=== PATIENT | male | born 1965 | race African-American/Black ===

== ENCOUNTER 2019-09-25 08:02 | Outpatient (RCR) | payer MEDICAID ==
[~2019-09-25] VITALS: Ht 165.1 cm; Wt 84.5 kg
[~2019-09-25 08:02] MED LIST: ACTOS15 MG PO; ALBU17AE23 IH; ALBU18HF2 INH; DESM0.2T29 PO; DIVA-76 PO; DIVA500T PO; FESO8TAB PO; FOLI1TAB24 PO; GLYB2.5T2; GLYB2.5T4 PO; LNS30CCR; METF-397 PO; METO-333 PO; MTP25TSR PO; PIOG15TA67 PO; PSYL1CAP3 PO; QUET100T33 PO; QUET300T PO; QUET300T44 PO; RISP0.2515 PO; SIMV20TA26 PO; SIMV20TA3 PO; TMSL.4C PO; TOLTA4 PO; VALS1TAB48 PO; VALS1TAB72 PO
== END 2019-09-25 14:01 | disposition home or self-care (01) ==
LOC: PREOP 08:02
PROVIDERS: ATTEND Surgery
DX: Z01.818 Encounter for other preprocedural examination (principal); Z11.59 Encounter for screening for other viral diseases
CPT/HCPCS: 87635

== ENCOUNTER 2019-09-29 09:18 | Day surgery (SDC) | payer MEDICAID ==
[~2019-09-29] VITALS: Ht 165.1 cm; Wt 84.5 kg
[2019-09-29] MEDS ORDERED: LACTATED RINGERS 1,000 ML IV ONE (09:30)
--- NOTE | 2019-09-29 09:34 | Progress Note-Pre Operative ---
Pre-Operative Progress Note H&P Reviewed The H&P was reviewed, patient examined and no changes noted. Date Seen by Provider: Sep 29, 2019 Time Seen by Provider: :34 Date H&P Reviewed: Sep 29, 2019 Time H&P Reviewed: 09:34 Pre-Operative Diagnosis: screening colonoscopy AL VIEYRA DO Sep 29, 2019 09:34
[2019-09-29] MEDS ORDERED: LACTATED RINGERS 1,000 ML IV STA (09:36)
[2019-09-29 09:39] VITALS: BP 128/80
[2019-09-29] MEDS ORDERED: PROPOFOL INJECTION 50 ML IV ONE (09:52)
--- OUTSIDE RECORDS SUMMARY | 2019-09-29 10:28 | XMS REPORT ---
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 Active 67504371 Problem Hypertensive retinopathy of both eyes H35.033 Active 1288065 Problem Open-angle glaucoma of both eyes, unspecified glaucoma stage, unspecified open-angle glaucoma type H40.10X0 Acti ve 54614814 Problem Obstructive sleep apnea G47.33 Active 31534528 Problem Type 2 diabetes mellitus with complication E11.8 Active 83829144 Problem Intermittent explosive disorder in adult F63.81 Active 16314605 Problem Bipolar disorder, unspecified F31.9 Active 98536330 Problem Mild intellectual disability F70 A ctive 47503142 Problem Other specified urinary incontinence N39.498 Active 196364268 Problem Diabetes E11.9 Active 98653321 Problem Type 2 diabetes mellitus wit h diabetic neuropathy, unspecified whether retirement insulin use E11.40 Active 654162 343977288 Problem Essential hypertension I10 Active 40962565 Problem Reactive airway disease, mild intermittent, uncomplicated J45.20 Active 539374273 Problem Gastroesophageal reflux disease without esophagitis K21.9 Active 301190456 Problem Other diabetic neurological complication associated with type 2 diabetes mellitus E11.49 Active 299105161 Problem Neuropathy G62.9 Active [id number] ALLERGIES No Information ENCOUNTERS Encounter Location Date Diagnosis [facility] [address] [facility] [id number] [address] [place] [phone] Dec, [facility] [address] [facility] [id number] [address] [place] [address] Oct, [facility] [address] [facility] [id number] [address] [place] [address] August, Intermittent explosive disor salvatore in adult F63.81 ; Bipolar disorder, unspecified F31.9 and Mild intellectual disability F70 [facility] [address] [facility] [id number] [address] [place] [address] 20 Jul, 2019 Type 2 diabetes mellitus wit h diabetic neuropathy, unspecified whether retirement insulin use E11.40 and Colon cancer screening Z12.11 [place] [address] [facility] [id number] [address] [place] [address] 10 Jul, 2019 Type 2 diabetes mellitus wit h diabetic neuropathy, unspecified whether retirement insulin use E11.40 and Tinea pedis, unspecified laterality B35.3 [place] [address] [facility] [id number] [address] [place] [address] 10 Jun, 2019 [facility] [address] [facility] [id number] [address] [place] [address] Jun, [facility] [address] [facility] [id number] [address] [place] [address] 04 Jun, 2019 Dysuria R30.0 [place] [address] [facility] [id number] [address] [place] [address] Jun, [facility] [address] [facility] [id number] [address] [place] [address] 20 May, 2019 Influenza J11.1 [place] [address] [facility] [id number] [address] [place] [phone] 13 May, 2019 Intermittent explosive disor salvatore in adult F63.81 [place] [address] [facility] [id number] [address] [place] [address] 12 May, 2019 [facility] [address] [facility] [id number] [address] [place] [address] Apr, Intermittent explosive disor salvatore in adult F63.81 ; Bipolar disorder, unspecified F31.9 and Mild intellectual disability F70 [facility] [id number] [place] [address] Apr, Oral health maintenance stat us requiring routine preventive dental care K08.9 [facility] [address] [id number] [address] [place] [address] 20 Apr, 2019 Type 2 diabetes mellitus wit h complication E11.8 ; History of test for hearing Z92.89 ; Colon cancer screening Z12.11 ; Other specified urinary incontinence N39.498 and Impacted cerumen, right ear H61.21 [facility] [address] [id number] [address] [place] [address] Apr, Onychomycosis B35.1 ; Other diabetic neurological complication associated with type 2 diabetes mellitus E11.49 and Tinea pedis of both feet B35.3 [facility] [address] [id number] [address] [place] [address] Feb, [facility] [address] [id number] [address] [place] [address] Jan, [facility] [address] [id number] [address] [place] [address] Jan, [facility] [address] [id number] [address] [place] [address] Jan, [facility] [address] [id number] [address] [place] [address] Jan, [facility] [address] [id number] [address] [place] [address] Jan, [facility] [address] [id number] [address] [place] [address] Jan, [facility] [address] [id number] [address] [place] [address] Jan, [facility] [address] [id number] [address] [place] [address] Jan, Anemia D64.9 [facility] [id number] [place] [address] 04 Jan, 2019 Dental examination Z01.20 an d Oral health maintenance status requiring routine preventive dental care K08.9 [place] [address] [place] [id number] [address] [place] [address] Jan, Onychomycosis B35.1 and Othe r diabetic neurological complication associated with type 2 diabetes mellitus E11.49 [place] [address] [place] [id number] [address] [place] [address] Jan, Anemia D64.9 [place] [address] [place] [id number] [address] [place] [address] Jan, [place] [address] [place] [id number] [address] [place] [place] [address] Dec, Urinary tract infection with out hematuria, site unspecified N39.0 [place] [address] [place] [id number] [address] [place] [address] Dec, Type 2 diabetes mellitus wit h complication E11.8 ; Urinary tract infection without hematuria, site unspecified N39.0 ; Impacted cerumen of both ears H61.23 ; Encounter for immunization Z23 and Hyponatremia E87.1 [place] [address] [place] [id number] [address] [place] [address] Dec, Intermittent explosive disor salvatore in adult F63.81 ; Dysuria R30.0 ; Type 2 diabetes mellitus with complication E11.8 ; Bipolar disorder, unspecified F31.9 and Mild intellectual disability F70 [place] [address] [place] [id number] [address] [place] [address] Dec, Dysuria R30.0 [place] [address] [place] [id number] [address] [place] [address] Dec, Intermittent explosive disor salvatore in adult F63.81 ; Bipolar disorder, unspecified F31.9 and Mild intellectual disability F70 [place] [address] [place] [id number] [address] [place] [address] Nov, [facility] [address] [id number] [address] [place] [address] Oct, [facility] [address] [facility] [id number] [place] [address] Oct, Oral health maintenance stat us requiring routine preventive dental care K08.9 [facility] [address] [facility] [id number] [address] [place] [address] August, Intermittent explosive disor salvatore in adult F63.81 ; Bipolar disorder, unspecified F31.9 and Mild intellectual disability F70 [facility] [address] [facility] [id number] [address] [place] [phone] August, Dental caries K02.9 [facility] [address] [facility] [id number] [address] [place] [address] Jul, Onychomycosis B35.1 ; Other diabetic neurological complication associated with type 2 diabetes mellitus E11.49 and Tinea pedis of both feet B35.3 [facility] [address] [id number] [address] [place] [address] [phone] Jul, Caries K02.9 [facility] [address] [facility] [id number] [address] [place] [address] Jul, Type 2 diabetes mellitus wit h complication E11.8 ; Tobacco abuse Z72.0 and Bipolar disorder, unspecified F31.9 [facility] [address] [facility] [id number] [address] [place] [address] Jun, [facility] [address] [id number] [address] [place] [address] [phone] Jun, Dental examination Z01.20 an d Oral health maintenance status requiring routine preventive dental care K08.9 [facility] [address] [facility] [id number] [address] [place] [address] May, Bilateral impacted cerumen H 61.23 [facility] [address] [facility] [id number] [address] [place] [address] Apr, Bipolar disorder, unspecifie d F31.9 ; Intermittent explosive disorder in adult F63.81 ; Type 2 diabetes mellitus with complication E11.8 ; Tobacco abuse Z72.0 and Colon cancer screening Z12.11 [facility] [address] [place] [address] Apr, Onychomycosis B35.1 and Othe r diabetic neurological complication associated with type 2 diabetes mellitus E11.49 [facility] [address] [place] [id number] [address] [place] [address] Apr, Intermittent explosive disor salvatore in adult F63.81 ; Bipolar disorder, unspecified F31.9 and Mild intellectual disability F70 [place] [address] [place] [id number] [address] [place] [address] 03 Mar, 2018 Diabetes E11.9 [facility] [address] [place] [id number] [address] [place] [address] Jan, Encounter for immunization Z 23 [facility] [address] [place] [address] Jan, Tinea pedis of both feet B35 .3 ; Other diabetic neurological complication associated with type 2 diabetes mellitus E11.49 and Onychomycosis B35.1 [facility] [address] [place] [id number] [address] [place] [address] Nov, Type 2 diabetes mellitus wit h complication E11.8 [place] [address] [place] [address] Nov, [facility] [address] [place] [id number] [address] [place] [address] Oct, Intermittent explosive disor salvatore in adult F63.81 ; Bipolar disorder, unspecified F31.9 and Mild intellectual disability F70 [facility] [address] [place] [id number] [address] [place] [phone] Oct, [facility] [address] [facility] [id number] [address] [place] [address] [phone] Oct, Dental examination Z01.20 [facility] [address] [facility] [id number] [address] [place] [address] 06 Oct, 2017 Onychomycosis B35.1 and Othe r diabetic neurological complication associated with type 2 diabetes mellitus E11.49 [facility] [address] [place] [id number] [address] [place] [address] Sep, Type 2 diabetes mellitus wit h complication E11.8 and Colon cancer screening Z12.11 [facility] [address] [place] [id number] [address] [place] [address] 18 Sep, 2017 Type 2 diabetes mellitus wit h complication E11.8 ; Colon cancer screening Z12.11 and Neuropathy G62.9 [place] [address] [place] [id number] [address] [place] [address] August, Diabetes E11.9 [facility] [address] [place] [id number] [address] [place] [address] [id number] Jul, Dental examination Z01.20 [place] [id number] [place] [address] 27 May, 2017 Mild intellectual disability F70 [place] [address] [place] [id number] [address] [place] [address] 07 May, 2017 Mild intellectual disability F70 ; High risk medication use Z79.899 ; Intermittent explosive disorder in adult F63.81 and Bipolar disorder, unspecified F31.9 [place] [address] [place] [address] May, [place] [address] [place] [id number] [address] [place] [address] May, [place] [address] [place] [id number] [address] [place] [address] Apr, Type 2 diabetes mellitus wit h complication E11.8 ; Mild intellectual disability F70 ; Gastroesophageal reflux disease without esophagitis K21.9 ; Reactive airway disease, mild intermittent, uncomplicated J45.20 and Tobacco abuse Z72.0 [place] [address] [place] [address] Apr, High risk medication use Z79 .899 ; Mild intellectual disability F70 ; Intermittent explosive disorder in adult F63.81 and Bipolar disorder, unspecified F31.9 [facility] [address] [id number] [address] [place] [address] [phone] Mar, Encounter for dental exam an d cleaning w/o abnormal findings Z01.20 [facility] [address] [id number] [address] [place] [address] [phone] Mar, Dental examination Z01.20 [facility] [address] [id number] [address] [place] [phone] 12 Jan, 2017 [facility] [address] [id number] [address] [place] [address] Jan, [facility] [address] [id number] [address] [place] [address] Jan, Mild intellectual disability F70 ; Bipolar disorder, unspecified F31.9 and Intermittent explosive disorder in adult F63.81 [facility] [address] [id number] [address] [place] [address] 02 Jan, 2017 Diabetes E11.9 [facility] [address] [id number] [address] [place] [address] [phone] Dec, Encounter for dental examina tion and cleaning without abnormal findings Z01.20 [facility] [address] [id number] [address] [place] [address] 12 Dec, 2016 Bipolar disorder, unspecifie d F31.9 ; Intermittent explosive disorder in adult F63.81 and Mild intellectual disability F70 [facility] [address] [id number] [address] [place] [address] Nov, Diabetes E11.9 [facility] [address] [id number] [address] [place] [address] Nov, [facility] [address] [id number] [address] [place] [phone] 14 Nov, 2016 Diabetes E11.9 and Colon can cer screening Z12.11 [facility] [address] [facility] [id number] [id number] 21 Sep, 2016 Dental examination Z01.20 [facility] [address] [id number] [address] [place] [address] [id number] 21 Sep, 2016 Encounter for dental examina tion and cleaning without abnormal findings Z01.20 [facility] [address] [id number] [address] [place] [address] 13 Sep, 2016 Bipolar disorder, unspecifie d F31.9 [facility] [address] [id number] [address] [place] [address] 12 Sep, 2016 Bipolar disorder, unspecifie d F31.9 [facility] [address] [facility] [id number] [address] [place] [phone] Jul, [facility] [address] [facility] [id number] [address] [place] [address] 13 Jul, 2016 Type 2 diabetes mellitus wit h complication E11.8 [facility] [address] [id number] [address] [place] [address] [id number] 15 Jun, 2016 Encounter for dental examina tion and cleaning without abnormal findings Z01.[address] [id number] [id number] 15 Jun, 2016 Dental examination Z01.20 [facility] [address] [facility] [id number] [address] [place] [address] 18 Apr, 2016 Sports physical Z02.5 [facility] [address] [facility] [id number] [address] [place] [phone] 14 Mar, 2016 Bipolar disorder, in partial remission, most recent episode manic F31.73 and Intermittent explosive disorder in adult F63.81 [facility] [address] [id number] [address] [place] [address] 08 Mar, 2016 [facility] [address] [facility] [id number] [address] [place] [address] Mar, Diabetes E11.9 [facility] [address] [id number] [address] [place] [address] [phone] Feb, Encounter for dental examina tion and cleaning without abnormal findings Z01.20 [facility] [address] [id number] [address] [place] [address] 22 Dec, 2015 Nocturnal hypoxemia G47.34 a nd Encounter for immunization Z23 [facility] [address] [id number] [address] [place] [phone] 15 Dec, 2015 [facility] [address] [facility] [id number] [address] [place] [address] Dec, [facility] [address] [facility] [id number] [address] [place] [address] Dec, Bipolar disorder, unspecifie d F31.9 [facility] [address] [facility] [id number] [place] [address] [id number] Oct, Encounter for dental examina tion and cleaning without abnormal findings Z01.20 [place] [id number] [facility] [id number] [place] [address] [id number] Oct, Dental examination Z01.20 [facility] [address] [facility] [id number] [address] [place] [address] Oct, Diabetes E11.9 [facility] [address] [facility] [id number] [address] [place] [address] Oct, Diabetes E11.9 ; Reactive ai rway disease, mild intermittent, uncomplicated J45.20 and Tobacco abuse Z72.0 [facility] [address] [facility] [id number] [address] [place] [address] Sep, Bipolar disorder, unspecifie d F31.9 and Depression F32.9 [facility] [address] [facility] [id number] [address] [place] [address] Sep, [facility] [address] [facility] [id number] [address] [place] [address] August, Tinea pedis of both feet B35 .3 and DM w/o complication type II, uncontrolled E11.65 [place] [address] [address] Jul, [place] [address] [address] Jul, [place] [address] [address] Jul, Obstructive sleep apnea G47. 33 [place] [address] [address] Jun, Diabetes E11.9 [place] [address] [address] Jun, [place] [address] [address] Jun, [place] [address] [address] Jun, Bipolar disorder, unspecifie d F31.9 and Mental retardation F79 [place] [address] [address] Apr, [place] [address] [address] Feb, Diabetes E11.9 ; Encounter f or immunization Z23 ; Cough R05 and Nicotine abuse Z72.0 [place] [address] [address] Jan, Bipolar disorder, unspecifie d F31.9 and Diabetes mellitus without mention of complication, type II or unspecified type, uncontrolled 250.02 [place] [address] [address] Jan, [place] [address] [address] Dec, Reactive airway disease 493. 90 and Enuresis 788.30 [facility] [address] [id number] [address] [place] [address] Dec, [facility] [address] [facility] [id number] [address] [place] [address] Nov, [facility] [address] [facility] [id number] [address] [place] [address] Nov, [facility] [address] [facility] [id number] [address] [place] [address] Nov, Annual physical exam V70.0 ; Urinary incontinence 788.30 ; Diabetes 250.00 and Hypertension 401.9 [facility] [address] [facility] [id number] [address] [place] [address] Oct, Diabetes mellitus without me ntion of complication, type II or unspecified type, uncontrolled 250.02 [facility] [address] [facility] [id number] [address] [place] [address] Oct, Diabetes mellitus without me ntion of complication, type II or unspecified type, uncontrolled 250.02 [facility] [address] [facility] [id number] [address] [place] [address] Oct, Diabetes mellitus without me ntion of complication, type II or unspecified type, uncontrolled 250.02 [facility] [address] [place] [id number] [address] [place] [address] Oct, [facility] [address] [facility] [id number] [address] [place] [id number] Oct, [facility] [address] [facility] [id number] [address] [place] [id number] Oct, Bipolar disorder, unspecifie d 296.80 [facility] [address] [id number] [address] [place] [id number] Sep, Dental examination V72.2 [facility] [address] [facility] [id number] [address] [place] [id number] August, [facility] [address] [id number] [address] [place] [address] [id number] August, Dental examination V72.2 [facility] [address] [id number] [address] [place] [address] August, [facility] [address] [id number] [address] [place] [address], [place] [address] 14 Jul, 2014 [facility] [address] [id number] [address] [place] [address] Jul, [facility] [address] [id number] [address] [place] [address], [place] [address] 17 Jun, 2014 [facility] [address] [id number] [address] [place] [address], [place] [address] Jun, [facility] [address] [id number] [address] [place] [address] Jun, [facility] [address] [id number] [address] [place] [address] Jun, [facility] [address] [id number] [address] [place] [address] May, [facility] [address] [id number] [address] [place] [address] 23 May, 2014 [facility] [address] [id number] [address] [place] [address] 16 May, 2014 [facility] [address] [id number] [address] [place] [address] 16 May, 2014 [facility] [address] [id number] [address] [place] [address] May, [facility] [address] [id number] [address] [place] [address] 16 May, 2014 [facility] [address] [id number] [address] [place] [address] 16 May, 2014 [facility] [address] [id number] [address] [place] [address] May, 2014 [facility] [address] [id number] [address] [place] [address], [place] [address] May, 2014 [facility] [address] [id number] [address] [place] [address], [place] [address] May, 2014 [facility] [address] [id number] [address] [place] [address], [place] [address] May, 2014 [facility] [address] [id number] [address] [place] [address], [place] [address] May, 2014 [facility] [address] [id number] [address] [place] [address], [place] [address] May, 2014 [facility] [address] [id number] [address] [place] [address], [place] [address] May, 2014 [facility] [address] [id number] [address] [place] [address], [place] [address] May, 2014 [facility] [address] [id number] [address] [place] [address], [place] [address] Apr, [facility] [address] [id number] [address] [place] [address], [place] [address] Apr, [facility] [address] [id number] [address] [place] [address], [place] [address] Apr, [facility] [address] [id number] [address] [place] [address], [place] [address] Apr, [facility] [address] [id number] [address] [address] Apr, [facility] [address] [id number] [address] [place] [address] Apr, [facility] [address] [id number] [address] [place] [address], [place] [address] Apr, [facility] [address] [id number] [address] [place] [address] Apr, [facility] [address] [id number] [address] [place] [address], [place] [address] Apr, [facility] [address] [id number] [address] [place] [address], [place] [address] Apr, [facility] [address] [id number] [address] [place] [address], [place] [address] Apr, [facility] [address] [id number] [address] [place] [address], [place] [address] Apr, [facility] [address] [id number] [address] [place] [address], [place] [address] Mar, [facility] [address] [id number] [address] [place] [address], [place] [address] Mar, [facility] [address] [id number] [address] [place] [address], [place] [address] Mar, [facility] [address] [id number] [address] [place] [address], [place] [address] Mar, [facility] [address] [id number] [address] [place] [address], [place] [address] Mar, [facility] [address] [id number] [address] [place] [address], [place] [address] Mar, [facility] [address] [id number] [address] [place] [address], [place] [address] Feb, [facility] [address] [id number] [address] [place] [address], [place] [address] Feb, [facility] [address] [id number] [address] [place] [address], [place] [address] Feb, [facility] [address] [id number] [address] [place] [address], [place] [address] 13 Feb, 2014 [facility] [address] [id number] [address] [place] [address], [place] [address] 14 Jan, 2014 [facility] [address] [id number] [address] [place] [address], [place] [address] 14 Jan, 2014 [facility] [address] [id number] [address] [place] [address], [place] [address] 14 Jan, 2014 [facility] [address] [id number] [address] [place] [address], [place] [address] Jan, [facility] [address] [id number] [address] [place] [address], [place] [address] Dec, [facility] [address] [id number] [address] [place] [address], [place] [address] Dec, [facility] [address] [id number] [address] [place] [address], [place] [address] 15 Dec, 2013 [facility] [address] [id number] [address] [place] [address], [place] [address] Dec, [facility] [address] [id number] [address] [place] [address], [place] [address] Nov, [facility] [address] [id number] [address] [place] [address], [place] [address] Nov, [facility] [address] [id number] [address] [place] [address], [place] [address] Nov, [facility] [address] [id number] [address] [place] [address], [place] [address] Nov, [facility] [address] [id number] [address] [place] [address], [place] [address] Nov, [facility] [address] [id number] [address] [place] [address], [place] [address] Nov, [facility] [address] [id number] [address] [place] [address], [place] [address] Nov, [facility] [address] [id number] [address] [place] [address], [place] [address] Oct, [facility] [address] [id number] [address] [place] [address], [place] [address] Oct, [facility] [address] [id number] [facility] [address] Oct, [facility] [address] [id number] [address] [place] [address], [place] [address] Oct, [facility] [address] [id number] [address] [place] [address], [place] [address] Oct, [facility] [address] [id number] [address] [place] [address], [place] [address] Oct, [facility] [address] [id number] [address] [place] [address], [place] [address] Oct, [facility] [address] [id number] [address] [place] [address], [place] [address] Sep, [facility] [address] [id number] [address] [place] [address], [place] [address] Sep, [facility] [address] [id number] [address] [place] [address], [place] [address] Sep, [facility] [address] [id number] [address] [place] [address], [place] [address] Sep, [facility] [address] [id number] [address] [place] [address], [place] [address] Sep, [facility] [address] [id number] [address] [place] [address], [place] [address] Jul, [facility] [address] [id number] [address] [place] [address], [place] [address] Jul, [facility] [address] [id number] [address] [place] [address], [place] [address] Jul, [facility] [address] [id number] [address] [place] [address], [place] [address] Jul, [facility] [address] [id number] [address] [place] [address], [place] [address] Jul, [facility] [address] [id number] [address] [place] [address], [place] [address] Jul, [facility] [address] [id number] [facility] [address] Jul, [facility] [address] [id number] [address] [place] [address], [place] [address] Jul, [facility] [address] [id number] [address] [place] [address], [place] [address] Jul, [facility] [address] [id number] [address] [place] [address], [place] [address] Jul, [facility] [address] [id number] [address] [place] [address], [place] [address] Jul, [facility] [address] [id number] [address] [place] [address], [place] [address] Jul, [facility] [address] [id number] [address] [place] [address], [place] [address] Jun, [facility] [address] [id number] [address] [place] [address], [place] [address] Jun, [facility] [address]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
--- OUTSIDE RECORDS SUMMARY | 2019-09-29 10:29 | XMS REPORT ---
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 Name Role Phone JEET ALANIZ Unavailable PROBLEMS Type Condition ICD9-CM Code [id number] Code Onset Dates Condition S tatus SNOMED Code Problem Open-angle glaucoma of both eyes, unspecified glaucoma stage, unspecified open-angle glaucoma type H40.10X0 Acti ve 56045476 Problem Adjustment disorder, unspecified type F43.20 Active 61568180 Problem Obstructive sleep apnea G47.33 Active 97755520 Problem Hypertensive retinopathy of both eyes H35.033 Active 9816208 Problem Type 2 diabetes mellitus with complication E11.8 Active 58451804 Problem Essential hypertension I10 Active 73900665 Problem Depression F32.9 Active 98707967 Problem Intermittent explosive disorder F63.81 Active 83535329 Problem Intermittent explosive disorder in adult F63.81 Active 51550615 Problem Bipolar disorder, unspecified F31.9 Active 08440552 Problem Mild intellectual disability F70 A ctive 51283773 Problem Other specified urinary incontinence N39.498 Active 673605967 Problem Bipolar disorder, in partial remission, most rec ent episode manic F31.73 Active 77443910 Problem 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 Active 86478007 Problem Type 2 diabetes mellitus wit h diabetic neuropathy, unspecified 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 carman insulin use E11.40 Active 182771 223682239 Problem Diabetes E11.9 Active 89784315 Problem Reactive airway disease, unspecified asthma justin rity, uncomplicated J45.909 Active 679536257682 Problem Reactive airway disease, mild intermittent, uncomplicated J45.20 Active 874351124 Problem Gastroesophageal reflux disease without esophagitis K21.9 Active 293917690 Problem Other diabetic neurological complication associated with type 2 diabetes mellitus E11.49 Active 973721690 Problem Neuropathy G62.9 Active 781261561 ALLERGIES No Information ENCOUNTERS Encounter Location Date Diagnosis [facility] [address] [facility] [id number] [address] [place] [phone] Oct, [facility] [address] [facility] [id number] [address] [place] [phone] August, [facility] [address] [facility] [id number] [address] [place] [phone] Jul, Type 2 diabetes mellitus wit h diabetic neuropathy, unspecified whether retirement insulin use E11.40 and Colon cancer screening Z12.11 [facility] [address] [facility] [id number] [address] [place] [phone] 10 Jul, 2019 Type 2 diabetes mellitus wit h diabetic neuropathy, unspecified whether retirement insulin use E11.40 and Tinea pedis, unspecified laterality B35.3 [facility] [address] [facility] [id number] [address] [place] [phone] 10 Jun, 2019 [facility] [address] [facility] [id number] [address] [place] [phone] Jun, [facility] [address] [facility] [id number] [address] [place] [phone] 04 Jun, 2019 Dysuria R30.0 [facility] [address] [facility] [id number] [address] [place] [id number] 02 Jun, 2019 [facility] [address] [facility] [id number] [address] [place] [id number] 20 May, 2019 Influenza J11.1 [facility] [address] [place] [id number] [address] [place] [id number] 13 May, 2019 Intermittent explosive disor salvatore in adult F63.81 [facility] [address] [facility] [id number] [address] [place] [id number] 12 May, 2019 [facility] [address] [facility] [id number] [address] [place] [phone] Apr, Intermittent explosive disor salvatore in adult F63.81 ; Bipolar disorder, unspecified F31.9 and Mild intellectual disability F70 [facility] [id number] [place] [id number] Apr, Oral health maintenance stat us requiring routine preventive dental care K08.9 [facility] [address] [id number] [address] [place] [id number] 20 Apr, 2019 Type 2 diabetes mellitus wit h complication E11.8 ; History of test for hearing Z92.89 ; Colon cancer screening Z12.11 ; Other specified urinary incontinence N39.498 and Impacted cerumen, right ear H61.21 [facility] [address] [id number] [address] [place] [phone] Apr, Onychomycosis B35.1 ; Other diabetic neurological complication associated with type 2 diabetes mellitus E11.49 and Tinea pedis of both feet B35.3 [facility] [address] [id number] [address] [place] [phone] Feb, [facility] [address] [id number] [address] [place] [phone] Jan, [facility] [address] [id number] [address] [place] [phone] Jan, [facility] [address] [id number] [address] [place] [id number] Jan, [facility] [address] [id number] [address] [place] [id number] Jan, [facility] [address] [id number] [address] [place] [phone] Jan, [facility] [address] [id number] [address] [place] [phone] Jan, [facility] [address] [id number] [address] [place] [phone] Jan, [facility] [address] [id number] [address] [place] [phone] Jan, Anemia D64.9 [facility] [id number] [place] [id number] 04 Jan, 2019 Dental examination Z01.20 an d Oral health maintenance status requiring routine preventive dental care K08.9 [place] [address] [place] [id number] [address] [place] [phone] Jan, Onychomycosis B35.1 and Othe r diabetic neurological complication associated with type 2 diabetes mellitus E11.49 [place] [address] [place] [id number] [address] [place] [phone] Jan, Anemia D64.9 [place] [address] [place] [id number] [address] [place] [phone] Jan, [place] [address] [place] [id number] [address] [place] [phone] Dec, Urinary tract infection with out hematuria, site unspecified N39.0 [place] [address] [place] [id number] [address] [place] [id number] Dec, Type 2 diabetes mellitus wit h complication E11.8 ; Urinary tract infection without hematuria, site unspecified N39.0 ; Impacted cerumen of both ears H61.23 ; Encounter for immunization Z23 and Hyponatremia E87.1 [place] [address] [place] [id number] [address] [place] [id number] Dec, Intermittent explosive disor salvatore in adult F63.81 ; Dysuria R30.0 ; Type 2 diabetes mellitus with complication E11.8 ; Bipolar disorder, unspecified F31.9 and Mild intellectual disability F70 [place] [address] [place] [id number] [address] [place] [phone] Dec, Dysuria R30.0 [place] [address] [place] [id number] [address] [place] [phone] Dec, Intermittent explosive disor salvatore in adult F63.81 ; Bipolar disorder, unspecified F31.9 and Mild intellectual disability F70 [place] [address] [place] [id number] [address] [place] [phone] Nov, [facility] [address] [id number] [address] [place] [phone] Oct, [facility] [address] [facility] [id number] [place] [phone] Oct, Oral health maintenance stat us requiring routine preventive dental care K08.9 [facility] [address] [facility] [id number] [address] [place] [phone] August, Intermittent explosive disor salvatore in adult F63.81 ; Bipolar disorder, unspecified F31.9 and Mild intellectual disability F70 [facility] [address] [facility] [id number] [address] [place] [address] [id number] August, Dental caries K02.9 [facility] [address] [facility] [id number] [address] [place] [phone] Jul, Onychomycosis B35.1 ; Other diabetic neurological complication associated with type 2 diabetes mellitus E11.49 and Tinea pedis of both feet B35.3 [facility] [address] [id number] [address] [place] [address] [phone] Jul, Caries K02.9 [facility] [address] [facility] [id number] [address] [place] [phone] Jul, Type 2 diabetes mellitus wit h complication E11.8 ; Tobacco abuse Z72.0 and Bipolar disorder, unspecified F31.9 [facility] [address] [facility] [id number] [address] [place] [phone] Jun, [facility] [address] [id number] [address] [place] [address] [id number] Jun, Dental examination Z01.20 an d Oral health maintenance status requiring routine preventive dental care K08.9 [facility] [address] [facility] [id number] [address] [place] [phone] May, Bilateral impacted cerumen H 61.23 [facility] [address] [facility] [id number] [address] [place] [id number] Apr, Bipolar disorder, unspecifie d F31.9 ; Intermittent explosive disorder in adult F63.81 ; Type 2 diabetes mellitus with complication E11.8 ; Tobacco abuse Z72.0 and Colon cancer screening Z12.11 [facility] [address] [place] [phone] Apr, Onychomycosis B35.1 and Othe r diabetic neurological complication associated with type 2 diabetes mellitus E11.49 [facility] [address] [place] [id number] [address] [place] [phone] Apr, Intermittent explosive disor salvatore in adult F63.81 ; Bipolar disorder, unspecified F31.9 and Mild intellectual disability F70 [place] [address] [place] [id number] [address] [place] [phone] 03 Mar, 2018 Diabetes E11.9 [facility] [address] [place] [id number] [address] [place] [phone] Jan, Encounter for immunization Z 23 [facility] [address] [place] [phone] Jan, Tinea pedis of both feet B35 .3 ; Other diabetic neurological complication associated with type 2 diabetes mellitus E11.49 and Onychomycosis B35.1 [facility] [address] [place] [id number] [address] [place] [phone] Nov, Type 2 diabetes mellitus wit h complication E11.8 [place] [address] [place] [phone] Nov, [facility] [address] [place] [id number] [address] [place] [phone] Oct, Intermittent explosive disor salvatore in adult F63.81 ; Bipolar disorder, unspecified F31.9 and Mild intellectual disability F70 [facility] [address] [place] [id number] [address] [place] [phone] Oct, [facility] [address] [facility] [id number] [address] [place] [address] [phone] Oct, Dental examination Z01.20 [facility] [address] [facility] [id number] [address] [place] [phone] 06 Oct, 2017 Onychomycosis B35.1 and Othe r diabetic neurological complication associated with type 2 diabetes mellitus E11.49 [facility] [address] [place] [id number] [address] [place] [phone] Sep, Type 2 diabetes mellitus wit h complication E11.8 and Colon cancer screening Z12.11 [facility] [address] [place] [id number] [address] [place] [phone] 18 Sep, 2017 Type 2 diabetes mellitus wit h complication E11.8 ; Colon cancer screening Z12.11 and Neuropathy G62.9 [place] [address] [place] [id number] [address] [place] [phone] August, Diabetes E11.9 [facility] [address] [place] [id number] [address] [place] [address] [id number] Jul, Dental examination Z01.20 [place] [id number] [place] [phone] 27 May, 2017 Mild intellectual disability F70 [place] [address] [place] [id number] [address] [place] [id number] 07 May, 2017 Mild intellectual disability F70 ; High risk medication use Z79.899 ; Intermittent explosive disorder in adult F63.81 and Bipolar disorder, unspecified F31.9 [place] [address] [place] [phone] May, [place] [address] [place] [id number] [address] [place] [phone] May, [place] [address] [place] [id number] [address] [place] [phone] Apr, Type 2 diabetes mellitus wit h complication E11.8 ; Mild intellectual disability F70 ; Gastroesophageal reflux disease without esophagitis K21.9 ; Reactive airway disease, mild intermittent, uncomplicated J45.20 and Tobacco abuse Z72.0 [place] [address] [place] [phone] Apr, High risk medication use Z79 .899 ; Mild intellectual disability F70 ; Intermittent explosive disorder in adult F63.81 and Bipolar disorder, unspecified F31.9 [facility] [address] [id number] [address] [place] [address] [id number] Mar, Encounter for dental exam an d cleaning w/o abnormal findings Z01.20 [facility] [address] [id number] [address] [place] [address] [phone] Mar, Dental examination Z01.20 [facility] [address] [id number] [address] [place] [phone] 12 Jan, 2017 [facility] [address] [id number] [address] [place] [phone] Jan, [facility] [address] [id number] [address] [place] [phone] Jan, Mild intellectual disability F70 ; Bipolar disorder, unspecified F31.9 and Intermittent explosive disorder in adult F63.81 [facility] [address] [id number] [address] [place] [phone] 02 Jan, 2017 Diabetes E11.9 [facility] [address] [id number] [address] [place] [address] [id number] Dec, Encounter for dental examina tion and cleaning without abnormal findings Z01.20 [facility] [address] [id number] [address] [place] [phone] 12 Dec, 2016 Bipolar disorder, unspecifie d F31.9 ; Intermittent explosive disorder in adult F63.81 and Mild intellectual disability F70 [facility] [address] [id number] [address] [place] [phone] Nov, Diabetes E11.9 [facility] [address] [id number] [address] [place] [phone] Nov, [facility] [address] [id number] [address] [place] [id number] 14 Nov, 2016 Diabetes E11.9 and Colon can cer screening Z12.11 [facility] [address] [facility] [address] [id number] [id number] 21 Sep, 2016 Dental examination Z01.20 [facility] [address] [id number] [address] [place] [address] [id number] 21 Sep, 2016 Encounter for dental examina tion and cleaning without abnormal findings Z01.20 [facility] [address] [id number] [address] [place] [phone] 13 Sep, 2016 Bipolar disorder, unspecifie d F31.9 [facility] [address] [id number] [address] [place] [id number] 12 Sep, 2016 Bipolar disorder, unspecifie d F31.9 [facility] [address] [facility] [id number] [address] [place] [phone] Jul, [facility] [address] [facility] [id number] [address] [place] [id number] 13 Jul, 2016 Type 2 diabetes mellitus wit h complication E11.8 [facility] [address] [id number] [address] [place] [address] [id number] 15 Jun, 2016 Encounter for dental examina tion and cleaning without abnormal findings Z01.[address] [id number] [id number] 15 Jun, 2016 Dental examination Z01.20 [facility] [address] [facility] [id number] [address] [place] [phone] 18 Apr, 2016 Sports physical Z02.5 [facility] [address] [facility] [id number] [address] [place] [id number] 14 Mar, 2016 Bipolar disorder, in partial remission, most recent episode manic F31.73 and Intermittent explosive disorder in adult F63.81 [facility] [address] [id number] [address] [place] [phone] 08 Mar, 2016 [facility] [address] [facility] [id number] [address] [place] [id number] Mar, Diabetes E11.9 [facility] [address] [id number] [address] [place] [address] [phone] Feb, Encounter for dental examina tion and cleaning without abnormal findings Z01.20 [facility] [address] [id number] [address] [place] [phone] 22 Dec, 2015 Nocturnal hypoxemia G47.34 a nd Encounter for immunization Z23 [facility] [address] [id number] [address] [place] [phone] 15 Dec, 2015 [facility] [address] [facility] [id number] [address] [place] [phone] Dec, [facility] [address] [facility] [id number] [address] [place] [phone] Dec, Bipolar disorder, unspecifie d F31.9 [facility] [address] [facility] [id number] [place] [address] [id number] Oct, Encounter for dental examina tion and cleaning without abnormal findings Z01.20 [place] [address] [facility] [id number] [place] [address] [id number] Oct, Dental examination Z01.20 [facility] [address] [facility] [id number] [address] [place] [id number] Oct, Diabetes E11.9 [facility] [address] [facility] [id number] [address] [place] [id number] Oct, Diabetes E11.9 ; Reactive ai rway disease, mild intermittent, uncomplicated J45.20 and Tobacco abuse Z72.0 [facility] [address] [facility] [id number] [address] [place] [id number] Sep, Bipolar disorder, unspecifie d F31.9 and Depression F32.9 [facility] [address] [facility] [id number] [address] [place] [id number] Sep, [facility] [address] [facility] [id number] [address] [place] [id number] August, Tinea pedis of both feet B35 .3 and DM w/o complication type II, uncontrolled E11.65 [place] [address] [id number] Jul, [place] [address] [phone] Jul, [place] [address] [phone] Jul, Obstructive sleep apnea G47. 33 [place] [address] [address] Jun, Diabetes E11.9 [place] [address] [id number] Jun, [place] [address] [address] Jun, [place] [address] [id number] Jun, Bipolar disorder, unspecifie d F31.9 and Mental retardation F79 [place] [address] [address] Apr, [place] [address] [phone] Feb, Diabetes E11.9 ; Encounter f or immunization Z23 ; Cough R05 and Nicotine abuse Z72.0 [place] [address] [phone] Jan, Bipolar disorder, unspecifie d F31.9 and Diabetes mellitus without mention of complication, type II or unspecified type, uncontrolled 250.02 [place] [address] [id number] Jan, [place] [address] [phone] Dec, Reactive airway disease 493. 90 and Enuresis 788.30 [facility] [address] [id number] [address] [place] [id number] Dec, [facility] [address] [facility] [id number] [address] [place] [phone] Nov, [facility] [address] [facility] [id number] [address] [place] [phone] Nov, [facility] [address] [facility] [id number] [address] [place] [id number] Nov, Annual physical exam V70.0 ; Urinary incontinence 788.30 ; Diabetes 250.00 and Hypertension 401.9 [facility] [address] [facility] [id number] [address] [place] [phone] Oct, Diabetes mellitus without me ntion of complication, type II or unspecified type, uncontrolled 250.02 [facility] [address] [facility] [id number] [address] [place] [phone] Oct, Diabetes mellitus without me ntion of complication, type II or unspecified type, uncontrolled 250.02 [facility] [address] [facility] [id number] [address] [place] [id number] Oct, Diabetes mellitus without me ntion of complication, type II or unspecified type, uncontrolled 250.02 [facility] [address] [place] [id number] [address] [place] [phone] Oct, [facility] [address] [facility] [id number] [address] [place] [phone] Oct, [facility] [address] [facility] [id number] [address] [place] [phone] Oct, Bipolar disorder, unspecifie d 296.80 [facility] [address] [id number] [address] [place] [id number] Sep, Dental examination V72.2 [facility] [address] [facility] [id number] [address] [place] [id number] August, [facility] [address] [place] [id number] [address] [place] [id number] August, Dental examination V72.2 [facility] [address] [id number] [address] [place] [id number] August, [facility] [address] [id number] [address] [place] [address], [place] [phone] 14 Jul, 2014 [facility] [address] [id number] [address] [place] [phone] Jul, [facility] [address] [id number] [address] [place] [address], [place] [phone] 17 Jun, 2014 [facility] [address] [id number] [address] [place] [address], [place] [address] Jun, [facility] [address] [id number] [address] [place] [address] Jun, [facility] [address] [id number] [address] [place] [address] Jun, [facility] [address] [id number] [address] [place] [address] May, [facility] [address] [id number] [address] [place] [address] 23 May, 2014 [facility] [address] [id number] [address] [place] [address] 16 May, 2014 [facility] [address] [id number] [address] [place] [address] 16 May, 2014 [facility] [address] [id number] [address] [place] [address] May, [facility] [address] [id number] [address] [place] [address] 16 May, 2014 [facility] [address] [id number] [address] [place] [address] 16 May, 2014 [facility] [address] [id number] [address] [place] [address] May, 2014 [facility] [address] [id number] [address] [place] [address], [place] [address] May, 2014 [facility] [address] [id number] [address] [place] [address], [place] [address] May, 2014 [facility] [address] [id number] [address] [place] [address], [place] [address] May, 2014 [facility] [address] [id number] [address] [place] [address], [place] [address] May, 2014 [facility] [address] [id number] [address] [place] [address], [place] [address] May, 2014 [facility] [address] [id number] [address] [place] [address], [place] [address] May, 2014 [facility] [address] [id number] [address] [place] [address], [place] [address] May, 2014 [facility] [address] [id number] [address] [place] [address], [place] [address] Apr, [facility] [address] [id number] [address] [place] [address], [place] [address] Apr, [facility] [address] [id number] [address] [place] [address], [place] [address] Apr, [facility] [address] [id number] [address] [place] [address], [place] [address] Apr, [facility] [address] [id number] [address] [place] [address] Apr, [facility] [address] [id number] [address] [place] [address] Apr, [facility] [address] [id number] [address] [place] [address], [place] [address] Apr, [facility] [address] [id number] [address] [place] [id number] Apr, [facility] [address] [id number] [address] [place] [address], [place] [address] Apr, [facility] [address] [id number] [address] [place] [address], [place] [address] Apr, [facility] [address] [id number] [address] [place] [address], [place] [address] Apr, [facility] [address] [id number] [address] [place] [address], [place] [address] Apr, [facility] [address] [id number] [address] [place] [address], [place] [address] Mar, [facility] [address] [id number] [address] [place] [address], [place] [address] Mar, [facility] [address] [id number] [address] [place] [address], [place] [address] Mar, [facility] [address] [id number] [address] [place] [address], [place] [address] Mar, [facility] [address] [id number] [address] [place] [address], [place] [address] Mar, [facility] [address] [id number] [address] [place] [address], [place] [address] Mar, [facility] [address] [id number] [address] [place] [address], [place] [address] Feb, [facility] [address] [id number] [address] [place] [address], [place] [address] Feb, [facility] [address] [id number] [address] [place] [address], [place] [address] Feb, [facility] [address] [id number] [address] [place] [address], [place] [address] 13 Feb, 2014 [facility] [address] [id number] [address] [place] [address], [place] [address] 14 Jan, 2014 [facility] [address] [id number] [address] [place] [address], [place] [address] 14 Jan, 2014 [facility] [address] [id number] [address] [place] [address], [place] [address] 14 Jan, 2014 [facility] [address] [id number] [address] [place] [address], [place] [address] Jan, [facility] [address] [id number] [address] [place] [address], [place] [address] Dec, [facility] [address] [id number] [address] [place] [address], [place] [address] Dec, [facility] [address] [id number] [address] [place] [address], [place] [address] 15 Dec, 2013 [facility] [address] [id number] [address] [place] [address], [place] [address] Dec, [facility] [address] [id number] [address] [place] [address], [place] [address] Nov, [facility] [address] [id number] [address] [place] [address], [place] [address] Nov, [facility] [address] [id number] [address] [place] [address], [place] [address] Nov, [facility] [address] [id number] [address] [place] [address], [place] [address] Nov, [facility] [address] [id number] [address] [place] [address], [place] [address] Nov, [facility] [address] [id number] [address] [place] [address], [place] [address] Nov, [facility] [address] [id number] [address] [place] [address], [place] [address] Nov, [facility] [address] [id number] [address] [place] [address], [place] [address] Oct, [facility] [address] [id number] [address] [place] [address], [place] [address] Oct, [facility] [address] [id number] [facility] [place] [address] Oct, [facility] [place] [address] [id number] [address] [place] [address], [place] [address] Oct, [facility] [address] [id number] [address] [place] [address], [place] [address] Oct, [facility] [place] [address] [id number] [address] [place] [address], [place] [address] Oct, [facility] [address] [id number] [address] [place] [address], [place] [address] Oct, [facility] [address] [id number] [address] [place] [address], [place] [address] Sep, [facility] [place] [address] [id number] [address] [place] [address], [place] [address] Sep, [facility] [address] [id number] [address] [place] [address], [place] [address] Sep, [facility] [place] [address] [id number] [address] [place] [address], [place] [address] Sep, [facility] [place] [address] [id number] [address] [place] [address], [place] [address] Sep, [facility] [address] [id number] [address] [place] [address], [place] [address] Jul, [facility] [address] [id number] [address] [place] [address], [place] [address] Jul, [facility] [address] [id number] [address] [place] [address], [place] [address] Jul, [facility] [address] [id number] [address] [place] [address], [place] [address] Jul, [facility] [address] [id number] [address] [place] [address], [place] [address] Jul, [facility] [address] [id number] [address] [place] [address], [place] [address] Jul, [facility] [address] [id number] [facility] [place] [address] Jul, [facility] [address] [id number] [address] [place] [address], [place] [address] Jul, [facility] [address] [id number] [address] [place] [address], [place] [address] Jul, [facility] [address] [id number] [address] [place] [address], [place] [address] Jul, [facility] [address] [id number] [address] [place] [address], [place] [address] Jul, [facility] [address] [id number] [address] [place] [address], [place] [address] Jul, [facility] [address] [id number] [address] [place] [address], [place] [address] Jun, [facility] [address] [id number] [address] [place] [address], [place] [address] Jun, [facility] [address] [id number] [address] [place] [address], [place] [address] Jun, [facility] [address] [id number] [address] [place] [address], [place] [address] Jun, [facility] [address] [id number] [address] [place] [address], [place] [address] Jun, [facility] [address] [id number] [address] [place] [address], [place] [address] Jun, [facility] [address] [id number] [address] [place] [address], [place] [address] Jun, [facility] [address] [id number] [address] [place] [address], [place] [address] Jun, [facility] [address] [id number] [address] [place] [address], [place] [address] May, [facility] [address] [id number] [address] [place] [address] May, [facility] [address] [id number] [address] [place] [address], [place] [address] May, [facility] [address] [id number] [address] [place] [address], [place] [address] May, [facility] [address] [id number] [address] [place] [address], [place] [address] May, [facility] [address] [id number] [address] [place] [address], [place] [address] May, [facility] [address] [id number] [address] [place] [address], [place] [address] May, [facility] [address] [id number] [address] [place] [address], [place] [address] May, [facility] [address] [id number] [address] [place] [address], [place] [address] Apr, [facility] [address] [id number] [address] [place] [address], [place] [address] Apr, [facility] [address] [id number] [address] [place] [address], [place] [address] Apr, [facility] [place] [address] [id number] [address] [place] [address], [place] [address] Apr, [facility] [address] [id number] [address] [place] [address], [place] [address] Mar, [facility] [address] [id number] [address] [place] [address], [place] [address] Mar, [facility] [address] [id number] [address] [place] [address], [place] [address] Mar, [facility] [address] [id number] [address] [place] [address], [place] [address] Feb, [facility] [address] [id number] [address] [place] [address], [place] [address] Feb, [facility] [address] [id number] [address] [place] [address], [place] [address] Feb, [facility] [address] [id number] [address] [place] [address], [place] [address] Feb, [facility] [address] [id number] [address] [place] [address], [place] [address] Feb, [facility] [address] [id number] [address] [place] [address], [place] [address] Feb, [facility] [address] [id number] [address] [place] [address], [place] [address] Jan, [facility] [address] [id number] [address] [place] [address], [place] [address] Jan, [facility] [address] [id number] [address] [place] [address], [place] [address] Jan, [facility] [address] [id number] [address] [place] [address] Jan, [facility] [address] [id number] [address] [place] [address], [place] [address] Jan, [facility] [address] [id number] [address] [place] [address] Jan, [facility] [address] [id number] [address] [place] [address] Jan, [facility] [address] [id number] [address] [place] [address] 25 Dec, 2012 [facility] [address] [id number] [address] [place] [address], [place] [address] 16 Sep2012 [facility] [address] [id number] [address] [place] [address] 10 Sep2012 [facility] [address] [id number] [address] [place] [address] 05 Sep2012 [facility] [address] [id number] [address] [place] [address] Nov, [facility] [address] [id number] [address] [place] [address], [place] [address] Nov, [facility] [address] [id number] [address] [place] [address], [place] [address] Nov, [facility] [address] [id number] [address] [place] [address], [place] [address] Nov, [facility] [address] [id number] [address] [place] [address], [place] [address] Nov, [facility] [address] [id number] [address] [place] [address], [place] [address] Nov, [facility] [address] [id number] [address] [place] [address], [place] [address] Nov, [facility] [address] [id number] [address] [place] [address], [place] [address] Oct, [facility] [address] [id number] [address] [place] [address], [place] [address] Oct, [facility] [place] [address] [id number] [address] [place] [address], [place] [address] Oct, [facility] [address] [id number] [address] [place] [address], [place] [address] Oct, [facility] [address] [id number] [address] [place] [address], [place] [address] Oct, [facility] [address] [id number] [address] [place] [address], [place] [address] Oct, [facility] [address] [id number] [address] [place] [address], [place] [address] Oct, [facility] [address] [id number] [address] [place] [address], [place] [address] Oct, [facility] [address] [id number] [address] [place] [address], [place] [address] Sep, [facility] [address] [id number] [id number] August, [facility] [place] [address] [id number] [address] [place] [address], [place] [address] August, [facility] [address] [id number] [address] [place] [address], [place] [address] Jul, [facility] [address] [id number] [address] [place] [address], [place] [address] Jul, [facility] [place] [address] [id number] [address] [place] [address], [place] [address] Jul, [facility] [place] [address] [id number] [address] [place] [address], [place] [address] Jul, [facility] [address] [id number] [address] [place] [address], [place] [address] Jul, [facility] [place] [address] [id number] [address] [place] [address], [place] [address] 17 Jul, 2012 [facility] [place] [address] [id number] [address] [place] [address], [place] [address] 16 Jul, 2012 [facility] [address] [id number] [address] [place] [address], [place] [address] Jun, [facility] [address] [id number] [address] [place] [address], [place] [address] Jun, [facility] [place] [address] [id number] [address] [place] [address], [place] [address] Jun, [facility] [address] [id number] [address] [place] [address], [place] [address] Jun, [facility] [address] [id number] [address] [place] [address], [place] [address] Jun, [facility] [address] [id number] [address] [place] [address], [place] [address] May, [facility] [address] [id number] [place] [address] 18 May, 2012 [facility] [address] [id number] [address] [place] [address], [place] [address] 04 May, 2012 [facility] [address] [id number] [address] [place] [address], [place] [address] 15 Apr, 2012 [facility] [address] [id number] [address] [place] [address], [place] [address] 14 Apr, 2012 [facility] [address] [id number] [address] [place] [address], [place] [address] 07 Apr, 2012 [facility] [address] [id number] [address] [place] [address], [place] [address] Mar, [facility] [address] [id number] [address] [place] [address], [place] [address] 31 Mar, 2012 [facility] [address] [id number] [address] [place] [address], [place] [address] Mar, [facility] [address] [id number] [address] [place] [address], [place] [address] Mar, [facility] [address] [id number] [address] [place] [address], [place] [address] Mar, [facility] [address] [id number] [address] [place] [address], [place] [address] Mar, [facility] [address] [id number] [address] [place] [address], [place] [address] Feb, [facility] [address] [id number] [address] [place] [address] Feb, [facility] [address] [id number] [address] [place] [address], [place] [address] Jan, [facility] [address] [id number] [address] [place] [address], [place] [address] Jan, [facility] [address] [id number] [address] [place] [address], [place] [address] 25 Dec, 2011 [facility] [address] [id number] [address] [place] [address], [place] [address] Nov, [facility] [place] [address] [id number] [address] [place] [address], [place] [address] Nov, [facility] [address] [id number] [address] [place] [address], [place] [address] Nov, [facility] [place] [address] [id number] [address] [place] [address], [place] [address] Nov, [facility] [address] [id number] [address] [place] [address], [place] [address] Oct, [facility] [address] [id number] [address] [place] [address], [place] [address] Oct, [facility] [place] [address] [id number] [address] [place] [address], [place] [address] Oct, [facility] [place] [address] [id number] [address] [place] [address], [place] [address] Sep, [facility] [place] [address] [id number] [address] [place] [address], [place] [address] Sep, [facility] [place] [address] [id number] [address] [place] [address], [place] [address] Sep, [facility] [address] [id number] [address] [place] [address], [place] [address] August, [facility] [place] [address] [id number] [address] [place] [address], [place] [address] August, [facility] [address] [id number] [address] [place] [address], [place] [address] Jul, [facility] [address] [id number] [address] [place] [address], [place] [address] 24 Jul, 2011 [facility] [address] [id number] [address] [place] [address], [place] [address] Jul, [facility] [address] [id number] [address] [place] [address], [place] [address] Jul, [facility] [address] [id number] [address] [place] [address], [place] [address] Jun, [facility] [address] [id number] [address] [place] [address], [place] [address] May, [facility] [address] [id number] [address] [place] [address], [place] [address] Apr, [facility] [address] [id number] [address] [place] [address], [place] [address] Apr, [facility] [address] [id number] [address] [place] [address], [place] [address] Apr, [facility] [address] [id number] [address] [place] [address], [place] [address] Apr, [facility] [address] [id number] [address] [place] [address], [place] [address] Apr, [facility] [address] [id number] [address] [place] [address], [place] [address] Apr, [facility] [address] [id number] [address] [place] [address], [place] [address] Mar, [facility] [address] [id number] [address] [place] [address], [place] [address] Mar, [facility] [address] [id number] [address] [place] [address], [place] [address] Feb, [facility] [address] [id number] [address] [place] [address] Feb, [facility] [address] [id number] [address] [place] [address], [place] [address] Feb, [facility] [address] [id number] [address] [place] [address], [place] [address] 09 Feb, 2011 [facility] [address] [id number] [address] [place] [address], [place] [address] Jan, [facility] [address] [id number] [address] [place] [address], [place] [address] 18 Jan, 2011 [facility] [address] [id number] [address] [place] [address], [place] [address] 18 Jan, 2011 [facility] [address] [id number] [address] [place] [address], [place] [address] 18 Jan, 2011 [facility] [address] [id number] [address] [place] [address], [place] [address] 17 Nov, 2010 [facility] [address] [id number] [address] [place] [address], [place] [address] 03 Mar, 2010 [facility] [address] [id number] [address] [place] [address], [place] [address] Mar, [facility] [address] [id number] [address] [place] [address], [place] [address] 30 Feb, 2010 [facility] [address] [id number] [address] [place] [address], [place] [address] 15 Feb, 2010 [facility] [address] [id number] [address] [place] [address], [place] [address] Jan, [facility] [address] [id number] [address] [place] [address], [place] [address] Jan, [facility] [address] [id number] [address] [place] [address], [place] [address] Sep, [facility] [address] [id number] [address] [place] [address], [place] [id number] 16 May, 2009 [facility] [address] [id number] [address] [place] [address], [place] [id number] Apr, [facility] [address] [id number] [address] [place] [address], [place] [phone] Mar, [facility] [address] [id number] [address] [place] [address], [place] [id number] 15 Feb, 2009 [facility] [address] [id number] [address] [place] [phone] Feb, [facility] [address] [id number] [address] [place] [phone] Feb, [facility] [address] [id number] [address] [place] [id number] Jan, [facility] [address] [id number] [address] [place] [id number] Jan, [facility] [address] [facility] [id number] [address] [place] [phone] Jan, [facility] [address] [id number] [address] [place] [id number] Jan, [facility] [address] [facility] [id number] [address] [place] [id number] August, IMMUNIZATIONS No Known Immunizations SOCIAL HISTORY Never Assessed REASON FOR VISIT PLAN OF CARE VITAL SIGNS Height 65 in 2013-02-12 Weight 212.5 lbs 2013-02-12 Temperature 97.6 degrees Fahrenheit 2013-02-12 Heart Rate 76 bpm 2013-02-12 Respiratory Rate 18 2013-02-12 Blood pressure systolic 108 mmHg 2013-02-12 Blood pressure diastolic 70 mmHg 2013-02-12 MEDICATIONS Unknown Medications RESULTS No Results PROCEDURES Procedure Date Ordered Result Body Site GLYCATED HEMOGLOBIN TEST Feb 12, 2013 INSTRUCTIONS MEDICATIONS ADMINISTERED No Known Medications MEDICAL [...] age 6 Hospitalization History surgery Hospitalization History [facility], inmd tient treatment few times for BH
--- OUTSIDE RECORDS SUMMARY | 2019-09-29 10:29 | XMS REPORT ---
Author Author Cameron [facility] Address [address] [place] [address] Care Team Providers Care Toll Testboard Worker Name Role Phone Taye JULISA Unavailable PROBLEMS Type Condition ICD9-CM Code FBN37-SL Code Onset Dates Condition S tatus SNOMED Code Problem Open-angle glaucoma of both eyes, unspecified glaucoma stage, unspecified open-angle glaucoma type H40.10X0 Acti ve 29397365 Problem Adjustment disorder, unspecified type F43.20 Active 45890274 Problem Obstructive sleep apnea G47.33 Active 04127303 Problem Hypertensive retinopathy of both eyes H35.033 Active 5618387 Problem Type 2 diabetes mellitus with complication E11.8 Active 11951052 Problem Essential hypertension I10 Active 87342470 Problem Depression F32.9 Active 17493346 Problem Intermittent explosive disorder F63.81 Active 71933971 Problem Intermittent explosive disorder in adult F63.81 Active 12991013 Problem Bipolar disorder, unspecified F31.9 Active 25525057 Problem Mild intellectual disability F70 A ctive 02602797 Problem Other specified urinary incontinence N39.498 Active 970498830 Problem Bipolar disorder, in partial remission, most rec ent episode manic F31.73 Active 78255780 Problem 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 Active 60888913 Problem Type 2 diabetes mellitus wit h diabetic neuropathy, unspecified whether long term care pharmacist insulin use E11.40 Active 432883 446122016 Problem Diabetes E11.9 Active 51533771 Problem Reactive airway disease, unspecified asthma justin rity, uncomplicated J45.909 Active 275110443986 Problem Reactive airway disease, mild intermittent, uncomplicated J45.20 Active 147587933 Problem Gastroesophageal reflux disease without esophagitis K21.9 Active 685292606 Problem Other diabetic neurological complication associated with type 2 diabetes mellitus E11.49 Active 834717951 Problem Neuropathy G62.9 Active 652781752 ALLERGIES No Information ENCOUNTERS Encounter Location Date Diagnosis [facility] [address] [facility] [id number] [address] [place] [phone] Oct, [facility] [address] [facility] [id number] [address] [place] [phone] August, [facility] [address] [facility] [id number] [address] [place] [phone] Jul, Type 2 diabetes mellitus wit h diabetic neuropathy, unspecified whether halfway insulin use E11.40 and Colon cancer screening Z12.11 [facility] [address] [facility] [id number] [address] [place] [phone] 10 Jul, 2019 Type 2 diabetes mellitus wit h diabetic neuropathy, unspecified whether halfway insulin use E11.40 and Tinea pedis, unspecified laterality B35.3 [facility] [address] [place] [id number] [address] [place] [id number] 10 Jun, 2019 [facility] [address] [facility] [id number] [address] [place] [phone] Jun, [facility] [address] [facility] [id number] [address] [place] [phone] 04 Jun, 2019 Dysuria R30.0 [facility] [address] [facility] [id number] [address] [place] [phone] 02 Jun, 2019 [facility] [address] [place] [id number] [address] [place] [phone] 20 May, 2019 Influenza J11.1 [facility] [address] [facility] [id number] [address] [place] [phone] 13 May, 2019 Intermittent explosive disor salvatore in adult F63.81 [facility] [address] [place] [id number] [address] [place] [phone] 12 May, 2019 [facility] [address] [facility] [id number] [address] [place] [phone] Apr, Intermittent explosive disor salvatore in adult F63.81 ; Bipolar disorder, unspecified F31.9 and Mild intellectual disability F70 OUTREACH [facility] [id number] [place] [phone] Apr, Oral health maintenance stat us requiring routine preventive dental care K08.9 [facility] [address] [id number] [address] [place] [id number] 20 Apr, 2019 Type 2 diabetes mellitus wit h complication E11.8 ; History of test for hearing Z92.89 ; Colon cancer screening Z12.11 ; Other specified urinary incontinence N39.498 and Impacted cerumen, right ear H61.21 [facility] [address] [id number] [address] [place] [id number] 10 Apr, 2019 Onychomycosis B35.1 ; Other diabetic neurological complication associated with type 2 diabetes mellitus E11.49 and Tinea pedis of both feet B35.3 [facility] [address] [id number] [address] [place] [phone] Feb, [facility] [address] [id number] [address] [place] [phone] Jan, [facility] [address] [id number] [address] [place] [id number] Jan, [facility] [address] [id number] [address] [place] [id number] Jan, [facility] [address] [id number] [address] [place] [phone] Jan, [facility] [address] [id number] [address] [place] [phone] Jan, [facility] [address] [id number] [address] [place] [phone] Jan, [facility] [address] [id number] [address] [place] [phone] Jan, [facility] [address] [facility] [id number] [address] [place] [phone] 07 Jan, 2019 Anemia D64.9 [facility]REACH [facility] [id number] [place] [phone] 04 Jan, 2019 Dental examination Z01.20 an d Oral health maintenance status requiring routine preventive dental care K08.9 [place] [id number] [facility] [id number] [address] [place] [phone] Jan, Onychomycosis B35.1 and Othe r diabetic neurological complication associated with type 2 diabetes mellitus E11.49 [place] [address] [facility] [id number] [address] [place] [phone] Jan, Anemia D64.9 [facility] [address] [facility] [id number] [address] [place] [phone] Jan, [place] [address] [place] [id number] [address] [place] [phone] Dec, Urinary tract infection with out hematuria, site unspecified N39.0 [place] [address] [place] [id number] [address] [place] [phone] Dec, Type 2 diabetes mellitus wit h complication E11.8 ; Urinary tract infection without hematuria, site unspecified N39.0 ; Impacted cerumen of both ears H61.23 ; Encounter for immunization Z23 and Hyponatremia E87.1 [place] [address] [facility] [id number] [address] [place] [phone] Dec, Intermittent explosive disor salvatore in adult F63.81 ; Dysuria R30.0 ; Type 2 diabetes mellitus with complication E11.8 ; Bipolar disorder, unspecified F31.9 and Mild intellectual disability F70 [place] [address] [facility] [id number] [address] [place] [phone] Dec, Dysuria R30.0 [place] [address] [place] [id number] [address] [place] [phone] Dec, Intermittent explosive disor salvatore in adult F63.81 ; Bipolar disorder, unspecified F31.9 and Mild intellectual disability F70 [place] [address] [place] [id number] [address] [place] [phone] Nov, [facility] [address] [facility] [id number] [address] [place] [phone] Oct, OUTREACH [facility] [id number] [place] [phone] Oct, Oral health maintenance stat us requiring routine preventive dental care K08.9 [facility] [address] [facility] [id number] [address] [place] [phone] August, Intermittent explosive disor salvatore in adult F63.81 ; Bipolar disorder, unspecified F31.9 and Mild intellectual disability F70 [facility] [address] [id number] [address] [place] [address] [phone] August, Dental caries K02.9 [facility] [address] [facility] [id number] [address] [place] [phone] Jul, Onychomycosis B35.1 ; Other diabetic neurological complication associated with type 2 diabetes mellitus E11.49 and Tinea pedis of both feet B35.3 [facility] [address] [id number] [address] [place] [address] [id number] Jul, Caries K02.9 [facility] [address] [facility] [id number] [address] [place] [phone] Jul, Type 2 diabetes mellitus wit h complication E11.8 ; Tobacco abuse Z72.0 and Bipolar disorder, unspecified F31.9 [facility] [address] [facility] [id number] [address] [place] [phone] Jun, [facility] [address] [facility] [id number] [address] [place] [address] [phone] Jun, Dental examination Z01.20 an d Oral health maintenance status requiring routine preventive dental care K08.9 [facility] [address] [facility] [id number] [address] [place] [phone] May, Bilateral impacted cerumen H 61.23 [facility] [address] [facility] [id number] [address] [place] [phone] Apr, Bipolar disorder, unspecifie d F31.9 ; Intermittent explosive disorder in adult F63.81 ; Type 2 diabetes mellitus with complication E11.8 ; Tobacco abuse Z72.0 and Colon cancer screening Z12.11 [facility] [address] [place] [id number] [address] [place] [id number] Apr, Onychomycosis B35.1 and Othe r diabetic neurological complication associated with type 2 diabetes mellitus E11.49 [facility] [address] [place] [id number] [address] [place] [phone] Apr, Intermittent explosive disor salvatore in adult F63.81 ; Bipolar disorder, unspecified F31.9 and Mild intellectual disability F70 [place] [address] [phone] Mar, Diabetes E11.9 [facility] [address] [place] [id number] [address] [place] [phone] Jan, Encounter for immunization Z 23 [facility] [address] [phone] Jan, Tinea pedis of both feet B35 .3 ; Other diabetic neurological complication associated with type 2 diabetes mellitus E11.49 and Onychomycosis B35.1 [facility] [address] [place] [id number] [address] [place] [phone] Nov, Type 2 diabetes mellitus wit h complication E11.8 [facility] [address] [place] [id number] [address] [place] [phone] Nov, [facility] [address] [place] [id number] [address] [place] [phone] Oct, Intermittent explosive disor salvatore in adult F63.81 ; Bipolar disorder, unspecified F31.9 and Mild intellectual disability F70 [facility] [id number] [place] [id number] Oct, [facility] [address] [place] [id number] [address] [place] [address] [id number] 11 Alexis, 2018 Dental examination Z01.20 [facility] [address] [facility] [id number] [address] [place] [phone] 06 Oct, 2017 Onychomycosis B35.1 and Othe r diabetic neurological complication associated with type 2 diabetes mellitus E11.49 [facility] [address] [place] [id number] [address] [place] [phone] 19 Sep, 2017 Type 2 diabetes mellitus wit h complication E11.8 and Colon cancer screening Z12.11 [facility] [address] [place] [id number] [address] [place] [phone] 18 Sep, 2017 Type 2 diabetes mellitus wit h complication E11.8 ; Colon cancer screening Z12.11 and Neuropathy G62.9 [place] [address] [place] [id number] [address] [place] [phone] August, Diabetes E11.9 [facility] [id number] [place] [address] [id number] Jul, Dental examination Z01.20 [facility] [address] [place] [id number] [address] [place] [phone] 27 May, 2017 Mild intellectual disability F70 [place] [address] [id number] 07 May, 2017 Mild intellectual disability F70 ; High risk medication use Z79.899 ; Intermittent explosive disorder in adult F63.81 and Bipolar disorder, unspecified F31.9 [place] [id number] [place] [phone] May, [place] [address] [place] [id number] [address] [place] [phone] May, [place] [address] [phone] Apr, Type 2 diabetes mellitus wit h complication E11.8 ; Mild intellectual disability F70 ; Gastroesophageal reflux disease without esophagitis K21.9 ; Reactive airway disease, mild intermittent, uncomplicated J45.20 and Tobacco abuse Z72.0 [place] [address] [place] [id number] [address] [place] [phone] Apr, High risk medication use Z79 .899 ; Mild intellectual disability F70 ; Intermittent explosive disorder in adult F63.81 and Bipolar disorder, unspecified F31.9 [facility] [address] [id number] [address] [place] [phone] Mar, Encounter for dental exam an d cleaning w/o abnormal findings Z01.20 [facility] [address] [id number] [address] [place] [address] [phone] Mar, Dental examination Z01.20 [facility] [address] [id number] [address] [place] [phone] 12 Jan, 2017 [facility] [address] [id number] [address] [place] [phone] Jan, [facility] [address] [id number] [address] [place] [phone] Jan, Mild intellectual disability F70 ; Bipolar disorder, unspecified F31.9 and Intermittent explosive disorder in adult F63.81 [facility] [address] [id number] [address] [place] [phone] Jan, Diabetes E11.9 [facility] [address] [id number] [address] [place] [address] [phone] Dec, Encounter for dental examina tion and cleaning without abnormal findings Z01.20 [facility] [address] [id number] [address] [place] [phone] Dec, Bipolar disorder, unspecifie d F31.9 ; Intermittent explosive disorder in adult F63.81 and Mild intellectual disability F70 [facility] [address] [id number] [address] [place] [phone] Nov, Diabetes E11.9 [facility] [address] [id number] [address] [place] [phone] Nov, [facility] [address] [id number] [address] [place] [id number] 14 Nov, 2016 Diabetes E11.9 and Colon can cer screening Z12.11 [facility] [address] [facility] [address] [id number] [id number] 21 Sep, 2016 Dental examination Z01.20 [facility] [address] [id number] [address] [place] [address] [id number] 21 Sep, 2016 Encounter for dental examina tion and cleaning without abnormal findings Z01.20 [facility] [address] [id number] [address] [place] [phone] 13 Sep, 2016 Bipolar disorder, unspecifie d F31.9 [facility] [address] [id number] [address] [place] [phone] 12 Sep, 2016 Bipolar disorder, unspecifie d F31.9 [facility] [address] [facility] [id number] [address] [place] [phone] Jul, [facility] [address] [facility] [id number] [address] [place] [phone] Jul, Type 2 diabetes mellitus wit h complication E11.8 [facility] [address] [id number] [address] [place] [address] [id number] 15 Jun, 2016 Encounter for dental examina tion and cleaning without abnormal findings Z01.[address] [id number] [id number] 15 Jun, 2016 Dental examination Z01.20 [facility] [address] [facility] [id number] [address] [place] [phone] 18 Apr, 2016 Sports physical Z02.5 [facility] [address] [facility] [id number] [address] [place] [phone] 14 Mar, 2016 Bipolar disorder, in partial remission, most recent episode manic F31.73 and Intermittent explosive disorder in adult F63.81 [facility] [address] [id number] [address] [place] [phone] 08 Mar, 2016 [facility] [address] [facility] [id number] [address] [place] [phone] Mar, Diabetes E11.9 [facility] [address] [id number] [address] [place] [address] [id number] Feb, Encounter for dental examina tion and cleaning without abnormal findings Z01.20 [facility] [address] [id number] [address] [place] [id number] 22 Dec, 2015 Nocturnal hypoxemia G47.34 a nd Encounter for immunization Z23 [facility] [address] [id number] [address] [place] [id number] 15 Dec, 2015 [facility] [address] [id number] [address] [place] [phone] Dec, [facility] [address] [facility] [id number] [address] [place] [phone] Dec, Bipolar disorder, unspecifie d F31.9 [facility] [address] [facility] [id number] [place] [address] [id number] Oct, Encounter for dental examina tion and cleaning without abnormal findings Z01.[id number] [place] [address] [phone] Oct, Dental examination Z01.20 [facility] [address] [facility] [id number] [address] [place] [phone] Oct, Diabetes E11.9 [facility] [address] [facility] [id number] [address] [place] [id number] Oct, Diabetes E11.9 ; Reactive ai rway disease, mild intermittent, uncomplicated J45.20 and Tobacco abuse Z72.0 [facility] [address] [facility] [id number] [address] [place] [phone] Sep, Bipolar disorder, unspecifie d F31.9 and Depression F32.9 [facility] [address] [facility] [id number] [address] [place] [phone] Sep, [facility] [address] [facility] [id number] [address] [place] [id number] August, Tinea pedis of both feet B35 .3 and DM w/o complication type II, uncontrolled E11.65 [place] [address] [address] Jul, [place] [address] [address] Jul, [place] [address] [id number] Jul, Obstructive sleep apnea G47. 33 [place] [address] [phone] Jun, Diabetes E11.9 [place] [address] [address] Jun, [place] [address] [id number] Jun, [place] [address] [phone] Jun, Bipolar disorder, unspecifie d F31.9 and Mental retardation F79 [place] [address] [address] Apr, [place] [address] [address] Feb, Diabetes E11.9 ; Encounter f or immunization Z23 ; Cough R05 and Nicotine abuse Z72.0 [place] [address] [id number] Jan, Bipolar disorder, unspecifie d F31.9 and Diabetes mellitus without mention of complication, type II or unspecified type, uncontrolled 250.02 [place] [address] [address] Jan, [place] [address] [phone] Dec, Reactive airway disease 493. 90 and Enuresis 788.30 [facility] [address] [facility] [id number] [address] [place] [phone] Dec, [facility] [address] [facility] [id number] [address] [place] [phone] Nov, [facility] [address] [facility] [id number] [address] [place] [phone] Nov, [facility] [address] [facility] [id number] [place] [phone] Nov, Annual physical exam V70.0 ; Urinary incontinence 788.30 ; Diabetes 250.00 and Hypertension 401.9 [facility] [address] [place] [id number] [place] [phone] Oct, Diabetes mellitus without me ntion of complication, type II or unspecified type, uncontrolled 250.02 [facility] [address] [address] Oct, Diabetes mellitus without me ntion of complication, type II or unspecified type, uncontrolled 250.02 [facility] [address] [place] [id number] [address] [place] [id number] Oct, Diabetes mellitus without me ntion of complication, type II or unspecified type, uncontrolled 250.02 [facility] [address] [place] [id number] [address] [place] [phone] Oct, [facility] [address] [place] [id number] [address] [place] [phone] Oct, [facility] [address] [facility] [id number] [address] [place] [id number] Oct, Bipolar disorder, unspecifie d 296.80 [facility] [address] [id number] [address] [place] [address] [id number] Sep, Dental examination V72.2 [facility] [address] [facility] [id number] [address] [place] [id number] August, [facility] [id number] [place] [id number] August, Dental examination V72.2 [facility] [address] [id number] [address] [place] [id number] August, [facility] [address] [id number] [address] [place] [id number] Jul, 2014 [facility] [address] [id number] [address] [place] [id number] Jul, [facility] [address] [id number] [address] [place] [id number] 17 Jun, 2014 [facility] [address] [id number] [address] [place] [address] [address] Jun, [facility] [address] [id number] [address] [place] [phone] Jun, [facility] [address] [id number] [address] [place] [id number] Jun, [facility] [address] [id number] [address] [place] [id number] May, [facility] [address] [id number] [address] [place] [id number] 23 May, 2014 [facility] [address] [id number] [address] [place] [id number] 16 May, 2014 [facility] [address] [id number] [address] [place] [id number] May, 2014 [facility] [address] [id number] [address] [place] [id number] May, [facility] [address] [id number] [address] [place] [id number] 16 May, 2014 [facility] [address] [id number] [address] [place] [id number] 16 May, 2014 [facility] [address] [id number] [address] [place] [id number] May, 2014 [facility] [address] [id number] [address] [place] [address], [place] [address] May, 2014 [facility] [address] [id number] [address] [place] [address], [place] [address] May, 2014 [facility] [address] [id number] [address] [place] [address], [place] [address] May, 2014 [facility] [address] [id number] [address] [place] [address], [place] [address] May, 2014 [facility] [address] [id number] [address] [place] [address], [place] [address] May, 2014 [facility] [address] [id number] [address] [place] [address], [place] [address] May, 2014 [facility] [address] [id number] [address] [place] [address], [place] [address] May, [facility] [address] [id number] [address] [place] [address], [place] [address] Apr, [facility] [address] [id number] [address] [place] [address], [place] [address] Apr, [facility] [address] [id number] [address] [place] [address], [place] [address] Apr, [facility] [address] [id number] [address] [place] [address], [place] [address] Apr, [facility] [address] [id number] [address] [place] [id number] Apr, [facility] [address] [id number] [address] [place] [address], [place] [address] Apr, [facility] [address] [id number] [address] [place] [address], [place] [address] Apr, [facility] [address] [id number] [address] [place] [id number] Apr, [facility] [address] [id number] [address] [place] [address], [place] [address] Apr, [facility] [address] [id number] [address] [place] [address], [place] [address] Apr, [facility] [address] [id number] [address] [place] [address], [place] [address] Apr, [facility] [address] [id number] [address] [place] [address], [place] [address] Apr, [facility] [address] [id number] [address] [place] [address], [place] [address] Mar, [facility] [address] [id number] [address] [place] [address], [place] [address] Mar, [facility] [address] [id number] [address] [place] [address], [place] [address] Mar, [facility] [address] [id number] [address] [place] [address], [place] [address] Mar, [facility] [address] [id number] [address] [place] [address], [place] [address] Mar, [facility] [address] [id number] [address] [place] [address], [place] [address] Mar, [facility] [address] [id number] [address] [place] [address], [place] [address] Feb, [facility] [address] [id number] [address] [place] [address], [place] [address] Feb, [facility] [address] [id number] [address] [place] [address], [place] [address] Feb, [facility] [address] [id number] [address] [place] [address], [place] [address] Feb, [facility] [address] [id number] [address] [place] [address], [place] [address] 14 Jan, 2014 [facility] [address] [id number] [address] [place] [address], [place] [address] 14 Jan, 2014 [facility] [address] [id number] [address] [place] [address], [place] [address] 14 Jan, 2014 [facility] [address] [id number] [address] [place] [address], [place] [address] Jan, [facility] [address] [id number] [address] [place] [address], [place] [address] Dec, [facility] [address] [id number] [address] [place] [address], [place] [address] Dec, [facility] [address] [id number] [address] [place] [address], [place] [address] Dec, [facility] [address] [id number] [address] [place] [address], [place] [address] Dec, [facility] [address] [id number] [address] [place] [address], [place] [address] Nov, [facility] [address] [id number] [address] [place] [address], [place] [address] Nov, [facility] [address] [id number] [address] [place] [address], [place] [address] Nov, [facility] [address] [id number] [address] [place] [address], [place] [address] Nov, [facility] [address] [id number] [address] [place] [address], [place] [address] Nov, [facility] [address] [id number] [address] [place] [address], [place] [address] Nov, [facility] [address] [id number] [address] [place] [address], [place] [address] Nov, [facility] [address] [id number] [address] [place] [address], [place] [address] Oct, [facility] [address] [id number] [address] [place] [address], [place] [address] Oct, [facility] [address] [id number] [facility] [address] Oct, [facility] [address] [id number] [facility] [address] Oct, [facility] [address] [id number] [address] [place] [address], [place] [address] Oct, [facility] [address] [id number] [address] [place] [address], [place] [address] Oct, [facility] [address] [id number] [address] [place] [address], [place] [address] Oct, [facility] [address] [id number] [address] [place] [address], [place] [address] Sep, [facility] [address] [id number] [address] [place] [address], [place] [address] Sep, [facility] [address] [id number] [address] [place] [address], [place] [address] Sep, [facility] [address] [id number] [address] [place] [address], [place] [address] Sep, [facility] [address] [id number] [address] [place] [address], [place] [address] Sep, [facility] [address] [id number] [address] [place] [address], [place] [address] Jul, [facility] [address] [id number] [address] [place] [address], [place] [address] Jul, [facility] [address] [id number] [address] [place] [address], [place] [address] Jul, [facility] [address] [id number] [address] [place] [address], [place] [address] Jul, [facility] [address] [id number] [address] [place] [address], [place] [address] Jul, [facility] [address] [id number] [address] [place] [address], [place] [address] Jul, [facility] [address] [id number] [facility] [address] Jul, [facility] [address] [id number] [facility] [address] Jul, [facility] [address] [id number] [facility] [address] Jul, [facility] [address] [id number] [address] [place] [address], [place] [address] Jul, [facility] [address] [id number] [address] [place] [address], [place] [address] Jul, [facility] [address] [id number] [address] [place] [address], [place] [address] Jul, [facility] [address] [id number] [address] [place] [address], [place] [address] Jun, [facility] [address] [id number] [address] [place] [address], [place] [address] Jun, [facility] [address] [id number] [address] [place] [address], [place] [address] Jun, [facility] [address] [id number] [address] [place] [address], [place] [address] Jun, [facility] [address] [id number] [address] [place] [address], [place] [address] Jun, [facility] [address] [id number] [address] [place] [address], [place] [address] Jun, [facility] [address] [id number] [address] [place] [address], [place] [address] Jun, [facility] [address] [id number] [address] [place] [address], [place] [address] Jun, [facility] [address] [id number] [address] [place] [address], [place] [address] May, [facility] [address] [id number] [address] [place] [address], [place] [address] May, [facility] [address] [id number] [address] [place] [address], [place] [address] May, [facility] [address] [id number] [address] [place] [address], [place] [address] May, [facility] [address] [id number] [address] [place] [address], [place] [address] May, [facility] [address] [id number] [address] [place] [address], [place] [address] May, [facility] [address] [id number] [address] [place] [address], [place] [address] May, [facility] [address] [id number] [address] [place] [address], [place] [address] May, [facility] [address] [id number] [address] [place] [address], [place] [address] Apr, [facility] [address] [id number] [address] [place] [address], [place] [address] Apr, [facility] [address] [id number] [address] [place] [address], [place] [address] Apr, [facility] [address] [id number] [address] [place] [address], [place] [address] Apr, [facility] [address] [id number] [address] [place] [address], [place] [address] Mar, [facility] [address] [id number] [address] [place] [address], [place] [address] Mar, [facility] [address] [id number] [address] [place] [address], [place] [address] Mar, [facility] [address] [id number] [address] [place] [address], [place] [address] Feb, [facility] [address] [id number] [address] [place] [address], [place] [address] Feb, [facility] [address] [id number] [address] [place] [address], [place] [address] Feb, [facility] [address] [id number] [address] [place] [address], [place] [address] Feb, [facility] [address] [id number] [address] [place] [address], [place] [address] Feb, [facility] [address] [id number] [address] [place] [address], [place] [address] Feb, [facility] [address] [id number] [address] [place] [address], [place] [address] Jan, [facility] [address] [id number] [address] [place] [address], [place] [address] Jan, [facility] [address] [id number] [address] [place] [address], [place] [address] Jan, [facility] [address] [id number] [address] [place] [address], [place] [address] Jan, [facility] [address] [id number] [address] [place] [address], [place] [address] Jan, [facility] [address] [id number] [address] [place] [address], [place] [address] Jan, [facility] [address] [id number] [address] [place] [address], [place] [address] Jan, [facility] [address] [id number] [address] [place] [address], [place] [address] 25 Dec, 2012 [facility] [address] [id number] [address] [place] [address] [address] 16 Sep2012 [facility] [address] [id number] [address] [place] [address], [place] [address] 10 Sep2012 [facility] [address] [id number] [address] [place] [address], [place] [address] 05 Sep2012 [facility] [address] [id number] [address] [place] [address] [place] [address] Nov, [facility] [address] [id number] [address] [place] [address], [place] [address] Nov, [facility] [address] [id number] [address] [place] [address], [place] [address] Nov, [facility] [address] [id number] [address] [place] [address], [place] [address] Nov, [facility] [address] [id number] [address] [place] [address], [place] [address] Nov, [facility] [address] [id number] [address] [place] [address], [place] [address] Nov, [facility] [address] [id number] [address] [place] [address], [place] [address] Nov, [facility] [address] [id number] [address] [place] [address], [place] [address] Oct, [facility] [address] [id number] [address] [place] [address], [place] [address] Oct, [facility] [address] [id number] [address] [place] [address], [place] [address] Oct, [facility] [address] [id number] [address] [place] [address], [place] [address] Oct, [facility] [address] [id number] [address] [place] [address], [place] [address] Oct, [facility] [address] [id number] [address] [place] [address], [place] [address] Oct, [facility] [address] [id number] [address] [place] [address], [place] [address] Oct, [facility] [address] [id number] [address] [place] [address], [place] [address] Oct, [facility] [address] [id number] [address] [place] [address], [place] [address] Sep, Suleiman PEREZ [address] [id number] [id number] August, [facility] [address] [id number] [address] [place] [address], [place] [address] August, [facility] [address] [id number] [address] [place] [address], [place] [address] Jul, [facility] [address] [id number] [address] [place] [address], [place] [address] Jul, [facility] [address] [id number] [address] [place] [address], [place] [address] Jul, [facility] [address] [id number] [address] [place] [address], [place] [address] Jul, [facility] [address] [id number] [address] [place] [address], [place] [address] Jul, [facility] [address] [id number] [address] [place] [address], [place] [address] Jul, [facility] [address] [id number] [address] [place] [address], [place] [address] Jul, [facility] [address] [id number] [address] [place] [address], [place] [address] Jun, [facility] [address] [id number] [address] [place] [address], [place] [address] Jun, [facility] [address] [id number] [address] [place] [address], [place] [address] Jun, [facility] [address] [id number] [address] [place] [address], [place] [address] Jun, [facility] [address] [id number] [address] [place] [address], [place] [address] Jun, [facility] [address] [id number] [address] [place] [address] May, [facility] [address] [id number] [address] [place] [id number] 18 May, 2012 [facility] [address] [id number] [address] [place] [address], [place] [address] 04 May, 2012 [facility] [address] [id number] [address] [place] [address], [place] [address] 15 Apr, 2012 [facility] [address] [id number] [address] [place] [address], [place] [address] 14 Apr, 2012 [facility] [address] [id number] [address] [place] [address], [place] [address] 07 Apr, 2012 [facility] [address] [id number] [address] [place] [address], [place] [address] Mar, [facility] [address] [id number] [address] [place] [address], [place] [address] Mar, [facility] [address] [id number] [address] [place] [address], [place] [address] Mar, [facility] [address] [id number] [address] [place] [address], [place] [address] Mar, [facility] [address] [id number] [address] [place] [address], [place] [address] Mar, [facility] [address] [id number] [address] [place] [address], [place] [address] Mar, [facility] [address] [id number] [address] [place] [address], [place] [address] Feb, [facility] [address] [id number] [address] [place] [id number] Feb, [facility] [address] [id number] [address] [place] [address], [place] [address] Jan, [facility] [address] [id number] [address] [place] [address], [place] [address] Jan, [facility] [address] [id number] [address] [place] [address], [place] [address] 25 Dec, 2011 [facility] [address] [id number] [facility] [place] [address] Nov, [facility] [address] [id number] [address] [place] [address], [place] [address] Nov, [facility] [address] [id number] [address] [place] [address], [place] [address] Nov, [facility] [address] [id number] [address] [place] [address], [place] [address] Nov, [facility] [address] [id number] [address] [place] [address], [place] [address] Oct, [facility] [address] [id number] [address] [place] [address], [place] [address] Oct, [facility] [address] [id number] [address] [place] [address], [place] [address] Oct, [facility] [address] [id number] [address] [place] [address], [place] [address] Sep, [facility] [address] [id number] [address] [place] [address], [place] [address] Sep, [facility] [address] [id number] [address] [place] [address], [place] [address] Sep, [facility] [address] [id number] [address] [place] [address], [place] [address] August, [facility] [address] [id number] [address] [place] [address], [place] [address] August, [facility] [address] [id number] [address] [place] [address], [place] [address] Jul, [facility] [address] [id number] [address] [place] [address], [place] [address] Jul, [facility] [address] [id number] [address] [place] [address], [place] [address] Jul, [facility] [address] [id number] [address] [place] [address], [place] [address] Jul, [facility] [address] [id number] [address] [place] [address], [place] [address] Jun, [facility] [address] [id number] [address] [place] [address], [place] [address] May, [facility] [address] [id number] [address] [place] [address], [place] [address] Apr, [facility] [address] [id number] [address] [place] [address], [place] [address] Apr, [facility] [address] [id number] [address] [place] [address], [place] [address] Apr, [facility] [address] [id number] [address] [place] [address], [place] [address] Apr, [facility] [address] [id number] [address] [place] [address], [place] [address] Apr, [facility] [address] [id number] [address] [place] [address], [place] [address] Apr, [facility] [address] [id number] [address] [place] [address], [place] [address] Mar, [facility] [address] [id number] [address] [place] [address], [place] [address] Mar, [facility] [address] [id number] [address] [place] [address], [place] [address] Feb, [facility] [address] [id number] [address] [place] [address], [place] [address] Feb, [facility] [address] [id number] [address] [place] [address], [place] [address] Feb, [facility] [address] [id number] [address] [place] [address], [place] [address] 09 Feb, 2011 [facility] [address] [id number] [address] [place] [address], [place] [address] Jan, [facility] [address] [id number] [address] [place] [address], [place] [address] 18 Jan, 2011 [facility] [address] [id number] [address] [place] [address], [place] [address] 18 Jan, 2011 [facility] [address] [id number] [address] [place] [address], [place] [address] 18 Jan, 2011 [facility] [address] [id number] [address] [place] [address], [place] [address] 17 Nov, 2010 [facility] [address] [id number] [address] [place] [address], [place] [address] Mar, [facility] [address] [id number] [address] [place] [address], [place] [address] Mar, [facility] [address] [id number] [address] [place] [address], [place] [address] Feb, [facility] [address] [id number] [address] [place] [address], [place] [address] 15 Feb, 2010 [facility] [address] [id number] [address] [place] [address], [place] [address] Jan, [facility] [address] [id number] [address] [place] [address], [place] [address] Jan, [facility] [address] [id number] [address] [place] [address], [place] [address] Sep, [facility] [address] [id number] 53 [place] [address], [place] [id number] 16 May, 2009 [facility] [address] [id number] [address] [place] [address], [place] [id number] Apr, [facility] [address] [id number] [address] [place] [address], [place] [id number] Mar, [facility] [address] [id number] [address] [place] [address], [place] [id number] 15 Feb, 2009 [facility] [address] [id number] [address] [place] [address], [place] [phone] Feb, [facility] [address] [facility] [id number] [address] [place] [phone] Feb, [facility] [address] [facility] [id number] [address] [place] [id number] 22 Jan, 2009 [facility] [address] [facility] [id number] [address] [place] [id number] Jan, [facility] [address] [facility] [id number] [address] [place] [id number] Jan, [facility] [address] [facility] [id number] [address] [place] [phone] Jan, [facility] [address] [facility] [id number] [address] [place] [id number] August, IMMUNIZATIONS No Known Immunizations SOCIAL HISTORY [...] age 6 Hospitalization History surgery Hospitalization History [facility], inaz tie treatment few times for BH
--- OUTSIDE RECORDS SUMMARY | 2019-09-29 10:29 | XMS REPORT ---
Author Author Cameron ALANIZ [facility] Address [address] [place] [address] Care Team Providers Care Gang Knife Fish Chopper Name Role Phone JEET ALANIZ Unavailable PROBLEMS Type Condition ICD9-CM Code [id number] Code Onset Dates Condition S tatus SNOMED Code Problem Open-angle glaucoma of both eyes, unspecified glaucoma stage, unspecified open-angle glaucoma type H40.10X0 Acti ve 13469299 Problem Adjustment disorder, unspecified type F43.20 Active 06129105 Problem Obstructive sleep apnea G47.33 Active 17130716 Problem Hypertensive retinopathy of both eyes H35.033 Active 6106974 Problem Type 2 diabetes mellitus with complication E11.8 Active 17637906 Problem Essential hypertension I10 Active 01049018 Problem Depression F32.9 Active 33054075 Problem Intermittent explosive disorder F63.81 Active 25565856 Problem Intermittent explosive disorder in adult F63.81 Active 18690473 Problem Bipolar disorder, unspecified F31.9 Active 70556935 Problem Mild intellectual disability F70 A ctive 52462959 Problem Other specified urinary incontinence N39.498 Active 926526285 Problem Bipolar disorder, in partial remission, most rec ent episode manic F31.73 Active 93641040 Problem 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 Active 66435070 Problem Type 2 diabetes mellitus wit h diabetic neuropathy, unspecified whether long term care phlebotomist insulin use E11.40 Active 152544 819834022 Problem Diabetes E11.9 Active 09851889 Problem Reactive airway disease, unspecified asthma justin rity, uncomplicated J45.909 Active 622283064912 Problem Reactive airway disease, mild intermittent, uncomplicated J45.20 Active 305143306 Problem Gastroesophageal reflux disease without esophagitis K21.9 Active 225386991 Problem Other diabetic neurological complication associated with type 2 diabetes mellitus E11.49 Active 077016270 Problem Neuropathy G62.9 Active [id number] ALLERGIES No Information ENCOUNTERS Encounter Location Date Diagnosis [facility] [address] [facility] [id number] [address] [place] [id number] Oct, [facility] [address] [facility] [id number] [address] [place] [phone] August, [facility] [address] [facility] [id number] [address] [place] [address] Jul, Type 2 diabetes mellitus wit h diabetic neuropathy, unspecified whether half-way insulin use E11.40 and Colon cancer screening Z12.11 [facility] [address] [facility] [id number] [address] [place] [address] 10 Jul, 2019 Type 2 diabetes mellitus wit h diabetic neuropathy, unspecified whether half-way insulin use E11.40 and Tinea pedis, unspecified laterality B35.3 [facility] [address] [facility] [id number] [address] [place] [phone] 10 Jun, 2019 [facility] [address] [facility] [id number] [address] [place] [phone] Jun, [facility] [address] [facility] [id number] [address] [place] [id number] 04 Jun, 2019 Dysuria R30.0 [facility] [address] [facility] [id number] [address] [place] [address] 02 Jun, 2019 [facility] [address] [facility] [id number] [address] [place] [id number] 20 May, 2019 Influenza J11.1 [facility] [address] [place] [id number] [address] [place] [id number] 13 May, 2019 Intermittent explosive disor salvatore in adult F63.81 [facility] [address] [facility] [id number] [address] [place] [phone] 12 May, 2019 [facility] [address] [facility] [id number] [address] [place] [address] Apr, Intermittent explosive disor salvatore in adult F63.81 ; Bipolar disorder, unspecified F31.9 and Mild intellectual disability F70 [facility] [id number] [place] [address] Apr, Oral health maintenance stat us requiring routine preventive dental care K08.9 [facility] [address] [id number] [address] [place] [address] 20 Apr, 2019 Type 2 diabetes mellitus wit h complication E11.8 ; History of test for hearing Z92.89 ; Colon cancer screening Z12.11 ; Other specified urinary incontinence N39.498 and Impacted cerumen, right ear H61.21 [facility] [address] [id number] [address] [place] [address] Apr, Onychomycosis B35.1 ; Other diabetic neurological complication associated with type 2 diabetes mellitus E11.49 and Tinea pedis of both feet B35.3 [facility] [address] [id number] [address] [place] [id number] Feb, [facility] [address] [id number] [address] [place] [address] Jan, [facility] [address] [id number] [address] [place] [address] Jan, [facility] [address] [id number] [address] [place] [phone] Jan, [facility] [address] [id number] [address] [place] [phone] Jan, [facility] [address] [id number] [address] [place] [phone] Jan, [facility] [address] [id number] [address] [place] [phone] Jan, [facility] [address] [id number] [address] [place] [address] Jan, [facility] [address] [id number] [address] [place] [address] Jan, Anemia D64.9 [facility] [id number] [place] [phone] 04 Jan, 2019 Dental examination Z01.20 an d Oral health maintenance status requiring routine preventive dental care K08.9 [place] [address] [place] [id number] [address] [place] [address] Jan, Onychomycosis B35.1 and Othe r diabetic neurological complication associated with type 2 diabetes mellitus E11.49 [place] [address] [place] [id number] [address] [place] [address] Jan, Anemia D64.9 [place] [address] [place] [id number] [address] [place] [address] Jan, [place] [address] [place] [id number] [address] [place] [address] Dec, Urinary tract infection with out hematuria, site unspecified N39.0 [place] [address] [place] [id number] [address] [place] [address] Dec, Type 2 diabetes mellitus wit h complication E11.8 ; Urinary tract infection without hematuria, site unspecified N39.0 ; Impacted cerumen of both ears H61.23 ; Encounter for immunization Z23 and Hyponatremia E87.1 [place] [address] [place] [id number] [address] [place] [address] Dec, Intermittent explosive disor salvatore in adult F63.81 ; Dysuria R30.0 ; Type 2 diabetes mellitus with complication E11.8 ; Bipolar disorder, unspecified F31.9 and Mild intellectual disability F70 [place] [address] [place] [id number] [address] [place] [address] Dec, Dysuria R30.0 [place] [address] [place] [id number] [address] [place] [address] Dec, Intermittent explosive disor salvatore in adult F63.81 ; Bipolar disorder, unspecified F31.9 and Mild intellectual disability F70 [place] [address] [place] [id number] [address] [place] [address] Nov, [facility] [address] [id number] [address] [place] [address] Oct, [facility] [address] [facility] [id number] [place] [phone] Oct, Oral health maintenance stat us requiring routine preventive dental care K08.9 [facility] [address] [facility] [id number] [address] [place] [address] August, Intermittent explosive disor salvatore in adult F63.81 ; Bipolar disorder, unspecified F31.9 and Mild intellectual disability F70 [facility] [address] [facility] [id number] [address] [place] [address] [id number] August, Dental caries K02.9 [facility] [address] [facility] [id number] [address] [place] [address] Jul, Onychomycosis B35.1 ; Other diabetic neurological complication associated with type 2 diabetes mellitus E11.49 and Tinea pedis of both feet B35.3 [facility] [address] [id number] [address] [place] [address] [id number] Jul, Caries K02.9 [facility] [address] [facility] [id number] [address] [place] [address] Jul, Type 2 diabetes mellitus wit h complication E11.8 ; Tobacco abuse Z72.0 and Bipolar disorder, unspecified F31.9 [facility] [address] [facility] [id number] [address] [place] [address] Jun, [facility] [address] [id number] [address] [place] [address] [id number] Jun, Dental examination Z01.20 an d Oral health maintenance status requiring routine preventive dental care K08.9 [facility] [address] [facility] [id number] [address] [place] [address] May, Bilateral impacted cerumen H 61.23 [facility] [address] [facility] [id number] [address] [place] [address] Apr, Bipolar disorder, unspecifie d F31.9 ; Intermittent explosive disorder in adult F63.81 ; Type 2 diabetes mellitus with complication E11.8 ; Tobacco abuse Z72.0 and Colon cancer screening Z12.11 [facility] [address] [place] [address] Apr, Onychomycosis B35.1 and Othe r diabetic neurological complication associated with type 2 diabetes mellitus E11.49 [facility] [address] [place] [id number] [address] [place] [address] Apr, Intermittent explosive disor salvatore in adult F63.81 ; Bipolar disorder, unspecified F31.9 and Mild intellectual disability F70 [place] [address] [place] [id number] [address] [place] [address] 03 Mar, 2018 Diabetes E11.9 [facility] [address] [place] [id number] [address] [place] [address] Jan, Encounter for immunization Z 23 [facility] [address] [place] [address] Jan, Tinea pedis of both feet B35 .3 ; Other diabetic neurological complication associated with type 2 diabetes mellitus E11.49 and Onychomycosis B35.1 [facility] [address] [place] [id number] [address] [place] [address] Nov, Type 2 diabetes mellitus wit h complication E11.8 [place] [address] [place] [address] Nov, [facility] [address] [place] [id number] [address] [place] [address] Oct, Intermittent explosive disor salvatore in adult F63.81 ; Bipolar disorder, unspecified F31.9 and Mild intellectual disability F70 [facility] [address] [place] [id number] [address] [place] [address] Oct, [facility] [address] [facility] [id number] [address] [place] [address] [id number] Oct, Dental examination Z01.20 [facility] [address] [facility] [id number] [address] [place] [phone] 06 Oct, 2017 Onychomycosis B35.1 and Othe r diabetic neurological complication associated with type 2 diabetes mellitus E11.49 [facility] [address] [place] [id number] [address] [place] [address] Sep, Type 2 diabetes mellitus wit h complication E11.8 and Colon cancer screening Z12.11 [facility] [address] [place] [id number] [address] [place] [id number] 18 Sep, 2017 Type 2 diabetes mellitus wit h complication E11.8 ; Colon cancer screening Z12.11 and Neuropathy G62.9 [place] [address] [place] [id number] [address] [place] [address] August, Diabetes E11.9 [facility] [address] [place] [id number] [address] [place] [address] [id number] Jul, Dental examination Z01.20 [place] [address] [place] [address] 27 May, 2017 Mild intellectual disability F70 [place] [address] [place] [id number] [address] [place] [address] 07 May, 2017 Mild intellectual disability F70 ; High risk medication use Z79.899 ; Intermittent explosive disorder in adult F63.81 and Bipolar disorder, unspecified F31.9 [place] [address] [place] [address] May, [place] [address] [place] [id number] [address] [place] [id number] May, [place] [address] [place] [id number] [address] [place] [address] Apr, Type 2 diabetes mellitus wit h complication E11.8 ; Mild intellectual disability F70 ; Gastroesophageal reflux disease without esophagitis K21.9 ; Reactive airway disease, mild intermittent, uncomplicated J45.20 and Tobacco abuse Z72.0 [place] [address] [place] [address] Apr, High risk medication use Z79 .899 ; Mild intellectual disability F70 ; Intermittent explosive disorder in adult F63.81 and Bipolar disorder, unspecified F31.9 [facility] [address] [id number] [address] [place] [address] [id number] Mar, Encounter for dental exam an d cleaning w/o abnormal findings Z01.20 [facility] [address] [id number] [address] [place] [address] [id number] Mar, Dental examination Z01.20 [facility] [address] [id number] [address] [place] [phone] 12 Jan, 2017 [facility] [address] [id number] [address] [place] [phone] Jan, [facility] [address] [id number] [address] [place] [address] Jan, Mild intellectual disability F70 ; Bipolar disorder, unspecified F31.9 and Intermittent explosive disorder in adult F63.81 [facility] [address] [id number] [address] [place] [phone] 02 Jan, 2017 Diabetes E11.9 [facility] [address] [id number] [address] [place] [address] [id number] Dec, Encounter for dental examina tion and cleaning without abnormal findings Z01.20 [facility] [address] [id number] [address] [place] [id number] 12 Dec, 2016 Bipolar disorder, unspecifie d F31.9 ; Intermittent explosive disorder in adult F63.81 and Mild intellectual disability F70 [facility] [address] [id number] [address] [place] [address] Nov, Diabetes E11.9 [facility] [address] [id number] [address] [place] [address] Nov, [facility] [address] [id number] [address] [place] [phone] 14 Nov, 2016 Diabetes E11.9 and Colon can cer screening Z12.11 [facility] [address] [id number] [id number] 21 Sep, 2016 Dental examination Z01.20 [facility] [address] [id number] [address] [place] [address] [id number] 21 Sep, 2016 Encounter for dental examina tion and cleaning without abnormal findings Z01.20 [facility] [address] [id number] [address] [place] [address] 13 Sep, 2016 Bipolar disorder, unspecifie d F31.9 [facility] [address] [id number] [address] [place] [address] 12 Sep, 2016 Bipolar disorder, unspecifie d F31.9 [facility] [address] [facility] [id number] [address] [place] [phone] Jul, [facility] [address] [facility] [id number] [address] [place] [id number] 13 Jul, 2016 Type 2 diabetes mellitus wit h complication E11.8 [facility] [address] [id number] [address] [place] [address] [id number] 15 Jun, 2016 Encounter for dental examina tion and cleaning without abnormal findings Z01.[address] [id number] [id number] 15 Jun, 2016 Dental examination Z01.20 [facility] [address] [facility] [id number] [address] [place] [id number] 18 Apr, 2016 Sports physical Z02.5 [facility] [address] [facility] [id number] [address] [place] [id number] 14 Mar, 2016 Bipolar disorder, in partial remission, most recent episode manic F31.73 and Intermittent explosive disorder in adult F63.81 [facility] [address] [id number] [address] [place] [phone] 08 Mar, 2016 [facility] [address] [facility] [id number] [address] [place] [address] Mar, Diabetes E11.9 [facility] [address] [id number] [address] [place] [address] [id number] Feb, Encounter for dental examina tion and cleaning without abnormal findings Z01.20 [facility] [address] [id number] [address] [place] [id number] 22 Dec, 2015 Nocturnal hypoxemia G47.34 a nd Encounter for immunization Z23 [facility] [address] [id number] [address] [place] [id number] 15 Dec, 2015 [facility] [address] [facility] [id number] [address] [place] [address] Dec, [facility] [address] [facility] [id number] [address] [place] [address] Dec, Bipolar disorder, unspecifie d F31.9 [facility] [address] [facility] [id number] [place] [address] [id number] Oct, Encounter for dental examina tion and cleaning without abnormal findings Z01.20 [place] [id number] [facility] [id number] [place] [address] [id number] Oct, Dental examination Z01.20 [facility] [address] [facility] [id number] [address] [place] [phone] Oct, Diabetes E11.9 [facility] [address] [facility] [id number] [address] [place] [address] Oct, Diabetes E11.9 ; Reactive ai rway disease, mild intermittent, uncomplicated J45.20 and Tobacco abuse Z72.0 [facility] [address] [facility] [id number] [address] [place] [address] Sep, Bipolar disorder, unspecifie d F31.9 and Depression F32.9 [facility] [address] [facility] [id number] [address] [place] [phone] Sep, [facility] [address] [facility] [id number] [address] [place] [address] August, Tinea pedis of both feet B35 .3 and DM w/o complication type II, uncontrolled E11.65 [place] [address] [id number] Jul, [place] [address] [id number] Jul, [place] [address] [address] Jul, Obstructive sleep apnea G47. 33 [place] [address] [address] Jun, Diabetes E11.9 [place] [address] [address] Jun, [place] [address] [address] Jun, [place] [address] [id number] Jun, Bipolar disorder, unspecifie d F31.9 and Mental retardation F79 [place] [address] [address] Apr, [place] [address] [address] Feb, Diabetes E11.9 ; Encounter f or immunization Z23 ; Cough R05 and Nicotine abuse Z72.0 [place] [address] [address] Jan, Bipolar disorder, unspecifie d F31.9 and Diabetes mellitus without mention of complication, type II or unspecified type, uncontrolled 250.02 [place] [address] [address] Jan, [place] [address] [address] Dec, Reactive airway disease 493. 90 and Enuresis 788.30 [facility] [address] [id number] [address] [place] [phone] Dec, [facility] [address] [facility] [id number] [address] [place] [address] Nov, [facility] [address] [facility] [id number] [address] [place] [id number] Nov, [facility] [address] [facility] [id number] [address] [place] [address] Nov, Annual physical exam V70.0 ; Urinary incontinence 788.30 ; Diabetes 250.00 and Hypertension 401.9 [facility] [address] [facility] [id number] [address] [place] [address] Oct, Diabetes mellitus without me ntion of complication, type II or unspecified type, uncontrolled 250.02 [facility] [address] [facility] [id number] [address] [place] [id number] Oct, Diabetes mellitus without me ntion of complication, type II or unspecified type, uncontrolled 250.02 [facility] [address] [facility] [id number] [address] [place] [id number] Oct, Diabetes mellitus without me ntion of complication, type II or unspecified type, uncontrolled 250.02 [facility] [address] [place] [id number] [address] [place] [phone] Oct, [facility] [address] [facility] [id number] [address] [place] [id number] Oct, [facility] [address] [facility] [id number] [address] [place] [address] Oct, Bipolar disorder, unspecifie d 296.80 [facility] [address] [id number] [address] [place] [address] [id number] Sep, Dental examination V72.2 [facility] [address] [facility] [id number] [address] [place] [phone] August, [facility] [address] [place] [id number] [address] [place] [address] [id number] August, Dental examination V72.2 [facility] [address] [id number] [address] [place] [id number] August, [facility] [address] [id number] [address] [place] [address], [place] [id number] 14 Jul, 2014 [facility] [address] [id number] [address] [place] [phone] Jul, [facility] [address] [id number] [address] [place] [address], [place] [id number] 17 Jun, 2014 [facility] [address] [id number] [address] [place] [address], [place] [id number] Jun, [facility] [address] [id number] [address] [place] [place] [address] Jun, [facility] [address] [id number] [address] [place] [address] Jun, [facility] [address] [id number] [address] [place] [address] May, [facility] [address] [id number] [address] [place] [address] 23 May, 2014 [facility] [address] [id number] [address] [place] [address] 16 May, 2014 [facility] [address] [id number] [address] [place] [address] 16 May, 2014 [facility] [address] [id number] [address] [place] [address] May, [facility] [address] [id number] [address] [place] [address] 16 May, 2014 [facility] [address] [id number] [address] [place] [address] 16 May, 2014 [facility] [address] [id number] [address] [place] [address] May, 2014 [facility] [address] [id number] [address] [place] [address], [place] [address] May, 2014 [facility] [address] [id number] [address] [place] [address], [place] [address] May, 2014 [facility] [address] [id number] [address] [place] [address], [place] [address] May, 2014 [facility] [address] [id number] [address] [place] [address], [place] [address] May, 2014 [facility] [address] [id number] [address] [place] [address], [place] [address] May, 2014 [facility] [address] [id number] [address] [place] [address], [place] [address] May, 2014 [facility] [address] [id number] [address] [place] [address], [place] [address] May, 2014 [facility] [address] [id number] [address] [place] [address], [place] [address] Apr, [facility] [address] [id number] [address] [place] [address], [place] [address] Apr, [facility] [address] [id number] [address] [place] [address], [place] [address] Apr, [facility] [address] [id number] [address] [place] [address], [place] [address] Apr, [facility] [address] [id number] [address] [place] [address] Apr, [facility] [address] [id number] [address] [place] [address] Apr, [facility] [address] [id number] [address] [place] [address], [place] [address] Apr, [facility] [address] [id number] [address] [place] [address] Apr, [facility] [address] [id number] [address] [place] [address], [place] [address] Apr, [facility] [address] [id number] [address] [place] [address], [place] [address] Apr, [facility] [address] [id number] [address] [place] [address], [place] [address] Apr, [facility] [address] [id number] [address] [place] [address], [place] [address] Apr, [facility] [address] [id number] [address] [place] [address], [place] [address] Mar, [facility] [address] [id number] [address] [place] [address], [place] [address] Mar, [facility] [address] [id number] [address] [place] [address], [place] [address] Mar, [facility] [address] [id number] [address] [place] [address], [place] [address] Mar, [facility] [address] [id number] [address] [place] [address], [place] [address] Mar, [facility] [address] [id number] [address] [place] [address], [place] [address] Mar, [facility] [address] [id number] [address] [place] [address], [place] [address] Feb, [facility] [address] [id number] [address] [place] [address], [place] [address] Feb, [facility] [address] [id number] [address] [place] [address], [place] [address] Feb, [facility] [address] [id number] [address] [place] [address], [place] [address] 13 Feb, 2014 [facility] [address] [id number] [address] [place] [address], [place] [address] 14 Jan, 2014 [facility] [address] [id number] [address] [place] [address], [place] [address] 14 Jan, 2014 [facility] [address] [id number] [address] [place] [address], [place] [address] 14 Jan, 2014 [facility] [address] [id number] [address] [place] [address], [place] [address] Jan, [facility] [address] [id number] [address] [place] [address], [place] [address] Dec, [facility] [address] [id number] [address] [place] [address], [place] [address] Dec, [facility] [address] [id number] [address] [place] [address], [place] [address] 15 Dec, 2013 [facility] [address] [id number] [address] [place] [address], [place] [address] Dec, [facility] [address] [id number] [address] [place] [address], [place] [address] Nov, [facility] [address] [id number] [address] [place] [address], [place] [address] Nov, [facility] [address] [id number] [address] [place] [address], [place] [address] Nov, [facility] [address] [id number] [address] [place] [address], [place] [address] Nov, [facility] [address] [id number] [address] [place] [address], [place] [address] Nov, [facility] [address] [id number] [address] [place] [address], [place] [address] Nov, [facility] [address] [id number] [address] [place] [address], [place] [address] Nov, [facility] [address] [id number] [address] [place] [address], [place] [address] Oct, [facility] [address] [id number] [address] [place] [address], [place] [address] Oct, [facility] [address] [id number] [facility] [place] [address] Oct, [facility] [address] [id number] [address] [place] [address], [place] [address] Oct, [facility] [address] [id number] [address] [place] [address], [place] [address] Oct, [facility] [address] [id number] [address] [place] [address], [place] [address] Oct, [facility] [address] [id number] [address] [place] [address], [place] [address] Oct, [facility] [address] [id number] [address] [place] [address], [place] [address] Sep, [facility] [address] [id number] [address] [place] [address], [place] [address] Sep, [facility] [address] [id number] [address] [place] [address], [place] [address] Sep, [facility] [address] [id number] [address] [place] [address], [place] [address] Sep, [facility] [address] [id number] [address] [place] [address], [place] [address] Sep, [facility] [address] [id number] [address] [place] [address], [place] [address] Jul, [facility] [address] [id number] [address] [place] [address], [place] [address] Jul, [facility] [address] [id number] [address] [place] [address], [place] [address] Jul, [facility] [address] [id number] [address] [place] [address], [place] [address] Jul, [facility] [address] [id number] [address] [place] [address], [place] [address] Jul, [facility] [address] [id number] [address] [place] [address], [place] [address] Jul, [facility] [address] [id number] [facility] [place] [address] Jul, [facility] [address] [id number] [address] [place] [address], [place] [address] Jul, [facility] [address] [id number] [address] [place] [address], [place] [address] Jul, [facility] [address] [id number] [address] [place] [address], [place] [address] Jul, [facility] [address] [id number] [address] [place] [address], [place] [address] Jul, [facility] [address] [id number] [address] [place] [address], [place] [address] Jul, [facility] [address] [id number] [address] [place] [address], [place] [address] Jun, [facility] [address] [id number] [address] [place] [address], [place] [address] Jun, [facility] [address] [id number] [address] [place] [address], [place] [address] Jun, [facility] [address] [id number] [address] [place] [address], [place] [address] Jun, [facility] [address] [id number] [address] [place] [address], [place] [address] Jun, [facility] [address] [id number] [address] [place] [address], [place] [address] Jun, [facility] [address] [id number] [address] [place] [address], [place] [address] Jun, [facility] [address] [id number] [address] [place] [address], [place] [address] Jun, [facility] [address] [id number] [address] [place] [address], [place] [address] May, [facility] [address] [id number] [address] [place] [address] May, [facility] [address] [id number] [address] [place] [address], [place] [address] May, [facility] [address] [id number] [address] [place] [address], [place] [address] May, [facility] [address] [id number] [address] [place] [address], [place] [address] May, [facility] [address] [id number] [address] [place] [address], [place] [address] May, [facility] [address] [id number] [address] [place] [address], [place] [address] May, [facility] [address] [id number] [address] [place] [address], [place] [address] May, [facility] [address] [id number] [address] [place] [address], [place] [address] Apr, [facility] [address] [id number] [address] [place] [address], [place] [address] Apr, [facility] [address] [id number] [address] [place] [address], [place] [address] Apr, [facility] [address] [id number] [address] [place] [address], [place] [address] Apr, [facility] [address] [id number] [address] [place] [address], [place] [address] Mar, [facility] [address] [id number] [address] [place] [address], [place] [address] Mar, [facility] [address] [id number] [address] [place] [address], [place] [address] Mar, [facility] [address] [id number] [address] [place] [address], [place] [address] Feb, [facility] [address] [id number] [address] [place] [address], [place] [address] Feb, [facility] [address] [id number] [address] [place] [address], [place] [address] Feb, [facility] [address] [id number] [address] [place] [address], [place] [address] Feb, [facility] [address] [id number] [address] [place] [address], [place] [address] Feb, [facility] [address] [id number] [address] [place] [address], [place] [address] Feb, [facility] [address] [id number] [address] [place] [address], [place] [address] Jan, [facility] [address] [id number] [address] [place] [address], [place] [address] Jan, [facility] [address] [id number] [address] [place] [address], [place] [address] Jan, [facility] [address] [id number] [address] [place] [address] Jan, [facility] [address] [id number] [address] [place] [address], [place] [address] Jan, [facility] [address] [id number] [address] [place] [address] Jan, [facility] [address] [id number] [address] [place] [address] Jan, [facility] [address] [id number] [address] [place] [address] 25 Dec, 2012 [facility] [address] [id number] [address] [place] [address], [place] [address] 16 Sep2012 [facility] [address] [id number] [address] [place] [address] 10 Sep2012 [facility] [address] [id number] [address] [place] [address] 05 Sep2012 [facility] [address] [id number] [address] [place] [address] Nov, [facility] [address] [id number] [address] [place] [address], [place] [address] Nov, [facility] [address] [id number] [address] [place] [address], [place] [address] Nov, [facility] [address] [id number] [address] [place] [address], [place] [address] Nov, [facility] [address] [id number] [address] [place] [address], [place] [address] Nov, [facility] [address] [id number] [address] [place] [address], [place] [address] Nov, [facility] [address] [id number] [address] [place] [address], [place] [address] Nov, [facility] [address] [id number] [address] [place] [address], [place] [address] Oct, [facility] [address] [id number] [address] [place] [address], [place] [address] Oct, [facility] [address] [id number] [address] [place] [address], [place] [address] Oct, [facility] [address] [id number] [address] [place] [address], [place] [address] Oct, [facility] [address] [id number] [address] [place] [address], [place] [address] Oct, [facility] [address] [id number] [address] [place] [address], [place] [address] Oct, [facility] [address] [id number] [address] [place] [address], [place] [address] Oct, [facility] [address] [id number] [address] [place] [address], [place] [address] Oct, [facility] [address] [id number] [address] [place] [address], [place] [address] Sep, [facility] [address] [id number] [id number] August, [facility] [address] [id number] [address] [place] [address], [place] [address] August, [facility] [address] [id number] [address] [place] [address], [place] [address] Jul, [facility] [address] [id number] [address] [place] [address], [place] [address] Jul, [facility] [address] [id number] [address] [place] [address], [place] [address] Jul, [facility] [address] [id number] [address] [place] [address], [place] [address] Jul, [facility] [address] [id number] [address] [place] [address], [place] [address] Jul, [facility] [address] [id number] [address] [place] [address], [place] [address] 17 Jul, 2012 [facility] [address] [id number] [address] [place] [address], [place] [address] 16 Jul, 2012 [facility] [address] [id number] [address] [place] [address], [place] [address] Jun, [facility] [address] [id number] [address] [place] [address], [place] [address] Jun, [facility] [address] [id number] [address] [place] [address], [place] [address] Jun, [facility] [address] [id number] [address] [place] [address], [place] [address] Jun, [facility] [address] [id number] [address] [place] [address], [place] [address] Jun, [facility] [address] [id number] [address] [place] [address], [place] [address] May, [facility] [address] [id number] [address] [place] [address] 18 May, 2012 [facility] [address] [id number] [address] [place] [address], [place] [address] 04 May, 2012 [facility] [address] [id number] [address] [place] [address], [place] [address] 15 Apr, 2012 [facility] [address] [id number] [address] [place] [address], [place] [address] 14 Apr, 2012 [facility] [address] [id number] [address] [place] [address], [place] [address] 07 Apr, 2012 [facility] [address] [id number] [address] [place] [address], [place] [address] Mar, [facility] [address] [id number] [address] [place] [address], [place] [address] 31 Mar, 2012 [facility] [address] [id number] [address] [place] [address], [place] [address] Mar, [facility] [address] [id number] [address] [place] [address], [place] [address] Mar, [facility] [address] [id number] [address] [place] [address], [place] [address] Mar, [facility] [address] [id number] [address] [place] [address], [place] [address] Mar, [facility] [address] [id number] [address] [place] [address], [place] [address] Feb, [facility] [address] [id number] [address] [place] [address] Feb, [facility] [address] [id number] [address] [place] [address], [place] [address] Jan, [facility] [address] [id number] [address] [place] [address], [place] [address] Jan, [facility] [address] [id number] [address] [place] [address], [place] [address] 25 Dec, 2011 [facility] [address] [id number] [address] [place] [address], [place] [address] Nov, [facility] [address] [id number] [address] [place] [address], [place] [address] Nov, [facility] [address] [id number] [address] [place] [address], [place] [address] Nov, [facility] [address] [id number] [address] [place] [address], [place] [address] Nov, [facility] [address] [id number] [address] [place] [address], [place] [address] Oct, [facility] [address] [id number] [address] [place] [address], [place] [address] Oct, [facility] [address] [id number] [address] [place] [address], [place] [address] Oct, [facility] [address] [id number] [address] [place] [address], [place] [address] Sep, [facility] [address] [id number] [address] [place] [address], [place] [address] Sep, [facility] [address] [id number] [address] [place] [address], [place] [address] Sep, [facility] [address] [id number] [address] [place] [address], [place] [address] August, [facility] [address] [id number] [address] [place] [address], [place] [address] August, [facility] [address] [id number] [address] [place] [address], [place] [address] Jul, [facility] [address] [id number] [address] [place] [address], [place] [address] 24 Jul, 2011 [facility] [address] [id number] [address] [place] [address], [place] [address] Jul, [facility] [address] [id number] [address] [place] [address], [place] [address] Jul, [facility] [address] [id number] [address] [place] [address], [place] [address] Jun, [facility] [address] [id number] [address] [place] [address], [place] [address] May, [facility] [address] [id number] [address] [place] [address], [place] [address] Apr, [facility] [address] [id number] [address] [place] [address], [place] [address] Apr, [facility] [address] [id number] [address] [place] [address], [place] [address] Apr, [facility] [address] [id number] [address] [place] [address], [place] [address] Apr, [facility] [address] [id number] [address] [place] [address], [place] [address] Apr, [facility] [address] [id number] [address] [place] [address], [place] [address] Apr, [facility] [address] [id number] [address] [place] [address], [place] [address] Mar, [facility] [address] [id number] [address] [place] [address], [place] [address] Mar, [facility] [address] [id number] [address] [place] [address], [place] [address] Feb, [facility] [address] [id number] [address] [place] [address] Feb, [facility] [address] [id number] [address] [place] [address], [place] [address] Feb, [facility] [address] [id number] [address] [place] [address], [place] [address] 09 Feb, 2011 [facility] [address] [id number] [address] [place] [address], [place] [address] Jan, [facility] [address] [id number] [address] [place] [address], [place] [address] 18 Jan, 2011 [facility] [address] [id number] [address] [place] [address], [place] [address] 18 Jan, 2011 [facility] [address] [address] [id number] [address] [place] [address], [place] [address] 18 Jan, 2011 [facility] [address] [id number] [address] [place] [address], [place] [address] 17 Nov, 2010 [facility] [address] [id number] [address] [place] [address], [place] [address] 03 Mar, 2010 [facility] [address] [id number] [address] [place] [address], [place] [address] Mar, [facility] [address] [id number] [address] [place] [address], [place] [address] 30 Feb, 2010 [facility] [address] [id number] [address] [place] [address], [place] [address] 15 Feb, 2010 [facility] [address] [id number] [address] [place] [address], [place] [address] Jan, [facility] [address] [id number] [address] [place] [address], [place] [address] Jan, [facility] [address] [id number] [address] [place] [address], [place] [address] Sep, [facility] [address] [id number] [address] [place] [address], [place] [address] 16 May, 2009 [facility] [address] [id number] [address] [place] [address], [place] [address] Apr, [facility] [address] [id number] [address] [place] [address], [place] [address] Mar, [facility] [address] [id number] [address] [place] [address], [place] [address] 15 Feb, 2009 [facility] [address] [id number] [address] [place] [phone] Feb, [facility] [address] [facility] [id number] [address] [place] [address] Feb, [facility] [address] [id number] [address] [place] [phone] Jan, [facility] [address] [id number] [address] [place] [phone] Jan, [facility] [address] [facility] [id number] [address] [place] [id number] Jan, [facility] [address] [id number] [address] [place] [phone] Jan, [facility] [address] [facility] [id number] [address] [place] [phone] August, IMMUNIZATIONS No Known Immunizations SOCIAL HISTORY Never Assessed REASON FOR VISIT PLAN OF CARE VITAL SIGNS Height 64 in 2012-10-20 Weight 207.5 lbs 2012-10-20 Temperature 98 degrees Fahrenheit 2012-10-20 Heart Rate 82 bpm 2012-10-20 Respiratory Rate 18 2012-10-20 Blood pressure systolic 116 mmHg 2012-10-20 Blood pressure diastolic 72 mmHg 2012-10-20 MEDICATIONS Unknown Medications RESULTS No Results PROCEDURES Procedure Date Ordered Result Body Site GLYCATED HEMOGLOBIN TEST October 20, 2012 MICROALBUMIN, SEMIQUANT October 20, 2012 INSTRUCTIONS MEDICATIONS ADMINISTERED No Known Medications MEDICAL [...] age 6 Hospitalization History surgery Hospitalization History [facility], [facility] treatment few times for BH
--- OUTSIDE RECORDS SUMMARY | 2019-09-29 10:30 | XMS REPORT ---
Author Author Cameron Kothari [facility] Address [address] [place] [address] Care Team Providers Care Culture Room Worker Name Role Phone Taye JULISA Unavailable PROBLEMS Type Condition ICD9-CM Code GBF33-PN Code Onset Dates Condition S tatus SNOMED Code Problem Open-angle glaucoma of both eyes, unspecified glaucoma stage, unspecified open-angle glaucoma type H40.10X0 Acti ve 81014180 Problem Adjustment disorder, unspecified type F43.20 Active 75469968 Problem Obstructive sleep apnea G47.33 Active 52290530 Problem Hypertensive retinopathy of both eyes H35.033 Active 1550939 Problem Type 2 diabetes mellitus with complication E11.8 Active 80783147 Problem Essential hypertension I10 Active 46741888 Problem Depression F32.9 Active 85870702 Problem Intermittent explosive disorder F63.81 Active 08512730 Problem Intermittent explosive disorder in adult F63.81 Active 97093436 Problem Bipolar disorder, unspecified F31.9 Active 03520355 Problem Mild intellectual disability F70 A ctive 90201703 Problem Other specified urinary incontinence N39.498 Active 457745621 Problem Bipolar disorder, in partial remission, most rec ent episode manic F31.73 Active 29748974 Problem 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 Active 43473957 Problem Type 2 diabetes mellitus wit h diabetic neuropathy, unspecified whether long term care phlebotomist insulin use E11.40 Active 742565 228244449 Problem Diabetes E11.9 Active 71604988 Problem Reactive airway disease, unspecified asthma justin rity, uncomplicated J45.909 Active 976484876992 Problem Reactive airway disease, mild intermittent, uncomplicated J45.20 Active 103204316 Problem Gastroesophageal reflux disease without esophagitis K21.9 Active 081775909 Problem Other diabetic neurological complication associated with type 2 diabetes mellitus E11.49 Active 305068455 Problem Neuropathy G62.9 Active 701460625 ALLERGIES No Information ENCOUNTERS Encounter Location Date Diagnosis [facility] [address] [facility] [id number] [address] [place] [id number] Oct, [facility] [address] [facility] [id number] [address] [place] [id number] August, [facility] [address] [facility] [id number] [address] [place] [id number] Jul, Type 2 diabetes mellitus wit h diabetic neuropathy, unspecified whether intermediate insulin use E11.40 and Colon cancer screening Z12.11 [facility] [address] [facility] [id number] [address] [place] [id number] 10 Jul, 2019 Type 2 diabetes mellitus wit h diabetic neuropathy, unspecified whether intermediate insulin use E11.40 and Tinea pedis, unspecified laterality B35.3 [facility] [address] [place] [id number] [address] [place] [id number] 10 Jun, 2019 [facility] [address] [facility] [id number] [address] [place] [id number] Jun, [facility] [address] [facility] [id number] [address] [place] [id number] 04 Jun, 2019 Dysuria R30.0 [facility] [address] [facility] [id number] [address] [place] [id number] 02 Jun, 2019 [facility] [address] [place] [id number] [address] [place] [id number] 20 May, 2019 Influenza J11.1 [facility] [address] [facility] [id number] [address] [place] [id number] 13 May, 2019 Intermittent explosive disor salvatore in adult F63.81 [facility] [address] [place] [id number] [address] [place] [id number] 12 May, 2019 [facility] [address] [facility] [id number] [address] [place] [id number] Apr, Intermittent explosive disor salvatore in adult F63.81 ; Bipolar disorder, unspecified F31.9 and Mild intellectual disability F70 OUT[facility] [id number] [place] [id number] Apr, Oral health maintenance stat us requiring routine preventive dental care K08.9 [facility] [address] [id number] [address] [place] [id number] 20 Apr, 2019 Type 2 diabetes mellitus wit h complication E11.8 ; History of test for hearing Z92.89 ; Colon cancer screening Z12.11 ; Other specified urinary incontinence N39.498 and Impacted cerumen, right ear H61.21 [facility] [address] [id number] [address] [place] [id number] 10 Apr, 2019 Onychomycosis B35.1 ; Other diabetic neurological complication associated with type 2 diabetes mellitus E11.49 and Tinea pedis of both feet B35.3 [facility] [address] [id number] [address] [place] [id number] Feb, [facility] [address] [id number] [address] [place] [id number] Jan, [facility] [address] [id number] [address] [place] [id number] Jan, [facility] [address] [id number] [address] [place] [id number] Jan, [facility] [address] [id number] [address] [place] [id number] Jan, [facility] [address] [id number] [address] [place] [id number] Jan, [facility] [address] [id number] [address] [place] [id number] Jan, [facility] [address] [id number] [address] [place] [id number] Jan, [facility] [address] [facility] [id number] [address] [place] [id number] 07 Jan, 2019 Anemia D64.9 [facility] [id number] [place] [id number] 04 Jan, 2019 Dental examination Z01.20 an d Oral health maintenance status requiring routine preventive dental care K08.9 [place] [id number] [facility] [id number] [address] [place] [id number] Jan, Onychomycosis B35.1 and Othe r diabetic neurological complication associated with type 2 diabetes mellitus E11.49 [place] [address] [facility] [id number] [address] [place] [id number] Jan, Anemia D64.9 [facility] [address] [facility] [id number] [address] [place] [id number] Jan, [place] [address] [place] [id number] [address] [place] [id number] Dec, Urinary tract infection with out hematuria, site unspecified N39.0 [place] [address] [place] [id number] [address] [place] [id number] Dec, Type 2 diabetes mellitus wit h complication E11.8 ; Urinary tract infection without hematuria, site unspecified N39.0 ; Impacted cerumen of both ears H61.23 ; Encounter for immunization Z23 and Hyponatremia E87.1 [place] [address] [facility] [id number] [address] [place] [id number] Dec, Intermittent explosive disor salvatore in adult F63.81 ; Dysuria R30.0 ; Type 2 diabetes mellitus with complication E11.8 ; Bipolar disorder, unspecified F31.9 and Mild intellectual disability F70 [place] [address] [facility] [id number] [address] [place] [id number] Dec, Dysuria R30.0 [place] [address] [place] [id number] [address] [place] [id number] Dec, Intermittent explosive disor salvatore in adult F63.81 ; Bipolar disorder, unspecified F31.9 and Mild intellectual disability F70 [place] [address] [place] [id number] [address] [place] [id number] Nov, [facility] [address] [facility] [id number] [address] [place] [id number] Oct, [facility] [id number] [place] [id number] Oct, Oral health maintenance stat us requiring routine preventive dental care K08.9 [facility] [address] [facility] [id number] [address] [place] [id number] August, Intermittent explosive disor salvatore in adult F63.81 ; Bipolar disorder, unspecified F31.9 and Mild intellectual disability F70 [facility] [address] [id number] [address] [place] [address] [id number] August, Dental caries K02.9 [facility] [address] [facility] [id number] [address] [place] [id number] Jul, Onychomycosis B35.1 ; Other diabetic neurological complication associated with type 2 diabetes mellitus E11.49 and Tinea pedis of both feet B35.3 [facility] [address] [id number] [address] [place] [address] [id number] Jul, Caries K02.9 [facility] [address] [facility] [id number] [address] [place] [id number] Jul, Type 2 diabetes mellitus wit h complication E11.8 ; Tobacco abuse Z72.0 and Bipolar disorder, unspecified F31.9 [facility] [address] [facility] [id number] [address] [place] [id number] Jun, [facility] [address] [facility] [id number] [address] [place] [address] [id number] Jun, Dental examination Z01.20 an d Oral health maintenance status requiring routine preventive dental care K08.9 [facility] [address] [facility] [id number] [address] [place] [id number] May, Bilateral impacted cerumen H 61.23 [facility] [address] [facility] [id number] [address] [place] [id number] Apr, Bipolar disorder, unspecifie d F31.9 ; Intermittent explosive disorder in adult F63.81 ; Type 2 diabetes mellitus with complication E11.8 ; Tobacco abuse Z72.0 and Colon cancer screening Z12.11 [facility] [address] [place] [id number] [address] [place] [id number] Apr, Onychomycosis B35.1 and Othe r diabetic neurological complication associated with type 2 diabetes mellitus E11.49 [facility] [address] [place] [id number] [address] [place] [id number] Apr, Intermittent explosive disor salvatore in adult F63.81 ; Bipolar disorder, unspecified F31.9 and Mild intellectual disability F70 [place] [address] [id number] Mar, Diabetes E11.9 [facility] [address] [place] [id number] [address] [place] [id number] Jan, Encounter for immunization Z 23 [facility] [address] [id number] Jan, Tinea pedis of both feet B35 .3 ; Other diabetic neurological complication associated with type 2 diabetes mellitus E11.49 and Onychomycosis B35.1 [facility] [address] [place] [id number] [address] [place] [id number] Nov, Type 2 diabetes mellitus wit h complication E11.8 [facility] [address] [place] [id number] [address] [place] [id number] Nov, [facility] [address] [place] [id number] [address] [place] [id number] Oct, Intermittent explosive disor salvatore in adult F63.81 ; Bipolar disorder, unspecified F31.9 and Mild intellectual disability F70 [facility] [address] [place] [id number] Oct, [facility] [address] [place] [id number] [address] [place] [address] [id number] 11 Alexis, 2018 Dental examination Z01.20 [facility] [address] [facility] [id number] [address] [place] [id number] 06 Oct, 2017 Onychomycosis B35.1 and Othe r diabetic neurological complication associated with type 2 diabetes mellitus E11.49 [facility] [address] [place] [id number] [address] [place] [id number] 19 Sep, 2017 Type 2 diabetes mellitus wit h complication E11.8 and Colon cancer screening Z12.11 [facility] [address] [place] [id number] [address] [place] [id number] 18 Sep, 2017 Type 2 diabetes mellitus wit h complication E11.8 ; Colon cancer screening Z12.11 and Neuropathy G62.9 [place] [address] [place] [id number] [address] [place] [id number] August, Diabetes E11.9 [facility] [id number] [place] [address] [id number] Jul, Dental examination Z01.20 [facility] [address] [place] [id number] [address] [place] [id number] 27 May, 2017 Mild intellectual disability F70 [place] [address] [id number] 07 May, 2017 Mild intellectual disability F70 ; High risk medication use Z79.899 ; Intermittent explosive disorder in adult F63.81 and Bipolar disorder, unspecified F31.9 [place] [address] [place] [id number] May, [place] [address] [place] [id number] [address] [place] [id number] May, [place] [address] [id number] Apr, Type 2 diabetes mellitus wit h complication E11.8 ; Mild intellectual disability F70 ; Gastroesophageal reflux disease without esophagitis K21.9 ; Reactive airway disease, mild intermittent, uncomplicated J45.20 and Tobacco abuse Z72.0 [place] [address] [place] [id number] [address] [place] [id number] Apr, High risk medication use Z79 .899 ; Mild intellectual disability F70 ; Intermittent explosive disorder in adult F63.81 and Bipolar disorder, unspecified F31.9 [facility] [address] [id number] [address] [place] [address] [id number] Mar, Encounter for dental exam an d cleaning w/o abnormal findings Z01.20 [facility] [address] [id number] [address] [place] [address] [id number] Mar, Dental examination Z01.20 [facility] [address] [id number] [address] [place] [id number] 12 Jan, 2017 [facility] [address] [id number] [address] [place] [id number] Jan, [facility] [address] [id number] [address] [place] [id number] Jan, Mild intellectual disability F70 ; Bipolar disorder, unspecified F31.9 and Intermittent explosive disorder in adult F63.81 [facility] [address] [id number] [address] [place] [id number] Jan, Diabetes E11.9 [facility] [address] [id number] [address] [place] [address] [id number] Dec, Encounter for dental examina tion and cleaning without abnormal findings Z01.20 [facility] [address] [id number] [address] [place] [id number] Dec, Bipolar disorder, unspecifie d F31.9 ; Intermittent explosive disorder in adult F63.81 and Mild intellectual disability F70 [facility] [address] [id number] [address] [place] [id number] Nov, Diabetes E11.9 [facility] [address] [id number] [address] [place] [id number] Nov, [facility] [address] [id number] [address] [place] [id number] 14 Nov, 2016 Diabetes E11.9 and Colon can cer screening Z12.11 [facility] [address] [id number] [id number] 21 Sep, 2016 Dental examination Z01.20 [facility] [address] [id number] [address] [place] [address] [id number] 21 Sep, 2016 Encounter for dental examina tion and cleaning without abnormal findings Z01.20 [facility] [address] [id number] [address] [place] [id number] 13 Sep, 2016 Bipolar disorder, unspecifie d F31.9 [facility] [address] [id number] [address] [place] [id number] 12 Sep, 2016 Bipolar disorder, unspecifie d F31.9 [facility] [address] [facility] [id number] [address] [place] [id number] Jul, [facility] [address] [facility] [id number] [address] [place] [id number] Jul, Type 2 diabetes mellitus wit h complication E11.8 [facility] [address] [id number] [address] [place] [address] [id number] 15 Jun, 2016 Encounter for dental examina tion and cleaning without abnormal findings Z01.[address] [id number] [id number] 15 Jun, 2016 Dental examination Z01.20 [facility] [address] [facility] [id number] [address] [place] [id number] 18 Apr, 2016 Sports physical Z02.5 [facility] [address] [facility] [id number] [address] [place] [id number] 14 Mar, 2016 Bipolar disorder, in partial remission, most recent episode manic F31.73 and Intermittent explosive disorder in adult F63.81 [facility] [address] [id number] [address] [place] [id number] 08 Mar, 2016 [facility] [address] [facility] [id number] [address] [place] [id number] Mar, Diabetes E11.9 [facility] [address] [id number] [address] [place] [address] [id number] Feb, Encounter for dental examina tion and cleaning without abnormal findings Z01.20 [facility] [address] [id number] [address] [place] [id number] 22 Dec, 2015 Nocturnal hypoxemia G47.34 a nd Encounter for immunization Z23 [facility] [address] [id number] [address] [place] [id number] 15 Dec, 2015 [facility] [address] [id number] [address] [place] [id number] Dec, [facility] [address] [facility] [id number] [address] [place] [id number] Dec, Bipolar disorder, unspecifie d F31.9 [facility] [address] [facility] [id number] [place] [address] [id number] Oct, Encounter for dental examina tion and cleaning without abnormal findings Z01.[id number] [place] [address] [id number] Oct, Dental examination Z01.20 [facility] [address] [facility] [id number] [address] [place] [id number] Oct, Diabetes E11.9 [facility] [address] [facility] [id number] [address] [place] [id number] Oct, Diabetes E11.9 ; Reactive ai rway disease, mild intermittent, uncomplicated J45.20 and Tobacco abuse Z72.0 [facility] [address] [facility] [id number] [address] [place] [id number] Sep, Bipolar disorder, unspecifie d F31.9 and Depression F32.9 [facility] [address] [facility] [id number] [address] [place] [id number] Sep, [facility] [address] [facility] [id number] [address] [place] [id number] August, Tinea pedis of both feet B35 .3 and DM w/o complication type II, uncontrolled E11.65 [place] [address] [id number] Jul, [place] [address] [id number] Jul, [place] [address] [address] Jul, Obstructive sleep apnea G47. 33 [place] [address] [id number] Jun, Diabetes E11.9 [place] [address] [id number] Jun, [place] [address] [id number] Jun, [place] [address] [id number] Jun, Bipolar disorder, unspecifie d F31.9 and Mental retardation F79 [place] [address] [id number] Apr, [place] [address] [id number] Feb, Diabetes E11.9 ; Encounter f or immunization Z23 ; Cough R05 and Nicotine abuse Z72.0 [place] [address] [id number] Jan, Bipolar disorder, unspecifie d F31.9 and Diabetes mellitus without mention of complication, type II or unspecified type, uncontrolled 250.02 [place] [address] [id number] Jan, [place] [address] [id number] Dec, Reactive airway disease 493. 90 and Enuresis 788.30 [facility] [address] [facility] [id number] [address] [place] [id number] Dec, [facility] [address] [facility] [id number] [address] [place] [id number] Nov, [facility] [address] [facility] [id number] [address] [place] [id number] Nov, [facility] [address] [facility] [id number] [place] [id number] Nov, Annual physical exam V70.0 ; Urinary incontinence 788.30 ; Diabetes 250.00 and Hypertension 401.9 [facility] [address] [place] [id number] [place] [id number] Oct, Diabetes mellitus without me ntion of complication, type II or unspecified type, uncontrolled 250.02 [facility] [address] [id number] Oct, Diabetes mellitus without me ntion of complication, type II or unspecified type, uncontrolled 250.02 [facility] [address] [place] [id number] [address] [place] [id number] Oct, Diabetes mellitus without me ntion of complication, type II or unspecified type, uncontrolled 250.02 [facility] [address] [place] [id number] [address] [place] [id number] Oct, [facility] [address] [place] [id number] [address] [place] [id number] Oct, [facility] [address] [facility] [id number] [address] [place] [id number] Oct, Bipolar disorder, unspecifie d 296.80 [facility] [address] [place] [id number] [address] [place] [address] [id number] Sep, Dental examination V72.2 [facility] [address] [facility] [id number] [address] [place] [id number] August, [facility] [address] [place] [id number] August, Dental examination V72.2 [facility] [address] [id number] [address] [place] [id number] August, [facility] [address] [id number] [address] [place] [id number] 14 Jul, 2014 [facility] [address] [id number] [address] [place] [id number] Jul, [facility] [address] [id number] [address] [place] [id number] 17 Jun, 2014 [facility] [address] [id number] [address] [place] [id number] Jun, [facility] [address] [id number] [address] [place] [id number] Jun, [facility] [address] [id number] [address] [place] [id number] Jun, [facility] [address] [id number] [address] [place] [id number] May, [facility] [address] [id number] [address] [place] [id number] 23 May, 2014 [facility] [address] [id number] [address] [place] [id number] 16 May, 2014 [facility] [address] [id number] [address] [place] [id number] May, 2014 [facility] [address] [id number] [address] [place] [id number] May, [facility] [address] [id number] [address] [place] [id number] 16 May, 2014 [facility] [address] [id number] [address] [place] [id number] 16 May, 2014 [facility] [address] [id number] [address] [place] [phone] May, 2014 [facility] [address] [id number] [address] [place] [address], [place] [address] May, 2014 [facility] [address] [id number] [address] [place] [address], [place] [address] May, 2014 [facility] [address] [id number] [address] [place] [address], [place] [address] May, 2014 [facility] [address] [id number] [address] [place] [address], [place] [address] May, 2014 [facility] [address] [id number] [address] [place] [address], [place] [address] May, 2014 [facility] [address] [id number] [address] [place] [address], [place] [address] May, 2014 [facility] [address] [id number] [address] [place] [address], [place] [address] May, [facility] [address] [id number] [address] [place] [address], [place] [address] Apr, [facility] [address] [id number] [address] [place] [address], [place] [address] Apr, [facility] [address] [id number] [address] [place] [address], [place] [address] Apr, [facility] [address] [id number] [address] [place] [address], [place] [address] Apr, [facility] [address] [id number] [address] [place] [address] Apr, [facility] [address] [id number] [address] [place] [address], [place] [address] Apr, [facility] [address] [id number] [address] [place] [address], [place] [address] Apr, [facility] [address] [id number] [address] [place] [id number] Apr, [facility] [address] [id number] [address] [place] [address], [place] [address] Apr, [facility] [address] [id number] [address] [place] [address], [place] [address] Apr, [facility] [address] [id number] [address] [place] [address], [place] [address] Apr, [facility] [address] [id number] [address] [place] [address], [place] [address] Apr, [facility] [address] [id number] [address] [place] [address], [place] [address] Mar, [facility] [address] [id number] [address] [place] [address], [place] [address] Mar, [facility] [address] [id number] [address] [place] [address], [place] [address] Mar, [facility] [address] [id number] [address] [place] [address], [place] [address] Mar, [facility] [place] [address] [id number] [address] [place] [address], [place] [address] Mar, [facility] [address] [id number] [address] [place] [address], [place] [address] Mar, [facility] [address] [id number] [address] [place] [address], [place] [address] Feb, [facility] [address] [id number] [address] [place] [address], [place] [address] Feb, [facility] [address] [id number] [address] [place] [address], [place] [address] Feb, [facility] [address] [id number] [address] [place] [address], [place] [address] Feb, [facility] [address] [id number] [address] [place] [address], [place] [address] 14 Jan, 2014 [facility] [address] [id number] [address] [place] [address], [place] [address] 14 Jan, 2014 [facility] [address] [id number] [address] [place] [address], [place] [address] 14 Jan, 2014 [facility] [address] [id number] [address] [place] [address], [place] [address] Jan, [facility] [address] [id number] [address] [place] [address], [place] [address] Dec, [facility] [address] [id number] [address] [place] [address], [place] [address] Dec, [facility] [address] [id number] [address] [place] [address], [place] [address] Dec, [facility] [address] [id number] [address] [place] [address], [place] [address] Dec, [facility] [address] [id number] [address] [place] [address], [place] [address] Nov, [facility] [address] [id number] [address] [place] [address], [place] [address] Nov, [facility] [address] [id number] [address] [place] [address], [place] [address] Nov, [facility] [address] [id number] [address] [place] [address], [place] [address] Nov, [facility] [address] [id number] [address] [place] [address], [place] [address] Nov, [facility] [address] [id number] [address] [place] [address], [place] [address] Nov, [facility] [address] [id number] [address] [place] [address], [place] [address] Nov, [facility] [address] [id number] [address] [place] [address], [place] [address] Oct, [facility] [address] [id number] [address] [place] [address], [place] [address] Oct, [facility] [address] [id number] [facility] [place] [address] Oct, [facility] [address] [id number] [facility] [place] [address] Oct, [facility] [address] [id number] [address] [place] [address], [place] [address] Oct, [facility] [address] [id number] [address] [place] [address], [place] [address] Oct, [facility] [address] [id number] [address] [place] [address], [place] [address] Oct, [facility] [address] [id number] [address] [place] [address], [place] [address] Sep, [facility] [address] [id number] [address] [place] [address], [place] [address] Sep, [facility] [address] [id number] [address] [place] [address], [place] [address] Sep, [facility] [place] [address] [id number] [address] [place] [address], [place] [address] Sep, [facility] [address] [id number] [address] [place] [address], [place] [address] Sep, [facility] [place] [address] [id number] [address] [place] [address], [place] [address] Jul, [facility] [address] [id number] [address] [place] [address], [place] [address] Jul, [facility] [address] [id number] [address] [place] [address], [place] [address] Jul, [facility] [address] [id number] [address] [place] [address], [place] [address] Jul, [facility] [address] [id number] [address] [place] [address], [place] [address] Jul, [facility] [address] [id number] [address] [place] [address], [place] [address] Jul, [facility] [address] [id number] [facility] [place] [address] Jul, [facility] [address] [id number] [facility] [place] [address] Jul, [facility] [address] [id number] [facility] [place] [address] Jul, [facility] [address] [id number] [address] [place] [address], [place] [address] Jul, [facility] [address] [id number] [address] [place] [address], [place] [address] Jul, [facility] [address] [id number] [address] [place] [address], [place] [address] Jul, [facility] [address] [id number] [address] [place] [address], [place] [address] Jun, [facility] [address] [id number] [address] [place] [address], [place] [address] Jun, [facility] [address] [id number] [address] [place] [address], [place] [address] Jun, [facility] [address] [id number] [address] [place] [address], [place] [address] Jun, [facility] [address] [id number] [address] [place] [address], [place] [address] Jun, [facility] [address] [id number] [address] [place] [address], [place] [address] Jun, [facility] [address] [id number] [address] [place] [address], [place] [address] Jun, [facility] [address] [id number] [address] [place] [address], [place] [address] Jun, [facility] [address] [id number] [address] [place] [address], [place] [address] May, [facility] [address] [id number] [address] [place] [address], [place] [address] May, [facility] [address] [id number] [address] [place] [address], [place] [address] May, [facility] [address] [id number] [address] [place] [address], [place] [address] May, [facility] [address] [id number] [address] [place] [address], [place] [address] May, [facility] [address] [id number] [address] [place] [address], [place] [address] May, [facility] [address] [id number] [address] [place] [address], [place] [address] May, [facility] [address] [id number] [address] [place] [address], [place] [address] May, [facility] [address] [id number] [address] [place] [address], [place] [address] Apr, [facility] [address] [id number] [address] [place] [address], [place] [address] Apr, [facility] [address] [id number] [address] [place] [address], [place] [address] Apr, [facility] [address] [id number] [address] [place] [address], [place] [address] Apr, [facility] [address] [id number] [address] [place] [address], [place] [address] Mar, [facility] [address] [id number] [address] [place] [address], [place] [address] Mar, [facility] [address] [id number] [address] [place] [address], [place] [address] Mar, [facility] [address] [id number] [address] [place] [address], [place] [address] Feb, [facility] [address] [id number] [address] [place] [address], [place] [address] Feb, [facility] [address] [id number] [address] [place] [address], [place] [address] Feb, [facility] [address] [id number] [address] [place] [address], [place] [address] Feb, [facility] [address] [id number] [address] [place] [address], [place] [address] Feb, [facility] [address] [id number] [address] [place] [address], [place] [address] Feb, [facility] [address] [id number] [address] [place] [address], [place] [address] Jan, [facility] [address] [id number] [address] [place] [address], [place] [address] Jan, [facility] [address] [id number] [address] [place] [address], [place] [address] Jan, [facility] [address] [id number] [address] [place] [address], [place] [address] Jan, [facility] [address] [id number] [address] [place] [address], [place] [address] Jan, [facility] [address] [id number] [address] [place] [address], [place] [address] Jan, [facility] [address] [id number] [address] [place] [address], [place] [address] Jan, [facility] [address] [id number] [address] [place] [address], [place] [address] 25 Dec, 2012 [facility] [address] [id number] [address] [place] [address], [place] [address] 16 Sep2012 [facility] [address] [id number] [address] [place] [address], [place] [address] 10 Sep2012 [facility] [address] [id number] [address] [place] [address], [place] [address] 05 Sep2012 [facility] [address] [id number] [address] [place] [address] [place] [address] Nov, [facility] [address] [id number] [address] [place] [address], [place] [address] Nov, [facility] [address] [id number] [address] [place] [address], [place] [address] Nov, [facility] [address] [id number] [address] [place] [address], [place] [address] Nov, [facility] [address] [id number] [address] [place] [address], [place] [address] Nov, [facility] [address] [id number] [address] [place] [address], [place] [address] Nov, [facility] [address] [id number] [address] [place] [address], [place] [address] Nov, [facility] [address] [id number] [address] [place] [address], [place] [address] Oct, [facility] [place] [address] [id number] [address] [place] [address], [place] [address] Oct, [facility] [place] [address] [id number] [address] [place] [address], [place] [address] Oct, [facility] [address] [id number] [address] [place] [address], [place] [address] Oct, [facility] [address] [id number] [address] [place] [address], [place] [address] Oct, [facility] [address] [id number] [address] [place] [address], [place] [address] Oct, [facility] [address] [id number] [address] [place] [address], [place] [address] Oct, [facility] [address] [id number] [address] [place] [address], [place] [address] Oct, [facility] [address] [id number] [address] [place] [address], [place] [address] Sep, Suleiman PEREZ [address] [id number] [place] [id number] August, [facility] [place] [address] [id number] [address] [place] [address], [place] [address] August, [facility] [address] [id number] [address] [place] [address], [place] [address] Jul, [facility] [address] [id number] [address] [place] [address], [place] [address] Jul, [facility] [place] [address] [id number] [address] [place] [address], [place] [address] Jul, [facility] [place] [address] [id number] [address] [place] [address], [place] [address] Jul, [facility] [address] [id number] [address] [place] [address], [place] [address] Jul, [facility] [place] [address] [id number] [address] [place] [address], [place] [address] Jul, [facility] [place] [address] [id number] [address] [place] [address], [place] [address] Jul, [facility] [address] [id number] [address] [place] [address], [place] [address] Jun, [facility] [address] [id number] [address] [place] [address], [place] [address] Jun, [facility] [place] [address] [id number] [address] [place] [address], [place] [address] Jun, [facility] [place] [address] [id number] [address] [place] [address], [place] [address] Jun, [facility] [place] [address] [id number] [address] [place] [address], [place] [address] Jun, [facility] [address] [id number] [address] [place] [id number] May, [facility] [place] [address] [id number] [address] [place] [id number] 18 May, 2012 [facility] [address] [id number] [address] [place] [address], [place] [address] 04 May, 2012 [facility] [address] [id number] [address] [place] [address], [place] [address] 15 Apr, 2012 [facility] [address] [id number] [address] [place] [address], [place] [address] 14 Apr, 2012 [facility] [address] [id number] [address] [place] [address], [place] [address] 07 Apr, 2012 [facility] [address] [id number] [address] [place] [address], [place] [address] Mar, [facility] [address] [id number] [address] [place] [address], [place] [address] Mar, [facility] [address] [id number] [address] [place] [address], [place] [address] Mar, [facility] [address] [id number] [address] [place] [address], [place] [address] Mar, [facility] [address] [id number] [address] [place] [address], [place] [address] Mar, [facility] [address] [id number] [address] [place] [address], [place] [address] Mar, [facility] [address] [id number] [address] [place] [address], [place] [address] Feb, [facility] [address] [id number] [address] [place] [id number] Feb, [facility] [address] [id number] [address] [place] [address], [place] [address] Jan, [facility] [address] [id number] [address] [place] [address], [place] [address] Jan, [facility] [address] [id number] [address] [place] [address], [place] [address] 25 Dec, 2011 [facility] [address] [id number] [facility] [place] [address] Nov, [facility] [address] [id number] [address] [place] [address], [place] [address] Nov, [facility] [address] [id number] [address] [place] [address], [place] [address] Nov, [facility] [address] [id number] [address] [place] [address], [place] [address] Nov, [facility] [address] [id number] [address] [place] [address], [place] [address] Oct, [facility] [address] [id number] [address] [place] [address], [place] [address] Oct, [facility] [address] [id number] [address] [place] [address], [place] [address] Oct, [facility] [address] [id number] [address] [place] [address], [place] [address] Sep, [facility] [address] [id number] [address] [place] [address], [place] [id number] Sep, [facility] [address] [id number] [address] [place] [address], [place] [address] Sep, [facility] [address] [id number] [address] [place] [address], [place] [address] August, [facility] [address] [id number] [address] [place] [address], [place] [address] August, [facility] [address] [id number] [address] [place] [address], [place] [address] Jul, [facility] [address] [id number] [address] [place] [address], [place] [address] Jul, [facility] [address] [id number] [address] [place] [address], [place] [address] Jul, [facility] [address] [id number] [address] [place] [address], [place] [address] Jul, [facility] [address] [id number] [address] [place] [address], [place] [address] Jun, [facility] [address] [id number] [address] [place] [address], [place] [address] May, [facility] [address] [id number] [address] [place] [address], [place] [address] Apr, [facility] [address] [id number] [address] [place] [address], [place] [address] Apr, [facility] [address] [id number] [address] [place] [address], [place] [address] Apr, [facility] [address] [id number] [address] [place] [address], [place] [address] Apr, [facility] [address] [id number] [address] [place] [address], [place] [address] Apr, [facility] [address] [id number] [address] [place] [address], [place] [address] Apr, [facility] [address] [id number] [address] [place] [address], [place] [address] Mar, [facility] [address] [id number] [address] [place] [address], [place] [id number] Mar, [facility] [address] [id number] [address] [place] [address], [place] [address] Feb, [facility] [address] [id number] [address] [place] [address], [place] [address] Feb, [facility] [address] [id number] [address] [place] [address], [place] [address] Feb, [facility] [address] [id number] [address] [place] [address], [place] [address] 09 Feb, 2011 [facility] [address] [id number] [address] [place] [address], [place] [address] Jan, [facility] [address] [id number] [address] [place] [address], [place] [address] 18 Jan, 2011 [facility] [address] [id number] [address] [place] [address], [place] [address] 18 Jan, 2011 [facility] [address] [id number] [address] [place] [address], [place] [id number] 18 Jan, 2011 [facility] [address] [id number] [address] [place] [address], [place] [id number] 17 Nov, 2010 [facility] [address] [id number] [address] [place] [address], [place] [address] Mar, [facility] [address] [id number] [address] [place] [address], [place] [address] Mar, [facility] [address] [id number] [address] [place] [address], [place] [address] Feb, [facility] [address] [id number] [address] [place] [address], [place] [id number] 15 Feb, 2010 [facility] [address] [id number] [address] [place] [address], [place] [address] Jan, [facility] [address] [id number] [address] [place] [address], [place] [address] Jan, [facility] [address] [id number] [address] [place] [address], [place] [address] Sep, [facility] [address] [id number] [address] [place] [address], [place] [address] 16 May, 2009 [facility] [address] [id number] [address] [place] [address], [place] [address] Apr, [facility] [address] [id number] [address] [place] [address], [place] [address] Mar, [facility] [address] [id number] [address] [place] [address], [place] [id number] 15 Feb, 2009 [facility] [address] [id number] [address] [place] [address], [place] [address] Feb, [facility] [address] [facility] [id number] [address] [place] [phone] Feb, [facility] [address] [facility] [id number] [address] [place] [phone] 22 Jan, 2009 [facility] [address] [facility] [id number] [address] [place] [phone] Jan, [facility] [address] [facility] [id number] [address] [place] [id number] Jan, [facility] [address] [facility] [id number] [address] [place] [phone] Jan, [facility] [address] [facility] [id number] [address] [place] [phone] August, IMMUNIZATIONS No Known Immunizations SOCIAL HISTORY [...] age 6 Hospitalization History surgery Hospitalization History [facility], [place] tie treatment few times for BH
--- OUTSIDE RECORDS SUMMARY | 2019-09-29 10:30 | XMS REPORT ---
Author Author Cameron ALANIZ [facility] Address [address] [place] [address] Care Team Providers Care Crime Scene Specialist Name Role Phone JEET ALANIZ Unavailable PROBLEMS Type Condition ICD9-CM Code TAE81-ST Code Onset Dates Condition S tatus SNOMED Code Problem Open-angle glaucoma of both eyes, unspecified glaucoma stage, unspecified open-angle glaucoma type H40.10X0 Acti ve 57738496 Problem Adjustment disorder, unspecified type F43.20 Active 33697887 Problem Obstructive sleep apnea G47.33 Active 32537331 Problem Hypertensive retinopathy of both eyes H35.033 Active 5012517 Problem Type 2 diabetes mellitus with complication E11.8 Active 23460225 Problem Essential hypertension I10 Active 10966923 Problem Depression F32.9 Active 19180870 Problem Intermittent explosive disorder F63.81 Active 60742350 Problem Intermittent explosive disorder in adult F63.81 Active 52434056 Problem Bipolar disorder, unspecified F31.9 Active 59181753 Problem Mild intellectual disability F70 A ctive 74540081 Problem Other specified urinary incontinence N39.498 Active 620713841 Problem Bipolar disorder, in partial remission, most rec ent episode manic F31.73 Active 09387374 Problem 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 Active 65398886 Problem Type 2 diabetes mellitus wit h diabetic neuropathy, unspecified whether rat exterminator insulin use E11.40 Active 883856 140214155 Problem Diabetes E11.9 Active 60321140 Problem Reactive airway disease, unspecified asthma justin rity, uncomplicated J45.909 Active 387003370013 Problem Reactive airway disease, mild intermittent, uncomplicated J45.20 Active 207005497 Problem Gastroesophageal reflux disease without esophagitis K21.9 Active 108002930 Problem Other diabetic neurological complication associated with type 2 diabetes mellitus E11.49 Active 532545212 Problem Neuropathy G62.9 Active [id number] ALLERGIES No Information ENCOUNTERS Encounter Location Date Diagnosis [facility] [address] [id number] [address] [place] [phone] Oct, [facility] [address] [id number] [address] [place] [phone] August, [facility] [address] [id number] [address] [place] [phone] Jul, Type 2 diabetes mellitus wit h diabetic neuropathy, unspecified whether snf insulin use E11.40 and Colon cancer screening Z12.11 [facility] [address] [id number] [address] [place] [id number] 10 Jul, 2019 Type 2 diabetes mellitus wit h diabetic neuropathy, unspecified whether snf insulin use E11.40 and Tinea pedis, unspecified laterality B35.3 [facility] [address] [id number] [address] [place] [phone] 10 Jun, 2019 [facility] [address] [id number] [address] [place] [phone] Jun, [facility] [address] [id number] [address] [place] [phone] 04 Jun, 2019 Dysuria R30.0 [facility] [address] [id number] [address] [place] [id number] 02 Jun, 2019 [facility] [address] [id number] [address] [place] [id number] 20 May, 2019 Influenza J11.1 [facility] [address] [place] [id number] [address] [place] [id number] 13 May, 2019 Intermittent explosive disor salvatore in adult F63.81 [facility] [address] [id number] [address] [place] [id number] 12 May, 2019 [facility] [address] [id number] [address] [place] [phone] Apr, Intermittent explosive disor salvatore in adult F63.81 ; Bipolar disorder, unspecified F31.9 and Mild intellectual disability F70 [facility] [id number] [place] [phone] Apr, Oral health maintenance stat us requiring routine preventive dental care K08.9 [facility] [address] [id number] [address] [place] [id number] 20 Apr, 2019 Type 2 diabetes mellitus wit h complication E11.8 ; History of test for hearing Z92.89 ; Colon cancer screening Z12.11 ; Other specified urinary incontinence N39.498 and Impacted cerumen, right ear H61.21 [facility] [address] [id number] [address] [place] [phone] Apr, Onychomycosis B35.1 ; Other diabetic neurological complication associated with type 2 diabetes mellitus E11.49 and Tinea pedis of both feet B35.3 [facility] [address] [id number] [address] [place] [phone] Feb, [facility] [address] [id number] [address] [place] [phone] Jan, [facility] [address] [id number] [address] [place] [phone] Jan, [facility] [address] [id number] [address] [place] [phone] Jan, [facility] [address] [id number] [address] [place] [phone] Jan, [facility] [address] [id number] [address] [place] [phone] Jan, [facility] [address] [id number] [address] [place] [phone] Jan, [facility] [address] [id number] [address] [place] [phone] Jan, [facility] [address] [id number] [address] [place] [phone] Jan, Anemia D64.9 [facility] [id number] [place] [id number] 04 Jan, 2019 Dental examination Z01.20 an d Oral health maintenance status requiring routine preventive dental care K08.9 [place] [address] [place] [id number] [address] [place] [phone] Jan, Onychomycosis B35.1 and Othe r diabetic neurological complication associated with type 2 diabetes mellitus E11.49 [place] [address] [place] [id number] [address] [place] [phone] Jan, Anemia D64.9 [place] [address] [place] [id number] [address] [place] [phone] Jan, [place] [address] [place] [id number] [address] [place] [phone] Dec, Urinary tract infection with out hematuria, site unspecified N39.0 [place] [address] [place] [id number] [address] [place] [phone] Dec, Type 2 diabetes mellitus wit h complication E11.8 ; Urinary tract infection without hematuria, site unspecified N39.0 ; Impacted cerumen of both ears H61.23 ; Encounter for immunization Z23 and Hyponatremia E87.1 [place] [address] [place] [id number] [address] [place] [phone] Dec, Intermittent explosive disor salvatore in adult F63.81 ; Dysuria R30.0 ; Type 2 diabetes mellitus with complication E11.8 ; Bipolar disorder, unspecified F31.9 and Mild intellectual disability F70 [place] [address] [place] [id number] [address] [place] [phone] Dec, Dysuria R30.0 [place] [address] [place] [id number] [address] [place] [address] Dec, Intermittent explosive disor salvatore in adult F63.81 ; Bipolar disorder, unspecified F31.9 and Mild intellectual disability F70 [place] [address] [place] [id number] [address] [place] [phone] Nov, [facility] [address] [id number] [address] [place] [phone] Oct, [facility] [address] [facility] [id number] [place] [phone] Oct, Oral health maintenance stat us requiring routine preventive dental care K08.9 [facility] [address] [id number] [address] [place] [id number] August, Intermittent explosive disor salvatore in adult F63.81 ; Bipolar disorder, unspecified F31.9 and Mild intellectual disability F70 [facility] [address] [facility] [id number] [address] [place] [address] [id number] August, Dental caries K02.9 [facility] [address] [id number] [address] [place] [phone] Jul, Onychomycosis B35.1 ; Other diabetic neurological complication associated with type 2 diabetes mellitus E11.49 and Tinea pedis of both feet B35.3 [facility] [address] [id number] [address] [place] [address] [id number] Jul, Caries K02.9 [facility] [address] [id number] [address] [place] [phone] Jul, Type 2 diabetes mellitus wit h complication E11.8 ; Tobacco abuse Z72.0 and Bipolar disorder, unspecified F31.9 [facility] [address] [id number] [address] [place] [phone] Jun, [facility] [address] [id number] [address] [place] [address] [phone] Jun, Dental examination Z01.20 an d Oral health maintenance status requiring routine preventive dental care K08.9 [facility] [address] [id number] [address] [place] [phone] May, Bilateral impacted cerumen H 61.23 [facility] [address] [id number] [address] [place] [phone] Apr, Bipolar disorder, unspecifie d F31.9 ; Intermittent explosive disorder in adult F63.81 ; Type 2 diabetes mellitus with complication E11.8 ; Tobacco abuse Z72.0 and Colon cancer screening Z12.11 [facility] [address] [place] [address] Apr, Onychomycosis B35.1 and Othe r diabetic neurological complication associated with type 2 diabetes mellitus E11.49 [facility] [address] [place] [id number] [address] [place] [phone] Apr, Intermittent explosive disor salvatore in adult F63.81 ; Bipolar disorder, unspecified F31.9 and Mild intellectual disability F70 [place] [address] [place] [id number] [address] [place] [phone] 03 Mar, 2018 Diabetes E11.9 [facility] [address] [id number] [address] [place] [phone] Jan, Encounter for immunization Z 23 [facility] [address] [place] [phone] Jan, Tinea pedis of both feet B35 .3 ; Other diabetic neurological complication associated with type 2 diabetes mellitus E11.49 and Onychomycosis B35.1 [facility] [address] [place] [id number] [address] [place] [address] Nov, Type 2 diabetes mellitus wit h complication E11.8 [place] [address] [place] [phone] Nov, [facility] [address] [place] [id number] [address] [place] [phone] Oct, Intermittent explosive disor salvatore in adult F63.81 ; Bipolar disorder, unspecified F31.9 and Mild intellectual disability F70 [facility] [address] [place] [id number] [address] [place] [phone] Oct, [facility] [address] [facility] [id number] [address] [place] [address] [id number] Oct, Dental examination Z01.20 [facility] [address] [id number] [address] [place] [phone] 06 Oct, 2017 Onychomycosis B35.1 and Othe r diabetic neurological complication associated with type 2 diabetes mellitus E11.49 [facility] [address] [id number] [address] [place] [phone] Sep, Type 2 diabetes mellitus wit h complication E11.8 and Colon cancer screening Z12.11 [facility] [address] [place] [id number] [address] [place] [id number] 18 Sep, 2017 Type 2 diabetes mellitus wit h complication E11.8 ; Colon cancer screening Z12.11 and Neuropathy G62.9 [place] [address] [place] [id number] [address] [place] [phone] August, Diabetes E11.9 [facility] [address] [place] [id number] [address] [place] [address] [id number] Jul, Dental examination Z01.20 [place] [id number] [place] [phone] 27 May, 2017 Mild intellectual disability F70 [place] [address] [place] [id number] [address] [place] [phone] 07 May, 2017 Mild intellectual disability F70 ; High risk medication use Z79.899 ; Intermittent explosive disorder in adult F63.81 and Bipolar disorder, unspecified F31.9 [place] [address] [place] [phone] May, [place] [address] [place] [id number] [address] [place] [phone] May, [place] [address] [place] [id number] [address] [place] [address] Apr, Type 2 diabetes mellitus wit h complication E11.8 ; Mild intellectual disability F70 ; Gastroesophageal reflux disease without esophagitis K21.9 ; Reactive airway disease, mild intermittent, uncomplicated J45.20 and Tobacco abuse Z72.0 [place] [address] [place] [address] Apr, High risk medication use Z79 .899 ; Mild intellectual disability F70 ; Intermittent explosive disorder in adult F63.81 and Bipolar disorder, unspecified F31.9 [facility] [address] [id number] [address] [place] [address] [id number] Mar, Dental examination Z01.20 [facility] [address] [id number] [address] [place] [address] [id number] 27 Mar, 2017 Encounter for dental exam an d cleaning w/o abnormal findings Z01.20 [facility] [address] [id number] [address] [place] [id number] 12 Jan, 2017 [facility] [address] [id number] [address] [place] [phone] 11 Jan, 2017 [facility] [address] [id number] [address] [place] [phone] 10 Jan, 2017 Mild intellectual disability F70 ; Bipolar disorder, unspecified F31.9 and Intermittent explosive disorder in adult F63.81 [facility] [address] [id number] [address] [place] [phone] 02 Jan, 2017 Diabetes E11.9 [facility] [address] [id number] [address] [place] [address] [id number] 13 Dec, 2016 Encounter for dental examina tion and cleaning without abnormal findings Z01.20 [facility] [address] [id number] [address] [place] [id number] 12 Dec, 2016 Bipolar disorder, unspecifie d F31.9 ; Intermittent explosive disorder in adult F63.81 and Mild intellectual disability F70 [facility] [address] [id number] [address] [place] [phone] Nov, Diabetes E11.9 [facility] [address] [id number] [address] [place] [phone] Nov, [facility] [address] [id number] [address] [place] [id number] 14 Nov, 2016 Diabetes E11.9 and Colon can cer screening Z12.[address] [id number] [id number] 21 Sep, 2016 Dental examination Z01.20 [facility] [address] [id number] [address] [place] [address] [id number] 21 Sep, 2016 Encounter for dental examina tion and cleaning without abnormal findings Z01.20 [facility] [address] [id number] [address] [place] [phone] 13 Sep, 2016 Bipolar disorder, unspecifie d F31.9 [facility] [address] [id number] [address] [place] [id number] 12 Sep, 2016 Bipolar disorder, unspecifie d F31.9 [facility] [address] [id number] [address] [place] [phone] Jul, [facility] [address] [id number] [address] [place] [phone] Jul, Type 2 diabetes mellitus wit h complication E11.[address] [id number] [id number] 15 Jun, 2016 Dental examination Z01.20 [facility] [address] [id number] [address] [place] [address] [id number] 15 Jun, 2016 Encounter for dental examina tion and cleaning without abnormal findings Z01.20 [facility] [address] [id number] [address] [place] [phone] 18 Apr, 2016 Sports physical Z02.5 [facility] [address] [id number] [address] [place] [phone] 14 Mar, 2016 Bipolar disorder, in partial remission, most recent episode manic F31.73 and Intermittent explosive disorder in adult F63.81 [facility] [address] [id number] [address] [place] [id number] 08 Mar, 2016 [facility] [address] [id number] [address] [place] [phone] Mar, Diabetes E11.9 [facility] [address] [id number] [address] [place] [address] [id number] Feb, Encounter for dental examina tion and cleaning without abnormal findings Z01.20 [facility] [address] [id number] [address] [place] [id number] 22 Dec, 2015 Nocturnal hypoxemia G47.34 a nd Encounter for immunization Z23 [facility] [address] [id number] [address] [place] [phone] 15 Dec, 2015 [facility] [address] [id number] [address] [place] [phone] Dec, [facility] [address] [id number] [address] [place] [phone] Dec, Bipolar disorder, unspecifie d F31.9 [facility] [address] [facility] [id number] [place] [address] [id number] Oct, Encounter for dental examina tion and cleaning without abnormal findings Z01.20 [place] [id number] [facility] [id number] [place] [address] [id number] Oct, Dental examination Z01.20 [facility] [address] [id number] [address] [place] [phone] Oct, Diabetes E11.9 [facility] [address] [id number] [address] [place] [phone] Oct, Diabetes E11.9 ; Reactive ai rway disease, mild intermittent, uncomplicated J45.20 and Tobacco abuse Z72.0 [facility] [address] [id number] [address] [place] [phone] Sep, Bipolar disorder, unspecifie d F31.9 and Depression F32.9 [facility] [address] [id number] [address] [place] [phone] Sep, [facility] [address] [id number] [address] [place] [phone] August, Tinea pedis of both feet B35 .3 and DM w/o complication type II, uncontrolled E11.65 [place] [address] [id number] Jul, [place] [address] [id number] Jul, [place] [address] [address] Jul, Obstructive sleep apnea G47. 33 [place] [address] [address] Jun, Diabetes E11.9 [place] [address] [address] Jun, [place] [address] [phone] Jun, [place] [address] [address] Jun, Bipolar disorder, unspecifie d F31.9 and Mental retardation F79 [place] [address] [address] Apr, [place] [address] [address] Feb, Diabetes E11.9 ; Encounter f or immunization Z23 ; Cough R05 and Nicotine abuse Z72.0 [place] [address] [address] Jan, Bipolar disorder, unspecifie d F31.9 and Diabetes mellitus without mention of complication, type II or unspecified type, uncontrolled 250.02 [place] [address] [address] Jan, [place] [address] [id number] Dec, Reactive airway disease 493. 90 and Enuresis 788.30 [facility] [address] [id number] [address] [place] [phone] Dec, [facility] [address] [id number] [address] [place] [phone] Nov, [facility] [address] [id number] [address] [place] [phone] Nov, [facility] [address] [id number] [address] [place] [phone] Nov, Annual physical exam V70.0 ; Urinary incontinence 788.30 ; Diabetes 250.00 and Hypertension 401.9 [facility] [address] [id number] [address] [place] [phone] Oct, Diabetes mellitus without me ntion of complication, type II or unspecified type, uncontrolled 250.02 [facility] [address] [id number] [address] [place] [phone] Oct, Diabetes mellitus without me ntion of complication, type II or unspecified type, uncontrolled 250.02 [facility] [address] [id number] [address] [place] [phone] Oct, Diabetes mellitus without me ntion of complication, type II or unspecified type, uncontrolled 250.02 [facility] [address] [place] [id number] [address] [place] [phone] Oct, [facility] [address] [id number] [address] [place] [phone] Oct, [facility] [address] [id number] [address] [place] [phone] Oct, Bipolar disorder, unspecifie d 296.80 [facility] [address] [id number] [address] [place] [address] [id number] Sep, Dental examination V72.2 [facility] [address] [id number] [address] [place] [phone] August, [facility] [address] [place] [id number] [address] [place] [address] [id number] August, Dental examination V72.2 [facility] [address] [id number] [address] [place] [phone] August, [facility] [address] [id number] [address] [place] [address], [place] [phone] 14 Jul, 2014 [facility] [address] [id number] [address] [place] [phone] Jul, [facility] [address] [id number] [address] [place] [address], [place] [phone] 17 Jun, 2014 [facility] [address] [id number] [address] [place] [address], [place] [phone] Jun, [facility] [address] [id number] [address] [place] [phone] Jun, [facility] [address] [id number] [address] [place] [phone] Jun, [facility] [address] [id number] [address] [place] [phone] May, [facility] [address] [id number] [address] [place] [phone] 23 May, 2014 [facility] [address] [id number] [address] [place] [id number] 16 May, 2014 [facility] [address] [id number] [address] [place] [id number] 16 May, 2014 [facility] [address] [id number] [address] [place] [id number] May, [facility] [address] [id number] [address] [place] [id number] 16 May, 2014 [facility] [address] [id number] [address] [place], [place] [id number] 16 May, 2014 [facility] [address] [id number] [address] [place] [id number] May, 2014 [facility] [address] [id number] [address] [place] [address], [place] [id number] May, 2014 [facility] [address] [id number] [address] [place] [address], [place] [id number] May, 2014 [facility] [address] [id number] [address] [place] [address], [place] [address] May, 2014 [facility] [address] [id number] [address] [place] [address], [place] [id number] May, 2014 [facility] [address] [id number] [address] [place] [address], [place] [id number] May, 2014 [facility] [address] [id number] [address] [place] [address], [place] [id number] May, 2014 [facility] [address] [id number] [address] [place] [address], [place] [id number] May, 2014 [facility] [address] [id number] [address] [place] [address], [place] [id number] Apr, [facility] [address] [id number] [address] [place] [address], [place] [id number] Apr, [facility] [address] [id number] [address] [place] [address], [place] [id number] Apr, [facility] [address] [id number] [address] [place] [address], [place] [id number] Apr, [facility] [address] [id number] [address] [place] [id number] Apr, [facility] [address] [id number] [address] [place] [id number] Apr, [facility] [address] [id number] [address] [place] [address], [place] [id number] Apr, [facility] [address] [id number] [address] [place] [id number] Apr, [facility] [address] [id number] [address] [place] [address], [place] [id number] Apr, [facility] [address] [id number] [address] [place] [address], [place] [id number] Apr, [facility] [address] [id number] [address] [place] [address], [place] [id number] Apr, [facility] [address] [id number] [address] [place] [address], [place] [id number] Apr, [facility] [address] [id number] [address] [place] [address], [place] [id number] Mar, [facility] [address] [id number] [address] [place] [address], [place] [id number] Mar, [facility] [address] [id number] [address] [place] [address], [place] [id number] Mar, [facility] [address] [id number] [address] [place] [address], [place] [id number] Mar, [facility] [address] [id number] [address] [place] [address], [place] [id number] Mar, [facility] [address] [id number] [address] [place] [address], [place] [id number] Mar, [facility] [address] [id number] [address] [place] [address], [place] [id number] Feb, [facility] [address] [id number] [address] [place] [address], [place] [address] Feb, [facility] [address] [id number] [address] [place] [address], [place] [id number] Feb, [facility] [address] [id number] [address] [place] [address], [place] [id number] 13 Feb, 2014 [facility] [address] [id number] [address] [place] [address], [place] [id number] 14 Jan, 2014 [facility] [address] [id number] [address] [place] [address], [place] [id number] 14 Jan, 2014 [facility] [address] [id number] [address] [place] [address], [place] [id number] 14 Jan, 2014 [facility] [address] [id number] [address] [place] [address], [place] [id number] Jan, [facility] [address] [id number] [address] [place] [address], [place] [id number] Dec, [facility] [address] [id number] [address] [place] [address], [place] [id number] Dec, [facility] [address] [id number] [address] [place] [address], [place] [id number] 15 Dec, 2013 [facility] [address] [id number] [address] [place] [address], [place] [id number] Dec, [facility] [address] [id number] [address] [place] [address], [place] [id number] Nov, [facility] [address] [id number] [address] [place] [address], [place] [id number] Nov, [facility] [address] [id number] [address] [place] [address], [place] [id number] Nov, [facility] [address] [id number] [address] [place] [address], [place] [id number] Nov, [facility] [address] [id number] [address] [place] [address], [place] [id number] Nov, [facility] [address] [id number] [address] [place] [address], [place] [address] Nov, [facility] [address] [id number] [address] [place] [address], [place] [id number] Nov, [facility] [address] [id number] [address] [place] [address], [place] [id number] Oct, [facility] [address] [id number] [address] [place] [address], [place] [id number] Oct, [facility] [address] [id number] [facility] [address] Oct, [facility] [address] [id number] [address] [place] [address], [place] [id number] Oct, [facility] [address] [id number] [address] [place] [address], [place] [id number] Oct, [facility] [address] [id number] [address] [place] [address], [place] [id number] Oct, [facility] [address] [id number] [address] [place] [address], [place] [address] Oct, [facility] [address] [id number] [address] [place] [address], [place] [id number] Sep, [facility] [address] [id number] [address] [place] [address], [place] [id number] Sep, [facility] [address] [id number] [address] [place] [address], [place] [id number] Sep, [facility] [address] [id number] [address] [place] [address], [place] [id number] Sep, [facility] [address] [id number] [address] [place] [address], [place] [id number] Sep, [facility] [address] [id number] [address] [place] [address], [place] [address] Jul, [facility] [address] [id number] [address] [place] [address], [place] [address] Jul, [facility] [address] [id number] [address] [place] [address], [place] [id number] Jul, [facility] [address] [id number] [address] [place] [address], [place] [id number] Jul, [facility] [address] [id number] [address] [place] [address], [place] [id number] Jul, [facility] [address] [id number] [address] [place] [address], [place] [id number] Jul, [facility] [address] [id number] [facility] [address] Jul, [facility] [address] [id number] [address] [place] [address], [place] [id number] Jul, [facility] [address] [id number] [address] [place] [address], [place] [id number] Jul, [facility] [address] [id number] [address] [place] [address], [place] [id number] Jul, [facility] [address] [id number] [address] [place] [address], [place] [id number] Jul, [facility] [address] [id number] [address] [place] [address], [place] [id number] Jul, [facility] [address] [id number] [address] [place] [address], [place] [id number] Jun, [facility] [address] [id number] [address] [place] [address], [place] [id number] Jun, [facility] [address] [id number] [address] [place] [address], [place] [address] Jun, [facility] [address] [id number] [address] [place] [address], [place] [address] Jun, [facility] [address] [id number] [address] [place] [address], [place] [id number] Jun, [facility] [address] [id number] [address] [place] [address], [place] [address] Jun, [facility] [address] [id number] [address] [place] [address], [place] [address] Jun, [facility] [address] [id number] [address] [place] [address], [place] [id number] Jun, [facility] [address] [id number] [address] [place] [address], [place] [address] May, [facility] [address] [id number] [address] [place] [id number] May, [facility] [address] [id number] [address] [place] [address], [place] [address] May, [facility] [address] [id number] [address] [place] [address], [place] [id number] May, [facility] [address] [id number] [address] [place] [address], [place] [id number] May, [facility] [address] [id number] [address] [place] [address], [place] [address] May, [facility] [address] [id number] [address] [place] [address], [place] [id number] May, [facility] [address] [id number] [address] [place] [address], [place] [address] May, [facility] [address] [id number] [address] [place] [address], [place] [id number] Apr, [facility] [address] [id number] [address] [place] [address], [place] [address] Apr, [facility] [address] [id number] [address] [place] [address], [place] [id number] Apr, [facility] [address] [id number] [address] [place] [address], [place] [address] Apr, [facility] [address] [id number] [address] [place] [address], [place] [id number] Mar, [facility] [address] [id number] [address] [place] [address], [place] [id number] Mar, [facility] [address] [id number] [address] [place] [address], [place] [id number] Mar, [facility] [address] [id number] [address] [place] [address], [place] [id number] Feb, [facility] [address] [id number] [address] [place] [address], [place] [id number] Feb, [facility] [address] [id number] [address] [place] [address], [place] [id number] Feb, [facility] [address] [id number] [address] [place] [address], [place] [id number] Feb, [facility] [address] [id number] [address] [place] [address], [place] [id number] Feb, [facility] [address] [id number] [address] [place] [address], [place] [id number] Feb, [facility] [address] [id number] [address] [place] [address], [place] [id number] Jan, [facility] [address] [id number] [address] [place] [address], [place] [id number] Jan, [facility] [address] [id number] [address] [place] [address], [place] [address] Jan, [facility] [address] [id number] [address] [place] [id number] Jan, [facility] [address] [id number] [address] [place] [address], [place] [address] Jan, [facility] [address] [id number] [address] [place] [id number] Jan, [facility] [address] [id number] [address] [place] [id number] Jan, [facility] [address] [id number] [address] [place] [id number] 25 Dec, 2012 [facility] [address] [id number] [address] [place] [address], [place] [id number] 16 Sep2012 [facility] [address] [id number] [address] [place] [id number] 10 Sep2012 [facility] [address] [id number] [address] [place] [id number] 05 Sep2012 [facility] [address] [id number] [address] [place] [id number] Nov, [facility] [address] [id number] [address] [place] [address], [place] [id number] Nov, [facility] [address] [id number] [address] [place] [address], [place] [id number] Nov, [facility] [address] [id number] [address] [place] [address], [place] [id number] Nov, [facility] [address] [id number] [address] [place] [address], [place] [id number] Nov, [facility] [address] [id number] [address] [place] [address], [place] [address] Nov, [facility] [address] [id number] [address] [place] [address], [place] [id number] Nov, [facility] [address] [id number] [address] [place] [address], [place] [address] Oct, [facility] [address] [id number] [address] [place] [address], [place] [address] Oct, [facility] [address] [id number] [address] [place] [address], [place] [address] Oct, [facility] [address] [id number] [address] [place] [address], [place] [address] Oct, [facility] [address] [id number] [address] [place] [address], [place] [address] Oct, [facility] [address] [id number] [address] [place] [address], [place] [id number] Oct, [facility] [address] [id number] [address] [place] [address], [place] [id number] Oct, [facility] [address] [id number] [address] [place] [address], [place] [address] Oct, [facility] [address] [id number] [address] [place] [address], [place] [id number] Sep, [facility] [address] [id number] [place] [id number] August, [facility] [address] [id number] [address] [place] [address], [place] [id number] August, [facility] [address] [id number] [address] [place] [address], [place] [address] Jul, [facility] [address] [id number] [address] [place] [address], [place] [id number] Jul, [facility] [address] [id number] [address] [place] [address], [place] [id number] Jul, [facility] [address] [id number] [address] [place] [address], [place] [id number] Jul, [facility] [address] [id number] [address] [place] [address], [place] [address] Jul, [facility] [address] [id number] [address] [place] [address], [place] [id number] 17 Jul, 2012 [facility] [address] [id number] [address] [place] [address], [place] [id number] 16 Jul, 2012 [facility] [address] [id number] [address] [place] [address], [place] [address] Jun, [facility] [address] [id number] [address] [place] [address], [place] [id number] Jun, [facility] [address] [id number] [address] [place] [address], [place] [id number] Jun, [facility] [address] [id number] [address] [place] [address], [place] [address] Jun, [facility] [address] [id number] [address] [place] [address], [place] [address] Jun, [facility] [address] [id number] [address] [place] [address], [place] [id number] May, [facility] [address] [id number] [place] [address] 18 May, 2012 [facility] [address] [id number] [address] [place] [address], [place] [id number] 04 May, 2012 [facility] [address] [id number] [address] [place] [address], [place] [id number] 15 Apr, 2012 [facility] [address] [id number] [address] [place] [address], [place] [id number] 14 Apr, 2012 [facility] [address] [id number] [address] [place] [address], [place] [id number] 07 Apr, 2012 [facility] [address] [id number] [address] [place] [address], [place] [id number] Mar, [facility] [address] [id number] [address] [place] [address], [place] [id number] 31 Mar, 2012 [facility] [address] [id number] [address] [place] [address], [place] [id number] Mar, [facility] [address] [id number] [address] [place] [address], [place] [id number] Mar, [facility] [address] [id number] [address] [place] [address], [place] [id number] Mar, [facility] [address] [id number] [address] [place] [address], [place] [id number] Mar, [facility] [address] [id number] [address] [place] [address], [place] [id number] Feb, [facility] [address] [id number] [address] [place] [id number] Feb, [facility] [address] [id number] [address] [place] [address], [place] [id number] Jan, [facility] [address] [id number] [address] [place] [address], [place] [id number] Jan, [facility] [address] [id number] [address] [place] [address], [place] [id number] 25 Dec, 2011 [facility] [address] [id number] [address] [place] [address], [place] [id number] Nov, [facility] [address] [id number] [address] [place] [address], [place] [id number] Nov, [facility] [address] [id number] [address] [place] [address], [place] [id number] Nov, [facility] [address] [id number] [address] [place] [address], [place] [id number] Nov, [facility] [address] [id number] [address] [place] [address], [place] [id number] Oct, [facility] [address] [id number] [address] [place] [address], [place] [id number] Oct, [facility] [address] [id number] [address] [place] [address], [place] [id number] Oct, [facility] [address] [id number] [address] [place] [address], [place] [id number] Sep, [facility] [address] [id number] [address] [place] [address], [place] [id number] Sep, [facility] [address] [id number] [address] [place] [address], [place] [id number] Sep, [facility] [address] [id number] [address] [place] [address], [place] [id number] August, [facility] [address] [id number] [address] [place] [address], [place] [id number] August, [facility] [address] [id number] [address] [place] [address], [place] [id number] Jul, [facility] [address] [id number] [address] [place] [address], [place] [id number] 24 Jul, 2011 [facility] [address] [id number] [address] [place] [address], [place] [id number] Jul, [facility] [address] [id number] [address] [place] [address], [place] [id number] Jul, [facility] [address] [id number] [address] [place] [address], [place] [id number] Jun, [facility] [address] [id number] [address] [place] [address], [place] [id number] May, [facility] [address] [id number] [address] [place] [address], [place] [id number] Apr, [facility] [address] [id number] [address] [place] [address], [place] [id number] Apr, [facility] [address] [id number] [address] [place] [address], [place] [id number] Apr, [facility] [address] [id number] [address] [place] [address], [place] [id number] Apr, [facility] [address] [id number] [address] [place] [address], [place] [id number] Apr, [facility] [address] [id number] [address] [place] [address], [place] [id number] Apr, [facility] [address] [id number] [address] [place] [address], [place] [id number] Mar, [facility] [address] [id number] [address] [place] [address], [place] [id number] Mar, [facility] [address] [id number] [address] [place] [address], [place] [id number] Feb, [facility] [address] [id number] [address] [place] [id number] Feb, [facility] [address] [id number] [address] [place] [address], [place] [id number] Feb, [facility] [address] [id number] [address] [place] [address], [place] [id number] 09 Feb, 2011 [facility] [address] [id number] [address] [place] [address], [place] [id number] Jan, [facility] [address] [id number] [address] [place] [address], [place] [id number] 18 Jan, 2011 [facility] [address] [id number] [address] [place] [address], [place] [id number] 18 Jan, 2011 [facility] [address] [id number] [address] [place] [address], [place] [id number] 18 Jan, 2011 [facility] [address] [id number] [address] [place] [address], [place] [id number] 17 Nov, 2010 [facility] [address] [id number] [address] [place] [address], [place] [id number] 03 Mar, 2010 [facility] [address] [id number] [address] [place] [address], [place] [id number] Mar, [facility] [address] [id number] [address] [place] [address], [place] [id number] 30 Feb, 2010 [facility] [address] [id number] [address] [place] [address], [place] [id number] 15 Feb, 2010 [facility] [address] [id number] [address] [place] [address], [place] [id number] Jan, [facility] [address] [id number] [address] [place] [address], [place] [id number] Jan, [facility] [address] [id number] [address] [place] [address], [place] [id number] Sep, [facility] [address] [id number] [address] [place] [address], [place] [id number] 16 May, 2009 [facility] [address] [id number] [address] [place] [address], [place] [id number] Apr, [facility] [address] [id number] [address] [place] [address], [place] [id number] Mar, [facility] [address] [id number] [address] [place] [address], [place] [id number] 15 Feb, 2009 [facility] [address] [id number] [address] [place] [id number] Feb, [facility] [address] [id number] [address] [place] [id number] 10 Feb, 2009 [facility] [address] [id number] [address] [place] [id number] 22 Jan, 2009 [facility] [address] [id number] [address] [place] [id number] 13 Jan, 2009 [facility] [address] [id number] [address] [place] [id number] 13 Jan, 2009 [facility] [address] [id number] [address] [place] [id number] 11 Jan, 2009 [facility] [address] [id number] [address] [place] [id number] August, IMMUNIZATIONS No Known Immunizations SOCIAL HISTORY [...] age 6 Hospitalization History surgery Hospitalization History [facility], inco tie treatment few times for BH
--- OUTSIDE RECORDS SUMMARY | 2019-09-29 10:30 | XMS REPORT ---
Author Author Cameron Kothari [facility] Address [address] [place] [address] Care Team Providers Care Escalator Constructor Name Role Phone JULISA Kothari Unavailable PROBLEMS Type Condition ICD9-CM Code CFK88-GU Code Onset Dates Condition S tatus SNOMED Code Problem Open-angle glaucoma of both eyes, unspecified glaucoma stage, unspecified open-angle glaucoma type H40.10X0 Acti ve 88806009 Problem Adjustment disorder, unspecified type F43.20 Active 99222954 Problem Obstructive sleep apnea G47.33 Active 72393640 Problem Hypertensive retinopathy of both eyes H35.033 Active 6169089 Problem Type 2 diabetes mellitus with complication E11.8 Active 72101208 Problem Essential hypertension I10 Active 86861126 Problem Depression F32.9 Active 78769922 Problem Intermittent explosive disorder F63.81 Active 04758549 Problem Intermittent explosive disorder in adult F63.81 Active 17436092 Problem Bipolar disorder, unspecified F31.9 Active 47586715 Problem Mild intellectual disability F70 A ctive 79482347 Problem Other specified urinary incontinence N39.498 Active 111292373 Problem Bipolar disorder, in partial remission, most rec ent episode manic F31.73 Active 60383306 Problem 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 Active 51705716 Problem Type 2 diabetes mellitus wit h diabetic neuropathy, unspecified whether termite technician insulin use E11.40 Active 444184 656326307 Problem Diabetes E11.9 Active 09256478 Problem Reactive airway disease, unspecified asthma justin rity, uncomplicated J45.909 Active 149102244246 Problem Reactive airway disease, mild intermittent, uncomplicated J45.20 Active 390056256 Problem Gastroesophageal reflux disease without esophagitis K21.9 Active 184953211 Problem Other diabetic neurological complication associated with type 2 diabetes mellitus E11.49 Active 212217496 Problem Neuropathy G62.9 Active 638277677 ALLERGIES No Information ENCOUNTERS Encounter Location Date Diagnosis [facility] [address] [facility] [id number] [address] [place] [id number] Oct, [facility] [address] [facility] [id number] [address] [place] [phone] August, [facility] [address] [facility] [id number] [address] [place] [phone] Jul, Type 2 diabetes mellitus wit h diabetic neuropathy, unspecified whether fci insulin use E11.40 and Colon cancer screening Z12.11 [facility] [address] [facility] [id number] [address] [place] [phone] 10 Jul, 2019 Type 2 diabetes mellitus wit h diabetic neuropathy, unspecified whether fci insulin use E11.40 and Tinea pedis, unspecified laterality B35.3 [facility] [address] [place] [id number] [address] [place] [id number] 10 Jun, 2019 [facility] [address] [facility] [id number] [address] [place] [phone] Jun, [facility] [address] [facility] [id number] [address] [place] [id number] 04 Jun, 2019 Dysuria R30.0 [facility] [address] [facility] [id number] [address] [place] [id number] 02 Jun, 2019 [facility] [address] [place] [id number] [address] [place] [id number] 20 May, 2019 Influenza J11.1 [facility] [address] [facility] [id number] [address] [place] [id number] 13 May, 2019 Intermittent explosive disor salvatore in adult F63.81 [facility] [address] [place] [id number] [address] [place] [id number] 12 May, 2019 [facility] [address] [facility] [id number] [address] [place] [phone] Apr, Intermittent explosive disor salvatore in adult F63.81 ; Bipolar disorder, unspecified F31.9 and Mild intellectual disability F70 [facility] [id number] [place] [id number] Apr, Oral health maintenance stat us requiring routine preventive dental care K08.9 [facility] [address] [id number] [address] [place] [id number] 20 Apr, 2019 Type 2 diabetes mellitus wit h complication E11.8 ; History of test for hearing Z92.89 ; Colon cancer screening Z12.11 ; Other specified urinary incontinence N39.498 and Impacted cerumen, right ear H61.21 [facility] [address] [id number] [address] [place] [phone] 10 Apr, 2019 Onychomycosis B35.1 ; Other diabetic neurological complication associated with type 2 diabetes mellitus E11.49 and Tinea pedis of both feet B35.3 [facility] [address] [id number] [address] [place] [phone] Feb, [facility] [address] [id number] [address] [place] [phone] Jan, [facility] [address] [id number] [address] [place] [phone] Jan, [facility] [address] [id number] [address] [place] [id number] Jan, [facility] [address] [id number] [address] [place] [phone] Jan, [facility] [address] [id number] [address] [place] [phone] Jan, [facility] [address] [id number] [address] [place] [phone] Jan, [facility] [address] [id number] [address] [place] [id number] Jan, [facility] [address] [facility] [id number] [address] [place] [phone] 07 Jan, 2019 Anemia D64.9 [facility] [id number] [place] [phone] 04 Jan, 2019 Dental examination Z01.20 an d Oral health maintenance status requiring routine preventive dental care K08.9 [place] [id number] [facility] [id number] [address] [place] [phone] Jan, Onychomycosis B35.1 and Othe r diabetic neurological complication associated with type 2 diabetes mellitus E11.49 [place] [address] [facility] [id number] [address] [place] [phone] Jan, Anemia D64.9 [facility] [address] [facility] [id number] [address] [place] [phone] Jan, [place] [address] [place] [id number] [address] [place] [phone] Dec, Urinary tract infection with out hematuria, site unspecified N39.0 [place] [address] [place] [id number] [address] [place] [phone] Dec, Type 2 diabetes mellitus wit h complication E11.8 ; Urinary tract infection without hematuria, site unspecified N39.0 ; Impacted cerumen of both ears H61.23 ; Encounter for immunization Z23 and Hyponatremia E87.1 [place] [address] [facility] [id number] [address] [place] [id number] Dec, Intermittent explosive disor salvatore in adult F63.81 ; Dysuria R30.0 ; Type 2 diabetes mellitus with complication E11.8 ; Bipolar disorder, unspecified F31.9 and Mild intellectual disability F70 [place] [address] [facility] [id number] [address] [place] [address] Dec, Dysuria R30.0 [place] [address] [place] [id number] [address] [place] [phone] Dec, Intermittent explosive disor salvatore in adult F63.81 ; Bipolar disorder, unspecified F31.9 and Mild intellectual disability F70 [place] [address] [place] [id number] [address] [place] [id number] Nov, [facility] [address] [facility] [id number] [address] [place] [phone] Oct, [facility] [id number] [place] [id number] Oct, Oral health maintenance stat us requiring routine preventive dental care K08.9 [facility] [address] [facility] [id number] [address] [place] [id number] August, Intermittent explosive disor salvatore in adult F63.81 ; Bipolar disorder, unspecified F31.9 and Mild intellectual disability F70 [facility] [address] [id number] [address] [place] [address] [id number] August, Dental caries K02.9 [facility] [address] [facility] [id number] [address] [place] [id number] Jul, Onychomycosis B35.1 ; Other diabetic neurological complication associated with type 2 diabetes mellitus E11.49 and Tinea pedis of both feet B35.3 [facility] [address] [id number] [address] [place] [address] [id number] Jul, Caries K02.9 [facility] [address] [facility] [id number] [address] [place] [phone] Jul, Type 2 diabetes mellitus wit h complication E11.8 ; Tobacco abuse Z72.0 and Bipolar disorder, unspecified F31.9 [facility] [address] [facility] [id number] [address] [place] [phone] Jun, [facility] [address] [facility] [id number] [address] [place] [address] [id number] Jun, Dental examination Z01.20 an d Oral health maintenance status requiring routine preventive dental care K08.9 [facility] [address] [facility] [id number] [address] [place] [phone] May, Bilateral impacted cerumen H 61.23 [facility] [address] [facility] [id number] [address] [place] [id number] Apr, Bipolar disorder, unspecifie d F31.9 ; Intermittent explosive disorder in adult F63.81 ; Type 2 diabetes mellitus with complication E11.8 ; Tobacco abuse Z72.0 and Colon cancer screening Z12.11 [facility] [address] [place] [id number] [address] [place] [id number] Apr, Onychomycosis B35.1 and Othe r diabetic neurological complication associated with type 2 diabetes mellitus E11.49 [facility] [address] [place] [id number] [address] [place] [address] Apr, Intermittent explosive disor salvatore in adult F63.81 ; Bipolar disorder, unspecified F31.9 and Mild intellectual disability F70 [place] [address] [address] Mar, Diabetes E11.9 [facility] [address] [place] [id number] [address] [place] [address] Jan, Encounter for immunization Z 23 [facility] [address] [address] Jan, Tinea pedis of both feet B35 .3 ; Other diabetic neurological complication associated with type 2 diabetes mellitus E11.49 and Onychomycosis B35.1 [facility] [address] [place] [id number] [address] [place] [id number] Nov, Type 2 diabetes mellitus wit h complication E11.8 [facility] [address] [place] [id number] [address] [place] [phone] Nov, [facility] [address] [place] [id number] [address] [place] [address] Oct, Intermittent explosive disor salvatore in adult F63.81 ; Bipolar disorder, unspecified F31.9 and Mild intellectual disability F70 [facility] [id number] [place] [address] Oct, [facility] [address] [place] [id number] [address] [place] [address] [id number] 11 Alexis, 2018 Dental examination Z01.20 [facility] [address] [facility] [id number] [address] [place] [id number] 06 Oct, 2017 Onychomycosis B35.1 and Othe r diabetic neurological complication associated with type 2 diabetes mellitus E11.49 [facility] [address] [place] [id number] [address] [place] [id number] 19 Sep, 2017 Type 2 diabetes mellitus wit h complication E11.8 and Colon cancer screening Z12.11 [facility] [address] [place] [id number] [address] [place] [id number] 18 Sep, 2017 Type 2 diabetes mellitus wit h complication E11.8 ; Colon cancer screening Z12.11 and Neuropathy G62.9 [place] [address] [place] [id number] [address] [place] [id number] August, Diabetes E11.9 [facility] [id number] [place] [address] [id number] Jul, Dental examination Z01.20 [facility] [address] [place] [id number] [address] [place] [id number] 27 May, 2017 Mild intellectual disability F70 [place] [address] [address] 07 May, 2017 Mild intellectual disability F70 ; High risk medication use Z79.899 ; Intermittent explosive disorder in adult F63.81 and Bipolar disorder, unspecified F31.9 [place] [address] [place] [phone] May, [place] [address] [place] [id number] [address] [place] [address] May, [place] [address] [address] Apr, Type 2 diabetes mellitus wit h complication E11.8 ; Mild intellectual disability F70 ; Gastroesophageal reflux disease without esophagitis K21.9 ; Reactive airway disease, mild intermittent, uncomplicated J45.20 and Tobacco abuse Z72.0 [place] [address] [place] [id number] [address] [place] [id number] Apr, High risk medication use Z79 .899 ; Mild intellectual disability F70 ; Intermittent explosive disorder in adult F63.81 and Bipolar disorder, unspecified F31.9 [facility] [address] [id number] [address] [place] [address] [id number] Mar, Encounter for dental exam an d cleaning w/o abnormal findings Z01.20 [facility] [address] [id number] [address] [place] [address] [phone] Mar, Dental examination Z01.20 [facility] [address] [id number] [address] [place] [id number] 12 Jan, 2017 [facility] [address] [id number] [address] [place] [id number] Jan, [facility] [address] [id number] [address] [place] [phone] Jan, Mild intellectual disability F70 ; Bipolar disorder, unspecified F31.9 and Intermittent explosive disorder in adult F63.81 [facility] [address] [id number] [address] [place] [id number] Jan, Diabetes E11.9 [facility] [address] [id number] [address] [place] [address] [id number] Dec, Encounter for dental examina tion and cleaning without abnormal findings Z01.20 [facility] [address] [id number] [address] [place] [id number] Dec, Bipolar disorder, unspecifie d F31.9 ; Intermittent explosive disorder in adult F63.81 and Mild intellectual disability F70 [facility] [address] [id number] [address] [place] [address] Nov, Diabetes E11.9 [facility] [address] [id number] [address] [place] [phone] Nov, [facility] [address] [id number] [address] [place] [phone] 14 Nov, 2016 Diabetes E11.9 and Colon can cer screening Z12.11 [facility] [address] [id number] [id number] 21 Sep, 2016 Dental examination Z01.20 [facility] [address] [id number] [address] [place] [address] [id number] 21 Sep, 2016 Encounter for dental examina tion and cleaning without abnormal findings Z01.20 [facility] [address] [id number] [address] [place] [id number] 13 Sep, 2016 Bipolar disorder, unspecifie d F31.9 [facility] [address] [id number] [address] [place] [phone] 12 Sep, 2016 Bipolar disorder, unspecifie d F31.9 [facility] [address] [facility] [id number] [address] [place] [id number] Jul, [facility] [address] [facility] [id number] [address] [place] [phone] Jul, Type 2 diabetes mellitus wit h complication E11.8 [facility] [address] [id number] [address] [place] [address] [id number] 15 Jun, 2016 Encounter for dental examina tion and cleaning without abnormal findings Z01.[address] [id number] [id number] 15 Jun, 2016 Dental examination Z01.20 [facility] [address] [facility] [id number] [address] [place] [id number] 18 Apr, 2016 Sports physical Z02.5 [facility] [address] [facility] [id number] [address] [place] [id number] 14 Mar, 2016 Bipolar disorder, in partial remission, most recent episode manic F31.73 and Intermittent explosive disorder in adult F63.81 [facility] [address] [id number] [address] [place] [id number] 08 Mar, 2016 [facility] [address] [facility] [id number] [address] [place] [phone] Mar, Diabetes E11.9 [facility] [address] [id number] [address] [place] [address] [id number] Feb, Encounter for dental examina tion and cleaning without abnormal findings Z01.20 [facility] [address] [id number] [address] [place] [id number] 22 Dec, 2015 Nocturnal hypoxemia G47.34 a nd Encounter for immunization Z23 [facility] [address] [id number] [address] [place] [id number] 15 Dec, 2015 [facility] [address] [id number] [address] [place] [phone] Dec, [facility] [address] [facility] [id number] [address] [place] [phone] Dec, Bipolar disorder, unspecifie d F31.9 [facility] [address] [facility] [id number] [place] [address] [id number] Oct, Encounter for dental examina tion and cleaning without abnormal findings Z01.[id number] [place] [address] [id number] Oct, Dental examination Z01.20 [facility] [address] [facility] [id number] [address] [place] [id number] Oct, Diabetes E11.9 [facility] [address] [facility] [id number] [address] [place] [id number] Oct, Diabetes E11.9 ; Reactive ai rway disease, mild intermittent, uncomplicated J45.20 and Tobacco abuse Z72.0 [facility] [address] [facility] [id number] [address] [place] [id number] Sep, Bipolar disorder, unspecifie d F31.9 and Depression F32.9 [facility] [address] [facility] [id number] [address] [place] [phone] Sep, [facility] [address] [facility] [id number] [address] [place] [address] August, Tinea pedis of both feet B35 .3 and DM w/o complication type II, uncontrolled E11.65 [place] [address] [address] Jul, [place] [address] [address] Jul, [place] [address] [address] Jul, Obstructive sleep apnea G47. 33 [place] [address] [address] Jun, Diabetes E11.9 [place] [address] [address] Jun, [place] [address] [address] Jun, [place] [address] [address] Jun, Bipolar disorder, unspecifie d F31.9 and Mental retardation F79 [place] [address] [address] Apr, [place] [address] [address] Feb, Diabetes E11.9 ; Encounter f or immunization Z23 ; Cough R05 and Nicotine abuse Z72.0 [place] [address] [address] Jan, Bipolar disorder, unspecifie d F31.9 and Diabetes mellitus without mention of complication, type II or unspecified type, uncontrolled 250.02 [place] [address] [address] Jan, [place] [address] [address] Dec, Reactive airway disease 493. 90 and Enuresis 788.30 [facility] [address] [facility] [id number] [address] [place] [id number] Dec, [facility] [address] [facility] [id number] [address] [place] [phone] Nov, [facility] [address] [facility] [id number] [address] [place] [phone] Nov, [facility] [address] [facility] [id number] [place] [address] Nov, Annual physical exam V70.0 ; Urinary incontinence 788.30 ; Diabetes 250.00 and Hypertension 401.9 [facility] [address] [place] [id number] [place] [phone] Oct, Diabetes mellitus without me ntion of complication, type II or unspecified type, uncontrolled 250.02 [facility] [address] [address] Oct, Diabetes mellitus without me ntion of complication, type II or unspecified type, uncontrolled 250.02 [facility] [address] [place] [id number] [address] [place] [id number] Oct, Diabetes mellitus without me ntion of complication, type II or unspecified type, uncontrolled 250.02 [facility] [address] [place] [id number] [address] [place] [phone] Oct, [facility] [address] [place] [id number] [address] [place] [phone] Oct, [facility] [address] [facility] [id number] [address] [place] [address] Oct, Bipolar disorder, unspecifie d 296.80 [facility] [address] [place] [id number] [address] [place] [address] [id number] Sep, Dental examination V72.2 [facility] [address] [facility] [id number] [address] [place] [id number] August, [facility] [id number] [place] [address] [id number] August, Dental examination V72.2 [facility] [address] [id number] [address] [place] [phone] August, [facility] [address] [id number] [address] [place] [id number] 14 Jul, 2014 [facility] [address] [id number] [address] [place] [phone] Jul, [facility] [address] [id number] [address] [place] [id number] 17 Jun, 2014 [facility] [address] [id number] [address] [place] [phone] Jun, [facility] [address] [id number] [address] [place] [phone] Jun, [facility] [address] [id number] [address] [place] [phone] Jun, [facility] [address] [id number] [address] [place] [phone] May, [facility] [address] [id number] [address] [place] [phone] 23 May, 2014 [facility] [address] [id number] [address] [place] [id number] 16 May, 2014 [facility] [address] [id number] [address] [place] [phone] May, 2014 [facility] [address] [id number] [address] [place] [phone] May, [facility] [address] [id number] [address] [place] [id number] 16 May, 2014 [facility] [address] [id number] [address] [place] [address] 16 May, 2014 [facility] [address] [id number] [address] [place] [address] May, 2014 [facility] [address] [id number] [address] [place] [address], [place] [address] May, 2014 [facility] [address] [id number] [address] [place] [address], [place] [address] May, 2014 [facility] [address] [id number] [address] [place] [address], [place] [address] May, 2014 [facility] [address] [id number] [address] [place] [address], [place] [address] May, 2014 [facility] [address] [id number] [address] [place] [address], [place] [address] May, 2014 [facility] [address] [id number] [address] [place] [address], [place] [address] May, 2014 [facility] [address] [id number] [address] [place] [address], [place] [address] May, [facility] [address] [id number] [address] [place] [address], [place] [address] Apr, [facility] [address] [id number] [address] [place] [address], [place] [address] Apr, [facility] [address] [id number] [address] [place] [address], [place] [address] Apr, [facility] [address] [id number] [address] [place] [address], [place] [address] Apr, [facility] [address] [id number] [address] [place] [address] Apr, [facility] [address] [id number] [address] [place] [address], [place] [address] Apr, [facility] [address] [id number] [address] [place] [address], [place] [address] Apr, [facility] [address] [id number] [address] [place] [address] Apr, [facility] [address] [id number] [address] [place] [address], [place] [address] Apr, [facility] [address] [id number] [address] [place] [address], [place] [address] Apr, [facility] [address] [id number] [address] [place] [address], [place] [address] Apr, [facility] [address] [id number] [address] [place] [address], [place] [address] Apr, [facility] [address] [id number] [address] [place] [address], [place] [address] Mar, [facility] [address] [id number] [address] [place] [address], [place] [address] Mar, [facility] [address] [id number] [address] [place] [address], [place] [address] Mar, [facility] [address] [id number] [address] [place] [address], [place] [address] Mar, [facility] [address] [id number] [address] [place] [address], [place] [address] Mar, [facility] [address] [id number] [address] [place] [address], [place] [address] Mar, [facility] [address] [id number] [address] [place] [address], [place] [address] Feb, [facility] [address] [id number] [address] [place] [address], [place] [address] Feb, [facility] [address] [id number] [address] [place] [address], [place] [address] Feb, [facility] [address] [id number] [address] [place] [address], [place] [address] Feb, [facility] [address] [id number] [address] [place] [address], [place] [address] 14 Jan, 2014 [facility] [address] [id number] [address] [place] [address], [place] [address] 14 Jan, 2014 [facility] [address] [id number] [address] [place] [address], [place] [address] 14 Jan, 2014 [facility] [address] [id number] [address] [place] [address], [place] [address] Jan, [facility] [address] [id number] [address] [place] [address], [place] [address] Dec, [facility] [address] [id number] [address] [place] [address], [place] [address] Dec, [facility] [address] [id number] [address] [place] [address], [place] [address] Dec, [facility] [address] [id number] [address] [place] [address], [place] [address] Dec, [facility] [address] [id number] [address] [place] [address], [place] [address] Nov, [facility] [address] [id number] [address] [place] [address], [place] [address] Nov, [facility] [address] [id number] [address] [place] [address], [place] [address] Nov, [facility] [address] [id number] [address] [place] [address], [place] [address] Nov, [facility] [address] [id number] [address] [place] [address], [place] [address] Nov, [facility] [address] [id number] [address] [place] [address], [place] [address] Nov, [facility] [address] [id number] [address] [place] [address], [place] [address] Nov, [facility] [address] [id number] [address] [place] [address], [place] [address] Oct, [facility] [address] [id number] [address] [place] [address], [place] [address] Oct, [facility] [address] [id number] [facility] [place] [address] Oct, [facility] [address] [id number] [facility] [place] [address] Oct, [facility] [address] [id number] [address] [place] [address], [place] [address] Oct, [facility] [address] [id number] [address] [place] [address], [place] [address] Oct, [facility] [address] [id number] [address] [place] [address], [place] [address] Oct, [facility] [address] [id number] [address] [place] [address], [place] [address] Sep, [facility] [address] [id number] [address] [place] [address], [place] [address] Sep, [facility] [address] [id number] [address] [place] [address], [place] [address] Sep, [facility] [address] [id number] [address] [place] [address], [place] [address] Sep, [facility] [address] [id number] [address] [place] [address], [place] [address] Sep, [facility] [address] [id number] [address] [place] [address], [place] [address] Jul, [facility] [address] [id number] [address] [place] [address], [place] [address] Jul, [facility] [address] [id number] [address] [place] [address], [place] [address] Jul, [facility] [address] [id number] [address] [place] [address], [place] [address] Jul, [facility] [address] [id number] [address] [place] [address], [place] [address] Jul, [facility] [address] [id number] [address] [place] [address], [place] [address] Jul, [facility] [address] [id number] [facility] [place] [address] Jul, [facility] [address] [id number] [facility] [place] [address] Jul, [facility] [address] [id number] [facility] [place] [address] Jul, [facility] [address] [id number] [address] [place] [address], [place] [address] Jul, [facility] [address] [id number] [address] [place] [address], [place] [address] Jul, [facility] [address] [id number] [address] [place] [address], [place] [address] Jul, [facility] [address] [id number] [address] [place] [address], [place] [address] Jun, [facility] [address] [id number] [address] [place] [address], [place] [address] Jun, [facility] [address] [id number] [address] [place] [address], [place] [address] Jun, [facility] [address] [id number] [address] [place] [address], [place] [address] Jun, [facility] [address] [id number] [address] [place] [address], [place] [address] Jun, [facility] [address] [id number] [address] [place] [address], [place] [address] Jun, [facility] [address] [id number] [address] [place] [address], [place] [address] Jun, [facility] [address] [id number] [address] [place] [address], [place] [address] Jun, [facility] [address] [id number] [address] [place] [address], [place] [address] May, [facility] [address] [id number] [address] [place] [address], [place] [address] May, [facility] [address] [id number] [address] [place] [address], [place] [address] May, [facility] [address] [id number] [address] [place] [address], [place] [address] May, [facility] [address] [id number] [address] [place] [address], [place] [address] May, [facility] [address] [id number] [address] [place] [address], [place] [address] May, [facility] [address] [id number] [address] [place] [address], [place] [address] May, [facility] [address] [id number] [address] [place] [address], [place] [address] May, [facility] [address] [id number] [address] [place] [address], [place] [address] Apr, [facility] [address] [id number] [address] [place] [address], [place] [address] Apr, [facility] [address] [id number] [address] [place] [address], [place] [address] Apr, [facility] [address] [id number] [address] [place] [address], [place] [address] Apr, [facility] [address] [id number] [address] [place] [address], [place] [address] Mar, [facility] [address] [id number] [address] [place] [address], [place] [address] Mar, [facility] [address] [id number] [address] [place] [address], [place] [address] Mar, [facility] [address] [id number] [address] [place] [address], [place] [address] Feb, [facility] [address] [id number] [address] [place] [address], [place] [address] Feb, [facility] [address] [id number] [address] [place] [address], [place] [address] Feb, [facility] [address] [id number] [address] [place] [address], [place] [address] Feb, [facility] [address] [id number] [address] [place] [address], [place] [address] Feb, [facility] [address] [id number] [address] [place] [address], [place] [address] Feb, [facility] [address] [id number] [address] [place] [address], [place] [address] Jan, [facility] [address] [id number] [address] [place] [address], [place] [address] Jan, [facility] [address] [id number] [address] [place] [address], [place] [address] Jan, [facility] [address] [id number] [address] [place] [address], [place] [address] Jan, [facility] [address] [id number] [address] [place] [address], [place] [address] Jan, [facility] [address] [id number] [address] [place] [address], [place] [address] Jan, [facility] [address] [id number] [address] [place] [address], [place] [address] Jan, [facility] [address] [id number] [address] [place] [address], [place] [address] 25 Dec, 2012 [facility] [address] [id number] [address] [place] [address] [address] 16 Sep2012 [facility] [address] [id number] [address] [place] [address], [place] [address] 10 Sep2012 [facility] [address] [id number] [address] [place] [address], [place] [address] 05 Sep2012 [facility] [address] [id number] [address] [place] [address] [place] [address] Nov, [facility] [address] [id number] [address] [place] [address], [place] [address] Nov, [facility] [address] [id number] [address] [place] [address], [place] [address] Nov, [facility] [address] [id number] [address] [place] [address], [place] [address] Nov, [facility] [address] [id number] [address] [place] [address], [place] [address] Nov, [facility] [address] [id number] [address] [place] [address], [place] [address] Nov, [facility] [address] [id number] [address] [place] [address], [place] [address] Nov, [facility] [address] [id number] [address] [place] [address], [place] [address] Oct, [facility] [address] [id number] [address] [place] [address], [place] [address] Oct, [facility] [address] [id number] [address] [place] [address], [place] [address] Oct, [facility] [address] [id number] [address] [place] [address], [place] [address] Oct, [facility] [address] [id number] [address] [place] [address], [place] [address] Oct, [facility] [address] [id number] [address] [place] [address], [place] [address] Oct, [facility] [address] [id number] [address] [place] [address], [place] [address] Oct, [facility] [address] [id number] [address] [place] [address], [place] [address] Oct, [facility] [address] [id number] [address] [place] [address], [place] [address] Sep, Suleiman PEREZ [address] [id number] [id number] August, [facility] [address] [id number] [address] [place] [address], [place] [address] August, [facility] [address] [id number] [address] [place] [address], [place] [address] Jul, [facility] [address] [id number] [address] [place] [address], [place] [address] Jul, [facility] [address] [id number] [address] [place] [address], [place] [address] Jul, [facility] [address] [id number] [address] [place] [address], [place] [address] Jul, [facility] [address] [id number] [address] [place] [address], [place] [address] Jul, [facility] [address] [id number] [address] [place] [address], [place] [address] Jul, [facility] [address] [id number] [address] [place] [address], [place] [address] Jul, [facility] [address] [id number] [address] [place] [address], [place] [address] Jun, [facility] [address] [id number] [address] [place] [address], [place] [address] Jun, [facility] [address] [id number] [address] [place] [address], [place] [address] Jun, [facility] [address] [id number] [address] [place] [address], [place] [address] Jun, [facility] [address] [id number] [address] [place] [address], [place] [address] Jun, [facility] [address] [id number] [address] [place] [address] May, [facility] [address] [id number] [address] [place] [address] 18 May, 2012 [facility] [address] [id number] [address] [place] [address], [place] [address] 04 May, 2012 [facility] [address] [id number] [address] [place] [address], [place] [address] 15 Apr, 2012 [facility] [address] [id number] [address] [place] [address], [place] [address] 14 Apr, 2012 [facility] [address] [id number] [address] [place] [address], [place] [address] 07 Apr, 2012 [facility] [address] [id number] [address] [place] [address], [place] [address] Mar, [facility] [address] [id number] [address] [place] [address], [place] [address] Mar, [facility] [address] [id number] [address] [place] [address], [place] [address] Mar, [facility] [address] [id number] [address] [place] [address], [place] [address] Mar, [facility] [address] [id number] [address] [place] [address], [place] [address] Mar, [facility] [address] [id number] [address] [place] [address], [place] [address] Mar, [facility] [address] [id number] [address] [place] [address], [place] [address] Feb, [facility] [address] [id number] [address] [place] [id number] Feb, [facility] [address] [id number] [address] [place] [address], [place] [address] Jan, [facility] [address] [id number] [address] [place] [address], [place] [address] Jan, [facility] [address] [id number] [address] [place] [address], [place] [address] 25 Dec, 2011 [facility] [address] [id number] [facility] [place] [address] Nov, [facility] [address] [id number] [address] [place] [address], [place] [address] Nov, [facility] [address] [id number] [address] [place] [address], [place] [address] Nov, [facility] [address] [id number] [address] [place] [address], [place] [address] Nov, [facility] [address] [id number] [address] [place] [address], [place] [address] Oct, [facility] [address] [id number] [address] [place] [address], [place] [address] Oct, [facility] [address] [id number] [address] [place] [address], [place] [address] Oct, [facility] [address] [id number] [address] [place] [address], [place] [address] Sep, [facility] [address] [id number] [address] [place] [address], [place] [address] Sep, [facility] [address] [id number] [address] [place] [address], [place] [address] Sep, [facility] [address] [id number] [address] [place] [address], [place] [address] August, [facility] [address] [id number] [address] [place] [address], [place] [address] August, [facility] [address] [id number] [address] [place] [address], [place] [address] Jul, [facility] [address] [id number] [address] [place] [address], [place] [address] Jul, [facility] [address] [id number] [address] [place] [address], [place] [address] Jul, [facility] [address] [id number] [address] [place] [address], [place] [address] Jul, [facility] [address] [id number] [address] [place] [address], [place] [address] Jun, [facility] [address] [id number] [address] [place] [address], [place] [address] May, [facility] [address] [id number] [address] [place] [address], [place] [address] Apr, [facility] [address] [id number] [address] [place] [address], [place] [address] Apr, [facility] [address] [id number] [address] [place] [address], [place] [address] Apr, [facility] [address] [id number] [address] [place] [address], [place] [address] Apr, [facility] [address] [id number] [address] [place] [address], [place] [address] Apr, [facility] [address] [id number] [address] [place] [address], [place] [address] Apr, [facility] [address] [id number] [address] [place] [address], [place] [address] Mar, [facility] [address] [id number] [address] [place] [address], [place] [address] Mar, [facility] [address] [id number] [address] [place] [address], [place] [address] Feb, [facility] [address] [id number] [address] [place] [address], [place] [address] Feb, [facility] [address] [id number] [address] [place] [address], [place] [address] Feb, [facility] [address] [id number] [address] [place] [address], [place] [address] 09 Feb, 2011 [facility] [address] [id number] [address] [place] [address], [place] [address] Jan, [facility] [address] [id number] [address] [place] [address], [place] [address] 18 Jan, 2011 [facility] [address] [id number] [address] [place] [address], [place] [address] 18 Jan, 2011 [facility] [address] [id number] [address] [place] [address], [place] [address] 18 Jan, 2011 [facility] [address] [id number] [address] [place] [address], [place] [address] 17 Nov, 2010 [facility] [address] [id number] [address] [place] [address], [place] [address] Mar, [facility] [address] [id number] [address] [place] [address], [place] [address] Mar, [facility] [address] [id number] [address] [place] [address], [place] [address] Feb, [facility] [address] [id number] [address] [place] [address], [place] [address] 15 Feb, 2010 [facility] [address] [id number] [address] [place] [address], [place] [address] Jan, [facility] [address] [id number] [address] [place] [address], [place] [address] Jan, [facility] [address] [id number] [address] [place] [address], [place] [address] Sep, [facility] [address] [id number] [address] [place] [address], [place] [address] 16 May, 2009 [facility] [address] [id number] [address] [place] [address], [place] [address] Apr, [facility] [address] [id number] [address] [place] [address], [place] [address] Mar, [facility] [address] [id number] [address] [place] [address], [place] [address] 15 Feb, 2009 [facility] [address] [id number] [address] [place] [address], [place] [address] Feb, [facility] [address] [facility] [id number] [address] [place] [id number] Feb, [facility] [address] [facility] [id number] [address] [place] [id number] 22 Jan, 2009 [facility] [address] [facility] [id number] [address] [place] [id number] Jan, [facility] [address] [facility] [id number] [address] [place] [id number] Jan, [facility] [address] [facility] [id number] [address] [place] [id number] Jan, [facility] [address] [facility] [id number] [address] [place] [id number] August, IMMUNIZATIONS No Known Immunizations SOCIAL HISTORY [...] age 6 Hospitalization History surgery Hospitalization History [facility] few times for BH
--- OUTSIDE RECORDS SUMMARY | 2019-09-29 10:31 | XMS REPORT ---
Author Author Cameron ALANIZ [facility] Address [address] [place] [address] Care Team Providers Care Crayon Sorting Machine Feeder Name Role Phone JEET ALANIZ Unavailable PROBLEMS Type Condition ICD9-CM Code [id number] Code Onset Dates Condition S tatus SNOMED Code Problem Open-angle glaucoma of both eyes, unspecified glaucoma stage, unspecified open-angle glaucoma type H40.10X0 Acti ve 75262533 Problem Adjustment disorder, unspecified type F43.20 Active 07836707 Problem Obstructive sleep apnea G47.33 Active 93376993 Problem Hypertensive retinopathy of both eyes H35.033 Active 9608151 Problem Type 2 diabetes mellitus with complication E11.8 Active 99362162 Problem Essential hypertension I10 Active 04407087 Problem Depression F32.9 Active 51008243 Problem Intermittent explosive disorder F63.81 Active 52531431 Problem Intermittent explosive disorder in adult F63.81 Active 57132841 Problem Bipolar disorder, unspecified F31.9 Active 24692465 Problem Mild intellectual disability F70 A ctive 22579796 Problem Other specified urinary incontinence N39.498 Active 215916386 Problem Bipolar disorder, in partial remission, most rec ent episode manic F31.73 Active 87150604 Problem 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 Active 68297611 Problem Type 2 diabetes mellitus wit h diabetic neuropathy, unspecified whether keno terminal operator insulin use E11.40 Active 905123 765243807 Problem Diabetes E11.9 Active 18743733 Problem Reactive airway disease, unspecified asthma justin rity, uncomplicated J45.909 Active 634519731715 Problem Reactive airway disease, mild intermittent, uncomplicated J45.20 Active 632429003 Problem Gastroesophageal reflux disease without esophagitis K21.9 Active 812070822 Problem Other diabetic neurological complication associated with type 2 diabetes mellitus E11.49 Active 037267282 Problem Neuropathy G62.9 Active 217197902 ALLERGIES No Information ENCOUNTERS Encounter Location Date Diagnosis [facility] [address] [facility] [id number] [address] [place] [id number] Oct, [facility] [address] [facility] [id number] [address] [place] [id number] August, [facility] [address] [facility] [id number] [address] [place] [id number] Jul, Type 2 diabetes mellitus wit h diabetic neuropathy, unspecified whether longterm insulin use E11.40 and Colon cancer screening Z12.11 [facility] [address] [facility] [id number] [address] [place] [id number] 10 Jul, 2019 Type 2 diabetes mellitus wit h diabetic neuropathy, unspecified whether longterm insulin use E11.40 and Tinea pedis, unspecified laterality B35.3 [facility] [address] [facility] [id number] [address] [place] [id number] 10 Jun, 2019 [facility] [address] [facility] [id number] [address] [place] [id number] Jun, [facility] [address] [facility] [id number] [address] [place] [id number] 04 Jun, 2019 Dysuria R30.0 [facility] [address] [facility] [id number] [address] [place] [id number] 02 Jun, 2019 [facility] [address] [facility] [id number] [address] [place] [id number] 20 May, 2019 Influenza J11.1 [facility] [address] [place] [id number] [address] [place] [id number] 13 May, 2019 Intermittent explosive disor salvatore in adult F63.81 [facility] [address] [facility] [id number] [address] [place] [id number] 12 May, 2019 [facility] [address] [facility] [id number] [address] [place] [id number] Apr, Intermittent explosive disor salvatore in adult F63.81 ; Bipolar disorder, unspecified F31.9 and Mild intellectual disability F70 [facility] [id number] [place] [id number] Apr, Oral health maintenance stat us requiring routine preventive dental care K08.9 [facility] [address] [id number] [address] [place] [id number] 20 Apr, 2019 Type 2 diabetes mellitus wit h complication E11.8 ; History of test for hearing Z92.89 ; Colon cancer screening Z12.11 ; Other specified urinary incontinence N39.498 and Impacted cerumen, right ear H61.21 [facility] [address] [id number] [address] [place] [id number] Apr, Onychomycosis B35.1 ; Other diabetic neurological complication associated with type 2 diabetes mellitus E11.49 and Tinea pedis of both feet B35.3 [facility] [address] [id number] [address] [place] [id number] Feb, [facility] [address] [id number] [address] [place] [id number] Jan, [facility] [address] [id number] [address] [place] [id number] Jan, [facility] [address] [id number] [address] [place] [id number] Jan, [facility] [address] [id number] [address] [place] [id number] Jan, [facility] [address] [id number] [address] [place] [id number] Jan, [facility] [address] [id number] [address] [place] [id number] Jan, [facility] [address] [id number] [address] [place] [id number] Jan, [facility] [address] [id number] [address] [place] [phone] Jan, Anemia D64.9 [facility] [id number] [place] [id number] 04 Jan, 2019 Dental examination Z01.20 an d Oral health maintenance status requiring routine preventive dental care K08.9 [place] [address] [place] [id number] [address] [place] [id number] Jan, Onychomycosis B35.1 and Othe r diabetic neurological complication associated with type 2 diabetes mellitus E11.49 [place] [address] [place] [id number] [address] [place] [id number] Jan, Anemia D64.9 [place] [address] [place] [id number] [address] [place] [id number] Jan, [place] [address] [place] [id number] [address] [place] [id number] Dec, Urinary tract infection with out hematuria, site unspecified N39.0 [place] [address] [place] [id number] [address] [place] [id number] Dec, Type 2 diabetes mellitus wit h complication E11.8 ; Urinary tract infection without hematuria, site unspecified N39.0 ; Impacted cerumen of both ears H61.23 ; Encounter for immunization Z23 and Hyponatremia E87.1 [place] [address] [place] [id number] [address] [place] [id number] Dec, Intermittent explosive disor salvatore in adult F63.81 ; Dysuria R30.0 ; Type 2 diabetes mellitus with complication E11.8 ; Bipolar disorder, unspecified F31.9 and Mild intellectual disability F70 [place] [address] [place] [id number] [address] [place] [id number] Dec, Dysuria R30.0 [place] [address] [place] [id number] [address] [place] [id number] Dec, Intermittent explosive disor salvatore in adult F63.81 ; Bipolar disorder, unspecified F31.9 and Mild intellectual disability F70 [place] [address] [place] [id number] [address] [place] [id number] Nov, [facility] [address] [id number] [address] [place] [id number] Oct, [facility] [address] [facility] [id number] [place] [id number] Oct, Oral health maintenance stat us requiring routine preventive dental care K08.9 [facility] [address] [facility] [id number] [address] [place] [id number] August, Intermittent explosive disor salvatore in adult F63.81 ; Bipolar disorder, unspecified F31.9 and Mild intellectual disability F70 [facility] [address] [facility] [id number] [address] [place] [address] [phone] August, Dental caries K02.9 [facility] [address] [facility] [id number] [address] [place] [id number] Jul, Onychomycosis B35.1 ; Other diabetic neurological complication associated with type 2 diabetes mellitus E11.49 and Tinea pedis of both feet B35.3 [facility] [address] [id number] [address] [place] [address] [id number] Jul, Caries K02.9 [facility] [address] [facility] [id number] [address] [place] [id number] Jul, Type 2 diabetes mellitus wit h complication E11.8 ; Tobacco abuse Z72.0 and Bipolar disorder, unspecified F31.9 [facility] [address] [facility] [id number] [address] [place] [id number] Jun, [facility] [address] [id number] [address] [place] [address] [id number] Jun, Dental examination Z01.20 an d Oral health maintenance status requiring routine preventive dental care K08.9 [facility] [address] [facility] [id number] [address] [place] [id number] May, Bilateral impacted cerumen H 61.23 [facility] [address] [facility] [id number] [address] [place] [id number] Apr, Bipolar disorder, unspecifie d F31.9 ; Intermittent explosive disorder in adult F63.81 ; Type 2 diabetes mellitus with complication E11.8 ; Tobacco abuse Z72.0 and Colon cancer screening Z12.11 [facility] [address] [place] [id number] Apr, Onychomycosis B35.1 and Othe r diabetic neurological complication associated with type 2 diabetes mellitus E11.49 [facility] [address] [place] [id number] [address] [place] [id number] Apr, Intermittent explosive disor salvatore in adult F63.81 ; Bipolar disorder, unspecified F31.9 and Mild intellectual disability F70 [place] [address] [place] [id number] [address] [place] [id number] 03 Mar, 2018 Diabetes E11.9 [facility] [address] [place] [id number] [address] [place] [phone] Jan, Encounter for immunization Z 23 [facility] [address] [place] [id number] Jan, Tinea pedis of both feet B35 .3 ; Other diabetic neurological complication associated with type 2 diabetes mellitus E11.49 and Onychomycosis B35.1 [facility] [address] [place] [id number] [address] [place] [id number] Nov, Type 2 diabetes mellitus wit h complication E11.8 [place] [address] [place] [id number] Nov, [facility] [address] [place] [id number] [address] [place] [id number] Oct, Intermittent explosive disor salvatore in adult F63.81 ; Bipolar disorder, unspecified F31.9 and Mild intellectual disability F70 [facility] [address] [place] [id number] [address] [place] [id number] Oct, [facility] [address] [facility] [id number] [address] [place] [address] [phone] Oct, Dental examination Z01.20 [facility] [address] [facility] [id number] [address] [place] [id number] 06 Oct, 2017 Onychomycosis B35.1 and Othe r diabetic neurological complication associated with type 2 diabetes mellitus E11.49 [facility] [address] [place] [id number] [address] [place] [id number] Sep, Type 2 diabetes mellitus wit h complication E11.8 and Colon cancer screening Z12.11 [facility] [address] [place] [id number] [address] [place] [id number] 18 Sep, 2017 Type 2 diabetes mellitus wit h complication E11.8 ; Colon cancer screening Z12.11 and Neuropathy G62.9 [place] [address] [place] [id number] [address] [place] [id number] August, Diabetes E11.9 [facility] [address] [place] [id number] [address] [place] [address] [id number] Jul, Dental examination Z01.20 [place] [id number] [place] [id number] 27 May, 2017 Mild intellectual disability F70 [place] [address] [place] [id number] [address] [place] [id number] 07 May, 2017 Mild intellectual disability F70 ; High risk medication use Z79.899 ; Intermittent explosive disorder in adult F63.81 and Bipolar disorder, unspecified F31.9 [place] [address] [place] [id number] May, [place] [address] [place] [id number] [address] [place] [id number] May, [place] [address] [place] [id number] [address] [place] [id number] Apr, Type 2 diabetes mellitus wit h complication E11.8 ; Mild intellectual disability F70 ; Gastroesophageal reflux disease without esophagitis K21.9 ; Reactive airway disease, mild intermittent, uncomplicated J45.20 and Tobacco abuse Z72.0 [place] [address] [place] [id number] Apr, High risk medication use Z79 .899 ; Mild intellectual disability F70 ; Intermittent explosive disorder in adult F63.81 and Bipolar disorder, unspecified F31.9 [facility] [address] [id number] [address] [place] [address] [id number] Mar, Encounter for dental exam an d cleaning w/o abnormal findings Z01.20 [facility] [address] [id number] [address] [place] [address] [phone] Mar, Dental examination Z01.20 [facility] [address] [id number] [address] [place] [id number] 12 Jan, 2017 [facility] [address] [id number] [address] [place] [id number] Jan, [facility] [address] [id number] [address] [place] [id number] Jan, Mild intellectual disability F70 ; Bipolar disorder, unspecified F31.9 and Intermittent explosive disorder in adult F63.81 [facility] [address] [id number] [address] [place] [id number] 02 Jan, 2017 Diabetes E11.9 [facility] [address] [id number] [address] [place] [address] [id number] Dec, Encounter for dental examina tion and cleaning without abnormal findings Z01.20 [facility] [address] [id number] [address] [place] [id number] 12 Dec, 2016 Bipolar disorder, unspecifie d F31.9 ; Intermittent explosive disorder in adult F63.81 and Mild intellectual disability F70 [facility] [address] [id number] [address] [place] [id number] Nov, Diabetes E11.9 [facility] [address] [id number] [address] [place] [id number] Nov, [facility] [address] [id number] [address] [place] [id number] 14 Nov, 2016 Diabetes E11.9 and Colon can cer screening Z12.11 [facility] [address] [address] [address] [id number] [id number] 21 Sep, 2016 Dental examination Z01.20 [facility] [address] [id number] [address] [place] [address] [id number] 21 Sep, 2016 Encounter for dental examina tion and cleaning without abnormal findings Z01.20 [facility] [address] [id number] [address] [place] [id number] 13 Sep, 2016 Bipolar disorder, unspecifie d F31.9 [facility] [address] [id number] [address] [place] [id number] 12 Sep, 2016 Bipolar disorder, unspecifie d F31.9 [facility] [address] [facility] [id number] [address] [place] [id number] Jul, [facility] [address] [facility] [id number] [address] [place] [id number] 13 Jul, 2016 Type 2 diabetes mellitus wit h complication E11.8 [facility] [address] [id number] [address] [place] [address] [id number] 15 Jun, 2016 Encounter for dental examina tion and cleaning without abnormal findings Z01.[address] [id number] [id number] 15 Jun, 2016 Dental examination Z01.20 [facility] [address] [facility] [id number] [address] [place] [id number] 18 Apr, 2016 Sports physical Z02.5 [facility] [address] [facility] [id number] [address] [place] [id number] 14 Mar, 2016 Bipolar disorder, in partial remission, most recent episode manic F31.73 and Intermittent explosive disorder in adult F63.81 [facility] [address] [id number] [address] [place] [id number] 08 Mar, 2016 [facility] [address] [facility] [id number] [address] [place] [id number] Mar, Diabetes E11.9 [facility] [address] [id number] [address] [place] [address] [phone] Feb, Encounter for dental examina tion and cleaning without abnormal findings Z01.20 [facility] [address] [id number] [address] [place] [id number] 22 Dec, 2015 Nocturnal hypoxemia G47.34 a nd Encounter for immunization Z23 [facility] [address] [id number] [address] [place] [id number] 15 Dec, 2015 [facility] [address] [facility] [id number] [address] [place] [id number] Dec, [facility] [address] [facility] [id number] [address] [place] [id number] Dec, Bipolar disorder, unspecifie d F31.9 [facility] [address] [facility] [id number] [place] [address] [id number] Oct, Encounter for dental examina tion and cleaning without abnormal findings Z01.20 [place] [address] [facility] [id number] [place] [address] [id number] Oct, Dental examination Z01.20 [facility] [address] [facility] [id number] [address] [place] [id number] Oct, Diabetes E11.9 [facility] [address] [facility] [id number] [address] [place] [id number] Oct, Diabetes E11.9 ; Reactive ai rway disease, mild intermittent, uncomplicated J45.20 and Tobacco abuse Z72.0 [facility] [address] [facility] [id number] [address] [place] [id number] Sep, Bipolar disorder, unspecifie d F31.9 and Depression F32.9 [facility] [address] [facility] [id number] [address] [place] [id number] Sep, [facility] [address] [facility] [id number] [address] [place] [id number] August, Tinea pedis of both feet B35 .3 and DM w/o complication type II, uncontrolled E11.65 [place] [address] [id number] Jul, [place] [address] [id number] Jul, [place] [address] [id number] Jul, Obstructive sleep apnea G47. 33 [place] [address] [id number] Jun, Diabetes E11.9 [place] [address] [id number] Jun, [place] [address] [id number] Jun, [place] [address] [id number] Jun, Bipolar disorder, unspecifie d F31.9 and Mental retardation F79 [place] [address] [id number] Apr, [place] [address] [id number] Feb, Diabetes E11.9 ; Encounter f or immunization Z23 ; Cough R05 and Nicotine abuse Z72.0 [place] [address] [id number] Jan, Bipolar disorder, unspecifie d F31.9 and Diabetes mellitus without mention of complication, type II or unspecified type, uncontrolled 250.02 [place] [address] [id number] Jan, [place] [address] [id number] Dec, Reactive airway disease 493. 90 and Enuresis 788.30 [facility] [address] [id number] [address] [place] [id number] Dec, [facility] [address] [facility] [id number] [address] [place] [id number] Nov, [facility] [address] [facility] [id number] [address] [place] [id number] Nov, [facility] [address] [facility] [id number] [address] [place] [id number] Nov, Annual physical exam V70.0 ; Urinary incontinence 788.30 ; Diabetes 250.00 and Hypertension 401.9 [facility] [address] [facility] [id number] [address] [place] [id number] Oct, Diabetes mellitus without me ntion of complication, type II or unspecified type, uncontrolled 250.02 [facility] [address] [facility] [id number] [address] [place] [id number] Oct, Diabetes mellitus without me ntion of complication, type II or unspecified type, uncontrolled 250.02 [facility] [address] [facility] [id number] [address] [place] [id number] Oct, Diabetes mellitus without me ntion of complication, type II or unspecified type, uncontrolled 250.02 [facility] [address] [place] [id number] [address] [place] [id number] Oct, [facility] [address] [facility] [id number] [address] [place] [id number] Oct, [facility] [address] [facility] [id number] [address] [place] [phone] Oct, Bipolar disorder, unspecifie d 296.80 [facility] [address] [id number] [address] [place] [id number] Sep, Dental examination V72.2 [facility] [address] [facility] [id number] [address] [place] [id number] August, [facility] [address] [id number] [address] [place] [id number] August, Dental examination V72.2 [facility] [address] [id number] [address] [place] [phone] August, [facility] [address] [id number] [address] [place] [address], [place] [phone] 14 Jul, 2014 [facility] [address] [id number] [address] [place] [phone] Jul, [facility] [address] [id number] [address] [place] [address], [place] [phone] 17 Jun, 2014 [facility] [address] [id number] [address] [place] [address], [place] [phone] Jun, [facility] [address] [id number] [address] [place] [phone] Jun, [facility] [address] [id number] [address] [place] [id number] Jun, [facility] [address] [id number] [address] [place] [id number] May, [facility] [address] [id number] [address] [place] [id number] 23 May, 2014 [facility] [address] [id number] [address] [place] [id number] 16 May, 2014 [facility] [address] [id number] [address] [place] [id number] 16 May, 2014 [facility] [address] [id number] [address] [place] [address] May, [facility] [address] [id number] [address] [place] [id number] 16 May, 2014 [facility] [address] [id number] [address] [place] [id number] 16 May, 2014 [facility] [address] [id number] [address] [place] [id number] May, 2014 [facility] [address] [id number] [address] [place] [address], [place] [address] May, 2014 [facility] [address] [id number] [address] [place] [address], [place] [address] May, 2014 [facility] [address] [id number] [address] [place] [address], [place] [address] May, 2014 [facility] [address] [id number] [address] [place] [address], [place] [address] May, 2014 [facility] [address] [id number] [address] [place] [address], [place] [address] May, 2014 [facility] [address] [id number] [address] [place] [address], [place] [address] May, 2014 [facility] [address] [id number] [address] [place] [address], [place] [address] May, 2014 [facility] [address] [id number] [address] [place] [address], [place] [address] Apr, [facility] [address] [id number] [address] [place] [address], [place] [address] Apr, [facility] [address] [id number] [address] [place] [address], [place] [address] Apr, [facility] [address] [id number] [address] [place] [address], [place] [address] Apr, [facility] [address] [id number] [address] [place] [address] Apr, [facility] [address] [id number] [address] [place] [address] Apr, [facility] [address] [id number] [address] [place] [address], [place] [address] Apr, [facility] [address] [id number] [address] [place] [phone] Apr, [facility] [address] [id number] [address] [place] [address], [place] [address] Apr, [facility] [address] [id number] [address] [place] [address], [place] [address] Apr, [facility] [address] [id number] [address] [place] [address], [place] [address] Apr, [facility] [address] [id number] [address] [place] [address], [place] [address] Apr, [facility] [address] [id number] [address] [place] [address], [place] [address] Mar, [facility] [address] [id number] [address] [place] [address], [place] [address] Mar, [facility] [address] [id number] [address] [place] [address], [place] [address] Mar, [facility] [address] [id number] [address] [place] [address], [place] [address] Mar, [facility] [address] [id number] [address] [place] [address], [place] [address] Mar, [facility] [address] [id number] [address] [place] [address], [place] [address] Mar, [facility] [address] [id number] [address] [place] [address], [place] [address] Feb, [facility] [address] [id number] [address] [place] [address], [place] [address] Feb, [facility] [address] [id number] [address] [place] [address], [place] [address] Feb, [facility] [address] [id number] [address] [place] [address], [place] [address] 13 Feb, 2014 [facility] [address] [id number] [address] [place] [address], [place] [address] 14 Jan, 2014 [facility] [address] [id number] [address] [place] [address], [place] [address] 14 Jan, 2014 [facility] [address] [id number] [address] [place] [address], [place] [address] 14 Jan, 2014 [facility] [address] [id number] [address] [place] [address], [place] [address] Jan, [facility] [address] [id number] [address] [place] [address], [place] [address] Dec, [facility] [address] [id number] [address] [place] [address], [place] [address] Dec, [facility] [address] [id number] [address] [place] [address], [place] [address] 15 Dec, 2013 [facility] [address] [id number] [address] [place] [address], [place] [address] Dec, [facility] [address] [id number] [address] [place] [address], [place] [address] Nov, [facility] [address] [id number] [address] [place] [address], [place] [address] Nov, [facility] [address] [id number] [address] [place] [address], [place] [address] Nov, [facility] [address] [id number] [address] [place] [address], [place] [address] Nov, [facility] [address] [id number] [address] [place] [address], [place] [address] Nov, [facility] [address] [id number] [address] [place] [address], [place] [address] Nov, [facility] [address] [id number] [address] [place] [address], [place] [address] Nov, [facility] [address] [id number] [address] [place] [address], [place] [address] Oct, [facility] [address] [id number] [address] [place] [address], [place] [address] Oct, [facility] [address] [id number] [facility] [place] [address] Oct, [facility] [address] [id number] [address] [place] [address], [place] [address] Oct, [facility] [address] [id number] [address] [place] [address], [place] [address] Oct, [facility] [address] [id number] [address] [place] [address], [place] [address] Oct, [facility] [address] [id number] [address] [place] [address], [place] [address] Oct, [facility] [address] [id number] [address] [place] [address], [place] [address] Sep, [facility] [address] [id number] [address] [place] [address], [place] [address] Sep, [facility] [address] [id number] [address] [place] [address], [place] [address] Sep, [facility] [address] [id number] [address] [place] [address], [place] [address] Sep, [facility] [address] [id number] [address] [place] [address], [place] [address] Sep, [facility] [address] [id number] [address] [place] [address], [place] [address] Jul, [facility] [address] [id number] [address] [place] [address], [place] [address] Jul, [facility] [address] [id number] [address] [place] [address], [place] [address] Jul, [facility] [address] [id number] [address] [place] [address], [place] [address] Jul, [facility] [address] [id number] [address] [place] [address], [place] [address] Jul, [facility] [address] [id number] [address] [place] [address], [place] [address] Jul, [facility] [address] [id number] [facility] [place] [address] Jul, [facility] [address] [id number] [address] [place] [address], [place] [address] Jul, [facility] [address] [id number] [address] [place] [address], [place] [address] Jul, [facility] [address] [id number] [address] [place] [address], [place] [address] Jul, [facility] [address] [id number] [address] [place] [address], [place] [address] Jul, [facility] [address] [id number] [address] [place] [address], [place] [address] Jul, [facility] [address] [id number] [address] [place] [address], [place] [address] Jun, [facility] [address] [id number] [address] [place] [address], [place] [address] Jun, [facility] [address] [id number] [address] [place] [address], [place] [address] Jun, [facility] [address] [id number] [address] [place] [address], [place] [address] Jun, [facility] [address] [id number] [address] [place] [address], [place] [address] Jun, [facility] [address] [id number] [address] [place] [address], [place] [address] Jun, [facility] [address] [id number] [address] [place] [address], [place] [address] Jun, [facility] [address] [id number] [address] [place] [address], [place] [address] Jun, [facility] [address] [id number] [address] [place] [address], [place] [address] May, [facility] [address] [id number] [address] [place] [address] May, [facility] [address] [id number] [address] [place] [address], [place] [address] May, [facility] [address] [id number] [address] [place] [address], [place] [address] May, [facility] [address] [id number] [address] [place] [address], [place] [address] May, [facility] [address] [id number] [address] [place] [address], [place] [address] May, [facility] [address] [id number] [address] [place] [address], [place] [address] May, [facility] [address] [id number] [address] [place] [address], [place] [address] May, [facility] [address] [id number] [address] [place] [address], [place] [address] Apr, [facility] [address] [id number] [address] [place] [address], [place] [address] Apr, [facility] [address] [id number] [address] [place] [address], [place] [address] Apr, [facility] [address] [id number] [address] [place] [address], [place] [address] Apr, [facility] [address] [id number] [address] [place] [address], [place] [address] Mar, [facility] [address] [id number] [address] [place] [address], [place] [address] Mar, [facility] [address] [id number] [address] [place] [address], [place] [address] Mar, [facility] [address] [id number] [address] [place] [address], [place] [address] Feb, [facility] [address] [id number] [address] [place] [address], [place] [address] Feb, [facility] [address] [id number] [address] [place] [address], [place] [address] Feb, [facility] [address] [id number] [address] [place] [address], [place] [address] Feb, [facility] [address] [id number] [address] [place] [address], [place] [address] Feb, [facility] [address] [id number] [address] [place] [address], [place] [address] Feb, [facility] [address] [id number] [address] [place] [address], [place] [address] Jan, [facility] [address] [id number] [address] [place] [address], [place] [address] Jan, [facility] [address] [id number] [address] [place] [address], [place] [address] Jan, [facility] [address] [id number] [address] [place] [address] Jan, [facility] [address] [id number] [address] [place] [address], [place] [address] Jan, [facility] [address] [id number] [address] [place] [address] Jan, [facility] [address] [id number] [address] [place] [address] Jan, [facility] [address] [id number] [address] [place] [address] 25 Dec, 2012 [facility] [address] [id number] [address] [place] [address] [address] 16 Sep2012 [facility] [address] [id number] [address] [place] [address] 10 Sep2012 [facility] [address] [id number] [address] [place] [address] 05 Sep2012 [facility] [address] [id number] [address] [place] [address] Nov, [facility] [address] [id number] [address] [place] [address], [place] [address] Nov, [facility] [address] [id number] [address] [place] [address], [place] [address] Nov, [facility] [address] [id number] [address] [place] [address], [place] [address] Nov, [facility] [address] [id number] [address] [place] [address], [place] [address] Nov, [facility] [address] [id number] [address] [place] [address], [place] [address] Nov, [facility] [address] [id number] [address] [place] [address], [place] [address] Nov, [facility] [address] [id number] [address] [place] [address], [place] [address] Oct, [facility] [address] [id number] [address] [place] [address], [place] [address] Oct, [facility] [address] [id number] [address] [place] [address], [place] [address] Oct, [facility] [address] [id number] [address] [place] [address], [place] [address] Oct, [facility] [address] [id number] [address] [place] [address], [place] [address] Oct, [facility] [address] [id number] [address] [place] [address], [place] [address] Oct, [facility] [address] [id number] [address] [place] [address], [place] [address] Oct, [facility] [address] [id number] [address] [place] [address], [place] [address] Oct, [facility] [address] [id number] [address] [place] [address], [place] [address] Sep, [facility] [address] [id number] [place] [id number] August, [facility] [address] [id number] [address] [place] [address], [place] [address] August, [facility] [address] [id number] [address] [place] [address], [place] [address] Jul, [facility] [address] [id number] [address] [place] [address], [place] [address] Jul, [facility] [address] [id number] [address] [place] [address], [place] [address] Jul, [facility] [address] [id number] [address] [place] [address], [place] [address] Jul, [facility] [address] [id number] [address] [place] [address], [place] [address] Jul, [facility] [address] [id number] [address] [place] [address], [place] [address] 17 Jul, 2012 [facility] [address] [id number] [address] [place] [address], [place] [address] 16 Jul, 2012 [facility] [address] [id number] [address] [place] [address], [place] [address] Jun, [facility] [address] [id number] [address] [place] [address], [place] [address] Jun, [facility] [address] [id number] [address] [place] [address], [place] [address] Jun, [facility] [address] [id number] [address] [place] [address], [place] [address] Jun, [facility] [address] [id number] [address] [place] [address], [place] [address] Jun, [facility] [address] [id number] [address] [place] [address], [place] [address] May, [facility] [address] [id number] [place] [address] 18 May, 2012 [facility] [address] [id number] [address] [place] [address], [place] [address] 04 May, 2012 [facility] [address] [id number] [address] [place] [address], [place] [address] 15 Apr, 2012 [facility] [address] [id number] [address] [place] [address], [place] [address] 14 Apr, 2012 [facility] [address] [id number] [address] [place] [address], [place] [address] 07 Apr, 2012 [facility] [address] [id number] [address] [place] [address], [place] [address] Mar, [facility] [address] [id number] [address] [place] [address], [place] [address] 31 Mar, 2012 [facility] [address] [id number] [address] [place] [address], [place] [address] Mar, [facility] [address] [id number] [address] [place] [address], [place] [address] Mar, [facility] [address] [id number] [address] [place] [address], [place] [address] Mar, [facility] [address] [id number] [address] [place] [address], [place] [address] Mar, [facility] [address] [id number] [address] [place] [address], [place] [address] Feb, [facility] [address] [id number] [address] [place] [id number] Feb, [facility] [address] [id number] [address] [place] [address], [place] [address] Jan, [facility] [address] [id number] [address] [place] [address], [place] [address] Jan, [facility] [address] [id number] [address] [place] [address], [place] [address] 25 Dec, 2011 [facility] [address] [id number] [address] [place] [address], [place] [address] Nov, [facility] [address] [id number] [address] [place] [address], [place] [address] Nov, [facility] [address] [id number] [address] [place] [address], [place] [address] Nov, [facility] [address] [id number] [address] [place] [address], [place] [address] Nov, [facility] [address] [id number] [address] [place] [address], [place] [address] Oct, [facility] [address] [id number] [address] [place] [address], [place] [address] Oct, [facility] [address] [id number] [address] [place] [address], [place] [address] Oct, [facility] [address] [id number] [address] [place] [address], [place] [address] Sep, [facility] [address] [id number] [address] [place] [address], [place] [address] Sep, [facility] [address] [id number] [address] [place] [address], [place] [address] Sep, [facility] [address] [id number] [address] [place] [address], [place] [address] August, [facility] [address] [id number] [address] [place] [address], [place] [address] August, [facility] [address] [id number] [address] [place] [address], [place] [address] Jul, [facility] [address] [id number] [address] [place] [address], [place] [address] 24 Jul, 2011 [facility] [address] [id number] [address] [place] [address], [place] [address] Jul, [facility] [address] [id number] [address] [place] [address], [place] [address] Jul, [facility] [address] [id number] [address] [place] [address], [place] [address] Jun, [facility] [address] [id number] [address] [place] [address], [place] [address] May, [facility] [address] [id number] [address] [place] [address], [place] [address] Apr, [facility] [address] [id number] [address] [place] [address], [place] [address] Apr, [facility] [address] [id number] [address] [place] [address], [place] [address] Apr, [facility] [address] [id number] [address] [place] [address], [place] [address] Apr, [facility] [address] [id number] [address] [place] [address], [place] [address] Apr, [facility] [address] [id number] [address] [place] [address], [place] [address] Apr, [facility] [address] [id number] [address] [place] [address], [place] [address] Mar, [facility] [address] [id number] [address] [place] [address], [place] [address] Mar, [facility] [address] [id number] [address] [place] [address], [place] [address] Feb, [facility] [address] [id number] [address] [place] [id number] Feb, [facility] [address] [id number] [address] [place] [address], [place] [address] Feb, [facility] [address] [id number] [address] [place] [address], [place] [address] 09 Feb, 2011 [facility] [address] [id number] [address] [place] [address], [place] [address] Jan, [facility] [address] [id number] [address] [place] [address], [place] [address] 18 Jan, 2011 [facility] [address] [id number] [address] [place] [address], [place] [address] 18 Jan, 2011 [facility] [address] [id number] [address] [place] [address], [place] [address] 18 Jan, 2011 [facility] [address] [id number] [address] [place] [address], [place] [address] 17 Nov, 2010 [facility] [address] [id number] [address] [place] [address], [place] [address] 03 Mar, 2010 [facility] [address] [id number] [address] [place] [address], [place] [address] Mar, [facility] [address] [id number] [address] [place] [address], [place] [address] 30 Feb, 2010 [facility] [address] [id number] [address] [place] [address], [place] [address] 15 Feb, 2010 [facility] [address] [id number] [address] [place] [address], [place] [address] Jan, [facility] [address] [id number] [address] [place] [address], [place] [address] Jan, [facility] [address] [id number] [address] [place] [address], [place] [phone] Sep, [facility] [address] [id number] [address] [place] [address], [place] [phone] 16 May, 2009 [facility] [address] [id number] [address] [place] [address], [place] [phone] Apr, [facility] [address] [id number] [address] [place] [address], [place] [phone] Mar, [facility] [address] [id number] [address] [place] [address], [place] [phone] 15 Feb, 2009 [facility] [address] [id number] [address] [place] [phone] Feb, [facility] [address] [facility] [id number] [address] [place] [phone] 10 Feb, 2009 [facility] [address] [facility] [id number] [address] [place] [phone] 22 Jan, 2009 [facility] [address] [facility] [id number] [address] [place] [phone] 13 Jan, 2009 [facility] [address] [facility] [id number] [address] [place] [phone] 13 Jan, 2009 [facility] [address] [facility] [id number] [address] [place] [phone] 11 Jan, 2009 [facility] [address] [facility] [id number] [address] [place] [phone] August, IMMUNIZATIONS No Known Immunizations SOCIAL HISTORY [...] 7 Hospitalization History surgery Hospitalization History [facility], [place] tie treatment few times for BH
--- OUTSIDE RECORDS SUMMARY | 2019-09-29 10:31 | XMS REPORT ---
Author Author Cameron MERCEDES Organization [facility] Address [address] [place] [address] Care Team Providers Care Shirrer Name Role Phone ANGEL MERCEDES Unavailable PROBLEMS Type Condition ICD9-CM Code KMU72-SM Code Onset Dates Condition S tatus SNOMED Code Problem Open-angle glaucoma of both eyes, unspecified glaucoma stage, unspecified open-angle glaucoma type H40.10X0 Acti ve 59456282 Problem Adjustment disorder, unspecified type F43.20 Active 25082743 Problem Obstructive sleep apnea G47.33 Active 75838498 Problem Hypertensive retinopathy of both eyes H35.033 Active 8152811 Problem Type 2 diabetes mellitus with complication E11.8 Active 93115654 Problem Essential hypertension I10 Active 48771898 Problem Depression F32.9 Active 93985292 Problem Intermittent explosive disorder F63.81 Active 98445250 Problem Intermittent explosive disorder in adult F63.81 Active 55259335 Problem Bipolar disorder, unspecified F31.9 Active 90972989 Problem Mild intellectual disability F70 A ctive 24015208 Problem Other specified urinary incontinence N39.498 Active 025996537 Problem Bipolar disorder, in partial remission, most rec ent episode manic F31.73 Active 08814002 Problem 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 Active 71492256 Problem Type 2 diabetes mellitus wit h diabetic neuropathy, unspecified whether residential insulin use E11.40 Active 355710 978941846 Problem Diabetes E11.9 Active 66060125 Problem Reactive airway disease, unspecified asthma justin rity, uncomplicated J45.909 Active 814070205703 Problem Reactive airway disease, mild intermittent, uncomplicated J45.20 Active 727396799 Problem Gastroesophageal reflux disease without esophagitis K21.9 Active 936496901 Problem Other diabetic neurological complication associated with type 2 diabetes mellitus E11.49 Active 088199689 Problem Neuropathy G62.9 Active [id number] ALLERGIES No Information ENCOUNTERS Encounter Location Date Diagnosis [facility] [address] [facility] [id number] [address] [place] [id number] Oct, [facility] [address] [facility] [id number] [address] [place] [id number] August, [facility] [address] [facility] [id number] [address] [place] [id number] Jul, Type 2 diabetes mellitus wit h diabetic neuropathy, unspecified whether residential insulin use E11.40 and Colon cancer screening Z12.11 [facility] [address] [facility] [id number] [address] [place] [id number] 10 Jul, 2019 Type 2 diabetes mellitus wit h diabetic neuropathy, unspecified whether residential insulin use E11.40 and Tinea pedis, unspecified laterality B35.3 [facility] [address] [facility] [id number] [address] [place] [id number] 10 Jun, 2019 [facility] [address] [facility] [id number] [address] [place] [phone] Jun, [facility] [address] [facility] [id number] [address] [place] [id number] 04 Jun, 2019 Dysuria R30.0 [facility] [address] [facility] [id number] [address] [place] [id number] 02 Jun, 2019 [facility] [address] [facility] [id number] [address] [place] [phone] 20 May, 2019 Influenza J11.1 [facility] [address] [facility] [id number] [address] [place] [id number] 13 May, 2019 Intermittent explosive disor salvatore in adult F63.81 [facility] [address] [facility] [id number] [address] [place] [id number] 12 May, 2019 [facility] [address] [facility] [id number] [address] [place] [phone] Apr, Intermittent explosive disor salvatore in adult F63.81 ; Bipolar disorder, unspecified F31.9 and Mild intellectual disability F70 [facility] [id number] [place] [id number] Apr, Oral health maintenance stat us requiring routine preventive dental care K08.9 [facility] [address] [id number] [address] [place] [id number] 20 Apr, 2019 Type 2 diabetes mellitus wit h complication E11.8 ; History of test for hearing Z92.89 ; Colon cancer screening Z12.11 ; Other specified urinary incontinence N39.498 and Impacted cerumen, right ear H61.21 [facility] [address] [id number] [address] [place] [id number] 10 Apr, 2019 Onychomycosis B35.1 ; Other diabetic neurological complication associated with type 2 diabetes mellitus E11.49 and Tinea pedis of both feet B35.3 [facility] [address] [facility] [id number] [address] [place] [phone] Feb, [facility] [address] [id number] [address] [place] [id number] Jan, [facility] [address] [facility] [id number] [address] [place] [phone] Jan, [facility] [address] [id number] [address] [place] [phone] Jan, [facility] [address] [facility] [id number] [address] [place] [phone] Jan, [facility] [address] [id number] [address] [place] [phone] Jan, [facility] [address] [id number] [address] [place] [phone] Jan, [facility] [address] [id number] [address] [place] [phone] Jan, [facility] [address] [facility] [id number] [address] [place] [id number] Jan, Anemia D64.9 [facility] [id number] [place] [id number] 04 Jan, 2019 Dental examination Z01.20 an d Oral health maintenance status requiring routine preventive dental care K08.9 [facility] [address] [place] [id number] [address] [place] [phone] Jan, Onychomycosis B35.1 and Othe r diabetic neurological complication associated with type 2 diabetes mellitus E11.49 [facility] [place] [address] [place] [id number] [address] [place] [phone] Jan, Anemia D64.9 [facility] [address] [place] [id number] [address] [place] [phone] Jan, [place] [address] [place] [id number] [address] [place] [id number] Dec, Urinary tract infection with out hematuria, site unspecified N39.0 [place] [place] [address] [place] [id number] [address] [place] [phone] Dec, Type 2 diabetes mellitus wit h complication E11.8 ; Urinary tract infection without hematuria, site unspecified N39.0 ; Impacted cerumen of both ears H61.23 ; Encounter for immunization Z23 and Hyponatremia E87.1 [place] [address] [place] [id number] [address] [place] [phone] Dec, Intermittent explosive disor salvatore in adult F63.81 ; Dysuria R30.0 ; Type 2 diabetes mellitus with complication E11.8 ; Bipolar disorder, unspecified F31.9 and Mild intellectual disability F70 [place] [address] [place] [id number] [address] [place] [phone] Dec, Dysuria R30.0 [place] [address] [place] [id number] [address] [place] [id number] Dec, Intermittent explosive disor salvatore in adult F63.81 ; Bipolar disorder, unspecified F31.9 and Mild intellectual disability F70 [place] [address] [place] [id number] [address] [place] [phone] Nov, [facility] [address] [facility] [id number] [address] [place] [phone] Oct, [facility] [address] [place] [id number] [place] [phone] Oct, Oral health maintenance stat us requiring routine preventive dental care K08.9 [facility] [address] [facility] [id number] [address] [place] [id number] August, Intermittent explosive disor salvatore in adult F63.81 ; Bipolar disorder, unspecified F31.9 and Mild intellectual disability F70 [facility] [address] [facility] [id number] [address] [place] [address] [id number] August, Dental caries K02.9 [facility] [address] [facility] [id number] [address] [place] [phone] Jul, Onychomycosis B35.1 ; Other diabetic neurological complication associated with type 2 diabetes mellitus E11.49 and Tinea pedis of both feet B35.3 [facility] [address] [facility] [id number] [address] [place] [address] [id number] Jul, Caries K02.9 [facility] [address] [facility] [id number] [address] [place] [id number] Jul, Type 2 diabetes mellitus wit h complication E11.8 ; Tobacco abuse Z72.0 and Bipolar disorder, unspecified F31.9 [facility] [address] [facility] [id number] [address] [place] [phone] Jun, [facility] [address] [facility] [id number] [address] [place] [address] [id number] Jun, Dental examination Z01.20 an d Oral health maintenance status requiring routine preventive dental care K08.9 [facility] [address] [facility] [id number] [address] [place] [phone] May, Bilateral impacted cerumen H 61.23 [facility] [address] [facility] [id number] [address] [place] [id number] Apr, Bipolar disorder, unspecifie d F31.9 ; Intermittent explosive disorder in adult F63.81 ; Type 2 diabetes mellitus with complication E11.8 ; Tobacco abuse Z72.0 and Colon cancer screening Z12.11 [facility] [address] [place] [id number] Apr, Onychomycosis B35.1 and Othe r diabetic neurological complication associated with type 2 diabetes mellitus E11.49 [facility] [address] [place] [id number] [address] [place] [id number] Apr, Intermittent explosive disor salvatore in adult F63.81 ; Bipolar disorder, unspecified F31.9 and Mild intellectual disability F70 [facility] [address] [place] [id number] [address] [place] [id number] 03 Mar, 2018 Diabetes E11.9 [facility] [address] [place] [id number] [address] [place] [phone] Jan, Encounter for immunization Z 23 [facility] [address] [place] [id number] [address] [place] [id number] Jan, Tinea pedis of both feet B35 .3 ; Other diabetic neurological complication associated with type 2 diabetes mellitus E11.49 and Onychomycosis B35.1 [facility] [address] [place] [id number] [address] [place] [id number] Nov, Type 2 diabetes mellitus wit h complication E11.8 [facility] [address] [place] [phone] Nov, [facility] [address] [place] [id number] [address] [place] [id number] Oct, Intermittent explosive disor salvatore in adult F63.81 ; Bipolar disorder, unspecified F31.9 and Mild intellectual disability F70 [facility] [address] [place] [id number] [address] [place] [id number] Oct, [facility] [address] [place] [id number] [address] [place] [address] [id number] Oct, Dental examination Z01.20 [facility] [address] [facility] [id number] [address] [place] [id number] 06 Oct, 2017 Onychomycosis B35.1 and Othe r diabetic neurological complication associated with type 2 diabetes mellitus E11.49 [place] [address] [place] [id number] [address] [place] [id number] 19 Sep, 2017 Type 2 diabetes mellitus wit h complication E11.8 and Colon cancer screening Z12.11 [place] [address] [place] [id number] [address] [place] [id number] 18 Sep, 2017 Type 2 diabetes mellitus wit h complication E11.8 ; Colon cancer screening Z12.11 and Neuropathy G62.9 [place] [address] [place] [id number] [address] [place] [phone] August, Diabetes E11.9 [facility] [address] [place] [id number] [address] [place] [address] [id number] Jul, Dental examination Z01.20 [place] [address] [place] [id number] [address] [place] [id number] 27 May, 2017 Mild intellectual disability F70 [place] [address] [id number] 07 May, 2017 Mild intellectual disability F70 ; High risk medication use Z79.899 ; Intermittent explosive disorder in adult F63.81 and Bipolar disorder, unspecified F31.9 [place] [address] [place] [phone] May, [place] [address] [place] [id number] [address] [place] [phone] May, [place] [address] [place] [id number] [address] [place] [phone] Apr, Type 2 diabetes mellitus wit h complication E11.8 ; Mild intellectual disability F70 ; Gastroesophageal reflux disease without esophagitis K21.9 ; Reactive airway disease, mild intermittent, uncomplicated J45.20 and Tobacco abuse Z72.0 [place] [address] [place] [id number] [address] [place] [id number] Apr, High risk medication use Z79 .899 ; Mild intellectual disability F70 ; Intermittent explosive disorder in adult F63.81 and Bipolar disorder, unspecified F31.9 [facility] [address] [id number] [address] [place] [address] [id number] Mar, Encounter for dental exam an d cleaning w/o abnormal findings Z01.20 [facility] [address] [id number] [address] [place] [address] [id number] Mar, Dental examination Z01.20 [facility] [address] [id number] [address] [place] [id number] 12 Jan, 2017 [facility] [address] [id number] [address] [place] [phone] Jan, [facility] [address] [id number] [address] [place] [phone] Jan, Mild intellectual disability F70 ; Bipolar disorder, unspecified F31.9 and Intermittent explosive disorder in adult F63.81 [facility] [address] [id number] [address] [place] [id number] 02 Jan, 2017 Diabetes E11.9 [facility] [address] [id number] [address] [place] [address] [id number] 13 Dec, 2016 Encounter for dental examina tion and cleaning without abnormal findings Z01.20 [facility] [address] [id number] [address] [place] [id number] Dec, Bipolar disorder, unspecifie d F31.9 ; Intermittent explosive disorder in adult F63.81 and Mild intellectual disability F70 [facility] [address] [id number] [address] [place] [phone] Nov, Diabetes E11.9 [facility] [address] [id number] [address] [place] [id number] Nov, [facility] [address] [id number] [address] [place] [id number] Nov, Diabetes E11.9 and Colon can cer screening Z12.11 [facility] [address] [id number] [id number] 21 Sep, 2016 Dental examination Z01.20 [facility] [address] [id number] [address] [place] [address] [id number] 21 Sep, 2016 Encounter for dental examina tion and cleaning without abnormal findings Z01.20 [facility] [address] [id number] [address] [place] [id number] 13 Sep, 2016 Bipolar disorder, unspecifie d F31.9 [facility] [address] [id number] [address] [place] [id number] 12 Sep, 2016 Bipolar disorder, unspecifie d F31.9 [facility] [address] [facility] [id number] [address] [place] [phone] 26 Jul, 2016 [facility] [address] [facility] [id number] [address] [place] [id number] 13 Jul, 2016 Type 2 diabetes mellitus wit h complication E11.8 [facility] [address] [id number] [address] [place] [address] [id number] 15 Jun, 2016 Encounter for dental examina tion and cleaning without abnormal findings Z01.[address] [id number] [id number] 15 Jun, 2016 Dental examination Z01.20 [facility] [address] [facility] [id number] [address] [place] [id number] 18 Apr, 2016 Sports physical Z02.5 [facility] [address] [facility] [id number] [address] [place] [id number] 14 Mar, 2016 Bipolar disorder, in partial remission, most recent episode manic F31.73 and Intermittent explosive disorder in adult F63.81 [facility] [address] [facility] [id number] [address] [place] [id number] 08 Mar, 2016 [facility] [address] [facility] [id number] [address] [place] [phone] Mar, Diabetes E11.9 [facility] [address] [id number] [address] [place] [address] [id number] Feb, Encounter for dental examina tion and cleaning without abnormal findings Z01.20 [facility] [address] [id number] [address] [place] [id number] 22 Dec, 2015 Nocturnal hypoxemia G47.34 a nd Encounter for immunization Z23 [facility] [address] [id number] [address] [place] [id number] 15 Dec, 2015 [facility] [address] [facility] [id number] [address] [place] [phone] Dec, [facility] [address] [facility] [id number] [address] [place] [id number] Dec, Bipolar disorder, unspecifie d F31.9 [facility] [address] [id number] [address] [place] [address] [id number] Oct, Encounter for dental examina tion and cleaning without abnormal findings Z01.[id number] [place] [address] [id number] Oct, Dental examination Z01.20 [facility] [address] [facility] [id number] [address] [place] [phone] Oct, Diabetes E11.9 [facility] [address] [facility] [id number] [address] [place] [id number] Oct, Diabetes E11.9 ; Reactive ai rway disease, mild intermittent, uncomplicated J45.20 and Tobacco abuse Z72.0 [facility] [address] [facility] [id number] [address] [place] [id number] Sep, Bipolar disorder, unspecifie d F31.9 and Depression F32.9 [facility] [address] [facility] [id number] [address] [place] [id number] Sep, [facility] [address] [facility] [id number] [address] [place] [phone] August, Tinea pedis of both feet B35 .3 and DM w/o complication type II, uncontrolled E11.65 [place] [address] [id number] Jul, [facility] [address] [phone] Jul, [place] [address] [phone] Jul, Obstructive sleep apnea G47. 33 [place] [address] [id number] Jun, Diabetes E11.9 [place] [address] [id number] Jun, [place] [address] [id number] Jun, [place] [address] [id number] Jun, Bipolar disorder, unspecifie d F31.9 and Mental retardation F79 [place] [address] [id number] Apr, [place] [address] [address] Feb, Diabetes E11.9 ; Encounter f or immunization Z23 ; Cough R05 and Nicotine abuse Z72.0 [place] [address] [id number] Jan, Bipolar disorder, unspecifie d F31.9 and Diabetes mellitus without mention of complication, type II or unspecified type, uncontrolled 250.02 [place] [address] [id number] Jan, [place] [address] [id number] Dec, Reactive airway disease 493. 90 and Enuresis 788.30 [facility] [address] [id number] [address] [place] [id number] Dec, [facility] [address] [id number] [address] [place] [id number] Nov, [facility] [address] [id number] [address] [place] [phone] Nov, [facility] [address] [facility] [id number] [address] [place] [id number] Nov, Annual physical exam V70.0 ; Urinary incontinence 788.30 ; Diabetes 250.00 and Hypertension 401.9 [facility] [address] [id number] [address] [place] [id number] Oct, Diabetes mellitus without me ntion of complication, type II or unspecified type, uncontrolled 250.02 [facility] [address] [facility] [id number] [address] [place] [id number] Oct, Diabetes mellitus without me ntion of complication, type II or unspecified type, uncontrolled 250.02 [facility] [address] [facility] [id number] [address] [place] [id number] Oct, Diabetes mellitus without me ntion of complication, type II or unspecified type, uncontrolled 250.02 [facility] [address] [facility] [id number] [address] [place] [id number] Oct, [facility] [address] [facility] [id number] [address] [place] [id number] Oct, [facility] [address] [facility] [id number] [address] [place] [id number] Oct, Bipolar disorder, unspecifie d 296.80 [facility] [address] [id number] [address] [place] [address] [id number] Sep, Dental examination V72.2 [facility] [address] [id number] [address] [place] [id number] August, [facility] [address] [place] [id number] [address] [place] [address] [id number] August, Dental examination V72.2 [facility] [address] [id number] [address] [place] [id number] August, [facility] [address] [id number] [address] [place] [id number] 14 Jul, 2014 [facility] [address] [id number] [address] [place] [phone] Jul, [facility] [address] [id number] [address] [place] [id number] 17 Jun, 2014 [facility] [address] [id number] [address] [place] [id number] Jun, [facility] [address] [id number] [address] [place] [phone] Jun, [facility] [address] [id number] [address] [place] [phone] Jun, [facility] [address] [id number] [address] [place] [id number] May, [facility] [address] [id number] [address] [place] [id number] 23 May, 2014 [facility] [address] [id number] [address] [place] [id number] 16 May, 2014 [facility] [address] [id number] [address] [place] [id number] 16 May, 2014 [facility] [address] [id number] [address] [place] [id number] 16 May, 2014 [facility] [address] [id number] [address] [place] [id number] 16 May, 2014 [facility] [address] [id number] [address] [place] [id number] 16 May, 2014 [facility] [address] [id number] [address] [place] [id number] May, 2014 [facility] [address] [id number] [address] [place] [address], [place] [id number] May, [facility] [address] [id number] [address] [place] [address], [place] [id number] May, 2014 [facility] [address] [id number] [address] [place] [address], [place] [id number] May, 2014 [facility] [address] [id number] [address] [place] [address], [place] [id number] May, 2014 [facility] [address] [id number] [address] [place] [address], [place] [id number] May, [facility] [address] [id number] [address] [place] [address], [place] [id number] May, [facility] [address] [id number] [address] [place] [address], [place] [id number] May, [facility] [address] [id number] [address] [place] [address], [place] [id number] Apr, [facility] [address] [id number] [address] [place] [address], [place] [id number] Apr, [facility] [address] [id number] [address] [place] [address], [place] [id number] Apr, [facility] [address] [id number] [address] [place] [address], [place] [id number] Apr, [facility] [address] [id number] [address] [place] [address], [place] [id number] Apr, [facility] [address] [id number] [address] [place] [address], [place] [id number] Apr, [facility] [address] [id number] [address] [place] [address], [place] [id number] Apr, [facility] [address] [id number] [address] [place] [address], [place] [id number] Apr, [facility] [address] [id number] [address] [place] [address], [place] [id number] Apr, [facility] [address] [id number] [address] [place] [address], [place] [id number] Apr, [facility] [address] [id number] [address] [place] [address], [place] [id number] Apr, [facility] [address] [id number] [address] [place] [address], [place] [id number] Apr, [facility] [address] [id number] [address] [place] [address], [place] [id number] Mar, [facility] [address] [id number] [address] [place] [address], [place] [id number] Mar, [facility] [address] [id number] [address] [place] [address], [place] [id number] Mar, [facility] [address] [id number] [address] [place] [address], [place] [id number] Mar, [facility] [address] [id number] [address] [place] [address], [place] [id number] Mar, [facility] [address] [id number] [address] [place] [address], [place] [id number] Mar, [facility] [address] [id number] [address] [place] [address], [place] [id number] 13 Feb, 2014 [facility] [address] [id number] [address] [place] [address], [place] [id number] 13 Feb, 2014 [facility] [address] [id number] [address] [place] [address], [place] [id number] 13 Feb, 2014 [facility] [address] [id number] [address] [place] [address], [place] [id number] 13 Feb, 2014 [facility] [address] [id number] [address] [place] [address], [place] [id number] 14 Jan, 2014 [facility] [address] [id number] [address] [place] [address], [place] [id number] 14 Jan, 2014 [facility] [address] [id number] [facility] [place] [id number] 14 Jan, 2014 [facility] [address] [id number] [address] [place] [address], [place] [id number] 14 Jan, 2014 [facility] [address] [id number] [address] [place] [address], [place] [id number] Dec, [facility] [address] [id number] [address] [place] [address], [place] [id number] Dec, [facility] [address] [id number] [address] [place] [address], [place] [id number] Dec, [facility] [address] [id number] [address] [place] [address], [place] [id number] Dec, [facility] [address] [id number] [address] [place] [address], [place] [id number] Nov, [facility] [address] [id number] [address] [place] [address], [place] [id number] Nov, [facility] [address] [id number] [address] [place] [address], [place] [id number] Nov, [facility] [address] [id number] [address] [place] [address], [place] [id number] Nov, [facility] [address] [id number] [address] [place] [address], [place] [address] Nov, [facility] [address] [id number] [address] [place] [address], [place] [address] Nov, [facility] [address] [id number] [address] [place] [address], [place] [id number] Nov, [facility] [address] [id number] [address] [place] [address], [place] [id number] Oct, [facility] [address] [id number] [address] [place] [address], [place] [id number] Oct, [facility] [address] [id number] [facility] [place] [address] Oct, [facility] [address] [id number] [address] [place] [address], [place] [id number] Oct, [facility] [address] [id number] [address] [place] [address], [place] [id number] Oct, [facility] [address] [id number] [address] [place] [address], [place] [id number] Oct, [facility] [address] [id number] [address] [place] [address], [place] [id number] Oct, [facility] [address] [id number] [address] [place] [address], [place] [id number] Sep, [facility] [address] [id number] [address] [place] [address], [place] [id number] Sep, [facility] [address] [id number] [address] [place] [address], [place] [id number] Sep, [facility] [address] [id number] [address] [place] [address], [place] [id number] Sep, [facility] [address] [id number] [address] [place] [address], [place] [id number] Sep, [facility] [address] [id number] [address] [place] [address], [place] [id number] Jul, [facility] [address] [id number] [address] [place] [address], [place] [id number] Jul, [facility] [address] [id number] [address] [place] [address], [place] [id number] Jul, [facility] [address] [id number] [address] [place] [address], [place] [id number] Jul, [facility] [address] [id number] [address] [place] [address], [place] [id number] Jul, [facility] [address] [id number] [address] [place] [address], [place] [address] Jul, [facility] [address] [id number] [facility] [place] [address] Jul, [facility] [address] [id number] [facility] [place] [address] Jul, [facility] [address] [id number] [facility] [place] [address] Jul, [facility] [address] [id number] [address] [place] [address], [place] [id number] Jul, [facility] [address] [id number] [address] [place] [address], [place] [id number] Jul, [facility] [address] [id number] [address] [place] [address], [place] [id number] Jul, [facility] [address] [id number] [address] [place] [address], [place] [id number] Jun, [facility] [address] [id number] [address] [place] [address], [place] [id number] Jun, [facility] [address] [id number] [address] [place] [address], [place] [id number] Jun, [facility] [address] [id number] [address] [place] [address], [place] [id number] Jun, [facility] [address] [id number] [address] [place] [address], [place] [id number] Jun, [facility] [address] [id number] [address] [place] [address], [place] [address] Jun, [facility] [address] [id number] [address] [place] [address], [place] [id number] Jun, [facility] [address] [id number] [address] [place] [address], [place] [id number] Jun, [facility] [address] [id number] [address] [place] [address], [place] [id number] May, [facility] [address] [id number] [address] [place] [address], [place] [address] May, [facility] [address] [id number] [address] [place] [address], [place] [address] May, [facility] [address] [id number] [address] [place] [address], [place] [id number] May, [facility] [address] [id number] [address] [place] [address], [place] [id number] May, [facility] [address] [id number] [address] [place] [address], [place] [id number] May, [facility] [address] [id number] [address] [place] [address], [place] [address] May, [facility] [address] [id number] [address] [place] [address], [place] [address] May, [facility] [address] [id number] [address] [place] [address], [place] [id number] Apr, [facility] [address] [id number] [address] [place] [address], [place] [id number] Apr, [facility] [address] [id number] [address] [place] [address], [place] [id number] Apr, [facility] [address] [id number] [address] [place] [address], [place] [id number] Apr, [facility] [address] [id number] [address] [place] [address], [place] [id number] Mar, [facility] [address] [id number] [address] [place] [address], [place] [address] Mar, [facility] [address] [id number] [address] [place] [address], [place] [id number] Mar, [facility] [address] [id number] [address] [place] [address], [place] [address] Feb, [facility] [address] [id number] [address] [place] [address], [place] [id number] Feb, [facility] [address] [id number] [address] [place] [address], [place] [id number] Feb, [facility] [address] [id number] [address] [place] [address], [place] [address] Feb, [facility] [address] [id number] [address] [place] [address], [place] [address] Feb, [facility] [address] [id number] [address] [place] [address], [place] [address] Feb, [facility] [address] [id number] [address] [place] [address], [place] [id number] Jan, [facility] [address] [id number] [address] [place] [address], [place] [address] Jan, [facility] [address] [id number] [address] [place] [address], [place] [address] Jan, [facility] [address] [id number] [address] [place] [address], [place] [id number] Jan, [facility] [address] [id number] [address] [place] [address], [place] [id number] Jan, [facility] [address] [id number] [address] [place] [address], [place] [id number] Jan, [facility] [address] [id number] [address] [place] [address], [place] [id number] Jan, [facility] [address] [id number] [address] [place] [address], [place] [id number] 25 Dec, 2012 [facility] [address] [id number] [address] [place] [address] [id number] 16 Sep2012 [facility] [address] [id number] [address] [place] [address], [place] [id number] 10 Sep2012 [facility] [address] [id number] [address] [place] [address], [place] [id number] 05 Sep2012 [facility] [address] [id number] [address] [place] [address], [place] [id number] Nov, [facility] [address] [id number] [address] [place] [address], [place] [id number] Nov, [facility] [address] [id number] [address] [place] [address], [place] [id number] Nov, [facility] [address] [id number] [address] [place] [address], [place] [id number] Nov, [facility] [address] [id number] [address] [place] [address], [place] [id number] Nov, [facility] [address] [id number] [address] [place] [address], [place] [id number] Nov, [facility] [address] [id number] [address] [place] [address], [place] [id number] Nov, [facility] [address] [id number] [address] [place] [address], [place] [id number] Oct, [facility] [address] [id number] [address] [place] [address], [place] [address] Oct, [facility] [address] [id number] [address] [place] [address], [place] [address] Oct, [facility] [address] [id number] [address] [place] [address], [place] [id number] Oct, [facility] [address] [id number] [address] [place] [address], [place] [address] Oct, [facility] [address] [id number] [address] [place] [address], [place] [id number] Oct, [facility] [address] [id number] [address] [place] [address], [place] [id number] Oct, [facility] [address] [id number] [address] [place] [address], [place] [id number] Oct, [facility] [address] [id number] [address] [place] [address], [place] [id number] Sep, Suleiman PEREZ [address] [id number] [id number] 30 Aug, 2012 [facility] [address] [id number] [address] [place] [address], [place] [id number] August, [facility] [address] [id number] [address] [place] [address], [place] [id number] Jul, [facility] [address] [id number] [address] [place] [address], [place] [address] Jul, [facility] [address] [id number] [address] [place] [address], [place] [address] Jul, [facility] [address] [id number] [address] [place] [address], [place] [id number] Jul, [facility] [address] [id number] [address] [place] [address], [place] [id number] Jul, [facility] [address] [id number] [address] [place] [address], [place] [id number] Jul, [facility] [address] [id number] [address] [place] [address], [place] [id number] 16 Jul, 2012 [facility] [address] [id number] [address] [place] [address], [place] [id number] Jun, [facility] [address] [id number] [address] [place] [address], [place] [id number] Jun, [facility] [address] [id number] [address] [place] [address], [place] [id number] Jun, [facility] [address] [id number] [address] [place] [address], [place] [address] Jun, [facility] [address] [id number] [address] [place] [address], [place] [id number] 04 Jun, 2012 [facility] [address] [id number] [address] [place] [address], [place] [id number] 19 May, 2012 [facility] [address] [id number] [address] [place] [address], [place] [id number] 18 May, 2012 [facility] [address] [id number] [address] [place] [address], [place] [id number] 04 May, 2012 [facility] [address] [id number] [address] [place] [address], [place] [id number] 15 Apr, 2012 [facility] [address] [id number] [address] [place] [address], [place] [id number] 14 Apr, 2012 [facility] [address] [id number] [address] [place] [address], [place] [id number] Apr, [facility] [address] [id number] [address] [place] [address], [place] [id number] Mar, [facility] [address] [id number] [address] [place] [address], [place] [id number] Mar, [facility] [address] [id number] [address] [place] [address], [place] [id number] Mar, [facility] [address] [id number] [address] [place] [address], [place] [id number] Mar, [facility] [address] [id number] [address] [place] [address], [place] [id number] Mar, [facility] [address] [id number] [address] [place] [address], [place] [id number] Mar, [facility] [address] [id number] [address] [place] [address], [place] [id number] Feb, [facility] [address] [id number] [address] [place] [id number] Feb, [facility] [address] [id number] [address] [place] [address], [place] [id number] Jan, [facility] [address] [id number] [address] [place] [address], [place] [id number] Jan, [facility] [address] [id number] [address] [place] [address], [place] [id number] Dec, [facility] [address] [id number] [address] [place] [address], [place] [id number] Nov, [facility] [address] [id number] [address] [place] [address], [place] [id number] Nov, [facility] [address] [id number] [address] [place] [address], [place] [id number] Nov, [facility] [address] [id number] [address] [place] [address], [place] [id number] Nov, [facility] [address] [id number] [address] [place] [address], [place] [id number] Oct, [facility] [address] [id number] [address] [place] [address], [place] [address] Oct, [facility] [address] [id number] [address] [place] [address], [place] [id number] Oct, [facility] [address] [id number] [address] [place] [address], [place] [id number] Sep, [facility] [address] [id number] [address] [place] [address], [place] [id number] Sep, [facility] [address] [id number] [address] [place] [address], [place] [id number] Sep, [facility] [address] [id number] [address] [place] [address], [place] [id number] August, [facility] [address] [id number] [address] [place] [address], [place] [id number] August, [facility] [address] [id number] [address] [place] [address], [place] [id number] Jul, [facility] [address] [id number] [address] [place] [address], [place] [id number] 24 Jul, 2011 [facility] [address] [id number] [address] [place] [address], [place] [id number] Jul, [facility] [address] [id number] [address] [place] [address], [place] [id number] Jul, [facility] [address] [id number] [address] [place] [address], [place] [id number] Jun, [facility] [address] [id number] [address] [place] [address], [place] [id number] May, [facility] [address] [id number] [address] [place] [address], [place] [id number] Apr, [facility] [address] [id number] [address] [place] [address], [place] [id number] Apr, [facility] [address] [id number] [address] [place] [address], [place] [id number] Apr, [facility] [address] [id number] [address] [place] [address], [place] [id number] Apr, [facility] [address] [id number] [address] [place] [address], [place] [id number] Apr, [facility] [address] [id number] [address] [place] [address], [place] [id number] Apr, [facility] [address] [id number] [address] [place] [address], [place] [id number] Mar, [facility] [address] [id number] [address] [place] [address], [place] [id number] Mar, [facility] [address] [id number] [address] [place] [address], [place] [id number] Feb, [facility] [address] [id number] [address] [place] [id number] Feb, [facility] [address] [id number] [address] [place] [address], [place] [id number] Feb, [facility] [address] [id number] [address] [place] [address], [place] [id number] Feb, [facility] [address] [id number] [address] [place] [address], [place] [id number] Jan, [facility] [address] [id number] [address] [place] [id number] 18 Jan, 2011 [facility] [address] [id number] [address] [place] [address], [place] [id number] 18 Jan, 2011 [facility] [address] [id number] [address] [place] [id number] 18 Jan, 2011 [facility] [address] [id number] [address] [place] [address], [place] [id number] 17 Nov, 2010 [facility] [address] [id number] [address] [place] [id number] Mar, [facility] [address] [id number] [address] [place] [address], [place] [id number] Mar, [facility] [address] [id number] [address] [place] [address], [place] [id number] 30 Feb, 2010 [facility] [address] [id number] [address] [place] [address] [id number] Feb, [facility] [address] [id number] [address] [place] [address], [place] [id number] Jan, [facility] [address] [id number] [address] [place] [phone] Jan, [facility] [address] [id number] [address] [place] [phone] Sep, [facility] [address] [id number] [address] [place] [id number] 16 May, 2009 [facility] [address] [id number] [address] [place] [phone] Apr, [facility] [address] [id number] [address] [place] [phone] Mar, [facility] [address] [id number] [address] [place] [id number] 15 Feb, 2009 [facility] [address] [id number] [address] [place] [id number] 10 Feb, 2009 [facility] [address] [id number] [address] [place] [id number] 10 Feb, 2009 [facility] [address] [facility] [id number] [address] [place] [phone] Jan, [facility] [address] [facility] [id number] [address] [place] [phone] Jan, [facility] [address] [facility] [id number] [address] [place] [phone] Jan, [facility] [address] [facility] [id number] [address] [place] [phone] Jan, [facility] [address] [facility] [id number] [address] [place] [id number] August, IMMUNIZATIONS No Known Immunizations SOCIAL HISTORY [...] age 6 Hospitalization History surgery Hospitalization History [facility], intx tie treatment few times for BH
--- OUTSIDE RECORDS SUMMARY | 2019-09-29 10:31 | XMS REPORT ---
Author Author Cameron Koth[facility] Address [address] [place] [address] Care Team Providers Care Spring Assembler Supervisor Name Role Phone Taye JULISA Unavailable PROBLEMS Type Condition ICD9-CM Code TEL42-GZ Code Onset Dates Condition S tatus SNOMED Code Problem Open-angle glaucoma of both eyes, unspecified glaucoma stage, unspecified open-angle glaucoma type H40.10X0 Acti ve 95834994 Problem Adjustment disorder, unspecified type F43.20 Active 16348784 Problem Obstructive sleep apnea G47.33 Active 23376045 Problem Hypertensive retinopathy of both eyes H35.033 Active 1413299 Problem Type 2 diabetes mellitus with complication E11.8 Active 86228928 Problem Essential hypertension I10 Active 78185528 Problem Depression F32.9 Active 91803604 Problem Intermittent explosive disorder F63.81 Active 48394566 Problem Intermittent explosive disorder in adult F63.81 Active 69118031 Problem Bipolar disorder, unspecified F31.9 Active 40484242 Problem Mild intellectual disability F70 A ctive 09779111 Problem Other specified urinary incontinence N39.498 Active 851453048 Problem Bipolar disorder, in partial remission, most rec ent episode manic F31.73 Active 96749001 Problem 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 Active 87593725 Problem Type 2 diabetes mellitus wit h diabetic neuropathy, unspecified whether emt intermediate insulin use E11.40 Active 177182 751456587 Problem Diabetes E11.9 Active 77800244 Problem Reactive airway disease, unspecified asthma justin rity, uncomplicated J45.909 Active 714121815962 Problem Reactive airway disease, mild intermittent, uncomplicated J45.20 Active 866306317 Problem Gastroesophageal reflux disease without esophagitis K21.9 Active 737892932 Problem Other diabetic neurological complication associated with type 2 diabetes mellitus E11.49 Active 712467465 Problem Neuropathy G62.9 Active [id number] ALLERGIES No Information ENCOUNTERS Encounter Location Date Diagnosis [facility] [address] [facility] [id number] [address] [place] [phone] Oct, [facility] [address] [facility] [id number] [address] [place] [phone] August, [facility] [address] [facility] [id number] [address] [place] [phone] Jul, Type 2 diabetes mellitus wit h diabetic neuropathy, unspecified whether half-way insulin use E11.40 and Colon cancer screening Z12.11 [facility] [address] [facility] [id number] [address] [place] [phone] 10 Jul, 2019 Type 2 diabetes mellitus wit h diabetic neuropathy, unspecified whether half-way insulin use E11.40 and Tinea pedis, unspecified laterality B35.3 [facility] [address] [place] [id number] [address] [place] [phone] 10 Jun, 2019 [facility] [address] [facility] [id number] [address] [place] [phone] Jun, [facility] [address] [facility] [id number] [address] [place] [phone] 04 Jun, 2019 Dysuria R30.0 [facility] [address] [facility] [id number] [address] [place] [id number] 02 Jun, 2019 [facility] [address] [place] [id number] [address] [place] [phone] 20 May, 2019 Influenza J11.1 [facility] [address] [facility] [id number] [address] [place] [id number] 13 May, 2019 Intermittent explosive disor salvatore in adult F63.81 [facility] [address] [place] [id number] [address] [place] [id number] 12 May, 2019 [facility] [address] [facility] [id number] [address] [place] [phone] Apr, Intermittent explosive disor salvatore in adult F63.81 ; Bipolar disorder, unspecified F31.9 and Mild intellectual disability F70 [facility] [id number] [place] [id number] Apr, Oral health maintenance stat us requiring routine preventive dental care K08.9 [facility] [address] [id number] [address] [place] [id number] 20 Apr, 2019 Type 2 diabetes mellitus wit h complication E11.8 ; History of test for hearing Z92.89 ; Colon cancer screening Z12.11 ; Other specified urinary incontinence N39.498 and Impacted cerumen, right ear H61.21 [facility] [address] [id number] [address] [place] [id number] 10 Apr, 2019 Onychomycosis B35.1 ; Other diabetic neurological complication associated with type 2 diabetes mellitus E11.49 and Tinea pedis of both feet B35.3 [facility] [address] [id number] [address] [place] [phone] Feb, [facility] [address] [id number] [address] [place] [phone] Jan, [facility] [address] [id number] [address] [place] [id number] Jan, [facility] [address] [id number] [address] [place] [id number] Jan, [facility] [address] [id number] [address] [place] [phone] Jan, [facility] [address] [id number] [address] [place] [phone] Jan, [facility] [address] [id number] [address] [place] [id number] Jan, [facility] [address] [id number] [address] [place] [phone] Jan, [facility] [address] [facility] [id number] [address] [place] [id number] 07 Jan, 2019 Anemia D64.9 [facility] [id number] [place] [phone] 04 Jan, 2019 Dental examination Z01.20 an d Oral health maintenance status requiring routine preventive dental care K08.9 [place] [address] [facility] [id number] [address] [place] [phone] Jan, Onychomycosis B35.1 and Othe r diabetic neurological complication associated with type 2 diabetes mellitus E11.49 [place] [address] [facility] [id number] [address] [place] [phone] Jan, Anemia D64.9 [facility] [address] [facility] [id number] [address] [place] [phone] Jan, [place] [address] [place] [id number] [address] [place] [id number] Dec, Urinary tract infection with out hematuria, site unspecified N39.0 [place] [address] [place] [id number] [address] [place] [phone] Dec, Type 2 diabetes mellitus wit h complication E11.8 ; Urinary tract infection without hematuria, site unspecified N39.0 ; Impacted cerumen of both ears H61.23 ; Encounter for immunization Z23 and Hyponatremia E87.1 [place] [address] [facility] [id number] [address] [place] [phone] Dec, Intermittent explosive disor salvatore in adult F63.81 ; Dysuria R30.0 ; Type 2 diabetes mellitus with complication E11.8 ; Bipolar disorder, unspecified F31.9 and Mild intellectual disability F70 [place] [address] [facility] [id number] [address] [place] [phone] Dec, Dysuria R30.0 [place] [address] [place] [id number] [address] [place] [phone] Dec, Intermittent explosive disor salvatore in adult F63.81 ; Bipolar disorder, unspecified F31.9 and Mild intellectual disability F70 [place] [address] [place] [id number] [address] [place] [phone] Nov, [facility] [address] [facility] [id number] [address] [place] [phone] Oct, [facility] [id number] [place] [phone] Oct, Oral health maintenance stat us requiring routine preventive dental care K08.9 [facility] [address] [facility] [id number] [address] [place] [phone] August, Intermittent explosive disor salvatore in adult F63.81 ; Bipolar disorder, unspecified F31.9 and Mild intellectual disability F70 [facility] [address] [id number] [address] [place] [address] [phone] August, Dental caries K02.9 [facility] [address] [facility] [id number] [address] [place] [phone] Jul, Onychomycosis B35.1 ; Other diabetic neurological complication associated with type 2 diabetes mellitus E11.49 and Tinea pedis of both feet B35.3 [facility] [address] [id number] [address] [place] [address] [id number] Jul, Caries K02.9 [facility] [address] [facility] [id number] [address] [place] [phone] Jul, Type 2 diabetes mellitus wit h complication E11.8 ; Tobacco abuse Z72.0 and Bipolar disorder, unspecified F31.9 [facility] [address] [facility] [id number] [address] [place] [phone] Jun, [facility] [address] [facility] [id number] [address] [place] [address] [id number] Jun, Dental examination Z01.20 an d Oral health maintenance status requiring routine preventive dental care K08.9 [facility] [address] [facility] [id number] [address] [place] [phone] May, Bilateral impacted cerumen H 61.23 [facility] [address] [facility] [id number] [address] [place] [phone] Apr, Bipolar disorder, unspecifie d F31.9 ; Intermittent explosive disorder in adult F63.81 ; Type 2 diabetes mellitus with complication E11.8 ; Tobacco abuse Z72.0 and Colon cancer screening Z12.11 [facility] [address] [place] [id number] [address] [place] [id number] Apr, Onychomycosis B35.1 and Othe r diabetic neurological complication associated with type 2 diabetes mellitus E11.49 [facility] [address] [place] [id number] [address] [place] [phone] Apr, Intermittent explosive disor aslvatore in adult F63.81 ; Bipolar disorder, unspecified F31.9 and Mild intellectual disability F70 [place] [address] [phone] Mar, Diabetes E11.9 [facility] [address] [place] [id number] [address] [place] [phone] Jan, Encounter for immunization Z 23 [facility] [address] [address] Jan, Tinea pedis of both feet B35 .3 ; Other diabetic neurological complication associated with type 2 diabetes mellitus E11.49 and Onychomycosis B35.1 [facility] [address] [place] [id number] [address] [place] [phone] Nov, Type 2 diabetes mellitus wit h complication E11.8 [facility] [address] [place] [id number] [address] [place] [phone] Nov, [facility] [address] [place] [id number] [address] [place] [phone] Oct, Intermittent explosive disor salvatore in adult F63.81 ; Bipolar disorder, unspecified F31.9 and Mild intellectual disability F70 [facility] [id number] [place] [phone] Oct, [facility] [address] [place] [id number] [address] [place] [address] [id number] 11 Alexis, 2018 Dental examination Z01.20 [facility] [address] [facility] [id number] [address] [place] [id number] 06 Oct, 2017 Onychomycosis B35.1 and Othe r diabetic neurological complication associated with type 2 diabetes mellitus E11.49 [facility] [address] [place] [id number] [address] [place] [phone] 19 Sep, 2017 Type 2 diabetes mellitus wit h complication E11.8 and Colon cancer screening Z12.11 [facility] [address] [place] [id number] [address] [place] [phone] 18 Sep, 2017 Type 2 diabetes mellitus wit h complication E11.8 ; Colon cancer screening Z12.11 and Neuropathy G62.9 [place] [address] [place] [id number] [address] [place] [phone] August, Diabetes E11.9 [facility] [id number] [place] [address] [phone] Jul, Dental examination Z01.20 [facility] [address] [place] [id number] [address] [place] [id number] 27 May, 2017 Mild intellectual disability F70 [place] [address] [id number] 07 May, 2017 Mild intellectual disability F70 ; High risk medication use Z79.899 ; Intermittent explosive disorder in adult F63.81 and Bipolar disorder, unspecified F31.9 [place] [id number] [place] [phone] May, [place] [address] [place] [id number] [address] [place] [phone] May, [place] [address] [phone] Apr, Type 2 diabetes mellitus wit h complication E11.8 ; Mild intellectual disability F70 ; Gastroesophageal reflux disease without esophagitis K21.9 ; Reactive airway disease, mild intermittent, uncomplicated J45.20 and Tobacco abuse Z72.0 [place] [address] [place] [id number] [address] [place] [phone] Apr, High risk medication use Z79 .899 ; Mild intellectual disability F70 ; Intermittent explosive disorder in adult F63.81 and Bipolar disorder, unspecified F31.9 [facility] [address] [id number] [address] [place] [address] [id number] Mar, Encounter for dental exam an d cleaning w/o abnormal findings Z01.20 [facility] [address] [id number] [address] [place] [address] [id number] Mar, Dental examination Z01.20 [facility] [address] [id number] [address] [place] [phone] 12 Jan, 2017 [facility] [address] [id number] [address] [place] [phone] Jan, [facility] [address] [id number] [address] [place] [phone] Jan, Mild intellectual disability F70 ; Bipolar disorder, unspecified F31.9 and Intermittent explosive disorder in adult F63.81 [facility] [address] [id number] [address] [place] [phone] Jan, Diabetes E11.9 [facility] [address] [id number] [address] [place] [address] [id number] Dec, Encounter for dental examina tion and cleaning without abnormal findings Z01.20 [facility] [address] [id number] [address] [place] [id number] Dec, Bipolar disorder, unspecifie d F31.9 ; Intermittent explosive disorder in adult F63.81 and Mild intellectual disability F70 [facility] [address] [id number] [address] [place] [phone] Nov, Diabetes E11.9 [facility] [address] [id number] [address] [place] [phone] Nov, [facility] [address] [id number] [address] [place] [id number] 14 Nov, 2016 Diabetes E11.9 and Colon can cer screening Z12.11 [facility] [address] [id number] [id number] 21 Sep, 2016 Dental examination Z01.20 [facility] [address] [id number] [address] [place] [address] [id number] 21 Sep, 2016 Encounter for dental examina tion and cleaning without abnormal findings Z01.20 [facility] [address] [id number] [address] [place] [phone] 13 Sep, 2016 Bipolar disorder, unspecifie d F31.9 [facility] [address] [id number] [address] [place] [phone] 12 Sep, 2016 Bipolar disorder, unspecifie d F31.9 [facility] [address] [facility] [id number] [address] [place] [phone] Jul, [facility] [address] [facility] [id number] [address] [place] [phone] Jul, Type 2 diabetes mellitus wit h complication E11.8 [facility] [address] [id number] [address] [place] [address] [id number] 15 Jun, 2016 Encounter for dental examina tion and cleaning without abnormal findings Z01.[address] [id number] [id number] 15 Jun, 2016 Dental examination Z01.20 [facility] [address] [facility] [id number] [address] [place] [id number] 18 Apr, 2016 Sports physical Z02.5 [facility] [address] [facility] [id number] [address] [place] [phone] 14 Mar, 2016 Bipolar disorder, in partial remission, most recent episode manic F31.73 and Intermittent explosive disorder in adult F63.81 [facility] [address] [id number] [address] [place] [id number] 08 Mar, 2016 [facility] [address] [facility] [id number] [address] [place] [phone] Mar, Diabetes E11.9 [facility] [address] [id number] [address] [place] [address] [phone] Feb, Encounter for dental examina tion and cleaning without abnormal findings Z01.20 [facility] [address] [id number] [address] [place] [id number] 22 Dec, 2015 Nocturnal hypoxemia G47.34 a nd Encounter for immunization Z23 [facility] [address] [id number] [address] [place] [id number] 15 Dec, 2015 [facility] [address] [id number] [address] [place] [id number] Dec, [facility] [address] [facility] [id number] [address] [place] [phone] Dec, Bipolar disorder, unspecifie d F31.9 [facility] [address] [facility] [id number] [place] [address] [id number] Oct, Encounter for dental examina tion and cleaning without abnormal findings Z01.[id number] [place] [address] [id number] Oct, Dental examination Z01.20 [facility] [address] [facility] [id number] [address] [place] [id number] Oct, Diabetes E11.9 [facility] [address] [facility] [id number] [address] [place] [phone] Oct, Diabetes E11.9 ; Reactive ai rway disease, mild intermittent, uncomplicated J45.20 and Tobacco abuse Z72.0 [facility] [address] [facility] [id number] [address] [place] [phone] Sep, Bipolar disorder, unspecifie d F31.9 and Depression F32.9 [facility] [address] [facility] [id number] [address] [place] [phone] Sep, [facility] [address] [facility] [id number] [address] [place] [phone] August, Tinea pedis of both feet B35 .3 and DM w/o complication type II, uncontrolled E11.65 [place] [address] [phone] Jul, [place] [address] [address] Jul, [place] [address] [id number] Jul, Obstructive sleep apnea G47. 33 [place] [address] [address] Jun, Diabetes E11.9 [place] [address] [id number] Jun, [place] [address] [id number] Jun, [place] [address] [address] Jun, Bipolar disorder, unspecifie d F31.9 and Mental retardation F79 [place] [address] [id number] Apr, [place] [address] [address] Feb, Diabetes E11.9 ; Encounter f or immunization Z23 ; Cough R05 and Nicotine abuse Z72.0 [place] [address] [address] Jan, Bipolar disorder, unspecifie d F31.9 and Diabetes mellitus without mention of complication, type II or unspecified type, uncontrolled 250.02 [place] [address] [address] Jan, [place] [address] [address] Dec, Reactive airway disease 493. 90 and Enuresis 788.30 [facility] [address] [facility] [id number] [address] [place] [id number] Dec, [facility] [address] [facility] [id number] [address] [place] [phone] Nov, [facility] [address] [facility] [id number] [address] [place] [phone] Nov, [facility] [address] [facility] [id number] [place] [phone] Nov, Annual physical exam V70.0 ; Urinary incontinence 788.30 ; Diabetes 250.00 and Hypertension 401.9 [facility] [address] [place] [id number] [place] [address] Oct, Diabetes mellitus without me ntion of complication, type II or unspecified type, uncontrolled 250.02 [facility] [address] [address] Oct, Diabetes mellitus without me ntion of complication, type II or unspecified type, uncontrolled 250.02 [facility] [address] [place] [id number] [address] [place] [id number] Oct, Diabetes mellitus without me ntion of complication, type II or unspecified type, uncontrolled 250.02 [facility] [address] [place] [id number] [address] [place] [phone] Oct, [facility] [address] [place] [id number] [address] [place] [id number] Oct, [facility] [address] [facility] [id number] [address] [place] [phone] Oct, Bipolar disorder, unspecifie d 296.80 [facility] [address] [place] [id number] [address] [place] [address] [id number] Sep, Dental examination V72.2 [facility] [address] [facility] [id number] [address] [place] [id number] August, [facility] [address] [place] [address] [id number] August, Dental examination V72.2 [facility] [address] [id number] [address] [place] [phone] August, [facility] [address] [id number] [address] [place] [phone] [id number] Jul, 2014 [facility] [address] [id number] [address] [place] [phone] Jul, [facility] [address] [id number] [address] [place] [phone] 17 Jun, 2014 [facility] [address] [id number] [address] [place] [phone] Jun, [facility] [address] [id number] [address] [place], [place] [address] Jun, [facility] [address] [id number] [address] [place] [address] Jun, [facility] [address] [id number] [address] [place] [address] May, [facility] [address] [id number] [address] [place] [id number] 23 May, 2014 [facility] [address] [id number] [address] [place] [id number] 16 May, 2014 [facility] [address] [id number] [address] [place] [id number] May, 2014 [facility] [address] [id number] [address] [place] [id number] May, [facility] [address] [id number] [address] [place] [id number] 16 May, 2014 [facility] [address] [id number] [address] [place] [id number] 16 May, 2014 [facility] [address] [id number] [address] [place] [id number] May, 2014 [facility] [address] [id number] [address] [place] [address], [place] [address] May, 2014 [facility] [address] [id number] [address] [place] [address], [place] [address] May, 2014 [facility] [address] [id number] [address] [place] [address], [place] [address] May, 2014 [facility] [address] [id number] [address] [place] [address], [place] [address] May, 2014 [facility] [address] [id number] [address] [place] [address], [place] [address] May, 2014 [facility] [address] [id number] [address] [place] [address], [place] [address] May, 2014 [facility] [address] [id number] [address] [place] [address], [place] [address] May, [facility] [address] [id number] [address] [place] [address], [place] [address] Apr, [facility] [address] [id number] [address] [place] [address], [place] [address] Apr, [facility] [address] [id number] [address] [place] [address], [place] [address] Apr, [facility] [address] [id number] [address] [place] [address], [place] [address] Apr, [facility] [address] [id number] [address] [place] [id number] Apr, [facility] [address] [id number] [address] [place] [address], [place] [address] Apr, [facility] [address] [id number] [address] [place] [address], [place] [address] Apr, [facility] [address] [id number] [address] [place] [id number] Apr, [facility] [address] [id number] [address] [place] [address], [place] [address] Apr, [facility] [address] [id number] [address] [place] [address], [place] [address] Apr, [facility] [address] [id number] [address] [place] [address], [place] [address] Apr, [facility] [address] [id number] [address] [place] [address], [place] [address] Apr, [facility] [address] [id number] [address] [place] [address], [place] [address] Mar, [facility] [address] [id number] [address] [place] [address], [place] [address] Mar, [facility] [address] [id number] [address] [place] [address], [place] [address] Mar, [facility] [address] [id number] [address] [place] [address], [place] [address] Mar, [facility] [address] [id number] [address] [place] [address], [place] [address] Mar, [facility] [address] [id number] [address] [place] [address], [place] [address] Mar, [facility] [address] [id number] [address] [place] [address], [place] [address] Feb, [facility] [address] [id number] [address] [place] [address], [place] [address] Feb, [facility] [address] [id number] [address] [place] [address], [place] [address] Feb, [facility] [address] [id number] [address] [place] [address], [place] [address] Feb, [facility] [address] [id number] [address] [place] [address], [place] [address] 14 Jan, 2014 [facility] [address] [id number] [address] [place] [address], [place] [address] 14 Jan, 2014 [facility] [address] [id number] [address] [place] [address], [place] [address] 14 Jan, 2014 [facility] [address] [id number] [address] [place] [address], [place] [address] Jan, [facility] [address] [id number] [address] [place] [address], [place] [address] Dec, [facility] [address] [id number] [address] [place] [address], [place] [address] Dec, [facility] [address] [id number] [address] [place] [address], [place] [address] Dec, [facility] [address] [id number] [address] [place] [address], [place] [address] Dec, [facility] [address] [id number] [address] [place] [address], [place] [address] Nov, [facility] [address] [id number] [address] [place] [address], [place] [address] Nov, [facility] [address] [id number] [address] [place] [address], [place] [address] Nov, [facility] [address] [id number] [address] [place] [address], [place] [address] Nov, [facility] [address] [id number] [address] [place] [address], [place] [address] Nov, [facility] [address] [id number] [address] [place] [address], [place] [address] Nov, [facility] [address] [id number] [address] [place] [address], [place] [address] Nov, [facility] [address] [id number] [address] [place] [address], [place] [address] Oct, [facility] [address] [id number] [address] [place] [address], [place] [address] Oct, [facility] [address] [id number] [facility] [place] [address] Oct, [facility] [address] [id number] [facility] [place] [address] Oct, [facility] [address] [id number] [address] [place] [address], [place] [address] Oct, [facility] [address] [id number] [address] [place] [address], [place] [address] Oct, [facility] [address] [id number] [address] [place] [address], [place] [address] Oct, [facility] [address] [id number] [address] [place] [address], [place] [address] Sep, [facility] [address] [id number] [address] [place] [address], [place] [address] Sep, [facility] [address] [id number] [address] [place] [address], [place] [address] Sep, [facility] [address] [id number] [address] [place] [address], [place] [address] Sep, [facility] [address] [id number] [address] [place] [address], [place] [address] Sep, [facility] [address] [id number] [address] [place] [address], [place] [address] Jul, [facility] [address] [id number] [address] [place] [address], [place] [address] Jul, [facility] [address] [id number] [address] [place] [address], [place] [address] Jul, [facility] [address] [id number] [address] [place] [address], [place] [address] Jul, [facility] [address] [id number] [address] [place] [address], [place] [address] Jul, [facility] [address] [id number] [address] [place] [address], [place] [address] Jul, [facility] [address] [id number] [facility] [place] [address] Jul, [facility] [address] [id number] [facility] [place] [address] Jul, [facility] [address] [id number] [facility] [place] [address] Jul, [facility] [address] [id number] [address] [place] [address], [place] [address] Jul, [facility] [address] [id number] [address] [place] [address], [place] [address] Jul, [facility] [address] [id number] [address] [place] [address], [place] [address] Jul, [facility] [address] [id number] [address] [place] [address], [place] [address] Jun, [facility] [address] [id number] [address] [place] [address], [place] [address] Jun, [facility] [address] [id number] [address] [place] [address], [place] [address] Jun, [facility] [address] [id number] [address] [place] [address], [place] [address] Jun, [facility] [address] [id number] [address] [place] [address], [place] [address] Jun, [facility] [address] [id number] [address] [place] [address], [place] [address] Jun, [facility] [address] [id number] [address] [place] [address], [place] [address] Jun, [facility] [address] [id number] [address] [place] [address], [place] [address] Jun, [facility] [address] [id number] [address] [place] [address], [place] [address] May, [facility] [address] [id number] [address] [place] [address], [place] [address] May, [facility] [address] [id number] [address] [place] [address], [place] [address] May, [facility] [address] [id number] [address] [place] [address], [place] [address] May, [facility] [address] [id number] [address] [place] [address], [place] [address] May, [facility] [address] [id number] [address] [place] [address], [place] [address] May, [facility] [address] [id number] [address] [place] [address], [place] [address] May, [facility] [address] [id number] [address] [place] [address], [place] [address] May, [facility] [address] [id number] [address] [place] [address], [place] [address] Apr, [facility] [address] [id number] [address] [place] [address], [place] [address] Apr, [facility] [address] [id number] [address] [place] [address], [place] [address] Apr, [facility] [address] [id number] [address] [place] [address], [place] [address] Apr, [facility] [address] [id number] [address] [place] [address], [place] [address] Mar, [facility] [address] [id number] [address] [place] [address], [place] [address] Mar, [facility] [address] [id number] [address] [place] [address], [place] [address] Mar, [facility] [address] [id number] [address] [place] [address], [place] [address] Feb, [facility] [address] [id number] [address] [place] [address], [place] [address] Feb, [facility] [address] [id number] [address] [place] [address], [place] [address] Feb, [facility] [address] [id number] [address] [place] [address], [place] [address] Feb, [facility] [address] [id number] [address] [place] [address], [place] [address] Feb, [facility] [address] [id number] [address] [place] [address], [place] [address] Feb, [facility] [address] [id number] [address] [place] [address], [place] [address] Jan, [facility] [address] [id number] [address] [place] [address], [place] [address] Jan, [facility] [address] [id number] [address] [place] [address], [place] [address] Jan, [facility] [address] [id number] [address] [place] [address], [place] [address] Jan, [facility] [address] [id number] [address] [place] [address], [place] [address] Jan, [facility] [address] [id number] [address] [place] [address], [place] [address] Jan, [facility] [address] [id number] [address] [place] [address], [place] [address] Jan, [facility] [address] [id number] [address] [place] [address], [place] [address] 25 Dec, 2012 [facility] [address] [id number] [address] [place] [address], [place] [address] 16 Sep2012 [facility] [address] [id number] [address] [place] [address], [place] [address] 10 Sep2012 [facility] [address] [id number] [address] [place] [address], [place] [address] 05 Sep2012 [facility] [address] [id number] [address] [place] [address] [place] [address] Nov, [facility] [address] [id number] [address] [place] [address], [place] [address] Nov, [facility] [address] [id number] [address] [place] [address], [place] [address] Nov, [facility] [address] [id number] [address] [place] [address], [place] [address] Nov, [facility] [address] [id number] [address] [place] [address], [place] [address] Nov, [facility] [address] [id number] [address] [place] [address], [place] [address] Nov, [facility] [address] [id number] [address] [place] [address], [place] [address] Nov, [facility] [address] [id number] [address] [place] [address], [place] [address] Oct, [facility] [address] [id number] [address] [place] [address], [place] [address] Oct, [facility] [address] [id number] [address] [place] [address], [place] [address] Oct, [facility] [address] [id number] [address] [place] [address], [place] [address] Oct, [facility] [address] [id number] [address] [place] [address], [place] [address] Oct, [facility] [address] [id number] [address] [place] [address], [place] [address] Oct, [facility] [address] [id number] [address] [place] [address], [place] [address] Oct, [facility] [address] [id number] [address] [place] [address], [place] [address] Oct, [facility] [address] [id number] [address] [place] [address], [place] [address] Sep, Suleiman PEREZ [address] [id number] [place] [id number] August, [facility] [address] [id number] [address] [place] [address], [place] [address] August, [facility] [address] [id number] [address] [place] [address], [place] [address] Jul, [facility] [address] [id number] [address] [place] [address], [place] [address] Jul, [facility] [address] [id number] [address] [place] [address], [place] [address] Jul, [facility] [address] [id number] [address] [place] [address], [place] [address] Jul, [facility] [address] [id number] [address] [place] [address], [place] [address] Jul, [facility] [address] [id number] [address] [place] [address], [place] [address] Jul, [facility] [address] [id number] [address] [place] [address], [place] [address] Jul, [facility] [address] [id number] [address] [place] [address], [place] [address] Jun, [facility] [address] [id number] [address] [place] [address], [place] [address] Jun, [facility] [address] [id number] [address] [place] [address], [place] [address] Jun, [facility] [address] [id number] [address] [place] [address], [place] [address] Jun, [facility] [address] [id number] [address] [place] [address], [place] [address] Jun, [facility] [address] [id number] [address] [place] [address] May, [facility] [address] [id number] [address] [place] [address] 18 May, 2012 [facility] [address] [id number] [address] [place] [address], [place] [address] 04 May, 2012 [facility] [address] [id number] [address] [place] [address], [place] [address] 15 Apr, 2012 [facility] [address] [id number] [address] [place] [address], [place] [address] 14 Apr, 2012 [facility] [address] [id number] [address] [place] [address], [place] [address] 07 Apr, 2012 [facility] [address] [id number] [address] [place] [address], [place] [address] Mar, [facility] [address] [id number] [address] [place] [address], [place] [address] Mar, [facility] [address] [id number] [address] [place] [address], [place] [address] Mar, [facility] [address] [id number] [address] [place] [address], [place] [address] Mar, [facility] [address] [id number] [address] [place] [address], [place] [address] Mar, [facility] [address] [id number] [address] [place] [address], [place] [address] Mar, [facility] [address] [id number] [address] [place] [address], [place] [address] Feb, [facility] [address] [id number] [address] [place] [address] Feb, [facility] [address] [id number] [address] [place] [address], [place] [address] Jan, [facility] [address] [id number] [address] [place] [address], [place] [address] Jan, [facility] [address] [id number] [address] [place] [address], [place] [address] 25 Dec, 2011 [facility] [address] [id number] [facility] [place] [address] Nov, [facility] [address] [id number] [address] [place] [address], [place] [address] Nov, [facility] [address] [id number] [address] [place] [address], [place] [address] Nov, [facility] [address] [id number] [address] [place] [address], [place] [address] Nov, [facility] [address] [id number] [address] [place] [address], [place] [address] Oct, [facility] [address] [id number] [address] [place] [address], [place] [address] Oct, [facility] [address] [id number] [address] [place] [address], [place] [address] Oct, [facility] [address] [id number] [address] [place] [address], [place] [address] Sep, [facility] [address] [id number] [address] [place] [address], [place] [address] Sep, [facility] [address] [id number] [address] [place] [address], [place] [address] Sep, [facility] [address] [id number] [address] [place] [address], [place] [address] August, [facility] [address] [id number] [address] [place] [address], [place] [address] August, [facility] [address] [id number] [address] [place] [address], [place] [address] Jul, [facility] [address] [id number] [address] [place] [address], [place] [address] Jul, [facility] [address] [id number] [address] [place] [address], [place] [address] Jul, [facility] [address] [id number] [address] [place] [address], [place] [address] Jul, [facility] [address] [id number] [address] [place] [address], [place] [address] Jun, [facility] [address] [id number] [address] [place] [address], [place] [address] May, [facility] [address] [id number] [address] [place] [address], [place] [address] Apr, [facility] [address] [id number] [address] [place] [address], [place] [address] Apr, [facility] [address] [id number] [address] [place] [address], [place] [address] Apr, [facility] [address] [id number] [address] [place] [address], [place] [address] Apr, [facility] [address] [id number] [address] [place] [address], [place] [address] Apr, [facility] [address] [id number] [address] [place] [address], [place] [address] Apr, [facility] [address] [id number] [address] [place] [address], [place] [address] Mar, [facility] [address] [id number] [address] [place] [address], [place] [address] Mar, [facility] [address] [id number] [address] [place] [address], [place] [address] Feb, [facility] [address] [id number] [address] [place] [address], [place] [address] Feb, [facility] [address] [id number] [address] [place] [address], [place] [address] Feb, [facility] [address] [id number] [address] [place] [address], [place] [address] 09 Feb, 2011 [facility] [address] [id number] [address] [place] [address], [place] [address] Jan, [facility] [address] [id number] [address] [place] [address], [place] [address] 18 Jan, 2011 [facility] [address] [id number] [address] [place] [address], [place] [address] 18 Jan, 2011 [facility] [address] [id number] [address] [place] [address], [place] [address] 18 Jan, 2011 [facility] [address] [id number] [address] [place] [address], [place] [address] 17 Nov, 2010 [facility] [address] [id number] [address] [place] [address], [place] [address] Mar, [facility] [address] [id number] [address] [place] [address], [place] [address] Mar, [facility] [address] [id number] [address] [place] [address], [place] [address] Feb, [facility] [address] [id number] [address] [place] [address], [place] [address] 15 Feb, 2010 [facility] [address] [id number] [address] [place] [address], [place] [address] Jan, [facility] [address] [address] [id number] [address] [place] [address], [place] [phone] Jan, [facility] [address] [id number] [address] [place] [address], [place] [id number] Sep, [facility] [address] [id number] [address] [place] [address], [place] [id number] 16 May, 2009 [facility] [address] [id number] [address] [place] [address], [place] [phone] Apr, [facility] [address] [id number] [address] [place] [address], [place] [phone] Mar, [facility] [address] [id number] [address] [place] [address], [place] [phone] 15 Feb, 2009 [facility] [address] [id number] [address] [place] [address], [place] [phone] Feb, [facility] [address] [facility] [id number] [address] [place] [phone] Feb, [facility] [address] [facility] [id number] [address] [place] [phone] 22 Jan, 2009 [facility] [address] [facility] [id number] [address] [place] [phone] Jan, [facility] [address] [facility] [id number] [address] [place] [phone] Jan, [facility] [address] [facility] [id number] [address] [place] [id number] Jan, [facility] [address] [facility] [id number] [address] [place] [phone] August, IMMUNIZATIONS No Known Immunizations SOCIAL HISTORY [...] age 6 Hospitalization History surgery Hospitalization History [facility], [place] tie treatment few times for BH
--- OUTSIDE RECORDS SUMMARY | 2019-09-29 10:32 | XMS REPORT ---
Author Author Cameron ALANIZ [facility] Address [address] [place] [address] Care Team Providers Care Advertising Associate Name Role Phone JEET ALANIZ Unavailable PROBLEMS Type Condition ICD9-CM Code XZO87-CT Code Onset Dates Condition S tatus SNOMED Code Problem Open-angle glaucoma of both eyes, unspecified glaucoma stage, unspecified open-angle glaucoma type H40.10X0 Acti ve 71730255 Problem Adjustment disorder, unspecified type F43.20 Active 52058694 Problem Obstructive sleep apnea G47.33 Active 55193481 Problem Hypertensive retinopathy of both eyes H35.033 Active 2889475 Problem Type 2 diabetes mellitus with complication E11.8 Active 33395692 Problem Essential hypertension I10 Active 20191151 Problem Depression F32.9 Active 72196301 Problem Intermittent explosive disorder F63.81 Active 15702682 Problem Intermittent explosive disorder in adult F63.81 Active 30124670 Problem Bipolar disorder, unspecified F31.9 Active 14118120 Problem Mild intellectual disability F70 A ctive 48360262 Problem Other specified urinary incontinence N39.498 Active 866494760 Problem Bipolar disorder, in partial remission, most rec ent episode manic F31.73 Active 39344502 Problem 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 Active 84221070 Problem Type 2 diabetes mellitus wit h diabetic neuropathy, unspecified 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 operations 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 insulin use E11.40 Active 546101 519948273 Problem Diabetes E11.9 Active 71563315 Problem Reactive airway disease, unspecified asthma justin rity, uncomplicated J45.909 Active 195045931174 Problem Reactive airway disease, mild intermittent, uncomplicated J45.20 Active 883386679 Problem Gastroesophageal reflux disease without esophagitis K21.9 Active 501451033 Problem Other diabetic neurological complication associated with type 2 diabetes mellitus E11.49 Active 029538541 Problem Neuropathy G62.9 Active [id number] ALLERGIES No Information ENCOUNTERS Encounter Location Date Diagnosis [facility] [address] [facility] [id number] [address] [place] [phone] Oct, [facility] [address] [facility] [id number] [address] [place] [phone] August, [facility] [address] [facility] [id number] [address] [place] [id number] Jul, Type 2 diabetes mellitus wit h diabetic neuropathy, unspecified whether halfway insulin use E11.40 and Colon cancer screening Z12.11 [facility] [address] [facility] [id number] [address] [place] [phone] 10 Jul, 2019 Type 2 diabetes mellitus wit h diabetic neuropathy, unspecified whether halfway insulin use E11.40 and Tinea pedis, unspecified laterality B35.3 [facility] [address] [facility] [id number] [address] [place] [phone] 10 Jun, 2019 [facility] [address] [facility] [id number] [address] [place] [phone] Jun, [facility] [address] [facility] [id number] [address] [place] [phone] 04 Jun, 2019 Dysuria R30.0 [facility] [address] [facility] [id number] [address] [place] [phone] 02 Jun, 2019 [facility] [address] [facility] [id number] [address] [place] [phone] 20 May, 2019 Influenza J11.1 [facility] [address] [place] [id number] [address] [place] [id number] 13 May, 2019 Intermittent explosive disor salvatore in adult F63.81 [facility] [address] [facility] [id number] [address] [place] [phone] 12 May, 2019 [facility] [address] [facility] [id number] [address] [place] [phone] Apr, Intermittent explosive disor salvatore in adult F63.81 ; Bipolar disorder, unspecified F31.9 and Mild intellectual disability F70 [facility] [id number] [place] [id number] Apr, Oral health maintenance stat us requiring routine preventive dental care K08.9 [facility] [address] [id number] [address] [place] [phone] 20 Apr, 2019 Type 2 diabetes mellitus wit h complication E11.8 ; History of test for hearing Z92.89 ; Colon cancer screening Z12.11 ; Other specified urinary incontinence N39.498 and Impacted cerumen, right ear H61.21 [facility] [address] [id number] [address] [place] [id number] Apr, Onychomycosis B35.1 ; Other diabetic neurological complication associated with type 2 diabetes mellitus E11.49 and Tinea pedis of both feet B35.3 [facility] [address] [id number] [address] [place] [phone] Feb, [facility] [address] [id number] [address] [place] [phone] Jan, [facility] [address] [id number] [address] [place] [phone] Jan, [facility] [address] [id number] [address] [place] [phone] Jan, [facility] [address] [id number] [address] [place] [phone] Jan, [facility] [address] [id number] [address] [place] [phone] Jan, [facility] [address] [id number] [address] [place] [phone] Jan, [facility] [address] [id number] [address] [place] [phone] Jan, [facility] [address] [id number] [address] [place] [phone] Jan, Anemia D64.9 [facility] [id number] [place] [phone] 04 Jan, 2019 Dental examination Z01.20 an d Oral health maintenance status requiring routine preventive dental care K08.9 [place] [address] [place] [id number] [address] [place] [phone] Jan, Onychomycosis B35.1 and Othe r diabetic neurological complication associated with type 2 diabetes mellitus E11.49 [place] [address] [place] [id number] [address] [place] [phone] Jan, Anemia D64.9 [place] [address] [place] [id number] [address] [place] [id number] Jan, [place] [address] [place] [id number] [address] [place] [phone] Dec, Urinary tract infection with out hematuria, site unspecified N39.0 [place] [address] [place] [id number] [address] [place] [phone] Dec, Type 2 diabetes mellitus wit h complication E11.8 ; Urinary tract infection without hematuria, site unspecified N39.0 ; Impacted cerumen of both ears H61.23 ; Encounter for immunization Z23 and Hyponatremia E87.1 [place] [address] [place] [id number] [address] [place] [phone] Dec, Intermittent explosive disor salvatore in adult F63.81 ; Dysuria R30.0 ; Type 2 diabetes mellitus with complication E11.8 ; Bipolar disorder, unspecified F31.9 and Mild intellectual disability F70 [place] [address] [place] [id number] [address] [place] [phone] Dec, Dysuria R30.0 [place] [address] [place] [id number] [address] [place] [phone] Dec, Intermittent explosive disor salvatore in adult F63.81 ; Bipolar disorder, unspecified F31.9 and Mild intellectual disability F70 [place] [address] [place] [id number] [address] [place] [phone] Nov, [facility] [address] [id number] [address] [place] [phone] Oct, [facility] [address] [facility] [id number] [place] [id number] Oct, Oral health maintenance stat us requiring routine preventive dental care K08.9 [facility] [address] [facility] [id number] [address] [place] [phone] August, Intermittent explosive disor salvatore in adult F63.81 ; Bipolar disorder, unspecified F31.9 and Mild intellectual disability F70 [facility] [address] [facility] [id number] [address] [place] [address] [id number] August, Dental caries K02.9 [facility] [address] [facility] [id number] [address] [place] [phone] Jul, Onychomycosis B35.1 ; Other diabetic neurological complication associated with type 2 diabetes mellitus E11.49 and Tinea pedis of both feet B35.3 [facility] [address] [id number] [address] [place] [address] [id number] Jul, Caries K02.9 [facility] [address] [facility] [id number] [address] [place] [phone] Jul, Type 2 diabetes mellitus wit h complication E11.8 ; Tobacco abuse Z72.0 and Bipolar disorder, unspecified F31.9 [facility] [address] [facility] [id number] [address] [place] [phone] Jun, [facility] [address] [id number] [address] [place] [address] [id number] Jun, Dental examination Z01.20 an d Oral health maintenance status requiring routine preventive dental care K08.9 [facility] [address] [facility] [id number] [address] [place] [phone] May, Bilateral impacted cerumen H 61.23 [facility] [address] [facility] [id number] [address] [place] [phone] Apr, Bipolar disorder, unspecifie d F31.9 ; Intermittent explosive disorder in adult F63.81 ; Type 2 diabetes mellitus with complication E11.8 ; Tobacco abuse Z72.0 and Colon cancer screening Z12.11 [facility] [address] [place] [phone] Apr, Onychomycosis B35.1 and Othe r diabetic neurological complication associated with type 2 diabetes mellitus E11.49 [facility] [address] [place] [id number] [address] [place] [phone] Apr, Intermittent explosive disor salvatore in adult F63.81 ; Bipolar disorder, unspecified F31.9 and Mild intellectual disability F70 [place] [address] [place] [id number] [address] [place] [phone] 03 Mar, 2018 Diabetes E11.9 [facility] [address] [place] [id number] [address] [place] [phone] Jan, Encounter for immunization Z 23 [facility] [address] [place] [phone] Jan, Tinea pedis of both feet B35 .3 ; Other diabetic neurological complication associated with type 2 diabetes mellitus E11.49 and Onychomycosis B35.1 [facility] [address] [place] [id number] [address] [place] [phone] Nov, Type 2 diabetes mellitus wit h complication E11.8 [place] [address] [place] [phone] Nov, [facility] [address] [place] [id number] [address] [place] [phone] Oct, Intermittent explosive disor salvatore in adult F63.81 ; Bipolar disorder, unspecified F31.9 and Mild intellectual disability F70 [facility] [address] [place] [id number] [address] [place] [phone] Oct, [facility] [address] [facility] [id number] [address] [place] [address] [id number] Oct, Dental examination Z01.20 [facility] [address] [facility] [id number] [address] [place] [phone] 06 Oct, 2017 Onychomycosis B35.1 and Othe r diabetic neurological complication associated with type 2 diabetes mellitus E11.49 [facility] [address] [place] [id number] [address] [place] [phone] Sep, Type 2 diabetes mellitus wit h complication E11.8 and Colon cancer screening Z12.11 [facility] [address] [place] [id number] [address] [place] [id number] 18 Sep, 2017 Type 2 diabetes mellitus wit h complication E11.8 ; Colon cancer screening Z12.11 and Neuropathy G62.9 [place] [address] [place] [id number] [address] [place] [phone] August, Diabetes E11.9 [facility] [address] [place] [id number] [address] [place] [address] [id number] Jul, Dental examination Z01.20 [place] [id number] [place] [id number] 27 May, 2017 Mild intellectual disability F70 [place] [address] [place] [id number] [address] [place] [phone] 07 May, 2017 Mild intellectual disability F70 ; High risk medication use Z79.899 ; Intermittent explosive disorder in adult F63.81 and Bipolar disorder, unspecified F31.9 [place] [address] [place] [phone] May, [place] [address] [place] [id number] [address] [place] [phone] May, [place] [address] [place] [id number] [address] [place] [phone] Apr, Type 2 diabetes mellitus wit h complication E11.8 ; Mild intellectual disability F70 ; Gastroesophageal reflux disease without esophagitis K21.9 ; Reactive airway disease, mild intermittent, uncomplicated J45.20 and Tobacco abuse Z72.0 [place] [address] [place] [phone] Apr, High risk medication use Z79 .899 ; Mild intellectual disability F70 ; Intermittent explosive disorder in adult F63.81 and Bipolar disorder, unspecified F31.9 [facility] [address] [id number] [address] [place] [address] [id number] Mar, Encounter for dental exam an d cleaning w/o abnormal findings Z01.20 [facility] [address] [id number] [address] [place] [address] [id number] Mar, Dental examination Z01.20 [facility] [address] [id number] [address] [place] [phone] 12 Jan, 2017 [facility] [address] [id number] [address] [place] [phone] Jan, [facility] [address] [id number] [address] [place] [phone] Jan, Mild intellectual disability F70 ; Bipolar disorder, unspecified F31.9 and Intermittent explosive disorder in adult F63.81 [facility] [address] [id number] [address] [place] [id number] 02 Jan, 2017 Diabetes E11.9 [facility] [address] [id number] [address] [place] [address] [id number] Dec, Encounter for dental examina tion and cleaning without abnormal findings Z01.20 [facility] [address] [id number] [address] [place] [phone] 12 Dec, 2016 Bipolar disorder, unspecifie d F31.9 ; Intermittent explosive disorder in adult F63.81 and Mild intellectual disability F70 [facility] [address] [id number] [address] [place] [phone] Nov, Diabetes E11.9 [facility] [address] [id number] [address] [place] [phone] Nov, [facility] [address] [id number] [address] [place] [id number] 14 Nov, 2016 Diabetes E11.9 and Colon can cer screening Z12.11 [facility] [address] [facility] [address] [id number] [id number] 21 Sep, 2016 Dental examination Z01.20 [facility] [address] [id number] [address] [place] [address] [id number] 21 Sep, 2016 Encounter for dental examina tion and cleaning without abnormal findings Z01.20 [facility] [address] [id number] [address] [place] [phone] 13 Sep, 2016 Bipolar disorder, unspecifie d F31.9 [facility] [address] [id number] [address] [place] [phone] 12 Sep, 2016 Bipolar disorder, unspecifie d F31.9 [facility] [address] [facility] [id number] [address] [place] [phone] Jul, [facility] [address] [facility] [id number] [address] [place] [phone] 13 Jul, 2016 Type 2 diabetes mellitus wit h complication E11.8 [facility] [address] [id number] [address] [place] [address] [id number] 15 Jun, 2016 Encounter for dental examina tion and cleaning without abnormal findings Z01.[address] [id number] [id number] 15 Jun, 2016 Dental examination Z01.20 [facility] [address] [facility] [id number] [address] [place] [phone] 18 Apr, 2016 Sports physical Z02.5 [facility] [address] [facility] [id number] [address] [place] [phone] 14 Mar, 2016 Bipolar disorder, in partial remission, most recent episode manic F31.73 and Intermittent explosive disorder in adult F63.81 [facility] [address] [id number] [address] [place] [phone] 08 Mar, 2016 [facility] [address] [facility] [id number] [address] [place] [phone] Mar, Diabetes E11.9 [facility] [address] [id number] [address] [place] [address] [id number] Feb, Encounter for dental examina tion and cleaning without abnormal findings Z01.20 [facility] [address] [id number] [address] [place] [phone] 22 Dec, 2015 Nocturnal hypoxemia G47.34 a nd Encounter for immunization Z23 [facility] [address] [id number] [address] [place] [phone] 15 Dec, 2015 [facility] [address] [facility] [id number] [address] [place] [phone] Dec, [facility] [address] [facility] [id number] [address] [place] [phone] Dec, Bipolar disorder, unspecifie d F31.9 [facility] [address] [facility] [id number] [place] [address] [id number] Oct, Encounter for dental examina tion and cleaning without abnormal findings Z01.20 [place] [address] [facility] [id number] [place] [address] [id number] Oct, Dental examination Z01.20 [facility] [address] [facility] [id number] [address] [place] [phone] Oct, Diabetes E11.9 [facility] [address] [facility] [id number] [address] [place] [phone] Oct, Diabetes E11.9 ; Reactive ai rway disease, mild intermittent, uncomplicated J45.20 and Tobacco abuse Z72.0 [facility] [address] [facility] [id number] [address] [place] [phone] Sep, Bipolar disorder, unspecifie d F31.9 and Depression F32.9 [facility] [address] [facility] [id number] [address] [place] [phone] Sep, [facility] [address] [facility] [id number] [address] [place] [phone] August, Tinea pedis of both feet B35 .3 and DM w/o complication type II, uncontrolled E11.65 [place] [address] [phone] Jul, [place] [address] [address] Jul, [place] [address] [address] Jul, Obstructive sleep apnea G47. 33 [place] [address] [address] Jun, Diabetes E11.9 [place] [address] [address] Jun, [place] [address] [phone] Jun, [place] [address] [id number] Jun, Bipolar disorder, unspecifie d F31.9 and Mental retardation F79 [place] [address] [address] Apr, [place] [address] [id number] Feb, Diabetes E11.9 ; Encounter f or immunization Z23 ; Cough R05 and Nicotine abuse Z72.0 [place] [address] [address] Jan, Bipolar disorder, unspecifie d F31.9 and Diabetes mellitus without mention of complication, type II or unspecified type, uncontrolled 250.02 [place] [address] [phone] Jan, [place] [address] [address] Dec, Reactive airway disease 493. 90 and Enuresis 788.30 [facility] [address] [id number] [address] [place] [id number] Dec, [facility] [address] [facility] [id number] [address] [place] [phone] Nov, [facility] [address] [facility] [id number] [address] [place] [phone] Nov, [facility] [address] [facility] [id number] [address] [place] [id number] Nov, Annual physical exam V70.0 ; Urinary incontinence 788.30 ; Diabetes 250.00 and Hypertension 401.9 [facility] [address] [facility] [id number] [address] [place] [phone] Oct, Diabetes mellitus without me ntion of complication, type II or unspecified type, uncontrolled 250.02 [facility] [address] [facility] [id number] [address] [place] [address] Oct, Diabetes mellitus without me ntion of complication, type II or unspecified type, uncontrolled 250.02 [facility] [address] [facility] [id number] [address] [place] [phone] Oct, Diabetes mellitus without me ntion of complication, type II or unspecified type, uncontrolled 250.02 [facility] [address] [place] [id number] [address] [place] [id number] Oct, [facility] [address] [facility] [id number] [address] [place] [id number] Oct, [facility] [address] [facility] [id number] [address] [place] [id number] Oct, Bipolar disorder, unspecifie d 296.80 [facility] [address] [id number] [address] [place] [address] [id number] Sep, Dental examination V72.2 [facility] [address] [facility] [id number] [address] [place] [phone] August, [facility] [address] [place] [id number] [address] [place] [address] [id number] August, Dental examination V72.2 [facility] [address] [id number] [address] [place] [phone] August, [facility] [address] [id number] [address] [place] [address], [place] [address] 14 Jul, 2014 [facility] [address] [id number] [address] [place] [phone] Jul, [facility] [address] [id number] [address] [place] [address], [place] [address] 17 Jun, 2014 [facility] [address] [id number] [address] [place] [address], [place] [address] Jun, [facility] [address] [id number] [address] [place] [phone] Jun, [facility] [address] [id number] [address] [place] [id number] Jun, [facility] [address] [id number] [address] [place] [id number] May, [facility] [address] [id number] [address] [place] [id number] 23 May, 2014 [facility] [address] [id number] [address] [place] [id number] 16 May, 2014 [facility] [address] [id number] [address] [place] [id number] 16 May, 2014 [facility] [address] [id number] [address] [place] [address] May, [facility] [address] [id number] [address] [place] [address] 16 May, 2014 [facility] [address] [id number] [address] [place] [id number] 16 May, 2014 [facility] [address] [id number] [address] [place] [address] May, 2014 [facility] [address] [id number] [address] [place] [address], [place] [address] May, 2014 [facility] [address] [id number] [address] [place] [address], [place] [address] May, 2014 [facility] [address] [id number] [address] [place] [address], [place] [address] May, 2014 [facility] [address] [id number] [address] [place] [address], [place] [address] May, 2014 [facility] [address] [id number] [address] [place] [address], [place] [address] May, 2014 [facility] [address] [id number] [address] [place] [address], [place] [address] May, 2014 [facility] [address] [id number] [address] [place] [address], [place] [address] May, 2014 [facility] [address] [id number] [address] [place] [address], [place] [address] Apr, [facility] [address] [id number] [address] [place] [address], [place] [address] Apr, [facility] [address] [id number] [address] [place] [address], [place] [address] Apr, [facility] [address] [id number] [address] [place] [address], [place] [address] Apr, [facility] [address] [id number] [address] [place] [address] Apr, [facility] [address] [id number] [address] [place] [address] Apr, [facility] [address] [id number] [address] [place] [address], [place] [address] Apr, [facility] [address] [id number] [address] [place] [address] Apr, [facility] [address] [id number] [address] [place] [address], [place] [address] Apr, [facility] [address] [id number] [address] [place] [address], [place] [address] Apr, [facility] [address] [id number] [address] [place] [address], [place] [address] Apr, [facility] [address] [id number] [address] [place] [address], [place] [address] Apr, [facility] [address] [id number] [address] [place] [address], [place] [address] Mar, [facility] [address] [id number] [address] [place] [address], [place] [address] Mar, [facility] [address] [id number] [address] [place] [address], [place] [address] Mar, [facility] [address] [id number] [address] [place] [address], [place] [address] Mar, [facility] [address] [id number] [address] [place] [address], [place] [address] Mar, [facility] [address] [id number] [address] [place] [address], [place] [address] Mar, [facility] [address] [id number] [address] [place] [address], [place] [address] Feb, [facility] [address] [id number] [address] [place] [address], [place] [address] Feb, [facility] [address] [id number] [address] [place] [address], [place] [address] Feb, [facility] [address] [id number] [address] [place] [address], [place] [address] 13 Feb, 2014 [facility] [address] [id number] [address] [place] [address], [place] [address] 14 Jan, 2014 [facility] [address] [id number] [address] [place] [address], [place] [address] 14 Jan, 2014 [facility] [address] [id number] [address] [place] [address], [place] [address] 14 Jan, 2014 [facility] [address] [id number] [address] [place] [address], [place] [address] Jan, [facility] [address] [id number] [address] [place] [address], [place] [address] Dec, [facility] [address] [id number] [address] [place] [address], [place] [address] Dec, [facility] [address] [id number] [address] [place] [address], [place] [address] 15 Dec, 2013 [facility] [address] [id number] [address] [place] [address], [place] [address] Dec, [facility] [address] [id number] [address] [place] [address], [place] [address] Nov, [facility] [address] [id number] [address] [place] [address], [place] [address] Nov, [facility] [address] [id number] [address] [place] [address], [place] [address] Nov, [facility] [address] [id number] [address] [place] [address], [place] [address] Nov, [facility] [address] [id number] [address] [place] [address], [place] [address] Nov, [facility] [address] [id number] [address] [place] [address], [place] [address] Nov, [facility] [address] [id number] [address] [place] [address], [place] [address] Nov, [facility] [address] [id number] [address] [place] [address], [place] [address] Oct, [facility] [address] [id number] [address] [place] [address], [place] [address] Oct, [facility] [address] [id number] [facility] [place] [address] Oct, [facility] [address] [id number] [address] [place] [address], [place] [address] Oct, [facility] [address] [id number] [address] [place] [address], [place] [address] Oct, [facility] [address] [id number] [address] [place] [address], [place] [address] Oct, [facility] [address] [id number] [address] [place] [address], [place] [address] Oct, [facility] [address] [id number] [address] [place] [address], [place] [address] Sep, [facility] [address] [id number] [address] [place] [address], [place] [address] Sep, [facility] [address] [id number] [address] [place] [address], [place] [address] Sep, [facility] [address] [id number] [address] [place] [address], [place] [address] Sep, [facility] [address] [id number] [address] [place] [address], [place] [address] Sep, [facility] [address] [id number] [address] [place] [address], [place] [address] Jul, [facility] [address] [id number] [address] [place] [address], [place] [address] Jul, [facility] [address] [id number] [address] [place] [address], [place] [address] Jul, [facility] [address] [id number] [address] [place] [address], [place] [address] Jul, [facility] [address] [id number] [address] [place] [address], [place] [address] Jul, [facility] [address] [id number] [address] [place] [address], [place] [address] Jul, [facility] [address] [id number] [facility] [place] [address] Jul, [facility] [address] [id number] [address] [place] [address], [place] [address] Jul, [facility] [address] [id number] [address] [place] [address], [place] [address] Jul, [facility] [address] [id number] [address] [place] [address], [place] [address] Jul, [facility] [address] [id number] [address] [place] [address], [place] [address] Jul, [facility] [address] [id number] [address] [place] [address], [place] [address] Jul, [facility] [address] [id number] [address] [place] [address], [place] [address] Jun, [facility] [address] [id number] [address] [place] [address], [place] [address] Jun, [facility] [address] [id number] [address] [place] [address], [place] [address] Jun, [facility] [address] [id number] [address] [place] [address], [place] [address] Jun, [facility] [address] [id number] [address] [place] [address], [place] [address] Jun, [facility] [address] [id number] [address] [place] [address], [place] [address] Jun, [facility] [address] [id number] [address] [place] [address], [place] [address] Jun, [facility] [address] [id number] [address] [place] [address], [place] [address] Jun, [facility] [address] [id number] [address] [place] [address], [place] [address] May, [facility] [address] [id number] [address] [place] [address] May, [facility] [address] [id number] [address] [place] [address], [place] [address] May, [facility] [address] [id number] [address] [place] [address], [place] [address] May, [facility] [address] [id number] [address] [place] [address], [place] [address] May, [facility] [address] [id number] [address] [place] [address], [place] [address] May, [facility] [address] [id number] [address] [place] [address], [place] [address] May, [facility] [address] [id number] [address] [place] [address], [place] [address] May, [facility] [address] [id number] [address] [place] [address], [place] [address] Apr, [facility] [address] [id number] [address] [place] [address], [place] [address] Apr, [facility] [address] [id number] [address] [place] [address], [place] [address] Apr, [facility] [address] [id number] [address] [place] [address], [place] [address] Apr, [facility] [address] [id number] [address] [place] [address], [place] [address] Mar, [facility] [address] [id number] [address] [place] [address], [place] [address] Mar, [facility] [address] [id number] [address] [place] [address], [place] [address] Mar, [facility] [address] [id number] [address] [place] [address], [place] [address] Feb, [facility] [address] [id number] [address] [place] [address], [place] [address] Feb, [facility] [address] [id number] [address] [place] [address], [place] [address] Feb, [facility] [address] [id number] [address] [place] [address], [place] [address] Feb, [facility] [address] [id number] [address] [place] [address], [place] [address] Feb, [facility] [address] [id number] [address] [place] [address], [place] [address] Feb, [facility] [address] [id number] [address] [place] [address], [place] [address] Jan, [facility] [address] [id number] [address] [place] [address], [place] [address] Jan, [facility] [address] [id number] [address] [place] [address], [place] [address] Jan, [facility] [address] [id number] [address] [place] [address] Jan, [facility] [address] [id number] [address] [place] [address], [place] [address] Jan, [facility] [address] [id number] [address] [place] [address] Jan, [facility] [address] [id number] [address] [place] [address] Jan, [facility] [address] [id number] [address] [place] [address] 25 Dec, 2012 [facility] [address] [id number] [address] [place] [address], [place] [address] 16 Sep2012 [facility] [address] [id number] [address] [place] [address] 10 Sep2012 [facility] [address] [id number] [address] [place] [address] 05 Sep2012 [facility] [address] [id number] [address] [place] [address] Nov, [facility] [address] [id number] [address] [place] [address], [place] [address] Nov, [facility] [address] [id number] [address] [place] [address], [place] [address] Nov, [facility] [address] [id number] [address] [place] [address], [place] [address] Nov, [facility] [address] [id number] [address] [place] [address], [place] [address] Nov, [facility] [address] [id number] [address] [place] [address], [place] [address] Nov, [facility] [address] [id number] [address] [place] [address], [place] [address] Nov, [facility] [address] [id number] [address] [place] [address], [place] [address] Oct, [facility] [address] [id number] [address] [place] [address], [place] [address] Oct, [facility] [address] [id number] [address] [place] [address], [place] [address] Oct, [facility] [address] [id number] [address] [place] [address], [place] [address] Oct, [facility] [address] [id number] [address] [place] [address], [place] [address] Oct, [facility] [address] [id number] [address] [place] [address], [place] [address] Oct, [facility] [address] [id number] [address] [place] [address], [place] [address] Oct, [facility] [address] [id number] [address] [place] [address], [place] [address] Oct, [facility] [address] [id number] [address] [place] [address], [place] [address] Sep, [facility] [address] [id number] [place] [id number] August, [facility] [address] [id number] [address] [place] [address], [place] [address] August, [facility] [address] [id number] [address] [place] [address], [place] [address] Jul, [facility] [address] [id number] [address] [place] [address], [place] [address] Jul, [facility] [address] [id number] [address] [place] [address], [place] [address] Jul, [facility] [address] [id number] [address] [place] [address], [place] [address] Jul, [facility] [address] [id number] [address] [place] [address], [place] [address] Jul, [facility] [address] [id number] [address] [place] [address], [place] [address] 17 Jul, 2012 [facility] [address] [id number] [address] [place] [address], [place] [address] 16 Jul, 2012 [facility] [address] [id number] [address] [place] [address], [place] [address] Jun, [facility] [address] [id number] [address] [place] [address], [place] [address] Jun, [facility] [address] [id number] [address] [place] [address], [place] [address] Jun, [facility] [address] [id number] [address] [place] [address], [place] [address] Jun, [facility] [address] [id number] [address] [place] [address], [place] [address] Jun, [facility] [address] [id number] [address] [place] [address], [place] [address] May, [facility] [address] [id number] [address] [address] 18 May, 2012 [facility] [address] [id number] [address] [place] [address], [place] [address] 04 May, 2012 [facility] [address] [id number] [address] [place] [address], [place] [address] 15 Apr, 2012 [facility] [address] [id number] [address] [place] [address], [place] [address] 14 Apr, 2012 [facility] [address] [id number] [address] [place] [address], [place] [address] 07 Apr, 2012 [facility] [address] [id number] [address] [place] [address], [place] [address] Mar, [facility] [address] [id number] [address] [place] [address], [place] [address] 31 Mar, 2012 [facility] [address] [id number] [address] [place] [address], [place] [address] Mar, [facility] [address] [id number] [address] [place] [address], [place] [address] Mar, [facility] [address] [id number] [address] [place] [address], [place] [address] Mar, [facility] [address] [id number] [address] [place] [address], [place] [address] Mar, [facility] [address] [id number] [address] [place] [address], [place] [address] Feb, [facility] [address] [id number] [address] [place] [id number] Feb, [facility] [address] [id number] [address] [place] [address], [place] [address] Jan, [facility] [address] [id number] [address] [place] [address], [place] [address] Jan, [facility] [address] [id number] [address] [place] [address], [place] [address] 25 Dec, 2011 [facility] [address] [id number] [address] [place] [address], [place] [address] Nov, [facility] [address] [id number] [address] [place] [address], [place] [address] Nov, [facility] [address] [id number] [address] [place] [address], [place] [address] Nov, [facility] [address] [id number] [address] [place] [address], [place] [address] Nov, [facility] [address] [id number] [address] [place] [address], [place] [address] Oct, [facility] [address] [id number] [address] [place] [address], [place] [address] Oct, [facility] [address] [id number] [address] [place] [address], [place] [address] Oct, [facility] [address] [id number] [address] [place] [address], [place] [address] Sep, [facility] [address] [id number] [address] [place] [address], [place] [address] Sep, [facility] [address] [id number] [address] [place] [address], [place] [address] Sep, [facility] [address] [id number] [address] [place] [address], [place] [address] August, [facility] [address] [id number] [address] [place] [address], [place] [address] August, [facility] [address] [id number] [address] [place] [address], [place] [address] Jul, [facility] [address] [id number] [address] [place] [address], [place] [address] 24 Jul, 2011 [facility] [address] [id number] [address] [place] [address], [place] [address] Jul, [facility] [address] [id number] [address] [place] [address], [place] [address] Jul, [facility] [address] [id number] [address] [place] [address], [place] [address] Jun, [facility] [address] [id number] [address] [place] [address], [place] [address] May, [facility] [address] [id number] [address] [place] [address], [place] [address] Apr, [facility] [address] [id number] [address] [place] [address], [place] [address] Apr, [facility] [address] [id number] [address] [place] [address], [place] [address] Apr, [facility] [address] [id number] [address] [place] [address], [place] [address] Apr, [facility] [address] [id number] [address] [place] [address], [place] [address] Apr, [facility] [address] [id number] [address] [place] [address], [place] [address] Apr, [facility] [address] [id number] [address] [place] [address], [place] [address] Mar, [facility] [address] [id number] [address] [place] [address], [place] [address] Mar, [facility] [address] [id number] [address] [place] [address], [place] [address] Feb, [facility] [address] [id number] [address] [place] [address] Feb, [facility] [address] [id number] [address] [place] [address], [place] [address] Feb, [facility] [address] [id number] [address] [place] [address], [place] [address] 09 Feb, 2011 [facility] [address] [id number] [address] [place] [address], [place] [address] Jan, [facility] [address] [id number] [address] [place] [address], [place] [address] 18 Jan, 2011 [facility] [address] [id number] [address] [place] [address], [place] [address] 18 Jan, 2011 [facility] [address] [id number] [address] [place] [address], [place] [address] 18 Jan, 2011 [facility] [address] [id number] [address] [place] [address], [place] [address] 17 Nov, 2010 [facility] [address] [id number] [address] [place] [address], [place] [address] 03 Mar, 2010 [facility] [address] [id number] [address] [place] [address], [place] [address] Mar, [facility] [address] [id number] [address] [place] [address], [place] [address] 30 Feb, 2010 [facility] [address] [id number] [address] [place] [address], [place] [address] 15 Feb, 2010 [facility] [address] [id number] [address] [place] [address], [place] [address] Jan, [facility] [address] [id number] [address] [place] [address], [place] [address] Jan, [facility] [address] [id number] [address] [place] [address], [place] [address] Sep, [facility] [address] [id number] [address] [place] [address], [place] [address] 16 May, 2009 [facility] [address] [id number] [address] [place] [address], [place] [address] Apr, [facility] [address] [id number] [address] [place] [address], [place] [address] Mar, [facility] [address] [id number] [address] [place] [address], [place] [address] 15 Feb, 2009 [facility] [address] [id number] [address] [place] [address] Feb, [facility] [address] [facility] [id number] [address] [place] [address] [id number] Feb, [facility] [address] [facility] [id number] [address] [place] [phone] Jan, [facility] [address] [facility] [id number] [address] [place] [phone] Jan, [facility] [address] [facility] [id number] [address] [place] [phone] Jan, [facility] [address] [facility] [id number] [address] [place] [phone] Jan, [facility] [address] [facility] [id number] [address] [place] [phone] August, IMMUNIZATIONS Vaccine Route Administration Date Status influenza IIV3 (history) Unknown May 12, 2014 Adminis tered SOCIAL HISTORY Never Assessed REASON FOR VISIT [...] age 6 Hospitalization History surgery Hospitalization History [facility] [place] [facility] few times for [facility]
--- OUTSIDE RECORDS SUMMARY | 2019-09-29 10:32 | XMS REPORT ---
Author Author Cameron Hirsch Organization [facility] Address Unknown Care Team Providers Care Process Specialist Name Role Phone VIRIDIANA Hirsch Unavailable PROBLEMS Type Condition ICD9-CM Code UQK02-LX Code Onset Dates Condition S tatus SNOMED Code Problem Open-angle glaucoma of both eyes, unspecified glaucoma stage, unspecified open-angle glaucoma type H40.10X0 Acti ve 00566055 Problem Adjustment disorder, unspecified type F43.20 Active 02066598 Problem Obstructive sleep apnea G47.33 Active 04235919 Problem Hypertensive retinopathy of both eyes H35.033 Active 3627013 Problem Type 2 diabetes mellitus with complication E11.8 Active 05553574 Problem Essential hypertension I10 Active 31662010 Problem Depression F32.9 Active 88445034 Problem Intermittent explosive disorder F63.81 Active 68097450 Problem Intermittent explosive disorder in adult F63.81 Active 09300073 Problem Bipolar disorder, unspecified F31.9 Active 32861733 Problem Mild intellectual disability F70 A ctive 32599992 Problem Other specified urinary incontinence N39.498 Active 216695949 Problem Bipolar disorder, in partial remission, most rec ent episode manic F31.73 Active 00449847 Problem 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 Active 28728796 Problem Type 2 diabetes mellitus wit h diabetic neuropathy, 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 Active 777752 118345571 Problem Diabetes E11.9 Active 84949246 Problem Reactive airway disease, unspecified asthma justin rity, uncomplicated J45.909 Active 947445354522 Problem Reactive airway disease, mild intermittent, uncomplicated J45.20 Active 744766391 Problem Gastroesophageal reflux disease without esophagitis K21.9 Active 319864206 Problem Other diabetic neurological complication associated with type 2 diabetes mellitus E11.49 Active 893398345 Problem Neuropathy G62.9 Active [id number] ALLERGIES No Information ENCOUNTERS Encounter Location Date Diagnosis [facility] [address] [facility] [id number] [address] [place] [id number] Oct, [facility] [address] [facility] [id number] [address] [place] [address] August, [facility] [address] [facility] [id number] [address] [place] [address] Jul, Type 2 diabetes mellitus wit h diabetic neuropathy, 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 and Colon cancer screening Z12.11 [facility] [address] [facility] [id number] [address] [place] [address] 10 Jul, 2019 Type 2 diabetes mellitus wit h diabetic neuropathy, unspecified whether assisted insulin use E11.40 and Tinea pedis, unspecified laterality B35.3 [facility] [address] [facility] [id number] [address] [place] [address] Jun, [facility] [address] [facility] [id number] [address] [place] [address] Jun, [facility] [address] [facility] [id number] [address] [place] [address] 04 Jun, 2019 Dysuria R30.0 [facility] [address] [facility] [id number] [address] [place] [address] Jun, [facility] [address] [facility] [id number] [address] [place] [address] May, Influenza J11.1 [facility] [address] [facility] [id number] [address] [place] [id number] 13 May, 2019 Intermittent explosive disor salvatore in adult F63.81 [facility] [address] [facility] [id number] [address] [place] [id number] 12 May, 2019 [facility] [address] [facility] [id number] [address] [place] [address] Apr, Intermittent explosive disor salvatore in adult F63.81 ; Bipolar disorder, unspecified F31.9 and Mild intellectual disability F70 [facility] [address] [id number] [address] Apr, Oral health maintenance stat us requiring routine preventive dental care K08.9 [facility] [address] [id number] [address] [place] [id number] 20 Apr, 2019 Type 2 diabetes mellitus wit h complication E11.8 ; History of test for hearing Z92.89 ; Colon cancer screening Z12.11 ; Other specified urinary incontinence N39.498 and Impacted cerumen, right ear H61.21 [facility] [address] [id number] [address] [place] [address] 10 Apr, 2019 Onychomycosis B35.1 ; Other diabetic neurological complication associated with type 2 diabetes mellitus E11.49 and Tinea pedis of both feet B35.3 [facility] [address] [facility] [id number] [address] [place] [phone] Feb, [facility] [address] [id number] [address] [place] [phone] Jan, [facility] [address] [facility] [id number] [address] [place] [address] Jan, [facility] [address] [id number] [address] [place] [phone] Jan, [facility] [address] [facility] [id number] [address] [place] [address] Jan, [facility] [address] [id number] [address] [place] [phone] Jan, [facility] [address] [id number] [address] [place] [address] Jan, [facility] [address] [id number] [address] [place] [address] Jan, [facility] [address] [facility] [id number] [address] [place] [address] Jan, Anemia D64.9 [facility] [id number] [place] [address] Jan, Dental examination Z01.20 an d Oral health maintenance status requiring routine preventive dental care K08.9 [place] [address] [place] [id number] [address] [place] [address] Jan, Onychomycosis B35.1 and Othe r diabetic neurological complication associated with type 2 diabetes mellitus E11.49 [place] [id number] [place] [address] Jan, Anemia D64.9 [place] [address] [place] [id number] [address] [place] [address] Jan, [place] [address] [address] Dec, Urinary tract infection with out hematuria, site unspecified N39.0 [place] [address] [place] [id number] [address] [place] [address] Dec, Type 2 diabetes mellitus wit h complication E11.8 ; Urinary tract infection without hematuria, site unspecified N39.0 ; Impacted cerumen of both ears H61.23 ; Encounter for immunization Z23 and Hyponatremia E87.1 [place] [address] [place] [id number] [address] [place] [address] Dec, Intermittent explosive disor salvatore in adult F63.81 ; Dysuria R30.0 ; Type 2 diabetes mellitus with complication E11.8 ; Bipolar disorder, unspecified F31.9 and Mild intellectual disability F70 [place] [address] [place] [id number] [address] [place] [address] Dec, Dysuria R30.0 [place] [address] [place] [id number] [address] [place] [address] Dec, Intermittent explosive disor salvatore in adult F63.81 ; Bipolar disorder, unspecified F31.9 and Mild intellectual disability F70 [place] [address] [place] [id number] [address] [place] [address] Nov, [place] [address] [facility] [id number] [address] [place] [address] Oct, [facility] [address] [place] [id number] [place] [id number] Oct, Oral health maintenance stat us requiring routine preventive dental care K08.9 [facility] [address] [facility] [id number] [address] [place] [address] August, Intermittent explosive disor salvatore in adult F63.81 ; Bipolar disorder, unspecified F31.9 and Mild intellectual disability F70 [facility] [address] [facility] [id number] [address] [place] [address] [phone] August, Dental caries K02.9 [facility] [address] [facility] [id number] [address] [place] [address] Jul, Onychomycosis B35.1 ; Other diabetic neurological complication associated with type 2 diabetes mellitus E11.49 and Tinea pedis of both feet B35.3 [facility] [address] [facility] [id number] [address] [place] [address] [id number] Jul, Caries K02.9 [facility] [address] [facility] [id number] [address] [place] [address] Jul, Type 2 diabetes mellitus wit h complication E11.8 ; Tobacco abuse Z72.0 and Bipolar disorder, unspecified F31.9 [facility] [address] [facility] [id number] [address] [place] [address] Jun, [facility] [address] [facility] [id number] [address] [place] [phone] Jun, Dental examination Z01.20 an d Oral health maintenance status requiring routine preventive dental care K08.9 [facility] [address] [facility] [id number] [address] [place] [address] May, Bilateral impacted cerumen H 61.23 [facility] [address] [facility] [id number] [address] [place] [address] Apr, Bipolar disorder, unspecifie d F31.9 ; Intermittent explosive disorder in adult F63.81 ; Type 2 diabetes mellitus with complication E11.8 ; Tobacco abuse Z72.0 and Colon cancer screening Z12.11 [facility] [address] [place] [id number] [address] [place] [address] Apr, Onychomycosis B35.1 and Othe r diabetic neurological complication associated with type 2 diabetes mellitus E11.49 [place] [address] [address] Apr, Intermittent explosive disor salvatore in adult F63.81 ; Bipolar disorder, unspecified F31.9 and Mild intellectual disability F70 [place] [address] [address] 03 Mar, 2018 Diabetes E11.9 [facility] [address] [address] Jan, Encounter for immunization Z 23 [place] [address] [address] Jan, Tinea pedis of both feet B35 .3 ; Other diabetic neurological complication associated with type 2 diabetes mellitus E11.49 and Onychomycosis B35.1 [place] [address] [place] [id number] [address] [place] [address] Nov, Type 2 diabetes mellitus wit h complication E11.8 [place] [address] [place] [id number] [address] [place] [address] Nov, [facility] [address] [place] [id number] [address] [place] [address] Oct, Intermittent explosive disor salvatore in adult F63.81 ; Bipolar disorder, unspecified F31.9 and Mild intellectual disability F70 [facility] [address] [place] [id number] [address] [place] [address] Oct, [facility] [address] [place] [id number] [address] [place] [address] [id number] Oct, Dental examination Z01.20 [place] [address] [place] [address] Oct, Onychomycosis B35.1 and Othe r diabetic neurological complication associated with type 2 diabetes mellitus E11.49 [place] [address] [place] [address] Sep, Type 2 diabetes mellitus wit h complication E11.8 and Colon cancer screening Z12.11 [place] [address] [place] [id number] [address] [place] [address] Sep, Type 2 diabetes mellitus wit h complication E11.8 ; Colon cancer screening Z12.11 and Neuropathy G62.9 [place] [address] [place] [id number] [address] [place] [address] August, Diabetes E11.9 [facility] [address] [place] [id number] [address] [place] [address] [phone] Jul, Dental examination Z01.20 [place] [address] [place] [id number] [address] [place] [address] May, Mild intellectual disability F70 [place] [address] [address] 07 May, 2017 Mild intellectual disability F70 ; High risk medication use Z79.899 ; Intermittent explosive disorder in adult F63.81 and Bipolar disorder, unspecified F31.9 [place] [address] [place] [id number] [address] [place] [phone] May, [place] [address] [place] [id number] [address] [place] [phone] May, [place] [address] [place] [id number] [address] [place] [address] Apr, Type 2 diabetes mellitus wit h complication E11.8 ; Mild intellectual disability F70 ; Gastroesophageal reflux disease without esophagitis K21.9 ; Reactive airway disease, mild intermittent, uncomplicated J45.20 and Tobacco abuse Z72.0 [place] [address] [place] [id number] [address] [place] [address] Apr, High risk medication use Z79 .899 ; Mild intellectual disability F70 ; Intermittent explosive disorder in adult F63.81 and Bipolar disorder, unspecified F31.9 [facility] [address] [id number] [address] [place] [address] [phone] Mar, Encounter for dental exam an d cleaning w/o abnormal findings Z01.20 [facility] [address] [id number] [address] [place] [address] [phone] Mar, Dental examination Z01.20 [facility] [address] [id number] [address] [place] [address] 12 Jan, 2017 [facility] [address] [id number] [address] [place] [phone] Jan, [facility] [address] [id number] [address] [place] [phone] Jan, Mild intellectual disability F70 ; Bipolar disorder, unspecified F31.9 and Intermittent explosive disorder in adult F63.81 [facility] [address] [id number] [address] [place] [address] Jan, Diabetes E11.9 [facility] [address] [id number] [address] [place] [address] [id number] Dec, Encounter for dental examina tion and cleaning without abnormal findings Z01.20 [facility] [address] [id number] [address] [place] [id number] Dec, Bipolar disorder, unspecifie d F31.9 ; Intermittent explosive disorder in adult F63.81 and Mild intellectual disability F70 [facility] [address] [id number] [address] [place] [address] Nov, Diabetes E11.9 [facility] [address] [id number] [address] [place] [address] Nov, [facility] [address] [id number] [address] [place] [phone] Nov, Diabetes E11.9 and Colon can cer screening Z12.[address] [id number] [id number] 21 Sep, 2016 Dental examination Z01.20 [facility] [address] [id number] [address] [place] [address] [id number] 21 Sep, 2016 Encounter for dental examina tion and cleaning without abnormal findings Z01.20 [facility] [address] [id number] [address] [place] [id number] 13 Sep, 2016 Bipolar disorder, unspecifie d F31.9 [facility] [address] [id number] [address] [place] [id number] 12 Sep, 2016 Bipolar disorder, unspecifie d F31.9 [facility] [address] [facility] [id number] [address] [place] [phone] Jul, [facility] [address] [facility] [id number] [address] [place] [address] Jul, Type 2 diabetes mellitus wit h complication E11.8 [facility] [address] [id number] [address] [place] [address] [id number] 15 Jun, 2016 Encounter for dental examina tion and cleaning without abnormal findings Z01.[address] [id number] [id number] 15 Jun, 2016 Dental examination Z01.20 [facility] [address] [facility] [id number] [address] [place] [phone] 18 Apr, 2016 Sports physical Z02.5 [facility] [address] [facility] [id number] [address] [place] [id number] 14 Mar, 2016 Bipolar disorder, in partial remission, most recent episode manic F31.73 and Intermittent explosive disorder in adult F63.81 [facility] [address] [facility] [id number] [address] [place] [phone] 08 Mar, 2016 [facility] [address] [facility] [id number] [address] [place] [address] Mar, Diabetes E11.9 [facility] [address] [id number] [address] [place] [address] [id number] Feb, Encounter for dental examina tion and cleaning without abnormal findings Z01.20 [facility] [address] [id number] [address] [place] [phone] 22 Dec, 2015 Nocturnal hypoxemia G47.34 a nd Encounter for immunization Z23 [facility] [address] [facility] [id number] [address] [place] [phone] 15 Dec, 2015 [facility] [address] [facility] [id number] [address] [place] [phone] Dec, [facility] [address] [facility] [id number] [address] [place] [address] Dec, Bipolar disorder, unspecifie d F31.9 [facility] [address] [id number] [address] [place] [address] [phone] Oct, Encounter for dental examina tion and cleaning without abnormal findings Z01.20 [facility] [address] [facility] [id number] [place] [address] [id number] Oct, Dental examination Z01.20 [facility] [address] [facility] [id number] [address] [place] [address] Oct, Diabetes E11.9 [facility] [address] [facility] [id number] [address] [place] [phone] Oct, Diabetes E11.9 ; Reactive ai rway disease, mild intermittent, uncomplicated J45.20 and Tobacco abuse Z72.0 [facility] [address] [facility] [id number] [address] [place] [phone] Sep, Bipolar disorder, unspecifie d F31.9 and Depression F32.9 [facility] [address] [facility] [id number] [address] [place] [phone] Sep, [facility] [address] [facility] [id number] [address] [place] [address] August, Tinea pedis of both feet B35 .3 and DM w/o complication type II, uncontrolled E11.65 [place] [address] [address] Jul, [place] [address] [address] Jul, [place] [address] [address] Jul, Obstructive sleep apnea G47. 33 [place] [address] [address] Jun, Diabetes E11.9 [place] [address] [address] Jun, [place] [address] [address] Jun, [place] [address] [address] Jun, Bipolar disorder, unspecifie d F31.9 and Mental retardation F79 [place] [address] [address] Apr, [place] [address] [address] Feb, Diabetes E11.9 ; Encounter f or immunization Z23 ; Cough R05 and Nicotine abuse Z72.0 [place] [address] [address] Jan, Bipolar disorder, unspecifie d F31.9 and Diabetes mellitus without mention of complication, type II or unspecified type, uncontrolled 250.02 [place] [address] [address] Jan, [place] [address] [address] Dec, Reactive airway disease 493. 90 and Enuresis 788.30 [place] [address] [id number] [address] [place] [address] Dec, [facility] [address] [facility] [id number] [address] [place] [address] Nov, [facility] [address] [facility] [id number] [address] [place] [address] Nov, [facility] [address] [facility] [id number] [address] [place] [address] Nov, Annual physical exam V70.0 ; Urinary incontinence 788.30 ; Diabetes 250.00 and Hypertension 401.9 [facility] [address] [id number] [address] [place] [address] Oct, Diabetes mellitus without me ntion of complication, type II or unspecified type, uncontrolled 250.02 [facility] [address] [facility] [id number] [address] [place] [address] Oct, Diabetes mellitus without me ntion of complication, type II or unspecified type, uncontrolled 250.02 [facility] [address] [facility] [id number] [address] [place] [address] Oct, Diabetes mellitus without me ntion of complication, type II or unspecified type, uncontrolled 250.02 [facility] [address] [place] [id number] [address] [place] [phone] Oct, [facility] [address] [facility] [id number] [address] [place] [id number] Oct, [facility] [address] [facility] [id number] [address] [place] [address] Oct, Bipolar disorder, unspecifie d 296.80 [facility] [address] [id number] [place] [address] [id number] Sep, Dental examination V72.2 [facility] [address] [facility] [id number] [address] [place] [phone] August, [facility] [address] [id number] [place] [address] [id number] August, Dental examination V72.2 [facility] [address] [id number] [address] [place] [id number] August, [facility] [address] [id number] [address] [place] [phone] Jul, [facility] [address] [id number] [address] [place] [address] Jul, [facility] [address] [id number] [address] [place] [phone] 17 Jun, 2014 [facility] [address] [id number] [address] [place] [phone] Jun, [facility] [address] [id number] [address] [place] [phone] Jun, [facility] [address] [id number] [address] [place] [address] Jun, [facility] [address] [id number] [address] [place] [id number] May, [facility] [address] [id number] [address] [place] [id number] May, 2014 [facility] [address] [id number] [address] [place] [id number] 16 May, 2014 [facility] [address] [id number] [address] [place] [id number] 16 May, 2014 [facility] [address] [id number] [address] [place] [id number] 16 May, 2014 [facility] [address] [id number] [address] [place] [id number] May, 2014 [facility] [address] [id number] [address] [place] [id number] 16 May, 2014 [facility] [address] [id number] [address] [place] [id number] May, 2014 [facility] [address] [id number] [address] [place] [address], [place] [address] May, [facility] [address] [id number] [address] [place] [address], [place] [address] May, 2014 [facility] [address] [id number] [address] [place] [address], [place] [address] May, 2014 [facility] [address] [id number] [address] [place] [address], [place] [address] May, 2014 [facility] [address] [id number] [address] [place] [address], [place] [address] May, [facility] [address] [id number] [address] [place] [address], [place] [address] May, [facility] [address] [id number] [address] [place] [address], [place] [address] May, [facility] [address] [id number] [address] [place] [address], [place] [address] Apr, [facility] [address] [id number] [address] [place] [address], [place] [address] Apr, [facility] [address] [id number] [address] [place] [address], [place] [address] Apr, [facility] [address] [id number] [address] [place] [address], [place] [address] Apr, [facility] [address] [id number] [address] [place] [address], [place] [address] Apr, [facility] [address] [id number] [address] [place] [address], [place] [address] Apr, [facility] [address] [id number] [address] [place] [address], [place] [address] Apr, [facility] [address] [id number] [address] [place] [address], [place] [address] Apr, [facility] [address] [id number] [address] [place] [address], [place] [address] Apr, [facility] [address] [id number] [address] [place] [address], [place] [address] Apr, [facility] [address] [id number] [address] [place] [address], [place] [address] Apr, [facility] [address] [id number] [address] [place] [address], [place] [address] Apr, [facility] [address] [id number] [address] [place] [address], [place] [address] Mar, [facility] [address] [id number] [address] [place] [address], [place] [address] Mar, [facility] [address] [id number] [address] [place] [address], [place] [address] Mar, [facility] [address] [id number] [address] [place] [address], [place] [address] Mar, [facility] [address] [id number] [address] [place] [address], [place] [address] Mar, [facility] [address] [id number] [address] [place] [address], [place] [address] Mar, [facility] [address] [id number] [address] [place] [address], [place] [address] Feb, [facility] [address] [id number] [address] [place] [address], [place] [address] Feb, [facility] [address] [id number] [address] [place] [address], [place] [address] Feb, [facility] [address] [id number] [address] [place] [address], [place] [address] 13 Feb, 2014 [facility] [address] [id number] [address] [place] [address], [place] [address] 14 Jan, 2014 [facility] [address] [id number] [address] [place] [address], [place] [address] 14 Jan, 2014 [facility] [address] [id number] [address] [place] [address], [place] [address] 14 Jan, 2014 [facility] [address] [id number] [address] [place] [address], [place] [address] Jan, [facility] [address] [id number] [address] [place] [address], [place] [address] Dec, [facility] [address] [id number] [address] [place] [address], [place] [address] Dec, [facility] [address] [id number] [address] [place] [address], [place] [address] Dec, [facility] [address] [id number] [address] [place] [address], [place] [address] Dec, [facility] [address] [id number] [address] [place] [address], [place] [address] Nov, [facility] [address] [id number] [address] [place] [address], [place] [address] Nov, [facility] [address] [id number] [address] [place] [address], [place] [address] Nov, [facility] [address] [id number] [address] [place] [address], [place] [address] Nov, [facility] [address] [id number] [address] [place] [address], [place] [address] Nov, [facility] [address] [id number] [address] [place] [address], [place] [address] Nov, [facility] [address] [id number] [address] [place] [address], [place] [address] Nov, [facility] [address] [id number] [address] [place] [address], [place] [address] Oct, [facility] [address] [id number] [address] [place] [address], [place] [address] Oct, [facility] [address] [id number] [address] [place] [address], [place] [address] Oct, [facility] [address] [id number] [address] [place] [address], [place] [address] Oct, [facility] [address] [id number] [address] [place] [address], [place] [address] Oct, [facility] [address] [id number] [address] [place] [address], [place] [address] Oct, [facility] [address] [id number] [address] [place] [address], [place] [address] Oct, [facility] [address] [id number] [address] [place] [address], [place] [address] Sep, [facility] [address] [id number] [address] [place] [address], [place] [address] Sep, [facility] [address] [id number] [address] [place] [address], [place] [address] Sep, [facility] [address] [id number] [address] [place] [address], [place] [address] Sep, [facility] [address] [id number] [address] [place] [address], [place] [address] Sep, [facility] [address] [id number] [address] [place] [address], [place] [address] Jul, [facility] [address] [id number] [address] [place] [address], [place] [address] Jul, [facility] [address] [id number] [address] [place] [address], [place] [address] Jul, [facility] [address] [id number] [address] [place] [address], [place] [address] Jul, [facility] [address] [id number] [address] [place] [address], [place] [address] Jul, [facility] [address] [id number] [address] [place] [address], [place] [address] Jul, [facility] [address] [id number] [facility] [place] [address] Jul, [facility] [address] [id number] [facility] [place] [address] Jul, [facility] [address] [id number] [facility] [place] [address] Jul, [facility] [address] [id number] [facility] [place] [address] Jul, [facility] [address] [id number] [facility] [place] [address] Jul, [facility] [address] [id number] [address] [place] [address], [place] [address] Jul, [facility] [address] [id number] [address] [place] [address], [place] [address] Jun, [facility] [address] [id number] [address] [place] [address], [place] [address] Jun, [facility] [address] [id number] [address] [place] [address], [place] [address] Jun, [facility] [address] [id number] [address] [place] [address], [place] [address] Jun, [facility] [address] [id number] [address] [place] [address], [place] [address] Jun, [facility] [address] [id number] [address] [place] [address], [place] [address] Jun, [facility] [address] [id number] [address] [place] [address], [place] [address] Jun, [facility] [address] [id number] [address] [place] [address], [place] [address] Jun, [facility] [address] [id number] [address] [place] [address], [place] [address] May, [facility] [address] [id number] [address] [place] [address], [place] [address] May, [facility] [address] [id number] [address] [place] [address], [place] [address] May, [facility] [address] [id number] [address] [place] [address], [place] [address] May, [facility] [address] [id number] [address] [place] [address], [place] [address] May, [facility] [address] [id number] [address] [place] [address], [place] [address] May, [facility] [address] [id number] [address] [place] [address], [place] [address] May, [facility] [address] [id number] [address] [place] [address], [place] [address] May, [facility] [address] [id number] [address] [place] [address], [place] [address] Apr, [facility] [address] [id number] [address] [place] [address], [place] [address] Apr, [facility] [address] [id number] [address] [place] [address], [place] [address] Apr, [facility] [address] [id number] [address] [place] [address], [place] [address] Apr, [facility] [address] [id number] [address] [place] [address], [place] [address] Mar, [facility] [address] [id number] [address] [place] [address], [place] [address] Mar, [facility] [address] [id number] [address] [place] [address], [place] [address] Mar, [facility] [address] [id number] [address] [place] [address], [place] [address] Feb, [facility] [address] [id number] [address] [place] [address], [place] [address] Feb, [facility] [address] [id number] [address] [place] [address], [place] [address] Feb, [facility] [address] [id number] [address] [place] [address], [place] [address] Feb, [facility] [address] [id number] [address] [place] [address], [place] [address] Feb, [facility] [address] [id number] [address] [place] [address], [place] [address] Feb, [facility] [address] [id number] [address] [place] [address], [place] [address] Jan, [facility] [address] [id number] [address] [place] [address], [place] [address] Jan, [facility] [address] [id number] [address] [place] [address], [place] [address] Jan, [facility] [address] [id number] [address] [place] [address], [place] [address] Jan, [facility] [address] [id number] [address] [place] [address], [place] [address] Jan, [facility] [address] [id number] [address] [place] [address], [place] [address] Jan, [facility] [address] [id number] [address] [place] [address], [place] [address] Jan, [facility] [address] [id number] [address] [place] [address], [place] [address] 25 Dec, 2012 [facility] [address] [id number] [address] [place] [address], [place] [address] 16 Dec, 2012 [facility] [address] [id number] [address] [place] [address], [place] [address] 10 Dec, 2012 [facility] [address] [id number] [address] [place] [address], [place] [address] 05 Dec, 2012 [facility] [address] [id number] [address] [place] [address], [place] [address] Nov, [facility] [address] [id number] [address] [place] [address], [place] [address] Nov, [facility] [address] [id number] [address] [place] [address], [place] [address] Nov, [facility] [address] [id number] [address] [place] [address], [place] [address] Nov, [facility] [address] [id number] [address] [place] [address], [place] [address] Nov, [facility] [address] [id number] [address] [place] [address], [place] [address] Nov, [facility] [address] [id number] [address] [place] [address], [place] [address] Nov, [facility] [address] [id number] [address] [place] [address], [place] [address] Oct, [facility] [address] [id number] [address] [place] [address], [place] [address] Oct, [facility] [address] [id number] [address] [place] [address], [place] [address] Oct, [facility] [address] [id number] [address] [place] [address], [place] [address] Oct, [facility] [address] [id number] [address] [place] [address], [place] [address] Oct, [facility] [address] [id number] [address] [place] [address], [place] [address] Oct, [facility] [address] [id number] [address] [place] [address], [place] [address] Oct, [facility] [address] [id number] [address] [place] [address], [place] [address] Oct, [facility] [address] [id number] [address] [place] [address], [place] [address] Sep, Suleiman PEREZ [address] [id number] [id number] 30 Aug, 2012 [facility] [address] [id number] [address] [place] [address], [place] [address] August, [facility] [address] [id number] [address] [place] [address], [place] [address] Jul, [facility] [address] [id number] [address] [place] [address], [place] [address] Jul, [facility] [address] [id number] [address] [place] [address], [place] [address] Jul, [facility] [address] [id number] [address] [place] [address], [place] [address] Jul, [facility] [address] [id number] [address] [place] [address], [place] [address] Jul, [facility] [address] [id number] [address] [place] [address], [place] [address] 17 Jul, 2012 [facility] [address] [id number] [address] [place] [address], [place] [address] 16 Jul, 2012 [facility] [address] [id number] [address] [place] [address], [place] [address] Jun, [facility] [address] [id number] [address] [place] [address], [place] [address] Jun, [facility] [address] [id number] [address] [place] [address], [place] [address] Jun, [facility] [address] [id number] [address] [place] [address], [place] [address] Jun, [facility] [address] [id number] [address] [place] [address], [place] [address] Jun, [facility] [address] [id number] [address] [place] [address], [place] [address] 19 May, 2012 [facility] [address] [id number] [address] [place] [address], [place] [address] 18 May, 2012 [facility] [address] [id number] [address] [place] [address], [place] [address] 04 May, 2012 [facility] [address] [id number] [address] [place] [address], [place] [address] 15 Apr, 2012 [facility] [address] [id number] [address] [place] [address], [place] [address] 14 Apr, 2012 [facility] [address] [id number] [address] [place] [address], [place] [address] 07 Apr, 2012 [facility] [address] [id number] [address] [place] [address], [place] [address] Mar, [facility] [address] [id number] [address] [place] [address], [place] [address] Mar, [facility] [address] [id number] [address] [place] [address], [place] [address] Mar, [facility] [address] [id number] [address] [place] [address], [place] [address] Mar, [facility] [address] [id number] [address] [place] [address], [place] [address] Mar, [facility] [address] [id number] [address] [place] [address], [place] [address] Mar, [facility] [address] [id number] [address] [place] [address], [place] [address] Feb, [facility] [address] [id number] [address] [place] [address], [place] [address] Feb, [facility] [address] [id number] [address] [place] [address], [place] [address] Jan, [facility] [address] [id number] [address] [place] [address], [place] [address] Jan, [facility] [address] [id number] [address] [place] [address], [place] [address] Dec, [facility] [address] [id number] [address] [place] [address] [place] [address] Nov, [facility] [address] [id number] [address] [place] [address], [place] [address] Nov, [facility] [address] [id number] [address] [place] [address], [place] [address] Nov, [facility] [address] [id number] [address] [place] [address], [place] [address] Nov, [facility] [address] [id number] [address] [place] [address], [place] [address] Oct, [facility] [address] [id number] [address] [place] [address], [place] [address] Oct, [facility] [address] [id number] [address] [place] [address], [place] [address] Oct, [facility] [address] [id number] [address] [place] [address], [place] [address] Sep, [facility] [address] [id number] [address] [place] [address], [place] [address] Sep, [facility] [address] [id number] [address] [place] [address], [place] [address] Sep, [facility] [address] [id number] [address] [place] [address], [place] [address] August, [facility] [address] [id number] [address] [place] [address], [place] [address] August, [facility] [address] [id number] [address] [place] [address], [place] [address] Jul, [facility] [address] [id number] [address] [place] [address], [place] [address] 24 Jul, 2011 [facility] [address] [id number] [address] [place] [address], [place] [address] Jul, [facility] [address] [id number] [address] [place] [address], [place] [address] Jul, [facility] [address] [id number] [address] [place] [address], [place] [address] Jun, [facility] [address] [id number] [address] [place] [address], [place] [address] 06 May, 2011 [facility] [address] [id number] [address] [place] [address], [place] [address] Apr, [facility] [address] [id number] [address] [place] [address], [place] [address] Apr, [facility] [address] [id number] [address] [place] [address], [place] [address] Apr, [facility] [address] [id number] [address] [place] [address], [place] [address] Apr, [facility] [address] [id number] [address] [place] [address], [place] [address] Apr, [facility] [address] [id number] [address] [place] [address], [place] [address] Apr, [facility] [address] [id number] [address] [place] [address], [place] [address] Mar, [facility] [address] [id number] [address] [place] [address], [place] [address] Mar, [facility] [address] [id number] [address] [place] [address], [place] [address] Feb, [facility] [address] [id number] [address] [place] [address], [place] [address] Feb, [facility] [address] [id number] [address] [place] [address], [place] [address] 17 Feb, 2011 [facility] [address] [id number] [address] [place] [address], [place] [address] 09 Feb, 2011 [facility] [address] [id number] [address] [place] [address], [place] [address] 20 Jan, 2011 [facility] [address] [id number] [address] [place] [address], [place] [address] 18 Jan, 2011 [facility] [address] [id number] [address] [place] [address], [place] [address] 18 Jan, 2011 [facility] [address] [id number] [address] [place] [address], [place] [address] 18 Jan, 2011 [facility] [address] [id number] [address] [place] [address], [place] [address] 17 Nov, 2010 [facility] [address] [id number] [address] [place] [address], [place] [address] Mar, [facility] [address] [id number] [address] [place] [address], [place] [address] Mar, [facility] [address] [id number] [address] [place] [address], [place] [address] 30 Feb, 2010 [facility] [address] [id number] [address] [place] [address], [place] [address] Feb, [facility] [address] [id number] [address] [place] [address], [place] [address] Jan, [facility] [address] [id number] [address] [place] [address], [place] [address] Jan, [facility] [address] [id number] [address] [place] [address], [place] [address] Sep, [facility] [address] [id number] [address] [place] [address], [place] [address] 16 May, 2009 [facility] [address] [id number] [address] [place] [id number] Apr, [facility] [address] [id number] [address] [place] [address], [place] [address] Mar, [facility] [address] [id number] [address] [place] [id number] 15 Feb, 2009 [facility] [address] [id number] [address] [place] [place] [id number] Feb, [facility] [address] [id number] [address] [place] [phone] Feb, [facility] [address] [facility] [id number] [address] [place] [phone] Jan, [facility] [address] [facility] [id number] [address] [place] [phone] Jan, [facility] [address] [facility] [id number] [address] [place] [phone] Jan, [facility] [address] [facility] [id number] [address] [place] [phone] Jan, [facility] [address] [facility] [id number] [address] [place] [phone] August, IMMUNIZATIONS Vaccine Route Administration Date Status influenza IIV3 (history) Unknown May 12, 2014 Adminis tered SOCIAL HISTORY Never Assessed REASON FOR VISIT PLAN OF CARE VITAL SIGNS Height 65 in 2014-05-12 Weight 213.1 lbs 2014-05-12 Temperature 98.1 degrees Fahrenheit 2014-05-12 Heart Rate 84 bpm 2014-05-12 Respiratory Rate 18 2014-05-12 Blood pressure systolic 128 mmHg 2014-05-12 Blood pressure diastolic 70 mmHg 2014-05-12 MEDICATIONS Unknown Medications RESULTS No Results PROCEDURES Procedure Date Ordered Result Body Site COMPLETE CBC W/AUTO DIFF WBC May 12, 2014 MEASURE BLOOD OXYGEN LEVEL May 12, 2014 GLYCATED HEMOGLOBIN TEST May 12, 2014 INSTRUCTIONS MEDICATIONS ADMINISTERED No Known Medications MEDICAL [...] age 6 Hospitalization History surgery Hospitalization History [facility], inme tie treatment few times for BH
--- OUTSIDE RECORDS SUMMARY | 2019-09-29 10:33 | XMS REPORT ---
Author Author Cameron ALANIZ [facility] Address [address] [place] [address] Care Team Providers Care Shopper Marketing Manager Name Role Phone JEET ALANIZ Unavailable PROBLEMS Type Condition ICD9-CM Code XKR15-YE Code Onset Dates Condition S tatus SNOMED Code Problem Open-angle glaucoma of both eyes, unspecified glaucoma stage, unspecified open-angle glaucoma type H40.10X0 Acti ve 30611096 Problem Adjustment disorder, unspecified type F43.20 Active 14426504 Problem Obstructive sleep apnea G47.33 Active 46898854 Problem Hypertensive retinopathy of both eyes H35.033 Active 5828450 Problem Type 2 diabetes mellitus with complication E11.8 Active 13987664 Problem Essential hypertension I10 Active 25465951 Problem Depression F32.9 Active 91573812 Problem Intermittent explosive disorder F63.81 Active 24675644 Problem Intermittent explosive disorder in adult F63.81 Active 20576339 Problem Bipolar disorder, unspecified F31.9 Active 60377926 Problem Mild intellectual disability F70 A ctive 91854335 Problem Other specified urinary incontinence N39.498 Active 995820956 Problem Bipolar disorder, in partial remission, most rec ent episode manic F31.73 Active 49215094 Problem 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 Active 79642272 Problem Type 2 diabetes mellitus wit h diabetic neuropathy, 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 Active 636109 560684337 Problem Diabetes E11.9 Active 07277313 Problem Reactive airway disease, unspecified asthma justin rity, uncomplicated J45.909 Active 683323319282 Problem Reactive airway disease, mild intermittent, uncomplicated J45.20 Active 948584125 Problem Gastroesophageal reflux disease without esophagitis K21.9 Active 034588846 Problem Other diabetic neurological complication associated with type 2 diabetes mellitus E11.49 Active 016625238 Problem Neuropathy G62.9 Active 536770704 ALLERGIES No Information ENCOUNTERS Encounter Location Date Diagnosis [facility] [id number] [address] [place] [phone] Oct, [facility] [address] [address] August, [facility] [id number] [place] [id number] Jul, [facility] [address] [address] Jul, Type 2 diabetes mellitus wit h diabetic neuropathy, unspecified whether mcc insulin use E11.40 and Tinea pedis, unspecified laterality B35.3 [facility] [id number] [place] [id number] 10 Jun, 2019 [facility] [address] [address] Jun, [facility] [address] [id number] [address] [place] [phone] 04 Jun, 2019 Dysuria R30.0 [facility] [address] [id number] [address] [place] [address] Jun, [facility] [id number] [place] [address] May, Influenza J11.1 [facility] [address] [id number] [address] [place] [id number] 13 May, 2019 Intermittent explosive disor salvatore in adult F63.81 [facility] [id number] [place] [id number] May, [facility] [id number] [place] [address] Apr, Intermittent explosive disor salvatore in adult F63.81 ; Bipolar disorder, unspecified F31.9 and Mild intellectual disability F70 [facility] [id number] [place] [phone] Apr, Oral health maintenance stat us requiring routine preventive dental care K08.9 [facility] [address] [facility] [id number] [address] [place] [address] Apr, Type 2 diabetes mellitus wit h complication E11.8 ; History of test for hearing Z92.89 ; Colon cancer screening Z12.11 ; Other specified urinary incontinence N39.498 and Impacted cerumen, right ear H61.21 [facility] [address] [facility] [id number] [address] [place] [address] 10 Apr, 2019 Onychomycosis B35.1 ; Other diabetic neurological complication associated with type 2 diabetes mellitus E11.49 and Tinea pedis of both feet B35.3 [facility] [address] [facility] [id number] [address] [place] [phone] 14 Feb, 2019 [facility] [address] [id number] [address] [place] [phone] Jan, [facility] [address] [facility] [id number] [address] [place] [id number] Jan, [facility] [address] [facility] [id number] [address] [place] [address] Jan, [facility] [address] [facility] [id number] [address] [place] [phone] Jan, [facility] [address] [facility] [id number] [address] [place] [address] Jan, [facility] [address] [facility] [id number] [address] [place] [address] Jan, [facility] [address] [facility] [id number] [address] [place] [phone] Jan, [facility] [address] [facility] [id number] [address] [place] [address] Jan, Anemia D64.9 [facility] [id number] [place] [id number] 04 Jan, 2019 Dental examination Z01.20 an d Oral health maintenance status requiring routine preventive dental care K08.9 [facility] [address] [facility] [id number] [address] [place] [address] Jan, Onychomycosis B35.1 and Othe r diabetic neurological complication associated with type 2 diabetes mellitus E11.49 [facility] [address] [id number] [address] [place] [phone] Jan, Anemia D64.9 [facility] [address] [id number] [address] [place] [address] Jan, [place] [address] [address] [facility] [id number] [address] [place] [address] Dec, Urinary tract infection with out hematuria, site unspecified N39.0 [place] [address] [facility] [id number] [address] [place] [address] Dec, Type 2 diabetes mellitus wit h complication E11.8 ; Urinary tract infection without hematuria, site unspecified N39.0 ; Impacted cerumen of both ears H61.23 ; Encounter for immunization Z23 and Hyponatremia E87.1 [place] [address] [facility] [id number] [address] [place] [id number] Dec, Intermittent explosive disor salvatore in adult F63.81 ; Dysuria R30.0 ; Type 2 diabetes mellitus with complication E11.8 ; Bipolar disorder, unspecified F31.9 and Mild intellectual disability F70 [place] [address] [id number] [address] [place] [id number] Dec, Dysuria R30.0 [place] [address] [id number] [address] [place] [address] Dec, Intermittent explosive disor salvatore in adult F63.81 ; Bipolar disorder, unspecified F31.9 and Mild intellectual disability F70 [address] [address] [id number] [address] [place] [phone] Nov, [place] [address] [facility] [id number] [address] [place] [phone] Oct, [facility] [id number] [place] [address] Oct, Oral health maintenance stat us requiring routine preventive dental care K08.9 [facility] [address] [facility] [id number] [address] [place] [address] August, Intermittent explosive disor salvatore in adult F63.81 ; Bipolar disorder, unspecified F31.9 and Mild intellectual disability F70 [facility] [address] [facility] [id number] [address] [place] [address] [id number] August, Dental caries K02.9 [facility] [address] [facility] [id number] [address] [place] [phone] Jul, Onychomycosis B35.1 ; Other diabetic neurological complication associated with type 2 diabetes mellitus E11.49 and Tinea pedis of both feet B35.3 [facility] [address] [facility] [id number] [address] [place] [address] [id number] Jul, Caries K02.9 [facility] [address] [facility] [id number] [address] [place] [address] Jul, Type 2 diabetes mellitus wit h complication E11.8 ; Tobacco abuse Z72.0 and Bipolar disorder, unspecified F31.9 [facility] [address] [facility] [id number] [address] [place] [address] Jun, [facility] [address] [facility] [id number] [address] [place] [address] [id number] Jun, Dental examination Z01.20 an d Oral health maintenance status requiring routine preventive dental care K08.9 [facility] [address] [facility] [id number] [address] [place] [address] May, Bilateral impacted cerumen H 61.23 [facility] [address] [facility] [id number] [address] [place] [address] Apr, Bipolar disorder, unspecifie d F31.9 ; Intermittent explosive disorder in adult F63.81 ; Type 2 diabetes mellitus with complication E11.8 ; Tobacco abuse Z72.0 and Colon cancer screening Z12.11 [facility] [address] [facility] [id number] [address] [place] [address] Apr, Onychomycosis B35.1 and Othe r diabetic neurological complication associated with type 2 diabetes mellitus E11.49 [facility] [address] [facility] [id number] [address] [place] [address] Apr, Intermittent explosive disor salvatore in adult F63.81 ; Bipolar disorder, unspecified F31.9 and Mild intellectual disability F70 [facility] [address] [facility] [id number] [address] [place] [phone] 03 Mar, 2018 Diabetes E11.9 [facility] [address] [facility] [id number] [address] [place] [phone] Jan, Encounter for immunization Z 23 [facility] [address] [facility] [id number] [address] [place] [address] Jan, Tinea pedis of both feet B35 .3 ; Other diabetic neurological complication associated with type 2 diabetes mellitus E11.49 and Onychomycosis B35.1 [facility] [address] [facility] [id number] [address] [place] [address] Nov, Type 2 diabetes mellitus wit h complication E11.8 [facility] [address] [facility] [id number] [address] [place] [phone] Nov, [facility] [address] [facility] [id number] [address] [place] [address] Oct, Intermittent explosive disor salvatore in adult F63.81 ; Bipolar disorder, unspecified F31.9 and Mild intellectual disability F70 [facility] [address] [facility] [id number] [address] [place] [phone] Oct, [facility] [address] [id number] [address] [place] [address] [id number] 11 Oct, 2017 Dental examination Z01.20 [facility] [address] [facility] [id number] [address] [place] [address] Oct, Onychomycosis B35.1 and Othe r diabetic neurological complication associated with type 2 diabetes mellitus E11.49 [facility] [address] [facility] [id number] [address] [place] [phone] Sep, Type 2 diabetes mellitus wit h complication E11.8 and Colon cancer screening Z12.11 [facility] [address] [facility] [id number] [address] [place] [phone] 18 Sep, 2017 Type 2 diabetes mellitus wit h complication E11.8 ; Colon cancer screening Z12.11 and Neuropathy G62.9 [facility] [address] [facility] [id number] [address] [place] [address] August, Diabetes E11.9 [facility] [address] [facility] [id number] [address] [place] [id number] Jul, Dental examination Z01.20 [facility] [address] [facility] [id number] [address] [place] [phone] 27 May, 2017 Mild intellectual disability F70 [place] [address] [facility] [id number] [address] [place] [address] May, Mild intellectual disability F70 ; High risk medication use Z79.899 ; Intermittent explosive disorder in adult F63.81 and Bipolar disorder, unspecified F31.9 [facility] [address] [facility] [id number] [address] [place] [phone] May, [facility] [address] [facility] [id number] [address] [place] [phone] May, [facility] [address] [facility] [id number] [address] [place] [id number] Apr, Type 2 diabetes mellitus wit h complication E11.8 ; Mild intellectual disability F70 ; Gastroesophageal reflux disease without esophagitis K21.9 ; Reactive airway disease, mild intermittent, uncomplicated J45.20 and Tobacco abuse Z72.0 [place] [address] [facility] [id number] [address] [place] [address] Apr, High risk medication use Z79 .899 ; Mild intellectual disability F70 ; Intermittent explosive disorder in adult F63.81 and Bipolar disorder, unspecified F31.9 [facility] [address] [id number] [address] [place] [address] [id number] 27 Mar, 2017 Encounter for dental exam an d cleaning w/o abnormal findings Z01.20 [facility] [address] [id number] [address] [place] [address] [id number] 27 Mar, 2017 Dental examination Z01.20 [facility] [address] [id number] [address] [place] [phone] 12 Jan, 2017 [facility] [address] [id number] [address] [place] [phone] 11 Jan, 2017 [facility] [address] [id number] [address] [place] [phone] 10 Jan, 2017 Mild intellectual disability F70 ; Bipolar disorder, unspecified F31.9 and Intermittent explosive disorder in adult F63.81 [facility] [address] [id number] [address] [place] [phone] 02 Jan, 2017 Diabetes E11.9 [facility] [address] [id number] [address] [place] [address] [id number] 13 Dec, 2016 Encounter for dental examina tion and cleaning without abnormal findings Z01.20 [facility] [address] [id number] [address] [place] [id number] 12 Dec, 2016 Bipolar disorder, unspecifie d F31.9 ; Intermittent explosive disorder in adult F63.81 and Mild intellectual disability F70 [facility] [address] [id number] [address] [place] [address] Nov, Diabetes E11.9 [facility] [address] [id number] [address] [place] [phone] Nov, [facility] [address] [id number] [address] [place] [phone] Nov, Diabetes E11.9 and Colon can cer screening Z12.11 [facility] [address] [id number] [id number] 21 Sep, 2016 Dental examination Z01.20 [facility] [address] [id number] [address] [place] [address] [id number] 21 Sep, 2016 Encounter for dental examina tion and cleaning without abnormal findings Z01.20 [facility] [address] [id number] [address] [place] [phone] 13 Sep, 2016 Bipolar disorder, unspecifie d F31.9 [facility] [address] [id number] [address] [place] [id number] 12 Sep, 2016 Bipolar disorder, unspecifie d F31.9 [facility] [address] [id number] [address] [place] [phone] 26 Jul, 2016 [facility] [address] [facility] [id number] [address] [place] [address] Jul, Type 2 diabetes mellitus wit h complication E11.8 [facility] [address] [id number] [address] [place] [address] [id number] 15 Jun, 2016 Encounter for dental examina tion and cleaning without abnormal findings Z01.20 [facility] [address] [id number] [id number] 15 Jun, 2016 Dental examination Z01.20 [facility] [address] [id number] [address] [place] [phone] 18 Apr, 2016 Sports physical Z02.5 [facility] [address] [id number] [address] [place] [phone] 14 Mar, 2016 Bipolar disorder, in partial remission, most recent episode manic F31.73 and Intermittent explosive disorder in adult F63.81 [facility] [address] [id number] [address] [place] [id number] 08 Mar, 2016 [facility] [address] [id number] [address] [place] [phone] 06 Mar, 2016 Diabetes E11.9 [facility] [address] [facility] [id number] [address] [place] [address] [id number] 03 Feb, 2016 Encounter for dental examina tion and cleaning without abnormal findings Z01.20 [facility] [address] [facility] [id number] [place] [phone] 22 Dec, 2015 Nocturnal hypoxemia G47.34 a nd Encounter for immunization Z23 [facility] [address] [facility] [id number] [place] [id number] 15 Dec, 2015 [facility] [address] [id number] 12 Dec, 2015 [facility] [address] [facility] [id number] [address] Dec, Bipolar disorder, unspecifie d F31.9 [facility] [address] [facility] [id number] [address] [place] [address] [id number] Oct, Encounter for dental examina tion and cleaning without abnormal findings Z01.[address] [facility] [id number] [place] [address] [id number] Oct, Dental examination Z01.20 [place] [address] [address] Oct, Diabetes E11.9 [place] [address] [address] Oct, Diabetes E11.9 ; Reactive ai rway disease, mild intermittent, uncomplicated J45.20 and Tobacco abuse Z72.0 [facility] [address] [address] Sep, Bipolar disorder, unspecifie d F31.9 and Depression F32.9 [place] [address] [address] Sep, [place] [address] [place] [id number] [place] [phone] August, Tinea pedis of both feet B35 .3 and DM w/o complication type II, uncontrolled E11.65 [place] [address] [address] Jul, [place] [address] [address] Jul, [place] [address] [address] Jul, Obstructive sleep apnea G47. 33 [place] [address] [address] Jun, Diabetes E11.9 [place] [address] [address] Jun, [place] [address] [address] Jun, [place] [address] [address] Jun, Bipolar disorder, unspecifie d F31.9 and Mental retardation F79 [place] [address] [address] Apr, [place] [address] [address] Feb, Diabetes E11.9 ; Encounter f or immunization Z23 ; Cough R05 and Nicotine abuse Z72.0 [place] [address] [address] Jan, Bipolar disorder, unspecifie d F31.9 and Diabetes mellitus without mention of complication, type II or unspecified type, uncontrolled 250.02 [place] [address] [address] Jan, [place] [address] [address] Dec, Reactive airway disease 493. 90 and Enuresis 788.30 [place] [address] [address] Dec, [facility] [address] [facility] [id number] [address] [place] [phone] Nov, [facility] [address] [facility] [id number] [address] [place] [phone] Nov, [facility] [address] [facility] [id number] [address] [place] [address] Nov, Annual physical exam V70.0 ; Urinary incontinence 788.30 ; Diabetes 250.00 and Hypertension 401.9 [facility] [address] [id number] [address] [place] [address] Oct, Diabetes mellitus without me ntion of complication, type II or unspecified type, uncontrolled 250.02 [facility] [address] [facility] [id number] [address] [place] [id number] Oct, Diabetes mellitus without me ntion of complication, type II or unspecified type, uncontrolled 250.02 [facility] [address] [facility] [id number] [address] [place] [id number] Oct, Diabetes mellitus without me ntion of complication, type II or unspecified type, uncontrolled 250.02 [facility] [address] [facility] [id number] [address] [place] [phone] Oct, [facility] [address] [facility] [id number] [address] [place] [phone] Oct, [facility] [address] [facility] [id number] [address] [place] [phone] Oct, Bipolar disorder, unspecifie d 296.80 [facility] [address] [id number] [address] [place] [id number] Sep, Dental examination V72.2 [facility] [address] [facility] [id number] [address] [place] [id number] August, [facility] [address] [id number] [address] [place] [id number] August, Dental examination V72.2 [facility] [address] [id number] [address] [place] [address], [place] [id number] August, [facility] [address] [id number] [address] [place] [address], [place] [id number] 14 Jul, 2014 [facility] [address] [id number] [address] [place] [address], [place] [id number] 13 Jul, 2014 [facility] [address] [id number] [address] [place] [address], [place] [id number] 17 Jun, 2014 [facility] [facility] [address] [id number] [address] [place] [address], [place] [address] 17 Jun, 2014 [facility] [address] [id number] [address] [place] [address], [place] [address] Jun, [facility] [address] [id number] [address] [place] [address], [place] [address] Jun, [facility] [address] [id number] [address] [place] [address], [place] [address] 23 May, 2014 [facility] [address] [id number] [address] [place] [address], [place] [address] 23 May, 2014 [facility] [address] [id number] [address] [place] [address], [place] [address] 16 May, 2014 [facility] [address] [id number] [address] [place] [address], [place] [address] 16 May, 2014 [facility] [address] [id number] [address] [place] [address], [place] [address] 16 May, 2014 [facility] [address] [id number] [address] [place] [address], [place] [address] May, 2014 [facility] [address] [id number] [address] [place] [address], [place] [address] 16 May, 2014 [facility] [address] [id number] [address] [place] [address], [place] [address] 16 May, 2014 [facility] [address] [id number] [address] [place] [address] [place] [address] 16 May, 2014 [facility] [address] [id number] [address] [place] [address], [place] [address] May, 2014 [facility] [address] [id number] [address] [place] [address], [place] [address] May, 2014 [facility] [address] [id number] [address] [place] [address], [place] [address] May, 2014 [facility] [address] [id number] [address] [place] [address], [place] [address] May, 2014 [facility] [address] [id number] [address] [place] [address], [place] [address] May, 2014 [facility] [address] [id number] [address] [place] [address], [place] [address] May, [facility] [address] [id number] [address] [place] [address], [place] [address] Apr, [facility] [address] [id number] [address] [place] [address], [place] [address] Apr, [facility] [address] [id number] [address] [place] [address], [place] [address] Apr, [facility] [address] [id number] [address] [place] [address], [place] [address] Apr, [facility] [address] [id number] [address] [place] [address], [place] [address] Apr, [facility] [address] [id number] [address] [place] [address], [place] [address] Apr, [facility] [address] [id number] [address] [place] [address], [place] [address] Apr, [facility] [address] [id number] [address] [place] [address], [place] [address] Apr, [facility] [address] [id number] [address] [place] [address], [place] [address] Apr, [facility] [address] [id number] [address] [place] [address], [place] [address] Apr, [facility] [address] [id number] [address] [place] [address], [place] [address] Apr, [facility] [address] [id number] [address] [place] [address], [place] [address] Apr, [facility] [address] [id number] [address] [place] [address], [place] [address] Mar, [facility] [address] [id number] [address] [place] [address], [place] [address] Mar, [facility] [address] [id number] [address] [place] [address], [place] [address] Mar, [facility] [address] [id number] [address] [place] [address], [place] [address] Mar, [facility] [address] [id number] [address] [place] [address], [place] [address] Mar, [facility] [address] [id number] [address] [place] [address], [place] [address] Mar, [facility] [address] [id number] [address] [place] [address], [place] [address] Feb, [facility] [address] [id number] [address] [place] [address], [place] [address] Feb, [facility] [address] [id number] [address] [place] [address], [place] [address] 13 Feb, 2014 [facility] [address] [id number] [address] [place] [address], [place] [address] Feb, [facility] [address] [id number] [address] [place] [address], [place] [address] 14 Jan, 2014 [facility] [address] [id number] [address] [place] [address], [place] [address] 14 Jan, 2014 [facility] [address] [id number] [address] [place] [id number] 14 Jan, 2014 [facility] [address] [id number] [address] [place] [address], [place] [address] Jan, [facility] [address] [id number] [address] [place] [address], [place] [address] Dec, [facility] [address] [id number] [address] [place] [address], [place] [address] Dec, [facility] [address] [id number] [address] [place] [address], [place] [address] Dec, [facility] [address] [id number] [address] [place] [address], [place] [address] Dec, [facility] [address] [id number] [address] [place] [address], [place] [address] Nov, [facility] [address] [id number] [address] [place] [address], [place] [address] Nov, [facility] [address] [id number] [address] [place] [address], [place] [address] Nov, [facility] [address] [id number] [address] [place] [address], [place] [address] Nov, [facility] [address] [id number] [address] [place] [address], [place] [address] Nov, [facility] [address] [id number] [address] [place] [address], [place] [address] Nov, [facility] [address] [id number] [address] [place] [address], [place] [address] Nov, [facility] [address] [id number] [address] [place] [address], [place] [address] Oct, [facility] [address] [id number] [address] [place] [address], [place] [address] Oct, [facility] [address] [id number] [address] [place] [address], [place] [address] Oct, [facility] [address] [id number] [facility] [address] Oct, [facility] [address] [id number] [facility] [address] Oct, [facility] [address] [id number] [facility] [address] Oct, [facility] [address] [id number] [address] [place] [address], [place] [address] Oct, [facility] [address] [id number] [address] [place] [address], [place] [address] Sep, [facility] [address] [id number] [address] [place] [address], [place] [address] Sep, [facility] [address] [id number] [address] [place] [address], [place] [address] Sep, [facility] [address] [id number] [address] [place] [address], [place] [address] Sep, [facility] [address] [id number] [address] [place] [address], [place] [address] Sep, [facility] [address] [id number] [address] [place] [address], [place] [address] Jul, [facility] [address] [id number] [address] [place] [address], [place] [address] Jul, [facility] [address] [id number] [address] [place] [address], [place] [address] Jul, [facility] [address] [id number] [address] [place] [address], [place] [address] Jul, [facility] [address] [id number] [address] [place] [address], [place] [address] Jul, [facility] [address] [id number] [address] [place] [address], [place] [address] Jul, [facility] [address] [id number] [address] [place] [address], [place] [address] Jul, [facility] [address] [id number] [address] [address] Jul, [facility] [address] [id number] [address] [place] [address], [place] [address] Jul, [facility] [address] [id number] [address] [place] [address], [place] [address] Jul, [facility] [address] [id number] [address] [place] [address], [place] [address] Jul, [facility] [address] [id number] [address] [place] [address], [place] [address] Jul, [facility] [address] [id number] [address] [place] [address], [place] [address] Jun, [facility] [address] [id number] [address] [place] [address], [place] [address] Jun, [facility] [address] [id number] [address] [place] [address], [place] [address] Jun, [facility] [address] [id number] [address] [place] [address], [place] [address] Jun, [facility] [address] [id number] [address] [place] [address], [place] [address] Jun, [facility] [address] [id number] [address] [place] [address], [place] [address] Jun, [facility] [address] [id number] [address] [place] [address], [place] [address] Jun, [facility] [address] [id number] [address] [place] [address], [place] [address] Jun, [facility] [address] [id number] [address] [place] [address], [place] [address] May, [facility] [address] [id number] [address] [place] [address], [place] [address] May, [facility] [address] [id number] [address] [place] [address], [place] [address] May, [facility] [address] [id number] [address] [place] [address], [place] [address] May, [facility] [address] [id number] [address] [place] [address], [place] [address] May, [facility] [address] [id number] [address] [place] [address], [place] [address] May, [facility] [address] [id number] [address] [place] [address], [place] [address] May, [facility] [address] [id number] [address] [place] [address], [place] [address] May, [facility] [address] [id number] [address] [place] [address], [place] [address] Apr, [facility] [address] [id number] [address] [place] [address], [place] [address] Apr, [facility] [address] [id number] [address] [place] [address], [place] [address] Apr, [facility] [address] [id number] [address] [place] [address], [place] [address] Apr, [facility] [address] [id number] [address] [place] [address], [place] [address] Mar, [facility] [address] [id number] [address] [place] [address], [place] [address] Mar, [facility] [address] [id number] [address] [place] [address], [place] [address] Mar, [facility] [address] [id number] [address] [place] [address], [place] [address] Feb, [facility] [address] [id number] [address] [place] [address], [place] [address] Feb, [facility] [address] [id number] [address] [place] [address], [place] [address] Feb, [facility] [address] [id number] [address] [place] [address], [place] [address] Feb, [facility] [address] [id number] [address] [place] [address], [place] [address] Feb, [facility] [address] [id number] [address] [place] [address], [place] [address] Feb, [facility] [address] [id number] [address] [place] [address], [place] [address] Jan, [facility] [address] [id number] [address] [place] [address], [place] [address] Jan, [facility] [address] [id number] [address] [place] [address], [place] [address] Jan, [facility] [address] [id number] [address] [place] [address], [place] [address] Jan, [facility] [address] [id number] [address] [place] [address], [place] [address] Jan, [facility] [address] [id number] [address] [place] [address], [place] [address] Jan, [facility] [address] [id number] [address] [place] [address], [place] [address] Jan, [facility] [address] [id number] [address] [place] [address], [place] [address] 25 Dec, 2012 [facility] [address] [id number] [address] [place] [id number] 16 Dec, 2012 [facility] [address] [id number] [address] [place] [address], [place] [address] 10 Dec, 2012 [facility] [address] [id number] [address] [place] [address], [place] [address] 05 Dec, 2012 [facility] [address] [id number] [address] [place] [address], [place] [address] Nov, [facility] [address] [id number] [address] [place] [address], [place] [address] Nov, [facility] [address] [id number] [address] [place] [address], [place] [address] Nov, [facility] [address] [id number] [address] [place] [address], [place] [address] Nov, [facility] [address] [id number] [address] [place] [address], [place] [address] Nov, [facility] [address] [id number] [address] [place] [address], [place] [address] Nov, [facility] [address] [id number] [address] [place] [address], [place] [address] Nov, [facility] [address] [id number] [address] [place] [address], [place] [address] Oct, [facility] [address] [id number] [address] [place] [address], [place] [address] Oct, [facility] [address] [id number] [address] [place] [address], [place] [address] Oct, [facility] [address] [id number] [address] [place] [address], [place] [address] Oct, [facility] [address] [id number] [address] [place] [address], [place] [address] Oct, [facility] [address] [id number] [address] [place] [address], [place] [address] Oct, [facility] [address] [id number] [address] [place] [address], [place] [address] Oct, [facility] [address] [id number] [address] [place] [address], [place] [address] Oct, [facility] [address] [id number] [address] [place] [address], [place] [address] Sep, Suleiman PEREZ [address] [id number] [place] [id number] August, [facility] [address] [id number] [address] [place] [address], [place] [address] August, [facility] [address] [id number] [address] [place] [address], [place] [address] Jul, [facility] [address] [id number] [address] [place] [address], [place] [address] Jul, [facility] [address] [id number] [address] [place] [address], [place] [address] Jul, [facility] [address] [id number] [address] [place] [address], [place] [address] Jul, [facility] [address] [id number] [address] [place] [address], [place] [address] Jul, [facility] [address] [id number] [address] [place] [address], [place] [address] Jul, [facility] [address] [id number] [address] [place] [address], [place] [address] 16 Jul, 2012 [facility] [address] [id number] [address] [place] [address], [place] [address] Jun, [facility] [address] [id number] [address] [place] [address], [place] [address] Jun, [facility] [address] [id number] [address] [place] [address], [place] [address] Jun, [facility] [address] [id number] [address] [place] [address], [place] [address] Jun, [facility] [address] [id number] [address] [place] [address], [place] [address] Jun, [facility] [address] [id number] [address] [place] [address], [place] [address] May, [facility] [address] [id number] [address] [place] [address], [place] [address] May, [facility] [address] [id number] [address] [place] [address] [place] [address] 04 May, 2012 [facility] [address] [id number] [address] [place] [address], [place] [address] 15 Apr, 2012 [facility] [address] [id number] [address] [place] [address], [place] [address] 14 Apr, 2012 [facility] [address] [id number] [address] [place] [address], [place] [address] Apr, [facility] [address] [id number] [address] [place] [address], [place] [address] 31 Mar, 2012 [facility] [address] [id number] [address] [place] [address], [place] [address] Mar, [facility] [address] [id number] [address] [place] [address], [place] [address] Mar, [facility] [address] [id number] [address] [place] [address], [place] [address] Mar, [facility] [address] [id number] [address] [place] [address], [place] [address] Mar, [facility] [address] [id number] [address] [place] [address], [place] [id number] Mar, [facility] [address] [id number] [address] [place] [address], [place] [id number] Feb, [facility] [address] [id number] [address] [place] [address], [place] [id number] Feb, [facility] [address] [id number] [address] [place] [address], [place] [id number] Jan, [facility] [address] [id number] [address] [place] [address], [place] [id number] Jan, [facility] [address] [id number] [address] [place] [address], [place] [id number] Dec, [facility] [address] [id number] [address] [place] [address], [place] [id number] Nov, [facility] [address] [id number] [address] [place] [address], [place] [id number] Nov, [facility] [address] [id number] [address] [place] [address], [place] [id number] Nov, [facility] [address] [id number] [address] [place] [address], [place] [id number] Nov, [facility] [address] [id number] [address] [place] [address], [place] [id number] Oct, [facility] [address] [id number] [address] [place] [address], [place] [address] Oct, [facility] [address] [id number] [address] [place] [address], [place] [id number] Oct, [facility] [address] [id number] [address] [place] [address], [place] [id number] Sep, [facility] [address] [id number] [address] [place] [address], [place] [id number] Sep, [facility] [address] [id number] [address] [place] [address], [place] [id number] Sep, [facility] [address] [id number] [address] [place] [address], [place] [id number] August, [facility] [address] [id number] [address] [place] [address], [place] [id number] August, [facility] [address] [id number] [address] [place] [address], [place] [id number] Jul, [facility] [address] [id number] [address] [place] [address], [place] [id number] 24 Jul, 2011 [facility] [address] [id number] [address] [place] [address], [place] [address] Jul, [facility] [address] [id number] [address] [place] [address], [place] [id number] Jul, [facility] [address] [id number] [address] [place] [address], [place] [id number] Jun, [facility] [address] [id number] [address] [place] [address], [place] [id number] May, [facility] [address] [id number] [address] [place] [address], [place] [id number] Apr, [facility] [address] [id number] [address] [place] [address], [place] [id number] Apr, [facility] [address] [id number] [address] [place] [address], [place] [id number] Apr, [facility] [address] [id number] [address] [place] [address], [place] [id number] Apr, [facility] [address] [id number] [address] [place] [address], [place] [id number] Apr, [facility] [address] [id number] [address] [place] [address], [place] [id number] Apr, [facility] [address] [id number] [address] [place] [address], [place] [address] Mar, [facility] [address] [id number] [address] [place] [address], [place] [id number] Mar, [facility] [address] [id number] [address] [place] [address], [place] [id number] Feb, [facility] [address] [id number] [address] [place] [address], [place] [id number] Feb, [facility] [address] [id number] [address] [place] [address], [place] [id number] Feb, [facility] [address] [id number] [address] [place] [address], [place] [address] Feb, [facility] [address] [id number] [address] [place] [address], [place] [id number] Jan, [facility] [address] [id number] [address] [place] [address], [place] [id number] Jan, [facility] [address] [id number] [address] [place] [address], [place] [id number] 18 Jan, 2011 [facility] [address] [id number] [address] [place] [address], [place] [id number] 18 Jan, 2011 [facility] [address] [id number] [address] [place] [address], [place] [id number] 17 Nov, 2010 [facility] [address] [id number] [address] [place] [address], [place] [id number] 03 Mar, 2010 [facility] [address] [id number] [address] [place] [address], [place] [id number] 02 Mar, 2010 [facility] [address] [id number] [address] [place] [address], [place] [id number] 30 Feb, 2010 [facility] [address] [id number] [address] [place] [address], [place] [id number] 15 Feb, 2010 [facility] [address] [id number] [address] [place] [address], [place] [id number] Jan, [facility] [address] [id number] [address] [place] [address], [place] [id number] Jan, [facility] [facility] [address] [id number] [address] [place] [address], [place] [id number] Sep, [facility] [address] [id number] [address] [place] [address], [place] [id number] 16 May, 2009 [facility] [address] [id number] [address] [place] [address], [place] [id number] Apr, [facility] [address] [id number] [address] [place] [address], [place] [id number] Mar, [facility] [address] [id number] [address] [place] [address], [place] [id number] 15 Feb, 2009 [facility] [address] [id number] [address] [place] [address], [place] [id number] 10 Feb, 2009 [facility] [address] [id number] [address] [place] [address], [place] [phone] Feb, [facility] [address] [facility] [id number] [address] [place] [id number] Jan, [facility] [address] [facility] [id number] [address] [place] [id number] Jan, [facility] [address] [facility] [id number] [address] [place] [phone] Jan, [facility] [address] [facility] [id number] [address] [place] [id number] Jan, [facility] [address] [facility] [id number] [address] [place] [phone] August, IMMUNIZATIONS No Known Immunizations SOCIAL HISTORY [...] History surgery Hospitalization History [facility], indeann webber treatment few times for BH
--- OUTSIDE RECORDS SUMMARY | 2019-09-29 10:33 | XMS REPORT ---
Author Author Cameron ALANIZ [facility] Address [address] [place] [address] Care Team Providers Care Heel Burnisher Name Role Phone JEET ALANIZ Unavailable PROBLEMS Type Condition ICD9-CM Code DPO08-GT Code Onset Dates Condition S tatus SNOMED Code Problem Open-angle glaucoma of both eyes, unspecified glaucoma stage, unspecified open-angle glaucoma type H40.10X0 Acti ve 87791099 Problem Adjustment disorder, unspecified type F43.20 Active 72126786 Problem Obstructive sleep apnea G47.33 Active 05466809 Problem Hypertensive retinopathy of both eyes H35.033 Active 6400781 Problem Type 2 diabetes mellitus with complication E11.8 Active 46046686 Problem Essential hypertension I10 Active 85145283 Problem Depression F32.9 Active 20347069 Problem Intermittent explosive disorder F63.81 Active 30531881 Problem Intermittent explosive disorder in adult F63.81 Active 82438214 Problem Bipolar disorder, unspecified F31.9 Active 35513750 Problem Mild intellectual disability F70 A ctive 71974662 Problem Other specified urinary incontinence N39.498 Active 134383277 Problem Bipolar disorder, in partial remission, most rec ent episode manic F31.73 Active 89673735 Problem 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 Active 46713688 Problem Type 2 diabetes mellitus wit h diabetic neuropathy, 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 Active 569685 933005046 Problem Diabetes E11.9 Active 98904431 Problem Reactive airway disease, unspecified asthma justin rity, uncomplicated J45.909 Active 867355804225 Problem Reactive airway disease, mild intermittent, uncomplicated J45.20 Active 276124320 Problem Gastroesophageal reflux disease without esophagitis K21.9 Active 639265941 Problem Other diabetic neurological complication associated with type 2 diabetes mellitus E11.49 Active 952637661 Problem Neuropathy G62.9 Active 211759359 ALLERGIES No Information ENCOUNTERS Encounter Location Date Diagnosis [facility], [place] [address] [id number] [address] [place] [phone] Oct, [facility], [place] [address] [address] August, [facility], [place] [address] [id number] [address] [place] [address] Jul, [facility], [place] [address] [address] Jul, Type 2 diabetes mellitus wit h diabetic neuropathy, 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 and Tinea pedis, unspecified laterality B35.3 [facility], [place] [address] [id number] [address] [place] [id number] 10 Jun, 2019 [facility], [place] [address] [address] Jun, [facility] [address] [id number] [address] [place] [id number] 04 Jun, 2019 Dysuria R30.0 [facility], [place] [address] [id number] [address] [place] [address] Jun, [facility], [place] [address] [id number] [address] [place] [phone] May, Influenza J11.1 [facility], [place] [address] [id number] [address] [place] [address] 13 May, 2019 Intermittent explosive disor salvatore in adult F63.81 [facility], [place] [address] [id number] [address] [place] [phone] May, [facility], [place] [address] [id number] [address] [place] [address] Apr, Intermittent explosive disor salvatore in adult F63.81 ; Bipolar disorder, unspecified F31.9 and Mild intellectual disability F70 [facility] [id number] [place] [phone] Apr, Oral health maintenance stat us requiring routine preventive dental care K08.9 [facility], [place] [address] [facility] [id number] [address] [place] [address] Apr, Type 2 diabetes mellitus wit h complication E11.8 ; History of test for hearing Z92.89 ; Colon cancer screening Z12.11 ; Other specified urinary incontinence N39.498 and Impacted cerumen, right ear H61.21 [facility], [place] [address] [facility] [id number] [address] [place] [id number] 10 Apr, 2019 Onychomycosis B35.1 ; Other diabetic neurological complication associated with type 2 diabetes mellitus E11.49 and Tinea pedis of both feet B35.3 [facility], [place] [address] [facility] [id number] [address] [place] [phone] 14 Feb, 2019 [facility], [place] [address] [id number] [address] [place] [phone] Jan, [facility], [place] [address] [facility] [id number] [address] [place] [phone] Jan, [facility], [place] [address] [facility] [id number] [address] [place] [phone] Jan, [facility], [place] [address] [facility] [id number] [address] [place] [phone] Jan, [facility], [place] [address] [facility] [id number] [address] [place] [phone] Jan, [facility], [place] [address] [facility] [id number] [address] [place] [phone] Jan, [facility], [place] [address] [facility] [id number] [address] [place] [phone] Jan, [facility], [place] [address] [facility] [id number] [address] [place] [address] Jan, Anemia D64.9 [facility] [id number] [place] [address] 04 Jan, 2019 Dental examination Z01.20 an d Oral health maintenance status requiring routine preventive dental care K08.9 [facility], [place] [address] [facility] [id number] [address] [place] [address] Jan, Onychomycosis B35.1 and Othe r diabetic neurological complication associated with type 2 diabetes mellitus E11.49 [facility], [place] [address] [id number] [address] [place] [phone] Jan, Anemia D64.9 [facility], [place] [address] [id number] [address] [place] [address] Jan, [place] [address] [facility] [id number] [address] [place] [address] Dec, Urinary tract infection with out hematuria, site unspecified N39.0 [place] [address] [facility] [id number] [address] [place] [address] Dec, Type 2 diabetes mellitus wit h complication E11.8 ; Urinary tract infection without hematuria, site unspecified N39.0 ; Impacted cerumen of both ears H61.23 ; Encounter for immunization Z23 and Hyponatremia E87.1 [place] [address] [facility] [id number] [address] [place] [address] Dec, Intermittent explosive disor salvatore in adult F63.81 ; Dysuria R30.0 ; Type 2 diabetes mellitus with complication E11.8 ; Bipolar disorder, unspecified F31.9 and Mild intellectual disability F70 [place] [address] [id number] [address] [place] [address] Dec, Dysuria R30.0 [place] [address] [id number] [address] [place] [address] Dec, Intermittent explosive disor salvatore in adult F63.81 ; Bipolar disorder, unspecified F31.9 and Mild intellectual disability F70 [address] [address] [id number] [address] [place] [address] Nov, [place] [address] [facility] [id number] [address] [place] [phone] Oct, [facility] [id number] [place] [phone] Oct, Oral health maintenance stat us requiring routine preventive dental care K08.9 [facility], [place] [address] [facility] [id number] [address] [place] [address] August, Intermittent explosive disor salvatore in adult F63.81 ; Bipolar disorder, unspecified F31.9 and Mild intellectual disability F70 [facility] [address] [facility] [id number] [address] [place] [address] [phone] August, Dental caries K02.9 [facility], [place] [address] [facility] [id number] [address] [place] [phone] Jul, Onychomycosis B35.1 ; Other diabetic neurological complication associated with type 2 diabetes mellitus E11.49 and Tinea pedis of both feet B35.3 [facility] [address] [facility] [id number] [address] [place] [address] [id number] Jul, Caries K02.9 [facility], [place] [address] [facility] [id number] [address] [place] [address] Jul, Type 2 diabetes mellitus wit h complication E11.8 ; Tobacco abuse Z72.0 and Bipolar disorder, unspecified F31.9 [facility], [place] [address] [facility] [id number] [address] [place] [phone] Jun, [facility] [address] [facility] [id number] [address] [place] [address] [id number] Jun, Dental examination Z01.20 an d Oral health maintenance status requiring routine preventive dental care K08.9 [facility], [place] [address] [facility] [id number] [address] [place] [address] May, Bilateral impacted cerumen H 61.23 [facility], [place] [address] [facility] [id number] [address] [place] [address] Apr, Bipolar disorder, unspecifie d F31.9 ; Intermittent explosive disorder in adult F63.81 ; Type 2 diabetes mellitus with complication E11.8 ; Tobacco abuse Z72.0 and Colon cancer screening Z12.11 [facility], [place] [address] [facility] [id number] [address] [place] [address] Apr, Onychomycosis B35.1 and Othe r diabetic neurological complication associated with type 2 diabetes mellitus E11.49 [facility], [place] [address] [facility] [id number] [address] [place] [address] Apr, Intermittent explosive disor salvatore in adult F63.81 ; Bipolar disorder, unspecified F31.9 and Mild intellectual disability F70 [facility], [place] [address] [facility] [id number] [address] [place] [id number] 03 Mar, 2018 Diabetes E11.9 [facility] [address] [facility] [id number] [address] [place] [phone] Jan, Encounter for immunization Z 23 [facility], [place] [address] [facility] [id number] [address] [place] [phone] Jan, Tinea pedis of both feet B35 .3 ; Other diabetic neurological complication associated with type 2 diabetes mellitus E11.49 and Onychomycosis B35.1 [facility], [place] [address] [facility] [id number] [address] [place] [address] Nov, Type 2 diabetes mellitus wit h complication E11.8 [facility], [place] [address] [facility] [id number] [address] [place] [phone] Nov, [facility], [place] [address] [facility] [id number] [address] [place] [address] Oct, Intermittent explosive disor salvatore in adult F63.81 ; Bipolar disorder, unspecified F31.9 and Mild intellectual disability F70 [facility], [place] [address] [facility] [id number] [address] [place] [phone] Oct, [facility] [address] [id number] [address] [place] [address] [id number] 11 Oct, 2017 Dental examination Z01.20 [facility], [place] [address] [facility] [id number] [address] [place] [phone] Oct, Onychomycosis B35.1 and Othe r diabetic neurological complication associated with type 2 diabetes mellitus E11.49 [facility], [place] [address] [facility] [id number] [address] [place] [id number] Sep, Type 2 diabetes mellitus wit h complication E11.8 and Colon cancer screening Z12.11 [facility], [place] [address] [facility] [id number] [address] [place] [address] 18 Sep, 2017 Type 2 diabetes mellitus wit h complication E11.8 ; Colon cancer screening Z12.11 and Neuropathy G62.9 [facility], [place] [address] [facility] [id number] [address] [place] [address] August, Diabetes E11.9 [facility] [address] [facility] [id number] [address] [place] [address] [id number] Jul, Dental examination Z01.20 [facility], [place] [address] [facility] [id number] [address] [place] [phone] 27 May, 2017 Mild intellectual disability F70 [place] [address] [facility] [id number] [address] [place] [address] May, Mild intellectual disability F70 ; High risk medication use Z79.899 ; Intermittent explosive disorder in adult F63.81 and Bipolar disorder, unspecified F31.9 [facility], [place] [address] [facility] [id number] [address] [place] [phone] May, [facility], [place] [address] [facility] [id number] [address] [place] [phone] May, [facility], [place] [address] [facility] [id number] [address] [place] [phone] Apr, Type 2 diabetes mellitus wit h complication E11.8 ; Mild intellectual disability F70 ; Gastroesophageal reflux disease without esophagitis K21.9 ; Reactive airway disease, mild intermittent, uncomplicated J45.20 and Tobacco abuse Z72.0 [place] [address] [facility] [id number] [address] [place] [phone] Apr, High risk medication use Z79 .899 ; Mild intellectual disability F70 ; Intermittent explosive disorder in adult F63.81 and Bipolar disorder, unspecified F31.9 [facility] [address] [id number] [address] [place] [address] [id number] 27 Mar, 2017 Encounter for dental exam an d cleaning w/o abnormal findings Z01.20 [facility] [address] [id number] [address] [place] [address] [id number] 27 Mar, 2017 Dental examination Z01.20 [facility], [place] [address] [id number] [address] [place] [phone] 12 Jan, 2017 [facility], [place] [address] [id number] [address] [place] [phone] 11 Jan, 2017 [facility], [place] [address] [id number] [address] [place] [phone] 10 Jan, 2017 Mild intellectual disability F70 ; Bipolar disorder, unspecified F31.9 and Intermittent explosive disorder in adult F63.81 [facility], [place] [address] [id number] [address] [place] [phone] 02 Jan, 2017 Diabetes E11.9 [facility] [address] [id number] [address] [place] [address] [id number] 13 Dec, 2016 Encounter for dental examina tion and cleaning without abnormal findings Z01.20 [facility], [place] [address] [id number] [address] [place] [phone] 12 Dec, 2016 Bipolar disorder, unspecifie d F31.9 ; Intermittent explosive disorder in adult F63.81 and Mild intellectual disability F70 [facility], [place] [address] [id number] [address] [place] [address] Nov, Diabetes E11.9 [facility], [place] [address] [id number] [address] [place] [phone] Nov, [facility], [place] [address] [id number] [address] [place] [phone] Nov, Diabetes E11.9 and Colon can cer screening Z12.11 [facility] [address] [id number] [id number] 21 Sep, 2016 Dental examination Z01.20 [facility] [address] [id number] [address] [place] [address] [id number] 21 Sep, 2016 Encounter for dental examina tion and cleaning without abnormal findings Z01.20 [facility], [place] [address] [id number] [address] [place] [phone] 13 Sep, 2016 Bipolar disorder, unspecifie d F31.9 [facility], [place] [address] [id number] [address] [place] [phone] 12 Sep, 2016 Bipolar disorder, unspecifie d F31.9 [facility], [place] [address] [id number] [address] [place] [phone] 26 Jul, 2016 [facility], [place] [address] [facility] [id number] [address] [place] [address] Jul, Type 2 diabetes mellitus wit h complication E11.8 [facility] [address] [id number] [address] [place] [address] [id number] 15 Jun, 2016 Encounter for dental examina tion and cleaning without abnormal findings Z01.20 [facility] [address] [id number] [id number] 15 Jun, 2016 Dental examination Z01.20 [facility], [place] [address] [id number] [address] [place] [id number] 18 Apr, 2016 Sports physical Z02.5 [facility], [place] [address] [id number] [address] [place] [phone] 14 Mar, 2016 Bipolar disorder, in partial remission, most recent episode manic F31.73 and Intermittent explosive disorder in adult F63.81 [facility], [place] [address] [id number] [address] [place] [phone] 08 Mar, 2016 [facility], [place] [address] [id number] [address] [place] [phone] 06 Mar, 2016 Diabetes E11.9 [facility] [address] [facility] [id number] [address] [place] [address] [id number] 03 Feb, 2016 Encounter for dental examina tion and cleaning without abnormal findings Z01.20 [facility], [place] [address] [facility] [id number] [place] [phone] 22 Dec, 2015 Nocturnal hypoxemia G47.34 a nd Encounter for immunization Z23 [facility], [place] [address] [facility] [id number] [place] [phone] 15 Dec, 2015 [facility], [place] [address] [phone] 12 Dec, 2015 [facility], [place] [address] [facility] [id number] [address] Dec, Bipolar disorder, unspecifie d F31.9 [facility] [address] [facility] [id number] [address] [place] [address] [id number] Oct, Encounter for dental examina tion and cleaning without abnormal findings Z01.20 [facility] [id number] [place] [address] [id number] Oct, Dental examination Z01.20 [place] [address] [address] Oct, Diabetes E11.9 [place] [address] [address] Oct, Diabetes E11.9 ; Reactive ai rway disease, mild intermittent, uncomplicated J45.20 and Tobacco abuse Z72.0 [facility], [place] [address] [address] Sep, Bipolar disorder, unspecifie d F31.9 and Depression F32.9 [place] [address] [address] Sep, [place] [address] [place] [id number] [place] [address] August, Tinea pedis of both feet B35 .3 and DM w/o complication type II, uncontrolled E11.65 [place] [address] [address] Jul, [place] [address] [address] Jul, [place] [address] [address] Jul, Obstructive sleep apnea G47. 33 [place] [address] [address] Jun, Diabetes E11.9 [place] [address] [address] Jun, [place] [address] [address] Jun, [place] [address] [id number] Jun, Bipolar disorder, unspecifie d F31.9 and Mental retardation F79 [place] [address] [address] Apr, [place] [address] [address] Feb, Diabetes E11.9 ; Encounter f or immunization Z23 ; Cough R05 and Nicotine abuse Z72.0 [place] [address] [address] Jan, Bipolar disorder, unspecifie d F31.9 and Diabetes mellitus without mention of complication, type II or unspecified type, uncontrolled 250.02 [place] [address] [address] Jan, [place] [address] [address] Dec, Reactive airway disease 493. 90 and Enuresis 788.30 [place] [address] [address] Dec, [facility], [place] [address] [facility] [id number] [address] [place] [phone] Nov, [facility], [place] [address] [facility] [id number] [address] [place] [address] Nov, [facility], [place] [address] [facility] [id number] [address] [place] [address] Nov, Annual physical exam V70.0 ; Urinary incontinence 788.30 ; Diabetes 250.00 and Hypertension 401.9 [facility] [place] [address] [id number] [address] [place] [address] Oct, Diabetes mellitus without me ntion of complication, type II or unspecified type, uncontrolled 250.02 [facility] [place] [address] [facility] [id number] [address] [place] [address] Oct, Diabetes mellitus without me ntion of complication, type II or unspecified type, uncontrolled 250.02 [facility] [place] [address] [facility] [id number] [address] [place] [address] Oct, Diabetes mellitus without me ntion of complication, type II or unspecified type, uncontrolled 250.02 [facility] [place] [address] [facility] [id number] [address] [place] [phone] Oct, [facility], [place] [address] [facility] [id number] [address] [place] [phone] Oct, [facility] [place] [address] [facility] [id number] [address] [place] [phone] Oct, Bipolar disorder, unspecifie d 296.80 [facility] [address] [id number] [address] [place] [id number] Sep, Dental examination V72.2 [facility], [place] [address] [facility] [id number] [address] [place] [phone] August, [facility] [address] [id number] [address] [place] [id number] August, Dental examination V72.2 [facility] [address] [id number] [address] [place] [address], [place] [phone] August, [facility] [address] [id number] [address] [place] [address], [place] [id number] 14 Jul, 2014 [facility] [address] [id number] [address] [place] [address], [place] [id number] 13 Jul, 2014 [facility] [address] [address] [id number] [address] [place] [address], [place] [address] 17 Jun, 2014 [facility] [address] [id number] [address] [place] [address], [place] [address] 17 Jun, 2014 [facility] [address] [id number] [address] [place] [address], [place] [address] Jun, [facility] [address] [id number] [address] [place] [address], [place] [address] Jun, [facility] [address] [id number] [address] [place] [address], [place] [address] 23 May, 2014 [facility] [address] [id number] [address] [place] [address], [place] [address] 23 May, 2014 [facility] [address] [id number] [address] [place] [address], [place] [address] 16 May, 2014 [facility] [address] [id number] [address] [place] [address], [place] [address] 16 May, 2014 [facility] [address] [id number] [address] [place] [address], [place] [address] 16 May, 2014 [facility] [address] [id number] [address] [place] [address], [place] [address] May, 2014 [facility] [address] [id number] [address] [place] [address], [place] [address] 16 May, 2014 [facility] [address] [id number] [address] [place] [address], [place] [address] 16 May, 2014 [facility] [address] [id number] [address] [place] [address] [place] [address] 16 May, 2014 [facility] [address] [id number] [address] [place] [address], [place] [address] May, 2014 [facility] [address] [id number] [address] [place] [address], [place] [address] May, 2014 [facility] [address] [id number] [address] [place] [address], [place] [address] May, 2014 [facility] [address] [id number] [address] [place] [address], [place] [address] May, 2014 [facility] [address] [id number] [address] [place] [address], [place] [address] May, 2014 [facility] [address] [id number] [address] [place] [address], [place] [address] May, [facility] [address] [id number] [address] [place] [address], [place] [address] Apr, [facility] [address] [id number] [address] [place] [address], [place] [address] Apr, [facility] [address] [id number] [address] [place] [address], [place] [address] Apr, [facility] [address] [id number] [address] [place] [address], [place] [address] Apr, [facility] [address] [id number] [address] [place] [address], [place] [address] Apr, [facility] [address] [id number] [address] [place] [address], [place] [address] Apr, [facility] [address] [id number] [address] [place] [address], [place] [address] Apr, [facility] [address] [id number] [address] [place] [address], [place] [address] Apr, [facility] [address] [id number] [address] [place] [address], [place] [address] Apr, [facility] [address] [id number] [address] [place] [address], [place] [address] Apr, [facility] [address] [id number] [address] [place] [address], [place] [address] Apr, [facility] [address] [id number] [address] [place] [address], [place] [address] Apr, [facility] [address] [id number] [address] [place] [address], [place] [address] Mar, [facility] [address] [id number] [address] [place] [address], [place] [address] Mar, [facility] [address] [id number] [address] [place] [address], [place] [address] Mar, [facility] [address] [id number] [address] [place] [address], [place] [address] Mar, [facility] [address] [id number] [address] [place] [address], [place] [address] Mar, [facility] [address] [id number] [address] [place] [address], [place] [address] Mar, [facility] [address] [id number] [address] [place] [address], [place] [address] Feb, [facility] [address] [id number] [address] [place] [address], [place] [address] Feb, [facility] [address] [id number] [address] [place] [address], [place] [address] 13 Feb, 2014 [facility] [address] [id number] [address] [place] [address], [place] [address] Feb, [facility] [address] [id number] [address] [place] [address], [place] [address] 14 Jan, 2014 [facility] [address] [id number] [address] [place] [address], [place] [address] 14 Jan, 2014 [facility] [address] [id number] [address] [place] [address] 14 Jan, 2014 [facility] [address] [id number] [address] [place] [address], [place] [address] Jan, [facility] [address] [id number] [address] [place] [address], [place] [address] Dec, [facility] [address] [id number] [address] [place] [address], [place] [address] Dec, [facility] [address] [id number] [address] [place] [address], [place] [address] Dec, [facility] [address] [id number] [address] [place] [address], [place] [address] Dec, [facility] [address] [id number] [address] [place] [address], [place] [address] Nov, [facility] [address] [id number] [address] [place] [address], [place] [address] Nov, [facility] [address] [id number] [address] [place] [address], [place] [address] Nov, [facility] [address] [id number] [address] [place] [address], [place] [address] Nov, [facility] [address] [id number] [address] [place] [address], [place] [address] Nov, [facility] [address] [id number] [address] [place] [address], [place] [address] Nov, [facility] [address] [id number] [address] [place] [address], [place] [address] Nov, [facility] [address] [id number] [address] [place] [address], [place] [address] Oct, [facility] [address] [id number] [address] [place] [address], [place] [address] Oct, [facility] [address] [id number] [address] [place] [address], [place] [address] Oct, [facility] [address] [id number] [facility] [place] [address] Oct, [facility] [address] [id number] [facility] [place] [address] Oct, [facility] [address] [id number] [facility] [place] [address] Oct, [facility] [address] [id number] [address] [place] [address], [place] [address] Oct, [facility] [address] [id number] [address] [place] [address], [place] [address] Sep, [facility] [address] [id number] [address] [place] [address], [place] [address] Sep, [facility] [address] [id number] [address] [place] [address], [place] [address] Sep, [facility] [address] [id number] [address] [place] [address], [place] [address] Sep, [facility] [address] [id number] [address] [place] [address], [place] [address] Sep, [facility] [address] [id number] [address] [place] [address], [place] [address] Jul, [facility] [address] [id number] [address] [place] [address], [place] [address] Jul, [facility] [address] [id number] [address] [place] [address], [place] [address] Jul, [facility] [address] [id number] [address] [place] [address], [place] [address] Jul, [facility] [address] [id number] [address] [place] [address], [place] [address] Jul, [facility] [address] [id number] [address] [place] [address], [place] [address] Jul, [facility] [address] [id number] [address] [place] [address], [place] [address] Jul, [facility] [address] [id number] [facility] [place] [address] Jul, [facility] [address] [id number] [address] [place] [address], [place] [address] Jul, [facility] [address] [id number] [address] [place] [address], [place] [address] Jul, [facility] [address] [id number] [address] [place] [address], [place] [address] Jul, [facility] [address] [id number] [address] [place] [address], [place] [address] Jul, [facility] [address] [id number] [address] [place] [address], [place] [address] Jun, [facility] [address] [id number] [address] [place] [address], [place] [address] Jun, [facility] [address] [id number] [address] [place] [address], [place] [address] Jun, [facility] [address] [id number] [address] [place] [address], [place] [address] Jun, [facility] [address] [id number] [address] [place] [address], [place] [address] Jun, [facility] [address] [id number] [address] [place] [address], [place] [address] Jun, [facility] [address] [id number] [address] [place] [address], [place] [address] Jun, [facility] [address] [id number] [address] [place] [address], [place] [address] Jun, [facility] [address] [id number] [address] [place] [address], [place] [address] May, [facility] [address] [id number] [address] [place] [address], [place] [address] May, [facility] [address] [id number] [address] [place] [address], [place] [address] May, [facility] [address] [id number] [address] [place] [address], [place] [address] May, [facility] [address] [id number] [address] [place] [address], [place] [address] May, [facility] [address] [id number] [address] [place] [address], [place] [address] May, [facility] [address] [id number] [address] [place] [address], [place] [address] May, [facility] [address] [id number] [address] [place] [address], [place] [address] May, [facility] [address] [id number] [address] [place] [address], [place] [address] Apr, [facility] [address] [id number] [address] [place] [address], [place] [address] Apr, [facility] [address] [id number] [address] [place] [address], [place] [address] Apr, [facility] [address] [id number] [address] [place] [address], [place] [address] Apr, [facility] [address] [id number] [address] [place] [address], [place] [address] Mar, [facility] [address] [id number] [address] [place] [address], [place] [address] Mar, [facility] [address] [id number] [address] [place] [address], [place] [address] Mar, [facility] [address] [id number] [address] [place] [address], [place] [address] Feb, [facility] [address] [id number] [address] [place] [address], [place] [address] Feb, [facility] [address] [id number] [address] [place] [address], [place] [address] Feb, [facility] [address] [id number] [address] [place] [address], [place] [address] Feb, [facility] [address] [id number] [address] [place] [address], [place] [address] Feb, [facility] [address] [id number] [address] [place] [address], [place] [address] Feb, [facility] [address] [id number] [address] [place] [address], [place] [address] Jan, [facility] [address] [id number] [address] [place] [address], [place] [address] Jan, [facility] [address] [id number] [address] [place] [address], [place] [address] Jan, [facility] [address] [id number] [address] [place] [address], [place] [address] Jan, [facility] [address] [id number] [address] [place] [address], [place] [address] Jan, [facility] [address] [id number] [address] [place] [address], [place] [address] Jan, [facility] [address] [id number] [address] [place] [address], [place] [address] Jan, [facility] [address] [id number] [address] [place] [address], [place] [address] 25 Dec, 2012 [facility] [address] [id number] [address] [place] [address] 16 Dec, 2012 [facility] [address] [id number] [address] [place] [address], [place] [address] 10 Dec, 2012 [facility] [address] [id number] [address] [place] [address], [place] [address] 05 Dec, 2012 [facility] [address] [id number] [address] [place] [address], [place] [address] Nov, [facility] [address] [id number] [address] [place] [address], [place] [address] Nov, [facility] [address] [id number] [address] [place] [address], [place] [address] Nov, [facility] [address] [id number] [address] [place] [address], [place] [address] Nov, [facility] [address] [id number] [address] [place] [address], [place] [address] Nov, [facility] [address] [id number] [address] [place] [address], [place] [address] Nov, [facility] [address] [id number] [address] [place] [address], [place] [address] Nov, [facility] [address] [id number] [address] [place] [address], [place] [address] Oct, [facility] [address] [id number] [address] [place] [address], [place] [address] Oct, [facility] [address] [id number] [address] [place] [address], [place] [address] Oct, [facility] [address] [id number] [address] [place] [address], [place] [address] Oct, [facility] [address] [id number] [address] [place] [address], [place] [address] Oct, [facility] [address] [id number] [address] [place] [address], [place] [address] Oct, [facility] [address] [id number] [address] [place] [address], [place] [address] Oct, [facility] [address] [id number] [address] [place] [address], [place] [address] Oct, [facility] [address] [id number] [address] [place] [address], [place] [address] Sep, Suleiman PEREZ [address] [id number] [id number] August, [facility] [address] [id number] [address] [place] [address], [place] [address] August, [facility] [address] [id number] [address] [place] [address], [place] [address] Jul, [facility] [address] [id number] [address] [place] [address], [place] [address] Jul, [facility] [address] [id number] [address] [place] [address], [place] [address] Jul, [facility] [address] [id number] [address] [place] [address], [place] [address] Jul, [facility] [address] [id number] [address] [place] [address], [place] [address] Jul, [facility] [address] [id number] [address] [place] [address], [place] [address] Jul, [facility] [address] [id number] [address] [place] [address], [place] [address] 16 Jul, 2012 [facility] [address] [id number] [address] [place] [address], [place] [address] Jun, [facility] [address] [id number] [address] [place] [address], [place] [address] Jun, [facility] [address] [id number] [address] [place] [address], [place] [address] Jun, [facility] [address] [id number] [address] [place] [address], [place] [address] Jun, [facility] [address] [id number] [address] [place] [address], [place] [address] Jun, [facility] [address] [id number] [address] [place] [address], [place] [address] May, [facility] [address] [id number] [address] [place] [address], [place] [address] May, [facility] [address] [id number] [address] [place] [address] [place] [address] 04 May, 2012 [facility] [address] [id number] [address] [place] [address], [place] [address] 15 Apr, 2012 [facility] [address] [id number] [address] [place] [address], [place] [address] 14 Apr, 2012 [facility] [address] [id number] [address] [place] [address], [place] [address] Apr, [facility] [address] [id number] [address] [place] [address], [place] [address] 31 Mar, 2012 [facility] [address] [id number] [address] [place] [address], [place] [address] Mar, [facility] [address] [id number] [address] [place] [address], [place] [address] Mar, [facility] [address] [id number] [address] [place] [address], [place] [address] Mar, [facility] [address] [id number] [address] [place] [address], [place] [address] Mar, [facility] [address] [id number] [address] [place] [address], [place] [address] Mar, [facility] [address] [id number] [address] [place] [address], [place] [address] Feb, [facility] [address] [id number] [address] [place] [address], [place] [address] Feb, [facility] [address] [id number] [address] [place] [address], [place] [address] Jan, [facility] [address] [id number] [address] [place] [address], [place] [address] Jan, [facility] [address] [id number] [address] [place] [address], [place] [address] Dec, [facility] [address] [id number] [address] [place] [address], [place] [address] Nov, [facility] [address] [id number] [address] [place] [address], [place] [address] Nov, [facility] [address] [id number] [address] [place] [address], [place] [address] Nov, [facility] [address] [id number] [address] [place] [address], [place] [address] Nov, [facility] [address] [id number] [address] [place] [address], [place] [address] Oct, [facility] [address] [id number] [address] [place] [address], [place] [address] Oct, [facility] [address] [id number] [address] [place] [address], [place] [address] Oct, [facility] [address] [id number] [address] [place] [address], [place] [address] Sep, [facility] [address] [id number] [address] [place] [address], [place] [address] Sep, [facility] [address] [id number] [address] [place] [address], [place] [address] Sep, [facility] [address] [id number] [address] [place] [address], [place] [address] August, [facility] [address] [id number] [address] [place] [address], [place] [address] August, [facility] [address] [id number] [address] [place] [address], [place] [address] Jul, [facility] [address] [id number] [address] [place] [address], [place] [address] 24 Jul, 2011 [facility] [address] [id number] [address] [place] [address], [place] [address] Jul, [facility] [address] [id number] [address] [place] [address], [place] [address] Jul, [facility] [address] [id number] [address] [place] [address], [place] [address] Jun, [facility] [address] [id number] [address] [place] [address], [place] [address] May, [facility] [address] [id number] [address] [place] [address], [place] [address] Apr, [facility] [address] [id number] [address] [place] [address], [place] [address] Apr, [facility] [address] [id number] [address] [place] [address], [place] [address] Apr, [facility] [address] [id number] [address] [place] [address], [place] [address] Apr, [facility] [address] [id number] [address] [place] [address], [place] [address] Apr, [facility] [address] [id number] [address] [place] [address], [place] [address] Apr, [facility] [address] [id number] [address] [place] [address], [place] [address] Mar, [facility] [address] [id number] [address] [place] [address], [place] [address] Mar, [facility] [address] [id number] [address] [place] [address], [place] [address] Feb, [facility] [address] [id number] [address] [place] [address], [place] [address] Feb, [facility] [address] [id number] [address] [place] [address], [place] [address] Feb, [facility] [address] [id number] [address] [place] [address], [place] [address] Feb, [facility] [address] [id number] [address] [place] [address], [place] [address] Jan, [facility] [address] [id number] [address] [place] [address], [place] [address] Jan, [facility] [address] [id number] [address] [place] [address], [place] [address] 18 Jan, 2011 [facility] [address] [id number] [address] [place] [address], [place] [address] 18 Jan, 2011 [facility] [address] [id number] [address] [place] [address], [place] [address] 17 Nov, 2010 [facility] [address] [id number] [address] [place] [address], [place] [address] 03 Mar, 2010 [facility] [address] [id number] [address] [place] [address], [place] [address] 02 Mar, 2010 [facility] [address] [id number] [address] [place] [address], [place] [address] 30 Feb, 2010 [facility] [address] [id number] [address] [place] [address], [place] [address] 15 Feb, 2010 [facility] [address] [id number] [address] [place] [address], [place] [address] Jan, [facility] [address] [id number] [address] [place] [address], [place] [address] Jan, [facility] [address] [id number] [address] [place] [address], [place] [address] Sep, [facility] [address] [id number] [address] [place] [address], [place] [address] 16 May, 2009 [facility] [address] [id number] [address] [place] [address], [place] [id number] Apr, [facility] [address] [id number] [address] [place] [address], [place] [id number] Mar, [facility] [address] [id number] [address] [place] [address], [place] [id number] 15 Feb, 2009 [facility] [address] [id number] [address] [place] [address], [place] [id number] 10 Feb, 2009 [facility] [address] [id number] [address] [place] [address], [place] [id number] Feb, [facility], [place] [address] [facility] [id number] [address] [place] [id number] Jan, [facility], [place] [address] [facility] [id number] [address] [place] [id number] Jan, [facility], [place] [address] [facility] [id number] [address] [place] [phone] Jan, [facility], [place] [address] [facility] [id number] [address] [place] [id number] Jan, [facility], [place] [address] [facility] [id number] [address] [place] [phone] August, IMMUNIZATIONS No Known Immunizations SOCIAL HISTORY Never Assessed REASON FOR VISIT LVM PLAN OF CARE VITAL SIGNS MEDICATIONS Unknown [...] age 6 Hospitalization History surgery Hospitalization History [facility], tom webber treatment few times for BH
--- OUTSIDE RECORDS SUMMARY | 2019-09-29 10:33 | XMS REPORT ---
Author Author Cameron ALANIZ [facility] Address [address] [place] [address] Care Team Providers Care Talent Rep Name Role Phone JEET ALANIZ Unavailable PROBLEMS Type Condition ICD9-CM Code DIC57-VV Code Onset Dates Condition S tatus SNOMED Code Problem Open-angle glaucoma of both eyes, unspecified glaucoma stage, unspecified open-angle glaucoma type H40.10X0 Acti ve 17584191 Problem Adjustment disorder, unspecified type F43.20 Active 04998118 Problem Obstructive sleep apnea G47.33 Active 21160766 Problem Hypertensive retinopathy of both eyes H35.033 Active 0952601 Problem Type 2 diabetes mellitus with complication E11.8 Active 53338581 Problem Essential hypertension I10 Active 37412801 Problem Depression F32.9 Active 37825134 Problem Intermittent explosive disorder F63.81 Active 07466148 Problem Intermittent explosive disorder in adult F63.81 Active 99114249 Problem Bipolar disorder, unspecified F31.9 Active 94773298 Problem Mild intellectual disability F70 A ctive 01797652 Problem Other specified urinary incontinence N39.498 Active 178924222 Problem Bipolar disorder, in partial remission, most rec ent episode manic F31.73 Active 83508733 Problem 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 Active 38349155 Problem Type 2 diabetes mellitus wit h diabetic neuropathy, unspecified whether ocean transportation intermediary insulin use E11.40 Active 396326 635640370 Problem Diabetes E11.9 Active 98037312 Problem Reactive airway disease, unspecified asthma justin rity, uncomplicated J45.909 Active 568716483679 Problem Reactive airway disease, mild intermittent, uncomplicated J45.20 Active 793229358 Problem Gastroesophageal reflux disease without esophagitis K21.9 Active 768146134 Problem Other diabetic neurological complication associated with type 2 diabetes mellitus E11.49 Active 212350075 Problem Neuropathy G62.9 Active 197231219 ALLERGIES No Information ENCOUNTERS Encounter Location Date Diagnosis [facility] [address] [facility] [id number] [address] [place] [phone] Oct, [facility] [address] [facility] [id number] [address] [place] [phone] August, [facility] [address] [facility] [id number] [address] [place] [phone] Jul, Type 2 diabetes mellitus wit h diabetic neuropathy, unspecified whether halfway insulin use E11.40 and Colon cancer screening Z12.11 [facility] [address] [facility] [id number] [address] [place] [id number] 10 Jul, 2019 Type 2 diabetes mellitus wit h diabetic neuropathy, unspecified whether halfway insulin use E11.40 and Tinea pedis, unspecified laterality B35.3 [facility] [address] [facility] [id number] [address] [place] [phone] 10 Jun, 2019 [facility] [address] [facility] [id number] [address] [place] [phone] Jun, [facility] [address] [facility] [id number] [address] [place] [id number] 04 Jun, 2019 Dysuria R30.0 [facility] [address] [facility] [id number] [address] [place] [phone] 02 Jun, 2019 [facility] [address] [facility] [id number] [address] [place] [phone] 20 May, 2019 Influenza J11.1 [facility] [address] [place] [id number] [address] [place] [phone] 13 May, 2019 Intermittent explosive disor salvatore in adult F63.81 [facility] [address] [facility] [id number] [address] [place] [phone] 12 May, 2019 [facility] [address] [facility] [id number] [address] [place] [phone] Apr, Intermittent explosive disor salvatore in adult F63.81 ; Bipolar disorder, unspecified F31.9 and Mild intellectual disability F70 [facility] [id number] [place] [phone] Apr, Oral health maintenance stat us requiring routine preventive dental care K08.9 [facility] [address] [id number] [address] [place] [phone] 20 Apr, 2019 Type 2 diabetes mellitus wit h complication E11.8 ; History of test for hearing Z92.89 ; Colon cancer screening Z12.11 ; Other specified urinary incontinence N39.498 and Impacted cerumen, right ear H61.21 [facility] [address] [id number] [address] [place] [phone] Apr, Onychomycosis B35.1 ; Other diabetic neurological complication associated with type 2 diabetes mellitus E11.49 and Tinea pedis of both feet B35.3 [facility] [address] [id number] [address] [place] [phone] Feb, [facility] [address] [id number] [address] [place] [phone] Jan, [facility] [address] [id number] [address] [place] [phone] Jan, [facility] [address] [id number] [address] [place] [phone] Jan, [facility] [address] [id number] [address] [place] [phone] Jan, [facility] [address] [id number] [address] [place] [phone] Jan, [facility] [address] [id number] [address] [place] [id number] Jan, [facility] [address] [id number] [address] [place] [phone] Jan, [facility] [address] [id number] [address] [place] [phone] Jan, Anemia D64.9 [facility] [id number] [place] [phone] 04 Jan, 2019 Dental examination Z01.20 an d Oral health maintenance status requiring routine preventive dental care K08.9 [place] [address] [place] [id number] [address] [place] [phone] Jan, Onychomycosis B35.1 and Othe r diabetic neurological complication associated with type 2 diabetes mellitus E11.49 [place] [address] [place] [id number] [address] [place] [phone] Jan, Anemia D64.9 [place] [address] [place] [id number] [address] [place] [phone] Jan, [place] [address] [place] [id number] [address] [place] [phone] Dec, Urinary tract infection with out hematuria, site unspecified N39.0 [place] [address] [place] [id number] [address] [place] [phone] Dec, Type 2 diabetes mellitus wit h complication E11.8 ; Urinary tract infection without hematuria, site unspecified N39.0 ; Impacted cerumen of both ears H61.23 ; Encounter for immunization Z23 and Hyponatremia E87.1 [place] [address] [place] [id number] [address] [place] [phone] Dec, Intermittent explosive disor salvatore in adult F63.81 ; Dysuria R30.0 ; Type 2 diabetes mellitus with complication E11.8 ; Bipolar disorder, unspecified F31.9 and Mild intellectual disability F70 [place] [address] [place] [id number] [address] [place] [phone] Dec, Dysuria R30.0 [place] [address] [place] [id number] [address] [place] [id number] Dec, Intermittent explosive disor salvatore in adult F63.81 ; Bipolar disorder, unspecified F31.9 and Mild intellectual disability F70 [place] [address] [place] [id number] [address] [place] [phone] Nov, [facility] [address] [id number] [address] [place] [phone] Oct, [facility] [address] [facility] [id number] [place] [phone] Oct, Oral health maintenance stat us requiring routine preventive dental care K08.9 [facility] [address] [facility] [id number] [address] [place] [id number] August, Intermittent explosive disor salvatore in adult F63.81 ; Bipolar disorder, unspecified F31.9 and Mild intellectual disability F70 [facility] [address] [facility] [id number] [address] [place] [id number] August, Dental caries K02.9 [facility] [address] [facility] [id number] [address] [place] [id number] Jul, Onychomycosis B35.1 ; Other diabetic neurological complication associated with type 2 diabetes mellitus E11.49 and Tinea pedis of both feet B35.3 [facility] [address] [id number] [address] [place] [address] [id number] Jul, Caries K02.9 [facility] [address] [facility] [id number] [address] [place] [phone] Jul, Type 2 diabetes mellitus wit h complication E11.8 ; Tobacco abuse Z72.0 and Bipolar disorder, unspecified F31.9 [facility] [address] [facility] [id number] [address] [place] [phone] Jun, [facility] [address] [id number] [address] [place] [address] [phone] Jun, Dental examination Z01.20 an d Oral health maintenance status requiring routine preventive dental care K08.9 [facility] [address] [facility] [id number] [address] [place] [phone] May, Bilateral impacted cerumen H 61.23 [facility] [address] [facility] [id number] [address] [place] [phone] Apr, Bipolar disorder, unspecifie d F31.9 ; Intermittent explosive disorder in adult F63.81 ; Type 2 diabetes mellitus with complication E11.8 ; Tobacco abuse Z72.0 and Colon cancer screening Z12.11 [facility] [address] [place] [phone] Apr, Onychomycosis B35.1 and Othe r diabetic neurological complication associated with type 2 diabetes mellitus E11.49 [facility] [address] [place] [id number] [address] [place] [phone] Apr, Intermittent explosive disor salvatore in adult F63.81 ; Bipolar disorder, unspecified F31.9 and Mild intellectual disability F70 [place] [address] [place] [id number] [address] [place] [phone] 03 Mar, 2018 Diabetes E11.9 [facility] [address] [place] [id number] [address] [place] [phone] Jan, Encounter for immunization Z 23 [facility] [address] [place] [phone] Jan, Tinea pedis of both feet B35 .3 ; Other diabetic neurological complication associated with type 2 diabetes mellitus E11.49 and Onychomycosis B35.1 [facility] [address] [place] [id number] [address] [place] [phone] Nov, Type 2 diabetes mellitus wit h complication E11.8 [place] [address] [place] [id number] Nov, [facility] [address] [place] [id number] [address] [place] [phone] Oct, Intermittent explosive disor salvatore in adult F63.81 ; Bipolar disorder, unspecified F31.9 and Mild intellectual disability F70 [facility] [address] [place] [id number] [address] [place] [phone] Oct, [facility] [address] [facility] [id number] [address] [place] [address] [id number] Oct, Dental examination Z01.20 [facility] [address] [facility] [id number] [address] [place] [phone] 06 Oct, 2017 Onychomycosis B35.1 and Othe r diabetic neurological complication associated with type 2 diabetes mellitus E11.49 [facility] [address] [place] [id number] [address] [place] [phone] Sep, Type 2 diabetes mellitus wit h complication E11.8 and Colon cancer screening Z12.11 [facility] [address] [place] [id number] [address] [place] [id number] 18 Sep, 2017 Type 2 diabetes mellitus wit h complication E11.8 ; Colon cancer screening Z12.11 and Neuropathy G62.9 [place] [address] [place] [id number] [address] [place] [phone] August, Diabetes E11.9 [facility] [address] [place] [id number] [address] [place] [address] [id number] Jul, Dental examination Z01.20 [place] [id number] [place] [phone] 27 May, 2017 Mild intellectual disability F70 [place] [address] [place] [id number] [address] [place] [phone] 07 May, 2017 Mild intellectual disability F70 ; High risk medication use Z79.899 ; Intermittent explosive disorder in adult F63.81 and Bipolar disorder, unspecified F31.9 [place] [address] [place] [phone] May, [place] [address] [place] [id number] [address] [place] [id number] May, [place] [address] [place] [id number] [address] [place] [phone] Apr, Type 2 diabetes mellitus wit h complication E11.8 ; Mild intellectual disability F70 ; Gastroesophageal reflux disease without esophagitis K21.9 ; Reactive airway disease, mild intermittent, uncomplicated J45.20 and Tobacco abuse Z72.0 [place] [address] [place] [phone] Apr, High risk medication use Z79 .899 ; Mild intellectual disability F70 ; Intermittent explosive disorder in adult F63.81 and Bipolar disorder, unspecified F31.9 [facility] [address] [id number] [address] [place] [address] [id number] Mar, Encounter for dental exam an d cleaning w/o abnormal findings Z01.20 [facility] [address] [id number] [address] [place] [address] [id number] Mar, Dental examination Z01.20 [facility] [address] [id number] [address] [place] [id number] 12 Jan, 2017 [facility] [address] [id number] [address] [place] [phone] Jan, [facility] [address] [id number] [address] [place] [phone] Jan, Mild intellectual disability F70 ; Bipolar disorder, unspecified F31.9 and Intermittent explosive disorder in adult F63.81 [facility] [address] [id number] [address] [place] [phone] 02 Jan, 2017 Diabetes E11.9 [facility] [address] [id number] [address] [place] [address] [id number] Dec, Encounter for dental examina tion and cleaning without abnormal findings Z01.20 [facility] [address] [id number] [address] [place] [id number] 12 Dec, 2016 Bipolar disorder, unspecifie d F31.9 ; Intermittent explosive disorder in adult F63.81 and Mild intellectual disability F70 [facility] [address] [id number] [address] [place] [phone] Nov, Diabetes E11.9 [facility] [address] [id number] [address] [place] [phone] Nov, [facility] [address] [id number] [address] [place] [phone] 14 Nov, 2016 Diabetes E11.9 and Colon can cer screening Z12.11 [facility] [address] [id number] [id number] 21 Sep, 2016 Dental examination Z01.20 [facility] [address] [id number] [address] [place] [address] [id number] 21 Sep, 2016 Encounter for dental examina tion and cleaning without abnormal findings Z01.20 [facility] [address] [id number] [address] [place] [id number] 13 Sep, 2016 Bipolar disorder, unspecifie d F31.9 [facility] [address] [id number] [address] [place] [phone] 12 Sep, 2016 Bipolar disorder, unspecifie d F31.9 [facility] [address] [facility] [id number] [address] [place] [phone] Jul, [facility] [address] [facility] [id number] [address] [place] [phone] 13 Jul, 2016 Type 2 diabetes mellitus wit h complication E11.8 [facility] [address] [id number] [address] [place] [address] [id number] 15 Jun, 2016 Encounter for dental examina tion and cleaning without abnormal findings Z01.[address] [id number] [id number] 15 Jun, 2016 Dental examination Z01.20 [facility] [address] [facility] [id number] [address] [place] [phone] 18 Apr, 2016 Sports physical Z02.5 [facility] [address] [facility] [id number] [address] [place] [phone] 14 Mar, 2016 Bipolar disorder, in partial remission, most recent episode manic F31.73 and Intermittent explosive disorder in adult F63.81 [facility] [address] [id number] [address] [place] [id number] 08 Mar, 2016 [facility] [address] [facility] [id number] [address] [place] [phone] Mar, Diabetes E11.9 [facility] [address] [id number] [address] [place] [address] [id number] Feb, Encounter for dental examina tion and cleaning without abnormal findings Z01.20 [facility] [address] [id number] [address] [place] [phone] 22 Dec, 2015 Nocturnal hypoxemia G47.34 a nd Encounter for immunization Z23 [facility] [address] [id number] [address] [place] [phone] 15 Dec, 2015 [facility] [address] [facility] [id number] [address] [place] [phone] Dec, [facility] [address] [facility] [id number] [address] [place] [phone] Dec, Bipolar disorder, unspecifie d F31.9 [facility] [address] [facility] [id number] [place] [address] [id number] Oct, Encounter for dental examina tion and cleaning without abnormal findings Z01.20 [place] [address] [facility] [id number] [place] [address] [id number] Oct, Dental examination Z01.20 [facility] [address] [facility] [id number] [address] [place] [phone] Oct, Diabetes E11.9 [facility] [address] [facility] [id number] [address] [place] [phone] Oct, Diabetes E11.9 ; Reactive ai rway disease, mild intermittent, uncomplicated J45.20 and Tobacco abuse Z72.0 [facility] [address] [facility] [id number] [address] [place] [phone] Sep, Bipolar disorder, unspecifie d F31.9 and Depression F32.9 [facility] [address] [facility] [id number] [address] [place] [phone] Sep, [facility] [address] [facility] [id number] [address] [place] [phone] August, Tinea pedis of both feet B35 .3 and DM w/o complication type II, uncontrolled E11.65 [place] [address] [phone] Jul, [place] [address] [address] Jul, [place] [address] [address] Jul, Obstructive sleep apnea G47. 33 [place] [address] [address] Jun, Diabetes E11.9 [place] [address] [address] Jun, [place] [address] [address] Jun, [place] [address] [address] Jun, Bipolar disorder, unspecifie d F31.9 and Mental retardation F79 [place] [address] [phone] Apr, [place] [address] [address] Feb, Diabetes E11.9 ; Encounter f or immunization Z23 ; Cough R05 and Nicotine abuse Z72.0 [place] [address] [id number] Jan, Bipolar disorder, unspecifie d F31.9 and Diabetes mellitus without mention of complication, type II or unspecified type, uncontrolled 250.02 [place] [address] [phone] Jan, [place] [address] [address] Dec, Reactive airway disease 493. 90 and Enuresis 788.30 [facility] [address] [id number] [address] [place] [phone] Dec, [facility] [address] [facility] [id number] [address] [place] [phone] Nov, [facility] [address] [facility] [id number] [address] [place] [phone] Nov, [facility] [address] [facility] [id number] [address] [place] [phone] Nov, Annual physical exam V70.0 ; Urinary incontinence 788.30 ; Diabetes 250.00 and Hypertension 401.9 [facility] [address] [facility] [id number] [address] [place] [phone] Oct, Diabetes mellitus without me ntion of complication, type II or unspecified type, uncontrolled 250.02 [facility] [address] [facility] [id number] [address] [place] [phone] Oct, Diabetes mellitus without me ntion of complication, type II or unspecified type, uncontrolled 250.02 [facility] [address] [facility] [id number] [address] [place] [id number] Oct, Diabetes mellitus without me ntion of complication, type II or unspecified type, uncontrolled 250.02 [facility] [address] [place] [id number] [address] [place] [phone] Oct, [facility] [address] [facility] [id number] [address] [place] [phone] Oct, [facility] [address] [facility] [id number] [address] [place] [phone] Oct, Bipolar disorder, unspecifie d 296.80 [facility] [address] [id number] [address] [place] [address] [id number] Sep, Dental examination V72.2 [facility] [address] [facility] [id number] [address] [place] [phone] August, [facility] [address] [place] [id number] [address] [place] [address] [id number] August, Dental examination V72.2 [facility] [address] [id number] [address] [place] [phone] August, [facility] [address] [id number] [address] [place] [address], [place] [phone] 14 Jul, 2014 [facility] [address] [id number] [address] [place] [phone] Jul, [facility] [address] [id number] [address] [place] [address], [place] [phone] 17 Jun, 2014 [facility] [address] [id number] [address] [place] [address], [place] [address] Jun, [facility] [address] [id number] [address] [place] [phone] Jun, [facility] [address] [id number] [address] [place] [phone] Jun, [facility] [address] [id number] [address] [place] [phone] May, [facility] [facility] [address] [id number] [address] [place] [id number] 23 May, 2014 [facility] [address] [id number] [address] [place] [id number] 16 May, 2014 [facility] [address] [id number] [address] [place] [id number] 16 May, 2014 [facility] [address] [id number] [address] [place] [address] May, [facility] [address] [id number] [address] [place] [id number] 16 May, 2014 [facility] [address] [id number] [address] [place] [id number] 16 May, 2014 [facility] [address] [id number] [address] [place] [id number] May, 2014 [facility] [address] [id number] [address] [place] [address], [place] [address] May, 2014 [facility] [address] [id number] [address] [place] [address], [place] [address] May, 2014 [facility] [address] [id number] [address] [place] [address], [place] [address] May, 2014 [facility] [address] [id number] [address] [place] [address], [place] [address] May, 2014 [facility] [address] [id number] [address] [place] [address], [place] [address] May, 2014 [facility] [address] [id number] [address] [place] [address], [place] [address] May, 2014 [facility] [address] [id number] [address] [place] [address], [place] [address] May, 2014 [facility] [address] [id number] [address] [place] [address], [place] [address] Apr, [facility] [address] [id number] [address] [place] [address], [place] [address] Apr, [facility] [address] [id number] [address] [place] [address], [place] [address] Apr, [facility] [address] [id number] [address] [place] [address], [place] [address] Apr, [facility] [address] [id number] [address] [place] [address] Apr, [facility] [address] [id number] [address] [place] [id number] Apr, [facility] [address] [id number] [address] [place] [address], [place] [address] Apr, [facility] [address] [id number] [address] [place] [phone] Apr, [facility] [address] [id number] [address] [place] [address], [place] [address] Apr, [facility] [address] [id number] [address] [place] [address], [place] [address] Apr, [facility] [address] [id number] [address] [place] [address], [place] [address] Apr, [facility] [address] [id number] [address] [place] [address], [place] [address] Apr, [facility] [address] [id number] [address] [place] [address], [place] [address] Mar, [facility] [address] [id number] [address] [place] [address], [place] [address] Mar, [facility] [address] [id number] [address] [place] [address], [place] [address] Mar, [facility] [address] [id number] [address] [place] [address], [place] [address] Mar, [facility] [address] [id number] [address] [place] [address], [place] [address] Mar, [facility] [address] [id number] [address] [place] [address], [place] [address] Mar, [facility] [address] [id number] [address] [place] [address], [place] [address] Feb, [facility] [address] [id number] [address] [place] [address], [place] [address] Feb, [facility] [address] [id number] [address] [place] [address], [place] [address] Feb, [facility] [address] [id number] [address] [place] [address], [place] [address] 13 Feb, 2014 [facility] [address] [id number] [address] [place] [address], [place] [address] 14 Jan, 2014 [facility] [address] [id number] [address] [place] [address], [place] [address] 14 Jan, 2014 [facility] [address] [id number] [address] [place] [address], [place] [address] 14 Jan, 2014 [facility] [address] [id number] [address] [place] [address], [place] [address] Jan, [facility] [address] [id number] [address] [place] [address], [place] [address] Dec, [facility] [address] [id number] [address] [place] [address], [place] [address] Dec, [facility] [address] [id number] [address] [place] [address], [place] [address] 15 Dec, 2013 [facility] [address] [id number] [address] [place] [address], [place] [address] Dec, [facility] [address] [id number] [address] [place] [address], [place] [address] Nov, [facility] [address] [id number] [address] [place] [address], [place] [address] Nov, [facility] [address] [id number] [address] [place] [address], [place] [address] Nov, [facility] [address] [id number] [address] [place] [address], [place] [address] Nov, [facility] [address] [id number] [address] [place] [address], [place] [address] Nov, [facility] [address] [id number] [address] [place] [address], [place] [address] Nov, [facility] [address] [id number] [address] [place] [address], [place] [address] Nov, [facility] [address] [id number] [address] [place] [address], [place] [address] Oct, [facility] [address] [id number] [address] [place] [address], [place] [address] Oct, [facility] [address] [id number] [facility] [place] [address] Oct, [facility] [address] [id number] [address] [place] [address], [place] [address] Oct, [facility] [address] [id number] [address] [place] [address], [place] [address] Oct, [facility] [address] [id number] [address] [place] [address], [place] [address] Oct, [facility] [address] [id number] [address] [place] [address], [place] [address] Oct, [facility] [address] [id number] [address] [place] [address], [place] [address] Sep, [facility] [address] [id number] [address] [place] [address], [place] [address] Sep, [facility] [address] [id number] [address] [place] [address], [place] [address] Sep, [facility] [address] [id number] [address] [place] [address], [place] [address] Sep, [facility] [address] [id number] [address] [place] [address], [place] [address] Sep, [facility] [address] [id number] [address] [place] [address], [place] [address] Jul, [facility] [address] [id number] [address] [place] [address], [place] [address] Jul, [facility] [address] [id number] [address] [place] [address], [place] [address] Jul, [facility] [address] [id number] [address] [place] [address], [place] [address] Jul, [facility] [address] [id number] [address] [place] [address], [place] [address] Jul, [facility] [address] [id number] [address] [place] [address], [place] [address] Jul, [facility] [address] [id number] [facility] [place] [address] Jul, [facility] [address] [id number] [address] [place] [address], [place] [address] Jul, [facility] [address] [id number] [address] [place] [address], [place] [address] Jul, [facility] [address] [id number] [address] [place] [address], [place] [address] Jul, [facility] [address] [id number] [address] [place] [address], [place] [address] Jul, [facility] [address] [id number] [address] [place] [address], [place] [address] Jul, [facility] [address] [id number] [address] [place] [address], [place] [address] Jun, [facility] [address] [id number] [address] [place] [address], [place] [address] Jun, [facility] [address] [id number] [address] [place] [address], [place] [address] Jun, [facility] [address] [id number] [address] [place] [address], [place] [address] Jun, [facility] [address] [id number] [address] [place] [address], [place] [address] Jun, [facility] [address] [id number] [address] [place] [address], [place] [address] Jun, [facility] [address] [id number] [address] [place] [address], [place] [address] Jun, [facility] [address] [id number] [address] [place] [address], [place] [address] Jun, [facility] [address] [id number] [address] [place] [address], [place] [address] May, [facility] [address] [id number] [address] [place] [address] May, [facility] [address] [id number] [address] [place] [address], [place] [address] May, [facility] [address] [id number] [address] [place] [address], [place] [address] May, [facility] [address] [id number] [address] [place] [address], [place] [address] May, [facility] [address] [id number] [address] [place] [address], [place] [address] May, [facility] [address] [id number] [address] [place] [address], [place] [address] May, [facility] [address] [id number] [address] [place] [address], [place] [address] May, [facility] [address] [id number] [address] [place] [address], [place] [address] Apr, [facility] [address] [id number] [address] [place] [address], [place] [address] Apr, [facility] [address] [id number] [address] [place] [address], [place] [address] Apr, [facility] [address] [id number] [address] [place] [address], [place] [address] Apr, [facility] [address] [id number] [address] [place] [address], [place] [address] Mar, [facility] [address] [id number] [address] [place] [address], [place] [address] Mar, [facility] [address] [id number] [address] [place] [address], [place] [address] Mar, [facility] [address] [id number] [address] [place] [address], [place] [address] Feb, [facility] [address] [id number] [address] [place] [address], [place] [address] Feb, [facility] [address] [id number] [address] [place] [address], [place] [address] Feb, [facility] [address] [id number] [address] [place] [address], [place] [address] Feb, [facility] [address] [id number] [address] [place] [address], [place] [address] Feb, [facility] [address] [id number] [address] [place] [address], [place] [address] Feb, [facility] [address] [id number] [address] [place] [address], [place] [address] Jan, [facility] [address] [id number] [address] [place] [address], [place] [address] Jan, [facility] [address] [id number] [address] [place] [address], [place] [address] Jan, [facility] [address] [id number] [address] [place] [address] Jan, [facility] [address] [id number] [address] [place] [address], [place] [address] Jan, [facility] [address] [id number] [address] [place] [address] Jan, [facility] [address] [id number] [address] [place] [address] Jan, [facility] [address] [id number] [address] [place] [address] 25 Dec, 2012 [facility] [address] [id number] [address] [place] [address] [address] 16 Sep2012 [facility] [address] [id number] [address] [place] [address] 10 Sep2012 [facility] [address] [id number] [address] [place] [address] 05 Sep2012 [facility] [address] [id number] [address] [place] [address] Nov, [facility] [address] [id number] [address] [place] [address], [place] [address] Nov, [facility] [address] [id number] [address] [place] [address], [place] [address] Nov, [facility] [address] [id number] [address] [place] [address], [place] [address] Nov, [facility] [address] [id number] [address] [place] [address], [place] [address] Nov, [facility] [address] [id number] [address] [place] [address], [place] [address] Nov, [facility] [address] [id number] [address] [place] [address], [place] [address] Nov, [facility] [address] [id number] [address] [place] [address], [place] [address] Oct, [facility] [address] [id number] [address] [place] [address], [place] [address] Oct, [facility] [address] [id number] [address] [place] [address], [place] [address] Oct, [facility] [address] [id number] [address] [place] [address], [place] [address] Oct, [facility] [address] [id number] [address] [place] [address], [place] [address] Oct, [facility] [address] [id number] [address] [place] [address], [place] [address] Oct, [facility] [address] [id number] [address] [place] [address], [place] [address] Oct, [facility] [address] [id number] [address] [place] [address], [place] [address] Oct, [facility] [address] [id number] [address] [place] [address], [place] [address] Sep, [facility] [address] [id number] [place] [id number] August, [facility] [address] [id number] [address] [place] [address], [place] [address] August, [facility] [address] [id number] [address] [place] [address], [place] [address] Jul, [facility] [address] [id number] [address] [place] [address], [place] [address] Jul, [facility] [address] [id number] [address] [place] [address], [place] [address] Jul, [facility] [address] [id number] [address] [place] [address], [place] [address] Jul, [facility] [address] [id number] [address] [place] [address], [place] [address] Jul, [facility] [address] [id number] [address] [place] [address], [place] [address] 17 Jul, 2012 [facility] [address] [id number] [address] [place] [address], [place] [address] 16 Jul, 2012 [facility] [address] [id number] [address] [place] [address], [place] [address] Jun, [facility] [address] [id number] [address] [place] [address], [place] [address] Jun, [facility] [address] [id number] [address] [place] [address], [place] [address] Jun, [facility] [address] [id number] [address] [place] [address], [place] [address] Jun, [facility] [address] [id number] [address] [place] [address], [place] [address] Jun, [facility] [address] [id number] [address] [place] [address], [place] [address] May, [facility] [address] [id number] [place] [address] 18 May, 2012 [facility] [address] [id number] [address] [place] [address], [place] [address] 04 May, 2012 [facility] [address] [id number] [address] [place] [address], [place] [address] 15 Apr, 2012 [facility] [address] [id number] [address] [place] [address], [place] [id number] 14 Apr, 2012 [facility] [address] [id number] [address] [place] [address], [place] [id number] 07 Apr, 2012 [facility] [address] [id number] [address] [place] [address], [place] [id number] Mar, [facility] [address] [id number] [address] [place] [address], [place] [id number] 31 Mar, 2012 [facility] [address] [id number] [address] [place] [address], [place] [id number] Mar, [facility] [address] [id number] [address] [place] [address], [place] [id number] Mar, [facility] [address] [id number] [address] [place] [address], [place] [address] Mar, [facility] [address] [id number] [address] [place] [address], [place] [id number] Mar, [facility] [address] [id number] [address] [place] [address], [place] [id number] Feb, [facility] [address] [id number] [address] [place] [id number] Feb, [facility] [address] [id number] [address] [place] [address], [place] [id number] Jan, [facility] [address] [id number] [address] [place] [address], [place] [id number] Jan, [facility] [address] [id number] [address] [place] [address], [place] [id number] 25 Dec, 2011 [facility] [address] [id number] [address] [place] [address], [place] [id number] Nov, [facility] [address] [id number] [address] [place] [address], [place] [id number] Nov, [facility] [address] [id number] [address] [place] [address], [place] [address] Nov, [facility] [address] [id number] [address] [place] [address], [place] [id number] Nov, [facility] [address] [id number] [address] [place] [address], [place] [id number] Oct, [facility] [address] [id number] [address] [place] [address], [place] [address] Oct, [facility] [address] [id number] [address] [place] [address], [place] [id number] Oct, [facility] [address] [id number] [address] [place] [address], [place] [id number] Sep, [facility] [address] [id number] [address] [place] [address], [place] [id number] Sep, [facility] [address] [id number] [address] [place] [address], [place] [address] Sep, [facility] [address] [id number] [address] [place] [address], [place] [address] August, [facility] [address] [id number] [address] [place] [address], [place] [id number] August, [facility] [address] [id number] [address] [place] [address], [place] [id number] Jul, [facility] [address] [id number] [address] [place] [address], [place] [id number] 24 Jul, 2011 [facility] [address] [id number] [address] [place] [address], [place] [address] Jul, [facility] [address] [id number] [address] [place] [address], [place] [id number] Jul, [facility] [address] [id number] [address] [place] [address], [place] [id number] Jun, [facility] [address] [id number] [address] [place] [address], [place] [address] May, [facility] [address] [id number] [address] [place] [address], [place] [id number] Apr, [facility] [address] [id number] [address] [place] [address], [place] [address] Apr, [facility] [address] [id number] [address] [place] [address], [place] [id number] Apr, [facility] [address] [id number] [address] [place] [address], [place] [address] Apr, [facility] [address] [id number] [address] [place] [address], [place] [address] Apr, [facility] [address] [id number] [address] [place] [address], [place] [address] Apr, [facility] [address] [id number] [address] [place] [address], [place] [id number] Mar, [facility] [address] [id number] [address] [place] [address], [place] [address] Mar, [facility] [address] [id number] [address] [place] [address], [place] [address] Feb, [facility] [address] [id number] [address] [place] [id number] Feb, [facility] [address] [id number] [address] [place] [address], [place] [id number] Feb, [facility] [address] [id number] [address] [place] [address], [place] [id number] 09 Feb, 2011 [facility] [address] [id number] [address] [place] [address], [place] [address] Jan, [facility] [address] [id number] [address] [place] [address], [place] [id number] 18 Jan, 2011 [facility] [address] [id number] [address] [place] [address], [place] [id number] 18 Jan, 2011 [facility] [address] [id number] [address] [place] [address], [place] [id number] 18 Jan, 2011 [facility] [address] [id number] [address] [place] [address], [place] [id number] 17 Nov, 2010 [facility] [address] [id number] [address] [place] [address], [place] [id number] 03 Mar, 2010 [facility] [facility] [address] [id number] [address] [place] [address], [place] [id number] Mar, [facility] [address] [id number] [address] [place] [address], [place] [id number] 30 Feb, 2010 [facility] [address] [id number] [address] [place] [address], [place] [id number] 15 Feb, 2010 [facility] [address] [id number] [address] [place] [address], [place] [id number] Jan, [facility] [address] [id number] [address] [place] [address], [place] [id number] Jan, [facility] [address] [id number] [address] [place] [address], [place] [id number] Sep, [facility] [address] [id number] [address] [place] [address], [place] [id number] 16 May, 2009 [facility] [address] [id number] [address] [place] [address], [place] [id number] Apr, [facility] [address] [id number] [address] [place] [address], [place] [id number] Mar, [facility] [address] [id number] [address] [place] [address], [place] [id number] 15 Feb, 2009 [facility] [address] [id number] [address] [place] [id number] Feb, [facility] [address] [facility] [id number] [address] [place] [id number] 10 Feb, 2009 [facility] [address] [facility] [id number] [address] [place] [id number] 22 Jan, 2009 [facility] [address] [facility] [id number] [address] [place] [id number] 13 Jan, 2009 [facility] [address] [facility] [id number] [address] [place] [id number] 13 Jan, 2009 [facility] [address] [facility] [id number] [address] [place] [id number] 11 Jan, 2009 [facility] [address] [facility] [id number] [address] [place] [id number] August, IMMUNIZATIONS No Known Immunizations SOCIAL HISTORY [...] age 6 Hospitalization History surgery Hospitalization History [facility] [place] [facility] few times for BH
--- OUTSIDE RECORDS SUMMARY | 2019-09-29 10:34 | XMS REPORT ---
Author Author Cameron ALANIZ [facility] Address [address] [place] [address] Care Team Providers Care Home Health Travel Ot Name Role Phone JEET ALANIZ Unavailable PROBLEMS Type Condition ICD9-CM Code ETR98-KE Code Onset Dates Condition S tatus SNOMED Code Problem Adjustment disorder, unspecified type F43.20 Active 37614195 Problem Reactive airway disease, unspecified asthma justin rity, uncomplicated J45.909 Active 479087985462 Problem Hypertensive retinopathy of both eyes H35.033 Active 9242175 Problem Open-angle glaucoma of both eyes, unspecified glaucoma stage, unspecified open-angle glaucoma type H40.10X0 Acti ve 47483332 Problem Essential hypertension I10 Active 11318937 Problem Obstructive sleep apnea G47.33 Active 56814314 Problem Intermittent explosive disorder F63.81 Active 05161635 Problem Type 2 diabetes mellitus with complication E11.8 Active 45579382 Problem Bipolar disorder, in partial remission, most rec ent episode manic F31.73 Active 55787527 Problem Intermittent explosive disorder in adult F63.81 Active 84659253 Problem Bipolar disorder, unspecified F31.9 Active 15824387 Problem Neuropathy G62.9 Active 576322287 Problem Diabetes E11.9 Active 51755412 Problem Other specified urinary incontinence N39.498 Active 953875444 Problem Depression F32.9 Active 90187911 Problem 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 Active 39231388 Problem Mild intellectual disability F70 A ctive 15905933 Problem Reactive airway disease, mild intermittent, uncomplicated J45.20 Active 544401411 Problem Gastroesophageal reflux disease without esophagitis K21.9 Active 363635033 Problem Other diabetic neurological complication associated with type 2 diabetes mellitus E11.49 Active 505411230 ALLERGIES No Information ENCOUNTERS Encounter Location Date Diagnosis [facility] [address] [facility] [id number] [address] [place] [address] August, [facility] [address] [facility] [id number] [address] [place] [id number] Jul, [facility] [address] [facility] [id number] [address] [place] [id number] Jul, [facility] [address] [facility] [id number] [address] [place] [phone] Jun, [facility] [address] [facility] [id number] [address] [place] [phone] Jun, [facility] [address] [facility] [id number] [address] [place] [address] Jun, Dysuria R30.0 [facility] [address] [facility] [id number] [address] [place] [id number] Jun, [facility] [address] [place] [id number] [address] [place] [address] May, Influenza J11.1 [facility] [address] [place] [id number] [address] [place] [id number] 13 May, 2019 Intermittent explosive disor salvatore in adult F63.81 [facility] [address] [place] [id number] [address] [place] [id number] May, [facility] [address] [place] [id number] [address] [place] [address] Apr, Intermittent explosive disor salvatore in adult F63.81 ; Bipolar disorder, unspecified F31.9 and Mild intellectual disability F70 [facility]RE[facility] [address] [facility] [id number] [place] [phone] Apr, Oral health maintenance stat us requiring routine preventive dental care K08.9 [facility] [address] [facility] [id number] [address] [place] [id number] Apr, Type 2 diabetes mellitus wit h complication E11.8 ; History of test for hearing Z92.89 ; Colon cancer screening Z12.11 ; Other specified urinary incontinence N39.498 and Impacted cerumen, right ear H61.21 [facility] [address] [id number] [address] [place] [id number] Apr, Onychomycosis B35.1 ; Other diabetic neurological complication associated with type 2 diabetes mellitus E11.49 and Tinea pedis of both feet B35.3 [facility] [address] [id number] [address] [place] [phone] Feb, [facility] [address] [id number] [address] [place] [id number] Jan, [facility] [address] [id number] [address] [place] [phone] Jan, [facility] [address] [id number] [address] [place] [phone] Jan, [facility] [address] [id number] [address] [place] [phone] Jan, [facility] [address] [id number] [address] [place] [phone] Jan, [facility] [address] [id number] [address] [place] [phone] Jan, [facility] [address] [id number] [address] [place] [phone] Jan, [facility] [address] [id number] [address] [place] [phone] Jan, Anemia D64.9 [facility] [id number] [place] [phone] Jan, Dental examination Z01.20 an d Oral health maintenance status requiring routine preventive dental care K08.9 [facility] [address] [id number] [address] [place] [phone] Jan, Onychomycosis B35.1 and Othe r diabetic neurological complication associated with type 2 diabetes mellitus E11.49 [facility] [address] [id number] [address] [place] [phone] Jan, Anemia D64.9 [facility] [address] [facility] [id number] [address] [place] [phone] Jan, [facility] [address] [facility] [id number] [address] [place] [phone] Dec, Urinary tract infection with out hematuria, site unspecified N39.0 [facility] [address] [facility] [id number] [address] [place] [phone] 30 Dec, 2018 Type 2 diabetes mellitus wit h complication E11.8 ; Urinary tract infection without hematuria, site unspecified N39.0 ; Impacted cerumen of both ears H61.23 ; Encounter for immunization Z23 and Hyponatremia E87.1 [facility] [address] [facility] [id number] [address] [place] [id number] Dec, Intermittent explosive disor salvatore in adult F63.81 ; Dysuria R30.0 ; Type 2 diabetes mellitus with complication E11.8 ; Bipolar disorder, unspecified F31.9 and Mild intellectual disability F70 [facility] [address] [facility] [id number] [address] [place] [phone] Dec, Dysuria R30.0 [facility] [address] [facility] [id number] [address] [place] [phone] Dec, Intermittent explosive disor salvatore in adult F63.81 ; Bipolar disorder, unspecified F31.9 and Mild intellectual disability F70 [facility] [address] [facility] [id number] [address] [place] [phone] Nov, [facility] [address] [facility] [id number] [address] [place] [phone] Oct, [facility]RE[facility] [id number] [place] [phone] Oct, Oral health maintenance stat us requiring routine preventive dental care K08.9 [facility] [address] [facility] [id number] [address] [place] [phone] August, Intermittent explosive disor salvatore in adult F63.81 ; Bipolar disorder, unspecified F31.9 and Mild intellectual disability F70 [facility] [address] [facility] [id number] [address] [place] [address] [id number] August, Dental caries K02.9 [facility] [address] [place] [id number] [address] [place] [address] Jul, Onychomycosis B35.1 ; Other diabetic neurological complication associated with type 2 diabetes mellitus E11.49 and Tinea pedis of both feet B35.3 [facility] [address] [facility] [id number] [address] [place] [address] [id number] Jul, Caries K02.9 [facility] [address] [address] Jul, Type 2 diabetes mellitus wit h complication E11.8 ; Tobacco abuse Z72.0 and Bipolar disorder, unspecified F31.9 [facility] [address] [place] [id number] [address] [place] [id number] Jun, [facility] [id number] [place] [address] [id number] Jun, Dental examination Z01.20 an d Oral health maintenance status requiring routine preventive dental care K08.9 [facility] [address] [place] [id number] [address] [place] [address] May, Bilateral impacted cerumen H 61.23 [facility] [address] [place] [id number] [address] [place] [address] Apr, Bipolar disorder, unspecifie d F31.9 ; Intermittent explosive disorder in adult F63.81 ; Type 2 diabetes mellitus with complication E11.8 ; Tobacco abuse Z72.0 and Colon cancer screening Z12.11 [facility] [address] [place] [id number] [address] [place] [address] Apr, Onychomycosis B35.1 and Othe r diabetic neurological complication associated with type 2 diabetes mellitus E11.49 [facility] [address] [place] [id number] [address] [place] [address] Apr, Intermittent explosive disor salvatore in adult F63.81 ; Bipolar disorder, unspecified F31.9 and Mild intellectual disability F70 [facility] [address] [facility] [id number] [address] [place] [phone] Mar, Diabetes E11.9 [facility] [address] [facility] [id number] [address] [place] [phone] 20 Jan, 2018 Encounter for immunization Z 23 [facility] [address] [facility] [id number] [address] [place] [address] 12 Jan, 2018 Tinea pedis of both feet B35 .3 ; Other diabetic neurological complication associated with type 2 diabetes mellitus E11.49 and Onychomycosis B35.1 [facility] [address] [facility] [id number] [address] [place] [phone] Nov, Type 2 diabetes mellitus wit h complication E11.8 [place] [address] [facility] [id number] [address] [place] [phone] Nov, [facility] [address] [facility] [id number] [address] [place] [phone] Oct, Intermittent explosive disor salvatore in adult F63.81 ; Bipolar disorder, unspecified F31.9 and Mild intellectual disability F70 [facility] [address] [facility] [id number] [address] [place] [phone] Oct, [facility] [address] [id number] [address] [place] [address] [id number] 11 Oct, 2017 Dental examination Z01.20 [facility] [address] [facility] [id number] [address] [place] [phone] Oct, Onychomycosis B35.1 and Othe r diabetic neurological complication associated with type 2 diabetes mellitus E11.49 [facility] [address] [facility] [id number] [address] [place] [phone] Sep, Type 2 diabetes mellitus wit h complication E11.8 and Colon cancer screening Z12.11 [facility] [address] [facility] [id number] [address] [place] [id number] Sep, Type 2 diabetes mellitus wit h complication E11.8 ; Colon cancer screening Z12.11 and Neuropathy G62.9 [facility] [address] [facility] [id number] [address] [place] [phone] August, Diabetes E11.9 [facility] [address] [id number] [address] [place] [address] [id number] Jul, Dental examination Z01.20 [facility] [address] [facility] [id number] [address] [place] [phone] 27 May, 2017 Mild intellectual disability F70 [place] [address] [address] May, Mild intellectual disability F70 ; High risk medication use Z79.899 ; Intermittent explosive disorder in adult F63.81 and Bipolar disorder, unspecified F31.9 [place] [address] [place] [address] May, [place] [address] [place] [id number] [address] [place] [address] May, [place] [address] [place] [id number] [address] [place] [address] Apr, Type 2 diabetes mellitus wit h complication E11.8 ; Mild intellectual disability F70 ; Gastroesophageal reflux disease without esophagitis K21.9 ; Reactive airway disease, mild intermittent, uncomplicated J45.20 and Tobacco abuse Z72.0 [place] [address] [facility] [id number] [address] [place] [id number] Apr, High risk medication use Z79 .899 ; Mild intellectual disability F70 ; Intermittent explosive disorder in adult F63.81 and Bipolar disorder, unspecified F31.9 [facility] [address] [place] [id number] [address] [place] [address] [id number] Mar, Encounter for dental exam an d cleaning w/o abnormal findings Z01.20 [facility] [address] [id number] [address] [place] [address] [id number] Mar, Dental examination Z01.20 [facility] [address] [id number] [address] [place] [id number] 12 Jan, 2017 [facility] [address] [id number] [address] [place] [phone] Jan, [facility] [address] [id number] [address] [place] [phone] Jan, Mild intellectual disability F70 ; Bipolar disorder, unspecified F31.9 and Intermittent explosive disorder in adult F63.81 [facility] [address] [id number] [address] [place] [phone] 02 Jan, 2017 Diabetes E11.9 [facility] [address] [id number] [address] [place] [address] [id number] 13 Dec, 2016 Encounter for dental examina tion and cleaning without abnormal findings Z01.20 [facility] [address] [id number] [address] [place] [id number] 12 Dec, 2016 Bipolar disorder, unspecifie d F31.9 ; Intermittent explosive disorder in adult F63.81 and Mild intellectual disability F70 [facility] [address] [id number] [address] [place] [address] Nov, Diabetes E11.9 [facility] [address] [facility] [id number] [address] [place] [phone] Nov, [facility] [address] [facility] [id number] [address] [place] [id number] Nov, Diabetes E11.9 and Colon can cer screening Z12.11 [facility] [place] [id number] [facility] [id number] [id number] Sep, Dental examination Z01.20 [facility] [address] [id number] [address] [place] [address] [id number] Sep, Encounter for dental examina tion and cleaning without abnormal findings Z01.20 [facility] [address] [id number] [address] [place] [id number] 13 Sep, 2016 Bipolar disorder, unspecifie d F31.9 [facility] [address] [facility] [id number] [address] [place] [id number] 12 Sep, 2016 Bipolar disorder, unspecifie d F31.9 [facility] [address] [facility] [id number] [address] [place] [phone] Jul, [facility] [address] [facility] [id number] [address] [place] [phone] Jul, Type 2 diabetes mellitus wit h complication E11.8 [facility] [address] [place] [id number] [address] [place] [address] [id number] 15 Jun, 2016 Encounter for dental examina tion and cleaning without abnormal findings Z01.20 [place] [id number] [facility] [id number] [place] [address] [id number] Jun, Dental examination Z01.20 [facility] [address] [facility] [id number] [address] [place] [address] Apr, Sports physical Z02.5 [place] [address] [place] [id number] [place] [phone] 14 Mar, 2016 Bipolar disorder, in partial remission, most recent episode manic F31.73 and Intermittent explosive disorder in adult F63.81 [facility] [address] [place] [id number] [address] [place] [address] 08 Mar, 2016 [facility] [address] [facility] [id number] [address] [place] [id number] 06 Mar, 2016 Diabetes E11.9 [facility] [address] [id number] [address] [place] [address] [id number] 03 Feb, 2016 Encounter for dental examina tion and cleaning without abnormal findings Z01.20 [facility] [address] [facility] [id number] [address] [place] [id number] 22 Dec, 2015 Nocturnal hypoxemia G47.34 a nd Encounter for immunization Z23 [facility] [address] [facility] [id number] [address] [place] [phone] 15 Dec, 2015 [facility] [address] [facility] [id number] [address] [place] [phone] 12 Dec, 2015 [facility] [address] [facility] [id number] [address] [place] [phone] 12 Dec, 2015 Bipolar disorder, unspecifie d F31.9 [facility] [address] [id number] [address] [place] [address] [id number] 13 Oct, 2015 Encounter for dental examina tion and cleaning without abnormal findings Z01.20 [place] [id number] [facility] [id number] [place] [address] [id number] 13 Oct, 2015 Dental examination Z01.20 [facility] [address] [place] [id number] [address] [place] [phone] 07 Oct, 2015 Diabetes E11.9 [facility] [address] [id number] 05 Oct, 2015 Diabetes E11.9 ; Reactive ai rway disease, mild intermittent, uncomplicated J45.20 and Tobacco abuse Z72.0 [facility] [address] [id number] 06 Sep, 2015 Bipolar disorder, unspecifie d F31.9 and Depression F32.9 [facility] [address] [address] Sep, [facility] [address] [address] August, Tinea pedis of both feet B35 .3 and DM w/o complication type II, uncontrolled E11.65 [facility] [address] [address] Jul, [facility] [address] [place] [id number] [place] [phone] Jul, [facility] [address] [address] Jul, Obstructive sleep apnea G47. 33 [facility] [address] [place] [id number] [address] [place] [address] Jun, Diabetes E11.9 [facility] [address] [address] Jun, [facility] [address] [address] Jun, [facility] [address] [address] Jun, Bipolar disorder, unspecifie d F31.9 and Mental retardation F79 [place] [address] [address] Apr, [place] [address] [address] Feb, Diabetes E11.9 ; Encounter f or immunization Z23 ; Cough R05 and Nicotine abuse Z72.0 [place] [address] [id number] Jan, Bipolar disorder, unspecifie d F31.9 and Diabetes mellitus without mention of complication, type II or unspecified type, uncontrolled 250.02 [place] [address] [address] Jan, [place] [address] [address] Dec, Reactive airway disease 493. 90 and Enuresis 788.30 [place] [address] [address] Dec, [place] [address] [address] Nov, [place] [address] [address] Nov, [place] [address] [address] Nov, Annual physical exam V70.0 ; Urinary incontinence 788.30 ; Diabetes 250.00 and Hypertension 401.9 [facility] [address] [id number] [address] [place] [id number] Oct, Diabetes mellitus without me ntion of complication, type II or unspecified type, uncontrolled 250.02 [facility] [address] [id number] [address] [place] [phone] Oct, Diabetes mellitus without me ntion of complication, type II or unspecified type, uncontrolled 250.02 [facility] [address] [id number] [address] [place] [id number] Oct, Diabetes mellitus without me ntion of complication, type II or unspecified type, uncontrolled 250.02 [facility] [address] [facility] [id number] [address] [place] [id number] Oct, [facility] [address] [id number] [address] [place] [phone] Oct, [facility] [address] [id number] [address] [place] [phone] Oct, Bipolar disorder, unspecifie d 296.80 [facility] [address] [id number] [address] [place] [address] [id number] Sep, Dental examination V72.2 [facility] [address] [id number] [address] [place] [id number] August, [facility] [address] [id number] [address] [place] [address] [id number] August, Dental examination V72.2 [facility] [address] [id number] [address] [place] [id number] August, [facility] [address] [id number] [address] [place] [id number] Jul, [facility] [address] [facility] [id number] [address] [place] [id number] Jul, [facility] [address] [id number] [address] [place] [address], [place] [id number] 17 Jun, 2014 [facility] [address] [id number] [address] [place] [address], [place] [id number] 17 Jun, 2014 [facility] [address] [id number] [address] [place] [address], [place] [id number] 17 Jun, 2014 [facility] [address] [id number] [address] [place] [address], [place] [id number] 17 Jun, 2014 [facility] [address] [id number] [address] [place] [address], [place] [id number] 23 May, 2014 [facility] [address] [id number] [address] [place] [address], [place] [id number] 23 May, 2014 [facility] [address] [id number] [address] [place] [address], [place] [address] 16 May, 2014 [facility] [address] [id number] [address] [place] [address], [place] [address] 16 May, 2014 [facility] [address] [id number] [address] [place] [address], [place] [address] 16 May, 2014 [facility] [address] [id number] [address] [place] [address], [place] [address] 16 May, 2014 [facility] [address] [id number] [address] [place] [address], [place] [address] 16 May, 2014 [facility] [address] [id number] [address] [place] [address], [place] [address] 16 May, 2014 [facility] [address] [id number] [address] [place] [address], [place] [address] 16 May, 2014 [facility] [address] [id number] [address] [place] [address], [place] [address] 16 May, 2014 [facility] [address] [id number] [address] [place] [address], [place] [address] 16 May, 2014 [facility] [address] [id number] [address] [place] [address], [place] [address] 16 May, 2014 [facility] [address] [id number] [address] [place] [address], [place] [address] May, [facility] [address] [id number] [address] [place] [address], [place] [address] May, [facility] [address] [id number] [address] [place] [address], [place] [address] May, [facility] [address] [id number] [address] [place] [address], [place] [address] Apr, [facility] [address] [id number] [address] [place] [address], [place] [address] Apr, [facility] [address] [id number] [address] [place] [address], [place] [address] Apr, [facility] [address] [id number] [address] [place] [address], [place] [address] Apr, [facility] [address] [id number] [address] [place] [address], [place] [address] Apr, [facility] [address] [id number] [address] [place] [address], [place] [address] Apr, [facility] [address] [id number] [address] [place] [address], [place] [address] Apr, [facility] [address] [id number] [address] [place] [address], [place] [address] Apr, [facility] [address] [id number] [address] [place] [address], [place] [address] Apr, [facility] [address] [id number] [address] [place] [address], [place] [address] Apr, [facility] [address] [id number] [address] [place] [address], [place] [address] Apr, [facility] [address] [id number] [address] [place] [address], [place] [address] Apr, [facility] [address] [id number] [address] [place] [address], [place] [address] Mar, [facility] [address] [id number] [address] [place] [address], [place] [address] Mar, [facility] [address] [id number] [address] [place] [address], [place] [address] Mar, [facility] [address] [id number] [address] [place] [address], [place] [address] Mar, [facility] [address] [id number] [address] [place] [address], [place] [address] Mar, [facility] [address] [id number] [address] [place] [address], [place] [address] Mar, [facility] [address] [id number] [address] [place] [address], [place] [address] Feb, [facility] [address] [id number] [address] [place] [address], [place] [address] Feb, [facility] [address] [id number] [address] [place] [address], [place] [address] Feb, [facility] [address] [id number] [address] [place] [address], [place] [address] Feb, [facility] [address] [id number] [address] [place] [address], [place] [address] 14 Jan, 2014 [facility] [address] [id number] [address] [place] [address], [place] [address] 14 Jan, 2014 [facility] [address] [id number] [address] [place] [address], [place] [address] 14 Jan, 2014 [facility] [address] [id number] [address] [place] [address], [place] [address] 14 Jan, 2014 [facility] [address] [id number] [address] [place] [address], [place] [address] 22 Dec, 2013 [facility] [address] [id number] [facility] [address] Dec, [facility] [address] [id number] [address] [place] [address], [place] [address] Dec, [facility] [address] [id number] [address] [place] [address], [place] [address] Dec, [facility] [address] [id number] [address] [place] [address], [place] [address] Nov, [facility] [address] [id number] [address] [place] [address], [place] [address] Nov, [facility] [address] [id number] [address] [place] [address], [place] [address] Nov, [facility] [address] [id number] [address] [place] [address], [place] [address] Nov, [facility] [address] [id number] [address] [place] [address], [place] [address] Nov, [facility] [address] [id number] [address] [place] [address], [place] [address] Nov, [facility] [address] [id number] [address] [place] [address], [place] [address] Nov, [facility] [address] [id number] [address] [place] [address], [place] [address] Oct, [facility] [address] [id number] [address] [place] [address], [place] [address] Oct, [facility] [address] [id number] [address] [place] [address], [place] [address] Oct, [facility] [address] [id number] [address] [place] [address], [place] [address] Oct, [facility] [address] [id number] [address] [place] [address], [place] [address] Oct, [facility] [address] [id number] [address] [place] [address], [place] [address] Oct, [facility] [address] [id number] [address] [place] [address], [place] [address] Oct, [facility] [address] [id number] [address] [place] [address], [place] [address] Sep, [facility] [address] [id number] [address] [place] [address], [place] [address] Sep, [facility] [address] [id number] [address] [place] [address], [place] [address] Sep, [facility] [address] [id number] [address] [place] [address], [place] [address] Sep, [facility] [address] [id number] [address] [place] [address], [place] [address] Sep, [facility] [address] [id number] [address] [place] [address], [place] [address] Jul, [facility] [address] [id number] [address] [place] [address], [place] [address] Jul, [facility] [address] [id number] [address] [place] [address], [place] [address] Jul, [facility] [address] [id number] [address] [place] [address], [place] [address] Jul, [facility] [address] [id number] [address] [place] [address], [place] [address] Jul, [facility] [address] [id number] [address] [place] [address], [place] [address] Jul, [facility] [address] [id number] [address] [place] [address], [place] [address] Jul, [facility] [address] [id number] [address] [place] [address], [place] [address] Jul, [facility] [address] [id number] [address] [place] [address], [place] [address] Jul, [facility] [address] [id number] [address] [place] [address], [place] [address] Jul, [facility] [address] [id number] [facility] [address] Jul, [facility] [address] [id number] [address] [place] [address], [place] [address] Jul, [facility] [address] [id number] [address] [place] [address], [place] [address] Jun, [facility] [address] [id number] [address] [place] [address], [place] [address] Jun, [facility] [address] [id number] [address] [place] [address], [place] [address] Jun, [facility] [address] [id number] [address] [place] [address], [place] [address] Jun, [facility] [address] [id number] [address] [place] [address], [place] [address] Jun, [facility] [address] [id number] [address] [place] [address], [place] [address] Jun, [facility] [address] [id number] [address] [place] [address], [place] [address] Jun, [facility] [address] [id number] [address] [place] [address], [place] [address] Jun, [facility] [address] [id number] [address] [place] [address], [place] [address] May, [facility] [address] [id number] [address] [place] [address], [place] [address] May, [facility] [address] [id number] [address] [place] [address], [place] [address] May, [facility] [address] [id number] [address] [place] [address], [place] [address] May, [facility] [address] [id number] [address] [place] [address], [place] [address] May, [facility] [address] [id number] [address] [place] [address], [place] [address] May, [facility] [address] [id number] [address] [place] [address], [place] [address] May, [facility] [address] [id number] [address] [place] [address], [place] [address] May, [facility] [address] [id number] [address] [place] [address], [place] [address] Apr, [facility] [address] [id number] [address] [place] [address], [place] [address] Apr, [facility] [address] [id number] [address] [place] [address], [place] [address] Apr, [facility] [address] [id number] [address] [place] [address], [place] [address] Apr, [facility] [address] [id number] [address] [place] [address], [place] [address] Mar, [facility] [address] [id number] [address] [place] [address], [place] [address] Mar, [facility] [address] [id number] [address] [place] [address], [place] [address] Mar, [facility] [address] [id number] [address] [place] [address], [place] [address] Feb, [facility] [address] [id number] [address] [place] [address], [place] [address] Feb, [facility] [address] [id number] [address] [place] [address], [place] [address] Feb, [facility] [address] [id number] [address] [place] [address], [place] [address] Feb, [facility] [address] [id number] [address] [place] [address], [place] [address] Feb, [facility] [address] [id number] [address] [place] [address], [place] [address] Feb, [facility] [address] [id number] [address] [place] [address], [place] [address] Jan, [facility] [address] [id number] [address] [place] [address], [place] [address] Jan, [facility] [address] [id number] [address] [place] [address], [place] [address] Jan, [facility] [address] [id number] [address] [place] [address], [place] [address] Jan, [facility] [address] [id number] [address] [place] [address], [place] [address] Jan, [facility] [address] [id number] [address] [place] [address], [place] [address] Jan, [facility] [address] [id number] [address] [place] [address], [place] [address] Jan, [facility] [address] [id number] [address] [place] [address], [place] [address] Dec, [facility] [address] [id number] [address] [place] [address], [place] [address] 16 Dec, 2012 [facility] [address] [id number] [address] [place] [address], [place] [address] 10 Dec, 2012 [facility] [address] [id number] [address] [place] [address], [place] [address] 05 Dec, 2012 [facility] [address] [id number] [address] [place] [address], [place] [address] Nov, [facility] [address] [id number] [address] [place] [address], [place] [address] Nov, [facility] [address] [id number] [address] [place] [address], [place] [address] Nov, [facility] [address] [id number] [address] [place] [address], [place] [address] Nov, [facility] [address] [id number] [address] [place] [address], [place] [address] Nov, [facility] [address] [id number] [address] [place] [address], [place] [address] Nov, [facility] [address] [id number] [address] [place] [address], [place] [address] Nov, [facility] [address] [id number] [address] [place] [address], [place] [address] Oct, [facility] [address] [id number] [address] [place] [address], [place] [address] Oct, [facility] [address] [id number] [address] [place] [address], [place] [address] Oct, [facility] [address] [id number] [address] [place] [address], [place] [address] Oct, [facility] [address] [id number] [address] [place] [address], [place] [address] Oct, [facility] [address] [id number] [address] [place] [address], [place] [address] Oct, [facility] [address] [id number] [address] [place] [address], [place] [address] Oct, [facility] [address] [id number] [address] [place] [address], [place] [address] Oct, [facility] [address] [id number] [address] [place] [address], [place] [address] Sep, mananzJANAK PEREZ [address] [id number] COFFEYVI[place] [id number] August, [facility] [address] [id number] [address] [place] [address], [place] [address] August, [facility] [address] [id number] [address] [place] [address], [place] [address] Jul, [facility] [address] [id number] [address] [place] [address], [place] [address] 29 Jul, 2012 [facility] [address] [id number] [address] [place] [address], [place] [address] Jul, [facility] [address] [id number] [address] [place] [address], [place] [address] 22 Jul, 2012 [facility] [address] [id number] [address] [place] [address], [place] [address] 18 Jul, 2012 [facility] [address] [id number] [address] [place] [address], [place] [address] 17 Jul, 2012 [facility] [address] [id number] [address] [place] [address], [place] [address] 16 Jul, 2012 [facility] [address] [id number] [address] [place] [address], [place] [address] Jun, [facility] [address] [id number] [address] [place] [address], [place] [address] Jun, [facility] [address] [id number] [address] [place] [address], [place] [address] Jun, [facility] [address] [id number] [address] [place] [address], [place] [address] Jun, [facility] [address] [id number] [address] [place] [address], [place] [address] Jun, [facility] [address] [id number] [address] [place] [address], [place] [address] May, [facility] [address] [id number] [address] [place] [address], [place] [address] 18 May, 2012 [facility] [address] [id number] [address] [place] [address], [place] [address] 04 May, 2012 [facility] [address] [id number] [address] [place] [address], [place] [address] 15 Apr, 2012 [facility] [address] [id number] [address] [place] [address], [place] [address] 14 Apr, 2012 [facility] [address] [id number] [address] [place] [address], [place] [address] Apr, [facility] [address] [id number] [address] [place] [address], [place] [address] Mar, [facility] [address] [id number] [address] [place] [address], [place] [address] Mar, [facility] [address] [id number] [address] [place] [address], [place] [address] Mar, [facility] [address] [id number] [address] [place] [address], [place] [address] Mar, [facility] [address] [id number] [address] [place] [address], [place] [address] Mar, [facility] [address] [id number] [address] [place] [address], [place] [address] Mar, [facility] [address] [id number] [address] [place] [address], [place] [address] Feb, [facility] [address] [id number] [address] [place] [address], [place] [address] Feb, [facility] [address] [id number] [address] [place] [address], [place] [address] Jan, [facility] [address] [id number] [address] [place] [address], [place] [address] Jan, [facility] [address] [id number] [address] [place] [address], [place] [address] Dec, [facility] [address] [id number] [address] [place] [address], [place] [address] Nov, [facility] [address] [id number] [address] [place] [address], [place] [address] Nov, [facility] [address] [id number] [address] [place] [address], [place] [address] Nov, [facility] [address] [id number] [address] [place] [address], [place] [address] Nov, [facility] [address] [id number] [address] [place] [address], [place] [address] Oct, [facility] [address] [id number] [address] [place] [address], [place] [address] Oct, [facility] [address] [id number] [address] [place] [address], [place] [address] Oct, [facility] [address] [id number] [address] [place] [address], [place] [address] Sep, [facility] [address] [id number] [address] [place] [address], [place] [address] Sep, [facility] [address] [id number] [address] [place] [address], [place] [address] Sep, [facility] [address] [id number] [address] [place] [address], [place] [address] August, [facility] [address] [id number] [address] [place] [address], [place] [address] August, [facility] [address] [id number] [address] [place] [address], [place] [address] Jul, [facility] [address] [id number] [address] [place] [address], [place] [address] Jul, [facility] [address] [id number] [address] [place] [address], [place] [address] Jul, [facility] [address] [id number] [address] [place] [address], [place] [address] Jul, [facility] [address] [id number] [address] [place] [address], [place] [address] Jun, [facility] [address] [id number] [address] [place] [address], [place] [address] May, [facility] [address] [id number] [address] [place] [address], [place] [address] Apr, [facility] [address] [id number] [address] [place] [address] Apr, [facility] [address] [id number] [address] [place] [address], [place] [address] Apr, [facility] [address] [id number] [address] [place] [address] Apr, [facility] [address] [id number] [address] [place] [address], [place] [address] Apr, [facility] [address] [id number] [address] [place] [address], [place] [address] Apr, [facility] [address] [id number] [address] [place] [address], [place] [address] Mar, [facility] [address] [id number] [address] [place] [address], [place] [address] Mar, [facility] [address] [id number] [address] [place] [address] Feb, [facility] [address] [id number] [address] [place] [address], [place] [address] Feb, [facility] [address] [id number] [address] [place] [address], [place] [address] Feb, [facility] [address] [id number] [address] [place] [address] Feb, [facility] [address] [id number] [address] [place] [address], [place] [address] Jan, [facility] [address] [id number] [address] [place] [address] Jan, [facility] [address] [id number] [address] [place] [address], [place] [address] Jan, [facility] [address] [id number] [address] [place] [address] Jan, [facility] [address] [id number] [address] [place] [address] Nov, [facility] [address] [id number] [address] [place] [address], [place] [address] 03 Mar, 2010 [facility] [address] [id number] [address] [place] [address], [place] [address] 02 Mar, 2010 [facility] [address] [id number] [address] [place] [address], [place] [address] 30 Feb, 2010 [facility] [address] [id number] [address] [place] [address], [place] [address] 15 Feb, 2010 [facility] [address] [id number] [address] [place] [address], [place] [address] Jan, [facility] [address] [id number] [address] [place] [address], [place] [address] Jan, [facility] [address] [id number] [address] [place] [address], [place] [address] Sep, [facility] [address] [id number] [address] [place] [address], [place] [address] 16 May, 2009 [facility] [address] [id number] [address] [place] [address], [place] [address] Apr, [facility] [address] [id number] [address] [place] [address], [place] [address] Mar, [facility] [address] [id number] [address] [place] [address], [place] [address] 15 Feb, 2009 [facility] [address] [id number] [address] [place] [address], [place] [address] 10 Feb, 2009 [facility] [address] [id number] [address] [place] [address], [place] [id number] 10 Feb, 2009 [facility] [address] [id number] [address] [place] [address], [place] [id number] 22 Jan, 2009 [facility] [address] [id number] [address] [place] [id number] 13 Jan, 2009 [facility] [address] [id number] [address] [place] [id number] 13 Jan, 2009 [facility] [address] [facility] [id number] [address] [id number] 11 Jan, 2009 [facility] [address] [facility] [id number] [address] [place] [id number] August, IMMUNIZATIONS No Known Immunizations SOCIAL HISTORY [...] age 6 Hospitalization History surgery Hospitalization History [facility], [facility] few times for BH
--- OUTSIDE RECORDS SUMMARY | 2019-09-29 10:34 | XMS REPORT ---
Author Author Cameron Estrella Doctor Organization [facility] Address Unknown Phone Unavailable Care Team Providers Care Patient Coordinator Name Role Phone Migration, Doctor Unavailable Unavailable PROBLEMS Type Condition ICD9-CM Code XBG08-IV Code Onset Dates Condition S tatus SNOMED Code Problem Open-angle glaucoma of both eyes, unspecified glaucoma stage, unspecified open-angle glaucoma type H40.10X0 Acti ve 84631004 Problem Adjustment disorder, unspecified type F43.20 Active 67004280 Problem Obstructive sleep apnea G47.33 Active 12578926 Problem Hypertensive retinopathy of both eyes H35.033 Active 6627747 Problem Type 2 diabetes mellitus with complication E11.8 Active 76064742 Problem Essential hypertension I10 Active 98520340 Problem Depression F32.9 Active 63085323 Problem Intermittent explosive disorder F63.81 Active 06479631 Problem Intermittent explosive disorder in adult F63.81 Active 94193907 Problem Bipolar disorder, unspecified F31.9 Active 57874277 Problem Mild intellectual disability F70 A ctive 50894080 Problem Other specified urinary incontinence N39.498 Active 146987972 Problem Bipolar disorder, in partial remission, most rec ent episode manic F31.73 Active 84076139 Problem 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 Active 59716591 Problem Type 2 diabetes mellitus wit h diabetic neuropathy, unspecified whether assisted insulin use E11.40 Active 914613 000196466 Problem Diabetes E11.9 Active 39417057 Problem Reactive airway disease, unspecified asthma justin rity, uncomplicated J45.909 Active 648609178265 Problem Reactive airway disease, mild intermittent, uncomplicated J45.20 Active 064720964 Problem Gastroesophageal reflux disease without esophagitis K21.9 Active 270593818 Problem Other diabetic neurological complication associated with type 2 diabetes mellitus E11.49 Active 987025121 Problem Neuropathy G62.9 Active 497949503 ALLERGIES No Information ENCOUNTERS Encounter Location Date Diagnosis [facility] [address] [facility] [id number] [address] [place] [address] Oct, [facility] [address] [facility] [id number] [address] [place] [phone] August, [facility] [address] [facility] [id number] [address] [place] [phone] Jul, [facility] [address] [facility] [id number] [address] [place] [phone] Jul, Type 2 diabetes mellitus wit h diabetic neuropathy, 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 and Tinea pedis, unspecified laterality B35.3 [facility] [address] [facility] [id number] [address] [place] [phone] Jun, [facility] [address] [facility] [id number] [address] [place] [phone] Jun, [facility] [address] [facility] [id number] [address] [place] [phone] Jun, Dysuria R30.0 [facility] [address] [facility] [id number] [address] [place] [phone] Jun, [facility] [address] [facility] [id number] [address] [place] [phone] May, Influenza J11.1 [facility] [address] [facility] [id number] [address] [place] [phone] May, Intermittent explosive disor salvatore in adult F63.81 [facility] [address] [facility] [id number] [address] [place] [phone] May, [facility] [address] [facility] [id number] [address] [place] [phone] Apr, Intermittent explosive disor salvatore in adult F63.81 ; Bipolar disorder, unspecified F31.9 and Mild intellectual disability F70 [facility] [id number] [place] [phone] Apr, Oral health maintenance stat us requiring routine preventive dental care K08.9 [facility] [address] [place] [id number] [address] [place] [phone] 20 Apr, 2019 Type 2 diabetes mellitus wit h complication E11.8 ; History of test for hearing Z92.89 ; Colon cancer screening Z12.11 ; Other specified urinary incontinence N39.498 and Impacted cerumen, right ear H61.21 [facility] [address] [id number] [address] [place] [phone] 10 Apr, 2019 Onychomycosis B35.1 ; Other diabetic neurological complication associated with type 2 diabetes mellitus E11.49 and Tinea pedis of both feet B35.3 [facility] [address] [id number] [address] [place] [phone] Feb, [facility] [address] [id number] [address] [place] [phone] Jan, [facility] [address] [id number] [address] [place] [phone] Jan, [facility] [address] [id number] [address] [place] [phone] Jan, [facility] [address] [id number] [address] [place] [phone] Jan, [facility] [address] [id number] [address] [place] [phone] Jan, [facility] [address] [id number] [address] [place] [phone] Jan, [facility] [address] [id number] [address] [place] [phone] Jan, [facility] [address] [id number] [address] [place] [phone] Jan, Anemia D64.9 [facility] [id number] [place] [phone] 04 Jan, 2019 Dental examination Z01.20 an d Oral health maintenance status requiring routine preventive dental care K08.9 [facility] [address] [place] [id number] [address] [place] [phone] Jan, Onychomycosis B35.1 and Othe r diabetic neurological complication associated with type 2 diabetes mellitus E11.49 [facility] [address] [facility] [id number] [address] [place] [phone] Jan, Anemia D64.9 [facility] [address] [place] [id number] [address] [place] [phone] Jan, [facility] [address] [place] [id number] [address] [place] [phone] Dec, Urinary tract infection with out hematuria, site unspecified N39.0 [place] [address] [place] [id number] [address] [place] [phone] Dec, Type 2 diabetes mellitus wit h complication E11.8 ; Urinary tract infection without hematuria, site unspecified N39.0 ; Impacted cerumen of both ears H61.23 ; Encounter for immunization Z23 and Hyponatremia E87.1 [facility] [address] [place] [id number] [address] [place] [phone] Dec, Intermittent explosive disor salvatore in adult F63.81 ; Dysuria R30.0 ; Type 2 diabetes mellitus with complication E11.8 ; Bipolar disorder, unspecified F31.9 and Mild intellectual disability F70 [facility] [address] [place] [id number] [address] [place] [phone] Dec, Dysuria R30.0 [facility] [address] [place] [id number] [address] [place] [phone] Dec, Intermittent explosive disor salvatore in adult F63.81 ; Bipolar disorder, unspecified F31.9 and Mild intellectual disability F70 [facility] [address] [place] [id number] [address] [place] [phone] Nov, [facility] [address] [facility] [id number] [address] [place] [phone] Oct, [facility] [address] [facility] [id number] [place] [id number] Oct, Oral health maintenance stat us requiring routine preventive dental care K08.9 [facility] [address] [place] [id number] [address] [place] [phone] August, Intermittent explosive disor salvatore in adult F63.81 ; Bipolar disorder, unspecified F31.9 and Mild intellectual disability F70 [facility] [address] [facility] [id number] [address] [place] [address] [id number] August, Dental caries K02.9 [facility] [address] [facility] [id number] [address] [place] [phone] Jul, Onychomycosis B35.1 ; Other diabetic neurological complication associated with type 2 diabetes mellitus E11.49 and Tinea pedis of both feet B35.3 [facility] [address] [facility] [id number] [address] [place] [address] [id number] Jul, Caries K02.9 [facility] [address] [place] [id number] [address] [place] [phone] Jul, Type 2 diabetes mellitus wit h complication E11.8 ; Tobacco abuse Z72.0 and Bipolar disorder, unspecified F31.9 [facility] [id number] [place] [phone] Jun, [facility] [address] [facility] [id number] [address] [place] [address] [phone] Jun, Dental examination Z01.20 an d Oral health maintenance status requiring routine preventive dental care K08.9 [facility] [address] [place] [id number] [address] [place] [phone] May, Bilateral impacted cerumen H 61.23 [facility] [address] [place] [id number] [address] [place] [phone] Apr, Bipolar disorder, unspecifie d F31.9 ; Intermittent explosive disorder in adult F63.81 ; Type 2 diabetes mellitus with complication E11.8 ; Tobacco abuse Z72.0 and Colon cancer screening Z12.11 [facility] [address] [place] [id number] [address] [place] [phone] Apr, Onychomycosis B35.1 and Othe r diabetic neurological complication associated with type 2 diabetes mellitus E11.49 [facility] [address] [facility] [id number] [address] [place] [phone] Apr, Intermittent explosive disor salvatore in adult F63.81 ; Bipolar disorder, unspecified F31.9 and Mild intellectual disability F70 [facility] [address] [facility] [id number] [address] [place] [phone] Mar, Diabetes E11.9 [facility] [address] [facility] [id number] [address] [place] [phone] Jan, Encounter for immunization Z 23 [facility] [address] [facility] [id number] [address] [place] [phone] Jan, Tinea pedis of both feet B35 .3 ; Other diabetic neurological complication associated with type 2 diabetes mellitus E11.49 and Onychomycosis B35.1 [facility] [address] [place] [id number] [address] [place] [id number] Nov, Type 2 diabetes mellitus wit h complication E11.8 [facility] [address] [facility] [id number] [address] [place] [phone] Nov, [facility] [address] [place] [id number] [address] [place] [phone] Oct, Intermittent explosive disor salvatore in adult F63.81 ; Bipolar disorder, unspecified F31.9 and Mild intellectual disability F70 [facility] [address] [facility] [id number] [address] [place] [phone] Oct, [facility] [address] [place] [id number] [address] [place] [address] [id number] Oct, Dental examination Z01.20 [facility] [address] [facility] [id number] [address] [place] [phone] Oct, Onychomycosis B35.1 and Othe r diabetic neurological complication associated with type 2 diabetes mellitus E11.49 [facility] [address] [facility] [id number] [address] [place] [phone] 19 Sep, 2017 Type 2 diabetes mellitus wit h complication E11.8 and Colon cancer screening Z12.11 [facility] [address] [facility] [id number] [address] [place] [phone] 18 Sep, 2017 Type 2 diabetes mellitus wit h complication E11.8 ; Colon cancer screening Z12.11 and Neuropathy G62.9 [facility] [address] [facility] [id number] [address] [place] [phone] August, Diabetes E11.9 [facility] [address] [facility] [id number] [address] [place] [address] [id number] Jul, Dental examination Z01.20 [facility] [address] [facility] [id number] [address] [place] [phone] 27 May, 2017 Mild intellectual disability F70 [place] [address] [place] [id number] [address] [place] [phone] May, Mild intellectual disability F70 ; High risk medication use Z79.899 ; Intermittent explosive disorder in adult F63.81 and Bipolar disorder, unspecified F31.9 [place] [id number] [facility] [id number] [address] [place] [phone] May, [facility] [address] [place] [id number] [address] [place] [phone] May, [facility] [address] [place] [id number] [address] [place] [phone] Apr, Type 2 diabetes mellitus wit h complication E11.8 ; Mild intellectual disability F70 ; Gastroesophageal reflux disease without esophagitis K21.9 ; Reactive airway disease, mild intermittent, uncomplicated J45.20 and Tobacco abuse Z72.0 [facility] [address] [facility] [id number] [address] [place] [phone] Apr, High risk medication use Z79 .899 ; Mild intellectual disability F70 ; Intermittent explosive disorder in adult F63.81 and Bipolar disorder, unspecified F31.9 [facility] [address] [id number] [address] [place] [address] [id number] Mar, Encounter for dental exam an d cleaning w/o abnormal findings Z01.20 [facility] [address] [id number] [address] [place] [address] [id number] Mar, Dental examination Z01.20 [facility] [address] [id number] [address] [place] [phone] 12 Jan, 2017 [facility] [address] [id number] [address] [place] [phone] Jan, [facility] [address] [id number] [address] [place] [phone] 10 Jan, 2017 Mild intellectual disability F70 ; Bipolar disorder, unspecified F31.9 and Intermittent explosive disorder in adult F63.81 [facility] [address] [id number] [address] [place] [phone] 02 Jan, 2017 Diabetes E11.9 [facility] [address] [id number] [address] [place] [address] [id number] 13 Dec, 2016 Encounter for dental examina tion and cleaning without abnormal findings Z01.20 [facility] [address] [id number] [address] [place] [phone] 12 Dec, 2016 Bipolar disorder, unspecifie d F31.9 ; Intermittent explosive disorder in adult F63.81 and Mild intellectual disability F70 [facility] [address] [id number] [address] [place] [phone] Nov, Diabetes E11.9 [facility] [address] [id number] [address] [place] [phone] Nov, [facility] [address] [id number] [address] [place] [phone] Nov, Diabetes E11.9 and Colon can cer screening Z12.[id number] [place] [address] [id number] Sep, Dental examination Z01.20 [facility] [address] [id number] [address] [place] [address] [id number] 21 Sep, 2016 Encounter for dental examina tion and cleaning without abnormal findings Z01.20 [facility] [address] [id number] [address] [place] [phone] 13 Sep, 2016 Bipolar disorder, unspecifie d F31.9 [facility] [address] [id number] [address] [place] [phone] Sep, Bipolar disorder, unspecifie d F31.9 [facility] [address] [id number] [address] [place] [phone] Jul, [facility] [address] [id number] [address] [place] [phone] Jul, Type 2 diabetes mellitus wit h complication E11.8 [facility] [address] [id number] [address] [place] [address] [id number] Jun, Encounter for dental examina tion and cleaning without abnormal findings Z01.[address] [place] [id number] [place] [address] [id number] Jun, Dental examination Z01.20 [facility] [address] [facility] [id number] [address] [place] [phone] Apr, Sports physical Z02.5 [facility] [address] [id number] [address] [place] [phone] 14 Mar, 2016 Bipolar disorder, in partial remission, most recent episode manic F31.73 and Intermittent explosive disorder in adult F63.81 [facility] [address] [id number] [address] [place] [phone] 08 Mar, 2016 [facility] [address] [id number] [address] [place] [phone] 06 Mar, 2016 Diabetes E11.9 [facility] [address] [id number] [address] [place] [address] [id number] Feb, Encounter for dental examina tion and cleaning without abnormal findings Z01.20 [facility] [address] [facility] [id number] [address] [place] [phone] 22 Dec, 2015 Nocturnal hypoxemia G47.34 a nd Encounter for immunization Z23 [facility] [address] [facility] [id number] [address] [place] [phone] 15 Dec, 2015 [facility] [address] [facility] [id number] [address] [place] [phone] 12 Dec, 2015 [facility] [address] [facility] [id number] [address] [place] [phone] 12 Dec, 2015 Bipolar disorder, unspecifie d F31.9 [facility] [address] [place] [id number] [address] [place] [address] [id number] 13 Oct, 2015 Encounter for dental examina tion and cleaning without abnormal findings Z01.[address] [place] [id number] [place] [address] [id number] 13 Oct, 2015 Dental examination Z01.20 [facility] [address] [place] [id number] [address] [place] [id number] 07 Oct, 2015 Diabetes E11.9 [place] [address] [id number] Oct, Diabetes E11.9 ; Reactive ai rway disease, mild intermittent, uncomplicated J45.20 and Tobacco abuse Z72.0 [place] [id number] [place] [id number] [address] [place] [id number] Sep, Bipolar disorder, unspecifie d F31.9 and Depression F32.9 [facility] [address] [place] [id number] [address] [place] [phone] Sep, [place] [address] [id number] August, Tinea pedis of both feet B35 .3 and DM w/o complication type II, uncontrolled E11.65 [place] [id number] [place] [id number] [address] [place] [phone] Jul, [facility] [address] [id number] Jul, [facility] [address] [id number] Jul, Obstructive sleep apnea G47. 33 [place] [address] [id number] Jun, Diabetes E11.9 [place] [address] [id number] Jun, [place] [address] [id number] Jun, [place] [address] [phone] Jun, Bipolar disorder, unspecifie d F31.9 and Mental retardation F79 [place] [address] [id number] Apr, [place] [address] [id number] Feb, Diabetes E11.9 ; Encounter f or immunization Z23 ; Cough R05 and Nicotine abuse Z72.0 [place] [address] [id number] Jan, Bipolar disorder, unspecifie d F31.9 and Diabetes mellitus without mention of complication, type II or unspecified type, uncontrolled 250.02 [place] [address] [id number] Jan, [place] [address] [address] Dec, Reactive airway disease 493. 90 and Enuresis 788.30 [place] [address] [id number] Dec, [place] [address] [id number] Nov, [facility] [address] [id number] [address] [place] [phone] Nov, [facility] [address] [id number] [address] [place] [phone] Nov, Annual physical exam V70.0 ; Urinary incontinence 788.30 ; Diabetes 250.00 and Hypertension 401.9 [facility] [address] [id number] [address] [place] [phone] Oct, Diabetes mellitus without me ntion of complication, type II or unspecified type, uncontrolled 250.02 [facility] [address] [id number] [address] [place] [phone] Oct, Diabetes mellitus without me ntion of complication, type II or unspecified type, uncontrolled 250.02 [facility] [address] [facility] [id number] [address] [place] [phone] Oct, Diabetes mellitus without me ntion of complication, type II or unspecified type, uncontrolled 250.02 [facility] [address] [id number] [address] [place] [id number] Oct, [facility] [address] [id number] [address] [place] [phone] Oct, [facility] [address] [facility] [id number] [address] [place] [phone] Oct, Bipolar disorder, unspecifie d 296.80 [facility] [address] [id number] [address] [place] [address] [id number] Sep, Dental examination V72.2 [facility] [address] [id number] [address] [place] [phone] August, [facility] [address] [id number] [address] [place] [address] [id number] August, Dental examination V72.2 [facility] [address] [id number] [address] [place] [phone] August, [facility] [address] [id number] [address] [place] [address], [place] [phone] 14 Jul, 2014 [facility] [address] [id number] [address] [place] [address], [place] [phone] 13 Jul, 2014 [facility] [address] [id number] [address] [place] [address], [place] [phone] 17 Jun, 2014 [facility] [address] [id number] [address] [place] [address], [place] [phone] 17 Jun, 2014 [facility] [address] [id number] [address] [place] [address], [place] [phone] 17 Jun, 2014 [facility] [address] [id number] [address] [place] [address], [place] [phone] Jun, [facility] [address] [id number] [address] [place] [address], [place] [address] 23 May, 2014 [facility] [address] [id number] [address] [place] [address], [place] [address] 23 May, 2014 [facility] [address] [id number] [address] [place] [address], [place] [address] 16 May, 2014 [facility] [address] [id number] [address] [place] [address], [place] [address] 16 May, 2014 [facility] [address] [id number] [address] [place] [address], [place] [address] 16 May, 2014 [facility] [address] [id number] [address] [place] [address], [place] [address] 16 May, 2014 [facility] [address] [id number] [address] [place] [address], [place] [address] 16 May, 2014 [facility] [address] [id number] [address] [place] [address], [place] [address] 16 May, 2014 [facility] [address] [id number] [address] [place] [address], [place] [address] 16 May, 2014 [facility] [address] [id number] [address] [place] [address], [place] [address] 16 May, 2014 [facility] [address] [id number] [address] [place] [address], [place] [address] May, [facility] [address] [id number] [address] [place] [address], [place] [address] May, 2014 [facility] [address] [id number] [address] [place] [address], [place] [address] May, 2014 [facility] [address] [id number] [address] [place] [address], [place] [address] May, [facility] [address] [id number] [address] [place] [address], [place] [address] May, [facility] [address] [id number] [address] [place] [address], [place] [address] Apr, [facility] [address] [id number] [address] [place] [address], [place] [address] Apr, [facility] [address] [id number] [address] [place] [address], [place] [address] Apr, [facility] [address] [id number] [address] [place] [address], [place] [address] Apr, [facility] [address] [id number] [address] [place] [address], [place] [address] Apr, [facility] [address] [id number] [address] [place] [address], [place] [address] Apr, [facility] [address] [id number] [address] [place] [address], [place] [address] Apr, [facility] [address] [id number] [address] [place] [address], [place] [address] Apr, [facility] [address] [id number] [address] [place] [address], [place] [address] Apr, [facility] [address] [id number] [address] [place] [address], [place] [address] Apr, [facility] [address] [id number] [address] [place] [address], [place] [address] Apr, [facility] [address] [id number] [address] [place] [address], [place] [address] Apr, [facility] [address] [id number] [address] [place] [address], [place] [address] Mar, [facility] [address] [id number] [address] [place] [address], [place] [address] Mar, [facility] [address] [id number] [address] [place] [address], [place] [address] Mar, [facility] [address] [id number] [address] [place] [address], [place] [address] Mar, [facility] [address] [id number] [address] [place] [address], [place] [address] Mar, [facility] [address] [id number] [address] [place] [address], [place] [address] Mar, [facility] [address] [id number] [address] [place] [address], [place] [address] Feb, [facility] [address] [id number] [address] [place] [address], [place] [address] Feb, [facility] [address] [id number] [address] [place] [address], [place] [address] Feb, [facility] [address] [id number] [address] [place] [address], [place] [address] Feb, [facility] [address] [id number] [address] [place] [address], [place] [address] 14 Jan, 2014 [facility] [address] [id number] [address] [place] [address], [place] [address] 14 Jan, 2014 [facility] [address] [id number] [address] [place] [address], [place] [address] 14 Jan, 2014 [facility] [address] [id number] [address] [place] [address], [place] [address] Jan, [facility] [address] [id number] [facility] [place] [address] Dec, [facility] [address] [id number] [address] [place] [address], [place] [address] Dec, [facility] [address] [id number] [address] [place] [address], [place] [address] Dec, [facility] [address] [id number] [address] [place] [address], [place] [address] Dec, [facility] [address] [id number] [address] [place] [address], [place] [address] Nov, [facility] [address] [id number] [address] [place] [address], [place] [address] Nov, [facility] [address] [id number] [address] [place] [address], [place] [address] Nov, [facility] [address] [id number] [address] [place] [address], [place] [address] Nov, [facility] [address] [id number] [address] [place] [address], [place] [address] Nov, [facility] [address] [id number] [address] [place] [address], [place] [address] Nov, [facility] [address] [id number] [address] [place] [address], [place] [address] Nov, [facility] [address] [id number] [address] [place] [address], [place] [address] Oct, [facility] [address] [id number] [address] [place] [address], [place] [address] Oct, [facility] [address] [id number] [address] [place] [address], [place] [address] Oct, [facility] [address] [id number] [address] [place] [address], [place] [address] Oct, [facility] [address] [id number] [facility] [place] [address] Oct, [facility] [address] [id number] [facility] [place] [address] Oct, [facility] [address] [id number] [address] [place] [address], [place] [address] Oct, [facility] [address] [id number] [address] [place] [address], [place] [address] Sep, [facility] [address] [id number] [address] [place] [address], [place] [address] Sep, [facility] [address] [id number] [address] [place] [address], [place] [address] Sep, [facility] [address] [id number] [address] [place] [address], [place] [address] Sep, [facility] [address] [id number] [address] [place] [address], [place] [address] Sep, [facility] [address] [id number] [address] [place] [address], [place] [address] Jul, [facility] [address] [id number] [address] [place] [address], [place] [address] Jul, [facility] [address] [id number] [address] [place] [address], [place] [address] Jul, [facility] [address] [id number] [address] [place] [address], [place] [address] Jul, [facility] [address] [id number] [address] [place] [address], [place] [address] Jul, [facility] [address] [id number] [address] [place] [address], [place] [address] Jul, [facility] [address] [id number] [address] [place] [address], [place] [address] Jul, [facility] [address] [id number] [address] [place] [address], [place] [address] Jul, [facility] [address] [id number] [facility] [place] [address] Jul, [facility] [address] [id number] [address] [place] [address], [place] [address] Jul, [facility] [address] [id number] [address] [place] [address], [place] [address] Jul, [facility] [address] [id number] [address] [place] [address], [place] [address] Jul, [facility] [address] [id number] [address] [place] [address], [place] [address] Jun, [facility] [address] [id number] [address] [place] [address], [place] [address] Jun, [facility] [address] [id number] [address] [place] [address], [place] [address] Jun, [facility] [address] [id number] [address] [place] [address], [place] [address] Jun, [facility] [address] [id number] [address] [place] [address], [place] [address] Jun, [facility] [address] [id number] [address] [place] [address], [place] [address] Jun, [facility] [address] [id number] [address] [place] [address], [place] [address] Jun, [facility] [address] [id number] [address] [place] [address], [place] [address] Jun, [facility] [address] [id number] [address] [place] [address], [place] [address] May, [facility] [address] [id number] [address] [place] [address], [place] [address] May, [facility] [address] [id number] [address] [place] [address], [place] [address] May, [facility] [address] [id number] [address] [place] [address], [place] [address] May, [facility] [address] [id number] [address] [place] [address], [place] [address] May, [facility] [address] [id number] [address] [place] [address], [place] [address] May, [facility] [address] [id number] [address] [place] [address], [place] [address] May, [facility] [address] [id number] [address] [place] [address], [place] [address] May, [facility] [address] [id number] [address] [place] [address], [place] [address] Apr, [facility] [address] [id number] [address] [place] [address], [place] [address] Apr, [facility] [address] [id number] [address] [place] [address], [place] [address] Apr, [facility] [address] [id number] [address] [place] [address], [place] [address] Apr, [facility] [address] [id number] [address] [place] [address], [place] [address] Mar, [facility] [address] [id number] [address] [place] [address], [place] [address] Mar, [facility] [address] [id number] [address] [place] [address], [place] [address] Mar, [facility] [address] [id number] [address] [place] [address], [place] [address] Feb, [facility] [address] [id number] [address] [place] [address], [place] [address] Feb, [facility] [address] [id number] [address] [place] [address], [place] [address] Feb, [facility] [address] [id number] [address] [place] [address], [place] [address] Feb, [facility] [address] [id number] [address] [place] [address], [place] [address] Feb, [facility] [address] [id number] [address] [place] [address], [place] [address] Feb, [facility] [address] [id number] [address] [place] [address], [place] [address] Jan, [facility] [address] [id number] [address] [place] [address], [place] [address] Jan, [facility] [address] [id number] [address] [place] [address], [place] [address] Jan, [facility] [address] [id number] [address] [place] [address], [place] [address] Jan, [facility] [address] [id number] [address] [place] [address], [place] [address] Jan, [facility] [address] [id number] [address] [place] [address], [place] [address] Jan, [facility] [address] [id number] [address] [place] [address], [place] [address] Jan, [facility] [address] [id number] [address] [place] [address], [place] [address] 25 Dec, 2012 [facility] [address] [id number] [address] [place] [address], [place] [address] 16 Dec, 2012 [facility] [address] [id number] [address] [place] [address], [place] [address] 10 Dec, 2012 [facility] [address] [id number] [address] [place] [address], [place] [address] 05 Dec, 2012 [facility] [address] [id number] [address] [place] [address], [place] [address] 26 Nov, 2012 [facility] [address] [id number] [address] [place] [address], [place] [address] Nov, [facility] [address] [id number] [address] [place] [address], [place] [address] Nov, [facility] [address] [id number] [address] [place] [address], [place] [address] Nov, [facility] [address] [id number] [address] [place] [address], [place] [address] Nov, [facility] [address] [id number] [address] [place] [address], [place] [address] Nov, [facility] [address] [id number] [address] [place] [address], [place] [address] Nov, [facility] [address] [id number] [address] [place] [address], [place] [address] Oct, [facility] [address] [id number] [address] [place] [address], [place] [address] Oct, [facility] [address] [id number] [address] [place] [address], [place] [address] Oct, [facility] [address] [id number] [address] [place] [address], [place] [address] Oct, [facility] [address] [id number] [address] [place] [address], [place] [address] Oct, [facility] [address] [id number] [address] [place] [address], [place] [address] Oct, [facility] [address] [id number] [address] [place] [address], [place] [address] Oct, [facility] [address] [id number] [address] [place] [address], [place] [address] Oct, [facility] [address] [id number] [address] [place] [address], [place] [address] Sep, Suleiman PEREZ [address] [id number] [place] [id number] August, [facility] [address] [id number] [address] [place] [address], [place] [address] August, [facility] [address] [id number] [address] [place] [address], [place] [address] Jul, [facility] [address] [id number] [address] [place] [address], [place] [address] Jul, [facility] [address] [id number] [address] [place] [address], [place] [address] Jul, [facility] [address] [id number] [address] [place] [address], [place] [address] Jul, [facility] [address] [id number] [address] [place] [address], [place] [address] Jul, [facility] [address] [id number] [address] [place] [address], [place] [address] 17 Jul, 2012 [facility] [address] [id number] [address] [place] [address], [place] [address] Jul, [facility] [address] [id number] [address] [place] [address], [place] [address] Jun, [facility] [address] [id number] [address] [place] [address], [place] [address] Jun, [facility] [address] [id number] [address] [place] [address], [place] [address] Jun, [facility] [address] [id number] [address] [place] [address], [place] [address] Jun, [facility] [address] [id number] [address] [place] [address], [place] [address] Jun, [facility] [address] [id number] [address] [place] [address], [place] [address] May, [facility] [address] [id number] [address] [place] [address], [place] [address] May, [facility] [address] [id number] [address] [place] [address], [place] [address] May, [facility] [address] [id number] [address] [place] [address], [place] [address] 15 Apr, 2012 [facility] [address] [id number] [address] [place] [address], [place] [address] 14 Apr, 2012 [facility] [address] [id number] [address] [place] [address], [place] [address] 07 Apr, 2012 [facility] [address] [id number] [address] [place] [address], [place] [address] 31 Mar, 2012 [facility] [address] [id number] [address] [place] [address], [place] [address] 31 Mar, 2012 [facility] [address] [id number] [address] [place] [address], [place] [address] Mar, [facility] [address] [id number] [address] [place] [address], [place] [address] Mar, [facility] [address] [id number] [address] [place] [address], [place] [address] Mar, [facility] [address] [id number] [address] [place] [address], [place] [address] Mar, [facility] [address] [id number] [address] [place] [address], [place] [address] Feb, [facility] [address] [id number] [address] [place] [address], [place] [address] Feb, [facility] [address] [id number] [address] [place] [address], [place] [address] Jan, [facility] [address] [id number] [address] [place] [address], [place] [address] Jan, [facility] [address] [id number] [address] [place] [address], [place] [address] Dec, [facility] [address] [id number] [address] [place] [address], [place] [address] Nov, [facility] [address] [id number] [address] [place] [address], [place] [address] Nov, [facility] [address] [id number] [address] [place] [address], [place] [address] Nov, [facility] [address] [id number] [address] [place] [address], [place] [address] Nov, [facility] [address] [id number] [address] [place] [address], [place] [address] Oct, [facility] [address] [id number] [address] [place] [address], [place] [address] Oct, [facility] [address] [id number] [address] [place] [address], [place] [address] Oct, [facility] [address] [id number] [address] [place] [address], [place] [address] Sep, [facility] [address] [id number] [address] [place] [address], [place] [address] Sep, [facility] [address] [id number] [address] [place] [address], [place] [address] Sep, [facility] [address] [id number] [address] [place] [address], [place] [address] August, [facility] [address] [id number] [address] [place] [address], [place] [address] August, [facility] [address] [id number] [address] [place] [address], [place] [address] Jul, [facility] [address] [id number] [address] [place] [address], [place] [address] Jul, [facility] [address] [id number] [address] [place] [address], [place] [address] Jul, [facility] [address] [id number] [address] [place] [address], [place] [address] Jul, [facility] [address] [id number] [address] [place] [address], [place] [address] Jun, [facility] [address] [id number] [address] [place] [phone] May, [facility] [address] [id number] [address] [place] [address], [place] [address] Apr, [facility] [address] [id number] [address] [place] [id number] Apr, [facility] [address] [id number] [address] [place] [address], [place] [address] Apr, [facility] [address] [id number] [address] [place] [address] Apr, [facility] [address] [id number] [address] [place] [address], [place] [address] Apr, [facility] [address] [id number] [address] [place] [address], [place] [address] Apr, [facility] [address] [id number] [address] [place] [address], [place] [address] Mar, [facility] [address] [id number] [address] [place] [address], [place] [address] Mar, [facility] [address] [id number] [address] [place] [id number] Feb, [facility] [address] [id number] [address] [place] [address], [place] [address] Feb, [facility] [address] [id number] [address] [place] [id number] Feb, [facility] [address] [id number] [address] [place] [phone] Feb, [facility] [address] [id number] [address] [place] [address], [place] [address] Jan, [facility] [address] [id number] [address] [place] [id number] Jan, [facility] [address] [id number] [address] [place] [address], [place] [address] Jan, [facility] [address] [id number] [address] [place] [address], [place] [address] 18 Jan, 2011 [facility] [address] [id number] [address] [place] [address], [place] [address] 17 Nov, 2010 [facility] [address] [id number] [address] [place] [address], [place] [address] Mar, [facility] [address] [id number] [address] [place] [address], [place] [address] Mar, [facility] [address] [id number] [address] [place] [address], [place] [address] 30 Feb, 2010 [facility] [address] [id number] [address] [place] [address], [place] [address] Feb, [facility] [address] [id number] [address] [place] [address], [place] [address] Jan, [facility] [address] [id number] [address] [place] [address], [place] [address] Jan, [facility] [address] [id number] [address] [place] [address], [place] [address] Sep, [facility] [address] [address] [id number] [address] [place] [address], [place] [id number] 16 May, 2009 [facility] [address] [id number] [address] [place] [address], [place] [phone] Apr, [facility] [address] [id number] [address] [place] [address], [place] [phone] Mar, [facility] [address] [id number] [address] [place] [address], [place] [id number] 15 Feb, 2009 [facility] [address] [id number] [address] [place] [address], [place] [id number] Feb, [facility] [address] [id number] [address] [place] [address], [place] [phone] Feb, [facility] [address] [id number] [address] [place] [address], [place] [phone] Jan, [facility] [address] [facility] [id number] [address] [place] [phone] Jan, [facility] [address] [facility] [id number] [address] [place] [phone] Jan, [facility] [address] [facility] [id number] [address] [place] [phone] 11 Jan, 2009 [facility] [address] [facility] [id number] [address] [place] [phone] August, IMMUNIZATIONS No Known Immunizations SOCIAL HISTORY [...] age 6 Hospitalization History surgery Hospitalization History [facility], indeann webber treatment few times for BH
--- OUTSIDE RECORDS SUMMARY | 2019-09-29 10:34 | XMS REPORT ---
Author Author Cameron ALANIZ [facility] Address [address] [place] [address] Care Team Providers Care Senior Reactor Operator Name Role Phone JEET ALANIZ Unavailable PROBLEMS Type Condition ICD9-CM Code [id number] Code Onset Dates Condition S tatus SNOMED Code Problem Adjustment disorder, unspecified type F43.20 Active 80085046 Problem Reactive airway disease, unspecified asthma justin rity, uncomplicated J45.909 Active 879145245937 Problem Hypertensive retinopathy of both eyes H35.033 Active 8838486 Problem Open-angle glaucoma of both eyes, unspecified glaucoma stage, unspecified open-angle glaucoma type H40.10X0 Acti ve 77075169 Problem Essential hypertension I10 Active 10234247 Problem Obstructive sleep apnea G47.33 Active 93316968 Problem Intermittent explosive disorder F63.81 Active 47199734 Problem Type 2 diabetes mellitus with complication E11.8 Active 49808168 Problem Bipolar disorder, in partial remission, most rec ent episode manic F31.73 Active 84268566 Problem Intermittent explosive disorder in adult F63.81 Active 69751659 Problem Bipolar disorder, unspecified F31.9 Active 61072656 Problem Neuropathy G62.9 Active 759927114 Problem Diabetes E11.9 Active 90121826 Problem Other specified urinary incontinence N39.498 Active 411687038 Problem Depression F32.9 Active 08038230 Problem 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 Active 11041840 Problem Mild intellectual disability F70 A ctive 76985936 Problem Reactive airway disease, mild intermittent, uncomplicated J45.20 Active 202611561 Problem Gastroesophageal reflux disease without esophagitis K21.9 Active 263704264 Problem Other diabetic neurological complication associated with type 2 diabetes mellitus E11.49 Active 967522430 ALLERGIES No Information ENCOUNTERS Encounter Location Date Diagnosis [facility] [address] [facility] [id number] [address] [place] [address] August, [facility] [address] [facility] [id number] [address] [place] [id number] Jul, [facility] [address] [facility] [id number] [address] [place] [phone] Jul, [facility] [address] [facility] [id number] [address] [place] [phone] Jun, [facility] [address] [facility] [id number] [address] [place] [phone] Jun, [facility] [address] [facility] [id number] [address] [place] [phone] Jun, Dysuria R30.0 [facility] [address] [facility] [id number] [address] [place] [phone] Jun, [facility] [address] [place] [id number] [address] [place] [phone] May, Influenza J11.1 [facility] [address] [place] [id number] [address] [place] [id number] 13 May, 2019 Intermittent explosive disor salvatore in adult F63.81 [facility] [address] [place] [id number] [address] [place] [phone] May, [facility] [address] [place] [id number] [address] [place] [phone] Apr, Intermittent explosive disor salvatore in adult F63.81 ; Bipolar disorder, unspecified F31.9 and Mild intellectual disability F70 OUTREACH [facility] [address] [facility] [id number] [place] [id number] Apr, Oral health maintenance stat us requiring routine preventive dental care K08.9 [facility] [address] [facility] [id number] [address] [place] [phone] Apr, Type 2 diabetes mellitus wit h complication E11.8 ; History of test for hearing Z92.89 ; Colon cancer screening Z12.11 ; Other specified urinary incontinence N39.498 and Impacted cerumen, right ear H61.21 [facility] [address] [id number] [address] [place] [phone] Apr, Onychomycosis B35.1 ; Other diabetic neurological complication associated with type 2 diabetes mellitus E11.49 and Tinea pedis of both feet B35.3 [facility] [address] [id number] [address] [place] [id number] Feb, [facility] [address] [id number] [address] [place] [phone] Jan, [facility] [address] [id number] [address] [place] [phone] Jan, [facility] [address] [id number] [address] [place] [phone] Jan, [facility] [address] [id number] [address] [place] [phone] Jan, [facility] [address] [id number] [address] [place] [phone] Jan, [facility] [address] [id number] [address] [place] [id number] Jan, [facility] [address] [id number] [address] [place] [phone] Jan, [facility] [address] [id number] [address] [place] [phone] Jan, Anemia D64.9 OUTREACH [facility] [id number] [place] [phone] Jan, Dental examination Z01.20 an d Oral health maintenance status requiring routine preventive dental care K08.9 [facility] [address] [id number] [address] [place] [phone] Jan, Onychomycosis B35.1 and Othe r diabetic neurological complication associated with type 2 diabetes mellitus E11.49 [facility] [address] [id number] [address] [place] [id number] Jan, Anemia D64.9 [facility] [address] [facility] [id number] [address] [place] [phone] Jan, [facility] [address] [facility] [id number] [address] [place] [phone] Dec, Urinary tract infection with out hematuria, site unspecified N39.0 [facility] [address] [facility] [id number] [address] [place] [id number] 30 Dec, 2018 Type 2 diabetes mellitus wit h complication E11.8 ; Urinary tract infection without hematuria, site unspecified N39.0 ; Impacted cerumen of both ears H61.23 ; Encounter for immunization Z23 and Hyponatremia E87.1 [facility] [address] [facility] [id number] [address] [place] [phone] Dec, Intermittent explosive disor salvatore in adult F63.81 ; Dysuria R30.0 ; Type 2 diabetes mellitus with complication E11.8 ; Bipolar disorder, unspecified F31.9 and Mild intellectual disability F70 [facility] [address] [facility] [id number] [address] [place] [phone] Dec, Dysuria R30.0 [facility] [address] [facility] [id number] [address] [place] [phone] Dec, Intermittent explosive disor salvatore in adult F63.81 ; Bipolar disorder, unspecified F31.9 and Mild intellectual disability F70 [facility] [address] [facility] [id number] [address] [place] [phone] Nov, [facility] [address] [facility] [id number] [address] [place] [phone] Oct, OUTREACH [facility] [id number] [place] [phone] Oct, Oral health maintenance stat us requiring routine preventive dental care K08.9 [facility] [address] [facility] [id number] [address] [place] [phone] August, Intermittent explosive disor salvatore in adult F63.81 ; Bipolar disorder, unspecified F31.9 and Mild intellectual disability F70 [facility] [address] [facility] [id number] [address] [place] [address] [id number] August, Dental caries K02.9 [facility] [address] [place] [id number] [address] [place] [id number] Jul, Onychomycosis B35.1 ; Other diabetic neurological complication associated with type 2 diabetes mellitus E11.49 and Tinea pedis of both feet B35.3 [facility] [address] [facility] [id number] [address] [place] [address] [id number] Jul, Caries K02.9 [facility] [address] [phone] Jul, Type 2 diabetes mellitus wit h complication E11.8 ; Tobacco abuse Z72.0 and Bipolar disorder, unspecified F31.9 [facility] [address] [place] [id number] [address] [place] [phone] Jun, [facility] [id number] [place] [id number] Jun, Dental examination Z01.20 an d Oral health maintenance status requiring routine preventive dental care K08.9 [facility] [address] [place] [id number] [address] [place] [phone] May, Bilateral impacted cerumen H 61.23 [facility] [address] [place] [id number] [address] [place] [phone] Apr, Bipolar disorder, unspecifie d F31.9 ; Intermittent explosive disorder in adult F63.81 ; Type 2 diabetes mellitus with complication E11.8 ; Tobacco abuse Z72.0 and Colon cancer screening Z12.11 [facility] [address] [place] [id number] [address] [place] [phone] Apr, Onychomycosis B35.1 and Othe r diabetic neurological complication associated with type 2 diabetes mellitus E11.49 [facility] [address] [place] [id number] [address] [place] [phone] Apr, Intermittent explosive disor salvatore in adult F63.81 ; Bipolar disorder, unspecified F31.9 and Mild intellectual disability F70 [facility] [address] [facility] [id number] [address] [place] [phone] Mar, Diabetes E11.9 [facility] [address] [facility] [id number] [address] [place] [id number] 20 Jan, 2018 Encounter for immunization Z 23 [facility] [address] [facility] [id number] [address] [place] [phone] 12 Jan, 2018 Tinea pedis of both feet B35 .3 ; Other diabetic neurological complication associated with type 2 diabetes mellitus E11.49 and Onychomycosis B35.1 [facility] [address] [facility] [id number] [address] [place] [phone] Nov, Type 2 diabetes mellitus wit h complication E11.8 [place] [address] [facility] [id number] [address] [place] [phone] Nov, [facility] [address] [facility] [id number] [address] [place] [id number] Oct, Intermittent explosive disor salvatore in adult F63.81 ; Bipolar disorder, unspecified F31.9 and Mild intellectual disability F70 [facility] [address] [facility] [id number] [address] [place] [phone] Oct, [facility] [address] [id number] [address] [place] [address] [id number] 11 Oct, 2017 Dental examination Z01.20 [facility] [address] [facility] [id number] [address] [place] [id number] Oct, Onychomycosis B35.1 and Othe r diabetic neurological complication associated with type 2 diabetes mellitus E11.49 [facility] [address] [facility] [id number] [address] [place] [phone] Sep, Type 2 diabetes mellitus wit h complication E11.8 and Colon cancer screening Z12.11 [facility] [address] [facility] [id number] [address] [place] [id number] Sep, Type 2 diabetes mellitus wit h complication E11.8 ; Colon cancer screening Z12.11 and Neuropathy G62.9 [facility] [address] [facility] [id number] [address] [place] [phone] August, Diabetes E11.9 [facility] [address] [id number] [address] [place] [address] [id number] Jul, Dental examination Z01.20 [facility] [address] [facility] [id number] [address] [place] [phone] 27 May, 2017 Mild intellectual disability F70 [place] [address] [phone] May, Mild intellectual disability F70 ; High risk medication use Z79.899 ; Intermittent explosive disorder in adult F63.81 and Bipolar disorder, unspecified F31.9 [place] [address] [place] [phone] May, [place] [address] [place] [id number] [address] [place] [phone] May, [place] [address] [place] [id number] [address] [place] [phone] Apr, Type 2 diabetes mellitus wit h complication E11.8 ; Mild intellectual disability F70 ; Gastroesophageal reflux disease without esophagitis K21.9 ; Reactive airway disease, mild intermittent, uncomplicated J45.20 and Tobacco abuse Z72.0 [place] [address] [facility] [id number] [address] [place] [phone] Apr, High risk medication use Z79 .899 ; Mild intellectual disability F70 ; Intermittent explosive disorder in adult F63.81 and Bipolar disorder, unspecified F31.9 [facility] [address] [place] [id number] [address] [place] [address] [id number] Mar, Encounter for dental exam an d cleaning w/o abnormal findings Z01.20 [facility] [address] [id number] [address] [place] [address] [id number] Mar, Dental examination Z01.20 [facility] [address] [id number] [address] [place] [phone] 12 Jan, 2017 [facility] [address] [id number] [address] [place] [id number] Jan, [facility] [address] [id number] [address] [place] [phone] Jan, Mild intellectual disability F70 ; Bipolar disorder, unspecified F31.9 and Intermittent explosive disorder in adult F63.81 [facility] [address] [id number] [address] [place] [id number] 02 Jan, 2017 Diabetes E11.9 [facility] [address] [id number] [address] [place] [address] [id number] 13 Dec, 2016 Encounter for dental examina tion and cleaning without abnormal findings Z01.20 [facility] [address] [id number] [address] [place] [id number] 12 Dec, 2016 Bipolar disorder, unspecifie d F31.9 ; Intermittent explosive disorder in adult F63.81 and Mild intellectual disability F70 [facility] [address] [id number] [address] [place] [phone] Nov, Diabetes E11.9 [facility] [address] [facility] [id number] [address] [place] [phone] Nov, [facility] [address] [facility] [id number] [address] [place] [phone] Nov, Diabetes E11.9 and Colon can cer screening Z12.11 [facility] [place] [id number] [facility] [id number] [id number] Sep, Dental examination Z01.20 [facility] [address] [id number] [address] [place] [address] [id number] Sep, Encounter for dental examina tion and cleaning without abnormal findings Z01.20 [facility] [address] [id number] [address] [place] [id number] 13 Sep, 2016 Bipolar disorder, unspecifie d F31.9 [facility] [address] [facility] [id number] [address] [place] [phone] 12 Sep, 2016 Bipolar disorder, unspecifie d F31.9 [facility] [address] [facility] [id number] [address] [place] [id number] Jul, [facility] [address] [facility] [id number] [address] [place] [phone] Jul, Type 2 diabetes mellitus wit h complication E11.8 [facility] [address] [place] [id number] [address] [place] [address] [id number] 15 Jun, 2016 Encounter for dental examina tion and cleaning without abnormal findings Z01.20 [place] [address] [facility] [id number] [place] [address] [id number] Jun, Dental examination Z01.20 [facility] [address] [facility] [id number] [address] [place] [phone] Apr, Sports physical Z02.5 [place] [address] [place] [id number] [place] [phone] 14 Mar, 2016 Bipolar disorder, in partial remission, most recent episode manic F31.73 and Intermittent explosive disorder in adult F63.81 [facility] [address] [place] [id number] [address] [place] [id number] 08 Mar, 2016 [facility] [address] [facility] [id number] [address] [place] [phone] 06 Mar, 2016 Diabetes E11.9 [facility] [address] [id number] [address] [place] [address] [id number] 03 Feb, 2016 Encounter for dental examina tion and cleaning without abnormal findings Z01.20 [facility] [address] [facility] [id number] [address] [place] [phone] 22 Dec, 2015 Nocturnal hypoxemia G47.34 a nd Encounter for immunization Z23 [facility] [address] [facility] [id number] [address] [place] [phone] 15 Dec, 2015 [facility] [address] [facility] [id number] [address] [place] [phone] 12 Dec, 2015 [facility] [address] [facility] [id number] [address] [place] [phone] 12 Dec, 2015 Bipolar disorder, unspecifie d F31.9 [facility] [address] [id number] [address] [place] [address] [id number] 13 Oct, 2015 Encounter for dental examina tion and cleaning without abnormal findings Z01.20 [place] [address] [facility] [id number] [place] [address] [id number] 13 Oct, 2015 Dental examination Z01.20 [facility] [address] [place] [id number] [address] [place] [phone] 07 Oct, 2015 Diabetes E11.9 [facility] [address] [id number] 05 Oct, 2015 Diabetes E11.9 ; Reactive ai rway disease, mild intermittent, uncomplicated J45.20 and Tobacco abuse Z72.0 [facility] [address] [id number] 06 Sep, 2015 Bipolar disorder, unspecifie d F31.9 and Depression F32.9 [facility] [address] [phone] Sep, [facility] [address] [address] August, Tinea pedis of both feet B35 .3 and DM w/o complication type II, uncontrolled E11.65 [facility] [address] [address] Jul, [facility] [address] [place] [id number] [place] [phone] Jul, [facility] [address] [id number] Jul, Obstructive sleep apnea G47. 33 [facility] [address] [place] [id number] [address] [place] [id number] Jun, Diabetes E11.9 [facility] [address] [phone] Jun, [facility] [address] [id number] Jun, [facility] [address] [address] Jun, Bipolar disorder, unspecifie d F31.9 and Mental retardation F79 [place] [address] [address] Apr, [place] [address] [address] Feb, Diabetes E11.9 ; Encounter f or immunization Z23 ; Cough R05 and Nicotine abuse Z72.0 [place] [address] [address] Jan, Bipolar disorder, unspecifie d F31.9 and Diabetes mellitus without mention of complication, type II or unspecified type, uncontrolled 250.02 [place] [address] [address] Jan, [place] [address] [address] Dec, Reactive airway disease 493. 90 and Enuresis 788.30 [place] [address] [address] Dec, [place] [address] [id number] Nov, [place] [address] [address] Nov, [place] [address] [address] Nov, Annual physical exam V70.0 ; Urinary incontinence 788.30 ; Diabetes 250.00 and Hypertension 401.9 [facility] [address] [id number] [address] [place] [id number] Oct, Diabetes mellitus without me ntion of complication, type II or unspecified type, uncontrolled 250.02 [facility] [address] [id number] [address] [place] [id number] Oct, Diabetes mellitus without me ntion of complication, type II or unspecified type, uncontrolled 250.02 [facility] [address] [id number] [address] [place] [id number] Oct, Diabetes mellitus without me ntion of complication, type II or unspecified type, uncontrolled 250.02 [facility] [address] [facility] [id number] [address] [place] [id number] Oct, [facility] [address] [id number] [address] [place] [phone] Oct, [facility] [address] [id number] [address] [place] [id number] Oct, Bipolar disorder, unspecifie d 296.80 [facility] [address] [id number] [address] [place] [address] [id number] Sep, Dental examination V72.2 [facility] [address] [id number] [address] [place] [phone] August, [facility] [address] [id number] [address] [place] [address] [id number] August, Dental examination V72.2 [facility] [address] [id number] [address] [place] [id number] August, [facility] [address] [id number] [address] [place] [id number] Jul, [facility] [address] [facility] [id number] [address] [place] [id number] Jul, [facility] [address] [id number] [address] [place] [address], [place] [phone] 17 Jun, 2014 [facility] [address] [id number] [address] [place] [address], [place] [id number] 17 Jun, 2014 [facility] [address] [id number] [address] [place] [address], [place] [id number] 17 Jun, 2014 [facility] [address] [id number] [address] [place] [address], [place] [id number] 17 Jun, 2014 [facility] [address] [id number] [address] [place] [address], [place] [address] 23 May, 2014 [facility] [address] [id number] [address] [place] [address], [place] [address] 23 May, 2014 [facility] [address] [id number] [address] [place] [address], [place] [address] 16 May, 2014 [facility] [address] [id number] [address] [place] [address], [place] [address] 16 May, 2014 [facility] [address] [id number] [address] [place] [address], [place] [address] 16 May, 2014 [facility] [address] [id number] [address] [place] [address], [place] [address] 16 May, 2014 [facility] [address] [id number] [address] [place] [address], [place] [address] 16 May, 2014 [facility] [address] [id number] [address] [place] [address], [place] [address] 16 May, 2014 [facility] [address] [id number] [address] [place] [address], [place] [address] 16 May, 2014 [facility] [address] [id number] [address] [place] [address], [place] [address] 16 May, 2014 [facility] [address] [id number] [address] [place] [address], [place] [address] 16 May, 2014 [facility] [address] [id number] [address] [place] [address], [place] [address] 16 May, 2014 [facility] [address] [id number] [address] [place] [address], [place] [address] May, [facility] [address] [id number] [address] [place] [address], [place] [address] May, [facility] [address] [id number] [address] [place] [address], [place] [address] May, [facility] [address] [id number] [address] [place] [address], [place] [address] Apr, [facility] [address] [id number] [address] [place] [address], [place] [address] Apr, [facility] [address] [id number] [address] [place] [address], [place] [address] Apr, [facility] [address] [id number] [address] [place] [address], [place] [address] Apr, [facility] [address] [id number] [address] [place] [address], [place] [address] Apr, [facility] [address] [id number] [address] [place] [address], [place] [address] Apr, [facility] [address] [id number] [address] [place] [address], [place] [address] Apr, [facility] [address] [id number] [address] [place] [address], [place] [address] Apr, [facility] [address] [id number] [address] [place] [address], [place] [address] Apr, [facility] [address] [id number] [address] [place] [address], [place] [address] Apr, [facility] [address] [id number] [address] [place] [address], [place] [address] Apr, [facility] [address] [id number] [address] [place] [address], [place] [address] Apr, [facility] [address] [id number] [address] [place] [address], [place] [address] Mar, [facility] [address] [id number] [address] [place] [address], [place] [address] Mar, [facility] [address] [id number] [address] [place] [address], [place] [address] Mar, [facility] [address] [id number] [address] [place] [address], [place] [address] Mar, [facility] [address] [id number] [address] [place] [address], [place] [address] Mar, [facility] [address] [id number] [address] [place] [address], [place] [address] Mar, [facility] [address] [id number] [address] [place] [address], [place] [address] Feb, [facility] [address] [id number] [address] [place] [address], [place] [address] Feb, [facility] [address] [id number] [address] [place] [address], [place] [address] Feb, [facility] [address] [id number] [address] [place] [address], [place] [address] Feb, [facility] [address] [id number] [address] [place] [address], [place] [address] 14 Jan, 2014 [facility] [address] [id number] [address] [place] [address], [place] [address] 14 Jan, 2014 [facility] [address] [id number] [address] [place] [address], [place] [address] 14 Jan, 2014 [facility] [address] [id number] [address] [place] [address], [place] [address] 14 Jan, 2014 [facility] [address] [id number] [address] [place] [address], [place] [address] 22 Dec, 2013 [facility] [address] [id number] [facility] [place] [address] Dec, [facility] [address] [id number] [address] [place] [address], [place] [address] Dec, [facility] [address] [id number] [address] [place] [address], [place] [address] Dec, [facility] [address] [id number] [address] [place] [address], [place] [address] Nov, [facility] [address] [id number] [address] [place] [address], [place] [address] Nov, [facility] [address] [id number] [address] [place] [address], [place] [address] Nov, [facility] [address] [id number] [address] [place] [address], [place] [address] Nov, [facility] [address] [id number] [address] [place] [address], [place] [address] Nov, [facility] [address] [id number] [address] [place] [address], [place] [address] Nov, [facility] [address] [id number] [address] [place] [address], [place] [address] Nov, [facility] [address] [id number] [address] [place] [address], [place] [address] Oct, [facility] [address] [id number] [address] [place] [address], [place] [address] Oct, [facility] [address] [id number] [address] [place] [address], [place] [address] Oct, [facility] [address] [id number] [address] [place] [address], [place] [address] Oct, [facility] [address] [id number] [address] [place] [address], [place] [address] Oct, [facility] [address] [id number] [address] [place] [address], [place] [address] Oct, [facility] [address] [id number] [address] [place] [address], [place] [address] Oct, [facility] [address] [id number] [address] [place] [address], [place] [address] Sep, [facility] [address] [id number] [address] [place] [address], [place] [address] Sep, [facility] [address] [id number] [address] [place] [address], [place] [address] Sep, [facility] [address] [id number] [address] [place] [address], [place] [address] Sep, [facility] [address] [id number] [address] [place] [address], [place] [address] Sep, [facility] [address] [id number] [address] [place] [address], [place] [address] Jul, [facility] [address] [id number] [address] [place] [address], [place] [address] Jul, [facility] [address] [id number] [address] [place] [address], [place] [address] Jul, [facility] [address] [id number] [address] [place] [address], [place] [address] Jul, [facility] [address] [id number] [address] [place] [address], [place] [address] Jul, [facility] [address] [id number] [address] [place] [address], [place] [address] Jul, [facility] [address] [id number] [address] [place] [address], [place] [address] Jul, [facility] [address] [id number] [address] [place] [address], [place] [address] Jul, [facility] [address] [id number] [address] [place] [address], [place] [address] Jul, [facility] [address] [id number] [address] [place] [address], [place] [address] Jul, [facility] [address] [id number] [facility] [place] [address] Jul, [facility] [address] [id number] [address] [place] [address], [place] [address] Jul, [facility] [address] [id number] [address] [place] [address], [place] [address] Jun, [facility] [address] [id number] [address] [place] [address], [place] [address] Jun, [facility] [address] [id number] [address] [place] [address], [place] [address] Jun, [facility] [address] [id number] [address] [place] [address], [place] [address] Jun, [facility] [address] [id number] [address] [place] [address], [place] [address] Jun, [facility] [address] [id number] [address] [place] [address], [place] [address] Jun, [facility] [address] [id number] [address] [place] [address], [place] [address] Jun, [facility] [address] [id number] [address] [place] [address], [place] [address] Jun, [facility] [address] [id number] [address] [place] [address], [place] [address] May, [facility] [address] [id number] [address] [place] [address], [place] [address] May, [facility] [address] [id number] [address] [place] [address], [place] [address] May, [facility] [address] [id number] [address] [place] [address], [place] [address] May, [facility] [address] [id number] [address] [place] [address], [place] [address] May, [facility] [address] [id number] [address] [place] [address], [place] [address] May, [facility] [address] [id number] [address] [place] [address], [place] [address] May, [facility] [address] [id number] [address] [place] [address], [place] [address] May, [facility] [address] [id number] [address] [place] [address], [place] [address] Apr, [facility] [address] [id number] [address] [place] [address], [place] [address] Apr, [facility] [address] [id number] [address] [place] [address], [place] [address] Apr, [facility] [address] [id number] [address] [place] [address], [place] [address] Apr, [facility] [address] [id number] [address] [place] [address], [place] [address] Mar, [facility] [address] [id number] [address] [place] [address], [place] [address] Mar, [facility] [address] [id number] [address] [place] [address], [place] [address] Mar, [facility] [address] [id number] [address] [place] [address], [place] [address] Feb, [facility] [address] [id number] [address] [place] [address], [place] [address] Feb, [facility] [address] [id number] [address] [place] [address], [place] [address] Feb, [facility] [address] [id number] [address] [place] [address], [place] [address] Feb, [facility] [address] [id number] [address] [place] [address], [place] [address] Feb, [facility] [address] [id number] [address] [place] [address], [place] [address] Feb, [facility] [address] [id number] [address] [place] [address], [place] [address] Jan, [facility] [address] [id number] [address] [place] [address], [place] [address] Jan, [facility] [address] [id number] [address] [place] [address], [place] [address] Jan, [facility] [address] [id number] [address] [place] [address], [place] [address] Jan, [facility] [address] [id number] [address] [place] [address], [place] [address] Jan, [facility] [address] [id number] [address] [place] [address], [place] [address] Jan, [facility] [address] [id number] [address] [place] [address], [place] [address] Jan, [facility] [address] [id number] [address] [place] [address], [place] [address] Dec, [facility] [address] [id number] [address] [place] [address], [place] [address] 16 Dec, 2012 [facility] [address] [id number] [address] [place] [address], [place] [address] 10 Dec, 2012 [facility] [address] [id number] [address] [place] [address], [place] [address] 05 Dec, 2012 [facility] [address] [id number] [address] [place] [address], [place] [address] Nov, [facility] [address] [id number] [address] [place] [address], [place] [address] Nov, [facility] [address] [id number] [address] [place] [address], [place] [address] Nov, [facility] [address] [id number] [address] [place] [address], [place] [address] Nov, [facility] [address] [id number] [address] [place] [address], [place] [address] Nov, [facility] [address] [id number] [address] [place] [address], [place] [address] Nov, [facility] [address] [id number] [address] [place] [address], [place] [address] Nov, [facility] [address] [id number] [address] [place] [address], [place] [address] Oct, [facility] [address] [id number] [address] [place] [address], [place] [address] Oct, [facility] [address] [id number] [address] [place] [address], [place] [address] Oct, [facility] [address] [id number] [address] [place] [address], [place] [address] Oct, [facility] [address] [id number] [address] [place] [address], [place] [address] Oct, [facility] [address] [id number] [address] [place] [address], [place] [address] Oct, [facility] [address] [id number] [address] [place] [address], [place] [address] Oct, [facility] [address] [id number] [address] [place] [address], [place] [address] Oct, [facility] [address] [id number] [address] [place] [address], [place] [address] Sep, mananzJANAK PEREZ [address] [id number] COFFEY[place] [id number] August, [facility] [address] [id number] [address] [place] [address], [place] [address] August, [facility] [address] [id number] [address] [place] [address], [place] [address] Jul, [facility] [address] [id number] [address] [place] [address], [place] [address] 29 Jul, 2012 [facility] [address] [id number] [address] [place] [address], [place] [address] Jul, [facility] [address] [id number] [address] [place] [address], [place] [address] 22 Jul, 2012 [facility] [address] [id number] [address] [place] [address], [place] [address] 18 Jul, 2012 [facility] [address] [id number] [address] [place] [address], [place] [address] 17 Jul, 2012 [facility] [address] [id number] [address] [place] [address], [place] [address] 16 Jul, 2012 [facility] [address] [id number] [address] [place] [address], [place] [address] Jun, [facility] [address] [id number] [address] [place] [address], [place] [address] Jun, [facility] [address] [id number] [address] [place] [address], [place] [address] Jun, [facility] [address] [id number] [address] [place] [address], [place] [address] Jun, [facility] [address] [id number] [address] [place] [address], [place] [address] Jun, [facility] [address] [id number] [address] [place] [address], [place] [address] May, [facility] [address] [id number] [address] [place] [address], [place] [address] 18 May, 2012 [facility] [address] [id number] [address] [place] [address], [place] [address] 04 May, 2012 [facility] [address] [id number] [address] [place] [address], [place] [address] 15 Apr, 2012 [facility] [address] [id number] [address] [place] [address], [place] [address] 14 Apr, 2012 [facility] [address] [id number] [address] [place] [address], [place] [address] Apr, [facility] [address] [id number] [address] [place] [address], [place] [address] Mar, [facility] [address] [id number] [address] [place] [address], [place] [address] Mar, [facility] [address] [id number] [address] [place] [address], [place] [address] Mar, [facility] [address] [id number] [address] [place] [address], [place] [address] Mar, [facility] [address] [id number] [address] [place] [address], [place] [address] Mar, [facility] [address] [id number] [address] [place] [address], [place] [address] Mar, [facility] [address] [id number] [address] [place] [address], [place] [address] Feb, [facility] [address] [id number] [address] [place] [address], [place] [address] Feb, [facility] [address] [id number] [address] [place] [address], [place] [address] Jan, [facility] [address] [id number] [address] [place] [address], [place] [address] Jan, [facility] [address] [id number] [address] [place] [address], [place] [address] Dec, [facility] [address] [id number] [address] [place] [address], [place] [address] Nov, [facility] [address] [id number] [address] [place] [address], [place] [address] Nov, [facility] [address] [id number] [address] [place] [address], [place] [address] Nov, [facility] [address] [id number] [address] [place] [address], [place] [address] Nov, [facility] [address] [id number] [address] [place] [address], [place] [address] Oct, [facility] [address] [id number] [address] [place] [address], [place] [address] Oct, [facility] [address] [id number] [address] [place] [address], [place] [address] Oct, [facility] [address] [id number] [address] [place] [address], [place] [address] Sep, [facility] [address] [id number] [address] [place] [address], [place] [address] Sep, [facility] [address] [id number] [address] [place] [address], [place] [address] Sep, [facility] [address] [id number] [address] [place] [address], [place] [address] August, [facility] [address] [id number] [address] [place] [address], [place] [address] August, [facility] [address] [id number] [address] [place] [address], [place] [address] Jul, [facility] [address] [id number] [address] [place] [address], [place] [address] Jul, [facility] [address] [id number] [address] [place] [address], [place] [address] Jul, [facility] [address] [id number] [address] [place] [address], [place] [address] Jul, [facility] [address] [id number] [address] [place] [address], [place] [address] Jun, [facility] [address] [id number] [address] [place] [address], [place] [address] May, [facility] [address] [id number] [address] [place] [address], [place] [address] Apr, [facility] [address] [id number] [address] [place] [id number] Apr, [facility] [address] [id number] [address] [place] [address], [place] [address] Apr, [facility] [address] [id number] [address] [place] [address] Apr, [facility] [address] [id number] [address] [place] [address], [place] [address] Apr, [facility] [address] [id number] [address] [place] [address], [place] [address] Apr, [facility] [address] [id number] [address] [place] [address], [place] [address] Mar, [facility] [address] [id number] [address] [place] [address], [place] [address] Mar, [facility] [address] [id number] [address] [place] [id number] Feb, [facility] [address] [id number] [address] [place] [address], [place] [address] Feb, [facility] [address] [id number] [address] [place] [address], [place] [address] Feb, [facility] [address] [id number] [address] [place] [id number] Feb, [facility] [address] [id number] [address] [place] [address], [place] [address] Jan, [facility] [address] [id number] [address] [place] [address] Jan, [facility] [address] [id number] [address] [place] [address], [place] [address] Jan, [facility] [address] [id number] [address] [place] [id number] Jan, [facility] [address] [id number] [address] [place] [id number] Nov, [facility] [address] [id number] [address] [place] [address], [place] [address] 03 Mar, 2010 [facility] [address] [id number] [address] [place] [address], [place] [address] 02 Mar, 2010 [facility] [address] [id number] [address] [place] [address], [place] [address] 30 Feb, 2010 [facility] [address] [id number] [address] [place] [address], [place] [address] 15 Feb, 2010 [facility] [address] [id number] [address] [place] [address], [place] [id number] Jan, [facility] [address] [id number] [address] [place] [address], [place] [address] Jan, [facility] [address] [id number] [address] [place] [address], [place] [address] Sep, [facility] [address] [id number] [address] [place] [address], [place] [id number] 16 May, 2009 [facility] [address] [id number] [address] [place] [address], [place] [address] Apr, [facility] [address] [id number] [address] [place] [address], [place] [id number] Mar, [facility] [address] [id number] [address] [place] [address], [place] [id number] 15 Feb, 2009 [facility] [address] [id number] [address] [place] [address], [place] [id number] 10 Feb, 2009 [facility] [address] [id number] [address] [place] [address], [place] [address] 10 Feb, 2009 [facility] [address] [id number] [address] [place] [address], [place] [address] 22 Jan, 2009 [facility] [address] [id number] [address] [place] [id number] 13 Jan, 2009 [facility] [address] [id number] [address] [place] [id number] 13 Jan, 2009 [facility] [address] [facility] [id number] [address] [address] 11 Jan, 2009 [facility] [address] [facility] [id number] [address] [place] [id number] August, IMMUNIZATIONS No Known Immunizations SOCIAL HISTORY [...] 7 Hospitalization History surgery Hospitalization History [facility], [facility] treatment few times for BH
--- OUTSIDE RECORDS SUMMARY | 2019-09-29 10:35 | XMS REPORT ---
Author Author Cameron Kothari [facility] Address [address] [place] [address] Care Team Providers Care [facility] Manager Name Role Phone Taye JULISA Unavailable PROBLEMS Type Condition ICD9-CM Code EUT40-BW Code Onset Dates Condition S tatus SNOMED Code Problem Adjustment disorder, unspecified type F43.20 Active 09498793 Problem Reactive airway disease, unspecified asthma justin rity, uncomplicated J45.909 Active 603749978320 Problem Hypertensive retinopathy of both eyes H35.033 Active 4608141 Problem Open-angle glaucoma of both eyes, unspecified glaucoma stage, unspecified open-angle glaucoma type H40.10X0 Acti ve 06459701 Problem Essential hypertension I10 Active 90739367 Problem Obstructive sleep apnea G47.33 Active 41160182 Problem Intermittent explosive disorder F63.81 Active 32111142 Problem Type 2 diabetes mellitus with complication E11.8 Active 48884716 Problem Bipolar disorder, in partial remission, most rec ent episode manic F31.73 Active 81804419 Problem Intermittent explosive disorder in adult F63.81 Active 32806647 Problem Bipolar disorder, unspecified F31.9 Active 99136296 Problem Neuropathy G62.9 Active 545762768 Problem Diabetes E11.9 Active 48969233 Problem Other specified urinary incontinence N39.498 Active 903881943 Problem Depression F32.9 Active 96621244 Problem 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 Active 38455215 Problem Mild intellectual disability F70 A ctive 72490165 Problem Reactive airway disease, mild intermittent, uncomplicated J45.20 Active 822081464 Problem Gastroesophageal reflux disease without esophagitis K21.9 Active 803562729 Problem Other diabetic neurological complication associated with type 2 diabetes mellitus E11.49 Active 765617065 ALLERGIES No Information ENCOUNTERS Encounter Location Date Diagnosis [facility] [address] [id number] [place] [address] August, [facility] [id number] [place] [address] Jul, [facility] [id number] [place] [address] Jul, [facility] [id number] [place] [address] Jun, [facility] [address] [place] [address] Jun, [facility] [address] [facility] [id number] [address] [place] [address] 04 Jun, 2019 Dysuria R30.0 [facility] [id number] [place] [address] 02 Jun, 2019 [facility] [id number] [place] [address] 20 May, 2019 Influenza J11.1 [facility] [id number] [place] [address] 13 May, 2019 Intermittent explosive disorder in adult F63.81 [facility] [id number] [place] [address] 12 May, 2019 [facility] [id number] [place] [address] Apr, Intermittent explosive disorder in adult F63.81 ; Bipolar disorder, unspecified F31.9 and Mild intellectual disability F70 [facility] [address] [facility] [address] [id number] [address] Apr, Oral health maintenance stat us requiring routine preventive dental care K08.9 [facility] [address] [place] [address] Apr, Type 2 diabetes mellitus with complicati on E11.8 ; History of test for hearing Z92.89 ; Colon cancer screening Z12.11 ; Other specified urinary incontinence N39.498 and Impacted cerumen, right ear H61.21 [facility] [id number] [place] [address] Apr, Onychomycosis B35.1 ; Other diabetic luc rological complication associated with type 2 diabetes mellitus E11.49 and Tinea pedis of both feet B35.3 [facility] [id number] [place] [address] Feb, [facility] [address] [address] Jan, [facility] [address] [address] Jan, [facility] [address] [address] Jan, [facility] [address] [address] Jan, [facility] [address] [address] Jan, [facility] [address] [address] Jan, [facility] [address] [address] Jan, [facility] [address] [address] Jan, Anemia D64.9 [facility] [address] [facility] [address] [id number] [address] Jan, Dental examination Z01.20 an d Oral health maintenance status requiring routine preventive dental care K08.9 [facility] [id number] [place] [address] Jan, Onychomycosis B35.1 and Other diabetic n eurological complication associated with type 2 diabetes mellitus E11.49 [facility] [address] [address] Jan, Anemia D64.9 [facility] [address] [address] Jan, [facility] [address] [address] Dec, Urinary tract infection without hematuri a, site unspecified N39.0 [facility] [address] [address] 30 Dec, 2018 Type 2 diabetes mellitus with complicati on E11.8 ; Urinary tract infection without hematuria, site unspecified N39.0 ; Impacted cerumen of both ears H61.23 ; Encounter for immunization Z23 and Hyponatremia E87.1 [place] [address] [address] Dec, Intermittent explosive disorder in adult F63.81 ; Dysuria R30.0 ; Type 2 diabetes mellitus with complication E11.8 ; Bipolar disorder, unspecified F31.9 and Mild intellectual disability F70 [place] [address] [address] Dec, Dysuria R30.0 [place] [address] [address] Dec, Intermittent explosive disorder in adult F63.81 ; Bipolar disorder, unspecified F31.9 and Mild intellectual disability F70 [place] [address] [place] [address] Nov, [place] [address] [address] Oct, [facility] [address] [id number] [place] [address] Oct, Oral health maintenance stat us requiring routine preventive dental care K08.9 [facility] [address] [address] August, Intermittent explosive disorder in adult F63.81 ; Bipolar disorder, unspecified F31.9 and Mild intellectual disability F70 [facility] [address] [facility] [id number] [place] [id number] August, Dental caries K02.9 [facility] [address] [address] Jul, Onychomycosis B35.1 ; Other diabetic luc rological complication associated with type 2 diabetes mellitus E11.49 and Tinea pedis of both feet B35.3 [facility] [address] [id number] Jul, Caries K02.9 [place] [address] [address] Jul, Type 2 diabetes mellitus with complicati on E11.8 ; Tobacco abuse Z72.0 and Bipolar disorder, unspecified F31.[address] [address] Jun, [facility] [address] [id number] Jun, Dental examination Z01.20 and Oral healt h maintenance status requiring routine preventive dental care K08.9 [place] [address] [address] May, Bilateral impacted cerumen H61.[address] [address] Apr, Bipolar disorder, unspecified F31.9 ; In termittent explosive disorder in adult F63.81 ; Type 2 diabetes mellitus with complication E11.8 ; Tobacco abuse Z72.0 and Colon cancer screening Z12.11 [place] [address] [address] Apr, Onychomycosis B35.1 and Other diabetic n eurological complication associated with type 2 diabetes mellitus E11.[address] [address] Apr, Intermittent explosive disorder in adult F63.81 ; Bipolar disorder, unspecified F31.9 and Mild intellectual disability F70 [address] [address] Mar, Diabetes E11.9 [facility] [address] [facility] [id number] [address] [place] [address] Jan, Encounter for immunization Z 23 [place] [address] [address] 12 Jan, 2018 Tinea pedis of both feet B35.3 ; Other d iabetic neurological complication associated with type 2 diabetes mellitus E11.49 and Onychomycosis B35.1 [place] [address] [address] Nov, Type 2 diabetes mellitus with complicati on E11.8 [place] [address] [address] Nov, [place] [address] [address] Oct, Intermittent explosive disorder in adult F63.81 ; Bipolar disorder, unspecified F31.9 and Mild intellectual disability F70 [place] [address] [address] Oct, [facility] [address] [id number] Oct, Dental examination Z01.20 [place] [address] [address] Oct, Onychomycosis B35.1 and Other diabetic n eurological complication associated with type 2 diabetes mellitus E11.49 [place] [address] [address] Sep, Type 2 diabetes mellitus with complicati on E11.8 and Colon cancer screening Z12.11 [place] [address] [address] Sep, Type 2 diabetes mellitus with complicati on E11.8 ; Colon cancer screening Z12.11 and Neuropathy G62.9 [place] [address] [address] August, Diabetes E11.9 [facility] [address] [id number] Jul, Dental examination Z01.20 [facility] [address] [address] May, Mild intellectual disability F70 [facility] [address] [address] May, Mild intellectual disability F70 ; High risk medication use Z79.899 ; Intermittent explosive disorder in adult F63.81 and Bipolar disorder, unspecified F31.9 [facility] [address] [address] May, [facility] [address] [address] May, [facility] [address] [address] Apr, Type 2 diabetes mellitus with complicati on E11.8 ; Mild intellectual disability F70 ; Gastroesophageal reflux disease without esophagitis K21.9 ; Reactive airway disease, mild intermittent, uncomplicated J45.20 and Tobacco abuse Z72.0 [facility] [address] [address] Apr, High risk medication use Z79.899 ; Mild intellectual disability F70 ; Intermittent explosive disorder in adult F63.81 and Bipolar disorder, unspecified F31.9 [facility] [address] [id number] Mar, Encounter for dental exam and cleaning w /o abnormal findings Z01.20 [facility] [address] [id number] Mar, Dental examination Z01.20 [facility] [address] [address] Jan, [facility] [address] [address] Jan, [facility] [address] [address] Jan, Mild intellectual disability F70 ; Bipol ar disorder, unspecified F31.9 and Intermittent explosive disorder in adult F63.81 [facility] [address] [address] 02 Jan, 2017 Diabetes E11.9 [facility] [address] [id number] [place] [id number] 13 Dec, 2016 Encounter for dental examination and osei aning without abnormal findings Z01.20 [facility] [address] [address] 12 Dec, 2016 Bipolar disorder, unspecified F31.9 ; In termittent explosive disorder in adult F63.81 and Mild intellectual disability F70 [facility] [address] [address] Nov, Diabetes E11.9 [facility] [address] [address] Nov, [facility] [address] [address] Nov, Diabetes E11.9 and Colon cancer screenin g Z12.[address] [id number] [id number] Sep, Dental examination Z01.20 [facility] [id number] [place] [id number] 21 Sep, 2016 Encounter for dental examination and osei aning without abnormal findings Z01.20 [facility] [address] [address] 13 Sep, 2016 Bipolar disorder, unspecified F31.9 [facility] [address] [address] Sep, Bipolar disorder, unspecified F31.9 [facility] [address] [address] Jul, [facility] [address] [address] Jul, Type 2 diabetes mellitus with complicati on E11.8 [facility] [address] [id number] 15 Jun, 2016 Encounter for dental examination and osei aning without abnormal findings Z01.20 [facility] [address] [id number] [id number] 15 Jun, 2016 Dental examination Z01.20 [facility] [address] [address] 18 Apr, 2016 Sports physical Z02.5 [facility] [address] [place] [address] 14 Mar, 2016 Bipolar disorder, in partial remission, most recent episode manic F31.73 and Intermittent explosive disorder in adult F63.81 [facility] [address] [address] 08 Mar, 2016 [facility] [address] [address] 06 Mar, 2016 Diabetes E11.9 [facility] [address] [id number] Feb, Encounter for dental examination and osei aning without abnormal findings Z01.20 [facility] [address] [address] 22 Dec, 2015 Nocturnal hypoxemia G47.34 and Encounter for immunization Z23 [facility] [address] [address] 15 Dec, 2015 [facility] [address] [address] Dec, [facility] [address] [address] Dec, Bipolar disorder, unspecified F31.9 [facility] [address] [id number] Oct, Encounter for dental examination and osei aning without abnormal findings Z01.20 [facility] [address] [id number] [id number] Oct, Dental examination Z01.20 [place] [address] [address] Oct, Diabetes E11.9 [place] [address] [address] Oct, Diabetes E11.9 ; Reactive airway disease , mild intermittent, uncomplicated J45.20 and Tobacco abuse Z72.0 [place] [address] [address] Sep, Bipolar disorder, unspecified F31.9 and Depression F32.9 [place] [address] [address] Sep, [place] [address] [address] August, Tinea pedis of both feet B35.3 and DM w/ o complication type II, uncontrolled E11.65 [place] [address] [address] Jul, [place] [address] [address] Jul, [place] [address] [address] Jul, Obstructive sleep apnea G47.33 [place] [address] [address] Jun, Diabetes E11.9 [place] [address] [address] Jun, [place] [address] [address] Jun, [place] [address] [address] Jun, Bipolar disorder, unspecified F31.9 and Mental retardation F79 [place] [address] [address] Apr, [place] [address] [address] Feb, Diabetes E11.9 ; Encounter for immunizat ion Z23 ; Cough R05 and Nicotine abuse Z72.[address] [address] Jan, Bipolar disorder, unspecified F31.9 and Diabetes mellitus without mention of complication, type II or unspecified type, uncontrolled 250.[address] [address] Jan, [address] [address] Dec, Reactive airway disease 493.90 and Enure sis 788.[address] [address] Dec, [address] [address] Nov, [address] [address] Nov, [address] [address] Nov, Annual physical exam V70.0 ; Urinary inc ontinence 788.30 ; Diabetes 250.00 and Hypertension 401.[address] [address] Oct, Diabetes mellitus without mention of com plication, type II or unspecified type, uncontrolled 250.[address] [address] Oct, Diabetes mellitus without mention of com plication, type II or unspecified type, uncontrolled 250.[address] [address] Oct, Diabetes mellitus without mention of com plication, type II or unspecified type, uncontrolled 250.[address] [address] Oct, [address] [place] [id number] [place] [address] Oct, [facility] [id number] [place] [address] Oct, Bipolar disorder, unspecified 296.80 [facility] [address] [facility] [place] [id number] Sep, Dental examination V72.2 [facility] [id number] [place] [address] August, [facility] [address] [id number] [place] [id number] August, Dental examination V72.2 [facility] [id number] [place] [address] August, [facility] [id number] [place] [address] Jul, [facility] [id number] [place] [address] Jul, [facility] [id number] [place] [address] Jun, [facility] [id number] [place] [address] Jun, [facility] [id number] [place] [address] Jun, [facility] [id number] [place] [address] Jun, [facility] [id number] [place] [address] May, [facility] [id number] [place] [address] May, [facility] [id number] [place] [address] May, [facility] [id number] [place] [address] May, [facility] [address] [id number] [place] [address] 16 May, 2014 [facility] [address] [id number] [place] [address] May, 2014 [facility] [address] [id number] [place] [address] 16 May, 2014 [facility] [address] [id number] [place] [address] May, 2014 [facility] [address] [id number] [place] [address] May, 2014 [facility] [address] [id number] [place] [address] May, 2014 [facility] [address] [id number] [place] [address] May, 2014 [facility] [address] [id number] [place] [address] May, 2014 [facility] [address] [id number] [place] [address] May, 2014 [facility] [address] [id number] [place] [address] May, 2014 [facility] [address] [id number] [place] [address] May, 2014 [facility] [address] [id number] [place] [address] Apr, [facility] [address] [id number] [place] [address] Apr, [facility] [address] [id number] [place] [address] Apr, [facility] [address] [id number] [place] [address] Apr, [facility] [address] [id number] [place] [address] Apr, [facility] [address] [id number] [facility] [place] [address] Apr, [facility] [address] [facility] [id number] [place] [address] Apr, [facility] [address] [id number] [place] [address] Apr, [facility] [address] [id number] [place] [address] Apr, [facility] [address] [id number] [place] [address] Apr, [facility] [address] [id number] [place] [address] Apr, [facility] [address] [id number] [place] [address] Apr, [facility] [address] [id number] [place] [address] Mar, [facility] [address] [id number] [place] [address] Mar, [facility] [address] [id number] [place] [address] Mar, [facility] [address] [id number] [place] [address] Mar, [facility] [address] [id number] [place] [address] Mar, [facility] [address] [id number] [place] [address] Mar, [facility] [address] [id number] [place] [address] Feb, [facility] [address] [id number] [place] [address] Feb, [facility] [address] [id number] [place] [address] Feb, [facility] [address] [id number] [place] [address] Feb, [facility] [address] [id number] [place] [address] 14 Jan, 2014 [facility] [address] [facility] [id number] [place] [address] 14 Jan, 2014 [facility] [address] [id number] [place] [address] 14 Jan, 2014 [facility] [address] [id number] [place] [address] 14 Jan, 2014 [facility] [address] [facility] [id number] [place] [address] Dec, [facility] [address] [facility] [id number] [place] [address] Dec, [facility] [address] [id number] [place] [address] 15 Dec, 2013 [facility] [address] [id number] [place] [address] Dec, [facility] [address] [id number] [place] [address] Nov, [facility] [address] [id number] [place] [address] Nov, [facility] [address] [id number] [place] [address] Nov, [facility] [address] [id number] [place] [address] Nov, [facility] [address] [id number] [place] [address] Nov, [facility] [address] [facility] [id number] [place] [address] Nov, [facility] [address] [id number] [place] [address] Nov, [facility] [place] [facility] [address] [id number] [place] [address] Oct, [facility] [place] [facility] [address] [id number] [place] [address] Oct, [facility] [place] [facility] [address] [id number] [place] [address] Oct, [facility] [place] [facility] [address] [id number] [place] [address] Oct, [facility] [place] [facility] [address] [facility] [id number] [place] [address] Oct, [facility] [place] [facility] [address] [id number] [place] [address] Oct, [facility] [place] [facility] [address] [facility] [id number] [place] [address] Oct, [facility] [place] [facility] [address] [id number] [place] [address] Sep, [facility] [place] [facility] [address] [facility] [id number] [place] [address] Sep, [facility] [place] [facility] [address] [id number] [place] [address] Sep, [facility] [place] [facility] [address] [facility] [id number] [place] [address] Sep, [facility] [place] [facility] [address] [id number] [place] [address] Sep, [facility] [place] [facility] [address] [id number] [place] [address] Jul, [facility] [place] [facility] [address] [id number] [place] [address] Jul, [facility] [place] [facility] [address] [facility] [id number] [place] [address] Jul, [facility] [place] [facility] [address] [id number] [place] [address] Jul, [facility] [place] [facility] [address] [facility] [id number] [place] [address] Jul, [facility] [place] [facility] [address] [id number] [place] [address] Jul, [facility] [place] [facility] [address] [id number] [place] [address] Jul, [facility] [address] [facility] [id number] [place] [address] Jul, [facility] [address] [facility] [id number] [place] [address] Jul, [facility] [address] [id number] [place] [address] Jul, [facility] [address] [id number] [place] [address] Jul, [facility] [address] [facility] [id number] [place] [address] Jul, [facility] [address] [id number] [place] [address] Jun, [facility] [address] [id number] [place] [address] Jun, [facility] [address] [id number] [place] [address] Jun, [facility] [address] [id number] [place] [address] Jun, [facility] [address] [id number] [place] [address] Jun, [facility] [address] [id number] [place] [address] Jun, [facility] [address] [id number] [place] [address] Jun, [facility] [address] [facility] [id number] [place] [address] Jun, [facility] [address] [id number] [place] [address] May, [facility] [address] [id number] [place] [address] May, [facility] [address] [id number] [place] [address] May, [facility] [address] [id number] [place] [address] May, [facility] [address] [id number] [place] [address] May, [facility] [address] [id number] [place] [address] May, [facility] [address] [id number] [place] [address] May, [facility] [address] [id number] [place] [address] May, [facility] [address] [id number] [place] [address] Apr, [facility] [address] [id number] [place] [address] Apr, [facility] [address] [id number] [place] [address] Apr, [facility] [address] [id number] [place] [address] Apr, [facility] [address] [id number] [place] [address] Mar, [facility] [address] [id number] [place] [address] Mar, [facility] [address] [id number] [place] [address] Mar, [facility] [address] [id number] [place] [address] Feb, [facility] [address] [id number] [place] [address] Feb, [facility] [address] [id number] [place] [address] Feb, [facility] [address] [id number] [place] [address] Feb, [facility] [address] [id number] [place] [address] Feb, [facility] [address] [facility] [id number] [place] [address] Feb, [facility] [address] [facility] [id number] [place] [address] Jan, [facility] [address] [id number] [place] [address] Jan, [facility] [address] [id number] [place] [address] Jan, [facility] [address] [facility] [id number] [place] [address] Jan, [facility] [address] [id number] [place] [address] Jan, [facility] [address] [id number] [place] [address] Jan, [facility] [address] [id number] [place] [address] Jan, [facility] [address] [id number] [place] [address] Dec, [facility] [address] [id number] [place] [address] 16 Dec, 2012 [facility] [address] [id number] [place] [address] 10 Dec, 2012 [facility] [address] [id number] [place] [address] 05 Dec, 2012 [facility] [address] [facility] [id number] [place] [address] Nov, [facility] [address] [id number] [place] [address] Nov, [facility] [address] [id number] [place] [address] Nov, [facility] [address] [id number] [place] [address] Nov, [facility] [address] [id number] [place] [address] Nov, [facility] [address] [id number] [place] [address] Nov, [facility] [address] [id number] [place] [address] Nov, [facility] [address] [id number] [place] [address] Oct, [facility] [address] [id number] [place] [address] Oct, [facility] [address] [id number] [place] [address] Oct, [facility] [address] [id number] [place] [address] Oct, [facility] [address] [id number] [place] [address] Oct, [facility] [address] [id number] [place] [address] Oct, [facility] [address] [id number] [place] [address] Oct, [facility] [address] [id number] [place] [address] Oct, [facility] [address] [id number] [place] [address] Sep, [facility] [id number] [place] [id number] August, [facility] [address] [id number] [place] [address] August, [facility] [address] [id number] [place] [address] Jul, [facility] [address] [id number] [place] [address] Jul, [facility] [address] [id number] [place] [address] 25 Jul, 2012 [facility] [address] [id number] [place] [address] Jul, [facility] [address] [id number] [place] [address] 18 Jul, 2012 [facility] [address] [id number] [place] [address] 17 Jul, 2012 [facility] [address] [id number] [place] [address] 16 Jul, 2012 [facility] [address] [id number] [place] [address] Jun, [facility] [address] [id number] [place] [address] Jun, [facility] [address] [id number] [place] [address] Jun, [facility] [address] [id number] [place] [address] Jun, [facility] [address] [id number] [place] [address] Jun, [facility] [address] [id number] [place] [address] May, [facility] [address] [id number] [place] [address] 18 May, 2012 [facility] [address] [id number] [place] [address] 04 May, 2012 [facility] [address] [id number] [place] [address] 15 Apr, 2012 [facility] [address] [id number] [place] [address] 14 Apr, 2012 [facility] [address] [id number] [place] [address] 07 Apr, 2012 [facility] [address] [id number] [place] [address] Mar, [facility] [address] [id number] [place] [address] 31 Mar, 2012 [facility] [address] [id number] [place] [address] Mar, [facility] [address] [id number] [place] [address] Mar, [facility] [address] [id number] [place] [address] Mar, [facility] [address] [id number] [place] [address] Mar, [facility] [address] [id number] [place] [address] Feb, [facility] [address] [id number] [place] [address] Feb, [facility] [address] [id number] [place] [address] Jan, [facility] [address] [id number] [place] [address] Jan, [facility] [address] [id number] [place] [address] Dec, [facility] [address] [id number] [place] [address] Nov, [facility] [address] [id number] [place] [address] Nov, [facility] [address] [id number] [place] [address] Nov, [facility] [address] [id number] [place] [address] Nov, [facility] [address] [id number] [place] [address] Oct, [facility] [address] [id number] [place] [address] Oct, [facility] [address] [id number] [place] [address] Oct, [facility] [address] [id number] [place] [address] Sep, [facility] [address] [id number] [place] [address] Sep, [facility] [address] [id number] [place] [address] Sep, [facility] [address] [id number] [place] [address] August, [facility] [address] [id number] [place] [address] August, [facility] [address] [id number] [place] [address] Jul, [facility] [address] [id number] [place] [address] Jul, [facility] [id number] [place] [address] Jul, [facility] [address] [id number] [place] [address] Jul, [facility] [address] [id number] [place] [address] Jun, [facility] [address] [id number] [place] [address] May, [facility] [address] [id number] [place] [address] Apr, [facility] [address] [id number] [place] [address] Apr, [facility] [address] [id number] [place] [address] Apr, [facility] [address] [id number] [place] [address] Apr, [facility] [address] [id number] [place] [address] Apr, [facility] [address] [id number] [place] [address] Apr, [facility] [address] [id number] [place] [address] Mar, [facility] [address] [id number] [place] [address] Mar, [facility] [address] [id number] [place] [address] Feb, [facility] [address] [id number] [place] [address] Feb, [facility] [address] [id number] [place] [address] Feb, [facility] [address] [id number] [place] [address] Feb, [facility] [address] [id number] [place] [address] Jan, [facility] [address] [id number] [place] [address] Jan, [facility] [address] [id number] [place] [address] Jan, [facility] [address] [id number] [place] [address] Jan, [facility] [address] [id number] [place] [address] Nov, [facility] [address] [id number] [place] [address] Mar, [facility] [address] [id number] [place] [address] Mar, [facility] [address] [id number] [place] [address] 30 Feb, 2010 [facility] [address] [id number] [place] [address] 15 Feb, 2010 [facility] [address] [id number] [place] [address] 19 Jan, 2010 [facility] [id number] [place] [address] 19 Jan, 2010 [facility] [id number] [place] [address] 15 Sep, 2009 [facility] [id number] [place] [address] 16 May, 2009 [facility] [id number] [place] [address] Apr, [facility] [address] [address] Mar, [facility] [address] [address] Feb, [facility] [address] [address] Feb, [facility] [address] [address] Feb, [facility] [address] [address] Jan, [facility] [address] [address] Jan, [facility] [address] [address] Jan, [facility] [id number] [place] [address] Jan, [facility] [address] [address] August, IMMUNIZATIONS No Known Immunizations SOCIAL HISTORY [...] age 6 Hospitalization History surgery Hospitalization History [facility], insd akbar treatment few times for BH
--- OUTSIDE RECORDS SUMMARY | 2019-09-29 10:35 | XMS REPORT ---
Author Author Cameron ALANIZ [facility] Address [address] [place] [address] Care Team Providers Care Student Life Advisor Name Role Phone JEET ALANIZ Unavailable PROBLEMS Type Condition ICD9-CM Code PUN40-IM Code Onset Dates Condition S tatus SNOMED Code Problem Adjustment disorder, unspecified type F43.20 Active 94825515 Problem Reactive airway disease, unspecified asthma justin rity, uncomplicated J45.909 Active 057768754660 Problem Hypertensive retinopathy of both eyes H35.033 Active 9419647 Problem Open-angle glaucoma of both eyes, unspecified glaucoma stage, unspecified open-angle glaucoma type H40.10X0 Acti ve 56392784 Problem Essential hypertension I10 Active 80667074 Problem Obstructive sleep apnea G47.33 Active 70643419 Problem Intermittent explosive disorder F63.81 Active 22917561 Problem Type 2 diabetes mellitus with complication E11.8 Active 66703864 Problem Bipolar disorder, in partial remission, most rec ent episode manic F31.73 Active 13960429 Problem Intermittent explosive disorder in adult F63.81 Active 90222740 Problem Bipolar disorder, unspecified F31.9 Active 09271634 Problem Neuropathy G62.9 Active 267673825 Problem Diabetes E11.9 Active 33548068 Problem Other specified urinary incontinence N39.498 Active 330465116 Problem Depression F32.9 Active 93713285 Problem 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 Active 82814641 Problem Mild intellectual disability F70 A ctive 86558204 Problem Reactive airway disease, mild intermittent, uncomplicated J45.20 Active 412513514 Problem Gastroesophageal reflux disease without esophagitis K21.9 Active 962048998 Problem Other diabetic neurological complication associated with type 2 diabetes mellitus E11.49 Active 428357996 ALLERGIES No Information ENCOUNTERS Encounter Location Date Diagnosis [facility] [address] [facility] [id number] [address] [place] [address] August, [facility] [address] [facility] [id number] [address] [place] [id number] Jul, [facility] [address] [facility] [id number] [address] [place] [phone] Jul, [facility] [address] [facility] [id number] [address] [place] [id number] Jun, [facility] [address] [facility] [id number] [address] [place] [id number] Jun, [facility] [address] [facility] [id number] [address] [place] [id number] Jun, Dysuria R30.0 [facility] [address] [facility] [id number] [address] [place] [id number] Jun, [facility] [address] [place] [id number] [address] [place] [phone] May, Influenza J11.1 [facility] [address] [place] [id number] [address] [place] [id number] 13 May, 2019 Intermittent explosive disor salvatore in adult F63.81 [facility] [address] [place] [id number] [address] [place] [id number] May, [facility] [address] [place] [id number] [address] [place] [id number] Apr, Intermittent explosive disor salvatore in adult F63.81 ; Bipolar disorder, unspecified F31.9 and Mild intellectual disability F70 [facility] [address] [facility] [id number] [place] [phone] Apr, Oral health maintenance stat us requiring routine preventive dental care K08.9 [facility] [address] [facility] [id number] [address] [place] [id number] Apr, Type 2 diabetes mellitus wit h complication E11.8 ; History of test for hearing Z92.89 ; Colon cancer screening Z12.11 ; Other specified urinary incontinence N39.498 and Impacted cerumen, right ear H61.21 [facility] [address] [id number] [address] [place] [id number] Apr, Onychomycosis B35.1 ; Other diabetic neurological complication associated with type 2 diabetes mellitus E11.49 and Tinea pedis of both feet B35.3 [facility] [address] [id number] [address] [place] [id number] Feb, [facility] [address] [id number] [address] [place] [id number] Jan, [facility] [address] [id number] [address] [place] [id number] Jan, [facility] [address] [id number] [address] [place] [id number] Jan, [facility] [address] [id number] [address] [place] [id number] Jan, [facility] [address] [id number] [address] [place] [phone] Jan, [facility] [address] [id number] [address] [place] [id number] Jan, [facility] [address] [id number] [address] [place] [id number] Jan, [facility] [address] [id number] [address] [place] [id number] Jan, Anemia D64.9 [facility] [id number] [place] [id number] Jan, Dental examination Z01.20 an d Oral health maintenance status requiring routine preventive dental care K08.9 [facility] [address] [id number] [address] [place] [phone] Jan, Onychomycosis B35.1 and Othe r diabetic neurological complication associated with type 2 diabetes mellitus E11.49 [facility] [address] [id number] [address] [place] [id number] Jan, Anemia D64.9 [facility] [address] [facility] [id number] [address] [place] [id number] Jan, [facility] [address] [facility] [id number] [address] [place] [phone] Dec, Urinary tract infection with out hematuria, site unspecified N39.0 [facility] [address] [facility] [id number] [address] [place] [id number] 30 Dec, 2018 Type 2 diabetes mellitus wit h complication E11.8 ; Urinary tract infection without hematuria, site unspecified N39.0 ; Impacted cerumen of both ears H61.23 ; Encounter for immunization Z23 and Hyponatremia E87.1 [facility] [address] [facility] [id number] [address] [place] [phone] Dec, Intermittent explosive disor salvatore in adult F63.81 ; Dysuria R30.0 ; Type 2 diabetes mellitus with complication E11.8 ; Bipolar disorder, unspecified F31.9 and Mild intellectual disability F70 [facility] [address] [facility] [id number] [address] [place] [id number] Dec, Dysuria R30.0 [facility] [address] [facility] [id number] [address] [place] [id number] Dec, Intermittent explosive disor salvatore in adult F63.81 ; Bipolar disorder, unspecified F31.9 and Mild intellectual disability F70 [facility] [address] [facility] [id number] [address] [place] [id number] Nov, [facility] [address] [facility] [id number] [address] [place] [id number] Oct, [facility] [id number] [place] [id number] Oct, Oral health maintenance stat us requiring routine preventive dental care K08.9 [facility] [address] [facility] [id number] [address] [place] [id number] August, Intermittent explosive disor salvatore in adult F63.81 ; Bipolar disorder, unspecified F31.9 and Mild intellectual disability F70 [facility] [address] [facility] [id number] [address] [place] [address] [id number] August, Dental caries K02.9 [facility] [address] [place] [id number] [address] [place] [id number] Jul, Onychomycosis B35.1 ; Other diabetic neurological complication associated with type 2 diabetes mellitus E11.49 and Tinea pedis of both feet B35.3 [facility] [address] [facility] [id number] [address] [place] [address] [id number] Jul, Caries K02.9 [facility] [address] [phone] Jul, Type 2 diabetes mellitus wit h complication E11.8 ; Tobacco abuse Z72.0 and Bipolar disorder, unspecified F31.9 [facility] [address] [place] [id number] [address] [place] [id number] Jun, [facility] [id number] [place] [address] [id number] Jun, Dental examination Z01.20 an d Oral health maintenance status requiring routine preventive dental care K08.9 [facility] [address] [place] [id number] [address] [place] [id number] May, Bilateral impacted cerumen H 61.23 [facility] [address] [place] [id number] [address] [place] [id number] Apr, Bipolar disorder, unspecifie d F31.9 ; Intermittent explosive disorder in adult F63.81 ; Type 2 diabetes mellitus with complication E11.8 ; Tobacco abuse Z72.0 and Colon cancer screening Z12.11 [facility] [address] [place] [id number] [address] [place] [phone] Apr, Onychomycosis B35.1 and Othe r diabetic neurological complication associated with type 2 diabetes mellitus E11.49 [facility] [address] [place] [id number] [address] [place] [id number] Apr, Intermittent explosive disor salvatore in adult F63.81 ; Bipolar disorder, unspecified F31.9 and Mild intellectual disability F70 [facility] [address] [facility] [id number] [address] [place] [id number] Mar, Diabetes E11.9 [facility] [address] [facility] [id number] [address] [place] [phone] 20 Jan, 2018 Encounter for immunization Z 23 [facility] [address] [facility] [id number] [address] [place] [id number] 12 Jan, 2018 Tinea pedis of both feet B35 .3 ; Other diabetic neurological complication associated with type 2 diabetes mellitus E11.49 and Onychomycosis B35.1 [facility] [address] [facility] [id number] [address] [place] [phone] Nov, Type 2 diabetes mellitus wit h complication E11.8 [place] [address] [facility] [id number] [address] [place] [id number] Nov, [facility] [address] [facility] [id number] [address] [place] [phone] Oct, Intermittent explosive disor salvatore in adult F63.81 ; Bipolar disorder, unspecified F31.9 and Mild intellectual disability F70 [facility] [address] [facility] [id number] [address] [place] [id number] Oct, [facility] [address] [id number] [address] [place] [address] [id number] 11 Oct, 2017 Dental examination Z01.20 [facility] [address] [facility] [id number] [address] [place] [id number] Oct, Onychomycosis B35.1 and Othe r diabetic neurological complication associated with type 2 diabetes mellitus E11.49 [facility] [address] [facility] [id number] [address] [place] [id number] Sep, Type 2 diabetes mellitus wit h complication E11.8 and Colon cancer screening Z12.11 [facility] [address] [facility] [id number] [address] [place] [phone] Sep, Type 2 diabetes mellitus wit h complication E11.8 ; Colon cancer screening Z12.11 and Neuropathy G62.9 [facility] [address] [facility] [id number] [address] [place] [phone] August, Diabetes E11.9 [facility] [address] [id number] [address] [place] [address] [id number] Jul, Dental examination Z01.20 [facility] [address] [facility] [id number] [address] [place] [id number] 27 May, 2017 Mild intellectual disability F70 [place] [address] [address] May, Mild intellectual disability F70 ; High risk medication use Z79.899 ; Intermittent explosive disorder in adult F63.81 and Bipolar disorder, unspecified F31.9 [place] [id number] [place] [id number] May, [place] [address] [place] [id number] [address] [place] [phone] May, [place] [address] [place] [id number] [address] [place] [id number] Apr, Type 2 diabetes mellitus wit h complication E11.8 ; Mild intellectual disability F70 ; Gastroesophageal reflux disease without esophagitis K21.9 ; Reactive airway disease, mild intermittent, uncomplicated J45.20 and Tobacco abuse Z72.0 [place] [address] [facility] [id number] [address] [place] [phone] Apr, High risk medication use Z79 .899 ; Mild intellectual disability F70 ; Intermittent explosive disorder in adult F63.81 and Bipolar disorder, unspecified F31.9 [facility] [address] [place] [id number] [address] [place] [address] [id number] Mar, Encounter for dental exam an d cleaning w/o abnormal findings Z01.20 [facility] [address] [id number] [address] [place] [address] [id number] Mar, Dental examination Z01.20 [facility] [address] [id number] [address] [place] [id number] 12 Jan, 2017 [facility] [address] [id number] [address] [place] [phone] Jan, [facility] [address] [id number] [address] [place] [phone] Jan, Mild intellectual disability F70 ; Bipolar disorder, unspecified F31.9 and Intermittent explosive disorder in adult F63.81 [facility] [address] [id number] [address] [place] [id number] 02 Jan, 2017 Diabetes E11.9 [facility] [address] [id number] [address] [place] [address] [id number] 13 Dec, 2016 Encounter for dental examina tion and cleaning without abnormal findings Z01.20 [facility] [address] [id number] [address] [place] [id number] 12 Dec, 2016 Bipolar disorder, unspecifie d F31.9 ; Intermittent explosive disorder in adult F63.81 and Mild intellectual disability F70 [facility] [address] [id number] [address] [place] [phone] Nov, Diabetes E11.9 [facility] [address] [facility] [id number] [address] [place] [id number] Nov, [facility] [address] [facility] [id number] [address] [place] [phone] Nov, Diabetes E11.9 and Colon can cer screening Z12.11 [facility] [place] [id number] [facility] [address] [id number] [id number] Sep, Dental examination Z01.20 [facility] [address] [id number] [address] [place] [address] [id number] Sep, Encounter for dental examina tion and cleaning without abnormal findings Z01.20 [facility] [address] [id number] [address] [place] [id number] 13 Sep, 2016 Bipolar disorder, unspecifie d F31.9 [facility] [address] [facility] [id number] [address] [place] [id number] 12 Sep, 2016 Bipolar disorder, unspecifie d F31.9 [facility] [address] [facility] [id number] [address] [place] [id number] Jul, [facility] [address] [facility] [id number] [address] [place] [phone] Jul, Type 2 diabetes mellitus wit h complication E11.8 [facility] [address] [place] [id number] [address] [place] [address] [id number] 15 Jun, 2016 Encounter for dental examina tion and cleaning without abnormal findings Z01.20 [place] [address] [facility] [id number] [place] [address] [id number] Jun, Dental examination Z01.20 [facility] [address] [facility] [id number] [address] [place] [phone] Apr, Sports physical Z02.5 [place] [address] [place] [id number] [place] [phone] 14 Mar, 2016 Bipolar disorder, in partial remission, most recent episode manic F31.73 and Intermittent explosive disorder in adult F63.81 [facility] [address] [place] [id number] [address] [place] [id number] 08 Mar, 2016 [facility] [address] [facility] [id number] [address] [place] [id number] 06 Mar, 2016 Diabetes E11.9 [facility] [address] [id number] [address] [place] [address] [id number] 03 Feb, 2016 Encounter for dental examina tion and cleaning without abnormal findings Z01.20 [facility] [address] [facility] [id number] [address] [place] [id number] 22 Dec, 2015 Nocturnal hypoxemia G47.34 a nd Encounter for immunization Z23 [facility] [address] [facility] [id number] [address] [place] [id number] 15 Dec, 2015 [facility] [address] [facility] [id number] [address] [place] [id number] 12 Dec, 2015 [facility] [address] [facility] [id number] [address] [place] [id number] 12 Dec, 2015 Bipolar disorder, unspecifie d F31.9 [facility] [address] [id number] [address] [place] [address] [id number] 13 Oct, 2015 Encounter for dental examina tion and cleaning without abnormal findings Z01.20 [place] [address] [facility] [id number] [place] [address] [id number] 13 Oct, 2015 Dental examination Z01.20 [facility] [address] [place] [id number] [address] [place] [id number] 07 Oct, 2015 Diabetes E11.9 [facility] [address] [id number] 05 Oct, 2015 Diabetes E11.9 ; Reactive ai rway disease, mild intermittent, uncomplicated J45.20 and Tobacco abuse Z72.0 [facility] [address] [id number] 06 Sep, 2015 Bipolar disorder, unspecifie d F31.9 and Depression F32.9 [facility] [address] [id number] Sep, [facility] [address] [id number] August, Tinea pedis of both feet B35 .3 and DM w/o complication type II, uncontrolled E11.65 [facility] [address] [id number] Jul, [facility] [address] [place] [id number] [place] [phone] Jul, [facility] [address] [id number] Jul, Obstructive sleep apnea G47. 33 [facility] [address] [place] [id number] [address] [place] [id number] Jun, Diabetes E11.9 [facility] [address] [id number] Jun, [facility] [address] [address] Jun, [facility] [address] [address] Jun, Bipolar disorder, unspecifie d F31.9 and Mental retardation F79 [place] [address] [address] Apr, [place] [address] [address] Feb, Diabetes E11.9 ; Encounter f or immunization Z23 ; Cough R05 and Nicotine abuse Z72.0 [place] [address] [address] Jan, Bipolar disorder, unspecifie d F31.9 and Diabetes mellitus without mention of complication, type II or unspecified type, uncontrolled 250.02 [place] [address] [address] Jan, [place] [address] [address] Dec, Reactive airway disease 493. 90 and Enuresis 788.30 [place] [address] [address] Dec, [place] [address] [address] Nov, [place] [address] [address] Nov, [place] [address] [address] Nov, Annual physical exam V70.0 ; Urinary incontinence 788.30 ; Diabetes 250.00 and Hypertension 401.9 [facility] [address] [id number] [address] [place] [id number] Oct, Diabetes mellitus without me ntion of complication, type II or unspecified type, uncontrolled 250.02 [facility] [address] [id number] [address] [place] [id number] Oct, Diabetes mellitus without me ntion of complication, type II or unspecified type, uncontrolled 250.02 [facility] [address] [id number] [address] [place] [id number] Oct, Diabetes mellitus without me ntion of complication, type II or unspecified type, uncontrolled 250.02 [facility] [address] [facility] [id number] [address] [place] [id number] Oct, [facility] [address] [id number] [address] [place] [id number] Oct, [facility] [address] [id number] [address] [place] [id number] Oct, Bipolar disorder, unspecifie d 296.80 [facility] [address] [id number] [address] [place] [address] [id number] Sep, Dental examination V72.2 [facility] [address] [id number] [address] [place] [phone] August, [facility] [address] [id number] [address] [place] [address] [id number] August, Dental examination V72.2 [facility] [address] [id number] [address] [place] [phone] August, [facility] [address] [id number] [address] [place] [id number] Jul, [facility] [address] [facility] [id number] [address] [place] [id number] Jul, [facility] [address] [id number] [address] [place] [address], [place] [address] 17 Jun, 2014 [facility] [address] [id number] [address] [place] [address], [place] [phone] 17 Jun, 2014 [facility] [address] [id number] [address] [place] [address], [place] [address] 17 Jun, 2014 [facility] [address] [id number] [address] [place] [address], [place] [address] 17 Jun, 2014 [facility] [address] [id number] [address] [place] [address], [place] [address] 23 May, 2014 [facility] [address] [id number] [address] [place] [address], [place] [address] 23 May, 2014 [facility] [address] [id number] [address] [place] [address], [place] [address] 16 May, 2014 [facility] [address] [id number] [address] [place] [address], [place] [address] 16 May, 2014 [facility] [address] [id number] [address] [place] [address], [place] [address] 16 May, 2014 [facility] [address] [id number] [address] [place] [address], [place] [address] 16 May, 2014 [facility] [address] [id number] [address] [place] [address], [place] [address] 16 May, 2014 [facility] [address] [id number] [address] [place] [address], [place] [address] 16 May, 2014 [facility] [address] [id number] [address] [place] [address], [place] [address] 16 May, 2014 [facility] [address] [id number] [address] [place] [address], [place] [address] 16 May, 2014 [facility] [address] [id number] [address] [place] [address], [place] [address] 16 May, 2014 [facility] [address] [id number] [address] [place] [address], [place] [address] 16 May, 2014 [facility] [address] [id number] [address] [place] [address], [place] [address] May, [facility] [address] [id number] [address] [place] [address], [place] [address] May, [facility] [address] [id number] [address] [place] [address], [place] [address] May, [facility] [address] [id number] [address] [place] [address], [place] [address] Apr, [facility] [address] [id number] [address] [place] [address], [place] [address] Apr, [facility] [address] [id number] [address] [place] [address], [place] [address] Apr, [facility] [address] [id number] [address] [place] [address], [place] [address] Apr, [facility] [address] [id number] [address] [place] [address], [place] [address] Apr, [facility] [address] [id number] [address] [place] [address], [place] [address] Apr, [facility] [address] [id number] [address] [place] [address], [place] [address] Apr, [facility] [address] [id number] [address] [place] [address], [place] [address] Apr, [facility] [address] [id number] [address] [place] [address], [place] [address] Apr, [facility] [address] [id number] [address] [place] [address], [place] [address] Apr, [facility] [address] [id number] [address] [place] [address], [place] [address] Apr, [facility] [address] [id number] [address] [place] [address], [place] [address] Apr, [facility] [address] [id number] [address] [place] [address], [place] [address] Mar, [facility] [address] [id number] [address] [place] [address], [place] [address] Mar, [facility] [address] [id number] [address] [place] [address], [place] [address] Mar, [facility] [address] [id number] [address] [place] [address], [place] [address] Mar, [facility] [address] [id number] [address] [place] [address], [place] [address] Mar, [facility] [address] [id number] [address] [place] [address], [place] [address] Mar, [facility] [address] [id number] [address] [place] [address], [place] [address] Feb, [facility] [address] [id number] [address] [place] [address], [place] [address] Feb, [facility] [address] [id number] [address] [place] [address], [place] [address] Feb, [facility] [address] [id number] [address] [place] [address], [place] [address] Feb, [facility] [address] [id number] [address] [place] [address], [place] [address] 14 Jan, 2014 [facility] [address] [id number] [address] [place] [address], [place] [address] 14 Jan, 2014 [facility] [address] [id number] [address] [place] [address], [place] [address] 14 Jan, 2014 [facility] [address] [id number] [address] [place] [address], [place] [address] 14 Jan, 2014 [facility] [address] [id number] [address] [place] [address], [place] [address] 22 Dec, 2013 [facility] [address] [id number] [facility] [address] Dec, [facility] [address] [id number] [address] [place] [address], [place] [address] Dec, [facility] [address] [id number] [address] [place] [address], [place] [address] Dec, [facility] [address] [id number] [address] [place] [address], [place] [address] Nov, [facility] [address] [id number] [address] [place] [address], [place] [address] Nov, [facility] [address] [id number] [address] [place] [address], [place] [address] Nov, [facility] [address] [id number] [address] [place] [address], [place] [address] Nov, [facility] [address] [id number] [address] [place] [address], [place] [address] Nov, [facility] [address] [id number] [address] [place] [address], [place] [address] Nov, [facility] [address] [id number] [address] [place] [address], [place] [address] Nov, [facility] [address] [id number] [address] [place] [address], [place] [address] Oct, [facility] [address] [id number] [address] [place] [address], [place] [address] Oct, [facility] [address] [id number] [address] [place] [address], [place] [address] Oct, [facility] [address] [id number] [address] [place] [address], [place] [address] Oct, [facility] [address] [id number] [address] [place] [address], [place] [address] Oct, [facility] [address] [id number] [address] [place] [address], [place] [address] Oct, [facility] [address] [id number] [address] [place] [address], [place] [address] Oct, [facility] [address] [id number] [address] [place] [address], [place] [address] Sep, [facility] [address] [id number] [address] [place] [address], [place] [address] Sep, [facility] [address] [id number] [address] [place] [address], [place] [address] Sep, [facility] [address] [id number] [address] [place] [address], [place] [address] Sep, [facility] [address] [id number] [address] [place] [address], [place] [address] Sep, [facility] [address] [id number] [address] [place] [address], [place] [address] Jul, [facility] [address] [id number] [address] [place] [address], [place] [address] Jul, [facility] [address] [id number] [address] [place] [address], [place] [address] Jul, [facility] [address] [id number] [address] [place] [address], [place] [address] Jul, [facility] [address] [id number] [address] [place] [address], [place] [address] Jul, [facility] [address] [id number] [address] [place] [address], [place] [address] Jul, [facility] [address] [id number] [address] [place] [address], [place] [address] Jul, [facility] [address] [id number] [address] [place] [address], [place] [address] Jul, [facility] [address] [id number] [address] [place] [address], [place] [address] Jul, [facility] [address] [id number] [address] [place] [address], [place] [address] Jul, [facility] [address] [id number] [facility] [place] [address] Jul, [facility] [address] [id number] [address] [place] [address], [place] [address] Jul, [facility] [address] [id number] [address] [place] [address], [place] [address] Jun, [facility] [address] [id number] [address] [place] [address], [place] [address] Jun, [facility] [address] [id number] [address] [place] [address], [place] [address] Jun, [facility] [address] [id number] [address] [place] [address], [place] [address] Jun, [facility] [address] [id number] [address] [place] [address], [place] [address] Jun, [facility] [address] [id number] [address] [place] [address], [place] [address] Jun, [facility] [address] [id number] [address] [place] [address], [place] [address] Jun, [facility] [address] [id number] [address] [place] [address], [place] [address] Jun, [facility] [address] [id number] [address] [place] [address], [place] [address] May, [facility] [address] [id number] [address] [place] [address], [place] [address] May, [facility] [address] [id number] [address] [place] [address], [place] [address] May, [facility] [address] [id number] [address] [place] [address], [place] [address] May, [facility] [address] [id number] [address] [place] [address], [place] [address] May, [facility] [address] [id number] [address] [place] [address], [place] [address] May, [facility] [address] [id number] [address] [place] [address], [place] [address] May, [facility] [address] [id number] [address] [place] [address], [place] [address] May, [facility] [address] [id number] [address] [place] [address], [place] [address] Apr, [facility] [address] [id number] [address] [place] [address], [place] [address] Apr, [facility] [address] [id number] [address] [place] [address], [place] [address] Apr, [facility] [address] [id number] [address] [place] [address], [place] [address] Apr, [facility] [address] [id number] [address] [place] [address], [place] [address] Mar, [facility] [address] [id number] [address] [place] [address], [place] [address] Mar, [facility] [address] [id number] [address] [place] [address], [place] [address] Mar, [facility] [address] [id number] [address] [place] [address], [place] [address] Feb, [facility] [address] [id number] [address] [place] [address], [place] [address] Feb, [facility] [address] [id number] [address] [place] [address], [place] [address] Feb, [facility] [address] [id number] [address] [place] [address], [place] [address] Feb, [facility] [address] [id number] [address] [place] [address], [place] [address] Feb, [facility] [address] [id number] [address] [place] [address], [place] [address] Feb, [facility] [address] [id number] [address] [place] [address], [place] [address] Jan, [facility] [address] [id number] [address] [place] [address], [place] [address] Jan, [facility] [address] [id number] [address] [place] [address], [place] [address] Jan, [facility] [address] [id number] [address] [place] [address], [place] [address] Jan, [facility] [address] [id number] [address] [place] [address], [place] [address] Jan, [facility] [address] [id number] [address] [place] [address], [place] [address] Jan, [facility] [address] [id number] [address] [place] [address], [place] [address] Jan, [facility] [address] [id number] [address] [place] [address], [place] [address] Dec, [facility] [address] [id number] [address] [place] [address], [place] [address] 16 Dec, 2012 [facility] [address] [id number] [address] [place] [address], [place] [address] 10 Dec, 2012 [facility] [address] [id number] [address] [place] [address], [place] [address] 05 Dec, 2012 [facility] [address] [id number] [address] [place] [address], [place] [address] Nov, [facility] [address] [id number] [address] [place] [address], [place] [address] Nov, [facility] [address] [id number] [address] [place] [address], [place] [address] Nov, [facility] [address] [id number] [address] [place] [address], [place] [address] Nov, [facility] [address] [id number] [address] [place] [address], [place] [address] Nov, [facility] [address] [id number] [address] [place] [address], [place] [address] Nov, [facility] [address] [id number] [address] [place] [address], [place] [address] Nov, [facility] [address] [id number] [address] [place] [address], [place] [address] Oct, [facility] [address] [id number] [address] [place] [address], [place] [address] Oct, [facility] [address] [id number] [address] [place] [address], [place] [address] Oct, [facility] [address] [id number] [address] [place] [address], [place] [address] Oct, [facility] [address] [id number] [address] [place] [address], [place] [address] Oct, [facility] [address] [id number] [address] [place] [address], [place] [address] Oct, [facility] [address] [id number] [address] [place] [address], [place] [address] Oct, [facility] [address] [id number] [address] [place] [address], [place] [address] Oct, [facility] [address] [id number] [address] [place] [address], [place] [address] Sep, mananzJANAK PEREZ [address] [id number] [place] [id number] August, [facility] [address] [id number] [address] [place] [address], [place] [address] August, [facility] [address] [id number] [address] [place] [address], [place] [address] Jul, [facility] [address] [id number] [address] [place] [address], [place] [address] 29 Jul, 2012 [facility] [address] [id number] [address] [place] [address], [place] [address] Jul, [facility] [address] [id number] [address] [place] [address], [place] [address] 22 Jul, 2012 [facility] [address] [id number] [address] [place] [address], [place] [address] 18 Jul, 2012 [facility] [address] [id number] [address] [place] [address], [place] [address] 17 Jul, 2012 [facility] [address] [id number] [address] [place] [address], [place] [address] 16 Jul, 2012 [facility] [address] [id number] [address] [place] [address], [place] [address] Jun, [facility] [address] [id number] [address] [place] [address], [place] [address] Jun, [facility] [address] [id number] [address] [place] [address], [place] [address] Jun, [facility] [address] [id number] [address] [place] [address], [place] [address] Jun, [facility] [address] [id number] [address] [place] [address], [place] [address] Jun, [facility] [address] [id number] [address] [place] [address], [place] [address] May, [facility] [address] [id number] [address] [place] [address], [place] [address] 18 May, 2012 [facility] [address] [id number] [address] [place] [address], [place] [address] 04 May, 2012 [facility] [address] [id number] [address] [place] [address], [place] [address] 15 Apr, 2012 [facility] [address] [id number] [address] [place] [address], [place] [address] 14 Apr, 2012 [facility] [address] [id number] [address] [place] [address], [place] [address] Apr, [facility] [address] [id number] [address] [place] [address], [place] [address] Mar, [facility] [address] [id number] [address] [place] [address], [place] [address] Mar, [facility] [address] [id number] [address] [place] [address], [place] [address] Mar, [facility] [address] [id number] [address] [place] [address], [place] [address] Mar, [facility] [address] [id number] [address] [place] [address], [place] [address] Mar, [facility] [address] [id number] [address] [place] [address], [place] [address] Mar, [facility] [address] [id number] [address] [place] [address], [place] [address] Feb, [facility] [address] [id number] [address] [place] [address], [place] [address] Feb, [facility] [address] [id number] [address] [place] [address], [place] [address] Jan, [facility] [address] [id number] [address] [place] [address], [place] [address] Jan, [facility] [address] [id number] [address] [place] [address], [place] [address] Dec, [facility] [address] [id number] [address] [place] [address], [place] [address] Nov, [facility] [address] [id number] [address] [place] [address], [place] [address] Nov, [facility] [address] [id number] [address] [place] [address], [place] [address] Nov, [facility] [address] [id number] [address] [place] [address], [place] [address] Nov, [facility] [address] [id number] [address] [place] [address], [place] [address] Oct, [facility] [address] [id number] [address] [place] [address], [place] [address] Oct, [facility] [address] [id number] [address] [place] [address], [place] [address] Oct, [facility] [address] [id number] [address] [place] [address], [place] [address] Sep, [facility] [address] [id number] [address] [place] [address], [place] [address] Sep, [facility] [address] [id number] [address] [place] [address], [place] [address] Sep, [facility] [address] [id number] [address] [place] [address], [place] [address] August, [facility] [address] [id number] [address] [place] [address], [place] [address] August, [facility] [address] [id number] [address] [place] [address], [place] [address] Jul, [facility] [address] [id number] [address] [place] [address], [place] [address] Jul, [facility] [address] [id number] [address] [place] [address], [place] [address] Jul, [facility] [address] [id number] [address] [place] [address], [place] [address] Jul, [facility] [address] [id number] [address] [place] [address], [place] [address] Jun, [facility] [address] [id number] [address] [place] [address], [place] [address] May, [facility] [address] [id number] [address] [place] [address], [place] [address] Apr, [facility] [address] [id number] [address] [place] [id number] Apr, [facility] [address] [id number] [address] [place] [address], [place] [address] Apr, [facility] [address] [id number] [address] [place] [address] Apr, [facility] [address] [id number] [address] [place] [address], [place] [address] Apr, [facility] [address] [id number] [address] [place] [address], [place] [address] Apr, [facility] [address] [id number] [address] [place] [address], [place] [address] Mar, [facility] [address] [id number] [address] [place] [address], [place] [address] Mar, [facility] [address] [id number] [address] [place] [id number] Feb, [facility] [address] [id number] [address] [place] [address], [place] [address] Feb, [facility] [address] [id number] [address] [place] [address], [place] [address] Feb, [facility] [address] [id number] [address] [place] [address] Feb, [facility] [address] [id number] [address] [place] [address], [place] [address] Jan, [facility] [address] [id number] [address] [place] [address] Jan, [facility] [address] [id number] [address] [place] [address], [place] [address] Jan, [facility] [address] [id number] [address] [place] [address] Jan, [facility] [address] [id number] [address] [place] [address] Nov, [facility] [address] [id number] [address] [place] [address], [place] [address] 03 Mar, 2010 [facility] [address] [id number] [address] [place] [address], [place] [address] 02 Mar, 2010 [facility] [address] [id number] [address] [place] [address], [place] [address] 30 Feb, 2010 [facility] [address] [id number] [address] [place] [address], [place] [address] 15 Feb, 2010 [facility] [address] [id number] [address] [place] [address], [place] [address] Jan, [facility] [address] [id number] [address] [place] [address], [place] [address] Jan, [facility] [address] [id number] [address] [place] [address], [place] [address] Sep, [facility] [address] [id number] [address] [place] [address], [place] [address] 16 May, 2009 [facility] [address] [id number] [address] [place] [address], [place] [address] Apr, [facility] [address] [id number] [address] [place] [address], [place] [address] Mar, [facility] [address] [id number] [address] [place] [address], [place] [address] 15 Feb, 2009 [facility] [address] [id number] [address] [place] [address], [place] [address] 10 Feb, 2009 [facility] [address] [id number] [address] [place] [address], [place] [address] 10 Feb, 2009 [facility] [address] [id number] [address] [place] [address], [place] [address] 22 Jan, 2009 [facility] [address] [id number] [address] [place] [id number] 13 Jan, 2009 [facility] [address] [id number] [address] [place] [id number] Jan, [facility] [address] [facility] [id number] [place] [address] Jan, [facility] [address] [facility] [id number] [address] [place] [address] August, IMMUNIZATIONS No Known Immunizations SOCIAL HISTORY Never Assessed REASON FOR VISIT PLAN OF CARE VITAL SIGNS Height 64 in 2012-08-14 Weight 206.8 lbs 2012-08-14 Temperature 97.6 degrees Fahrenheit 2012-08-14 Heart Rate 78 bpm 2012-08-14 Respiratory Rate 18 2012-08-14 Blood pressure systolic 100 mmHg 2012-08-14 Blood pressure diastolic 68 mmHg 2012-08-14 MEDICATIONS Unknown Medications RESULTS No Results PROCEDURES Procedure Date Ordered Result Body Site ASSAY OF PSA, TOTAL August 14, 2012 URINALYSIS, AUTO, W/O SCOPE August 14, 2012 VENIPUNCT, ROUTINE* August 14, 2012 INSTRUCTIONS MEDICATIONS ADMINISTERED No Known Medications [...] age 6 Hospitalization History surgery Hospitalization History [facility], [facility] tient treatment few times for BH
--- OUTSIDE RECORDS SUMMARY | 2019-09-29 10:36 | XMS REPORT ---
Author Author Cameron ALANIZ [facility] Address [address] [place] [address] Care Team Providers Care Tongue Presser Name Role Phone JEET ALANIZ Unavailable PROBLEMS Type Condition ICD9-CM Code TYN66-KM Code Onset Dates Condition S tatus SNOMED Code Problem Adjustment disorder, unspecified type F43.20 Active 12441262 Problem Reactive airway disease, unspecified asthma justin rity, uncomplicated J45.909 Active 216163283931 Problem Hypertensive retinopathy of both eyes H35.033 Active 7923781 Problem Open-angle glaucoma of both eyes, unspecified glaucoma stage, unspecified open-angle glaucoma type H40.10X0 Acti ve 85485005 Problem Essential hypertension I10 Active 03093483 Problem Obstructive sleep apnea G47.33 Active 52074456 Problem Intermittent explosive disorder F63.81 Active 16526610 Problem Type 2 diabetes mellitus with complication E11.8 Active 03717759 Problem Bipolar disorder, in partial remission, most rec ent episode manic F31.73 Active 82323747 Problem Intermittent explosive disorder in adult F63.81 Active 98101871 Problem Bipolar disorder, unspecified F31.9 Active 16124178 Problem Neuropathy G62.9 Active 315252742 Problem Diabetes E11.9 Active 38035124 Problem Other specified urinary incontinence N39.498 Active 779364176 Problem Depression F32.9 Active 14577034 Problem 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 Active 16157417 Problem Mild intellectual disability F70 A ctive 89630000 Problem Reactive airway disease, mild intermittent, uncomplicated J45.20 Active 735372755 Problem Gastroesophageal reflux disease without esophagitis K21.9 Active 246691052 Problem Other diabetic neurological complication associated with type 2 diabetes mellitus E11.49 Active [id number] ALLERGIES No Information ENCOUNTERS Encounter Location Date Diagnosis [facility] [address] [id number] [place] [address] August, [facility] [id number] [place] [address] Jul, [facility] [address] [address] Jul, [facility] [address] [address] 10 Jun, 2019 [facility] [address] [address] Jun, [facility] [address] [facility] [id number] [place] [address] 04 Jun, 2019 Dysuria R30.0 [facility] [address] [address] 02 Jun, 2019 [facility] [address] [address] 20 May, 2019 Influenza J11.1 [facility] [address] [address] 13 May, 2019 Intermittent explosive disorder in adult F63.81 [facility] [address] [address] 12 May, 2019 [facility] [address] [address] Apr, Intermittent explosive disorder in adult F63.81 ; Bipolar disorder, unspecified F31.9 and Mild intellectual disability F70 [facility] [address] [address] [id number] [address] Apr, Oral health maintenance stat us requiring routine preventive dental care K08.9 [facility] [address] [address] Apr, Type 2 diabetes mellitus with complicati on E11.8 ; History of test for hearing Z92.89 ; Colon cancer screening Z12.11 ; Other specified urinary incontinence N39.498 and Impacted cerumen, right ear H61.21 [facility] [address] [place] [address] Apr, Onychomycosis B35.1 ; Other diabetic luc rological complication associated with type 2 diabetes mellitus E11.49 and Tinea pedis of both feet B35.3 [facility] [address] [address] Feb, [facility] [address] [address] Jan, [facility] [address] [address] Jan, [facility] [address] [address] Jan, [facility] [address] [address] Jan, [facility] [address] [address] Jan, [facility] [address] [address] Jan, [facility] [address] [address] Jan, [facility] [address] [address] Jan, Anemia D64.9 [facility] [address] [facility] [address] [id number] [address] Jan, Dental examination Z01.20 an d Oral health maintenance status requiring routine preventive dental care K08.9 [facility] [address] [address] Jan, Onychomycosis B35.1 and Other diabetic n eurological complication associated with type 2 diabetes mellitus E11.49 [facility] [address] [address] Jan, Anemia D64.9 [facility] [address] [address] Jan, [facility] [address] [address] Dec, Urinary tract infection without hematuri a, site unspecified N39.0 [facility] [address] [address] Dec, Type 2 diabetes mellitus with complicati on E11.8 ; Urinary tract infection without hematuria, site unspecified N39.0 ; Impacted cerumen of both ears H61.23 ; Encounter for immunization Z23 and Hyponatremia E87.1 [facility] [address] [address] Dec, Intermittent explosive disorder in adult F63.81 ; Dysuria R30.0 ; Type 2 diabetes mellitus with complication E11.8 ; Bipolar disorder, unspecified F31.9 and Mild intellectual disability F[address] [address] Dec, Dysuria R30.0 [facility] [address] [address] Dec, Intermittent explosive disorder in adult F63.81 ; Bipolar disorder, unspecified F31.9 and Mild intellectual disability F70 [facility] [id number] [place] [address] Nov, [address] [address] [address] Oct, [facility] [address] [address] [id number] [place] [address] Oct, Oral health maintenance stat us requiring routine preventive dental care K08.9 [facility] [address] [address] August, Intermittent explosive disorder in adult F63.81 ; Bipolar disorder, unspecified F31.9 and Mild intellectual disability F70 [facility] [address] [facility] [id number] [place] [id number] August, Dental caries K02.9 [facility] [address] [address] Jul, Onychomycosis B35.1 ; Other diabetic luc rological complication associated with type 2 diabetes mellitus E11.49 and Tinea pedis of both feet B35.3 [facility] [address] [id number] Jul, Caries K02.9 [place] [address] [address] Jul, Type 2 diabetes mellitus with complicati on E11.8 ; Tobacco abuse Z72.0 and Bipolar disorder, unspecified F31.9 [place] [address] [address] Jun, [facility] [address] [id number] Jun, Dental examination Z01.20 and Oral healt h maintenance status requiring routine preventive dental care K08.9 [place] [address] [address] May, Bilateral impacted cerumen H61.[address] [address] Apr, Bipolar disorder, unspecified F31.9 ; In termittent explosive disorder in adult F63.81 ; Type 2 diabetes mellitus with complication E11.8 ; Tobacco abuse Z72.0 and Colon cancer screening Z12.11 [place] [address] [address] Apr, Onychomycosis B35.1 and Other diabetic n eurological complication associated with type 2 diabetes mellitus E11.[address] [address] Apr, Intermittent explosive disorder in adult F63.81 ; Bipolar disorder, unspecified F31.9 and Mild intellectual disability F70 [address] [address] [address] Mar, Diabetes E11.9 [facility] [address] [facility] [id number] [address] [place] [address] Jan, Encounter for immunization Z 23 [place] [address] [address] 12 Jan, 2018 Tinea pedis of both feet B35.3 ; Other d iabetic neurological complication associated with type 2 diabetes mellitus E11.49 and Onychomycosis B35.1 [place] [address] [address] Nov, Type 2 diabetes mellitus with complicati on E11.8 [place] [address] [address] Nov, [place] [address] [address] Oct, Intermittent explosive disorder in adult F63.81 ; Bipolar disorder, unspecified F31.9 and Mild intellectual disability F70 [address] [address] Oct, [facility] [address] [id number] Oct, Dental examination Z01.20 [place] [address] [address] Oct, Onychomycosis B35.1 and Other diabetic n eurological complication associated with type 2 diabetes mellitus E11.49 [place] [address] [address] Sep, Type 2 diabetes mellitus with complicati on E11.8 and Colon cancer screening Z12.11 [place] [address] [address] Sep, Type 2 diabetes mellitus with complicati on E11.8 ; Colon cancer screening Z12.11 and Neuropathy G62.9 [place] [address] [address] August, Diabetes E11.9 [facility] [address] [id number] Jul, Dental examination Z01.20 [facility] [address] [address] May, Mild intellectual disability F70 [facility] [address] [address] May, Mild intellectual disability F70 ; High risk medication use Z79.899 ; Intermittent explosive disorder in adult F63.81 and Bipolar disorder, unspecified F31.9 [facility] [address] [address] May, [facility] [address] [address] May, [facility] [address] [address] Apr, Type 2 diabetes mellitus with complicati on E11.8 ; Mild intellectual disability F70 ; Gastroesophageal reflux disease without esophagitis K21.9 ; Reactive airway disease, mild intermittent, uncomplicated J45.20 and Tobacco abuse Z72.0 [facility] [address] [address] Apr, High risk medication use Z79.899 ; Mild intellectual disability F70 ; Intermittent explosive disorder in adult F63.81 and Bipolar disorder, unspecified F31.9 [facility] [address] [id number] Mar, Encounter for dental exam and cleaning w /o abnormal findings Z01.20 [facility] [address] [id number] Mar, Dental examination Z01.20 [facility] [address] [address] Jan, [facility] [address] [address] Jan, [facility] [address] [address] Jan, Mild intellectual disability F70 ; Bipol ar disorder, unspecified F31.9 and Intermittent explosive disorder in adult F63.81 [facility] [address] [address] 02 Jan, 2017 Diabetes E11.9 [facility] [address] [id number] [place] [id number] 13 Dec, 2016 Encounter for dental examination and osei aning without abnormal findings Z01.20 [facility] [address] [address] 12 Dec, 2016 Bipolar disorder, unspecified F31.9 ; In termittent explosive disorder in adult F63.81 and Mild intellectual disability F70 [facility] [address] [address] 25 Nov, 2016 Diabetes E11.9 [facility] [address] [address] Nov, [facility] [address] [address] Nov, Diabetes E11.9 and Colon cancer screenin g Z12.11 [address] [id number] Sep, Dental examination Z01.20 [facility] [id number] [place] [id number] 21 Sep, 2016 Encounter for dental examination and osei aning without abnormal findings Z01.20 [facility] [address] [address] 13 Sep, 2016 Bipolar disorder, unspecified F31.9 [facility] [address] [address] Sep, Bipolar disorder, unspecified F31.9 [facility] [address] [address] Jul, [facility] [address] [address] Jul, Type 2 diabetes mellitus with complicati on E11.8 [facility] [address] [id number] 15 Jun, 2016 Encounter for dental examination and osei aning without abnormal findings Z01.20 [facility] [address] [id number] [id number] 15 Jun, 2016 Dental examination Z01.20 [facility] [address] [id number] 18 Apr, 2016 Sports physical Z02.5 [facility] [address] [address] 14 Mar, 2016 Bipolar disorder, in partial remission, most recent episode manic F31.73 and Intermittent explosive disorder in adult F63.81 [facility] [address] [id number] 08 Mar, 2016 [facility] [address] [address] 06 Mar, 2016 Diabetes E11.9 [facility] [address] [id number] Feb, Encounter for dental examination and osei aning without abnormal findings Z01.20 [facility] [address] [address] 22 Dec, 2015 Nocturnal hypoxemia G47.34 and Encounter for immunization Z23 [facility] [address] [address] 15 Dec, 2015 [facility] [address] [address] Dec, [facility] [address] [address] Dec, Bipolar disorder, unspecified F31.9 [facility] [address] [id number] Oct, Encounter for dental examination and osei aning without abnormal findings Z01.20 [facility] [address] [id number] [id number] Oct, Dental examination Z01.20 [place] [address] [address] Oct, Diabetes E11.9 [place] [address] [address] Oct, Diabetes E11.9 ; Reactive airway disease , mild intermittent, uncomplicated J45.20 and Tobacco abuse Z72.0 [place] [address] [address] Sep, Bipolar disorder, unspecified F31.9 and Depression F32.9 [place] [address] [address] Sep, [place] [address] [address] August, Tinea pedis of both feet B35.3 and DM w/ o complication type II, uncontrolled E11.65 [place] [address] [address] Jul, [place] [address] [address] Jul, [place] [address] [address] Jul, Obstructive sleep apnea G47.33 [place] [address] [address] Jun, Diabetes E11.9 [place] [address] [address] Jun, [place] [address] [address] Jun, [place] [address] [address] Jun, Bipolar disorder, unspecified F31.9 and Mental retardation F79 [place] [address] [address] Apr, [place] [address] [address] Feb, Diabetes E11.9 ; Encounter for immunizat ion Z23 ; Cough R05 and Nicotine abuse Z72.[address] [address] Jan, Bipolar disorder, unspecified F31.9 and Diabetes mellitus without mention of complication, type II or unspecified type, uncontrolled 250.[address] [address] Jan, [address] [address] Dec, Reactive airway disease 493.90 and Enure sis 788.[address] [address] Dec, [address] [address] Nov, [address] [address] Nov, [address] [address] Nov, Annual physical exam V70.0 ; Urinary inc ontinence 788.30 ; Diabetes 250.00 and Hypertension 401.[address] [address] Oct, Diabetes mellitus without mention of com plication, type II or unspecified type, uncontrolled 250.[address] [address] Oct, Diabetes mellitus without mention of com plication, type II or unspecified type, uncontrolled 250.[address] [address] Oct, Diabetes mellitus without mention of com plication, type II or unspecified type, uncontrolled 250.[address] [address] Oct, [address] [id number] [place] [address] Oct, [facility] [id number] [place] [address] Oct, Bipolar disorder, unspecified 296.80 [facility] [address] [id number] [place] [id number] Sep, Dental examination V72.2 [facility] [id number] [place] [address] August, [facility] [address] [id number] [place] [id number] August, Dental examination V72.2 [facility] [id number] [place] [address] August, [facility] [id number] [place] [address] Jul, [facility] [id number] [place] [address] Jul, [facility] [id number] [place] [address] Jun, [facility] [id number] [place] [address] Jun, [facility] [id number] [place] [address] Jun, [facility] [id number] [place] [address] Jun, [facility] [id number] [place] [address] May, [facility] [id number] [place] [address] May, [facility] [id number] [place] [address] May, [facility] [id number] [place] [address] May, [facility] [address] [id number] [place] [address] 16 May, 2014 [facility] [address] [id number] [place] [address] May, 2014 [facility] [address] [id number] [place] [address] 16 May, 2014 [facility] [address] [id number] [place] [address] May, 2014 [facility] [address] [id number] [place] [address] May, 2014 [facility] [address] [id number] [place] [address] May, 2014 [facility] [address] [id number] [place] [address] May, 2014 [facility] [address] [id number] [place] [address] May, 2014 [facility] [address] [id number] [place] [address] May, 2014 [facility] [address] [id number] [place] [address] May, 2014 [facility] [address] [id number] [place] [address] May, 2014 [facility] [address] [id number] [place] [address] Apr, [facility] [address] [id number] [place] [address] Apr, [facility] [address] [id number] [place] [address] Apr, [facility] [address] [id number] [place] [address] Apr, [facility] [address] [id number] [place] [address] Apr, [facility] [address] [id number] [place] [address] Apr, [facility] [address] [facility] [id number] [place] [address] Apr, [facility] [address] [facility] [id number] [place] [address] Apr, [facility] [address] [id number] [place] [address] Apr, [facility] [address] [id number] [place] [address] Apr, [facility] [address] [id number] [place] [address] Apr, [facility] [address] [id number] [place] [address] Apr, [facility] [address] [id number] [place] [address] Mar, [facility] [address] [id number] [place] [address] Mar, [facility] [address] [id number] [place] [address] Mar, [facility] [address] [id number] [place] [address] Mar, [facility] [address] [id number] [place] [address] Mar, [facility] [address] [id number] [place] [address] Mar, [facility] [address] [id number] [place] [address] Feb, [facility] [address] [id number] [place] [address] Feb, [facility] [address] [id number] [place] [address] Feb, [facility] [address] [id number] [place] [address] Feb, [facility] [address] [facility] [id number] [place] [address] 14 Jan, 2014 [facility] [address] [facility] [id number] [place] [address] 14 Jan, 2014 [facility] [address] [facility] [id number] [place] [address] 14 Jan, 2014 [facility] [address] [facility] [id number] [place] [address] 14 Jan, 2014 [facility] [address] [facility] [id number] [place] [address] 22 Dec, 2013 [facility] [address] [facility] [id number] [place] [address] 22 Dec, 2013 [facility] [address] [id number] [place] [address] 15 Dec, 2013 [facility] [address] [id number] [place] [address] 15 Dec, 2013 [facility] [address] [id number] [place] [address] Nov, [facility] [address] [facility] [id number] [place] [address] Nov, [facility] [address] [id number] [place] [address] Nov, [facility] [address] [id number] [place] [address] Nov, [facility] [address] [id number] [place] [address] Nov, [facility] [address] [facility] [id number] [place] [address] Nov, [facility] [address] [id number] [place] [address] Nov, [facility] [address] [facility] [id number] [place] [address] Oct, [facility] [address] [id number] [place] [address] Oct, [facility] [address] [id number] [place] [id number] Oct, [facility] [address] [id number] [place] [id number] Oct, [facility] [address] [facility] [id number] [place] [address] Oct, [facility] [address] [id number] [place] [id number] Oct, [facility] [address] [facility] [id number] [place] [address] Oct, [facility] [address] [id number] [place] [address] Sep, [facility] [address] [id number] [place] [address] Sep, [facility] [address] [id number] [place] [address] Sep, [facility] [address] [id number] [place] [address] Sep, [facility] [address] [id number] [place] [address] Sep, [facility] [address] [id number] [place] [address] Jul, [facility] [address] [id number] [place] [address] Jul, [facility] [address] [facility] [id number] [place] [address] Jul, [facility] [address] [id number] [place] [address] Jul, [facility] [address] [id number] [place] [address] 15 Jul, 2013 [facility] [address] [id number] [place] [address] Jul, [facility] [address] [id number] [facility] [address] Jul, [facility] [address] [facility] [place] [id number] [facility] [address] Jul, [facility] [address] [facility] [place] [id number] [place] [address] Jul, [facility] [address] [id number] [place] [address] Jul, [facility] [address] [id number] [place] [address] Jul, [facility] [address] [facility] [id number] [facility] [place] [address] Jul, [facility] [address] [id number] [place] [address] Jun, [facility] [address] [id number] [place] [address] Jun, [facility] [address] [id number] [place] [address] Jun, [facility] [address] [id number] [place] [address] Jun, [facility] [address] [id number] [place] [address] Jun, [facility] [address] [id number] [place] [address] Jun, [facility] [address] [id number] [place] [address] Jun, [facility] [address] [id number] [place] [address] Jun, [facility] [address] [id number] [place] [address] May, [facility] [address] [id number] [place] [address] May, [facility] [address] [id number] [place] [address] May, [facility] [address] [id number] [place] [address] May, [facility] [address] [id number] [place] [address] May, [facility] [address] [id number] [place] [address] May, [facility] [address] [id number] [place] [address] May, [facility] [address] [id number] [place] [address] May, [facility] [address] [id number] [place] [address] Apr, [facility] [address] [id number] [place] [address] Apr, [facility] [id number] [place] [address] Apr, [facility] [address] [id number] [place] [address] Apr, [facility] [address] [id number] [place] [address] Mar, [facility] [address] [id number] [place] [address] Mar, [facility] [address] [id number] [place] [address] Mar, [facility] [address] [id number] [place] [address] Feb, [facility] [address] [id number] [place] [address] Feb, [facility] [address] [id number] [place] [address] Feb, [facility] [address] [id number] [place] [address] Feb, [facility] [address] [id number] [place] [address] Feb, [facility] [address] [facility] [place] [id number] [place] [address] Feb, [facility] [address] [id number] [place] [address] Jan, [facility] [address] [id number] [place] [address] Jan, [facility] [address] [id number] [place] [address] Jan, [facility] [address] [facility] [place] [id number] [place] [address] Jan, [facility] [address] [id number] [place] [address] Jan, [facility] [address] [id number] [place] [address] Jan, [facility] [address] [id number] [place] [address] Jan, [facility] [address] [id number] [place] [address] 25 Dec, 2012 [facility] [address] [id number] [place] [address] 16 Dec, 2012 [facility] [address] [id number] [place] [address] 10 Dec, 2012 [facility] [address] [id number] [place] [address] 05 Dec, 2012 [facility] [address] [id number] [place] [address] Nov, [facility] [address] [id number] [place] [address] Nov, [facility] [address] [id number] [place] [address] Nov, [facility] [address] [id number] [place] [address] Nov, [facility] [address] [id number] [place] [address] Nov, [facility] [address] [id number] [place] [address] Nov, [facility] [address] [id number] [place] [address] Nov, [facility] [address] [id number] [place] [address] Oct, [facility] [address] [id number] [place] [address] Oct, [facility] [address] [id number] [place] [address] Oct, [facility] [address] [id number] [place] [address] Oct, [facility] [address] [id number] [place] [address] Oct, [facility] [address] [id number] [place] [address] Oct, [facility] [address] [id number] [place] [address] Oct, [facility] [address] [id number] [place] [address] Oct, [facility] [address] [id number] [place] [address] Sep, mananz[address]BERTH[address] [id number] [place] [id number] August, [facility] [address] [id number] [place] [address] August, [facility] [address] [id number] [place] [address] Jul, [facility] [address] [id number] [place] [address] Jul, [facility] [address] [id number] [place] [address] 25 Jul, 2012 [facility] [address] [facility] [id number] [place] [address] Jul, [facility] [address] [facility] [id number] [place] [address] 18 Jul, 2012 [facility] [address] [id number] [place] [address] 17 Jul, 2012 [facility] [address] [id number] [place] [address] 16 Jul, 2012 [facility] [address] [facility] [id number] [place] [address] Jun, [facility] [address] [id number] [place] [address] Jun, [facility] [address] [id number] [place] [address] Jun, [facility] [address] [id number] [place] [address] Jun, [facility] [address] [id number] [place] [address] Jun, [facility] [address] [id number] [place] [address] May, [facility] [address] [id number] [place] [address] 18 May, 2012 [facility] [address] [id number] [place] [address] 04 May, 2012 [facility] [address] [id number] [place] [address] 15 Apr, 2012 [facility] [address] [id number] [place] [address] 14 Apr, 2012 [facility] [address] [id number] [place] [address] 07 Apr, 2012 [facility] [address] [id number] [place] [address] Mar, [facility] [address] [id number] [place] [address] 31 Mar, 2012 [facility] [address] [id number] [place] [address] Mar, [facility] [address] [id number] [place] [address] Mar, [facility] [address] [id number] [place] [address] Mar, [facility] [address] [id number] [place] [address] Mar, [facility] [address] [id number] [place] [address] Feb, [facility] [address] [id number] [place] [address] Feb, [facility] [id number] [place] [address] Jan, [facility] [address] [id number] [place] [address] Jan, [facility] [address] [id number] [place] [address] Dec, [facility] [address] [id number] [place] [address] Nov, [facility] [address] [id number] [place] [address] Nov, [facility] [address] [id number] [place] [address] Nov, [facility] [address] [id number] [place] [address] Nov, [facility] [id number] [place] [address] Oct, [facility] [address] [id number] [place] [address] Oct, [facility] [address] [id number] [place] [address] Oct, [facility] [address] [id number] [place] [address] Sep, [facility] [address] [id number] [place] [address] Sep, [facility] [address] [id number] [place] [address] Sep, [facility] [address] [id number] [place] [address] August, [facility] [address] [id number] [place] [address] August, [facility] [address] [id number] [place] [address] Jul, [facility] [address] [id number] [place] [address] Jul, [facility] [address] [id number] [place] [address] Jul, [facility] [address] [id number] [place] [address] Jul, [facility] [address] [id number] [place] [address] Jun, [facility] [address] [id number] [place] [address] May, [facility] [address] [id number] [place] [address] Apr, [facility] [address] [id number] [place] [address] Apr, [facility] [address] [id number] [place] [address] Apr, [facility] [address] [id number] [place] [address] Apr, [facility] [address] [id number] [place] [address] Apr, [facility] [address] [id number] [place] [address] Apr, [facility] [address] [id number] [place] [address] Mar, [facility] [address] [id number] [place] [address] Mar, [facility] [address] [id number] [place] [address] Feb, [facility] [address] [id number] [place] [address] Feb, [facility] [address] [id number] [place] [address] Feb, [facility] [address] [id number] [place] [address] Feb, [facility] [address] [id number] [place] [address] Jan, [facility] [address] [id number] [place] [address] Jan, [facility] [address] [id number] [place] [address] Jan, [facility] [address] [id number] [place] [address] Jan, [facility] [address] [id number] [place] [address] Nov, [facility] [address] [id number] [place] [address] Mar, [facility] [address] [id number] [place] [address] Mar, [facility] [address] [id number] [place] [address] 30 Feb, 2010 [facility] [address] [id number] [place] [address] 15 Feb, 2010 [facility] [address] [id number] [place] [address] Jan, [facility] [id number] [place] [address] 19 Jan, 2010 [facility] [id number] [place] [address] Sep, [facility] [id number] [place] [address] 16 May, 2009 [facility] [id number] [place] [address] Apr, [facility] [id number] [place] [address] Mar, [facility] [address] [address] Feb, [facility] [id number] [place] [address] Feb, [facility] [id number] [place] [address] Feb, [facility] [id number] [place] [address] Jan, [facility] [id number] [place] [address] Jan, [facility] [id number] [place] [address] Jan, [facility] [id number] [place] [address] Jan, [facility] [id number] [place] [address] August, IMMUNIZATIONS No Known Immunizations SOCIAL HISTORY [...] Hospitalization History [facility], indeann webber treatment few times for BH
--- OUTSIDE RECORDS SUMMARY | 2019-09-29 10:36 | XMS REPORT ---
Author Author Cameron Estrella Doctor Organization [facility] Address Unknown Phone Unavailable Care Team Providers Care Associate Professor Of Biostatistics Name Role Phone Migration, Doctor Unavailable Unavailable PROBLEMS Type Condition ICD9-CM Code VBG96-TU Code Onset Dates Condition S tatus SNOMED Code Problem Adjustment disorder, unspecified type F43.20 Active 38468758 Problem Reactive airway disease, unspecified asthma justin rity, uncomplicated J45.909 Active 881921446181 Problem Hypertensive retinopathy of both eyes H35.033 Active 9704975 Problem Open-angle glaucoma of both eyes, unspecified glaucoma stage, unspecified open-angle glaucoma type H40.10X0 Acti ve 19029132 Problem Essential hypertension I10 Active 62448890 Problem Obstructive sleep apnea G47.33 Active 93545263 Problem Intermittent explosive disorder F63.81 Active 67034830 Problem Type 2 diabetes mellitus with complication E11.8 Active 91155347 Problem Bipolar disorder, in partial remission, most rec ent episode manic F31.73 Active 60256902 Problem Intermittent explosive disorder in adult F63.81 Active 23593078 Problem Bipolar disorder, unspecified F31.9 Active 97918516 Problem Neuropathy G62.9 Active 489248649 Problem Diabetes E11.9 Active 44614799 Problem Other specified urinary incontinence N39.498 Active 797885161 Problem Depression F32.9 Active 53691603 Problem 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 Active 23961438 Problem Mild intellectual disability F70 A ctive 51706337 Problem Reactive airway disease, mild intermittent, uncomplicated J45.20 Active 435371509 Problem Gastroesophageal reflux disease without esophagitis K21.9 Active 707180747 Problem Other diabetic neurological complication associated with type 2 diabetes mellitus E11.49 Active 188543879 ALLERGIES No Information ENCOUNTERS Encounter Location Date Diagnosis [facility] [address] [id number] [place] [address] August, [facility] [address] [facility] [place] [address] Jul, [facility] [address] [facility] [place] [address] Jul, [facility] [id number] [place] [address] 10 Jun, 2019 [facility] [address] [facility] [place] [address] 10 Jun, 2019 [facility] [address] [facility] [id number] [address] [place] [address] 04 Jun, 2019 Dysuria R30.0 [facility] [id number] [place] [address] 02 Jun, 2019 [place] [address] [address] 20 May, 2019 Influenza J11.1 [place] [address] [address] 13 May, 2019 Intermittent explosive disorder in adult F63.81 [facility] [id number] [place] [address] May, [facility] [address] [address] Apr, Intermittent explosive disorder in adult F63.81 ; Bipolar disorder, unspecified F31.9 and Mild intellectual disability F70 [facility] [address] [address] [id number] [address] Apr, Oral health maintenance stat us requiring routine preventive dental care K08.9 [facility] [address] [facility] [place] [address] Apr, Type 2 diabetes mellitus with complicati on E11.8 ; History of test for hearing Z92.89 ; Colon cancer screening Z12.11 ; Other specified urinary incontinence N39.498 and Impacted cerumen, right ear H61.21 [facility] [id number] [place] [address] 10 Apr, 2019 Onychomycosis B35.1 ; Other diabetic luc rological complication associated with type 2 diabetes mellitus E11.49 and Tinea pedis of both feet B35.3 [facility] [id number] [place] [address] Feb, [facility] [address] [address] Jan, [facility] [address] [address] Jan, [facility] [address] [address] Jan, [facility] [address] [address] Jan, [facility] [address] [address] Jan, [facility] [address] [address] Jan, [facility] [address] [address] Jan, [facility] [id number] [place] [address] Jan, Anemia D64.9 [facility] [address] [facility] [address] [id number] [place] [address] Jan, Dental examination Z01.20 an d Oral health maintenance status requiring routine preventive dental care K08.9 [facility] [address] [address] Jan, Onychomycosis B35.1 and Other diabetic n eurological complication associated with type 2 diabetes mellitus E11.49 [facility] [address] [address] Jan, Anemia D64.9 [facility] [address] [address] Jan, [facility] [address] [address] Dec, Urinary tract infection without hematuri a, site unspecified N39.0 [place] [address] [address] 30 Dec, 2018 Type 2 diabetes mellitus with complicati on E11.8 ; Urinary tract infection without hematuria, site unspecified N39.0 ; Impacted cerumen of both ears H61.23 ; Encounter for immunization Z23 and Hyponatremia E87.1 [place] [address] [address] Dec, Intermittent explosive disorder in adult F63.81 ; Dysuria R30.0 ; Type 2 diabetes mellitus with complication E11.8 ; Bipolar disorder, unspecified F31.9 and Mild intellectual disability F70 [place] [address] [address] Dec, Dysuria R30.0 [place] [address] [address] Dec, Intermittent explosive disorder in adult F63.81 ; Bipolar disorder, unspecified F31.9 and Mild intellectual disability F70 [place] [address] [address] Nov, [place] [address] [address] Oct, [facility] [address] [address] [id number] [place] [address] Oct, Oral health maintenance stat us requiring routine preventive dental care K08.9 [place] [address] [address] August, Intermittent explosive disorder in adult F63.81 ; Bipolar disorder, unspecified F31.9 and Mild intellectual disability F70 [facility] [address] [facility] [id number] [place] [id number] August, Dental caries K02.9 [facility] [address] [address] Jul, Onychomycosis B35.1 ; Other diabetic luc rological complication associated with type 2 diabetes mellitus E11.49 and Tinea pedis of both feet B35.3 [facility] [address] [id number] Jul, Caries K02.9 [facility] [address] [address] 15 Jul, 2018 Type 2 diabetes mellitus with complicati on E11.8 ; Tobacco abuse Z72.0 and Bipolar disorder, unspecified F31.9 [facility] [address] [address] Jun, [facility] [address] [id number] Jun, Dental examination Z01.20 and Oral healt h maintenance status requiring routine preventive dental care K08.9 [place] [address] [address] May, Bilateral impacted cerumen H61.23 [facility] [address] [address] Apr, Bipolar disorder, unspecified F31.9 ; In termittent explosive disorder in adult F63.81 ; Type 2 diabetes mellitus with complication E11.8 ; Tobacco abuse Z72.0 and Colon cancer screening Z12.11 [place] [address] [address] Apr, Onychomycosis B35.1 and Other diabetic n eurological complication associated with type 2 diabetes mellitus E11.49 [facility] [address] [address] Apr, Intermittent explosive disorder in adult F63.81 ; Bipolar disorder, unspecified F31.9 and Mild intellectual disability F70 [place] [address] [address] Mar, Diabetes E11.9 [facility] [address] [facility] [id number] [address] [place] [address] 20 Oct, 2018 Encounter for immunization Z 23 [place] [address] [address] Jan, Tinea pedis of both feet B35.3 ; Other d iabetic neurological complication associated with type 2 diabetes mellitus E11.49 and Onychomycosis B35.1 [place] [address] [address] Nov, Type 2 diabetes mellitus with complicati on E11.8 [place] [address] [address] Nov, [place] [address] [address] Oct, Intermittent explosive disorder in adult F63.81 ; Bipolar disorder, unspecified F31.9 and Mild intellectual disability F70 [place] [address] [address] Oct, [facility] [address] [id number] Oct, Dental examination Z01.20 [place] [address] [address] Oct, Onychomycosis B35.1 and Other diabetic n eurological complication associated with type 2 diabetes mellitus E11.49 [place] [address] [address] Sep, Type 2 diabetes mellitus with complicati on E11.8 and Colon cancer screening Z12.11 [place] [address] [address] Sep, Type 2 diabetes mellitus with complicati on E11.8 ; Colon cancer screening Z12.11 and Neuropathy G62.9 [place] [address] [address] August, Diabetes E11.9 [facility] [address] [id number] Jul, Dental examination Z01.20 [place] [address] [address] May, Mild intellectual disability F70 [place] [address] [address] May, Mild intellectual disability F70 ; High risk medication use Z79.899 ; Intermittent explosive disorder in adult F63.81 and Bipolar disorder, unspecified F31.9 [place] [address] [address] May, [place] [address] [address] May, [place] [address] [address] Apr, Type 2 diabetes mellitus with complicati on E11.8 ; Mild intellectual disability F70 ; Gastroesophageal reflux disease without esophagitis K21.9 ; Reactive airway disease, mild intermittent, uncomplicated J45.20 and Tobacco abuse Z72.[address] [address] Apr, High risk medication use Z79.899 ; Mild intellectual disability F70 ; Intermittent explosive disorder in adult F63.81 and Bipolar disorder, unspecified F31.9 [facility] [address] [id number] Mar, Encounter for dental exam and cleaning w /o abnormal findings Z01.20 [facility] [address] [id number] Mar, Dental examination Z01.20 [place] [address] [address] Jan, [place] [address] [address] Jan, [place] [address] [address] Jan, Mild intellectual disability F70 ; Bipol ar disorder, unspecified F31.9 and Intermittent explosive disorder in adult F63.81 [place] [address] [address] 02 Jan, 2017 Diabetes E11.9 [facility] [address] [id number] Dec, Encounter for dental examination and osei aning without abnormal findings Z01.20 [facility] [address] [address] 12 Dec, 2016 Bipolar disorder, unspecified F31.9 ; In termittent explosive disorder in adult F63.81 and Mild intellectual disability F70 [facility] [address] [address] Nov, Diabetes E11.9 [facility] [address] [address] Nov, [facility] [address] [address] Nov, Diabetes E11.9 and Colon cancer screenin g Z12.[address] [address] Sep, Dental examination Z01.20 [facility] [address] [id number] 21 Sep, 2016 Encounter for dental examination and osei aning without abnormal findings Z01.20 [facility] [address] [address] Sep, Bipolar disorder, unspecified F31.9 [facility] [address] [address] Sep, Bipolar disorder, unspecified F31.9 [facility] [address] [address] Jul, [facility] [address] [address] Jul, Type 2 diabetes mellitus with complicati on E11.8 [facility] [address] [id number] Jun, Encounter for dental examination and osei aning without abnormal findings Z01.20 [facility] [address] [id number] [facility] [place] [id number] 15 Jun, 2016 Dental examination Z01.20 [facility] [address] [address] 18 Apr, 2016 Sports physical Z02.5 [place] [address] [address] 14 Mar, 2016 Bipolar disorder, in partial remission, most recent episode manic F31.73 and Intermittent explosive disorder in adult F63.81 [facility] [address] [address] 08 Mar, 2016 [place] [address] [address] Mar, Diabetes E11.9 [facility] [address] [id number] Feb, Encounter for dental examination and osei aning without abnormal findings Z01.20 [facility] [address] [address] 22 Dec, 2015 Nocturnal hypoxemia G47.34 and Encounter for immunization Z23 [place] [address] [address] 15 Dec, 2015 [facility] [address] [address] Dec, [facility] [address] [address] Dec, Bipolar disorder, unspecified F31.9 [facility] [address] [id number] Oct, Encounter for dental examination and osei aning without abnormal findings Z01.20 [facility] [address] [id number] [facility] [place] [id number] Oct, Dental examination Z01.20 [facility] [address] [address] 07 Oct, 2015 Diabetes E11.9 [place] [address] [address] Oct, Diabetes E11.9 ; Reactive airway disease , mild intermittent, uncomplicated J45.20 and Tobacco abuse Z72.0 [place] [address] [address] Sep, Bipolar disorder, unspecified F31.9 and Depression F32.9 [place] [address] [address] Sep, [place] [address] [address] August, Tinea pedis of both feet B35.3 and DM w/ o complication type II, uncontrolled E11.65 [place] [address] [address] Jul, [place] [address] [address] Jul, [place] [address] [address] Jul, Obstructive sleep apnea G47.[address] [address] Jun, Diabetes E11.9 [place] [address] [address] Jun, [place] [address] [address] Jun, [address] [address] Jun, Bipolar disorder, unspecified F31.9 and Mental retardation F79 [place] [address] [address] Apr, [address] [address] Feb, Diabetes E11.9 ; Encounter for immunizat ion Z23 ; Cough R05 and Nicotine abuse Z72.0 [facility] [address] [address] Jan, Bipolar disorder, unspecified F31.9 and Diabetes mellitus without mention of complication, type II or unspecified type, uncontrolled 250.02 [facility] [address] [address] Jan, [facility] [address] [address] Dec, Reactive airway disease 493.90 and Enure sis 788.30 [facility] [address] [address] Dec, [place] [address] [address] Nov, [place] [address] [address] Nov, [place] [address] [address] Nov, Annual physical exam V70.0 ; Urinary inc ontinence 788.30 ; Diabetes 250.00 and Hypertension 401.9 [place] [address] [address] Oct, Diabetes mellitus without mention of com plication, type II or unspecified type, uncontrolled 250.02 [place] [address] [address] Oct, Diabetes mellitus without mention of com plication, type II or unspecified type, uncontrolled 250.02 [facility] [address] [address] Oct, Diabetes mellitus without mention of com plication, type II or unspecified type, uncontrolled 250.02 [facility] [address] [address] Oct, [facility] [address] [address] Oct, [facility] [id number] [place] [address] Oct, Bipolar disorder, unspecified 296.80 [facility] [address] [id number] Sep, Dental examination V72.2 [facility] [id number] [place] [address] August, [facility] [address] [id number] August, Dental examination V72.2 [facility] [id number] [place] [address] August, [facility] [address] [address] Jul, [facility] [id number] [place] [address] Jul, [facility] [id number] [place] [address] Jun, [facility] [id number] [place] [address] Jun, [facility] [address] [address] Jun, [facility] [id number] [place] [address] Jun, [facility] [address] [address] May, [facility] [id number] [place] [address] May, [facility] [address] [address] May, [facility] [id number] [place] [address] May, [facility] [id number] [place] [address] May, [facility] [address] [id number] [place] [address] 16 May, 2014 [facility] [address] [facility] [id number] [place] [address] May, 2014 [facility] [address] [facility] [id number] [place] [address] May, 2014 [facility] [address] [id number] [place] [address] May, 2014 [facility] [address] [facility] [id number] [place] [address] May, 2014 [facility] [address] [facility] [id number] [place] [address] May, 2014 [facility] [address] [facility] [id number] [place] [address] May, 2014 [facility] [address] [facility] [id number] [place] [address] May, 2014 [facility] [address] [id number] [place] [address] May, 2014 [facility] [address] [facility] [id number] [place] [address] May, 2014 [facility] [address] [facility] [id number] [place] [address] Apr, [facility] [address] [id number] [place] [address] Apr, [facility] [address] [id number] [place] [address] Apr, [facility] [address] [id number] [place] [address] Apr, [facility] [address] [id number] [place] [address] Apr, [facility] [address] [id number] [place] [address] Apr, [facility] [address] [id number] [place] [address] Apr, [facility] [address] [facility] [id number] [place] [address] Apr, [facility] [address] [id number] [place] [address] Apr, [facility] [address] [id number] [place] [address] Apr, [facility] [address] [id number] [place] [address] Apr, [facility] [address] [id number] [place] [address] Apr, [facility] [address] [id number] [place] [address] Mar, [facility] [address] [id number] [place] [address] Mar, [facility] [address] [id number] [place] [address] Mar, [facility] [address] [id number] [place] [address] Mar, [facility] [address] [id number] [place] [address] Mar, [facility] [address] [id number] [place] [address] Mar, [facility] [address] [id number] [place] [address] Feb, [facility] [address] [id number] [place] [address] Feb, [facility] [address] [id number] [place] [address] Feb, [facility] [address] [id number] [place] [address] 13 Feb, 2014 [facility] [address] [id number] [place] [address] 14 Jan, 2014 [facility] [address] [facility] [id number] [place] [address] 14 Jan, 2014 [facility] [address] [facility] [id number] [place] [address] 14 Jan, 2014 [facility] [address] [facility] [id number] [place] [address] 14 Jan, 2014 [facility] [address] [facility] [id number] [place] [address] Dec, [facility] [address] [facility] [id number] [place] [address] 22 Dec, 2013 [facility] [address] [facility] [id number] [place] [address] 15 Dec, 2013 [facility] [address] [id number] [place] [address] 15 Dec, 2013 [facility] [address] [id number] [place] [address] Nov, [facility] [address] [id number] [place] [address] Nov, [facility] [address] [facility] [id number] [place] [address] Nov, [facility] [address] [id number] [place] [address] Nov, [facility] [address] [id number] [place] [address] Nov, [facility] [address] [id number] [place] [address] Nov, [facility] [address] [facility] [id number] [place] [address] Nov, [facility] [address] [id number] [place] [address] Oct, [facility] [address] [facility] [id number] [place] [address] Oct, [facility] [address] [id number] [place] [address] Oct, [facility] [address] [id number] [place] [address] Oct, [facility] [address] [facility] [id number] [place] [address] Oct, [facility] [address] [facility] [id number] [place] [address] Oct, [facility] [address] [id number] [place] [address] Oct, [facility] [address] [facility] [id number] [place] [address] Sep, [facility] [address] [id number] [place] [address] Sep, [facility] [address] [id number] [place] [address] Sep, [facility] [address] [id number] [place] [address] Sep, [facility] [address] [id number] [place] [address] Sep, [facility] [address] [id number] [place] [address] Jul, [facility] [address] [id number] [place] [address] Jul, [facility] [address] [id number] [place] [address] Jul, [facility] [address] [facility] [id number] [place] [address] Jul, [facility] [address] [id number] [place] [address] 15 Jul, 2013 [facility] [address] [id number] [place] [address] Jul, [facility] [facility] [id number] [place] [address] Jul, [facility] [id number] [place] [address] Jul, [facility] [address] [facility] [id number] [place] [address] Jul, [facility] [address] [facility] [id number] [place] [address] Jul, [facility] [id number] [place] [address] Jul, [facility] [id number] [place] [address] Jul, [facility] [id number] [place] [address] Jun, [facility] [id number] [place] [address] Jun, [facility] [id number] [place] [address] Jun, [facility] [id number] [place] [address] Jun, [facility] [id number] [place] [address] Jun, [facility] [id number] [place] [address] Jun, [facility] [id number] [place] [address] Jun, [facility] [id number] [place] [address] Jun, [facility] [address] [facility] [id number] [place] [address] May, [facility] [id number] [place] [address] May, [facility] [id number] [place] [address] May, [facility] [id number] [place] [address] May, [facility] [id number] [place] [address] May, [facility] [id number] [place] [address] May, [facility] [id number] [place] [address] May, [facility] [id number] [place] [address] May, [facility] [id number] [place] [address] Apr, [facility] [id number] [place] [address] Apr, [facility] [id number] [place] [address] Apr, [facility] [id number] [place] [address] Apr, [facility] [id number] [place] [address] Mar, [facility] [id number] [place] [address] Mar, [facility] [id number] [place] [address] Mar, [facility] [id number] [place] [address] Feb, [facility] [id number] [place] [address] Feb, [facility] [id number] [place] [address] Feb, [facility] [id number] [place] [address] Feb, [facility] [id number] [place] [address] Feb, [facility] [id number] [place] [address] Feb, [facility] [address] [facility] [id number] [place] [address] Jan, [facility] [address] [facility] [id number] [place] [address] Jan, [facility] [id number] [place] [address] Jan, [facility] [id number] [place] [address] Jan, [facility] [address] [facility] [id number] [place] [address] Jan, [facility] [id number] [place] [address] Jan, [facility] [id number] [place] [address] Jan, [facility] [id number] [place] [address] 25 Dec, 2012 [facility] [id number] [place] [address] 16 Dec, 2012 [facility] [id number] [place] [address] 10 Dec, 2012 [facility] [id number] [place] [address] 05 Dec, 2012 [facility] [id number] [place] [address] Nov, [facility] [id number] [place] [address] Nov, [facility] [id number] [place] [address] Nov, [facility] [id number] [place] [address] Nov, [facility] [id number] [place] [address] Nov, [facility] [id number] [place] [address] Nov, [facility] [id number] [place] [address] Nov, [facility] [id number] [place] [address] Oct, [facility] [id number] [place] [address] Oct, [facility] [id number] [place] [address] Oct, [facility] [id number] [place] [address] Oct, [facility] [id number] [place] [address] Oct, [facility] [id number] [place] [address] Oct, [facility] [id number] [place] [address] Oct, [facility] [id number] [place] [address] Oct, [facility] [id number] [place] [address] Sep, mananzCHBERTHA PEREZ [address] [facility] [id number] [place] [id number] August, [facility] [id number] [place] [address] August, [facility] [id number] [place] [address] Jul, [facility] [id number] [place] [address] Jul, [facility] [id number] [place] [address] Jul, [facility] [id number] [place] [address] 22 Jul, 2012 [facility] [address] [facility] [id number] [place] [address] 18 Jul, 2012 [facility] [address] [facility] [id number] [place] [address] 17 Jul, 2012 [facility] [id number] [place] [address] 16 Jul, 2012 [facility] [id number] [place] [address] 21 Jun, 2012 [facility] [address] [facility] [id number] [place] [address] 18 Jun, 2012 [facility] [id number] [place] [address] 11 Jun, 2012 [facility] [id number] [place] [address] 04 Jun, 2012 [facility] [id number] [place] [address] 04 Jun, 2012 [facility] [id number] [place] [address] May, [facility] [id number] [place] [address] 18 May, 2012 [facility] [id number] [place] [address] 04 May, 2012 [facility] [id number] [place] [address] 15 Apr, 2012 [facility] [id number] [place] [address] 14 Apr, 2012 [facility] [id number] [place] [address] 07 Apr, 2012 [facility] [id number] [place] [address] Mar, [facility] [id number] [place] [address] Mar, [facility] [id number] [place] [address] Mar, [facility] [id number] [place] [address] Mar, [facility] [id number] [place] [address] Mar, [facility] [id number] [place] [address] Mar, [facility] [id number] [place] [address] Feb, [facility] [id number] [place] [address] Feb, [facility] [id number] [place] [address] Jan, [facility] [id number] [place] [address] Jan, [facility] [id number] [place] [address] Dec, [facility] [id number] [place] [address] Nov, [facility] [id number] [place] [address] Nov, [facility] [id number] [place] [address] Nov, [facility] [id number] [place] [address] Nov, [facility] [id number] [place] [address] Oct, [facility] [id number] [place] [address] Oct, [facility] [id number] [place] [address] Oct, [facility] [id number] [place] [address] Sep, [facility] [id number] [place] [address] Sep, [facility] [id number] [place] [address] Sep, [facility] [id number] [place] [address] August, [facility] [id number] [place] [address] August, [facility] [id number] [place] [address] Jul, [facility] [id number] [place] [address] Jul, [facility] [id number] [place] [address] Jul, [facility] [id number] [place] [address] Jul, [facility] [id number] [place] [address] Jun, [facility] [id number] [place] [address] May, [facility] [id number] [place] [address] Apr, [facility] [id number] [place] [address] Apr, [facility] [id number] [place] [address] Apr, [facility] [id number] [place] [address] Apr, [facility] [id number] [place] [address] Apr, [facility] [id number] [place] [address] Apr, [facility] [id number] [place] [address] Mar, [facility] [id number] [place] [address] Mar, [facility] [id number] [place] [address] Feb, [facility] [id number] [place] [address] Feb, [facility] [id number] [place] [address] Feb, [facility] [address] [id number] [place] [address] Feb, [facility] [id number] [place] [address] Jan, [facility] [id number] [place] [address] Jan, [facility] [id number] [place] [address] Jan, [facility] [id number] [place] [address] Jan, [facility] [id number] [place] [address] Nov, [facility] [id number] [place] [address] Mar, [facility] [address] [id number] [place] [address] Mar, [facility] [id number] [place] [address] 30 Feb, 2010 [facility] [id number] [place] [address] 15 Feb, 2010 [facility] [id number] [place] [address] Jan, [facility] [address] [id number] [place] [address] Jan, [facility] [id number] [place] [address] 15 Sep, 2009 [facility] [id number] [place] [address] 16 May, 2009 [facility] [id number] [place] [address] Apr, [facility] [id number] [place] [address] Mar, [facility] [id number] [place] [address] Feb, [facility] [id number] [place] [address] Feb, [facility] [id number] [place] [address] Feb, [facility] [id number] [place] [address] Jan, [facility] [id number] [place] [address] Jan, [facility] [id number] [place] [address] Jan, [facility] [id number] [place] [address] Jan, [facility] [id number] [place] [address] August, IMMUNIZATIONS No Known Immunizations SOCIAL HISTORY [...] age 6 Hospitalization History surgery Hospitalization History [facility]
--- OUTSIDE RECORDS SUMMARY | 2019-09-29 10:36 | XMS REPORT ---
Author Author Cameron ALANIZ [facility] Address [address] [place] [address] Care Team Providers Care Blacksmith Supervisor Name Role Phone JEET ALANIZ Unavailable PROBLEMS Type Condition ICD9-CM Code LDI33-VL Code Onset Dates Condition S tatus SNOMED Code Problem Adjustment disorder, unspecified type F43.20 Active 61729041 Problem Reactive airway disease, unspecified asthma justin rity, uncomplicated J45.909 Active 397881168770 Problem Hypertensive retinopathy of both eyes H35.033 Active 8055282 Problem Open-angle glaucoma of both eyes, unspecified glaucoma stage, unspecified open-angle glaucoma type H40.10X0 Acti ve 70038819 Problem Essential hypertension I10 Active 18078080 Problem Obstructive sleep apnea G47.33 Active 37351154 Problem Intermittent explosive disorder F63.81 Active 56540621 Problem Type 2 diabetes mellitus with complication E11.8 Active 26297449 Problem Bipolar disorder, in partial remission, most rec ent episode manic F31.73 Active 89784348 Problem Intermittent explosive disorder in adult F63.81 Active 74744826 Problem Bipolar disorder, unspecified F31.9 Active 83178719 Problem Neuropathy G62.9 Active 285281760 Problem Diabetes E11.9 Active 82992405 Problem Other specified urinary incontinence N39.498 Active 129997707 Problem Depression F32.9 Active 22776570 Problem 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 Active 65937747 Problem Mild intellectual disability F70 A ctive 73825578 Problem Reactive airway disease, mild intermittent, uncomplicated J45.20 Active 233196405 Problem Gastroesophageal reflux disease without esophagitis K21.9 Active 698459020 Problem Other diabetic neurological complication associated with type 2 diabetes mellitus E11.49 Active 480305018 ALLERGIES No Information ENCOUNTERS Encounter Location Date Diagnosis [facility] [address] [id number] [place] [address] August, [facility] [id number] [place] [address] Jul, [facility] [address] [address] Jul, [facility] [address] [address] 10 Jun, 2019 [facility] [address] [address] Jun, [facility] [address] [facility] [id number] [place] [address] 04 Jun, 2019 Dysuria R30.0 [facility] [address] [address] 02 Jun, 2019 [facility] [address] [address] 20 May, 2019 Influenza J11.1 [facility] [address] [address] 13 May, 2019 Intermittent explosive disorder in adult F63.81 [facility] [address] [address] 12 May, 2019 [facility] [address] [address] Apr, Intermittent explosive disorder in adult F63.81 ; Bipolar disorder, unspecified F31.9 and Mild intellectual disability F70 [facility] [address] [address] [id number] [address] Apr, Oral health maintenance stat us requiring routine preventive dental care K08.9 [facility] [address] [address] Apr, Type 2 diabetes mellitus with complicati on E11.8 ; History of test for hearing Z92.89 ; Colon cancer screening Z12.11 ; Other specified urinary incontinence N39.498 and Impacted cerumen, right ear H61.21 [facility] [address] [place] [address] Apr, Onychomycosis B35.1 ; Other diabetic luc rological complication associated with type 2 diabetes mellitus E11.49 and Tinea pedis of both feet B35.3 [facility] [address] [address] Feb, [facility] [address] [address] Jan, [facility] [address] [address] Jan, [facility] [address] [address] Jan, [facility] [address] [address] Jan, [facility] [address] [address] Jan, [facility] [address] [address] Jan, [facility] [address] [address] Jan, [facility] [address] [address] Jan, Anemia D64.9 [facility] [address] [facility] [address] [id number] [address] Jan, Dental examination Z01.20 an d Oral health maintenance status requiring routine preventive dental care K08.9 [facility] [address] [address] Jan, Onychomycosis B35.1 and Other diabetic n eurological complication associated with type 2 diabetes mellitus E11.49 [facility] [address] [address] Jan, Anemia D64.9 [facility] [address] [address] Jan, [facility] [address] [address] Dec, Urinary tract infection without hematuri a, site unspecified N39.0 [facility] [address] [address] Dec, Type 2 diabetes mellitus with complicati on E11.8 ; Urinary tract infection without hematuria, site unspecified N39.0 ; Impacted cerumen of both ears H61.23 ; Encounter for immunization Z23 and Hyponatremia E87.1 [facility] [address] [address] Dec, Intermittent explosive disorder in adult F63.81 ; Dysuria R30.0 ; Type 2 diabetes mellitus with complication E11.8 ; Bipolar disorder, unspecified F31.9 and Mild intellectual disability F70 [address] [address] Dec, Dysuria R30.0 [facility] [address] [address] Dec, Intermittent explosive disorder in adult F63.81 ; Bipolar disorder, unspecified F31.9 and Mild intellectual disability F70 [facility] [id number] [place] [address] Nov, [address] [address] [address] Oct, [facility] [address] [address] [id number] [place] [address] Oct, Oral health maintenance stat us requiring routine preventive dental care K08.9 [facility] [address] [address] August, Intermittent explosive disorder in adult F63.81 ; Bipolar disorder, unspecified F31.9 and Mild intellectual disability F70 [facility] [address] [facility] [id number] [place] [id number] August, Dental caries K02.9 [facility] [address] [address] Jul, Onychomycosis B35.1 ; Other diabetic luc rological complication associated with type 2 diabetes mellitus E11.49 and Tinea pedis of both feet B35.3 [facility] [address] [id number] Jul, Caries K02.9 [place] [address] [address] Jul, Type 2 diabetes mellitus with complicati on E11.8 ; Tobacco abuse Z72.0 and Bipolar disorder, unspecified F31.9 [place] [address] [address] Jun, [facility] [address] [id number] Jun, Dental examination Z01.20 and Oral healt h maintenance status requiring routine preventive dental care K08.9 [place] [address] [address] May, Bilateral impacted cerumen H61.[address] [address] Apr, Bipolar disorder, unspecified F31.9 ; In termittent explosive disorder in adult F63.81 ; Type 2 diabetes mellitus with complication E11.8 ; Tobacco abuse Z72.0 and Colon cancer screening Z12.11 [place] [address] [address] Apr, Onychomycosis B35.1 and Other diabetic n eurological complication associated with type 2 diabetes mellitus E11.[address] [address] Apr, Intermittent explosive disorder in adult F63.81 ; Bipolar disorder, unspecified F31.9 and Mild intellectual disability F70 [address] [address] [address] Mar, Diabetes E11.9 [facility] [address] [facility] [id number] [address] [place] [address] Jan, Encounter for immunization Z 23 [place] [address] [address] 12 Jan, 2018 Tinea pedis of both feet B35.3 ; Other d iabetic neurological complication associated with type 2 diabetes mellitus E11.49 and Onychomycosis B35.1 [place] [address] [address] Nov, Type 2 diabetes mellitus with complicati on E11.8 [place] [address] [address] Nov, [place] [address] [address] Oct, Intermittent explosive disorder in adult F63.81 ; Bipolar disorder, unspecified F31.9 and Mild intellectual disability F70 [address] [address] Oct, [facility] [address] [id number] Oct, Dental examination Z01.20 [place] [address] [address] Oct, Onychomycosis B35.1 and Other diabetic n eurological complication associated with type 2 diabetes mellitus E11.49 [place] [address] [address] Sep, Type 2 diabetes mellitus with complicati on E11.8 and Colon cancer screening Z12.11 [place] [address] [address] Sep, Type 2 diabetes mellitus with complicati on E11.8 ; Colon cancer screening Z12.11 and Neuropathy G62.9 [place] [address] [address] August, Diabetes E11.9 [facility] [address] [id number] Jul, Dental examination Z01.20 [facility] [address] [address] May, Mild intellectual disability F70 [facility] [address] [address] May, Mild intellectual disability F70 ; High risk medication use Z79.899 ; Intermittent explosive disorder in adult F63.81 and Bipolar disorder, unspecified F31.9 [facility] [address] [address] May, [facility] [address] [address] May, [facility] [address] [address] Apr, Type 2 diabetes mellitus with complicati on E11.8 ; Mild intellectual disability F70 ; Gastroesophageal reflux disease without esophagitis K21.9 ; Reactive airway disease, mild intermittent, uncomplicated J45.20 and Tobacco abuse Z72.0 [facility] [address] [address] Apr, High risk medication use Z79.899 ; Mild intellectual disability F70 ; Intermittent explosive disorder in adult F63.81 and Bipolar disorder, unspecified F31.9 [facility] [address] [id number] Mar, Encounter for dental exam and cleaning w /o abnormal findings Z01.20 [facility] [address] [id number] Mar, Dental examination Z01.20 [facility] [address] [address] Jan, [facility] [address] [address] Jan, [facility] [address] [address] Jan, Mild intellectual disability F70 ; Bipol ar disorder, unspecified F31.9 and Intermittent explosive disorder in adult F63.81 [facility] [address] [address] 02 Jan, 2017 Diabetes E11.9 [facility] [address] [id number] [place] [address] 13 Dec, 2016 Encounter for dental examination and osei aning without abnormal findings Z01.20 [facility] [address] [address] 12 Dec, 2016 Bipolar disorder, unspecified F31.9 ; In termittent explosive disorder in adult F63.81 and Mild intellectual disability F70 [facility] [address] [address] 25 Nov, 2016 Diabetes E11.9 [facility] [address] [address] Nov, [facility] [address] [address] Nov, Diabetes E11.9 and Colon cancer screenin g Z12.[address] [id number] Sep, Dental examination Z01.20 [facility] [id number] [place] [id number] 21 Sep, 2016 Encounter for dental examination and osei aning without abnormal findings Z01.20 [facility] [address] [address] 13 Sep, 2016 Bipolar disorder, unspecified F31.9 [facility] [address] [address] Sep, Bipolar disorder, unspecified F31.9 [facility] [address] [address] Jul, [facility] [address] [address] Jul, Type 2 diabetes mellitus with complicati on E11.8 [facility] [address] [id number] 15 Jun, 2016 Encounter for dental examination and osei aning without abnormal findings Z01.20 [facility] [address] [id number] [id number] 15 Jun, 2016 Dental examination Z01.20 [facility] [address] [id number] 18 Apr, 2016 Sports physical Z02.5 [facility] [address] [address] 14 Mar, 2016 Bipolar disorder, in partial remission, most recent episode manic F31.73 and Intermittent explosive disorder in adult F63.81 [facility] [address] [id number] 08 Mar, 2016 [facility] [address] [address] 06 Mar, 2016 Diabetes E11.9 [facility] [address] [id number] Feb, Encounter for dental examination and osei aning without abnormal findings Z01.20 [facility] [address] [address] 22 Dec, 2015 Nocturnal hypoxemia G47.34 and Encounter for immunization Z23 [facility] [address] [address] 15 Dec, 2015 [facility] [address] [address] Dec, [facility] [address] [address] Dec, Bipolar disorder, unspecified F31.9 [facility] [address] [id number] Oct, Encounter for dental examination and osei aning without abnormal findings Z01.20 [facility] [address] [id number] [id number] Oct, Dental examination Z01.20 [place] [address] [address] Oct, Diabetes E11.9 [place] [address] [address] Oct, Diabetes E11.9 ; Reactive airway disease , mild intermittent, uncomplicated J45.20 and Tobacco abuse Z72.0 [place] [address] [address] Sep, Bipolar disorder, unspecified F31.9 and Depression F32.9 [place] [address] [address] Sep, [place] [address] [address] August, Tinea pedis of both feet B35.3 and DM w/ o complication type II, uncontrolled E11.65 [place] [address] [address] Jul, [place] [address] [address] Jul, [place] [address] [address] Jul, Obstructive sleep apnea G47.33 [place] [address] [address] Jun, Diabetes E11.9 [place] [address] [address] Jun, [place] [address] [address] Jun, [place] [address] [address] Jun, Bipolar disorder, unspecified F31.9 and Mental retardation F79 [address] [place] [address] Apr, [place] [address] [address] Feb, Diabetes E11.9 ; Encounter for immunizat ion Z23 ; Cough R05 and Nicotine abuse Z72.[address] [address] Jan, Bipolar disorder, unspecified F31.9 and Diabetes mellitus without mention of complication, type II or unspecified type, uncontrolled 250.[address] [address] Jan, [address] [address] Dec, Reactive airway disease 493.90 and Enure sis 788.[address] [address] Dec, [address] [address] Nov, [address] [address] Nov, [address] [address] Nov, Annual physical exam V70.0 ; Urinary inc ontinence 788.30 ; Diabetes 250.00 and Hypertension 401.[address] [address] Oct, Diabetes mellitus without mention of com plication, type II or unspecified type, uncontrolled 250.[address] [address] Oct, Diabetes mellitus without mention of com plication, type II or unspecified type, uncontrolled 250.[address] [address] Oct, Diabetes mellitus without mention of com plication, type II or unspecified type, uncontrolled 250.[address] [address] Oct, [address] [id number] [place] [address] Oct, [facility] [id number] [place] [address] Oct, Bipolar disorder, unspecified 296.80 [facility] [address] [id number] [place] [id number] Sep, Dental examination V72.2 [facility] [id number] [place] [address] August, [facility] [address] [id number] [place] [id number] August, Dental examination V72.2 [facility] [id number] [place] [address] August, [facility] [id number] [place] [address] Jul, [facility] [id number] [place] [address] Jul, [facility] [id number] [place] [address] Jun, [facility] [id number] [place] [address] Jun, [facility] [id number] [place] [address] Jun, [facility] [id number] [place] [address] Jun, [facility] [id number] [place] [address] May, [facility] [id number] [place] [address] May, [facility] [id number] [place] [address] May, [facility] [id number] [place] [address] May, [facility] [address] [id number] [place] [address] 16 May, 2014 [facility] [address] [id number] [place] [address] May, 2014 [facility] [address] [id number] [place] [address] 16 May, 2014 [facility] [address] [id number] [place] [address] May, 2014 [facility] [address] [id number] [place] [address] May, 2014 [facility] [address] [id number] [place] [address] May, 2014 [facility] [address] [id number] [place] [address] May, 2014 [facility] [address] [id number] [place] [address] May, 2014 [facility] [address] [id number] [place] [address] May, 2014 [facility] [address] [id number] [place] [address] May, 2014 [facility] [address] [id number] [place] [address] May, 2014 [facility] [address] [id number] [place] [address] Apr, [facility] [address] [id number] [place] [address] Apr, [facility] [address] [id number] [place] [address] Apr, [facility] [address] [id number] [place] [address] Apr, [facility] [address] [id number] [place] [address] Apr, [facility] [address] [id number] [place] [address] Apr, [facility] [address] [facility] [id number] [place] [address] Apr, [facility] [address] [facility] [id number] [place] [address] Apr, [facility] [address] [id number] [place] [address] Apr, [facility] [address] [id number] [place] [address] Apr, [facility] [address] [id number] [place] [address] Apr, [facility] [address] [id number] [place] [address] Apr, [facility] [address] [id number] [place] [address] Mar, [facility] [address] [id number] [place] [address] Mar, [facility] [address] [id number] [place] [address] Mar, [facility] [address] [id number] [place] [address] Mar, [facility] [address] [id number] [place] [address] Mar, [facility] [address] [id number] [place] [address] Mar, [facility] [address] [id number] [place] [address] Feb, [facility] [address] [id number] [place] [address] Feb, [facility] [address] [id number] [place] [address] Feb, [facility] [address] [id number] [place] [address] Feb, [facility] [address] [facility] [id number] [place] [address] 14 Jan, 2014 [facility] [address] [facility] [id number] [place] [address] 14 Jan, 2014 [facility] [address] [facility] [id number] [place] [address] 14 Jan, 2014 [facility] [address] [facility] [id number] [place] [address] 14 Jan, 2014 [facility] [address] [facility] [id number] [place] [address] 22 Dec, 2013 [facility] [address] [facility] [id number] [place] [address] 22 Dec, 2013 [facility] [address] [id number] [place] [address] 15 Dec, 2013 [facility] [address] [id number] [place] [address] 15 Dec, 2013 [facility] [address] [id number] [place] [address] Nov, [facility] [address] [facility] [id number] [place] [address] Nov, [facility] [address] [id number] [place] [address] Nov, [facility] [address] [id number] [place] [address] Nov, [facility] [address] [id number] [place] [address] Nov, [facility] [address] [facility] [id number] [place] [address] Nov, [facility] [address] [id number] [place] [address] Nov, [facility] [address] [facility] [id number] [place] [address] Oct, [facility] [address] [id number] [place] [address] Oct, [facility] [address] [id number] [place] [address] Oct, [facility] [address] [id number] [place] [address] Oct, [facility] [address] [facility] [id number] [place] [address] Oct, [facility] [address] [id number] [place] [address] Oct, [facility] [address] [facility] [id number] [place] [address] Oct, [facility] [address] [id number] [place] [address] Sep, [facility] [address] [id number] [place] [address] Sep, [facility] [address] [id number] [place] [address] Sep, [facility] [address] [id number] [place] [address] Sep, [facility] [address] [id number] [place] [address] Sep, [facility] [address] [id number] [place] [address] Jul, [facility] [address] [id number] [place] [address] Jul, [facility] [address] [facility] [id number] [place] [address] Jul, [facility] [address] [id number] [place] [address] Jul, [facility] [address] [id number] [place] [address] 15 Jul, 2013 [facility] [address] [id number] [place] [address] Jul, [facility] [address] [id number] [place] [place] [address] Jul, [facility] [address] [facility] [id number] [facility] [place] [address] Jul, [facility] [address] [facility] [id number] [place] [address] Jul, [facility] [address] [id number] [place] [address] Jul, [facility] [address] [id number] [place] [address] Jul, [facility] [address] [facility] [id number] [facility] [place] [address] Jul, [facility] [address] [id number] [place] [address] Jun, [facility] [address] [id number] [place] [address] Jun, [facility] [address] [id number] [place] [address] Jun, [facility] [address] [id number] [place] [address] Jun, [facility] [address] [id number] [place] [address] Jun, [facility] [address] [id number] [place] [address] Jun, [facility] [address] [id number] [place] [address] Jun, [facility] [address] [id number] [place] [address] Jun, [facility] [address] [id number] [place] [address] May, [facility] [address] [id number] [place] [address] May, [facility] [address] [id number] [place] [address] May, [facility] [address] [id number] [place] [address] May, [facility] [address] [id number] [place] [address] May, [facility] [address] [id number] [place] [address] May, [facility] [address] [id number] [place] [address] May, [facility] [address] [id number] [place] [address] May, [facility] [address] [id number] [place] [address] Apr, [facility] [address] [id number] [place] [address] Apr, [facility] [id number] [place] [address] Apr, [facility] [address] [id number] [place] [address] Apr, [facility] [address] [id number] [place] [address] Mar, [facility] [address] [id number] [place] [address] Mar, [facility] [address] [id number] [place] [address] Mar, [facility] [address] [id number] [place] [address] Feb, [facility] [address] [id number] [place] [address] Feb, [facility] [address] [id number] [place] [address] Feb, [facility] [address] [id number] [place] [address] Feb, [facility] [address] [id number] [place] [address] Feb, [facility] [address] [facility] [id number] [place] [address] Feb, [facility] [address] [id number] [facility] [place] [address] Jan, [facility] [address] [id number] [place] [address] Jan, [facility] [address] [id number] [place] [address] Jan, [facility] [address] [facility] [id number] [place] [address] Jan, [facility] [address] [id number] [place] [address] Jan, [facility] [address] [id number] [place] [address] Jan, [facility] [address] [id number] [place] [address] Jan, [facility] [address] [id number] [place] [address] 25 Dec, 2012 [facility] [address] [id number] [place] [address] 16 Dec, 2012 [facility] [address] [id number] [place] [address] 10 Dec, 2012 [facility] [address] [id number] [place] [address] 05 Dec, 2012 [facility] [address] [id number] [place] [address] Nov, [facility] [address] [id number] [place] [address] Nov, [facility] [address] [id number] [place] [address] Nov, [facility] [address] [id number] [place] [address] Nov, [facility] [address] [id number] [place] [address] Nov, [facility] [address] [id number] [place] [address] Nov, [facility] [address] [id number] [place] [address] Nov, [facility] [address] [id number] [place] [address] Oct, [facility] [address] [id number] [place] [address] Oct, [facility] [address] [id number] [place] [address] Oct, [facility] [address] [id number] [place] [address] Oct, [facility] [address] [id number] [place] [address] Oct, [facility] [address] [id number] [place] [address] Oct, [facility] [address] [id number] [place] [address] Oct, [facility] [address] [id number] [place] [address] Oct, [facility] [address] [id number] [place] [address] Sep, [address]BERTHA [address] [id number] [place] [id number] August, [facility] [address] [id number] [place] [address] August, [facility] [address] [id number] [place] [address] Jul, [facility] [address] [id number] [place] [address] Jul, [facility] [address] [id number] [place] [address] 25 Jul, 2012 [facility] [address] [facility] [id number] [place] [address] Jul, [facility] [address] [facility] [id number] [facility] [place] [address] 18 Jul, 2012 [facility] [address] [id number] [place] [address] 17 Jul, 2012 [facility] [address] [id number] [place] [address] 16 Jul, 2012 [facility] [address] [facility] [id number] [place] [address] Jun, [facility] [address] [id number] [place] [address] Jun, [facility] [address] [id number] [place] [address] Jun, [facility] [address] [id number] [place] [address] Jun, [facility] [address] [id number] [place] [address] Jun, [facility] [address] [id number] [place] [address] May, [facility] [address] [id number] [place] [address] 18 May, 2012 [facility] [address] [id number] [place] [address] 04 May, 2012 [facility] [address] [id number] [place] [address] 15 Apr, 2012 [facility] [address] [id number] [place] [address] 14 Apr, 2012 [facility] [address] [id number] [place] [address] 07 Apr, 2012 [facility] [address] [id number] [place] [address] Mar, [facility] [address] [id number] [place] [address] 31 Mar, 2012 [facility] [address] [id number] [place] [address] Mar, [facility] [address] [id number] [place] [address] Mar, [facility] [address] [id number] [place] [address] Mar, [facility] [address] [id number] [place] [address] Mar, [facility] [address] [id number] [place] [address] Feb, [facility] [address] [id number] [place] [address] Feb, [facility] [id number] [place] [address] Jan, [facility] [address] [id number] [place] [address] Jan, [facility] [address] [id number] [place] [address] Dec, [facility] [address] [id number] [place] [address] Nov, [facility] [address] [id number] [place] [address] Nov, [facility] [address] [id number] [place] [address] Nov, [facility] [address] [id number] [place] [address] Nov, [facility] [id number] [place] [address] Oct, [facility] [address] [id number] [place] [address] Oct, [facility] [address] [id number] [place] [address] Oct, [facility] [address] [id number] [place] [address] Sep, [facility] [address] [id number] [place] [address] Sep, [facility] [address] [id number] [place] [address] Sep, [facility] [address] [id number] [place] [address] August, [facility] [address] [id number] [place] [address] August, [facility] [address] [id number] [place] [address] Jul, [facility] [address] [id number] [place] [address] Jul, [facility] [address] [id number] [place] [address] Jul, [facility] [address] [id number] [place] [address] Jul, [facility] [address] [id number] [place] [address] Jun, [facility] [address] [id number] [place] [address] May, [facility] [address] [id number] [place] [address] Apr, [facility] [address] [id number] [place] [address] Apr, [facility] [address] [id number] [place] [address] Apr, [facility] [address] [id number] [place] [address] Apr, [facility] [address] [id number] [place] [address] Apr, [facility] [address] [id number] [place] [address] Apr, [facility] [address] [id number] [place] [address] Mar, [facility] [address] [id number] [place] [address] Mar, [facility] [address] [id number] [place] [address] Feb, [facility] [address] [id number] [place] [address] Feb, [facility] [address] [id number] [place] [address] Feb, [facility] [address] [id number] [place] [address] Feb, [facility] [address] [id number] [place] [address] Jan, [facility] [address] [id number] [place] [address] Jan, [facility] [address] [id number] [place] [address] Jan, [facility] [address] [id number] [place] [address] Jan, [facility] [address] [id number] [place] [address] Nov, [facility] [address] [id number] [place] [address] Mar, [facility] [address] [id number] [place] [address] Mar, [facility] [address] [id number] [place] [address] 30 Feb, 2010 [facility] [address] [id number] [place] [address] 15 Feb, 2010 [facility] [address] [id number] [place] [address] Jan, [facility] [id number] [place] [address] 19 Jan, 2010 [facility] [id number] [place] [address] Sep, [facility] [id number] [place] [address] 16 May, 2009 [facility] [id number] [place] [address] Apr, [facility] [id number] [place] [address] Mar, [facility] [address] [address] Feb, [facility] [id number] [place] [address] Feb, [facility] [id number] [place] [address] Feb, [facility] [id number] [place] [address] Jan, [facility] [id number] [place] [address] Jan, [facility] [id number] [place] [address] Jan, [facility] [id number] [place] [address] Jan, [facility] [id number] [place] [address] August, IMMUNIZATIONS No Known Immunizations SOCIAL HISTORY [...] age 6 Hospitalization History surgery Hospitalization History [facility], indeann webber treatment few times for BH
--- OUTSIDE RECORDS SUMMARY | 2019-09-29 10:37 | XMS REPORT ---
Author Author Cameron Estrella Doctor Organization [facility] Address Unknown Phone Unavailable Care Team Providers Care Roustabout Hand Name Role Phone Migration, Doctor Unavailable Unavailable PROBLEMS Type Condition ICD9-CM Code [id number] Code Onset Dates Condition S tatus SNOMED Code Problem Adjustment disorder, unspecified type F43.20 Active 86536746 Problem Reactive airway disease, unspecified asthma justin rity, uncomplicated J45.909 Active 264038379626 Problem Hypertensive retinopathy of both eyes H35.033 Active 1235664 Problem Open-angle glaucoma of both eyes, unspecified glaucoma stage, unspecified open-angle glaucoma type H40.10X0 Acti ve 71706195 Problem Essential hypertension I10 Active 96664679 Problem Obstructive sleep apnea G47.33 Active 59643710 Problem Intermittent explosive disorder F63.81 Active 14425322 Problem Type 2 diabetes mellitus with complication E11.8 Active 31824213 Problem Bipolar disorder, in partial remission, most rec ent episode manic F31.73 Active 04606102 Problem Intermittent explosive disorder in adult F63.81 Active 33511656 Problem Bipolar disorder, unspecified F31.9 Active 46002589 Problem Neuropathy G62.9 Active 649873481 Problem Diabetes E11.9 Active 63941513 Problem Other specified urinary incontinence N39.498 Active 672914336 Problem Depression F32.9 Active 74329464 Problem 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 Active 63966821 Problem Mild intellectual disability F70 A ctive 34555312 Problem Reactive airway disease, mild intermittent, uncomplicated J45.20 Active 594106396 Problem Gastroesophageal reflux disease without esophagitis K21.9 Active 625723566 Problem Other diabetic neurological complication associated with type 2 diabetes mellitus E11.49 Active 762966675 ALLERGIES No Information ENCOUNTERS Encounter Location Date Diagnosis [facility] [address] [id number] [place] [address] August, [facility] [address] [id number] [place] [address] Jul, [facility] [address] [id number] [place] [address] Jul, [facility] [id number] [place] [address] 10 Jun, 2019 [facility] [address] [id number] [place] [address] 10 Jun, 2019 [facility] [address] [facility] [id number] [address] [place] [address] 04 Jun, 2019 Dysuria R30.0 [facility] [id number] [place] [address] 02 Jun, 2019 [place] [address] [address] 20 May, 2019 Influenza J11.1 [place] [address] [address] 13 May, 2019 Intermittent explosive disorder in adult F63.81 [facility] [id number] [place] [address] May, [facility] [address] [address] Apr, Intermittent explosive disorder in adult F63.81 ; Bipolar disorder, unspecified F31.9 and Mild intellectual disability F70 [facility] [address] [address] [id number] [address] Apr, Oral health maintenance stat us requiring routine preventive dental care K08.9 [facility] [address] [id number] [place] [address] Apr, Type 2 diabetes mellitus with complicati on E11.8 ; History of test for hearing Z92.89 ; Colon cancer screening Z12.11 ; Other specified urinary incontinence N39.498 and Impacted cerumen, right ear H61.21 [facility] [id number] [place] [address] 10 Apr, 2019 Onychomycosis B35.1 ; Other diabetic luc rological complication associated with type 2 diabetes mellitus E11.49 and Tinea pedis of both feet B35.3 [facility] [id number] [place] [address] Feb, [facility] [address] [address] Jan, [facility] [address] [address] Jan, [facility] [address] [address] Jan, [facility] [address] [address] Jan, [facility] [address] [address] Jan, [facility] [address] [address] Jan, [facility] [address] [address] Jan, [facility] [id number] [place] [address] Jan, Anemia D64.9 [facility] [address] [facility] [address] [id number] [place] [address] Jan, Dental examination Z01.20 an d Oral health maintenance status requiring routine preventive dental care K08.9 [facility] [address] [address] Jan, Onychomycosis B35.1 and Other diabetic n eurological complication associated with type 2 diabetes mellitus E11.49 [facility] [address] [address] Jan, Anemia D64.9 [facility] [address] [address] Jan, [facility] [address] [address] Dec, Urinary tract infection without hematuri a, site unspecified N39.0 [place] [address] [address] 30 Dec, 2018 Type 2 diabetes mellitus with complicati on E11.8 ; Urinary tract infection without hematuria, site unspecified N39.0 ; Impacted cerumen of both ears H61.23 ; Encounter for immunization Z23 and Hyponatremia E87.1 [place] [address] [address] Dec, Intermittent explosive disorder in adult F63.81 ; Dysuria R30.0 ; Type 2 diabetes mellitus with complication E11.8 ; Bipolar disorder, unspecified F31.9 and Mild intellectual disability F70 [place] [address] [address] Dec, Dysuria R30.0 [place] [address] [address] Dec, Intermittent explosive disorder in adult F63.81 ; Bipolar disorder, unspecified F31.9 and Mild intellectual disability F70 [place] [address] [address] Nov, [place] [address] [address] Oct, [facility] [address] [address] [id number] [place] [address] Oct, Oral health maintenance stat us requiring routine preventive dental care K08.9 [place] [address] [address] August, Intermittent explosive disorder in adult F63.81 ; Bipolar disorder, unspecified F31.9 and Mild intellectual disability F70 [facility] [address] [facility] [id number] [place] [id number] August, Dental caries K02.9 [facility] [address] [address] Jul, Onychomycosis B35.1 ; Other diabetic luc rological complication associated with type 2 diabetes mellitus E11.49 and Tinea pedis of both feet B35.3 [facility] [address] [id number] Jul, Caries K02.9 [facility] [address] [address] 15 Jul, 2018 Type 2 diabetes mellitus with complicati on E11.8 ; Tobacco abuse Z72.0 and Bipolar disorder, unspecified F31.9 [facility] [address] [address] Jun, [facility] [address] [id number] Jun, Dental examination Z01.20 and Oral healt h maintenance status requiring routine preventive dental care K08.9 [place] [address] [address] May, Bilateral impacted cerumen H61.23 [facility] [address] [address] Apr, Bipolar disorder, unspecified F31.9 ; In termittent explosive disorder in adult F63.81 ; Type 2 diabetes mellitus with complication E11.8 ; Tobacco abuse Z72.0 and Colon cancer screening Z12.11 [place] [address] [address] Apr, Onychomycosis B35.1 and Other diabetic n eurological complication associated with type 2 diabetes mellitus E11.49 [facility] [address] [address] Apr, Intermittent explosive disorder in adult F63.81 ; Bipolar disorder, unspecified F31.9 and Mild intellectual disability F70 [place] [address] [address] Mar, Diabetes E11.9 [facility] [address] [facility] [id number] [address] [place] [address] 20 Oct, 2018 Encounter for immunization Z 23 [place] [address] [address] Jan, Tinea pedis of both feet B35.3 ; Other d iabetic neurological complication associated with type 2 diabetes mellitus E11.49 and Onychomycosis B35.1 [place] [address] [address] Nov, Type 2 diabetes mellitus with complicati on E11.8 [place] [address] [address] Nov, [place] [address] [address] Oct, Intermittent explosive disorder in adult F63.81 ; Bipolar disorder, unspecified F31.9 and Mild intellectual disability F70 [place] [address] [address] Oct, [facility] [address] [id number] Oct, Dental examination Z01.20 [place] [address] [address] Oct, Onychomycosis B35.1 and Other diabetic n eurological complication associated with type 2 diabetes mellitus E11.49 [place] [address] [address] Sep, Type 2 diabetes mellitus with complicati on E11.8 and Colon cancer screening Z12.11 [place] [address] [address] Sep, Type 2 diabetes mellitus with complicati on E11.8 ; Colon cancer screening Z12.11 and Neuropathy G62.9 [place] [address] [address] August, Diabetes E11.9 [facility] [address] [id number] Jul, Dental examination Z01.20 [place] [address] [address] May, Mild intellectual disability F70 [place] [address] [address] May, Mild intellectual disability F70 ; High risk medication use Z79.899 ; Intermittent explosive disorder in adult F63.81 and Bipolar disorder, unspecified F31.9 [place] [address] [address] May, [place] [address] [address] May, [place] [address] [address] Apr, Type 2 diabetes mellitus with complicati on E11.8 ; Mild intellectual disability F70 ; Gastroesophageal reflux disease without esophagitis K21.9 ; Reactive airway disease, mild intermittent, uncomplicated J45.20 and Tobacco abuse Z72.[address] [address] Apr, High risk medication use Z79.899 ; Mild intellectual disability F70 ; Intermittent explosive disorder in adult F63.81 and Bipolar disorder, unspecified F31.9 [facility] [address] [id number] Mar, Encounter for dental exam and cleaning w /o abnormal findings Z01.20 [facility] [address] [id number] Mar, Dental examination Z01.20 [place] [address] [address] Jan, [place] [address] [address] Jan, [place] [address] [address] Jan, Mild intellectual disability F70 ; Bipol ar disorder, unspecified F31.9 and Intermittent explosive disorder in adult F63.81 [place] [address] [address] 02 Jan, 2017 Diabetes E11.9 [facility] [address] [id number] Dec, Encounter for dental examination and osei aning without abnormal findings Z01.20 [facility] [address] [address] 12 Dec, 2016 Bipolar disorder, unspecified F31.9 ; In termittent explosive disorder in adult F63.81 and Mild intellectual disability F70 [facility] [address] [address] Nov, Diabetes E11.9 [facility] [address] [address] Nov, [facility] [address] [address] Nov, Diabetes E11.9 and Colon cancer screenin g Z12.[address] [id number] Sep, Dental examination Z01.20 [facility] [address] [id number] 21 Sep, 2016 Encounter for dental examination and osei aning without abnormal findings Z01.20 [facility] [address] [address] Sep, Bipolar disorder, unspecified F31.9 [facility] [address] [address] Sep, Bipolar disorder, unspecified F31.9 [facility] [address] [address] Jul, [facility] [address] [address] Jul, Type 2 diabetes mellitus with complicati on E11.8 [facility] [address] [id number] Jun, Encounter for dental examination and osei aning without abnormal findings Z01.20 [facility] [id number] [facility] [id number] 15 Jun, 2016 Dental examination Z01.20 [facility] [address] [address] 18 Apr, 2016 Sports physical Z02.5 [place] [address] [address] 14 Mar, 2016 Bipolar disorder, in partial remission, most recent episode manic F31.73 and Intermittent explosive disorder in adult F63.81 [facility] [address] [address] 08 Mar, 2016 [place] [address] [address] Mar, Diabetes E11.9 [facility] [address] [id number] Feb, Encounter for dental examination and osei aning without abnormal findings Z01.20 [facility] [address] [address] 22 Dec, 2015 Nocturnal hypoxemia G47.34 and Encounter for immunization Z23 [place] [address] [address] 15 Dec, 2015 [facility] [address] [address] Dec, [facility] [address] [address] Dec, Bipolar disorder, unspecified F31.9 [facility] [address] [id number] Oct, Encounter for dental examination and osei aning without abnormal findings Z01.20 [facility] [address] [id number] [facility] [id number] Oct, Dental examination Z01.20 [facility] [address] [address] 07 Oct, 2015 Diabetes E11.9 [place] [address] [address] Oct, Diabetes E11.9 ; Reactive airway disease , mild intermittent, uncomplicated J45.20 and Tobacco abuse Z72.0 [place] [address] [address] Sep, Bipolar disorder, unspecified F31.9 and Depression F32.9 [place] [address] [address] Sep, [place] [address] [address] August, Tinea pedis of both feet B35.3 and DM w/ o complication type II, uncontrolled E11.65 [place] [address] [address] Jul, [place] [address] [address] Jul, [place] [address] [address] Jul, Obstructive sleep apnea G47.[address] [address] Jun, Diabetes E11.9 [place] [address] [address] Jun, [place] [address] [address] Jun, [address] [address] Jun, Bipolar disorder, unspecified F31.9 and Mental retardation F79 [place] [address] [address] Apr, [address] [address] Feb, Diabetes E11.9 ; Encounter for immunizat ion Z23 ; Cough R05 and Nicotine abuse Z72.0 [facility] [address] [address] Jan, Bipolar disorder, unspecified F31.9 and Diabetes mellitus without mention of complication, type II or unspecified type, uncontrolled 250.02 [facility] [address] [address] Jan, [facility] [address] [address] Dec, Reactive airway disease 493.90 and Enure sis 788.30 [facility] [address] [address] Dec, [place] [address] [address] Nov, [place] [address] [address] Nov, [place] [address] [address] Nov, Annual physical exam V70.0 ; Urinary inc ontinence 788.30 ; Diabetes 250.00 and Hypertension 401.9 [place] [address] [address] Oct, Diabetes mellitus without mention of com plication, type II or unspecified type, uncontrolled 250.02 [place] [address] [address] Oct, Diabetes mellitus without mention of com plication, type II or unspecified type, uncontrolled 250.02 [facility] [address] [address] Oct, Diabetes mellitus without mention of com plication, type II or unspecified type, uncontrolled 250.02 [facility] [address] [address] Oct, [facility] [address] [address] Oct, [facility] [id number] [place] [address] Oct, Bipolar disorder, unspecified 296.80 [facility] [address] [id number] Sep, Dental examination V72.2 [facility] [id number] [place] [address] August, [facility] [address] [id number] August, Dental examination V72.2 [facility] [id number] [place] [address] August, [facility] [address] [address] Jul, [facility] [id number] [place] [address] Jul, [facility] [id number] [place] [address] Jun, [facility] [id number] [place] [address] Jun, [facility] [address] [address] Jun, [facility] [id number] [place] [address] Jun, [facility] [address] [address] May, [facility] [id number] [place] [address] May, [facility] [address] [address] May, [facility] [id number] [place] [address] May, [facility] [id number] [place] [address] May, [facility] [place] [facility] [address] [id number] [place] [address] 16 May, 2014 [facility] [place] [facility] [address] [id number] [place] [address] May, 2014 [facility] [place] [facility] [address] [id number] [place] [address] May, 2014 [facility] [place] [facility] [address] [id number] [place] [address] May, 2014 [facility] [place] [facility] [address] [id number] [place] [address] May, 2014 [facility] [place] [facility] [address] [id number] [place] [address] May, 2014 [facility] [place] [facility] [address] [id number] [place] [address] May, 2014 [facility] [place] [facility] [address] [id number] [place] [address] May, 2014 [facility] [place] [facility] [address] [id number] [place] [address] May, 2014 [facility] [place] [facility] [address] [id number] [place] [address] May, 2014 [facility] [place] [facility] [address] [id number] [place] [address] Apr, [facility] [place] [facility] [address] [id number] [place] [address] Apr, [facility] [place] [facility] [address] [id number] [place] [address] Apr, [facility] [place] [facility] [address] [id number] [place] [address] Apr, [facility] [place] [facility] [address] [id number] [place] [address] Apr, [facility] [place] [facility] [address] [id number] [place] [address] Apr, [facility] [place] [facility] [address] [id number] [place] [address] Apr, [facility] [place] [facility] [address] [facility] [id number] [place] [address] Apr, [facility] [place] [facility] [address] [id number] [place] [address] Apr, [facility] [place] [facility] [address] [id number] [place] [address] Apr, [facility] [place] [facility] [address] [id number] [place] [address] Apr, [facility] [place] [facility] [address] [id number] [place] [address] Apr, [facility] [place] [facility] [address] [id number] [place] [address] Mar, [facility] [place] [address] [id number] [place] [address] Mar, [facility] [place] [facility] [address] [id number] [place] [address] Mar, [facility] [place] [facility] [address] [id number] [place] [address] Mar, [facility] [place] [facility] [address] [id number] [place] [address] Mar, [facility] [place] [facility] [address] [id number] [place] [address] Mar, [facility] [place] [facility] [address] [id number] [place] [address] Feb, [facility] [place] [facility] [address] [id number] [place] [address] Feb, [facility] [place] [facility] [address] [id number] [place] [address] Feb, [facility] [place] [facility] [address] [id number] [place] [address] 13 Feb, 2014 [facility] [address] [id number] [place] [address] 14 Jan, 2014 [facility] [address] [facility] [id number] [place] [address] 14 Jan, 2014 [facility] [address] [facility] [id number] [place] [address] 14 Jan, 2014 [facility] [address] [facility] [id number] [place] [address] 14 Jan, 2014 [facility] [address] [facility] [id number] [place] [address] Dec, [facility] [address] [facility] [id number] [place] [address] 22 Dec, 2013 [facility] [address] [facility] [id number] [place] [address] 15 Dec, 2013 [facility] [address] [id number] [place] [address] 15 Dec, 2013 [facility] [address] [id number] [place] [address] Nov, [facility] [address] [id number] [place] [address] Nov, [facility] [place] [facility] [address] [facility] [id number] [place] [address] Nov, [facility] [address] [id number] [place] [address] Nov, [facility] [place] [address] [id number] [place] [address] Nov, [facility] [place] [address] [id number] [place] [address] Nov, [facility] [address] [facility] [id number] [place] [address] Nov, [facility] [address] [id number] [place] [address] Oct, [facility] [place] [address] [facility] [id number] [place] [address] Oct, [facility] [address] [id number] [place] [address] Oct, [facility] [address] [id number] [place] [address] Oct, [facility] [address] [facility] [id number] [place] [id number] Oct, [facility] [address] [facility] [id number] [place] [id number] Oct, [facility] [address] [id number] [place] [id number] Oct, [facility] [address] [facility] [id number] [place] [address] Sep, [facility] [address] [id number] [place] [id number] Sep, [facility] [address] [id number] [place] [id number] Sep, [facility] [address] [id number] [place] [id number] Sep, [facility] [address] [id number] [place] [id number] Sep, [facility] [address] [id number] [place] [id number] Jul, [facility] [address] [id number] [place] [id number] Jul, [facility] [address] [id number] [place] [id number] Jul, [facility] [address] [facility] [id number] [place] [id number] Jul, [facility] [address] [id number] [place] [id number] 15 Jul, 2013 [facility] [address] [id number] [place] [address] Jul, [facility] [address] [id number] [place] [address] Jul, [facility] [address] [id number] [place] [address] Jul, [facility] [address] [facility] [id number] [facility] [place] [address] Jul, [facility] [address] [facility] [id number] [place] [address] Jul, [facility] [address] [id number] [place] [address] Jul, [facility] [address] [id number] [place] [address] Jul, [facility] [address] [id number] [place] [address] Jun, [facility] [address] [id number] [place] [address] Jun, [facility] [address] [id number] [place] [address] Jun, [facility] [address] [id number] [place] [address] Jun, [facility] [address] [id number] [place] [address] Jun, [facility] [address] [id number] [place] [address] Jun, [facility] [address] [id number] [place] [address] Jun, [facility] [address] [id number] [place] [address] Jun, [facility] [address] [facility] [id number] [place] [address] May, [facility] [address] [id number] [place] [address] May, [facility] [address] [id number] [place] [address] May, [facility] [address] [id number] [place] [address] May, [facility] [address] [id number] [place] [address] May, [facility] [address] [id number] [place] [address] May, [facility] [address] [id number] [place] [address] May, [facility] [address] [id number] [place] [address] May, [facility] [address] [id number] [place] [address] Apr, [facility] [address] [id number] [place] [address] Apr, [facility] [address] [id number] [place] [address] Apr, [facility] [address] [id number] [place] [address] Apr, [facility] [address] [id number] [place] [address] Mar, [facility] [address] [id number] [place] [address] Mar, [facility] [address] [id number] [place] [address] Mar, [facility] [address] [id number] [place] [address] Feb, [facility] [address] [id number] [place] [address] Feb, [facility] [address] [id number] [place] [address] Feb, [facility] [address] [id number] [place] [address] Feb, [facility] [address] [id number] [place] [address] Feb, [facility] [address] [id number] [place] [address] Feb, [facility] [address] [facility] [id number] [place] [address] Jan, [facility] [address] [facility] [id number] [place] [address] Jan, [facility] [address] [id number] [place] [address] Jan, [facility] [address] [id number] [place] [address] Jan, [facility] [address] [facility] [id number] [place] [address] Jan, [facility] [address] [id number] [place] [address] Jan, [facility] [address] [id number] [place] [address] Jan, [facility] [address] [id number] [place] [address] 25 Dec, 2012 [facility] [address] [id number] [place] [address] 16 Dec, 2012 [facility] [address] [id number] [place] [address] 10 Dec, 2012 [facility] [address] [id number] [place] [address] 05 Dec, 2012 [facility] [address] [id number] [place] [address] Nov, [facility] [address] [id number] [place] [address] Nov, [facility] [address] [id number] [place] [address] Nov, [facility] [address] [id number] [place] [address] Nov, [facility] [address] [id number] [place] [address] Nov, [facility] [address] [id number] [place] [address] Nov, [facility] [address] [id number] [place] [address] Nov, [facility] [address] [id number] [place] [address] Oct, [facility] [address] [id number] [place] [address] Oct, [facility] [address] [id number] [place] [address] Oct, [facility] [address] [id number] [place] [address] Oct, [facility] [address] [id number] [place] [address] Oct, [facility] [address] [id number] [place] [address] Oct, [facility] [address] [id number] [place] [address] Oct, [facility] [address] [id number] [place] [address] Oct, [facility] [address] [id number] [place] [address] Sep, mananzCHBERTHA PEREZ [address] [facility] [id number] [place] [id number] August, [facility] [address] [id number] [place] [address] August, [facility] [address] [id number] [place] [address] Jul, [facility] [address] [id number] [place] [address] Jul, [facility] [address] [id number] [place] [address] Jul, [facility] [address] [id number] [place] [id number] 22 Jul, 2012 [facility] [address] [facility] [id number] [place] [address] 18 Jul, 2012 [facility] [address] [facility] [id number] [place] [address] 17 Jul, 2012 [facility] [address] [id number] [place] [address] 16 Jul, 2012 [facility] [address] [id number] [place] [address] 21 Jun, 2012 [facility] [address] [facility] [id number] [place] [address] 18 Jun, 2012 [facility] [address] [id number] [place] [address] 11 Jun, 2012 [facility] [address] [id number] [place] [address] 04 Jun, 2012 [facility] [address] [id number] [place] [address] 04 Jun, 2012 [facility] [address] [id number] [place] [address] May, [facility] [address] [id number] [place] [address] 18 May, 2012 [facility] [address] [id number] [place] [address] 04 May, 2012 [facility] [address] [id number] [place] [address] 15 Apr, 2012 [facility] [address] [id number] [place] [address] 14 Apr, 2012 [facility] [address] [id number] [place] [address] 07 Apr, 2012 [facility] [address] [id number] [place] [address] Mar, [facility] [address] [id number] [place] [address] Mar, [facility] [address] [id number] [place] [address] Mar, [facility] [address] [id number] [place] [address] Mar, [facility] [address] [id number] [place] [address] Mar, [facility] [address] [id number] [place] [address] Mar, [facility] [address] [id number] [place] [address] Feb, [facility] [address] [id number] [place] [address] Feb, [facility] [address] [id number] [place] [address] Jan, [facility] [address] [id number] [place] [address] Jan, [facility] [address] [id number] [place] [address] Dec, [facility] [address] [id number] [place] [address] Nov, [facility] [address] [id number] [place] [address] Nov, [facility] [address] [id number] [place] [address] Nov, [facility] [address] [id number] [place] [address] Nov, [facility] [address] [id number] [place] [address] Oct, [facility] [id number] [place] [address] Oct, [facility] [address] [id number] [place] [address] Oct, [facility] [address] [id number] [place] [address] Sep, [facility] [address] [id number] [place] [address] Sep, [facility] [address] [id number] [place] [address] Sep, [facility] [address] [id number] [place] [address] August, [facility] [address] [id number] [place] [address] August, [facility] [address] [id number] [place] [address] Jul, [facility] [address] [id number] [place] [address] Jul, [facility] [address] [id number] [place] [address] Jul, [facility] [address] [id number] [place] [address] Jul, [facility] [address] [id number] [place] [address] Jun, [facility] [address] [id number] [place] [address] May, [facility] [address] [id number] [place] [address] Apr, [facility] [address] [id number] [place] [address] Apr, [facility] [address] [id number] [place] [address] Apr, [facility] [address] [id number] [place] [address] Apr, [facility] [address] [id number] [place] [address] Apr, [facility] [address] [id number] [place] [address] Apr, [facility] [address] [id number] [place] [address] Mar, [facility] [address] [id number] [place] [address] Mar, [facility] [address] [id number] [place] [address] Feb, [facility] [address] [id number] [place] [address] Feb, [facility] [address] [id number] [place] [address] Feb, [facility] [address] [id number] [place] [address] Feb, [facility] [address] [id number] [place] [address] Jan, [facility] [address] [id number] [place] [address] Jan, [facility] [address] [id number] [place] [address] Jan, [facility] [address] [id number] [place] [address] Jan, [facility] [address] [id number] [place] [address] Nov, [facility] [address] [id number] [place] [address] Mar, [facility] [address] [id number] [place] [address] Mar, [facility] [address] [id number] [place] [address] 30 Feb, 2010 [facility] [address] [id number] [place] [address] 15 Feb, 2010 [facility] [address] [id number] [place] [address] Jan, [facility] [address] [id number] [place] [address] Jan, [facility] [address] [id number] [place] [address] 15 Sep, 2009 [facility] [address] [id number] [place] [address] 16 May, 2009 [facility] [address] [id number] [place] [address] Apr, [facility] [id number] [place] [address] Mar, [facility] [id number] [place] [address] Feb, [facility] [id number] [place] [address] Feb, [facility] [id number] [place] [address] Feb, [facility] [id number] [place] [address] Jan, [facility] [id number] [place] [address] Jan, [facility] [id number] [place] [address] Jan, [facility] [id number] [place] [address] Jan, [facility] [address] [id number] [place] [address] August, IMMUNIZATIONS No Known Immunizations SOCIAL HISTORY [...] age 6 Hospitalization History surgery [facility]
--- OUTSIDE RECORDS SUMMARY | 2019-09-29 10:37 | XMS REPORT ---
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 Role Phone JEET ALANIZ Unavailable PROBLEMS Type Condition ICD9-CM Code GKH34-OF Code Onset Dates Condition S tatus SNOMED Code Problem Adjustment disorder, unspecified type F43.20 Active 43636311 Problem Reactive airway disease, unspecified asthma justin rity, uncomplicated J45.909 Active 460129597089 Problem Hypertensive retinopathy of both eyes H35.033 Active 2165795 Problem Open-angle glaucoma of both eyes, unspecified glaucoma stage, unspecified open-angle glaucoma type H40.10X0 Acti ve 22728633 Problem Essential hypertension I10 Active 30740757 Problem Obstructive sleep apnea G47.33 Active 68057525 Problem Intermittent explosive disorder F63.81 Active 19779105 Problem Type 2 diabetes mellitus with complication E11.8 Active 74578100 Problem Bipolar disorder, in partial remission, most rec ent episode manic F31.73 Active 03536285 Problem Intermittent explosive disorder in adult F63.81 Active 45154812 Problem Bipolar disorder, unspecified F31.9 Active 72615227 Problem Neuropathy G62.9 Active 975794170 Problem Diabetes E11.9 Active 21723125 Problem Other specified urinary incontinence N39.498 Active 132263212 Problem Depression F32.9 Active 87686253 Problem 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 Active 20192971 Problem Mild intellectual disability F70 A ctive 73568989 Problem Reactive airway disease, mild intermittent, uncomplicated J45.20 Active 792923199 Problem Gastroesophageal reflux disease without esophagitis K21.9 Active 607490816 Problem Other diabetic neurological complication associated with type 2 diabetes mellitus E11.49 Active 482285522 ALLERGIES No Information ENCOUNTERS Encounter Location Date Diagnosis [facility] [address] [id number] [place] [address] August, [facility] [id number] [place] [address] Jul, [facility] [address] [address] Jul, [facility] [address] [address] 10 Jun, 2019 [facility] [address] [address] Jun, [facility] [address] [facility] [id number] [address] [address] 04 Jun, 2019 Dysuria R30.0 [facility] [address] [address] 02 Jun, 2019 [facility] [address] [address] 20 May, 2019 Influenza J11.1 [facility] [address] [address] 13 May, 2019 Intermittent explosive disorder in adult F63.81 [facility] [address] [address] 12 May, 2019 [facility] [address] [address] Apr, Intermittent explosive disorder in adult F63.81 ; Bipolar disorder, unspecified F31.9 and Mild intellectual disability F70 [facility] [address] [address] [id number] [address] Apr, Oral health maintenance stat us requiring routine preventive dental care K08.9 [facility] [address] [address] Apr, Type 2 diabetes mellitus with complicati on E11.8 ; History of test for hearing Z92.89 ; Colon cancer screening Z12.11 ; Other specified urinary incontinence N39.498 and Impacted cerumen, right ear H61.21 [facility] [address] [place] [address] Apr, Onychomycosis B35.1 ; Other diabetic luc rological complication associated with type 2 diabetes mellitus E11.49 and Tinea pedis of both feet B35.3 [facility] [address] [address] Feb, [facility] [address] [address] Jan, [facility] [address] [address] Jan, [facility] [address] [address] Jan, [facility] [address] [address] Jan, [facility] [address] [address] Jan, [facility] [address] [address] Jan, [facility] [address] [address] Jan, [facility] [address] [address] Jan, Anemia D64.9 [facility] [address] [facility] [address] [id number] [address] Jan, Dental examination Z01.20 an d Oral health maintenance status requiring routine preventive dental care K08.9 [facility] [address] [address] Jan, Onychomycosis B35.1 and Other diabetic n eurological complication associated with type 2 diabetes mellitus E11.49 [facility] [address] [address] Jan, Anemia D64.9 [facility] [address] [address] Jan, [facility] [address] [address] Dec, Urinary tract infection without hematuri a, site unspecified N39.0 [facility] [address] [address] Dec, Type 2 diabetes mellitus with complicati on E11.8 ; Urinary tract infection without hematuria, site unspecified N39.0 ; Impacted cerumen of both ears H61.23 ; Encounter for immunization Z23 and Hyponatremia E87.1 [facility] [address] [address] Dec, Intermittent explosive disorder in adult F63.81 ; Dysuria R30.0 ; Type 2 diabetes mellitus with complication E11.8 ; Bipolar disorder, unspecified F31.9 and Mild intellectual disability F70 [place] [address] [address] Dec, Dysuria R30.0 [facility] [address] [address] Dec, Intermittent explosive disorder in adult F63.81 ; Bipolar disorder, unspecified F31.9 and Mild intellectual disability F70 [facility] [id number] [place] [address] Nov, [place] [address] [address] Oct, [facility] [address] [address] [id number] [place] [address] Oct, Oral health maintenance stat us requiring routine preventive dental care K08.9 [facility] [address] [address] August, Intermittent explosive disorder in adult F63.81 ; Bipolar disorder, unspecified F31.9 and Mild intellectual disability F70 [facility] [address] [facility] [id number] [place] [id number] August, Dental caries K02.9 [facility] [address] [address] Jul, Onychomycosis B35.1 ; Other diabetic luc rological complication associated with type 2 diabetes mellitus E11.49 and Tinea pedis of both feet B35.3 [facility] [address] [id number] Jul, Caries K02.9 [place] [address] [address] Jul, Type 2 diabetes mellitus with complicati on E11.8 ; Tobacco abuse Z72.0 and Bipolar disorder, unspecified F31.9 [place] [address] [address] Jun, [facility] [address] [id number] Jun, Dental examination Z01.20 and Oral healt h maintenance status requiring routine preventive dental care K08.9 [place] [address] [address] May, Bilateral impacted cerumen H61.[address] [address] Apr, Bipolar disorder, unspecified F31.9 ; In termittent explosive disorder in adult F63.81 ; Type 2 diabetes mellitus with complication E11.8 ; Tobacco abuse Z72.0 and Colon cancer screening Z12.11 [place] [address] [address] Apr, Onychomycosis B35.1 and Other diabetic n eurological complication associated with type 2 diabetes mellitus E11.[address] [address] Apr, Intermittent explosive disorder in adult F63.81 ; Bipolar disorder, unspecified F31.9 and Mild intellectual disability F70 [place] [address] [address] Mar, Diabetes E11.9 [facility] [address] [facility] [id number] [address] [place] [address] Jan, Encounter for immunization Z 23 [place] [address] [address] 12 Jan, 2018 Tinea pedis of both feet B35.3 ; Other d iabetic neurological complication associated with type 2 diabetes mellitus E11.49 and Onychomycosis B35.1 [place] [address] [address] Nov, Type 2 diabetes mellitus with complicati on E11.8 [place] [address] [address] Nov, [place] [address] [address] Oct, Intermittent explosive disorder in adult F63.81 ; Bipolar disorder, unspecified F31.9 and Mild intellectual disability F70 [place] [address] [address] Oct, [facility] [address] [id number] Oct, Dental examination Z01.20 [place] [address] [address] Oct, Onychomycosis B35.1 and Other diabetic n eurological complication associated with type 2 diabetes mellitus E11.49 [place] [address] [address] Sep, Type 2 diabetes mellitus with complicati on E11.8 and Colon cancer screening Z12.11 [place] [address] [address] Sep, Type 2 diabetes mellitus with complicati on E11.8 ; Colon cancer screening Z12.11 and Neuropathy G62.9 [place] [address] [address] August, Diabetes E11.9 [facility] [address] [id number] Jul, Dental examination Z01.20 [facility] [address] [address] May, Mild intellectual disability F70 [facility] [address] [address] May, Mild intellectual disability F70 ; High risk medication use Z79.899 ; Intermittent explosive disorder in adult F63.81 and Bipolar disorder, unspecified F31.9 [facility] [address] [address] May, [facility] [address] [address] May, [facility] [address] [address] Apr, Type 2 diabetes mellitus with complicati on E11.8 ; Mild intellectual disability F70 ; Gastroesophageal reflux disease without esophagitis K21.9 ; Reactive airway disease, mild intermittent, uncomplicated J45.20 and Tobacco abuse Z72.0 [facility] [address] [address] Apr, High risk medication use Z79.899 ; Mild intellectual disability F70 ; Intermittent explosive disorder in adult F63.81 and Bipolar disorder, unspecified F31.9 [facility] [address] [id number] Mar, Encounter for dental exam and cleaning w /o abnormal findings Z01.20 [facility] [address] [id number] Mar, Dental examination Z01.20 [facility] [address] [address] Jan, [facility] [address] [address] Jan, [facility] [address] [address] Jan, Mild intellectual disability F70 ; Bipol ar disorder, unspecified F31.9 and Intermittent explosive disorder in adult F63.81 [facility] [address] [address] 02 Jan, 2017 Diabetes E11.9 [facility] [address] [id number] [place] [id number] 13 Dec, 2016 Encounter for dental examination and osei aning without abnormal findings Z01.20 [facility] [address] [address] 12 Dec, 2016 Bipolar disorder, unspecified F31.9 ; In termittent explosive disorder in adult F63.81 and Mild intellectual disability F70 [facility] [address] [address] 25 Nov, 2016 Diabetes E11.9 [facility] [address] [address] Nov, [facility] [address] [address] Nov, Diabetes E11.9 and Colon cancer screenin g Z12.11 [address] [place] [id number] Sep, Dental examination Z01.20 [facility] [id number] [place] [id number] 21 Sep, 2016 Encounter for dental examination and osei aning without abnormal findings Z01.20 [facility] [address] [address] 13 Sep, 2016 Bipolar disorder, unspecified F31.9 [facility] [address] [address] Sep, Bipolar disorder, unspecified F31.9 [facility] [address] [address] Jul, [facility] [address] [address] Jul, Type 2 diabetes mellitus with complicati on E11.8 [facility] [address] [id number] 15 Jun, 2016 Encounter for dental examination and osei aning without abnormal findings Z01.20 [facility] [id number] [place] [id number] 15 Jun, 2016 Dental examination Z01.20 [facility] [address] [id number] 18 Apr, 2016 Sports physical Z02.5 [facility] [address] [address] 14 Mar, 2016 Bipolar disorder, in partial remission, most recent episode manic F31.73 and Intermittent explosive disorder in adult F63.81 [facility] [address] [id number] 08 Mar, 2016 [facility] [address] [address] 06 Mar, 2016 Diabetes E11.9 [facility] [address] [id number] Feb, Encounter for dental examination and osei aning without abnormal findings Z01.20 [facility] [address] [address] 22 Dec, 2015 Nocturnal hypoxemia G47.34 and Encounter for immunization Z23 [facility] [address] [address] 15 Dec, 2015 [facility] [address] [address] Dec, [facility] [address] [address] Dec, Bipolar disorder, unspecified F31.9 [facility] [address] [id number] Oct, Encounter for dental examination and osei aning without abnormal findings Z01.20 [facility] [address] [id number] [place] [id number] Oct, Dental examination Z01.20 [place] [address] [address] Oct, Diabetes E11.9 [place] [address] [address] Oct, Diabetes E11.9 ; Reactive airway disease , mild intermittent, uncomplicated J45.20 and Tobacco abuse Z72.0 [place] [address] [address] Sep, Bipolar disorder, unspecified F31.9 and Depression F32.9 [place] [address] [address] Sep, [place] [address] [address] August, Tinea pedis of both feet B35.3 and DM w/ o complication type II, uncontrolled E11.65 [place] [address] [address] Jul, [place] [address] [address] Jul, [place] [address] [address] Jul, Obstructive sleep apnea G47.33 [place] [address] [address] Jun, Diabetes E11.9 [place] [address] [address] Jun, [place] [address] [address] Jun, [place] [address] [address] Jun, Bipolar disorder, unspecified F31.9 and Mental retardation F79 [place] [address] [address] Apr, [place] [address] [address] Feb, Diabetes E11.9 ; Encounter for immunizat ion Z23 ; Cough R05 and Nicotine abuse Z72.[address] [address] Jan, Bipolar disorder, unspecified F31.9 and Diabetes mellitus without mention of complication, type II or unspecified type, uncontrolled 250.[address] [address] Jan, [address] [address] Dec, Reactive airway disease 493.90 and Enure sis 788.[address] [address] Dec, [address] [address] Nov, [address] [address] Nov, [address] [address] Nov, Annual physical exam V70.0 ; Urinary inc ontinence 788.30 ; Diabetes 250.00 and Hypertension 401.[address] [address] Oct, Diabetes mellitus without mention of com plication, type II or unspecified type, uncontrolled 250.[address] [address] Oct, Diabetes mellitus without mention of com plication, type II or unspecified type, uncontrolled 250.[address] [address] Oct, Diabetes mellitus without mention of com plication, type II or unspecified type, uncontrolled 250.[address] [address] Oct, [address] [id number] [place] [address] Oct, [facility] [id number] [place] [address] Oct, Bipolar disorder, unspecified 296.80 [facility] [address] [id number] [place] [id number] Sep, Dental examination V72.2 [facility] [id number] [place] [address] August, [facility] [address] [id number] [place] [id number] August, Dental examination V72.2 [facility] [id number] [place] [address] August, [facility] [address] [id number] [place] [address] Jul, [facility] [address] [id number] [place] [address] Jul, [facility] [id number] [place] [address] Jun, [facility] [id number] [place] [address] Jun, [facility] [id number] [place] [address] Jun, [facility] [id number] [place] [address] Jun, [facility] [address] [id number] [place] [address] May, [facility] [id number] [place] [address] May, [facility] [id number] [place] [address] May, [facility] [id number] [place] [address] May, [facility] [address] [id number] [place] [address] 16 May, 2014 [facility] [address] [id number] [place] [address] May, 2014 [facility] [address] [id number] [place] [address] 16 May, 2014 [facility] [address] [id number] [place] [address] May, 2014 [facility] [address] [id number] [place] [address] May, 2014 [facility] [address] [id number] [place] [address] May, 2014 [facility] [address] [id number] [place] [address] May, 2014 [facility] [address] [id number] [place] [address] May, 2014 [facility] [address] [id number] [place] [address] May, 2014 [facility] [address] [id number] [place] [address] May, 2014 [facility] [address] [id number] [place] [address] May, 2014 [facility] [address] [id number] [place] [address] Apr, [facility] [address] [id number] [place] [address] Apr, [facility] [address] [id number] [place] [address] Apr, [facility] [address] [id number] [place] [address] Apr, [facility] [address] [id number] [place] [address] Apr, [facility] [address] [id number] [place] [address] Apr, [facility] [address] [facility] [id number] [place] [address] Apr, [facility] [address] [facility] [id number] [place] [address] Apr, [facility] [address] [id number] [place] [address] Apr, [facility] [address] [id number] [place] [address] Apr, [facility] [address] [id number] [place] [address] Apr, [facility] [address] [id number] [place] [address] Apr, [facility] [address] [id number] [place] [address] Mar, [facility] [address] [id number] [place] [address] Mar, [facility] [address] [id number] [place] [address] Mar, [facility] [address] [id number] [place] [address] Mar, [facility] [address] [id number] [place] [address] Mar, [facility] [address] [id number] [place] [address] Mar, [facility] [address] [id number] [place] [address] Feb, [facility] [address] [id number] [place] [address] Feb, [facility] [address] [id number] [place] [address] Feb, [facility] [address] [id number] [place] [address] Feb, [facility] [address] [facility] [id number] [place] [address] 14 Jan, 2014 [facility] [address] [facility] [id number] [place] [address] 14 Jan, 2014 [facility] [address] [facility] [id number] [place] [address] 14 Jan, 2014 [facility] [address] [facility] [id number] [place] [address] 14 Jan, 2014 [facility] [address] [facility] [id number] [place] [address] 22 Dec, 2013 [facility] [address] [facility] [id number] [place] [address] 22 Dec, 2013 [facility] [address] [id number] [place] [address] 15 Dec, 2013 [facility] [address] [id number] [place] [address] 15 Dec, 2013 [facility] [address] [id number] [place] [address] Nov, [facility] [address] [facility] [id number] [place] [address] Nov, [facility] [address] [id number] [place] [address] Nov, [facility] [address] [id number] [place] [address] Nov, [facility] [address] [id number] [place] [address] Nov, [facility] [address] [facility] [id number] [place] [address] Nov, [facility] [address] [id number] [place] [address] Nov, [facility] [address] [facility] [id number] [place] [address] Oct, [facility] [address] [id number] [place] [address] Oct, [facility] [address] [id number] [place] [address] Oct, [facility] [address] [id number] [place] [address] Oct, [facility] [address] [facility] [id number] [place] [address] Oct, [facility] [address] [id number] [place] [address] Oct, [facility] [address] [facility] [id number] [place] [address] Oct, [facility] [address] [id number] [place] [address] Sep, [facility] [address] [id number] [place] [address] Sep, [facility] [address] [id number] [place] [address] Sep, [facility] [address] [id number] [place] [address] Sep, [facility] [address] [id number] [place] [address] Sep, [facility] [address] [id number] [place] [address] Jul, [facility] [address] [id number] [place] [address] Jul, [facility] [address] [facility] [id number] [place] [address] Jul, [facility] [address] [id number] [place] [address] Jul, [facility] [address] [id number] [place] [address] 15 Jul, 2013 [facility] [address] [id number] [place] [address] Jul, [facility] [address] [id number] [facility] [place] [address] Jul, [facility] [address] [facility] [id number] [facility] [place] [address] Jul, [facility] [address] [facility] [id number] [place] [address] Jul, [facility] [address] [id number] [place] [address] Jul, [facility] [address] [id number] [place] [address] Jul, [facility] [address] [facility] [id number] [facility] [place] [address] Jul, [facility] [address] [id number] [place] [address] Jun, [facility] [address] [id number] [place] [address] Jun, [facility] [address] [id number] [place] [address] Jun, [facility] [address] [id number] [place] [address] Jun, [facility] [address] [id number] [place] [address] Jun, [facility] [address] [id number] [place] [address] Jun, [facility] [address] [id number] [place] [address] Jun, [facility] [address] [id number] [place] [address] Jun, [facility] [address] [id number] [place] [address] May, [facility] [address] [id number] [place] [address] May, [facility] [address] [id number] [place] [address] May, [facility] [address] [id number] [place] [address] May, [facility] [address] [id number] [place] [address] May, [facility] [address] [id number] [place] [address] May, [facility] [address] [id number] [place] [address] May, [facility] [address] [id number] [place] [address] May, [facility] [address] [id number] [place] [address] Apr, [facility] [address] [id number] [place] [address] Apr, [facility] [id number] [place] [address] Apr, [facility] [address] [id number] [place] [address] Apr, [facility] [address] [id number] [place] [address] Mar, [facility] [address] [id number] [place] [address] Mar, [facility] [address] [id number] [place] [address] Mar, [facility] [address] [id number] [place] [address] Feb, [facility] [address] [id number] [place] [address] Feb, [facility] [address] [id number] [place] [address] Feb, [facility] [address] [id number] [place] [address] Feb, [facility] [address] [id number] [place] [address] Feb, [facility] [address] [facility] [id number] [place] [address] Feb, [facility] [address] [id number] [facility] [place] [address] Jan, [facility] [address] [id number] [place] [address] Jan, [facility] [address] [id number] [place] [address] Jan, [facility] [address] [facility] [id number] [place] [address] Jan, [facility] [address] [id number] [place] [address] Jan, [facility] [address] [id number] [place] [address] Jan, [facility] [address] [id number] [place] [address] Jan, [facility] [address] [id number] [place] [address] 25 Dec, 2012 [facility] [address] [id number] [place] [address] 16 Dec, 2012 [facility] [address] [id number] [place] [address] 10 Dec, 2012 [facility] [address] [id number] [place] [address] 05 Dec, 2012 [facility] [address] [id number] [place] [address] Nov, [facility] [address] [id number] [place] [address] Nov, [facility] [address] [id number] [place] [address] Nov, [facility] [address] [id number] [place] [address] Nov, [facility] [address] [id number] [place] [address] Nov, [facility] [address] [id number] [place] [address] Nov, [facility] [address] [id number] [place] [address] Nov, [facility] [address] [id number] [place] [address] Oct, [facility] [address] [id number] [place] [address] Oct, [facility] [address] [id number] [place] [address] Oct, [facility] [address] [id number] [place] [address] Oct, [facility] [address] [id number] [place] [address] Oct, [facility] [address] [id number] [place] [address] Oct, [facility] [address] [id number] [place] [address] Oct, [facility] [address] [id number] [place] [address] Oct, [facility] [address] [id number] [place] [address] Sep, [address]anz[address]BER[address]A [address] [id number] [place] [id number] August, [facility] [address] [id number] [place] [address] August, [facility] [address] [id number] [place] [address] Jul, [facility] [address] [id number] [place] [address] Jul, [facility] [address] [id number] [place] [address] 25 Jul, 2012 [facility] [address] [facility] [id number] [place] [address] Jul, [facility] [address] [facility] [id number] [facility] [place] [address] 18 Jul, 2012 [facility] [address] [id number] [place] [address] 17 Jul, 2012 [facility] [address] [id number] [place] [address] 16 Jul, 2012 [facility] [address] [facility] [id number] [place] [address] Jun, [facility] [address] [id number] [place] [address] Jun, [facility] [address] [id number] [place] [address] Jun, [facility] [address] [id number] [place] [address] Jun, [facility] [address] [id number] [place] [address] Jun, [facility] [address] [id number] [place] [address] May, [facility] [address] [id number] [place] [address] 18 May, 2012 [facility] [address] [id number] [place] [address] 04 May, 2012 [facility] [address] [id number] [place] [address] 15 Apr, 2012 [facility] [address] [id number] [place] [address] 14 Apr, 2012 [facility] [address] [id number] [place] [address] 07 Apr, 2012 [facility] [address] [id number] [place] [address] Mar, [facility] [address] [id number] [place] [address] 31 Mar, 2012 [facility] [address] [id number] [place] [address] Mar, [facility] [address] [id number] [place] [address] Mar, [facility] [address] [id number] [place] [address] Mar, [facility] [address] [id number] [place] [address] Mar, [facility] [address] [id number] [place] [address] Feb, [facility] [address] [id number] [place] [address] Feb, [facility] [id number] [place] [address] Jan, [facility] [address] [id number] [place] [address] Jan, [facility] [address] [id number] [place] [address] Dec, [facility] [address] [id number] [place] [address] Nov, [facility] [address] [id number] [place] [address] Nov, [facility] [address] [id number] [place] [address] Nov, [facility] [address] [id number] [place] [address] Nov, [facility] [id number] [place] [address] Oct, [facility] [address] [id number] [place] [address] Oct, [facility] [address] [id number] [place] [address] Oct, [facility] [address] [id number] [place] [address] Sep, [facility] [address] [id number] [place] [address] Sep, [facility] [address] [id number] [place] [address] Sep, [facility] [address] [id number] [place] [address] August, [facility] [address] [id number] [place] [address] August, [facility] [address] [id number] [place] [address] Jul, [facility] [address] [id number] [place] [address] Jul, [facility] [address] [id number] [place] [address] Jul, [facility] [address] [id number] [place] [address] Jul, [facility] [address] [id number] [place] [address] Jun, [facility] [address] [id number] [place] [address] May, [facility] [address] [id number] [place] [address] Apr, [facility] [address] [id number] [place] [address] Apr, [facility] [address] [id number] [place] [address] Apr, [facility] [address] [id number] [place] [address] Apr, [facility] [address] [id number] [place] [address] Apr, [facility] [address] [id number] [place] [address] Apr, [facility] [address] [id number] [place] [address] Mar, [facility] [address] [id number] [place] [address] Mar, [facility] [address] [id number] [place] [address] Feb, [facility] [address] [id number] [place] [address] Feb, [facility] [address] [id number] [place] [address] Feb, [facility] [address] [id number] [place] [address] Feb, [facility] [address] [id number] [place] [address] Jan, [facility] [address] [id number] [place] [address] Jan, [facility] [address] [id number] [place] [address] Jan, [facility] [address] [id number] [place] [address] Jan, [facility] [address] [id number] [place] [address] Nov, [facility] [address] [id number] [place] [address] Mar, [facility] [address] [id number] [place] [address] Mar, [facility] [address] [id number] [place] [address] 30 Feb, 2010 [facility] [address] [id number] [place] [address] 15 Feb, 2010 [facility] [address] [id number] [place] [address] Jan, [facility] [id number] [place] [address] 19 Jan, 2010 [facility] [id number] [place] [address] Sep, [facility] [id number] [place] [address] 16 May, 2009 [facility] [id number] [place] [address] Apr, [facility] [id number] [place] [address] Mar, [facility] [address] [address] Feb, [facility] [id number] [place] [address] Feb, [facility] [id number] [place] [address] Feb, [facility] [id number] [place] [address] Jan, [facility] [id number] [place] [address] Jan, [facility] [id number] [place] [address] Jan, [facility] [id number] [place] [address] Jan, [facility] [id number] [place] [address] August, IMMUNIZATIONS No Known Immunizations SOCIAL HISTORY [...] Hospitalization History surgery Hospitalization History [facility], indenan webber treatment few times for BH
--- OUTSIDE RECORDS SUMMARY | 2019-09-29 10:38 | XMS REPORT ---
Author Author Cameron ALANIZ [facility] Address [address] [place] [address] Care Team Providers Care Brokerage Manager Name Role Phone JEET ALANIZ Unavailable PROBLEMS Type Condition ICD9-CM Code URS32-QK Code Onset Dates Condition S tatus SNOMED Code Problem Adjustment disorder, unspecified type F43.20 Active 02966027 Problem Reactive airway disease, unspecified asthma justin rity, uncomplicated J45.909 Active 876248200134 Problem Hypertensive retinopathy of both eyes H35.033 Active 3638285 Problem Open-angle glaucoma of both eyes, unspecified glaucoma stage, unspecified open-angle glaucoma type H40.10X0 Acti ve 31344739 Problem Essential hypertension I10 Active 79877255 Problem Obstructive sleep apnea G47.33 Active 18638233 Problem Intermittent explosive disorder F63.81 Active 36196302 Problem Type 2 diabetes mellitus with complication E11.8 Active 83151181 Problem Bipolar disorder, in partial remission, most rec ent episode manic F31.73 Active 57632102 Problem Intermittent explosive disorder in adult F63.81 Active 06562797 Problem Bipolar disorder, unspecified F31.9 Active 48678746 Problem Neuropathy G62.9 Active 430872465 Problem Diabetes E11.9 Active 05623714 Problem Other specified urinary incontinence N39.498 Active 776418732 Problem Depression F32.9 Active 04792272 Problem 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 Active 97042733 Problem Mild intellectual disability F70 A ctive 48857254 Problem Reactive airway disease, mild intermittent, uncomplicated J45.20 Active 895093895 Problem Gastroesophageal reflux disease without esophagitis K21.9 Active 180215021 Problem Other diabetic neurological complication associated with type 2 diabetes mellitus E11.49 Active [id number] ALLERGIES No Information ENCOUNTERS Encounter Location Date Diagnosis [facility] [address] [id number] [place] [address] August, [facility] [address] [id number] [place] [address] Jul, [facility] [address] [address] Jul, [facility] [address] [facility] [id number] [address] [place] [address] Jun, Dysuria R30.0 [facility] [address] [address] Jun, [facility] [address] [address] May, Influenza J11.1 [place] [address] [address] 13 May, 2019 Intermittent explosive disorder in adult F63.81 [place] [address] [address] May, [facility] [address] [address] Apr, Intermittent explosive disorder in adult F63.81 ; Bipolar disorder, unspecified F31.9 and Mild intellectual disability F70 [facility] [address] [address] [id number] [address] Apr, Oral health maintenance stat us requiring routine preventive dental care K08.9 [place] [address] [address] Apr, Type 2 diabetes mellitus with complicati on E11.8 ; History of test for hearing Z92.89 ; Colon cancer screening Z12.11 ; Other specified urinary incontinence N39.498 and Impacted cerumen, right ear H61.21 [place] [id number] [place] [address] Apr, Onychomycosis B35.1 ; Other diabetic luc rological complication associated with type 2 diabetes mellitus E11.49 and Tinea pedis of both feet B35.3 [place] [id number] [place] [address] Feb, [facility] [id number] [place] [address] Jan, [facility] [id number] [place] [address] Jan, [facility] [id number] [place] [address] Jan, [facility] [id number] [place] [address] Jan, [facility] [id number] [place] [address] Jan, [facility] [id number] [place] [address] Jan, [facility] [id number] [place] [address] Jan, [facility] [id number] [place] [address] Jan, Anemia D64.9 [facility] [address] [facility] [address] [id number] [place] [address] Jan, Dental examination Z01.20 an d Oral health maintenance status requiring routine preventive dental care K08.9 [facility] [id number] [place] [address] Jan, Onychomycosis B35.1 and Other diabetic n eurological complication associated with type 2 diabetes mellitus E11.49 [facility] [id number] [place] [address] Jan, Anemia D64.9 [facility] [id number] [place] [address] Jan, [facility] [id number] [place] [address] Dec, Urinary tract infection without hematuri a, site unspecified N39.0 [facility] [address] [address] 30 Dec, 2018 Type 2 diabetes mellitus with complicati on E11.8 ; Urinary tract infection without hematuria, site unspecified N39.0 ; Impacted cerumen of both ears H61.23 ; Encounter for immunization Z23 and Hyponatremia E87.1 [facility] [address] [address] 30 Dec, 2018 Intermittent explosive disorder in adult F63.81 ; Dysuria R30.0 ; Type 2 diabetes mellitus with complication E11.8 ; Bipolar disorder, unspecified F31.9 and Mild intellectual disability F70 [place] [address] [address] Dec, Dysuria R30.0 [place] [address] [address] 24 Dec, 2018 Intermittent explosive disorder in adult F63.81 ; Bipolar disorder, unspecified F31.9 and Mild intellectual disability F70 [place] [address] [address] Nov, [address] [address] Oct, [facility] [address] [address] [id number] [place] [address] Oct, Oral health maintenance stat us requiring routine preventive dental care K08.[address] [address] August, Intermittent explosive disorder in adult F63.81 ; Bipolar disorder, unspecified F31.9 and Mild intellectual disability F70 [facility] [address] [facility] [id number] [place] [id number] August, Dental caries K02.9 [facility] [address] [address] Jul, Onychomycosis B35.1 ; Other diabetic luc rological complication associated with type 2 diabetes mellitus E11.49 and Tinea pedis of both feet B35.3 [facility] [address] [facility] [place] [id number] Jul, Caries K02.9 [place] [address] [address] Jul, Type 2 diabetes mellitus with complicati on E11.8 ; Tobacco abuse Z72.0 and Bipolar disorder, unspecified F31.9 [place] [address] [address] Jun, [facility] [address] [id number] Jun, Dental examination Z01.20 and Oral healt h maintenance status requiring routine preventive dental care K08.9 [place] [address] [address] May, Bilateral impacted cerumen H61.23 [place] [address] [address] Apr, Bipolar disorder, unspecified F31.9 ; In termittent explosive disorder in adult F63.81 ; Type 2 diabetes mellitus with complication E11.8 ; Tobacco abuse Z72.0 and Colon cancer screening Z12.11 [place] [address] [address] Apr, Onychomycosis B35.1 and Other diabetic n eurological complication associated with type 2 diabetes mellitus E11.49 [place] [address] [address] Apr, Intermittent explosive disorder in adult F63.81 ; Bipolar disorder, unspecified F31.9 and Mild intellectual disability F70 [place] [address] [address] Mar, Diabetes E11.9 [facility] [address] [facility] [id number] [address] [place] [address] Jan, Encounter for immunization Z 23 [place] [address] [address] Jan, Tinea pedis of both feet B35.3 ; Other d iabetic neurological complication associated with type 2 diabetes mellitus E11.49 and Onychomycosis B35.1 [place] [address] [address] Nov, Type 2 diabetes mellitus with complicati on E11.8 [place] [address] [address] Nov, [place] [address] [address] Oct, Intermittent explosive disorder in adult F63.81 ; Bipolar disorder, unspecified F31.9 and Mild intellectual disability F70 [place] [address] [address] Oct, [facility] [address] [id number] Oct, Dental examination Z01.20 [place] [address] [address] Oct, Onychomycosis B35.1 and Other diabetic n eurological complication associated with type 2 diabetes mellitus E11.49 [place] [address] [address] Sep, Type 2 diabetes mellitus with complicati on E11.8 and Colon cancer screening Z12.11 [place] [address] [address] Sep, Type 2 diabetes mellitus with complicati on E11.8 ; Colon cancer screening Z12.11 and Neuropathy G62.9 [place] [address] [address] August, Diabetes E11.9 [facility] [address] [id number] Jul, Dental examination Z01.20 [place] [address] [address] May, Mild intellectual disability F70 [place] [address] [address] 07 May, 2017 Mild intellectual disability F70 ; High risk medication use Z79.899 ; Intermittent explosive disorder in adult F63.81 and Bipolar disorder, unspecified F31.9 [facility] [address] [address] May, [facility] [address] [address] May, [facility] [address] [address] Apr, Type 2 diabetes mellitus with complicati on E11.8 ; Mild intellectual disability F70 ; Gastroesophageal reflux disease without esophagitis K21.9 ; Reactive airway disease, mild intermittent, uncomplicated J45.20 and Tobacco abuse Z72.0 [place] [address] [address] Apr, High risk medication use Z79.899 ; Mild intellectual disability F70 ; Intermittent explosive disorder in adult F63.81 and Bipolar disorder, unspecified F31.9 [facility] [address] [id number] Mar, Encounter for dental exam and cleaning w /o abnormal findings Z01.20 [facility] [address] [id number] Mar, Dental examination Z01.20 [facility] [address] [address] 12 Jan, 2017 [facility] [address] [address] Jan, [facility] [address] [address] Jan, Mild intellectual disability F70 ; Bipol ar disorder, unspecified F31.9 and Intermittent explosive disorder in adult F63.81 [facility] [address] [address] Jan, Diabetes E11.9 [facility] [address] [id number] 13 Dec, 2016 Encounter for dental examination and osei aning without abnormal findings Z01.20 [facility] [address] [address] 12 Dec, 2016 Bipolar disorder, unspecified F31.9 ; In termittent explosive disorder in adult F63.81 and Mild intellectual disability F70 [facility] [address] [address] Nov, Diabetes E11.9 [facility] [address] [address] Nov, [facility] [address] [address] Nov, Diabetes E11.9 and Colon cancer screenin g Z12.11 [facility] [address] [id number] [employer] [place] [id number] Sep, Dental examination Z01.20 [facility] [address] [id number] Sep, Encounter for dental examination and osei aning without abnormal findings Z01.20 [facility] [address] [address] Sep, Bipolar disorder, unspecified F31.9 [facility] [address] [address] Sep, Bipolar disorder, unspecified F31.9 [facility] [address] [address] Jul, [facility] [address] [address] Jul, Type 2 diabetes mellitus with complicati on E11.8 [facility] [address] [id number] Jun, Encounter for dental examination and osei aning without abnormal findings Z01.20 [facility] [address] [id number] [id number] Jun, Dental examination Z01.20 [facility] [address] [address] 18 Apr, 2016 Sports physical Z02.5 [facility] [address] [address] 14 Mar, 2016 Bipolar disorder, in partial remission, most recent episode manic F31.73 and Intermittent explosive disorder in adult F63.81 [facility] [address] [address] 08 Mar, 2016 [place] [address] [address] Mar, Diabetes E11.9 [facility] [address] [id number] Feb, Encounter for dental examination and osei aning without abnormal findings Z01.20 [place] [address] [address] 22 Dec, 2015 Nocturnal hypoxemia G47.34 and Encounter for immunization Z23 [place] [address] [address] 15 Dec, 2015 [place] [address] [address] Dec, [address] [address] Dec, Bipolar disorder, unspecified F31.9 [facility] [address] [id number] Oct, Encounter for dental examination and osei aning without abnormal findings Z01.20 [facility] [id number] [place] [id number] Oct, Dental examination Z01.20 [facility] [address] [address] Oct, Diabetes E11.9 [facility] [address] [address] Oct, Diabetes E11.9 ; Reactive airway disease , mild intermittent, uncomplicated J45.20 and Tobacco abuse Z72.0 [place] [address] [address] Sep, Bipolar disorder, unspecified F31.9 and Depression F32.9 [place] [address] [address] Sep, [place] [address] [address] August, Tinea pedis of both feet B35.3 and DM w/ o complication type II, uncontrolled E11.65 [place] [address] [address] Jul, [place] [address] [address] Jul, [place] [address] [address] Jul, Obstructive sleep apnea G47.33 [place] [address] [address] Jun, Diabetes E11.9 [place] [address] [address] Jun, [place] [address] [address] Jun, [place] [address] [address] Jun, Bipolar disorder, unspecified F31.9 and Mental retardation F79 [place] [address] [address] Apr, [address] [address] Feb, Diabetes E11.9 ; Encounter for immunizat ion Z23 ; Cough R05 and Nicotine abuse Z72.0 [place] [address] [address] Jan, Bipolar disorder, unspecified F31.9 and Diabetes mellitus without mention of complication, type II or unspecified type, uncontrolled 250.02 [place] [address] [address] Jan, [facility] [address] [address] Dec, Reactive airway disease 493.90 and Enure sis 788.30 [place] [address] [address] Dec, [place] [address] [address] Nov, [place] [address] [address] Nov, [place] [address] [address] Nov, Annual physical exam V70.0 ; Urinary inc ontinence 788.30 ; Diabetes 250.00 and Hypertension 401.9 [place] [address] [address] Oct, Diabetes mellitus without mention of com plication, type II or unspecified type, uncontrolled 250.02 [place] [address] [address] Oct, Diabetes mellitus without mention of com plication, type II or unspecified type, uncontrolled 250.02 [place] [address] [address] Oct, Diabetes mellitus without mention of com plication, type II or unspecified type, uncontrolled 250.02 [place] [address] [address] Oct, [facility] [address] [address] Oct, [facility] [address] [address] Oct, Bipolar disorder, unspecified 296.80 [facility] [address] [facility] [place] [id number] Sep, Dental examination V72.2 [facility] [id number] [place] [address] August, [facility] [address] [id number] [place] [id number] August, Dental examination V72.2 [facility] [id number] [place] [address] August, [facility] [id number] [place] [address] Jul, [facility] [id number] [place] [address] Jul, [facility] [id number] [place] [address] Jun, [facility] [id number] [place] [address] Jun, [facility] [id number] [place] [address] Jun, [facility] [id number] [place] [address] Jun, [facility] [id number] [place] [address] May, [facility] [id number] [place] [address] May, [facility] [id number] [place] [address] May, [facility] [id number] [place] [address] May, [facility] [id number] [place] [address] May, [facility] [id number] [place] [address] May, [facility] [address] [id number] [place] [address] 16 May, 2014 [facility] [address] [id number] [place] [address] May, 2014 [facility] [address] [id number] [place] [address] May, 2014 [facility] [address] [id number] [place] [address] May, 2014 [facility] [address] [id number] [place] [address] May, 2014 [facility] [address] [id number] [place] [address] May, 2014 [facility] [address] [id number] [place] [address] May, 2014 [facility] [address] [id number] [place] [address] May, 2014 [facility] [address] [id number] [place] [address] May, 2014 [facility] [address] [id number] [place] [address] Apr, [facility] [address] [id number] [place] [address] Apr, [facility] [address] [id number] [place] [address] Apr, [facility] [address] [id number] [place] [address] Apr, [facility] [address] [id number] [place] [address] Apr, [facility] [address] [id number] [place] [address] Apr, [facility] [address] [id number] [place] [address] Apr, [facility] [address] [id number] [place] [address] Apr, [facility] [address] [facility] [id number] [place] [address] Apr, [facility] [address] [id number] [place] [address] Apr, [facility] [address] [id number] [place] [address] Apr, [facility] [address] [id number] [place] [address] Apr, [facility] [address] [id number] [place] [address] Mar, [facility] [address] [id number] [place] [address] Mar, [facility] [address] [id number] [place] [address] Mar, [facility] [address] [id number] [place] [address] Mar, [facility] [address] [id number] [place] [address] Mar, [facility] [address] [id number] [place] [address] Mar, [facility] [address] [id number] [place] [address] Feb, [facility] [address] [id number] [place] [address] Feb, [facility] [address] [id number] [place] [address] Feb, [facility] [address] [id number] [place] [address] 13 Feb, 2014 [facility] [address] [id number] [place] [address] 14 Jan, 2014 [facility] [address] [id number] [place] [address] 14 Jan, 2014 [facility] [address] [id number] [place] [address] 14 Jan, 2014 [facility] [address] [facility] [id number] [place] [address] 14 Jan, 2014 [facility] [address] [facility] [id number] [place] [address] Dec, [facility] [address] [facility] [id number] [place] [address] Dec, [facility] [address] [facility] [id number] [place] [address] 15 Dec, 2013 [facility] [address] [facility] [id number] [place] [address] Dec, [facility] [address] [id number] [place] [address] Nov, [facility] [address] [id number] [place] [address] Nov, [facility] [address] [id number] [place] [address] Nov, [facility] [address] [id number] [place] [address] Nov, [facility] [address] [id number] [place] [address] Nov, [facility] [address] [id number] [place] [address] Nov, [facility] [address] [id number] [place] [address] Nov, [facility] [address] [facility] [id number] [place] [address] Oct, [facility] [address] [id number] [place] [address] Oct, [facility] [address] [id number] [place] [address] Oct, [facility] [address] [id number] [place] [address] Oct, [facility] [address] [id number] [place] [address] Oct, [facility] [address] [id number] [place] [address] Oct, [facility] [address] [facility] [id number] [place] [address] Oct, [facility] [address] [id number] [place] [address] Sep, [facility] [address] [facility] [id number] [place] [address] Sep, [facility] [address] [id number] [place] [address] Sep, [facility] [address] [id number] [place] [address] Sep, [facility] [address] [id number] [place] [address] Sep, [facility] [address] [id number] [place] [address] Jul, [facility] [address] [id number] [place] [address] Jul, [facility] [address] [id number] [place] [address] Jul, [facility] [address] [id number] [place] [address] Jul, [facility] [address] [id number] [place] [address] Jul, [facility] [address] [id number] [place] [address] Jul, [facility] [address] [id number] [place] [address] Jul, [facility] [address] [id number] [place] [address] Jul, [facility] [address] [id number] [place] [address] Jul, [facility] [address] [facility] [id number] [place] [address] Jul, [facility] [address] [facility] [id number] [place] [address] Jul, [facility] [address] [id number] [place] [address] Jul, [facility] [address] [id number] [place] [address] Jun, [facility] [address] [facility] [id number] [place] [address] Jun, [facility] [address] [id number] [place] [address] Jun, [facility] [address] [id number] [place] [address] Jun, [facility] [address] [id number] [place] [address] Jun, [facility] [address] [id number] [place] [address] Jun, [facility] [address] [id number] [place] [address] Jun, [facility] [address] [id number] [place] [address] Jun, [facility] [address] [id number] [place] [address] May, [facility] [address] [facility] [id number] [place] [address] May, [facility] [address] [id number] [place] [address] May, [facility] [address] [id number] [place] [address] May, [facility] [address] [id number] [place] [address] May, [facility] [address] [facility] [id number] [place] [address] May, [facility] [address] [id number] [place] [address] May, [facility] [address] [id number] [place] [address] May, [facility] [address] [id number] [place] [address] Apr, [facility] [address] [facility] [id number] [place] [address] Apr, [facility] [address] [id number] [place] [address] Apr, [facility] [address] [id number] [place] [address] Apr, [facility] [address] [id number] [place] [address] Mar, [facility] [address] [id number] [place] [address] Mar, [facility] [address] [id number] [place] [address] Mar, [facility] [address] [id number] [place] [address] Feb, [facility] [address] [id number] [place] [address] Feb, [facility] [address] [id number] [place] [address] Feb, [facility] [address] [id number] [place] [address] Feb, [facility] [address] [id number] [place] [address] Feb, [facility] [address] [id number] [place] [address] Feb, [facility] [address] [id number] [place] [address] Jan, [facility] [address] [facility] [id number] [place] [address] Jan, [facility] [address] [facility] [id number] [place] [address] Jan, [facility] [address] [id number] [place] [address] Jan, [facility] [address] [id number] [place] [address] Jan, [facility] [address] [facility] [id number] [place] [address] Jan, [facility] [address] [id number] [place] [address] Jan, [facility] [address] [id number] [place] [address] Dec, [facility] [address] [id number] [place] [address] 16 Dec, 2012 [facility] [address] [id number] [place] [address] Dec, [facility] [address] [id number] [place] [address] Dec, [facility] [address] [id number] [place] [address] Nov, [facility] [address] [id number] [place] [address] Nov, [facility] [address] [id number] [place] [address] Nov, [facility] [address] [id number] [place] [address] Nov, [facility] [address] [id number] [place] [address] Nov, [facility] [address] [id number] [place] [address] Nov, [facility] [address] [id number] [place] [address] Nov, [facility] [address] [id number] [place] [address] Oct, [facility] [address] [id number] [place] [address] Oct, [facility] [address] [id number] [place] [address] Oct, [facility] [address] [id number] [place] [address] Oct, [facility] [address] [id number] [place] [address] Oct, [facility] [address] [id number] [place] [address] Oct, [facility] [address] [id number] [place] [address] Oct, [facility] [address] [id number] [place] [address] Oct, [facility] [address] [id number] [place] [address] Sep, Suleiman PEREZ [address] [facility] [id number] [facility] [place] [id number] August, [facility] [address] [id number] [place] [address] August, [facility] [address] [id number] [place] [address] Jul, [facility] [address] [id number] [place] [address] Jul, [facility] [address] [id number] [place] [address] Jul, [facility] [address] [id number] [place] [address] Jul, [facility] [address] [id number] [place] [address] 18 Jul, 2012 [facility] [address] [facility] [id number] [place] [address] 17 Jul, 2012 [facility] [address] [facility] [id number] [place] [address] 16 Jul, 2012 [facility] [address] [id number] [place] [address] 21 Jun, 2012 [facility] [address] [id number] [place] [address] 18 Jun, 2012 [facility] [address] [facility] [id number] [place] [address] 11 Jun, 2012 [facility] [address] [id number] [place] [address] 04 Jun, 2012 [facility] [address] [id number] [place] [address] 04 Jun, 2012 [facility] [address] [id number] [place] [address] 19 May, 2012 [facility] [address] [id number] [place] [address] 18 May, 2012 [facility] [address] [id number] [place] [address] 04 May, 2012 [facility] [address] [id number] [place] [address] 15 Apr, 2012 [facility] [address] [id number] [place] [address] 14 Apr, 2012 [facility] [address] [id number] [place] [address] 07 Apr, 2012 [facility] [address] [id number] [place] [address] Mar, [facility] [address] [id number] [place] [address] Mar, [facility] [address] [id number] [place] [address] Mar, [facility] [address] [id number] [place] [address] 13 Mar, 2012 [facility] [address] [id number] [place] [address] Mar, [facility] [address] [id number] [place] [address] Mar, [facility] [address] [id number] [place] [address] Feb, [facility] [address] [id number] [place] [address] Feb, [facility] [address] [id number] [place] [address] Jan, [facility] [address] [id number] [place] [address] Jan, [facility] [address] [id number] [place] [address] Dec, [facility] [id number] [place] [address] Nov, [facility] [address] [id number] [place] [address] Nov, [facility] [address] [id number] [place] [address] Nov, [facility] [address] [id number] [place] [address] Nov, [facility] [address] [id number] [place] [address] Oct, [facility] [address] [id number] [place] [address] Oct, [facility] [id number] [place] [address] Oct, [facility] [address] [id number] [place] [address] Sep, [facility] [address] [id number] [place] [address] Sep, [facility] [address] [id number] [place] [address] Sep, [facility] [address] [id number] [place] [address] August, [facility] [address] [id number] [place] [address] August, [facility] [address] [id number] [place] [address] Jul, [facility] [address] [id number] [place] [address] Jul, [facility] [address] [id number] [place] [address] Jul, [facility] [address] [id number] [place] [address] Jul, [facility] [address] [id number] [place] [address] Jun, [facility] [address] [id number] [place] [address] May, [facility] [address] [id number] [place] [address] Apr, [facility] [address] [id number] [place] [address] Apr, [facility] [address] [id number] [place] [address] Apr, [facility] [address] [id number] [place] [address] Apr, [facility] [address] [id number] [place] [address] Apr, [facility] [address] [id number] [place] [address] Apr, [facility] [address] [id number] [place] [address] Mar, [facility] [address] [id number] [place] [address] Mar, [facility] [address] [id number] [place] [address] Feb, [facility] [address] [id number] [place] [address] Feb, [facility] [address] [id number] [place] [address] 17 Feb, 2011 [facility] [address] [id number] [place] [address] Feb, [facility] [address] [id number] [place] [address] Jan, [facility] [address] [id number] [place] [address] Jan, [facility] [address] [id number] [place] [address] Jan, [facility] [address] [id number] [place] [address] Jan, [facility] [address] [id number] [place] [address] Nov, [facility] [address] [id number] [place] [address] Mar, [facility] [address] [id number] [place] [address] Mar, [facility] [address] [id number] [place] [address] 30 Feb, 2010 [facility] [address] [id number] [place] [address] 15 Feb, 2010 [facility] [address] [id number] [place] [address] Jan, [facility] [address] [id number] [place] [address] Jan, [facility] [address] [id number] [place] [address] Sep, [facility] [address] [id number] [place] [address] 16 May, 2009 [facility] [address] [id number] [place] [address] Apr, [facility] [address] [id number] [place] [address] Mar, [facility] [id number] [place] [address] Feb, [facility] [id number] [place] [address] Feb, [facility] [id number] [place] [address] Feb, [facility] [address] [id number] [place] [address] Jan, [facility] [id number] [place] [address] Jan, [facility] [id number] [place] [address] Jan, [facility] [address] [id number] [place] [address] Jan, [facility] [address] [id number] [place] [address] August, IMMUNIZATIONS No Known Immunizations SOCIAL HISTORY [...] 7 Hospitalization History surgery Hospitalization History [facility], inia tient treatment few times for BH
--- OUTSIDE RECORDS SUMMARY | 2019-09-29 10:38 | XMS REPORT ---
Author Author Cameron Estrella Doctor Organization [facility] Address Unknown Phone Unavailable Care Team Providers Care Residential Recycle Driver Name Role Phone Migration, Doctor Unavailable Unavailable PROBLEMS Type Condition ICD9-CM Code JAY21-NN Code Onset Dates Condition S tatus SNOMED Code Problem Adjustment disorder, unspecified type F43.20 Active 20295100 Problem Reactive airway disease, unspecified asthma justin rity, uncomplicated J45.909 Active 791446207606 Problem Hypertensive retinopathy of both eyes H35.033 Active 5126182 Problem Open-angle glaucoma of both eyes, unspecified glaucoma stage, unspecified open-angle glaucoma type H40.10X0 Acti ve 34607840 Problem Essential hypertension I10 Active 76653623 Problem Obstructive sleep apnea G47.33 Active 19661917 Problem Intermittent explosive disorder F63.81 Active 71483458 Problem Type 2 diabetes mellitus with complication E11.8 Active 13176228 Problem Bipolar disorder, in partial remission, most rec ent episode manic F31.73 Active 18595564 Problem Intermittent explosive disorder in adult F63.81 Active 12196740 Problem Bipolar disorder, unspecified F31.9 Active 72069399 Problem Neuropathy G62.9 Active 060804969 Problem Diabetes E11.9 Active 54937729 Problem Other specified urinary incontinence N39.498 Active 012903918 Problem Depression F32.9 Active 06128407 Problem 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 Active 30294378 Problem Mild intellectual disability F70 A ctive 94197872 Problem Reactive airway disease, mild intermittent, uncomplicated J45.20 Active 724561241 Problem Gastroesophageal reflux disease without esophagitis K21.9 Active 840293532 Problem Other diabetic neurological complication associated with type 2 diabetes mellitus E11.49 Active 218145514 ALLERGIES No Information ENCOUNTERS Encounter Location Date Diagnosis [facility] [address] [id number] [place] [address] August, [facility] [address] [id number] [place] [address] Jul, [facility] [address] [address] Jul, [facility] [address] [address] Jun, [facility] [address] [address] May, Influenza J11.1 [place] [address] [address] 13 May, 2019 Intermittent explosive disorder in adult F63.81 [place] [address] [address] May, [place] [address] [address] Apr, Intermittent explosive disorder in adult F63.81 ; Bipolar disorder, unspecified F31.9 and Mild intellectual disability F70 [facility] [address] [facility] [address] [id number] [address] Apr, Oral health maintenance stat us requiring routine preventive dental care K08.9 [place] [address] [address] Apr, Type 2 diabetes mellitus with complicati on E11.8 ; History of test for hearing Z92.89 ; Colon cancer screening Z12.11 ; Other specified urinary incontinence N39.498 and Impacted cerumen, right ear H61.21 [place] [address] [address] 10 Apr, 2019 Onychomycosis B35.1 ; Other diabetic luc rological complication associated with type 2 diabetes mellitus E11.49 and Tinea pedis of both feet B35.3 [place] [address] [address] 14 Feb, 2019 [place] [address] [address] Jan, [place] [address] [place] [address] Jan, [facility] [address] [address] Jan, [facility] [address] [address] Jan, [facility] [address] [address] Jan, [facility] [address] [address] Jan, [facility] [address] [address] Jan, [facility] [address] [address] Jan, Anemia D64.9 [facility] [facility] [address] [place] [address] [id number] [address] Jan, Dental examination Z01.20 an d Oral health maintenance status requiring routine preventive dental care K08.9 [place] [address] [address] Jan, Onychomycosis B35.1 and Other diabetic n eurological complication associated with type 2 diabetes mellitus E11.49 [place] [address] [address] Jan, Anemia D64.9 [facility] [address] [address] Jan, [facility] [address] [address] Dec, Urinary tract infection without hematuri a, site unspecified N39.0 [facility] [address] [address] Dec, Type 2 diabetes mellitus with complicati on E11.8 ; Urinary tract infection without hematuria, site unspecified N39.0 ; Impacted cerumen of both ears H61.23 ; Encounter for immunization Z23 and Hyponatremia E87.1 [facility] [address] [address] 30 Dec, 2018 Intermittent explosive disorder in adult F63.81 ; Dysuria R30.0 ; Type 2 diabetes mellitus with complication E11.8 ; Bipolar disorder, unspecified F31.9 and Mild intellectual disability F70 [facility] [address] [address] Dec, Dysuria R30.0 [facility] [address] [address] Dec, Intermittent explosive disorder in adult F63.81 ; Bipolar disorder, unspecified F31.9 and Mild intellectual disability F70 [facility] [address] [place] [id number] Nov, [facility] [address] [address] Oct, OUTREACH [facility] [address] [place] [address] [id number] [place] [address] Oct, Oral health maintenance stat us requiring routine preventive dental care K08.9 [facility] [address] [address] August, Intermittent explosive disorder in adult F63.81 ; Bipolar disorder, unspecified F31.9 and Mild intellectual disability F70 [facility] [address] [id number] August, Dental caries K02.9 [facility] [address] [address] Jul, Onychomycosis B35.1 ; Other diabetic luc rological complication associated with type 2 diabetes mellitus E11.49 and Tinea pedis of both feet B35.[address] [facility] [address] [id number] Jul, Caries K02.9 [facility] [address] [address] Jul, Type 2 diabetes mellitus with complicati on E11.8 ; Tobacco abuse Z72.0 and Bipolar disorder, unspecified F31.9 [facility] [address] [place] [id number] [place] [address] Jun, [facility] [address] [facility] [id number] [place] [id number] Jun, Dental examination Z01.20 and Oral healt h maintenance status requiring routine preventive dental care K08.9 [place] [address] [address] 11 May, 2018 Bilateral impacted cerumen H61.23 [place] [address] [address] Apr, Bipolar disorder, unspecified F31.9 ; In termittent explosive disorder in adult F63.81 ; Type 2 diabetes mellitus with complication E11.8 ; Tobacco abuse Z72.0 and Colon cancer screening Z12.11 [place] [address] [address] Apr, Onychomycosis B35.1 and Other diabetic n eurological complication associated with type 2 diabetes mellitus E11.49 [place] [address] [address] Apr, Intermittent explosive disorder in adult F63.81 ; Bipolar disorder, unspecified F31.9 and Mild intellectual disability F70 [place] [address] [address] Mar, Diabetes E11.9 [facility] [address] [facility] [id number] [address] [place] [address] Jan, Encounter for immunization Z 23 [place] [address] [address] Jan, Tinea pedis of both feet B35.3 ; Other d iabetic neurological complication associated with type 2 diabetes mellitus E11.49 and Onychomycosis B35.1 [place] [address] [address] Nov, Type 2 diabetes mellitus with complicati on E11.8 [place] [address] [address] Nov, [place] [address] [address] Oct, Intermittent explosive disorder in adult F63.81 ; Bipolar disorder, unspecified F31.9 and Mild intellectual disability F70 [place] [address] [address] Oct, [facility] [address] [id number] Oct, Dental examination Z01.20 [place] [address] [address] Oct, Onychomycosis B35.1 and Other diabetic n eurological complication associated with type 2 diabetes mellitus E11.49 [place] [address] [address] Sep, Type 2 diabetes mellitus with complicati on E11.8 and Colon cancer screening Z12.11 [place] [address] [address] Sep, Type 2 diabetes mellitus with complicati on E11.8 ; Colon cancer screening Z12.11 and Neuropathy G62.9 [place] [address] [address] August, Diabetes E11.[address] [facility] [address] [id number] Jul, Dental examination Z01.20 [place] [address] [address] May, Mild intellectual disability F70 [place] [address] [address] 07 May, 2017 Mild intellectual disability F70 ; High risk medication use Z79.899 ; Intermittent explosive disorder in adult F63.81 and Bipolar disorder, unspecified F31.9 [place] [address] [address] May, [facility] [address] [address] May, [facility] [address] [address] Apr, Type 2 diabetes mellitus with complicati on E11.8 ; Mild intellectual disability F70 ; Gastroesophageal reflux disease without esophagitis K21.9 ; Reactive airway disease, mild intermittent, uncomplicated J45.20 and Tobacco abuse Z72.0 [place] [address] [address] Apr, High risk medication use Z79.899 ; Mild intellectual disability F70 ; Intermittent explosive disorder in adult F63.81 and Bipolar disorder, unspecified F31.[address] [facility] [address] [id number] Mar, Encounter for dental exam and cleaning w /o abnormal findings Z01.[address] [facility] [address] [id number] Mar, Dental examination Z01.20 [place] [address] [address] 12 Jan, 2017 [place] [address] [address] Jan, [place] [address] [address] Jan, Mild intellectual disability F70 ; Bipol ar disorder, unspecified F31.9 and Intermittent explosive disorder in adult F63.81 [facility] [address] [address] 02 Jan, 2017 Diabetes E11.[address] [facility] [address] [id number] Dec, Encounter for dental examination and osei aning without abnormal findings Z01.20 [place] [address] [address] Dec, Bipolar disorder, unspecified F31.9 ; In termittent explosive disorder in adult F63.81 and Mild intellectual disability F70 [facility] [address] [address] Nov, Diabetes E11.9 [facility] [address] [address] Nov, [facility] [address] [address] 14 Nov, 2016 Diabetes E11.9 and Colon cancer screenin g Z12.11 [facility] [address] [facility] [place] [id number] 21 Sep, 2016 Dental examination Z01.[address] [facility] [address] [id number] 21 Sep, 2016 Encounter for dental examination and osei aning without abnormal findings Z01.20 [facility] [address] [address] 13 Sep, 2016 Bipolar disorder, unspecified F31.9 [facility] [address] [address] 12 Sep, 2016 Bipolar disorder, unspecified F31.9 [facility] [address] [address] 26 Jul, 2016 [facility] [address] [address] 13 Jul, 2016 Type 2 diabetes mellitus with complicati on E11.[address] [facility] [address] [id number] 15 Jun, 2016 Encounter for dental examination and osei aning without abnormal findings Z01.20 [facility] [address] [id number] [place] [id number] 15 Jun, 2016 Dental examination Z01.20 [facility] [address] [address] 18 Apr, 2016 Sports physical Z02.5 [facility] [address] [place] [id number] 14 Mar, 2016 Bipolar disorder, in partial remission, most recent episode manic F31.73 and Intermittent explosive disorder in adult F63.81 [facility] [address] [place] [id number] 08 Mar, 2016 [facility] [address] [address] 06 Mar, 2016 Diabetes E11.[address] [facility] [address] [id number] Feb, Encounter for dental examination and osei aning without abnormal findings Z01.20 [facility] [address] [address] 22 Dec, 2015 Nocturnal hypoxemia G47.34 and Encounter for immunization Z23 [facility] [address] [address] 15 Dec, 2015 [facility] [address] [address] 12 Dec, 2015 [facility] [address] [address] 12 Dec, 2015 Bipolar disorder, unspecified F31.[address] [facility] [address] [id number] Oct, Encounter for dental examination and osei aning without abnormal findings Z01.20 [place] [address] [address] [id number] [id number] 13 Oct, 2015 Dental examination Z01.20 [facility] [address] [address] 07 Oct, 2015 Diabetes E11.9 [facility] [address] [address] 05 Oct, 2015 Diabetes E11.9 ; Reactive airway disease , mild intermittent, uncomplicated J45.20 and Tobacco abuse Z72.0 [facility] [address] [address] 06 Sep, 2015 Bipolar disorder, unspecified F31.9 and Depression F32.9 [place] [address] [address] Sep, [place] [address] [address] August, Tinea pedis of both feet B35.3 and DM w/ o complication type II, uncontrolled E11.65 [place] [address] [address] Jul, [place] [address] [address] Jul, [place] [address] [address] Jul, Obstructive sleep apnea G47.[address] [address] Jun, Diabetes E11.9 [place] [address] [address] Jun, [place] [address] [address] Jun, [address] [address] Jun, Bipolar disorder, unspecified F31.9 and Mental retardation F79 [address] [address] Apr, [address] [address] Feb, Diabetes E11.9 ; Encounter for immunizat ion Z23 ; Cough R05 and Nicotine abuse Z72.[address] [address] Jan, Bipolar disorder, unspecified F31.9 and Diabetes mellitus without mention of complication, type II or unspecified type, uncontrolled 250.[address] [address] Jan, [id number] [place] [address] Dec, Reactive airway disease 493.90 and Enure sis 788.30 [facility] [address] [address] Dec, [facility] [address] [address] Nov, [facility] [address] [address] Nov, [place] [address] [address] Nov, Annual physical exam V70.0 ; Urinary inc ontinence 788.30 ; Diabetes 250.00 and Hypertension 401.9 [place] [address] [address] Oct, Diabetes mellitus without mention of com plication, type II or unspecified type, uncontrolled 250.02 [place] [address] [address] Oct, Diabetes mellitus without mention of com plication, type II or unspecified type, uncontrolled 250.02 [place] [address] [address] Oct, Diabetes mellitus without mention of com plication, type II or unspecified type, uncontrolled 250.02 [facility] [address] [address] Oct, [facility] [address] [address] Oct, [facility] [address] [address] Oct, Bipolar disorder, unspecified 296.[address] [facility] [address] [id number] [place] [id number] Sep, Dental examination V72.2 [facility] [address] [address] August, [facility] [address] [facility] [id number] [place] [id number] August, Dental examination V72.2 [facility] [address] [id number] [place] [address] August, [facility] [place] [facility] [address] [id number] [place] [address] 14 Jul, 2014 [facility] [place] [facility] [address] [id number] [place] [address] Jul, [facility] [place] [facility] [address] [id number] [place] [address] Jun, [facility] [place] [facility] [address] [id number] [place] [address] Jun, [facility] [place] [facility] [address] [id number] [place] [address] Jun, [facility] [place] [facility] [address] [id number] [place] [address] Jun, [facility] [place] [facility] [address] [id number] [place] [address] May, [facility] [place] [facility] [address] [id number] [place] [address] May, [facility] [place] [facility] [address] [id number] [place] [address] 16 May, 2014 [facility] [place] [facility] [address] [id number] [place] [address] May, 2014 [facility] [place] [facility] [address] [id number] [place] [address] 16 May, 2014 [facility] [place] [facility] [address] [id number] [place] [address] May, 2014 [facility] [place] [facility] [address] [id number] [place] [address] 16 May, 2014 [facility] [place] [facility] [address] [id number] [place] [address] 16 May, 2014 [facility] [place] [facility] [address] [id number] [place] [address] 16 May, 2014 [facility] [place] [facility] [address] [facility] [id number] [place] [address] May, [facility] [place] [facility] [address] [id number] [place] [address] May, 2014 [facility] [place] [facility] [address] [id number] [place] [address] May, 2014 [facility] [place] [facility] [address] [id number] [place] [address] May, 2014 [facility] [place] [facility] [address] [id number] [place] [address] May, [facility] [place] [facility] [address] [id number] [place] [address] May, [facility] [place] [facility] [address] [id number] [place] [address] Apr, [facility] [place] [facility] [address] [id number] [place] [address] Apr, [facility] [place] [facility] [address] [id number] [place] [address] Apr, [facility] [place] [facility] [address] [id number] [place] [address] Apr, [facility] [place] [facility] [address] [id number] [place] [address] Apr, [facility] [place] [facility] [address] [id number] [place] [address] Apr, [facility] [place] [facility] [address] [id number] [place] [address] Apr, [facility] [place] [facility] [address] [id number] [place] [address] Apr, [facility] [place] [facility] [address] [id number] [place] [address] Apr, [facility] [place] [facility] [address] [id number] [place] [address] Apr, [facility] [place] [facility] [address] [id number] [place] [address] Apr, [facility] [place] [facility] [address] [id number] [place] [address] Apr, [facility] [place] [facility] [address] [id number] [place] [address] Mar, [facility] [place] [facility] [address] [id number] [place] [address] Mar, [facility] [place] [facility] [address] [facility] [id number] [place] [address] Mar, [facility] [place] [facility] [address] [id number] [place] [address] Mar, [facility] [place] [facility] [address] [id number] [place] [address] Mar, [facility] [place] [facility] [address] [id number] [place] [address] Mar, [facility] [place] [facility] [address] [id number] [place] [address] Feb, [facility] [place] [facility] [address] [id number] [place] [address] Feb, [facility] [place] [facility] [address] [id number] [place] [address] Feb, [facility] [place] [facility] [address] [id number] [place] [address] Feb, [facility] [place] [facility] [address] [id number] [place] [address] 14 Jan, 2014 [facility] [place] [facility] [address] [id number] [place] [address] 14 Jan, 2014 [facility] [place] [facility] [address] [id number] [place] [address] 14 Jan, 2014 [facility] [place] [facility] [address] [id number] [place] [address] 14 Jan, 2014 [facility] [place] [facility] [address] [id number] [place] [address] Dec, [facility] [place] [facility] [address] [id number] [place] [address] Dec, [facility] [place] [facility] [address] [facility] [id number] [facility] [place] [address] Dec, [facility] [place] [facility] [address] [id number] [place] [address] Dec, [facility] [place] [facility] [address] [facility] [id number] [place] [address] Nov, [facility] [place] [facility] [address] [facility] [id number] [facility] [address] Nov, [facility] [place] [facility] [address] [id number] [place] [address] Nov, [facility] [place] [facility] [address] [id number] [place] [address] Nov, [facility] [place] [facility] [address] [id number] [place] [address] Nov, [facility] [place] [facility] [address] [facility] [id number] [place] [address] Nov, [facility] [place] [facility] [address] [id number] [place] [address] Nov, [facility] [place] [facility] [address] [id number] [place] [address] Oct, [facility] [place] [facility] [address] [id number] [place] [address] Oct, [facility] [address] [facility] [id number] [place] [address] Oct, [facility] [address] [id number] [place] [address] Oct, [facility] [address] [facility] [id number] [place] [address] Oct, [facility] [address] [id number] [place] [address] Oct, [facility] [address] [id number] [place] [address] Oct, [facility] [address] [id number] [place] [address] Sep, [facility] [address] [id number] [place] [address] Sep, [facility] [address] [id number] [place] [address] Sep, [facility] [address] [facility] [id number] [place] [address] Sep, [facility] [address] [id number] [place] [address] Sep, [facility] [address] [id number] [place] [address] Jul, [facility] [address] [id number] [place] [address] Jul, [facility] [address] [id number] [place] [address] Jul, [facility] [address] [id number] [place] [address] Jul, [facility] [address] [id number] [place] [address] Jul, [facility] [address] [id number] [place] [address] Jul, [facility] [address] [id number] [place] [address] Jul, [facility] [address] [id number] [place] [address] Jul, [facility] [address] [id number] [place] [address] Jul, [facility] [address] [id number] [place] [address] Jul, [facility] [address] [id number] [place] [address] Jul, [facility] [address] [facility] [id number] [place] [address] Jul, [facility] [address] [facility] [id number] [facility] [place] [address] Jun, [facility] [address] [id number] [place] [address] Jun, [facility] [address] [id number] [place] [address] Jun, [facility] [address] [facility] [id number] [place] [address] Jun, [facility] [address] [id number] [place] [address] Jun, [facility] [address] [id number] [place] [address] Jun, [facility] [address] [id number] [place] [address] Jun, [facility] [address] [id number] [place] [address] Jun, [facility] [address] [id number] [place] [address] May, [facility] [address] [id number] [place] [address] May, [facility] [address] [id number] [place] [address] May, [facility] [address] [id number] [place] [address] May, [facility] [address] [id number] [place] [address] May, [facility] [address] [id number] [place] [address] May, [facility] [address] [id number] [place] [address] 18 May, 2013 [facility] [address] [id number] [place] [address] May, [facility] [address] [id number] [place] [address] Apr, [facility] [address] [id number] [place] [address] Apr, [facility] [address] [id number] [place] [address] Apr, [facility] [address] [id number] [place] [address] Apr, [facility] [address] [id number] [place] [address] Mar, [facility] [address] [id number] [place] [address] Mar, [facility] [address] [id number] [place] [address] Mar, [facility] [address] [id number] [place] [address] Feb, [facility] [address] [id number] [place] [address] Feb, [facility] [address] [id number] [place] [address] Feb, [facility] [address] [id number] [place] [address] Feb, [facility] [address] [id number] [place] [address] Feb, [facility] [address] [id number] [place] [address] Feb, [facility] [address] [id number] [place] [address] Jan, [facility] [address] [id number] [place] [address] Jan, [facility] [address] [id number] [place] [address] Jan, [facility] [address] [id number] [place] [address] Jan, [facility] [address] [id number] [place] [address] Jan, [facility] [address] [id number] [place] [address] Jan, [facility] [address] [id number] [place] [address] Jan, [facility] [address] [facility] [id number] [place] [address] Dec, [facility] [address] [id number] [place] [address] Dec, [facility] [address] [id number] [place] [address] Dec, [facility] [address] [id number] [place] [address] Dec, [facility] [address] [id number] [place] [address] Nov, [facility] [address] [id number] [place] [address] Nov, [facility] [address] [id number] [place] [address] Nov, [facility] [address] [id number] [place] [address] Nov, [facility] [address] [id number] [place] [address] Nov, [facility] [address] [id number] [place] [address] Nov, [facility] [address] [id number] [place] [address] Nov, [facility] [address] [id number] [place] [address] Oct, [facility] [address] [id number] [place] [address] Oct, [facility] [address] [facility] [id number] [place] [address] Oct, [facility] [address] [id number] [place] [address] Oct, [facility] [address] [id number] [place] [address] Oct, [facility] [address] [id number] [place] [address] Oct, [facility] [address] [id number] [place] [address] Oct, [facility] [address] [id number] [place] [address] Oct, [facility] [address] [id number] [place] [address] Sep, Suleiman PEREZ [address] [place] [address] [id number] [place] [id number] August, [facility] [address] [id number] [place] [address] August, [facility] [address] [id number] [place] [address] Jul, [facility] [address] [id number] [place] [address] Jul, [facility] [address] [id number] [place] [address] Jul, [facility] [address] [id number] [place] [address] Jul, [facility] [address] [id number] [place] [address] Jul, [facility] [address] [id number] [place] [address] Jul, [facility] [address] [id number] [place] [address] Jul, [facility] [address] [id number] [place] [address] Jun, [facility] [address] [id number] [place] [address] Jun, [facility] [address] [id number] [place] [address] Jun, [facility] [address] [id number] [place] [address] Jun, [facility] [address] [id number] [place] [address] Jun, [facility] [address] [id number] [place] [address] May, [facility] [address] [id number] [place] [address] May, [facility] [address] [id number] [place] [address] May, [facility] [address] [id number] [place] [address] Apr, [facility] [address] [id number] [place] [address] 14 Apr, 2012 [facility] [address] [id number] [place] [address] Apr, [facility] [address] [id number] [place] [address] Mar, [facility] [address] [id number] [place] [address] Mar, [facility] [address] [id number] [place] [address] Mar, [facility] [address] [id number] [place] [address] Mar, [facility] [address] [id number] [place] [address] 10 Mar, 2012 [facility] [address] [id number] [place] [address] Mar, [facility] [address] [id number] [place] [address] Feb, [facility] [address] [id number] [place] [address] Feb, [facility] [address] [id number] [place] [address] Jan, [facility] [address] [id number] [place] [address] Jan, [facility] [address] [id number] [place] [address] Dec, [facility] [address] [id number] [place] [address] Nov, [facility] [address] [id number] [place] [address] Nov, [facility] [address] [id number] [place] [address] Nov, [facility] [address] [id number] [place] [address] Nov, [facility] [address] [id number] [place] [address] Oct, [facility] [address] [id number] [place] [address] Oct, [facility] [address] [id number] [place] [address] Oct, [facility] [address] [id number] [place] [address] Sep, [facility] [address] [id number] [place] [address] Sep, [facility] [address] [id number] [place] [address] Sep, [facility] [address] [id number] [place] [address] August, [facility] [address] [id number] [place] [address] August, [facility] [address] [id number] [place] [address] Jul, [facility] [address] [id number] [place] [address] 24 Jul, 2011 [facility] [address] [id number] [place] [address] Jul, [facility] [address] [id number] [place] [address] Jul, [facility] [address] [id number] [place] [address] Jun, [facility] [address] [id number] [place] [address] May, [facility] [address] [id number] [place] [address] Apr, [facility] [address] [id number] [place] [address] Apr, [facility] [address] [id number] [place] [address] Apr, [facility] [address] [id number] [place] [address] Apr, [facility] [address] [id number] [place] [address] Apr, [facility] [address] [id number] [place] [address] Apr, [facility] [address] [id number] [place] [address] Mar, [facility] [address] [id number] [place] [address] Mar, [facility] [address] [id number] [place] [address] Feb, [facility] [address] [id number] [place] [address] Feb, [facility] [address] [id number] [place] [address] 17 Feb, 2011 [facility] [address] [id number] [place] [address] Feb, [facility] [address] [id number] [place] [address] Jan, [facility] [address] [id number] [place] [address] Jan, [facility] [address] [id number] [place] [address] Jan, [facility] [address] [id number] [place] [address] Jan, [facility] [address] [id number] [place] [address] Nov, [facility] [id number] [place] [address] Mar, [facility] [address] [id number] [place] [address] Mar, [facility] [address] [id number] [place] [address] Feb, [facility] [address] [id number] [place] [address] Feb, [facility] [address] [id number] [place] [address] Jan, [facility] [address] [id number] [place] [address] Jan, [facility] [address] [id number] [place] [address] Sep, [facility] [address] [id number] [place] [address] 16 May, 2009 [facility] [address] [id number] [place] [address] Apr, [facility] [address] [id number] [place] [address] Mar, [facility] [address] [id number] [place] [address] Feb, [facility] [address] [id number] [place] [address] Feb, [facility] [address] [id number] [place] [address] Feb, [facility] [address] [id number] [place] [address] 22 Jan, 2009 [facility] [address] [id number] [place] [address] Jan, [facility] [address] [id number] [place] [address] 13 Jan, 2009 [facility] [address] [id number] [place] [address] Jan, [facility] [address] [id number] [place] [address] August, IMMUNIZATIONS No Known Immunizations SOCIAL HISTORY [...] age 6 Hospitalization History surgery Hospitalization History [facility], inpa tient treatment few times for BH
--- OUTSIDE RECORDS SUMMARY | 2019-09-29 10:38 | XMS REPORT ---
Author Author Cameron ALANIZ [facility] Address [address] [place] [address] Care Team Providers [facility] Custodian Name Role Phone JEET ALANIZ Unavailable PROBLEMS Type Condition ICD9-CM Code [id number] Code Onset Dates Condition S tatus SNOMED Code Problem Adjustment disorder, unspecified type F43.20 Active 95456444 Problem Reactive airway disease, unspecified asthma justin rity, uncomplicated J45.909 Active [id number] Problem Hypertensive retinopathy of both eyes H35.033 Active 3573576 Problem Open-angle glaucoma of both eyes, unspecified glaucoma stage, unspecified open-angle glaucoma type H40.10X0 Acti ve 78978805 Problem Essential hypertension I10 Active 57851669 Problem Obstructive sleep apnea G47.33 Active 57219962 Problem Intermittent explosive disorder F63.81 Active 31016290 Problem Type 2 diabetes mellitus with complication E11.8 Active 66675315 Problem Bipolar disorder, in partial remission, most rec ent episode manic F31.73 Active 12179649 Problem Intermittent explosive disorder in adult F63.81 Active 33661345 Problem Bipolar disorder, unspecified F31.9 Active 16302068 Problem Neuropathy G62.9 Active 335530406 Problem Diabetes E11.9 Active 31578983 Problem Other specified urinary incontinence N39.498 Active 227146059 Problem Depression F32.9 Active 33771655 Problem 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 Active 66431360 Problem Mild intellectual disability F70 A ctive 27410717 Problem Reactive airway disease, mild intermittent, uncomplicated J45.20 Active 049394329 Problem Gastroesophageal reflux disease without esophagitis K21.9 Active 392703932 Problem Other diabetic neurological complication associated with type 2 diabetes mellitus E11.49 Active 575559292 ALLERGIES No Information ENCOUNTERS Encounter Location Date Diagnosis [facility] [address] [id number] [place] [address] August, [facility] [address] [id number] [place] [address] Jul, [facility] [address] [address] Jul, [facility] [address] [facility] [id number] [address] [place] [address] Jun, Dysuria R30.0 [facility] [address] [address] Jun, [facility] [address] [address] May, Influenza J11.1 [place] [address] [address] 13 May, 2019 Intermittent explosive disorder in adult F63.81 [place] [address] [address] May, [facility] [address] [address] Apr, Intermittent explosive disorder in adult F63.81 ; Bipolar disorder, unspecified F31.9 and Mild intellectual disability F70 [facility] [address] [address] [id number] [address] Apr, Oral health maintenance stat us requiring routine preventive dental care K08.9 [place] [address] [address] Apr, Type 2 diabetes mellitus with complicati on E11.8 ; History of test for hearing Z92.89 ; Colon cancer screening Z12.11 ; Other specified urinary incontinence N39.498 and Impacted cerumen, right ear H61.21 [place] [id number] [place] [address] Apr, Onychomycosis B35.1 ; Other diabetic luc rological complication associated with type 2 diabetes mellitus E11.49 and Tinea pedis of both feet B35.3 [place] [id number] [place] [address] Feb, [facility] [id number] [place] [address] Jan, [facility] [id number] [place] [address] Jan, [facility] [id number] [place] [address] Jan, [facility] [id number] [place] [address] Jan, [facility] [id number] [place] [address] Jan, [facility] [id number] [place] [address] Jan, [facility] [id number] [place] [address] Jan, [facility] [id number] [place] [address] Jan, Anemia D64.9 [facility] [address] [facility] [address] [id number] [place] [address] Jan, Dental examination Z01.20 an d Oral health maintenance status requiring routine preventive dental care K08.9 [facility] [id number] [place] [address] Jan, Onychomycosis B35.1 and Other diabetic n eurological complication associated with type 2 diabetes mellitus E11.49 [facility] [id number] [place] [address] Jan, Anemia D64.9 [facility] [id number] [place] [address] Jan, [facility] [id number] [place] [address] Dec, Urinary tract infection without hematuri a, site unspecified N39.0 [facility] [address] [address] 30 Dec, 2018 Type 2 diabetes mellitus with complicati on E11.8 ; Urinary tract infection without hematuria, site unspecified N39.0 ; Impacted cerumen of both ears H61.23 ; Encounter for immunization Z23 and Hyponatremia E87.1 [facility] [address] [address] 30 Dec, 2018 Intermittent explosive disorder in adult F63.81 ; Dysuria R30.0 ; Type 2 diabetes mellitus with complication E11.8 ; Bipolar disorder, unspecified F31.9 and Mild intellectual disability F70 [place] [address] [address] Dec, Dysuria R30.0 [place] [address] [address] 24 Dec, 2018 Intermittent explosive disorder in adult F63.81 ; Bipolar disorder, unspecified F31.9 and Mild intellectual disability F70 [place] [address] [address] Nov, [address] [address] Oct, [facility] [address] [address] [id number] [place] [address] Oct, Oral health maintenance stat us requiring routine preventive dental care K08.[address] [address] August, Intermittent explosive disorder in adult F63.81 ; Bipolar disorder, unspecified F31.9 and Mild intellectual disability F70 [facility] [address] [facility] [id number] [place] [id number] August, Dental caries K02.9 [facility] [address] [address] Jul, Onychomycosis B35.1 ; Other diabetic luc rological complication associated with type 2 diabetes mellitus E11.49 and Tinea pedis of both feet B35.3 [facility] [address] [id number] [place] [id number] Jul, Caries K02.9 [place] [address] [address] Jul, Type 2 diabetes mellitus with complicati on E11.8 ; Tobacco abuse Z72.0 and Bipolar disorder, unspecified F31.9 [place] [address] [address] Jun, [facility] [address] [id number] Jun, Dental examination Z01.20 and Oral healt h maintenance status requiring routine preventive dental care K08.9 [place] [address] [address] May, Bilateral impacted cerumen H61.23 [place] [address] [address] Apr, Bipolar disorder, unspecified F31.9 ; In termittent explosive disorder in adult F63.81 ; Type 2 diabetes mellitus with complication E11.8 ; Tobacco abuse Z72.0 and Colon cancer screening Z12.11 [place] [address] [address] Apr, Onychomycosis B35.1 and Other diabetic n eurological complication associated with type 2 diabetes mellitus E11.49 [place] [address] [address] Apr, Intermittent explosive disorder in adult F63.81 ; Bipolar disorder, unspecified F31.9 and Mild intellectual disability F70 [place] [address] [address] Mar, Diabetes E11.9 [facility] [address] [facility] [id number] [address] [place] [address] Jan, Encounter for immunization Z 23 [place] [address] [address] Jan, Tinea pedis of both feet B35.3 ; Other d iabetic neurological complication associated with type 2 diabetes mellitus E11.49 and Onychomycosis B35.1 [place] [address] [address] Nov, Type 2 diabetes mellitus with complicati on E11.8 [place] [address] [address] Nov, [place] [address] [address] Oct, Intermittent explosive disorder in adult F63.81 ; Bipolar disorder, unspecified F31.9 and Mild intellectual disability F70 [place] [address] [address] Oct, [facility] [address] [id number] Oct, Dental examination Z01.20 [place] [address] [address] Oct, Onychomycosis B35.1 and Other diabetic n eurological complication associated with type 2 diabetes mellitus E11.49 [place] [address] [address] Sep, Type 2 diabetes mellitus with complicati on E11.8 and Colon cancer screening Z12.11 [place] [address] [address] Sep, Type 2 diabetes mellitus with complicati on E11.8 ; Colon cancer screening Z12.11 and Neuropathy G62.9 [place] [address] [address] August, Diabetes E11.9 [facility] [address] [id number] Jul, Dental examination Z01.20 [place] [address] [address] May, Mild intellectual disability F70 [place] [address] [address] 07 May, 2017 Mild intellectual disability F70 ; High risk medication use Z79.899 ; Intermittent explosive disorder in adult F63.81 and Bipolar disorder, unspecified F31.9 [facility] [address] [address] May, [facility] [address] [address] May, [facility] [address] [address] Apr, Type 2 diabetes mellitus with complicati on E11.8 ; Mild intellectual disability F70 ; Gastroesophageal reflux disease without esophagitis K21.9 ; Reactive airway disease, mild intermittent, uncomplicated J45.20 and Tobacco abuse Z72.0 [place] [address] [address] Apr, High risk medication use Z79.899 ; Mild intellectual disability F70 ; Intermittent explosive disorder in adult F63.81 and Bipolar disorder, unspecified F31.9 [facility] [address] [id number] Mar, Encounter for dental exam and cleaning w /o abnormal findings Z01.20 [facility] [address] [id number] Mar, Dental examination Z01.20 [facility] [address] [address] 12 Jan, 2017 [facility] [address] [address] Jan, [facility] [address] [address] Jan, Mild intellectual disability F70 ; Bipol ar disorder, unspecified F31.9 and Intermittent explosive disorder in adult F63.81 [facility] [address] [address] Jan, Diabetes E11.9 [facility] [address] [id number] 13 Dec, 2016 Encounter for dental examination and osei aning without abnormal findings Z01.20 [facility] [address] [address] 12 Dec, 2016 Bipolar disorder, unspecified F31.9 ; In termittent explosive disorder in adult F63.81 and Mild intellectual disability F70 [facility] [address] [address] Nov, Diabetes E11.9 [facility] [address] [address] Nov, [facility] [address] [address] Nov, Diabetes E11.9 and Colon cancer screenin g Z12.[address] [facility] [id number] [employer] [place] [id number] Sep, Dental examination Z01.20 [facility] [address] [id number] Sep, Encounter for dental examination and osei aning without abnormal findings Z01.20 [facility] [address] [address] Sep, Bipolar disorder, unspecified F31.9 [facility] [address] [address] Sep, Bipolar disorder, unspecified F31.9 [facility] [address] [address] Jul, [facility] [address] [address] Jul, Type 2 diabetes mellitus with complicati on E11.8 [facility] [address] [id number] Jun, Encounter for dental examination and osei aning without abnormal findings Z01.20 [facility] [address] [id number] [id number] Jun, Dental examination Z01.20 [facility] [address] [address] 18 Apr, 2016 Sports physical Z02.5 [facility] [address] [address] 14 Mar, 2016 Bipolar disorder, in partial remission, most recent episode manic F31.73 and Intermittent explosive disorder in adult F63.81 [facility] [address] [address] 08 Mar, 2016 [place] [address] [address] Mar, Diabetes E11.9 [facility] [address] [id number] Feb, Encounter for dental examination and osei aning without abnormal findings Z01.20 [place] [address] [address] 22 Dec, 2015 Nocturnal hypoxemia G47.34 and Encounter for immunization Z23 [place] [address] [address] 15 Dec, 2015 [place] [address] [address] Dec, [address] [address] Dec, Bipolar disorder, unspecified F31.9 [facility] [address] [id number] Oct, Encounter for dental examination and osei aning without abnormal findings Z01.20 [facility] [address] [id number] [place] [id number] Oct, Dental examination Z01.20 [facility] [address] [address] Oct, Diabetes E11.9 [facility] [address] [address] Oct, Diabetes E11.9 ; Reactive airway disease , mild intermittent, uncomplicated J45.20 and Tobacco abuse Z72.0 [place] [address] [address] Sep, Bipolar disorder, unspecified F31.9 and Depression F32.9 [place] [address] [address] Sep, [place] [address] [address] August, Tinea pedis of both feet B35.3 and DM w/ o complication type II, uncontrolled E11.65 [place] [address] [address] Jul, [place] [address] [address] Jul, [place] [address] [address] Jul, Obstructive sleep apnea G47.33 [place] [address] [address] Jun, Diabetes E11.9 [place] [address] [address] Jun, [place] [address] [address] Jun, [place] [address] [address] Jun, Bipolar disorder, unspecified F31.9 and Mental retardation F79 [place] [address] [address] Apr, [address] [address] Feb, Diabetes E11.9 ; Encounter for immunizat ion Z23 ; Cough R05 and Nicotine abuse Z72.0 [place] [address] [address] Jan, Bipolar disorder, unspecified F31.9 and Diabetes mellitus without mention of complication, type II or unspecified type, uncontrolled 250.02 [place] [address] [address] Jan, [facility] [address] [address] Dec, Reactive airway disease 493.90 and Enure sis 788.30 [place] [address] [address] Dec, [place] [address] [address] Nov, [place] [address] [address] Nov, [place] [address] [address] Nov, Annual physical exam V70.0 ; Urinary inc ontinence 788.30 ; Diabetes 250.00 and Hypertension 401.9 [place] [address] [address] Oct, Diabetes mellitus without mention of com plication, type II or unspecified type, uncontrolled 250.02 [place] [address] [address] Oct, Diabetes mellitus without mention of com plication, type II or unspecified type, uncontrolled 250.02 [place] [address] [address] Oct, Diabetes mellitus without mention of com plication, type II or unspecified type, uncontrolled 250.02 [place] [address] [address] Oct, [facility] [address] [address] Oct, [facility] [address] [address] Oct, Bipolar disorder, unspecified 296.80 [facility] [address] [id number] [place] [id number] Sep, Dental examination V72.2 [facility] [id number] [place] [address] August, [facility] [address] [id number] [place] [id number] August, Dental examination V72.2 [facility] [id number] [place] [address] August, [facility] [id number] [place] [address] Jul, [facility] [id number] [place] [address] Jul, [facility] [id number] [place] [address] Jun, [facility] [id number] [place] [address] Jun, [facility] [id number] [place] [address] Jun, [facility] [id number] [place] [address] Jun, [facility] [id number] [place] [address] May, [facility] [id number] [place] [address] May, [facility] [id number] [place] [address] May, [facility] [id number] [place] [address] May, [facility] [id number] [place] [address] May, [facility] [id number] [place] [address] May, [facility] [address] [id number] [place] [address] 16 May, 2014 [facility] [address] [id number] [place] [address] May, 2014 [facility] [address] [id number] [place] [address] May, 2014 [facility] [address] [id number] [place] [address] May, 2014 [facility] [address] [id number] [place] [address] May, 2014 [facility] [address] [id number] [place] [address] May, 2014 [facility] [address] [id number] [place] [address] May, 2014 [facility] [address] [id number] [place] [address] May, 2014 [facility] [address] [id number] [place] [address] May, 2014 [facility] [address] [id number] [place] [address] Apr, [facility] [address] [id number] [place] [address] Apr, [facility] [address] [id number] [place] [address] Apr, [facility] [address] [id number] [place] [address] Apr, [facility] [address] [id number] [place] [address] Apr, [facility] [address] [id number] [place] [address] Apr, [facility] [address] [id number] [place] [address] Apr, [facility] [address] [id number] [place] [address] Apr, [facility] [address] [facility] 2] [id number] [place] [address] Apr, [facility] [address] [id number] [place] [address] Apr, [facility] [address] [id number] [place] [address] Apr, [facility] [address] [id number] [place] [address] Apr, [facility] [address] [id number] [place] [address] Mar, [facility] [address] [id number] [place] [address] Mar, [facility] [address] [id number] [place] [address] Mar, [facility] [address] [id number] [place] [address] Mar, [facility] [address] [id number] [place] [address] Mar, [facility] [address] [id number] [place] [address] Mar, [facility] [address] [id number] [place] [address] Feb, [facility] [address] [id number] [place] [address] Feb, [facility] [address] [id number] [place] [address] Feb, [facility] [address] [id number] [place] [address] 13 Feb, 2014 [facility] [address] [id number] [place] [address] 14 Jan, 2014 [facility] [address] [id number] [place] [address] 14 Jan, 2014 [facility] [address] [place] [id number] [place] [address] 14 Jan, 2014 [facility] [address] [facility] 2] [id number] [place] [address] 14 Jan, 2014 [facility] [address] [facility] 2] [id number] [place] [address] Dec, [facility] [address] [facility] 2] [id number] [place] [address] Dec, [facility] [address] [facility] 2] [id number] [place] [address] 15 Dec, 2013 [facility] [address] [facility] 2] [id number] [place] [address] Dec, [facility] [address] [id number] [place] [address] Nov, [facility] [address] [id number] [place] [address] Nov, [facility] [address] [id number] [place] [address] Nov, [facility] [address] [id number] [place] [address] Nov, [facility] [address] [id number] [place] [address] Nov, [facility] [address] [id number] [place] [address] Nov, [facility] [address] [id number] [place] [address] Nov, [facility] [address] [facility] [place] [place] [id number] [place] [address] Oct, [facility] [address] [id number] [place] [address] Oct, [facility] [address] [id number] [place] [address] Oct, [facility] [address] [id number] [place] [address] Oct, [facility] [address] [id number] [place] [address] Oct, [facility] [address] [id number] [place] [address] Oct, [facility] [address] [facility] [place]NOTE [place] [id number] [place] [address] Oct, [facility] [address] [id number] [place] [address] Sep, [facility] [address] [facility] [place]NOTE 2[place] [id number] [place] [address] Sep, [facility] [address] [id number] [place] [address] Sep, [facility] [address] [facility] [id number] [place] [address] Sep, [facility] [address] [id number] [place] [address] Sep, [facility] [address] [id number] [place] [address] Jul, [facility] [address] [id number] [place] [address] Jul, [facility] [address] [id number] [place] [address] Jul, [facility] [address] [id number] [place] [address] Jul, [facility] [address] [id number] [place] [address] Jul, [facility] [address] [id number] [place] [address] Jul, [facility] [address] [id number] [place] [address] Jul, [facility] [address] [id number] [place] [address] Jul, [facility] [address] [id number] [place] [address] Jul, [facility] [address] [facility] [facility]] [id number] [facility] [address] Jul, [facility] [address] [facility] 2] [id number] [place] [address] Jul, [facility] [address] [id number] [place] [address] Jul, [facility] [address] [id number] [place] [address] Jun, [facility] [address] [facility] [place] 2] [id number] [place] [address] Jun, [facility] [address] [id number] [place] [address] Jun, [facility] [address] [id number] [place] [address] Jun, [facility] [address] [id number] [place] [address] Jun, [facility] [address] [id number] [place] [address] Jun, [facility] [address] [id number] [place] [address] Jun, [facility] [address] [id number] [place] [address] Jun, [facility] [address] [id number] [place] [address] May, [facility] [address] [facility] [place] 2] [id number] [place] [address] May, [facility] [address] [id number] [place] [address] May, [facility] [address] [id number] [place] [address] May, [facility] [address] [id number] [place] [address] May, [facility] [address] [facility] [place] 2] [id number] [place] [address] May, [facility] [address] [id number] [place] [address] May, [facility] [address] [id number] [place] [address] May, [facility] [address] [id number] [place] [address] Apr, [facility] [address] [facility] [place] 2] [id number] [place] [address] Apr, [facility] [address] [id number] [place] [address] Apr, [facility] [address] [id number] [place] [address] Apr, [facility] [address] [id number] [place] [address] Mar, [facility] [address] [id number] [place] [address] Mar, [facility] [address] [id number] [place] [address] Mar, [facility] [address] [id number] [place] [address] Feb, [facility] [address] [id number] [place] [address] Feb, [facility] [address] [id number] [place] [address] Feb, [facility] [address] [id number] [place] [address] Feb, [facility] [address] [id number] [place] [address] Feb, [facility] [address] [id number] [place] [address] Feb, [facility] [address] [id number] [place] [address] Jan, [facility] [address] [facility] [place] 2] [id number] [place] [address] Jan, [facility] [address] [facility] [place] 2] [id number] [place] [address] Jan, [facility] [address] [id number] [place] [address] Jan, [facility] [address] [id number] [facility] [address] Jan, [facility] [address] [facility] [place]NOTE 2] [id number] [place] [address] Jan, [facility] [address] [id number] [place] [address] Jan, [facility] [address] [id number] [place] [address] Dec, [facility] [address] [id number] [place] [address] 16 Dec, 2012 [facility] [address] [id number] [place] [address] Dec, [facility] [address] [id number] [place] [address] Dec, [facility] [address] [id number] [place] [address] Nov, [facility] [address] [id number] [place] [address] Nov, [facility] [address] [id number] [place] [address] Nov, [facility] [address] [id number] [place] [address] Nov, [facility] [address] [id number] [place] [address] Nov, [facility] [address] [id number] [place] [address] Nov, [facility] [address] [id number] [place] [address] Nov, [facility] [address] [id number] [place] [address] Oct, [facility] [address] [id number] [place] [address] Oct, [facility] [address] [id number] [place] [address] Oct, [facility] [address] [id number] [place] [address] Oct, [facility] [address] [id number] [place] [address] Oct, [facility] [address] [id number] [place] [address] Oct, [facility] [address] [id number] [place] [address] Oct, [facility] [address] [id number] [place] [address] Oct, [facility] [address] [id number] [place] [address] Sep, Suleiman PEREZ [address] [facility] [id number] [facility] [place] [id number] August, [facility] [address] [id number] [place] [address] August, [facility] [address] [id number] [place] [address] Jul, [facility] [address] [id number] [place] [address] Jul, [facility] [address] [id number] [place] [address] Jul, [facility] [address] [id number] [place] [address] Jul, [facility] [address] [id number] [place] [address] 18 Jul, 2012 [facility] [address] [facility] [place] 2] [id number] [place] [address] 17 Jul, 2012 [facility] [address] [facility] [place] 2] [id number] [place] [address] 16 Jul, 2012 [facility] [address] [id number] [place] [address] 21 Jun, 2012 [facility] [address] [id number] [place] [address] 18 Jun, 2012 [facility] [address] [facility]NOTE 2] [id number] [place] [address] 11 Jun, 2012 [facility] [address] [id number] [place] [address] 04 Jun, 2012 [facility] [address] [id number] [place] [address] 04 Jun, 2012 [facility] [address] [id number] [place] [address] 19 May, 2012 [facility] [address] [id number] [place] [address] 18 May, 2012 [facility] [address] [id number] [place] [address] 04 May, 2012 [facility] [address] [id number] [place] [address] 15 Apr, 2012 [facility] [address] [id number] [place] [address] 14 Apr, 2012 [facility] [address] [id number] [place] [address] 07 Apr, 2012 [facility] [address] [id number] [place] [address] Mar, [facility] [address] [id number] [place] [address] Mar, [facility] [address] [id number] [place] [address] Mar, [facility] [address] [id number] [place] [address] 13 Mar, 2012 [facility] [address] [id number] [place] [address] Mar, [facility] [address] [id number] [place] [address] Mar, [facility] [address] [id number] [place] [address] Feb, [facility] [address] [id number] [place] [address] Feb, [facility] [address] [id number] [place] [address] Jan, [facility] [address] [id number] [place] [address] Jan, [facility] [address] [id number] [place] [address] Dec, [facility] [id number] [place] [address] Nov, [facility] [address] [id number] [place] [address] Nov, [facility] [address] [id number] [place] [address] Nov, [facility] [address] [id number] [place] [address] Nov, [facility] [address] [id number] [place] [address] Oct, [facility] [address] [id number] [place] [address] Oct, [facility] [id number] [place] [address] Oct, [facility] [address] [id number] [place] [address] Sep, [facility] [address] [id number] [place] [address] Sep, [facility] [address] [id number] [place] [address] Sep, [facility] [address] [id number] [place] [address] August, [facility] [address] [id number] [place] [address] August, [facility] [address] [id number] [place] [address] Jul, [facility] [address] [id number] [place] [address] Jul, [facility] [address] [id number] [place] [address] Jul, [facility] [address] [id number] [place] [address] Jul, [facility] [address] [id number] [place] [address] Jun, [facility] [address] [id number] [place] [address] May, [facility] [address] [id number] [place] [address] Apr, [facility] [address] [id number] [place] [address] Apr, [facility] [address] [id number] [place] [address] Apr, [facility] [address] [id number] [place] [address] Apr, [facility] [address] [id number] [place] [address] Apr, [facility] [address] [id number] [place] [address] Apr, [facility] [address] [id number] [place] [address] Mar, [facility] [address] [id number] [place] [address] Mar, [facility] [address] [id number] [place] [address] Feb, [facility] [address] [id number] [place] [address] Feb, [facility] [address] [id number] [place] [address] 17 Feb, 2011 [facility] [address] [id number] [place] [address] Feb, [facility] [address] [id number] [place] [address] Jan, [facility] [address] [id number] [place] [address] Jan, [facility] [address] [id number] [place] [address] Jan, [facility] [address] [id number] [place] [address] Jan, [facility] [address] [id number] [place] [address] Nov, [facility] [address] [id number] [place] [address] Mar, [facility] [address] [id number] [place] [address] Mar, [facility] [address] [id number] [place] [address] 30 Feb, 2010 [facility] [address] [id number] [place] [address] 15 Feb, 2010 [facility] [address] [id number] [place] [address] Jan, [facility] [address] [id number] [place] [address] Jan, [facility] [address] [id number] [place] [address] Sep, [facility] [address] [id number] [place] [address] 16 May, 2009 [facility] [address] [id number] [place] [address] Apr, [facility] [address] [id number] [place] [address] Mar, [facility] [id number] [place] [address] Feb, [facility] [id number] [place] [address] Feb, [facility] [id number] [place] [address] Feb, [facility] [address] [id number] [place] [address] Jan, [facility] [id number] [place] [address] Jan, [facility] [id number] [place] [address] Jan, [facility] [address] [id number] [place] [address] Jan, [facility] [address] [id number] [place] [address] August, IMMUNIZATIONS No Known Immunizations SOCIAL HISTORY [...] age 6 Hospitalization History surgery Hospitalization History [facility], inde tient treatment few times for BH
--- OUTSIDE RECORDS SUMMARY | 2019-09-29 10:39 | XMS REPORT ---
Author Author Cameron MERCEDES Organization [facility] Address [address] [place] [address] Care Team Providers Care Solution Maker Name Role Phone ANGEL MERCEDES Unavailable PROBLEMS Type Condition ICD9-CM Code RNU18-OI Code Onset Dates Condition S tatus SNOMED Code Problem Adjustment disorder, unspecified type F43.20 Active 12680361 Problem Reactive airway disease, unspecified asthma justin rity, uncomplicated J45.909 Active 574659356172 Problem Hypertensive retinopathy of both eyes H35.033 Active 3957387 Problem Open-angle glaucoma of both eyes, unspecified glaucoma stage, unspecified open-angle glaucoma type H40.10X0 Acti ve 41575255 Problem Essential hypertension I10 Active 01837948 Problem Obstructive sleep apnea G47.33 Active 02447857 Problem Intermittent explosive disorder F63.81 Active 70382644 Problem Type 2 diabetes mellitus with complication E11.8 Active 75064358 Problem Bipolar disorder, in partial remission, most rec ent episode manic F31.73 Active 29165770 Problem Intermittent explosive disorder in adult F63.81 Active 53552590 Problem Bipolar disorder, unspecified F31.9 Active 09242317 Problem Neuropathy G62.9 Active 812586217 Problem Diabetes E11.9 Active 68263362 Problem Other specified urinary incontinence N39.498 Active 309565857 Problem Depression F32.9 Active 57782465 Problem 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 Active 17871865 Problem Mild intellectual disability F70 A ctive 82382616 Problem Reactive airway disease, mild intermittent, uncomplicated J45.20 Active 045792258 Problem Gastroesophageal reflux disease without esophagitis K21.9 Active 517235584 Problem Other diabetic neurological complication associated with type 2 diabetes mellitus E11.49 Active 789438043 ALLERGIES No Information ENCOUNTERS Encounter Location Date Diagnosis [facility] [address] [id number] [place] [address] August, [facility] [id number] [place] [address] Jul, [facility] [address] [address] Jul, [facility] [id number] [place] [address] Jun, [facility] [address] [address] May, Influenza J11.1 [facility] [address] [address] 13 May, 2019 Intermittent explosive disorder in adult F63.81 [place] [address] [address] May, [facility] [address] [address] Apr, Intermittent explosive disorder in adult F63.81 ; Bipolar disorder, unspecified F31.9 and Mild intellectual disability F70 [facility] [address] [facility] [id number] [place] [address] Apr, Oral health maintenance stat us requiring routine preventive dental care K08.9 [facility] [address] [address] Apr, Type 2 diabetes mellitus with complicati on E11.8 ; History of test for hearing Z92.89 ; Colon cancer screening Z12.11 ; Other specified urinary incontinence N39.498 and Impacted cerumen, right ear H61.21 [facility] [id number] [place] [address] Apr, Onychomycosis B35.1 ; Other diabetic luc rological complication associated with type 2 diabetes mellitus E11.49 and Tinea pedis of both feet B35.3 [facility] [id number] [place] [address] 14 Feb, 2019 [facility] [address] [address] Jan, [facility] [id number] [place] [address] Jan, [facility] [id number] [place] [address] Jan, [facility] [id number] [place] [address] Jan, [facility] [id number] [place] [address] Jan, [facility] [id number] [place] [address] Jan, [facility] [id number] [place] [address] Jan, [facility] [id number] [place] [address] Jan, Anemia D64.9 [facility] [address] [facility] [address] [id number] [address] Jan, Dental examination Z01.20 an d Oral health maintenance status requiring routine preventive dental care K08.9 [facility] [address] [address] Jan, Onychomycosis B35.1 and Other diabetic n eurological complication associated with type 2 diabetes mellitus E11.49 [facility] [address] [address] Jan, Anemia D64.9 [facility] [id number] [place] [address] Jan, [facility] [address] [address] Dec, Urinary tract infection without hematuri a, site unspecified N39.0 [facility] [id number] [place] [address] Dec, Type 2 diabetes mellitus with complicati on E11.8 ; Urinary tract infection without hematuria, site unspecified N39.0 ; Impacted cerumen of both ears H61.23 ; Encounter for immunization Z23 and Hyponatremia E87.1 [facility] [address] [address] Dec, Intermittent explosive disorder in adult F63.81 ; Dysuria R30.0 ; Type 2 diabetes mellitus with complication E11.8 ; Bipolar disorder, unspecified F31.9 and Mild intellectual disability F70 [facility] [address] [address] Dec, Dysuria R30.0 [place] [address] [address] Dec, Intermittent explosive disorder in adult F63.81 ; Bipolar disorder, unspecified F31.9 and Mild intellectual disability F70 [place] [address] [address] Nov, [place] [address] [address] Oct, [facility] [id number] [place] [address] Oct, Oral health maintenance stat us requiring routine preventive dental care K08.[address] [address] August, Intermittent explosive disorder in adult F63.81 ; Bipolar disorder, unspecified F31.9 and Mild intellectual disability F70 [facility] [address] [id number] August, Dental caries K02.9 [facility] [address] [address] Jul, Onychomycosis B35.1 ; Other diabetic luc rological complication associated with type 2 diabetes mellitus E11.49 and Tinea pedis of both feet B35.3 [facility] [address] [id number] Jul, Caries K02.9 [facility] [address] [address] [place] [address] 15 Jul, 2018 Type 2 diabetes mellitus with complicati on E11.8 ; Tobacco abuse Z72.0 and Bipolar disorder, unspecified F31.9 [facility] [id number] [place] [address] Jun, [facility] [address] [id number] [place] [id number] Jun, Dental examination Z01.20 and Oral healt h maintenance status requiring routine preventive dental care K08.9 [place] [address] [address] 11 May, 2018 Bilateral impacted cerumen H61.23 [place] [id number] [place] [address] Apr, Bipolar disorder, unspecified F31.9 ; In termittent explosive disorder in adult F63.81 ; Type 2 diabetes mellitus with complication E11.8 ; Tobacco abuse Z72.0 and Colon cancer screening Z12.11 [place] [id number] [place] [address] Apr, Onychomycosis B35.1 and Other diabetic n eurological complication associated with type 2 diabetes mellitus E11.49 [place] [address] [address] Apr, Intermittent explosive disorder in adult F63.81 ; Bipolar disorder, unspecified F31.9 and Mild intellectual disability F70 [place] [id number] [place] [address] Mar, Diabetes E11.9 [facility] [address] [id number] [address] [place] [address] Jan, Encounter for immunization Z 23 [place] [address] [address] Jan, Tinea pedis of both feet B35.3 ; Other d iabetic neurological complication associated with type 2 diabetes mellitus E11.49 and Onychomycosis B35.1 [place] [address] [address] Nov, Type 2 diabetes mellitus with complicati on E11.8 [place] [address] [address] Nov, [place] [address] [address] Oct, Intermittent explosive disorder in adult F63.81 ; Bipolar disorder, unspecified F31.9 and Mild intellectual disability F70 [place] [address] [address] Oct, [facility] [address] [id number] Oct, Dental examination Z01.20 [place] [address] [address] Oct, Onychomycosis B35.1 and Other diabetic n eurological complication associated with type 2 diabetes mellitus E11.49 [place] [address] [address] Sep, Type 2 diabetes mellitus with complicati on E11.8 and Colon cancer screening Z12.11 [place] [address] [address] Sep, Type 2 diabetes mellitus with complicati on E11.8 ; Colon cancer screening Z12.11 and Neuropathy G62.9 [place] [address] [address] August, Diabetes E11.9 [facility] [address] [id number] Jul, Dental examination Z01.20 [place] [address] [address] May, Mild intellectual disability F70 [place] [address] [address] May, Mild intellectual disability F70 ; High risk medication use Z79.899 ; Intermittent explosive disorder in adult F63.81 and Bipolar disorder, unspecified F31.9 [facility] [address] [address] May, [facility] [address] [address] May, [facility] [address] [address] Apr, Type 2 diabetes mellitus with complicati on E11.8 ; Mild intellectual disability F70 ; Gastroesophageal reflux disease without esophagitis K21.9 ; Reactive airway disease, mild intermittent, uncomplicated J45.20 and Tobacco abuse Z72.0 [facility] [address] [address] Apr, High risk medication use Z79.899 ; Mild intellectual disability F70 ; Intermittent explosive disorder in adult F63.81 and Bipolar disorder, unspecified F31.9 [facility] [address] [id number] Mar, Encounter for dental exam and cleaning w /o abnormal findings Z01.20 [facility] [address] [id number] Mar, Dental examination Z01.20 [facility] [address] [address] 12 Jan, 2017 [facility] [address] [address] Jan, [facility] [address] [address] Jan, Mild intellectual disability F70 ; Bipol ar disorder, unspecified F31.9 and Intermittent explosive disorder in adult F63.81 [facility] [address] [address] 02 Jan, 2017 Diabetes E11.9 [facility] [address] [id number] Dec, Encounter for dental examination and osei aning without abnormal findings Z01.20 [facility] [address] [address] 12 Dec, 2016 Bipolar disorder, unspecified F31.9 ; In termittent explosive disorder in adult F63.81 and Mild intellectual disability F70 [facility] [address] [address] Nov, Diabetes E11.9 [facility] [address] [address] Nov, [facility] [address] [address] Nov, Diabetes E11.9 and Colon cancer screenin g Z12.11 [facility] [id number] [place] [id number] Sep, Dental examination Z01.20 [facility] [address] [id number] Sep, Encounter for dental examination and osei aning without abnormal findings Z01.20 [facility] [address] [address] 13 Sep, 2016 Bipolar disorder, unspecified F31.9 [place] [address] [address] Sep, Bipolar disorder, unspecified F31.9 [facility] [address] [address] Jul, [facility] [address] [address] Jul, Type 2 diabetes mellitus with complicati on E11.8 [facility] [address] [id number] Jun, Encounter for dental examination and osei aning without abnormal findings Z01.20 [facility] [address] [id number] [facility] [id number] Jun, Dental examination Z01.20 [facility] [address] [address] Apr, Sports physical Z02.5 [facility] [address] [address] 14 Mar, 2016 Bipolar disorder, in partial remission, most recent episode manic F31.73 and Intermittent explosive disorder in adult F63.81 [facility] [address] [address] 08 Mar, 2016 [facility] [address] [address] 06 Mar, 2016 Diabetes E11.9 [facility] [address] [id number] Feb, Encounter for dental examination and osei aning without abnormal findings Z01.20 [place] [address] [address] 22 Dec, 2015 Nocturnal hypoxemia G47.34 and Encounter for immunization Z23 [address] [address] 15 Dec, 2015 [place] [address] [address] Dec, [address] [address] Dec, Bipolar disorder, unspecified F31.9 [facility] [id number] [place] [id number] Oct, Encounter for dental examination and osei aning without abnormal findings Z01.20 [facility] [address] [id number] [id number] Oct, Dental examination Z01.20 [facility] [address] [place] [address] 07 Oct, 2015 Diabetes E11.[address] [address] 05 Oct, 2015 Diabetes E11.9 ; Reactive airway disease , mild intermittent, uncomplicated J45.20 and Tobacco abuse Z72.[address] [address] Sep, Bipolar disorder, unspecified F31.9 and Depression F32.9 [place] [address] [address] Sep, [place] [address] [address] August, Tinea pedis of both feet B35.3 and DM w/ o complication type II, uncontrolled E11.65 [place] [address] [address] Jul, [place] [address] [address] Jul, [place] [address] [address] Jul, Obstructive sleep apnea G47.33 [place] [address] [address] Jun, Diabetes E11.9 [place] [address] [address] Jun, [place] [address] [address] Jun, [place] [address] [address] Jun, Bipolar disorder, unspecified F31.9 and Mental retardation F79 [place] [address] [address] Apr, [place] [address] [address] Feb, Diabetes E11.9 ; Encounter for immunizat ion Z23 ; Cough R05 and Nicotine abuse Z72.0 [place] [address] [address] Jan, Bipolar disorder, unspecified F31.9 and Diabetes mellitus without mention of complication, type II or unspecified type, uncontrolled 250.02 [place] [address] [place] [address] Jan, [facility] [address] [address] Dec, Reactive airway disease 493.90 and Enure sis 788.30 [facility] [id number] [place] [address] Dec, [facility] [address] [address] Nov, [facility] [address] [address] Nov, [facility] [address] [address] Nov, Annual physical exam V70.0 ; Urinary inc ontinence 788.30 ; Diabetes 250.00 and Hypertension 401.9 [place] [address] [address] Oct, Diabetes mellitus without mention of com plication, type II or unspecified type, uncontrolled 250.02 [facility] [address] [address] Oct, Diabetes mellitus without mention of com plication, type II or unspecified type, uncontrolled 250.02 [facility] [address] [address] Oct, Diabetes mellitus without mention of com plication, type II or unspecified type, uncontrolled 250.02 [facility] [id number] [place] [address] Oct, [facility] [address] [address] Oct, [facility] [id number] [place] [address] Oct, Bipolar disorder, unspecified 296.80 [facility] [address] [id number] [place] [id number] Sep, Dental examination V72.2 [place] [address] [id number] [place] [address] August, [facility] [address] [id number] [place] [id number] August, Dental examination V72.2 [facility] [address] [id number] [place] [address] August, [facility] [address] [id number] [place] [address] 14 Jul, 2014 [facility] [address] [id number] [place] [address] Jul, [facility] [address] [id number] [place] [address] Jun, [facility] [address] [id number] [place] [address] Jun, [facility] [id number] [place] [address] Jun, [facility] [address] [id number] [place] [address] Jun, [facility] [address] [id number] [place] [address] May, [facility] [address] [id number] [place] [address] 23 May, 2014 [facility] [address] [id number] [place] [address] 16 May, 2014 [facility] [address] [id number] [place] [address] May, 2014 [facility] [address] [id number] [place] [address] May, [facility] [address] [id number] [place] [address] 16 May, 2014 [facility] [address] [id number] [place] [address] 16 May, 2014 [facility] [address] [id number] [place] [address] May, 2014 [facility] [address] [id number] [place] [address] May, [facility] [address] [id number] [place] [address] May, 2014 [facility] [address] [id number] [place] [address] May, [facility] [address] [id number] [place] [address] May, 2014 [facility] [address] [id number] [place] [address] May, [facility] [address] [id number] [place] [address] May, [facility] [address] [id number] [place] [address] May, [facility] [address] [id number] [place] [address] Apr, [facility] [address] [id number] [place] [address] Apr, [facility] [address] [id number] [place] [address] Apr, [facility] [address] [id number] [place] [address] Apr, [facility] [address] [id number] [place] [address] Apr, [facility] [address] [id number] [place] [address] Apr, [facility] [address] [id number] [place] [address] Apr, [facility] [address] [id number] [place] [address] Apr, [facility] [address] [id number] [place] [address] Apr, [facility] [address] [id number] [place] [address] Apr, [facility] [address] [id number] [place] [address] Apr, [facility] [address] [id number] [place] [address] Apr, [facility] [address] [id number] [place] [address] Mar, [facility] [address] [id number] [place] [address] Mar, [facility] [address] [id number] [place] [address] Mar, [facility] [address] [id number] [place] [address] Mar, [facility] [address] [id number] [place] [address] Mar, [facility] [address] [id number] [place] [address] Mar, [facility] [address] [id number] [place] [address] Feb, [facility] [address] [id number] [place] [address] Feb, [facility] [address] [id number] [place] [address] Feb, [facility] [address] [id number] [place] [address] Feb, [facility] [address] [id number] [place] [address] 14 Jan, 2014 [facility] [address] [id number] [place] [address] 14 Jan, 2014 [facility] [address] [id number] [place] [address] 14 Jan, 2014 [facility] [address] [id number] [place] [address] Jan, [facility] [address] [id number] [facility] [address] Dec, [facility] [address] [id number] [facility] [place] [address] Dec, [facility] [address] [id number] [facility] [place] [address] Dec, [facility] [address] [id number] [facility] [place] [address] Dec, [facility] [address] [id number] [place] [address] Nov, [facility] [address] [id number] [place] [address] Nov, [facility] [address] [id number] [place] [address] Nov, [facility] [address] [id number] [place] [address] Nov, [facility] [address] [id number] [place] [address] Nov, [facility] [address] [id number] [place] [address] Nov, [facility] [address] [id number] [place] [address] Nov, [facility] [address] [id number] [place] [address] Oct, [facility] [address] [id number] [place] [address] Oct, [facility] [address] [id number] [place] [address] Oct, [facility] [address] [id number] [place] [address] Oct, [facility] [address] [id number] [place] [address] Oct, [facility] [address] [id number] [facility] [place] [address] Oct, [facility] [address] [id number] [place] [address] Oct, [facility] [address] [id number] [place] [address] Sep, [facility] [address] [id number] [place] [address] Sep, [facility] [address] [id number] [place] [address] Sep, [facility] [address] [id number] [place] [address] Sep, [facility] [address] [id number] [place] [address] Sep, [facility] [address] [id number] [place] [address] Jul, [facility] [address] [id number] [place] [address] Jul, [facility] [address] [id number] [place] [address] Jul, [facility] [address] [id number] [place] [address] Jul, [facility] [address] [id number] [place] [address] Jul, [facility] [address] [id number] [place] [address] Jul, [facility] [address] [id number] [place] [address] Jul, [facility] [address] [id number] [place] [address] Jul, [facility] [address] [id number] [place] [address] Jul, [facility] [address] [id number] [place] [address] Jul, [facility] [address] [id number] [place] [address] Jul, [facility] [address] [id number] [place] [address] Jul, [facility] [address] [id number] [place] [address] Jun, [facility] [address] [id number] [place] [address] Jun, [facility] [address] [id number] [place] [address] Jun, [facility] [address] [id number] [place] [address] Jun, [facility] [address] [id number] [place] [address] Jun, [facility] [address] [id number] [place] [address] Jun, [facility] [address] [id number] [place] [address] Jun, [facility] [address] [id number] [place] [address] Jun, [facility] [address] [id number] [place] [address] May, [facility] [address] [id number] [place] [address] May, [facility] [address] [id number] [place] [address] May, [facility] [address] [id number] [place] [address] May, [facility] [address] [id number] [place] [address] May, [facility] [address] [id number] [place] [address] May, [facility] [address] [id number] [place] [address] May, [facility] [address] [id number] [place] [address] May, [facility] [address] [id number] [place] [address] Apr, [facility] [address] [id number] [place] [address] Apr, [facility] [address] [id number] [place] [address] Apr, [facility] [address] [id number] [place] [address] Apr, [facility] [address] [id number] [place] [address] Mar, [facility] [address] [id number] [place] [address] Mar, [facility] [address] [id number] [place] [address] Mar, [facility] [address] [id number] [place] [address] Feb, [facility] [address] [id number] [place] [address] Feb, [facility] [address] [id number] [place] [address] Feb, [facility] [address] [id number] [place] [address] Feb, [facility] [address] [id number] [place] [address] Feb, [facility] [id number] [place] [address] Feb, [facility] [address] [id number] [place] [address] Jan, [facility] [address] [id number] [place] [address] Jan, [facility] [address] [id number] [place] [address] Jan, [facility] [address] [id number] [place] [address] Jan, [facility] [address] [id number] [place] [address] Jan, [facility] [address] [id number] [place] [address] Jan, [facility] [address] [id number] [place] [address] Jan, [facility] [address] [id number] [place] [address] Dec, [facility] [address] [id number] [place] [address] Dec, [facility] [address] [id number] [place] [address] Dec, [facility] [address] [id number] [place] [address] Dec, [facility] [address] [id number] [place] [address] Nov, [facility] [address] [id number] [place] [address] Nov, [facility] [address] [id number] [place] [address] Nov, [facility] [address] [id number] [place] [address] Nov, [facility] [address] [id number] [place] [address] Nov, [facility] [address] [id number] [place] [address] Nov, [facility] [address] [id number] [place] [address] Nov, [facility] [address] [id number] [place] [address] Oct, [facility] [address] [id number] [facility] [address] Oct, [facility] [address] [id number] [facility] [place] [address] Oct, [facility] [address] [id number] [facility] [place] [address] Oct, [facility] [address] [id number] [place] [address] Oct, [facility] [address] [id number] [facility] [place] [address] Oct, [facility] [address] [id number] [facility] [place] [address] Oct, [facility] [address] [id number] [place] [address] Oct, [facility] [address] [id number] [place] [address] Sep, Suleiman PEREZ [address] [facility] [id number] [facility] [place] [id number] August, [facility] [address] [id number] [place] [address] August, [facility] [address] [id number] [place] [address] Jul, [facility] [address] [id number] [place] [address] Jul, [facility] [address] [id number] [place] [address] Jul, [facility] [address] [id number] [place] [address] Jul, [facility] [address] [id number] [place] [address] Jul, [facility] [address] [id number] [place] [address] Jul, [facility] [address] [id number] [place] [address] 16 Jul, 2012 [facility] [address] [id number] [place] [address] Jun, [facility] [address] [id number] [place] [address] 18 Jun, 2012 [facility] [address] [id number] [place] [address] Jun, [facility] [address] [id number] [place] [address] Jun, [facility] [address] [id number] [place] [address] Jun, [facility] [address] [id number] [place] [address] May, [facility] [address] [id number] [place] [address] 18 May, 2012 [facility] [address] [id number] [place] [address] May, [facility] [address] [id number] [place] [address] Apr, [facility] [address] [id number] [place] [address] 14 Apr, 2012 [facility] [address] [id number] [place] [address] Apr, [facility] [address] [id number] [place] [address] 31 Mar, 2012 [facility] [address] [id number] [place] [address] 31 Mar, 2012 [facility] [address] [id number] [place] [address] 13 Mar, 2012 [facility] [address] [id number] [place] [address] 13 Mar, 2012 [facility] [address] [id number] [place] [address] Mar, [facility] [address] [id number] [place] [address] Mar, [facility] [address] [id number] [place] [address] Feb, [facility] [address] [id number] [place] [address] Feb, [facility] [address] [id number] [place] [address] Jan, [facility] [address] [id number] [place] [address] Jan, [facility] [address] [id number] [place] [address] Dec, [facility] [address] [id number] [place] [address] Nov, [facility] [address] [id number] [place] [address] Nov, [facility] [address] [id number] [place] [address] Nov, [facility] [address] [id number] [place] [address] Nov, [facility] [address] [id number] [place] [address] Oct, [facility] [address] [id number] [place] [address] Oct, [facility] [address] [id number] [place] [address] Oct, [facility] [address] [id number] [place] [address] Sep, [facility] [address] [id number] [place] [address] Sep, [facility] [address] [id number] [place] [address] Sep, [facility] [address] [id number] [place] [address] August, [facility] [address] [id number] [place] [address] August, [facility] [address] [id number] [place] [address] Jul, [facility] [address] [id number] [place] [address] Jul, [facility] [address] [id number] [place] [address] Jul, [facility] [address] [id number] [place] [address] Jul, [facility] [address] [id number] [place] [address] Jun, [facility] [address] [id number] [place] [address] May, [facility] [address] [id number] [place] [address] Apr, [facility] [address] [id number] [place] [address] Apr, [facility] [address] [id number] [place] [address] Apr, [facility] [address] [id number] [place] [address] Apr, [facility] [address] [id number] [place] [address] Apr, [facility] [address] [id number] [place] [address] Apr, [facility] [id number] [place] [address] Mar, [facility] [address] [id number] [place] [address] Mar, [facility] [address] [id number] [place] [address] Feb, [facility] [address] [id number] [place] [address] 18 Feb, 2011 [facility] [address] [id number] [place] [address] Feb, [facility] [address] [id number] [place] [address] Feb, [facility] [id number] [place] [address] Jan, [facility] [address] [id number] [place] [address] Jan, [facility] [address] [id number] [place] [address] Jan, [facility] [address] [id number] [place] [address] Jan, [facility] [id number] [place] [address] Nov, [facility] [id number] [place] [address] Mar, [facility] [id number] [place] [address] Mar, [facility] [id number] [place] [address] Feb, [facility] [id number] [place] [address] Feb, [facility] [id number] [place] [address] Jan, [facility] [address] [id number] [place] [address] Jan, [facility] [id number] [place] [address] Sep, [facility] [address] [id number] [place] [address] 16 May, 2009 [facility] [id number] [place] [address] Apr, [facility] [address] [id number] [place] [address] Mar, [facility] [address] [id number] [place] [address] 15 Feb, 2009 [facility] [address] [id number] [place] [address] Feb, [facility] [id number] [place] [address] Feb, [facility] [address] [id number] [place] [address] 22 Jan, 2009 [facility] [id number] [place] [address] Jan, [facility] [address] [id number] [place] [address] 13 Jan, 2009 [facility] [id number] [place] [address] Jan, [facility] [address] [id number] [place] [address] August, IMMUNIZATIONS No Known Immunizations SOCIAL HISTORY [...] age 6 Hospitalization History surgery Hospitalization History [facility], inva akbar treatment few times for BH
--- OUTSIDE RECORDS SUMMARY | 2019-09-29 10:39 | XMS REPORT ---
Author Author Cameron ALANIZ [facility] Address [address] [place] [address] Care Team Providers Care Fire Watcher Name Role Phone JEET ALANIZ Unavailable PROBLEMS Type Condition ICD9-CM Code THO15-XF Code Onset Dates Condition S tatus SNOMED Code Problem Adjustment disorder, unspecified type F43.20 Active 97938595 Problem Reactive airway disease, unspecified asthma justin rity, uncomplicated J45.909 Active 343872029867 Problem Hypertensive retinopathy of both eyes H35.033 Active 4458590 Problem Open-angle glaucoma of both eyes, unspecified glaucoma stage, unspecified open-angle glaucoma type H40.10X0 Acti ve 23862044 Problem Essential hypertension I10 Active 95201223 Problem Obstructive sleep apnea G47.33 Active 96901106 Problem Intermittent explosive disorder F63.81 Active 54138637 Problem Type 2 diabetes mellitus with complication E11.8 Active 46697958 Problem Bipolar disorder, in partial remission, most rec ent episode manic F31.73 Active 99461000 Problem Intermittent explosive disorder in adult F63.81 Active 40904958 Problem Bipolar disorder, unspecified F31.9 Active 34275613 Problem Neuropathy G62.9 Active 441681410 Problem Diabetes E11.9 Active 10220664 Problem Other specified urinary incontinence N39.498 Active 915853115 Problem Depression F32.9 Active 23687837 Problem 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 Active 71498718 Problem Mild intellectual disability F70 A ctive 76147699 Problem Reactive airway disease, mild intermittent, uncomplicated J45.20 Active 032542854 Problem Gastroesophageal reflux disease without esophagitis K21.9 Active 497949647 Problem Other diabetic neurological complication associated with type 2 diabetes mellitus E11.49 Active [id number] ALLERGIES No Information ENCOUNTERS Encounter Location Date Diagnosis [facility] [address] [id number] [place] [address] August, [facility] [address] [address] Jul, [facility] [address] [address] Jul, [facility] [address] [address] May, Influenza J11.1 [place] [address] [address] 13 May, 2019 Intermittent explosive disorder in adult F63.81 [place] [address] [address] May, [place] [address] [address] Apr, Intermittent explosive disorder in adult F63.81 ; Bipolar disorder, unspecified F31.9 and Mild intellectual disability F70 [facility] [address] [facility] [address] [id number] [address] Apr, Oral health maintenance stat us requiring routine preventive dental care K08.9 [place] [address] [address] Apr, Type 2 diabetes mellitus with complicati on E11.8 ; History of test for hearing Z92.89 ; Colon cancer screening Z12.11 ; Other specified urinary incontinence N39.498 and Impacted cerumen, right ear H61.21 [place] [address] [address] Apr, Onychomycosis B35.1 ; Other diabetic luc rological complication associated with type 2 diabetes mellitus E11.49 and Tinea pedis of both feet B35.3 [place] [address] [address] 14 Feb, 2019 [place] [address] [address] Jan, [place] [address] [place] [address] Jan, [facility] [address] [address] Jan, [facility] [address] [address] Jan, [facility] [address] [address] Jan, [facility] [address] [address] Jan, [facility] [address] [address] Jan, [facility] [address] [address] Jan, Anemia D64.9 [facility] [address] [place] [address] [id number] [address] Jan, Dental examination Z01.20 an d Oral health maintenance status requiring routine preventive dental care K08.9 [place] [address] [address] Jan, Onychomycosis B35.1 and Other diabetic n eurological complication associated with type 2 diabetes mellitus E11.49 [place] [address] [address] Jan, Anemia D64.9 [facility] [address] [address] Jan, [facility] [address] [address] Dec, Urinary tract infection without hematuri a, site unspecified N39.0 [facility] [address] [address] Dec, Type 2 diabetes mellitus with complicati on E11.8 ; Urinary tract infection without hematuria, site unspecified N39.0 ; Impacted cerumen of both ears H61.23 ; Encounter for immunization Z23 and Hyponatremia E87.1 [facility] [address] [address] 30 Dec, 2018 Intermittent explosive disorder in adult F63.81 ; Dysuria R30.0 ; Type 2 diabetes mellitus with complication E11.8 ; Bipolar disorder, unspecified F31.9 and Mild intellectual disability F70 [facility] [address] [address] Dec, Dysuria R30.0 [facility] [address] [address] Dec, Intermittent explosive disorder in adult F63.81 ; Bipolar disorder, unspecified F31.9 and Mild intellectual disability F70 [facility] [address] [place] [id number] Nov, [facility] [address] [address] Oct, [facility] [address] [place] [address] [id number] [place] [address] Oct, Oral health maintenance stat us requiring routine preventive dental care K08.9 [facility] [address] [address] August, Intermittent explosive disorder in adult F63.81 ; Bipolar disorder, unspecified F31.9 and Mild intellectual disability F70 [facility] [address] [id number] August, Dental caries K02.9 [facility] [address] [address] Jul, Onychomycosis B35.1 ; Other diabetic luc rological complication associated with type 2 diabetes mellitus E11.49 and Tinea pedis of both feet B35.3 [facility] [address] [id number] Jul, Caries K02.9 [facility] [address] [address] Jul, Type 2 diabetes mellitus with complicati on E11.8 ; Tobacco abuse Z72.0 and Bipolar disorder, unspecified F31.9 [facility] [address] [place] [id number] [place] [address] Jun, [facility] [address] [facility] [id number] [place] [id number] Jun, Dental examination Z01.20 and Oral healt h maintenance status requiring routine preventive dental care K08.9 [place] [address] [address] 11 May, 2018 Bilateral impacted cerumen H61.23 [place] [address] [address] Apr, Bipolar disorder, unspecified F31.9 ; In termittent explosive disorder in adult F63.81 ; Type 2 diabetes mellitus with complication E11.8 ; Tobacco abuse Z72.0 and Colon cancer screening Z12.11 [place] [address] [address] Apr, Onychomycosis B35.1 and Other diabetic n eurological complication associated with type 2 diabetes mellitus E11.49 [place] [address] [address] Apr, Intermittent explosive disorder in adult F63.81 ; Bipolar disorder, unspecified F31.9 and Mild intellectual disability F70 [place] [address] [address] Mar, Diabetes E11.9 [facility] [address] [facility] [place] [id number] [address] [place] [address] Jan, Encounter for immunization Z 23 [place] [address] [address] Jan, Tinea pedis of both feet B35.3 ; Other d iabetic neurological complication associated with type 2 diabetes mellitus E11.49 and Onychomycosis B35.1 [place] [address] [address] Nov, Type 2 diabetes mellitus with complicati on E11.8 [place] [address] [address] Nov, [place] [address] [address] Oct, Intermittent explosive disorder in adult F63.81 ; Bipolar disorder, unspecified F31.9 and Mild intellectual disability F70 [place] [address] [address] Oct, [facility] [address] [id number] Oct, Dental examination Z01.20 [place] [address] [address] Oct, Onychomycosis B35.1 and Other diabetic n eurological complication associated with type 2 diabetes mellitus E11.49 [place] [address] [address] Sep, Type 2 diabetes mellitus with complicati on E11.8 and Colon cancer screening Z12.11 [place] [address] [address] Sep, Type 2 diabetes mellitus with complicati on E11.8 ; Colon cancer screening Z12.11 and Neuropathy G62.9 [place] [address] [address] August, Diabetes E11.9 [facility] [address] [id number] Jul, Dental examination Z01.20 [place] [address] [address] May, Mild intellectual disability F70 [place] [address] [address] 07 May, 2017 Mild intellectual disability F70 ; High risk medication use Z79.899 ; Intermittent explosive disorder in adult F63.81 and Bipolar disorder, unspecified F31.9 [place] [address] [address] May, [facility] [address] [address] May, [facility] [address] [address] Apr, Type 2 diabetes mellitus with complicati on E11.8 ; Mild intellectual disability F70 ; Gastroesophageal reflux disease without esophagitis K21.9 ; Reactive airway disease, mild intermittent, uncomplicated J45.20 and Tobacco abuse Z72.0 [place] [address] [address] Apr, High risk medication use Z79.899 ; Mild intellectual disability F70 ; Intermittent explosive disorder in adult F63.81 and Bipolar disorder, unspecified F31.9 [facility] [address] [id number] Mar, Encounter for dental exam and cleaning w /o abnormal findings Z01.20 [facility] [address] [id number] Mar, Dental examination Z01.20 [place] [address] [address] 12 Jan, 2017 [place] [address] [address] Jan, [place] [address] [address] Jan, Mild intellectual disability F70 ; Bipol ar disorder, unspecified F31.9 and Intermittent explosive disorder in adult F63.81 [facility] [address] [address] 02 Jan, 2017 Diabetes E11.9 [facility] [address] [id number] Dec, Encounter for dental examination and osei aning without abnormal findings Z01.20 [place] [address] [address] Dec, Bipolar disorder, unspecified F31.9 ; In termittent explosive disorder in adult F63.81 and Mild intellectual disability F70 [facility] [address] [address] Nov, Diabetes E11.9 [facility] [address] [address] Nov, [facility] [address] [address] 14 Nov, 2016 Diabetes E11.9 and Colon cancer screenin g Z12.11 [facility] [address] [id number] [place] [id number] 21 Sep, 2016 Dental examination Z01.20 [facility] [address] [id number] 21 Sep, 2016 Encounter for dental examination and osei aning without abnormal findings Z01.20 [facility] [address] [address] 13 Sep, 2016 Bipolar disorder, unspecified F31.9 [facility] [address] [address] 12 Sep, 2016 Bipolar disorder, unspecified F31.9 [facility] [address] [address] 26 Jul, 2016 [facility] [address] [address] 13 Jul, 2016 Type 2 diabetes mellitus with complicati on E11.8 [facility] [address] [id number] 15 Jun, 2016 Encounter for dental examination and osei aning without abnormal findings Z01.20 [facility] [address] [facility] [id number] [place] [id number] 15 Jun, 2016 Dental examination Z01.20 [facility] [address] [address] 18 Apr, 2016 Sports physical Z02.5 [facility] [address] [place] [address] 14 Mar, 2016 Bipolar disorder, in partial remission, most recent episode manic F31.73 and Intermittent explosive disorder in adult F63.81 [facility] [address] [place] [address] 08 Mar, 2016 [facility] [address] [address] 06 Mar, 2016 Diabetes E11.9 [facility] [address] [id number] Feb, Encounter for dental examination and osei aning without abnormal findings Z01.20 [facility] [address] [address] 22 Dec, 2015 Nocturnal hypoxemia G47.34 and Encounter for immunization Z23 [facility] [address] [address] 15 Dec, 2015 [facility] [address] [address] 12 Dec, 2015 [facility] [address] [address] 12 Dec, 2015 Bipolar disorder, unspecified F31.9 [facility] [address] [id number] Oct, Encounter for dental examination and osei aning without abnormal findings Z01.20 [place] [id number] [facility] [address] [id number] [id number] 13 Oct, 2015 Dental examination Z01.20 [facility] [address] [address] 07 Oct, 2015 Diabetes E11.9 [facility] [address] [address] 05 Oct, 2015 Diabetes E11.9 ; Reactive airway disease , mild intermittent, uncomplicated J45.20 and Tobacco abuse Z72.0 [facility] [address] [address] 06 Sep, 2015 Bipolar disorder, unspecified F31.9 and Depression F32.9 [place] [address] [address] Sep, [place] [address] [address] August, Tinea pedis of both feet B35.3 and DM w/ o complication type II, uncontrolled E11.65 [place] [address] [address] Jul, [place] [address] [address] Jul, [place] [address] [address] Jul, Obstructive sleep apnea G47.[address] [address] Jun, Diabetes E11.9 [place] [address] [address] Jun, [place] [address] [address] Jun, [address] [address] Jun, Bipolar disorder, unspecified F31.9 and Mental retardation F79 [address] [address] Apr, [address] [address] Feb, Diabetes E11.9 ; Encounter for immunizat ion Z23 ; Cough R05 and Nicotine abuse Z72.[address] [address] Jan, Bipolar disorder, unspecified F31.9 and Diabetes mellitus without mention of complication, type II or unspecified type, uncontrolled 250.[address] [address] Jan, [address] [place] [address] Dec, Reactive airway disease 493.90 and Enure sis 788.30 [facility] [address] [address] Dec, [facility] [address] [address] Nov, [facility] [address] [address] Nov, [place] [address] [address] Nov, Annual physical exam V70.0 ; Urinary inc ontinence 788.30 ; Diabetes 250.00 and Hypertension 401.9 [place] [address] [address] Oct, Diabetes mellitus without mention of com plication, type II or unspecified type, uncontrolled 250.02 [place] [address] [address] Oct, Diabetes mellitus without mention of com plication, type II or unspecified type, uncontrolled 250.02 [place] [address] [address] Oct, Diabetes mellitus without mention of com plication, type II or unspecified type, uncontrolled 250.02 [facility] [address] [address] Oct, [facility] [address] [address] Oct, [facility] [address] [address] Oct, Bipolar disorder, unspecified 296.80 [facility] [address] [id number] [place] [id number] Sep, Dental examination V72.2 [facility] [address] [address] August, [facility] [address] [facility] [id number] [place] [id number] August, Dental examination V72.2 [facility] [address] [id number] [place] [address] August, [facility] [place] [facility] [address] [id number] [place] [address] 14 Jul, 2014 [facility] [place] [facility] [address] [id number] [place] [address] Jul, [facility] [place] [facility] [address] [id number] [place] [address] Jun, [facility] [place] [facility] [address] [id number] [place] [address] Jun, [facility] [place] [facility] [address] [id number] [place] [address] Jun[facility] [place] [facility] [address] [id number] [place] [address] Jun, [facility] [place] [facility] [address] [id number] [place] [address] May, [facility] [place] [facility] [address] [id number] [place] [address] May, [facility] [place] [facility] [address] [id number] [place] [address] 16 May, 2014 [facility] [place] [facility] [address] [id number] [place] [address] May, 2014 [facility] [place] [facility] [address] [id number] [place] [address] 16 May, 2014 [facility] [place] [facility] [address] [id number] [place] [address] May, 2014 [facility] [place] [facility] [address] [id number] [place] [address] 16 May, 2014 [facility] [place] [facility] [address] [id number] [place] [address] 16 May, 2014 [facility] [place] [facility] [address] [id number] [place] [address] 16 May, 2014 [facility] [place] [facility] [address] [facility] [place] [id number] [place] [address] May, [facility] [place] [facility] [address] [id number] [place] [address] May, 2014 [facility] [place] [facility] [address] [id number] [place] [address] May, 2014 [facility] [place] [facility] [address] [id number] [place] [address] May, 2014 [facility] [place] [facility] [address] [id number] [place] [address] May, [facility] [place] [facility] [address] [id number] [place] [address] May, [facility] [place] [facility] [address] [id number] [place] [address] Apr, [facility] [place] [facility] [address] [id number] [place] [address] Apr, [facility] [place] [facility] [address] [id number] [place] [address] Apr, [facility] [place] [facility] [address] [id number] [place] [address] Apr, [facility] [place] [facility] [address] [id number] [place] [address] Apr, [facility] [place] [facility] [address] [id number] [place] [address] Apr, [facility] [place] [facility] [address] [id number] [place] [address] Apr, [facility] [place] [facility] [address] [id number] [place] [address] Apr, [facility] [place] [facility] [address] [id number] [place] [address] Apr, [facility] [place] [facility] [address] [id number] [place] [address] Apr, [facility] [place] [facility] [address] [id number] [place] [address] Apr, [facility] [place] [facility] [address] [id number] [place] [address] Apr, [facility] [place] [facility] [address] [id number] [place] [address] Mar, [facility] [place] [facility] [address] [id number] [place] [address] Mar, [facility] [place] [facility] [address] [facility] [place] [id number] [place] [address] Mar, [facility] [place] [facility] [address] [id number] [place] [address] Mar, [facility] [place] [facility] [address] [id number] [place] [address] Mar, [facility] [place] [facility] [address] [id number] [place] [address] Mar, [facility] [place] [facility] [address] [id number] [place] [address] Feb, [facility] [place] [facility] [address] [id number] [place] [address] Feb, [facility] [place] [facility] [address] [id number] [place] [address] Feb, [facility] [place] [facility] [address] [id number] [place] [address] Feb, [facility] [place] [facility] [address] [id number] [place] [address] 14 Jan, 2014 [facility] [place] [facility] [address] [id number] [place] [address] 14 Jan, 2014 [facility] [place] [facility] [address] [id number] [place] [address] 14 Jan, 2014 [facility] [place] [facility] [address] [id number] [place] [address] 14 Jan, 2014 [facility] [place] [facility] [address] [id number] [place] [address] Dec, [facility] [place] [facility] [address] [id number] [place] [address] Dec, [facility] [place] [facility] [address] [facility] [place] [id number] [place] [address] Dec, [facility] [place] [facility] [address] [id number] [place] [address] Dec, [facility] [place] [facility] [address] [facility] [place] [id number] [place] [address] Nov, [facility] [place] [facility] [address] [facility] [place] [id number] [place] [address] Nov, [facility] [place] [facility] [address] [id number] [place] [address] Nov, [facility] [place] [facility] [address] [id number] [place] [address] Nov, [facility] [place] [facility] [address] [id number] [place] [address] Nov, [facility] [place] [facility] [address] [facility] [place] [id number] [place] [address] Nov, [facility] [place] [facility] [address] [id number] [place] [address] Nov, [facility] [place] [facility] [address] [id number] [place] [address] Oct, [facility] [place] [facility] [address] [id number] [place] [address] Oct, [facility] [place] [facility] [address] [facility] [place] [id number] [place] [address] Oct, [facility] [place] [facility] [address] [id number] [place] [address] Oct, [facility] [place] [facility] [address] [facility] [place] [id number] [place] [address] Oct, [facility] [place] [facility] [address] [id number] [place] [address] Oct, [facility] [place] [facility] [address] [id number] [place] [address] Oct, [facility] [place] [facility] [address] [id number] [place] [address] Sep, [facility] [address] [id number] [place] [address] Sep, [facility] [address] [id number] [place] [address] Sep, [facility] [address] [facility] [place] [id number] [place] [address] Sep, [facility] [address] [id number] [place] [address] Sep, [facility] [address] [id number] [place] [address] Jul, [facility] [address] [id number] [place] [address] Jul, [facility] [address] [id number] [place] [address] Jul, [facility] [address] [id number] [place] [address] Jul, [facility] [address] [id number] [place] [address] Jul, [facility] [address] [id number] [place] [address] Jul, [facility] [address] [id number] [place] [address] Jul, [facility] [address] [id number] [place] [address] Jul, [facility] [address] [id number] [place] [address] Jul, [facility] [facility] [address] [id number] [place] [address] Jul, [facility] [address] [id number] [place] [address] Jul, [facility] [address] [facility] [place] [id number] [place] [address] Jul, [facility] [address] [facility] [place] [id number] [place] [address] Jun, [facility] [address] [id number] [place] [address] Jun, [facility] [address] [id number] [place] [address] Jun, [facility] [address] [facility] [place] [id number] [place] [address] Jun, [facility] [address] [id number] [place] [address] Jun, [facility] [address] [id number] [place] [address] Jun, [facility] [address] [id number] [place] [address] Jun, [facility] [address] [id number] [place] [address] Jun, [facility] [address] [id number] [place] [address] May, [facility] [address] [id number] [place] [address] May, [facility] [address] [id number] [place] [address] May, [facility] [address] [id number] [place] [address] May, [facility] [address] [id number] [place] [address] May, [facility] [address] [id number] [place] [address] May, [facility] [address] [id number] [place] [address] 18 May, 2013 [facility] [address] [id number] [place] [address] May, [facility] [address] [id number] [place] [address] Apr, [facility] [address] [id number] [place] [address] Apr, [facility] [address] [id number] [place] [address] Apr, [facility] [address] [id number] [place] [address] Apr, [facility] [address] [id number] [place] [address] Mar, [facility] [address] [id number] [place] [address] Mar, [facility] [address] [id number] [place] [address] Mar, [facility] [address] [id number] [place] [address] Feb, [facility] [address] [id number] [place] [address] Feb, [facility] [address] [id number] [place] [address] Feb, [facility] [address] [id number] [place] [address] Feb, [facility] [address] [id number] [place] [address] Feb, [facility] [address] [id number] [place] [address] Feb, [facility] [address] [id number] [place] [address] Jan, [facility] [address] [id number] [place] [address] Jan, [facility] [address] [id number] [place] [address] Jan, [facility] [address] [id number] [place] [address] Jan, [facility] [address] [id number] [place] [address] Jan, [facility] [address] [id number] [place] [address] Jan, [facility] [address] [id number] [place] [address] Jan, [facility] [address] [facility] [place] [id number] [place] [address] Dec, [facility] [address] [id number] [place] [address] Dec, [facility] [address] [id number] [place] [address] Dec, [facility] [address] [id number] [place] [address] Dec, [facility] [address] [id number] [place] [address] Nov, [facility] [address] [id number] [place] [address] Nov, [facility] [address] [id number] [place] [address] Nov, [facility] [address] [id number] [place] [address] Nov, [facility] [address] [id number] [place] [address] Nov, [facility] [address] [id number] [place] [address] Nov, [facility] [address] [id number] [place] [address] Nov, [facility] [address] [id number] [place] [address] Oct, [facility] [address] [id number] [place] [address] Oct, [facility] [address] [facility] [place] [id number] [place] [address] Oct, [facility] [address] [id number] [place] [address] Oct, [facility] [address] [id number] [place] [address] Oct, [facility] [address] [id number] [place] [address] Oct, [facility] [address] [id number] [place] [address] Oct, [facility] [address] [id number] [place] [address] Oct, [facility] [address] [id number] [place] [address] Sep, Suleiman PEREZ [address] [place] [address] [id number] [place] [id number] August, [facility] [address] [id number] [place] [address] August, [facility] [address] [id number] [place] [address] Jul, [facility] [address] [id number] [place] [address] Jul, [facility] [address] [id number] [place] [address] Jul, [facility] [address] [id number] [place] [address] Jul, [facility] [address] [id number] [place] [address] Jul, [facility] [address] [id number] [place] [address] Jul, [facility] [address] [id number] [place] [address] Jul, [facility] [address] [id number] [place] [address] Jun, [facility] [address] [id number] [place] [address] Jun, [facility] [address] [id number] [place] [address] Jun, [facility] [address] [id number] [place] [address] Jun, [facility] [address] [id number] [place] [address] Jun, [facility] [address] [id number] [place] [address] May, [facility] [address] [id number] [place] [address] May, [facility] [address] [id number] [place] [address] May, [facility] [address] [id number] [place] [address] Apr, [facility] [address] [id number] [place] [address] 14 Apr, 2012 [facility] [address] [id number] [place] [address] Apr, [facility] [address] [id number] [place] [address] Mar, [facility] [address] [id number] [place] [address] Mar, [facility] [address] [id number] [place] [address] Mar, [facility] [address] [id number] [place] [address] Mar, [facility] [address] [id number] [place] [address] 10 Mar, 2012 [facility] [address] [id number] [place] [address] Mar, [facility] [address] [id number] [place] [address] Feb, [facility] [address] [id number] [place] [address] Feb, [facility] [address] [id number] [place] [address] Jan, [facility] [address] [id number] [place] [address] Jan, [facility] [address] [id number] [place] [address] Dec, [facility] [address] [id number] [place] [address] Nov, [facility] [address] [id number] [place] [address] Nov, [facility] [address] [id number] [place] [address] Nov, [facility] [address] [id number] [place] [address] Nov, [facility] [address] [id number] [place] [address] Oct, [facility] [address] [id number] [place] [address] Oct, [facility] [address] [id number] [place] [address] Oct, [facility] [address] [id number] [place] [address] Sep, [facility] [address] [id number] [place] [address] Sep, [facility] [address] [id number] [place] [address] Sep, [facility] [address] [id number] [place] [address] August, [facility] [address] [id number] [place] [address] August, [facility] [address] [id number] [place] [address] Jul, [facility] [address] [id number] [place] [address] 24 Jul, 2011 [facility] [address] [id number] [place] [address] Jul, [facility] [address] [id number] [place] [address] Jul, [facility] [address] [id number] [place] [address] Jun, [facility] [address] [id number] [place] [address] May, [facility] [address] [id number] [place] [address] Apr, [facility] [address] [id number] [place] [address] Apr, [facility] [address] [id number] [place] [address] Apr, [facility] [address] [id number] [place] [address] Apr, [facility] [address] [id number] [place] [address] Apr, [facility] [address] [id number] [place] [address] Apr, [facility] [address] [id number] [place] [address] Mar, [facility] [address] [id number] [place] [address] Mar, [facility] [address] [id number] [place] [address] Feb, [facility] [address] [id number] [place] [address] Feb, [facility] [address] [id number] [place] [address] 17 Feb, 2011 [facility] [address] [id number] [place] [address] Feb, [facility] [address] [id number] [place] [address] Jan, [facility] [address] [id number] [place] [address] Jan, [facility] [address] [id number] [place] [address] Jan, [facility] [address] [id number] [place] [address] Jan, [facility] [address] [id number] [place] [address] Nov, [facility] [id number] [place] [address] Mar, [facility] [address] [id number] [place] [address] Mar, [facility] [address] [id number] [place] [address] Feb, [facility] [address] [id number] [place] [address] Feb, [facility] [address] [id number] [place] [address] Jan, [facility] [address] [id number] [place] [address] Jan, [facility] [address] [id number] [place] [address] Sep, [facility] [address] [id number] [place] [address] 16 May, 2009 [facility] [address] [id number] [place] [address] Apr, [facility] [address] [id number] [place] [address] Mar, [facility] [address] [id number] [place] [address] Feb, [facility] [address] [id number] [place] [address] Feb, [facility] [address] [id number] [place] [address] Feb, [facility] [address] [id number] [place] [address] 22 Jan, 2009 [facility] [address] [id number] [place] [address] Jan, [facility] [address] [id number] [place] [address] 13 Jan, 2009 [facility] [address] [id number] [place] [address] Jan, [facility] [address] [id number] [place] [address] August, IMMUNIZATIONS No Known Immunizations SOCIAL HISTORY [...] age 6 Hospitalization History surgery Hospitalization History [facility], inpa tient treatment few times for BH
--- OUTSIDE RECORDS SUMMARY | 2019-09-29 10:40 | XMS REPORT ---
Author Author Cameron ALANIZ [facility] Address [address] [place] [address] Care Team Providers Care Telecommunications Cable Jointer Name Role Phone JEET ALANIZ Unavailable PROBLEMS Type Condition ICD9-CM Code HHH60-[id number] Code Onset Dates Condition S tatus SNOMED Code Problem Adjustment disorder, unspecified type F43.20 Active 85934336 Problem Reactive airway disease, unspecified asthma justin rity, uncomplicated J45.909 Active 035695155205 Problem Hypertensive retinopathy of both eyes H35.033 Active 9162184 Problem Open-angle glaucoma of both eyes, unspecified glaucoma stage, unspecified open-angle glaucoma type H40.10X0 Acti ve 33968407 Problem Essential hypertension I10 Active 55427726 Problem Obstructive sleep apnea G47.33 Active 04047338 Problem Intermittent explosive disorder F63.81 Active 77321873 Problem Type 2 diabetes mellitus with complication E11.8 Active 40666230 Problem Bipolar disorder, in partial remission, most rec ent episode manic F31.73 Active 02375026 Problem Intermittent explosive disorder in adult F63.81 Active 43283278 Problem Bipolar disorder, unspecified F31.9 Active 86569528 Problem Neuropathy G62.9 Active 738370442 Problem Diabetes E11.9 Active 81197104 Problem Other specified urinary incontinence N39.498 Active 922205821 Problem Depression F32.9 Active 79678248 Problem 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 Active 71259496 Problem Mild intellectual disability F70 A ctive 45311230 Problem Reactive airway disease, mild intermittent, uncomplicated J45.20 Active 545223831 Problem Gastroesophageal reflux disease without esophagitis K21.9 Active 537397262 Problem Other diabetic neurological complication associated with type 2 diabetes mellitus E11.49 Active [id number] ALLERGIES No Information ENCOUNTERS Encounter Location Date Diagnosis [facility] [address] [id number] [place] [address] August, [facility] [address] [address] Jul, [facility] [address] [address] Jul, [facility] [address] [address] May, Influenza J11.1 [place] [address] [address] 13 May, 2019 Intermittent explosive disorder in adult F63.81 [place] [address] [address] May, [place] [address] [address] Apr, Intermittent explosive disorder in adult F63.81 ; Bipolar disorder, unspecified F31.9 and Mild intellectual disability F70 [facility] [address] [facility] [address] [id number] [address] Apr, Oral health maintenance stat us requiring routine preventive dental care K08.9 [place] [address] [address] Apr, Type 2 diabetes mellitus with complicati on E11.8 ; History of test for hearing Z92.89 ; Colon cancer screening Z12.11 ; Other specified urinary incontinence N39.498 and Impacted cerumen, right ear H61.21 [place] [address] [address] Apr, Onychomycosis B35.1 ; Other diabetic luc rological complication associated with type 2 diabetes mellitus E11.49 and Tinea pedis of both feet B35.3 [place] [address] [address] 14 Feb, 2019 [place] [address] [address] Jan, [place] [address] [place] [address] Jan, [facility] [address] [address] Jan, [facility] [address] [address] Jan, [facility] [address] [address] Jan, [facility] [address] [address] Jan, [facility] [address] [address] Jan, [facility] [address] [address] Jan, Anemia D64.9 [facility] [address] [place] [address] [id number] [address] Jan, Dental examination Z01.20 an d Oral health maintenance status requiring routine preventive dental care K08.9 [place] [address] [address] Jan, Onychomycosis B35.1 and Other diabetic n eurological complication associated with type 2 diabetes mellitus E11.49 [place] [address] [address] Jan, Anemia D64.9 [facility] [address] [address] Jan, [facility] [address] [address] Dec, Urinary tract infection without hematuri a, site unspecified N39.0 [facility] [address] [address] Dec, Type 2 diabetes mellitus with complicati on E11.8 ; Urinary tract infection without hematuria, site unspecified N39.0 ; Impacted cerumen of both ears H61.23 ; Encounter for immunization Z23 and Hyponatremia E87.1 [facility] [address] [address] 30 Dec, 2018 Intermittent explosive disorder in adult F63.81 ; Dysuria R30.0 ; Type 2 diabetes mellitus with complication E11.8 ; Bipolar disorder, unspecified F31.9 and Mild intellectual disability F70 [facility] [address] [address] Dec, Dysuria R30.0 [facility] [address] [address] Dec, Intermittent explosive disorder in adult F63.81 ; Bipolar disorder, unspecified F31.9 and Mild intellectual disability F70 [facility] [address] [place] [id number] Nov, [facility] [address] [address] Oct, [facility] [address] [place] [address] [id number] [address] Oct, Oral health maintenance stat us requiring routine preventive dental care K08.9 [facility] [address] [address] August, Intermittent explosive disorder in adult F63.81 ; Bipolar disorder, unspecified F31.9 and Mild intellectual disability F70 [facility] [address] [id number] August, Dental caries K02.9 [facility] [address] [address] Jul, Onychomycosis B35.1 ; Other diabetic luc rological complication associated with type 2 diabetes mellitus E11.49 and Tinea pedis of both feet B35.3 [facility] [address] [id number] Jul, Caries K02.9 [facility] [address] [address] Jul, Type 2 diabetes mellitus with complicati on E11.8 ; Tobacco abuse Z72.0 and Bipolar disorder, unspecified F31.9 [facility] [address] [place] [id number] [place] [address] Jun, [facility] [address] [facility] [id number] [place] [id number] Jun, Dental examination Z01.20 and Oral healt h maintenance status requiring routine preventive dental care K08.9 [place] [address] [address] 11 May, 2018 Bilateral impacted cerumen H61.23 [place] [address] [address] Apr, Bipolar disorder, unspecified F31.9 ; In termittent explosive disorder in adult F63.81 ; Type 2 diabetes mellitus with complication E11.8 ; Tobacco abuse Z72.0 and Colon cancer screening Z12.11 [place] [address] [address] Apr, Onychomycosis B35.1 and Other diabetic n eurological complication associated with type 2 diabetes mellitus E11.49 [place] [address] [address] Apr, Intermittent explosive disorder in adult F63.81 ; Bipolar disorder, unspecified F31.9 and Mild intellectual disability F70 [place] [address] [address] Mar, Diabetes E11.9 [facility] [address] [facility] [id number] [place] [address] Jan, Encounter for immunization Z 23 [place] [address] [address] Jan, Tinea pedis of both feet B35.3 ; Other d iabetic neurological complication associated with type 2 diabetes mellitus E11.49 and Onychomycosis B35.1 [place] [address] [address] Nov, Type 2 diabetes mellitus with complicati on E11.8 [place] [address] [address] Nov, [place] [address] [address] Oct, Intermittent explosive disorder in adult F63.81 ; Bipolar disorder, unspecified F31.9 and Mild intellectual disability F70 [place] [address] [address] Oct, [facility] [address] [id number] Oct, Dental examination Z01.20 [place] [address] [address] Oct, Onychomycosis B35.1 and Other diabetic n eurological complication associated with type 2 diabetes mellitus E11.49 [place] [address] [address] Sep, Type 2 diabetes mellitus with complicati on E11.8 and Colon cancer screening Z12.11 [place] [address] [address] Sep, Type 2 diabetes mellitus with complicati on E11.8 ; Colon cancer screening Z12.11 and Neuropathy G62.9 [place] [address] [address] August, Diabetes E11.9 [facility] [address] [id number] Jul, Dental examination Z01.20 [place] [address] [address] May, Mild intellectual disability F70 [place] [address] [address] 07 May, 2017 Mild intellectual disability F70 ; High risk medication use Z79.899 ; Intermittent explosive disorder in adult F63.81 and Bipolar disorder, unspecified F31.9 [place] [address] [address] May, [facility] [address] [address] May, [facility] [address] [address] Apr, Type 2 diabetes mellitus with complicati on E11.8 ; Mild intellectual disability F70 ; Gastroesophageal reflux disease without esophagitis K21.9 ; Reactive airway disease, mild intermittent, uncomplicated J45.20 and Tobacco abuse Z72.0 [place] [address] [address] Apr, High risk medication use Z79.899 ; Mild intellectual disability F70 ; Intermittent explosive disorder in adult F63.81 and Bipolar disorder, unspecified F31.9 [facility] [address] [id number] Mar, Encounter for dental exam and cleaning w /o abnormal findings Z01.20 [facility] [address] [id number] Mar, Dental examination Z01.20 [place] [address] [address] 12 Jan, 2017 [place] [address] [address] Jan, [place] [address] [address] Jan, Mild intellectual disability F70 ; Bipol ar disorder, unspecified F31.9 and Intermittent explosive disorder in adult F63.81 [facility] [address] [address] 02 Jan, 2017 Diabetes E11.9 [facility] [address] [id number] Dec, Encounter for dental examination and osei aning without abnormal findings Z01.20 [place] [address] [address] Dec, Bipolar disorder, unspecified F31.9 ; In termittent explosive disorder in adult F63.81 and Mild intellectual disability F70 [facility] [address] [address] Nov, Diabetes E11.9 [facility] [address] [address] Nov, [facility] [address] [address] 14 Nov, 2016 Diabetes E11.9 and Colon cancer screenin g Z12.11 [facility] [address] [id number] [place] [id number] 21 Sep, 2016 Dental examination Z01.20 [facility] [address] [id number] 21 Sep, 2016 Encounter for dental examination and osei aning without abnormal findings Z01.20 [facility] [address] [address] 13 Sep, 2016 Bipolar disorder, unspecified F31.9 [facility] [address] [address] 12 Sep, 2016 Bipolar disorder, unspecified F31.9 [facility] [address] [address] 26 Jul, 2016 [facility] [address] [address] 13 Jul, 2016 Type 2 diabetes mellitus with complicati on E11.8 [facility] [address] [id number] 15 Jun, 2016 Encounter for dental examination and osei aning without abnormal findings Z01.20 [facility] [address] [facility] [address] [id number] [place] [id number] 15 Jun, [address] [facility] [address] [address] 18 Apr, [address] [facility] [address] [place] [id number] 14 Mar, 2016 Bipolar disorder, in partial remission, most recent episode manic F31.73 and Intermittent explosive disorder in adult F63.81 [facility] [address] [place] [id number] 08 Mar, 2016 [facility] [address] [address] 06 Mar, 2016 Diabetes E11.9 [facility] [address] [id number] Feb, Encounter for dental examination and osei aning without abnormal findings Z01.20 [facility] [address] [address] 22 Dec, 2015 Nocturnal hypoxemia G47.34 and Encounter for immunization Z23 [facility] [address] [address] 15 Dec, 2015 [facility] [address] [address] 12 Dec, 2015 [facility] [address] [address] 12 Dec, 2015 Bipolar disorder, unspecified F31.9 [facility] [address] [id number] Oct, Encounter for dental examination and osei aning without abnormal findings Z01.20 [place] [address] [facility] [address] [id number] [id number] 13 Oct, [address] [facility] [address] [address] 07 Oct, [address] [facility] [address] [address] 05 Oct, 2015 Diabetes E11.9 ; Reactive airway disease , mild intermittent, uncomplicated J45.20 and Tobacco abuse Z72.0 [facility] [address] [address] 06 Sep, 2015 Bipolar disorder, unspecified F31.9 and Depression F32.9 [place] [address] [address] Sep, [place] [address] [address] August, Tinea pedis of both feet B35.3 and DM w/ o complication type II, uncontrolled E11.65 [place] [address] [address] Jul, [place] [address] [address] Jul, [place] [address] [address] Jul, Obstructive sleep apnea G47.[address] [address] Jun, Diabetes E11.9 [place] [address] [address] Jun, [place] [address] [address] Jun, [address] [address] Jun, Bipolar disorder, unspecified F31.9 and Mental retardation F79 [address] [address] Apr, [address] [address] Feb, Diabetes E11.9 ; Encounter for immunizat ion Z23 ; Cough R05 and Nicotine abuse Z72.[address] [address] Jan, Bipolar disorder, unspecified F31.9 and Diabetes mellitus without mention of complication, type II or unspecified type, uncontrolled 250.[address] [address] Jan, [address] [place] [address] Dec, Reactive airway disease 493.90 and Enure sis 788.30 [facility] [address] [address] Dec, [facility] [address] [address] Nov, [facility] [address] [address] Nov, [place] [address] [address] Nov, Annual physical exam V70.0 ; Urinary inc ontinence 788.30 ; Diabetes 250.00 and Hypertension 401.9 [place] [address] [address] Oct, Diabetes mellitus without mention of com plication, type II or unspecified type, uncontrolled 250.02 [place] [address] [address] Oct, Diabetes mellitus without mention of com plication, type II or unspecified type, uncontrolled 250.02 [place] [address] [address] Oct, Diabetes mellitus without mention of com plication, type II or unspecified type, uncontrolled 250.02 [facility] [address] [address] Oct, [facility] [address] [address] Oct, [facility] [address] [address] Oct, Bipolar disorder, unspecified 296.80 [facility] [address] [id number] [place] [id number] Sep, Dental examination V72.2 [facility] [address] [address] August, [facility] [address] [facility] [id number] [place] [id number] August, Dental examination V72.2 [facility] [address] [id number] [place] [address] August, [facility] [place] [facility] [address] [id number] [place] [address] 14 Jul, 2014 [facility] [place] [facility] [address] [facility] [id number] [place] [address] Jul, [facility] [place] [facility] [id number] [place] [address] Jun, [facility] [place] [facility] [id number] [place] [address] Jun, [facility] [place] [facility] [id number] [place] [address] Jun, [facility] [place] [facility] [id number] [place] [address] Jun, [facility] [place] [facility] [id number] [place] [address] May, [facility] [place] [facility] [id number] [place] [address] May, [facility] [place] [facility] [id number] [place] [address] 16 May, 2014 [facility] [place] [facility] [id number] [place] [address] May, 2014 [facility] [place] [facility] [address] [id number] [place] [address] 16 May, 2014 [facility] [place] [facility] [address] [id number] [place] [address] May, 2014 [facility] [place] [facility] [address] [id number] [place] [address] 16 May, 2014 [facility] [place] [facility] [address] [id number] [place] [address] 16 May, 2014 [facility] [place] [facility] [id number] [place] [address] 16 May, 2014 [facility] [place] [facility] [address] [facility] [id number] [place] [address] May, [facility] [place] [facility] [id number] [place] [address] May, 2014 [facility] [place] [facility] [id number] [place] [address] May, 2014 [facility] [place] [facility] [address] [id number] [place] [address] May, 2014 [facility] [place] [facility] [id number] [place] [address] May, [facility] [place] [facility] [address] [id number] [place] [address] May, [facility] [place] [facility] [id number] [place] [address] Apr, [facility] [place] [facility] [id number] [place] [address] Apr, [facility] [place] [facility] [id number] [place] [address] Apr, [facility] [place] [facility] [address] [id number] [place] [address] Apr, [facility] [place] [facility] [address] [facility] [id number] [place] [address] Apr, [facility] [place] [facility] [address] [id number] [place] [address] Apr, [facility] [place] [facility] [id number] [place] [address] Apr, [facility] [place] [facility] [address] [id number] [place] [address] Apr, [facility] [place] [facility] [address] [id number] [place] [address] Apr, [facility] [place] [facility] [address] [id number] [place] [address] Apr, [facility] [place] [facility] [id number] [place] [address] Apr, [facility] [place] [facility] [id number] [place] [address] Apr, [facility] [place] [facility] [id number] [place] [address] Mar, [facility] [place] [facility] [id number] [place] [address] Mar, [facility] [place] [facility] [address] [facility] [id number] [place] [address] Mar, [facility] [place] [facility] [id number] [place] [address] Mar, [facility] [place] [facility] [id number] [place] [address] Mar, [facility] [place] [facility] [id number] [place] [address] Mar, [facility] [place] [facility] [id number] [place] [address] Feb, [facility] [place] [facility] [id number] [place] [address] Feb, [facility] [place] [facility] [id number] [place] [address] Feb, [facility] [place] [facility] [id number] [place] [address] Feb, [facility] [place] [facility] [id number] [place] [address] 14 Jan, 2014 [facility] [place] [facility] [id number] [place] [address] 14 Jan, 2014 [facility] [place] [facility] [id number] [place] [address] 14 Jan, 2014 [facility] [place] [facility] [id number] [place] [address] 14 Jan, 2014 [facility] [place] [facility] [address] [id number] [place] [address] Dec, [facility] [place] [facility] [address] [id number] [place] [address] Dec, [facility] [place] [facility] [address] [facility] [id number] [facility] [place] [address] Dec, [facility] [place] [facility] [id number] [place] [address] Dec, [facility] [place] [facility] [address] [facility] [id number] [place] [address] Nov, [facility] [place] [facility] [address] [facility] [id number] [facility] [address] Nov, [facility] [place] [facility] [id number] [place] [address] Nov, [facility] [place] [facility] [address] [id number] [place] [address] Nov, [facility] [place] [facility] [id number] [place] [address] Nov, [facility] [place] [facility] [address] [facility] [id number] [place] [address] Nov, [facility] [place] [facility] [address] [id number] [place] [address] Nov, [facility] [place] [facility] [id number] [place] [address] Oct, [facility] [place] [facility] [address] [id number] [place] [address] Oct, [facility] [place] [facility] [address] [facility] [id number] [place] [address] Oct, [facility] [place] [facility] [address] [facility] [id number] [place] [address] Oct, [facility] [place] [facility] [address] [facility] [id number] [place] [address] Oct, [facility] [place] [facility] [id number] [place] [address] Oct, [facility] [place] [facility] [address] [id number] [place] [address] Oct, [facility] [address] [id number] [place] [address] Sep, [facility] [id number] [place] [address] Sep, [facility] [id number] [place] [address] Sep, [facility] [address] [facility] [id number] [place] [address] Sep, [facility] [id number] [place] [address] Sep, [facility] [id number] [place] [address] Jul, [facility] [id number] [place] [address] Jul, [facility] [id number] [place] [address] Jul, [facility] [id number] [place] [address] Jul, [facility] [id number] [place] [address] Jul, [facility] [id number] [place] [address] Jul, [facility] [id number] [place] [address] Jul, [facility] [id number] [place] [address] Jul, [facility] [id number] [place] [address] Jul, [facility] [id number] [place] [address] Jul, [facility] [id number] [place] [address] Jul, [facility] [address] [facility] [id number] [place] [address] Jul, [facility] [address] [facility] [id number] [facility] [address] Jun, [facility] [id number] [place] [address] Jun, [facility] [id number] [place] [address] Jun, [facility] [address] [facility] [id number] [place] [address] Jun, [facility] [id number] [place] [address] Jun, [facility] [id number] [place] [address] Jun, [facility] [id number] [place] [address] Jun, [facility] [id number] [place] [address] Jun, [facility] [address] [id number] [place] [address] May, [facility] [id number] [place] [address] May, [facility] [id number] [place] [address] May, [facility] [id number] [place] [address] May, [facility] [id number] [place] [address] May, [facility] [id number] [place] [address] May, [facility] [id number] [place] [address] 18 May, 2013 [facility] [id number] [place] [address] May, [facility] [id number] [place] [address] Apr, [facility] [id number] [place] [address] Apr, [facility] [id number] [place] [address] Apr, [facility] [id number] [place] [address] Apr, [facility] [id number] [place] [address] Mar, [facility] [id number] [place] [address] Mar, [facility] [id number] [place] [address] Mar, [facility] [id number] [place] [address] Feb, [facility] [id number] [place] [address] Feb, [facility] [id number] [place] [address] Feb, [facility] [id number] [place] [address] Feb, [facility] [id number] [place] [address] Feb, [facility] [id number] [place] [address] Feb, [facility] [id number] [place] [address] Jan, [facility] [id number] [place] [address] Jan, [facility] [id number] [place] [address] Jan, [facility] [id number] [place] [address] Jan, [facility] [id number] [place] [address] Jan, [facility] [id number] [place] [address] Jan, [facility] [id number] [place] [address] Jan, [facility] [address] [facility] [id number] [place] [address] Dec, [facility] [id number] [place] [address] Dec, [facility] [id number] [place] [address] Dec, [facility] [id number] [place] [address] Dec, [facility] [id number] [place] [address] Nov, [facility] [id number] [place] [address] Nov, [facility] [id number] [place] [address] Nov, [facility] [id number] [place] [address] Nov, [facility] [id number] [place] [address] Nov, [facility] [id number] [place] [address] Nov, [facility] [id number] [place] [address] Nov, [facility] [id number] [place] [address] Oct, [facility] [id number] [place] [address] Oct, [facility] [address] [facility] [id number] [place] [address] Oct, [facility] [id number] [place] [address] Oct, [facility] [id number] [place] [address] Oct, [facility] [id number] [place] [address] Oct, [facility] [id number] [place] [address] Oct, [facility] [id number] [place] [address] Oct, [facility] [id number] [place] [address] Sep, Suleiman PEREZ [address] [place] [address] [id number] [place] [id number] August, [facility] [id number] [place] [address] August, [facility] [id number] [place] [address] Jul, [facility] [id number] [place] [address] Jul, [facility] [id number] [place] [address] Jul, [facility] [id number] [place] [address] Jul, [facility] [id number] [place] [address] Jul, [facility] [id number] [place] [address] Jul, [facility] [id number] [place] [address] Jul, [facility] [id number] [place] [address] Jun, [facility] [id number] [place] [address] Jun, [facility] [id number] [place] [address] Jun, [facility] [id number] [place] [address] Jun, [facility] [id number] [place] [address] Jun, [facility] [id number] [place] [address] May, [facility] [id number] [place] [address] May, [facility] [id number] [place] [address] May, [facility] [id number] [place] [address] Apr, [facility] [id number] [place] [address] 14 Apr, 2012 [facility] [id number] [place] [address] Apr, [facility] [id number] [place] [address] Mar, [facility] [id number] [place] [address] Mar, [facility] [id number] [place] [address] Mar, [facility] [id number] [place] [address] Mar, [facility] [id number] [place] [address] 10 Mar, 2012 [facility] [id number] [place] [address] Mar, [facility] [id number] [place] [address] Feb, [facility] [id number] [place] [address] Feb, [facility] [id number] [place] [address] Jan, [facility] [id number] [place] [address] Jan, [facility] [id number] [place] [address] Dec, [facility] [id number] [place] [address] Nov, [facility] [id number] [place] [address] Nov, [facility] [id number] [place] [address] Nov, [facility] [id number] [place] [address] Nov, [facility] [id number] [place] [address] Oct, [facility] [id number] [place] [address] Oct, [facility] [id number] [place] [address] Oct, [facility] [id number] [place] [address] Sep, [facility] [id number] [place] [address] Sep, [facility] [id number] [place] [address] Sep, [facility] [id number] [place] [address] August, [facility] [id number] [place] [address] August, [facility] [id number] [place] [address] Jul, [facility] [id number] [place] [address] 24 Jul, 2011 [facility] [id number] [place] [address] Jul, [facility] [id number] [place] [address] Jul, [facility] [id number] [place] [address] Jun, [facility] [id number] [place] [address] May, [facility] [id number] [place] [address] Apr, [facility] [id number] [place] [address] Apr, [facility] [id number] [place] [address] Apr, [facility] [id number] [place] [address] Apr, [facility] [id number] [place] [address] Apr, [facility] [id number] [place] [address] Apr, [facility] [id number] [place] [address] Mar, [facility] [id number] [place] [address] Mar, [facility] [id number] [place] [address] Feb, [facility] [id number] [place] [address] Feb, [facility] [id number] [place] [address] 17 Feb, 2011 [facility] [id number] [place] [address] Feb, [facility] [id number] [place] [address] Jan, [facility] [id number] [place] [address] Jan, [facility] [id number] [place] [address] Jan, [facility] [id number] [place] [address] Jan, [facility] [id number] [place] [address] Nov, [facility] [id number] [place] [address] Mar, [facility] [id number] [place] [address] Mar, [facility] [id number] [place] [address] Feb, [facility] [id number] [place] [address] Feb, [facility] [id number] [place] [address] Jan, [facility] [id number] [place] [address] Jan, [facility] [id number] [place] [address] Sep, [facility] [id number] [place] [address] 16 May, 2009 [facility] [id number] [place] [address] Apr, [facility] [id number] [place] [address] Mar, [facility] [id number] [place] [address] Feb, [facility] [id number] [place] [address] Feb, [facility] [id number] [place] [address] Feb, [facility] [id number] [place] [address] [address], [address] [facility] [id number] [place] [address] Jan, [facility] [id number] [place] [address] [address], [address] [facility] [id number] [place] [address] Jan, [facility] [id number] [place] [address] August, IMMUNIZATIONS No Known Immunizations SOCIAL HISTORY [...] age 6 Hospitalization History surgery Hospitalization History [facility], inpa tient treatment few times for BH
--- OUTSIDE RECORDS SUMMARY | 2019-09-29 10:40 | XMS REPORT ---
Author Author Cameron ALANIZ [facility] Address [address] [place] [address] Care Team Providers Care Dietary Aide Teacher Name Role Phone JEET ALANIZ Unavailable PROBLEMS Type Condition ICD9-CM Code [id number] Code Onset Dates Condition S tatus SNOMED Code Problem Adjustment disorder, unspecified type F43.20 Active 72917606 Problem Reactive airway disease, unspecified asthma justin rity, uncomplicated J45.909 Active [id number] Problem Hypertensive retinopathy of both eyes H35.033 Active 6259335 Problem Open-angle glaucoma of both eyes, unspecified glaucoma stage, unspecified open-angle glaucoma type H40.10X0 Acti ve 60086070 Problem Essential hypertension I10 Active 97271802 Problem Obstructive sleep apnea G47.33 Active 49919298 Problem Intermittent explosive disorder F63.81 Active 07241372 Problem Type 2 diabetes mellitus with complication E11.8 Active 87927531 Problem Bipolar disorder, in partial remission, most rec ent episode manic F31.73 Active 44042301 Problem Intermittent explosive disorder in adult F63.81 Active 42412546 Problem Bipolar disorder, unspecified F31.9 Active 63543647 Problem Neuropathy G62.9 Active 535130239 Problem Diabetes E11.9 Active 52663873 Problem Other specified urinary incontinence N39.498 Active 565653098 Problem Depression F32.9 Active 93823361 Problem 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 Active 85664865 Problem Mild intellectual disability F70 A ctive 27856641 Problem Reactive airway disease, mild intermittent, uncomplicated J45.20 Active 714279198 Problem Gastroesophageal reflux disease without esophagitis K21.9 Active 424849256 Problem Other diabetic neurological complication associated with type 2 diabetes mellitus E11.49 Active [id number] ALLERGIES No Information ENCOUNTERS Encounter Location Date Diagnosis [facility] [address] [id number] [place] [address] August, [facility] [address] [address] Jul, [facility] [address] [address] Jul, [facility] [address] [address] May, Influenza J11.1 [place] [address] [address] 13 May, 2019 Intermittent explosive disorder in adult F63.81 [place] [address] [address] May, [place] [address] [address] Apr, Intermittent explosive disorder in adult F63.81 ; Bipolar disorder, unspecified F31.9 and Mild intellectual disability F70 [facility] [address] [facility] [address] [id number] [address] Apr, Oral health maintenance stat us requiring routine preventive dental care K08.9 [place] [address] [address] Apr, Type 2 diabetes mellitus with complicati on E11.8 ; History of test for hearing Z92.89 ; Colon cancer screening Z12.11 ; Other specified urinary incontinence N39.498 and Impacted cerumen, right ear H61.21 [place] [address] [address] Apr, Onychomycosis B35.1 ; Other diabetic luc rological complication associated with type 2 diabetes mellitus E11.49 and Tinea pedis of both feet B35.3 [place] [address] [address] 14 Feb, 2019 [place] [address] [address] Jan, [place] [address] [place] [address] Jan, [facility] [address] [address] Jan, [facility] [address] [address] Jan, [facility] [address] [address] Jan, [facility] [address] [address] Jan, [facility] [address] [address] Jan, [facility] [address] [address] Jan, Anemia D64.9 [facility] [address] [place] [address] [id number] [address] Jan, Dental examination Z01.20 an d Oral health maintenance status requiring routine preventive dental care K08.9 [place] [address] [address] Jan, Onychomycosis B35.1 and Other diabetic n eurological complication associated with type 2 diabetes mellitus E11.49 [place] [address] [address] Jan, Anemia D64.9 [facility] [address] [address] Jan, [facility] [address] [address] Dec, Urinary tract infection without hematuri a, site unspecified N39.0 [facility] [address] [address] Dec, Type 2 diabetes mellitus with complicati on E11.8 ; Urinary tract infection without hematuria, site unspecified N39.0 ; Impacted cerumen of both ears H61.23 ; Encounter for immunization Z23 and Hyponatremia E87.1 [facility] [address] [address] 30 Dec, 2018 Intermittent explosive disorder in adult F63.81 ; Dysuria R30.0 ; Type 2 diabetes mellitus with complication E11.8 ; Bipolar disorder, unspecified F31.9 and Mild intellectual disability F70 [facility] [address] [address] Dec, Dysuria R30.0 [facility] [address] [address] Dec, Intermittent explosive disorder in adult F63.81 ; Bipolar disorder, unspecified F31.9 and Mild intellectual disability F70 [facility] [address] [place] [id number] Nov, [facility] [address] [address] Oct, [facility] [address] [place] [address] [id number] [address] Oct, Oral health maintenance stat us requiring routine preventive dental care K08.9 [facility] [address] [address] August, Intermittent explosive disorder in adult F63.81 ; Bipolar disorder, unspecified F31.9 and Mild intellectual disability F70 [facility] [address] [id number] August, Dental caries K02.9 [facility] [address] [address] Jul, Onychomycosis B35.1 ; Other diabetic luc rological complication associated with type 2 diabetes mellitus E11.49 and Tinea pedis of both feet B35.3 [facility] [address] [id number] Jul, Caries K02.9 [facility] [address] [address] Jul, Type 2 diabetes mellitus with complicati on E11.8 ; Tobacco abuse Z72.0 and Bipolar disorder, unspecified F31.9 [facility] [address] [place] [id number] [place] [address] Jun, [facility] [address] [facility] [id number] [place] [id number] Jun, Dental examination Z01.20 and Oral healt h maintenance status requiring routine preventive dental care K08.9 [place] [address] [address] 11 May, 2018 Bilateral impacted cerumen H61.23 [place] [address] [address] Apr, Bipolar disorder, unspecified F31.9 ; In termittent explosive disorder in adult F63.81 ; Type 2 diabetes mellitus with complication E11.8 ; Tobacco abuse Z72.0 and Colon cancer screening Z12.11 [place] [address] [address] Apr, Onychomycosis B35.1 and Other diabetic n eurological complication associated with type 2 diabetes mellitus E11.49 [place] [address] [address] Apr, Intermittent explosive disorder in adult F63.81 ; Bipolar disorder, unspecified F31.9 and Mild intellectual disability F70 [place] [address] [address] Mar, Diabetes E11.9 [facility] [address] [facility] [id number] [address] [place] [address] Jan, Encounter for immunization Z 23 [place] [address] [address] Jan, Tinea pedis of both feet B35.3 ; Other d iabetic neurological complication associated with type 2 diabetes mellitus E11.49 and Onychomycosis B35.1 [place] [address] [address] Nov, Type 2 diabetes mellitus with complicati on E11.8 [place] [address] [address] Nov, [place] [address] [address] Oct, Intermittent explosive disorder in adult F63.81 ; Bipolar disorder, unspecified F31.9 and Mild intellectual disability F70 [place] [address] [address] Oct, [facility] [address] [id number] Oct, Dental examination Z01.20 [place] [address] [address] Oct, Onychomycosis B35.1 and Other diabetic n eurological complication associated with type 2 diabetes mellitus E11.49 [place] [address] [address] Sep, Type 2 diabetes mellitus with complicati on E11.8 and Colon cancer screening Z12.11 [place] [address] [address] Sep, Type 2 diabetes mellitus with complicati on E11.8 ; Colon cancer screening Z12.11 and Neuropathy G62.9 [place] [address] [address] August, Diabetes E11.9 [facility] [address] [id number] Jul, Dental examination Z01.20 [place] [address] [address] May, Mild intellectual disability F70 [place] [address] [address] 07 May, 2017 Mild intellectual disability F70 ; High risk medication use Z79.899 ; Intermittent explosive disorder in adult F63.81 and Bipolar disorder, unspecified F31.9 [place] [address] [address] May, [facility] [address] [address] May, [facility] [address] [address] Apr, Type 2 diabetes mellitus with complicati on E11.8 ; Mild intellectual disability F70 ; Gastroesophageal reflux disease without esophagitis K21.9 ; Reactive airway disease, mild intermittent, uncomplicated J45.20 and Tobacco abuse Z72.0 [place] [address] [address] Apr, High risk medication use Z79.899 ; Mild intellectual disability F70 ; Intermittent explosive disorder in adult F63.81 and Bipolar disorder, unspecified F31.9 [facility] [address] [id number] Mar, Encounter for dental exam and cleaning w /o abnormal findings Z01.20 [facility] [address] [id number] Mar, Dental examination Z01.20 [place] [address] [address] 12 Jan, 2017 [place] [address] [address] Jan, [place] [address] [address] Jan, Mild intellectual disability F70 ; Bipol ar disorder, unspecified F31.9 and Intermittent explosive disorder in adult F63.81 [facility] [address] [address] 02 Jan, 2017 Diabetes E11.9 [facility] [address] [id number] Dec, Encounter for dental examination and osei aning without abnormal findings Z01.20 [place] [address] [address] Dec, Bipolar disorder, unspecified F31.9 ; In termittent explosive disorder in adult F63.81 and Mild intellectual disability F70 [facility] [address] [address] Nov, Diabetes E11.9 [facility] [address] [address] Nov, [facility] [address] [address] 14 Nov, 2016 Diabetes E11.9 and Colon cancer screenin g Z12.11 [facility] [address] [facility] [place] [id number] 21 Sep, 2016 Dental examination Z01.20 [facility] [address] [id number] 21 Sep, 2016 Encounter for dental examination and osei aning without abnormal findings Z01.20 [facility] [address] [address] 13 Sep, 2016 Bipolar disorder, unspecified F31.9 [facility] [address] [address] 12 Sep, 2016 Bipolar disorder, unspecified F31.9 [facility] [address] [address] 26 Jul, 2016 [facility] [address] [address] 13 Jul, 2016 Type 2 diabetes mellitus with complicati on E11.8 [facility] [address] [id number] 15 Jun, 2016 Encounter for dental examination and osei aning without abnormal findings Z01.20 [facility] [address] [facility] [address] [id number] [place] [id number] 15 Jun, 2016 Dental examination Z01.20 [facility] [address] [address] 18 Apr, 2016 Sports physical Z02.5 [facility] [address] [place] [id number] 14 Mar, 2016 Bipolar disorder, in partial remission, most recent episode manic F31.73 and Intermittent explosive disorder in adult F63.81 [facility] [address] [place] [id number] 08 Mar, 2016 [facility] [address] [address] 06 Mar, 2016 Diabetes E11.9 [facility] [address] [id number] Feb, Encounter for dental examination and osei aning without abnormal findings Z01.20 [facility] [address] [address] 22 Dec, 2015 Nocturnal hypoxemia G47.34 and Encounter for immunization Z23 [facility] [address] [address] 15 Dec, 2015 [facility] [address] [address] 12 Dec, 2015 [facility] [address] [address] 12 Dec, 2015 Bipolar disorder, unspecified F31.9 [facility] [address] [id number] Oct, Encounter for dental examination and oesi aning without abnormal findings Z01.20 [place] [address] [facility] [address] [id number] [id number] 13 Oct, 2015 Dental examination Z01.20 [facility] [address] [address] 07 Oct, 2015 Diabetes E11.9 [facility] [address] [address] 05 Oct, 2015 Diabetes E11.9 ; Reactive airway disease , mild intermittent, uncomplicated J45.20 and Tobacco abuse Z72.0 [facility] [address] [address] 06 Sep, 2015 Bipolar disorder, unspecified F31.9 and Depression F32.9 [place] [address] [address] Sep, [place] [address] [address] August, Tinea pedis of both feet B35.3 and DM w/ o complication type II, uncontrolled E11.65 [place] [address] [address] Jul, [place] [address] [address] Jul, [place] [address] [address] Jul, Obstructive sleep apnea G47.[address] [address] Jun, Diabetes E11.9 [place] [address] [address] Jun, [place] [address] [address] Jun, [address] [address] Jun, Bipolar disorder, unspecified F31.9 and Mental retardation F79 [address] [address] Apr, [address] [address] Feb, Diabetes E11.9 ; Encounter for immunizat ion Z23 ; Cough R05 and Nicotine abuse Z72.[address] [address] Jan, Bipolar disorder, unspecified F31.9 and Diabetes mellitus without mention of complication, type II or unspecified type, uncontrolled 250.[address] [address] Jan, [address] [place] [address] Dec, Reactive airway disease 493.90 and Enure sis 788.30 [facility] [address] [address] Dec, [facility] [address] [address] Nov, [facility] [address] [address] Nov, [place] [address] [address] Nov, Annual physical exam V70.0 ; Urinary inc ontinence 788.30 ; Diabetes 250.00 and Hypertension 401.9 [place] [address] [address] Oct, Diabetes mellitus without mention of com plication, type II or unspecified type, uncontrolled 250.02 [place] [address] [address] Oct, Diabetes mellitus without mention of com plication, type II or unspecified type, uncontrolled 250.02 [place] [address] [address] Oct, Diabetes mellitus without mention of com plication, type II or unspecified type, uncontrolled 250.02 [facility] [address] [address] Oct, [facility] [address] [address] Oct, [facility] [address] [address] Oct, Bipolar disorder, unspecified 296.80 [facility] [address] [id number] [place] [id number] Sep, Dental examination V72.2 [facility] [address] [address] August, [facility] [address] [facility] [id number] [place] [id number] August, Dental examination V72.2 [facility] [address] [id number] [place] [address] August, [facility] [place] [facility] [address] [id number] [place] [address] 14 Jul, 2014 [facility] [place] [facility] [address] [id number] [place] [address] Jul, [facility] [place] [facility] [address] [id number] [place] [address] Jun, [facility] [place] [facility] [address] [facility] [place] [address] Jun, [facility] [place] [facility] [address] [id number] [place] [address] Jun[facility] [place] [facility] [address] [id number] [place] [address] Jun, [facility] [place] [facility] [address] [id number] [place] [address] May, [facility] [place] [facility] [address] [id number] [place] [address] May, [facility] [place] [facility] [address] [id number] [place] [address] 16 May, 2014 [facility] [place] [facility] [address] [id number] [place] [address] May, 2014 [facility] [place] [facility] [address] [id number] [place] [address] 16 May, 2014 [facility] [place] [facility] [address] [id number] [place] [address] May, 2014 [facility] [place] [facility] [address] [id number] [place] [address] 16 May, 2014 [facility] [place] [facility] [address] [id number] [place] [address] 16 May, 2014 [facility] [place] [facility] [address] [id number] [place] [address] 16 May, 2014 [facility] [place] [facility] [address] [facility] [id number] [place] [address] May, [facility] [place] [facility] [address] [id number] [place] [address] May, 2014 [facility] [place] [facility] [address] [id number] [place] [address] May, 2014 [facility] [place] [facility] [address] [id number] [place] [address] May, 2014 [facility] [place] [facility] [address] [id number] [place] [address] May, [facility] [place] [facility] [address] [id number] [place] [address] May, [facility] [place] [facility] [address] [id number] [place] [address] Apr, [facility] [place] [facility] [address] [id number] [place] [address] Apr, [facility] [place] [facility] [address] [id number] [place] [address] Apr, [facility] [place] [facility] [address] [id number] [place] [address] Apr, [facility] [place] [facility] [address] [id number] [place] [address] Apr, [facility] [place] [facility] [address] [id number] [place] [address] Apr, [facility] [place] [facility] [address] [id number] [place] [address] Apr, [facility] [place] [facility] [address] [id number] [place] [address] Apr, [facility] [place] [facility] [address] [id number] [place] [address] Apr, [facility] [place] [facility] [address] [id number] [place] [address] Apr, [facility] [place] [facility] [address] [id number] [place] [address] Apr, [facility] [place] [facility] [address] [id number] [place] [address] Apr, [facility] [place] [facility] [address] [id number] [place] [address] Mar, [facility] [place] [facility] [address] [id number] [place] [address] Mar, [facility] [place] [facility] [address] [facility] [id number] [place] [address] Mar, [facility] [place] [facility] [address] [id number] [place] [address] Mar, [facility] [place] [facility] [address] [id number] [place] [address] Mar, [facility] [place] [facility] [address] [id number] [place] [address] Mar, [facility] [place] [facility] [address] [id number] [place] [address] Feb, [facility] [place] [facility] [address] [id number] [place] [address] Feb, [facility] [place] [facility] [address] [id number] [place] [address] Feb, [facility] [place] [facility] [address] [id number] [place] [address] Feb, [facility] [place] [facility] [address] [id number] [place] [address] 14 Jan, 2014 [facility] [place] [facility] [address] [id number] [place] [address] 14 Jan, 2014 [facility] [place] [facility] [address] [id number] [place] [address] 14 Jan, 2014 [facility] [place] [facility] [address] [id number] [place] [address] 14 Jan, 2014 [facility] [place] [facility] [address] [id number] [place] [address] Dec, [facility] [place] [facility] [address] [id number] [place] [address] Dec, [facility] [place] [facility] [address] [facility] [id number] [place] [address] Dec, [facility] [place] [facility] [address] [id number] [place] [address] Dec, [facility] [place] [facility] [address] [facility] [id number] [place] [address] Nov, [facility] [place] [facility] [address] [facility] [id number] [place] [address] Nov, [facility] [place] [facility] [address] [id number] [place] [address] Nov, [facility] [place] [facility] [address] [id number] [place] [address] Nov, [facility] [place] [facility] [address] [id number] [place] [address] Nov, [facility] [place] [facility] [address] [facility] [id number] [place] [address] Nov, [facility] [place] [facility] [address] [id number] [place] [address] Nov, [facility] [place] [facility] [address] [id number] [place] [address] Oct, [facility] [place] [facility] [address] [id number] [place] [address] Oct, [facility] [place] [facility] [address] [facility] [id number] [place] [address] Oct, [facility] [place] [facility] [address] [id number] [place] [address] Oct, [facility] [address] [facility] [id number] [place] [address] Oct, [facility] [address] [id number] [place] [address] Oct, [facility] [address] [id number] [place] [address] Oct, [facility] [address] [id number] [place] [address] Sep, [facility] [address] [id number] [place] [address] Sep, [facility] [address] [id number] [place] [address] Sep, [facility] [address] [facility] [id number] [place] [address] Sep, [facility] [address] [id number] [place] [address] Sep, [facility] [address] [id number] [place] [address] Jul, [facility] [address] [id number] [place] [address] Jul, [facility] [address] [id number] [place] [address] Jul, [facility] [address] [id number] [place] [address] Jul, [facility] [address] [id number] [place] [address] Jul, [facility] [address] [id number] [place] [address] Jul, [facility] [address] [id number] [place] [address] Jul, [facility] [address] [id number] [place] [address] Jul, [facility] [address] [facility] [id number] [place] [address] Jul, [facility] [address] [facility] [id number] [place] [address] Jul, [facility] [address] [facility] [id number] [place] [address] Jul, [facility] [address] [facility] [id number] [place] [address] Jul, [facility] [address] [facility] [id number] [place] [address] Jun, [facility] [address] [facility] [id number] [place] [address] Jun, [facility] [address] [facility] [id number] [place] [address] Jun, [facility] [address] [facility] [id number] [place] [address] Jun, [facility] [address] [facility] [id number] [place] [address] Jun, [facility] [address] [id number] [place] [address] Jun, [facility] [address] [facility] [id number] [place] [address] Jun, [facility] [address] [facility] [id number] [place] [address] Jun, [facility] [address] [facility] [id number] [place] [address] May, [facility] [address] [facility] [id number] [place] [address] May, [facility] [address] [facility] [id number] [place] [address] May, [facility] [address] [facility] [id number] [place] [address] May, [facility] [address] [facility] [id number] [place] [address] May, [facility] [address] [facility] [id number] [place] [address] May, [facility] [address] [facility] [id number] [place] [address] 18 May, 2013 [facility] [address] [facility] [id number] [place] [address] May, [facility] [address] [facility] [id number] [place] [address] Apr, [facility] [address] [facility] [id number] [place] [address] Apr, [facility] [address] [facility] [id number] [place] [address] Apr, [facility] [address] [facility] [id number] [place] [address] Apr, [facility] [address] [facility] [id number] [place] [address] Mar, [facility] [address] [facility] [id number] [place] [address] Mar, [facility] [address] [facility] [id number] [place] [address] Mar, [facility] [address] [facility] [id number] [place] [address] Feb, [facility] [address] [facility] [id number] [place] [address] Feb, [facility] [address] [facility] [id number] [place] [address] Feb, [facility] [address] [facility] [id number] [place] [address] Feb, [facility] [address] [facility] [id number] [place] [address] Feb, [facility] [address] [id number] [place] [address] Feb, [facility] [address] [id number] [place] [address] Jan, [facility] [address] [facility] [id number] [place] [address] Jan, [facility] [address] [facility] [id number] [place] [address] Jan, [facility] [address] [facility] [id number] [place] [address] Jan, [facility] [address] [facility] [id number] [place] [address] Jan, [facility] [address] [facility] [id number] [place] [address] Jan, [facility] [address] [facility] [id number] [place] [address] Jan, [facility] [address] [facility] [id number] [place] [address] Dec, [facility] [address] [facility] [id number] [place] [address] Dec, [facility] [address] [facility] [id number] [place] [address] Dec, [facility] [address] [facility] [id number] [place] [address] Dec, [facility] [address] [facility] [id number] [place] [address] Nov, [facility] [address] [facility] [id number] [place] [address] Nov, [facility] [address] [facility] [id number] [place] [address] Nov, [facility] [address] [facility] [id number] [place] [address] Nov, [facility] [address] [facility] [id number] [place] [address] Nov, [facility] [address] [facility] [id number] [place] [address] Nov, [facility] [address] [facility] [id number] [place] [address] Nov, [facility] [address] [facility] [id number] [place] [address] Oct, [facility] [address] [id number] [place] [address] Oct, [facility] [address] [facility] [id number] [place] [address] Oct, [facility] [address] [facility] [id number] [place] [address] Oct, [facility] [address] [facility] [id number] [place] [address] Oct, [facility] [address] [id number] [place] [address] Oct, [facility] [address] [facility] [id number] [place] [address] Oct, [facility] [address] [facility] [id number] [place] [address] Oct, [facility] [address] [facility] [id number] [place] [address] Sep, Suleiman PEREZ [address] [place] [address] [id number] [place] [id number] August, [facility] [address] [facility] [id number] [place] [address] August, [facility] [address] [id number] [place] [address] Jul, [facility] [address] [facility] [id number] [place] [address] Jul, [facility] [address] [facility] [id number] [place] [address] Jul, [facility] [address] [id number] [place] [address] Jul, [facility] [address] [id number] [place] [address] Jul, [facility] [address] [facility] [id number] [place] [address] Jul, [facility] [address] [id number] [place] [address] Jul, [facility] [address] [facility] [id number] [place] [address] Jun, [facility] [address] [facility] [id number] [place] [address] Jun, [facility] [address] [facility] [id number] [place] [address] Jun, [facility] [address] [id number] [place] [address] Jun, [facility] [address] [facility] [id number] [place] [address] Jun, [facility] [address] [id number] [place] [address] May, [facility] [address] [facility] [id number] [place] [address] May, [facility] [address] [facility] [id number] [place] [address] May, [facility] [address] [facility] [id number] [place] [address] Apr, [facility] [address] [facility] [id number] [place] [address] 14 Apr, 2012 [facility] [address] [facility] [id number] [place] [address] Apr, [facility] [address] [id number] [place] [address] Mar, [facility] [address] [facility] [id number] [place] [address] Mar, [facility] [address] [facility] [id number] [place] [address] Mar, [facility] [address] [facility] [id number] [place] [address] Mar, [facility] [address] [facility] [id number] [place] [address] 10 Mar, 2012 [facility] [address] [facility] [id number] [place] [address] Mar, [facility] [address] [id number] [place] [address] Feb, [facility] [address] [facility] [id number] [place] [address] Feb, [facility] [address] [facility] [id number] [place] [address] Jan, [facility] [address] [facility] [id number] [place] [address] Jan, [facility] [address] [facility] [id number] [place] [address] Dec, [facility] [address] [id number] [place] [address] Nov, [facility] [address] [facility] [id number] [place] [address] Nov, [facility] [address] [facility] [id number] [place] [address] Nov, [facility] [address] [facility] [id number] [place] [address] Nov, [facility] [address] [facility] [id number] [place] [address] Oct, [facility] [address] [facility] [id number] [place] [address] Oct, [facility] [address] [facility] [id number] [place] [address] Oct, [facility] [address] [facility] [id number] [place] [address] Sep, [facility] [address] [id number] [place] [address] Sep, [facility] [address] [id number] [place] [address] Sep, [facility] [address] [id number] [place] [address] August, [facility] [address] [id number] [place] [address] August, [facility] [address] [id number] [place] [address] Jul, [facility] [address] [id number] [place] [address] 24 Jul, 2011 [facility] [address] [id number] [place] [address] Jul, [facility] [address] [id number] [place] [address] Jul, [facility] [address] [id number] [place] [address] Jun, [facility] [address] [id number] [place] [address] May, [facility] [address] [id number] [place] [address] Apr, [facility] [address] [facility] [id number] [place] [address] Apr, [facility] [address] [id number] [place] [address] Apr, [facility] [address] [id number] [place] [address] Apr, [facility] [address] [id number] [place] [address] Apr, [facility] [address] [facility] [id number] [place] [address] Apr, [facility] [address] [facility] [id number] [place] [address] Mar, [facility] [address] [id number] [place] [address] Mar, [facility] [address] [id number] [place] [address] Feb, [facility] [address] [id number] [place] [address] Feb, [facility] [address] [facility] [id number] [place] [address] 17 Feb, 2011 [facility] [address] [facility] [id number] [place] [address] Feb, [facility] [address] [id number] [place] [address] Jan, [facility] [address] [facility] [id number] [place] [address] Jan, [facility] [address] [facility] [id number] [place] [address] Jan, [facility] [address] [facility] [id number] [place] [address] Jan, [facility] [address] [id number] [place] [address] Nov, [facility] [id number] [place] [address] Mar, [facility] [address] [id number] [place] [address] Mar, [facility] [address] [facility] [id number] [place] [address] Feb, [facility] [address] [id number] [place] [address] Feb, [facility] [address] [id number] [place] [address] Jan, [facility] [address] [id number] [place] [address] Jan, [facility] [address] [facility] [id number] [place] [address] Sep, [facility] [address] [facility] [id number] [place] [address] 16 May, 2009 [facility] [address] [facility] [id number] [place] [address] Apr, [facility] [address] [facility] [id number] [place] [address] Mar, [facility] [address] [id number] [place] [address] Feb, [facility] [address] [facility] [id number] [place] [address] Feb, [facility] [address] [facility] [id number] [place] [address] Feb, [facility] [address] [id number] [place] [address] 22 Jan, 2009 [facility] [address] [facility] [id number] [place] [address] Jan, [facility] [address] [facility] [id number] [place] [address] 13 Jan, 2009 [facility] [address] [id number] [place] [address] Jan, [facility] [address] [id number] [place] [address] August, IMMUNIZATIONS No Known Immunizations SOCIAL HISTORY [...] age 6 Hospitalization History surgery Hospitalization History [facility], inpa tient treatment few times for BH
--- OUTSIDE RECORDS SUMMARY | 2019-09-29 10:40 | XMS REPORT ---
Author Author Cameron ALANIZ [facility] Address [address] [place] [address] Care Team Providers Care Teacher Specialist Name Role Phone JEET ALANIZ Unavailable PROBLEMS Type Condition ICD9-CM Code PIQ65-GZ Code Onset Dates Condition S tatus SNOMED Code Problem Adjustment disorder, unspecified type F43.20 Active 06107589 Problem Reactive airway disease, unspecified asthma justin rity, uncomplicated J45.909 Active 141479667533 Problem Hypertensive retinopathy of both eyes H35.033 Active 6748919 Problem Open-angle glaucoma of both eyes, unspecified glaucoma stage, unspecified open-angle glaucoma type H40.10X0 Acti ve 27193528 Problem Essential hypertension I10 Active 34386248 Problem Obstructive sleep apnea G47.33 Active 22011728 Problem Intermittent explosive disorder F63.81 Active 68805219 Problem Type 2 diabetes mellitus with complication E11.8 Active 88321227 Problem Bipolar disorder, in partial remission, most rec ent episode manic F31.73 Active 24148587 Problem Intermittent explosive disorder in adult F63.81 Active 01954863 Problem Bipolar disorder, unspecified F31.9 Active 96103861 Problem Neuropathy G62.9 Active 227046328 Problem Diabetes E11.9 Active 15599823 Problem Other specified urinary incontinence N39.498 Active 583246337 Problem Depression F32.9 Active 99431052 Problem 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 Active 23442615 Problem Mild intellectual disability F70 A ctive 03376451 Problem Reactive airway disease, mild intermittent, uncomplicated J45.20 Active 278710730 Problem Gastroesophageal reflux disease without esophagitis K21.9 Active 233506723 Problem Other diabetic neurological complication associated with type 2 diabetes mellitus E11.49 Active [id number] ALLERGIES No Information ENCOUNTERS Encounter Location Date Diagnosis [facility] [address] [id number] [place] [address] August, [facility] [address] [address] Jul, [facility] [address] [address] Jul, [facility] [address] [address] May, Influenza J11.1 [place] [address] [address] 13 May, 2019 Intermittent explosive disorder in adult F63.81 [place] [address] [address] May, [place] [address] [address] Apr, Intermittent explosive disorder in adult F63.81 ; Bipolar disorder, unspecified F31.9 and Mild intellectual disability F70 [facility] [address] [facility] [address] [id number] [address] Apr, Oral health maintenance stat us requiring routine preventive dental care K08.9 [place] [address] [address] Apr, Type 2 diabetes mellitus with complicati on E11.8 ; History of test for hearing Z92.89 ; Colon cancer screening Z12.11 ; Other specified urinary incontinence N39.498 and Impacted cerumen, right ear H61.21 [place] [address] [address] Apr, Onychomycosis B35.1 ; Other diabetic luc rological complication associated with type 2 diabetes mellitus E11.49 and Tinea pedis of both feet B35.3 [place] [address] [address] 14 Feb, 2019 [place] [address] [address] Jan, [place] [address] [place] [address] Jan, [facility] [address] [address] Jan, [facility] [address] [address] Jan, [facility] [address] [address] Jan, [facility] [address] [address] Jan, [facility] [address] [address] Jan, [facility] [address] [address] Jan, Anemia D64.9 [facility] [address] [place] [address] [id number] [address] Jan, Dental examination Z01.20 an d Oral health maintenance status requiring routine preventive dental care K08.9 [place] [address] [address] Jan, Onychomycosis B35.1 and Other diabetic n eurological complication associated with type 2 diabetes mellitus E11.49 [place] [address] [address] Jan, Anemia D64.9 [facility] [address] [address] Jan, [facility] [address] [address] Dec, Urinary tract infection without hematuri a, site unspecified N39.0 [facility] [address] [address] Dec, Type 2 diabetes mellitus with complicati on E11.8 ; Urinary tract infection without hematuria, site unspecified N39.0 ; Impacted cerumen of both ears H61.23 ; Encounter for immunization Z23 and Hyponatremia E87.1 [facility] [address] [address] 30 Dec, 2018 Intermittent explosive disorder in adult F63.81 ; Dysuria R30.0 ; Type 2 diabetes mellitus with complication E11.8 ; Bipolar disorder, unspecified F31.9 and Mild intellectual disability F70 [facility] [address] [address] Dec, Dysuria R30.0 [facility] [address] [address] Dec, Intermittent explosive disorder in adult F63.81 ; Bipolar disorder, unspecified F31.9 and Mild intellectual disability F70 [facility] [address] [place] [id number] Nov, [facility] [address] [address] Oct, [facility] [place] [facility] [address] [place] [address] [id number] [place] [address] Oct, Oral health maintenance stat us requiring routine preventive dental care K08.9 [facility] [address] [address] August, Intermittent explosive disorder in adult F63.81 ; Bipolar disorder, unspecified F31.9 and Mild intellectual disability F70 [facility] [address] [id number] August, Dental caries K02.9 [facility] [address] [address] Jul, Onychomycosis B35.1 ; Other diabetic luc rological complication associated with type 2 diabetes mellitus E11.49 and Tinea pedis of both feet B35.3 [facility] [address] [id number] Jul, Caries K02.9 [facility] [address] [address] Jul, Type 2 diabetes mellitus with complicati on E11.8 ; Tobacco abuse Z72.0 and Bipolar disorder, unspecified F31.9 [facility] [address] [place] [id number] [place] [address] Jun, [facility] [place] [facility] [address] [facility] [id number] [place] [id number] Jun, Dental examination Z01.20 and Oral healt h maintenance status requiring routine preventive dental care K08.9 [place] [address] [address] 11 May, 2018 Bilateral impacted cerumen H61.23 [place] [address] [address] Apr, Bipolar disorder, unspecified F31.9 ; In termittent explosive disorder in adult F63.81 ; Type 2 diabetes mellitus with complication E11.8 ; Tobacco abuse Z72.0 and Colon cancer screening Z12.11 [place] [address] [address] Apr, Onychomycosis B35.1 and Other diabetic n eurological complication associated with type 2 diabetes mellitus E11.49 [place] [address] [address] Apr, Intermittent explosive disorder in adult F63.81 ; Bipolar disorder, unspecified F31.9 and Mild intellectual disability F70 [place] [address] [address] Mar, Diabetes E11.9 [facility] [address] [facility] [id number] [place] [address] Jan, Encounter for immunization Z 23 [place] [address] [address] Jan, Tinea pedis of both feet B35.3 ; Other d iabetic neurological complication associated with type 2 diabetes mellitus E11.49 and Onychomycosis B35.1 [place] [address] [address] Nov, Type 2 diabetes mellitus with complicati on E11.8 [place] [address] [address] Nov, [place] [address] [address] Oct, Intermittent explosive disorder in adult F63.81 ; Bipolar disorder, unspecified F31.9 and Mild intellectual disability F70 [place] [address] [address] Oct, [facility] [address] [id number] Oct, Dental examination Z01.20 [place] [address] [address] Oct, Onychomycosis B35.1 and Other diabetic n eurological complication associated with type 2 diabetes mellitus E11.49 [place] [address] [address] Sep, Type 2 diabetes mellitus with complicati on E11.8 and Colon cancer screening Z12.11 [place] [address] [address] Sep, Type 2 diabetes mellitus with complicati on E11.8 ; Colon cancer screening Z12.11 and Neuropathy G62.9 [place] [address] [address] August, Diabetes E11.9 [facility] [address] [id number] Jul, Dental examination Z01.20 [place] [address] [address] May, Mild intellectual disability F70 [place] [address] [address] 07 May, 2017 Mild intellectual disability F70 ; High risk medication use Z79.899 ; Intermittent explosive disorder in adult F63.81 and Bipolar disorder, unspecified F31.9 [place] [address] [address] May, [facility] [address] [address] May, [facility] [address] [address] Apr, Type 2 diabetes mellitus with complicati on E11.8 ; Mild intellectual disability F70 ; Gastroesophageal reflux disease without esophagitis K21.9 ; Reactive airway disease, mild intermittent, uncomplicated J45.20 and Tobacco abuse Z72.0 [place] [address] [address] Apr, High risk medication use Z79.899 ; Mild intellectual disability F70 ; Intermittent explosive disorder in adult F63.81 and Bipolar disorder, unspecified F31.9 [facility] [address] [id number] Mar, Encounter for dental exam and cleaning w /o abnormal findings Z01.20 [facility] [address] [id number] Mar, Dental examination Z01.20 [place] [address] [address] 12 Jan, 2017 [place] [address] [address] Jan, [place] [address] [address] Jan, Mild intellectual disability F70 ; Bipol ar disorder, unspecified F31.9 and Intermittent explosive disorder in adult F63.81 [facility] [address] [address] 02 Jan, 2017 Diabetes E11.9 [facility] [address] [id number] Dec, Encounter for dental examination and osei aning without abnormal findings Z01.20 [place] [address] [address] Dec, Bipolar disorder, unspecified F31.9 ; In termittent explosive disorder in adult F63.81 and Mild intellectual disability F70 [facility] [address] [address] Nov, Diabetes E11.9 [facility] [address] [address] Nov, [facility] [address] [address] 14 Nov, 2016 Diabetes E11.9 and Colon cancer screenin g Z12.11 [facility] [address] [id number] [place] [id number] 21 Sep, 2016 Dental examination Z01.20 [facility] [address] [id number] 21 Sep, 2016 Encounter for dental examination and osei aning without abnormal findings Z01.20 [facility] [address] [address] 13 Sep, 2016 Bipolar disorder, unspecified F31.9 [facility] [address] [address] 12 Sep, 2016 Bipolar disorder, unspecified F31.9 [facility] [address] [address] 26 Jul, 2016 [facility] [address] [address] 13 Jul, 2016 Type 2 diabetes mellitus with complicati on E11.8 [facility] [address] [id number] 15 Jun, 2016 Encounter for dental examination and osei aning without abnormal findings Z01.20 [facility] [address] [facility] [id number] [place] [id number] 15 Jun, 2016 Dental examination Z01.20 [facility] [address] [address] 18 Apr, 2016 Sports physical Z02.5 [facility] [address] [place] [id number] 14 Mar, 2016 Bipolar disorder, in partial remission, most recent episode manic F31.73 and Intermittent explosive disorder in adult F63.81 [facility] [address] [place] [id number] 08 Mar, 2016 [facility] [address] [address] 06 Mar, 2016 Diabetes E11.9 [facility] [place] [facility] [address] [id number] Feb, Encounter for dental examination and osei aning without abnormal findings Z01.20 [facility] [address] [address] 22 Dec, 2015 Nocturnal hypoxemia G47.34 and Encounter for immunization Z23 [facility] [address] [address] 15 Dec, 2015 [facility] [address] [address] 12 Dec, 2015 [facility] [address] [address] 12 Dec, 2015 Bipolar disorder, unspecified F31.9 [facility] [address] [id number] Oct, Encounter for dental examination and osei aning without abnormal findings Z01.20 [place] [address] [facility] [address] [id number] [id number] 13 Oct, 2015 Dental examination Z01.20 [facility] [address] [address] 07 Oct, 2015 Diabetes E11.9 [facility] [address] [address] 05 Oct, 2015 Diabetes E11.9 ; Reactive airway disease , mild intermittent, uncomplicated J45.20 and Tobacco abuse Z72.0 [facility] [address] [address] 06 Sep, 2015 Bipolar disorder, unspecified F31.9 and Depression F32.9 [place] [address] [address] Sep, [place] [address] [address] August, Tinea pedis of both feet B35.3 and DM w/ o complication type II, uncontrolled E11.65 [place] [address] [address] Jul, [place] [address] [address] Jul, [place] [address] [address] Jul, Obstructive sleep apnea G47.[address] [address] Jun, Diabetes E11.9 [place] [address] [address] Jun, [place] [address] [address] Jun, [address] [address] Jun, Bipolar disorder, unspecified F31.9 and Mental retardation F79 [address] [address] Apr, [address] [address] Feb, Diabetes E11.9 ; Encounter for immunizat ion Z23 ; Cough R05 and Nicotine abuse Z72.[address] [address] Jan, Bipolar disorder, unspecified F31.9 and Diabetes mellitus without mention of complication, type II or unspecified type, uncontrolled 250.[address] [address] Jan, [address] [place] [address] Dec, Reactive airway disease 493.90 and Enure sis 788.30 [facility] [address] [address] Dec, [facility] [address] [address] Nov, [facility] [address] [address] Nov, [place] [address] [address] Nov, Annual physical exam V70.0 ; Urinary inc ontinence 788.30 ; Diabetes 250.00 and Hypertension 401.9 [place] [address] [address] Oct, Diabetes mellitus without mention of com plication, type II or unspecified type, uncontrolled 250.02 [place] [address] [address] Oct, Diabetes mellitus without mention of com plication, type II or unspecified type, uncontrolled 250.02 [place] [address] [address] Oct, Diabetes mellitus without mention of com plication, type II or unspecified type, uncontrolled 250.02 [facility] [address] [address] Oct, [facility] [address] [address] Oct, [facility] [address] [address] Oct, Bipolar disorder, unspecified 296.80 [facility] [place] [facility] [address] [id number] [place] [id number] Sep, Dental examination V72.2 [facility] [address] [address] August, [facility] [place] [facility] [address] [facility] [id number] [place] [id number] August, Dental examination V72.2 [facility] [address] [id number] [place] [address] August, [facility] [place] [facility] [address] [id number] [place] [address] 14 Jul, 2014 [facility] [place] [facility] [address] [id number] [place] [address] Jul, [facility] [place] [facility] [address] [id number] [place] [address] Jun, [facility] [place] [facility] [address] [id number] [place] [address] Jun, [facility] [place] [facility] [address] [id number] [place] [address] Jun, [facility] [place] [facility] [address] [id number] [place] [address] Jun, [facility] [place] [facility] [address] [id number] [place] [address] May, [facility] [place] [facility] [address] [id number] [place] [address] May, [facility] [place] [facility] [address] [id number] [place] [address] 16 May, 2014 [facility] [place] [facility] [address] [id number] [place] [address] May, 2014 [facility] [place] [facility] [address] [id number] [place] [address] 16 May, 2014 [facility] [place] [facility] [address] [id number] [place] [address] May, 2014 [facility] [place] [facility] [address] [id number] [place] [address] 16 May, 2014 [facility] [place] [facility] [address] [id number] [place] [address] 16 May, 2014 [facility] [place] [facility] [address] [id number] [place] [address] 16 May, 2014 [facility] [place] [facility] [address] [facility] [id number] [place] [address] May, [facility] [place] [facility] [address] [id number] [place] [address] May, 2014 [facility] [place] [facility] [address] [id number] [place] [address] May, 2014 [facility] [place] [facility] [address] [id number] [place] [address] May, 2014 [facility] [place] [facility] [address] [id number] [place] [address] May, [facility] [place] [facility] [address] [id number] [place] [address] May, [facility] [place] [facility] [address] [id number] [place] [address] Apr, [facility] [place] [facility] [address] [id number] [place] [address] Apr, [facility] [place] [facility] [address] [id number] [place] [address] Apr, [facility] [place] [facility] [address] [id number] [place] [address] Apr, [facility] [place] [facility] [address] [id number] [place] [address] Apr, [facility] [place] [facility] [address] [id number] [place] [address] Apr, [facility] [place] [facility] [address] [id number] [place] [address] Apr, [facility] [place] [facility] [address] [id number] [place] [address] Apr, [facility] [place] [facility] [address] [id number] [place] [address] Apr, [facility] [place] [facility] [address] [id number] [place] [address] Apr, [facility] [place] [facility] [address] [id number] [place] [address] Apr, [facility] [place] [facility] [address] [id number] [place] [address] Apr, [facility] [place] [facility] [address] [id number] [place] [address] Mar, [facility] [place] [facility] [address] [id number] [place] [address] Mar, [facility] [place] [facility] [address] [facility] [id number] [place] [address] Mar, [facility] [place] [facility] [address] [id number] [place] [address] Mar, [facility] [place] [facility] [address] [id number] [place] [address] Mar, [facility] [place] [facility] [address] [id number] [place] [address] Mar, [facility] [place] [facility] [address] [id number] [place] [address] Feb, [facility] [place] [facility] [address] [id number] [place] [address] Feb, [facility] [place] [facility] [address] [id number] [place] [address] Feb, [facility] [place] [facility] [address] [id number] [place] [address] Feb, [facility] [place] [facility] [address] [id number] [place] [address] 14 Jan, 2014 [facility] [place] [facility] [address] [id number] [place] [address] 14 Jan, 2014 [facility] [place] [facility] [address] [id number] [place] [address] 14 Jan, 2014 [facility] [place] [facility] [address] [id number] [place] [address] 14 Jan, 2014 [facility] [place] [facility] [address] [id number] [place] [address] Dec, [facility] [place] [facility] [address] [id number] [place] [address] Dec, [facility] [place] [facility] [address] [facility] [id number] [facility] [place] [address] Dec, [facility] [place] [facility] [address] [id number] [place] [address] Dec, [facility] [place] [facility] [address] [facility] [id number] [place] [address] Nov, [facility] [place] [facility] [address] [facility] [id number] [facility] [place] [address] Nov, [facility] [place] [facility] [address] [id number] [place] [address] Nov, [facility] [place] [facility] [address] [id number] [place] [address] Nov, [facility] [place] [facility] [address] [id number] [place] [address] Nov, [facility] [place] [facility] [address] [facility] [id number] [place] [address] Nov, [facility] [place] [facility] [address] [id number] [place] [address] Nov, [facility] [place] [facility] [address] [id number] [place] [address] Oct, [facility] [place] [facility] [address] [id number] [place] [address] Oct, [facility] [place] [facility] [address] [facility] [id number] [place] [address] Oct, [facility] [place] [facility] [address] [id number] [place] [address] Oct, [facility] [address] [facility] [id number] [place] [address] Oct, [facility] [address] [id number] [place] [address] Oct, [facility] [address] [id number] [place] [address] Oct, [facility] [address] [id number] [place] [address] Sep, [facility] [address] [id number] [place] [address] Sep, [facility] [address] [id number] [place] [address] Sep, [facility] [address] [facility] [id number] [place] [address] Sep, [facility] [address] [id number] [place] [address] Sep, [facility] [address] [id number] [place] [address] Jul, [facility] [address] [id number] [place] [address] Jul, [facility] [address] [id number] [place] [address] Jul, [facility] [address] [id number] [place] [address] Jul, [facility] [address] [id number] [place] [address] Jul, [facility] [address] [id number] [place] [address] Jul, [facility] [address] [id number] [place] [address] Jul, [facility] [address] [id number] [place] [address] Jul, [facility] [address] [id number] [place] [address] Jul, [facility] [address] [facility] [id number] [place] [address] Jul, [facility] [address] [id number] [place] [address] Jul, [facility] [address] [facility] [id number] [place] [address] Jul, [facility] [address] [facility] [id number] [facility] [place] [address] Jun, [facility] [address] [id number] [place] [address] Jun, [facility] [address] [id number] [place] [address] Jun, [facility] [address] [facility] [id number] [place] [address] Jun, [facility] [address] [id number] [place] [address] Jun, [facility] [address] [id number] [place] [address] Jun, [facility] [address] [id number] [place] [address] Jun, [facility] [address] [id number] [place] [address] Jun, [facility] [address] [id number] [place] [address] May, [facility] [address] [id number] [place] [address] May, [facility] [address] [id number] [place] [address] May, [facility] [address] [id number] [place] [address] May, [facility] [address] [id number] [place] [address] May, [facility] [address] [id number] [place] [address] May, [facility] [address] [id number] [place] [address] 18 May, 2013 [facility] [address] [id number] [place] [address] May, [facility] [address] [id number] [place] [address] Apr, [facility] [address] [id number] [place] [address] Apr, [facility] [address] [id number] [place] [address] Apr, [facility] [address] [id number] [place] [address] Apr, [facility] [address] [id number] [place] [address] Mar, [facility] [address] [id number] [place] [address] Mar, [facility] [address] [id number] [place] [address] Mar, [facility] [address] [id number] [place] [address] Feb, [facility] [address] [id number] [place] [address] Feb, [facility] [address] [id number] [place] [address] Feb, [facility] [address] [id number] [place] [address] Feb, [facility] [address] [id number] [place] [address] Feb, [facility] [address] [id number] [place] [address] Feb, [facility] [address] [id number] [place] [address] Jan, [facility] [address] [id number] [place] [address] Jan, [facility] [address] [id number] [place] [address] Jan, [facility] [address] [id number] [place] [address] Jan, [facility] [address] [id number] [place] [address] Jan, [facility] [address] [id number] [place] [address] Jan, [facility] [address] [id number] [place] [address] Jan, [facility] [address] [facility] [id number] [place] [address] Dec, [facility] [address] [id number] [place] [address] Dec, [facility] [address] [id number] [place] [address] Dec, [facility] [address] [id number] [place] [address] Dec, [facility] [address] [id number] [place] [address] Nov, [facility] [address] [id number] [place] [address] Nov, [facility] [address] [id number] [place] [address] Nov, [facility] [address] [id number] [place] [address] Nov, [facility] [address] [id number] [place] [address] Nov, [facility] [address] [id number] [place] [address] Nov, [facility] [address] [id number] [place] [address] Nov, [facility] [address] [id number] [place] [address] Oct, [facility] [address] [id number] [place] [address] Oct, [facility] [address] [facility] [id number] [place] [address] Oct, [facility] [address] [id number] [place] [address] Oct, [facility] [address] [id number] [place] [address] Oct, [facility] [address] [id number] [place] [address] Oct, [facility] [address] [id number] [place] [address] Oct, [facility] [address] [id number] [place] [address] Oct, [facility] [address] [id number] [place] [address] Sep, Suleiman PEREZ [address] [place] [address] [id number] [place] [id number] August, [facility] [address] [id number] [place] [address] August, [facility] [address] [id number] [place] [address] Jul, [facility] [address] [id number] [place] [address] Jul, [facility] [address] [id number] [place] [address] Jul, [facility] [address] [id number] [place] [address] Jul, [facility] [address] [id number] [place] [address] Jul, [facility] [address] [id number] [place] [address] Jul, [facility] [address] [id number] [place] [address] Jul, [facility] [address] [id number] [place] [address] Jun, [facility] [address] [id number] [place] [address] Jun, [facility] [address] [id number] [place] [address] Jun, [facility] [address] [id number] [place] [address] Jun, [facility] [address] [id number] [place] [address] Jun, [facility] [address] [id number] [place] [address] May, [facility] [address] [id number] [place] [address] May, [facility] [address] [id number] [place] [address] May, [facility] [address] [id number] [place] [address] Apr, [facility] [address] [id number] [place] [address] 14 Apr, 2012 [facility] [address] [id number] [place] [address] Apr, [facility] [address] [id number] [place] [address] Mar, [facility] [address] [id number] [place] [address] Mar, [facility] [address] [id number] [place] [address] Mar, [facility] [address] [id number] [place] [address] Mar, [facility] [address] [id number] [place] [address] 10 Mar, 2012 [facility] [address] [id number] [place] [address] Mar, [facility] [address] [id number] [place] [address] Feb, [facility] [address] [id number] [place] [address] Feb, [facility] [address] [id number] [place] [address] Jan, [facility] [address] [id number] [place] [address] Jan, [facility] [address] [id number] [place] [address] Dec, [facility] [address] [id number] [place] [address] Nov, [facility] [address] [id number] [place] [address] Nov, [facility] [address] [id number] [place] [address] Nov, [facility] [address] [id number] [place] [address] Nov, [facility] [address] [id number] [place] [address] Oct, [facility] [address] [id number] [place] [address] Oct, [facility] [address] [id number] [place] [address] Oct, [facility] [address] [id number] [place] [address] Sep, [facility] [address] [id number] [place] [address] Sep, [facility] [address] [id number] [place] [address] Sep, [facility] [address] [id number] [place] [address] August, [facility] [address] [id number] [place] [address] August, [facility] [address] [id number] [place] [address] Jul, [facility] [address] [id number] [place] [address] 24 Jul, 2011 [facility] [address] [id number] [place] [address] Jul, [facility] [address] [id number] [place] [address] Jul, [facility] [address] [id number] [place] [address] Jun, [facility] [address] [id number] [place] [address] May, [facility] [address] [id number] [place] [address] Apr, [facility] [address] [id number] [place] [address] Apr, [facility] [address] [id number] [place] [address] Apr, [facility] [address] [id number] [place] [address] Apr, [facility] [address] [id number] [place] [address] Apr, [facility] [address] [id number] [place] [address] Apr, [facility] [address] [id number] [place] [address] Mar, [facility] [address] [id number] [place] [address] Mar, [facility] [address] [id number] [place] [address] Feb, [facility] [address] [id number] [place] [address] Feb, [facility] [address] [id number] [place] [address] 17 Feb, 2011 [facility] [address] [id number] [place] [address] Feb, [facility] [address] [id number] [place] [address] Jan, [facility] [address] [id number] [place] [address] Jan, [facility] [address] [id number] [place] [address] Jan, [facility] [address] [id number] [place] [address] Jan, [facility] [address] [id number] [place] [address] Nov, [facility] [id number] [place] [address] Mar, [facility] [address] [id number] [place] [address] Mar, [facility] [address] [id number] [place] [address] Feb, [facility] [address] [id number] [place] [address] Feb, [facility] [address] [id number] [place] [address] Jan, [facility] [address] [id number] [place] [address] Jan, [facility] [address] [id number] [place] [address] Sep, [facility] [address] [id number] [place] [address] 16 May, 2009 [facility] [address] [id number] [place] [address] Apr, [facility] [address] [id number] [place] [address] Mar, [facility] [address] [id number] [place] [address] Feb, [facility] [address] [id number] [place] [address] Feb, [facility] [address] [id number] [place] [address] Feb, [facility] [address] [id number] [place] [address] Jan, [facility] [address] [id number] [place] [address] Jan, [facility] [address] [id number] [place] [address] Jan, [facility] [address] [id number] [place] [address] Jan, [facility] [address] [id number] [place] [address] August, IMMUNIZATIONS No Known Immunizations SOCIAL HISTORY Never Assessed REASON FOR VISIT PLAN OF CARE VITAL SIGNS Height 65 in 2013-08-10 Weight 213 lbs 2013-08-10 Temperature 98.5 degrees Fahrenheit 2013-08-10 Heart Rate 88 bpm 2013-08-10 Respiratory Rate 24 2013-08-10 Blood pressure systolic 112 mmHg 2013-08-10 Blood pressure diastolic 68 mmHg 2013-08-10 MEDICATIONS Unknown Medications RESULTS No Results PROCEDURES Procedure Date Ordered Result Body Site GLYCATED HEMOGLOBIN TEST August 10, 2013 INSTRUCTIONS MEDICATIONS ADMINISTERED No Known Medications [...] age 6 Hospitalization History surgery Hospitalization History [facility], innc tient treatment few times for BH
--- OUTSIDE RECORDS SUMMARY | 2019-09-29 10:41 | XMS REPORT ---
Author Author Cameron Estrella Doctor Organization [facility] Address Unknown Phone Unavailable Care Team Providers Care Employment Coordinator Name Role Phone Migration, Doctor Unavailable Unavailable PROBLEMS Type Condition ICD9-CM Code [id number] Code Onset Dates Condition S tatus SNOMED Code Problem Adjustment disorder, unspecified type F43.20 Active 71963512 Problem Reactive airway disease, unspecified asthma justin rity, uncomplicated J45.909 Active 079597700426 Problem Hypertensive retinopathy of both eyes H35.033 Active 1817533 Problem Open-angle glaucoma of both eyes, unspecified glaucoma stage, unspecified open-angle glaucoma type H40.10X0 Acti ve 79830014 Problem Essential hypertension I10 Active 80311421 Problem Obstructive sleep apnea G47.33 Active 90556500 Problem Intermittent explosive disorder F63.81 Active 63472265 Problem Type 2 diabetes mellitus with complication E11.8 Active 86039811 Problem Bipolar disorder, in partial remission, most rec ent episode manic F31.73 Active 49842370 Problem Intermittent explosive disorder in adult F63.81 Active 95266842 Problem Bipolar disorder, unspecified F31.9 Active 33330397 Problem Neuropathy G62.9 Active 128776109 Problem Diabetes E11.9 Active 02662564 Problem Other specified urinary incontinence N39.498 Active 991973992 Problem Depression F32.9 Active 68103010 Problem 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 Active 35683974 Problem Mild intellectual disability F70 A ctive 45961506 Problem Reactive airway disease, mild intermittent, uncomplicated J45.20 Active 785381252 Problem Gastroesophageal reflux disease without esophagitis K21.9 Active 585684674 Problem Other diabetic neurological complication associated with type 2 diabetes mellitus E11.49 Active 253210636 ALLERGIES No Information ENCOUNTERS Encounter Location Date Diagnosis [facility] [address] [id number] [place] [address] August, [facility] [address] [id number] [place] [address] Jul, [facility] [id number] [place] [address] Jul, [facility] [address] [address] Apr, Intermittent explosive disorder in adult F63.81 ; Bipolar disorder, unspecified F31.9 and Mild intellectual disability F70 [facility] [address] [facility] [address] [id number] [address] Apr, Oral health maintenance stat us requiring routine preventive dental care K08.9 [facility] [address] [address] Apr, Type 2 diabetes mellitus with complicati on E11.8 ; History of test for hearing Z92.89 ; Colon cancer screening Z12.11 ; Other specified urinary incontinence N39.498 and Impacted cerumen, right ear H61.21 [place] [address] [address] Apr, Onychomycosis B35.1 ; Other diabetic luc rological complication associated with type 2 diabetes mellitus E11.49 and Tinea pedis of both feet B35.3 [place] [address] [address] Feb, [facility] [address] [address] Jan, [facility] [address] [address] Jan, [facility] [address] [address] Jan, [facility] [address] [address] Jan, [facility] [address] [address] Jan, [facility] [address] [address] Jan, [place] [address] [address] Jan, [place] [address] [address] Jan, Anemia D64.9 [facility] [address] [facility] [address] [id number] [place] [address] 04 Jan, 2019 Dental examination Z01.20 an d Oral health maintenance status requiring routine preventive dental care K08.9 [place] [address] [address] Jan, Onychomycosis B35.1 and Other diabetic n eurological complication associated with type 2 diabetes mellitus E11.49 [place] [address] [address] Jan, Anemia D64.9 [place] [address] [address] Jan, [place] [address] [address] Dec, Urinary tract infection without hematuri a, site unspecified N39.0 [place] [address] [address] Dec, Type 2 diabetes mellitus with complicati on E11.8 ; Urinary tract infection without hematuria, site unspecified N39.0 ; Impacted cerumen of both ears H61.23 ; Encounter for immunization Z23 and Hyponatremia E87.1 [place] [address] [address] Dec, Intermittent explosive disorder in adult F63.81 ; Dysuria R30.0 ; Type 2 diabetes mellitus with complication E11.8 ; Bipolar disorder, unspecified F31.9 and Mild intellectual disability F70 [place] [address] [address] Dec, Dysuria R30.0 [place] [address] [address] Dec, Intermittent explosive disorder in adult F63.81 ; Bipolar disorder, unspecified F31.9 and Mild intellectual disability F70 [facility] [address] [address] Nov, [facility] [address] [address] Oct, [facility] [address] [address] [id number] [address] Oct, Oral health maintenance stat us requiring routine preventive dental care K08.9 [facility] [address] [address] August, Intermittent explosive disorder in adult F63.81 ; Bipolar disorder, unspecified F31.9 and Mild intellectual disability F70 [facility] [address] [id number] August, Dental caries K02.9 [facility] [address] [address] Jul, Onychomycosis B35.1 ; Other diabetic luc rological complication associated with type 2 diabetes mellitus E11.49 and Tinea pedis of both feet B35.3 [facility] [address] [id number] Jul, Caries K02.9 [facility] [address] [address] Jul, Type 2 diabetes mellitus with complicati on E11.8 ; Tobacco abuse Z72.0 and Bipolar disorder, unspecified F31.9 [facility] [address] [address] Jun, [facility] [address] [id number] Jun, Dental examination Z01.20 and Oral healt h maintenance status requiring routine preventive dental care K08.9 [facility] [address] [address] May, Bilateral impacted cerumen H61.23 [facility] [id number] [place] [address] Apr, Bipolar disorder, unspecified F31.9 ; In termittent explosive disorder in adult F63.81 ; Type 2 diabetes mellitus with complication E11.8 ; Tobacco abuse Z72.0 and Colon cancer screening Z12.11 [facility] [id number] [place] [address] Apr, Onychomycosis B35.1 and Other diabetic n eurological complication associated with type 2 diabetes mellitus E11.49 [facility] [address] [address] Apr, Intermittent explosive disorder in adult F63.81 ; Bipolar disorder, unspecified F31.9 and Mild intellectual disability F70 [facility] [id number] [place] [address] Mar, Diabetes E11.9 [facility] [address] [facility] [id number] [address] [place] [address] Jan, Encounter for immunization Z 23 [facility] [address] [address] Jan, Tinea pedis of both feet B35.3 ; Other d iabetic neurological complication associated with type 2 diabetes mellitus E11.49 and Onychomycosis B35.1 [facility] [id number] [place] [address] Nov, Type 2 diabetes mellitus with complicati on E11.8 [facility] [id number] [place] [address] Nov, [facility] [address] [address] Oct, Intermittent explosive disorder in adult F63.81 ; Bipolar disorder, unspecified F31.9 and Mild intellectual disability F70 [facility] [id number] [place] [address] Oct, [facility] [address] [place] [id number] [place] [id number] Oct, Dental examination Z01.20 [place] [address] [address] Oct, Onychomycosis B35.1 and Other diabetic n eurological complication associated with type 2 diabetes mellitus E11.49 [place] [address] [address] Sep, Type 2 diabetes mellitus with complicati on E11.8 and Colon cancer screening Z12.11 [place] [address] [address] 18 Sep, 2017 Type 2 diabetes mellitus with complicati on E11.8 ; Colon cancer screening Z12.11 and Neuropathy G62.9 [place] [address] [address] August, Diabetes E11.9 [facility] [address] [id number] Jul, Dental examination Z01.20 [place] [address] [address] May, Mild intellectual disability F70 [place] [address] [address] May, Mild intellectual disability F70 ; High risk medication use Z79.899 ; Intermittent explosive disorder in adult F63.81 and Bipolar disorder, unspecified F31.9 [place] [address] [address] May, [place] [address] [address] May, [place] [address] [address] Apr, Type 2 diabetes mellitus with complicati on E11.8 ; Mild intellectual disability F70 ; Gastroesophageal reflux disease without esophagitis K21.9 ; Reactive airway disease, mild intermittent, uncomplicated J45.20 and Tobacco abuse Z72.0 [place] [address] [address] 09 Apr, 2017 High risk medication use Z79.899 ; Mild intellectual disability F70 ; Intermittent explosive disorder in adult F63.81 and Bipolar disorder, unspecified F31.9 [facility] [address] [id number] Mar, Encounter for dental exam and cleaning w /o abnormal findings Z01.20 [facility] [address] [id number] 27 Mar, 2017 Dental examination Z01.20 [facility] [address] [address] 12 Jan, 2017 [facility] [address] [address] Jan, [facility] [address] [address] Jan, Mild intellectual disability F70 ; Bipol ar disorder, unspecified F31.9 and Intermittent explosive disorder in adult F63.81 [facility] [address] [address] 02 Jan, 2017 Diabetes E11.9 [facility] [address] [id number] 13 Dec, 2016 Encounter for dental examination and osei aning without abnormal findings Z01.20 [facility] [address] [address] 12 Dec, 2016 Bipolar disorder, unspecified F31.9 ; In termittent explosive disorder in adult F63.81 and Mild intellectual disability F70 [facility] [address] [address] Nov, Diabetes E11.9 [facility] [address] [address] Nov, [facility] [address] [address] Nov, Diabetes E11.9 and Colon cancer screenin g Z12.11 [facility] [id number] [place] [id number] 21 Sep, 2016 Dental examination Z01.20 [facility] [address] [id number] 21 Sep, 2016 Encounter for dental examination and osei aning without abnormal findings Z01.20 [facility] [address] [place] [address] 13 Sep, 2016 Bipolar disorder, unspecified F31.9 [facility] [address] [address] 12 Sep, 2016 Bipolar disorder, unspecified F31.9 [facility] [address] [place] [address] Jul, [facility] [address] [address] Jul, Type 2 diabetes mellitus with complicati on E11.8 [facility] [address] [id number] 15 Jun, 2016 Encounter for dental examination and osei aning without abnormal findings Z01.20 [facility] [address] [id number] [id number] 15 Jun, 2016 Dental examination Z01.20 [facility] [address] [address] 18 Apr, 2016 Sports physical Z02.5 [facility] [address] [place] [address] 14 Mar, 2016 Bipolar disorder, in partial remission, most recent episode manic F31.73 and Intermittent explosive disorder in adult F63.81 [facility] [address] [place] [id number] 08 Mar, 2016 [facility] [address] [place] [id number] 06 Mar, 2016 Diabetes E11.9 [facility] [address] [id number] Feb, Encounter for dental examination and osei aning without abnormal findings Z01.20 [facility] [id number] [place] [address] 22 Dec, 2015 Nocturnal hypoxemia G47.34 and Encounter for immunization Z23 [facility] [address] [address] 15 Dec, 2015 [facility] [address] [address] Dec, [facility] [address] [address] Dec, Bipolar disorder, unspecified F31.9 [facility] [address] [id number] [place] [id number] Oct, Encounter for dental examination and osei aning without abnormal findings Z01.20 [facility] [address] [id number] [id number] Oct, Dental examination Z01.20 [facility] [address] [address] 07 Oct, 2015 Diabetes E11.9 [place] [address] [address] Oct, Diabetes E11.9 ; Reactive airway disease , mild intermittent, uncomplicated J45.20 and Tobacco abuse Z72.0 [place] [address] [address] Sep, Bipolar disorder, unspecified F31.9 and Depression F32.9 [facility] [address] [address] Sep, [place] [address] [address] August, Tinea pedis of both feet B35.3 and DM w/ o complication type II, uncontrolled E11.65 [facility] [address] [address] Jul, [place] [address] [address] Jul, [place] [address] [address] Jul, Obstructive sleep apnea G47.33 [place] [address] [address] Jun, Diabetes E11.9 [place] [address] [address] Jun, [place] [address] [address] Jun, [place] [address] [address] Jun, Bipolar disorder, unspecified F31.9 and Mental retardation F79 [address] [address] Apr, [place] [address] [address] Feb, Diabetes E11.9 ; Encounter for immunizat ion Z23 ; Cough R05 and Nicotine abuse Z72.[address] [address] Jan, Bipolar disorder, unspecified F31.9 and Diabetes mellitus without mention of complication, type II or unspecified type, uncontrolled 250.[address] [address] Jan, [address] [address] Dec, Reactive airway disease 493.90 and Enure sis 788.30 [place] [address] [address] Dec, [address] [address] Nov, [place] [address] [address] Nov, [address] [place] [address] Nov, Annual physical exam V70.0 ; Urinary inc ontinence 788.30 ; Diabetes 250.00 and Hypertension 401.9 [facility] [address] [address] Oct, Diabetes mellitus without mention of com plication, type II or unspecified type, uncontrolled 250.02 [facility] [address] [address] Oct, Diabetes mellitus without mention of com plication, type II or unspecified type, uncontrolled 250.02 [facility] [address] [address] Oct, Diabetes mellitus without mention of com plication, type II or unspecified type, uncontrolled 250.02 [facility] [address] [address] Oct, [facility] [address] [address] Oct, [facility] [address] [address] Oct, Bipolar disorder, unspecified 296.80 [facility] [address] [id number] Sep, Dental examination V72.2 [facility] [address] [address] August, [facility] [address] [id number] August, Dental examination V72.2 [facility] [address] [address] August, [facility] [address] [address] Jul, [facility] [address] [address] Jul, [facility] [address] [address] 17 Jun, 2014 [facility] [address] [facility] [id number] [place] [address] 17 Jun, 2014 [facility] [address] [facility] [id number] [place] [address] 17 Jun, 2014 [facility] [address] [id number] [place] [address] Jun, 2014 [facility] [address] [facility] [id number] [place] [address] May, 2014 [facility] [address] [facility] [id number] [place] [address] May, 2014 [facility] [address] [id number] [place] [address] 16 May, 2014 [facility] [address] [id number] [place] [address] 16 May, 2014 [facility] [address] [id number] [place] [address] 16 May, 2014 [facility] [address] [id number] [place] [address] 16 May, 2014 [facility] [address] [id number] [place] [address] 16 May, 2014 [facility] [address] [id number] [place] [address] 16 May, 2014 [facility] [address] [id number] [place] [address] 16 May, 2014 [facility] [address] [facility] [id number] [place] [address] 16 May, 2014 [facility] [address] [id number] [place] [address] 16 May, 2014 [facility] [address] [id number] [place] [address] 16 May, 2014 [facility] [address] [id number] [place] [address] May, [facility] [address] [facility] [id number] [place] [address] May, [facility] [address] [facility] [id number] [place] [address] May, [facility] [address] [id number] [place] [address] Apr, [facility] [address] [id number] [place] [address] Apr, [facility] [address] [facility] [id number] [place] [address] Apr, [facility] [address] [id number] [place] [address] Apr, [facility] [address] [id number] [place] [address] Apr, [facility] [address] [id number] [place] [address] Apr, [facility] [address] [id number] [place] [address] Apr, [facility] [address] [id number] [place] [address] Apr, [facility] [address] [id number] [place] [address] Apr, [facility] [address] [id number] [place] [address] Apr, [facility] [address] [facility] [id number] [place] [address] Apr, [facility] [address] [id number] [place] [address] Apr, [facility] [address] [id number] [place] [address] Mar, [facility] [address] [id number] [place] [address] Mar, [facility] [address] [id number] [place] [address] 10 Mar, 2014 [facility] [address] [facility] [id number] [place] [address] 10 Mar, 2014 [facility] [address] [id number] [place] [address] Mar, [facility] [address] [id number] [place] [address] Mar, [facility] [address] [id number] [place] [address] Feb, [facility] [address] [id number] [place] [address] Feb, [facility] [address] [id number] [place] [address] Feb, [facility] [address] [id number] [place] [address] Feb, [facility] [address] [id number] [place] [address] 14 Jan, 2014 [facility] [address] [id number] [place] [address] 14 Jan, 2014 [facility] [address] [id number] [place] [address] 14 Jan, 2014 [facility] [address] [id number] [place] [address] 14 Jan, 2014 [facility] [address] [id number] [place] [address] 22 Dec, 2013 [facility] [address] [id number] [place] [address] 22 Dec, 2013 [facility] [address] [id number] [place] [address] 15 Dec, 2013 [facility] [address] [id number] [place] [address] 15 Dec, 2013 [facility] [address] [id number] [place] [address] Nov, [facility] [address] [id number] [place] [address] Nov, [facility] [address] [facility] [id number] [place] [address] Nov, [facility] [address] [facility] [id number] [place] [address] Nov, [facility] [address] [id number] [place] [address] Nov, [facility] [address] [facility] [id number] [place] [address] Nov, [facility] [address] [facility] [id number] [place] [address] Nov, [facility] [address] [id number] [place] [address] Oct, [facility] [address] [id number] [place] [address] Oct, [facility] [address] [id number] [place] [address] Oct, [facility] [address] [id number] [place] [address] Oct, [facility] [address] [id number] [place] [address] Oct, [facility] [address] [id number] [place] [address] Oct, [facility] [address] [id number] [place] [address] Oct, [facility] [address] [facility] [id number] [place] [address] Sep, [facility] [address] [id number] [place] [address] Sep, [facility] [address] [id number] [place] [address] Sep, [facility] [address] [id number] [place] [address] Sep, [facility] [address] [facility] [id number] [place] [address] Sep, [facility] [address] [facility] [id number] [place] [address] Jul, [facility] [address] [id number] [place] [address] Jul, [facility] [address] [id number] [place] [address] Jul, [facility] [address] [facility] [id number] [place] [address] Jul, [facility] [address] [id number] [place] [address] Jul, [facility] [address] [id number] [place] [address] Jul, [facility] [facility] [address] [id number] [place] [address] Jul, [facility] [place] [facility] [address] [id number] [place] [address] Jul, [facility] [place] [facility] [address] [id number] [place] [address] Jul, [facility] [place] [facility] [address] [id number] [place] [address] Jul, [facility] [place] [facility] [address] [id number] [place] [address] Jul, [facility] [place] [facility] [address] [id number] [place] [address] Jul, [facility] [place] [facility] [address] [id number] [place] [address] Jun, [facility] [place] [facility] [address] [id number] [place] [address] Jun, [facility] [place] [facility] [address] [id number] [place] [address] Jun, [facility] [place] [facility] [address] [id number] [place] [address] Jun, [facility] [place] [facility] [address] [facility] [id number] [place] [address] Jun, [facility] [place] [facility] [address] [id number] [place] [address] Jun, [facility] [place] [facility] [address] [id number] [place] [address] Jun, [facility] [place] [facility] [address] [id number] [place] [address] Jun, [facility] [place] [facility] [address] [id number] [place] [address] May, [facility] [place] [facility] [address] [id number] [place] [address] May, [facility] [place] [facility] [address] [id number] [place] [address] May, [facility] [place] [facility] [address] [id number] [place] [address] May, [facility] [place] [facility] [address] [id number] [place] [address] May, [facility] [place] [facility] [address] [id number] [place] [address] May, [facility] [place] [facility] [address] [id number] [place] [address] May, [facility] [place] [facility] [address] [id number] [place] [address] May, [facility] [place] [facility] [address] [id number] [place] [address] Apr, [facility] [place] [facility] [address] [id number] [place] [address] Apr, [facility] [place] [facility] [address] [id number] [place] [address] Apr, [facility] [place] [facility] [address] [id number] [place] [address] Apr, [facility] [place] [facility] [address] [id number] [place] [address] Mar, [facility] [place] [facility] [address] [id number] [place] [address] Mar, [facility] [place] [facility] [address] [id number] [place] [address] Mar, [facility] [place] [facility] [address] [id number] [place] [address] Feb, [facility] [place] [facility] [address] [id number] [place] [address] Feb, [facility] [place] [facility] [address] [id number] [place] [address] Feb, [facility] [place] [facility] [address] [id number] [place] [address] Feb, [facility] [place] [facility] [address] [id number] [place] [address] Feb, [facility] [place] [facility] [address] [id number] [place] [address] Feb, [facility] [place] [facility] [address] [id number] [place] [address] Jan, [facility] [place] [facility] [address] [id number] [place] [address] Jan, [facility] [place] [facility] [address] [id number] [place] [address] Jan, [facility] [place] [facility] [address] [id number] [place] [address] Jan, [facility] [place] [facility] [address] [id number] [place] [address] Jan, [facility] [place] [facility] [address] [id number] [place] [address] Jan, [facility] [place] [facility] [address] [id number] [place] [address] Jan, [facility] [place] [facility] [address] [id number] [place] [address] Dec, 2012 [facility] [place] [facility] [address] [id number] [place] [address] 16 Dec, 2012 [facility] [place] [facility] [address] [facility] [id number] [place] [address] Dec, [facility] [place] [facility] [address] [id number] [place] [address] Dec, [facility] [place] [facility] [address] [id number] [place] [address] Nov, [facility] [place] [facility] [address] [facility] [id number] [place] [address] Nov, [facility] [place] [facility] [address] [id number] [place] [address] Nov, [facility] [place] [facility] [address] [id number] [place] [address] Nov, [facility] [place] [facility] [address] [id number] [place] [address] Nov, [facility] [place] [facility] [address] [id number] [place] [address] Nov, [facility] [place] [facility] [address] [id number] [place] [address] Nov, [facility] [place] [facility] [address] [id number] [place] [address] Oct, [facility] [place] [facility] [address] [id number] [place] [address] Oct, [facility] [place] [facility] [address] [facility] [id number] [place] [address] Oct, [facility] [place] [facility] [address] [id number] [place] [address] Oct, [facility] [place] [facility] [address] [id number] [place] [address] Oct, [facility] [place] [facility] [address] [id number] [place] [address] Oct, [facility] [place] [facility] [address] [id number] [place] [address] Oct, [facility] [place] [facility] [address] [id number] [place] [address] Oct, [facility] [place] [facility] [address] [id number] [place] [address] Sep, [facility] [address] [facility] [id number] [place] [id number] August, [facility] [place] [facility] [address] [id number] [place] [address] August, [facility] [place] [facility] [address] [id number] [place] [address] Jul, [facility] [place] [facility] [address] [id number] [place] [address] Jul, [facility] [place] [facility] [address] [id number] [place] [address] Jul, [facility] [place] [facility] [address] [id number] [place] [address] Jul, [facility] [place] [facility] [address] [id number] [place] [address] Jul, [facility] [place] [facility] [address] [id number] [place] [address] Jul, [facility] [place] [facility] [address] [id number] [place] [address] 16 Jul, 2012 [facility] [place] [facility] [address] [id number] [place] [address] Jun, [facility] [place] [facility] [address] [id number] [place] [address] 18 Jun, 2012 [facility] [place] [facility] [address] [id number] [place] [address] Jun, [facility] [place] [facility] [address] [id number] [place] [address] 04 Jun, 2012 [facility] [place] [facility] [address] [id number] [place] [address] Jun, [facility] [place] [facility] [address] [id number] [place] [address] May, [facility] [place] [facility] [address] [id number] [place] [address] May, [facility] [place] [facility] [address] [id number] [place] [address] May, [facility] [place] [facility] [address] [id number] [place] [address] Apr, [facility] [place] [facility] [address] [id number] [place] [address] Apr, [facility] [place] [facility] [address] [id number] [place] [address] Apr, [facility] [place] [facility] [address] [id number] [place] [address] Mar, [facility] [place] [facility] [id number] [place] [address] Mar, [facility] [place] [facility] [address] [id number] [place] [address] Mar, [facility] [place] [facility] [id number] [place] [address] Mar, [facility] [place] [facility] [address] [id number] [place] [address] Mar, [facility] [place] [facility] [id number] [place] [address] Mar, [facility] [place] [facility] [address] [id number] [place] [address] Feb, [facility] [place] [facility] [id number] [place] [address] Feb, [facility] [place] [facility] [address] [id number] [place] [address] Jan, [facility] [place] [facility] [id number] [place] [address] Jan, [facility] [place] [facility] [address] [facility] [id number] [place] [address] Dec, [facility] [place] [facility] [address] [id number] [place] [address] Nov, [facility] [place] [facility] [address] [id number] [place] [address] Nov, [facility] [place] [facility] [address] [id number] [place] [address] Nov, [facility] [place] [facility] [address] [id number] [place] [address] Nov, [facility] [place] [facility] [address] [id number] [place] [address] Oct, [facility] [place] [facility] [address] [id number] [place] [address] Oct, [facility] [place] [facility] [address] [id number] [place] [address] Oct, [facility] [place] [facility] [address] [id number] [place] [address] Sep, [facility] [place] [facility] [address] [id number] [place] [address] Sep, [facility] [place] [facility] [address] [id number] [place] [address] Sep, [facility] [place] [facility] [address] [id number] [place] [address] August, [facility] [place] [facility] [address] [id number] [place] [address] August, [facility] [place] [facility] [address] [id number] [place] [address] Jul, [facility] [place] [facility] [address] [id number] [place] [address] 24 Jul, 2011 [facility] [place] [facility] [address] [id number] [place] [address] Jul, [facility] [place] [facility] [address] [id number] [place] [address] Jul, [facility] [place] [facility] [address] [id number] [place] [address] Jun, [facility] [place] [facility] [address] [id number] [place] [address] May, [facility] [place] [facility] [address] [id number] [place] [address] Apr, [facility] [place] [facility] [id number] [place] [address] Apr, [facility] [place] [facility] [address] [id number] [place] [address] Apr, [facility] [place] [facility] [id number] [place] [address] Apr, [facility] [place] [facility] [address] [id number] [place] [address] Apr, [facility] [place] [facility] [id number] [place] [address] Apr, [facility] [place] [facility] [address] [id number] [place] [address] Mar, [facility] [place] [facility] [id number] [place] [address] Mar, [facility] [place] [facility] [address] [id number] [place] [address] Feb, [facility] [place] [facility] [id number] [place] [address] Feb, [facility] [place] [facility] [address] [id number] [place] [address] Feb, [facility] [place] [facility] [address] [id number] [place] [address] Feb, [facility] [place] [facility] [address] [id number] [place] [address] Jan, [facility] [place] [facility] [address] [id number] [place] [address] Jan, [facility] [place] [facility] [address] [id number] [place] [address] 18 Jan, 2011 [facility] [place] [facility] [address] [id number] [place] [address] 18 Jan, 2011 [facility] [place] [facility] [address] [id number] [place] [address] Nov, [facility] [place] [facility] [address] [id number] [place] [address] Mar, [facility] [place] [facility] [address] [id number] [place] [address] Mar, [facility] [place] [facility] [address] [id number] [place] [address] Feb, [facility] [place] [facility] [address] [id number] [place] [address] Feb, [facility] [place] [facility] [address] [id number] [place] [address] Jan, [facility] [place] [facility] [address] [id number] [place] [address] Jan, [facility] [place] [facility] [address] [id number] [place] [address] Sep, [facility] [place] [facility] [address] [id number] [place] [address] May, [facility] [place] [facility] [address] [id number] [place] [address] Apr, [facility] [place] [facility] [address] [id number] [place] [address] Mar, [facility] [place] [facility] [address] [id number] [place] [address] 15 Feb, 2009 [facility] [place] [facility] [address] [id number] [place] [address] Feb, [facility] [place] [facility] [address] [id number] [place] [address] Feb, [facility] [place] [facility] [address] [id number] [place] [address] 22 Jan, 2009 [facility] [place] [facility] [address] [id number] [place] [address] 13 Jan, 2009 [facility] [address] [id number] [place] [address] Jan, [facility] [address] [id number] [place] [address] Jan, [facility] [address] [id number] [place] [address] August, IMMUNIZATIONS No Known Immunizations SOCIAL HISTORY Never Assessed REASON FOR VISIT PLAN OF CARE VITAL SIGNS Height 65 in 2013-07-23 Weight 210.6 lbs 2013-07-23 Heart Rate 80 bpm 2013-07-23 Blood pressure systolic 94 mmHg 2013-07-23 Blood pressure diastolic 68 mmHg 2013-07-23 MEDICATIONS Unknown Medications RESULTS No Results PROCEDURES [...] age 6 Hospitalization History surgery Hospitalization History [facility], indeann webber treatment few times for BH
--- OUTSIDE RECORDS SUMMARY | 2019-09-29 10:41 | XMS REPORT ---
Author Author Cameron Estrella Doctor Organization [facility] Address Unknown Phone Unavailable Care Team Providers Care Technical Inspector Name Role Phone Migration, Doctor Unavailable Unavailable PROBLEMS Type Condition ICD9-CM Code [id number] Code Onset Dates Condition S tatus SNOMED Code Problem Adjustment disorder, unspecified type F43.20 Active 48072600 Problem Reactive airway disease, unspecified asthma justin rity, uncomplicated J45.909 Active 201328070254 Problem Hypertensive retinopathy of both eyes H35.033 Active 0344551 Problem Open-angle glaucoma of both eyes, unspecified glaucoma stage, unspecified open-angle glaucoma type H40.10X0 Acti ve 19748160 Problem Essential hypertension I10 Active 68609306 Problem Obstructive sleep apnea G47.33 Active 22953740 Problem Intermittent explosive disorder F63.81 Active 17252985 Problem Type 2 diabetes mellitus with complication E11.8 Active 71633154 Problem Bipolar disorder, in partial remission, most rec ent episode manic F31.73 Active 20191953 Problem Intermittent explosive disorder in adult F63.81 Active 30788474 Problem Bipolar disorder, unspecified F31.9 Active 51076121 Problem Neuropathy G62.9 Active 303301383 Problem Diabetes E11.9 Active 22721952 Problem Other specified urinary incontinence N39.498 Active 791846345 Problem Depression F32.9 Active 35426330 Problem 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 Active 23611563 Problem Mild intellectual disability F70 A ctive 54500922 Problem Reactive airway disease, mild intermittent, uncomplicated J45.20 Active 844049060 Problem Gastroesophageal reflux disease without esophagitis K21.9 Active 785479878 Problem Other diabetic neurological complication associated with type 2 diabetes mellitus E11.49 Active 348789023 ALLERGIES No Information ENCOUNTERS Encounter Location Date Diagnosis [facility] [address] [id number] [place] [address] August, [facility] [address] [id number] [place] [address] Jul, [facility] [id number] [place] [address] Jul, [facility] [address] [address] Apr, Intermittent explosive disorder in adult F63.81 ; Bipolar disorder, unspecified F31.9 and Mild intellectual disability F70 [facility] [address] [facility] [address] [id number] [address] Apr, Oral health maintenance stat us requiring routine preventive dental care K08.9 [facility] [address] [address] Apr, Type 2 diabetes mellitus with complicati on E11.8 ; History of test for hearing Z92.89 ; Colon cancer screening Z12.11 ; Other specified urinary incontinence N39.498 and Impacted cerumen, right ear H61.21 [place] [address] [address] Apr, Onychomycosis B35.1 ; Other diabetic luc rological complication associated with type 2 diabetes mellitus E11.49 and Tinea pedis of both feet B35.3 [place] [address] [address] Feb, [facility] [address] [address] Jan, [facility] [address] [address] Jan, [facility] [address] [address] Jan, [facility] [address] [address] Jan, [facility] [address] [address] Jan, [facility] [address] [address] Jan, [place] [address] [address] Jan, [place] [address] [address] Jan, Anemia D64.9 [facility] [address] [facility] [address] [id number] [place] [address] 04 Jan, 2019 Dental examination Z01.20 an d Oral health maintenance status requiring routine preventive dental care K08.9 [place] [address] [address] Jan, Onychomycosis B35.1 and Other diabetic n eurological complication associated with type 2 diabetes mellitus E11.49 [place] [address] [address] Jan, Anemia D64.9 [place] [address] [address] Jan, [place] [address] [address] Dec, Urinary tract infection without hematuri a, site unspecified N39.0 [place] [address] [address] Dec, Type 2 diabetes mellitus with complicati on E11.8 ; Urinary tract infection without hematuria, site unspecified N39.0 ; Impacted cerumen of both ears H61.23 ; Encounter for immunization Z23 and Hyponatremia E87.1 [place] [address] [address] Dec, Intermittent explosive disorder in adult F63.81 ; Dysuria R30.0 ; Type 2 diabetes mellitus with complication E11.8 ; Bipolar disorder, unspecified F31.9 and Mild intellectual disability F70 [place] [address] [address] Dec, Dysuria R30.0 [place] [address] [address] Dec, Intermittent explosive disorder in adult F63.81 ; Bipolar disorder, unspecified F31.9 and Mild intellectual disability F70 [facility] [address] [address] Nov, [facility] [address] [address] Oct, [facility] [address] [address] [id number] [place] [address] Oct, Oral health maintenance stat us requiring routine preventive dental care K08.9 [facility] [address] [address] August, Intermittent explosive disorder in adult F63.81 ; Bipolar disorder, unspecified F31.9 and Mild intellectual disability F70 [facility] [address] [id number] August, Dental caries K02.9 [facility] [address] [address] Jul, Onychomycosis B35.1 ; Other diabetic luc rological complication associated with type 2 diabetes mellitus E11.49 and Tinea pedis of both feet B35.3 [facility] [address] [id number] Jul, Caries K02.9 [facility] [address] [address] Jul, Type 2 diabetes mellitus with complicati on E11.8 ; Tobacco abuse Z72.0 and Bipolar disorder, unspecified F31.9 [facility] [address] [address] Jun, [facility] [address] [id number] Jun, Dental examination Z01.20 and Oral healt h maintenance status requiring routine preventive dental care K08.9 [facility] [address] [address] May, Bilateral impacted cerumen H61.23 [facility] [id number] [place] [address] Apr, Bipolar disorder, unspecified F31.9 ; In termittent explosive disorder in adult F63.81 ; Type 2 diabetes mellitus with complication E11.8 ; Tobacco abuse Z72.0 and Colon cancer screening Z12.11 [facility] [id number] [place] [address] Apr, Onychomycosis B35.1 and Other diabetic n eurological complication associated with type 2 diabetes mellitus E11.49 [facility] [address] [address] Apr, Intermittent explosive disorder in adult F63.81 ; Bipolar disorder, unspecified F31.9 and Mild intellectual disability F70 [facility] [id number] [place] [address] Mar, Diabetes E11.9 [facility] [address] [facility] [id number] [place] [address] Jan, Encounter for immunization Z 23 [facility] [address] [address] Jan, Tinea pedis of both feet B35.3 ; Other d iabetic neurological complication associated with type 2 diabetes mellitus E11.49 and Onychomycosis B35.1 [facility] [id number] [place] [address] Nov, Type 2 diabetes mellitus with complicati on E11.8 [facility] [id number] [place] [address] Nov, [facility] [address] [address] Oct, Intermittent explosive disorder in adult F63.81 ; Bipolar disorder, unspecified F31.9 and Mild intellectual disability F70 [facility] [id number] [place] [address] Oct, [facility] [address] [id number] [place] [id number] Oct, Dental examination Z01.20 [place] [address] [address] Oct, Onychomycosis B35.1 and Other diabetic n eurological complication associated with type 2 diabetes mellitus E11.49 [place] [address] [address] Sep, Type 2 diabetes mellitus with complicati on E11.8 and Colon cancer screening Z12.11 [place] [address] [address] 18 Sep, 2017 Type 2 diabetes mellitus with complicati on E11.8 ; Colon cancer screening Z12.11 and Neuropathy G62.9 [place] [address] [address] August, Diabetes E11.9 [facility] [address] [id number] Jul, Dental examination Z01.20 [place] [address] [address] May, Mild intellectual disability F70 [place] [address] [address] May, Mild intellectual disability F70 ; High risk medication use Z79.899 ; Intermittent explosive disorder in adult F63.81 and Bipolar disorder, unspecified F31.9 [place] [address] [address] May, [place] [address] [address] May, [place] [address] [address] Apr, Type 2 diabetes mellitus with complicati on E11.8 ; Mild intellectual disability F70 ; Gastroesophageal reflux disease without esophagitis K21.9 ; Reactive airway disease, mild intermittent, uncomplicated J45.20 and Tobacco abuse Z72.0 [place] [address] [address] 09 Apr, 2017 High risk medication use Z79.899 ; Mild intellectual disability F70 ; Intermittent explosive disorder in adult F63.81 and Bipolar disorder, unspecified F31.9 [facility] [address] [id number] Mar, Encounter for dental exam and cleaning w /o abnormal findings Z01.20 [facility] [address] [id number] 27 Mar, 2017 Dental examination Z01.20 [facility] [address] [address] 12 Jan, 2017 [facility] [address] [address] Jan, [facility] [address] [address] Jan, Mild intellectual disability F70 ; Bipol ar disorder, unspecified F31.9 and Intermittent explosive disorder in adult F63.81 [facility] [address] [address] 02 Jan, 2017 Diabetes E11.9 [facility] [address] [id number] 13 Dec, 2016 Encounter for dental examination and osei aning without abnormal findings Z01.20 [facility] [address] [address] 12 Dec, 2016 Bipolar disorder, unspecified F31.9 ; In termittent explosive disorder in adult F63.81 and Mild intellectual disability F70 [facility] [address] [address] Nov, Diabetes E11.9 [facility] [address] [address] Nov, [facility] [address] [address] Nov, Diabetes E11.9 and Colon cancer screenin g Z12.11 [facility] [id number] [place] [id number] 21 Sep, 2016 Dental examination Z01.20 [facility] [address] [id number] 21 Sep, 2016 Encounter for dental examination and osei aning without abnormal findings Z01.20 [facility] [address] [place] [address] 13 Sep, 2016 Bipolar disorder, unspecified F31.9 [facility] [address] [address] 12 Sep, 2016 Bipolar disorder, unspecified F31.9 [facility] [address] [place] [address] Jul, [facility] [address] [address] Jul, Type 2 diabetes mellitus with complicati on E11.8 [facility] [address] [id number] 15 Jun, 2016 Encounter for dental examination and osei aning without abnormal findings Z01.20 [facility] [address] [facility] [address] [id number] [id number] 15 Jun, 2016 Dental examination Z01.20 [facility] [address] [address] 18 Apr, 2016 Sports physical Z02.5 [facility] [address] [place] [address] 14 Mar, 2016 Bipolar disorder, in partial remission, most recent episode manic F31.73 and Intermittent explosive disorder in adult F63.81 [facility] [address] [place] [id number] 08 Mar, 2016 [facility] [address] [place] [id number] 06 Mar, 2016 Diabetes E11.9 [facility] [address] [id number] Feb, Encounter for dental examination and osei aning without abnormal findings Z01.20 [facility] [id number] [place] [address] 22 Dec, 2015 Nocturnal hypoxemia G47.34 and Encounter for immunization Z23 [facility] [address] [address] 15 Dec, 2015 [facility] [address] [address] Dec, [facility] [address] [address] Dec, Bipolar disorder, unspecified F31.9 [facility] [address] [id number] [place] [id number] Oct, Encounter for dental examination and osei aning without abnormal findings Z01.20 [facility] [address] [facility] [address] [id number] [id number] Oct, Dental examination Z01.20 [facility] [address] [address] 07 Oct, 2015 Diabetes E11.9 [place] [address] [address] Oct, Diabetes E11.9 ; Reactive airway disease , mild intermittent, uncomplicated J45.20 and Tobacco abuse Z72.0 [place] [address] [address] Sep, Bipolar disorder, unspecified F31.9 and Depression F32.9 [facility] [address] [address] Sep, [place] [address] [address] August, Tinea pedis of both feet B35.3 and DM w/ o complication type II, uncontrolled E11.65 [facility] [address] [address] Jul, [place] [address] [address] Jul, [place] [address] [address] Jul, Obstructive sleep apnea G47.33 [place] [address] [address] Jun, Diabetes E11.9 [place] [address] [address] Jun, [place] [address] [address] Jun, [place] [address] [address] Jun, Bipolar disorder, unspecified F31.9 and Mental retardation F79 [address] [address] Apr, [place] [address] [address] Feb, Diabetes E11.9 ; Encounter for immunizat ion Z23 ; Cough R05 and Nicotine abuse Z72.[address] [address] Jan, Bipolar disorder, unspecified F31.9 and Diabetes mellitus without mention of complication, type II or unspecified type, uncontrolled 250.[address] [address] Jan, [address] [address] Dec, Reactive airway disease 493.90 and Enure sis 788.30 [place] [address] [address] Dec, [address] [address] Nov, [place] [address] [address] Nov, [address] [place] [address] Nov, Annual physical exam V70.0 ; Urinary inc ontinence 788.30 ; Diabetes 250.00 and Hypertension 401.9 [facility] [address] [address] Oct, Diabetes mellitus without mention of com plication, type II or unspecified type, uncontrolled 250.02 [facility] [address] [address] Oct, Diabetes mellitus without mention of com plication, type II or unspecified type, uncontrolled 250.02 [facility] [address] [address] Oct, Diabetes mellitus without mention of com plication, type II or unspecified type, uncontrolled 250.02 [facility] [address] [address] Oct, [facility] [address] [address] Oct, [facility] [address] [address] Oct, Bipolar disorder, unspecified 296.80 [facility] [address] [id number] Sep, Dental examination V72.2 [facility] [address] [address] August, [facility] [address] [id number] August, Dental examination V72.2 [facility] [address] [address] August, [facility] [address] [address] Jul, [facility] [address] [address] Jul, [facility] [address] [address] 17 Jun, 2014 [facility] [address] [facility] [id number] [place] [address] 17 Jun, 2014 [facility] [address] [facility] [id number] [place] [address] 17 Jun, 2014 [facility] [address] [id number] [place] [address] Jun, 2014 [facility] [address] [facility] [id number] [place] [address] May, 2014 [facility] [address] [facility] [id number] [place] [address] May, 2014 [facility] [address] [id number] [place] [address] 16 May, 2014 [facility] [address] [id number] [place] [address] 16 May, 2014 [facility] [address] [id number] [place] [address] 16 May, 2014 [facility] [address] [id number] [place] [address] 16 May, 2014 [facility] [address] [id number] [place] [address] 16 May, 2014 [facility] [address] [id number] [place] [address] 16 May, 2014 [facility] [address] [id number] [place] [address] 16 May, 2014 [facility] [address] [facility] [id number] [place] [address] 16 May, 2014 [facility] [address] [id number] [place] [address] 16 May, 2014 [facility] [address] [id number] [place] [address] 16 May, 2014 [facility] [address] [id number] [place] [address] May, [facility] [address] [facility] [id number] [place] [address] May, [facility] [address] [facility] [id number] [place] [address] May, [facility] [address] [id number] [facility] [place] [address] Apr, [facility] [address] [id number] [facility] [place] [address] Apr, [facility] [address] [facility] [id number] [facility] [place] [address] Apr, [facility] [address] [id number] [place] [address] Apr, [facility] [address] [id number] [place] [address] Apr, [facility] [address] [id number] [place] [address] Apr, [facility] [address] [id number] [place] [address] Apr, [facility] [address] [id number] [place] [address] Apr, [facility] [address] [id number] [place] [address] Apr, [facility] [address] [id number] [place] [address] Apr, [facility] [address] [facility] [id number] [place] [address] Apr, [facility] [address] [id number] [place] [address] Apr, [facility] [address] [id number] [place] [address] Mar, [facility] [address] [id number] [place] [address] Mar, [facility] [address] [id number] [facility] [place] [address] 10 Mar, 2014 [facility] [address] [facility] [id number] [place] [address] 10 Mar, 2014 [facility] [address] [id number] [place] [address] Mar, [facility] [address] [id number] [place] [address] Mar, [facility] [address] [id number] [place] [address] Feb, [facility] [address] [id number] [place] [address] Feb, [facility] [address] [id number] [place] [address] Feb, [facility] [address] [id number] [place] [address] Feb, [facility] [address] [id number] [place] [address] 14 Jan, 2014 [facility] [address] [id number] [place] [address] 14 Jan, 2014 [facility] [address] [id number] [place] [address] 14 Jan, 2014 [facility] [address] [id number] [place] [address] 14 Jan, 2014 [facility] [address] [id number] [place] [address] 22 Dec, 2013 [facility] [address] [id number] [place] [address] 22 Dec, 2013 [facility] [address] [id number] [place] [address] 15 Dec, 2013 [facility] [address] [id number] [place] [address] 15 Dec, 2013 [facility] [address] [id number] [place] [address] Nov, [facility] [address] [id number] [place] [address] Nov, [facility] [address] [facility] [id number] [place] [address] Nov, [facility] [address] [facility] [id number] [place] [address] Nov, [facility] [address] [id number] [place] [address] Nov, [facility] [address] [facility] [id number] [place] [address] Nov, [facility] [address] [facility] [id number] [place] [address] Nov, [facility] [address] [id number] [place] [address] Oct, [facility] [address] [id number] [place] [address] Oct, [facility] [address] [id number] [place] [address] Oct, [facility] [address] [id number] [place] [address] Oct, [facility] [address] [id number] [place] [address] Oct, [facility] [address] [id number] [place] [address] Oct, [facility] [address] [id number] [place] [address] Oct, [facility] [address] [facility] [id number] [place] [address] Sep, [facility] [address] [id number] [place] [address] Sep, [facility] [address] [id number] [place] [address] Sep, [facility] [address] [id number] [place] [address] Sep, [facility] [address] [facility] [id number] [place] [address] Sep, [facility] [address] [facility] [id number] [facility] [place] [address] Jul, [facility] [address] [id number] [place] [address] Jul, [facility] [address] [id number] [facility] [place] [address] Jul, [facility] [address] [facility] [id number] [place] [address] Jul, [facility] [address] [id number] [place] [address] Jul, [facility] [address] [id number] [place] [address] Jul, [facility] [address] [id number] [place] [address] Jul, [facility] [place] [facility] [address] [id number] [place] [address] Jul, [facility] [place] [facility] [address] [id number] [place] [address] Jul, [facility] [place] [facility] [address] [id number] [place] [address] Jul, [facility] [place] [facility] [address] [id number] [place] [address] Jul, [facility] [place] [facility] [address] [id number] [place] [address] Jul, [facility] [place] [facility] [address] [id number] [place] [address] Jun, [facility] [place] [facility] [address] [id number] [place] [address] Jun, [facility] [place] [facility] [address] [id number] [place] [address] Jun, [facility] [place] [facility] [address] [id number] [facility] [place] [address] Jun, [facility] [place] [facility] [address] [facility] [id number] [place] [address] Jun, [facility] [place] [facility] [address] [id number] [place] [address] Jun, [facility] [place] [facility] [address] [id number] [place] [address] Jun, [facility] [place] [facility] [address] [id number] [place] [address] Jun, [facility] [place] [facility] [address] [id number] [place] [address] May, [facility] [place] [facility] [address] [id number] [place] [address] May, [facility] [place] [facility] [address] [id number] [place] [address] May, [facility] [place] [facility] [address] [id number] [place] [address] May, [facility] [place] [facility] [address] [id number] [place] [address] May, [facility] [place] [facility] [address] [id number] [place] [address] May, [facility] [place] [facility] [address] [id number] [place] [address] May, [facility] [place] [facility] [address] [id number] [place] [address] May, [facility] [place] [facility] [address] [id number] [place] [address] Apr, [facility] [place] [facility] [address] [id number] [place] [address] Apr, [facility] [place] [facility] [address] [id number] [place] [address] Apr, [facility] [place] [facility] [address] [id number] [place] [address] Apr, [facility] [place] [facility] [address] [id number] [place] [address] Mar, [facility] [place] [facility] [address] [id number] [place] [address] Mar, [facility] [place] [facility] [address] [id number] [place] [address] Mar, [facility] [place] [facility] [address] [id number] [place] [address] Feb, [facility] [place] [facility] [address] [id number] [place] [address] Feb, [facility] [place] [facility] [address] [id number] [place] [address] Feb, [facility] [place] [facility] [address] [id number] [place] [address] Feb, [facility] [place] [facility] [address] [id number] [place] [address] Feb, [facility] [place] [facility] [address] [id number] [place] [address] Feb, [facility] [place] [facility] [address] [id number] [place] [address] Jan, [facility] [place] [facility] [address] [id number] [place] [address] Jan, [facility] [place] [facility] [address] [id number] [place] [address] Jan, [facility] [place] [facility] [address] [id number] [place] [address] Jan, [facility] [place] [facility] [address] [id number] [place] [address] Jan, [facility] [place] [facility] [address] [id number] [place] [address] Jan, [facility] [place] [facility] [address] [id number] [place] [address] Jan, [facility] [place] [facility] [address] [id number] [place] [address] Dec, 2012 [facility] [place] [facility] [address] [id number] [facility] [place] [address] 16 Dec, 2012 [facility] [place] [facility] [address] [facility] [id number] [facility] [place] [address] Dec, [facility] [place] [facility] [address] [id number] [place] [address] Dec, [facility] [place] [facility] [address] [id number] [place] [address] Nov, [facility] [place] [facility] [address] [facility] [id number] [facility] [place] [address] Nov, [facility] [place] [facility] [address] [id number] [place] [address] Nov, [facility] [place] [facility] [address] [id number] [place] [address] Nov, [facility] [place] [facility] [address] [id number] [place] [address] Nov, [facility] [place] [facility] [address] [id number] [place] [address] Nov, [facility] [place] [facility] [address] [id number] [place] [address] Nov, [facility] [place] [facility] [address] [id number] [place] [address] Oct, [facility] [place] [facility] [address] [id number] [place] [address] Oct, [facility] [place] [facility] [address] [facility] [id number] [place] [address] Oct, [facility] [place] [facility] [address] [id number] [place] [address] Oct, [facility] [place] [facility] [address] [id number] [place] [address] Oct, [facility] [place] [facility] [address] [id number] [place] [address] Oct, [facility] [place] [facility] [address] [id number] [place] [address] Oct, [facility] [place] [facility] [address] [id number] [place] [address] Oct, [facility] [place] [facility] [address] [id number] [place] [address] Sep, [facility] [address] [facility] [id number] [place] [id number] August, [facility] [place] [facility] [address] [id number] [place] [address] August, [facility] [place] [facility] [address] [id number] [place] [address] Jul, [facility] [place] [facility] [address] [id number] [place] [address] Jul, [facility] [place] [facility] [address] [id number] [place] [address] Jul, [facility] [place] [facility] [address] [id number] [place] [address] Jul, [facility] [place] [facility] [address] [id number] [place] [address] Jul, [facility] [place] [facility] [address] [id number] [place] [address] Jul, [facility] [place] [facility] [address] [id number] [place] [address] 16 Jul, 2012 [facility] [place] [facility] [address] [id number] [place] [address] Jun, [facility] [place] [facility] [address] [id number] [place] [address] 18 Jun, 2012 [facility] [place] [facility] [address] [id number] [place] [address] Jun, [facility] [place] [facility] [address] [id number] [place] [address] 04 Jun, 2012 [facility] [place] [facility] [address] [id number] [place] [address] Jun, [facility] [place] [facility] [address] [id number] [place] [address] May, [facility] [place] [facility] [address] [id number] [place] [address] May, [facility] [place] [facility] [address] [id number] [place] [address] May, [facility] [place] [facility] [address] [id number] [place] [address] Apr, [facility] [place] [facility] [address] [id number] [place] [address] Apr, [facility] [place] [facility] [address] [id number] [place] [address] Apr, [facility] [place] [facility] [address] [id number] [place] [address] Mar, [facility] [place] [facility] [id number] [place] [address] Mar, [facility] [place] [facility] [address] [id number] [place] [address] Mar, [facility] [place] [facility] [id number] [place] [address] Mar, [facility] [place] [facility] [address] [id number] [place] [address] Mar, [facility] [place] [facility] [id number] [place] [address] Mar, [facility] [place] [facility] [address] [id number] [place] [address] Feb, [facility] [place] [facility] [id number] [place] [address] Feb, [facility] [place] [facility] [address] [id number] [place] [address] Jan, [facility] [place] [facility] [id number] [place] [address] Jan, [facility] [place] [facility] [address] [facility] [id number] [facility] [place] [address] Dec, [facility] [place] [facility] [address] [id number] [place] [address] Nov, [facility] [place] [facility] [address] [id number] [place] [address] Nov, [facility] [place] [facility] [address] [id number] [place] [address] Nov, [facility] [place] [facility] [address] [id number] [place] [address] Nov, [facility] [place] [facility] [address] [id number] [place] [address] Oct, [facility] [place] [facility] [address] [id number] [place] [address] Oct, [facility] [place] [facility] [address] [id number] [place] [address] Oct, [facility] [place] [facility] [address] [id number] [place] [address] Sep, [facility] [place] [facility] [address] [id number] [place] [address] Sep, [facility] [place] [facility] [address] [id number] [place] [address] Sep, [facility] [place] [facility] [address] [id number] [place] [address] August, [facility] [place] [facility] [address] [id number] [place] [address] August, [facility] [place] [facility] [address] [id number] [place] [address] Jul, [facility] [place] [facility] [address] [id number] [place] [address] 24 Jul, 2011 [facility] [place] [facility] [address] [id number] [place] [address] Jul, [facility] [place] [facility] [address] [id number] [place] [address] Jul, [facility] [address] [id number] [place] [address] Jun, [facility] [place] [facility] [address] [id number] [place] [address] May, [facility] [place] [facility] [address] [id number] [place] [address] Apr, [facility] [place] [facility] [id number] [place] [address] Apr, [facility] [place] [facility] [address] [id number] [place] [address] Apr, [facility] [place] [facility] [id number] [place] [address] Apr, [facility] [place] [facility] [address] [id number] [place] [address] Apr, [facility] [place] [facility] [id number] [place] [address] Apr, [facility] [place] [facility] [address] [id number] [place] [address] Mar, [facility] [place] [facility] [id number] [place] [address] Mar, [facility] [place] [facility] [address] [id number] [place] [address] Feb, [facility] [place] [facility] [id number] [place] [address] Feb, [facility] [place] [facility] [address] [id number] [place] [address] Feb, [facility] [place] [facility] [address] [id number] [place] [address] Feb, [facility] [place] [facility] [address] [id number] [place] [address] Jan, [facility] [place] [facility] [address] [id number] [place] [address] Jan, [facility] [place] [facility] [address] [id number] [place] [address] 18 Jan, 2011 [facility] [place] [facility] [address] [id number] [place] [address] 18 Jan, 2011 [facility] [place] [facility] [address] [id number] [place] [address] Nov, [facility] [place] [facility] [address] [id number] [place] [address] Mar, [facility] [place] [facility] [address] [id number] [place] [address] Mar, [facility] [place] [facility] [address] [id number] [place] [address] Feb, [facility] [place] [facility] [address] [id number] [place] [address] Feb, [facility] [place] [facility] [address] [id number] [place] [address] Jan, [facility] [place] [facility] [address] [id number] [place] [address] Jan, [facility] [place] [facility] [address] [id number] [place] [address] Sep, [facility] [place] [facility] [address] [id number] [place] [address] May, [facility] [place] [facility] [address] [id number] [place] [address] Apr, [facility] [place] [facility] [address] [id number] [place] [address] Mar, [facility] [place] [facility] [address] [id number] [place] [address] 15 Feb, 2009 [facility] [place] [facility] [address] [id number] [place] [address] Feb, [facility] [place] [facility] [address] [id number] [place] [address] Feb, [facility] [place] [facility] [address] [id number] [place] [address] 22 Jan, 2009 [facility] [place] [facility] [address] [id number] [place] [address] 13 Jan, 2009 [facility] [address] [id number] [place] [address] 13 Jan, 2009 [facility] [address] [id number] [place] [address] 11 Jan, 2009 [facility] [address] [id number] [place] [address] August, IMMUNIZATIONS No Known Immunizations SOCIAL HISTORY [...] age 6 Hospitalization History surgery Hospitalization History [facility], indeann webber treatment few times for BH
--- OUTSIDE RECORDS SUMMARY | 2019-09-29 10:41 | XMS REPORT ---
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 Role Phone Migration, Doctor Unavailable Unavailable PROBLEMS Type Condition ICD9-CM Code DYO15-SG Code Onset Dates Condition S tatus SNOMED Code Problem Adjustment disorder, unspecified type F43.20 Active 15665117 Problem Reactive airway disease, unspecified asthma justin rity, uncomplicated J45.909 Active 920573158824 Problem Hypertensive retinopathy of both eyes H35.033 Active 5821906 Problem Open-angle glaucoma of both eyes, unspecified glaucoma stage, unspecified open-angle glaucoma type H40.10X0 Acti ve 26043117 Problem Essential hypertension I10 Active 82586853 Problem Obstructive sleep apnea G47.33 Active 09164107 Problem Intermittent explosive disorder F63.81 Active 46421440 Problem Type 2 diabetes mellitus with complication E11.8 Active 01316872 Problem Bipolar disorder, in partial remission, most rec ent episode manic F31.73 Active 91639728 Problem Intermittent explosive disorder in adult F63.81 Active 31594781 Problem Bipolar disorder, unspecified F31.9 Active 21862286 Problem Neuropathy G62.9 Active 747688167 Problem Diabetes E11.9 Active 98726372 Problem Other specified urinary incontinence N39.498 Active 727386661 Problem Depression F32.9 Active 29702346 Problem 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 Active 24216963 Problem Mild intellectual disability F70 A ctive 32194276 Problem Reactive airway disease, mild intermittent, uncomplicated J45.20 Active 037317525 Problem Gastroesophageal reflux disease without esophagitis K21.9 Active 130230405 Problem Other diabetic neurological complication associated with type 2 diabetes mellitus E11.49 Active 766763041 ALLERGIES No Information ENCOUNTERS Encounter Location Date Diagnosis [facility] [address] [id number] [place] [address] August, [facility] [address] [id number] [place] [address] Jul, [facility] [id number] [place] [address] Jul, [facility] [address] [address] Apr, Intermittent explosive disorder in adult F63.81 ; Bipolar disorder, unspecified F31.9 and Mild intellectual disability F70 [facility] [address] [facility] [address] [id number] [address] Apr, Oral health maintenance stat us requiring routine preventive dental care K08.9 [facility] [address] [address] Apr, Type 2 diabetes mellitus with complicati on E11.8 ; History of test for hearing Z92.89 ; Colon cancer screening Z12.11 ; Other specified urinary incontinence N39.498 and Impacted cerumen, right ear H61.21 [place] [address] [address] Apr, Onychomycosis B35.1 ; Other diabetic luc rological complication associated with type 2 diabetes mellitus E11.49 and Tinea pedis of both feet B35.3 [place] [address] [address] Feb, [facility] [address] [address] Jan, [facility] [address] [address] Jan, [facility] [address] [address] Jan, [facility] [address] [address] Jan, [facility] [address] [address] Jan, [facility] [address] [address] Jan, [place] [address] [address] Jan, [place] [address] [address] Jan, Anemia D64.9 [facility] [address] [facility] [address] [id number] [place] [address] 04 Jan, 2019 Dental examination Z01.20 an d Oral health maintenance status requiring routine preventive dental care K08.9 [place] [address] [address] Jan, Onychomycosis B35.1 and Other diabetic n eurological complication associated with type 2 diabetes mellitus E11.49 [place] [address] [address] Jan, Anemia D64.9 [place] [address] [address] Jan, [place] [address] [address] Dec, Urinary tract infection without hematuri a, site unspecified N39.0 [place] [address] [address] Dec, Type 2 diabetes mellitus with complicati on E11.8 ; Urinary tract infection without hematuria, site unspecified N39.0 ; Impacted cerumen of both ears H61.23 ; Encounter for immunization Z23 and Hyponatremia E87.1 [place] [address] [address] Dec, Intermittent explosive disorder in adult F63.81 ; Dysuria R30.0 ; Type 2 diabetes mellitus with complication E11.8 ; Bipolar disorder, unspecified F31.9 and Mild intellectual disability F70 [place] [address] [address] Dec, Dysuria R30.0 [place] [address] [address] Dec, Intermittent explosive disorder in adult F63.81 ; Bipolar disorder, unspecified F31.9 and Mild intellectual disability F70 [facility] [address] [address] Nov, [facility] [address] [address] Oct, [facility] [address] [address] [id number] [place] [address] Oct, Oral health maintenance stat us requiring routine preventive dental care K08.9 [facility] [address] [address] August, Intermittent explosive disorder in adult F63.81 ; Bipolar disorder, unspecified F31.9 and Mild intellectual disability F70 [facility] [address] [id number] August, Dental caries K02.9 [facility] [address] [address] Jul, Onychomycosis B35.1 ; Other diabetic luc rological complication associated with type 2 diabetes mellitus E11.49 and Tinea pedis of both feet B35.3 [facility] [address] [id number] Jul, Caries K02.9 [facility] [address] [address] Jul, Type 2 diabetes mellitus with complicati on E11.8 ; Tobacco abuse Z72.0 and Bipolar disorder, unspecified F31.9 [facility] [address] [address] Jun, [facility] [address] [id number] Jun, Dental examination Z01.20 and Oral healt h maintenance status requiring routine preventive dental care K08.9 [facility] [address] [address] May, Bilateral impacted cerumen H61.23 [facility] [id number] [place] [address] Apr, Bipolar disorder, unspecified F31.9 ; In termittent explosive disorder in adult F63.81 ; Type 2 diabetes mellitus with complication E11.8 ; Tobacco abuse Z72.0 and Colon cancer screening Z12.11 [facility] [id number] [place] [address] Apr, Onychomycosis B35.1 and Other diabetic n eurological complication associated with type 2 diabetes mellitus E11.49 [facility] [address] [address] Apr, Intermittent explosive disorder in adult F63.81 ; Bipolar disorder, unspecified F31.9 and Mild intellectual disability F70 [facility] [id number] [place] [address] Mar, Diabetes E11.9 [facility] [address] [facility] [id number] [address] [place] [address] Jan, Encounter for immunization Z 23 [facility] [address] [address] Jan, Tinea pedis of both feet B35.3 ; Other d iabetic neurological complication associated with type 2 diabetes mellitus E11.49 and Onychomycosis B35.1 [facility] [id number] [place] [address] Nov, Type 2 diabetes mellitus with complicati on E11.8 [facility] [id number] [place] [address] Nov, [facility] [address] [address] Oct, Intermittent explosive disorder in adult F63.81 ; Bipolar disorder, unspecified F31.9 and Mild intellectual disability F70 [facility] [id number] [place] [address] Oct, [facility] [id number] [place] [id number] Oct, Dental examination Z01.20 [place] [address] [address] Oct, Onychomycosis B35.1 and Other diabetic n eurological complication associated with type 2 diabetes mellitus E11.49 [place] [address] [address] Sep, Type 2 diabetes mellitus with complicati on E11.8 and Colon cancer screening Z12.11 [place] [address] [address] 18 Sep, 2017 Type 2 diabetes mellitus with complicati on E11.8 ; Colon cancer screening Z12.11 and Neuropathy G62.9 [place] [address] [address] August, Diabetes E11.9 [facility] [address] [id number] Jul, Dental examination Z01.20 [place] [address] [address] May, Mild intellectual disability F70 [place] [address] [address] May, Mild intellectual disability F70 ; High risk medication use Z79.899 ; Intermittent explosive disorder in adult F63.81 and Bipolar disorder, unspecified F31.9 [place] [address] [address] May, [place] [address] [address] May, [place] [address] [address] Apr, Type 2 diabetes mellitus with complicati on E11.8 ; Mild intellectual disability F70 ; Gastroesophageal reflux disease without esophagitis K21.9 ; Reactive airway disease, mild intermittent, uncomplicated J45.20 and Tobacco abuse Z72.0 [place] [address] [address] 09 Apr, 2017 High risk medication use Z79.899 ; Mild intellectual disability F70 ; Intermittent explosive disorder in adult F63.81 and Bipolar disorder, unspecified F31.9 [facility] [address] [id number] Mar, Encounter for dental exam and cleaning w /o abnormal findings Z01.20 [facility] [address] [id number] 27 Mar, 2017 Dental examination Z01.20 [facility] [address] [address] 12 Jan, 2017 [facility] [address] [address] Jan, [facility] [address] [address] Jan, Mild intellectual disability F70 ; Bipol ar disorder, unspecified F31.9 and Intermittent explosive disorder in adult F63.81 [facility] [address] [address] 02 Jan, 2017 Diabetes E11.9 [facility] [address] [id number] 13 Dec, 2016 Encounter for dental examination and osei aning without abnormal findings Z01.20 [facility] [address] [address] 12 Dec, 2016 Bipolar disorder, unspecified F31.9 ; In termittent explosive disorder in adult F63.81 and Mild intellectual disability F70 [facility] [address] [address] Nov, Diabetes E11.9 [facility] [address] [address] Nov, [facility] [address] [address] Nov, Diabetes E11.9 and Colon cancer screenin g Z12.11 [facility] [address] [id number] [place] [id number] 21 Sep, 2016 Dental examination Z01.20 [facility] [address] [id number] 21 Sep, 2016 Encounter for dental examination and osei aning without abnormal findings Z01.20 [facility] [address] [place] [address] 13 Sep, 2016 Bipolar disorder, unspecified F31.9 [facility] [address] [address] 12 Sep, 2016 Bipolar disorder, unspecified F31.9 [facility] [address] [place] [address] Jul, [facility] [address] [address] Jul, Type 2 diabetes mellitus with complicati on E11.8 [facility] [address] [id number] 15 Jun, 2016 Encounter for dental examination and osei aning without abnormal findings Z01.20 [facility] [address] [id number] [id number] 15 Jun, 2016 Dental examination Z01.20 [facility] [address] [address] 18 Apr, 2016 Sports physical Z02.5 [facility] [address] [place] [address] [address] 14 Mar, 2016 Bipolar disorder, in partial remission, most recent episode manic F31.73 and Intermittent explosive disorder in adult F63.81 [facility] [address] [place] [id number] 08 Mar, 2016 [facility] [address] [place] [id number] 06 Mar, 2016 Diabetes E11.9 [facility] [address] [id number] Feb, Encounter for dental examination and osei aning without abnormal findings Z01.20 [facility] [id number] [place] [address] 22 Dec, 2015 Nocturnal hypoxemia G47.34 and Encounter for immunization Z23 [facility] [address] [address] 15 Dec, 2015 [facility] [address] [address] Dec, [facility] [address] [address] Dec, Bipolar disorder, unspecified F31.9 [facility] [address] [id number] [place] [id number] Oct, Encounter for dental examination and osei aning without abnormal findings Z01.20 [facility] [address] [id number] [id number] Oct, Dental examination Z01.20 [facility] [address] [address] 07 Oct, 2015 Diabetes E11.9 [place] [address] [address] Oct, Diabetes E11.9 ; Reactive airway disease , mild intermittent, uncomplicated J45.20 and Tobacco abuse Z72.0 [place] [address] [address] Sep, Bipolar disorder, unspecified F31.9 and Depression F32.9 [facility] [address] [address] Sep, [place] [address] [address] August, Tinea pedis of both feet B35.3 and DM w/ o complication type II, uncontrolled E11.65 [facility] [address] [address] Jul, [place] [address] [address] Jul, [place] [address] [address] Jul, Obstructive sleep apnea G47.33 [place] [address] [address] Jun, Diabetes E11.9 [place] [address] [address] Jun, [place] [address] [address] Jun, [place] [address] [address] Jun, Bipolar disorder, unspecified F31.9 and Mental retardation F79 [address] [address] Apr, [place] [address] [address] Feb, Diabetes E11.9 ; Encounter for immunizat ion Z23 ; Cough R05 and Nicotine abuse Z72.[address] [address] Jan, Bipolar disorder, unspecified F31.9 and Diabetes mellitus without mention of complication, type II or unspecified type, uncontrolled 250.[address] [address] Jan, [address] [address] Dec, Reactive airway disease 493.90 and Enure sis 788.30 [place] [address] [address] Dec, [address] [address] Nov, [place] [address] [address] Nov, [address] [place] [address] Nov, Annual physical exam V70.0 ; Urinary inc ontinence 788.30 ; Diabetes 250.00 and Hypertension 401.9 [facility] [address] [address] Oct, Diabetes mellitus without mention of com plication, type II or unspecified type, uncontrolled 250.02 [facility] [address] [address] Oct, Diabetes mellitus without mention of com plication, type II or unspecified type, uncontrolled 250.02 [facility] [address] [address] Oct, Diabetes mellitus without mention of com plication, type II or unspecified type, uncontrolled 250.02 [facility] [address] [address] Oct, [facility] [address] [address] Oct, [facility] [address] [address] Oct, Bipolar disorder, unspecified 296.80 [facility] [address] [id number] Sep, Dental examination V72.2 [facility] [address] [address] August, [facility] [address] [id number] August, Dental examination V72.2 [facility] [address] [address] August, [facility] [address] [address] Jul, [facility] [address] [address] Jul, [facility] [address] [address] 17 Jun, 2014 [facility] [address] [facility] [id number] [place] [address] 17 Jun, 2014 [facility] [address] [facility] [id number] [place] [address] 17 Jun, 2014 [facility] [address] [id number] [place] [address] Jun, 2014 [facility] [address] [facility] [id number] [place] [address] May, 2014 [facility] [address] [facility] [id number] [place] [address] May, 2014 [facility] [address] [id number] [place] [address] 16 May, 2014 [facility] [address] [id number] [place] [address] 16 May, 2014 [facility] [address] [id number] [place] [address] 16 May, 2014 [facility] [address] [id number] [place] [address] 16 May, 2014 [facility] [address] [id number] [place] [address] 16 May, 2014 [facility] [address] [id number] [place] [address] 16 May, 2014 [facility] [address] [id number] [place] [address] 16 May, 2014 [facility] [address] [facility] [id number] [place] [address] 16 May, 2014 [facility] [address] [id number] [place] [address] 16 May, 2014 [facility] [address] [id number] [place] [address] 16 May, 2014 [facility] [address] [id number] [place] [address] May, [facility] [address] [facility] [id number] [place] [address] May, [facility] [address] [facility] [id number] [place] [address] May, [facility] [address] [id number] [facility] [place] [address] Apr, [facility] [address] [id number] [facility] [place] [address] Apr, [facility] [address] [facility] [id number] [facility] [place] [address] Apr, [facility] [address] [id number] [place] [address] Apr, [facility] [address] [id number] [place] [address] Apr, [facility] [address] [id number] [place] [address] Apr, [facility] [address] [id number] [place] [address] Apr, [facility] [address] [id number] [place] [address] Apr, [facility] [address] [id number] [place] [address] Apr, [facility] [address] [id number] [place] [address] Apr, [facility] [address] [facility] [id number] [place] [address] Apr, [facility] [address] [id number] [place] [address] Apr, [facility] [address] [id number] [place] [address] Mar, [facility] [address] [id number] [place] [address] Mar, [facility] [address] [id number] [facility] [place] [address] 10 Mar, 2014 [facility] [address] [facility] [id number] [place] [address] 10 Mar, 2014 [facility] [address] [id number] [place] [address] Mar, [facility] [address] [id number] [place] [address] Mar, [facility] [address] [id number] [place] [address] Feb, [facility] [address] [id number] [place] [address] Feb, [facility] [address] [id number] [place] [address] Feb, [facility] [address] [id number] [place] [address] Feb, [facility] [address] [id number] [place] [address] 14 Jan, 2014 [facility] [address] [id number] [place] [address] 14 Jan, 2014 [facility] [address] [id number] [place] [address] 14 Jan, 2014 [facility] [address] [id number] [place] [address] 14 Jan, 2014 [facility] [address] [id number] [place] [address] 22 Dec, 2013 [facility] [address] [id number] [place] [address] 22 Dec, 2013 [facility] [address] [id number] [place] [address] 15 Dec, 2013 [facility] [address] [id number] [place] [address] 15 Dec, 2013 [facility] [address] [id number] [place] [address] Nov, [facility] [address] [id number] [place] [address] Nov, [facility] [address] [facility] [id number] [place] [address] Nov, [facility] [address] [facility] [id number] [place] [address] Nov, [facility] [address] [id number] [place] [address] Nov, [facility] [address] [facility] [id number] [place] [address] Nov, [facility] [address] [facility] [id number] [place] [address] Nov, [facility] [address] [id number] [place] [address] Oct, [facility] [address] [id number] [place] [address] Oct, [facility] [address] [id number] [place] [address] Oct, [facility] [address] [id number] [place] [address] Oct, [facility] [address] [id number] [place] [address] Oct, [facility] [address] [id number] [place] [address] Oct, [facility] [address] [id number] [place] [address] Oct, [facility] [address] [facility] [id number] [place] [address] Sep, [facility] [address] [id number] [place] [address] Sep, [facility] [address] [id number] [place] [address] Sep, [facility] [address] [id number] [place] [address] Sep, [facility] [address] [facility] [id number] [place] [address] Sep, [facility] [address] [facility] [id number] [facility] [place] [address] Jul, [facility] [address] [id number] [place] [address] Jul, [facility] [address] [id number] [facility] [place] [address] Jul, [facility] [address] [facility] [id number] [place] [address] Jul, [facility] [address] [id number] [place] [address] Jul, [facility] [address] [id number] [place] [address] Jul, [facility] [address] [id number] [place] [address] Jul, [facility] [address] [id number] [place] [address] Jul, [facility] [address] [id number] [place] [address] Jul, [facility] [address] [id number] [place] [address] Jul, [facility] [address] [facility] [id number] [place] [address] Jul, [facility] [place] [facility] [address] [id number] [place] [address] Jul, [facility] [place] [facility] [address] [id number] [place] [address] Jun, [facility] [place] [facility] [address] [id number] [place] [address] Jun, [facility] [place] [facility] [address] [id number] [place] [address] Jun, [facility] [place] [facility] [address] [id number] [facility] [place] [address] Jun, [facility] [place] [facility] [address] [facility] [id number] [place] [address] Jun, [facility] [place] [facility] [address] [id number] [place] [address] Jun, [facility] [place] [facility] [address] [id number] [place] [address] Jun, [facility] [place] [facility] [address] [id number] [place] [address] Jun, [facility] [place] [facility] [address] [id number] [place] [address] May, [facility] [place] [facility] [address] [id number] [place] [address] May, [facility] [place] [facility] [address] [id number] [place] [address] May, [facility] [place] [facility] [address] [id number] [place] [address] May, [facility] [place] [facility] [address] [id number] [place] [address] May, [facility] [place] [facility] [address] [id number] [place] [address] May, [facility] [place] [facility] [address] [id number] [place] [address] May, [facility] [place] [facility] [address] [id number] [place] [address] May, [facility] [place] [facility] [address] [id number] [place] [address] Apr, [facility] [place] [facility] [address] [id number] [place] [address] Apr, [facility] [place] [facility] [address] [id number] [place] [address] Apr, [facility] [place] [facility] [address] [id number] [place] [address] Apr, [facility] [place] [facility] [address] [id number] [place] [address] Mar, [facility] [place] [facility] [address] [id number] [place] [address] Mar, [facility] [place] [facility] [address] [id number] [place] [address] Mar, [facility] [place] [facility] [address] [id number] [place] [address] Feb, [facility] [place] [facility] [address] [id number] [place] [address] Feb, [facility] [place] [facility] [address] [id number] [place] [address] Feb, [facility] [place] [facility] [address] [id number] [place] [address] Feb, [facility] [place] [facility] [address] [id number] [place] [address] Feb, [facility] [place] [facility] [address] [id number] [place] [address] Feb, [facility] [place] [facility] [address] [id number] [place] [address] Jan, [facility] [place] [facility] [address] [id number] [place] [address] Jan, [facility] [place] [facility] [address] [id number] [place] [address] Jan, [facility] [place] [facility] [address] [id number] [place] [address] Jan, [facility] [place] [facility] [address] [id number] [place] [address] Jan, [facility] [place] [facility] [address] [id number] [place] [address] Jan, [facility] [place] [facility] [address] [id number] [place] [address] Jan, [facility] [place] [facility] [address] [id number] [place] [address] Dec, 2012 [facility] [place] [facility] [address] [id number] [facility] [place] [address] 16 Dec, 2012 [facility] [place] [facility] [address] [facility] [id number] [facility] [place] [address] Dec, [facility] [place] [facility] [address] [id number] [place] [address] Dec, [facility] [place] [facility] [address] [id number] [place] [address] Nov, [facility] [place] [facility] [address] [facility] [id number] [facility] [place] [address] Nov, [facility] [place] [facility] [address] [id number] [place] [address] Nov, [facility] [place] [facility] [address] [id number] [place] [address] Nov, [facility] [place] [facility] [address] [id number] [place] [address] Nov, [facility] [place] [facility] [address] [id number] [place] [address] Nov, [facility] [place] [facility] [address] [id number] [place] [address] Nov, [facility] [place] [facility] [address] [id number] [place] [address] Oct, [facility] [place] [facility] [address] [id number] [place] [address] Oct, [facility] [place] [facility] [address] [facility] [id number] [place] [address] Oct, [facility] [place] [facility] [address] [id number] [place] [address] Oct, [facility] [place] [facility] [address] [id number] [place] [address] Oct, [facility] [place] [facility] [address] [id number] [place] [address] Oct, [facility] [place] [facility] [address] [id number] [place] [address] Oct, [facility] [place] [facility] [address] [id number] [place] [address] Oct, [facility] [place] [facility] [address] [id number] [place] [address] Sep, [facility] [address] [facility] [id number] [place] [id number] August, [facility] [place] [facility] [address] [id number] [place] [address] August, [facility] [place] [facility] [address] [id number] [place] [address] Jul, [facility] [place] [facility] [address] [id number] [place] [address] Jul, [facility] [place] [facility] [address] [id number] [place] [address] Jul, [facility] [place] [facility] [address] [id number] [place] [address] Jul, [facility] [place] [facility] [address] [id number] [place] [address] Jul, [facility] [place] [facility] [address] [id number] [place] [address] Jul, [facility] [place] [facility] [address] [id number] [place] [address] 16 Jul, 2012 [facility] [place] [facility] [address] [id number] [place] [address] Jun, [facility] [place] [facility] [address] [id number] [place] [address] 18 Jun, 2012 [facility] [place] [facility] [address] [id number] [place] [address] Jun, [facility] [place] [facility] [address] [id number] [place] [address] 04 Jun, 2012 [facility] [place] [facility] [address] [id number] [place] [address] Jun, [facility] [place] [facility] [address] [id number] [place] [address] May, [facility] [place] [facility] [address] [id number] [place] [address] May, [facility] [place] [facility] [address] [id number] [place] [address] May, [facility] [place] [facility] [address] [id number] [place] [address] Apr, [facility] [place] [facility] [address] [id number] [place] [address] Apr, [facility] [place] [facility] [address] [id number] [place] [address] Apr, [facility] [place] [facility] [address] [id number] [place] [address] Mar, [facility] [place] [facility] [id number] [place] [address] Mar, [facility] [place] [facility] [address] [id number] [place] [address] Mar, [facility] [place] [facility] [id number] [place] [address] Mar, [facility] [place] [facility] [address] [id number] [place] [address] Mar, [facility] [place] [facility] [id number] [place] [address] Mar, [facility] [place] [facility] [address] [id number] [place] [address] Feb, [facility] [place] [facility] [id number] [place] [address] Feb, [facility] [place] [facility] [address] [id number] [place] [address] Jan, [facility] [place] [facility] [id number] [place] [address] Jan, [facility] [place] [facility] [address] [facility] [id number] [facility] [place] [address] Dec, [facility] [place] [facility] [address] [id number] [place] [address] Nov, [facility] [place] [facility] [address] [id number] [place] [address] Nov, [facility] [place] [facility] [address] [id number] [place] [address] Nov, [facility] [place] [facility] [address] [id number] [place] [address] Nov, [facility] [place] [facility] [address] [id number] [place] [address] Oct, [facility] [place] [facility] [address] [id number] [place] [address] Oct, [facility] [place] [facility] [address] [id number] [place] [address] Oct, [facility] [place] [facility] [address] [id number] [place] [address] Sep, [facility] [place] [facility] [address] [id number] [place] [address] Sep, [facility] [place] [facility] [address] [id number] [place] [address] Sep, [facility] [place] [facility] [address] [id number] [place] [address] August, [facility] [place] [facility] [address] [id number] [place] [address] August, [facility] [place] [facility] [address] [id number] [place] [address] Jul, [facility] [place] [facility] [address] [id number] [place] [address] 24 Jul, 2011 [facility] [place] [facility] [address] [id number] [place] [address] Jul, [facility] [place] [facility] [address] [id number] [place] [address] Jul, [facility] [address] [id number] [place] [address] Jun, [facility] [place] [facility] [address] [id number] [place] [address] May, [facility] [place] [facility] [address] [id number] [place] [address] Apr, [facility] [place] [facility] [id number] [place] [address] Apr, [facility] [place] [facility] [address] [id number] [place] [address] Apr, [facility] [place] [facility] [id number] [place] [address] Apr, [facility] [place] [facility] [address] [id number] [place] [address] Apr, [facility] [place] [facility] [id number] [place] [address] Apr, [facility] [place] [facility] [address] [id number] [place] [address] Mar, [facility] [place] [facility] [id number] [place] [address] Mar, [facility] [place] [facility] [address] [id number] [place] [address] Feb, [facility] [place] [facility] [id number] [place] [address] Feb, [facility] [place] [facility] [address] [id number] [place] [address] Feb, [facility] [place] [facility] [address] [id number] [place] [address] Feb, [facility] [place] [facility] [address] [id number] [place] [address] Jan, [facility] [place] [facility] [address] [id number] [place] [address] Jan, [facility] [place] [facility] [address] [id number] [place] [address] 18 Jan, 2011 [facility] [place] [facility] [address] [id number] [place] [address] 18 Jan, 2011 [facility] [place] [facility] [address] [id number] [place] [address] Nov, [facility] [place] [facility] [address] [id number] [place] [address] Mar, [facility] [place] [facility] [address] [id number] [place] [address] Mar, [facility] [place] [facility] [address] [id number] [place] [address] Feb, [facility] [place] [facility] [address] [id number] [place] [address] Feb, [facility] [place] [facility] [address] [id number] [place] [address] Jan, [facility] [place] [facility] [address] [id number] [place] [address] Jan, [facility] [place] [facility] [address] [id number] [place] [address] Sep, [facility] [place] [facility] [address] [id number] [place] [address] May, [facility] [place] [facility] [address] [id number] [place] [address] Apr, [facility] [place] [facility] [address] [id number] [place] [address] Mar, [facility] [place] [facility] [address] [id number] [place] [address] 15 Feb, 2009 [facility] [place] [facility] [address] [id number] [place] [address] Feb, [facility] [place] [facility] [address] [id number] [place] [address] Feb, [facility] [place] [facility] [address] [id number] [place] [address] 22 Jan, 2009 [facility] [place] [facility] [address] [id number] [place] [address] 13 Jan, 2009 [facility] [address] [id number] [place] [address] Jan, [facility] [address] [id number] [place] [address] 11 Jan, 2009 [facility] [address] [id number] [place] [address] August, IMMUNIZATIONS No Known Immunizations SOCIAL HISTORY Never Assessed REASON FOR VISIT PLAN OF CARE VITAL SIGNS MEDICATIONS Unknown Medications RESULTS No Results PROCEDURES Procedure Date Ordered Result Body Site ASSAY OF VITAMIN D July 29, 2013 INSTRUCTIONS MEDICATIONS ADMINISTERED No Known Medications [...] age 6 Hospitalization History surgery Hospitalization History [facility], inpa tient treatment few times for BH
--- OUTSIDE RECORDS SUMMARY | 2019-09-29 10:42 | XMS REPORT ---
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 Active 37782027 Problem Open-angle glaucoma of both eyes, unspecified glaucoma stage, unspecified open-angle glaucoma type H40.10X0 Acti ve 71957114 Problem Adjustment disorder, unspecified type F43.20 Active 41209705 Problem Obstructive sleep apnea G47.33 Active 00820369 Problem Hypertensive retinopathy of both eyes H35.033 Active 4597720 Problem Type 2 diabetes mellitus with complication E11.8 Active 20642896 Problem Essential hypertension I10 Active 27843098 Problem Diabetes E11.9 Active 78348497 Problem Bipolar disorder, in partial remission, most rec ent episode manic F31.73 Active 21319810 Problem Intermittent explosive disorder in adult F63.81 Active 99700131 Problem Other diabetic neurological complication associated with type 2 diabetes mellitus E11.49 Active 539304602 Problem Depression F32.9 Active 24673588 Problem Neuropathy G62.9 Active 156296459 Problem Intermittent explosive disorder F63.81 Active 17283897 Problem Bipolar disorder, unspecified F31.9 Active 14328203 Problem Mild intellectual disability F70 A ctive 84354179 Problem Reactive airway disease, mild intermittent, uncomplicated J45.20 Active 528791614 Problem Gastroesophageal reflux disease without esophagitis K21.9 Active 572439328 ALLERGIES No Information ENCOUNTERS Encounter Location Date Diagnosis [facility] [address] [facility] [id number] [address] [place] [address] Apr, [facility] [address] [facility] [id number] [address] [place] [address] 10 Apr, 2019 [facility] [id number] [place] [id number] 04 Jan, 2019 Dental examination Z01.20 ; Caries K02.9 and Oral health maintenance status requiring routine preventive dental care K08.9 [facility] [address] [facility] [id number] [address] [place] [address] 04 Jan, 2019 Onychomycosis B35.1 and Othe r diabetic neurological complication associated with type 2 diabetes mellitus E11.49 [facility] [address] [facility] [id number] [address] [place] [address] Jan, Anemia D64.9 [facility] [address] [facility] [id number] [address] [place] [address] Jan, [place] [address] [place] [id number] [address] [place] [address] Dec, Urinary tract infection with out hematuria, site unspecified N39.0 [place] [place] [address] [place] [id number] [address] [place] [address] Dec, Type 2 diabetes mellitus wit h complication E11.8 ; Urinary tract infection without hematuria, site unspecified N39.0 ; Impacted cerumen of both ears H61.23 ; Encounter for immunization Z23 and Hyponatremia E87.1 [place] [address] [place] [id number] [address] [place] [address] Dec, Intermittent explosive disor salvatore in adult F63.81 ; Dysuria R30.0 ; Type 2 diabetes mellitus with complication E11.8 ; Bipolar disorder, unspecified F31.9 and Mild intellectual disability F70 [facility] [address] [place] [id number] [address] [place] [address] Dec, Dysuria R30.0 [facility] [address] [facility] [id number] [address] [place] [address] Dec, Intermittent explosive disor salvatore in adult F63.81 ; Bipolar disorder, unspecified F31.9 and Mild intellectual disability F70 [facility] [address] [id number] [address] [place] [address] Nov, [facility] [address] [id number] [address] [place] [address] Oct, [facility] [id number] [place] [address] Oct, Oral health maintenance stat us requiring routine preventive dental care K08.9 [facility] [address] [id number] [address] [place] [address] August, Intermittent explosive disor salvatore in adult F63.81 ; Bipolar disorder, unspecified F31.9 and Mild intellectual disability F70 [facility] [address] [id number] [address] [place] [id number] August, Dental caries K02.9 [facility] [address] [facility] [id number] [address] [place] [address] Jul, Onychomycosis B35.1 ; Other diabetic neurological complication associated with type 2 diabetes mellitus E11.49 and Tinea pedis of both feet B35.3 [facility] [address] [id number] [address] [place] [address] [id number] Jul, Caries K02.9 [facility] [address] [facility] [id number] [address] [place] [address] Jul, Type 2 diabetes mellitus wit h complication E11.8 ; Tobacco abuse Z72.0 and Bipolar disorder, unspecified F31.9 [facility] [address] [id number] [address] [place] [address] Jun, [facility] [address] [id number] [address] [place] [address] [id number] Jun, Dental examination Z01.20 an d Oral health maintenance status requiring routine preventive dental care K08.9 [facility] [address] [id number] [address] [place] [address] May, Bilateral impacted cerumen H 61.23 [facility] [address] [place] [id number] [address] [place] [address] Apr, Bipolar disorder, unspecifie d F31.9 ; Intermittent explosive disorder in adult F63.81 ; Type 2 diabetes mellitus with complication E11.8 ; Tobacco abuse Z72.0 and Colon cancer screening Z12.11 [place] [address] [place] [id number] [address] [place] [address] Apr, Onychomycosis B35.1 and Othe r diabetic neurological complication associated with type 2 diabetes mellitus E11.49 [place] [address] [place] [id number] [address] [place] [address] Apr, Intermittent explosive disor salvatore in adult F63.81 ; Bipolar disorder, unspecified F31.9 and Mild intellectual disability F70 [place] [id number] [place] [address] Mar, Diabetes E11.9 [facility] [address] [place] [id number] [address] [place] [address] Jan, Encounter for immunization Z 23 [place] [address] [place] [id number] [address] [place] [address] Jan, Tinea pedis of both feet B35 .3 ; Other diabetic neurological complication associated with type 2 diabetes mellitus E11.49 and Onychomycosis B35.1 [facility] [address] [place] [id number] [address] [place] [address] Nov, Type 2 diabetes mellitus wit h complication E11.8 [place] [address] [place] [id number] [address] [place] [address] Nov, [facility] [address] [place] [id number] [address] [place] [address] Oct, Intermittent explosive disor salvatore in adult F63.81 ; Bipolar disorder, unspecified F31.9 and Mild intellectual disability F70 [facility] [address] [place] [id number] [address] [place] [address] Oct, [facility] [address] [id number] [address] [place] [address] [id number] Oct, Dental examination Z01.20 [facility] [address] [facility] [id number] [address] [place] [address] Oct, Onychomycosis B35.1 and Othe r diabetic neurological complication associated with type 2 diabetes mellitus E11.49 [facility] [address] [facility] [id number] [address] [place] [address] Sep, Type 2 diabetes mellitus wit h complication E11.8 and Colon cancer screening Z12.11 [facility] [address] [facility] [id number] [address] [place] [address] Sep, Type 2 diabetes mellitus wit h complication E11.8 ; Colon cancer screening Z12.11 and Neuropathy G62.9 [facility] [address] [facility] [id number] [address] [place] [address] August, Diabetes E11.9 [facility] [address] [id number] [address] [place] [address] [id number] Jul, Dental examination Z01.20 [facility] [address] [facility] [id number] [address] [place] [address] 27 May, 2017 Mild intellectual disability F70 [facility] [address] [facility] [id number] [address] [place] [address] May, Mild intellectual disability F70 ; High risk medication use Z79.899 ; Intermittent explosive disorder in adult F63.81 and Bipolar disorder, unspecified F31.9 [facility] [address] [facility] [id number] [address] [place] [address] May, [facility] [address] [facility] [id number] [address] [place] [address] May, [facility] [address] [facility] [id number] [address] [place] [address] Apr, Type 2 diabetes mellitus wit h complication E11.8 ; Mild intellectual disability F70 ; Gastroesophageal reflux disease without esophagitis K21.9 ; Reactive airway disease, mild intermittent, uncomplicated J45.20 and Tobacco abuse Z72.0 [facility] [address] [id number] [address] [place] [phone] 09 Apr, 2017 High risk medication use Z79 .899 ; Mild intellectual disability F70 ; Intermittent explosive disorder in adult F63.81 and Bipolar disorder, unspecified F31.9 [facility] [address] [id number] [address] [place] [address] [id number] Mar, Dental examination Z01.20 [facility] [address] [id number] [address] [place] [address] [id number] 27 Mar, 2017 Encounter for dental exam an d cleaning w/o abnormal findings Z01.20 [facility] [address] [id number] [address] [place] [address] 12 Jan, 2017 [facility] [address] [id number] [address] [place] [id number] 11 Jan, 2017 [facility] [address] [id number] [address] [place] [address] 10 Jan, 2017 Mild intellectual disability F70 ; Bipolar disorder, unspecified F31.9 and Intermittent explosive disorder in adult F63.81 [facility] [address] [id number] [address] [place] [address] 02 Jan, 2017 Diabetes E11.9 [facility] [address] [id number] [address] [place] [address] [id number] 13 Dec, 2016 Encounter for dental examina tion and cleaning without abnormal findings Z01.20 [facility] [address] [id number] [address] [place] [phone] 12 Dec, 2016 Bipolar disorder, unspecifie d F31.9 ; Intermittent explosive disorder in adult F63.81 and Mild intellectual disability F70 [facility] [address] [id number] [address] [place] [address] Nov, Diabetes E11.9 [facility] [address] [id number] [address] [place] [address] Nov, [facility] [address] [id number] [address] [place] [phone] 14 Nov, 2016 Diabetes E11.9 and Colon can cer screening Z12.11 [facility] [address] [id number] [id number] Sep, Dental examination Z01.20 [facility] [address] [id number] [address] [place] [address] [id number] Sep, Encounter for dental examina tion and cleaning without abnormal findings Z01.20 [facility] [address] [id number] [address] [place] [id number] 13 Sep, 2016 Bipolar disorder, unspecifie d F31.9 [facility] [address] [id number] [address] [place] [address] Sep, Bipolar disorder, unspecifie d F31.9 [facility] [address] [id number] [address] [place] [address] Jul, [facility] [address] [id number] [address] [place] [address] Jul, Type 2 diabetes mellitus wit h complication E11.8 [facility] [address] [id number] [address] [place] [address] [id number] 15 Jun, 2016 Encounter for dental examina tion and cleaning without abnormal findings Z01.[address] [id number] [id number] Jun, Dental examination Z01.20 [facility] [address] [id number] [address] [place] [phone] 18 Apr, 2016 Sports physical Z02.5 [facility] [address] [facility] [id number] [address] [place] [phone] 14 Mar, 2016 Bipolar disorder, in partial remission, most recent episode manic F31.73 and Intermittent explosive disorder in adult F63.81 [facility] [address] [id number] [address] [place] [phone] 08 Mar, 2016 [facility] [address] [id number] [address] [place] [address] Mar, Diabetes E11.9 [facility] [address] [id number] [address] [place] [address] [id number] Feb, Encounter for dental examina tion and cleaning without abnormal findings Z01.20 [facility] [address] [id number] [address] [place] [phone] 22 Dec, 2015 Nocturnal hypoxemia G47.34 a nd Encounter for immunization Z23 [facility] [address] [id number] [address] [place] [phone] 15 Dec, 2015 [facility] [address] [id number] [address] [place] [address] Dec, [facility] [address] [facility] [id number] [address] [place] [address] Dec, Bipolar disorder, unspecifie d F31.9 [facility] [address] [id number] [address] [place] [address] [id number] Oct, Encounter for dental examina tion and cleaning without abnormal findings Z01.20 [facility] [address] [id number] [place] [address] [id number] Oct, Dental examination Z01.20 [facility] [address] [facility] [id number] [address] [place] [address] Oct, Diabetes E11.9 [facility] [address] [facility] [id number] [address] [place] [address] Oct, Diabetes E11.9 ; Reactive ai rway disease, mild intermittent, uncomplicated J45.20 and Tobacco abuse Z72.0 [facility] [address] [facility] [id number] [address] [place] [address] Sep, Bipolar disorder, unspecifie d F31.9 and Depression F32.9 [facility] [address] [facility] [id number] [address] [place] [address] Sep, [facility] [id number] [place] [address] August, Tinea pedis of both feet B35 .3 and DM w/o complication type II, uncontrolled E11.65 [facility] [address] [place] [id number] [address] [place] [address] Jul, [place] [address] [address] Jul, [place] [address] [place] [address] Jul, Obstructive sleep apnea G47. 33 [place] [address] [place] [id number] [place] [address] Jun, Diabetes E11.9 [place] [address] [phone] Jun, [place] [address] [phone] Jun, [place] [address] [address] Jun, Bipolar disorder, unspecifie d F31.9 and Mental retardation F79 [place] [address] [address] Apr, [place] [address] [address] Feb, Diabetes E11.9 ; Encounter f or immunization Z23 ; Cough R05 and Nicotine abuse Z72.0 [place] [address] [address] Jan, Bipolar disorder, unspecifie d F31.9 and Diabetes mellitus without mention of complication, type II or unspecified type, uncontrolled 250.02 [place] [address] [address] Jan, [facility] [address] [facility] [id number] [address] [place] [address] Dec, Reactive airway disease 493. 90 and Enuresis 788.30 [place] [address] [facility] [id number] [address] [place] [address] Dec, [place] [address] [place] [id number] [address] [place] [address] Nov, [place] [address] [place] [id number] [address] [place] [address] Nov, [place] [address] [facility] [id number] [address] [place] [address] Nov, Annual physical exam V70.0 ; Urinary incontinence 788.30 ; Diabetes 250.00 and Hypertension 401.9 [place] [address] [place] [id number] [address] [place] [address] Oct, Diabetes mellitus without me ntion of complication, type II or unspecified type, uncontrolled 250.02 [place] [address] [place] [id number] [address] [place] [address] Oct, Diabetes mellitus without me ntion of complication, type II or unspecified type, uncontrolled 250.02 [place] [address] [place] [id number] [address] [place] [address] Oct, Diabetes mellitus without me ntion of complication, type II or unspecified type, uncontrolled 250.02 [place] [address] [place] [address] Oct, [facility] [address] [place] [id number] [address] [place] [address] Oct, [facility] [address] [place] [id number] [address] [place] [address] Oct, Bipolar disorder, unspecifie d 296.80 [facility] [address] [id number] [address] [place] [address] [id number] Sep, Dental examination V72.2 [facility] [address] [id number] [address] [place] [address] August, [facility] [address] [id number] [address] [place] [address] [id number] August, Dental examination V72.2 [facility] [address] [id number] [address] [place] [address], [place] [address] August, [facility] [address] [id number] [address] [place] [address] Jul, [facility] [address] [id number] [address] [place] [address], [place] [address] Jul, [facility] [address] [id number] [address] [place] [address] Jun, [facility] [address] [id number] [address] [place] [address] Jun, [facility] [address] [id number] [address] [place] [phone] Jun, [facility] [address] [id number] [address] [place] [address] Jun, [facility] [address] [id number] [address] [place] [address] May, [facility] [address] [id number] [address] [place] [address] May, [facility] [address] [id number] [address] [place] [address] May, [facility] [address] [id number] [address] [place] [address] May, [facility] [address] [id number] [address] [place] [phone] May, [facility] [address] [id number] [address] [place] [address] May, [facility] [address] [id number] [address] [place] [address], [place] [address] 16 May, 2014 [facility] [address] [id number] [address] [place] [address], [place] [address] May, 2014 [facility] [address] [id number] [address] [place] [address], [place] [address] 16 May, 2014 [facility] [address] [id number] [address] [place] [address], [place] [address] May, 2014 [facility] [address] [id number] [address] [place] [address], [place] [address] May, 2014 [facility] [address] [id number] [address] [place] [address], [place] [address] May, 2014 [facility] [address] [id number] [address] [place] [address], [place] [address] May, 2014 [facility] [address] [id number] [address] [place] [address], [place] [address] May, 2014 [facility] [address] [id number] [address] [place] [address], [place] [address] May, 2014 [facility] [address] [id number] [address] [place] [address], [place] [address] Apr, [facility] [address] [id number] [address] [place] [address], [place] [address] Apr, [facility] [address] [id number] [address] [place] [address], [place] [address] Apr, [facility] [address] [id number] [address] [place] [address], [place] [address] Apr, [facility] [address] [id number] [address] [place] [address], [place] [address] Apr, [facility] [address] [id number] [address] [place] [address], [place] [address] Apr, [facility] [address] [id number] [address] [place] [address], [place] [address] Apr, [facility] [address] [id number] [address] [place] [address], [place] [address] Apr, [facility] [address] [id number] [address] [place] [address], [place] [address] Apr, [facility] [address] [id number] [address] [place] [address], [place] [address] Apr, [facility] [address] [id number] [address] [place] [address], [place] [address] Apr, [facility] [address] [id number] [address] [place] [address], [place] [address] Apr, [facility] [address] [id number] [address] [place] [address], [place] [address] Mar, [facility] [address] [id number] [address] [place] [address], [place] [address] Mar, [facility] [address] [id number] [address] [place] [address], [place] [address] Mar, [facility] [address] [id number] [address] [place] [address], [place] [address] Mar, [facility] [address] [id number] [address] [place] [address], [place] [address] Mar, [facility] [address] [id number] [address] [place] [address], [place] [address] Mar, [facility] [address] [id number] [address] [place] [address], [place] [address] Feb, [facility] [address] [id number] [address] [place] [address], [place] [address] Feb, [facility] [address] [id number] [address] [place] [address], [place] [address] Feb, [facility] [address] [id number] [address] [place] [address], [place] [address] Feb, [facility] [address] [id number] [address] [place] [address], [place] [address] 14 Jan, 2014 [facility] [address] [id number] [address] [place] [address], [place] [address] 14 Jan, 2014 [facility] [address] [id number] [address] [place] [address], [place] [address] 14 Jan, 2014 [facility] [address] [id number] [address] [place] [address], [place] [address] 14 Jan, 2014 [facility] [address] [id number] [address] [place] [address], [place] [address] 22 Dec, 2013 [facility] [address] [id number] [address] [place] [address], [place] [address] 22 Dec, 2013 [facility] [address] [id number] [address] [place] [address], [place] [address] 15 Dec, 2013 [facility] [address] [id number] [address] [place] [address], [place] [address] 15 Dec, 2013 [facility] [address] [id number] [address] [place] [address], [place] [address] Nov, [facility] [address] [id number] [address] [place] [address], [place] [address] Nov, [facility] [address] [id number] [address] [place] [address], [place] [address] Nov, [facility] [address] [id number] [address] [place] [address], [place] [address] Nov, [facility] [address] [id number] [address] [place] [address], [place] [address] Nov, [facility] [address] [id number] [address] [place] [address], [place] [address] Nov, [facility] [address] [id number] [address] [place] [address], [place] [address] Nov, [facility] [address] [id number] [address] [place] [address], [place] [address] Oct, [facility] [address] [id number] [address] [place] [address], [place] [address] Oct, [facility] [address] [id number] [address] [place] [address], [place] [address] Oct, [facility] [address] [id number] [address] [place] [address], [place] [address] Oct, [facility] [address] [id number] [address] [place] [address], [place] [address] Oct, [facility] [address] [id number] [address] [place] [address], [place] [address] Oct, [facility] [address] [id number] [address] [place] [address], [place] [address] Oct, [facility] [address] [id number] [address] [place] [address], [place] [address] Sep, [facility] [address] [id number] [address] [place] [address], [place] [address] Sep, [facility] [address] [id number] [address] [place] [address], [place] [address] Sep, [facility] [address] [id number] [address] [place] [address], [place] [address] Sep, [facility] [address] [id number] [address] [place] [address], [place] [address] Sep, [facility] [address] [id number] [address] [place] [address], [place] [address] Jul, [facility] [address] [id number] [address] [place] [address], [place] [address] Jul, [facility] [address] [id number] [address] [place] [address], [place] [address] Jul, [facility] [address] [id number] [address] [place] [address], [place] [address] Jul, [facility] [address] [id number] [address] [place] [address], [place] [address] Jul, [facility] [address] [id number] [facility] [place] [address] Jul, [facility] [address] [id number] [address] [place] [address], [place] [address] Jul, [facility] [address] [id number] [address] [place] [address], [place] [address] Jul, [facility] [address] [id number] [address] [place] [address], [place] [address] Jul, [facility] [address] [id number] [address] [place] [address], [place] [address] Jul, [facility] [address] [id number] [address] [place] [address], [place] [address] Jul, [facility] [address] [id number] [address] [place] [address], [place] [address] Jul, [facility] [address] [id number] [address] [place] [address], [place] [address] Jun, [facility] [address] [id number] [address] [place] [address], [place] [address] Jun, [facility] [address] [id number] [address] [place] [address], [place] [address] Jun, [facility] [address] [id number] [address] [place] [address], [place] [address] Jun, [facility] [address] [id number] [address] [place] [address], [place] [address] Jun, [facility] [address] [id number] [address] [place] [address], [place] [address] Jun, [facility] [address] [id number] [address] [place] [address], [place] [address] Jun, [facility] [address] [id number] [address] [place] [address], [place] [address] Jun, [facility] [address] [id number] [address] [place] [address], [place] [address] May, [facility] [address] [id number] [address] [place] [address], [place] [address] May, [facility] [address] [id number] [address] [place] [address], [place] [address] May, [facility] [address] [id number] [address] [place] [address], [place] [address] May, [facility] [address] [id number] [address] [place] [address], [place] [address] May, [facility] [address] [id number] [address] [place] [address], [place] [address] May, [facility] [address] [id number] [address] [place] [address], [place] [address] May, [facility] [address] [id number] [address] [place] [address], [place] [address] May, [facility] [address] [id number] [address] [place] [address], [place] [address] Apr, [facility] [address] [id number] [address] [place] [address], [place] [address] Apr, [facility] [address] [id number] [address] [place] [address], [place] [address] Apr, [facility] [address] [id number] [address] [place] [address], [place] [address] Apr, [facility] [address] [id number] [address] [place] [address], [place] [address] Mar, [facility] [address] [id number] [address] [place] [address], [place] [address] Mar, [facility] [address] [id number] [address] [place] [address], [place] [address] Mar, [facility] [address] [id number] [address] [place] [address], [place] [address] Feb, [facility] [address] [id number] [address] [place] [address], [place] [address] Feb, [facility] [address] [id number] [address] [place] [address], [place] [address] Feb, [facility] [address] [id number] [address] [place] [address], [place] [address] Feb, [facility] [address] [id number] [address] [place] [address], [place] [address] Feb, [facility] [address] [id number] [address] [place] [address], [place] [address] Feb, [facility] [address] [id number] [address] [place] [address], [place] [address] Jan, [facility] [address] [id number] [address] [place] [address], [place] [address] Jan, [facility] [address] [id number] [address] [place] [address], [place] [address] Jan, [facility] [address] [id number] [address] [place] [address], [place] [address] Jan, [facility] [address] [id number] [address] [place] [address], [place] [address] Jan, [facility] [address] [id number] [address] [place] [address], [place] [address] Jan, [facility] [address] [id number] [address] [place] [address] Jan, [facility] [address] [id number] [address] [place] [address], [place] [address] 25 Dec, 2012 [facility] [address] [id number] [address] [place] [address], [place] [address] 16 Sep2012 [facility] [address] [id number] [address] [place] [address], [place] [address] 10 Dec, 2012 [facility] [address] [id number] [address] [place] [address], [place] [address] Dec, [facility] [address] [id number] [address] [place] [address], [place] [address] Nov, [facility] [address] [id number] [address] [place] [address], [place] [address] Nov, [facility] [address] [id number] [address] [place] [address], [place] [address] Nov, [facility] [address] [id number] [address] [place] [address], [place] [address] Nov, [facility] [address] [id number] [address] [place] [address], [place] [address] Nov, [facility] [address] [id number] [address] [place] [address], [place] [address] Nov, [facility] [address] [id number] [address] [place] [address], [place] [address] Nov, [facility] [address] [id number] [address] [place] [address], [place] [address] Oct, [facility] [address] [id number] [address] [place] [address], [place] [address] Oct, [facility] [address] [id number] [address] [place] [address], [place] [address] Oct, [facility] [address] [id number] [address] [place] [address], [place] [address] Oct, [facility] [address] [id number] [address] [place] [address], [place] [address] Oct, [facility] [address] [id number] [address] [place] [address], [place] [address] Oct, [facility] [address] [id number] [address] [place] [address], [place] [address] Oct, [facility] [address] [id number] [address] [place] [address], [place] [address] Oct, [facility] [address] [id number] [facility] [place] [address] Sep, [id number] [address]var[address] [id number] [place] [id number] August, [facility] [address] [id number] [facility] [place] [address] August, [facility] [address] [id number] [address] [place] [address], [place] [address] Jul, [facility] [address] [id number] [address] [place] [address], [place] [address] Jul, [facility] [address] [id number] [address] [place] [address], [place] [address] Jul, [facility] [address] [id number] [address] [place] [address], [place] [address] Jul, [facility] [address] [id number] [address] [place] [address], [place] [address] Jul, [facility] [address] [id number] [address] [place] [address], [place] [address] 17 Jul, 2012 [facility] [address] [id number] [address] [place] [address], [place] [address] Jul, [facility] [address] [id number] [address] [place] [address], [place] [address] Jun, [facility] [address] [id number] [address] [place] [address], [place] [address] 18 Jun, 2012 [facility] [address] [id number] [address] [place] [address], [place] [address] Jun, [facility] [address] [id number] [address] [place] [address], [place] [address] Jun, [facility] [address] [id number] [address] [place] [address], [place] [address] Jun, [facility] [address] [id number] [address] [place] [address], [place] [address] 19 May, 2012 [facility] [address] [id number] [address] [place] [address], [place] [address] 18 May, 2012 [facility] [address] [id number] [address] [place] [address], [place] [address] 04 May, 2012 [facility] [address] [id number] [address] [place] [address], [place] [address] 15 Apr, 2012 [facility] [address] [id number] [address] [place] [address], [place] [address] 14 Apr, 2012 [facility] [address] [id number] [address] [place] [address], [place] [address] 07 Apr, 2012 [facility] [address] [id number] [address] [place] [address], [place] [address] 31 Mar, 2012 [facility] [address] [id number] [address] [place] [address], [place] [address] 31 Mar, 2012 [facility] [address] [id number] [address] [place] [address], [place] [address] Mar, [facility] [address] [id number] [address] [place] [address], [place] [address] Mar, [facility] [address] [id number] [address] [place] [address], [place] [address] 10 Mar, 2012 [facility] [address] [id number] [address] [place] [address], [place] [address] Mar, [facility] [address] [id number] [address] [place] [address], [place] [address] Feb, [facility] [address] [id number] [address] [place] [address], [place] [address] Feb, [facility] [address] [id number] [address] [place] [address], [place] [address] Jan, [facility] [address] [id number] [address] [place] [address], [place] [address] Jan, [facility] [address] [id number] [address] [place] [address], [place] [address] Dec, [facility] [address] [id number] [address] [place] [address], [place] [address] Nov, [facility] [address] [id number] [address] [place] [address], [place] [address] Nov, [facility] [address] [id number] [address] [place] [address], [place] [address] Nov, [facility] [address] [id number] [address] [place] [address], [place] [address] Nov, [facility] [address] [id number] [address] [place] [address], [place] [address] Oct, [facility] [address] [id number] [address] [place] [address], [place] [address] Oct, [facility] [address] [id number] [address] [place] [address], [place] [address] Oct, [facility] [address] [id number] [address] [place] [address], [place] [address] Sep, [facility] [address] [id number] [address] [place] [address], [place] [address] Sep, [facility] [address] [id number] [address] [place] [address], [place] [address] Sep, [facility] [address] [id number] [address] [place] [address], [place] [address] August, [facility] [address] [id number] [address] [place] [address], [place] [address] August, [facility] [address] [id number] [address] [place] [address], [place] [address] Jul, [facility] [address] [id number] [address] [place] [address], [place] [address] Jul, [facility] [address] [id number] [address] [place] [address], [place] [address] 17 Jul, 2011 [facility] [address] [id number] [address] [place] [address], [place] [address] Jul, [facility] [address] [id number] [address] [place] [address], [place] [address] Jun, [facility] [address] [id number] [address] [place] [address], [place] [address] May, [facility] [address] [id number] [address] [place] [address], [place] [address] Apr, [facility] [address] [id number] [address] [place] [address], [place] [address] Apr, [facility] [address] [id number] [address] [place] [address], [place] [address] Apr, [facility] [address] [id number] [address] [place] [address], [place] [address] Apr, [facility] [address] [id number] [address] [place] [address], [place] [address] Apr, [facility] [address] [id number] [address] [place] [address], [place] [address] Apr, [facility] [address] [id number] [address] [place] [address], [place] [address] Mar, [facility] [address] [id number] [address] [place] [address], [place] [address] Mar, [facility] [address] [id number] [address] [place] [address], [place] [address] Feb, [facility] [address] [id number] [address] [place] [address], [place] [address] 18 Feb, 2011 [facility] [address] [id number] [address] [place] [address], [place] [address] 17 Feb, 2011 [facility] [address] [id number] [address] [place] [address], [place] [address] 09 Feb, 2011 [facility] [address] [id number] [address] [place] [address], [place] [address] 20 Jan, 2011 [facility] [address] [id number] [address] [place] [address], [place] [address] 18 Jan, 2011 [facility] [address] [id number] [address] [place] [address], [place] [address] 18 Jan, 2011 [facility] [address] [id number] [address] [place] [address], [place] [address] 18 Jan, 2011 [facility] [address] [id number] [address] [place] [address], [place] [address] 17 Nov, 2010 [facility] [address] [id number] [address] [place] [address], [place] [address] 03 Mar, 2010 [facility] [address] [id number] [address] [place] [address], [place] [address] Mar, [facility] [address] [id number] [address] [place] [address], [place] [address] 30 Feb, 2010 [facility] [address] [id number] [address] [place] [address], [place] [address] 15 Feb, 2010 [facility] [address] [id number] [address] [place] [address], [place] [address] Jan, [facility] [address] [id number] [address] [place] [address], [place] [address] 19 Jan, 2010 [facility] [address] [id number] [address] [place] [address], [place] [address] 15 Sep, 2009 [facility] [address] [id number] [address] [place] [address], [place] [address] 16 May, 2009 [facility] [address] [id number] [address] [place] [address], [place] [address] Apr, [facility] [address] [id number] [address] [place] [address], [place] [address] Mar, [facility] [address] [id number] [address] [place], [place] [address] [address] Feb, [facility] [address] [id number] [address] [place] [id number] Feb, [facility] [address] [id number] [address] [place] [id number] Feb, [facility] [address] [id number] [address] [place] [id number] Jan, [facility] [address] [id number] [address] [place] [id number] Jan, [facility] [address] [id number] [address] [place] [address] Jan, [facility] [address] [id number] [address] [place] [id number] Jan, [facility] [address] [id number] [address] [place] [id number] August, IMMUNIZATIONS No Known Immunizations SOCIAL HISTORY [...] age 6 Hospitalization History surgery Hospitalization History [facility], tom webber treatment few times for BH
--- OUTSIDE RECORDS SUMMARY | 2019-09-29 10:42 | XMS REPORT ---
Author Author Cameron Estrella Doctor Organization [facility] Address Unknown Phone Unavailable Care Team Providers Care Technical Assistant Name Role Phone Migration, Doctor Unavailable Unavailable PROBLEMS Type Condition ICD9-CM Code TRE32-YV Code Onset Dates Condition S tatus SNOMED Code Problem Adjustment disorder, unspecified type F43.20 Active 27681602 Problem Reactive airway disease, unspecified asthma justin rity, uncomplicated J45.909 Active 852903146027 Problem Hypertensive retinopathy of both eyes H35.033 Active 5413524 Problem Open-angle glaucoma of both eyes, unspecified glaucoma stage, unspecified open-angle glaucoma type H40.10X0 Acti ve 65368147 Problem Essential hypertension I10 Active 96974220 Problem Obstructive sleep apnea G47.33 Active 67764595 Problem Intermittent explosive disorder F63.81 Active 30878775 Problem Type 2 diabetes mellitus with complication E11.8 Active 20511012 Problem Bipolar disorder, in partial remission, most rec ent episode manic F31.73 Active 60745790 Problem Intermittent explosive disorder in adult F63.81 Active 37116540 Problem Bipolar disorder, unspecified F31.9 Active 84043911 Problem Neuropathy G62.9 Active 416153516 Problem Diabetes E11.9 Active 20677384 Problem Other specified urinary incontinence N39.498 Active 650900544 Problem Depression F32.9 Active 59752603 Problem 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 Active 73833817 Problem Mild intellectual disability F70 A ctive 09546950 Problem Reactive airway disease, mild intermittent, uncomplicated J45.20 Active 629863220 Problem Gastroesophageal reflux disease without esophagitis K21.9 Active 978224606 Problem Other diabetic neurological complication associated with type 2 diabetes mellitus E11.49 Active 342127509 ALLERGIES No Information ENCOUNTERS Encounter Location Date Diagnosis [facility] [address] [id number] [place] [address] August, [facility] [address] [id number] [place] [address] Jul, [facility] [id number] [place] [address] Jul, [facility] [address] [address] Apr, Intermittent explosive disorder in adult F63.81 ; Bipolar disorder, unspecified F31.9 and Mild intellectual disability F70 [facility] [address] [facility] [address] [id number] [address] Apr, Oral health maintenance stat us requiring routine preventive dental care K08.9 [facility] [address] [address] Apr, Type 2 diabetes mellitus with complicati on E11.8 ; History of test for hearing Z92.89 ; Colon cancer screening Z12.11 ; Other specified urinary incontinence N39.498 and Impacted cerumen, right ear H61.21 [place] [address] [address] Apr, Onychomycosis B35.1 ; Other diabetic luc rological complication associated with type 2 diabetes mellitus E11.49 and Tinea pedis of both feet B35.3 [place] [address] [address] Feb, [facility] [address] [address] Jan, [facility] [address] [address] Jan, [facility] [address] [address] Jan, [facility] [address] [address] Jan, [facility] [address] [address] Jan, [facility] [address] [address] Jan, [place] [address] [address] Jan, [place] [address] [address] Jan, Anemia D64.9 [facility] [address] [facility] [address] [id number] [place] [address] 04 Jan, 2019 Dental examination Z01.20 an d Oral health maintenance status requiring routine preventive dental care K08.9 [place] [address] [address] Jan, Onychomycosis B35.1 and Other diabetic n eurological complication associated with type 2 diabetes mellitus E11.49 [place] [address] [address] Jan, Anemia D64.9 [place] [address] [address] Jan, [place] [address] [address] Dec, Urinary tract infection without hematuri a, site unspecified N39.0 [place] [address] [address] Dec, Type 2 diabetes mellitus with complicati on E11.8 ; Urinary tract infection without hematuria, site unspecified N39.0 ; Impacted cerumen of both ears H61.23 ; Encounter for immunization Z23 and Hyponatremia E87.1 [place] [address] [address] Dec, Intermittent explosive disorder in adult F63.81 ; Dysuria R30.0 ; Type 2 diabetes mellitus with complication E11.8 ; Bipolar disorder, unspecified F31.9 and Mild intellectual disability F70 [place] [address] [address] Dec, Dysuria R30.0 [place] [address] [address] Dec, Intermittent explosive disorder in adult F63.81 ; Bipolar disorder, unspecified F31.9 and Mild intellectual disability F70 [facility] [address] [address] Nov, [facility] [address] [address] Oct, [facility] [address] [address] [id number] [place] [address] Oct, Oral health maintenance stat us requiring routine preventive dental care K08.9 [facility] [address] [address] August, Intermittent explosive disorder in adult F63.81 ; Bipolar disorder, unspecified F31.9 and Mild intellectual disability F70 [facility] [address] [id number] August, Dental caries K02.9 [facility] [address] [address] Jul, Onychomycosis B35.1 ; Other diabetic luc rological complication associated with type 2 diabetes mellitus E11.49 and Tinea pedis of both feet B35.3 [facility] [address] [id number] Jul, Caries K02.9 [facility] [address] [address] Jul, Type 2 diabetes mellitus with complicati on E11.8 ; Tobacco abuse Z72.0 and Bipolar disorder, unspecified F31.9 [facility] [address] [address] Jun, [facility] [address] [id number] Jun, Dental examination Z01.20 and Oral healt h maintenance status requiring routine preventive dental care K08.9 [facility] [address] [address] May, Bilateral impacted cerumen H61.23 [facility] [id number] [place] [address] Apr, Bipolar disorder, unspecified F31.9 ; In termittent explosive disorder in adult F63.81 ; Type 2 diabetes mellitus with complication E11.8 ; Tobacco abuse Z72.0 and Colon cancer screening Z12.11 [facility] [id number] [place] [address] Apr, Onychomycosis B35.1 and Other diabetic n eurological complication associated with type 2 diabetes mellitus E11.49 [facility] [address] [address] Apr, Intermittent explosive disorder in adult F63.81 ; Bipolar disorder, unspecified F31.9 and Mild intellectual disability F70 [facility] [id number] [place] [address] Mar, Diabetes E11.9 [facility] [address] [facility] [id number] [address] [place] [address] Jan, Encounter for immunization Z 23 [facility] [address] [address] Jan, Tinea pedis of both feet B35.3 ; Other d iabetic neurological complication associated with type 2 diabetes mellitus E11.49 and Onychomycosis B35.1 [facility] [id number] [place] [address] Nov, Type 2 diabetes mellitus with complicati on E11.8 [facility] [id number] [place] [address] Nov, [facility] [address] [address] Oct, Intermittent explosive disorder in adult F63.81 ; Bipolar disorder, unspecified F31.9 and Mild intellectual disability F70 [facility] [id number] [place] [address] Oct, [facility] [id number] [place] [id number] Oct, Dental examination Z01.20 [place] [address] [address] Oct, Onychomycosis B35.1 and Other diabetic n eurological complication associated with type 2 diabetes mellitus E11.49 [place] [address] [address] Sep, Type 2 diabetes mellitus with complicati on E11.8 and Colon cancer screening Z12.11 [place] [address] [address] 18 Sep, 2017 Type 2 diabetes mellitus with complicati on E11.8 ; Colon cancer screening Z12.11 and Neuropathy G62.9 [place] [address] [address] August, Diabetes E11.9 [facility] [address] [id number] Jul, Dental examination Z01.20 [place] [address] [address] May, Mild intellectual disability F70 [place] [address] [address] May, Mild intellectual disability F70 ; High risk medication use Z79.899 ; Intermittent explosive disorder in adult F63.81 and Bipolar disorder, unspecified F31.9 [place] [address] [address] May, [place] [address] [address] May, [place] [address] [address] Apr, Type 2 diabetes mellitus with complicati on E11.8 ; Mild intellectual disability F70 ; Gastroesophageal reflux disease without esophagitis K21.9 ; Reactive airway disease, mild intermittent, uncomplicated J45.20 and Tobacco abuse Z72.0 [place] [address] [address] 09 Apr, 2017 High risk medication use Z79.899 ; Mild intellectual disability F70 ; Intermittent explosive disorder in adult F63.81 and Bipolar disorder, unspecified F31.9 [facility] [address] [id number] Mar, Encounter for dental exam and cleaning w /o abnormal findings Z01.20 [facility] [address] [id number] 27 Mar, 2017 Dental examination Z01.20 [facility] [address] [address] 12 Jan, 2017 [facility] [address] [address] Jan, [facility] [address] [address] Jan, Mild intellectual disability F70 ; Bipol ar disorder, unspecified F31.9 and Intermittent explosive disorder in adult F63.81 [facility] [address] [address] 02 Jan, 2017 Diabetes E11.9 [facility] [address] [id number] 13 Dec, 2016 Encounter for dental examination and osei aning without abnormal findings Z01.20 [facility] [address] [address] 12 Dec, 2016 Bipolar disorder, unspecified F31.9 ; In termittent explosive disorder in adult F63.81 and Mild intellectual disability F70 [facility] [address] [address] Nov, Diabetes E11.9 [facility] [address] [address] Nov, [facility] [address] [address] Nov, Diabetes E11.9 and Colon cancer screenin g Z12.11 [facility] [id number] [place] [id number] 21 Sep, 2016 Dental examination Z01.20 [facility] [address] [id number] 21 Sep, 2016 Encounter for dental examination and osei aning without abnormal findings Z01.20 [facility] [address] [place] [address] 13 Sep, 2016 Bipolar disorder, unspecified F31.9 [facility] [address] [address] 12 Sep, 2016 Bipolar disorder, unspecified F31.9 [facility] [address] [place] [address] Jul, [facility] [address] [address] Jul, Type 2 diabetes mellitus with complicati on E11.8 [facility] [address] [id number] 15 Jun, 2016 Encounter for dental examination and osei aning without abnormal findings Z01.20 [facility] [address] [facility] [address] [id number] [id number] 15 Jun, 2016 Dental examination Z01.20 [facility] [address] [address] 18 Apr, 2016 Sports physical Z02.5 [facility] [address] [place] [address] 14 Mar, 2016 Bipolar disorder, in partial remission, most recent episode manic F31.73 and Intermittent explosive disorder in adult F63.81 [facility] [address] [place] [address] [id number] 08 Mar, 2016 [facility] [address] [place] [address] [id number] 06 Mar, 2016 Diabetes E11.9 [facility] [address] [id number] Feb, Encounter for dental examination and osei aning without abnormal findings Z01.20 [facility] [id number] [place] [address] 22 Dec, 2015 Nocturnal hypoxemia G47.34 and Encounter for immunization Z23 [facility] [address] [address] 15 Dec, 2015 [facility] [address] [address] Dec, [facility] [address] [address] Dec, Bipolar disorder, unspecified F31.9 [facility] [id number] [place] [id number] Oct, Encounter for dental examination and osei aning without abnormal findings Z01.20 [facility] [address] [facility] [address] [id number] [id number] Oct, Dental examination Z01.20 [facility] [address] [address] 07 Oct, 2015 Diabetes E11.9 [place] [address] [address] Oct, Diabetes E11.9 ; Reactive airway disease , mild intermittent, uncomplicated J45.20 and Tobacco abuse Z72.0 [place] [address] [address] Sep, Bipolar disorder, unspecified F31.9 and Depression F32.9 [facility] [address] [address] Sep, [place] [address] [address] August, Tinea pedis of both feet B35.3 and DM w/ o complication type II, uncontrolled E11.65 [facility] [address] [address] Jul, [place] [address] [address] Jul, [place] [address] [address] Jul, Obstructive sleep apnea G47.33 [place] [address] [address] Jun, Diabetes E11.9 [place] [address] [address] Jun, [place] [address] [address] Jun, [place] [address] [address] Jun, Bipolar disorder, unspecified F31.9 and Mental retardation F79 [address] [address] Apr, [place] [address] [address] Feb, Diabetes E11.9 ; Encounter for immunizat ion Z23 ; Cough R05 and Nicotine abuse Z72.[address] [address] Jan, Bipolar disorder, unspecified F31.9 and Diabetes mellitus without mention of complication, type II or unspecified type, uncontrolled 250.[address] [address] Jan, [address] [address] Dec, Reactive airway disease 493.90 and Enure sis 788.30 [place] [address] [address] Dec, [address] [address] Nov, [place] [address] [address] Nov, [address] [place] [address] Nov, Annual physical exam V70.0 ; Urinary inc ontinence 788.30 ; Diabetes 250.00 and Hypertension 401.9 [facility] [address] [address] Oct, Diabetes mellitus without mention of com plication, type II or unspecified type, uncontrolled 250.02 [facility] [address] [address] Oct, Diabetes mellitus without mention of com plication, type II or unspecified type, uncontrolled 250.02 [facility] [address] [address] Oct, Diabetes mellitus without mention of com plication, type II or unspecified type, uncontrolled 250.02 [facility] [address] [address] Oct, [facility] [address] [address] Oct, [facility] [address] [address] Oct, Bipolar disorder, unspecified 296.80 [facility] [address] [id number] Sep, Dental examination V72.2 [facility] [address] [address] August, [facility] [address] [id number] August, Dental examination V72.2 [facility] [address] [address] August, [facility] [address] [address] Jul, [facility] [address] [address] Jul, [facility] [address] [address] 17 Jun, 2014 [facility] [address] [facility] [id number] [place] [address] 17 Jun, 2014 [facility] [address] [facility] [id number] [place] [address] 17 Jun, 2014 [facility] [address] [id number] [place] [address] Jun, 2014 [facility] [address] [facility] [id number] [place] [address] May, 2014 [facility] [address] [facility] [id number] [place] [address] May, 2014 [facility] [address] [id number] [place] [address] 16 May, 2014 [facility] [address] [id number] [place] [address] 16 May, 2014 [facility] [address] [id number] [place] [address] 16 May, 2014 [facility] [address] [id number] [place] [address] 16 May, 2014 [facility] [address] [id number] [place] [address] 16 May, 2014 [facility] [address] [id number] [place] [address] 16 May, 2014 [facility] [address] [id number] [place] [address] 16 May, 2014 [facility] [address] [facility] [id number] [place] [address] 16 May, 2014 [facility] [address] [id number] [place] [address] 16 May, 2014 [facility] [address] [id number] [place] [address] 16 May, 2014 [facility] [address] [id number] [place] [address] May, [facility] [address] [facility] [id number] [place] [address] May, [facility] [address] [facility] [id number] [place] [address] May, [facility] [address] [id number] [place] [address] Apr, [facility] [address] [id number] [place] [address] Apr, [facility] [address] [facility] [id number] [place] [address] Apr, [facility] [address] [id number] [place] [address] Apr, [facility] [address] [id number] [place] [address] Apr, [facility] [address] [id number] [place] [address] Apr, [facility] [address] [id number] [place] [address] Apr, [facility] [address] [id number] [place] [address] Apr, [facility] [address] [id number] [place] [address] Apr, [facility] [address] [id number] [place] [address] Apr, [facility] [address] [facility] [id number] [place] [address] Apr, [facility] [address] [id number] [place] [address] Apr, [facility] [address] [id number] [place] [address] Mar, [facility] [address] [id number] [place] [address] Mar, [facility] [address] [id number] [place] [address] 10 Mar, 2014 [facility] [address] [facility] [id number] [place] [address] 10 Mar, 2014 [facility] [address] [id number] [place] [address] Mar, [facility] [address] [id number] [place] [address] Mar, [facility] [address] [id number] [place] [address] Feb, [facility] [address] [id number] [place] [address] Feb, [facility] [address] [id number] [place] [address] Feb, [facility] [address] [id number] [place] [address] Feb, [facility] [address] [id number] [place] [address] 14 Jan, 2014 [facility] [address] [id number] [place] [address] 14 Jan, 2014 [facility] [address] [id number] [place] [address] 14 Jan, 2014 [facility] [address] [id number] [place] [address] 14 Jan, 2014 [facility] [address] [id number] [place] [address] 22 Dec, 2013 [facility] [address] [id number] [place] [address] 22 Dec, 2013 [facility] [address] [id number] [place] [address] 15 Dec, 2013 [facility] [address] [id number] [place] [address] 15 Dec, 2013 [facility] [address] [id number] [place] [address] Nov, [facility] [address] [id number] [place] [address] Nov, [facility] [address] [facility] [id number] [place] [address] Nov, [facility] [address] [facility] [id number] [place] [address] Nov, [facility] [address] [id number] [place] [address] Nov, [facility] [address] [facility] [id number] [place] [address] Nov, [facility] [address] [facility] [id number] [place] [address] Nov, [facility] [address] [id number] [place] [address] Oct, [facility] [address] [id number] [place] [address] Oct, [facility] [address] [id number] [place] [address] Oct, [facility] [address] [id number] [place] [address] Oct, [facility] [address] [id number] [place] [address] Oct, [facility] [address] [id number] [place] [address] Oct, [facility] [address] [id number] [place] [address] Oct, [facility] [address] [facility] [id number] [place] [address] Sep, [facility] [address] [id number] [place] [address] Sep, [facility] [address] [id number] [place] [address] Sep, [facility] [address] [id number] [place] [address] Sep, [facility] [address] [facility] [id number] [place] [address] Sep, [facility] [address] [facility] [id number] [place] [address] Jul, [facility] [address] [id number] [place] [address] Jul, [facility] [address] [id number] [place] [address] Jul, [facility] [address] [facility] [id number] [place] [address] Jul, [facility] [address] [id number] [place] [address] Jul, [facility] [address] [id number] [place] [address] Jul, [facility] [address] [id number] [place] [address] Jul, [facility] [address] [id number] [place] [address] Jul, [facility] [address] [id number] [place] [address] Jul, [facility] [address] [id number] [place] [address] Jul, [facility] [facility] [address] [id number] [place] [address] Jul, [facility] [place] [facility] [address] [id number] [place] [address] Jul, [facility] [place] [facility] [address] [id number] [place] [address] Jun, [facility] [place] [facility] [address] [id number] [place] [address] Jun, [facility] [place] [facility] [address] [id number] [place] [address] Jun, [facility] [place] [facility] [address] [id number] [place] [address] Jun, [facility] [place] [facility] [address] [facility] [id number] [place] [address] Jun, [facility] [place] [facility] [address] [id number] [place] [address] Jun, [facility] [place] [facility] [address] [id number] [place] [address] Jun, [facility] [place] [facility] [address] [id number] [place] [address] Jun, [facility] [place] [facility] [address] [id number] [place] [address] May, [facility] [place] [facility] [address] [id number] [place] [address] May, [facility] [place] [facility] [address] [id number] [place] [address] May, [facility] [place] [facility] [address] [id number] [place] [address] May, [facility] [place] [facility] [address] [id number] [place] [address] May, [facility] [place] [facility] [address] [id number] [place] [address] May, [facility] [place] [facility] [address] [id number] [place] [address] May, [facility] [place] [facility] [address] [id number] [place] [address] May, [facility] [place] [facility] [address] [id number] [place] [address] Apr, [facility] [place] [facility] [address] [id number] [place] [address] Apr, [facility] [place] [facility] [address] [id number] [place] [address] Apr, [facility] [place] [facility] [address] [id number] [place] [address] Apr, [facility] [place] [facility] [address] [id number] [place] [address] Mar, [facility] [place] [facility] [address] [id number] [place] [address] Mar, [facility] [place] [facility] [address] [id number] [place] [address] Mar, [facility] [place] [facility] [address] [id number] [place] [address] Feb, [facility] [place] [facility] [address] [id number] [place] [address] Feb, [facility] [place] [facility] [address] [id number] [place] [address] Feb, [facility] [place] [facility] [address] [id number] [place] [address] Feb, [facility] [place] [facility] [address] [id number] [place] [address] Feb, [facility] [place] [facility] [address] [id number] [place] [address] Feb, [facility] [place] [facility] [address] [id number] [place] [address] Jan, [facility] [place] [facility] [address] [id number] [place] [address] Jan, [facility] [place] [facility] [address] [id number] [place] [address] Jan, [facility] [place] [facility] [address] [id number] [place] [address] Jan, [facility] [place] [facility] [address] [id number] [place] [address] Jan, [facility] [place] [facility] [address] [id number] [place] [address] Jan, [facility] [place] [facility] [address] [id number] [place] [address] Jan, [facility] [place] [facility] [address] [id number] [place] [address] Dec, 2012 [facility] [place] [facility] [address] [id number] [place] [address] 16 Dec, 2012 [facility] [place] [facility] [address] [facility] [id number] [place] [address] Dec, [facility] [place] [facility] [address] [id number] [place] [address] Dec, [facility] [place] [facility] [address] [id number] [place] [address] Nov, [facility] [place] [facility] [address] [facility] [id number] [place] [address] Nov, [facility] [place] [facility] [address] [id number] [place] [address] Nov, [facility] [place] [facility] [address] [id number] [place] [address] Nov, [facility] [place] [facility] [address] [id number] [place] [address] Nov, [facility] [place] [facility] [address] [id number] [place] [address] Nov, [facility] [place] [facility] [address] [id number] [place] [address] Nov, [facility] [place] [facility] [address] [id number] [place] [address] Oct, [facility] [place] [facility] [address] [id number] [place] [address] Oct, [facility] [place] [facility] [address] [facility] [id number] [place] [address] Oct, [facility] [place] [facility] [address] [id number] [place] [address] Oct, [facility] [place] [facility] [address] [id number] [place] [address] Oct, [facility] [place] [facility] [address] [id number] [place] [address] Oct, [facility] [place] [facility] [address] [id number] [place] [address] Oct, [facility] [place] [facility] [address] [id number] [place] [address] Oct, [facility] [place] [facility] [address] [id number] [place] [address] Sep, [facility] [address] [facility] [id number] [place] [id number] August, [facility] [place] [facility] [address] [id number] [place] [address] August, [facility] [place] [facility] [address] [id number] [place] [address] Jul, [facility] [place] [facility] [address] [id number] [place] [address] Jul, [facility] [place] [facility] [address] [id number] [place] [address] Jul, [facility] [place] [facility] [address] [id number] [place] [address] Jul, [facility] [place] [facility] [address] [id number] [place] [address] Jul, [facility] [place] [facility] [address] [id number] [place] [address] Jul, [facility] [place] [facility] [address] [id number] [place] [address] 16 Jul, 2012 [facility] [place] [facility] [address] [id number] [place] [address] Jun, [facility] [place] [facility] [address] [id number] [place] [address] 18 Jun, 2012 [facility] [place] [facility] [address] [id number] [place] [address] Jun, [facility] [place] [facility] [address] [id number] [place] [address] 04 Jun, 2012 [facility] [place] [facility] [address] [id number] [place] [address] Jun, [facility] [place] [facility] [address] [id number] [place] [address] May, [facility] [place] [facility] [address] [id number] [place] [address] May, [facility] [place] [facility] [address] [id number] [place] [address] May, [facility] [place] [facility] [address] [id number] [place] [address] Apr, [facility] [place] [facility] [address] [id number] [place] [address] Apr, [facility] [place] [facility] [address] [id number] [place] [address] Apr, [facility] [place] [facility] [address] [id number] [place] [address] Mar, [facility] [place] [facility] [id number] [place] [address] Mar, [facility] [place] [facility] [address] [id number] [place] [address] Mar, [facility] [place] [facility] [id number] [place] [address] Mar, [facility] [place] [facility] [address] [id number] [place] [address] Mar, [facility] [place] [facility] [id number] [place] [address] Mar, [facility] [place] [facility] [address] [id number] [place] [address] Feb, [facility] [place] [facility] [id number] [place] [address] Feb, [facility] [place] [facility] [address] [id number] [place] [address] Jan, [facility] [place] [facility] [id number] [place] [address] Jan, [facility] [place] [facility] [address] [facility] [id number] [place] [address] Dec, [facility] [place] [facility] [address] [id number] [place] [address] Nov, [facility] [place] [facility] [address] [id number] [place] [address] Nov, [facility] [place] [facility] [address] [id number] [place] [address] Nov, [facility] [place] [facility] [address] [id number] [place] [address] Nov, [facility] [place] [facility] [address] [id number] [place] [address] Oct, [facility] [place] [facility] [address] [id number] [place] [address] Oct, [facility] [place] [facility] [address] [id number] [place] [address] Oct, [facility] [place] [facility] [address] [id number] [place] [address] Sep, [facility] [place] [facility] [address] [id number] [place] [address] Sep, [facility] [place] [facility] [address] [id number] [place] [address] Sep, [facility] [place] [facility] [address] [id number] [place] [address] August, [facility] [place] [facility] [address] [id number] [place] [address] August, [facility] [place] [facility] [address] [id number] [place] [address] Jul, [facility] [place] [facility] [address] [id number] [place] [address] 24 Jul, 2011 [facility] [place] [facility] [address] [id number] [place] [address] Jul, [facility] [place] [facility] [address] [id number] [place] [address] Jul, [facility] [address] [id number] [place] [address] Jun, [facility] [place] [facility] [address] [id number] [place] [address] May, [facility] [place] [facility] [address] [id number] [place] [address] Apr, [facility] [place] [facility] [id number] [place] [address] Apr, [facility] [place] [facility] [address] [id number] [place] [address] Apr, [facility] [place] [facility] [id number] [place] [address] Apr, [facility] [place] [facility] [address] [id number] [place] [address] Apr, [facility] [place] [facility] [id number] [place] [address] Apr, [facility] [place] [facility] [address] [id number] [place] [address] Mar, [facility] [place] [facility] [id number] [place] [address] Mar, [facility] [place] [facility] [address] [id number] [place] [address] Feb, [facility] [place] [facility] [id number] [place] [address] Feb, [facility] [place] [facility] [address] [id number] [place] [address] Feb, [facility] [place] [facility] [address] [id number] [place] [address] Feb, [facility] [place] [facility] [address] [id number] [place] [address] Jan, [facility] [place] [facility] [address] [id number] [place] [address] Jan, [facility] [place] [facility] [address] [id number] [place] [address] 18 Jan, 2011 [facility] [place] [facility] [address] [id number] [place] [address] 18 Jan, 2011 [facility] [place] [facility] [address] [id number] [place] [address] Nov, [facility] [place] [facility] [address] [id number] [place] [address] Mar, [facility] [place] [facility] [address] [id number] [place] [address] Mar, [facility] [place] [facility] [address] [id number] [place] [address] Feb, [facility] [place] [facility] [address] [id number] [place] [address] Feb, [facility] [place] [facility] [address] [id number] [place] [address] Jan, [facility] [place] [facility] [address] [id number] [place] [address] Jan, [facility] [place] [facility] [address] [id number] [place] [address] Sep, [facility] [place] [facility] [address] [id number] [place] [address] May, [facility] [place] [facility] [address] [id number] [place] [address] Apr, [facility] [place] [facility] [address] [id number] [place] [address] Mar, [facility] [place] [facility] [address] [id number] [place] [address] 15 Feb, 2009 [facility] [place] [facility] [address] [id number] [place] [address] Feb, [facility] [place] [facility] [address] [id number] [place] [address] Feb, [facility] [place] [facility] [address] [id number] [place] [address] 22 Jan, 2009 [facility] [place] [facility] [address] [id number] [place] [address] 13 Jan, 2009 [facility] [address] [id number] [place] [address] 13 Jan, 2009 [facility] [address] [id number] [place] [address] 11 Jan, 2009 [facility] [address] [id number] [place] [address] August, IMMUNIZATIONS No Known Immunizations SOCIAL HISTORY [...] age 6 Hospitalization History surgery Hospitalization History [facility], indeann webber treatment few times for BH
--- OUTSIDE RECORDS SUMMARY | 2019-09-29 10:42 | XMS REPORT ---
Author Author Cameron ALANIZ 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 Active 62995772 Problem Open-angle glaucoma of both eyes, unspecified glaucoma stage, unspecified open-angle glaucoma type H40.10X0 Acti ve 86377459 Problem Adjustment disorder, unspecified type F43.20 Active 78072953 Problem Obstructive sleep apnea G47.33 Active 19142175 Problem Hypertensive retinopathy of both eyes H35.033 Active 2099770 Problem Type 2 diabetes mellitus with complication E11.8 Active 71410970 Problem Essential hypertension I10 Active 23022909 Problem Diabetes E11.9 Active 16845395 Problem Bipolar disorder, in partial remission, most rec ent episode manic F31.73 Active 00430263 Problem Intermittent explosive disorder in adult F63.81 Active 31765175 Problem Other diabetic neurological complication associated with type 2 diabetes mellitus E11.49 Active 076196978 Problem Depression F32.9 Active 24258014 Problem Neuropathy G62.9 Active 763716163 Problem Intermittent explosive disorder F63.81 Active 25603710 Problem Bipolar disorder, unspecified F31.9 Active 98213772 Problem Mild intellectual disability F70 A ctive 88858799 Problem Reactive airway disease, mild intermittent, uncomplicated J45.20 Active 857231452 Problem Gastroesophageal reflux disease without esophagitis K21.9 Active 549547512 ALLERGIES No Information ENCOUNTERS Encounter Location Date Diagnosis [facility] [address] [id number] [place] [address] Jul, [facility] [id number] [place] [address] Apr, [facility] [address] [address] [id number] [address] Apr, [facility] [id number] [place] [address] Apr, [facility] [id number] [place] [address] Apr, Onychomycosis B35.1 ; Other diabetic luc rological complication associated with type 2 diabetes mellitus E11.49 and Tinea pedis of both feet B35.3 [facility] [address] [address] Feb, [facility] [address] [address] Jan, [facility] [address] [address] Jan, [facility] [address] [address] Jan, [facility] [address] [address] Jan, [facility] [address] [address] Jan, [facility] [address] [address] Jan, [facility] [address] [address] Jan, [facility] [address] [address] Jan, Anemia D64.9 [facility] [address] [address] [id number] [address] Jan, Dental examination Z01.20 an d Oral health maintenance status requiring routine preventive dental care K08.9 [facility] [address] [address] Jan, Onychomycosis B35.1 and Other diabetic n eurological complication associated with type 2 diabetes mellitus E11.49 [facility] [address] [address] Jan, Anemia D64.9 [facility] [address] [address] Jan, [facility] [address] [address] Dec, Urinary tract infection without hematuri a, site unspecified N39.0 [place] [address] [address] Dec, Type 2 diabetes mellitus with complicati on E11.8 ; Urinary tract infection without hematuria, site unspecified N39.0 ; Impacted cerumen of both ears H61.23 ; Encounter for immunization Z23 and Hyponatremia E87.1 [facility] [address] [address] Dec, Intermittent explosive disorder in adult F63.81 ; Dysuria R30.0 ; Type 2 diabetes mellitus with complication E11.8 ; Bipolar disorder, unspecified F31.9 and Mild intellectual disability F70 [facility] [address] [address] Dec, Dysuria R30.0 [facility] [address] [address] Dec, Intermittent explosive disorder in adult F63.81 ; Bipolar disorder, unspecified F31.9 and Mild intellectual disability F70 [facility] [address] [address] Nov, [facility] [address] [address] Oct, [facility] [address] [facility] [address] [id number] [address] Oct, Oral health maintenance stat us requiring routine preventive dental care K08.9 [facility] [address] [address] August, Intermittent explosive disorder in adult F63.81 ; Bipolar disorder, unspecified F31.9 and Mild intellectual disability F70 [facility] [address] [id number] August, Dental caries K02.9 [facility] [address] [address] Jul, Onychomycosis B35.1 ; Other diabetic luc rological complication associated with type 2 diabetes mellitus E11.49 and Tinea pedis of both feet B35.3 [facility] [address] [id number] Jul, Caries K02.9 [facility] [address] [address] Jul, Type 2 diabetes mellitus with complicati on E11.8 ; Tobacco abuse Z72.0 and Bipolar disorder, unspecified F31.9 [facility] [address] [address] Jun, [facility] [address] [id number] Jun, Dental examination Z01.20 and Oral healt h maintenance status requiring routine preventive dental care K08.9 [place] [address] [address] May, Bilateral impacted cerumen H61.23 [facility] [address] [address] Apr, Bipolar disorder, unspecified F31.9 ; In termittent explosive disorder in adult F63.81 ; Type 2 diabetes mellitus with complication E11.8 ; Tobacco abuse Z72.0 and Colon cancer screening Z12.11 [facility] [address] [address] Apr, Onychomycosis B35.1 and Other diabetic n eurological complication associated with type 2 diabetes mellitus E11.49 [facility] [address] [id number] [place] [address] Apr, Intermittent explosive disorder in adult F63.81 ; Bipolar disorder, unspecified F31.9 and Mild intellectual disability F70 [facility] [id number] [place] [address] Mar, Diabetes E11.9 [facility] [address] [facility] [id number] [place] [address] Jan, Encounter for immunization Z 23 [place] [id number] [place] [address] Jan, Tinea pedis of both feet B35.3 ; Other d iabetic neurological complication associated with type 2 diabetes mellitus E11.49 and Onychomycosis B35.1 [place] [id number] [place] [address] Nov, Type 2 diabetes mellitus with complicati on E11.8 [place] [id number] [place] [address] Nov, [place] [id number] [place] [address] Oct, Intermittent explosive disorder in adult F63.81 ; Bipolar disorder, unspecified F31.9 and Mild intellectual disability F70 [place] [id number] [place] [address] Oct, [facility] [address] [id number] [place] [id number] Oct, Dental examination Z01.20 [place] [id number] [place] [address] Oct, Onychomycosis B35.1 and Other diabetic n eurological complication associated with type 2 diabetes mellitus E11.49 [place] [id number] [place] [address] Sep, Type 2 diabetes mellitus with complicati on E11.8 and Colon cancer screening Z12.11 [place] [address] [address] Sep, Type 2 diabetes mellitus with complicati on E11.8 ; Colon cancer screening Z12.11 and Neuropathy G62.9 [place] [address] [address] August, Diabetes E11.9 [facility] [address] [id number] Jul, Dental examination Z01.20 [place] [address] [address] May, Mild intellectual disability F70 [place] [address] [address] May, Mild intellectual disability F70 ; High risk medication use Z79.899 ; Intermittent explosive disorder in adult F63.81 and Bipolar disorder, unspecified F31.9 [place] [address] [address] May, [place] [address] [address] May, [place] [address] [address] Apr, Type 2 diabetes mellitus with complicati on E11.8 ; Mild intellectual disability F70 ; Gastroesophageal reflux disease without esophagitis K21.9 ; Reactive airway disease, mild intermittent, uncomplicated J45.20 and Tobacco abuse Z72.0 [place] [address] [address] Apr, High risk medication use Z79.899 ; Mild intellectual disability F70 ; Intermittent explosive disorder in adult F63.81 and Bipolar disorder, unspecified F31.9 [facility] [address] [id number] Mar, Dental examination Z01.20 [facility] [address] [id number] Mar, Encounter for dental exam and cleaning w /o abnormal findings Z01.20 [facility] [address] [address] 12 Jan, 2017 [facility] [address] [address] Jan, [facility] [address] [address] 10 Jan, 2017 Mild intellectual disability F70 ; Bipol ar disorder, unspecified F31.9 and Intermittent explosive disorder in adult F63.81 [facility] [address] [address] 02 Jan, 2017 Diabetes E11.9 [facility] [address] [id number] Dec, Encounter for dental examination and osei aning without abnormal findings Z01.20 [facility] [address] [address] 12 Dec, 2016 Bipolar disorder, unspecified F31.9 ; In termittent explosive disorder in adult F63.81 and Mild intellectual disability F70 [facility] [address] [address] Nov, Diabetes E11.9 [facility] [address] [address] Nov, [facility] [address] [address] Nov, Diabetes E11.9 and Colon cancer screenin g Z12.11 [facility] [address] [id number] [place] [id number] Sep, Dental examination Z01.20 [facility] [address] [id number] Sep, Encounter for dental examination and osei aning without abnormal findings Z01.20 [facility] [address] [address] Sep, Bipolar disorder, unspecified F31.9 [facility] [address] [address] Sep, Bipolar disorder, unspecified F31.9 [facility] [address] [address] Jul, [facility] [address] [address] Jul, Type 2 diabetes mellitus with complicati on E11.8 [id number] [id number] [id number] 15 Jun, 2016 Dental examination Z01.20 [facility] [address] [id number] 15 Jun, 2016 Encounter for dental examination and osei aning without abnormal findings Z01.20 [place] [address] [address] Apr, Sports physical Z02.[address] [address] 14 Mar, 2016 Bipolar disorder, in partial remission, most recent episode manic F31.73 and Intermittent explosive disorder in adult F63.[address] [address] Mar, [place] [address] [address] 06 Mar, 2016 Diabetes E11.9 [facility] [address] [id number] Feb, Encounter for dental examination and osei aning without abnormal findings Z01.20 [facility] [address] [address] 22 Dec, 2015 Nocturnal hypoxemia G47.34 and Encounter for immunization Z23 [facility] [address] [address] 15 Dec, 2015 [place] [address] [address] Dec, [facility] [address] [address] Dec, Bipolar disorder, unspecified F31.9 [facility] [address] [facility] [id number] [place] [id number] 13 Oct, 2015 Encounter for dental examination and osei aning without abnormal findings Z01.20 [facility] [id number] [place] [id number] 13 Oct, 2015 Dental examination Z01.20 [place] [address] [address] 07 Oct, 2015 Diabetes E11.9 [place] [address] [address] Oct, Diabetes E11.9 ; Reactive airway disease , mild intermittent, uncomplicated J45.20 and Tobacco abuse Z72.[address] [address] Sep, Bipolar disorder, unspecified F31.9 and Depression F32.[address] [address] Sep, [address] [address] August, Tinea pedis of both feet B35.3 and DM w/ o complication type II, uncontrolled E11.65 [place] [address] [address] Jul, [address] [address] Jul, [place] [address] [address] Jul, Obstructive sleep apnea G47.[address] [address] Jun, Diabetes E11.9 [facility] [address] [address] Jun, [address] [address] Jun, [place] [address] [address] Jun, Bipolar disorder, unspecified F31.9 and Mental retardation F79 [place] [address] [address] Apr, [place] [address] [address] Feb, Diabetes E11.9 ; Encounter for immunizat ion Z23 ; Cough R05 and Nicotine abuse Z72.[address] [address] Jan, Bipolar disorder, unspecified F31.9 and Diabetes mellitus without mention of complication, type II or unspecified type, uncontrolled 250.02 [place] [address] [address] Jan, [place] [address] [address] Dec, Reactive airway disease 493.90 and Enure sis 788.30 [place] [address] [address] Dec, [place] [address] [address] Nov, [place] [address] [address] Nov, [address] [address] Nov, Annual physical exam V70.0 ; Urinary inc ontinence 788.30 ; Diabetes 250.00 and Hypertension 401.[address] [address] Oct, Diabetes mellitus without mention of com plication, type II or unspecified type, uncontrolled 250.02 [place] [address] [address] Oct, Diabetes mellitus without mention of com plication, type II or unspecified type, uncontrolled 250.02 [facility] [address] [address] Oct, Diabetes mellitus without mention of com plication, type II or unspecified type, uncontrolled 250.02 [facility] [id number] [place] [address] 08 Oct, 2014 [facility] [address] [address] Oct, [facility] [address] [address] Oct, Bipolar disorder, unspecified 296.80 [facility] [address] [id number] Sep, Dental examination V72.2 [facility] [address] [address] August, [facility] [address] [id number] August, Dental examination V72.2 [facility] [address] [address] August, [facility] [address] [address] Jul, [facility] [address] [address] Jul, [facility] [address] [address] Jun, [facility] [address] [address] Jun, [facility] [address] [address] Jun, [facility] [address] [address] Jun, [facility] [address] [address] May, [facility] [address] [id number] [place] [address] 23 May, 2014 [facility] [address] [id number] [place] [address] May, 2014 [facility] [address] [id number] [place] [address] 16 May, 2014 [facility] [address] [id number] [place] [address] 16 May, 2014 [facility] [address] [id number] [place] [address] 16 May, 2014 [facility] [address] [id number] [place] [address] May, 2014 [facility] [address] [id number] [place] [address] 16 May, 2014 [facility] [address] [id number] [place] [address] May, 2014 [facility] [address] [id number] [place] [address] May, 2014 [facility] [address] [id number] [place] [address] May, 2014 [facility] [address] [id number] [place] [address] May, 2014 [facility] [address] [id number] [place] [address] May, 2014 [facility] [address] [id number] [place] [address] May, 2014 [facility] [address] [id number] [place] [address] May, 2014 [facility] [address] [id number] [place] [address] Apr, [facility] [address] [id number] [place] [address] Apr, [facility] [address] [id number] [place] [address] Apr, [facility] [address] [facility] [id number] [place] [address] Apr, [facility] [address] [id number] [place] [address] Apr, [facility] [address] [id number] [place] [address] Apr, [facility] [address] [id number] [place] [address] Apr, [facility] [address] [id number] [place] [address] Apr, [facility] [address] [id number] [place] [address] Apr, [facility] [address] [id number] [place] [address] Apr, [facility] [address] [id number] [place] [address] Apr, [facility] [address] [id number] [place] [address] Apr, [facility] [address] [id number] [place] [address] Mar, [facility] [address] [id number] [place] [address] Mar, [facility] [address] [id number] [place] [address] Mar, [facility] [address] [id number] [place] [address] Mar, [facility] [address] [id number] [place] [address] Mar, [facility] [address] [id number] [place] [address] Mar, [facility] [address] [id number] [place] [address] Feb, [facility] [address] [facility] [id number] [place] [address] Feb, [facility] [address] [facility] [id number] [place] [address] Feb, [facility] [address] [facility] [id number] [place] [address] Feb, [facility] [address] [id number] [place] [address] 14 Jan, 2014 [facility] [address] [facility] [id number] [place] [address] 14 Jan, 2014 [facility] [address] [id number] [place] [address] 14 Jan, 2014 [facility] [address] [id number] [place] [address] 14 Jan, 2014 [facility] [address] [id number] [place] [address] 22 Dec, 2013 [facility] [address] [id number] [place] [address] 22 Dec, 2013 [facility] [address] [id number] [place] [address] 15 Dec, 2013 [facility] [address] [id number] [place] [address] 15 Dec, 2013 [facility] [address] [id number] [place] [address] Nov, [facility] [address] [facility] [id number] [place] [address] Nov, [facility] [address] [facility] [id number] [place] [address] Nov, [facility] [address] [id number] [place] [address] Nov, [facility] [address] [id number] [place] [address] Nov, [facility] [address] [id number] [place] [address] Nov, [facility] [address] [facility] [id number] [place] [address] Nov, [facility] [address] [facility] [id number] [facility] [place] [address] Oct, [facility] [address] [id number] [place] [address] Oct, [facility] [address] [facility] [id number] [place] [address] Oct, [facility] [address] [facility] [id number] [facility] [place] [address] Oct, [facility] [address] [facility] [id number] [place] [address] Oct, [facility] [address] [id number] [place] [address] Oct, [facility] [address] [id number] [place] [address] Oct, [facility] [address] [facility] [id number] [place] [address] Sep, [facility] [address] [id number] [place] [address] Sep, [facility] [address] [id number] [place] [address] Sep, [facility] [address] [id number] [place] [address] Sep, [facility] [address] [facility] [id number] [place] [address] Sep, [facility] [address] [id number] [place] [address] Jul, [facility] [address] [facility] [id number] [place] [address] Jul, [facility] [address] [id number] [place] [address] Jul, [facility] [address] [id number] [place] [address] Jul, [facility] [address] [facility] [id number] [place] [address] Jul, [facility] [address] [id number] [place] [address] Jul, [facility] [address] [id number] [place] [address] Jul, [facility] [address] [id number] [place] [address] Jul, [facility] [address] [facility] [id number] [place] [address] Jul, [facility] [address] [id number] [place] [address] Jul, [facility] [address] [id number] [place] [address] Jul, [facility] [address] [id number] [place] [address] Jul, [facility] [address] [id number] [place] [address] Jun, [facility] [address] [id number] [place] [address] Jun, [facility] [address] [id number] [place] [address] Jun, [facility] [address] [id number] [place] [address] Jun, [facility] [address] [id number] [place] [address] Jun, [facility] [address] [id number] [place] [address] Jun, [facility] [address] [id number] [place] [address] Jun, [facility] [address] [id number] [place] [address] Jun, [facility] [address] [facility] [id number] [facility] [place] [address] May, [facility] [address] [facility] [id number] [facility] [place] [address] May, [facility] [address] [facility] [id number] [facility] [place] [address] May, [facility] [address] [id number] [facility] [place] [address] May, [facility] [address] [facility] [id number] [facility] [place] [address] May, [facility] [address] [id number] [place] [address] May, [facility] [address] [id number] [place] [address] May, [facility] [address] [id number] [place] [address] May, [facility] [address] [id number] [place] [address] Apr, [facility] [address] [id number] [place] [address] Apr, [facility] [address] [id number] [place] [address] Apr, [facility] [address] [id number] [place] [address] Apr, [facility] [address] [id number] [place] [address] Mar, [facility] [address] [facility] [id number] [place] [address] Mar, [facility] [address] [id number] [place] [address] Mar, [facility] [address] [id number] [place] [address] Feb, [facility] [address] [id number] [place] [address] Feb, [facility] [address] [id number] [place] [address] Feb, [facility] [address] [id number] [place] [address] Feb, [facility] [address] [id number] [place] [address] Feb, [facility] [address] [id number] [place] [address] Feb, [facility] [address] [id number] [place] [address] Jan, [facility] [address] [id number] [place] [address] Jan, [facility] [address] [id number] [place] [address] Jan, [facility] [address] [id number] [place] [address] Jan, [facility] [address] [id number] [place] [address] Jan, [facility] [address] [id number] [place] [address] Jan, [facility] [address] [id number] [place] [address] Jan, [facility] [address] [id number] [place] [address] 25 Dec, 2012 [facility] [address] [id number] [place] [address] 16 Dec, 2012 [facility] [address] [id number] [place] [address] 10 Dec, 2012 [facility] [address] [id number] [place] [address] 05 Dec, 2012 [facility] [address] [id number] [place] [address] Nov, [facility] [address] [id number] [place] [address] Nov, [facility] [address] [id number] [place] [address] Nov, [facility] [address] [id number] [place] [address] Nov, [facility] [address] [id number] [place] [address] Nov, [facility] [address] [id number] [place] [address] Nov, [facility] [address] [id number] [place] [address] Nov, [facility] [address] [id number] [place] [address] Oct, [facility] [address] [id number] [place] [address] Oct, [facility] [address] [id number] [place] [address] Oct, [facility] [address] [id number] [place] [address] Oct, [facility] [address] [id number] [place] [address] Oct, [facility] [address] [id number] [place] [address] Oct, [facility] [address] [id number] [place] [address] Oct, [facility] [address] [id number] [place] [address] Oct, [facility] [address] [id number] [place] [address] Sep, Suleiman PEREZ [address] [facility] [id number] JORGE LANGE [id number] August, [facility] [address] [id number] [place] [address] 14 Aug, 2012 [facility] [address] [facility] [id number] [facility] [place] [address] Jul, [facility] [address] [facility] [id number] [place] [address] Jul, [facility] [address] [id number] [place] [address] Jul, [facility] [address] [id number] [place] [address] Jul, [facility] [address] [facility] [id number] [place] [address] Jul, [facility] [address] [id number] [place] [address] 17 Jul, 2012 [facility] [address] [id number] [place] [address] 16 Jul, 2012 [facility] [address] [id number] [place] [address] Jun, [facility] [address] [id number] [place] [address] Jun, [facility] [address] [id number] [place] [address] Jun, [facility] [address] [id number] [place] [address] Jun, [facility] [address] [id number] [place] [address] Jun, [facility] [address] [facility] [id number] [place] [address] May, [facility] [address] [id number] [place] [address] 18 May, 2012 [facility] [address] [id number] [place] [address] 04 May, 2012 [facility] [address] [id number] [place] [address] 15 Apr, 2012 [facility] [address] [id number] [place] [address] 14 Apr, 2012 [facility] [address] [id number] [place] [address] Apr, [facility] [address] [id number] [place] [address] Mar, [facility] [address] [id number] [place] [address] Mar, [facility] [address] [id number] [place] [address] Mar, [facility] [address] [id number] [place] [address] Mar, [facility] [address] [id number] [place] [address] Mar, [facility] [address] [id number] [place] [address] Mar, [facility] [address] [id number] [place] [address] Feb, [facility] [address] [id number] [place] [address] Feb, [facility] [address] [id number] [place] [address] Jan, [facility] [address] [id number] [place] [address] Jan, [facility] [address] [id number] [place] [address] Dec, [facility] [address] [id number] [place] [address] Nov, [facility] [id number] [place] [address] Nov, [facility] [address] [id number] [place] [address] Nov, [facility] [address] [id number] [place] [address] Nov, [facility] [address] [facility] [id number] [place] [address] Oct, [facility] [address] [id number] [facility] [place] [address] Oct, [facility] [address] [id number] [place] [address] Oct, [facility] [address] [id number] [place] [address] Sep, [facility] [address] [facility] [id number] [place] [address] Sep, [facility] [address] [id number] [place] [address] Sep, [facility] [address] [id number] [place] [address] August, [facility] [address] [id number] [place] [address] August, [facility] [address] [id number] [place] [address] Jul, [facility] [address] [id number] [place] [address] Jul, [facility] [address] [id number] [place] [address] Jul, [facility] [address] [id number] [place] [address] Jul, [facility] [address] [id number] [place] [address] Jun, [facility] [address] [id number] [place] [address] May, [facility] [address] [id number] [place] [address] Apr, [facility] [address] [id number] [place] [address] Apr, [facility] [address] [id number] [place] [address] Apr, [facility] [address] [id number] [place] [address] Apr, [facility] [address] [id number] [place] [address] Apr, [facility] [address] [id number] [place] [address] Apr, [facility] [address] [id number] [place] [address] Mar, [facility] [address] [id number] [place] [address] Mar, [facility] [address] [id number] [place] [address] Feb, [facility] [id number] [place] [address] Feb, [facility] [address] [id number] [place] [address] Feb, [facility] [address] [id number] [place] [address] Feb, [facility] [address] [id number] [place] [address] Jan, [facility] [address] [id number] [place] [address] Jan, [facility] [address] [id number] [place] [address] Jan, [facility] [address] [id number] [place] [address] Jan, [facility] [id number] [place] [address] Nov, [facility] [address] [id number] [place] [address] Mar, [facility] [address] [id number] [place] [address] Mar, [facility] [address] [id number] [place] [address] 30 Feb, 2010 [facility] [id number] [place] [address] Feb, [facility] [id number] [place] [address] Jan, [facility] [id number] [place] [address] Jan, [facility] [id number] [place] [address] Sep, [facility] [id number] [place] [address] May, [facility] [id number] [place] [address] Apr, [facility] [id number] [place] [address] Mar, [facility] [id number] [place] [address] Feb, [facility] [id number] [place] [address] Feb, [facility] [id number] [place] [address] Feb, [facility] [id number] [place] [address] Jan, [facility] [id number] [place] [address] Jan, [facility] [id number] [place] [address] Jan, [facility] [id number] [place] [address] Jan, [facility] [id number] [place] [address] August, IMMUNIZATIONS No Known Immunizations SOCIAL HISTORY [...] age 6 Hospitalization History surgery Hospitalization History [facility] for BH
--- OUTSIDE RECORDS SUMMARY | 2019-09-29 10:43 | XMS REPORT ---
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 Active 70407809 Problem Open-angle glaucoma of both eyes, unspecified glaucoma stage, unspecified open-angle glaucoma type H40.10X0 Acti ve 99710390 Problem Adjustment disorder, unspecified type F43.20 Active 28569199 Problem Obstructive sleep apnea G47.33 Active 67926996 Problem Hypertensive retinopathy of both eyes H35.033 Active 1904482 Problem Type 2 diabetes mellitus with complication E11.8 Active 16328997 Problem Essential hypertension I10 Active 44893403 Problem Diabetes E11.9 Active 08822341 Problem Bipolar disorder, in partial remission, most rec ent episode manic F31.73 Active 53024804 Problem Intermittent explosive disorder in adult F63.81 Active 71283575 Problem Other diabetic neurological complication associated with type 2 diabetes mellitus E11.49 Active 795892141 Problem Depression F32.9 Active 07722619 Problem Neuropathy G62.9 Active 883494549 Problem Intermittent explosive disorder F63.81 Active 98657782 Problem Bipolar disorder, unspecified F31.9 Active 38062878 Problem Mild intellectual disability F70 A ctive 86055286 Problem Reactive airway disease, mild intermittent, uncomplicated J45.20 Active 822869584 Problem Gastroesophageal reflux disease without esophagitis K21.9 Active 953900391 ALLERGIES No Information ENCOUNTERS Encounter Location Date Diagnosis [facility] [address] [facility] [id number] [address] [place] [address] Apr, OUTREACH [facility] [address] [id number] [address] Jan, [facility] [address] [id number] [address] [place] [address] Jan, [facility] [address] [id number] [address] [place] [address] Dec, [facility] [address] [id number] [address] [place] [address] Dec, [facility] [address] [id number] [address] [place] [address] Dec, Dysuria R30.0 [facility] [address] [id number] [address] [place] [address] Dec, Intermittent explosive disor salvatore in adult F63.81 ; Bipolar disorder, unspecified F31.9 and Mild intellectual disability F70 [facility] [address] [id number] [address] [place] [address] Nov, [facility] [address] [id number] [address] [place] [address] Oct, [facility] [address] [facility] [id number] [place] [address] Oct, Oral health maintenance stat us requiring routine preventive dental care K08.9 [facility] [address] [facility] [id number] [address] [place] [address] August, Intermittent explosive disor salvatore in adult F63.81 ; Bipolar disorder, unspecified F31.9 and Mild intellectual disability F70 [facility] [address] [id number] [address] [place] [address] [phone] August, Dental caries K02.9 [facility] [address] [id number] [address] [place] [address] Jul, Onychomycosis B35.1 ; Other diabetic neurological complication associated with type 2 diabetes mellitus E11.49 and Tinea pedis of both feet B35.3 [facility] [address] [place] [id number] [address] [place] [address] [id number] 18 Jul, 2018 Caries K02.9 [facility] [address] [place] [id number] [address] [place] [address] 15 Jul, 2018 Type 2 diabetes mellitus wit h complication E11.8 ; Tobacco abuse Z72.0 and Bipolar disorder, unspecified F31.9 [facility] [address] [place] [id number] [address] [place] [address] Jun, [facility] [address] [place] [id number] [address] [place] [address] [id number] Jun, Dental examination Z01.20 an d Oral health maintenance status requiring routine preventive dental care K08.9 [place] [address] [place] [id number] [address] [place] [address] 11 May, 2018 Bilateral impacted cerumen H 61.23 [facility] [address] [address] Apr, Bipolar disorder, unspecifie d F31.9 ; Intermittent explosive disorder in adult F63.81 ; Type 2 diabetes mellitus with complication E11.8 ; Tobacco abuse Z72.0 and Colon cancer screening Z12.11 [place] [address] [place] [id number] [address] [place] [address] Apr, Onychomycosis B35.1 and Othe r diabetic neurological complication associated with type 2 diabetes mellitus E11.49 [facility] [address] [place] [id number] [address] [place] [address] Apr, Intermittent explosive disor salvatore in adult F63.81 ; Bipolar disorder, unspecified F31.9 and Mild intellectual disability F70 [facility] [address] [address] 03 Mar, 2018 Diabetes E11.9 [facility] [address] [id number] [address] [place] [address] Jan, Encounter for immunization Z 23 [place] [address] [place] [address] Jan, Tinea pedis of both feet B35 .3 ; Other diabetic neurological complication associated with type 2 diabetes mellitus E11.49 and Onychomycosis B35.1 [facility] [address] [facility] [id number] [address] [place] [address] Nov, Type 2 diabetes mellitus wit h complication E11.8 [facility] [address] [facility] [id number] [address] [place] [address] Nov, [facility] [address] [facility] [id number] [address] [place] [address] Oct, Intermittent explosive disor salvatore in adult F63.81 ; Bipolar disorder, unspecified F31.9 and Mild intellectual disability F70 [place] [address] [place] [id number] [address] [place] [address] Oct, [facility] [address] [place] [id number] [place] [address] [phone] Oct, Dental examination Z01.20 [facility] [address] [place] [id number] [address] [place] [address] Oct, Onychomycosis B35.1 and Othe r diabetic neurological complication associated with type 2 diabetes mellitus E11.49 [place] [address] [place] [id number] [address] [place] [address] Sep, Type 2 diabetes mellitus wit h complication E11.8 and Colon cancer screening Z12.11 [facility] [address] [place] [id number] [address] [place] [address] Sep, Type 2 diabetes mellitus wit h complication E11.8 ; Colon cancer screening Z12.11 and Neuropathy G62.9 [facility] [address] [facility] [id number] [address] [place] [address] August, Diabetes E11.9 [facility] [address] [id number] [address] [place] [address] [phone] Jul, Dental examination Z01.20 [facility] [address] [facility] [id number] [address] [place] [address] May, Mild intellectual disability F70 [facility] [address] [facility] [id number] [address] [place] [address] May, Mild intellectual disability F70 ; High risk medication use Z79.899 ; Intermittent explosive disorder in adult F63.81 and Bipolar disorder, unspecified F31.9 [facility] [address] [place] [id number] [address] [place] [address] May, [facility] [address] [facility] [id number] [address] [place] [address] May, [facility] [address] [place] [id number] [place] [address] Apr, Type 2 diabetes mellitus wit h complication E11.8 ; Mild intellectual disability F70 ; Gastroesophageal reflux disease without esophagitis K21.9 ; Reactive airway disease, mild intermittent, uncomplicated J45.20 and Tobacco abuse Z72.0 [facility] [id number] [place] [address] Apr, High risk medication use Z79 .899 ; Mild intellectual disability F70 ; Intermittent explosive disorder in adult F63.81 and Bipolar disorder, unspecified F31.9 [facility] [address] [place] [id number] [address] [place] [address] [phone] Mar, Encounter for dental exam an d cleaning w/o abnormal findings Z01.20 [facility] [address] [id number] [address] [place] [address] [phone] Mar, Dental examination Z01.20 [facility] [address] [facility] [id number] [address] [place] [address] Jan, [facility] [address] [facility] [id number] [address] [place] [address] Jan, [facility] [address] [place] [id number] [address] [place] [address] Jan, Mild intellectual disability F70 ; Bipolar disorder, unspecified F31.9 and Intermittent explosive disorder in adult F63.81 [facility] [address] [id number] [address] [place] [address] 02 Jan, 2017 Diabetes E11.9 [facility] [address] [id number] [address] [place] [address] [id number] 13 Dec, 2016 Encounter for dental examina tion and cleaning without abnormal findings Z01.20 [facility] [address] [id number] [address] [place] [address] 12 Dec, 2016 Bipolar disorder, unspecifie d F31.9 ; Intermittent explosive disorder in adult F63.81 and Mild intellectual disability F70 [facility] [address] [id number] [address] [place] [address] Nov, Diabetes E11.9 [facility] [address] [id number] [address] [place] [address] Nov, [facility] [address] [facility] [id number] [address] [place] [address] Nov, Diabetes E11.9 and Colon can cer screening Z12.[id number] [place] [address] [phone] Sep, Dental examination Z01.20 [facility] [address] [id number] [address] [place] [address] [phone] Sep, Encounter for dental examina tion and cleaning without abnormal findings Z01.20 [facility] [address] [id number] [address] [place] [address] 13 Sep, 2016 Bipolar disorder, unspecifie d F31.9 [facility] [address] [id number] [address] [place] [address] Sep, Bipolar disorder, unspecifie d F31.9 [facility] [address] [id number] [address] [place] [address] Jul, [facility] [address] [id number] [address] [place] [address] Jul, Type 2 diabetes mellitus wit h complication E11.8 [facility] [address] [id number] [address] [place] [address] [id number] 15 Jun, 2016 Encounter for dental examina tion and cleaning without abnormal findings Z01.20 [facility] [id number] [id number] 15 Jun, 2016 Dental examination Z01.20 [facility] [address] [id number] [address] [place] [address] 18 Apr, 2016 Sports physical Z02.5 [facility] [address] [id number] [address] [place] [address] 14 Mar, 2016 Bipolar disorder, in partial remission, most recent episode manic F31.73 and Intermittent explosive disorder in adult F63.81 [facility] [address] [id number] [address] [place] [phone] 08 Mar, 2016 [facility] [address] [id number] [address] [place] [phone] 06 Mar, 2016 Diabetes E11.9 [facility] [address] [id number] [address] [place] [address] [phone] Feb, Encounter for dental examina tion and cleaning without abnormal findings Z01.20 [facility] [address] [id number] [address] [place] [address] 22 Dec, 2015 Nocturnal hypoxemia G47.34 a nd Encounter for immunization Z23 [facility] [address] [id number] [address] [place] [phone] 15 Dec, 2015 [facility] [address] [id number] [address] [place] [address] Dec, [facility] [address] [id number] [address] [place] [address] Dec, Bipolar disorder, unspecifie d F31.9 [facility] [address] [id number] [address] [place] [address] [phone] Oct, Encounter for dental examina tion and cleaning without abnormal findings Z01.20 [facility] [place] [address] [facility] [id number] [place] [address] [id number] 13 Oct, 2016 Dental examination Z01.20 [facility] [address] [facility] [id number] [address] [place] [phone] 07 Oct, 2015 Diabetes E11.9 [facility] [address] [facility] [id number] [address] [place] [address] 05 Oct, 2015 Diabetes E11.9 ; Reactive ai rway disease, mild intermittent, uncomplicated J45.20 and Tobacco abuse Z72.0 [facility] [address] [facility] [id number] [address] [place] [address] Sep, Bipolar disorder, unspecifie d F31.9 and Depression F32.9 [place] [id number] [facility] [id number] [address] [place] [address] Sep, [facility] [address] [facility] [id number] [address] [place] [address] August, Tinea pedis of both feet B35 .3 and DM w/o complication type II, uncontrolled E11.65 [facility] [address] [facility] [id number] [address] [place] [phone] Jul, [facility] [address] [facility] [id number] [address] [place] [address] Jul, [facility] [address] [facility] [id number] [address] [place] [address] Jul, Obstructive sleep apnea G47. 33 [facility] [address] [facility] [id number] [address] [place] [address] Jun, Diabetes E11.9 [facility] [address] [facility] [id number] [address] [place] [address] Jun, [facility] [address] [facility] [id number] [address] [place] [address] Jun, [facility] [address] [facility] [id number] [address] [place] [address] Jun, Bipolar disorder, unspecifie d F31.9 and Mental retardation F79 [place] [address] [address] Apr, [place] [address] [address] Feb, Diabetes E11.9 ; Encounter f or immunization Z23 ; Cough R05 and Nicotine abuse Z72.0 [place] [address] [id number] Jan, Bipolar disorder, unspecifie d F31.9 and Diabetes mellitus without mention of complication, type II or unspecified type, uncontrolled 250.02 [place] [address] [address] Jan, [place] [address] [address] Dec, Reactive airway disease 493. 90 and Enuresis 788.30 [place] [address] [address] Dec, [place] [address] [address] Nov, [place] [address] [address] Nov, [place] [address] [address] Nov, Annual physical exam V70.0 ; Urinary incontinence 788.30 ; Diabetes 250.00 and Hypertension 401.9 [place] [address] [id number] Oct, Diabetes mellitus without me ntion of complication, type II or unspecified type, uncontrolled 250.02 [place] [address] [address] Oct, Diabetes mellitus without me ntion of complication, type II or unspecified type, uncontrolled 250.02 [facility] [address] [id number] [address] [place] [address] Oct, Diabetes mellitus without me ntion of complication, type II or unspecified type, uncontrolled 250.02 [facility] [address] [id number] [address] [place] [address] 08 Oct, 2014 [facility] [address] [id number] [address] [place] [address] Oct, [facility] [address] [id number] [address] [place] [address] Oct, Bipolar disorder, unspecifie d 296.80 [facility] [address] [id number] [address] [place] [address] [id number] Sep, Dental examination V72.2 [facility] [address] [id number] [address] [place] [address] August, [facility] [address] [id number] [address] [place] [address] [phone] August, Dental examination V72.2 [facility] [address] [id number] [address] [place] [address] August, [facility] [address] [id number] [address] [place] [address] Jul, [facility] [address] [id number] [address] [place] [address] Jul, [facility] [address] [id number] [address] [place] [address] Jun, [facility] [address] [id number] [address] [place] [address] Jun, [facility] [address] [id number] [address] [place] [address] Jun, [facility] [address] [id number] [address] [place] [address] Jun, [facility] [address] [id number] [address] [place] [address], [place] [address] 23 May, 2014 [facility] [address] [id number] [address] [place] [address], [place] [address] 23 May, 2014 [facility] [address] [id number] [address] [place] [address], [place] [address] 16 May, 2014 [facility] [address] [id number] [address] [place] [address], [place] [address] 16 May, 2014 [facility] [address] [id number] [address] [place] [address], [place] [address] 16 May, 2014 [facility] [address] [id number] [address] [place] [address], [place] [address] 16 May, 2014 [facility] [address] [id number] [address] [place] [address], [place] [address] 16 May, 2014 [facility] [address] [id number] [address] [place] [address], [place] [address] 16 May, 2014 [facility] [address] [id number] [address] [place] [address], [place] [address] 16 May, 2014 [facility] [address] [id number] [address] [place] [address], [place] [address] 16 May, 2014 [facility] [address] [id number] [address] [place] [address], [place] [address] 16 May, 2014 [facility] [address] [id number] [address] [place] [address], [place] [address] 16 May, 2014 [facility] [address] [id number] [address] [place] [address], [place] [address] 16 May, 2014 [facility] [address] [id number] [address] [place] [address], [place] [address] 16 May, 2014 [facility] [address] [id number] [address] [place] [address], [place] [address] 16 May, 2014 [facility] [address] [id number] [address] [place] [address], [place] [address] Apr, [facility] [address] [id number] [address] [place] [address], [place] [address] Apr, [facility] [address] [id number] [address] [place] [address], [place] [address] Apr, [facility] [address] [id number] [address] [place] [address], [place] [address] Apr, [facility] [address] [id number] [address] [place] [address], [place] [address] Apr, [facility] [address] [id number] [address] [place] [address], [place] [address] Apr, [facility] [address] [id number] [address] [place] [address], [place] [address] Apr, [facility] [address] [id number] [address] [place] [address], [place] [address] Apr, [facility] [address] [id number] [address] [place] [address], [place] [address] Apr, [facility] [address] [id number] [address] [place] [address], [place] [address] Apr, [facility] [address] [id number] [address] [place] [address], [place] [address] Apr, [facility] [address] [id number] [address] [place] [address], [place] [address] Apr, [facility] [address] [id number] [address] [place] [address], [place] [address] Mar, [facility] [address] [id number] [address] [place] [address], [place] [address] Mar, [facility] [address] [id number] [address] [place] [address], [place] [address] Mar, [facility] [address] [id number] [address] [place] [address], [place] [address] Mar, [facility] [address] [id number] [address] [place] [address], [place] [address] 10 Mar, 2014 [facility] [address] [id number] [address] [place] [address], [place] [address] Mar, [facility] [address] [id number] [address] [place] [address], [place] [address] Feb, [facility] [address] [id number] [address] [place] [address], [place] [address] Feb, [facility] [address] [id number] [address] [place] [address], [place] [address] Feb, [facility] [address] [id number] [address] [place] [address], [place] [address] Feb, [facility] [address] [id number] [address] [place] [address], [place] [address] 14 Jan, 2014 [facility] [address] [id number] [address] [place] [address], [place] [address] 14 Jan, 2014 [facility] [address] [id number] [address] [place] [address], [place] [address] 14 Jan, 2014 [facility] [address] [id number] [address] [place] [address], [place] [address] 14 Jan, 2014 [facility] [address] [id number] [address] [place] [address], [place] [address] 22 Dec, 2013 [facility] [address] [id number] [address] [place] [address], [place] [address] 22 Dec, 2013 [facility] [address] [id number] [address] [place] [address], [place] [address] 15 Dec, 2013 [facility] [address] [id number] [address] [place] [address], [place] [address] 15 Dec, 2013 [facility] [address] [id number] [address] [place] [address], [place] [address] Nov, [facility] [address] [id number] [address] [place] [address] [place] [address] Nov, [facility] [address] [id number] [facility] [place] [address] Nov, [facility] [address] [id number] [address] [place] [address], [place] [address] Nov, [facility] [address] [id number] [address] [place] [address], [place] [address] Nov, [facility] [address] [id number] [address] [place] [address], [place] [address] Nov, [facility] [address] [id number] [address] [place] [address], [place] [address] Nov, [facility] [address] [id number] [address] [place] [address], [place] [address] Oct, [facility] [address] [id number] [address] [place] [address], [place] [address] Oct, [facility] [address] [id number] [address] [place] [address], [place] [address] Oct, [facility] [address] [id number] [address] [place] [address], [place] [address] Oct, [facility] [address] [id number] [address] [place] [address], [place] [address] Oct, [facility] [address] [id number] [address] [place] [address], [place] [address] Oct, [facility] [address] [id number] [address] [place] [address], [place] [address] Oct, [facility] [address] [id number] [address] [place] [address], [place] [address] Sep, [facility] [address] [id number] [address] [place] [address], [place] [address] Sep, [facility] [address] [id number] [address] [place] [address], [place] [address] Sep, [facility] [address] [id number] [facility] [place] [address] Sep, [facility] [address] [id number] [address] [place] [address], [place] [address] Sep, [facility] [address] [id number] [address] [place] [address], [place] [address] Jul, [facility] [address] [id number] [address] [place] [address], [place] [address] Jul, [facility] [address] [id number] [address] [place] [address], [place] [address] Jul, [facility] [address] [id number] [address] [place] [address], [place] [address] Jul, [facility] [address] [id number] [address] [place] [address], [place] [address] Jul, [facility] [address] [id number] [address] [place] [address], [place] [address] Jul, [facility] [address] [id number] [address] [place] [address], [place] [address] Jul, [facility] [address] [id number] [address] [place] [address], [place] [address] Jul, [facility] [address] [id number] [address] [place] [address], [place] [address] Jul, [facility] [address] [id number] [address] [place] [address], [place] [address] Jul, [facility] [address] [id number] [address] [place] [address], [place] [address] Jul, [facility] [address] [id number] [address] [place] [address], [place] [address] Jul, [facility] [address] [id number] [address] [place] [address], [place] [address] Jun, [facility] [address] [id number] [address] [place] [address], [place] [address] Jun, [facility] [address] [id number] [address] [place] [address], [place] [address] Jun, [facility] [address] [id number] [address] [place] [address], [place] [address] Jun, [facility] [address] [id number] [address] [place] [address], [place] [address] Jun, [facility] [address] [id number] [address] [place] [address], [place] [address] Jun, [facility] [address] [id number] [address] [place] [address], [place] [address] Jun, [facility] [address] [id number] [address] [place] [address], [place] [address] Jun, [facility] [address] [id number] [address] [place] [address], [place] [address] May, [facility] [address] [id number] [address] [place] [address], [place] [address] May, [facility] [address] [id number] [address] [place] [address], [place] [address] May, [facility] [address] [id number] [address] [place] [address], [place] [address] May, [facility] [address] [id number] [address] [place] [address], [place] [address] May, [facility] [address] [id number] [address] [place] [address], [place] [address] May, [facility] [address] [id number] [address] [place] [address], [place] [address] May, [facility] [address] [id number] [address] [place] [address], [place] [address] May, [facility] [address] [id number] [address] [place] [address], [place] [address] Apr, [facility] [address] [id number] [address] [place] [address], [place] [address] Apr, [facility] [address] [id number] [address] [place] [address], [place] [address] Apr, [facility] [address] [id number] [address] [place] [address], [place] [address] Apr, [facility] [address] [id number] [address] [place] [address], [place] [address] Mar, [facility] [address] [id number] [address] [place] [address], [place] [address] Mar, [facility] [address] [id number] [address] [place] [address], [place] [address] Mar, [facility] [address] [id number] [address] [place] [address], [place] [address] Feb, [facility] [address] [id number] [address] [place] [address], [place] [address] Feb, [facility] [address] [id number] [address] [place] [address], [place] [address] Feb, [facility] [address] [id number] [address] [place] [address], [place] [address] Feb, [facility] [address] [id number] [address] [place] [address], [place] [address] Feb, [facility] [address] [id number] [address] [place] [address], [place] [address] Feb, [facility] [address] [id number] [address] [place] [address], [place] [address] Jan, [facility] [address] [id number] [address] [place] [address], [place] [address] Jan, [facility] [address] [id number] [address] [place] [address], [place] [address] Jan, [facility] [address] [id number] [address] [place] [address], [place] [address] Jan, [facility] [address] [id number] [address] [place] [address], [place] [address] Jan, [facility] [address] [id number] [address] [place] [address], [place] [address] Jan, [facility] [address] [id number] [address] [place] [address], [place] [address] Jan, [facility] [address] [id number] [address] [place] [address], [place] [address] Dec, [facility] [address] [id number] [address] [place] [address], [place] [address] 16 Dec, 2012 [facility] [address] [id number] [address] [place] [address], [place] [address] Dec, [facility] [address] [id number] [address] [place] [address], [place] [address] Dec, [facility] [address] [id number] [address] [place] [address], [place] [address] Nov, [facility] [address] [id number] [address] [place] [address], [place] [address] Nov, [facility] [address] [id number] [address] [place] [address], [place] [address] Nov, [facility] [address] [id number] [address] [place] [address], [place] [address] Nov, [facility] [address] [id number] [address] [place] [address], [place] [address] Nov, [facility] [address] [id number] [address] [place] [address], [place] [address] Nov, [facility] [address] [id number] [address] [place] [address], [place] [address] Nov, [facility] [address] [id number] [address] [place] [address], [place] [address] Oct, [facility] [address] [id number] [address] [place] [address], [place] [address] Oct, [facility] [address] [id number] [address] [place] [address], [place] [address] Oct, [facility] [address] [id number] [address] [place] [address], [place] [address] Oct, [facility] [address] [id number] [address] [place] [address], [place] [address] Oct, [facility] [address] [id number] [address] [place] [address], [place] [address] Oct, [facility] [address] [id number] [address] [place] [address], [place] [address] Oct, [facility] [address] [id number] [address] [place] [address], [place] [address] Oct, [facility] [address] [id number] [address] [place] [address], [place] [address] Sep, [facility] [id number] [facility] [id number] [place] [id number] August, [facility] [address] [id number] [address] [place] [address], [place] [address] August, [facility] [address] [id number] [address] [place] [address], [place] [address] Jul, [facility] [address] [id number] [address] [place] [address], [place] [address] 29 Jul, 2012 [facility] [address] [id number] [address] [place] [address], [place] [address] Jul, [facility] [address] [id number] [address] [place] [address], [place] [address] 22 Jul, 2012 [facility] [address] [id number] [address] [place] [address], [place] [address] 18 Jul, 2012 [facility] [address] [id number] [address] [place] [address], [place] [address] 17 Jul, 2012 [facility] [address] [id number] [address] [place] [address], [place] [address] 16 Jul, 2012 [facility] [address] [id number] [address] [place] [address], [place] [address] 21 Jun, 2012 [facility] [address] [id number] [address] [place] [address], [place] [address] 18 Jun, 2012 [facility] [address] [id number] [address] [place] [address], [place] [address] 11 Jun, 2012 [facility] [address] [id number] [address] [place] [address], [place] [address] 04 Jun, 2012 [facility] [address] [id number] [address] [place] [address], [place] [address] 04 Jun, 2012 [facility] [address] [id number] [address] [place] [address], [place] [address] 19 May, 2012 [facility] [address] [id number] [address] [place] [address], [place] [address] 18 May, 2012 [facility] [address] [id number] [address] [place] [address], [place] [address] 04 May, 2012 [facility] [address] [id number] [address] [place] [address], [place] [address] 15 Apr, 2012 [facility] [address] [id number] [address] [place] [address], [place] [address] 14 Apr, 2012 [facility] [address] [id number] [address] [place] [address], [place] [address] 07 Apr, 2012 [facility] [address] [id number] [address] [place] [address], [place] [address] Mar, [facility] [address] [id number] [address] [place] [address], [place] [address] 31 Mar, 2012 [facility] [address] [id number] [address] [place] [address], [place] [address] 13 Mar, 2012 [facility] [address] [id number] [address] [place] [address], [place] [address] 13 Mar, 2012 [facility] [address] [id number] [address] [place] [address], [place] [address] Mar, [facility] [address] [id number] [address] [place] [address], [place] [address] Mar, [facility] [address] [id number] [address] [place] [address], [place] [address] Feb, [facility] [address] [id number] [address] [place] [address], [place] [address] Feb, [facility] [address] [id number] [address] [place] [address], [place] [address] Jan, [facility] [address] [id number] [address] [place] [address], [place] [address] Jan, [facility] [address] [id number] [address] [place] [address], [place] [address] Dec, [facility] [address] [id number] [address] [place] [address], [place] [address] Nov, [facility] [address] [id number] [address] [place] [address], [place] [address] Nov, [facility] [address] [id number] [address] [place] [address], [place] [address] Nov, [facility] [address] [id number] [address] [place] [address], [place] [address] Nov, [facility] [address] [id number] [address] [place] [address], [place] [address] Oct, [facility] [address] [id number] [address] [place] [address], [place] [address] Oct, [facility] [address] [id number] [address] [place] [address], [place] [address] Oct, [facility] [address] [id number] [address] [place] [address], [place] [address] Sep, [facility] [address] [id number] [address] [place] [address], [place] [address] 14 Sep, 2011 [facility] [address] [id number] [address] [place] [address], [place] [address] Sep, [facility] [address] [id number] [address] [place] [address], [place] [address] August, [facility] [address] [id number] [address] [place] [address], [place] [address] August, [facility] [address] [id number] [address] [place] [address], [place] [address] Jul, [facility] [address] [id number] [address] [place] [address], [place] [address] Jul, [facility] [address] [id number] [address] [place] [address], [place] [address] Jul, [facility] [address] [id number] [address] [place] [address], [place] [address] Jul, [facility] [address] [id number] [address] [place] [address], [place] [address] Jun, [facility] [address] [id number] [address] [place] [address], [place] [address] May, [facility] [address] [id number] [address] [place] [address], [place] [address] Apr, [facility] [address] [id number] [address] [place] [address], [place] [address] Apr, [facility] [address] [id number] [address] [place] [address], [place] [address] Apr, [facility] [address] [id number] [address] [place] [address], [place] [address] Apr, [facility] [address] [id number] [address] [place] [address], [place] [address] Apr, [facility] [address] [id number] [address] [place] [address], [place] [address] Apr, [facility] [address] [id number] [address] [place] [address], [place] [address] Mar, [facility] [address] [id number] [address] [place] [address], [place] [address] Mar, [facility] [address] [id number] [address] [place] [address], [place] [address] Feb, [facility] [address] [id number] [address] [place] [address], [place] [address] Feb, [facility] [address] [id number] [address] [place] [address], [place] [address] Feb, [facility] [address] [id number] [address] [place] [address], [place] [address] Feb, [facility] [address] [id number] [address] [place] [address], [place] [address] Jan, [facility] [address] [id number] [address] [place] [address], [place] [address] Jan, [facility] [address] [id number] [address] [place] [address], [place] [address] Jan, [facility] [address] [id number] [address] [place] [address], [place] [address] Jan, [facility] [address] [id number] [address] [place] [address], [place] [address] Nov, [facility] [address] [id number] [address] [place] [address], [place] [address] Mar, [facility] [address] [id number] [address] [place] [address], [place] [address] Mar, [facility] [address] [id number] [address] [place] [address], [place] [address] 30 Feb, 2010 [facility] [address] [id number] [address] [place] [address], [place] [address] 15 Feb, 2010 [facility] [address] [id number] [address] [place] [id number] Jan, [facility] [address] [id number] [address] [place] [phone] Jan, [facility] [address] [id number] [address] [place] [id number] 15 Sep, 2009 [facility] [address] [id number] [address] [place] [phone] May, [facility] [address] [id number] [address] [place] [phone] Apr, [facility] [address] [id number] [address] [place] [phone] Mar, [facility] [address] [id number] [address] [place] [phone] Feb, [facility] [address] [id number] [address] [place] [phone] Feb, [facility] [address] [id number] [address] [place] [phone] Feb, [facility] [address] [id number] [address] [place] [phone] Jan, [facility] [address] [id number] [address] [place] [phone] Jan, [facility] [address] [id number] [address] [place] [id number] Jan, [facility] [address] [id number] [address] [place] [phone] Jan, [facility] [address] [id number] [address] [place] [phone] August, IMMUNIZATIONS No Known Immunizations SOCIAL HISTORY [...] 7 Hospitalization History surgery Hospitalization History [facility], [place] tie [place] few times for BH
--- OUTSIDE RECORDS SUMMARY | 2019-09-29 10:43 | XMS REPORT ---
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 Active 12395388 Problem Open-angle glaucoma of both eyes, unspecified glaucoma stage, unspecified open-angle glaucoma type H40.10X0 Acti ve 85258112 Problem Adjustment disorder, unspecified type F43.20 Active 78010332 Problem Obstructive sleep apnea G47.33 Active 82461375 Problem Hypertensive retinopathy of both eyes H35.033 Active 4629347 Problem Type 2 diabetes mellitus with complication E11.8 Active 12777717 Problem Essential hypertension I10 Active 51196199 Problem Diabetes E11.9 Active 02707144 Problem Bipolar disorder, in partial remission, most rec ent episode manic F31.73 Active 05098170 Problem Intermittent explosive disorder in adult F63.81 Active 14260318 Problem Other diabetic neurological complication associated with type 2 diabetes mellitus E11.49 Active 025793567 Problem Depression F32.9 Active 31680055 Problem Neuropathy G62.9 Active 749291737 Problem Intermittent explosive disorder F63.81 Active 74488682 Problem Bipolar disorder, unspecified F31.9 Active 51548058 Problem Mild intellectual disability F70 A ctive 33617654 Problem Reactive airway disease, mild intermittent, uncomplicated J45.20 Active 805859474 Problem Gastroesophageal reflux disease without esophagitis K21.9 Active 869550134 ALLERGIES No Information ENCOUNTERS Encounter Location Date Diagnosis [facility] [address] [id number] [address] [address] Apr, OUTREACH [facility] [id number] [place] [address] Jan, [facility] [address] [facility] [id number] [address] [place] [address] Jan, [facility] [address] [facility] [id number] [address] [place] [address] Dec, Urinary tract infection with out hematuria, site unspecified N39.0 [facility] [address] [facility] [id number] [address] [place] [address] Dec, Type 2 diabetes mellitus wit h complication E11.8 ; Urinary tract infection without hematuria, site unspecified N39.0 ; Impacted cerumen of both ears H61.23 ; Encounter for immunization Z23 and Hyponatremia E87.1 [facility] [address] [facility] [id number] [address] [place] [address] Dec, Intermittent explosive disor salvatore in adult F63.81 ; Dysuria R30.0 ; Type 2 diabetes mellitus with complication E11.8 ; Bipolar disorder, unspecified F31.9 and Mild intellectual disability F70 [facility] [address] [place] [id number] [address] [place] [address] Dec, Dysuria R30.0 [facility] [address] [facility] [id number] [address] [place] [address] Dec, Intermittent explosive disor salvatore in adult F63.81 ; Bipolar disorder, unspecified F31.9 and Mild intellectual disability F70 [facility] [address] [facility] [id number] [address] [place] [address] Nov, [facility] [address] [place] [id number] [address] [place] [address] Oct, OUTREACH [facility] [id number] [place] [address] Oct, Oral health maintenance stat us requiring routine preventive dental care K08.9 [facility] [address] [facility] [id number] [address] [place] [address] August, Intermittent explosive disor salvatore in adult F63.81 ; Bipolar disorder, unspecified F31.9 and Mild intellectual disability F70 [facility] [address] [facility] [id number] [address] [place] [address] [id number] August, Dental caries K02.9 [facility] [address] [facility] [id number] [address] [place] [address] Jul, Onychomycosis B35.1 ; Other diabetic neurological complication associated with type 2 diabetes mellitus E11.49 and Tinea pedis of both feet B35.3 [facility] [address] [facility] [id number] [address] [place] [address] [id number] Jul, Caries K02.9 [facility] [address] [facility] [id number] [address] [place] [address] Jul, Type 2 diabetes mellitus wit h complication E11.8 ; Tobacco abuse Z72.0 and Bipolar disorder, unspecified F31.9 [facility] [address] [place] [id number] [address] [place] [address] Jun, [facility] [address] [place] [id number] [address] [place] [address] [id number] Jun, Dental examination Z01.20 an d Oral health maintenance status requiring routine preventive dental care K08.9 [facility] [id number] [place] [address] May, Bilateral impacted cerumen H 61.23 [facility] [address] [place] [id number] [address] [place] [address] Apr, Bipolar disorder, unspecifie d F31.9 ; Intermittent explosive disorder in adult F63.81 ; Type 2 diabetes mellitus with complication E11.8 ; Tobacco abuse Z72.0 and Colon cancer screening Z12.11 [facility] [address] [place] [id number] [address] [place] [address] Apr, Onychomycosis B35.1 and Othe r diabetic neurological complication associated with type 2 diabetes mellitus E11.49 [facility] [address] [place] [id number] [address] [place] [address] Apr, Intermittent explosive disor salvatore in adult F63.81 ; Bipolar disorder, unspecified F31.9 and Mild intellectual disability F70 [facility] [address] [facility] [id number] [address] [place] [address] 03 Mar, 2018 Diabetes E11.9 [facility] [address] [facility] [id number] [address] [place] [address] 20 Jan, 2018 Encounter for immunization Z 23 [facility] [address] [place] [id number] [place] [address] 12 Jan, 2018 Tinea pedis of both feet B35 .3 ; Other diabetic neurological complication associated with type 2 diabetes mellitus E11.49 and Onychomycosis B35.1 [place] [address] [place] [id number] [address] [place] [address] Nov, Type 2 diabetes mellitus wit h complication E11.8 [place] [address] [place] [id number] [address] [place] [address] Nov, [facility] [address] [place] [id number] [address] [place] [address] Oct, Intermittent explosive disor salvatore in adult F63.81 ; Bipolar disorder, unspecified F31.9 and Mild intellectual disability F70 [facility] [address] [place] [id number] [address] [place] [address] 11 Oct, 2017 [facility] [address] [place] [id number] [address] [place] [address] [id number] 11 Oct, 2017 Dental examination Z01.20 [facility] [address] [place] [id number] [address] [place] [id number] 06 Oct, 2017 Onychomycosis B35.1 and Othe r diabetic neurological complication associated with type 2 diabetes mellitus E11.49 [facility] [address] [facility] [id number] [address] [place] [address] Sep, Type 2 diabetes mellitus wit h complication E11.8 and Colon cancer screening Z12.11 [place] [address] [place] [id number] [address] [place] [address] Sep, Type 2 diabetes mellitus wit h complication E11.8 ; Colon cancer screening Z12.11 and Neuropathy G62.9 [facility] [address] [place] [id number] [address] [place] [address] August, Diabetes E11.9 [facility] [address] [place] [id number] [address] [place] [address] [id number] Jul, Dental examination Z01.20 [facility] [address] [place] [id number] [address] [place] [address] 27 May, 2017 Mild intellectual disability F70 [place] [address] [address] May, Mild intellectual disability F70 ; High risk medication use Z79.899 ; Intermittent explosive disorder in adult F63.81 and Bipolar disorder, unspecified F31.9 [place] [id number] [address] May, [facility] [address] [place] [id number] [address] [place] [address] May, [facility] [address] [address] Apr, Type 2 diabetes mellitus wit h complication E11.8 ; Mild intellectual disability F70 ; Gastroesophageal reflux disease without esophagitis K21.9 ; Reactive airway disease, mild intermittent, uncomplicated J45.20 and Tobacco abuse Z72.0 [facility] [address] [place] [id number] [address] [place] [address] Apr, High risk medication use Z79 .899 ; Mild intellectual disability F70 ; Intermittent explosive disorder in adult F63.81 and Bipolar disorder, unspecified F31.9 [facility] [address] [place] [id number] [address] [place] [address] [id number] Mar, Encounter for dental exam an d cleaning w/o abnormal findings Z01.20 [facility] [address] [facility] [id number] [address] [place] [address] [id number] 27 Dec, 2017 Dental examination Z01.20 [facility] [address] [id number] [address] [place] [address] 12 Jan, 2017 [facility] [address] [id number] [address] [place] [address] 11 Jan, 2017 [facility] [address] [id number] [address] [place] [phone] 10 Jan, 2017 Mild intellectual disability F70 ; Bipolar disorder, unspecified F31.9 and Intermittent explosive disorder in adult F63.81 [facility] [address] [id number] [address] [place] [address] 02 Jan, 2017 Diabetes E11.9 [facility] [address] [id number] [address] [place] [address] [id number] 13 Dec, 2016 Encounter for dental examina tion and cleaning without abnormal findings Z01.20 [facility] [address] [id number] [address] [place] [id number] 12 Dec, 2016 Bipolar disorder, unspecifie d F31.9 ; Intermittent explosive disorder in adult F63.81 and Mild intellectual disability F70 [facility] [address] [id number] [address] [place] [address] Nov, Diabetes E11.9 [facility] [address] [id number] [address] [place] [phone] Nov, [facility] [address] [id number] [address] [place] [address] Nov, Diabetes E11.9 and Colon can cer screening Z12.[id number] [place] [address] [id number] 21 Sep, 2016 Dental examination Z01.20 [facility] [address] [id number] [address] [place] [address] [id number] 21 Sep, 2016 Encounter for dental examina tion and cleaning without abnormal findings Z01.20 [facility] [address] [id number] [address] [place] [phone] 13 Sep, 2016 Bipolar disorder, unspecifie d F31.9 [facility] [address] [facility] [id number] [address] [place] [phone] 12 Sep, 2016 Bipolar disorder, unspecifie d F31.9 [facility] [address] [id number] [address] [place] [address] Jul, [facility] [address] [facility] [id number] [address] [place] [phone] Jul, Type 2 diabetes mellitus wit h complication E11.8 [facility] [address] [id number] [address] [place] [address] [id number] 15 Jun, 2016 Encounter for dental examina tion and cleaning without abnormal findings Z01.20 [place] [id number] [facility] [id number] [place] [address] [id number] 15 Jun, 2016 Dental examination Z01.20 [facility] [address] [facility] [id number] [address] [place] [address] Apr, Sports physical Z02.5 [facility] [address] [facility] [id number] [address] [place] [phone] 14 Mar, 2016 Bipolar disorder, in partial remission, most recent episode manic F31.73 and Intermittent explosive disorder in adult F63.81 [facility] [address] [facility] [id number] [address] [place] [phone] 08 Mar, 2016 [facility] [address] [facility] [id number] [address] [place] [phone] 06 Mar, 2016 Diabetes E11.9 [facility] [address] [id number] [address] [place] [address] [id number] Feb, Encounter for dental examina tion and cleaning without abnormal findings Z01.20 [facility] [address] [facility] [id number] [address] [place] [phone] 22 Dec, 2015 Nocturnal hypoxemia G47.34 a nd Encounter for immunization Z23 [facility] [address] [facility] [id number] [address] [place] [phone] 15 Dec, 2015 [place] [address] [facility] [id number] [address] [place] [phone] Dec, [facility] [address] [facility] [id number] [address] [place] [phone] Dec, Bipolar disorder, unspecifie d F31.9 [facility] [address] [id number] [address] [place] [address] [id number] Oct, Encounter for dental examina tion and cleaning without abnormal findings Z01.[address] [place] [address] [id number] [id number] 13 Oct, 2015 Dental examination Z01.20 [facility] [address] [facility] [id number] [address] [place] [phone] 07 Oct, 2015 Diabetes E11.9 [place] [address] [facility] [id number] [address] Oct, Diabetes E11.9 ; Reactive ai rway disease, mild intermittent, uncomplicated J45.20 and Tobacco abuse Z72.0 [facility] [address] [facility] [id number] [address] [place] [address] Sep, Bipolar disorder, unspecifie d F31.9 and Depression F32.9 [facility] [address] [facility] [id number] [address] [place] [phone] Sep, [facility] [address] [facility] [id number] [address] [place] [address] August, Tinea pedis of both feet B35 .3 and DM w/o complication type II, uncontrolled E11.65 [facility] [address] [facility] [id number] [address] [place] [address] Jul, [facility] [address] [facility] [id number] [address] [place] [phone] Jul, [facility] [address] [facility] [id number] [address] [place] [phone] Jul, Obstructive sleep apnea G47. 33 [facility] [address] [address] Jun, Diabetes E11.9 [place] [address] [address] Jun, [place] [address] [id number] Jun, [place] [address] [address] Jun, Bipolar disorder, unspecifie d F31.9 and Mental retardation F79 [place] [address] [address] Apr, [place] [address] [address] Feb, Diabetes E11.9 ; Encounter f or immunization Z23 ; Cough R05 and Nicotine abuse Z72.0 [place] [address] [address] Jan, Bipolar disorder, unspecifie d F31.9 and Diabetes mellitus without mention of complication, type II or unspecified type, uncontrolled 250.02 [place] [address] [address] Jan, [place] [address] [address] Dec, Reactive airway disease 493. 90 and Enuresis 788.30 [place] [address] [address] Dec, [place] [address] [address] Nov, [place] [address] [address] Nov, [place] [address] [address] Nov, Annual physical exam V70.0 ; Urinary incontinence 788.30 ; Diabetes 250.00 and Hypertension 401.9 [facility] [address] [id number] [address] [place] [phone] Oct, Diabetes mellitus without me ntion of complication, type II or unspecified type, uncontrolled 250.02 [facility] [address] [facility] [id number] [address] [place] [address] Oct, Diabetes mellitus without me ntion of complication, type II or unspecified type, uncontrolled 250.02 [facility] [address] [id number] [address] [place] [id number] Oct, Diabetes mellitus without me ntion of complication, type II or unspecified type, uncontrolled 250.02 [facility] [address] [facility] [id number] [address] [place] [address] Oct, [facility] [address] [facility] [id number] [address] [place] [address] Oct, [facility] [address] [facility] [id number] [address] [place] [address] Oct, Bipolar disorder, unspecifie d 296.80 [facility] [address] [id number] Sep, Dental examination V72.2 [facility] [address] [place] [id number] [address] [place] [phone] August, [facility] [address] [place] [id number] [place] [address] [id number] August, Dental examination V72.2 [facility] [address] [facility] [id number] [address] [place] [address] August, [facility] [address] [facility] [id number] [address] [place] [phone] Jul, [facility] [address] [facility] [id number] [address] [place] [address] Jul, [facility] [address] [place] [id number] [address] [place] [phone] 17 Jun, 2014 [facility] [address] [id number] [address] [place] [address], [place] [address] 17 Jun, 2014 [facility] [address] [id number] [address] [place] [address], [place] [address] 17 Jun, 2014 [facility] [address] [id number] [address] [place] [address], [place] [address] 17 Jun, 2014 [facility] [address] [id number] [address] [place] [address], [place] [address] 23 May, 2014 [facility] [address] [id number] [address] [place] [address], [place] [address] 23 May, 2014 [facility] [address] [id number] [address] [place] [address], [place] [address] 16 May, 2014 [facility] [address] [id number] [address] [place] [address], [place] [address] 16 May, 2014 [facility] [address] [id number] [address] [place] [address], [place] [address] 16 May, 2014 [facility] [address] [id number] [address] [place] [address], [place] [address] 16 May, 2014 [facility] [address] [id number] [address] [place] [address], [place] [address] 16 May, 2014 [facility] [address] [id number] [address] [place] [address], [place] [address] 16 May, 2014 [facility] [address] [id number] [address] [place] [address], [place] [address] 16 May, 2014 [facility] [address] [id number] [address] [place] [address], [place] [address] 16 May, 2014 [facility] [address] [id number] [address] [place] [address], [place] [address] 16 May, 2014 [facility] [address] [id number] [address] [place] [address], [place] [address] May, [facility] [address] [id number] [address] [place] [address], [place] [address] May, [facility] [address] [id number] [address] [place] [address], [place] [address] May, [facility] [address] [id number] [address] [place] [address], [place] [address] May, [facility] [address] [id number] [address] [place] [address], [place] [address] Apr, [facility] [address] [id number] [address] [place] [address], [place] [address] Apr, [facility] [address] [id number] [address] [place] [address], [place] [address] Apr, [facility] [address] [id number] [address] [place] [address], [place] [address] Apr, [facility] [address] [id number] [address] [place] [address], [place] [address] Apr, [facility] [address] [id number] [address] [place] [address], [place] [address] Apr, [facility] [address] [id number] [address] [place] [address], [place] [address] Apr, [facility] [address] [id number] [address] [place] [address], [place] [address] Apr, [facility] [address] [id number] [address] [place] [address] Apr, [facility] [address] [id number] [address] [place] [address], [place] [address] Apr, [facility] [address] [id number] [address] [place] [address], [place] [address] Apr, [facility] [address] [id number] [address] [place] [address], [place] [address] Apr, [facility] [address] [id number] [address] [place] [address], [place] [address] 10 Mar, 2014 [facility] [address] [id number] [address] [place] [address], [place] [address] Mar, [facility] [address] [id number] [address] [place] [address], [place] [address] Mar, [facility] [address] [id number] [address] [place] [address], [place] [address] Mar, [facility] [address] [id number] [address] [place] [address], [place] [address] Mar, [facility] [address] [id number] [address] [place] [address], [place] [address] Mar, [facility] [address] [id number] [address] [place] [address], [place] [address] 13 Feb, 2014 [facility] [address] [id number] [address] [place] [address], [place] [address] Feb, [facility] [address] [id number] [address] [place] [address], [place] [address] Feb, [facility] [address] [id number] [address] [place] [address], [place] [address] Feb, [facility] [address] [id number] [address] [place] [address], [place] [address] 14 Jan, 2014 [facility] [address] [id number] [address] [place] [address], [place] [address] 14 Jan, 2014 [facility] [address] [id number] [address] [place] [address], [place] [address] 14 Jan, 2014 [facility] [address] [id number] [place] [address], [place] [address] 14 Jan, 2014 [facility] [address] [id number] [address] [place] [address], [place] [address] 22 Dec, 2013 [facility] [address] [id number] [address] [place] [address], [place] [address] 22 Dec, 2013 [facility] [address] [id number] [facility] [place] [address] Dec, [facility] [address] [id number] [address] [place] [address], [place] [address] Dec, [facility] [address] [id number] [facility] [place] [address] Nov, [facility] [address] [id number] [address] [place] [address], [place] [address] Nov, [facility] [address] [id number] [address] [place] [address], [place] [address] Nov, [facility] [address] [id number] [address] [place] [address], [place] [address] Nov, [facility] [address] [id number] [address] [place] [address], [place] [address] Nov, [facility] [address] [id number] [address] [place] [address], [place] [address] Nov, [facility] [address] [id number] [address] [place] [address], [place] [address] Nov, [facility] [address] [id number] [address] [place] [address], [place] [address] Oct, [facility] [address] [id number] [address] [place] [address], [place] [address] Oct, [facility] [address] [id number] [address] [place] [address], [place] [address] Oct, [facility] [address] [id number] [address] [place] [address], [place] [address] Oct, [facility] [address] [id number] [address] [place] [address], [place] [address] Oct, [facility] [address] [id number] [address] [place] [address], [place] [address] Oct, [facility] [address] [id number] [address] [place] [address], [place] [address] Oct, [facility] [address] [id number] [address] [place] [address], [place] [address] Sep, [facility] [address] [id number] [address] [place] [address], [place] [address] Sep, [facility] [address] [id number] [address] [place] [address], [place] [address] Sep, [facility] [address] [id number] [address] [place] [address], [place] [address] Sep, [facility] [address] [id number] [address] [place] [address], [place] [address] Sep, [facility] [address] [id number] [address] [place] [address], [place] [address] Jul, [facility] [address] [id number] [address] [place] [address], [place] [address] Jul, [facility] [address] [id number] [address] [place] [address], [place] [address] Jul, [facility] [address] [id number] [address] [place] [address], [place] [address] Jul, [facility] [address] [id number] [address] [place] [address], [place] [address] Jul, [facility] [address] [id number] [address] [place] [address], [place] [address] Jul, [facility] [address] [id number] [address] [place] [address], [place] [address] Jul, [facility] [address] [id number] [address] [place] [address], [place] [address] Jul, [facility] [address] [id number] [address] [place] [address], [place] [address] Jul, [facility] [address] [id number] [address] [place] [address], [place] [address] Jul, [facility] [address] [id number] [facility] [place] [place] [address] Jul, [facility] [address] [id number] [address] [place] [address], [place] [address] Jul, [facility] [address] [id number] [facility] [place] [address] Jun, [facility] [address] [id number] [address] [place] [address], [place] [address] Jun, [facility] [address] [id number] [address] [place] [address], [place] [address] Jun, [facility] [address] [id number] [address] [place] [address], [place] [address] Jun, [facility] [address] [id number] [address] [place] [address], [place] [address] Jun, [facility] [address] [id number] [address] [place] [address], [place] [address] Jun, [facility] [address] [id number] [address] [place] [address], [place] [address] Jun, [facility] [address] [id number] [address] [place] [address], [place] [address] Jun, [facility] [address] [id number] [address] [place] [address], [place] [address] May, [facility] [address] [id number] [address] [place] [address], [place] [address] May, [facility] [address] [id number] [address] [place] [address], [place] [address] May, [facility] [address] [id number] [address] [place] [address], [place] [address] May, [facility] [address] [id number] [address] [place] [address], [place] [address] May, [facility] [address] [id number] [address] [place] [address], [place] [address] May, [facility] [address] [id number] [address] [place] [address], [place] [address] May, [facility] [address] [id number] [address] [place] [address], [place] [address] May, [facility] [address] [id number] [address] [place] [address], [place] [address] Apr, [facility] [address] [id number] [address] [place] [address], [place] [address] Apr, [facility] [address] [id number] [address] [place] [address], [place] [address] Apr, [facility] [address] [id number] [address] [place] [address], [place] [address] Apr, [facility] [address] [id number] [address] [place] [address], [place] [address] Mar, [facility] [address] [id number] [address] [place] [address], [place] [address] Mar, [facility] [address] [id number] [address] [place] [address], [place] [address] Mar, [facility] [address] [id number] [address] [place] [address], [place] [address] Feb, [facility] [address] [id number] [address] [place] [address], [place] [address] Feb, [facility] [address] [id number] [address] [place] [address], [place] [address] Feb, [facility] [address] [id number] [address] [place] [address], [place] [address] Feb, [facility] [address] [id number] [address] [place] [address], [place] [address] Feb, [facility] [address] [id number] [address] [place] [address], [place] [address] Feb, [facility] [address] [id number] [address] [place] [address], [place] [address] Jan, [facility] [address] [id number] [address] [place] [address], [place] [address] Jan, [facility] [address] [id number] [address] [place] [address], [place] [address] Jan, [facility] [address] [id number] [address] [place] [address], [place] [address] Jan, [facility] [address] [id number] [address] [place] [address], [place] [address] Jan, [facility] [address] [id number] [address] [place] [address], [place] [address] Jan, [facility] [address] [id number] [address] [place] [address], [place] [address] Jan, [facility] [address] [id number] [address] [place] [address], [place] [address] Dec, [facility] [address] [id number] [address] [place] [address], [place] [address] 16 Dec, 2012 [facility] [address] [id number] [address] [place] [address], [place] [address] 10 Dec, 2012 [facility] [address] [id number] [address] [place] [address], [place] [address] 05 Dec, 2012 [facility] [address] [id number] [address] [place] [address], [place] [address] Nov, [facility] [address] [id number] [address] [place] [address], [place] [address] Nov, [facility] [address] [id number] [address] [place] [address], [place] [address] Nov, [facility] [address] [id number] [address] [place] [address], [place] [address] Nov, [facility] [address] [id number] [address] [place] [address], [place] [address] Nov, [facility] [address] [id number] [address] [place] [address], [place] [address] Nov, [facility] [address] [id number] [address] [place] [address], [place] [address] Nov, [facility] [address] [id number] [address] [place] [address], [place] [address] Oct, [facility] [address] [id number] [address] [place] [address], [place] [address] Oct, [facility] [address] [id number] [address] [place] [address], [place] [address] Oct, [facility] [address] [id number] [address] [place] [address], [place] [address] Oct, [facility] [address] [id number] [address] [place] [address], [place] [address] Oct, [facility] [address] [id number] [address] [place] [address], [place] [address] Oct, [facility] [address] [id number] [address] [place] [address], [place] [address] Oct, [facility] [address] [id number] [address] [place] [address], [place] [address] Oct, [facility] [address] [id number] [address] [place] [address], [place] [address] Sep, [id number] [place] [id number] August, [facility] [address] [id number] [address] [place] [address], [place] [address] August, [facility] [address] [id number] [address] [place] [address], [place] [address] Jul, [facility] [address] [id number] [address] [place] [address], [place] [address] Jul, [facility] [address] [id number] [address] [place] [address], [place] [address] 25 Jul, 2012 [facility] [address] [id number] [address] [place] [address], [place] [address] 22 Jul, 2012 [facility] [address] [id number] [address] [place] [address], [place] [address] 18 Jul, 2012 [facility] [address] [id number] [address] [place] [address], [place] [address] 17 Jul, 2012 [facility] [address] [id number] [address] [place] [address], [place] [address] 16 Jul, 2012 [facility] [address] [id number] [address] [place] [address], [place] [address] 21 Jun, 2012 [facility] [address] [id number] [address] [place] [address], [place] [address] 18 Jun, 2012 [facility] [address] [id number] [address] [place] [address], [place] [address] Jun, [facility] [address] [id number] [address] [place] [address], [place] [address] 04 Jun, 2012 [facility] [address] [id number] [address] [place] [address], [place] [address] 04 Jun, 2012 [facility] [address] [id number] [address] [place] [address], [place] [address] May, [facility] [address] [id number] [address] [place] [address], [place] [address] 18 May, 2012 [facility] [address] [id number] [address] [place] [address], [place] [address] 04 May, 2012 [facility] [address] [id number] [address] [place] [address], [place] [address] 15 Apr, 2012 [facility] [address] [id number] [address] [place] [address], [place] [address] 14 Apr, 2012 [facility] [address] [id number] [address] [place] [address], [place] [address] Apr, [facility] [address] [id number] [address] [place] [address], [place] [address] Mar, [facility] [address] [id number] [address] [place] [address], [place] [address] Mar, [facility] [address] [id number] [address] [place] [address], [place] [address] Mar, [facility] [address] [id number] [address] [place] [address], [place] [address] Mar, [facility] [address] [id number] [address] [place] [address], [place] [address] Mar, [facility] [address] [id number] [address] [place] [address], [place] [address] Mar, [facility] [address] [id number] [address] [place] [address], [place] [address] Feb, [facility] [address] [id number] [address] [place] [address], [place] [address] Feb, [facility] [address] [id number] [address] [place] [address], [place] [address] Jan, [facility] [address] [id number] [address] [place] [address], [place] [address] Jan, [facility] [address] [id number] [address] [place] [address], [place] [address] Dec, [facility] [address] [id number] [address] [place] [address], [place] [address] Nov, [facility] [address] [id number] [address] [place] [address], [place] [address] Nov, [facility] [address] [id number] [address] [place] [address], [place] [address] Nov, [facility] [address] [id number] [address] [place] [address], [place] [address] Nov, [facility] [address] [id number] [address] [place] [address], [place] [address] Oct, [facility] [address] [id number] [address] [place] [address], [place] [address] Oct, [facility] [address] [id number] [address] [place] [address], [place] [address] Oct, [facility] [address] [id number] [address] [place] [address], [place] [address] Sep, [facility] [address] [id number] [address] [place] [address], [place] [address] Sep, [facility] [address] [id number] [address] [place] [address], [place] [address] Sep, [facility] [address] [id number] [address] [place] [address], [place] [address] August, [facility] [address] [id number] [address] [place] [address], [place] [address] August, [facility] [address] [id number] [address] [place] [address], [place] [address] Jul, [facility] [address] [id number] [address] [place] [address], [place] [address] 24 Jul, 2011 [facility] [address] [id number] [address] [place] [address], [place] [address] Jul, [facility] [address] [id number] [address] [place] [address], [place] [address] Jul, [facility] [address] [id number] [address] [place] [address], [place] [address] Jun, [facility] [address] [id number] [address] [place] [address], [place] [address] May, [facility] [address] [id number] [address] [place] [address], [place] [address] Apr, [facility] [address] [id number] [address] [place] [address], [place] [address] Apr, [facility] [address] [id number] [address] [place] [address], [place] [address] Apr, [facility] [address] [id number] [address] [place] [address], [place] [address] Apr, [facility] [address] [id number] [address] [place] [address], [place] [address] Apr, [facility] [address] [id number] [address] [place] [address], [place] [address] Apr, [facility] [address] [id number] [address] [place] [address], [place] [address] Mar, [facility] [address] [id number] [address] [place] [address], [place] [address] Mar, [facility] [address] [id number] [address] [place] [address], [place] [address] Feb, [facility] [address] [id number] [address] [place] [address], [place] [address] Feb, [facility] [address] [id number] [address] [place] [address], [place] [address] Feb, [facility] [address] [id number] [address] [place] [address], [place] [address] Feb, [facility] [address] [id number] [address] [place] [address], [place] [address] Jan, [facility] [address] [id number] [address] [place] [address], [place] [address] Jan, [facility] [address] [id number] [address] [place] [address], [place] [address] Jan, [facility] [address] [id number] [address] [place] [address], [place] [address] Jan, [facility] [address] [id number] [address] [place] [address], [place] [address] Nov, [facility] [address] [id number] [address] [place] [address], [place] [address] Mar, [facility] [address] [id number] [address] [place] [id number] 02 Mar, 2010 [facility] [address] [id number] [address] [place] [address], [place] [address] 30 Feb, 2010 [facility] [address] [id number] [address] [place] [address], [place] [address] 15 Feb, 2010 [facility] [address] [id number] [address] [place] [address], [place] [address] Jan, [facility] [address] [id number] [address] [place] [address], [place] [address] 19 Jan, 2010 [facility] [address] [id number] [address] [place] [id number] 15 Sep, 2009 [facility] [address] [id number] [address] [place] [address], [place] [address] 16 May, 2009 [facility] [address] [id number] [address] [place] [id number] Apr, [facility] [address] [id number] [address] [place] [phone] Mar, [facility] [address] [id number] [address] [place] [id number] 15 Feb, 2009 [facility] [address] [id number] [address] [place] [phone] 10 Feb, 2009 [facility] [address] [id number] [address] [place] [phone] 10 Feb, 2009 [facility] [address] [id number] [address] [place] [id number] 22 Jan, 2009 [facility] [address] [id number] [address] [place] [phone] 13 Jan, 2009 [facility] [address] [id number] [address] [place] [phone] 13 Jan, 2009 [facility] [address] [id number] [address] [address] Jan, [facility] [address] [facility] [id number] [address] [address] August, IMMUNIZATIONS No Known Immunizations SOCIAL HISTORY Never Assessed REASON FOR VISIT PLAN OF CARE VITAL SIGNS Height 65 in 2013-09-23 Weight 209.38 lbs 2013-09-23 Temperature 98.9 degrees Fahrenheit 2013-09-23 Heart Rate 78 bpm 2013-09-23 Respiratory Rate 28 2013-09-23 Blood pressure systolic 104 mmHg 2013-09-23 Blood pressure diastolic 80 mmHg 2013-09-23 MEDICATIONS Unknown Medications RESULTS No Results PROCEDURES [...] Hospitalization History [facility], in[facility] tient treatment few times for BH
--- OUTSIDE RECORDS SUMMARY | 2019-09-29 10:43 | XMS REPORT ---
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 Active 60267163 Problem Open-angle glaucoma of both eyes, unspecified glaucoma stage, unspecified open-angle glaucoma type H40.10X0 Acti ve 46468914 Problem Adjustment disorder, unspecified type F43.20 Active 97256322 Problem Obstructive sleep apnea G47.33 Active 17298641 Problem Hypertensive retinopathy of both eyes H35.033 Active 8087150 Problem Type 2 diabetes mellitus with complication E11.8 Active 08806426 Problem Essential hypertension I10 Active 59578111 Problem Diabetes E11.9 Active 37815041 Problem Bipolar disorder, in partial remission, most rec ent episode manic F31.73 Active 83437697 Problem Intermittent explosive disorder in adult F63.81 Active 69369729 Problem Other diabetic neurological complication associated with type 2 diabetes mellitus E11.49 Active 287882146 Problem Depression F32.9 Active 92500953 Problem Neuropathy G62.9 Active 932407817 Problem Intermittent explosive disorder F63.81 Active 05022373 Problem Bipolar disorder, unspecified F31.9 Active 04215199 Problem Mild intellectual disability F70 A ctive 04465094 Problem Reactive airway disease, mild intermittent, uncomplicated J45.20 Active 367387889 Problem Gastroesophageal reflux disease without esophagitis K21.9 Active [id number] ALLERGIES No Information ENCOUNTERS Encounter Location Date Diagnosis [facility] [address] [facility] [id number] [address] [place] [address] Apr, [facility] [address] [id number] [address] Jan, [facility] [address] [facility] [id number] [address] [place] [address] Jan, [facility] [address] [facility] [id number] [address] [place] [address] Jan, [facility] [address] [facility] [id number] [address] [place] [phone] Dec, Urinary tract infection with out hematuria, site unspecified N39.0 [facility] [address] [facility] [id number] [address] [place] [address] Dec, Type 2 diabetes mellitus wit h complication E11.8 ; Urinary tract infection without hematuria, site unspecified N39.0 ; Impacted cerumen of both ears H61.23 ; Encounter for immunization Z23 and Hyponatremia E87.1 [facility] [address] [facility] [id number] [address] [place] [address] Dec, Intermittent explosive disor salvatore in adult F63.81 ; Dysuria R30.0 ; Type 2 diabetes mellitus with complication E11.8 ; Bipolar disorder, unspecified F31.9 and Mild intellectual disability F70 [facility] [address] [facility] [id number] [address] [place] [address] Dec, Dysuria R30.0 [facility] [address] [facility] [id number] [address] [place] [address] Dec, Intermittent explosive disor salvatore in adult F63.81 ; Bipolar disorder, unspecified F31.9 and Mild intellectual disability F70 [facility] [address] [facility] [id number] [address] [place] [address] Nov, [facility] [address] [facility] [id number] [address] [place] [address] Oct, [facility] [address] [facility] 340 [id number], [place] [address] Oct, Oral health maintenance stat us requiring routine preventive dental care K08.9 [facility] [address] [facility] [id number] [address] [place] [address] August, Intermittent explosive disor salvatore in adult F63.81 ; Bipolar disorder, unspecified F31.9 and Mild intellectual disability F70 [facility] [address] [id number] [address] [place] [address] [id number] August, Dental caries K02.9 [facility] [address] [facility] [id number] [address] [place] [address] Jul, Onychomycosis B35.1 ; Other diabetic neurological complication associated with type 2 diabetes mellitus E11.49 and Tinea pedis of both feet B35.3 [facility] [address] [id number] [address] [place] [address] [id number] Jul, Caries K02.9 [facility] [address] [facility] [id number] [address] [place] [address] Jul, Type 2 diabetes mellitus wit h complication E11.8 ; Tobacco abuse Z72.0 and Bipolar disorder, unspecified F31.9 [facility] [address] [facility] [id number] [address] [place] [address] Jun, [facility] [address] [place] [id number] [address] [place] [address] [id number] Jun, Dental examination Z01.20 an d Oral health maintenance status requiring routine preventive dental care K08.9 [facility] [address] [place] [id number] [address] [place] [address] May, Bilateral impacted cerumen H 61.23 [facility] [address] [facility] [id number] [address] [place] [address] Apr, Bipolar disorder, unspecifie d F31.9 ; Intermittent explosive disorder in adult F63.81 ; Type 2 diabetes mellitus with complication E11.8 ; Tobacco abuse Z72.0 and Colon cancer screening Z12.11 [facility] [address] [facility] [id number] [address] [place] [address] Apr, Onychomycosis B35.1 and Othe r diabetic neurological complication associated with type 2 diabetes mellitus E11.49 [facility] [address] [facility] [id number] [address] [place] [address] Apr, Intermittent explosive disor salvatore in adult F63.81 ; Bipolar disorder, unspecified F31.9 and Mild intellectual disability F70 [facility] [address] [facility] [id number] [address] [place] [address] Mar, Diabetes E11.9 [facility] [address] [facility] [id number] [address] [place] [address] Jan, Encounter for immunization Z 23 [facility] [address] [facility] [id number] [address] [place] [phone] Jan, Tinea pedis of both feet B35 .3 ; Other diabetic neurological complication associated with type 2 diabetes mellitus E11.49 and Onychomycosis B35.1 [place] [address] [place] [id number] [address] [place] [address] Nov, Type 2 diabetes mellitus wit h complication E11.8 [place] [address] [facility] [id number] [address] [place] [address] Nov, [facility] [address] [facility] [id number] [address] [place] [address] Oct, Intermittent explosive disor salvatore in adult F63.81 ; Bipolar disorder, unspecified F31.9 and Mild intellectual disability F70 [facility] [address] [facility] [id number] [address] [place] [address] Oct, [facility] [address] [id number] [address] [place] [address] [id number] Oct, Dental examination Z01.20 [facility] [address] [facility] [id number] [address] [place] [address] Oct, Onychomycosis B35.1 and Othe r diabetic neurological complication associated with type 2 diabetes mellitus E11.49 [facility] [address] [facility] [id number] [address] [place] [address] Sep, Type 2 diabetes mellitus wit h complication E11.8 and Colon cancer screening Z12.11 [facility] [address] [facility] [id number] [address] [place] [phone] 18 Sep, 2017 Type 2 diabetes mellitus wit h complication E11.8 ; Colon cancer screening Z12.11 and Neuropathy G62.9 [facility] [address] [facility] [id number] [address] [place] [address] August, Diabetes E11.9 [facility] [address] [id number] [address] [place] [address] [id number] Jul, Dental examination Z01.20 [facility] [address] [facility] [id number] [address] [place] [address] 27 May, 2017 Mild intellectual disability F70 [place] [address] [facility] [id number] [address] [place] [address] 07 May, 2017 Mild intellectual disability F70 ; High risk medication use Z79.899 ; Intermittent explosive disorder in adult F63.81 and Bipolar disorder, unspecified F31.9 [facility] [address] [facility] [id number] [address] [place] [address] 05 May, 2017 [facility] [address] [facility] [id number] [address] [place] [address] May, [facility] [address] [facility] [id number] [address] [place] [address] Apr, Type 2 diabetes mellitus wit h complication E11.8 ; Mild intellectual disability F70 ; Gastroesophageal reflux disease without esophagitis K21.9 ; Reactive airway disease, mild intermittent, uncomplicated J45.20 and Tobacco abuse Z72.0 [facility] [address] [facility] [id number] [address] [place] [address] Apr, High risk medication use Z79 .899 ; Mild intellectual disability F70 ; Intermittent explosive disorder in adult F63.81 and Bipolar disorder, unspecified F31.9 [facility] [address] [id number] [address] [place] [address] [phone] Mar, Encounter for dental exam an d cleaning w/o abnormal findings Z01.20 [facility] [address] [id number] [address] [place] [address] [id number] Mar, Dental examination Z01.20 [facility] [address] [id number] [address] [place] [address] 12 Jan, 2017 [facility] [address] [id number] [address] [place] [address] Jan, [facility] [address] [id number] [address] [place] [address] 10 Jan, 2017 Mild intellectual disability F70 ; Bipolar disorder, unspecified F31.9 and Intermittent explosive disorder in adult F63.81 [facility] [address] [id number] [address] [place] [address] 02 Jan, 2017 Diabetes E11.9 [facility] [address] [id number] [address] [place] [address] [id number] 13 Dec, 2016 Encounter for dental examina tion and cleaning without abnormal findings Z01.20 [facility] [address] [id number] [address] [place] [address] 12 Dec, 2016 Bipolar disorder, unspecifie d F31.9 ; Intermittent explosive disorder in adult F63.81 and Mild intellectual disability F70 [facility] [address] [id number] [address] [place] [address] Nov, Diabetes E11.9 [facility] [address] [id number] [address] [place] [address] Nov, [facility] [address] [id number] [address] [place] [address] Nov, Diabetes E11.9 and Colon can cer screening Z12.11 [place] [id number] [id number] [place] [address] [id number] Sep, Dental examination Z01.20 [facility] [address] [id number] [address] [place] [address] [id number] Sep, Encounter for dental examina tion and cleaning without abnormal findings Z01.20 [facility] [address] [id number] [address] [place] [address] 13 Sep, 2016 Bipolar disorder, unspecifie d F31.9 [facility] [address] [id number] [address] [place] [address] 12 Sep, 2016 Bipolar disorder, unspecifie d F31.9 [facility] [address] [id number] [address] [place] [address] Jul, [facility] [address] [id number] [address] [place] [address] Jul, Type 2 diabetes mellitus wit h complication E11.8 [facility] [address] [id number] [address] [place] [address] [phone] Jun, Encounter for dental examina tion and cleaning without abnormal findings Z01.20 [facility] [id number] [place] [address] [id number] Jun, Dental examination Z01.20 [facility] [address] [facility] [id number] [address] [place] [address] 18 Apr, 2016 Sports physical Z02.5 [facility] [address] [facility] [id number] [address] [place] [address] 14 Mar, 2016 Bipolar disorder, in partial remission, most recent episode manic F31.73 and Intermittent explosive disorder in adult F63.81 [facility] [address] [id number] [address] [place] [address] 08 Mar, 2016 [facility] [address] [id number] [address] [place] [phone] 06 Mar, 2016 Diabetes E11.9 [facility] [address] [id number] [address] [place] [address] [phone] Feb, Encounter for dental examina tion and cleaning without abnormal findings Z01.20 [facility] [address] [id number] [address] [place] [address] 22 Dec, 2015 Nocturnal hypoxemia G47.34 a nd Encounter for immunization Z23 [facility] [address] [facility] [id number] [address] [place] [address] 15 Dec, 2015 [facility] [address] [facility] [id number] [address] [place] [address] 12 Dec, 2015 [facility] [address] [facility] [id number] [address] [place] [address] Dec, Bipolar disorder, unspecifie d F31.9 [facility] [address] [id number] [address] [place] [address] [id number] Oct, Encounter for dental examina tion and cleaning without abnormal findings Z01.[address] [place] [id number] [place] [address] [id number] Oct, Dental examination Z01.20 [facility] [address] [facility] [id number] [address] [place] [id number] 07 Oct, 2015 Diabetes E11.9 [place] [address] [facility] [id number] [address] [place] [address] Oct, Diabetes E11.9 ; Reactive ai rway disease, mild intermittent, uncomplicated J45.20 and Tobacco abuse Z72.0 [place] [address] [place] [id number] [address] [place] [address] Sep, Bipolar disorder, unspecifie d F31.9 and Depression F32.9 [facility] [address] [facility] [id number] [address] [place] [phone] Sep, [facility] [address] [facility] [id number] [address] [place] [address] August, Tinea pedis of both feet B35 .3 and DM w/o complication type II, uncontrolled E11.65 [facility] [address] [facility] [id number] [address] [place] [address] Jul, [facility] [address] [facility] [id number] [address] [place] [address] Jul, [facility] [address] [address] Jul, Obstructive sleep apnea G47. 33 [facility] [id number] [place] [address] Jun, Diabetes E11.9 [place] [address] [address] Jun, [place] [address] [address] Jun, [place] [address] [address] Jun, Bipolar disorder, unspecifie d F31.9 and Mental retardation F79 [place] [address] [address] Apr, [place] [address] [address] Feb, Diabetes E11.9 ; Encounter f or immunization Z23 ; Cough R05 and Nicotine abuse Z72.0 [place] [address] [address] Jan, Bipolar disorder, unspecifie d F31.9 and Diabetes mellitus without mention of complication, type II or unspecified type, uncontrolled 250.02 [place] [address] [address] Jan, [place] [address] [address] Dec, Reactive airway disease 493. 90 and Enuresis 788.30 [place] [address] [address] Dec, [place] [address] [address] Nov, [place] [address] [place] [id number] [place] [address] Nov, [facility] [address] [id number] [address] [place] [address] Nov, Annual physical exam V70.0 ; Urinary incontinence 788.30 ; Diabetes 250.00 and Hypertension 401.9 [facility] [address] [id number] [address] [place] [address] Oct, Diabetes mellitus without me ntion of complication, type II or unspecified type, uncontrolled 250.02 [facility] [address] [id number] [address] [place] [address] Oct, Diabetes mellitus without me ntion of complication, type II or unspecified type, uncontrolled 250.02 [facility] [address] [facility] [id number] [address] [place] [address] Oct, Diabetes mellitus without me ntion of complication, type II or unspecified type, uncontrolled 250.02 [facility] [address] [facility] [id number] [address] [place] [address] Oct, [facility] [address] [id number] [address] [place] [address] Oct, [facility] [address] [facility] [id number] [address] [place] [address] Oct, Bipolar disorder, unspecifie d 296.80 [facility] [address] [id number] [address] [place] [address] [id number] Sep, Dental examination V72.2 [facility] [address] [id number] [address] [place] [address] August, [facility] [address] [id number] [address] [place] [address] [phone] August, Dental examination V72.2 [facility] [address] [id number] [address] [place] [address] August, [facility] [address] [facility] [id number] [address] [place] [address] 14 Jul, 2014 [facility] [address] [id number] [address] [place] [address], [place] [address] 13 Jul, 2014 [facility] [address] [id number] [address] [place] [address], [place] [address] 17 Jun, 2014 [facility] [address] [id number] [address] [place] [address], [place] [address] 17 Jun, 2014 [facility] [address] [id number] [address] [place] [address], [place] [address] 17 Jun, 2014 [facility] [address] [id number] [address] [place] [address], [place] [address] 17 Jun, 2014 [facility] [address] [id number] [address] [place] [address], [place] [address] 23 May, 2014 [facility] [address] [id number] [address] [place] [address], [place] [address] 23 May, 2014 [facility] [address] [id number] [address] [place] [address], [place] [address] 16 May, 2014 [facility] [address] [id number] [address] [place] [address], [place] [address] 16 May, 2014 [facility] [address] [id number] [address] [place] [address], [place] [address] 16 May, 2014 [facility] [address] [id number] [address] [place] [address], [place] [address] 16 May, 2014 [facility] [address] [id number] [address] [place] [phone] 16 May, 2014 [facility] [address] [id number] [address] [place] [address], [place] [address] 16 May, 2014 [facility] [address] [id number] [address] [place] [address] 16 May, 2014 [facility] [address] [id number] [address] [place] [address] 16 May, 2014 [facility] [address] [id number] [address] [place] [address], [place] [address] May, [facility] [address] [id number] [address] [place] [address], [place] [address] May, [facility] [address] [id number] [address] [place] [address], [place] [address] May, [facility] [address] [id number] [address] [place] [address], [place] [address] May, [facility] [address] [id number] [address] [place] [address], [place] [address] May, [facility] [address] [id number] [address] [place] [address], [place] [address] Apr, [facility] [address] [id number] [address] [place] [address], [place] [address] Apr, [facility] [address] [id number] [address] [place] [address], [place] [address] Apr, [facility] [address] [id number] [address] [place] [address], [place] [address] Apr, [facility] [address] [id number] [address] [place] [address], [place] [address] Apr, [facility] [address] [id number] [address] [place] [address], [place] [address] Apr, [facility] [address] [id number] [address] [place] [address], [place] [address] Apr, [facility] [address] [id number] [address] [place] [address], [place] [address] Apr, [facility] [address] [id number] [address] [place] [address], [place] [address] Apr, [facility] [address] [id number] [address] [place] [address], [place] [address] Apr, [facility] [address] [id number] [address] [place] [address] [place] [address] Apr, [facility] [address] [id number] [address] [place] [address], [place] [address] Apr, [facility] [address] [id number] [address] [place] [address], [place] [address] Mar, [facility] [address] [id number] [address] [place] [address], [place] [address] Mar, [facility] [address] [id number] [address] [place] [address], [place] [address] Mar, [facility] [address] [id number] [address] [place] [address], [place] [address] Mar, [facility] [address] [id number] [address] [place] [address], [place] [address] Mar, [facility] [address] [id number] [address] [place] [address], [place] [address] Mar, [facility] [address] [id number] [address] [place] [address], [place] [address] Feb, [facility] [address] [id number] [address] [place] [address], [place] [address] Feb, [facility] [address] [id number] [address] [place] [address], [place] [address] Feb, [facility] [address] [id number] [address] [place] [address], [place] [address] Feb, [facility] [address] [id number] [address] [place] [address], [place] [address] 14 Jan, 2014 [facility] [address] [id number] [address] [place] [address], [place] [address] 14 Jan, 2014 [facility] [address] [id number] [address] [place] [address], [place] [address] 14 Jan, 2014 [facility] [address] [id number] [address] [place] [address], [place] [address] 14 Jan, 2014 [facility] [address] [id number] [address] [place] [address] Dec, [facility] [address] [id number] [address] [place] [address] Dec, [facility] [address] [id number] [address] [place] [address] 15 Dec, 2013 [facility] [address] [id number] [address] [place] [address], [place] [address] Dec, [facility] [address] [id number] [address] [place] [address], [place] [address] Nov, [facility] [address] [id number] [address] [place] [address], [place] [address] Nov, [facility] [address] [id number] [address] [place] [address], [place] [address] Nov, [facility] [address] [id number] [address] [place] [address], [place] [address] Nov, [facility] [address] [id number] [address] [place] [address], [place] [address] Nov, [facility] [address] [id number] [address] [place] [address], [place] [address] Nov, [facility] [address] [id number] [address] [place] [address], [place] [address] Nov, [facility] [address] [id number] [address] [place] [address], [place] [address] Oct, [facility] [address] [id number] [address] [place] [address], [place] [address] Oct, [facility] [address] [id number] [address] [place] [address], [place] [address] Oct, [facility] [address] [id number] [address] [place] [address], [place] [address] Oct, [facility] [address] [id number] [address] [place] [address], [place] [address] Oct, [facility] [address] [id number] [address] [place] [address] Oct, [facility] [address] [id number] [address] [place] [address], [place] [address] Oct, [facility] [address] [id number] [address] [place] [address], [place] [address] Sep, [facility] [address] [id number] [address] [place] [address], [place] [address] Sep, [facility] [address] [id number] [address] [place] [address], [place] [address] Sep, [facility] [address] [id number] [address] [place] [address], [place] [address] Sep, [facility] [address] [id number] [address] [place] [address], [place] [address] Sep, [facility] [address] [id number] [address] [place] [address], [place] [address] Jul, [facility] [address] [id number] [address] [place] [address], [place] [address] Jul, [facility] [address] [id number] [address] [place] [address], [place] [address] Jul, [facility] [address] [id number] [address] [place] [address], [place] [address] Jul, [facility] [address] [id number] [address] [place] [address], [place] [address] Jul, [facility] [address] [id number] [address] [place] [address], [place] [address] Jul, [facility] [address] [id number] [address] [place] [address], [place] [address] Jul, [facility] [address] [id number] [address] [place] [address], [place] [address] Jul, [facility] [address] [id number] [address] [place] [address] Jul, [facility] [address] [id number] [address] [place] [address] Jul, [facility] [address] [id number] [address] [place] [address] Jul, [facility] [address] [id number] [address] [place] [address], [place] [address] Jul, [facility] [address] [id number] [address] [place] [address], [place] [address] Jun, [facility] [address] [id number] [address] [place] [address], [place] [address] Jun, [facility] [address] [id number] [address] [place] [address], [place] [address] Jun, [facility] [address] [id number] [address] [place] [address], [place] [address] Jun, [facility] [address] [id number] [address] [place] [address], [place] [address] Jun, [facility] [address] [id number] [address] [place] [address], [place] [address] Jun, [facility] [address] [id number] [address] [place] [address], [place] [address] Jun, [facility] [address] [id number] [address] [place] [address], [place] [address] Jun, [facility] [address] [id number] [address] [place] [address], [place] [address] May, [facility] [address] [id number] [address] [place] [address], [place] [address] May, [facility] [address] [id number] [address] [place] [address], [place] [address] May, [facility] [address] [id number] [address] [place] [address], [place] [address] May, [facility] [address] [id number] [address] [place] [address] May, [facility] [address] [id number] [address] [place] [address], [place] [address] May, [facility] [address] [id number] [address] [place] [address], [place] [address] May, [facility] [address] [id number] [address] [place] [address], [place] [address] May, [facility] [address] [id number] [address] [place] [address], [place] [address] Apr, [facility] [address] [id number] [address] [place] [address], [place] [address] Apr, [facility] [address] [id number] [address] [place] [address], [place] [address] Apr, [facility] [address] [id number] [address] [place] [address], [place] [address] Apr, [facility] [address] [id number] [address] [place] [address], [place] [address] Mar, [facility] [address] [id number] [address] [place] [address], [place] [address] Mar, [facility] [address] [id number] [address] [place] [address], [place] [address] Mar, [facility] [address] [id number] [address] [place] [address], [place] [address] Feb, [facility] [address] [id number] [address] [place] [address], [place] [address] Feb, [facility] [address] [id number] [address] [place] [address], [place] [address] Feb, [facility] [address] [id number] [address] [place] [address], [place] [address] Feb, [facility] [address] [id number] [address] [place] [address], [place] [address] Feb, [facility] [address] [id number] [address] [place] [address], [place] [address] Feb, [facility] [address] [id number] [address] [place] [address], [place] [address] Jan, [facility] [address] [id number] [address] [place] [address], [place] [address] Jan, [facility] [address] [id number] [address] [place] [address], [place] [address] Jan, [facility] [address] [id number] [address] [place] [address], [place] [address] Jan, [facility] [address] [id number] [address] [place] [address], [place] [address] Jan, [facility] [address] [id number] [address] [place] [address], [place] [address] Jan, [facility] [address] [id number] [address] [place] [address], [place] [address] Jan, [facility] [address] [id number] [address] [place] [address], [place] [address] 25 Dec, 2012 [facility] [address] [id number] [address] [place] [address], [place] [address] 16 Dec, 2012 [facility] [address] [id number] [address] [place] [address], [place] [address] 10 Dec, 2012 [facility] [address] [id number] [address] [place] [address], [place] [address] 05 Dec, 2012 [facility] [address] [id number] [address] [place] [address], [place] [address] Nov, [facility] [address] [id number] [address] [place] [address], [place] [address] Nov, [facility] [address] [id number] [address] [place] [address], [place] [address] Nov, [facility] [address] [id number] [address] [place] [address], [place] [address] Nov, [facility] [address] [id number] [address] [place] [address], [place] [address] Nov, [facility] [address] [id number] [address] [place] [address], [place] [address] Nov, [facility] [address] [id number] [address] [place] [address], [place] [address] Nov, [facility] [address] [id number] [address] [place] [address], [place] [address] Oct, [facility] [address] [id number] [address] [place] [address], [place] [address] Oct, [facility] [address] [id number] [address] [place] [address], [place] [address] Oct, [facility] [address] [id number] [address] [place] [address], [place] [address] Oct, [facility] [address] [id number] [address] [place] [address], [place] [address] Oct, [facility] [address] [id number] [address] [place] [address], [place] [address] Oct, [facility] [address] [id number] [address] [place] [address], [place] [address] Oct, [facility] [address] [id number] [address] [place] [address], [place] [address] Oct, [facility] [address] [id number] [address] [place] [address], [place] [address] Sep, [facility] [id number] [id number] August, [facility] [address] [id number] [address] [place] [address], [place] [address] August, [facility] [address] [id number] [address] [place] [address] 29 Jul, 2012 [facility] [address] [id number] [address] [place] [address], [place] [address] 29 Jul, 2012 [facility] [address] [id number] [address] [place] [address], [place] [address] Jul, [facility] [address] [id number] [address] [place] [address], [place] [address] Jul, [facility] [address] [id number] [address] [place] [address], [place] [address] 18 Jul, 2012 [facility] [address] [id number] [address] [place] [address], [place] [address] 17 Jul, 2012 [facility] [address] [id number] [address] [place] [address], [place] [address] 16 Jul, 2012 [facility] [address] [id number] [address] [place] [address], [place] [address] Jun, [facility] [address] [id number] [address] [place] [address], [place] [address] Jun, [facility] [address] [id number] [address] [place] [address], [place] [address] Jun, [facility] [address] [id number] [address] [place] [address], [place] [address] Jun, [facility] [address] [id number] [address] [place] [address], [place] [address] Jun, [facility] [address] [id number] [address] [place] [address], [place] [address] May, [facility] [address] [id number] [address] [place] [address], [place] [address] May, [facility] [address] [id number] [address] [place] [address], [place] [address] May, [facility] [address] [id number] [address] [place] [address] 15 Apr, 2012 [facility] [address] [id number] [address] [place] [address], [place] [address] 14 Apr, 2012 [facility] [address] [id number] [address] [place] [address], [place] [address] Apr, [facility] [address] [id number] [address] [place] [address], [place] [address] 31 Mar, 2012 [facility] [address] [id number] [address] [place] [address], [place] [address] 31 Mar, 2012 [facility] [address] [id number] [address] [place] [address], [place] [address] Mar, [facility] [address] [id number] [address] [place] [address], [place] [address] Mar, [facility] [address] [id number] [address] [place] [address], [place] [address] Mar, [facility] [address] [id number] [address] [place] [address], [place] [address] Mar, [facility] [address] [id number] [address] [place] [address], [place] [address] Feb, [facility] [address] [id number] [address] [place] [address], [place] [address] Feb, [facility] [address] [id number] [address] [place] [address], [place] [address] Jan, [facility] [address] [id number] [address] [place] [address], [place] [address] Jan, [facility] [address] [id number] [address] [place] [address], [place] [address] Dec, [facility] [address] [id number] [address] [place] [address], [place] [address] Nov, [facility] [address] [id number] [address] [place] [address], [place] [address] Nov, [facility] [address] [id number] [address] [place] [address], [place] [address] Nov, [facility] [address] [id number] [address] [place] [address], [place] [address] Nov, [facility] [address] [id number] [address] [place] [address], [place] [address] Oct, [facility] [address] [id number] [address] [place] [address], [place] [address] Oct, [facility] [address] [id number] [address] [place] [address], [place] [address] Oct, [facility] [address] [id number] [address] [place] [address], [place] [address] Sep, [facility] [address] [id number] [address] [place] [address], [place] [address] Sep, [facility] [address] [id number] [address] [place] [address], [place] [address] Sep, [facility] [address] [id number] [address] [place] [address], [place] [address] August, [facility] [address] [id number] [address] [place] [address], [place] [address] August, [facility] [address] [id number] [address] [place] [address], [place] [address] Jul, [facility] [address] [id number] [address] [place] [address], [place] [address] 24 Jul, 2011 [facility] [address] [id number] [address] [place] [address], [place] [address] Jul, [facility] [address] [id number] [address] [place] [address], [place] [address] Jul, [facility] [address] [id number] [address] [place] [address], [place] [address] Jun, [facility] [address] [id number] [address] [place] [address], [place] [address] May, [facility] [address] [id number] [address] [place] [address], [place] [address] 31 Apr, 2011 [facility] [address] [id number] [address] [place] [address], [place] [address] 31 Apr, 2011 [facility] [address] [id number] [address] [place] [address], [place] [address] 20 Apr, 2011 [facility] [address] [id number] [address] [place] [address], [place] [address] Apr, [facility] [address] [id number] [address] [place] [address], [place] [address] 17 Apr, 2011 [facility] [address] [id number] [address] [place] [address], [place] [address] Apr, [facility] [address] [id number] [address] [place] [address], [place] [address] Mar, [facility] [address] [id number] [address] [place] [address], [place] [address] Mar, [facility] [address] [id number] [address] [place] [address], [place] [address] Feb, [facility] [address] [id number] [address] [place] [address], [place] [address] Feb, [facility] [address] [id number] [address] [place] [address], [place] [address] Feb, [facility] [address] [id number] [address] [place] [address], [place] [address] Feb, [facility] [address] [id number] [address] [place] [address], [place] [address] Jan, [facility] [address] [id number] [address] [place] [address], [place] [address] 18 Jan, 2011 [facility] [address] [id number] [address] [place] [address], [place] [address] 18 Jan, 2011 [facility] [address] [id number] [address] [place] [address], [place] [address] Jan, [facility] [address] [id number] [address] [place] [address], [place] [address] 17 Nov, 2010 [facility] [address] [id number] [address] [place] [address], [place] [address] Mar, [facility] [address] [id number] [address] [place] [address], [place] [address] Mar, [facility] [address] [id number] [address] [place] [address], [place] [address] 30 Feb, 2010 [facility] [address] [id number] [address] [place] [address], [place] [address] 15 Feb, 2010 [facility] [address] [id number] [address] [place] [address], [place] [address] Jan, [facility] [address] [id number] [address] [place] [address], [place] [address] Jan, [facility] [address] [id number] [address] [place] [address], [place] [address] Sep, [facility] [address] [id number] [address] [place] [address], [place] [address] May, [facility] [address] [id number] [address] [place] [phone] Apr, [facility] [address] [id number] [address] [place] [address], [place] [address] Mar, [facility] [address] [id number] [address] [place] [id number] 15 Feb, 2009 [facility] [address] [id number] [address] [place] [address], [place] [address] Feb, [facility] [address] [id number] [address] [place] [address], [place] [address] Feb, [facility] [address] [id number] [address] [place] [address], [place] [address] 22 Jan, 2009 [facility] [address] [id number] [address] [place] [id number] 13 Jan, 2009 [facility] [address] [facility] [id number] [address] [place] [id number] 13 Jan, 2009 [facility] [address] [facility] [id number] [address] [place] [id number] 11 Jan, 2009 [facility] [address] [facility] [id number] [address] [place] [phone] August, IMMUNIZATIONS No Known Immunizations SOCIAL HISTORY [...] age 6 Hospitalization History surgery Hospitalization History [facility], tom webber treatment few times for BH
--- OUTSIDE RECORDS SUMMARY | 2019-09-29 10:44 | XMS REPORT ---
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 Active 71231243 Problem Open-angle glaucoma of both eyes, unspecified glaucoma stage, unspecified open-angle glaucoma type H40.10X0 Acti ve 42217214 Problem Adjustment disorder, unspecified type F43.20 Active 94563393 Problem Obstructive sleep apnea G47.33 Active 98033696 Problem Hypertensive retinopathy of both eyes H35.033 Active 0545061 Problem Type 2 diabetes mellitus with complication E11.8 Active 04587166 Problem Essential hypertension I10 Active 28300465 Problem Diabetes E11.9 Active 71007819 Problem Bipolar disorder, in partial remission, most rec ent episode manic F31.73 Active 84794695 Problem Intermittent explosive disorder in adult F63.81 Active 61370317 Problem Other diabetic neurological complication associated with type 2 diabetes mellitus E11.49 Active 956929239 Problem Depression F32.9 Active 74306139 Problem Neuropathy G62.9 Active 112744723 Problem Intermittent explosive disorder F63.81 Active 29252153 Problem Bipolar disorder, unspecified F31.9 Active 50453111 Problem Mild intellectual disability F70 A ctive 27128694 Problem Reactive airway disease, mild intermittent, uncomplicated J45.20 Active 666928127 Problem Gastroesophageal reflux disease without esophagitis K21.9 Active 844199277 ALLERGIES No Information ENCOUNTERS Encounter Location Date Diagnosis [facility] [address] [facility] [address] [id number] [address] 04 Jan, 2019 [facility] [address] [facility] [address] [id number] [address] [place] [address] Jan, [facility] [address] [id number] [address] [place] [address] Dec, [facility] [address] [id number] [address] [place] [address] Dec, [facility] [address] [id number] [address] [place] [address] Nov, [facility] [address] [id number] [address] [place] [address] Oct, [facility] [address] [place] [id number] [place] [address] Oct, Oral health maintenance stat us requiring routine preventive dental care K08.9 [facility] [address] [facility] [id number] [address] [place] [address] August, Intermittent explosive disor salvatore in adult F63.81 ; Bipolar disorder, unspecified F31.9 and Mild intellectual disability F70 [facility] [address] [id number] [address] [place] [address] [phone] August, Dental caries K02.9 [facility] [address] [facility] [id number] [address] [place] [address] Jul, Onychomycosis B35.1 ; Other diabetic neurological complication associated with type 2 diabetes mellitus E11.49 and Tinea pedis of both feet B35.3 [facility] [address] [id number] [address] [place] [address] [id number] Jul, Caries K02.9 [facility] [address] [id number] [address] [place] [address] Jul, Type 2 diabetes mellitus wit h complication E11.8 ; Tobacco abuse Z72.0 and Bipolar disorder, unspecified F31.9 [facility] [address] [id number] [address] [place] [address] Jun, [facility] [address] [place] [id number] [address] [place] [address] [phone] Jun, Dental examination Z01.20 an d Oral health maintenance status requiring routine preventive dental care K08.9 [place] [address] [place] [id number] [address] [place] [address] 11 May, 2018 Bilateral impacted cerumen H 61.23 [place] [address] [address] Apr, Bipolar disorder, unspecifie d F31.9 ; Intermittent explosive disorder in adult F63.81 ; Type 2 diabetes mellitus with complication E11.8 ; Tobacco abuse Z72.0 and Colon cancer screening Z12.11 [place] [address] [place] [id number] [address] [place] [address] Apr, Onychomycosis B35.1 and Othe r diabetic neurological complication associated with type 2 diabetes mellitus E11.49 [place] [address] [place] [id number] [address] [place] [address] Apr, Intermittent explosive disor salvatore in adult F63.81 ; Bipolar disorder, unspecified F31.9 and Mild intellectual disability F70 [place] [address] [address] Mar, Diabetes E11.9 [facility] [address] [place] [id number] [address] [place] [address] Jan, Encounter for immunization Z 23 [place] [address] [address] Jan, Tinea pedis of both feet B35 .3 ; Other diabetic neurological complication associated with type 2 diabetes mellitus E11.49 and Onychomycosis B35.1 [place] [address] [place] [id number] [address] [place] [address] Nov, Type 2 diabetes mellitus wit h complication E11.8 [place] [address] [place] [id number] [address] [place] [address] Nov, [place] [address] [facility] [id number] [address] [place] [address] Oct, Intermittent explosive disor salvatore in adult F63.81 ; Bipolar disorder, unspecified F31.9 and Mild intellectual disability F70 [facility] [address] [facility] [id number] [address] [place] [address] Oct, [facility] [address] [facility] [id number] [address] [place] [address] [phone] Oct, Dental examination Z01.20 [facility] [address] [facility] [id number] [address] [place] [address] Oct, Onychomycosis B35.1 and Othe r diabetic neurological complication associated with type 2 diabetes mellitus E11.49 [facility] [address] [facility] [id number] [address] [place] [address] Sep, Type 2 diabetes mellitus wit h complication E11.8 and Colon cancer screening Z12.11 [facility] [address] [facility] [id number] [address] [place] [address] 18 Sep, 2017 Type 2 diabetes mellitus wit h complication E11.8 ; Colon cancer screening Z12.11 and Neuropathy G62.9 [facility] [address] [facility] [id number] [address] [place] [address] August, Diabetes E11.9 [facility] [address] [place] [id number] [address] [place] [address] [id number] Jul, Dental examination Z01.20 [facility] [address] [facility] [id number] [address] [place] [address] 27 May, 2017 Mild intellectual disability F70 [facility] [address] [facility] [id number] [address] [place] [address] 07 May, 2017 Mild intellectual disability F70 ; High risk medication use Z79.899 ; Intermittent explosive disorder in adult F63.81 and Bipolar disorder, unspecified F31.9 [facility] [address] [facility] [id number] [address] [place] [address] 05 May, 2017 [facility] [address] [facility] [id number] [address] [place] [address] May, [facility] [address] [facility] [id number] [address] [place] [address] Apr, Type 2 diabetes mellitus wit h complication E11.8 ; Mild intellectual disability F70 ; Gastroesophageal reflux disease without esophagitis K21.9 ; Reactive airway disease, mild intermittent, uncomplicated J45.20 and Tobacco abuse Z72.0 [facility] [address] [facility] [id number] [address] [place] [address] Apr, High risk medication use Z79 .899 ; Mild intellectual disability F70 ; Intermittent explosive disorder in adult F63.81 and Bipolar disorder, unspecified F31.9 [facility] [address] [id number] [address] [place] [address] [id number] Mar, Dental examination Z01.20 [facility] [address] [id number] [address] [place] [address] [phone] Mar, Encounter for dental exam an d cleaning w/o abnormal findings Z01.20 [facility] [address] [id number] [address] [place] [address] 12 Jan, 2017 [facility] [address] [facility] [id number] [address] [place] [address] Jan, [facility] [address] [id number] [address] [place] [address] Jan, Mild intellectual disability F70 ; Bipolar disorder, unspecified F31.9 and Intermittent explosive disorder in adult F63.81 [facility] [address] [id number] [address] [place] [address] 02 Jan, 2017 Diabetes E11.9 [facility] [address] [id number] [address] [place] [address] [phone] Dec, Encounter for dental examina tion and cleaning without abnormal findings Z01.20 [facility] [address] [id number] [address] [place] [address] Dec, Bipolar disorder, unspecifie d F31.9 ; Intermittent explosive disorder in adult F63.81 and Mild intellectual disability F70 [facility] [address] [id number] [address] [place] [address] Nov, Diabetes E11.9 [facility] [address] [id number] [address] [place] [address] Nov, [facility] [address] [id number] [address] [place] [address] Nov, Diabetes E11.9 and Colon can cer screening Z12.11 [facility] [address] [facility] [id number] [id number] Sep, Dental examination Z01.20 [facility] [address] [id number] [address] [place] [address] [id number] Sep, Encounter for dental examina tion and cleaning without abnormal findings Z01.20 [facility] [address] [id number] [address] [place] [address] Sep, Bipolar disorder, unspecifie d F31.9 [facility] [address] [id number] [address] [place] [address] Sep, Bipolar disorder, unspecifie d F31.9 [facility] [address] [id number] [address] [place] [address] Jul, [facility] [address] [id number] [address] [place] [address] Jul, Type 2 diabetes mellitus wit h complication E11.8 [facility] [address] [id number] [id number] 15 Jun, 2016 Dental examination Z01.20 [facility] [address] [id number] [address] [place] [address] [phone] Jun, Encounter for dental examina tion and cleaning without abnormal findings Z01.20 [facility] [address] [id number] [address] [place] [address] 18 Apr, 2016 Sports physical Z02.5 [facility] [address] [id number] [address] [place] [address] 14 Mar, 2016 Bipolar disorder, in partial remission, most recent episode manic F31.73 and Intermittent explosive disorder in adult F63.81 [facility] [address] [id number] [address] [place] [address] 08 Mar, 2016 [facility] [address] [id number] [address] [place] [address] 06 Mar, 2016 Diabetes E11.9 [facility] [address] [id number] [address] [place] [address] [id number] Feb, Encounter for dental examina tion and cleaning without abnormal findings Z01.20 [facility] [address] [id number] [address] [place] [address] 22 Dec, 2015 Nocturnal hypoxemia G47.34 a nd Encounter for immunization Z23 [facility] [address] [id number] [address] [place] [address] 15 Dec, 2015 [facility] [address] [id number] [address] [place] [address] Dec, [facility] [address] [id number] [address] [place] [address] Dec, Bipolar disorder, unspecifie d F31.9 [facility] [address] [id number] [address] [place] [address] [id number] Oct, Encounter for dental examina tion and cleaning without abnormal findings Z01.20 [facility] [id number] [place] [address] [id number] Oct, Dental examination Z01.20 [facility] [address] [id number] [address] [place] [address] Oct, Diabetes E11.9 [facility] [address] [id number] [address] [place] [address] Oct, Diabetes E11.9 ; Reactive ai rway disease, mild intermittent, uncomplicated J45.20 and Tobacco abuse Z72.0 [place] [address] [address] Sep, Bipolar disorder, unspecifie d F31.9 and Depression F32.9 [place] [address] [address] Sep, [place] [address] [address] August, Tinea pedis of both feet B35 .3 and DM w/o complication type II, uncontrolled E11.65 [place] [address] [address] Jul, [place] [address] [address] Jul, [place] [address] [address] Jul, Obstructive sleep apnea G47. 33 [place] [address] [address] Jun, Diabetes E11.9 [place] [address] [address] Jun, [place] [address] [address] Jun, [place] [address] [address] Jun, Bipolar disorder, unspecifie d F31.9 and Mental retardation F79 [place] [address] [address] Apr, [place] [address] [address] Feb, Diabetes E11.9 ; Encounter f or immunization Z23 ; Cough R05 and Nicotine abuse Z72.0 [place] [address] [place] [address] Jan, Bipolar disorder, unspecifie d F31.9 and Diabetes mellitus without mention of complication, type II or unspecified type, uncontrolled 250.02 [place] [address] [address] Jan, [place] [address] [address] Dec, Reactive airway disease 493. 90 and Enuresis 788.30 [place] [address] [address] Dec, [place] [address] [address] Nov, [place] [address] [address] Nov, [place] [address] [address] Nov, Annual physical exam V70.0 ; Urinary incontinence 788.30 ; Diabetes 250.00 and Hypertension 401.9 [place] [address] [address] Oct, Diabetes mellitus without me ntion of complication, type II or unspecified type, uncontrolled 250.02 [place] [address] [address] Oct, Diabetes mellitus without me ntion of complication, type II or unspecified type, uncontrolled 250.02 [facility] [address] [address] Oct, Diabetes mellitus without me ntion of complication, type II or unspecified type, uncontrolled 250.02 [facility] [address] [address] Oct, [place] [address] [address] Oct, [facility] [address] [id number] [address] [place] [address] Oct, Bipolar disorder, unspecifie d 296.80 [facility] [address] [id number] [address] [place] [address] [id number] Sep, Dental examination V72.2 [facility] [address] [id number] [address] [place] [address] August, [facility] [address] [id number] [address] [place] [address] [id number] August, Dental examination V72.2 [facility] [address] [id number] [address] [place] [address] August, [facility] [address] [id number] [address] [place] [address] Jul, [facility] [address] [id number] [address] [place] [address] Jul, [facility] [address] [id number] [address] [place] [address] Jun, [facility] [address] [id number] [address] [place] [address] Jun, [facility] [address] [id number] [address] [place] [address] Jun, [facility] [address] [id number] [address] [place] [address] Jun, [facility] [address] [id number] [address] [place] [address] May, [facility] [address] [id number] [address] [place] [address] May, [facility] [address] [id number] [address] [place] [address] May, [facility] [address] [id number] [address] [place] [address] May, [facility] [address] [id number] [address] [place] [address], [place] [address] 16 May, 2014 [facility] [address] [id number] [address] [place] [address], [place] [address] May, 2014 [facility] [address] [id number] [address] [place] [address], [place] [address] 16 May, 2014 [facility] [address] [id number] [address] [place] [address], [place] [address] May, 2014 [facility] [address] [id number] [address] [place] [address], [place] [address] May, 2014 [facility] [address] [id number] [address] [place] [address], [place] [address] May, 2014 [facility] [address] [id number] [address] [place] [address], [place] [address] May, 2014 [facility] [address] [id number] [address] [place] [address], [place] [address] May, 2014 [facility] [address] [id number] [address] [place] [address], [place] [address] May, 2014 [facility] [address] [id number] [address] [place] [address], [place] [address] May, 2014 [facility] [address] [id number] [address] [place] [address], [place] [address] May, [facility] [address] [id number] [address] [place] [address], [place] [address] Apr, [facility] [address] [id number] [address] [place] [address], [place] [address] Apr, [facility] [address] [id number] [address] [place] [address], [place] [address] Apr, [facility] [address] [id number] [address] [place] [address], [place] [address] Apr, [facility] [address] [id number] [address] [place] [address], [place] [address] Apr, [facility] [address] [id number] [address] [place] [address], [place] [address] Apr, [facility] [address] [id number] [address] [place] [address], [place] [address] Apr, [facility] [address] [id number] [address] [place] [address], [place] [address] Apr, [facility] [address] [id number] [address] [place] [address], [place] [address] Apr, [facility] [address] [id number] [address] [place] [address], [place] [address] Apr, [facility] [address] [id number] [address] [place] [address], [place] [address] Apr, [facility] [address] [id number] [address] [place] [address], [place] [address] Apr, [facility] [address] [id number] [address] [place] [address], [place] [address] Mar, [facility] [address] [id number] [address] [place] [address], [place] [address] Mar, [facility] [address] [id number] [address] [place] [address], [place] [address] Mar, [facility] [address] [id number] [address] [place] [address], [place] [address] Mar, [facility] [address] [id number] [address] [place] [address], [place] [address] Mar, [facility] [address] [id number] [address] [place] [address], [place] [address] Mar, [facility] [address] [id number] [address] [place] [address], [place] [address] Feb, [facility] [address] [id number] [address] [place] [address], [place] [address] Feb, [facility] [address] [id number] [address] [place] [address], [place] [address] Feb, [facility] [address] [id number] [address] [place] [address], [place] [address] Feb, [facility] [address] [id number] [address] [place] [address], [place] [address] 14 Jan, 2014 [facility] [address] [id number] [address] [place] [address], [place] [address] 14 Jan, 2014 [facility] [address] [id number] [address] [place] [address], [place] [address] 14 Jan, 2014 [facility] [address] [id number] [address] [place] [address], [place] [address] Jan, [facility] [address] [id number] [address] [place] [address], [place] [address] Dec, [facility] [address] [id number] [address] [place] [address], [place] [address] 22 Dec, 2013 [facility] [address] [id number] [address] [place] [address], [place] [address] 15 Dec, 2013 [facility] [address] [id number] [address] [place] [address], [place] [address] Dec, [facility] [address] [id number] [address] [place] [address], [place] [address] Nov, [facility] [address] [id number] [address] [place] [address], [place] [address] Nov, [facility] [address] [id number] [address] [place] [address], [place] [address] Nov, [facility] [address] [id number] [address] [place] [address], [place] [address] Nov, [facility] [address] [id number] [address] [place] [address], [place] [address] Nov, [facility] [address] [id number] [address] [place] [address], [place] [address] Nov, [facility] [address] [id number] [address] [place] [address], [place] [address] Nov, [facility] [address] [id number] [address] [place] [address], [place] [address] Oct, [facility] [address] [id number] [address] [place] [address], [place] [address] Oct, [facility] [address] [id number] [address] [place] [address], [place] [address] Oct, [facility] [address] [id number] [address] [place] [address], [place] [address] Oct, [facility] [address] [id number] [address] [place] [address], [place] [address] Oct, [facility] [address] [id number] [address] [place] [address], [place] [address] Oct, [facility] [address] [id number] [address] [place] [address], [place] [address] Oct, [facility] [address] [id number] [address] [place] [address], [place] [address] Sep, [facility] [address] [id number] [address] [place] [address], [place] [address] Sep, [facility] [address] [id number] [address] [place] [address] [address] Sep, [facility] [address] [id number] [address] [place] [address], [place] [address] Sep, [facility] [address] [id number] [address] [place] [address], [place] [address] Sep, [facility] [address] [id number] [address] [place] [address], [place] [address] Jul, [facility] [address] [id number] [address] [place] [address], [place] [address] Jul, [facility] [address] [id number] [facility] [place] [address] Jul, [facility] [address] [id number] [facility] [place] [address] Jul, [facility] [address] [id number] [facility] [place] [address] Jul, [facility] [address] [id number] [address] [place] [address], [place] [address] Jul, [facility] [address] [id number] [facility] [place] [address] Jul, [facility] [address] [id number] [address] [place] [address], [place] [address] Jul, [facility] [address] [id number] [address] [place] [address], [place] [address] Jul, [facility] [address] [id number] [address] [place] [address], [place] [address] Jul, [facility] [address] [id number] [address] [place] [address], [place] [address] Jul, [facility] [address] [id number] [address] [place] [address], [place] [address] Jul, [facility] [address] [id number] [address] [place] [address], [place] [address] Jun, [facility] [address] [id number] [address] [place] [address], [place] [address] Jun, [facility] [address] [id number] [address] [place] [address], [place] [address] Jun, [facility] [address] [id number] [address] [place] [address], [place] [address] Jun, [facility] [address] [id number] [address] [place] [address], [place] [address] Jun, [facility] [address] [id number] [address] [place] [address], [place] [address] Jun, [facility] [address] [id number] [facility] [place] [address] Jun, [facility] [address] [id number] [address] [place] [address], [place] [address] Jun, [facility] [address] [id number] [address] [place] [address], [place] [address] May, [facility] [address] [id number] [address] [place] [address], [place] [address] May, [facility] [address] [id number] [address] [place] [address], [place] [address] May, [facility] [address] [id number] [address] [place] [address], [place] [address] May, [facility] [address] [id number] [address] [place] [address], [place] [address] May, [facility] [address] [id number] [address] [place] [address], [place] [address] May, [facility] [address] [id number] [address] [place] [address], [place] [address] May, [facility] [address] [id number] [address] [place] [address], [place] [address] May, [facility] [address] [id number] [address] [place] [address], [place] [address] Apr, [facility] [address] [id number] [address] [place] [address], [place] [address] Apr, [facility] [address] [id number] [address] [place] [address], [place] [address] Apr, [facility] [address] [id number] [address] [place] [address], [place] [address] Apr, [facility] [address] [id number] [address] [place] [address], [place] [address] Mar, [facility] [address] [id number] [address] [place] [address], [place] [address] Mar, [facility] [address] [id number] [address] [place] [address], [place] [address] Mar, [facility] [address] [id number] [address] [place] [address], [place] [address] Feb, [facility] [address] [id number] [address] [place] [address], [place] [address] Feb, [facility] [address] [id number] [address] [place] [address], [place] [address] Feb, [facility] [address] [id number] [address] [place] [address], [place] [address] Feb, [facility] [address] [id number] [address] [place] [address], [place] [address] Feb, [facility] [address] [id number] [address] [place] [address], [place] [address] Feb, [facility] [address] [id number] [address] [place] [address], [place] [address] Jan, [facility] [address] [id number] [address] [place] [address], [place] [address] Jan, [facility] [address] [id number] [address] [place] [address], [place] [address] Jan, [facility] [address] [id number] [address] [place] [address], [place] [address] Jan, [facility] [address] [id number] [address] [place] [address], [place] [address] Jan, [facility] [address] [id number] [address] [place] [address], [place] [address] Jan, [facility] [address] [id number] [address] [place] [address], [place] [address] Jan, [facility] [address] [id number] [address] [place] [address], [place] [address] Dec, [facility] [address] [id number] [facility] [place] [address] 16 Dec, 2012 [facility] [address] [id number] [address] [place] [address], [place] [address] Dec, [facility] [address] [id number] [address] [place] [address], [place] [address] 05 Dec, 2012 [facility] [address] [id number] [address] [place] [address], [place] [address] Nov, [facility] [address] [id number] [address] [place] [address], [place] [address] Nov, [facility] [address] [id number] [address] [place] [address], [place] [address] Nov, [facility] [address] [id number] [address] [place] [address], [place] [address] Nov, [facility] [address] [id number] [address] [place] [address], [place] [address] Nov, [facility] [address] [id number] [address] [place] [address], [place] [address] Nov, [facility] [address] [id number] [address] [place] [address], [place] [address] Nov, [facility] [address] [id number] [address] [place] [address], [place] [address] Oct, [facility] [address] [id number] [address] [place] [address], [place] [address] Oct, [facility] [address] [id number] [address] [place] [address], [place] [address] Oct, [facility] [address] [id number] [address] [place] [address], [place] [address] Oct, [facility] [address] [id number] [address] [place] [address], [place] [address] Oct, [facility] [address] [id number] [address] [place] [address], [place] [address] 16 Oct, 2012 [facility] [address] [id number] [address] [place] [address], [place] [address] Oct, [facility] [address] [id number] [address] [place] [address], [place] [address] Oct, [facility] [address] [id number] [address] [place] [address], [place] [address] Sep, [facility] [address] [id number] [place] [id number] August, [facility] [address] [id number] [address] [place] [address], [place] [address] August, [facility] [address] [id number] [address] [place] [address], [place] [address] Jul, [facility] [address] [id number] [address] [place] [address], [place] [address] Jul, [facility] [address] [id number] [address] [place] [address], [place] [address] Jul, [facility] [address] [id number] [address] [place] [address], [place] [address] Jul, [facility] [address] [id number] [address] [place] [address], [place] [address] 18 Jul, 2012 [facility] [address] [id number] [address] [place] [address], [place] [address] 17 Jul, 2012 [facility] [address] [id number] [address] [place] [address], [place] [address] 16 Jul, [address] [facility] [address] [id number] [address] [place] [address], [place] [address] Jun, [facility] [address] [id number] [address] [place] [address], [place] [address] 18 Jun, 2012 [facility] [address] [id number] [address] [place] [address], [place] [address] Jun, [facility] [address] [id number] [address] [place] [address], [place] [address] 04 Jun, 2012 [facility] [address] [id number] [address] [place] [address], [place] [address] 04 Jun, 2012 [facility] [address] [id number] [address] [place] [address], [place] [address] 19 May, 2012 [facility] [address] [id number] [address] [place] [address], [place] [address] 18 May, 2012 [facility] [address] [id number] [address] [place] [address], [place] [address] 04 May, 2012 [facility] [address] [id number] [address] [place] [address], [place] [address] 15 Apr, 2012 [facility] [address] [id number] [address] [place] [address], [place] [address] 14 Apr, 2012 [facility] [address] [id number] [address] [place] [address], [place] [address] 07 Apr, 2012 [facility] [address] [id number] [address] [place] [address], [place] [address] Mar, [facility] [address] [id number] [address] [place] [address], [place] [address] 31 Mar, 2012 [facility] [address] [id number] [address] [place] [address], [place] [address] Mar, [facility] [address] [id number] [address] [place] [address], [place] [address] Mar, [facility] [address] [id number] [address] [place] [address], [place] [address] 10 Mar, 2012 [facility] [address] [id number] [address] [place] [address], [place] [address] Mar, [facility] [address] [id number] [address] [place] [address], [place] [address] 02 Feb, 2012 [facility] [address] [id number] [address] [place] [address], [place] [address] Feb, [facility] [address] [id number] [address] [place] [address], [place] [address] Jan, [facility] [address] [id number] [address] [place] [address], [place] [address] Jan, [facility] [address] [id number] [address] [place] [address], [place] [address] Dec, [facility] [address] [id number] [address] [place] [address], [place] [address] Nov, [facility] [address] [id number] [address] [place] [address], [place] [address] Nov, [facility] [address] [id number] [address] [place] [address], [place] [address] Nov, [facility] [address] [id number] [address] [place] [address], [place] [address] Nov, [facility] [address] [id number] [address] [place] [address], [place] [address] Oct, [facility] [address] [id number] [address] [place] [address], [place] [address] Oct, [facility] [address] [id number] [address] [place] [address], [place] [address] Oct, [facility] [address] [id number] [address] [place] [address], [place] [address] Sep, [facility] [address] [id number] [address] [place] [address], [place] [address] Sep, [facility] [address] [id number] [address] [place] [address], [place] [address] Sep, [facility] [address] [id number] [address] [place] [address], [place] [address] August, [facility] [address] [id number] [address] [place] [address], [place] [address] August, [facility] [address] [id number] [address] [place] [address], [place] [address] 27 Jul, 2011 [facility] [address] [id number] [address] [place] [address], [place] [address] 24 Jul, 2011 [facility] [address] [id number] [address] [place] [address], [place] [address] 17 Jul, 2011 [facility] [address] [id number] [address] [place] [address], [place] [address] Jul, [facility] [address] [id number] [address] [place] [address], [place] [address] Jun, [facility] [address] [id number] [address] [place] [address], [place] [address] May, [facility] [address] [id number] [address] [place] [address], [place] [address] Apr, [facility] [address] [id number] [address] [place] [address], [place] [address] Apr, [facility] [address] [id number] [address] [place] [address], [place] [address] Apr, [facility] [address] [id number] [address] [place] [address], [place] [address] Apr, [facility] [address] [id number] [address] [place] [address], [place] [address] Apr, [facility] [address] [id number] [address] [place] [address], [place] [address] Apr, [facility] [address] [id number] [address] [place] [address], [place] [address] Mar, [facility] [address] [id number] [address] [place] [address], [place] [address] Mar, [facility] [address] [id number] [address] [place] [address], [place] [address] Feb, [facility] [address] [id number] [address] [place] [address], [place] [address] Feb, [facility] [address] [id number] [address] [place] [address], [place] [address] 17 Feb, 2011 [facility] [address] [id number] [address] [place] [address], [place] [address] Feb, [facility] [address] [id number] [address] [place] [address], [place] [address] Jan, [facility] [address] [id number] [address] [place] [address], [place] [address] Jan, [facility] [address] [id number] [address] [place] [address], [place] [address] Jan, [facility] [address] [id number] [address] [place] [address], [place] [address] Jan, [facility] [address] [id number] [address] [place] [address], [place] [address] Nov, [facility] [address] [id number] [address] [place] [address], [place] [address] Mar, [facility] [address] [id number] [address] [place] [address], [place] [address] Mar, [facility] [address] [id number] [address] [place] [address] Feb, [facility] [address] [id number] [address] [place] [address] Feb, [facility] [address] [id number] [address] [place] [address] Jan, [facility] [address] [id number] [address] [place] [address], [place] [address] Jan, [facility] [address] [id number] [address] [place] [address] Sep, [facility] [address] [id number] [address] [place] [address] 16 May, 2009 [facility] [address] [id number] [address] [place] [address] Apr, [facility] [address] [id number] [address] [place] [address] Mar, [facility] [address] [id number] [address] [place] [address] 15 Feb, 2009 [facility] [address] [id number] [address] [place] [address] Feb, [facility] [address] [id number] [address] [place] [address] Feb, [facility] [address] [id number] [address] [place] [address] 22 Jan, 2009 [facility] [address] [id number] [address] [place] [address] Jan, [facility] [address] [id number] [address] [place] [address] Jan, [facility] [address] [id number] [address] [place] [address] Jan, [facility] [address] [id number] [address] [place] [address] August, IMMUNIZATIONS No Known Immunizations SOCIAL HISTORY [...] age 6 Hospitalization History surgery Hospitalization History [facility], inpa tient treatment few times for BH
--- OUTSIDE RECORDS SUMMARY | 2019-09-29 10:44 | XMS REPORT ---
Author Author Cameron MERCEDES Organization 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 Active 72325646 Problem Open-angle glaucoma of both eyes, unspecified glaucoma stage, unspecified open-angle glaucoma type H40.10X0 Acti ve 94795751 Problem Adjustment disorder, unspecified type F43.20 Active 78351295 Problem Obstructive sleep apnea G47.33 Active 17132259 Problem Hypertensive retinopathy of both eyes H35.033 Active 4426385 Problem Type 2 diabetes mellitus with complication E11.8 Active 39275396 Problem Essential hypertension I10 Active 89570454 Problem Diabetes E11.9 Active 87772195 Problem Bipolar disorder, in partial remission, most rec ent episode manic F31.73 Active 29459731 Problem Intermittent explosive disorder in adult F63.81 Active 87811612 Problem Other diabetic neurological complication associated with type 2 diabetes mellitus E11.49 Active 315068901 Problem Depression F32.9 Active 01728686 Problem Neuropathy G62.9 Active 885781485 Problem Intermittent explosive disorder F63.81 Active 25909071 Problem Bipolar disorder, unspecified F31.9 Active 52514199 Problem Mild intellectual disability F70 A ctive 10771998 Problem Reactive airway disease, mild intermittent, uncomplicated J45.20 Active 169590838 Problem Gastroesophageal reflux disease without esophagitis K21.9 Active 141957311 ALLERGIES No Information ENCOUNTERS Encounter Location Date Diagnosis [facility] [address] [facility] [id number] [address] [place] [address] Apr, OUTREACH [facility] [address] [facility] [address] [id number] [address] Jan, [facility] [address] [facility] [id number] [address] [place] [phone] Jan, [facility] [address] [facility] [id number] [address] [place] [phone] Dec, [facility] [address] [facility] [id number] [address] [place] [phone] Dec, Intermittent explosive disor salvatore in adult F63.81 ; Bipolar disorder, unspecified F31.9 and Mild intellectual disability F70 [facility] [address] [facility] [id number] [address] [place] [phone] Nov, [facility] [address] [facility] [id number] [address] [place] [phone] Oct, OUTREACH [facility] [address] [place] [id number] [place] [address] Oct, Oral health maintenance stat us requiring routine preventive dental care K08.9 [facility] [address] [facility] [id number] [address] [place] [phone] August, Intermittent explosive disor salvatore in adult F63.81 ; Bipolar disorder, unspecified F31.9 and Mild intellectual disability F70 [facility] [address] [facility] [id number] [address] [place] [id number] August, Dental caries K02.9 [facility] [address] [facility] [id number] [address] [place] [address] Jul, Onychomycosis B35.1 ; Other diabetic neurological complication associated with type 2 diabetes mellitus E11.49 and Tinea pedis of both feet B35.3 [facility] [address] [id number] [address] [place] [phone] Jul, Caries K02.9 [facility] [address] [facility] [id number] [address] [place] [phone] Jul, Type 2 diabetes mellitus wit h complication E11.8 ; Tobacco abuse Z72.0 and Bipolar disorder, unspecified F31.9 [facility] [address] [place] [id number] [address] [place] [phone] Jun, [facility] [address] [facility] [id number] [address] [place] [phone] Jun, Dental examination Z01.20 an d Oral health maintenance status requiring routine preventive dental care K08.9 [facility] [address] [place] [id number] [address] [place] [phone] 11 May, 2018 Bilateral impacted cerumen H 61.23 [place] [address] [place] [id number] [address] [place] [address] Apr, Bipolar disorder, unspecifie d F31.9 ; Intermittent explosive disorder in adult F63.81 ; Type 2 diabetes mellitus with complication E11.8 ; Tobacco abuse Z72.0 and Colon cancer screening Z12.11 [place] [address] [place] [id number] [address] [place] [phone] Apr, Onychomycosis B35.1 and Othe r diabetic neurological complication associated with type 2 diabetes mellitus E11.49 [place] [address] [place] [id number] [address] [place] [address] Apr, Intermittent explosive disor salvatore in adult F63.81 ; Bipolar disorder, unspecified F31.9 and Mild intellectual disability F70 [facility] [id number] [place] [address] Mar, Diabetes E11.9 [facility] [address] [place] [id number] [address] [place] [phone] Jan, Encounter for immunization Z 23 [facility] [address] [place] [id number] [address] [place] [phone] Jan, Tinea pedis of both feet B35 .3 ; Other diabetic neurological complication associated with type 2 diabetes mellitus E11.[address] [facility] [address] [place] [id number] [address] [place] [phone] Nov, Type 2 diabetes mellitus wit h complication E11.8 [facility] [address] [facility] [id number] [address] [place] [phone] Nov, [facility] [address] [facility] [id number] [address] [place] [phone] Oct, Intermittent explosive disor salvatore in adult F63.81 ; Bipolar disorder, unspecified F31.9 and Mild intellectual disability F70 [place] [address] [place] [id number] [address] [place] [phone] Oct, [facility] [address] [facility] [id number] [address] [place] [address] [phone] Oct, Dental examination Z01.20 [place] [address] [place] [id number] [place] [phone] Oct, Onychomycosis B35.1 and Othe r diabetic neurological complication associated with type 2 diabetes mellitus E11.49 [place] [address] [place] [id number] [address] [place] [phone] Sep, Type 2 diabetes mellitus wit h complication E11.8 and Colon cancer screening Z12.11 [place] [address] [place] [id number] [address] [place] [phone] Sep, Type 2 diabetes mellitus wit h complication E11.8 ; Colon cancer screening Z12.11 and Neuropathy G62.9 [place] [address] [place] [id number] [address] [place] [phone] August, Diabetes E11.9 [facility] [address] [id number] [address] [place] [address] [id number] Jul, Dental examination Z01.20 [facility] [address] [facility] [id number] [address] [place] [phone] 27 May, 2017 Mild intellectual disability F70 [facility] [address] [place] [id number] [address] [place] [phone] May, Mild intellectual disability F70 ; High risk medication use Z79.899 ; Intermittent explosive disorder in adult F63.81 and Bipolar disorder, unspecified F31.9 [facility] [address] [id number] [address] [place] [phone] May, [facility] [address] [id number] [address] [place] [phone] May, [facility] [address] [id number] [address] [place] [phone] Apr, Type 2 diabetes mellitus wit h complication E11.8 ; Mild intellectual disability F70 ; Gastroesophageal reflux disease without esophagitis K21.9 ; Reactive airway disease, mild intermittent, uncomplicated J45.20 and Tobacco abuse Z72.0 [facility] [address] [id number] [address] [place] [phone] Apr, High risk medication use Z79 .899 ; Mild intellectual disability F70 ; Intermittent explosive disorder in adult F63.81 and Bipolar disorder, unspecified F31.9 [facility] [address] [id number] [place] [address] [id number] Mar, Encounter for dental exam an d cleaning w/o abnormal findings Z01.20 [facility] [address] [id number] [place] [id number] Mar, Dental examination Z01.20 [facility] [address] [facility] [id number] [address] [place] [phone] 12 Jan, 2017 [facility] [address] [id number] [address] [place] [phone] Jan, [facility] [address] [id number] [address] [place] [phone] Jan, Mild intellectual disability F70 ; Bipolar disorder, unspecified F31.9 and Intermittent explosive disorder in adult F63.81 [facility] [address] [id number] [address] [place] [phone] 02 Jan, 2017 Diabetes E11.9 [facility] [address] [id number] [address] [place] [address] [phone] Dec, Encounter for dental examina tion and cleaning without abnormal findings Z01.20 [facility] [address] [id number] [address] [place] [phone] 12 Dec, 2016 Bipolar disorder, unspecifie d F31.9 ; Intermittent explosive disorder in adult F63.81 and Mild intellectual disability F70 [facility] [address] [id number] [address] [place] [phone] Nov, Diabetes E11.9 [facility] [address] [id number] [address] [place] [phone] Nov, [facility] [address] [id number] [address] [place] [phone] Nov, Diabetes E11.9 and Colon can cer screening Z12.[address] [facility] [address] [id number] [id number] Sep, Dental examination Z01.20 [facility] [address] [id number] [address] [place] [address] [id number] Sep, Encounter for dental examina tion and cleaning without abnormal findings Z01.20 [facility] [address] [id number] [address] [place] [phone] Sep, Bipolar disorder, unspecifie d F31.9 [facility] [address] [id number] [address] [place] [phone] Sep, Bipolar disorder, unspecifie d F31.9 [facility] [address] [id number] [address] [place] [phone] Jul, [facility] [address] [id number] [address] [place] [phone] Jul, Type 2 diabetes mellitus wit h complication E11.8 [facility] [address] [id number] [address] [place] [address] [id number] Jun, Encounter for dental examina tion and cleaning without abnormal findings Z01.20 [facility] [address] [id number] [place] [phone] 15 Jun, [address] [facility] [address] [id number] [address] [place] [phone] 18 Apr, [address] [facility] [address] [id number] [address] [place] [phone] 14 Mar, 2016 Bipolar disorder, in partial remission, most recent episode manic F31.73 and Intermittent explosive disorder in adult F63.81 [facility] [address] [id number] [address] [place] [phone] 08 Mar, 2016 [facility] [address] [id number] [address] [place] [phone] 06 Mar, 2016 Diabetes E11.9 [facility] [address] [id number] [place] [address] [phone] Feb, Encounter for dental examina tion and cleaning without abnormal findings Z01.20 [facility] [address] [id number] [address] [place] [phone] 22 Dec, 2015 Nocturnal hypoxemia G47.34 a nd Encounter for immunization Z23 [facility] [address] [id number] [address] [place] [phone] [address], [address] [facility] [address] [id number] [address] [place] [phone] Dec, [facility] [address] [id number] [address] [place] [phone] Dec, Bipolar disorder, unspecifie d F31.9 [facility] [address] [id number] [address] [place] [address] [id number] Oct, Encounter for dental examina tion and cleaning without abnormal findings Z01.20 [facility] [address] [facility] [address] [id number] [place] [id number] Oct, Dental examination Z01.20 [facility] [address] [id number] [address] [place] [phone] Oct, Diabetes E11.9 [facility] [address] [facility] [id number] [address] [place] [phone] Oct, Diabetes E11.9 ; Reactive ai rway disease, mild intermittent, uncomplicated J45.20 and Tobacco abuse Z72.0 [facility] [address] [facility] [id number] [address] [place] [phone] Sep, Bipolar disorder, unspecifie d F31.[address] [facility] [address] [facility] [id number] [address] [place] [phone] Sep, [place] [address] [facility] [id number] [address] [place] [phone] August, Tinea pedis of both feet B35 .3 and DM w/o complication type II, uncontrolled E11.65 [facility] [address] [facility] [id number] [address] [place] [phone] Jul, [facility] [address] [facility] [id number] [address] [place] [phone] Jul, [facility] [address] [facility] [id number] [address] [place] [id number] Jul, Obstructive sleep apnea G47. 33 [facility] [address] [facility] [id number] [address] [place] [phone] Jun, Diabetes E11.9 [facility] [address] [facility] [id number] [address] [place] [phone] Jun, [facility] [address] [id number] [address] [place] [phone] Jun, [facility] [address] [facility] [id number] [address] [place] [phone] Jun, Bipolar disorder, unspecifie d F31.9 and Mental retardation F79 [facility] [address] [facility] [id number] [address] [place] [phone] Apr, [facility] [address] [id number] Feb, Diabetes E11.9 ; Encounter f or immunization Z23 ; Cough R05 and Nicotine abuse Z72.0 [place] [address] [address] Jan, Bipolar disorder, unspecifie d F31.9 and Diabetes mellitus without mention of complication, type II or unspecified type, uncontrolled 250.02 [place] [address] [address] Jan, [place] [address] [address] Dec, Reactive airway disease 493. 90 and Enuresis 788.30 [place] [address] [address] Dec, [place] [address] [address] Nov, [place] [address] [address] Nov, [place] [address] [address] Nov, Annual physical exam V70.0 ; Urinary incontinence 788.30 ; Diabetes 250.00 and Hypertension 401.9 [place] [address] [address] Oct, Diabetes mellitus without me ntion of complication, type II or unspecified type, uncontrolled 250.02 [place] [address] [address] Oct, Diabetes mellitus without me ntion of complication, type II or unspecified type, uncontrolled 250.02 [place] [address] [address] Oct, Diabetes mellitus without me ntion of complication, type II or unspecified type, uncontrolled 250.02 [place] [address] [place] [address] Oct, [facility] [address] [id number] [address] [place] [phone] Oct, [facility] [address] [id number] [address] [place] [phone] Oct, Bipolar disorder, unspecifie d 296.80 [facility] [address] [id number] [address] [place] [phone] Sep, Dental examination V72.2 [facility] [address] [id number] [address] [place] [phone] August, [facility] [address] [id number] [address] [place] [address] [id number] August, Dental examination V72.2 [facility] [address] [id number] [address] [place] [phone] August, [facility] [address] [id number] [address] [place] [phone] Jul, [facility] [address] [id number] [address] [place] [phone] Jul, [facility] [address] [id number] [address] [place] [phone] Jun, [facility] [address] [id number] [address] [place] [phone] Jun, [facility] [address] [id number] [address] [place] [phone] Jun, [facility] [address] [id number] [address] [place] [phone] Jun, [facility] [address] [id number] [address] [place] [phone] May, [facility] [address] [id number] [address] [place] [phone] May, [facility] [address] [id number] [address] [place] [address], [place] [address] 16 May, 2014 [facility] [place] [facility] [address] [id number] [address] [place] [address], [place] [address] 16 May, 2014 [facility] [place] [facility] [address] [id number] [address] [place] [address], [place] [address] 16 May, 2014 [facility] [place] [facility] [address] [id number] [address] [place] [address], [place] [address] 16 May, 2014 [facility] [place] [facility] [address] [id number] [address] [place] [address], [place] [address] May, 2014 [facility] [place] [facility] [address] [id number] [address] [place] [address], [place] [address] May, 2014 [facility] [place] [facility] [address] [id number] [address] [place] [address], [place] [address] 16 May, 2014 [facility] [place] [facility] [address] [id number] [address] [place] [address], [place] [address] 16 May, 2014 [facility] [place] [facility] [address] [id number] [address] [place] [address], [place] [address] May, 2014 [facility] [place] [facility] [address] [id number] [address] [place] [address], [place] [address] May, 2014 [facility] [place] [facility] [address] [id number] [address] [place] [phone] May, 2014 [facility] [place] [facility] [address] [id number] [address] [place] [phone] May, 2014 [facility] [place] [facility] [address] [id number] [address] [place] [address], [place] [address] May, [facility] [place] [facility] [address] [id number] [address] [place] [phone] Apr, [facility] [place] [facility] [address] [id number] [address] [place] [phone] Apr, [facility] [place] [facility] [address] [id number] [address] [place] [phone] Apr, [facility] [address] [id number] [address] [place] [address], [place] [address] Apr, [facility] [address] [id number] [address] [place] [address], [place] [address] Apr, [facility] [address] [id number] [address] [place] [address], [place] [address] Apr, [facility] [address] [id number] [address] [place] [address], [place] [address] Apr, [facility] [address] [id number] [address] [place] [address], [place] [address] Apr, [facility] [address] [id number] [address] [place] [address], [place] [address] Apr, [facility] [address] [id number] [address] [place] [address], [place] [address] Apr, [facility] [address] [id number] [address] [place] [address], [place] [address] Apr, [facility] [address] [id number] [address] [place] [address], [place] [address] Apr, [facility] [address] [id number] [address] [place] [address], [place] [address] Mar, [facility] [address] [id number] [address] [place] [address], [place] [address] Mar, [facility] [address] [id number] [address] [place] [address], [place] [address] Mar, [facility] [address] [id number] [address] [place] [address], [place] [address] Mar, [facility] [address] [id number] [address] [place] [address], [place] [address] Mar, [facility] [address] [id number] [address] [place] [address], [place] [address] Mar, [facility] [address] [id number] [address] [place] [address], [place] [address] 13 Feb, 2014 [facility] [address] [id number] [address] [place] [address], [place] [address] 13 Feb, 2014 [facility] [address] [id number] [address] [place] [address], [place] [address] 13 Feb, 2014 [facility] [address] [id number] [address] [place] [address], [place] [address] Feb, [facility] [address] [id number] [address] [place] [address], [place] [address] 14 Jan, 2014 [facility] [address] [id number] [address] [place] [address], [place] [address] 14 Jan, 2014 [facility] [address] [id number] [address] [place] [address], [place] [address] 14 Jan, 2014 [facility] [address] [id number] [address] [place] [address], [place] [address] 14 Jan, 2014 [facility] [address] [id number] [address] [place], [place] [address], [place] [address] 22 Dec, 2013 [facility] [address] [id number] [address] [place] [address], [place] [address] 22 Dec, 2013 [facility] [address] [id number] [address] [place] [address], [place] [address] 15 Dec, 2013 [facility] [address] [id number] [address] [place] [address], [place] [address] 15 Dec, 2013 [facility] [address] [id number] [address] [place] [address], [place] [address] Nov, [facility] [address] [id number] [address] [place] [address], [place] [address] Nov, [facility] [address] [id number] [address] [place] [address], [place] [address] 14 Nov, 2013 [facility] [address] [id number] [address] [place] [address], [place] [address] Nov, [facility] [address] [id number] [facility] [place] [address] Nov, [facility] [address] [id number] [facility] [place] [address] Nov, [facility] [address] [id number] [facility] [place] [address] Nov, [facility] [address] [id number] [address] [place] [address], [place] [address] Oct, [facility] [address] [id number] [facility] [place] [address] Oct, [facility] [address] [id number] [address] [place] [address], [place] [address] Oct, [facility] [address] [id number] [address] [place] [address], [place] [address] Oct, [facility] [address] [id number] [address] [place] [address], [place] [address] Oct, [facility] [address] [id number] [address] [place] [address], [place] [address] Oct, [facility] [address] [id number] [address] [place] [address], [place] [address] Oct, [facility] [address] [id number] [address] [place] [address], [place] [address] Sep, [facility] [address] [id number] [address] [place] [address], [place] [address] Sep, [facility] [address] [id number] [address] [place] [address], [place] [address] Sep, [facility] [address] [id number] [address] [place] [address], [place] [address] Sep, [facility] [address] [id number] [address] [place] [address], [place] [address] Sep, [facility] [address] [id number] [facility] [place] [address] Jul, [facility] [address] [id number] [address] [place] [address], [place] [address] Jul, [facility] [address] [id number] [address] [place] [address], [place] [address] Jul, [facility] [address] [id number] [address] [place] [address], [place] [address] Jul, [facility] [address] [id number] [address] [place] [address], [place] [address] Jul, [facility] [address] [id number] [address] [place] [address], [place] [address] Jul, [facility] [address] [id number] [address] [place] [address], [place] [address] Jul, [facility] [address] [id number] [address] [place] [address], [place] [address] Jul, [facility] [address] [id number] [address] [place] [address], [place] [address] Jul, [facility] [address] [id number] [address] [place] [address], [place] [address] Jul, [facility] [address] [id number] [address] [place] [address], [place] [address] Jul, [facility] [address] [id number] [address] [place] [address], [place] [address] Jul, [facility] [address] [id number] [address] [place] [address], [place] [address] Jun, [facility] [address] [id number] [address] [place] [address], [place] [address] Jun, [facility] [address] [id number] [address] [place] [address], [place] [address] Jun, [facility] [address] [id number] [address] [place] [address], [place] [address] Jun, [facility] [address] [id number] [facility] [place] [address] Jun, [facility] [address] [id number] [facility] [place] [address] Jun, [facility] [address] [id number] [facility] [place] [address] Jun, [facility] [address] [id number] [address] [place] [address], [place] [address] Jun, [facility] [address] [id number] [address] [place] [address], [place] [address] May, [facility] [address] [id number] [address] [place] [address], [place] [address] May, [facility] [address] [id number] [address] [place] [address], [place] [address] May, [facility] [address] [id number] [address] [place] [address], [place] [address] May, [facility] [address] [id number] [address] [place] [address], [place] [address] May, [facility] [address] [id number] [address] [place] [address], [place] [address] May, [facility] [address] [id number] [address] [place] [address], [place] [address] May, [facility] [address] [id number] [address] [place] [address], [place] [address] May, [facility] [address] [id number] [address] [place] [address], [place] [address] Apr, [facility] [address] [id number] [address] [place] [address], [place] [address] Apr, [facility] [address] [id number] [address] [place] [address], [place] [address] Apr, [facility] [address] [id number] [address] [place] [address], [place] [address] Apr, [facility] [address] [id number] [address] [place] [address], [place] [address] Mar, [facility] [address] [id number] [address] [place] [address], [place] [address] Mar, [facility] [address] [id number] [address] [place] [address], [place] [address] Mar, [facility] [address] [id number] [address] [place] [address], [place] [address] Feb, [facility] [address] [id number] [address] [place] [address], [place] [address] Feb, [facility] [address] [id number] [address] [place] [address], [place] [address] Feb, [facility] [address] [id number] [address] [place] [address], [place] [address] Feb, [facility] [address] [id number] [address] [place] [address], [place] [address] Feb, [facility] [address] [id number] [address] [place] [address], [place] [address] Feb, [facility] [address] [id number] [address] [place] [address], [place] [address] Jan, [facility] [address] [id number] [address] [place] [address], [place] [address] Jan, [facility] [address] [id number] [address] [place] [address], [place] [address] Jan, [facility] [address] [id number] [address] [place] [address], [place] [address] Jan, [facility] [address] [id number] [address] [place] [address], [place] [address] Jan, [facility] [address] [id number] [address] [place] [address], [place] [address] Jan, [facility] [address] [id number] [address] [place] [address], [place] [address] Jan, [facility] [address] [id number] [address] [place] [address], [place] [address] Dec, [facility] [address] [id number] [address] [place] [address], [place] [address] 16 Dec, 2012 [facility] [address] [id number] [address] [place] [address], [place] [address] Dec, [facility] [address] [id number] [address] [place] [address], [place] [address] 05 Dec, 2012 [facility] [address] [id number] [address] [place] [address], [place] [address] Nov, [facility] [address] [id number] [address] [place] [address], [place] [address] Nov, [facility] [address] [id number] [address] [place] [address], [place] [address] Nov, [facility] [address] [id number] [address] [place] [address], [place] [address] Nov, [facility] [address] [id number] [address] [place] [address], [place] [address] Nov, [facility] [address] [id number] [address] [place] [address], [place] [address] Nov, [facility] [address] [id number] [address] [place] [address], [place] [address] Nov, [facility] [address] [id number] [address] [place] [address], [place] [address] Oct, [facility] [address] [id number] [address] [place] [address], [place] [address] Oct, [facility] [address] [id number] [address] [place] [address], [place] [address] Oct, [facility] [address] [id number] [address] [place] [address], [place] [address] Oct, [facility] [address] [id number] [facility] [place] [address] Oct, [facility] [address] [id number] [address] [place] [address], [place] [address] Oct, [facility] [address] [id number] [address] [place] [address], [place] [address] Oct, [facility] [address] [id number] [address] [place] [address], [place] [address] Oct, [facility] [address] [id number] [address] [place] [address], [place] [address] Sep, Suleiman PEREZ [address] [id number] [id number] August, [facility] [address] [id number] [address] [place] [address], [place] [address] August, [facility] [address] [id number] [address] [place] [address], [place] [address] Jul, [facility] [address] [id number] [address] [place] [address], [place] [address] Jul, [facility] [address] [id number] [address] [place] [address], [place] [address] Jul, [facility] [address] [id number] [address] [place] [address], [place] [address] Jul, [facility] [address] [id number] [address] [place] [address], [place] [address] 18 Jul, 2012 [facility] [address] [id number] [address] [place] [address], [place] [address] 17 Jul, 2012 [facility] [address] [id number] [address] [place] [address], [place] [address] 16 Jul, 2012 [facility] [address] [id number] [address] [place] [address], [place] [address] Jun, [facility] [address] [id number] [address] [place] [address], [place] [address] 18 Jun, 2012 [facility] [address] [id number] [address] [place] [address], [place] [address] 11 Jun, 2012 [facility] [address] [id number] [address] [place] [address], [place] [address] 04 Jun, 2012 [facility] [address] [id number] [address] [place] [address], [place] [address] 04 Jun, 2012 [facility] [address] [id number] [address] [place] [address], [place] [address] 19 May, 2012 [facility] [address] [id number] [address] [place] [address], [place] [address] 18 May, 2012 [facility] [address] [id number] [address] [place] [address], [place] [address] 04 May, 2012 [facility] [address] [id number] [address] [place] [address], [place] [address] 15 Apr, 2012 [facility] [address] [id number] [address] [place] [address], [place] [address] 14 Apr, 2012 [facility] [address] [id number] [address] [place] [address], [place] [address] 07 Apr, 2012 [facility] [address] [id number] [address] [place] [address], [place] [address] 31 Mar, 2012 [facility] [address] [id number] [address] [place] [address], [place] [address] 31 Mar, 2012 [facility] [address] [id number] [address] [place] [address], [place] [address] 13 Mar, 2012 [facility] [address] [id number] [address] [place] [address], [place] [address] 13 Mar, 2012 [facility] [address] [id number] [address] [place] [address], [place] [address] 10 Mar, 2012 [facility] [address] [id number] [address] [place] [address], [place] [address] Mar, [facility] [address] [id number] [address] [place] [address], [place] [address] Feb, [facility] [address] [id number] [address] [place] [address], [place] [address] Feb, [facility] [address] [id number] [address] [place] [address], [place] [address] Jan, [facility] [address] [id number] [address] [place] [address], [place] [address] Jan, [facility] [address] [id number] [address] [place] [address], [place] [address] Dec, [facility] [address] [id number] [address] [place] [address], [place] [address] Nov, [facility] [address] [id number] [address] [place] [address], [place] [address] Nov, [facility] [address] [id number] [address] [place] [address], [place] [address] Nov, [facility] [address] [id number] [address] [place] [address], [place] [address] Nov, [facility] [address] [id number] [address] [place] [address], [place] [address] Oct, [facility] [address] [id number] [address] [place] [address], [place] [address] Oct, [facility] [address] [id number] [address] [place] [address] Oct, [facility] [address] [id number] [address] [place] [address], [place] [address] Sep, [facility] [address] [id number] [address] [place] [address], [place] [address] Sep, [facility] [address] [id number] [address] [place] [address], [place] [address] Sep, [facility] [address] [id number] [address] [place] [address], [place] [address] August, [facility] [address] [id number] [address] [place] [address], [place] [address] August, [facility] [address] [id number] [address] [place] [address], [place] [address] Jul, [facility] [address] [id number] [address] [place] [address], [place] [address] Jul, [facility] [address] [id number] [address] [place] [address], [place] [address] Jul, [facility] [address] [id number] [address] [place] [address], [place] [address] Jul, [facility] [address] [id number] [address] [place] [address], [place] [address] Jun, [facility] [address] [id number] [address] [place] [address], [place] [address] May, [facility] [address] [id number] [address] [place] [address], [place] [address] Apr, [facility] [address] [id number] [address] [place] [address], [place] [address] Apr, [facility] [address] [id number] [address] [place] [address], [place] [address] Apr, [facility] [address] [id number] [address] [place] [address], [place] [address] Apr, [facility] [address] [id number] [address] [place] [address], [place] [address] Apr, [facility] [address] [id number] [address] [place] [address], [place] [address] Apr, [facility] [address] [id number] [address] [place] [address], [place] [address] Mar, [facility] [address] [id number] [address] [place] [address], [place] [address] Mar, [facility] [address] [id number] [address] [place] [address], [place] [address] Feb, [facility] [address] [id number] [address] [place] [address], [place] [address] Feb, [facility] [address] [id number] [address] [place] [address], [place] [address] Feb, [facility] [address] [id number] [address] [place] [address], [place] [address] Feb, [facility] [address] [id number] [address] [place] [address], [place] [address] Jan, [facility] [address] [id number] [address] [place] [address], [place] [address] Jan, [facility] [address] [id number] [address] [place] [address], [place] [address] Jan, [facility] [address] [id number] [address] [place] [address] Jan, [facility] [address] [id number] [address] [place] [address], [place] [address] Nov, [facility] [address] [id number] [address] [place] [id number] Mar, [facility] [address] [id number] [address] [place] [id number] Mar, [facility] [address] [id number] [address] [place] [id number] 30 Feb, 2010 [facility] [address] [id number] [address] [place] [address], [place] [phone] 15 Feb, 2010 [facility] [address] [id number] [address] [place] [phone] Jan, [facility] [address] [id number] [address] [place] [phone] Jan, [facility] [address] [id number] [address] [place] [id number] [address], [address] [facility] [address] [id number] [address] [place] [phone] May, [facility] [address] [id number] [address] [place] [phone] Apr, [facility] [address] [id number] [address] [place] [phone] Mar, [facility] [address] [id number] [address] [place] [phone] Feb, [facility] [address] [id number] [address] [place] [phone] Feb, [facility] [address] [id number] [address] [place] [phone] Feb, [facility] [address] [id number] [address] [place] [phone] Jan, [facility] [address] [id number] [address] [place] [phone] Jan, [facility] [address] [id number] [address] [place] [phone] Jan, [facility] [address] [id number] [address] [place] [phone] Jan, [facility] [address] [id number] [address] [place] [phone] August, IMMUNIZATIONS No Known Immunizations SOCIAL HISTORY [...] age 6 Hospitalization History surgery Hospitalization History [facility], inmo tie treatment few times for BH
--- OUTSIDE RECORDS SUMMARY | 2019-09-29 10:44 | XMS REPORT ---
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 Active 85387860 Problem Open-angle glaucoma of both eyes, unspecified glaucoma stage, unspecified open-angle glaucoma type H40.10X0 Acti ve 29137230 Problem Adjustment disorder, unspecified type F43.20 Active 82531270 Problem Obstructive sleep apnea G47.33 Active 72737141 Problem Hypertensive retinopathy of both eyes H35.033 Active 1898674 Problem Type 2 diabetes mellitus with complication E11.8 Active 31056288 Problem Essential hypertension I10 Active 55793651 Problem Diabetes E11.9 Active 82102678 Problem Bipolar disorder, in partial remission, most rec ent episode manic F31.73 Active 36719244 Problem Intermittent explosive disorder in adult F63.81 Active 72804756 Problem Other diabetic neurological complication associated with type 2 diabetes mellitus E11.49 Active 475442027 Problem Depression F32.9 Active 48175538 Problem Neuropathy G62.9 Active 597049524 Problem Intermittent explosive disorder F63.81 Active 14966360 Problem Bipolar disorder, unspecified F31.9 Active 86876887 Problem Mild intellectual disability F70 A ctive 58788564 Problem Reactive airway disease, mild intermittent, uncomplicated J45.20 Active 172276326 Problem Gastroesophageal reflux disease without esophagitis K21.9 Active 250965863 ALLERGIES No Information ENCOUNTERS Encounter Location Date Diagnosis [facility] [address] [facility] [id number] [address] [place] [address] Apr, OUTREACH [facility] [address] [facility] [address] [id number] [address] Jan, [facility] [address] [id number] [address] [place] [address] Jan, [facility] [address] [id number] [address] [place] [address] Dec, [facility] [address] [id number] [address] [place] [address] Dec, [facility] [address] [id number] [address] [place] [address] Dec, Dysuria R30.0 [facility] [address] [id number] [address] [place] [address] Dec, Intermittent explosive disor salvatore in adult F63.81 ; Bipolar disorder, unspecified F31.9 and Mild intellectual disability F70 [facility] [address] [id number] [address] [place] [address] Nov, [facility] [address] [id number] [address] [place] [address] Oct, [facility] [address] [facility] [id number] [place] [address] Oct, Oral health maintenance stat requiring routine preventive dental care K08.9 [facility] [address] [facility] [id number] [address] [place] [address] August, Intermittent explosive disor salvatore in adult F63.81 ; Bipolar disorder, unspecified F31.9 and Mild intellectual disability F70 [facility] [address] [id number] [address] [place] [address] [id number] August, Dental caries K02.9 [facility] [address] [id number] [address] [place] [address] Jul, Onychomycosis B35.1 ; Other diabetic neurological complication associated with type 2 diabetes mellitus E11.49 and Tinea pedis of both feet B35.3 [facility] [address] [place] [id number] [address] [place] [address] [id number] 18 Jul, 2018 Caries K02.9 [facility] [address] [place] [id number] [address] [place] [address] 15 Jul, 2018 Type 2 diabetes mellitus wit h complication E11.8 ; Tobacco abuse Z72.0 and Bipolar disorder, unspecified F31.9 [facility] [address] [place] [id number] [address] [place] [address] Jun, [facility] [address] [place] [id number] [address] [place] [address] [id number] Jun, Dental examination Z01.20 an d Oral health maintenance status requiring routine preventive dental care K08.9 [place] [address] [address] May, Bilateral impacted cerumen H 61.23 [facility] [address] [address] Apr, Bipolar disorder, unspecifie d F31.9 ; Intermittent explosive disorder in adult F63.81 ; Type 2 diabetes mellitus with complication E11.8 ; Tobacco abuse Z72.0 and Colon cancer screening Z12.11 [place] [address] [place] [id number] [address] [place] [address] Apr, Onychomycosis B35.1 and Othe r diabetic neurological complication associated with type 2 diabetes mellitus E11.49 [facility] [address] [place] [id number] [address] [place] [address] Apr, Intermittent explosive disor salvatore in adult F63.81 ; Bipolar disorder, unspecified F31.9 and Mild intellectual disability F70 [facility] [address] [address] 03 Mar, 2018 Diabetes E11.9 [facility] [address] [place] [id number] [address] [place] [address] Jan, Encounter for immunization Z 23 [facility] [address] [address] Jan, Tinea pedis of both feet B35 .3 ; Other diabetic neurological complication associated with type 2 diabetes mellitus E11.49 and Onychomycosis B35.1 [place] [address] [facility] [id number] [address] [place] [address] Nov, Type 2 diabetes mellitus wit h complication E11.8 [place] [address] [facility] [id number] [address] [place] [address] Nov, [facility] [address] [facility] [id number] [address] [place] [address] Oct, Intermittent explosive disor salvatore in adult F63.81 ; Bipolar disorder, unspecified F31.9 and Mild intellectual disability F70 [place] [address] [facility] [id number] [address] [place] [address] Oct, [facility] [address] [place] [address] [id number] Oct, Dental examination Z01.20 [place] [address] [facility] [id number] [address] [place] [address] Oct, Onychomycosis B35.1 and Othe r diabetic neurological complication associated with type 2 diabetes mellitus E11.49 [place] [address] [facility] [id number] [address] [place] [address] Sep, Type 2 diabetes mellitus wit h complication E11.8 and Colon cancer screening Z12.11 [place] [address] [facility] [id number] [address] [place] [address] Sep, Type 2 diabetes mellitus wit h complication E11.8 ; Colon cancer screening Z12.11 and Neuropathy G62.9 [facility] [address] [facility] [id number] [address] [place] [address] August, Diabetes E11.9 [facility] [address] [id number] [address] [place] [address] [id number] Jul, Dental examination Z01.20 [facility] [address] [id number] [address] [place] [address] May, Mild intellectual disability F70 [facility] [address] [facility] [id number] [address] [place] [address] May, Mild intellectual disability F70 ; High risk medication use Z79.899 ; Intermittent explosive disorder in adult F63.81 and Bipolar disorder, unspecified F31.9 [facility] [address] [place] [id number] [address] [place] [address] May, [facility] [address] [facility] [id number] [address] [place] [address] May, [place] [address] [place] [id number] [place] [address] Apr, Type 2 diabetes mellitus wit h complication E11.8 ; Mild intellectual disability F70 ; Gastroesophageal reflux disease without esophagitis K21.9 ; Reactive airway disease, mild intermittent, uncomplicated J45.20 and Tobacco abuse Z72.0 [facility] [address] [place] [id number] [address] [place] [address] Apr, High risk medication use Z79 .899 ; Mild intellectual disability F70 ; Intermittent explosive disorder in adult F63.81 and Bipolar disorder, unspecified F31.9 [facility] [id number] [place] [address] [id number] Mar, Encounter for dental exam an d cleaning w/o abnormal findings Z01.20 [facility] [id number] [place] [address] [id number] Mar, Dental examination Z01.20 [facility] [address] [facility] [id number] [address] [place] [address] Jan, [facility] [address] [facility] [id number] [address] [place] [address] Jan, [facility] [address] [place] [id number] [address] [place] [address] Jan, Mild intellectual disability F70 ; Bipolar disorder, unspecified F31.9 and Intermittent explosive disorder in adult F63.81 [facility] [address] [id number] [address] [place] [address] 02 Jan, 2017 Diabetes E11.9 [facility] [address] [id number] [address] [place] [address] [id number] 13 Dec, 2016 Encounter for dental examina tion and cleaning without abnormal findings Z01.20 [facility] [address] [id number] [address] [place] [address] 12 Dec, 2016 Bipolar disorder, unspecifie d F31.9 ; Intermittent explosive disorder in adult F63.81 and Mild intellectual disability F70 [facility] [address] [id number] [address] [place] [address] Nov, Diabetes E11.9 [facility] [address] [id number] [address] [place] [address] Nov, [facility] [address] [facility] [id number] [address] [place] [address] Nov, Diabetes E11.9 and Colon can cer screening Z12.[address] [id number] [place] [address] [id number] Sep, Dental examination Z01.20 [facility] [address] [id number] [address] [place] [address] [id number] 21 Sep, 2016 Encounter for dental examina tion and cleaning without abnormal findings Z01.20 [facility] [address] [id number] [address] [place] [address] Sep, Bipolar disorder, unspecifie d F31.9 [facility] [address] [id number] [address] [place] [address] Sep, Bipolar disorder, unspecifie d F31.9 [facility] [address] [id number] [address] [place] [address] Jul, [facility] [address] [id number] [address] [place] [address] Jul, Type 2 diabetes mellitus wit h complication E11.8 [facility] [address] [id number] [address] [place] [address] [id number] 15 Jun, 2016 Encounter for dental examina tion and cleaning without abnormal findings Z01.20 [facility] [address] [id number] [place] [id number] 15 Jun, 2016 Dental examination Z01.20 [facility] [address] [id number] [address] [place] [id number] 18 Apr, 2016 Sports physical Z02.5 [facility] [address] [id number] [address] [place] [address] 14 Mar, 2016 Bipolar disorder, in partial remission, most recent episode manic F31.73 and Intermittent explosive disorder in adult F63.81 [facility] [address] [id number] [address] [place] [phone] 08 Mar, 2016 [facility] [address] [id number] [address] [place] [id number] 06 Mar, 2016 Diabetes E11.9 [facility] [address] [id number] [address] [place] [address] [id number] Feb, Encounter for dental examina tion and cleaning without abnormal findings Z01.20 [facility] [address] [id number] [address] [place] [address] 22 Dec, 2015 Nocturnal hypoxemia G47.34 a nd Encounter for immunization Z23 [facility] [address] [id number] [address] [place] [phone] 15 Dec, 2015 [facility] [address] [id number] [address] [place] [address] Dec, [facility] [address] [id number] [address] [place] [address] Dec, Bipolar disorder, unspecifie d F31.9 [facility] [address] [id number] [address] [place] [address] [id number] Oct, Encounter for dental examina tion and cleaning without abnormal findings Z01.20 [facility] [id number] [place] [address] [id number] 13 Oct, 2016 Dental examination Z01.20 [facility] [address] [facility] [id number] [address] [place] [id number] 07 Oct, 2015 Diabetes E11.9 [facility] [address] [facility] [id number] [address] [place] [address] 05 Oct, 2015 Diabetes E11.9 ; Reactive ai rway disease, mild intermittent, uncomplicated J45.20 and Tobacco abuse Z72.0 [facility] [address] [facility] [id number] [address] [place] [phone] 06 Sep, 2015 Bipolar disorder, unspecifie d F31.9 and Depression F32.9 [place] [address] [facility] [id number] [address] [place] [address] Sep, [facility] [address] [facility] [id number] [address] [place] [address] August, Tinea pedis of both feet B35 .3 and DM w/o complication type II, uncontrolled E11.65 [facility] [address] [facility] [id number] [address] [place] [address] Jul, [facility] [address] [facility] [id number] [address] [place] [address] Jul, [facility] [address] [facility] [id number] [address] [place] [phone] 08 Jul, 2015 Obstructive sleep apnea G47. 33 [facility] [address] [facility] [id number] [address] [place] [address] Jun, Diabetes E11.9 [facility] [address] [facility] [id number] [address] [place] [address] Jun, [facility] [address] [facility] [id number] [address] [place] [address] 07 Jun, 2015 [facility] [address] [facility] [id number] [address] [place] [address] Jun, Bipolar disorder, unspecifie d F31.9 and Mental retardation F79 [place] [address] [address] Apr, [place] [address] [address] Feb, Diabetes E11.9 ; Encounter f or immunization Z23 ; Cough R05 and Nicotine abuse Z72.0 [place] [address] [address] Jan, Bipolar disorder, unspecifie d F31.9 and Diabetes mellitus without mention of complication, type II or unspecified type, uncontrolled 250.02 [place] [address] [address] Jan, [place] [address] [address] Dec, Reactive airway disease 493. 90 and Enuresis 788.30 [place] [address] [address] Dec, [place] [address] [address] Nov, [place] [address] [address] Nov, [place] [address] [address] Nov, Annual physical exam V70.0 ; Urinary incontinence 788.30 ; Diabetes 250.00 and Hypertension 401.9 [place] [address] [address] Oct, Diabetes mellitus without me ntion of complication, type II or unspecified type, uncontrolled 250.02 [place] [address] [address] Oct, Diabetes mellitus without me ntion of complication, type II or unspecified type, uncontrolled 250.02 [facility] [address] [id number] [address] [place] [address] Oct, Diabetes mellitus without me ntion of complication, type II or unspecified type, uncontrolled 250.02 [facility] [address] [id number] [address] [place] [address] 08 Oct, 2014 [facility] [address] [id number] [address] [place] [address] Oct, [facility] [address] [id number] [address] [place] [address] Oct, Bipolar disorder, unspecifie d 296.80 [facility] [address] [id number] [address] [place] [address] [id number] Sep, Dental examination V72.2 [facility] [address] [id number] [address] [place] [address] August, [facility] [address] [id number] [address] [place] [address] [id number] August, Dental examination V72.2 [facility] [address] [id number] [address] [place] [address] August, [facility] [address] [id number] [address] [place] [address] Jul, [facility] [address] [id number] [address] [place] [address] Jul, [facility] [address] [id number] [address] [place] [address] Jun, [facility] [address] [id number] [address] [place] [address] Jun, [facility] [address] [id number] [address] [place] [address] Jun, [facility] [address] [id number] [address] [place] [address] Jun, [facility] [address] [id number] [address] [place] [address], [place] [address] 23 May, 2014 [facility] [address] [id number] [address] [place] [address], [place] [address] 23 May, 2014 [facility] [address] [id number] [address] [place] [address], [place] [address] 16 May, 2014 [facility] [address] [id number] [address] [place] [address], [place] [address] 16 May, 2014 [facility] [address] [id number] [address] [place] [address], [place] [address] 16 May, 2014 [facility] [address] [id number] [address] [place] [address], [place] [address] 16 May, 2014 [facility] [address] [id number] [address] [place] [address], [place] [address] 16 May, 2014 [facility] [address] [id number] [address] [place] [address], [place] [address] 16 May, 2014 [facility] [address] [id number] [address] [place] [address], [place] [address] 16 May, 2014 [facility] [address] [id number] [address] [place] [address], [place] [address] 16 May, 2014 [facility] [address] [id number] [address] [place] [address], [place] [address] 16 May, 2014 [facility] [address] [id number] [address] [place] [address] 16 May, 2014 [facility] [address] [id number] [address] [place] [address], [place] [address] 16 May, 2014 [facility] [address] [id number] [address] [place] [address], [place] [address] 16 May, 2014 [facility] [address] [id number] [address] [place] [address], [place] [address] 16 May, 2014 [facility] [address] [id number] [address] [place] [address], [place] [address] Apr, [facility] [address] [id number] [address] [place] [address], [place] [address] Apr, [facility] [address] [id number] [address] [place] [address], [place] [address] Apr, [facility] [address] [id number] [address] [place] [address], [place] [address] Apr, [facility] [address] [id number] [address] [place] [address], [place] [address] Apr, [facility] [address] [id number] [address] [place] [address], [place] [address] Apr, [facility] [address] [id number] [address] [place] [address], [place] [address] Apr, [facility] [address] [id number] [address] [place] [address], [place] [address] Apr, [facility] [address] [id number] [address] [place] [address], [place] [address] Apr, [facility] [address] [id number] [address] [place] [address], [place] [address] Apr, [facility] [address] [id number] [address] [place] [address], [place] [address] Apr, [facility] [address] [id number] [address] [place] [address], [place] [address] Apr, [facility] [address] [id number] [address] [place] [address], [place] [address] Mar, [facility] [address] [id number] [address] [place] [address], [place] [address] Mar, [facility] [address] [id number] [address] [place] [address], [place] [address] Mar, [facility] [address] [id number] [address] [place] [address], [place] [address] Mar, [facility] [address] [id number] [address] [place] [address], [place] [address] Mar, [facility] [address] [id number] [address] [place] [address], [place] [address] Mar, [facility] [address] [id number] [address] [place] [address], [place] [address] Feb, [facility] [address] [id number] [address] [place] [address], [place] [address] Feb, [facility] [address] [id number] [address] [place] [address], [place] [address] Feb, [facility] [address] [id number] [address] [place] [address], [place] [address] Feb, [facility] [address] [id number] [address] [place] [address], [place] [address] 14 Jan, 2014 [facility] [address] [id number] [address] [place] [address], [place] [address] 14 Jan, 2014 [facility] [address] [id number] [address] [place] [address], [place] [address] 14 Jan, 2014 [facility] [address] [id number] [address] [place] [address], [place] [address] 14 Jan, 2014 [facility] [address] [id number] [address] [place] [address], [place] [address] 22 Dec, 2013 [facility] [address] [id number] [address] [place] [address], [place] [address] 22 Dec, 2013 [facility] [address] [id number] [address] [place] [address], [place] [address] 15 Dec, 2013 [facility] [address] [id number] [address] [place] [address], [place] [address] 15 Dec, 2013 [facility] [address] [id number] [address] [place] [address], [place] [address] Nov, [facility] [address] [id number] [address] [place] [address], [place] [address] Nov, [facility] [address] [id number] [address] [place] [address] Nov, [facility] [address] [id number] [address] [place] [address], [place] [address] Nov, [facility] [address] [id number] [address] [place] [address], [place] [address] Nov, [facility] [address] [id number] [address] [place] [address], [place] [address] Nov, [facility] [address] [id number] [address] [place] [address], [place] [address] Nov, [facility] [address] [id number] [address] [place] [address], [place] [address] Oct, [facility] [address] [id number] [address] [place] [address], [place] [address] Oct, [facility] [address] [id number] [address] [place] [address], [place] [address] Oct, [facility] [address] [id number] [address] [place] [address], [place] [address] Oct, [facility] [address] [id number] [address] [place] [address], [place] [address] Oct, [facility] [address] [id number] [address] [place] [address], [place] [address] Oct, [facility] [address] [id number] [address] [place] [address], [place] [address] Oct, [facility] [address] [id number] [address] [place] [address], [place] [address] Sep, [facility] [address] [id number] [address] [place] [address], [place] [address] Sep, [facility] [address] [id number] [address] [place] [address], [place] [address] Sep, [facility] [address] [id number] [facility] [place] [address] Sep, [facility] [address] [id number] [address] [place] [address], [place] [address] Sep, [facility] [address] [id number] [address] [place] [address], [place] [address] Jul, [facility] [address] [id number] [address] [place] [address], [place] [address] Jul, [facility] [address] [id number] [address] [place] [address], [place] [address] Jul, [facility] [address] [id number] [address] [place] [address], [place] [address] Jul, [facility] [address] [id number] [address] [place] [address], [place] [address] Jul, [facility] [address] [id number] [address] [place] [address], [place] [address] Jul, [facility] [address] [id number] [address] [place] [address], [place] [address] Jul, [facility] [address] [id number] [address] [place] [address], [place] [address] Jul, [facility] [address] [id number] [address] [place] [address], [place] [address] Jul, [facility] [address] [id number] [address] [place] [address], [place] [address] Jul, [facility] [address] [id number] [address] [place] [address], [place] [address] Jul, [facility] [address] [id number] [address] [place] [address], [place] [address] Jul, [facility] [address] [id number] [address] [place] [address], [place] [address] Jun, [facility] [address] [id number] [address] [place] [address], [place] [address] Jun, [facility] [address] [id number] [facility] [place] [address] Jun, [facility] [address] [id number] [address] [place] [address], [place] [address] Jun, [facility] [address] [id number] [facility] [place] [address] Jun, [facility] [address] [id number] [address] [place] [address], [place] [address] Jun, [facility] [address] [id number] [address] [place] [address], [place] [address] Jun, [facility] [address] [id number] [address] [place] [address], [place] [address] Jun, [facility] [address] [id number] [address] [place] [address], [place] [address] May, [facility] [address] [id number] [address] [place] [address], [place] [address] May, [facility] [address] [id number] [address] [place] [address], [place] [address] May, [facility] [address] [id number] [address] [place] [address], [place] [address] May, [facility] [address] [id number] [address] [place] [address], [place] [address] May, [facility] [address] [id number] [address] [place] [address], [place] [address] May, [facility] [address] [id number] [address] [place] [address], [place] [address] May, [facility] [address] [id number] [address] [place] [address], [place] [address] May, [facility] [address] [id number] [address] [place] [address], [place] [address] Apr, [facility] [address] [id number] [address] [place] [address], [place] [address] Apr, [facility] [address] [id number] [address] [place] [address], [place] [address] Apr, [facility] [address] [id number] [address] [place] [address], [place] [address] Apr, [facility] [address] [id number] [address] [place] [address], [place] [address] Mar, [facility] [address] [id number] [address] [place] [address], [place] [address] Mar, [facility] [address] [id number] [address] [place] [address], [place] [address] Mar, [facility] [address] [id number] [address] [place] [address], [place] [address] Feb, [facility] [address] [id number] [address] [place] [address], [place] [address] Feb, [facility] [address] [id number] [address] [place] [address], [place] [address] Feb, [facility] [address] [id number] [address] [place] [address], [place] [address] Feb, [facility] [address] [id number] [address] [place] [address], [place] [address] Feb, [facility] [address] [id number] [address] [place] [address], [place] [address] Feb, [facility] [address] [id number] [address] [place] [address], [place] [address] Jan, [facility] [address] [id number] [address] [place] [address], [place] [address] Jan, [facility] [address] [id number] [address] [place] [address], [place] [address] Jan, [facility] [address] [id number] [address] [place] [address], [place] [address] Jan, [facility] [address] [id number] [address] [place] [address], [place] [address] Jan, [facility] [address] [id number] [address] [place] [address], [place] [address] Jan, [facility] [address] [id number] [address] [place] [address], [place] [address] Jan, [facility] [address] [id number] [address] [place] [address], [place] [address] Dec, [facility] [address] [id number] [address] [place] [address], [place] [address] 16 Dec, 2012 [facility] [address] [id number] [address] [place] [address], [place] [address] Dec, [facility] [address] [id number] [address] [place] [address], [place] [address] Dec, [facility] [address] [id number] [address] [place] [address], [place] [address] Nov, [facility] [address] [id number] [address] [place] [address], [place] [address] Nov, [facility] [address] [id number] [address] [place] [address], [place] [address] Nov, [facility] [address] [id number] [address] [place] [address], [place] [address] Nov, [facility] [address] [id number] [address] [place] [address], [place] [address] Nov, [facility] [address] [id number] [address] [place] [address], [place] [address] Nov, [facility] [address] [id number] [address] [place] [address], [place] [address] Nov, [facility] [address] [id number] [address] [place] [address], [place] [address] Oct, [facility] [address] [id number] [address] [place] [address] [place] [address] Oct, [facility] [address] [id number] [address] [place] [address], [place] [address] Oct, [facility] [address] [id number] [address] [place] [address], [place] [address] Oct, [facility] [address] [id number] [address] [place] [address], [place] [address] Oct, [facility] [address] [id number] [address] [place] [address], [place] [address] Oct, [facility] [address] [id number] [address] [place] [address], [place] [address] Oct, [facility] [address] [id number] [address] [place] [address], [place] [address] Oct, [facility] [address] [id number] [address] [place] [address], [place] [address] Sep, [facility] [address] [id number] [place] [id number] August, [facility] [address] [id number] [address] [place] [address], [place] [address] August, [facility] [address] [id number] [address] [place] [address], [place] [address] Jul, [facility] [address] [id number] [address] [place] [address], [place] [address] 29 Jul, 2012 [facility] [address] [id number] [address] [place] [address], [place] [address] Jul, [facility] [address] [id number] [address] [place] [address], [place] [address] Jul, [facility] [address] [id number] [address] [place] [address], [place] [address] Jul, [facility] [address] [id number] [address] [place] [address], [place] [address] 17 Jul, 2012 [facility] [address] [id number] [address] [place] [address], [place] [address] 16 Jul, 2012 [facility] [address] [id number] [address] [place] [address], [place] [address] 21 Jun, 2012 [facility] [address] [id number] [address] [place] [address], [place] [address] 18 Jun, 2012 [facility] [address] [id number] [address] [place] [address], [place] [address] 11 Jun, 2012 [facility] [address] [id number] [address] [place] [address], [place] [address] 04 Jun, 2012 [facility] [address] [id number] [address] [place] [address], [place] [address] 04 Jun, 2012 [facility] [address] [id number] [address] [place] [address], [place] [address] May, [facility] [address] [id number] [address] [place] [address], [place] [address] 18 May, 2012 [facility] [address] [id number] [address] [place] [address], [place] [address] May, [facility] [address] [id number] [address] [place] [address], [place] [address] Apr, [facility] [address] [id number] [address] [place] [address], [place] [address] Apr, [facility] [address] [id number] [address] [place] [address], [place] [address] Apr, [facility] [address] [id number] [address] [place] [address], [place] [address] Mar, [facility] [address] [id number] [address] [place] [address], [place] [address] Mar, [facility] [address] [id number] [address] [place] [address], [place] [address] 13 Mar, 2012 [facility] [address] [id number] [address] [place] [address], [place] [address] Mar, [facility] [address] [id number] [address] [place] [address], [place] [address] Mar, [facility] [address] [id number] [address] [place] [address], [place] [address] Mar, [facility] [address] [id number] [address] [place] [address], [place] [address] Feb, [facility] [address] [id number] [address] [place] [address], [place] [address] Feb, [facility] [address] [id number] [address] [place] [address], [place] [address] Jan, [facility] [address] [id number] [address] [place] [address], [place] [address] Jan, [facility] [address] [id number] [address] [place] [address], [place] [address] Dec, [facility] [address] [id number] [address] [place] [address], [place] [address] Nov, [facility] [address] [id number] [address] [place] [address], [place] [address] Nov, [facility] [address] [id number] [address] [place] [address], [place] [address] Nov, [facility] [address] [id number] [address] [place] [address], [place] [address] Nov, [facility] [address] [id number] [address] [place] [address], [place] [address] Oct, [facility] [address] [id number] [address] [place] [address], [place] [address] Oct, [facility] [address] [id number] [address] [place] [address], [place] [address] Oct, [facility] [address] [id number] [address] [place] [address], [place] [address] Sep, [facility] [address] [id number] [address] [place] [address], [place] [address] 14 Sep, 2011 [facility] [address] [id number] [address] [place] [address], [place] [address] 05 Sep, 2011 [facility] [address] [id number] [address] [place] [address], [place] [address] August, [facility] [address] [id number] [address] [place] [address], [place] [address] August, [facility] [address] [id number] [address] [place] [address], [place] [address] Jul, [facility] [address] [id number] [address] [place] [address], [place] [address] 24 Jul, 2011 [facility] [address] [id number] [address] [place] [address], [place] [address] Jul, [facility] [address] [id number] [address] [place] [address], [place] [address] Jul, [facility] [address] [id number] [address] [place] [address], [place] [address] Jun, [facility] [address] [id number] [address] [place] [address], [place] [address] May, [facility] [address] [id number] [address] [place] [address], [place] [address] Apr, [facility] [address] [id number] [address] [place] [address], [place] [address] Apr, [facility] [address] [id number] [address] [place] [address], [place] [address] Apr, [facility] [address] [id number] [address] [place] [address], [place] [address] Apr, [facility] [address] [id number] [address] [place] [address], [place] [address] Apr, [facility] [address] [id number] [address] [place] [address] [address] Apr, [facility] [address] [id number] [address] [place] [address], [place] [address] Mar, [facility] [address] [id number] [address] [place] [address], [place] [address] Mar, [facility] [address] [id number] [address] [place] [address], [place] [address] Feb, [facility] [address] [id number] [address] [place] [address], [place] [address] Feb, [facility] [address] [id number] [address] [place] [address], [place] [address] Feb, [facility] [address] [id number] [address] [place] [address], [place] [address] Feb, [facility] [address] [id number] [address] [place] [address], [place] [address] Jan, [facility] [address] [id number] [address] [place] [address], [place] [address] Jan, [facility] [address] [id number] [address] [place] [address], [place] [address] Jan, [facility] [address] [id number] [address] [place] [address], [place] [address] Jan, [facility] [address] [id number] [address] [place] [address], [place] [address] Nov, [facility] [address] [id number] [address] [place] [address] Mar, [facility] [address] [id number] [address] [place] [address], [place] [address] Mar, [facility] [address] [id number] [address] [place] [address], [place] [address] Feb, [facility] [address] [id number] [address] [place] [address], [place] [address] 15 Feb, 2010 [facility] [address] [id number] [address] [place] [address] Jan, [facility] [address] [id number] [address] [place] [address] Jan, [facility] [address] [id number] [address] [place] [address] Sep, [facility] [address] [id number] [address] [place] [address] May, [facility] [address] [id number] [address] [place] [id number] Apr, [facility] [address] [id number] [address] [place] [id number] Mar, [facility] [address] [id number] [address] [place] [id number] Feb, [facility] [address] [id number] [address] [place] [id number] Feb, [facility] [address] [id number] [address] [place] [id number] Feb, [facility] [address] [id number] [address] [place] [id number] Jan, [facility] [address] [id number] [address] [place] [id number] Jan, [facility] [address] [id number] [address] [place] [id number] Jan, [facility] [address] [id number] [address] [place] [id number] Jan, [facility] [address] [id number] [address] [place] [id number] August, IMMUNIZATIONS No Known Immunizations SOCIAL HISTORY [...] age 6 Hospitalization History surgery Hospitalization History [facility] tie treatment few times for BH
--- OUTSIDE RECORDS SUMMARY | 2019-09-29 10:45 | XMS REPORT ---
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 Active 15095483 Problem Open-angle glaucoma of both eyes, unspecified glaucoma stage, unspecified open-angle glaucoma type H40.10X0 Acti ve 36585019 Problem Adjustment disorder, unspecified type F43.20 Active 26656428 Problem Obstructive sleep apnea G47.33 Active 78198569 Problem Hypertensive retinopathy of both eyes H35.033 Active 4594667 Problem Type 2 diabetes mellitus with complication E11.8 Active 88735879 Problem Essential hypertension I10 Active 82429443 Problem Diabetes E11.9 Active 01245269 Problem Bipolar disorder, in partial remission, most rec ent episode manic F31.73 Active 41885363 Problem Intermittent explosive disorder in adult F63.81 Active 62896346 Problem Other diabetic neurological complication associated with type 2 diabetes mellitus E11.49 Active 922221857 Problem Depression F32.9 Active 98113003 Problem Neuropathy G62.9 Active 654346449 Problem Intermittent explosive disorder F63.81 Active 73621543 Problem Bipolar disorder, unspecified F31.9 Active 30534989 Problem Mild intellectual disability F70 A ctive 07621252 Problem Reactive airway disease, mild intermittent, uncomplicated J45.20 Active 971806927 Problem Gastroesophageal reflux disease without esophagitis K21.9 Active 127463990 ALLERGIES No Information ENCOUNTERS Encounter Location Date Diagnosis [facility] [address] [facility] [id number] [address] [place] [phone] Jan, [facility] [address] [facility] [id number] [address] [place] [phone] Dec, [facility] [address] [id number] [address] [place] [address] Dec, [facility] [address] [id number] [address] [place] [address] Nov, [facility] [address] [id number] [address] [place] [phone] Oct, [facility] [id number] [place] [phone] Oct, Oral health maintenance stat us requiring routine preventive dental care K08.9 [facility] [address] [id number] [address] [place] [address] August, Intermittent explosive disor salvatore in adult F63.81 ; Bipolar disorder, unspecified F31.9 and Mild intellectual disability F70 [facility] [address] [id number] [address] [place] [address] [phone] August, Dental caries K02.9 [facility] [address] [id number] [address] [place] [phone] Jul, Onychomycosis B35.1 ; Other diabetic neurological complication associated with type 2 diabetes mellitus E11.49 and Tinea pedis of both feet B35.3 [facility] [address] [id number] [address] [place] [address] [phone] Jul, Caries K02.9 [facility] [address] [id number] [address] [place] [phone] Jul, Type 2 diabetes mellitus wit h complication E11.8 ; Tobacco abuse Z72.0 and Bipolar disorder, unspecified F31.9 [facility] [address] [id number] [address] [place] [address] Jun, [facility] [address] [id number] [address] [place] [address] [phone] Jun, Dental examination Z01.20 an d Oral health maintenance status requiring routine preventive dental care K08.9 [facility] [address] [id number] [address] [place] [address] May, Bilateral impacted cerumen H 61.23 [place] [id number] [place] [address] Apr, Bipolar disorder, unspecifie d F31.9 ; Intermittent explosive disorder in adult F63.81 ; Type 2 diabetes mellitus with complication E11.8 ; Tobacco abuse Z72.0 and Colon cancer screening Z12.11 [place] [address] [place] [id number] [address] [place] [address] Apr, Onychomycosis B35.1 and Othe r diabetic neurological complication associated with type 2 diabetes mellitus E11.49 [place] [address] [place] [id number] [address] [place] [address] Apr, Intermittent explosive disor salvatore in adult F63.81 ; Bipolar disorder, unspecified F31.9 and Mild intellectual disability F70 [place] [address] [place] [id number] [address] [place] [phone] Mar, Diabetes E11.9 [facility] [address] [place] [id number] [address] [place] [address] Jan, Encounter for immunization Z 23 [place] [address] [place] [id number] [address] [place] [address] Jan, Tinea pedis of both feet B35 .3 ; Other diabetic neurological complication associated with type 2 diabetes mellitus E11.49 and Onychomycosis B35.1 [place] [address] [place] [id number] [address] [place] [address] Nov, Type 2 diabetes mellitus wit h complication E11.8 [place] [address] [place] [id number] [address] [place] [address] Nov, [place] [address] [place] [id number] [address] [place] [address] Oct, Intermittent explosive disor salvatore in adult F63.81 ; Bipolar disorder, unspecified F31.9 and Mild intellectual disability F70 [place] [id number] [place] [address] Oct, [facility] [address] [id number] [address] [place] [address] [phone] Oct, Dental examination Z01.20 [facility] [address] [facility] [id number] [address] [place] [address] 06 Oct, 2017 Onychomycosis B35.1 and Othe r diabetic neurological complication associated with type 2 diabetes mellitus E11.49 [facility] [address] [facility] [id number] [address] [place] [address] Sep, Type 2 diabetes mellitus wit h complication E11.8 and Colon cancer screening Z12.11 [place] [address] [facility] [id number] [address] [place] [phone] 18 Sep, 2017 Type 2 diabetes mellitus wit h complication E11.8 ; Colon cancer screening Z12.11 and Neuropathy G62.9 [place] [address] [place] [id number] [address] [place] [address] August, Diabetes E11.9 [facility] [address] [facility] [id number] [address] [place] [address] [phone] Jul, Dental examination Z01.20 [facility] [address] [place] [id number] [address] [place] [address] 27 May, 2017 Mild intellectual disability F70 [place] [address] [place] [id number] [address] [place] [address] 07 May, 2017 Mild intellectual disability F70 ; High risk medication use Z79.899 ; Intermittent explosive disorder in adult F63.81 and Bipolar disorder, unspecified F31.9 [place] [address] [place] [id number] [address] [place] [phone] May, [place] [address] [place] [id number] [address] [place] [address] May, [place] [address] [place] [id number] [address] [place] [address] Apr, Type 2 diabetes mellitus wit h complication E11.8 ; Mild intellectual disability F70 ; Gastroesophageal reflux disease without esophagitis K21.9 ; Reactive airway disease, mild intermittent, uncomplicated J45.20 and Tobacco abuse Z72.0 [facility] [address] [facility] [id number] [address] [place] [address] Apr, High risk medication use Z79 .899 ; Mild intellectual disability F70 ; Intermittent explosive disorder in adult F63.81 and Bipolar disorder, unspecified F31.9 [facility] [address] [id number] [address] [place] [address] [id number] Mar, Dental examination Z01.20 [facility] [address] [id number] [address] [place] [address] [phone] Mar, Encounter for dental exam an d cleaning w/o abnormal findings Z01.20 [facility] [address] [facility] [id number] [address] [place] [address] 12 Jan, 2017 [facility] [address] [facility] [id number] [address] [place] [phone] 11 Jan, 2017 [facility] [address] [facility] [id number] [address] [place] [phone] 10 Jan, 2017 Mild intellectual disability F70 ; Bipolar disorder, unspecified F31.9 and Intermittent explosive disorder in adult F63.81 [facility] [address] [facility] [id number] [address] [place] [phone] 02 Jan, 2017 Diabetes E11.9 [facility] [address] [facility] [id number] [address] [place] [address] [id number] 13 Dec, 2016 Encounter for dental examina tion and cleaning without abnormal findings Z01.20 [facility] [address] [facility] [id number] [address] [place] [phone] 12 Dec, 2016 Bipolar disorder, unspecifie d F31.9 ; Intermittent explosive disorder in adult F63.81 and Mild intellectual disability F70 [facility] [address] [facility] [id number] [address] [place] [address] 25 Aug, 2017 Diabetes E11.9 [facility] [address] [id number] [address] [place] [phone] Nov, [facility] [address] [id number] [address] [place] [phone] 14 Nov, 2016 Diabetes E11.9 and Colon can cer screening Z12.[address] [id number] [id number] Sep, Dental examination Z01.20 [facility] [address] [id number] [address] [place] [address] [phone] Sep, Encounter for dental examina tion and cleaning without abnormal findings Z01.20 [facility] [address] [id number] [address] [place] [phone] 13 Sep, 2016 Bipolar disorder, unspecifie d F31.9 [facility] [address] [id number] [address] [place] [address] Sep, Bipolar disorder, unspecifie d F31.9 [facility] [address] [id number] [address] [place] [address] Jul, [facility] [address] [facility] [id number] [address] [place] [phone] Jul, Type 2 diabetes mellitus wit h complication E11.[address] [id number] [id number] 15 Jun, 2016 Dental examination Z01.20 [facility] [address] [id number] [address] [place] [address] [id number] 15 Jun, 2016 Encounter for dental examina tion and cleaning without abnormal findings Z01.20 [facility] [address] [facility] [id number] [address] [place] [phone] 18 Apr, 2016 Sports physical Z02.5 [facility] [address] [facility] [id number] [address] [place] [phone] 14 Mar, 2016 Bipolar disorder, in partial remission, most recent episode manic F31.73 and Intermittent explosive disorder in adult F63.81 [facility] [address] [id number] [address] [place] [phone] 08 Mar, 2016 [facility] [address] [id number] [address] [place] [address] Mar, Diabetes E11.9 [facility] [address] [facility] [id number] [address] [place] [address] [phone] Feb, Encounter for dental examina tion and cleaning without abnormal findings Z01.20 [facility] [address] [id number] [address] [place] [phone] 22 Dec, 2015 Nocturnal hypoxemia G47.34 a nd Encounter for immunization Z23 [facility] [address] [facility] [id number] [address] [place] [id number] 15 Dec, 2015 [facility] [address] [facility] [id number] [address] [place] [phone] Dec, [facility] [address] [facility] [id number] [address] [place] [address] Dec, Bipolar disorder, unspecifie d F31.9 [facility] [address] [place] [id number] [place] [address] [id number] Oct, Encounter for dental examina tion and cleaning without abnormal findings Z01.[address] [place] [id number] [facility] [id number] [place] [address] [id number] Oct, Dental examination Z01.20 [facility] [address] [facility] [id number] [address] [place] [address] Oct, Diabetes E11.9 [facility] [address] [facility] [id number] [address] [place] [phone] Oct, Diabetes E11.9 ; Reactive ai rway disease, mild intermittent, uncomplicated J45.20 and Tobacco abuse Z72.0 [facility] [address] [facility] [id number] [address] [place] [address] Sep, Bipolar disorder, unspecifie d F31.9 and Depression F32.9 [place] [address] [phone] Sep, [place] [address] [address] August, Tinea pedis of both feet B35 .3 and DM w/o complication type II, uncontrolled E11.65 [place] [address] [address] Jul, [place] [address] [phone] Jul, [place] [address] [address] Jul, Obstructive sleep apnea G47. 33 [place] [address] [address] Jun, Diabetes E11.9 [place] [address] [address] Jun, [place] [address] [phone] Jun, [place] [address] [phone] Jun, Bipolar disorder, unspecifie d F31.9 and Mental retardation F79 [place] [address] [address] Apr, [place] [address] [address] Feb, Diabetes E11.9 ; Encounter f or immunization Z23 ; Cough R05 and Nicotine abuse Z72.0 [place] [address] [phone] 09 Jan, 2015 Bipolar disorder, unspecifie d F31.9 and Diabetes mellitus without mention of complication, type II or unspecified type, uncontrolled 250.02 [place] [address] [address] Jan, [facility] [address] [facility] [id number] [address] [place] [phone] Dec, Reactive airway disease 493. 90 and Enuresis 788.30 [facility] [address] [facility] [id number] [address] [place] [phone] Dec, [facility] [id number] [place] [address] Nov, [facility] [address] [place] [id number] [address] [place] [address] Nov, [facility] [address] [place] [id number] [address] [place] [address] Nov, Annual physical exam V70.0 ; Urinary incontinence 788.30 ; Diabetes 250.00 and Hypertension 401.9 [place] [address] [place] [id number] [address] [place] [address] Oct, Diabetes mellitus without me ntion of complication, type II or unspecified type, uncontrolled 250.02 [facility] [address] [place] [id number] [address] [place] [address] Oct, Diabetes mellitus without me ntion of complication, type II or unspecified type, uncontrolled 250.02 [facility] [address] [place] [id number] [address] [place] [address] Oct, Diabetes mellitus without me ntion of complication, type II or unspecified type, uncontrolled 250.02 [facility] [address] [place] [id number] [address] [place] [phone] Oct, [facility] [address] [place] [id number] [address] [place] [address] Oct, [facility] [address] [place] [id number] [address] [place] [phone] Oct, Bipolar disorder, unspecifie d 296.80 [facility] [address] [facility] [id number] [address] [place] [address] [id number] Sep, Dental examination V72.2 [facility] [address] [id number] [address] [place] [address] August, [facility] [address] [id number] [address] [place] [address] [id number] August, Dental examination V72.2 [facility] [address] [id number] [address] [place] [phone] August, [facility] [address] [id number] [address] [place] [phone] Jul, [facility] [address] [id number] [address] [place] [phone] Jul, [facility] [address] [id number] [address] [place] [address] Jun, [facility] [address] [id number] [address] [place] [phone] Jun, [facility] [address] [id number] [address] [place] [address] Jun, [facility] [address] [id number] [address] [place] [address] Jun, [facility] [address] [id number] [address] [place] [address] May, [facility] [address] [id number] [address] [place] [address] May, [facility] [address] [id number] [address] [place] [address] May, [facility] [address] [id number] [address] [place] [address] May, [facility] [address] [id number] [address] [place] [address] May, [facility] [address] [id number] [address] [place] [address] May, [facility] [address] [id number] [address] [place] [address], [place] [address] May, 2014 [facility] [address] [id number] [address] [place] [address], [place] [address] May, 2014 [facility] [address] [id number] [address] [place] [address], [place] [address] May, 2014 [facility] [address] [id number] [address] [place] [address], [place] [address] May, 2014 [facility] [address] [id number] [address] [place] [address], [place] [address] May, 2014 [facility] [address] [id number] [address] [place] [address], [place] [address] May, 2014 [facility] [address] [id number] [address] [place] [address], [place] [address] May, 2014 [facility] [address] [id number] [address] [place] [address], [place] [address] May, 2014 [facility] [address] [id number] [address] [place] [address], [place] [address] May, [facility] [address] [id number] [address] [place] [address], [place] [address] Apr, [facility] [address] [id number] [address] [place] [address], [place] [address] Apr, [facility] [address] [id number] [address] [place] [address], [place] [address] Apr, [facility] [address] [id number] [address] [place] [address], [place] [address] Apr, [facility] [address] [id number] [address] [place] [address], [place] [address] Apr, [facility] [address] [id number] [address] [place] [address], [place] [address] Apr, [facility] [address] [id number] [address] [place] [address], [place] [address] Apr, [facility] [address] [id number] [address] [place] [address], [place] [address] Apr, [facility] [address] [id number] [address] [place] [address], [place] [address] Apr, [facility] [address] [id number] [address] [place] [address], [place] [address] Apr, [facility] [address] [id number] [address] [place] [address], [place] [address] Apr, [facility] [address] [id number] [address] [place] [address], [place] [address] Apr, [facility] [address] [id number] [address] [place] [address], [place] [address] Mar, [facility] [address] [id number] [address] [place] [address], [place] [address] Mar, [facility] [address] [id number] [address] [place] [address], [place] [address] Mar, [facility] [address] [id number] [address] [place] [address], [place] [address] Mar, [facility] [address] [id number] [address] [place] [address], [place] [address] Mar, [facility] [address] [id number] [address] [place] [address], [place] [address] Mar, [facility] [address] [id number] [address] [place] [address], [place] [address] Feb, [facility] [address] [id number] [address] [place] [address], [place] [address] Feb, [facility] [address] [id number] [address] [place] [address], [place] [address] Feb, [facility] [address] [id number] [address] [place] [address], [place] [address] Feb, [facility] [address] [id number] [address] [place] [address], [place] [address] 14 Jan, 2014 [facility] [address] [id number] [address] [place] [address], [place] [address] 14 Jan, 2014 [facility] [address] [id number] [address] [place] [address], [place] [address] 14 Jan, 2014 [facility] [address] [id number] [address] [place] [address], [place] [address] 14 Jan, 2014 [facility] [address] [id number] [address] [place] [address], [place] [address] 22 Dec, 2013 [facility] [address] [id number] [address] [place] [address], [place] [address] 22 Dec, 2013 [facility] [address] [id number] [address] [place] [address], [place] [address] 15 Dec, 2013 [facility] [address] [id number] [address] [place] [address], [place] [address] 15 Dec, 2013 [facility] [address] [id number] [address] [place] [address], [place] [address] Nov, [facility] [address] [id number] [address] [place] [address], [place] [address] Nov, [facility] [facility] [address] [id number] [address] [place] [address], [place] [address] Nov, [facility] [address] [id number] [address] [place] [address], [place] [address] Nov, [facility] [address] [id number] [address] [place] [address], [place] [address] Nov, [facility] [address] [id number] [address] [place] [address], [place] [address] Nov, [facility] [address] [id number] [address] [place] [address], [place] [address] Nov, [facility] [address] [id number] [address] [place] [address], [place] [address] Oct, [facility] [address] [id number] [facility] [place] [address] Oct, [facility] [address] [id number] [address] [place] [address], [place] [address] Oct, [facility] [address] [id number] [address] [place] [address], [place] [address] Oct, [facility] [address] [id number] [address] [place] [address], [place] [address] Oct, [facility] [address] [id number] [address] [place] [address], [place] [address] Oct, [facility] [address] [id number] [address] [place] [address], [place] [address] Oct, [facility] [address] [id number] [address] [place] [address], [place] [address] Sep, [facility] [address] [id number] [address] [place] [address], [place] [address] Sep, [facility] [address] [id number] [address] [place] [address], [place] [address] Sep, [facility] [address] [id number] [address] [place] [address], [place] [address] Sep, [facility] [address] [id number] [address] [place] [address], [place] [address] Sep, [facility] [address] [id number] [address] [place] [address], [place] [address] Jul, [facility] [address] [id number] [address] [place] [address], [place] [address] Jul, [facility] [address] [id number] [address] [place] [address], [place] [address] Jul, [facility] [address] [id number] [address] [place] [address], [place] [address] Jul, [facility] [address] [id number] [facility] [place] [address] Jul, [facility] [address] [id number] [facility] [place] [address] Jul, [facility] [address] [id number] [facility] [place] [address] Jul, [facility] [address] [id number] [facility] [place] [address] Jul, [facility] [address] [id number] [facility] [place] [address] Jul, [facility] [address] [id number] [address] [place] [address], [place] [address] Jul, [facility] [address] [id number] [address] [place] [address], [place] [address] Jul, [facility] [address] [id number] [address] [place] [address], [place] [address] Jul, [facility] [address] [id number] [address] [place] [address], [place] [address] Jun, [facility] [address] [id number] [address] [place] [address], [place] [address] Jun, [facility] [address] [id number] [address] [place] [address], [place] [address] Jun, [facility] [address] [id number] [address] [place] [address], [place] [address] Jun, [facility] [address] [id number] [address] [place] [address], [place] [address] Jun, [facility] [address] [id number] [address] [place] [address], [place] [address] Jun, [facility] [address] [id number] [address] [place] [address], [place] [address] Jun, [facility] [address] [id number] [address] [place] [address], [place] [address] Jun, [facility] [address] [id number] [address] [place] [address], [place] [address] May, [facility] [address] [id number] [address] [place] [address], [place] [address] May, [facility] [address] [id number] [address] [place] [address], [place] [address] May, [facility] [address] [id number] [address] [place] [address], [place] [address] May, [facility] [address] [id number] [address] [place] [address], [place] [address] May, [facility] [address] [id number] [address] [place] [address], [place] [address] May, [facility] [address] [id number] [address] [place] [address], [place] [address] May, [facility] [address] [id number] [address] [place] [address], [place] [address] May, [facility] [address] [id number] [address] [place] [address], [place] [address] Apr, [facility] [address] [id number] [address] [place] [address], [place] [address] Apr, [facility] [address] [id number] [address] [place] [address], [place] [address] Apr, [facility] [address] [id number] [address] [place] [address], [place] [address] Apr, [facility] [address] [id number] [address] [place] [address], [place] [address] Mar, [facility] [address] [id number] [address] [place] [address], [place] [address] Mar, [facility] [address] [id number] [address] [place] [address], [place] [address] Mar, [facility] [address] [id number] [address] [place] [address], [place] [address] Feb, [facility] [address] [id number] [address] [place] [address], [place] [address] Feb, [facility] [address] [id number] [address] [place] [address], [place] [address] Feb, [facility] [address] [id number] [address] [place] [address], [place] [address] Feb, [facility] [address] [id number] [address] [place] [address], [place] [address] Feb, [facility] [address] [id number] [address] [place] [address], [place] [address] Feb, [facility] [address] [id number] [address] [place] [address], [place] [address] Jan, [facility] [address] [id number] [address] [place] [address], [place] [address] Jan, [facility] [address] [id number] [address] [place] [address], [place] [address] Jan, [facility] [address] [id number] [address] [place] [address], [place] [address] Jan, [facility] [address] [id number] [address] [place] [address], [place] [address] Jan, [facility] [address] [id number] [address] [place] [address], [place] [address] Jan, [facility] [address] [id number] [address] [place] [address], [place] [address] Jan, [facility] [address] [id number] [address] [place] [address], [place] [address] 25 Dec, 2012 [facility] [address] [id number] [address] [place] [address], [place] [address] 16 Dec, 2012 [facility] [address] [id number] [address] [place] [address], [place] [address] Dec, [facility] [address] [id number] [address] [place] [address], [place] [address] Dec, [facility] [address] [id number] [address] [place] [address], [place] [address] Nov, [facility] [address] [id number] [address] [place] [address], [place] [address] Nov, [facility] [address] [id number] [address] [place] [address], [place] [address] Nov, [facility] [address] [id number] [address] [place] [address], [place] [address] Nov, [facility] [address] [id number] [address] [place] [address], [place] [address] Nov, [facility] [address] [id number] [address] [place] [address], [place] [address] Nov, [facility] [address] [id number] [address] [place] [address], [place] [address] Nov, [facility] [address] [id number] [address] [place] [address], [place] [address] Oct, [facility] [address] [id number] [address] [place] [address], [place] [address] Oct, [facility] [address] [id number] [address] [place] [address], [place] [address] Oct, [facility] [address] [id number] [address] [place] [address], [place] [address] Oct, [facility] [address] [id number] [address] [place] [address], [place] [address] Oct, [facility] [address] [id number] [address] [place] [address], [place] [address] Oct, [facility] [address] [id number] [address] [place] [address], [place] [address] Oct, [facility] [address] [id number] [facility] [place] [address] Oct, [facility] [address] [id number] [address] [place] [address], [place] [address] Sep, [id number] [address] [id number] [id number] August, [facility] [address] [id number] [facility] [place] [address] August, [facility] [address] [id number] [address] [place] [address], [place] [address] Jul, [facility] [address] [id number] [address] [place] [address], [place] [address] Jul, [facility] [address] [id number] [address] [place] [address], [place] [address] Jul, [facility] [address] [id number] [address] [place] [address], [place] [address] Jul, [facility] [address] [id number] [address] [place] [address], [place] [address] Jul, [facility] [address] [id number] [address] [place] [address], [place] [address] 17 Jul, 2012 [facility] [address] [id number] [address] [place] [address], [place] [address] 16 Jul, 2012 [facility] [address] [id number] [address] [place] [address], [place] [address] Jun, [facility] [address] [id number] [address] [place] [address], [place] [address] 18 Jun, 2012 [facility] [address] [id number] [address] [place] [address], [place] [address] 11 Jun, 2012 [facility] [address] [id number] [address] [place] [address], [place] [address] Jun, [facility] [address] [id number] [address] [place] [address], [place] [address] Jun, [facility] [address] [id number] [address] [place] [address], [place] [address] May, [facility] [address] [id number] [address] [place] [address], [place] [address] 18 May, 2012 [facility] [address] [id number] [address] [place] [address], [place] [address] May, [facility] [address] [id number] [address] [place] [address], [place] [address] 15 Apr, 2012 [facility] [address] [id number] [address] [place] [address], [place] [address] 14 Apr, 2012 [facility] [address] [id number] [address] [place] [address], [place] [address] Apr, [facility] [address] [id number] [address] [place] [address], [place] [address] Mar, [facility] [address] [id number] [address] [place] [address], [place] [address] Mar, [facility] [address] [id number] [address] [place] [address], [place] [address] Mar, [facility] [address] [id number] [address] [place] [address], [place] [address] Mar, [facility] [address] [id number] [address] [place] [address], [place] [address] Mar, [facility] [address] [id number] [address] [place] [address], [place] [address] Mar, [facility] [address] [id number] [address] [place] [address], [place] [address] Feb, [facility] [address] [id number] [address] [place] [address], [place] [address] Feb, [facility] [address] [id number] [address] [place] [address], [place] [address] 18 Jan, 2012 [facility] [address] [id number] [address] [place] [address], [place] [address] Jan, [facility] [address] [id number] [address] [place] [address], [place] [address] Dec, [facility] [address] [id number] [address] [place] [address], [place] [address] Nov, [facility] [address] [id number] [address] [place] [address], [place] [address] Nov, [facility] [address] [id number] [address] [place] [address], [place] [address] Nov, [facility] [address] [id number] [address] [place] [address], [place] [address] Nov, [facility] [address] [id number] [address] [place] [address], [place] [address] Oct, [facility] [address] [id number] [address] [place] [address], [place] [address] Oct, [facility] [address] [id number] [address] [place] [address], [place] [address] Oct, [facility] [address] [id number] [address] [place] [address], [place] [address] Sep, [facility] [address] [id number] [address] [place] [address], [place] [address] Sep, [facility] [address] [id number] [address] [place] [address], [place] [address] Sep, [facility] [address] [id number] [address] [place] [address], [place] [address] August, [facility] [address] [id number] [address] [place] [address], [place] [address] August, [facility] [address] [id number] [address] [place] [address], [place] [address] Jul, [facility] [address] [id number] [address] [place] [address], [place] [address] Jul, [facility] [address] [id number] [address] [place] [address], [place] [address] Jul, [facility] [address] [id number] [address] [place] [address], [place] [address] Jul, [facility] [address] [id number] [address] [place] [address], [place] [address] Jun, [facility] [address] [id number] [address] [place] [address], [place] [address] May, [facility] [address] [id number] [address] [place] [address], [place] [address] Apr, [facility] [address] [id number] [address] [place] [address], [place] [address] Apr, [facility] [address] [id number] [address] [place] [address], [place] [address] Apr, [facility] [address] [id number] [address] [place] [address], [place] [address] Apr, [facility] [address] [id number] [address] [place] [address], [place] [address] Apr, [facility] [address] [id number] [address] [place] [address], [place] [address] Apr, [facility] [address] [id number] [address] [place] [address], [place] [address] Mar, [facility] [address] [id number] [address] [place] [address], [place] [address] Mar, [facility] [address] [id number] [address] [place] [address], [place] [address] Feb, [facility] [address] [id number] [address] [place] [address], [place] [address] 18 Feb, 2011 [facility] [address] [id number] [address] [place] [address], [place] [address] 17 Feb, 2011 [facility] [address] [id number] [address] [address] Feb, [facility] [address] [id number] [address] [place] [address], [place] [address] Jan, [facility] [address] [id number] [address] [place] [address], [place] [address] 18 Jan, 2011 [facility] [address] [id number] [address] [place] [address], [place] [address] Jan, [facility] [address] [id number] [address] [place] [address] Jan, [facility] [address] [id number] [address] [place] [address], [place] [address] Nov, [facility] [address] [id number] [address] [place] [address] Mar, [facility] [address] [id number] [address] [place] [address], [place] [address] Mar, [facility] [address] [id number] [address] [place] [address] 30 Feb, 2010 [facility] [address] [id number] [address] [place] [address] Feb, [facility] [address] [id number] [address] [place] [address] Jan, [facility] [address] [id number] [address] [place] [address] Jan, [facility] [address] [id number] [address] [place] [address] Sep, [facility] [address] [id number] [address] [place] [address], [place] [address] May, [facility] [address] [id number] [address] [place] [id number] Apr, [facility] [address] [id number] [address] [place] [address], [place] [phone] Mar, [facility] [address] [id number] [address] [place] [id number] 15 Feb, 2009 [facility] [address] [id number] [address] [place] [phone] Feb, [facility] [address] [id number] [address] [place] [phone] 10 Feb, 2009 [facility] [address] [id number] [address] [place] [id number] Jan, [facility] [address] [id number] [address] [place] [id number] Jan, [facility] [address] [id number] [address] [place] [phone] Jan, [facility] [address] [id number] [address] [place] [phone] Jan, [facility] [address] [id number] [address] [place] [phone] August, IMMUNIZATIONS No Known Immunizations SOCIAL HISTORY Never Assessed REASON FOR VISIT PLAN OF CARE VITAL SIGNS Weight 208.38 lbs 2013-11-25 Temperature 100 degrees Fahrenheit 2013-11-25 Heart Rate 72 bpm 2013-11-25 Respiratory Rate 28 2013-11-25 Blood pressure systolic 104 mmHg 2013-11-25 Blood pressure diastolic 70 mmHg 2013-11-25 MEDICATIONS Unknown Medications RESULTS No Results PROCEDURES [...] age 6 Hospitalization History surgery Hospitalization History [facility] [place], in[place] tient treatment few times for BH
--- OUTSIDE RECORDS SUMMARY | 2019-09-29 10:45 | XMS REPORT ---
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 Active 30216733 Problem Open-angle glaucoma of both eyes, unspecified glaucoma stage, unspecified open-angle glaucoma type H40.10X0 Acti ve 01880000 Problem Adjustment disorder, unspecified type F43.20 Active 83153788 Problem Obstructive sleep apnea G47.33 Active 06659106 Problem Hypertensive retinopathy of both eyes H35.033 Active 1777565 Problem Type 2 diabetes mellitus with complication E11.8 Active 78036910 Problem Essential hypertension I10 Active 74947887 Problem Diabetes E11.9 Active 99522243 Problem Bipolar disorder, in partial remission, most rec ent episode manic F31.73 Active 68572311 Problem Intermittent explosive disorder in adult F63.81 Active 61337252 Problem Other diabetic neurological complication associated with type 2 diabetes mellitus E11.49 Active 612963426 Problem Depression F32.9 Active 60145958 Problem Neuropathy G62.9 Active 801157341 Problem Intermittent explosive disorder F63.81 Active 60857019 Problem Bipolar disorder, unspecified F31.9 Active 14946808 Problem Mild intellectual disability F70 A ctive 06587505 Problem Reactive airway disease, mild intermittent, uncomplicated J45.20 Active 205784549 Problem Gastroesophageal reflux disease without esophagitis K21.9 Active [id number] ALLERGIES No Information ENCOUNTERS Encounter Location Date Diagnosis OUTREACH [facility] [address] [address] [id number] [address] 04 Jan, 2019 [facility] [address] [facility] [id number] [address] [place] [address] Jan, [facility] [address] [id number] [address] [place] [address] Dec, [facility] [address] [id number] [address] [place] [address] Dec, [facility] [address] [id number] [address] [place] [address] Nov, [facility] [address] [id number] [address] [place] [address] Oct, [facility] [address] [facility] [id number] [place] [address] Oct, Oral health maintenance stat us requiring routine preventive dental care K08.9 [facility] [address] [facility] [id number] [address] [place] [address] August, Intermittent explosive disor salvatore in adult F63.81 ; Bipolar disorder, unspecified F31.9 and Mild intellectual disability F70 [facility] [address] [facility] [id number] [address] [place] [id number] August, Dental caries K02.9 [facility] [address] [facility] [id number] [address] [place] [address] Jul, Onychomycosis B35.1 ; Other diabetic neurological complication associated with type 2 diabetes mellitus E11.49 and Tinea pedis of both feet B35.3 [facility] [address] [id number] [address] [place] [address] [id number] Jul, Caries K02.9 [facility] [address] [id number] [address] [place] [address] Jul, Type 2 diabetes mellitus wit h complication E11.8 ; Tobacco abuse Z72.0 and Bipolar disorder, unspecified F31.9 [facility] [address] [id number] [address] [place] [address] Jun, [facility] [address] [id number] [address] [place] [address] [id number] 22 Jun, 2018 Dental examination Z01.20 an d Oral health maintenance status requiring routine preventive dental care K08.9 [place] [address] [id number] [place] [address] 11 May, 2018 Bilateral impacted cerumen H 61.23 [place] [address] [place] [id number] [address] [place] [address] Apr, Bipolar disorder, unspecifie d F31.9 ; Intermittent explosive disorder in adult F63.81 ; Type 2 diabetes mellitus with complication E11.8 ; Tobacco abuse Z72.0 and Colon cancer screening Z12.11 [place] [address] [place] [id number] [address] [place] [address] Apr, Onychomycosis B35.1 and Othe r diabetic neurological complication associated with type 2 diabetes mellitus E11.49 [place] [address] [address] [id number] [address] [place] [address] Apr, Intermittent explosive disor salvatore in adult F63.81 ; Bipolar disorder, unspecified F31.9 and Mild intellectual disability F70 [place] [address] [id number] [address] [place] [address] Mar, Diabetes E11.9 [facility] [address] [id number] [address] [place] [address] 20 Jan, 2018 Encounter for immunization Z 23 [place] [address] [address] [id number] [address] [place] [address] Jan, Tinea pedis of both feet B35 .3 ; Other diabetic neurological complication associated with type 2 diabetes mellitus E11.49 and Onychomycosis B35.1 [place] [address] [id number] [address] [place] [address] Nov, Type 2 diabetes mellitus wit h complication E11.8 [place] [address] [id number] [address] [place] [address] Nov, [place] [address] [address] [id number] [address] [place] [address] Oct, Intermittent explosive disor salvatore in adult F63.81 ; Bipolar disorder, unspecified F31.9 and Mild intellectual disability F70 [facility] [address] [facility] [id number] [address] [place] [address] Oct, [facility] [address] [facility] [id number] [address] [place] [address] [id number] Oct, Dental examination Z01.20 [facility] [address] [facility] [id number] [address] [place] [address] Oct, Onychomycosis B35.1 and Othe r diabetic neurological complication associated with type 2 diabetes mellitus E11.49 [place] [address] [facility] [id number] [address] [place] [address] Sep, Type 2 diabetes mellitus wit h complication E11.8 and Colon cancer screening Z12.11 [place] [address] [place] [id number] [address] [place] [address] 18 Sep, 2017 Type 2 diabetes mellitus wit h complication E11.8 ; Colon cancer screening Z12.11 and Neuropathy G62.9 [place] [address] [facility] [id number] [address] [place] [address] August, Diabetes E11.9 [facility] [address] [id number] [address] [place] [address] [id number] Jul, Dental examination Z01.20 [place] [address] [facility] [id number] [address] [place] [address] 27 May, 2017 Mild intellectual disability F70 [facility] [address] [facility] [id number] [address] [place] [address] 07 May, 2017 Mild intellectual disability F70 ; High risk medication use Z79.899 ; Intermittent explosive disorder in adult F63.81 and Bipolar disorder, unspecified F31.9 [facility] [address] [facility] [id number] [address] [place] [address] 05 May, 2017 [place] [address] [facility] [id number] [address] [place] [address] May, [facility] [address] [facility] [id number] [address] [place] [address] Apr, Type 2 diabetes mellitus wit h complication E11.8 ; Mild intellectual disability F70 ; Gastroesophageal reflux disease without esophagitis K21.9 ; Reactive airway disease, mild intermittent, uncomplicated J45.20 and Tobacco abuse Z72.0 [facility] [address] [facility] [id number] [address] [place] [address] Apr, High risk medication use Z79 .899 ; Mild intellectual disability F70 ; Intermittent explosive disorder in adult F63.81 and Bipolar disorder, unspecified F31.9 [facility] [id number] [place] [address] [id number] Mar, Dental examination Z01.20 [facility] [address] [id number] [address] [id number] Mar, Encounter for dental exam an d cleaning w/o abnormal findings Z01.20 [facility] [address] [facility] [id number] [address] [place] [id number] 12 Jan, 2017 [facility] [address] [facility] [id number] [address] [place] [address] Jan, [facility] [address] [facility] [id number] [address] [place] [address] Jan, Mild intellectual disability F70 ; Bipolar disorder, unspecified F31.9 and Intermittent explosive disorder in adult F63.81 [facility] [address] [id number] [address] [place] [address] 02 Jan, 2017 Diabetes E11.9 [facility] [address] [id number] [address] [place] [address] [id number] 13 Dec, 2016 Encounter for dental examina tion and cleaning without abnormal findings Z01.20 [facility] [address] [id number] [address] [place] [address] 12 Dec, 2016 Bipolar disorder, unspecifie d F31.9 ; Intermittent explosive disorder in adult F63.81 and Mild intellectual disability F70 [facility] [address] [id number] [address] [place] [address] Nov, Diabetes E11.9 [facility] [address] [id number] [address] [place] [address] Nov, [facility] [address] [facility] [id number] [address] [place] [address] Nov, Diabetes E11.9 and Colon can cer screening Z12.11 [place] [id number] [facility] [id number] [id number] Sep, Dental examination Z01.20 [facility] [address] [id number] [address] [place] [address] [id number] Sep, Encounter for dental examina tion and cleaning without abnormal findings Z01.20 [facility] [address] [id number] [address] [place] [address] Sep, Bipolar disorder, unspecifie d F31.9 [facility] [address] [id number] [address] [place] [address] Sep, Bipolar disorder, unspecifie d F31.9 [facility] [address] [id number] [address] [place] [address] Jul, [facility] [address] [id number] [address] [place] [address] 13 Jul, 2016 Type 2 diabetes mellitus wit h complication E11.8 [facility] [address] [id number] [id number] 15 Jun, 2016 Dental examination Z01.20 [facility] [address] [id number] [address] [place] [address] [id number] 15 Jun, 2016 Encounter for dental examina tion and cleaning without abnormal findings Z01.20 [facility] [address] [id number] [address] [place] [address] 18 Dayron, 2017 Sports physical Z02.5 [facility] [address] [id number] [address] [place] [address] 14 Mar, 2016 Bipolar disorder, in partial remission, most recent episode manic F31.73 and Intermittent explosive disorder in adult F63.81 [facility] [address] [id number] [address] [place] [address] 08 Mar, 2016 [facility] [address] [id number] [address] [place] [address] 06 Mar, 2016 Diabetes E11.9 [facility] [address] [id number] [address] [place] [address] [id number] Feb, Encounter for dental examina tion and cleaning without abnormal findings Z01.20 [facility] [address] [id number] [address] [place] [address] 22 Dec, 2015 Nocturnal hypoxemia G47.34 a nd Encounter for immunization Z23 [facility] [address] [id number] [address] [place] [address] 15 Dec, 2015 [facility] [address] [id number] [address] [place] [address] Dec, [facility] [address] [id number] [address] [place] [address] Dec, Bipolar disorder, unspecifie d F31.9 [facility] [address] [id number] [address] [place] [address] [id number] Oct, Encounter for dental examina tion and cleaning without abnormal findings Z01.20 [facility] [id number] [place] [address] [id number] Oct, Dental examination Z01.20 [facility] [address] [id number] [address] [place] [address] Oct, Diabetes E11.9 [facility] [address] [id number] [address] [place] [address] 05 Oct, 2015 Diabetes E11.9 ; Reactive ai rway disease, mild intermittent, uncomplicated J45.20 and Tobacco abuse Z72.0 [place] [id number] [address] Sep, Bipolar disorder, unspecifie d F31.9 and Depression F32.9 [address] [place] [address] [address] Sep, [place] [address] [address] August, Tinea pedis of both feet B35 .3 and DM w/o complication type II, uncontrolled E11.65 [address] [address] [address] Jul, [address] [address] [address] Jul, [place] [address] [address] Jul, Obstructive sleep apnea G47. 33 [address] [address] [address] Jun, Diabetes E11.9 [address] [address] [address] Jun, [place] [address] [address] Jun, [place] [address] [address] Jun, Bipolar disorder, unspecifie d F31.9 and Mental retardation F79 [address] [address] [address] Apr, [place] [address] [address] Feb, Diabetes E11.9 ; Encounter f or immunization Z23 ; Cough R05 and Nicotine abuse Z72.0 [address] [address] [address] Jan, Bipolar disorder, unspecifie d F31.9 and Diabetes mellitus without mention of complication, type II or unspecified type, uncontrolled 250.02 [facility] [address] [facility] [id number] [address] [place] [address] Jan, [facility] [address] [id number] [address] [place] [address] Dec, Reactive airway disease 493. 90 and Enuresis 788.30 [facility] [address] [id number] [address] [place] [address] Dec, [facility] [address] [id number] [address] [place] [address] Nov, [facility] [address] [id number] [address] [place] [address] Nov, [facility] [address] [address] Nov, Annual physical exam V70.0 ; Urinary incontinence 788.30 ; Diabetes 250.00 and Hypertension 401.9 [facility] [address] [id number] [address] [place] [address] Oct, Diabetes mellitus without me ntion of complication, type II or unspecified type, uncontrolled 250.02 [facility] [address] [id number] [address] [place] [address] Oct, Diabetes mellitus without me ntion of complication, type II or unspecified type, uncontrolled 250.02 [facility] [address] [facility] [id number] [address] [place] [address] Oct, Diabetes mellitus without me ntion of complication, type II or unspecified type, uncontrolled 250.02 [facility] [address] [id number] [address] [place] [address] Oct, [facility] [address] [id number] [address] [place] [address] Oct, [facility] [address] [id number] [address] [place] [address] Oct, Bipolar disorder, unspecifie d 296.80 [facility] [address] [id number] [address] [place] [address] [id number] Sep, Dental examination V72.2 [facility] [address] [id number] [address] [place] [address] August, [facility] [address] [id number] [address] [place] [address] [id number] August, Dental examination V72.2 [facility] [address] [id number] [address] [place] [address] August, [facility] [address] [id number] [address] [place] [phone] Jul, [facility] [address] [id number] [address] [place] [address] Jul, [facility] [address] [id number] [address] [place] [address] Jun, [facility] [address] [id number] [address] [place] [address] Jun, [facility] [address] [id number] [address] [place] [address] Jun, [facility] [address] [id number] [address] [place] [address] Jun, [facility] [address] [id number] [address] [place] [address] May, [facility] [address] [id number] [address] [place] [address] May, [facility] [address] [id number] [address] [place] [address] May, [facility] [address] [id number] [address] [place] [address] May, [facility] [address] [id number] [address] [place] [address], [place] [address] 16 May, 2014 [facility] [address] [id number] [address] [place] [address], [place] [address] May, 2014 [facility] [address] [id number] [address] [place] [address], [place] [address] 16 May, 2014 [facility] [address] [id number] [address] [place] [address], [place] [address] 16 May, 2014 [facility] [address] [id number] [address] [place] [address], [place] [address] 16 May, 2014 [facility] [address] [id number] [address] [place] [address], [place] [address] May, 2014 [facility] [address] [id number] [address] [place] [address], [place] [address] May, 2014 [facility] [address] [id number] [address] [place] [address], [place] [address] May, 2014 [facility] [address] [id number] [address] [place] [address], [place] [address] May, 2014 [facility] [address] [id number] [address] [place] [address], [place] [address] May, 2014 [facility] [address] [id number] [address] [place] [address], [place] [address] May, 2014 [facility] [address] [id number] [address] [place] [address] Apr, [facility] [address] [id number] [address] [place] [address], [place] [address] Apr, [facility] [address] [id number] [address] [place] [address], [place] [address] Apr, [facility] [address] [id number] [address] [place] [address], [place] [address] Apr, [facility] [address] [id number] [address] [place] [address], [place] [address] Apr, [facility] [address] [id number] [address] [place] [address], [place] [address] Apr, [facility] [address] [id number] [address] [place] [address], [place] [address] Apr, [facility] [address] [id number] [address] [place] [address], [place] [address] Apr, [facility] [address] [id number] [address] [place] [address], [place] [address] Apr, [facility] [address] [id number] [address] [place] [address], [place] [address] Apr, [facility] [address] [id number] [address] [place] [address], [place] [address] Apr, [facility] [address] [id number] [address] [place] [address], [place] [address] Apr, [facility] [address] [id number] [address] [place] [address], [place] [address] Mar, [facility] [address] [id number] [address] [place] [address], [place] [address] Mar, [facility] [address] [id number] [address] [place] [address], [place] [id number] Mar, [facility] [address] [id number] [address] [place] [address], [place] [id number] Mar, [facility] [address] [id number] [address] [place] [address], [place] [address] Mar, [facility] [address] [id number] [address] [place] [address], [place] [id number] Mar, [facility] [address] [id number] [address] [place] [address], [place] [id number] Feb, [facility] [address] [id number] [address] [place] [address], [place] [address] Feb, [facility] [address] [id number] [address] [place] [address], [place] [address] Feb, [facility] [address] [id number] [address] [place] [address], [place] [address] Feb, [facility] [address] [id number] [address] [place] [address], [place] [address] 14 Jan, 2014 [facility] [address] [id number] [address] [place] [address], [place] [id number] 14 Jan, 2014 [facility] [address] [id number] [address] [place] [address], [place] [id number] 14 Jan, 2014 [facility] [address] [id number] [address] [place] [address], [place] [address] 14 Jan, 2014 [facility] [address] [id number] [address] [place] [address], [place] [id number] 22 Dec, 2013 [facility] [address] [id number] [address] [place] [address], [place] [id number] 22 Dec, 2013 [facility] [address] [id number] [address] [place] [address], [place] [id number] 15 Dec, 2013 [facility] [address] [id number] [address] [place] [address], [place] [id number] 15 Dec, 2013 [facility] [address] [id number] [address] [place] [address], [place] [address] Nov, [facility] [address] [id number] [address] [place] [address], [place] [address] Nov, [facility] [address] [id number] [address] [place] [address], [place] [address] Nov, [facility] [address] [id number] [address] [place] [address], [place] [address] Nov, [facility] [address] [id number] [address] [place] [address], [place] [address] Nov, [facility] [address] [id number] [address] [place] [address], [place] [address] Nov, [facility] [address] [id number] [address] [place] [address], [place] [address] Nov, [facility] [address] [id number] [address] [place] [address], [place] [address] Oct, [facility] [address] [id number] [address] [place] [address], [place] [address] Oct, [facility] [address] [id number] [address] [place] [address], [place] [address] Oct, [facility] [address] [id number] [address] [place] [address], [place] [address] Oct, [facility] [address] [id number] [address] [place] [address], [place] [address] Oct, [facility] [address] [id number] [address] [place] [address], [place] [address] Oct, [facility] [address] [id number] [address] [place] [address], [place] [address] Oct, [facility] [address] [id number] [address] [place] [address], [place] [address] Sep, [facility] [address] [id number] [address] [place] [address], [place] [address] Sep, [facility] [address] [id number] [address] [place] [address], [place] [address] Sep, [facility] [address] [id number] [address] [place] [address], [place] [address] Sep, [facility] [address] [id number] [address] [place] [address], [place] [address] Sep, [facility] [address] [id number] [address] [place] [address], [place] [address] Jul, [facility] [address] [id number] [address] [place] [address], [place] [address] Jul, [facility] [address] [id number] [address] [place] [address] Jul, [facility] [address] [id number] [address] [place] [address] Jul, [facility] [address] [id number] [address] [place] [address] Jul, [facility] [address] [id number] [address] [place] [address], [place] [address] Jul, [facility] [address] [id number] [address] [place] [address], [place] [address] Jul, [facility] [address] [id number] [address] [place] [address], [place] [address] Jul, [facility] [address] [id number] [address] [place] [address], [place] [address] Jul, [facility] [address] [id number] [address] [place] [address], [place] [address] Jul, [facility] [address] [id number] [address] [place] [address], [place] [address] Jul, [facility] [address] [id number] [address] [place] [address], [place] [address] Jul, [facility] [address] [id number] [address] [place] [address], [place] [address] Jun, [facility] [address] [id number] [address] [place] [address], [place] [address] Jun, [facility] [address] [id number] [address] [place] [address], [place] [address] Jun, [facility] [address] [id number] [address] [place] [address], [place] [address] Jun, [facility] [address] [id number] [address] [place] [address], [place] [address] Jun, [facility] [address] [id number] [address] [place] [address], [place] [address] Jun, [facility] [address] [id number] [address] [place] [address], [place] [address] Jun, [facility] [address] [id number] [address] [place] [address], [place] [address] Jun, [facility] [address] [id number] [address] [place] [address], [place] [address] May, [facility] [address] [id number] [address] [place] [address], [place] [address] May, [facility] [address] [id number] [address] [place] [address], [place] [address] May, [facility] [address] [id number] [address] [place] [address], [place] [address] May, [facility] [address] [id number] [address] [place] [address], [place] [address] May, [facility] [address] [id number] [address] [place] [address], [place] [address] May, [facility] [address] [id number] [address] [place] [address], [place] [address] May, [facility] [address] [id number] [address] [place] [address], [place] [address] May, [facility] [address] [id number] [address] [place] [address], [place] [address] Apr, [facility] [address] [id number] [address] [place] [address], [place] [address] Apr, [facility] [address] [id number] [address] [place] [address], [place] [address] Apr, [facility] [address] [id number] [address] [place] [address], [place] [address] Apr, [facility] [address] [id number] [address] [place] [address], [place] [address] Mar, [facility] [address] [id number] [address] [place] [address], [place] [address] Mar, [facility] [address] [id number] [address] [place] [address], [place] [address] Mar, [facility] [address] [id number] [address] [place] [address], [place] [address] Feb, [facility] [address] [id number] [address] [place] [address], [place] [address] Feb, [facility] [address] [id number] [address] [place] [address], [place] [address] Feb, [facility] [address] [id number] [address] [place] [address], [place] [address] Feb, [facility] [address] [id number] [address] [place] [address], [place] [address] Feb, [facility] [address] [id number] [address] [place] [address], [place] [address] Feb, [facility] [address] [id number] [address] [place] [address], [place] [address] Jan, [facility] [address] [id number] [address] [place] [address], [place] [address] Jan, [facility] [address] [id number] [address] [place] [address], [place] [address] Jan, [facility] [address] [id number] [address] [place] [address], [place] [address] Jan, [facility] [address] [id number] [address] [place] [address], [place] [address] Jan, [facility] [address] [id number] [address] [place] [address], [place] [address] Jan, [facility] [address] [id number] [address] [place] [address], [place] [address] Jan, [facility] [address] [id number] [address] [place] [address], [place] [address] Dec, [facility] [address] [id number] [address] [place] [address], [place] [address] 16 Dec, 2012 [facility] [address] [id number] [address] [place] [address], [place] [address] Dec, [facility] [address] [id number] [address] [place] [address], [place] [address] Dec, [facility] [address] [id number] [address] [place] [address], [place] [address] Nov, [facility] [address] [id number] [address] [place] [address], [place] [address] Nov, [facility] [address] [id number] [address] [place] [address], [place] [address] Nov, [facility] [address] [id number] [address] [place] [address], [place] [address] Nov, [facility] [address] [id number] [address] [place] [address], [place] [address] Nov, [facility] [address] [id number] [address] [place] [address], [place] [address] Nov, [facility] [address] [id number] [address] [place] [address], [place] [address] Nov, [facility] [address] [id number] [address] [place] [address], [place] [address] Oct, [facility] [address] [id number] [address] [place] [address], [place] [address] Oct, [facility] [address] [id number] [address] [place] [address], [place] [address] Oct, [facility] [address] [id number] [address] [place] [address], [place] [address] Oct, [facility] [address] [id number] [address] [place] [address], [place] [address] Oct, [facility] [address] [id number] [address] [place] [address], [place] [address] Oct, [facility] [address] [id number] [address] [place] [address], [place] [address] Oct, [facility] [address] [id number] [address] [place] [address], [place] [address] Oct, [facility] [address] [id number] [address] [place] [address], [place] [address] Sep, [facility] [address] [id number] [id number] August, [facility] [address] [id number] [address] [place] [address], [place] [address] August, [facility] [address] [id number] [address] [place] [address], [place] [address] Jul, [facility] [address] [id number] [address] [place] [address], [place] [address] Jul, [facility] [address] [id number] [address] [place] [address], [place] [address] Jul, [facility] [address] [id number] [address] [place] [address], [place] [address] Jul, [facility] [address] [id number] [address] [place] [address], [place] [address] Jul, [facility] [address] [id number] [address] [place] [address], [place] [address] 17 Jul, 2012 [facility] [address] [id number] [address] [place] [address], [place] [address] 16 Jul, 2012 [facility] [address] [id number] [address] [place] [address], [place] [address] Jun, [facility] [address] [id number] [address] [place] [address], [place] [address] Jun, [facility] [address] [id number] [address] [place] [address], [place] [address] Jun, [facility] [address] [id number] [address] [place] [address], [place] [address] Jun, [facility] [address] [id number] [address] [place] [address], [place] [address] Jun, [facility] [address] [id number] [address] [place] [address], [place] [address] May, [facility] [address] [id number] [address] [place] [address], [place] [address] 18 May, 2012 [facility] [address] [id number] [address] [place] [address], [place] [address] May, [facility] [address] [id number] [address] [place] [address], [place] [address] 15 Apr, 2012 [facility] [address] [id number] [address] [place] [address], [place] [address] 14 Apr, 2012 [facility] [address] [id number] [address] [place] [address], [place] [address] Apr, [facility] [address] [id number] [address] [place] [address], [place] [address] Mar, [facility] [address] [id number] [address] [place] [address], [place] [address] Mar, [facility] [address] [id number] [address] [place] [address], [place] [address] Mar, [facility] [address] [id number] [address] [place] [address], [place] [address] Mar, [facility] [address] [id number] [address] [place] [address], [place] [address] Mar, [facility] [address] [id number] [address] [place] [address], [place] [address] Mar, [facility] [address] [id number] [address] [place] [address], [place] [address] 02 Feb, 2012 [facility] [address] [id number] [address] [place] [address], [place] [address] Feb, [facility] [address] [id number] [address] [place] [address], [place] [address] Jan, [facility] [address] [id number] [address] [place] [address], [place] [address] Jan, [facility] [address] [id number] [address] [place] [address], [place] [address] Dec, [facility] [address] [id number] [address] [place] [address], [place] [address] Nov, [facility] [address] [id number] [address] [place] [address], [place] [address] Nov, [facility] [address] [id number] [address] [place] [address], [place] [address] Nov, [facility] [address] [id number] [address] [place] [address], [place] [address] Nov, [facility] [address] [id number] [address] [place] [address], [place] [address] Oct, [facility] [address] [id number] [address] [place] [address], [place] [address] Oct, [facility] [address] [id number] [address] [place] [address], [place] [address] Oct, [facility] [address] [id number] [address] [place] [address], [place] [address] Sep, [facility] [address] [id number] [address] [place] [address], [place] [address] Sep, [facility] [address] [id number] [address] [place] [address], [place] [address] Sep, [facility] [address] [id number] [address] [place] [address], [place] [address] August, [facility] [address] [id number] [address] [place] [address], [place] [address] August, [facility] [address] [id number] [address] [place] [address], [place] [address] 27 Jul, 2011 [facility] [address] [id number] [address] [place] [address], [place] [address] 24 Jul, 2011 [facility] [address] [id number] [address] [place] [address], [place] [address] 17 Jul, 2011 [facility] [address] [id number] [address] [place] [address], [place] [address] Jul, [facility] [address] [id number] [address] [place] [address], [place] [address] Jun, [facility] [address] [id number] [address] [place] [address], [place] [address] May, [facility] [address] [id number] [address] [place] [address], [place] [address] Apr, [facility] [address] [id number] [address] [place] [address], [place] [address] Apr, [facility] [address] [id number] [address] [place] [address], [place] [address] Apr, [facility] [address] [id number] [address] [place] [address], [place] [address] Apr, [facility] [address] [id number] [address] [place] [address], [place] [address] Apr, [facility] [address] [id number] [address] [place] [address], [place] [address] Apr, [facility] [address] [id number] [address] [place] [address], [place] [address] Mar, [facility] [address] [id number] [address] [place] [address], [place] [address] Mar, [facility] [address] [id number] [address] [place] [address], [place] [address] Feb, [facility] [address] [id number] [address] [place] [address], [place] [address] Feb, [facility] [address] [id number] [address] [place] [address], [place] [address] 17 Feb, 2011 [facility] [address] [id number] [address] [place] [address], [place] [address] Feb, [facility] [address] [id number] [address] [place] [address], [place] [address] Jan, [facility] [address] [id number] [address] [place] [address], [place] [address] Jan, [facility] [address] [id number] [address] [place] [address], [place] [address] Jan, [facility] [address] [id number] [address] [place] [address], [place] [address] Jan, [facility] [address] [id number] [address] [place] [address], [place] [address] Nov, [facility] [address] [id number] [address] [place] [address], [place] [address] Mar, [facility] [address] [id number] [address] [place] [address], [place] [id number] Mar, [facility] [address] [id number] [address] [place] [id number] 30 Feb, 2010 [facility] [address] [id number] [address] [place] [address], [place] [id number] Feb, [facility] [address] [id number] [address] [place] [id number] Jan, [facility] [address] [id number] [address] [place] [address], [place] [id number] Jan, [facility] [address] [id number] [address] [place] [id number] Sep, [facility] [address] [id number] [address] [place] [address], [place] [id number] 16 May, 2009 [facility] [address] [id number] [address] [place] [id number] Apr, [facility] [address] [id number] [address] [place] [id number] Mar, [facility] [address] [id number] [address] [place] [id number] 15 Feb, 2009 [facility] [address] [id number] [address] [place] [id number] Feb, [facility] [address] [id number] [address] [place] [id number] Feb, [facility] [address] [id number] [address] [place] [id number] 22 Jan, 2009 [facility] [address] [id number] [address] [place] [id number] Jan, [facility] [address] [id number] [address] [place] [id number] Jan, [facility] [address] [id number] [address] [place] [id number] Jan, [facility] [address] [id number] [address] [place] [id number] August, IMMUNIZATIONS No Known Immunizations SOCIAL HISTORY [...] age 6 Hospitalization History surgery Hospitalization History [facility], inhi tient treatment few times for BH
--- OUTSIDE RECORDS SUMMARY | 2019-09-29 10:45 | XMS REPORT ---
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 Active 30079593 Problem Open-angle glaucoma of both eyes, unspecified glaucoma stage, unspecified open-angle glaucoma type H40.10X0 Acti ve 74328968 Problem Adjustment disorder, unspecified type F43.20 Active 11377176 Problem Obstructive sleep apnea G47.33 Active 82633073 Problem Hypertensive retinopathy of both eyes H35.033 Active 5339243 Problem Type 2 diabetes mellitus with complication E11.8 Active 23298351 Problem Essential hypertension I10 Active 12355568 Problem Diabetes E11.9 Active 58724323 Problem Bipolar disorder, in partial remission, most rec ent episode manic F31.73 Active 54645609 Problem Intermittent explosive disorder in adult F63.81 Active 67362885 Problem Other diabetic neurological complication associated with type 2 diabetes mellitus E11.49 Active 204874954 Problem Depression F32.9 Active 59166131 Problem Neuropathy G62.9 Active 077394304 Problem Intermittent explosive disorder F63.81 Active 00362555 Problem Bipolar disorder, unspecified F31.9 Active 92404819 Problem Mild intellectual disability F70 A ctive 11475428 Problem Reactive airway disease, mild intermittent, uncomplicated J45.20 Active 781170050 Problem Gastroesophageal reflux disease without esophagitis K21.9 Active [id number] ALLERGIES No Information ENCOUNTERS Encounter Location Date Diagnosis [facility] [address] [facility] [id number] [address] [place] [address] 04 Jan, 2019 [facility] [address] [facility] [id number] [address] [place] [address] Dec, [facility] [address] [facility] [id number] [address] [place] [phone] Dec, [facility] [address] [id number] [place] [phone] Nov, [facility] [address] [facility] [id number] [address] [place] [id number] Oct, OUTREACH [facility] [id number] [place] [phone] Oct, Oral health maintenance stat us requiring routine preventive dental care K08.9 [facility] [address] [facility] [id number] [address] [place] [address] August, Intermittent explosive disor salvatore in adult F63.81 ; Bipolar disorder, unspecified F31.9 and Mild intellectual disability F70 [facility] [address] [id number] [address] [place] [address] [id number] August, Dental caries K02.9 [facility] [address] [facility] [id number] [address] [place] [address] Jul, Onychomycosis B35.1 ; Other diabetic neurological complication associated with type 2 diabetes mellitus E11.49 and Tinea pedis of both feet B35.3 [facility] [address] [id number] [address] [place] [address] [id number] Jul, Caries K02.9 [facility] [address] [facility] [id number] [address] [place] [address] Jul, Type 2 diabetes mellitus wit h complication E11.8 ; Tobacco abuse Z72.0 and Bipolar disorder, unspecified F31.9 [facility] [address] [id number] [address] [place] [phone] Jun, [facility] [address] [id number] [address] [place] [address] [id number] Jun, Dental examination Z01.20 an d Oral health maintenance status requiring routine preventive dental care K08.9 [facility] [address] [facility] [id number] [address] [place] [address] 11 May, 2018 Bilateral impacted cerumen H 61.23 [facility] [address] [facility] [id number] [address] [place] [address] Apr, Bipolar disorder, unspecifie d F31.9 ; Intermittent explosive disorder in adult F63.81 ; Type 2 diabetes mellitus with complication E11.8 ; Tobacco abuse Z72.0 and Colon cancer screening Z12.11 [place] [address] [facility] [id number] [address] [place] [address] Apr, Onychomycosis B35.1 and Othe r diabetic neurological complication associated with type 2 diabetes mellitus E11.49 [place] [address] [facility] [id number] [address] [place] [address] Apr, Intermittent explosive disor salvatore in adult F63.81 ; Bipolar disorder, unspecified F31.9 and Mild intellectual disability F70 [place] [address] [place] [id number] [address] [place] [address] Mar, Diabetes E11.9 [facility] [address] [facility] [id number] [address] [place] [phone] Jan, Encounter for immunization Z 23 [facility] [address] [facility] [id number] [address] [place] [address] Jan, Tinea pedis of both feet B35 .3 ; Other diabetic neurological complication associated with type 2 diabetes mellitus E11.[address] [facility] [address] [facility] [id number] [address] [place] [address] Nov, Type 2 diabetes mellitus wit h complication E11.8 [facility] [address] [facility] [id number] [address] [place] [address] Nov, [facility] [address] [facility] [id number] [address] [place] [address] Oct, Intermittent explosive disor salvatore in adult F63.81 ; Bipolar disorder, unspecified F31.9 and Mild intellectual disability F70 [facility] [address] [id number] [address] [place] [address] Oct, [facility] [address] [id number] [address] [place] [address] [id number] 11 Oct, [address] [facility] [address] [id number] [address] [place] [id number] 06 Oct, 2017 Onychomycosis B35.1 and Othe r diabetic neurological complication associated with type [address] [facility] [address] [id number] [address] [place] [phone] Sep, Type 2 diabetes mellitus wit h complication E11.8 and Colon cancer screening Z12.11 [facility] [address] [id number] [address] [place] [address] 18 Sep, 2017 Type 2 diabetes mellitus wit h complication E11.8 ; Colon cancer screening Z12.[address] [facility] [address] [id number] [address] [place] [address] August, Diabetes E11.9 [facility] [address] [id number] [address] [place] [address] [id number] Jul, Dental examination Z01.20 [facility] [address] [id number] [address] [place] [phone] 27 May, 2017 Mild intellectual disability F70 [facility] [address] [id number] [address] [place] [phone] 07 May, 2017 Mild intellectual disability F70 ; High risk medication use Z79.899 ; Intermittent explosive disorder in adult F63.81 and Bipolar disorder, unspecified F31.9 [facility] [address] [id number] [address] [place] [address] May, [facility] [address] [facility] [id number] [address] [place] [phone] May, [facility] [address] [id number] [address] [place] [address] Apr, Type 2 diabetes mellitus wit h complication E11.8 ; Mild intellectual disability F70 ; Gastroesophageal reflux disease without esophagitis K21.9 ; Reactive airway disease, mild intermittent, uncomplicated J45.20 and Tobacco abuse Z72.0 [facility] [address] [facility] [id number] [address] [place] [address] Apr, High risk medication use Z79 .899 ; Mild intellectual disability F70 ; Intermittent explosive disorder in adult F63.81 and Bipolar disorder, unspecified F31.9 [facility] [address] [id number] [place] [address] [id number] Mar, Dental examination Z01.20 [facility] [address] [id number] [place] [address] [id number] Mar, Encounter for dental exam an d cleaning w/o abnormal findings Z01.20 [facility] [address] [facility] [id number] [address] [place] [phone] 12 Jan, 2017 [facility] [address] [id number] [address] [place] [phone] Jan, [facility] [address] [facility] [id number] [address] [place] [address] Jan, Mild intellectual disability F70 ; Bipolar disorder, unspecified F31.9 and Intermittent explosive disorder in adult F63.81 [facility] [address] [id number] [address] [place] [phone] 02 Jan, 2017 Diabetes E11.9 [facility] [address] [id number] [address] [place] [address] [id number] 13 Dec, 2016 Encounter for dental examina tion and cleaning without abnormal findings Z01.20 [facility] [address] [id number] [address] [place] [id number] 12 Dec, 2016 Bipolar disorder, unspecifie d F31.9 ; Intermittent explosive disorder in adult F63.81 and Mild intellectual disability F70 [facility] [address] [id number] [address] [place] [phone] Nov, Diabetes E11.9 [facility] [address] [id number] [address] [place] [address] Nov, [facility] [address] [id number] [address] [place] [address] Nov, Diabetes E11.9 and Colon can cer screening Z12.[id number] [place] [address] [id number] Sep, Dental examination Z01.20 [facility] [address] [id number] [address] [place] [address] [id number] Sep, Encounter for dental examina tion and cleaning without abnormal findings Z01.20 [facility] [address] [id number] [address] [place] [address] Sep, Bipolar disorder, unspecifie d F31.9 [facility] [address] [id number] [address] [place] [phone] Sep, Bipolar disorder, unspecifie d F31.9 [facility] [address] [id number] [address] [place] [phone] 26 Jul, 2016 [facility] [address] [id number] [address] [place] [phone] Jul, Type 2 diabetes mellitus wit h complication E11.[address] [id number] [id number] 15 Jun, 2016 Dental examination Z01.20 [facility] [address] [id number] [address] [place] [address] [id number] 15 Jun, 2016 Encounter for dental examina tion and cleaning without abnormal findings Z01.20 [facility] [address] [id number] [address] [place] [phone] 18 Apr, [address] [facility] [address] [id number] [address] [place] [phone] 14 Mar, 2016 Bipolar disorder, in partial remission, most recent episode manic F31.73 and Intermittent explosive disorder in adult F63.81 [facility] [address] [id number] [address] [place] [phone] 08 Mar, 2016 [facility] [address] [id number] [address] [place] [phone] 06 Mar, 2016 Diabetes E11.9 [facility] [address] [id number] [address] [place] [address] [id number] Feb, Encounter for dental examina tion and cleaning without abnormal findings Z01.20 [facility] [address] [id number] [address] [place] [phone] 22 Dec, 2015 Nocturnal hypoxemia G47.34 a nd Encounter for immunization Z23 [facility] [address] [id number] [address] [place] [phone] [address], [address] [facility] [address] [id number] [address] [place] [phone] Dec, [facility] [address] [facility] [id number] [address] [place] [phone] Dec, Bipolar disorder, unspecifie d F31.9 [facility] [address] [id number] [address] [place] [address] [id number] Oct, Encounter for dental examina tion and cleaning without abnormal findings Z01.20 [place] [id number] [facility] [id number] [place] [address] [id number] Oct, Dental examination Z01.20 [facility] [address] [id number] [address] [place] [phone] Oct, Diabetes E11.9 [facility] [address] [facility] [id number] [address] [place] [phone] 05 Oct, 2015 Diabetes E11.9 ; Reactive ai rway disease, mild intermittent, uncomplicated J45.20 and Tobacco abuse Z72.0 [facility] [address] [id number] [address] [place] [phone] Sep, Bipolar disorder, unspecifie d F31.9 and Depression F32.9 [place] [address] [id number] Sep, [place] [address] [place] [id number] [place] [address] August, Tinea pedis of both feet B35 .3 and DM w/o complication type II, uncontrolled E11.65 [place] [id number] [place] [address] Jul, [place] [address] [address] Jul, [place] [address] [address] Jul, Obstructive sleep apnea G47. 33 [place] [address] [address] Jun, Diabetes E11.9 [place] [address] [phone] Jun, [place] [address] [address] Jun, [place] [address] [address] Jun, Bipolar disorder, unspecifie d F31.9 and Mental retardation F79 [place] [address] [address] Apr, [place] [address] [address] Feb, Diabetes E11.9 ; Encounter f or immunization Z23 ; Cough R05 and Nicotine abuse Z72.0 [place] [address] [place] [id number] [address] [place] [address] Jan, Bipolar disorder, unspecifie d F31.9 and Diabetes mellitus without mention of complication, type II or unspecified type, uncontrolled 250.02 [facility] [address] [address] Jan, [facility] [address] [address] Dec, Reactive airway disease 493. 90 and Enuresis 788.30 [place] [address] [address] Dec, [place] [address] [address] Nov, [place] [address] [address] Nov, [place] [address] [address] Nov, Annual physical exam V70.0 ; Urinary incontinence 788.30 ; Diabetes 250.00 and Hypertension 401.9 [place] [address] [address] Oct, Diabetes mellitus without me ntion of complication, type II or unspecified type, uncontrolled 250.02 [place] [address] [address] Oct, Diabetes mellitus without me ntion of complication, type II or unspecified type, uncontrolled 250.02 [place] [address] [address] Oct, Diabetes mellitus without me ntion of complication, type II or unspecified type, uncontrolled 250.02 [place] [address] [address] Oct, [place] [address] [address] Oct, [place] [address] [address] Oct, Bipolar disorder, unspecifie d 296.80 [facility] [address] [id number] [address] [place] [address] [id number] Sep, Dental examination V72.2 [facility] [address] [id number] [address] [place] [address] August, [facility] [address] [id number] [address] [place] [address] [id number] August, Dental examination V72.2 [facility] [address] [id number] [address] [place] [phone] August, [facility] [address] [id number] [address] [place] [phone] Jul, [facility] [address] [id number] [address] [place] [address] Jul, [facility] [address] [id number] [address] [place] [phone] Jun, [facility] [address] [id number] [address] [place] [phone] Jun, [facility] [address] [id number] [address] [place] [phone] Jun, [facility] [address] [id number] [address] [place] [phone] Jun, [facility] [address] [id number] [address] [place] [address] May, [facility] [address] [id number] [address] [place] [phone] May, [facility] [address] [id number] [address] [place] [address] May, [facility] [address] [id number] [address] [place] [phone] May, [facility] [address] [id number] [address] [place] [phone] May, [facility] [address] [id number] [address] [place] [address], [place] [address] 16 May, 2014 [facility] [address] [id number] [address] [place] [address], [place] [address] May, 2014 [facility] [address] [id number] [address] [place] [address], [place] [address] 16 May, 2014 [facility] [address] [id number] [address] [place] [address], [place] [address] May, 2014 [facility] [address] [id number] [address] [place] [address], [place] [address] May, 2014 [facility] [address] [id number] [address] [place] [address], [place] [address] May, 2014 [facility] [address] [id number] [address] [place] [address], [place] [address] May, 2014 [facility] [address] [id number] [address] [place] [address], [place] [address] May, 2014 [facility] [address] [id number] [address] [place] [address], [place] [address] May, 2014 [facility] [address] [id number] [address] [place] [address], [place] [address] May, 2014 [facility] [address] [id number] [address] [place] [address], [place] [address] Apr, [facility] [address] [id number] [address] [place] [address], [place] [address] Apr, [facility] [address] [id number] [address] [place] [address], [place] [address] Apr, [facility] [address] [id number] [address] [place] [address], [place] [address] Apr, [facility] [address] [id number] [address] [place] [address], [place] [address] Apr, [facility] [address] [id number] [address] [place] [address], [place] [address] Apr, [facility] [address] [id number] [address] [place] [address], [place] [address] Apr, [facility] [address] [id number] [address] [place] [address], [place] [address] Apr, [facility] [address] [id number] [address] [place] [address], [place] [address] Apr, [facility] [address] [id number] [address] [place] [address], [place] [address] Apr, [facility] [address] [id number] [address] [place] [address], [place] [address] Apr, [facility] [address] [id number] [address] [place] [address], [place] [address] Apr, [facility] [address] [id number] [address] [place] [address], [place] [address] Mar, [facility] [address] [id number] [address] [place] [address], [place] [address] Mar, [facility] [address] [id number] [address] [place] [address], [place] [address] Mar, [facility] [address] [id number] [address] [place] [address], [place] [address] Mar, [facility] [address] [id number] [address] [place] [address], [place] [address] Mar, [facility] [address] [id number] [address] [place] [address], [place] [address] Mar, [facility] [address] [id number] [address] [place] [address], [place] [address] Feb, [facility] [address] [id number] [address] [place] [address], [place] [address] Feb, [facility] [address] [id number] [address] [place] [address], [place] [address] Feb, [facility] [address] [id number] [address] [place] [address], [place] [address] Feb, [facility] [address] [id number] [address] [place] [address], [place] [address] 14 Jan, 2014 [facility] [address] [id number] [address] [place] [address], [place] [address] 14 Jan, 2014 [facility] [address] [id number] [address] [place] [address], [place] [address] 14 Jan, 2014 [facility] [address] [id number] [address] [place] [address], [place] [address] 14 Jan, 2014 [facility] [address] [id number] [address] [place] [address], [place] [address] 22 Dec, 2013 [facility] [address] [id number] [address] [place] [address], [place] [address] 22 Dec, 2013 [facility] [address] [id number] [address] [place] [address], [place] [address] 15 Dec, 2013 [facility] [address] [id number] [address] [place] [address], [place] [address] 15 Dec, 2013 [facility] [address] [id number] [address] [place] [address], [place] [address] Nov, [facility] [address] [id number] [address] [place] [address], [place] [address] Nov, [facility] [address] [id number] [address] [place] [address], [place] [address] Nov, [facility] [address] [id number] [address] [place] [address], [place] [address] Nov, [facility] [address] [id number] [address] [place] [address], [place] [address] Nov, [facility] [address] [id number] [address] [place] [address], [place] [address] Nov, [facility] [address] [id number] [address] [place] [address], [place] [address] Nov, [facility] [address] [id number] [address] [place] [address], [place] [address] Oct, [facility] [address] [id number] [address] [place] [address], [place] [address] Oct, [facility] [address] [id number] [address] [place] [address], [place] [address] Oct, [facility] [address] [id number] [address] [place] [address], [place] [address] Oct, [facility] [address] [id number] [address] [place] [address], [place] [address] Oct, [facility] [address] [id number] [address] [place] [address], [place] [address] Oct, [facility] [address] [id number] [address] [place] [address], [place] [address] Oct, [facility] [address] [id number] [address] [place] [address], [place] [address] Sep, [facility] [address] [id number] [address] [place] [address], [place] [address] Sep, [facility] [address] [id number] [address] [place] [address], [place] [address] Sep, [facility] [address] [id number] [address] [place] [address], [place] [address] Sep, [facility] [address] [id number] [address] [place] [address], [place] [address] Sep, [facility] [address] [id number] [address] [place] [address], [place] [address] Jul, [facility] [address] [id number] [address] [place] [address], [place] [address] Jul, [facility] [address] [id number] [address] [place] [address], [place] [address] Jul, [facility] [address] [id number], [place] [address] Jul, [facility] [address] [id number] [facility] [place] [address] Jul, [facility] [address] [id number] [facility] [place] [address] Jul, [facility] [address] [id number] [address] [place] [address], [place] [address] Jul, [facility] [address] [id number] [facility] [place] [address] Jul, [facility] [address] [id number] [address] [place] [address], [place] [address] Jul, [facility] [address] [id number] [address] [place] [address], [place] [address] Jul, [facility] [address] [id number] [address] [place] [address], [place] [address] Jul, [facility] [address] [id number] [address] [place] [address], [place] [address] Jul, [facility] [address] [id number] [address] [place] [address], [place] [address] Jun, [facility] [address] [id number] [address] [place] [address], [place] [address] Jun, [facility] [address] [id number] [address] [place] [address], [place] [address] Jun, [facility] [address] [id number] [address] [place] [address], [place] [address] Jun, [facility] [address] [id number] [address] [place] [address], [place] [address] Jun, [facility] [address] [id number] [address] [place] [address], [place] [address] Jun, [facility] [address] [id number] [address] [place] [address], [place] [address] Jun, [facility] [address] [id number] [facility] [place] [address] Jun, [facility] [address] [id number] [address] [place] [address], [place] [address] May, [facility] [address] [id number] [address] [place] [address], [place] [address] May, [facility] [address] [id number] [address] [place] [address], [place] [address] May, [facility] [address] [id number] [address] [place] [address], [place] [address] May, [facility] [address] [id number] [address] [place] [address], [place] [address] May, [facility] [address] [id number] [address] [place] [address], [place] [address] May, [facility] [address] [id number] [address] [place] [address], [place] [address] May, [facility] [address] [id number] [address] [place] [address], [place] [address] May, [facility] [address] [id number] [address] [place] [address], [place] [address] Apr, [facility] [address] [id number] [address] [place] [address], [place] [address] Apr, [facility] [address] [id number] [address] [place] [address], [place] [address] Apr, [facility] [address] [id number] [address] [place] [address], [place] [address] Apr, [facility] [address] [id number] [address] [place] [address], [place] [address] Mar, [facility] [address] [id number] [address] [place] [address], [place] [address] Mar, [facility] [address] [id number] [address] [place] [address], [place] [address] Mar, [facility] [address] [id number] [address] [place] [address], [place] [address] Feb, [facility] [address] [id number] [address] [place] [address], [place] [address] Feb, [facility] [address] [id number] [address] [place] [address], [place] [address] Feb, [facility] [address] [id number] [address] [place] [address], [place] [address] Feb, [facility] [address] [id number] [address] [place] [address], [place] [address] Feb, [facility] [address] [id number] [address] [place] [address], [place] [address] Feb, [facility] [address] [id number] [address] [place] [address], [place] [address] Jan, [facility] [address] [id number] [address] [place] [address], [place] [address] Jan, [facility] [address] [id number] [address] [place] [address], [place] [address] Jan, [facility] [address] [id number] [address] [place] [address], [place] [address] Jan, [facility] [address] [id number] [address] [place] [address], [place] [address] Jan, [facility] [address] [id number] [address] [place] [address], [place] [address] Jan, [facility] [address] [id number] [address] [place] [address], [place] [address] Jan, [facility] [address] [id number] [address] [place] [address], [place] [address] 25 Dec, 2012 [facility] [address] [id number] [address] [place] [address], [place] [address] Dec, [facility] [address] [id number] [address] [place] [address], [place] [address] Dec, [facility] [address] [id number] [address] [place] [address], [place] [address] Dec, [facility] [address] [id number] [address] [place] [address], [place] [address] Nov, [facility] [address] [id number] [address] [place] [address], [place] [address] Nov, [facility] [address] [id number] [address] [place] [address], [place] [address] Nov, [facility] [address] [id number] [address] [place] [address], [place] [address] Nov, [facility] [address] [id number] [address] [place] [address], [place] [address] Nov, [facility] [address] [id number] [address] [place] [address], [place] [address] Nov, [facility] [address] [id number] [address] [place] [address], [place] [address] Nov, [facility] [address] [id number] [address] [place] [address], [place] [address] Oct, [facility] [address] [id number] [address] [place] [address], [place] [address] Oct, [facility] [address] [id number] [address] [place] [address], [place] [address] Oct, [facility] [address] [id number] [address] [place] [address], [place] [address] Oct, [facility] [address] [id number] [address] [place] [address], [place] [address] Oct, [facility] [address] [id number] [address] [place] [address], [place] [address] Oct, [facility] [address] [id number] [address] [place] [address], [place] [address] Oct, [facility] [address] [id number] [address] [place] [address], [place] [address] Oct, [facility] [address] [id number] [address] [place] [address], [place] [address] Sep, [id number] [address] [id number] [place] [id number] August, [facility] [address] [id number] [address] [place] [address], [place] [address] August, [facility] [address] [id number] [address] [place] [address], [place] [address] Jul, [facility] [address] [id number] [address] [place] [address], [place] [address] Jul, [facility] [address] [id number] [address] [place] [address], [place] [address] Jul, [facility] [address] [id number] [address] [place] [address], [place] [address] Jul, [facility] [address] [id number] [address] [place] [address], [place] [address] Jul, [facility] [address] [id number] [address] [place] [address], [place] [address] Jul, [facility] [address] [id number] [address] [place] [address], [place] [address] 16 Jul, [address] [facility] [address] [id number] [address] [place] [address], [place] [address] Jun, [facility] [address] [id number] [address] [place] [address], [place] [address] 18 Jun, 2012 [facility] [address] [id number] [address] [place] [address], [place] [address] Jun, [facility] [address] [id number] [address] [place] [address], [place] [address] 04 Jun, [address] [facility] [address] [id number] [address] [place] [address], [place] [address] 04 Jun, 2012 [facility] [address] [id number] [address] [place] [address], [place] [address] May, [facility] [address] [id number] [address] [place] [address], [place] [address] 18 May, 2012 [facility] [address] [id number] [address] [place] [address], [place] [address] May, [facility] [address] [id number] [address] [place] [address], [place] [address] 15 Apr, 2012 [facility] [address] [id number] [address] [place] [address], [place] [address] 14 Apr, [address] [facility] [address] [id number] [address] [place] [address], [place] [address] Apr, [facility] [address] [id number] [address] [place] [address], [place] [address] Mar, [facility] [address] [id number] [address] [place] [address], [place] [address] Mar, [facility] [address] [id number] [address] [place] [address], [place] [address] Mar, [facility] [address] [id number] [address] [place] [address], [place] [address] Mar, [facility] [address] [id number] [address] [place] [address], [place] [address] Mar, [facility] [address] [id number] [address] [place] [address], [place] [address] Mar, [facility] [address] [id number] [address] [place] [address], [place] [address] Feb, [facility] [address] [id number] [address] [place] [address], [place] [address] Feb, [facility] [address] [id number] [address] [place] [address] Jan, [facility] [address] [id number] [address] [place] [address], [place] [address] Jan, [facility] [address] [id number] [address] [place] [address], [place] [address] Dec, [facility] [address] [id number] [address] [place] [address], [place] [address] Nov, [facility] [address] [id number] [address] [place] [address], [place] [address] Nov, [facility] [address] [id number] [address] [place] [address], [place] [address] Nov, [facility] [address] [id number] [address] [place] [address], [place] [address] Nov, [facility] [address] [id number] [address] [place] [address], [place] [address] Oct, [facility] [address] [id number] [address] [place] [address], [place] [address] Oct, [facility] [address] [id number] [address] [place] [address], [place] [address] Oct, [facility] [address] [id number] [address] [place] [address], [place] [address] Sep, [facility] [address] [id number] [address] [place] [address], [place] [address] Sep, [facility] [address] [id number] [address] [place] [address], [place] [address] Sep, [facility] [address] [id number] [address] [place] [address], [place] [address] August, [facility] [address] [id number] [address] [place] [address], [place] [address] August, [facility] [address] [id number] [address] [place] [address], [place] [address] Jul, [facility] [address] [id number] [address] [place] [address], [place] [address] 24 Jul, 2011 [facility] [address] [id number] [address] [place] [address], [place] [address] 17 Jul, 2011 [facility] [address] [id number] [address] [place] [address], [place] [address] Jul, [facility] [address] [id number] [address] [place] [address], [place] [address] Jun, [facility] [address] [id number] [address] [place] [address], [place] [address] May, [facility] [address] [id number] [address] [place] [address], [place] [address] Apr, [facility] [address] [id number] [address] [place] [address], [place] [address] Apr, [facility] [address] [id number] [address] [place] [address], [place] [address] Apr, [facility] [address] [id number] [address] [place] [address], [place] [address] Apr, [facility] [address] [id number] [address] [place] [address], [place] [address] Apr, [facility] [address] [id number] [address] [place] [address], [place] [address] Apr, [facility] [address] [id number] [address] [place] [address], [place] [address] Mar, [facility] [address] [id number] [address] [place] [address], [place] [address] Mar, [facility] [address] [id number] [address] [place] [address], [place] [address] 29 Feb, 2011 [facility] [address] [id number] [address] [place] [address], [place] [address] 18 Feb, 2011 [facility] [address] [id number] [address] [place] [address], [place] [address] 17 Feb, 2011 [facility] [address] [id number] [address] [place] [address], [place] [address] 09 Feb, 2011 [facility] [address] [id number] [address] [place] [address], [place] [address] 20 Jan, 2011 [facility] [address] [id number] [address] [place] [address], [place] [address] 18 Jan, 2011 [facility] [address] [id number] [address] [place] [address], [place] [address] 18 Jan, 2011 [facility] [address] [id number] [address] [place] [address], [place] [address] Jan, [facility] [address] [id number] [address] [place] [address], [place] [address] Nov, [facility] [address] [id number] [address] [place] [address], [place] [address] Mar, [facility] [address] [id number] [address] [place] [address] Mar, [facility] [address] [id number] [address] [place] [address], [place] [address] 30 Feb, 2010 [facility] [address] [id number] [address] [place] [address] 15 Feb, 2010 [facility] [address] [id number] [address] [place] [address] Jan, [facility] [address] [id number] [address] [place] [address] Jan, [facility] [address] [id number] [address] [place] [address], [place] [address] Sep, [facility] [address] [id number] [address] [place] [address] 16 May, 2009 [facility] [address] [id number] [address] [place] [address] Apr, [facility] [address] [id number] [address] [place] [address] Mar, [facility] [address] [id number] [address] [place] [address] [address], [address] [facility] [address] [id number] [address] [place] [address] Feb, [facility] [address] [id number] [address] [place] [address] Feb, [facility] [address] [id number] [address] [place] [id number] [address], [address] [facility] [address] [id number] [address] [place] [id number] Jan, [facility] [address] [id number] [address] [place] [id number] Jan, [facility] [address] [id number] [place] [address] Jan, [facility] [address] [id number] [address] [place] [id number] August, IMMUNIZATIONS No Known Immunizations SOCIAL HISTORY [...] age 6 Hospitalization History surgery Hospitalization History [facility], [place] treatment few times for BH
--- OUTSIDE RECORDS SUMMARY | 2019-09-29 10:46 | XMS REPORT ---
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 Active 72886092 Problem Open-angle glaucoma of both eyes, unspecified glaucoma stage, unspecified open-angle glaucoma type H40.10X0 Acti ve 17666463 Problem Adjustment disorder, unspecified type F43.20 Active 51517642 Problem Obstructive sleep apnea G47.33 Active 80359142 Problem Hypertensive retinopathy of both eyes H35.033 Active 4000842 Problem Type 2 diabetes mellitus with complication E11.8 Active 55234099 Problem Essential hypertension I10 Active 15784045 Problem Diabetes E11.9 Active 71468140 Problem Bipolar disorder, in partial remission, most rec ent episode manic F31.73 Active 61343218 Problem Intermittent explosive disorder in adult F63.81 Active 22634225 Problem Other diabetic neurological complication associated with type 2 diabetes mellitus E11.49 Active 885141082 Problem Depression F32.9 Active 39248652 Problem Neuropathy G62.9 Active 482278457 Problem Intermittent explosive disorder F63.81 Active 22503279 Problem Bipolar disorder, unspecified F31.9 Active 40744225 Problem Mild intellectual disability F70 A ctive 30207413 Problem Reactive airway disease, mild intermittent, uncomplicated J45.20 Active 001086962 Problem Gastroesophageal reflux disease without esophagitis K21.9 Active 834734286 ALLERGIES No Information ENCOUNTERS Encounter Location Date Diagnosis [facility] [address] [facility] [id number] [address] [place] [address] Dec, [facility] [address] [facility] [id number] [address] [place] [address] Nov, [facility] [address] [id number] [address] [place] [address] Oct, OUTREACH [facility] [id number] [place] [id number] Oct, Oral health maintenance stat us requiring routine preventive dental care K08.9 [facility] [address] [id number] [address] [place] [address] August, Intermittent explosive disor salvatore in adult F63.81 ; Bipolar disorder, unspecified F31.9 and Mild intellectual disability F70 [facility] [address] [id number] [address] [place] [id number] August, Dental caries K02.9 [facility] [address] [facility] [id number] [address] [place] [address] Jul, Onychomycosis B35.1 ; Other diabetic neurological complication associated with type 2 diabetes mellitus E11.49 and Tinea pedis of both feet B35.3 [facility] [address] [id number] [address] [place] [address] [id number] Jul, Caries K02.9 [facility] [address] [facility] [id number] [address] [place] [address] Jul, Type 2 diabetes mellitus wit h complication E11.8 ; Tobacco abuse Z72.0 and Bipolar disorder, unspecified F31.9 [facility] [address] [id number] [address] [place] [address] Jun, [facility] [address] [id number] [address] [place] [id number] Jun, Dental examination Z01.20 an d Oral health maintenance status requiring routine preventive dental care K08.9 [facility] [address] [id number] [address] [place] [address] May, Bilateral impacted cerumen H 61.23 [facility] [address] [place] [id number] [address] [place] [address] Apr, Bipolar disorder, unspecifie d F31.9 ; Intermittent explosive disorder in adult F63.81 ; Type 2 diabetes mellitus with complication E11.8 ; Tobacco abuse Z72.0 and Colon cancer screening Z12.11 [facility] [address] [facility] [id number] [address] [place] [address] Apr, Onychomycosis B35.1 and Othe r diabetic neurological complication associated with type 2 diabetes mellitus E11.49 [facility] [address] [facility] [id number] [address] [place] [address] Apr, Intermittent explosive disor salvatore in adult F63.81 ; Bipolar disorder, unspecified F31.9 and Mild intellectual disability F70 [facility] [address] [place] [id number] [address] [place] [address] Mar, Diabetes E11.9 [facility] [address] [place] [id number] [address] [place] [address] Jan, Encounter for immunization Z 23 [facility] [address] [place] [id number] [address] [place] [address] Jan, Tinea pedis of both feet B35 .3 ; Other diabetic neurological complication associated with type 2 diabetes mellitus E11.49 and Onychomycosis B35.1 [facility] [id number] [place] [address] Nov, Type 2 diabetes mellitus wit h complication E11.8 [facility] [address] [place] [id number] [address] [place] [address] Nov, [facility] [address] [facility] [id number] [address] [place] [address] Oct, Intermittent explosive disor salvatore in adult F63.81 ; Bipolar disorder, unspecified F31.9 and Mild intellectual disability F70 [facility] [address] [place] [id number] [address] [place] [address] Oct, [facility] [address] [facility] [id number] [address] [place] [address] [id number] 11 Oct, 2017 Dental examination Z01.20 [facility] [address] [facility] [id number] [address] [place] [address] 06 Oct, 2017 Onychomycosis B35.1 and Othe r diabetic neurological complication associated with type 2 diabetes mellitus E11.49 [facility] [address] [facility] [id number] [address] [place] [address] Sep, Type 2 diabetes mellitus wit h complication E11.8 and Colon cancer screening Z12.11 [facility] [address] [facility] [id number] [address] [place] [address] Sep, Type 2 diabetes mellitus wit h complication E11.8 ; Colon cancer screening Z12.11 and Neuropathy G62.9 [facility] [address] [facility] [id number] [address] [place] [address] August, Diabetes E11.9 [facility] [address] [facility] [id number] [address] [place] [address] [id number] Jul, Dental examination Z01.20 [facility] [address] [facility] [id number] [address] [place] [address] 27 May, 2017 Mild intellectual disability F70 [facility] [address] [facility] [id number] [address] [place] [address] May, Mild intellectual disability F70 ; High risk medication use Z79.899 ; Intermittent explosive disorder in adult F63.81 and Bipolar disorder, unspecified F31.9 [facility] [address] [facility] [id number] [address] [place] [address] May, [facility] [address] [facility] [id number] [address] [place] [address] May, [facility] [address] [facility] [id number] [address] [place] [address] Apr, Type 2 diabetes mellitus wit h complication E11.8 ; Mild intellectual disability F70 ; Gastroesophageal reflux disease without esophagitis K21.9 ; Reactive airway disease, mild intermittent, uncomplicated J45.20 and Tobacco abuse Z72.0 [facility] [address] [id number] [address] [place] [address] Apr, High risk medication use Z79 .899 ; Mild intellectual disability F70 ; Intermittent explosive disorder in adult F63.81 and Bipolar disorder, unspecified F31.9 [facility] [address] [id number] [address] [place] [address] [id number] Mar, Encounter for dental exam an d cleaning w/o abnormal findings Z01.20 [facility] [address] [id number] [address] [place] [address] [id number] Mar, Dental examination Z01.20 [facility] [address] [id number] [address] [place] [address] 12 Jan, 2017 [facility] [address] [id number] [address] [place] [address] Jan, [facility] [address] [id number] [address] [place] [address] Jan, Mild intellectual disability F70 ; Bipolar disorder, unspecified F31.9 and Intermittent explosive disorder in adult F63.81 [facility] [address] [id number] [address] [place] [address] 02 Jan, 2017 Diabetes E11.9 [facility] [address] [id number] [address] [place] [address] [id number] Dec, Encounter for dental examina tion and cleaning without abnormal findings Z01.20 [facility] [address] [id number] [address] [place] [address] Dec, Bipolar disorder, unspecifie d F31.9 ; Intermittent explosive disorder in adult F63.81 and Mild intellectual disability F70 [facility] [address] [id number] [address] [place] [address] Nov, Diabetes E11.9 [facility] [address] [id number] [address] [place] [address] Nov, [facility] [address] [id number] [address] [place] [address] 14 Nov, 2016 Diabetes E11.9 and Colon can cer screening Z12.[address] [id number] [id number] Sep, Dental examination Z01.20 [facility] [address] [id number] [address] [place] [address] [id number] 21 Sep, 2016 Encounter for dental examina tion and cleaning without abnormal findings Z01.20 [facility] [address] [id number] [address] [place] [address] 13 Sep, 2016 Bipolar disorder, unspecifie d F31.9 [facility] [address] [id number] [address] [place] [address] 12 Sep, 2016 Bipolar disorder, unspecifie d F31.9 [facility] [address] [id number] [address] [place] [phone] 26 Jul, 2016 [facility] [address] [id number] [address] [place] [phone] 13 Jul, 2016 Type 2 diabetes mellitus wit h complication E11.8 [facility] [address] [id number] [address] [place] [address] [id number] 15 Jun, 2016 Encounter for dental examina tion and cleaning without abnormal findings Z01.[address] [id number] [id number] 15 Jun, 2016 Dental examination Z01.20 [facility] [address] [facility] [id number] [address] [place] [address] 18 Apr, 2016 Sports physical Z02.5 [facility] [address] [facility] [id number] [address] [place] [address] 14 Mar, 2016 Bipolar disorder, in partial remission, most recent episode manic F31.73 and Intermittent explosive disorder in adult F63.81 [facility] [address] [facility] [id number] [address] [place] [address] Mar, [facility] [address] [facility] [id number] [address] [place] [address] Mar, Diabetes E11.9 [facility] [address] [place] [id number] [place] [address] [id number] Feb, Encounter for dental examina tion and cleaning without abnormal findings Z01.20 [facility] [address] [facility] [id number] [address] [place] [address] 22 Dec, 2015 Nocturnal hypoxemia G47.34 a nd Encounter for immunization Z23 [facility] [address] [facility] [id number] [address] [place] [address] 15 Dec, 2015 [facility] [address] [facility] [id number] [address] [place] [address] Dec, [place] [address] [facility] [id number] [place] [address] Dec, Bipolar disorder, unspecifie d F31.9 [facility] [address] [place] [id number] [address] [place] [address] [id number] Oct, Encounter for dental examina tion and cleaning without abnormal findings Z01.20 [place] [address] [facility] [id number] [place] [address] [id number] Oct, Dental examination Z01.20 [facility] [address] [place] [id number] [address] [place] [address] Oct, Diabetes E11.9 [facility] [address] [place] [id number] [address] [place] [address] Oct, Diabetes E11.9 ; Reactive ai rway disease, mild intermittent, uncomplicated J45.20 and Tobacco abuse Z72.0 [facility] [address] [facility] [id number] [address] [place] [address] Sep, Bipolar disorder, unspecifie d F31.9 and Depression F32.9 [place] [address] [facility] [id number] [address] [place] [address] Sep, [facility] [address] [address] August, Tinea pedis of both feet B35 .3 and DM w/o complication type II, uncontrolled E11.65 [place] [address] [place] [id number] [address] [place] [address] Jul, [place] [address] [address] Jul, [place] [address] [address] Jul, Obstructive sleep apnea G47. 33 [place] [address] [address] Jun, Diabetes E11.9 [place] [address] [address] Jun, [place] [address] [address] Jun, [place] [address] [address] Jun, Bipolar disorder, unspecifie d F31.9 and Mental retardation F79 [place] [address] [address] Apr, [place] [address] [address] Feb, Diabetes E11.9 ; Encounter f or immunization Z23 ; Cough R05 and Nicotine abuse Z72.0 [place] [address] [address] Jan, Bipolar disorder, unspecifie d F31.9 and Diabetes mellitus without mention of complication, type II or unspecified type, uncontrolled 250.02 [place] [address] [address] Jan, [place] [address] [address] Dec, Reactive airway disease 493. 90 and Enuresis 788.30 [facility] [address] [address] Dec, [facility] [address] [address] Nov, [facility] [address] [address] Nov, [facility] [address] [address] Nov, Annual physical exam V70.0 ; Urinary incontinence 788.30 ; Diabetes 250.00 and Hypertension 401.9 [place] [address] [address] Oct, Diabetes mellitus without me ntion of complication, type II or unspecified type, uncontrolled 250.02 [facility] [address] [place] [id number] [address] [place] [address] Oct, Diabetes mellitus without me ntion of complication, type II or unspecified type, uncontrolled 250.02 [facility] [address] [address] Oct, Diabetes mellitus without me ntion of complication, type II or unspecified type, uncontrolled 250.02 [place] [address] [place] [id number] [address] [place] [address] Oct, [facility] [address] [place] [id number] [address] [place] [address] Oct, [facility] [address] [address] Oct, Bipolar disorder, unspecifie d 296.80 [facility] [address] [id number] [address] [place] [address] [id number] Sep, Dental examination V72.2 [facility] [address] [place] [id number] [address] [place] [address] August, [facility] [address] [id number] [address] [place] [address] [id number] August, Dental examination V72.2 [facility] [address] [id number] [address] [place] [address] August, [facility] [address] [id number] [address] [place] [address] Jul, [facility] [address] [id number] [address] [place] [address] Jul, [facility] [address] [id number] [address] [place] [address] Jun, [facility] [address] [id number] [address] [place] [address] Jun, [facility] [address] [id number] [address] [place] [address] Jun, [facility] [address] [id number] [address] [place] [address] Jun, [facility] [address] [id number] [address] [place] [address] May, [facility] [address] [id number] [address] [place] [address] May, [facility] [address] [id number] [address] [place] [address] May, 2014 [facility] [address] [id number] [address] [place] [address] May, 2014 [facility] [address] [id number] [address] [place] [address] May, [facility] [address] [id number] [address] [place] [address] May, 2014 [facility] [address] [id number] [address] [place] [address] May, [facility] [address] [id number] [address] [place] [address], [place] [address] May, 2014 [facility] [address] [id number] [address] [place] [address], [place] [address] May, 2014 [facility] [address] [id number] [address] [place] [address], [place] [address] May, 2014 [facility] [address] [id number] [address] [place] [address], [place] [address] May, 2014 [facility] [address] [id number] [address] [place] [address], [place] [address] May, 2014 [facility] [address] [id number] [address] [place] [address], [place] [address] May, 2014 [facility] [address] [id number] [address] [place] [address], [place] [address] May, 2014 [facility] [address] [id number] [address] [place] [address], [place] [address] May, [facility] [address] [id number] [address] [place] [address], [place] [address] Apr, [facility] [address] [id number] [address] [place] [address], [place] [address] Apr, [facility] [address] [id number] [address] [place] [address], [place] [address] Apr, [facility] [address] [id number] [address] [place] [address], [place] [address] Apr, [facility] [address] [id number] [address] [place] [address], [place] [address] Apr, [facility] [address] [id number] [address] [place] [address], [place] [address] Apr, [facility] [address] [id number] [address] [place] [address], [place] [address] Apr, [facility] [address] [id number] [address] [place] [address], [place] [address] Apr, [facility] [address] [id number] [address] [place] [address], [place] [address] Apr, [facility] [address] [id number] [address] [place] [address], [place] [address] Apr, [facility] [address] [id number] [address] [place] [address], [place] [address] Apr, [facility] [address] [id number] [address] [place] [address], [place] [address] Apr, [facility] [address] [id number] [address] [place] [address], [place] [address] Mar, [facility] [address] [id number] [address] [place] [address], [place] [address] Mar, [facility] [address] [id number] [address] [place] [address], [place] [address] Mar, [facility] [address] [id number] [address] [place] [address], [place] [address] Mar, [facility] [address] [id number] [address] [place] [address], [place] [address] Mar, [facility] [address] [id number] [address] [place] [address], [place] [address] Mar, [facility] [address] [id number] [address] [place] [address], [place] [address] Feb, [facility] [address] [id number] [address] [place] [address], [place] [address] Feb, [facility] [address] [id number] [address] [place] [address], [place] [address] 13 Feb, 2014 [facility] [address] [id number] [address] [place] [address], [place] [address] 13 Feb, 2014 [facility] [address] [id number] [address] [place] [address], [place] [address] 14 Jan, 2014 [facility] [address] [id number] [address] [place] [address], [place] [address] 14 Jan, 2014 [facility] [address] [id number] [address] [place] [address], [place] [address] 14 Jan, 2014 [facility] [address] [id number] [address] [place] [address], [place] [address] 14 Jan, 2014 [facility] [address] [id number] [address] [place] [address], [place] [address] 22 Dec, 2013 [facility] [address] [id number] [address] [place] [address], [place] [address] 22 Dec, 2013 [facility] [address] [id number] [address] [place] [address], [place] [id number] 15 Dec, 2013 [facility] [address] [id number] [address] [place] [address], [place] [address] 15 Dec, 2013 [facility] [address] [id number] [address] [place] [address], [place] [address] Nov, [facility] [address] [id number] [address] [place] [address], [place] [address] Nov, [facility] [address] [id number] [address] [place] [address], [place] [address] Nov, [facility] [address] [id number] [address] [place] [address], [place] [address] Nov, [facility] [address] [id number] [address] [place] [address], [place] [address] Nov, [facility] [address] [id number] [address] [place] [address], [place] [address] Nov, [facility] [address] [id number] [address] [place] [address], [place] [address] Nov, [facility] [address] [id number] [address] [place] [address], [place] [address] Oct, [facility] [address] [id number] [address] [place] [address], [place] [address] Oct, [facility] [address] [id number] [address] [place] [address], [place] [address] Oct, [facility] [address] [id number] [address] [place] [address], [place] [address] Oct, [facility] [address] [id number] [address] [place] [address], [place] [address] Oct, [facility] [address] [id number] [address] [place] [address], [place] [address] Oct, [facility] [address] [id number] [address] [place] [address], [place] [address] Oct, [facility] [address] [id number] [address] [place] [address], [place] [address] Sep, [facility] [address] [id number] [address] [place] [address], [place] [address] Sep, [facility] [address] [id number] [address] [place] [address], [place] [address] Sep, [facility] [address] [id number] [address] [place] [address], [place] [address] Sep, [facility] [address] [id number] [address] [place] [address], [place] [address] Sep, [facility] [address] [id number] [address] [place] [address], [place] [address] Jul, [facility] [address] [id number] [address] [place] [address], [place] [address] 24 Jul, 2013 [facility] [address] [id number] [address] [place] [address], [place] [address] Jul, [facility] [address] [id number] [address] [place] [address], [place] [address] Jul, [facility] [address] [id number] [address] [place] [address], [place] [address] 15 Jul, 2013 [facility] [address] [id number] [facility] [place] [address] 15 Jul, 2013 [facility] [address] [id number] [facility] [place] [address] Jul, [facility] [address] [id number] [facility] [place] [address] Jul, [facility] [address] [id number] [address] [place] [address], [place] [address] Jul, [facility] [address] [id number] [facility] [place] [address] Jul, [facility] [address] [id number] [address] [place] [address], [place] [address] Jul, [facility] [address] [id number] [address] [place] [address], [place] [address] Jul, [facility] [address] [id number] [address] [place] [address], [place] [address] Jun, [facility] [address] [id number] [address] [place] [address], [place] [address] Jun, [facility] [address] [id number] [address] [place] [address], [place] [address] Jun, [facility] [address] [id number] [address] [place] [address], [place] [address] Jun, [facility] [address] [id number] [address] [place] [address], [place] [address] Jun, [facility] [address] [id number] [address] [place] [address], [place] [address] Jun, [facility] [address] [id number] [address] [place] [address], [place] [address] Jun, [facility] [address] [id number] [address] [place] [address], [place] [address] Jun, [facility] [address] [id number] [address] [place] [address], [place] [address] May, [facility] [address] [id number] [address] [place] [address], [place] [address] May, [facility] [address] [id number] [address] [place] [address], [place] [address] May, [facility] [address] [id number] [address] [place] [address], [place] [address] May, [facility] [address] [id number] [address] [place] [address], [place] [address] May, [facility] [address] [id number] [address] [place] [address], [place] [address] May, [facility] [address] [id number] [address] [place] [address], [place] [address] May, [facility] [address] [id number] [address] [place] [address], [place] [address] May, [facility] [address] [id number] [address] [place] [address], [place] [address] Apr, [facility] [address] [id number] [address] [place] [address], [place] [address] Apr, [facility] [address] [id number] [address] [place] [address], [place] [address] Apr, [facility] [address] [id number] [address] [place] [address], [place] [address] Apr, [facility] [address] [id number] [address] [place] [address], [place] [address] Mar, [facility] [address] [id number] [address] [place] [address], [place] [address] Mar, [facility] [address] [id number] [address] [place] [address], [place] [address] Mar, [facility] [address] [id number] [address] [place] [address], [place] [address] Feb, [facility] [address] [id number] [address] [place] [address], [place] [address] Feb, [facility] [address] [id number] [address] [place] [address], [place] [address] Feb, [facility] [address] [id number] [address] [place] [address], [place] [address] Feb, [facility] [address] [id number] [address] [place] [address], [place] [address] Feb, [facility] [address] [id number] [address] [place] [address], [place] [address] Feb, [facility] [address] [id number] [address] [place] [address], [place] [address] Jan, [facility] [address] [id number] [address] [place] [address], [place] [address] Jan, [facility] [address] [id number] [address] [place] [address], [place] [address] Jan, [facility] [address] [id number] [address] [place] [address], [place] [address] Jan, [facility] [address] [id number] [address] [place] [address], [place] [address] Jan, [facility] [address] [id number] [address] [place] [address], [place] [address] Jan, [facility] [address] [id number] [address] [place] [address], [place] [address] Jan, [facility] [address] [id number] [address] [place] [address], [place] [address] 25 Dec, 2012 [facility] [address] [id number] [address] [place] [address] [address] 16 Sep2012 [facility] [address] [id number] [address] [place] [address], [place] [address] 10 Dec, 2012 [facility] [address] [id number] [address] [place] [address], [place] [address] Dec, [facility] [address] [id number] [address] [place] [address], [place] [address] Nov, [facility] [address] [id number] [address] [place] [address], [place] [address] Nov, [facility] [address] [id number] [address] [place] [address], [place] [address] Nov, [facility] [address] [id number] [address] [place] [address], [place] [address] Nov, [facility] [address] [id number] [address] [place] [address], [place] [address] Nov, [facility] [address] [id number] [address] [place] [address], [place] [address] Nov, [facility] [address] [id number] [address] [place] [address], [place] [address] Nov, [facility] [address] [id number] [address] [place] [address], [place] [address] Oct, [facility] [address] [id number] [address] [place] [address], [place] [address] Oct, [facility] [address] [id number] [address] [place] [address], [place] [address] Oct, [facility] [address] [id number] [address] [place] [address], [place] [address] Oct, [facility] [address] [id number] [address] [place] [address], [place] [address] Oct, [facility] [address] [id number] [address] [place] [address], [place] [address] Oct, [facility] [address] [id number] [address] [place] [address], [place] [address] Oct, [facility] [address] [id number] [address] [place] [address], [place] [address] Oct, [facility] [address] [id number] [address] [place] [address], [place] [address] Sep, [facility] [address] [id number] [place] [id number] August, [facility] [address] [id number] [address] [place] [address], [place] [address] August, [facility] [address] [id number] [address] [place] [address], [place] [address] Jul, [facility] [address] [id number] [address] [place] [address], [place] [address] Jul, [facility] [address] [id number] [address] [place] [address], [place] [address] Jul, [facility] [address] [id number] [address] [place] [address], [place] [address] Jul, [facility] [address] [id number] [address] [place] [address], [place] [address] Jul, [facility] [address] [id number] [address] [place] [address], [place] [address] 17 Jul, 2012 [facility] [address] [id number] [address] [place] [address], [place] [address] 16 Jul, 2012 [facility] [address] [id number] [address] [place] [address], [place] [address] Jun, [facility] [address] [id number] [address] [place] [address], [place] [address] Jun, [facility] [address] [id number] [address] [place] [address], [place] [address] Jun, [facility] [address] [id number] [address] [place] [address], [place] [address] Jun, [facility] [address] [id number] [address] [place] [address], [place] [address] Jun, [facility] [address] [id number] [address] [place] [address], [place] [address] May, [facility] [address] [id number] [address] [place] [address], [place] [address] 18 May, 2012 [facility] [address] [id number] [address] [place] [address], [place] [address] 04 May, 2012 [facility] [address] [id number] [address] [place] [address], [place] [address] 15 Apr, 2012 [facility] [address] [id number] [address] [place] [address], [place] [address] 14 Apr, 2012 [facility] [address] [id number] [address] [place] [address], [place] [address] Apr, [facility] [address] [id number] [address] [place] [address], [place] [address] Mar, [facility] [address] [id number] [address] [place] [address], [place] [address] Mar, [facility] [address] [id number] [address] [place] [address], [place] [address] Mar, [facility] [address] [id number] [address] [place] [address], [place] [address] Mar, [facility] [address] [id number] [address] [place] [address] Mar, [facility] [address] [id number] [address] [place] [address], [place] [address] Mar, [facility] [address] [id number] [address] [place] [address] Feb, [facility] [address] [id number] [address] [place] [address], [place] [address] Feb, [facility] [address] [id number] [address] [place] [address], [place] [address] Jan, [facility] [address] [id number] [address] [place] [address] Jan, [facility] [address] [id number] [address] [place] [address] Dec, [facility] [address] [id number] [address] [place] [address], [place] [address] Nov, [facility] [address] [id number] [address] [place] [address], [place] [address] Nov, [facility] [address] [id number] [address] [place] [address], [place] [address] Nov, [facility] [address] [id number] [address] [place] [address], [place] [address] Nov, [facility] [address] [id number] [address] [place] [address], [place] [address] Oct, [facility] [address] [id number] [address] [place] [address], [place] [address] Oct, [facility] [address] [id number] [address] [place] [address], [place] [address] Oct, [facility] [address] [id number] [address] [place] [address], [place] [address] Sep, [facility] [address] [id number] [address] [place] [address], [place] [address] Sep, [facility] [address] [id number] [address] [place] [address], [place] [address] Sep, [facility] [address] [id number] [address] [place] [address], [place] [address] August, [facility] [address] [id number] [address] [place] [address], [place] [address] August, [facility] [address] [id number] [address] [place] [address], [place] [address] Jul, [facility] [address] [id number] [address] [place] [address], [place] [address] Jul, [facility] [address] [id number] [address] [place] [address], [place] [address] Jul, [facility] [address] [id number] [address] [place] [address], [place] [address] Jul, [facility] [address] [id number] [address] [place] [address], [place] [address] Jun, [facility] [address] [id number] [address] [place] [address], [place] [address] May, [facility] [address] [id number] [address] [place] [address], [place] [address] Apr, [facility] [address] [id number] [address] [place] [address], [place] [address] Apr, [facility] [address] [id number] [address] [place] [address], [place] [address] Apr, [facility] [address] [id number] [address] [place] [address], [place] [address] Apr, [facility] [address] [id number] [address] [place] [address], [place] [address] Apr, [facility] [address] [id number] [address] [place] [address], [place] [address] Apr, [facility] [address] [id number] [address] [place] [address], [place] [address] Mar, [facility] [address] [id number] [address] [place] [address], [place] [address] Mar, [facility] [address] [id number] [address] [place] [address], [place] [address] Feb, [facility] [address] [id number] [address] [place] [address], [place] [address] 18 Feb, 2011 [facility] [address] [id number] [address] [place] [address], [place] [address] 17 Feb, 2011 [facility] [address] [id number] [address] [place] [address], [place] [address] 09 Feb, 2011 [facility] [address] [id number] [address] [place] [address], [place] [address] 20 Jan, 2011 [facility] [address] [id number] [address] [place] [address], [place] [address] 18 Jan, 2011 [facility] [address] [id number] [address] [place] [address], [place] [address] 18 Jan, 2011 [facility] [address] [id number] [address] [place] [address], [place] [address] 18 Jan, 2011 [facility] [address] [id number] [address] [place] [address], [place] [address] 17 Nov, 2010 [facility] [address] [id number] [address] [place] [address], [place] [address] Mar, [facility] [address] [id number] [address] [place] [address], [place] [address] Mar, [facility] [address] [id number] [address] [place] [address], [place] [address] 30 Feb, 2010 [facility] [address] [id number] [address] [place] [address] 15 Feb, 2010 [facility] [address] [id number] [address] [place] [address], [place] [address] Jan, [facility] [address] [id number] [address] [place] [address] Jan, [facility] [address] [id number] [address] [place] [address] 15 Sep, 2009 [facility] [address] [id number] [place] [id number] 16 May, 2009 [facility] [address] [id number] [place] [address], [place] [address] Apr, [facility] [address] [id number] [place] [id number] Mar, [facility] [address] [id number] [address] [place] [id number] 15 Feb, 2009 [facility] [address] [id number] [address] [place] [id number] 10 Feb, 2009 [facility] [address] [id number] [address] [place] [id number] Feb, [facility] [address] [id number] [address] [place] [id number] 22 Jan, 2009 [facility] [address] [facility] [id number] [place] [phone] Jan, [facility] [address] [facility] [id number] [address] [place] [id number] Jan, [facility] [address] [facility] [id number] [address] [place] [id number] Jan, [facility] [address] [facility] [id number] [address] [place] [id number] August, IMMUNIZATIONS No Known Immunizations SOCIAL HISTORY [...] age 6 Hospitalization History surgery Hospitalization History [facility], indeann webber treatment few times for BH
--- OUTSIDE RECORDS SUMMARY | 2019-09-29 10:46 | XMS REPORT ---
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 Active 76129252 Problem Open-angle glaucoma of both eyes, unspecified glaucoma stage, unspecified open-angle glaucoma type H40.10X0 Acti ve 16661296 Problem Adjustment disorder, unspecified type F43.20 Active 71486310 Problem Obstructive sleep apnea G47.33 Active 86567511 Problem Hypertensive retinopathy of both eyes H35.033 Active 7899886 Problem Type 2 diabetes mellitus with complication E11.8 Active 63954592 Problem Essential hypertension I10 Active 97477119 Problem Diabetes E11.9 Active 34374814 Problem Bipolar disorder, in partial remission, most rec ent episode manic F31.73 Active 21629800 Problem Intermittent explosive disorder in adult F63.81 Active 57424285 Problem Other diabetic neurological complication associated with type 2 diabetes mellitus E11.49 Active 824921095 Problem Depression F32.9 Active 20539417 Problem Neuropathy G62.9 Active 323617532 Problem Intermittent explosive disorder F63.81 Active 12051130 Problem Bipolar disorder, unspecified F31.9 Active 52090244 Problem Mild intellectual disability F70 A ctive 41812675 Problem Reactive airway disease, mild intermittent, uncomplicated J45.20 Active 105997811 Problem Gastroesophageal reflux disease without esophagitis K21.9 Active 165235806 ALLERGIES No Information ENCOUNTERS Encounter Location Date Diagnosis [facility] [address] [facility] [id number] [address] [place] [address] 04 Jan, 2019 [facility] [address] [facility] [id number] [address] [place] [phone] Dec, [facility] [address] [id number] [address] [place] [address] Dec, [facility] [address] [id number] [address] [place] [address] Nov, [facility] [address] [facility] [id number] [address] [place] [phone] Oct, OUTREACH [facility] [id number] [place] [phone] Oct, Oral health maintenance stat us requiring routine preventive dental care K08.9 [facility] [address] [facility] [id number] [address] [place] [phone] August, Intermittent explosive disor salvatore in adult F63.81 ; Bipolar disorder, unspecified F31.9 and Mild intellectual disability F70 [facility] [address] [id number] [address] [place] [address] [phone] August, Dental caries K02.9 [facility] [address] [facility] [id number] [address] [place] [phone] Jul, Onychomycosis B35.1 ; Other diabetic neurological complication associated with type 2 diabetes mellitus E11.49 and Tinea pedis of both feet B35.3 [facility] [address] [id number] [address] [place] [address] [phone] Jul, Caries K02.9 [facility] [address] [facility] [id number] [address] [place] [phone] Jul, Type 2 diabetes mellitus wit h complication E11.8 ; Tobacco abuse Z72.0 and Bipolar disorder, unspecified F31.9 [facility] [address] [id number] [address] [place] [phone] Jun, [facility] [address] [id number] [address] [place] [address] [phone] Jun, Dental examination Z01.20 an d Oral health maintenance status requiring routine preventive dental care K08.9 [facility] [address] [id number] [address] [place] [phone] 11 May, 2018 Bilateral impacted cerumen H 61.23 [facility] [address] [id number] [address] [place] [address] Apr, Bipolar disorder, unspecifie d F31.9 ; Intermittent explosive disorder in adult F63.81 ; Type 2 diabetes mellitus with complication E11.8 ; Tobacco abuse Z72.0 and Colon cancer screening Z12.11 [place] [address] [place] [id number] [address] [place] [phone] Apr, Onychomycosis B35.1 and Othe r diabetic neurological complication associated with type 2 diabetes mellitus E11.49 [place] [address] [place] [id number] [address] [place] [phone] Apr, Intermittent explosive disor salvatore in adult F63.81 ; Bipolar disorder, unspecified F31.9 and Mild intellectual disability F70 [place] [address] [place] [phone] Mar, Diabetes E11.[address] [facility] [address] [id number] [address] [place] [phone] 20 Jan, 2018 Encounter for immunization Z 23 [facility] [address] [id number] [address] [place] [phone] Jan, Tinea pedis of both feet B35 .3 ; Other diabetic neurological complication associated with type 2 diabetes mellitus E11.49 and Onychomycosis B35.1 [facility] [address] [id number] [address] [place] [address] Nov, Type 2 diabetes mellitus wit h complication E11.8 [facility] [address] [facility] [id number] [address] [place] [phone] Nov, [facility] [address] [id number] [address] [place] [phone] Oct, Intermittent explosive disor salvatore in adult F63.81 ; Bipolar disorder, unspecified F31.9 and Mild intellectual disability F70 [facility] [address] [id number] [address] [place] [phone] Oct, [facility] [address] [id number] [address] [place] [address] [phone] Oct, Dental examination Z01.20 [facility] [address] [id number] [address] [place] [phone] 06 Oct, 2017 Onychomycosis B35.1 and Othe r diabetic neurological complication associated with type 2 diabetes mellitus E11.49 [facility] [address] [id number] [address] [place] [phone] Sep, Type 2 diabetes mellitus wit h complication E11.8 and Colon cancer screening Z12.11 [facility] [address] [facility] [id number] [address] [place] [phone] 18 Sep, 2017 Type 2 diabetes mellitus wit h complication E11.8 ; Colon cancer screening Z12.11 and Neuropathy G62.9 [facility] [address] [id number] [address] [place] [phone] August, Diabetes E11.9 [facility] [address] [id number] [address] [place] [address] [phone] Jul, Dental examination Z01.20 [facility] [address] [facility] [id number] [address] [place] [phone] 27 May, 2017 Mild intellectual disability F70 [facility] [address] [facility] [id number] [address] [place] [phone] 07 May, 2017 Mild intellectual disability F70 ; High risk medication use Z79.899 ; Intermittent explosive disorder in adult F63.81 and Bipolar disorder, unspecified F31.9 [facility] [address] [id number] [address] [place] [phone] May, [facility] [address] [facility] [id number] [address] [place] [phone] May, [facility] [address] [id number] [address] [place] [phone] Apr, Type 2 diabetes mellitus wit h complication E11.8 ; Mild intellectual disability F70 ; Gastroesophageal reflux disease without esophagitis K21.9 ; Reactive airway disease, mild intermittent, uncomplicated J45.20 and Tobacco abuse Z72.0 [facility] [address] [id number] [address] [place] [phone] Apr, High risk medication use Z79 .899 ; Mild intellectual disability F70 ; Intermittent explosive disorder in adult F63.81 and Bipolar disorder, unspecified F31.9 [facility] [address] [id number] [address] [place] [address] [phone] Mar, Dental examination Z01.20 [facility] [address] [id number] [address] [place] [address] [phone] Mar, Encounter for dental exam an d cleaning w/o abnormal findings Z01.20 [facility] [address] [id number] [address] [place] [phone] 12 Jan, 2017 [facility] [address] [id number] [address] [place] [phone] Jan, [facility] [address] [id number] [address] [place] [phone] Jan, Mild intellectual disability F70 ; Bipolar disorder, unspecified F31.9 and Intermittent explosive disorder in adult F63.81 [facility] [address] [id number] [address] [place] [phone] 02 Jan, 2017 Diabetes E11.9 [facility] [address] [id number] [address] [place] [address] [phone] 13 Dec, 2016 Encounter for dental examina tion and cleaning without abnormal findings Z01.20 [facility] [address] [id number] [address] [place] [phone] 12 Dec, 2016 Bipolar disorder, unspecifie d F31.9 ; Intermittent explosive disorder in adult F63.81 and Mild intellectual disability F70 [facility] [address] [id number] [address] [place] [phone] Nov, Diabetes E11.9 [facility] [address] [id number] [address] [place] [phone] Nov, [facility] [address] [facility] [id number] [address] [place] [phone] Nov, Diabetes E11.9 and Colon can cer screening Z12.[id number] [place] [address] [phone] Sep, Dental examination Z01.20 [facility] [address] [id number] [address] [place] [address] [phone] Sep, Encounter for dental examina tion and cleaning without abnormal findings Z01.20 [facility] [address] [facility] [id number] [address] [place] [phone] Sep, Bipolar disorder, unspecifie d F31.9 [facility] [address] [facility] [id number] [address] [place] [phone] Sep, Bipolar disorder, unspecifie d F31.9 [facility] [address] [facility] [id number] [address] [place] [phone] 26 Jul, 2016 [facility] [address] [facility] [id number] [address] [place] [phone] Jul, Type 2 diabetes mellitus wit h complication E11.[address] [id number] [id number] 15 Jun, 2016 Dental examination Z01.20 [facility] [address] [id number] [address] [place] [address] [phone] 15 Jun, 2016 Encounter for dental examina tion and cleaning without abnormal findings Z01.20 [facility] [address] [facility] [id number] [address] [place] [phone] 18 Apr, 2016 Sports physical Z02.5 [facility] [address] [facility] [id number] [address] [place] [phone] 14 Mar, 2016 Bipolar disorder, in partial remission, most recent episode manic F31.73 and Intermittent explosive disorder in adult F63.81 [facility] [address] [id number] [address] [place] [phone] 08 Mar, 2016 [facility] [address] [id number] [address] [place] [phone] 06 Mar, 2016 Diabetes E11.9 [facility] [address] [id number] [address] [place] [address] [phone] Feb, Encounter for dental examina tion and cleaning without abnormal findings Z01.20 [facility] [address] [id number] [address] [place] [phone] 22 Dec, 2015 Nocturnal hypoxemia G47.34 a nd Encounter for immunization Z23 [facility] [address] [facility] [id number] [address] [place] [phone] 15 Dec, 2015 [facility] [address] [id number] [address] [place] [phone] Dec, [facility] [address] [facility] [id number] [address] [place] [phone] Dec, Bipolar disorder, unspecifie d F31.9 [facility] [address] [place] [address] [phone] Oct, Encounter for dental examina tion and cleaning without abnormal findings Z01.[address] [id number] [place] [address] [phone] Oct, Dental examination Z01.20 [facility] [address] [facility] [id number] [address] [place] [phone] 07 Oct, 2015 Diabetes E11.9 [facility] [address] [facility] [id number] [address] [place] [phone] 05 Oct, 2015 Diabetes E11.9 ; Reactive ai rway disease, mild intermittent, uncomplicated J45.20 and Tobacco abuse Z72.0 [facility] [address] [facility] [id number] [address] [place] [phone] Sep, Bipolar disorder, unspecifie d F31.9 and Depression F32.9 [place] [address] [address] Sep, [place] [address] [phone] August, Tinea pedis of both feet B35 .3 and DM w/o complication type II, uncontrolled E11.65 [place] [address] [address] Jul, [place] [address] [id number] Jul, [place] [address] [id number] Jul, Obstructive sleep apnea G47. 33 [place] [address] [phone] Jun, Diabetes E11.9 [place] [address] [id number] Jun, [place] [address] [phone] Jun, [place] [address] [address] Jun, Bipolar disorder, unspecifie d F31.9 and Mental retardation F79 [place] [address] [address] Apr, [place] [address] [address] Feb, Diabetes E11.9 ; Encounter f or immunization Z23 ; Cough R05 and Nicotine abuse Z72.0 [place] [address] [id number] Jan, Bipolar disorder, unspecifie d F31.9 and Diabetes mellitus without mention of complication, type II or unspecified type, uncontrolled 250.02 [place] [address] [place] [id number] [address] [place] [phone] Jan, [place] [address] [address] Dec, Reactive airway disease 493. 90 and Enuresis 788.30 [place] [address] [address] Dec, [place] [address] [address] Nov, [place] [address] [address] Nov, [place] [address] [address] Nov, Annual physical exam V70.0 ; Urinary incontinence 788.30 ; Diabetes 250.00 and Hypertension 401.9 [place] [address] [address] Oct, Diabetes mellitus without me ntion of complication, type II or unspecified type, uncontrolled 250.02 [place] [address] [address] Oct, Diabetes mellitus without me ntion of complication, type II or unspecified type, uncontrolled 250.02 [place] [address] [address] Oct, Diabetes mellitus without me ntion of complication, type II or unspecified type, uncontrolled 250.02 [place] [address] [address] Oct, [place] [address] [address] Oct, [facility] [address] [address] Oct, Bipolar disorder, unspecifie d 296.80 [facility] [address] [id number] [address] [place] [address] [id number] Sep, Dental examination V72.2 [facility] [address] [id number] [address] [place] [phone] August, [facility] [address] [id number] [address] [place] [address] [id number] August, Dental examination V72.2 [facility] [address] [id number] [address] [place] [phone] August, [facility] [address] [id number] [address] [place] [phone] Jul, [facility] [address] [id number] [address] [place] [phone] Jul, [facility] [address] [id number] [address] [place] [phone] Jun, [facility] [address] [id number] [address] [place] [phone] Jun, [facility] [address] [id number] [address] [place] [phone] Jun, [facility] [address] [id number] [address] [place] [phone] Jun, [facility] [address] [id number] [address] [place] [phone] May, [facility] [address] [id number] [address] [place] [phone] May, [facility] [address] [id number] [address] [place] [phone] May, [facility] [address] [id number] [address] [place] [phone] May, [facility] [address] [id number] [address] [place] [phone] May, [facility] [address] [id number] [address] [place] [address], [place] [address] 16 May, 2014 [facility] [address] [id number] [address] [place] [address], [place] [address] May, 2014 [facility] [address] [id number] [address] [place] [address], [place] [address] 16 May, 2014 [facility] [address] [id number] [address] [place] [address], [place] [address] 16 May, 2014 [facility] [address] [id number] [address] [place] [address], [place] [address] May, 2014 [facility] [address] [id number] [address] [place] [address], [place] [address] May, 2014 [facility] [address] [id number] [address] [place] [address], [place] [address] May, 2014 [facility] [address] [id number] [address] [place] [address], [place] [address] May, 2014 [facility] [address] [id number] [address] [place] [address], [place] [address] May, 2014 [facility] [address] [id number] [address] [place] [address], [place] [address] May, 2014 [facility] [address] [id number] [address] [place] [address], [place] [address] Apr, [facility] [address] [id number] [address] [place] [phone] Apr, [facility] [address] [id number] [address] [place] [address], [place] [address] Apr, [facility] [address] [id number] [address] [place] [address], [place] [address] Apr, [facility] [address] [id number] [address] [place] [address], [place] [address] Apr, [facility] [address] [id number] [address] [place] [address], [place] [address] Apr, [facility] [address] [id number] [address] [place] [address], [place] [address] Apr, [facility] [address] [id number] [address] [place] [address], [place] [address] Apr, [facility] [address] [id number] [address] [place] [address], [place] [address] Apr, [facility] [address] [id number] [address] [place] [address], [place] [address] Apr, [facility] [address] [id number] [address] [place] [address], [place] [address] Apr, [facility] [address] [id number] [address] [place] [address], [place] [address] Apr, [facility] [address] [id number] [address] [place] [address], [place] [address] Mar, [facility] [address] [id number] [address] [place] [address], [place] [address] Mar, [facility] [address] [id number] [address] [place] [address], [place] [address] Mar, [facility] [address] [id number] [address] [place] [address], [place] [address] Mar, [facility] [address] [id number] [address] [place] [address], [place] [address] Mar, [facility] [address] [id number] [address] [place] [address], [place] [address] Mar, [facility] [address] [id number] [address] [place] [address], [place] [address] Feb, [facility] [address] [id number] [address] [place] [address], [place] [address] Feb, [facility] [address] [id number] [address] [place] [address], [place] [address] Feb, [facility] [address] [id number] [address] [place] [address], [place] [address] Feb, [facility] [address] [id number] [address] [place] [address], [place] [address] 14 Jan, 2014 [facility] [address] [id number] [address] [place] [address], [place] [address] 14 Jan, 2014 [facility] [address] [id number] [address] [place] [address], [place] [address] 14 Jan, 2014 [facility] [address] [id number] [address] [place] [address], [place] [address] 14 Jan, 2014 [facility] [address] [id number] [address] [place] [address], [place] [address] 22 Dec, 2013 [facility] [address] [id number] [address] [place] [address], [place] [address] 22 Dec, 2013 [facility] [address] [id number] [address] [place] [address], [place] [address] 15 Dec, 2013 [facility] [address] [id number] [address] [place] [address], [place] [address] 15 Dec, 2013 [facility] [address] [id number] [address] [place] [address], [place] [address] Nov, [facility] [address] [id number] [address] [place] [address], [place] [address] Nov, [facility] [address] [id number] [address] [place] [address], [place] [address] Nov, [facility] [address] [id number] [address] [place] [address], [place] [address] Nov, [facility] [address] [id number] [address] [place] [address], [place] [address] Nov, [facility] [address] [id number] [address] [place] [address], [place] [address] Nov, [facility] [address] [id number] [address] [place] [address], [place] [address] Nov, [facility] [address] [id number] [address] [address] Oct, [facility] [address] [id number] [address] [place] [address], [place] [address] Oct, [facility] [address] [id number] [address] [place] [address], [place] [address] Oct, [facility] [address] [id number] [address] [place] [address], [place] [address] Oct, [facility] [address] [id number] [address] [place] [address], [place] [address] Oct, [facility] [address] [id number] [address] [place] [address], [place] [address] Oct, [facility] [address] [id number] [address] [place] [address], [place] [address] Oct, [facility] [address] [id number] [address] [place] [address], [place] [address] Sep, [facility] [address] [id number] [address] [place] [address], [place] [address] Sep, [facility] [address] [id number] [address] [place] [place] [address], [place] [address] Sep, [facility] [address] [id number] [address] [place] [address], [place] [address] Sep, [facility] [address] [id number] [address] [place] [address], [place] [address] Sep, [facility] [address] [id number] [address] [place] [address], [place] [address] Jul, [facility] [address] [id number] [address] [place] [address], [place] [address] Jul, [facility] [address] [id number] [address] [place] [address], [place] [address] Jul, [facility] [address] [id number] [facility] [place] [address] Jul, [facility] [address] [id number] [facility] [place] [address] Jul, [facility] [address] [id number] [address] [place] [address], [place] [address] Jul, [facility] [address] [id number] [address] [place] [address], [place] [address] Jul, [facility] [address] [id number] [address] [place] [address], [place] [address] Jul, [facility] [address] [id number] [address] [place] [address], [place] [address] Jul, [facility] [address] [id number] [address] [place] [address], [place] [address] Jul, [facility] [address] [id number] [address] [place] [address], [place] [address] Jul, [facility] [address] [id number] [address] [place] [address], [place] [address] Jul, [facility] [address] [id number] [address] [place] [address], [place] [address] Jun, [facility] [address] [id number] [address] [place] [address], [place] [address] Jun, [facility] [address] [id number] [address] [place] [address], [place] [address] Jun, [facility] [address] [id number] [address] [place] [address], [place] [address] Jun, [facility] [address] [id number] [address] [place] [address], [place] [address] Jun, [facility] [address] [id number] [address] [place] [address], [place] [address] Jun, [facility] [address] [id number] [address] [place] [address], [place] [address] Jun, [facility] [address] [id number] [address] [place] [address], [place] [address] Jun, [facility] [address] [id number] [address] [place] [address], [place] [address] May, [facility] [address] [id number] [address] [place] [address], [place] [address] May, [facility] [address] [id number] [address] [place] [address], [place] [address] May, [facility] [address] [id number] [address] [place] [address], [place] [address] May, [facility] [address] [id number] [address] [place] [address], [place] [address] May, [facility] [address] [id number] [address] [place] [address], [place] [address] May, [facility] [address] [id number] [address] [place] [address], [place] [address] May, [facility] [address] [id number] [address] [place] [address], [place] [address] May, [facility] [address] [id number] [address] [place] [address], [place] [address] Apr, [facility] [address] [id number] [address] [place] [address], [place] [address] Apr, [facility] [address] [id number] [address] [place] [address], [place] [address] Apr, [facility] [address] [id number] [address] [place] [address], [place] [address] Apr, [facility] [address] [id number] [address] [place] [address], [place] [address] Mar, [facility] [address] [id number] [address] [place] [address], [place] [address] Mar, [facility] [address] [id number] [address] [place] [address], [place] [address] Mar, [facility] [address] [id number] [address] [place] [address], [place] [address] Feb, [facility] [address] [id number] [address] [place] [address], [place] [address] Feb, [facility] [address] [id number] [address] [place] [address], [place] [address] Feb, [facility] [address] [id number] [address] [place] [address], [place] [address] Feb, [facility] [address] [id number] [address] [place] [address], [place] [address] Feb, [facility] [address] [id number] [address] [place] [address], [place] [address] Feb, [facility] [address] [id number] [address] [place] [address], [place] [address] Jan, [facility] [address] [id number] [address] [place] [address], [place] [address] Jan, [facility] [address] [id number] [address] [place] [address], [place] [address] Jan, [facility] [address] [id number] [address] [place] [address], [place] [address] Jan, [facility] [address] [id number] [address] [place] [address], [place] [address] Jan, [facility] [address] [id number] [address] [place] [address], [place] [address] Jan, [facility] [address] [id number] [address] [place] [address], [place] [address] Jan, [facility] [address] [id number] [address] [place] [address], [place] [address] 25 Dec, 2012 [facility] [address] [id number] [address] [place] [address], [place] [address] 16 Dec, 2012 [facility] [address] [id number] [address] [place] [address], [place] [address] Dec, [facility] [address] [id number] [address] [place] [address], [place] [address] Dec, [facility] [address] [id number] [address] [place] [address], [place] [address] Nov, [facility] [address] [id number] [address] [place] [address], [place] [address] Nov, [facility] [address] [id number] [address] [place] [address], [place] [address] Nov, [facility] [address] [id number] [address] [place] [address], [place] [address] Nov, [facility] [address] [id number] [address] [place] [address], [place] [address] Nov, [facility] [address] [id number] [address] [place] [address], [place] [address] Nov, [facility] [address] [id number] [address] [place] [address], [place] [address] Nov, [facility] [address] [id number] [address] [place] [address], [place] [address] Oct, [facility] [address] [id number] [address] [place] [address], [place] [address] Oct, [facility] [address] [id number] [address] [place] [address], [place] [address] Oct, [facility] [address] [id number] [address] [place] [address], [place] [address] Oct, [facility] [address] [id number] [address] [place] [address], [place] [address] Oct, [facility] [address] [id number] [address] [place] [address], [place] [address] Oct, [facility] [address] [id number] [address] [place] [address] Oct, [facility] [address] [id number] [address] [place] [address], [place] [address] Oct, [facility] [address] [id number] [address] [place] [address], [place] [address] Sep, [facility] [id number] [id number] August, [facility] [address] [id number] [address] [place] [address], [place] [address] August, [facility] [address] [id number] [address] [place] [address], [place] [address] Jul, [facility] [address] [id number] [address] [place] [address], [place] [address] Jul, [facility] [address] [id number] [address] [place] [address], [place] [address] Jul, [facility] [address] [id number] [address] [place] [address], [place] [address] Jul, [facility] [address] [id number] [address] [place] [address], [place] [address] Jul, [facility] [address] [id number] [address] [place] [address], [place] [address] Jul, [facility] [address] [id number] [address] [place] [address], [place] [address] 16 Jul, 2012 [facility] [address] [id number] [address] [place] [address], [place] [address] Jun, [facility] [address] [id number] [address] [place] [address], [place] [address] 18 Jun, 2012 [facility] [address] [id number] [address] [place] [address], [place] [address] Jun, [facility] [address] [id number] [address] [place] [address], [place] [address] 04 Jun, 2012 [facility] [address] [id number] [address] [place] [address], [place] [address] Jun, [facility] [address] [id number] [address] [place] [address], [place] [address] May, [facility] [address] [id number] [address] [place] [address], [place] [address] 18 May, 2012 [facility] [address] [id number] [address] [place] [address], [place] [address] 04 May, 2012 [facility] [address] [id number] [address] [place] [address], [place] [address] 15 Apr, 2012 [facility] [address] [id number] [address] [place] [address], [place] [address] 14 Apr, 2012 [facility] [address] [id number] [address] [place] [address], [place] [address] Apr, [facility] [address] [id number] [address] [place] [address], [place] [address] Mar, [facility] [address] [id number] [address] [place] [address], [place] [address] Mar, [facility] [address] [id number] [address] [place] [address], [place] [address] Mar, [facility] [address] [id number] [address] [place] [address], [place] [address] Mar, [facility] [address] [id number] [address] [place] [address], [place] [address] Mar, [facility] [address] [id number] [address] [place] [address], [place] [address] Mar, [facility] [address] [id number] [address] [place] [address], [place] [address] Feb, [facility] [address] [id number] [address] [place] [address], [place] [address] Feb, [facility] [address] [id number] [address] [place] [address], [place] [address] Jan, [facility] [address] [id number] [address] [place] [address], [place] [address] Jan, [facility] [address] [id number] [address] [place] [address], [place] [address] Dec, [facility] [address] [id number] [address] [place] [address], [place] [address] Nov, [facility] [address] [id number] [address] [place] [address], [place] [address] Nov, [facility] [address] [id number] [address] [place] [address], [place] [address] Nov, [facility] [address] [id number] [address] [place] [address], [place] [address] Nov, [facility] [address] [id number] [address] [place] [address], [place] [address] Oct, [facility] [address] [id number] [address] [place] [address], [place] [address] Oct, [facility] [address] [id number] [address] [place] [address], [place] [address] Oct, [facility] [address] [id number] [address] [place] [address], [place] [address] Sep, [facility] [address] [id number] [address] [place] [address], [place] [address] Sep, [facility] [address] [id number] [address] [place] [address], [place] [address] Sep, [facility] [address] [id number] [address] [place] [address], [place] [address] August, [facility] [address] [id number] [address] [place] [address], [place] [address] August, [facility] [address] [id number] [address] [place] [address], [place] [address] Jul, [facility] [address] [id number] [address] [place] [address], [place] [address] 24 Jul, 2011 [facility] [address] [id number] [address] [place] [address], [place] [address] 17 Jul, 2011 [facility] [address] [id number] [address] [place] [address], [place] [address] Jul, [facility] [address] [id number] [address] [place] [address], [place] [address] Jun, [facility] [address] [id number] [address] [place] [address], [place] [address] May, [facility] [address] [id number] [address] [place] [address], [place] [address] Apr, [facility] [address] [id number] [address] [place] [address], [place] [address] Apr, [facility] [address] [id number] [address] [place] [address], [place] [address] Apr, [facility] [address] [id number] [address] [place] [address], [place] [address] Apr, [facility] [address] [id number] [address] [place] [address], [place] [address] Apr, [facility] [address] [id number] [address] [place] [address], [place] [address] Apr, [facility] [address] [id number] [address] [place] [address], [place] [address] Mar, [facility] [address] [id number] [address] [place] [address], [place] [address] Mar, [facility] [address] [id number] [address] [place] [address], [place] [address] 29 Feb, 2011 [facility] [address] [id number] [address] [place] [address], [place] [address] 18 Feb, 2011 [facility] [address] [id number] [address] [place] [address], [place] [address] Feb, [facility] [address] [id number] [address] [place] [address], [place] [address] 09 Feb, 2011 [facility] [address] [id number] [address] [place] [address], [place] [address] Jan, [facility] [address] [id number] [address] [place] [address], [place] [address] 18 Jan, 2011 [facility] [address] [id number] [address] [place] [address], [place] [address] Jan, [facility] [address] [id number] [address] [place] [address], [place] [address] Jan, [facility] [address] [id number] [address] [place] [address], [place] [address] Nov, [facility] [address] [id number] [address] [place] [address], [place] [address] Mar, [facility] [address] [id number] [address] [place] [address], [place] [address] Mar, [facility] [address] [id number] [address] [place] [address], [place] [address] 30 Feb, 2010 [facility] [address] [id number] [address] [place] [address], [place] [address] 15 Feb, 2010 [facility] [address] [id number] [address] [place] [address], [place] [address] Jan, [facility] [address] [id number] [address] [place] [address] Jan, [facility] [address] [id number] [address] [place] [address], [place] [address] 15 Sep, 2009 [facility] [address] [id number] [address] [place] [address], [place] [address] 16 May, 2009 [facility] [address] [id number] [address] [place] [address], [place] [address] Apr, [facility] [address] [id number] [address] [place] [address] 21 Mar, 2009 [facility] [address] [id number] [address] [place] [address] 15 Feb, 2009 [facility] [address] [id number] [address] [place] [address] 10 Feb, 2009 [facility] [address] [id number] [address] [place] [address] Feb, [facility] [address] [id number] [address] [place] [address] 22 Jan, 2009 [facility] [address] [id number] [address] [place] [address] Jan, [facility] [address] [id number] [address] [place] [address] Jan, [facility] [address] [facility] [id number] [address] [place] [address] Jan, [facility] [address] [id number] [address] [place] [address] August, IMMUNIZATIONS No Known Immunizations SOCIAL HISTORY [...] age 6 Hospitalization History surgery Hospitalization History [facility], innm tie treatment few times for BH
--- OUTSIDE RECORDS SUMMARY | 2019-09-29 10:46 | XMS REPORT ---
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 Active 82600029 Problem Open-angle glaucoma of both eyes, unspecified glaucoma stage, unspecified open-angle glaucoma type H40.10X0 Acti ve 22646765 Problem Adjustment disorder, unspecified type F43.20 Active 12570841 Problem Obstructive sleep apnea G47.33 Active 31768850 Problem Hypertensive retinopathy of both eyes H35.033 Active 8074594 Problem Type 2 diabetes mellitus with complication E11.8 Active 48384828 Problem Essential hypertension I10 Active 33714225 Problem Diabetes E11.9 Active 27181031 Problem Bipolar disorder, in partial remission, most rec ent episode manic F31.73 Active 35092705 Problem Intermittent explosive disorder in adult F63.81 Active 44986407 Problem Other diabetic neurological complication associated with type 2 diabetes mellitus E11.49 Active 219900115 Problem Depression F32.9 Active 06172263 Problem Neuropathy G62.9 Active 429031159 Problem Intermittent explosive disorder F63.81 Active 25781587 Problem Bipolar disorder, unspecified F31.9 Active 82365013 Problem Mild intellectual disability F70 A ctive 04727118 Problem Reactive airway disease, mild intermittent, uncomplicated J45.20 Active 136908770 Problem Gastroesophageal reflux disease without esophagitis K21.9 Active 304653959 ALLERGIES No Information ENCOUNTERS Encounter Location Date Diagnosis [facility] [address] [facility] [id number] [address] [place] [address] Jan, [facility] [address] [facility] [id number] [address] [place] [address] Dec, [facility] [address] [id number] [address] [place] [address] Dec, [facility] [address] [id number] [address] [place] [address] Nov, [facility] [address] [id number] [address] [place] [address] Oct, OUTREACH [facility] [id number] [place] [address] Oct, Oral health maintenance stat us requiring routine preventive dental care K08.9 [facility] [address] [id number] [address] [place] [address] August, Intermittent explosive disor salvatore in adult F63.81 ; Bipolar disorder, unspecified F31.9 and Mild intellectual disability F70 [facility] [address] [id number] [address] [place] [id number] August, Dental caries K02.9 [facility] [address] [id number] [address] [place] [address] Jul, Onychomycosis B35.1 ; Other diabetic neurological complication associated with type 2 diabetes mellitus E11.49 and Tinea pedis of both feet B35.3 [facility] [address] [id number] [address] [place] [address] [id number] Jul, Caries K02.9 [facility] [address] [id number] [address] [place] [address] Jul, Type 2 diabetes mellitus wit h complication E11.8 ; Tobacco abuse Z72.0 and Bipolar disorder, unspecified F31.9 [facility] [address] [id number] [address] [place] [address] Jun, [facility] [address] [id number] [address] [place] [address] [id number] Jun, Dental examination Z01.20 an d Oral health maintenance status requiring routine preventive dental care K08.9 [facility] [address] [id number] [address] [place] [address] May, Bilateral impacted cerumen H 61.23 [place] [address] [place] [address] Apr, Bipolar disorder, unspecifie d F31.9 ; Intermittent explosive disorder in adult F63.81 ; Type 2 diabetes mellitus with complication E11.8 ; Tobacco abuse Z72.0 and Colon cancer screening Z12.11 [place] [address] [address] [place] [id number] [address] [place] [address] Apr, Onychomycosis B35.1 and Othe r diabetic neurological complication associated with type 2 diabetes mellitus E11.49 [place] [address] [address] [place] [id number] [address] [place] [address] Apr, Intermittent explosive disor salvatore in adult F63.81 ; Bipolar disorder, unspecified F31.9 and Mild intellectual disability F70 [place] [address] [address] [place] [id number] [address] [place] [address] Mar, Diabetes E11.9 [facility] [address] [place] [id number] [address] [place] [address] Jan, Encounter for immunization Z 23 [place] [address] [address] [place] [id number] [address] [place] [address] Jan, Tinea pedis of both feet B35 .3 ; Other diabetic neurological complication associated with type 2 diabetes mellitus E11.49 and Onychomycosis B35.1 [place] [address] [address] [place] [id number] [address] [place] [address] Nov, Type 2 diabetes mellitus wit h complication E11.8 [place] [address] [address] [place] [id number] [address] [place] [address] Nov, [place] [address] [place] [id number] [address] [place] [address] Oct, Intermittent explosive disor salvatore in adult F63.81 ; Bipolar disorder, unspecified F31.9 and Mild intellectual disability F70 [place] [address] [place] [address] Oct, [facility] [address] [id number] [address] [place] [address] [id number] Oct, Dental examination Z01.20 [facility] [address] [facility] [id number] [address] [place] [address] 06 Oct, 2017 Onychomycosis B35.1 and Othe r diabetic neurological complication associated with type 2 diabetes mellitus E11.49 [facility] [address] [facility] [id number] [address] [place] [address] Sep, Type 2 diabetes mellitus wit h complication E11.8 and Colon cancer screening Z12.11 [place] [address] [address] [facility] [id number] [address] [place] [address] 18 Sep, 2017 Type 2 diabetes mellitus wit h complication E11.8 ; Colon cancer screening Z12.11 and Neuropathy G62.9 [place] [address] [address] [place] [id number] [address] [place] [address] August, Diabetes E11.9 [facility] [address] [facility] [id number] [address] [place] [address] [id number] Jul, Dental examination Z01.20 [facility] [address] [place] [id number] [address] [place] [address] 27 May, 2017 Mild intellectual disability F70 [place] [address] [address] [place] [id number] [address] [place] [address] 07 May, 2017 Mild intellectual disability F70 ; High risk medication use Z79.899 ; Intermittent explosive disorder in adult F63.81 and Bipolar disorder, unspecified F31.9 [place] [address] [address] [place] [id number] [address] [place] [address] May, [place] [address] [place] [id number] [address] [place] [address] May, [place] [address] [place] [id number] [address] [place] [address] Apr, Type 2 diabetes mellitus wit h complication E11.8 ; Mild intellectual disability F70 ; Gastroesophageal reflux disease without esophagitis K21.9 ; Reactive airway disease, mild intermittent, uncomplicated J45.20 and Tobacco abuse Z72.0 [facility] [address] [id number] [address] [place] [address] Apr, High risk medication use Z79 .899 ; Mild intellectual disability F70 ; Intermittent explosive disorder in adult F63.81 and Bipolar disorder, unspecified F31.9 [facility] [address] [id number] [address] [place] [address] [id number] Mar, Encounter for dental exam an d cleaning w/o abnormal findings Z01.20 [facility] [address] [id number] [address] [place] [address] [id number] Mar, Dental examination Z01.20 [facility] [address] [id number] [address] [place] [address] 12 Jan, 2017 [facility] [address] [id number] [address] [place] [address] Jan, [facility] [address] [id number] [address] [place] [address] Jan, Mild intellectual disability F70 ; Bipolar disorder, unspecified F31.9 and Intermittent explosive disorder in adult F63.81 [facility] [address] [id number] [address] [place] [address] 02 Jan, 2017 Diabetes E11.9 [facility] [address] [id number] [address] [place] [address] [id number] Dec, Encounter for dental examina tion and cleaning without abnormal findings Z01.20 [facility] [address] [id number] [address] [place] [address] 12 Dec, 2016 Bipolar disorder, unspecifie d F31.9 ; Intermittent explosive disorder in adult F63.81 and Mild intellectual disability F70 [facility] [address] [id number] [address] [place] [address] 25 Aug, 2017 Diabetes E11.9 [facility] [address] [id number] [address] [place] [address] Nov, [facility] [address] [id number] [address] [place] [address] Nov, Diabetes E11.9 and Colon can cer screening Z12.11 [facility] [address] [id number] [id number] Sep, Dental examination Z01.20 [facility] [address] [id number] [address] [place] [address] [id number] Sep, Encounter for dental examina tion and cleaning without abnormal findings Z01.20 [facility] [address] [id number] [address] [place] [address] 13 Sep, 2016 Bipolar disorder, unspecifie d F31.9 [facility] [address] [id number] [address] [place] [address] Sep, Bipolar disorder, unspecifie d F31.9 [facility] [address] [id number] [address] [place] [address] Jul, [facility] [address] [id number] [address] [place] [address] Jul, Type 2 diabetes mellitus wit h complication E11.8 [facility] [address] [id number] [address] [place] [address] [id number] 15 Jun, 2016 Encounter for dental examina tion and cleaning without abnormal findings Z01.20 [facility] [address] [id number] [id number] 15 Jun, 2016 Dental examination Z01.20 [facility] [address] [id number] [address] [place] [address] 18 Apr, 2016 Sports physical Z02.5 [facility] [address] [id number] [address] [place] [address] 14 Mar, 2016 Bipolar disorder, in partial remission, most recent episode manic F31.73 and Intermittent explosive disorder in adult F63.81 [facility] [address] [id number] [address] [place] [address] 08 Mar, 2016 [facility] [address] [id number] [address] [place] [address] Mar, Diabetes E11.9 [facility] [address] [facility] [id number] [address] [place] [address] [id number] Feb, Encounter for dental examina tion and cleaning without abnormal findings Z01.20 [facility] [address] [id number] [address] [place] [address] 22 Dec, 2015 Nocturnal hypoxemia G47.34 a nd Encounter for immunization Z23 [facility] [address] [facility] [id number] [address] [place] [id number] 15 Dec, 2015 [facility] [address] [facility] [id number] [address] [place] [address] Dec, [facility] [address] [facility] [id number] [address] [place] [address] Dec, Bipolar disorder, unspecifie d F31.9 [facility] [address] [place] [id number] [place] [address] [id number] Oct, Encounter for dental examina tion and cleaning without abnormal findings Z01.20 [place] [address] [facility] [id number] [place] [address] [id number] Oct, Dental examination Z01.20 [facility] [address] [facility] [id number] [address] [place] [address] Oct, Diabetes E11.9 [facility] [address] [facility] [id number] [address] [place] [address] Oct, Diabetes E11.9 ; Reactive ai rway disease, mild intermittent, uncomplicated J45.20 and Tobacco abuse Z72.0 [facility] [address] [facility] [id number] [address] [place] [address] Sep, Bipolar disorder, unspecifie d F31.9 and Depression F32.9 [place] [address] [address] Sep, [place] [address] [address] August, Tinea pedis of both feet B35 .3 and DM w/o complication type II, uncontrolled E11.65 [place] [address] [address] Jul, [place] [address] [address] Jul, [place] [address] [id number] Jul, Obstructive sleep apnea G47. 33 [place] [address] [address] Jun, Diabetes E11.9 [place] [address] [address] Jun, [place] [address] [address] Jun, [place] [address] [address] Jun, Bipolar disorder, unspecifie d F31.9 and Mental retardation F79 [place] [address] [address] Apr, [place] [address] [address] Feb, Diabetes E11.9 ; Encounter f or immunization Z23 ; Cough R05 and Nicotine abuse Z72.0 [place] [address] [address] 09 Jan, 2015 Bipolar disorder, unspecifie d F31.9 and Diabetes mellitus without mention of complication, type II or unspecified type, uncontrolled 250.02 [place] [address] [address] Jan, [facility] [address] [facility] [id number] [address] [place] [address] Dec, Reactive airway disease 493. 90 and Enuresis 788.30 [facility] [address] [facility] [id number] [address] [place] [address] Dec, [facility] [address] [place] [address] Nov, [facility] [address] [place] [id number] [address] [place] [address] Nov, [facility] [address] [place] [id number] [address] [place] [address] Nov, Annual physical exam V70.0 ; Urinary incontinence 788.30 ; Diabetes 250.00 and Hypertension 401.9 [place] [address] [address] [place] [id number] [address] [place] [address] Oct, Diabetes mellitus without me ntion of complication, type II or unspecified type, uncontrolled 250.02 [facility] [address] [place] [id number] [address] [place] [address] Oct, Diabetes mellitus without me ntion of complication, type II or unspecified type, uncontrolled 250.02 [facility] [address] [place] [id number] [address] [place] [address] Oct, Diabetes mellitus without me ntion of complication, type II or unspecified type, uncontrolled 250.02 [facility] [address] [place] [id number] [address] [place] [address] Oct, [facility] [address] [place] [id number] [address] [place] [address] Oct, [facility] [address] [place] [id number] [address] [place] [address] Oct, Bipolar disorder, unspecifie d 296.80 [facility] [address] [facility] [id number] [address] [place] [address] [id number] Sep, Dental examination V72.2 [facility] [address] [id number] [address] [place] [address] August, [facility] [address] [id number] [address] [place] [address] [id number] August, Dental examination V72.2 [facility] [address] [id number] [address] [place] [address] August, [facility] [address] [id number] [address] [place] [address] Jul, [facility] [address] [id number] [address] [place] [address] Jul, [facility] [address] [id number] [address] [place] [address] Jun, [facility] [address] [id number] [address] [place] [address] Jun, [facility] [address] [id number] [address] [place] [address] Jun, [facility] [address] [id number] [address] [place] [address] Jun, [facility] [address] [id number] [address] [place] [address] May, [facility] [address] [id number] [address] [place] [address] May, [facility] [address] [id number] [address] [place] [address] May, [facility] [address] [id number] [address] [place] [address] May, [facility] [address] [id number] [address] [place] [address] May, [facility] [address] [id number] [address] [place] [address] May, [facility] [address] [id number] [address] [place] [address], [place] [address] May, 2014 [facility] [address] [id number] [address] [place] [address], [place] [address] May, 2014 [facility] [address] [id number] [address] [place] [address], [place] [address] May, 2014 [facility] [address] [id number] [address] [place] [address], [place] [address] May, 2014 [facility] [address] [id number] [address] [place] [address], [place] [address] May, 2014 [facility] [address] [id number] [address] [place] [address], [place] [address] May, 2014 [facility] [address] [id number] [address] [place] [address], [place] [address] May, 2014 [facility] [address] [id number] [address] [place] [address], [place] [address] May, 2014 [facility] [address] [id number] [address] [place] [address], [place] [address] May, [facility] [address] [id number] [address] [place] [address], [place] [address] Apr, [facility] [address] [id number] [address] [place] [address], [place] [address] Apr, [facility] [address] [id number] [address] [place] [address], [place] [address] Apr, [facility] [address] [id number] [address] [place] [address], [place] [address] Apr, [facility] [address] [id number] [address] [place] [address], [place] [address] Apr, [facility] [address] [id number] [address] [place] [address], [place] [address] Apr, [facility] [address] [id number] [address] [place] [address], [place] [address] Apr, [facility] [address] [id number] [address] [place] [address], [place] [address] Apr, [facility] [address] [id number] [address] [place] [address], [place] [address] Apr, [facility] [address] [id number] [address] [place] [address], [place] [address] Apr, [facility] [address] [id number] [address] [place] [address], [place] [address] Apr, [facility] [address] [id number] [address] [place] [address], [place] [address] Apr, [facility] [address] [id number] [address] [place] [address], [place] [address] Mar, [facility] [address] [id number] [address] [place] [address], [place] [address] Mar, [facility] [address] [id number] [address] [place] [address], [place] [address] Mar, [facility] [address] [id number] [address] [place] [address], [place] [address] Mar, [facility] [address] [id number] [address] [place] [address], [place] [address] Mar, [facility] [address] [id number] [address] [place] [address], [place] [address] Mar, [facility] [address] [id number] [address] [place] [address], [place] [address] Feb, [facility] [address] [id number] [address] [place] [address], [place] [address] Feb, [facility] [address] [id number] [address] [place] [address], [place] [address] Feb, [facility] [address] [id number] [address] [place] [address], [place] [address] Feb, [facility] [address] [id number] [address] [place] [address], [place] [address] 14 Jan, 2014 [facility] [address] [id number] [address] [place] [address], [place] [address] 14 Jan, 2014 [facility] [address] [id number] [address] [place] [address], [place] [address] 14 Jan, 2014 [facility] [address] [id number] [address] [place] [address], [place] [id number] 14 Jan, 2014 [facility] [address] [id number] [address] [place] [address], [place] [id number] 22 Dec, 2013 [facility] [address] [id number] [address] [place] [address], [place] [id number] 22 Dec, 2013 [facility] [address] [id number] [address] [place] [address], [place] [address] 15 Dec, 2013 [facility] [address] [id number] [address] [place] [address], [place] [id number] 15 Dec, 2013 [facility] [address] [id number] [address] [place] [address], [place] [id number] Nov, [facility] [address] [id number] [address] [place] [address], [place] [id number] Nov, [facility] [address] [id number] [address] [place] [address], [place] [address] Nov, [facility] [address] [id number] [address] [place] [address], [place] [id number] Nov, [facility] [address] [id number] [address] [place] [address], [place] [address] Nov, [facility] [address] [id number] [address] [place] [address], [place] [address] Nov, [facility] [address] [id number] [address] [place] [address], [place] [address] Nov, [facility] [address] [id number] [address] [place] [address], [place] [address] Oct, [facility] [address] [id number] [facility] [place] [address] Oct, [facility] [address] [id number] [address] [place] [address], [place] [address] Oct, [facility] [address] [id number] [address] [place] [address], [place] [id number] Oct, [facility] [address] [id number] [address] [place] [address], [place] [address] Oct, [facility] [address] [id number] [address] [place] [address], [place] [address] Oct, [facility] [address] [id number] [address] [place] [address], [place] [id number] Oct, [facility] [address] [id number] [address] [place] [address], [place] [id number] Sep, [facility] [facility] [address] [id number] [address] [place] [address], [place] [address] Sep, [facility] [address] [id number] [address] [place] [address], [place] [address] Sep, [facility] [address] [id number] [address] [place] [address], [place] [address] Sep, [facility] [address] [id number] [address] [place] [address], [place] [address] Sep, [facility] [address] [id number] [address] [place] [address], [place] [address] Jul, [facility] [address] [id number] [address] [place] [address], [place] [address] Jul, [facility] [address] [id number] [address] [place] [address], [place] [address] Jul, [facility] [address] [id number] [address] [place] [address], [place] [address] Jul, [facility] [address] [id number] [facility] [place] [address] Jul, [facility] [address] [id number] [facility] [place] [address] Jul, [facility] [address] [id number] [facility] [place] [address] Jul, [facility] [address] [id number] [facility] [place] [address] Jul, [facility] [address] [id number] [facility] [place] [address] Jul, [facility] [address] [id number] [address] [place] [address], [place] [address] Jul, [facility] [address] [id number] [address] [place] [address], [place] [address] Jul, [facility] [address] [id number] [address] [place] [address], [place] [address] Jul, [facility] [address] [id number] [address] [place] [address], [place] [address] Jun, [facility] [address] [id number] [address] [place] [address], [place] [address] Jun, [facility] [address] [id number] [address] [place] [address], [place] [address] Jun, [facility] [address] [id number] [address] [place] [address], [place] [address] Jun, [facility] [address] [id number] [address] [place] [address], [place] [address] Jun, [facility] [address] [id number] [address] [place] [address], [place] [address] Jun, [facility] [address] [id number] [address] [place] [address], [place] [address] Jun, [facility] [address] [id number] [address] [place] [address], [place] [address] Jun, [facility] [address] [id number] [address] [place] [address], [place] [address] May, [facility] [address] [id number] [address] [place] [address], [place] [address] May, [facility] [address] [id number] [address] [place] [address], [place] [address] May, [facility] [address] [id number] [address] [place] [address], [place] [address] May, [facility] [address] [id number] [address] [place] [address], [place] [address] May, [facility] [address] [id number] [address] [place] [address], [place] [address] May, [facility] [address] [id number] [address] [place] [address], [place] [address] May, [facility] [address] [id number] [address] [place] [address], [place] [address] May, [facility] [address] [id number] [address] [place] [address], [place] [address] Apr, [facility] [address] [id number] [address] [place] [address], [place] [address] Apr, [facility] [address] [id number] [address] [place] [address], [place] [address] Apr, [facility] [address] [id number] [address] [place] [address], [place] [address] Apr, [facility] [address] [id number] [address] [place] [address], [place] [address] Mar, [facility] [address] [id number] [address] [place] [address], [place] [address] Mar, [facility] [address] [id number] [address] [place] [address], [place] [address] Mar, [facility] [address] [id number] [address] [place] [address], [place] [address] Feb, [facility] [address] [id number] [address] [place] [address], [place] [address] Feb, [facility] [address] [id number] [address] [place] [address], [place] [address] Feb, [facility] [address] [id number] [address] [place] [address], [place] [address] Feb, [facility] [address] [id number] [address] [place] [address], [place] [address] Feb, [facility] [address] [id number] [address] [place] [address], [place] [address] Feb, [facility] [address] [id number] [address] [place] [address], [place] [address] Jan, [facility] [address] [id number] [address] [place] [address], [place] [address] Jan, [facility] [address] [id number] [address] [place] [address], [place] [address] Jan, [facility] [address] [id number] [address] [place] [address], [place] [address] Jan, [facility] [address] [id number] [address] [place] [address], [place] [address] Jan, [facility] [address] [id number] [address] [place] [address], [place] [address] Jan, [facility] [address] [id number] [address] [place] [address], [place] [address] Jan, [facility] [address] [id number] [address] [place] [address], [place] [address] 25 Dec, 2012 [facility] [address] [id number] [address] [place] [address], [place] [address] 16 Dec, 2012 [facility] [address] [id number] [address] [place] [address], [place] [address] Dec, [facility] [address] [id number] [address] [place] [address], [place] [address] Dec, [facility] [address] [id number] [address] [place] [address], [place] [address] Nov, [facility] [address] [id number] [address] [place] [address], [place] [address] Nov, [facility] [address] [id number] [address] [place] [address], [place] [address] Nov, [facility] [address] [id number] [address] [place] [address], [place] [address] Nov, [facility] [address] [id number] [address] [place] [address], [place] [address] Nov, [facility] [address] [id number] [address] [place] [address], [place] [address] Nov, [facility] [address] [id number] [address] [place] [address], [place] [address] Nov, [facility] [address] [id number] [address] [place] [address], [place] [address] Oct, [facility] [address] [id number] [address] [place] [address], [place] [address] Oct, [facility] [address] [id number] [address] [place] [address], [place] [address] Oct, [facility] [address] [id number] [address] [place] [address], [place] [address] Oct, [facility] [address] [id number] [address] [place] [address], [place] [address] Oct, [facility] [address] [id number] [address] [place] [address], [place] [address] Oct, [facility] [address] [id number] [address] [place] [address], [place] [address] Oct, [facility] [address] [id number] [facility] [place] [address] Oct, [facility] [address] [id number] [address] [place] [address], [place] [address] Sep, [facility] [address] [id number] [place] [id number] August, [facility] [address] [id number] [facility] [place] [address] August, [facility] [address] [id number] [address] [place] [address], [place] [address] Jul, [facility] [address] [id number] [address] [place] [address], [place] [address] Jul, [facility] [address] [id number] [address] [place] [address], [place] [address] Jul, [facility] [address] [id number] [address] [place] [address], [place] [address] Jul, [facility] [address] [id number] [address] [place] [address], [place] [address] Jul, [facility] [address] [id number] [address] [place] [address], [place] [address] 17 Jul, 2012 [facility] [address] [id number] [address] [place] [address], [place] [address] 16 Jul, 2012 [facility] [address] [id number] [address] [place] [address], [place] [address] Jun, [facility] [address] [id number] [address] [place] [address], [place] [address] 18 Jun, 2012 [facility] [address] [id number] [address] [place] [address], [place] [address] 11 Jun, 2012 [facility] [address] [id number] [address] [place] [address], [place] [address] Jun, [facility] [address] [id number] [address] [place] [address], [place] [address] Jun, [facility] [address] [id number] [address] [place] [address], [place] [address] May, [facility] [address] [id number] [address] [place] [address], [place] [address] 18 May, 2012 [facility] [address] [id number] [address] [place] [address], [place] [address] May, [facility] [address] [id number] [address] [place] [address], [place] [address] 15 Apr, 2012 [facility] [address] [id number] [address] [place] [address], [place] [address] 14 Apr, 2012 [facility] [address] [id number] [address] [place] [address], [place] [address] Apr, [facility] [address] [id number] [address] [place] [address], [place] [address] Mar, [facility] [address] [id number] [address] [place] [address], [place] [address] Mar, [facility] [address] [id number] [address] [place] [address], [place] [address] Mar, [facility] [address] [id number] [address] [place] [address], [place] [address] Mar, [facility] [address] [id number] [address] [place] [address], [place] [address] Mar, [facility] [address] [id number] [address] [place] [address], [place] [address] Mar, [facility] [address] [id number] [address] [place] [address], [place] [address] Feb, [facility] [address] [id number] [address] [place] [address], [place] [address] Feb, [facility] [address] [id number] [address] [place] [address], [place] [address] 18 Jan, 2012 [facility] [address] [id number] [address] [place] [address], [place] [address] Jan, [facility] [address] [id number] [address] [place] [address], [place] [address] Dec, [facility] [address] [id number] [address] [place] [address], [place] [address] Nov, [facility] [address] [id number] [address] [place] [address], [place] [address] Nov, [facility] [address] [id number] [address] [place] [address], [place] [address] Nov, [facility] [address] [id number] [address] [place] [address], [place] [address] Nov, [facility] [address] [id number] [address] [place] [address], [place] [address] Oct, [facility] [address] [id number] [address] [place] [address], [place] [address] Oct, [facility] [address] [id number] [address] [place] [address], [place] [address] Oct, [facility] [address] [id number] [address] [place] [address], [place] [address] Sep, [facility] [address] [id number] [address] [place] [address], [place] [address] Sep, [facility] [address] [id number] [address] [place] [address], [place] [address] Sep, [facility] [address] [id number] [address] [place] [address], [place] [address] August, [facility] [address] [id number] [address] [place] [address], [place] [address] August, [facility] [address] [id number] [address] [place] [address], [place] [address] Jul, [facility] [address] [id number] [address] [place] [address], [place] [address] Jul, [facility] [address] [id number] [address] [place] [address], [place] [address] Jul, [facility] [address] [id number] [address] [place] [address], [place] [address] Jul, [facility] [address] [id number] [address] [place] [address], [place] [address] Jun, [facility] [address] [id number] [address] [place] [address], [place] [address] May, [facility] [address] [id number] [address] [place] [address], [place] [address] Apr, [facility] [address] [id number] [address] [place] [address], [place] [address] Apr, [facility] [address] [id number] [address] [place] [address], [place] [address] Apr, [facility] [address] [id number] [address] [place] [address], [place] [address] Apr, [facility] [address] [id number] [address] [place] [address], [place] [address] Apr, [facility] [address] [id number] [address] [place] [address], [place] [address] Apr, [facility] [address] [id number] [address] [place] [address], [place] [address] Mar, [facility] [address] [id number] [address] [place] [address], [place] [address] Mar, [facility] [address] [id number] [address] [place] [address], [place] [address] Feb, [facility] [address] [id number] [address] [place] [address], [place] [address] 18 Feb, 2011 [facility] [address] [id number] [address] [place] [address], [place] [address] 17 Feb, 2011 [facility] [address] [id number] [address] [address] Feb, [facility] [address] [id number] [address] [place] [address], [place] [address] Jan, [facility] [address] [id number] [address] [place] [address], [place] [address] 18 Jan, 2011 [facility] [address] [id number] [address] [place] [address], [place] [address] Jan, [facility] [address] [id number] [address] [place] [address] Jan, [facility] [address] [id number] [address] [place] [address], [place] [address] Nov, [facility] [address] [id number] [address] [place] [address] Mar, [facility] [address] [id number] [address] [place] [address], [place] [address] Mar, [facility] [address] [id number] [address] [place] [address] 30 Feb, 2010 [facility] [address] [id number] [address] [place] [address] Feb, [facility] [address] [id number] [address] [place] [address] Jan, [facility] [address] [id number] [address] [place] [address] Jan, [facility] [address] [id number] [address] [place] [address] Sep, [facility] [address] [id number] [address] [place] [address], [place] [address] May, [facility] [address] [id number] [address] [place] [address] Apr, [facility] [address] [id number] [address] [place] [address], [place] [address] Mar, [facility] [address] [id number] [address] [place] [address] 15 Feb, 2009 [facility] [address] [id number] [address] [place] [address] Feb, [facility] [address] [id number] [address] [place] [address] 10 Feb, 2009 [facility] [address] [id number] [address] [place] [address] Jan, [facility] [address] [id number] [address] [place] [address] Jan, [facility] [address] [id number] [address] [place] [address] Jan, [facility] [address] [facility] [id number] [address] [place] [address] Jan, [facility] [address] [facility] [id number] [address] [place] [address] August, IMMUNIZATIONS No Known Immunizations SOCIAL HISTORY [...] age 6 Hospitalization History surgery Hospitalization History [facility], inpa tient treatment few times for BH
--- OUTSIDE RECORDS SUMMARY | 2019-09-29 10:47 | XMS REPORT ---
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 Active 64248455 Problem Open-angle glaucoma of both eyes, unspecified glaucoma stage, unspecified open-angle glaucoma type H40.10X0 Acti ve 68465669 Problem Adjustment disorder, unspecified type F43.20 Active 26428583 Problem Obstructive sleep apnea G47.33 Active 63512914 Problem Hypertensive retinopathy of both eyes H35.033 Active 4397668 Problem Type 2 diabetes mellitus with complication E11.8 Active 88870198 Problem Essential hypertension I10 Active 47141621 Problem Diabetes E11.9 Active 77154589 Problem Bipolar disorder, in partial remission, most rec ent episode manic F31.73 Active 51372504 Problem Intermittent explosive disorder in adult F63.81 Active 29325033 Problem Other diabetic neurological complication associated with type 2 diabetes mellitus E11.49 Active 551792724 Problem Depression F32.9 Active 12005493 Problem Neuropathy G62.9 Active 373756708 Problem Intermittent explosive disorder F63.81 Active 39946442 Problem Bipolar disorder, unspecified F31.9 Active 66394532 Problem Mild intellectual disability F70 A ctive 31117321 Problem Reactive airway disease, mild intermittent, uncomplicated J45.20 Active 580987964 Problem Gastroesophageal reflux disease without esophagitis K21.9 Active 774975843 ALLERGIES No Information ENCOUNTERS Encounter Location Date Diagnosis [facility] [address] [facility] [id number] [address] [place] [phone] Dec, [facility] [address] [facility] [id number] [address] [place] [phone] Nov, [facility] [address] [facility] [id number] [address] [place] [phone] Oct, OUTREACH [facility] [address] [place] [id number] [place] [phone] Oct, Oral health maintenance stat us requiring routine preventive dental care K08.9 [facility] [address] [facility] [id number] [address] [place] [phone] August, Intermittent explosive disor salvatore in adult F63.81 ; Bipolar disorder, unspecified F31.9 and Mild intellectual disability F70 [facility] [address] [facility] [id number] [address] [place] [address] [phone] August, Dental caries K02.9 [facility] [address] [facility] [id number] [address] [place] [phone] Jul, Onychomycosis B35.1 ; Other diabetic neurological complication associated with type 2 diabetes mellitus E11.49 and Tinea pedis of both feet B35.3 [facility] [address] [facility] [id number] [address] [place] [address] [phone] Jul, Caries K02.9 [facility] [address] [facility] [id number] [address] [place] [phone] Jul, Type 2 diabetes mellitus wit h complication E11.8 ; Tobacco abuse Z72.0 and Bipolar disorder, unspecified F31.9 [facility] [address] [facility] [id number] [address] [place] [phone] Jun, [facility] [address] [facility] [id number] [address] [place] [address] [phone] Jun, Dental examination Z01.20 an d Oral health maintenance status requiring routine preventive dental care K08.9 [facility] [address] [facility] [id number] [address] [place] [phone] May, Bilateral impacted cerumen H 61.23 [facility] [address] [facility] [id number] [address] [place] [phone] Apr, Bipolar disorder, unspecifie d F31.9 ; Intermittent explosive disorder in adult F63.81 ; Type 2 diabetes mellitus with complication E11.8 ; Tobacco abuse Z72.0 and Colon cancer screening Z12.11 [facility] [address] [phone] Apr, Onychomycosis B35.1 and Othe r diabetic neurological complication associated with type 2 diabetes mellitus E11.49 [facility] [address] [address] Apr, Intermittent explosive disor salvatore in adult F63.81 ; Bipolar disorder, unspecified F31.9 and Mild intellectual disability F70 [place] [address] [phone] 03 Mar, 2018 Diabetes E11.9 [facility] [address] [address] Jan, Encounter for immunization Z 23 [facility] [address] [address] Jan, Tinea pedis of both feet B35 .3 ; Other diabetic neurological complication associated with type 2 diabetes mellitus E11.49 and Onychomycosis B35.1 [place] [address] [place] [id number] [address] [place] [phone] Nov, Type 2 diabetes mellitus wit h complication E11.8 [place] [address] [place] [id number] [address] [place] [phone] Nov, [facility] [address] [address] Oct, Intermittent explosive disor salvatore in adult F63.81 ; Bipolar disorder, unspecified F31.9 and Mild intellectual disability F70 [facility] [address] [place] [id number] [address] [place] [phone] Oct, [facility] [address] [place] [id number] [address] [place] [address] [phone] Oct, Dental examination Z01.20 [place] [address] [place] [phone] Oct, Onychomycosis B35.1 and Othe r diabetic neurological complication associated with type 2 diabetes mellitus E11.49 [place] [address] [place] [id number] [address] [place] [phone] Sep, Type 2 diabetes mellitus wit h complication E11.8 and Colon cancer screening Z12.11 [place] [address] [place] [phone] Sep, Type 2 diabetes mellitus wit h complication E11.8 ; Colon cancer screening Z12.11 and Neuropathy G62.9 [place] [address] [place] [id number] [address] [place] [phone] August, Diabetes E11.9 [facility] [address] [place] [id number] [address] [place] [address] [phone] Jul, Dental examination Z01.20 [place] [address] [place] [phone] 27 May, 2017 Mild intellectual disability F70 [place] [address] [address] 07 May, 2017 Mild intellectual disability F70 ; High risk medication use Z79.899 ; Intermittent explosive disorder in adult F63.81 and Bipolar disorder, unspecified F31.9 [place] [address] [place] [id number] [address] [place] [phone] May, [place] [address] [place] [id number] [address] [place] [phone] May, [place] [address] [place] [id number] [address] [place] [phone] Apr, Type 2 diabetes mellitus wit h complication E11.8 ; Mild intellectual disability F70 ; Gastroesophageal reflux disease without esophagitis K21.9 ; Reactive airway disease, mild intermittent, uncomplicated J45.20 and Tobacco abuse Z72.0 [place] [address] [place] [id number] [address] [place] [phone] Apr, High risk medication use Z79 .899 ; Mild intellectual disability F70 ; Intermittent explosive disorder in adult F63.81 and Bipolar disorder, unspecified F31.9 [facility] [address] [id number] [address] [place] [address] [phone] Mar, Encounter for dental exam an d cleaning w/o abnormal findings Z01.20 [facility] [address] [id number] [address] [place] [address] [phone] Mar, Dental examination Z01.20 [facility] [address] [id number] [address] [place] [id number] 12 Jan, 2017 [facility] [address] [id number] [address] [place] [phone] Jan, [facility] [address] [id number] [address] [place] [phone] Jan, Mild intellectual disability F70 ; Bipolar disorder, unspecified F31.9 and Intermittent explosive disorder in adult F63.81 [facility] [address] [id number] [address] [place] [phone] Jan, Diabetes E11.9 [facility] [address] [id number] [address] [place] [address] [phone] Dec, Encounter for dental examina tion and cleaning without abnormal findings Z01.20 [facility] [address] [id number] [address] [place] [phone] Dec, Bipolar disorder, unspecifie d F31.9 ; Intermittent explosive disorder in adult F63.81 and Mild intellectual disability F70 [facility] [address] [id number] [address] [place] [phone] Nov, Diabetes E11.9 [facility] [address] [id number] [address] [place] [phone] Nov, [facility] [address] [id number] [address] [place] [phone] Nov, Diabetes E11.9 and Colon can cer screening Z12.[address] [id number] [id number] 21 Sep, 2016 Dental examination Z01.20 [facility] [address] [id number] [address] [place] [address] [id number] 21 Sep, 2016 Encounter for dental examina tion and cleaning without abnormal findings Z01.20 [facility] [address] [id number] [address] [place] [phone] 13 Sep, 2016 Bipolar disorder, unspecifie d F31.9 [facility] [address] [id number] [address] [place] [phone] 12 Sep, 2016 Bipolar disorder, unspecifie d F31.9 [facility] [address] [facility] [id number] [address] [place] [phone] Jul, [facility] [address] [facility] [id number] [address] [place] [phone] Jul, Type 2 diabetes mellitus wit h complication E11.8 [facility] [address] [id number] [address] [place] [address] [id number] 15 Jun, 2016 Encounter for dental examina tion and cleaning without abnormal findings Z01.[address] [id number] [id number] 15 Jun, 2016 Dental examination Z01.20 [facility] [address] [facility] [id number] [address] [place] [phone] 18 Apr, 2016 Sports physical Z02.5 [facility] [address] [facility] [id number] [address] [place] [phone] 14 Mar, 2016 Bipolar disorder, in partial remission, most recent episode manic F31.73 and Intermittent explosive disorder in adult F63.81 [facility] [address] [facility] [id number] [address] [place] [phone] 08 Mar, 2016 [facility] [address] [facility] [id number] [address] [place] [phone] Mar, Diabetes E11.9 [facility] [address] [id number] [address] [place] [address] [phone] Feb, Encounter for dental examina tion and cleaning without abnormal findings Z01.20 [facility] [address] [id number] [address] [place] [phone] 22 Dec, 2015 Nocturnal hypoxemia G47.34 a nd Encounter for immunization Z23 [facility] [address] [facility] [id number] [address] [place] [phone] 15 Dec, 2015 [facility] [address] [facility] [id number] [address] [place] [phone] Dec, [facility] [address] [facility] [id number] [address] [place] [phone] Dec, Bipolar disorder, unspecifie d F31.9 [facility] [address] [id number] [address] [place] [address] [phone] Oct, Encounter for dental examina tion and cleaning without abnormal findings Z01.20 [place] [id number] [facility] [id number] [place] [address] [id number] Oct, Dental examination Z01.20 [facility] [address] [facility] [id number] [address] [place] [phone] Oct, Diabetes E11.9 [facility] [address] [facility] [id number] [address] [place] [phone] Oct, Diabetes E11.9 ; Reactive ai rway disease, mild intermittent, uncomplicated J45.20 and Tobacco abuse Z72.0 [facility] [address] [facility] [id number] [address] [place] [phone] Sep, Bipolar disorder, unspecifie d F31.9 and Depression F32.9 [facility] [address] [facility] [id number] [address] [place] [phone] Sep, [facility] [address] [facility] [id number] [address] [place] [phone] 20 May, 2016 Tinea pedis of both feet B35 .3 and DM w/o complication type II, uncontrolled E11.65 [place] [address] [phone] Jul, [place] [address] [address] Jul, [place] [address] [id number] Jul, Obstructive sleep apnea G47. 33 [place] [address] [address] Jun, Diabetes E11.9 [place] [address] [address] Jun, [place] [address] [address] Jun, [place] [address] [phone] Jun, Bipolar disorder, unspecifie d F31.9 and Mental retardation F79 [place] [address] [address] Apr, [place] [address] [address] Feb, Diabetes E11.9 ; Encounter f or immunization Z23 ; Cough R05 and Nicotine abuse Z72.0 [place] [address] [address] Jan, Bipolar disorder, unspecifie d F31.9 and Diabetes mellitus without mention of complication, type II or unspecified type, uncontrolled 250.02 [place] [address] [address] Jan, [place] [address] [address] Dec, Reactive airway disease 493. 90 and Enuresis 788.30 [place] [address] [id number] [address] [place] [phone] Dec, [facility] [address] [facility] [id number] [address] [place] [phone] Nov, [facility] [address] [facility] [id number] [address] [place] [phone] Nov, [facility] [address] [facility] [id number] [place] [address] Nov, Annual physical exam V70.0 ; Urinary incontinence 788.30 ; Diabetes 250.00 and Hypertension 401.9 [facility] [address] [facility] [id number] [address] [place] [phone] Oct, Diabetes mellitus without me ntion of complication, type II or unspecified type, uncontrolled 250.02 [facility] [address] [facility] [id number] [address] [place] [phone] Oct, Diabetes mellitus without me ntion of complication, type II or unspecified type, uncontrolled 250.02 [facility] [address] [place] [id number] [address] [place] [phone] Oct, Diabetes mellitus without me ntion of complication, type II or unspecified type, uncontrolled 250.02 [facility] [address] [place] [id number] [address] [place] [phone] Oct, [facility] [address] [place] [id number] [address] [place] [id number] Oct, [facility] [address] [facility] [id number] [address] [place] [id number] Oct, Bipolar disorder, unspecifie d 296.80 [facility] [id number] [place] [address] [id number] Sep, Dental examination V72.2 [facility] [address] [facility] [id number] [address] [place] [phone] August, [facility] [address] [place] [id number] [place] [address] [id number] August, Dental examination V72.2 [facility] [address] [id number] [address] [place] [phone] August, [facility] [address] [id number] [address] [place] [phone] 14 Jul, 2014 [facility] [address] [id number] [address] [place] [phone] Jul, [facility] [address] [id number] [address] [place] [phone] 17 Jun, 2014 [facility] [address] [id number] [address] [place] [phone] Jun, [facility] [address] [id number] [address] [place] [phone] Jun, [facility] [address] [id number] [address] [place] [phone] Jun, [facility] [address] [id number] [address] [place] [phone] May, [facility] [address] [id number] [address] [place] [phone] 23 May, 2014 [facility] [address] [id number] [address] [place] [phone] 16 May, 2014 [facility] [address] [id number] [address] [place] [phone] 16 May, 2014 [facility] [address] [id number] [address] [place] [phone] 16 May, 2014 [facility] [address] [id number] [address] [place] [phone] 16 May, 2014 [facility] [address] [id number] [address] [place] [id number] 16 May, 2014 [facility] [address] [id number] [address] [place] [phone] May, 2014 [facility] [address] [id number] [facility] [place] [address] May, [facility] [address] [id number] [address] [place] [address], [place] [address] May, 2014 [facility] [address] [id number] [address] [place] [address], [place] [address] May, 2014 [facility] [address] [id number] [address] [place] [address], [place] [address] May, 2014 [facility] [address] [id number] [address] [place] [address], [place] [address] May, [facility] [address] [id number] [address] [place] [address], [place] [address] May, 2014 [facility] [address] [id number] [address] [place] [address], [place] [id number] May, [facility] [address] [id number] [address] [place] [address], [place] [id number] Apr, [facility] [address] [id number] [address] [place] [address], [place] [address] Apr, [facility] [address] [id number] [address] [place] [address], [place] [address] Apr, [facility] [address] [id number] [address] [place] [address], [place] [address] Apr, [facility] [address] [id number] [address] [place] [address], [place] [address] Apr, [facility] [address] [id number] [address] [place] [address], [place] [address] Apr, [facility] [address] [id number] [address] [place] [address], [place] [address] Apr, [facility] [address] [id number] [address] [place] [address], [place] [id number] Apr, [facility] [address] [id number] [address] [place] [address], [place] [address] Apr, [facility] [address] [id number] [address] [place] [address], [place] [address] Apr, [facility] [address] [id number] [address] [place] [address], [place] [address] Apr, [facility] [address] [id number] [address] [place] [address], [place] [address] Apr, [facility] [address] [id number] [address] [place] [address], [place] [address] Mar, [facility] [address] [id number] [address] [place] [address], [place] [address] Mar, [facility] [address] [id number] [address] [place] [address], [place] [id number] Mar, [facility] [address] [id number] [address] [place] [address], [place] [id number] Mar, [facility] [address] [id number] [address] [place] [address], [place] [id number] Mar, [facility] [address] [id number] [address] [place] [address], [place] [id number] Mar, [facility] [address] [id number] [address] [place] [address], [place] [id number] 13 Feb, 2014 [facility] [address] [id number] [address] [place] [address], [place] [id number] Feb, [facility] [address] [id number] [address] [place] [address], [place] [id number] Feb, [facility] [address] [id number] [address] [place] [address], [place] [id number] 13 Feb, 2014 [facility] [address] [id number] [address] [place] [address], [place] [id number] 14 Jan, 2014 [facility] [address] [id number] [address] [place] [address], [place] [id number] 14 Jan, 2014 [facility] [address] [id number] [address] [place] [address], [place] [id number] 14 Jan, 2014 [facility] [address] [id number] [address] [place] [address], [place] [id number] Jan, [facility] [address] [id number] [address] [place] [address], [place] [id number] Dec, [facility] [address] [id number] [address] [place] [address], [place] [id number] Dec, [facility] [address] [id number] [address] [place] [address], [place] [id number] Dec, [facility] [facility] [address] [id number] [address] [place] [address], [place] [address] Dec, [facility] [address] [id number] [address] [place] [address], [place] [address] Nov, [facility] [address] [id number] [address] [place] [address], [place] [address] Nov, [facility] [address] [id number] [address] [place] [address], [place] [address] Nov, [facility] [address] [id number] [address] [place] [address], [place] [address] Nov, [facility] [address] [id number] [address] [place] [address], [place] [address] Nov, [facility] [address] [id number] [address] [place] [address], [place] [address] Nov, [facility] [address] [id number] [address] [place] [address], [place] [address] Nov, [facility] [address] [id number] [address] [place] [address], [place] [address] Oct, [facility] [address] [id number] [address] [place] [address], [place] [address] Oct, [facility] [address] [id number] [address] [place] [address], [place] [address] Oct, [facility] [address] [id number] [facility] [place] [address] Oct, [facility] [address] [id number] [address] [place] [address], [place] [address] Oct, [facility] [address] [id number] [address] [place] [address], [place] [address] Oct, [facility] [address] [id number] [address] [place] [address], [place] [address] Oct, [facility] [address] [id number] [address] [place] [address], [place] [address] Sep, [facility] [address] [id number] [address] [place] [address], [place] [address] Sep, [facility] [address] [id number] [address] [place] [address], [place] [address] Sep, [facility] [address] [id number] [address] [place] [address], [place] [address] Sep, [facility] [address] [id number] [address] [place] [address], [place] [address] Sep, [facility] [address] [id number] [address] [place] [address], [place] [address] Jul, [facility] [address] [id number] [address] [place] [address], [place] [address] Jul, [facility] [address] [id number] [address] [place] [address], [place] [address] Jul, [facility] [address] [id number] [address] [place] [address], [place] [address] Jul, [facility] [address] [id number] [address] [place] [address], [place] [address] Jul, [facility] [address] [id number] [address] [place] [address], [place] [address] Jul, [facility] [address] [id number] [facility] [place] [address] Jul, [facility] [address] [id number] [facility] [place] [address] Jul, [facility] [address] [id number] [facility] [place] [address] Jul, [facility] [address] [id number] [facility] [place] [address] Jul, [facility] [address] [id number] [facility] [place] [address] Jul, [facility] [address] [id number] [address] [place] [address], [place] [address] Jul, [facility] [address] [id number] [address] [place] [address], [place] [address] Jun, [facility] [address] [id number] [address] [place] [address], [place] [address] Jun, [facility] [address] [id number] [address] [place] [address], [place] [address] Jun, [facility] [address] [id number] [address] [place] [address], [place] [address] Jun, [facility] [address] [id number] [address] [place] [address], [place] [address] Jun, [facility] [address] [id number] [address] [place] [address], [place] [address] Jun, [facility] [address] [id number] [address] [place] [address], [place] [address] Jun, [facility] [address] [id number] [address] [place] [address], [place] [address] Jun, [facility] [address] [id number] [address] [place] [address], [place] [address] May, [facility] [address] [id number] [address] [place] [address], [place] [address] May, [facility] [address] [id number] [address] [place] [address], [place] [address] May, [facility] [address] [id number] [address] [place] [address], [place] [address] May, [facility] [address] [id number] [address] [place] [address], [place] [address] May, [facility] [address] [id number] [address] [place] [address], [place] [address] May, [facility] [address] [id number] [address] [place] [address], [place] [address] May, [facility] [address] [id number] [address] [place] [address], [place] [address] May, [facility] [address] [id number] [address] [place] [address], [place] [address] Apr, [facility] [address] [id number] [address] [place] [address], [place] [address] Apr, [facility] [address] [id number] [address] [place] [address], [place] [address] Apr, [facility] [address] [id number] [address] [place] [address], [place] [address] Apr, [facility] [address] [id number] [address] [place] [address], [place] [address] Mar, [facility] [address] [id number] [address] [place] [address], [place] [address] Mar, [facility] [address] [id number] [address] [place] [address], [place] [address] Mar, [facility] [address] [id number] [address] [place] [address], [place] [address] Feb, [facility] [address] [id number] [address] [place] [address], [place] [address] Feb, [facility] [address] [id number] [address] [place] [address], [place] [address] Feb, [facility] [address] [id number] [address] [place] [address], [place] [address] Feb, [facility] [address] [id number] [address] [place] [address], [place] [address] Feb, [facility] [address] [id number] [address] [place] [address], [place] [address] Feb, [facility] [address] [id number] [address] [place] [address], [place] [address] Jan, [facility] [address] [id number] [address] [place] [address], [place] [address] Jan, [facility] [address] [id number] [address] [place] [address], [place] [address] Jan, [facility] [address] [id number] [address] [place] [address], [place] [address] Jan, [facility] [address] [id number] [address] [place] [address], [place] [address] Jan, [facility] [address] [id number] [address] [place] [address], [place] [address] Jan, [facility] [address] [id number] [address] [place] [address], [place] [address] Jan, [facility] [address] [id number] [address] [place] [address], [place] [address] 25 Dec, 2012 [facility] [address] [id number] [address] [place] [address], [place] [address] 16 Dec, 2012 [facility] [address] [id number] [address] [place] [address], [place] [address] 10 Dec, 2012 [facility] [address] [id number] [address] [place] [address], [place] [address] 05 Dec, 2012 [facility] [address] [id number] [address] [place] [address], [place] [address] Nov, [facility] [address] [id number] [address] [place] [address], [place] [address] Nov, [facility] [address] [id number] [address] [place] [address], [place] [address] Nov, [facility] [address] [id number] [address] [place] [address], [place] [address] Nov, [facility] [address] [id number] [address] [place] [address], [place] [address] Nov, [facility] [address] [id number] [address] [place] [address], [place] [address] Nov, [facility] [address] [id number] [address] [place] [address], [place] [address] Nov, [facility] [address] [id number] [address] [place] [address], [place] [address] Oct, [facility] [address] [id number] [address] [place] [address], [place] [address] Oct, [facility] [address] [id number] [address] [place] [address], [place] [address] Oct, [facility] [address] [id number] [address] [place] [address], [place] [address] Oct, [facility] [address] [id number] [address] [place] [address], [place] [address] Oct, [facility] [address] [id number] [address] [place] [address], [place] [address] Oct, [facility] [address] [id number] [address] [place] [address], [place] [address] Oct, [facility] [address] [id number] [address] [place] [address], [place] [address] Oct, [facility] [address] [id number] [address] [place] [address], [place] [address] Sep, Suleiman PEREZ [address] [id number] [id number] 30 Aug, 2012 [facility] [address] [id number] [address] [place] [address], [place] [address] August, [facility] [address] [id number] [address] [place] [address], [place] [address] Jul, [facility] [address] [id number] [address] [place] [address], [place] [address] Jul, [facility] [address] [id number] [address] [place] [address], [place] [address] Jul, [facility] [address] [id number] [address] [place] [address], [place] [address] Jul, [facility] [address] [id number] [address] [place] [address], [place] [address] Jul, [facility] [address] [id number] [address] [place] [address], [place] [address] Jul, [facility] [address] [id number] [address] [place] [address], [place] [address] 16 Jul, 2012 [facility] [address] [id number] [address] [place] [address], [place] [address] Jun, [facility] [address] [id number] [address] [place] [address], [place] [address] Jun, [facility] [address] [id number] [address] [place] [address], [place] [address] Jun, [facility] [address] [id number] [address] [place] [address], [place] [address] Jun, [facility] [address] [id number] [address] [place] [address], [place] [address] Jun, [facility] [address] [id number] [address] [place] [address], [place] [address] 19 May, 2012 [facility] [address] [id number] [address] [place] [address], [place] [address] 18 May, 2012 [facility] [address] [id number] [address] [place] [address], [place] [address] 04 May, 2012 [facility] [address] [id number] [address] [place] [address], [place] [address] 15 Apr, 2012 [facility] [address] [id number] [address] [place] [address], [place] [address] 14 Apr, 2012 [facility] [address] [id number] [address] [place] [address], [place] [address] 07 Apr, 2012 [facility] [address] [id number] [address] [place] [address], [place] [address] Mar, [facility] [address] [id number] [address] [place] [address], [place] [address] 31 Mar, 2012 [facility] [address] [id number] [address] [place] [address], [place] [address] Mar, [facility] [address] [id number] [address] [place] [address], [place] [address] Mar, [facility] [address] [id number] [address] [place] [address], [place] [address] Mar, [facility] [address] [id number] [address] [place] [address], [place] [address] Mar, [facility] [address] [id number] [address] [place] [address], [place] [address] Feb, [facility] [address] [id number] [address] [place] [address] Feb, [facility] [address] [id number] [address] [place] [address], [place] [address] Jan, [facility] [address] [id number] [address] [place] [address], [place] [address] Jan, [facility] [address] [id number] [address] [place] [address], [place] [address] Dec, [facility] [address] [id number] [address] [place] [address], [place] [address] Nov, [facility] [address] [id number] [address] [place] [address], [place] [address] Nov, [facility] [address] [id number] [address] [place] [address], [place] [address] Nov, [facility] [address] [id number] [address] [place] [address], [place] [address] Nov, [facility] [address] [id number] [address] [place] [address], [place] [address] Oct, [facility] [address] [id number] [address] [place] [address], [place] [address] Oct, [facility] [address] [id number] [address] [place] [address], [place] [address] Oct, [facility] [address] [id number] [address] [place] [address], [place] [address] Sep, [facility] [address] [id number] [address] [place] [address], [place] [address] Sep, [facility] [address] [id number] [address] [place] [address], [place] [address] Sep, [facility] [address] [id number] [address] [place] [address], [place] [address] August, [facility] [address] [id number] [address] [place] [address], [place] [address] August, [facility] [address] [id number] [address] [place] [address], [place] [address] Jul, [facility] [address] [id number] [address] [place] [address], [place] [address] 24 Jul, 2011 [facility] [address] [id number] [address] [place] [address], [place] [address] Jul, [facility] [address] [id number] [address] [place] [address], [place] [address] Jul, [facility] [address] [id number] [address] [place] [address], [place] [address] Jun, [facility] [address] [id number] [address] [place] [address], [place] [address] May, [facility] [address] [id number] [address] [place] [address], [place] [address] Apr, [facility] [address] [id number] [address] [place] [address], [place] [address] Apr, [facility] [address] [id number] [address] [place] [address], [place] [address] Apr, [facility] [address] [id number] [address] [place] [address], [place] [address] Apr, [facility] [address] [id number] [address] [place] [address], [place] [address] Apr, [facility] [address] [id number] [address] [place] [address], [place] [address] Apr, [facility] [address] [id number] [address] [place] [address], [place] [address] Mar, [facility] [address] [id number] [address] [place] [address], [place] [address] Mar, [facility] [address] [id number] [address] [place] [address], [place] [address] Feb, [facility] [address] [id number] [address] [place] [address], [place] [address] Feb, [facility] [address] [id number] [address] [place] [address], [place] [address] 17 Feb, 2011 [facility] [address] [id number] [address] [place] [address], [place] [address] 09 Feb, 2011 [facility] [address] [id number] [address] [place] [address], [place] [address] 20 Jan, 2011 [facility] [address] [id number] [address] [place] [address], [place] [address] 18 Jan, 2011 [facility] [address] [id number] [address] [place] [address], [place] [address] 18 Jan, 2011 [facility] [address] [id number] [address] [place] [address], [place] [address] 18 Jan, 2011 [facility] [address] [id number] [address] [place] [address], [place] [address] 17 Nov, 2010 [facility] [address] [id number] [address] [place] [id number] Mar, [facility] [address] [id number] [address] [place] [address], [place] [address] Mar, [facility] [address] [id number] [address] [place] [id number] 30 Feb, 2010 [facility] [address] [id number] [address] [place] [address], [place] [address] Feb, [facility] [address] [id number] [address] [place] [address], [place] [address] Jan, [facility] [address] [id number] [address] [place] [address], [place] [address] Jan, [facility] [address] [id number] [address] [place] [id number] Sep, [facility] [address] [id number] [address] [place] [id number] May, [facility] [address] [id number] [address] [place] [id number] Apr, [facility] [address] [id number] [address] [place] [address], [place] [id number] Mar, [facility] [address] [id number] [address] [place] [id number] 15 Feb, 2009 [facility] [address] [id number] [address] [place] [phone] Feb, [facility] [address] [id number] [address] [place] [id number] 10 Feb, 2009 [facility] [address] [facility] [id number] [address] [place] [id number] 22 Jan, 2009 [facility] [address] [facility] [id number] [address] [place] [id number] Jan, [facility] [address] [facility] [id number] [address] [place] [id number] Jan, [facility] [address] [facility] [id number] [address] [place] [id number] Jan, [facility] [address] [facility] [id number] [address] [place] [id number] August, IMMUNIZATIONS No Known Immunizations SOCIAL HISTORY [...] age 6 Hospitalization History surgery Hospitalization History [facility] tie treatment few times for BH
--- OUTSIDE RECORDS SUMMARY | 2019-09-29 10:47 | XMS REPORT ---
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 Active 19589052 Problem Open-angle glaucoma of both eyes, unspecified glaucoma stage, unspecified open-angle glaucoma type H40.10X0 Acti ve 61512317 Problem Adjustment disorder, unspecified type F43.20 Active 05485968 Problem Obstructive sleep apnea G47.33 Active 85209779 Problem Hypertensive retinopathy of both eyes H35.033 Active 5940327 Problem Type 2 diabetes mellitus with complication E11.8 Active 97153842 Problem Essential hypertension I10 Active 60852026 Problem Diabetes E11.9 Active 05801569 Problem Bipolar disorder, in partial remission, most rec ent episode manic F31.73 Active 37873236 Problem Intermittent explosive disorder in adult F63.81 Active 13622859 Problem Other diabetic neurological complication associated with type 2 diabetes mellitus E11.49 Active 060107789 Problem Depression F32.9 Active 63677117 Problem Neuropathy G62.9 Active 462798225 Problem Intermittent explosive disorder F63.81 Active 70927506 Problem Bipolar disorder, unspecified F31.9 Active 53517785 Problem Mild intellectual disability F70 A ctive 03412524 Problem Reactive airway disease, mild intermittent, uncomplicated J45.20 Active 683662178 Problem Gastroesophageal reflux disease without esophagitis K21.9 Active 683600622 ALLERGIES No Information ENCOUNTERS Encounter Location Date Diagnosis [facility] [address] [facility] [id number] [address] [place] [phone] Dec, [facility] [address] [facility] [id number] [address] [place] [phone] Nov, [facility] [address] [facility] [id number] [address] [place] [phone] Oct, [facility] [address] [place] [id number] [place] [phone] Oct, Oral health maintenance stat us requiring routine preventive dental care K08.9 [facility] [address] [facility] [id number] [address] [place] [phone] August, Intermittent explosive disor salvatore in adult F63.81 ; Bipolar disorder, unspecified F31.9 and Mild intellectual disability F70 [facility] [address] [facility] [id number] [address] [place] [address] [id number] August, Dental caries K02.9 [facility] [address] [facility] [id number] [address] [place] [id number] Jul, Onychomycosis B35.1 ; Other diabetic neurological complication associated with type 2 diabetes mellitus E11.49 and Tinea pedis of both feet B35.3 [facility] [address] [facility] [id number] [address] [place] [address] [id number] Jul, Caries K02.9 [facility] [address] [facility] [id number] [address] [place] [phone] Jul, Type 2 diabetes mellitus wit h complication E11.8 ; Tobacco abuse Z72.0 and Bipolar disorder, unspecified F31.9 [facility] [address] [facility] [id number] [address] [place] [phone] Jun, [facility] [address] [facility] [id number] [address] [place] [address] [id number] Jun, Dental examination Z01.20 an d Oral health maintenance status requiring routine preventive dental care K08.9 [facility] [address] [facility] [id number] [address] [place] [phone] May, Bilateral impacted cerumen H 61.23 [facility] [address] [facility] [id number] [address] [place] [phone] Apr, Bipolar disorder, unspecifie d F31.9 ; Intermittent explosive disorder in adult F63.81 ; Type 2 diabetes mellitus with complication E11.8 ; Tobacco abuse Z72.0 and Colon cancer screening Z12.11 [facility] [address] [address] Apr, Onychomycosis B35.1 and Othe r diabetic neurological complication associated with type 2 diabetes mellitus E11.49 [facility] [address] [address] Apr, Intermittent explosive disor salvatore in adult F63.81 ; Bipolar disorder, unspecified F31.9 and Mild intellectual disability F70 [place] [address] [address] 03 Mar, 2018 Diabetes E11.9 [facility] [address] [address] Jan, Encounter for immunization Z 23 [facility] [address] [address] Jan, Tinea pedis of both feet B35 .3 ; Other diabetic neurological complication associated with type 2 diabetes mellitus E11.49 and Onychomycosis B35.1 [place] [address] [place] [id number] [address] [place] [phone] Nov, Type 2 diabetes mellitus wit h complication E11.8 [place] [address] [place] [id number] [address] [place] [address] Nov, [facility] [address] [address] Oct, Intermittent explosive disor salvatore in adult F63.81 ; Bipolar disorder, unspecified F31.9 and Mild intellectual disability F70 [facility] [address] [place] [id number] [address] [place] [address] Oct, [facility] [address] [place] [id number] [address] [place] [address] [id number] Oct, Dental examination Z01.20 [place] [address] [place] [address] Oct, Onychomycosis B35.1 and Othe r diabetic neurological complication associated with type 2 diabetes mellitus E11.49 [place] [address] [place] [id number] [address] [place] [phone] Sep, Type 2 diabetes mellitus wit h complication E11.8 and Colon cancer screening Z12.11 [place] [address] [place] [address] Sep, Type 2 diabetes mellitus wit h complication E11.8 ; Colon cancer screening Z12.11 and Neuropathy G62.9 [place] [address] [place] [id number] [address] [place] [address] August, Diabetes E11.9 [facility] [address] [place] [id number] [address] [place] [address] [id number] Jul, Dental examination Z01.20 [place] [address] [place] [address] 27 May, 2017 Mild intellectual disability F70 [place] [address] [address] 07 May, 2017 Mild intellectual disability F70 ; High risk medication use Z79.899 ; Intermittent explosive disorder in adult F63.81 and Bipolar disorder, unspecified F31.9 [place] [address] [place] [id number] [address] [place] [phone] May, [place] [address] [place] [id number] [address] [place] [phone] May, [place] [address] [place] [id number] [address] [place] [address] Apr, Type 2 diabetes mellitus wit h complication E11.8 ; Mild intellectual disability F70 ; Gastroesophageal reflux disease without esophagitis K21.9 ; Reactive airway disease, mild intermittent, uncomplicated J45.20 and Tobacco abuse Z72.0 [place] [address] [place] [id number] [address] [place] [address] Apr, High risk medication use Z79 .899 ; Mild intellectual disability F70 ; Intermittent explosive disorder in adult F63.81 and Bipolar disorder, unspecified F31.9 [facility] [address] [id number] [address] [place] [address] [id number] Mar, Encounter for dental exam an d cleaning w/o abnormal findings Z01.20 [facility] [address] [id number] [address] [place] [address] [phone] Mar, Dental examination Z01.20 [facility] [address] [id number] [address] [place] [phone] 12 Jan, 2017 [facility] [address] [id number] [address] [place] [phone] Jan, [facility] [address] [id number] [address] [place] [phone] Jan, Mild intellectual disability F70 ; Bipolar disorder, unspecified F31.9 and Intermittent explosive disorder in adult F63.81 [facility] [address] [id number] [address] [place] [phone] Jan, Diabetes E11.9 [facility] [address] [id number] [address] [place] [address] [id number] Dec, Encounter for dental examina tion and cleaning without abnormal findings Z01.20 [facility] [address] [id number] [address] [place] [phone] Dec, Bipolar disorder, unspecifie d F31.9 ; Intermittent explosive disorder in adult F63.81 and Mild intellectual disability F70 [facility] [address] [id number] [address] [place] [phone] Nov, Diabetes E11.9 [facility] [address] [id number] [address] [place] [phone] Nov, [facility] [address] [id number] [address] [place] [phone] Nov, Diabetes E11.9 and Colon can cer screening Z12.[address] [id number] [id number] 21 Sep, 2016 Dental examination Z01.20 [facility] [address] [id number] [address] [place] [address] [id number] 21 Sep, 2016 Encounter for dental examina tion and cleaning without abnormal findings Z01.20 [facility] [address] [id number] [address] [place] [id number] 13 Sep, 2016 Bipolar disorder, unspecifie d F31.9 [facility] [address] [id number] [address] [place] [phone] 12 Sep, 2016 Bipolar disorder, unspecifie d F31.9 [facility] [address] [facility] [id number] [address] [place] [phone] Jul, [facility] [address] [facility] [id number] [address] [place] [phone] Jul, Type 2 diabetes mellitus wit h complication E11.8 [facility] [address] [id number] [address] [place] [address] [id number] 15 Jun, 2016 Encounter for dental examina tion and cleaning without abnormal findings Z01.[address] [id number] [id number] 15 Jun, 2016 Dental examination Z01.20 [facility] [address] [facility] [id number] [address] [place] [phone] 18 Apr, 2016 Sports physical Z02.5 [facility] [address] [facility] [id number] [address] [place] [phone] 14 Mar, 2016 Bipolar disorder, in partial remission, most recent episode manic F31.73 and Intermittent explosive disorder in adult F63.81 [facility] [address] [facility] [id number] [address] [place] [phone] 08 Mar, 2016 [facility] [address] [facility] [id number] [address] [place] [phone] Mar, Diabetes E11.9 [facility] [address] [id number] [address] [place] [address] [id number] Feb, Encounter for dental examina tion and cleaning without abnormal findings Z01.20 [facility] [address] [id number] [address] [place] [phone] 22 Dec, 2015 Nocturnal hypoxemia G47.34 a nd Encounter for immunization Z23 [facility] [address] [facility] [id number] [address] [place] [phone] 15 Dec, 2015 [facility] [address] [facility] [id number] [address] [place] [phone] Dec, [facility] [address] [facility] [id number] [address] [place] [phone] Dec, Bipolar disorder, unspecifie d F31.9 [facility] [address] [id number] [address] [place] [address] [id number] Oct, Encounter for dental examina tion and cleaning without abnormal findings Z01.20 [place] [id number] [facility] [id number] [place] [address] [id number] Oct, Dental examination Z01.20 [facility] [address] [facility] [id number] [address] [place] [phone] Oct, Diabetes E11.9 [facility] [address] [facility] [id number] [address] [place] [phone] Oct, Diabetes E11.9 ; Reactive ai rway disease, mild intermittent, uncomplicated J45.20 and Tobacco abuse Z72.0 [facility] [address] [facility] [id number] [address] [place] [phone] Sep, Bipolar disorder, unspecifie d F31.9 and Depression F32.9 [facility] [address] [facility] [id number] [address] [place] [phone] Sep, [facility] [address] [facility] [id number] [address] [place] [phone] 20 May, 2016 Tinea pedis of both feet B35 .3 and DM w/o complication type II, uncontrolled E11.65 [place] [address] [address] Jul, [place] [address] [address] Jul, [place] [address] [phone] Jul, Obstructive sleep apnea G47. 33 [place] [address] [phone] Jun, Diabetes E11.9 [place] [address] [id number] Jun, [place] [address] [phone] Jun, [place] [address] [phone] Jun, Bipolar disorder, unspecifie d F31.9 and Mental retardation F79 [place] [address] [phone] Apr, [place] [address] [phone] Feb, Diabetes E11.9 ; Encounter f or immunization Z23 ; Cough R05 and Nicotine abuse Z72.0 [place] [address] [address] Jan, Bipolar disorder, unspecifie d F31.9 and Diabetes mellitus without mention of complication, type II or unspecified type, uncontrolled 250.02 [place] [address] [phone] Jan, [place] [address] [id number] Dec, Reactive airway disease 493. 90 and Enuresis 788.30 [place] [address] [id number] [address] [place] [phone] Dec, [facility] [address] [facility] [id number] [address] [place] [phone] Nov, [facility] [address] [facility] [id number] [address] [place] [phone] Nov, [facility] [address] [facility] [id number] [place] [phone] Nov, Annual physical exam V70.0 ; Urinary incontinence 788.30 ; Diabetes 250.00 and Hypertension 401.9 [facility] [address] [facility] [id number] [address] [place] [phone] Oct, Diabetes mellitus without me ntion of complication, type II or unspecified type, uncontrolled 250.02 [facility] [address] [facility] [id number] [address] [place] [phone] Oct, Diabetes mellitus without me ntion of complication, type II or unspecified type, uncontrolled 250.02 [facility] [address] [place] [id number] [address] [place] [phone] Oct, Diabetes mellitus without me ntion of complication, type II or unspecified type, uncontrolled 250.02 [facility] [address] [place] [id number] [address] [place] [phone] Oct, [facility] [address] [place] [id number] [address] [place] [phone] Oct, [facility] [address] [facility] [id number] [address] [place] [phone] Oct, Bipolar disorder, unspecifie d 296.80 [facility] [id number] [place] [address] [id number] Sep, Dental examination V72.2 [facility] [address] [facility] [id number] [address] [place] [phone] August, [facility] [address] [place] [id number] [place] [address] [id number] August, Dental examination V72.2 [facility] [address] [id number] [address] [place] [phone] August, [facility] [address] [id number] [address] [place] [phone] 14 Jul, 2014 [facility] [address] [id number] [address] [place] [phone] Jul, [facility] [address] [id number] [address] [place] [phone] 17 Jun, 2014 [facility] [address] [id number] [address] [place] [phone] Jun, [facility] [address] [id number] [address] [place] [phone] Jun, [facility] [address] [id number] [address] [place] [phone] Jun, [facility] [address] [id number] [address] [place] [phone] May, [facility] [address] [id number] [address] [place] [phone] 23 May, 2014 [facility] [address] [id number] [address] [place] [phone] 16 May, 2014 [facility] [address] [id number] [address] [place] [phone] 16 May, 2014 [facility] [address] [id number] [address] [place] [phone] 16 May, 2014 [facility] [address] [id number] [address] [place] [phone] 16 May, 2014 [facility] [address] [id number] [address] [place] [id number] 16 May, 2014 [facility] [address] [id number] [address] [place] [phone] May, 2014 [facility] [address] [id number] [facility] [place] [address] May, [facility] [address] [id number] [address] [place] [address], [place] [address] May, 2014 [facility] [address] [id number] [address] [place] [address], [place] [address] May, 2014 [facility] [address] [id number] [address] [place] [address], [place] [address] May, 2014 [facility] [address] [id number] [address] [place] [address], [place] [address] May, [facility] [address] [id number] [address] [place] [address], [place] [address] May, 2014 [facility] [address] [id number] [address] [place] [address], [place] [address] May, [facility] [address] [id number] [address] [place] [address], [place] [address] Apr, [facility] [address] [id number] [address] [place] [address], [place] [address] Apr, [facility] [address] [id number] [address] [place] [address], [place] [address] Apr, [facility] [address] [id number] [address] [place] [address], [place] [address] Apr, [facility] [address] [id number] [address] [place] [address], [place] [address] Apr, [facility] [address] [id number] [address] [place] [address], [place] [address] Apr, [facility] [address] [id number] [address] [place] [address], [place] [address] Apr, [facility] [address] [id number] [address] [place] [address], [place] [address] Apr, [facility] [address] [id number] [address] [place] [address], [place] [address] Apr, [facility] [address] [id number] [address] [place] [address], [place] [address] Apr, [facility] [address] [id number] [address] [place] [address], [place] [address] Apr, [facility] [address] [id number] [address] [place] [address], [place] [address] Apr, [facility] [address] [id number] [address] [place] [address], [place] [address] Mar, [facility] [address] [id number] [address] [place] [address], [place] [address] Mar, [facility] [address] [id number] [address] [place] [address], [place] [address] Mar, [facility] [address] [id number] [address] [place] [address], [place] [address] Mar, [facility] [address] [id number] [address] [place] [address], [place] [address] Mar, [facility] [address] [id number] [address] [place] [address], [place] [address] Mar, [facility] [address] [id number] [address] [place] [address], [place] [address] 13 Feb, 2014 [facility] [address] [id number] [address] [place] [address], [place] [address] Feb, [facility] [address] [id number] [address] [place] [address], [place] [address] Feb, [facility] [address] [id number] [address] [place] [address], [place] [address] 13 Feb, 2014 [facility] [address] [id number] [address] [place] [address], [place] [address] 14 Jan, 2014 [facility] [address] [id number] [address] [place] [address], [place] [address] 14 Jan, 2014 [facility] [address] [id number] [address] [place] [address], [place] [address] 14 Jan, 2014 [facility] [address] [id number] [address] [place] [address], [place] [address] Jan, [facility] [address] [id number] [address] [place] [address], [place] [address] Dec, [facility] [address] [id number] [address] [place] [address], [place] [address] Dec, [facility] [address] [id number] [address] [place] [address], [place] [address] Dec, [facility] [address] [id number] [address] [place] [address], [place] [address] Dec, [facility] [address] [id number] [address] [place] [address], [place] [address] Nov, [facility] [address] [id number] [address] [place] [address], [place] [address] Nov, [facility] [address] [id number] [address] [place] [address], [place] [address] Nov, [facility] [address] [id number] [address] [place] [address], [place] [address] Nov, [facility] [address] [id number] 95 [place] [address], [place] [address] Nov, [facility] [address] [id number] [address] [place] [address], [place] [address] Nov, [facility] [address] [id number] [address] [place] [address], [place] [address] Nov, [facility] [address] [id number] [address] [place] [address], [place] [address] Oct, [facility] [address] [id number] [address] [place] [address], [place] [address] Oct, [facility] [address] [id number] [address] [place] [address], [place] [address] Oct, [facility] [address] [id number] [facility] [place] [address] Oct, [facility] [address] [id number] [address] [place] [address], [place] [address] Oct, [facility] [address] [id number] [address] [place] [address], [place] [address] Oct, [facility] [address] [id number] [address] [place] [address], [place] [address] Oct, [facility] [address] [id number] [address] [place] [address], [place] [address] Sep, [facility] [address] [id number] [address] [place] [address], [place] [address] Sep, [facility] [address] [id number] [address] [place] [address], [place] [address] Sep, [facility] [address] [id number] [address] [place] [address], [place] [address] Sep, [facility] [address] [id number] [address] [place] [address], [place] [address] Sep, [facility] [address] [id number] [address] [place] [address], [place] [address] Jul, [facility] [address] [id number] [address] [place] [address], [place] [address] Jul, [facility] [address] [id number] [address] [place] [address], [place] [address] Jul, [facility] [address] [id number] [address] [place] [address], [place] [address] Jul, [facility] [address] [id number] [address] [place] [address], [place] [address] Jul, [facility] [address] [id number] [address] [place] [address], [place] [address] Jul, [facility] [address] [id number] [facility] [place] [address] Jul, [facility] [address] [id number] [facility] [place] [address] Jul, [facility] [address] [id number] [facility] [place] [address] Jul, [facility] [address] [id number] [facility] [place] [address] Jul, [facility] [address] [id number] [facility] [place] [address] Jul, [facility] [address] [id number] [address] [place] [address], [place] [address] Jul, [facility] [address] [id number] [address] [place] [address], [place] [address] Jun, [facility] [address] [id number] [address] [place] [address], [place] [address] Jun, [facility] [address] [id number] [address] [place] [address], [place] [address] Jun, [facility] [address] [id number] [address] [place] [address], [place] [address] Jun, [facility] [address] [id number] [address] [place] [address], [place] [address] Jun, [facility] [address] [id number] [address] [place] [address], [place] [address] Jun, [facility] [address] [id number] [address] [place] [address], [place] [address] Jun, [facility] [address] [id number] [address] [place] [address], [place] [address] Jun, [facility] [address] [id number] [address] [place] [address], [place] [address] May, [facility] [address] [id number] [address] [place] [address], [place] [address] May, [facility] [address] [id number] [address] [place] [address], [place] [address] May, [facility] [address] [id number] [address] [place] [address], [place] [address] May, [facility] [address] [id number] [address] [place] [address], [place] [address] May, [facility] [address] [id number] [address] [place] [address], [place] [address] May, [facility] [address] [id number] [address] [place] [address], [place] [address] May, [facility] [address] [id number] [address] [place] [address], [place] [address] May, [facility] [address] [id number] [address] [place] [address], [place] [address] Apr, [facility] [address] [id number] [address] [place] [address], [place] [address] Apr, [facility] [address] [id number] [address] [place] [address], [place] [address] Apr, [facility] [address] [id number] [address] [place] [address], [place] [address] Apr, [facility] [address] [id number] [address] [place] [address], [place] [address] Mar, [facility] [address] [id number] [address] [place] [address], [place] [address] Mar, [facility] [address] [id number] [address] [place] [address], [place] [address] Mar, [facility] [address] [id number] [address] [place] [address], [place] [address] Feb, [facility] [address] [id number] [address] [place] [address], [place] [address] Feb, [facility] [address] [id number] [address] [place] [address], [place] [address] Feb, [facility] [address] [id number] [address] [place] [address], [place] [address] Feb, [facility] [address] [id number] [address] [place] [address], [place] [address] Feb, [facility] [address] [id number] [address] [place] [address], [place] [address] Feb, [facility] [address] [id number] [address] [place] [address], [place] [address] Jan, [facility] [address] [id number] [address] [place] [address], [place] [address] Jan, [facility] [address] [id number] [address] [place] [address], [place] [address] Jan, [facility] [address] [id number] [address] [place] [address], [place] [address] Jan, [facility] [address] [id number] [address] [place] [address], [place] [address] Jan, [facility] [address] [id number] [address] [place] [address], [place] [address] Jan, [facility] [address] [id number] [address] [place] [address], [place] [address] Jan, [facility] [address] [id number] [address] [place] [address], [place] [address] 25 Dec, 2012 [facility] [address] [id number] [address] [place] [address], [place] [address] 16 Dec, 2012 [facility] [address] [id number] [address] [place] [address], [place] [address] 10 Dec, 2012 [facility] [address] [id number] [address] [place] [address], [place] [address] 05 Dec, 2012 [facility] [address] [id number] [address] [place] [address], [place] [address] Nov, [facility] [address] [id number] [address] [place] [address], [place] [address] Nov, [facility] [address] [id number] [address] [place] [address], [place] [address] Nov, [facility] [address] [id number] [address] [place] [address], [place] [address] Nov, [facility] [address] [id number] [address] [place] [address], [place] [address] Nov, [facility] [address] [id number] [address] [place] [address], [place] [address] Nov, [facility] [address] [id number] [address] [place] [address], [place] [address] Nov, [facility] [address] [id number] [address] [place] [address], [place] [address] Oct, [facility] [address] [id number] [address] [place] [address], [place] [address] Oct, [facility] [address] [id number] [address] [place] [address], [place] [address] Oct, [facility] [address] [id number] [address] [place] [address], [place] [address] Oct, [facility] [address] [id number] [address] [place] [address], [place] [address] Oct, [facility] [address] [id number] [address] [place] [address], [place] [address] Oct, [facility] [address] [id number] [address] [place] [address], [place] [address] Oct, [facility] [address] [id number] [address] [place] [address], [place] [address] Oct, [facility] [address] [id number] [address] [place] [address], [place] [address] Sep, Suleiman PEREZ [address] [id number] [id number] 30 Aug, 2012 [facility] [address] [id number] [address] [place] [address], [place] [address] August, [facility] [address] [id number] [address] [place] [address], [place] [address] Jul, [facility] [address] [id number] [address] [place] [address], [place] [address] Jul, [facility] [address] [id number] [address] [place] [address], [place] [address] Jul, [facility] [address] [id number] [address] [place] [address], [place] [address] Jul, [facility] [address] [id number] [address] [place] [address], [place] [address] Jul, [facility] [address] [id number] [address] [place] [address], [place] [address] Jul, [facility] [address] [id number] [address] [place] [address], [place] [address] 16 Jul, 2012 [facility] [address] [id number] [address] [place] [address], [place] [address] Jun, [facility] [address] [id number] [address] [place] [address], [place] [address] Jun, [facility] [address] [id number] [address] [place] [address], [place] [address] Jun, [facility] [address] [id number] [address] [place] [address], [place] [address] Jun, [facility] [address] [id number] [address] [place] [address], [place] [address] Jun, [facility] [address] [id number] [address] [place] [address], [place] [address] 19 May, 2012 [facility] [address] [id number] [address] [place] [address], [place] [address] 18 May, 2012 [facility] [address] [id number] [address] [place] [address], [place] [address] 04 May, 2012 [facility] [address] [id number] [address] [place] [address], [place] [address] 15 Apr, 2012 [facility] [address] [id number] [address] [place] [address], [place] [address] 14 Apr, 2012 [facility] [address] [id number] [address] [place] [address], [place] [address] 07 Apr, 2012 [facility] [address] [id number] [address] [place] [address], [place] [address] Mar, [facility] [address] [id number] [address] [place] [address], [place] [address] 31 Mar, 2012 [facility] [address] [id number] [address] [place] [address], [place] [address] Mar, [facility] [address] [id number] [address] [place] [address], [place] [address] Mar, [facility] [address] [id number] [address] [place] [address], [place] [address] Mar, [facility] [address] [id number] [address] [place] [address], [place] [address] Mar, [facility] [address] [id number] [address] [place] [address], [place] [address] Feb, [facility] [address] [id number] [address] [place] [address] Feb, [facility] [address] [id number] [address] [place] [address], [place] [address] Jan, [facility] [address] [id number] [address] [place] [address], [place] [address] Jan, [facility] [address] [id number] [address] [place] [address], [place] [address] Dec, [facility] [address] [id number] [address] [place] [address], [place] [address] Nov, [facility] [address] [id number] [address] [place] [address], [place] [address] Nov, [facility] [address] [id number] [address] [place] [address], [place] [address] Nov, [facility] [address] [id number] [address] [place] [address], [place] [address] Nov, [facility] [address] [id number] [address] [place] [address], [place] [address] Oct, [facility] [address] [id number] [address] [place] [address], [place] [address] Oct, [facility] [address] [id number] [address] [place] [address], [place] [address] Oct, [facility] [address] [id number] [address] [place] [address], [place] [address] Sep, [facility] [address] [id number] [address] [place] [address], [place] [address] Sep, [facility] [address] [id number] [address] [place] [address], [place] [address] Sep, [facility] [address] [id number] [address] [place] [address], [place] [address] August, [facility] [address] [id number] [address] [place] [address], [place] [address] August, [facility] [address] [id number] [address] [place] [address], [place] [address] Jul, [facility] [address] [id number] [address] [place] [address], [place] [address] 24 Jul, 2011 [facility] [address] [id number] [address] [place] [address], [place] [address] Jul, [facility] [address] [id number] [address] [place] [address], [place] [address] Jul, [facility] [address] [id number] [address] [place] [address], [place] [address] Jun, [facility] [address] [id number] [address] [place] [address], [place] [address] May, [facility] [address] [id number] [address] [place] [address], [place] [address] Apr, [facility] [address] [id number] [address] [place] [address], [place] [address] Apr, [facility] [address] [id number] [address] [place] [address], [place] [address] Apr, [facility] [address] [id number] [address] [place] [address], [place] [address] Apr, [facility] [address] [id number] [address] [place] [address], [place] [address] Apr, [facility] [address] [id number] [address] [place] [address], [place] [address] Apr, [facility] [address] [id number] [address] [place] [address], [place] [address] Mar, [facility] [address] [id number] [address] [place] [address], [place] [address] Mar, [facility] [address] [id number] [address] [place] [address], [place] [address] Feb, [facility] [address] [id number] [address] [place] [address], [place] [address] Feb, [facility] [address] [id number] [address] [place] [address], [place] [address] 17 Feb, 2011 [facility] [address] [id number] [address] [place] [address], [place] [address] 09 Feb, 2011 [facility] [address] [id number] [address] [place] [address], [place] [address] 20 Jan, 2011 [facility] [address] [id number] [address] [place] [address], [place] [address] 18 Jan, 2011 [facility] [address] [id number] [address] [place] [address], [place] [address] 18 Jan, 2011 [facility] [address] [id number] [address] [place] [address], [place] [address] 18 Jan, 2011 [facility] [address] [id number] [address] [place] [address], [place] [address] 17 Nov, 2010 [facility] [address] [id number] [address] [place] [phone] Mar, [facility] [address] [id number] [address] [place] [address], [place] [address] Mar, [facility] [address] [id number] [address] [place] [id number] 30 Feb, 2010 [facility] [address] [id number] [address] [place] [address], [place] [address] Feb, [facility] [address] [id number] [address] [place] [address], [place] [address] Jan, [facility] [address] [id number] [address] [place] [address], [place] [address] Jan, [facility] [address] [id number] [address] [place] [phone] Sep, [facility] [address] [id number] [address] [place] [phone] May, [facility] [address] [id number] [address] [place] [phone] Apr, [facility] [address] [id number] [address] [place] [address], [place] [address] Mar, [facility] [address] [id number] [address] [place] [phone] 15 Feb, 2009 [facility] [address] [id number] [address] [place] [id number] Feb, [facility] [address] [id number] [address] [place] [id number] 10 Feb, 2009 [facility] [address] [facility] [id number] [address] [place] [phone] 22 Jan, 2009 [facility] [address] [facility] [id number] [address] [place] [phone] Jan, [facility] [address] [facility] [id number] [address] [place] [phone] Jan, [facility] [address] [facility] [id number] [address] [place] [phone] Jan, [facility] [address] [facility] [id number] [address] [place] [id number] August, IMMUNIZATIONS No Known Immunizations SOCIAL HISTORY [...] age 6 Hospitalization History surgery Hospitalization History [facility], inny tie treatment few times for BH
--- OUTSIDE RECORDS SUMMARY | 2019-09-29 10:47 | XMS REPORT ---
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 Active 74130377 Problem Open-angle glaucoma of both eyes, unspecified glaucoma stage, unspecified open-angle glaucoma type H40.10X0 Acti ve 40701910 Problem Adjustment disorder, unspecified type F43.20 Active 84596823 Problem Obstructive sleep apnea G47.33 Active 82950235 Problem Hypertensive retinopathy of both eyes H35.033 Active 2132751 Problem Type 2 diabetes mellitus with complication E11.8 Active 16122570 Problem Essential hypertension I10 Active 26285766 Problem Diabetes E11.9 Active 15891167 Problem Bipolar disorder, in partial remission, most rec ent episode manic F31.73 Active 35797550 Problem Intermittent explosive disorder in adult F63.81 Active 55499444 Problem Other diabetic neurological complication associated with type 2 diabetes mellitus E11.49 Active 106226000 Problem Depression F32.9 Active 29114862 Problem Neuropathy G62.9 Active 541649452 Problem Intermittent explosive disorder F63.81 Active 11783701 Problem Bipolar disorder, unspecified F31.9 Active 13610959 Problem Mild intellectual disability F70 A ctive 58928463 Problem Reactive airway disease, mild intermittent, uncomplicated J45.20 Active 246640943 Problem Gastroesophageal reflux disease without esophagitis K21.9 Active [id number] ALLERGIES No Information ENCOUNTERS Encounter Location Date Diagnosis [facility] [address] [facility] [id number] [address] [place] [address] Dec, [facility] [address] [facility] [id number] [address] [place] [phone] Nov, [facility] [address] [id number] [address] [place] [phone] Oct, [facility] [id number] [place] [phone] Oct, Oral health maintenance stat us requiring routine preventive dental care K08.9 [facility] [address] [id number] [address] [place] [id number] August, Intermittent explosive disor salvatore in adult F63.81 ; Bipolar disorder, unspecified F31.9 and Mild intellectual disability F70 [facility] [address] [id number] [address] [place] [address] [phone] August, Dental caries K02.9 [facility] [address] [facility] [id number] [address] [place] [phone] Jul, Onychomycosis B35.1 ; Other diabetic neurological complication associated with type 2 diabetes mellitus E11.49 and Tinea pedis of both feet B35.3 [facility] [address] [id number] [address] [place] [address] [id number] Jul, Caries K02.9 [facility] [address] [facility] [id number] [address] [place] [phone] Jul, Type 2 diabetes mellitus wit h complication E11.8 ; Tobacco abuse Z72.0 and Bipolar disorder, unspecified F31.9 [facility] [address] [id number] [address] [place] [address] Jun, [facility] [address] [id number] [address] [place] [address] [phone] Jun, Dental examination Z01.20 an d Oral health maintenance status requiring routine preventive dental care K08.9 [facility] [address] [id number] [address] [place] [phone] May, Bilateral impacted cerumen H 61.23 [facility] [address] [place] [id number] [address] [place] [phone] Apr, Bipolar disorder, unspecifie d F31.9 ; Intermittent explosive disorder in adult F63.81 ; Type 2 diabetes mellitus with complication E11.8 ; Tobacco abuse Z72.0 and Colon cancer screening Z12.11 [facility] [address] [facility] [id number] [address] [place] [phone] Apr, Onychomycosis B35.1 and Othe r diabetic neurological complication associated with type 2 diabetes mellitus E11.49 [facility] [address] [facility] [id number] [address] [place] [phone] Apr, Intermittent explosive disor salvatore in adult F63.81 ; Bipolar disorder, unspecified F31.9 and Mild intellectual disability F70 [facility] [address] [place] [id number] [address] [place] [address] Mar, Diabetes E11.9 [facility] [address] [place] [id number] [address] [place] [phone] Jan, Encounter for immunization Z 23 [facility] [address] [place] [id number] [address] [place] [address] Jan, Tinea pedis of both feet B35 .3 ; Other diabetic neurological complication associated with type 2 diabetes mellitus E11.49 and Onychomycosis B35.1 [facility] [id number] [place] [address] Nov, Type 2 diabetes mellitus wit h complication E11.8 [facility] [address] [place] [id number] [address] [place] [phone] Nov, [facility] [address] [facility] [id number] [address] [place] [phone] Oct, Intermittent explosive disor salvatore in adult F63.81 ; Bipolar disorder, unspecified F31.9 and Mild intellectual disability F70 [facility] [address] [place] [id number] [address] [place] [phone] Oct, [facility] [address] [facility] [id number] [address] [place] [address] [id number] 11 Oct, 2017 Dental examination Z01.20 [facility] [address] [facility] [id number] [address] [place] [phone] 06 Oct, 2017 Onychomycosis B35.1 and Othe r diabetic neurological complication associated with type 2 diabetes mellitus E11.49 [facility] [address] [facility] [id number] [address] [place] [phone] Sep, Type 2 diabetes mellitus wit h complication E11.8 and Colon cancer screening Z12.11 [facility] [address] [facility] [id number] [address] [place] [phone] Sep, Type 2 diabetes mellitus wit h complication E11.8 ; Colon cancer screening Z12.11 and Neuropathy G62.9 [facility] [address] [facility] [id number] [address] [place] [phone] August, Diabetes E11.9 [facility] [address] [facility] [id number] [address] [place] [address] [phone] Jul, Dental examination Z01.20 [facility] [address] [facility] [id number] [address] [place] [phone] 27 May, 2017 Mild intellectual disability F70 [facility] [address] [facility] [id number] [address] [place] [phone] May, Mild intellectual disability F70 ; High risk medication use Z79.899 ; Intermittent explosive disorder in adult F63.81 and Bipolar disorder, unspecified F31.9 [facility] [address] [facility] [id number] [address] [place] [phone] May, [facility] [address] [facility] [id number] [address] [place] [phone] May, [facility] [address] [facility] [id number] [address] [place] [phone] Apr, Type 2 diabetes mellitus wit h complication E11.8 ; Mild intellectual disability F70 ; Gastroesophageal reflux disease without esophagitis K21.9 ; Reactive airway disease, mild intermittent, uncomplicated J45.20 and Tobacco abuse Z72.0 [facility] [address] [id number] [address] [place] [address] Apr, High risk medication use Z79 .899 ; Mild intellectual disability F70 ; Intermittent explosive disorder in adult F63.81 and Bipolar disorder, unspecified F31.9 [facility] [address] [id number] [address] [place] [address] [id number] Mar, Dental examination Z01.20 [facility] [address] [id number] [address] [place] [address] [id number] Mar, Encounter for dental exam an d cleaning w/o abnormal findings Z01.20 [facility] [address] [id number] [address] [place] [phone] 12 Jan, 2017 [facility] [address] [id number] [address] [place] [phone] Jan, [facility] [address] [id number] [address] [place] [phone] Jan, Mild intellectual disability F70 ; Bipolar disorder, unspecified F31.9 and Intermittent explosive disorder in adult F63.81 [facility] [address] [id number] [address] [place] [phone] 02 Jan, 2017 Diabetes E11.9 [facility] [address] [id number] [address] [place] [address] [id number] Dec, Encounter for dental examina tion and cleaning without abnormal findings Z01.20 [facility] [address] [id number] [address] [place] [phone] Dec, Bipolar disorder, unspecifie d F31.9 ; Intermittent explosive disorder in adult F63.81 and Mild intellectual disability F70 [facility] [address] [id number] [address] [place] [phone] Nov, Diabetes E11.9 [facility] [address] [id number] [address] [place] [id number] Nov, [facility] [address] [facility] [id number] [address] [place] [phone] 14 Nov, 2016 Diabetes E11.9 and Colon can cer screening Z12.[address] [id number] [id number] 21 Sep, 2016 Dental examination Z01.20 [facility] [address] [id number] [address] [place] [address] [id number] 21 Sep, 2016 Encounter for dental examina tion and cleaning without abnormal findings Z01.20 [facility] [address] [facility] [id number] [address] [place] [phone] 13 Sep, 2016 Bipolar disorder, unspecifie d F31.9 [facility] [address] [facility] [id number] [address] [place] [phone] 12 Sep, 2016 Bipolar disorder, unspecifie d F31.9 [facility] [address] [facility] [id number] [address] [place] [phone] 26 Jul, 2016 [facility] [address] [facility] [id number] [address] [place] [phone] 13 Jul, 2016 Type 2 diabetes mellitus wit h complication E11.[address] [id number] [id number] 15 Jun, 2016 Dental examination Z01.20 [facility] [address] [id number] [address] [place] [address] [id number] 15 Jun, 2016 Encounter for dental examina tion and cleaning without abnormal findings Z01.20 [facility] [address] [facility] [id number] [address] [place] [phone] 18 Apr, 2016 Sports physical Z02.5 [facility] [address] [facility] [id number] [address] [place] [phone] 14 Mar, 2016 Bipolar disorder, in partial remission, most recent episode manic F31.73 and Intermittent explosive disorder in adult F63.81 [facility] [address] [facility] [id number] [address] [place] [phone] Mar, [facility] [address] [facility] [id number] [address] [place] [phone] Mar, Diabetes E11.9 [facility] [address] [place] [id number] [place] [address] [id number] Feb, Encounter for dental examina tion and cleaning without abnormal findings Z01.20 [facility] [address] [facility] [id number] [address] [place] [phone] 22 Dec, 2015 Nocturnal hypoxemia G47.34 a nd Encounter for immunization Z23 [facility] [address] [facility] [id number] [address] [place] [phone] 15 Dec, 2015 [facility] [address] [facility] [id number] [address] [place] [phone] Dec, [place] [address] [facility] [id number] [place] [phone] Dec, Bipolar disorder, unspecifie d F31.9 [facility] [address] [place] [id number] [address] [place] [address] [phone] Oct, Encounter for dental examina tion and cleaning without abnormal findings Z01.20 [place] [id number] [facility] [id number] [place] [address] [id number] Oct, Dental examination Z01.20 [facility] [address] [place] [id number] [address] [place] [phone] Oct, Diabetes E11.9 [facility] [address] [place] [id number] [address] [place] [id number] Oct, Diabetes E11.9 ; Reactive ai rway disease, mild intermittent, uncomplicated J45.20 and Tobacco abuse Z72.0 [facility] [address] [facility] [id number] [address] [place] [phone] Sep, Bipolar disorder, unspecifie d F31.9 and Depression F32.9 [place] [address] [facility] [id number] [address] [place] [phone] Sep, [facility] [address] [address] August, Tinea pedis of both feet B35 .3 and DM w/o complication type II, uncontrolled E11.65 [place] [address] [place] [id number] [address] [place] [phone] Jul, [place] [address] [address] Jul, [place] [address] [address] Jul, Obstructive sleep apnea G47. 33 [place] [address] [address] Jun, Diabetes E11.9 [place] [address] [address] Jun, [place] [address] [address] Jun, [place] [address] [address] Jun, Bipolar disorder, unspecifie d F31.9 and Mental retardation F79 [place] [address] [phone] Apr, [place] [address] [address] Feb, Diabetes E11.9 ; Encounter f or immunization Z23 ; Cough R05 and Nicotine abuse Z72.0 [place] [address] [address] Jan, Bipolar disorder, unspecifie d F31.9 and Diabetes mellitus without mention of complication, type II or unspecified type, uncontrolled 250.02 [place] [address] [address] Jan, [place] [address] [address] Dec, Reactive airway disease 493. 90 and Enuresis 788.30 [facility] [address] [address] Dec, [facility] [address] [address] Nov, [facility] [address] [address] Nov, [facility] [address] [address] Nov, Annual physical exam V70.0 ; Urinary incontinence 788.30 ; Diabetes 250.00 and Hypertension 401.9 [place] [address] [address] Oct, Diabetes mellitus without me ntion of complication, type II or unspecified type, uncontrolled 250.02 [facility] [address] [place] [id number] [address] [place] [phone] Oct, Diabetes mellitus without me ntion of complication, type II or unspecified type, uncontrolled 250.02 [facility] [address] [address] Oct, Diabetes mellitus without me ntion of complication, type II or unspecified type, uncontrolled 250.02 [place] [address] [place] [id number] [address] [place] [address] Oct, [facility] [address] [place] [id number] [address] [place] [address] Oct, [facility] [address] [address] Oct, Bipolar disorder, unspecifie d 296.80 [facility] [address] [id number] [address] [place] [address] [id number] Sep, Dental examination V72.2 [facility] [address] [place] [id number] [address] [place] [phone] August, [facility] [address] [id number] [address] [place] [address] [id number] August, Dental examination V72.2 [facility] [address] [id number] [address] [place] [phone] August, [facility] [address] [id number] [address] [place] [phone] Jul, [facility] [address] [id number] [address] [place] [phone] Jul, [facility] [address] [id number] [address] [place] [phone] Jun, [facility] [address] [id number] [address] [place] [phone] Jun, [facility] [address] [id number] [address] [place] [phone] Jun, [facility] [address] [id number] [address] [place] [phone] Jun, [facility] [address] [id number] [address] [place] [id number] May, [facility] [address] [id number] [address] [place] [phone] May, [facility] [address] [id number] [address] [place] [phone] May, 2014 [facility] [address] [id number] [address] [place] [phone] May, 2014 [facility] [address] [id number] [address] [place] [phone] May, [facility] [address] [id number] [address] [place] [phone] May, 2014 [facility] [address] [id number] [address] [place] [phone] May, [facility] [address] [id number] [address] [place] [address], [place] [address] May, 2014 [facility] [address] [id number] [address] [place] [address], [place] [address] May, 2014 [facility] [address] [id number] [address] [place] [address], [place] [address] May, 2014 [facility] [address] [id number] [address] [place] [address], [place] [address] May, 2014 [facility] [address] [id number] [address] [place] [address], [place] [address] May, 2014 [facility] [address] [id number] [address] [place] [address], [place] [address] May, 2014 [facility] [address] [id number] [address] [place] [address], [place] [address] May, 2014 [facility] [address] [id number] [address] [place] [address], [place] [address] May, [facility] [address] [id number] [address] [place] [address], [place] [address] Apr, [facility] [address] [id number] [address] [place] [address], [place] [address] Apr, [facility] [address] [id number] [address] [place] [address], [place] [address] Apr, [facility] [address] [id number] [address] [place] [address], [place] [address] Apr, [facility] [address] [id number] [address] [place] [address], [place] [address] Apr, [facility] [address] [id number] [address] [place] [address], [place] [address] Apr, [facility] [address] [id number] [address] [place] [address], [place] [address] Apr, [facility] [address] [id number] [address] [place] [address], [place] [address] Apr, [facility] [address] [id number] [address] [place] [address], [place] [address] Apr, [facility] [address] [id number] [address] [place] [address], [place] [address] Apr, [facility] [address] [id number] [address] [place] [address], [place] [address] Apr, [facility] [address] [id number] [address] [place] [address], [place] [address] Apr, [facility] [address] [id number] [address] [place] [address], [place] [address] Mar, [facility] [address] [id number] [address] [place] [address], [place] [address] Mar, [facility] [address] [id number] [address] [place] [address], [place] [address] Mar, [facility] [address] [id number] [address] [place] [address], [place] [address] Mar, [facility] [address] [id number] [address] [place] [address], [place] [address] Mar, [facility] [address] [id number] [address] [place] [address], [place] [address] Mar, [facility] [address] [id number] [address] [place] [address], [place] [address] Feb, [facility] [address] [id number] [address] [place] [address], [place] [address] Feb, [facility] [address] [id number] [address] [place] [address], [place] [address] 13 Feb, 2014 [facility] [address] [id number] [address] [place] [address], [place] [address] 13 Feb, 2014 [facility] [address] [id number] [address] [place] [address], [place] [address] 14 Jan, 2014 [facility] [address] [id number] [address] [place] [address], [place] [address] 14 Jan, 2014 [facility] [address] [id number] [address] [place] [address], [place] [address] 14 Jan, 2014 [facility] [address] [id number] [address] [place] [address], [place] [address] 14 Jan, 2014 [facility] [address] [id number] [address] [place] [address], [place] [address] 22 Dec, 2013 [facility] [address] [id number] [address] [place] [address], [place] [address] 22 Dec, 2013 [facility] [address] [id number] [address] [place] [address], [place] [address] 15 Dec, 2013 [facility] [address] [id number] [address] [place] [address], [place] [address] 15 Dec, 2013 [facility] [address] [id number] [address] [place] [address], [place] [address] Nov, [facility] [address] [id number] [address] [place] [address], [place] [address] Nov, [facility] [address] [id number] [address] [place] [address], [place] [address] Nov, [facility] [address] [id number] [address] [place] [address], [place] [address] Nov, [facility] [address] [id number] [address] [place] [address], [place] [address] Nov, [facility] [address] [id number] [address] [place] [address], [place] [address] Nov, [facility] [address] [id number] [address] [place] [address], [place] [address] Nov, [facility] [address] [id number] [address] [place] [address], [place] [address] Oct, [facility] [address] [id number] [address] [place] [address], [place] [address] Oct, [facility] [address] [id number] [address] [place] [address], [place] [address] Oct, [facility] [address] [id number] [address] [place] [address], [place] [address] Oct, [facility] [address] [id number] [address] [place] [address], [place] [address] Oct, [facility] [address] [id number] [address] [place] [address], [place] [address] Oct, [facility] [address] [id number] [address] [place] [address], [place] [address] Oct, [facility] [address] [id number] [address] [place] [address], [place] [address] Sep, [facility] [address] [id number] [address] [place] [address], [place] [address] Sep, [facility] [address] [id number] [address] [place] [address], [place] [address] Sep, [facility] [address] [id number] [address] [place] [address], [place] [address] Sep, [facility] [address] [id number] [address] [place] [address], [place] [address] Sep, [facility] [address] [id number] [address] [place] [address], [place] [address] Jul, [facility] [address] [id number] [address] [place] [address], [place] [address] 24 Jul, 2013 [facility] [address] [id number] [address] [place] [address], [place] [address] Jul, [facility] [address] [id number] [address] [place] [address], [place] [address] Jul, [facility] [address] [id number] [address] [place] [address], [place] [address] 15 Jul, 2013 [facility] [address] [id number] [facility] [place] [address] 15 Jul, 2013 [facility] [address] [id number] [facility] [place] [address] Jul, [facility] [address] [id number] [facility] [place] [address] Jul, [facility] [address] [id number] [address] [place] [address], [place] [address] Jul, [facility] [address] [id number] [facility] [place] [address] Jul, [facility] [address] [id number] [address] [place] [address], [place] [address] Jul, [facility] [address] [id number] [address] [place] [address], [place] [address] Jul, [facility] [address] [id number] [address] [place] [address], [place] [address] Jun, [facility] [address] [id number] [address] [place] [address], [place] [address] Jun, [facility] [address] [id number] [address] [place] [address], [place] [address] Jun, [facility] [address] [id number] [address] [place] [address], [place] [address] Jun, [facility] [address] [id number] [address] [place] [address], [place] [address] Jun, [facility] [address] [id number] [address] [place] [address], [place] [address] Jun, [facility] [address] [id number] [address] [place] [address], [place] [address] Jun, [facility] [address] [id number] [address] [place] [address], [place] [address] Jun, [facility] [address] [id number] [address] [place] [address], [place] [address] May, [facility] [address] [id number] [address] [place] [address], [place] [address] May, [facility] [address] [id number] [address] [place] [address], [place] [address] May, [facility] [address] [id number] [address] [place] [address], [place] [address] May, [facility] [address] [id number] [address] [place] [address], [place] [address] May, [facility] [address] [id number] [address] [place] [address], [place] [address] May, [facility] [address] [id number] [address] [place] [address], [place] [address] May, [facility] [address] [id number] [address] [place] [address], [place] [address] May, [facility] [address] [id number] [address] [place] [address], [place] [address] Apr, [facility] [address] [id number] [address] [place] [address], [place] [address] Apr, [facility] [address] [id number] [address] [place] [address], [place] [address] Apr, [facility] [address] [id number] [address] [place] [address], [place] [address] Apr, [facility] [address] [id number] [address] [place] [address], [place] [address] Mar, [facility] [address] [id number] [address] [place] [address], [place] [address] Mar, [facility] [address] [id number] [address] [place] [address], [place] [address] Mar, [facility] [address] [id number] [address] [place] [address], [place] [address] Feb, [facility] [address] [id number] [address] [place] [address], [place] [address] Feb, [facility] [address] [id number] [address] [place] [address], [place] [address] Feb, [facility] [address] [id number] [address] [place] [address], [place] [address] Feb, [facility] [address] [id number] [address] [place] [address], [place] [address] Feb, [facility] [address] [id number] [address] [place] [address], [place] [address] Feb, [facility] [address] [id number] [address] [place] [address], [place] [address] Jan, [facility] [address] [id number] [address] [place] [address], [place] [address] Jan, [facility] [address] [id number] [address] [place] [address], [place] [address] Jan, [facility] [address] [id number] [address] [place] [address], [place] [address] Jan, [facility] [address] [id number] [address] [place] [address], [place] [address] Jan, [facility] [address] [id number] [address] [place] [address], [place] [address] Jan, [facility] [address] [id number] [address] [place] [address], [place] [address] Jan, [facility] [address] [id number] [address] [place] [address], [place] [address] 25 Dec, 2012 [facility] [address] [id number] [address] [place] [address], [place] [address] 16 Sep2012 [facility] [address] [id number] [address] [place] [address], [place] [address] 10 Dec, 2012 [facility] [address] [id number] [address] [place] [address], [place] [address] Dec, [facility] [address] [id number] [address] [place] [address], [place] [address] Nov, [facility] [address] [id number] [address] [place] [address], [place] [address] Nov, [facility] [address] [id number] [address] [place] [address], [place] [address] Nov, [facility] [address] [id number] [address] [place] [address], [place] [address] Nov, [facility] [address] [id number] [address] [place] [address], [place] [address] Nov, [facility] [address] [id number] [address] [place] [address], [place] [address] Nov, [facility] [address] [id number] [address] [place] [address], [place] [address] Nov, [facility] [address] [id number] [address] [place] [address], [place] [address] Oct, [facility] [address] [id number] [address] [place] [address], [place] [address] Oct, [facility] [address] [id number] [address] [place] [address], [place] [address] Oct, [facility] [address] [id number] [address] [place] [address], [place] [address] Oct, [facility] [address] [id number] [address] [place] [address], [place] [address] Oct, [facility] [address] [id number] [address] [place] [address], [place] [address] Oct, [facility] [address] [id number] [address] [place] [address], [place] [address] Oct, [facility] [address] [id number] [address] [place] [address], [place] [address] Oct, [facility] [address] [id number] [address] [place] [address], [place] [address] Sep, [facility] [address] [id number] [id number] August, [facility] [address] [id number] [address] [place] [address], [place] [address] August, [facility] [address] [id number] [address] [place] [address], [place] [address] Jul, [facility] [address] [id number] [address] [place] [address], [place] [address] Jul, [facility] [address] [id number] [address] [place] [address], [place] [address] Jul, [facility] [address] [id number] [address] [place] [address], [place] [address] Jul, [facility] [address] [id number] [address] [place] [address], [place] [address] Jul, [facility] [address] [id number] [address] [place] [address], [place] [address] 17 Jul, 2012 [facility] [address] [id number] [address] [place] [address], [place] [address] 16 Jul, 2012 [facility] [address] [id number] [address] [place] [address], [place] [address] Jun, [facility] [address] [id number] [address] [place] [address], [place] [address] Jun, [facility] [address] [id number] [address] [place] [address], [place] [address] Jun, [facility] [address] [id number] [address] [place] [address], [place] [address] Jun, [facility] [address] [id number] [address] [place] [address], [place] [address] Jun, [facility] [address] [id number] [address] [place] [address], [place] [address] May, [facility] [address] [id number] [address] [place] [address], [place] [address] 18 May, 2012 [facility] [address] [id number] [address] [place] [address], [place] [address] 04 May, 2012 [facility] [address] [id number] [address] [place] [address], [place] [address] 15 Apr, 2012 [facility] [address] [id number] [address] [place] [address], [place] [address] 14 Apr, 2012 [facility] [address] [id number] [address] [place] [address], [place] [address] Apr, [facility] [address] [id number] [address] [place] [address], [place] [address] Mar, [facility] [address] [id number] [address] [place] [address], [place] [address] Mar, [facility] [address] [id number] [address] [place] [address], [place] [address] Mar, [facility] [address] [id number] [address] [place] [address], [place] [address] Mar, [facility] [address] [id number] [address] [place] [address] Mar, [facility] [address] [id number] [address] [place] [address], [place] [address] Mar, [facility] [address] [id number] [address] [place] [address] Feb, [facility] [address] [id number] [address] [place] [address], [place] [address] Feb, [facility] [address] [id number] [address] [place] [address], [place] [address] Jan, [facility] [address] [id number] [address] [place] [address] Jan, [facility] [address] [id number] [address] [place] [address] Dec, [facility] [address] [id number] [address] [place] [address], [place] [address] Nov, [facility] [address] [id number] [address] [place] [address], [place] [address] Nov, [facility] [address] [id number] [address] [place] [address], [place] [address] Nov, [facility] [address] [id number] [address] [place] [address], [place] [address] Nov, [facility] [address] [id number] [address] [place] [address], [place] [address] Oct, [facility] [address] [id number] [address] [place] [address], [place] [address] Oct, [facility] [address] [id number] [address] [place] [address], [place] [address] Oct, [facility] [address] [id number] [address] [place] [address], [place] [address] Sep, [facility] [address] [id number] [address] [place] [address], [place] [address] Sep, [facility] [address] [id number] [address] [place] [address], [place] [address] Sep, [facility] [address] [id number] [address] [place] [address], [place] [address] August, [facility] [address] [id number] [address] [place] [address], [place] [address] August, [facility] [address] [id number] [address] [place] [address], [place] [address] Jul, [facility] [address] [id number] [address] [place] [address], [place] [address] Jul, [facility] [address] [id number] [address] [place] [address], [place] [address] Jul, [facility] [address] [id number] [address] [place] [address], [place] [address] Jul, [facility] [address] [id number] [address] [place] [address], [place] [address] Jun, [facility] [address] [id number] [address] [place] [address], [place] [address] May, [facility] [address] [id number] [address] [place] [address], [place] [address] Apr, [facility] [address] [id number] [address] [place] [address], [place] [address] Apr, [facility] [address] [id number] [address] [place] [address], [place] [address] Apr, [facility] [address] [id number] [address] [place] [address], [place] [address] Apr, [facility] [address] [id number] [address] [place] [address], [place] [address] Apr, [facility] [address] [id number] [address] [place] [address], [place] [address] Apr, [facility] [address] [id number] [address] [place] [address], [place] [address] Mar, [facility] [address] [id number] [address] [place] [address], [place] [address] Mar, [facility] [address] [id number] [address] [place] [address], [place] [address] Feb, [facility] [address] [id number] [address] [place] [address], [place] [address] 18 Feb, 2011 [facility] [address] [id number] [address] [place] [address], [place] [address] 17 Feb, 2011 [facility] [address] [id number] [address] [place] [address], [place] [address] 09 Feb, 2011 [facility] [address] [id number] [address] [place] [address], [place] [address] 20 Jan, 2011 [facility] [address] [id number] [address] [place] [address], [place] [address] 18 Jan, 2011 [facility] [address] [id number] [address] [place] [address], [place] [id number] 18 Jan, 2011 [facility] [address] [id number] [address] [place] [address], [place] [id number] 18 Jan, 2011 [facility] [address] [id number] [address] [place] [address], [place] [address] 17 Nov, 2010 [facility] [address] [id number] [address] [place] [address], [place] [address] Mar, [facility] [address] [id number] [address] [place] [address], [place] [address] Mar, [facility] [address] [id number] [address] [place] [address], [place] [address] 30 Feb, 2010 [facility] [address] [id number] [address] [place] [id number] 15 Feb, 2010 [facility] [address] [id number] [address] [place] [address], [place] [address] Jan, [facility] [address] [id number] [address] [place] [id number] Jan, [facility] [address] [id number] [address] [place] [id number] 15 Sep, 2009 [facility] [address] [id number] [address] [place] [id number] 16 May, 2009 [facility] [address] [id number] [address] [place] [address], [place] [address] Apr, [facility] [address] [id number] [address] [place] [id number] Mar, [facility] [address] [id number] [address] [place] [id number] 15 Feb, 2009 [facility] [address] [id number] [address] [place] [id number] 10 Feb, 2009 [facility] [address] [id number] [address] [place] [id number] Feb, [facility] [address] [id number] [address] [place] [id number] 22 Jan, 2009 [facility] [address] [facility] [id number] [address] [place] [id number] Jan, [facility] [address] [facility] [id number] [address] [place] [id number] Jan, [facility] [address] [facility] [id number] [address] [place] [id number] Jan, [facility] [address] [facility] [id number] [address] [place] [id number] August, IMMUNIZATIONS No Known Immunizations SOCIAL HISTORY [...] age 6 Hospitalization History surgery Hospitalization History [facility], indeann webber treatment few times for BH
--- OUTSIDE RECORDS SUMMARY | 2019-09-29 10:48 | XMS REPORT ---
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 Active 26262952 Problem Open-angle glaucoma of both eyes, unspecified glaucoma stage, unspecified open-angle glaucoma type H40.10X0 Acti ve 21189467 Problem Adjustment disorder, unspecified type F43.20 Active 90917650 Problem Obstructive sleep apnea G47.33 Active 64802180 Problem Hypertensive retinopathy of both eyes H35.033 Active 4840549 Problem Type 2 diabetes mellitus with complication E11.8 Active 70275569 Problem Essential hypertension I10 Active 99816951 Problem Diabetes E11.9 Active 98342335 Problem Bipolar disorder, in partial remission, most rec ent episode manic F31.73 Active 30299051 Problem Intermittent explosive disorder in adult F63.81 Active 92692155 Problem Other diabetic neurological complication associated with type 2 diabetes mellitus E11.49 Active 915607821 Problem Depression F32.9 Active 22514128 Problem Neuropathy G62.9 Active 158415309 Problem Intermittent explosive disorder F63.81 Active 86175714 Problem Bipolar disorder, unspecified F31.9 Active 08591758 Problem Mild intellectual disability F70 A ctive 94016418 Problem Reactive airway disease, mild intermittent, uncomplicated J45.20 Active 040899635 Problem Gastroesophageal reflux disease without esophagitis K21.9 Active 980389195 ALLERGIES No Information ENCOUNTERS Encounter Location Date Diagnosis [facility] [place] [address] [facility] [id number] [address] [place] [address] Dec, [facility] [place] [address] [facility] [id number] [address] [place] [phone] Oct, OUTREACH [facility] [address] [place] [id number] [place] [phone] Oct, Oral health maintenance stat us requiring routine preventive dental care K08.9 [facility] [place] [address] [facility] [id number] [address] [place] [phone] August, Intermittent explosive disor salvatore in adult F63.81 ; Bipolar disorder, unspecified F31.9 and Mild intellectual disability F70 [facility] [address] [facility] [id number] [address] [place] [address] [phone] August, Dental caries K02.9 [facility] [place] [address] [facility] [id number] [address] [place] [phone] Jul, Onychomycosis B35.1 ; Other diabetic neurological complication associated with type 2 diabetes mellitus E11.49 and Tinea pedis of both feet B35.3 [facility] [address] [facility] [id number] [address] [place] [address] [id number] Jul, Caries K02.9 [facility] [place] [address] [facility] [id number] [address] [place] [phone] Jul, Type 2 diabetes mellitus wit h complication E11.8 ; Tobacco abuse Z72.0 and Bipolar disorder, unspecified F31.9 [facility] [place] [address] [facility] [id number] [address] [place] [phone] Jun, [facility] [address] [facility] [id number] [address] [place] [address] [id number] Jun, Dental examination Z01.20 an d Oral health maintenance status requiring routine preventive dental care K08.9 [facility] [place] [address] [facility] [id number] [address] [place] [phone] May, Bilateral impacted cerumen H 61.23 [facility] [place] [address] [facility] [id number] [address] [place] [phone] Apr, Bipolar disorder, unspecifie d F31.9 ; Intermittent explosive disorder in adult F63.81 ; Type 2 diabetes mellitus with complication E11.8 ; Tobacco abuse Z72.0 and Colon cancer screening Z12.11 [facility] [place] [address] [address] Apr, Onychomycosis B35.1 and Othe r diabetic neurological complication associated with type 2 diabetes mellitus E11.49 [facility] [place] [address] [place] [id number] [place] [phone] Apr, Intermittent explosive disor salvatore in adult F63.81 ; Bipolar disorder, unspecified F31.9 and Mild intellectual disability F70 [place] [address] [phone] Mar, Diabetes E11.9 [facility] [address] [address] Jan, Encounter for immunization Z 23 [place] [address] [address] Jan, Tinea pedis of both feet B35 .3 ; Other diabetic neurological complication associated with type 2 diabetes mellitus E11.49 and Onychomycosis B35.1 [place] [address] [place] [id number] [place] [phone] Nov, Type 2 diabetes mellitus wit h complication E11.8 [place] [address] [place] [id number] [place] [phone] Nov, [facility] [place] [address] [address] Oct, Intermittent explosive disor salvatore in adult F63.81 ; Bipolar disorder, unspecified F31.9 and Mild intellectual disability F70 [facility] [place] [address] [id number] [place] [phone] Oct, [facility] [address] [id number] [address] [place] [address] [id number] Oct, Dental examination Z01.20 [facility] [place] [address] [id number] [address] [place] [phone] Oct, Onychomycosis B35.1 and Othe r diabetic neurological complication associated with type 2 diabetes mellitus E11.49 [place] [address] [place] [id number] [place] [phone] Sep, Type 2 diabetes mellitus wit h complication E11.8 and Colon cancer screening Z12.11 [place] [address] [place] [id number] [place] [phone] Sep, Type 2 diabetes mellitus wit h complication E11.8 ; Colon cancer screening Z12.11 and Neuropathy G62.9 [place] [address] [place] [id number] [place] [phone] August, Diabetes E11.9 [facility] [address] [place] [id number] [address] [place] [address] [id number] Jul, Dental examination Z01.20 [place] [address] [place] [id number] [place] [phone] May, Mild intellectual disability F70 [place] [address] [address] May, Mild intellectual disability F70 ; High risk medication use Z79.899 ; Intermittent explosive disorder in adult F63.81 and Bipolar disorder, unspecified F31.9 [place] [address] [place] [id number] [place] [phone] May, [place] [address] [place] [id number] [place] [phone] May, [place] [address] [place] [id number] [place] [phone] Apr, Type 2 diabetes mellitus wit h complication E11.8 ; Mild intellectual disability F70 ; Gastroesophageal reflux disease without esophagitis K21.9 ; Reactive airway disease, mild intermittent, uncomplicated J45.20 and Tobacco abuse Z72.0 [place] [address] [place] [id number] [place] [phone] Apr, High risk medication use Z79 .899 ; Mild intellectual disability F70 ; Intermittent explosive disorder in adult F63.81 and Bipolar disorder, unspecified F31.9 [facility] [address] [id number] [address] [place] [address] [id number] Mar, Encounter for dental exam an d cleaning w/o abnormal findings Z01.20 [facility] [address] [id number] [address] [place] [address] [phone] Mar, Dental examination Z01.20 [facility] [place] [address] [id number] [address] [place] [phone] 12 Jan, 2017 [facility] [place] [address] [id number] [address] [place] [phone] Jan, [facility] [place] [address] [id number] [address] [place] [phone] Jan, Mild intellectual disability F70 ; Bipolar disorder, unspecified F31.9 and Intermittent explosive disorder in adult F63.81 [facility] [place] [address] [id number] [address] [place] [phone] Jan, Diabetes E11.9 [facility] [address] [id number] [address] [place] [address] [phone] Dec, Encounter for dental examina tion and cleaning without abnormal findings Z01.20 [facility] [place] [address] [id number] [address] [place] [phone] Dec, Bipolar disorder, unspecifie d F31.9 ; Intermittent explosive disorder in adult F63.81 and Mild intellectual disability F70 [facility] [place] [address] [id number] [address] [place] [phone] Nov, Diabetes E11.9 [facility] [place] [address] [id number] [address] [place] [phone] Nov, [facility] [place] [address] [id number] [address] [place] [phone] Nov, Diabetes E11.9 and Colon can cer screening Z12.[address] [id number] [id number] 21 Sep, 2016 Dental examination Z01.20 [facility] [address] [id number] [address] [place] [address] [id number] 21 Sep, 2016 Encounter for dental examina tion and cleaning without abnormal findings Z01.20 [facility] [place] [address] [id number] [address] [place] [phone] 13 Sep, 2016 Bipolar disorder, unspecifie d F31.9 [facility] [place] [address] [id number] [address] [place] [phone] 12 Sep, 2016 Bipolar disorder, unspecifie d F31.9 [facility] [place] [address] [facility] [id number] [address] [place] [phone] Jul, [facility] [place] [address] [facility] [id number] [address] [place] [id number] Jul, Type 2 diabetes mellitus wit h complication E11.8 [facility] [address] [id number] [address] [place] [address] [id number] 15 Jun, 2016 Encounter for dental examina tion and cleaning without abnormal findings Z01.[address] [id number] [id number] 15 Jun, 2016 Dental examination Z01.20 [facility] [place] [address] [facility] [id number] [address] [place] [phone] 18 Apr, 2016 Sports physical Z02.5 [facility] [place] [address] [id number] [address] [place] [phone] 14 Mar, 2016 Bipolar disorder, in partial remission, most recent episode manic F31.73 and Intermittent explosive disorder in adult F63.81 [facility] [place] [address] [id number] [address] [place] [phone] 08 Mar, 2016 [facility] [place] [address] [facility] [id number] [address] [place] [phone] Mar, Diabetes E11.9 [facility] [address] [id number] [address] [place] [address] [id number] Feb, Encounter for dental examina tion and cleaning without abnormal findings Z01.20 [facility] [place] [address] [id number] [address] [place] [phone] 22 Dec, 2015 Nocturnal hypoxemia G47.34 a nd Encounter for immunization Z23 [facility] [place] [address] [facility] [id number] [address] [place] [phone] 15 Dec, 2015 [facility] [place] [address] [facility] [id number] [address] [place] [phone] Dec, [facility] [place] [address] [facility] [id number] [address] [place] [phone] Dec, Bipolar disorder, unspecifie d F31.9 [facility] [address] [id number] [address] [place] [address] [id number] Oct, Encounter for dental examina tion and cleaning without abnormal findings Z01.20 [facility] [id number] [place] [address] [id number] Oct, Dental examination Z01.20 [facility] [place] [address] [facility] [id number] [address] [place] [phone] Oct, Diabetes E11.9 [facility] [place] [address] [facility] [id number] [address] [place] [phone] Oct, Diabetes E11.9 ; Reactive ai rway disease, mild intermittent, uncomplicated J45.20 and Tobacco abuse Z72.0 [facility] [place] [address] [facility] [id number] [address] [place] [phone] Sep, Bipolar disorder, unspecifie d F31.9 and Depression F32.9 [facility] [place] [address] [facility] [id number] [address] [place] [phone] Sep, [facility] [place] [address] [facility] [id number] [address] [place] [phone] August, Tinea pedis of both feet B35 .3 and DM w/o complication type II, uncontrolled E11.65 [place] [address] [id number] Jul, [place] [address] [address] Jul, [place] [address] [id number] Jul, Obstructive sleep apnea G47. 33 [place] [address] [phone] Jun, Diabetes E11.9 [place] [address] [address] Jun, [place] [address] [address] Jun, [place] [address] [phone] Jun, Bipolar disorder, unspecifie d F31.9 and Mental retardation F79 [place] [address] [id number] Apr, [place] [address] [address] Feb, Diabetes E11.9 ; Encounter f or immunization Z23 ; Cough R05 and Nicotine abuse Z72.0 [place] [address] [id number] Jan, Bipolar disorder, unspecifie d F31.9 and Diabetes mellitus without mention of complication, type II or unspecified type, uncontrolled 250.02 [place] [address] [id number] Jan, [place] [address] [id number] Dec, Reactive airway disease 493. 90 and Enuresis 788.30 [place] [address] [id number] [address] [place] [phone] Dec, [facility] [place] [address] [facility] [id number] [address] [place] [phone] Nov, [facility] [place] [address] [facility] [id number] [address] [place] [phone] Nov, [facility] [place] [address] [facility] [id number] [address] [place] [phone] Nov, Annual physical exam V70.0 ; Urinary incontinence 788.30 ; Diabetes 250.00 and Hypertension 401.9 [facility] [place] [address] [id number] [address] [place] [phone] Oct, Diabetes mellitus without me ntion of complication, type II or unspecified type, uncontrolled 250.02 [facility] [place] [address] [facility] [id number] [address] [place] [phone] Oct, Diabetes mellitus without me ntion of complication, type II or unspecified type, uncontrolled 250.02 [facility] [place] [address] [facility] [id number] [address] [place] [phone] Oct, Diabetes mellitus without me ntion of complication, type II or unspecified type, uncontrolled 250.02 [facility] [place] [address] [facility] [id number] [address] [place] [phone] Oct, [facility] [place] [address] [facility] [id number] [address] [place] [phone] Oct, [facility] [place] [address] [facility] [id number] [address] [place] [phone] Oct, Bipolar disorder, unspecifie d 296.80 [facility] [id number] [place] [address] [id number] Sep, Dental examination V72.2 [facility] [place] [address] [facility] [id number] [address] [place] [phone] August, [facility] [id number] [place] [address] [id number] August, Dental examination V72.2 [facility] [address] [id number] [address] [place] [address], [place] [address] August, [facility] [address] [id number] [address] [place] [id number] 14 Jul, 2014 [facility] [address] [id number] [address] [place] [phone] Jul, [facility] [address] [id number] [address] [place] [phone] 17 Jun, 2014 [facility] [address] [id number] [address] [place] [phone] Jun, [facility] [address] [id number] [address] [place] [phone] Jun, [facility] [address] [id number] [address] [place] [phone] Jun, [facility] [address] [id number] [address] [place] [phone] May, [facility] [address] [id number] [address] [place] [phone] May, 2014 [facility] [address] [id number] [address] [place] [phone] 16 May, 2014 [facility] [address] [id number] [address] [place] [id number] 16 May, 2014 [facility] [address] [id number] [address] [place] [phone] May, 2014 [facility] [address] [id number] [address] [place] [phone] May, 2014 [facility] [address] [id number] [address] [place] [phone] 16 May, 2014 [facility] [address] [id number] [address] [place] [phone] 16 May, 2014 [facility] [address] [id number] [address] [place] [address], [place] [address] May, 2014 [facility] [address] [id number] [address] [place] [address], [place] [address] May, 2014 [facility] [address] [id number] [address] [place] [address], [place] [address] May, 2014 [facility] [address] [id number] [address] [place] [address], [place] [address] May, 2014 [facility] [address] [id number] [address] [place] [address], [place] [address] May, [facility] [address] [id number] [address] [place] [address], [place] [address] May, 2014 [facility] [address] [id number] [address] [place] [address], [place] [address] May, [facility] [address] [id number] [address] [place] [address], [place] [address] Apr, [facility] [address] [id number] [address] [place] [address], [place] [address] Apr, [facility] [address] [id number] [address] [place] [address], [place] [address] Apr, [facility] [address] [id number] [address] [place] [address], [place] [address] Apr, [facility] [address] [id number] [address] [place] [address], [place] [address] Apr, [facility] [address] [id number] [address] [place] [address], [place] [address] Apr, [facility] [address] [id number] [address] [place] [address], [place] [address] Apr, [facility] [address] [id number] [address] [place] [address], [place] [address] Apr, [facility] [address] [id number] [address] [place] [address], [place] [address] Apr, [facility] [address] [id number] [address] [place] [address], [place] [address] Apr, [facility] [address] [id number] [address] [place] [address], [place] [address] Apr, [facility] [address] [id number] [address] [place] [address], [place] [address] Apr, [facility] [address] [id number] [address] [place] [address], [place] [address] Mar, [facility] [address] [id number] [address] [place] [address], [place] [address] Mar, [facility] [address] [id number] [address] [place] [address], [place] [address] Mar, [facility] [address] [id number] [address] [place] [address], [place] [address] Mar, [facility] [address] [id number] [address] [place] [address], [place] [address] Mar, [facility] [address] [id number] [address] [place] [address], [place] [address] Mar, [facility] [address] [address] [id number] [address] [place] [address], [place] [address] 13 Feb, 2014 [facility] [address] [id number] [address] [place] [address], [place] [address] Feb, [facility] [address] [id number] [address] [place] [address], [place] [address] Feb, [facility] [address] [id number] [address] [place] [address], [place] [address] 13 Feb, 2014 [facility] [address] [id number] [address] [place] [address], [place] [address] 14 Jan, 2014 [facility] [address] [id number] [address] [place] [address], [place] [address] 14 Jan, 2014 [facility] [address] [id number] [address] [place] [address], [place] [address] 14 Jan, 2014 [facility] [address] [id number] [address] [place] [address], [place] [address] 14 Jan, 2014 [facility] [address] [id number] [address] [place] [address], [place] [address] Dec, [facility] [address] [id number] [address] [place] [address], [place] [address] Dec, [facility] [address] [id number] [address] [place] [address], [place] [address] Dec, [facility] [address] [id number] [address] [place] [address], [place] [address] Dec, [facility] [address] [id number] [address] [place] [address], [place] [address] Nov, [facility] [address] [id number] [address] [place] [address], [place] [address] Nov, [facility] [address] [id number] [address] [place] [address], [place] [address] Nov, [facility] [address] [id number] [address] [place] [address], [place] [address] Nov, [facility] [address] [id number] [address] [place] [address], [place] [address] Nov, [facility] [address] [id number] [address] [place] [address], [place] [address] Nov, [facility] [address] [id number] [address] [place] [address], [place] [address] Nov, [facility] [address] [id number] [address] [place] [address], [place] [address] Oct, [facility] [address] [id number] [address] [place] [address], [place] [address] Oct, [facility] [address] [id number] [address] [place] [address], [place] [address] Oct, [facility] [address] [id number] [address] [place] [address], [place] [address] Oct, [facility] [address] [id number] [address] [place] [address], [place] [address] Oct, [facility] [address] [id number] [address] [place] [address], [place] [address] Oct, [facility] [address] [id number] [address] [place] [address], [place] [address] Oct, [facility] [address] [id number] [address] [place] [address], [place] [address] Sep, [facility] [address] [id number] [address] [place] [address], [place] [address] Sep, [facility] [address] [id number] [address] [place] [address], [place] [address] Sep, [facility] [address] [id number] [address] [place] [address], [place] [address] Sep, [facility] [address] [id number] [address] [place] [address], [place] [address] Sep, [facility] [address] [id number] [address] [place] [address], [place] [address] Jul, [facility] [address] [id number] [address] [place] [address], [place] [address] Jul, [facility] [address] [id number] [address] [place] [address], [place] [address] Jul, [facility] [address] [id number] [address] [place] [address], [place] [address] Jul, [facility] [address] [id number] [address] [place] [address], [place] [address] Jul, [facility] [address] [id number] [address] [place] [address], [place] [address] Jul, [facility] [address] [id number] [address] [address] Jul, [facility] [address] [id number] [address] [address] Jul, [facility] [address] [id number] [address] [address] Jul, [facility] [address] [id number] [address] [place] [address], [place] [address] Jul, [facility] [address] [id number] [address] [place] [address], [place] [address] Jul, [facility] [address] [id number] [address] [place] [address], [place] [address] Jul, [facility] [address] [id number] [address] [place] [address], [place] [address] Jun, [facility] [address] [id number] [address] [place] [address], [place] [address] Jun, [facility] [address] [id number] [address] [place] [address], [place] [address] Jun, [facility] [address] [id number] [address] [place] [address], [place] [address] Jun, [facility] [address] [id number] [address] [place] [address], [place] [address] Jun, [facility] [address] [id number] [address] [place] [address], [place] [address] Jun, [facility] [address] [id number] [address] [place] [address], [place] [address] Jun, [facility] [address] [id number] [address] [place] [address], [place] [address] Jun, [facility] [address] [id number] [address] [place] [address], [place] [address] May, [facility] [address] [id number] [address] [place] [address], [place] [address] May, [facility] [address] [id number] [address] [place] [address], [place] [address] May, [facility] [address] [id number] [address] [place] [address], [place] [address] May, [facility] [address] [id number] [address] [place] [address], [place] [address] May, [facility] [address] [id number] [address] [place] [address], [place] [address] May, [facility] [address] [id number] [address] [place] [address], [place] [address] May, [facility] [address] [id number] [address] [place] [address], [place] [address] May, [facility] [address] [id number] [address] [place] [address], [place] [address] Apr, [facility] [address] [id number] [address] [place] [address], [place] [address] Apr, [facility] [address] [id number] [address] [place] [address], [place] [address] Apr, [facility] [address] [id number] [address] [place] [address], [place] [address] Apr, [facility] [address] [id number] [address] [place] [address], [place] [address] Mar, [facility] [address] [id number] [address] [place] [address], [place] [address] Mar, [facility] [address] [id number] [address] [place] [address], [place] [address] Mar, [facility] [address] [id number] [address] [place] [address], [place] [address] Feb, [facility] [address] [id number] [address] [place] [address], [place] [address] Feb, [facility] [address] [id number] [address] [place] [address], [place] [address] Feb, [facility] [address] [id number] [address] [place] [address], [place] [address] Feb, [facility] [address] [id number] [address] [place] [address], [place] [address] Feb, [facility] [address] [id number] [address] [place] [address], [place] [address] Feb, [facility] [address] [id number] [address] [place] [address], [place] [address] Jan, [facility] [address] [id number] [address] [place] [address], [place] [address] Jan, [facility] [address] [id number] [address] [place] [address], [place] [address] Jan, [facility] [address] [id number] [address] [place] [address], [place] [address] Jan, [facility] [address] [id number] [address] [place] [address], [place] [address] Jan, [facility] [address] [id number] [address] [place] [address], [place] [address] Jan, [facility] [address] [id number] [address] [place] [address], [place] [address] Jan, [facility] [address] [id number] [address] [place] [address], [place] [address] 25 Dec, 2012 [facility] [address] [id number] [address] [place] [address], [place] [address] 16 Dec, 2012 [facility] [address] [id number] [address] [place] [address], [place] [address] 10 Dec, 2012 [facility] [address] [id number] [address] [place] [address], [place] [address] 05 Dec, 2012 [facility] [address] [id number] [address] [place] [address], [place] [address] Nov, [facility] [address] [id number] [address] [place] [address], [place] [address] Nov, [facility] [address] [id number] [address] [place] [address], [place] [address] Nov, [facility] [address] [id number] [address] [place] [address], [place] [address] Nov, [facility] [address] [id number] [address] [place] [address], [place] [address] Nov, [facility] [address] [id number] [address] [place] [address], [place] [address] Nov, [facility] [address] [id number] [address] [place] [address], [place] [address] Nov, [facility] [address] [id number] [address] [place] [address], [place] [address] Oct, [facility] [address] [id number] [address] [place] [address], [place] [address] Oct, [facility] [address] [id number] [address] [place] [address], [place] [address] Oct, [facility] [address] [id number] [address] [place] [address], [place] [address] Oct, [facility] [address] [id number] [address] [place] [address], [place] [address] Oct, [facility] [address] [id number] [address] [place] [address], [place] [address] Oct, [facility] [address] [id number] [address] [place] [address], [place] [address] Oct, [facility] [address] [id number] [address] [place] [address], [place] [address] Oct, [facility] [address] [id number] [address] [place] [address], [place] [address] Sep, Suleiman PEREZ [address] [id number] [place] [id number] 30 Aug, 2012 [facility] [address] [id number] [address] [place] [address], [place] [address] August, [facility] [address] [id number] [address] [address] Jul, [facility] [address] [id number] [address] [place] [address], [place] [address] Jul, [facility] [address] [id number] [address] [place] [address], [place] [address] Jul, [facility] [address] [id number] [address] [place] [address], [place] [address] Jul, [facility] [address] [id number] [address] [place] [address], [place] [address] Jul, [facility] [address] [id number] [address] [place] [address], [place] [address] Jul, [facility] [address] [id number] [address] [place] [address], [place] [address] 16 Jul, 2012 [facility] [address] [id number] [address] [place] [address], [place] [address] Jun, [facility] [address] [id number] [address] [place] [address], [place] [address] Jun, [facility] [address] [id number] [address] [place] [address], [place] [address] Jun, [facility] [address] [id number] [address] [place] [address], [place] [address] Jun, [facility] [address] [id number] [address] [place] [address], [place] [address] Jun, [facility] [address] [id number] [address] [place] [address], [place] [address] May, [facility] [address] [id number] [address] [place] [address], [place] [address] 18 May, 2012 [facility] [address] [id number] [address] [place] [address], [place] [address] 04 May, 2012 [facility] [address] [id number] [address] [place] [address], [place] [address] 15 Apr, 2012 [facility] [address] [id number] [address] [place] [address], [place] [address] 14 Apr, 2012 [facility] [address] [id number] [address] [place] [address], [place] [address] 07 Apr, 2012 [facility] [address] [id number] [address] [place] [address], [place] [address] Mar, [facility] [address] [id number] [address] [place] [address], [place] [address] 31 Mar, 2012 [facility] [address] [id number] [address] [place] [address], [place] [address] Mar, [facility] [address] [id number] [address] [place] [address], [place] [address] Mar, [facility] [address] [id number] [address] [place] [address], [place] [address] Mar, [facility] [address] [id number] [address] [place] [address] Mar, [facility] [address] [id number] [address] [place] [address] Feb, [facility] [address] [id number] [address] [place] [address] Feb, [facility] [address] [id number] [address] [place] [address], [place] [address] Jan, [facility] [address] [id number] [address] [place] [address], [place] [address] Jan, [facility] [address] [id number] [address] [place] [address], [place] [address] 25 Dec, 2011 [facility] [address] [id number] [address] [place] [address] Nov, [facility] [address] [id number] [address] [place] [address], [place] [address] Nov, [facility] [address] [id number] [address] [place] [address], [place] [address] Nov, [facility] [address] [id number] [address] [place] [address], [place] [address] Nov, [facility] [address] [id number] [address] [place] [address], [place] [address] Oct, [facility] [address] [id number] [address] [place] [address], [place] [address] Oct, [facility] [address] [id number] [address] [place] [address], [place] [address] Oct, [facility] [address] [id number] [address] [place] [address], [place] [address] Sep, [facility] [address] [id number] [address] [place] [address], [place] [address] Sep, [facility] [address] [id number] [address] [place] [address], [place] [address] Sep, [facility] [address] [id number] [address] [place] [address], [place] [address] August, [facility] [address] [id number] [address] [place] [address], [place] [address] August, [facility] [address] [id number] [address] [place] [address], [place] [address] Jul, [facility] [address] [id number] [address] [place] [address], [place] [address] 24 Jul, 2011 [facility] [address] [id number] [address] [place] [address], [place] [address] 17 Jul, 2011 [facility] [address] [id number] [address] [place] [address], [place] [address] Jul, [facility] [address] [id number] [address] [place] [address], [place] [address] Jun, [facility] [address] [id number] [address] [place] [address], [place] [address] 06 May, 2011 [facility] [address] [id number] [address] [place] [address], [place] [address] Apr, [facility] [address] [id number] [address] [place] [address], [place] [address] Apr, [facility] [address] [id number] [address] [place] [address], [place] [address] Apr, [facility] [address] [id number] [address] [place] [address], [place] [address] Apr, [facility] [address] [id number] [address] [place] [address], [place] [address] Apr, [facility] [address] [id number] [address] [place] [address], [place] [address] Apr, [facility] [address] [id number] [address] [place] [address], [place] [address] Mar, [facility] [address] [id number] [address] [place] [address], [place] [address] Mar, [facility] [address] [id number] [address] [place] [address], [place] [address] Feb, [facility] [address] [id number] [address] [place] [address], [place] [address] Feb, [facility] [address] [id number] [address] [place] [address], [place] [id number] 17 Feb, 2011 [facility] [address] [id number] [address] [place] [address], [place] [id number] 09 Feb, 2011 [facility] [address] [id number] [address] [place] [address], [place] [id number] 20 Jan, 2011 [facility] [address] [id number] [address] [place] [id number] 18 Jan, 2011 [facility] [address] [id number] [address] [place] [address], [place] [id number] 18 Jan, 2011 [facility] [address] [id number] [address] [place] [address], [place] [id number] 18 Jan, 2011 [facility] [address] [id number] [address] [place] [address], [place] [address] 17 Nov, 2010 [facility] [address] [id number] [address] [place] [address], [place] [address] Mar, [facility] [address] [id number] [address] [place] [address], [place] [address] Mar, [facility] [address] [id number] [address] [place] [id number] 30 Feb, 2010 [facility] [address] [id number] [address] [place] [address], [place] [address] Feb, [facility] [address] [id number] [address] [place] [phone] Jan, [facility] [address] [id number] [address] [place] [address], [place] [address] Jan, [facility] [address] [id number] [address] [place] [phone] Sep, [facility] [address] [id number] [address] [place] [id number] 16 May, 2009 [facility] [address] [id number] [address] [place] [phone] Apr, [facility] [address] [id number] [address] [place] [address], [place] [id number] Mar, [facility] [address] [id number] [address] [place] [id number] 15 Feb, 2009 [facility] [address] [id number] [address] [place] [phone] Feb, [facility] [address] [id number] [address] [place] [phone] 10 Feb, 2009 [facility] [place] [address] [facility] [id number] [address] [place] [phone] Jan, [facility] [place] [address] [facility] [id number] [address] [place] [phone] Jan, [facility] [place] [address] [facility] [id number] [address] [place] [phone] Jan, [facility] [place] [address] [facility] [id number] [address] [place] [phone] Jan, [facility] [place] [address] [facility] [id number] [address] [place] [phone] August, IMMUNIZATIONS No Known Immunizations SOCIAL HISTORY [...] age 6 Hospitalization History surgery Hospitalization History [facility], in[facility] tient treatment few times for BH
--- OUTSIDE RECORDS SUMMARY | 2019-09-29 10:48 | XMS REPORT ---
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 Active 17566830 Problem Open-angle glaucoma of both eyes, unspecified glaucoma stage, unspecified open-angle glaucoma type H40.10X0 Acti ve 44940422 Problem Adjustment disorder, unspecified type F43.20 Active 01525601 Problem Obstructive sleep apnea G47.33 Active 14566749 Problem Hypertensive retinopathy of both eyes H35.033 Active 4173079 Problem Type 2 diabetes mellitus with complication E11.8 Active 08214619 Problem Essential hypertension I10 Active 26622713 Problem Diabetes E11.9 Active 05158650 Problem Bipolar disorder, in partial remission, most rec ent episode manic F31.73 Active 07248032 Problem Intermittent explosive disorder in adult F63.81 Active 07220820 Problem Other diabetic neurological complication associated with type 2 diabetes mellitus E11.49 Active 932568529 Problem Depression F32.9 Active 08394740 Problem Neuropathy G62.9 Active 953630443 Problem Intermittent explosive disorder F63.81 Active 90855433 Problem Bipolar disorder, unspecified F31.9 Active 79700954 Problem Mild intellectual disability F70 A ctive 89217906 Problem Reactive airway disease, mild intermittent, uncomplicated J45.20 Active 029454660 Problem Gastroesophageal reflux disease without esophagitis K21.9 Active 150119302 ALLERGIES No Information ENCOUNTERS Encounter Location Date Diagnosis [facility] [address] [facility] [id number] [address] [place] [address] Dec, [facility] [address] [facility] [id number] [address] [place] [address] Nov, [facility] [address] [id number] [address] [place] [address] Oct, OUTREACH [facility] [id number] [place] [address] Oct, Oral health maintenance stat us requiring routine preventive dental care K08.9 [facility] [address] [id number] [address] [place] [address] August, Intermittent explosive disor salvatore in adult F63.81 ; Bipolar disorder, unspecified F31.9 and Mild intellectual disability F70 [facility] [address] [id number] [address] [place] [address] [phone] August, Dental caries K02.9 [facility] [address] [facility] [id number] [address] [place] [address] Jul, Onychomycosis B35.1 ; Other diabetic neurological complication associated with type 2 diabetes mellitus E11.49 and Tinea pedis of both feet B35.3 [facility] [address] [id number] [address] [place] [address] [id number] Jul, Caries K02.9 [facility] [address] [facility] [id number] [address] [place] [address] Jul, Type 2 diabetes mellitus wit h complication E11.8 ; Tobacco abuse Z72.0 and Bipolar disorder, unspecified F31.9 [facility] [address] [id number] [address] [place] [address] Jun, [facility] [address] [id number] [address] [place] [address] [id number] Jun, Dental examination Z01.20 an d Oral health maintenance status requiring routine preventive dental care K08.9 [facility] [address] [id number] [address] [place] [address] May, Bilateral impacted cerumen H 61.23 [facility] [address] [place] [id number] [address] [place] [address] Apr, Bipolar disorder, unspecifie d F31.9 ; Intermittent explosive disorder in adult F63.81 ; Type 2 diabetes mellitus with complication E11.8 ; Tobacco abuse Z72.0 and Colon cancer screening Z12.11 [facility] [address] [facility] [id number] [address] [place] [address] Apr, Onychomycosis B35.1 and Othe r diabetic neurological complication associated with type 2 diabetes mellitus E11.49 [facility] [address] [facility] [id number] [address] [place] [address] Apr, Intermittent explosive disor salvatore in adult F63.81 ; Bipolar disorder, unspecified F31.9 and Mild intellectual disability F70 [facility] [address] [place] [id number] [address] [place] [address] Mar, Diabetes E11.9 [facility] [address] [place] [id number] [address] [place] [address] Jan, Encounter for immunization Z 23 [facility] [address] [place] [id number] [address] [place] [address] Jan, Tinea pedis of both feet B35 .3 ; Other diabetic neurological complication associated with type 2 diabetes mellitus E11.49 and Onychomycosis B35.1 [facility] [id number] [place] [address] Nov, Type 2 diabetes mellitus wit h complication E11.8 [facility] [address] [place] [id number] [address] [place] [address] Nov, [facility] [address] [facility] [id number] [address] [place] [address] Oct, Intermittent explosive disor salvatore in adult F63.81 ; Bipolar disorder, unspecified F31.9 and Mild intellectual disability F70 [facility] [address] [place] [id number] [address] [place] [address] Oct, [facility] [address] [facility] [id number] [address] [place] [address] [phone] 11 Oct, 2017 Dental examination Z01.20 [facility] [address] [facility] [id number] [address] [place] [address] 06 Oct, 2017 Onychomycosis B35.1 and Othe r diabetic neurological complication associated with type 2 diabetes mellitus E11.49 [facility] [address] [facility] [id number] [address] [place] [address] Sep, Type 2 diabetes mellitus wit h complication E11.8 and Colon cancer screening Z12.11 [facility] [address] [facility] [id number] [address] [place] [address] Sep, Type 2 diabetes mellitus wit h complication E11.8 ; Colon cancer screening Z12.11 and Neuropathy G62.9 [facility] [address] [facility] [id number] [address] [place] [address] August, Diabetes E11.9 [facility] [address] [facility] [id number] [address] [place] [address] [phone] Jul, Dental examination Z01.20 [facility] [address] [facility] [id number] [address] [place] [address] 27 May, 2017 Mild intellectual disability F70 [facility] [address] [facility] [id number] [address] [place] [address] May, Mild intellectual disability F70 ; High risk medication use Z79.899 ; Intermittent explosive disorder in adult F63.81 and Bipolar disorder, unspecified F31.9 [facility] [address] [facility] [id number] [address] [place] [address] May, [facility] [address] [facility] [id number] [address] [place] [address] May, [facility] [address] [facility] [id number] [address] [place] [address] Apr, Type 2 diabetes mellitus wit h complication E11.8 ; Mild intellectual disability F70 ; Gastroesophageal reflux disease without esophagitis K21.9 ; Reactive airway disease, mild intermittent, uncomplicated J45.20 and Tobacco abuse Z72.0 [facility] [address] [id number] [address] [place] [address] Apr, High risk medication use Z79 .899 ; Mild intellectual disability F70 ; Intermittent explosive disorder in adult F63.81 and Bipolar disorder, unspecified F31.9 [facility] [address] [id number] [address] [place] [address] [id number] Mar, Dental examination Z01.20 [facility] [address] [id number] [address] [place] [phone] Mar, Encounter for dental exam an d cleaning w/o abnormal findings Z01.20 [facility] [address] [id number] [address] [place] [address] 12 Jan, 2017 [facility] [address] [id number] [address] [place] [address] Jan, [facility] [address] [id number] [address] [place] [address] Jan, Mild intellectual disability F70 ; Bipolar disorder, unspecified F31.9 and Intermittent explosive disorder in adult F63.81 [facility] [address] [id number] [address] [place] [address] 02 Jan, 2017 Diabetes E11.9 [facility] [address] [id number] [address] [place] [address] [id number] Dec, Encounter for dental examina tion and cleaning without abnormal findings Z01.20 [facility] [address] [id number] [address] [place] [address] Dec, Bipolar disorder, unspecifie d F31.9 ; Intermittent explosive disorder in adult F63.81 and Mild intellectual disability F70 [facility] [address] [id number] [address] [place] [address] Nov, Diabetes E11.9 [facility] [address] [id number] [address] [place] [address] Nov, [facility] [address] [facility] [id number] [address] [place] [address] 14 Nov, 2016 Diabetes E11.9 and Colon can cer screening Z12.[address] [id number] [id number] 21 Sep, 2016 Dental examination Z01.20 [facility] [address] [id number] [address] [place] [address] [id number] 21 Sep, 2016 Encounter for dental examina tion and cleaning without abnormal findings Z01.20 [facility] [address] [facility] [id number] [address] [place] [address] 13 Sep, 2016 Bipolar disorder, unspecifie d F31.9 [facility] [address] [facility] [id number] [address] [place] [address] 12 Sep, 2016 Bipolar disorder, unspecifie d F31.9 [facility] [address] [facility] [id number] [address] [place] [address] 26 Jul, 2016 [facility] [address] [facility] [id number] [address] [place] [address] 13 Jul, 2016 Type 2 diabetes mellitus wit h complication E11.[address] [id number] [id number] 15 Jun, 2016 Dental examination Z01.20 [facility] [address] [id number] [address] [place] [address] [id number] 15 Jun, 2016 Encounter for dental examina tion and cleaning without abnormal findings Z01.20 [facility] [address] [facility] [id number] [address] [place] [address] 18 Apr, 2016 Sports physical Z02.5 [facility] [address] [facility] [id number] [address] [place] [address] 14 Mar, 2016 Bipolar disorder, in partial remission, most recent episode manic F31.73 and Intermittent explosive disorder in adult F63.81 [facility] [address] [facility] [id number] [address] [place] [address] Mar, [facility] [address] [facility] [id number] [address] [place] [address] Mar, Diabetes E11.9 [facility] [address] [place] [id number] [place] [address] [id number] Feb, Encounter for dental examina tion and cleaning without abnormal findings Z01.20 [facility] [address] [facility] [id number] [address] [place] [address] 22 Dec, 2015 Nocturnal hypoxemia G47.34 a nd Encounter for immunization Z23 [facility] [address] [facility] [id number] [address] [place] [address] 15 Dec, 2015 [facility] [address] [facility] [id number] [address] [place] [address] Dec, [place] [address] [facility] [id number] [place] [address] Dec, Bipolar disorder, unspecifie d F31.9 [facility] [address] [place] [id number] [address] [place] [address] [id number] Oct, Encounter for dental examina tion and cleaning without abnormal findings Z01.20 [place] [id number] [facility] [id number] [place] [address] [id number] Oct, Dental examination Z01.20 [facility] [address] [place] [id number] [address] [place] [address] Oct, Diabetes E11.9 [facility] [address] [place] [id number] [address] [place] [address] Oct, Diabetes E11.9 ; Reactive ai rway disease, mild intermittent, uncomplicated J45.20 and Tobacco abuse Z72.0 [facility] [address] [facility] [id number] [address] [place] [address] Sep, Bipolar disorder, unspecifie d F31.9 and Depression F32.9 [place] [address] [facility] [id number] [address] [place] [address] Sep, [facility] [address] [address] August, Tinea pedis of both feet B35 .3 and DM w/o complication type II, uncontrolled E11.65 [place] [address] [place] [id number] [address] [place] [address] Jul, [place] [address] [address] Jul, [place] [address] [address] Jul, Obstructive sleep apnea G47. 33 [place] [address] [address] Jun, Diabetes E11.9 [place] [address] [address] Jun, [place] [address] [address] Jun, [place] [address] [address] Jun, Bipolar disorder, unspecifie d F31.9 and Mental retardation F79 [place] [address] [address] Apr, [place] [address] [address] Feb, Diabetes E11.9 ; Encounter f or immunization Z23 ; Cough R05 and Nicotine abuse Z72.0 [place] [address] [address] Jan, Bipolar disorder, unspecifie d F31.9 and Diabetes mellitus without mention of complication, type II or unspecified type, uncontrolled 250.02 [place] [address] [address] Jan, [place] [address] [address] Dec, Reactive airway disease 493. 90 and Enuresis 788.30 [facility] [address] [address] Dec, [facility] [address] [address] Nov, [facility] [address] [address] Nov, [facility] [address] [address] Nov, Annual physical exam V70.0 ; Urinary incontinence 788.30 ; Diabetes 250.00 and Hypertension 401.9 [place] [address] [address] Oct, Diabetes mellitus without me ntion of complication, type II or unspecified type, uncontrolled 250.02 [facility] [address] [place] [id number] [address] [place] [address] Oct, Diabetes mellitus without me ntion of complication, type II or unspecified type, uncontrolled 250.02 [facility] [address] [address] Oct, Diabetes mellitus without me ntion of complication, type II or unspecified type, uncontrolled 250.02 [place] [address] [place] [id number] [address] [place] [address] Oct, [facility] [address] [place] [id number] [address] [place] [address] Oct, [facility] [address] [address] Oct, Bipolar disorder, unspecifie d 296.80 [facility] [address] [id number] [address] [place] [address] [id number] Sep, Dental examination V72.2 [facility] [address] [place] [id number] [address] [place] [address] August, [facility] [address] [id number] [address] [place] [address] [id number] August, Dental examination V72.2 [facility] [address] [id number] [address] [place] [address] August, [facility] [address] [id number] [address] [place] [address] Jul, [facility] [address] [id number] [address] [place] [address] Jul, [facility] [address] [id number] [address] [place] [address] Jun, [facility] [address] [id number] [address] [place] [address] Jun, [facility] [address] [id number] [address] [place] [address] Jun, [facility] [address] [id number] [address] [place] [address] Jun, [facility] [address] [id number] [address] [place] [address] May, [facility] [address] [id number] [address] [place] [address] May, [facility] [address] [id number] [address] [place] [address] May, 2014 [facility] [address] [id number] [address] [place] [address] May, 2014 [facility] [address] [id number] [address] [place] [address] May, [facility] [address] [id number] [address] [place] [address] May, 2014 [facility] [address] [id number] [address] [place] [address] May, [facility] [address] [id number] [address] [place] [address], [place] [address] May, 2014 [facility] [address] [id number] [address] [place] [address], [place] [address] May, 2014 [facility] [address] [id number] [address] [place] [address], [place] [address] May, 2014 [facility] [address] [id number] [address] [place] [address], [place] [address] May, 2014 [facility] [address] [id number] [address] [place] [address], [place] [address] May, 2014 [facility] [address] [id number] [address] [place] [address], [place] [address] May, 2014 [facility] [address] [id number] [address] [place] [address], [place] [address] May, 2014 [facility] [address] [id number] [address] [place] [address], [place] [address] May, [facility] [address] [id number] [address] [place] [address], [place] [address] Apr, [facility] [address] [id number] [address] [place] [address], [place] [address] Apr, [facility] [address] [id number] [address] [place] [address], [place] [address] Apr, [facility] [address] [id number] [address] [place] [address], [place] [address] Apr, [facility] [address] [id number] [address] [place] [address], [place] [address] Apr, [facility] [address] [id number] [address] [place] [address], [place] [address] Apr, [facility] [address] [id number] [address] [place] [address], [place] [address] Apr, [facility] [address] [id number] [address] [place] [address], [place] [address] Apr, [facility] [address] [id number] [address] [place] [address], [place] [address] Apr, [facility] [address] [id number] [address] [place] [address], [place] [address] Apr, [facility] [address] [id number] [address] [place] [address], [place] [address] Apr, [facility] [address] [id number] [address] [place] [address], [place] [address] Apr, [facility] [address] [id number] [address] [place] [address], [place] [address] Mar, [facility] [address] [id number] [address] [place] [address], [place] [address] Mar, [facility] [address] [id number] [address] [place] [address], [place] [address] Mar, [facility] [address] [id number] [address] [place] [address], [place] [address] Mar, [facility] [address] [id number] [address] [place] [address], [place] [address] Mar, [facility] [address] [id number] [address] [place] [address], [place] [address] Mar, [facility] [address] [id number] [address] [place] [address], [place] [address] Feb, [facility] [address] [id number] [address] [place] [address], [place] [address] Feb, [facility] [address] [id number] [address] [place] [address], [place] [address] 13 Feb, 2014 [facility] [address] [id number] [address] [place] [address], [place] [address] 13 Feb, 2014 [facility] [address] [id number] [address] [place] [address], [place] [address] 14 Jan, 2014 [facility] [address] [id number] [address] [place] [address], [place] [address] 14 Jan, 2014 [facility] [address] [id number] [address] [place] [address], [place] [address] 14 Jan, 2014 [facility] [address] [id number] [address] [place] [address], [place] [address] 14 Jan, 2014 [facility] [address] [id number] [address] [place] [address], [place] [address] 22 Dec, 2013 [facility] [address] [id number] [address] [place] [address], [place] [address] 22 Dec, 2013 [facility] [address] [id number] [address] [place] [address], [place] [address] 15 Dec, 2013 [facility] [address] [id number] [address] [place] [address], [place] [address] 15 Dec, 2013 [facility] [address] [id number] [address] [place] [address], [place] [address] Nov, [facility] [address] [id number] [address] [place] [address], [place] [address] Nov, [facility] [address] [id number] [address] [place] [address], [place] [address] Nov, [facility] [address] [id number] [address] [place] [address], [place] [address] Nov, [facility] [address] [id number] [address] [place] [address], [place] [address] Nov, [facility] [address] [id number] [address] [place] [address], [place] [address] Nov, [facility] [address] [id number] [address] [place] [address], [place] [address] Nov, [facility] [address] [id number] [address] [place] [address], [place] [address] Oct, [facility] [address] [id number] [address] [place] [address], [place] [address] Oct, [facility] [address] [id number] [address] [place] [address], [place] [address] Oct, [facility] [address] [id number] [address] [place] [address], [place] [address] Oct, [facility] [address] [id number] [address] [place] [address], [place] [address] Oct, [facility] [address] [id number] [address] [place] [address], [place] [address] Oct, [facility] [address] [id number] [address] [place] [address], [place] [address] Oct, [facility] [address] [id number] [address] [place] [address], [place] [address] Sep, [facility] [address] [id number] [address] [place] [address], [place] [address] Sep, [facility] [address] [id number] [address] [place] [address], [place] [address] Sep, [facility] [address] [id number] [address] [place] [address], [place] [address] Sep, [facility] [address] [id number] [address] [place] [address], [place] [address] Sep, [facility] [address] [id number] [address] [place] [address], [place] [address] Jul, [facility] [address] [id number] [address] [place] [address], [place] [address] 24 Jul, 2013 [facility] [address] [id number] [address] [place] [address], [place] [address] Jul, [facility] [address] [id number] [address] [place] [address], [place] [address] Jul, [facility] [address] [id number] [address] [place] [address], [place] [address] 15 Jul, 2013 [facility] [address] [id number] [facility] [place] [address] 15 Jul, 2013 [facility] [address] [id number] [facility] [place] [address] Jul, [facility] [address] [id number] [facility] [place] [address] Jul, [facility] [address] [id number] [address] [place] [address], [place] [address] Jul, [facility] [address] [id number] [facility] [place] [address] Jul, [facility] [address] [id number] [address] [place] [address], [place] [address] Jul, [facility] [address] [id number] [address] [place] [address], [place] [address] Jul, [facility] [address] [id number] [address] [place] [address], [place] [address] Jun, [facility] [address] [id number] [address] [place] [address], [place] [address] Jun, [facility] [address] [id number] [address] [place] [address], [place] [address] Jun, [facility] [address] [id number] [address] [place] [address], [place] [address] Jun, [facility] [address] [id number] [address] [place] [address], [place] [address] Jun, [facility] [address] [id number] [address] [place] [address], [place] [address] Jun, [facility] [address] [id number] [address] [place] [address], [place] [address] Jun, [facility] [address] [id number] [address] [place] [address], [place] [address] Jun, [facility] [address] [id number] [address] [place] [address], [place] [address] May, [facility] [address] [id number] [address] [place] [address], [place] [address] May, [facility] [address] [id number] [address] [place] [address], [place] [address] May, [facility] [address] [id number] [address] [place] [address], [place] [address] May, [facility] [address] [id number] [address] [place] [address], [place] [address] May, [facility] [address] [id number] [address] [place] [address], [place] [address] May, [facility] [address] [id number] [address] [place] [address], [place] [address] May, [facility] [address] [id number] [address] [place] [address], [place] [address] May, [facility] [address] [id number] [address] [place] [address], [place] [address] Apr, [facility] [address] [id number] [address] [place] [address], [place] [address] Apr, [facility] [address] [id number] [address] [place] [address], [place] [address] Apr, [facility] [address] [id number] [address] [place] [address], [place] [address] Apr, [facility] [address] [id number] [address] [place] [address], [place] [address] Mar, [facility] [address] [id number] [address] [place] [address], [place] [address] Mar, [facility] [address] [id number] [address] [place] [address], [place] [address] Mar, [facility] [address] [id number] [address] [place] [address], [place] [address] Feb, [facility] [address] [id number] [address] [place] [address], [place] [address] Feb, [facility] [address] [id number] [address] [place] [address], [place] [address] Feb, [facility] [address] [id number] [address] [place] [address], [place] [address] Feb, [facility] [address] [id number] [address] [place] [address], [place] [address] Feb, [facility] [address] [id number] [address] [place] [address], [place] [address] Feb, [facility] [address] [id number] [address] [place] [address], [place] [address] Jan, [facility] [address] [id number] [address] [place] [address], [place] [address] Jan, [facility] [address] [id number] [address] [place] [address], [place] [address] Jan, [facility] [address] [id number] [address] [place] [address], [place] [address] Jan, [facility] [address] [id number] [address] [place] [address], [place] [address] Jan, [facility] [address] [id number] [address] [place] [address], [place] [address] Jan, [facility] [address] [id number] [address] [place] [address], [place] [address] Jan, [facility] [address] [id number] [address] [place] [address], [place] [address] 25 Dec, 2012 [facility] [address] [id number] [address] [place] [address], [place] [address] 16 Sep2012 [facility] [address] [id number] [address] [place] [address], [place] [address] 10 Dec, 2012 [facility] [address] [id number] [address] [place] [address], [place] [address] Dec, [facility] [address] [id number] [address] [place] [address], [place] [address] Nov, [facility] [address] [id number] [address] [place] [address], [place] [address] Nov, [facility] [address] [id number] [address] [place] [address], [place] [address] Nov, [facility] [address] [id number] [address] [place] [address], [place] [address] Nov, [facility] [address] [id number] [address] [place] [address], [place] [address] Nov, [facility] [address] [id number] [address] [place] [address], [place] [address] Nov, [facility] [address] [id number] [address] [place] [address], [place] [address] Nov, [facility] [address] [id number] [address] [place] [address], [place] [address] Oct, [facility] [address] [id number] [address] [place] [address], [place] [address] Oct, [facility] [address] [id number] [address] [place] [address], [place] [address] Oct, [facility] [address] [id number] [address] [place] [address], [place] [address] Oct, [facility] [address] [id number] [address] [place] [address], [place] [address] Oct, [facility] [address] [id number] [address] [place] [address], [place] [address] Oct, [facility] [address] [id number] [address] [place] [address], [place] [address] Oct, [facility] [address] [id number] [address] [place] [address], [place] [address] Oct, [facility] [address] [id number] [address] [place] [address], [place] [address] Sep, [facility] [address] [id number] [id number] August, [facility] [address] [id number] [address] [place] [address], [place] [address] August, [facility] [address] [id number] [address] [place] [address], [place] [address] Jul, [facility] [address] [id number] [address] [place] [address], [place] [address] Jul, [facility] [address] [id number] [address] [place] [address], [place] [address] Jul, [facility] [address] [id number] [address] [place] [address], [place] [address] Jul, [facility] [address] [id number] [address] [place] [address], [place] [address] Jul, [facility] [address] [id number] [address] [place] [address], [place] [address] 17 Jul, 2012 [facility] [address] [id number] [address] [place] [address], [place] [address] 16 Jul, 2012 [facility] [address] [id number] [address] [place] [address], [place] [address] Jun, [facility] [address] [id number] [address] [place] [address], [place] [address] Jun, [facility] [address] [id number] [address] [place] [address], [place] [address] Jun, [facility] [address] [id number] [address] [place] [address], [place] [address] Jun, [facility] [address] [id number] [address] [place] [address], [place] [address] Jun, [facility] [address] [id number] [address] [place] [address], [place] [address] May, [facility] [address] [id number] [address] [place] [address], [place] [address] 18 May, 2012 [facility] [address] [id number] [address] [place] [address], [place] [address] 04 May, 2012 [facility] [address] [id number] [address] [place] [address], [place] [address] 15 Apr, 2012 [facility] [address] [id number] [address] [place] [address], [place] [address] 14 Apr, 2012 [facility] [address] [id number] [address] [place] [address], [place] [address] Apr, [facility] [address] [id number] [address] [place] [address], [place] [address] Mar, [facility] [address] [id number] [address] [place] [address], [place] [address] Mar, [facility] [address] [id number] [address] [place] [address], [place] [address] Mar, [facility] [address] [id number] [address] [place] [address], [place] [address] Mar, [facility] [address] [id number] [address] [place] [address] Mar, [facility] [address] [id number] [address] [place] [address], [place] [address] Mar, [facility] [address] [id number] [address] [place] [address] Feb, [facility] [address] [id number] [address] [place] [address], [place] [address] Feb, [facility] [address] [id number] [address] [place] [address], [place] [address] Jan, [facility] [address] [id number] [address] [place] [address] Jan, [facility] [address] [id number] [address] [place] [address] Dec, [facility] [address] [id number] [address] [place] [address], [place] [address] Nov, [facility] [address] [id number] [address] [place] [address], [place] [address] Nov, [facility] [address] [id number] [address] [place] [address], [place] [address] Nov, [facility] [address] [id number] [address] [place] [address], [place] [address] Nov, [facility] [address] [id number] [address] [place] [address], [place] [address] Oct, [facility] [address] [id number] [address] [place] [address], [place] [address] Oct, [facility] [address] [id number] [address] [place] [address], [place] [address] Oct, [facility] [address] [id number] [address] [place] [address], [place] [address] Sep, [facility] [address] [id number] [address] [place] [address], [place] [address] Sep, [facility] [address] [id number] [address] [place] [address], [place] [address] Sep, [facility] [address] [id number] [address] [place] [address], [place] [address] August, [facility] [address] [id number] [address] [place] [address], [place] [address] August, [facility] [address] [id number] [address] [place] [address], [place] [address] Jul, [facility] [address] [id number] [address] [place] [address], [place] [address] Jul, [facility] [address] [id number] [address] [place] [address], [place] [address] Jul, [facility] [address] [id number] [address] [place] [address], [place] [address] Jul, [facility] [address] [id number] [address] [place] [address], [place] [address] Jun, [facility] [address] [id number] [address] [place] [address], [place] [address] May, [facility] [address] [id number] [address] [place] [address], [place] [address] Apr, [facility] [address] [id number] [address] [place] [address], [place] [address] Apr, [facility] [address] [id number] [address] [place] [address], [place] [address] Apr, [facility] [address] [id number] [address] [place] [address], [place] [address] Apr, [facility] [address] [id number] [address] [place] [address], [place] [address] Apr, [facility] [address] [id number] [address] [place] [address], [place] [address] Apr, [facility] [address] [id number] [address] [place] [address], [place] [address] Mar, [facility] [address] [id number] [address] [place] [address], [place] [address] Mar, [facility] [address] [id number] [address] [place] [address], [place] [address] Feb, [facility] [address] [id number] [address] [place] [address], [place] [address] 18 Feb, 2011 [facility] [address] [id number] [address] [place] [address], [place] [address] 17 Feb, 2011 [facility] [address] [id number] [address] [place] [address], [place] [address] 09 Feb, 2011 [facility] [address] [id number] [address] [place] [address], [place] [address] 20 Jan, 2011 [facility] [address] [id number] [address] [place] [address], [place] [address] 18 Jan, 2011 [facility] [address] [id number] [address] [place] [address], [place] [address] 18 Jan, 2011 [facility] [address] [id number] [address] [place] [address], [place] [address] 18 Jan, 2011 [facility] [address] [id number] [address] [place] [address], [place] [address] 17 Nov, 2010 [facility] [address] [id number] [address] [place] [address], [place] [address] Mar, [facility] [address] [id number] [address] [place] [address], [place] [address] Mar, [facility] [address] [id number] [address] [place] [address], [place] [address] 30 Feb, 2010 [facility] [address] [id number] [address] [place] [address] 15 Feb, 2010 [facility] [address] [id number] [address] [place] [address], [place] [address] Jan, [facility] [address] [id number] [address] [place] [address] Jan, [facility] [address] [id number] [address] [place] [address] 15 Sep, 2009 [facility] [address] [id number] [address] [place] [address] 16 May, 2009 [facility] [address] [id number] [address] [place] [address], [place] [address] Apr, [facility] [address] [id number] [address] [place] [address] Mar, [facility] [address] [id number] [address] [place] [address] 15 Feb, 2009 [facility] [address] [id number] [address] [place] [address] 10 Feb, 2009 [facility] [address] [id number] [address] [place] [address] Feb, [facility] [address] [id number] [address] [place] [address] 22 Jan, 2009 [facility] [address] [facility] [id number] [address] [place] [address] Jan, [facility] [address] [facility] [id number] [address] [place] [address] Jan, [facility] [address] [facility] [id number] [address] [place] [address] Jan, [facility] [address] [facility] [id number] [address] [place] [address] August, IMMUNIZATIONS No Known Immunizations SOCIAL HISTORY [...] age 6 Hospitalization History surgery Hospitalization History [facility], indeann webber treatment few times for BH
--- OUTSIDE RECORDS SUMMARY | 2019-09-29 10:48 | XMS REPORT ---
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 Active 29453137 Problem Open-angle glaucoma of both eyes, unspecified glaucoma stage, unspecified open-angle glaucoma type H40.10X0 Acti ve 24934453 Problem Adjustment disorder, unspecified type F43.20 Active 31407813 Problem Obstructive sleep apnea G47.33 Active 88178267 Problem Hypertensive retinopathy of both eyes H35.033 Active 0015240 Problem Type 2 diabetes mellitus with complication E11.8 Active 29469860 Problem Essential hypertension I10 Active 14845861 Problem Diabetes E11.9 Active 89317848 Problem Bipolar disorder, in partial remission, most rec ent episode manic F31.73 Active 44644451 Problem Intermittent explosive disorder in adult F63.81 Active 62495475 Problem Other diabetic neurological complication associated with type 2 diabetes mellitus E11.49 Active 387153792 Problem Depression F32.9 Active 64348971 Problem Neuropathy G62.9 Active 817892149 Problem Intermittent explosive disorder F63.81 Active 49700725 Problem Bipolar disorder, unspecified F31.9 Active 63269949 Problem Mild intellectual disability F70 A ctive 13093108 Problem Reactive airway disease, mild intermittent, uncomplicated J45.20 Active 220300855 Problem Gastroesophageal reflux disease without esophagitis K21.9 Active [id number] ALLERGIES No Information ENCOUNTERS Encounter Location Date Diagnosis [facility] [address] [facility] [id number] [address] [place] [address] Dec, [facility] [address] [facility] [id number] [address] [place] [phone] Oct, OUTREACH [facility] [address] [place] [id number] [place] [address] Oct, Oral health maintenance stat us requiring routine preventive dental care K08.9 [facility] [address] [facility] [id number] [address] [place] [address] August, Intermittent explosive disor salvatore in adult F63.81 ; Bipolar disorder, unspecified F31.9 and Mild intellectual disability F70 [facility] [address] [facility] [id number] [address] [place] [address] [phone] August, Dental caries K02.9 [facility] [address] [facility] [id number] [address] [place] [address] Jul, Onychomycosis B35.1 ; Other diabetic neurological complication associated with type 2 diabetes mellitus E11.49 and Tinea pedis of both feet B35.3 [facility] [address] [facility] [id number] [address] [place] [address] [id number] Jul, Caries K02.9 [facility] [address] [facility] [id number] [address] [place] [phone] Jul, Type 2 diabetes mellitus wit h complication E11.8 ; Tobacco abuse Z72.0 and Bipolar disorder, unspecified F31.9 [facility] [address] [facility] [id number] [address] [place] [address] Jun, [facility] [address] [facility] [id number] [address] [place] [address] [phone] Jun, Dental examination Z01.20 an d Oral health maintenance status requiring routine preventive dental care K08.9 [facility] [address] [facility] [id number] [address] [place] [phone] May, Bilateral impacted cerumen H 61.23 [facility] [address] [facility] [id number] [address] [place] [phone] Apr, Bipolar disorder, unspecifie d F31.9 ; Intermittent explosive disorder in adult F63.81 ; Type 2 diabetes mellitus with complication E11.8 ; Tobacco abuse Z72.0 and Colon cancer screening Z12.11 [facility] [address] [address] Apr, Onychomycosis B35.1 and Othe r diabetic neurological complication associated with type 2 diabetes mellitus E11.49 [facility] [address] [place] [id number] [place] [address] Apr, Intermittent explosive disor salvatore in adult F63.81 ; Bipolar disorder, unspecified F31.9 and Mild intellectual disability F70 [place] [address] [address] Mar, Diabetes E11.9 [facility] [address] [address] Jan, Encounter for immunization Z 23 [place] [address] [address] Jan, Tinea pedis of both feet B35 .3 ; Other diabetic neurological complication associated with type 2 diabetes mellitus E11.49 and Onychomycosis B35.1 [place] [address] [place] [id number] [address] [place] [address] Nov, Type 2 diabetes mellitus wit h complication E11.8 [place] [address] [place] [id number] [address] [place] [address] Nov, [facility] [address] [address] Oct, Intermittent explosive disor salvatore in adult F63.81 ; Bipolar disorder, unspecified F31.9 and Mild intellectual disability F70 [facility] [address] [place] [id number] [address] [place] [address] Oct, [facility] [address] [id number] [address] [place] [address] [phone] Oct, Dental examination Z01.20 [facility] [address] [place] [id number] [address] [place] [address] Oct, Onychomycosis B35.1 and Othe r diabetic neurological complication associated with type 2 diabetes mellitus E11.49 [place] [address] [place] [id number] [address] [place] [address] Sep, Type 2 diabetes mellitus wit h complication E11.8 and Colon cancer screening Z12.11 [place] [address] [place] [id number] [address] [place] [address] Sep, Type 2 diabetes mellitus wit h complication E11.8 ; Colon cancer screening Z12.11 and Neuropathy G62.9 [place] [address] [place] [id number] [address] [place] [address] August, Diabetes E11.9 [facility] [address] [id number] [address] [place] [address] [id number] Jul, Dental examination Z01.20 [place] [address] [place] [id number] [address] [place] [address] May, Mild intellectual disability F70 [place] [address] [address] May, Mild intellectual disability F70 ; High risk medication use Z79.899 ; Intermittent explosive disorder in adult F63.81 and Bipolar disorder, unspecified F31.9 [place] [address] [place] [id number] [address] [place] [phone] May, [place] [address] [place] [id number] [address] [place] [address] May, [place] [address] [place] [id number] [address] [place] [address] Apr, Type 2 diabetes mellitus wit h complication E11.8 ; Mild intellectual disability F70 ; Gastroesophageal reflux disease without esophagitis K21.9 ; Reactive airway disease, mild intermittent, uncomplicated J45.20 and Tobacco abuse Z72.0 [place] [address] [place] [id number] [address] [place] [address] Apr, High risk medication use Z79 .899 ; Mild intellectual disability F70 ; Intermittent explosive disorder in adult F63.81 and Bipolar disorder, unspecified F31.9 [facility] [address] [id number] [address] [place] [address] [phone] Mar, Encounter for dental exam an d cleaning w/o abnormal findings Z01.20 [facility] [address] [id number] [address] [place] [address] [phone] Mar, Dental examination Z01.20 [facility] [address] [id number] [address] [place] [address] 12 Jan, 2017 [facility] [address] [id number] [address] [place] [phone] Jan, [facility] [address] [id number] [address] [place] [phone] Jan, Mild intellectual disability F70 ; Bipolar disorder, unspecified F31.9 and Intermittent explosive disorder in adult F63.81 [facility] [address] [id number] [address] [place] [phone] Jan, Diabetes E11.9 [facility] [address] [id number] [address] [place] [address] [phone] Dec, Encounter for dental examina tion and cleaning without abnormal findings Z01.20 [facility] [address] [id number] [address] [place] [phone] Dec, Bipolar disorder, unspecifie d F31.9 ; Intermittent explosive disorder in adult F63.81 and Mild intellectual disability F70 [facility] [address] [id number] [address] [place] [phone] Nov, Diabetes E11.9 [facility] [address] [id number] [address] [place] [phone] Nov, [facility] [address] [id number] [address] [place] [phone] Nov, Diabetes E11.9 and Colon can cer screening Z12.[address] [id number] [id number] 21 Sep, 2016 Dental examination Z01.20 [facility] [address] [id number] [address] [place] [address] [id number] 21 Sep, 2016 Encounter for dental examina tion and cleaning without abnormal findings Z01.20 [facility] [address] [id number] [address] [place] [phone] 13 Sep, 2016 Bipolar disorder, unspecifie d F31.9 [facility] [address] [id number] [address] [place] [phone] 12 Sep, 2016 Bipolar disorder, unspecifie d F31.9 [facility] [address] [facility] [id number] [address] [place] [phone] Jul, [facility] [address] [facility] [id number] [address] [place] [phone] Jul, Type 2 diabetes mellitus wit h complication E11.8 [facility] [address] [id number] [address] [place] [address] [id number] 15 Jun, 2016 Encounter for dental examina tion and cleaning without abnormal findings Z01.[address] [id number] [id number] 15 Jun, 2016 Dental examination Z01.20 [facility] [address] [facility] [id number] [address] [place] [phone] 18 Apr, 2016 Sports physical Z02.5 [facility] [address] [id number] [address] [place] [phone] 14 Mar, 2016 Bipolar disorder, in partial remission, most recent episode manic F31.73 and Intermittent explosive disorder in adult F63.81 [facility] [address] [id number] [address] [place] [phone] 08 Mar, 2016 [facility] [address] [facility] [id number] [address] [place] [phone] Mar, Diabetes E11.9 [facility] [address] [id number] [address] [place] [address] [id number] Feb, Encounter for dental examina tion and cleaning without abnormal findings Z01.20 [facility] [address] [id number] [address] [place] [phone] 22 Dec, 2015 Nocturnal hypoxemia G47.34 a nd Encounter for immunization Z23 [facility] [address] [facility] [id number] [address] [place] [phone] 15 Dec, 2015 [facility] [address] [facility] [id number] [address] [place] [phone] Dec, [facility] [address] [facility] [id number] [address] [place] [phone] Dec, Bipolar disorder, unspecifie d F31.9 [facility] [address] [id number] [address] [place] [address] [phone] Oct, Encounter for dental examina tion and cleaning without abnormal findings Z01.20 [facility] [place] [address] [id number] [place] [address] [phone] Oct, Dental examination Z01.20 [facility] [address] [facility] [id number] [address] [place] [phone] Oct, Diabetes E11.9 [facility] [address] [facility] [id number] [address] [place] [phone] Oct, Diabetes E11.9 ; Reactive ai rway disease, mild intermittent, uncomplicated J45.20 and Tobacco abuse Z72.0 [facility] [address] [facility] [id number] [address] [place] [phone] Sep, Bipolar disorder, unspecifie d F31.9 and Depression F32.9 [facility] [address] [facility] [id number] [address] [place] [phone] Sep, [facility] [address] [facility] [id number] [address] [place] [address] August, Tinea pedis of both feet B35 .3 and DM w/o complication type II, uncontrolled E11.65 [place] [address] [address] Jul, [place] [address] [address] Jul, [place] [address] [address] Jul, Obstructive sleep apnea G47. 33 [place] [address] [address] Jun, Diabetes E11.9 [place] [address] [address] Jun, [place] [address] [address] Jun, [place] [address] [address] Jun, Bipolar disorder, unspecifie d F31.9 and Mental retardation F79 [place] [address] [address] Apr, [place] [address] [address] Feb, Diabetes E11.9 ; Encounter f or immunization Z23 ; Cough R05 and Nicotine abuse Z72.0 [place] [address] [address] Jan, Bipolar disorder, unspecifie d F31.9 and Diabetes mellitus without mention of complication, type II or unspecified type, uncontrolled 250.02 [place] [address] [address] Jan, [place] [address] [phone] Dec, Reactive airway disease 493. 90 and Enuresis 788.30 [place] [address] [id number] [address] [place] [phone] Dec, [facility] [address] [facility] [id number] [address] [place] [phone] Nov, [facility] [address] [facility] [id number] [address] [place] [address] Nov, [facility] [address] [facility] [id number] [address] [place] [address] Nov, Annual physical exam V70.0 ; Urinary incontinence 788.30 ; Diabetes 250.00 and Hypertension 401.9 [facility] [address] [id number] [address] [place] [address] Oct, Diabetes mellitus without me ntion of complication, type II or unspecified type, uncontrolled 250.02 [facility] [address] [facility] [id number] [address] [place] [phone] Oct, Diabetes mellitus without me ntion of complication, type II or unspecified type, uncontrolled 250.02 [facility] [address] [facility] [id number] [address] [place] [phone] Oct, Diabetes mellitus without me ntion of complication, type II or unspecified type, uncontrolled 250.02 [facility] [address] [facility] [id number] [address] [place] [address] Oct, [facility] [address] [facility] [id number] [address] [place] [phone] Oct, [facility] [address] [facility] [id number] [address] [place] [address] Oct, Bipolar disorder, unspecifie d 296.80 [facility] [address] [id number] [place] [address] [id number] Sep, Dental examination V72.2 [facility] [address] [facility] [id number] [address] [place] [phone] August, [facility] [address] [id number] [place] [address] [id number] August, Dental examination V72.2 [facility] [address] [id number] [address] [place] [address], [place] [address] August, [facility] [address] [id number] [address] [place] [phone] 14 Jul, 2014 [facility] [address] [id number] [address] [place] [phone] Jul, [facility] [address] [id number] [address] [place] [address] 17 Jun, 2014 [facility] [address] [id number] [address] [place] [phone] Jun, [facility] [address] [id number] [address] [place] [phone] Jun, [facility] [address] [id number] [address] [place] [phone] Jun, [facility] [address] [id number] [address] [place] [address] May, [facility] [address] [id number] [address] [place] [phone] May, 2014 [facility] [address] [id number] [address] [place] [phone] 16 May, 2014 [facility] [address] [id number] [address] [place] [phone] 16 May, 2014 [facility] [address] [id number] [address] [place] [phone] May, 2014 [facility] [address] [id number] [address] [place] [phone] May, 2014 [facility] [address] [id number] [address] [place] [phone] 16 May, 2014 [facility] [address] [id number] [address] [place] [phone] 16 May, 2014 [facility] [address] [id number] [address] [place] [address], [place] [address] May, 2014 [facility] [address] [id number] [address] [place] [address], [place] [address] May, 2014 [facility] [address] [id number] [address] [place] [address], [place] [address] May, 2014 [facility] [address] [id number] [address] [place] [address], [place] [address] May, 2014 [facility] [address] [id number] [address] [place] [address], [place] [address] May, [facility] [address] [id number] [address] [place] [address], [place] [address] May, 2014 [facility] [address] [id number] [address] [place] [address], [place] [address] May, [facility] [address] [id number] [address] [place] [address], [place] [address] Apr, [facility] [address] [id number] [address] [place] [address], [place] [address] Apr, [facility] [address] [id number] [address] [place] [address], [place] [address] Apr, [facility] [address] [id number] [address] [place] [address], [place] [address] Apr, [facility] [address] [id number] [address] [place] [address], [place] [address] Apr, [facility] [address] [id number] [address] [place] [address], [place] [address] Apr, [facility] [address] [id number] [address] [place] [address], [place] [address] Apr, [facility] [address] [id number] [address] [place] [address], [place] [address] Apr, [facility] [address] [id number] [address] [place] [address], [place] [address] Apr, [facility] [address] [id number] [address] [place] [address], [place] [address] Apr, [facility] [address] [id number] [address] [place] [address], [place] [address] Apr, [facility] [address] [id number] [address] [place] [address], [place] [address] Apr, [facility] [address] [id number] [address] [place] [address], [place] [address] Mar, [facility] [address] [id number] [address] [place] [address], [place] [address] Mar, [facility] [address] [id number] [address] [place] [address], [place] [id number] Mar, [facility] [address] [id number] [address] [place] [address], [place] [id number] Mar, [facility] [address] [id number] [address] [place] [address], [place] [id number] Mar, [facility] [address] [id number] [address] [place] [address], [place] [address] Mar, [facility] [address] [id number] [address] [place] [address], [place] [id number] 13 Feb, 2014 [facility] [address] [id number] [address] [place] [address], [place] [id number] Feb, [facility] [address] [id number] [address] [place] [address], [place] [id number] Feb, [facility] [address] [id number] [address] [place] [address], [place] [id number] 13 Feb, 2014 [facility] [address] [id number] [address] [place] [address], [place] [id number] 14 Jan, 2014 [facility] [address] [id number] [address] [place] [address], [place] [id number] 14 Jan, 2014 [facility] [address] [id number] [address] [place] [address], [place] [id number] 14 Jan, 2014 [facility] [address] [id number] [address] [place] [address], [place] [id number] 14 Jan, 2014 [facility] [address] [id number] [address] [place] [address], [place] [id number] Dec, [facility] [address] [id number] [address] [place] [address], [place] [address] Dec, [facility] [address] [id number] [address] [place] [address], [place] [id number] Dec, [facility] [address] [id number] [address] [place] [address], [place] [id number] Dec, [facility] [address] [id number] [address] [place] [address], [place] [id number] Nov, [facility] [address] [id number] [address] [place] [address], [place] [address] Nov, [facility] [address] [id number] [address] [place] [address], [place] [id number] Nov, [facility] [address] [id number] [address] [place] [address], [place] [address] Nov, [facility] [address] [id number] [address] [place] [address], [place] [address] Nov, [facility] [address] [id number] [address] [place] [address], [place] [address] Nov, [facility] [address] [id number] [address] [place] [address], [place] [address] Nov, [facility] [address] [id number] [address] [place] [address], [place] [address] Oct, [facility] [address] [id number] [address] [place] [address], [place] [address] Oct, [facility] [address] [id number] [address] [place] [address], [place] [address] Oct, [facility] [address] [id number] [address] [place] [address], [place] [address] Oct, [facility] [address] [id number] [address] [place] [address], [place] [address] Oct, [facility] [address] [id number] [address] [place] [address], [place] [address] Oct, [facility] [address] [id number] [address] [place] [address], [place] [address] Oct, [facility] [address] [id number] [address] [place] [address], [place] [address] Sep, [facility] [address] [id number] [address] [place] [address], [place] [address] Sep, [facility] [address] [id number] [address] [place] [address], [place] [address] Sep, [facility] [address] [id number] [address] [place] [address], [place] [address] Sep, [facility] [address] [id number] [address] [place] [address], [place] [address] Sep, [facility] [address] [id number] [address] [place] [address], [place] [address] Jul, [facility] [address] [id number] [address] [place] [address], [place] [address] Jul, [facility] [address] [id number] [address] [place] [address], [place] [address] Jul, [facility] [address] [id number] [address] [place] [address], [place] [address] Jul, [facility] [address] [id number] [address] [place] [address], [place] [address] Jul, [facility] [address] [id number] [address] [place] [address], [place] [address] Jul, [facility] [address] [id number] [facility] [place] [address] Jul, [facility] [address] [id number] [facility] [place] [address] Jul, [facility] [address] [id number] [facility] [address] Jul, [facility] [address] [id number] [address] [place] [address], [place] [address] Jul, [facility] [address] [id number] [address] [place] [address], [place] [address] Jul, [facility] [address] [id number] [address] [place] [address], [place] [address] Jul, [facility] [address] [id number] [address] [place] [address], [place] [address] Jun, [facility] [address] [id number] [address] [place] [address], [place] [address] Jun, [facility] [address] [id number] [address] [place] [address], [place] [address] Jun, [facility] [address] [id number] [address] [place] [address], [place] [address] Jun, [facility] [address] [id number] [address] [place] [address], [place] [address] Jun, [facility] [address] [id number] [address] [place] [address], [place] [address] Jun, [facility] [address] [id number] [address] [place] [address], [place] [address] Jun, [facility] [address] [id number] [address] [place] [address], [place] [address] Jun, [facility] [address] [id number] [address] [place] [address], [place] [address] May, [facility] [address] [id number] [address] [place] [address], [place] [address] May, [facility] [address] [id number] [address] [place] [address], [place] [address] May, [facility] [address] [id number] [address] [place] [address], [place] [address] May, [facility] [address] [id number] [address] [place] [address], [place] [address] May, [facility] [address] [id number] [address] [place] [address], [place] [address] May, [facility] [address] [id number] [address] [place] [address], [place] [address] May, [facility] [address] [id number] [address] [place] [address], [place] [address] May, [facility] [address] [id number] [address] [place] [address], [place] [address] Apr, [facility] [address] [id number] [address] [place] [address], [place] [address] Apr, [facility] [address] [id number] [address] [place] [address], [place] [address] Apr, [facility] [address] [id number] [address] [place] [address], [place] [address] Apr, [facility] [address] [id number] [address] [place] [address], [place] [address] Mar, [facility] [address] [id number] [address] [place] [address], [place] [address] Mar, [facility] [address] [id number] [address] [place] [address], [place] [address] Mar, [facility] [address] [id number] [address] [place] [address], [place] [address] Feb, [facility] [address] [id number] [address] [place] [address], [place] [address] Feb, [facility] [address] [id number] [address] [place] [address], [place] [address] Feb, [facility] [address] [id number] [address] [place] [address], [place] [address] Feb, [facility] [address] [id number] [address] [place] [address], [place] [address] Feb, [facility] [address] [id number] [address] [place] [address], [place] [address] Feb, [facility] [address] [id number] [address] [place] [address], [place] [address] Jan, [facility] [address] [id number] [address] [place] [address], [place] [address] Jan, [facility] [address] [id number] [address] [place] [address], [place] [address] Jan, [facility] [address] [id number] [address] [place] [address], [place] [address] Jan, [facility] [address] [id number] [address] [place] [address], [place] [address] Jan, [facility] [address] [id number] [address] [place] [address], [place] [address] Jan, [facility] [address] [id number] [address] [place] [address], [place] [address] Jan, [facility] [address] [id number] [address] [place] [address], [place] [address] 25 Dec, 2012 [facility] [address] [id number] [address] [place] [address], [place] [address] 16 Dec, 2012 [facility] [address] [id number] [address] [place] [address], [place] [address] 10 Dec, 2012 [facility] [address] [id number] [address] [place] [address], [place] [address] 05 Dec, 2012 [facility] [address] [id number] [address] [place] [address], [place] [address] Nov, [facility] [address] [id number] [address] [place] [address], [place] [address] Nov, [facility] [address] [id number] [address] [place] [address], [place] [address] Nov, [facility] [address] [id number] [address] [place] [address], [place] [address] Nov, [facility] [address] [id number] [address] [place] [address], [place] [address] Nov, [facility] [address] [id number] [address] [place] [address], [place] [address] Nov, [facility] [address] [id number] [address] [place] [address], [place] [address] Nov, [facility] [address] [id number] [address] [place] [address], [place] [address] Oct, [facility] [address] [id number] [address] [place] [address], [place] [address] Oct, [facility] [address] [id number] [address] [place] [address], [place] [address] Oct, [facility] [address] [id number] [address] [place] [address], [place] [address] Oct, [facility] [address] [id number] [address] [place] [address], [place] [address] Oct, [facility] [address] [id number] [address] [place] [address], [place] [address] Oct, [facility] [address] [id number] [address] [place] [address], [place] [address] Oct, [facility] [address] [id number] [address] [place] [address], [place] [address] Oct, [facility] [address] [id number] [address] [place] [address], [place] [address] Sep, Suleiman PEREZ [address] [facility] [address] [id number] [id number] 30 Aug, 2012 [facility] [address] [id number] [address] [place] [address], [place] [address] August, [facility] [address] [id number] [facility] [place] [address] Jul, [facility] [address] [id number] [address] [place] [address], [place] [address] Jul, [facility] [address] [id number] [address] [place] [address], [place] [address] Jul, [facility] [address] [id number] [address] [place] [address], [place] [address] Jul, [facility] [address] [id number] [address] [place] [address], [place] [address] Jul, [facility] [address] [id number] [address] [place] [address], [place] [address] Jul, [facility] [address] [id number] [address] [place] [address], [place] [address] 16 Jul, 2012 [facility] [address] [id number] [address] [place] [address], [place] [address] Jun, [facility] [address] [id number] [address] [place] [address], [place] [address] Jun, [facility] [address] [id number] [address] [place] [address], [place] [address] Jun, [facility] [address] [id number] [address] [place] [address], [place] [address] Jun, [facility] [address] [id number] [address] [place] [address], [place] [address] Jun, [facility] [address] [id number] [address] [place] [address], [place] [address] May, [facility] [address] [id number] [address] [place] [address], [place] [address] 18 May, 2012 [facility] [address] [id number] [address] [place] [address], [place] [address] 04 May, 2012 [facility] [address] [id number] [address] [place] [address], [place] [address] 15 Apr, 2012 [facility] [address] [id number] [address] [place] [address], [place] [address] 14 Apr, 2012 [facility] [address] [id number] [address] [place] [address], [place] [address] 07 Apr, 2012 [facility] [address] [id number] [address] [place] [address], [place] [address] Mar, [facility] [address] [id number] [address] [place] [address], [place] [address] 31 Mar, 2012 [facility] [address] [id number] [address] [place] [address], [place] [address] Mar, [facility] [address] [id number] [address] [place] [address], [place] [address] Mar, [facility] [address] [id number] [address] [place] [address], [place] [address] Mar, [facility] [address] [id number] [address] [place] [address] Mar, [facility] [address] [id number] [address] [place] [address] Feb, [facility] [address] [id number] [address] [place] [address] Feb, [facility] [address] [id number] [address] [place] [address], [place] [address] Jan, [facility] [address] [id number] [address] [place] [address], [place] [address] Jan, [facility] [address] [id number] [address] [place] [address], [place] [address] 25 Dec, 2011 [facility] [address] [id number] [address] [place] [id number] Nov, [facility] [address] [id number] [address] [place] [address], [place] [address] Nov, [facility] [address] [id number] [address] [place] [address], [place] [address] Nov, [facility] [address] [id number] [address] [place] [address], [place] [address] Nov, [facility] [address] [id number] [address] [place] [address], [place] [address] Oct, [facility] [address] [id number] [address] [place] [address], [place] [address] Oct, [facility] [address] [id number] [address] [place] [address], [place] [address] Oct, [facility] [address] [id number] [address] [place] [address], [place] [address] Sep, [facility] [address] [id number] [address] [place] [address], [place] [address] Sep, [facility] [address] [id number] [address] [place] [address], [place] [address] Sep, [facility] [address] [id number] [address] [place] [address], [place] [address] August, [facility] [address] [id number] [address] [place] [address], [place] [address] August, [facility] [address] [id number] [address] [place] [address], [place] [address] Jul, [facility] [address] [id number] [address] [place] [address], [place] [address] 24 Jul, 2011 [facility] [address] [id number] [address] [place] [address], [place] [address] 17 Jul, 2011 [facility] [address] [id number] [address] [place] [address], [place] [address] Jul, [facility] [address] [id number] [address] [place] [address], [place] [address] Jun, [facility] [address] [id number] [address] [place] [address], [place] [address] 06 May, 2011 [facility] [address] [id number] [address] [place] [address], [place] [address] Apr, [facility] [address] [id number] [address] [place] [address], [place] [address] Apr, [facility] [address] [id number] [address] [place] [address], [place] [address] Apr, [facility] [address] [id number] [address] [place] [address], [place] [address] Apr, [facility] [address] [id number] [address] [place] [address], [place] [address] Apr, [facility] [address] [id number] [address] [place] [address], [place] [address] Apr, [facility] [address] [id number] [address] [place] [address], [place] [address] Mar, [facility] [address] [id number] [address] [place] [address], [place] [address] Mar, [facility] [address] [id number] [address] [place] [address], [place] [address] Feb, [facility] [address] [id number] [address] [place] [address], [place] [address] Feb, [facility] [address] [id number] [address] [place] [address], [place] [address] 17 Feb, 2011 [facility] [address] [id number] [address] [place] [address], [place] [address] 09 Feb, 2011 [facility] [address] [id number] [address] [place] [address], [place] [address] 20 Jan, 2011 [facility] [address] [id number] [address] [place] [id number] 18 Jan, 2011 [facility] [address] [id number] [address] [place] [address], [place] [address] 18 Jan, 2011 [facility] [address] [id number] [address] [place] [address], [place] [id number] 18 Jan, 2011 [facility] [address] [id number] [address] [place] [address], [place] [address] 17 Nov, 2010 [facility] [address] [id number] [address] [place] [address], [place] [address] Mar, [facility] [address] [id number] [address] [place] [address], [place] [address] Mar, [facility] [address] [id number] [address] [place] [id number] 30 Feb, 2010 [facility] [address] [id number] [address] [place] [address], [place] [id number] Feb, [facility] [address] [id number] [address] [place] [phone] Jan, [facility] [address] [id number] [address] [place] [address], [place] [id number] Jan, [facility] [address] [id number] [address] [place] [id number] Sep, [facility] [address] [id number] [address] [place] [id number] 16 May, 2009 [facility] [address] [id number] [address] [place] [phone] Apr, [facility] [address] [id number] [address] [place] [address], [place] [id number] Mar, [facility] [address] [id number] [address] [place] [id number] 15 Feb, 2009 [facility] [address] [id number] [address] [place] [phone] Feb, [facility] [address] [id number] [address] [place] [id number] 10 Feb, 2009 [facility] [address] [facility] [id number] [address] [place] [phone] Jan, [facility] [address] [facility] [id number] [address] [place] [phone] Jan, [facility] [address] [facility] [id number] [address] [place] [phone] Jan, [facility] [address] [facility] [id number] [address] [place] [id number] Jan, [facility] [address] [facility] [id number] [address] [place] [id number] August, IMMUNIZATIONS No Known Immunizations SOCIAL HISTORY [...] age 6 Hospitalization History surgery Hospitalization History [facility], inpa tient treatment few times for BH
--- OUTSIDE RECORDS SUMMARY | 2019-09-29 10:49 | XMS REPORT ---
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 Active 88344352 Problem Open-angle glaucoma of both eyes, unspecified glaucoma stage, unspecified open-angle glaucoma type H40.10X0 Acti ve 93949945 Problem Adjustment disorder, unspecified type F43.20 Active 64151530 Problem Obstructive sleep apnea G47.33 Active 56319856 Problem Hypertensive retinopathy of both eyes H35.033 Active 3940671 Problem Type 2 diabetes mellitus with complication E11.8 Active 47330514 Problem Essential hypertension I10 Active 91899708 Problem Diabetes E11.9 Active 45180416 Problem Bipolar disorder, in partial remission, most rec ent episode manic F31.73 Active 97244089 Problem Intermittent explosive disorder in adult F63.81 Active 31898660 Problem Other diabetic neurological complication associated with type 2 diabetes mellitus E11.49 Active 253158590 Problem Depression F32.9 Active 04640488 Problem Neuropathy G62.9 Active 170761037 Problem Intermittent explosive disorder F63.81 Active 27161760 Problem Bipolar disorder, unspecified F31.9 Active 03327818 Problem Mild intellectual disability F70 A ctive 71103694 Problem Reactive airway disease, mild intermittent, uncomplicated J45.20 Active 659645421 Problem Gastroesophageal reflux disease without esophagitis K21.9 Active 223215045 ALLERGIES No Information ENCOUNTERS Encounter Location Date Diagnosis [facility] [address] [facility] [id number] [address] [place] [address] Dec, [facility] [address] [facility] [id number] [address] [place] [address] Oct, OUTREACH [facility] [address] [place] [id number] [place] [address] Oct, Oral health maintenance stat us requiring routine preventive dental care K08.9 [facility] [address] [facility] [id number] [address] [place] [address] August, Intermittent explosive disor salvatore in adult F63.81 ; Bipolar disorder, unspecified F31.9 and Mild intellectual disability F70 [facility] [address] [facility] [id number] [address] [place] [address] [id number] August, Dental caries K02.9 [facility] [address] [facility] [id number] [address] [place] [address] Jul, Onychomycosis B35.1 ; Other diabetic neurological complication associated with type 2 diabetes mellitus E11.49 and Tinea pedis of both feet B35.3 [facility] [address] [facility] [id number] [address] [place] [address] [id number] Jul, Caries K02.9 [facility] [address] [facility] [id number] [address] [place] [address] Jul, Type 2 diabetes mellitus wit h complication E11.8 ; Tobacco abuse Z72.0 and Bipolar disorder, unspecified F31.9 [facility] [address] [facility] [id number] [address] [place] [address] Jun, [facility] [address] [facility] [id number] [address] [place] [address] [id number] Jun, Dental examination Z01.20 an d Oral health maintenance status requiring routine preventive dental care K08.9 [facility] [address] [facility] [id number] [address] [place] [address] May, Bilateral impacted cerumen H 61.23 [facility] [address] [facility] [id number] [address] [place] [address] Apr, Bipolar disorder, unspecifie d F31.9 ; Intermittent explosive disorder in adult F63.81 ; Type 2 diabetes mellitus with complication E11.8 ; Tobacco abuse Z72.0 and Colon cancer screening Z12.11 [facility] [address] [address] Apr, Onychomycosis B35.1 and Othe r diabetic neurological complication associated with type 2 diabetes mellitus E11.49 [facility] [address] [place] [id number] [address] [place] [address] Apr, Intermittent explosive disor salvatore in adult F63.81 ; Bipolar disorder, unspecified F31.9 and Mild intellectual disability F70 [place] [address] [address] Mar, Diabetes E11.9 [facility] [address] [address] Jan, Encounter for immunization Z 23 [place] [address] [address] Jan, Tinea pedis of both feet B35 .3 ; Other diabetic neurological complication associated with type 2 diabetes mellitus E11.49 and Onychomycosis B35.1 [place] [address] [place] [id number] [address] [place] [address] Nov, Type 2 diabetes mellitus wit h complication E11.8 [place] [address] [place] [id number] [address] [place] [address] Nov, [facility] [address] [address] Oct, Intermittent explosive disor salvatore in adult F63.81 ; Bipolar disorder, unspecified F31.9 and Mild intellectual disability F70 [facility] [address] [place] [id number] [address] [place] [address] Oct, [facility] [address] [id number] [address] [place] [address] [id number] Oct, Dental examination Z01.20 [facility] [address] [place] [id number] [address] [place] [address] Oct, Onychomycosis B35.1 and Othe r diabetic neurological complication associated with type 2 diabetes mellitus E11.49 [place] [address] [place] [id number] [address] [place] [address] Sep, Type 2 diabetes mellitus wit h complication E11.8 and Colon cancer screening Z12.11 [place] [address] [place] [id number] [address] [place] [address] Sep, Type 2 diabetes mellitus wit h complication E11.8 ; Colon cancer screening Z12.11 and Neuropathy G62.9 [place] [address] [place] [id number] [address] [place] [address] August, Diabetes E11.9 [facility] [address] [place] [id number] [address] [place] [address] [id number] Jul, Dental examination Z01.20 [place] [address] [place] [id number] [address] [place] [address] May, Mild intellectual disability F70 [place] [address] [address] May, Mild intellectual disability F70 ; High risk medication use Z79.899 ; Intermittent explosive disorder in adult F63.81 and Bipolar disorder, unspecified F31.9 [place] [address] [place] [id number] [address] [place] [address] May, [place] [address] [place] [id number] [address] [place] [address] May, [place] [address] [place] [id number] [address] [place] [address] Apr, Type 2 diabetes mellitus wit h complication E11.8 ; Mild intellectual disability F70 ; Gastroesophageal reflux disease without esophagitis K21.9 ; Reactive airway disease, mild intermittent, uncomplicated J45.20 and Tobacco abuse Z72.0 [place] [address] [place] [id number] [address] [place] [address] Apr, High risk medication use Z79 .899 ; Mild intellectual disability F70 ; Intermittent explosive disorder in adult F63.81 and Bipolar disorder, unspecified F31.9 [facility] [address] [id number] [address] [place] [address] [id number] Mar, Encounter for dental exam an d cleaning w/o abnormal findings Z01.20 [facility] [address] [id number] [address] [place] [address] [id number] Mar, Dental examination Z01.20 [facility] [address] [id number] [address] [place] [id number] 12 Jan, 2017 [facility] [address] [id number] [address] [place] [address] Jan, [facility] [address] [id number] [address] [place] [address] Jan, Mild intellectual disability F70 ; Bipolar disorder, unspecified F31.9 and Intermittent explosive disorder in adult F63.81 [facility] [address] [id number] [address] [place] [address] Jan, Diabetes E11.9 [facility] [address] [id number] [address] [place] [address] [id number] Dec, Encounter for dental examina tion and cleaning without abnormal findings Z01.20 [facility] [address] [id number] [address] [place] [address] Dec, Bipolar disorder, unspecifie d F31.9 ; Intermittent explosive disorder in adult F63.81 and Mild intellectual disability F70 [facility] [address] [id number] [address] [place] [address] Nov, Diabetes E11.9 [facility] [address] [id number] [address] [place] [address] Nov, [facility] [address] [id number] [address] [place] [address] Nov, Diabetes E11.9 and Colon can cer screening Z12.[address] [id number] [id number] 21 Sep, 2016 Dental examination Z01.20 [facility] [address] [id number] [address] [place] [address] [id number] 21 Sep, 2016 Encounter for dental examina tion and cleaning without abnormal findings Z01.20 [facility] [address] [id number] [address] [place] [address] 13 Sep, 2016 Bipolar disorder, unspecifie d F31.9 [facility] [address] [id number] [address] [place] [address] 12 Sep, 2016 Bipolar disorder, unspecifie d F31.9 [facility] [address] [facility] [id number] [address] [place] [address] Jul, [facility] [address] [facility] [id number] [address] [place] [address] Jul, Type 2 diabetes mellitus wit h complication E11.8 [facility] [address] [id number] [address] [place] [address] [id number] 15 Jun, 2016 Encounter for dental examina tion and cleaning without abnormal findings Z01.[address] [id number] [id number] 15 Jun, 2016 Dental examination Z01.20 [facility] [address] [facility] [id number] [address] [place] [address] 18 Apr, 2016 Sports physical Z02.5 [facility] [address] [id number] [address] [place] [address] 14 Mar, 2016 Bipolar disorder, in partial remission, most recent episode manic F31.73 and Intermittent explosive disorder in adult F63.81 [facility] [address] [id number] [address] [place] [address] 08 Mar, 2016 [facility] [address] [facility] [id number] [address] [place] [address] Mar, Diabetes E11.9 [facility] [address] [id number] [address] [place] [address] [id number] Feb, Encounter for dental examina tion and cleaning without abnormal findings Z01.20 [facility] [address] [id number] [address] [place] [address] 22 Dec, 2015 Nocturnal hypoxemia G47.34 a nd Encounter for immunization Z23 [facility] [address] [facility] [id number] [address] [place] [address] 15 Dec, 2015 [facility] [address] [facility] [id number] [address] [place] [address] Dec, [facility] [address] [facility] [id number] [address] [place] [address] Dec, Bipolar disorder, unspecifie d F31.9 [facility] [address] [id number] [address] [place] [address] [id number] Oct, Encounter for dental examina tion and cleaning without abnormal findings Z01.20 [facility] [id number] [place] [address] [id number] Oct, Dental examination Z01.20 [facility] [address] [facility] [id number] [address] [place] [address] Oct, Diabetes E11.9 [facility] [address] [facility] [id number] [address] [place] [address] Oct, Diabetes E11.9 ; Reactive ai rway disease, mild intermittent, uncomplicated J45.20 and Tobacco abuse Z72.0 [facility] [address] [facility] [id number] [address] [place] [address] Sep, Bipolar disorder, unspecifie d F31.9 and Depression F32.9 [facility] [address] [facility] [id number] [address] [place] [address] Sep, [facility] [address] [facility] [id number] [address] [place] [address] August, Tinea pedis of both feet B35 .3 and DM w/o complication type II, uncontrolled E11.65 [place] [address] [address] Jul, [place] [address] [address] Jul, [place] [address] [address] Jul, Obstructive sleep apnea G47. 33 [place] [address] [address] Jun, Diabetes E11.9 [place] [address] [address] Jun, [place] [address] [address] Jun, [place] [address] [address] Jun, Bipolar disorder, unspecifie d F31.9 and Mental retardation F79 [place] [address] [address] Apr, [place] [address] [address] Feb, Diabetes E11.9 ; Encounter f or immunization Z23 ; Cough R05 and Nicotine abuse Z72.0 [place] [address] [address] Jan, Bipolar disorder, unspecifie d F31.9 and Diabetes mellitus without mention of complication, type II or unspecified type, uncontrolled 250.02 [place] [address] [address] Jan, [place] [address] [address] Dec, Reactive airway disease 493. 90 and Enuresis 788.30 [place] [address] [id number] [address] [place] [address] Dec, [facility] [address] [facility] [id number] [address] [place] [address] Nov, [facility] [address] [facility] [id number] [address] [place] [address] Nov, [facility] [address] [facility] [id number] [address] [place] [address] Nov, Annual physical exam V70.0 ; Urinary incontinence 788.30 ; Diabetes 250.00 and Hypertension 401.9 [facility] [address] [id number] [address] [place] [address] Oct, Diabetes mellitus without me ntion of complication, type II or unspecified type, uncontrolled 250.02 [facility] [address] [facility] [id number] [address] [place] [address] Oct, Diabetes mellitus without me ntion of complication, type II or unspecified type, uncontrolled 250.02 [facility] [address] [facility] [id number] [address] [place] [address] Oct, Diabetes mellitus without me ntion of complication, type II or unspecified type, uncontrolled 250.02 [facility] [address] [facility] [id number] [address] [place] [address] Oct, [facility] [address] [facility] [id number] [address] [place] [address] Oct, [facility] [address] [facility] [id number] [address] [place] [address] Oct, Bipolar disorder, unspecifie d 296.80 [facility] [id number] [place] [address] [id number] Sep, Dental examination V72.2 [facility] [address] [facility] [id number] [address] [place] [address] August, [facility] [id number] [place] [address] [id number] August, Dental examination V72.2 [facility] [address] [id number] [address] [place] [address], [place] [address] August, [facility] [address] [id number] [address] [place] [address] 14 Jul, 2014 [facility] [address] [id number] [address] [place] [address] Jul, [facility] [address] [id number] [address] [place] [address] 17 Jun, 2014 [facility] [address] [id number] [address] [place] [address] Jun, [facility] [address] [id number] [address] [place] [address] Jun, [facility] [address] [id number] [address] [place] [address] Jun, [facility] [address] [id number] [address] [place] [address] May, [facility] [address] [id number] [address] [place] [address] May, 2014 [facility] [address] [id number] [address] [place] [address] 16 May, 2014 [facility] [address] [id number] [address] [place] [address] 16 May, 2014 [facility] [address] [id number] [address] [place] [address] May, 2014 [facility] [address] [id number] [address] [place] [address] May, 2014 [facility] [address] [id number] [address] [place] [address] 16 May, 2014 [facility] [address] [id number] [address] [place] [address] 16 May, 2014 [facility] [address] [id number] [address] [place] [address], [place] [address] May, 2014 [facility] [address] [id number] [address] [place] [address], [place] [address] May, 2014 [facility] [address] [id number] [address] [place] [address], [place] [address] May, 2014 [facility] [address] [id number] [address] [place] [address], [place] [address] May, 2014 [facility] [address] [id number] [address] [place] [address], [place] [address] May, [facility] [address] [id number] [address] [place] [address], [place] [address] May, 2014 [facility] [address] [id number] [address] [place] [address], [place] [address] May, [facility] [address] [id number] [address] [place] [address], [place] [address] Apr, [facility] [address] [id number] [address] [place] [address], [place] [address] Apr, [facility] [address] [id number] [address] [place] [address], [place] [address] Apr, [facility] [address] [id number] [address] [place] [address], [place] [address] Apr, [facility] [address] [id number] [address] [place] [address], [place] [address] Apr, [facility] [address] [id number] [address] [place] [address], [place] [address] Apr, [facility] [address] [id number] [address] [place] [address], [place] [address] Apr, [facility] [address] [id number] [address] [place] [address], [place] [address] Apr, [facility] [address] [id number] [address] [place] [address], [place] [address] Apr, [facility] [address] [id number] [address] [place] [address], [place] [address] Apr, [facility] [address] [id number] [address] [place] [address], [place] [address] Apr, [facility] [address] [id number] [address] [place] [address], [place] [address] Apr, [facility] [address] [id number] [address] [place] [address], [place] [address] Mar, [facility] [address] [id number] [address] [place] [address], [place] [address] Mar, [facility] [address] [id number] [address] [place] [address], [place] [address] Mar, [facility] [address] [id number] [address] [place] [address], [place] [address] Mar, [facility] [address] [id number] [address] [place] [address], [place] [address] Mar, [facility] [address] [id number] [address] [place] [address], [place] [address] Mar, [facility] [address] [id number] [address] [place] [address], [place] [address] 13 Feb, 2014 [facility] [address] [id number] [address] [place] [address], [place] [address] Feb, [facility] [address] [id number] [address] [place] [address], [place] [address] Feb, [facility] [address] [id number] [address] [place] [address], [place] [address] 13 Feb, 2014 [facility] [address] [id number] [address] [place] [address], [place] [address] 14 Jan, 2014 [facility] [address] [id number] [address] [place] [address], [place] [address] 14 Jan, 2014 [facility] [address] [id number] [address] [place] [address], [place] [address] 14 Jan, 2014 [facility] [address] [id number] [address] [place] [address], [place] [address] 14 Jan, 2014 [facility] [address] [id number] [address] [place] [address], [place] [address] Dec, [facility] [address] [id number] [address] [place] [address], [place] [address] Dec, [facility] [address] [id number] [address] [place] [address], [place] [address] Dec, [facility] [address] [id number] [address] [place] [address], [place] [address] Dec, [facility] [address] [id number] [address] [place] [address], [place] [address] Nov, [facility] [address] [id number] [address] [place] [address], [place] [address] Nov, [facility] [address] [id number] [address] [place] [address], [place] [address] Nov, [facility] [address] [id number] [address] [place] [address], [place] [address] Nov, [facility] [address] [id number] [address] [place] [address], [place] [address] Nov, [facility] [address] [id number] [address] [place] [address], [place] [address] Nov, [facility] [address] [id number] [address] [place] [address], [place] [address] Nov, [facility] [address] [id number] [address] [place], [place] [address], [place] [address] Oct, [facility] [address] [id number] [address] [place] [address], [place] [address] Oct, [facility] [address] [id number] [address] [place] [address], [place] [address] Oct, [facility] [address] [id number] [address] [place] [address], [place] [address] Oct, [facility] [address] [id number] [address] [place] [address], [place] [address] Oct, [facility] [address] [id number] [address] [place] [address], [place] [address] Oct, [facility] [address] [id number] [address] [place] [address], [place] [address] Oct, [facility] [address] [id number] [address] [place] [address], [place] [address] Sep, [facility] [address] [id number] [address] [place] [address], [place] [address] Sep, [facility] [address] [id number] [address] [place] [address], [place] [address] Sep, [facility] [address] [id number] [address] [place] [address], [place] [address] Sep, [facility] [address] [id number] [address] [place] [address], [place] [address] Sep, [facility] [address] [id number] [address] [place] [address], [place] [address] Jul, [facility] [address] [id number] [address] [place] [address], [place] [address] Jul, [facility] [address] [id number] [address] [place] [address], [place] [address] Jul, [facility] [address] [id number] [address] [place] [address], [place] [address] Jul, [facility] [address] [id number] [address] [place] [address], [place] [address] Jul, [facility] [address] [id number] [address] [place] [address], [place] [address] Jul, [facility] [address] [id number] [facility] [place] [address] Jul, [facility] [address] [id number] [facility] [place] [address] Jul, [facility] [address] [id number] [facility] [place] [address] Jul, [facility] [address] [id number] [address] [place] [address], [place] [address] Jul, [facility] [address] [id number] [address] [place] [address], [place] [address] Jul, [facility] [address] [id number] [address] [place] [address], [place] [address] Jul, [facility] [address] [id number] [address] [place] [address], [place] [address] Jun, [facility] [address] [id number] [address] [place] [address], [place] [address] Jun, [facility] [address] [id number] [address] [place] [address], [place] [address] Jun, [facility] [address] [id number] [address] [place] [address], [place] [address] Jun, [facility] [address] [id number] [address] [place] [address], [place] [address] Jun, [facility] [address] [id number] [address] [place] [address], [place] [address] Jun, [facility] [address] [id number] [address] [place] [address], [place] [address] Jun, [facility] [address] [id number] [address] [place] [address], [place] [address] Jun, [facility] [address] [id number] [address] [place] [address], [place] [address] May, [facility] [address] [id number] [address] [place] [address], [place] [address] May, [facility] [address] [id number] [address] [place] [address], [place] [address] May, [facility] [address] [id number] [address] [place] [address], [place] [address] May, [facility] [address] [id number] [address] [place] [address], [place] [address] May, [facility] [address] [id number] [address] [place] [address], [place] [address] May, [facility] [address] [id number] [address] [place] [address], [place] [address] May, [facility] [address] [id number] [address] [place] [address], [place] [address] May, [facility] [address] [id number] [address] [place] [address], [place] [address] Apr, [facility] [address] [id number] [address] [place] [address], [place] [address] Apr, [facility] [address] [id number] [address] [place] [address], [place] [address] Apr, [facility] [address] [id number] [address] [place] [address], [place] [address] Apr, [facility] [address] [id number] [address] [place] [address], [place] [address] Mar, [facility] [address] [id number] [address] [place] [address], [place] [address] Mar, [facility] [address] [id number] [address] [place] [address], [place] [address] Mar, [facility] [address] [id number] [address] [place] [address], [place] [address] Feb, [facility] [address] [id number] [address] [place] [address], [place] [address] Feb, [facility] [address] [id number] [address] [place] [address], [place] [address] Feb, [facility] [address] [id number] [address] [place] [address], [place] [address] Feb, [facility] [address] [id number] [address] [place] [address], [place] [address] Feb, [facility] [address] [id number] [address] [place] [address], [place] [address] Feb, [facility] [address] [id number] [address] [place] [address], [place] [address] Jan, [facility] [address] [id number] [address] [place] [address], [place] [address] Jan, [facility] [address] [id number] [address] [place] [address], [place] [address] Jan, [facility] [address] [id number] [address] [place] [address], [place] [address] Jan, [facility] [address] [id number] [address] [place] [address], [place] [address] Jan, [facility] [address] [id number] [address] [place] [address], [place] [address] Jan, [facility] [address] [id number] [address] [place] [address], [place] [address] Jan, [facility] [address] [id number] [address] [place] [address], [place] [address] 25 Dec, 2012 [facility] [address] [id number] [address] [place] [address], [place] [address] 16 Dec, 2012 [facility] [address] [id number] [address] [place] [address], [place] [address] 10 Dec, 2012 [facility] [address] [id number] [address] [place] [address], [place] [address] 05 Dec, 2012 [facility] [address] [id number] [address] [place] [address], [place] [address] Nov, [facility] [address] [id number] [address] [place] [address], [place] [address] Nov, [facility] [address] [id number] [address] [place] [address], [place] [address] Nov, [facility] [address] [id number] [address] [place] [address], [place] [address] Nov, [facility] [address] [id number] [address] [place] [address], [place] [address] Nov, [facility] [address] [id number] [address] [place] [address], [place] [address] Nov, [facility] [address] [id number] [address] [place] [address], [place] [address] Nov, [facility] [address] [id number] [address] [place] [address], [place] [address] Oct, [facility] [address] [id number] [address] [place] [address], [place] [address] Oct, [facility] [address] [id number] [address] [place] [address], [place] [address] Oct, [facility] [address] [id number] [address] [place] [address], [place] [address] Oct, [facility] [address] [id number] [address] [place] [address], [place] [address] Oct, [facility] [address] [id number] [address] [place] [address], [place] [address] Oct, [facility] [address] [id number] [address] [place] [address], [place] [address] Oct, [facility] [address] [id number] [address] [place] [address], [place] [address] Oct, [facility] [address] [id number] [address] [place] [address], [place] [address] Sep, Suleiman PEREZ [address] [facility] [address] [id number] [place] [id number] 30 Aug, 2012 [facility] [address] [id number] [address] [place] [address], [place] [address] August, [facility] [address] [id number] [facility] [place] [address] Jul, [facility] [address] [id number] [address] [place] [address], [place] [address] Jul, [facility] [address] [id number] [address] [place] [address], [place] [address] Jul, [facility] [address] [id number] [address] [place] [address], [place] [address] Jul, [facility] [address] [id number] [address] [place] [address], [place] [address] Jul, [facility] [address] [id number] [address] [place] [address], [place] [address] Jul, [facility] [address] [id number] [address] [place] [address], [place] [address] 16 Jul, 2012 [facility] [address] [id number] [address] [place] [address], [place] [address] Jun, [facility] [address] [id number] [address] [place] [address], [place] [address] Jun, [facility] [address] [id number] [address] [place] [address], [place] [address] Jun, [facility] [address] [id number] [address] [place] [address], [place] [address] Jun, [facility] [address] [id number] [address] [place] [address], [place] [address] Jun, [facility] [address] [id number] [address] [place] [address], [place] [address] May, [facility] [address] [id number] [address] [place] [address], [place] [address] 18 May, 2012 [facility] [address] [id number] [address] [place] [address], [place] [address] 04 May, 2012 [facility] [address] [id number] [address] [place] [address], [place] [address] 15 Apr, 2012 [facility] [address] [id number] [address] [place] [address], [place] [address] 14 Apr, 2012 [facility] [address] [id number] [address] [place] [address], [place] [address] 07 Apr, 2012 [facility] [address] [id number] [address] [place] [address], [place] [address] Mar, [facility] [address] [id number] [address] [place] [address], [place] [address] 31 Mar, 2012 [facility] [address] [id number] [address] [place] [address], [place] [address] Mar, [facility] [address] [id number] [address] [place] [address], [place] [address] Mar, [facility] [address] [id number] [address] [place] [address], [place] [address] Mar, [facility] [address] [id number] [address] [place] [address] Mar, [facility] [address] [id number] [address] [place] [address] Feb, [facility] [address] [id number] [address] [place] [address] Feb, [facility] [address] [id number] [address] [place] [address], [place] [address] Jan, [facility] [address] [id number] [address] [place] [address], [place] [address] Jan, [facility] [address] [id number] [address] [place] [address], [place] [address] 25 Dec, 2011 [facility] [address] [id number] [address] [place] [address] Nov, [facility] [address] [id number] [address] [place] [address], [place] [address] Nov, [facility] [address] [id number] [address] [place] [address], [place] [address] Nov, [facility] [address] [id number] [address] [place] [address], [place] [address] Nov, [facility] [address] [id number] [address] [place] [address], [place] [address] Oct, [facility] [address] [id number] [address] [place] [address], [place] [address] Oct, [facility] [address] [id number] [address] [place] [address], [place] [address] Oct, [facility] [address] [id number] [address] [place] [address], [place] [address] Sep, [facility] [address] [id number] [address] [place] [address], [place] [address] Sep, [facility] [address] [id number] [address] [place] [address], [place] [address] Sep, [facility] [address] [id number] [address] [place] [address], [place] [address] August, [facility] [address] [id number] [address] [place] [address], [place] [address] August, [facility] [address] [id number] [address] [place] [address], [place] [address] Jul, [facility] [address] [id number] [address] [place] [address], [place] [address] 24 Jul, 2011 [facility] [address] [id number] [address] [place] [address], [place] [address] 17 Jul, 2011 [facility] [address] [id number] [address] [place] [address], [place] [address] Jul, [facility] [address] [id number] [address] [place] [address], [place] [address] Jun, [facility] [address] [id number] [address] [place] [address], [place] [address] 06 May, 2011 [facility] [address] [id number] [address] [place] [address], [place] [address] Apr, [facility] [address] [id number] [address] [place] [address], [place] [address] Apr, [facility] [address] [id number] [address] [place] [address], [place] [address] Apr, [facility] [address] [id number] [address] [place] [address], [place] [address] Apr, [facility] [address] [id number] [address] [place] [address], [place] [address] Apr, [facility] [address] [id number] [address] [place] [address], [place] [address] Apr, [facility] [address] [id number] [address] [place] [address], [place] [address] Mar, [facility] [address] [id number] [address] [place] [address], [place] [address] Mar, [facility] [address] [id number] [address] [place] [address], [place] [address] Feb, [facility] [address] [id number] [address] [place] [address], [place] [address] Feb, [facility] [address] [id number] [address] [place] [address], [place] [address] 17 Feb, 2011 [facility] [address] [id number] [address] [place] [address], [place] [address] 09 Feb, 2011 [facility] [address] [id number] [address] [place] [address], [place] [address] 20 Jan, 2011 [facility] [address] [id number] [address] [place] [address] 18 Jan, 2011 [facility] [address] [id number] [address] [place] [address], [place] [address] 18 Jan, 2011 [facility] [address] [id number] [address] [place] [address], [place] [address] 18 Jan, 2011 [facility] [address] [id number] [address] [place] [address], [place] [address] 17 Nov, 2010 [facility] [address] [id number] [address] [place] [address], [place] [address] Mar, [facility] [address] [id number] [address] [place] [address], [place] [address] Mar, [facility] [address] [id number] [address] [place] [address] 30 Feb, 2010 [facility] [address] [id number] [address] [place] [address], [place] [address] Feb, [facility] [address] [id number] [address] [place] [address] Jan, [facility] [address] [id number] [address] [place] [address], [place] [address] Jan, [facility] [address] [id number] [address] [place] [address] Sep, [facility] [address] [id number] [address] [place] [address] 16 May, 2009 [facility] [address] [id number] [address] [place] [address] Apr, [facility] [address] [id number] [address] [place] [address], [place] [address] Mar, [facility] [address] [id number] [address] [place] [address] 15 Feb, 2009 [facility] [address] [id number] [address] [place] [address] Feb, [facility] [address] [id number] [address] [place] [address] 10 Feb, 2009 [facility] [address] [facility] [id number] [address] [place] [address] Jan, [facility] [address] [facility] [id number] [address] [place] [address] Jan, [facility] [address] [facility] [id number] [address] [place] [phone] Jan, [facility] [address] [facility] [id number] [address] [place] [phone] Jan, [facility] [address] [facility] [id number] [address] [place] [phone] August, IMMUNIZATIONS No Known Immunizations SOCIAL HISTORY [...] 7 Hospitalization History surgery Hospitalization History [facility], inpa tient treatment few times for BH
--- OUTSIDE RECORDS SUMMARY | 2019-09-29 10:49 | XMS REPORT ---
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 Active 83827051 Problem Open-angle glaucoma of both eyes, unspecified glaucoma stage, unspecified open-angle glaucoma type H40.10X0 Acti ve 86030442 Problem Adjustment disorder, unspecified type F43.20 Active 06083556 Problem Obstructive sleep apnea G47.33 Active 98028885 Problem Hypertensive retinopathy of both eyes H35.033 Active 8998597 Problem Type 2 diabetes mellitus with complication E11.8 Active 58140579 Problem Essential hypertension I10 Active 22102295 Problem Diabetes E11.9 Active 64162964 Problem Bipolar disorder, in partial remission, most rec ent episode manic F31.73 Active 86458716 Problem Intermittent explosive disorder in adult F63.81 Active 11833464 Problem Other diabetic neurological complication associated with type 2 diabetes mellitus E11.49 Active 472113906 Problem Depression F32.9 Active 83000510 Problem Neuropathy G62.9 Active 300312564 Problem Intermittent explosive disorder F63.81 Active 93455776 Problem Bipolar disorder, unspecified F31.9 Active 19643654 Problem Mild intellectual disability F70 A ctive 10532378 Problem Reactive airway disease, mild intermittent, uncomplicated J45.20 Active 342124280 Problem Gastroesophageal reflux disease without esophagitis K21.9 Active [id number] ALLERGIES No Information ENCOUNTERS Encounter Location Date Diagnosis [facility] [address] [facility] [id number] [address] [place] [address] Dec, [facility] [address] [facility] [id number] [address] [place] [phone] Oct, OUTREACH [facility] [address] [place] [id number] [place] [address] Oct, Oral health maintenance stat us requiring routine preventive dental care K08.9 [facility] [address] [facility] [id number] [address] [place] [address] August, Intermittent explosive disor salvatore in adult F63.81 ; Bipolar disorder, unspecified F31.9 and Mild intellectual disability F70 [facility] [address] [facility] [id number] [address] [place] [address] [id number] August, Dental caries K02.9 [facility] [address] [facility] [id number] [address] [place] [address] Jul, Onychomycosis B35.1 ; Other diabetic neurological complication associated with type 2 diabetes mellitus E11.49 and Tinea pedis of both feet B35.3 [facility] [address] [facility] [id number] [address] [place] [address] [id number] Jul, Caries K02.9 [facility] [address] [facility] [id number] [address] [place] [phone] Jul, Type 2 diabetes mellitus wit h complication E11.8 ; Tobacco abuse Z72.0 and Bipolar disorder, unspecified F31.9 [facility] [address] [facility] [id number] [address] [place] [phone] Jun, [facility] [address] [facility] [id number] [address] [place] [address] [id number] Jun, Dental examination Z01.20 an d Oral health maintenance status requiring routine preventive dental care K08.9 [facility] [address] [facility] [id number] [address] [place] [phone] May, Bilateral impacted cerumen H 61.23 [facility] [address] [facility] [id number] [address] [place] [address] Apr, Bipolar disorder, unspecifie d F31.9 ; Intermittent explosive disorder in adult F63.81 ; Type 2 diabetes mellitus with complication E11.8 ; Tobacco abuse Z72.0 and Colon cancer screening Z12.11 [facility] [address] [address] Apr, Onychomycosis B35.1 and Othe r diabetic neurological complication associated with type 2 diabetes mellitus E11.49 [facility] [address] [place] [id number] [address] [place] [address] Apr, Intermittent explosive disor salvatore in adult F63.81 ; Bipolar disorder, unspecified F31.9 and Mild intellectual disability F70 [place] [address] [address] Mar, Diabetes E11.9 [facility] [address] [address] Jan, Encounter for immunization Z 23 [place] [address] [address] Jan, Tinea pedis of both feet B35 .3 ; Other diabetic neurological complication associated with type 2 diabetes mellitus E11.49 and Onychomycosis B35.1 [place] [address] [place] [id number] [address] [place] [address] Nov, Type 2 diabetes mellitus wit h complication E11.8 [place] [address] [place] [id number] [address] [place] [address] Nov, [facility] [address] [address] Oct, Intermittent explosive disor salvatore in adult F63.81 ; Bipolar disorder, unspecified F31.9 and Mild intellectual disability F70 [facility] [address] [place] [id number] [address] [place] [address] Oct, [facility] [address] [id number] [address] [place] [address] [id number] Oct, Dental examination Z01.20 [facility] [address] [place] [id number] [address] [place] [phone] Oct, Onychomycosis B35.1 and Othe r diabetic neurological complication associated with type 2 diabetes mellitus E11.49 [place] [address] [place] [id number] [address] [place] [address] Sep, Type 2 diabetes mellitus wit h complication E11.8 and Colon cancer screening Z12.11 [place] [address] [place] [id number] [address] [place] [phone] Sep, Type 2 diabetes mellitus wit h complication E11.8 ; Colon cancer screening Z12.11 and Neuropathy G62.9 [place] [address] [place] [id number] [address] [place] [address] August, Diabetes E11.9 [facility] [address] [place] [id number] [address] [place] [address] [id number] Jul, Dental examination Z01.20 [place] [address] [place] [id number] [address] [place] [address] May, Mild intellectual disability F70 [place] [address] [address] May, Mild intellectual disability F70 ; High risk medication use Z79.899 ; Intermittent explosive disorder in adult F63.81 and Bipolar disorder, unspecified F31.9 [place] [address] [place] [id number] [address] [place] [phone] May, [place] [address] [place] [id number] [address] [place] [phone] May, [place] [address] [place] [id number] [address] [place] [phone] Apr, Type 2 diabetes mellitus wit h complication E11.8 ; Mild intellectual disability F70 ; Gastroesophageal reflux disease without esophagitis K21.9 ; Reactive airway disease, mild intermittent, uncomplicated J45.20 and Tobacco abuse Z72.0 [place] [address] [place] [id number] [address] [place] [address] Apr, High risk medication use Z79 .899 ; Mild intellectual disability F70 ; Intermittent explosive disorder in adult F63.81 and Bipolar disorder, unspecified F31.9 [facility] [address] [id number] [address] [place] [address] [phone] Mar, Encounter for dental exam an d cleaning w/o abnormal findings Z01.20 [facility] [address] [id number] [address] [place] [address] [phone] Mar, Dental examination Z01.20 [facility] [address] [id number] [address] [place] [phone] 12 Jan, 2017 [facility] [address] [id number] [address] [place] [phone] Jan, [facility] [address] [id number] [address] [place] [phone] Jan, Mild intellectual disability F70 ; Bipolar disorder, unspecified F31.9 and Intermittent explosive disorder in adult F63.81 [facility] [address] [id number] [address] [place] [phone] Jan, Diabetes E11.9 [facility] [address] [id number] [address] [place] [address] [phone] Dec, Encounter for dental examina tion and cleaning without abnormal findings Z01.20 [facility] [address] [id number] [address] [place] [phone] Dec, Bipolar disorder, unspecifie d F31.9 ; Intermittent explosive disorder in adult F63.81 and Mild intellectual disability F70 [facility] [address] [id number] [address] [place] [phone] Nov, Diabetes E11.9 [facility] [address] [id number] [address] [place] [phone] Nov, [facility] [address] [id number] [address] [place] [phone] Nov, Diabetes E11.9 and Colon can cer screening Z12.[address] [id number] [id number] 21 Sep, 2016 Dental examination Z01.20 [facility] [address] [id number] [address] [place] [address] [id number] 21 Sep, 2016 Encounter for dental examina tion and cleaning without abnormal findings Z01.20 [facility] [address] [id number] [address] [place] [phone] 13 Sep, 2016 Bipolar disorder, unspecifie d F31.9 [facility] [address] [id number] [address] [place] [phone] 12 Sep, 2016 Bipolar disorder, unspecifie d F31.9 [facility] [address] [facility] [id number] [address] [place] [phone] Jul, [facility] [address] [facility] [id number] [address] [place] [phone] Jul, Type 2 diabetes mellitus wit h complication E11.8 [facility] [address] [id number] [address] [place] [address] [id number] 15 Jun, 2016 Encounter for dental examina tion and cleaning without abnormal findings Z01.[address] [id number] [id number] 15 Jun, 2016 Dental examination Z01.20 [facility] [address] [facility] [id number] [address] [place] [phone] 18 Apr, 2016 Sports physical Z02.5 [facility] [address] [id number] [address] [place] [phone] 14 Mar, 2016 Bipolar disorder, in partial remission, most recent episode manic F31.73 and Intermittent explosive disorder in adult F63.81 [facility] [address] [id number] [address] [place] [phone] 08 Mar, 2016 [facility] [address] [facility] [id number] [address] [place] [phone] Mar, Diabetes E11.9 [facility] [address] [id number] [address] [place] [address] [phone] Feb, Encounter for dental examina tion and cleaning without abnormal findings Z01.20 [facility] [address] [id number] [address] [place] [phone] 22 Dec, 2015 Nocturnal hypoxemia G47.34 a nd Encounter for immunization Z23 [facility] [address] [facility] [id number] [address] [place] [phone] 15 Dec, 2015 [facility] [address] [facility] [id number] [address] [place] [phone] Dec, [facility] [address] [facility] [id number] [address] [place] [phone] Dec, Bipolar disorder, unspecifie d F31.9 [facility] [address] [id number] [address] [place] [address] [id number] Oct, Encounter for dental examina tion and cleaning without abnormal findings Z01.[address] [facility] [place] [id number] [place] [address] [id number] Oct, Dental examination Z01.20 [facility] [address] [facility] [id number] [address] [place] [phone] Oct, Diabetes E11.9 [facility] [address] [facility] [id number] [address] [place] [phone] Oct, Diabetes E11.9 ; Reactive ai rway disease, mild intermittent, uncomplicated J45.20 and Tobacco abuse Z72.0 [facility] [address] [facility] [id number] [address] [place] [phone] Sep, Bipolar disorder, unspecifie d F31.9 and Depression F32.9 [facility] [address] [facility] [id number] [address] [place] [phone] Sep, [facility] [address] [facility] [id number] [address] [place] [phone] August, Tinea pedis of both feet B35 .3 and DM w/o complication type II, uncontrolled E11.65 [place] [address] [address] Jul, [place] [address] [phone] Jul, [place] [address] [address] Jul, Obstructive sleep apnea G47. 33 [place] [address] [id number] Jun, Diabetes E11.9 [place] [address] [id number] Jun, [place] [address] [id number] Jun, [place] [address] [phone] Jun, Bipolar disorder, unspecifie d F31.9 and Mental retardation F79 [place] [address] [phone] Apr, [place] [address] [phone] Feb, Diabetes E11.9 ; Encounter f or immunization Z23 ; Cough R05 and Nicotine abuse Z72.0 [place] [address] [address] Jan, Bipolar disorder, unspecifie d F31.9 and Diabetes mellitus without mention of complication, type II or unspecified type, uncontrolled 250.02 [place] [address] [address] Jan, [place] [address] [address] Dec, Reactive airway disease 493. 90 and Enuresis 788.30 [place] [address] [id number] [address] [place] [phone] Dec, [facility] [address] [facility] [id number] [address] [place] [phone] Nov, [facility] [address] [facility] [id number] [address] [place] [phone] Nov, [facility] [address] [facility] [id number] [address] [place] [phone] Nov, Annual physical exam V70.0 ; Urinary incontinence 788.30 ; Diabetes 250.00 and Hypertension 401.9 [facility] [address] [id number] [address] [place] [phone] Oct, Diabetes mellitus without me ntion of complication, type II or unspecified type, uncontrolled 250.02 [facility] [address] [facility] [id number] [address] [place] [phone] Oct, Diabetes mellitus without me ntion of complication, type II or unspecified type, uncontrolled 250.02 [facility] [address] [facility] [id number] [address] [place] [phone] Oct, Diabetes mellitus without me ntion of complication, type II or unspecified type, uncontrolled 250.02 [facility] [address] [facility] [id number] [address] [place] [phone] Oct, [facility] [address] [facility] [id number] [address] [place] [phone] Oct, [facility] [address] [facility] [id number] [address] [place] [address] Oct, Bipolar disorder, unspecifie d 296.80 [facility] [id number] [place] [address] [id number] Sep, Dental examination V72.2 [facility] [address] [facility] [id number] [address] [place] [phone] August, [facility] [address] [id number] [place] [address] [id number] August, Dental examination V72.2 [facility] [address] [id number] [address] [place] [address], [place] [address] August, [facility] [address] [id number] [address] [place] [phone] 14 Jul, 2014 [facility] [address] [id number] [address] [place] [phone] Jul, [facility] [address] [id number] [address] [place] [phone] 17 Jun, 2014 [facility] [address] [id number] [address] [place] [phone] Jun, [facility] [address] [id number] [address] [place] [phone] Jun, [facility] [address] [id number] [address] [place] [phone] Jun, [facility] [address] [id number] [address] [place] [phone] May, [facility] [address] [id number] [address] [place] [phone] May, 2014 [facility] [address] [id number] [address] [place] [phone] 16 May, 2014 [facility] [address] [id number] [address] [place] [phone] 16 May, 2014 [facility] [address] [id number] [address] [place] [phone] May, 2014 [facility] [address] [id number] [address] [place] [phone] May, 2014 [facility] [address] [id number] [address] [place] [phone] 16 May, 2014 [facility] [address] [id number] [address] [place] [phone] 16 May, 2014 [facility] [address] [id number] [address] [place] [address], [place] [address] May, 2014 [facility] [address] [id number] [address] [place] [address], [place] [address] May, 2014 [facility] [address] [id number] [address] [place] [address], [place] [address] May, 2014 [facility] [address] [id number] [address] [place] [address], [place] [address] May, 2014 [facility] [address] [id number] [address] [place] [address], [place] [address] May, [facility] [address] [id number] [address] [place] [address], [place] [address] May, 2014 [facility] [address] [id number] [address] [place] [address], [place] [address] May, [facility] [address] [id number] [address] [place] [address], [place] [address] Apr, [facility] [address] [id number] [address] [place] [address], [place] [address] Apr, [facility] [address] [id number] [address] [place] [address], [place] [address] Apr, [facility] [address] [id number] [address] [place] [address], [place] [address] Apr, [facility] [address] [id number] [address] [place] [address], [place] [address] Apr, [facility] [address] [id number] [address] [place] [address], [place] [address] Apr, [facility] [address] [id number] [address] [place] [address], [place] [address] Apr, [facility] [address] [id number] [address] [place] [address], [place] [address] Apr, [facility] [address] [id number] [address] [place] [address], [place] [address] Apr, [facility] [address] [id number] [address] [place] [address], [place] [address] Apr, [facility] [address] [id number] [address] [place] [address], [place] [address] Apr, [facility] [address] [id number] [address] [place] [address], [place] [address] Apr, [facility] [address] [id number] [address] [place] [address], [place] [address] Mar, [facility] [address] [id number] [address] [place] [address], [place] [address] Mar, [facility] [address] [id number] [address] [place] [address], [place] [address] Mar, [facility] [address] [id number] [address] [place] [address], [place] [address] Mar, [facility] [address] [id number] [address] [place] [address], [place] [address] Mar, [facility] [address] [id number] [address] [place] [address], [place] [address] Mar, [facility] [address] [id number] [address] [place] [address], [place] [address] 13 Feb, 2014 [facility] [address] [id number] [address] [place] [address], [place] [address] Feb, [facility] [address] [id number] [address] [place] [address], [place] [address] Feb, [facility] [address] [id number] [address] [place] [address], [place] [address] 13 Feb, 2014 [facility] [address] [id number] [address] [place] [address], [place] [address] 14 Jan, 2014 [facility] [address] [id number] [address] [place] [address], [place] [address] 14 Jan, 2014 [facility] [address] [id number] [address] [place] [address], [place] [address] 14 Jan, 2014 [facility] [address] [id number] [address] [place] [address], [place] [address] 14 Jan, 2014 [facility] [address] [id number] [address] [place] [address], [place] [address] Dec, [facility] [address] [id number] [address] [place] [address], [place] [address] Dec, [facility] [address] [id number] [address] [place] [address], [place] [address] Dec, [facility] [address] [id number] [address] [place] [address], [place] [address] Dec, [facility] [address] [id number] [address] [place] [address], [place] [address] Nov, [facility] [address] [id number] [address] [place] [address], [place] [address] Nov, [facility] [address] [id number] [address] [place] [address], [place] [address] Nov, [facility] [address] [id number] [address] [place] [address], [place] [address] Nov, [facility] [address] [id number] [address] [place] [address], [place] [address] Nov, [facility] [address] [id number] [address] [place] [address], [place] [address] Nov, [facility] [address] [id number] [address] [place] [address], [place] [address] Nov, [facility] [facility] [address] [id number] [address] [place] [address], [place] [address] Oct, [facility] [address] [id number] [address] [place] [address], [place] [address] Oct, [facility] [address] [id number] [address] [place] [address], [place] [address] Oct, [facility] [address] [id number] [address] [place] [address], [place] [address] Oct, [facility] [address] [id number] [address] [place] [address], [place] [address] Oct, [facility] [address] [id number] [address] [place] [address], [place] [address] Oct, [facility] [address] [id number] [address] [place] [address], [place] [address] Oct, [facility] [address] [id number] [address] [place] [address], [place] [address] Sep, [facility] [address] [id number] [address] [place] [address], [place] [address] Sep, [facility] [address] [id number] [address] [place] [address], [place] [address] Sep, [facility] [address] [id number] [address] [place] [address], [place] [address] Sep, [facility] [address] [id number] [address] [place] [address], [place] [address] Sep, [facility] [address] [id number] [address] [place] [address], [place] [address] Jul, [facility] [address] [id number] [address] [place] [address], [place] [address] Jul, [facility] [address] [id number] [address] [place] [address], [place] [address] Jul, [facility] [address] [id number] [address] [place] [address], [place] [address] Jul, [facility] [address] [id number] [address] [place] [address], [place] [address] Jul, [facility] [address] [id number] [address] [place] [address], [place] [address] Jul, [facility] [address] [id number] [facility] [place] [address] Jul, [facility] [address] [id number] [facility] [place] [address] Jul, [facility] [address] [id number] [facility] [place] [address] Jul, [facility] [address] [id number] [address] [place] [address], [place] [address] Jul, [facility] [address] [id number] [address] [place] [address], [place] [address] Jul, [facility] [address] [id number] [address] [place] [address], [place] [address] Jul, [facility] [address] [id number] [address] [place] [address], [place] [address] Jun, [facility] [address] [id number] [address] [place] [address], [place] [address] Jun, [facility] [address] [id number] [address] [place] [address], [place] [address] Jun, [facility] [address] [id number] [address] [place] [address], [place] [address] Jun, [facility] [address] [id number] [address] [place] [address], [place] [address] Jun, [facility] [address] [id number] [address] [place] [address], [place] [address] Jun, [facility] [address] [id number] [address] [place] [address], [place] [address] Jun, [facility] [address] [id number] [address] [place] [address], [place] [address] Jun, [facility] [address] [id number] [address] [place] [address], [place] [address] May, [facility] [address] [id number] [address] [place] [address], [place] [address] May, [facility] [address] [id number] [address] [place] [address], [place] [address] May, [facility] [address] [id number] [address] [place] [address], [place] [address] May, [facility] [address] [id number] [address] [place] [address], [place] [address] May, [facility] [address] [id number] [address] [place] [address], [place] [address] May, [facility] [address] [id number] [address] [place] [address], [place] [address] May, [facility] [address] [id number] [address] [place] [address], [place] [address] May, [facility] [address] [id number] [address] [place] [address], [place] [address] Apr, [facility] [address] [id number] [address] [place] [address], [place] [address] Apr, [facility] [address] [id number] [address] [place] [address], [place] [address] Apr, [facility] [address] [id number] [address] [place] [address], [place] [address] Apr, [facility] [address] [id number] [address] [place] [address], [place] [address] Mar, [facility] [address] [id number] [address] [place] [address], [place] [address] Mar, [facility] [address] [id number] [address] [place] [address], [place] [address] Mar, [facility] [address] [id number] [address] [place] [address], [place] [address] Feb, [facility] [address] [id number] [address] [place] [address], [place] [address] Feb, [facility] [address] [id number] [address] [place] [address], [place] [address] Feb, [facility] [address] [id number] [address] [place] [address], [place] [address] Feb, [facility] [address] [id number] [address] [place] [address], [place] [address] Feb, [facility] [address] [id number] [address] [place] [address], [place] [address] Feb, [facility] [address] [id number] [address] [place] [address], [place] [address] Jan, [facility] [address] [id number] [address] [place] [address], [place] [address] Jan, [facility] [address] [id number] [address] [place] [address], [place] [address] Jan, [facility] [address] [id number] [address] [place] [address], [place] [address] Jan, [facility] [address] [id number] [address] [place] [address], [place] [address] Jan, [facility] [address] [id number] [address] [place] [address], [place] [address] Jan, [facility] [address] [id number] [address] [place] [address], [place] [address] Jan, [facility] [address] [id number] [address] [place] [address], [place] [address] 25 Dec, 2012 [facility] [address] [id number] [address] [place] [address], [place] [address] 16 Dec, 2012 [facility] [address] [id number] [address] [place] [address], [place] [address] 10 Dec, 2012 [facility] [address] [id number] [address] [place] [address], [place] [address] 05 Dec, 2012 [facility] [address] [id number] [address] [place] [address], [place] [address] Nov, [facility] [address] [id number] [address] [place] [address], [place] [address] Nov, [facility] [address] [id number] [address] [place] [address], [place] [address] Nov, [facility] [address] [id number] [address] [place] [address], [place] [address] Nov, [facility] [address] [id number] [address] [place] [address], [place] [address] Nov, [facility] [address] [id number] [address] [place] [address], [place] [address] Nov, [facility] [address] [id number] [address] [place] [address], [place] [address] Nov, [facility] [address] [id number] [address] [place] [address], [place] [address] Oct, [facility] [address] [id number] [address] [place] [address], [place] [address] Oct, [facility] [address] [id number] [address] [place] [address], [place] [address] Oct, [facility] [address] [id number] [address] [place] [address], [place] [address] Oct, [facility] [address] [id number] [address] [place] [address], [place] [address] Oct, [facility] [address] [id number] [address] [place] [address], [place] [address] Oct, [facility] [address] [id number] [address] [place] [address], [place] [address] Oct, [facility] [address] [id number] [address] [place] [address], [place] [address] Oct, [facility] [address] [id number] [address] [place] [address], [place] [address] Sep, Suleiman PEREZ [address] [id number] [place] [id number] 30 Aug, 2012 [facility] [address] [id number] [address] [place] [address], [place] [address] August, [facility] [address] [id number] [facility] [address] Jul, [facility] [address] [id number] [address] [place] [address], [place] [address] Jul, [facility] [address] [id number] [address] [place] [address], [place] [address] Jul, [facility] [address] [id number] [address] [place] [address], [place] [address] Jul, [facility] [address] [id number] [address] [place] [address], [place] [address] Jul, [facility] [address] [id number] [address] [place] [address], [place] [address] Jul, [facility] [address] [id number] [address] [place] [address], [place] [address] 16 Jul, 2012 [facility] [address] [id number] [address] [place] [address], [place] [address] Jun, [facility] [address] [id number] [address] [place] [address], [place] [address] Jun, [facility] [address] [id number] [address] [place] [address], [place] [address] Jun, [facility] [address] [id number] [address] [place] [address], [place] [address] Jun, [facility] [address] [id number] [address] [place] [address], [place] [address] Jun, [facility] [address] [id number] [address] [place] [address], [place] [address] May, [facility] [address] [id number] [address] [place] [address], [place] [address] 18 May, 2012 [facility] [address] [id number] [address] [place] [address], [place] [address] 04 May, 2012 [facility] [address] [id number] [address] [place] [address], [place] [address] 15 Apr, 2012 [facility] [address] [id number] [address] [place] [address], [place] [address] 14 Apr, 2012 [facility] [address] [id number] [address] [place] [address], [place] [address] 07 Apr, 2012 [facility] [address] [id number] [address] [place] [address], [place] [address] Mar, [facility] [address] [id number] [address] [place] [address], [place] [address] 31 Mar, 2012 [facility] [address] [id number] [address] [place] [address], [place] [address] Mar, [facility] [address] [id number] [address] [place] [address], [place] [address] Mar, [facility] [address] [id number] [address] [place] [address], [place] [address] Mar, [facility] [address] [id number] [address] [place] [address] Mar, [facility] [address] [id number] [address] [place] [address] Feb, [facility] [address] [id number] [address] [place] [address] Feb, [facility] [address] [id number] [address] [place] [address], [place] [address] Jan, [facility] [address] [id number] [address] [place] [address], [place] [address] Jan, [facility] [address] [id number] [address] [place] [address], [place] [address] 25 Dec, 2011 [facility] [address] [id number] [address] [place] [address] Nov, [facility] [address] [id number] [address] [place] [address], [place] [address] Nov, [facility] [address] [id number] [address] [place] [address], [place] [address] Nov, [facility] [address] [id number] [address] [place] [address], [place] [address] Nov, [facility] [address] [id number] [address] [place] [address], [place] [address] Oct, [facility] [address] [id number] [address] [place] [address], [place] [address] Oct, [facility] [address] [id number] [address] [place] [address], [place] [address] Oct, [facility] [address] [id number] [address] [place] [address], [place] [address] Sep, [facility] [address] [id number] [address] [place] [address], [place] [address] Sep, [facility] [address] [id number] [address] [place] [address], [place] [address] Sep, [facility] [address] [id number] [address] [place] [address], [place] [address] August, [facility] [address] [id number] [address] [place] [address], [place] [address] August, [facility] [address] [id number] [address] [place] [address], [place] [address] Jul, [facility] [address] [id number] [address] [place] [address], [place] [address] 24 Jul, 2011 [facility] [address] [id number] [address] [place] [address], [place] [address] 17 Jul, 2011 [facility] [address] [id number] [address] [place] [address], [place] [address] Jul, [facility] [address] [id number] [address] [place] [address], [place] [address] Jun, [facility] [address] [id number] [address] [place] [address], [place] [address] 06 May, 2011 [facility] [address] [id number] [address] [place] [address], [place] [address] Apr, [facility] [address] [id number] [address] [place] [address], [place] [address] Apr, [facility] [address] [id number] [address] [place] [address], [place] [address] Apr, [facility] [address] [id number] [address] [place] [address], [place] [address] Apr, [facility] [address] [id number] [address] [place] [address], [place] [address] Apr, [facility] [address] [id number] [address] [place] [address], [place] [address] Apr, [facility] [address] [id number] [address] [place] [address], [place] [address] Mar, [facility] [address] [id number] [address] [place] [address], [place] [address] Mar, [facility] [address] [id number] [address] [place] [address], [place] [address] Feb, [facility] [address] [id number] [address] [place] [address], [place] [address] Feb, [facility] [address] [id number] [address] [place] [address], [place] [address] 17 Feb, 2011 [facility] [address] [id number] [address] [place] [address], [place] [address] 09 Feb, 2011 [facility] [address] [id number] [address] [place] [address], [place] [address] 20 Jan, 2011 [facility] [address] [id number] [address] [place] [address] 18 Jan, 2011 [facility] [address] [id number] [address] [place] [address], [place] [address] 18 Jan, 2011 [facility] [address] [id number] [address] [place] [address], [place] [address] 18 Jan, 2011 [facility] [address] [id number] [address] [place] [address], [place] [address] 17 Nov, 2010 [facility] [address] [id number] [address] [place] [address], [place] [address] Mar, [facility] [address] [id number] [address] [place] [address], [place] [address] Mar, [facility] [address] [id number] [address] [place] [address] 30 Feb, 2010 [facility] [address] [id number] [address] [place] [address], [place] [address] Feb, [facility] [address] [id number] [address] [place] [address] Jan, [facility] [address] [id number] [address] [place] [address], [place] [address] Jan, [facility] [address] [id number] [address] [place] [address] Sep, [facility] [address] [id number] [address] [place] [address] 16 May, 2009 [facility] [address] [id number] [address] [place] [address] Apr, [facility] [address] [id number] [address] [place] [address], [place] [address] Mar, [facility] [address] [id number] [address] [place] [id number] 15 Feb, 2009 [facility] [address] [id number] [address] [place] [phone] Feb, [facility] [address] [id number] [address] [place] [phone] 10 Feb, 2009 [facility] [address] [facility] [id number] [address] [place] [phone] Jan, [facility] [address] [facility] [id number] [address] [place] [phone] Jan, [facility] [address] [facility] [id number] [address] [place] [phone] Jan, [facility] [address] [facility] [id number] [address] [place] [phone] Jan, [facility] [address] [facility] [id number] [address] [place] [phone] August, IMMUNIZATIONS No Known Immunizations SOCIAL HISTORY [...] surgery Hospitalization History [facility], inpa tient treatment few times for BH
--- OUTSIDE RECORDS SUMMARY | 2019-09-29 10:49 | XMS REPORT ---
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 Active 69482143 Problem Open-angle glaucoma of both eyes, unspecified glaucoma stage, unspecified open-angle glaucoma type H40.10X0 Acti ve 57188090 Problem Adjustment disorder, unspecified type F43.20 Active 46885176 Problem Obstructive sleep apnea G47.33 Active 52926102 Problem Hypertensive retinopathy of both eyes H35.033 Active 9359639 Problem Type 2 diabetes mellitus with complication E11.8 Active 58949140 Problem Essential hypertension I10 Active 48500884 Problem Diabetes E11.9 Active 99747287 Problem Bipolar disorder, in partial remission, most rec ent episode manic F31.73 Active 87341296 Problem Intermittent explosive disorder in adult F63.81 Active 55763609 Problem Other diabetic neurological complication associated with type 2 diabetes mellitus E11.49 Active 155749273 Problem Depression F32.9 Active 45813562 Problem Neuropathy G62.9 Active 684835190 Problem Intermittent explosive disorder F63.81 Active 66820458 Problem Bipolar disorder, unspecified F31.9 Active 71761036 Problem Mild intellectual disability F70 A ctive 57000916 Problem Reactive airway disease, mild intermittent, uncomplicated J45.20 Active 304860386 Problem Gastroesophageal reflux disease without esophagitis K21.9 Active 264266526 ALLERGIES No Information ENCOUNTERS Encounter Location Date Diagnosis [facility] [address] [facility] [id number] [address] [place] [address] Dec, [facility] [address] [facility] [id number] [address] [place] [address] Oct, OUTREACH [facility] [address] [id number] [place] [address] Oct, Oral health maintenance stat us requiring routine preventive dental care K08.9 [facility] [address] [facility] [id number] [address] [place] [address] August, Intermittent explosive disor salvatore in adult F63.81 ; Bipolar disorder, unspecified F31.9 and Mild intellectual disability F70 [facility] [address] [facility] [id number] [address] [place] [address] [id number] August, Dental caries K02.9 [facility] [address] [facility] [id number] [address] [place] [address] Jul, Onychomycosis B35.1 ; Other diabetic neurological complication associated with type 2 diabetes mellitus E11.49 and Tinea pedis of both feet B35.3 [facility] [address] [facility] [id number] [address] [place] [address] [id number] Jul, Caries K02.9 [facility] [address] [facility] [id number] [address] [place] [address] Jul, Type 2 diabetes mellitus wit h complication E11.8 ; Tobacco abuse Z72.0 and Bipolar disorder, unspecified F31.9 [facility] [address] [facility] [id number] [address] [place] [address] Jun, [facility] [address] [facility] [id number] [address] [place] [address] [id number] Jun, Dental examination Z01.20 an d Oral health maintenance status requiring routine preventive dental care K08.9 [facility] [address] [facility] [id number] [address] [place] [address] May, Bilateral impacted cerumen H 61.23 [facility] [address] [facility] [id number] [address] [place] [address] Apr, Bipolar disorder, unspecifie d F31.9 ; Intermittent explosive disorder in adult F63.81 ; Type 2 diabetes mellitus with complication E11.8 ; Tobacco abuse Z72.0 and Colon cancer screening Z12.11 [facility] [address] [address] Apr, Onychomycosis B35.1 and Othe r diabetic neurological complication associated with type 2 diabetes mellitus E11.49 [facility] [address] [place] [id number] [place] [address] Apr, Intermittent explosive disor salvatore in adult F63.81 ; Bipolar disorder, unspecified F31.9 and Mild intellectual disability F70 [place] [address] [address] Mar, Diabetes E11.9 [facility] [address] [address] Jan, Encounter for immunization Z 23 [place] [address] [address] Jan, Tinea pedis of both feet B35 .3 ; Other diabetic neurological complication associated with type 2 diabetes mellitus E11.49 and Onychomycosis B35.1 [place] [address] [place] [id number] [place] [address] Nov, Type 2 diabetes mellitus wit h complication E11.8 [place] [address] [place] [id number] [place] [address] Nov, [facility] [address] [address] Oct, Intermittent explosive disor salvatore in adult F63.81 ; Bipolar disorder, unspecified F31.9 and Mild intellectual disability F70 [facility] [address] [place] [id number] [place] [address] Oct, [facility] [address] [id number] [address] [place] [address] [id number] Oct, Dental examination Z01.20 [facility] [address] [place] [id number] [address] [place] [address] Oct, Onychomycosis B35.1 and Othe r diabetic neurological complication associated with type 2 diabetes mellitus E11.49 [place] [address] [place] [id number] [place] [address] Sep, Type 2 diabetes mellitus wit h complication E11.8 and Colon cancer screening Z12.11 [place] [address] [place] [id number] [place] [address] Sep, Type 2 diabetes mellitus wit h complication E11.8 ; Colon cancer screening Z12.11 and Neuropathy G62.9 [place] [address] [place] [id number] [place] [address] August, Diabetes E11.9 [facility] [address] [id number] [address] [place] [address] [id number] Jul, Dental examination Z01.20 [place] [address] [place] [id number] [place] [address] May, Mild intellectual disability F70 [place] [address] [address] May, Mild intellectual disability F70 ; High risk medication use Z79.899 ; Intermittent explosive disorder in adult F63.81 and Bipolar disorder, unspecified F31.9 [place] [address] [place] [id number] [place] [address] May, [place] [address] [place] [id number] [place] [address] May, [place] [address] [place] [id number] [place] [address] Apr, Type 2 diabetes mellitus wit h complication E11.8 ; Mild intellectual disability F70 ; Gastroesophageal reflux disease without esophagitis K21.9 ; Reactive airway disease, mild intermittent, uncomplicated J45.20 and Tobacco abuse Z72.0 [place] [address] [place] [id number] [place] [address] Apr, High risk medication use Z79 .899 ; Mild intellectual disability F70 ; Intermittent explosive disorder in adult F63.81 and Bipolar disorder, unspecified F31.9 [facility] [address] [id number] [address] [place] [address] [id number] Mar, Encounter for dental exam an d cleaning w/o abnormal findings Z01.20 [facility] [address] [id number] [address] [place] [address] [id number] Mar, Dental examination Z01.20 [facility] [address] [id number] [address] [place] [address] 12 Jan, 2017 [facility] [address] [id number] [address] [place] [address] Jan, [facility] [address] [id number] [address] [place] [address] Jan, Mild intellectual disability F70 ; Bipolar disorder, unspecified F31.9 and Intermittent explosive disorder in adult F63.81 [facility] [address] [id number] [address] [place] [address] Jan, Diabetes E11.9 [facility] [address] [id number] [address] [place] [address] [phone] Dec, Encounter for dental examina tion and cleaning without abnormal findings Z01.20 [facility] [address] [id number] [address] [place] [address] Dec, Bipolar disorder, unspecifie d F31.9 ; Intermittent explosive disorder in adult F63.81 and Mild intellectual disability F70 [facility] [address] [id number] [address] [place] [address] Nov, Diabetes E11.9 [facility] [address] [id number] [address] [place] [address] Nov, [facility] [address] [id number] [address] [place] [address] Nov, Diabetes E11.9 and Colon can cer screening Z12.[address] [id number] [id number] 21 Sep, 2016 Dental examination Z01.20 [facility] [address] [id number] [address] [place] [address] [id number] 21 Sep, 2016 Encounter for dental examina tion and cleaning without abnormal findings Z01.20 [facility] [address] [id number] [address] [place] [phone] 13 Sep, 2016 Bipolar disorder, unspecifie d F31.9 [facility] [address] [id number] [address] [place] [address] 12 Sep, 2016 Bipolar disorder, unspecifie d F31.9 [facility] [address] [facility] [id number] [address] [place] [address] Jul, [facility] [address] [facility] [id number] [address] [place] [address] Jul, Type 2 diabetes mellitus wit h complication E11.8 [facility] [address] [id number] [address] [place] [address] [id number] 15 Jun, 2016 Encounter for dental examina tion and cleaning without abnormal findings Z01.[address] [id number] [id number] 15 Jun, 2016 Dental examination Z01.20 [facility] [address] [facility] [id number] [address] [place] [address] 18 Apr, 2016 Sports physical Z02.5 [facility] [address] [id number] [address] [place] [phone] 14 Mar, 2016 Bipolar disorder, in partial remission, most recent episode manic F31.73 and Intermittent explosive disorder in adult F63.81 [facility] [address] [id number] [address] [place] [phone] 08 Mar, 2016 [facility] [address] [facility] [id number] [address] [place] [phone] Mar, Diabetes E11.9 [facility] [address] [id number] [address] [place] [address] [id number] Feb, Encounter for dental examina tion and cleaning without abnormal findings Z01.20 [facility] [address] [id number] [address] [place] [address] 22 Dec, 2015 Nocturnal hypoxemia G47.34 a nd Encounter for immunization Z23 [facility] [address] [facility] [id number] [address] [place] [address] 15 Dec, 2015 [facility] [address] [facility] [id number] [address] [place] [address] Dec, [facility] [address] [facility] [id number] [address] [place] [address] Dec, Bipolar disorder, unspecifie d F31.9 [facility] [address] [id number] [address] [place] [address] [id number] Oct, Encounter for dental examina tion and cleaning without abnormal findings Z01.20 [facility] [address] [id number] [place] [address] [id number] Oct, Dental examination Z01.20 [facility] [address] [facility] [id number] [address] [place] [address] Oct, Diabetes E11.9 [facility] [address] [facility] [id number] [address] [place] [address] Oct, Diabetes E11.9 ; Reactive ai rway disease, mild intermittent, uncomplicated J45.20 and Tobacco abuse Z72.0 [facility] [address] [facility] [id number] [address] [place] [address] Sep, Bipolar disorder, unspecifie d F31.9 and Depression F32.9 [facility] [address] [facility] [id number] [address] [place] [address] Sep, [facility] [address] [facility] [id number] [address] [place] [address] August, Tinea pedis of both feet B35 .3 and DM w/o complication type II, uncontrolled E11.65 [place] [address] [id number] Jul, [place] [address] [address] Jul, [place] [address] [address] Jul, Obstructive sleep apnea G47. 33 [place] [address] [address] Jun, Diabetes E11.9 [place] [address] [address] Jun, [place] [address] [address] Jun, [place] [address] [address] Jun, Bipolar disorder, unspecifie d F31.9 and Mental retardation F79 [place] [address] [address] Apr, [place] [address] [address] Feb, Diabetes E11.9 ; Encounter f or immunization Z23 ; Cough R05 and Nicotine abuse Z72.0 [place] [address] [address] Jan, Bipolar disorder, unspecifie d F31.9 and Diabetes mellitus without mention of complication, type II or unspecified type, uncontrolled 250.02 [place] [address] [address] Jan, [place] [address] [address] Dec, Reactive airway disease 493. 90 and Enuresis 788.30 [place] [address] [id number] [address] [place] [phone] Dec, [facility] [address] [facility] [id number] [address] [place] [address] Nov, [facility] [address] [facility] [id number] [address] [place] [address] Nov, [facility] [address] [facility] [id number] [address] [place] [address] Nov, Annual physical exam V70.0 ; Urinary incontinence 788.30 ; Diabetes 250.00 and Hypertension 401.9 [facility] [address] [id number] [address] [place] [address] Oct, Diabetes mellitus without me ntion of complication, type II or unspecified type, uncontrolled 250.02 [facility] [address] [facility] [id number] [address] [place] [address] Oct, Diabetes mellitus without me ntion of complication, type II or unspecified type, uncontrolled 250.02 [facility] [address] [facility] [id number] [address] [place] [address] Oct, Diabetes mellitus without me ntion of complication, type II or unspecified type, uncontrolled 250.02 [facility] [address] [facility] [id number] [address] [place] [address] Oct, [facility] [address] [facility] [id number] [address] [place] [address] Oct, [facility] [address] [facility] [id number] [address] [place] [address] Oct, Bipolar disorder, unspecifie d 296.80 [facility] [address] [id number] [place] [address] [id number] Sep, Dental examination V72.2 [facility] [address] [facility] [id number] [address] [place] [address] August, [facility] [address] [id number] [place] [address] [id number] August, Dental examination V72.2 [facility] [address] [id number] [address] [place] [address], [place] [address] August, [facility] [address] [id number] [address] [place] [address] 14 Jul, 2014 [facility] [address] [id number] [address] [place] [address] Jul, [facility] [address] [id number] [address] [place] [address] 17 Jun, 2014 [facility] [address] [id number] [address] [place] [address] Jun, [facility] [address] [id number] [address] [place] [address] Jun, [facility] [address] [id number] [address] [place] [phone] Jun, [facility] [address] [id number] [address] [place] [address] May, [facility] [address] [id number] [address] [place] [address] May, 2014 [facility] [address] [id number] [address] [place] [phone] 16 May, 2014 [facility] [address] [id number] [address] [place] [address] 16 May, 2014 [facility] [address] [id number] [address] [place] [address] May, 2014 [facility] [address] [id number] [address] [place] [address] May, 2014 [facility] [address] [id number] [address] [place] [id number] 16 May, 2014 [facility] [address] [id number] [address] [place] [phone] 16 May, 2014 [facility] [address] [id number] [address] [place] [address], [place] [address] May, 2014 [facility] [address] [id number] [address] [place] [address], [place] [address] May, 2014 [facility] [address] [id number] [address] [place] [address], [place] [address] May, 2014 [facility] [address] [id number] [address] [place] [address], [place] [address] May, 2014 [facility] [address] [id number] [address] [place] [address], [place] [address] May, [facility] [address] [id number] [address] [place] [address], [place] [address] May, 2014 [facility] [address] [id number] [address] [place] [address], [place] [address] May, [facility] [address] [id number] [address] [place] [address], [place] [address] Apr, [facility] [address] [id number] [address] [place] [address], [place] [address] Apr, [facility] [address] [id number] [address] [place] [address], [place] [address] Apr, [facility] [address] [id number] [address] [place] [address], [place] [address] Apr, [facility] [address] [id number] [address] [place] [address], [place] [address] Apr, [facility] [address] [id number] [address] [place] [address], [place] [address] Apr, [facility] [address] [id number] [address] [place] [address], [place] [address] Apr, [facility] [address] [id number] [address] [place] [address], [place] [address] Apr, [facility] [address] [id number] [address] [place] [address], [place] [address] Apr, [facility] [address] [id number] [address] [place] [address], [place] [address] Apr, [facility] [address] [id number] [address] [place] [address], [place] [address] Apr, [facility] [address] [id number] [address] [place] [address], [place] [address] Apr, [facility] [address] [id number] [address] [place] [address], [place] [address] Mar, [facility] [address] [id number] [address] [place] [address], [place] [address] Mar, [facility] [address] [id number] [address] [place] [address], [place] [address] Mar, [facility] [address] [id number] [address] [place] [address], [place] [address] Mar, [facility] [address] [id number] [address] [place] [address], [place] [address] Mar, [facility] [address] [id number] [address] [place] [address], [place] [address] Mar, [facility] [address] [id number] [address] [place] [address], [place] [address] 13 Feb, 2014 [facility] [address] [id number] [address] [place] [address], [place] [address] Feb, [facility] [address] [id number] [address] [place] [address], [place] [address] Feb, [facility] [address] [id number] [address] [place] [address], [place] [address] 13 Feb, 2014 [facility] [address] [id number] [address] [place] [address], [place] [address] 14 Jan, 2014 [facility] [address] [id number] [address] [place] [address], [place] [id number] 14 Jan, 2014 [facility] [address] [id number] [address] [place] [address], [place] [id number] 14 Jan, 2014 [facility] [address] [id number] [address] [place] [address], [place] [id number] 14 Jan, 2014 [facility] [address] [id number] [address] [place] [address], [place] [address] Dec, [facility] [address] [id number] [address] [place] [address], [place] [id number] Dec, [facility] [address] [id number] [address] [place] [address], [place] [id number] Dec, [facility] [address] [id number] [address] [place] [address], [place] [address] Dec, [facility] [address] [id number] [address] [place] [address], [place] [id number] Nov, [facility] [address] [id number] [address] [place] [address], [place] [address] Nov, [facility] [address] [id number] [address] [place] [address], [place] [id number] Nov, [facility] [address] [id number] [address] [place] [address], [place] [id number] Nov, [facility] [address] [id number] [address] [place] [address], [place] [address] Nov, [facility] [address] [id number] [address] [place] [address], [place] [address] Nov, [facility] [address] [id number] [address] [place] [address], [place] [address] Nov, [facility] [address] [id number] [address] [place] [address], [place] [address] Oct, [facility] [address] [id number] [address] [place] [address], [place] [address] Oct, [facility] [address] [id number] [address] [place] [address], [place] [address] Oct, [facility] [address] [id number] [address] [place] [address], [place] [address] Oct, [facility] [address] [id number] [address] [place] [address], [place] [address] Oct, [facility] [address] [id number] [address] [place] [address], [place] [address] Oct, [facility] [address] [id number] [address] [place] [address], [place] [address] Oct, [facility] [address] [id number] [address] [place] [address], [place] [address] Sep, [facility] [address] [id number] [address] [place] [address], [place] [address] Sep, [facility] [address] [id number] [address] [place] [address], [place] [address] Sep, [facility] [address] [id number] [address] [place] [address], [place] [address] Sep, [facility] [address] [id number] [address] [place] [address], [place] [address] Sep, [facility] [address] [id number] [address] [place] [address], [place] [address] Jul, [facility] [address] [id number] [address] [place] [address], [place] [address] Jul, [facility] [address] [id number] [address] [place] [address], [place] [address] Jul, [facility] [address] [id number] [address] [place] [address], [place] [address] Jul, [facility] [address] [id number] [address] [place] [address], [place] [address] Jul, [facility] [address] [id number] [address] [place] [address], [place] [address] Jul, [facility] [address] [id number] [facility] [place] [address] Jul, [facility] [address] [id number] [facility] [place] [address] Jul, [facility] [address] [id number] [facility] [place] [address] Jul, [facility] [address] [id number] [address] [place] [address], [place] [address] Jul, [facility] [address] [id number] [address] [place] [address], [place] [address] Jul, [facility] [address] [id number] [address] [place] [address], [place] [address] Jul, [facility] [address] [id number] [address] [place] [address], [place] [address] Jun, [facility] [address] [id number] [address] [place] [address], [place] [address] Jun, [facility] [address] [id number] [address] [place] [address], [place] [address] Jun, [facility] [address] [id number] [address] [place] [address], [place] [address] Jun, [facility] [address] [id number] [address] [place] [address], [place] [address] Jun, [facility] [address] [id number] [address] [place] [address], [place] [address] Jun, [facility] [address] [id number] [address] [place] [address], [place] [address] Jun, [facility] [address] [id number] [address] [place] [address], [place] [address] Jun, [facility] [address] [id number] [address] [place] [address], [place] [address] May, [facility] [address] [id number] [address] [place] [address], [place] [address] May, [facility] [address] [id number] [address] [place] [address], [place] [address] May, [facility] [address] [id number] [address] [place] [address], [place] [address] May, [facility] [address] [id number] [address] [place] [address], [place] [address] May, [facility] [address] [id number] [address] [place] [address], [place] [address] May, [facility] [address] [id number] [address] [place] [address], [place] [address] May, [facility] [address] [id number] [address] [place] [address], [place] [address] May, [facility] [address] [id number] [address] [place] [address], [place] [address] Apr, [facility] [address] [id number] [address] [place] [address], [place] [address] Apr, [facility] [address] [id number] [address] [place] [address], [place] [address] Apr, [facility] [address] [id number] [address] [place] [address], [place] [address] Apr, [facility] [address] [id number] [address] [place] [address], [place] [address] Mar, [facility] [address] [id number] [address] [place] [address], [place] [address] Mar, [facility] [address] [id number] [address] [place] [address], [place] [address] Mar, [facility] [address] [id number] [address] [place] [address], [place] [address] Feb, [facility] [address] [id number] [address] [place] [address], [place] [address] Feb, [facility] [address] [id number] [address] [place] [address], [place] [address] Feb, [facility] [address] [id number] [address] [place] [address], [place] [address] Feb, [facility] [address] [id number] [address] [place] [address], [place] [address] Feb, [facility] [address] [id number] [address] [place] [address], [place] [address] Feb, [facility] [address] [id number] [address] [place] [address], [place] [address] Jan, [facility] [address] [id number] [address] [place] [address], [place] [address] Jan, [facility] [address] [id number] [address] [place] [address], [place] [address] Jan, [facility] [address] [id number] [address] [place] [address], [place] [address] Jan, [facility] [address] [id number] [address] [place] [address], [place] [address] Jan, [facility] [address] [id number] [address] [place] [address], [place] [address] Jan, [facility] [address] [id number] [address] [place] [address], [place] [address] Jan, [facility] [address] [id number] [address] [place] [address], [place] [address] 25 Dec, 2012 [facility] [address] [id number] [address] [place] [address], [place] [address] 16 Dec, 2012 [facility] [address] [id number] [address] [place] [address], [place] [address] 10 Dec, 2012 [facility] [address] [id number] [address] [place] [address], [place] [address] 05 Dec, 2012 [facility] [address] [id number] [address] [place] [address], [place] [address] Nov, [facility] [address] [id number] [address] [place] [address], [place] [address] Nov, [facility] [address] [id number] [address] [place] [address], [place] [address] Nov, [facility] [address] [id number] [address] [place] [address], [place] [address] Nov, [facility] [address] [id number] [address] [place] [address], [place] [address] Nov, [facility] [address] [id number] [address] [place] [address], [place] [address] Nov, [facility] [address] [id number] [address] [place] [address], [place] [address] Nov, [facility] [address] [id number] [address] [place] [address], [place] [address] Oct, [facility] [address] [id number] [address] [place] [address], [place] [address] Oct, [facility] [address] [id number] [address] [place] [address], [place] [address] Oct, [facility] [address] [id number] [address] [place] [address], [place] [address] Oct, [facility] [address] [id number] [address] [place] [address], [place] [address] Oct, [facility] [address] [id number] [address] [place] [address], [place] [address] Oct, [facility] [address] [id number] [address] [place] [address], [place] [address] Oct, [facility] [address] [id number] [address] [place] [address], [place] [address] Oct, [facility] [address] [id number] [address] [place] [address], [place] [address] Sep, Suleiman PEREZ [address] [id number] [place] [id number] 30 Aug, 2012 [facility] [address] [id number] [address] [place] [address], [place] [address] August, [facility] [address] [id number] [facility] [place] [address] Jul, [facility] [address] [id number] [address] [place] [address], [place] [address] Jul, [facility] [address] [id number] [address] [place] [address], [place] [address] Jul, [facility] [address] [id number] [address] [place] [address], [place] [address] Jul, [facility] [address] [id number] [address] [place] [address], [place] [address] Jul, [facility] [address] [id number] [address] [place] [address], [place] [address] Jul, [facility] [address] [id number] [address] [place] [address], [place] [address] 16 Jul, 2012 [facility] [address] [id number] [address] [place] [address], [place] [address] Jun, [facility] [address] [id number] [address] [place] [address], [place] [address] Jun, [facility] [address] [id number] [address] [place] [address], [place] [address] Jun, [facility] [address] [id number] [address] [place] [address], [place] [address] Jun, [facility] [address] [id number] [address] [place] [address], [place] [address] Jun, [facility] [address] [id number] [address] [place] [address], [place] [address] May, [facility] [address] [id number] [address] [place] [address], [place] [address] 18 May, 2012 [facility] [address] [id number] [address] [place] [address], [place] [address] 04 May, 2012 [facility] [address] [id number] [address] [place] [address], [place] [address] 15 Apr, 2012 [facility] [address] [id number] [address] [place] [address], [place] [address] 14 Apr, 2012 [facility] [address] [id number] [address] [place] [address], [place] [address] 07 Apr, 2012 [facility] [address] [id number] [address] [place] [address], [place] [address] Mar, [facility] [address] [id number] [address] [place] [address], [place] [address] 31 Mar, 2012 [facility] [address] [id number] [address] [place] [address], [place] [address] Mar, [facility] [address] [id number] [address] [place] [address], [place] [address] Mar, [facility] [address] [id number] [address] [place] [address], [place] [address] Mar, [facility] [address] [id number] [address] [place] [address] Mar, [facility] [address] [id number] [address] [place] [address] Feb, [facility] [address] [id number] [address] [place] [address] Feb, [facility] [address] [id number] [address] [place] [address], [place] [address] Jan, [facility] [address] [id number] [address] [place] [address], [place] [address] Jan, [facility] [address] [id number] [address] [place] [address], [place] [address] 25 Dec, 2011 [facility] [address] [id number] [address] [place] [address] Nov, [facility] [address] [id number] [address] [place] [address], [place] [address] Nov, [facility] [address] [id number] [address] [place] [address], [place] [address] Nov, [facility] [address] [id number] [address] [place] [address], [place] [address] Nov, [facility] [address] [id number] [address] [place] [address], [place] [address] Oct, [facility] [address] [id number] [address] [place] [address], [place] [address] Oct, [facility] [address] [id number] [address] [place] [address], [place] [address] Oct, [facility] [address] [id number] [address] [place] [address], [place] [address] Sep, [facility] [address] [id number] [address] [place] [address], [place] [address] Sep, [facility] [address] [id number] [address] [place] [address], [place] [address] Sep, [facility] [address] [id number] [address] [place] [address], [place] [address] August, [facility] [address] [id number] [address] [place] [address], [place] [address] August, [facility] [address] [id number] [address] [place] [address], [place] [address] Jul, [facility] [address] [id number] [address] [place] [address], [place] [address] 24 Jul, 2011 [facility] [address] [id number] [address] [place] [address], [place] [address] 17 Jul, 2011 [facility] [address] [id number] [address] [place] [address], [place] [address] Jul, [facility] [address] [id number] [address] [place] [address], [place] [address] Jun, [facility] [address] [id number] [address] [place] [address], [place] [address] 06 May, 2011 [facility] [address] [id number] [address] [place] [address], [place] [address] Apr, [facility] [address] [id number] [address] [place] [address], [place] [address] Apr, [facility] [address] [id number] [address] [place] [address], [place] [address] Apr, [facility] [address] [id number] [address] [place] [address], [place] [address] Apr, [facility] [address] [id number] [address] [place] [address], [place] [address] Apr, [facility] [address] [id number] [address] [place] [address], [place] [address] Apr, [facility] [address] [id number] [address] [place] [address], [place] [address] Mar, [facility] [address] [id number] [address] [place] [address], [place] [address] Mar, [facility] [address] [id number] [address] [place] [address], [place] [address] Feb, [facility] [address] [id number] [address] [place] [address], [place] [address] Feb, [facility] [address] [id number] [address] [place] [address], [place] [address] 17 Feb, 2011 [facility] [address] [id number] [address] [place] [address], [place] [address] 09 Feb, 2011 [facility] [address] [id number] [address] [place] [address], [place] [address] 20 Jan, 2011 [facility] [address] [id number] [address] [place] [address] 18 Jan, 2011 [facility] [address] [id number] [address] [place] [address], [place] [address] 18 Jan, 2011 [facility] [address] [id number] [address] [place] [address], [place] [address] 18 Jan, 2011 [facility] [address] [id number] [address] [place] [address], [place] [address] 17 Nov, 2010 [facility] [address] [id number] [address] [place] [address], [place] [address] Mar, [facility] [address] [id number] [address] [place] [address], [place] [address] Mar, [facility] [address] [id number] [address] [place] [address] 30 Feb, 2010 [facility] [address] [id number] [address] [place] [address], [place] [address] Feb, [facility] [address] [id number] [address] [place] [address] Jan, [facility] [address] [id number] [address] [place] [address], [place] [address] Jan, [facility] [address] [id number] [address] [place] [address] Sep, [facility] [address] [id number] [address] [place] [address] 16 May, 2009 [facility] [address] [id number] [address] [place] [address] Apr, [facility] [address] [id number] [address] [place] [address], [place] [address] Mar, [facility] [address] [id number] [address] [place] [address] 15 Feb, 2009 [facility] [address] [id number] [address] [place] [address] Feb, [facility] [address] [id number] [address] [place] [address] 10 Feb, 2009 [facility] [address] [facility] [id number] [address] [place] [id number] Jan, [facility] [address] [facility] [id number] [address] [place] [phone] Jan, [facility] [address] [facility] [id number] [address] [place] [phone] Jan, [facility] [address] [facility] [id number] [address] [place] [phone] Jan, [facility] [address] [facility] [id number] [address] [place] [id number] August, IMMUNIZATIONS No Known Immunizations SOCIAL HISTORY [...] age 6 Hospitalization History surgery Hospitalization History [facility], inpa tient treatment few times for BH
[2019-09-29 10:50] VITALS: BP 116/74
--- OUTSIDE RECORDS SUMMARY | 2019-09-29 10:50 | XMS REPORT ---
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 Active 26354009 Problem Open-angle glaucoma of both eyes, unspecified glaucoma stage, unspecified open-angle glaucoma type H40.10X0 Acti ve 86365915 Problem Adjustment disorder, unspecified type F43.20 Active 36241795 Problem Obstructive sleep apnea G47.33 Active 24609445 Problem Hypertensive retinopathy of both eyes H35.033 Active 2045398 Problem Type 2 diabetes mellitus with complication E11.8 Active 55746970 Problem Essential hypertension I10 Active 97357309 Problem Diabetes E11.9 Active 60625663 Problem Bipolar disorder, in partial remission, most rec ent episode manic F31.73 Active 11887286 Problem Intermittent explosive disorder in adult F63.81 Active 03503110 Problem Other diabetic neurological complication associated with type 2 diabetes mellitus E11.49 Active 499177046 Problem Depression F32.9 Active 00889075 Problem Neuropathy G62.9 Active 717903786 Problem Intermittent explosive disorder F63.81 Active 75291923 Problem Bipolar disorder, unspecified F31.9 Active 84824924 Problem Mild intellectual disability F70 A ctive 73066707 Problem Reactive airway disease, mild intermittent, uncomplicated J45.20 Active 849081971 Problem Gastroesophageal reflux disease without esophagitis K21.9 Active 010505126 ALLERGIES No Information ENCOUNTERS Encounter Location Date Diagnosis [facility] [address] [facility] [id number] [address] [place] [address] Dec, [facility] [address] [facility] [id number] [address] [place] [address] Oct, OUTREACH [facility] [address] [place] [id number] [place] [address] Oct, Oral health maintenance stat us requiring routine preventive dental care K08.9 [facility] [address] [facility] [id number] [address] [place] [address] August, Intermittent explosive disor salvatore in adult F63.81 ; Bipolar disorder, unspecified F31.9 and Mild intellectual disability F70 [facility] [address] [facility] [id number] [address] [place] [address] [id number] August, Dental caries K02.9 [facility] [address] [facility] [id number] [address] [place] [address] Jul, Onychomycosis B35.1 ; Other diabetic neurological complication associated with type 2 diabetes mellitus E11.49 and Tinea pedis of both feet B35.3 [facility] [address] [facility] [id number] [address] [place] [address] [id number] Jul, Caries K02.9 [facility] [address] [facility] [id number] [address] [place] [address] Jul, Type 2 diabetes mellitus wit h complication E11.8 ; Tobacco abuse Z72.0 and Bipolar disorder, unspecified F31.9 [facility] [address] [facility] [id number] [address] [place] [address] Jun, [facility] [address] [facility] [id number] [address] [place] [address] [id number] Jun, Dental examination Z01.20 an d Oral health maintenance status requiring routine preventive dental care K08.9 [facility] [address] [facility] [id number] [address] [place] [address] May, Bilateral impacted cerumen H 61.23 [facility] [address] [facility] [id number] [address] [place] [address] Apr, Bipolar disorder, unspecifie d F31.9 ; Intermittent explosive disorder in adult F63.81 ; Type 2 diabetes mellitus with complication E11.8 ; Tobacco abuse Z72.0 and Colon cancer screening Z12.11 [facility] [address] [address] Apr, Onychomycosis B35.1 and Othe r diabetic neurological complication associated with type [address] [facility] [address] [place] [id number] [address] [place] [address] Apr, Intermittent explosive disor salvatore in adult F63.81 ; Bipolar disorder, unspecified F31.9 and Mild intellectual disability F70 [place] [address] [address] Mar, Diabetes E11.9 [facility] [address] [address] Jan, Encounter for immunization Z 23 [place] [address] [address] Jan, Tinea pedis of both feet B35 .3 ; Other diabetic neurological complication associated with type 2 diabetes mellitus E11.49 and Onychomycosis B35.1 [place] [address] [place] [id number] [address] [place] [address] Nov, Type 2 diabetes mellitus wit h complication E11.8 [place] [address] [place] [id number] [address] [place] [address] Nov, [facility] [address] [address] Oct, Intermittent explosive disor salvatore in adult F63.81 ; Bipolar disorder, unspecified F31.9 and Mild intellectual disability F70 [facility] [address] [place] [id number] [address] [place] [address] Oct, [facility] [address] [id number] [address] [place] [address] [id number] Oct, Dental examination Z01.20 [facility] [address] [place] [place] [id number] [address] [place] [address] Oct, Onychomycosis B35.1 and Othe r diabetic neurological complication associated with type 2 diabetes mellitus E11.49 [place] [address] [place] [id number] [address] [place] [address] Sep, Type 2 diabetes mellitus wit h complication E11.8 and Colon cancer screening Z12.11 [place] [address] [place] [id number] [address] [place] [address] Sep, Type 2 diabetes mellitus wit h complication E11.8 ; Colon cancer screening Z12.11 and Neuropathy G62.9 [place] [address] [place] [id number] [address] [place] [address] August, Diabetes E11.9 [facility] [address] [place] [id number] [address] [place] [address] [id number] Jul, Dental examination Z01.20 [place] [address] [place] [id number] [address] [place] [address] May, Mild intellectual disability F70 [place] [address] [address] May, Mild intellectual disability F70 ; High risk medication use Z79.899 ; Intermittent explosive disorder in adult F63.81 and Bipolar disorder, unspecified F31.9 [place] [address] [place] [id number] [address] [place] [address] May, [place] [address] [place] [id number] [address] [place] [address] May, [place] [address] [place] [id number] [address] [place] [address] Apr, Type 2 diabetes mellitus wit h complication E11.8 ; Mild intellectual disability F70 ; Gastroesophageal reflux disease without esophagitis K21.9 ; Reactive airway disease, mild intermittent, uncomplicated J45.20 and Tobacco abuse Z72.0 [place] [address] [place] [id number] [address] [place] [address] Apr, High risk medication use Z79 .899 ; Mild intellectual disability F70 ; Intermittent explosive disorder in adult F63.81 and Bipolar disorder, unspecified F31.9 [facility] [address] [id number] [address] [place] [address] [id number] Mar, Encounter for dental exam an d cleaning w/o abnormal findings Z01.20 [facility] [address] [id number] [address] [place] [address] [id number] Mar, Dental examination Z01.20 [facility] [address] [id number] [address] [place] [id number] 12 Jan, 2017 [facility] [address] [id number] [address] [place] [address] Jan, [facility] [address] [id number] [address] [place] [id number] Jan, Mild intellectual disability F70 ; Bipolar disorder, unspecified F31.9 and Intermittent explosive disorder in adult F63.81 [facility] [address] [id number] [address] [place] [address] Jan, Diabetes E11.9 [facility] [address] [id number] [address] [place] [address] [id number] Dec, Encounter for dental examina tion and cleaning without abnormal findings Z01.20 [facility] [address] [id number] [address] [place] [address] Dec, Bipolar disorder, unspecifie d F31.9 ; Intermittent explosive disorder in adult F63.81 and Mild intellectual disability F70 [facility] [address] [id number] [address] [place] [address] Nov, Diabetes E11.9 [facility] [address] [id number] [address] [place] [address] Nov, [facility] [address] [id number] [address] [place] [address] Nov, Diabetes E11.9 and Colon can cer screening Z12.[address] [id number] [id number] 21 Sep, 2016 Dental examination Z01.20 [facility] [address] [id number] [address] [place] [address] [id number] 21 Sep, 2016 Encounter for dental examina tion and cleaning without abnormal findings Z01.20 [facility] [address] [id number] [address] [place] [id number] 13 Sep, 2016 Bipolar disorder, unspecifie d F31.9 [facility] [address] [id number] [address] [place] [address] 12 Sep, 2016 Bipolar disorder, unspecifie d F31.9 [facility] [address] [facility] [id number] [address] [place] [address] Jul, [facility] [address] [facility] [id number] [address] [place] [address] Jul, Type 2 diabetes mellitus wit h complication E11.8 [facility] [address] [id number] [address] [place] [address] [id number] 15 Jun, 2016 Encounter for dental examina tion and cleaning without abnormal findings Z01.[address] [id number] [id number] 15 Jun, [address] [facility] [address] [facility] [id number] [address] [place] [id number] 18 Apr, [address] [facility] [address] [id number] [address] [place] [id number] 14 Mar, 2016 Bipolar disorder, in partial remission, most recent episode manic F31.73 and Intermittent explosive disorder in adult F63.81 [facility] [address] [id number] [address] [place] [id number] 08 Mar, 2016 [facility] [address] [facility] [id number] [address] [place] [address] Mar, Diabetes E11.9 [facility] [address] [id number] [address] [place] [address] [id number] Feb, Encounter for dental examina tion and cleaning without abnormal findings Z01.20 [facility] [address] [id number] [address] [place] [address] 22 Dec, 2015 Nocturnal hypoxemia G47.34 a nd Encounter for immunization Z23 [facility] [address] [facility] [id number] [address] [place] [id number] [address], [address] [facility] [address] [facility] [id number] [address] [place] [address] Dec, [facility] [address] [facility] [id number] [address] [place] [address] Dec, Bipolar disorder, unspecifie d F31.9 [facility] [address] [id number] [address] [place] [address] [id number] Oct, Encounter for dental examina tion and cleaning without abnormal findings Z01.20 [facility] [place] [id number] [place] [address] [id number] Oct, Dental examination Z01.20 [facility] [address] [facility] [id number] [address] [place] [address] Oct, Diabetes E11.9 [facility] [address] [facility] [id number] [address] [place] [address] Oct, Diabetes E11.9 ; Reactive ai rway disease, mild intermittent, uncomplicated J45.20 and Tobacco abuse Z72.0 [facility] [address] [facility] [id number] [address] [place] [address] Sep, Bipolar disorder, unspecifie d F31.[address] [facility] [address] [facility] [id number] [address] [place] [address] Sep, [facility] [address] [facility] [id number] [address] [place] [address] August, Tinea pedis of both feet B35 .3 and DM w/o complication type II, uncontrolled E11.65 [place] [address] [address] Jul, [place] [address] [address] Jul, [place] [address] [address] Jul, Obstructive sleep apnea G47. 33 [place] [address] [address] Jun, Diabetes E11.9 [place] [address] [address] Jun, [place] [address] [address] Jun, [place] [address] [address] Jun, Bipolar disorder, unspecifie d F31.9 and Mental retardation F79 [place] [address] [address] Apr, [place] [address] [address] Feb, Diabetes E11.9 ; Encounter f or immunization Z23 ; Cough R05 and Nicotine abuse Z72.0 [place] [address] [address] Jan, Bipolar disorder, unspecifie d F31.9 and Diabetes mellitus without mention of complication, type II or unspecified type, uncontrolled 250.02 [place] [address] [address] Jan, [place] [address] [address] Dec, Reactive airway disease 493. 90 and Enuresis 788.30 [place] [address] [id number] [address] [place] [address] Dec, [facility] [address] [facility] [id number] [address] [place] [address] Nov, [facility] [address] [facility] [id number] [address] [place] [id number] Nov, [facility] [address] [facility] [id number] [address] [place] [address] Nov, Annual physical exam V70.0 ; Urinary incontinence 788.30 ; Diabetes 250.[address] [facility] [address] [id number] [address] [place] [id number] Oct, Diabetes mellitus without me ntion of complication, type II or unspecified type, uncontrolled 250.02 [facility] [address] [facility] [id number] [address] [place] [id number] Oct, Diabetes mellitus without me ntion of complication, type II or unspecified type, uncontrolled 250.02 [facility] [address] [facility] [id number] [address] [place] [id number] Oct, Diabetes mellitus without me ntion of complication, type II or unspecified type, uncontrolled 250.02 [facility] [address] [facility] [id number] [address] [place] [id number] Oct, [facility] [address] [facility] [id number] [address] [place] [address] Oct, [facility] [address] [facility] [id number] [address] [place] [address] Oct, Bipolar disorder, unspecifie d 296.80 [facility] [address] [id number] [place] [address] [id number] Sep, Dental examination V72.2 [facility] [address] [facility] [id number] [address] [place] [address] August, [facility] [address] [id number] [place] [address] [id number] August, Dental examination V72.2 [facility] [address] [id number] [address] [place] [address], [place] [address] August, [facility] [address] [id number] [address] [place] [address] 14 Jul, 2014 [facility] [address] [id number] [address] [place] [address] Jul, [facility] [address] [id number] [address] [place] [id number] 17 Jun, 2014 [facility] [address] [id number] [address] [place] [address] Jun, [facility] [address] [id number] [address] [place] [id number] Jun, [facility] [address] [id number] [address] [place] [id number] Jun, [facility] [address] [id number] [address] [place] [id number] May, [facility] [address] [id number] [address] [place] [address] May, 2014 [facility] [address] [id number] [address] [place] [id number] 16 May, 2014 [facility] [address] [id number] [address] [place] [address] 16 May, 2014 [facility] [address] [id number] [address] [place] [phone] May, 2014 [facility] [address] [id number] [address] [place] [address] May, 2014 [facility] [address] [id number] [address] [place] [id number] 16 May, 2014 [facility] [address] [id number] [address] [place] [address] 16 May, 2014 [facility] [address] [id number] [address] [place] [address], [place] [address] May, 2014 [facility] [address] [id number] [address] [place] [address], [place] [address] May, 2014 [facility] [address] [id number] [address] [place] [address], [place] [address] May, 2014 [facility] [address] [id number] [address] [place] [address], [place] [address] May, 2014 [facility] [address] [id number] [address] [place] [address], [place] [address] May, [facility] [address] [id number] [address] [place] [address], [place] [address] May, 2014 [facility] [address] [id number] [address] [place] [address], [place] [address] May, [facility] [address] [id number] [address] [place] [address], [place] [address] Apr, [facility] [address] [id number] [address] [place] [address], [place] [address] Apr, [facility] [address] [id number] [address] [place] [address], [place] [address] Apr, [facility] [address] [id number] [address] [place] [address], [place] [address] Apr, [facility] [address] [id number] [address] [place] [address], [place] [address] Apr, [facility] [address] [id number] [address] [place] [address], [place] [address] Apr, [facility] [address] [id number] [address] [place] [address], [place] [address] Apr, [facility] [address] [id number] [address] [place] [address], [place] [address] Apr, [facility] [address] [id number] [address] [place] [address], [place] [address] Apr, [facility] [address] [id number] [address] [place] [address], [place] [address] Apr, [facility] [address] [id number] [address] [place] [address], [place] [address] Apr, [facility] [address] [id number] [address] [place] [address], [place] [address] Apr, [facility] [address] [id number] [address] [place] [address], [place] [address] Mar, [facility] [address] [id number] [address] [place] [address], [place] [address] Mar, [facility] [address] [id number] [address] [place] [address], [place] [address] Mar, [facility] [address] [id number] [address] [place] [address], [place] [address] Mar, [facility] [address] [id number] [address] [place] [address], [place] [address] Mar, [facility] [address] [id number] [address] [place] [address], [place] [address] Mar, [facility] [address] [id number] [address] [place] [address], [place] [address] 13 Feb, 2014 [facility] [address] [id number] [address] [place] [address], [place] [address] Feb, [facility] [address] [id number] [address] [place] [address], [place] [address] Feb, [facility] [address] [id number] [address] [place] [address], [place] [address] 13 Feb, 2014 [facility] [address] [id number] [address] [place] [address], [place] [address] 14 Jan, 2014 [facility] [address] [id number] [address] [place] [address], [place] [address] 14 Jan, 2014 [facility] [address] [id number] [address] [place] [address], [place] [address] 14 Jan, 2014 [facility] [address] [id number] [address] [place] [address], [place] [address] 14 Jan, 2014 [facility] [address] [id number] [address] [place] [address], [place] [address] Dec, [facility] [address] [id number] [address] [place] [address], [place] [address] Dec, [facility] [address] [id number] [address] [place] [address], [place] [address] Dec, [facility] [address] [id number] [address] [place] [address], [place] [address] Dec, [facility] [address] [id number] [address] [place] [address], [place] [address] Nov, [facility] [address] [id number] [address] [place] [address], [place] [address] Nov, [facility] [address] [id number] [address] [place] [address], [place] [address] Nov, [facility] [address] [id number] [address] [place] [address], [place] [address] Nov, [facility] [address] [id number] [address] [place] [address], [place] [address] Nov, [facility] [address] [id number] [address] [place] [address], [place] [address] Nov, [facility] [address] [id number] [address] [place] [address], [place] [address] Nov, [facility] [address] [id number] [address] [place] [address], [place] [address] Oct, [facility] [address] [id number] [address] [place] [address], [place] [address] Oct, [facility] [address] [id number] [address] [place] [address], [place] [address] Oct, [facility] [address] [id number] [address] [place] [address], [place] [address] Oct, [facility] [address] [id number] [address] [place] [address], [place] [address] Oct, [facility] [address] [id number] [address] [place] [address], [place] [address] Oct, [facility] [address] [id number] [address] [place] [address], [place] [address] Oct, [facility] [address] [id number] [address] [place] [address], [place] [address] Sep, [facility] [address] [id number] [address] [place] [address], [place] [address] Sep, [facility] [address] [id number] [address] [place] [address], [place] [address] Sep, [facility] [address] [id number] [address] [place] [address], [place] [address] Sep, [facility] [address] [id number] [address] [place] [address], [place] [address] Sep, [facility] [address] [id number] [address] [place] [address], [place] [address] Jul, [facility] [address] [id number] [address] [place] [address], [place] [address] Jul, [facility] [address] [id number] [address] [place] [address], [place] [address] Jul, [facility] [address] [id number] [address] [place] [address], [place] [address] Jul, [facility] [address] [id number] [address] [place] [address], [place] [address] Jul, [facility] [address] [id number] [address] [place] [address], [place] [address] Jul, [facility] [address] [id number] [facility] [place] [address] Jul, [facility] [address] [id number] [facility] [place] [address] Jul, [facility] [address] [id number] [facility] [place] [address] Jul, [facility] [address] [id number] [address] [place] [address], [place] [address] Jul, [facility] [address] [id number] [address] [place] [address], [place] [address] Jul, [facility] [address] [id number] [address] [place] [address], [place] [address] Jul, [facility] [address] [id number] [address] [place] [address], [place] [address] Jun, [facility] [address] [id number] [address] [place] [address], [place] [address] Jun, [facility] [address] [id number] [address] [place] [address], [place] [address] Jun, [facility] [address] [id number] [address] [place] [address], [place] [address] Jun, [facility] [address] [id number] [address] [place] [address], [place] [address] Jun, [facility] [address] [id number] [address] [place] [address], [place] [address] Jun, [facility] [address] [id number] [address] [place] [address], [place] [address] Jun, [facility] [address] [id number] [address] [place] [address], [place] [address] Jun, [facility] [address] [id number] [address] [place] [address], [place] [address] May, [facility] [address] [id number] [address] [place] [address], [place] [address] May, [facility] [address] [id number] [address] [place] [address], [place] [address] May, [facility] [address] [id number] [address] [place] [address], [place] [address] May, [facility] [address] [id number] [address] [place] [address], [place] [address] May, [facility] [address] [id number] [address] [place] [address], [place] [address] May, [facility] [address] [id number] [address] [place] [address], [place] [address] May, [facility] [address] [id number] [address] [place] [address], [place] [address] May, [facility] [address] [id number] [address] [place] [address], [place] [address] Apr, [facility] [address] [id number] [address] [place] [address], [place] [address] Apr, [facility] [address] [id number] [address] [place] [address], [place] [address] Apr, [facility] [address] [id number] [address] [place] [address], [place] [address] Apr, [facility] [address] [id number] [address] [place] [address], [place] [address] Mar, [facility] [address] [id number] [address] [place] [address], [place] [address] Mar, [facility] [address] [id number] [address] [place] [address], [place] [address] Mar, [facility] [address] [id number] [address] [place] [address], [place] [address] Feb, [facility] [address] [id number] [address] [place] [address], [place] [address] Feb, [facility] [address] [id number] [address] [place] [address], [place] [address] Feb, [facility] [address] [id number] [address] [place] [address], [place] [address] Feb, [facility] [address] [id number] [address] [place] [address], [place] [address] Feb, [facility] [address] [id number] [address] [place] [address], [place] [address] Feb, [facility] [address] [id number] [address] [place] [address], [place] [address] Jan, [facility] [address] [id number] [address] [place] [address], [place] [address] Jan, [facility] [address] [id number] [address] [place] [address], [place] [address] Jan, [facility] [address] [id number] [address] [place] [address], [place] [address] Jan, [facility] [address] [id number] [address] [place] [address], [place] [address] Jan, [facility] [address] [id number] [address] [place] [address], [place] [address] Jan, [facility] [address] [id number] [address] [place] [address], [place] [address] Jan, [facility] [address] [id number] [address] [place] [address], [place] [address] 25 Dec, 2012 [facility] [address] [id number] [address] [place] [address], [place] [address] 16 Dec, 2012 [facility] [address] [id number] [address] [place] [address], [place] [address] 10 Dec, 2012 [facility] [address] [id number] [address] [place] [address], [place] [address] 05 Dec, 2012 [facility] [address] [id number] [address] [place] [address], [place] [address] Nov, [facility] [address] [id number] [address] [place] [address], [place] [address] Nov, [facility] [address] [id number] [address] [place] [address], [place] [address] Nov, [facility] [address] [id number] [address] [place] [address], [place] [address] Nov, [facility] [address] [id number] [address] [place] [address], [place] [address] Nov, [facility] [address] [id number] [address] [place] [address], [place] [address] Nov, [facility] [address] [id number] [address] [place] [address], [place] [address] Nov, [facility] [address] [id number] [address] [place] [address], [place] [address] Oct, [facility] [address] [id number] [address] [place] [address], [place] [address] Oct, [facility] [address] [id number] [address] [place] [address], [place] [address] Oct, [facility] [address] [id number] [address] [place] [address], [place] [address] Oct, [facility] [address] [id number] [address] [place] [address], [place] [address] Oct, [facility] [address] [id number] [address] [place] [address], [place] [address] Oct, [facility] [address] [id number] [address] [place] [address], [place] [address] Oct, [facility] [address] [id number] [address] [place] [address], [place] [address] Oct, [facility] [address] [id number] [address] [place] [address], [place] [address] Sep, Suleiman PEREZ [address] [id number] [id number] 30 Aug, 2012 [facility] [address] [id number] [address] [place] [address], [place] [address] August, [facility] [address] [id number] [facility] [address] Jul, [facility] [address] [id number] [address] [place] [address], [place] [address] Jul, [facility] [address] [id number] [address] [place] [address], [place] [address] Jul, [facility] [address] [id number] [address] [place] [address], [place] [address] Jul, [facility] [address] [id number] [address] [place] [address], [place] [address] Jul, [facility] [address] [id number] [address] [place] [address], [place] [address] Jul, [facility] [address] [id number] [address] [place] [address], [place] [address] 16 Jul, 2012 [facility] [address] [id number] [address] [place] [address], [place] [address] Jun, [facility] [address] [id number] [address] [place] [address], [place] [address] Jun, [facility] [address] [id number] [address] [place] [address], [place] [address] Jun, [facility] [address] [id number] [address] [place] [address], [place] [address] Jun, [facility] [address] [id number] [address] [place] [address], [place] [address] Jun, [facility] [address] [id number] [address] [place] [address], [place] [address] May, [facility] [address] [id number] [address] [place] [address], [place] [address] 18 May, 2012 [facility] [address] [id number] [address] [place] [address], [place] [address] 04 May, 2012 [facility] [address] [id number] [address] [place] [address], [place] [address] 15 Apr, 2012 [facility] [address] [id number] [address] [place] [address], [place] [address] 14 Apr, 2012 [facility] [address] [id number] [address] [place] [address], [place] [address] 07 Apr, 2012 [facility] [address] [id number] [address] [place] [address], [place] [address] Mar, [facility] [address] [id number] [address] [place] [address], [place] [address] 31 Mar, 2012 [facility] [address] [id number] [address] [place] [address], [place] [address] Mar, [facility] [address] [id number] [address] [place] [address], [place] [address] Mar, [facility] [address] [id number] [address] [place] [address], [place] [address] Mar, [facility] [address] [id number] [address] [place] [address] Mar, [facility] [address] [id number] [address] [place] [address] Feb, [facility] [address] [id number] [address] [place] [address] Feb, [facility] [address] [id number] [address] [place] [address], [place] [address] Jan, [facility] [address] [id number] [address] [place] [address], [place] [address] Jan, [facility] [address] [id number] [address] [place] [address], [place] [address] 25 Dec, 2011 [facility] [address] [id number] [address] [place] [address] Nov, [facility] [address] [id number] [address] [place] [address], [place] [address] Nov, [facility] [address] [id number] [address] [place] [address], [place] [address] Nov, [facility] [address] [id number] [address] [place] [address], [place] [address] Nov, [facility] [address] [id number] [address] [place] [address], [place] [address] Oct, [facility] [address] [id number] [address] [place] [address], [place] [address] Oct, [facility] [address] [id number] [address] [place] [address], [place] [address] Oct, [facility] [address] [id number] [address] [place] [address], [place] [address] Sep, [facility] [address] [id number] [address] [place] [address], [place] [address] Sep, [facility] [address] [id number] [address] [place] [address], [place] [address] Sep, [facility] [address] [id number] [address] [place] [address], [place] [address] August, [facility] [address] [id number] [address] [place] [address], [place] [address] August, [facility] [address] [id number] [address] [place] [address], [place] [address] Jul, [facility] [address] [id number] [address] [place] [address], [place] [address] 24 Jul, 2011 [facility] [address] [id number] [address] [place] [address], [place] [address] 17 Jul, 2011 [facility] [address] [id number] [address] [place] [address], [place] [address] Jul, [facility] [address] [id number] [address] [place] [address], [place] [address] Jun, [facility] [address] [id number] [address] [place] [address], [place] [address] 06 May, 2011 [facility] [address] [id number] [address] [place] [address], [place] [address] Apr, [facility] [address] [id number] [address] [place] [address], [place] [address] Apr, [facility] [address] [id number] [address] [place] [address], [place] [address] Apr, [facility] [address] [id number] [address] [place] [address], [place] [address] Apr, [facility] [address] [id number] [address] [place] [address], [place] [address] Apr, [facility] [address] [id number] [address] [place] [address], [place] [address] Apr, [facility] [address] [id number] [address] [place] [address], [place] [address] Mar, [facility] [address] [id number] [address] [place] [address], [place] [address] Mar, [facility] [address] [id number] [address] [place] [address], [place] [address] Feb, [facility] [address] [id number] [address] [place] [address], [place] [address] Feb, [facility] [address] [id number] [address] [place] [address], [place] [address] 17 Feb, 2011 [facility] [address] [id number] [address] [place] [address], [place] [id number] 09 Feb, 2011 [facility] [address] [id number] [address] [place] [address], [place] [address] 20 Jan, 2011 [facility] [address] [id number] [address] [place] [id number] 18 Jan, 2011 [facility] [address] [id number] [address] [place] [address], [place] [address] 18 Jan, 2011 [facility] [address] [id number] [address] [place] [address], [place] [id number] 18 Jan, 2011 [facility] [address] [id number] [address] [place] [address], [place] [address] 17 Nov, 2010 [facility] [address] [id number] [address] [place] [address], [place] [address] Mar, [facility] [address] [id number] [address] [place] [address], [place] [address] Mar, [facility] [address] [id number] [address] [place] [id number] 30 Feb, 2010 [facility] [address] [id number] [address] [place] [address], [place] [address] Feb, [facility] [address] [id number] [address] [place] [id number] Jan, [facility] [address] [id number] [address] [place] [address], [place] [address] Jan, [facility] [address] [id number] [address] [place] [id number] Sep, [facility] [address] [id number] [address] [place] [id number] 16 May, 2009 [facility] [address] [id number] [address] [place] [id number] Apr, [facility] [address] [id number] [address] [place] [address], [place] [address] Mar, [facility] [address] [id number] [address] [place] [id number] 15 Feb, 2009 [facility] [address] [id number] [address] [place] [id number] Feb, [facility] [address] [id number] [address] [place] [id number] [address], [address] [facility] [address] [facility] [id number] [address] [place] [id number] Jan, [facility] [address] [facility] [id number] [address] [place] [id number] Jan, [facility] [address] [facility] [id number] [address] [place] [id number] Jan, [facility] [address] [facility] [id number] [address] [place] [id number] Jan, [facility] [address] [facility] [id number] [address] [place] [id number] August, IMMUNIZATIONS No Known Immunizations SOCIAL HISTORY [...] 7 Hospitalization History surgery Hospitalization History [facility], [facility] tient treatment few times for BH
--- OUTSIDE RECORDS SUMMARY | 2019-09-29 10:50 | XMS REPORT ---
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 Active 67956136 Problem Open-angle glaucoma of both eyes, unspecified glaucoma stage, unspecified open-angle glaucoma type H40.10X0 Acti ve 30953654 Problem Adjustment disorder, unspecified type F43.20 Active 58729827 Problem Obstructive sleep apnea G47.33 Active 56708861 Problem Hypertensive retinopathy of both eyes H35.033 Active 7867893 Problem Type 2 diabetes mellitus with complication E11.8 Active 85984228 Problem Essential hypertension I10 Active 15142755 Problem Diabetes E11.9 Active 77284084 Problem Bipolar disorder, in partial remission, most rec ent episode manic F31.73 Active 04425046 Problem Intermittent explosive disorder in adult F63.81 Active 50554655 Problem Other diabetic neurological complication associated with type 2 diabetes mellitus E11.49 Active 132825097 Problem Depression F32.9 Active 85072595 Problem Neuropathy G62.9 Active 788694258 Problem Intermittent explosive disorder F63.81 Active 58933416 Problem Bipolar disorder, unspecified F31.9 Active 45297249 Problem Mild intellectual disability F70 A ctive 85510038 Problem Reactive airway disease, mild intermittent, uncomplicated J45.20 Active 983252673 Problem Gastroesophageal reflux disease without esophagitis K21.9 Active [id number] ALLERGIES No Information ENCOUNTERS Encounter Location Date Diagnosis [facility] [address] [facility] [id number] [address] [place] [address] Dec, [facility] [address] [facility] [id number] [address] [place] [phone] Oct, OUTREACH [facility] [id number] [place] [phone] Oct, Oral health maintenance stat us requiring routine preventive dental care K08.9 [facility] [address] [facility] [id number] [address] [place] [id number] August, Intermittent explosive disor salvatore in adult F63.81 ; Bipolar disorder, unspecified F31.9 and Mild intellectual disability F70 [facility] [address] [facility] [id number] [address] [place] [address] [id number] August, Dental caries K02.9 [facility] [address] [facility] [id number] [address] [place] [phone] Jul, Onychomycosis B35.1 ; Other diabetic neurological complication associated with type 2 diabetes mellitus E11.49 and Tinea pedis of both feet B35.3 [facility] [address] [facility] [id number] [address] [place] [address] [id number] Jul, Caries K02.9 [facility] [address] [facility] [id number] [address] [place] [address] Jul, Type 2 diabetes mellitus wit h complication E11.8 ; Tobacco abuse Z72.0 and Bipolar disorder, unspecified F31.9 [facility] [address] [facility] [id number] [address] [place] [address] Jun, [facility] [address] [facility] [id number] [address] [place] [address] [id number] Jun, Dental examination Z01.20 an d Oral health maintenance status requiring routine preventive dental care K08.9 [facility] [address] [facility] [id number] [address] [place] [address] May, Bilateral impacted cerumen H 61.23 [facility] [address] [facility] [id number] [address] [place] [phone] Apr, Bipolar disorder, unspecifie d F31.9 ; Intermittent explosive disorder in adult F63.81 ; Type 2 diabetes mellitus with complication E11.8 ; Tobacco abuse Z72.0 and Colon cancer screening Z12.11 [facility] [address] [address] Apr, Onychomycosis B35.1 and Othe r diabetic neurological complication associated with type 2 diabetes mellitus E11.49 [facility] [address] [place] [id number] [address] [place] [address] Apr, Intermittent explosive disor salvatore in adult F63.81 ; Bipolar disorder, unspecified F31.9 and Mild intellectual disability F70 [place] [address] [address] Mar, Diabetes E11.9 [facility] [address] [address] Jan, Encounter for immunization Z 23 [place] [address] [address] Jan, Tinea pedis of both feet B35 .3 ; Other diabetic neurological complication associated with type 2 diabetes mellitus E11.49 and Onychomycosis B35.1 [place] [address] [place] [id number] [address] [place] [address] Nov, Type 2 diabetes mellitus wit h complication E11.8 [place] [address] [place] [id number] [address] [place] [address] Nov, [facility] [address] [address] Oct, Intermittent explosive disor salvatore in adult F63.81 ; Bipolar disorder, unspecified F31.9 and Mild intellectual disability F70 [facility] [address] [place] [id number] [address] [place] [phone] Oct, [facility] [address] [id number] [address] [place] [address] [id number] Oct, Dental examination Z01.20 [facility] [address] [place] [id number] [address] [place] [phone] Oct, Onychomycosis B35.1 and Othe r diabetic neurological complication associated with type 2 diabetes mellitus E11.49 [place] [address] [place] [id number] [address] [place] [address] Sep, Type 2 diabetes mellitus wit h complication E11.8 and Colon cancer screening Z12.11 [place] [address] [place] [id number] [address] [place] [id number] Sep, Type 2 diabetes mellitus wit h complication E11.8 ; Colon cancer screening Z12.11 and Neuropathy G62.9 [place] [address] [place] [id number] [address] [place] [address] August, Diabetes E11.9 [facility] [address] [id number] [address] [place] [address] [phone] Jul, Dental examination Z01.20 [place] [address] [place] [id number] [address] [place] [phone] May, Mild intellectual disability F70 [place] [address] [address] May, Mild intellectual disability F70 ; High risk medication use Z79.899 ; Intermittent explosive disorder in adult F63.81 and Bipolar disorder, unspecified F31.9 [place] [address] [place] [id number] [address] [place] [phone] May, [place] [address] [place] [id number] [address] [place] [phone] May, [place] [address] [place] [id number] [address] [place] [id number] Apr, Type 2 diabetes mellitus wit h complication E11.8 ; Mild intellectual disability F70 ; Gastroesophageal reflux disease without esophagitis K21.9 ; Reactive airway disease, mild intermittent, uncomplicated J45.20 and Tobacco abuse Z72.0 [place] [address] [place] [id number] [address] [place] [phone] Apr, High risk medication use Z79 .899 ; Mild intellectual disability F70 ; Intermittent explosive disorder in adult F63.81 and Bipolar disorder, unspecified F31.9 [facility] [address] [id number] [address] [place] [address] [id number] Mar, Encounter for dental exam an d cleaning w/o abnormal findings Z01.20 [facility] [address] [id number] [address] [place] [address] [phone] Mar, Dental examination Z01.20 [facility] [address] [id number] [address] [place] [phone] 12 Jan, 2017 [facility] [address] [id number] [address] [place] [phone] Jan, [facility] [address] [id number] [address] [place] [id number] Jan, Mild intellectual disability F70 ; Bipolar disorder, unspecified F31.9 and Intermittent explosive disorder in adult F63.81 [facility] [address] [id number] [address] [place] [phone] Jan, Diabetes E11.9 [facility] [address] [id number] [address] [place] [address] [id number] Dec, Encounter for dental examina tion and cleaning without abnormal findings Z01.20 [facility] [address] [id number] [address] [place] [id number] Dec, Bipolar disorder, unspecifie d F31.9 ; Intermittent explosive disorder in adult F63.81 and Mild intellectual disability F70 [facility] [address] [id number] [address] [place] [phone] Nov, Diabetes E11.9 [facility] [address] [id number] [address] [place] [phone] Nov, [facility] [address] [id number] [address] [place] [phone] Nov, Diabetes E11.9 and Colon can cer screening Z12.[address] [id number] [id number] 21 Sep, 2016 Dental examination Z01.20 [facility] [address] [id number] [address] [place] [address] [id number] 21 Sep, 2016 Encounter for dental examina tion and cleaning without abnormal findings Z01.20 [facility] [address] [id number] [address] [place] [id number] 13 Sep, 2016 Bipolar disorder, unspecifie d F31.9 [facility] [address] [id number] [address] [place] [phone] 12 Sep, 2016 Bipolar disorder, unspecifie d F31.9 [facility] [address] [facility] [id number] [address] [place] [phone] Jul, [facility] [address] [facility] [id number] [address] [place] [phone] Jul, Type 2 diabetes mellitus wit h complication E11.8 [facility] [address] [id number] [address] [place] [address] [id number] 15 Jun, 2016 Encounter for dental examina tion and cleaning without abnormal findings Z01.[address] [id number] [id number] 15 Jun, 2016 Dental examination Z01.20 [facility] [address] [facility] [id number] [address] [place] [id number] 18 Apr, 2016 Sports physical Z02.5 [facility] [address] [id number] [address] [place] [id number] 14 Mar, 2016 Bipolar disorder, in partial remission, most recent episode manic F31.73 and Intermittent explosive disorder in adult F63.81 [facility] [address] [id number] [address] [place] [phone] 08 Mar, 2016 [facility] [address] [facility] [id number] [address] [place] [phone] Mar, Diabetes E11.9 [facility] [address] [id number] [address] [place] [address] [id number] Feb, Encounter for dental examina tion and cleaning without abnormal findings Z01.20 [facility] [address] [id number] [address] [place] [phone] 22 Dec, 2015 Nocturnal hypoxemia G47.34 a nd Encounter for immunization Z23 [facility] [address] [facility] [id number] [address] [place] [id number] 15 Dec, 2015 [facility] [address] [facility] [id number] [address] [place] [phone] Dec, [facility] [address] [facility] [id number] [address] [place] [phone] Dec, Bipolar disorder, unspecifie d F31.9 [facility] [address] [id number] [address] [place] [address] [id number] Oct, Encounter for dental examina tion and cleaning without abnormal findings Z01.20 [facility] [place] [address] [id number] [place] [address] [id number] Oct, Dental examination Z01.20 [facility] [address] [facility] [id number] [address] [place] [phone] Oct, Diabetes E11.9 [facility] [address] [facility] [id number] [address] [place] [phone] Oct, Diabetes E11.9 ; Reactive ai rway disease, mild intermittent, uncomplicated J45.20 and Tobacco abuse Z72.0 [facility] [address] [facility] [id number] [address] [place] [phone] Sep, Bipolar disorder, unspecifie d F31.9 and Depression F32.9 [facility] [address] [facility] [id number] [address] [place] [phone] Sep, [facility] [address] [facility] [id number] [address] [place] [phone] August, Tinea pedis of both feet B35 .3 and DM w/o complication type II, uncontrolled E11.65 [place] [address] [id number] Jul, [place] [address] [id number] Jul, [place] [address] [id number] Jul, Obstructive sleep apnea G47. 33 [place] [address] [id number] Jun, Diabetes E11.9 [place] [address] [address] Jun, [place] [address] [id number] Jun, [place] [address] [id number] Jun, Bipolar disorder, unspecifie d F31.9 and Mental retardation F79 [place] [address] [address] Apr, [place] [address] [id number] Feb, Diabetes E11.9 ; Encounter f or immunization Z23 ; Cough R05 and Nicotine abuse Z72.0 [place] [address] [id number] Jan, Bipolar disorder, unspecifie d F31.9 and Diabetes mellitus without mention of complication, type II or unspecified type, uncontrolled 250.02 [place] [address] [address] Jan, [place] [address] [address] Dec, Reactive airway disease 493. 90 and Enuresis 788.30 [place] [address] [id number] [address] [place] [phone] Dec, [facility] [address] [facility] [id number] [address] [place] [phone] Nov, [facility] [address] [facility] [id number] [address] [place] [phone] Nov, [facility] [address] [facility] [id number] [address] [place] [phone] Nov, Annual physical exam V70.0 ; Urinary incontinence 788.30 ; Diabetes 250.00 and Hypertension 401.9 [facility] [address] [id number] [address] [place] [phone] Oct, Diabetes mellitus without me ntion of complication, type II or unspecified type, uncontrolled 250.02 [facility] [address] [facility] [id number] [address] [place] [address] Oct, Diabetes mellitus without me ntion of complication, type II or unspecified type, uncontrolled 250.02 [facility] [address] [facility] [id number] [address] [place] [phone] Oct, Diabetes mellitus without me ntion of complication, type II or unspecified type, uncontrolled 250.02 [facility] [address] [facility] [id number] [address] [place] [id number] Oct, [facility] [address] [facility] [id number] [address] [place] [phone] Oct, [facility] [address] [facility] [id number] [address] [place] [phone] Oct, Bipolar disorder, unspecifie d 296.80 [facility] [id number] [place] [address] [id number] Sep, Dental examination V72.2 [facility] [address] [facility] [id number] [address] [place] [phone] August, [facility] [address] [id number] [place] [address] [id number] August, Dental examination V72.2 [facility] [address] [id number] [address] [place] [address], [place] [address] August, [facility] [address] [id number] [address] [place] [id number] 14 Jul, 2014 [facility] [address] [id number] [address] [place] [phone] Jul, [facility] [address] [id number] [address] [place] [phone] 17 Jun, 2014 [facility] [address] [id number] [address] [place] [id number] Jun, [facility] [address] [id number] [address] [place] [id number] Jun, [facility] [address] [id number] [address] [place] [phone] Jun, [facility] [address] [id number] [address] [place] [phone] May, [facility] [address] [id number] [address] [place] [phone] May, 2014 [facility] [address] [id number] [address] [place] [id number] 16 May, 2014 [facility] [address] [id number] [address] [place] [id number] 16 May, 2014 [facility] [address] [id number] [address] [place] [phone] May, 2014 [facility] [address] [id number] [address] [place] [phone] May, 2014 [facility] [address] [id number] [address] [place] [id number] 16 May, 2014 [facility] [address] [id number] [address] [place] [id number] 16 May, 2014 [facility] [address] [id number] [address] [place] [address], [place] [address] May, 2014 [facility] [address] [id number] [address] [place] [address], [place] [address] May, 2014 [facility] [address] [id number] [address] [place] [address], [place] [address] May, 2014 [facility] [address] [id number] [address] [place] [address], [place] [address] May, 2014 [facility] [address] [id number] [address] [place] [address], [place] [address] May, [facility] [address] [id number] [address] [place] [address], [place] [address] May, 2014 [facility] [address] [id number] [address] [place] [address], [place] [address] May, [facility] [address] [id number] [address] [place] [address], [place] [address] Apr, [facility] [address] [id number] [address] [place] [address], [place] [address] Apr, [facility] [address] [id number] [address] [place] [address], [place] [address] Apr, [facility] [address] [id number] [address] [place] [address], [place] [address] Apr, [facility] [address] [id number] [address] [place] [address], [place] [address] Apr, [facility] [address] [id number] [address] [place] [address], [place] [address] Apr, [facility] [address] [id number] [address] [place] [address], [place] [address] Apr, [facility] [address] [id number] [address] [place] [address], [place] [address] Apr, [facility] [address] [id number] [address] [place] [address], [place] [address] Apr, [facility] [address] [id number] [address] [place] [address], [place] [address] Apr, [facility] [address] [id number] [address] [place] [address], [place] [address] Apr, [facility] [address] [id number] [address] [place] [address], [place] [address] Apr, [facility] [address] [id number] [address] [place] [address], [place] [address] Mar, [facility] [address] [id number] [address] [place] [address], [place] [address] Mar, [facility] [address] [id number] [address] [place] [address], [place] [address] Mar, [facility] [address] [id number] [address] [place] [address], [place] [address] Mar, [facility] [address] [id number] [address] [place] [address], [place] [address] Mar, [facility] [address] [id number] [address] [place] [address], [place] [address] Mar, [facility] [address] [id number] [address] [place] [address], [place] [address] 13 Feb, 2014 [facility] [address] [id number] [address] [place] [address], [place] [address] Feb, [facility] [address] [id number] [address] [place] [address], [place] [address] Feb, [facility] [address] [id number] [address] [place] [address], [place] [address] 13 Feb, 2014 [facility] [address] [id number] [address] [place] [address], [place] [address] 14 Jan, 2014 [facility] [address] [id number] [address] [place] [address], [place] [address] 14 Jan, 2014 [facility] [address] [id number] [address] [place] [address], [place] [address] 14 Jan, 2014 [facility] [address] [id number] [address] [place] [address], [place] [address] 14 Jan, 2014 [facility] [address] [id number] [address] [place] [address], [place] [address] Dec, [facility] [address] [id number] [address] [place] [address], [place] [address] Dec, [facility] [address] [id number] [address] [place] [address], [place] [address] Dec, [facility] [address] [id number] [address] [place] [address], [place] [address] Dec, [facility] [address] [id number] [address] [place] [address], [place] [address] Nov, [facility] [address] [id number] [address] [place] [address], [place] [address] Nov, [facility] [address] [id number] [address] [place] [address], [place] [address] Nov, [facility] [address] [id number] [address] [place] [address], [place] [address] Nov, [facility] [address] [id number] [address] [place] [address], [place] [address] Nov, [facility] [address] [id number] [address] [place] [address], [place] [address] Nov, [facility] [address] [id number] [address] [place] [address], [place] [address] Nov, [facility] [address] [id number] [address] [place] [address], [place] [address] Oct, [facility] [address] [id number] [address] [place] [address], [place] [address] Oct, [facility] [address] [id number] [address] [place] [address], [place] [address] Oct, [facility] [address] [id number] [address] [place] [address], [place] [address] Oct, [facility] [address] [id number] [address] [place] [address], [place] [address] Oct, [facility] [address] [id number] [address] [place] [address], [place] [address] Oct, [facility] [address] [id number] [address] [place] [address], [place] [address] Oct, [facility] [address] [id number] [address] [place] [address], [place] [address] Sep, [facility] [address] [id number] [address] [place] [address], [place] [address] Sep, [facility] [address] [id number] [address] [place] [address], [place] [address] Sep, [facility] [address] [id number] [address] [place] [address], [place] [address] Sep, [facility] [address] [id number] [address] [place] [address], [place] [address] Sep, [facility] [address] [id number] [address] [place] [address], [place] [address] Jul, [facility] [address] [id number] [address] [place] [address], [place] [address] Jul, [facility] [address] [id number] [address] [place] [address], [place] [address] Jul, [facility] [address] [id number] [address] [place] [address], [place] [address] Jul, [facility] [address] [id number] [address] [place] [address], [place] [address] Jul, [facility] [address] [id number] [address] [place] [address], [place] [address] Jul, [facility] [address] [id number] [facility] [place] [address] Jul, [facility] [address] [id number] [facility] [place] [address] Jul, [facility] [address] [id number] [facility] [place] [address] Jul, [facility] [address] [id number] [address] [place] [address], [place] [address] Jul, [facility] [address] [id number] [address] [place] [address], [place] [address] Jul, [facility] [address] [id number] [address] [place] [address], [place] [address] Jul, [facility] [address] [id number] [address] [place] [address], [place] [address] Jun, [facility] [address] [id number] [address] [place] [address], [place] [address] Jun, [facility] [address] [id number] [address] [place] [address], [place] [address] Jun, [facility] [address] [id number] [address] [place] [address], [place] [address] Jun, [facility] [address] [id number] [address] [place] [address], [place] [address] Jun, [facility] [address] [id number] [address] [place] [address], [place] [address] Jun, [facility] [address] [id number] [address] [place] [address], [place] [address] Jun, [facility] [address] [id number] [address] [place] [address], [place] [address] Jun, [facility] [address] [id number] [address] [place] [address], [place] [address] May, [facility] [address] [id number] [address] [place] [address], [place] [address] May, [facility] [address] [id number] [address] [place] [address], [place] [address] May, [facility] [address] [id number] [address] [place] [address], [place] [address] May, [facility] [address] [id number] [address] [place] [address], [place] [address] May, [facility] [address] [id number] [address] [place] [address], [place] [address] May, [facility] [address] [id number] [address] [place] [address], [place] [address] May, [facility] [address] [id number] [address] [place] [address], [place] [address] May, [facility] [address] [id number] [address] [place] [address], [place] [address] Apr, [facility] [address] [id number] [address] [place] [address], [place] [address] Apr, [facility] [address] [id number] [address] [place] [address], [place] [address] Apr, [facility] [address] [id number] [address] [place] [address], [place] [address] Apr, [facility] [address] [id number] [address] [place] [address], [place] [address] Mar, [facility] [address] [id number] [address] [place] [address], [place] [address] Mar, [facility] [address] [id number] [address] [place] [address], [place] [address] Mar, [facility] [address] [id number] [address] [place] [address], [place] [address] Feb, [facility] [address] [id number] [address] [place] [address], [place] [address] Feb, [facility] [address] [id number] [address] [place] [address], [place] [address] Feb, [facility] [address] [id number] [address] [place] [address], [place] [address] Feb, [facility] [address] [id number] [address] [place] [address], [place] [address] Feb, [facility] [address] [id number] [address] [place] [address], [place] [address] Feb, [facility] [address] [id number] [address] [place] [address], [place] [address] Jan, [facility] [address] [id number] [address] [place] [address], [place] [address] Jan, [facility] [address] [id number] [address] [place] [address], [place] [address] Jan, [facility] [address] [id number] [address] [place] [address], [place] [address] Jan, [facility] [address] [id number] [address] [place] [address], [place] [address] Jan, [facility] [address] [id number] [address] [place] [address], [place] [address] Jan, [facility] [address] [id number] [address] [place] [address], [place] [address] Jan, [facility] [address] [id number] [address] [place] [address], [place] [address] 25 Dec, 2012 [facility] [address] [id number] [address] [place] [address], [place] [address] 16 Dec, 2012 [facility] [address] [id number] [address] [place] [address], [place] [address] 10 Dec, 2012 [facility] [address] [id number] [address] [place] [address], [place] [address] 05 Dec, 2012 [facility] [address] [id number] [address] [place] [address], [place] [address] Nov, [facility] [address] [id number] [address] [place] [address], [place] [address] Nov, [facility] [address] [id number] [address] [place] [address], [place] [address] Nov, [facility] [address] [id number] [address] [place] [address], [place] [address] Nov, [facility] [address] [id number] [address] [place] [address], [place] [address] Nov, [facility] [address] [id number] [address] [place] [address], [place] [address] Nov, [facility] [address] [id number] [address] [place] [address], [place] [address] Nov, [facility] [address] [id number] [address] [place] [address], [place] [address] Oct, [facility] [address] [id number] [address] [place] [address], [place] [address] Oct, [facility] [address] [id number] [address] [place] [address], [place] [address] Oct, [facility] [address] [id number] [address] [place] [address], [place] [address] Oct, [facility] [address] [id number] [address] [place] [address], [place] [address] Oct, [facility] [address] [id number] [address] [place] [address], [place] [address] Oct, [facility] [address] [id number] [address] [place] [address], [place] [address] Oct, [facility] [address] [id number] [address] [place] [address], [place] [address] Oct, [facility] [address] [id number] [address] [place] [address], [place] [address] Sep, Suleiman PEREZ [address] [facility] [address] [id number] [id number] 30 Aug, 2012 [facility] [address] [id number] [address] [place] [address], [place] [address] August, [facility] [address] [id number] [facility] [place] [address] Jul, [facility] [address] [id number] [address] [place] [address], [place] [address] Jul, [facility] [address] [id number] [address] [place] [address], [place] [address] Jul, [facility] [address] [id number] [address] [place] [address], [place] [address] Jul, [facility] [address] [id number] [address] [place] [address], [place] [address] Jul, [facility] [address] [id number] [address] [place] [address], [place] [address] Jul, [facility] [address] [id number] [address] [place] [address], [place] [address] 16 Jul, 2012 [facility] [address] [id number] [address] [place] [address], [place] [address] Jun, [facility] [address] [id number] [address] [place] [address], [place] [address] Jun, [facility] [address] [id number] [address] [place] [address], [place] [address] Jun, [facility] [address] [id number] [address] [place] [address], [place] [address] Jun, [facility] [address] [id number] [address] [place] [address], [place] [address] Jun, [facility] [address] [id number] [address] [place] [address], [place] [address] May, [facility] [address] [id number] [address] [place] [address], [place] [address] 18 May, 2012 [facility] [address] [id number] [address] [place] [address], [place] [address] 04 May, 2012 [facility] [address] [id number] [address] [place] [address], [place] [address] 15 Apr, 2012 [facility] [address] [id number] [address] [place] [address], [place] [address] 14 Apr, 2012 [facility] [address] [id number] [address] [place] [address], [place] [address] 07 Apr, 2012 [facility] [address] [id number] [address] [place] [address], [place] [address] Mar, [facility] [address] [id number] [address] [place] [address], [place] [address] 31 Mar, 2012 [facility] [address] [id number] [address] [place] [address], [place] [address] Mar, [facility] [address] [id number] [address] [place] [address], [place] [address] Mar, [facility] [address] [id number] [address] [place] [address], [place] [address] Mar, [facility] [address] [id number] [address] [place] [address] Mar, [facility] [address] [id number] [address] [place] [address] Feb, [facility] [address] [id number] [address] [place] [address] Feb, [facility] [address] [id number] [address] [place] [address], [place] [address] Jan, [facility] [address] [id number] [address] [place] [address], [place] [address] Jan, [facility] [address] [id number] [address] [place] [address], [place] [address] 25 Dec, 2011 [facility] [address] [id number] [address] [place] [address] Nov, [facility] [address] [id number] [address] [place] [address], [place] [address] Nov, [facility] [address] [id number] [address] [place] [address], [place] [address] Nov, [facility] [address] [id number] [address] [place] [address], [place] [address] Nov, [facility] [address] [id number] [address] [place] [address], [place] [address] Oct, [facility] [address] [id number] [address] [place] [address], [place] [address] Oct, [facility] [address] [id number] [address] [place] [address], [place] [address] Oct, [facility] [address] [id number] [address] [place] [address], [place] [address] Sep, [facility] [address] [id number] [address] [place] [address], [place] [address] Sep, [facility] [address] [id number] [address] [place] [address], [place] [address] Sep, [facility] [address] [id number] [address] [place] [address], [place] [address] August, [facility] [address] [id number] [address] [place] [address], [place] [address] August, [facility] [address] [id number] [address] [place] [address], [place] [address] Jul, [facility] [address] [id number] [address] [place] [address], [place] [address] 24 Jul, 2011 [facility] [address] [id number] [address] [place] [address], [place] [address] 17 Jul, 2011 [facility] [address] [id number] [address] [place] [address], [place] [address] Jul, [facility] [address] [id number] [address] [place] [address], [place] [address] Jun, [facility] [address] [id number] [address] [place] [address], [place] [address] 06 May, 2011 [facility] [address] [id number] [address] [place] [address], [place] [address] Apr, [facility] [address] [id number] [address] [place] [address], [place] [address] Apr, [facility] [address] [id number] [address] [place] [address], [place] [address] Apr, [facility] [address] [id number] [address] [place] [address], [place] [address] Apr, [facility] [address] [id number] [address] [place] [address], [place] [address] Apr, [facility] [address] [id number] [address] [place] [address], [place] [address] Apr, [facility] [address] [id number] [address] [place] [address], [place] [address] Mar, [facility] [address] [id number] [address] [place] [address], [place] [address] Mar, [facility] [address] [id number] [address] [place] [address], [place] [address] Feb, [facility] [address] [id number] [address] [place] [address], [place] [address] Feb, [facility] [address] [id number] [address] [place] [address], [place] [address] 17 Feb, 2011 [facility] [address] [id number] [address] [place] [address], [place] [address] 09 Feb, 2011 [facility] [address] [id number] [address] [place] [address], [place] [address] 20 Jan, 2011 [facility] [address] [id number] [address] [place] [address] 18 Jan, 2011 [facility] [address] [id number] [address] [place] [address], [place] [address] 18 Jan, 2011 [facility] [address] [id number] [address] [place] [address], [place] [address] 18 Jan, 2011 [facility] [address] [id number] [address] [place] [address], [place] [address] 17 Nov, 2010 [facility] [address] [id number] [address] [place] [address], [place] [id number] Mar, [facility] [address] [id number] [address] [place] [address], [place] [phone] Mar, [facility] [address] [id number] [address] [place] [id number] 30 Feb, 2010 [facility] [address] [id number] [address] [place] [address], [place] [phone] Feb, [facility] [address] [id number] [address] [place] [phone] Jan, [facility] [address] [id number] [address] [place] [address], [place] [phone] Jan, [facility] [address] [id number] [address] [place] [phone] Sep, [facility] [address] [id number] [address] [place] [id number] 16 May, 2009 [facility] [address] [id number] [address] [place] [id number] Apr, [facility] [address] [id number] [address] [place] [address], [place] [address] Mar, [facility] [address] [id number] [address] [place] [id number] 15 Feb, 2009 [facility] [address] [id number] [address] [place] [id number] Feb, [facility] [address] [id number] [address] [place] [id number] 10 Feb, 2009 [facility] [address] [facility] [id number] [address] [place] [id number] Jan, [facility] [address] [facility] [id number] [address] [place] [id number] Jan, [facility] [address] [facility] [id number] [address] [place] [id number] Jan, [facility] [address] [facility] [id number] [address] [place] [phone] Jan, [facility] [address] [facility] [id number] [address] [place] [id number] August, IMMUNIZATIONS No Known Immunizations SOCIAL HISTORY [...] age 6 Hospitalization History surgery Hospitalization History [facility], inpa tient treatment few times for BH
--- OUTSIDE RECORDS SUMMARY | 2019-09-29 10:50 | XMS REPORT ---
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 Active 15667999 Problem Open-angle glaucoma of both eyes, unspecified glaucoma stage, unspecified open-angle glaucoma type H40.10X0 Acti ve 44279555 Problem Adjustment disorder, unspecified type F43.20 Active 02240769 Problem Obstructive sleep apnea G47.33 Active 29029230 Problem Hypertensive retinopathy of both eyes H35.033 Active 0156571 Problem Type 2 diabetes mellitus with complication E11.8 Active 27356689 Problem Essential hypertension I10 Active 91524717 Problem Diabetes E11.9 Active 15345233 Problem Bipolar disorder, in partial remission, most rec ent episode manic F31.73 Active 93103449 Problem Intermittent explosive disorder in adult F63.81 Active 20127634 Problem Other diabetic neurological complication associated with type 2 diabetes mellitus E11.49 Active 814131585 Problem Depression F32.9 Active 71308697 Problem Neuropathy G62.9 Active 363499716 Problem Intermittent explosive disorder F63.81 Active 00519568 Problem Bipolar disorder, unspecified F31.9 Active 96772156 Problem Mild intellectual disability F70 A ctive 34238307 Problem Reactive airway disease, mild intermittent, uncomplicated J45.20 Active 475343213 Problem Gastroesophageal reflux disease without esophagitis K21.9 Active 641478738 ALLERGIES No Information ENCOUNTERS Encounter Location Date Diagnosis [facility] [address] [facility] [id number] [address] [place] [address] Dec, [facility] [address] [facility] [id number] [address] [place] [id number] Oct, OUTREACH [facility] [address] [place] [id number] [place] [address] Oct, Oral health maintenance stat us requiring routine preventive dental care K08.9 [facility] [address] [facility] [id number] [address] [place] [id number] August, Intermittent explosive disor salvatore in adult F63.81 ; Bipolar disorder, unspecified F31.9 and Mild intellectual disability F70 [facility] [address] [facility] [id number] [address] [place] [address] [id number] August, Dental caries K02.9 [facility] [address] [facility] [id number] [address] [place] [id number] Jul, Onychomycosis B35.1 ; Other diabetic neurological complication associated with type 2 diabetes mellitus E11.49 and Tinea pedis of both feet B35.3 [facility] [address] [facility] [id number] [address] [place] [address] [id number] Jul, Caries K02.9 [facility] [address] [facility] [id number] [address] [place] [id number] Jul, Type 2 diabetes mellitus wit h complication E11.8 ; Tobacco abuse Z72.0 and Bipolar disorder, unspecified F31.9 [facility] [address] [facility] [id number] [address] [place] [id number] Jun, [facility] [address] [facility] [id number] [address] [place] [address] [id number] Jun, Dental examination Z01.20 an d Oral health maintenance status requiring routine preventive dental care K08.9 [facility] [address] [facility] [id number] [address] [place] [id number] May, Bilateral impacted cerumen H 61.23 [facility] [address] [facility] [id number] [address] [place] [id number] Apr, Bipolar disorder, unspecifie d F31.9 ; Intermittent explosive disorder in adult F63.81 ; Type 2 diabetes mellitus with complication E11.8 ; Tobacco abuse Z72.0 and Colon cancer screening Z12.11 [facility] [address] [address] Apr, Onychomycosis B35.1 and Othe r diabetic neurological complication associated with type 2 diabetes mellitus E11.49 [facility] [address] [place] [id number] [address] [place] [address] Apr, Intermittent explosive disor salvatore in adult F63.81 ; Bipolar disorder, unspecified F31.9 and Mild intellectual disability F70 [place] [address] [address] Mar, Diabetes E11.9 [facility] [address] [address] Jan, Encounter for immunization Z 23 [place] [address] [address] Jan, Tinea pedis of both feet B35 .3 ; Other diabetic neurological complication associated with type 2 diabetes mellitus E11.49 and Onychomycosis B35.1 [place] [address] [place] [id number] [address] [place] [address] Nov, Type 2 diabetes mellitus wit h complication E11.8 [place] [address] [place] [id number] [address] [place] [phone] Nov, [facility] [address] [address] Oct, Intermittent explosive disor salvatore in adult F63.81 ; Bipolar disorder, unspecified F31.9 and Mild intellectual disability F70 [facility] [address] [place] [id number] [address] [place] [id number] Oct, [facility] [address] [place] [id number] [address] [place] [address] [id number] Oct, Dental examination Z01.20 [facility] [address] [place] [id number] [address] [place] [address] Oct, Onychomycosis B35.1 and Othe r diabetic neurological complication associated with type 2 diabetes mellitus E11.49 [place] [address] [place] [id number] [address] [place] [address] Sep, Type 2 diabetes mellitus wit h complication E11.8 and Colon cancer screening Z12.11 [place] [address] [place] [id number] [address] [place] [id number] Sep, Type 2 diabetes mellitus wit h complication E11.8 ; Colon cancer screening Z12.11 and Neuropathy G62.9 [place] [address] [place] [id number] [address] [place] [address] August, Diabetes E11.9 [facility] [address] [place] [id number] [address] [place] [address] [id number] Jul, Dental examination Z01.20 [place] [address] [place] [id number] [address] [place] [address] May, Mild intellectual disability F70 [place] [address] [address] May, Mild intellectual disability F70 ; High risk medication use Z79.899 ; Intermittent explosive disorder in adult F63.81 and Bipolar disorder, unspecified F31.9 [place] [address] [place] [id number] [address] [place] [id number] May, [place] [address] [place] [id number] [address] [place] [id number] May, [place] [address] [place] [id number] [address] [place] [address] Apr, Type 2 diabetes mellitus wit h complication E11.8 ; Mild intellectual disability F70 ; Gastroesophageal reflux disease without esophagitis K21.9 ; Reactive airway disease, mild intermittent, uncomplicated J45.20 and Tobacco abuse Z72.0 [place] [address] [place] [id number] [address] [place] [address] Apr, High risk medication use Z79 .899 ; Mild intellectual disability F70 ; Intermittent explosive disorder in adult F63.81 and Bipolar disorder, unspecified F31.9 [facility] [address] [id number] [address] [place] [address] [id number] Mar, Encounter for dental exam an d cleaning w/o abnormal findings Z01.20 [facility] [address] [id number] [address] [place] [address] [id number] Mar, Dental examination Z01.20 [facility] [address] [id number] [address] [place] [id number] 12 Jan, 2017 [facility] [address] [id number] [address] [place] [id number] Jan, [facility] [address] [id number] [address] [place] [phone] Jan, Mild intellectual disability F70 ; Bipolar disorder, unspecified F31.9 and Intermittent explosive disorder in adult F63.81 [facility] [address] [id number] [address] [place] [address] Jan, Diabetes E11.9 [facility] [address] [id number] [address] [place] [address] [id number] Dec, Encounter for dental examina tion and cleaning without abnormal findings Z01.20 [facility] [address] [id number] [address] [place] [address] Dec, Bipolar disorder, unspecifie d F31.9 ; Intermittent explosive disorder in adult F63.81 and Mild intellectual disability F70 [facility] [address] [id number] [address] [place] [address] Nov, Diabetes E11.9 [facility] [address] [id number] [address] [place] [id number] Nov, [facility] [address] [id number] [address] [place] [id number] Nov, Diabetes E11.9 and Colon can cer screening Z12.[address] [id number] [id number] 21 Sep, 2016 Dental examination Z01.20 [facility] [address] [id number] [address] [place] [address] [id number] 21 Sep, 2016 Encounter for dental examina tion and cleaning without abnormal findings Z01.20 [facility] [address] [id number] [address] [place] [id number] 13 Sep, 2016 Bipolar disorder, unspecifie d F31.9 [facility] [address] [id number] [address] [place] [id number] 12 Sep, 2016 Bipolar disorder, unspecifie d F31.9 [facility] [address] [facility] [id number] [address] [place] [address] Jul, [facility] [address] [facility] [id number] [address] [place] [address] Jul, Type 2 diabetes mellitus wit h complication E11.8 [facility] [address] [id number] [address] [place] [address] [id number] 15 Jun, 2016 Encounter for dental examina tion and cleaning without abnormal findings Z01.[address] [id number] [id number] 15 Jun, 2016 Dental examination Z01.20 [facility] [address] [facility] [id number] [address] [place] [id number] 18 Apr, 2016 Sports physical Z02.5 [facility] [address] [id number] [address] [place] [id number] 14 Mar, 2016 Bipolar disorder, in partial remission, most recent episode manic F31.73 and Intermittent explosive disorder in adult F63.81 [facility] [address] [id number] [address] [place] [id number] 08 Mar, 2016 [facility] [address] [facility] [id number] [address] [place] [address] Mar, Diabetes E11.9 [facility] [address] [id number] [address] [place] [address] [id number] Feb, Encounter for dental examina tion and cleaning without abnormal findings Z01.20 [facility] [address] [id number] [address] [place] [id number] 22 Dec, 2015 Nocturnal hypoxemia G47.34 a nd Encounter for immunization Z23 [facility] [address] [facility] [id number] [address] [place] [id number] 15 Dec, 2015 [facility] [address] [facility] [id number] [address] [place] [id number] Dec, [facility] [address] [facility] [id number] [address] [place] [id number] Dec, Bipolar disorder, unspecifie d F31.9 [facility] [address] [id number] [address] [place] [address] [id number] Oct, Encounter for dental examina tion and cleaning without abnormal findings Z01.20 [facility] [address] [id number] [place] [address] [id number] Oct, Dental examination Z01.20 [facility] [address] [facility] [id number] [address] [place] [id number] Oct, Diabetes E11.9 [facility] [address] [facility] [id number] [address] [place] [id number] Oct, Diabetes E11.9 ; Reactive ai rway disease, mild intermittent, uncomplicated J45.20 and Tobacco abuse Z72.0 [facility] [address] [facility] [id number] [address] [place] [address] Sep, Bipolar disorder, unspecifie d F31.9 and Depression F32.9 [facility] [address] [facility] [id number] [address] [place] [id number] Sep, [facility] [address] [facility] [id number] [address] [place] [address] August, Tinea pedis of both feet B35 .3 and DM w/o complication type II, uncontrolled E11.65 [place] [address] [address] Jul, [place] [address] [address] Jul, [place] [address] [address] Jul, Obstructive sleep apnea G47. 33 [place] [address] [address] Jun, Diabetes E11.9 [place] [address] [address] Jun, [place] [address] [address] Jun, [place] [address] [address] Jun, Bipolar disorder, unspecifie d F31.9 and Mental retardation F79 [place] [address] [address] Apr, [place] [address] [address] Feb, Diabetes E11.9 ; Encounter f or immunization Z23 ; Cough R05 and Nicotine abuse Z72.0 [place] [address] [address] Jan, Bipolar disorder, unspecifie d F31.9 and Diabetes mellitus without mention of complication, type II or unspecified type, uncontrolled 250.02 [place] [address] [address] Jan, [place] [address] [address] Dec, Reactive airway disease 493. 90 and Enuresis 788.30 [place] [address] [id number] [address] [place] [address] Dec, [facility] [address] [facility] [id number] [address] [place] [id number] Nov, [facility] [address] [facility] [id number] [address] [place] [id number] Nov, [facility] [address] [facility] [id number] [address] [place] [address] Nov, Annual physical exam V70.0 ; Urinary incontinence 788.30 ; Diabetes 250.00 and Hypertension 401.9 [facility] [address] [id number] [address] [place] [id number] Oct, Diabetes mellitus without me ntion of complication, type II or unspecified type, uncontrolled 250.02 [facility] [address] [facility] [id number] [address] [place] [id number] Oct, Diabetes mellitus without me ntion of complication, type II or unspecified type, uncontrolled 250.02 [facility] [address] [facility] [id number] [address] [place] [address] Oct, Diabetes mellitus without me ntion of complication, type II or unspecified type, uncontrolled 250.02 [facility] [address] [facility] [id number] [address] [place] [address] Oct, [facility] [address] [facility] [id number] [address] [place] [address] Oct, [facility] [address] [facility] [id number] [address] [place] [address] Oct, Bipolar disorder, unspecifie d 296.80 [facility] [address] [id number] [place] [address] [id number] Sep, Dental examination V72.2 [facility] [address] [facility] [id number] [address] [place] [id number] August, [facility] [address] [id number] [place] [address] [id number] August, Dental examination V72.2 [facility] [address] [id number] [address] [place] [address], [place] [address] August, [facility] [address] [id number] [address] [place] [id number] 14 Jul, 2014 [facility] [address] [id number] [address] [place] [address] Jul, [facility] [address] [id number] [address] [place] [id number] 17 Jun, 2014 [facility] [address] [id number] [address] [place] [phone] Jun, [facility] [address] [id number] [address] [place] [id number] Jun, [facility] [address] [id number] [address] [place] [id number] Jun, [facility] [address] [id number] [address] [place] [id number] May, [facility] [address] [id number] [address] [place] [phone] May, 2014 [facility] [address] [id number] [address] [place] [id number] 16 May, 2014 [facility] [address] [id number] [address] [place] [id number] 16 May, 2014 [facility] [address] [id number] [address] [place] [address] May, 2014 [facility] [address] [id number] [address] [place] [phone] May, 2014 [facility] [address] [id number] [address] [place] [id number] 16 May, 2014 [facility] [address] [id number] [address] [place] [id number] 16 May, 2014 [facility] [address] [id number] [address] [place] [address], [place] [address] May, 2014 [facility] [address] [id number] [address] [place] [address], [place] [address] May, 2014 [facility] [address] [id number] [address] [place] [address], [place] [address] May, 2014 [facility] [address] [id number] [address] [place] [address], [place] [address] May, 2014 [facility] [address] [id number] [address] [place] [address], [place] [address] May, [facility] [address] [id number] [address] [place] [address], [place] [address] May, 2014 [facility] [address] [id number] [address] [place] [address], [place] [address] May, [facility] [address] [id number] [address] [place] [address], [place] [address] Apr, [facility] [address] [id number] [address] [place] [address], [place] [address] Apr, [facility] [address] [id number] [address] [place] [address], [place] [address] Apr, [facility] [address] [id number] [address] [place] [address], [place] [address] Apr, [facility] [address] [id number] [address] [place] [address], [place] [address] Apr, [facility] [address] [id number] [address] [place] [address], [place] [address] Apr, [facility] [address] [id number] [address] [place] [address], [place] [address] Apr, [facility] [address] [id number] [address] [place] [address], [place] [address] Apr, [facility] [address] [id number] [address] [place] [address], [place] [address] Apr, [facility] [address] [id number] [address] [place] [address], [place] [address] Apr, [facility] [address] [id number] [address] [place] [address], [place] [address] Apr, [facility] [address] [id number] [address] [place] [address], [place] [address] Apr, [facility] [address] [id number] [address] [place] [address], [place] [address] Mar, [facility] [address] [id number] [address] [place] [address], [place] [address] Mar, [facility] [address] [id number] [address] [place] [address], [place] [address] Mar, [facility] [address] [id number] [address] [place] [address], [place] [address] Mar, [facility] [address] [id number] [address] [place] [address], [place] [address] Mar, [facility] [address] [id number] [address] [place] [address], [place] [address] Mar, [facility] [address] [id number] [address] [place] [address], [place] [address] 13 Feb, 2014 [facility] [address] [id number] [address] [place] [address], [place] [address] Feb, [facility] [address] [id number] [address] [place] [address], [place] [address] Feb, [facility] [address] [id number] [address] [place] [address], [place] [address] 13 Feb, 2014 [facility] [address] [id number] [address] [place] [address], [place] [address] 14 Jan, 2014 [facility] [address] [id number] [address] [place] [address], [place] [address] 14 Jan, 2014 [facility] [address] [id number] [address] [place] [address], [place] [address] 14 Jan, 2014 [facility] [address] [id number] [address] [place] [address], [place] [address] 14 Jan, 2014 [facility] [address] [id number] [address] [place] [address], [place] [address] Dec, [facility] [address] [id number] [address] [place] [address], [place] [address] Dec, [facility] [address] [id number] [address] [place] [address], [place] [address] Dec, [facility] [address] [id number] [address] [place] [address], [place] [address] Dec, [facility] [address] [id number] [address] [place] [address], [place] [address] Nov, [facility] [address] [id number] [address] [place] [address], [place] [address] Nov, [facility] [address] [id number] [address] [place] [address], [place] [address] Nov, [facility] [address] [id number] [address] [place] [address], [place] [address] Nov, [facility] [address] [id number] [address] [place] [address], [place] [address] Nov, [facility] [address] [id number] [address] [place] [address], [place] [address] Nov, [facility] [address] [id number] [address] [place] [address], [place] [address] Nov, [facility] [address] [id number] [address] [place] [address], [place] [address] Oct, [facility] [address] [id number] [address] [place] [address], [place] [address] Oct, [facility] [address] [id number] [address] [place] [address], [place] [address] Oct, [facility] [address] [id number] [address] [place] [address], [place] [address] Oct, [facility] [address] [id number] [address] [place] [address], [place] [address] Oct, [facility] [address] [id number] [address] [place] [address], [place] [address] Oct, [facility] [address] [id number] [address] [place] [address], [place] [address] Oct, [facility] [address] [id number] [address] [place] [address], [place] [address] Sep, [facility] [address] [id number] [address] [place] [address], [place] [address] Sep, [facility] [address] [id number] [address] [place] [address], [place] [address] Sep, [facility] [address] [id number] [address] [place] [address], [place] [address] Sep, [facility] [address] [id number] [address] [place] [address], [place] [address] Sep, [facility] [address] [id number] [address] [place] [address], [place] [address] Jul, [facility] [address] [id number] [address] [place] [address], [place] [address] Jul, [facility] [address] [id number] [address] [place] [address], [place] [address] Jul, [facility] [address] [id number] [address] [place] [address], [place] [address] Jul, [facility] [address] [id number] [address] [place] [address], [place] [address] Jul, [facility] [address] [id number] [address] [place] [address], [place] [address] Jul, [facility] [address] [id number] [facility] [place] [address] Jul, [facility] [address] [id number] [facility] [place] [address] Jul, [facility] [address] [id number] [facility] [place] [address] Jul, [facility] [address] [id number] [address] [place] [address], [place] [address] Jul, [facility] [address] [id number] [address] [place] [address], [place] [address] Jul, [facility] [address] [id number] [address] [place] [address], [place] [address] Jul, [facility] [address] [id number] [address] [place] [address], [place] [address] Jun, [facility] [address] [id number] [address] [place] [address], [place] [address] Jun, [facility] [address] [id number] [address] [place] [address], [place] [address] Jun, [facility] [address] [id number] [address] [place] [address], [place] [address] Jun, [facility] [address] [id number] [address] [place] [address], [place] [address] Jun, [facility] [address] [id number] [address] [place] [address], [place] [address] Jun, [facility] [address] [id number] [address] [place] [address], [place] [address] Jun, [facility] [address] [id number] [address] [place] [address], [place] [address] Jun, [facility] [address] [id number] [address] [place] [address], [place] [address] May, [facility] [address] [id number] [address] [place] [address], [place] [address] May, [facility] [address] [id number] [address] [place] [address], [place] [address] May, [facility] [address] [id number] [address] [place] [address], [place] [address] May, [facility] [address] [id number] [address] [place] [address], [place] [address] May, [facility] [address] [id number] [address] [place] [address], [place] [address] May, [facility] [address] [id number] [address] [place] [address], [place] [address] May, [facility] [address] [id number] [address] [place] [address], [place] [address] May, [facility] [address] [id number] [address] [place] [address], [place] [address] Apr, [facility] [address] [id number] [address] [place] [address], [place] [address] Apr, [facility] [address] [id number] [address] [place] [address], [place] [address] Apr, [facility] [address] [id number] [address] [place] [address], [place] [address] Apr, [facility] [address] [id number] [address] [place] [address], [place] [address] Mar, [facility] [address] [id number] [address] [place] [address], [place] [address] Mar, [facility] [address] [id number] [address] [place] [address], [place] [address] Mar, [facility] [address] [id number] [address] [place] [address], [place] [address] Feb, [facility] [address] [id number] [address] [place] [address], [place] [address] Feb, [facility] [address] [id number] [address] [place] [address], [place] [address] Feb, [facility] [address] [id number] [address] [place] [address], [place] [address] Feb, [facility] [address] [id number] [address] [place] [address], [place] [address] Feb, [facility] [address] [id number] [address] [place] [address], [place] [address] Feb, [facility] [address] [id number] [address] [place] [address], [place] [address] Jan, [facility] [address] [id number] [address] [place] [address], [place] [address] Jan, [facility] [address] [id number] [address] [place] [address], [place] [address] Jan, [facility] [address] [id number] [address] [place] [address], [place] [address] Jan, [facility] [address] [id number] [address] [place] [address], [place] [address] Jan, [facility] [address] [id number] [address] [place] [address], [place] [address] Jan, [facility] [address] [id number] [address] [place] [address], [place] [address] Jan, [facility] [address] [id number] [address] [place] [address], [place] [address] 25 Dec, 2012 [facility] [address] [id number] [address] [place] [address], [place] [address] 16 Dec, 2012 [facility] [address] [id number] [address] [place] [address], [place] [address] 10 Dec, 2012 [facility] [address] [id number] [address] [place] [address], [place] [address] 05 Dec, 2012 [facility] [address] [id number] [address] [place] [address], [place] [address] Nov, [facility] [address] [id number] [address] [place] [address], [place] [address] Nov, [facility] [address] [id number] [address] [place] [address], [place] [address] Nov, [facility] [address] [id number] [address] [place] [address], [place] [address] Nov, [facility] [address] [id number] [address] [place] [address], [place] [address] Nov, [facility] [address] [id number] [address] [place] [address], [place] [address] Nov, [facility] [address] [id number] [address] [place] [address], [place] [address] Nov, [facility] [address] [id number] [address] [place] [address], [place] [address] Oct, [facility] [address] [id number] [address] [place] [address], [place] [address] Oct, [facility] [address] [id number] [address] [place] [address], [place] [address] Oct, [facility] [address] [id number] [address] [place] [address], [place] [address] Oct, [facility] [address] [id number] [address] [place] [address], [place] [address] Oct, [facility] [address] [id number] [address] [place] [address], [place] [address] Oct, [facility] [address] [id number] [address] [place] [address], [place] [address] Oct, [facility] [address] [id number] [address] [place] [address], [place] [address] Oct, [facility] [address] [id number] [address] [place] [address], [place] [address] Sep, Suleiman PEREZ [address] [id number] [id number] 30 Aug, 2012 [facility] [address] [id number] [address] [place] [address], [place] [address] August, [facility] [address] [id number] [facility] [place] [address] Jul, [facility] [address] [id number] [address] [place] [address], [place] [address] Jul, [facility] [address] [id number] [address] [place] [address], [place] [address] Jul, [facility] [address] [id number] [address] [place] [address], [place] [address] Jul, [facility] [address] [id number] [address] [place] [address], [place] [address] Jul, [facility] [address] [id number] [address] [place] [address], [place] [address] Jul, [facility] [address] [id number] [address] [place] [address], [place] [address] 16 Jul, 2012 [facility] [address] [id number] [address] [place] [address], [place] [address] Jun, [facility] [address] [id number] [address] [place] [address], [place] [address] Jun, [facility] [address] [id number] [address] [place] [address], [place] [address] Jun, [facility] [address] [id number] [address] [place] [address], [place] [address] Jun, [facility] [address] [id number] [address] [place] [address], [place] [address] Jun, [facility] [address] [id number] [address] [place] [address], [place] [address] May, [facility] [address] [id number] [address] [place] [address], [place] [address] 18 May, 2012 [facility] [address] [id number] [address] [place] [address], [place] [address] 04 May, 2012 [facility] [address] [id number] [address] [place] [address], [place] [address] 15 Apr, 2012 [facility] [address] [id number] [address] [place] [address], [place] [address] 14 Apr, 2012 [facility] [address] [id number] [address] [place] [address], [place] [address] 07 Apr, 2012 [facility] [address] [id number] [address] [place] [address], [place] [address] Mar, [facility] [address] [id number] [address] [place] [address], [place] [address] 31 Mar, 2012 [facility] [address] [id number] [address] [place] [address], [place] [address] Mar, [facility] [address] [id number] [address] [place] [address], [place] [address] Mar, [facility] [address] [id number] [address] [place] [address], [place] [address] Mar, [facility] [address] [id number] [address] [place] [address] Mar, [facility] [address] [id number] [address] [place] [address] Feb, [facility] [address] [id number] [address] [place] [address] Feb, [facility] [address] [id number] [address] [place] [address], [place] [address] Jan, [facility] [address] [id number] [address] [place] [address], [place] [address] Jan, [facility] [address] [id number] [address] [place] [address], [place] [address] 25 Dec, 2011 [facility] [address] [id number] [address] [place] [address] Nov, [facility] [address] [id number] [address] [place] [address], [place] [address] Nov, [facility] [address] [id number] [address] [place] [address], [place] [address] Nov, [facility] [address] [id number] [address] [place] [address], [place] [address] Nov, [facility] [address] [id number] [address] [place] [address], [place] [address] Oct, [facility] [address] [id number] [address] [place] [address], [place] [address] Oct, [facility] [address] [id number] [address] [place] [address], [place] [address] Oct, [facility] [address] [id number] [address] [place] [address], [place] [address] Sep, [facility] [address] [id number] [address] [place] [address], [place] [address] Sep, [facility] [address] [id number] [address] [place] [address], [place] [address] Sep, [facility] [address] [id number] [address] [place] [address], [place] [address] August, [facility] [address] [id number] [address] [place] [address], [place] [address] August, [facility] [address] [id number] [address] [place] [address], [place] [address] Jul, [facility] [address] [id number] [address] [place] [address], [place] [address] 24 Jul, 2011 [facility] [address] [id number] [address] [place] [address], [place] [address] 17 Jul, 2011 [facility] [address] [id number] [address] [place] [address], [place] [address] Jul, [facility] [address] [id number] [address] [place] [address], [place] [address] Jun, [facility] [address] [id number] [address] [place] [address], [place] [address] 06 May, 2011 [facility] [address] [id number] [address] [place] [address], [place] [address] Apr, [facility] [address] [id number] [address] [place] [address], [place] [address] Apr, [facility] [address] [id number] [address] [place] [address], [place] [address] Apr, [facility] [address] [id number] [address] [place] [address], [place] [address] Apr, [facility] [address] [id number] [address] [place] [address], [place] [address] Apr, [facility] [address] [id number] [address] [place] [address], [place] [address] Apr, [facility] [address] [id number] [address] [place] [address], [place] [address] Mar, [facility] [address] [id number] [address] [place] [address], [place] [address] Mar, [facility] [address] [id number] [address] [place] [address], [place] [address] Feb, [facility] [address] [id number] [address] [place] [address], [place] [address] Feb, [facility] [address] [id number] [address] [place] [address], [place] [address] 17 Feb, 2011 [facility] [address] [id number] [address] [place] [address], [place] [address] 09 Feb, 2011 [facility] [address] [id number] [address] [place] [address], [place] [address] 20 Jan, 2011 [facility] [address] [id number] [address] [place] [address] 18 Jan, 2011 [facility] [address] [id number] [address] [place] [address], [place] [address] 18 Jan, 2011 [facility] [address] [id number] [address] [place] [address], [place] [address] 18 Jan, 2011 [facility] [address] [id number] [address] [place] [address], [place] [address] 17 Nov, 2010 [facility] [address] [id number] [address] [place] [address], [place] [address] Mar, [facility] [address] [id number] [address] [place] [address], [place] [address] Mar, [facility] [address] [id number] [address] [place] [id number] 30 Feb, 2010 [facility] [address] [id number] [address] [place] [address], [place] [address] Feb, [facility] [address] [id number] [address] [place] [id number] Jan, [facility] [address] [id number] [address] [place] [address], [place] [address] Jan, [facility] [address] [id number] [address] [place] [address] Sep, [facility] [address] [id number] [address] [place] [id number] 16 May, 2009 [facility] [address] [id number] [address] [place] [id number] Apr, [facility] [address] [id number] [address] [place] [address], [place] [address] Mar, [facility] [address] [id number] [address] [place] [id number] 15 Feb, 2009 [facility] [address] [id number] [address] [place] [id number] Feb, [facility] [address] [id number] [address] [place] [id number] 10 Feb, 2009 [facility] [address] [facility] [id number] [address] [place] [id number] Jan, [facility] [address] [facility] [id number] [address] [place] [id number] Jan, [facility] [address] [facility] [id number] [address] [place] [id number] Jan, [facility] [address] [facility] [id number] [address] [place] [id number] Jan, [facility] [address] [facility] [id number] [address] [place] [id number] August, IMMUNIZATIONS No Known Immunizations SOCIAL HISTORY [...] age 6 Hospitalization History surgery Hospitalization History [facility], inpa tient treatment few times for BH
--- OUTSIDE RECORDS SUMMARY | 2019-09-29 10:51 | XMS REPORT ---
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 Active 93506827 Problem Open-angle glaucoma of both eyes, unspecified glaucoma stage, unspecified open-angle glaucoma type H40.10X0 Acti ve 94603522 Problem Adjustment disorder, unspecified type F43.20 Active 29590247 Problem Obstructive sleep apnea G47.33 Active 29166226 Problem Hypertensive retinopathy of both eyes H35.033 Active 9609446 Problem Type 2 diabetes mellitus with complication E11.8 Active 35046478 Problem Essential hypertension I10 Active 04275350 Problem Diabetes E11.9 Active 43247483 Problem Bipolar disorder, in partial remission, most rec ent episode manic F31.73 Active 74839961 Problem Intermittent explosive disorder in adult F63.81 Active 46443708 Problem Other diabetic neurological complication associated with type 2 diabetes mellitus E11.49 Active 320227344 Problem Depression F32.9 Active 87347128 Problem Neuropathy G62.9 Active 691423135 Problem Intermittent explosive disorder F63.81 Active 44160660 Problem Bipolar disorder, unspecified F31.9 Active 97900452 Problem Mild intellectual disability F70 A ctive 72740647 Problem Reactive airway disease, mild intermittent, uncomplicated J45.20 Active 740699174 Problem Gastroesophageal reflux disease without esophagitis K21.9 Active 086577638 ALLERGIES No Information ENCOUNTERS Encounter Location Date Diagnosis [facility] [place] [address] [facility] [id number] [address] [place] [phone] Dec, [facility] [place] [address] [facility] [id number] [address] [place] [id number] Oct, [facility] [place] [address] [facility] [id number] [address] [place] [phone] Oct, [facility] [address] [place] [id number] [place] [phone] Oct, Oral health maintenance stat us requiring routine preventive dental care K08.9 [facility] [place] [address] [facility] [id number] [address] [place] [phone] August, Intermittent explosive disor salvatore in adult F63.81 ; Bipolar disorder, unspecified F31.9 and Mild intellectual disability F70 [facility] [address] [facility] [id number] [address] [place] [address] [phone] August, Dental caries K02.9 [facility] [place] [address] [facility] [id number] [address] [place] [phone] Jul, Onychomycosis B35.1 ; Other diabetic neurological complication associated with type 2 diabetes mellitus E11.49 and Tinea pedis of both feet B35.3 [facility] [address] [facility] [id number] [address] [place] [address] [phone] Jul, Caries K02.9 [facility] [place] [address] [facility] [id number] [address] [place] [phone] Jul, Type 2 diabetes mellitus wit h complication E11.8 ; Tobacco abuse Z72.0 and Bipolar disorder, unspecified F31.9 [facility] [place] [address] [facility] [id number] [address] [place] [phone] Jun, [facility] [address] [facility] [id number] [address] [place] [address] [phone] Jun, Dental examination Z01.20 an d Oral health maintenance status requiring routine preventive dental care K08.9 [facility] [place] [address] [facility] [id number] [address] [place] [phone] May, Bilateral impacted cerumen H 61.23 [facility] [place] [address] [facility] [id number] [address] [place] [phone] Apr, Bipolar disorder, unspecifie d F31.9 ; Intermittent explosive disorder in adult F63.81 ; Type 2 diabetes mellitus with complication E11.8 ; Tobacco abuse Z72.0 and Colon cancer screening Z12.11 [facility] [place] [address] [address] Apr, Onychomycosis B35.1 and Othe r diabetic neurological complication associated with type 2 diabetes mellitus E11.49 [facility] [place] [address] [address] Apr, Intermittent explosive disor salvatore in adult F63.81 ; Bipolar disorder, unspecified F31.9 and Mild intellectual disability F70 [place] [address] [id number] 03 Mar, 2018 Diabetes E11.9 [facility] [address] [id number] Jan, Encounter for immunization Z 23 [facility] [place] [address] [id number] Jan, Tinea pedis of both feet B35 .3 ; Other diabetic neurological complication associated with type 2 diabetes mellitus E11.49 and Onychomycosis B35.1 [place] [address] [place] [id number] [address] [place] [phone] Nov, Type 2 diabetes mellitus wit h complication E11.8 [place] [address] [place] [id number] [address] [place] [id number] Nov, [facility] [place] [address] [id number] Oct, Intermittent explosive disor salvatore in adult F63.81 ; Bipolar disorder, unspecified F31.9 and Mild intellectual disability F70 [facility] [place] [address] [place] [id number] [address] [place] [phone] Oct, [facility] [address] [place] [place] [id number] [address] [place] [address] [phone] Oct, Dental examination Z01.20 [place] [id number] [place] [phone] Oct, Onychomycosis B35.1 and Othe r diabetic neurological complication associated with type 2 diabetes mellitus E11.49 [place] [address] [place] [id number] [address] [place] [id number] Sep, Type 2 diabetes mellitus wit h complication E11.8 and Colon cancer screening Z12.11 [place] [id number] [place] [phone] Sep, Type 2 diabetes mellitus wit h complication E11.8 ; Colon cancer screening Z12.11 and Neuropathy G62.9 [place] [address] [place] [id number] [place] [phone] August, Diabetes E11.9 [facility] [address] [place] [id number] [address] [place] [address] [phone] Jul, Dental examination Z01.20 [place] [id number] [place] [phone] 27 May, 2017 Mild intellectual disability F70 [place] [address] [id number] 07 May, 2017 Mild intellectual disability F70 ; High risk medication use Z79.899 ; Intermittent explosive disorder in adult F63.81 and Bipolar disorder, unspecified F31.9 [place] [address] [place] [id number] [place] [phone] May, [place] [address] [place] [id number] [address] [place] [id number] May, [place] [address] [place] [id number] [place] [phone] Apr, Type 2 diabetes mellitus wit h complication E11.8 ; Mild intellectual disability F70 ; Gastroesophageal reflux disease without esophagitis K21.9 ; Reactive airway disease, mild intermittent, uncomplicated J45.20 and Tobacco abuse Z72.0 [place] [address] [place] [id number] [place] [phone] Apr, High risk medication use Z79 .899 ; Mild intellectual disability F70 ; Intermittent explosive disorder in adult F63.81 and Bipolar disorder, unspecified F31.9 [facility] [address] [id number] [address] [place] [address] [phone] Mar, Dental examination Z01.20 [facility] [address] [id number] [address] [place] [address] [phone] Mar, Encounter for dental exam an d cleaning w/o abnormal findings Z01.20 [facility] [place] [address] [id number] [address] [place] [phone] 12 Jan, 2017 [facility] [place] [address] [id number] [address] [place] [phone] Jan, [facility] [place] [address] [id number] [address] [place] [phone] Jan, Mild intellectual disability F70 ; Bipolar disorder, unspecified F31.9 and Intermittent explosive disorder in adult F63.81 [facility] [place] [address] [id number] [address] [place] [phone] 02 Jan, 2017 Diabetes E11.9 [facility] [address] [id number] [address] [place] [address] [phone] 13 Dec, 2016 Encounter for dental examina tion and cleaning without abnormal findings Z01.20 [facility] [place] [address] [id number] [address] [place] [id number] 12 Dec, 2016 Bipolar disorder, unspecifie d F31.9 ; Intermittent explosive disorder in adult F63.81 and Mild intellectual disability F70 [facility] [place] [address] [id number] [address] [place] [phone] Nov, Diabetes E11.9 [facility] [place] [address] [id number] [address] [place] [id number] Nov, [facility] [place] [address] [id number] [address] [place] [id number] Nov, Diabetes E11.9 and Colon can cer screening Z12.11 [place] [id number] [facility] [id number] [id number] 21 Sep, 2016 Dental examination Z01.20 [facility] [address] [id number] [address] [place] [address] [phone] 21 Sep, 2016 Encounter for dental examina tion and cleaning without abnormal findings Z01.20 [facility] [place] [address] [id number] [address] [place] [id number] 13 Sep, 2016 Bipolar disorder, unspecifie d F31.9 [facility] [place] [address] [id number] [address] [place] [id number] 12 Sep, 2016 Bipolar disorder, unspecifie d F31.9 [facility] [place] [address] [facility] [id number] [address] [place] [id number] Jul, [facility] [place] [address] [facility] [id number] [address] [place] [id number] Jul, Type 2 diabetes mellitus wit h complication E11.[address] [id number] [id number] 15 Jun, 2016 Dental examination Z01.20 [facility] [address] [id number] [address] [place] [address] [id number] 15 Jun, 2016 Encounter for dental examina tion and cleaning without abnormal findings Z01.20 [facility] [place] [address] [facility] [id number] [address] [place] [phone] 18 Apr, 2016 Sports physical Z02.5 [facility] [place] [address] [facility] [id number] [address] [place] [phone] 14 Mar, 2016 Bipolar disorder, in partial remission, most recent episode manic F31.73 and Intermittent explosive disorder in adult F63.81 [facility] [place] [address] [facility] [id number] [address] [place] [phone] 08 Mar, 2016 [facility] [place] [address] [facility] [id number] [address] [place] [phone] Mar, Diabetes E11.9 [facility] [address] [id number] [address] [place] [address] [id number] Feb, Encounter for dental examina tion and cleaning without abnormal findings Z01.20 [facility] [place] [address] [id number] [address] [place] [phone] 22 Dec, 2015 Nocturnal hypoxemia G47.34 a nd Encounter for immunization Z23 [facility] [place] [address] [facility] [id number] [address] [place] [id number] 15 Dec, 2015 [facility] [place] [address] [facility] [id number] [address] [place] [phone] Dec, [facility] [place] [address] [facility] [id number] [address] [place] [phone] Dec, Bipolar disorder, unspecifie d F31.9 [facility] [address] [id number] [address] [place] [address] [id number] Oct, Encounter for dental examina tion and cleaning without abnormal findings Z01.20 [place] [id number] [id number] [place] [address] [id number] Oct, Dental examination Z01.20 [facility] [place] [address] [facility] [id number] [address] [place] [phone] Oct, Diabetes E11.9 [facility] [place] [address] [facility] [id number] [address] [place] [id number] Oct, Diabetes E11.9 ; Reactive ai rway disease, mild intermittent, uncomplicated J45.20 and Tobacco abuse Z72.0 [facility] [place] [address] [facility] [id number] [address] [place] [phone] Sep, Bipolar disorder, unspecifie d F31.9 and Depression F32.9 [facility] [place] [address] [facility] [id number] [address] [place] [phone] Sep, [facility] [place] [address] [facility] [id number] [address] [place] [phone] 20 May, 2016 Tinea pedis of both feet B35 .3 and DM w/o complication type II, uncontrolled E11.65 [place] [address] [id number] Jul, [place] [address] [id number] Jul, [place] [address] [id number] Jul, Obstructive sleep apnea G47. 33 [place] [address] [id number] Jun, Diabetes E11.9 [place] [address] [id number] Jun, [place] [address] [id number] Jun, [place] [address] [address] Jun, Bipolar disorder, unspecifie d F31.9 and Mental retardation F79 [place] [address] [id number] Apr, [place] [address] [id number] Feb, Diabetes E11.9 ; Encounter f or immunization Z23 ; Cough R05 and Nicotine abuse Z72.0 [place] [address] [id number] Jan, Bipolar disorder, unspecifie d F31.9 and Diabetes mellitus without mention of complication, type II or unspecified type, uncontrolled 250.02 [place] [address] [id number] Jan, [place] [address] [id number] Dec, Reactive airway disease 493. 90 and Enuresis 788.30 [place] [address] [id number] [address] [place] [id number] Dec, [facility] [place] [address] [facility] [id number] [address] [place] [id number] Nov, [facility] [place] [address] [facility] [id number] [address] [place] [phone] Nov, [facility] [place] [address] [facility] [id number] [place] [phone] Nov, Annual physical exam V70.0 ; Urinary incontinence 788.30 ; Diabetes 250.00 and Hypertension 401.9 [facility] [place] [address] [facility] [id number] [address] [place] [id number] Oct, Diabetes mellitus without me ntion of complication, type II or unspecified type, uncontrolled 250.02 [facility] [place] [address] [facility] [id number] [address] [place] [id number] Oct, Diabetes mellitus without me ntion of complication, type II or unspecified type, uncontrolled 250.02 [facility] [place] [address] [place] [id number] [address] [place] [id number] Oct, Diabetes mellitus without me ntion of complication, type II or unspecified type, uncontrolled 250.02 [facility] [place] [address] [place] [id number] [address] [place] [phone] Oct, [facility] [place] [address] [place] [id number] [address] [place] [id number] Oct, [facility] [place] [address] [facility] [id number] [address] [place] [id number] Oct, Bipolar disorder, unspecifie d 296.80 [facility] [id number] [place] [address] [id number] Sep, Dental examination V72.2 [facility] [place] [address] [facility] [id number] [address] [place] [phone] August, [facility] [address] [place] [id number] [place] [address] [id number] August, Dental examination V72.2 [facility] [address] [id number] [address] [place] [phone] August, [facility] [address] [id number] [address] [place] [id number] 14 Jul, 2014 [facility] [address] [id number] [address] [place] [id number] Jul, [facility] [address] [id number] [address] [place] [id number] 17 Jun, 2014 [facility] [address] [id number] [address] [place] [phone] Jun, [facility] [address] [id number] [address] [place] [id number] Jun, [facility] [address] [id number] [address] [place] [id number] Jun, [facility] [address] [id number] [address] [place] [id number] May, [facility] [address] [id number] [address] [place] [id number] 23 May, 2014 [facility] [address] [id number] [address] [place] [id number] 16 May, 2014 [facility] [address] [id number] [address] [place] [phone] 16 May, 2014 [facility] [address] [id number] [address] [place] [id number] 16 May, 2014 [facility] [address] [id number] [address] [place] [id number] 16 May, 2014 [facility] [address] [id number] [address] [place] [id number] 16 May, 2014 [facility] [address] [id number] [address] [place] [phone] May, 2014 [facility] [address] [id number] [facility] [address] May, [facility] [address] [id number] [address] [place] [address], [place] [phone] May, 2014 [facility] [address] [id number] [address] [place] [address], [place] [address] May, 2014 [facility] [address] [id number] [address] [place] [address], [place] [address] May, 2014 [facility] [address] [id number] [address] [place] [address], [place] [address] May, [facility] [address] [id number] [address] [place] [address], [place] [phone] May, 2014 [facility] [address] [id number] [address] [place] [address], [place] [address] May, [facility] [address] [id number] [address] [place] [address], [place] [address] Apr, [facility] [address] [id number] [address] [place] [address], [place] [id number] Apr, [facility] [address] [id number] [address] [place] [address], [place] [address] Apr, [facility] [address] [id number] [address] [place] [address], [place] [address] Apr, [facility] [address] [id number] [address] [place] [address], [place] [id number] Apr, [facility] [address] [id number] [address] [place] [address], [place] [address] Apr, [facility] [address] [id number] [address] [place] [address], [place] [address] Apr, [facility] [address] [id number] [address] [place] [address], [place] [address] Apr, [facility] [address] [id number] [address] [place] [address], [place] [address] Apr, [facility] [address] [id number] [address] [place] [address], [place] [address] Apr, [facility] [address] [id number] [address] [place] [address], [place] [address] Apr, [facility] [address] [id number] [address] [place] [address], [place] [id number] Apr, [facility] [address] [id number] [address] [place] [address], [place] [address] Mar, [facility] [address] [id number] [address] [place] [address], [place] [address] Mar, [facility] [address] [id number] [address] [place] [address], [place] [id number] Mar, [facility] [address] [id number] [address] [place] [address], [place] [address] Mar, [facility] [address] [id number] [address] [place] [address], [place] [address] Mar, [facility] [address] [id number] [address] [place] [address], [place] [id number] Mar, [facility] [address] [id number] [address] [place] [address], [place] [address] 13 Feb, 2014 [facility] [address] [id number] [address] [place] [address], [place] [address] Feb, [facility] [address] [id number] [address] [place] [address], [place] [address] Feb, [facility] [address] [id number] [address] [place] [address], [place] [id number] 13 Feb, 2014 [facility] [address] [id number] [address] [place] [address], [place] [address] 14 Jan, 2014 [facility] [address] [id number] [address] [place] [address], [place] [address] 14 Jan, 2014 [facility] [address] [id number] [address] [place] [address], [place] [address] 14 Jan, 2014 [facility] [address] [id number] [address] [place] [address], [place] [address] Jan, [facility] [address] [id number] [address] [place] [address], [place] [address] Dec, [facility] [address] [id number] [address] [place] [address], [place] [address] Dec, [facility] [address] [id number] [address] [place] [address], [place] [address] Dec, [facility] [address] [id number] [address] [place] [address], [place] [address] Dec, [facility] [address] [id number] [address] [place] [address], [place] [address] Nov, [facility] [address] [id number] [address] [place] [address], [place] [address] Nov, [facility] [address] [id number] [address] [place] [address], [place] [address] Nov, [facility] [address] [id number] [address] [place] [address], [place] [address] Nov, [facility] [address] [id number] [address] [place] [address], [place] [address] Nov, [facility] [address] [id number] [address] [place] [address], [place] [address] Nov, [facility] [address] [id number] [address] [place] [address], [place] [address] Nov, [facility] [address] [id number] [address] [place] [address], [place] [address] Oct, [facility] [address] [id number] [address] [place] [address], [place] [address] Oct, [facility] [address] [id number] [address] [place] [address], [place] [address] Oct, [facility] [address] [id number] [facility] [address] Oct, [facility] [address] [id number] [address] [place] [address], [place] [address] Oct, [facility] [address] [id number] [address] [place] [address], [place] [address] Oct, [facility] [address] [id number] [address] [place] [address], [place] [address] Oct, [facility] [address] [id number] [address] [place] [address], [place] [address] Sep, [facility] [address] [id number] [address] [place] [address], [place] [address] Sep, [facility] [address] [id number] [address] [place] [address], [place] [address] Sep, [facility] [address] [id number] [address] [place] [address], [place] [address] Sep, [facility] [address] [id number] [address] [place] [address], [place] [address] Sep, [facility] [address] [id number] [address] [place] [address], [place] [address] Jul, [facility] [address] [id number] [address] [place] [address], [place] [address] Jul, [facility] [address] [id number] [address] [place] [address], [place] [address] Jul, [facility] [address] [id number] [address] [place] [address], [place] [address] Jul, [facility] [address] [id number] [address] [place] [address], [place] [address] Jul, [facility] [address] [id number] [address] [place] [address], [place] [address] Jul, [facility] [address] [id number] [facility] [address] Jul, [facility] [address] [id number] [facility] [address] Jul, [facility] [address] [id number] [facility] [address] Jul, [facility] [address] [id number] [facility] [address] Jul, [facility] [address] [id number] [facility] [address] Jul, [facility] [address] [id number] [address] [place] [address], [place] [address] Jul, [facility] [address] [id number] [address] [place] [address], [place] [address] Jun, [facility] [address] [id number] [address] [place] [address], [place] [address] Jun, [facility] [address] [id number] [address] [place] [address], [place] [address] Jun, [facility] [address] [id number] [address] [place] [address], [place] [address] Jun, [facility] [address] [id number] [address] [place] [address], [place] [address] Jun, [facility] [address] [id number] [address] [place] [address], [place] [address] Jun, [facility] [address] [id number] [address] [place] [address], [place] [address] Jun, [facility] [address] [id number] [address] [place] [address], [place] [address] Jun, [facility] [address] [id number] [address] [place] [address], [place] [address] May, [facility] [address] [id number] [address] [place] [address], [place] [address] May, [facility] [address] [id number] [address] [place] [address], [place] [address] May, [facility] [address] [id number] [address] [place] [address], [place] [address] May, [facility] [address] [id number] [address] [place] [address], [place] [address] May, [facility] [address] [id number] [address] [place] [address], [place] [address] May, [facility] [address] [id number] [address] [place] [address], [place] [address] May, [facility] [address] [id number] [address] [place] [address], [place] [address] May, [facility] [address] [id number] [address] [place] [address], [place] [address] Apr, [facility] [address] [id number] [address] [place] [address], [place] [address] Apr, [facility] [address] [id number] [address] [place] [address], [place] [address] Apr, [facility] [address] [id number] [address] [place] [address], [place] [address] Apr, [facility] [address] [id number] [address] [place] [address], [place] [address] Mar, [facility] [address] [id number] [address] [place] [address], [place] [address] Mar, [facility] [address] [id number] [address] [place] [address], [place] [address] Mar, [facility] [address] [id number] [address] [place] [address], [place] [address] Feb, [facility] [address] [id number] [address] [place] [address], [place] [address] Feb, [facility] [address] [id number] [address] [place] [address], [place] [address] Feb, [facility] [address] [id number] [address] [place] [address], [place] [address] Feb, [facility] [address] [id number] [address] [place] [address], [place] [address] Feb, [facility] [address] [id number] [address] [place] [address], [place] [address] Feb, [facility] [address] [id number] [address] [place] [address], [place] [address] Jan, [facility] [address] [id number] [address] [place] [address], [place] [address] Jan, [facility] [address] [id number] [address] [place] [address], [place] [address] Jan, [facility] [address] [id number] [address] [place] [address], [place] [address] Jan, [facility] [address] [id number] [address] [place] [address], [place] [address] Jan, [facility] [address] [id number] [address] [place] [address], [place] [address] Jan, [facility] [address] [id number] [address] [place] [address], [place] [address] Jan, [facility] [address] [id number] [address] [place] [address], [place] [address] 25 Dec, 2012 [facility] [address] [id number] [address] [place] [address], [place] [address] 16 Dec, 2012 [facility] [address] [id number] [address] [place] [address], [place] [address] 10 Dec, 2012 [facility] [address] [id number] [address] [place] [address], [place] [address] 05 Dec, 2012 [facility] [address] [id number] [address] [place] [address], [place] [address] Nov, [facility] [address] [id number] [address] [place] [address], [place] [address] Nov, [facility] [address] [id number] [address] [place] [address], [place] [address] Nov, [facility] [address] [id number] [address] [place] [address], [place] [address] Nov, [facility] [address] [id number] [address] [place] [address], [place] [address] Nov, [facility] [address] [id number] [address] [place] [address], [place] [address] Nov, [facility] [address] [id number] [address] [place] [address], [place] [address] Nov, [facility] [address] [id number] [address] [place] [address], [place] [address] Oct, [facility] [address] [id number] [address] [place] [address], [place] [address] Oct, [facility] [address] [id number] [address] [place] [address], [place] [address] Oct, [facility] [address] [id number] [address] [place] [address], [place] [address] Oct, [facility] [address] [id number] [address] [place] [address], [place] [address] Oct, [facility] [address] [id number] [address] [place] [address], [place] [address] Oct, [facility] [address] [id number] [address] [place] [address], [place] [address] Oct, [facility] [address] [id number] [address] [place] [address], [place] [address] Oct, [facility] [address] [id number] [address] [place] [address], [place] [address] Sep, Suleiman PEREZ [address] [id number] [id number] 30 Aug, 2012 [facility] [address] [id number] [address] [place] [address], [place] [address] August, [facility] [address] [id number] [address] [place] [address], [place] [address] Jul, [facility] [address] [id number] [address] [place] [address], [place] [address] Jul, [facility] [address] [id number] [address] [place] [address], [place] [address] Jul, [facility] [address] [id number] [address] [place] [address], [place] [address] Jul, [facility] [address] [id number] [address] [place] [address], [place] [address] Jul, [facility] [address] [id number] [address] [place] [address], [place] [address] Jul, [facility] [address] [id number] [address] [place] [address], [place] [address] 16 Jul, 2012 [facility] [address] [id number] [address] [place] [address], [place] [address] Jun, [facility] [address] [id number] [address] [place] [address], [place] [address] Jun, [facility] [address] [id number] [address] [place] [address], [place] [address] Jun, [facility] [address] [id number] [address] [place] [address], [place] [address] Jun, [facility] [address] [id number] [address] [place] [address], [place] [address] Jun, [facility] [address] [id number] [address] [place] [address], [place] [address] 19 May, 2012 [facility] [address] [id number] [address] [place] [address], [place] [address] 18 May, 2012 [facility] [address] [id number] [address] [place] [address], [place] [address] 04 May, 2012 [facility] [address] [id number] [address] [place] [address], [place] [address] 15 Apr, 2012 [facility] [address] [id number] [address] [place] [address], [place] [address] 14 Apr, 2012 [facility] [address] [id number] [address] [place] [address], [place] [address] 07 Apr, 2012 [facility] [address] [id number] [address] [place] [address], [place] [address] Mar, [facility] [address] [id number] [address] [place] [address], [place] [address] 31 Mar, 2012 [facility] [address] [id number] [address] [place] [address], [place] [address] Mar, [facility] [address] [id number] [address] [place] [address], [place] [address] Mar, [facility] [address] [id number] [address] [place] [address], [place] [address] Mar, [facility] [address] [id number] [address] [place] [address], [place] [address] Mar, [facility] [address] [id number] [address] [place] [address], [place] [address] Feb, [facility] [address] [id number] [address] [place] [address] Feb, [facility] [address] [id number] [address] [place] [address], [place] [address] Jan, [facility] [address] [id number] [address] [place] [address], [place] [address] Jan, [facility] [address] [id number] [address] [place] [address], [place] [address] Dec, [facility] [address] [id number] [address] [place] [address], [place] [address] Nov, [facility] [address] [id number] [address] [place] [address], [place] [address] Nov, [facility] [address] [id number] [address] [place] [address], [place] [address] Nov, [facility] [address] [id number] [address] [place] [address], [place] [address] Nov, [facility] [address] [id number] [address] [place] [address], [place] [address] Oct, [facility] [address] [id number] [address] [place] [address], [place] [address] Oct, [facility] [address] [id number] [address] [place] [address], [place] [address] Oct, [facility] [address] [id number] [address] [place] [address], [place] [address] Sep, [facility] [address] [id number] [address] [place] [address], [place] [address] Sep, [facility] [address] [id number] [address] [place] [address], [place] [address] Sep, [facility] [address] [id number] [address] [place] [address], [place] [address] August, [facility] [address] [id number] [address] [place] [address], [place] [address] August, [facility] [address] [id number] [address] [place] [address], [place] [address] Jul, [facility] [address] [id number] [address] [place] [address], [place] [address] 24 Jul, 2011 [facility] [address] [id number] [address] [place] [address], [place] [address] Jul, [facility] [address] [id number] [address] [place] [address], [place] [address] Jul, [facility] [address] [id number] [address] [place] [address], [place] [address] Jun, [facility] [address] [id number] [address] [place] [address], [place] [address] May, [facility] [address] [id number] [address] [place] [address], [place] [address] Apr, [facility] [address] [id number] [address] [place] [address], [place] [address] Apr, [facility] [address] [id number] [address] [place] [address], [place] [address] Apr, [facility] [address] [id number] [address] [place] [address], [place] [address] Apr, [facility] [address] [id number] [address] [place] [address], [place] [address] Apr, [facility] [address] [id number] [address] [place] [address], [place] [address] Apr, [facility] [address] [id number] [address] [place] [address], [place] [address] Mar, [facility] [address] [id number] [address] [place] [address], [place] [address] Mar, [facility] [address] [id number] [address] [place] [address], [place] [address] Feb, [facility] [address] [id number] [address] [place] [address], [place] [address] Feb, [facility] [address] [id number] [address] [place] [address], [place] [address] 17 Feb, 2011 [facility] [address] [id number] [address] [place] [address], [place] [address] 09 Feb, 2011 [facility] [address] [id number] [address] [place] [address], [place] [address] 20 Jan, 2011 [facility] [address] [id number] [address] [place] [address], [place] [address] 18 Jan, 2011 [facility] [address] [id number] [address] [place] [address], [place] [address] 18 Jan, 2011 [facility] [address] [id number] [address] [place] [address], [place] [address] 18 Jan, 2011 [facility] [address] [id number] [address] [place] [address], [place] [id number] 17 Nov, 2010 [facility] [address] [id number] [address] [place] [phone] Mar, [facility] [address] [id number] [address] [place] [address], [place] [id number] Mar, [facility] [address] [id number] [address] [place] [phone] 30 Feb, 2010 [facility] [address] [id number] [address] [place] [address], [place] [phone] Feb, [facility] [address] [id number] [address] [place] [address], [place] [phone] Jan, [facility] [address] [id number] [address] [place] [address], [place] [phone] Jan, [facility] [address] [id number] [address] [place] [phone] Sep, [facility] [address] [id number] [address] [place] [phone] May, [facility] [address] [id number] [address] [place] [phone] Apr, [facility] [address] [id number] [address] [place] [address], [place] [id number] Mar, [facility] [address] [id number] [address] [place] [phone] 15 Feb, 2009 [facility] [address] [id number] [address] [place] [phone] Feb, [facility] [address] [id number] [address] [place] [phone] 10 Feb, 2009 [facility] [place] [address] [facility] [id number] [address] [place] [id number] 22 Jan, 2009 [facility] [place] [address] [facility] [id number] [address] [place] [phone] Jan, [facility] [place] [address] [facility] [id number] [address] [place] [phone] Jan, [facility] [place] [address] [facility] [id number] [address] [place] [id number] Jan, [facility] [place] [address] [facility] [id number] [address] [place] [phone] August, IMMUNIZATIONS No Known Immunizations SOCIAL HISTORY [...] age 6 Hospitalization History surgery Hospitalization History [facility], in[place] tie treatment few times for BH
--- OUTSIDE RECORDS SUMMARY | 2019-09-29 10:51 | XMS REPORT ---
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 Active 20348471 Problem Open-angle glaucoma of both eyes, unspecified glaucoma stage, unspecified open-angle glaucoma type H40.10X0 Acti ve 41304095 Problem Adjustment disorder, unspecified type F43.20 Active 43241779 Problem Obstructive sleep apnea G47.33 Active 51643044 Problem Hypertensive retinopathy of both eyes H35.033 Active 4025208 Problem Type 2 diabetes mellitus with complication E11.8 Active 26535625 Problem Essential hypertension I10 Active 61757926 Problem Diabetes E11.9 Active 11583949 Problem Bipolar disorder, in partial remission, most rec ent episode manic F31.73 Active 82014874 Problem Intermittent explosive disorder in adult F63.81 Active 77435398 Problem Other diabetic neurological complication associated with type 2 diabetes mellitus E11.49 Active 348050267 Problem Depression F32.9 Active 99423283 Problem Neuropathy G62.9 Active 945806874 Problem Intermittent explosive disorder F63.81 Active 27944806 Problem Bipolar disorder, unspecified F31.9 Active 21943617 Problem Mild intellectual disability F70 A ctive 87643263 Problem Reactive airway disease, mild intermittent, uncomplicated J45.20 Active 725216114 Problem Gastroesophageal reflux disease without esophagitis K21.9 Active 326546726 ALLERGIES No Information ENCOUNTERS Encounter Location Date Diagnosis [facility] [address] [facility] [id number] [address] [place] [address] Dec, [facility] [address] [facility] [id number] [address] [place] [id number] Oct, OUTREACH [facility] [address] [place] [id number] [place] [address] Oct, Oral health maintenance stat us requiring routine preventive dental care K08.9 [facility] [address] [facility] [id number] [address] [place] [address] August, Intermittent explosive disor salvatore in adult F63.81 ; Bipolar disorder, unspecified F31.9 and Mild intellectual disability F70 [facility] [address] [facility] [id number] [address] [place] [address] [id number] August, Dental caries K02.9 [facility] [address] [facility] [id number] [address] [place] [address] Jul, Onychomycosis B35.1 ; Other diabetic neurological complication associated with type 2 diabetes mellitus E11.49 and Tinea pedis of both feet B35.3 [facility] [address] [facility] [id number] [address] [place] [address] [id number] Jul, Caries K02.9 [facility] [address] [facility] [id number] [address] [place] [address] Jul, Type 2 diabetes mellitus wit h complication E11.8 ; Tobacco abuse Z72.0 and Bipolar disorder, unspecified F31.9 [facility] [address] [facility] [id number] [address] [place] [address] Jun, [facility] [address] [facility] [id number] [address] [place] [address] [id number] Jun, Dental examination Z01.20 an d Oral health maintenance status requiring routine preventive dental care K08.9 [facility] [address] [facility] [id number] [address] [place] [address] May, Bilateral impacted cerumen H 61.23 [facility] [address] [facility] [id number] [address] [place] [address] Apr, Bipolar disorder, unspecifie d F31.9 ; Intermittent explosive disorder in adult F63.81 ; Type 2 diabetes mellitus with complication E11.8 ; Tobacco abuse Z72.0 and Colon cancer screening Z12.11 [facility] [address] [address] Apr, Onychomycosis B35.1 and Othe r diabetic neurological complication associated with type 2 diabetes mellitus E11.49 [facility] [address] [place] [id number] [address] [place] [address] Apr, Intermittent explosive disor salvatore in adult F63.81 ; Bipolar disorder, unspecified F31.9 and Mild intellectual disability F70 [place] [address] [address] Mar, Diabetes E11.9 [facility] [address] [address] Jan, Encounter for immunization Z 23 [place] [address] [address] Jan, Tinea pedis of both feet B35 .3 ; Other diabetic neurological complication associated with type 2 diabetes mellitus E11.49 and Onychomycosis B35.1 [place] [address] [place] [id number] [address] [place] [address] Nov, Type 2 diabetes mellitus wit h complication E11.8 [place] [address] [place] [id number] [place] [address] Nov, [facility] [address] [address] Oct, Intermittent explosive disor salvatore in adult F63.81 ; Bipolar disorder, unspecified F31.9 and Mild intellectual disability F70 [facility] [address] [place] [id number] [address] [place] [address] Oct, [facility] [address] [place] [id number] [address] [place] [address] [id number] Oct, Dental examination Z01.20 [facility] [address] [place] [id number] [address] [place] [address] Oct, Onychomycosis B35.1 and Othe r diabetic neurological complication associated with type 2 diabetes mellitus E11.49 [place] [address] [place] [id number] [place] [address] Sep, Type 2 diabetes mellitus wit h complication E11.8 and Colon cancer screening Z12.11 [place] [address] [place] [id number] [place] [address] Sep, Type 2 diabetes mellitus wit h complication E11.8 ; Colon cancer screening Z12.11 and Neuropathy G62.9 [place] [address] [place] [id number] [place] [address] August, Diabetes E11.9 [facility] [address] [place] [id number] [address] [place] [address] [id number] Jul, Dental examination Z01.20 [place] [address] [place] [id number] [place] [address] May, Mild intellectual disability F70 [place] [address] [address] May, Mild intellectual disability F70 ; High risk medication use Z79.899 ; Intermittent explosive disorder in adult F63.81 and Bipolar disorder, unspecified F31.9 [place] [address] [place] [id number] [place] [address] May, [place] [address] [place] [id number] [place] [address] May, [place] [address] [place] [id number] [place] [address] Apr, Type 2 diabetes mellitus wit h complication E11.8 ; Mild intellectual disability F70 ; Gastroesophageal reflux disease without esophagitis K21.9 ; Reactive airway disease, mild intermittent, uncomplicated J45.20 and Tobacco abuse Z72.0 [place] [address] [place] [id number] [place] [address] Apr, High risk medication use Z79 .899 ; Mild intellectual disability F70 ; Intermittent explosive disorder in adult F63.81 and Bipolar disorder, unspecified F31.9 [facility] [address] [id number] [address] [place] [address] [id number] Mar, Encounter for dental exam an d cleaning w/o abnormal findings Z01.20 [facility] [address] [id number] [address] [place] [address] [id number] Mar, Dental examination Z01.20 [facility] [address] [id number] [address] [place] [address] 12 Jan, 2017 [facility] [address] [id number] [address] [place] [id number] Jan, [facility] [address] [id number] [address] [place] [id number] Jan, Mild intellectual disability F70 ; Bipolar disorder, unspecified F31.9 and Intermittent explosive disorder in adult F63.81 [facility] [address] [id number] [address] [place] [address] Jan, Diabetes E11.9 [facility] [address] [id number] [address] [place] [address] [id number] Dec, Encounter for dental examina tion and cleaning without abnormal findings Z01.20 [facility] [address] [id number] [address] [place] [address] Dec, Bipolar disorder, unspecifie d F31.9 ; Intermittent explosive disorder in adult F63.81 and Mild intellectual disability F70 [facility] [address] [id number] [address] [place] [address] Nov, Diabetes E11.9 [facility] [address] [id number] [address] [place] [id number] Nov, [facility] [address] [id number] [address] [place] [id number] Nov, Diabetes E11.9 and Colon can cer screening Z12.[address] [id number] [id number] 21 Sep, 2016 Dental examination Z01.20 [facility] [address] [id number] [address] [place] [address] [id number] 21 Sep, 2016 Encounter for dental examina tion and cleaning without abnormal findings Z01.20 [facility] [address] [id number] [address] [place] [id number] 13 Sep, 2016 Bipolar disorder, unspecifie d F31.9 [facility] [address] [id number] [address] [place] [address] 12 Sep, 2016 Bipolar disorder, unspecifie d F31.9 [facility] [address] [facility] [id number] [address] [place] [address] Jul, [facility] [address] [facility] [id number] [address] [place] [phone] Jul, Type 2 diabetes mellitus wit h complication E11.8 [facility] [address] [id number] [address] [place] [address] [id number] 15 Jun, 2016 Encounter for dental examina tion and cleaning without abnormal findings Z01.[address] [id number] [id number] 15 Jun, 2016 Dental examination Z01.20 [facility] [address] [facility] [id number] [address] [place] [address] 18 Apr, 2016 Sports physical Z02.5 [facility] [address] [id number] [address] [place] [id number] 14 Mar, 2016 Bipolar disorder, in partial remission, most recent episode manic F31.73 and Intermittent explosive disorder in adult F63.81 [facility] [address] [id number] [address] [place] [id number] 08 Mar, 2016 [facility] [address] [facility] [id number] [address] [place] [address] Mar, Diabetes E11.9 [facility] [address] [id number] [address] [place] [address] [id number] Feb, Encounter for dental examina tion and cleaning without abnormal findings Z01.20 [facility] [address] [id number] [address] [place] [id number] 22 Dec, 2015 Nocturnal hypoxemia G47.34 a nd Encounter for immunization Z23 [facility] [address] [facility] [id number] [address] [place] [address] 15 Dec, 2015 [facility] [address] [facility] [id number] [address] [place] [id number] Dec, [facility] [address] [facility] [id number] [address] [place] [address] Dec, Bipolar disorder, unspecifie d F31.9 [facility] [address] [id number] [address] [place] [address] [id number] Oct, Encounter for dental examina tion and cleaning without abnormal findings Z01.20 [facility] [id number] [place] [address] [id number] Oct, Dental examination Z01.20 [facility] [address] [facility] [id number] [address] [place] [address] Oct, Diabetes E11.9 [facility] [address] [facility] [id number] [address] [place] [id number] Oct, Diabetes E11.9 ; Reactive ai rway disease, mild intermittent, uncomplicated J45.20 and Tobacco abuse Z72.0 [facility] [address] [facility] [id number] [address] [place] [address] Sep, Bipolar disorder, unspecifie d F31.9 and Depression F32.9 [facility] [address] [facility] [id number] [address] [place] [address] Sep, [facility] [address] [facility] [id number] [address] [place] [address] August, Tinea pedis of both feet B35 .3 and DM w/o complication type II, uncontrolled E11.65 [place] [address] [address] Jul, [place] [address] [address] Jul, [place] [address] [address] Jul, Obstructive sleep apnea G47. 33 [place] [address] [address] Jun, Diabetes E11.9 [place] [address] [address] Jun, [place] [address] [address] Jun, [place] [address] [address] Jun, Bipolar disorder, unspecifie d F31.9 and Mental retardation F79 [place] [address] [address] Apr, [place] [address] [address] Feb, Diabetes E11.9 ; Encounter f or immunization Z23 ; Cough R05 and Nicotine abuse Z72.0 [place] [address] [address] Jan, Bipolar disorder, unspecifie d F31.9 and Diabetes mellitus without mention of complication, type II or unspecified type, uncontrolled 250.02 [place] [address] [address] Jan, [place] [address] [address] Dec, Reactive airway disease 493. 90 and Enuresis 788.30 [place] [address] [id number] [address] [place] [id number] Dec, [facility] [address] [facility] [id number] [address] [place] [address] Nov, [facility] [address] [facility] [id number] [address] [place] [address] Nov, [facility] [address] [facility] [id number] [address] [place] [address] Nov, Annual physical exam V70.0 ; Urinary incontinence 788.30 ; Diabetes 250.00 and Hypertension 401.9 [facility] [address] [id number] [address] [place] [id number] Oct, Diabetes mellitus without me ntion of complication, type II or unspecified type, uncontrolled 250.02 [facility] [address] [facility] [id number] [address] [place] [address] Oct, Diabetes mellitus without me ntion of complication, type II or unspecified type, uncontrolled 250.02 [facility] [address] [facility] [id number] [address] [place] [id number] Oct, Diabetes mellitus without me ntion of complication, type II or unspecified type, uncontrolled 250.02 [facility] [address] [facility] [id number] [address] [place] [address] Oct, [facility] [address] [facility] [id number] [address] [place] [address] Oct, [facility] [address] [facility] [id number] [address] [place] [address] Oct, Bipolar disorder, unspecifie d 296.80 [facility] [id number] [place] [address] [id number] Sep, Dental examination V72.2 [facility] [address] [facility] [id number] [address] [place] [address] August, [facility] [address] [id number] [place] [address] [id number] August, Dental examination V72.2 [facility] [address] [id number] [address] [place] [address], [place] [address] August, [facility] [address] [id number] [address] [place] [address] 14 Jul, 2014 [facility] [address] [id number] [address] [place] [address] Jul, [facility] [address] [id number] [address] [place] [address] 17 Jun, 2014 [facility] [address] [id number] [address] [place] [address] Jun, [facility] [address] [id number] [address] [place] [address] Jun, [facility] [address] [id number] [address] [place] [address] Jun, [facility] [address] [id number] [address] [place] [id number] May, [facility] [address] [id number] [address] [place] [address] May, 2014 [facility] [address] [id number] [address] [place] [address] 16 May, 2014 [facility] [address] [id number] [address] [place] [address] 16 May, 2014 [facility] [address] [id number] [address] [place] [address] May, 2014 [facility] [address] [id number] [address] [place] [address] May, 2014 [facility] [address] [id number] [address] [place] [id number] 16 May, 2014 [facility] [address] [id number] [address] [place] [id number] 16 May, 2014 [facility] [address] [id number] [address] [place] [address], [place] [address] May, 2014 [facility] [address] [id number] [address] [place] [address], [place] [address] May, 2014 [facility] [address] [id number] [address] [place] [address], [place] [address] May, 2014 [facility] [address] [id number] [address] [place] [address], [place] [address] May, 2014 [facility] [address] [id number] [address] [place] [address], [place] [address] May, [facility] [address] [id number] [address] [place] [address], [place] [address] May, 2014 [facility] [address] [id number] [address] [place] [address], [place] [address] May, [facility] [address] [id number] [address] [place] [address], [place] [address] Apr, [facility] [address] [id number] [address] [place] [address], [place] [address] Apr, [facility] [address] [id number] [address] [place] [address], [place] [address] Apr, [facility] [address] [id number] [address] [place] [address], [place] [address] Apr, [facility] [address] [id number] [address] [place] [address], [place] [address] Apr, [facility] [address] [id number] [address] [place] [address], [place] [address] Apr, [facility] [address] [id number] [address] [place] [address], [place] [address] Apr, [facility] [address] [id number] [address] [place] [address], [place] [address] Apr, [facility] [address] [id number] [address] [place] [address], [place] [address] Apr, [facility] [address] [id number] [address] [place] [address], [place] [address] Apr, [facility] [address] [id number] [address] [place] [address], [place] [address] Apr, [facility] [address] [id number] [address] [place] [address], [place] [address] Apr, [facility] [address] [id number] [address] [place] [address], [place] [address] Mar, [facility] [address] [id number] [address] [place] [address], [place] [address] Mar, [facility] [address] [id number] [address] [place] [address], [place] [address] Mar, [facility] [address] [id number] [address] [place] [address], [place] [address] Mar, [facility] [address] [id number] [address] [place] [address], [place] [address] Mar, [facility] [address] [id number] [address] [place] [address], [place] [address] Mar, [facility] [address] [id number] [address] [place] [address], [place] [address] 13 Feb, 2014 [facility] [address] [id number] [address] [place] [address], [place] [address] Feb, [facility] [address] [id number] [address] [place] [address], [place] [address] Feb, [facility] [address] [id number] [address] [place] [address], [place] [address] 13 Feb, 2014 [facility] [address] [id number] [address] [place] [address], [place] [address] 14 Jan, 2014 [facility] [address] [id number] [address] [place] [address], [place] [address] 14 Jan, 2014 [facility] [address] [id number] [address] [place] [address], [place] [address] 14 Jan, 2014 [facility] [address] [id number] [address] [place] [address], [place] [address] 14 Jan, 2014 [facility] [address] [id number] [address] [place] [address], [place] [address] Dec, [facility] [address] [id number] [address] [place] [address], [place] [address] Dec, [facility] [address] [id number] [address] [place] [address], [place] [address] Dec, [facility] [address] [id number] [address] [place] [address], [place] [address] Dec, [facility] [address] [id number] [address] [place] [address], [place] [address] Nov, [facility] [address] [id number] [address] [place] [address], [place] [address] Nov, [facility] [address] [id number] [address] [place] [address], [place] [address] Nov, [facility] [address] [id number] [address] [place] [address], [place] [address] Nov, [facility] [address] [id number] [address] [place] [address], [place] [address] Nov, [facility] [address] [id number] [address] [place] [address], [place] [address] Nov, [facility] [address] [id number] [address] [place] [address], [place] [address] Nov, [facility] [address] [id number] [address] [place] [address], [place] [address] Oct, [facility] [address] [id number] [address] [place] [address], [place] [address] Oct, [facility] [facility] [address] [id number] [address] [place] [address], [place] [address] Oct, [facility] [address] [id number] [address] [place] [address], [place] [address] Oct, [facility] [address] [id number] [address] [place] [address], [place] [address] Oct, [facility] [address] [id number] [address] [place] [address], [place] [address] Oct, [facility] [address] [id number] [address] [place] [address], [place] [address] Oct, [facility] [address] [id number] [address] [place] [address], [place] [address] Sep, [facility] [address] [id number] [address] [place] [address], [place] [address] Sep, [facility] [address] [id number] [address] [place] [address], [place] [address] Sep, [facility] [address] [id number] [address] [place] [address], [place] [address] Sep, [facility] [address] [id number] [address] [place] [address], [place] [address] Sep, [facility] [address] [id number] [address] [place] [address], [place] [address] Jul, [facility] [address] [id number] [address] [place] [address], [place] [address] Jul, [facility] [address] [id number] [address] [place] [address], [place] [address] Jul, [facility] [address] [id number] [address] [place] [address], [place] [address] Jul, [facility] [address] [id number] [address] [place] [address], [place] [address] Jul, [facility] [address] [id number] [address] [place] [address], [place] [address] Jul, [facility] [address] [id number] [facility] [place] [address] Jul, [facility] [address] [id number] [facility] [place] [address] Jul, [facility] [address] [id number] [facility] [place] [address] Jul, [facility] [address] [id number] [address] [place] [address], [place] [address] Jul, [facility] [address] [id number] [address] [place] [address], [place] [address] Jul, [facility] [address] [id number] [address] [place] [address], [place] [address] Jul, [facility] [address] [id number] [address] [place] [address], [place] [address] Jun, [facility] [address] [id number] [address] [place] [address], [place] [address] Jun, [facility] [address] [id number] [address] [place] [address], [place] [address] Jun, [facility] [address] [id number] [address] [place] [address], [place] [address] Jun, [facility] [address] [id number] [address] [place] [address], [place] [address] Jun, [facility] [address] [id number] [address] [place] [address], [place] [address] Jun, [facility] [address] [id number] [address] [place] [address], [place] [address] Jun, [facility] [address] [id number] [address] [place] [address], [place] [address] Jun, [facility] [address] [id number] [address] [place] [address], [place] [address] May, [facility] [address] [id number] [address] [place] [address], [place] [address] May, [facility] [address] [id number] [address] [place] [address], [place] [address] May, [facility] [address] [id number] [address] [place] [address], [place] [address] May, [facility] [address] [id number] [address] [place] [address], [place] [address] May, [facility] [address] [id number] [address] [place] [address], [place] [address] May, [facility] [address] [id number] [address] [place] [address], [place] [address] May, [facility] [address] [id number] [address] [place] [address], [place] [address] May, [facility] [address] [id number] [address] [place] [address], [place] [address] Apr, [facility] [address] [id number] [address] [place] [address], [place] [address] Apr, [facility] [address] [id number] [address] [place] [address], [place] [address] Apr, [facility] [address] [id number] [address] [place] [address], [place] [address] Apr, [facility] [address] [id number] [address] [place] [address], [place] [address] Mar, [facility] [address] [id number] [address] [place] [address], [place] [address] Mar, [facility] [address] [id number] [address] [place] [address], [place] [address] Mar, [facility] [address] [id number] [address] [place] [address], [place] [address] Feb, [facility] [address] [id number] [address] [place] [address], [place] [address] Feb, [facility] [address] [id number] [address] [place] [address], [place] [address] Feb, [facility] [address] [id number] [address] [place] [address], [place] [address] Feb, [facility] [address] [id number] [address] [place] [address], [place] [address] Feb, [facility] [address] [id number] [address] [place] [address], [place] [address] Feb, [facility] [address] [id number] [address] [place] [address], [place] [address] Jan, [facility] [address] [id number] [address] [place] [address], [place] [address] Jan, [facility] [address] [id number] [address] [place] [address], [place] [address] Jan, [facility] [address] [id number] [address] [place] [address], [place] [address] Jan, [facility] [address] [id number] [address] [place] [address], [place] [address] Jan, [facility] [address] [id number] [address] [place] [address], [place] [address] Jan, [facility] [address] [id number] [address] [place] [address], [place] [address] Jan, [facility] [address] [id number] [address] [place] [address], [place] [address] 25 Dec, 2012 [facility] [address] [id number] [address] [place] [address], [place] [address] 16 Dec, 2012 [facility] [address] [id number] [address] [place] [address], [place] [address] 10 Dec, 2012 [facility] [address] [id number] [address] [place] [address], [place] [address] 05 Dec, 2012 [facility] [address] [id number] [address] [place] [address], [place] [address] Nov, [facility] [address] [id number] [address] [place] [address], [place] [address] Nov, [facility] [address] [id number] [address] [place] [address], [place] [address] Nov, [facility] [address] [id number] [address] [place] [address], [place] [address] Nov, [facility] [address] [id number] [address] [place] [address], [place] [address] Nov, [facility] [address] [id number] [address] [place] [address], [place] [address] Nov, [facility] [address] [id number] [address] [place] [address], [place] [address] Nov, [facility] [address] [id number] [address] [place] [address], [place] [address] Oct, [facility] [address] [id number] [address] [place] [address], [place] [address] Oct, [facility] [address] [id number] [address] [place] [address], [place] [address] Oct, [facility] [address] [id number] [address] [place] [address], [place] [address] Oct, [facility] [address] [id number] [address] [place] [address], [place] [address] Oct, [facility] [address] [id number] [address] [place] [address], [place] [address] Oct, [facility] [address] [id number] [address] [place] [address], [place] [address] Oct, [facility] [address] [id number] [address] [place] [address], [place] [address] Oct, [facility] [address] [id number] [address] [place] [address], [place] [address] Sep, Suleiman PEREZ [address] [facility] [address] [id number] [id number] 30 Aug, 2012 [facility] [address] [id number] [address] [place] [address], [place] [address] August, [facility] [address] [id number] [facility] [place] [address] Jul, [facility] [address] [id number] [address] [place] [address], [place] [address] Jul, [facility] [address] [id number] [address] [place] [address], [place] [address] Jul, [facility] [address] [id number] [address] [place] [address], [place] [address] Jul, [facility] [address] [id number] [address] [place] [address], [place] [address] Jul, [facility] [address] [id number] [address] [place] [address], [place] [address] Jul, [facility] [address] [id number] [address] [place] [address], [place] [address] 16 Jul, 2012 [facility] [address] [id number] [address] [place] [address], [place] [address] Jun, [facility] [address] [id number] [address] [place] [address], [place] [address] Jun, [facility] [address] [id number] [address] [place] [address], [place] [address] Jun, [facility] [address] [id number] [address] [place] [address], [place] [address] Jun, [facility] [address] [id number] [address] [place] [address], [place] [address] Jun, [facility] [address] [id number] [address] [place] [address], [place] [address] May, [facility] [address] [id number] [address] [place] [address], [place] [address] 18 May, 2012 [facility] [address] [id number] [address] [place] [address], [place] [address] 04 May, 2012 [facility] [address] [id number] [address] [place] [address], [place] [address] 15 Apr, 2012 [facility] [address] [id number] [address] [place] [address], [place] [address] 14 Apr, 2012 [facility] [address] [id number] [address] [place] [address], [place] [address] 07 Apr, 2012 [facility] [address] [id number] [address] [place] [address], [place] [address] Mar, [facility] [address] [id number] [address] [place] [address], [place] [address] 31 Mar, 2012 [facility] [address] [id number] [address] [place] [address], [place] [address] Mar, [facility] [address] [id number] [address] [place] [address], [place] [address] Mar, [facility] [address] [id number] [address] [place] [address], [place] [address] Mar, [facility] [address] [id number] [address] [place] [address] Mar, [facility] [address] [id number] [address] [place] [address] Feb, [facility] [address] [id number] [address] [place] [address] Feb, [facility] [address] [id number] [address] [place] [address], [place] [address] Jan, [facility] [address] [id number] [address] [place] [address], [place] [address] Jan, [facility] [address] [id number] [address] [place] [address], [place] [address] 25 Dec, 2011 [facility] [address] [id number] [address] [place] [address] Nov, [facility] [address] [id number] [address] [place] [address], [place] [address] Nov, [facility] [address] [id number] [address] [place] [address], [place] [address] Nov, [facility] [address] [id number] [address] [place] [address], [place] [address] Nov, [facility] [address] [id number] [address] [place] [address], [place] [address] Oct, [facility] [address] [id number] [address] [place] [address], [place] [address] Oct, [facility] [address] [id number] [address] [place] [address], [place] [address] Oct, [facility] [address] [id number] [address] [place] [address], [place] [address] Sep, [facility] [address] [id number] [address] [place] [address], [place] [address] Sep, [facility] [address] [id number] [address] [place] [address], [place] [address] Sep, [facility] [address] [id number] [address] [place] [address], [place] [address] August, [facility] [address] [id number] [address] [place] [address], [place] [address] August, [facility] [address] [id number] [address] [place] [address], [place] [address] Jul, [facility] [address] [id number] [address] [place] [address], [place] [address] 24 Jul, 2011 [facility] [address] [id number] [address] [place] [address], [place] [address] 17 Jul, 2011 [facility] [address] [id number] [address] [place] [address], [place] [address] Jul, [facility] [address] [id number] [address] [place] [address], [place] [address] Jun, [facility] [address] [id number] [address] [place] [address], [place] [address] 06 May, 2011 [facility] [address] [id number] [address] [place] [address], [place] [address] Apr, [facility] [address] [id number] [address] [place] [address], [place] [address] Apr, [facility] [address] [id number] [address] [place] [address], [place] [address] Apr, [facility] [address] [id number] [address] [place] [address], [place] [address] Apr, [facility] [address] [id number] [address] [place] [address], [place] [address] Apr, [facility] [address] [id number] [address] [place] [address], [place] [address] Apr, [facility] [address] [id number] [address] [place] [address], [place] [address] Mar, [facility] [address] [id number] [address] [place] [address], [place] [address] Mar, [facility] [address] [id number] [address] [place] [address], [place] [address] Feb, [facility] [address] [id number] [address] [place] [address], [place] [address] Feb, [facility] [address] [id number] [address] [place] [address], [place] [address] 17 Feb, 2011 [facility] [address] [id number] [address] [place] [address], [place] [address] 09 Feb, 2011 [facility] [address] [id number] [address] [place] [address], [place] [address] 20 Jan, 2011 [facility] [address] [id number] [address] [place] [address] 18 Jan, 2011 [facility] [address] [id number] [address] [place] [address], [place] [address] 18 Jan, 2011 [facility] [address] [id number] [address] [place] [address], [place] [address] 18 Jan, 2011 [facility] [address] [id number] [address] [place] [address], [place] [address] 17 Nov, 2010 [facility] [address] [id number] [address] [place] [address], [place] [address] Mar, [facility] [address] [id number] [address] [place] [address], [place] [address] Mar, [facility] [address] [id number] [address] [place] [address] 30 Feb, 2010 [facility] [address] [id number] [address] [place] [address], [place] [address] Feb, [facility] [address] [id number] [address] [place] [address] Jan, [facility] [address] [id number] [address] [place] [address], [place] [address] Jan, [facility] [address] [id number] [address] [place] [address] Sep, [facility] [address] [id number] [address] [place] [address] 16 May, 2009 [facility] [address] [id number] [address] [place] [address] Apr, [facility] [address] [id number] [address] [place] [address], [place] [address] Mar, [facility] [address] [id number] [address] [place] [address] 15 Feb, 2009 [facility] [address] [id number] [address] [place] [address] Feb, [facility] [address] [id number] [address] [place] [id number] 10 Feb, 2009 [facility] [address] [facility] [id number] [address] [place] [id number] Jan, [facility] [address] [facility] [id number] [address] [place] [phone] Jan, [facility] [address] [facility] [id number] [address] [place] [id number] Jan, [facility] [address] [facility] [id number] [address] [place] [phone] Jan, [facility] [address] [facility] [id number] [address] [place] [phone] August, IMMUNIZATIONS No Known Immunizations SOCIAL HISTORY [...] age 6 Hospitalization History surgery Hospitalization History [facility], inpa tient treatment few times for BH
--- OUTSIDE RECORDS SUMMARY | 2019-09-29 10:51 | XMS REPORT ---
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 Active 54576530 Problem Open-angle glaucoma of both eyes, unspecified glaucoma stage, unspecified open-angle glaucoma type H40.10X0 Acti ve 24557220 Problem Adjustment disorder, unspecified type F43.20 Active 07020290 Problem Obstructive sleep apnea G47.33 Active 64641667 Problem Hypertensive retinopathy of both eyes H35.033 Active 6900922 Problem Type 2 diabetes mellitus with complication E11.8 Active 24435215 Problem Essential hypertension I10 Active 50249844 Problem Diabetes E11.9 Active 83064552 Problem Bipolar disorder, in partial remission, most rec ent episode manic F31.73 Active 15418366 Problem Intermittent explosive disorder in adult F63.81 Active 95654119 Problem Other diabetic neurological complication associated with type 2 diabetes mellitus E11.49 Active 516180159 Problem Depression F32.9 Active 06353649 Problem Neuropathy G62.9 Active 547875231 Problem Intermittent explosive disorder F63.81 Active 10028999 Problem Bipolar disorder, unspecified F31.9 Active 68936048 Problem Mild intellectual disability F70 A ctive 38632414 Problem Reactive airway disease, mild intermittent, uncomplicated J45.20 Active 067512025 Problem Gastroesophageal reflux disease without esophagitis K21.9 Active 649618268 ALLERGIES No Information ENCOUNTERS Encounter Location Date Diagnosis [facility] [address] [facility] [id number] [address] [place] [address] 24 Dec, 2018 [facility] [address] [facility] [id number] [address] [place] [id number] Oct, OUTREACH [facility] [address] [facility] [id number] [place] [address] Oct, Oral health maintenance stat us requiring routine preventive dental care K08.9 [facility] [address] [facility] [id number] [address] [place] [address] August, Intermittent explosive disor salvatore in adult F63.81 ; Bipolar disorder, unspecified F31.9 and Mild intellectual disability F70 [facility] [address] [facility] [id number] [address] [place] [address] [id number] August, Dental caries K02.9 [facility] [address] [facility] [id number] [address] [place] [address] Jul, Onychomycosis B35.1 ; Other diabetic neurological complication associated with type 2 diabetes mellitus E11.49 and Tinea pedis of both feet B35.3 [facility] [address] [facility] [id number] [address] [place] [address] [id number] Jul, Caries K02.9 [facility] [address] [facility] [id number] [address] [place] [address] Jul, Type 2 diabetes mellitus wit h complication E11.8 ; Tobacco abuse Z72.0 and Bipolar disorder, unspecified F31.9 [facility] [address] [facility] [id number] [address] [place] [address] Jun, [facility] [address] [facility] [id number] [address] [place] [address] [id number] Jun, Dental examination Z01.20 an d Oral health maintenance status requiring routine preventive dental care K08.9 [facility] [address] [facility] [id number] [address] [place] [address] May, Bilateral impacted cerumen H 61.23 [facility] [address] [facility] [id number] [address] [place] [address] Apr, Bipolar disorder, unspecifie d F31.9 ; Intermittent explosive disorder in adult F63.81 ; Type 2 diabetes mellitus with complication E11.8 ; Tobacco abuse Z72.0 and Colon cancer screening Z12.11 [facility] [address] [place] [id number] [address] [place] [address] Apr, Onychomycosis B35.1 and Othe r diabetic neurological complication associated with type 2 diabetes mellitus E11.49 [facility] [address] [place] [id number] [address] [place] [address] Apr, Intermittent explosive disor salvatore in adult F63.81 ; Bipolar disorder, unspecified F31.9 and Mild intellectual disability F70 [facility] [address] [place] [address] 03 Mar, 2018 Diabetes E11.9 [facility] [address] [place] [id number] [address] [place] [address] Jan, Encounter for immunization Z 23 [facility] [address] [place] [id number] [address] [place] [address] Jan, Tinea pedis of both feet B35 .3 ; Other diabetic neurological complication associated with type 2 diabetes mellitus E11.49 and Onychomycosis B35.1 [facility] [address] [place] [address] Nov, Type 2 diabetes mellitus wit h complication E11.8 [facility] [address] [place] [address] Nov, [facility] [address] [place] [id number] [address] [place] [address] Oct, Intermittent explosive disor salvatore in adult F63.81 ; Bipolar disorder, unspecified F31.9 and Mild intellectual disability F70 [facility] [address] [place] [id number] [address] [place] [address] Oct, [facility] [address] [place] [id number] [address] [place] [address] [id number] Oct, Dental examination Z01.20 [facility] [address] [place] [address] Oct, Onychomycosis B35.1 and Othe r diabetic neurological complication associated with type 2 diabetes mellitus E11.49 [place] [address] [place] [address] Sep, Type 2 diabetes mellitus wit h complication E11.8 and Colon cancer screening Z12.11 [place] [address] [address] Sep, Type 2 diabetes mellitus wit h complication E11.8 ; Colon cancer screening Z12.11 and Neuropathy G62.9 [place] [address] [address] August, Diabetes E11.9 [facility] [address] [place] [id number] [address] [place] [address] [phone] Jul, Dental examination Z01.20 [place] [address] [place] [id number] [address] [place] [address] May, Mild intellectual disability F70 [place] [address] [address] May, Mild intellectual disability F70 ; High risk medication use Z79.899 ; Intermittent explosive disorder in adult F63.81 and Bipolar disorder, unspecified F31.9 [place] [address] [place] [id number] [address] [place] [address] May, [place] [address] [place] [id number] [address] [place] [address] May, [place] [address] [place] [id number] [address] [place] [address] Apr, Type 2 diabetes mellitus wit h complication E11.8 ; Mild intellectual disability F70 ; Gastroesophageal reflux disease without esophagitis K21.9 ; Reactive airway disease, mild intermittent, uncomplicated J45.20 and Tobacco abuse Z72.0 [place] [id number] [address] [place] [address] Apr, High risk medication use Z79 .899 ; Mild intellectual disability F70 ; Intermittent explosive disorder in adult F63.81 and Bipolar disorder, unspecified F31.9 [facility] [address] [id number] [address] [place] [address] [phone] Mar, Encounter for dental exam an d cleaning w/o abnormal findings Z01.20 [facility] [address] [id number] [address] [place] [address] [id number] Mar, Dental examination Z01.20 [facility] [address] [id number] [address] [place] [address] 12 Jan, 2017 [facility] [address] [id number] [address] [place] [address] Jan, [facility] [address] [id number] [address] [place] [address] 10 Jan, 2017 Mild intellectual disability F70 ; Bipolar disorder, unspecified F31.9 and Intermittent explosive disorder in adult F63.81 [facility] [address] [id number] [address] [place] [address] 02 Jan, 2017 Diabetes E11.9 [facility] [address] [id number] [address] [place] [address] [id number] 13 Dec, 2016 Encounter for dental examina tion and cleaning without abnormal findings Z01.20 [facility] [address] [id number] [address] [place] [address] 12 Dec, 2016 Bipolar disorder, unspecifie d F31.9 ; Intermittent explosive disorder in adult F63.81 and Mild intellectual disability F70 [facility] [address] [id number] [address] [place] [address] Nov, Diabetes E11.9 [facility] [address] [id number] [address] [place] [address] Nov, [facility] [address] [id number] [address] [place] [address] Nov, Diabetes E11.9 and Colon can cer screening Z12.11 [facility] [address] [facility] [address] [id number] [id number] 21 Sep, 2016 Dental examination Z01.20 [facility] [address] [id number] [address] [place] [address] [id number] 21 Sep, 2016 Encounter for dental examina tion and cleaning without abnormal findings Z01.20 [facility] [address] [id number] [address] [place] [address] 13 Sep, 2016 Bipolar disorder, unspecifie d F31.9 [facility] [address] [id number] [address] [place] [address] 12 Sep, 2016 Bipolar disorder, unspecifie d F31.9 [facility] [address] [id number] [address] [place] [address] Jul, [facility] [address] [facility] [id number] [address] [place] [address] Jul, Type 2 diabetes mellitus wit h complication E11.8 [facility] [address] [id number] [address] [place] [address] [id number] 15 Jun, 2016 Encounter for dental examina tion and cleaning without abnormal findings Z01.[address] [id number] [id number] 15 Jun, 2016 Dental examination Z01.20 [facility] [address] [facility] [id number] [address] [place] [address] 18 Apr, 2016 Sports physical Z02.5 [facility] [address] [id number] [address] [place] [address] 14 Mar, 2016 Bipolar disorder, in partial remission, most recent episode manic F31.73 and Intermittent explosive disorder in adult F63.81 [facility] [address] [id number] [address] [place] [address] 08 Mar, 2016 [facility] [address] [facility] [id number] [address] [place] [address] 06 Dec, 2016 Diabetes E11.9 [facility] [address] [id number] [address] [place] [address] [id number] Feb, Encounter for dental examina tion and cleaning without abnormal findings Z01.20 [facility] [address] [id number] [address] [place] [address] 22 Dec, 2015 Nocturnal hypoxemia G47.34 a nd Encounter for immunization Z23 [facility] [address] [facility] [id number] [address] [place] [address] 15 Dec, 2015 [facility] [address] [id number] [address] [place] [address] Dec, [facility] [address] [facility] [id number] [address] [place] [address] Dec, Bipolar disorder, unspecifie d F31.9 [facility] [address] [id number] [address] [place] [address] [id number] Oct, Encounter for dental examina tion and cleaning without abnormal findings Z01.20 [facility] [place] [id number] [place] [address] [id number] Oct, Dental examination Z01.20 [facility] [address] [facility] [id number] [address] [place] [address] Oct, Diabetes E11.9 [facility] [address] [facility] [id number] [address] [place] [address] Oct, Diabetes E11.9 ; Reactive ai rway disease, mild intermittent, uncomplicated J45.20 and Tobacco abuse Z72.0 [facility] [address] [facility] [id number] [address] [place] [address] Sep, Bipolar disorder, unspecifie d F31.9 and Depression F32.9 [place] [id number] [facility] [id number] [address] [place] [address] Sep, [facility] [address] [facility] [id number] [address] [place] [address] August, Tinea pedis of both feet B35 .3 and DM w/o complication type II, uncontrolled E11.65 [place] [id number] [address] Jul, [place] [address] [address] Jul, [place] [address] [address] Jul, Obstructive sleep apnea G47. 33 [place] [address] [address] Jun, Diabetes E11.9 [place] [address] [address] Jun, [place] [address] [address] Jun, [place] [address] [address] Jun, Bipolar disorder, unspecifie d F31.9 and Mental retardation F79 [place] [address] [address] Apr, [place] [address] [address] Feb, Diabetes E11.9 ; Encounter f or immunization Z23 ; Cough R05 and Nicotine abuse Z72.0 [place] [address] [address] Jan, Bipolar disorder, unspecifie d F31.9 and Diabetes mellitus without mention of complication, type II or unspecified type, uncontrolled 250.02 [place] [address] [address] Jan, [place] [address] [address] Dec, Reactive airway disease 493. 90 and Enuresis 788.30 [place] [address] [place] [id number] [address] [place] [address] Dec, [facility] [address] [facility] [id number] [address] [place] [address] Nov, [facility] [address] [facility] [id number] [address] [place] [address] Nov, [facility] [address] [facility] [id number] [place] [address] Nov, Annual physical exam V70.0 ; Urinary incontinence 788.30 ; Diabetes 250.00 and Hypertension 401.9 [facility] [address] [id number] [address] [place] [address] Oct, Diabetes mellitus without me ntion of complication, type II or unspecified type, uncontrolled 250.02 [facility] [address] [place] [id number] [address] [place] [address] Oct, Diabetes mellitus without me ntion of complication, type II or unspecified type, uncontrolled 250.02 [facility] [address] [facility] [id number] [address] [place] [address] Oct, Diabetes mellitus without me ntion of complication, type II or unspecified type, uncontrolled 250.02 [facility] [address] [place] [id number] [address] [place] [address] Oct, [facility] [address] [facility] [id number] [address] [place] [address] Oct, [facility] [address] [place] [id number] [address] [place] [address] Oct, Bipolar disorder, unspecifie d 296.80 [facility] [address] [id number] [place] [address] [id number] Sep, Dental examination V72.2 [facility] [address] [facility] [id number] [address] [place] [address] August, [facility] [address] [id number] [place] [address] [id number] August, Dental examination V72.2 [facility] [address] [id number] [address] [place] [address], [place] [address] August, [facility] [address] [id number] [address] [place] [address] 14 Jul, 2014 [facility] [address] [id number] [address] [place] [address] Jul, [facility] [address] [id number] [address] [place] [address] Jun, [facility] [address] [id number] [address] [place] [address], [place] [address] Jun, [facility] [address] [id number] [address] [place] [address] Jun, [facility] [address] [id number] [address] [place] [address] Jun, [facility] [address] [id number] [address] [place] [address] May, [facility] [address] [id number] [address] [place] [address] May, [facility] [address] [id number] [address] [place] [address] 16 May, 2014 [facility] [address] [id number] [address] [place] [address] 16 May, 2014 [facility] [address] [id number] [address] [place] [address] May, 2014 [facility] [address] [id number] [address] [place] [address] May, 2014 [facility] [address] [id number] [address] [place] [address] 16 May, 2014 [facility] [address] [id number] [address] [place] [address] May, [facility] [address] [id number] [address] [place] [address], [place] [address] May, 2014 [facility] [address] [id number] [address] [place] [address], [place] [address] May, 2014 [facility] [address] [id number] [address] [place] [address], [place] [address] May, 2014 [facility] [address] [id number] [address] [place] [address], [place] [address] May, 2014 [facility] [address] [id number] [address] [place] [address], [place] [address] May, 2014 [facility] [address] [id number] [address] [place] [address], [place] [address] May, 2014 [facility] [address] [id number] [address] [place] [address], [place] [address] May, [facility] [address] [id number] [address] [place] [address], [place] [address] Apr, [facility] [address] [id number] [address] [place] [address], [place] [address] Apr, [facility] [address] [id number] [address] [place] [address], [place] [address] Apr, [facility] [address] [id number] [address] [place] [address], [place] [address] Apr, [facility] [address] [id number] [address] [place] [address], [place] [address] Apr, [facility] [address] [id number] [address] [place] [address], [place] [address] Apr, [facility] [address] [id number] [address] [place] [address], [place] [address] Apr, [facility] [address] [id number] [address] [place] [address], [place] [address] Apr, [facility] [address] [id number] [address] [place] [address], [place] [address] Apr, [facility] [address] [id number] [address] [place] [address], [place] [address] Apr, [facility] [address] [id number] [address] [place] [address], [place] [address] Apr, [facility] [address] [id number] [address] [place] [address], [place] [address] Apr, [facility] [address] [id number] [address] [place] [address], [place] [address] Mar, [facility] [address] [id number] [address] [place] [address], [place] [address] Mar, [facility] [address] [id number] [address] [place] [address], [place] [address] Mar, [facility] [address] [id number] [address] [place] [address], [place] [address] Mar, [facility] [address] [id number] [address] [place] [address], [place] [address] Mar, [facility] [address] [id number] [address] [place] [address], [place] [address] Mar, [facility] [address] [id number] [address] [place] [address], [place] [address] Feb, [facility] [address] [id number] [address] [place] [address], [place] [address] Feb, [facility] [address] [id number] [address] [place] [address], [place] [address] Feb, [facility] [address] [id number] [address] [place] [address], [place] [address] Feb, [facility] [address] [id number] [address] [place] [address], [place] [address] 14 Jan, 2014 [facility] [address] [id number] [address] [place] [address], [place] [address] 14 Jan, 2014 [facility] [address] [id number] [address] [place] [address], [place] [address] Jan, [facility] [address] [id number] [address] [place] [address], [place] [address] Jan, [facility] [address] [id number] [address] [place] [address], [place] [address] Dec, [facility] [address] [id number] [address] [place] [address], [place] [address] Dec, [facility] [address] [id number] [address] [place] [address], [place] [id number] Dec, [facility] [address] [id number] [address] [place] [address], [place] [id number] Dec, [facility] [address] [id number] [address] [place] [address], [place] [id number] Nov, [facility] [address] [id number] [address] [place] [address], [place] [id number] Nov, [facility] [address] [id number] [address] [place] [address], [place] [id number] Nov, [facility] [address] [id number] [address] [place] [address], [place] [id number] Nov, [facility] [address] [id number] [address] [place] [address], [place] [id number] Nov, [facility] [address] [id number] [address] [place] [address], [place] [address] Nov, [facility] [address] [id number] [address] [place] [address], [place] [id number] Nov, [facility] [address] [id number] [address] [place] [address], [place] [id number] Oct, [facility] [address] [id number] [address] [place] [address], [place] [id number] Oct, [facility] [address] [id number] [address] [place] [address], [place] [id number] Oct, [facility] [address] [id number] [facility] [place] [address] Oct, [facility] [address] [id number] [address] [place] [address], [place] [id number] Oct, [facility] [address] [id number] [address] [place] [address], [place] [id number] Oct, [facility] [address] [id number] [address] [place] [address], [place] [id number] Oct, [facility] [address] [id number] [address] [place] [address], [place] [id number] Sep, [facility] [address] [id number] [address] [place] [address], [place] [id number] Sep, [facility] [address] [id number] [address] [place] [address], [place] [address] Sep, [facility] [address] [id number] [address] [place] [address], [place] [id number] Sep, [facility] [address] [id number] 54 [place] [address], [place] [address] Sep, [facility] [address] [id number] [address] [place] [address], [place] [address] Jul, [facility] [address] [id number] [address] [place] [address], [place] [address] Jul, [facility] [address] [id number] [address] [place] [address], [place] [address] Jul, [facility] [address] [id number] [address] [place] [address], [place] [address] Jul, [facility] [address] [id number] [address] [place] [address], [place] [address] Jul, [facility] [address] [id number] [address] [place] [address], [place] [address] Jul, [facility] [address] [id number] [facility] [place] [address] Jul, [facility] [address] [id number] [facility] [place] [address] Jul, [facility] [address] [id number] [facility] [place] [address] Jul, [facility] [address] [id number] [address] [place] [address], [place] [address] Jul, [facility] [address] [id number] [address] [place] [address], [place] [address] Jul, [facility] [address] [id number] [address] [place] [address], [place] [address] Jul, [facility] [address] [id number] [address] [place] [address], [place] [address] Jun, [facility] [address] [id number] [address] [place] [address], [place] [address] Jun, [facility] [address] [id number] [address] [place] [address], [place] [address] Jun, [facility] [address] [id number] [address] [place] [address], [place] [address] Jun, [facility] [address] [id number] [address] [place] [address], [place] [address] Jun, [facility] [address] [id number] [address] [place] [address], [place] [address] Jun, [facility] [address] [id number] [address] [place] [address], [place] [address] Jun, [facility] [address] [id number] [address] [place] [address], [place] [address] Jun, [facility] [address] [id number] [address] [place] [address], [place] [address] May, [facility] [address] [id number] [address] [place] [address], [place] [address] May, [facility] [address] [id number] [address] [place] [address], [place] [address] May, [facility] [address] [id number] [address] [place] [address], [place] [address] May, [facility] [address] [id number] [address] [place] [address], [place] [address] May, [facility] [address] [id number] [address] [place] [address], [place] [address] May, [facility] [address] [id number] [address] [place] [address], [place] [address] May, [facility] [address] [id number] [address] [place] [address], [place] [address] May, [facility] [address] [id number] [address] [place] [address], [place] [address] Apr, [facility] [address] [id number] [address] [place] [address], [place] [address] Apr, [facility] [address] [id number] [address] [place] [address], [place] [address] Apr, [facility] [address] [id number] [address] [place] [address], [place] [address] Apr, [facility] [address] [id number] [address] [place] [address], [place] [address] Mar, [facility] [address] [id number] [address] [place] [address], [place] [address] Mar, [facility] [address] [id number] [address] [place] [address], [place] [address] Mar, [facility] [address] [id number] [address] [place] [address], [place] [address] Feb, [facility] [address] [id number] [address] [place] [address], [place] [address] Feb, [facility] [address] [id number] [address] [place] [address], [place] [address] Feb, [facility] [address] [id number] [address] [place] [address], [place] [address] Feb, [facility] [address] [id number] [address] [place] [address], [place] [address] Feb, [facility] [address] [id number] [address] [place] [address], [place] [address] Feb, [facility] [address] [id number] [address] [place] [address], [place] [address] Jan, [facility] [address] [id number] [address] [place] [address], [place] [address] Jan, [facility] [address] [id number] [address] [place] [address], [place] [address] Jan, [facility] [address] [id number] [address] [place] [address], [place] [address] Jan, [facility] [address] [id number] [address] [place] [address], [place] [address] Jan, [facility] [address] [id number] [address] [place] [address], [place] [address] Jan, [facility] [address] [id number] [address] [place] [address], [place] [address] Jan, [facility] [address] [id number] [address] [place] [address], [place] [address] 25 Dec, 2012 [facility] [address] [id number] [address] [place] [address], [place] [address] 16 Dec, 2012 [facility] [address] [id number] [address] [place] [address], [place] [address] 10 Dec, 2012 [facility] [address] [id number] [address] [place] [address], [place] [address] 05 Dec, 2012 [facility] [address] [id number] [address] [place] [address], [place] [address] Nov, [facility] [address] [id number] [address] [place] [address], [place] [address] Nov, [facility] [address] [id number] [address] [place] [address], [place] [address] Nov, [facility] [address] [id number] [address] [place] [address], [place] [address] Nov, [facility] [address] [id number] [address] [place] [address], [place] [address] Nov, [facility] [address] [id number] [address] [place] [address], [place] [address] Nov, [facility] [address] [id number] [address] [place] [address], [place] [address] Nov, [facility] [address] [id number] [address] [place] [address], [place] [address] Oct, [facility] [address] [id number] [address] [place] [address], [place] [address] Oct, [facility] [address] [id number] [address] [place] [address], [place] [address] Oct, [facility] [address] [id number] [address] [place] [address], [place] [address] Oct, [facility] [address] [id number] [address] [place] [address], [place] [address] Oct, [facility] [address] [id number] [address] [place] [address], [place] [address] Oct, [facility] [address] [id number] [address] [place] [address], [place] [address] Oct, [facility] [address] [id number] [address] [place] [address], [place] [address] Oct, [facility] [address] [id number] [address] [place] [address], [place] [address] Sep, [facility] [id number] [id number] 30 Aug, 2012 [facility] [address] [id number] [address] [place] [address], [place] [address] August, [facility] [address] [id number] [address] [place] [address], [place] [address] Jul, [facility] [address] [id number] [address] [place] [address], [place] [address] Jul, [facility] [address] [id number] [address] [place] [address], [place] [address] Jul, [facility] [address] [id number] [address] [place] [address], [place] [address] Jul, [facility] [address] [id number] [address] [place] [address], [place] [address] Jul, [facility] [address] [id number] [address] [place] [address], [place] [address] Jul, [facility] [address] [id number] [address] [place] [address], [place] [address] Jul, [facility] [address] [id number] [address] [place] [address], [place] [address] Jun, [facility] [address] [id number] [address] [place] [address], [place] [address] Jun, [facility] [address] [id number] [address] [place] [address], [place] [address] Jun, [facility] [address] [id number] [address] [place] [address] Jun, [facility] [address] [id number] [address] [place] [id number] Jun, [facility] [address] [id number] [address] [place] [address], [place] [address] May, [facility] [address] [id number] [address] [place] [address] May, [facility] [address] [id number] [address] [place] [address], [place] [address] 04 May, 2012 [facility] [address] [id number] [address] [place] [address], [place] [address] 15 Apr, 2012 [facility] [address] [id number] [address] [place] [address], [place] [address] 14 Apr, 2012 [facility] [address] [id number] [address] [place] [address], [place] [address] Apr, [facility] [address] [id number] [address] [place] [address], [place] [address] Mar, [facility] [address] [id number] [address] [place] [address], [place] [address] Mar, [facility] [address] [id number] [address] [place] [address], [place] [address] Mar, [facility] [address] [id number] [address] [place] [address], [place] [address] Mar, [facility] [address] [id number] [address] [place] [address], [place] [address] Mar, [facility] [address] [id number] [address] [place] [address], [place] [address] Mar, [facility] [address] [id number] [address] [place] [address], [place] [address] Feb, [facility] [address] [id number] [address] [place] [address], [place] [address] Feb, [facility] [address] [id number] [address] [place] [address], [place] [address] Jan, [facility] [address] [id number] [address] [place] [address], [place] [address] Jan, [facility] [address] [id number] [address] [place] [address], [place] [address] Dec, [facility] [address] [id number] [address] [place] [address], [place] [address] Nov, [facility] [address] [id number] [address] [place] [address], [place] [address] Nov, [facility] [address] [id number] [address] [place] [address], [place] [address] Nov, [facility] [address] [id number] [address] [place] [address], [place] [address] Nov, [facility] [address] [id number] [address] [place] [address], [place] [address] Oct, [facility] [address] [id number] [address] [place] [address], [place] [address] Oct, [facility] [address] [id number] [address] [place] [address], [place] [address] Oct, [facility] [address] [id number] [address] [place] [address], [place] [address] Sep, [facility] [address] [id number] [address] [place] [address], [place] [address] Sep, [facility] [address] [id number] [address] [place] [address], [place] [address] Sep, [facility] [address] [id number] [address] [place] [address], [place] [address] August, [facility] [address] [id number] [address] [place] [address], [place] [address] August, [facility] [address] [id number] [address] [place] [address], [place] [address] Jul, [facility] [address] [id number] [address] [place] [address], [place] [address] 24 Jul, 2011 [facility] [address] [id number] [address] [place] [address], [place] [address] 17 Jul, 2011 [facility] [address] [id number] [address] [place] [address], [place] [address] Jul, [facility] [address] [id number] [address] [place] [address], [place] [address] 14 Jun, 2011 [facility] [address] [id number] [address] [place] [address], [place] [address] May, [facility] [address] [id number] [address] [place] [address], [place] [address] Apr, [facility] [address] [id number] [address] [place] [address], [place] [address] Apr, [facility] [address] [id number] [address] [place] [address], [place] [address] Apr, [facility] [address] [id number] [address] [place] [address], [place] [address] Apr, [facility] [address] [id number] [address] [place] [address], [place] [address] Apr, [facility] [address] [id number] [address] [place] [address], [place] [address] Apr, [facility] [address] [id number] [address] [place] [address], [place] [address] Mar, [facility] [address] [id number] [address] [place] [address], [place] [address] Mar, [facility] [address] [id number] [address] [place] [address], [place] [address] Feb, [facility] [address] [id number] [address] [place] [address], [place] [address] Feb, [facility] [address] [id number] [address] [place] [address], [place] [address] Feb, [facility] [address] [id number] [address] [place] [address], [place] [address] Feb, [facility] [address] [id number] [address] [place] [address], [place] [address] Jan, [facility] [address] [id number] [address] [place] [address], [place] [address] Jan, [facility] [address] [id number] [address] [place] [address], [place] [address] 18 Jan, 2011 [facility] [address] [id number] [address] [place] [address], [place] [address] 18 Jan, 2011 [facility] [address] [id number] [address] [place] [address], [place] [address] 17 Nov, 2010 [facility] [address] [id number] [address] [place] [address], [place] [address] Mar, [facility] [address] [id number] [address] [place] [address], [place] [address] Mar, [facility] [address] [id number] [address] [place] [address], [place] [address] 30 Feb, 2010 [facility] [address] [id number] [address] [place] [address], [place] [address] 15 Feb, 2010 [facility] [address] [id number] [address] [place] [address], [place] [address] Jan, [facility] [address] [id number] [address] [place] [address], [place] [address] Jan, [facility] [address] [id number] [address] [place] [id number] Sep, [facility] [address] [id number] [address] [place] [address], [place] [address] May, [facility] [address] [id number] [address] [place] [address] Apr, [facility] [address] [id number] [address] [place] [address], [place] [address] Mar, [facility] [address] [id number] [address] [place] [address] 15 Feb, 2009 [facility] [address] [id number] [address] [place] [address], [place] [address] Feb, [facility] [address] [id number] [address] [place] [id number] 10 Feb, 2009 [facility] [address] [facility] [id number] [address] [place] [address] 22 Jan, 2009 [facility] [address] [facility] [id number] [address] [place] [id number] 13 Jan, 2009 [facility] [address] [facility] [id number] [address] [place] [id number] Jan, [facility] [address] [facility] [id number] [address] [place] [id number] 11 Jan, 2009 [facility] [address] [facility] [id number] [address] [place] [id number] August, IMMUNIZATIONS No Known Immunizations SOCIAL HISTORY [...] age 6 Hospitalization History surgery Hospitalization History [facility], inri tie treatment few times for BH
--- OUTSIDE RECORDS SUMMARY | 2019-09-29 10:52 | XMS REPORT ---
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 Active 98974984 Problem Open-angle glaucoma of both eyes, unspecified glaucoma stage, unspecified open-angle glaucoma type H40.10X0 Acti ve 68979388 Problem Adjustment disorder, unspecified type F43.20 Active 57750492 Problem Obstructive sleep apnea G47.33 Active 68386097 Problem Hypertensive retinopathy of both eyes H35.033 Active 8833334 Problem Type 2 diabetes mellitus with complication E11.8 Active 06183595 Problem Essential hypertension I10 Active 01501261 Problem Diabetes E11.9 Active 11928789 Problem Bipolar disorder, in partial remission, most rec ent episode manic F31.73 Active 58142970 Problem Intermittent explosive disorder in adult F63.81 Active 17030608 Problem Other diabetic neurological complication associated with type 2 diabetes mellitus E11.49 Active 082452744 Problem Depression F32.9 Active 24989279 Problem Neuropathy G62.9 Active 952137405 Problem Intermittent explosive disorder F63.81 Active 25792668 Problem Bipolar disorder, unspecified F31.9 Active 59164116 Problem Mild intellectual disability F70 A ctive 28462633 Problem Reactive airway disease, mild intermittent, uncomplicated J45.20 Active 680203820 Problem Gastroesophageal reflux disease without esophagitis K21.9 Active 160415838 ALLERGIES No Information ENCOUNTERS Encounter Location Date Diagnosis [facility] [address] [facility] [id number] [address] [place] [address] 24 Dec, 2018 [facility] [address] [facility] [id number] [address] [place] [address] Oct, OUTREACH [facility] [address] [facility] [id number] [place] [phone] Oct, Oral health maintenance stat us requiring routine preventive dental care K08.9 [facility] [address] [facility] [id number] [address] [place] [address] August, Intermittent explosive disor salvatore in adult F63.81 ; Bipolar disorder, unspecified F31.9 and Mild intellectual disability F70 [facility] [address] [facility] [id number] [address] [place] [id number] August, Dental caries K02.9 [facility] [address] [facility] [id number] [address] [place] [address] Jul, Onychomycosis B35.1 ; Other diabetic neurological complication associated with type 2 diabetes mellitus E11.49 and Tinea pedis of both feet B35.3 [facility] [address] [facility] [id number] [address] [place] [address] [id number] Jul, Caries K02.9 [facility] [address] [facility] [id number] [address] [place] [phone] Jul, Type 2 diabetes mellitus wit h complication E11.8 ; Tobacco abuse Z72.0 and Bipolar disorder, unspecified F31.9 [facility] [address] [facility] [id number] [address] [place] [address] Jun, [facility] [address] [facility] [id number] [address] [place] [address] [id number] Jun, Dental examination Z01.20 an d Oral health maintenance status requiring routine preventive dental care K08.9 [facility] [address] [facility] [id number] [address] [place] [address] May, Bilateral impacted cerumen H 61.23 [facility] [address] [facility] [id number] [address] [place] [address] Apr, Bipolar disorder, unspecifie d F31.9 ; Intermittent explosive disorder in adult F63.81 ; Type 2 diabetes mellitus with complication E11.8 ; Tobacco abuse Z72.0 and Colon cancer screening Z12.11 [facility] [address] [place] [id number] [address] [place] [address] Apr, Onychomycosis B35.1 and Othe r diabetic neurological complication associated with type 2 diabetes mellitus E11.49 [facility] [address] [place] [id number] [address] [place] [address] Apr, Intermittent explosive disor salvatore in adult F63.81 ; Bipolar disorder, unspecified F31.9 and Mild intellectual disability F70 [facility] [id number] [place] [address] 03 Mar, 2018 Diabetes E11.9 [facility] [address] [place] [id number] [address] [place] [address] Jan, Encounter for immunization Z 23 [facility] [address] [place] [id number] [address] [place] [address] Jan, Tinea pedis of both feet B35 .3 ; Other diabetic neurological complication associated with type 2 diabetes mellitus E11.49 and Onychomycosis B35.1 [facility] [address] [place] [address] Nov, Type 2 diabetes mellitus wit h complication E11.8 [facility] [address] [place] [address] Nov, [facility] [address] [place] [id number] [address] [place] [address] Oct, Intermittent explosive disor salvatore in adult F63.81 ; Bipolar disorder, unspecified F31.9 and Mild intellectual disability F70 [facility] [address] [place] [id number] [address] [place] [address] Oct, [facility] [address] [place] [id number] [address] [place] [address] [id number] Oct, Dental examination Z01.20 [facility] [address] [place] [address] Oct, Onychomycosis B35.1 and Othe r diabetic neurological complication associated with type 2 diabetes mellitus E11.49 [place] [address] [place] [address] Sep, Type 2 diabetes mellitus wit h complication E11.8 and Colon cancer screening Z12.11 [place] [address] [address] Sep, Type 2 diabetes mellitus wit h complication E11.8 ; Colon cancer screening Z12.11 and Neuropathy G62.9 [place] [address] [address] August, Diabetes E11.9 [facility] [address] [place] [id number] [address] [place] [address] [id number] Jul, Dental examination Z01.20 [place] [address] [place] [id number] [address] [place] [address] May, Mild intellectual disability F70 [place] [address] [address] May, Mild intellectual disability F70 ; High risk medication use Z79.899 ; Intermittent explosive disorder in adult F63.81 and Bipolar disorder, unspecified F31.9 [place] [address] [place] [id number] [address] [place] [address] May, [place] [address] [place] [id number] [address] [place] [address] May, [place] [address] [place] [id number] [address] [place] [address] Apr, Type 2 diabetes mellitus wit h complication E11.8 ; Mild intellectual disability F70 ; Gastroesophageal reflux disease without esophagitis K21.9 ; Reactive airway disease, mild intermittent, uncomplicated J45.20 and Tobacco abuse Z72.0 [place] [id number] [address] [place] [address] Apr, High risk medication use Z79 .899 ; Mild intellectual disability F70 ; Intermittent explosive disorder in adult F63.81 and Bipolar disorder, unspecified F31.9 [facility] [address] [id number] [address] [place] [phone] Mar, Encounter for dental exam an d cleaning w/o abnormal findings Z01.20 [facility] [address] [id number] [address] [place] [address] [id number] Mar, Dental examination Z01.20 [facility] [address] [id number] [address] [place] [address] 12 Jan, 2017 [facility] [address] [id number] [address] [place] [address] Jan, [facility] [address] [id number] [address] [place] [phone] 10 Jan, 2017 Mild intellectual disability F70 ; Bipolar disorder, unspecified F31.9 and Intermittent explosive disorder in adult F63.81 [facility] [address] [id number] [address] [place] [id number] 02 Jan, 2017 Diabetes E11.9 [facility] [address] [id number] [address] [place] [address] [id number] 13 Dec, 2016 Encounter for dental examina tion and cleaning without abnormal findings Z01.20 [facility] [address] [id number] [address] [place] [id number] 12 Dec, 2016 Bipolar disorder, unspecifie d F31.9 ; Intermittent explosive disorder in adult F63.81 and Mild intellectual disability F70 [facility] [address] [id number] [address] [place] [address] Nov, Diabetes E11.9 [facility] [address] [id number] [address] [place] [address] Nov, [facility] [address] [id number] [address] [place] [address] Nov, Diabetes E11.9 and Colon can cer screening Z12.11 [facility] [address] [facility] [address] [id number] [id number] 21 Sep, 2016 Dental examination Z01.20 [facility] [address] [id number] [address] [place] [address] [id number] 21 Sep, 2016 Encounter for dental examina tion and cleaning without abnormal findings Z01.20 [facility] [address] [id number] [address] [place] [address] 13 Sep, 2016 Bipolar disorder, unspecifie d F31.9 [facility] [address] [id number] [address] [place] [address] 12 Sep, 2016 Bipolar disorder, unspecifie d F31.9 [facility] [address] [id number] [address] [place] [phone] Jul, [facility] [address] [facility] [id number] [address] [place] [phone] Jul, Type 2 diabetes mellitus wit h complication E11.8 [facility] [address] [id number] [address] [place] [address] [id number] 15 Jun, 2016 Encounter for dental examina tion and cleaning without abnormal findings Z01.[address] [id number] [id number] 15 Jun, 2016 Dental examination Z01.20 [facility] [address] [facility] [id number] [address] [place] [id number] 18 Apr, 2016 Sports physical Z02.5 [facility] [address] [id number] [address] [place] [id number] 14 Mar, 2016 Bipolar disorder, in partial remission, most recent episode manic F31.73 and Intermittent explosive disorder in adult F63.81 [facility] [address] [id number] [address] [place] [phone] 08 Mar, 2016 [facility] [address] [facility] [id number] [address] [place] [phone] 06 Dec, 2016 Diabetes E11.9 [facility] [address] [id number] [address] [place] [address] [id number] Feb, Encounter for dental examina tion and cleaning without abnormal findings Z01.20 [facility] [address] [id number] [address] [place] [address] 22 Dec, 2015 Nocturnal hypoxemia G47.34 a nd Encounter for immunization Z23 [facility] [address] [facility] [id number] [address] [place] [id number] 15 Dec, 2015 [facility] [address] [id number] [address] [place] [address] Dec, [facility] [address] [facility] [id number] [address] [place] [address] Dec, Bipolar disorder, unspecifie d F31.9 [facility] [address] [id number] [address] [place] [address] [id number] Oct, Encounter for dental examina tion and cleaning without abnormal findings Z01.20 [facility] [place] [id number] [place] [address] [id number] Oct, Dental examination Z01.20 [facility] [address] [facility] [id number] [address] [place] [address] Oct, Diabetes E11.9 [facility] [address] [facility] [id number] [address] [place] [address] Oct, Diabetes E11.9 ; Reactive ai rway disease, mild intermittent, uncomplicated J45.20 and Tobacco abuse Z72.0 [facility] [address] [facility] [id number] [address] [place] [address] Sep, Bipolar disorder, unspecifie d F31.9 and Depression F32.9 [place] [id number] [facility] [id number] [address] [place] [address] Sep, [facility] [address] [facility] [id number] [address] [place] [phone] August, Tinea pedis of both feet B35 .3 and DM w/o complication type II, uncontrolled E11.65 [place] [id number] [address] Jul, [place] [address] [id number] Jul, [place] [address] [address] Jul, Obstructive sleep apnea G47. 33 [place] [address] [address] Jun, Diabetes E11.9 [place] [address] [address] Jun, [place] [address] [address] Jun, [place] [address] [address] Jun, Bipolar disorder, unspecifie d F31.9 and Mental retardation F79 [place] [address] [address] Apr, [place] [address] [address] Feb, Diabetes E11.9 ; Encounter f or immunization Z23 ; Cough R05 and Nicotine abuse Z72.0 [place] [address] [address] Jan, Bipolar disorder, unspecifie d F31.9 and Diabetes mellitus without mention of complication, type II or unspecified type, uncontrolled 250.02 [place] [address] [address] Jan, [place] [address] [address] Dec, Reactive airway disease 493. 90 and Enuresis 788.30 [place] [address] [place] [id number] [address] [place] [address] Dec, [facility] [address] [facility] [id number] [address] [place] [address] Nov, [facility] [address] [facility] [id number] [address] [place] [phone] Nov, [facility] [address] [facility] [id number] [place] [phone] Nov, Annual physical exam V70.0 ; Urinary incontinence 788.30 ; Diabetes 250.00 and Hypertension 401.9 [facility] [address] [id number] [address] [place] [address] Oct, Diabetes mellitus without me ntion of complication, type II or unspecified type, uncontrolled 250.02 [facility] [address] [place] [id number] [address] [place] [address] Oct, Diabetes mellitus without me ntion of complication, type II or unspecified type, uncontrolled 250.02 [facility] [address] [facility] [id number] [address] [place] [phone] Oct, Diabetes mellitus without me ntion of complication, type II or unspecified type, uncontrolled 250.02 [facility] [address] [place] [id number] [address] [place] [address] Oct, [facility] [address] [facility] [id number] [address] [place] [address] Oct, [facility] [address] [place] [id number] [address] [place] [address] Oct, Bipolar disorder, unspecifie d 296.80 [facility] [address] [id number] [place] [address] [id number] Sep, Dental examination V72.2 [facility] [address] [facility] [id number] [address] [place] [address] August, [facility] [address] [id number] [place] [address] [id number] August, Dental examination V72.2 [facility] [address] [id number] [address] [place] [address], [place] [address] August, [facility] [address] [id number] [address] [place] [phone] 14 Jul, 2014 [facility] [address] [id number] [address] [place] [phone] Jul, [facility] [address] [id number] [address] [place] [address] Jun, [facility] [address] [id number] [address] [place] [address], [place] [address] Jun, [facility] [address] [id number] [address] [place] [phone] Jun, [facility] [address] [id number] [address] [place] [address] Jun, [facility] [address] [id number] [address] [place] [address] May, [facility] [address] [id number] [address] [place] [phone] May, [facility] [address] [id number] [address] [place] [address] 16 May, 2014 [facility] [address] [id number] [address] [place] [phone] 16 May, 2014 [facility] [address] [id number] [address] [place] [phone] May, 2014 [facility] [address] [id number] [address] [place] [address] May, 2014 [facility] [address] [id number] [address] [place] [id number] 16 May, 2014 [facility] [address] [id number] [address] [place] [phone] May, [facility] [address] [id number] [address] [place] [address], [place] [address] May, 2014 [facility] [address] [id number] [address] [place] [address], [place] [address] May, 2014 [facility] [address] [id number] [address] [place] [address], [place] [address] May, 2014 [facility] [address] [id number] [address] [place] [address], [place] [address] May, 2014 [facility] [address] [id number] [address] [place] [address], [place] [address] May, 2014 [facility] [address] [id number] [address] [place] [address], [place] [address] May, 2014 [facility] [address] [id number] [address] [place] [address], [place] [address] May, [facility] [address] [id number] [address] [place] [address], [place] [address] Apr, [facility] [address] [id number] [address] [place] [address], [place] [address] Apr, [facility] [address] [id number] [address] [place] [address], [place] [address] Apr, [facility] [address] [id number] [address] [place] [address], [place] [address] Apr, [facility] [address] [id number] [address] [place] [address], [place] [address] Apr, [facility] [address] [id number] [address] [place] [address], [place] [address] Apr, [facility] [address] [id number] [address] [place] [address], [place] [address] Apr, [facility] [address] [id number] [address] [place] [address], [place] [address] Apr, [facility] [address] [id number] [address] [place] [address], [place] [address] Apr, [facility] [address] [id number] [address] [place] [address], [place] [address] Apr, [facility] [address] [id number] [address] [place] [address], [place] [address] Apr, [facility] [address] [id number] [address] [place] [address], [place] [address] Apr, [facility] [address] [id number] [address] [place] [address], [place] [address] Mar, [facility] [address] [id number] [address] [place] [address], [place] [address] Mar, [facility] [address] [id number] [address] [place] [address], [place] [address] Mar, [facility] [address] [id number] [address] [place] [address], [place] [address] Mar, [facility] [address] [id number] [address] [place] [address], [place] [address] Mar, [facility] [address] [id number] [address] [place] [address], [place] [address] Mar, [facility] [address] [id number] [address] [place] [address], [place] [address] Feb, [facility] [address] [id number] [address] [place] [address], [place] [address] Feb, [facility] [address] [id number] [address] [place] [address], [place] [address] Feb, [facility] [address] [id number] [address] [place] [address], [place] [address] Feb, [facility] [address] [id number] [address] [place] [address], [place] [address] 14 Jan, 2014 [facility] [address] [id number] [address] [place] [address], [place] [id number] 14 Jan, 2014 [facility] [address] [id number] [address] [place] [address], [place] [id number] Jan, [facility] [address] [id number] [address] [place] [address], [place] [id number] Jan, [facility] [address] [id number] [address] [place] [address], [place] [id number] Dec, [facility] [address] [id number] [address] [place] [address], [place] [id number] Dec, [facility] [address] [id number] [address] [place] [address], [place] [id number] Dec, [facility] [address] [id number] [address] [place] [address], [place] [id number] Dec, [facility] [address] [id number] [address] [place] [address], [place] [id number] Nov, [facility] [address] [id number] [address] [place] [address], [place] [id number] Nov, [facility] [address] [id number] [address] [place] [address], [place] [id number] Nov, [facility] [address] [id number] [address] [place] [address], [place] [id number] Nov, [facility] [address] [id number] [address] [place] [address], [place] [id number] Nov, [facility] [address] [id number] [address] [place] [address], [place] [id number] Nov, [facility] [address] [id number] [address] [place] [address], [place] [id number] Nov, [facility] [address] [id number] [address] [place] [address], [place] [id number] Oct, [facility] [address] [id number] [address] [place] [address], [place] [id number] Oct, [facility] [facility] [address] [id number] [address] [place] [address], [place] [id number] Oct, [facility] [address] [id number] [facility] [address] Oct, [facility] [address] [id number] [address] [place] [address], [place] [id number] Oct, [facility] [address] [id number] [address] [place] [address], [place] [address] Oct, [facility] [address] [id number] [address] [place] [address], [place] [id number] Oct, [facility] [address] [id number] [address] [place] [address], [place] [address] Sep, [facility] [address] [id number] [address] [place] [address], [place] [id number] Sep, [facility] [address] [id number] [address] [place] [address], [place] [address] Sep, [facility] [address] [id number] [address] [place] [address], [place] [id number] Sep, [facility] [address] [id number] [address] [place] [address], [place] [address] Sep, [facility] [address] [id number] [address] [place] [address], [place] [address] Jul, [facility] [address] [id number] [address] [place] [address], [place] [address] Jul, [facility] [address] [id number] [address] [place] [address], [place] [address] Jul, [facility] [address] [id number] [address] [place] [address], [place] [address] Jul, [facility] [address] [id number] [address] [place] [address], [place] [id number] Jul, [facility] [address] [id number] [address] [place] [address], [place] [address] Jul, [facility] [address] [id number] [facility] [address] Jul, [facility] [address] [id number] [facility] [address] Jul, [facility] [address] [id number] [facility] [address] Jul, [facility] [address] [id number] [address] [place] [address], [place] [address] Jul, [facility] [address] [id number] [address] [place] [address], [place] [address] Jul, [facility] [address] [id number] [address] [place] [address], [place] [address] Jul, [facility] [address] [id number] [address] [place] [address], [place] [address] Jun, [facility] [address] [id number] [address] [place] [address], [place] [address] Jun, [facility] [address] [id number] [address] [place] [address], [place] [id number] Jun, [facility] [address] [id number] [address] [place] [address], [place] [address] Jun, [facility] [address] [id number] [address] [place] [address], [place] [address] Jun, [facility] [address] [id number] [address] [place] [address], [place] [address] Jun, [facility] [address] [id number] [address] [place] [address], [place] [id number] Jun, [facility] [address] [id number] [address] [place] [address], [place] [address] Jun, [facility] [address] [id number] [address] [place] [address], [place] [address] May, [facility] [address] [id number] [address] [place] [address], [place] [address] May, [facility] [address] [id number] [address] [place] [address], [place] [address] May, [facility] [address] [id number] [address] [place] [address], [place] [address] May, [facility] [address] [id number] [address] [place] [address], [place] [id number] May, [facility] [address] [id number] [address] [place] [address], [place] [address] May, [facility] [address] [id number] [address] [place] [address], [place] [address] May, [facility] [address] [id number] [address] [place] [address], [place] [address] May, [facility] [address] [id number] [address] [place] [address], [place] [address] Apr, [facility] [address] [id number] [address] [place] [address], [place] [address] Apr, [facility] [address] [id number] [address] [place] [address], [place] [address] Apr, [facility] [address] [id number] [address] [place] [address], [place] [address] Apr, [facility] [address] [id number] [address] [place] [address], [place] [id number] Mar, [facility] [address] [id number] [address] [place] [address], [place] [address] Mar, [facility] [address] [id number] [address] [place] [address], [place] [id number] Mar, [facility] [address] [id number] [address] [place] [address], [place] [address] Feb, [facility] [address] [id number] [address] [place] [address], [place] [address] Feb, [facility] [address] [id number] [address] [place] [address], [place] [address] Feb, [facility] [address] [id number] [address] [place] [address], [place] [address] Feb, [facility] [address] [id number] [address] [place] [address], [place] [address] Feb, [facility] [address] [id number] [address] [place] [address], [place] [address] Feb, [facility] [address] [id number] [address] [place] [address], [place] [address] Jan, [facility] [address] [id number] [address] [place] [address], [place] [address] Jan, [facility] [address] [id number] [address] [place] [address], [place] [address] Jan, [facility] [address] [id number] [address] [place] [address], [place] [address] Jan, [facility] [address] [id number] [address] [place] [address], [place] [address] Jan, [facility] [address] [id number] [address] [place] [address], [place] [address] Jan, [facility] [address] [id number] [address] [place] [address], [place] [address] Jan, [facility] [address] [id number] [address] [place] [address], [place] [address] 25 Dec, 2012 [facility] [address] [id number] [address] [place] [address], [place] [address] 16 Dec, 2012 [facility] [address] [id number] [address] [place] [address], [place] [id number] 10 Dec, 2012 [facility] [address] [id number] [address] [place] [address], [place] [id number] 05 Dec, 2012 [facility] [address] [id number] [address] [place] [address], [place] [address] Nov, [facility] [address] [id number] [address] [place] [address], [place] [address] Nov, [facility] [address] [id number] [address] [place] [address], [place] [address] Nov, [facility] [address] [id number] [address] [place] [address], [place] [address] Nov, [facility] [address] [id number] [address] [place] [address], [place] [address] Nov, [facility] [address] [id number] [address] [place] [address], [place] [address] Nov, [facility] [address] [id number] [address] [place] [address], [place] [id number] Nov, [facility] [address] [id number] [address] [place] [address], [place] [address] Oct, [facility] [address] [id number] [address] [place] [address], [place] [address] Oct, [facility] [address] [id number] [address] [place] [address], [place] [address] Oct, [facility] [address] [id number] [address] [place] [address], [place] [address] Oct, [facility] [address] [id number] [address] [place] [address], [place] [address] Oct, [facility] [address] [id number] [address] [place] [address], [place] [address] Oct, [facility] [address] [id number] [address] [place] [address], [place] [address] Oct, [facility] [address] [id number] [address] [place] [address], [place] [address] Oct, [facility] [address] [id number] [address] [place] [address], [place] [address] Sep, [facility] [id number] [id number] 30 Aug, 2012 [facility] [address] [id number] [address] [place] [address], [place] [address] August, [facility] [address] [id number] [address] [place] [address], [place] [address] Jul, [facility] [address] [id number] [address] [place] [address], [place] [address] Jul, [facility] [address] [id number] [address] [place] [address], [place] [address] Jul, [facility] [address] [id number] [address] [place] [address], [place] [address] Jul, [facility] [address] [id number] [address] [place] [address], [place] [address] Jul, [facility] [address] [id number] [address] [place] [address], [place] [id number] Jul, [facility] [address] [id number] [address] [place] [address], [place] [id number] Jul, [facility] [address] [id number] [address] [place] [address], [place] [id number] Jun, [facility] [address] [id number] [address] [place] [address], [place] [address] Jun, [facility] [address] [id number] [address] [place] [address], [place] [address] Jun, [facility] [address] [id number] [address] [place] [id number] Jun, [facility] [address] [id number] [address] [place] [id number] Jun, [facility] [address] [id number] [address] [place] [address], [place] [address] May, [facility] [address] [id number] [address] [place] [phone] May, [facility] [address] [id number] [address] [place] [address], [place] [address] 04 May, 2012 [facility] [address] [id number] [address] [place] [address], [place] [id number] 15 Apr, 2012 [facility] [address] [id number] [address] [place] [address], [place] [address] 14 Apr, 2012 [facility] [address] [id number] [address] [place] [address], [place] [address] Apr, [facility] [address] [id number] [address] [place] [address], [place] [id number] Mar, [facility] [address] [id number] [address] [place] [address], [place] [address] Mar, [facility] [address] [id number] [address] [place] [address], [place] [address] Mar, [facility] [address] [id number] [address] [place] [address], [place] [id number] Mar, [facility] [address] [id number] [address] [place] [address], [place] [address] Mar, [facility] [address] [id number] [address] [place] [address], [place] [address] Mar, [facility] [address] [id number] [address] [place] [address], [place] [address] Feb, [facility] [address] [id number] [address] [place] [address], [place] [address] Feb, [facility] [address] [id number] [address] [place] [address], [place] [address] Jan, [facility] [address] [id number] [address] [place] [address], [place] [address] Jan, [facility] [address] [id number] [address] [place] [address], [place] [address] Dec, [facility] [address] [id number] [address] [place] [address], [place] [id number] Nov, [facility] [address] [id number] [address] [place] [address], [place] [id number] Nov, [facility] [address] [id number] [address] [place] [address], [place] [address] Nov, [facility] [address] [id number] [address] [place] [address], [place] [id number] Nov, [facility] [address] [id number] [address] [place] [address], [place] [id number] Oct, [facility] [address] [id number] [address] [place] [address], [place] [id number] Oct, [facility] [address] [id number] [address] [place] [address], [place] [id number] Oct, [facility] [address] [id number] [address] [place] [address], [place] [id number] Sep, [facility] [address] [id number] [address] [place] [address], [place] [id number] Sep, [facility] [address] [id number] [address] [place] [address], [place] [id number] Sep, [facility] [address] [id number] [address] [place] [address], [place] [address] August, [facility] [address] [id number] [address] [place] [address], [place] [address] August, [facility] [address] [id number] [address] [place] [address], [place] [id number] Jul, [facility] [address] [id number] [address] [place] [address], [place] [address] 24 Jul, 2011 [facility] [address] [id number] [address] [place] [address], [place] [id number] 17 Jul, 2011 [facility] [address] [id number] [address] [place] [address], [place] [id number] Jul, [facility] [address] [id number] [address] [place] [address], [place] [id number] 14 Jun, 2011 [facility] [address] [id number] [address] [place] [address], [place] [address] May, [facility] [address] [id number] [address] [place] [address], [place] [id number] Apr, [facility] [address] [id number] [address] [place] [address], [place] [id number] Apr, [facility] [address] [id number] [address] [place] [address], [place] [id number] Apr, [facility] [address] [id number] [address] [place] [address], [place] [id number] Apr, [facility] [address] [id number] [address] [place] [address], [place] [address] Apr, [facility] [address] [id number] [address] [place] [address], [place] [id number] Apr, [facility] [address] [id number] [address] [place] [address], [place] [id number] Mar, [facility] [address] [id number] [address] [place] [address], [place] [id number] Mar, [facility] [address] [id number] [address] [place] [address], [place] [id number] Feb, [facility] [address] [id number] [address] [place] [address], [place] [id number] Feb, [facility] [address] [id number] [address] [place] [address], [place] [id number] Feb, [facility] [address] [id number] [address] [place] [address], [place] [id number] Feb, [facility] [address] [id number] [address] [place] [address], [place] [id number] Jan, [facility] [address] [id number] [address] [place] [address], [place] [phone] Jan, [facility] [address] [id number] [address] [place] [address], [place] [phone] 18 Jan, 2011 [facility] [address] [id number] [address] [place] [address], [place] [phone] 18 Jan, 2011 [facility] [address] [id number] [address] [place] [address], [place] [phone] 17 Nov, 2010 [facility] [address] [id number] [address] [place] [address], [place] [id number] Mar, [facility] [address] [id number] [address] [place] [address], [place] [id number] Mar, [facility] [address] [id number] [address] [place] [address], [place] [phone] 30 Feb, 2010 [facility] [address] [id number] [address] [place] [address], [place] [phone] 15 Feb, 2010 [facility] [address] [id number] [address] [place] [address], [place] [phone] Jan, [facility] [address] [id number] [address] [place] [address], [place] [phone] Jan, [facility] [address] [id number] [address] [place] [phone] Sep, [facility] [address] [id number] [address] [place] [address], [place] [phone] May, [facility] [address] [id number] [address] [place] [id number] Apr, [facility] [address] [id number] [address] [place] [address], [place] [id number] Mar, [facility] [address] [id number] [address] [place] [id number] 15 Feb, 2009 [facility] [address] [id number] [address] [place] [address], [place] [phone] Feb, [facility] [address] [id number] [address] [place] [phone] 10 Feb, 2009 [facility] [address] [facility] [id number] [address] [place] [id number] 22 Jan, 2009 [facility] [address] [facility] [id number] [address] [place] [id number] 13 Jan, 2009 [facility] [address] [facility] [id number] [address] [place] [phone] Jan, [facility] [address] [facility] [id number] [address] [place] [phone] 11 Jan, 2009 [facility] [address] [facility] [id number] [address] [place] [phone] August, IMMUNIZATIONS No Known Immunizations SOCIAL HISTORY [...] History surgery Hospitalization History [facility], in[facility] tie treatment few times for BH
--- OUTSIDE RECORDS SUMMARY | 2019-09-29 10:52 | XMS REPORT ---
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 Active 69080490 Problem Open-angle glaucoma of both eyes, unspecified glaucoma stage, unspecified open-angle glaucoma type H40.10X0 Acti ve 95154562 Problem Adjustment disorder, unspecified type F43.20 Active 64170829 Problem Obstructive sleep apnea G47.33 Active 08291503 Problem Hypertensive retinopathy of both eyes H35.033 Active 9510753 Problem Type 2 diabetes mellitus with complication E11.8 Active 16877214 Problem Essential hypertension I10 Active 01211721 Problem Diabetes E11.9 Active 36445882 Problem Bipolar disorder, in partial remission, most rec ent episode manic F31.73 Active 92704833 Problem Intermittent explosive disorder in adult F63.81 Active 70109907 Problem Other diabetic neurological complication associated with type 2 diabetes mellitus E11.49 Active 842082551 Problem Depression F32.9 Active 31397255 Problem Neuropathy G62.9 Active 122869281 Problem Intermittent explosive disorder F63.81 Active 10712547 Problem Bipolar disorder, unspecified F31.9 Active 04144513 Problem Mild intellectual disability F70 A ctive 24303904 Problem Reactive airway disease, mild intermittent, uncomplicated J45.20 Active 601063873 Problem Gastroesophageal reflux disease without esophagitis K21.9 Active 368069988 ALLERGIES No Information ENCOUNTERS Encounter Location Date Diagnosis [facility] [address] [facility] [id number] [address] [place] [address] 24 Dec, 2018 [facility] [address] [facility] [id number] [address] [place] [phone] Oct, OUTREACH [facility] [address] [facility] [id number] [place] [phone] Oct, Oral health maintenance stat us requiring routine preventive dental care K08.9 [facility] [address] [facility] [id number] [address] [place] [address] August, Intermittent explosive disor salvatore in adult F63.81 ; Bipolar disorder, unspecified F31.9 and Mild intellectual disability F70 [facility] [address] [facility] [id number] [address] [place] [address] [id number] August, Dental caries K02.9 [facility] [address] [facility] [id number] [address] [place] [address] Jul, Onychomycosis B35.1 ; Other diabetic neurological complication associated with type 2 diabetes mellitus E11.49 and Tinea pedis of both feet B35.3 [facility] [address] [facility] [id number] [address] [place] [address] [id number] Jul, Caries K02.9 [facility] [address] [facility] [id number] [address] [place] [address] Jul, Type 2 diabetes mellitus wit h complication E11.8 ; Tobacco abuse Z72.0 and Bipolar disorder, unspecified F31.9 [facility] [address] [facility] [id number] [address] [place] [address] Jun, [facility] [address] [facility] [id number] [address] [place] [address] [id number] Jun, Dental examination Z01.20 an d Oral health maintenance status requiring routine preventive dental care K08.9 [facility] [address] [facility] [id number] [address] [place] [address] May, Bilateral impacted cerumen H 61.23 [facility] [address] [facility] [id number] [address] [place] [address] Apr, Bipolar disorder, unspecifie d F31.9 ; Intermittent explosive disorder in adult F63.81 ; Type 2 diabetes mellitus with complication E11.8 ; Tobacco abuse Z72.0 and Colon cancer screening Z12.11 [facility] [address] [place] [id number] [address] [place] [address] Apr, Onychomycosis B35.1 and Othe r diabetic neurological complication associated with type 2 diabetes mellitus E11.49 [facility] [address] [place] [id number] [address] [place] [address] Apr, Intermittent explosive disor salvatore in adult F63.81 ; Bipolar disorder, unspecified F31.9 and Mild intellectual disability F70 [facility] [id number] [place] [address] 03 Mar, 2018 Diabetes E11.9 [facility] [address] [place] [id number] [address] [place] [phone] Jan, Encounter for immunization Z 23 [facility] [address] [place] [id number] [address] [place] [phone] Jan, Tinea pedis of both feet B35 .3 ; Other diabetic neurological complication associated with type 2 diabetes mellitus E11.49 and Onychomycosis B35.1 [facility] [address] [place] [address] Nov, Type 2 diabetes mellitus wit h complication E11.8 [facility] [address] [place] [address] Nov, [facility] [address] [place] [id number] [address] [place] [address] Oct, Intermittent explosive disor salvatore in adult F63.81 ; Bipolar disorder, unspecified F31.9 and Mild intellectual disability F70 [facility] [address] [place] [id number] [address] [place] [phone] Oct, [facility] [address] [place] [id number] [address] [place] [address] [id number] Oct, Dental examination Z01.20 [facility] [address] [place] [address] Oct, Onychomycosis B35.1 and Othe r diabetic neurological complication associated with type 2 diabetes mellitus E11.49 [place] [address] [place] [address] Sep, Type 2 diabetes mellitus wit h complication E11.8 and Colon cancer screening Z12.11 [place] [address] [address] Sep, Type 2 diabetes mellitus wit h complication E11.8 ; Colon cancer screening Z12.11 and Neuropathy G62.9 [place] [address] [address] August, Diabetes E11.9 [facility] [address] [place] [id number] [address] [place] [address] [id number] Jul, Dental examination Z01.20 [place] [address] [place] [id number] [address] [place] [address] May, Mild intellectual disability F70 [place] [address] [address] May, Mild intellectual disability F70 ; High risk medication use Z79.899 ; Intermittent explosive disorder in adult F63.81 and Bipolar disorder, unspecified F31.9 [place] [address] [place] [id number] [address] [place] [address] May, [place] [address] [place] [id number] [address] [place] [address] May, [place] [address] [place] [id number] [address] [place] [address] Apr, Type 2 diabetes mellitus wit h complication E11.8 ; Mild intellectual disability F70 ; Gastroesophageal reflux disease without esophagitis K21.9 ; Reactive airway disease, mild intermittent, uncomplicated J45.20 and Tobacco abuse Z72.0 [place] [id number] [address] [place] [address] Apr, High risk medication use Z79 .899 ; Mild intellectual disability F70 ; Intermittent explosive disorder in adult F63.81 and Bipolar disorder, unspecified F31.9 [facility] [address] [id number] [address] [place] [address] [id number] Mar, Encounter for dental exam an d cleaning w/o abnormal findings Z01.20 [facility] [address] [id number] [address] [place] [address] [id number] Mar, Dental examination Z01.20 [facility] [address] [id number] [address] [place] [phone] 12 Jan, 2017 [facility] [address] [id number] [address] [place] [phone] Jan, [facility] [address] [id number] [address] [place] [phone] 10 Jan, 2017 Mild intellectual disability F70 ; Bipolar disorder, unspecified F31.9 and Intermittent explosive disorder in adult F63.81 [facility] [address] [id number] [address] [place] [id number] 02 Jan, 2017 Diabetes E11.9 [facility] [address] [id number] [address] [place] [address] [id number] 13 Dec, 2016 Encounter for dental examina tion and cleaning without abnormal findings Z01.20 [facility] [address] [id number] [address] [place] [address] 12 Dec, 2016 Bipolar disorder, unspecifie d F31.9 ; Intermittent explosive disorder in adult F63.81 and Mild intellectual disability F70 [facility] [address] [id number] [address] [place] [phone] Nov, Diabetes E11.9 [facility] [address] [id number] [address] [place] [phone] Nov, [facility] [address] [id number] [address] [place] [address] Nov, Diabetes E11.9 and Colon can cer screening Z12.11 [facility] [address] [id number] [id number] 21 Sep, 2016 Dental examination Z01.20 [facility] [address] [id number] [address] [place] [address] [id number] 21 Sep, 2016 Encounter for dental examina tion and cleaning without abnormal findings Z01.20 [facility] [address] [id number] [address] [place] [address] 13 Sep, 2016 Bipolar disorder, unspecifie d F31.9 [facility] [address] [id number] [address] [place] [address] 12 Sep, 2016 Bipolar disorder, unspecifie d F31.9 [facility] [address] [id number] [address] [place] [phone] Jul, [facility] [address] [facility] [id number] [address] [place] [phone] Jul, Type 2 diabetes mellitus wit h complication E11.8 [facility] [address] [id number] [address] [place] [address] [id number] 15 Jun, 2016 Encounter for dental examina tion and cleaning without abnormal findings Z01.[address] [id number] [id number] 15 Jun, 2016 Dental examination Z01.20 [facility] [address] [facility] [id number] [address] [place] [id number] 18 Apr, 2016 Sports physical Z02.5 [facility] [address] [id number] [address] [place] [address] 14 Mar, 2016 Bipolar disorder, in partial remission, most recent episode manic F31.73 and Intermittent explosive disorder in adult F63.81 [facility] [address] [id number] [address] [place] [phone] 08 Mar, 2016 [facility] [address] [facility] [id number] [address] [place] [address] 06 Dec, 2016 Diabetes E11.9 [facility] [address] [id number] [address] [place] [address] [id number] Feb, Encounter for dental examina tion and cleaning without abnormal findings Z01.20 [facility] [address] [id number] [address] [place] [phone] 22 Dec, 2015 Nocturnal hypoxemia G47.34 a nd Encounter for immunization Z23 [facility] [address] [facility] [id number] [address] [place] [phone] 15 Dec, 2015 [facility] [address] [id number] [address] [place] [phone] Dec, [facility] [address] [facility] [id number] [address] [place] [address] Dec, Bipolar disorder, unspecifie d F31.9 [facility] [address] [id number] [address] [place] [address] [id number] Oct, Encounter for dental examina tion and cleaning without abnormal findings Z01.20 [facility] [place] [id number] [place] [address] [id number] Oct, Dental examination Z01.20 [facility] [address] [facility] [id number] [address] [place] [address] Oct, Diabetes E11.9 [facility] [address] [facility] [id number] [address] [place] [phone] Oct, Diabetes E11.9 ; Reactive ai rway disease, mild intermittent, uncomplicated J45.20 and Tobacco abuse Z72.0 [facility] [address] [facility] [id number] [address] [place] [address] Sep, Bipolar disorder, unspecifie d F31.9 and Depression F32.9 [place] [address] [facility] [id number] [address] [place] [phone] Sep, [facility] [address] [facility] [id number] [address] [place] [address] August, Tinea pedis of both feet B35 .3 and DM w/o complication type II, uncontrolled E11.65 [place] [address] [address] Jul, [place] [address] [address] Jul, [place] [address] [address] Jul, Obstructive sleep apnea G47. 33 [place] [address] [address] Jun, Diabetes E11.9 [place] [address] [address] Jun, [place] [address] [address] Jun, [place] [address] [address] Jun, Bipolar disorder, unspecifie d F31.9 and Mental retardation F79 [place] [address] [address] Apr, [place] [address] [address] Feb, Diabetes E11.9 ; Encounter f or immunization Z23 ; Cough R05 and Nicotine abuse Z72.0 [place] [address] [address] Jan, Bipolar disorder, unspecifie d F31.9 and Diabetes mellitus without mention of complication, type II or unspecified type, uncontrolled 250.02 [place] [address] [address] Jan, [place] [address] [address] Dec, Reactive airway disease 493. 90 and Enuresis 788.30 [place] [address] [place] [id number] [address] [place] [address] Dec, [facility] [address] [facility] [id number] [address] [place] [phone] Nov, [facility] [address] [facility] [id number] [address] [place] [phone] Nov, [facility] [address] [facility] [id number] [place] [address] Nov, Annual physical exam V70.0 ; Urinary incontinence 788.30 ; Diabetes 250.00 and Hypertension 401.9 [facility] [address] [id number] [address] [place] [address] Oct, Diabetes mellitus without me ntion of complication, type II or unspecified type, uncontrolled 250.02 [facility] [address] [place] [id number] [address] [place] [address] Oct, Diabetes mellitus without me ntion of complication, type II or unspecified type, uncontrolled 250.02 [facility] [address] [facility] [id number] [address] [place] [address] Oct, Diabetes mellitus without me ntion of complication, type II or unspecified type, uncontrolled 250.02 [facility] [address] [place] [id number] [address] [place] [address] Oct, [facility] [address] [facility] [id number] [address] [place] [address] Oct, [facility] [address] [place] [id number] [address] [place] [address] Oct, Bipolar disorder, unspecifie d 296.80 [facility] [address] [id number] [place] [address] [id number] Sep, Dental examination V72.2 [facility] [address] [facility] [id number] [address] [place] [address] August, [facility] [address] [id number] [place] [address] [id number] August, Dental examination V72.2 [facility] [address] [id number] [address] [place] [address], [place] [address] August, [facility] [address] [id number] [address] [place] [id number] 14 Jul, 2014 [facility] [address] [id number] [address] [place] [phone] Jul, [facility] [address] [id number] [address] [place] [phone] Jun, [facility] [address] [id number] [address] [place] [address], [place] [address] Jun, [facility] [address] [id number] [address] [place] [address] Jun, [facility] [address] [id number] [address] [place] [address] Jun, [facility] [address] [id number] [address] [place] [address] May, [facility] [address] [id number] [address] [place] [address] May, [facility] [address] [id number] [address] [place] [address] 16 May, 2014 [facility] [address] [id number] [address] [place] [id number] 16 May, 2014 [facility] [address] [id number] [address] [place] [address] May, 2014 [facility] [address] [id number] [address] [place] [phone] May, 2014 [facility] [address] [id number] [address] [place] [phone] 16 May, 2014 [facility] [address] [id number] [address] [place] [address] May, [facility] [address] [id number] [address] [place] [address], [place] [address] May, 2014 [facility] [address] [id number] [address] [place] [address], [place] [address] May, 2014 [facility] [address] [id number] [address] [place] [address], [place] [address] May, 2014 [facility] [address] [id number] [address] [place] [address], [place] [address] May, 2014 [facility] [address] [id number] [address] [place] [address], [place] [address] May, 2014 [facility] [address] [id number] [address] [place] [address], [place] [address] May, 2014 [facility] [address] [id number] [address] [place] [address], [place] [address] May, [facility] [address] [id number] [address] [place] [address], [place] [address] Apr, [facility] [address] [id number] [address] [place] [address], [place] [address] Apr, [facility] [address] [id number] [address] [place] [address], [place] [address] Apr, [facility] [address] [id number] [address] [place] [address], [place] [address] Apr, [facility] [address] [id number] [address] [place] [address], [place] [address] Apr, [facility] [address] [id number] [address] [place] [address], [place] [address] Apr, [facility] [address] [id number] [address] [place] [address], [place] [address] Apr, [facility] [address] [id number] [address] [place] [address], [place] [address] Apr, [facility] [address] [id number] [address] [place] [address], [place] [address] Apr, [facility] [address] [id number] [address] [place] [address], [place] [address] Apr, [facility] [address] [id number] [address] [place] [address], [place] [address] Apr, [facility] [address] [id number] [address] [place] [address], [place] [address] Apr, [facility] [address] [id number] [address] [place] [address], [place] [address] Mar, [facility] [address] [id number] [address] [place] [address], [place] [address] Mar, [facility] [address] [id number] [address] [place] [address], [place] [address] Mar, [facility] [address] [id number] [address] [place] [address], [place] [address] Mar, [facility] [address] [id number] [address] [place] [address], [place] [address] Mar, [facility] [address] [id number] [address] [place] [address], [place] [address] Mar, [facility] [address] [id number] [address] [place] [address], [place] [address] Feb, [facility] [address] [id number] [address] [place] [address], [place] [address] Feb, [facility] [address] [id number] [address] [place] [address], [place] [address] Feb, [facility] [address] [id number] [address] [place] [address], [place] [address] Feb, [facility] [address] [id number] [address] [place] [address], [place] [address] 14 Jan, 2014 [facility] [address] [id number] [address] [place] [address], [place] [address] 14 Jan, 2014 [facility] [address] [id number] [address] [place] [address], [place] [address] Jan, [facility] [address] [id number] [address] [place] [address], [place] [address] Jan, [facility] [address] [id number] [address] [place] [address], [place] [address] Dec, [facility] [address] [id number] [address] [place] [address], [place] [address] Dec, [facility] [address] [id number] [address] [place] [address], [place] [address] Dec, [facility] [address] [id number] [address] [place] [address], [place] [address] Dec, [facility] [address] [id number] [address] [place] [address], [place] [address] Nov, [facility] [address] [id number] [address] [place] [address], [place] [id number] Nov, [facility] [address] [id number] [address] [place] [address], [place] [address] Nov, [facility] [address] [id number] [address] [place] [address], [place] [id number] Nov, [facility] [address] [id number] [address] [place] [address], [place] [address] Nov, [facility] [address] [id number] [address] [place] [address], [place] [address] Nov, [facility] [address] [id number] [address] [place] [address], [place] [address] Nov, [facility] [address] [id number] [address] [place] [address], [place] [address] Oct, [facility] [address] [id number] [address] [place] [address], [place] [address] Oct, [facility] [address] [id number] [address] [place] [address], [place] [id number] Oct, [facility] [address] [id number] [facility] [place] [address] Oct, [facility] [address] [id number] [address] [place] [address], [place] [address] Oct, [facility] [address] [id number] [address] [place] [address], [place] [address] Oct, [facility] [address] [id number] [address] [place] [address], [place] [address] Oct, [facility] [address] [id number] [address] [place] [address], [place] [address] Sep, [facility] [address] [id number] [address] [place] [address], [place] [address] Sep, [facility] [address] [id number] [address] [place] [address], [place] [address] Sep, [facility] [address] [id number] [address] [place] [address], [place] [address] Sep, [facility] [address] [id number] [address] [place] [address], [place] [address] Sep, [facility] [address] [id number] [address] [place] [address], [place] [address] Jul, [facility] [address] [id number] [address] [place] [address], [place] [address] Jul, [facility] [address] [id number] [address] [place] [address], [place] [address] Jul, [facility] [address] [id number] [address] [place] [address], [place] [address] Jul, [facility] [address] [id number] [address] [place] [address], [place] [address] Jul, [facility] [address] [id number] [address] [place] [address], [place] [address] Jul, [facility] [address] [id number] [facility] [place] [address] Jul, [facility] [address] [id number] [facility] [place] [address] Jul, [facility] [address] [id number] [facility] [place] [address] Jul, [facility] [address] [id number] [address] [place] [address], [place] [address] Jul, [facility] [address] [id number] [address] [place] [address], [place] [address] Jul, [facility] [address] [id number] [address] [place] [address], [place] [address] Jul, [facility] [address] [id number] [address] [place] [address], [place] [address] Jun, [facility] [address] [id number] [address] [place] [address], [place] [address] Jun, [facility] [address] [id number] [address] [place] [address], [place] [address] Jun, [facility] [address] [id number] [address] [place] [address], [place] [address] Jun, [facility] [address] [id number] [address] [place] [address], [place] [address] Jun, [facility] [address] [id number] [address] [place] [address], [place] [address] Jun, [facility] [address] [id number] [address] [place] [address], [place] [address] Jun, [facility] [address] [id number] [address] [place] [address], [place] [address] Jun, [facility] [address] [id number] [address] [place] [address], [place] [address] May, [facility] [address] [id number] [address] [place] [address], [place] [address] May, [facility] [address] [id number] [address] [place] [address], [place] [address] May, [facility] [address] [id number] [address] [place] [address], [place] [address] May, [facility] [address] [id number] [address] [place] [address], [place] [address] May, [facility] [address] [id number] [address] [place] [address], [place] [address] May, [facility] [address] [id number] [address] [place] [address], [place] [address] May, [facility] [address] [id number] [address] [place] [address], [place] [address] May, [facility] [address] [id number] [address] [place] [address], [place] [address] Apr, [facility] [address] [id number] [address] [place] [address], [place] [address] Apr, [facility] [address] [id number] [address] [place] [address], [place] [address] Apr, [facility] [address] [id number] [address] [place] [address], [place] [address] Apr, [facility] [address] [id number] [address] [place] [address], [place] [address] Mar, [facility] [address] [id number] [address] [place] [address], [place] [address] Mar, [facility] [address] [id number] [address] [place] [address], [place] [address] Mar, [facility] [address] [id number] [address] [place] [address], [place] [address] Feb, [facility] [address] [id number] [address] [place] [address], [place] [address] Feb, [facility] [address] [id number] [address] [place] [address], [place] [address] Feb, [facility] [address] [id number] [address] [place] [address], [place] [address] Feb, [facility] [address] [id number] [address] [place] [address], [place] [address] Feb, [facility] [address] [id number] [address] [place] [address], [place] [address] Feb, [facility] [address] [id number] [address] [place] [address], [place] [address] Jan, [facility] [address] [id number] [address] [place] [address], [place] [address] Jan, [facility] [address] [id number] [address] [place] [address], [place] [address] Jan, [facility] [address] [id number] [address] [place] [address], [place] [address] Jan, [facility] [address] [id number] [address] [place] [address], [place] [address] Jan, [facility] [address] [id number] [address] [place] [address], [place] [address] Jan, [facility] [address] [id number] [address] [place] [address], [place] [address] Jan, [facility] [address] [id number] [address] [place] [address], [place] [address] 25 Dec, 2012 [facility] [address] [id number] [address] [place] [address], [place] [address] 16 Dec, 2012 [facility] [address] [id number] [address] [place] [address], [place] [address] 10 Dec, 2012 [facility] [address] [id number] [address] [place] [address], [place] [address] 05 Dec, 2012 [facility] [address] [id number] [address] [place] [address], [place] [address] Nov, [facility] [address] [id number] [address] [place] [address], [place] [address] Nov, [facility] [address] [id number] [address] [place] [address], [place] [address] Nov, [facility] [address] [id number] [address] [place] [address], [place] [address] Nov, [facility] [address] [id number] [address] [place] [address], [place] [address] Nov, [facility] [address] [id number] [address] [place] [address], [place] [address] Nov, [facility] [address] [id number] [address] [place] [address], [place] [address] Nov, [facility] [address] [id number] [address] [place] [address], [place] [address] Oct, [facility] [address] [id number] [address] [place] [address], [place] [address] Oct, [facility] [address] [id number] [address] [place] [address], [place] [address] Oct, [facility] [address] [id number] [address] [place] [address], [place] [address] Oct, [facility] [address] [id number] [address] [place] [address], [place] [address] Oct, [facility] [address] [id number] [address] [place] [address], [place] [address] Oct, [facility] [address] [id number] [address] [place] [address], [place] [address] Oct, [facility] [address] [id number] [address] [place] [address], [place] [address] Oct, [facility] [address] [id number] [address] [place] [address], [place] [address] Sep, [address] [id number] [id number] 30 Aug, 2012 [facility] [address] [id number] [address] [place] [address], [place] [address] August, [facility] [address] [id number] [address] [place] [address], [place] [address] Jul, [facility] [address] [id number] [address] [place] [address], [place] [address] Jul, [facility] [address] [id number] [address] [place] [address], [place] [address] Jul, [facility] [address] [id number] [address] [place] [address], [place] [address] Jul, [facility] [address] [id number] [address] [place] [address], [place] [address] Jul, [facility] [address] [id number] [address] [place] [address], [place] [address] Jul, [facility] [address] [id number] [address] [place] [address], [place] [address] Jul, [facility] [address] [id number] [address] [place] [address], [place] [address] Jun, [facility] [address] [id number] [address] [place] [address], [place] [address] Jun, [facility] [address] [id number] [address] [place] [address], [place] [address] Jun, [facility] [address] [id number] [address] [place] [id number] Jun, [facility] [address] [id number] [address] [place] [address] Jun, [facility] [address] [id number] [address] [place] [address], [place] [address] May, [facility] [address] [id number] [address] [place] [address] May, [facility] [address] [id number] [address] [place] [address], [place] [address] 04 May, 2012 [facility] [address] [id number] [address] [place] [address], [place] [address] 15 Apr, 2012 [facility] [address] [id number] [address] [place] [address], [place] [address] 14 Apr, 2012 [facility] [address] [id number] [address] [place] [address], [place] [address] Apr, [facility] [address] [id number] [address] [place] [address], [place] [address] Mar, [facility] [address] [id number] [address] [place] [address], [place] [address] Mar, [facility] [address] [id number] [address] [place] [address], [place] [address] Mar, [facility] [address] [id number] [address] [place] [address], [place] [address] Mar, [facility] [address] [id number] [address] [place] [address], [place] [address] Mar, [facility] [address] [id number] [address] [place] [address], [place] [address] Mar, [facility] [address] [id number] [address] [place] [address], [place] [address] Feb, [facility] [address] [id number] [address] [place] [address], [place] [address] Feb, [facility] [address] [id number] [address] [place] [address], [place] [address] Jan, [facility] [address] [id number] [address] [place] [address], [place] [address] Jan, [facility] [address] [id number] [address] [place] [address], [place] [address] Dec, [facility] [address] [id number] [address] [place] [address], [place] [address] Nov, [facility] [address] [id number] [address] [place] [address], [place] [address] Nov, [facility] [address] [id number] [address] [place] [address], [place] [address] Nov, [facility] [address] [id number] [address] [place] [address], [place] [address] Nov, [facility] [address] [id number] [address] [place] [address], [place] [address] Oct, [facility] [address] [id number] [address] [place] [address], [place] [address] Oct, [facility] [address] [id number] [address] [place] [address], [place] [address] Oct, [facility] [address] [id number] [address] [place] [address], [place] [address] Sep, [facility] [address] [id number] [address] [place] [address], [place] [address] Sep, [facility] [address] [id number] [address] [place] [address], [place] [address] Sep, [facility] [address] [id number] [address] [place] [address], [place] [address] August, [facility] [address] [id number] [address] [place] [address], [place] [address] August, [facility] [address] [id number] [address] [place] [address], [place] [address] Jul, [facility] [address] [id number] [address] [place] [address], [place] [address] 24 Jul, 2011 [facility] [address] [id number] [address] [place] [address], [place] [address] 17 Jul, 2011 [facility] [address] [id number] [address] [place] [address], [place] [address] Jul, [facility] [address] [id number] [address] [place] [address], [place] [address] 14 Jun, 2011 [facility] [address] [id number] [address] [place] [address], [place] [address] May, [facility] [address] [id number] [address] [place] [address], [place] [address] Apr, [facility] [address] [id number] [address] [place] [address], [place] [address] Apr, [facility] [address] [id number] [address] [place] [address], [place] [address] Apr, [facility] [address] [id number] [address] [place] [address], [place] [address] Apr, [facility] [address] [id number] [address] [place] [address], [place] [address] Apr, [facility] [address] [id number] [address] [place] [address], [place] [address] Apr, [facility] [address] [id number] [address] [place] [address], [place] [address] Mar, [facility] [address] [id number] [address] [place] [address], [place] [address] Mar, [facility] [address] [id number] [address] [place] [address], [place] [address] Feb, [facility] [address] [id number] [address] [place] [address], [place] [address] Feb, [facility] [address] [id number] [address] [place] [address], [place] [address] Feb, [facility] [address] [id number] [address] [place] [address], [place] [address] Feb, [facility] [address] [id number] [address] [place] [address], [place] [address] Jan, [facility] [address] [id number] [address] [place] [address], [place] [address] Jan, [facility] [address] [id number] [address] [place] [address], [place] [address] 18 Jan, 2011 [facility] [address] [id number] [address] [place] [address], [place] [address] 18 Jan, 2011 [facility] [address] [id number] [address] [place] [address], [place] [address] 17 Nov, 2010 [facility] [address] [id number] [address] [place] [address], [place] [address] Mar, [facility] [address] [id number] [address] [place] [address], [place] [address] Mar, [facility] [address] [id number] [address] [place] [address], [place] [address] 30 Feb, 2010 [facility] [address] [id number] [address] [place] [address], [place] [address] 15 Feb, 2010 [facility] [address] [id number] [address] [place] [address], [place] [address] Jan, [facility] [address] [id number] [address] [place] [address], [place] [address] Jan, [facility] [address] [id number] [address] [place] [id number] Sep, [facility] [address] [id number] [address] [place] [address], [place] [address] May, [facility] [address] [id number] [address] [place] [address] Apr, [facility] [address] [id number] [address] [place] [address], [place] [address] Mar, [facility] [address] [id number] [address] [place] [id number] 15 Feb, 2009 [facility] [address] [id number] [address] [place] [address], [place] [address] Feb, [facility] [address] [id number] [address] [place] [id number] 10 Feb, 2009 [facility] [address] [facility] [id number] [address] [place] [id number] 22 Jan, 2009 [facility] [address] [facility] [id number] [address] [place] [id number] 13 Jan, 2009 [facility] [address] [facility] [id number] [address] [place] [id number] Jan, [facility] [address] [facility] [id number] [address] [place] [id number] 11 Jan, 2009 [facility] [address] [facility] [id number] [address] [place] [id number] August, IMMUNIZATIONS No Known Immunizations SOCIAL HISTORY [...] 7 Hospitalization History surgery Hospitalization History [facility], innj tie treatment few times for BH
--- OUTSIDE RECORDS SUMMARY | 2019-09-29 10:52 | XMS REPORT ---
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 Active 32961641 Problem Open-angle glaucoma of both eyes, unspecified glaucoma stage, unspecified open-angle glaucoma type H40.10X0 Acti ve 83427557 Problem Adjustment disorder, unspecified type F43.20 Active 50357918 Problem Obstructive sleep apnea G47.33 Active 88649604 Problem Hypertensive retinopathy of both eyes H35.033 Active 2154121 Problem Type 2 diabetes mellitus with complication E11.8 Active 28042738 Problem Essential hypertension I10 Active 08002320 Problem Diabetes E11.9 Active 30742752 Problem Bipolar disorder, in partial remission, most rec ent episode manic F31.73 Active 40153427 Problem Intermittent explosive disorder in adult F63.81 Active 25889427 Problem Other diabetic neurological complication associated with type 2 diabetes mellitus E11.49 Active 785438114 Problem Depression F32.9 Active 99936250 Problem Neuropathy G62.9 Active 868894398 Problem Intermittent explosive disorder F63.81 Active 30315261 Problem Bipolar disorder, unspecified F31.9 Active 29653024 Problem Mild intellectual disability F70 A ctive 72237585 Problem Reactive airway disease, mild intermittent, uncomplicated J45.20 Active 880540195 Problem Gastroesophageal reflux disease without esophagitis K21.9 Active 437574515 ALLERGIES No Information ENCOUNTERS Encounter Location Date Diagnosis [facility] [address] [facility] [id number] [address] [place] [address] 24 Dec, 2018 [facility] [address] [facility] [id number] [address] [place] [address] Oct, OUTREACH [facility] [address] [facility] [id number] [place] [phone] Oct, Oral health maintenance stat us requiring routine preventive dental care K08.9 [facility] [address] [facility] [id number] [address] [place] [phone] August, Intermittent explosive disor salvatore in adult F63.81 ; Bipolar disorder, unspecified F31.9 and Mild intellectual disability F70 [facility] [address] [facility] [id number] [address] [place] [address] [id number] August, Dental caries K02.9 [facility] [address] [facility] [id number] [address] [place] [address] Jul, Onychomycosis B35.1 ; Other diabetic neurological complication associated with type 2 diabetes mellitus E11.49 and Tinea pedis of both feet B35.3 [facility] [address] [facility] [id number] [address] [place] [address] [id number] Jul, Caries K02.9 [facility] [address] [facility] [id number] [address] [place] [address] Jul, Type 2 diabetes mellitus wit h complication E11.8 ; Tobacco abuse Z72.0 and Bipolar disorder, unspecified F31.9 [facility] [address] [facility] [id number] [address] [place] [address] Jun, [facility] [address] [facility] [id number] [address] [place] [address] [phone] Jun, Dental examination Z01.20 an d Oral health maintenance status requiring routine preventive dental care K08.9 [facility] [address] [facility] [id number] [address] [place] [address] May, Bilateral impacted cerumen H 61.23 [facility] [address] [facility] [id number] [address] [place] [address] Apr, Bipolar disorder, unspecifie d F31.9 ; Intermittent explosive disorder in adult F63.81 ; Type 2 diabetes mellitus with complication E11.8 ; Tobacco abuse Z72.0 and Colon cancer screening Z12.11 [facility] [address] [place] [id number] [address] [place] [phone] Apr, Onychomycosis B35.1 and Othe r diabetic neurological complication associated with type 2 diabetes mellitus E11.49 [facility] [address] [place] [id number] [address] [place] [address] Apr, Intermittent explosive disor salvatore in adult F63.81 ; Bipolar disorder, unspecified F31.9 and Mild intellectual disability F70 [facility] [address] [place] [address] 03 Mar, 2018 Diabetes E11.9 [facility] [address] [place] [id number] [address] [place] [address] Jan, Encounter for immunization Z 23 [facility] [address] [place] [id number] [address] [place] [phone] Jan, Tinea pedis of both feet B35 .3 ; Other diabetic neurological complication associated with type 2 diabetes mellitus E11.49 and Onychomycosis B35.1 [facility] [address] [place] [address] Nov, Type 2 diabetes mellitus wit h complication E11.8 [facility] [address] [place] [address] Nov, [facility] [address] [place] [id number] [address] [place] [address] Oct, Intermittent explosive disor salvatore in adult F63.81 ; Bipolar disorder, unspecified F31.9 and Mild intellectual disability F70 [facility] [address] [place] [id number] [address] [place] [address] Oct, [facility] [address] [place] [id number] [address] [place] [address] [id number] Oct, Dental examination Z01.20 [facility] [address] [place] [address] Oct, Onychomycosis B35.1 and Othe r diabetic neurological complication associated with type 2 diabetes mellitus E11.49 [place] [address] [place] [address] Sep, Type 2 diabetes mellitus wit h complication E11.8 and Colon cancer screening Z12.11 [place] [address] [address] Sep, Type 2 diabetes mellitus wit h complication E11.8 ; Colon cancer screening Z12.11 and Neuropathy G62.9 [place] [address] [address] August, Diabetes E11.9 [facility] [address] [place] [id number] [address] [place] [address] [id number] Jul, Dental examination Z01.20 [place] [address] [place] [id number] [address] [place] [address] May, Mild intellectual disability F70 [place] [address] [address] May, Mild intellectual disability F70 ; High risk medication use Z79.899 ; Intermittent explosive disorder in adult F63.81 and Bipolar disorder, unspecified F31.9 [place] [address] [place] [id number] [address] [place] [address] May, [place] [address] [place] [id number] [address] [place] [address] May, [place] [address] [place] [id number] [address] [place] [address] Apr, Type 2 diabetes mellitus wit h complication E11.8 ; Mild intellectual disability F70 ; Gastroesophageal reflux disease without esophagitis K21.9 ; Reactive airway disease, mild intermittent, uncomplicated J45.20 and Tobacco abuse Z72.0 [place] [id number] [address] [place] [address] Apr, High risk medication use Z79 .899 ; Mild intellectual disability F70 ; Intermittent explosive disorder in adult F63.81 and Bipolar disorder, unspecified F31.9 [facility] [address] [id number] [address] [place] [address] [id number] Mar, Dental examination Z01.20 [facility] [address] [id number] [address] [place] [address] [id number] Mar, Encounter for dental exam an d cleaning w/o abnormal findings Z01.20 [facility] [address] [id number] [address] [place] [id number] 12 Jan, 2017 [facility] [address] [id number] [address] [place] [address] Jan, [facility] [address] [id number] [address] [place] [phone] 10 Jan, 2017 Mild intellectual disability F70 ; Bipolar disorder, unspecified F31.9 and Intermittent explosive disorder in adult F63.81 [facility] [address] [id number] [address] [place] [address] 02 Jan, 2017 Diabetes E11.9 [facility] [address] [id number] [address] [place] [address] [id number] 13 Dec, 2016 Encounter for dental examina tion and cleaning without abnormal findings Z01.20 [facility] [address] [id number] [address] [place] [address] 12 Dec, 2016 Bipolar disorder, unspecifie d F31.9 ; Intermittent explosive disorder in adult F63.81 and Mild intellectual disability F70 [facility] [address] [id number] [address] [place] [phone] Nov, Diabetes E11.9 [facility] [address] [id number] [address] [place] [phone] Nov, [facility] [address] [id number] [address] [place] [address] Nov, Diabetes E11.9 and Colon can cer screening Z12.11 [place] [id number] [facility] [id number] [id number] 21 Sep, 2016 Dental examination Z01.20 [facility] [address] [id number] [address] [place] [address] [id number] 21 Sep, 2016 Encounter for dental examina tion and cleaning without abnormal findings Z01.20 [facility] [address] [id number] [address] [place] [id number] 13 Sep, 2016 Bipolar disorder, unspecifie d F31.9 [facility] [address] [id number] [address] [place] [address] 12 Sep, 2016 Bipolar disorder, unspecifie d F31.9 [facility] [address] [facility] [id number] [address] [place] [phone] Jul, [facility] [address] [facility] [id number] [address] [place] [address] Jul, Type 2 diabetes mellitus wit h complication E11.[address] [id number] [id number] 15 Jun, 2016 Dental examination Z01.20 [facility] [address] [id number] [address] [place] [address] [id number] 15 Jun, 2016 Encounter for dental examina tion and cleaning without abnormal findings Z01.20 [facility] [address] [facility] [id number] [address] [place] [phone] 18 Apr, 2016 Sports physical Z02.5 [facility] [address] [id number] [address] [place] [phone] 14 Mar, 2016 Bipolar disorder, in partial remission, most recent episode manic F31.73 and Intermittent explosive disorder in adult F63.81 [facility] [address] [facility] [id number] [address] [place] [phone] 08 Mar, 2016 [facility] [address] [facility] [id number] [address] [place] [phone] 06 Dec, 2016 Diabetes E11.9 [facility] [address] [id number] [address] [place] [address] [id number] Feb, Encounter for dental examina tion and cleaning without abnormal findings Z01.20 [facility] [address] [id number] [address] [place] [phone] 22 Dec, 2015 Nocturnal hypoxemia G47.34 a nd Encounter for immunization Z23 [facility] [address] [facility] [id number] [address] [place] [phone] 15 Dec, 2015 [facility] [address] [id number] [address] [place] [phone] Dec, [facility] [address] [facility] [id number] [address] [place] [address] Dec, Bipolar disorder, unspecifie d F31.9 [facility] [address] [id number] [address] [place] [address] [id number] Oct, Encounter for dental examina tion and cleaning without abnormal findings Z01.20 [facility] [place] [id number] [place] [address] [id number] Oct, Dental examination Z01.20 [facility] [address] [facility] [id number] [address] [place] [address] Oct, Diabetes E11.9 [facility] [address] [facility] [id number] [address] [place] [phone] Oct, Diabetes E11.9 ; Reactive ai rway disease, mild intermittent, uncomplicated J45.20 and Tobacco abuse Z72.0 [facility] [address] [facility] [id number] [address] [place] [address] Sep, Bipolar disorder, unspecifie d F31.9 and Depression F32.9 [place] [address] [facility] [id number] [address] [place] [id number] Sep, [facility] [address] [facility] [id number] [address] [place] [phone] August, Tinea pedis of both feet B35 .3 and DM w/o complication type II, uncontrolled E11.65 [place] [id number] [address] Jul, [place] [address] [address] Jul, [place] [address] [address] Jul, Obstructive sleep apnea G47. 33 [place] [address] [address] Jun, Diabetes E11.9 [place] [address] [address] Jun, [place] [address] [address] Jun, [place] [address] [address] Jun, Bipolar disorder, unspecifie d F31.9 and Mental retardation F79 [place] [address] [address] Apr, [place] [address] [address] Feb, Diabetes E11.9 ; Encounter f or immunization Z23 ; Cough R05 and Nicotine abuse Z72.0 [place] [address] [address] Jan, Bipolar disorder, unspecifie d F31.9 and Diabetes mellitus without mention of complication, type II or unspecified type, uncontrolled 250.02 [place] [address] [address] Jan, [place] [address] [address] Dec, Reactive airway disease 493. 90 and Enuresis 788.30 [place] [address] [place] [id number] [address] [place] [address] Dec, [facility] [address] [facility] [id number] [address] [place] [address] Nov, [facility] [address] [facility] [id number] [address] [place] [address] Nov, [facility] [address] [facility] [id number] [place] [address] Nov, Annual physical exam V70.0 ; Urinary incontinence 788.30 ; Diabetes 250.00 and Hypertension 401.9 [facility] [address] [id number] [address] [place] [address] Oct, Diabetes mellitus without me ntion of complication, type II or unspecified type, uncontrolled 250.02 [facility] [address] [place] [id number] [address] [place] [address] Oct, Diabetes mellitus without me ntion of complication, type II or unspecified type, uncontrolled 250.02 [facility] [address] [facility] [id number] [address] [place] [address] Oct, Diabetes mellitus without me ntion of complication, type II or unspecified type, uncontrolled 250.02 [facility] [address] [place] [id number] [address] [place] [address] Oct, [facility] [address] [facility] [id number] [address] [place] [address] Oct, [facility] [address] [place] [id number] [address] [place] [address] Oct, Bipolar disorder, unspecifie d 296.80 [facility] [address] [id number] [place] [address] [id number] Sep, Dental examination V72.2 [facility] [address] [facility] [id number] [address] [place] [phone] August, [facility] [address] [id number] [place] [address] [id number] August, Dental examination V72.2 [facility] [address] [id number] [address] [place] [address], [place] [address] August, [facility] [address] [id number] [address] [place] [address] 14 Jul, 2014 [facility] [address] [id number] [address] [place] [address] Jul, [facility] [address] [id number] [address] [place] [address] Jun, [facility] [address] [id number] [address] [place] [address], [place] [address] Jun, [facility] [address] [id number] [address] [place] [phone] Jun, [facility] [address] [id number] [address] [place] [phone] Jun, [facility] [address] [id number] [address] [place] [phone] May, [facility] [address] [id number] [address] [place] [id number] May, [facility] [address] [id number] [address] [place] [address] 16 May, 2014 [facility] [address] [id number] [address] [place] [id number] 16 May, 2014 [facility] [address] [id number] [address] [place] [phone] May, 2014 [facility] [address] [id number] [address] [place] [phone] May, 2014 [facility] [address] [id number] [address] [place] [id number] 16 May, 2014 [facility] [address] [id number] [address] [place] [phone] May, [facility] [address] [id number] [address] [place] [address], [place] [address] May, 2014 [facility] [address] [id number] [address] [place] [address], [place] [address] May, 2014 [facility] [address] [id number] [address] [place] [address], [place] [address] May, 2014 [facility] [address] [id number] [address] [place] [address], [place] [address] May, 2014 [facility] [address] [id number] [address] [place] [address], [place] [address] May, 2014 [facility] [address] [id number] [address] [place] [address], [place] [address] May, 2014 [facility] [address] [id number] [address] [place] [address], [place] [address] May, [facility] [address] [id number] [address] [place] [address], [place] [address] Apr, [facility] [address] [id number] [address] [place] [address], [place] [address] Apr, [facility] [address] [id number] [address] [place] [address], [place] [address] Apr, [facility] [address] [id number] [address] [place] [address], [place] [address] Apr, [facility] [address] [id number] [address] [place] [address], [place] [address] Apr, [facility] [address] [id number] [address] [place] [address], [place] [address] Apr, [facility] [address] [id number] [address] [place] [address], [place] [address] Apr, [facility] [address] [id number] [address] [place] [address], [place] [address] Apr, [facility] [address] [id number] [address] [place] [address], [place] [address] Apr, [facility] [address] [id number] [address] [place] [address], [place] [address] Apr, [facility] [address] [id number] [address] [place] [address], [place] [address] Apr, [facility] [address] [id number] [address] [place] [address], [place] [address] Apr, [facility] [address] [id number] [address] [place] [address], [place] [address] Mar, [facility] [address] [id number] [address] [place] [address], [place] [address] Mar, [facility] [address] [id number] [address] [place] [address], [place] [address] Mar, [facility] [address] [id number] [address] [place] [address], [place] [address] Mar, [facility] [address] [id number] [address] [place] [address], [place] [address] Mar, [facility] [address] [id number] [address] [place] [address], [place] [address] Mar, [facility] [address] [id number] [address] [place] [address], [place] [address] Feb, [facility] [address] [id number] [address] [place] [address], [place] [address] Feb, [facility] [address] [id number] [address] [place] [address], [place] [address] Feb, [facility] [address] [id number] [address] [place] [address], [place] [id number] Feb, [facility] [address] [id number] [address] [place] [address], [place] [id number] 14 Jan, 2014 [facility] [address] [id number] [address] [place] [address], [place] [id number] 14 Jan, 2014 [facility] [address] [id number] [address] [place] [address], [place] [id number] Jan, [facility] [address] [id number] [address] [place] [address], [place] [id number] Jan, [facility] [address] [id number] [address] [place] [address], [place] [id number] Dec, [facility] [address] [id number] [address] [place] [address], [place] [id number] Dec, [facility] [address] [id number] [address] [place] [address], [place] [id number] Dec, [facility] [address] [id number] [address] [place] [address], [place] [id number] Dec, [facility] [address] [id number] [address] [place] [address], [place] [id number] Nov, [facility] [address] [id number] [address] [place] [address], [place] [id number] Nov, [facility] [address] [id number] [address] [place] [address], [place] [id number] Nov, [facility] [address] [id number] [address] [place] [address], [place] [id number] Nov, [facility] [address] [id number] [address] [place] [address], [place] [id number] Nov, [facility] [address] [id number] [address] [place] [address], [place] [id number] Nov, [facility] [address] [id number] [address] [place] [address], [place] [id number] Nov, [facility] [address] [id number] [address] [place] [address], [place] [address] Oct, [facility] [address] [id number] [address] [place] [address], [place] [address] Oct, [facility] [address] [id number] [address] [place] [address], [place] [id number] Oct, [facility] [address] [id number] [facility] [address] Oct, [facility] [address] [id number] [address] [place] [address], [place] [id number] Oct, [facility] [address] [id number] [address] [place] [address], [place] [address] Oct, [facility] [address] [id number] [address] [place] [address], [place] [id number] Oct, [facility] [address] [id number] [address] [place] [address], [place] [id number] Sep, [facility] [address] [id number] [address] [place] [address], [place] [id number] Sep, [facility] [address] [id number] [address] [place] [address], [place] [address] Sep, [facility] [address] [id number] [address] [place] [address], [place] [address] Sep, [facility] [address] [id number] [address] [place] [address], [place] [id number] Sep, [facility] [address] [id number] [address] [place] [address], [place] [id number] Jul, [facility] [address] [id number] [address] [place] [address], [place] [address] Jul, [facility] [address] [id number] [address] [place] [address], [place] [id number] Jul, [facility] [address] [id number] [address] [place] [address], [place] [id number] Jul, [facility] [address] [id number] [address] [place] [address], [place] [address] Jul, [facility] [address] [id number] [address] [place] [address], [place] [id number] Jul, [facility] [address] [id number] [facility] [address] Jul, [facility] [address] [id number] [facility] [address] Jul, [facility] [address] [id number] [facility] [address] Jul, [facility] [address] [id number] [address] [place] [address], [place] [address] Jul, [facility] [address] [id number] [address] [place] [address], [place] [address] Jul, [facility] [address] [id number] [address] [place] [address], [place] [id number] Jul, [facility] [address] [id number] [address] [place] [address], [place] [id number] Jun, [facility] [address] [id number] [address] [place] [address], [place] [id number] Jun, [facility] [address] [id number] [address] [place] [address], [place] [address] Jun, [facility] [address] [id number] [address] [place] [address], [place] [id number] Jun, [facility] [address] [id number] [address] [place] [address], [place] [address] Jun, [facility] [address] [id number] [address] [place] [address], [place] [address] Jun, [facility] [address] [id number] [address] [place] [address], [place] [id number] Jun, [facility] [address] [id number] [address] [place] [address], [place] [address] Jun, [facility] [address] [id number] [address] [place] [address], [place] [address] May, [facility] [address] [id number] [address] [place] [address], [place] [address] May, [facility] [address] [id number] [address] [place] [address], [place] [address] May, [facility] [address] [id number] [address] [place] [address], [place] [address] May, [facility] [address] [id number] [address] [place] [address], [place] [address] May, [facility] [address] [id number] [address] [place] [address], [place] [id number] May, [facility] [address] [id number] [address] [place] [address], [place] [address] May, [facility] [address] [id number] [address] [place] [address], [place] [address] May, [facility] [address] [id number] [address] [place] [address], [place] [address] Apr, [facility] [address] [id number] [address] [place] [address], [place] [address] Apr, [facility] [address] [id number] [address] [place] [address], [place] [address] Apr, [facility] [address] [id number] [address] [place] [address], [place] [address] Apr, [facility] [address] [id number] [address] [place] [address], [place] [address] Mar, [facility] [address] [id number] [address] [place] [address], [place] [address] Mar, [facility] [address] [id number] [address] [place] [address], [place] [address] Mar, [facility] [address] [id number] [address] [place] [address], [place] [address] Feb, [facility] [address] [id number] [address] [place] [address], [place] [id number] Feb, [facility] [address] [id number] [address] [place] [address], [place] [id number] Feb, [facility] [address] [id number] [address] [place] [address], [place] [address] Feb, [facility] [address] [id number] [address] [place] [address], [place] [id number] Feb, [facility] [address] [id number] [address] [place] [address], [place] [id number] Feb, [facility] [address] [id number] [address] [place] [address], [place] [address] Jan, [facility] [address] [id number] [address] [place] [address], [place] [address] Jan, [facility] [address] [id number] [address] [place] [address], [place] [address] Jan, [facility] [address] [id number] [address] [place] [address], [place] [address] Jan, [facility] [address] [id number] [address] [place] [address], [place] [id number] Jan, [facility] [address] [id number] [address] [place] [address], [place] [id number] Jan, [facility] [address] [id number] [address] [place] [address], [place] [address] Jan, [facility] [address] [id number] [address] [place] [address], [place] [id number] 25 Dec, 2012 [facility] [address] [id number] [address] [place] [address], [place] [address] 16 Dec, 2012 [facility] [address] [id number] [address] [place] [address], [place] [id number] 10 Dec, 2012 [facility] [address] [id number] [address] [place] [address], [place] [id number] 05 Dec, 2012 [facility] [address] [id number] [address] [place] [address], [place] [address] Nov, [facility] [address] [id number] [address] [place] [address], [place] [id number] Nov, [facility] [address] [id number] [address] [place] [address], [place] [id number] Nov, [facility] [address] [id number] [address] [place] [address], [place] [id number] Nov, [facility] [address] [id number] [address] [place] [address], [place] [id number] Nov, [facility] [address] [id number] [address] [place] [address], [place] [address] Nov, [facility] [address] [id number] [address] [place] [address], [place] [address] Nov, [facility] [address] [id number] [address] [place] [address], [place] [id number] Oct, [facility] [address] [id number] [address] [place] [address], [place] [id number] Oct, [facility] [address] [id number] [address] [place] [address], [place] [id number] Oct, [facility] [address] [id number] [address] [place] [address], [place] [address] Oct, [facility] [address] [id number] [address] [place] [address], [place] [id number] Oct, [facility] [address] [id number] [address] [place] [address], [place] [id number] Oct, [facility] [address] [id number] [address] [place] [address], [place] [id number] Oct, [facility] [address] [id number] [address] [place] [address], [place] [id number] Oct, [facility] [address] [id number] [address] [place] [address], [place] [address] Sep, [facility] [id number] [place] [id number] 30 Aug, 2012 [facility] [address] [id number] [address] [place] [address], [place] [id number] August, [facility] [address] [id number] [address] [place] [address], [place] [address] Jul, [facility] [address] [id number] [address] [place] [address], [place] [address] Jul, [facility] [address] [id number] [address] [place] [address], [place] [address] Jul, [facility] [address] [id number] [address] [place] [address], [place] [address] Jul, [facility] [address] [id number] [address] [place] [address], [place] [id number] Jul, [facility] [address] [id number] [address] [place] [address], [place] [id number] Jul, [facility] [address] [id number] [address] [place] [address], [place] [address] Jul, [facility] [address] [id number] [address] [place] [address], [place] [id number] Jun, [facility] [address] [id number] [address] [place] [address], [place] [address] Jun, [facility] [address] [id number] [address] [place] [address], [place] [id number] Jun, [facility] [address] [id number] [address] [place] [id number] Jun, [facility] [address] [id number] [address] [place] [id number] Jun, [facility] [address] [id number] [address] [place] [address], [place] [id number] May, [facility] [address] [id number] [address] [place] [address] May, [facility] [address] [id number] [address] [place] [address], [place] [id number] 04 May, 2012 [facility] [address] [id number] [address] [place] [address], [place] [address] 15 Apr, 2012 [facility] [address] [id number] [address] [place] [address], [place] [id number] 14 Apr, 2012 [facility] [address] [id number] [address] [place] [address], [place] [id number] Apr, [facility] [address] [id number] [address] [place] [address], [place] [id number] Mar, [facility] [address] [id number] [address] [place] [address], [place] [id number] Mar, [facility] [address] [id number] [address] [place] [address], [place] [id number] Mar, [facility] [address] [id number] [address] [place] [address], [place] [id number] Mar, [facility] [address] [id number] [address] [place] [address], [place] [id number] Mar, [facility] [address] [id number] [address] [place] [address], [place] [id number] Mar, [facility] [address] [id number] [address] [place] [address], [place] [id number] Feb, [facility] [address] [id number] [address] [place] [address], [place] [address] Feb, [facility] [address] [id number] [address] [place] [address], [place] [id number] Jan, [facility] [address] [id number] [address] [place] [address], [place] [address] Jan, [facility] [address] [id number] [address] [place] [address], [place] [id number] Dec, [facility] [address] [id number] [address] [place] [address], [place] [id number] Nov, [facility] [address] [id number] [address] [place] [address], [place] [id number] Nov, [facility] [address] [id number] [address] [place] [address], [place] [address] Nov, [facility] [address] [id number] [address] [place] [address], [place] [id number] Nov, [facility] [address] [id number] [address] [place] [address], [place] [id number] Oct, [facility] [address] [id number] [address] [place] [address], [place] [id number] Oct, [facility] [address] [id number] [address] [place] [address], [place] [id number] Oct, [facility] [address] [id number] [address] [place] [address], [place] [id number] Sep, [facility] [address] [id number] [address] [place] [address], [place] [id number] Sep, [facility] [address] [id number] [address] [place] [address], [place] [id number] Sep, [facility] [address] [id number] [address] [place] [address], [place] [address] August, [facility] [address] [id number] [address] [place] [address], [place] [id number] August, [facility] [address] [id number] [address] [place] [address], [place] [id number] Jul, [facility] [address] [id number] [address] [place] [address], [place] [id number] 24 Jul, 2011 [facility] [address] [id number] [address] [place] [address], [place] [id number] 17 Jul, 2011 [facility] [address] [id number] [address] [place] [address], [place] [id number] Jul, [facility] [address] [id number] [address] [place] [address], [place] [id number] 14 Jun, 2011 [facility] [address] [id number] [address] [place] [address], [place] [id number] May, [facility] [address] [id number] [address] [place] [address], [place] [address] Apr, [facility] [address] [id number] [address] [place] [address], [place] [id number] Apr, [facility] [address] [id number] [address] [place] [address], [place] [address] Apr, [facility] [address] [id number] [address] [place] [address], [place] [id number] Apr, [facility] [address] [id number] [address] [place] [address], [place] [id number] Apr, [facility] [address] [id number] [address] [place] [address], [place] [address] Apr, [facility] [address] [id number] [address] [place] [address], [place] [id number] Mar, [facility] [address] [id number] [address] [place] [address], [place] [id number] Mar, [facility] [address] [id number] [address] [place] [address], [place] [address] Feb, [facility] [address] [id number] [address] [place] [address], [place] [id number] Feb, [facility] [address] [id number] [address] [place] [address], [place] [address] Feb, [facility] [address] [id number] [address] [place] [address], [place] [id number] Feb, [facility] [address] [id number] [address] [place] [address], [place] [id number] Jan, [facility] [address] [id number] [address] [place] [address], [place] [id number] Jan, [facility] [address] [id number] [address] [place] [address], [place] [id number] 18 Jan, 2011 [facility] [address] [id number] [address] [place] [address], [place] [id number] 18 Jan, 2011 [facility] [address] [id number] [address] [place] [address], [place] [id number] 17 Nov, 2010 [facility] [address] [id number] [address] [place] [address], [place] [id number] Mar, [facility] [address] [id number] [address] [place] [address], [place] [id number] Mar, [facility] [address] [id number] [address] [place] [address], [place] [id number] 30 Feb, 2010 [facility] [address] [id number] [address] [place] [address], [place] [id number] 15 Feb, 2010 [facility] [address] [id number] [address] [place] [address], [place] [id number] Jan, [facility] [address] [id number] [address] [place] [address], [place] [id number] Jan, [facility] [address] [id number] [address] [place] [id number] Sep, [facility] [address] [id number] [address] [place] [address], [place] [id number] May, [facility] [address] [id number] [address] [place] [id number] Apr, [facility] [address] [id number] [address] [place] [address], [place] [id number] Mar, [facility] [address] [id number] [address] [place] [id number] 15 Feb, 2009 [facility] [address] [id number] [address] [place] [address], [place] [id number] Feb, [facility] [address] [id number] [address] [place] [id number] 10 Feb, 2009 [facility] [address] [facility] [id number] [address] [place] [id number] 22 Jan, 2009 [facility] [address] [facility] [id number] [address] [place] [id number] 13 Jan, 2009 [facility] [address] [facility] [id number] [address] [place] [id number] Jan, [facility] [address] [facility] [id number] [address] [place] [id number] 11 Jan, 2009 [facility] [address] [facility] [id number] [address] [place] [id number] August, IMMUNIZATIONS No Known Immunizations SOCIAL HISTORY [...] age 6 Hospitalization History surgery Hospitalization History [facility], [place] tie treatment few times for BH
--- OUTSIDE RECORDS SUMMARY | 2019-09-29 10:53 | XMS REPORT ---
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 Active 71749542 Problem Open-angle glaucoma of both eyes, unspecified glaucoma stage, unspecified open-angle glaucoma type H40.10X0 Acti ve 59829351 Problem Adjustment disorder, unspecified type F43.20 Active 24136291 Problem Obstructive sleep apnea G47.33 Active 47700719 Problem Hypertensive retinopathy of both eyes H35.033 Active 5829145 Problem Type 2 diabetes mellitus with complication E11.8 Active 70676223 Problem Essential hypertension I10 Active 11883289 Problem Diabetes E11.9 Active 88670338 Problem Bipolar disorder, in partial remission, most rec ent episode manic F31.73 Active 53791056 Problem Intermittent explosive disorder in adult F63.81 Active 58759906 Problem Other diabetic neurological complication associated with type 2 diabetes mellitus E11.49 Active 622915964 Problem Depression F32.9 Active 45990969 Problem Neuropathy G62.9 Active 355675802 Problem Intermittent explosive disorder F63.81 Active 32097937 Problem Bipolar disorder, unspecified F31.9 Active 56005239 Problem Mild intellectual disability F70 A ctive 98554332 Problem Reactive airway disease, mild intermittent, uncomplicated J45.20 Active 555202157 Problem Gastroesophageal reflux disease without esophagitis K21.9 Active 502183851 ALLERGIES No Information ENCOUNTERS Encounter Location Date Diagnosis [facility] [address] [facility] [id number] [address] [place] [address] 24 Dec, 2018 [facility] [address] [facility] [id number] [address] [place] [address] Oct, OUTREACH [facility] [address] [id number] [place] [phone] Oct, [facility] [address] [facility] [id number] [address] [place] [address] August, Intermittent explosive disor salvatore in adult F63.81 ; Bipolar disorder, unspecified F31.9 and Mild intellectual disability F70 [facility] [address] [facility] [id number] [address] [place] [id number] August, Dental caries K02.9 [facility] [address] [facility] [id number] [address] [place] [phone] Jul, Onychomycosis B35.1 ; Other diabetic neurological complication associated with type 2 diabetes mellitus E11.49 and Tinea pedis of both feet B35.3 [facility] [address] [facility] [id number] [address] [place] [address] [id number] Jul, Caries K02.9 [facility] [address] [id number] [address] [place] [phone] Jul, Type 2 diabetes mellitus wit h complication E11.8 ; Tobacco abuse Z72.0 and Bipolar disorder, unspecified F31.9 [facility] [address] [id number] [address] [place] [phone] Jun, [facility] [address] [id number] [address] [place] [address] [id number] Jun, Dental examination Z01.20 an d Oral health maintenance status requiring routine preventive dental care K08.9 [facility] [address] [facility] [id number] [address] [place] [phone] May, Bilateral impacted cerumen H 61.23 [facility] [address] [facility] [id number] [address] [place] [address] Apr, Bipolar disorder, unspecifie d F31.9 ; Intermittent explosive disorder in adult F63.81 ; Type 2 diabetes mellitus with complication E11.8 ; Tobacco abuse Z72.0 and Colon cancer screening Z12.11 [facility] [address] [facility] [id number] [address] [place] [phone] Apr, Onychomycosis B35.1 and Othe r diabetic neurological complication associated with type 2 diabetes mellitus E11.49 [facility] [address] [facility] [id number] [address] [place] [address] Apr, Intermittent explosive disor salvatore in adult F63.81 ; Bipolar disorder, unspecified F31.9 and Mild intellectual disability F70 [facility] [address] [facility] [id number] [address] [place] [phone] 03 Mar, 2018 Diabetes E11.9 [facility] [address] [facility] [id number] [address] [place] [phone] Jan, Encounter for immunization Z 23 [facility] [address] [facility] [id number] [address] [place] [phone] Jan, Tinea pedis of both feet B35 .3 ; Other diabetic neurological complication associated with type 2 diabetes mellitus E11.49 and Onychomycosis B35.1 [facility] [address] [facility] [id number] [address] [place] [phone] Nov, Type 2 diabetes mellitus wit h complication E11.8 [facility] [address] [facility] [id number] [address] [place] [phone] Nov, [facility] [address] [facility] [id number] [address] [place] [phone] Oct, Intermittent explosive disor salvatore in adult F63.81 ; Bipolar disorder, unspecified F31.9 and Mild intellectual disability F70 [facility] [address] [facility] [id number] [address] [place] [phone] Oct, [facility] [address] [id number] [address] [place] [address] [id number] 11 Oct, 2017 Dental examination Z01.20 [facility] [address] [facility] [id number] [address] [place] [phone] Oct, Onychomycosis B35.1 and Othe r diabetic neurological complication associated with type 2 diabetes mellitus E11.49 [facility] [address] [facility] [id number] [address] [place] [phone] Sep, Type 2 diabetes mellitus wit h complication E11.8 and Colon cancer screening Z12.11 [facility] [address] [facility] [id number] [address] [place] [id number] 18 Sep, 2017 Type 2 diabetes mellitus wit h complication E11.8 ; Colon cancer screening Z12.11 and Neuropathy G62.9 [facility] [address] [facility] [id number] [address] [place] [address] August, Diabetes E11.9 [facility] [address] [facility] [id number] [address] [place] [address] [id number] Jul, Dental examination Z01.20 [facility] [address] [facility] [id number] [address] [place] [phone] 27 May, 2017 Mild intellectual disability F70 [place] [address] [facility] [id number] [address] [place] [phone] May, Mild intellectual disability F70 ; High risk medication use Z79.899 ; Intermittent explosive disorder in adult F63.81 and Bipolar disorder, unspecified F31.9 [facility] [address] [facility] [id number] [address] [place] [address] May, [facility] [address] [facility] [id number] [address] [place] [address] May, [facility] [address] [facility] [id number] [address] [place] [phone] Apr, Type 2 diabetes mellitus wit h complication E11.8 ; Mild intellectual disability F70 ; Gastroesophageal reflux disease without esophagitis K21.9 ; Reactive airway disease, mild intermittent, uncomplicated J45.20 and Tobacco abuse Z72.0 [place] [address] [facility] [id number] [address] [place] [phone] Apr, High risk medication use Z79 .899 ; Mild intellectual disability F70 ; Intermittent explosive disorder in adult F63.81 and Bipolar disorder, unspecified F31.9 [facility] [address] [id number] [address] [place] [address] [id number] Mar, Dental examination Z01.20 [facility] [address] [id number] [address] [place] [address] [id number] 27 Mar, 2017 Encounter for dental exam an d cleaning w/o abnormal findings Z01.20 [facility] [address] [id number] [address] [place] [phone] 12 Jan, 2017 [facility] [address] [id number] [address] [place] [phone] 11 Jan, 2017 [facility] [address] [id number] [address] [place] [id number] 10 Jan, 2017 Mild intellectual disability F70 ; Bipolar disorder, unspecified F31.9 and Intermittent explosive disorder in adult F63.81 [facility] [address] [id number] [address] [place] [id number] 02 Jan, 2017 Diabetes E11.9 [facility] [address] [id number] [address] [place] [address] [id number] 13 Dec, 2016 Encounter for dental examina tion and cleaning without abnormal findings Z01.20 [facility] [address] [id number] [address] [place] [phone] 12 Dec, 2016 Bipolar disorder, unspecifie d F31.9 ; Intermittent explosive disorder in adult F63.81 and Mild intellectual disability F70 [facility] [address] [id number] [address] [place] [id number] Nov, Diabetes E11.9 [facility] [address] [id number] [address] [place] [phone] Nov, [facility] [address] [id number] [address] [place] [phone] Nov, Diabetes E11.9 and Colon can cer screening Z12.[address] [facility] [address] [id number] [id number] 21 Sep, 2016 Dental examination Z01.20 [facility] [address] [id number] [address] [place] [address] [id number] 21 Sep, 2016 Encounter for dental examina tion and cleaning without abnormal findings Z01.20 [facility] [address] [id number] [address] [place] [id number] 13 Sep, 2016 Bipolar disorder, unspecifie d F31.9 [facility] [address] [id number] [address] [place] [phone] 12 Sep, 2016 Bipolar disorder, unspecifie d F31.9 [facility] [address] [facility] [id number] [address] [place] [phone] 26 Jul, 2016 [facility] [address] [facility] [id number] [address] [place] [phone] Jul, Type 2 diabetes mellitus wit h complication E11.[address] [id number] [id number] 15 Jun, 2016 Dental examination Z01.20 [facility] [address] [id number] [address] [place] [address] [id number] 15 Jun, 2016 Encounter for dental examina tion and cleaning without abnormal findings Z01.20 [facility] [address] [facility] [id number] [address] [place] [phone] Apr, Sports physical Z02.5 [facility] [address] [facility] [id number] [address] [place] [phone] 14 Mar, 2016 Bipolar disorder, in partial remission, most recent episode manic F31.73 and Intermittent explosive disorder in adult F63.81 [facility] [address] [id number] [address] [place] [phone] 08 Mar, 2016 [facility] [address] [id number] [address] [place] [id number] 06 Mar, 2016 Diabetes E11.9 [facility] [address] [facility] [id number] [address] [place] [address] [id number] 03 Feb, 2016 Encounter for dental examina tion and cleaning without abnormal findings Z01.20 [facility] [address] [facility] [id number] [place] [phone] 22 Dec, 2015 Nocturnal hypoxemia G47.34 a nd Encounter for immunization Z23 [facility] [address] [facility] [id number] [place] [id number] 15 Dec, 2015 [facility] [address] [id number] 12 Dec, 2015 [facility] [address] [facility] [id number] [phone] Dec, Bipolar disorder, unspecifie d F31.9 [facility] [address] [facility] [id number] [address] [place] [address] [id number] Oct, Encounter for dental examina tion and cleaning without abnormal findings Z01.[address] [facility] [id number] [place] [address] [id number] Oct, Dental examination Z01.20 [place] [address] [address] Oct, Diabetes E11.9 [place] [address] [address] Oct, Diabetes E11.9 ; Reactive ai rway disease, mild intermittent, uncomplicated J45.20 and Tobacco abuse Z72.0 [facility] [address] [id number] Sep, Bipolar disorder, unspecifie d F31.9 and Depression F32.9 [place] [address] [address] Sep, [place] [address] [place] [id number] [place] [phone] August, Tinea pedis of both feet B35 .3 and DM w/o complication type II, uncontrolled E11.65 [place] [address] [address] Jul, [place] [address] [address] Jul, [place] [address] [phone] Jul, Obstructive sleep apnea G47. 33 [place] [address] [address] Jun, Diabetes E11.9 [place] [address] [address] Jun, [place] [address] [address] Jun, [place] [address] [phone] Jun, Bipolar disorder, unspecifie d F31.9 and Mental retardation F79 [place] [address] [address] Apr, [place] [address] [phone] Feb, Diabetes E11.9 ; Encounter f or immunization Z23 ; Cough R05 and Nicotine abuse Z72.0 [place] [address] [address] Jan, Bipolar disorder, unspecifie d F31.9 and Diabetes mellitus without mention of complication, type II or unspecified type, uncontrolled 250.02 [place] [address] [address] Jan, [place] [address] [address] Dec, Reactive airway disease 493. 90 and Enuresis 788.30 [place] [address] [address] Dec, [facility] [address] [facility] [id number] [address] [place] [phone] Nov, [facility] [address] [facility] [id number] [address] [place] [phone] Nov, [facility] [address] [facility] [id number] [address] [place] [phone] Nov, Annual physical exam V70.0 ; Urinary incontinence 788.30 ; Diabetes 250.00 and Hypertension 401.9 [facility] [address] [id number] [address] [place] [phone] Oct, Diabetes mellitus without me ntion of complication, type II or unspecified type, uncontrolled 250.02 [facility] [address] [facility] [id number] [address] [place] [phone] Oct, Diabetes mellitus without me ntion of complication, type II or unspecified type, uncontrolled 250.02 [facility] [address] [facility] [id number] [address] [place] [phone] Oct, Diabetes mellitus without me ntion of complication, type II or unspecified type, uncontrolled 250.02 [facility] [address] [facility] [id number] [address] [place] [phone] Oct, [facility] [address] [facility] [id number] [address] [place] [phone] Oct, [facility] [address] [facility] [id number] [address] [place] [phone] Oct, Bipolar disorder, unspecifie d 296.80 [facility] [address] [id number] [address] [place] [address] [id number] Sep, Dental examination V72.2 [facility] [address] [facility] [id number] [address] [place] [phone] August, [facility] [address] [id number] [address] [place] [address] [id number] August, Dental examination V72.2 [facility] [address] [id number] [address] [place] [address], [place] [address] August, [facility] [address] [id number] [address] [place] [address], [place] [address] 14 Jul, 2014 [facility] [address] [id number] [address] [place] [address], [place] [address] 13 Jul, 2014 [facility] [address] [id number] [address] [place] [address], [place] [address] 17 Jun, 2014 [facility] [address] [id number] [address] [place] [address], [place] [address] 17 Jun, 2014 [facility] [address] [id number] [address] [place] [address], [place] [address] Jun, [facility] [address] [id number] [address] [place] [address], [place] [address] Jun, [facility] [address] [id number] [address] [place] [address], [place] [address] 23 May, 2014 [facility] [address] [id number] [address] [place] [address], [place] [address] 23 May, 2014 [facility] [address] [id number] [address] [place] [address], [place] [address] 16 May, 2014 [facility] [address] [id number] [address] [place] [address], [place] [address] 16 May, 2014 [facility] [address] [id number] [address] [place] [address], [place] [address] 16 May, 2014 [facility] [address] [id number] [address] [place] [address], [place] [address] May, 2014 [facility] [address] [id number] [address] [place] [address], [place] [address] 16 May, 2014 [facility] [address] [id number] [address] [place] [address], [place] [address] 16 May, 2014 [facility] [address] [id number] [address] [place] [address] [place] [address] 16 May, 2014 [facility] [address] [id number] [address] [place] [address], [place] [address] May, 2014 [facility] [address] [id number] [address] [place] [address], [place] [address] May, 2014 [facility] [address] [id number] [address] [place] [address], [place] [address] May, 2014 [facility] [address] [id number] [address] [place] [address], [place] [address] May, 2014 [facility] [address] [id number] [address] [place] [address], [place] [address] May, 2014 [facility] [address] [id number] [address] [place] [address], [place] [address] May, [facility] [address] [id number] [address] [place] [address], [place] [address] Apr, [facility] [address] [id number] [address] [place] [address], [place] [address] Apr, [facility] [address] [id number] [address] [place] [address], [place] [address] Apr, [facility] [address] [id number] [address] [place] [address], [place] [address] Apr, [facility] [address] [id number] [address] [place] [address], [place] [address] Apr, [facility] [address] [id number] [address] [place] [address], [place] [address] Apr, [facility] [address] [id number] [address] [place] [address], [place] [address] Apr, [facility] [address] [id number] [address] [place] [address], [place] [address] Apr, [facility] [address] [id number] [address] [place] [address], [place] [address] Apr, [facility] [address] [id number] [address] [place] [address], [place] [address] Apr, [facility] [address] [id number] [address] [place] [address], [place] [address] Apr, [facility] [address] [id number] [address] [place] [address], [place] [address] Apr, [facility] [address] [id number] [address] [place] [address], [place] [address] Mar, [facility] [address] [id number] [address] [place] [address], [place] [address] Mar, [facility] [address] [id number] [address] [place] [address], [place] [address] Mar, [facility] [address] [id number] [address] [place] [address], [place] [address] Mar, [facility] [address] [id number] [address] [place] [address], [place] [address] Mar, [facility] [address] [id number] [address] [place] [address], [place] [address] Mar, [facility] [address] [id number] [address] [place] [address], [place] [address] Feb, [facility] [address] [id number] [address] [place] [address], [place] [address] Feb, [facility] [address] [id number] [address] [place] [address], [place] [address] 13 Feb, 2014 [facility] [address] [id number] [address] [place] [address], [place] [address] Feb, [facility] [address] [id number] [address] [place] [address], [place] [address] 14 Jan, 2014 [facility] [address] [id number] [address] [place] [address], [place] [address] 14 Jan, 2014 [facility] [address] [id number] [address] [place] [address] 14 Jan, 2014 [facility] [address] [id number] [address] [place] [address], [place] [address] Jan, [facility] [address] [id number] [address] [place] [address], [place] [address] Dec, [facility] [address] [id number] [address] [place] [address], [place] [address] Dec, [facility] [address] [id number] [address] [place] [address], [place] [address] Dec, [facility] [address] [id number] [address] [place] [address], [place] [address] Dec, [facility] [address] [id number] [address] [place] [address], [place] [address] Nov, [facility] [address] [id number] [address] [place] [address], [place] [address] Nov, [facility] [address] [id number] [address] [place] [address], [place] [address] Nov, [facility] [address] [id number] [address] [place] [address], [place] [address] Nov, [facility] [address] [id number] [address] [place] [address], [place] [address] Nov, [facility] [address] [id number] [address] [place] [address], [place] [address] Nov, [facility] [address] [id number] [address] [place] [address], [place] [address] Nov, [facility] [address] [id number] [address] [place] [address], [place] [address] Oct, [facility] [address] [id number] [address] [place] [address], [place] [address] Oct, [facility] [address] [id number] [address] [place] [address], [place] [address] Oct, [facility] [address] [id number] [facility] [place] [address] Oct, [facility] [address] [id number] [facility] [address] Oct, [facility] [address] [id number] [facility] [address] Oct, [facility] [address] [id number] [address] [place] [address], [place] [address] Oct, [facility] [address] [id number] [address] [place] [address], [place] [address] Sep, [facility] [address] [id number] [address] [place] [address], [place] [address] Sep, [facility] [address] [id number] [address] [place] [address], [place] [address] Sep, [facility] [address] [id number] [address] [place] [address], [place] [address] Sep, [facility] [address] [id number] [address] [place] [address], [place] [address] Sep, [facility] [address] [id number] [address] [place] [address], [place] [address] Jul, [facility] [address] [id number] [address] [place] [address], [place] [address] Jul, [facility] [address] [id number] [address] [place] [address], [place] [address] Jul, [facility] [address] [id number] [address] [place] [address], [place] [address] Jul, [facility] [address] [id number] [address] [place] [address], [place] [address] Jul, [facility] [address] [id number] [address] [place] [address], [place] [address] Jul, [facility] [address] [id number] [address] [place] [address], [place] [address] Jul, [facility] [address] [id number] [facility] [address] Jul, [facility] [address] [id number] [address] [place] [address], [place] [address] Jul, [facility] [address] [id number] [address] [place] [address], [place] [address] Jul, [facility] [address] [id number] [address] [place] [address], [place] [address] Jul, [facility] [address] [id number] [address] [place] [address], [place] [address] Jul, [facility] [address] [id number] [address] [place] [address], [place] [address] Jun, [facility] [address] [id number] [address] [place] [address], [place] [address] Jun, [facility] [address] [id number] [address] [place] [address], [place] [address] Jun, [facility] [address] [id number] [address] [place] [address], [place] [address] Jun, [facility] [address] [id number] [address] [place] [address], [place] [address] Jun, [facility] [address] [id number] [address] [place] [address], [place] [address] Jun, [facility] [address] [id number] [address] [place] [address], [place] [address] Jun, [facility] [address] [id number] [address] [place] [address], [place] [address] Jun, [facility] [address] [id number] [address] [place] [address], [place] [address] May, [facility] [address] [id number] [address] [place] [address], [place] [address] May, [facility] [address] [id number] [address] [place] [address], [place] [address] May, [facility] [address] [id number] [address] [place] [address], [place] [address] May, [facility] [address] [id number] [address] [place] [address], [place] [address] May, [facility] [address] [id number] [address] [place] [address], [place] [address] May, [facility] [address] [id number] [address] [place] [address], [place] [address] May, [facility] [address] [id number] [address] [place] [address], [place] [address] May, [facility] [address] [id number] [address] [place] [address], [place] [address] Apr, [facility] [address] [id number] [address] [place] [address], [place] [address] Apr, [facility] [address] [id number] [address] [place] [address], [place] [address] Apr, [facility] [address] [id number] [address] [place] [address], [place] [address] Apr, [facility] [address] [id number] [address] [place] [address], [place] [address] Mar, [facility] [address] [id number] [address] [place] [address], [place] [address] Mar, [facility] [address] [id number] [address] [place] [address], [place] [address] Mar, [facility] [address] [id number] [address] [place] [address], [place] [address] Feb, [facility] [address] [id number] [address] [place] [address], [place] [address] Feb, [facility] [address] [id number] [address] [place] [address], [place] [address] Feb, [facility] [address] [id number] [address] [place] [address], [place] [address] Feb, [facility] [address] [id number] [address] [place] [address], [place] [address] Feb, [facility] [address] [id number] [address] [place] [address], [place] [address] Feb, [facility] [address] [id number] [address] [place] [address], [place] [address] Jan, [facility] [address] [id number] [address] [place] [address], [place] [address] Jan, [facility] [address] [id number] [address] [place] [address], [place] [address] Jan, [facility] [address] [id number] [address] [place] [address], [place] [address] Jan, [facility] [address] [id number] [address] [place] [address], [place] [address] Jan, [facility] [address] [id number] [address] [place] [address], [place] [address] Jan, [facility] [address] [id number] [address] [place] [address], [place] [address] Jan, [facility] [address] [id number] [address] [place] [address], [place] [address] 25 Dec, 2012 [facility] [address] [id number] [address] [place] [address] 16 Dec, 2012 [facility] [address] [id number] [address] [place] [address], [place] [address] 10 Dec, 2012 [facility] [address] [id number] [address] [place] [address], [place] [address] 05 Dec, 2012 [facility] [address] [id number] [address] [place] [address], [place] [address] Nov, [facility] [address] [id number] [address] [place] [address], [place] [address] Nov, [facility] [address] [id number] [address] [place] [address], [place] [address] Nov, [facility] [address] [id number] [address] [place] [address], [place] [address] Nov, [facility] [address] [id number] [address] [place] [address], [place] [address] Nov, [facility] [address] [id number] [address] [place] [address], [place] [address] Nov, [facility] [address] [id number] [address] [place] [address], [place] [address] Nov, [facility] [address] [id number] [address] [place] [address], [place] [address] Oct, [facility] [address] [id number] [address] [place] [address], [place] [address] Oct, [facility] [address] [id number] [address] [place] [address], [place] [address] Oct, [facility] [address] [id number] [address] [place] [address], [place] [address] Oct, [facility] [address] [id number] [address] [place] [address], [place] [address] Oct, [facility] [address] [id number] [address] [place] [address], [place] [address] Oct, [facility] [address] [id number] [address] [place] [address], [place] [address] Oct, [facility] [address] [id number] [address] [place] [address], [place] [address] Oct, [facility] [address] [id number] [address] [place] [address], [place] [address] Sep, Suleiman PEREZ [address] [id number] [place] [id number] August, [facility] [address] [id number] [address] [place] [address], [place] [address] August, [facility] [address] [id number] [address] [place] [address], [place] [address] Jul, [facility] [address] [id number] [address] [place] [address], [place] [address] Jul, [facility] [address] [id number] [address] [place] [address], [place] [address] Jul, [facility] [address] [id number] [address] [place] [address], [place] [address] Jul, [facility] [address] [id number] [address] [place] [address], [place] [address] Jul, [facility] [address] [id number] [address] [place] [address], [place] [address] Jul, [facility] [address] [id number] [address] [place] [address], [place] [address] 16 Jul, 2012 [facility] [address] [id number] [address] [place] [address], [place] [address] Jun, [facility] [address] [id number] [address] [place] [address], [place] [address] Jun, [facility] [address] [id number] [address] [place] [address], [place] [address] Jun, [facility] [address] [id number] [address] [place] [address], [place] [address] Jun, [facility] [address] [id number] [address] [place] [address], [place] [address] Jun, [facility] [address] [id number] [address] [place] [address], [place] [address] May, [facility] [address] [id number] [address] [place] [address], [place] [address] May, [facility] [address] [id number] [address] [place] [address] [place] [address] 04 May, 2012 [facility] [address] [id number] [address] [place] [address], [place] [address] 15 Apr, 2012 [facility] [address] [id number] [address] [place] [address], [place] [address] 14 Apr, 2012 [facility] [address] [id number] [address] [place] [address], [place] [address] Apr, [facility] [address] [id number] [address] [place] [address], [place] [address] 31 Mar, 2012 [facility] [address] [id number] [address] [place] [address], [place] [address] Mar, [facility] [address] [id number] [address] [place] [address], [place] [address] Mar, [facility] [address] [id number] [address] [place] [address], [place] [address] Mar, [facility] [address] [id number] [address] [place] [address], [place] [address] Mar, [facility] [address] [id number] [address] [place] [address], [place] [address] Mar, [facility] [address] [id number] [address] [place] [address], [place] [address] Feb, [facility] [address] [id number] [address] [place] [address], [place] [address] Feb, [facility] [address] [id number] [address] [place] [address], [place] [address] Jan, [facility] [address] [id number] [address] [place] [address], [place] [address] Jan, [facility] [address] [id number] [address] [place] [address], [place] [address] Dec, [facility] [address] [id number] [address] [place] [address], [place] [address] Nov, [facility] [address] [id number] [address] [place] [address], [place] [address] Nov, [facility] [address] [id number] [address] [place] [address], [place] [address] Nov, [facility] [address] [id number] [address] [place] [address], [place] [address] Nov, [facility] [address] [id number] [address] [place] [address], [place] [address] Oct, [facility] [address] [id number] [address] [place] [address], [place] [address] Oct, [facility] [address] [id number] [address] [place] [address], [place] [address] Oct, [facility] [address] [id number] [address] [place] [address], [place] [address] Sep, [facility] [address] [id number] [address] [place] [address], [place] [address] Sep, [facility] [address] [id number] [address] [place] [address], [place] [address] Sep, [facility] [address] [id number] [address] [place] [address], [place] [address] August, [facility] [address] [id number] [address] [place] [address], [place] [address] August, [facility] [address] [id number] [address] [place] [address], [place] [address] Jul, [facility] [address] [id number] [address] [place] [address], [place] [address] 24 Jul, 2011 [facility] [address] [id number] [address] [place] [address], [place] [address] Jul, [facility] [address] [id number] [address] [place] [address], [place] [address] Jul, [facility] [address] [id number] [address] [place] [address], [place] [address] Jun, [facility] [address] [id number] [address] [place] [address], [place] [address] May, [facility] [address] [id number] [address] [place] [address], [place] [address] Apr, [facility] [address] [id number] [address] [place] [address], [place] [address] Apr, [facility] [address] [id number] [address] [place] [address], [place] [address] Apr, [facility] [address] [id number] [address] [place] [address], [place] [address] Apr, [facility] [address] [id number] [address] [place] [address], [place] [address] Apr, [facility] [address] [id number] [address] [place] [address], [place] [address] Apr, [facility] [address] [id number] [address] [place] [address], [place] [address] Mar, [facility] [address] [id number] [address] [place] [address], [place] [address] Mar, [facility] [address] [id number] [address] [place] [address], [place] [address] Feb, [facility] [address] [id number] [address] [place] [address], [place] [address] Feb, [facility] [address] [id number] [address] [place] [address], [place] [address] Feb, [facility] [address] [id number] [address] [place] [address], [place] [address] Feb, [facility] [address] [id number] [address] [place] [address], [place] [address] Jan, [facility] [address] [id number] [address] [place] [address], [place] [address] Jan, [facility] [address] [id number] [address] [place] [address], [place] [address] 18 Jan, 2011 [facility] [address] [id number] [address] [place] [address], [place] [address] 18 Jan, 2011 [facility] [address] [id number] [address] [place] [address], [place] [address] 17 Nov, 2010 [facility] [address] [id number] [address] [place] [address], [place] [address] 03 Mar, 2010 [facility] [address] [id number] [address] [place] [address], [place] [address] 02 Mar, 2010 [facility] [address] [id number] [address] [place] [address], [place] [address] 30 Feb, 2010 [facility] [address] [id number] [address] [place] [address], [place] [address] 15 Feb, 2010 [facility] [address] [id number] [address] [place] [address], [place] [address] Jan, [facility] [address] [id number] [address] [place] [address], [place] [address] Jan, [facility] [address] [id number] [address] [place] [address], [place] [address] Sep, [facility] [address] [id number] [address] [place] [address], [place] [address] 16 May, 2009 [facility] [address] [id number] [address] [place] [address], [place] [address] Apr, [facility] [address] [id number] [address] [place] [address], [place] [address] Mar, [facility] [address] [id number] [address] [place] [address], [place] [address] 15 Feb, 2009 [facility] [address] [id number] [address] [place] [address], [place] [address] 10 Feb, 2009 [facility] [address] [id number] [address] [place] [address], [place] [id number] Feb, [facility] [address] [facility] [id number] [address] [place] [id number] Jan, [facility] [address] [facility] [id number] [address] [place] [phone] Jan, [facility] [address] [facility] [id number] [address] [place] [phone] Jan, [facility] [address] [facility] [id number] [address] [place] [phone] Jan, [facility] [address] [facility] [id number] [address] [place] [phone] August, IMMUNIZATIONS No Known Immunizations SOCIAL HISTORY [...] surgery Hospitalization History [facility], indeann webber treatment few times for BH
--- OUTSIDE RECORDS SUMMARY | 2019-09-29 10:53 | XMS REPORT ---
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 Active 71697136 Problem Open-angle glaucoma of both eyes, unspecified glaucoma stage, unspecified open-angle glaucoma type H40.10X0 Acti ve 85948802 Problem Adjustment disorder, unspecified type F43.20 Active 81637964 Problem Obstructive sleep apnea G47.33 Active 66944197 Problem Hypertensive retinopathy of both eyes H35.033 Active 6496750 Problem Type 2 diabetes mellitus with complication E11.8 Active 67655105 Problem Essential hypertension I10 Active 59303907 Problem Diabetes E11.9 Active 72492598 Problem Bipolar disorder, in partial remission, most rec ent episode manic F31.73 Active 54493678 Problem Intermittent explosive disorder in adult F63.81 Active 66345059 Problem Other diabetic neurological complication associated with type 2 diabetes mellitus E11.49 Active 480435045 Problem Depression F32.9 Active 65331737 Problem Neuropathy G62.9 Active 885319936 Problem Intermittent explosive disorder F63.81 Active 31924725 Problem Bipolar disorder, unspecified F31.9 Active 33058343 Problem Mild intellectual disability F70 A ctive 32097026 Problem Reactive airway disease, mild intermittent, uncomplicated J45.20 Active 914230809 Problem Gastroesophageal reflux disease without esophagitis K21.9 Active [id number] ALLERGIES No Information ENCOUNTERS Encounter Location Date Diagnosis [facility], [place] [address] [facility] [id number] [address] [place] [id number] Oct, [facility] [place] [address] [facility] [id number] [address] [place] [phone] August, [facility] [address] [facility] [id number] [address] [place] [address] [id number] August, Dental caries K02.9 [facility], [place] [address] [place] [id number] [address] [place] [phone] Jul, Onychomycosis B35.1 ; Other diabetic neurological complication associated with type 2 diabetes mellitus E11.49 and Tinea pedis of both feet B35.3 [facility] [address] [facility] [id number] [address] [place] [address] [id number] Jul, Caries K02.9 [facility], [place] [address] [facility] [id number] [address] [place] [phone] Jul, Type 2 diabetes mellitus wit h complication E11.8 ; Tobacco abuse Z72.0 and Bipolar disorder, unspecified F31.9 [facility], [place] [address] [place] [id number] [address] [place] [phone] Jun, [facility] [address] [place] [id number] [address] [place] [address] [id number] Jun, Dental examination Z01.20 an d Oral health maintenance status requiring routine preventive dental care K08.9 [facility], [place] [address] [place] [id number] [address] [place] [phone] May, Bilateral impacted cerumen H 61.23 [facility], [place] [address] [place] [id number] [address] [place] [phone] Apr, Bipolar disorder, unspecifie d F31.9 ; Intermittent explosive disorder in adult F63.81 ; Type 2 diabetes mellitus with complication E11.8 ; Tobacco abuse Z72.0 and Colon cancer screening Z12.11 [facility], [place] [address] [place] [id number] [address] [place] [phone] Apr, Onychomycosis B35.1 and Othe r diabetic neurological complication associated with type 2 diabetes mellitus E11.49 [facility], [place] [address] [place] [id number] [address] [place] [phone] Apr, Intermittent explosive disor salvatore in adult F63.81 ; Bipolar disorder, unspecified F31.9 and Mild intellectual disability F70 [facility], [place] [address] [facility] [id number] [address] [place] [phone] 03 Mar, 2018 Diabetes E11.9 [facility] [address] [facility] [id number] [address] [place] [phone] 20 Jan, 2018 Encounter for immunization Z 23 [facility], [place] [address] [place] [id number] [address] [place] [phone] Jan, Tinea pedis of both feet B35 .3 ; Other diabetic neurological complication associated with type 2 diabetes mellitus E11.49 and Onychomycosis B35.1 [facility], [place] [address] [place] [id number] [address] [place] [phone] Nov, Type 2 diabetes mellitus wit h complication E11.8 [facility], [place] [id number] [place] [phone] Nov, [facility], [place] [address] [place] [address] Oct, Intermittent explosive disor salvatore in adult F63.81 ; Bipolar disorder, unspecified F31.9 and Mild intellectual disability F70 [facility], [place] [address] [place] [id number] [address] [place] [id number] 11 Oct, 2017 [facility] [address] [place] [id number] [address] [place] [address] [phone] Oct, Dental examination Z01.20 [facility], [place] [address] [place] [id number] [address] [place] [phone] Oct, Onychomycosis B35.1 and Othe r diabetic neurological complication associated with type 2 diabetes mellitus E11.49 [facility], [place] [address] [facility] [id number] [address] [place] [phone] Sep, Type 2 diabetes mellitus wit h complication E11.8 and Colon cancer screening Z12.11 [facility], [place] [address] [place] [id number] [address] [place] [phone] Sep, Type 2 diabetes mellitus wit h complication E11.8 ; Colon cancer screening Z12.11 and Neuropathy G62.9 [facility], [place] [address] [place] [id number] [address] [place] [phone] August, Diabetes E11.9 [facility] [address] [facility] [id number] [address] [place] [address] [id number] Jul, Dental examination Z01.20 [facility], [place] [address] [place] [id number] [address] [place] [phone] May, Mild intellectual disability F70 [facility], [place] [address] [address] May, Mild intellectual disability F70 ; High risk medication use Z79.899 ; Intermittent explosive disorder in adult F63.81 and Bipolar disorder, unspecified F31.9 [facility], [place] [address] [place] [id number] [place] [phone] May, [facility], [place] [address] [place] [id number] [address] [place] [phone] May, [facility], [place] [address] [address] Apr, Type 2 diabetes mellitus wit h complication E11.8 ; Mild intellectual disability F70 ; Gastroesophageal reflux disease without esophagitis K21.9 ; Reactive airway disease, mild intermittent, uncomplicated J45.20 and Tobacco abuse Z72.0 [facility], [place] [address] [place] [id number] [address] [place] [id number] Apr, High risk medication use Z79 .899 ; Mild intellectual disability F70 ; Intermittent explosive disorder in adult F63.81 and Bipolar disorder, unspecified F31.9 [facility] [id number] [place] [address] [phone] Mar, Encounter for dental exam an d cleaning w/o abnormal findings Z01.20 [facility] [address] [place] [id number] [address] [place] [address] [id number] Mar, Dental examination Z01.20 [facility], [place] [address] [id number] [address] [place] [phone] 12 Jan, 2017 [facility], [place] [address] [id number] [address] [place] [phone] 11 Jan, 2017 [facility], [place] [address] [id number] [address] [place] [phone] 10 Jan, 2017 Mild intellectual disability F70 ; Bipolar disorder, unspecified F31.9 and Intermittent explosive disorder in adult F63.81 [facility], [place] [address] [id number] [address] [place] [phone] 02 Jan, 2017 Diabetes E11.9 [facility] [address] [id number] [address] [place] [address] [id number] 13 Dec, 2016 Encounter for dental examina tion and cleaning without abnormal findings Z01.20 [facility], [place] [address] [id number] [address] [place] [phone] 12 Dec, 2016 Bipolar disorder, unspecifie d F31.9 ; Intermittent explosive disorder in adult F63.81 and Mild intellectual disability F70 [facility], [place] [address] [id number] [address] [place] [phone] Nov, Diabetes E11.9 [facility], [place] [address] [id number] [address] [place] [phone] Nov, [facility], [place] [address] [id number] [address] [place] [phone] 14 Nov, 2016 Diabetes E11.9 and Colon can cer screening Z12.11 [place] [id number] [facility] [id number] [place] [address] [id number] 21 Sep, 2016 Dental examination Z01.20 [facility] [address] [id number] [address] [place] [address] [id number] 21 Sep, 2016 Encounter for dental examina tion and cleaning without abnormal findings Z01.20 [facility], [place] [address] [id number] [address] [place] [id number] 13 Sep, 2016 Bipolar disorder, unspecifie d F31.9 [facility], [place] [address] [facility] [id number] [address] [place] [phone] 12 Sep, 2016 Bipolar disorder, unspecifie d F31.9 [facility], [place] [address] [facility] [id number] [address] [place] [phone] Jul, [facility], [place] [address] [facility] [id number] [address] [place] [phone] 13 Jul, 2016 Type 2 diabetes mellitus wit h complication E11.8 [facility] [address] [id number] [address] [place] [address] [id number] 15 Jun, 2016 Encounter for dental examina tion and cleaning without abnormal findings Z01.[id number] [place] [address] [id number] 15 Jun, 2016 Dental examination Z01.20 [facility], [place] [address] [facility] [id number] [address] [place] [phone] 18 Apr, 2016 Sports physical Z02.5 [facility], [place] [address] [facility] [id number] [address] [place] [phone] 14 Mar, 2016 Bipolar disorder, in partial remission, most recent episode manic F31.73 and Intermittent explosive disorder in adult F63.81 [facility], [place] [address] [facility] [id number] [address] [place] [phone] 08 Mar, 2016 [facility], [place] [address] [facility] [id number] [address] [place] [phone] 06 Mar, 2016 Diabetes E11.9 [facility] [address] [id number] [address] [place] [address] [id number] 03 Feb, 2016 Encounter for dental examina tion and cleaning without abnormal findings Z01.20 [facility] [place] [address] [facility] [id number] [address] [place] [phone] 22 Dec, 2015 Nocturnal hypoxemia G47.34 a nd Encounter for immunization Z23 [facility], [place] [address] [facility] [id number] [address] [place] [phone] 15 Dec, 2015 [facility], [place] [address] [facility] [id number] [address] [place] [phone] Dec, [facility], [place] [address] [facility] [id number] [address] [place] [phone] Dec, Bipolar disorder, unspecifie d F31.9 [facility] [address] [id number] [address] [place] [address] [id number] Oct, Encounter for dental examina tion and cleaning without abnormal findings Z01.20 [facility] [address] [id number] [id number] 13 Oct, 2015 Dental examination Z01.20 [facility], [place] [address] [facility] [id number] [address] [place] [phone] Oct, Diabetes E11.9 [facility], [place] [address] [facility] [id number] [address] [place] [phone] Oct, Diabetes E11.9 ; Reactive ai rway disease, mild intermittent, uncomplicated J45.20 and Tobacco abuse Z72.0 [facility], [place] [address] [facility] [id number] [address] [place] [phone] Sep, Bipolar disorder, unspecifie d F31.9 and Depression F32.9 [facility], [place] [address] [facility] [id number] [address] [place] [phone] Sep, [facility], [place] [address] [place] [id number] [address] [place] [phone] August, Tinea pedis of both feet B35 .3 and DM w/o complication type II, uncontrolled E11.65 [facility], [place] [address] [facility] [id number] [address] [place] [phone] Jul, [facility], [place] [address] [facility] [id number] [address] [place] [id number] Jul, [facility], [place] [address] [facility] [id number] [address] [place] [phone] Jul, Obstructive sleep apnea G47. 33 [facility], [place] [address] [place] [id number] [address] [place] [id number] Jun, Diabetes E11.9 [facility], [place] [address] [address] Jun, [facility], [place] [address] [address] Jun, [place] [address] [id number] Jun, Bipolar disorder, unspecifie d F31.9 and Mental retardation F79 [place] [address] [address] Apr, [place] [address] [address] Feb, Diabetes E11.9 ; Encounter f or immunization Z23 ; Cough R05 and Nicotine abuse Z72.0 [place] [address] [id number] Jan, Bipolar disorder, unspecifie d F31.9 and Diabetes mellitus without mention of complication, type II or unspecified type, uncontrolled 250.02 [place] [address] [id number] Jan, [place] [address] [address] Dec, Reactive airway disease 493. 90 and Enuresis 788.30 [place] [address] [address] Dec, [place] [address] [address] Nov, [place] [address] [address] Nov, [place] [address] [address] Nov, Annual physical exam V70.0 ; Urinary incontinence 788.30 ; Diabetes 250.00 and Hypertension 401.9 [facility], [place] [address] [id number] [address] [place] [phone] Oct, Diabetes mellitus without me ntion of complication, type II or unspecified type, uncontrolled 250.02 [facility], [place] [address] [id number] [address] [place] [phone] Oct, Diabetes mellitus without me ntion of complication, type II or unspecified type, uncontrolled 250.02 [facility] [place] [address] [id number] [address] [place] [phone] Oct, Diabetes mellitus without me ntion of complication, type II or unspecified type, uncontrolled 250.02 [facility] [place] [address] [id number] [address] [place] [id number] Oct, [facility] [place] [address] [id number] [address] [place] [phone] Oct, [facility] [place] [address] [id number] [address] [place] [phone] Oct, Bipolar disorder, unspecifie d 296.80 [facility] [id number] [place] [address] [id number] Sep, Dental examination V72.2 [facility] [place] [address] [id number] [address] [place] [phone] August, [facility] [address] [id number] [place] [address] [id number] August, Dental examination V72.2 [facility] [place] [address] [id number] [address] [place] [phone] August, [facility] [place] [address] [id number] [address] [place] [phone] Jul, [facility], [place] [address] [id number] [address] [place] [phone] Jul, [facility] [place] [address] [facility] [id number] [address] [place] [phone] 17 Jun, 2014 [facility] [address] [id number] [address] [place] [address], [place] [id number] 17 Jun, 2014 [facility] [address] [id number] [address] [place] [address], [place] [phone] 17 Jun, 2014 [facility] [address] [id number] [address] [place] [address], [place] [id number] 17 Jun, 2014 [facility] [address] [id number] [address] [place] [address], [place] [id number] 23 May, 2014 [facility] [address] [id number] [address] [place] [address], [place] [address] 23 May, 2014 [facility] [address] [id number] [address] [place] [address], [place] [id number] 16 May, 2014 [facility] [address] [id number] [address] [place] [address], [place] [id number] 16 May, 2014 [facility] [address] [id number] [address] [place] [address], [place] [id number] 16 May, 2014 [facility] [address] [id number] [address] [place] [address], [place] [address] 16 May, 2014 [facility] [address] [id number] [address] [place] [address], [place] [id number] 16 May, 2014 [facility] [address] [id number] [address] [place] [address], [place] [address] 16 May, 2014 [facility] [address] [id number] [address] [place] [address], [place] [id number] 16 May, 2014 [facility] [address] [id number] [address] [place] [address], [place] [id number] 16 May, 2014 [facility] [address] [id number] [address] [place] [phone] 16 May, 2014 [facility] [address] [id number] [address] [place] [address], [place] [id number] May, [facility] [address] [id number] [address] [place] [address], [place] [address] May, [facility] [address] [id number] [address] [place] [address], [place] [address] May, [facility] [address] [id number] [address] [place] [address], [place] [id number] May, [facility] [address] [id number] [address] [place] [address], [place] [address] Apr, [facility] [address] [id number] [address] [place] [address], [place] [id number] Apr, [facility] [address] [id number] [address] [place] [address], [place] [id number] Apr, [facility] [address] [id number] [address] [place] [address], [place] [id number] Apr, [facility] [address] [id number] [address] [place] [address], [place] [id number] Apr, [facility] [address] [id number] [address] [place] [address], [place] [id number] Apr, [facility] [address] [id number] [address] [place] [address], [place] [id number] Apr, [facility] [address] [id number] [address] [place] [address], [place] [id number] Apr, [facility] [address] [id number] [address] [place] [phone] Apr, [facility] [address] [id number] [address] [place] [address], [place] [address] Apr, [facility] [address] [id number] [address] [place] [address], [place] [address] Apr, [facility] [address] [id number] [address] [place] [address], [place] [address] Apr, [facility] [address] [id number] [address] [place] [id number] 10 Mar, 2014 [facility] [address] [id number] [address] [place] [address], [place] [id number] Mar, [facility] [address] [id number] [address] [place] [address], [place] [id number] Mar, [facility] [address] [id number] [address] [place] [address], [place] [id number] Mar, [facility] [address] [id number] [address] [place] [address], [place] [id number] Mar, [facility] [address] [id number] [address] [place] [address], [place] [id number] Mar, [facility] [address] [id number] [address] [place] [address], [place] [id number] Feb, [facility] [address] [id number] [address] [place] [address], [place] [id number] Feb, [facility] [address] [id number] [address] [place] [address], [place] [id number] Feb, [facility] [address] [id number] [address] [place] [address], [place] [id number] Feb, [facility] [address] [id number] [address] [place] [address], [place] [id number] 14 Jan, 2014 [facility] [address] [id number] [address] [place] [address], [place] [id number] 14 Jan, 2014 [facility] [address] [id number] [address] [place] [address], [place] [id number] 14 Jan, 2014 [facility] [address] [id number] [address] [place] [address], [place] [id number] 14 Jan, 2014 [facility] [address] [id number] [address] [place] [address], [place] [id number] 22 Dec, 2013 [facility] [address] [id number] [address] [place] [address], [place] [id number] 22 Dec, 2013 [facility] [address] [id number] [address] [place] [id number] 15 Dec, 2013 [facility] [address] [id number] [address] [place] [id number] Dec, [facility] [address] [id number] [address] [place] [id number] Nov, [facility] [address] [id number] [address] [place] [address], [place] [id number] Nov, [facility] [address] [id number] [address] [place] [address], [place] [id number] Nov, [facility] [address] [id number] [address] [place] [address], [place] [address] Nov, [facility] [address] [id number] [address] [place] [address], [place] [id number] Nov, [facility] [address] [id number] [address] [place] [address], [place] [address] Nov, [facility] [address] [id number] [address] [place] [address], [place] [address] Nov, [facility] [address] [id number] [address] [place] [address], [place] [address] Oct, [facility] [address] [id number] [address] [place] [address], [place] [address] Oct, [facility] [address] [id number] [address] [place] [address], [place] [address] Oct, [facility] [address] [id number] [address] [place] [address], [place] [address] Oct, [facility] [address] [id number] [address] [place] [address], [place] [id number] Oct, [facility] [address] [id number] [address] [place] [address], [place] [address] Oct, [facility] [address] [id number] [address] [place] [address], [place] [address] Oct, [facility] [address] [id number] [facility] [place] [address] Sep, [facility] [address] [id number] [address] [place] [address], [place] [id number] Sep, [facility] [address] [id number] [address] [place] [address], [place] [address] Sep, [facility] [address] [id number] [address] [place] [address], [place] [address] Sep, [facility] [address] [id number] [address] [place] [address], [place] [address] Sep, [facility] [address] [id number] [address] [place] [address], [place] [address] Jul, [facility] [address] [id number] [address] [place] [address], [place] [address] Jul, [facility] [address] [id number] [address] [place] [address], [place] [address] Jul, [facility] [address] [id number] [address] [place] [address], [place] [address] Jul, [facility] [address] [id number] [address] [place] [address], [place] [address] Jul, [facility] [address] [id number] [address] [place] [address], [place] [address] Jul, [facility] [address] [id number] [address] [place] [address], [place] [address] Jul, [facility] [address] [id number] [address] [place] [address], [place] [address] Jul, [facility] [address] [id number] [address] [place] [address], [place] [address] Jul, [facility] [address] [id number] [address] [place] [address], [place] [address] Jul, [facility] [address] [id number] [facility] [place] [address] Jul, [facility] [address] [id number] [address] [place] [address], [place] [address] Jul, [facility] [address] [id number] [facility] [place] [address] Jun, [facility] [address] [id number] [address] [place] [address], [place] [address] Jun, [facility] [address] [id number] [address] [place] [address], [place] [address] Jun, [facility] [address] [id number] [address] [place] [address], [place] [address] Jun, [facility] [address] [id number] [address] [place] [address], [place] [address] Jun, [facility] [address] [id number] [address] [place] [address], [place] [address] Jun, [facility] [address] [id number] [address] [place] [address], [place] [address] Jun, [facility] [address] [id number] [address] [place] [address], [place] [address] Jun, [facility] [address] [id number] [address] [place] [address], [place] [address] May, [facility] [address] [id number] [address] [place] [address], [place] [address] May, [facility] [address] [id number] [address] [place] [address], [place] [address] May, [facility] [address] [id number] [address] [place] [address], [place] [address] May, [facility] [address] [id number] [address] [place] [address], [place] [address] May, [facility] [address] [id number] [address] [place] [address], [place] [address] May, [facility] [address] [id number] [address] [place] [address], [place] [address] May, [facility] [address] [id number] [address] [place] [address], [place] [address] May, [facility] [address] [id number] [address] [place] [address], [place] [address] Apr, [facility] [address] [id number] [address] [place] [address], [place] [address] Apr, [facility] [address] [id number] [address] [place] [address], [place] [address] Apr, [facility] [address] [id number] [address] [place] [address], [place] [address] Apr, [facility] [address] [id number] [address] [place] [address], [place] [address] Mar, [facility] [address] [id number] [address] [place] [address], [place] [address] Mar, [facility] [address] [id number] [address] [place] [address], [place] [address] Mar, [facility] [address] [id number] [address] [place] [address], [place] [address] Feb, [facility] [address] [id number] [address] [place] [address], [place] [address] Feb, [facility] [address] [id number] [address] [place] [address], [place] [address] Feb, [facility] [address] [id number] [address] [place] [address], [place] [address] Feb, [facility] [address] [id number] [address] [place] [address], [place] [address] Feb, [facility] [address] [id number] [address] [place] [address], [place] [address] Feb, [facility] [address] [id number] [address] [place] [address], [place] [address] Jan, [facility] [address] [id number] [address] [place] [address], [place] [address] Jan, [facility] [address] [id number] [address] [place] [address], [place] [address] Jan, [facility] [address] [id number] [address] [place] [address], [place] [address] Jan, [facility] [address] [id number] [address] [place] [address], [place] [address] Jan, [facility] [address] [id number] [address] [place] [address], [place] [address] Jan, [facility] [address] [id number] [address] [place] [address], [place] [address] Jan, [facility] [address] [id number] [address] [place] [address], [place] [address] Dec, [facility] [address] [id number] [address] [place] [address], [place] [address] 16 Dec, 2012 [facility] [address] [id number] [address] [place] [address], [place] [address] 10 Dec, 2012 [facility] [address] [id number] [address] [place] [address], [place] [id number] 05 Dec, 2012 [facility] [address] [id number] [address] [place] [address], [place] [address] Nov, [facility] [address] [id number] [address] [place] [address], [place] [address] Nov, [facility] [address] [id number] [address] [place] [address], [place] [address] Nov, [facility] [address] [id number] [address] [place] [address], [place] [address] Nov, [facility] [address] [id number] [address] [place] [address], [place] [address] Nov, [facility] [address] [id number] [address] [place] [address], [place] [address] Nov, [facility] [address] [id number] [address] [place] [address], [place] [address] Nov, [facility] [address] [id number] [address] [place] [address], [place] [address] Oct, [facility] [address] [id number] [address] [place] [address], [place] [address] Oct, [facility] [address] [id number] [address] [place] [address], [place] [address] Oct, [facility] [address] [id number] [address] [place] [address], [place] [address] Oct, [facility] [address] [id number] [address] [place] [address], [place] [address] Oct, [facility] [address] [id number] [address] [place] [address], [place] [address] Oct, [facility] [address] [id number] [address] [place] [address], [place] [id number] Oct, [facility] [address] [id number] [address] [place] [address], [place] [address] Oct, [facility] [address] [id number] [address] [place] [address] [address] Sep, [facility] [id number] [place] [id number] August, [facility] [address] [id number] [address] [place] [address], [place] [address] August, [facility] [address] [id number] [address] [place] [address], [place] [address] Jul, [facility] [address] [id number] [address] [place] [address], [place] [address] Jul, [facility] [address] [id number] [address] [place] [address], [place] [address] 25 Jul, 2012 [facility] [address] [id number] [address] [place] [address], [place] [address] 22 Jul, 2012 [facility] [address] [id number] [address] [place] [address], [place] [address] 18 Jul, 2012 [facility] [address] [id number] [address] [place] [address], [place] [address] 17 Jul, 2012 [facility] [address] [id number] [address] [place] [address], [place] [address] 16 Jul, 2012 [facility] [address] [id number] [address] [place] [address], [place] [address] 21 Jun, 2012 [facility] [address] [id number] [address] [place] [address], [place] [id number] 18 Jun, 2012 [facility] [address] [id number] [address] [place] [address], [place] [address] Jun, [facility] [address] [id number] [address] [place] [address], [place] [address] 04 Jun, 2012 [facility] [address] [id number] [address] [place] [address], [place] [address] 04 Jun, 2012 [facility] [address] [id number] [address] [place] [address], [place] [address] May, [facility] [address] [id number] [address] [place] [address], [place] [address] 18 May, 2012 [facility] [address] [id number] [address] [place] [address], [place] [address] 04 May, 2012 [facility] [address] [id number] [address] [place] [address], [place] [address] 15 Apr, 2012 [facility] [address] [id number] [address] [place] [address], [place] [address] 14 Apr, 2012 [facility] [address] [id number] [address] [place] [address], [place] [address] 07 Apr, 2012 [facility] [address] [id number] [address] [place] [address], [place] [address] Mar, [facility] [address] [id number] [address] [place] [address], [place] [address] Mar, [facility] [address] [id number] [address] [place] [address], [place] [address] Mar, [facility] [address] [id number] [address] [place] [address], [place] [address] Mar, [facility] [address] [id number] [address] [place] [address], [place] [address] Mar, [facility] [address] [id number] [address] [place] [address], [place] [address] Mar, [facility] [address] [id number] [address] [place] [address], [place] [address] Feb, [facility] [address] [id number] [address] [place] [address], [place] [address] Feb, [facility] [address] [id number] [address] [place] [address], [place] [address] Jan, [facility] [address] [id number] [address] [place] [address], [place] [address] Jan, [facility] [address] [id number] [address] [place] [address], [place] [address] Dec, [facility] [address] [id number] [address] [place] [address], [place] [address] Nov, [facility] [address] [id number] [address] [place] [address], [place] [address] Nov, [facility] [address] [id number] [address] [place] [address], [place] [address] Nov, [facility] [address] [id number] [address] [place] [address], [place] [address] Nov, [facility] [address] [id number] [address] [place] [address], [place] [address] Oct, [facility] [address] [id number] [address] [place] [address], [place] [address] Oct, [facility] [address] [id number] [address] [place] [address], [place] [address] Oct, [facility] [address] [id number] [address] [place] [address], [place] [address] Sep, [facility] [address] [id number] [address] [place] [address], [place] [address] Sep, [facility] [address] [id number] [address] [place] [address], [place] [address] Sep, [facility] [address] [id number] [address] [place] [address], [place] [address] August, [facility] [address] [id number] [address] [place] [address], [place] [address] August, [facility] [address] [id number] [address] [place] [address], [place] [address] Jul, [facility] [address] [id number] [address] [place] [address], [place] [id number] 24 Jul, 2011 [facility] [address] [id number] [address] [place] [address], [place] [address] Jul, [facility] [address] [id number] [address] [place] [address], [place] [id number] Jul, [facility] [address] [id number] [address] [place] [address], [place] [address] Jun, [facility] [address] [id number] [address] [place] [address], [place] [address] May, [facility] [address] [id number] [address] [place] [address], [place] [address] Apr, [facility] [address] [id number] [address] [place] [address], [place] [address] Apr, [facility] [address] [id number] [address] [place] [address], [place] [address] Apr, [facility] [address] [id number] [address] [place] [address], [place] [address] Apr, [facility] [address] [id number] [address] [place] [address], [place] [address] Apr, [facility] [address] [id number] [address] [place] [address], [place] [address] Apr, [facility] [address] [id number] [address] [place] [address], [place] [address] Mar, [facility] [address] [id number] [address] [place] [address], [place] [address] Mar, [facility] [address] [id number] [address] [place] [address], [place] [address] Feb, [facility] [address] [id number] [address] [place] [address], [place] [id number] Feb, [facility] [address] [id number] [address] [place] [address], [place] [address] Feb, [facility] [address] [id number] [address] [place] [address], [place] [id number] Feb, [facility] [address] [id number] [address] [place] [address], [place] [address] Jan, [facility] [address] [id number] [address] [place] [address], [place] [id number] Jan, [facility] [address] [id number] [address] [place] [address], [place] [address] Jan, [facility] [address] [id number] [address] [place] [address], [place] [address] Jan, [facility] [address] [id number] [address] [place] [address], [place] [id number] Nov, [facility] [address] [id number] [address] [place] [address], [place] [id number] Mar, [facility] [address] [id number] [address] [place] [id number] 02 Mar, 2010 [facility] [address] [id number] [address] [place] [id number] 30 Feb, 2010 [facility] [address] [id number] [address] [place] [id number] 15 Feb, 2010 [facility] [address] [id number] [address] [place] [id number] Jan, [facility] [address] [id number] [address] [place] [id number] Jan, [facility] [address] [id number] [address] [place] [id number] Sep, [facility] [address] [id number] [address] [place] [id number] 16 May, 2009 [facility] [address] [id number] [address] [place] [id number] Apr, [facility] [address] [id number] [address] [place] [id number] Mar, [facility] [address] [id number] [address] [place] [id number] 15 Feb, 2009 [facility] [address] [id number] [address] [place] [id number] 10 Feb, 2009 [facility] [address] [id number] [address] [place] [id number] 10 Feb, 2009 [facility] [address] [id number] [address] [place] [id number] 22 Jan, 2009 [facility] [address] [id number] [address] [place] [id number] 13 Jan, 2009 [facility] [address] [id number] [address] [place] [id number] 13 Jan, 2009 [facility] [address] [id number] [address] [place] [id number] Jan, [facility] [place] [address] [facility] [id number] [address] [address] August, IMMUNIZATIONS Vaccine Route Administration Date Status TDAP (ADACEL) Unknown September 07, 2008 Administered SOCIAL HISTORY Never Assessed REASON FOR VISIT [place] [place] VITAL SIGNS MEDICATIONS Unknown [...] age 6 Hospitalization History surgery Hospitalization History [facility], doctors hospital treatment few times for BH
--- OUTSIDE RECORDS SUMMARY | 2019-09-29 10:53 | XMS REPORT ---
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 Active 25304428 Problem Open-angle glaucoma of both eyes, unspecified glaucoma stage, unspecified open-angle glaucoma type H40.10X0 Acti ve 11211168 Problem Adjustment disorder, unspecified type F43.20 Active 12021690 Problem Obstructive sleep apnea G47.33 Active 76333999 Problem Hypertensive retinopathy of both eyes H35.033 Active 0358748 Problem Type 2 diabetes mellitus with complication E11.8 Active 38031978 Problem Essential hypertension I10 Active 03240896 Problem Diabetes E11.9 Active 26054904 Problem Bipolar disorder, in partial remission, most rec ent episode manic F31.73 Active 26399683 Problem Intermittent explosive disorder in adult F63.81 Active 13771229 Problem Other diabetic neurological complication associated with type 2 diabetes mellitus E11.49 Active 778077536 Problem Depression F32.9 Active 92531941 Problem Neuropathy G62.9 Active 344475661 Problem Intermittent explosive disorder F63.81 Active 07332013 Problem Bipolar disorder, unspecified F31.9 Active 00518036 Problem Mild intellectual disability F70 A ctive 29011110 Problem Reactive airway disease, mild intermittent, uncomplicated J45.20 Active 347785481 Problem Gastroesophageal reflux disease without esophagitis K21.9 Active 215174889 ALLERGIES No Information ENCOUNTERS Encounter Location Date Diagnosis [facility] [address] [facility] [id number] [address] [place] [address] Dec, [facility] [address] [facility] [id number] [address] [place] [address] Oct, [facility] [address] [facility] [id number] [place] [address] Oct, [facility] [address] [facility] [id number] [address] [place] [address] August, Intermittent explosive disor salvatore in adult F63.81 ; Bipolar disorder, unspecified F31.9 and Mild intellectual disability F70 [facility] [address] [id number] [address] [place] [address] [id number] August, Dental caries K02.9 [facility] [address] [facility] [id number] [address] [place] [address] Jul, Onychomycosis B35.1 ; Other diabetic neurological complication associated with type 2 diabetes mellitus E11.49 and Tinea pedis of both feet B35.3 [facility] [address] [id number] [address] [place] [address] [id number] Jul, Caries K02.9 [facility] [address] [facility] [id number] [address] [place] [address] Jul, Type 2 diabetes mellitus wit h complication E11.8 ; Tobacco abuse Z72.0 and Bipolar disorder, unspecified F31.9 [facility] [address] [facility] [id number] [address] [place] [address] Jun, [facility] [address] [facility] [id number] [address] [place] [address] [phone] Jun, Dental examination Z01.20 an d Oral health maintenance status requiring routine preventive dental care K08.9 [facility] [address] [facility] [id number] [address] [place] [address] May, Bilateral impacted cerumen H 61.23 [facility] [address] [facility] [id number] [address] [place] [address] Apr, Bipolar disorder, unspecifie d F31.9 ; Intermittent explosive disorder in adult F63.81 ; Type 2 diabetes mellitus with complication E11.8 ; Tobacco abuse Z72.0 and Colon cancer screening Z12.11 [facility] [address] [facility] [id number] [address] [place] [address] Apr, Onychomycosis B35.1 and Othe r diabetic neurological complication associated with type 2 diabetes mellitus E11.49 [facility] [address] [facility] [id number] [address] [place] [address] Apr, Intermittent explosive disor salvatore in adult F63.81 ; Bipolar disorder, unspecified F31.9 and Mild intellectual disability F70 [facility] [address] [facility] [id number] [address] [place] [address] 03 Mar, 2018 Diabetes E11.9 [facility] [address] [facility] [id number] [address] [place] [address] Jan, Encounter for immunization Z 23 [facility] [address] [place] [id number] [address] [place] [address] Jan, Tinea pedis of both feet B35 .3 ; Other diabetic neurological complication associated with type 2 diabetes mellitus E11.49 and Onychomycosis B35.1 [facility] [address] [place] [id number] [address] [place] [address] Nov, Type 2 diabetes mellitus wit h complication E11.8 [facility] [address] [place] [id number] [address] [place] [address] Nov, [facility] [address] [facility] [id number] [address] [place] [address] Oct, Intermittent explosive disor salvatore in adult F63.81 ; Bipolar disorder, unspecified F31.9 and Mild intellectual disability F70 [facility] [address] [facility] [id number] [address] [place] [address] Oct, [facility] [address] [id number] [address] [place] [address] [id number] Oct, Dental examination Z01.20 [facility] [address] [facility] [id number] [address] [place] [address] Oct, Onychomycosis B35.1 and Othe r diabetic neurological complication associated with type 2 diabetes mellitus E11.49 [facility] [address] [facility] [id number] [address] [place] [address] Sep, Type 2 diabetes mellitus wit h complication E11.8 and Colon cancer screening Z12.11 [facility] [address] [facility] [id number] [address] [place] [address] Sep, Type 2 diabetes mellitus wit h complication E11.8 ; Colon cancer screening Z12.11 and Neuropathy G62.9 [facility] [address] [facility] [id number] [address] [place] [address] August, Diabetes E11.9 [facility] [address] [facility] [id number] [address] [place] [address] [id number] Jul, Dental examination Z01.20 [place] [address] [facility] [id number] [address] [place] [address] 27 May, 2017 Mild intellectual disability F70 [place] [address] [facility] [id number] [address] [place] [address] May, Mild intellectual disability F70 ; High risk medication use Z79.899 ; Intermittent explosive disorder in adult F63.81 and Bipolar disorder, unspecified F31.9 [place] [address] [facility] [id number] [address] [place] [address] May, [place] [address] [facility] [id number] [address] [place] [address] May, [facility] [address] [facility] [id number] [address] [place] [address] Apr, Type 2 diabetes mellitus wit h complication E11.8 ; Mild intellectual disability F70 ; Gastroesophageal reflux disease without esophagitis K21.9 ; Reactive airway disease, mild intermittent, uncomplicated J45.20 and Tobacco abuse Z72.0 [place] [address] [facility] [id number] [address] [place] [address] Apr, High risk medication use Z79 .899 ; Mild intellectual disability F70 ; Intermittent explosive disorder in adult F63.81 and Bipolar disorder, unspecified F31.9 [facility] [address] [id number] [address] [place] [address] [id number] Mar, Dental examination Z01.20 [facility] [address] [id number] [address] [place] [address] [id number] 27 Mar, 2017 Encounter for dental exam an d cleaning w/o abnormal findings Z01.20 [facility] [address] [id number] [address] [place] [address] 12 Jan, 2017 [facility] [address] [id number] [address] [place] [address] Jan, [facility] [address] [id number] [address] [place] [address] Jan, Mild intellectual disability F70 ; Bipolar disorder, unspecified F31.9 and Intermittent explosive disorder in adult F63.81 [facility] [address] [id number] [address] [place] [address] 02 Jan, 2017 Diabetes E11.9 [facility] [address] [id number] [address] [place] [address] [id number] 13 Dec, 2016 Encounter for dental examina tion and cleaning without abnormal findings Z01.20 [facility] [address] [id number] [address] [place] [address] 12 Dec, 2016 Bipolar disorder, unspecifie d F31.9 ; Intermittent explosive disorder in adult F63.81 and Mild intellectual disability F70 [facility] [address] [id number] [address] [place] [address] Nov, Diabetes E11.9 [facility] [address] [id number] [address] [place] [address] Nov, [facility] [address] [id number] [address] [place] [address] Nov, Diabetes E11.9 and Colon can cer screening Z12.[address] [id number] [id number] 21 Sep, 2016 Dental examination Z01.20 [facility] [address] [id number] [address] [place] [address] [id number] 21 Sep, 2016 Encounter for dental examina tion and cleaning without abnormal findings Z01.20 [facility] [address] [id number] [address] [place] [address] 13 Sep, 2016 Bipolar disorder, unspecifie d F31.9 [facility] [address] [id number] [address] [place] [address] 12 Sep, 2016 Bipolar disorder, unspecifie d F31.9 [facility] [address] [id number] [address] [place] [address] Jul, [facility] [address] [facility] [id number] [address] [place] [address] Jul, Type 2 diabetes mellitus wit h complication E11.8 [place] [address] [facility] [address] [id number] [id number] 15 Jun, 2016 Dental examination Z01.20 [facility] [address] [id number] [address] [place] [address] [id number] 15 Jun, 2016 Encounter for dental examina tion and cleaning without abnormal findings Z01.20 [facility] [address] [id number] [address] [place] [address] Apr, Sports physical Z02.5 [facility] [address] [id number] [address] [place] [address] 14 Mar, 2016 Bipolar disorder, in partial remission, most recent episode manic F31.73 and Intermittent explosive disorder in adult F63.81 [facility] [address] [id number] [address] [place] [address] 08 Mar, 2016 [facility] [address] [facility] [id number] [address] [place] [address] 06 Mar, 2016 Diabetes E11.9 [facility] [address] [id number] [address] [place] [address] [id number] Feb, Encounter for dental examina tion and cleaning without abnormal findings Z01.20 [facility] [address] [facility] [id number] [address] [place] [address] 22 Dec, 2015 Nocturnal hypoxemia G47.34 a nd Encounter for immunization Z23 [facility] [address] [facility] [id number] [address] [place] [address] 15 Dec, 2015 [facility] [address] [facility] [id number] [address] [place] [address] 12 Dec, 2015 [place] [address] [facility] [id number] [address] [place] [address] Dec, Bipolar disorder, unspecifie d F31.9 [facility] [address] [id number] [address] [place] [address] [id number] Oct, Encounter for dental examina tion and cleaning without abnormal findings Z01.[address] [place] [id number] [place] [address] [id number] Oct, Dental examination Z01.20 [facility] [address] [facility] [id number] [address] [place] [address] Oct, Diabetes E11.9 [place] [address] [facility] [id number] [place] [address] Oct, Diabetes E11.9 ; Reactive ai rway disease, mild intermittent, uncomplicated J45.20 and Tobacco abuse Z72.0 [facility] [address] [place] [id number] [address] [place] [address] Sep, Bipolar disorder, unspecifie d F31.9 and Depression F32.9 [place] [address] [facility] [id number] [address] [place] [address] Sep, [place] [address] [facility] [id number] [place] [address] August, Tinea pedis of both feet B35 .3 and DM w/o complication type II, uncontrolled E11.65 [place] [address] [address] Jul, [facility] [address] [address] Jul, [facility] [address] [address] Jul, Obstructive sleep apnea G47. 33 [place] [address] [address] Jun, Diabetes E11.9 [place] [address] [address] Jun, [place] [address] [address] Jun, [place] [address] [address] Jun, Bipolar disorder, unspecifie d F31.9 and Mental retardation F79 [place] [address] [address] Apr, [place] [address] [address] Feb, Diabetes E11.9 ; Encounter f or immunization Z23 ; Cough R05 and Nicotine abuse Z72.0 [place] [address] [address] Jan, Bipolar disorder, unspecifie d F31.9 and Diabetes mellitus without mention of complication, type II or unspecified type, uncontrolled 250.02 [place] [address] [address] Jan, [place] [address] [address] Dec, Reactive airway disease 493. 90 and Enuresis 788.30 [place] [address] [address] Dec, [facility] [address] [id number] [address] [place] [address] Nov, [facility] [address] [facility] [id number] [address] [place] [address] Nov, [facility] [address] [facility] [id number] [address] [place] [address] Nov, Annual physical exam V70.0 ; Urinary incontinence 788.30 ; Diabetes 250.00 and Hypertension 401.9 [facility] [address] [id number] [address] [place] [address] Oct, Diabetes mellitus without me ntion of complication, type II or unspecified type, uncontrolled 250.02 [facility] [address] [facility] [id number] [address] [place] [address] Oct, Diabetes mellitus without me ntion of complication, type II or unspecified type, uncontrolled 250.02 [facility] [address] [facility] [id number] [address] [place] [address] Oct, Diabetes mellitus without me ntion of complication, type II or unspecified type, uncontrolled 250.02 [facility] [address] [facility] [id number] [address] [place] [address] Oct, [facility] [address] [facility] [id number] [address] [place] [address] Oct, [facility] [address] [facility] [id number] [address] [place] [address] Oct, Bipolar disorder, unspecifie d 296.80 [facility] [address] [id number] [address] [place] [address] [id number] Sep, Dental examination V72.2 [facility] [address] [id number] [address] [place] [address] August, [facility] [address] [id number] [address] [place] [address] [id number] August, Dental examination V72.2 [facility] [address] [id number] [address] [place] [address], [place] [address] August, [facility] [address] [id number] [address] [place] [address], [place] [address] 14 Jul, 2014 [facility] [address] [id number] [address] [place] [address], [place] [address] Jul, [facility] [address] [id number] [address] [place] [address], [place] [address] 17 Jun, 2014 [facility] [address] [id number] [address] [place] [address], [place] [address] Jun, [facility] [address] [id number] [address] [place] [address], [place] [address] Jun, [facility] [address] [id number] [address] [place] [address], [place] [address] Jun, [facility] [address] [id number] [address] [place] [address], [place] [address] May, [facility] [address] [id number] [address] [place] [address], [place] [address] 23 May, 2014 [facility] [address] [id number] [address] [place] [address], [place] [address] 16 May, 2014 [facility] [address] [id number] [address] [place] [address], [place] [address] 16 May, 2014 [facility] [address] [id number] [address] [place] [address] 16 May, 2014 [facility] [address] [id number] [address] [place] [address], [place] [address] 16 May, 2014 [facility] [address] [id number] [address] [place] [address], [place] [address] 16 May, 2014 [facility] [address] [id number] [address] [place] [address], [place] [address] 16 May, 2014 [facility] [address] [id number] [address] [place] [address], [place] [address] 16 May, 2014 [facility] [address] [id number] [address] [place] [address], [place] [address] May, 2014 [facility] [address] [id number] [address] [place] [address], [place] [address] May, 2014 [facility] [address] [id number] [address] [place] [address], [place] [address] May, 2014 [facility] [address] [id number] [address] [place] [address], [place] [address] May, 2014 [facility] [address] [id number] [address] [place] [address], [place] [address] May, 2014 [facility] [address] [id number] [address] [place] [address], [place] [address] May, 2014 [facility] [address] [id number] [address] [place] [address], [place] [address] Apr, [facility] [address] [id number] [address] [place] [address], [place] [address] Apr, [facility] [address] [id number] [address] [place] [address], [place] [address] Apr, [facility] [address] [id number] [address] [place] [address], [place] [address] Apr, [facility] [address] [id number] [address] [place] [address], [place] [address] Apr, [facility] [address] [id number] [address] [place] [address], [place] [address] Apr, [facility] [address] [id number] [address] [place] [address], [place] [address] Apr, [facility] [address] [id number] [address] [place] [address], [place] [address] Apr, [facility] [address] [id number] [address] [place] [address], [place] [address] Apr, [facility] [address] [id number] [address] [place] [address], [place] [address] Apr, [facility] [address] [id number] [address] [place] [address], [place] [address] Apr, [facility] [address] [id number] [address] [place] [address], [place] [address] Apr, [facility] [address] [id number] [address] [place] [address], [place] [address] Mar, [facility] [address] [id number] [address] [place] [address], [place] [address] Mar, [facility] [address] [id number] [address] [place] [address], [place] [address] Mar, [facility] [address] [id number] [address] [place] [address], [place] [address] Mar, [facility] [address] [id number] [address] [place] [address], [place] [address] Mar, [facility] [address] [id number] [address] [place] [address], [place] [address] Mar, [facility] [address] [id number] [address] [place] [address], [place] [address] Feb, [facility] [address] [id number] [address] [place] [address], [place] [address] Feb, [facility] [address] [id number] [address] [place] [address], [place] [address] Feb, [facility] [address] [id number] [address] [place] [address], [place] [address] Feb, [facility] [address] [id number] [address] [place] [address], [place] [address] 14 Jan, 2014 [facility] [address] [id number] [address] [place] [address], [place] [address] 14 Jan, 2014 [facility] [address] [id number] [address] [place] [address], [place] [address] 14 Jan, 2014 [facility] [address] [id number] [address] [place] [address], [place] [address] 14 Jan, 2014 [facility] [address] [id number] [address] [place] [address], [place] [address] Dec, [facility] [address] [id number] [address] [place] [address], [place] [address] Dec, [facility] [address] [id number] [address] [place] [address], [place] [address] 15 Dec, 2013 [facility] [address] [id number] [address] [place] [address], [place] [address] Dec, [facility] [address] [id number] [address] [place] [address], [place] [address] Nov, [facility] [address] [id number] [address] [place] [address], [place] [address] Nov, [facility] [address] [id number] [address] [place] [address], [place] [address] Nov, [facility] [address] [id number] [address] [place] [address], [place] [address] Nov, [facility] [address] [id number] [address] [place] [address], [place] [address] Nov, [facility] [address] [id number] [address] [place] [address], [place] [address] Nov, [facility] [address] [id number] [address] [place] [address], [place] [address] Nov, [facility] [address] [id number] [address] [place] [address], [place] [address] Oct, [facility] [address] [id number] [address] [place] [address], [place] [address] Oct, [facility] [address] [id number] [address] [place] [address], [place] [address] Oct, [facility] [address] [id number] [address] [place] [address], [place] [address] Oct, [facility] [address] [id number] [address] [place] [address], [place] [address] Oct, [facility] [address] [id number] [address] [place] [address], [place] [address] Oct, [facility] [address] [id number] [address] [place] [address], [place] [address] Oct, [facility] [address] [id number] [address] [place] [address], [place] [address] Sep, [facility] [address] [id number] [address] [place] [address], [place] [address] Sep, [facility] [address] [id number] [address] [place] [address], [place] [address] Sep, [facility] [address] [id number] [address] [place] [address], [place] [address] Sep, [facility] [address] [id number] [address] [place] [address], [place] [address] Sep, [facility] [address] [id number] [address] [place] [address], [place] [address] Jul, [facility] [address] [id number] [address] [place] [address], [place] [address] Jul, [facility] [address] [id number] [address] [place] [address], [place] [address] Jul, [facility] [address] [id number] [address] [place] [address], [place] [address] Jul, [facility] [address] [id number] [address] [place] [address], [place] [address] Jul, [facility] [address] [id number] [address] [place] [address], [place] [address] Jul, [facility] [address] [id number] [address] [place] [address], [place] [address] Jul, [facility] [address] [id number] [facility] [place] [address] Jul, [facility] [address] [id number] [address] [place] [address], [place] [address] Jul, [facility] [address] [id number] [address] [place] [address], [place] [address] Jul, [facility] [address] [id number] [address] [place] [address], [place] [address] Jul, [facility] [address] [id number] [address] [place] [address], [place] [address] Jul, [facility] [address] [id number] [address] [place] [address], [place] [address] Jun, [facility] [address] [id number] [address] [place] [address], [place] [address] Jun, [facility] [address] [id number] [address] [place] [address], [place] [address] Jun, [facility] [address] [id number] [address] [place] [address], [place] [address] Jun, [facility] [address] [id number] [address] [place] [address], [place] [address] Jun, [facility] [address] [id number] [address] [place] [address], [place] [address] Jun, [facility] [address] [id number] [address] [place] [address], [place] [address] Jun, [facility] [address] [id number] [address] [place] [address], [place] [address] Jun, [facility] [address] [id number] [address] [place] [address], [place] [address] May, [facility] [address] [id number] [address] [place] [address], [place] [address] May, [facility] [address] [id number] [address] [place] [address], [place] [address] May, [facility] [address] [id number] [address] [place] [address], [place] [address] May, [facility] [address] [id number] [address] [place] [address], [place] [address] May, [facility] [address] [id number] [address] [place] [address], [place] [address] May, [facility] [address] [id number] [address] [place] [address], [place] [address] May, [facility] [address] [id number] [address] [place] [address], [place] [address] May, [facility] [address] [id number] [address] [place] [address], [place] [address] Apr, [facility] [address] [id number] [address] [place] [address], [place] [address] Apr, [facility] [address] [id number] [address] [place] [address], [place] [address] Apr, [facility] [address] [id number] [address] [place] [address], [place] [address] Apr, [facility] [address] [id number] [address] [place] [address], [place] [address] Mar, [facility] [address] [id number] [address] [place] [address], [place] [address] Mar, [facility] [address] [id number] [address] [place] [address], [place] [address] Mar, [facility] [address] [id number] [address] [place] [address], [place] [address] Feb, [facility] [address] [id number] [address] [place] [address], [place] [address] Feb, [facility] [address] [id number] [address] [place] [address], [place] [address] Feb, [facility] [address] [id number] [address] [place] [address], [place] [address] Feb, [facility] [address] [id number] [address] [place] [address], [place] [address] Feb, [facility] [address] [id number] [address] [place] [address], [place] [address] Feb, [facility] [address] [id number] [address] [place] [address], [place] [address] Jan, [facility] [address] [id number] [address] [place] [address], [place] [address] Jan, [facility] [address] [id number] [address] [place] [address], [place] [address] Jan, [facility] [address] [id number] [address] [place] [address], [place] [address] Jan, [facility] [address] [id number] [address] [place] [address], [place] [address] Jan, [facility] [address] [id number] [address] [place] [address], [place] [address] Jan, [facility] [address] [id number] [address] [place] [address], [place] [address] Jan, [facility] [address] [id number] [address] [place] [address], [place] [address] 25 Dec, 2012 [facility] [address] [id number] [address] [place] [address], [place] [address] 16 Dec, 2012 [facility] [address] [id number] [address] [place] [address], [place] [address] 10 Dec, 2012 [facility] [address] [id number] [address] [place] [address], [place] [address] 05 Dec, 2012 [facility] [address] [id number] [address] [place] [address], [place] [address] Nov, [facility] [address] [id number] [address] [place] [address], [place] [address] Nov, [facility] [address] [id number] [address] [place] [address], [place] [address] Nov, [facility] [address] [id number] [address] [place] [address], [place] [address] Nov, [facility] [address] [id number] [address] [place] [address], [place] [address] Nov, [facility] [address] [id number] [address] [place] [address], [place] [address] Nov, [facility] [address] [id number] [address] [place] [address], [place] [address] Nov, [facility] [address] [id number] [address] [place] [address], [place] [address] Oct, [facility] [address] [id number] [address] [place] [address], [place] [address] Oct, [facility] [address] [id number] [address] [place] [address], [place] [address] Oct, [facility] [address] [id number] [address] [place] [address], [place] [address] Oct, [facility] [address] [id number] [address] [place] [address], [place] [address] Oct, [facility] [address] [id number] [address] [place] [address], [place] [address] Oct, [facility] [address] [id number] [address] [place] [address], [place] [address] Oct, [facility] [address] [id number] [address] [place] [address], [place] [address] Oct, [facility] [address] [id number] [address] [place] [address], [place] [address] Sep, [facility] [id number] [place] [id number] August, [facility] [address] [id number] [address] [place] [address], [place] [address] August, [facility] [address] [id number] [address] [place] [address], [place] [address] Jul, [facility] [address] [id number] [address] [place] [address], [place] [address] Jul, [facility] [address] [id number] [address] [place] [address], [place] [address] Jul, [facility] [address] [id number] [address] [place] [address], [place] [address] Jul, [facility] [address] [id number] [address] [place] [address], [place] [address] Jul, [facility] [address] [id number] [address] [place] [address], [place] [address] Jul, [facility] [address] [id number] [address] [place] [address], [place] [address] 16 Jul, 2012 [facility] [address] [id number] [address] [place] [address], [place] [address] Jun, [facility] [address] [id number] [address] [place] [address], [place] [address] Jun, [facility] [address] [id number] [address] [place] [address], [place] [address] Jun, [facility] [address] [id number] [address] [place] [address] Jun, [facility] [address] [id number] [address] [place] [address], [place] [address] Jun, [facility] [address] [id number] [address] [place] [address], [place] [address] May, [facility] [address] [id number] [address] [place] [address], [place] [address] May, [facility] [address] [id number] [address] [place] [address], [place] [address] 04 May, 2012 [facility] [address] [id number] [address] [place] [address], [place] [address] 15 Apr, 2012 [facility] [address] [id number] [address] [place] [address], [place] [address] 14 Apr, 2012 [facility] [address] [id number] [address] [place] [address], [place] [address] 07 Apr, 2012 [facility] [address] [id number] [address] [place] [address], [place] [address] 31 Mar, 2012 [facility] [address] [id number] [address] [place] [address], [place] [address] 31 Mar, 2012 [facility] [address] [id number] [address] [place] [address], [place] [address] Mar, [facility] [address] [id number] [address] [place] [address], [place] [address] Mar, [facility] [address] [id number] [address] [place] [address], [place] [address] Mar, [facility] [address] [id number] [address] [place] [address], [place] [address] Mar, [facility] [address] [id number] [address] [place] [address], [place] [address] Feb, [facility] [address] [id number] [address] [place] [address], [place] [address] Feb, [facility] [address] [id number] [address] [place] [address], [place] [address] Jan, [facility] [address] [id number] [address] [place] [address], [place] [address] Jan, [facility] [address] [id number] [address] [place] [address], [place] [address] Dec, [facility] [address] [id number] [address] [place] [address], [place] [address] Nov, [facility] [address] [id number] [address] [place] [address], [place] [address] Nov, [facility] [address] [id number] [address] [place] [address], [place] [address] Nov, [facility] [address] [id number] [address] [place] [address], [place] [address] Nov, [facility] [address] [id number] [address] [place] [address], [place] [address] Oct, [facility] [address] [id number] [address] [place] [address], [place] [address] Oct, [facility] [address] [id number] [address] [place] [address], [place] [address] Oct, [facility] [address] [id number] [address] [place] [address], [place] [address] Sep, [facility] [address] [id number] [address] [place] [address], [place] [address] Sep, [facility] [address] [id number] [address] [place] [address], [place] [address] Sep, [facility] [address] [id number] [address] [place] [address], [place] [address] August, [facility] [address] [id number] [address] [place] [address], [place] [address] August, [facility] [address] [id number] [address] [place] [address], [place] [address] Jul, [facility] [address] [id number] [address] [place] [address], [place] [address] 24 Jul, 2011 [facility] [address] [id number] [address] [place] [address], [place] [address] Jul, [facility] [address] [id number] [address] [place] [address], [place] [address] Jul, [facility] [address] [id number] [address] [place] [address] Jun, [facility] [address] [id number] [address] [place] [address], [place] [address] May, [facility] [address] [id number] [address] [place] [address], [place] [address] Apr, [facility] [address] [id number] [address] [place] [address], [place] [address] Apr, [facility] [address] [id number] [address] [place] [address], [place] [address] Apr, [facility] [address] [id number] [address] [place] [address], [place] [address] Apr, [facility] [address] [id number] [address] [place] [address], [place] [address] Apr, [facility] [address] [id number] [address] [place] [address], [place] [address] Apr, [facility] [address] [id number] [address] [place] [address], [place] [address] Mar, [facility] [address] [id number] [address] [place] [address], [place] [address] Mar, [facility] [address] [id number] [address] [place] [address], [place] [address] Feb, [facility] [address] [id number] [address] [place] [address], [place] [address] Feb, [facility] [address] [id number] [address] [place] [address], [place] [address] Feb, [facility] [address] [id number] [address] [place] [address], [place] [address] 09 Feb, 2011 [facility] [address] [id number] [address] [place] [address], [place] [address] 20 Jan, 2011 [facility] [address] [id number] [address] [place] [address], [place] [address] 18 Jan, 2011 [facility] [address] [id number] [address] [place] [address], [place] [address] 18 Jan, 2011 [facility] [address] [id number] [address] [place] [address], [place] [address] 18 Jan, 2011 [facility] [address] [id number] [address] [place] [address], [place] [address] 17 Nov, 2010 [facility] [address] [id number] [address] [place] [address], [place] [address] 03 Mar, 2010 [facility] [address] [id number] [address] [place] [address], [place] [address] 02 Mar, 2010 [facility] [address] [id number] [address] [place] [address], [place] [address] 30 Feb, 2010 [facility] [address] [id number] [address] [place] [address], [place] [address] 15 Feb, 2010 [facility] [address] [id number] [address] [place] [address], [place] [address] Jan, [facility] [address] [id number] [address] [place] [address], [place] [address] Jan, [facility] [address] [id number] [address] [place] [address], [place] [address] Sep, [facility] [address] [id number] [address] [place] [address], [place] [address] 16 May, 2009 [facility] [address] [id number] [address] [place] [address], [place] [address] Apr, [facility] [address] [id number] [address] [place] [address], [place] [address] Mar, [facility] [address] [id number] [address] [place] [address], [place] [address] 15 Feb, 2009 [facility] [address] [id number] [address] [place] [address] 10 Feb, 2009 [facility] [address] [id number] [address] [place] [address] Feb, [facility] [address] [facility] [id number] [address] [place] [address] Jan, [facility] [address] [facility] [id number] [address] [place] [address] Jan, [facility] [address] [facility] [id number] [address] [place] [id number] Jan, [facility] [address] [facility] [id number] [address] [place] [id number] Jan, [facility] [address] [facility] [id number] [address] [place] [id number] August, IMMUNIZATIONS No Known Immunizations SOCIAL HISTORY [...] age 6 Hospitalization History surgery Hospitalization History [facility], [facility]bar treatment few times for BH
--- OUTSIDE RECORDS SUMMARY | 2019-09-29 10:54 | XMS REPORT ---
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 Active 70559144 Problem Open-angle glaucoma of both eyes, unspecified glaucoma stage, unspecified open-angle glaucoma type H40.10X0 Acti ve 25507947 Problem Adjustment disorder, unspecified type F43.20 Active 14254587 Problem Obstructive sleep apnea G47.33 Active 23791707 Problem Hypertensive retinopathy of both eyes H35.033 Active 9044888 Problem Type 2 diabetes mellitus with complication E11.8 Active 45956409 Problem Essential hypertension I10 Active 09935143 Problem Diabetes E11.9 Active 87021671 Problem Bipolar disorder, in partial remission, most rec ent episode manic F31.73 Active 32608852 Problem Intermittent explosive disorder in adult F63.81 Active 65288126 Problem Other diabetic neurological complication associated with type 2 diabetes mellitus E11.49 Active 344363452 Problem Depression F32.9 Active 79808402 Problem Neuropathy G62.9 Active 355532886 Problem Intermittent explosive disorder F63.81 Active 89309683 Problem Bipolar disorder, unspecified F31.9 Active 48738979 Problem Mild intellectual disability F70 A ctive 68150690 Problem Reactive airway disease, mild intermittent, uncomplicated J45.20 Active 606716231 Problem Gastroesophageal reflux disease without esophagitis K21.9 Active 912007731 ALLERGIES No Information ENCOUNTERS Encounter Location Date Diagnosis [facility] [address] [facility] [id number] [address] [place] [phone] Oct, [facility] [address] [facility] [id number] [address] [place] [phone] August, [facility] [address] [facility] [id number] [address] [place] [address] [id number] August, Dental caries K02.9 [facility] [address] [place] [id number] [address] [place] [phone] Jul, Onychomycosis B35.1 ; Other diabetic neurological complication associated with type 2 diabetes mellitus E11.49 and Tinea pedis of both feet B35.3 [facility] [address] [facility] [id number] [address] [place] [address] [id number] Jul, Caries K02.9 [facility] [address] [facility] [id number] [address] [place] [phone] Jul, Type 2 diabetes mellitus wit h complication E11.8 ; Tobacco abuse Z72.0 and Bipolar disorder, unspecified F31.9 [facility] [address] [place] [id number] [address] [place] [phone] Jun, [facility] [address] [place] [id number] [address] [place] [address] [phone] Jun, Dental examination Z01.20 an d Oral health maintenance status requiring routine preventive dental care K08.9 [facility] [address] [place] [id number] [address] [place] [phone] May, Bilateral impacted cerumen H 61.23 [facility] [address] [place] [id number] [address] [place] [phone] Apr, Bipolar disorder, unspecifie d F31.9 ; Intermittent explosive disorder in adult F63.81 ; Type 2 diabetes mellitus with complication E11.8 ; Tobacco abuse Z72.0 and Colon cancer screening Z12.11 [facility] [address] [place] [id number] [address] [place] [phone] Apr, Onychomycosis B35.1 and Othe r diabetic neurological complication associated with type 2 diabetes mellitus E11.49 [facility] [address] [place] [id number] [address] [place] [phone] Apr, Intermittent explosive disor salvatore in adult F63.81 ; Bipolar disorder, unspecified F31.9 and Mild intellectual disability F70 [facility] [address] [facility] [id number] [address] [place] [phone] 03 Mar, 2018 Diabetes E11.9 [facility] [address] [facility] [id number] [address] [place] [phone] 20 Jan, 2018 Encounter for immunization Z 23 [facility] [address] [place] [id number] [address] [place] [phone] Jan, Tinea pedis of both feet B35 .3 ; Other diabetic neurological complication associated with type 2 diabetes mellitus E11.49 and Onychomycosis B35.1 [facility] [address] [place] [id number] [address] [place] [phone] Nov, Type 2 diabetes mellitus wit h complication E11.8 [facility] [id number] [place] [phone] Nov, [facility] [address] [place] [phone] Oct, Intermittent explosive disor salvatore in adult F63.81 ; Bipolar disorder, unspecified F31.9 and Mild intellectual disability F70 [facility] [address] [place] [id number] [address] [place] [phone] 11 Oct, 2017 [facility] [address] [place] [id number] [address] [place] [address] [phone] Oct, Dental examination Z01.20 [facility] [address] [place] [id number] [address] [place] [phone] Oct, Onychomycosis B35.1 and Othe r diabetic neurological complication associated with type 2 diabetes mellitus E11.49 [facility] [address] [facility] [id number] [address] [place] [phone] Sep, Type 2 diabetes mellitus wit h complication E11.8 and Colon cancer screening Z12.11 [facility] [address] [place] [id number] [address] [place] [phone] Sep, Type 2 diabetes mellitus wit h complication E11.8 ; Colon cancer screening Z12.11 and Neuropathy G62.9 [facility] [address] [place] [id number] [address] [place] [phone] August, Diabetes E11.9 [facility] [address] [facility] [id number] [address] [place] [address] [id number] Jul, Dental examination Z01.20 [facility] [address] [place] [id number] [address] [place] [phone] May, Mild intellectual disability F70 [facility] [address] [id number] May, Mild intellectual disability F70 ; High risk medication use Z79.899 ; Intermittent explosive disorder in adult F63.81 and Bipolar disorder, unspecified F31.9 [facility] [address] [place] [id number] [place] [phone] May, [facility] [address] [place] [id number] [address] [place] [phone] May, [facility] [address] [id number] Apr, Type 2 diabetes mellitus wit h complication E11.8 ; Mild intellectual disability F70 ; Gastroesophageal reflux disease without esophagitis K21.9 ; Reactive airway disease, mild intermittent, uncomplicated J45.20 and Tobacco abuse Z72.0 [facility] [address] [place] [id number] [address] [place] [phone] Apr, High risk medication use Z79 .899 ; Mild intellectual disability F70 ; Intermittent explosive disorder in adult F63.81 and Bipolar disorder, unspecified F31.9 [facility] [id number] [place] [address] [phone] Mar, Encounter for dental exam an d cleaning w/o abnormal findings Z01.20 [facility] [address] [place] [id number] [address] [place] [address] [id number] Mar, Dental examination Z01.20 [facility] [address] [id number] [address] [place] [phone] 12 Jan, 2017 [facility] [address] [id number] [address] [place] [phone] 11 Jan, 2017 [facility] [address] [id number] [address] [place] [phone] 10 Jan, 2017 Mild intellectual disability F70 ; Bipolar disorder, unspecified F31.9 and Intermittent explosive disorder in adult F63.81 [facility] [address] [id number] [address] [place] [phone] 02 Jan, 2017 Diabetes E11.9 [facility] [address] [id number] [address] [place] [address] [id number] 13 Dec, 2016 Encounter for dental examina tion and cleaning without abnormal findings Z01.20 [facility] [address] [id number] [address] [place] [phone] 12 Dec, 2016 Bipolar disorder, unspecifie d F31.9 ; Intermittent explosive disorder in adult F63.81 and Mild intellectual disability F70 [facility] [address] [id number] [address] [place] [phone] Nov, Diabetes E11.9 [facility] [address] [id number] [address] [place] [phone] Nov, [facility] [address] [id number] [address] [place] [phone] 14 Nov, 2016 Diabetes E11.9 and Colon can cer screening Z12.11 [place] [id number] [facility] [id number] [place] [address] [id number] 21 Sep, 2016 Dental examination Z01.20 [facility] [address] [id number] [address] [place] [address] [id number] 21 Sep, 2016 Encounter for dental examina tion and cleaning without abnormal findings Z01.20 [facility] [address] [id number] [address] [place] [phone] 13 Sep, 2016 Bipolar disorder, unspecifie d F31.9 [facility] [address] [facility] [id number] [address] [place] [phone] 12 Sep, 2016 Bipolar disorder, unspecifie d F31.9 [facility] [address] [facility] [id number] [address] [place] [phone] Jul, [facility] [address] [facility] [id number] [address] [place] [phone] 13 Jul, 2016 Type 2 diabetes mellitus wit h complication E11.8 [facility] [address] [id number] [address] [place] [address] [id number] 15 Jun, 2016 Encounter for dental examina tion and cleaning without abnormal findings Z01.[address] [id number] [place] [address] [id number] 15 Jun, 2016 Dental examination Z01.20 [facility] [address] [facility] [id number] [address] [place] [phone] 18 Apr, 2016 Sports physical Z02.5 [facility] [address] [facility] [id number] [address] [place] [phone] 14 Mar, 2016 Bipolar disorder, in partial remission, most recent episode manic F31.73 and Intermittent explosive disorder in adult F63.81 [facility] [address] [facility] [id number] [address] [place] [phone] 08 Mar, 2016 [facility] [address] [facility] [id number] [address] [place] [id number] 06 Mar, 2016 Diabetes E11.9 [facility] [address] [id number] [address] [place] [address] [id number] 03 Feb, 2016 Encounter for dental examina tion and cleaning without abnormal findings Z01.20 [facility] [address] [facility] [id number] [address] [place] [phone] 22 Dec, 2015 Nocturnal hypoxemia G47.34 a nd Encounter for immunization Z23 [facility] [address] [facility] [id number] [address] [place] [phone] 15 Dec, 2015 [facility] [address] [facility] [id number] [address] [place] [phone] Dec, [facility] [address] [facility] [id number] [address] [place] [phone] Dec, Bipolar disorder, unspecifie d F31.9 [facility] [address] [id number] [address] [place] [address] [phone] Oct, Encounter for dental examina tion and cleaning without abnormal findings Z01.20 [facility] [address] [id number] [id number] 13 Oct, 2015 Dental examination Z01.20 [facility] [address] [facility] [id number] [address] [place] [phone] Oct, Diabetes E11.9 [facility] [address] [facility] [id number] [address] [place] [phone] Oct, Diabetes E11.9 ; Reactive ai rway disease, mild intermittent, uncomplicated J45.20 and Tobacco abuse Z72.0 [facility] [address] [facility] [id number] [address] [place] [phone] Sep, Bipolar disorder, unspecifie d F31.9 and Depression F32.9 [facility] [address] [facility] [id number] [address] [place] [phone] Sep, [facility] [address] [place] [id number] [address] [place] [phone] August, Tinea pedis of both feet B35 .3 and DM w/o complication type II, uncontrolled E11.65 [facility] [address] [facility] [id number] [address] [place] [phone] Jul, [facility] [address] [facility] [id number] [address] [place] [phone] Jul, [facility] [address] [facility] [id number] [address] [place] [phone] Jul, Obstructive sleep apnea G47. 33 [facility] [address] [place] [id number] [address] [place] [phone] Jun, Diabetes E11.9 [facility] [address] [phone] Jun, [facility] [address] [phone] Jun, [place] [address] [phone] Jun, Bipolar disorder, unspecifie d F31.9 and Mental retardation F79 [place] [address] [phone] Apr, [place] [address] [id number] Feb, Diabetes E11.9 ; Encounter f or immunization Z23 ; Cough R05 and Nicotine abuse Z72.0 [place] [address] [id number] Jan, Bipolar disorder, unspecifie d F31.9 and Diabetes mellitus without mention of complication, type II or unspecified type, uncontrolled 250.02 [place] [address] [id number] Jan, [place] [address] [id number] Dec, Reactive airway disease 493. 90 and Enuresis 788.30 [place] [address] [address] Dec, [place] [address] [address] Nov, [place] [address] [id number] Nov, [place] [address] [address] Nov, Annual physical exam V70.0 ; Urinary incontinence 788.30 ; Diabetes 250.00 and Hypertension 401.9 [facility] [address] [id number] [address] [place] [phone] Oct, Diabetes mellitus without me ntion of complication, type II or unspecified type, uncontrolled 250.02 [facility] [address] [id number] [address] [place] [phone] Oct, Diabetes mellitus without me ntion of complication, type II or unspecified type, uncontrolled 250.02 [facility] [address] [id number] [address] [place] [phone] Oct, Diabetes mellitus without me ntion of complication, type II or unspecified type, uncontrolled 250.02 [facility] [address] [id number] [address] [place] [id number] Oct, [facility] [address] [id number] [address] [place] [phone] Oct, [facility] [address] [id number] [address] [place] [phone] Oct, Bipolar disorder, unspecifie d 296.80 [facility] [address] [id number] [place] [address] [id number] Sep, Dental examination V72.2 [facility] [address] [id number] [address] [place] [phone] August, [facility] [address] [id number] [place] [address] [id number] August, Dental examination V72.2 [facility] [address] [id number] [address] [place] [phone] August, [facility] [address] [id number] [address] [place] [phone] Jul, [facility] [address] [id number] [address] [place] [phone] Jul, [facility] [address] [facility] [id number] [address] [place] [phone] 17 Jun, 2014 [facility] [address] [id number] [address] [place] [address], [place] [id number] 17 Jun, 2014 [facility] [address] [id number] [address] [place] [address], [place] [address] 17 Jun, 2014 [facility] [address] [id number] [address] [place] [address], [place] [id number] 17 Jun, 2014 [facility] [address] [id number] [address] [place] [address], [place] [id number] 23 May, 2014 [facility] [address] [id number] [address] [place] [address], [place] [id number] 23 May, 2014 [facility] [address] [id number] [address] [place] [address], [place] [id number] 16 May, 2014 [facility] [address] [id number] [address] [place] [address], [place] [address] 16 May, 2014 [facility] [address] [id number] [address] [place] [address], [place] [address] 16 May, 2014 [facility] [address] [id number] [address] [place] [address], [place] [id number] 16 May, 2014 [facility] [address] [id number] [address] [place] [address], [place] [id number] 16 May, 2014 [facility] [address] [id number] [address] [place] [address], [place] [address] 16 May, 2014 [facility] [address] [id number] [address] [place] [address], [place] [address] 16 May, 2014 [facility] [address] [id number] [address] [place] [address], [place] [address] 16 May, 2014 [facility] [address] [id number] [address] [place] [phone] 16 May, 2014 [facility] [address] [id number] [address] [place] [address], [place] [address] May, [facility] [address] [id number] [address] [place] [address], [place] [address] May, [facility] [address] [id number] [address] [place] [address], [place] [address] May, [facility] [address] [id number] [address] [place] [address], [place] [address] May, [facility] [address] [id number] [address] [place] [address], [place] [address] Apr, [facility] [address] [id number] [address] [place] [address], [place] [address] Apr, [facility] [address] [id number] [address] [place] [address], [place] [address] Apr, [facility] [address] [id number] [address] [place] [address], [place] [address] Apr, [facility] [address] [id number] [address] [place] [address], [place] [address] Apr, [facility] [address] [id number] [address] [place] [address], [place] [address] Apr, [facility] [address] [id number] [address] [place] [address], [place] [address] Apr, [facility] [address] [id number] [address] [place] [address], [place] [address] Apr, [facility] [address] [id number] [address] [place] [phone] Apr, [facility] [address] [id number] [address] [place] [address], [place] [address] Apr, [facility] [address] [id number] [address] [place] [address], [place] [address] Apr, [facility] [address] [id number] [address] [place] [address], [place] [address] Apr, [facility] [address] [id number] [address] [place] [id number] 10 Mar, 2014 [facility] [address] [id number] [address] [place] [address], [place] [address] Mar, [facility] [address] [id number] [address] [place] [address], [place] [id number] Mar, [facility] [address] [id number] [address] [place] [address], [place] [id number] Mar, [facility] [address] [id number] [address] [place] [address], [place] [id number] Mar, [facility] [address] [id number] [address] [place] [address], [place] [id number] Mar, [facility] [address] [id number] [address] [place] [address], [place] [id number] Feb, [facility] [address] [id number] [address] [place] [address], [place] [id number] Feb, [facility] [address] [id number] [address] [place] [address], [place] [id number] Feb, [facility] [address] [id number] [address] [place] [address], [place] [id number] Feb, [facility] [address] [id number] [address] [place] [address], [place] [id number] 14 Jan, 2014 [facility] [address] [id number] [address] [place] [address], [place] [id number] 14 Jan, 2014 [facility] [address] [id number] [address] [place] [address], [place] [id number] 14 Jan, 2014 [facility] [address] [id number] [address] [place] [address], [place] [id number] 14 Jan, 2014 [facility] [address] [id number] [address] [place] [address], [place] [id number] 22 Dec, 2013 [facility] [address] [id number] [address] [place] [address], [place] [id number] 22 Dec, 2013 [facility] [address] [id number] [address] [place] [place] [id number] 15 Dec, 2013 [facility] [address] [id number] [address] [place] [id number] Dec, [facility] [address] [id number] [facility], [place] [address] Nov, [facility] [address] [id number] [address] [place] [address], [place] [address] Nov, [facility] [address] [id number] [address] [place] [address], [place] [address] Nov, [facility] [address] [id number] [address] [place] [address], [place] [address] Nov, [facility] [address] [id number] [address] [place] [address], [place] [address] Nov, [facility] [address] [id number] [address] [place] [address], [place] [address] Nov, [facility] [address] [id number] [address] [place] [address], [place] [address] Nov, [facility] [address] [id number] [address] [place] [address], [place] [address] Oct, [facility] [address] [id number] [address] [place] [address], [place] [address] Oct, [facility] [address] [id number] [address] [place] [address], [place] [address] Oct, [facility] [address] [id number] [address] [place] [address], [place] [address] Oct, [facility] [address] [id number] [address] [place] [address], [place] [address] Oct, [facility] [address] [id number] [address] [place] [address], [place] [address] Oct, [facility] [address] [id number] [address] [place] [address], [place] [address] Oct, [facility] [address] [id number] [facility] [place] [place] [address] Sep, [facility] [address] [id number] [address] [place] [address], [place] [address] Sep, [facility] [address] [id number] [address] [place] [address], [place] [address] Sep, [facility] [address] [id number] [address] [place] [address], [place] [address] Sep, [facility] [address] [id number] [address] [place] [address], [place] [address] Sep, [facility] [address] [id number] [address] [place] [address], [place] [address] Jul, [facility] [address] [id number] [address] [place] [address], [place] [address] Jul, [facility] [address] [id number] [address] [place] [address], [place] [address] Jul, [facility] [address] [id number] [address] [place] [address], [place] [address] Jul, [facility] [address] [id number] [address] [place] [address], [place] [address] Jul, [facility] [address] [id number] [address] [place] [address], [place] [address] Jul, [facility] [address] [id number] [address] [place] [address], [place] [address] Jul, [facility] [address] [id number] [address] [place] [address], [place] [address] Jul, [facility] [address] [id number] [address] [place] [address], [place] [address] Jul, [facility] [address] [id number] [address] [place] [address], [place] [address] Jul, [facility] [address] [id number] [facility] [place] [place] [address] Jul, [facility] [address] [id number] [address] [place] [address], [place] [address] Jul, [facility] [address] [id number] [facility] [place] [place] [address] Jun, [facility] [address] [id number] [address] [place] [address], [place] [address] Jun, [facility] [address] [id number] [address] [place] [address], [place] [address] Jun, [facility] [address] [id number] [address] [place] [address], [place] [address] Jun, [facility] [address] [id number] [address] [place] [address], [place] [address] Jun, [facility] [address] [id number] [address] [place] [address], [place] [address] Jun, [facility] [address] [id number] [address] [place] [address], [place] [address] Jun, [facility] [address] [id number] [address] [place] [address], [place] [address] Jun, [facility] [address] [id number] [address] [place] [address], [place] [address] May, [facility] [address] [id number] [address] [place] [address], [place] [address] May, [facility] [address] [id number] [address] [place] [address], [place] [address] May, [facility] [address] [id number] [address] [place] [address], [place] [address] May, [facility] [address] [id number] [address] [place] [address], [place] [address] May, [facility] [address] [id number] [address] [place] [address], [place] [address] May, [facility] [address] [id number] [address] [place] [address], [place] [address] May, [facility] [address] [id number] [address] [place] [address], [place] [address] May, [facility] [address] [id number] [address] [place] [address], [place] [address] Apr, [facility] [address] [id number] [address] [place] [address], [place] [address] Apr, [facility] [address] [id number] [address] [place] [address], [place] [address] Apr, [facility] [address] [id number] [address] [place] [address], [place] [address] Apr, [facility] [address] [id number] [address] [place] [address], [place] [address] Mar, [facility] [address] [id number] [address] [place] [address], [place] [address] Mar, [facility] [address] [id number] [address] [place] [address], [place] [address] Mar, [facility] [address] [id number] [address] [place] [address], [place] [address] Feb, [facility] [address] [id number] [address] [place] [address], [place] [address] Feb, [facility] [address] [id number] [address] [place] [address], [place] [address] Feb, [facility] [address] [id number] [address] [place] [address], [place] [address] Feb, [facility] [address] [id number] [address] [place] [address], [place] [address] Feb, [facility] [address] [id number] [address] [place] [address], [place] [address] Feb, [facility] [address] [id number] [address] [place] [address], [place] [address] Jan, [facility] [address] [id number] [address] [place] [address], [place] [address] Jan, [facility] [address] [id number] [address] [place] [address], [place] [address] Jan, [facility] [address] [id number] [address] [place] [address], [place] [address] Jan, [facility] [address] [id number] [address] [place] [address], [place] [address] Jan, [facility] [address] [id number] [address] [place] [address], [place] [address] Jan, [facility] [address] [id number] [address] [place] [address], [place] [address] Jan, [facility] [address] [id number] [address] [place] [address], [place] [address] Dec, [facility] [address] [id number] [address] [place] [address], [place] [address] 16 Dec, 2012 [facility] [address] [id number] [address] [place] [address], [place] [address] 10 Dec, 2012 [facility] [address] [id number] [address] [place] [address], [place] [address] 05 Dec, 2012 [facility] [address] [id number] [address] [place] [address], [place] [address] Nov, [facility] [address] [id number] [address] [place] [address], [place] [address] Nov, [facility] [address] [id number] [address] [place] [address], [place] [address] Nov, [facility] [address] [id number] [address] [place] [address], [place] [address] Nov, [facility] [address] [id number] [address] [place] [address], [place] [address] Nov, [facility] [address] [id number] [address] [place] [address], [place] [address] Nov, [facility] [address] [id number] [address] [place] [address], [place] [address] Nov, [facility] [address] [id number] [address] [place] [address], [place] [address] Oct, [facility] [address] [id number] [address] [place] [address], [place] [address] Oct, [facility] [address] [id number] [address] [place] [address], [place] [address] Oct, [facility] [address] [id number] [address] [place] [address], [place] [address] Oct, [facility] [address] [id number] [address] [place] [address], [place] [address] Oct, [facility] [address] [id number] [address] [place] [address], [place] [address] Oct, [facility] [address] [id number] [address] [place] [address], [place] [address] Oct, [facility] [address] [id number] [address] [place] [address], [place] [address] Oct, [facility] [address] [id number] [address] [place] [address], [place] [address] Sep, [facility] [id number] [place] [id number] August, [facility] [address] [id number] [address] [place] [address], [place] [address] August, [facility] [address] [id number] [address] [place] [address], [place] [address] Jul, [facility] [address] [id number] [address] [place] [address], [place] [address] Jul, [facility] [address] [id number] [address] [place] [address], [place] [address] 25 Jul, 2012 [facility] [address] [id number] [address] [place] [address], [place] [address] 22 Jul, 2012 [facility] [address] [id number] [address] [place] [address], [place] [address] 18 Jul, 2012 [facility] [address] [id number] [address] [place] [address], [place] [address] 17 Jul, 2012 [facility] [address] [id number] [address] [place] [address], [place] [address] 16 Jul, 2012 [facility] [address] [id number] [address] [place] [address], [place] [address] 21 Jun, 2012 [facility] [address] [id number] [address] [place] [address], [place] [address] 18 Jun, 2012 [facility] [address] [id number] [address] [place] [address], [place] [address] Jun, [facility] [address] [id number] [address] [place] [address], [place] [address] 04 Jun, 2012 [facility] [address] [id number] [address] [place] [address], [place] [address] 04 Jun, 2012 [facility] [address] [id number] [address] [place] [address], [place] [address] May, [facility] [address] [id number] [address] [place] [address], [place] [address] 18 May, 2012 [facility] [address] [id number] [address] [place] [address], [place] [address] 04 May, 2012 [facility] [address] [id number] [address] [place] [address], [place] [address] 15 Apr, 2012 [facility] [address] [id number] [address] [place] [address], [place] [address] 14 Apr, 2012 [facility] [address] [id number] [address] [place] [address], [place] [address] 07 Apr, 2012 [facility] [address] [id number] [address] [place] [address], [place] [address] Mar, [facility] [address] [id number] [address] [place] [address], [place] [address] Mar, [facility] [address] [id number] [address] [place] [address], [place] [address] Mar, [facility] [address] [id number] [address] [place] [address], [place] [address] Mar, [facility] [address] [id number] [address] [place] [address], [place] [address] Mar, [facility] [address] [id number] [address] [place] [address], [place] [address] Mar, [facility] [address] [id number] [address] [place] [address], [place] [address] Feb, [facility] [address] [id number] [address] [place] [address], [place] [address] Feb, [facility] [address] [id number] [address] [place] [address], [place] [address] Jan, [facility] [address] [id number] [address] [place] [address], [place] [address] Jan, [facility] [address] [id number] [address] [place] [address], [place] [address] Dec, [facility] [address] [id number] [address] [place] [address], [place] [address] Nov, [facility] [address] [id number] [address] [place] [address], [place] [address] Nov, [facility] [address] [id number] [address] [place] [address], [place] [address] Nov, [facility] [address] [id number] [address] [place] [address], [place] [address] Nov, [facility] [address] [id number] [address] [place] [address], [place] [address] Oct, [facility] [address] [id number] [address] [place] [address], [place] [address] Oct, [facility] [address] [id number] [address] [place] [address], [place] [address] Oct, [facility] [address] [id number] [address] [place] [address], [place] [address] Sep, [facility] [address] [id number] [address] [place] [address], [place] [address] Sep, [facility] [address] [id number] [address] [place] [address], [place] [address] Sep, [facility] [address] [id number] [address] [place] [address], [place] [address] August, [facility] [address] [id number] [address] [place] [address], [place] [address] August, [facility] [address] [id number] [address] [place] [address], [place] [address] Jul, [facility] [address] [id number] [address] [place] [address], [place] [address] 24 Jul, 2011 [facility] [address] [id number] [address] [place] [address], [place] [address] Jul, [facility] [address] [id number] [address] [place] [address], [place] [address] Jul, [facility] [address] [id number] [address] [place] [address], [place] [address] Jun, [facility] [address] [id number] [address] [place] [address], [place] [address] May, [facility] [address] [id number] [address] [place] [address], [place] [address] Apr, [facility] [address] [id number] [address] [place] [address], [place] [address] Apr, [facility] [address] [id number] [address] [place] [address], [place] [address] Apr, [facility] [address] [id number] [address] [place] [address], [place] [address] Apr, [facility] [address] [id number] [address] [place] [address], [place] [address] Apr, [facility] [address] [id number] [address] [place] [address], [place] [address] Apr, [facility] [address] [id number] [address] [place] [address], [place] [address] Mar, [facility] [address] [id number] [address] [place] [address], [place] [address] Mar, [facility] [address] [id number] [address] [place] [address], [place] [address] Feb, [facility] [address] [id number] [address] [place] [address], [place] [address] Feb, [facility] [address] [id number] [address] [place] [address], [place] [address] Feb, [facility] [address] [id number] [address] [place] [address], [place] [address] Feb, [facility] [address] [id number] [address] [place] [address], [place] [address] Jan, [facility] [address] [id number] [address] [place] [address], [place] [address] Jan, [facility] [address] [id number] [address] [place] [address], [place] [address] Jan, [facility] [address] [id number] [address] [place] [address], [place] [address] Jan, [facility] [address] [id number] [address] [place] [address], [place] [address] Nov, [facility] [address] [id number] [address] [place] [address], [place] [id number] Mar, [facility] [address] [id number] [address] [place] [phone] 02 Mar, 2010 [facility] [address] [id number] [address] [place] [phone] 30 Feb, 2010 [facility] [address] [id number] [address] [place] [id number] 15 Feb, 2010 [facility] [address] [id number] [address] [place] [phone] Jan, [facility] [address] [id number] [address] [place] [phone] Jan, [facility] [address] [id number] [address] [place] [id number] Sep, [facility] [address] [id number] [address] [place] [id number] 16 May, 2009 [facility] [address] [id number] [address] [place] [id number] Apr, [facility] [address] [id number] [address] [place] [phone] Mar, [facility] [address] [id number] [address] [place] [phone] 15 Feb, 2009 [facility] [address] [id number] [address] [place] [phone] 10 Feb, 2009 [facility] [address] [id number] [address] [place] [phone] 10 Feb, 2009 [facility] [address] [id number] [address] [place] [phone] 22 Jan, 2009 [facility] [address] [id number] [address] [place] [phone] 13 Jan, 2009 [facility] [address] [id number] [address] [place] [id number] 13 Jan, 2009 [facility] [address] [id number] [address] [place] [phone] Jan, [facility] [address] [facility] [id number] [place] [address] August, IMMUNIZATIONS Vaccine Route Administration Date Status Influenza, seasonal, injectable (split), for 3 yrs and up Unknow n Feb 07, 2010 Administered SOCIAL HISTORY Never Assessed REASON FOR VISIT EMR-[facility] [place] OF CARE VITAL SIGNS MEDICATIONS Unknown [...] age 6 Hospitalization History surgery Hospitalization History [facility] treatment few times for BH
--- OUTSIDE RECORDS SUMMARY | 2019-09-29 10:54 | XMS REPORT ---
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 Active 16243152 Problem Open-angle glaucoma of both eyes, unspecified glaucoma stage, unspecified open-angle glaucoma type H40.10X0 Acti ve 75907314 Problem Adjustment disorder, unspecified type F43.20 Active 37931013 Problem Obstructive sleep apnea G47.33 Active 52615177 Problem Hypertensive retinopathy of both eyes H35.033 Active 2998202 Problem Type 2 diabetes mellitus with complication E11.8 Active 61426885 Problem Essential hypertension I10 Active 97879720 Problem Diabetes E11.9 Active 17764747 Problem Bipolar disorder, in partial remission, most rec ent episode manic F31.73 Active 99482417 Problem Intermittent explosive disorder in adult F63.81 Active 46183032 Problem Other diabetic neurological complication associated with type 2 diabetes mellitus E11.49 Active 626236553 Problem Depression F32.9 Active 39997188 Problem Neuropathy G62.9 Active 586909590 Problem Intermittent explosive disorder F63.81 Active 25227345 Problem Bipolar disorder, unspecified F31.9 Active 27555540 Problem Mild intellectual disability F70 A ctive 05334854 Problem Reactive airway disease, mild intermittent, uncomplicated J45.20 Active 988163599 Problem Gastroesophageal reflux disease without esophagitis K21.9 Active 963548062 ALLERGIES No Information ENCOUNTERS Encounter Location Date Diagnosis [facility] [address] [facility] [id number] [address] [place] [phone] Oct, [facility] [address] [facility] [id number] [address] [place] [id number] August, [facility] [address] [facility] [id number] [address] [place] [address] [phone] August, Dental caries K02.9 [facility] [address] [place] [id number] [address] [place] [phone] Jul, Onychomycosis B35.1 ; Other diabetic neurological complication associated with type 2 diabetes mellitus E11.49 and Tinea pedis of both feet B35.3 [facility] [address] [facility] [id number] [address] [place] [address] [phone] Jul, Caries K02.9 [facility] [address] [facility] [id number] [address] [place] [phone] Jul, Type 2 diabetes mellitus wit h complication E11.8 ; Tobacco abuse Z72.0 and Bipolar disorder, unspecified F31.9 [facility] [address] [place] [id number] [address] [place] [phone] Jun, [facility] [address] [place] [id number] [address] [place] [address] [phone] Jun, Dental examination Z01.20 an d Oral health maintenance status requiring routine preventive dental care K08.9 [facility] [address] [place] [id number] [address] [place] [phone] May, Bilateral impacted cerumen H 61.23 [facility] [address] [place] [id number] [address] [place] [phone] Apr, Bipolar disorder, unspecifie d F31.9 ; Intermittent explosive disorder in adult F63.81 ; Type 2 diabetes mellitus with complication E11.8 ; Tobacco abuse Z72.0 and Colon cancer screening Z12.11 [facility] [address] [place] [id number] [address] [place] [phone] Apr, Onychomycosis B35.1 and Othe r diabetic neurological complication associated with type 2 diabetes mellitus E11.49 [facility] [address] [place] [id number] [address] [place] [phone] Apr, Intermittent explosive disor salvatore in adult F63.81 ; Bipolar disorder, unspecified F31.9 and Mild intellectual disability F70 [facility] [address] [facility] [id number] [address] [place] [phone] 03 Mar, 2018 Diabetes E11.9 [facility] [address] [facility] [id number] [address] [place] [phone] 20 Jan, 2018 Encounter for immunization Z 23 [facility] [address] [place] [id number] [address] [place] [phone] Jan, Tinea pedis of both feet B35 .3 ; Other diabetic neurological complication associated with type 2 diabetes mellitus E11.49 and Onychomycosis B35.1 [facility] [address] [place] [id number] [address] [place] [phone] Nov, Type 2 diabetes mellitus wit h complication E11.8 [facility] [address] [place] [phone] Nov, [facility] [address] [place] [phone] Oct, Intermittent explosive disor salvatore in adult F63.81 ; Bipolar disorder, unspecified F31.9 and Mild intellectual disability F70 [facility] [address] [place] [id number] [address] [place] [phone] 11 Oct, 2017 [facility] [address] [place] [id number] [address] [place] [address] [phone] Oct, Dental examination Z01.20 [facility] [address] [place] [id number] [address] [place] [phone] Oct, Onychomycosis B35.1 and Othe r diabetic neurological complication associated with type 2 diabetes mellitus E11.49 [facility] [address] [facility] [id number] [address] [place] [phone] Sep, Type 2 diabetes mellitus wit h complication E11.8 and Colon cancer screening Z12.11 [facility] [address] [place] [id number] [address] [place] [phone] Sep, Type 2 diabetes mellitus wit h complication E11.8 ; Colon cancer screening Z12.11 and Neuropathy G62.9 [facility] [address] [place] [id number] [address] [place] [phone] August, Diabetes E11.9 [facility] [address] [facility] [id number] [address] [place] [address] [phone] Jul, Dental examination Z01.20 [facility] [address] [place] [id number] [address] [place] [phone] May, Mild intellectual disability F70 [facility] [address] [address] May, Mild intellectual disability F70 ; High risk medication use Z79.899 ; Intermittent explosive disorder in adult F63.81 and Bipolar disorder, unspecified F31.9 [facility] [address] [place] [id number] [place] [phone] May, [facility] [address] [place] [id number] [address] [place] [phone] May, [facility] [address] [address] Apr, Type 2 diabetes mellitus wit h complication E11.8 ; Mild intellectual disability F70 ; Gastroesophageal reflux disease without esophagitis K21.9 ; Reactive airway disease, mild intermittent, uncomplicated J45.20 and Tobacco abuse Z72.0 [facility] [address] [place] [id number] [address] [place] [phone] Apr, High risk medication use Z79 .899 ; Mild intellectual disability F70 ; Intermittent explosive disorder in adult F63.81 and Bipolar disorder, unspecified F31.9 [facility] [address] [place] [address] [id number] Mar, Encounter for dental exam an d cleaning w/o abnormal findings Z01.20 [facility] [address] [place] [id number] [address] [place] [address] [phone] Mar, Dental examination Z01.20 [facility] [address] [id number] [address] [place] [phone] 12 Jan, 2017 [facility] [address] [id number] [address] [place] [phone] 11 Jan, 2017 [facility] [address] [id number] [address] [place] [phone] 10 Jan, 2017 Mild intellectual disability F70 ; Bipolar disorder, unspecified F31.9 and Intermittent explosive disorder in adult F63.81 [facility] [address] [id number] [address] [place] [id number] 02 Jan, 2017 Diabetes E11.9 [facility] [address] [id number] [address] [place] [address] [phone] 13 Dec, 2016 Encounter for dental examina tion and cleaning without abnormal findings Z01.20 [facility] [address] [id number] [address] [place] [phone] 12 Dec, 2016 Bipolar disorder, unspecifie d F31.9 ; Intermittent explosive disorder in adult F63.81 and Mild intellectual disability F70 [facility] [address] [id number] [address] [place] [phone] Nov, Diabetes E11.9 [facility] [address] [id number] [address] [place] [phone] Nov, [facility] [address] [id number] [address] [place] [phone] 14 Nov, 2016 Diabetes E11.9 and Colon can cer screening Z12.11 [place] [id number] [facility] [id number] [place] [address] [phone] 21 Sep, 2016 Dental examination Z01.20 [facility] [address] [id number] [address] [place] [address] [id number] 21 Sep, 2016 Encounter for dental examina tion and cleaning without abnormal findings Z01.20 [facility] [address] [id number] [address] [place] [phone] 13 Sep, 2016 Bipolar disorder, unspecifie d F31.9 [facility] [address] [facility] [id number] [address] [place] [phone] 12 Sep, 2016 Bipolar disorder, unspecifie d F31.9 [facility] [address] [facility] [id number] [address] [place] [phone] Jul, [facility] [address] [facility] [id number] [address] [place] [id number] 13 Jul, 2016 Type 2 diabetes mellitus wit h complication E11.8 [facility] [address] [id number] [address] [place] [address] [id number] 15 Jun, 2016 Encounter for dental examina tion and cleaning without abnormal findings Z01.[id number] [place] [address] [id number] 15 Jun, 2016 Dental examination Z01.20 [facility] [address] [facility] [id number] [address] [place] [phone] 18 Apr, 2016 Sports physical Z02.5 [facility] [address] [facility] [id number] [address] [place] [phone] 14 Mar, 2016 Bipolar disorder, in partial remission, most recent episode manic F31.73 and Intermittent explosive disorder in adult F63.81 [facility] [address] [facility] [id number] [address] [place] [phone] 08 Mar, 2016 [facility] [address] [facility] [id number] [address] [place] [phone] 06 Mar, 2016 Diabetes E11.9 [facility] [address] [id number] [address] [place] [address] [id number] 03 Feb, 2016 Encounter for dental examina tion and cleaning without abnormal findings Z01.20 [facility] [address] [facility] [id number] [address] [place] [phone] 22 Dec, 2015 Nocturnal hypoxemia G47.34 a nd Encounter for immunization Z23 [facility] [address] [facility] [id number] [address] [place] [phone] 15 Dec, 2015 [facility] [address] [facility] [id number] [address] [place] [phone] Dec, [facility] [address] [facility] [id number] [address] [place] [phone] Dec, Bipolar disorder, unspecifie d F31.9 [facility] [address] [id number] [address] [place] [address] [phone] Oct, Encounter for dental examina tion and cleaning without abnormal findings Z01.[address] [facility] [address] [id number] [id number] 13 Oct, 2015 Dental examination Z01.20 [facility] [address] [facility] [id number] [address] [place] [phone] Oct, Diabetes E11.9 [facility] [address] [facility] [id number] [address] [place] [phone] Oct, Diabetes E11.9 ; Reactive ai rway disease, mild intermittent, uncomplicated J45.20 and Tobacco abuse Z72.0 [facility] [address] [facility] [id number] [address] [place] [phone] Sep, Bipolar disorder, unspecifie d F31.9 and Depression F32.9 [facility] [address] [facility] [id number] [address] [place] [phone] Sep, [facility] [address] [place] [id number] [address] [place] [phone] August, Tinea pedis of both feet B35 .3 and DM w/o complication type II, uncontrolled E11.65 [facility] [address] [facility] [id number] [address] [place] [phone] Jul, [facility] [address] [facility] [id number] [address] [place] [phone] Jul, [facility] [address] [facility] [id number] [address] [place] [phone] Jul, Obstructive sleep apnea G47. 33 [facility] [address] [place] [id number] [address] [place] [phone] Jun, Diabetes E11.9 [facility] [address] [id number] Jun, [facility] [address] [address] Jun, [place] [address] [address] Jun, Bipolar disorder, unspecifie d F31.9 and Mental retardation F79 [place] [address] [address] Apr, [place] [address] [address] Feb, Diabetes E11.9 ; Encounter f or immunization Z23 ; Cough R05 and Nicotine abuse Z72.0 [place] [address] [address] Jan, Bipolar disorder, unspecifie d F31.9 and Diabetes mellitus without mention of complication, type II or unspecified type, uncontrolled 250.02 [place] [address] [address] Jan, [place] [address] [address] Dec, Reactive airway disease 493. 90 and Enuresis 788.30 [place] [address] [id number] Dec, [place] [address] [address] Nov, [place] [address] [address] Nov, [place] [address] [address] Nov, Annual physical exam V70.0 ; Urinary incontinence 788.30 ; Diabetes 250.00 and Hypertension 401.9 [facility] [address] [id number] [address] [place] [phone] Oct, Diabetes mellitus without me ntion of complication, type II or unspecified type, uncontrolled 250.02 [facility] [address] [id number] [address] [place] [phone] Oct, Diabetes mellitus without me ntion of complication, type II or unspecified type, uncontrolled 250.02 [facility] [address] [id number] [address] [place] [phone] Oct, Diabetes mellitus without me ntion of complication, type II or unspecified type, uncontrolled 250.02 [facility] [address] [id number] [address] [place] [phone] Oct, [facility] [address] [id number] [address] [place] [phone] Oct, [facility] [address] [id number] [address] [place] [phone] Oct, Bipolar disorder, unspecifie d 296.80 [facility] [address] [id number] [place] [address] [id number] Sep, Dental examination V72.2 [facility] [address] [id number] [address] [place] [phone] August, [facility] [address] [id number] [place] [address] [id number] August, Dental examination V72.2 [facility] [address] [id number] [address] [place] [phone] August, [facility] [address] [id number] [address] [place] [phone] Jul, [facility] [address] [id number] [address] [place] [phone] Jul, [facility] [address] [facility] [id number] [address] [place] [phone] 17 Jun, 2014 [facility] [address] [id number] [address] [place] [address], [place] [phone] 17 Jun, 2014 [facility] [address] [id number] [address] [place] [address], [place] [address] 17 Jun, 2014 [facility] [place] [facility] [address] [id number] [address] [place] [address], [place] [phone] 17 Jun, 2014 [facility] [place] [facility] [address] [id number] [address] [place] [address], [place] [address] 23 May, 2014 [facility] [place] [facility] [address] [id number] [address] [place] [address], [place] [phone] 23 May, 2014 [facility] [place] [facility] [address] [id number] [address] [place] [address], [place] [address] 16 May, 2014 [facility] [place] [facility] [address] [id number] [address] [place] [address], [place] [address] 16 May, 2014 [facility] [address] [id number] [address] [place] [address], [place] [address] 16 May, 2014 [facility] [place] [facility] [address] [id number] [address] [place] [address], [place] [address] 16 May, 2014 [facility] [address] [id number] [address] [place] [address], [place] [phone] 16 May, 2014 [facility] [place] [facility] [address] [id number] [address] [place] [address], [place] [address] 16 May, 2014 [facility] [place] [facility] [address] [id number] [address] [place] [address], [place] [address] 16 May, 2014 [facility] [place] [facility] [address] [id number] [address] [place] [address], [place] [address] 16 May, 2014 [facility] [place] [facility] [address] [id number] [address] [place] [phone] 16 May, 2014 [facility] [place] [facility] [address] [id number] [address] [place] [address], [place] [address] May, [facility] [place] [facility] [address] [id number] [address] [place] [address], [place] [address] May, [facility] [address] [id number] [address] [place] [address], [place] [address] May, [facility] [address] [id number] [address] [place] [address], [place] [address] May, [facility] [address] [id number] [address] [place] [address], [place] [address] Apr, [facility] [address] [id number] [address] [place] [address], [place] [address] Apr, [facility] [address] [id number] [address] [place] [address], [place] [address] Apr, [facility] [address] [id number] [address] [place] [address], [place] [address] Apr, [facility] [address] [id number] [address] [place] [address], [place] [address] Apr, [facility] [address] [id number] [address] [place] [address], [place] [address] Apr, [facility] [address] [id number] [address] [place] [address], [place] [address] Apr, [facility] [address] [id number] [address] [place] [address], [place] [address] Apr, [facility] [address] [id number] [address] [place] [phone] Apr, [facility] [address] [id number] [address] [place] [address], [place] [address] Apr, [facility] [address] [id number] [address] [place] [address], [place] [address] Apr, [facility] [address] [id number] [address] [place] [address], [place] [address] Apr, [facility] [address] [id number] [address] [place] [phone] 10 Mar, 2014 [facility] [address] [id number] [address] [place] [address], [place] [address] Mar, [facility] [address] [id number] [address] [place] [address], [place] [address] Mar, [facility] [address] [id number] [address] [place] [address], [place] [address] Mar, [facility] [place] [address] [id number] [address] [place] [address], [place] [address] Mar, [facility] [address] [id number] [address] [place] [address], [place] [address] Mar, [facility] [address] [id number] [address] [place] [address], [place] [address] Feb, [facility] [address] [id number] [address] [place] [address], [place] [id number] Feb, [facility] [place] [facility] [address] [id number] [address] [place] [address], [place] [address] Feb, [facility] [address] [id number] [address] [place] [address], [place] [address] Feb, [facility] [address] [id number] [address] [place] [address], [place] [address] 14 Jan, 2014 [facility] [address] [id number] [address] [place] [address], [place] [address] 14 Jan, 2014 [facility] [address] [id number] [address] [place] [address], [place] [id number] 14 Jan, 2014 [facility] [address] [id number] [address] [place] [address], [place] [id number] 14 Jan, 2014 [facility] [address] [id number] [address] [place] [address], [place] [id number] 22 Dec, 2013 [facility] [address] [id number] [address] [place] [address], [place] [id number] 22 Dec, 2013 [facility] [address] [id number] [address] [place] [address] 15 Dec, 2013 [facility] [address] [id number] [facility] [place] [address] Dec, [facility] [address] [id number] [facility] [place] [address] Nov, [facility] [address] [id number] [address] [place] [address], [place] [id number] Nov, [facility] [address] [id number] [address] [place] [address], [place] [address] Nov, [facility] [address] [id number] [address] [place] [address], [place] [address] Nov, [facility] [address] [id number] [address] [place] [address], [place] [id number] Nov, [facility] [address] [id number] [address] [place] [address], [place] [address] Nov, [facility] [address] [id number] [address] [place] [address], [place] [address] Nov, [facility] [address] [id number] [address] [place] [address], [place] [address] Oct, [facility] [address] [id number] [address] [place] [address], [place] [id number] Oct, [facility] [address] [id number] [address] [place] [address], [place] [id number] Oct, [facility] [address] [id number] [address] [place] [address], [place] [address] Oct, [facility] [address] [id number] [address] [place] [address], [place] [address] Oct, [facility] [address] [id number] [address] [place] [address], [place] [address] Oct, [facility] [address] [id number] [address] [place] [address], [place] [address] Oct, [facility] [address] [id number] [facility] [place] [address] Sep, [facility] [address] [id number] [address] [place] [address], [place] [address] Sep, [facility] [address] [id number] [address] [place] [address], [place] [address] Sep, [facility] [address] [id number] [address] [place] [address], [place] [address] Sep, [facility] [address] [id number] [address] [place] [address], [place] [address] Sep, [facility] [address] [id number] [address] [place] [address], [place] [address] Jul, [facility] [address] [id number] [address] [place] [address], [place] [address] Jul, [facility] [address] [id number] [address] [place] [address], [place] [address] Jul, [facility] [address] [id number] [address] [place] [address], [place] [address] Jul, [facility] [address] [id number] [address] [place] [address], [place] [address] Jul, [facility] [address] [id number] [address] [place] [address], [place] [address] Jul, [facility] [address] [id number] [address] [place] [address], [place] [address] Jul, [facility] [address] [id number] [address] [place] [address], [place] [address] Jul, [facility] [address] [id number] [address] [place] [address], [place] [address] Jul, [facility] [address] [id number] [address] [place] [address], [place] [address] Jul, [facility] [address] [id number] [facility] [place] [address] Jul, [facility] [address] [id number] [address] [place] [address], [place] [address] Jul, [facility] [address] [id number] [facility] [place] [address] Jun, [facility] [address] [id number] [address] [place] [address], [place] [address] Jun, [facility] [address] [id number] [address] [place] [address], [place] [address] Jun, [facility] [address] [id number] [address] [place] [address], [place] [address] Jun, [facility] [address] [id number] [address] [place] [address], [place] [address] Jun, [facility] [address] [id number] [address] [place] [address], [place] [address] Jun, [facility] [address] [id number] [address] [place] [address], [place] [address] Jun, [facility] [address] [id number] [address] [place] [address], [place] [address] Jun, [facility] [address] [id number] [address] [place] [address], [place] [address] May, [facility] [address] [id number] [address] [place] [address], [place] [address] May, [facility] [address] [id number] [address] [place] [address], [place] [address] May, [facility] [address] [id number] [address] [place] [address], [place] [address] May, [facility] [address] [id number] [address] [place] [address], [place] [address] May, [facility] [address] [id number] [address] [place] [address], [place] [address] May, [facility] [address] [id number] [address] [place] [address], [place] [address] May, [facility] [address] [id number] [address] [place] [address], [place] [address] May, [facility] [address] [id number] [address] [place] [address], [place] [address] Apr, [facility] [address] [id number] [address] [place] [address], [place] [address] Apr, [facility] [address] [id number] [address] [place] [address], [place] [address] Apr, [facility] [address] [id number] [address] [place] [address], [place] [address] Apr, [facility] [address] [id number] [address] [place] [address], [place] [address] Mar, [facility] [address] [id number] [address] [place] [address], [place] [address] Mar, [facility] [address] [id number] [address] [place] [address], [place] [address] Mar, [facility] [address] [id number] [address] [place] [address], [place] [address] Feb, [facility] [address] [id number] [address] [place] [address], [place] [address] Feb, [facility] [address] [id number] [address] [place] [address], [place] [address] Feb, [facility] [address] [id number] [address] [place] [address], [place] [address] Feb, [facility] [address] [id number] [address] [place] [address], [place] [address] Feb, [facility] [address] [id number] [address] [place] [address], [place] [address] Feb, [facility] [address] [id number] [address] [place] [address], [place] [address] Jan, [facility] [address] [id number] [address] [place] [address], [place] [address] Jan, [facility] [address] [id number] [address] [place] [address], [place] [address] Jan, [facility] [address] [id number] [address] [place] [address], [place] [address] Jan, [facility] [address] [id number] [address] [place] [address], [place] [address] Jan, [facility] [address] [id number] [address] [place] [address], [place] [address] Jan, [facility] [address] [id number] [address] [place] [address], [place] [address] Jan, [facility] [address] [id number] [address] [place] [address], [place] [address] Dec, [facility] [address] [id number] [address] [place] [address], [place] [address] 16 Dec, 2012 [facility] [address] [id number] [address] [place] [address], [place] [address] 10 Dec, 2012 [facility] [address] [id number] [address] [place] [address], [place] [address] 05 Dec, 2012 [facility] [address] [id number] [address] [place] [address], [place] [address] Nov, [facility] [address] [id number] [address] [place] [address], [place] [address] Nov, [facility] [address] [id number] [address] [place] [address], [place] [address] Nov, [facility] [address] [id number] [address] [place] [address], [place] [address] Nov, [facility] [address] [id number] [address] [place] [address], [place] [address] Nov, [facility] [address] [id number] [address] [place] [address], [place] [address] Nov, [facility] [address] [id number] [address] [place] [address], [place] [address] Nov, [facility] [address] [id number] [address] [place] [address], [place] [address] Oct, [facility] [address] [id number] [address] [place] [address], [place] [address] Oct, [facility] [address] [id number] [address] [place] [address], [place] [address] Oct, [facility] [address] [id number] [address] [place] [address], [place] [address] Oct, [facility] [address] [id number] [address] [place] [address], [place] [address] Oct, [facility] [address] [id number] [address] [place] [address], [place] [address] Oct, [facility] [address] [id number] [address] [place] [address], [place] [address] Oct, [facility] [address] [id number] [address] [place] [address], [place] [address] Oct, [facility] [address] [id number] [address] [place] [address], [place] [address] Sep, Suleiman PEREZ [facility] [id number] [place] [id number] August, [facility] [address] [id number] [address] [place] [address], [place] [address] August, [facility] [address] [id number] [address] [place] [address], [place] [address] Jul, [facility] [address] [id number] [address] [place] [address], [place] [address] Jul, [facility] [address] [id number] [address] [place] [address], [place] [address] 25 Jul, 2012 [facility] [address] [id number] [address] [place] [address], [place] [address] 22 Jul, 2012 [facility] [address] [id number] [address] [place] [address], [place] [address] 18 Jul, 2012 [facility] [address] [id number] [address] [place] [address], [place] [address] 17 Jul, 2012 [facility] [address] [id number] [address] [place] [address], [place] [address] 16 Jul, 2012 [facility] [address] [id number] [address] [place] [address], [place] [address] 21 Jun, 2012 [facility] [address] [id number] [address] [place] [address], [place] [address] 18 Jun, 2012 [facility] [address] [id number] [address] [place] [address], [place] [address] Jun, [facility] [address] [id number] [address] [place] [address], [place] [address] 04 Jun, 2012 [facility] [address] [id number] [address] [place] [address], [place] [address] 04 Jun, 2012 [facility] [address] [id number] [address] [place] [address], [place] [address] May, [facility] [address] [id number] [address] [place] [address], [place] [address] 18 May, 2012 [facility] [address] [id number] [address] [place] [address], [place] [address] 04 May, 2012 [facility] [address] [id number] [address] [place] [address], [place] [address] 15 Apr, 2012 [facility] [address] [id number] [address] [place] [address], [place] [address] 14 Apr, 2012 [facility] [address] [id number] [address] [place] [address], [place] [address] 07 Apr, 2012 [facility] [address] [id number] [address] [place] [address], [place] [address] Mar, [facility] [address] [id number] [address] [place] [address], [place] [address] Mar, [facility] [address] [id number] [address] [place] [address], [place] [address] Mar, [facility] [address] [id number] [address] [place] [address], [place] [address] Mar, [facility] [address] [id number] [address] [place] [address], [place] [address] Mar, [facility] [address] [id number] [address] [place] [address], [place] [address] Mar, [facility] [address] [id number] [address] [place] [address], [place] [address] Feb, [facility] [address] [id number] [address] [place] [address], [place] [address] Feb, [facility] [address] [id number] [address] [place] [address], [place] [address] Jan, [facility] [address] [id number] [address] [place] [address], [place] [address] Jan, [facility] [address] [id number] [address] [place] [address], [place] [address] Dec, [facility] [address] [id number] [address] [place] [address], [place] [address] Nov, [facility] [address] [id number] [address] [place] [address], [place] [address] Nov, [facility] [address] [id number] [address] [place] [address], [place] [address] Nov, [facility] [address] [id number] [address] [place] [address], [place] [address] Nov, [facility] [address] [id number] [address] [place] [address], [place] [address] Oct, [facility] [address] [id number] [address] [place] [address], [place] [address] Oct, [facility] [address] [id number] [address] [place] [address], [place] [address] Oct, [facility] [address] [id number] [address] [place] [address], [place] [address] Sep, [facility] [address] [id number] [address] [place] [address], [place] [address] Sep, [facility] [address] [id number] [address] [place] [address], [place] [address] Sep, [facility] [address] [id number] [address] [place] [address], [place] [address] August, [facility] [address] [id number] [address] [place] [address], [place] [address] August, [facility] [address] [id number] [address] [place] [address], [place] [address] Jul, [facility] [address] [id number] [address] [place] [address], [place] [address] 24 Jul, 2011 [facility] [address] [id number] [address] [place] [address], [place] [address] Jul, [facility] [address] [id number] [address] [place] [address], [place] [address] Jul, [facility] [address] [id number] [address] [place] [address], [place] [address] Jun, [facility] [address] [id number] [address] [place] [address], [place] [address] May, [facility] [address] [id number] [address] [place] [address], [place] [address] Apr, [facility] [address] [id number] [address] [place] [address], [place] [address] Apr, [facility] [address] [id number] [address] [place] [address], [place] [address] Apr, [facility] [address] [id number] [address] [place] [address], [place] [address] Apr, [facility] [address] [id number] [address] [place] [address], [place] [address] Apr, [facility] [address] [id number] [address] [place] [address], [place] [address] Apr, [facility] [address] [id number] [address] [place] [address], [place] [address] Mar, [facility] [address] [id number] [address] [place] [address], [place] [address] Mar, [facility] [address] [id number] [address] [place] [address], [place] [address] Feb, [facility] [address] [id number] [address] [place] [address], [place] [address] Feb, [facility] [address] [id number] [address] [place] [address], [place] [address] Feb, [facility] [address] [id number] [address] [place] [address], [place] [address] Feb, [facility] [address] [id number] [address] [place] [address], [place] [address] Jan, [facility] [address] [id number] [address] [place] [address], [place] [address] Jan, [facility] [address] [id number] [address] [place] [address], [place] [address] Jan, [facility] [address] [id number] [address] [place] [address], [place] [address] Jan, [facility] [address] [id number] [address] [place] [address], [place] [address] Nov, [facility] [address] [id number] [address] [place] [address], [place] [address] Mar, [facility] [address] [id number] [address] [place] [address] 02 Mar, 2010 [facility] [address] [id number] [address] [place] [id number] 30 Feb, 2010 [facility] [address] [id number] [address] [place] [address] 15 Feb, 2010 [facility] [address] [id number] [address] [place] [phone] Jan, [facility] [address] [id number] [address] [place] [phone] Jan, [facility] [address] [id number] [address] [place] [id number] Sep, [facility] [address] [id number] [address] [place] [id number] 16 May, 2009 [facility] [address] [id number] [address] [place] [address] Apr, [facility] [address] [id number] [address] [place] [phone] Mar, [facility] [address] [id number] [address] [place] [address] 15 Feb, 2009 [facility] [address] [id number] [address] [place] [id number] 10 Feb, 2009 [facility] [address] [id number] [address] [place] [id number] 10 Feb, 2009 [facility] [address] [id number] [address] [place] [id number] 22 Jan, 2009 [facility] [address] [id number] [address] [place] [id number] 13 Jan, 2009 [facility] [address] [id number] [address] [place] [id number] 13 Jan, 2009 [facility] [address] [id number] [address] [place] [phone] Jan, [facility] [address] [facility] [id number] [address] [address] August, IMMUNIZATIONS No Known Immunizations SOCIAL HISTORY Never Assessed REASON FOR VISIT EMR-[facility] PLAN OF CARE VITAL SIGNS MEDICATIONS Unknown [...] age 6 Hospitalization History surgery Hospitalization History [facility], [facility] treatment few times for BH
[2019-09-29 10:55] VITALS: BP 128/70
--- OUTSIDE RECORDS SUMMARY | 2019-09-29 10:55 | XMS REPORT ---
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 Active 29739491 Problem Open-angle glaucoma of both eyes, unspecified glaucoma stage, unspecified open-angle glaucoma type H40.10X0 Acti ve 74451026 Problem Adjustment disorder, unspecified type F43.20 Active 75001004 Problem Obstructive sleep apnea G47.33 Active 03854457 Problem Hypertensive retinopathy of both eyes H35.033 Active 8670420 Problem Type 2 diabetes mellitus with complication E11.8 Active 61219634 Problem Essential hypertension I10 Active 87730717 Problem Diabetes E11.9 Active 88856010 Problem Bipolar disorder, in partial remission, most rec ent episode manic F31.73 Active 40309157 Problem Intermittent explosive disorder in adult F63.81 Active 15004218 Problem Other diabetic neurological complication associated with type 2 diabetes mellitus E11.49 Active 903409825 Problem Depression F32.9 Active 95757507 Problem Neuropathy G62.9 Active 102752343 Problem Intermittent explosive disorder F63.81 Active 08429694 Problem Bipolar disorder, unspecified F31.9 Active 54975665 Problem Mild intellectual disability F70 A ctive 07100591 Problem Reactive airway disease, mild intermittent, uncomplicated J45.20 Active 328381950 Problem Gastroesophageal reflux disease without esophagitis K21.9 Active 115119549 ALLERGIES No Information ENCOUNTERS Encounter Location Date Diagnosis [facility] [address] [facility] [id number] [address] [place] [id number] Oct, [facility] [address] [facility] [id number] [address] [place] [phone] August, [facility] [address] [facility] [id number] [address] [place] [address] [id number] August, [facility] [address] [place] [id number] Jul, Onychomycosis B35.1 ; Other diabetic neurological complication associated with type 2 diabetes mellitus E11.49 and Tinea pedis of both feet B35.3 [facility] [address] [place] [id number] [address] [place] [address] [phone] Jul, Caries K02.9 [facility] [address] [facility] [id number] [address] [place] [id number] Jul, Type 2 diabetes mellitus wit h complication E11.8 ; Tobacco abuse Z72.0 and Bipolar disorder, unspecified F31.9 [facility] [address] [place] [id number] [address] [place] [id number] Jun, [facility] [address] [place] [id number] [address] [place] [address] [phone] Jun, Dental examination Z01.20 an d Oral health maintenance status requiring routine preventive dental care K08.9 [facility] [address] [place] [address] May, Bilateral impacted cerumen H 61.23 [facility] [address] [place] [id number] [address] [place] [id number] Apr, Bipolar disorder, unspecifie d F31.9 ; Intermittent explosive disorder in adult F63.81 ; Type 2 diabetes mellitus with complication E11.8 ; Tobacco abuse Z72.0 and Colon cancer screening Z12.11 [facility] [address] [facility] [id number] [address] [place] [phone] Apr, Onychomycosis B35.1 and Othe r diabetic neurological complication associated with type 2 diabetes mellitus E11.49 [facility] [address] [place] [id number] [address] [place] [phone] Apr, Intermittent explosive disor salvatore in adult F63.81 ; Bipolar disorder, unspecified F31.9 and Mild intellectual disability F70 [facility] [address] [facility] [id number] [address] [place] [phone] 03 Mar, 2018 Diabetes E11.9 [facility] [address] [facility] [id number] [address] [place] [id number] Jan, Encounter for immunization Z 23 [facility] [address] [facility] [id number] [address] [place] [id number] 12 Jan, 2018 Tinea pedis of both feet B35 .3 ; Other diabetic neurological complication associated with type 2 diabetes mellitus E11.49 and Onychomycosis B35.1 [facility] [address] [facility] [id number] [address] [place] [phone] Nov, Type 2 diabetes mellitus wit h complication E11.8 [facility] [address] [place] [id number] [address] [place] [id number] Nov, [facility] [address] [place] [id number] [address] [place] [phone] Oct, Intermittent explosive disor salvatore in adult F63.81 ; Bipolar disorder, unspecified F31.9 and Mild intellectual disability F70 [facility] [address] [facility] [id number] [address] [place] [id number] Oct, [facility] [address] [place] [id number] [address] [place] [address] [phone] Oct, Dental examination Z01.20 [facility] [address] [facility] [id number] [address] [place] [phone] Oct, Onychomycosis B35.1 and Othe r diabetic neurological complication associated with type 2 diabetes mellitus E11.49 [facility] [address] [facility] [id number] [address] [place] [id number] Sep, Type 2 diabetes mellitus wit h complication E11.8 and Colon cancer screening Z12.11 [facility] [address] [facility] [id number] [address] [place] [id number] 18 Sep, 2017 Type 2 diabetes mellitus wit h complication E11.8 ; Colon cancer screening Z12.11 and Neuropathy G62.9 [facility] [address] [facility] [id number] [address] [place] [phone] August, Diabetes E11.9 [facility] [address] [facility] [id number] [address] [place] [address] [phone] Jul, Dental examination Z01.20 [facility] [address] [facility] [id number] [address] [place] [address] May, Mild intellectual disability F70 [facility] [address] [facility] [id number] [address] [place] [address] May, Mild intellectual disability F70 ; High risk medication use Z79.899 ; Intermittent explosive disorder in adult F63.81 and Bipolar disorder, unspecified F31.9 [facility] [address] [address] May, [facility] [address] [place] [id number] [address] [place] [id number] May, [facility] [address] [place] [id number] [address] [place] [address] Apr, Type 2 diabetes mellitus wit h complication E11.8 ; Mild intellectual disability F70 ; Gastroesophageal reflux disease without esophagitis K21.9 ; Reactive airway disease, mild intermittent, uncomplicated J45.20 and Tobacco abuse Z72.0 [facility] [address] [place] [id number] [address] [place] [phone] Apr, High risk medication use Z79 .899 ; Mild intellectual disability F70 ; Intermittent explosive disorder in adult F63.81 and Bipolar disorder, unspecified F31.9 [facility] [address] [place] [address] [id number] Mar, Encounter for dental exam an d cleaning w/o abnormal findings Z01.20 [facility] [address] [facility] [id number] [address] [place] [address] [id number] Mar, Dental examination Z01.20 [facility] [address] [id number] [address] [place] [id number] 12 Jan, 2017 [facility] [address] [id number] [address] [place] [id number] Jan, [facility] [address] [id number] [address] [place] [phone] 10 Jan, 2017 Mild intellectual disability F70 ; Bipolar disorder, unspecified F31.9 and Intermittent explosive disorder in adult F63.81 [facility] [address] [id number] [address] [place] [id number] 02 Jan, 2017 Diabetes E11.9 [facility] [address] [id number] [address] [place] [address] [id number] 13 Dec, 2016 Encounter for dental examina tion and cleaning without abnormal findings Z01.20 [facility] [address] [id number] [address] [place] [id number] 12 Dec, 2016 Bipolar disorder, unspecifie d F31.9 ; Intermittent explosive disorder in adult F63.81 and Mild intellectual disability F70 [facility] [address] [id number] [address] [place] [id number] Nov, Diabetes E11.9 [facility] [address] [id number] [address] [place] [phone] Nov, [facility] [address] [id number] [address] [place] [id number] Nov, Diabetes E11.9 and Colon can cer screening Z12.[id number] [place] [address] [id number] 21 Sep, 2016 Dental examination Z01.20 [facility] [address] [id number] [address] [place] [address] [id number] 21 Sep, 2016 Encounter for dental examina tion and cleaning without abnormal findings Z01.20 [facility] [address] [id number] [address] [place] [id number] 13 Sep, 2016 Bipolar disorder, unspecifie d F31.9 [facility] [address] [id number] [address] [place] [id number] 12 Sep, 2016 Bipolar disorder, unspecifie d F31.9 [facility] [address] [id number] [address] [place] [phone] Jul, [facility] [address] [facility] [id number] [address] [place] [id number] 13 Jul, 2016 Type 2 diabetes mellitus wit h complication E11.8 [place] [id number] [facility] [id number] [id number] 15 Jun, 2016 Dental examination Z01.20 [facility] [address] [id number] [address] [place] [address] [phone] Jun, Encounter for dental examina tion and cleaning without abnormal findings Z01.20 [place] [id number] [facility] [id number] [address] [place] [phone] Apr, Sports physical Z02.5 [facility] [address] [facility] [id number] [address] [place] [id number] 14 Mar, 2016 Bipolar disorder, in partial remission, most recent episode manic F31.73 and Intermittent explosive disorder in adult F63.81 [facility] [address] [facility] [id number] [address] [place] [phone] 08 Mar, 2016 [facility] [address] [facility] [id number] [address] [place] [id number] 06 Mar, 2016 Diabetes E11.9 [facility] [address] [id number] [address] [place] [address] [phone] Feb, Encounter for dental examina tion and cleaning without abnormal findings Z01.20 [facility] [address] [id number] [address] [place] [id number] 22 Dec, 2015 Nocturnal hypoxemia G47.34 a nd Encounter for immunization Z23 [facility] [address] [id number] [address] [place] [id number] 15 Dec, 2015 [facility] [address] [facility] [id number] [address] [place] [id number] Dec, [facility] [address] [facility] [id number] [address] [place] [id number] Dec, Bipolar disorder, unspecifie d F31.9 [facility] [address] [id number] [address] [place] [address] [phone] Oct, Encounter for dental examina tion and cleaning without abnormal findings Z01.20 [facility] [address] [id number] [id number] 13 Oct, 2015 Dental examination Z01.20 [facility] [address] [facility] [id number] [address] [place] [phone] 07 Oct, 2015 Diabetes E11.9 [facility] [address] [place] [id number] [place] [phone] Oct, Diabetes E11.9 ; Reactive ai rway disease, mild intermittent, uncomplicated J45.20 and Tobacco abuse Z72.0 [facility] [address] [place] [id number] Sep, Bipolar disorder, unspecifie d F31.9 and Depression F32.9 [facility] [address] [place] [id number] [address] [place] [id number] Sep, [facility] [address] [id number] August, Tinea pedis of both feet B35 .3 and DM w/o complication type II, uncontrolled E11.65 [facility] [address] [facility] [id number] [address] [place] [id number] Jul, [facility] [address] [id number] Jul, [facility] [address] [facility] [id number] [address] [place] [id number] Jul, Obstructive sleep apnea G47. 33 [facility] [address] [place] [id number] [address] [place] [phone] Jun, Diabetes E11.9 [facility] [address] [id number] Jun, [facility] [address] [id number] Jun, [place] [address] [phone] Jun, Bipolar disorder, unspecifie d F31.9 and Mental retardation F79 [place] [address] [address] Apr, [place] [address] [address] Feb, Diabetes E11.9 ; Encounter f or immunization Z23 ; Cough R05 and Nicotine abuse Z72.0 [place] [address] [address] Jan, Bipolar disorder, unspecifie d F31.9 and Diabetes mellitus without mention of complication, type II or unspecified type, uncontrolled 250.02 [place] [address] [phone] Jan, [place] [address] [address] Dec, Reactive airway disease 493. 90 and Enuresis 788.30 [place] [address] [address] Dec, [place] [address] [address] Nov, [place] [address] [address] Nov, [place] [address] [address] Nov, Annual physical exam V70.0 ; Urinary incontinence 788.30 ; Diabetes 250.00 and Hypertension 401.9 [facility] [address] [id number] [address] [place] [phone] Oct, Diabetes mellitus without me ntion of complication, type II or unspecified type, uncontrolled 250.02 [facility] [address] [id number] [address] [place] [phone] Oct, Diabetes mellitus without me ntion of complication, type II or unspecified type, uncontrolled 250.02 [facility] [address] [id number] [address] [place] [id number] Oct, Diabetes mellitus without me ntion of complication, type II or unspecified type, uncontrolled 250.02 [facility] [address] [id number] [address] [place] [id number] Oct, [facility] [address] [id number] [address] [place] [phone] Oct, [facility] [address] [id number] [address] [place] [phone] Oct, Bipolar disorder, unspecifie d 296.80 [facility] [id number] [place] [address] [id number] Sep, Dental examination V72.2 [facility] [address] [id number] [address] [place] [phone] August, [facility] [id number] [place] [address] [id number] August, Dental examination V72.2 [facility] [address] [id number] [address] [place] [id number] August, [facility] [address] [id number] [address] [place] [phone] Jul, [facility] [address] [id number] [address] [place] [id number] Jul, [facility] [address] [facility] [id number] [address] [place] [phone] Jun, [facility] [address] [id number] [address] [place] [address], [place] [address] 17 Jun, 2014 [facility] [address] [id number] [address] [place] [address], [place] [address] 17 Jun, 2014 [facility] [address] [id number] [address] [place] [address], [place] [address] 17 Jun, 2014 [facility] [address] [id number] [address] [place] [address], [place] [address] 23 May, 2014 [facility] [address] [id number] [address] [place] [address], [place] [address] 23 May, 2014 [facility] [address] [id number] [address] [place] [address], [place] [address] 16 May, 2014 [facility] [address] [id number] [address] [place] [address], [place] [address] 16 May, 2014 [facility] [address] [id number] [address] [place] [address], [place] [address] 16 May, 2014 [facility] [address] [id number] [address] [place] [address], [place] [address] 16 May, 2014 [facility] [address] [id number] [address] [place] [address], [place] [address] 16 May, 2014 [facility] [address] [id number] [address] [place] [address], [place] [address] 16 May, 2014 [facility] [address] [id number] [address] [place] [address], [place] [address] 16 May, 2014 [facility] [address] [id number] [address] [place] [address], [place] [address] 16 May, 2014 [facility] [address] [id number] [address] [place] [address], [place] [address] 16 May, 2014 [facility] [address] [id number] [address] [place] [address], [place] [address] 16 May, 2014 [facility] [address] [id number] [address] [place] [address], [place] [address] May, [facility] [address] [id number] [address] [place] [address], [place] [address] May, [facility] [address] [id number] [address] [place] [address], [place] [address] May, [facility] [address] [id number] [address] [place] [address], [place] [address] Apr, [facility] [address] [id number] [address] [place] [address], [place] [address] Apr, [facility] [address] [id number] [address] [place] [address], [place] [address] Apr, [facility] [address] [id number] [address] [place] [address], [place] [address] Apr, [facility] [address] [id number] [address] [place] [address], [place] [address] Apr, [facility] [address] [id number] [address] [place] [address], [place] [address] Apr, [facility] [address] [id number] [address] [place] [address], [place] [address] Apr, [facility] [address] [id number] [address] [place] [address], [place] [address] Apr, [facility] [address] [id number] [address] [place] [address], [place] [address] Apr, [facility] [address] [id number] [address] [place] [address], [place] [address] Apr, [facility] [address] [id number] [address] [place] [address], [place] [address] Apr, [facility] [address] [id number] [address] [place] [address], [place] [address] Apr, [facility] [address] [id number] [address] [place] [address], [place] [address] Mar, [facility] [address] [id number] [address] [place] [address], [place] [address] Mar, [facility] [address] [id number] [address] [place] [address], [place] [address] Mar, [facility] [address] [id number] [address] [place] [address], [place] [address] Mar, [facility] [address] [id number] [address] [place] [address], [place] [address] Mar, [facility] [address] [id number] [address] [place] [address], [place] [address] Mar, [facility] [address] [id number] [address] [place] [address], [place] [address] Feb, [facility] [address] [id number] [address] [place] [address], [place] [address] Feb, [facility] [address] [id number] [address] [place] [address], [place] [address] Feb, [facility] [address] [id number] [address] [place] [address], [place] [address] Feb, [facility] [address] [id number] [address] [place] [address], [place] [address] 14 Jan, 2014 [facility] [address] [id number] [address] [place] [address], [place] [address] 14 Jan, 2014 [facility] [address] [id number] [address] [place] [address], [place] [address] 14 Jan, 2014 [facility] [address] [id number] [address] [place] [address], [place] [address] 14 Jan, 2014 [facility] [address] [id number] [address] [place] [address], [place] [address] 22 Dec, 2013 [facility] [address] [id number] [address] [place] [address], [place] [address] 22 Dec, 2013 [facility] [address] [id number] [facility] [address] 15 Dec, 2013 [facility] [address] [id number] [address] [place] [address], [place] [address] Dec, [facility] [address] [id number] [address] [place] [address], [place] [address] Nov, [facility] [address] [id number] [address] [place] [address], [place] [address] Nov, [facility] [address] [id number] [address] [place] [address], [place] [address] Nov, [facility] [address] [id number] [address] [place] [address], [place] [address] Nov, [facility] [address] [id number] [address] [place] [address], [place] [address] Nov, [facility] [address] [id number] [address] [place] [address], [place] [address] Nov, [facility] [address] [id number] [address] [place] [address], [place] [address] Nov, [facility] [address] [id number] [address] [place] [address], [place] [address] Oct, [facility] [address] [id number] [address] [place] [address], [place] [address] Oct, [facility] [facility] [address] [id number] [address] [place] [address], [place] [address] Oct, [facility] [address] [id number] [address] [place] [address], [place] [address] Oct, [facility] [address] [id number] [address] [place] [address], [place] [address] Oct, [facility] [address] [id number] [address] [place] [address], [place] [address] Oct, [facility] [address] [id number] [address] [place] [address], [place] [address] Oct, [facility] [address] [id number] [address] [place] [address], [place] [address] Sep, [facility] [address] [id number] [address] [place] [address], [place] [address] Sep, [facility] [address] [id number] [address] [place] [address], [place] [address] Sep, [facility] [address] [id number] [address] [place] [address], [place] [address] Sep, [facility] [address] [id number] [address] [place] [address], [place] [address] Sep, [facility] [address] [id number] [address] [place] [address], [place] [address] Jul, [facility] [address] [id number] [address] [place] [address], [place] [address] Jul, [facility] [address] [id number] [address] [place] [address], [place] [address] Jul, [facility] [address] [id number] [address] [place] [address], [place] [address] Jul, [facility] [address] [id number] [address] [place] [address], [place] [address] Jul, [facility] [address] [id number] [address] [place] [address], [place] [address] Jul, [facility] [address] [id number] [address] [place] [address], [place] [address] Jul, [facility] [address] [id number] [address] [place] [address], [place] [address] Jul, [facility] [address] [id number] [address] [place] [address], [place] [address] Jul, [facility] [address] [id number] [address] [place] [address], [place] [address] Jul, [facility] [address] [id number] [address] [place] [address], [place] [address] Jul, [facility] [address] [id number] [address] [place] [address], [place] [address] Jul, [facility] [address] [id number] [address] [place] [address], [place] [address] Jun, [facility] [address] [id number] [address] [place] [address], [place] [address] Jun, [facility] [address] [id number] [address] [place] [address], [place] [address] Jun, [facility] [address] [id number] [address] [place] [address], [place] [address] Jun, [facility] [address] [id number] [address] [place] [address], [place] [address] Jun, [facility] [address] [id number] [address] [place] [address], [place] [address] Jun, [facility] [address] [id number] [address] [place] [address], [place] [address] Jun, [facility] [address] [id number] [address] [place] [address], [place] [address] Jun, [facility] [address] [id number] [address] [place] [address], [place] [address] May, [facility] [address] [id number] [address] [place] [address], [place] [address] May, [facility] [address] [id number] [address] [place] [address], [place] [address] May, [facility] [address] [id number] [address] [place] [address], [place] [address] May, [facility] [address] [id number] [address] [place] [address], [place] [address] May, [facility] [address] [id number] [address] [place] [address], [place] [address] May, [facility] [address] [id number] [address] [place] [address], [place] [address] May, [facility] [address] [id number] [address] [place] [address], [place] [address] May, [facility] [address] [id number] [address] [place] [address], [place] [address] Apr, [facility] [address] [id number] [address] [place] [address], [place] [address] Apr, [facility] [address] [id number] [address] [place] [address], [place] [address] Apr, [facility] [address] [id number] [address] [place] [address], [place] [address] Apr, [facility] [address] [id number] [address] [place] [address], [place] [address] Mar, [facility] [address] [id number] [address] [place] [address], [place] [address] Mar, [facility] [address] [id number] [address] [place] [address], [place] [address] Mar, [facility] [address] [id number] [address] [place] [address], [place] [address] Feb, [facility] [address] [id number] [address] [place] [address], [place] [address] Feb, [facility] [address] [id number] [address] [place] [address], [place] [address] Feb, [facility] [address] [id number] [address] [place] [address], [place] [address] Feb, [facility] [address] [id number] [address] [place] [address], [place] [address] Feb, [facility] [address] [id number] [address] [place] [address], [place] [address] Feb, [facility] [address] [id number] [address] [place] [address], [place] [address] Jan, [facility] [address] [id number] [address] [place] [address], [place] [address] Jan, [facility] [address] [id number] [address] [place] [address], [place] [address] Jan, [facility] [address] [id number] [address] [place] [address], [place] [address] Jan, [facility] [address] [id number] [address] [place] [address], [place] [address] Jan, [facility] [address] [id number] [address] [place] [address], [place] [address] Jan, [facility] [address] [id number] [address] [place] [address], [place] [address] Jan, [facility] [address] [id number] [address] [place] [address], [place] [address] Dec, [facility] [address] [id number] [address] [place] [address], [place] [address] 16 Dec, 2012 [facility] [address] [id number] [address] [place] [address], [place] [address] 10 Dec, 2012 [facility] [address] [id number] [address] [place] [address], [place] [address] 05 Dec, 2012 [facility] [address] [id number] [address] [place] [address], [place] [address] Nov, [facility] [address] [id number] [address] [place] [address], [place] [address] Nov, [facility] [address] [id number] [address] [place] [address], [place] [address] Nov, [facility] [address] [id number] [address] [place] [address], [place] [address] Nov, [facility] [address] [id number] [address] [place] [address], [place] [address] Nov, [facility] [address] [id number] [address] [place] [address], [place] [address] Nov, [facility] [address] [id number] [address] [place] [address], [place] [address] Nov, [facility] [address] [id number] [address] [place] [address], [place] [address] Oct, [facility] [address] [id number] [address] [place] [address], [place] [address] Oct, [facility] [address] [id number] [address] [place] [address], [place] [address] Oct, [facility] [address] [id number] [address] [place] [address], [place] [address] Oct, [facility] [address] [id number] [address] [place] [address], [place] [address] Oct, [facility] [address] [id number] [address] [place] [address], [place] [address] Oct, [facility] [address] [id number] [address] [place] [address], [place] [address] Oct, [facility] [address] [id number] [address] [place] [address], [place] [address] Oct, [facility] [address] [id number] [address] [place] [address], [place] [address] Sep, [facility] [id number] [place] [address] [id number] August, [facility] [address] [id number] [address] [place] [address], [place] [address] August, [facility] [address] [id number] [address] [place] [address], [place] [address] Jul, [facility] [address] [id number] [address] [place] [address], [place] [address] Jul, [facility] [address] [id number] [address] [place] [address], [place] [address] Jul, 2012 [facility] [address] [id number] [address] [place] [address], [place] [address] 22 Jul, 2012 [facility] [address] [id number] [address] [place] [address], [place] [address] 18 Jul, 2012 [facility] [address] [id number] [address] [place] [address], [place] [address] 17 Jul, 2012 [facility] [address] [id number] [address] [place] [address], [place] [address] 16 Jul, 2012 [facility] [address] [id number] [address] [place] [address], [place] [address] Jun, [facility] [address] [id number] [address] [place] [address], [place] [address] Jun, [facility] [address] [id number] [address] [place] [address], [place] [address] Jun, [facility] [address] [id number] [address] [place] [address], [place] [address] Jun, [facility] [address] [id number] [address] [place] [address], [place] [address] Jun, [facility] [address] [id number] [address] [place] [address], [place] [address] May, [facility] [address] [id number] [address] [place] [address], [place] [address] 18 May, 2012 [facility] [address] [id number] [address] [place] [address], [place] [address] May, [facility] [address] [id number] [address] [place] [address], [place] [address] 15 Apr, 2012 [facility] [address] [id number] [address] [place] [address], [place] [address] 14 Apr, 2012 [facility] [address] [id number] [address] [place] [address], [place] [address] 07 Apr, 2012 [facility] [address] [id number] [address] [place] [address], [place] [address] 31 Mar, 2012 [facility] [address] [id number] [address] [place] [address], [place] [address] 31 Mar, 2012 [facility] [address] [id number] [address] [place] [address], [place] [address] Mar, [facility] [address] [id number] [address] [place] [address], [place] [address] Mar, [facility] [address] [id number] [address] [place] [address], [place] [address] Mar, [facility] [address] [id number] [address] [place] [address], [place] [address] Mar, [facility] [address] [id number] [address] [place] [address], [place] [address] Feb, [facility] [address] [id number] [address] [place] [address], [place] [address] Feb, [facility] [address] [id number] [address] [place] [address], [place] [address] Jan, [facility] [address] [id number] [address] [place] [address], [place] [address] Jan, [facility] [address] [id number] [address] [place] [address], [place] [address] Dec, [facility] [address] [id number] [address] [place] [address], [place] [address] Nov, [facility] [address] [id number] [address] [place] [address], [place] [address] Nov, [facility] [address] [id number] [address] [place] [address], [place] [address] Nov, [facility] [address] [id number] [address] [place] [address], [place] [address] Nov, [facility] [address] [id number] [address] [place] [address], [place] [address] Oct, [facility] [address] [id number] [address] [place] [address], [place] [address] Oct, [facility] [address] [id number] [address] [place] [address], [place] [address] Oct, [facility] [address] [id number] [address] [place] [address], [place] [address] Sep, [facility] [address] [id number] [address] [place] [address], [place] [address] Sep, [facility] [address] [id number] [address] [place] [address], [place] [address] Sep, [facility] [address] [id number] [address] [place] [address], [place] [address] August, [facility] [address] [id number] [address] [place] [address], [place] [address] August, [facility] [address] [id number] [address] [place] [address], [place] [address] Jul, [facility] [address] [id number] [address] [place] [address], [place] [address] Jul, [facility] [address] [id number] [address] [place] [address], [place] [address] Jul, [facility] [address] [id number] [address] [place] [address], [place] [address] Jul, [facility] [address] [id number] [address] [place] [address], [place] [address] Jun, [facility] [address] [id number] [address] [place] [address], [place] [address] May, [facility] [address] [id number] [address] [place] [address], [place] [address] Apr, [facility] [address] [id number] [address] [place] [address], [place] [address] Apr, [facility] [address] [id number] [address] [place] [address], [place] [address] Apr, [facility] [address] [id number] [address] [place] [address], [place] [address] Apr, [facility] [address] [id number] [address] [place] [address], [place] [address] Apr, [facility] [address] [id number] [address] [place] [address], [place] [address] Apr, [facility] [address] [id number] [address] [place] [address], [place] [address] Mar, [facility] [address] [id number] [address] [place] [address], [place] [address] Mar, [facility] [address] [id number] [address] [place] [address], [place] [address] Feb, [facility] [address] [id number] [address] [place] [address], [place] [address] Feb, [facility] [address] [id number] [address] [place] [address], [place] [address] Feb, [facility] [address] [id number] [address] [place] [address], [place] [address] Feb, [facility] [address] [id number] [address] [place] [address], [place] [address] Jan, [facility] [address] [id number] [address] [place] [address], [place] [address] Jan, [facility] [address] [id number] [address] [place] [address] Jan, [facility] [address] [id number] [address] [place] [address], [place] [address] Jan, [facility] [address] [id number] [address] [place] [address], [place] [address] Nov, [facility] [address] [id number] [address] [place] [address], [place] [address] Mar, [facility] [address] [id number] [address] [place] [address], [place] [address] 02 Mar, 2010 [facility] [address] [id number] [address] [place] [address], [place] [address] 30 Feb, 2010 [facility] [address] [id number] [address] [place] [address], [place] [address] 15 Feb, 2010 [facility] [address] [id number] [address] [place] [address], [place] [address] Jan, [facility] [address] [id number] [address] [place] [address], [place] [address] 19 Jan, 2010 [facility] [address] [id number] [address] [place] [address], [place] [address] 15 Sep, 2009 [facility] [address] [id number] [address] [place] [address], [place] [address] 16 May, 2009 [facility] [address] [id number] [address] [place] [address], [place] [address] Apr, [facility] [address] [id number] [address] [place] [address], [place] [address] Mar, [facility] [address] [id number] [address] [place] [address], [place] [address] 15 Feb, 2009 [facility] [address] [id number] [address] [place] [address] 10 Feb, 2009 [facility] [address] [id number] [address] [place] [address] 10 Feb, 2009 [facility] [address] [id number] [address] [place] [address], [place] [address] 22 Jan, 2009 [facility] [address] [id number] [address] [place] [address], [place] [id number] 13 Jan, 2009 [facility] [address] [id number] [address] [place] [id number] 13 Jan, 2009 [facility] [address] [id number] [address] [place] [id number] Jan, [facility] [address] [facility] [id number] [address] [place] [address] August, IMMUNIZATIONS No Known Immunizations SOCIAL HISTORY Never Assessed REASON FOR VISIT [place] [place] VITAL SIGNS MEDICATIONS Unknown [...] age 6 Hospitalization History surgery Hospitalization History [facility] few times for BH
--- OUTSIDE RECORDS SUMMARY | 2019-09-29 10:55 | XMS REPORT ---
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 Active 89905603 Problem Open-angle glaucoma of both eyes, unspecified glaucoma stage, unspecified open-angle glaucoma type H40.10X0 Acti ve 67884155 Problem Adjustment disorder, unspecified type F43.20 Active 36518199 Problem Obstructive sleep apnea G47.33 Active 53894650 Problem Hypertensive retinopathy of both eyes H35.033 Active 3884567 Problem Type 2 diabetes mellitus with complication E11.8 Active 42001634 Problem Essential hypertension I10 Active 90173389 Problem Diabetes E11.9 Active 21377994 Problem Bipolar disorder, in partial remission, most rec ent episode manic F31.73 Active 30890684 Problem Intermittent explosive disorder in adult F63.81 Active 86777846 Problem Other diabetic neurological complication associated with type 2 diabetes mellitus E11.49 Active 020713883 Problem Depression F32.9 Active 52145213 Problem Neuropathy G62.9 Active 479598535 Problem Intermittent explosive disorder F63.81 Active 04207796 Problem Bipolar disorder, unspecified F31.9 Active 32416231 Problem Mild intellectual disability F70 A ctive 63212784 Problem Reactive airway disease, mild intermittent, uncomplicated J45.20 Active 536952856 Problem Gastroesophageal reflux disease without esophagitis K21.9 Active [id number] ALLERGIES No Information ENCOUNTERS Encounter Location Date Diagnosis [facility] [place] [address] [facility] [id number] [address] [place] [id number] Oct, [facility] [place] [address] [facility] [id number] [address] [place] [id number] August, [facility] [address] [facility] [id number] [address] [place] [address] [id number] August, [facility] [place] [address] [place] [id number] Jul, Onychomycosis B35.1 ; Other diabetic neurological complication associated with type 2 diabetes mellitus E11.49 and Tinea pedis of both feet B35.3 [facility] [address] [place] [id number] [address] [place] [address] [id number] Jul, Caries K02.9 [facility] [place] [address] [facility] [id number] [address] [place] [id number] Jul, Type 2 diabetes mellitus wit h complication E11.8 ; Tobacco abuse Z72.0 and Bipolar disorder, unspecified F31.9 [facility] [place] [address] [place] [id number] [address] [place] [id number] Jun, [facility] [address] [place] [id number] [address] [place] [address] [id number] Jun, Dental examination Z01.20 an d Oral health maintenance status requiring routine preventive dental care K08.9 [facility] [place] [address] [place] [id number] May, Bilateral impacted cerumen H 61.23 [facility] [place] [address] [place] [id number] [address] [place] [id number] Apr, Bipolar disorder, unspecifie d F31.9 ; Intermittent explosive disorder in adult F63.81 ; Type 2 diabetes mellitus with complication E11.8 ; Tobacco abuse Z72.0 and Colon cancer screening Z12.11 [facility] [place] [address] [facility] [id number] [address] [place] [id number] Apr, Onychomycosis B35.1 and Othe r diabetic neurological complication associated with type 2 diabetes mellitus E11.49 [facility] [place] [address] [place] [id number] [address] [place] [id number] Apr, Intermittent explosive disor salvatore in adult F63.81 ; Bipolar disorder, unspecified F31.9 and Mild intellectual disability F70 [facility] [place] [address] [facility] [id number] [address] [place] [id number] 03 Mar, [address] [facility] [address] [facility] [id number] [address] [place] [id number] Jan, Encounter for immunization Z 23 [facility] [place] [address] [facility] [id number] [address] [place] [id number] 12 Jan, 2018 Tinea pedis of both feet B35 .3 ; Other diabetic neurological complication associated with type 2 diabetes mellitus E11.49 and Onychomycosis B35.1 [facility] [place] [address] [facility] [id number] [address] [place] [id number] Nov, Type 2 diabetes mellitus wit h complication E11.8 [facility] [place] [address] [place] [id number] [address] [place] [id number] Nov, [facility] [place] [address] [place] [id number] [address] [place] [id number] Oct, Intermittent explosive disor salvatore in adult F63.81 ; Bipolar disorder, unspecified F31.9 and Mild intellectual disability F70 [facility] [place] [address] [facility] [id number] [address] [place] [id number] Oct, [facility] [address] [place] [id number] [address] [place] [address] [id number] Oct, Dental examination Z01.20 [facility] [place] [address] [facility] [id number] [address] [place] [id number] Oct, Onychomycosis B35.1 and Othe r diabetic neurological complication associated with type 2 diabetes mellitus E11.49 [facility] [place] [address] [facility] [id number] [address] [place] [id number] Sep, Type 2 diabetes mellitus wit h complication E11.8 and Colon cancer screening Z12.11 [facility] [place] [address] [facility] [id number] [address] [place] [id number] 18 Sep, 2017 Type 2 diabetes mellitus wit h complication E11.8 ; Colon cancer screening Z12.11 and Neuropathy G62.9 [facility] [place] [address] [facility] [id number] [address] [place] [id number] August, Diabetes E11.9 [facility] [address] [facility] [id number] [address] [place] [address] [id number] Jul, Dental examination Z01.20 [facility] [place] [address] [facility] [id number] [address] [place] [id number] May, Mild intellectual disability F70 [place] [address] [facility] [id number] [address] [place] [id number] May, Mild intellectual disability F70 ; High risk medication use Z79.899 ; Intermittent explosive disorder in adult F63.81 and Bipolar disorder, unspecified F31.9 [place] [id number] [id number] May, [facility] [place] [address] [place] [id number] [address] [place] [id number] May, [facility] [place] [address] [place] [id number] [address] [place] [id number] Apr, Type 2 diabetes mellitus wit h complication E11.8 ; Mild intellectual disability F70 ; Gastroesophageal reflux disease without esophagitis K21.9 ; Reactive airway disease, mild intermittent, uncomplicated J45.20 and Tobacco abuse Z72.0 [place] [address] [place] [id number] Apr, High risk medication use Z79 .899 ; Mild intellectual disability F70 ; Intermittent explosive disorder in adult F63.81 and Bipolar disorder, unspecified F31.9 [facility] [address] [place] [id number] [address] [place] [address] [id number] Mar, Dental examination Z01.20 [facility] [address] [facility] [id number] [address] [place] [address] [id number] Mar, Encounter for dental exam an d cleaning w/o abnormal findings Z01.20 [facility] [place] [address] [id number] [address] [place] [phone] 12 Jan, 2017 [facility] [place] [address] [id number] [address] [place] [id number] Jan, [facility] [place] [address] [id number] [address] [place] [id number] 10 Jan, 2017 Mild intellectual disability F70 ; Bipolar disorder, unspecified F31.9 and Intermittent explosive disorder in adult F63.81 [facility] [place] [address] [id number] [address] [place] [id number] 02 Jan, 2017 Diabetes E11.9 [facility] [address] [id number] [address] [place] [address] [id number] 13 Dec, 2016 Encounter for dental examina tion and cleaning without abnormal findings Z01.20 [facility] [place] [address] [id number] [address] [place] [id number] 12 Dec, 2016 Bipolar disorder, unspecifie d F31.9 ; Intermittent explosive disorder in adult F63.81 and Mild intellectual disability F70 [facility] [place] [address] [id number] [address] [place] [id number] Nov, Diabetes E11.9 [facility] [place] [address] [id number] [address] [place] [id number] Nov, [facility] [place] [address] [id number] [address] [place] [id number] Nov, Diabetes E11.9 and Colon can cer screening Z12.[id number] [place] [address] [id number] 21 Sep, 2016 Dental examination Z01.20 [facility] [address] [id number] [address] [place] [address] [id number] 21 Sep, 2016 Encounter for dental examina tion and cleaning without abnormal findings Z01.20 [facility] [place] [address] [id number] [address] [place] [id number] 13 Sep, 2016 Bipolar disorder, unspecifie d F31.9 [facility] [place] [address] [id number] [address] [place] [id number] 12 Sep, 2016 Bipolar disorder, unspecifie d F31.9 [facility] [place] [address] [id number] [address] [place] [id number] Jul, [facility] [place] [address] [facility] [id number] [address] [place] [id number] 13 Jul, 2016 Type 2 diabetes mellitus wit h complication E11.8 [facility] [address] [id number] [address] [place] [address] [id number] 15 Jun, 2016 Encounter for dental examina tion and cleaning without abnormal findings Z01.20 [place] [id number] [facility] [id number] [place] [address] [id number] 15 Jun, 2016 Dental examination Z01.20 [facility] [place] [address] [facility] [id number] [address] [place] [id number] Apr, Sports physical Z02.5 [facility] [place] [address] [facility] [id number] [address] [place] [id number] 14 Mar, 2016 Bipolar disorder, in partial remission, most recent episode manic F31.73 and Intermittent explosive disorder in adult F63.81 [facility] [place] [address] [facility] [id number] [address] [place] [id number] 08 Mar, 2016 [facility] [place] [address] [facility] [id number] [address] [place] [id number] 06 Mar, 2016 Diabetes E11.9 [facility] [address] [id number] [address] [place] [address] [id number] Feb, Encounter for dental examina tion and cleaning without abnormal findings Z01.20 [facility] [place] [address] [facility] [id number] [address] [place] [id number] 22 Dec, 2015 Nocturnal hypoxemia G47.34 a nd Encounter for immunization Z23 [facility] [place] [address] [facility] [id number] [address] [place] [id number] 15 Dec, 2015 [facility] [place] [address] [facility] [id number] [address] [place] [id number] Dec, [facility] [place] [address] [facility] [id number] [address] [place] [id number] Dec, Bipolar disorder, unspecifie d F31.9 [facility] [address] [id number] [address] [place] [address] [id number] Oct, Encounter for dental examina tion and cleaning without abnormal findings Z01.[address] [facility] [address] [id number] [id number] 13 Oct, 2015 Dental examination Z01.20 [facility] [place] [address] [facility] [id number] [address] [place] [id number] 07 Oct, 2015 Diabetes E11.9 [facility] [place] [address] [place] [id number] [place] [phone] Oct, Diabetes E11.9 ; Reactive ai rway disease, mild intermittent, uncomplicated J45.20 and Tobacco abuse Z72.0 [facility] [place] [address] [place] [id number] Sep, Bipolar disorder, unspecifie d F31.9 and Depression F32.9 [facility] [place] [address] [place] [id number] [address] [place] [id number] Sep, [facility] [place] [address] [id number] August, Tinea pedis of both feet B35 .3 and DM w/o complication type II, uncontrolled E11.65 [facility] [place] [address] [facility] [id number] [address] [place] [id number] Jul, [facility] [place] [address] [id number] Jul, [facility] [place] [address] [facility] [id number] [address] [place] [id number] Jul, Obstructive sleep apnea G47. 33 [facility] [place] [address] [place] [id number] [address] [place] [id number] Jun, Diabetes E11.9 [facility] [place] [address] [id number] Jun, [facility] [place] [address] [id number] Jun, [place] [address] [id number] Jun, Bipolar disorder, unspecifie d F31.9 and Mental retardation F79 [place] [address] [id number] Apr, [place] [address] [id number] Feb, Diabetes E11.9 ; Encounter f or immunization Z23 ; Cough R05 and Nicotine abuse Z72.0 [place] [address] [id number] Jan, Bipolar disorder, unspecifie d F31.9 and Diabetes mellitus without mention of complication, type II or unspecified type, uncontrolled 250.02 [place] [address] [id number] Jan, [place] [address] [address] Dec, Reactive airway disease 493. 90 and Enuresis 788.30 [place] [address] [id number] Dec, [place] [address] [address] Nov, [place] [address] [address] Nov, [place] [address] [id number] Nov, Annual physical exam V70.0 ; Urinary incontinence 788.30 ; Diabetes 250.00 and Hypertension 401.9 [facility] [place] [address] [id number] [address] [place] [id number] Oct, Diabetes mellitus without me ntion of complication, type II or unspecified type, uncontrolled 250.02 [facility] [place] [address] [id number] [address] [place] [id number] Oct, Diabetes mellitus without me ntion of complication, type II or unspecified type, uncontrolled 250.02 [facility] [place] [address] [id number] [address] [place] [id number] Oct, Diabetes mellitus without me ntion of complication, type II or unspecified type, uncontrolled 250.02 [facility] [place] [address] [id number] [address] [place] [id number] Oct, [facility] [place] [address] [id number] [address] [place] [id number] Oct, [facility] [place] [address] [id number] [address] [place] [id number] Oct, Bipolar disorder, unspecifie d 296.80 [facility] [address] [id number] [place] [address] [id number] Sep, Dental examination V72.2 [facility] [place] [address] [id number] [address] [place] [id number] August, [facility] [address] [id number] [place] [address] [id number] August, Dental examination V72.2 [facility] [place] [address] [id number] [address] [place] [id number] August, [facility] [place] [address] [id number] [address] [place] [id number] Jul, [facility] [place] [address] [id number] [address] [place] [id number] Jul, [facility] [place] [address] [facility] [id number] [address] [place] [id number] Jun, [facility] [address] [id number] [address] [place] [address], [place] [id number] 17 Jun, 2014 [facility] [address] [id number] [address] [place] [address], [place] [id number] 17 Jun, 2014 [facility] [address] [id number] [address] [place] [address], [place] [id number] 17 Jun, 2014 [facility] [address] [id number] [address] [place] [address], [place] [id number] 23 May, 2014 [facility] [address] [id number] [address] [place] [address], [place] [id number] 23 May, 2014 [facility] [address] [id number] [address] [place] [address], [place] [id number] 16 May, 2014 [facility] [address] [id number] [address] [place] [address], [place] [id number] 16 May, 2014 [facility] [address] [id number] [address] [place] [address], [place] [id number] 16 May, 2014 [facility] [address] [id number] [address] [place] [address], [place] [id number] 16 May, 2014 [facility] [address] [id number] [address] [place] [address], [place] [id number] 16 May, 2014 [facility] [address] [id number] [address] [place] [address], [place] [id number] 16 May, 2014 [facility] [address] [id number] [address] [place] [address], [place] [id number] 16 May, 2014 [facility] [address] [id number] [address] [place] [address], [place] [id number] 16 May, 2014 [facility] [address] [id number] [address] [place] [address], [place] [id number] 16 May, 2014 [facility] [address] [id number] [address] [place] [address], [place] [id number] 16 May, 2014 [facility] [address] [id number] [address] [place] [address], [place] [id number] May, [facility] [address] [id number] [address] [place] [address], [place] [id number] May, [facility] [address] [id number] [address] [place] [address], [place] [id number] May, [facility] [address] [id number] [address] [place] [address], [place] [id number] Apr, [facility] [address] [id number] [address] [place] [address], [place] [id number] Apr, [facility] [address] [id number] [address] [place] [address], [place] [id number] Apr, [facility] [address] [id number] [address] [place] [address], [place] [id number] Apr, [facility] [address] [id number] [address] [place] [address], [place] [id number] Apr, [facility] [address] [id number] [address] [place] [address], [place] [id number] Apr, [facility] [address] [id number] [address] [place] [address], [place] [id number] Apr, [facility] [address] [id number] [address] [place] [address], [place] [id number] Apr, [facility] [address] [id number] [address] [place] [address], [place] [id number] Apr, [facility] [address] [id number] [address] [place] [address], [place] [id number] Apr, [facility] [address] [id number] [address] [place] [address], [place] [id number] Apr, [facility] [address] [id number] [address] [place] [address], [place] [id number] Apr, [facility] [address] [id number] [address] [place] [address], [place] [id number] Mar, [facility] [address] [id number] [address] [place] [address], [place] [id number] Mar, [facility] [address] [id number] [address] [place] [address], [place] [id number] Mar, [facility] [address] [id number] [address] [place] [address], [place] [id number] Mar, [facility] [address] [id number] [address] [place] [address], [place] [id number] Mar, [facility] [address] [id number] [address] [place] [address], [place] [id number] Mar, [facility] [address] [id number] [address] [place] [address], [place] [id number] Feb, [facility] [address] [id number] [address] [place] [address], [place] [id number] Feb, [facility] [address] [id number] [address] [place] [address], [place] [id number] Feb, [facility] [address] [id number] [address] [place] [address], [place] [id number] Feb, [facility] [address] [id number] [address] [place] [address], [place] [id number] 14 Jan, 2014 [facility] [address] [id number] [address] [place] [address], [place] [address] 14 Jan, 2014 [facility] [address] [id number] [address] [place] [address], [place] [id number] 14 Jan, 2014 [facility] [address] [id number] [address] [place] [address], [place] [id number] 14 Jan, 2014 [facility] [address] [id number] [address] [place] [address], [place] [id number] 22 Dec, 2013 [facility] [address] [id number] [address] [place] [address], [place] [id number] 22 Dec, 2013 [facility] [address] [id number] [facility] [place] [id number] 15 Dec, 2013 [facility] [address] [id number] [address] [place] [address], [place] [address] Dec, [facility] [address] [id number] [address] [place] [address], [place] [address] Nov, [facility] [address] [id number] [address] [place] [address], [place] [address] Nov, [facility] [address] [id number] [address] [place] [address], [place] [id number] Nov, [facility] [address] [id number] [address] [place] [address], [place] [id number] Nov, [facility] [address] [id number] [address] [place] [address], [place] [address] Nov, [facility] [address] [id number] [address] [place] [address], [place] [id number] Nov, [facility] [address] [id number] [address] [place] [address], [place] [address] Nov, [facility] [address] [id number] [address] [place] [address], [place] [id number] Oct, [facility] [address] [id number] [address] [place] [address], [place] [id number] Oct, [facility] [address] [id number] [address] [place] [address], [place] [id number] Oct, [facility] [address] [id number] [address] [place] [address], [place] [id number] Oct, [facility] [address] [id number] [address] [place] [address], [place] [id number] Oct, [facility] [address] [id number] [address] [place] [address], [place] [id number] Oct, [facility] [address] [id number] [address] [place] [address], [place] [id number] Oct, [facility] [address] [id number] [address] [place] [address], [place] [id number] Sep, [facility] [address] [id number] [address] [place] [address], [place] [id number] Sep, [facility] [address] [id number] [address] [place] [address], [place] [id number] Sep, [facility] [address] [id number] [address] [place] [address], [place] [id number] Sep, [facility] [address] [id number] [address] [place] [address], [place] [id number] Sep, [facility] [address] [id number] [address] [place] [address], [place] [id number] Jul, [facility] [address] [id number] [address] [place] [address], [place] [id number] Jul, [facility] [address] [id number] [address] [place] [address], [place] [id number] Jul, [facility] [address] [id number] [address] [place] [address], [place] [id number] Jul, [facility] [address] [id number] [address] [place] [address], [place] [address] Jul, [facility] [address] [id number] [address] [place] [address], [place] [id number] Jul, [facility] [address] [id number] [address] [place] [address], [place] [id number] Jul, [facility] [address] [id number] [address] [place] [address], [place] [id number] Jul, [facility] [address] [id number] [address] [place] [address], [place] [address] Jul, [facility] [address] [id number] [address] [place] [address], [place] [id number] Jul, [facility] [address] [id number] [address] [place] [address], [place] [address] Jul, [facility] [address] [id number] [address] [place] [address], [place] [id number] Jul, [facility] [address] [id number] [address] [place] [address], [place] [id number] Jun, [facility] [address] [id number] [address] [place] [address], [place] [id number] Jun, [facility] [address] [id number] [address] [place] [address], [place] [address] Jun, [facility] [address] [id number] [address] [place] [address], [place] [address] Jun, [facility] [address] [id number] [address] [place] [address], [place] [address] Jun, [facility] [address] [id number] [address] [place] [address], [place] [address] Jun, [facility] [address] [id number] [address] [place] [address], [place] [id number] Jun, [facility] [address] [id number] [address] [place] [address], [place] [id number] Jun, [facility] [address] [id number] [address] [place] [address], [place] [id number] May, [facility] [address] [id number] [address] [place] [address], [place] [id number] May, [facility] [address] [id number] [address] [place] [address], [place] [address] May, [facility] [address] [id number] [address] [place] [address], [place] [address] May, [facility] [address] [id number] [address] [place] [address], [place] [id number] May, [facility] [address] [id number] [address] [place] [address], [place] [address] May, [facility] [address] [id number] [address] [place] [address], [place] [address] May, [facility] [address] [id number] [address] [place] [address], [place] [id number] May, [facility] [address] [id number] [address] [place] [address], [place] [address] Apr, [facility] [address] [id number] [address] [place] [address], [place] [id number] Apr, [facility] [address] [id number] [address] [place] [address], [place] [id number] Apr, [facility] [address] [id number] [address] [place] [address], [place] [id number] Apr, [facility] [address] [id number] [address] [place] [address], [place] [address] Mar, [facility] [address] [id number] [address] [place] [address], [place] [id number] Mar, [facility] [address] [id number] [address] [place] [address], [place] [id number] Mar, [facility] [address] [id number] [address] [place] [address], [place] [id number] Feb, [facility] [address] [id number] [address] [place] [address], [place] [address] Feb, [facility] [address] [id number] [address] [place] [address], [place] [id number] Feb, [facility] [address] [id number] [address] [place] [address], [place] [id number] Feb, [facility] [address] [id number] [address] [place] [address], [place] [id number] Feb, [facility] [address] [id number] [address] [place] [address], [place] [id number] Feb, [facility] [address] [id number] [address] [place] [address], [place] [id number] Jan, [facility] [address] [id number] [address] [place] [address], [place] [id number] Jan, [facility] [address] [id number] [address] [place] [address], [place] [id number] Jan, [facility] [address] [id number] [address] [place] [address], [place] [address] Jan, [facility] [address] [id number] [address] [place] [address], [place] [address] Jan, [facility] [address] [id number] [address] [place] [address], [place] [address] Jan, [facility] [address] [id number] [address] [place] [address], [place] [id number] Jan, [facility] [address] [id number] [address] [place] [address], [place] [id number] Dec, [facility] [address] [id number] [address] [place] [address], [place] [id number] 16 Dec, 2012 [facility] [address] [id number] [address] [place] [address], [place] [id number] 10 Dec, 2012 [facility] [address] [id number] [address] [place] [address], [place] [id number] 05 Dec, 2012 [facility] [address] [id number] [address] [place] [address], [place] [id number] Nov, [facility] [address] [id number] [address] [place] [address], [place] [address] Nov, [facility] [address] [id number] [address] [place] [address], [place] [id number] Nov, [facility] [address] [id number] [address] [place] [address], [place] [id number] Nov, [facility] [address] [id number] [address] [place] [address], [place] [id number] Nov, [facility] [address] [id number] [address] [place] [address], [place] [id number] Nov, [facility] [address] [id number] [address] [place] [address], [place] [id number] Nov, [facility] [address] [id number] [address] [place] [address], [place] [id number] Oct, [facility] [address] [id number] [address] [place] [address], [place] [id number] Oct, [facility] [address] [id number] [address] [place] [address], [place] [id number] Oct, [facility] [address] [id number] [address] [place] [address], [place] [address] Oct, [facility] [address] [id number] [address] [place] [address], [place] [id number] Oct, [facility] [address] [id number] [address] [place] [address], [place] [id number] Oct, [facility] [address] [id number] [address] [place] [address], [place] [id number] Oct, [facility] [address] [id number] [address] [place] [address], [place] [id number] Oct, [facility] [address] [id number] [address] [place] [address], [place] [id number] Sep, [facility] [id number] [place] [address] [id number] August, [facility] [address] [id number] [address] [place] [address], [place] [address] August, [facility] [address] [id number] [address] [place] [address], [place] [address] Jul, [facility] [address] [id number] [address] [place] [address], [place] [id number] Jul, [facility] [address] [id number] [address] [place] [address], [place] [id number] Jul, 2012 [facility] [address] [id number] [address] [place] [address], [place] [id number] 22 Jul, 2012 [facility] [address] [id number] [address] [place] [address], [place] [id number] 18 Jul, 2012 [facility] [address] [id number] [address] [place] [address], [place] [id number] 17 Jul, 2012 [facility] [address] [id number] [address] [place] [address], [place] [id number] 16 Jul, 2012 [facility] [address] [id number] [address] [place] [address], [place] [id number] Jun, [facility] [address] [id number] [address] [place] [address], [place] [id number] Jun, [facility] [address] [id number] [address] [place] [address], [place] [id number] Jun, [facility] [address] [id number] [address] [place] [address], [place] [id number] Jun, [facility] [address] [id number] [address] [place] [address], [place] [id number] Jun, [facility] [address] [id number] [address] [place] [address], [place] [address] May, [facility] [address] [id number] [address] [place] [address], [place] [id number] 18 May, 2012 [facility] [address] [id number] [address] [place] [address], [place] [id number] May, [facility] [address] [id number] [address] [place] [address], [place] [id number] 15 Apr, 2012 [facility] [address] [id number] [address] [place] [address], [place] [id number] 14 Apr, 2012 [facility] [address] [id number] [address] [place] [address], [place] [id number] 07 Apr, 2012 [facility] [address] [id number] [address] [place] [address], [place] [id number] 31 Mar, 2012 [facility] [address] [id number] [address] [place] [address], [place] [id number] 31 Mar, 2012 [facility] [address] [id number] [address] [place] [address], [place] [id number] Mar, [facility] [address] [id number] [address] [place] [address], [place] [id number] Mar, [facility] [address] [id number] [address] [place] [address], [place] [address] Mar, [facility] [address] [id number] [address] [place] [address], [place] [id number] Mar, [facility] [address] [id number] [address] [place] [address], [place] [id number] Feb, [facility] [address] [id number] [address] [place] [address], [place] [id number] Feb, [facility] [address] [id number] [address] [place] [address], [place] [address] Jan, [facility] [address] [id number] [address] [place] [address], [place] [address] Jan, [facility] [address] [id number] [address] [place] [address], [place] [id number] Dec, [facility] [address] [id number] [address] [place] [address], [place] [id number] Nov, [facility] [address] [id number] [address] [place] [address], [place] [id number] Nov, [facility] [address] [id number] [address] [place] [address], [place] [address] Nov, [facility] [address] [id number] [address] [place] [address], [place] [address] Nov, [facility] [address] [id number] [address] [place] [address], [place] [address] Oct, [facility] [address] [id number] [address] [place] [address], [place] [id number] Oct, [facility] [address] [id number] [address] [place] [address], [place] [id number] Oct, [facility] [address] [id number] [address] [place] [address], [place] [id number] Sep, [facility] [address] [id number] [address] [place] [address], [place] [id number] Sep, [facility] [address] [id number] [address] [place] [address], [place] [address] Sep, [facility] [address] [id number] [address] [place] [address], [place] [address] August, [facility] [address] [id number] [address] [place] [address], [place] [id number] August, [facility] [address] [id number] [address] [place] [address], [place] [id number] Jul, [facility] [address] [id number] [address] [place] [address], [place] [address] Jul, [facility] [address] [id number] [address] [place] [address], [place] [address] Jul, [facility] [address] [id number] [address] [place] [address], [place] [address] Jul, [facility] [address] [id number] [address] [place] [address], [place] [id number] Jun, [facility] [address] [id number] [address] [place] [address], [place] [id number] May, [facility] [address] [id number] [address] [place] [address], [place] [id number] Apr, [facility] [address] [id number] [address] [place] [address], [place] [id number] Apr, [facility] [address] [id number] [address] [place] [address], [place] [id number] Apr, [facility] [address] [id number] [address] [place] [address], [place] [id number] Apr, [facility] [address] [id number] [address] [place] [address], [place] [id number] Apr, [facility] [address] [id number] [address] [place] [address], [place] [id number] Apr, [facility] [address] [id number] [address] [place] [address], [place] [id number] Mar, [facility] [address] [id number] [address] [place] [address], [place] [id number] Mar, [facility] [address] [id number] [address] [place] [address], [place] [id number] Feb, [facility] [address] [id number] [address] [place] [address], [place] [id number] Feb, [facility] [address] [id number] [address] [place] [address], [place] [address] Feb, [facility] [address] [id number] [address] [place] [address], [place] [id number] Feb, [facility] [address] [id number] [address] [place] [address], [place] [address] Jan, [facility] [address] [id number] [address] [place] [address], [place] [id number] Jan, [facility] [address] [id number] [address] [place] [id number] Jan, [facility] [address] [id number] [address] [place] [address], [place] [address] Jan, [facility] [address] [id number] [address] [place] [address], [place] [address] Nov, [facility] [address] [id number] [address] [place] [address], [place] [id number] Mar, [facility] [address] [id number] [address] [place] [address], [place] [id number] 02 Mar, 2010 [facility] [address] [id number] [address] [place] [address], [place] [id number] 30 Feb, 2010 [facility] [address] [id number] [address] [place] [address], [place] [id number] 15 Feb, 2010 [facility] [address] [id number] [address] [place] [address], [place] [id number] Jan, [facility] [address] [id number] [address] [place] [address], [place] [id number] 19 Jan, 2010 [facility] [address] [id number] [address] [place] [address], [place] [id number] 15 Sep, 2009 [facility] [address] [id number] [address] [place] [address], [place] [id number] 16 May, 2009 [facility] [address] [id number] [address] [place] [address], [place] [id number] Apr, [facility] [address] [id number] [address] [place] [address], [place] [id number] Mar, [facility] [address] [id number] [address] [place] [address], [place] [id number] 15 Feb, 2009 [facility] [address] [id number] [address] [place] [id number] 10 Feb, 2009 [facility] [address] [id number] [address] [place] [id number] 10 Feb, 2009 [facility] [address] [id number] [address] [place] [address], [place] [id number] 22 Jan, 2009 [facility] [address] [id number] [address] [place] [address], [place] [id number] 13 Jan, 2009 [facility] [address] [id number] [address] [place] [id number] 13 Jan, 2009 [facility] [address] [id number] [address] [place] [id number] Jan, [facility] [address] [facility] [id number] [address] [place] [address] August, IMMUNIZATIONS No Known Immunizations SOCIAL HISTORY Never Assessed REASON FOR VISIT [facility]MR[facility] PLAN OF CARE VITAL SIGNS MEDICATIONS Unknown [...] age 6 Hospitalization History surgery Hospitalization History [facility], [facility] maldonado treatment few times for BH
--- OUTSIDE RECORDS SUMMARY | 2019-09-29 10:55 | XMS REPORT ---
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 Active 71060583 Problem Open-angle glaucoma of both eyes, unspecified glaucoma stage, unspecified open-angle glaucoma type H40.10X0 Acti ve 49876526 Problem Adjustment disorder, unspecified type F43.20 Active 20172419 Problem Obstructive sleep apnea G47.33 Active 81533558 Problem Hypertensive retinopathy of both eyes H35.033 Active 1952550 Problem Type 2 diabetes mellitus with complication E11.8 Active 79622754 Problem Essential hypertension I10 Active 60549707 Problem Diabetes E11.9 Active 96242283 Problem Bipolar disorder, in partial remission, most rec ent episode manic F31.73 Active 70286493 Problem Intermittent explosive disorder in adult F63.81 Active 62753313 Problem Other diabetic neurological complication associated with type 2 diabetes mellitus E11.49 Active 633707285 Problem Depression F32.9 Active 93382843 Problem Neuropathy G62.9 Active 874035142 Problem Intermittent explosive disorder F63.81 Active 82494589 Problem Bipolar disorder, unspecified F31.9 Active 59808469 Problem Mild intellectual disability F70 A ctive 01608529 Problem Reactive airway disease, mild intermittent, uncomplicated J45.20 Active 310389618 Problem Gastroesophageal reflux disease without esophagitis K21.9 Active 415034697 ALLERGIES No Information ENCOUNTERS Encounter Location Date Diagnosis [facility] [address] [facility] [id number] [address] [place] [phone] Oct, [facility] [address] [facility] [id number] [address] [place] [address] August, [facility] [address] [facility] [id number] [address] [place] [address] [id number] August, [facility] [address] [facility] [id number] [address] [place] [address] Jul, Onychomycosis B35.1 ; Other diabetic neurological complication associated with type 2 diabetes mellitus E11.49 and Tinea pedis of both feet B35.3 [facility] [address] [place] [id number] [address] [place] [address] [id number] Jul, Caries K02.9 [facility] [address] [facility] [id number] [address] [place] [address] Jul, Type 2 diabetes mellitus wit h complication E11.8 ; Tobacco abuse Z72.0 and Bipolar disorder, unspecified F31.9 [facility] [address] [place] [id number] [address] [place] [address] Jun, [facility] [address] [place] [id number] [address] [place] [address] [id number] Jun, Dental examination Z01.20 an d Oral health maintenance status requiring routine preventive dental care K08.9 [facility] [id number] [place] [address] May, Bilateral impacted cerumen H 61.23 [facility] [address] [place] [id number] [address] [place] [address] Apr, Bipolar disorder, unspecifie d F31.9 ; Intermittent explosive disorder in adult F63.81 ; Type 2 diabetes mellitus with complication E11.8 ; Tobacco abuse Z72.0 and Colon cancer screening Z12.11 [facility] [address] [facility] [id number] [address] [place] [address] Apr, Onychomycosis B35.1 and Othe r diabetic neurological complication associated with type 2 diabetes mellitus E11.49 [facility] [address] [place] [id number] [address] [place] [address] Apr, Intermittent explosive disor salvatore in adult F63.81 ; Bipolar disorder, unspecified F31.9 and Mild intellectual disability F70 [facility] [address] [facility] [id number] [address] [place] [phone] 03 Mar, 2018 Diabetes E11.9 [facility] [address] [facility] [id number] [address] [place] [phone] Jan, Encounter for immunization Z 23 [facility] [address] [facility] [id number] [address] [place] [address] 12 Jan, 2018 Tinea pedis of both feet B35 .3 ; Other diabetic neurological complication associated with type 2 diabetes mellitus E11.49 and Onychomycosis B35.1 [facility] [address] [facility] [id number] [address] [place] [address] Nov, Type 2 diabetes mellitus wit h complication E11.8 [facility] [address] [place] [id number] [address] [place] [address] Nov, [facility] [address] [place] [id number] [address] [place] [address] Oct, Intermittent explosive disor salvatore in adult F63.81 ; Bipolar disorder, unspecified F31.9 and Mild intellectual disability F70 [facility] [address] [facility] [id number] [address] [place] [address] Oct, [facility] [address] [place] [id number] [address] [place] [address] [id number] Oct, Dental examination Z01.20 [facility] [address] [facility] [id number] [address] [place] [address] Oct, Onychomycosis B35.1 and Othe r diabetic neurological complication associated with type 2 diabetes mellitus E11.49 [facility] [address] [facility] [id number] [address] [place] [address] Sep, Type 2 diabetes mellitus wit h complication E11.8 and Colon cancer screening Z12.11 [facility] [address] [facility] [id number] [address] [place] [address] 18 Sep, 2017 Type 2 diabetes mellitus wit h complication E11.8 ; Colon cancer screening Z12.11 and Neuropathy G62.9 [facility] [address] [facility] [id number] [address] [place] [address] August, Diabetes E11.9 [facility] [address] [facility] [id number] [address] [place] [address] [id number] Jul, Dental examination Z01.20 [facility] [address] [facility] [id number] [address] [place] [address] May, Mild intellectual disability F70 [facility] [address] [facility] [id number] [address] [place] [address] May, Mild intellectual disability F70 ; High risk medication use Z79.899 ; Intermittent explosive disorder in adult F63.81 and Bipolar disorder, unspecified F31.9 [facility] [address] [address] May, [facility] [address] [place] [id number] [address] [place] [address] May, [facility] [address] [place] [id number] [address] [place] [address] Apr, Type 2 diabetes mellitus wit h complication E11.8 ; Mild intellectual disability F70 ; Gastroesophageal reflux disease without esophagitis K21.9 ; Reactive airway disease, mild intermittent, uncomplicated J45.20 and Tobacco abuse Z72.0 [facility] [address] [place] [id number] [address] [place] [address] Apr, High risk medication use Z79 .899 ; Mild intellectual disability F70 ; Intermittent explosive disorder in adult F63.81 and Bipolar disorder, unspecified F31.9 [facility] [id number] [place] [address] [phone] Mar, Encounter for dental exam an d cleaning w/o abnormal findings Z01.20 [facility] [address] [facility] [id number] [address] [place] [address] [phone] Mar, Dental examination Z01.20 [facility] [address] [id number] [address] [place] [id number] 12 Jan, 2017 [facility] [address] [id number] [address] [place] [address] Jan, [facility] [address] [id number] [address] [place] [address] 10 Jan, 2017 Mild intellectual disability F70 ; Bipolar disorder, unspecified F31.9 and Intermittent explosive disorder in adult F63.81 [facility] [address] [id number] [address] [place] [address] 02 Jan, 2017 Diabetes E11.9 [facility] [address] [id number] [address] [place] [address] [id number] 13 Dec, 2016 Encounter for dental examina tion and cleaning without abnormal findings Z01.20 [facility] [address] [id number] [address] [place] [address] 12 Dec, 2016 Bipolar disorder, unspecifie d F31.9 ; Intermittent explosive disorder in adult F63.81 and Mild intellectual disability F70 [facility] [address] [id number] [address] [place] [address] Nov, Diabetes E11.9 [facility] [address] [id number] [address] [place] [address] Nov, [facility] [address] [id number] [address] [place] [address] Nov, Diabetes E11.9 and Colon can cer screening Z12.[id number] [place] [address] [id number] 21 Sep, 2016 Dental examination Z01.20 [facility] [address] [id number] [address] [place] [address] [id number] 21 Sep, 2016 Encounter for dental examina tion and cleaning without abnormal findings Z01.20 [facility] [address] [id number] [address] [place] [address] 13 Sep, 2016 Bipolar disorder, unspecifie d F31.9 [facility] [address] [id number] [address] [place] [address] 12 Sep, 2016 Bipolar disorder, unspecifie d F31.9 [facility] [address] [id number] [address] [place] [address] Jul, [facility] [address] [facility] [id number] [address] [place] [phone] 13 Jul, 2016 Type 2 diabetes mellitus wit h complication E11.8 [facility] [address] [id number] [address] [place] [address] [id number] 15 Jun, 2016 Encounter for dental examina tion and cleaning without abnormal findings Z01.20 [place] [id number] [facility] [id number] [place] [address] [id number] 15 Jun, 2016 Dental examination Z01.20 [facility] [address] [facility] [id number] [address] [place] [address] Apr, Sports physical Z02.5 [facility] [address] [facility] [id number] [address] [place] [address] 14 Mar, 2016 Bipolar disorder, in partial remission, most recent episode manic F31.73 and Intermittent explosive disorder in adult F63.81 [facility] [address] [facility] [id number] [address] [place] [address] 08 Mar, 2016 [facility] [address] [facility] [id number] [address] [place] [address] 06 Mar, 2016 Diabetes E11.9 [facility] [address] [id number] [address] [place] [address] [phone] Feb, Encounter for dental examina tion and cleaning without abnormal findings Z01.20 [facility] [address] [facility] [id number] [address] [place] [address] 22 Dec, 2015 Nocturnal hypoxemia G47.34 a nd Encounter for immunization Z23 [facility] [address] [facility] [id number] [address] [place] [phone] 15 Dec, 2015 [facility] [address] [facility] [id number] [address] [place] [address] Dec, [facility] [address] [facility] [id number] [address] [place] [address] Dec, Bipolar disorder, unspecifie d F31.9 [facility] [address] [id number] [address] [place] [address] [id number] Oct, Encounter for dental examina tion and cleaning without abnormal findings Z01.20 [facility] [address] [id number] [id number] 13 Oct, 2015 Dental examination Z01.20 [facility] [address] [facility] [id number] [address] [place] [address] 07 Oct, 2015 Diabetes E11.9 [facility] [address] [place] [id number] [place] [address] Oct, Diabetes E11.9 ; Reactive ai rway disease, mild intermittent, uncomplicated J45.20 and Tobacco abuse Z72.0 [facility] [address] [place] [address] Sep, Bipolar disorder, unspecifie d F31.9 and Depression F32.9 [facility] [address] [place] [id number] [address] [place] [address] Sep, [facility] [address] [id number] August, Tinea pedis of both feet B35 .3 and DM w/o complication type II, uncontrolled E11.65 [facility] [address] [facility] [id number] [address] [place] [address] Jul, [facility] [address] [id number] Jul, [facility] [address] [facility] [id number] [address] [place] [address] Jul, Obstructive sleep apnea G47. 33 [facility] [address] [place] [id number] [address] [place] [address] Jun, Diabetes E11.9 [facility] [address] [address] Jun, [facility] [address] [address] Jun, [place] [address] [address] Jun, Bipolar disorder, unspecifie d F31.9 and Mental retardation F79 [place] [address] [address] Apr, [place] [address] [address] Feb, Diabetes E11.9 ; Encounter f or immunization Z23 ; Cough R05 and Nicotine abuse Z72.0 [place] [address] [address] Jan, Bipolar disorder, unspecifie d F31.9 and Diabetes mellitus without mention of complication, type II or unspecified type, uncontrolled 250.02 [place] [address] [address] Jan, [place] [address] [address] Dec, Reactive airway disease 493. 90 and Enuresis 788.30 [place] [address] [address] Dec, [place] [address] [address] Nov, [place] [address] [address] Nov, [place] [address] [address] Nov, Annual physical exam V70.0 ; Urinary incontinence 788.30 ; Diabetes 250.00 and Hypertension 401.9 [facility] [address] [id number] [address] [place] [address] Oct, Diabetes mellitus without me ntion of complication, type II or unspecified type, uncontrolled 250.02 [facility] [address] [id number] [address] [place] [address] Oct, Diabetes mellitus without me ntion of complication, type II or unspecified type, uncontrolled 250.02 [facility] [address] [id number] [address] [place] [address] Oct, Diabetes mellitus without me ntion of complication, type II or unspecified type, uncontrolled 250.02 [facility] [address] [id number] [address] [place] [address] Oct, [facility] [address] [id number] [address] [place] [address] Oct, [facility] [address] [id number] [address] [place] [address] Oct, Bipolar disorder, unspecifie d 296.80 [facility] [address] [id number] [place] [address] [id number] Sep, Dental examination V72.2 [facility] [address] [id number] [address] [place] [address] August, [facility] [address] [id number] [place] [address] [id number] August, Dental examination V72.2 [facility] [address] [id number] [address] [place] [address] August, [facility] [address] [id number] [address] [place] [address] Jul, [facility] [address] [id number] [address] [place] [address] Jul, [facility] [address] [facility] [id number] [address] [place] [address] Jun, [facility] [address] [id number] [address] [place] [address], [place] [address] 17 Jun, 2014 [facility] [address] [id number] [address] [place] [address], [place] [address] 17 Jun, 2014 [facility] [address] [id number] [address] [place] [address], [place] [address] 17 Jun, 2014 [facility] [address] [id number] [address] [place] [address], [place] [address] 23 May, 2014 [facility] [address] [id number] [address] [place] [address], [place] [address] 23 May, 2014 [facility] [address] [id number] [address] [place] [address], [place] [address] 16 May, 2014 [facility] [address] [id number] [address] [place] [address], [place] [address] 16 May, 2014 [facility] [address] [id number] [address] [place] [address], [place] [address] 16 May, 2014 [facility] [address] [id number] [address] [place] [address], [place] [address] 16 May, 2014 [facility] [address] [id number] [address] [place] [address], [place] [address] 16 May, 2014 [facility] [address] [id number] [address] [place] [address], [place] [address] 16 May, 2014 [facility] [address] [id number] [address] [place] [address], [place] [address] 16 May, 2014 [facility] [address] [id number] [address] [place] [address], [place] [address] 16 May, 2014 [facility] [address] [id number] [address] [place] [address], [place] [address] 16 May, 2014 [facility] [address] [id number] [address] [place] [address], [place] [address] 16 May, 2014 [facility] [address] [id number] [address] [place] [address], [place] [address] May, [facility] [address] [id number] [address] [place] [address], [place] [address] May, [facility] [address] [id number] [address] [place] [address], [place] [address] May, [facility] [address] [id number] [address] [place] [address], [place] [address] Apr, [facility] [address] [id number] [address] [place] [address], [place] [address] Apr, [facility] [address] [id number] [address] [place] [address], [place] [address] Apr, [facility] [address] [id number] [address] [place] [address], [place] [address] Apr, [facility] [address] [id number] [address] [place] [address], [place] [address] Apr, [facility] [address] [id number] [address] [place] [address], [place] [address] Apr, [facility] [address] [id number] [address] [place] [address], [place] [address] Apr, [facility] [address] [id number] [address] [place] [address], [place] [address] Apr, [facility] [address] [id number] [address] [place] [address], [place] [address] Apr, [facility] [address] [id number] [address] [place] [address], [place] [address] Apr, [facility] [address] [id number] [address] [place] [address], [place] [address] Apr, [facility] [address] [id number] [address] [place] [address], [place] [address] Apr, [facility] [address] [id number] [address] [place] [address], [place] [address] Mar, [facility] [address] [id number] [address] [place] [address], [place] [address] Mar, [facility] [address] [id number] [address] [place] [address], [place] [address] Mar, [facility] [address] [id number] [address] [place] [address], [place] [address] Mar, [facility] [address] [id number] [address] [place] [address], [place] [address] Mar, [facility] [address] [id number] [address] [place] [address], [place] [address] Mar, [facility] [address] [id number] [address] [place] [address], [place] [address] Feb, [facility] [address] [id number] [address] [place] [address], [place] [address] Feb, [facility] [address] [id number] [address] [place] [address], [place] [address] Feb, [facility] [address] [id number] [address] [place] [address], [place] [address] Feb, [facility] [address] [id number] [address] [place] [address], [place] [address] 14 Jan, 2014 [facility] [address] [id number] [address] [place] [address], [place] [address] 14 Jan, 2014 [facility] [address] [id number] [address] [place] [address], [place] [address] 14 Jan, 2014 [facility] [address] [id number] [address] [place] [address], [place] [address] 14 Jan, 2014 [facility] [address] [id number] [address] [place] [address], [place] [address] 22 Dec, 2013 [facility] [address] [id number] [address] [place] [address], [place] [address] 22 Dec, 2013 [facility] [address] [id number] [facility] [place] [address] 15 Dec, 2013 [facility] [address] [id number] [address] [place] [address], [place] [address] Dec, [facility] [address] [id number] [address] [place] [address], [place] [address] Nov, [facility] [address] [id number] [address] [place] [address], [place] [address] Nov, [facility] [address] [id number] [address] [place] [address], [place] [address] Nov, [facility] [address] [id number] [address] [place] [address], [place] [address] Nov, [facility] [address] [id number] [address] [place] [address], [place] [address] Nov, [facility] [address] [id number] [address] [place] [address], [place] [address] Nov, [facility] [address] [id number] [address] [place] [address], [place] [address] Nov, [facility] [facility] [address] [id number] [address] [place] [address], [place] [address] Oct, [facility] [address] [id number] [address] [place] [address], [place] [address] Oct, [facility] [address] [id number] [address] [place] [address], [place] [address] Oct, [facility] [address] [id number] [address] [place] [address], [place] [address] Oct, [facility] [address] [id number] [address] [place] [address], [place] [address] Oct, [facility] [address] [id number] [address] [place] [address], [place] [address] Oct, [facility] [address] [id number] [address] [place] [address], [place] [address] Oct, [facility] [address] [id number] [address] [place] [address], [place] [address] Sep, [facility] [address] [id number] [address] [place] [address], [place] [address] Sep, [facility] [address] [id number] [address] [place] [address], [place] [address] Sep, [facility] [address] [id number] [address] [place] [address], [place] [address] Sep, [facility] [address] [id number] [address] [place] [address], [place] [address] Sep, [facility] [address] [id number] [address] [place] [address], [place] [address] Jul, [facility] [address] [id number] [address] [place] [address], [place] [address] Jul, [facility] [address] [id number] [address] [place] [address], [place] [address] Jul, [facility] [address] [id number] [address] [place] [address], [place] [address] Jul, [facility] [address] [id number] [address] [place] [address], [place] [address] Jul, [facility] [address] [id number] [address] [place] [address], [place] [address] Jul, [facility] [address] [id number] [address] [place] [address], [place] [address] Jul, [facility] [address] [id number] [address] [place] [address], [place] [address] Jul, [facility] [address] [id number] [address] [place] [address], [place] [address] Jul, [facility] [address] [id number] [address] [place] [address], [place] [address] Jul, [facility] [address] [id number] [address] [place] [address], [place] [address] Jul, [facility] [address] [id number] [address] [place] [address], [place] [address] Jul, [facility] [address] [id number] [address] [place] [address], [place] [address] Jun, [facility] [address] [id number] [address] [place] [address], [place] [address] Jun, [facility] [address] [id number] [address] [place] [address], [place] [address] Jun, [facility] [address] [id number] [address] [place] [address], [place] [address] Jun, [facility] [address] [id number] [address] [place] [address], [place] [address] Jun, [facility] [address] [id number] [address] [place] [address], [place] [address] Jun, [facility] [address] [id number] [address] [place] [address], [place] [address] Jun, [facility] [address] [id number] [address] [place] [address], [place] [address] Jun, [facility] [address] [id number] [address] [place] [address], [place] [address] May, [facility] [address] [id number] [address] [place] [address], [place] [address] May, [facility] [address] [id number] [address] [place] [address], [place] [address] May, [facility] [address] [id number] [address] [place] [address], [place] [address] May, [facility] [address] [id number] [address] [place] [address], [place] [address] May, [facility] [address] [id number] [address] [place] [address], [place] [address] May, [facility] [address] [id number] [address] [place] [address], [place] [address] May, [facility] [address] [id number] [address] [place] [address], [place] [address] May, [facility] [address] [id number] [address] [place] [address], [place] [address] Apr, [facility] [address] [id number] [address] [place] [address], [place] [address] Apr, [facility] [address] [id number] [address] [place] [address], [place] [address] Apr, [facility] [address] [id number] [address] [place] [address], [place] [address] Apr, [facility] [address] [id number] [address] [place] [address], [place] [address] Mar, [facility] [address] [id number] [address] [place] [address], [place] [address] Mar, [facility] [address] [id number] [address] [place] [address], [place] [address] Mar, [facility] [address] [id number] [address] [place] [address], [place] [address] Feb, [facility] [address] [id number] [address] [place] [address], [place] [address] Feb, [facility] [address] [id number] [address] [place] [address], [place] [address] Feb, [facility] [address] [id number] [address] [place] [address], [place] [address] Feb, [facility] [address] [id number] [address] [place] [address], [place] [address] Feb, [facility] [address] [id number] [address] [place] [address], [place] [address] Feb, [facility] [address] [id number] [address] [place] [address], [place] [address] Jan, [facility] [address] [id number] [address] [place] [address], [place] [address] Jan, [facility] [address] [id number] [address] [place] [address], [place] [address] Jan, [facility] [address] [id number] [address] [place] [address], [place] [address] Jan, [facility] [address] [id number] [address] [place] [address], [place] [address] Jan, [facility] [address] [id number] [address] [place] [address], [place] [address] Jan, [facility] [address] [id number] [address] [place] [address], [place] [address] Jan, [facility] [address] [id number] [address] [place] [address], [place] [address] Dec, [facility] [address] [id number] [address] [place] [address], [place] [address] 16 Dec, 2012 [facility] [address] [id number] [address] [place] [address], [place] [address] 10 Dec, 2012 [facility] [address] [id number] [address] [place] [address], [place] [address] 05 Dec, 2012 [facility] [address] [id number] [address] [place] [address], [place] [address] Nov, [facility] [address] [id number] [address] [place] [address], [place] [address] Nov, [facility] [address] [id number] [address] [place] [address], [place] [address] Nov, [facility] [address] [id number] [address] [place] [address], [place] [address] Nov, [facility] [address] [id number] [address] [place] [address], [place] [address] Nov, [facility] [address] [id number] [address] [place] [address], [place] [address] Nov, [facility] [address] [id number] [address] [place] [address], [place] [address] Nov, [facility] [address] [id number] [address] [place] [address], [place] [address] Oct, [facility] [address] [id number] [address] [place] [address], [place] [address] Oct, [facility] [address] [id number] [address] [place] [address], [place] [address] Oct, [facility] [address] [id number] [address] [place] [address], [place] [address] Oct, [facility] [address] [id number] [address] [place] [address], [place] [address] Oct, [facility] [address] [id number] [address] [place] [address], [place] [address] Oct, [facility] [address] [id number] [address] [place] [address], [place] [address] Oct, [facility] [address] [id number] [address] [place] [address], [place] [address] Oct, [facility] [address] [id number] [address] [place] [address], [place] [address] Sep, [facility] [facility] [id number] [place] [address] [id number] August, [facility] [address] [id number] [address] [place] [address], [place] [address] August, [facility] [address] [id number] [address] [place] [address], [place] [address] Jul, [facility] [address] [id number] [address] [place] [address], [place] [address] Jul, [facility] [address] [id number] [address] [place] [address], [place] [address] Jul, 2012 [facility] [address] [id number] [address] [place] [address], [place] [address] 22 Jul, 2012 [facility] [address] [id number] [address] [place] [address], [place] [address] 18 Jul, 2012 [facility] [address] [id number] [address] [place] [address], [place] [address] 17 Jul, 2012 [facility] [address] [id number] [address] [place] [address], [place] [address] 16 Jul, 2012 [facility] [address] [id number] [address] [place] [address], [place] [address] Jun, [facility] [address] [id number] [address] [place] [address], [place] [address] Jun, [facility] [address] [id number] [address] [place] [address], [place] [address] Jun, [facility] [address] [id number] [address] [place] [address], [place] [address] Jun, [facility] [address] [id number] [address] [place] [address], [place] [address] Jun, [facility] [address] [id number] [address] [place] [address], [place] [address] May, [facility] [address] [id number] [address] [place] [address], [place] [address] 18 May, 2012 [facility] [address] [id number] [address] [place] [address], [place] [address] May, [facility] [address] [id number] [address] [place] [address], [place] [address] 15 Apr, 2012 [facility] [address] [id number] [address] [place] [address], [place] [address] 14 Apr, 2012 [facility] [address] [id number] [address] [place] [address], [place] [address] 07 Apr, 2012 [facility] [address] [id number] [address] [place] [address], [place] [address] 31 Mar, 2012 [facility] [address] [id number] [address] [place] [address], [place] [address] 31 Mar, 2012 [facility] [address] [id number] [address] [place] [address], [place] [address] Mar, [facility] [address] [id number] [address] [place] [address], [place] [address] Mar, [facility] [address] [id number] [address] [place] [address], [place] [address] Mar, [facility] [address] [id number] [address] [place] [address], [place] [address] Mar, [facility] [address] [id number] [address] [place] [address], [place] [address] Feb, [facility] [address] [id number] [address] [place] [address], [place] [address] Feb, [facility] [address] [id number] [address] [place] [address], [place] [address] Jan, [facility] [address] [id number] [address] [place] [address], [place] [address] Jan, [facility] [address] [id number] [address] [place] [address], [place] [address] Dec, [facility] [address] [id number] [address] [place] [address], [place] [address] Nov, [facility] [address] [id number] [address] [place] [address], [place] [address] Nov, [facility] [address] [id number] [address] [place] [address], [place] [address] Nov, [facility] [address] [id number] [address] [place] [address], [place] [address] Nov, [facility] [address] [id number] [address] [place] [address], [place] [address] Oct, [facility] [address] [id number] [address] [place] [address], [place] [address] Oct, [facility] [address] [id number] [address] [place] [address], [place] [address] Oct, [facility] [address] [id number] [address] [place] [address], [place] [address] Sep, [facility] [address] [id number] [address] [place] [address], [place] [address] Sep, [facility] [address] [id number] [address] [place] [address], [place] [address] Sep, [facility] [address] [id number] [address] [place] [address], [place] [address] August, [facility] [address] [id number] [address] [place] [address], [place] [address] August, [facility] [address] [id number] [address] [place] [address], [place] [address] Jul, [facility] [address] [id number] [address] [place] [address], [place] [address] Jul, [facility] [address] [id number] [address] [place] [address], [place] [address] Jul, [facility] [address] [id number] [address] [place] [address], [place] [address] Jul, [facility] [address] [id number] [address] [place] [address], [place] [address] Jun, [facility] [address] [id number] [address] [place] [address], [place] [address] May, [facility] [address] [id number] [address] [place] [address], [place] [address] Apr, [facility] [address] [id number] [address] [place] [address], [place] [address] Apr, [facility] [address] [id number] [address] [place] [address], [place] [address] Apr, [facility] [address] [id number] [address] [place] [address], [place] [address] Apr, [facility] [address] [id number] [address] [place] [address], [place] [address] Apr, [facility] [address] [id number] [address] [place] [address], [place] [address] Apr, [facility] [address] [id number] [address] [place] [address], [place] [address] Mar, [facility] [address] [id number] [address] [place] [address], [place] [address] Mar, [facility] [address] [id number] [address] [place] [address], [place] [address] Feb, [facility] [address] [id number] [address] [place] [address], [place] [address] Feb, [facility] [address] [id number] [address] [place] [address], [place] [address] Feb, [facility] [address] [id number] [address] [place] [address], [place] [address] Feb, [facility] [address] [id number] [address] [place] [address], [place] [address] Jan, [facility] [address] [id number] [address] [place] [address], [place] [address] Jan, [facility] [address] [id number] [address] [place] [address] Jan, [facility] [address] [id number] [address] [place] [address], [place] [address] Jan, [facility] [address] [id number] [address] [place] [address], [place] [address] Nov, [facility] [address] [id number] [address] [place] [address], [place] [address] Mar, [facility] [address] [id number] [address] [place] [address], [place] [address] 02 Mar, 2010 [facility] [address] [id number] [address] [place] [address], [place] [address] 30 Feb, 2010 [facility] [address] [id number] [address] [place] [address], [place] [address] 15 Feb, 2010 [facility] [address] [id number] [address] [place] [address], [place] [address] Jan, [facility] [address] [id number] [address] [place] [address], [place] [address] 19 Jan, 2010 [facility] [address] [id number] [address] [place] [address], [place] [address] 15 Sep, 2009 [facility] [address] [id number] [address] [place] [address], [place] [address] 16 May, 2009 [facility] [address] [id number] [address] [place] [address], [place] [address] Apr, [facility] [address] [id number] [address] [place] [address], [place] [address] Mar, [facility] [address] [id number] [address] [place] [address], [place] [address] 15 Feb, 2009 [facility] [address] [id number] [address] [place] [id number] 10 Feb, 2009 [facility] [address] [id number] [address] [place] [id number] 10 Feb, 2009 [facility] [address] [id number] [address] [place] [address], [place] [address] 22 Jan, 2009 [facility] [address] [id number] [address] [place] [address], [place] [address] 13 Jan, 2009 [facility] [address] [id number] [address] [place] [id number] 13 Jan, 2009 [facility] [address] [id number] [address] [place] [id number] Jan, [facility] [address] [facility] [id number] [address] [place] [address] August, IMMUNIZATIONS No Known Immunizations SOCIAL HISTORY Never Assessed REASON FOR VISIT [facility]MR[facility] PLAN OF CARE VITAL SIGNS MEDICATIONS Unknown [...] age 6 Hospitalization History surgery Hospitalization History [facility], [facility] treatment few times for BH
--- OUTSIDE RECORDS SUMMARY | 2019-09-29 10:56 | XMS REPORT ---
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 Active 01763226 Problem Open-angle glaucoma of both eyes, unspecified glaucoma stage, unspecified open-angle glaucoma type H40.10X0 Acti ve 38951880 Problem Adjustment disorder, unspecified type F43.20 Active 48675418 Problem Obstructive sleep apnea G47.33 Active 69200687 Problem Hypertensive retinopathy of both eyes H35.033 Active 8990351 Problem Type 2 diabetes mellitus with complication E11.8 Active 98826662 Problem Essential hypertension I10 Active 33501670 Problem Diabetes E11.9 Active 20864447 Problem Bipolar disorder, in partial remission, most rec ent episode manic F31.73 Active 25485506 Problem Intermittent explosive disorder in adult F63.81 Active 57376398 Problem Other diabetic neurological complication associated with type 2 diabetes mellitus E11.49 Active 071077976 Problem Depression F32.9 Active 98071503 Problem Neuropathy G62.9 Active 706001792 Problem Intermittent explosive disorder F63.81 Active 61715284 Problem Bipolar disorder, unspecified F31.9 Active 43431472 Problem Mild intellectual disability F70 A ctive 48414951 Problem Reactive airway disease, mild intermittent, uncomplicated J45.20 Active 595393683 Problem Gastroesophageal reflux disease without esophagitis K21.9 Active 302110988 ALLERGIES No Information ENCOUNTERS Encounter Location Date Diagnosis [facility] [address] [facility] [id number] [address] [place] [phone] Oct, [facility] [address] [facility] [place] [id number] [address] [place] [address] August, [facility] [address] [facility] [id number] [address] [place] [address] [id number] August, [facility] [address] [place] [address] Jul, Onychomycosis B35.1 ; Other diabetic neurological complication associated with type 2 diabetes mellitus E11.49 and Tinea pedis of both feet B35.3 [facility] [address] [place] [id number] [address] [place] [address] [id number] Jul, Caries K02.9 [facility] [address] [facility] [place] [id number] [address] [place] [address] Jul, Type 2 diabetes mellitus wit h complication E11.8 ; Tobacco abuse Z72.0 and Bipolar disorder, unspecified F31.9 [facility] [address] [place] [id number] [address] [place] [address] Jun, [facility] [address] [place] [id number] [address] [place] [address] [id number] Jun, Dental examination Z01.20 an d Oral health maintenance status requiring routine preventive dental care K08.9 [facility] [address] [place] [address] May, Bilateral impacted cerumen H 61.23 [facility] [address] [place] [id number] [address] [place] [address] Apr, Bipolar disorder, unspecifie d F31.9 ; Intermittent explosive disorder in adult F63.81 ; Type 2 diabetes mellitus with complication E11.8 ; Tobacco abuse Z72.0 and Colon cancer screening Z12.11 [facility] [address] [facility] [place] [id number] [address] [place] [address] Apr, Onychomycosis B35.1 and Othe r diabetic neurological complication associated with type 2 diabetes mellitus E11.49 [facility] [address] [place] [id number] [address] [place] [address] Apr, Intermittent explosive disor salvatore in adult F63.81 ; Bipolar disorder, unspecified F31.9 and Mild intellectual disability F70 [facility] [address] [facility] [place] [id number] [address] [place] [address] 03 Mar, 2018 Diabetes E11.9 [facility] [address] [facility] [place] [id number] [address] [place] [address] Jan, Encounter for immunization Z 23 [facility] [address] [facility] [place] [id number] [address] [place] [phone] 12 Jan, 2018 Tinea pedis of both feet B35 .3 ; Other diabetic neurological complication associated with type 2 diabetes mellitus E11.49 and Onychomycosis B35.1 [facility] [address] [facility] [place] [id number] [address] [place] [phone] Nov, Type 2 diabetes mellitus wit h complication E11.8 [facility] [address] [place] [id number] [address] [place] [address] Nov, [facility] [address] [place] [id number] [address] [place] [address] Oct, Intermittent explosive disor salvatore in adult F63.81 ; Bipolar disorder, unspecified F31.9 and Mild intellectual disability F70 [facility] [address] [facility] [place] [id number] [address] [place] [address] Oct, [facility] [address] [place] [id number] [address] [place] [address] [id number] Oct, Dental examination Z01.20 [facility] [address] [facility] [place] [id number] [address] [place] [address] Oct, Onychomycosis B35.1 and Othe r diabetic neurological complication associated with type 2 diabetes mellitus E11.49 [facility] [address] [facility] [place] [id number] [address] [place] [address] Sep, Type 2 diabetes mellitus wit h complication E11.8 and Colon cancer screening Z12.11 [facility] [address] [facility] [place] [id number] [address] [place] [phone] 18 Sep, 2017 Type 2 diabetes mellitus wit h complication E11.8 ; Colon cancer screening Z12.11 and Neuropathy G62.9 [facility] [address] [facility] [place] [id number] [address] [place] [address] August, Diabetes E11.9 [facility] [address] [facility] [id number] [address] [place] [address] [id number] Jul, Dental examination Z01.20 [facility] [address] [facility] [place] [id number] [address] [place] [address] May, Mild intellectual disability F70 [place] [address] [facility] [place] [id number] [address] [place] [address] May, Mild intellectual disability F70 ; High risk medication use Z79.899 ; Intermittent explosive disorder in adult F63.81 and Bipolar disorder, unspecified F31.9 [place] [id number] [address] May, [facility] [address] [place] [id number] [address] [place] [address] May, [facility] [address] [place] [id number] [address] [place] [address] Apr, Type 2 diabetes mellitus wit h complication E11.8 ; Mild intellectual disability F70 ; Gastroesophageal reflux disease without esophagitis K21.9 ; Reactive airway disease, mild intermittent, uncomplicated J45.20 and Tobacco abuse Z72.0 [place] [address] [place] [address] Apr, High risk medication use Z79 .899 ; Mild intellectual disability F70 ; Intermittent explosive disorder in adult F63.81 and Bipolar disorder, unspecified F31.9 [facility] [address] [place] [id number] [address] [place] [address] [id number] Mar, Dental examination Z01.20 [facility] [address] [facility] [id number] [address] [place] [address] [id number] Mar, Encounter for dental exam an d cleaning w/o abnormal findings Z01.20 [facility] [address] [id number] [address] [place] [address] 12 Jan, 2017 [facility] [address] [id number] [address] [place] [address] Jan, [facility] [address] [id number] [address] [place] [address] 10 Jan, 2017 Mild intellectual disability F70 ; Bipolar disorder, unspecified F31.9 and Intermittent explosive disorder in adult F63.81 [facility] [address] [id number] [address] [place] [phone] 02 Jan, 2017 Diabetes E11.9 [facility] [address] [id number] [address] [place] [address] [id number] 13 Dec, 2016 Encounter for dental examina tion and cleaning without abnormal findings Z01.20 [facility] [address] [id number] [address] [place] [phone] 12 Dec, 2016 Bipolar disorder, unspecifie d F31.9 ; Intermittent explosive disorder in adult F63.81 and Mild intellectual disability F70 [facility] [address] [id number] [address] [place] [address] Nov, Diabetes E11.9 [facility] [address] [id number] [address] [place] [address] Nov, [facility] [address] [id number] [address] [place] [address] Nov, Diabetes E11.9 and Colon can cer screening Z12.[id number] [place] [address] [id number] 21 Sep, 2016 Dental examination Z01.20 [facility] [address] [id number] [address] [place] [address] [id number] 21 Sep, 2016 Encounter for dental examina tion and cleaning without abnormal findings Z01.20 [facility] [address] [id number] [address] [place] [phone] 13 Sep, 2016 Bipolar disorder, unspecifie d F31.9 [facility] [address] [id number] [address] [place] [phone] 12 Sep, 2016 Bipolar disorder, unspecifie d F31.9 [facility] [address] [id number] [address] [place] [phone] Jul, [facility] [address] [facility] [place] [id number] [address] [place] [phone] 13 Jul, 2016 Type 2 diabetes mellitus wit h complication E11.8 [place] [id number] [facility] [id number] [id number] 15 Jun, 2016 Dental examination Z01.20 [facility] [address] [id number] [address] [place] [address] [phone] Jun, Encounter for dental examina tion and cleaning without abnormal findings Z01.20 [place] [id number] [facility] [place] [id number] [address] [place] [phone] Apr, Sports physical Z02.5 [facility] [address] [facility] [place] [id number] [address] [place] [phone] 14 Mar, 2016 Bipolar disorder, in partial remission, most recent episode manic F31.73 and Intermittent explosive disorder in adult F63.81 [facility] [address] [facility] [place] [id number] [address] [place] [phone] 08 Mar, 2016 [facility] [address] [facility] [place] [id number] [address] [place] [phone] 06 Mar, 2016 Diabetes E11.9 [facility] [address] [id number] [address] [place] [address] [id number] Feb, Encounter for dental examina tion and cleaning without abnormal findings Z01.20 [facility] [address] [id number] [address] [place] [phone] 22 Dec, 2015 Nocturnal hypoxemia G47.34 a nd Encounter for immunization Z23 [facility] [address] [id number] [address] [place] [phone] 15 Dec, 2015 [facility] [address] [facility] [place] [place] [id number] [address] [place] [phone] Dec, [facility] [address] [facility] [place] [id number] [address] [place] [address] Dec, Bipolar disorder, unspecifie d F31.9 [facility] [address] [id number] [address] [place] [address] [phone] Oct, Encounter for dental examina tion and cleaning without abnormal findings Z01.20 [facility] [address] [id number] [id number] 13 Oct, 2015 Dental examination Z01.20 [facility] [address] [facility] [place] [id number] [address] [place] [phone] 07 Oct, 2015 Diabetes E11.9 [facility] [address] [place] [id number] [place] [address] Oct, Diabetes E11.9 ; Reactive ai rway disease, mild intermittent, uncomplicated J45.20 and Tobacco abuse Z72.0 [facility] [address] [place] [address] Sep, Bipolar disorder, unspecifie d F31.9 and Depression F32.9 [facility] [address] [place] [id number] [address] [place] [phone] Sep, [facility] [address] [phone] August, Tinea pedis of both feet B35 .3 and DM w/o complication type II, uncontrolled E11.65 [facility] [address] [facility] [id number] [address] [place] [phone] Jul, [facility] [address] [phone] Jul, [facility] [address] [facility] [place] [id number] [address] [place] [phone] Jul, Obstructive sleep apnea G47. 33 [facility] [address] [place] [id number] [address] [place] [address] Jun, Diabetes E11.9 [facility] [address] [id number] Jun, [facility] [address] [address] Jun, [place] [address] [id number] Jun, Bipolar disorder, unspecifie d F31.9 and Mental retardation F79 [place] [address] [address] Apr, [place] [address] [address] Feb, Diabetes E11.9 ; Encounter f or immunization Z23 ; Cough R05 and Nicotine abuse Z72.0 [place] [address] [address] Jan, Bipolar disorder, unspecifie d F31.9 and Diabetes mellitus without mention of complication, type II or unspecified type, uncontrolled 250.02 [place] [address] [address] Jan, [place] [address] [address] Dec, Reactive airway disease 493. 90 and Enuresis 788.30 [place] [address] [id number] Dec, [place] [address] [address] Nov, [place] [address] [address] Nov, [place] [address] [address] Nov, Annual physical exam V70.0 ; Urinary incontinence 788.30 ; Diabetes 250.00 and Hypertension 401.9 [facility] [address] [id number] [address] [place] [id number] Oct, Diabetes mellitus without me ntion of complication, type II or unspecified type, uncontrolled 250.02 [facility] [address] [id number] [address] [place] [address] Oct, Diabetes mellitus without me ntion of complication, type II or unspecified type, uncontrolled 250.02 [facility] [address] [id number] [address] [place] [address] Oct, Diabetes mellitus without me ntion of complication, type II or unspecified type, uncontrolled 250.02 [facility] [address] [id number] [address] [place] [phone] Oct, [facility] [address] [id number] [address] [place] [address] Oct, [facility] [address] [id number] [address] [place] [address] Oct, Bipolar disorder, unspecifie d 296.80 [facility] [id number] [place] [address] [id number] Sep, Dental examination V72.2 [facility] [address] [id number] [address] [place] [address] August, [facility] [address] [id number] [place] [address] [id number] August, Dental examination V72.2 [facility] [address] [id number] [address] [place] [address] August, [facility] [address] [id number] [address] [place] [phone] Jul, [facility] [address] [id number] [address] [place] [phone] Jul, [facility] [address] [facility] [place] [id number] [address] [place] [address] Jun, [facility] [address] [id number] [address] [place] [address], [place] [address] 17 Jun, 2014 [facility] [address] [id number] [address] [place] [address], [place] [address] 17 Jun, 2014 [facility] [address] [id number] [address] [place] [address], [place] [address] 17 Jun, 2014 [facility] [address] [id number] [address] [place] [address], [place] [address] 23 May, 2014 [facility] [address] [id number] [address] [place] [address], [place] [address] 23 May, 2014 [facility] [address] [id number] [address] [place] [address], [place] [address] 16 May, 2014 [facility] [address] [id number] [address] [place] [address], [place] [address] 16 May, 2014 [facility] [address] [id number] [address] [place] [address], [place] [address] 16 May, 2014 [facility] [address] [id number] [address] [place] [address], [place] [address] 16 May, 2014 [facility] [address] [id number] [address] [place] [address], [place] [address] 16 May, 2014 [facility] [address] [id number] [address] [place] [address], [place] [address] 16 May, 2014 [facility] [address] [id number] [address] [place] [address], [place] [address] 16 May, 2014 [facility] [address] [id number] [address] [place] [address], [place] [address] 16 May, 2014 [facility] [address] [id number] [address] [place] [address], [place] [address] 16 May, 2014 [facility] [address] [id number] [address] [place] [address], [place] [address] 16 May, 2014 [facility] [address] [id number] [address] [place] [address], [place] [address] May, [facility] [address] [id number] [address] [place] [address], [place] [address] May, [facility] [address] [id number] [address] [place] [address], [place] [address] May, [facility] [address] [id number] [address] [place] [address], [place] [address] Apr, [facility] [address] [id number] [address] [place] [address], [place] [address] Apr, [facility] [address] [id number] [address] [place] [address], [place] [address] Apr, [facility] [address] [id number] [address] [place] [address], [place] [address] Apr, [facility] [address] [id number] [address] [place] [address], [place] [address] Apr, [facility] [address] [id number] [address] [place] [address], [place] [address] Apr, [facility] [address] [id number] [address] [place] [address], [place] [address] Apr, [facility] [address] [id number] [address] [place] [address], [place] [address] Apr, [facility] [address] [id number] [address] [place] [address], [place] [address] Apr, [facility] [address] [id number] [address] [place] [address], [place] [address] Apr, [facility] [address] [id number] [address] [place] [address], [place] [address] Apr, [facility] [address] [id number] [address] [place] [address], [place] [address] Apr, [facility] [address] [id number] [address] [place] [address], [place] [address] Mar, [facility] [address] [id number] [address] [place] [address], [place] [address] Mar, [facility] [address] [id number] [address] [place] [address], [place] [address] Mar, [facility] [address] [id number] [address] [place] [address], [place] [address] Mar, [facility] [address] [id number] [address] [place] [address], [place] [address] Mar, [facility] [address] [id number] [address] [place] [address], [place] [address] Mar, [facility] [address] [id number] [address] [place] [address], [place] [address] Feb, [facility] [address] [id number] [address] [place] [address], [place] [address] Feb, [facility] [address] [id number] [address] [place] [address], [place] [address] Feb, [facility] [address] [id number] [address] [place] [address], [place] [address] Feb, [facility] [address] [id number] [address] [place] [address], [place] [address] 14 Jan, 2014 [facility] [address] [id number] [address] [place] [address], [place] [address] 14 Jan, 2014 [facility] [address] [id number] [address] [place] [address], [place] [address] 14 Jan, 2014 [facility] [address] [id number] [address] [place] [address], [place] [address] 14 Jan, 2014 [facility] [address] [id number] [address] [place] [address], [place] [address] 22 Dec, 2013 [facility] [address] [id number] [address] [place] [address], [place] [address] 22 Dec, 2013 [facility] [address] [id number] [facility] [place] [address] 15 Dec, 2013 [facility] [address] [id number] [address] [place] [address], [place] [address] Dec, [facility] [address] [id number] [address] [place] [address], [place] [address] Nov, [facility] [address] [id number] [address] [place] [address], [place] [address] Nov, [facility] [address] [id number] [address] [place] [address], [place] [address] Nov, [facility] [address] [id number] [address] [place] [address], [place] [address] Nov, [facility] [address] [id number] [address] [place] [address], [place] [address] Nov, [facility] [address] [id number] [address] [place] [address], [place] [address] Nov, [facility] [address] [id number] [address] [place] [address], [place] [address] Nov, [facility] [address] [id number] [address] [place] [address], [place] [address] Oct, [facility] [address] [id number] [address] [place] [address], [place] [address] Oct, [facility] [address] [id number] [address] [place] [address], [place] [address] Oct, [facility] [address] [id number] [address] [place] [address], [place] [address] Oct, [facility] [address] [id number] [address] [place] [address], [place] [address] Oct, [facility] [address] [id number] [address] [place] [address], [place] [address] Oct, [facility] [address] [id number] [address] [place] [address], [place] [address] Oct, [facility] [address] [id number] [address] [place] [address], [place] [address] Sep, [facility] [address] [id number] [address] [place] [address], [place] [address] Sep, [facility] [address] [id number] [address] [place] [address], [place] [address] Sep, [facility] [address] [id number] [address] [place] [address], [place] [address] Sep, [facility] [address] [id number] [address] [place] [address], [place] [address] Sep, [facility] [address] [id number] [address] [place] [address], [place] [address] Jul, [facility] [address] [id number] [address] [place] [address], [place] [address] Jul, [facility] [address] [id number] [address] [place] [address], [place] [address] Jul, [facility] [address] [id number] [address] [place] [address], [place] [address] Jul, [facility] [address] [id number] [address] [place] [address], [place] [address] Jul, [facility] [address] [id number] [address] [place] [address], [place] [address] Jul, [facility] [address] [id number] [address] [place] [address], [place] [address] Jul, [facility] [address] [id number] [address] [place] [address], [place] [address] Jul, [facility] [address] [id number] [address] [place] [address], [place] [address] Jul, [facility] [address] [id number] [address] [place] [address], [place] [address] Jul, [facility] [address] [id number] [address] [place] [address], [place] [address] Jul, [facility] [address] [id number] [address] [place] [address], [place] [address] Jul, [facility] [address] [id number] [address] [place] [address], [place] [address] Jun, [facility] [address] [id number] [address] [place] [address], [place] [address] Jun, [facility] [address] [id number] [address] [place] [address], [place] [address] Jun, [facility] [address] [id number] [address] [place] [address], [place] [address] Jun, [facility] [address] [id number] [address] [place] [address], [place] [address] Jun, [facility] [address] [id number] [address] [place] [address], [place] [address] Jun, [facility] [address] [id number] [address] [place] [address], [place] [address] Jun, [facility] [address] [id number] [address] [place] [address], [place] [address] Jun, [facility] [address] [id number] [address] [place] [address], [place] [address] May, [facility] [address] [id number] [address] [place] [address], [place] [address] May, [facility] [address] [id number] [address] [place] [address], [place] [address] May, [facility] [address] [id number] [address] [place] [address], [place] [address] May, [facility] [address] [id number] [address] [place] [address], [place] [address] May, [facility] [address] [id number] [address] [place] [address], [place] [address] May, [facility] [address] [id number] [address] [place] [address], [place] [address] May, [facility] [address] [id number] [address] [place] [address], [place] [address] May, [facility] [address] [id number] [address] [place] [address], [place] [address] Apr, [facility] [address] [id number] [address] [place] [address], [place] [address] Apr, [facility] [address] [id number] [address] [place] [address], [place] [address] Apr, [facility] [address] [id number] [address] [place] [address], [place] [address] Apr, [facility] [address] [id number] [address] [place] [address], [place] [address] Mar, [facility] [address] [id number] [address] [place] [address], [place] [address] Mar, [facility] [address] [id number] [address] [place] [address], [place] [address] Mar, [facility] [address] [id number] [address] [place] [address], [place] [address] Feb, [facility] [address] [id number] [address] [place] [address], [place] [address] Feb, [facility] [address] [id number] [address] [place] [address], [place] [address] Feb, [facility] [address] [id number] [address] [place] [address], [place] [address] Feb, [facility] [address] [id number] [address] [place] [address], [place] [address] Feb, [facility] [address] [id number] [address] [place] [address], [place] [address] Feb, [facility] [address] [id number] [address] [place] [address], [place] [address] Jan, [facility] [address] [id number] [address] [place] [address], [place] [address] Jan, [facility] [address] [id number] [address] [place] [address], [place] [address] Jan, [facility] [address] [id number] [address] [place] [address], [place] [address] Jan, [facility] [address] [id number] [address] [place] [address], [place] [address] Jan, [facility] [address] [id number] [address] [place] [address], [place] [address] Jan, [facility] [address] [id number] [address] [place] [address], [place] [address] Jan, [facility] [address] [id number] [address] [place] [address], [place] [address] Dec, [facility] [address] [id number] [address] [place] [address], [place] [address] 16 Dec, 2012 [facility] [address] [id number] [address] [place] [address], [place] [address] 10 Dec, 2012 [facility] [address] [id number] [address] [place] [address], [place] [address] 05 Dec, 2012 [facility] [address] [id number] [address] [place] [address], [place] [address] Nov, [facility] [address] [id number] [address] [place] [address], [place] [address] Nov, [facility] [address] [id number] [address] [place] [address], [place] [address] Nov, [facility] [address] [id number] [address] [place] [address], [place] [address] Nov, [facility] [address] [id number] [address] [place] [address], [place] [address] Nov, [facility] [address] [id number] [address] [place] [address], [place] [address] Nov, [facility] [address] [id number] [address] [place] [address], [place] [address] Nov, [facility] [address] [id number] [address] [place] [address], [place] [address] Oct, [facility] [address] [id number] [address] [place] [address], [place] [address] Oct, [facility] [address] [id number] [address] [place] [address], [place] [address] Oct, [facility] [address] [id number] [address] [place] [address], [place] [address] Oct, [facility] [address] [id number] [address] [place] [address], [place] [address] Oct, [facility] [address] [id number] [address] [place] [address], [place] [address] Oct, [facility] [address] [id number] [address] [place] [address], [place] [address] Oct, [facility] [address] [id number] [address] [place] [address], [place] [address] Oct, [facility] [address] [id number] [address] [place] [address], [place] [address] Sep, [facility] [id number] [place] [id number] August, [facility] [address] [id number] [address] [place] [address], [place] [address] August, [facility] [address] [id number] [address] [place] [address], [place] [address] Jul, [facility] [address] [id number] [address] [place] [address], [place] [address] Jul, [facility] [address] [id number] [address] [place] [address], [place] [address] Jul, 2012 [facility] [address] [id number] [address] [place] [address], [place] [address] 22 Jul, 2012 [facility] [address] [id number] [address] [place] [address], [place] [address] 18 Jul, 2012 [facility] [address] [id number] [address] [place] [address], [place] [address] 17 Jul, 2012 [facility] [address] [id number] [address] [place] [address], [place] [address] 16 Jul, 2012 [facility] [address] [id number] [address] [place] [address], [place] [address] Jun, [facility] [address] [id number] [address] [place] [address], [place] [address] Jun, [facility] [address] [id number] [address] [place] [address], [place] [address] Jun, [facility] [address] [id number] [address] [place] [address], [place] [address] Jun, [facility] [address] [id number] [address] [place] [address], [place] [address] Jun, [facility] [address] [id number] [address] [place] [address], [place] [address] May, [facility] [address] [id number] [address] [place] [address], [place] [address] 18 May, 2012 [facility] [address] [id number] [address] [place] [address], [place] [address] May, [facility] [address] [id number] [address] [place] [address], [place] [address] 15 Apr, 2012 [facility] [address] [id number] [address] [place] [address], [place] [address] 14 Apr, 2012 [facility] [address] [id number] [address] [place] [address], [place] [address] 07 Apr, 2012 [facility] [address] [id number] [address] [place] [address], [place] [address] 31 Mar, 2012 [facility] [address] [id number] [address] [place] [address], [place] [address] 31 Mar, 2012 [facility] [address] [id number] [address] [place] [address], [place] [address] Mar, [facility] [address] [id number] [address] [place] [address], [place] [address] Mar, [facility] [address] [id number] [address] [place] [address], [place] [address] Mar, [facility] [address] [id number] [address] [place] [address], [place] [address] Mar, [facility] [address] [id number] [address] [place] [address], [place] [address] Feb, [facility] [address] [id number] [address] [place] [address], [place] [address] Feb, [facility] [address] [id number] [address] [place] [address], [place] [address] Jan, [facility] [address] [id number] [address] [place] [address], [place] [address] Jan, [facility] [address] [id number] [address] [place] [address], [place] [address] Dec, [facility] [address] [id number] [address] [place] [address], [place] [address] Nov, [facility] [address] [id number] [address] [place] [address], [place] [address] Nov, [facility] [address] [id number] [address] [place] [address], [place] [address] Nov, [facility] [address] [id number] [address] [place] [address], [place] [address] Nov, [facility] [address] [id number] [address] [place] [address], [place] [address] Oct, [facility] [address] [id number] [address] [place] [address], [place] [address] Oct, [facility] [address] [id number] [address] [place] [address], [place] [address] Oct, [facility] [address] [id number] [address] [place] [address], [place] [address] Sep, [facility] [address] [id number] [address] [place] [address], [place] [address] Sep, [facility] [address] [id number] [address] [place] [address], [place] [address] Sep, [facility] [address] [id number] [address] [place] [address], [place] [address] August, [facility] [address] [id number] [address] [place] [address], [place] [address] August, [facility] [address] [id number] [address] [place] [address], [place] [address] Jul, [facility] [address] [id number] [address] [place] [address], [place] [address] Jul, [facility] [address] [id number] [address] [place] [address], [place] [address] Jul, [facility] [address] [id number] [address] [place] [address], [place] [address] Jul, [facility] [address] [id number] [address] [place] [address], [place] [address] Jun, [facility] [address] [id number] [address] [place] [address], [place] [address] May, [facility] [address] [id number] [address] [place] [address], [place] [address] Apr, [facility] [address] [id number] [address] [place] [address], [place] [address] Apr, [facility] [address] [id number] [address] [place] [address], [place] [address] Apr, [facility] [address] [id number] [address] [place] [address], [place] [address] Apr, [facility] [address] [id number] [address] [place] [address], [place] [address] Apr, [facility] [address] [id number] [address] [place] [address], [place] [address] Apr, [facility] [address] [id number] [address] [place] [address], [place] [address] Mar, [facility] [address] [id number] [address] [place] [address], [place] [address] Mar, [facility] [address] [id number] [address] [place] [address], [place] [address] Feb, [facility] [address] [id number] [address] [place] [address], [place] [address] Feb, [facility] [address] [id number] [address] [place] [address], [place] [address] Feb, [facility] [address] [id number] [address] [place] [address], [place] [address] Feb, [facility] [address] [id number] [address] [place] [address], [place] [address] Jan, [facility] [address] [id number] [address] [place] [address], [place] [address] Jan, [facility] [address] [id number] [address] [place] [address] Jan, [facility] [address] [id number] [address] [place] [address], [place] [address] Jan, [facility] [address] [id number] [address] [place] [address], [place] [address] Nov, [facility] [address] [id number] [address] [place] [address], [place] [address] Mar, [facility] [address] [id number] [address] [place] [address], [place] [address] 02 Mar, 2010 [facility] [address] [id number] [address] [place] [address], [place] [address] 30 Feb, 2010 [facility] [address] [id number] [address] [place] [address], [place] [address] 15 Feb, 2010 [facility] [address] [id number] [address] [place] [address], [place] [address] Jan, [facility] [address] [id number] [address] [place] [address], [place] [address] 19 Jan, 2010 [facility] [address] [id number] [address] [place] [address], [place] [address] 15 Sep, 2009 [facility] [address] [id number] [address] [place] [address], [place] [address] 16 May, 2009 [facility] [address] [id number] [address] [place] [address], [place] [address] Apr, [facility] [address] [id number] [address] [place] [address], [place] [address] Mar, [facility] [address] [id number] [address] [place] [address], [place] [address] 15 Feb, 2009 [facility] [address] [id number] [address] [place] [id number] 10 Feb, 2009 [facility] [address] [id number] [address] [place] [id number] 10 Feb, 2009 [facility] [address] [id number] [address] [place] [address], [place] [address] 22 Jan, 2009 [facility] [address] [id number] [address] [place] [address], [place] [address] 13 Jan, 2009 [facility] [address] [id number] [address] [place] [id number] 13 Jan, 2009 [facility] [address] [id number] [address] [place] [id number] Jan, [facility] [place] [address] [facility] [place] [id number] [address] [place] [address] August, IMMUNIZATIONS No Known Immunizations SOCIAL HISTORY Never Assessed REASON FOR VISIT EMR-[facility] PLAN OF CARE VITAL SIGNS MEDICATIONS Unknown [...] age 6 Hospitalization History surgery Hospitalization History [facility] treatment few times for BH
--- OUTSIDE RECORDS SUMMARY | 2019-09-29 10:56 | XMS REPORT ---
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 Active 76033131 Problem Open-angle glaucoma of both eyes, unspecified glaucoma stage, unspecified open-angle glaucoma type H40.10X0 Acti ve 21041530 Problem Adjustment disorder, unspecified type F43.20 Active 77934768 Problem Obstructive sleep apnea G47.33 Active 14607002 Problem Hypertensive retinopathy of both eyes H35.033 Active 5005299 Problem Type 2 diabetes mellitus with complication E11.8 Active 65909206 Problem Essential hypertension I10 Active 91198182 Problem Diabetes E11.9 Active 91314686 Problem Bipolar disorder, in partial remission, most rec ent episode manic F31.73 Active 40266187 Problem Intermittent explosive disorder in adult F63.81 Active 04658933 Problem Other diabetic neurological complication associated with type 2 diabetes mellitus E11.49 Active 784509532 Problem Depression F32.9 Active 36047385 Problem Neuropathy G62.9 Active 097453905 Problem Intermittent explosive disorder F63.81 Active 65627555 Problem Bipolar disorder, unspecified F31.9 Active 50348237 Problem Mild intellectual disability F70 A ctive 54716219 Problem Reactive airway disease, mild intermittent, uncomplicated J45.20 Active 169047938 Problem Gastroesophageal reflux disease without esophagitis K21.9 Active 501005693 ALLERGIES No Information ENCOUNTERS Encounter Location Date Diagnosis [facility] [address] [facility] [id number] [address] [place] [address] Oct, [facility] [address] [facility] [id number] [address] [place] [address] August, [facility] [address] [facility] [id number] [address] [place] [address] [phone] August, [facility] [address] [place] [address] Jul, Onychomycosis B35.1 ; Other diabetic neurological complication associated with type 2 diabetes mellitus E11.49 and Tinea pedis of both feet B35.3 [facility] [address] [place] [id number] [address] [place] [address] [id number] Jul, Caries K02.9 [facility] [address] [facility] [id number] [address] [place] [address] Jul, Type 2 diabetes mellitus wit h complication E11.8 ; Tobacco abuse Z72.0 and Bipolar disorder, unspecified F31.9 [facility] [address] [place] [id number] [address] [place] [address] Jun, [facility] [address] [place] [id number] [address] [place] [address] [phone] Jun, Dental examination Z01.20 an d Oral health maintenance status requiring routine preventive dental care K08.9 [facility] [address] [place] [address] May, Bilateral impacted cerumen H 61.23 [facility] [address] [place] [id number] [address] [place] [address] Apr, Bipolar disorder, unspecifie d F31.9 ; Intermittent explosive disorder in adult F63.81 ; Type 2 diabetes mellitus with complication E11.8 ; Tobacco abuse Z72.0 and Colon cancer screening Z12.11 [facility] [address] [facility] [id number] [address] [place] [address] Apr, Onychomycosis B35.1 and Othe r diabetic neurological complication associated with type 2 diabetes mellitus E11.49 [facility] [address] [place] [id number] [address] [place] [address] Apr, Intermittent explosive disor salvatore in adult F63.81 ; Bipolar disorder, unspecified F31.9 and Mild intellectual disability F70 [facility] [address] [facility] [id number] [address] [place] [address] 03 Mar, [address] [facility] [address] [facility] [id number] [address] [place] [address] Jan, Encounter for immunization Z 23 [facility] [address] [facility] [id number] [address] [place] [address] 12 Jan, 2018 Tinea pedis of both feet B35 .3 ; Other diabetic neurological complication associated with type 2 diabetes mellitus E11.49 and Onychomycosis B35.1 [facility] [address] [facility] [id number] [address] [place] [address] Nov, Type 2 diabetes mellitus wit h complication E11.8 [facility] [address] [place] [id number] [address] [place] [address] Nov, [facility] [address] [place] [id number] [address] [place] [address] Oct, Intermittent explosive disor salvatore in adult F63.81 ; Bipolar disorder, unspecified F31.9 and Mild intellectual disability F70 [facility] [address] [facility] [id number] [address] [place] [address] Oct, [facility] [address] [place] [id number] [address] [place] [address] [phone] Oct, Dental examination Z01.20 [facility] [address] [facility] [id number] [address] [place] [address] Oct, Onychomycosis B35.1 and Othe r diabetic neurological complication associated with type 2 diabetes mellitus E11.49 [facility] [address] [facility] [id number] [address] [place] [address] Sep, Type 2 diabetes mellitus wit h complication E11.8 and Colon cancer screening Z12.11 [facility] [address] [facility] [id number] [address] [place] [address] 18 Sep, 2017 Type 2 diabetes mellitus wit h complication E11.8 ; Colon cancer screening Z12.11 and Neuropathy G62.9 [facility] [address] [facility] [id number] [address] [place] [address] August, Diabetes E11.9 [facility] [address] [facility] [id number] [address] [place] [address] [id number] Jul, Dental examination Z01.20 [facility] [address] [facility] [id number] [address] [place] [address] May, Mild intellectual disability F70 [place] [address] [facility] [id number] [address] [place] [address] May, Mild intellectual disability F70 ; High risk medication use Z79.899 ; Intermittent explosive disorder in adult F63.81 and Bipolar disorder, unspecified F31.9 [place] [id number] [address] May, [facility] [address] [place] [id number] [address] [place] [address] May, [facility] [address] [place] [id number] [address] [place] [address] Apr, Type 2 diabetes mellitus wit h complication E11.8 ; Mild intellectual disability F70 ; Gastroesophageal reflux disease without esophagitis K21.9 ; Reactive airway disease, mild intermittent, uncomplicated J45.20 and Tobacco abuse Z72.0 [place] [address] [place] [address] Apr, High risk medication use Z79 .899 ; Mild intellectual disability F70 ; Intermittent explosive disorder in adult F63.81 and Bipolar disorder, unspecified F31.9 [facility] [address] [place] [id number] [address] [place] [address] [phone] Mar, Dental examination Z01.20 [facility] [address] [facility] [id number] [address] [place] [address] [phone] Mar, Encounter for dental exam an d cleaning w/o abnormal findings Z01.20 [facility] [address] [id number] [address] [place] [address] 12 Jan, 2017 [facility] [address] [id number] [address] [place] [address] Jan, [facility] [address] [id number] [address] [place] [address] 10 Jan, 2017 Mild intellectual disability F70 ; Bipolar disorder, unspecified F31.9 and Intermittent explosive disorder in adult F63.81 [facility] [address] [id number] [address] [place] [address] 02 Jan, 2017 Diabetes E11.9 [facility] [address] [id number] [address] [place] [address] [id number] 13 Dec, 2016 Encounter for dental examina tion and cleaning without abnormal findings Z01.20 [facility] [address] [id number] [address] [place] [address] 12 Dec, 2016 Bipolar disorder, unspecifie d F31.9 ; Intermittent explosive disorder in adult F63.81 and Mild intellectual disability F70 [facility] [address] [id number] [address] [place] [address] Nov, Diabetes E11.9 [facility] [address] [id number] [address] [place] [address] Nov, [facility] [address] [id number] [address] [place] [address] Nov, Diabetes E11.9 and Colon can cer screening Z12.[id number] [place] [address] [id number] 21 Sep, 2016 Dental examination Z01.20 [facility] [address] [id number] [address] [place] [address] [id number] 21 Sep, 2016 Encounter for dental examina tion and cleaning without abnormal findings Z01.20 [facility] [address] [id number] [address] [place] [address] 13 Sep, 2016 Bipolar disorder, unspecifie d F31.9 [facility] [address] [id number] [address] [place] [address] 12 Sep, 2016 Bipolar disorder, unspecifie d F31.9 [facility] [address] [id number] [address] [place] [address] Jul, [facility] [address] [facility] [id number] [address] [place] [id number] 13 Jul, 2016 Type 2 diabetes mellitus wit h complication E11.8 [facility] [address] [id number] [address] [place] [address] [id number] 15 Jun, 2016 Encounter for dental examina tion and cleaning without abnormal findings Z01.20 [place] [id number] [facility] [id number] [place] [address] [id number] 15 Jun, 2016 Dental examination Z01.20 [facility] [address] [facility] [id number] [address] [place] [address] Apr, Sports physical Z02.5 [facility] [address] [facility] [id number] [address] [place] [address] 14 Mar, 2016 Bipolar disorder, in partial remission, most recent episode manic F31.73 and Intermittent explosive disorder in adult F63.81 [facility] [address] [facility] [id number] [address] [place] [address] 08 Mar, 2016 [facility] [address] [facility] [id number] [address] [place] [phone] 06 Mar, 2016 Diabetes E11.9 [facility] [address] [id number] [address] [place] [address] [phone] Feb, Encounter for dental examina tion and cleaning without abnormal findings Z01.20 [facility] [address] [facility] [id number] [address] [place] [address] 22 Dec, 2015 Nocturnal hypoxemia G47.34 a nd Encounter for immunization Z23 [facility] [address] [facility] [id number] [address] [place] [address] 15 Dec, 2015 [facility] [address] [facility] [id number] [address] [place] [address] Dec, [facility] [address] [facility] [id number] [address] [place] [address] Dec, Bipolar disorder, unspecifie d F31.9 [facility] [address] [id number] [address] [place] [address] [phone] Oct, Encounter for dental examina tion and cleaning without abnormal findings Z01.20 [facility] [address] [id number] [id number] 13 Oct, 2015 Dental examination Z01.20 [facility] [address] [facility] [id number] [address] [place] [address] 07 Oct, 2015 Diabetes E11.9 [facility] [address] [place] [id number] [place] [address] Oct, Diabetes E11.9 ; Reactive ai rway disease, mild intermittent, uncomplicated J45.20 and Tobacco abuse Z72.0 [facility] [address] [place] [address] Sep, Bipolar disorder, unspecifie d F31.9 and Depression F32.9 [facility] [address] [place] [id number] [address] [place] [address] Sep, [facility] [address] [address] August, Tinea pedis of both feet B35 .3 and DM w/o complication type II, uncontrolled E11.65 [facility] [address] [facility] [id number] [address] [place] [address] Jul, [facility] [address] [address] Jul, [facility] [address] [facility] [id number] [address] [place] [address] Jul, Obstructive sleep apnea G47. 33 [facility] [address] [place] [id number] [address] [place] [address] Jun, Diabetes E11.9 [facility] [address] [address] Jun, [facility] [address] [address] Jun, [place] [address] [address] Jun, Bipolar disorder, unspecifie d F31.9 and Mental retardation F79 [place] [address] [address] Apr, [place] [address] [address] Feb, Diabetes E11.9 ; Encounter f or immunization Z23 ; Cough R05 and Nicotine abuse Z72.0 [place] [address] [address] Jan, Bipolar disorder, unspecifie d F31.9 and Diabetes mellitus without mention of complication, type II or unspecified type, uncontrolled 250.02 [place] [address] [address] Jan, [place] [address] [address] Dec, Reactive airway disease 493. 90 and Enuresis 788.30 [place] [address] [address] Dec, [place] [address] [address] Nov, [place] [address] [address] Nov, [place] [address] [address] Nov, Annual physical exam V70.0 ; Urinary incontinence 788.30 ; Diabetes 250.00 and Hypertension 401.9 [facility] [address] [id number] [address] [place] [address] Oct, Diabetes mellitus without me ntion of complication, type II or unspecified type, uncontrolled 250.02 [facility] [address] [id number] [address] [place] [address] Oct, Diabetes mellitus without me ntion of complication, type II or unspecified type, uncontrolled 250.02 [facility] [address] [id number] [address] [place] [address] Oct, Diabetes mellitus without me ntion of complication, type II or unspecified type, uncontrolled 250.02 [facility] [address] [id number] [address] [place] [address] Oct, [facility] [address] [id number] [address] [place] [address] Oct, [facility] [address] [id number] [address] [place] [address] Oct, Bipolar disorder, unspecifie d 296.80 [facility] [address] [id number] [place] [address] [id number] Sep, Dental examination V72.2 [facility] [address] [id number] [address] [place] [address] August, [facility] [address] [id number] [place] [address] [id number] August, Dental examination V72.2 [facility] [address] [id number] [address] [place] [address] August, [facility] [address] [id number] [address] [place] [address] Jul, [facility] [address] [id number] [address] [place] [address] Jul, [facility] [address] [facility] [id number] [address] [place] [address] Jun, [facility] [address] [id number] [address] [place] [address], [place] [address] 17 Jun, 2014 [facility] [address] [id number] [address] [place] [address], [place] [address] 17 Jun, 2014 [facility] [address] [id number] [address] [place] [address], [place] [address] 17 Jun, 2014 [facility] [address] [id number] [address] [place] [address], [place] [address] 23 May, 2014 [facility] [address] [id number] [address] [place] [address], [place] [address] 23 May, 2014 [facility] [address] [id number] [address] [place] [address], [place] [address] 16 May, 2014 [facility] [address] [id number] [address] [place] [address], [place] [address] 16 May, 2014 [facility] [address] [id number] [address] [place] [address], [place] [address] 16 May, 2014 [facility] [address] [id number] [address] [place] [address], [place] [address] 16 May, 2014 [facility] [address] [id number] [address] [place] [address], [place] [address] 16 May, 2014 [facility] [address] [id number] [address] [place] [address], [place] [address] 16 May, 2014 [facility] [address] [id number] [address] [place] [address], [place] [address] 16 May, 2014 [facility] [address] [id number] [address] [place] [address], [place] [address] 16 May, 2014 [facility] [address] [id number] [address] [place] [address], [place] [address] 16 May, 2014 [facility] [address] [id number] [address] [place] [address], [place] [address] 16 May, 2014 [facility] [address] [id number] [address] [place] [address], [place] [address] May, [facility] [address] [id number] [address] [place] [address], [place] [address] May, [facility] [address] [id number] [address] [place] [address], [place] [address] May, [facility] [address] [id number] [address] [place] [address], [place] [address] Apr, [facility] [address] [id number] [address] [place] [address], [place] [address] Apr, [facility] [address] [id number] [address] [place] [address], [place] [address] Apr, [facility] [address] [id number] [address] [place] [address], [place] [address] Apr, [facility] [address] [id number] [address] [place] [address], [place] [address] Apr, [facility] [address] [id number] [address] [place] [address], [place] [address] Apr, [facility] [address] [id number] [address] [place] [address], [place] [address] Apr, [facility] [address] [id number] [address] [place] [address], [place] [address] Apr, [facility] [address] [id number] [address] [place] [address], [place] [address] Apr, [facility] [address] [id number] [address] [place] [address], [place] [address] Apr, [facility] [address] [id number] [address] [place] [address], [place] [address] Apr, [facility] [address] [id number] [address] [place] [address], [place] [address] Apr, [facility] [address] [id number] [address] [place] [address], [place] [address] Mar, [facility] [address] [id number] [address] [place] [address], [place] [address] Mar, [facility] [address] [id number] [address] [place] [address], [place] [address] Mar, [facility] [address] [id number] [address] [place] [address], [place] [address] Mar, [facility] [address] [id number] [address] [place] [address], [place] [address] Mar, [facility] [address] [id number] [address] [place] [address], [place] [address] Mar, [facility] [address] [id number] [address] [place] [address], [place] [address] Feb, [facility] [address] [id number] [address] [place] [address], [place] [address] Feb, [facility] [address] [id number] [address] [place] [address], [place] [address] Feb, [facility] [address] [id number] [address] [place] [address], [place] [address] Feb, [facility] [address] [id number] [address] [place] [address], [place] [address] 14 Jan, 2014 [facility] [address] [id number] [address] [place] [address], [place] [id number] 14 Jan, 2014 [facility] [address] [id number] [address] [place] [address], [place] [id number] 14 Jan, 2014 [facility] [address] [id number] [address] [place] [address], [place] [address] 14 Jan, 2014 [facility] [address] [id number] [address] [place] [address], [place] [address] 22 Dec, 2013 [facility] [address] [id number] [address] [place] [address], [place] [id number] 22 Dec, 2013 [facility] [address] [id number] [address] [place] [id number] 15 Dec, 2013 [facility] [address] [id number] [address] [place] [address], [place] [address] Dec, [facility] [address] [id number] [address] [place] [address], [place] [address] Nov, [facility] [address] [id number] [address] [place] [address], [place] [address] Nov, [facility] [address] [id number] [address] [place] [address], [place] [address] Nov, [facility] [address] [id number] [address] [place] [address], [place] [address] Nov, [facility] [address] [id number] [address] [place] [address], [place] [address] Nov, [facility] [address] [id number] [address] [place] [address], [place] [address] Nov, [facility] [address] [id number] [address] [place] [address], [place] [address] Nov, [facility] [address] [id number] [address] [place] [address], [place] [address] Oct, [facility] [address] [id number] [address] [place] [address], [place] [address] Oct, [facility] [address] [id number] [address] [place] [address], [place] [address] Oct, [facility] [address] [id number] [address] [place] [address], [place] [address] Oct, [facility] [address] [id number] [address] [place] [address], [place] [address] Oct, [facility] [address] [id number] [address] [place] [address], [place] [address] Oct, [facility] [address] [id number] [address] [place] [address], [place] [address] Oct, [facility] [address] [id number] [address] [place] [address], [place] [address] Sep, [facility] [address] [id number] [address] [place] [address], [place] [address] Sep, [facility] [address] [id number] [address] [place] [address], [place] [address] Sep, [facility] [address] [id number] [address] [place] [address], [place] [address] Sep, [facility] [address] [id number] [address] [place] [address], [place] [address] Sep, [facility] [address] [id number] [address] [place] [address], [place] [address] Jul, [facility] [address] [id number] [address] [place] [address], [place] [address] Jul, [facility] [address] [id number] [address] [place] [address], [place] [address] Jul, [facility] [address] [id number] [address] [place] [address], [place] [address] Jul, [facility] [address] [id number] [address] [place] [address], [place] [address] Jul, [facility] [address] [id number] [address] [place] [address], [place] [address] Jul, [facility] [address] [id number] [address] [place] [address], [place] [address] Jul, [facility] [address] [id number] [address] [place] [address], [place] [address] Jul, [facility] [address] [id number] [address] [place] [address], [place] [address] Jul, [facility] [address] [id number] [address] [place] [address], [place] [address] Jul, [facility] [address] [id number] [address] [place] [address], [place] [address] Jul, [facility] [address] [id number] [address] [place] [address], [place] [address] Jul, [facility] [address] [id number] [address] [place] [address], [place] [address] Jun, [facility] [address] [id number] [address] [place] [address], [place] [address] Jun, [facility] [address] [id number] [address] [place] [address], [place] [address] Jun, [facility] [address] [id number] [address] [place] [address], [place] [address] Jun, [facility] [address] [id number] [address] [place] [address], [place] [address] Jun, [facility] [address] [id number] [address] [place] [address], [place] [address] Jun, [facility] [address] [id number] [address] [place] [address], [place] [address] Jun, [facility] [address] [id number] [address] [place] [address], [place] [address] Jun, [facility] [address] [id number] [address] [place] [address], [place] [address] May, [facility] [address] [id number] [address] [place] [address], [place] [address] May, [facility] [address] [id number] [address] [place] [address], [place] [address] May, [facility] [address] [id number] [address] [place] [address], [place] [address] May, [facility] [address] [id number] [address] [place] [address], [place] [address] May, [facility] [address] [id number] [address] [place] [address], [place] [address] May, [facility] [address] [id number] [address] [place] [address], [place] [address] May, [facility] [address] [id number] [address] [place] [address], [place] [address] May, [facility] [address] [id number] [address] [place] [address], [place] [address] Apr, [facility] [address] [id number] [address] [place] [address], [place] [address] Apr, [facility] [address] [id number] [address] [place] [address], [place] [address] Apr, [facility] [address] [id number] [address] [place] [address], [place] [address] Apr, [facility] [address] [id number] [address] [place] [address], [place] [address] Mar, [facility] [address] [id number] [address] [place] [address], [place] [address] Mar, [facility] [address] [id number] [address] [place] [address], [place] [address] Mar, [facility] [address] [id number] [address] [place] [address], [place] [address] Feb, [facility] [address] [id number] [address] [place] [address], [place] [address] Feb, [facility] [address] [id number] [address] [place] [address], [place] [address] Feb, [facility] [address] [id number] [address] [place] [address], [place] [address] Feb, [facility] [address] [id number] [address] [place] [address], [place] [address] Feb, [facility] [address] [id number] [address] [place] [address], [place] [address] Feb, [facility] [address] [id number] [address] [place] [address], [place] [address] Jan, [facility] [address] [id number] [address] [place] [address], [place] [address] Jan, [facility] [address] [id number] [address] [place] [address], [place] [address] Jan, [facility] [address] [id number] [address] [place] [address], [place] [address] Jan, [facility] [address] [id number] [address] [place] [address], [place] [address] Jan, [facility] [address] [id number] [address] [place] [address], [place] [address] Jan, [facility] [address] [id number] [address] [place] [address], [place] [address] Jan, [facility] [address] [id number] [address] [place] [address], [place] [address] Dec, [facility] [address] [id number] [address] [place] [address], [place] [address] 16 Dec, 2012 [facility] [address] [id number] [address] [place] [address], [place] [address] 10 Dec, 2012 [facility] [address] [id number] [address] [place] [address], [place] [address] 05 Dec, 2012 [facility] [address] [id number] [address] [place] [address], [place] [address] Nov, [facility] [address] [id number] [address] [place] [address], [place] [address] Nov, [facility] [address] [id number] [address] [place] [address], [place] [address] Nov, [facility] [address] [id number] [address] [place] [address], [place] [address] Nov, [facility] [address] [id number] [address] [place] [address], [place] [address] Nov, [facility] [address] [id number] [address] [place] [address], [place] [address] Nov, [facility] [address] [id number] [address] [place] [address], [place] [address] Nov, [facility] [address] [id number] [address] [place] [address], [place] [address] Oct, [facility] [address] [id number] [address] [place] [address], [place] [address] Oct, [facility] [address] [id number] [address] [place] [address], [place] [address] Oct, [facility] [address] [id number] [address] [place] [address], [place] [address] Oct, [facility] [address] [id number] [address] [place] [address], [place] [address] Oct, [facility] [address] [id number] [address] [place] [address], [place] [address] Oct, [facility] [address] [id number] [address] [place] [address], [place] [address] Oct, [facility] [address] [id number] [address] [place] [address], [place] [address] Oct, [facility] [address] [id number] [address] [place] [address], [place] [address] Sep, [address] [facility] [id number] [place] [id number] August, [facility] [address] [id number] [address] [place] [address], [place] [address] August, [facility] [address] [id number] [address] [place] [address], [place] [address] Jul, [facility] [address] [id number] [address] [place] [address], [place] [address] Jul, [facility] [address] [id number] [address] [place] [address], [place] [address] Jul, 2012 [facility] [address] [id number] [address] [place] [address], [place] [address] 22 Jul, 2012 [facility] [address] [id number] [address] [place] [address], [place] [address] 18 Jul, 2012 [facility] [address] [id number] [address] [place] [address], [place] [address] 17 Jul, 2012 [facility] [address] [id number] [address] [place] [address], [place] [address] 16 Jul, 2012 [facility] [address] [id number] [address] [place] [address], [place] [address] Jun, [facility] [address] [id number] [address] [place] [address], [place] [address] Jun, [facility] [address] [id number] [address] [place] [address], [place] [address] Jun, [facility] [address] [id number] [address] [place] [address], [place] [address] Jun, [facility] [address] [id number] [address] [place] [address], [place] [address] Jun, [facility] [address] [id number] [address] [place] [address], [place] [address] May, [facility] [address] [id number] [address] [place] [address], [place] [address] 18 May, 2012 [facility] [address] [id number] [address] [place] [address], [place] [address] May, [facility] [address] [id number] [address] [place] [address], [place] [address] 15 Apr, 2012 [facility] [address] [id number] [address] [place] [address], [place] [address] 14 Apr, 2012 [facility] [address] [id number] [address] [place] [address], [place] [address] 07 Apr, 2012 [facility] [address] [id number] [address] [place] [address], [place] [address] 31 Mar, 2012 [facility] [address] [id number] [address] [place] [address], [place] [address] 31 Mar, 2012 [facility] [address] [id number] [address] [place] [address], [place] [address] Mar, [facility] [address] [id number] [address] [place] [address], [place] [address] Mar, [facility] [address] [id number] [address] [place] [address], [place] [address] Mar, [facility] [address] [id number] [address] [place] [address], [place] [address] Mar, [facility] [address] [id number] [address] [place] [address], [place] [address] Feb, [facility] [address] [id number] [address] [place] [address], [place] [address] Feb, [facility] [address] [id number] [address] [place] [address], [place] [address] Jan, [facility] [address] [id number] [address] [place] [address], [place] [address] Jan, [facility] [address] [id number] [address] [place] [address], [place] [address] Dec, [facility] [address] [id number] [address] [place] [address], [place] [address] Nov, [facility] [address] [id number] [address] [place] [address], [place] [address] Nov, [facility] [address] [id number] [address] [place] [address], [place] [address] Nov, [facility] [address] [id number] [address] [place] [address], [place] [address] Nov, [facility] [address] [id number] [address] [place] [address], [place] [address] Oct, [facility] [address] [id number] [address] [place] [address], [place] [address] Oct, [facility] [address] [id number] [address] [place] [address], [place] [address] Oct, [facility] [address] [id number] [address] [place] [address], [place] [address] Sep, [facility] [address] [id number] [address] [place] [address], [place] [address] Sep, [facility] [address] [id number] [address] [place] [address], [place] [address] Sep, [facility] [address] [id number] [address] [place] [address], [place] [address] August, [facility] [address] [id number] [address] [place] [address], [place] [address] August, [facility] [address] [id number] [address] [place] [address], [place] [address] Jul, [facility] [address] [id number] [address] [place] [address], [place] [address] Jul, [facility] [address] [id number] [address] [place] [address], [place] [address] Jul, [facility] [address] [id number] [address] [place] [address], [place] [address] Jul, [facility] [address] [id number] [address] [place] [address], [place] [address] Jun, [facility] [address] [id number] [address] [place] [address], [place] [address] May, [facility] [address] [id number] [address] [place] [address], [place] [address] Apr, [facility] [address] [id number] [address] [place] [address], [place] [address] Apr, [facility] [address] [id number] [address] [place] [address], [place] [address] Apr, [facility] [address] [id number] [address] [place] [address], [place] [address] Apr, [facility] [address] [id number] [address] [place] [address], [place] [address] Apr, [facility] [address] [id number] [address] [place] [address], [place] [address] Apr, [facility] [address] [id number] [address] [place] [address], [place] [address] Mar, [facility] [address] [id number] [address] [place] [address], [place] [address] Mar, [facility] [address] [id number] [address] [place] [address], [place] [address] Feb, [facility] [address] [id number] [address] [place] [address], [place] [address] Feb, [facility] [address] [id number] [address] [place] [address], [place] [address] Feb, [facility] [address] [id number] [address] [place] [address], [place] [address] Feb, [facility] [address] [id number] [address] [place] [address], [place] [address] Jan, [facility] [address] [id number] [address] [place] [address], [place] [address] Jan, [facility] [address] [id number] [address] [place] [address] Jan, [facility] [address] [id number] [address] [place] [address], [place] [address] Jan, [facility] [address] [id number] [address] [place] [address], [place] [address] Nov, [facility] [address] [id number] [address] [place] [address], [place] [address] Mar, [facility] [address] [id number] [address] [place] [address], [place] [address] 02 Mar, 2010 [facility] [address] [id number] [address] [place] [address], [place] [address] 30 Feb, 2010 [facility] [address] [id number] [address] [place] [address], [place] [address] 15 Feb, 2010 [facility] [address] [id number] [address] [place] [address], [place] [address] Jan, [facility] [address] [id number] [address] [place] [address], [place] [address] 19 Jan, 2010 [facility] [address] [id number] [address] [place] [address], [place] [address] 15 Sep, 2009 [facility] [address] [id number] [address] [place] [address], [place] [address] 16 May, 2009 [facility] [address] [id number] [address] [place] [address], [place] [address] Apr, [facility] [address] [id number] [address] [place] [address], [place] [address] Mar, [facility] [address] [id number] [address] [place] [address], [place] [address] 15 Feb, 2009 [facility] [address] [id number] [address] [place] [address] 10 Feb, 2009 [facility] [address] [id number] [address] [place] [address] 10 Feb, 2009 [facility] [address] [id number] [address] [place] [address], [place] [id number] 22 Jan, 2009 [facility] [address] [id number] [address] [place] [address], [place] [id number] 13 Jan, 2009 [facility] [address] [id number] [address] [place] [id number] 13 Jan, 2009 [facility] [address] [id number] [address] [place] [id number] Jan, [facility] [address] [facility] [id number] [address] [place] [address] August, IMMUNIZATIONS No Known Immunizations SOCIAL HISTORY Never Assessed REASON FOR VISIT EMR-[facility] [place] PLAN OF CARE VITAL SIGNS [...] 7 Hospitalization History surgery Hospitalization History [facility], [facility] few times for BH
--- OUTSIDE RECORDS SUMMARY | 2019-09-29 10:56 | XMS REPORT ---
Author Author Cameron Estrella Doctor Organization 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 Active 37244561 Problem Open-angle glaucoma of both eyes, unspecified glaucoma stage, unspecified open-angle glaucoma type H40.10X0 Acti ve 25664437 Problem Adjustment disorder, unspecified type F43.20 Active 72361600 Problem Obstructive sleep apnea G47.33 Active 62786805 Problem Hypertensive retinopathy of both eyes H35.033 Active 8285925 Problem Type 2 diabetes mellitus with complication E11.8 Active 98021028 Problem Essential hypertension I10 Active 17396471 Problem Diabetes E11.9 Active 56224755 Problem Bipolar disorder, in partial remission, most rec ent episode manic F31.73 Active 47094782 Problem Intermittent explosive disorder in adult F63.81 Active 78320275 Problem Other diabetic neurological complication associated with type 2 diabetes mellitus E11.49 Active 212589258 Problem Depression F32.9 Active 46257097 Problem Neuropathy G62.9 Active 500829707 Problem Intermittent explosive disorder F63.81 Active 57450480 Problem Bipolar disorder, unspecified F31.9 Active 55715432 Problem Mild intellectual disability F70 A ctive 04475872 Problem Reactive airway disease, mild intermittent, uncomplicated J45.20 Active 476265640 Problem Gastroesophageal reflux disease without esophagitis K21.9 Active 352234489 ALLERGIES No Information ENCOUNTERS Encounter Location Date Diagnosis [facility] [address] [facility] [id number] [address] [place] [address] Oct, [facility] [address] [facility] [id number] [address] [place] [address] August, [facility] [address] [facility] [id number] [address] [place] [address] [id number] August, [facility] [address] [place] [address] Jul, Onychomycosis B35.1 ; Other diabetic neurological complication associated with type 2 diabetes mellitus E11.49 and Tinea pedis of both feet B35.3 [facility] [address] [place] [id number] [address] [place] [address] [id number] Jul, Caries K02.9 [facility] [address] [facility] [id number] [address] [place] [address] Jul, Type 2 diabetes mellitus wit h complication E11.8 ; Tobacco abuse Z72.0 and Bipolar disorder, unspecified F31.9 [facility] [address] [place] [id number] [address] [place] [phone] Jun, [facility] [address] [place] [id number] [address] [place] [address] [id number] Jun, Dental examination Z01.20 an d Oral health maintenance status requiring routine preventive dental care K08.9 [facility] [address] [place] [address] May, Bilateral impacted cerumen H 61.23 [facility] [address] [place] [id number] [address] [place] [address] Apr, Bipolar disorder, unspecifie d F31.9 ; Intermittent explosive disorder in adult F63.81 ; Type 2 diabetes mellitus with complication E11.8 ; Tobacco abuse Z72.0 and Colon cancer screening Z12.11 [facility] [address] [facility] [id number] [address] [place] [address] Apr, Onychomycosis B35.1 and Othe r diabetic neurological complication associated with type 2 diabetes mellitus E11.49 [facility] [address] [place] [id number] [address] [place] [address] Apr, Intermittent explosive disor salvatore in adult F63.81 ; Bipolar disorder, unspecified F31.9 and Mild intellectual disability F70 [facility] [address] [facility] [id number] [address] [place] [address] 03 Mar, 2018 Diabetes E11.9 [facility] [address] [facility] [id number] [address] [place] [address] Jan, Encounter for immunization Z 23 [facility] [address] [facility] [id number] [address] [place] [phone] 12 Jan, 2018 Tinea pedis of both feet B35 .3 ; Other diabetic neurological complication associated with type 2 diabetes mellitus E11.49 and Onychomycosis B35.1 [facility] [address] [facility] [id number] [address] [place] [address] Nov, Type 2 diabetes mellitus wit h complication E11.8 [facility] [address] [place] [id number] [address] [place] [address] Nov, [facility] [address] [place] [id number] [address] [place] [address] Oct, Intermittent explosive disor salvatore in adult F63.81 ; Bipolar disorder, unspecified F31.9 and Mild intellectual disability F70 [facility] [address] [facility] [id number] [address] [place] [address] Oct, [facility] [address] [place] [id number] [address] [place] [address] [id number] Oct, Dental examination Z01.20 [facility] [address] [facility] [id number] [address] [place] [address] Oct, Onychomycosis B35.1 and Othe r diabetic neurological complication associated with type 2 diabetes mellitus E11.49 [facility] [address] [facility] [id number] [address] [place] [address] Sep, Type 2 diabetes mellitus wit h complication E11.8 and Colon cancer screening Z12.11 [facility] [address] [facility] [id number] [address] [place] [id number] 18 Sep, 2017 Type 2 diabetes mellitus wit h complication E11.8 ; Colon cancer screening Z12.11 and Neuropathy G62.9 [facility] [address] [facility] [id number] [address] [place] [address] August, Diabetes E11.9 [facility] [address] [facility] [id number] [address] [place] [address] [id number] Jul, Dental examination Z01.20 [facility] [address] [facility] [id number] [address] [place] [address] May, Mild intellectual disability F70 [facility] [address] [facility] [id number] [address] [place] [address] May, Mild intellectual disability F70 ; High risk medication use Z79.899 ; Intermittent explosive disorder in adult F63.81 and Bipolar disorder, unspecified F31.9 [facility] [address] [address] May, [facility] [address] [place] [id number] [address] [place] [address] May, [facility] [address] [place] [id number] [address] [place] [address] Apr, Type 2 diabetes mellitus wit h complication E11.8 ; Mild intellectual disability F70 ; Gastroesophageal reflux disease without esophagitis K21.9 ; Reactive airway disease, mild intermittent, uncomplicated J45.20 and Tobacco abuse Z72.0 [facility] [address] [place] [id number] [address] [place] [address] Apr, High risk medication use Z79 .899 ; Mild intellectual disability F70 ; Intermittent explosive disorder in adult F63.81 and Bipolar disorder, unspecified F31.9 [facility] [id number] [place] [address] [id number] Mar, Encounter for dental exam an d cleaning w/o abnormal findings Z01.20 [facility] [address] [facility] [id number] [address] [place] [address] [id number] Mar, Dental examination Z01.20 [facility] [address] [id number] [address] [place] [address] 12 Jan, 2017 [facility] [address] [id number] [address] [place] [address] Jan, [facility] [address] [id number] [address] [place] [address] 10 Jan, 2017 Mild intellectual disability F70 ; Bipolar disorder, unspecified F31.9 and Intermittent explosive disorder in adult F63.81 [facility] [address] [id number] [address] [place] [id number] 02 Jan, 2017 Diabetes E11.9 [facility] [address] [id number] [address] [place] [address] [id number] 13 Dec, 2016 Encounter for dental examina tion and cleaning without abnormal findings Z01.20 [facility] [address] [id number] [address] [place] [id number] 12 Dec, 2016 Bipolar disorder, unspecifie d F31.9 ; Intermittent explosive disorder in adult F63.81 and Mild intellectual disability F70 [facility] [address] [id number] [address] [place] [address] Nov, Diabetes E11.9 [facility] [address] [id number] [address] [place] [address] Nov, [facility] [address] [id number] [address] [place] [address] Nov, Diabetes E11.9 and Colon can cer screening Z12.[id number] [place] [address] [id number] 21 Sep, 2016 Dental examination Z01.20 [facility] [address] [id number] [address] [place] [address] [id number] 21 Sep, 2016 Encounter for dental examina tion and cleaning without abnormal findings Z01.20 [facility] [address] [id number] [address] [place] [address] 13 Sep, 2016 Bipolar disorder, unspecifie d F31.9 [facility] [address] [id number] [address] [place] [id number] 12 Sep, 2016 Bipolar disorder, unspecifie d F31.9 [facility] [address] [id number] [address] [place] [address] Jul, [facility] [address] [facility] [id number] [address] [place] [id number] 13 Jul, 2016 Type 2 diabetes mellitus wit h complication E11.8 [facility] [address] [id number] [address] [place] [address] [id number] 15 Jun, 2016 Encounter for dental examina tion and cleaning without abnormal findings Z01.20 [place] [id number] [facility] [id number] [place] [address] [id number] 15 Jun, 2016 Dental examination Z01.20 [facility] [address] [facility] [id number] [address] [place] [address] Apr, Sports physical Z02.5 [facility] [address] [facility] [id number] [address] [place] [id number] 14 Mar, 2016 Bipolar disorder, in partial remission, most recent episode manic F31.73 and Intermittent explosive disorder in adult F63.81 [facility] [address] [facility] [id number] [address] [place] [phone] 08 Mar, 2016 [facility] [address] [facility] [id number] [address] [place] [phone] 06 Mar, 2016 Diabetes E11.9 [facility] [address] [id number] [address] [place] [address] [id number] Feb, Encounter for dental examina tion and cleaning without abnormal findings Z01.20 [facility] [address] [facility] [id number] [address] [place] [phone] 22 Dec, 2015 Nocturnal hypoxemia G47.34 a nd Encounter for immunization Z23 [facility] [address] [facility] [id number] [address] [place] [id number] 15 Dec, 2015 [facility] [address] [facility] [id number] [address] [place] [id number] Dec, [facility] [address] [facility] [id number] [address] [place] [id number] Dec, Bipolar disorder, unspecifie d F31.9 [facility] [address] [id number] [address] [place] [address] [id number] Oct, Encounter for dental examina tion and cleaning without abnormal findings Z01.[address] [facility] [address] [id number] [id number] 13 Oct, 2015 Dental examination Z01.20 [facility] [address] [facility] [id number] [address] [place] [id number] 07 Oct, 2015 Diabetes E11.9 [facility] [address] [place] [id number] [place] [address] Oct, Diabetes E11.9 ; Reactive ai rway disease, mild intermittent, uncomplicated J45.20 and Tobacco abuse Z72.0 [facility] [address] [place] [address] Sep, Bipolar disorder, unspecifie d F31.9 and Depression F32.9 [facility] [address] [place] [id number] [address] [place] [id number] Sep, [facility] [address] [address] August, Tinea pedis of both feet B35 .3 and DM w/o complication type II, uncontrolled E11.65 [facility] [address] [facility] [id number] [address] [place] [address] Jul, [facility] [address] [address] Jul, [facility] [address] [facility] [id number] [address] [place] [address] Jul, Obstructive sleep apnea G47. 33 [facility] [address] [place] [id number] [address] [place] [address] Jun, Diabetes E11.9 [facility] [address] [address] Jun, [facility] [address] [address] Jun, [place] [address] [address] Jun, Bipolar disorder, unspecifie d F31.9 and Mental retardation F79 [place] [address] [address] Apr, [place] [address] [address] Feb, Diabetes E11.9 ; Encounter f or immunization Z23 ; Cough R05 and Nicotine abuse Z72.0 [place] [address] [address] Jan, Bipolar disorder, unspecifie d F31.9 and Diabetes mellitus without mention of complication, type II or unspecified type, uncontrolled 250.02 [place] [address] [address] Jan, [place] [address] [address] Dec, Reactive airway disease 493. 90 and Enuresis 788.30 [place] [address] [address] Dec, [place] [address] [address] Nov, [place] [address] [address] Nov, [place] [address] [address] Nov, Annual physical exam V70.0 ; Urinary incontinence 788.30 ; Diabetes 250.00 and Hypertension 401.9 [facility] [address] [id number] [address] [place] [address] Oct, Diabetes mellitus without me ntion of complication, type II or unspecified type, uncontrolled 250.02 [facility] [address] [id number] [address] [place] [address] Oct, Diabetes mellitus without me ntion of complication, type II or unspecified type, uncontrolled 250.02 [facility] [address] [id number] [address] [place] [address] Oct, Diabetes mellitus without me ntion of complication, type II or unspecified type, uncontrolled 250.02 [facility] [address] [id number] [address] [place] [address] Oct, [facility] [address] [id number] [address] [place] [id number] Oct, [facility] [address] [id number] [address] [place] [address] Oct, Bipolar disorder, unspecifie d 296.80 [facility] [address] [id number] [place] [address] [id number] Sep, Dental examination V72.2 [facility] [address] [id number] [address] [place] [address] August, [facility] [address] [id number] [place] [address] [id number] August, Dental examination V72.2 [facility] [address] [id number] [address] [place] [address] August, [facility] [address] [id number] [address] [place] [address] Jul, [facility] [address] [id number] [address] [place] [address] Jul, [facility] [address] [facility] [id number] [address] [place] [address] Jun, [facility] [address] [id number] [address] [place] [address], [place] [address] 17 Jun, 2014 [facility] [address] [id number] [address] [place] [address], [place] [address] 17 Jun, 2014 [facility] [address] [id number] [address] [place] [address], [place] [address] 17 Jun, 2014 [facility] [address] [id number] [address] [place] [address], [place] [address] 23 May, 2014 [facility] [address] [id number] [address] [place] [address], [place] [address] 23 May, 2014 [facility] [address] [id number] [address] [place] [address], [place] [address] 16 May, 2014 [facility] [address] [id number] [address] [place] [address], [place] [address] 16 May, 2014 [facility] [address] [id number] [address] [place] [address], [place] [address] 16 May, 2014 [facility] [address] [id number] [address] [place] [address], [place] [address] 16 May, 2014 [facility] [address] [id number] [address] [place] [address], [place] [address] 16 May, 2014 [facility] [address] [id number] [address] [place] [address], [place] [address] 16 May, 2014 [facility] [address] [id number] [address] [place] [address], [place] [address] 16 May, 2014 [facility] [address] [id number] [address] [place] [address], [place] [address] 16 May, 2014 [facility] [address] [id number] [address] [place] [address], [place] [address] 16 May, 2014 [facility] [address] [id number] [address] [place] [address], [place] [address] 16 May, 2014 [facility] [address] [id number] [address] [place] [address], [place] [address] May, [facility] [address] [id number] [address] [place] [address], [place] [address] May, [facility] [address] [id number] [address] [place] [address], [place] [address] May, [facility] [address] [id number] [address] [place] [address], [place] [address] Apr, [facility] [address] [id number] [address] [place] [address], [place] [address] Apr, [facility] [address] [id number] [address] [place] [address], [place] [address] Apr, [facility] [address] [id number] [address] [place] [address], [place] [address] Apr, [facility] [address] [id number] [address] [place] [address], [place] [address] Apr, [facility] [address] [id number] [address] [place] [address], [place] [address] Apr, [facility] [address] [id number] [address] [place] [address], [place] [address] Apr, [facility] [address] [id number] [address] [place] [address], [place] [address] Apr, [facility] [address] [id number] [address] [place] [address], [place] [address] Apr, [facility] [address] [id number] [address] [place] [address], [place] [address] Apr, [facility] [address] [id number] [address] [place] [address], [place] [address] Apr, [facility] [address] [id number] [address] [place] [address], [place] [address] Apr, [facility] [address] [id number] [address] [place] [address], [place] [address] Mar, [facility] [address] [id number] [address] [place] [address], [place] [address] Mar, [facility] [address] [id number] [address] [place] [address], [place] [address] Mar, [facility] [address] [id number] [address] [place] [address], [place] [address] Mar, [facility] [address] [id number] [address] [place] [address], [place] [address] Mar, [facility] [address] [id number] [address] [place] [address], [place] [address] Mar, [facility] [address] [id number] [address] [place] [address], [place] [address] Feb, [facility] [address] [id number] [address] [place] [address], [place] [address] Feb, [facility] [address] [id number] [address] [place] [address], [place] [address] Feb, [facility] [address] [id number] [address] [place] [address], [place] [address] Feb, [facility] [address] [id number] [address] [place] [address], [place] [address] 14 Jan, 2014 [facility] [address] [id number] [address] [place] [address], [place] [address] 14 Jan, 2014 [facility] [address] [id number] [address] [place] [address], [place] [address] 14 Jan, 2014 [facility] [address] [id number] [address] [place] [address], [place] [address] 14 Jan, 2014 [facility] [address] [id number] [address] [place] [address], [place] [address] 22 Dec, 2013 [facility] [address] [id number] [address] [place] [address], [place] [address] 22 Dec, 2013 [facility] [address] [id number] [address] [address] 15 Dec, 2013 [facility] [address] [id number] [address] [place] [address], [place] [address] Dec, [facility] [address] [id number] [address] [place] [address], [place] [address] Nov, [facility] [address] [id number] [address] [place] [address], [place] [address] Nov, [facility] [address] [address] [id number] [address] [place] [address], [place] [address] Nov, [facility] [address] [id number] [address] [place] [address], [place] [address] Nov, [facility] [address] [id number] [address] [place] [address], [place] [address] Nov, [facility] [address] [id number] [address] [place] [address], [place] [address] Nov, [facility] [address] [id number] [address] [place] [address], [place] [address] Nov, [facility] [address] [id number] [address] [place] [address], [place] [address] Oct, [facility] [address] [id number] [address] [place] [address], [place] [address] Oct, [facility] [address] [id number] [address] [place] [address], [place] [address] Oct, [facility] [address] [id number] [address] [place] [address], [place] [address] Oct, [facility] [address] [id number] [address] [place] [address], [place] [address] Oct, [facility] [address] [id number] [address] [place] [address], [place] [address] Oct, [facility] [address] [id number] [address] [place] [address], [place] [address] Oct, [facility] [address] [id number] [address] [place] [address], [place] [address] Sep, [facility] [address] [id number] [address] [place] [address], [place] [address] Sep, [facility] [address] [id number] [address] [place] [address], [place] [address] Sep, [facility] [address] [id number] [address] [place] [address], [place] [address] Sep, [facility] [address] [id number] [address] [place] [address], [place] [address] Sep, [facility] [address] [id number] [address] [place] [address], [place] [address] Jul, [facility] [address] [id number] [address] [place] [address], [place] [address] Jul, [facility] [address] [id number] [address] [place] [address], [place] [address] Jul, [facility] [address] [id number] [address] [place] [address], [place] [address] Jul, [facility] [address] [id number] [address] [place] [address], [place] [address] Jul, [facility] [address] [id number] [address] [place] [address], [place] [address] Jul, [facility] [address] [id number] [address] [place] [address], [place] [address] Jul, [facility] [address] [id number] [address] [place] [address], [place] [address] Jul, [facility] [address] [id number] [address] [place] [address], [place] [address] Jul, [facility] [address] [id number] [address] [place] [address], [place] [address] Jul, [facility] [address] [id number] [address] [place] [address], [place] [address] Jul, [facility] [address] [id number] [address] [place] [address], [place] [address] Jul, [facility] [address] [id number] [address] [place] [address], [place] [address] Jun, [facility] [address] [id number] [address] [place] [address], [place] [address] Jun, [facility] [address] [id number] [address] [place] [address], [place] [address] Jun, [facility] [address] [id number] [address] [place] [address], [place] [address] Jun, [facility] [address] [id number] [address] [place] [address], [place] [address] Jun, [facility] [address] [id number] [address] [place] [address], [place] [address] Jun, [facility] [address] [id number] [address] [place] [address], [place] [address] Jun, [facility] [address] [id number] [address] [place] [address], [place] [address] Jun, [facility] [address] [id number] [address] [place] [address], [place] [address] May, [facility] [address] [id number] [address] [place] [address], [place] [address] May, [facility] [address] [id number] [address] [place] [address], [place] [address] May, [facility] [address] [id number] [address] [place] [address], [place] [address] May, [facility] [address] [id number] [address] [place] [address], [place] [address] May, [facility] [address] [id number] [address] [place] [address], [place] [address] May, [facility] [address] [id number] [address] [place] [address], [place] [address] May, [facility] [address] [id number] [address] [place] [address], [place] [address] May, [facility] [address] [id number] [address] [place] [address], [place] [address] Apr, [facility] [address] [id number] [address] [place] [address], [place] [address] Apr, [facility] [address] [id number] [address] [place] [address], [place] [address] Apr, [facility] [address] [id number] [address] [place] [address], [place] [address] Apr, [facility] [address] [id number] [address] [place] [address], [place] [address] Mar, [facility] [address] [id number] [address] [place] [address], [place] [address] Mar, [facility] [address] [id number] [address] [place] [address], [place] [address] Mar, [facility] [address] [id number] [address] [place] [address], [place] [address] Feb, [facility] [address] [id number] [address] [place] [address], [place] [address] Feb, [facility] [address] [id number] [address] [place] [address], [place] [address] Feb, [facility] [address] [id number] [address] [place] [address], [place] [address] Feb, [facility] [address] [id number] [address] [place] [address], [place] [address] Feb, [facility] [address] [id number] [address] [place] [address], [place] [address] Feb, [facility] [address] [id number] [address] [place] [address], [place] [address] Jan, [facility] [address] [id number] [address] [place] [address], [place] [address] Jan, [facility] [address] [id number] [address] [place] [address], [place] [address] Jan, [facility] [address] [id number] [address] [place] [address], [place] [address] Jan, [facility] [address] [id number] [address] [place] [address], [place] [address] Jan, [facility] [address] [id number] [address] [place] [address], [place] [address] Jan, [facility] [address] [id number] [address] [place] [address], [place] [address] Jan, [facility] [address] [id number] [address] [place] [address], [place] [address] Dec, [facility] [address] [id number] [address] [place] [address], [place] [address] 16 Dec, 2012 [facility] [address] [id number] [address] [place] [address], [place] [address] 10 Dec, 2012 [facility] [address] [id number] [address] [place] [address], [place] [address] 05 Dec, 2012 [facility] [address] [id number] [address] [place] [address], [place] [address] Nov, [facility] [address] [id number] [address] [place] [address], [place] [address] Nov, [facility] [address] [id number] [address] [place] [address], [place] [address] Nov, [facility] [address] [id number] [address] [place] [address], [place] [address] Nov, [facility] [address] [id number] [address] [place] [address], [place] [address] Nov, [facility] [address] [id number] [address] [place] [address], [place] [address] Nov, [facility] [address] [id number] [address] [place] [address], [place] [address] Nov, [facility] [address] [id number] [address] [place] [address], [place] [address] Oct, [facility] [address] [id number] [address] [place] [address], [place] [address] Oct, [facility] [address] [id number] [address] [place] [address], [place] [address] Oct, [facility] [address] [id number] [address] [place] [address], [place] [address] Oct, [facility] [address] [id number] [address] [place] [address], [place] [address] Oct, [facility] [address] [id number] [address] [place] [address], [place] [address] Oct, [facility] [address] [id number] [address] [place] [address], [place] [address] Oct, [facility] [address] [id number] [address] [place] [address], [place] [address] Oct, [facility] [address] [id number] [address] [place] [address], [place] [address] Sep, [facility] [id number] [place] [address] [id number] August, [facility] [address] [id number] [address] [place] [address], [place] [address] August, [facility] [address] [id number] [address] [place] [address], [place] [address] Jul, [facility] [address] [id number] [address] [place] [address], [place] [address] Jul, [facility] [address] [id number] [address] [place] [address], [place] [address] Jul, 2012 [facility] [address] [id number] [address] [place] [address], [place] [address] 22 Jul, 2012 [facility] [address] [id number] [address] [place] [address], [place] [address] 18 Jul, 2012 [facility] [address] [id number] [address] [place] [address], [place] [address] 17 Jul, 2012 [facility] [address] [id number] [address] [place] [address], [place] [address] 16 Jul, 2012 [facility] [address] [id number] [address] [place] [address], [place] [address] Jun, [facility] [address] [id number] [address] [place] [address], [place] [address] Jun, [facility] [address] [id number] [address] [place] [address], [place] [address] Jun, [facility] [address] [id number] [address] [place] [address], [place] [address] Jun, [facility] [address] [id number] [address] [place] [address], [place] [address] Jun, [facility] [address] [id number] [address] [place] [address], [place] [address] May, [facility] [address] [id number] [address] [place] [address], [place] [address] 18 May, 2012 [facility] [address] [id number] [address] [place] [address], [place] [address] May, [facility] [address] [id number] [address] [place] [address], [place] [address] 15 Apr, 2012 [facility] [address] [id number] [address] [place] [address], [place] [address] 14 Apr, 2012 [facility] [address] [id number] [address] [place] [address], [place] [address] 07 Apr, 2012 [facility] [address] [id number] [address] [place] [address], [place] [address] 31 Mar, 2012 [facility] [address] [id number] [address] [place] [address], [place] [address] 31 Mar, 2012 [facility] [address] [id number] [address] [place] [address], [place] [address] Mar, [facility] [address] [id number] [address] [place] [address], [place] [address] Mar, [facility] [address] [id number] [address] [place] [address], [place] [address] Mar, [facility] [address] [id number] [address] [place] [address], [place] [address] Mar, [facility] [address] [id number] [address] [place] [address], [place] [address] Feb, [facility] [address] [id number] [address] [place] [address], [place] [address] Feb, [facility] [address] [id number] [address] [place] [address], [place] [address] Jan, [facility] [address] [id number] [address] [place] [address], [place] [address] Jan, [facility] [address] [id number] [address] [place] [address], [place] [address] Dec, [facility] [address] [id number] [address] [place] [address], [place] [address] Nov, [facility] [address] [id number] [address] [place] [address], [place] [address] Nov, [facility] [address] [id number] [address] [place] [address], [place] [address] Nov, [facility] [address] [id number] [address] [place] [address], [place] [address] Nov, [facility] [address] [id number] [address] [place] [address], [place] [address] Oct, [facility] [address] [id number] [address] [place] [address], [place] [address] Oct, [facility] [address] [id number] [address] [place] [address], [place] [address] Oct, [facility] [address] [id number] [address] [place] [address], [place] [address] Sep, [facility] [address] [id number] [address] [place] [address], [place] [address] Sep, [facility] [address] [id number] [address] [place] [address], [place] [address] Sep, [facility] [address] [id number] [address] [place] [address], [place] [address] August, [facility] [address] [id number] [address] [place] [address], [place] [address] August, [facility] [address] [id number] [address] [place] [address], [place] [address] Jul, [facility] [address] [id number] [address] [place] [address], [place] [address] Jul, [facility] [address] [id number] [address] [place] [address], [place] [address] Jul, [facility] [address] [id number] [address] [place] [address], [place] [address] Jul, [facility] [address] [id number] [address] [place] [address], [place] [address] Jun, [facility] [address] [id number] [address] [place] [address], [place] [address] May, [facility] [address] [id number] [address] [place] [address], [place] [address] Apr, [facility] [address] [id number] [address] [place] [address], [place] [address] Apr, [facility] [address] [id number] [address] [place] [address], [place] [address] Apr, [facility] [address] [id number] [address] [place] [address], [place] [address] Apr, [facility] [address] [id number] [address] [place] [address], [place] [address] Apr, [facility] [address] [id number] [address] [place] [address], [place] [address] Apr, [facility] [address] [id number] [address] [place] [address], [place] [address] Mar, [facility] [address] [id number] [address] [place] [address], [place] [address] Mar, [facility] [address] [id number] [address] [place] [address], [place] [address] Feb, [facility] [address] [id number] [address] [place] [address], [place] [address] Feb, [facility] [address] [id number] [address] [place] [address], [place] [address] Feb, [facility] [address] [id number] [address] [place] [address], [place] [address] Feb, [facility] [address] [id number] [address] [place] [address], [place] [address] Jan, [facility] [address] [id number] [address] [place] [address], [place] [address] Jan, [facility] [address] [id number] [address] [place] [id number] Jan, [facility] [address] [id number] [address] [place] [address], [place] [address] Jan, [facility] [address] [id number] [address] [place] [address], [place] [address] Nov, [facility] [address] [id number] [address] [place] [address], [place] [address] Mar, [facility] [address] [id number] [address] [place] [address], [place] [address] 02 Mar, 2010 [facility] [address] [id number] [address] [place] [address], [place] [address] 30 Feb, 2010 [facility] [address] [id number] [address] [place] [address], [place] [address] 15 Feb, 2010 [facility] [address] [id number] [address] [place] [address], [place] [address] Jan, [facility] [address] [id number] [address] [place] [address], [place] [address] 19 Jan, 2010 [facility] [address] [id number] [address] [place] [address], [place] [address] 15 Sep, 2009 [facility] [address] [id number] [address] [place] [address], [place] [address] 16 May, 2009 [facility] [address] [id number] [address] [place] [address], [place] [address] Apr, [facility] [address] [id number] [address] [place] [address], [place] [address] Mar, [facility] [address] [id number] [address] [place] [address], [place] [address] 15 Feb, 2009 [facility] [address] [id number] [address] [place] [id number] 10 Feb, 2009 [facility] [address] [id number] [address] [place] [id number] 10 Feb, 2009 [facility] [address] [id number] [address] [place] [address], [place] [address] 22 Jan, 2009 [facility] [address] [id number] [address] [place] [address], [place] [address] 13 Jan, 2009 [facility] [address] [id number] [address] [place] [id number] 13 Jan, 2009 [facility] [address] [id number] [address] [place] [id number] Jan, [facility] [address] [facility] [id number] [address] [place] [address] August, IMMUNIZATIONS No Known Immunizations SOCIAL HISTORY Never Assessed REASON FOR VISIT [place] [place] VITAL SIGNS MEDICATIONS Unknown [...] age 6 Hospitalization History surgery Hospitalization History [facility], [facility] few times for BH
--- NOTE | 2019-09-29 10:57 | Progress Note-Post Operative ---
Post-Operative Progess Note Surgeon (s)/Conveyor Belt Repairer (s) Surgeon AL VIEYRA DO Conveyor Belt Repairer: na Pre-Operative Diagnosis screening colonoscopy Post-Operative Diagnosis ascending colon mass Procedure & Operative Findings Date of Procedure 09/29/19 Procedure Performed/Findings colonoscopy with cold biopsies of mass and injection of bella ink Anesthesia Type per research professor Estimated Blood Loss Estimated blood loss (mL): scant Specimens/Packing Specimens Removed ascending colon mass AL VIEYRA DO Sep 29, 2019 10:57
--- OUTSIDE RECORDS SUMMARY | 2019-09-29 10:57 | XMS REPORT ---
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 Active 36766254 Problem Open-angle glaucoma of both eyes, unspecified glaucoma stage, unspecified open-angle glaucoma type H40.10X0 Acti ve 97801651 Problem Adjustment disorder, unspecified type F43.20 Active 97104956 Problem Obstructive sleep apnea G47.33 Active 93544274 Problem Hypertensive retinopathy of both eyes H35.033 Active 1790151 Problem Type 2 diabetes mellitus with complication E11.8 Active 04434268 Problem Essential hypertension I10 Active 02556727 Problem Diabetes E11.9 Active 23579081 Problem Bipolar disorder, in partial remission, most rec ent episode manic F31.73 Active 90173285 Problem Intermittent explosive disorder in adult F63.81 Active 74358625 Problem Other diabetic neurological complication associated with type 2 diabetes mellitus E11.49 Active 403733422 Problem Depression F32.9 Active 10270664 Problem Neuropathy G62.9 Active 714848710 Problem Intermittent explosive disorder F63.81 Active 74293478 Problem Bipolar disorder, unspecified F31.9 Active 42428001 Problem Mild intellectual disability F70 A ctive 49189285 Problem Reactive airway disease, mild intermittent, uncomplicated J45.20 Active 323736936 Problem Gastroesophageal reflux disease without esophagitis K21.9 Active 014217833 ALLERGIES No Information ENCOUNTERS Encounter Location Date Diagnosis [facility] [address] [id number] [place] [address] August, [facility] [address] [id number] [address] [place] [address] [phone] August, [facility] [address] [facility] [id number] [address] [place] [address] Jul, [facility] [address] [facility] [id number] [address] [place] [address] [phone] Jul, Caries K02.9 [facility] [address] [facility] [id number] [address] [place] [address] Jul, Type 2 diabetes mellitus wit h complication E11.8 ; Tobacco abuse Z72.0 and Bipolar disorder, unspecified F31.9 [facility] [address] [facility] [id number] [address] [place] [phone] Jun, [facility] [address] [facility] [id number] [address] [place] [address] [phone] Jun, Dental examination Z01.20 an d Oral health maintenance status requiring routine preventive dental care K08.9 [facility] [address] [facility] [id number] [address] [place] [address] May, Bilateral impacted cerumen H 61.23 [facility] [address] [facility] [id number] [address] [place] [address] Apr, Bipolar disorder, unspecifie d F31.9 ; Intermittent explosive disorder in adult F63.81 ; Type 2 diabetes mellitus with complication E11.8 ; Tobacco abuse Z72.0 and Colon cancer screening Z12.11 [facility] [address] [facility] [id number] [address] [place] [phone] Apr, Onychomycosis B35.1 and Othe r diabetic neurological complication associated with type 2 diabetes mellitus E11.49 [facility] [address] [facility] [id number] [address] [place] [address] Apr, Intermittent explosive disor salvatore in adult F63.81 ; Bipolar disorder, unspecified F31.9 and Mild intellectual disability F70 [facility] [address] [facility] [id number] [address] [place] [phone] 03 Mar, 2018 Diabetes E11.9 [facility] [address] [facility] [id number] [address] [place] [phone] Jan, Encounter for immunization Z 23 [facility] [address] [facility] [id number] [address] [place] [phone] 12 Jan, 2018 Tinea pedis of both feet B35 .3 ; Other diabetic neurological complication associated with type 2 diabetes mellitus E11.49 and Onychomycosis B35.1 [place] [address] [facility] [id number] [address] [place] [phone] Nov, Type 2 diabetes mellitus wit h complication E11.8 [place] [address] [facility] [id number] [address] [place] [phone] Nov, [place] [address] [place] [id number] [place] [phone] Oct, Intermittent explosive disor salvatore in adult F63.81 ; Bipolar disorder, unspecified F31.9 and Mild intellectual disability F70 [place] [address] [place] [id number] [address] [place] [address] Oct, [facility] [id number] [place] [address] [phone] Oct, Dental examination Z01.20 [place] [address] [place] [id number] [address] [place] [phone] Oct, Onychomycosis B35.1 and Othe r diabetic neurological complication associated with type 2 diabetes mellitus E11.49 [place] [address] [facility] [id number] [address] [place] [address] Sep, Type 2 diabetes mellitus wit h complication E11.8 and Colon cancer screening Z12.11 [facility] [address] [facility] [id number] [address] [place] [phone] Sep, Type 2 diabetes mellitus wit h complication E11.8 ; Colon cancer screening Z12.11 and Neuropathy G62.9 [facility] [address] [facility] [id number] [address] [place] [phone] August, Diabetes E11.9 [facility] [address] [id number] [address] [place] [address] [phone] Jul, Dental examination Z01.20 [facility] [address] [facility] [id number] [address] [place] [address] May, Mild intellectual disability F70 [facility] [address] [facility] [id number] [address] [place] [address] May, Mild intellectual disability F70 ; High risk medication use Z79.899 ; Intermittent explosive disorder in adult F63.81 and Bipolar disorder, unspecified F31.9 [facility] [address] [facility] [id number] [address] [place] [phone] May, [facility] [address] [facility] [id number] [address] [place] [phone] May, [facility] [address] [place] [id number] [address] [place] [phone] Apr, Type 2 diabetes mellitus wit h complication E11.8 ; Mild intellectual disability F70 ; Gastroesophageal reflux disease without esophagitis K21.9 ; Reactive airway disease, mild intermittent, uncomplicated J45.20 and Tobacco abuse Z72.0 [facility] [address] [place] [id number] [address] [place] [phone] Apr, High risk medication use Z79 .899 ; Mild intellectual disability F70 ; Intermittent explosive disorder in adult F63.81 and Bipolar disorder, unspecified F31.9 [facility] [address] [id number] [address] [place] [address] [phone] Mar, Dental examination Z01.20 [facility] [address] [facility] [id number] [address] [place] [address] [phone] Mar, Encounter for dental exam an d cleaning w/o abnormal findings Z01.20 [facility] [address] [facility] [id number] [address] [place] [phone] Jan, [facility] [address] [facility] [id number] [address] [place] [phone] Jan, [facility] [address] [id number] [address] [place] [phone] 10 Jan, 2017 Mild intellectual disability F70 ; Bipolar disorder, unspecified F31.9 and Intermittent explosive disorder in adult F63.81 [facility] [address] [id number] [address] [place] [phone] 02 Jan, 2017 Diabetes E11.9 [facility] [address] [id number] [address] [place] [address] [id number] 13 Dec, 2016 Encounter for dental examina tion and cleaning without abnormal findings Z01.20 [facility] [address] [id number] [address] [place] [phone] 12 Dec, 2016 Bipolar disorder, unspecifie d F31.9 ; Intermittent explosive disorder in adult F63.81 and Mild intellectual disability F70 [facility] [address] [id number] [address] [place] [phone] Nov, Diabetes E11.9 [facility] [address] [id number] [address] [place] [address] Nov, [facility] [address] [id number] [address] [place] [phone] 14 Nov, 2016 Diabetes E11.9 and Colon can cer screening Z12.[id number] [place] [address] [phone] Sep, Dental examination Z01.20 [facility] [address] [id number] [address] [place] [address] [phone] Sep, Encounter for dental examina tion and cleaning without abnormal findings Z01.20 [facility] [address] [id number] [address] [place] [phone] 13 Sep, 2016 Bipolar disorder, unspecifie d F31.9 [facility] [address] [id number] [address] [place] [phone] Sep, Bipolar disorder, unspecifie d F31.9 [facility] [address] [id number] [address] [place] [phone] Jul, [facility] [address] [id number] [address] [place] [phone] Jul, Type 2 diabetes mellitus wit h complication E11.8 [facility] [place] [id number] [facility] [address] [id number] [phone] 15 Jun, 2016 Dental examination Z01.20 [facility] [address] [id number] [address] [place] [address] [phone] Jun, Encounter for dental examina tion and cleaning without abnormal findings Z01.20 [facility] [address] [id number] [address] [place] [phone] 18 Apr, 2016 Sports physical Z02.5 [facility] [address] [id number] [address] [place] [phone] 14 Mar, 2016 Bipolar disorder, in partial remission, most recent episode manic F31.73 and Intermittent explosive disorder in adult F63.81 [facility] [address] [id number] [address] [place] [phone] 08 Mar, 2016 [facility] [address] [id number] [address] [place] [phone] 06 Mar, 2016 Diabetes E11.9 [facility] [address] [id number] [address] [place] [address] [phone] Feb, Encounter for dental examina tion and cleaning without abnormal findings Z01.20 [facility] [address] [id number] [address] [place] [phone] 22 Dec, 2015 Nocturnal hypoxemia G47.34 a nd Encounter for immunization Z23 [facility] [address] [id number] [address] [place] [phone] 15 Dec, 2015 [facility] [address] [id number] [address] [place] [phone] Dec, [facility] [address] [id number] [address] [place] [phone] Dec, Bipolar disorder, unspecifie d F31.9 [facility] [address] [id number] [address] [place] [address] [phone] Oct, Encounter for dental examina tion and cleaning without abnormal findings Z01.20 [facility] [address] [id number] [id number] 13 Oct, 2015 Dental examination Z01.20 [facility] [address] [facility] [id number] [address] [place] [phone] 07 Oct, 2015 Diabetes E11.9 [facility] [address] [facility] [id number] [address] [place] [phone] Oct, Diabetes E11.9 ; Reactive ai rway disease, mild intermittent, uncomplicated J45.20 and Tobacco abuse Z72.0 [facility] [address] [place] [id number] [address] [place] [phone] Sep, Bipolar disorder, unspecifie d F31.9 and Depression F32.9 [facility] [id number] [place] [phone] Sep, [facility] [address] [id number] August, Tinea pedis of both feet B35 .3 and DM w/o complication type II, uncontrolled E11.65 [facility] [address] [place] [id number] [address] [place] [phone] Jul, [facility] [address] [place] [id number] [address] [place] [phone] Jul, [facility] [address] [facility] [id number] [address] [place] [phone] Jul, Obstructive sleep apnea G47. 33 [facility] [address] [place] [id number] [address] [place] [phone] Jun, Diabetes E11.9 [facility] [address] [facility] [id number] [address] [place] [phone] Jun, [facility] [address] [id number] Jun, [place] [address] [address] Jun, Bipolar disorder, unspecifie d F31.9 and Mental retardation F79 [place] [address] [phone] Apr, [place] [address] [phone] Feb, Diabetes E11.9 ; Encounter f or immunization Z23 ; Cough R05 and Nicotine abuse Z72.[address] [id number] Jan, Bipolar disorder, unspecifie d F31.9 and Diabetes mellitus without mention of complication, type II or unspecified type, uncontrolled 250.02 [place] [address] [id number] Jan, [place] [address] [address] Dec, Reactive airway disease 493. 90 and Enuresis 788.30 [place] [address] [id number] Dec, [place] [address] [id number] Nov, [place] [address] [address] Nov, [place] [address] [address] Nov, Annual physical exam V70.0 ; Urinary incontinence 788.30 ; Diabetes 250.00 and Hypertension 401.9 [place] [address] [place] [id number] [address] [place] [phone] Oct, Diabetes mellitus without me ntion of complication, type II or unspecified type, uncontrolled 250.02 [place] [address] [place] [id number] [address] [place] [phone] Oct, Diabetes mellitus without me ntion of complication, type II or unspecified type, uncontrolled 250.02 [facility] [address] [id number] [address] [place] [phone] Oct, Diabetes mellitus without me ntion of complication, type II or unspecified type, uncontrolled 250.02 [facility] [address] [id number] [address] [place] [phone] Oct, [facility] [address] [id number] [address] [place] [phone] Oct, [facility] [address] [id number] [address] [place] [phone] Oct, Bipolar disorder, unspecifie d 296.80 [facility] [address] [id number] [address] [place] [address] [id number] Sep, Dental examination V72.2 [facility] [address] [id number] [address] [place] [phone] August, [facility] [id number] [place] [address] [id number] August, Dental examination V72.2 [facility] [address] [id number] [address] [place] [phone] August, [facility] [address] [id number] [address] [place] [phone] Jul, [facility] [address] [id number] [address] [place] [phone] Jul, [facility] [address] [id number] [address] [place] [phone] Jun, [facility] [address] [id number] [address] [place] [phone] Jun, [facility] [address] [id number] [address] [place] [phone] Jun, [facility] [address] [id number] [address] [place] [address], [place] [address] Jun, 2014 [facility] [address] [id number] [address] [place] [address], [place] [address] 23 May, 2014 [facility] [address] [id number] [address] [place] [address], [place] [address] 23 May, 2014 [facility] [address] [id number] [address] [place] [address], [place] [address] 16 May, 2014 [facility] [address] [id number] [address] [place] [address], [place] [address] 16 May, 2014 [facility] [address] [id number] [address] [place] [address], [place] [address] 16 May, 2014 [facility] [address] [id number] [address] [place] [address], [place] [address] 16 May, 2014 [facility] [address] [id number] [address] [place] [address], [place] [address] 16 May, 2014 [facility] [address] [id number] [address] [place] [address], [place] [address] 16 May, 2014 [facility] [address] [id number] [address] [place] [address], [place] [address] 16 May, 2014 [facility] [address] [id number] [address] [place] [address], [place] [address] 16 May, 2014 [facility] [address] [id number] [address] [place] [address], [place] [address] 16 May, 2014 [facility] [address] [id number] [address] [place] [address], [place] [address] 16 May, 2014 [facility] [address] [id number] [address] [place] [address], [place] [address] 16 May, 2014 [facility] [address] [id number] [address] [place] [address], [place] [address] 16 May, 2014 [facility] [address] [id number] [address] [place] [address], [place] [address] May, [facility] [address] [id number] [address] [place] [address], [place] [address] Apr, [facility] [address] [id number] [address] [place] [address], [place] [address] Apr, [facility] [address] [id number] [address] [place] [address], [place] [address] Apr, [facility] [address] [id number] [address] [place] [address], [place] [address] Apr, [facility] [address] [id number] [address] [place] [address], [place] [address] Apr, [facility] [address] [id number] [address] [place] [address], [place] [address] Apr, [facility] [address] [id number] [address] [place] [address], [place] [address] Apr, [facility] [address] [id number] [address] [place] [address], [place] [address] Apr, [facility] [address] [id number] [address] [place] [address], [place] [address] Apr, [facility] [address] [id number] [address] [place] [address], [place] [address] Apr, [facility] [address] [id number] [address] [place] [address], [place] [address] Apr, [facility] [address] [id number] [address] [place] [address], [place] [address] Apr, [facility] [address] [id number] [address] [place] [address], [place] [address] Mar, [facility] [address] [id number] [address] [place] [address], [place] [address] Mar, [facility] [address] [id number] [address] [place] [address], [place] [address] Mar, [facility] [address] [id number] [address] [place] [address], [place] [address] 10 Mar, 2014 [facility] [address] [id number] [address] [place] [address], [place] [address] 10 Mar, 2014 [facility] [address] [id number] [address] [place] [address], [place] [address] Mar, [facility] [address] [id number] [address] [place] [address], [place] [address] Feb, [facility] [address] [id number] [address] [place] [address], [place] [address] Feb, [facility] [address] [id number] [address] [place] [address], [place] [address] Feb, [facility] [address] [id number] [address] [place] [address], [place] [address] Feb, [facility] [address] [id number] [address] [place] [address], [place] [address] 14 Jan, 2014 [facility] [address] [id number] [address] [place] [address], [place] [address] 14 Jan, 2014 [facility] [address] [id number] [address] [place] [address], [place] [address] 14 Jan, 2014 [facility] [address] [id number] [address] [place] [address], [place] [address] 14 Jan, 2014 [facility] [address] [id number] [address] [place] [address], [place] [address] 22 Dec, 2013 [facility] [address] [id number] [address] [place] [address], [place] [address] 22 Dec, 2013 [facility] [address] [id number] [address] [place] [address], [place] [address] 15 Dec, 2013 [facility] [address] [id number] [address] [place] [address], [place] [address] 15 Dec, 2013 [facility] [address] [id number] [address] [place] [address] Nov, [facility] [address] [id number] [address] [place] [address], [place] [address] Nov, [facility] [address] [id number] [address] [place] [address], [place] [address] Nov, [facility] [address] [id number] [address] [place] [address], [place] [address] Nov, [facility] [address] [id number] [address] [place] [address], [place] [address] Nov, [facility] [address] [id number] [address] [place] [address], [place] [address] Nov, [facility] [address] [id number] [address] [place] [address], [place] [address] Nov, [facility] [address] [id number] [address] [place] [address], [place] [address] Oct, [facility] [address] [id number] [address] [place] [address], [place] [address] Oct, [facility] [address] [id number] [address] [place] [address], [place] [address] Oct, [facility] [address] [id number] [address] [place] [address], [place] [address] Oct, [facility] [address] [id number] [address] [place] [address], [place] [address] Oct, [facility] [address] [id number] [address] [place] [address], [place] [address] Oct, [facility] [address] [id number] [address] [place] [address], [place] [address] Oct, [facility] [address] [id number] [address] [place] [address], [place] [address] Sep, [facility] [address] [id number] [address] [place] [address], [place] [address] Sep, [facility] [address] [id number] [address] [place] [address], [place] [address] Sep, [facility] [address] [id number] [address] [place] [address], [place] [address] Sep, [facility] [address] [id number] [address] [place] [address], [place] [address] Sep, [facility] [address] [id number] [address] [place] [address], [place] [address] Jul, [facility] [address] [id number] [address] [place] [address], [place] [address] Jul, [facility] [address] [id number] [address] [place] [address], [place] [address] Jul, [facility] [address] [id number] [address] [place] [address], [place] [address] Jul, [facility] [address] [id number] [address] [place] [address], [place] [address] Jul, [facility] [address] [id number] [address] [place] [address], [place] [address] Jul, [facility] [address] [id number] [address] [place] [address], [place] [address] Jul, [facility] [address] [id number] [address] [place] [address], [place] [address] Jul, [facility] [address] [id number] [address] [place] [address], [place] [address] Jul, [facility] [address] [id number] [address] [place] [address], [place] [address] Jul, [facility] [address] [id number] [address] [place] [address], [place] [address] Jul, [facility] [address] [id number] [address] [place] [address], [place] [address] Jul, [facility] [address] [id number] [address] [place] [address], [place] [address] Jun, [facility] [address] [id number] [address] [place] [address], [place] [address] Jun, [facility] [address] [id number] [address] [place] [address], [place] [address] Jun, [facility] [address] [id number] [address] [place] [address], [place] [address] Jun, [facility] [address] [id number] [address] [place] [address], [place] [address] Jun, [facility] [address] [id number] [address] [place] [address], [place] [address] Jun, [facility] [address] [id number] [address] [place] [address], [place] [address] Jun, [facility] [address] [id number] [address] [place] [address], [place] [address] Jun, [facility] [address] [id number] [address] [place] [address], [place] [address] May, [facility] [address] [id number] [address] [place] [address], [place] [address] May, [facility] [address] [id number] [address] [place] [address], [place] [address] May, [facility] [address] [id number] [address] [place] [address], [place] [address] May, [facility] [address] [id number] [address] [place] [address], [place] [address] May, [facility] [address] [id number] [address] [place] [address], [place] [address] May, [facility] [address] [id number] [address] [place] [address], [place] [address] May, [facility] [address] [id number] [address] [place] [address], [place] [address] May, [facility] [address] [id number] [address] [place] [address], [place] [address] Apr, [facility] [address] [id number] [address] [place] [address], [place] [address] Apr, [facility] [address] [id number] [address] [place] [address], [place] [address] Apr, [facility] [address] [id number] [address] [place] [address], [place] [address] Apr, [facility] [address] [id number] [address] [place] [address], [place] [address] Mar, [facility] [address] [id number] [address] [place] [address], [place] [address] Mar, [facility] [address] [id number] [address] [place] [address], [place] [address] Mar, [facility] [address] [id number] [address] [place] [address], [place] [address] Feb, [facility] [address] [id number] [address] [place] [address], [place] [address] Feb, [facility] [address] [id number] [address] [place] [address], [place] [address] Feb, [facility] [address] [id number] [address] [place] [address], [place] [address] Feb, [facility] [address] [id number] [address] [place] [address], [place] [address] Feb, [facility] [address] [id number] [address] [place] [address], [place] [address] Feb, [facility] [address] [id number] [address] [place] [address], [place] [address] Jan, [facility] [address] [id number] [address] [place] [address], [place] [address] Jan, [facility] [address] [id number] [address] [place] [address], [place] [address] Jan, [facility] [address] [id number] [address] [place] [address], [place] [address] Jan, [facility] [address] [id number] [address] [place] [address], [place] [address] Jan, [facility] [address] [id number] [address] [place] [address], [place] [address] Jan, [facility] [address] [id number] [address] [place] [address], [place] [address] Jan, [facility] [address] [id number] [address] [place] [address], [place] [address] Dec, [facility] [address] [id number] [address] [place] [address], [place] [address] 16 Dec, 2012 [facility] [address] [id number] [address] [place] [address], [place] [address] Dec, [facility] [address] [id number] [address] [place] [address], [place] [address] Dec, [facility] [address] [id number] [address] [place] [address], [place] [address] Nov, [facility] [address] [id number] [address] [place] [address], [place] [address] Nov, [facility] [address] [id number] [address] [place] [address], [place] [address] Nov, [facility] [address] [id number] [address] [place] [address], [place] [address] Nov, [facility] [address] [id number] [address] [place] [address], [place] [address] Nov, [facility] [address] [id number] [address] [place] [address], [place] [address] Nov, [facility] [address] [id number] [address] [place] [address], [place] [address] Nov, [facility] [address] [id number] [address] [place] [address], [place] [address] Oct, [facility] [address] [id number] [address] [place] [address], [place] [address] Oct, [facility] [address] [id number] [address] [place] [address], [place] [address] Oct, [facility] [address] [id number] [address] [place] [address], [place] [address] Oct, [facility] [address] [id number] [address] [place] [address], [place] [address] Oct, [facility] [address] [id number] [address] [place] [address], [place] [address] Oct, [facility] [address] [id number] [address] [place] [address], [place] [address] Oct, [facility] [address] [id number] [address] [place] [address], [place] [address] Oct, [facility] [address] [id number] [address] [place] [address], [place] [address] Sep, Suleiman PEREZ [address] [facility] [id number] [place] [id number] August, [facility] [address] [id number] [address] [place] [address], [place] [address] August, [facility] [address] [id number] [address] [place] [address], [place] [address] Jul, [facility] [address] [id number] [address] [place] [address], [place] [address] Jul, [facility] [address] [id number] [address] [place] [address], [place] [address] Jul, [facility] [address] [id number] [address] [place] [address], [place] [address] Jul, [facility] [address] [id number] [address] [place] [address], [place] [address] 18 Jul, 2012 [facility] [address] [id number] [address] [place] [address], [place] [address] 17 Jul, 2012 [facility] [address] [id number] [address] [place] [address], [place] [address] 16 Jul, 2012 [facility] [address] [id number] [address] [place] [address], [place] [address] 21 Jun, 2012 [facility] [address] [id number] [address] [place] [address], [place] [address] 18 Jun, 2012 [facility] [address] [id number] [address] [place] [address], [place] [address] 11 Jun, 2012 [facility] [address] [id number] [address] [place] [address], [place] [address] 04 Jun, 2012 [facility] [address] [id number] [address] [place] [address], [place] [address] 04 Jun, 2012 [facility] [address] [id number] [address] [place] [address], [place] [address] May, [facility] [address] [id number] [address] [place] [address], [place] [address] 18 May, 2012 [facility] [address] [id number] [address] [place] [address], [place] [address] 04 May, 2012 [facility] [address] [id number] [address] [place] [address], [place] [address] 15 Apr, 2012 [facility] [address] [id number] [address] [place] [address], [place] [address] 14 Apr, 2012 [facility] [address] [id number] [address] [place] [address], [place] [address] Apr, [facility] [address] [id number] [address] [place] [address], [place] [address] Mar, [facility] [address] [id number] [address] [place] [address], [place] [address] Mar, [facility] [address] [id number] [address] [place] [address], [place] [address] Mar, [facility] [address] [id number] [address] [place] [address], [place] [address] Mar, [facility] [address] [id number] [address] [place] [address], [place] [address] Mar, [facility] [address] [id number] [address] [place] [address], [place] [address] Mar, [facility] [address] [id number] [address] [place] [address], [place] [address] Feb, [facility] [address] [id number] [address] [place] [address], [place] [address] Feb, [facility] [address] [id number] [address] [place] [address], [place] [address] Jan, [facility] [address] [id number] [address] [place] [address], [place] [address] Jan, [facility] [address] [id number] [address] [place] [address], [place] [address] Dec, [facility] [address] [id number] [address] [place] [address], [place] [address] Nov, [facility] [address] [id number] [address] [place] [address], [place] [address] Nov, [facility] [address] [id number] [address] [place] [address], [place] [address] Nov, [facility] [address] [id number] [address] [place] [address], [place] [address] Nov, [facility] [address] [id number] [address] [place] [address], [place] [address] Oct, [facility] [address] [id number] [address] [place] [address], [place] [address] Oct, [facility] [address] [id number] [address] [place] [address], [place] [address] Oct, [facility] [address] [id number] [address] [place] [address], [place] [address] 15 Sep, 2011 [facility] [address] [id number] [address] [place] [address], [place] [address] 14 Sep, 2011 [facility] [address] [id number] [address] [place] [address], [place] [address] 05 Sep, 2011 [facility] [address] [id number] [address] [place] [address], [place] [address] August, [facility] [address] [id number] [address] [place] [address], [place] [address] August, [facility] [address] [id number] [address] [place] [address], [place] [address] Jul, [facility] [address] [id number] [address] [place] [address], [place] [address] 24 Jul, 2011 [facility] [address] [id number] [address] [place] [address], [place] [address] Jul, [facility] [address] [id number] [address] [place] [address], [place] [address] Jul, [facility] [address] [id number] [address] [place] [address], [place] [address] Jun, [facility] [address] [id number] [address] [place] [address], [place] [address] May, [facility] [address] [id number] [address] [place] [address], [place] [address] Apr, [facility] [address] [id number] [address] [place] [address], [place] [address] Apr, [facility] [address] [id number] [address] [place] [address], [place] [address] Apr, [facility] [address] [id number] [address] [place] [address], [place] [address] Apr, [facility] [address] [id number] [address] [place] [address] Apr, [facility] [address] [id number] [address] [place] [address], [place] [address] Apr, [facility] [address] [id number] [address] [place] [address], [place] [address] Mar, [facility] [address] [id number] [address] [place] [address], [place] [address] Mar, [facility] [address] [id number] [address] [place] [address], [place] [address] Feb, [facility] [address] [id number] [address] [place] [address], [place] [address] Feb, [facility] [address] [id number] [address] [place] [address], [place] [address] Feb, [facility] [address] [id number] [address] [place] [address], [place] [address] Feb, [facility] [address] [id number] [address] [place] [address], [place] [address] Jan, [facility] [address] [id number] [address] [place] [address], [place] [address] Jan, [facility] [address] [id number] [address] [place] [address], [place] [address] Jan, [facility] [address] [id number] [address] [place] [address], [place] [address] Jan, [facility] [address] [id number] [address] [place] [address], [place] [address] Nov, [facility] [address] [id number] [address] [place] [address], [place] [address] Mar, [facility] [address] [id number] [address] [place] [address], [place] [address] Mar, [facility] [address] [id number] [address] [place] [address], [place] [address] Feb, [facility] [address] [id number] [address] [place] [address] 15 Feb, 2010 [facility] [address] [id number] [address] [place] [address] Jan, [facility] [address] [id number] [address] [place] [address] Jan, [facility] [address] [id number] [address] [place] [address] 15 Sep, 2009 [facility] [address] [id number] [address] [place] [address] May, [facility] [address] [id number] [address] [place] [address] Apr, [facility] [address] [id number] [address] [place] [address] Mar, [facility] [address] [id number] [address] [place] [address] 15 Feb, 2009 [facility] [address] [id number] [address] [place] [address] Feb, [facility] [address] [id number] [address] [place] [address] Feb, [facility] [address] [id number] [address] [place] [address] Jan, [facility] [address] [id number] [address] [place] [phone] Jan, [facility] [address] [id number] [address] [place] [id number] Jan, [facility] [address] [id number] [address] [place] [phone] Jan, [facility] [address] [id number] [address] [place] [phone] August, IMMUNIZATIONS No Known Immunizations SOCIAL HISTORY Never Assessed [place] FOR [place]IT [place] [place] VITAL SIGNS MEDICATIONS Unknown [...] age 6 Hospitalization History surgery Hospitalization History [facility] treatment few times for BH
--- OUTSIDE RECORDS SUMMARY | 2019-09-29 10:57 | XMS REPORT ---
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 Active 12453697 Problem Open-angle glaucoma of both eyes, unspecified glaucoma stage, unspecified open-angle glaucoma type H40.10X0 Acti ve 23164815 Problem Adjustment disorder, unspecified type F43.20 Active 51865440 Problem Obstructive sleep apnea G47.33 Active 46015917 Problem Hypertensive retinopathy of both eyes H35.033 Active 7088140 Problem Type 2 diabetes mellitus with complication E11.8 Active 93813341 Problem Essential hypertension I10 Active 62660725 Problem Diabetes E11.9 Active 52540368 Problem Bipolar disorder, in partial remission, most rec ent episode manic F31.73 Active 37687872 Problem Intermittent explosive disorder in adult F63.81 Active 41544895 Problem Other diabetic neurological complication associated with type 2 diabetes mellitus E11.49 Active 878951277 Problem Depression F32.9 Active 90629633 Problem Neuropathy G62.9 Active 506513512 Problem Intermittent explosive disorder F63.81 Active 17761194 Problem Bipolar disorder, unspecified F31.9 Active 81389599 Problem Mild intellectual disability F70 A ctive 22384544 Problem Reactive airway disease, mild intermittent, uncomplicated J45.20 Active 203845802 Problem Gastroesophageal reflux disease without esophagitis K21.9 Active 542675403 ALLERGIES No Information ENCOUNTERS Encounter Location Date Diagnosis [facility] [address] [facility] [id number] [address] [place] [address] August, [facility] [address] [facility] [id number] [address] [place] [address] Jul, [facility] [address] [id number] [address] [place] [address] [id number] Jul, [facility] [address] [facility] [id number] [address] [place] [address] Jul, [facility] [address] [facility] [id number] [address] [place] [address] Jun, [facility] [address] [facility] [id number] [address] [place] [address] [id number] Jun, Dental examination Z01.20 an d Oral health maintenance status requiring routine preventive dental care K08.9 [facility] [address] [facility] [id number] [address] [place] [address] 11 May, 2018 Bilateral impacted cerumen H 61.23 [place] [address] [facility] [id number] [address] [place] [address] Apr, Bipolar disorder, unspecifie d F31.9 ; Intermittent explosive disorder in adult F63.81 ; Type 2 diabetes mellitus with complication E11.8 ; Tobacco abuse Z72.0 and Colon cancer screening Z12.11 [facility] [address] [facility] [id number] [address] [place] [address] Apr, Onychomycosis B35.1 and Othe r diabetic neurological complication associated with type 2 diabetes mellitus E11.49 [facility] [address] [facility] [id number] [address] [place] [address] Apr, Intermittent explosive disor salvatore in adult F63.81 ; Bipolar disorder, unspecified F31.9 and Mild intellectual disability F70 [facility] [address] [facility] [id number] [address] [place] [address] Mar, Diabetes E11.9 [facility] [address] [facility] [id number] [address] [place] [address] Jan, Encounter for immunization Z 23 [facility] [address] [facility] [id number] [address] [place] [address] Jan, Tinea pedis of both feet B35 .3 ; Other diabetic neurological complication associated with type 2 diabetes mellitus E11.49 and Onychomycosis B35.1 [facility] [address] [id number] [address] [place] [address] Nov, Type 2 diabetes mellitus wit h complication E11.8 [facility] [address] [id number] [address] [place] [address] Nov, [facility] [address] [facility] [id number] [address] [place] [address] Oct, Intermittent explosive disor salvatore in adult F63.81 ; Bipolar disorder, unspecified F31.9 and Mild intellectual disability F70 [facility] [address] [id number] [address] [place] [address] Oct, [facility] [address] [id number] [address] [place] [address] [phone] Oct, Dental examination Z01.20 [facility] [address] [facility] [id number] [address] [place] [address] Oct, Onychomycosis B35.1 and Othe r diabetic neurological complication associated with type 2 diabetes mellitus E11.49 [facility] [address] [id number] [address] [place] [address] Sep, Type 2 diabetes mellitus wit h complication E11.8 and Colon cancer screening Z12.11 [facility] [address] [id number] [address] [place] [address] Sep, Type 2 diabetes mellitus wit h complication E11.8 ; Colon cancer screening Z12.11 and Neuropathy G62.9 [facility] [address] [id number] [address] [place] [address] August, Diabetes E11.9 [facility] [address] [id number] [address] [place] [address] [phone] Jul, Dental examination Z01.20 [facility] [address] [id number] [address] [place] [address] 27 May, 2017 Mild intellectual disability F70 [facility] [address] [facility] [id number] [address] [place] [address] May, Mild intellectual disability F70 ; High risk medication use Z79.899 ; Intermittent explosive disorder in adult F63.81 and Bipolar disorder, unspecified F31.9 [facility] [address] [facility] [id number] [address] [place] [address] May, [facility] [address] [facility] [id number] [address] [place] [address] May, [facility] [address] [facility] [id number] [address] [place] [address] Apr, Type 2 diabetes mellitus wit h complication E11.8 ; Mild intellectual disability F70 ; Gastroesophageal reflux disease without esophagitis K21.9 ; Reactive airway disease, mild intermittent, uncomplicated J45.20 and Tobacco abuse Z72.0 [facility] [address] [facility] [id number] [address] [place] [address] Apr, High risk medication use Z79 .899 ; Mild intellectual disability F70 ; Intermittent explosive disorder in adult F63.81 and Bipolar disorder, unspecified F31.9 [facility] [address] [id number] Mar, Encounter for dental exam an d cleaning w/o abnormal findings Z01.20 [facility] [address] [id number] [address] [place] [address] [id number] Mar, Dental examination Z01.20 [facility] [address] [id number] [address] [place] [address] 12 Jan, 2017 [facility] [address] [facility] [id number] [address] [place] [address] Jan, [facility] [address] [facility] [id number] [address] [place] [address] Jan, Mild intellectual disability F70 ; Bipolar disorder, unspecified F31.9 and Intermittent explosive disorder in adult F63.81 [facility] [address] [id number] [address] [place] [address] 02 Jan, 2017 Diabetes E11.9 [facility] [address] [id number] [address] [place] [address] [id number] 13 Dec, 2016 Encounter for dental examina tion and cleaning without abnormal findings Z01.20 [facility] [address] [id number] [address] [place] [address] 12 Dec, 2016 Bipolar disorder, unspecifie d F31.9 ; Intermittent explosive disorder in adult F63.81 and Mild intellectual disability F70 [facility] [address] [id number] [address] [place] [address] Nov, Diabetes E11.9 [facility] [address] [id number] [address] [place] [address] Nov, [facility] [address] [id number] [address] [place] [address] Nov, Diabetes E11.9 and Colon can cer screening Z12.[id number] [place] [address] [id number] Sep, Dental examination Z01.20 [facility] [address] [id number] [address] [place] [address] [id number] 21 Sep, 2016 Encounter for dental examina tion and cleaning without abnormal findings Z01.20 [facility] [address] [id number] [address] [place] [address] Sep, Bipolar disorder, unspecifie d F31.9 [facility] [address] [id number] [address] [place] [address] Sep, Bipolar disorder, unspecifie d F31.9 [facility] [address] [id number] [address] [place] [address] Jul, [facility] [address] [id number] [address] [place] [address] Jul, Type 2 diabetes mellitus wit h complication E11.8 [facility] [address] [id number] [address] [place] [address] [id number] 15 Jun, 2016 Encounter for dental examina tion and cleaning without abnormal findings Z01.20 [facility] [address] [id number] [id number] 15 Jun, 2016 Dental examination Z01.20 [facility] [address] [id number] [address] [place] [phone] 18 Apr, 2016 Sports physical Z02.5 [facility] [address] [id number] [address] [place] [address] 14 Mar, 2016 Bipolar disorder, in partial remission, most recent episode manic F31.73 and Intermittent explosive disorder in adult F63.81 [facility] [address] [facility] [id number] [address] [place] [phone] 08 Mar, 2016 [facility] [address] [facility] [id number] [address] [place] [address] 06 Mar, 2016 Diabetes E11.9 [facility] [address] [id number] [address] [place] [address] [id number] Feb, Encounter for dental examina tion and cleaning without abnormal findings Z01.20 [facility] [address] [id number] [address] [place] [address] 22 Dec, 2015 Nocturnal hypoxemia G47.34 a nd Encounter for immunization Z23 [facility] [address] [id number] [address] [place] [phone] 15 Dec, 2015 [facility] [address] [id number] [address] [place] [address] Dec, [facility] [address] [id number] [address] [place] [address] Dec, Bipolar disorder, unspecifie d F31.9 [facility] [address] [id number] [address] [place] [address] [id number] Oct, Encounter for dental examina tion and cleaning without abnormal findings Z01.20 [facility] [address] [id number] [id number] Oct, Dental examination Z01.20 [facility] [address] [facility] [id number] [address] [place] [address] Oct, Diabetes E11.9 [place] [address] [place] [id number] [address] [place] [address] Oct, Diabetes E11.9 ; Reactive ai rway disease, mild intermittent, uncomplicated J45.20 and Tobacco abuse Z72.0 [place] [address] [address] Sep, Bipolar disorder, unspecifie d F31.9 and Depression F32.9 [place] [address] [address] Sep, [place] [address] [address] August, Tinea pedis of both feet B35 .3 and DM w/o complication type II, uncontrolled E11.65 [place] [id number] [place] [address] Jul, [place] [address] [address] Jul, [place] [address] [address] Jul, Obstructive sleep apnea G47. 33 [place] [address] [place] [id number] [address] [place] [address] Jun, Diabetes E11.9 [facility] [address] [place] [id number] [address] [place] [address] Jun, [facility] [address] [place] [id number] [address] [place] [address] Jun, [place] [address] [place] [id number] [address] [place] [phone] Jun, Bipolar disorder, unspecifie d F31.9 and Mental retardation F79 [place] [address] [place] [id number] [address] [place] [address] Apr, [place] [address] [address] Feb, Diabetes E11.9 ; Encounter f or immunization Z23 ; Cough R05 and Nicotine abuse Z72.0 [place] [address] [address] Jan, Bipolar disorder, unspecifie d F31.9 and Diabetes mellitus without mention of complication, type II or unspecified type, uncontrolled 250.02 [place] [address] [address] Jan, [place] [address] [address] Dec, Reactive airway disease 493. 90 and Enuresis 788.30 [place] [address] [address] Dec, [place] [address] [address] Nov, [place] [address] [address] Nov, [place] [address] [address] Nov, Annual physical exam V70.0 ; Urinary incontinence 788.30 ; Diabetes 250.00 and Hypertension 401.9 [place] [address] [place] [id number] [address] [place] [address] Oct, Diabetes mellitus without me ntion of complication, type II or unspecified type, uncontrolled 250.02 [place] [address] [place] [id number] [place] [address] Oct, Diabetes mellitus without me ntion of complication, type II or unspecified type, uncontrolled 250.02 [place] [address] [address] Oct, Diabetes mellitus without me ntion of complication, type II or unspecified type, uncontrolled 250.02 [facility] [address] [id number] [address] [place] [address] Oct, [facility] [address] [id number] [address] [place] [address] Oct, [facility] [address] [id number] [address] [place] [address] Oct, Bipolar disorder, unspecifie d 296.80 [facility] [address] [id number] [address] [place] [address] [id number] Sep, Dental examination V72.2 [facility] [address] [id number] [address] [place] [address] August, [facility] [address] [id number] [place] [address] [id number] August, Dental examination V72.2 [facility] [address] [id number] [address] [place] [address] August, [facility] [address] [id number] [address] [place] [address] Jul, [facility] [address] [id number] [address] [place] [address] Jul, [facility] [address] [id number] [address] [place] [address] Jun, [facility] [address] [id number] [address] [place] [address] Jun, [facility] [address] [id number] [address] [place] [address] Jun, [facility] [address] [id number] [address] [place] [address] Jun, [facility] [address] [id number] [address] [place] [address] May, [facility] [address] [id number] [address] [place] [address], [place] [address] May, 2014 [facility] [address] [id number] [address] [place] [address], [place] [address] 16 May, 2014 [facility] [address] [id number] [address] [place] [address], [place] [address] 16 May, 2014 [facility] [address] [id number] [address] [place] [address], [place] [address] 16 May, 2014 [facility] [address] [id number] [address] [place] [address], [place] [address] 16 May, 2014 [facility] [address] [id number] [address] [place] [address], [place] [address] May, 2014 [facility] [address] [id number] [address] [place] [address], [place] [address] 16 May, 2014 [facility] [address] [id number] [address] [place] [address], [place] [address] 16 May, 2014 [facility] [address] [id number] [address] [place] [address], [place] [address] May, 2014 [facility] [address] [id number] [address] [place] [address], [place] [address] 16 May, 2014 [facility] [address] [id number] [address] [place] [address], [place] [address] May, 2014 [facility] [address] [id number] [address] [place] [address], [place] [address] 16 May, 2014 [facility] [address] [id number] [address] [place] [address], [place] [address] 16 May, 2014 [facility] [address] [id number] [address] [place] [address], [place] [address] 16 May, 2014 [facility] [address] [id number] [address] [place] [address], [place] [address] Apr, [facility] [address] [id number] [address] [place] [address], [place] [address] Apr, [facility] [address] [id number] [address] [place] [address], [place] [address] Apr, [facility] [address] [id number] [address] [place] [address], [place] [address] Apr, [facility] [address] [id number] [address] [place] [address], [place] [address] Apr, [facility] [address] [id number] [address] [place] [address], [place] [address] Apr, [facility] [address] [id number] [address] [place] [address], [place] [address] Apr, [facility] [address] [id number] [address] [place] [address], [place] [address] Apr, [facility] [address] [id number] [address] [place] [address], [place] [address] Apr, [facility] [address] [id number] [address] [place] [address], [place] [address] Apr, [facility] [address] [id number] [address] [place] [address], [place] [address] Apr, [facility] [address] [id number] [address] [place] [address], [place] [address] Apr, [facility] [address] [id number] [address] [place] [address], [place] [address] Mar, [facility] [address] [id number] [address] [place] [address], [place] [address] Mar, [facility] [address] [id number] [address] [place] [address], [place] [address] Mar, [facility] [address] [id number] [address] [place] [address], [place] [address] Mar, [facility] [address] [id number] [address] [place] [address], [place] [address] Mar, [facility] [address] [id number] [address] [place] [address], [place] [address] Mar, [facility] [address] [id number] [address] [place] [address], [place] [address] Feb, [facility] [address] [id number] [address] [place] [address], [place] [address] Feb, [facility] [address] [id number] [address] [place] [address], [place] [address] Feb, [facility] [address] [id number] [address] [place] [address], [place] [address] Feb, [facility] [address] [id number] [address] [place] [address], [place] [address] 14 Jan, 2014 [facility] [address] [id number] [address] [place] [address], [place] [address] 14 Jan, 2014 [facility] [address] [id number] [address] [place] [address], [place] [address] 14 Jan, 2014 [facility] [address] [id number] [address] [place] [address], [place] [address] 14 Jan, 2014 [facility] [address] [id number] [address] [place] [address], [place] [address] 22 Dec, 2013 [facility] [address] [id number] [address] [place] [address], [place] [address] 22 Dec, 2013 [facility] [address] [id number] [address] [place] [address], [place] [address] 15 Dec, 2013 [facility] [address] [id number] [address] [place] [address], [place] [address] 15 Dec, 2013 [facility] [address] [id number] [address] [place] [address], [place] [address] Nov, [facility] [address] [id number] [address] [place] [address], [place] [address] Nov, [facility] [address] [id number] [facility] [place] [address] Nov, [facility] [address] [id number] [address] [place] [address], [place] [address] Nov, [facility] [address] [id number] [facility] [place] [address] Nov, [facility] [address] [id number] [address] [place] [address], [place] [address] Nov, [facility] [address] [id number] [address] [place] [address], [place] [address] Nov, [facility] [address] [id number] [address] [place] [address], [place] [address] Oct, [facility] [address] [id number] [address] [place] [address], [place] [address] Oct, [facility] [address] [id number] [address] [place] [address], [place] [address] Oct, [facility] [address] [id number] [address] [place] [address], [place] [address] Oct, [facility] [address] [id number] [address] [place] [address], [place] [address] Oct, [facility] [address] [id number] [address] [place] [address], [place] [address] Oct, [facility] [address] [id number] [address] [place] [address], [place] [address] Oct, [facility] [address] [id number] [address] [place] [address], [place] [address] Sep, [facility] [address] [id number] 20 [place] [address], [place] [address] Sep, [facility] [address] [id number] [address] [place] [address], [place] [address] Sep, [facility] [address] [id number] [address] [place] [address], [place] [address] Sep, [facility] [address] [id number] [address] [place] [address], [place] [address] Sep, [facility] [address] [id number] [address] [place] [address], [place] [address] Jul, [facility] [address] [id number] [address] [place] [address], [place] [address] Jul, [facility] [address] [id number] [address] [place] [address], [place] [address] Jul, [facility] [address] [id number] [address] [place] [address], [place] [address] Jul, [facility] [address] [id number] [address] [place] [address], [place] [address] Jul, [facility] [address] [id number] [address] [place] [address], [place] [address] Jul, [facility] [address] [id number] [address] [place] [address], [place] [address] Jul, [facility] [address] [id number] [address] [place] [address], [place] [address] Jul, [facility] [address] [id number] [address] [place] [address], [place] [address] Jul, [facility] [address] [id number] [address] [place] [address], [place] [address] Jul, [facility] [address] [id number] [address] [place] [address], [place] [address] Jul, [facility] [address] [id number] [address] [place] [address], [place] [address] Jul, [facility] [address] [id number] [address] [place] [address], [place] [address] Jun, [facility] [address] [id number] [address] [place] [address], [place] [address] Jun, [facility] [address] [id number] [address] [place] [address], [place] [address] Jun, [facility] [address] [id number] [address] [place] [address], [place] [address] Jun, [facility] [address] [id number] [address] [place] [address], [place] [address] Jun, [facility] [address] [id number] [address] [place] [address], [place] [address] Jun, [facility] [address] [id number] [address] [place] [address], [place] [address] Jun, [facility] [address] [id number] [address] [place] [address], [place] [address] Jun, [facility] [address] [id number] [address] [place] [address], [place] [address] May, [facility] [address] [id number] [address] [place] [address], [place] [address] May, [facility] [address] [id number] [address] [place] [address], [place] [address] May, [facility] [address] [id number] [address] [place] [address], [place] [address] May, [facility] [address] [id number] [address] [place] [address], [place] [address] May, [facility] [address] [id number] [address] [place] [address], [place] [address] May, [facility] [address] [id number] [address] [place] [address], [place] [address] May, [facility] [address] [id number] [address] [place] [address], [place] [address] May, [facility] [address] [id number] [address] [place] [address], [place] [address] Apr, [facility] [address] [id number] [address] [place] [address], [place] [address] Apr, [facility] [address] [id number] [address] [place] [address], [place] [address] Apr, [facility] [address] [id number] [address] [place] [address], [place] [address] Apr, [facility] [address] [id number] [address] [place] [address], [place] [address] Mar, [facility] [address] [id number] [address] [place] [address], [place] [address] Mar, [facility] [address] [id number] [address] [place] [address], [place] [address] Mar, [facility] [address] [id number] [address] [place] [address], [place] [address] Feb, [facility] [address] [id number] [address] [place] [address], [place] [address] Feb, [facility] [address] [id number] [address] [place] [address], [place] [address] Feb, [facility] [address] [id number] [address] [place] [address], [place] [address] Feb, [facility] [address] [id number] [address] [place] [address], [place] [address] Feb, [facility] [address] [id number] [address] [place] [address], [place] [address] Feb, [facility] [address] [id number] [address] [place] [address], [place] [address] Jan, [facility] [address] [id number] [address] [place] [address], [place] [address] Jan, [facility] [address] [id number] [address] [place] [address], [place] [address] Jan, [facility] [address] [id number] [address] [place] [address], [place] [address] Jan, [facility] [address] [id number] [address] [place] [address], [place] [address] Jan, [facility] [address] [id number] [address] [place] [address], [place] [address] Jan, [facility] [address] [id number] [address] [place] [address], [place] [address] Jan, [facility] [address] [id number] [address] [place] [address], [place] [address] Dec, [facility] [address] [id number] [address] [place] [address], [place] [address] 16 Dec, 2012 [facility] [address] [id number] [address] [place] [address], [place] [address] Dec, [facility] [address] [id number] [address] [place] [address], [place] [address] Dec, [facility] [address] [id number] [address] [place] [address], [place] [address] Nov, [facility] [address] [id number] [address] [place] [address], [place] [address] Nov, [facility] [address] [id number] [address] [place] [address], [place] [address] Nov, [facility] [address] [id number] [address] [place] [address], [place] [address] Nov, [facility] [address] [id number] [address] [place] [address], [place] [address] Nov, [facility] [address] [id number] [address] [place] [address], [place] [address] Nov, [facility] [address] [id number] [address] [place] [address], [place] [address] Nov, [facility] [address] [id number] [address] [place] [address], [place] [address] Oct, [facility] [address] [id number] [address] [place] [address], [place] [address] Oct, [facility] [address] [id number] [address] [place] [address], [place] [address] Oct, [facility] [address] [id number] [address] [place] [address], [place] [address] Oct, [facility] [address] [id number] [address] [place] [address], [place] [address] Oct, [facility] [address] [id number] [address] [place] [address], [place] [address] Oct, [facility] [address] [id number] [address] [place] [address], [place] [address] Oct, [facility] [address] [id number] [address] [place] [address], [place] [address] Oct, [facility] [address] [id number] [address] [place] [address], [place] [address] Sep, Suleiman PEREZ [facility] [id number] [place] [id number] August, [facility] [address] [id number] [address] [place] [address], [place] [address] August, [facility] [address] [id number] [address] [place] [address], [place] [address] Jul, [facility] [address] [id number] [address] [place] [address], [place] [address] Jul, [facility] [address] [id number] [address] [place] [address], [place] [address] Jul, [facility] [address] [id number] [address] [place] [address], [place] [address] Jul, [facility] [address] [id number] [address] [place] [address], [place] [address] Jul, [facility] [address] [id number] [address] [place] [address], [place] [address] 17 Jul, 2012 [facility] [address] [id number] [address] [place] [address], [place] [address] 16 Jul, 2012 [facility] [address] [id number] [address] [place] [address], [place] [address] Jun, [facility] [address] [id number] [address] [place] [address], [place] [address] Jun, [facility] [address] [id number] [address] [place] [address], [place] [address] Jun, [facility] [address] [id number] [address] [place] [address], [place] [address] 04 Jun, 2012 [facility] [address] [id number] [address] [place] [address], [place] [address] 04 Jun, 2012 [facility] [address] [id number] [address] [place] [address], [place] [address] May, [facility] [address] [id number] [address] [place] [address], [place] [address] 18 May, 2012 [facility] [address] [id number] [address] [place] [address], [place] [address] 04 May, 2012 [facility] [address] [id number] [address] [place] [address], [place] [address] Apr, [facility] [address] [id number] [address] [place] [address], [place] [address] Apr, [facility] [address] [id number] [address] [place] [address], [place] [address] Apr, [facility] [address] [id number] [address] [place] [address], [place] [address] Mar, [facility] [address] [id number] [address] [place] [address], [place] [address] Mar, [facility] [address] [id number] [address] [place] [address], [place] [address] Mar, [facility] [address] [id number] [address] [place] [address], [place] [address] Mar, [facility] [address] [id number] [address] [place] [address], [place] [address] Mar, [facility] [address] [id number] [address] [place] [address], [place] [address] Mar, [facility] [address] [id number] [address] [place] [address], [place] [address] Feb, [facility] [address] [id number] [address] [place] [address], [place] [address] Feb, [facility] [address] [id number] [address] [place] [address], [place] [address] Jan, [facility] [address] [id number] [address] [place] [address], [place] [address] Jan, [facility] [address] [id number] [address] [place] [address], [place] [address] Dec, [facility] [address] [id number] [address] [place] [address], [place] [address] Nov, [facility] [address] [id number] [address] [place] [address], [place] [address] Nov, [facility] [address] [id number] [address] [place] [address], [place] [address] Nov, [facility] [address] [id number] [address] [place] [address], [place] [address] Nov, [facility] [address] [id number] [address] [place] [address], [place] [address] Oct, [facility] [address] [id number] [address] [place] [address], [place] [address] Oct, [facility] [address] [id number] [address] [place] [address], [place] [address] Oct, [facility] [address] [id number] [address] [place] [address], [place] [address] Sep, [facility] [address] [id number] [address] [place] [address], [place] [address] Sep, [facility] [address] [id number] [address] [place] [address], [place] [address] Sep, [facility] [address] [id number] [address] [place] [address], [place] [address] August, [facility] [address] [id number] [address] [place] [address], [place] [address] August, [facility] [address] [id number] [address] [place] [address], [place] [address] Jul, [facility] [address] [id number] [address] [place] [address], [place] [address] Jul, [facility] [address] [id number] [address] [place] [address], [place] [address] Jul, [facility] [address] [id number] [address] [place] [address], [place] [address] Jul, [facility] [address] [id number] [address] [place] [address], [place] [address] Jun, [facility] [address] [id number] [address] [place] [address], [place] [address] May, [facility] [address] [id number] [address] [place] [address], [place] [address] Apr, [facility] [address] [id number] [address] [place] [address], [place] [address] Apr, [facility] [address] [id number] [address] [place] [address], [place] [address] Apr, [facility] [address] [id number] [address] [place] [address], [place] [address] Apr, [facility] [address] [id number] [address] [place] [address], [place] [address] Apr, [facility] [address] [id number] [address] [place] [address], [place] [address] Apr, [facility] [address] [id number] [address] [place] [address] Mar, [facility] [address] [id number] [address] [place] [address], [place] [address] Mar, [facility] [address] [id number] [address] [place] [address] Feb, [facility] [address] [id number] [address] [place] [address], [place] [address] Feb, [facility] [address] [id number] [address] [place] [address], [place] [address] Feb, [facility] [address] [id number] [address] [place] [address], [place] [address] Feb, [facility] [address] [id number] [address] [place] [address], [place] [address] Jan, [facility] [address] [id number] [address] [place] [address] Jan, [facility] [address] [id number] [address] [place] [address], [place] [address] Jan, [facility] [address] [id number] [address] [place] [address], [place] [address] Jan, [facility] [address] [id number] [address] [place] [address] Nov, [facility] [address] [id number] [address] [place] [address], [place] [address] Mar, [facility] [address] [id number] [address] [place] [address] Mar, [facility] [address] [id number] [address] [place] [address], [place] [address] 30 Feb, 2010 [facility] [address] [id number] [address] [place] [address], [place] [address] 15 Feb, 2010 [facility] [address] [id number] [address] [place] [address], [place] [address] 19 Jan, 2010 [facility] [address] [id number] [address] [place] [address] Jan, [facility] [address] [id number] [address] [place] [address] Sep, [facility] [address] [id number] [address] [place] [address] May, [facility] [address] [id number] [address] [place] [address] Apr, [facility] [address] [id number] [address] [place] [address] Mar, [facility] [address] [id number] [address] [place] [address] Feb, [facility] [address] [id number] [address] [place] [address] Feb, [facility] [address] [id number] [address] [place] [address] Feb, [facility] [address] [id number] [address] [place] [address] Jan, [facility] [address] [id number] [address] [place] [address] Jan, [facility] [address] [id number] [address] [place] [address] Jan, [facility] [address] [id number] [address] [place] [address] Jan, [facility] [address] [id number] [address] [place] [address] August, IMMUNIZATIONS No Known Immunizations SOCIAL HISTORY Never Assessed REASON FOR VISIT EMR-[facility] [place] PLAN OF CARE VITAL SIGNS MEDICATIONS Medication Instructions Dosage Frequency Start Date End Date Duration S tatus Ventolin HFA 90 mcg/actuation inhale 2 p uff by Inhalation route as needed 1 time per day Q hs and PRN Dec, Ac tive Albuterol Sulfate 2.5 mg /3 mL (0.083 %) 1 Each by Inhalation route 4 times per day for cough and wheeze PRN for wheezing or cough Dec, Active Tamiflu 75 mg 1 capsule by Oral ro gio 1 time per day for 10 day(s) Prophylaxis Dosing May, Active Folic Acid 1 mg take 0.5 tablet by O ral route 1 time per day Must attend appt 4-3-15 Jun, Active desmopressin 0.2 mg 3 Tablet by Oral route 1 time per day qHS Jul, Active Fiber 3 Capsule by Oral route 1 time per day at 5 pm (GNP 0.52 gm cap) Oct, Active Actos 15 mg take 1 tablet (15 mg) by oral route once daily Feb, Active Enablex 15 mg 1 Tablet by Oral route 1 time per day 03 A 2013 Active Metamucil 3 Capsule by Oral route 1 time per day at 1700 hrs May, Active RESULTS No Results PROCEDURES No Known procedures [...] 7 Hospitalization History surgery Hospitalization History [facility], inpr tie treatment few times for BH
--- OUTSIDE RECORDS SUMMARY | 2019-09-29 10:57 | XMS REPORT ---
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 Active 03050090 Problem Open-angle glaucoma of both eyes, unspecified glaucoma stage, unspecified open-angle glaucoma type H40.10X0 Acti ve 37611985 Problem Adjustment disorder, unspecified type F43.20 Active 13333936 Problem Obstructive sleep apnea G47.33 Active 73810185 Problem Hypertensive retinopathy of both eyes H35.033 Active 6860308 Problem Type 2 diabetes mellitus with complication E11.8 Active 46987386 Problem Essential hypertension I10 Active 76904645 Problem Diabetes E11.9 Active 83886120 Problem Bipolar disorder, in partial remission, most rec ent episode manic F31.73 Active 97119841 Problem Intermittent explosive disorder in adult F63.81 Active 73631281 Problem Other diabetic neurological complication associated with type 2 diabetes mellitus E11.49 Active 235599979 Problem Depression F32.9 Active 52276592 Problem Neuropathy G62.9 Active 679843820 Problem Intermittent explosive disorder F63.81 Active 33364887 Problem Bipolar disorder, unspecified F31.9 Active 54107677 Problem Mild intellectual disability F70 A ctive 57476461 Problem Reactive airway disease, mild intermittent, uncomplicated J45.20 Active 671841701 Problem Gastroesophageal reflux disease without esophagitis K21.9 Active [id number] ALLERGIES No Information ENCOUNTERS Encounter Location Date Diagnosis [facility] [place] [address] [facility] [id number] [address] [place] [address] August, [facility] [place] [address] [facility] [id number] [address] [place] [address] Jul, [facility] [address] [id number] [address] [place] [address] [id number] Jul, [facility] [place] [address] [facility] [id number] [address] [place] [address] Jul, [facility] [place] [address] [facility] [id number] [address] [place] [address] Jun, [facility] [address] [facility] [id number] [address] [place] [address] [phone] Jun, Dental examination Z01.20 an d Oral health maintenance status requiring routine preventive dental care K08.9 [facility] [place] [address] [facility] [id number] [address] [place] [address] 11 May, 2018 Bilateral impacted cerumen H 61.23 [place] [address] [facility] [id number] [address] [place] [address] Apr, Bipolar disorder, unspecifie d F31.9 ; Intermittent explosive disorder in adult F63.81 ; Type 2 diabetes mellitus with complication E11.8 ; Tobacco abuse Z72.0 and Colon cancer screening Z12.11 [facility] [place] [address] [facility] [id number] [address] [place] [address] Apr, Onychomycosis B35.1 and Othe r diabetic neurological complication associated with type 2 diabetes mellitus E11.49 [facility] [place] [address] [facility] [id number] [address] [place] [address] Apr, Intermittent explosive disor salvatore in adult F63.81 ; Bipolar disorder, unspecified F31.9 and Mild intellectual disability F70 [facility] [place] [address] [facility] [id number] [address] [place] [address] Mar, Diabetes E11.9 [facility] [address] [facility] [id number] [address] [place] [address] Jan, Encounter for immunization Z 23 [facility] [place] [address] [facility] [id number] [address] [place] [address] Jan, Tinea pedis of both feet B35 .3 ; Other diabetic neurological complication associated with type 2 diabetes mellitus E11.49 and Onychomycosis B35.1 [facility] [place] [address] [id number] [address] [place] [address] Nov, Type 2 diabetes mellitus wit h complication E11.8 [facility] [place] [address] [id number] [address] [place] [address] Nov, [facility] [place] [address] [facility] [id number] [address] [place] [address] Oct, Intermittent explosive disor salvatore in adult F63.81 ; Bipolar disorder, unspecified F31.9 and Mild intellectual disability F70 [facility] [place] [address] [id number] [address] [place] [address] Oct, [facility] [address] [id number] [address] [place] [address] [phone] Oct, Dental examination Z01.20 [facility] [place] [address] [facility] [id number] [address] [place] [address] Oct, Onychomycosis B35.1 and Othe r diabetic neurological complication associated with type 2 diabetes mellitus E11.49 [facility] [place] [address] [id number] [address] [place] [address] Sep, Type 2 diabetes mellitus wit h complication E11.8 and Colon cancer screening Z12.11 [facility] [place] [address] [id number] [address] [place] [address] Sep, Type 2 diabetes mellitus wit h complication E11.8 ; Colon cancer screening Z12.11 and Neuropathy G62.9 [facility] [place] [address] [id number] [address] [place] [address] August, Diabetes E11.9 [facility] [address] [id number] [address] [place] [address] [id number] Jul, Dental examination Z01.20 [facility] [place] [address] [id number] [address] [place] [id number] 27 May, 2017 Mild intellectual disability F70 [facility] [place] [address] [facility] [id number] [address] [place] [address] May, Mild intellectual disability F70 ; High risk medication use Z79.899 ; Intermittent explosive disorder in adult F63.81 and Bipolar disorder, unspecified F31.9 [facility] [place] [address] [facility] [id number] [address] [place] [address] May, [facility] [place] [address] [facility] [id number] [address] [place] [address] May, [facility] [place] [address] [facility] [id number] [address] [place] [address] Apr, Type 2 diabetes mellitus wit h complication E11.8 ; Mild intellectual disability F70 ; Gastroesophageal reflux disease without esophagitis K21.9 ; Reactive airway disease, mild intermittent, uncomplicated J45.20 and Tobacco abuse Z72.0 [facility] [place] [address] [facility] [id number] [address] [place] [address] Apr, High risk medication use Z79 .899 ; Mild intellectual disability F70 ; Intermittent explosive disorder in adult F63.81 and Bipolar disorder, unspecified F31.9 [facility] [address] [id number] Mar, Encounter for dental exam an d cleaning w/o abnormal findings Z01.20 [facility] [address] [id number] [address] [place] [address] [phone] Mar, Dental examination Z01.20 [facility] [place] [address] [id number] [address] [place] [phone] 12 Jan, 2017 [facility] [place] [address] [facility] [id number] [address] [place] [id number] Jan, [facility] [place] [address] [facility] [id number] [address] [place] [address] Jan, Mild intellectual disability F70 ; Bipolar disorder, unspecified F31.9 and Intermittent explosive disorder in adult F63.81 [facility] [place] [address] [id number] [address] [place] [phone] 02 Jan, 2017 Diabetes E11.9 [facility] [address] [id number] [address] [place] [address] [id number] 13 Dec, 2016 Encounter for dental examina tion and cleaning without abnormal findings Z01.20 [facility] [place] [address] [id number] [address] [place] [phone] 12 Dec, 2016 Bipolar disorder, unspecifie d F31.9 ; Intermittent explosive disorder in adult F63.81 and Mild intellectual disability F70 [facility] [place] [address] [id number] [address] [place] [address] Nov, Diabetes E11.9 [facility] [place] [address] [id number] [address] [place] [phone] Nov, [facility] [place] [address] [id number] [address] [place] [address] Nov, Diabetes E11.9 and Colon can cer screening Z12.[id number] [place] [address] [id number] Sep, Dental examination Z01.20 [facility] [address] [id number] [address] [place] [address] [id number] 21 Sep, 2016 Encounter for dental examina tion and cleaning without abnormal findings Z01.20 [facility] [place] [address] [id number] [address] [place] [address] Sep, Bipolar disorder, unspecifie d F31.9 [facility] [place] [address] [id number] [address] [place] [phone] Sep, Bipolar disorder, unspecifie d F31.9 [facility] [place] [address] [id number] [address] [place] [phone] Jul, [facility] [place] [address] [id number] [address] [place] [phone] Jul, Type 2 diabetes mellitus wit h complication E11.8 [facility] [address] [id number] [address] [place] [address] [id number] 15 Jun, 2016 Encounter for dental examina tion and cleaning without abnormal findings Z01.20 [facility] [address] [id number] [id number] 15 Jun, 2016 Dental examination Z01.20 [facility] [place] [address] [id number] [address] [place] [phone] 18 Apr, 2016 Sports physical Z02.5 [facility] [place] [address] [id number] [address] [place] [phone] 14 Mar, 2016 Bipolar disorder, in partial remission, most recent episode manic F31.73 and Intermittent explosive disorder in adult F63.81 [facility] [place] [address] [facility] [id number] [address] [place] [phone] 08 Mar, 2016 [facility] [place] [address] [facility] [id number] [address] [place] [phone] 06 Mar, 2016 Diabetes E11.9 [facility] [address] [id number] [address] [place] [address] [id number] Feb, Encounter for dental examina tion and cleaning without abnormal findings Z01.20 [facility] [place] [address] [id number] [address] [place] [phone] 22 Dec, 2015 Nocturnal hypoxemia G47.34 a nd Encounter for immunization Z23 [facility] [place] [address] [id number] [address] [place] [id number] 15 Dec, 2015 [facility] [place] [address] [id number] [address] [place] [address] Dec, [facility] [place] [address] [id number] [address] [place] [phone] Dec, Bipolar disorder, unspecifie d F31.9 [facility] [address] [id number] [address] [place] [address] [phone] Oct, Encounter for dental examina tion and cleaning without abnormal findings Z01.20 [facility] [address] [id number] [id number] Oct, Dental examination Z01.20 [facility] [place] [address] [facility] [id number] [address] [place] [address] Oct, Diabetes E11.9 [place] [address] [place] [id number] [address] [place] [address] Oct, Diabetes E11.9 ; Reactive ai rway disease, mild intermittent, uncomplicated J45.20 and Tobacco abuse Z72.0 [place] [address] [address] Sep, Bipolar disorder, unspecifie d F31.9 and Depression F32.9 [place] [address] [address] Sep, [place] [address] [address] August, Tinea pedis of both feet B35 .3 and DM w/o complication type II, uncontrolled E11.65 [place] [id number] [place] [address] Jul, [place] [address] [address] Jul, [place] [address] [address] Jul, Obstructive sleep apnea G47. 33 [place] [address] [place] [id number] [address] [place] [address] Jun, Diabetes E11.9 [facility] [place] [address] [place] [id number] [address] [place] [id number] Jun, [facility] [place] [address] [place] [id number] [address] [place] [address] Jun, [place] [address] [place] [id number] [address] [place] [phone] Jun, Bipolar disorder, unspecifie d F31.9 and Mental retardation F79 [place] [address] [place] [id number] [address] [place] [address] Apr, [place] [address] [address] Feb, Diabetes E11.9 ; Encounter f or immunization Z23 ; Cough R05 and Nicotine abuse Z72.0 [place] [address] [address] Jan, Bipolar disorder, unspecifie d F31.9 and Diabetes mellitus without mention of complication, type II or unspecified type, uncontrolled 250.02 [place] [address] [address] Jan, [place] [address] [address] Dec, Reactive airway disease 493. 90 and Enuresis 788.30 [place] [address] [address] Dec, [place] [address] [phone] Nov, [place] [address] [address] Nov, [place] [address] [address] Nov, Annual physical exam V70.0 ; Urinary incontinence 788.30 ; Diabetes 250.00 and Hypertension 401.9 [place] [address] [place] [id number] [address] [place] [address] Oct, Diabetes mellitus without me ntion of complication, type II or unspecified type, uncontrolled 250.02 [place] [address] [place] [id number] [place] [address] Oct, Diabetes mellitus without me ntion of complication, type II or unspecified type, uncontrolled 250.02 [place] [address] [address] Oct, Diabetes mellitus without me ntion of complication, type II or unspecified type, uncontrolled 250.02 [facility] [place] [address] [id number] [address] [place] [address] Oct, [facility] [place] [address] [id number] [address] [place] [phone] Oct, [facility] [place] [address] [id number] [address] [place] [address] Oct, Bipolar disorder, unspecifie d 296.80 [facility] [address] [id number] [address] [place] [address] [id number] Sep, Dental examination V72.2 [facility] [place] [address] [id number] [address] [place] [address] August, [facility] [address] [id number] [place] [address] [id number] August, Dental examination V72.2 [facility] [place] [address] [id number] [address] [place] [phone] August, [facility] [place] [address] [id number] [address] [place] [phone] Jul, [facility] [place] [address] [id number] [address] [place] [address] Jul, [facility] [place] [address] [id number] [address] [place] [phone] Jun, [facility] [place] [address] [id number] [address] [place] [address] Jun, [facility] [place] [address] [id number] [address] [place] [address] Jun, [facility] [place] [address] [id number] [address] [place] [address] Jun, [facility] [place] [address] [id number] [address] [place] [address] May, [facility] [address] [id number] [address] [place] [address], [place] [address] May, 2014 [facility] [address] [id number] [address] [place] [address], [place] [address] 16 May, 2014 [facility] [address] [id number] [address] [place] [address], [place] [address] 16 May, 2014 [facility] [address] [id number] [address] [place] [address], [place] [address] 16 May, 2014 [facility] [address] [id number] [address] [place] [address], [place] [address] 16 May, 2014 [facility] [address] [id number] [address] [place] [address], [place] [address] May, 2014 [facility] [address] [id number] [address] [place] [address], [place] [address] 16 May, 2014 [facility] [address] [id number] [address] [place] [address], [place] [address] 16 May, 2014 [facility] [address] [id number] [address] [place] [address], [place] [address] May, 2014 [facility] [address] [id number] [address] [place] [address], [place] [address] 16 May, 2014 [facility] [address] [id number] [address] [place] [address], [place] [address] May, 2014 [facility] [address] [id number] [address] [place] [address], [place] [address] 16 May, 2014 [facility] [address] [id number] [address] [place] [address], [place] [address] 16 May, 2014 [facility] [address] [id number] [address] [place] [address], [place] [address] 16 May, 2014 [facility] [address] [id number] [address] [place] [address], [place] [address] Apr, [facility] [address] [id number] [address] [place] [address], [place] [address] Apr, [facility] [address] [id number] [address] [place] [address], [place] [address] Apr, [facility] [address] [id number] [address] [place] [address], [place] [address] Apr, [facility] [address] [id number] [address] [place] [address], [place] [address] Apr, [facility] [address] [id number] [address] [place] [address], [place] [address] Apr, [facility] [address] [id number] [address] [place] [address], [place] [address] Apr, [facility] [address] [id number] [address] [place] [address], [place] [address] Apr, [facility] [address] [id number] [address] [place] [address], [place] [address] Apr, [facility] [address] [id number] [address] [place] [address], [place] [id number] Apr, [facility] [address] [id number] [address] [place] [address], [place] [id number] Apr, [facility] [address] [id number] [address] [place] [address], [place] [id number] Apr, [facility] [address] [id number] [address] [place] [address], [place] [id number] Mar, [facility] [address] [id number] [address] [place] [address], [place] [id number] Mar, [facility] [address] [id number] [address] [place] [address], [place] [id number] Mar, [facility] [address] [id number] [address] [place] [address], [place] [id number] Mar, [facility] [address] [id number] [address] [place] [address], [place] [id number] Mar, [facility] [address] [id number] [address] [place] [address], [place] [id number] Mar, [facility] [address] [id number] [address] [place] [address], [place] [id number] Feb, [facility] [address] [id number] [address] [place] [address], [place] [id number] Feb, [facility] [address] [id number] [address] [place] [address], [place] [id number] Feb, [facility] [address] [id number] [address] [place] [address], [place] [id number] Feb, [facility] [address] [id number] [address] [place] [address], [place] [id number] 14 Jan, 2014 [facility] [address] [id number] [address] [place] [address], [place] [id number] 14 Jan, 2014 [facility] [address] [id number] [address] [place] [address], [place] [id number] 14 Jan, 2014 [facility] [address] [id number] [address] [place] [address], [place] [id number] 14 Jan, 2014 [facility] [address] [id number] [address] [place] [address], [place] [address] 22 Dec, 2013 [facility] [address] [id number] [address] [place] [address], [place] [address] 22 Dec, 2013 [facility] [address] [id number] [address] [place] [address], [place] [address] 15 Dec, 2013 [facility] [address] [id number] [address] [place] [address], [place] [address] 15 Dec, 2013 [facility] [address] [id number] [address] [place] [address], [place] [address] Nov, [facility] [address] [id number] [address] [place] [address], [place] [address] Nov, [facility] [address] [id number] [facility] [place] [address] Nov, [facility] [address] [id number] [address] [place] [address], [place] [address] Nov, [facility] [address] [id number] [facility] [place] [address] Nov, [facility] [address] [id number] [address] [place] [address], [place] [address] Nov, [facility] [address] [id number] [address] [place] [address], [place] [address] Nov, [facility] [address] [id number] [address] [place] [address], [place] [address] Oct, [facility] [address] [id number] [address] [place] [address], [place] [address] Oct, [facility] [address] [id number] [address] [place] [address], [place] [address] Oct, [facility] [address] [id number] [address] [place] [address], [place] [address] Oct, [facility] [address] [id number] [address] [place] [address], [place] [address] Oct, [facility] [address] [id number] [address] [place] [address], [place] [address] Oct, [facility] [address] [id number] [address] [place] [address], [place] [address] Oct, [facility] [address] [id number] [address] [place] [address], [place] [address] Sep, [facility] [address] [id number] [address] [place] [address], [place] [address] Sep, [facility] [address] [id number] [address] [place] [address], [place] [address] Sep, [facility] [address] [id number] [address] [place] [address], [place] [address] Sep, [facility] [address] [id number] [address] [place] [address], [place] [address] Sep, [facility] [address] [id number] [address] [place] [address], [place] [address] Jul, [facility] [address] [id number] [address] [place] [address], [place] [address] Jul, [facility] [address] [id number] [address] [place] [address], [place] [address] Jul, [facility] [address] [id number] [address] [place] [address], [place] [address] Jul, [facility] [address] [id number] [address] [place] [address], [place] [address] Jul, [facility] [address] [id number] [address] [place] [address], [place] [address] Jul, [facility] [address] [id number] [address] [place] [address], [place] [address] Jul, [facility] [address] [id number] [address] [place] [address], [place] [address] Jul, [facility] [address] [id number] [address] [place] [address], [place] [address] Jul, [facility] [address] [id number] [address] [place] [address], [place] [address] Jul, [facility] [address] [id number] [address] [place] [address], [place] [address] Jul, [facility] [address] [id number] [address] [place] [address], [place] [address] Jul, [facility] [address] [id number] [address] [place] [address], [place] [address] Jun, [facility] [address] [id number] [address] [place] [address], [place] [address] Jun, [facility] [address] [id number] [address] [place] [address], [place] [address] Jun, [facility] [address] [id number] [address] [place] [address], [place] [address] Jun, [facility] [address] [id number] [address] [place] [address], [place] [address] Jun, [facility] [address] [id number] [address] [place] [address], [place] [address] Jun, [facility] [address] [id number] [address] [place] [address], [place] [address] Jun, [facility] [address] [id number] [address] [place] [address], [place] [address] Jun, [facility] [address] [id number] [address] [place] [address], [place] [address] May, [facility] [address] [id number] [address] [place] [address], [place] [address] May, [facility] [address] [id number] [address] [place] [address], [place] [address] May, [facility] [address] [id number] [address] [place] [address], [place] [address] May, [facility] [address] [id number] [address] [place] [address], [place] [address] May, [facility] [address] [id number] [address] [place] [address], [place] [address] May, [facility] [address] [id number] [address] [place] [address], [place] [address] May, [facility] [address] [id number] [address] [place] [address], [place] [address] May, [facility] [address] [id number] [address] [place] [address], [place] [address] Apr, [facility] [address] [id number] [address] [place] [address], [place] [address] Apr, [facility] [address] [id number] [address] [place] [address], [place] [address] Apr, [facility] [address] [id number] [address] [place] [address], [place] [address] Apr, [facility] [address] [id number] [address] [place] [address], [place] [address] Mar, [facility] [address] [id number] [address] [place] [address], [place] [address] Mar, [facility] [address] [id number] [address] [place] [address], [place] [address] Mar, [facility] [address] [id number] [address] [place] [address], [place] [address] Feb, [facility] [address] [id number] [address] [place] [address], [place] [address] Feb, [facility] [address] [id number] [address] [place] [address], [place] [address] Feb, [facility] [address] [id number] [address] [place] [address], [place] [address] Feb, [facility] [address] [id number] [address] [place] [address], [place] [address] Feb, [facility] [address] [id number] [address] [place] [address], [place] [address] Feb, [facility] [address] [id number] [address] [place] [address], [place] [address] Jan, [facility] [address] [id number] [address] [place] [address], [place] [address] Jan, [facility] [address] [id number] [address] [place] [address], [place] [address] Jan, [facility] [address] [id number] [address] [place] [address], [place] [address] Jan, [facility] [address] [id number] [address] [place] [address], [place] [address] Jan, [facility] [address] [id number] [address] [place] [address], [place] [address] Jan, [facility] [address] [id number] [address] [place] [address], [place] [address] Jan, [facility] [address] [id number] [address] [place] [address], [place] [address] Dec, [facility] [address] [id number] [address] [place] [address], [place] [address] 16 Dec, 2012 [facility] [address] [id number] [address] [place] [address], [place] [address] Dec, [facility] [address] [id number] [address] [place] [address], [place] [address] Dec, [facility] [address] [id number] [address] [place] [address], [place] [address] Nov, [facility] [address] [id number] [address] [place] [address], [place] [address] Nov, [facility] [address] [id number] [address] [place] [address], [place] [address] Nov, [facility] [address] [id number] [address] [place] [address], [place] [address] Nov, [facility] [address] [id number] [address] [place] [address], [place] [address] Nov, [facility] [address] [id number] [address] [place] [address], [place] [address] Nov, [facility] [address] [id number] [address] [place] [address], [place] [address] Nov, [facility] [address] [id number] [address] [place] [address], [place] [address] Oct, [facility] [address] [id number] [address] [place] [address], [place] [address] Oct, [facility] [address] [id number] [address] [place] [address], [place] [address] Oct, [facility] [address] [id number] [address] [place] [address], [place] [address] Oct, [facility] [address] [id number] [address] [place] [address], [place] [address] Oct, [facility] [address] [id number] [address] [place] [address], [place] [address] Oct, [facility] [address] [id number] [address] [place] [address], [place] [address] Oct, [facility] [address] [id number] [address] [place] [address], [place] [address] Oct, [facility] [address] [id number] [address] [place] [address], [place] [address] Sep, Suleiman PEREZ [facility] [id number] [place] [id number] August, [facility] [address] [id number] [address] [place] [address], [place] [address] August, [facility] [address] [id number] [address] [place] [address], [place] [address] Jul, [facility] [address] [id number] [address] [place] [address], [place] [address] Jul, [facility] [address] [id number] [address] [place] [address], [place] [address] Jul, [facility] [address] [id number] [address] [place] [address], [place] [address] Jul, [facility] [address] [id number] [address] [place] [address], [place] [address] Jul, [facility] [address] [id number] [address] [place] [address], [place] [address] 17 Jul, 2012 [facility] [address] [id number] [address] [place] [address], [place] [address] 16 Jul, 2012 [facility] [address] [id number] [address] [place] [address], [place] [address] Jun, [facility] [address] [id number] [address] [place] [address], [place] [address] Jun, [facility] [address] [id number] [address] [place] [address], [place] [address] Jun, [facility] [address] [id number] [address] [place] [address], [place] [address] 04 Jun, 2012 [facility] [address] [id number] [address] [place] [address], [place] [address] 04 Jun, 2012 [facility] [address] [id number] [address] [place] [address], [place] [address] May, [facility] [address] [id number] [address] [place] [address], [place] [address] 18 May, 2012 [facility] [address] [id number] [address] [place] [address], [place] [address] 04 May, 2012 [facility] [address] [id number] [address] [place] [address], [place] [address] Apr, [facility] [address] [id number] [address] [place] [address], [place] [address] Apr, [facility] [address] [id number] [address] [place] [address], [place] [address] Apr, [facility] [address] [id number] [address] [place] [address], [place] [address] Mar, [facility] [address] [id number] [address] [place] [address], [place] [address] Mar, [facility] [address] [id number] [address] [place] [address], [place] [address] Mar, [facility] [address] [id number] [address] [place] [address], [place] [address] Mar, [facility] [address] [id number] [address] [place] [address], [place] [address] Mar, [facility] [address] [id number] [address] [place] [address], [place] [address] Mar, [facility] [address] [id number] [address] [place] [address], [place] [address] Feb, [facility] [address] [id number] [address] [place] [address], [place] [address] Feb, [facility] [address] [id number] [address] [place] [address], [place] [address] Jan, [facility] [address] [id number] [address] [place] [address], [place] [address] Jan, [facility] [address] [id number] [address] [place] [address], [place] [address] Dec, [facility] [address] [id number] [address] [place] [address], [place] [address] Nov, [facility] [address] [id number] [address] [place] [address], [place] [address] Nov, [facility] [address] [id number] [address] [place] [address], [place] [address] Nov, [facility] [address] [id number] [address] [place] [address], [place] [address] Nov, [facility] [address] [id number] [address] [place] [address], [place] [address] Oct, [facility] [address] [id number] [address] [place] [address], [place] [address] Oct, [facility] [address] [id number] [address] [place] [address], [place] [address] Oct, [facility] [address] [id number] [address] [place] [address], [place] [address] Sep, [facility] [address] [id number] [address] [place] [address], [place] [address] Sep, [facility] [address] [id number] [address] [place] [address], [place] [address] Sep, [facility] [address] [id number] [address] [place] [address], [place] [address] August, [facility] [address] [id number] [address] [place] [address], [place] [address] August, [facility] [address] [id number] [address] [place] [address], [place] [address] Jul, [facility] [address] [id number] [address] [place] [address], [place] [address] Jul, [facility] [address] [id number] [address] [place] [address], [place] [address] Jul, [facility] [address] [id number] [address] [place] [address], [place] [address] Jul, [facility] [address] [id number] [address] [place] [address], [place] [address] Jun, [facility] [address] [id number] [address] [place] [address], [place] [address] May, [facility] [address] [id number] [address] [place] [address], [place] [address] Apr, [facility] [address] [id number] [address] [place] [address], [place] [address] Apr, [facility] [address] [id number] [address] [place] [address], [place] [address] Apr, [facility] [address] [id number] [address] [place] [address], [place] [address] Apr, [facility] [address] [id number] [address] [place] [address], [place] [address] Apr, [facility] [address] [id number] [address] [place] [address], [place] [address] Apr, [facility] [address] [id number] [address] [place] [address] Mar, [facility] [address] [id number] [address] [place] [address], [place] [address] Mar, [facility] [address] [id number] [address] [place] [address] Feb, [facility] [address] [id number] [address] [place] [address], [place] [address] Feb, [facility] [address] [id number] [address] [place] [address], [place] [address] Feb, [facility] [address] [id number] [address] [place] [address], [place] [address] Feb, [facility] [address] [id number] [address] [place] [address], [place] [id number] Jan, [facility] [address] [id number] [address] [place] [phone] Jan, [facility] [address] [id number] [address] [place] [address], [place] [id number] Jan, [facility] [address] [id number] [address] [place] [address], [place] [id number] Jan, [facility] [address] [id number] [address] [place] [id number] Nov, [facility] [address] [id number] [address] [place] [address], [place] [id number] Mar, [facility] [address] [id number] [address] [place] [id number] Mar, [facility] [address] [id number] [address] [place] [address], [place] [id number] 30 Feb, 2010 [facility] [address] [id number] [address] [place] [address], [place] [id number] 15 Feb, 2010 [facility] [address] [id number] [address] [place] [address], [place] [id number] 19 Jan, 2010 [facility] [address] [id number] [address] [place] [phone] Jan, [facility] [place] [address] [id number] [address] [place] [id number] Sep, [facility] [place] [address] [id number] [address] [place] [id number] 16 May, 2009 [facility] [place] [address] [id number] [address] [place] [phone] Apr, [facility] [place] [address] [id number] [address] [place] [id number] Mar, [facility] [place] [address] [id number] [address] [place] [phone] Feb, [facility] [place] [address] [id number] [address] [place] [id number] Feb, [facility] [place] [address] [id number] [address] [place] [phone] Feb, [facility] [place] [address] [id number] [address] [place] [id number] Jan, [facility] [place] [address] [id number] [address] [place] [phone] Jan, [facility] [place] [address] [id number] [address] [place] [id number] Jan, [facility] [place] [address] [id number] [address] [place] [id number] Jan, [facility] [place] [address] [id number] [address] [place] [id number] August, IMMUNIZATIONS No Known Immunizations SOCIAL HISTORY Never Assessed REASON FOR VISIT [facility] [place] VITAL SIGNS MEDICATIONS Unknown [...] 7 Hospitalization History surgery Hospitalization History [facility], [facility] treatment few times for BH
--- OUTSIDE RECORDS SUMMARY | 2019-09-29 10:58 | XMS REPORT ---
Author Author Cameron ALANIZ Organization [facility] Address [address] [place] [address] Care Team Providers Care Sprayer Operator Name Role Phone JEET ALANIZ Unavailable PROBLEMS Type Condition ICD9-CM Code BCR29-GU Code Onset Dates Condition S tatus SNOMED Code Problem Diabetes E11.9 Active 73486752 Problem Intermittent explosive disorder in adult F63.81 Active 26722600 Problem Bipolar disorder, in partial remission, most rec ent episode manic F31.73 Active 90787005 Problem Neuropathy G62.9 Active 914607477 Problem Other diabetic neurological complication associated with type 2 diabetes mellitus E11.49 Active 035939639 Problem Mild intellectual disability F70 A ctive 21479330 Problem Bipolar disorder, unspecified F31.9 Active 67844964 Problem Gastroesophageal reflux disease without esophagitis K21.9 Active 870244820 Problem Reactive airway disease, mild intermittent, uncomplicated J45.20 Active 890572342 Problem Adjustment disorder, unspecified type F43.20 Active 47387335 Problem Open-angle glaucoma of both eyes, unspecified glaucoma stage, unspecified open-angle glaucoma type H40.10X0 Acti ve 34964614 Problem 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 Active 71806263 Problem Reactive airway disease, unspecified asthma justin rity, uncomplicated J45.909 Active 468216401247 Problem Essential hypertension I10 Active 06000836 Problem Type 2 diabetes mellitus with complication E11.8 Active 55566116 Problem Hypertensive retinopathy of both eyes H35.033 Active 2811029 Problem Intermittent explosive disorder F63.81 Active 33747944 Problem Obstructive sleep apnea G47.33 Active 86111670 Problem Depression F32.9 Active 31920712 ALLERGIES No Known Allergies ENCOUNTERS Encounter Location Date Diagnosis [facility] [address] [facility] [id number] [address] [place] [address] Apr, [facility] [address] [facility] [id number] [address] [place] [id number] Apr, [facility] [address] [facility] [id number] [address] [place] [id number] Apr, [facility] [address] [facility] [id number] [address] [place] [id number] Mar, Diabetes E11.9 [facility] [address] [facility] [id number] [address] [place] [phone] Jan, Encounter for immunization Z 23 [facility] [address] [facility] [id number] [address] [place] [id number] Jan, Tinea pedis of both feet B35 .3 ; Other diabetic neurological complication associated with type 2 diabetes mellitus E11.49 and Onychomycosis B35.1 [place] [address] [facility] [id number] [address] [place] [id number] Nov, Type 2 diabetes mellitus wit h complication E11.8 [place] [address] [facility] [id number] [address] [place] [id number] Nov, [facility] [address] [facility] [id number] [address] [place] [id number] Oct, Intermittent explosive disor salvatore in adult F63.81 ; Bipolar disorder, unspecified F31.9 and Mild intellectual disability F70 [facility] [address] [facility] [id number] [address] [place] [id number] Oct, [facility] [address] [facility] [id number] [address] [place] [address] [id number] Oct, Dental examination Z01.20 [facility] [address] [facility] [id number] [address] [place] [phone] Oct, Onychomycosis B35.1 and Othe r diabetic neurological complication associated with type 2 diabetes mellitus E11.49 [facility] [address] [facility] [id number] [address] [place] [id number] Sep, Type 2 diabetes mellitus wit h complication E11.8 and Colon cancer screening Z12.11 [facility] [address] [facility] [id number] [address] [place] [id number] 18 Sep, 2017 Type 2 diabetes mellitus wit h complication E11.8 ; Colon cancer screening Z12.11 and Neuropathy G62.9 [facility] [address] [id number] [address] [place] [id number] August, Diabetes E11.9 [facility] [address] [id number] [address] [place] [id number] Jul, Dental examination Z01.20 [facility] [address] [facility] [id number] [address] [place] [id number] May, Mild intellectual disability F70 [facility] [address] [facility] [id number] [address] [place] [id number] May, Mild intellectual disability F70 ; High risk medication use Z79.899 ; Intermittent explosive disorder in adult F63.81 and Bipolar disorder, unspecified F31.9 [facility] [address] [facility] [id number] [address] [place] [id number] May, [facility] [address] [facility] [id number] [address] [place] [phone] May, [facility] [address] [facility] [id number] [address] [place] [id number] Apr, Type 2 diabetes mellitus wit h complication E11.8 ; Mild intellectual disability F70 ; Gastroesophageal reflux disease without esophagitis K21.9 ; Reactive airway disease, mild intermittent, uncomplicated J45.20 and Tobacco abuse Z72.0 [facility] [address] [facility] [id number] [address] [place] [id number] Apr, High risk medication use Z79 .899 ; Mild intellectual disability F70 ; Intermittent explosive disorder in adult F63.81 and Bipolar disorder, unspecified F31.9 [facility] [address] [id number] [address] [place] [address] [id number] Mar, Encounter for dental exam an d cleaning w/o abnormal findings Z01.20 [facility] [address] [id number] [address] [place] [address] [id number] Mar, Dental examination Z01.20 [facility] [address] [id number] [address] [place] [id number] 12 Jan, 2017 [facility] [address] [id number] [address] [place] [phone] Jan, [facility] [address] [id number] [address] [place] [id number] 10 Jan, 2017 Mild intellectual disability F70 ; Bipolar disorder, unspecified F31.9 and Intermittent explosive disorder in adult F63.81 [facility] [address] [id number] [address] [place] [id number] 02 Jan, 2017 Diabetes E11.9 [facility] [address] [id number] [address] [place] [address] [id number] 13 Dec, 2016 Encounter for dental examina tion and cleaning without abnormal findings Z01.20 [facility] [address] [id number] [address] [place] [id number] 12 Dec, 2016 Bipolar disorder, unspecifie d F31.9 ; Intermittent explosive disorder in adult F63.81 and Mild intellectual disability F70 [facility] [address] [id number] [address] [place] [phone] Nov, Diabetes E11.9 [facility] [address] [id number] [address] [place] [id number] Nov, [facility] [address] [id number] [address] [place] [id number] 14 Nov, 2016 Diabetes E11.9 and Colon can cer screening Z12.11 [facility] [id number] [place] [address] [id number] Sep, Dental examination Z01.20 [facility] [address] [id number] [address] [place] [address] [id number] Sep, Encounter for dental examina tion and cleaning without abnormal findings Z01.20 [facility] [address] [facility] [id number] [address] [place] [id number] 13 Sep, 2016 Bipolar disorder, unspecifie d F31.9 [facility] [address] [facility] [id number] [address] [place] [id number] 12 Sep, 2016 Bipolar disorder, unspecifie d F31.9 [facility] [address] [facility] [id number] [address] [place] [id number] Jul, [facility] [address] [facility] [id number] [address] [place] [phone] Jul, Type 2 diabetes mellitus wit h complication E11.8 [facility] [address] [facility] [id number] [address] [place] [address] [id number] 15 Jun, 2016 Encounter for dental examina tion and cleaning without abnormal findings Z01.[address] [id number] [place] [address] [id number] Jun, Dental examination Z01.20 [facility] [address] [facility] [id number] [address] [place] [id number] Apr, Sports physical Z02.5 [facility] [address] [facility] [id number] [address] [place] [id number] 14 Mar, 2016 Bipolar disorder, in partial remission, most recent episode manic F31.73 and Intermittent explosive disorder in adult F63.81 [facility] [address] [facility] [id number] [address] [place] [id number] Mar, [facility] [address] [facility] [id number] [address] [place] [id number] Mar, Diabetes E11.9 [facility] [address] [id number] [address] [place] [address] [id number] Feb, Encounter for dental examina tion and cleaning without abnormal findings Z01.20 [facility] [address] [facility] [id number] [address] [place] [id number] Dec, Nocturnal hypoxemia G47.34 a nd Encounter for immunization Z23 [facility] [address] [facility] [id number] [address] [place] [id number] 15 Dec, 2015 [facility] [address] [facility] [id number] [address] [place] [id number] Dec, [facility] [address] [facility] [id number] [address] [place] [id number] Dec, Bipolar disorder, unspecifie d F31.9 [facility] [address] [id number] [address] [place] [address] [id number] 13 Oct, 2015 Encounter for dental examina tion and cleaning without abnormal findings Z01.20 [place] [id number] [facility] [id number] [place] [address] [id number] 13 Oct, 2015 Dental examination Z01.20 [facility] [address] [place] [id number] [address] [place] [id number] 07 Oct, 2015 Diabetes E11.9 [facility] [address] [place] [id number] [address] [place] [id number] 05 Oct, 2015 Diabetes E11.9 ; Reactive ai rway disease, mild intermittent, uncomplicated J45.20 and Tobacco abuse Z72.0 [facility] [address] [place] [id number] [address] [place] [id number] 06 Sep, 2015 Bipolar disorder, unspecifie d F31.9 and Depression F32.9 [facility] [address] [place] [id number] [address] [place] [phone] Sep, [facility] [address] [id number] August, Tinea pedis of both feet B35 .3 and DM w/o complication type II, uncontrolled E11.65 [facility] [address] [place] [id number] [address] [place] [id number] Jul, [facility] [address] [place] [id number] [address] [place] [id number] Jul, [facility] [address] [id number] 08 Jul, 2015 Obstructive sleep apnea G47. 33 [place] [address] [id number] Jun, Diabetes E11.9 [place] [address] [id number] Jun, [place] [address] [address] Jun, [place] [address] [address] Jun, Bipolar disorder, unspecifie d F31.9 and Mental retardation F79 [place] [address] [address] Apr, [place] [address] [id number] Feb, Diabetes E11.9 ; Encounter f or immunization Z23 ; Cough R05 and Nicotine abuse Z72.0 [place] [address] [address] Jan, Bipolar disorder, unspecifie d F31.9 and Diabetes mellitus without mention of complication, type II or unspecified type, uncontrolled 250.02 [place] [address] [address] Jan, [place] [address] [address] Dec, Reactive airway disease 493. 90 and Enuresis 788.30 [place] [address] [address] Dec, [place] [address] [address] Nov, [place] [address] [address] Nov, [facility] [address] [id number] [address] [place] [id number] Nov, Annual physical exam V70.0 ; Urinary incontinence 788.30 ; Diabetes 250.00 and Hypertension 401.9 [facility] [address] [id number] [address] [place] [id number] Oct, Diabetes mellitus without me ntion of complication, type II or unspecified type, uncontrolled 250.02 [facility] [address] [id number] [address] [place] [id number] Oct, Diabetes mellitus without me ntion of complication, type II or unspecified type, uncontrolled 250.02 [facility] [address] [id number] [address] [place] [id number] Oct, Diabetes mellitus without me ntion of complication, type II or unspecified type, uncontrolled 250.02 [facility] [address] [id number] [address] [place] [id number] Oct, [facility] [address] [id number] [address] [place] [id number] Oct, [facility] [address] [id number] [address] [place] [id number] Oct, Bipolar disorder, unspecifie d 296.80 [facility] [address] [id number] [address] [place] [address] [id number] Sep, Dental examination V72.2 [facility] [address] [id number] [address] [place] [id number] August, [facility] [address] [id number] [address] [place] [address] [id number] August, Dental examination V72.2 [facility] [address] [id number] [address] [place] [id number] August, [facility] [address] [id number] [address] [place] [id number] Jul, [facility] [address] [id number] [address] [place] [address], [place] [address] 13 Jul, 2014 [facility] [address] [id number] [address] [place] [address], [place] [address] 17 Jun, 2014 [facility] [address] [id number] [address] [place] [address], [place] [address] 17 Jun, 2014 [facility] [address] [id number] [address] [place] [address], [place] [address] 17 Jun, 2014 [facility] [address] [id number] [address] [place] [address], [place] [address] 17 Jun, 2014 [facility] [address] [id number] [address] [place] [address], [place] [address] 23 May, 2014 [facility] [address] [id number] [address] [place] [address], [place] [address] 23 May, 2014 [facility] [address] [id number] [address] [place] [address], [place] [address] 16 May, 2014 [facility] [address] [id number] [address] [place] [address], [place] [address] 16 May, 2014 [facility] [address] [id number] [address] [place] [address], [place] [address] 16 May, 2014 [facility] [address] [id number] [address] [place] [address], [place] [address] 16 May, 2014 [facility] [address] [id number] [address] [place] [address], [place] [address] 16 May, 2014 [facility] [address] [id number] [address] [place] [address], [place] [address] 16 May, 2014 [facility] [address] [id number] [address] [place] [address], [place] [address] 16 May, 2014 [facility] [address] [id number] [address] [place] [address], [place] [address] 16 May, 2014 [facility] [address] [id number] [address] [place] [address], [place] [address] May, [facility] [address] [id number] [address] [place] [address], [place] [address] May, [facility] [address] [id number] [address] [place] [address], [place] [address] May, [facility] [address] [id number] [address] [place] [address], [place] [address] May, [facility] [address] [id number] [address] [place] [address], [place] [address] May, [facility] [address] [id number] [address] [place] [address], [place] [address] Apr, [facility] [address] [id number] [address] [place] [address], [place] [address] Apr, [facility] [address] [id number] [address] [place] [address], [place] [address] Apr, [facility] [address] [id number] [address] [place] [address], [place] [address] Apr, [facility] [address] [id number] [address] [place] [address], [place] [address] Apr, [facility] [address] [id number] [address] [place] [address], [place] [address] Apr, [facility] [address] [id number] [address] [place] [address], [place] [address] Apr, [facility] [address] [id number] [address] [place] [id number] Apr, [facility] [address] [id number] [address] [place] [id number] Apr, [facility] [address] [id number] [address] [place] [address], [place] [address] Apr, [facility] [address] [id number] [address] [place] [address], [place] [address] Apr, [facility] [address] [id number] [address] [place] [address], [place] [address] Apr, [facility] [address] [id number] [address] [place] [address], [place] [address] Mar, [facility] [address] [id number] [address] [place] [address], [place] [address] Mar, [facility] [address] [id number] [address] [place] [address], [place] [address] Mar, [facility] [address] [id number] [address] [place] [address], [place] [address] Mar, [facility] [address] [id number] [address] [place] [address], [place] [address] Mar, [facility] [address] [id number] [address] [place] [address], [place] [address] Mar, [facility] [address] [id number] [address] [place] [address], [place] [address] Feb, [facility] [address] [id number] [address] [place] [address], [place] [address] Feb, [facility] [address] [id number] [address] [place] [address], [place] [address] Feb, [facility] [address] [id number] [address] [place] [address], [place] [address] Feb, [facility] [address] [id number] [address] [place] [address], [place] [address] 14 Jan, 2014 [facility] [address] [id number] [address] [place] [address], [place] [address] 14 Jan, 2014 [facility] [address] [id number] [address] [place] [address], [place] [address] 14 Jan, 2014 [facility] [address] [id number] [address] [place] [address], [place] [address] 14 Jan, 2014 [facility] [address] [id number] [address] [place] [address], [place] [address] Dec, [facility] [address] [id number] [facility] [place] [address] Dec, [facility] [address] [id number] [facility] [place] [address] Dec, [facility] [address] [id number] [address] [place] [address], [place] [address] Dec, [facility] [address] [id number] [address] [place] [address], [place] [address] Nov, [facility] [address] [id number] [address] [place] [address], [place] [address] Nov, [facility] [address] [id number] [address] [place] [address], [place] [address] Nov, [facility] [address] [id number] [address] [place] [address], [place] [address] Nov, [facility] [address] [id number] [address] [place] [address], [place] [address] Nov, [facility] [address] [id number] [address] [place] [address], [place] [address] Nov, [facility] [address] [id number] [address] [place] [address], [place] [address] Nov, [facility] [address] [id number] [address] [place] [address], [place] [address] Oct, [facility] [address] [id number] [address] [place] [address], [place] [address] Oct, [facility] [address] [id number] [address] [place] [address], [place] [address] Oct, [facility] [address] [id number] [address] [place] [address], [place] [address] Oct, [facility] [address] [id number] [address] [place] [address], [place] [address] Oct, [facility] [address] [id number] [address] [place] [address], [place] [address] Oct, [facility] [address] [id number] [address] [place] [address], [place] [address] Oct, [facility] [address] [id number] [address] [place] [address], [place] [address] Sep, [facility] [address] [id number] [address] [place] [address], [place] [address] Sep, [facility] [address] [id number] [address] [place] [address], [place] [address] Sep, [facility] [address] [id number] [address] [place] [address], [place] [address] Sep, [facility] [address] [id number] [address] [place] [address], [place] [address] Sep, [facility] [address] [id number] [address] [place] [address], [place] [address] Jul, [facility] [address] [id number] [address] [place] [address], [place] [address] Jul, [facility] [address] [id number] [address] [place] [address], [place] [address] Jul, [facility] [address] [id number] [address] [place] [address], [place] [address] Jul, [facility] [address] [id number] [address] [place] [address], [place] [address] Jul, [facility] [address] [id number] [address] [place] [address], [place] [address] Jul, [facility] [address] [id number] [address] [place] [address], [place] [address] Jul, [facility] [address] [address] [id number] [address] [place] [address], [place] [address] Jul, [facility] [address] [id number] [address] [place] [address], [place] [address] Jul, [facility] [address] [id number] [facility] [place] [address] Jul, [facility] [address] [id number] [address] [place] [address], [place] [address] Jul, [facility] [address] [id number] [address] [place] [address], [place] [address] Jul, [facility] [address] [id number] [address] [place] [address], [place] [address] Jun, [facility] [address] [id number] [address] [place] [address], [place] [address] Jun, [facility] [address] [id number] [address] [place] [address], [place] [address] Jun, [facility] [address] [id number] [address] [place] [address], [place] [address] Jun, [facility] [address] [id number] [address] [place] [address], [place] [address] Jun, [facility] [address] [id number] [address] [place] [address], [place] [address] Jun, [facility] [address] [id number] [address] [place] [address], [place] [address] Jun, [facility] [address] [id number] [address] [place] [address], [place] [address] Jun, [facility] [address] [id number] [address] [place] [address], [place] [address] May, [facility] [address] [id number] [address] [place] [address], [place] [address] May, [facility] [address] [id number] [address] [place] [address], [place] [address] May, [facility] [address] [id number] [address] [place] [address], [place] [address] May, [facility] [address] [id number] [address] [place] [address], [place] [address] May, [facility] [address] [id number] [address] [place] [address], [place] [address] May, [facility] [address] [id number] [address] [place] [address], [place] [address] May, [facility] [address] [id number] [address] [place] [address], [place] [address] May, [facility] [address] [id number] [address] [place] [address], [place] [address] Apr, [facility] [address] [id number] [address] [place] [address], [place] [address] Apr, [facility] [address] [id number] [address] [place] [address], [place] [address] Apr, [facility] [address] [id number] [address] [place] [address], [place] [address] Apr, [facility] [address] [id number] [address] [place] [address], [place] [address] Mar, [facility] [address] [id number] [address] [place] [address], [place] [address] Mar, [facility] [address] [id number] [address] [place] [address], [place] [address] Mar, [facility] [address] [id number] [address] [place] [address], [place] [address] Feb, [facility] [address] [id number] [address] [place] [address], [place] [address] Feb, [facility] [address] [id number] [address] [place] [address], [place] [address] Feb, [facility] [address] [id number] [address] [place] [address], [place] [address] Feb, [facility] [address] [id number] [address] [place] [address], [place] [address] Feb, [facility] [address] [id number] [address] [place] [address], [place] [address] Feb, [facility] [address] [id number] [address] [place] [address], [place] [address] Jan, [facility] [address] [id number] [address] [place] [address], [place] [address] Jan, [facility] [address] [id number] [address] [place] [address], [place] [address] Jan, [facility] [address] [id number] [address] [place] [address], [place] [address] Jan, [facility] [address] [id number] [address] [place] [address], [place] [address] Jan, [facility] [address] [id number] [address] [place] [address], [place] [address] Jan, [facility] [address] [id number] [address] [place] [address], [place] [address] Jan, [facility] [address] [id number] [address] [place] [address], [place] [address] Dec, [facility] [address] [id number] [address] [place] [address], [place] [address] 16 Dec, 2012 [facility] [address] [id number] [address] [place] [address], [place] [address] 10 Dec, 2012 [facility] [address] [id number] [address] [place] [address], [place] [address] 05 Dec, 2012 [facility] [address] [id number] [address] [place] [address], [place] [address] Nov, [facility] [address] [id number] [address] [place] [address], [place] [address] Nov, [facility] [address] [id number] [address] [place] [address], [place] [address] Nov, [facility] [address] [id number] [address] [place] [address], [place] [address] Nov, [facility] [address] [id number] [address] [place] [address], [place] [address] Nov, [facility] [address] [id number] [address] [place] [address], [place] [address] Nov, [facility] [address] [id number] [address] [place] [address], [place] [address] Nov, [facility] [address] [id number] [address] [place] [address], [place] [address] Oct, [facility] [address] [id number] [address] [place] [address], [place] [address] Oct, [facility] [address] [id number] [address] [place] [address], [place] [address] Oct, [facility] [address] [id number] [address] [place] [address], [place] [address] Oct, [facility] [address] [id number] [address] [place] [address], [place] [address] Oct, [facility] [address] [id number] [address] [place] [address], [place] [address] Oct, [facility] [address] [id number] [address] [place] [address], [place] [address] Oct, [facility] [address] [id number] [address] [place] [address], [place] [address] Oct, [facility] [address] [id number] [address] [place] [address], [place] [address] Sep, mananzCHBERTHA PEREZ [address] [id number] [id number] August, [facility] [address] [id number] [address] [place] [address], [place] [address] August, [facility] [address] [id number] [address] [place] [address], [place] [address] Jul, [facility] [address] [id number] [address] [place] [address], [place] [address] 29 Jul, 2012 [facility] [address] [id number] [address] [place] [address], [place] [address] 25 Jul, 2012 [facility] [address] [id number] [address] [place] [address], [place] [address] 22 Jul, 2012 [facility] [address] [id number] [address] [place] [address], [place] [address] 18 Jul, 2012 [facility] [address] [id number] [address] [place] [address], [place] [address] 17 Jul, 2012 [facility] [address] [id number] [address] [place] [address], [place] [address] 16 Jul, 2012 [facility] [address] [id number] [address] [place] [address], [place] [address] Jun, [facility] [address] [id number] [address] [place] [address], [place] [address] Jun, [facility] [address] [id number] [address] [place] [address], [place] [address] Jun, [facility] [address] [id number] [address] [place] [address], [place] [address] 04 Jun, 2012 [facility] [address] [id number] [address] [place] [address], [place] [address] Jun, [facility] [address] [id number] [address] [place] [address], [place] [address] May, [facility] [address] [id number] [address] [place] [address], [place] [address] 18 May, 2012 [facility] [address] [id number] [address] [place] [address], [place] [address] 04 May, 2012 [facility] [address] [id number] [address] [place] [address], [place] [address] 15 Apr, 2012 [facility] [address] [id number] [address] [place] [address], [place] [address] 14 Apr, 2012 [facility] [address] [id number] [address] [place] [address], [place] [address] Apr, [facility] [address] [id number] [address] [place] [address], [place] [address] Mar, [facility] [address] [id number] [address] [place] [address], [place] [address] Mar, [facility] [address] [id number] [address] [place] [address], [place] [address] Mar, [facility] [address] [id number] [address] [place] [address], [place] [address] Mar, [facility] [address] [id number] [address] [place] [address], [place] [address] Mar, [facility] [address] [id number] [address] [place] [address], [place] [address] Mar, [facility] [address] [id number] [address] [place] [address], [place] [address] Feb, [facility] [address] [id number] [address] [place] [address], [place] [address] Feb, [facility] [address] [id number] [address] [place] [address], [place] [address] Jan, [facility] [address] [id number] [address] [place] [address], [place] [address] Jan, [facility] [address] [id number] [address] [place] [address], [place] [address] Dec, [facility] [address] [id number] [address] [place] [address], [place] [address] Nov, [facility] [address] [id number] [address] [place] [address], [place] [address] Nov, [facility] [address] [id number] [address] [place] [address], [place] [address] Nov, [facility] [address] [id number] [address] [place] [address], [place] [address] Nov, [facility] [address] [id number] [address] [place] [address], [place] [address] Oct, [facility] [address] [id number] [address] [place] [address], [place] [address] Oct, [facility] [address] [id number] [address] [place] [address], [place] [address] Oct, [facility] [address] [id number] [address] [place] [address], [place] [address] Sep, [facility] [address] [id number] [address] [place] [address], [place] [address] Sep, [facility] [address] [id number] [address] [place] [address], [place] [address] Sep, [facility] [address] [id number] [address] [place] [address], [place] [address] August, [facility] [address] [id number] [address] [place] [address], [place] [address] August, [facility] [address] [id number] [address] [place] [address], [place] [address] Jul, [facility] [address] [id number] [address] [place] [address], [place] [address] 24 Jul, 2011 [facility] [address] [id number] [address] [place] [address], [place] [address] Jul, [facility] [address] [id number] [address] [place] [address], [place] [address] Jul, [facility] [address] [id number] [address] [place] [address], [place] [address] 14 Jun, 2011 [facility] [address] [id number] [address] [place] [address], [place] [address] 06 May, 2011 [facility] [address] [id number] [address] [place] [address], [place] [address] Apr, [facility] [address] [id number] [address] [place] [address], [place] [address] Apr, [facility] [address] [id number] [address] [place] [address], [place] [address] Apr, [facility] [address] [id number] [address] [place] [address], [place] [address] Apr, [facility] [address] [id number] [address] [place] [address], [place] [address] Apr, [facility] [address] [id number] [address] [place] [address], [place] [address] Apr, [facility] [address] [id number] [address] [place] [address], [place] [address] Mar, [facility] [address] [id number] [address] [place] [address], [place] [address] Mar, [facility] [address] [id number] [address] [place] [address] Feb, [facility] [address] [id number] [address] [place] [address], [place] [address] Feb, [facility] [address] [id number] [address] [place] [address] Feb, [facility] [address] [id number] [address] [place] [id number] Feb, [facility] [address] [id number] [address] [place] [id number] Jan, [facility] [address] [id number] [address] [place] [address], [place] [address] Jan, [facility] [address] [id number] [address] [place] [id number] Jan, [facility] [address] [id number] [address] [place] [id number] Jan, [facility] [address] [id number] [address] [place] [address] Nov, [facility] [address] [id number] [address] [place] [address], [place] [address] 03 Mar, 2010 [facility] [address] [id number] [address] [place] [id number] 02 Mar, 2010 [facility] [address] [id number] [address] [place] [address], [place] [address] 30 Feb, 2010 [facility] [address] [id number] [address] [place] [id number] 15 Feb, 2010 [facility] [address] [id number] [address] [place] [address], [place] [address] Jan, [facility] [address] [id number] [address] [place] [id number] Jan, [facility] [address] [id number] [address] [place] [address] Sep, [facility] [address] [id number] [address] [place] [id number] 16 May, 2009 [facility] [address] [id number] [address] [place] [address] Apr, [facility] [address] [id number] [address] [place] [id number] Mar, [facility] [address] [id number] [address] [place] [id number] 15 Feb, 2009 [facility] [address] [id number] [address] [place] [id number] 10 Feb, 2009 [facility] [address] [id number] [address] [place] [id number] 10 Feb, 2009 [facility] [address] [id number] [address] [place] [id number] 22 Jan, 2009 [facility] [address] [id number] [address] [place] [id number] 13 Jan, 2009 [facility] [address] [facility] [id number] [address] [address] Jan, [facility] [address] [facility] [id number] [address] [place] [id number] Jan, [facility] [address] [facility] [id number] [address] [address] August, IMMUNIZATIONS No Known Immunizations SOCIAL HISTORY Never Assessed REASON FOR VISIT Diabetic check DONTE Caraballo PLAN OF CARE Activity Details Follow Up 3 Months Reason:DM VITAL SIGNS Height 65 in 2018-03-24 Weight 189.5 lbs 2018-03-24 Temperature 98.2 degrees Fahrenheit 2018-03-24 Heart Rate 102 bpm 2018-03-24 Respiratory Rate 20 2018-03-24 BMI 31.53 kg/m2 2018-03-24 Blood pressure systolic 118 mmHg 2018-03-24 Blood pressure diastolic 72 mmHg 2018-03-24 MEDICATIONS Medication Instructions Dosage Frequency Start Date End Date Duration S tatus Metoprolol Tartrate 25 MG Orally daily 1 tablet with food 24h Active TRUEplus Lancets 33G - test blood sugar 12h Jan, 90 days Active glyburide 2.5 Oral twice a day 0.5 tab 12h 31 A ctive Desmopressin Acetate 0.2 MG Orally bedtime 3 tabs Active Folic Acid 1 MG take 0.5 tablet by Oral route 1 time per day 31 Active Toviaz 8 MG Orally Once a day 1 tablet 24h A ctive TRUEtest Test - test blood sugar 12h Nov, 90 days Active Seroquel 300 MG Orally Once a day 2 tablets every night 24h 30 Active Quetiapine Fumarate 100 MG TAKE 1 TABLET BY MOUTH EACH MORNING 30 Active Valsartan-Hydrochlorothiazide 80-12.5 MG Orally Once a day 1 tablet 24h Active Tamsulosin HCl 0.4 MG Orally 30 min after meal once a day 2 capsule Active MetFORMIN HCl ER 500 MG Orally 2 times a day 2 tablets with meals 1 2h 18 Sep, 2017 31 days Active Simvastatin 20 MG Orally Once a day 1 tablet at bedtime 24h 31 Active Divalproex Sodium ER 500 MG TAKE 2 TABLETS BY MOUTH EACH EVENING 30 Active Metamucil 0.52 GM Orally one time a day 3 caps Active Pioglitazone HCl 15 MG Orally Once a day 1 tablet 24h Active GNP Natural Fiber 0.52 GM Orally Once a day 3 capsules 24h 31 Active Ventolin HFA 108 (90 Base) MCG/ACT Inhalation every 4 hrs 2 puffs a s needed 4h 31 Active Depakote ER 500 MG Orally every night 2 tablet 3 1 Active RESULTS Name Result Date Reference Range A1C (IN HOUSE) 2018-03-24 A1C IN HOUSE 5.8 4.3 - 5.6 % Previous A1c 7.5 Lot [id number] Exp date 06/2019 PROCEDURES Procedure Date Ordered Result Body Site GLYCATED HEMOGLOBIN TEST Mar 24, 2018 INSTRUCTIONS MEDICATIONS ADMINISTERED No Known Medications MEDICAL [...] age 6 Hospitalization History surgery Hospitalization History [facility], [facility] treatment few times for BH
--- OUTSIDE RECORDS SUMMARY | 2019-09-29 10:58 | XMS REPORT ---
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 Active 82979580 Problem Open-angle glaucoma of both eyes, unspecified glaucoma stage, unspecified open-angle glaucoma type H40.10X0 Acti ve 60216124 Problem Adjustment disorder, unspecified type F43.20 Active 88060992 Problem Obstructive sleep apnea G47.33 Active 13950768 Problem Hypertensive retinopathy of both eyes H35.033 Active 6053698 Problem Type 2 diabetes mellitus with complication E11.8 Active 05497282 Problem Essential hypertension I10 Active 50694018 Problem Diabetes E11.9 Active 31180079 Problem Bipolar disorder, in partial remission, most rec ent episode manic F31.73 Active 01482592 Problem Intermittent explosive disorder in adult F63.81 Active 73208008 Problem Other diabetic neurological complication associated with type 2 diabetes mellitus E11.49 Active 704022481 Problem Depression F32.9 Active 94065183 Problem Neuropathy G62.9 Active 628439680 Problem Intermittent explosive disorder F63.81 Active 79957223 Problem Bipolar disorder, unspecified F31.9 Active 30726342 Problem Mild intellectual disability F70 A ctive 58978679 Problem Reactive airway disease, mild intermittent, uncomplicated J45.20 Active 405615417 Problem Gastroesophageal reflux disease without esophagitis K21.9 Active 077974680 ALLERGIES No Information ENCOUNTERS Encounter Location Date Diagnosis [facility] [address] [facility] [id number] [address] [place] [id number] August, [facility] [address] [facility] [id number] [address] [place] [address] Jul, [facility] [address] [facility] [id number] [address] [place] [id number] Jun, [facility] [address] [place] [address] May, Bilateral impacted cerumen H 61.23 [facility] [address] [place] [id number] [address] [place] [address] Apr, Bipolar disorder, unspecifie d F31.9 ; Intermittent explosive disorder in adult F63.81 ; Type 2 diabetes mellitus with complication E11.8 ; Tobacco abuse Z72.0 and Colon cancer screening Z12.11 [facility] [address] [place] [id number] [address] [place] [address] Apr, Onychomycosis B35.1 and Othe r diabetic neurological complication associated with type 2 diabetes mellitus E11.49 [place] [address] [place] [id number] [address] [place] [address] Apr, Intermittent explosive disor salvatore in adult F63.81 ; Bipolar disorder, unspecified F31.9 and Mild intellectual disability F70 [facility] [address] [place] [address] Mar, Diabetes E11.9 [facility] [address] [place] [id number] [address] [place] [address] 20 Jan, 2018 Encounter for immunization Z 23 [facility] [address] [place] [id number] [address] [place] [address] Jan, Tinea pedis of both feet B35 .3 ; Other diabetic neurological complication associated with type 2 diabetes mellitus E11.49 and Onychomycosis B35.1 [facility] [address] [place] [id number] [address] [place] [address] Nov, Type 2 diabetes mellitus wit h complication E11.8 [facility] [address] [place] [id number] [address] [place] [address] Nov, [facility] [address] [place] [id number] [address] [place] [address] Oct, Intermittent explosive disor salvatore in adult F63.81 ; Bipolar disorder, unspecified F31.9 and Mild intellectual disability F70 [facility] [address] [facility] [id number] [address] [place] [address] Oct, [facility] [address] [id number] [address] [place] [address] [id number] Oct, Dental examination Z01.20 [facility] [address] [facility] [id number] [address] [place] [address] Oct, Onychomycosis B35.1 and Othe r diabetic neurological complication associated with type 2 diabetes mellitus E11.49 [facility] [address] [facility] [id number] [address] [place] [phone] Sep, Type 2 diabetes mellitus wit h complication E11.8 and Colon cancer screening Z12.11 [facility] [address] [facility] [id number] [address] [place] [address] Sep, Type 2 diabetes mellitus wit h complication E11.8 ; Colon cancer screening Z12.11 and Neuropathy G62.9 [facility] [address] [facility] [id number] [address] [place] [address] August, Diabetes E11.9 [facility] [address] [id number] [address] [place] [address] [id number] Jul, Dental examination Z01.20 [facility] [address] [facility] [id number] [address] [place] [address] May, Mild intellectual disability F70 [facility] [address] [facility] [id number] [address] [place] [address] May, Mild intellectual disability F70 ; High risk medication use Z79.899 ; Intermittent explosive disorder in adult F63.81 and Bipolar disorder, unspecified F31.9 [facility] [address] [facility] [id number] [address] [place] [id number] May, [facility] [address] [id number] [address] [place], [place] [id number] 05 May, 2017 [facility] [address] [id number] [address] [place] [address] Apr, Type 2 diabetes mellitus wit h complication E11.8 ; Mild intellectual disability F70 ; Gastroesophageal reflux disease without esophagitis K21.9 ; Reactive airway disease, mild intermittent, uncomplicated J45.20 and Tobacco abuse Z72.0 [facility] [address] [id number] [address] [place] [address] Apr, High risk medication use Z79 .899 ; Mild intellectual disability F70 ; Intermittent explosive disorder in adult F63.81 and Bipolar disorder, unspecified F31.9 [facility] [address] [id number] [place] [address] [id number] Mar, Encounter for dental exam an d cleaning w/o abnormal findings Z01.20 [facility] [address] [id number] [place] [address] [id number] Mar, Dental examination Z01.20 [facility] [address] [id number] [address] [place] [phone] 12 Jan, 2017 [facility] [address] [id number] [address] [place] [address] Jan, [facility] [address] [id number] [address] [place] [address] Jan, Mild intellectual disability F70 ; Bipolar disorder, unspecified F31.9 and Intermittent explosive disorder in adult F63.81 [facility] [address] [id number] [address] [place] [id number] 02 Jan, 2017 Diabetes E11.9 [facility] [address] [id number] [address] [place] [address] [id number] 13 Dec, 2016 Encounter for dental examina tion and cleaning without abnormal findings Z01.20 [facility] [address] [id number] [address] [place] [id number] 12 Dec, 2016 Bipolar disorder, unspecifie d F31.9 ; Intermittent explosive disorder in adult F63.81 and Mild intellectual disability F70 [facility] [address] [id number] [address] [place] [address] Nov, Diabetes E11.9 [facility] [address] [id number] [address] [place] [id number] Nov, [facility] [address] [id number] [address] [place] [id number] 14 Nov, 2016 Diabetes E11.9 and Colon can cer screening Z12.11 [facility] [id number] [place] [address] [id number] Sep, Dental examination Z01.20 [facility] [address] [id number] [address] [place] [address] [id number] Sep, Encounter for dental examina tion and cleaning without abnormal findings Z01.20 [facility] [address] [id number] [address] [place] [id number] 13 Sep, 2016 Bipolar disorder, unspecifie d F31.9 [facility] [address] [id number] [address] [place] [id number] 12 Sep, 2016 Bipolar disorder, unspecifie d F31.9 [facility] [address] [id number] [address] [place] [address] Jul, [facility] [address] [id number] [address] [place] [id number] Jul, Type 2 diabetes mellitus wit h complication E11.8 [facility] [address] [id number] [address] [place] [address] [id number] 15 Jun, 2016 Encounter for dental examina tion and cleaning without abnormal findings Z01.20 [facility] [address] [id number] [id number] 15 Jun, 2016 Dental examination Z01.20 [facility] [address] [id number] [address] [place] [phone] 18 Apr, 2016 Sports physical Z02.5 [facility] [address] [id number] [address] [place] [id number] 14 Mar, 2016 Bipolar disorder, in partial remission, most recent episode manic F31.73 and Intermittent explosive disorder in adult F63.81 [facility] [address] [id number] [address] [place] [id number] 08 Mar, 2016 [facility] [address] [id number] [address] [place] [id number] 06 Mar, 2016 Diabetes E11.9 [facility] [address] [id number] [place] [address] [id number] Feb, Encounter for dental examina tion and cleaning without abnormal findings Z01.20 [facility] [address] [id number] [address] [place] [id number] 22 Dec, 2015 Nocturnal hypoxemia G47.34 a nd Encounter for immunization Z23 [facility] [address] [id number] [address] [place] [phone] 15 Dec, 2015 [facility] [address] [id number] [address] [place] [phone] Dec, [facility] [address] [id number] [address] [place] [address] Dec, Bipolar disorder, unspecifie d F31.9 [facility] [address] [id number] [address] [place] [address] [id number] Oct, Encounter for dental examina tion and cleaning without abnormal findings Z01.20 [facility] [id number] [place] [address] [id number] Oct, Dental examination Z01.20 [facility] [address] [id number] [address] [place] [id number] 07 Oct, 2015 Diabetes E11.9 [facility] [address] [facility] [id number] [address] [place] [id number] 05 Oct, 2015 Diabetes E11.9 ; Reactive ai rway disease, mild intermittent, uncomplicated J45.20 and Tobacco abuse Z72.0 [place] [address] [place] [id number] [address] [place] [id number] Sep, Bipolar disorder, unspecifie d F31.9 and Depression F32.9 [place] [address] [place] [id number] [address] [place] [id number] Sep, [place] [address] [place] [id number] [place] [phone] August, Tinea pedis of both feet B35 .3 and DM w/o complication type II, uncontrolled E11.65 [place] [address] [place] [id number] [place] [address] Jul, [place] [address] [id number] Jul, [place] [address] [id number] Jul, Obstructive sleep apnea G47. 33 [place] [address] [place] [id number] [place] [id number] Jun, Diabetes E11.9 [place] [address] [address] Jun, [place] [address] [address] Jun, [place] [address] [id number] Jun, Bipolar disorder, unspecifie d F31.9 and Mental retardation F79 [place] [address] [place] [id number] [place] [address] Apr, [place] [address] [id number] Feb, Diabetes E11.9 ; Encounter f or immunization Z23 ; Cough R05 and Nicotine abuse Z72.0 [place] [address] [address] Jan, Bipolar disorder, unspecifie d F31.9 and Diabetes mellitus without mention of complication, type II or unspecified type, uncontrolled 250.02 [place] [address] [id number] Jan, [facility] [address] [address] Dec, Reactive airway disease 493. 90 and Enuresis 788.30 [place] [address] [place] [id number] [place] [address] Dec, [place] [address] [address] Nov, [place] [address] [address] Nov, [place] [address] [address] Nov, Annual physical exam V70.0 ; Urinary incontinence 788.30 ; Diabetes 250.00 and Hypertension 401.9 [place] [address] [id number] Oct, Diabetes mellitus without me ntion of complication, type II or unspecified type, uncontrolled 250.02 [place] [address] [address] Oct, Diabetes mellitus without me ntion of complication, type II or unspecified type, uncontrolled 250.02 [facility] [address] [id number] Oct, Diabetes mellitus without me ntion of complication, type II or unspecified type, uncontrolled 250.02 [place] [address] [address] Oct, [place] [address] [address] Oct, [facility] [address] [id number] Oct, Bipolar disorder, unspecifie d 296.80 [facility] [address] [id number] [address] [place] [address] [id number] Sep, Dental examination V72.2 [facility] [address] [id number] [address] [place] [phone] August, [facility] [address] [id number] [address] [place] [address] [id number] August, Dental examination V72.2 [facility] [address] [id number] [address] [place] [id number] August, [facility] [address] [id number] [address] [place] [id number] Jul, [facility] [address] [id number] [address] [place] [id number] Jul, [facility] [address] [id number] [address] [place] [id number] Jun, [facility] [address] [id number] [address] [place] [id number] Jun, [facility] [address] [id number] [address] [place] [phone] Jun, [facility] [address] [id number] [address] [place] [phone] Jun, [facility] [address] [id number] [address] [place] [id number] May, [facility] [address] [id number] [address] [place] [address] May, [facility] [address] [id number] [address] [place] [phone] May, [facility] [address] [id number] [address] [place] [phone] May, [facility] [address] [id number] [address] [place] [address], [place] [address] 16 May, 2014 [facility] [address] [id number] [address] [place] [address], [place] [address] 16 May, 2014 [facility] [address] [id number] [address] [place] [address], [place] [address] 16 May, 2014 [facility] [address] [id number] [address] [place] [address], [place] [address] 16 May, 2014 [facility] [address] [id number] [address] [place] [address], [place] [address] 16 May, 2014 [facility] [address] [id number] [address] [place] [address], [place] [address] 16 May, 2014 [facility] [address] [id number] [address] [place] [address], [place] [address] 16 May, 2014 [facility] [address] [id number] [address] [place] [address], [place] [address] 16 May, 2014 [facility] [address] [id number] [address] [place] [address], [place] [address] 16 May, 2014 [facility] [address] [id number] [address] [place] [address], [place] [address] May, 2014 [facility] [address] [id number] [address] [place] [address], [place] [address] May, [facility] [address] [id number] [address] [place] [address], [place] [address] Apr, [facility] [address] [id number] [address] [place] [address], [place] [address] Apr, [facility] [address] [id number] [address] [place] [address], [place] [address] Apr, [facility] [address] [id number] [address] [place] [address], [place] [address] Apr, [facility] [address] [id number] [address] [place] [id number] Apr, [facility] [address] [id number] [address] [place] [address], [place] [address] Apr, [facility] [address] [id number] [address] [place] [address], [place] [address] Apr, [facility] [address] [id number] [address] [place] [address], [place] [address] Apr, [facility] [address] [id number] [address] [place] [address], [place] [address] Apr, [facility] [address] [id number] [address] [place] [address], [place] [address] Apr, [facility] [address] [id number] [address] [place] [address], [place] [address] Apr, [facility] [address] [id number] [address] [place] [address], [place] [address] Apr, [facility] [address] [id number] [address] [place] [address], [place] [address] Mar, [facility] [address] [id number] [address] [place] [address], [place] [address] Mar, [facility] [address] [id number] [address] [place] [address], [place] [address] Mar, [facility] [address] [id number] [address] [place] [address], [place] [address] Mar, [facility] [address] [id number] [address] [place] [address], [place] [address] Mar, [facility] [address] [id number] [address] [place] [address], [place] [address] Mar, [facility] [address] [id number] [address] [place] [address], [place] [address] Feb, [facility] [address] [id number] [address] [place] [address], [place] [address] Feb, [facility] [address] [id number] [address] [place] [address], [place] [address] 13 Feb, 2014 [facility] [address] [id number] [address] [place] [address], [place] [address] Feb, [facility] [address] [id number] [address] [place] [address], [place] [address] 14 Jan, 2014 [facility] [address] [id number] [address] [place] [address], [place] [address] 14 Jan, 2014 [facility] [address] [id number] [address] [place] [address], [place] [address] 14 Jan, 2014 [facility] [address] [id number] [address] [place] [address], [place] [address] 14 Jan, 2014 [facility] [address] [id number] [address] [place] [address], [place] [address] 22 Dec, 2013 [facility] [address] [id number] [address] [place] [address], [place] [address] 22 Dec, 2013 [facility] [address] [id number] [address] [place] [address], [place] [address] 15 Dec, 2013 [facility] [address] [id number] [address] [place] [address], [place] [address] 15 Dec, 2013 [facility] [address] [id number] [address] [place] [address], [place] [address] Nov, [facility] [address] [id number] [address] [place] [address], [place] [address] Nov, [facility] [address] [id number] [address] [place] [address], [place] [address] Nov, [facility] [address] [id number] [address] [place] [address], [place] [address] Nov, [facility] [address] [id number] [address] [place] [address], [place] [address] Nov, [facility] [address] [id number] [address] [place] [address], [place] [address] Nov, [facility] [address] [id number] [address] [place] [address], [place] [address] Nov, [facility] [address] [id number] [address] [place] [address], [place] [address] Oct, [facility] [address] [id number] [address] [place] [address], [place] [address] Oct, [facility] [address] [id number] [address] [place] [address], [place] [address] Oct, [facility] [address] [id number] [address] [place] [address], [place] [address] Oct, [facility] [address] [id number] [address] [place] [address], [place] [address] Oct, [facility] [address] [id number] [address] [place] [address], [place] [address] Oct, [facility] [address] [id number] [address] [place] [address], [place] [address] Oct, [facility] [address] [id number] [address] [place] [address], [place] [address] Sep, [facility] [address] [id number] [address] [place] [address], [place] [address] Sep, [facility] [address] [id number] [address] [place] [address], [place] [address] Sep, [facility] [address] [id number] [address] [place] [address], [place] [address] Sep, [facility] [address] [id number] [address] [place] [address], [place] [address] Sep, [facility] [address] [id number] [address] [place] [address], [place] [address] Jul, [facility] [address] [id number] [address] [place] [address], [place] [address] Jul, [facility] [address] [id number] [address] [place] [address], [place] [address] Jul, [facility] [address] [id number] [place] [address] Jul, [facility] [address] [id number] [address] [place] [address], [place] [address] Jul, [facility] [address] [id number] [address] [place] [address], [place] [address] Jul, [facility] [address] [id number] [address] [place] [address], [place] [address] Jul, [facility] [address] [id number] [address] [place] [address], [place] [address] Jul, [facility] [address] [id number] [address] [place] [address], [place] [address] Jul, [facility] [address] [id number] [address] [place] [address], [place] [address] Jul, [facility] [address] [id number] [address] [place] [address], [place] [address] Jul, [facility] [address] [id number] [address] [place] [address], [place] [address] Jul, [facility] [address] [id number] [address] [place] [address], [place] [address] Jun, [facility] [address] [id number] [address] [place] [address], [place] [address] Jun, [facility] [address] [id number] [address] [place] [address], [place] [address] Jun, [facility] [address] [id number] [address] [place] [address], [place] [address] Jun, [facility] [address] [id number] [address] [place] [address], [place] [address] Jun, [facility] [address] [id number] [address] [place] [address], [place] [address] Jun, [facility] [address] [id number] [address] [place] [address], [place] [address] Jun, [facility] [address] [id number] [address] [place] [address], [place] [address] Jun, [facility] [address] [id number] [address] [place] [address], [place] [address] May, [facility] [address] [id number] [address] [place] [address], [place] [address] May, [facility] [address] [id number] [address] [place] [address], [place] [address] May, [facility] [address] [id number] [address] [place] [address], [place] [address] May, [facility] [address] [id number] [address] [place] [address], [place] [address] May, [facility] [address] [id number] [address] [place] [address], [place] [address] May, [facility] [address] [id number] [address] [place] [address], [place] [address] May, [facility] [address] [id number] [address] [place] [address], [place] [address] May, [facility] [address] [id number] [address] [place] [address], [place] [address] Apr, [facility] [address] [id number] [address] [place] [address], [place] [address] Apr, [facility] [address] [id number] [address] [place] [address], [place] [address] Apr, [facility] [address] [id number] [address] [place] [address], [place] [address] Apr, [facility] [address] [id number] [address] [place] [address], [place] [address] Mar, [facility] [address] [id number] [address] [place] [address] Mar, [facility] [address] [id number] [address] [place] [address], [place] [address] Mar, [facility] [address] [id number] [address] [place] [address], [place] [address] Feb, [facility] [address] [id number] [address] [place] [address], [place] [address] Feb, [facility] [address] [id number] [address] [place] [address], [place] [address] Feb, [facility] [address] [id number] [address] [place] [address], [place] [address] Feb, [facility] [address] [id number] [address] [place] [address], [place] [address] Feb, [facility] [address] [id number] [address] [place] [address], [place] [address] Feb, [facility] [address] [id number] [address] [place] [address], [place] [address] Jan, [facility] [address] [id number] [address] [place] [address], [place] [address] Jan, [facility] [address] [id number] [address] [place] [address], [place] [address] Jan, [facility] [address] [id number] [address] [place] [address] Jan, [facility] [address] [id number] [address] [place] [address] Jan, [facility] [address] [id number] [address] [place] [address], [place] [address] Jan, [facility] [address] [id number] [address] [place] [address], [place] [address] Jan, [facility] [address] [id number] [address] [place] [address], [place] [address] Dec, [facility] [address] [id number] [address] [place] [address], [place] [address] 16 Dec, 2012 [facility] [address] [id number] [address] [place] [address], [place] [address] Dec, [facility] [address] [id number] [address] [place] [address], [place] [address] Dec, [facility] [address] [id number] [address] [place] [address], [place] [address] Nov, [facility] [address] [id number] [address] [place] [address], [place] [address] Nov, [facility] [address] [id number] [address] [place] [address], [place] [address] Nov, [facility] [address] [id number] [address] [place] [address], [place] [address] Nov, [facility] [address] [id number] [address] [place] [address], [place] [address] Nov, [facility] [address] [id number] [address] [place] [address], [place] [address] Nov, [facility] [address] [id number] [address] [place] [address], [place] [address] Nov, [facility] [address] [id number] [address] [place] [address], [place] [address] Oct, [facility] [address] [id number] [address] [place] [address], [place] [address] Oct, [facility] [address] [id number] [address] [place] [address], [place] [address] Oct, [facility] [address] [id number] [address] [place] [address], [place] [address] Oct, [facility] [address] [id number] [address] [place] [address], [place] [address] Oct, [facility] [address] [id number] [address] [place] [address], [place] [address] Oct, [facility] [address] [id number] [address] [place] [address], [place] [address] Oct, [facility] [address] [id number] [address] [place] [address], [place] [address] Oct, [facility] [address] [id number] [address] [place] [address], [place] [address] Sep, [facility] [address] [id number] COFF[place]SE [place] [id number] August, [facility] [address] [id number] [address] [place] [address], [place] [address] August, [facility] [address] [id number] [address] [place] [address], [place] [address] Jul, [facility] [address] [id number] [address] [place] [address], [place] [address] Jul, [facility] [address] [id number] [address] [place] [address], [place] [address] Jul, [facility] [address] [id number] [address] [place] [address], [place] [address] Jul, [facility] [address] [id number] [address] [place] [address], [place] [address] Jul, [facility] [address] [id number] [address] [place] [address], [place] [address] Jul, [facility] [address] [id number] [address] [place] [address], [place] [address] 16 Jul, 2012 [facility] [address] [id number] [address] [place] [address], [place] [address] Jun, [facility] [address] [id number] [address] [place] [address], [place] [address] 18 Jun, 2012 [facility] [address] [id number] [address] [place] [address], [place] [address] Jun, [facility] [address] [id number] [address] [place] [address], [place] [address] 04 Jun, 2012 [facility] [address] [id number] [address] [place] [address], [place] [address] Jun, [facility] [address] [id number] [address] [place] [address], [place] [address] 19 May, 2012 [facility] [address] [id number] [address] [place] [address], [place] [address] 18 May, 2012 [facility] [address] [id number] [address] [place] [address], [place] [address] May, [facility] [address] [id number] [address] [place] [address], [place] [address] 15 Apr, 2012 [facility] [address] [id number] [address] [place] [address], [place] [address] 14 Apr, 2012 [facility] [address] [id number] [address] [place] [address], [place] [address] Apr, [facility] [address] [id number] [address] [place] [address], [place] [address] Mar, [facility] [address] [id number] [address] [place] [address], [place] [address] Mar, [facility] [address] [id number] [address] [place] [address], [place] [address] Mar, [facility] [address] [id number] [address] [place] [address], [place] [address] Mar, [facility] [address] [id number] [address] [place] [address], [place] [address] Mar, [facility] [address] [id number] [address] [place] [address], [place] [address] Mar, [facility] [address] [id number] [address] [place] [address], [place] [address] Feb, [facility] [address] [id number] [address] [place] [address], [place] [address] Feb, [facility] [address] [id number] [address] [place] [address], [place] [address] Jan, [facility] [address] [id number] [address] [place] [address], [place] [address] Jan, [facility] [address] [id number] [address] [place] [address], [place] [address] Dec, [facility] [address] [id number] [address] [place] [address], [place] [address] Nov, [facility] [address] [id number] [address] [place] [address], [place] [address] Nov, [facility] [address] [id number] [address] [place] [address], [place] [address] Nov, [facility] [address] [id number] [address] [place] [address], [place] [address] Nov, [facility] [address] [id number] [address] [place] [address], [place] [address] Oct, [facility] [address] [id number] [address] [place] [address], [place] [address] Oct, [facility] [address] [id number] [address] [place] [address], [place] [address] Oct, [facility] [address] [id number] [address] [place] [address], [place] [address] Sep, [facility] [address] [id number] [address] [place] [address] Sep, [facility] [address] [id number] [address] [place] [address], [place] [address] Sep, [facility] [address] [id number] [address] [place] [address], [place] [address] August, [facility] [address] [id number] [address] [place] [address], [place] [address] August, [facility] [address] [id number] [address] [place] [address], [place] [address] 27 Jul, 2011 [facility] [address] [id number] [address] [place] [address], [place] [address] 24 Jul, 2011 [facility] [address] [id number] [address] [place] [address], [place] [address] 17 Jul, 2011 [facility] [address] [id number] [address] [place] [address], [place] [address] Jul, [facility] [address] [id number] [address] [place] [address], [place] [address] 14 Jun, 2011 [facility] [address] [id number] [address] [place] [address], [place] [address] May, [facility] [address] [id number] [address] [place] [address], [place] [address] Apr, [facility] [address] [id number] [address] [place] [address], [place] [address] Apr, [facility] [address] [id number] [address] [place] [address], [place] [address] Apr, [facility] [address] [id number] [address] [place] [address], [place] [address] Apr, [facility] [address] [id number] [address] [place] [address], [place] [address] Apr, [facility] [address] [id number] [address] [place] [address], [place] [address] Apr, [facility] [address] [id number] [address] [place] [address], [place] [address] Mar, [facility] [address] [id number] [address] [place] [address], [place] [address] Mar, [facility] [address] [id number] [address] [place] [address], [place] [address] 29 Feb, 2011 [facility] [address] [id number] [address] [place] [address], [place] [address] 18 Feb, 2011 [facility] [address] [id number] [address] [place] [address], [place] [address] 17 Feb, 2011 [facility] [address] [id number] [address] [place] [address], [place] [address] 09 Feb, 2011 [facility] [address] [id number] [address] [place] [address], [place] [address] Jan, [facility] [address] [id number] [address] [place] [address], [place] [address] 18 Jan, 2011 [facility] [address] [id number] [address] [place] [address], [place] [address] Jan, [facility] [address] [id number] [address] [place] [address], [place] [address] Jan, [facility] [address] [id number] [address] [place] [address], [place] [address] Nov, [facility] [address] [id number] [address] [place] [address], [place] [address] Mar, [facility] [address] [id number] [address] [place] [address], [place] [address] Mar, [facility] [address] [id number] [address] [place] [address], [place] [address] Feb, [facility] [address] [id number] [address] [place] [address] 15 Feb, 2010 [facility] [address] [id number] [address] [place] [address], [place] [address] Jan, [facility] [address] [id number] [address] [place] [address], [place] [address] Jan, [facility] [address] [id number] [address] [place] [address], [place] [address] 15 Sep, 2009 [facility] [address] [id number] [address] [place] [address] 16 May, 2009 [facility] [address] [id number] [address] [place] [address] Apr, [facility] [address] [id number] [address] [place] [address] Mar, [facility] [address] [id number] [address] [place] [address] Feb, [facility] [address] [id number] [address] [place] [address] Feb, [facility] [address] [id number] [address] [place] [address] Feb, [facility] [address] [id number] [address] [place] [address] Jan, [facility] [address] [id number] [address] [place] [address] Jan, [facility] [address] [id number] [address] [place] [address] Jan, [facility] [address] [id number] [address] [place] [address] Jan, [facility] [address] [id number] [address] [place] [address] August, IMMUNIZATIONS No Known Immunizations SOCIAL HISTORY Never Assessed REASON FOR VISIT [facility] PLAN OF CARE VITAL SIGNS MEDICATIONS Unknown [...] History [facility], inmd tie treatment few times for BH
--- OUTSIDE RECORDS SUMMARY | 2019-09-29 10:58 | XMS REPORT ---
Author Author Cameron PARK Organization [facility] Address [address] [place] [address] Care Team Providers Care Batch Unit Treater Name Role Phone VIVIANNATI AshfordIN Unavailable PROBLEMS Type Condition ICD9-CM Code WPE19-QG Code Onset Dates Condition S tatus SNOMED Code Problem Diabetes E11.9 Active 11042061 Problem Intermittent explosive disorder in adult F63.81 Active 65449711 Problem Bipolar disorder, in partial remission, most rec ent episode manic F31.73 Active 61086624 Problem Neuropathy G62.9 Active 220400271 Problem Other diabetic neurological complication associated with type 2 diabetes mellitus E11.49 Active 090702713 Problem Mild intellectual disability F70 A ctive 73469619 Problem Bipolar disorder, unspecified F31.9 Active 89464649 Problem Gastroesophageal reflux disease without esophagitis K21.9 Active 412663913 Problem Reactive airway disease, mild intermittent, uncomplicated J45.20 Active 971507208 Problem Adjustment disorder, unspecified type F43.20 Active 10978702 Problem Open-angle glaucoma of both eyes, unspecified glaucoma stage, unspecified open-angle glaucoma type H40.10X0 Acti ve 59998451 Problem 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 Active 27577842 Problem Reactive airway disease, unspecified asthma justin rity, uncomplicated J45.909 Active 808386683622 Problem Essential hypertension I10 Active 87670624 Problem Type 2 diabetes mellitus with complication E11.8 Active 45130754 Problem Hypertensive retinopathy of both eyes H35.033 Active 7503834 Problem Intermittent explosive disorder F63.81 Active 47580380 Problem Obstructive sleep apnea G47.33 Active 84386560 Problem Depression F32.9 Active 69358875 ALLERGIES No Information ENCOUNTERS Encounter Location Date Diagnosis [facility] [address] [facility] [id number] [address] [address] Apr, [facility] [address] [place] [id number] [address] [place] [address] Apr, [facility] [address] [facility] [id number] [address] [place] [address] Mar, [facility] [address] [facility] [id number] [address] [place] [address] [id number] Feb, [facility] [address] [facility] [id number] [address] [place] [address] Jan, Encounter for immunization Z 23 [facility] [address] [facility] [id number] [address] [place] [address] Jan, Tinea pedis of both feet B35 .3 ; Other diabetic neurological complication associated with type 2 diabetes mellitus E11.49 and Onychomycosis B35.1 [place] [address] [address] [facility] [id number] [address] [place] [address] Nov, Type 2 diabetes mellitus wit h complication E11.8 [facility] [address] [facility] [id number] [address] [place] [address] Nov, [facility] [address] [facility] [id number] [address] [place] [address] Oct, Intermittent explosive disor salvatore in adult F63.81 ; Bipolar disorder, unspecified F31.9 and Mild intellectual disability F70 [facility] [address] [facility] [id number] [address] [place] [address] Oct, [facility] [address] [facility] [id number] [address] [place] [address] [id number] Oct, Dental examination Z01.20 [facility] [address] [facility] [id number] [address] [place] [address] Oct, Onychomycosis B35.1 and Othe r diabetic neurological complication associated with type 2 diabetes mellitus E11.49 [facility] [address] [facility] [id number] [address] [place] [address] Sep, Type 2 diabetes mellitus wit h complication E11.8 and Colon cancer screening Z12.11 [facility] [address] [facility] [id number] [address] [place] [address] Sep, Type 2 diabetes mellitus wit h complication E11.8 ; Colon cancer screening Z12.11 and Neuropathy G62.9 [facility] [address] [facility] [id number] [address] [place] [address] August, Diabetes E11.9 [facility] [address] [id number] [address] [place] [address] [id number] Jul, Dental examination Z01.20 [facility] [address] [facility] [id number] [address] [place] [address] 27 May, 2017 Mild intellectual disability F70 [facility] [address] [facility] [id number] [address] [place] [address] May, Mild intellectual disability F70 ; High risk medication use Z79.899 ; Intermittent explosive disorder in adult F63.81 and Bipolar disorder, unspecified F31.9 [facility] [address] [facility] [id number] [address] [place] [address] May, [facility] [address] [facility] [id number] [address] [place] [address] May, [facility] [address] [facility] [id number] [address] [place] [address] Apr, Type 2 diabetes mellitus wit h complication E11.8 ; Mild intellectual disability F70 ; Gastroesophageal reflux disease without esophagitis K21.9 ; Reactive airway disease, mild intermittent, uncomplicated J45.20 and Tobacco abuse Z72.0 [facility] [address] [facility] [id number] [address] [place] [address] Apr, High risk medication use Z79 .899 ; Mild intellectual disability F70 ; Intermittent explosive disorder in adult F63.81 and Bipolar disorder, unspecified F31.9 [facility] [address] [id number] [address] [place] [address] [id number] Mar, Encounter for dental exam an d cleaning w/o abnormal findings Z01.20 [facility] [address] [id number] [address] [place] [address] [id number] Mar, Dental examination Z01.20 [facility] [address] [id number] [address] [place] [address] 12 Jan, 2017 [facility] [address] [id number] [address] [place] [address] Jan, [facility] [address] [id number] [address] [place] [address] 10 Jan, 2017 Mild intellectual disability F70 ; Bipolar disorder, unspecified F31.9 and Intermittent explosive disorder in adult F63.81 [facility] [address] [id number] [address] [place] [address] 02 Jan, [address] [facility] [address] [id number] [address] [place] [address] [id number] 13 Dec, 2016 Encounter for dental examina tion and cleaning without abnormal findings Z01.20 [facility] [address] [id number] [address] [place] [phone] 12 Dec, 2016 Bipolar disorder, unspecifie d F31.9 ; Intermittent explosive disorder in adult F63.81 and Mild intellectual disability F70 [facility] [address] [id number] [address] [place] [address] Nov, Diabetes E11.9 [facility] [address] [id number] [address] [place] [address] Nov, [facility] [address] [id number] [address] [place] [address] Nov, Diabetes E11.9 and Colon can cer screening Z12.[address] [id number] [id number] Sep, Dental examination Z01.20 [facility] [address] [id number] [address] [place] [address] [id number] Sep, Encounter for dental examina tion and cleaning without abnormal findings Z01.20 [facility] [address] [facility] [id number] [address] [place] [id number] 13 Sep, 2016 Bipolar disorder, unspecifie d F31.9 [facility] [address] [facility] [id number] [address] [place] [phone] 12 Sep, 2016 Bipolar disorder, unspecifie d F31.9 [facility] [address] [facility] [id number] [address] [place] [address] Jul, [facility] [address] [facility] [id number] [address] [place] [phone] Jul, Type 2 diabetes mellitus wit h complication E11.8 [facility] [id number] [place] [address] [id number] 15 Jun, 2016 Encounter for dental examina tion and cleaning without abnormal findings Z01.[address] [id number] [place] [address] [id number] Jun, Dental examination Z01.20 [facility] [address] [facility] [id number] [address] [place] [address] Apr, Sports physical Z02.5 [place] [address] [place] [id number] [place] [phone] 14 Mar, 2016 Bipolar disorder, in partial remission, most recent episode manic F31.73 and Intermittent explosive disorder in adult F63.81 [facility] [address] [place] [id number] [address] [place] [phone] 08 Mar, 2016 [facility] [address] [facility] [id number] [address] [place] [phone] 06 Mar, [address] [facility] [address] [place] [id number] [address] [place] [address] [id number] 03 Feb, 2016 Encounter for dental examina tion and cleaning without abnormal findings Z01.20 [facility] [address] [facility] [id number] [address] [place] [address] 22 Dec, 2015 Nocturnal hypoxemia G47.34 a nd Encounter for immunization Z23 [place] [address] [address] [facility] [id number] [address] [place] [phone] 15 Dec, 2015 [facility] [address] [facility] [id number] [address] [place] [address] Dec, [facility] [address] [facility] [id number] [address] [place] [phone] 12 Dec, 2015 Bipolar disorder, unspecifie d F31.9 [facility] [address] [id number] [address] [place] [address] [id number] 13 Oct, 2015 Encounter for dental examina tion and cleaning without abnormal findings Z01.[address] [place] [id number] [place] [address] [id number] 13 Oct, 2015 Dental examination Z01.20 [facility] [address] [place] [id number] [address] [place] [phone] 07 Oct, 2015 Diabetes E11.9 [facility] [address] [id number] 05 Oct, 2015 Diabetes E11.9 ; Reactive ai rway disease, mild intermittent, uncomplicated J45.20 and Tobacco abuse Z72.0 [facility] [address] [place] [id number] [address] [place] [phone] Sep, Bipolar disorder, unspecifie d F31.9 and Depression F32.9 [facility] [address] [place] [id number] [address] [place] [phone] Sep, [facility] [address] [address] August, Tinea pedis of both feet B35 .3 and DM w/o complication type II, uncontrolled E11.65 [facility] [address] [place] [id number] [address] [place] [address] Jul, [facility] [address] [place] [id number] [address] [place] [phone] Jul, [facility] [address] [address] Jul, Obstructive sleep apnea G47. 33 [place] [address] [place] [id number] [address] [place] [address] Jun, Diabetes E11.9 [facility] [address] [address] Jun, [facility] [address] [address] Jun, [facility] [address] [address] Jun, Bipolar disorder, unspecifie d F31.9 and Mental retardation F79 [place] [address] [address] Apr, [place] [address] [address] Feb, Diabetes E11.9 ; Encounter f or immunization Z23 ; Cough R05 and Nicotine abuse Z72.0 [place] [address] [phone] Jan, Bipolar disorder, unspecifie d F31.9 and Diabetes mellitus without mention of complication, type II or unspecified type, uncontrolled 250.02 [place] [address] [address] [place] [id number] [address] [place] [address] Jan, [place] [address] [address] Dec, Reactive airway disease 493. 90 and Enuresis 788.30 [place] [address] [address] Dec, [place] [address] [address] Nov, [place] [address] [place] [id number] [address] [place] [address] Nov, [place] [address] [place] [id number] [address] [place] [address] Nov, Annual physical exam V70.0 ; Urinary incontinence 788.30 ; Diabetes 250.00 and Hypertension 401.9 [facility] [address] [facility] [id number] [address] [place] [address] Oct, Diabetes mellitus without me ntion of complication, type II or unspecified type, uncontrolled 250.02 [facility] [address] [facility] [id number] [address] [place] [phone] Oct, Diabetes mellitus without me ntion of complication, type II or unspecified type, uncontrolled 250.02 [facility] [address] [facility] [id number] [place] [id number] Oct, Diabetes mellitus without me ntion of complication, type II or unspecified type, uncontrolled 250.02 [facility] [address] [place] [id number] [place] [phone] Oct, [facility] [address] [facility] [id number] [address] [place] [phone] Oct, [facility] [address] [facility] [id number] [address] [place] [address] Oct, Bipolar disorder, unspecifie d 296.80 [facility] [address] [id number] [address] [place] [address] [id number] Sep, Dental examination V72.2 [facility] [address] [place] [id number] [address] [place] [address] August, [facility] [address] [id number] [address] [place] [address] [id number] August, Dental examination V72.2 [facility] [address] [facility] [id number] [address] [place] [phone] August, [facility] [address] [facility] [id number] [address] [place] [phone] Jul, [facility] [address] [place] [id number] [address] [place] [phone] 13 Jul, 2014 [facility] [address] [id number] [address] [place] [address], [place] [address] 17 Jun, 2014 [facility] [address] [id number] [address] [place] [address], [place] [address] 17 Jun, 2014 [facility] [address] [id number] [address] [place] [address], [place] [address] 17 Jun, 2014 [facility] [address] [id number] [address] [place] [address], [place] [address] 17 Jun, 2014 [facility] [address] [id number] [address] [place] [address], [place] [address] 23 May, 2014 [facility] [address] [id number] [address] [place] [address], [place] [address] 23 May, 2014 [facility] [address] [id number] [address] [place] [address], [place] [address] 16 May, 2014 [facility] [address] [id number] [address] [place] [address], [place] [address] 16 May, 2014 [facility] [address] [id number] [address] [place] [address], [place] [address] 16 May, 2014 [facility] [address] [id number] [address] [place] [address], [place] [address] 16 May, 2014 [facility] [address] [id number] [address] [place] [address], [place] [address] 16 May, 2014 [facility] [address] [id number] [address] [place] [phone] 16 May, 2014 [facility] [address] [id number] [address] [place] [address], [place] [address] 16 May, 2014 [facility] [address] [id number] [address] [place] [phone] 16 May, 2014 [facility] [address] [id number] [address] [place] [phone] May, [facility] [address] [id number] [address] [place] [address], [place] [address] May, [facility] [address] [id number] [address] [place] [address], [place] [address] May, [facility] [address] [id number] [address] [place] [address], [place] [address] May, [facility] [address] [id number] [address] [place] [address], [place] [address] May, [facility] [address] [id number] [address] [place] [address], [place] [address] Apr, [facility] [address] [id number] [address] [place] [address], [place] [address] Apr, [facility] [address] [id number] [address] [place] [address], [place] [address] Apr, [facility] [address] [id number] [address] [place] [address], [place] [address] Apr, [facility] [address] [id number] [address] [place] [address], [place] [address] Apr, [facility] [address] [id number] [address] [place] [address], [place] [address] Apr, [facility] [address] [id number] [address] [place] [address], [place] [address] Apr, [facility] [address] [id number] [address] [place] [address], [place] [address] Apr, [facility] [address] [id number] [address] [place] [address], [place] [address] Apr, [facility] [address] [id number] [address] [place] [address], [place] [address] Apr, [facility] [address] [id number] [address] [place] [address], [place] [address] Apr, [facility] [address] [id number] [address] [place] [address], [place] [address] 09 Apr, 2014 [facility] [address] [id number] [address] [place] [address], [place] [address] Mar, [facility] [address] [id number] [address] [place] [address], [place] [address] Mar, [facility] [address] [id number] [address] [place] [address], [place] [address] Mar, [facility] [address] [id number] [address] [place] [address], [place] [address] Mar, [facility] [address] [id number] [address] [place] [address], [place] [address] Mar, [facility] [address] [id number] [address] [place] [address], [place] [address] Mar, [facility] [address] [id number] [address] [place] [address], [place] [address] Feb, [facility] [address] [id number] [address] [place] [address], [place] [address] Feb, [facility] [address] [id number] [address] [place] [address], [place] [address] Feb, [facility] [address] [id number] [address] [place] [address], [place] [address] Feb, [facility] [address] [id number] [address] [place] [address], [place] [address] 14 Jan, 2014 [facility] [address] [id number] [address] [place] [address], [place] [address] 14 Jan, 2014 [facility] [address] [id number] [address] [place] [address], [place] [address] 14 Jan, 2014 [facility] [address] [id number] [address] [place] [address], [place] [address] 14 Jan, 2014 [facility] [address] [id number] [address] [place] [address], [place] [address] 22 Dec, 2013 [facility] [address] [id number] [facility] [place] [address] Dec, [facility] [address] [id number] [facility] [place] [address] Dec, [facility] [address] [id number] [facility] [place] [address] Dec, [facility] [address] [id number] [address] [place] [address], [place] [address] Nov, [facility] [address] [id number] [address] [place] [address], [place] [address] Nov, [facility] [address] [id number] [address] [place] [address], [place] [address] Nov, [facility] [address] [id number] [address] [place] [address], [place] [address] Nov, [facility] [address] [id number] [address] [place] [address], [place] [address] Nov, [facility] [address] [id number] [address] [place] [address], [place] [address] Nov, [facility] [address] [id number] [address] [place] [address], [place] [address] Nov, [facility] [address] [id number] [address] [place] [address], [place] [address] Oct, [facility] [address] [id number] [address] [place] [address], [place] [address] Oct, [facility] [address] [id number] [address] [place] [address], [place] [address] Oct, [facility] [address] [id number] [address] [place] [address], [place] [address] Oct, [facility] [address] [id number] [address] [place] [address], [place] [address] Oct, [facility] [address] [id number] [address] [place] [address], [place] [address] Oct, [facility] [address] [id number] [facility] [place] [address] Oct, [facility] [address] [id number] [address] [place] [address], [place] [address] Sep, [facility] [address] [id number] [address] [place] [address], [place] [address] Sep, [facility] [address] [id number] [address] [place] [address], [place] [address] Sep, [facility] [address] [id number] [address] [place] [address], [place] [address] Sep, [facility] [address] [id number] [address] [place] [address], [place] [address] Sep, [facility] [address] [id number] [address] [place] [address], [place] [address] Jul, [facility] [address] [id number] [address] [place] [address], [place] [address] Jul, [facility] [address] [id number] [address] [place] [address], [place] [address] Jul, [facility] [address] [id number] [address] [place] [address], [place] [address] Jul, [facility] [address] [id number] [address] [place] [address], [place] [address] Jul, [facility] [address] [id number] [address] [place] [address], [place] [address] Jul, [facility] [address] [id number] [address] [place] [address], [place] [address] Jul, [facility] [address] [id number] [address] [place] [place] [address], [place] [address] Jul, [facility] [address] [id number] [address] [place] [address], [place] [address] Jul, [facility] [address] [id number] [facility] [place] [address] Jul, [facility] [address] [id number] [facility] [place] [address] Jul, [facility] [address] [id number] [facility] [place] [address] Jul, [facility] [address] [id number] [address] [place] [address], [place] [address] Jun, [facility] [address] [id number] [address] [place] [address], [place] [address] Jun, [facility] [address] [id number] [address] [place] [address], [place] [address] Jun, [facility] [address] [id number] [address] [place] [address], [place] [address] Jun, [facility] [address] [id number] [address] [place] [address], [place] [address] Jun, [facility] [address] [id number] [address] [place] [address], [place] [address] Jun, [facility] [address] [id number] [address] [place] [address], [place] [address] Jun, [facility] [address] [id number] [address] [place] [address], [place] [address] Jun, [facility] [address] [id number] [address] [place] [address], [place] [address] May, [facility] [address] [id number] [address] [place] [address], [place] [address] May, [facility] [address] [id number] [address] [place] [address], [place] [address] May, [facility] [address] [id number] [address] [place] [address], [place] [address] May, [facility] [address] [id number] [address] [place] [address], [place] [address] May, [facility] [address] [id number] [address] [place] [address], [place] [address] May, [facility] [address] [id number] [address] [place] [address], [place] [address] May, [facility] [address] [id number] [address] [place] [address], [place] [address] May, [facility] [address] [id number] [address] [place] [address], [place] [address] Apr, [facility] [address] [id number] [address] [place] [address], [place] [address] Apr, [facility] [address] [id number] [address] [place] [address], [place] [address] Apr, [facility] [address] [id number] [address] [place] [address], [place] [address] Apr, [facility] [address] [id number] [address] [place] [address], [place] [address] Mar, [facility] [address] [id number] [address] [place] [address], [place] [address] Mar, [facility] [address] [id number] [address] [place] [address], [place] [address] Mar, [facility] [address] [id number] [address] [place] [address], [place] [address] Feb, [facility] [address] [id number] [address] [place] [address], [place] [address] Feb, [facility] [address] [id number] [address] [place] [address], [place] [address] Feb, [facility] [address] [id number] [address] [place] [address], [place] [address] Feb, [facility] [address] [id number] [address] [place] [address], [place] [address] Feb, [facility] [address] [id number] [address] [place] [address], [place] [address] Feb, [facility] [address] [id number] [address] [place] [address], [place] [address] Jan, [facility] [address] [id number] [address] [place] [address], [place] [address] Jan, [facility] [address] [id number] [address] [place] [address], [place] [address] Jan, [facility] [address] [id number] [address] [place] [address], [place] [address] Jan, [facility] [address] [id number] [address] [place] [address], [place] [address] Jan, [facility] [address] [id number] [address] [place] [address], [place] [address] Jan, [facility] [address] [id number] [address] [place] [address], [place] [address] Jan, [facility] [address] [id number] [address] [place] [address], [place] [address] 25 Dec, 2012 [facility] [address] [id number] [address] [place] [address], [place] [address] 16 Dec, 2012 [facility] [address] [id number] [address] [place] [address], [place] [address] 10 Dec, 2012 [facility] [address] [id number] [address] [place] [address], [place] [address] 05 Dec, 2012 [facility] [address] [id number] [address] [place] [address], [place] [address] Nov, [facility] [address] [id number] [address] [place] [address], [place] [address] Nov, [facility] [address] [id number] [address] [place] [address], [place] [address] Nov, [facility] [address] [id number] [address] [place] [address], [place] [address] Nov, [facility] [address] [id number] [address] [place] [address], [place] [address] Nov, [facility] [address] [id number] [address] [place] [address], [place] [address] Nov, [facility] [address] [id number] [address] [place] [address], [place] [address] Nov, [facility] [address] [id number] [address] [place] [address], [place] [address] Oct, [facility] [address] [id number] [address] [place] [address], [place] [address] Oct, [facility] [address] [id number] [address] [place] [address], [place] [address] Oct, [facility] [address] [id number] [address] [place] [address], [place] [address] Oct, [facility] [address] [id number] [address] [place] [address], [place] [address] Oct, [facility] [address] [id number] [address] [place] [address], [place] [address] Oct, [facility] [address] [id number] [address] [place] [address], [place] [address] Oct, [facility] [address] [id number] [address] [place] [address], [place] [address] Oct, [facility] [address] [id number] [address] [place] [address], [place] [address] Sep, mananzCHBERTHA PEREZ [address] [id number] [place] [id number] August, [facility] [address] [id number] [address] [place] [address], [place] [address] August, [facility] [address] [id number] [address] [place] [address], [place] [address] Jul, [facility] [address] [id number] [address] [place] [address] [place] [address] 29 Jul, 2012 [facility] [address] [id number] [address] [place] [address], [place] [address] 25 Jul, 2012 [facility] [address] [id number] [address] [place] [address], [place] [address] 22 Jul, 2012 [facility] [address] [id number] [address] [place] [address], [place] [address] 18 Jul, 2012 [facility] [address] [id number] [address] [place] [address], [place] [address] 17 Jul, 2012 [facility] [address] [id number] [address] [place] [address], [place] [address] 16 Jul, 2012 [facility] [address] [id number] [address] [place] [address], [place] [address] Jun, [facility] [address] [id number] [address] [place] [address], [place] [address] 18 Jun, 2012 [facility] [address] [id number] [address] [place] [address], [place] [address] Jun, [facility] [address] [id number] [address] [place] [address], [place] [address] 04 Jun, 2012 [facility] [address] [id number] [address] [place] [address], [place] [address] 04 Jun, 2012 [facility] [address] [id number] [address] [place] [address], [place] [address] 19 May, 2012 [facility] [address] [id number] [address] [place] [address], [place] [address] 18 May, 2012 [facility] [address] [id number] [address] [place] [address], [place] [address] 04 May, 2012 [facility] [address] [id number] [address] [place] [address], [place] [address] 15 Apr, 2012 [facility] [address] [id number] [address] [place] [address], [place] [address] 14 Apr, 2012 [facility] [address] [id number] [address] [place] [address], [place] [address] 07 Apr, 2012 [facility] [address] [id number] [address] [place] [address], [place] [address] Mar, [facility] [address] [id number] [address] [place] [address], [place] [address] Mar, [facility] [address] [id number] [address] [place] [address], [place] [address] Mar, [facility] [address] [id number] [address] [place] [address], [place] [address] Mar, [facility] [address] [id number] [address] [place] [address], [place] [address] Mar, [facility] [address] [id number] [address] [place] [address], [place] [address] Mar, [facility] [address] [id number] [address] [place] [address], [place] [address] Feb, [facility] [address] [id number] [address] [place] [address], [place] [address] Feb, [facility] [address] [id number] [address] [place] [address], [place] [address] Jan, [facility] [address] [id number] [address] [place] [address], [place] [address] Jan, [facility] [address] [id number] [address] [place] [address], [place] [address] Dec, [facility] [address] [id number] [address] [place] [address], [place] [address] Nov, [facility] [address] [id number] [address] [place] [address], [place] [address] Nov, [facility] [address] [id number] [address] [place] [address], [place] [address] Nov, [facility] [address] [id number] [address] [place] [address], [place] [address] Nov, [facility] [address] [id number] [address] [place] [address], [place] [address] Oct, [facility] [address] [id number] [address] [place] [address], [place] [address] Oct, [facility] [address] [id number] [address] [place] [address], [place] [address] Oct, [facility] [address] [id number] [address] [place] [address], [place] [address] Sep, [facility] [address] [id number] [address] [place] [address], [place] [address] Sep, [facility] [address] [id number] [address] [place] [address], [place] [address] Sep, [facility] [address] [id number] [address] [place] [address], [place] [address] August, [facility] [address] [id number] [address] [place] [address], [place] [address] August, [facility] [address] [id number] [address] [place] [address], [place] [address] Jul, [facility] [address] [id number] [address] [place] [address], [place] [address] Jul, [facility] [address] [id number] [address] [place] [address], [place] [address] Jul, [facility] [address] [id number] [address] [place] [address], [place] [address] Jul, [facility] [address] [id number] [address] [place] [address], [place] [address] Jun, [facility] [address] [id number] [address] [place] [address], [place] [address] May, [facility] [address] [id number] [address] [place] [address], [place] [address] Apr, [facility] [address] [id number] [address] [place] [address], [place] [address] 31 Apr, 2011 [facility] [address] [id number] [address] [place] [address], [place] [address] Apr, [facility] [address] [id number] [address] [place] [address], [place] [address] Apr, [facility] [address] [id number] [address] [place] [address], [place] [address] Apr, [facility] [address] [id number] [address] [place] [address], [place] [address] Apr, [facility] [address] [id number] [address] [place] [address], [place] [address] Mar, [facility] [address] [id number] [address] [place] [address], [place] [address] Mar, [facility] [address] [id number] [address] [place] [address], [place] [address] Feb, [facility] [address] [id number] [address] [place] [address], [place] [address] Feb, [facility] [address] [id number] [address] [place] [address], [place] [address] Feb, [facility] [address] [id number] [address] [place] [address], [place] [address] Feb, [facility] [address] [id number] [address] [place] [address], [place] [address] Jan, [facility] [address] [id number] [address] [place] [address], [place] [address] Jan, [facility] [address] [id number] [address] [place] [address], [place] [address] Jan, [facility] [address] [id number] [address] [place] [address], [place] [address] Jan, [facility] [address] [id number] [address] [place] [address], [place] [address] Nov, [facility] [address] [id number] [address] [place] [address], [place] [address] 03 Mar, 2010 [facility] [address] [id number] [address] [place] [address], [place] [address] 02 Mar, 2010 [facility] [address] [id number] [address] [place] [address], [place] [address] 30 Feb, 2010 [facility] [address] [id number] [address] [place] [address], [place] [address] 15 Feb, 2010 [facility] [address] [id number] [address] [place] [address], [place] [address] Jan, [facility] [address] [id number] [address] [place] [address], [place] [address] Jan, [facility] [address] [id number] [address] [place] [address], [place] [address] Sep, [facility] [address] [id number] [address] [place] [id number] 16 May, 2009 [facility] [address] [id number] [address] [place] [address], [place] [address] Apr, [facility] [address] [id number] [address] [place] [id number] Mar, [facility] [address] [id number] [address] [place] [id number] 15 Feb, 2009 [facility] [address] [id number] [address] [place] [id number] 10 Feb, 2009 [facility] [address] [id number] [address] [place] [address], [place] [address] 10 Feb, 2009 [facility] [address] [id number] [address] [place] [id number] 22 Jan, 2009 [facility] [address] [id number] [address] [place] [id number] 13 Jan, 2009 [facility] [address] [id number] [address] [place] [address] 13 Jan, 2009 [facility] [address] [facility] [id number] [address] [place] [id number] 11 Jan, 2009 [facility] [address] [facility] [id number] [address] [place] [id number] August, IMMUNIZATIONS No Known Immunizations SOCIAL HISTORY Never Assessed REASON FOR VISIT 3 month f/u Natty Osorio MA PLAN OF CARE Activity Details Follow Up 3 Months Reason: VITAL SIGNS Height 65 in 2018-01-31 Blood pressure systolic 118 mmHg 2018-01-31 Blood pressure diastolic 66 mmHg 2018-01-31 MEDICATIONS Unknown Medications RESULTS No Results PROCEDURES Procedure Date Ordered Result Body Site DEBRIDE NAIL, 6 OR MORE Jan 31, 2018 INSTRUCTIONS MEDICATIONS ADMINISTERED No Known Medications [...] age 6 Hospitalization History surgery Hospitalization History [facility], tom webber treatment few times for BH
--- NOTE | 2019-09-29 10:59 | Discharge Inst-Simple/Standard ---
Discharge Inst-Standard Patient Instructions/Follow Up Plan of Care/Instructions/FU: 2 weeks Radha Activity as Tolerated: Yes Discharge Diet: Regular Diet AL VIEYRA DO Sep 29, 2019 10:59
--- OUTSIDE RECORDS SUMMARY | 2019-09-29 10:59 | XMS REPORT ---
Author Author Cameron ALANIZ Organization [facility] Address [address] [place] [address] Care Team Providers Care Cane Weigher Name Role Phone JEET ALANIZ Unavailable PROBLEMS Type Condition ICD9-CM Code FSM35-SB Code Onset Dates Condition S tatus SNOMED Code Problem Diabetes E11.9 Active 28990446 Problem Intermittent explosive disorder in adult F63.81 Active 11239696 Problem Bipolar disorder, in partial remission, most rec ent episode manic F31.73 Active 04398136 Problem Neuropathy G62.9 Active 578496219 Problem Other diabetic neurological complication associated with type 2 diabetes mellitus E11.49 Active 934316919 Problem Mild intellectual disability F70 A ctive 76275181 Problem Bipolar disorder, unspecified F31.9 Active 09392827 Problem Gastroesophageal reflux disease without esophagitis K21.9 Active 895332981 Problem Reactive airway disease, mild intermittent, uncomplicated J45.20 Active 029433181 Problem Adjustment disorder, unspecified type F43.20 Active 82008431 Problem Open-angle glaucoma of both eyes, unspecified glaucoma stage, unspecified open-angle glaucoma type H40.10X0 Acti ve 32475746 Problem 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 Active 63820172 Problem Reactive airway disease, unspecified asthma justin rity, uncomplicated J45.909 Active 327508736343 Problem Essential hypertension I10 Active 89797628 Problem Type 2 diabetes mellitus with complication E11.8 Active 33036671 Problem Hypertensive retinopathy of both eyes H35.033 Active 3100812 Problem Intermittent explosive disorder F63.81 Active 29502506 Problem Obstructive sleep apnea G47.33 Active 98784655 Problem Depression F32.9 Active 20765071 ALLERGIES No Information ENCOUNTERS Encounter Location Date Diagnosis [facility] [address] [facility] [id number] [address] [place] [address] Apr, [facility] [address] [facility] [id number] [address] [place] [phone] Jan, [facility] [address] [facility] [id number] [address] [place] [phone] Nov, Type 2 diabetes mellitus wit h complication E11.8 [facility] [address] [facility] [id number] [address] [place] [phone] Nov, [facility] [address] [facility] [id number] [address] [place] [phone] Oct, Intermittent explosive disor salvatore in adult F63.81 ; Bipolar disorder, unspecified F31.9 and Mild intellectual disability F70 [facility] [address] [facility] [id number] [address] [place] [phone] Oct, [facility] [address] [facility] [id number] [address] [place] [address] [id number] Oct, Dental examination Z01.20 [facility] [address] [facility] [id number] [address] [place] [phone] Oct, Onychomycosis B35.1 and Othe r diabetic neurological complication associated with type 2 diabetes mellitus E11.49 [facility] [address] [facility] [id number] [address] [place] [phone] Sep, Type 2 diabetes mellitus wit h complication E11.8 and Colon cancer screening Z12.11 [facility] [address] [facility] [id number] [address] [place] [address] Sep, Type 2 diabetes mellitus wit h complication E11.8 ; Colon cancer screening Z12.11 and Neuropathy G62.9 [facility] [address] [facility] [id number] [address] [place] [phone] August, Diabetes E11.9 [facility] [address] [facility] [id number] [address] [place] [address] [id number] Jul, Dental examination Z01.20 [facility] [address] [facility] [id number] [address] [place] [phone] May, Mild intellectual disability F70 [facility] [address] [facility] [id number] [address] [place] [phone] 07 May, 2017 Mild intellectual disability F70 ; High risk medication use Z79.899 ; Intermittent explosive disorder in adult F63.81 and Bipolar disorder, unspecified F31.9 [facility] [address] [facility] [id number] [address] [place] [id number] 05 May, 2017 [facility] [address] [facility] [id number] [address] [place] [phone] May, [facility] [address] [facility] [id number] [address] [place] [phone] Apr, Type 2 diabetes mellitus wit h complication E11.8 ; Mild intellectual disability F70 ; Gastroesophageal reflux disease without esophagitis K21.9 ; Reactive airway disease, mild intermittent, uncomplicated J45.20 and Tobacco abuse Z72.0 [facility] [address] [facility] [id number] [address] [place] [phone] Apr, High risk medication use Z79 .899 ; Mild intellectual disability F70 ; Intermittent explosive disorder in adult F63.81 and Bipolar disorder, unspecified F31.9 [facility] [address] [place] [id number] [place] [address] [phone] Mar, Encounter for dental exam an d cleaning w/o abnormal findings Z01.20 [facility] [address] [id number] [address] [place] [address] [id number] Mar, Dental examination Z01.20 [facility] [address] [facility] [id number] [address] [place] [phone] Jan, [facility] [address] [facility] [id number] [address] [place] [phone] Jan, [facility] [address] [facility] [id number] [address] [place] [phone] Jan, Mild intellectual disability F70 ; Bipolar disorder, unspecified F31.9 and Intermittent explosive disorder in adult F63.81 [place] [id number] [place] [id number] [address] [place] [phone] 02 Jan, 2017 Diabetes E11.9 [facility] [address] [id number] [address] [place] [address] [id number] 13 Dec, 2016 Encounter for dental examina tion and cleaning without abnormal findings Z01.20 [facility] [address] [id number] [address] [place] [phone] 12 Dec, 2016 Bipolar disorder, unspecifie d F31.9 ; Intermittent explosive disorder in adult F63.81 and Mild intellectual disability F70 [facility] [address] [id number] [address] [place] [phone] Nov, Diabetes E11.9 [facility] [address] [id number] [address] [place] [phone] Nov, [facility] [address] [facility] [id number] [address] [place] [phone] Nov, Diabetes E11.9 and Colon can cer screening Z12.[address] [id number] [place] [address] [id number] Sep, Dental examination Z01.20 [facility] [address] [facility] [id number] [address] [place] [address] [id number] 21 Sep, 2016 Encounter for dental examina tion and cleaning without abnormal findings Z01.20 [facility] [address] [id number] [address] [place] [phone] Sep, Bipolar disorder, unspecifie d F31.9 [facility] [address] [id number] [address] [place] [phone] Sep, Bipolar disorder, unspecifie d F31.9 [facility] [address] [id number] [address] [place] [phone] Jul, [facility] [address] [facility] [id number] [address] [place] [phone] Jul, Type 2 diabetes mellitus wit h complication E11.8 [facility] [address] [id number] [address] [place] [address] [id number] 15 Jun, 2016 Encounter for dental examina tion and cleaning without abnormal findings Z01.20 [facility] [address] [id number] [id number] 15 Jun, 2016 Dental examination Z01.20 [facility] [address] [id number] [address] [place] [phone] 18 Apr, 2016 Sports physical Z02.5 [facility] [address] [id number] [address] [place] [phone] 14 Mar, 2016 Bipolar disorder, in partial remission, most recent episode manic F31.73 and Intermittent explosive disorder in adult F63.81 [facility] [address] [id number] [address] [place] [phone] 08 Mar, 2016 [facility] [address] [facility] [id number] [address] [place] [phone] 06 Mar, 2016 Diabetes E11.9 [facility] [address] [id number] [address] [place] [address] [id number] Feb, Encounter for dental examina tion and cleaning without abnormal findings Z01.20 [facility] [address] [id number] [address] [place] [phone] 22 Dec, 2015 Nocturnal hypoxemia G47.34 a nd Encounter for immunization Z23 [facility] [address] [id number] [address] [place] [phone] 15 Dec, 2015 [facility] [address] [id number] [address] [place] [phone] Dec, [facility] [address] [id number] [address] [place] [phone] Dec, Bipolar disorder, unspecifie d F31.9 [facility] [address] [id number] [address] [place] [address] [id number] Oct, Encounter for dental examina tion and cleaning without abnormal findings Z01.20 [facility] [address] [id number] [id number] Oct, Dental examination Z01.20 [place] [address] [facility] [id number] [address] [place] [phone] Oct, Diabetes E11.9 [place] [address] [facility] [id number] [address] [place] [phone] Oct, Diabetes E11.9 ; Reactive ai rway disease, mild intermittent, uncomplicated J45.20 and Tobacco abuse Z72.0 [place] [address] [place] [id number] [address] [place] [phone] Sep, Bipolar disorder, unspecifie d F31.9 and Depression F32.9 [place] [address] [place] [id number] [address] [place] [phone] Sep, [place] [address] [phone] August, Tinea pedis of both feet B35 .3 and DM w/o complication type II, uncontrolled E11.65 [place] [address] [place] [id number] [address] [place] [phone] Jul, [place] [address] [place] [id number] [address] [place] [phone] Jul, [place] [address] [place] [id number] [address] [place] [phone] Jul, Obstructive sleep apnea G47. 33 [place] [address] [facility] [id number] [address] [place] [phone] Jun, Diabetes E11.9 [place] [address] [facility] [id number] [address] [place] [phone] Jun, [place] [address] [facility] [id number] [address] [place] [phone] Jun, [place] [address] [place] [id number] [address] [place] [phone] Jun, Bipolar disorder, unspecifie d F31.9 and Mental retardation F79 [place] [address] [place] [id number] [address] [place] [phone] Apr, [place] [address] [phone] Feb, Diabetes E11.9 ; Encounter f or immunization Z23 ; Cough R05 and Nicotine abuse Z72.0 [place] [address] [id number] Jan, Bipolar disorder, unspecifie d F31.9 and Diabetes mellitus without mention of complication, type II or unspecified type, uncontrolled 250.02 [place] [address] [id number] Jan, [place] [address] [id number] Dec, Reactive airway disease 493. 90 and Enuresis 788.30 [place] [address] [address] Dec, [place] [address] [phone] Nov, [place] [address] [phone] Nov, [place] [address] [id number] Nov, Annual physical exam V70.0 ; Urinary incontinence 788.30 ; Diabetes 250.00 and Hypertension 401.9 [place] [address] [place] [id number] [address] [place] [phone] Oct, Diabetes mellitus without me ntion of complication, type II or unspecified type, uncontrolled 250.02 [place] [address] [place] [id number] [address] [place] [phone] Oct, Diabetes mellitus without me ntion of complication, type II or unspecified type, uncontrolled 250.02 [place] [address] [place] [address] Oct, Diabetes mellitus without me ntion of complication, type II or unspecified type, uncontrolled 250.02 [facility] [address] [id number] [address] [place] [phone] Oct, [facility] [address] [id number] [address] [place] [phone] Oct, [facility] [address] [id number] [address] [place] [phone] Oct, Bipolar disorder, unspecifie d 296.80 [facility] [address] [id number] [place] [address] [id number] Sep, Dental examination V72.2 [facility] [address] [id number] [address] [place] [phone] August, [facility] [address] [id number] [place] [address] [id number] August, Dental examination V72.2 [facility] [address] [id number] [address] [place] [phone] August, [facility] [address] [id number] [address] [place] [phone] Jul, [facility] [address] [id number] [address] [place] [phone] Jul, [facility] [address] [id number] [address] [place] [phone] Jun, [facility] [address] [id number] [address] [place] [phone] Jun, [facility] [address] [id number] [address] [place] [phone] Jun, [facility] [address] [id number] [address] [place] [phone] Jun, [facility] [address] [id number] [address] [place] [phone] b, 2014 [facility] [place] [facility] [address] [id number] [address] [place] [address], [place] [address] 23 May, 2014 [facility] [place] [facility] [address] [id number] [address] [place] [address], [place] [address] 16 May, 2014 [facility] [place] [facility] [address] [id number] [address] [place] [address], [place] [address] 16 May, 2014 [facility] [place] [facility] [address] [id number] [address] [place] [address], [place] [address] 16 May, 2014 [facility] [place] [facility] [address] [id number] [address] [place] [address], [place] [address] 16 May, 2014 [facility] [place] [facility] [address] [id number] [address] [place] [address], [place] [address] 16 May, 2014 [facility] [place] [facility] [address] [id number] [address] [place] [address], [place] [address] 16 May, 2014 [facility] [place] [facility] [address] [id number] [address] [place] [address], [place] [address] 16 May, 2014 [facility] [place] [facility] [address] [id number] [address] [place] [address], [place] [address] 16 May, 2014 [facility] [place] [facility] [address] [id number] [address] [place] [address], [place] [phone] 16 May, 2014 [facility] [place] [facility] [address] [id number] [address] [place] [address], [place] [address] 16 May, 2014 [facility] [place] [facility] [address] [id number] [address] [place] [address], [place] [address] 16 May, 2014 [facility] [place] [facility] [address] [id number] [address] [place] [address], [place] [address] 16 May, 2014 [facility] [place] [facility] [address] [id number] [address] [place] [address], [place] [address] 16 May, 2014 [facility] [place] [facility] [address] [id number] [address] [place] [address], [place] [address] Apr, [facility] [address] [id number] [address] [place] [address], [place] [address] Apr, [facility] [address] [id number] [address] [place] [address], [place] [address] Apr, [facility] [address] [id number] [address] [place] [address], [place] [address] Apr, [facility] [address] [id number] [address] [place] [address], [place] [address] Apr, [facility] [address] [id number] [address] [place] [address], [place] [address] Apr, [facility] [address] [id number] [address] [place] [address], [place] [address] Apr, [facility] [address] [id number] [address] [place] [address], [place] [address] Apr, [facility] [address] [id number] [address] [place] [address], [place] [address] Apr, [facility] [address] [id number] [address] [place] [address], [place] [address] Apr, [facility] [address] [id number] [address] [place] [address], [place] [address] Apr, [facility] [address] [id number] [address] [place] [address], [place] [address] Apr, [facility] [address] [id number] [address] [place] [address], [place] [address] Mar, [facility] [address] [id number] [address] [place] [address], [place] [address] Mar, [facility] [address] [id number] [address] [place] [address], [place] [address] Mar, [facility] [address] [id number] [address] [place] [address], [place] [address] Mar, [facility] [address] [id number] [address] [place] [address], [place] [address] 10 Mar, 2014 [facility] [place] [facility] [address] [id number] [address] [place] [address], [place] [address] 10 Mar, 2014 [facility] [place] [facility] [address] [id number] [address] [place] [address], [place] [address] Feb, [facility] [place] [facility] [address] [id number] [address] [place] [address], [place] [address] Feb, [facility] [place] [facility] [address] [id number] [address] [place] [address], [place] [address] Feb, [facility] [place] [facility] [address] [id number] [address] [place] [address], [place] [address] Feb, [facility] [place] [facility] [address] [id number] [address] [place] [address], [place] [address] 14 Jan, 2014 [facility] [place] [facility] [address] [id number] [address] [place] [address], [place] [address] 14 Jan, 2014 [facility] [place] [facility] [address] [id number] [address] [place] [address], [place] [address] 14 Jan, 2014 [facility] [place] [facility] [address] [id number] [address] [place] [address], [place] [address] 14 Jan, 2014 [facility] [place] [facility] [address] [id number] [address] [place] [address], [place] [address] 22 Dec, 2013 [facility] [place] [facility] [address] [id number] [address] [place] [address], [place] [address] 22 Dec, 2013 [facility] [place] [facility] [address] [id number] [address] [place] [address], [place] [address] 15 Dec, 2013 [facility] [place] [facility] [address] [id number] [address] [place] [address], [place] [address] 15 Dec, 2013 [facility] [place] [facility] [address] [id number] [address] [place] [address], [place] [address] Nov, [facility] [place] [facility] [address] [id number] [address] [place] [address], [place] [address] 14 Nov, 2013 [facility] [place] [facility] [address] [id number] [facility] [place] [address] Nov, [facility] [address] [id number] [facility] [place] [address] Nov, [facility] [place] [facility] [address] [id number] [facility] [place] [address] Nov, [facility] [place] [facility] [address] [id number] [facility] [place] [address] Nov, [facility] [place] [facility] [address] [id number] [facility] [place] [address] Nov, [facility] [place] [facility] [address] [id number] [address] [place] [address], [place] [address] Oct, [facility] [place] [facility] [address] [id number] [address] [place] [address], [place] [address] Oct, [facility] [address] [id number] [address] [place] [address], [place] [address] Oct, [facility] [address] [id number] [address] [place] [address], [place] [address] Oct, [facility] [address] [id number] [address] [place] [address], [place] [address] Oct, [facility] [address] [id number] [address] [place] [address], [place] [address] Oct, [facility] [address] [id number] [address] [place] [address], [place] [address] Oct, [facility] [address] [id number] [address] [place] [address], [place] [address] Sep, [facility] [address] [id number] [address] [place] [address], [place] [address] Sep, [facility] [address] [id number] [address] [place] [address], [place] [address] Sep, [facility] [address] [id number] [address] [place] [address], [place] [address] Sep, [facility] [address] [id number] [facility] [place] [address] Sep, [facility] [address] [id number] [facility] [place] [address] Jul, [facility] [address] [id number] [address] [place] [address], [place] [address] Jul, [facility] [address] [id number] [address] [place] [address], [place] [address] Jul, [facility] [address] [id number] [address] [place] [address], [place] [address] Jul, [facility] [address] [id number] [address] [place] [address], [place] [address] Jul, [facility] [address] [id number] [address] [place] [address], [place] [address] Jul, [facility] [address] [id number] [address] [place] [address], [place] [address] Jul, [facility] [address] [id number] [address] [place] [address], [place] [address] Jul, [facility] [address] [id number] [address] [place] [address], [place] [address] Jul, [facility] [address] [id number] [address] [place] [address], [place] [address] Jul, [facility] [address] [id number] [address] [place] [address], [place] [address] Jul, [facility] [address] [id number] [address] [place] [address], [place] [address] Jul, [facility] [address] [id number] [address] [place] [address], [place] [address] Jun, [facility] [address] [id number] [address] [place] [address], [place] [address] Jun, [facility] [address] [id number] [facility] [place] [address] Jun, [facility] [address] [id number] [address] [place] [address], [place] [address] Jun, [facility] [address] [id number] [address] [place] [address], [place] [address] Jun, [facility] [address] [id number] [address] [place] [address], [place] [address] Jun, [facility] [address] [id number] [address] [place] [address], [place] [address] Jun, [facility] [address] [id number] [address] [place] [address], [place] [address] Jun, [facility] [address] [id number] [address] [place] [address], [place] [address] May, [facility] [address] [id number] [address] [place] [address], [place] [address] May, [facility] [address] [id number] [address] [place] [address], [place] [address] May, [facility] [address] [id number] [address] [place] [address], [place] [address] May, [facility] [address] [id number] [address] [place] [address], [place] [address] May, [facility] [address] [id number] [address] [place] [address], [place] [address] May, [facility] [address] [id number] [address] [place] [address], [place] [address] May, [facility] [address] [id number] [address] [place] [address], [place] [address] May, [facility] [address] [id number] [address] [place] [address], [place] [address] Apr, [facility] [address] [id number] [address] [place] [address], [place] [address] Apr, [facility] [address] [id number] [address] [place] [address], [place] [address] Apr, [facility] [address] [id number] [address] [place] [address], [place] [address] Apr, [facility] [address] [id number] [address] [place] [address], [place] [address] Mar, [facility] [address] [id number] [address] [place] [address], [place] [address] Mar, [facility] [address] [id number] [address] [place] [address], [place] [address] Mar, [facility] [address] [id number] [address] [place] [address], [place] [address] Feb, [facility] [address] [id number] [address] [place] [address], [place] [address] Feb, [facility] [address] [id number] [address] [place] [address], [place] [address] Feb, [facility] [address] [id number] [address] [place] [address], [place] [address] Feb, [facility] [address] [id number] [address] [place] [address], [place] [address] Feb, [facility] [address] [id number] [address] [place] [address], [place] [address] Feb, [facility] [address] [id number] [address] [place] [address], [place] [address] Jan, [facility] [address] [id number] [address] [place] [address], [place] [address] Jan, [facility] [address] [id number] [address] [place] [address], [place] [address] Jan, [facility] [address] [id number] [address] [place] [address], [place] [address] Jan, [facility] [address] [id number] [address] [place] [address], [place] [address] Jan, [facility] [address] [id number] [address] [place] [address], [place] [address] Jan, [facility] [address] [id number] [address] [place] [address], [place] [address] Jan, [facility] [address] [id number] [address] [place] [address], [place] [address] Dec, [facility] [address] [id number] [address] [place] [address], [place] [address] 16 Dec, 2012 [facility] [address] [id number] [address] [place] [address], [place] [address] Dec, [facility] [address] [id number] [address] [place] [address], [place] [address] Dec, [facility] [address] [id number] [address] [place] [address], [place] [address] Nov, [facility] [address] [id number] [address] [place] [address], [place] [address] Nov, [facility] [address] [id number] [address] [place] [address], [place] [address] Nov, [facility] [address] [id number] [address] [place] [address], [place] [address] Nov, [facility] [address] [id number] [address] [place] [address], [place] [address] Nov, [facility] [address] [id number] [address] [place] [address], [place] [address] Nov, [facility] [address] [id number] [address] [place] [address], [place] [address] Nov, [facility] [address] [id number] [address] [place] [address], [place] [address] Oct, [facility] [address] [id number] [address] [place] [address], [place] [address] Oct, [facility] [address] [id number] [address] [place] [address], [place] [address] Oct, [facility] [address] [id number] [address] [place] [address], [place] [address] Oct, [facility] [address] [id number] [address] [place] [address], [place] [address] Oct, [facility] [address] [id number] [address] [place] [address], [place] [address] Oct, [facility] [address] [id number] [address] [place] [address], [place] [address] Oct, [facility] [address] [id number] [address] [place] [address], [place] [address] Oct, [facility] [address] [id number] [address] [place] [address], [place] [address] Sep, [facility] [id number] [place] [id number] August, [facility] [address] [id number] [address] [place] [address], [place] [address] August, [facility] [address] [id number] [address] [place] [address], [place] [address] Jul, [facility] [address] [id number] [address] [place] [address], [place] [address] Jul, [facility] [address] [id number] [address] [place] [address], [place] [address] Jul, [facility] [address] [id number] [address] [place] [address], [place] [address] Jul, [facility] [address] [id number] [address] [place] [address], [place] [address] Jul, [facility] [address] [id number] [address] [place] [address], [place] [address] Jul, [facility] [address] [id number] [address] [place] [address], [place] [address] 16 Jul, 2012 [facility] [address] [id number] [address] [place] [address], [place] [address] Jun, [facility] [address] [id number] [address] [place] [address], [place] [address] 18 Jun, 2012 [facility] [address] [id number] [address] [place] [address], [place] [address] Jun, [facility] [address] [id number] [address] [place] [address], [place] [address] 04 Jun, 2012 [facility] [address] [id number] [address] [place] [address], [place] [address] 04 Jun, 2012 [facility] [address] [id number] [address] [place] [address], [place] [address] 19 May, 2012 [facility] [address] [id number] [address] [place] [address], [place] [address] 18 May, 2012 [facility] [address] [id number] [address] [place] [address], [place] [address] 04 May, 2012 [facility] [address] [id number] [address] [place] [address], [place] [address] 15 Apr, 2012 [facility] [address] [id number] [address] [place] [address], [place] [address] 14 Apr, 2012 [facility] [address] [id number] [address] [place] [address], [place] [address] 07 Apr, 2012 [facility] [address] [id number] [address] [place] [address], [place] [address] Mar, [facility] [address] [id number] [address] [place] [address], [place] [address] Mar, [facility] [address] [id number] [address] [place] [address], [place] [address] 13 Mar, 2012 [facility] [address] [id number] [address] [place] [address], [place] [address] Mar, [facility] [address] [id number] [address] [place] [address], [place] [address] Mar, [facility] [address] [id number] [address] [place] [address], [place] [address] Mar, [facility] [address] [id number] [address] [place] [address], [place] [address] Feb, [facility] [address] [id number] [address] [place] [address], [place] [address] Feb, [facility] [address] [id number] [address] [place] [address], [place] [address] Jan, [facility] [address] [id number] [address] [place] [address], [place] [address] Jan, [facility] [address] [id number] [address] [place] [address], [place] [address] Dec, [facility] [address] [id number] [address] [place] [address], [place] [address] Nov, [facility] [address] [id number] [address] [place] [address], [place] [address] Nov, [facility] [address] [id number] [address] [place] [address], [place] [address] Nov, [facility] [address] [id number] [address] [place] [address], [place] [address] Nov, [facility] [address] [id number] [address] [place] [address], [place] [address] Oct, [facility] [address] [id number] [address] [place] [address], [place] [address] Oct, [facility] [address] [id number] [address] [place] [address], [place] [address] Oct, [facility] [address] [id number] [address] [place] [address], [place] [address] Sep, [facility] [address] [id number] [address] [place] [address], [place] [address] 14 Sep, 2011 [facility] [address] [id number] [address] [place] [address], [place] [address] Sep, [facility] [address] [id number] [address] [place] [address], [place] [address] August, [facility] [address] [id number] [address] [place] [address], [place] [address] August, [facility] [address] [id number] [address] [place] [address], [place] [address] Jul, [facility] [address] [id number] [address] [place] [address], [place] [address] Jul, [facility] [address] [id number] [address] [place] [address], [place] [address] Jul, [facility] [address] [id number] [address] [place] [address], [place] [address] Jul, [facility] [address] [id number] [address] [place] [address], [place] [address] Jun, [facility] [address] [id number] [address] [place] [address], [place] [address] May, [facility] [address] [id number] [address] [place] [address], [place] [address] Apr, [facility] [address] [id number] [address] [place] [address], [place] [address] Apr, [facility] [address] [id number] [address] [place] [address], [place] [address] Apr, [facility] [address] [id number] [address] [place] [address], [place] [address] Apr, [facility] [address] [id number] [address] [place] [address], [place] [address] Apr, [facility] [address] [id number] [address] [place] [address], [place] [address] Apr, [facility] [address] [id number] [address] [place] [address], [place] [address] Mar, [facility] [address] [id number] [address] [place] [address], [place] [address] Mar, [facility] [address] [id number] [address] [place] [address], [place] [address] 29 Feb, 2011 [facility] [address] [id number] [address] [place] [address], [place] [address] Feb, [facility] [address] [id number] [address] [place] [address], [place] [address] Feb, [facility] [address] [id number] [address] [place] [address], [place] [address] Feb, [facility] [address] [id number] [address] [place] [address], [place] [address] Jan, [facility] [address] [id number] [address] [place] [address], [place] [address] Jan, [facility] [address] [id number] [address] [place] [address], [place] [address] Jan, [facility] [address] [id number] [address] [place] [address], [place] [address] Jan, [facility] [address] [id number] [address] [place] [address], [place] [address] Nov, [facility] [address] [id number] [address] [place] [address], [place] [address] Mar, [facility] [address] [id number] [address] [place] [address], [place] [address] Mar, [facility] [address] [id number] [address] [place] [address], [place] [address] 30 Feb, 2010 [facility] [address] [id number] [address] [place] [address], [place] [address] 15 Feb, 2010 [facility] [address] [id number] [address] [place] [address], [place] [address] 19 Jan, 2010 [facility] [address] [id number] [address] [place] [address] Jan, [facility] [address] [id number] [address] [place] [address] Sep, [facility] [address] [id number] [address] [place] [id number] 16 May, 2009 [facility] [address] [id number] [address] [place] [address] Apr, [facility] [address] [id number] [address] [place] [address] Mar, [facility] [address] [id number] [address] [place] [id number] Feb, [facility] [address] [id number] [address] [place] [id number] Feb, [facility] [address] [id number] [address] [place] [address] Feb, [facility] [address] [id number] [address] [place] [address] Jan, [facility] [address] [id number] [address] [place] [id number] Jan, [facility] [address] [id number] [address] [place] [id number] Jan, [facility] [address] [id number] [address] [place] [id number] Jan, [facility] [address] [id number] [address] [place] [id number] August, IMMUNIZATIONS No Known Immunizations SOCIAL HISTORY Never Assessed REASON FOR VISIT eye exam PLAN OF CARE VITAL SIGNS MEDICATIONS Unknown [...] age 6 Hospitalization History surgery Hospitalization History [facility], tonsil hospital treatment few times for BH
--- OUTSIDE RECORDS SUMMARY | 2019-09-29 10:59 | XMS REPORT ---
Author Author Cameron ALANIZ Organization [facility] Address [address] [place] [address] Care Team Providers Care Lecturer In Marketing Name Role Phone JEET ALANIZ Unavailable PROBLEMS Type Condition ICD9-CM Code SGP14-SH Code Onset Dates Condition S tatus SNOMED Code Problem Diabetes E11.9 Active 09564716 Problem Intermittent explosive disorder in adult F63.81 Active 56118276 Problem Bipolar disorder, in partial remission, most rec ent episode manic F31.73 Active 54631097 Problem Neuropathy G62.9 Active 992578187 Problem Other diabetic neurological complication associated with type 2 diabetes mellitus E11.49 Active 284983271 Problem Mild intellectual disability F70 A ctive 45424628 Problem Bipolar disorder, unspecified F31.9 Active 28815522 Problem Gastroesophageal reflux disease without esophagitis K21.9 Active 940986627 Problem Reactive airway disease, mild intermittent, uncomplicated J45.20 Active 067216080 Problem Adjustment disorder, unspecified type F43.20 Active 89812266 Problem Open-angle glaucoma of both eyes, unspecified glaucoma stage, unspecified open-angle glaucoma type H40.10X0 Acti ve 11877230 Problem 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 Active 21316275 Problem Reactive airway disease, unspecified asthma justin rity, uncomplicated J45.909 Active 296745902628 Problem Essential hypertension I10 Active 40044578 Problem Type 2 diabetes mellitus with complication E11.8 Active 37110221 Problem Hypertensive retinopathy of both eyes H35.033 Active 1595998 Problem Intermittent explosive disorder F63.81 Active 29423793 Problem Obstructive sleep apnea G47.33 Active 88410280 Problem Depression F32.9 Active 55456797 ALLERGIES No Information ENCOUNTERS Encounter Location Date Diagnosis [facility] [address] [facility] [id number] [address] [place] [address] Apr, [facility] [address] [facility] [id number] [address] [place] [address] Apr, [facility] [address] [facility] [id number] [address] [place] [address] Jan, Encounter for immunization Z 23 [facility] [address] [facility] [id number] [address] [place] [address] Jan, Tinea pedis of both feet B35 .3 ; Other diabetic neurological complication associated with type 2 diabetes mellitus E11.49 and Onychomycosis B35.1 [facility] [address] [facility] [id number] [address] [place] [address] Nov, Type 2 diabetes mellitus wit h complication E11.8 [facility] [address] [facility] [id number] [address] [place] [phone] Nov, [facility] [address] [facility] [id number] [address] [place] [address] Oct, Intermittent explosive disor aslvatore in adult F63.81 ; Bipolar disorder, unspecified F31.9 and Mild intellectual disability F70 [facility] [address] [facility] [id number] [address] [place] [address] Oct, [facility] [address] [facility] [id number] [address] [place] [phone] Oct, Dental examination Z01.20 [facility] [address] [facility] [id number] [address] [place] [address] Oct, Onychomycosis B35.1 and Othe r diabetic neurological complication associated with type 2 diabetes mellitus E11.49 [facility] [address] [facility] [id number] [address] [place] [address] Sep, Type 2 diabetes mellitus wit h complication E11.8 and Colon cancer screening Z12.11 [facility] [address] [facility] [id number] [address] [place] [address] Sep, Type 2 diabetes mellitus wit h complication E11.8 ; Colon cancer screening Z12.11 and Neuropathy G62.9 [place] [id number] [facility] [id number] [address] [place] [address] August, Diabetes E11.9 [facility] [address] [facility] [id number] [address] [place] [address] [id number] Jul, Dental examination Z01.20 [facility] [address] [facility] [id number] [address] [place] [phone] May, Mild intellectual disability F70 [facility] [address] [facility] [id number] [address] [place] [address] May, Mild intellectual disability F70 ; High risk medication use Z79.899 ; Intermittent explosive disorder in adult F63.81 and Bipolar disorder, unspecified F31.9 [facility] [address] [facility] [id number] [address] [place] [address] May, [facility] [address] [facility] [id number] [address] [place] [address] May, [facility] [address] [facility] [id number] [address] [place] [address] Apr, Type 2 diabetes mellitus wit h complication E11.8 ; Mild intellectual disability F70 ; Gastroesophageal reflux disease without esophagitis K21.9 ; Reactive airway disease, mild intermittent, uncomplicated J45.20 and Tobacco abuse Z72.0 [facility] [address] [facility] [id number] [address] [place] [address] Apr, High risk medication use Z79 .899 ; Mild intellectual disability F70 ; Intermittent explosive disorder in adult F63.81 and Bipolar disorder, unspecified F31.9 [facility] [address] [id number] [address] [place] [address] [phone] Mar, Encounter for dental exam an d cleaning w/o abnormal findings Z01.20 [facility] [address] [id number] [address] [place] [address] [phone] Mar, Dental examination Z01.20 [facility] [address] [facility] [id number] [address] [place] [address] Jan, [facility] [address] [id number] [address] [place] [address] Jan, [facility] [address] [id number] [address] [place] [address] 10 Jan, 2017 Mild intellectual disability F70 ; Bipolar disorder, unspecified F31.9 and Intermittent explosive disorder in adult F63.81 [facility] [address] [id number] [address] [place] [phone] 02 Jan, 2017 Diabetes E11.9 [facility] [address] [id number] [address] [place] [address] [id number] 13 Dec, 2016 Encounter for dental examina tion and cleaning without abnormal findings Z01.20 [facility] [address] [id number] [address] [place] [phone] 12 Dec, 2016 Bipolar disorder, unspecifie d F31.9 ; Intermittent explosive disorder in adult F63.81 and Mild intellectual disability F70 [facility] [address] [id number] [address] [place] [address] Nov, Diabetes E11.9 [facility] [address] [id number] [address] [place] [address] Nov, [facility] [address] [id number] [address] [place] [address] Nov, Diabetes E11.9 and Colon can cer screening Z12.[id number] [place] [address] [id number] Sep, Dental examination Z01.20 [facility] [address] [id number] [address] [place] [address] [id number] 21 Sep, 2016 Encounter for dental examina tion and cleaning without abnormal findings Z01.20 [facility] [address] [id number] [address] [place] [id number] 13 Sep, 2016 Bipolar disorder, unspecifie d F31.9 [facility] [address] [id number] [address] [place] [address] Sep, Bipolar disorder, unspecifie d F31.9 [facility] [address] [facility] [id number] [address] [place] [phone] Jul, [facility] [address] [facility] [id number] [address] [place] [phone] 13 Jul, 2016 Type 2 diabetes mellitus wit h complication E11.8 [facility] [address] [facility] [id number] [address] [place] [address] [id number] 15 Jun, 2016 Encounter for dental examina tion and cleaning without abnormal findings Z01.[address] [id number] [place] [address] [id number] 15 Jun, 2016 Dental examination Z01.20 [facility] [address] [facility] [id number] [address] [place] [phone] 18 Apr, 2016 Sports physical Z02.5 [facility] [address] [facility] [id number] [address] [place] [id number] 14 Mar, 2016 Bipolar disorder, in partial remission, most recent episode manic F31.73 and Intermittent explosive disorder in adult F63.81 [facility] [address] [facility] [id number] [address] [place] [phone] 08 Mar, 2016 [facility] [address] [facility] [id number] [address] [place] [phone] 06 Mar, 2016 Diabetes E11.9 [facility] [address] [id number] [address] [place] [address] [id number] 03 Feb, 2016 Encounter for dental examina tion and cleaning without abnormal findings Z01.20 [facility] [address] [facility] [id number] [address] [place] [phone] 22 Dec, 2015 Nocturnal hypoxemia G47.34 a nd Encounter for immunization Z23 [facility] [address] [facility] [id number] [address] [place] [phone] 15 Dec, 2015 [facility] [address] [facility] [id number] [address] [place] [phone] Dec, [facility] [address] [facility] [id number] [address] [place] [phone] Dec, Bipolar disorder, unspecifie d F31.9 [facility] [address] [id number] [address] [place] [address] [phone] Oct, Encounter for dental examina tion and cleaning without abnormal findings Z01.[address] [place] [address] [id number] [id number] 13 Oct, 2015 Dental examination Z01.20 [facility] [address] [facility] [id number] [address] [place] [phone] 07 Oct, 2015 Diabetes E11.9 [facility] [address] [facility] [id number] [place] [address] Oct, Diabetes E11.9 ; Reactive ai rway disease, mild intermittent, uncomplicated J45.20 and Tobacco abuse Z72.0 [facility] [address] [facility] [id number] [address] [place] [phone] Sep, Bipolar disorder, unspecifie d F31.9 and Depression F32.9 [facility] [address] [facility] [id number] [address] [place] [phone] Sep, [facility] [address] [place] [id number] [address] [place] [phone] August, Tinea pedis of both feet B35 .3 and DM w/o complication type II, uncontrolled E11.65 [facility] [address] [facility] [id number] [address] [place] [phone] Jul, [facility] [address] [facility] [id number] [address] [place] [phone] Jul, [facility] [address] [place] [id number] [place] [phone] Jul, Obstructive sleep apnea G47. 33 [facility] [address] [facility] [id number] [address] [place] [phone] Jun, Diabetes E11.9 [facility] [address] [facility] [id number] [address] [place] [phone] Jun, [facility] [address] [place] [id number] [place] [address] Jun, [facility] [address] [place] [id number] [place] [phone] Jun, Bipolar disorder, unspecifie d F31.9 and Mental retardation F79 [facility] [address] [place] [id number] [place] [address] Apr, [place] [address] [place] [id number] [place] [phone] Feb, Diabetes E11.9 ; Encounter f or immunization Z23 ; Cough R05 and Nicotine abuse Z72.0 [place] [address] [address] Jan, Bipolar disorder, unspecifie d F31.9 and Diabetes mellitus without mention of complication, type II or unspecified type, uncontrolled 250.02 [place] [address] [phone] Jan, [place] [address] [address] Dec, Reactive airway disease 493. 90 and Enuresis 788.30 [place] [address] [address] Dec, [place] [address] [address] Nov, [place] [address] [address] Nov, [place] [address] [address] Nov, Annual physical exam V70.0 ; Urinary incontinence 788.30 ; Diabetes 250.00 and Hypertension 401.9 [place] [address] [place] [address] Oct, Diabetes mellitus without me ntion of complication, type II or unspecified type, uncontrolled 250.02 [facility] [address] [id number] [address] [place] [phone] Oct, Diabetes mellitus without me ntion of complication, type II or unspecified type, uncontrolled 250.02 [facility] [address] [id number] [address] [place] [phone] Oct, Diabetes mellitus without me ntion of complication, type II or unspecified type, uncontrolled 250.02 [facility] [address] [id number] [address] [place] [phone] Oct, [facility] [address] [id number] [address] [place] [phone] Oct, [facility] [address] [id number] [address] [place] [address] Oct, Bipolar disorder, unspecifie d 296.80 [facility] [address] [id number] [address] [place] [address] [id number] Sep, Dental examination V72.2 [facility] [address] [id number] [address] [place] [phone] August, [facility] [address] [id number] [address] [place] [address] [phone] August, Dental examination V72.2 [facility] [address] [id number] [address] [place] [id number] August, [facility] [address] [id number] [address] [place] [phone] Jul, [facility] [address] [id number] [address] [place] [phone] Jul, [facility] [address] [id number] [address] [place] [phone] Jun, [facility] [address] [id number] [address] [place] [phone] 17 Jun, 2014 [facility] [place] [facility] [address] [id number] [address] [place] [address], [place] [address] 17 Jun, 2014 [facility] [place] [facility] [address] [id number] [address] [place] [address], [place] [address] 17 Jun, 2014 [facility] [place] [facility] [address] [id number] [address] [place] [address], [place] [address] 23 May, 2014 [facility] [place] [facility] [address] [id number] [address] [place] [address], [place] [address] 23 May, 2014 [facility] [place] [facility] [address] [id number] [address] [place] [address], [place] [address] 16 May, 2014 [facility] [place] [facility] [address] [id number] [address] [place] [address], [place] [address] 16 May, 2014 [facility] [place] [facility] [address] [id number] [address] [place] [address], [place] [address] 16 May, 2014 [facility] [place] [facility] [address] [id number] [address] [place] [address], [place] [address] 16 May, 2014 [facility] [place] [facility] [address] [id number] [address] [place] [address], [place] [address] 16 May, 2014 [facility] [place] [facility] [address] [id number] [address] [place] [address], [place] [address] 16 May, 2014 [facility] [place] [facility] [address] [id number] [address] [place] [address], [place] [address] 16 May, 2014 [facility] [place] [facility] [address] [id number] [address] [place] [address], [place] [address] 16 May, 2014 [facility] [place] [facility] [address] [id number] [address] [place] [address], [place] [address] 16 May, 2014 [facility] [place] [facility] [address] [id number] [address] [place] [address], [place] [address] 16 May, 2014 [facility] [place] [facility] [address] [id number] [address] [place] [address], [place] [address] May, [facility] [address] [id number] [address] [place] [address], [place] [address] May, [facility] [address] [id number] [address] [place] [address], [place] [address] May, [facility] [address] [id number] [address] [place] [address], [place] [address] Apr, [facility] [address] [id number] [address] [place] [address], [place] [address] Apr, [facility] [address] [id number] [address] [place] [address], [place] [address] Apr, [facility] [address] [id number] [address] [place] [address], [place] [address] Apr, [facility] [address] [id number] [address] [place] [address], [place] [address] Apr, [facility] [address] [id number] [address] [place] [address], [place] [address] Apr, [facility] [address] [id number] [address] [place] [address], [place] [address] Apr, [facility] [address] [id number] [address] [place] [address], [place] [address] Apr, [facility] [address] [id number] [address] [place] [address], [place] [address] Apr, [facility] [place] [facility] [address] [id number] [address] [place] [address], [place] [address] Apr, [facility] [place] [facility] [address] [id number] [address] [place] [address], [place] [address] Apr, [facility] [place] [facility] [address] [id number] [address] [place] [address], [place] [address] Apr, [facility] [place] [facility] [address] [id number] [address] [place] [address], [place] [address] Mar, [facility] [place] [facility] [address] [id number] [address] [place] [address], [place] [address] 10 Mar, 2014 [facility] [address] [id number] [address] [place] [address], [place] [address] Mar, [facility] [address] [id number] [address] [place] [address], [place] [address] Mar, [facility] [address] [id number] [address] [place] [address], [place] [address] Mar, [facility] [address] [id number] [address] [place] [address], [place] [address] Mar, [facility] [address] [id number] [address] [place] [address], [place] [address] Feb, [facility] [address] [id number] [address] [place] [address], [place] [address] Feb, [facility] [address] [id number] [address] [place] [address], [place] [address] Feb, [facility] [address] [id number] [address] [place] [address], [place] [address] Feb, [facility] [address] [id number] [address] [place] [address], [place] [address] 14 Jan, 2014 [facility] [address] [id number] [address] [place] [address], [place] [address] 14 Jan, 2014 [facility] [address] [id number] [address] [place] [address], [place] [address] 14 Jan, 2014 [facility] [address] [id number] [address] [place] [address], [place] [address] 14 Jan, 2014 [facility] [address] [id number] [address] [place] [address], [place] [address] 22 Dec, 2013 [facility] [address] [id number] [address] [place] [address], [place] [address] 22 Dec, 2013 [facility] [address] [id number] [address] [place] [address], [place] [address] Dec, [facility] [address] [id number] [address] [place] [address], [place] [address] Dec, [facility] [address] [id number] [address] [place] [address], [place] [address] Nov, [facility] [address] [id number] [address] [place] [address], [place] [address] Nov, [facility] [address] [id number] [address] [place] [address], [place] [address] Nov, [facility] [address] [id number] [address] [place] [address], [place] [address] Nov, [facility] [address] [id number] [address] [place] [address], [place] [address] Nov, [facility] [address] [id number] [address] [place] [address], [place] [address] Nov, [facility] [address] [id number] [address] [place] [address], [place] [address] Nov, [facility] [address] [id number] [address] [place] [address], [place] [address] Oct, [facility] [address] [id number] [address] [place] [address], [place] [address] Oct, [facility] [address] [id number] [address] [place] [address], [place] [address] Oct, [facility] [address] [id number] [address] [place] [address], [place] [address] Oct, [facility] [address] [id number] [address] [place] [address], [place] [address] Oct, [facility] [address] [id number] [address] [place] [address], [place] [address] Oct, [facility] [address] [id number] [address] [place] [address], [place] [address] Oct, [facility] [address] [id number] [address] [place] [address], [place] [address] Sep, [facility] [address] [id number] [address] [place] [address], [place] [address] 17 Sep, 2013 [facility] [address] [id number] [address] [place] [address], [place] [address] Sep, [facility] [address] [id number] [address] [place] [address], [place] [address] Sep, [facility] [address] [id number] [address] [place] [address], [place] [address] Sep, [facility] [address] [id number] [address] [place] [address], [place] [address] Jul, [facility] [address] [id number] [address] [place] [address], [place] [address] Jul, [facility] [address] [id number] [address] [place] [address], [place] [address] Jul, [facility] [facility] [address] [id number] [address] [place] [address], [place] [address] Jul, [facility] [address] [id number] [address] [place] [address], [place] [address] Jul, [facility] [address] [id number] [address] [place] [address], [place] [address] Jul, [facility] [address] [id number] [address] [place] [address], [place] [address] Jul, [facility] [address] [id number] [address] [place] [address], [place] [address] Jul, [facility] [address] [id number] [address] [place] [address], [place] [address] Jul, [facility] [address] [id number] [address] [place] [address], [place] [address] Jul, [facility] [address] [id number] [address] [place] [address], [place] [address] Jul, [facility] [address] [id number] [address] [place] [address], [place] [address] Jul, [facility] [address] [id number] [address] [place] [address], [place] [address] Jun, [facility] [address] [id number] [facility] [place] [address] Jun, [facility] [address] [id number] [address] [place] [address], [place] [address] Jun, [facility] [address] [id number] [address] [place] [address], [place] [address] Jun, [facility] [address] [id number] [address] [place] [address], [place] [address] Jun, [facility] [address] [id number] [address] [place] [address], [place] [address] Jun, [facility] [address] [id number] [address] [place] [address], [place] [address] Jun, [facility] [address] [id number] [address] [place] [address], [place] [address] Jun, [facility] [address] [id number] [address] [place] [address], [place] [address] May, [facility] [address] [id number] [address] [place] [address], [place] [address] May, [facility] [address] [id number] [address] [place] [address], [place] [address] May, [facility] [address] [id number] [address] [place] [address], [place] [address] May, [facility] [address] [id number] [address] [place] [address], [place] [address] May, [facility] [address] [id number] [address] [place] [address], [place] [address] May, [facility] [address] [id number] [address] [place] [address], [place] [address] May, [facility] [address] [id number] [address] [place] [address], [place] [address] May, [facility] [address] [id number] [address] [place] [address], [place] [address] Apr, [facility] [address] [id number] [address] [place] [address], [place] [address] Apr, [facility] [address] [id number] [address] [place] [address], [place] [address] Apr, [facility] [address] [id number] [address] [place] [address], [place] [address] Apr, [facility] [address] [id number] [address] [place] [address], [place] [address] Mar, [facility] [address] [id number] [address] [place] [address], [place] [address] Mar, [facility] [address] [id number] [address] [place] [address], [place] [address] Mar, [facility] [address] [id number] [address] [place] [address], [place] [address] Feb, [facility] [address] [id number] [address] [place] [address], [place] [address] Feb, [facility] [address] [id number] [address] [place] [address], [place] [address] Feb, [facility] [address] [id number] [address] [place] [address], [place] [address] Feb, [facility] [address] [id number] [address] [place] [address], [place] [address] Feb, [facility] [address] [id number] [address] [place] [address], [place] [address] Feb, [facility] [address] [id number] [address] [place] [address], [place] [address] Jan, [facility] [address] [id number] [address] [place] [address], [place] [address] Jan, [facility] [address] [id number] [address] [place] [address], [place] [address] Jan, [facility] [address] [id number] [address] [place] [address], [place] [address] Jan, [facility] [address] [id number] [address] [place] [address], [place] [address] Jan, [facility] [address] [id number] [address] [place] [address], [place] [address] Jan, [facility] [address] [id number] [address] [place] [address], [place] [address] Jan, [facility] [address] [id number] [address] [place] [address], [place] [address] Dec, [facility] [address] [id number] [address] [place] [address], [place] [address] 16 Dec, 2012 [facility] [address] [id number] [address] [place] [address], [place] [address] Dec, [facility] [address] [id number] [address] [place] [address], [place] [address] 05 Dec, 2012 [facility] [address] [id number] [address] [place] [address], [place] [address] Nov, [facility] [address] [id number] [address] [place] [address], [place] [address] Nov, [facility] [address] [id number] [address] [place] [address], [place] [address] Nov, [facility] [address] [id number] [address] [place] [address], [place] [address] Nov, [facility] [address] [id number] [address] [place] [address], [place] [address] Nov, [facility] [address] [id number] [address] [place] [address], [place] [address] Nov, [facility] [address] [id number] [address] [place] [address], [place] [address] Nov, [facility] [address] [id number] [address] [place] [address], [place] [address] Oct, [facility] [address] [id number] [address] [place] [address], [place] [address] Oct, [facility] [address] [id number] [address] [place] [address], [place] [address] Oct, [facility] [address] [id number] [address] [place] [address], [place] [address] Oct, [facility] [address] [id number] [address] [place] [address], [place] [address] Oct, [facility] [address] [id number] [address] [place] [address], [place] [address] Oct, [facility] [address] [id number] [address] [place] [address], [place] [address] Oct, [facility] [address] [id number] [address] [place] [address], [place] [address] Oct, [facility] [address] [id number] [address] [place] [address], [place] [address] Sep, [facility] [id number] [facility] [id number] [place] [id number] August, [facility] [address] [id number] [address] [place] [address], [place] [address] August, [facility] [address] [id number] [address] [place] [address], [place] [address] Jul, [facility] [address] [id number] [address] [place] [address], [place] [address] Jul, [facility] [address] [id number] [address] [place] [address], [place] [address] Jul, [facility] [address] [id number] [address] [place] [address], [place] [address] 22 Jul, 2012 [facility] [address] [id number] [address] [place] [address], [place] [address] 18 Jul, 2012 [facility] [address] [id number] [address] [place] [address], [place] [address] 17 Jul, 2012 [facility] [address] [id number] [address] [place] [address], [place] [address] 16 Jul, 2012 [facility] [address] [id number] [address] [place] [address], [place] [address] 21 Jun, 2012 [facility] [address] [id number] [address] [place] [address], [place] [address] 18 Jun, 2012 [facility] [address] [id number] [address] [place] [address], [place] [address] 11 Jun, 2012 [facility] [address] [id number] [address] [place] [address], [place] [address] 04 Jun, 2012 [facility] [address] [id number] [address] [place] [address], [place] [address] 04 Jun, 2012 [facility] [address] [id number] [address] [place] [address], [place] [address] 19 May, 2012 [facility] [address] [id number] [address] [place] [address], [place] [address] 18 May, 2012 [facility] [address] [id number] [address] [place] [address], [place] [address] 04 May, 2012 [facility] [address] [id number] [address] [place] [address], [place] [address] 15 Apr, 2012 [facility] [address] [id number] [address] [place] [address], [place] [address] 14 Apr, 2012 [facility] [address] [id number] [address] [place] [address], [place] [address] 07 Apr, 2012 [facility] [address] [id number] [address] [place] [address], [place] [address] Mar, [facility] [address] [id number] [address] [place] [address], [place] [address] Mar, [facility] [address] [id number] [address] [place] [address], [place] [address] Mar, [facility] [address] [id number] [address] [place] [address], [place] [address] Mar, [facility] [address] [id number] [address] [place] [address], [place] [address] Mar, [facility] [address] [id number] [address] [place] [address], [place] [address] Mar, [facility] [address] [id number] [address] [place] [address], [place] [address] Feb, [facility] [address] [id number] [address] [place] [address], [place] [address] Feb, [facility] [address] [id number] [address] [place] [address], [place] [address] Jan, [facility] [address] [id number] [address] [place] [address], [place] [address] Jan, [facility] [address] [id number] [address] [place] [address], [place] [address] Dec, [facility] [address] [id number] [address] [place] [address], [place] [address] Nov, [facility] [address] [id number] [address] [place] [address], [place] [address] Nov, [facility] [address] [id number] [address] [place] [address], [place] [address] Nov, [facility] [address] [id number] [address] [place] [address], [place] [address] Nov, [facility] [address] [id number] [address] [place] [address], [place] [address] Oct, [facility] [address] [id number] [address] [place] [address] [place] [address] 03 Oct, 2011 [facility] [address] [id number] [address] [place] [address], [place] [address] Oct, [facility] [address] [id number] [address] [place] [address], [place] [address] 15 Sep, 2011 [facility] [address] [id number] [address] [place] [address], [place] [address] 14 Sep, 2011 [facility] [address] [id number] [address] [place] [address], [place] [address] Sep, [facility] [address] [id number] [address] [place] [address], [place] [address] August, [facility] [address] [id number] [address] [place] [address], [place] [address] August, [facility] [address] [id number] [address] [place] [address], [place] [address] Jul, [facility] [address] [id number] [address] [place] [address], [place] [address] 24 Jul, 2011 [facility] [address] [id number] [address] [place] [address], [place] [address] 17 Jul, 2011 [facility] [address] [id number] [address] [place] [address], [place] [address] Jul, [facility] [address] [id number] [address] [place] [address], [place] [address] Jun, [facility] [address] [id number] [address] [place] [address], [place] [address] May, [facility] [address] [id number] [address] [place] [address], [place] [address] Apr, [facility] [address] [id number] [address] [place] [address], [place] [address] Apr, [facility] [address] [id number] [address] [place] [address], [place] [address] Apr, [facility] [address] [id number] [address] [place] [address], [place] [address] Apr, [facility] [address] [id number] [address] [place] [address], [place] [address] Apr, [facility] [address] [id number] [address] [place] [address], [place] [address] Apr, [facility] [address] [id number] [address] [place] [address], [place] [address] Mar, [facility] [address] [id number] [address] [place] [address], [place] [address] Mar, [facility] [address] [id number] [address] [place] [address], [place] [address] Feb, [facility] [address] [id number] [address] [place] [address], [place] [address] Feb, [facility] [address] [id number] [address] [place] [address], [place] [address] Feb, [facility] [address] [id number] [address] [place] [address], [place] [address] Feb, [facility] [address] [id number] [address] [place] [address], [place] [address] Jan, [facility] [address] [id number] [address] [place] [address], [place] [address] Jan, [facility] [address] [id number] [address] [place] [address], [place] [address] Jan, [facility] [address] [id number] [address] [place] [address], [place] [address] Jan, [facility] [address] [id number] [address] [place] [address], [place] [address] Nov, [facility] [address] [id number] [address] [place] [address], [place] [address] Mar, [facility] [address] [id number] [address] [place] [address], [place] [address] 02 Mar, 2010 [facility] [address] [id number] [address] [place] [address], [place] [address] 30 Feb, 2010 [facility] [address] [id number] [address] [place] [address] 15 Feb, 2010 [facility] [address] [id number] [address] [place] [address], [place] [address] 19 Jan, 2010 [facility] [address] [id number] [address] [place] [address] 19 Jan, 2010 [facility] [address] [id number] [address] [place] [address], [place] [address] 15 Sep, 2009 [facility] [address] [id number] [address] [place] [address] 16 May, 2009 [facility] [address] [id number] [address] [place] [address] Apr, [facility] [address] [id number] [address] [place] [address] Mar, [facility] [address] [id number] [address] [place] [address] 15 Feb, 2009 [facility] [address] [id number] [address] [place] [address] 10 Feb, 2009 [facility] [address] [id number] [address] [place] [address] 10 Feb, 2009 [facility] [address] [id number] [address] [place] [address] 22 Jan, 2009 [facility] [address] [id number] [address] [place] [id number] 13 Jan, 2009 [facility] [address] [id number] [address] [place] [address] 13 Jan, 2009 [facility] [address] [id number] [address] [place] [address] 11 Jan, 2009 [facility] [address] [id number] [address] [place] [address] August, IMMUNIZATIONS Vaccine Route Administration Date Status FLULAVAL QUAD 0.5ML (6 MO & UP) 2017 IM Intramuscular Feb 08 18 Administered SOCIAL HISTORY Never Assessed REASON FOR VISIT Flu shot PLAN OF CARE VITAL SIGNS MEDICATIONS Unknown Medications RESULTS No Results PROCEDURES Procedure Date Ordered Result Body Site FLULAVAL QUAD 0.5ML (6 MO AND UP) 2017Feb 08, 2018 SINGLE IMMUNIZATION ADMIN Feb 08, 2018 INSTRUCTIONS MEDICATIONS ADMINISTERED No Known Medications [...] age 6 Hospitalization History surgery Hospitalization History [facility], [facility] treatment few times for BH
--- OUTSIDE RECORDS SUMMARY | 2019-09-29 10:59 | XMS REPORT ---
Author Author Cameron ALANIZ Organization [facility] Address [address] [place] [address] Care Team Providers Care Disc Pad Plate Filler Name Role Phone JEET ALANIZ Unavailable PROBLEMS Type Condition ICD9-CM Code HRP69-VZ Code Onset Dates Condition S tatus SNOMED Code Problem Diabetes E11.9 Active 59073835 Problem Intermittent explosive disorder in adult F63.81 Active 16964229 Problem Bipolar disorder, in partial remission, most rec ent episode manic F31.73 Active 53561541 Problem Neuropathy G62.9 Active 846530258 Problem Other diabetic neurological complication associated with type 2 diabetes mellitus E11.49 Active 288206254 Problem Mild intellectual disability F70 A ctive 17159413 Problem Bipolar disorder, unspecified F31.9 Active 44098108 Problem Gastroesophageal reflux disease without esophagitis K21.9 Active 967250172 Problem Reactive airway disease, mild intermittent, uncomplicated J45.20 Active 895496124 Problem Adjustment disorder, unspecified type F43.20 Active 62840875 Problem Open-angle glaucoma of both eyes, unspecified glaucoma stage, unspecified open-angle glaucoma type H40.10X0 Acti ve 00745002 Problem 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 Active 27183551 Problem Reactive airway disease, unspecified asthma justin rity, uncomplicated J45.909 Active 695478692074 Problem Essential hypertension I10 Active 62627417 Problem Type 2 diabetes mellitus with complication E11.8 Active 71387419 Problem Hypertensive retinopathy of both eyes H35.033 Active 7239725 Problem Intermittent explosive disorder F63.81 Active 94897601 Problem Obstructive sleep apnea G47.33 Active 88260512 Problem Depression F32.9 Active 94125283 ALLERGIES No Information ENCOUNTERS Encounter Location Date Diagnosis [facility] [address] [facility] [id number] [address] [place] [address] Apr, [facility] [address] [facility] [place] [id number] [address] [place] [address] Jan, [facility] [address] [facility] [place] [id number] [address] [place] [address] Nov, Type 2 diabetes mellitus wit h complication E11.8 [facility] [address] [facility] [place] [id number] [address] [place] [address] Nov, [facility] [address] [facility] [place] [id number] [address] [place] [address] Oct, Intermittent explosive disor salvatore in adult F63.81 ; Bipolar disorder, unspecified F31.9 and Mild intellectual disability F70 [facility] [address] [facility] [place] [id number] [address] [place] [address] Oct, [facility] [address] [facility] [id number] [address] [place] [id number] Oct, Dental examination Z01.20 [facility] [address] [facility] [place] [id number] [address] [place] [address] Oct, Onychomycosis B35.1 and Othe r diabetic neurological complication associated with type 2 diabetes mellitus E11.49 [facility] [address] [facility] [place] [id number] [address] [place] [address] Sep, Type 2 diabetes mellitus wit h complication E11.8 and Colon cancer screening Z12.11 [facility] [address] [facility] [place] [id number] [address] [place] [address] Sep, Type 2 diabetes mellitus wit h complication E11.8 ; Colon cancer screening Z12.11 and Neuropathy G62.9 [facility] [address] [facility] [place] [id number] [address] [place] [address] August, Diabetes E11.[address] [facility] [address] [facility] [id number] [address] [place] [phone] Jul, Dental examination Z01.20 [facility] [address] [facility] [place] [id number] [address] [place] [address] May, Mild intellectual disability F70 [facility] [address] [facility] [place] [id number] [address] [place] [address] 07 May, 2017 Mild intellectual disability F70 ; High risk medication use Z79.899 ; Intermittent explosive disorder in adult F63.81 and Bipolar disorder, unspecified F31.9 [facility] [address] [facility] [place] [id number] [address] [place] [address] 05 May, 2017 [facility] [address] [facility] [place] [id number] [address] [place] [address] May, [place] [address] [facility] [place] [id number] [address] [place] [address] Apr, Type 2 diabetes mellitus wit h complication E11.8 ; Mild intellectual disability F70 ; Gastroesophageal reflux disease without esophagitis K21.9 ; Reactive airway disease, mild intermittent, uncomplicated J45.20 and Tobacco abuse Z72.0 [place] [address] [place] [id number] [address] [place] [address] Apr, High risk medication use Z79 .899 ; Mild intellectual disability F70 ; Intermittent explosive disorder in adult F63.81 and Bipolar disorder, unspecified F31.[address] [facility] [address] [id number] [address] [place] [address] [phone] Mar, Dental examination Z01.[address] [facility] [address] [id number] [address] [place] [address] [phone] Mar, Encounter for dental exam an d cleaning w/o abnormal findings Z01.20 [facility] [address] [facility] [place] [id number] [address] [place] [id number] 12 Jan, 2017 [facility] [address] [facility] [place] [id number] [address] [place] [address] Jan, [facility] [address] [facility] [place] [id number] [address] [place] [address] Jan, Mild intellectual disability F70 ; Bipolar disorder, unspecified F31.9 and Intermittent explosive disorder in adult F63.81 [facility] [address] [place] [id number] [address] [place] [address] 02 Jan, 2017 Diabetes E11.[address] [facility] [address] [id number] [address] [place] [address] [phone] 13 Dec, 2016 Encounter for dental examina tion and cleaning without abnormal findings Z01.20 [facility] [address] [id number] [address] [place] [address] 12 Dec, 2016 Bipolar disorder, unspecifie d F31.9 ; Intermittent explosive disorder in adult F63.81 and Mild intellectual disability F70 [facility] [address] [id number] [address] [place] [address] Nov, Diabetes E11.9 [facility] [address] [id number] [address] [place] [address] Nov, [facility] [address] [id number] [address] [place] [address] Nov, Diabetes E11.9 and Colon can cer screening Z12.[address] [facility] [id number] [place] [address] [id number] Sep, Dental examination Z01.[address] [facility] [address] [id number] [address] [place] [address] [id number] 21 Sep, 2016 Encounter for dental examina tion and cleaning without abnormal findings Z01.20 [facility] [address] [id number] [address] [place] [id number] Sep, Bipolar disorder, unspecifie d F31.9 [facility] [address] [id number] [address] [place] [address] Sep, Bipolar disorder, unspecifie d F31.9 [facility] [address] [id number] [address] [place] [address] Jul, [facility] [address] [id number] [address] [place] [address] Jul, Type 2 diabetes mellitus wit h complication E11.[address] [facility] [address] [id number] [place] [id number] 15 Jun, 2016 Dental examination Z01.[address] [facility] [address] [id number] [address] [place] [address] [id number] 15 Jun, 2016 Encounter for dental examina tion and cleaning without abnormal findings Z01.20 [facility] [address] [id number] [address] [place] [id number] 18 Apr, 2016 Sports physical Z02.5 [facility] [address] [id number] [address] [place] [id number] 14 Mar, 2016 Bipolar disorder, in partial remission, most recent episode manic F31.73 and Intermittent explosive disorder in adult F63.81 [facility] [address] [facility] [place] [id number] [address] [place] [id number] 08 Mar, 2016 [facility] [address] [facility] [place] [id number] [address] [place] [id number] 06 Mar, 2016 Diabetes E11.[address] [facility] [address] [facility] [id number] [address] [place] [address] [phone] Feb, Encounter for dental examina tion and cleaning without abnormal findings Z01.20 [facility] [address] [id number] [address] [place] [address] 22 Dec, 2015 Nocturnal hypoxemia G47.34 a nd Encounter for immunization Z23 [facility] [address] [id number] [address] [place] [id number] 15 Dec, 2015 [facility] [address] [id number] [address] [place] [phone] Dec, [facility] [address] [id number] [address] [place] [id number] Dec, Bipolar disorder, unspecifie d F31.[address] [facility] [address] [id number] [address] [place] [address] [phone] Oct, Encounter for dental examina tion and cleaning without abnormal findings Z01.20 [facility] [address] [id number] [id number] Oct, Dental examination Z01.20 [place] [address] [facility] [place] [id number] [address] [place] [address] Oct, Diabetes E11.9 [place] [address] [facility] [place] [id number] [address] [place] [address] Oct, Diabetes E11.9 ; Reactive ai rway disease, mild intermittent, uncomplicated J45.20 and Tobacco abuse Z72.0 [place] [address] [place] [id number] [address] [place] [address] Sep, Bipolar disorder, unspecifie d F31.9 and Depression F32.9 [place] [address] [place] [id number] [address] [place] [address] Sep, [place] [address] [address] August, Tinea pedis of both feet B35 .3 and DM w/o complication type II, uncontrolled E11.65 [place] [address] [place] [id number] [address] [place] [phone] Jul, [place] [address] [place] [id number] [address] [place] [id number] Jul, [place] [address] [place] [id number] [address] [place] [address] Jul, Obstructive sleep apnea G47. 33 [place] [address] [facility] [place] [id number] [address] [place] [address] Jun, Diabetes E11.9 [place] [address] [facility] [place] [id number] [address] [place] [address] Jun, [place] [address] [facility] [place] [id number] [address] [place] [id number] Jun, [place] [address] [place] [id number] [address] [place] [address] Jun, Bipolar disorder, unspecifie d F31.9 and Mental retardation F79 [place] [address] [place] [id number] [address] [place] [address] Apr, [place] [address] [address] Feb, Diabetes E11.9 ; Encounter f or immunization Z23 ; Cough R05 and Nicotine abuse Z72.0 [place] [address] [id number] Jan, Bipolar disorder, unspecifie d F31.9 and Diabetes mellitus without mention of complication, type II or unspecified type, uncontrolled 250.02 [place] [address] [address] Jan, [place] [address] [address] Dec, Reactive airway disease 493. 90 and Enuresis 788.30 [place] [address] [address] Dec, [place] [address] [address] Nov, [place] [address] [address] Nov, [place] [address] [address] Nov, Annual physical exam V70.0 ; Urinary incontinence 788.30 ; Diabetes 250.00 and Hypertension 401.9 [place] [address] [place] [id number] [address] [place] [address] Oct, Diabetes mellitus without me ntion of complication, type II or unspecified type, uncontrolled 250.02 [place] [address] [place] [id number] [address] [place] [address] Oct, Diabetes mellitus without me ntion of complication, type II or unspecified type, uncontrolled 250.02 [place] [address] [place] [address] Oct, Diabetes mellitus without me ntion of complication, type II or unspecified type, uncontrolled 250.02 [facility] [address] [id number] [address] [place] [address] Oct, [facility] [address] [id number] [address] [place] [address] Oct, [facility] [address] [id number] [address] [place] [address] Oct, Bipolar disorder, unspecifie d 296.[address] [facility] [address] [id number] [place] [address] [id number] Sep, Dental examination V72.2 [facility] [address] [id number] [address] [place] [address] August, [facility] [address] [id number] [place] [address] [id number] August, Dental examination V72.2 [facility] [address] [id number] [address] [place] [id number] August, [facility] [address] [id number] [address] [place] [phone] Jul, [facility] [address] [id number] [address] [place] [address] Jul, [facility] [address] [id number] [address] [place] [id number] Jun, [facility] [address] [id number] [address] [place] [id number] Jun, [facility] [address] [id number] [address] [place] [address] Jun, [facility] [address] [id number] [address] [place] [address] Jun, [facility] [address] [id number] [address] [place] [address] b, 2014 [facility] [place] [facility] [address] [id number] [address] [place] [address], [place] [address] 23 May, 2014 [facility] [place] [facility] [address] [id number] [address] [place] [address], [place] [address] 16 May, 2014 [facility] [place] [facility] [address] [id number] [address] [place] [address], [place] [address] 16 May, 2014 [facility] [place] [facility] [address] [id number] [address] [place] [address], [place] [address] 16 May, 2014 [facility] [place] [facility] [address] [id number] [address] [place] [address], [place] [address] 16 May, 2014 [facility] [place] [facility] [address] [id number] [address] [place] [address], [place] [address] 16 May, 2014 [facility] [place] [facility] [address] [id number] [address] [place] [address], [place] [address] 16 May, 2014 [facility] [place] [facility] [address] [id number] [address] [place] [address], [place] [address] 16 May, 2014 [facility] [place] [facility] [address] [id number] [address] [place] [address], [place] [address] 16 May, 2014 [facility] [place] [facility] [address] [id number] [address] [place] [address], [place] [address] 16 May, 2014 [facility] [place] [facility] [address] [id number] [address] [place] [address], [place] [address] 16 May, 2014 [facility] [place] [facility] [address] [id number] [address] [place] [address], [place] [address] 16 May, 2014 [facility] [place] [facility] [address] [id number] [address] [place] [address], [place] [address] 16 May, 2014 [facility] [place] [facility] [address] [id number] [address] [place] [address], [place] [address] 16 May, 2014 [facility] [place] [facility] [address] [id number] [address] [place] [address], [place] [address] Apr, [facility] [address] [id number] [address] [place] [address], [place] [address] Apr, [facility] [address] [id number] [address] [place] [address], [place] [address] Apr, [facility] [address] [id number] [address] [place] [address], [place] [address] Apr, [facility] [address] [id number] [address] [place] [address], [place] [address] Apr, [facility] [address] [id number] [address] [place] [address], [place] [address] Apr, [facility] [address] [id number] [address] [place] [address], [place] [address] Apr, [facility] [address] [id number] [address] [place] [address], [place] [address] Apr, [facility] [address] [id number] [address] [place] [address], [place] [address] Apr, [facility] [address] [id number] [address] [place] [address], [place] [address] Apr, [facility] [address] [id number] [address] [place] [address], [place] [address] Apr, [facility] [address] [id number] [address] [place] [address], [place] [address] Apr, [facility] [address] [id number] [address] [place] [address], [place] [address] Mar, [facility] [address] [id number] [address] [place] [address], [place] [address] Mar, [facility] [address] [id number] [address] [place] [address], [place] [address] Mar, [facility] [address] [id number] [address] [place] [address], [place] [address] Mar, [facility] [address] [id number] [address] [place] [address], [place] [address] 10 Mar, 2014 [facility] [place] [facility] [address] [id number] [address] [place] [address], [place] [address] 10 Mar, 2014 [facility] [place] [facility] [address] [id number] [address] [place] [address], [place] [address] Feb, [facility] [place] [facility] [address] [id number] [address] [place] [address], [place] [address] Feb, [facility] [place] [facility] [address] [id number] [address] [place] [address], [place] [address] Feb, [facility] [place] [facility] [address] [id number] [address] [place] [address], [place] [address] Feb, [facility] [place] [facility] [address] [id number] [address] [place] [address], [place] [address] 14 Jan, 2014 [facility] [place] [facility] [address] [id number] [address] [place] [address], [place] [address] 14 Jan, 2014 [facility] [place] [facility] [address] [id number] [address] [place] [address], [place] [address] 14 Jan, 2014 [facility] [place] [facility] [address] [id number] [address] [place] [address], [place] [address] 14 Jan, 2014 [facility] [place] [facility] [address] [id number] [address] [place] [address], [place] [address] 22 Dec, 2013 [facility] [place] [facility] [address] [id number] [address] [place] [address], [place] [address] 22 Dec, 2013 [facility] [place] [facility] [address] [id number] [address] [place] [address], [place] [address] 15 Dec, 2013 [facility] [place] [facility] [address] [id number] [address] [place] [address], [place] [address] 15 Dec, 2013 [facility] [place] [facility] [address] [id number] [address] [place] [address], [place] [address] Nov, [facility] [place] [facility] [address] [id number] [address] [place] [address], [place] [address] 14 Nov, 2013 [facility] [place] [facility] [address] [id number] [facility] [place] [address] Nov, [facility] [address] [id number] [facility] [place] [address] Nov, [facility] [place] [facility] [address] [id number] [facility] [place] [address] Nov, [facility] [place] [facility] [address] [id number] [facility] [address] Nov, [facility] [place] [facility] [address] [id number] [facility] [place] [address] Nov, [facility] [place] [facility] [address] [id number] [address] [place] [address], [place] [address] Oct, [facility] [place] [facility] [address] [id number] [address] [place] [address], [place] [address] Oct, [facility] [place] [facility] [address] [id number] [address] [place] [address], [place] [address] Oct, [facility] [address] [id number] [address] [place] [address], [place] [address] Oct, [facility] [place] [facility] [address] [id number] [address] [place] [address], [place] [address] Oct, [facility] [address] [id number] [address] [place] [address], [place] [address] Oct, [facility] [place] [facility] [address] [id number] [address] [place] [address], [place] [address] Oct, [facility] [place] [facility] [address] [id number] [address] [place] [address], [place] [address] Sep, [facility] [address] [id number] [address] [place] [address], [place] [address] Sep, [facility] [address] [id number] [address] [place] [address], [place] [address] Sep, [facility] [address] [id number] [address] [place] [address], [place] [address] Sep, [facility] [address] [id number] [address] [place] [address] Sep, [facility] [address] [id number] [address] [place] [address] Jul, [facility] [address] [id number] [address] [place] [address], [place] [address] Jul, [facility] [address] [id number] [address] [place] [address], [place] [address] Jul, [facility] [address] [id number] [address] [place] [address], [place] [address] Jul, [facility] [address] [id number] [address] [place] [address], [place] [address] Jul, [facility] [address] [id number] [address] [place] [address], [place] [address] Jul, [facility] [address] [id number] [address] [place] [address], [place] [address] Jul, [facility] [address] [id number] [address] [place] [address], [place] [address] Jul, [facility] [address] [id number] [address] [place] [address], [place] [address] Jul, [facility] [address] [id number] [address] [place] [address], [place] [address] Jul, [facility] [address] [id number] [address] [place] [address], [place] [address] Jul, [facility] [address] [id number] [address] [place] [address], [place] [address] Jul, [facility] [address] [id number] [address] [place] [address], [place] [address] Jun, [facility] [address] [id number] [address] [place] [address], [place] [address] Jun, [facility] [address] [id number] [address] [place] [address] Jun, [facility] [address] [id number] [address] [place] [address], [place] [address] Jun, [facility] [address] [id number] [address] [place] [address], [place] [address] Jun, [facility] [address] [id number] [address] [place] [address], [place] [address] Jun, [facility] [address] [id number] [address] [place] [address], [place] [address] Jun, [facility] [address] [id number] [address] [place] [address], [place] [address] Jun, [facility] [address] [id number] [address] [place] [address], [place] [address] May, [facility] [address] [id number] [address] [place] [address], [place] [address] May, [facility] [address] [id number] [address] [place] [address], [place] [address] May, [facility] [address] [id number] [address] [place] [address], [place] [address] May, [facility] [address] [id number] [address] [place] [address], [place] [address] May, [facility] [address] [id number] [address] [place] [address], [place] [address] May, [facility] [address] [id number] [address] [place] [address], [place] [address] May, [facility] [address] [id number] [address] [place] [address], [place] [address] May, [facility] [address] [id number] [address] [place] [address], [place] [address] Apr, [facility] [address] [id number] [address] [place] [address], [place] [address] Apr, [facility] [address] [id number] [address] [place] [address], [place] [address] Apr, [facility] [address] [id number] [address] [place] [address], [place] [address] Apr, [facility] [address] [id number] [address] [place] [address], [place] [address] Mar, [facility] [address] [id number] [address] [place] [address], [place] [address] Mar, [facility] [address] [id number] [address] [place] [address], [place] [address] Mar, [facility] [address] [id number] [address] [place] [address], [place] [address] Feb, [facility] [address] [id number] [address] [place] [address], [place] [address] Feb, [facility] [address] [id number] [address] [place] [address], [place] [address] Feb, [facility] [address] [id number] [address] [place] [address], [place] [address] Feb, [facility] [address] [id number] [address] [place] [address], [place] [address] Feb, [facility] [address] [id number] [address] [place] [address], [place] [address] Feb, [facility] [address] [id number] [address] [place] [address], [place] [address] Jan, [facility] [address] [id number] [address] [place] [address], [place] [address] Jan, [facility] [address] [id number] [address] [place] [address], [place] [address] Jan, [facility] [address] [id number] [address] [place] [address], [place] [address] Jan, [facility] [address] [id number] [address] [place] [address], [place] [address] Jan, [facility] [address] [id number] [address] [place] [address], [place] [address] Jan, [facility] [address] [id number] [address] [place] [address], [place] [address] Jan, [facility] [address] [id number] [address] [place] [address], [place] [address] Dec, [facility] [address] [id number] [address] [place] [address], [place] [address] 16 Dec, 2012 [facility] [address] [id number] [address] [place] [address], [place] [address] Dec, [facility] [address] [id number] [address] [place] [address], [place] [address] Dec, [facility] [address] [id number] [address] [place] [address], [place] [address] Nov, [facility] [address] [id number] [address] [place] [address], [place] [address] Nov, [facility] [address] [id number] [address] [place] [address], [place] [address] Nov, [facility] [address] [id number] [address] [place] [address], [place] [address] Nov, [facility] [address] [id number] [address] [place] [address], [place] [address] Nov, [facility] [address] [id number] [address] [place] [address], [place] [address] Nov, [facility] [address] [id number] [address] [place] [address], [place] [address] Nov, [facility] [address] [id number] [address] [place] [address], [place] [address] Oct, [facility] [address] [id number] [address] [place] [address], [place] [address] Oct, [facility] [address] [id number] [address] [place] [address], [place] [address] Oct, [facility] [address] [id number] [address] [place] [address], [place] [address] Oct, [facility] [address] [id number] [address] [place] [address], [place] [address] Oct, [facility] [address] [id number] [address] [place] [address], [place] [address] Oct, [facility] [address] [id number] [address] [place] [address], [place] [address] Oct, [facility] [address] [id number] [address] [place] [address], [place] [address] Oct, [facility] [address] [id number] [address] [place] [address], [place] [address] Sep, [facility] [place] [id number] [place] [id number] August, [facility] [address] [id number] [address] [place] [address], [place] [address] August, [facility] [address] [id number] [address] [place] [address], [place] [address] Jul, [facility] [address] [id number] [address] [place] [address], [place] [address] Jul, [facility] [address] [id number] [address] [place] [address], [place] [address] Jul, [facility] [address] [id number] [address] [place] [address], [place] [address] Jul, [facility] [address] [id number] [address] [place] [address], [place] [address] Jul, [facility] [address] [id number] [address] [place] [address], [place] [address] Jul, [facility] [address] [id number] [address] [place] [address], [place] [address] 16 Jul, 2012 [facility] [address] [id number] [address] [place] [address], [place] [address] Jun, [facility] [address] [id number] [address] [place] [address], [place] [address] 18 Jun, 2012 [facility] [address] [id number] [address] [place] [address], [place] [address] Jun, [facility] [address] [id number] [address] [place] [address], [place] [address] 04 Jun, 2012 [facility] [address] [id number] [address] [place] [address], [place] [address] 04 Jun, 2012 [facility] [address] [id number] [address] [place] [address], [place] [address] 19 May, 2012 [facility] [address] [id number] [address] [place] [address], [place] [address] 18 May, 2012 [facility] [address] [id number] [address] [place] [address], [place] [address] 04 May, 2012 [facility] [address] [id number] [address] [place] [address], [place] [address] 15 Apr, 2012 [facility] [address] [id number] [address] [place] [address], [place] [address] 14 Apr, 2012 [facility] [address] [id number] [address] [place] [address], [place] [address] 07 Apr, 2012 [facility] [address] [id number] [address] [place] [address], [place] [address] Mar, [facility] [address] [id number] [address] [place] [address], [place] [address] Mar, [facility] [address] [id number] [address] [place] [address], [place] [address] 13 Mar, 2012 [facility] [address] [id number] [address] [place] [address], [place] [address] Mar, [facility] [address] [id number] [address] [place] [address], [place] [address] Mar, [facility] [address] [id number] [address] [place] [address], [place] [address] Mar, [facility] [address] [id number] [address] [place] [address], [place] [address] Feb, [facility] [address] [id number] [address] [place] [address], [place] [address] Feb, [facility] [address] [id number] [address] [place] [address], [place] [address] Jan, [facility] [address] [id number] [address] [place] [address], [place] [address] Jan, [facility] [address] [id number] [address] [place] [address], [place] [address] Dec, [facility] [address] [id number] [address] [place] [address], [place] [address] Nov, [facility] [address] [id number] [address] [place] [address], [place] [address] Nov, [facility] [address] [id number] [address] [place] [address], [place] [address] Nov, [facility] [address] [id number] [address] [place] [address], [place] [address] Nov, [facility] [address] [id number] [address] [place] [address], [place] [address] Oct, [facility] [address] [id number] [address] [place] [address], [place] [address] Oct, [facility] [address] [id number] [address] [place] [address], [place] [address] Oct, [facility] [address] [id number] [address] [place] [address], [place] [address] Sep, [facility] [address] [id number] [address] [place] [address], [place] [address] 14 Sep, 2011 [facility] [address] [id number] [address] [place] [address], [place] [address] Sep, [facility] [address] [id number] [address] [place] [address], [place] [address] August, [facility] [address] [id number] [address] [place] [address], [place] [address] August, [facility] [address] [id number] [address] [place] [address], [place] [address] Jul, [facility] [address] [id number] [address] [place] [address], [place] [address] Jul, [facility] [address] [id number] [address] [place] [address], [place] [address] Jul, [facility] [address] [id number] [address] [place] [address], [place] [address] Jul, [facility] [address] [id number] [address] [place] [address], [place] [address] Jun, [facility] [address] [id number] [address] [place] [address], [place] [address] May, [facility] [address] [id number] [address] [place] [address], [place] [address] Apr, [facility] [address] [id number] [address] [place] [address], [place] [address] Apr, [facility] [address] [id number] [address] [place] [address], [place] [address] Apr, [facility] [address] [id number] [address] [place] [address], [place] [address] Apr, [facility] [address] [id number] [address] [place] [address], [place] [address] Apr, [facility] [address] [id number] [address] [place] [address], [place] [address] Apr, [facility] [address] [id number] [address] [place] [address], [place] [address] Mar, [facility] [address] [id number] [address] [place] [address], [place] [address] Mar, [facility] [address] [id number] [address] [place] [address], [place] [address] 29 Feb, 2011 [facility] [address] [id number] [address] [place] [address], [place] [address] Feb, [facility] [address] [id number] [address] [place] [address], [place] [address] Feb, [facility] [address] [id number] [address] [place] [address], [place] [address] Feb, [facility] [address] [id number] [address] [place] [address], [place] [address] Jan, [facility] [address] [id number] [address] [place] [address], [place] [address] Jan, [facility] [address] [id number] [address] [place] [address], [place] [address] Jan, [facility] [address] [id number] [address] [place] [address], [place] [address] Jan, [facility] [address] [id number] [address] [place] [address], [place] [address] Nov, [facility] [address] [id number] [address] [place] [address], [place] [address] Mar, [facility] [address] [id number] [address] [place] [address], [place] [address] Mar, [facility] [address] [id number] [address] [place] [address], [place] [address] 30 Feb, 2010 [facility] [address] [id number] [address] [place] [address], [place] [address] 15 Feb, 2010 [facility] [address] [id number] [address] [place] [address], [place] [address] Jan, [facility] [address] [id number] [address] [place] [address] Jan, [facility] [address] [id number] [address] [place] [address] Sep, [facility] [address] [id number] [address] [place] [address] May, [facility] [address] [id number] [address] [place] [address] Apr, [facility] [address] [id number] [address] [place] [address] Mar, [facility] [address] [id number] [address] [place] [address] Feb, [facility] [address] [id number] [address] [place] [address] Feb, [facility] [address] [id number] [address] [place] [address] Feb, [facility] [address] [id number] [address] [place] [address] Jan, [facility] [address] [id number] [address] [place] [address] Jan, [facility] [address] [id number] [address] [place] [address] Jan, [facility] [address] [id number] [address] [place] [address] Jan, [facility] [address] [id number] [address] [place] [address] August, IMMUNIZATIONS No Known Immunizations SOCIAL HISTORY Never Assessed REASON FOR VISIT Refill request PLAN OF CARE VITAL SIGNS MEDICATIONS Medication Instructions Dosage Frequency Start Date End Date Duration S arnel MetFORMIN HCl ER 500 MG Orally 2 times a day 2 tablets with meals 1 2h Sep, 31 days Active RESULTS No Results PROCEDURES No Known [...] History surgery Hospitalization History [facility], [facility] treatment few times for BH
[2019-09-29 11:00] VITALS: BP_SYST 123; BP_DIAS 70; BP_DIAS 71
--- OUTSIDE RECORDS SUMMARY | 2019-09-29 11:00 | XMS REPORT ---
Author Author LETA Cameronsheridan YI Organization [facility] Address [address] [place] [address] Care Team Providers Care Lehr Attendant Name Role Phone SAMANTHALIAM WHITTINGTONA Unavailable PROBLEMS Type Condition ICD9-CM Code [id number] Code Onset Dates Condition S tatus SNOMED Code Problem Diabetes E11.9 Active 03605298 Problem Intermittent explosive disorder in adult F63.81 Active 97008460 Problem Bipolar disorder, in partial remission, most rec ent episode manic F31.73 Active 03659566 Problem Neuropathy G62.9 Active 698550932 Problem Other diabetic neurological complication associated with type 2 diabetes mellitus E11.49 Active 600216469 Problem Mild intellectual disability F70 A ctive 73249131 Problem Bipolar disorder, unspecified F31.9 Active 56229254 Problem Gastroesophageal reflux disease without esophagitis K21.9 Active 623729359 Problem Reactive airway disease, mild intermittent, uncomplicated J45.20 Active 240641322 Problem Adjustment disorder, unspecified type F43.20 Active 35825576 Problem Open-angle glaucoma of both eyes, unspecified glaucoma stage, unspecified open-angle glaucoma type H40.10X0 Acti ve 01248096 Problem 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 Active 41425563 Problem Reactive airway disease, unspecified asthma justin rity, uncomplicated J45.909 Active 451525193775 Problem Essential hypertension I10 Active 32878469 Problem Type 2 diabetes mellitus with complication E11.8 Active 34355753 Problem Hypertensive retinopathy of both eyes H35.033 Active 5641501 Problem Intermittent explosive disorder F63.81 Active 02498027 Problem Obstructive sleep apnea G47.33 Active 31703368 Problem Depression F32.9 Active 37402826 ALLERGIES No Known Allergies ENCOUNTERS Encounter Location Date Diagnosis [facility] [address] [facility] [id number] [address] [place] [address] Apr, [facility] [address] [facility] [id number] [address] [place] [address] Jan, [facility] [address] [facility] [id number] [address] [place] [address] Nov, Type 2 diabetes mellitus wit h complication E11.8 [facility] [address] [facility] [id number] [address] [place] [address] Nov, [facility] [address] [facility] [id number] [address] [place] [address] Oct, Intermittent explosive disor salvatore in adult F63.81 ; Bipolar disorder, unspecified F31.9 and Mild intellectual disability F70 [facility] [address] [facility] [id number] [address] [place] [address] Oct, [facility] [address] [place] [id number] [address] [place] [address] [id number] Oct, Dental examination Z01.20 [facility] [address] [facility] [id number] [address] [place] [address] Oct, Onychomycosis B35.1 and Othe r diabetic neurological complication associated with type 2 diabetes mellitus E11.49 [place] [address] [facility] [id number] [address] [place] [address] Sep, Type 2 diabetes mellitus wit h complication E11.8 and Colon cancer screening Z12.11 [facility] [address] [facility] [id number] [address] [place] [address] Sep, Type 2 diabetes mellitus wit h complication E11.8 ; Colon cancer screening Z12.11 and Neuropathy G62.9 [facility] [address] [facility] [id number] [address] [place] [address] August, Diabetes E11.9 [facility] [address] [facility] [id number] [address] [place] [address] [id number] Jul, Dental examination Z01.20 [facility] [address] [facility] [id number] [address] [place] [address] 27 May, 2017 Mild intellectual disability F70 [facility] [address] [facility] [id number] [address] [place] [address] May, Mild intellectual disability F70 ; High risk medication use Z79.899 ; Intermittent explosive disorder in adult F63.81 and Bipolar disorder, unspecified F31.9 [facility] [address] [facility] [id number] [address] [place] [address] May, [facility] [address] [facility] [id number] [address] [place] [address] May, [facility] [address] [facility] [id number] [address] [place] [address] Apr, Type 2 diabetes mellitus wit h complication E11.8 ; Mild intellectual disability F70 ; Gastroesophageal reflux disease without esophagitis K21.9 ; Reactive airway disease, mild intermittent, uncomplicated J45.20 and Tobacco abuse Z72.0 [facility] [address] [facility] [id number] [address] [place] [address] Apr, High risk medication use Z79 .899 ; Mild intellectual disability F70 ; Intermittent explosive disorder in adult F63.81 and Bipolar disorder, unspecified F31.9 [facility] [id number] [place] [id number] Mar, Encounter for dental exam an d cleaning w/o abnormal findings Z01.20 [facility] [address] [id number] [address] [place] [address] [id number] Mar, Dental examination Z01.20 [facility] [address] [id number] [address] [place] [address] Jan, [facility] [address] [id number] [address] [place] [address] Jan, [facility] [address] [facility] [id number] [address] [place] [address] Jan, Mild intellectual disability F70 ; Bipolar disorder, unspecified F31.9 and Intermittent explosive disorder in adult F63.81 [facility] [address] [facility] [id number] [address] [place] [address] 02 Jan, 2017 Diabetes E11.9 [facility] [address] [id number] [address] [place] [address] [id number] 13 Dec, 2016 Encounter for dental examina tion and cleaning without abnormal findings Z01.20 [facility] [address] [id number] [address] [place] [address] 12 Dec, 2016 Bipolar disorder, unspecifie d F31.9 ; Intermittent explosive disorder in adult F63.81 and Mild intellectual disability F70 [facility] [address] [id number] [address] [place] [address] Nov, Diabetes E11.9 [facility] [address] [id number] [address] [place] [address] Nov, [facility] [address] [id number] [address] [place] [address] Nov, Diabetes E11.9 and Colon can cer screening Z12.[id number] [place] [address] [phone] Sep, Dental examination Z01.20 [facility] [address] [facility] [id number] [address] [place] [address] [id number] 21 Sep, 2016 Encounter for dental examina tion and cleaning without abnormal findings Z01.20 [facility] [address] [id number] [address] [place] [address] Sep, Bipolar disorder, unspecifie d F31.9 [facility] [address] [id number] [address] [place] [address] Sep, Bipolar disorder, unspecifie d F31.9 [facility] [address] [id number] [address] [place] [address] Jul, [facility] [address] [id number] [address] [place] [address] Jul, Type 2 diabetes mellitus wit h complication E11.8 [facility] [address] [id number] [address] [place] [address] [id number] 15 Jun, 2016 Encounter for dental examina tion and cleaning without abnormal findings Z01.20 [facility] [address] [id number] [id number] 15 Jun, 2016 Dental examination Z01.20 [facility] [address] [id number] [address] [place] [address] 18 Apr, 2016 Sports physical Z02.5 [facility] [address] [id number] [address] [place] [address] 14 Mar, 2016 Bipolar disorder, in partial remission, most recent episode manic F31.73 and Intermittent explosive disorder in adult F63.81 [facility] [address] [id number] [address] [place] [address] 08 Mar, 2016 [facility] [address] [facility] [id number] [address] [place] [address] 06 Mar, 2016 Diabetes E11.9 [facility] [address] [id number] [address] [place] [address] [id number] Feb, Encounter for dental examina tion and cleaning without abnormal findings Z01.20 [facility] [address] [id number] [address] [place] [address] 22 Dec, 2015 Nocturnal hypoxemia G47.34 a nd Encounter for immunization Z23 [facility] [address] [id number] [address] [place] [address] 15 Dec, 2015 [facility] [address] [id number] [address] [place] [address] Dec, [facility] [address] [id number] [address] [place] [address] Dec, Bipolar disorder, unspecifie d F31.9 [facility] [address] [id number] [address] [place] [address] [id number] Oct, Encounter for dental examina tion and cleaning without abnormal findings Z01.20 [facility] [id number] [place] [address] [id number] Oct, Dental examination Z01.20 [place] [address] [place] [id number] [address] [place] [address] Oct, Diabetes E11.9 [place] [address] [place] [id number] [address] [place] [address] Oct, Diabetes E11.9 ; Reactive ai rway disease, mild intermittent, uncomplicated J45.20 and Tobacco abuse Z72.0 [place] [address] [address] Sep, Bipolar disorder, unspecifie d F31.9 and Depression F32.9 [place] [address] [address] Sep, [place] [address] [address] August, Tinea pedis of both feet B35 .3 and DM w/o complication type II, uncontrolled E11.65 [place] [address] [place] [id number] [address] [place] [address] Jul, [place] [address] [address] Jul, [place] [address] [address] Jul, Obstructive sleep apnea G47. 33 [place] [address] [place] [id number] [address] [place] [address] Jun, Diabetes E11.9 [place] [address] [facility] [id number] [address] [place] [phone] Jun, [place] [address] [place] [id number] [address] [place] [address] Jun, [place] [address] [place] [id number] [address] [place] [phone] Jun, Bipolar disorder, unspecifie d F31.9 and Mental retardation F79 [place] [address] [address] Apr, [place] [address] [address] Feb, Diabetes E11.9 ; Encounter f or immunization Z23 ; Cough R05 and Nicotine abuse Z72.0 [place] [address] [address] Jan, Bipolar disorder, unspecifie d F31.9 and Diabetes mellitus without mention of complication, type II or unspecified type, uncontrolled 250.02 [place] [address] [address] Jan, [place] [address] [address] Dec, Reactive airway disease 493. 90 and Enuresis 788.30 [place] [address] [address] Dec, [place] [address] [address] Nov, [place] [address] [address] Nov, [place] [address] [address] Nov, Annual physical exam V70.0 ; Urinary incontinence 788.30 ; Diabetes 250.00 and Hypertension 401.9 [place] [address] [place] [id number] [address] [place] [address] Oct, Diabetes mellitus without me ntion of complication, type II or unspecified type, uncontrolled 250.02 [place] [address] [place] [id number] [place] [address] Oct, Diabetes mellitus without me ntion of complication, type II or unspecified type, uncontrolled 250.02 [place] [address] [place] [address] Oct, Diabetes mellitus without me ntion of complication, type II or unspecified type, uncontrolled 250.02 [facility] [address] [id number] [address] [place] [address] Oct, [facility] [address] [id number] [address] [place] [address] Oct, [facility] [address] [id number] [address] [place] [address] Oct, Bipolar disorder, unspecifie d 296.80 [facility] [id number] [place] [address] [id number] Sep, Dental examination V72.2 [facility] [address] [id number] [address] [place] [address] August, [facility] [address] [place] [address] [id number] August, Dental examination V72.2 [facility] [address] [id number] [address] [place] [address] August, [facility] [address] [id number] [address] [place] [address] Jul, [facility] [address] [id number] [address] [place] [address] Jul, [facility] [address] [id number] [address] [place] [address] Jun, [facility] [address] [id number] [address] [place] [address] Jun, [facility] [address] [id number] [address] [place] [address] Jun, [facility] [address] [id number] [address] [place] [address] Jun, [facility] [address] [id number] [address] [place] [address] May, 2014 [facility] [address] [id number] [address] [place] [address], [place] [address] 23 May, 2014 [facility] [address] [id number] [address] [place] [address], [place] [address] 16 May, 2014 [facility] [address] [id number] [address] [place] [address], [place] [address] 16 May, 2014 [facility] [address] [id number] [address] [place] [address], [place] [address] 16 May, 2014 [facility] [address] [id number] [address] [place] [address], [place] [address] 16 May, 2014 [facility] [address] [id number] [address] [place] [address], [place] [address] 16 May, 2014 [facility] [address] [id number] [address] [place] [address], [place] [address] 16 May, 2014 [facility] [address] [id number] [address] [place] [address], [place] [address] 16 May, 2014 [facility] [address] [id number] [address] [place] [address], [place] [address] 16 May, 2014 [facility] [address] [id number] [address] [place] [address], [place] [address] 16 May, 2014 [facility] [address] [id number] [address] [place] [address], [place] [address] 16 May, 2014 [facility] [address] [id number] [address] [place] [address], [place] [address] 16 May, 2014 [facility] [address] [id number] [address] [place] [address], [place] [address] 16 May, 2014 [facility] [address] [id number] [address] [place] [address], [place] [address] 16 May, 2014 [facility] [address] [id number] [address] [place] [address], [place] [address] Apr, [facility] [address] [id number] [address] [place] [address], [place] [address] Apr, [facility] [address] [id number] [address] [place] [address], [place] [address] Apr, [facility] [address] [id number] [address] [place] [address], [place] [address] Apr, [facility] [address] [id number] [address] [place] [address], [place] [address] Apr, [facility] [address] [id number] [address] [place] [address], [place] [address] Apr, [facility] [address] [id number] [address] [place] [address], [place] [address] Apr, [facility] [address] [id number] [address] [place] [address], [place] [address] Apr, [facility] [address] [id number] [address] [place] [address], [place] [address] Apr, [facility] [address] [id number] [address] [place] [address], [place] [address] Apr, [facility] [address] [id number] [address] [place] [address], [place] [address] Apr, [facility] [address] [id number] [address] [place] [address], [place] [address] Apr, [facility] [address] [id number] [address] [place] [address], [place] [address] Mar, [facility] [address] [id number] [address] [place] [address], [place] [address] Mar, [facility] [address] [id number] [address] [place] [address], [place] [address] Mar, [facility] [address] [id number] [address] [place] [address], [place] [address] Mar, [facility] [address] [id number] [address] [place] [address], [place] [address] 10 Mar, 2014 [facility] [address] [id number] [address] [place] [address], [place] [address] 10 Mar, 2014 [facility] [address] [id number] [address] [place] [address], [place] [address] Feb, [facility] [address] [id number] [address] [place] [address], [place] [address] Feb, [facility] [address] [id number] [address] [place] [address], [place] [address] Feb, [facility] [address] [id number] [address] [place] [address], [place] [address] Feb, [facility] [address] [id number] [address] [place] [address], [place] [address] 14 Jan, 2014 [facility] [address] [id number] [address] [place] [address], [place] [address] 14 Jan, 2014 [facility] [address] [id number] [address] [place] [address], [place] [address] 14 Jan, 2014 [facility] [address] [id number] [address] [place] [address], [place] [address] 14 Jan, 2014 [facility] [address] [id number] [address] [place] [address], [place] [address] 22 Dec, 2013 [facility] [address] [id number] [address] [place] [address], [place] [address] 22 Dec, 2013 [facility] [address] [id number] [address] [place] [address], [place] [address] 15 Dec, 2013 [facility] [address] [id number] [address] [place] [address], [place] [address] 15 Dec, 2013 [facility] [address] [id number] [address] [place] [address], [place] [address] Nov, [facility] [address] [id number] [address] [place] [address], [place] [address] Nov, [facility] [address] [id number] [facility] [place] [address] Nov, [facility] [address] [id number] [facility] [place] [address] Nov, [facility] [address] [id number] [address] [place] [address], [place] [address] Nov, [facility] [address] [id number] [address] [place] [address], [place] [address] Nov, [facility] [address] [id number] [address] [place] [address], [place] [address] Nov, [facility] [address] [id number] [address] [place] [address], [place] [address] Oct, [facility] [address] [id number] [address] [place] [address], [place] [address] Oct, [facility] [address] [id number] [address] [place] [address], [place] [address] Oct, [facility] [address] [id number] [address] [place] [address], [place] [address] Oct, [facility] [address] [id number] [address] [place] [address], [place] [address] Oct, [facility] [address] [id number] [address] [place] [address], [place] [address] Oct, [facility] [address] [id number] [address] [place] [address], [place] [address] Oct, [facility] [address] [id number] [address] [place] [address], [place] [address] Sep, [facility] [address] [id number] [address] [place] [address], [place] [address] Sep, [facility] [address] [id number] [address] [place] [address], [place] [address] Sep, [facility] [address] [id number] [address] [place] [address], [place] [address] Sep, [facility] [address] [id number] [address] [place] [address], [place] [address] Sep, [facility] [address] [id number] [address] [place] [address], [place] [address] Jul, [facility] [address] [id number] [address] [place] [address], [place] [address] Jul, [facility] [address] [id number] [address] [place] [address], [place] [address] Jul, [facility] [address] [id number] [address] [place] [address], [place] [address] Jul, [facility] [address] [id number] [address] [place] [address], [place] [address] Jul, [facility] [address] [id number] [address] [place] [address], [place] [address] Jul, [facility] [address] [id number] [address] [place] [address], [place] [address] Jul, [facility] [address] [id number] [address] [place] [address], [place] [address] Jul, [facility] [address] [id number] [address] [place] [address], [place] [address] Jul, [facility] [address] [id number] [address] [place] [address], [place] [address] Jul, [facility] [address] [id number] [address] [place] [address], [place] [address] Jul, [facility] [address] [id number] [address] [place] [address], [place] [address] Jul, [facility] [address] [id number] [address] [place] [address], [place] [address] Jun, [facility] [address] [id number] [address] [place] [address], [place] [address] Jun, [facility] [address] [id number] [address] [place] [address], [place] [address] Jun, [facility] [address] [id number] [address] [place], [place] [address], [place] [address] Jun, [facility] [address] [id number] [address] [place] [address], [place] [address] Jun, [facility] [address] [id number] [address] [place] [address], [place] [address] Jun, [facility] [address] [id number] [address] [place] [address], [place] [address] Jun, [facility] [address] [id number] [address] [place] [address], [place] [address] Jun, [facility] [address] [id number] [address] [place] [address], [place] [address] May, [facility] [address] [id number] [address] [place] [address], [place] [address] May, [facility] [address] [id number] [address] [place] [address], [place] [address] May, [facility] [address] [id number] [address] [place] [address], [place] [address] May, [facility] [address] [id number] [address] [place] [address], [place] [address] May, [facility] [address] [id number] [address] [place] [address], [place] [address] May, [facility] [address] [id number] [address] [place] [address], [place] [address] May, [facility] [address] [id number] [address] [place] [address], [place] [address] May, [facility] [address] [id number] [address] [place] [address], [place] [address] Apr, [facility] [address] [id number] [address] [place] [address], [place] [address] Apr, [facility] [address] [id number] [address] [place] [address], [place] [address] Apr, [facility] [address] [id number] [address] [place] [address], [place] [address] Apr, [facility] [address] [id number] [address] [place] [address], [place] [address] Mar, [facility] [address] [id number] [address] [place] [address], [place] [address] Mar, [facility] [address] [id number] [address] [place] [address], [place] [address] Mar, [facility] [address] [id number] [address] [place] [address], [place] [address] Feb, [facility] [address] [id number] [address] [place] [address], [place] [address] Feb, [facility] [address] [id number] [address] [place] [address], [place] [address] Feb, [facility] [address] [id number] [address] [place] [address], [place] [address] Feb, [facility] [address] [id number] [address] [place] [address], [place] [address] Feb, [facility] [address] [id number] [address] [place] [address], [place] [address] Feb, [facility] [address] [id number] [address] [place] [address], [place] [address] Jan, [facility] [address] [id number] [address] [place] [address], [place] [address] Jan, [facility] [address] [id number] [address] [place] [address], [place] [address] Jan, [facility] [address] [id number] [address] [place] [address], [place] [address] Jan, [facility] [address] [id number] [address] [place] [address], [place] [address] Jan, [facility] [address] [id number] [address] [place] [address], [place] [address] Jan, [facility] [address] [id number] [address] [place] [address], [place] [address] Jan, [facility] [address] [id number] [address] [place] [address], [place] [address] Dec, [facility] [address] [id number] [address] [place] [address], [place] [address] 16 Dec, 2012 [facility] [address] [id number] [address] [place] [address], [place] [address] Dec, [facility] [address] [id number] [address] [place] [address], [place] [address] Dec, [facility] [address] [id number] [address] [place] [address], [place] [address] Nov, [facility] [address] [id number] [address] [place] [address], [place] [address] Nov, [facility] [address] [id number] [address] [place] [address], [place] [address] Nov, [facility] [address] [id number] [address] [place] [address], [place] [address] Nov, [facility] [address] [id number] [address] [place] [address], [place] [address] Nov, [facility] [address] [id number] [address] [place] [address], [place] [address] Nov, [facility] [address] [id number] [address] [place] [address], [place] [address] Nov, [facility] [address] [id number] [address] [place] [address], [place] [address] Oct, [facility] [address] [id number] [address] [place] [address], [place] [address] Oct, [facility] [address] [id number] [address] [place] [address], [place] [address] Oct, [facility] [address] [id number] [address] [place] [address], [place] [address] Oct, [facility] [address] [id number] [address] [place] [address], [place] [address] Oct, [facility] [address] [id number] [address] [place] [address], [place] [address] Oct, [facility] [address] [id number] [address] [place] [address], [place] [address] Oct, [facility] [address] [id number] [address] [place] [address], [place] [address] Oct, [facility] [address] [id number] [address] [place] [address], [place] [address] Sep, Suleiman PEREZ [address] [facility] [id number] [place] [id number] August, [facility] [address] [id number] [address] [place] [address], [place] [address] August, [facility] [address] [id number] [address] [place] [address], [place] [address] Jul, [facility] [address] [id number] [address] [place] [address], [place] [address] Jul, [facility] [address] [id number] [address] [place] [address], [place] [address] Jul, [facility] [address] [id number] [address] [place] [address], [place] [address] Jul, [facility] [address] [id number] [address] [place] [address], [place] [address] Jul, [facility] [address] [id number] [address] [place] [address], [place] [address] Jul, [facility] [address] [id number] [address] [place] [address], [place] [address] 16 Jul, 2012 [facility] [address] [id number] [address] [place] [address], [place] [address] Jun, [facility] [address] [id number] [address] [place] [address], [place] [address] 18 Jun, 2012 [facility] [address] [id number] [address] [place] [address], [place] [address] Jun, [facility] [address] [id number] [address] [place] [address], [place] [address] 04 Jun, 2012 [facility] [address] [id number] [address] [place] [address], [place] [address] 04 Jun, 2012 [facility] [address] [id number] [address] [place] [address], [place] [address] 19 May, 2012 [facility] [address] [id number] [address] [place] [address], [place] [address] 18 May, 2012 [facility] [address] [id number] [address] [place] [address], [place] [address] 04 May, 2012 [facility] [address] [id number] [address] [place] [address], [place] [address] 15 Apr, 2012 [facility] [address] [id number] [address] [place] [address], [place] [address] 14 Apr, 2012 [facility] [address] [id number] [address] [place] [address], [place] [address] Apr, [facility] [address] [id number] [address] [place] [address], [place] [address] Mar, [facility] [address] [id number] [address] [place] [address], [place] [address] Mar, [facility] [address] [id number] [address] [place] [address], [place] [address] 13 Mar, 2012 [facility] [address] [id number] [address] [place] [address], [place] [address] 13 Mar, 2012 [facility] [address] [id number] [address] [place] [address], [place] [address] Mar, [facility] [address] [id number] [address] [place] [address], [place] [address] Mar, [facility] [address] [id number] [address] [place] [address], [place] [address] Feb, [facility] [address] [id number] [address] [place] [address], [place] [address] Feb, [facility] [address] [id number] [address] [place] [address], [place] [address] Jan, [facility] [address] [id number] [address] [place] [address], [place] [address] Jan, [facility] [address] [id number] [address] [place] [address], [place] [address] Dec, [facility] [address] [id number] [address] [place] [address], [place] [address] Nov, [facility] [address] [id number] [address] [place] [address], [place] [address] Nov, [facility] [address] [id number] [address] [place] [address], [place] [address] Nov, [facility] [address] [id number] [address] [place] [address], [place] [address] Nov, [facility] [address] [id number] [address] [place] [address], [place] [address] Oct, [facility] [address] [id number] [address] [place] [address], [place] [address] Oct, [facility] [address] [id number] [address] [place] [address], [place] [address] Oct, [facility] [address] [id number] [address] [place] [address], [place] [address] Sep, [facility] [address] [id number] [address] [place] [address] [address] Sep, [facility] [address] [id number] [address] [place] [address], [place] [address] Sep, [facility] [address] [id number] [address] [place] [address], [place] [address] August, [facility] [address] [id number] [address] [place] [address], [place] [address] August, [facility] [address] [id number] [address] [place] [address], [place] [address] Jul, [facility] [address] [id number] [address] [place] [address], [place] [address] Jul, [facility] [address] [id number] [address] [place] [address], [place] [address] Jul, [facility] [address] [id number] [address] [place] [address], [place] [address] Jul, [facility] [address] [id number] [address] [place] [address], [place] [address] Jun, [facility] [address] [id number] [address] [place] [address], [place] [address] May, [facility] [address] [id number] [address] [place] [address], [place] [address] Apr, [facility] [address] [id number] [address] [place] [address], [place] [address] Apr, [facility] [address] [id number] [address] [place] [address], [place] [address] Apr, [facility] [address] [id number] [address] [place] [address], [place] [address] Apr, [facility] [address] [id number] [address] [place] [address], [place] [address] Apr, [facility] [address] [id number] [address] [place] [address], [place] [address] Apr, [facility] [address] [id number] [address] [place] [address], [place] [address] Mar, [facility] [address] [id number] [address] [place] [address], [place] [address] Mar, [facility] [address] [id number] [address] [place] [address], [place] [address] Feb, [facility] [address] [id number] [address] [place] [address], [place] [address] Feb, [facility] [address] [id number] [address] [place] [address], [place] [address] Feb, [facility] [address] [id number] [address] [place] [address], [place] [address] Feb, [facility] [address] [id number] [address] [place] [address], [place] [address] Jan, [facility] [address] [id number] [address] [place] [address], [place] [address] Jan, [facility] [address] [id number] [address] [place] [address], [place] [address] Jan, [facility] [address] [id number] [address] [place] [address], [place] [address] Jan, [facility] [address] [id number] [address] [place] [address], [place] [address] Nov, [facility] [address] [id number] [address] [place] [address], [place] [address] Mar, [facility] [address] [id number] [address] [place] [address], [place] [address] Mar, [facility] [address] [id number] [address] [place] [address], [place] [address] 30 Feb, 2010 [facility] [address] [id number] [address] [place] [address], [place] [address] 15 Feb, 2010 [facility] [address] [id number] [address] [place] [address], [place] [address] Jan, [facility] [address] [id number] [address] [place] [address] Jan, [facility] [address] [id number] [address] [place] [address] Sep, [facility] [address] [id number] [address] [place] [address] May, [facility] [address] [id number] [address] [place] [address] Apr, [facility] [address] [id number] [address] [place] [address] Mar, [facility] [address] [id number] [address] [place] [address] Feb, [facility] [address] [id number] [address] [place] [address] Feb, [facility] [address] [id number] [address] [place] [address] Feb, [facility] [address] [id number] [address] [place] [address] Jan, [facility] [address] [id number] [address] [place] [address] Jan, [facility] [address] [id number] [address] [place] [address] Jan, [facility] [address] [id number] [address] [place] [address] Jan, [facility] [address] [id number] [address] [place] [address] August, IMMUNIZATIONS No Known Immunizations SOCIAL HISTORY Never Assessed REASON FOR VISIT BH f/u. Pt states he woke up with chest pain last night. No chest pain currentl yAlberto back PLAN OF CARE Activity Details Follow Up Apr Reason: VITAL SIGNS Height 65 in 2017-11-13 Weight 202.5 lbs 2017-11-13 Temperature 99.4 degrees Fahrenheit 2017-11-13 Heart Rate 84 bpm 2017-11-13 Respiratory Rate 24 2017-11-13 BMI 33.69 kg/m2 2017-11-13 Blood pressure systolic 110 mmHg 2017-11-13 Blood pressure diastolic 60 mmHg 2017-11-13 MEDICATIONS Medication Instructions Dosage Frequency Start Date End Date Duration S arnel Tamsulosin HCl 0.4 MG Orally 30 min after meal once a day 2 capsule Active Seroquel 300 MG Orally Once a day 2 tablets every night 24h Active Pioglitazone HCl 15 MG Orally Once a day 1 tablet 24h Active Valsartan-Hydrochlorothiazide 80-12.5 MG Orally Once a day 1 tablet 24h Active Depakote ER 500 MG Orally every night 2 tablet Active Ventolin HFA 108 (90 Base) MCG/ACT Inhalation every 4 hrs 2 puffs a s needed 4h 31 Active Simvastatin 20 MG Orally Once a day 1 tablet at bedtime 24h 31 Active Metoprolol Tartrate 25 MG Orally daily 1 tablet with food 24h Active TRUEtest Test - test blood sugar 12h Nov, Active Quetiapine Fumarate 100 MG Orally every morning 1 tablet Active Metamucil 0.52 GM Orally one time a day 3 caps Active MetFORMIN HCl ER 500 mg Orally 2 in AM and 2 in PM Final dose 1 ta blet Sep, Active Toviaz 8 MG Orally Once a day 1 tablet 24h A ctive Desmopressin Acetate 0.2 MG Orally bedtime 3 tabs Active TRUEplus Lancets 33G - test blood sugar 12h Jan, 30 Active glyburide 2.5 Oral twice a day 0.5 tab 12h A ctive Folic Acid 1 MG take 0.5 tablet by Oral route 1 time per day 31 Active RESULTS No Results PROCEDURES No Known [...] age 6 Hospitalization History surgery Hospitalization History [facility], [facility] treatment few times for BH
--- OUTSIDE RECORDS SUMMARY | 2019-09-29 11:00 | XMS REPORT ---
Author Author Cameron CEJA Organization [facility] Address Unknown Care Team Providers Care Sales Representative Metals Name Role Phone SHANNA CEJA Unavailable PROBLEMS Type Condition ICD9-CM Code NDA11-RX Code Onset Dates Condition S tatus SNOMED Code Problem Diabetes E11.9 Active 85437852 Problem Intermittent explosive disorder in adult F63.81 Active 50657968 Problem Bipolar disorder, in partial remission, most rec ent episode manic F31.73 Active 45977981 Problem Neuropathy G62.9 Active 722379963 Problem Other diabetic neurological complication associated with type 2 diabetes mellitus E11.49 Active 303526848 Problem Mild intellectual disability F70 A ctive 37105216 Problem Bipolar disorder, unspecified F31.9 Active 68723874 Problem Gastroesophageal reflux disease without esophagitis K21.9 Active 950051890 Problem Reactive airway disease, mild intermittent, uncomplicated J45.20 Active 045455828 Problem Adjustment disorder, unspecified type F43.20 Active 87343493 Problem Open-angle glaucoma of both eyes, unspecified glaucoma stage, unspecified open-angle glaucoma type H40.10X0 Acti ve 64693743 Problem 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 Active 44622525 Problem Reactive airway disease, unspecified asthma justin rity, uncomplicated J45.909 Active 082871593236 Problem Essential hypertension I10 Active 02246600 Problem Type 2 diabetes mellitus with complication E11.8 Active 66988578 Problem Hypertensive retinopathy of both eyes H35.033 Active 1047899 Problem Intermittent explosive disorder F63.81 Active 29393323 Problem Obstructive sleep apnea G47.33 Active 76838973 Problem Depression F32.9 Active 27574406 ALLERGIES No Information ENCOUNTERS Encounter Location Date Diagnosis [facility] [address] [facility] [id number] [address] [place] [phone] Apr, [facility] [address] [facility] [id number] [address] [place] [phone] Jan, [facility] [address] [id number] [address] [place] [phone] Nov, Type 2 diabetes mellitus wit h complication E11.8 [facility] [address] [id number] [address] [place] [phone] Nov, [facility] [address] [id number] [address] [place] [phone] Oct, Intermittent explosive disor salvatore in adult F63.81 ; Bipolar disorder, unspecified F31.9 and Mild intellectual disability F70 [facility] [address] [id number] [address] [place] [id number] Oct, [facility] [address] [id number] [address] [place] [address] [id number] Oct, Dental examination Z01.20 [facility] [address] [id number] [address] [place] [phone] Oct, Onychomycosis B35.1 and Othe r diabetic neurological complication associated with type 2 diabetes mellitus E11.49 [facility] [address] [id number] [address] [place] [phone] Sep, Type 2 diabetes mellitus wit h complication E11.8 and Colon cancer screening Z12.11 [facility] [address] [id number] [address] [place] [phone] Sep, Type 2 diabetes mellitus wit h complication E11.8 ; Colon cancer screening Z12.11 and Neuropathy G62.9 [facility] [address] [id number] [address] [place] [phone] August, Diabetes E11.9 [facility] [address] [id number] [address] [place] [address] [id number] Jul, Dental examination Z01.20 [facility] [address] [id number] [address] [place] [phone] 27 May, 2017 Mild intellectual disability F70 [facility] [address] [id number] [address] [place] [phone] 07 May, 2017 Mild intellectual disability F70 ; High risk medication use Z79.899 ; Intermittent explosive disorder in adult F63.81 and Bipolar disorder, unspecified F31.9 [facility] [address] [id number] [address] [place] [phone] May, [facility] [address] [facility] [id number] [address] [place] [phone] May, [facility] [address] [id number] [address] [place] [id number] Apr, Type 2 diabetes mellitus wit h complication E11.8 ; Mild intellectual disability F70 ; Gastroesophageal reflux disease without esophagitis K21.9 ; Reactive airway disease, mild intermittent, uncomplicated J45.20 and Tobacco abuse Z72.0 [facility] [address] [facility] [id number] [address] [place] [id number] Apr, High risk medication use Z79 .899 ; Mild intellectual disability F70 ; Intermittent explosive disorder in adult F63.81 and Bipolar disorder, unspecified F31.9 [facility] [address] [id number] [address] [place] [address] [id number] Mar, Encounter for dental exam an d cleaning w/o abnormal findings Z01.20 [facility] [address] [id number] [address] [place] [address] [id number] Mar, Dental examination Z01.20 [facility] [address] [id number] [address] [place] [phone] Jan, [facility] [address] [id number] [address] [place] [phone] Jan, [facility] [address] [facility] [id number] [address] [place] [phone] Jan, Mild intellectual disability F70 ; Bipolar disorder, unspecified F31.9 and Intermittent explosive disorder in adult F63.81 [facility] [address] [facility] [id number] [address] [place] [phone] Jan, Diabetes E11.9 [facility] [address] [id number] [address] [place] [address] [id number] 13 Dec, 2016 Encounter for dental examina tion and cleaning without abnormal findings Z01.20 [facility] [address] [id number] [address] [place] [phone] 12 Dec, 2016 Bipolar disorder, unspecifie d F31.9 ; Intermittent explosive disorder in adult F63.81 and Mild intellectual disability F70 [facility] [address] [id number] [address] [place] [phone] Nov, Diabetes E11.9 [facility] [address] [id number] [address] [place] [phone] Nov, [facility] [address] [facility] [id number] [address] [place] [phone] Nov, Diabetes E11.9 and Colon can cer screening Z12.[address] [id number] [phone] Sep, Dental examination Z01.20 [facility] [address] [id number] [address] [place] [address] [id number] 21 Sep, 2016 Encounter for dental examina tion and cleaning without abnormal findings Z01.20 [facility] [address] [id number] [address] [place] [phone] Sep, Bipolar disorder, unspecifie d F31.9 [facility] [address] [id number] [address] [place] [phone] Sep, Bipolar disorder, unspecifie d F31.9 [facility] [address] [id number] [address] [place] [phone] Jul, [facility] [address] [facility] [id number] [address] [place] [phone] Jul, Type 2 diabetes mellitus wit h complication E11.8 [facility] [address] [id number] [address] [place] [address] [id number] Jun, Encounter for dental examina tion and cleaning without abnormal findings Z01.[address] [facility] [address] [id number] [id number] Jun, Dental examination Z01.20 [facility] [address] [id number] [address] [place] [phone] Apr, Sports physical Z02.5 [facility] [address] [id number] [address] [place] [id number] 14 Mar, 2016 Bipolar disorder, in partial remission, most recent episode manic F31.73 and Intermittent explosive disorder in adult F63.81 [facility] [address] [id number] [address] [place], [place] [phone] 08 Mar, 2016 [facility] [address] [id number] [address] [place] [phone] Mar, Diabetes E11.9 [facility] [address] [id number] [address] [place] [address] [id number] Feb, Encounter for dental examina tion and cleaning without abnormal findings Z01.20 [facility] [address] [id number] [address] [place] [phone] 22 Dec, 2015 Nocturnal hypoxemia G47.34 a nd Encounter for immunization Z23 [facility] [address] [id number] [address] [place] [phone] 15 Dec, 2015 [facility] [address] [id number] [address] [place] [phone] Dec, [facility] [address] [id number] [address] [place] [phone] Dec, Bipolar disorder, unspecifie d F31.9 [facility] [address] [id number] [address] [place] [address] [id number] Oct, Encounter for dental examina tion and cleaning without abnormal findings Z01.20 [facility] [address] [id number] [id number] Oct, Dental examination Z01.20 [facility] [address] [facility] [id number] [address] [place] [phone] Oct, Diabetes E11.9 [place] [id number] [place] [id number] [address] [place] [phone] Oct, Diabetes E11.9 ; Reactive ai rway disease, mild intermittent, uncomplicated J45.20 and Tobacco abuse Z72.0 [place] [address] [place] [id number] [address] [place] [phone] Sep, Bipolar disorder, unspecifie d F31.9 and Depression F32.9 [place] [address] [id number] Sep, [place] [address] [phone] August, Tinea pedis of both feet B35 .3 and DM w/o complication type II, uncontrolled E11.65 [place] [id number] [place] [id number] [address] [place] [phone] Jul, [place] [address] [id number] Jul, [place] [address] [phone] Jul, Obstructive sleep apnea G47. 33 [place] [address] [place] [id number] [address] [place] [phone] Jun, Diabetes E11.9 [facility] [address] [facility] [id number] [address] [place] [phone] Jun, [facility] [address] [place] [id number] [address] [place] [phone] Jun, [place] [address] [place] [id number] [address] [place] [phone] Jun, Bipolar disorder, unspecifie d F31.9 and Mental retardation F79 [facility] [address] [phone] Apr, [place] [address] [phone] Feb, Diabetes E11.9 ; Encounter f or immunization Z23 ; Cough R05 and Nicotine abuse Z72.0 [place] [address] [phone] Jan, Bipolar disorder, unspecifie d F31.9 and Diabetes mellitus without mention of complication, type II or unspecified type, uncontrolled 250.02 [place] [address] [id number] Jan, [place] [address] [address] Dec, Reactive airway disease 493. 90 and Enuresis 788.30 [place] [address] [phone] Dec, [place] [address] [id number] Nov, [place] [address] [address] Nov, [place] [address] [id number] Nov, Annual physical exam V70.0 ; Urinary incontinence 788.30 ; Diabetes 250.00 and Hypertension 401.9 [place] [address] [id number] Oct, Diabetes mellitus without me ntion of complication, type II or unspecified type, uncontrolled 250.02 [place] [address] [id number] Oct, Diabetes mellitus without me ntion of complication, type II or unspecified type, uncontrolled 250.02 [place] [address] [id number] Oct, Diabetes mellitus without me ntion of complication, type II or unspecified type, uncontrolled 250.02 [facility] [address] [id number] [address] [place] [phone] Oct, [facility] [address] [id number] [address] [place] [phone] Oct, [facility] [address] [id number] [address] [place] [id number] Oct, Bipolar disorder, unspecifie d 296.80 [facility] [address] [id number] [address] [place] [address] [id number] Sep, Dental examination V72.2 [facility] [address] [id number] [address] [place] [phone] August, [facility] [address] [id number] [place] [address] [id number] August, Dental examination V72.2 [facility] [address] [id number] [address] [place] [phone] August, [facility] [address] [id number] [address] [place] [id number] Jul, [facility] [address] [id number] [address] [place] [phone] Jul, [facility] [address] [id number] [address] [place] [phone] Jun, [facility] [address] [id number] [address] [place] [phone] Jun, [facility] [address] [id number] [address] [place] [id number] Jun, [facility] [address] [id number] [address] [place] [phone] Jun, [facility] [address] [id number] [address] [place] [phone] May, [facility] [address] [id number] [address] [place] [address], [place] [address] 23 May, 2014 [facility] [address] [id number] [address] [place] [address], [place] [address] 16 May, 2014 [facility] [address] [id number] [address] [place] [address], [place] [address] 16 May, 2014 [facility] [address] [id number] [address] [place] [address], [place] [address] 16 May, 2014 [facility] [address] [id number] [address] [place] [address], [place] [address] 16 May, 2014 [facility] [address] [id number] [address] [place] [address], [place] [address] 16 May, 2014 [facility] [address] [id number] [address] [place] [address], [place] [address] 16 May, 2014 [facility] [address] [id number] [address] [place] [address], [place] [address] 16 May, 2014 [facility] [address] [id number] [address] [place] [address], [place] [address] 16 May, 2014 [facility] [address] [id number] [address] [place] [address], [place] [address] 16 May, 2014 [facility] [address] [id number] [address] [place] [address], [place] [address] 16 May, 2014 [facility] [address] [id number] [address] [place] [phone] 16 May, 2014 [facility] [address] [id number] [address] [place] [address], [place] [address] 16 May, 2014 [facility] [address] [id number] [address] [place] [address], [place] [address] 16 May, 2014 [facility] [address] [id number] [address] [place] [address], [place] [address] Apr, [facility] [address] [id number] [address] [place] [address], [place] [address] Apr, [facility] [address] [id number] [address] [place] [address], [place] [address] Apr, [facility] [address] [id number] [address] [place] [address], [place] [address] Apr, [facility] [address] [id number] [address] [place] [address], [place] [address] Apr, [facility] [address] [id number] [address] [place] [address], [place] [address] Apr, [facility] [address] [id number] [address] [place] [address], [place] [address] Apr, [facility] [address] [id number] [address] [place] [address], [place] [address] Apr, [facility] [address] [id number] [address] [place] [address], [place] [address] Apr, [facility] [address] [id number] [address] [place] [address], [place] [address] Apr, [facility] [address] [id number] [address] [place] [address], [place] [address] Apr, [facility] [address] [id number] [address] [place] [address], [place] [address] Apr, [facility] [address] [id number] [address] [place] [address], [place] [address] Mar, [facility] [address] [id number] [address] [place] [address], [place] [address] Mar, [facility] [address] [id number] [address] [place] [address], [place] [address] Mar, [facility] [address] [id number] [address] [place] [address], [place] [address] Mar, [facility] [address] [id number] [address] [place] [address], [place] [address] Mar, [facility] [address] [id number] [address] [place] [address], [place] [address] Mar, [facility] [address] [id number] [address] [place] [address], [place] [address] Feb, [facility] [address] [id number] [address] [place] [address], [place] [address] Feb, [facility] [address] [id number] [address] [place] [address], [place] [address] Feb, [facility] [address] [id number] [address] [place] [address], [place] [address] Feb, [facility] [address] [id number] [address] [place] [address], [place] [address] 14 Jan, 2014 [facility] [address] [id number] [address] [place] [address], [place] [address] 14 Jan, 2014 [facility] [address] [id number] [address] [place] [address], [place] [address] 14 Jan, 2014 [facility] [address] [id number] [address] [place] [address], [place] [address] 14 Jan, 2014 [facility] [address] [id number] [address] [place] [address], [place] [address] 22 Dec, 2013 [facility] [address] [id number] [address] [place] [address], [place] [address] 22 Dec, 2013 [facility] [address] [id number] [address] [place] [address], [place] [address] 15 Dec, 2013 [facility] [address] [id number] [address] [place] [address], [place] [address] 15 Dec, 2013 [facility] [address] [id number] [address] [place] [address], [place] [address] Nov, [facility] [address] [id number] [address] [place] [address], [place] [address] Nov, [facility] [address] [id number] [address] [place] [address], [place] [address] Nov, [facility] [address] [id number] [facility] [place] [address] Nov, [facility] [address] [id number] [address] [place] [address], [place] [address] Nov, [facility] [address] [id number] [address] [place] [address], [place] [address] Nov, [facility] [address] [id number] [address] [place] [address], [place] [address] Nov, [facility] [address] [id number] [address] [place] [address], [place] [address] Oct, [facility] [address] [id number] [address] [place] [address], [place] [address] Oct, [facility] [address] [id number] [address] [place] [address], [place] [address] Oct, [facility] [address] [id number] [address] [place] [address], [place] [address] Oct, [facility] [address] [id number] [address] [place] [address], [place] [address] Oct, [facility] [address] [id number] [address] [place] [address], [place] [address] Oct, [facility] [address] [id number] [address] [place] [address], [place] [address] Oct, [facility] [address] [id number] [address] [place] [address], [place] [address] Sep, [facility] [address] [id number] [address] [place] [address], [place] [address] Sep, [facility] [address] [id number] [address] [place] [address], [place] [address] Sep, [facility] [address] [id number] [address] [place] [address], [place] [address] Sep, [facility] [address] [id number] [address] [place] [address], [place] [address] Sep, [facility] [address] [id number] [address] [place] [address], [place] [address] Jul, [facility] [address] [id number] [address] [place] [address], [place] [address] Jul, [facility] [address] [id number] [address] [place] [address], [place] [address] Jul, [facility] [address] [id number] [address] [place] [address], [place] [address] Jul, [facility] [address] [id number] [address] [place] [address], [place] [address] Jul, [facility] [address] [id number] [address] [place] [address], [place] [address] Jul, [facility] [address] [id number] [address] [place] [address], [place] [address] Jul, [facility] [address] [id number] [address] [place] [address], [place] [address] Jul, [facility] [address] [id number] [address] [place] [address], [place] [address] Jul, [facility] [address] [id number] [address] [place] [address], [place] [address] Jul, [facility] [address] [id number] [address] [place] [address], [place] [address] Jul, [facility] [address] [id number] [address] [place] [address], [place] [address] Jul, [facility] [address] [id number] [address] [place] [address], [place] [address] Jun, [facility] [address] [id number] [address] [place] [address], [place] [address] Jun, [facility] [address] [id number] [address] [place] [address], [place] [address] Jun, [facility] [address] [id number] [address] [place] [address], [place] [address] Jun, [facility] [address] [id number] [address] [place] [address], [place] [address] Jun, [facility] [address] [id number] [address] [place] [address], [place] [address] Jun, [facility] [address] [id number] [address] [place] [address], [place] [address] Jun, [facility] [address] [id number] [address] [place] [address], [place] [address] Jun, [facility] [address] [id number] [address] [place] [address], [place] [address] May, [facility] [address] [id number] [address] [place] [address], [place] [address] May, [facility] [address] [id number] [address] [place] [address], [place] [address] May, [facility] [address] [id number] [address] [place] [address], [place] [address] May, [facility] [address] [id number] [address] [place] [address], [place] [address] May, [facility] [address] [id number] [address] [place] [address], [place] [address] May, [facility] [address] [id number] [address] [place] [address], [place] [address] May, [facility] [address] [id number] [address] [place] [address], [place] [address] May, [facility] [address] [id number] [address] [place] [address], [place] [address] Apr, [facility] [address] [id number] [address] [place] [address], [place] [address] Apr, [facility] [address] [id number] [address] [place] [address], [place] [address] Apr, [facility] [address] [id number] [address] [place] [address], [place] [address] Apr, [facility] [address] [id number] [address] [place] [address], [place] [address] Mar, [facility] [address] [id number] [address] [place] [address], [place] [address] Mar, [facility] [address] [id number] [address] [place] [address], [place] [address] Mar, [facility] [address] [id number] [address] [place] [address], [place] [address] Feb, [facility] [address] [id number] [address] [place] [address], [place] [address] Feb, [facility] [address] [id number] [address] [place] [address], [place] [address] Feb, [facility] [address] [id number] [address] [place] [address], [place] [address] Feb, [facility] [address] [id number] [address] [place] [address], [place] [address] Feb, [facility] [address] [id number] [address] [place] [address], [place] [address] Feb, [facility] [address] [id number] [address] [place] [address], [place] [address] Jan, [facility] [address] [id number] [address] [place] [address], [place] [address] Jan, [facility] [address] [id number] [address] [place] [address], [place] [address] Jan, [facility] [address] [id number] [address] [place] [address], [place] [address] Jan, [facility] [address] [id number] [address] [place] [address], [place] [address] Jan, [facility] [address] [id number] [address] [place] [address], [place] [address] Jan, [facility] [address] [id number] [address] [place] [address], [place] [address] Jan, [facility] [address] [id number] [address] [place] [address], [place] [address] Dec, [facility] [address] [id number] [address] [place] [address], [place] [address] 16 Dec, 2012 [facility] [address] [id number] [address] [place] [address], [place] [address] Dec, [facility] [address] [id number] [address] [place] [address], [place] [address] Dec, [facility] [address] [id number] [address] [place] [address], [place] [address] Nov, [facility] [address] [id number] [address] [place] [address], [place] [address] Nov, [facility] [address] [id number] [address] [place] [address], [place] [address] Nov, [facility] [address] [id number] [address] [place] [address], [place] [address] Nov, [facility] [address] [id number] [address] [place] [address], [place] [address] Nov, [facility] [address] [id number] [address] [place] [address], [place] [address] Nov, [facility] [address] [id number] [address] [place] [address], [place] [address] Nov, [facility] [address] [id number] [address] [place] [address], [place] [address] Oct, [facility] [address] [id number] [address] [place] [address], [place] [address] Oct, [facility] [address] [id number] [address] [place] [address], [place] [address] Oct, [facility] [address] [id number] [address] [place] [address], [place] [address] Oct, [facility] [address] [id number] [address] [place] [address], [place] [address] Oct, [facility] [address] [id number] [address] [place] [address], [place] [address] Oct, [facility] [address] [id number] [address] [place] [address], [place] [address] Oct, [facility] [address] [id number] [address] [place] [address], [place] [address] Oct, [facility] [address] [id number] [address] [place] [address], [place] [address] Sep, Suleiman PEREZ [address] [facility] [id number] [place] [id number] August, [facility] [address] [id number] [address] [place] [address], [place] [address] August, [facility] [address] [id number] [address] [place] [address], [place] [address] Jul, [facility] [address] [id number] [address] [place] [address], [place] [address] Jul, [facility] [address] [id number] [address] [place] [address], [place] [address] Jul, [facility] [address] [id number] [address] [place] [address], [place] [address] Jul, [facility] [address] [id number] [address] [place] [address], [place] [address] 18 Jul, 2012 [facility] [address] [id number] [address] [place] [address], [place] [address] Jul, [facility] [address] [id number] [address] [place] [address], [place] [address] Jul, [facility] [address] [id number] [address] [place] [address], [place] [address] Jun, [facility] [address] [id number] [address] [place] [address], [place] [address] 18 Jun, 2012 [facility] [address] [id number] [address] [place] [address], [place] [address] Jun, [facility] [address] [id number] [address] [place] [address], [place] [address] 04 Jun, 2012 [facility] [address] [id number] [address] [place] [address], [place] [address] 04 Jun, 2012 [facility] [address] [id number] [address] [place] [address], [place] [address] 19 May, 2012 [facility] [address] [id number] [address] [place] [address], [place] [address] 18 May, 2012 [facility] [address] [id number] [address] [place] [address], [place] [address] 04 May, 2012 [facility] [address] [id number] [address] [place] [address], [place] [address] 15 Apr, 2012 [facility] [address] [id number] [address] [place] [address], [place] [address] 14 Apr, 2012 [facility] [address] [id number] [address] [place] [address], [place] [address] Apr, [facility] [address] [id number] [address] [place] [address], [place] [address] Mar, [facility] [address] [id number] [address] [place] [address], [place] [address] Mar, [facility] [address] [id number] [address] [place] [address], [place] [address] 13 Mar, 2012 [facility] [address] [id number] [address] [place] [address], [place] [address] 13 Mar, 2012 [facility] [address] [id number] [address] [place] [address], [place] [address] Mar, [facility] [address] [id number] [address] [place] [address], [place] [address] Mar, [facility] [address] [id number] [address] [place] [address], [place] [address] Feb, [facility] [address] [id number] [address] [place] [address], [place] [address] Feb, [facility] [address] [id number] [address] [place] [address], [place] [address] Jan, [facility] [address] [id number] [address] [place] [address], [place] [address] Jan, [facility] [address] [id number] [address] [place] [address], [place] [address] Dec, [facility] [address] [id number] [address] [place] [address], [place] [address] Nov, [facility] [address] [id number] [address] [place] [address], [place] [address] Nov, [facility] [address] [id number] [address] [place] [address], [place] [address] Nov, [facility] [address] [id number] [address] [place] [address], [place] [address] Nov, [facility] [address] [id number] [address] [place] [address], [place] [address] Oct, [facility] [address] [id number] [address] [place] [address], [place] [address] Oct, [facility] [address] [id number] [address] [place] [address], [place] [address] Oct, [facility] [address] [id number] [address] [place] [address], [place] [address] Sep, [facility] [address] [id number] [address] [place] [address], [place] [address] Sep, [facility] [address] [id number] [address] [place] [address], [place] [address] Sep, [facility] [address] [id number] [address] [place] [address], [place] [address] August, [facility] [address] [id number] [address] [place] [address], [place] [address] August, [facility] [address] [id number] [address] [place] [address], [place] [address] Jul, [facility] [address] [id number] [address] [place] [address], [place] [address] Jul, [facility] [address] [id number] [address] [place] [address], [place] [address] Jul, [facility] [address] [id number] [address] [place] [address], [place] [address] Jul, [facility] [address] [id number] [address] [place] [address], [place] [address] Jun, [facility] [address] [id number] [address] [place] [address], [place] [address] May, [facility] [address] [id number] [address] [place] [address], [place] [address] Apr, [facility] [address] [id number] [address] [place] [address], [place] [address] Apr, [facility] [address] [id number] [address] [place] [address], [place] [address] Apr, [facility] [address] [id number] [address] [place] [address], [place] [address] Apr, [facility] [address] [id number] [address] [place] [address], [place] [address] Apr, [facility] [address] [id number] [address] [place] [address], [place] [address] Apr, [facility] [address] [id number] [address] [place] [address], [place] [address] Mar, [facility] [address] [id number] [address] [place] [address], [place] [address] Mar, [facility] [address] [id number] [address] [place] [address], [place] [address] 29 Feb, 2011 [facility] [address] [id number] [address] [place] [address], [place] [address] Feb, [facility] [address] [id number] [address] [place] [address], [place] [address] Feb, [facility] [address] [id number] [address] [place] [address], [place] [address] Feb, [facility] [address] [id number] [address] [place] [address], [place] [address] Jan, [facility] [address] [id number] [address] [place] [address], [place] [address] 18 Jan, 2011 [facility] [address] [id number] [address] [place] [address], [place] [address] Jan, [facility] [address] [id number] [address] [place] [address], [place] [address] Jan, [facility] [address] [id number] [address] [place] [address], [place] [address] Nov, [facility] [address] [id number] [address] [place] [address], [place] [address] Mar, [facility] [address] [id number] [address] [place] [address], [place] [address] Mar, [facility] [address] [id number] [address] [place] [address], [place] [address] 30 Feb, 2010 [facility] [address] [id number] [address] [place] [address], [place] [address] 15 Feb, 2010 [facility] [address] [id number] [address] [place] [address], [place] [address] 19 Jan, 2010 [facility] [address] [id number] [address] [place] [address] Jan, [facility] [address] [id number] [address] [place] [address] Sep, [facility] [address] [id number] [address] [place] [address] May, [facility] [address] [id number] [address] [place] [address] Apr, [facility] [address] [id number] [address] [place] [address] Mar, [facility] [address] [id number] [address] [place] [address] Feb, [facility] [address] [id number] [address] [place] [address] Feb, [facility] [address] [id number] [address] [place] [address] Feb, [facility] [address] [id number] [address] [place] [address] Jan, [facility] [address] [id number] [address] [place] [address] Jan, [facility] [address] [id number] [address] [place] [address] Jan, [facility] [address] [id number] [address] [place] [address] Jan, [facility] [address] [id number] [address] [place] [address] August, IMMUNIZATIONS No Known Immunizations SOCIAL HISTORY Never Assessed REASON FOR VISIT PLAN OF CARE Activity Details Follow Up prn Reason:restorative VITAL SIGNS MEDICATIONS Unknown Medications RESULTS No Results PROCEDURES Procedure Date Ordered Result Body Site PERIODIC ORAL EXAMINATION October 30, 2017 PROPHYLAXIS - ADULT October 30, 2017 TOPICAL FLUORIDE VARNISH October 30, 2017 INSTRUCTIONS MEDICATIONS ADMINISTERED No Known Medications MEDICAL [...] age 6 Hospitalization History surgery Hospitalization History [facility], inar tie treatment few times for BH
--- OUTSIDE RECORDS SUMMARY | 2019-09-29 11:00 | XMS REPORT ---
Author Author Cameron PARK Organization [facility], [place] Address [address] [place] [address] Care Team Providers Care Irrigator Valve Pipe Name Role Phone VIVIANNATI AshfordIN Unavailable PROBLEMS Type Condition ICD9-CM Code TUP53-FX Code Onset Dates Condition S tatus SNOMED Code Problem Diabetes E11.9 Active 28541302 Problem Intermittent explosive disorder in adult F63.81 Active 37534629 Problem Bipolar disorder, in partial remission, most rec ent episode manic F31.73 Active 57114794 Problem Neuropathy G62.9 Active 295999255 Problem Other diabetic neurological complication associated with type 2 diabetes mellitus E11.49 Active 455964428 Problem Mild intellectual disability F70 A ctive 26861175 Problem Bipolar disorder, unspecified F31.9 Active 08681075 Problem Gastroesophageal reflux disease without esophagitis K21.9 Active 598960207 Problem Reactive airway disease, mild intermittent, uncomplicated J45.20 Active 563884909 Problem Adjustment disorder, unspecified type F43.20 Active 34902361 Problem Open-angle glaucoma of both eyes, unspecified glaucoma stage, unspecified open-angle glaucoma type H40.10X0 Acti ve 39744777 Problem 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 [id number] [address] [address] Apr, [facility] [place] [address] [place] [id number] [address] [place] [address] Jan, [facility] [place] [address] [facility] [id number] [address] [place] [address] Nov, Type 2 diabetes mellitus wit h complication E11.8 [facility] [place] [address] [facility] [id number] [address] [place] [address] Nov, [facility] [place] [address] [facility] [id number] [address] [place] [address] Oct, Intermittent explosive disor salvatore in adult F63.81 ; Bipolar disorder, unspecified F31.9 and Mild intellectual disability F70 [place] [address] [facility] [id number] [address] [place] [address] Oct, [facility] [address] [place] [id number] [address] [place] [address] [id number] Oct, Dental examination Z01.20 [place] [address] [facility] [id number] [address] [place] [address] Oct, Onychomycosis B35.1 and Othe r diabetic neurological complication associated with type 2 diabetes mellitus E11.49 [place] [address] [facility] [id number] [address] [place] [address] Sep, Type 2 diabetes mellitus wit h complication E11.8 and Colon cancer screening Z12.11 [place] [address] [facility] [id number] [address] [place] [address] Sep, Type 2 diabetes mellitus wit h complication E11.8 ; Colon cancer screening Z12.11 and Neuropathy G62.9 [facility] [place] [address] [id number] [address] [place] [address] August, Diabetes E11.9 [facility] [address] [id number] [address] [place] [address] [phone] Jul, Dental examination Z01.20 [facility] [place] [address] [facility] [id number] [address] [place] [address] 27 May, 2017 Mild intellectual disability F70 [facility] [place] [address] [id number] [address] [place] [address] May, Mild intellectual disability F70 ; High risk medication use Z79.899 ; Intermittent explosive disorder in adult F63.81 and Bipolar disorder, unspecified F31.9 [facility] [place] [address] [facility] [id number] [address] [place] [address] May, [facility] [place] [address] [id number] [address] [place] [address] May, [facility] [place] [address] [facility] [id number] [address] [place] [address] Apr, Type 2 diabetes mellitus wit h complication E11.8 ; Mild intellectual disability F70 ; Gastroesophageal reflux disease without esophagitis K21.9 ; Reactive airway disease, mild intermittent, uncomplicated J45.20 and Tobacco abuse Z72.0 [facility] [place] [address] [facility] [id number] [address] [place] [address] Apr, High risk medication use Z79 .899 ; Mild intellectual disability F70 ; Intermittent explosive disorder in adult F63.81 and Bipolar disorder, unspecified F31.9 [facility] [address] [id number] [address] [place] [address] [phone] Mar, Encounter for dental exam an d cleaning w/o abnormal findings Z01.20 [facility] [address] [id number] [address] [place] [address] [id number] Mar, Dental examination Z01.20 [facility] [place] [address] [id number] [address] [place] [address] 12 Jan, 2017 [facility] [place] [address] [id number] [address] [place] [address] Jan, [facility] [place] [address] [facility] [id number] [address] [place] [address] Jan, Mild intellectual disability F70 ; Bipolar disorder, unspecified F31.9 and Intermittent explosive disorder in adult F63.81 [facility] [place] [address] [id number] [address] [place] [address] 02 Jan, 2017 Diabetes E11.9 [facility] [address] [id number] [address] [place] [address] [id number] 13 Dec, 2016 Encounter for dental examina tion and cleaning without abnormal findings Z01.20 [facility] [place] [address] [id number] [address] [place] [address] 12 Dec, 2016 Bipolar disorder, unspecifie d F31.9 ; Intermittent explosive disorder in adult F63.81 and Mild intellectual disability F70 [facility] [place] [address] [id number] [address] [place] [address] Nov, Diabetes E11.9 [facility] [place] [address] [id number] [address] [place] [address] Nov, [facility] [place] [address] [facility] [id number] [address] [place] [address] Nov, Diabetes E11.9 and Colon can cer screening Z12.[address] [id number] [place] [address] [phone] Sep, Dental examination Z01.20 [facility] [address] [id number] [address] [place] [address] [id number] 21 Sep, 2016 Encounter for dental examina tion and cleaning without abnormal findings Z01.20 [facility] [place] [address] [id number] [address] [place] [address] Sep, Bipolar disorder, unspecifie d F31.9 [facility] [place] [address] [id number] [address] [place] [address] Sep, Bipolar disorder, unspecifie d F31.9 [facility] [place] [address] [id number] [address] [place] [address] Jul, [facility] [place] [address] [id number] [address] [place] [address] Jul, Type 2 diabetes mellitus wit h complication E11.8 [facility] [address] [id number] [address] [place] [address] [id number] 15 Jun, 2016 Encounter for dental examina tion and cleaning without abnormal findings Z01.[address] [facility] [address] [id number] [id number] 15 Jun, 2016 Dental examination Z01.20 [facility] [place] [address] [id number] [address] [place] [phone] 18 Apr, 2016 Sports physical Z02.5 [facility] [place] [address] [id number] [address] [place] [address] 14 Mar, 2016 Bipolar disorder, in partial remission, most recent episode manic F31.73 and Intermittent explosive disorder in adult F63.81 [facility] [place] [address] [facility] [id number] [address] [place] [phone] 08 Mar, 2016 [facility] [place] [address] [facility] [id number] [address] [place] [phone] 06 Mar, 2016 Diabetes E11.9 [facility] [address] [facility] [id number] [address] [place] [address] [id number] Feb, Encounter for dental examina tion and cleaning without abnormal findings Z01.20 [facility] [place] [address] [id number] [address] [place] [address] 22 Dec, 2015 Nocturnal hypoxemia G47.34 a nd Encounter for immunization Z23 [facility] [place] [address] [id number] [address] [place] [address] 15 Dec, 2015 [facility] [place] [address] [id number] [address] [place] [address] Dec, [facility] [place] [address] [id number] [address] [place] [address] Dec, Bipolar disorder, unspecifie d F31.9 [facility] [address] [id number] [address] [place] [address] [id number] Oct, Encounter for dental examina tion and cleaning without abnormal findings Z01.[address] [place] [id number] [place] [address] [id number] Oct, Dental examination Z01.20 [place] [address] [facility] [id number] [address] [place] [address] Oct, Diabetes E11.9 [place] [address] [place] [id number] [address] [place] [address] Oct, Diabetes E11.9 ; Reactive ai rway disease, mild intermittent, uncomplicated J45.20 and Tobacco abuse Z72.0 [place] [address] [place] [id number] [address] [place] [address] Sep, Bipolar disorder, unspecifie d F31.9 and Depression F32.9 [place] [address] [address] Sep, [place] [address] [address] August, Tinea pedis of both feet B35 .3 and DM w/o complication type II, uncontrolled E11.65 [place] [address] [place] [id number] [address] [place] [address] Jul, [place] [address] [place] [id number] [address] [place] [address] Jul, [place] [address] [address] Jul, Obstructive sleep apnea G47. 33 [place] [address] [place] [id number] [address] [place] [address] Jun, Diabetes E11.9 [facility] [place] [address] [place] [id number] [address] [place] [address] Jun, [place] [address] [place] [id number] [address] [place] [address] Jun, [place] [address] [place] [id number] [address] [place] [phone] Jun, Bipolar disorder, unspecifie d F31.9 and Mental retardation F79 [place] [address] [address] Apr, [place] [address] [address] Feb, Diabetes E11.9 ; Encounter f or immunization Z23 ; Cough R05 and Nicotine abuse Z72.0 [place] [address] [address] Jan, Bipolar disorder, unspecifie d F31.9 and Diabetes mellitus without mention of complication, type II or unspecified type, uncontrolled 250.02 [place] [address] [address] Jan, [place] [address] [address] Dec, Reactive airway disease 493. 90 and Enuresis 788.30 [place] [address] [address] Dec, [place] [address] [address] Nov, [place] [address] [address] Nov, [place] [address] [address] Nov, Annual physical exam V70.0 ; Urinary incontinence 788.30 ; Diabetes 250.00 and Hypertension 401.9 [place] [address] [address] Oct, Diabetes mellitus without me ntion of complication, type II or unspecified type, uncontrolled 250.02 [place] [address] [address] Oct, Diabetes mellitus without me ntion of complication, type II or unspecified type, uncontrolled 250.02 [place] [address] [address] Oct, Diabetes mellitus without me ntion of complication, type II or unspecified type, uncontrolled 250.02 [facility] [place] [address] [id number] [address] [place] [address] Oct, [facility] [place] [address] [id number] [address] [place] [address] Oct, [facility] [place] [address] [id number] [address] [place] [address] Oct, Bipolar disorder, unspecifie d 296.80 [facility] [address] [id number] [place] [address] [id number] Sep, Dental examination V72.2 [facility] [place] [address] [id number] [address] [place] [address] August, [facility] [address] [id number] [place] [address] [id number] August, Dental examination V72.2 [facility] [place] [address] [id number] [address] [place] [address] August, [facility] [place] [address] [id number] [address] [place] [address] Jul, [facility] [place] [address] [id number] [address] [place] [address] Jul, [facility] [place] [address] [id number] [address] [place] [address] Jun, [facility] [place] [address] [id number] [address] [place] [address] Jun, [facility] [place] [address] [id number] [address] [place] [address] Jun, [facility] [place] [address] [id number] [address] [place] [address] Jun, [facility] [place] [address] [id number] [address] [place] [address] May, [facility] [address] [id number] [address] [place] [address], [place] [address] May, 2014 [facility] [address] [id number] [address] [place] [address], [place] [address] 16 May, 2014 [facility] [address] [id number] [address] [place] [address], [place] [address] 16 May, 2014 [facility] [address] [id number] [address] [place] [address], [place] [address] 16 May, 2014 [facility] [address] [id number] [address] [place] [address], [place] [address] 16 May, 2014 [facility] [address] [id number] [address] [place] [address], [place] [address] 16 May, 2014 [facility] [address] [id number] [address] [place] [address], [place] [address] 16 May, 2014 [facility] [address] [id number] [address] [place] [address], [place] [address] 16 May, 2014 [facility] [address] [id number] [address] [place] [address], [place] [address] 16 May, 2014 [facility] [address] [id number] [address] [place] [address], [place] [address] 16 May, 2014 [facility] [address] [id number] [address] [place] [address], [place] [address] 16 May, 2014 [facility] [address] [id number] [address] [place] [address], [place] [address] 16 May, 2014 [facility] [address] [id number] [address] [place] [address], [place] [address] 16 May, 2014 [facility] [address] [id number] [address] [place] [address], [place] [address] 16 May, 2014 [facility] [address] [id number] [address] [place] [address], [place] [address] Apr, [facility] [address] [id number] [address] [place] [address], [place] [address] Apr, [facility] [address] [id number] [address] [place] [address], [place] [address] Apr, [facility] [address] [id number] [address] [place] [address], [place] [address] Apr, [facility] [address] [id number] [address] [place] [address], [place] [address] Apr, [facility] [address] [id number] [address] [place] [address], [place] [address] Apr, [facility] [address] [id number] [address] [place] [address], [place] [address] Apr, [facility] [address] [id number] [address] [place] [address], [place] [address] Apr, [facility] [address] [id number] [address] [place] [address], [place] [address] Apr, [facility] [address] [id number] [address] [place] [address], [place] [address] Apr, [facility] [address] [id number] [address] [place] [address], [place] [address] Apr, [facility] [address] [id number] [address] [place] [address], [place] [address] Apr, [facility] [address] [id number] [address] [place] [address], [place] [address] Mar, [facility] [address] [id number] [address] [place] [address], [place] [address] Mar, [facility] [address] [id number] [address] [place] [address], [place] [address] Mar, [facility] [address] [id number] [address] [place] [address], [place] [address] Mar, [facility] [address] [id number] [address] [place] [address], [place] [address] 10 Mar, 2014 [facility] [address] [id number] [address] [place] [address], [place] [address] 10 Mar, 2014 [facility] [address] [id number] [address] [place] [address], [place] [address] Feb, [facility] [address] [id number] [address] [place] [address], [place] [address] Feb, [facility] [address] [id number] [address] [place] [address], [place] [address] Feb, [facility] [address] [id number] [address] [place] [address], [place] [address] Feb, [facility] [address] [id number] [address] [place] [address], [place] [address] 14 Jan, 2014 [facility] [address] [id number] [address] [place] [address], [place] [address] 14 Jan, 2014 [facility] [address] [id number] [address] [place] [address], [place] [address] 14 Jan, 2014 [facility] [address] [id number] [address] [place] [address], [place] [address] 14 Jan, 2014 [facility] [address] [id number] [address] [place] [address], [place] [address] 22 Dec, 2013 [facility] [address] [id number] [address] [place] [address], [place] [address] 22 Dec, 2013 [facility] [address] [id number] [address] [place] [address], [place] [address] 15 Dec, 2013 [facility] [address] [id number] [address] [place] [address], [place] [address] 15 Dec, 2013 [facility] [address] [id number] [address] [place] [address], [place] [address] Nov, [facility] [address] [id number] [address] [place] [address], [place] [address] Nov, [facility] [address] [id number] [facility] [place] [address] Nov, [facility] [address] [id number] [facility] [place] [address] Nov, [facility] [address] [id number] [facility] [place] [address] Nov, [facility] [address] [id number] [address] [place] [address], [place] [address] Nov, [facility] [address] [id number] [address] [place] [address], [place] [address] Nov, [facility] [address] [id number] [address] [place] [address], [place] [address] Oct, [facility] [address] [id number] [address] [place] [address], [place] [address] Oct, [facility] [address] [id number] [address] [place] [address], [place] [address] Oct, [facility] [address] [id number] [address] [place] [address], [place] [address] Oct, [facility] [address] [id number] [address] [place] [address], [place] [address] Oct, [facility] [address] [id number] [address] [place] [address], [place] [address] Oct, [facility] [address] [id number] [address] [place] [address], [place] [address] Oct, [facility] [address] [id number] [address] [place] [address], [place] [address] Sep, [facility] [address] [id number] [address] [place] [address], [place] [address] Sep, [facility] [address] [id number] [address] [place] [address], [place] [address] Sep, [facility] [address] [id number] [address] [place] [address], [place] [address] Sep, [facility] [address] [id number] [address] [place] [address], [place] [address] Sep, [facility] [address] [id number] [address] [place] [address], [place] [address] Jul, [facility] [address] [id number] [address] [place] [address], [place] [address] Jul, [facility] [address] [id number] [address] [place] [address], [place] [address] Jul, [facility] [address] [id number] [address] [place] [address], [place] [address] Jul, [facility] [address] [id number] [address] [place] [address], [place] [address] Jul, [facility] [address] [id number] [address] [place] [address], [place] [address] Jul, [facility] [address] [id number] [address] [place] [address], [place] [address] Jul, [facility] [address] [id number] [address] [place] [address], [place] [address] Jul, [facility] [address] [id number] [address] [place] [address], [place] [address] Jul, [facility] [address] [id number] [address] [place] [address], [place] [address] Jul, [facility] [address] [id number] [address] [place] [address], [place] [address] Jul, [facility] [address] [id number] [address] [place] [address], [place] [address] Jul, [facility] [address] [id number] [address] [place] [address], [place] [address] Jun, [facility] [address] [id number] [address] [place] [address], [place] [address] Jun, [facility] [address] [id number] [address] [place] [address], [place] [address] Jun, [facility] [address] [id number] [address] [place] [address], [place] [address] Jun, [facility] [address] [id number] [address] [place] [address], [place] [address] Jun, [facility] [address] [id number] [address] [place] [address], [place] [address] Jun, [facility] [address] [id number] [address] [place] [address], [place] [address] Jun, [facility] [address] [id number] [address] [place] [address], [place] [address] Jun, [facility] [address] [id number] [address] [place] [address], [place] [address] May, [facility] [address] [id number] [address] [place] [address], [place] [address] May, [facility] [address] [id number] [address] [place] [address], [place] [address] May, [facility] [address] [id number] [address] [place] [address], [place] [address] May, [facility] [address] [id number] [address] [place] [address], [place] [address] May, [facility] [address] [id number] [address] [place] [address], [place] [address] May, [facility] [address] [id number] [address] [place] [address], [place] [address] May, [facility] [address] [id number] [address] [place] [address], [place] [address] May, [facility] [address] [id number] [address] [place] [address], [place] [address] Apr, [facility] [address] [id number] [address] [place] [address], [place] [address] Apr, [facility] [address] [id number] [address] [place] [address], [place] [address] Apr, [facility] [address] [id number] [address] [place] [address], [place] [address] Apr, [facility] [address] [id number] [address] [place] [address], [place] [address] Mar, [facility] [address] [id number] [address] [place] [address], [place] [address] Mar, [facility] [address] [id number] [address] [place] [address], [place] [address] Mar, [facility] [address] [id number] [address] [place] [address], [place] [address] Feb, [facility] [address] [id number] [address] [place] [address], [place] [address] Feb, [facility] [address] [id number] [address] [place] [address], [place] [address] Feb, [facility] [address] [id number] [address] [place] [address], [place] [address] Feb, [facility] [address] [id number] [address] [place] [address], [place] [address] Feb, [facility] [address] [id number] [address] [place] [address], [place] [address] Feb, [facility] [address] [id number] [address] [place] [address] Jan, [facility] [address] [id number] [address] [place] [address], [place] [address] Jan, [facility] [address] [id number] [address] [place] [address], [place] [address] Jan, [facility] [address] [id number] [address] [place] [address] Jan, [facility] [address] [id number] [address] [place] [address], [place] [address] Jan, [facility] [address] [id number] [address] [place] [address], [place] [address] Jan, [facility] [address] [id number] [address] [place] [address], [place] [address] Jan, [facility] [address] [id number] [address] [place] [address], [place] [address] Dec, [facility] [address] [id number] [address] [place] [address], [place] [address] 16 Dec, 2012 [facility] [address] [id number] [address] [place] [address], [place] [address] Dec, [facility] [address] [id number] [address] [place] [address], [place] [address] Dec, [facility] [address] [id number] [address] [place] [address], [place] [address] Nov, [facility] [address] [id number] [address] [place] [address], [place] [address] Nov, [facility] [address] [id number] [address] [place] [address], [place] [address] Nov, [facility] [address] [id number] [address] [place] [address], [place] [address] Nov, [facility] [address] [id number] [address] [place] [address], [place] [address] Nov, [facility] [address] [id number] [address] [place] [address], [place] [address] Nov, [facility] [address] [id number] [address] [place] [address], [place] [address] Nov, [facility] [address] [id number] [address] [place] [address], [place] [address] Oct, [facility] [address] [id number] [address] [place] [address], [place] [address] Oct, [facility] [address] [id number] [address] [place] [address], [place] [address] Oct, [facility] [address] [id number] [address] [place] [address], [place] [address] Oct, [facility] [address] [id number] [address] [place] [address], [place] [address] Oct, [facility] [address] [id number] [address] [place] [address], [place] [address] Oct, [facility] [address] [id number] [address] [place] [address], [place] [address] Oct, [facility] [address] [id number] [address] [place] [address], [place] [address] Oct, [facility] [address] [id number] [address] [place] [address], [place] [address] Sep, Suleiman PEREZ [facility] [id number] [place] [id number] August, [facility] [address] [id number] [address] [place] [address], [place] [address] August, [facility] [address] [id number] [address] [place] [address], [place] [address] Jul, [facility] [address] [id number] [address] [place] [address], [place] [address] Jul, [facility] [address] [id number] [address] [place] [address], [place] [address] Jul, [facility] [address] [id number] [address] [place] [address], [place] [address] Jul, [facility] [address] [id number] [address] [place] [address], [place] [address] Jul, [facility] [address] [id number] [address] [place] [address], [place] [address] 17 Jul, 2012 [facility] [address] [id number] [address] [place] [address], [place] [address] 16 Jul, 2012 [facility] [address] [id number] [address] [place] [address], [place] [address] Jun, [facility] [address] [id number] [address] [place] [address], [place] [address] 18 Jun, 2012 [facility] [address] [id number] [address] [place] [address], [place] [address] Jun, [facility] [address] [id number] [address] [place] [address], [place] [address] 04 Jun, 2012 [facility] [address] [id number] [address] [place] [address], [place] [address] 04 Jun, 2012 [facility] [address] [id number] [address] [place] [address], [place] [address] 19 May, 2012 [facility] [address] [id number] [address] [place] [address], [place] [address] 18 May, 2012 [facility] [address] [id number] [address] [place] [address], [place] [address] 04 May, 2012 [facility] [address] [id number] [address] [place] [address], [place] [address] 15 Apr, 2012 [facility] [address] [id number] [address] [place] [address], [place] [address] 14 Apr, 2012 [facility] [address] [id number] [address] [place] [address], [place] [address] Apr, [facility] [address] [id number] [address] [place] [address], [place] [address] Mar, [facility] [address] [id number] [address] [place] [address], [place] [address] Mar, [facility] [address] [id number] [address] [place] [address], [place] [address] 13 Mar, 2012 [facility] [address] [id number] [address] [place] [address], [place] [address] 13 Mar, 2012 [facility] [address] [id number] [address] [place] [address], [place] [address] Mar, [facility] [address] [id number] [address] [place] [address], [place] [address] Mar, [facility] [address] [id number] [address] [place] [address], [place] [address] Feb, [facility] [address] [id number] [address] [place] [address], [place] [address] Feb, [facility] [address] [id number] [address] [place] [address], [place] [address] Jan, [facility] [address] [id number] [address] [place] [address], [place] [address] Jan, [facility] [address] [id number] [address] [place] [address], [place] [address] Dec, [facility] [address] [id number] [address] [place] [address], [place] [address] Nov, [facility] [address] [id number] [address] [place] [address], [place] [address] Nov, [facility] [address] [id number] [address] [place] [address], [place] [address] Nov, [facility] [address] [id number] [address] [place] [address], [place] [address] Nov, [facility] [address] [id number] [address] [place] [address], [place] [address] Oct, [facility] [address] [id number] [address] [place] [address], [place] [address] Oct, [facility] [address] [id number] [address] [place] [address], [place] [address] Oct, [facility] [address] [id number] [address] [place] [address], [place] [address] Sep, [facility] [address] [id number] [address] [place] [address], [place] [address] Sep, [facility] [address] [id number] [address] [place] [address], [place] [address] Sep, [facility] [address] [id number] [address] [place] [address], [place] [address] August, [facility] [address] [id number] [address] [place] [address], [place] [address] August, [facility] [address] [id number] [address] [place] [address], [place] [address] Jul, [facility] [address] [id number] [address] [place] [address], [place] [address] Jul, [facility] [address] [id number] [address] [place] [address], [place] [address] Jul, [facility] [address] [id number] [address] [place] [address], [place] [address] Jul, [facility] [address] [id number] [address] [place] [address], [place] [address] Jun, [facility] [address] [id number] [address] [place] [address], [place] [address] May, [facility] [address] [id number] [address] [place] [address], [place] [address] Apr, [facility] [address] [id number] [address] [place] [address], [place] [address] Apr, [facility] [address] [id number] [address] [place] [address], [place] [address] Apr, [facility] [address] [id number] [address] [place] [address], [place] [address] Apr, [facility] [address] [id number] [address] [place] [address], [place] [address] Apr, [facility] [address] [id number] [address] [place] [address], [place] [address] Apr, [facility] [address] [id number] [address] [place] [address], [place] [address] Mar, [facility] [address] [id number] [address] [place] [address], [place] [address] Mar, [facility] [address] [id number] [address] [place] [address], [place] [address] Feb, [facility] [address] [id number] [address] [place] [address], [place] [address] Feb, [facility] [address] [id number] [address] [place] [address], [place] [address] Feb, [facility] [address] [id number] [address] [place] [address], [place] [address] Feb, [facility] [address] [id number] [address] [place] [address], [place] [address] Jan, [facility] [address] [id number] [address] [place] [address], [place] [address] Jan, [facility] [address] [id number] [address] [place] [address], [place] [address] Jan, [facility] [address] [id number] [address] [place] [address], [place] [address] Jan, [facility] [address] [id number] [address] [place] [address], [place] [address] Nov, [facility] [address] [id number] [address] [place] [address], [place] [address] Mar, [facility] [address] [id number] [address] [place] [address], [place] [address] Mar, [facility] [address] [id number] [address] [place] [address], [place] [address] 30 Feb, 2010 [facility] [address] [id number] [address] [place] [address], [place] [address] 15 Feb, 2010 [facility] [address] [id number] [address] [place] [address], [place] [address] 19 Jan, 2010 [facility] [address] [id number] [address] [place] [address] Jan, [facility] [place] [address] [id number] [address] [place] [address] Sep, [facility] [place] [address] [id number] [address] [place] [address] May, [facility] [place] [address] [id number] [address] [place] [address] Apr, [facility] [place] [address] [id number] [address] [place] [address] Mar, [facility] [place] [address] [id number] [address] [place] [address] Feb, [facility] [place] [address] [id number] [address] [place] [address] Feb, [facility] [place] [address] [id number] [address] [place] [address] Feb, [facility] [place] [address] [id number] [address] [place] [address] Jan, [facility] [place] [address] [id number] [address] [place] [address] Jan, [facility] [place] [address] [id number] [address] [place] [address] Jan, [facility] [place] [address] [id number] [address] [place] [address] Jan, [facility] [place] [address] [id number] [address] [place] [address] August, IMMUNIZATIONS No Known Immunizations SOCIAL HISTORY Never Assessed REASON FOR VISIT dm foot exam-VIVIAN CONSULT PLAN OF CARE Activity Details Follow Up 3 Months Reason: VITAL SIGNS Height 65 in 2017-10-25 Blood pressure systolic 106 mmHg 2017-10-25 Blood pressure diastolic 72 mmHg 2017-10-25 MEDICATIONS Unknown Medications RESULTS No Results PROCEDURES Procedure Date Ordered Result Body Site DEBRIDE NAIL, 6 OR MORE October 25, 2017 INSTRUCTIONS MEDICATIONS ADMINISTERED No Known Medications [...] age 6 Hospitalization History surgery Hospitalization History [facility], [facility] treatment few times for BH
--- OUTSIDE RECORDS SUMMARY | 2019-09-29 11:01 | XMS REPORT ---
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 Name Role Phone JEET ALANIZ Unavailable PROBLEMS Type Condition ICD9-CM Code NIY37-MY Code Onset Dates Condition S tatus SNOMED Code Problem Diabetes E11.9 Active 65132879 Problem Intermittent explosive disorder in adult F63.81 Active 77532115 Problem Bipolar disorder, in partial remission, most rec ent episode manic F31.73 Active 08613672 Problem Neuropathy G62.9 Active 866437064 Problem Other diabetic neurological complication associated with type 2 diabetes mellitus E11.49 Active 938097817 Problem Mild intellectual disability F70 A ctive 38315056 Problem Bipolar disorder, unspecified F31.9 Active 88323818 Problem Gastroesophageal reflux disease without esophagitis K21.9 Active 529041169 Problem Reactive airway disease, mild intermittent, uncomplicated J45.20 Active 763964666 Problem Adjustment disorder, unspecified type F43.20 Active 28891193 Problem Open-angle glaucoma of both eyes, unspecified glaucoma stage, unspecified open-angle glaucoma type H40.10X0 Acti ve 69845035 Problem 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 Active 98286994 Problem Reactive airway disease, unspecified asthma justin rity, uncomplicated J45.909 Active 883530345820 Problem Essential hypertension I10 Active 26802983 Problem Type 2 diabetes mellitus with complication E11.8 Active 92440334 Problem Hypertensive retinopathy of both eyes H35.033 Active 4474180 Problem Intermittent explosive disorder F63.81 Active 05859960 Problem Obstructive sleep apnea G47.33 Active 64140861 Problem Depression F32.9 Active 98898040 ALLERGIES No Information ENCOUNTERS Encounter Location Date Diagnosis [facility] [address] [facility] [id number] [address] [place] [address] Apr, [facility] [address] [facility] [id number] [address] [place] [address] Jan, [facility] [address] [facility] [id number] [address] [place] [address] Nov, Type 2 diabetes mellitus wit h complication E11.8 [facility] [address] [facility] [id number] [address] [place] [address] Nov, [facility] [address] [facility] [id number] [address] [place] [address] Oct, Intermittent explosive disor salvatore in adult F63.81 ; Bipolar disorder, unspecified F31.9 and Mild intellectual disability F70 [facility] [address] [facility] [id number] [address] [place] [address] Oct, [facility] [address] [facility] [id number] [address] [place] [address] [id number] Oct, Dental examination Z01.20 [facility] [address] [facility] [id number] [address] [place] [address] Oct, Onychomycosis B35.1 and Othe r diabetic neurological complication associated with type 2 diabetes mellitus E11.49 [facility] [address] [facility] [id number] [address] [place] [address] Sep, Type 2 diabetes mellitus wit h complication E11.8 and Colon cancer screening Z12.11 [facility] [address] [facility] [id number] [address] [place] [address] Sep, Type 2 diabetes mellitus wit h complication E11.8 ; Colon cancer screening Z12.11 and Neuropathy G62.9 [facility] [address] [facility] [id number] [address] [place] [address] August, Diabetes E11.9 [facility] [address] [facility] [id number] [address] [place] [address] [id number] Jul, Dental examination Z01.20 [facility] [address] [facility] [id number] [address] [place] [address] May, Mild intellectual disability F70 [facility] [address] [facility] [id number] [address] [place] [address] 07 May, 2017 Mild intellectual disability F70 ; High risk medication use Z79.899 ; Intermittent explosive disorder in adult F63.81 and Bipolar disorder, unspecified F31.9 [facility] [address] [facility] [id number] [address] [place] [id number] 05 May, 2017 [facility] [address] [facility] [id number] [address] [place] [phone] May, [facility] [address] [facility] [id number] [address] [place] [address] Apr, Type 2 diabetes mellitus wit h complication E11.8 ; Mild intellectual disability F70 ; Gastroesophageal reflux disease without esophagitis K21.9 ; Reactive airway disease, mild intermittent, uncomplicated J45.20 and Tobacco abuse Z72.0 [facility] [address] [facility] [id number] [address] [place] [address] Apr, High risk medication use Z79 .899 ; Mild intellectual disability F70 ; Intermittent explosive disorder in adult F63.81 and Bipolar disorder, unspecified F31.9 [facility] [address] [place] [id number] [place] [address] [id number] Mar, Encounter for dental exam an d cleaning w/o abnormal findings Z01.20 [facility] [address] [id number] [address] [place] [address] [id number] Mar, Dental examination Z01.20 [facility] [address] [facility] [id number] [address] [place] [address] Jan, [facility] [address] [facility] [id number] [address] [place] [phone] Jan, [facility] [address] [facility] [id number] [address] [place] [address] Jan, Mild intellectual disability F70 ; Bipolar disorder, unspecified F31.9 and Intermittent explosive disorder in adult F63.81 [place] [id number] [place] [id number] [address] [place] [address] 02 Jan, 2017 Diabetes E11.9 [facility] [address] [id number] [address] [place] [address] [id number] 13 Dec, 2016 Encounter for dental examina tion and cleaning without abnormal findings Z01.20 [facility] [address] [id number] [address] [place] [id number] 12 Dec, 2016 Bipolar disorder, unspecifie d F31.9 ; Intermittent explosive disorder in adult F63.81 and Mild intellectual disability F70 [facility] [address] [id number] [address] [place] [address] Nov, Diabetes E11.9 [facility] [address] [id number] [address] [place] [phone] Nov, [facility] [address] [facility] [id number] [address] [place] [address] Nov, Diabetes E11.9 and Colon can cer screening Z12.[id number] [place] [address] [id number] Sep, Dental examination Z01.20 [facility] [address] [facility] [id number] [address] [place] [address] [id number] 21 Sep, 2016 Encounter for dental examina tion and cleaning without abnormal findings Z01.20 [facility] [address] [id number] [address] [place] [phone] Sep, Bipolar disorder, unspecifie d F31.9 [facility] [address] [id number] [address] [place] [address] Sep, Bipolar disorder, unspecifie d F31.9 [facility] [address] [id number] [address] [place] [address] Jul, [facility] [address] [facility] [id number] [address] [place] [address] Jul, Type 2 diabetes mellitus wit h complication E11.8 [facility] [address] [id number] [address] [place] [address] [id number] 15 Jun, 2016 Encounter for dental examina tion and cleaning without abnormal findings Z01.20 [facility] [address] [id number] [id number] 15 Jun, 2016 Dental examination Z01.20 [facility] [address] [id number] [address] [place] [address] 18 Apr, 2016 Sports physical Z02.5 [facility] [address] [id number] [address] [place] [id number] 14 Mar, 2016 Bipolar disorder, in partial remission, most recent episode manic F31.73 and Intermittent explosive disorder in adult F63.81 [facility] [address] [id number] [address] [place] [phone] 08 Mar, 2016 [facility] [address] [facility] [id number] [address] [place] [address] 06 Mar, 2016 Diabetes E11.9 [facility] [address] [id number] [address] [place] [address] [id number] Feb, Encounter for dental examina tion and cleaning without abnormal findings Z01.20 [facility] [address] [id number] [address] [place] [address] 22 Dec, 2015 Nocturnal hypoxemia G47.34 a nd Encounter for immunization Z23 [facility] [address] [id number] [address] [place] [address] 15 Dec, 2015 [facility] [address] [id number] [address] [place] [address] Dec, [facility] [address] [id number] [address] [place] [address] Dec, Bipolar disorder, unspecifie d F31.9 [facility] [address] [id number] [address] [place] [address] [id number] Oct, Encounter for dental examina tion and cleaning without abnormal findings Z01.[address] [facility] [address] [id number] [id number] Oct, Dental examination Z01.20 [place] [address] [facility] [id number] [address] [place] [address] Oct, Diabetes E11.9 [place] [address] [facility] [id number] [address] [place] [address] Oct, Diabetes E11.9 ; Reactive ai rway disease, mild intermittent, uncomplicated J45.20 and Tobacco abuse Z72.0 [place] [address] [place] [id number] [address] [place] [address] Sep, Bipolar disorder, unspecifie d F31.9 and Depression F32.9 [place] [address] [place] [id number] [address] [place] [address] Sep, [place] [address] [address] August, Tinea pedis of both feet B35 .3 and DM w/o complication type II, uncontrolled E11.65 [place] [address] [place] [id number] [address] [place] [address] Jul, [place] [address] [place] [id number] [address] [place] [address] Jul, [place] [address] [place] [id number] [address] [place] [address] Jul, Obstructive sleep apnea G47. 33 [place] [address] [facility] [id number] [address] [place] [phone] Jun, Diabetes E11.9 [place] [address] [facility] [id number] [address] [place] [address] Jun, [place] [address] [facility] [id number] [address] [place] [address] Jun, [place] [address] [place] [id number] [address] [place] [address] Jun, Bipolar disorder, unspecifie d F31.9 and Mental retardation F79 [place] [address] [place] [id number] [address] [place] [address] Apr, [place] [address] [address] Feb, Diabetes E11.9 ; Encounter f or immunization Z23 ; Cough R05 and Nicotine abuse Z72.0 [place] [address] [address] Jan, Bipolar disorder, unspecifie d F31.9 and Diabetes mellitus without mention of complication, type II or unspecified type, uncontrolled 250.02 [place] [address] [address] Jan, [place] [address] [address] Dec, Reactive airway disease 493. 90 and Enuresis 788.30 [place] [address] [address] Dec, [place] [address] [address] Nov, [place] [address] [address] Nov, [place] [address] [address] Nov, Annual physical exam V70.0 ; Urinary incontinence 788.30 ; Diabetes 250.00 and Hypertension 401.9 [place] [address] [place] [id number] [address] [place] [address] Oct, Diabetes mellitus without me ntion of complication, type II or unspecified type, uncontrolled 250.02 [place] [address] [place] [id number] [address] [place] [address] Oct, Diabetes mellitus without me ntion of complication, type II or unspecified type, uncontrolled 250.02 [place] [address] [place] [address] Oct, Diabetes mellitus without me ntion of complication, type II or unspecified type, uncontrolled 250.02 [facility] [address] [id number] [address] [place] [address] Oct, [facility] [address] [id number] [address] [place] [address] Oct, [facility] [address] [id number] [address] [place] [address] Oct, Bipolar disorder, unspecifie d 296.80 [facility] [address] [id number] [place] [address] [id number] Sep, Dental examination V72.2 [facility] [address] [id number] [address] [place] [phone] August, [facility] [address] [id number] [place] [address] [id number] August, Dental examination V72.2 [facility] [address] [id number] [address] [place] [address] August, [facility] [address] [id number] [address] [place] [address] Jul, [facility] [address] [id number] [address] [place] [address] Jul, [facility] [address] [id number] [address] [place] [address] Jun, [facility] [address] [id number] [address] [place] [address] Jun, [facility] [address] [id number] [address] [place] [address] Jun, [facility] [address] [id number] [address] [place] [address] Jun, [facility] [address] [id number] [address] [place] [address] b, 2014 [facility] [place] [facility] [address] [id number] [address] [place] [address], [place] [address] 23 May, 2014 [facility] [place] [facility] [address] [id number] [address] [place] [address], [place] [address] 16 May, 2014 [facility] [place] [facility] [address] [id number] [address] [place] [address], [place] [address] 16 May, 2014 [facility] [place] [facility] [address] [id number] [address] [place] [address], [place] [address] 16 May, 2014 [facility] [place] [facility] [address] [id number] [address] [place] [address], [place] [address] 16 May, 2014 [facility] [place] [facility] [address] [id number] [address] [place] [address], [place] [address] 16 May, 2014 [facility] [place] [facility] [address] [id number] [address] [place] [address], [place] [address] 16 May, 2014 [facility] [place] [facility] [address] [id number] [address] [place] [address], [place] [address] 16 May, 2014 [facility] [place] [facility] [address] [id number] [address] [place] [address], [place] [address] 16 May, 2014 [facility] [place] [facility] [address] [id number] [address] [place] [address], [place] [address] 16 May, 2014 [facility] [place] [facility] [address] [id number] [address] [place] [address], [place] [address] 16 May, 2014 [facility] [place] [facility] [address] [id number] [address] [place] [address], [place] [address] 16 May, 2014 [facility] [place] [facility] [address] [id number] [address] [place] [address], [place] [address] 16 May, 2014 [facility] [place] [facility] [address] [id number] [address] [place] [address], [place] [address] 16 May, 2014 [facility] [place] [facility] [address] [id number] [address] [place] [address], [place] [address] Apr, [facility] [address] [id number] [address] [place] [address], [place] [address] Apr, [facility] [address] [id number] [address] [place] [address], [place] [address] Apr, [facility] [address] [id number] [address] [place] [address], [place] [address] Apr, [facility] [address] [id number] [address] [place] [address], [place] [address] Apr, [facility] [address] [id number] [address] [place] [address], [place] [address] Apr, [facility] [address] [id number] [address] [place] [address], [place] [address] Apr, [facility] [address] [id number] [address] [place] [address], [place] [address] Apr, [facility] [address] [id number] [address] [place] [address], [place] [address] Apr, [facility] [address] [id number] [address] [place] [address], [place] [address] Apr, [facility] [address] [id number] [address] [place] [address], [place] [address] Apr, [facility] [address] [id number] [address] [place] [address], [place] [address] Apr, [facility] [address] [id number] [address] [place] [address], [place] [address] Mar, [facility] [address] [id number] [address] [place] [address], [place] [address] Mar, [facility] [address] [id number] [address] [place] [address], [place] [address] Mar, [facility] [address] [id number] [address] [place] [address], [place] [address] Mar, [facility] [address] [id number] [address] [place] [address], [place] [address] 10 Mar, 2014 [facility] [place] [facility] [address] [id number] [address] [place] [address], [place] [address] 10 Mar, 2014 [facility] [place] [facility] [address] [id number] [address] [place] [address], [place] [address] Feb, [facility] [place] [facility] [address] [id number] [address] [place] [address], [place] [address] Feb, [facility] [place] [facility] [address] [id number] [address] [place] [address], [place] [address] Feb, [facility] [place] [facility] [address] [id number] [address] [place] [address], [place] [address] Feb, [facility] [place] [facility] [address] [id number] [address] [place] [address], [place] [address] 14 Jan, 2014 [facility] [place] [facility] [address] [id number] [address] [place] [address], [place] [address] 14 Jan, 2014 [facility] [place] [facility] [address] [id number] [address] [place] [address], [place] [address] 14 Jan, 2014 [facility] [place] [facility] [address] [id number] [address] [place] [address], [place] [address] 14 Jan, 2014 [facility] [place] [facility] [address] [id number] [address] [place] [address], [place] [address] 22 Dec, 2013 [facility] [place] [facility] [address] [id number] [address] [place] [address], [place] [address] 22 Dec, 2013 [facility] [place] [facility] [address] [id number] [address] [place] [address], [place] [address] 15 Dec, 2013 [facility] [place] [facility] [address] [id number] [address] [place] [address], [place] [address] 15 Dec, 2013 [facility] [place] [facility] [address] [id number] [address] [place] [address], [place] [address] Nov, [facility] [place] [facility] [address] [id number] [address] [place] [address], [place] [address] 14 Nov, 2013 [facility] [place] [facility] [address] [id number] [facility] [place] [address] Nov, [facility] [address] [id number] [facility] [place] [address] Nov, [facility] [place] [facility] [address] [id number] [facility] [place] [address] Nov, [facility] [place] [facility] [address] [id number] [facility] [place] [address] Nov, [facility] [place] [facility] [address] [id number] [facility] [place] [address] Nov, [facility] [place] [facility] [address] [id number] [address] [place] [address], [place] [address] Oct, [facility] [place] [facility] [address] [id number] [address] [place] [address], [place] [address] Oct, [facility] [address] [id number] [address] [place] [address], [place] [address] Oct, [facility] [address] [id number] [address] [place] [address], [place] [address] Oct, [facility] [address] [id number] [address] [place] [address], [place] [address] Oct, [facility] [address] [id number] [address] [place] [address], [place] [address] Oct, [facility] [address] [id number] [address] [place] [address], [place] [address] Oct, [facility] [address] [id number] [address] [place] [address], [place] [address] Sep, [facility] [address] [id number] [address] [place] [address], [place] [address] Sep, [facility] [address] [id number] [address] [place] [address], [place] [address] Sep, [facility] [address] [id number] [address] [place] [address], [place] [address] Sep, [facility] [address] [id number] [facility] [place] [address] Sep, [facility] [address] [id number] [facility] [place] [address] Jul, [facility] [address] [id number] [address] [place] [address], [place] [address] Jul, [facility] [address] [id number] [address] [place] [address], [place] [address] Jul, [facility] [address] [id number] [address] [place] [address], [place] [address] Jul, [facility] [address] [id number] [address] [place] [address], [place] [address] Jul, [facility] [address] [id number] [address] [place] [address], [place] [address] Jul, [facility] [address] [id number] [address] [place] [address], [place] [address] Jul, [facility] [address] [id number] [address] [place] [address], [place] [address] Jul, [facility] [address] [id number] [address] [place] [address], [place] [address] Jul, [facility] [address] [id number] [address] [place] [address], [place] [address] Jul, [facility] [address] [id number] [address] [place] [address], [place] [address] Jul, [facility] [address] [id number] [address] [place] [address], [place] [address] Jul, [facility] [address] [id number] [address] [place] [address], [place] [address] Jun, [facility] [address] [id number] [address] [place] [address], [place] [address] Jun, [facility] [address] [id number] [facility] [place] [address] Jun, [facility] [address] [id number] [address] [place] [address], [place] [address] Jun, [facility] [address] [id number] [address] [place] [address], [place] [address] Jun, [facility] [address] [id number] [address] [place] [address], [place] [address] Jun, [facility] [address] [id number] [address] [place] [address], [place] [address] Jun, [facility] [address] [id number] [address] [place] [address], [place] [address] Jun, [facility] [address] [id number] [address] [place] [address], [place] [address] May, [facility] [address] [id number] [address] [place] [address], [place] [address] May, [facility] [address] [id number] [address] [place] [address], [place] [address] May, [facility] [address] [id number] [address] [place] [address], [place] [address] May, [facility] [address] [id number] [address] [place] [address], [place] [address] May, [facility] [address] [id number] [address] [place] [address], [place] [address] May, [facility] [address] [id number] [address] [place] [address], [place] [address] May, [facility] [address] [id number] [address] [place] [address], [place] [address] May, [facility] [address] [id number] [address] [place] [address], [place] [address] Apr, [facility] [address] [id number] [address] [place] [address], [place] [address] Apr, [facility] [address] [id number] [address] [place] [address], [place] [address] Apr, [facility] [address] [id number] [address] [place] [address], [place] [address] Apr, [facility] [address] [id number] [address] [place] [address], [place] [address] Mar, [facility] [address] [id number] [address] [place] [address], [place] [address] Mar, [facility] [address] [id number] [address] [place] [address], [place] [address] Mar, [facility] [address] [id number] [address] [place] [address], [place] [address] Feb, [facility] [address] [id number] [address] [place] [address], [place] [address] Feb, [facility] [address] [id number] [address] [place] [address], [place] [address] Feb, [facility] [address] [id number] [address] [place] [address], [place] [address] Feb, [facility] [address] [id number] [address] [place] [address], [place] [address] Feb, [facility] [address] [id number] [address] [place] [address], [place] [address] Feb, [facility] [address] [id number] [address] [place] [address], [place] [address] Jan, [facility] [address] [id number] [address] [place] [address], [place] [address] Jan, [facility] [address] [id number] [address] [place] [address], [place] [address] Jan, [facility] [address] [id number] [address] [place] [address], [place] [address] Jan, [facility] [address] [id number] [address] [place] [address], [place] [address] Jan, [facility] [address] [id number] [address] [place] [address], [place] [address] Jan, [facility] [address] [id number] [address] [place] [address], [place] [address] Jan, [facility] [address] [id number] [address] [place] [address], [place] [address] Dec, [facility] [address] [id number] [address] [place] [address], [place] [address] 16 Dec, 2012 [facility] [address] [id number] [address] [place] [address], [place] [address] Dec, [facility] [address] [id number] [address] [place] [address], [place] [address] Dec, [facility] [address] [id number] [address] [place] [address], [place] [address] Nov, [facility] [address] [id number] [address] [place] [address], [place] [address] Nov, [facility] [address] [id number] [address] [place] [address], [place] [address] Nov, [facility] [address] [id number] [address] [place] [address], [place] [address] Nov, [facility] [address] [id number] [address] [place] [address], [place] [address] Nov, [facility] [address] [id number] [address] [place] [address], [place] [address] Nov, [facility] [address] [id number] [address] [place] [address], [place] [address] Nov, [facility] [address] [id number] [address] [place] [address], [place] [address] Oct, [facility] [address] [id number] [address] [place] [address], [place] [address] Oct, [facility] [address] [id number] [address] [place] [address], [place] [address] Oct, [facility] [address] [id number] [address] [place] [address], [place] [address] Oct, [facility] [address] [id number] [address] [place] [address], [place] [address] Oct, [facility] [address] [id number] [address] [place] [address], [place] [address] Oct, [facility] [address] [id number] [address] [place] [address], [place] [address] Oct, [facility] [address] [id number] [address] [place] [address], [place] [address] Oct, [facility] [address] [id number] [address] [place] [address], [place] [address] Sep, [facility] [id number] [place] [id number] August, [facility] [address] [id number] [address] [place] [address], [place] [address] August, [facility] [address] [id number] [address] [place] [address], [place] [address] Jul, [facility] [address] [id number] [address] [place] [address], [place] [address] Jul, [facility] [address] [id number] [address] [place] [address], [place] [address] Jul, [facility] [address] [id number] [address] [place] [address], [place] [address] Jul, [facility] [address] [id number] [address] [place] [address], [place] [address] Jul, [facility] [address] [id number] [address] [place] [address], [place] [address] Jul, [facility] [address] [id number] [address] [place] [address], [place] [address] 16 Jul, 2012 [facility] [address] [id number] [address] [place] [address], [place] [address] Jun, [facility] [address] [id number] [address] [place] [address], [place] [address] 18 Jun, 2012 [facility] [address] [id number] [address] [place] [address], [place] [address] Jun, [facility] [address] [id number] [address] [place] [address], [place] [address] 04 Jun, 2012 [facility] [address] [id number] [address] [place] [address], [place] [address] 04 Jun, 2012 [facility] [address] [id number] [address] [place] [address], [place] [address] 19 May, 2012 [facility] [address] [id number] [address] [place] [address], [place] [address] 18 May, 2012 [facility] [address] [id number] [address] [place] [address], [place] [address] 04 May, 2012 [facility] [address] [id number] [address] [place] [address], [place] [address] 15 Apr, 2012 [facility] [address] [id number] [address] [place] [address], [place] [address] 14 Apr, 2012 [facility] [address] [id number] [address] [place] [address], [place] [address] 07 Apr, 2012 [facility] [address] [id number] [address] [place] [address], [place] [address] Mar, [facility] [address] [id number] [address] [place] [address], [place] [address] Mar, [facility] [address] [id number] [address] [place] [address], [place] [address] 13 Mar, 2012 [facility] [address] [id number] [address] [place] [address], [place] [address] Mar, [facility] [address] [id number] [address] [place] [address], [place] [address] Mar, [facility] [address] [id number] [address] [place] [address], [place] [address] Mar, [facility] [address] [id number] [address] [place] [address], [place] [address] Feb, [facility] [address] [id number] [address] [place] [address], [place] [address] Feb, [facility] [address] [id number] [address] [place] [address], [place] [address] Jan, [facility] [address] [id number] [address] [place] [address], [place] [address] Jan, [facility] [address] [id number] [address] [place] [address], [place] [address] Dec, [facility] [address] [id number] [address] [place] [address], [place] [address] Nov, [facility] [address] [id number] [address] [place] [address], [place] [address] Nov, [facility] [address] [id number] [address] [place] [address], [place] [address] Nov, [facility] [address] [id number] [address] [place] [address], [place] [address] Nov, [facility] [address] [id number] [address] [place] [address], [place] [address] Oct, [facility] [address] [id number] [address] [place] [address], [place] [address] Oct, [facility] [address] [id number] [address] [place] [address], [place] [address] Oct, [facility] [address] [id number] [address] [place] [address], [place] [address] Sep, [facility] [address] [id number] [address] [place] [address], [place] [address] 14 Sep, 2011 [facility] [address] [id number] [address] [place] [address], [place] [address] Sep, [facility] [address] [id number] [address] [place] [address], [place] [address] August, [facility] [address] [id number] [address] [place] [address], [place] [address] August, [facility] [address] [id number] [address] [place] [address], [place] [address] Jul, [facility] [address] [id number] [address] [place] [address], [place] [address] Jul, [facility] [address] [id number] [address] [place] [address], [place] [address] Jul, [facility] [address] [id number] [address] [place] [address], [place] [address] Jul, [facility] [address] [id number] [address] [place] [address], [place] [address] Jun, [facility] [address] [id number] [address] [place] [address], [place] [address] May, [facility] [address] [id number] [address] [place] [address], [place] [address] Apr, [facility] [address] [id number] [address] [place] [address], [place] [address] Apr, [facility] [address] [id number] [address] [place] [address], [place] [address] Apr, [facility] [address] [id number] [address] [place] [address], [place] [address] Apr, [facility] [address] [id number] [address] [place] [address], [place] [address] Apr, [facility] [address] [id number] [address] [place] [address], [place] [address] Apr, [facility] [address] [id number] [address] [place] [address], [place] [address] Mar, [facility] [address] [id number] [address] [place] [address], [place] [address] Mar, [facility] [address] [id number] [address] [place] [address], [place] [address] 29 Feb, 2011 [facility] [address] [id number] [address] [place] [address], [place] [address] Feb, [facility] [address] [id number] [address] [place] [address], [place] [address] Feb, [facility] [address] [id number] [address] [place] [address], [place] [address] Feb, [facility] [address] [id number] [address] [place] [address], [place] [address] Jan, [facility] [address] [id number] [address] [place] [address], [place] [address] Jan, [facility] [address] [id number] [address] [place] [address], [place] [address] Jan, [facility] [address] [id number] [address] [place] [address], [place] [address] Jan, [facility] [address] [id number] [address] [place] [address], [place] [address] Nov, [facility] [address] [id number] [address] [place] [address], [place] [address] Mar, [facility] [address] [id number] [address] [place] [address], [place] [address] Mar, [facility] [address] [id number] [address] [place] [address], [place] [address] 30 Feb, 2010 [facility] [address] [id number] [address] [place] [address], [place] [address] 15 Feb, 2010 [facility] [address] [id number] [address] [place] [address], [place] [address] Jan, [facility] [address] [id number] [address] [place] [id number] Jan, [facility] [address] [id number] [address] [place] [address] Sep, [facility] [address] [id number] [address] [place] [address] 16 May, 2009 [facility] [address] [id number] [address] [place] [id number] Apr, [facility] [address] [id number] [address] [place] [id number] Mar, [facility] [address] [id number] [address] [place] [address] Feb, [facility] [address] [id number] [address] [place] [address] Feb, [facility] [address] [id number] [address] [place] [address] Feb, [facility] [address] [id number] [address] [place] [id number] Jan, [facility] [address] [id number] [address] [place] [id number] Jan, [facility] [address] [id number] [address] [place] [id number] Jan, [facility] [address] [id number] [address] [place] [id number] Jan, [facility] [address] [id number] [address] [place] [id number] August, IMMUNIZATIONS No Known Immunizations SOCIAL HISTORY Never Assessed REASON FOR VISIT Requests return call PLAN OF CARE VITAL SIGNS MEDICATIONS Unknown [...] age 6 Hospitalization History surgery Hospitalization History [facility], [facility] treatment few times for BH
--- OUTSIDE RECORDS SUMMARY | 2019-09-29 11:01 | XMS REPORT ---
Author Author Cameron ALANIZ Organization [facility] Address [address] [place] [address] Care Team Providers Care Head Paper Tester Name Role Phone JEET ALANIZ Unavailable PROBLEMS Type Condition ICD9-CM Code WPD10-BF Code Onset Dates Condition S tatus SNOMED Code Problem Diabetes E11.9 Active 18464399 Problem Intermittent explosive disorder in adult F63.81 Active 56742392 Problem Bipolar disorder, in partial remission, most rec ent episode manic F31.73 Active 43112584 Problem Neuropathy G62.9 Active 230354444 Problem Other diabetic neurological complication associated with type 2 diabetes mellitus E11.49 Active 886089338 Problem Mild intellectual disability F70 A ctive 26670119 Problem Bipolar disorder, unspecified F31.9 Active 85394565 Problem Gastroesophageal reflux disease without esophagitis K21.9 Active 787540098 Problem Reactive airway disease, mild intermittent, uncomplicated J45.20 Active 582369980 Problem Adjustment disorder, unspecified type F43.20 Active 17374397 Problem Open-angle glaucoma of both eyes, unspecified glaucoma stage, unspecified open-angle glaucoma type H40.10X0 Acti ve 99292298 Problem 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 [address] [facility] [id number] [address] [place] [address] Apr, [facility] [address] [facility] [id number] [address] [place] [id number] Jan, [facility] [address] [facility] [id number] [address] [place] [id number] Nov, [facility] [address] [facility] [id number] [address] [place] [id number] Oct, Intermittent explosive disor salvatore in adult F63.81 ; Bipolar disorder, unspecified F31.9 and Mild intellectual disability F70 [facility] [address] [facility] [id number] [address] [place] [id number] Oct, [facility] [address] [facility] [id number] [address] [place] [address] [id number] Oct, Dental examination Z01.20 [place] [address] [facility] [id number] [address] [place] [id number] Oct, Onychomycosis B35.1 and Othe r diabetic neurological complication associated with type 2 diabetes mellitus E11.49 [place] [address] [facility] [id number] [address] [place] [id number] Sep, Type 2 diabetes mellitus wit h complication E11.8 and Colon cancer screening Z12.11 [place] [address] [facility] [id number] [address] [place] [address] Sep, Type 2 diabetes mellitus wit h complication E11.8 ; Colon cancer screening Z12.11 and Neuropathy G62.9 [place] [address] [facility] [id number] [address] [place] [phone] August, Diabetes E11.9 [facility] [address] [id number] [address] [place] [id number] Jul, Dental examination Z01.20 [facility] [address] [facility] [id number] [address] [place] [id number] 27 May, 2017 Mild intellectual disability F70 [facility] [address] [facility] [id number] [address] [place] [id number] 07 May, 2017 Mild intellectual disability F70 ; High risk medication use Z79.899 ; Intermittent explosive disorder in adult F63.81 and Bipolar disorder, unspecified F31.9 [facility] [address] [id number] [address] [place] [id number] 05 May, 2017 [facility] [address] [id number] [address] [place] [phone] May, [facility] [address] [id number] [address] [place] [phone] Apr, Type 2 diabetes mellitus wit h complication E11.8 ; Mild intellectual disability F70 ; Gastroesophageal reflux disease without esophagitis K21.9 ; Reactive airway disease, mild intermittent, uncomplicated J45.20 and Tobacco abuse Z72.0 [facility] [address] [id number] [address] [place] [id number] Apr, High risk medication use Z79 .899 ; Mild intellectual disability F70 ; Intermittent explosive disorder in adult F63.81 and Bipolar disorder, unspecified F31.9 [facility] [address] [id number] [address] [place] [address] [id number] Mar, Encounter for dental exam an d cleaning w/o abnormal findings Z01.20 [facility] [address] [id number] [address] [place] [address] [id number] Mar, Dental examination Z01.20 [facility] [address] [id number] [address] [place] [id number] 12 Jan, 2017 [facility] [address] [id number] [address] [place] [id number] Jan, [facility] [address] [id number] [address] [place] [id number] Jan, Mild intellectual disability F70 ; Bipolar disorder, unspecified F31.9 and Intermittent explosive disorder in adult F63.81 [facility] [address] [id number] [address] [place] [id number] 02 Jan, 2017 Diabetes E11.9 [facility] [address] [id number] [address] [place] [address] [id number] 13 Dec, 2016 Encounter for dental examina tion and cleaning without abnormal findings Z01.20 [facility] [address] [facility] [id number] [address] [place] [id number] 12 Dec, 2016 Bipolar disorder, unspecifie d F31.9 ; Intermittent explosive disorder in adult F63.81 and Mild intellectual disability F70 [facility] [address] [id number] [address] [place] [id number] Nov, Diabetes E11.9 [facility] [address] [id number] [address] [place] [id number] Nov, [facility] [address] [facility] [id number] [address] [place] [id number] Nov, Diabetes E11.9 and Colon can cer screening Z12.[address] [id number] [place] [address] [id number] Sep, Dental examination Z01.20 [facility] [address] [id number] [address] [place] [address] [id number] Sep, Encounter for dental examina tion and cleaning without abnormal findings Z01.20 [facility] [address] [id number] [address] [place] [id number] Sep, Bipolar disorder, unspecifie d F31.9 [facility] [address] [id number] [address] [place] [id number] Sep, Bipolar disorder, unspecifie d F31.9 [facility] [address] [id number] [address] [place] [id number] Jul, [facility] [address] [id number] [address] [place] [id number] Jul, Type 2 diabetes mellitus wit h complication E11.8 [facility] [address] [id number] [address] [place] [address] [id number] Jun, Encounter for dental examina tion and cleaning without abnormal findings Z01.20 [facility] [address] [id number] [id number] 15 Jun, [address] [facility] [address] [id number] [address] [place] [id number] 18 Apr, [address] [facility] [address] [id number] [address] [place] [id number] 14 Mar, 2016 Bipolar disorder, in partial remission, most recent episode manic F31.73 and Intermittent explosive disorder in adult F63.81 [facility] [address] [id number] [address] [place] [id number] [address] Mar, 2016 [facility] [address] [id number] [address] [place] [id number] 06 Mar, 2016 Diabetes E11.9 [facility] [address] [id number] [address] [place] [address] [id number] Feb, Encounter for dental examina tion and cleaning without abnormal findings Z01.20 [facility] [address] [id number] [address] [place] [id number] 22 Dec, 2015 Nocturnal hypoxemia G47.34 a nd Encounter for immunization Z23 [facility] [address] [id number] [address] [place] [id number] [address], [address] [facility] [address] [id number] [address] [place] [id number] Dec, [facility] [address] [id number] [address] [place] [id number] Dec, Bipolar disorder, unspecifie d F31.9 [facility] [address] [id number] [address] [place] [id number] Oct, Encounter for dental examina tion and cleaning without abnormal findings Z01.20 [facility] [address] [id number] [id number] Oct, Dental examination Z01.20 [facility] [address] [id number] [address] [place] [id number] Oct, Diabetes E11.9 [facility] [address] [id number] [address] [place] [phone] Oct, Diabetes E11.9 ; Reactive ai rway disease, mild intermittent, uncomplicated J45.20 and Tobacco abuse Z72.0 [facility] [address] [facility] [id number] [address] [place] [id number] Sep, Bipolar disorder, unspecifie d F31.9 and Depression F32.9 [place] [address] [facility] [id number] [address] [place] [id number] Sep, [place] [address] [facility] [id number] [address] [place] [phone] August, Tinea pedis of both feet B35 .3 and DM w/o complication type II, uncontrolled E11.65 [place] [address] [facility] [id number] [address] [place] [phone] Jul, [facility] [address] [facility] [id number] [address] [place] [id number] Jul, [facility] [address] [facility] [id number] [address] [place] [id number] Jul, Obstructive sleep apnea G47. 33 [facility] [address] [facility] [id number] [address] [place] [id number] Jun, Diabetes E11.9 [facility] [address] [facility] [id number] [address] [place] [id number] Jun, [facility] [address] [facility] [id number] [address] [place] [phone] Jun, [facility] [address] [facility] [id number] [address] [place] [id number] Jun, Bipolar disorder, unspecifie d F31.9 and Mental retardation F79 [facility] [address] [facility] [id number] [address] [place] [id number] Apr, [place] [address] [id number] Feb, Encounter for immunization Z 23 ; Diabetes E11.9 ; Cough R05 and Nicotine abuse Z72.0 [place] [address] [address] Jan, Bipolar disorder, unspecifie d F31.9 and Diabetes mellitus without mention of complication, type II or unspecified type, uncontrolled 250.02 [place] [address] [address] Jan, [place] [address] [address] Dec, Reactive airway disease 493. 90 and Enuresis 788.30 [place] [address] [id number] Dec, [place] [address] [id number] Nov, [place] [address] [address] Nov, [address] [address] Nov, Annual physical exam V70.0 ; Urinary incontinence 788.30 ; Diabetes 250.00 and Hypertension 401.[address] [address] Oct, Diabetes mellitus without me ntion of complication, type II or unspecified type, uncontrolled 250.02 [place] [address] [id number] Oct, Diabetes mellitus without me ntion of complication, type II or unspecified type, uncontrolled 250.02 [place] [address] [id number] Oct, Diabetes mellitus without me ntion of complication, type II or unspecified type, uncontrolled 250.02 [facility] [address] [id number] [address] [place] [id number] Oct, [facility] [address] [id number] [address] [place] [id number] Oct, [facility] [address] [id number] [address] [place] [id number] Oct, Bipolar disorder, unspecifie d 296.80 [facility] [address] [id number] [address] [place] [id number] Sep, Dental examination V72.2 [facility] [address] [id number] [address] [place] [id number] August, [facility] [address] [id number] [address] [place] [address] [id number] August, Dental examination V72.2 [facility] [address] [id number] [address] [place] [id number] August, [facility] [address] [id number] [address] [place] [id number] Jul, [facility] [address] [id number] [address] [place] [id number] Jul, [facility] [address] [id number] [address] [place] [id number] Jun, [facility] [address] [id number] [address] [place] [id number] Jun, [facility] [address] [id number] [address] [place] [id number] Jun, [facility] [address] [id number] [address] [place] [phone] Jun, [facility] [address] [id number] [address] [place] [phone] May, [facility] [address] [id number] [address] [place] [phone] May, [facility] [address] [id number] [address] [place] [address], [place] [address] 16 May, 2014 [facility] [address] [id number] [address] [place] [address], [place] [address] 16 May, 2014 [facility] [address] [id number] [address] [place] [address], [place] [address] 16 May, 2014 [facility] [address] [id number] [address] [place] [address], [place] [address] May, 2014 [facility] [address] [id number] [address] [place] [address], [place] [address] May, 2014 [facility] [address] [id number] [address] [place] [address], [place] [address] 16 May, 2014 [facility] [address] [id number] [address] [place] [address], [place] [address] 16 May, 2014 [facility] [address] [id number] [address] [place] [address], [place] [address] May, 2014 [facility] [address] [id number] [address] [place] [address], [place] [address] May, 2014 [facility] [address] [id number] [address] [place] [address], [place] [address] 16 May, 2014 [facility] [address] [id number] [address] [place] [address], [place] [address] May, 2014 [facility] [address] [id number] [address] [place] [address], [place] [address] May, 2014 [facility] [address] [id number] [address] [place] [address], [place] [address] May, 2014 [facility] [address] [id number] [address] [place] [address], [place] [address] Apr, [facility] [address] [id number] [address] [place] [address], [place] [address] Apr, [facility] [address] [id number] [address] [place] [address], [place] [address] Apr, [facility] [address] [id number] [address] [place] [address], [place] [address] Apr, [facility] [address] [id number] [address] [place] [address], [place] [address] Apr, [facility] [address] [id number] [address] [place] [address], [place] [address] Apr, [facility] [address] [id number] [address] [place] [address], [place] [address] Apr, [facility] [address] [id number] [address] [place] [address], [place] [address] Apr, [facility] [address] [id number] [address] [place] [address], [place] [address] Apr, [facility] [address] [id number] [address] [place] [address], [place] [address] Apr, [facility] [address] [id number] [address] [place] [address], [place] [address] Apr, [facility] [address] [id number] [address] [place] [address], [place] [address] Apr, [facility] [address] [id number] [address] [place] [address], [place] [address] Mar, [facility] [address] [id number] [address] [place] [address], [place] [address] Mar, [facility] [address] [id number] [address] [place] [address], [place] [address] Mar, [facility] [address] [id number] [address] [place] [address], [place] [address] Mar, [facility] [address] [id number] [address] [place] [address], [place] [address] Mar, [facility] [address] [id number] [address] [place] [address], [place] [address] Mar, [facility] [address] [id number] [address] [place] [address], [place] [address] Feb, [facility] [address] [id number] [address] [place] [address], [place] [address] Feb, [facility] [address] [id number] [address] [place] [address], [place] [address] Feb, [facility] [address] [id number] [address] [place] [address], [place] [address] Feb, [facility] [address] [id number] [address] [place] [address], [place] [address] 14 Jan, 2014 [facility] [address] [id number] [address] [place] [address], [place] [address] 14 Jan, 2014 [facility] [address] [id number] [address] [place] [address], [place] [address] 14 Jan, 2014 [facility] [address] [id number] [address] [place] [address], [place] [address] 14 Jan, 2014 [facility] [address] [id number] [address] [place] [address], [place] [address] 22 Dec, 2013 [facility] [address] [id number] [address] [place] [address], [place] [address] 22 Dec, 2013 [facility] [address] [id number] [address] [place] [address], [place] [address] 15 Dec, 2013 [facility] [address] [id number] [address] [place] [address], [place] [address] 15 Dec, 2013 [facility] [address] [id number] [address] [place] [address], [place] [address] Nov, [facility] [address] [id number] [address] [place] [address], [place] [address] Nov, [facility] [address] [id number] [address] [place] [address], [place] [address] Nov, [facility] [address] [id number] [address] [place] [address] Nov, [facility] [address] [id number] [facility] [place] [address] Nov, [facility] [address] [id number] [address] [place] [address], [place] [address] Nov, [facility] [address] [id number] [address] [place] [address], [place] [address] Nov, [facility] [address] [id number] [address] [place] [address], [place] [address] Oct, [facility] [address] [id number] [address] [place] [address], [place] [address] Oct, [facility] [address] [id number] [address] [place] [address], [place] [address] Oct, [facility] [address] [id number] [address] [place] [address], [place] [address] Oct, [facility] [address] [id number] [address] [place] [address], [place] [address] Oct, [facility] [address] [id number] [address] [place] [address], [place] [address] Oct, [facility] [address] [id number] [address] [place] [address], [place] [address] Oct, [facility] [address] [id number] [address] [place] [address], [place] [address] Sep, [facility] [address] [id number] [address] [place] [address], [place] [address] Sep, [facility] [address] [id number] [address] [place] [address], [place] [address] Sep, [facility] [address] [id number] [address] [place] [address], [place] [address] Sep, [facility] [address] [id number] [address] [place] [address], [place] [address] Sep, [facility] [address] [id number] [address] [place] [address] Jul, [facility] [address] [id number] [facility] [place] [address] Jul, [facility] [address] [id number] [facility] [place] [address] Jul, [facility] [address] [id number] [address] [place] [address], [place] [address] Jul, [facility] [address] [id number] [address] [place] [address], [place] [address] Jul, [facility] [address] [id number] [address] [place] [address], [place] [address] Jul, [facility] [address] [id number] [address] [place] [address], [place] [address] Jul, [facility] [address] [id number] [address] [place] [address], [place] [address] Jul, [facility] [address] [id number] [address] [place] [address], [place] [address] Jul, [facility] [address] [id number] [address] [place] [address], [place] [address] Jul, [facility] [address] [id number] [address] [place] [address], [place] [address] Jul, [facility] [address] [id number] [address] [place] [address], [place] [address] Jul, [facility] [address] [id number] [address] [place] [address], [place] [address] Jun, [facility] [address] [id number] [address] [place] [address], [place] [address] Jun, [facility] [address] [id number] [address] [place] [address], [place] [address] Jun, [facility] [address] [id number] [address] [place] [address], [place] [address] Jun, [facility] [address] [id number] [address] [place] [address] Jun, [facility] [address] [id number] [address] [place] [address], [place] [address] Jun, [facility] [address] [id number] [address] [place] [address], [place] [address] Jun, [facility] [address] [id number] [address] [place] [address], [place] [address] Jun, [facility] [address] [id number] [address] [place] [address], [place] [address] May, [facility] [address] [id number] [address] [place] [address], [place] [address] May, [facility] [address] [id number] [address] [place] [address], [place] [address] May, [facility] [address] [id number] [address] [place] [address], [place] [address] May, [facility] [address] [id number] [address] [place] [address], [place] [address] May, [facility] [address] [id number] [address] [place] [address], [place] [address] May, [facility] [address] [id number] [address] [place] [address], [place] [address] May, [facility] [address] [id number] [address] [place] [address], [place] [address] May, [facility] [address] [id number] [address] [place] [address], [place] [address] Apr, [facility] [address] [id number] [address] [place] [address], [place] [address] Apr, [facility] [address] [id number] [address] [place] [address], [place] [address] Apr, [facility] [address] [id number] [address] [place] [address], [place] [address] Apr, [facility] [address] [id number] [address] [place] [address], [place] [address] Mar, [facility] [address] [id number] [address] [place] [address], [place] [address] Mar, [facility] [address] [id number] [address] [place] [address], [place] [address] Mar, [facility] [address] [id number] [address] [place] [address], [place] [address] Feb, [facility] [address] [id number] [address] [place] [address], [place] [address] Feb, [facility] [address] [id number] [address] [place] [address], [place] [address] Feb, [facility] [address] [id number] [address] [place] [address], [place] [address] Feb, [facility] [address] [id number] [address] [place] [address], [place] [address] Feb, [facility] [address] [id number] [address] [place] [address], [place] [address] Feb, [facility] [address] [id number] [address] [place] [address], [place] [address] Jan, [facility] [address] [id number] [address] [place] [address], [place] [address] Jan, [facility] [address] [id number] [address] [place] [address], [place] [address] Jan, [facility] [address] [id number] [address] [place] [address], [place] [address] Jan, [facility] [address] [id number] [address] [place] [address], [place] [address] Jan, [facility] [address] [id number] [address] [place] [address], [place] [address] Jan, [facility] [address] [id number] [address] [place] [address], [place] [address] Jan, [facility] [address] [id number] [address] [place] [address], [place] [address] Dec, [facility] [address] [id number] [address] [place] [address], [place] [address] Dec, [facility] [address] [id number] [address] [place] [address], [place] [address] Dec, [facility] [address] [id number] [address] [place] [address], [place] [address] Dec, [facility] [address] [id number] [address] [place] [address], [place] [address] Nov, [facility] [address] [id number] [address] [place] [address], [place] [address] Nov, [facility] [address] [id number] [address] [place] [address], [place] [address] Nov, [facility] [address] [id number] [address] [place] [address], [place] [address] Nov, [facility] [address] [id number] [address] [place] [address], [place] [address] Nov, [facility] [address] [id number] [address] [place] [address], [place] [address] Nov, [facility] [address] [id number] [address] [place] [address], [place] [address] Nov, [facility] [address] [id number] [address] [place] [address], [place] [address] Oct, [facility] [address] [id number] [address] [place] [address], [place] [address] Oct, [facility] [address] [id number] [address] [place] [address], [place] [address] Oct, [facility] [address] [id number] [address] [place] [address], [place] [address] Oct, [facility] [address] [id number] [address] [place] [address], [place] [address] Oct, [facility] [address] [id number] [address] [place] [address], [place] [address] Oct, [facility] [address] [id number] [address] [place] [address], [place] [address] Oct, [facility] [address] [id number] [address] [place] [address], [place] [address] Oct, [facility] [address] [id number] [address] [place] [address], [place] [address] Sep, Suleiman HATFIELDJOSE ANTONIORANDI [address] [id number] [place] [id number] August, [facility] [address] [id number] [address] [place] [address], [place] [address] August, [facility] [address] [id number] [address] [place] [address], [place] [address] Jul, [facility] [address] [id number] [address] [place] [address], [place] [address] Jul, [facility] [address] [id number] [address] [place] [address], [place] [address] Jul, [facility] [address] [id number] [address] [place] [address], [place] [address] Jul, [facility] [address] [id number] [address] [place] [address], [place] [address] 18 Jul, 2012 [facility] [address] [id number] [address] [place] [address], [place] [address] 17 Jul, 2012 [facility] [address] [id number] [address] [place] [address], [place] [address] 16 Jul, 2012 [facility] [address] [id number] [address] [place] [address], [place] [address] Jun, [facility] [address] [id number] [address] [place] [address], [place] [address] 18 Jun, 2012 [facility] [address] [id number] [address] [place] [address], [place] [address] Jun, [facility] [address] [id number] [address] [place] [address], [place] [address] 04 Jun, 2012 [facility] [address] [id number] [address] [place] [address], [place] [address] 04 Jun, 2012 [facility] [address] [id number] [address] [place] [address], [place] [address] May, [facility] [address] [id number] [address] [place] [address], [place] [address] 18 May, 2012 [facility] [address] [id number] [address] [place] [address], [place] [address] May, [facility] [address] [id number] [address] [place] [address], [place] [address] 15 Apr, 2012 [facility] [address] [id number] [address] [place] [address], [place] [address] 14 Apr, 2012 [facility] [address] [id number] [address] [place] [address], [place] [address] 07 Apr, 2012 [facility] [address] [id number] [address] [place] [address], [place] [address] 31 Mar, 2012 [facility] [address] [id number] [address] [place] [address], [place] [address] 31 Mar, 2012 [facility] [address] [id number] [address] [place] [address], [place] [address] 13 Mar, 2012 [facility] [address] [id number] [address] [place] [address], [place] [address] 13 Mar, 2012 [facility] [address] [id number] [address] [place] [address], [place] [address] 10 Mar, 2012 [facility] [address] [id number] [address] [place] [address], [place] [address] Mar, [facility] [address] [id number] [address] [place] [address], [place] [address] Feb, [facility] [address] [id number] [address] [place] [address], [place] [address] Feb, [facility] [address] [id number] [address] [place] [address], [place] [address] Jan, [facility] [address] [id number] [address] [place] [address], [place] [address] Jan, [facility] [address] [id number] [address] [place] [address], [place] [address] Dec, [facility] [address] [id number] [address] [place] [address], [place] [address] Nov, [facility] [address] [id number] [address] [place] [address], [place] [address] Nov, [facility] [address] [id number] [address] [place] [address], [place] [address] Nov, [facility] [address] [id number] [address] [place] [address], [place] [address] Nov, [facility] [address] [id number] [address] [place] [address], [place] [address] Oct, [facility] [address] [id number] [address] [place] [address], [place] [address] Oct, [facility] [address] [id number] [address] [place] [address], [place] [address] Oct, [facility] [address] [id number] [address] [place] [address], [place] [address] Sep, [facility] [address] [id number] [address] [place] [address], [place] [address] Sep, [facility] [address] [id number] [address] [place] [address], [place] [address] Sep, [facility] [address] [id number] [address] [place] [address], [place] [address] August, [facility] [address] [id number] [address] [place] [address], [place] [address] August, [facility] [address] [id number] [address] [place] [address], [place] [address] Jul, [facility] [address] [id number] [address] [place] [address], [place] [address] Jul, [facility] [address] [id number] [address] [place] [address], [place] [address] Jul, [facility] [address] [id number] [address] [place] [address], [place] [address] Jul, [facility] [address] [id number] [address] [place] [address], [place] [address] Jun, [facility] [address] [id number] [address] [place] [address], [place] [address] May, [facility] [address] [id number] [address] [place] [address], [place] [address] Apr, [facility] [address] [id number] [address] [place] [address], [place] [address] Apr, [facility] [address] [id number] [address] [place] [address], [place] [address] Apr, [facility] [address] [id number] [address] [place] [address], [place] [address] Apr, [facility] [address] [id number] [address] [place] [address], [place] [address] Apr, [facility] [address] [id number] [address] [place] [address], [place] [address] Apr, [facility] [address] [id number] [address] [place] [address], [place] [address] Mar, [facility] [address] [id number] [address] [address] Mar, [facility] [address] [id number] [address] [place] [address], [place] [address] 29 Feb, 2011 [facility] [address] [id number] [address] [place] [address] Feb, [facility] [address] [id number] [address] [place] [address] Feb, [facility] [address] [id number] [address] [place] [address] Feb, [facility] [address] [id number] [address] [place] [address], [place] [address] Jan, [facility] [address] [id number] [address] [place] [address] Jan, [facility] [address] [id number] [address] [place] [address] Jan, [facility] [address] [id number] [address] [place] [address] Jan, [facility] [address] [id number] [address] [place] [address] Nov, [facility] [address] [id number] [address] [place] [address] Mar, [facility] [address] [id number] [address] [place] [address] Mar, [facility] [address] [id number] [address] [place] [id number] 30 Feb, 2010 [facility] [address] [id number] [address] [place] [address], [place] [address] 15 Feb, 2010 [facility] [address] [id number] [address] [place] [address] Jan, [facility] [address] [id number] [address] [place] [address] Jan, [facility] [address] [id number] [address] [place] [id number] 15 Sep, 2009 [facility] [address] [id number] [address] [place] [address] May, [facility] [address] [id number] [address] [place] [address] Apr, [facility] [address] [id number] [address] [place] [address] Mar, [facility] [address] [id number] [address] [place] [id number] Feb, [facility] [address] [id number] [address] [place] [address] Feb, [facility] [address] [id number] [address] [place] [id number] Feb, [facility] [address] [id number] [address] [place] [address] Jan, [facility] [address] [id number] [address] [place] [id number] Jan, [facility] [address] [id number] [address] [place] [id number] Jan, [facility] [address] [id number] [address] [place] [id number] Jan, [facility] [address] [id number] [address] [place] [id number] August, IMMUNIZATIONS No Known Immunizations SOCIAL HISTORY Never Assessed REASON FOR VISIT Lab (walk-in) PLAN OF CARE VITAL SIGNS MEDICATIONS Unknown Medications RESULTS No Results PROCEDURES Procedure Date Ordered Result Body Site LAB NOT BILLED BY [facility] October 08, 2017 VENIPCHARISSA, ROUTINE* October 08, 2017 INSTRUCTIONS MEDICATIONS ADMINISTERED No Known Medications [...] age 6 Hospitalization History surgery Hospitalization History [facility], [facility] treatment few times for BH
--- OUTSIDE RECORDS SUMMARY | 2019-09-29 11:01 | XMS REPORT ---
Author Author Cameron ALANIZ Organization [facility] Address [address] [place] [address] Care Team Providers Care Transformer Repairer Name Role Phone JEET ALANIZ Unavailable PROBLEMS Type Condition ICD9-CM Code MES48-XO Code Onset Dates Condition S tatus SNOMED Code Problem Diabetes E11.9 Active 15330098 Problem Intermittent explosive disorder in adult F63.81 Active 51083441 Problem Bipolar disorder, in partial remission, most rec ent episode manic F31.73 Active 88592461 Problem Neuropathy G62.9 Active 548359595 Problem Other diabetic neurological complication associated with type 2 diabetes mellitus E11.49 Active 387483221 Problem Mild intellectual disability F70 A ctive 41510342 Problem Bipolar disorder, unspecified F31.9 Active 41773148 Problem Gastroesophageal reflux disease without esophagitis K21.9 Active 344551084 Problem Reactive airway disease, mild intermittent, uncomplicated J45.20 Active 211056009 Problem Adjustment disorder, unspecified type F43.20 Active 52435446 Problem Open-angle glaucoma of both eyes, unspecified glaucoma stage, unspecified open-angle glaucoma type H40.10X0 Acti ve 80376736 Problem 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 [address] [facility] [id number] [address] [place] [address] Apr, [facility] [address] [facility] [id number] [address] [place] [address] Jan, [facility] [address] [facility] [id number] [address] [place] [address] Nov, [facility] [address] [facility] [id number] [address] [place] [address] Oct, Intermittent explosive disor salvatore in adult F63.81 ; Bipolar disorder, unspecified F31.9 and Mild intellectual disability F70 [facility] [address] [facility] [id number] [address] [place] [address] Oct, [facility] [address] [place] [id number] [address] [place] [address] [id number] Oct, Dental examination Z01.20 [place] [address] [address] [facility] [id number] [address] [place] [address] Oct, Onychomycosis B35.1 and Othe r diabetic neurological complication associated with type 2 diabetes mellitus E11.49 [place] [address] [address] [facility] [id number] [address] [place] [address] Sep, Type 2 diabetes mellitus wit h complication E11.8 and Colon cancer screening Z12.11 [place] [address] [address] [facility] [id number] [address] [place] [address] Sep, Type 2 diabetes mellitus wit h complication E11.8 ; Colon cancer screening Z12.11 and Neuropathy G62.9 [facility] [address] [facility] [id number] [address] [place] [address] August, Diabetes E11.9 [facility] [address] [facility] [id number] [address] [place] [address] [id number] Jul, Dental examination Z01.20 [facility] [address] [facility] [id number] [address] [place] [address] 27 May, 2017 Mild intellectual disability F70 [facility] [address] [facility] [id number] [address] [place] [address] 07 May, 2017 Mild intellectual disability F70 ; High risk medication use Z79.899 ; Intermittent explosive disorder in adult F63.81 and Bipolar disorder, unspecified F31.9 [facility] [address] [id number] [address] [place] [phone] 05 May, 2017 [facility] [address] [id number] [address] [place] [address] May, [facility] [address] [id number] [address] [place] [address] Apr, Type 2 diabetes mellitus wit h complication E11.8 ; Mild intellectual disability F70 ; Gastroesophageal reflux disease without esophagitis K21.9 ; Reactive airway disease, mild intermittent, uncomplicated J45.20 and Tobacco abuse Z72.0 [facility] [address] [id number] [address] [place] [address] Apr, High risk medication use Z79 .899 ; Mild intellectual disability F70 ; Intermittent explosive disorder in adult F63.81 and Bipolar disorder, unspecified F31.9 [facility] [address] [id number] [address] [place] [id number] Mar, Encounter for dental exam an d cleaning w/o abnormal findings Z01.20 [facility] [address] [id number] [address] [place] [address] [id number] Mar, Dental examination Z01.20 [facility] [address] [id number] [address] [place] [address] 12 Jan, 2017 [facility] [address] [id number] [address] [place] [address] Jan, [facility] [address] [id number] [address] [place] [address] Jan, Mild intellectual disability F70 ; Bipolar disorder, unspecified F31.9 and Intermittent explosive disorder in adult F63.81 [facility] [address] [id number] [address] [place] [address] Jan, Diabetes E11.9 [facility] [address] [id number] [address] [place] [address] [phone] 13 Dec, 2016 Encounter for dental examina tion and cleaning without abnormal findings Z01.20 [facility] [address] [id number] [address] [place] [address] 12 Dec, 2016 Bipolar disorder, unspecifie d F31.9 ; Intermittent explosive disorder in adult F63.81 and Mild intellectual disability F70 [facility] [address] [id number] [address] [place] [address] Nov, Diabetes E11.9 [facility] [address] [id number] [address] [place] [address] Nov, [facility] [address] [facility] [id number] [address] [place] [address] Nov, Diabetes E11.9 and Colon can cer screening Z12.[address] [facility] [id number] [place] [id number] Sep, Dental examination Z01.20 [facility] [address] [id number] [address] [place] [phone] Sep, Encounter for dental examina tion and cleaning without abnormal findings Z01.20 [facility] [address] [id number] [address] [place] [phone] Sep, Bipolar disorder, unspecifie d F31.9 [facility] [address] [id number] [address] [place] [phone] Sep, Bipolar disorder, unspecifie d F31.9 [facility] [address] [id number] [address] [place] [address] Jul, [facility] [address] [id number] [address] [place] [address] Jul, Type 2 diabetes mellitus wit h complication E11.8 [facility] [address] [id number] [address] [place] [phone] Jun, Encounter for dental examina tion and cleaning without abnormal findings Z01.[address] [facility] [address] [id number] [id number] 15 Jun, 2016 Dental examination Z01.20 [facility] [address] [id number] [address] [place] [address] 18 Apr, 2016 Sports physical Z02.5 [facility] [address] [id number] [address] [place] [phone] 14 Mar, 2016 Bipolar disorder, in partial remission, most recent episode manic F31.73 and Intermittent explosive disorder in adult F63.81 [facility] [address] [id number] [address] [place] [phone] 08 Mar, 2016 [facility] [address] [id number] [address] [place] [address] 06 Mar, 2016 Diabetes E11.9 [facility] [address] [id number] [address] [place] [address] [phone] Feb, Encounter for dental examina tion and cleaning without abnormal findings Z01.20 [facility] [address] [id number] [address] [place] [address] 22 Dec, 2015 Nocturnal hypoxemia G47.34 a nd Encounter for immunization Z23 [facility] [address] [id number] [address] [place] [id number] 15 Dec, 2015 [facility] [address] [id number] [address] [place] [phone] Dec, [facility] [address] [id number] [address] [place] [address] Dec, Bipolar disorder, unspecifie d F31.9 [facility] [address] [id number] [address] [place] [address] [phone] Oct, Encounter for dental examina tion and cleaning without abnormal findings Z01.[address] [facility] [address] [id number] [id number] Oct, Dental examination Z01.20 [facility] [address] [id number] [address] [place] [phone] Oct, Diabetes E11.9 [facility] [address] [facility] [id number] [address] [place] [address] Oct, Diabetes E11.9 ; Reactive ai rway disease, mild intermittent, uncomplicated J45.20 and Tobacco abuse Z72.0 [facility] [address] [facility] [id number] [address] [place] [phone] Sep, Bipolar disorder, unspecifie d F31.9 and Depression F32.9 [place] [address] [address] [facility] [id number] [address] [place] [phone] Sep, [place] [address] [address] [place] [id number] [place] [phone] August, Tinea pedis of both feet B35 .3 and DM w/o complication type II, uncontrolled E11.65 [place] [id number] [facility] [id number] [address] [place] [phone] Jul, [facility] [address] [facility] [id number] [address] [place] [address] Jul, [place] [address] [address] [facility] [id number] [address] [place] [address] Jul, Obstructive sleep apnea G47. 33 [facility] [address] [facility] [id number] [address] [place] [address] Jun, Diabetes E11.9 [facility] [address] [facility] [id number] [address] [place] [address] Jun, [facility] [address] [facility] [id number] [address] [place] [address] Jun, [facility] [address] [facility] [id number] [address] [place] [address] Jun, Bipolar disorder, unspecifie d F31.9 and Mental retardation F79 [facility] [address] [facility] [id number] [address] [place] [phone] Apr, [place] [address] [id number] Feb, Diabetes E11.9 ; Encounter f or immunization Z23 ; Cough R05 and Nicotine abuse Z72.0 [place] [address] [address] Jan, Bipolar disorder, unspecifie d F31.9 and Diabetes mellitus without mention of complication, type II or unspecified type, uncontrolled 250.02 [place] [address] [address] Jan, [place] [address] [address] Dec, Reactive airway disease 493. 90 and Enuresis 788.30 [place] [address] [address] Dec, [place] [address] [address] Nov, [place] [address] [address] Nov, [address] [address] Nov, Annual physical exam V70.0 ; Urinary incontinence 788.30 ; Diabetes 250.00 and Hypertension 401.[address] [address] Oct, Diabetes mellitus without me ntion of complication, type II or unspecified type, uncontrolled 250.02 [place] [address] [address] Oct, Diabetes mellitus without me ntion of complication, type II or unspecified type, uncontrolled 250.02 [place] [address] [address] Oct, Diabetes mellitus without me ntion of complication, type II or unspecified type, uncontrolled 250.02 [facility] [address] [id number] [address] [place] [address] Oct, [facility] [address] [id number] [address] [place] [address] Oct, [facility] [address] [id number] [address] [place] [address] Oct, Bipolar disorder, unspecifie d 296.80 [facility] [address] [id number] [address] [place] [address] [id number] Sep, Dental examination V72.2 [facility] [address] [id number] [address] [place] [address] August, [facility] [address] [id number] [address] [place] [address] [id number] August, Dental examination V72.2 [facility] [address] [id number] [address] [place] [address] August, [facility] [address] [id number] [address] [place] [address] Jul, [facility] [address] [id number] [address] [place] [address] Jul, [facility] [address] [id number] [address] [place] [address] Jun, [facility] [address] [id number] [address] [place] [phone] Jun, [facility] [address] [id number] [address] [place] [address] Jun, [facility] [address] [id number] [address] [place] [phone] Jun, [facility] [address] [id number] [address] [place] [address] May, [facility] [address] [id number] [address] [place] [address] May, [facility] [address] [id number] [address] [place] [address], [place] [address] May, 2014 [facility] [address] [id number] [address] [place] [address], [place] [address] May, 2014 [facility] [address] [id number] [address] [place] [address], [place] [address] May, 2014 [facility] [address] [id number] [address] [place] [address], [place] [address] May, 2014 [facility] [address] [id number] [address] [place] [address], [place] [address] May, 2014 [facility] [address] [id number] [address] [place] [address], [place] [address] May, 2014 [facility] [address] [id number] [address] [place] [address], [place] [address] May, 2014 [facility] [address] [id number] [address] [place] [address], [place] [address] May, 2014 [facility] [address] [id number] [address] [place] [address], [place] [address] May, 2014 [facility] [address] [id number] [address] [place] [address], [place] [address] May, 2014 [facility] [address] [id number] [address] [place] [address], [place] [address] May, 2014 [facility] [address] [id number] [address] [place] [address], [place] [address] May, 2014 [facility] [address] [id number] [address] [place] [address], [place] [address] May, 2014 [facility] [address] [id number] [address] [place] [address], [place] [address] Apr, [facility] [address] [id number] [address] [place] [address], [place] [address] Apr, [facility] [address] [id number] [address] [place] [address], [place] [address] Apr, [facility] [address] [id number] [address] [place] [address], [place] [address] Apr, [facility] [address] [id number] [address] [place] [address], [place] [address] Apr, [facility] [address] [id number] [address] [place] [address], [place] [address] Apr, [facility] [address] [id number] [address] [place] [address], [place] [address] Apr, [facility] [address] [id number] [address] [place] [address], [place] [address] Apr, [facility] [address] [id number] [address] [place] [address], [place] [address] Apr, [facility] [address] [id number] [address] [place] [address], [place] [address] Apr, [facility] [address] [id number] [address] [place] [address], [place] [address] Apr, [facility] [address] [id number] [address] [place] [address], [place] [address] Apr, [facility] [address] [id number] [address] [place] [address], [place] [address] Mar, [facility] [address] [id number] [address] [place] [address], [place] [address] Mar, [facility] [address] [id number] [address] [place] [address], [place] [address] Mar, [facility] [address] [id number] [address] [place] [address], [place] [address] Mar, [facility] [address] [id number] [address] [place] [address], [place] [address] Mar, [facility] [address] [id number] [address] [place] [address], [place] [address] Mar, [facility] [address] [id number] [address] [place] [address], [place] [address] Feb, [facility] [address] [id number] [address] [place] [address], [place] [address] Feb, [facility] [address] [id number] [address] [place] [address], [place] [address] Feb, [facility] [address] [id number] [address] [place] [address], [place] [address] Feb, [facility] [address] [id number] [address] [place] [address], [place] [address] 14 Jan, 2014 [facility] [address] [id number] [address] [place] [address], [place] [id number] 14 Jan, 2014 [facility] [address] [id number] [address] [place] [address], [place] [id number] 14 Jan, 2014 [facility] [address] [id number] [address] [place] [address], [place] [id number] 14 Jan, 2014 [facility] [address] [id number] [address] [place] [address], [place] [id number] 22 Dec, 2013 [facility] [address] [id number] [address] [place] [address], [place] [id number] 22 Dec, 2013 [facility] [address] [id number] [address] [place] [address], [place] [id number] 15 Dec, 2013 [facility] [address] [id number] [address] [place] [address], [place] [id number] 15 Dec, 2013 [facility] [address] [id number] [address] [place] [address], [place] [id number] Nov, [facility] [address] [id number] [address] [place] [address], [place] [address] Nov, [facility] [address] [id number] [address] [place] [address], [place] [id number] Nov, [facility] [address] [id number] [address] [place] [address], [place] [address] Nov, [facility] [address] [id number] [address] [place] [id number] Nov, [facility] [address] [id number] [address] [place] [address] Nov, [facility] [address] [id number] [address] [place] [address], [place] [address] Nov, [facility] [address] [id number] [address] [place] [address], [place] [address] Oct, [facility] [address] [id number] [address] [place] [address], [place] [id number] Oct, [facility] [address] [id number] [address] [place] [address], [place] [address] Oct, [facility] [address] [id number] [address] [place] [address], [place] [address] Oct, [facility] [address] [id number] [address] [place] [address], [place] [id number] Oct, [facility] [address] [id number] [address] [place] [address], [place] [address] Oct, [facility] [address] [id number] [address] [place] [address], [place] [address] Oct, [facility] [address] [id number] [address] [place] [address], [place] [id number] Sep, [facility] [address] [id number] [address] [place] [address], [place] [address] Sep, [facility] [address] [id number] [address] [place] [address], [place] [address] Sep, [facility] [address] [id number] [address] [place] [address], [place] [address] Sep, [facility] [address] [id number] [address] [place] [address], [place] [address] Sep, [facility] [address] [id number] [facility] [place] [address] Jul, [facility] [address] [id number] [facility] [place] [address] Jul, [facility] [address] [id number] [address] [place] [address], [place] [address] Jul, [facility] [address] [id number] [address] [place] [address], [place] [address] Jul, [facility] [address] [id number] [address] [place] [address], [place] [address] Jul, [facility] [address] [id number] [address] [place] [address], [place] [address] Jul, [facility] [address] [id number] [address] [place] [address], [place] [address] Jul, [facility] [address] [id number] [address] [place] [address], [place] [address] Jul, [facility] [address] [id number] [address] [place] [address], [place] [address] Jul, [facility] [address] [id number] [address] [place] [address], [place] [address] Jul, [facility] [address] [id number] [address] [place] [address], [place] [address] Jul, [facility] [address] [id number] [address] [place] [address], [place] [address] Jul, [facility] [address] [id number] [address] [place] [address], [place] [address] Jun, [facility] [address] [id number] [address] [place] [address], [place] [address] Jun, [facility] [address] [id number] [address] [place] [address], [place] [address] Jun, [facility] [address] [id number] [address] [place] [address], [place] [address] Jun, [facility] [address] [id number] [address] [place] [address], [place] [address] Jun, [facility] [address] [id number] [address] [place] [address], [place] [address] Jun, [facility] [address] [id number] [address] [place] [address], [place] [address] Jun, [facility] [address] [id number] [address] [place] [address], [place] [address] Jun, [facility] [address] [id number] [address] [place] [address], [place] [address] May, [facility] [address] [id number] [address] [place] [address], [place] [address] May, [facility] [address] [id number] [address] [place] [address], [place] [address] May, [facility] [address] [id number] [address] [place] [address], [place] [address] May, [facility] [address] [id number] [address] [place] [address], [place] [address] May, [facility] [address] [id number] [address] [place] [address], [place] [address] May, [facility] [address] [id number] [address] [place] [address], [place] [address] May, [facility] [address] [id number] [address] [place] [address], [place] [address] May, [facility] [address] [id number] [address] [place] [address], [place] [address] Apr, [facility] [address] [id number] [address] [place] [address], [place] [address] Apr, [facility] [address] [id number] [address] [place] [address], [place] [address] Apr, [facility] [address] [id number] [address] [place] [address], [place] [address] Apr, [facility] [address] [id number] [address] [place] [address], [place] [address] Mar, [facility] [address] [id number] [address] [place] [address], [place] [address] Mar, [facility] [address] [id number] [address] [place] [address], [place] [address] Mar, [facility] [address] [id number] [address] [place] [address], [place] [address] Feb, [facility] [address] [id number] [address] [place] [address], [place] [address] Feb, [facility] [address] [id number] [address] [place] [address], [place] [address] Feb, [facility] [address] [id number] [address] [place] [address], [place] [address] Feb, [facility] [address] [id number] [address] [place] [address], [place] [address] Feb, [facility] [address] [id number] [address] [place] [address], [place] [address] Feb, [facility] [address] [id number] [address] [place] [address], [place] [address] Jan, [facility] [address] [id number] [address] [place] [address], [place] [address] Jan, [facility] [address] [id number] [address] [place] [address], [place] [address] Jan, [facility] [address] [id number] [address] [place] [address], [place] [address] Jan, [facility] [address] [id number] [address] [place] [address], [place] [address] Jan, [facility] [address] [id number] [address] [place] [address], [place] [address] Jan, [facility] [address] [id number] [address] [place] [address], [place] [address] Jan, [facility] [address] [id number] [address] [place] [address], [place] [address] Dec, [facility] [address] [id number] [address] [place] [address], [place] [address] Dec, [facility] [address] [id number] [address] [place] [address], [place] [address] Dec, [facility] [address] [id number] [address] [place] [address], [place] [address] Dec, [facility] [address] [id number] [address] [place] [address], [place] [address] Nov, [facility] [address] [id number] [address] [place] [address], [place] [address] Nov, [facility] [address] [id number] [address] [place] [address], [place] [address] Nov, [facility] [address] [id number] [address] [place] [address], [place] [address] Nov, [facility] [address] [id number] [address] [place] [address], [place] [address] Nov, [facility] [address] [id number] [address] [place] [address], [place] [address] Nov, [facility] [address] [id number] [address] [place] [address], [place] [address] Nov, [facility] [address] [id number] [address] [place] [address], [place] [address] Oct, [facility] [address] [id number] [address] [place] [address], [place] [address] Oct, [facility] [address] [id number] [address] [place] [address], [place] [address] Oct, [facility] [address] [id number] [address] [place] [address], [place] [address] Oct, [facility] [address] [id number] [address] [place] [address], [place] [address] Oct, [facility] [address] [id number] [address] [place] [address], [place] [address] Oct, [facility] [address] [id number] [address] [place] [address], [place] [address] Oct, [facility] [address] [id number] [address] [place] [address], [place] [address] Oct, [facility] [address] [id number] [address] [place] [address], [place] [address] Sep, [facility] [address] [id number] COFFJOSE AN[place] [id number] August, [facility] [address] [id number] [address] [place] [address], [place] [address] August, [facility] [address] [id number] [address] [place] [address], [place] [address] Jul, [facility] [address] [id number] [address] [place] [address], [place] [address] Jul, [facility] [address] [id number] [address] [place] [address], [place] [address] Jul, [facility] [address] [id number] [address] [place] [address], [place] [address] Jul, [facility] [address] [id number] [address] [place] [address], [place] [address] 18 Jul, 2012 [facility] [address] [id number] [address] [place] [address], [place] [address] 17 Jul, 2012 [facility] [address] [id number] [address] [place] [address], [place] [address] 16 Jul, 2012 [facility] [address] [id number] [address] [place] [address], [place] [address] Jun, [facility] [address] [id number] [address] [place] [address], [place] [address] 18 Jun, 2012 [facility] [address] [id number] [address] [place] [address], [place] [address] Jun, [facility] [address] [id number] [address] [place] [address], [place] [address] 04 Jun, 2012 [facility] [address] [id number] [address] [place] [address], [place] [address] 04 Jun, 2012 [facility] [address] [id number] [address] [place] [address], [place] [address] May, [facility] [address] [id number] [address] [place] [address], [place] [address] 18 May, 2012 [facility] [address] [id number] [address] [place] [address], [place] [address] May, [facility] [address] [id number] [address] [place] [address], [place] [address] 15 Apr, 2012 [facility] [address] [id number] [address] [place] [address], [place] [address] 14 Apr, 2012 [facility] [address] [id number] [address] [place] [address], [place] [address] 07 Apr, 2012 [facility] [address] [id number] [address] [place] [address], [place] [address] 31 Mar, 2012 [facility] [address] [id number] [address] [place] [address], [place] [address] 31 Mar, 2012 [facility] [address] [id number] [address] [place] [address], [place] [address] 13 Mar, 2012 [facility] [address] [id number] [address] [place] [address], [place] [address] 13 Mar, 2012 [facility] [address] [id number] [address] [place] [address], [place] [address] 10 Mar, 2012 [facility] [address] [id number] [address] [place] [address], [place] [address] Mar, [facility] [address] [id number] [address] [place] [address], [place] [address] Feb, [facility] [address] [id number] [address] [place] [address], [place] [address] Feb, [facility] [address] [id number] [address] [place] [address], [place] [address] Jan, [facility] [address] [id number] [address] [place] [address], [place] [address] Jan, [facility] [address] [id number] [address] [place] [address], [place] [address] Dec, [facility] [address] [id number] [address] [place] [address], [place] [address] Nov, [facility] [address] [id number] [address] [place] [address], [place] [address] Nov, [facility] [address] [id number] [address] [place] [address], [place] [address] Nov, [facility] [address] [id number] [address] [place] [address], [place] [address] Nov, [facility] [address] [id number] [address] [place] [address], [place] [address] Oct, [facility] [address] [id number] [address] [place] [address], [place] [address] Oct, [facility] [address] [id number] [address] [place] [address], [place] [address] Oct, [facility] [address] [id number] [address] [place] [address], [place] [address] Sep, [facility] [address] [id number] [address] [place] [address], [place] [address] Sep, [facility] [address] [id number] [address] [place] [address], [place] [address] Sep, [facility] [address] [id number] [address] [place] [address], [place] [address] August, [facility] [address] [id number] [address] [place] [address], [place] [address] August, [facility] [address] [id number] [address] [place] [address], [place] [address] Jul, [facility] [address] [id number] [address] [place] [address], [place] [address] Jul, [facility] [address] [id number] [address] [place] [address], [place] [address] Jul, [facility] [address] [id number] [address] [place] [address], [place] [address] Jul, [facility] [address] [id number] [address] [place] [address], [place] [address] Jun, [facility] [address] [id number] [address] [place] [address], [place] [address] May, [facility] [address] [id number] [address] [place] [address], [place] [address] Apr, [facility] [address] [id number] [address] [place] [address], [place] [address] Apr, [facility] [address] [id number] [address] [place] [address], [place] [address] Apr, [facility] [address] [id number] [address] [place] [address], [place] [address] Apr, [facility] [address] [id number] [address] [place] [address], [place] [address] Apr, [facility] [address] [id number] [address] [place] [address], [place] [address] Apr, [facility] [address] [id number] [address] [place] [address], [place] [address] Mar, [facility] [address] [id number] [address] [place] [address] Mar, [facility] [address] [id number] [address] [place] [address], [place] [address] Feb, [facility] [address] [id number] [address] [place] [address] Feb, [facility] [address] [id number] [address] [place] [address], [place] [address] Feb, [facility] [address] [id number] [address] [place] [address] Feb, [facility] [address] [id number] [address] [place] [address], [place] [address] Jan, [facility] [address] [id number] [address] [place] [address] Jan, [facility] [address] [id number] [address] [place] [address] Jan, [facility] [address] [id number] [address] [place] [address] Jan, [facility] [address] [id number] [address] [place] [address] Nov, [facility] [address] [id number] [address] [place] [address] Mar, [facility] [address] [id number] [address] [place] [address] Mar, [facility] [address] [id number] [address] [place] [address] 30 Feb, 2010 [facility] [address] [id number] [address] [place] [address], [place] [address] 15 Feb, 2010 [facility] [address] [id number] [address] [place] [address] Jan, [facility] [address] [id number] [address] [place] [address], [place] [address] Jan, [facility] [address] [id number] [address] [place] [address] 15 Sep, 2009 [facility] [address] [id number] [address] [place] [address] May, [facility] [address] [id number] [address] [place] [address] Apr, [facility] [address] [id number] [address] [place] [address] Mar, [facility] [address] [id number] [address] [place] [address] Feb, [facility] [address] [id number] [address] [place] [address] Feb, [facility] [address] [id number] [address] [place] [address] Feb, [facility] [address] [id number] [address] [place] [address] Jan, [facility] [address] [id number] [address] [place] [address] Jan, [facility] [address] [id number] [address] [place] [address] Jan, [facility] [address] [id number] [address] [place] [address] Jan, [facility] [address] [id number] [address] [place] [address] August, IMMUNIZATIONS No Known Immunizations SOCIAL HISTORY Never Assessed REASON FOR VISIT Diabetes -Antoine KENT PLAN OF CARE Activity Details Follow Up 3 Months Reason:DM Pending Test COLOGUARD (OUTSIDE ORDER) VITAL SIGNS Height 65 in 2017-10-07 Weight 206 lbs 2017-10-07 Temperature 98.3 degrees Fahrenheit 2017-10-07 Heart Rate 76 bpm 2017-10-07 Respiratory Rate 20 2017-10-07 Oximetry on room air:96 % 2017-10-07 BMI 34.28 kg/m2 2017-10-07 Blood pressure systolic 120 mmHg 2017-10-07 Blood pressure diastolic 74 mmHg 2017-10-07 MEDICATIONS Medication Instructions Dosage Frequency Start Date End Date Duration S tatus MetFORMIN HCl ER 500 mg Orally twice a day. In 1 we ek increase to 2 in hs and 1 in AM. in 1 week increase to 2 in AM and 2 in PM Final dose 1 tablet Sep, 30 day(s) Active HydrOXYzine Pamoate Acti ve Travatan Active Atorvastatin Calcium Act guy Lisinopril Active Ventolin HFA 108 (90 Base) MCG/ACT Inhalation every 4 hrs 2 puffs a s needed 4h 31 Active Depakote ER 500 MG Orally every night 2 tablet 3 0 Active Metoprolol Succinate Act guy TRUEplus Lancets 33G - test blood sugar 12h Jan, 30 Active TRUEtest Test - test blood sugar 12h Nov, Active Folic Acid 1 MG take 0.5 tablet by Oral route 1 time per day 31 Active Risperidone Active Quetiapine Fumarate 100 MG Orally every morning 1 tablet 30 Active Simvastatin 20 MG Orally Once a day 1 tablet at bedtime 24h 31 Active RESULTS Name Result Date Reference Range A1C (IN HOUSE) 2017-10-07 A1C IN HOUSE 7.5 4.3 - 5.6 % Previous A1c 7.1 Lot [id number] Exp date 06/2019 PROCEDURES Procedure Date Ordered Result Body Site GLYCATED HEMOGLOBIN TEST October 07, 2017 INSTRUCTIONS MEDICATIONS ADMINISTERED No Known Medications [...] age 6 Hospitalization History surgery Hospitalization History [facility]
--- OUTSIDE RECORDS SUMMARY | 2019-09-29 11:02 | XMS REPORT ---
Author Author Cameron ALANIZ Organization [facility] Address [address] [place] [address] Care Team Providers Care Music Typographer Name Role Phone JEET ALANIZ Unavailable PROBLEMS Type Condition ICD9-CM Code PFP66-WT Code Onset Dates Condition S tatus SNOMED Code Problem Diabetes E11.9 Active 36272798 Problem Intermittent explosive disorder in adult F63.81 Active 17605366 Problem Bipolar disorder, in partial remission, most rec ent episode manic F31.73 Active 62970542 Problem Neuropathy G62.9 Active 274295181 Problem Other diabetic neurological complication associated with type 2 diabetes mellitus E11.49 Active 983896009 Problem Mild intellectual disability F70 A ctive 53350654 Problem Bipolar disorder, unspecified F31.9 Active 10809946 Problem Gastroesophageal reflux disease without esophagitis K21.9 Active 503099002 Problem Reactive airway disease, mild intermittent, uncomplicated J45.20 Active 509850465 Problem Adjustment disorder, unspecified type F43.20 Active 11361080 Problem Open-angle glaucoma of both eyes, unspecified glaucoma stage, unspecified open-angle glaucoma type H40.10X0 Acti ve 12281550 Problem 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 Active 48691020 Problem Reactive airway disease, unspecified asthma justin rity, uncomplicated J45.909 Active 414393450888 Problem Essential hypertension I10 Active 72005681 Problem Type 2 diabetes mellitus with complication E11.8 Active 97318639 Problem Hypertensive retinopathy of both eyes H35.033 Active 0785956 Problem Intermittent explosive disorder F63.81 Active 82343484 Problem Obstructive sleep apnea G47.33 Active 71133198 Problem Depression F32.9 Active 87433286 ALLERGIES No Information ENCOUNTERS Encounter Location Date Diagnosis [facility] [address] [facility] [id number] [address] [place] [address] Apr, [facility] [address] [facility] [id number] [address] [place] [address] Jan, [facility] [address] [facility] [id number] [address] [place] [address] Nov, [facility] [address] [facility] [id number] [address] [place] [address] Oct, Intermittent explosive disor salvatore in adult F63.81 ; Bipolar disorder, unspecified F31.9 and Mild intellectual disability F70 [facility] [address] [facility] [id number] [address] [place] [address] Oct, [facility] [address] [facility] [id number] [address] [place] [address] [id number] Oct, Dental examination Z01.20 [place] [address] [facility] [id number] [address] [place] [address] Oct, Onychomycosis B35.1 and Othe r diabetic neurological complication associated with type 2 diabetes mellitus E11.49 [place] [address] [facility] [id number] [address] [place] [address] Sep, Type 2 diabetes mellitus wit h complication E11.8 and Colon cancer screening Z12.11 [place] [address] [facility] [id number] [address] [place] [address] Sep, Type 2 diabetes mellitus wit h complication E11.8 ; Colon cancer screening Z12.11 and Neuropathy G62.9 [place] [address] [facility] [id number] [address] [place] [address] August, Diabetes E11.9 [facility] [address] [id number] [address] [place] [address] [id number] Jul, Dental examination Z01.20 [facility] [address] [facility] [id number] [address] [place] [address] 27 May, 2017 Mild intellectual disability F70 [facility] [address] [facility] [id number] [address] [place] [address] 07 May, 2017 Mild intellectual disability F70 ; High risk medication use Z79.899 ; Intermittent explosive disorder in adult F63.81 and Bipolar disorder, unspecified F31.9 [facility] [address] [id number] [address] [place] [address] 05 May, 2017 [facility] [address] [id number] [address] [place] [address] May, [facility] [address] [id number] [address] [place] [address] Apr, Type 2 diabetes mellitus wit h complication E11.8 ; Mild intellectual disability F70 ; Gastroesophageal reflux disease without esophagitis K21.9 ; Reactive airway disease, mild intermittent, uncomplicated J45.20 and Tobacco abuse Z72.0 [facility] [address] [id number] [address] [place] [address] Apr, High risk medication use Z79 .899 ; Mild intellectual disability F70 ; Intermittent explosive disorder in adult F63.81 and Bipolar disorder, unspecified F31.9 [facility] [address] [id number] [address] [place] [address] [id number] Mar, Encounter for dental exam an d cleaning w/o abnormal findings Z01.20 [facility] [address] [id number] [address] [place] [address] [id number] Mar, Dental examination Z01.20 [facility] [address] [id number] [address] [place] [address] 12 Jan, 2017 [facility] [address] [id number] [address] [place] [address] Jan, [facility] [address] [id number] [address] [place] [address] Jan, Mild intellectual disability F70 ; Bipolar disorder, unspecified F31.9 and Intermittent explosive disorder in adult F63.81 [facility] [address] [id number] [address] [place] [address] 02 Jan, 2017 Diabetes E11.9 [facility] [address] [id number] [address] [place] [address] [id number] 13 Dec, 2016 Encounter for dental examina tion and cleaning without abnormal findings Z01.20 [facility] [address] [facility] [id number] [address] [place] [address] 12 Dec, 2016 Bipolar disorder, unspecifie d F31.9 ; Intermittent explosive disorder in adult F63.81 and Mild intellectual disability F70 [facility] [address] [id number] [address] [place] [address] Nov, Diabetes E11.9 [facility] [address] [id number] [address] [place] [address] Nov, [facility] [address] [facility] [id number] [address] [place] [address] Nov, Diabetes E11.9 and Colon can cer screening Z12.[id number] [place] [address] [id number] Sep, Dental examination Z01.20 [facility] [address] [id number] [address] [place] [address] [id number] Sep, Encounter for dental examina tion and cleaning without abnormal findings Z01.20 [facility] [address] [id number] [address] [place] [address] Sep, Bipolar disorder, unspecifie d F31.9 [facility] [address] [id number] [address] [place] [address] Sep, Bipolar disorder, unspecifie d F31.9 [facility] [address] [id number] [address] [place] [address] Jul, [facility] [address] [id number] [address] [place] [address] Jul, Type 2 diabetes mellitus wit h complication E11.8 [facility] [address] [id number] [address] [place] [address] [phone] Jun, Encounter for dental examina tion and cleaning without abnormal findings Z01.20 [facility] [address] [id number] [id number] 15 Jun, 2016 Dental examination Z01.20 [facility] [address] [id number] [address] [place] [address] 18 Apr, 2016 Sports physical Z02.5 [facility] [address] [id number] [address] [place] [address] 14 Mar, 2016 Bipolar disorder, in partial remission, most recent episode manic F31.73 and Intermittent explosive disorder in adult F63.81 [facility] [address] [id number] [address] [place] [address] 08 Mar, 2016 [facility] [address] [id number] [address] [place] [address] 06 Mar, 2016 Diabetes E11.9 [facility] [address] [id number] [address] [place] [address] [id number] Feb, Encounter for dental examina tion and cleaning without abnormal findings Z01.20 [facility] [address] [id number] [address] [place] [address] 22 Dec, 2015 Nocturnal hypoxemia G47.34 a nd Encounter for immunization Z23 [facility] [address] [id number] [address] [place] [address] 15 Dec, 2015 [facility] [address] [id number] [address] [place] [address] Dec, [facility] [address] [id number] [address] [place] [address] Dec, Bipolar disorder, unspecifie d F31.9 [facility] [address] [id number] [address] [place] [address] [id number] Oct, Encounter for dental examina tion and cleaning without abnormal findings Z01.20 [facility] [address] [id number] [id number] Oct, Dental examination Z01.20 [facility] [address] [id number] [address] [place] [address] Oct, Diabetes E11.9 [facility] [address] [id number] [address] [place] [address] Oct, Diabetes E11.9 ; Reactive ai rway disease, mild intermittent, uncomplicated J45.20 and Tobacco abuse Z72.0 [facility] [address] [facility] [id number] [address] [place] [address] Sep, Bipolar disorder, unspecifie d F31.9 and Depression F32.9 [place] [address] [facility] [id number] [address] [place] [address] Sep, [place] [address] [facility] [id number] [address] [place] [address] August, Tinea pedis of both feet B35 .3 and DM w/o complication type II, uncontrolled E11.65 [place] [address] [facility] [id number] [address] [place] [address] Jul, [facility] [address] [facility] [id number] [address] [place] [address] Jul, [facility] [address] [facility] [id number] [address] [place] [address] Jul, Obstructive sleep apnea G47. 33 [facility] [address] [facility] [id number] [address] [place] [id number] Jun, Diabetes E11.9 [facility] [address] [facility] [id number] [address] [place] [address] Jun, [facility] [address] [facility] [id number] [address] [place] [id number] Jun, [facility] [address] [facility] [id number] [address] [place] [address] Jun, Bipolar disorder, unspecifie d F31.9 and Mental retardation F79 [facility] [address] [facility] [id number] [address] [place] [address] Apr, [place] [address] [address] Feb, Diabetes E11.9 ; Encounter f or immunization Z23 ; Cough R05 and Nicotine abuse Z72.0 [place] [address] [address] Jan, Bipolar disorder, unspecifie d F31.9 and Diabetes mellitus without mention of complication, type II or unspecified type, uncontrolled 250.02 [place] [address] [address] Jan, [place] [address] [address] Dec, Reactive airway disease 493. 90 and Enuresis 788.30 [place] [address] [address] Dec, [place] [address] [address] Nov, [place] [address] [address] Nov, [place] [address] [address] Nov, Annual physical exam V70.0 ; Urinary incontinence 788.30 ; Diabetes 250.00 and Hypertension 401.9 [place] [address] [address] Oct, Diabetes mellitus without me ntion of complication, type II or unspecified type, uncontrolled 250.02 [place] [address] [address] Oct, Diabetes mellitus without me ntion of complication, type II or unspecified type, uncontrolled 250.02 [place] [address] [address] Oct, Diabetes mellitus without me ntion of complication, type II or unspecified type, uncontrolled 250.02 [facility] [address] [id number] [address] [place] [id number] 08 Oct, 2014 [facility] [address] [id number] [address] [place] [address] Oct, [facility] [address] [id number] [address] [place] [address] Oct, Bipolar disorder, unspecifie d 296.80 [facility] [address] [id number] [address] [place] [address] [id number] Sep, Dental examination V72.2 [facility] [address] [id number] [address] [place] [address] August, [facility] [address] [id number] [address] [place] [address] [id number] August, Dental examination V72.2 [facility] [address] [id number] [address] [place] [address] August, [facility] [address] [id number] [address] [place] [address] Jul, [facility] [address] [id number] [address] [place] [address] Jul, [facility] [address] [id number] [address] [place] [address] Jun, [facility] [address] [id number] [address] [place] [address] Jun, [facility] [address] [id number] [address] [place] [address] Jun, [facility] [address] [id number] [address] [place] [address] Jun, [facility] [address] [id number] [address] [place] [address] May, [facility] [address] [id number] [address] [place] [address] May, [facility] [address] [id number] [address] [place] [address], [place] [address] 16 May, 2014 [facility] [address] [id number] [address] [place] [address], [place] [address] 16 May, 2014 [facility] [address] [id number] [address] [place] [address], [place] [address] 16 May, 2014 [facility] [address] [id number] [address] [place] [address], [place] [address] May, 2014 [facility] [address] [id number] [address] [place] [address], [place] [address] May, 2014 [facility] [address] [id number] [address] [place] [address], [place] [address] May, 2014 [facility] [address] [id number] [address] [place] [address], [place] [address] 16 May, 2014 [facility] [address] [id number] [address] [place] [address], [place] [address] May, 2014 [facility] [address] [id number] [address] [place] [address], [place] [address] May, 2014 [facility] [address] [id number] [address] [place] [address], [place] [address] May, 2014 [facility] [address] [id number] [address] [place] [address], [place] [address] May, 2014 [facility] [address] [id number] [address] [place] [address], [place] [address] May, 2014 [facility] [address] [id number] [address] [place] [address], [place] [address] May, 2014 [facility] [address] [id number] [address] [place] [address], [place] [address] Apr, [facility] [address] [id number] [address] [place] [address], [place] [address] Apr, [facility] [address] [id number] [address] [place] [address], [place] [address] Apr, [facility] [address] [id number] [address] [place] [address], [place] [address] Apr, [facility] [address] [id number] [address] [place] [address], [place] [address] Apr, [facility] [address] [id number] [address] [place] [address], [place] [address] Apr, [facility] [address] [id number] [address] [place] [address], [place] [address] Apr, [facility] [address] [id number] [address] [place] [address], [place] [address] Apr, [facility] [address] [id number] [address] [place] [address], [place] [address] Apr, [facility] [address] [id number] [address] [place] [address], [place] [address] Apr, [facility] [address] [id number] [address] [place] [address], [place] [address] Apr, [facility] [address] [id number] [address] [place] [address], [place] [address] Apr, [facility] [address] [id number] [address] [place] [address], [place] [address] Mar, [facility] [address] [id number] [address] [place] [address], [place] [address] Mar, [facility] [address] [id number] [address] [place] [address], [place] [address] Mar, [facility] [address] [id number] [address] [place] [address], [place] [address] Mar, [facility] [address] [id number] [address] [place] [address], [place] [address] Mar, [facility] [address] [id number] [address] [place] [address], [place] [address] Mar, [facility] [address] [id number] [address] [place] [address], [place] [address] Feb, [facility] [address] [id number] [address] [place] [address], [place] [address] Feb, [facility] [address] [id number] [address] [place] [address], [place] [address] Feb, [facility] [address] [id number] [address] [place] [address], [place] [address] Feb, [facility] [address] [id number] [address] [place] [address], [place] [address] 14 Jan, 2014 [facility] [address] [id number] [address] [place] [address], [place] [address] 14 Jan, 2014 [facility] [address] [id number] [address] [place] [address], [place] [address] 14 Jan, 2014 [facility] [address] [id number] [address] [place] [address], [place] [address] 14 Jan, 2014 [facility] [address] [id number] [address] [place] [address], [place] [address] 22 Dec, 2013 [facility] [address] [id number] [address] [place] [address], [place] [address] 22 Dec, 2013 [facility] [address] [id number] [address] [place] [address], [place] [address] 15 Dec, 2013 [facility] [address] [id number] [address] [place] [address], [place] [address] 15 Dec, 2013 [facility] [address] [id number] [address] [place] [address], [place] [address] Nov, [facility] [address] [id number] [address] [place] [address], [place] [address] Nov, [facility] [address] [id number] [address] [place] [address], [place] [address] Nov, [facility] [address] [id number] [address] [place] [address], [place] [address] Nov, [facility] [address] [id number] [facility] [place] [address] Nov, [facility] [address] [id number] [address] [place] [address], [place] [address] Nov, [facility] [address] [id number] [address] [place] [address], [place] [address] Nov, [facility] [address] [id number] [address] [place] [address], [place] [address] Oct, [facility] [address] [id number] [address] [place] [address], [place] [address] Oct, [facility] [address] [id number] [address] [place] [address], [place] [address] Oct, [facility] [address] [id number] [address] [place] [address], [place] [address] Oct, [facility] [address] [id number] [address] [place] [address], [place] [address] Oct, [facility] [address] [id number] [address] [place] [address], [place] [address] Oct, [facility] [address] [id number] [address] [place] [address], [place] [address] Oct, [facility] [address] [id number] [address] [place] [address], [place] [address] Sep, [facility] [address] [id number] [address] [place] [address], [place] [address] Sep, [facility] [address] [id number] [address] [place] [address], [place] [address] Sep, [facility] [address] [id number] [address] [place] [address], [place] [address] Sep, [facility] [address] [id number] [address] [place] [address], [place] [address] Sep, [facility] [address] [id number] [facility] [place] [address] Jul, [facility] [address] [id number] [facility] [place] [address] Jul, [facility] [address] [id number] [address] [place] [address], [place] [address] Jul, [facility] [address] [id number] [address] [place] [address], [place] [address] Jul, [facility] [address] [id number] [address] [place] [address], [place] [address] Jul, [facility] [address] [id number] [address] [place] [address], [place] [address] Jul, [facility] [address] [id number] [address] [place] [address], [place] [address] Jul, [facility] [address] [id number] [address] [place] [address], [place] [address] Jul, [facility] [address] [id number] [address] [place] [address], [place] [address] Jul, [facility] [address] [id number] [address] [place] [address], [place] [address] Jul, [facility] [address] [id number] [address] [place] [address], [place] [address] Jul, [facility] [address] [id number] [address] [place] [address], [place] [address] Jul, [facility] [address] [id number] [address] [place] [address], [place] [address] Jun, [facility] [address] [id number] [address] [place] [address], [place] [address] Jun, [facility] [address] [id number] [address] [place] [address], [place] [address] Jun, [facility] [address] [id number] [address] [place] [address], [place] [address] Jun, [facility] [address] [id number] [address] [place] [address], [place] [address] Jun, [facility] [address] [id number] [address] [place] [address], [place] [address] Jun, [facility] [address] [id number] [address] [place] [address], [place] [address] Jun, [facility] [address] [id number] [address] [place] [address], [place] [address] Jun, [facility] [address] [id number] [address] [place] [address], [place] [address] May, [facility] [address] [id number] [address] [place] [address], [place] [address] May, [facility] [address] [id number] [address] [place] [address], [place] [address] May, [facility] [address] [id number] [address] [place] [address], [place] [address] May, [facility] [address] [id number] [address] [place] [address], [place] [address] May, [facility] [address] [id number] [address] [place] [address], [place] [address] May, [facility] [address] [id number] [address] [place] [address], [place] [address] May, [facility] [address] [id number] [address] [place] [address], [place] [address] May, [facility] [address] [id number] [address] [place] [address], [place] [address] Apr, [facility] [address] [id number] [address] [place] [address], [place] [address] Apr, [facility] [address] [id number] [address] [place] [address], [place] [address] Apr, [facility] [address] [id number] [address] [place] [address], [place] [address] Apr, [facility] [address] [id number] [address] [place] [address], [place] [address] Mar, [facility] [address] [id number] [address] [place] [address], [place] [address] Mar, [facility] [address] [id number] [address] [place] [address], [place] [address] Mar, [facility] [address] [id number] [address] [place] [address], [place] [address] Feb, [facility] [address] [id number] [address] [place] [address], [place] [address] Feb, [facility] [address] [id number] [address] [place] [address], [place] [address] Feb, [facility] [address] [id number] [address] [place] [address], [place] [address] Feb, [facility] [address] [id number] [address] [place] [address], [place] [address] Feb, [facility] [address] [id number] [address] [place] [address], [place] [address] Feb, [facility] [address] [id number] [address] [place] [address], [place] [address] Jan, [facility] [address] [id number] [address] [place] [address], [place] [address] Jan, [facility] [address] [id number] [address] [place] [address], [place] [address] Jan, [facility] [address] [id number] [address] [place] [address], [place] [address] Jan, [facility] [address] [id number] [address] [place] [address], [place] [address] Jan, [facility] [address] [id number] [address] [place] [address], [place] [address] Jan, [facility] [address] [id number] [address] [place] [address], [place] [address] Jan, [facility] [address] [id number] [address] [place] [address], [place] [address] Dec, [facility] [address] [id number] [address] [place] [address], [place] [address] Dec, [facility] [address] [id number] [address] [place] [address], [place] [address] Dec, [facility] [address] [id number] [address] [place] [address], [place] [address] Dec, [facility] [address] [id number] [address] [place] [address], [place] [address] Nov, [facility] [address] [id number] [address] [place] [address], [place] [address] Nov, [facility] [address] [id number] [address] [place] [address], [place] [address] Nov, [facility] [address] [id number] [address] [place] [address], [place] [address] Nov, [facility] [address] [id number] [address] [place] [address], [place] [address] Nov, [facility] [address] [id number] [address] [place] [address], [place] [address] Nov, [facility] [address] [id number] [address] [place] [address], [place] [address] Nov, [facility] [address] [id number] [address] [place] [address], [place] [address] Oct, [facility] [address] [id number] [address] [place] [address], [place] [address] Oct, [facility] [address] [id number] [address] [place] [address], [place] [address] Oct, [facility] [address] [id number] [address] [place] [address], [place] [address] Oct, [facility] [address] [id number] [address] [place] [address], [place] [address] Oct, [facility] [address] [id number] [address] [place] [address], [place] [address] Oct, [facility] [address] [id number] [address] [place] [address], [place] [address] Oct, [facility] [address] [id number] [address] [place] [address], [place] [address] Oct, [facility] [address] [id number] [address] [place] [address], [place] [address] Sep, Suleiman ASHRANDI [address] [id number] [place] [id number] August, [facility] [address] [id number] [address] [place] [address], [place] [address] August, [facility] [address] [id number] [address] [place] [address], [place] [address] Jul, [facility] [address] [id number] [address] [place] [address], [place] [address] Jul, [facility] [address] [id number] [address] [place] [address], [place] [address] Jul, [facility] [address] [id number] [address] [place] [address], [place] [address] Jul, [facility] [address] [id number] [address] [place] [address], [place] [address] 18 Jul, 2012 [facility] [address] [id number] [address] [place] [address], [place] [address] 17 Jul, 2012 [facility] [address] [id number] [address] [place] [address], [place] [address] 16 Jul, 2012 [facility] [address] [id number] [address] [place] [address], [place] [address] Jun, [facility] [address] [id number] [address] [place] [address], [place] [address] 18 Jun, 2012 [facility] [address] [id number] [address] [place] [address], [place] [address] Jun, [facility] [address] [id number] [address] [place] [address], [place] [address] 04 Jun, 2012 [facility] [address] [id number] [address] [place] [address], [place] [address] 04 Jun, 2012 [facility] [address] [id number] [address] [place] [address], [place] [address] May, [facility] [address] [id number] [address] [place] [address], [place] [address] 18 May, 2012 [facility] [address] [id number] [address] [place] [address], [place] [address] May, [facility] [address] [id number] [address] [place] [address], [place] [address] 15 Apr, 2012 [facility] [address] [id number] [address] [place] [address], [place] [address] 14 Apr, 2012 [facility] [address] [id number] [address] [place] [address], [place] [address] 07 Apr, 2012 [facility] [address] [id number] [address] [place] [address], [place] [address] 31 Mar, 2012 [facility] [address] [id number] [address] [place] [address], [place] [address] 31 Mar, 2012 [facility] [address] [id number] [address] [place] [address], [place] [address] 13 Mar, 2012 [facility] [address] [id number] [address] [place] [address], [place] [address] 13 Mar, 2012 [facility] [address] [id number] [address] [place] [address], [place] [address] 10 Mar, 2012 [facility] [address] [id number] [address] [place] [address], [place] [address] Mar, [facility] [address] [id number] [address] [place] [address], [place] [address] Feb, [facility] [address] [id number] [address] [place] [address], [place] [address] Feb, [facility] [address] [id number] [address] [place] [address], [place] [address] Jan, [facility] [address] [id number] [address] [place] [address], [place] [address] Jan, [facility] [address] [id number] [address] [place] [address], [place] [address] Dec, [facility] [address] [id number] [address] [place] [address], [place] [address] Nov, [facility] [address] [id number] [address] [place] [address], [place] [address] Nov, [facility] [address] [id number] [address] [place] [address], [place] [address] Nov, [facility] [address] [id number] [address] [place] [address], [place] [address] Nov, [facility] [address] [id number] [address] [place] [address], [place] [address] Oct, [facility] [address] [id number] [address] [place] [address], [place] [address] Oct, [facility] [address] [id number] [address] [place] [address], [place] [address] Oct, [facility] [address] [id number] [address] [place] [address], [place] [address] Sep, [facility] [address] [id number] [address] [place] [address], [place] [address] Sep, [facility] [address] [id number] [address] [place] [address], [place] [address] Sep, [facility] [address] [id number] [address] [place] [address], [place] [address] August, [facility] [address] [id number] [address] [place] [address], [place] [address] August, [facility] [address] [id number] [address] [place] [address], [place] [address] Jul, [facility] [address] [id number] [address] [place] [address], [place] [address] Jul, [facility] [address] [id number] [address] [place] [address], [place] [address] Jul, [facility] [address] [id number] [address] [place] [address], [place] [address] Jul, [facility] [address] [id number] [address] [place] [address], [place] [address] Jun, [facility] [address] [id number] [address] [place] [address], [place] [address] May, [facility] [address] [id number] [address] [place] [address], [place] [address] Apr, [facility] [address] [id number] [address] [place] [address], [place] [address] Apr, [facility] [address] [id number] [address] [place] [address], [place] [address] Apr, [facility] [address] [id number] [address] [place] [address], [place] [address] Apr, [facility] [address] [id number] [address] [place] [address], [place] [address] Apr, [facility] [address] [id number] [address] [place] [address], [place] [address] Apr, [facility] [address] [id number] [address] [place] [address], [place] [address] Mar, [facility] [address] [id number] [address] [place] [address] Mar, [facility] [address] [id number] [address] [place] [address], [place] [address] 29 Feb, 2011 [facility] [address] [id number] [address] [place] [address] Feb, [facility] [address] [id number] [address] [place] [address], [place] [address] 17 Feb, 2011 [facility] [address] [id number] [address] [place] [address] Feb, [facility] [address] [id number] [address] [place] [address], [place] [address] Jan, [facility] [address] [id number] [address] [place] [address] 18 Jan, 2011 [facility] [address] [id number] [address] [place] [address], [place] [address] Jan, [facility] [address] [id number] [address] [place] [address] Jan, [facility] [address] [id number] [address] [place] [address] Nov, [facility] [address] [id number] [address] [place] [address] Mar, [facility] [address] [id number] [address] [place] [address] Mar, [facility] [address] [id number] [address] [place] [address] 30 Feb, 2010 [facility] [address] [id number] [address] [place] [address], [place] [address] 15 Feb, 2010 [facility] [address] [id number] [address] [place] [address], [place] [address] Jan, [facility] [address] [id number] [address] [place] [address], [place] [address] Jan, [facility] [address] [id number] [address] [place] [address] 15 Sep, 2009 [facility] [address] [id number] [address] [place] [address] May, [facility] [address] [id number] [address] [place] [address] Apr, [facility] [address] [id number] [address] [place] [address] Mar, [facility] [address] [id number] [address] [place] [address] Feb, [facility] [address] [id number] [address] [place] [address] Feb, [facility] [address] [id number] [address] [place] [address] Feb, [facility] [address] [id number] [address] [place] [address] Jan, [facility] [address] [id number] [address] [place] [address] Jan, [facility] [address] [id number] [address] [place] [address] Jan, [facility] [address] [id number] [address] [place] [address] Jan, [facility] [address] [id number] [address] [place] [address] August, IMMUNIZATIONS No Known Immunizations SOCIAL HISTORY Never Assessed REASON FOR VISIT Refill request PLAN OF CARE VITAL SIGNS MEDICATIONS Medication Instructions Dosage Frequency Start Date End Date Duration S tatus TRUEplus Lancets 33G - test blood sugar 12h Jan, Active TRUEtest Test - test blood sugar 12h Nov, Active RESULTS No Results PROCEDURES No Known [...] age 6 Hospitalization History surgery Hospitalization History [facility], [facility] treatment few times for BH
--- OUTSIDE RECORDS SUMMARY | 2019-09-29 11:02 | XMS REPORT ---
Author Author Cameron ALANIZ Organization [employer] Address Unknown Phone Unavailable Care Team Providers Care Senior Game Developer Name Role Phone JEET ALANIZ CP Unavailable Allergies No Known Allergies Problems Problem Type Condition Code Onset Dates Condition Statu s Problem Reactive airway disease, unspecified ast hma severity, uncomplicated J45.909 Active Problem Obstructive sleep apnea G47.33 Acti ve Problem Essential hypertension I10 Activ e Problem Depression F32.9 Active Problem Mild mental retardation F70 Acti ve Problem Diabetes E11.9 Active Problem Intermittent explosive disorder F63.81 Active Problem Type 2 diabetes mellitus with complication E11.8 Active Problem Adjustment disorder, unspecified type F43.20 Active Problem 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 Active Medications No Known Medications Results No Known Results Summary Purpose [employer] Submission
--- OUTSIDE RECORDS SUMMARY | 2019-09-29 11:02 | XMS REPORT ---
Author Author LETA Cameronsheridan YI Organization [facility] Address [address] [place] [address] Care Team Providers Care Head Of Music Name Role Phone SAMANTHALIAM WHITTINGTONA Unavailable PROBLEMS Type Condition ICD9-CM Code RTC79-DK Code Onset Dates Condition S tatus SNOMED Code Problem Depression F32.9 Active 24076842 Problem Bipolar disorder, in partial remission, most rec ent episode manic F31.73 Active 06166945 Problem Diabetes E11.9 Active 99198360 Problem Neuropathy G62.9 Active 722918307 Problem Gastroesophageal reflux disease without esophagitis K21.9 Active 718756878 Problem Bipolar disorder, unspecified F31.9 Active 33872478 Problem Intermittent explosive disorder in adult F63.81 Active 04316192 Problem Reactive airway disease, mild intermittent, uncomplicated J45.20 Active 920052943 Problem Mild intellectual disability F70 A ctive 32056571 Problem Reactive airway disease, unspecified asthma justin rity, uncomplicated J45.909 Active 745824174575 Problem Adjustment disorder, unspecified type F43.20 Active 18910658 Problem 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 Active 22581376 Problem Obstructive sleep apnea G47.33 Active 11004429 Problem Essential hypertension I10 Active 74539736 Problem Open-angle glaucoma of both eyes, unspecified glaucoma stage, unspecified open-angle glaucoma type H40.10X0 Acti ve 76503826 Problem Type 2 diabetes mellitus with complication E11.8 Active 20613641 Problem Hypertensive retinopathy of both eyes H35.033 Active 8368626 Problem Intermittent explosive disorder F63.81 Active 50414041 ALLERGIES No Known Allergies ENCOUNTERS Encounter Location Date Diagnosis [facility] [address] [facility] [id number] [place] [address] Oct, [place] [address] [id number] [id number] Oct, [facility] [address] [facility] [id number] [address] [place] [phone] Oct, [facility] [address] [facility] [id number] [address] [place] [address] Sep, Type 2 diabetes mellitus wit h complication E11.8 and Colon cancer screening Z12.11 [facility] [address] [facility] [id number] [address] [place] [address] Sep, Type 2 diabetes mellitus wit h complication E11.8 ; Colon cancer screening Z12.[address] [facility] [address] [facility] [id number] [address] [place] [address] August, Diabetes E11.9 [facility] [address] [facility] [id number] [address] [place] [address] [id number] Jul, Dental examination Z01.20 [facility] [address] [facility] [id number] [address] [place] [phone] 27 May, 2017 Mild intellectual disability F70 [place] [address] [facility] [id number] [address] [place] [address] May, Mild intellectual disability F70 ; High risk medication use Z79.899 ; Intermittent explosive disorder in adult F63.81 and Bipolar disorder, unspecified F31.9 [facility] [address] [facility] [id number] [address] [place] [address] May, [facility] [address] [facility] [id number] [address] [place] [phone] May, [facility] [address] [facility] [id number] [address] [place] [address] Apr, Type 2 diabetes mellitus wit h complication E11.8 ; Mild intellectual disability F70 ; Gastroesophageal reflux disease without esophagitis K21.9 ; Reactive airway disease, mild intermittent, uncomplicated J45.20 and Tobacco abuse Z72.0 [facility] [address] [facility] [id number] [address] [place] [address] Apr, High risk medication use Z79 .899 ; Mild intellectual disability F70 ; Intermittent explosive disorder in adult F63.81 and Bipolar disorder, unspecified F31.9 [facility] [address] [id number] [address] [place] [address] [id number] Mar, Encounter for dental exam an d cleaning w/o abnormal findings Z01.20 [facility] [address] [id number] [address] [place] [address] [phone] Mar, Dental examination Z01.20 [facility] [address] [id number] [address] [place] [phone] 12 Jan, 2017 [facility] [address] [id number] [address] [place] [phone] Jan, [facility] [address] [id number] [address] [place] [phone] 10 Jan, 2017 Mild intellectual disability F70 ; Bipolar disorder, unspecified F31.9 and Intermittent explosive disorder in adult F63.81 [facility] [address] [id number] [address] [place] [phone] 02 Jan, 2017 Diabetes E11.9 [facility] [address] [id number] [address] [place] [address] [id number] 13 Dec, 2016 Encounter for dental examina tion and cleaning without abnormal findings Z01.20 [facility] [address] [id number] [address] [place] [phone] 12 Dec, 2016 Bipolar disorder, unspecifie d F31.9 ; Intermittent explosive disorder in adult F63.81 and Mild intellectual disability F70 [facility] [address] [id number] [address] [place] [phone] Nov, Diabetes E11.9 [facility] [address] [id number] [address] [place] [phone] Nov, [facility] [address] [id number] [address] [place] [address] Nov, Diabetes E11.9 and Colon can cer screening Z12.[address] [facility] [address] [id number] [id number] 21 Sep, 2016 Dental examination Z01.20 [facility] [address] [id number] [address] [place] [address] [id number] 21 Sep, 2016 Encounter for dental examina tion and cleaning without abnormal findings Z01.20 [facility] [address] [id number] [address] [place] [phone] 13 Sep, 2016 Bipolar disorder, unspecifie d F31.9 [facility] [address] [id number] [address] [place] [id number] 12 Sep, 2016 Bipolar disorder, unspecifie d F31.9 [facility] [address] [facility] [id number] [address] [place] [phone] Jul, [facility] [address] [facility] [id number] [address] [place] [address] Jul, Type 2 diabetes mellitus wit h complication E11.8 [facility] [address] [facility] [id number] [address] [place] [address] [id number] 15 Jun, 2016 Encounter for dental examina tion and cleaning without abnormal findings [facility]01.20 [facility] [address] [facility] [address] [id number] [id number] 15 Jun, [address] [facility] [address] [facility] [id number] [address] [place] [phone] 18 Apr, [address]5 [facility] [address] [facility] [id number] [address] [place] [phone] 14 Mar, 2016 Bipolar disorder, in partial remission, most recent episode manic F31.73 and Intermittent explosive disorder in adult F63.81 [facility] [address] [facility] [id number] [address] [place] [phone] 08 Mar, 2016 [facility] [address] [facility] [id number] [address] [place] [phone] Mar, Diabetes E11.9 [facility] [address] [facility] [id number] [address] [place] [address] [phone] Feb, Encounter for dental examina tion and cleaning without abnormal findings Z01.20 [facility] [address] [id number] [address] [place] [phone] 22 Dec, 2015 Nocturnal hypoxemia G47.34 a nd Encounter for immunization Z23 [facility] [address] [id number] [address] [place] [phone] 15 Dec, 2015 [facility] [address] [facility] [id number] [address] [place] [phone] Dec, [facility] [address] [facility] [id number] [address] [place] [phone] Dec, Bipolar disorder, unspecifie d F31.9 [facility] [address] [id number] [address] [place] [address] [phone] Oct, Encounter for dental examina tion and cleaning without abnormal findings Z01.20 [facility] [id number] [place] [address] [id number] Oct, Dental examination Z01.20 [facility] [address] [facility] [id number] [address] [place] [phone] Oct, Diabetes E11.9 [place] [address] [facility] [id number] [address] [place] [phone] Oct, Diabetes E11.9 ; Reactive ai rway disease, mild intermittent, uncomplicated J45.20 and Tobacco abuse Z72.0 [facility] [address] [facility] [id number] [address] [place] [phone] Sep, Bipolar disorder, unspecifie d F31.9 and Depression F32.9 [place] [address] [facility] [id number] [address] [place] [phone] Sep, [place] [address] [facility] [id number] [address] [place] [phone] August, Tinea pedis of both feet B35 .3 and DM w/o complication type II, uncontrolled E11.65 [place] [address] [address] Jul, [place] [address] [address] Jul, [place] [address] [address] Jul, Obstructive sleep apnea G47. 33 [place] [address] [address] Jun, Diabetes E11.9 [place] [address] [address] Jun, [place] [address] [address] Jun, [place] [address] [address] Jun, Bipolar disorder, unspecifie d F31.9 and Mental retardation F79 [place] [address] [address] Apr, [place] [address] [address] Feb, Diabetes E11.9 ; Encounter f or immunization Z23 ; Cough R05 and Nicotine abuse Z72.0 [place] [address] [address] Jan, Bipolar disorder, unspecifie d F31.9 and Diabetes mellitus without mention of complication, type II or unspecified type, uncontrolled 250.02 [place] [address] [address] Jan, [place] [address] [address] Dec, Reactive airway disease 493. 90 and Enuresis 788.30 [place] [address] [address] Dec, [facility] [address] [facility] [id number] [address] [place] [phone] Nov, [facility] [address] [facility] [id number] [address] [place] [phone] Nov, [facility] [address] [facility] [id number] [address] [place] [phone] Nov, Annual physical exam V70.0 ; Urinary incontinence 788.30 ; Diabetes 250.[address] [facility] [address] [facility] [id number] [address] [place] [phone] Oct, Diabetes mellitus without me ntion of complication, type II or unspecified type, uncontrolled 250.02 [facility] [address] [facility] [id number] [address] [place] [phone] Oct, Diabetes mellitus without me ntion of complication, type II or unspecified type, uncontrolled 250.02 [facility] [address] [facility] [id number] [address] [place] [phone] Oct, Diabetes mellitus without me ntion of complication, type II or unspecified type, uncontrolled 250.02 [facility] [address] [facility] [id number] [address] [place] [address] Oct, [facility] [address] [id number] [address] [place] [phone] Oct, [facility] [address] [facility] [id number] [address] [place] [phone] Oct, Bipolar disorder, unspecifie d 296.80 [facility] [address] [id number] [address] [place] [address] [phone] Sep, Dental examination V72.2 [facility] [address] [facility] [id number] [address] [place] [phone] August, [facility] [address] [id number] [address] [place] [address] [id number] August, Dental examination V72.2 [facility] [address] [id number] [address] [place] [address], [place] [address] August, [facility] [address] [id number] [address] [place] [address], [place] [address] 14 Jul, 2014 [facility] [address] [id number] [address] [place] [address], [place] [address] Jul, [facility] [address] [id number] [address] [place] [address], [place] [address] Jun, [facility] [address] [id number] [address] [place] [address], [place] [address] Jun, [facility] [address] [id number] [address] [place] [address], [place] [address] Jun, [facility] [address] [id number] [address] [place] [address], [place] [address] Jun, [facility] [address] [id number] [address] [place] [phone] May, [facility] [address] [id number] [address] [place] [address], [place] [address] May, [facility] [address] [id number] [address] [place] [address] 16 May, 2014 [facility] [address] [id number] [address] [place] [address] 16 May, 2014 [facility] [address] [id number] [address] [place] [phone] May, 2014 [facility] [address] [id number] [address] [place] [address], [place] [address] May, 2014 [facility] [address] [id number] [address] [place] [phone] 16 May, 2014 [facility] [address] [id number] [address] [place] [phone] 16 May, 2014 [facility] [address] [id number] [address] [place] [address], [place] [address] 16 May, 2014 [facility] [address] [id number] [address] [place] [address], [place] [address] May, 2014 [facility] [address] [id number] [address] [place] [address], [place] [address] May, 2014 [facility] [address] [id number] [address] [place] [address], [place] [address] May, 2014 [facility] [address] [id number] [address] [place] [address], [place] [address] May, 2014 [facility] [address] [id number] [address] [place] [address], [place] [address] May, 2014 [facility] [address] [id number] [address] [place] [address], [place] [address] May, [facility] [address] [id number] [address] [place] [address], [place] [address] Apr, [facility] [address] [id number] [address] [place] [address], [place] [address] Apr, [facility] [address] [id number] [address] [place] [address], [place] [address] Apr, [facility] [address] [id number] [address] [place] [address], [place] [address] Apr, [facility] [address] [id number] [address] [place] [address], [place] [address] Apr, [facility] [address] [id number] [address] [place] [address], [place] [address] Apr, [facility] [address] [id number] [address] [place] [address], [place] [address] Apr, [facility] [address] [id number] [address] [place] [address], [place] [address] Apr, [facility] [address] [id number] [address] [place] [address], [place] [address] Apr, [facility] [address] [id number] [address] [place] [address], [place] [address] Apr, [facility] [address] [id number] [address] [place] [address], [place] [address] Apr, [facility] [address] [id number] [address] [place] [address], [place] [address] Apr, [facility] [address] [id number] [address] [place] [address], [place] [address] Mar, [facility] [address] [id number] [address] [place] [address], [place] [address] Mar, [facility] [address] [id number] [address] [place] [address], [place] [address] Mar, [facility] [address] [id number] [address] [place] [address], [place] [address] Mar, [facility] [address] [id number] [address] [place] [address], [place] [address] Mar, [facility] [address] [id number] [address] [place] [address], [place] [address] Mar, [facility] [address] [id number] [address] [place] [address], [place] [address] Feb, [facility] [address] [id number] [address] [place] [address], [place] [address] Feb, [facility] [address] [id number] [address] [place] [address], [place] [address] Feb, [facility] [address] [id number] [address] [place] [address], [place] [address] Feb, [facility] [address] [id number] [address] [place] [address], [place] [address] 14 Jan, 2014 [facility] [address] [id number] [address] [place] [address], [place] [address] 14 Jan, 2014 [facility] [address] [id number] [address] [place] [address], [place] [address] 14 Jan, 2014 [facility] [address] [id number] [address] [place] [address], [place] [address] 14 Jan, 2014 [facility] [address] [id number] [address] [place] [address], [place] [address] Dec, [facility] [address] [id number] [address] [place] [address], [place] [address] Dec, [facility] [address] [id number] [address] [place] [address], [place] [address] Dec, [facility] [address] [id number] [address] [place] [address], [place] [address] Dec, [facility] [address] [id number] [address] [place] [address], [place] [address] Nov, [facility] [address] [id number] [address] [place] [address], [place] [address] Nov, [facility] [address] [id number] [address] [place] [address], [place] [address] Nov, [facility] [address] [id number] [address] [place] [address], [place] [address] Nov, [facility] [address] [id number] [address] [place] [address], [place] [address] Nov, [facility] [address] [id number] [address] [place] [address], [place] [address] Nov, [facility] [address] [id number] [address] [place] [address], [place] [address] Nov, [facility] [address] [id number] [address] [place] [address], [place] [address] Oct, [facility] [address] [id number] [address] [place] [address], [place] [address] Oct, [facility] [address] [id number] [address] [place] [address], [place] [address] Oct, [facility] [address] [id number] [address] [place] [address], [place] [address] Oct, [facility] [address] [id number] [address] [place] [address], [place] [address] Oct, [facility] [address] [id number] [address] [place] [address], [place] [address] Oct, [facility] [address] [id number] [address] [place] [address], [place] [address] Oct, [facility] [address] [id number] [address] [place] [address], [place] [id number] Sep, [facility] [address] [id number] [address] [place] [address], [place] [id number] Sep, [facility] [address] [id number] [address] [place] [address], [place] [id number] Sep, [facility] [address] [id number] [address] [place] [address], [place] [id number] Sep, [facility] [address] [id number] [address] [place] [address], [place] [id number] Sep, [facility] [address] [id number] [address] [place] [address], [place] [id number] Jul, [facility] [address] [id number] [address] [place] [address], [place] [id number] Jul, [facility] [address] [id number] [address] [place] [address], [place] [id number] Jul, [facility] [address] [id number] [address] [place] [address], [place] [id number] Jul, [facility] [address] [id number] [address] [place] [address], [place] [id number] Jul, [facility] [address] [id number] [address] [place] [address], [place] [id number] Jul, [facility] [address] [id number] [address] [place] [address], [place] [id number] Jul, [facility] [address] [id number] [facility] [place] [id number] Jul, [facility] [address] [id number] [address] [place] [address], [place] [id number] Jul, [facility] [address] [id number] [address] [place] [address], [place] [id number] Jul, [facility] [address] [id number] [address] [place] [address], [place] [id number] Jul, [facility] [address] [id number] [address] [place] [address], [place] [id number] Jul, [facility] [address] [id number] [address] [place] [address], [place] [id number] Jun, [facility] [address] [id number] [address] [place] [address], [place] [id number] Jun, [facility] [address] [id number] [address] [place] [address], [place] [id number] Jun, [facility] [address] [id number] [address] [place] [address], [place] [id number] Jun, [facility] [address] [id number] [address] [place] [address], [place] [id number] Jun, [facility] [address] [id number] [address] [place] [address], [place] [id number] Jun, [facility] [address] [id number] [address] [place] [address], [place] [id number] Jun, [facility] [address] [id number] [address] [place] [address], [place] [id number] Jun, [facility] [address] [address] [id number] [address] [place] [address], [place] [address] May, [facility] [address] [id number] [address] [place] [address], [place] [address] May, [facility] [address] [id number] [address] [place] [address], [place] [address] May, [facility] [address] [id number] [address] [place] [address], [place] [address] May, [facility] [address] [id number] [address] [place] [address], [place] [address] May, [facility] [address] [id number] [address] [place] [address], [place] [address] May, [facility] [address] [id number] [address] [place] [address], [place] [address] May, [facility] [address] [id number] [address] [place] [address], [place] [address] May, [facility] [address] [id number] [address] [place] [address], [place] [address] Apr, [facility] [address] [id number] [address] [place] [address], [place] [address] Apr, [facility] [address] [id number] [address] [place] [address], [place] [id number] Apr, [facility] [address] [id number] [address] [place] [address], [place] [address] Apr, [facility] [address] [id number] [address] [place] [id number] Mar, [facility] [address] [id number] [address] [place] [id number] Mar, [facility] [address] [id number] [address] [place] [address], [place] [address] Mar, [facility] [address] [id number] [address] [place] [address], [place] [address] Feb, [facility] [address] [id number] [address] [place] [id number] Feb, [facility] [address] [id number] [address] [place] [address], [place] [address] Feb, [facility] [address] [id number] [address] [place] [address], [place] [id number] Feb, [facility] [address] [id number] [address] [place] [address], [place] [id number] Feb, [facility] [address] [id number] [address] [place] [address], [place] [address] Feb, [facility] [address] [id number] [address] [place] [address], [place] [id number] Jan, [facility] [address] [id number] [address] [place] [address], [place] [id number] Jan, [facility] [address] [id number] [address] [place] [address], [place] [address] Jan, [facility] [address] [id number] [address] [place] [address], [place] [address] Jan, [facility] [address] [id number] [address] [place] [address], [place] [address] Jan, [facility] [address] [id number] [address] [place] [address], [place] [address] Jan, [facility] [address] [id number] [address] [place] [address], [place] [address] Jan, [facility] [address] [id number] [address] [place] [address], [place] [address] 25 Dec, 2012 [facility] [address] [id number] [address] [place] [address], [place] [id number] 16 Dec, 2012 [facility] [address] [id number] [address] [place] [address], [place] [id number] 10 Dec, 2012 [facility] [address] [id number] [address] [place] [address], [place] [id number] 05 Dec, 2012 [facility] [address] [id number] [address] [place] [address], [place] [id number] Nov, [facility] [address] [id number] [address] [place] [address], [place] [address] Nov, [facility] [address] [id number] [address] [place] [address], [place] [address] Nov, [facility] [address] [id number] [address] [place] [address], [place] [address] Nov, [facility] [address] [id number] [address] [place] [address], [place] [address] Nov, [facility] [address] [id number] [address] [place] [address], [place] [address] Nov, [facility] [address] [id number] [address] [place] [address], [place] [id number] Nov, [facility] [address] [id number] [address] [place] [address], [place] [address] Oct, [facility] [address] [id number] [address] [place] [address], [place] [address] Oct, [facility] [address] [id number] [address] [place] [address], [place] [address] Oct, [facility] [address] [id number] [address] [place] [address], [place] [address] Oct, [facility] [address] [id number] [address] [place] [address], [place] [address] Oct, [facility] [address] [id number] [address] [place] [address], [place] [address] Oct, [facility] [address] [id number] [address] [place] [address], [place] [address] Oct, [facility] [address] [id number] [address] [place] [address], [place] [id number] Oct, [facility] [address] [id number] [address] [place] [address], [place] [address] Sep, [facility] [id number] [place] [id number] 30 Aug, 2012 [facility] [address] [id number] [address] [place] [address], [place] [id number] August, [facility] [address] [id number] [address] [place] [address], [place] [address] Jul, [facility] [address] [id number] [address] [place] [address], [place] [address] Jul, [facility] [address] [id number] [address] [place] [address], [place] [address] Jul, [facility] [address] [id number] [address] [place] [address], [place] [address] Jul, [facility] [address] [id number] [address] [place] [address], [place] [address] Jul, [facility] [address] [id number] [address] [place] [address], [place] [address] Jul, [facility] [address] [id number] [address] [place] [address], [place] [id number] Jul, [facility] [address] [id number] [address] [place] [address], [place] [address] Jun, [facility] [address] [id number] [address] [place] [address], [place] [address] Jun, [facility] [address] [id number] [address] [place] [id number] Jun, [facility] [address] [id number] [address] [place] [id number] Jun, [facility] [address] [id number] [address] [place] [address], [place] [address] Jun, [facility] [address] [id number] [address] [place] [id number] May, [facility] [address] [id number] [address] [place] [id number] May, [facility] [address] [id number] [address] [place] [address], [place] [id number] 04 May, 2012 [facility] [address] [id number] [address] [place] [address], [place] [id number] 15 Apr, 2012 [facility] [address] [id number] [address] [place] [address], [place] [id number] 14 Apr, 2012 [facility] [address] [id number] [address] [place] [address], [place] [address] Apr, [facility] [address] [id number] [address] [place] [address], [place] [id number] Mar, [facility] [address] [id number] [address] [place] [address], [place] [address] Mar, [facility] [address] [id number] [address] [place] [address], [place] [address] Mar, [facility] [address] [id number] [address] [place] [address], [place] [address] Mar, [facility] [address] [id number] [address] [place] [address], [place] [address] Mar, [facility] [address] [id number] [address] [place] [address], [place] [address] Mar, [facility] [address] [id number] [address] [place] [address], [place] [id number] Feb, [facility] [address] [id number] [address] [place] [address], [place] [address] Feb, [facility] [address] [id number] [address] [place] [address], [place] [address] Jan, [facility] [address] [id number] [address] [place] [address], [place] [id number] Jan, [facility] [address] [id number] [address] [place] [address], [place] [address] Dec, [facility] [address] [id number] [address] [place] [address], [place] [address] Nov, [facility] [address] [id number] [address] [place] [address], [place] [address] Nov, [facility] [address] [id number] [address] [place] [address], [place] [address] Nov, [facility] [address] [id number] [address] [place] [address], [place] [address] Nov, [facility] [address] [id number] [address] [place] [address], [place] [id number] Oct, [facility] [address] [id number] [address] [place] [address], [place] [address] Oct, [facility] [address] [id number] [address] [place] [address], [place] [address] Oct, [facility] [address] [id number] [address] [place] [address], [place] [address] Sep, [facility] [address] [id number] [address] [place] [address], [place] [address] Sep, [facility] [address] [id number] [address] [place] [address], [place] [address] Sep, [facility] [address] [id number] [address] [place] [address], [place] [address] August, [facility] [address] [id number] [address] [place] [address], [place] [address] August, [facility] [address] [id number] [address] [place] [address], [place] [id number] Jul, [facility] [address] [id number] [address] [place] [address], [place] [id number] 24 Jul, 2011 [facility] [address] [id number] [address] [place] [address], [place] [address] Jul, [facility] [address] [id number] [address] [place] [address], [place] [address] Jul, [facility] [address] [id number] [address] [place] [address], [place] [id number] 14 Jun, 2011 [facility] [address] [id number] [address] [place] [address], [place] [address] May, [facility] [address] [id number] [address] [place] [address], [place] [id number] Apr, [facility] [address] [id number] [address] [place] [address], [place] [address] Apr, [facility] [address] [id number] [address] [place] [address], [place] [address] Apr, [facility] [address] [id number] [address] [place] [address], [place] [address] Apr, [facility] [address] [id number] [address] [place] [address], [place] [address] Apr, [facility] [address] [id number] [address] [place] [address], [place] [address] Apr, [facility] [address] [id number] [address] [place] [address], [place] [address] Mar, [facility] [address] [id number] [address] [place] [address], [place] [address] Mar, [facility] [address] [id number] [address] [place] [address], [place] [address] Feb, [facility] [address] [id number] [address] [place] [address], [place] [id number] 18 Feb, 2011 [facility] [address] [id number] [address] [place] [address], [place] [id number] 17 Feb, 2011 [facility] [address] [id number] [address] [place] [address], [place] [id number] 09 Feb, 2011 [facility] [address] [id number] [address] [place] [address], [place] [id number] 20 Jan, 2011 [facility] [address] [id number] [address] [place] [id number] 18 Jan, 2011 [facility] [address] [id number] [address] [place] [address], [place] [id number] 18 Jan, 2011 [facility] [address] [id number] [address] [place] [address], [place] [id number] 18 Jan, 2011 [facility] [address] [id number] [address] [place] [address], [place] [id number] 17 Nov, 2010 [facility] [address] [id number] [address] [place] [address], [place] [address] Mar, [facility] [address] [id number] [address] [place] [address], [place] [address] Mar, [facility] [address] [id number] [address] [place] [address], [place] [id number] 30 Feb, 2010 [facility] [address] [id number] [address] [place] [address], [place] [id number] 15 Feb, 2010 [facility] [address] [id number] [address] [place] [address], [place] [address] Jan, [facility] [address] [id number] [address] [place] [address], [place] [id number] Jan, [facility] [address] [id number] [address] [place] [address], [place] [address] Sep, [facility] [address] [id number] [address] [place] [address], [place] [id number] May, [facility] [address] [id number] [address] [place] [address], [place] [id number] Apr, [facility] [address] [id number] [address] [place] [address], [place] [id number] Mar, [facility] [address] [id number] [address] [place] [address], [place] [id number] 15 Feb, 2009 [facility] [address] [id number] [address] [place] [address], [place] [address] 10 Feb, 2009 [facility] [address] [id number] [address] [place] [id number] Feb, [facility] [address] [facility] [id number] [address] [place] [id number] Jan, [facility] [address] [facility] [id number] [address] [place] [id number] Jan, [facility] [address] [facility] [id number] [address] [place] [id number] Jan, [facility] [address] [facility] [id number] [address] [place] [id number] Jan, [facility] [address] [facility] [id number] [address] [place] [id number] August, IMMUNIZATIONS No Known Immunizations SOCIAL HISTORY Never Assessed REASON FOR VISIT f/u----DBennettVIANCA PLAN OF CARE Activity Details Follow Up 4 Weeks Reason: VITAL SIGNS Height 65 in 2017-04-30 Weight 205 lbs 2017-04-30 Heart Rate 90 bpm 2017-04-30 Respiratory Rate 20 2017-04-30 BMI 34.11 kg/m2 2017-04-30 Blood pressure systolic 100 mmHg 2017-04-30 Blood pressure diastolic 70 mmHg 2017-04-30 MEDICATIONS Medication Instructions Dosage Frequency Start Date End Date Duration S arnel Tamsulosin HCl 0.4 MG TAKE TWO CAPSULES ORALLY DAILY 30 MINUTES AFTER THE SAME MEAL EACH DAY 31 Active GlyBURIDE 2.5 MG Orally 2 times a day 0.5 tablet 12h 31 Active TRUEtest Test - test blood sugar 12h Nov, Active Toviaz 8 MG Orally Once a day 1 tablet 24h A ctive Albuterol Sulfate 2.5 mg /3 mL (0.083 %) 1 Each by Inhalation route 4 times per day for cough and wheeze PRN for wheezing or cough Dec, 4 Active Actos 15 MG take 1 tablet (15 mg) by oral route once daily 31 Active Quetiapine Fumarate 100 MG Orally every morning 1 tablet 30 days Active Cetirizine HCl 10 MG TAKE 1 TABLET ORALLY DAILY 31 Active Singulair 10 mg Orally Once a day at hs and take Zyrtec in AM 1 tablet in the evening Oct, 31 Active desmopressin 0.2 mg 3 Tablet by Oral route 1 time per day qHS Jul, 30 days Active Ventolin HFA 108 (90 Base) MCG/ACT Inhalation every 4 hrs 2 puffs a s needed 4h Active Omeprazole 20 MG Orally 2 times a day 1 capsule 12h 30 Active Depakote ER 500 MG Orally every night 2 tablet 3 0 days Active TRUEplus Lancets 33G - test blood sugar 12h Jan, Active Simvastatin 20 MG Orally Once a day 1 tablet at bedtime 24h 31 Active Metoprolol Tartrate 25 MG Orally Twice a day 1 tablet with food 12h 31 Active Diovan HCT 80-12.5 MG Orally Once a day 1 tablet 24h 31 Active Folic Acid 1 MG take 0.5 tablet by Oral route 1 time per day 31 Active Seroquel 300 MG Orally Once a day 1.5 tablets every ni ght for 3 nights, then take 2 tablets every night 24h 30 days A ctive GNP Natural Fiber 0.52 GM Orally Once a day 3 capsules 24h 31 Active RESULTS No Results PROCEDURES No [...] Hospitalization History [facility], inga akbar treatment few times for BH
--- OUTSIDE RECORDS SUMMARY | 2019-09-29 11:02 | XMS REPORT ---
Author Author Cameron RICHARDS [facility] Address [address] [place] [address] Phone Unavailable Care Team Providers Care Lieutenant Firefighter Name Role Phone DEVORAH RICHARDS Unavailable Unavailable PROBLEMS Type Condition ICD9-CM Code ZZY85-AI Code Onset Dates Condition S tatus SNOMED Code Problem Diabetes E11.9 Active 62061148 Problem Intermittent explosive disorder in adult F63.81 Active 56039049 Problem Bipolar disorder, in partial remission, most rec ent episode manic F31.73 Active 24996703 Problem Neuropathy G62.9 Active 795567193 Problem Other diabetic neurological complication associated with type 2 diabetes mellitus E11.49 Active 954606545 Problem Mild intellectual disability F70 A ctive 64371934 Problem Bipolar disorder, unspecified F31.9 Active 56607476 Problem Gastroesophageal reflux disease without esophagitis K21.9 Active 801423275 Problem Reactive airway disease, mild intermittent, uncomplicated J45.20 Active 578276158 Problem Adjustment disorder, unspecified type F43.20 Active 60891540 Problem Open-angle glaucoma of both eyes, unspecified glaucoma stage, unspecified open-angle glaucoma type H40.10X0 Acti ve 45874634 Problem 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 Active 30790607 Problem Reactive airway disease, unspecified asthma justin rity, uncomplicated J45.909 Active 381896157972 Problem Essential hypertension I10 Active 61175074 Problem Type 2 diabetes mellitus with complication E11.8 Active 48040347 Problem Hypertensive retinopathy of both eyes H35.033 Active 7176326 Problem Intermittent explosive disorder F63.81 Active 40563252 Problem Obstructive sleep apnea G47.33 Active 84102621 Problem Depression F32.9 Active 91460978 ALLERGIES No Known Allergies ENCOUNTERS Encounter Location Date Diagnosis [facility] [address] [facility] [id number] [address] [place] [phone] Apr, [facility] [address] [facility] [id number] [address] [place] [phone] Jan, [facility] [address] [facility] [id number] [address] [place] [phone] Nov, [facility] [address] [facility] [id number] [address] [place] [phone] Oct, Intermittent explosive disor salvatore in adult F63.81 ; Bipolar disorder, unspecified F31.9 and Mild intellectual disability F70 [facility] [address] [facility] [id number] [address] [place] [phone] Oct, [facility] [address] [facility] [id number] [address] [place] [address] [id number] Oct, Dental examination Z01.20 [facility] [address] [place] [id number] [address] [place] [address] Oct, Onychomycosis B35.1 and Othe r diabetic neurological complication associated with type 2 diabetes mellitus E11.49 [place] [address] [place] [id number] [address] [place] [address] Sep, Type 2 diabetes mellitus wit h complication E11.8 and Colon cancer screening Z12.11 [facility] [address] [place] [id number] [address] [place] [address] Sep, Type 2 diabetes mellitus wit h complication E11.8 ; Colon cancer screening Z12.11 and Neuropathy G62.9 [facility] [address] [facility] [id number] [address] [place] [address] August, Diabetes E11.9 [facility] [address] [id number] [address] [place] [address] [id number] Jul, Dental examination Z01.20 [facility] [address] [facility] [id number] [address] [place] [address] 27 May, 2017 Mild intellectual disability F70 [facility] [address] [facility] [id number] [address] [place] [id number] 07 May, 2017 Mild intellectual disability F70 ; High risk medication use Z79.899 ; Intermittent explosive disorder in adult F63.81 and Bipolar disorder, unspecified F31.9 [facility] [address] [id number] [address] [place] [address] May, [facility] [address] [id number] [address] [place] [address] May, [facility] [address] [id number] [address] [place] [phone] Apr, Type 2 diabetes mellitus wit h complication E11.8 ; Mild intellectual disability F70 ; Gastroesophageal reflux disease without esophagitis K21.9 ; Reactive airway disease, mild intermittent, uncomplicated J45.20 and Tobacco abuse Z72.0 [facility] [address] [id number] [address] [place] [address] Apr, High risk medication use Z79 .899 ; Mild intellectual disability F70 ; Intermittent explosive disorder in adult F63.81 and Bipolar disorder, unspecified F31.9 [facility] [id number] [place] [address] [id number] Mar, Encounter for dental exam an d cleaning w/o abnormal findings Z01.20 [facility] [address] [id number] [address] [place] [address] [id number] Mar, Dental examination Z01.20 [facility] [address] [id number] [address] [place] [address] 12 Jan, 2017 [facility] [address] [id number] [address] [place] [address] Jan, [facility] [address] [id number] [address] [place] [address] Jan, Mild intellectual disability F70 ; Bipolar disorder, unspecified F31.9 and Intermittent explosive disorder in adult F63.81 [facility] [address] [id number] [address] [place] [phone] 02 Jan, 2017 Diabetes E11.9 [facility] [address] [id number] [address] [place] [address] [id number] Dec, Encounter for dental examina tion and cleaning without abnormal findings Z01.20 [facility] [address] [id number] [address] [place] [phone] 12 Dec, 2016 Bipolar disorder, unspecifie d F31.9 ; Intermittent explosive disorder in adult F63.81 and Mild intellectual disability F70 [facility] [address] [id number] [address] [place] [address] Nov, Diabetes E11.9 [facility] [address] [id number] [address] [place] [address] Nov, [facility] [address] [id number] [address] [place] [address] Nov, Diabetes E11.9 and Colon can cer screening Z12.11 [facility] [address] [id number] [id number] Sep, Dental examination Z01.20 [facility] [address] [id number] [address] [place] [address] [id number] Sep, Encounter for dental examina tion and cleaning without abnormal findings Z01.20 [facility] [address] [id number] [address] [place] [phone] Sep, Bipolar disorder, unspecifie d F31.9 [facility] [address] [id number] [address] [place] [address] Sep, Bipolar disorder, unspecifie d F31.9 [facility] [address] [id number] [address] [place] [id number] Jul, [facility] [address] [id number] [address] [place] [phone] Jul, Type 2 diabetes mellitus wit h complication E11.8 [facility] [address] [id number] [address] [place] [address] [id number] Jun, Encounter for dental examina tion and cleaning without abnormal findings Z01.20 [facility] [address] [id number] [id number] Jun, Dental examination Z01.20 [facility] [address] [id number] [address] [place] [phone] 18 Apr, 2016 Sports physical Z02.5 [facility] [address] [id number] [address] [place] [phone] 14 Mar, 2016 Bipolar disorder, in partial remission, most recent episode manic F31.73 and Intermittent explosive disorder in adult F63.81 [facility] [address] [id number] [address] [place] [phone] 08 Mar, 2016 [facility] [address] [id number] [address] [place] [phone] 06 Mar, 2016 Diabetes E11.9 [facility] [address] [id number] [address] [place] [address] [id number] Feb, Encounter for dental examina tion and cleaning without abnormal findings Z01.20 [facility] [address] [id number] [address] [place] [phone] 22 Dec, 2015 Nocturnal hypoxemia G47.34 a nd Encounter for immunization Z23 [facility] [address] [id number] [address] [place] [phone] 15 Dec, 2015 [facility] [address] [id number] [address] [place] [phone] Dec, [facility] [address] [id number] [address] [place] [phone] Dec, Bipolar disorder, unspecifie d F31.9 [facility] [address] [id number] [address] [place] [address] [id number] Oct, Encounter for dental examina tion and cleaning without abnormal findings Z01.20 [facility] [address] [id number] [id number] Oct, Dental examination Z01.20 [facility] [address] [id number] [address] [place] [phone] Oct, Diabetes E11.9 [facility] [address] [facility] [id number] [address] [place] [phone] Oct, Diabetes E11.9 ; Reactive ai rway disease, mild intermittent, uncomplicated J45.20 and Tobacco abuse Z72.0 [facility] [address] [facility] [id number] [address] [place] [address] Sep, Bipolar disorder, unspecifie d F31.9 and Depression F32.9 [place] [address] [facility] [id number] [address] [place] [phone] Sep, [place] [address] [place] [id number] [address] [place] [phone] August, Tinea pedis of both feet B35 .3 and DM w/o complication type II, uncontrolled E11.65 [place] [address] [place] [id number] [address] [place] [phone] Jul, [place] [address] [place] [id number] [address] [place] [phone] Jul, [place] [address] [place] [id number] [address] [place] [phone] Jul, Obstructive sleep apnea G47. 33 [facility] [address] [facility] [id number] [address] [place] [phone] Jun, Diabetes E11.9 [facility] [address] [facility] [id number] [address] [place] [phone] Jun, [facility] [address] [facility] [id number] [address] [place] [phone] Jun, [facility] [address] [facility] [id number] [address] [place] [phone] Jun, Bipolar disorder, unspecifie d F31.9 and Mental retardation F79 [facility] [address] [facility] [id number] [address] [place] [phone] Apr, [facility] [address] [place] [id number] [address] [place] [phone] Feb, Encounter for immunization Z 23 ; Diabetes E11.9 ; Cough R05 and Nicotine abuse Z72.0 [place] [address] [phone] Jan, Bipolar disorder, unspecifie d F31.9 and Diabetes mellitus without mention of complication, type II or unspecified type, uncontrolled 250.02 [place] [address] [address] Jan, [place] [address] [address] Dec, Reactive airway disease 493. 90 and Enuresis 788.[address] [address] Dec, [place] [address] [address] Nov, [place] [address] [address] Nov, [address] [address] Nov, Annual physical exam V70.0 ; Urinary incontinence 788.30 ; Diabetes 250.00 and Hypertension 401.[address] [address] Oct, Diabetes mellitus without me ntion of complication, type II or unspecified type, uncontrolled 250.02 [place] [address] [address] Oct, Diabetes mellitus without me ntion of complication, type II or unspecified type, uncontrolled 250.02 [place] [address] [id number] Oct, Diabetes mellitus without me ntion of complication, type II or unspecified type, uncontrolled 250.02 [place] [address] [phone] Oct, [facility] [address] [id number] [address] [place] [phone] Oct, [facility] [address] [id number] [address] [place] [phone] Oct, Bipolar disorder, unspecifie d 296.80 [facility] [address] [id number] [address] [place] [address] [id number] Sep, Dental examination V72.2 [facility] [address] [id number] [address] [place] [address] August, [facility] [address] [id number] [address] [place] [address] [id number] August, Dental examination V72.2 [facility] [address] [id number] [address] [place] [phone] August, [facility] [address] [id number] [address] [place] [phone] Jul, [facility] [address] [id number] [address] [place] [phone] Jul, [facility] [address] [id number] [address] [place] [phone] Jun, [facility] [address] [id number] [address] [place] [phone] Jun, [facility] [address] [id number] [address] [place] [phone] Jun, [facility] [address] [id number] [address] [place] [phone] Jun, [facility] [address] [id number] [address] [place] [phone] May, [facility] [address] [id number] [address] [place] [phone] May, [facility] [address] [id number] [address] [place] [phone] 16 May, 2014 [facility] [address] [id number] [address] [place] [address], [place] [address] 16 May, 2014 [facility] [address] [id number] [address] [place] [address], [place] [address] 16 May, 2014 [facility] [address] [id number] [address] [place] [address], [place] [address] 16 May, 2014 [facility] [address] [id number] [address] [place] [address], [place] [address] 16 May, 2014 [facility] [address] [id number] [address] [place] [address], [place] [address] May, 2014 [facility] [address] [id number] [address] [place] [address], [place] [address] 16 May, 2014 [facility] [address] [id number] [address] [place] [address], [place] [address] 16 May, 2014 [facility] [address] [id number] [address] [place] [address], [place] [address] 16 May, 2014 [facility] [address] [id number] [address] [place] [address], [place] [address] 16 May, 2014 [facility] [address] [id number] [address] [place] [address], [place] [address] 16 May, 2014 [facility] [address] [id number] [address] [place] [address], [place] [address] May, 2014 [facility] [address] [id number] [address] [place] [address], [place] [address] May, 2014 [facility] [address] [id number] [address] [place] [address], [place] [address] Apr, [facility] [address] [id number] [address] [place] [address], [place] [address] Apr, [facility] [address] [id number] [address] [place] [phone] Apr, [facility] [address] [id number] [address] [place] [address], [place] [address] Apr, [facility] [address] [id number] [address] [place] [address], [place] [address] Apr, [facility] [address] [id number] [address] [place] [address], [place] [address] Apr, [facility] [address] [id number] [address] [place] [address], [place] [address] Apr, [facility] [address] [id number] [address] [place] [address], [place] [address] Apr, [facility] [address] [id number] [address] [place] [address], [place] [address] Apr, [facility] [address] [id number] [address] [place] [address], [place] [address] Apr, [facility] [address] [id number] [address] [place] [address], [place] [address] Apr, [facility] [address] [id number] [address] [place] [address], [place] [address] Apr, [facility] [address] [id number] [address] [place] [address], [place] [address] Mar, [facility] [address] [id number] [address] [place] [address], [place] [address] Mar, [facility] [address] [id number] [address] [place] [address], [place] [address] Mar, [facility] [address] [id number] [address] [place] [address], [place] [address] Mar, [facility] [address] [id number] [address] [place] [address], [place] [address] Mar, [facility] [address] [id number] [address] [place] [address], [place] [address] Mar, [facility] [address] [id number] [address] [place] [address], [place] [address] 13 Feb, 2014 [facility] [address] [id number] [address] [place] [address], [place] [address] 13 Feb, 2014 [facility] [address] [id number] [address] [place] [address], [place] [address] 13 Feb, 2014 [facility] [address] [id number] [address] [place] [address], [place] [address] Feb, [facility] [address] [id number] [address] [place] [address], [place] [address] 14 Jan, 2014 [facility] [address] [id number] [address] [place] [address], [place] [address] 14 Jan, 2014 [facility] [address] [id number] [address] [place] [address], [place] [address] 14 Jan, 2014 [facility] [address] [id number] [address] [place] [address], [place] [address] 14 Jan, 2014 [facility] [address] [id number] [address] [place] [address], [place] [address] 22 Dec, 2013 [facility] [address] [id number] [address] [place] [address], [place] [address] 22 Dec, 2013 [facility] [address] [id number] [address] [place] [address], [place] [address] 15 Dec, 2013 [facility] [address] [id number] [address] [place] [address], [place] [address] 15 Dec, 2013 [facility] [address] [id number] [address] [place] [address], [place] [address] Nov, [facility] [address] [id number] [address] [place] [address], [place] [address] Nov, [facility] [address] [id number] [address] [place] [address], [place] [address] Nov, [facility] [address] [id number] [address] [place] [address], [place] [address] Nov, [facility] [address] [id number] [facility] [place] [address] Nov, [facility] [address] [id number] [facility] [place] [address] Nov, [facility] [address] [id number] [facility] [place] [address] Nov, [facility] [address] [id number] [address] [place] [address], [place] [address] Oct, [facility] [address] [id number] [address] [place] [address], [place] [address] Oct, [facility] [address] [id number] [address] [place] [address], [place] [address] Oct, [facility] [address] [id number] [address] [place] [address], [place] [address] Oct, [facility] [address] [id number] [address] [place] [address], [place] [address] Oct, [facility] [address] [id number] [address] [place] [address], [place] [address] Oct, [facility] [address] [id number] [address] [place] [address], [place] [address] Oct, [facility] [address] [id number] [address] [place] [address], [place] [address] Sep, [facility] [address] [id number] [address] [place] [address], [place] [address] Sep, [facility] [address] [id number] [address] [place] [address], [place] [address] Sep, [facility] [address] [id number] [address] [place] [address], [place] [address] Sep, [facility] [address] [id number] [address] [place] [address], [place] [address] Sep, [facility] [address] [id number] [address] [place] [address], [place] [address] Jul, [facility] [address] [id number] [address] [place] [address], [place] [address] Jul, [facility] [address] [id number] [address] [place] [address], [place] [address] Jul, [facility] [address] [id number] [address] [place] [address], [place] [address] Jul, [facility] [address] [id number] [address] [place] [address], [place] [address] Jul, [facility] [address] [id number] [address] [place] [address], [place] [address] Jul, [facility] [address] [id number] [address] [place] [address], [place] [address] Jul, [facility] [address] [id number] [address] [place] [address], [place] [address] Jul, [facility] [address] [id number] [address] [place] [address], [place] [address] Jul, [facility] [address] [id number] [address] [place] [address], [place] [address] Jul, [facility] [address] [id number] [address] [place] [address], [place] [address] Jul, [facility] [address] [id number] [address] [place] [address], [place] [address] Jul, [facility] [address] [id number] [address] [place] [address], [place] [address] Jun, [facility] [address] [id number] [address] [place] [address], [place] [address] Jun, [facility] [address] [id number] [address] [place] [address], [place] [address] Jun, [facility] [address] [id number] [address] [place] [address], [place] [address] Jun, [facility] [address] [id number] [address] [place] [address], [place] [address] Jun, [facility] [address] [id number] [address] [place] [address], [place] [address] Jun, [facility] [address] [id number] [address] [place] [address], [place] [address] Jun, [facility] [address] [id number] [address] [place] [address], [place] [address] Jun, [facility] [address] [id number] [address] [place] [address], [place] [address] May, [facility] [address] [id number] [address] [place] [address], [place] [address] May, [facility] [address] [id number] [address] [place] [address], [place] [address] May, [facility] [address] [id number] [address] [place] [address], [place] [address] May, [facility] [address] [id number] [address] [place] [address], [place] [address] May, [facility] [address] [id number] [address] [place] [address], [place] [address] May, [facility] [address] [id number] [address] [place] [address], [place] [address] May, [facility] [address] [id number] [address] [place] [address], [place] [address] May, [facility] [address] [id number] [address] [place] [address], [place] [address] Apr, [facility] [address] [id number] [address] [place] [address], [place] [address] Apr, [facility] [address] [id number] [address] [place] [address], [place] [address] Apr, [facility] [address] [id number] [address] [place] [address], [place] [address] Apr, [facility] [address] [id number] [address] [place] [address], [place] [address] Mar, [facility] [address] [id number] [address] [place] [address], [place] [address] Mar, [facility] [address] [id number] [address] [place] [address], [place] [address] Mar, [facility] [address] [id number] [address] [place] [address] Feb, [facility] [address] [id number] [address] [place] [address], [place] [address] Feb, [facility] [address] [id number] [address] [place] [address], [place] [address] Feb, [facility] [address] [id number] [address] [place] [address], [place] [address] Feb, [facility] [address] [id number] [address] [place] [address], [place] [address] Feb, [facility] [address] [id number] [address] [place] [address], [place] [address] Feb, [facility] [address] [id number] [address] [place] [address], [place] [address] Jan, [facility] [address] [id number] [address] [place] [address], [place] [address] Jan, [facility] [address] [id number] [address] [place] [address] Jan, [facility] [address] [id number] [address] [place] [address], [place] [address] Jan, [facility] [address] [id number] [address] [place] [address], [place] [address] Jan, [facility] [address] [id number] [address] [place] [address], [place] [address] Jan, [facility] [address] [id number] [address] [place] [address], [place] [address] 2013 [facility] [address] [id number] [address] [place] [address], [place] [address] 25 Dec, 2012 [facility] [address] [id number] [address] [place] [address], [place] [address] 16 Dec, 2012 [facility] [address] [id number] [address] [place] [address], [place] [address] Dec, [facility] [address] [id number] [address] [place] [address], [place] [address] 05 Dec, 2012 [facility] [address] [id number] [address] [place] [address], [place] [address] Nov, [facility] [address] [id number] [address] [place] [address], [place] [address] Nov, [facility] [address] [id number] [address] [place] [address], [place] [address] Nov, [facility] [address] [id number] [address] [place] [address], [place] [address] Nov, [facility] [address] [id number] [address] [place] [address], [place] [address] Nov, [facility] [address] [id number] [address] [place] [address], [place] [address] Nov, [facility] [address] [id number] [address] [place] [address], [place] [address] Nov, [facility] [address] [id number] [address] [place] [address], [place] [address] Oct, [facility] [address] [id number] [address] [place] [address], [place] [address] Oct, [facility] [address] [id number] [address] [place] [address], [place] [address] Oct, [facility] [address] [id number] [address] [place] [address], [place] [address] Oct, [facility] [address] [id number] [address] [place] [address], [place] [address] Oct, [facility] [address] [id number] [address] [place] [address], [place] [address] Oct, [facility] [address] [id number] [address] [place] [address], [place] [address] Oct, [facility] [address] [id number] [address] [place] [address], [place] [address] Oct, [facility] [address] [id number] [address] [place] [address], [place] [address] Sep, Suleiman PEREZ [address] [id number] [id number] August, [facility] [address] [id number] [address] [place] [address], [place] [address] August, [facility] [address] [id number] [address] [place] [address], [place] [address] Jul, [facility] [address] [id number] [address] [place] [address], [place] [address] Jul, [facility] [address] [id number] [address] [place] [address], [place] [address] Jul, [facility] [address] [id number] [address] [place] [address], [place] [address] Jul, [facility] [address] [id number] [address] [place] [address], [place] [address] 18 Jul, 2012 [facility] [address] [id number] [address] [place] [address], [place] [address] 17 Jul, 2012 [facility] [address] [id number] [address] [place] [address], [place] [address] 16 Jul, 2012 [facility] [address] [id number] [address] [place] [address], [place] [address] Jun, [facility] [address] [id number] [address] [place] [address], [place] [address] 18 Jun, 2012 [facility] [address] [id number] [address] [place] [address], [place] [address] 11 Jun, 2012 [facility] [address] [id number] [address] [place] [address], [place] [address] 04 Jun, 2012 [facility] [address] [id number] [address] [place] [address], [place] [address] 04 Jun, 2012 [facility] [address] [id number] [address] [place] [address], [place] [address] 19 May, 2012 [facility] [address] [id number] [address] [place] [address], [place] [address] 18 May, 2012 [facility] [address] [id number] [address] [place] [address], [place] [address] 04 May, 2012 [facility] [address] [id number] [address] [place] [address], [place] [address] 15 Apr, 2012 [facility] [address] [id number] [address] [place] [address], [place] [address] 14 Apr, 2012 [facility] [address] [id number] [address] [place] [address], [place] [address] 07 Apr, 2012 [facility] [address] [id number] [address] [place] [address], [place] [address] 31 Mar, 2012 [facility] [address] [id number] [address] [place] [address], [place] [address] 31 Mar, 2012 [facility] [address] [id number] [address] [place] [address], [place] [address] 13 Mar, 2012 [facility] [address] [id number] [address] [place] [address], [place] [address] 13 Mar, 2012 [facility] [address] [id number] [address] [place] [address], [place] [address] 10 Mar, 2012 [facility] [address] [id number] [address] [place] [address], [place] [address] Mar, [facility] [address] [id number] [address] [place] [address], [place] [address] Feb, [facility] [address] [id number] [address] [place] [address], [place] [address] Feb, [facility] [address] [id number] [address] [place] [address], [place] [address] Jan, [facility] [address] [id number] [address] [place] [address], [place] [address] Jan, [facility] [address] [id number] [address] [place] [address], [place] [address] Dec, [facility] [address] [id number] [address] [place] [address], [place] [address] Nov, [facility] [address] [id number] [address] [place] [address], [place] [address] Nov, [facility] [address] [id number] [address] [place] [address], [place] [address] Nov, [facility] [address] [id number] [address] [place] [address], [place] [address] Nov, [facility] [address] [id number] [address] [place] [address], [place] [address] Oct, [facility] [address] [id number] [address] [place] [address], [place] [address] Oct, [facility] [address] [id number] [address] [place] [address], [place] [address] Oct, [facility] [address] [id number] [address] [place] [address], [place] [address] Sep, [facility] [address] [id number] [address] [place] [address], [place] [address] Sep, [facility] [address] [id number] [address] [place] [address], [place] [address] Sep, [facility] [address] [id number] [address] [place] [address], [place] [address] August, [facility] [address] [id number] [address] [place] [address], [place] [address] August, [facility] [address] [id number] [address] [place] [address], [place] [address] Jul, [facility] [address] [id number] [address] [place] [address], [place] [address] Jul, [facility] [address] [id number] [address] [place] [address], [place] [address] Jul, [facility] [address] [id number] [address] [place] [address], [place] [address] Jul, [facility] [address] [id number] [address] [place] [address], [place] [address] Jun, [facility] [address] [id number] [address] [place] [address], [place] [address] May, [facility] [address] [id number] [address] [place] [address], [place] [address] Apr, [facility] [address] [id number] [address] [place] [address], [place] [address] Apr, [facility] [address] [id number] [address] [place] [address], [place] [address] Apr, [facility] [address] [id number] [address] [place] [address], [place] [address] Apr, [facility] [address] [id number] [address] [place] [address], [place] [address] Apr, [facility] [address] [id number] [address] [place] [address], [place] [address] Apr, [facility] [address] [id number] [address] [place] [address], [place] [address] Mar, [facility] [address] [id number] [address] [place] [address], [place] [address] Mar, [facility] [address] [id number] [address] [place] [address], [place] [address] 29 Feb, 2011 [facility] [address] [id number] [address] [place] [address], [place] [address] 18 Feb, 2011 [facility] [address] [id number] [address] [place] [address], [place] [address] Feb, [facility] [address] [id number] [address] [place] [address], [place] [address] Feb, [facility] [address] [id number] [address] [place] [address], [place] [address] Jan, [facility] [address] [id number] [address] [place] [address], [place] [address] Jan, [facility] [address] [id number] [address] [place] [address], [place] [address] Jan, [facility] [address] [id number] [address] [place] [address], [place] [address] Jan, [facility] [address] [id number] [address] [place] [address], [place] [address] Nov, [facility] [address] [id number] [address] [place] [address], [place] [address] Mar, [facility] [address] [id number] [address] [place] [address], [place] [address] Mar, [facility] [address] [id number] [address] [place] [address], [place] [address] 30 Feb, 2010 [facility] [address] [id number] [address] [place] [address], [place] [address] 15 Feb, 2010 [facility] [address] [id number] [address] [place] [address], [place] [address] Jan, [facility] [address] [id number] [address] [place] [address], [place] [address] Jan, [facility] [address] [id number] [address] [place] [address], [place] [address] Sep, [facility] [address] [id number] [address] [place] [address] 16 May, 2009 [facility] [address] [id number] [address] [place] [address] Apr, [facility] [address] [id number] [address] [place] [address] Mar, [facility] [address] [id number] [address] [place] [address] Feb, [facility] [address] [id number] [address] [place] [address] Feb, [facility] [address] [id number] [address] [place] [address] Feb, [facility] [address] [id number] [address] [place] [address] Jan, [facility] [address] [id number] [address] [place] [address] Jan, [facility] [address] [id number] [address] [place] [address] Jan, [facility] [address] [id number] [address] [place] [address] Jan, [facility] [address] [id number] [address] [place] [address] August, IMMUNIZATIONS No Known Immunizations SOCIAL HISTORY Never Assessed REASON FOR VISIT ADULT OUTREACH [facility] PLAN OF CARE Activity Details Follow Up prn/, 3 Months Reason:RESTOR ATIVE/ON SITE RECALL VITAL SIGNS MEDICATIONS Medication Instructions Dosage Frequency Start Date End Date Duration S tatus Lisinopril Active Desmopressin Acetate Not -Taking desmopressin 0.2 mg 3 Tablet by Oral route 1 time per day [facility] Jul, 30 days Not-Taking Quetiapine Fumarate 100 MG Orally every morning 1 tablet 30 days Not-Taking Albuterol Sulfate 2.5 mg /3 mL (0.083 %) 1 Each by Inhalation route 4 times per day for cough and wheeze PRN for wheezing or cough Dec, 4 Not-Taking Metamucil 0.52 GM Orally Once a day 3 capsule 24h Not-Taking Ventolin HFA 108 (90 Base) MCG/ACT Inhalation every 4 hrs 2 puffs a s needed 4h Not-Taking Seroquel 300 MG Orally Once a day 2 tablets every night 24h 30 days Not-Taking Simvastatin 20 MG Orally Once a day 1 tablet at bedtime 24h 31 Not-Taking Valsartan-Hydrochlorothiazide 80-12.5 MG Orally Once a day 1 tablet 24h Not-Taking Metoprolol Succinate Act guy Travatan Active Atorvastatin Calcium Act guy Depakote ER 250 MG Orally Once a day 1 tablet 24h Not-Taking Divalproex Sodium Not-Ta greg Folic Acid 1 MG take 0.5 tablet by Oral route 1 time per day 31 Not-Taking Tamsulosin HCl 0.4 MG TAKE TWO CAPSULES ORALLY DAILY 30 MINUTES AFTER THE SAME MEAL EACH DAY 31 Not-Taking GlyBURIDE 2.5 MG Orally 2 times a day 0.5 tablet 12h 31 Not-Taking Actos 15 MG take 1 tablet (15 mg) by oral route once daily 31 Not-Taking Omeprazole 20 MG Orally Once a day 24h Not-Taking HydrOXYzine Pamoate Acti ve Pioglitazone HCl Not-Mario Alberto ing TRUEtest Test - test blood sugar 12h 25 Nov, 2016 Not-Taking Depakote ER 500 MG Orally every night 2 tablet 3 0 days Not-Taking Metoprolol Tartrate 25 MG Orally Twice a day 1 tablet with food 12h 31 Not-Taking Montelukast Sodium 10 MG Orally Once a day 1 tablet 24h Not-Taking TRUEplus Lancets 33G - test blood sugar 12h 02 Jan, 2017 Not-Taking GNP Natural Fiber 0.52 GM Orally Once a day 3 capsules 24h 31 Not-Taking Metoprolol Tartrate Not- Taking Risperidone Active Diovan HCT 80-12.5 MG Orally Once a day 1 tablet 24h 31 Not-Taking Toviaz 8 MG Orally Once a day 1 tablet 24h N ot-Taking RESULTS No Results PROCEDURES Procedure Date Ordered Result Body Site PROPHYLAXIS - ADULT August 15, 2017 TOPICAL FLUORIDE VARNISH August 15, 2017 INSTRUCTIONS MEDICATIONS ADMINISTERED No Known Medications [...] Hospitalization History [facility], [facility] treatment few times for BH
--- OUTSIDE RECORDS SUMMARY | 2019-09-29 11:03 | XMS REPORT ---
Author Author Cameron ALANIZ Organization [employer] Address Unknown Phone Unavailable Care Team Providers Care Superintendent Meters Name Role Phone JEET ALANIZ CP Unavailable [...]
--- OUTSIDE RECORDS SUMMARY | 2019-09-29 11:03 | XMS REPORT ---
Author Author Cameron RICHARDS [facility] [employer] Address Unknown Phone Unavailable Care Team Providers Care Dynamics Ax Consultant Name Role Phone DEVORAH RICHARDS CP Unavailable Allergies, Adverse Reactions, Alerts Substance Reaction Event Type N.K.D.A. Info Not Available Non Drug Allergy Problems Problem Type Condition Code Onset Dates Condition Statu s Problem Reactive airway disease, unspecified ast hma severity, uncomplicated J45.909 Active Problem Obstructive sleep apnea G47.33 Acti ve Problem Essential hypertension I10 Activ e Assessment Encounter for dental examina tion and cleaning without abnormal findings Z01.20 Active Problem Depression F32.9 Active Problem Mild mental retardation F70 Acti ve Problem Diabetes E11.9 Active Problem Intermittent explosive disorder F63.81 Active Problem Type 2 diabetes mellitus with complication E11.8 Active Problem Adjustment disorder, unspecified type F43.20 Active Problem 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
--- OUTSIDE RECORDS SUMMARY | 2019-09-29 11:03 | XMS REPORT ---
Author Author Cameron ALANIZ [facility] [employer] Address Unknown Phone Unavailable Care Team Providers Care Criminology Professor Name Role Phone JEET ALANIZ CP Unavailable Allergies, Adverse Reactions, Alerts Substance Reaction Event Type N.K.D.A. Info Not Available Non Drug Allergy Problems Problem Type Condition Code Onset Dates Condition Statu s Problem Reactive airway disease, unspecified ast hma severity, uncomplicated J45.909 Active Problem Obstructive sleep apnea G47.33 Acti ve Problem Essential hypertension I10 Activ e Assessment Encounter for immunization Z23 A ctive Assessment Nocturnal hypoxemia G47.34 Active Problem Depression F32.9 Active Problem Mild mental retardation F70 Acti ve Problem Diabetes E11.9 Active Problem Intermittent explosive disorder F63.81 Active Problem Type 2 diabetes mellitus with complication E11.8 Active Problem Adjustment disorder, unspecified type F43.20 Active Problem 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 Active Medications Medication Code System Code Instructions Start Date End Date Status Dosage Metoprolol Tartrate [facility] 71390702043 25 MG Orally Twice a day 1 tablet with food Tamsulosin HCl [facility] [id number] 0.4 MG TAKE TWO CAPSULES ORALLY DAILY 30 MINUTES AFTER THE SAME MEAL EACH DAY Pulmicort Flexhaler [facility] [address]-52 90 MCG/ACT I nhalation Twice a day sample given Jan 18, 2015 2 puff Abilify [facility] [address]-19 5 MG Orally Once a day 1 tablet Albuterol Sulfate [facility] [address]-98 2.5 mg /3 mL (0.083 %) Dec 1 Each by Inhalation route 4 times per day for cough and wheeze PRN for wheezing or cough Test strips [facility] 0 N/A 2 times a day t est blood sugar Quetiapine Fumarate [facility] [address]-37 100 MG Orally in am Once a day 1 tablet Singulair [facility] [address]-01 10 mg Orally Once a day at hs and take Zyrtec in AM October 25, 2015 1 tablet in the even ing Ventolin HFA [facility] [address]-39 90 mcg/actuation Jan 11, 2014 inhale 2 puff by Inhalation route as needed 1 time per day Q hs and PRN Simvastatin [facility] 26535774969 20 MG TAKE ONE TABLET ORALLY EVERY NIGHT AT BEDTIME Depakote ER [facility] [place] [address]-69 250 MG Orally in the morning Jan 02, 2016 1 tablet Depakote ER [facility] [place] [address]-19 500 MG Orally in the morning Jan 02, 2016 1 tablet Folic Acid [facility] [place] 52919885716 1 MG take 0.5 tablet by Oral route 1 time per day GlyBURIDE [facility] [place] 06174470395 2.5 MG Orally 2 times a day 0.5 tablet Seroquel [facility] [place] [address]-74 300 MG Orally at bedtime Once a day 1 tablet Toviaz [facility] [place] [address]-61 8 MG Orally Once a day 1 tablet ZyrTEC NDC 0 10 mg by oral route Once a day 1 tablet GNP Natural Fiber [facility] [place] 47363610104 0.52 GM TAKE 3 CAPSULES ORALLY DAILY [5PM] Diovan HCT [facility] [place] 40702099444 80-12.5 MG Orally Once a day 1 tablet Cetirizine HCl [facility] [place] 06503112779 10 MG TAKE 1 TABLET ORALLY DAILY Omeprazole [facility] [place] 99789548151 20 MG Orally 2 times a day 1 capsule desmopressin ND 0 0.2 mg July 23, 2013 3 T ablet by Oral route 1 time per day [facility] Procedures Procedure Coding System Code Date Office Visit, Est Pt., Level 3 CPT-4 89160 S ept 2015 FLUARIX QUAD P-FREE 3 AND UP .50 2015 CPT-4 66562 Jan 12, 2016 MEASURE BLOOD OXYGEN LEVEL CPT-4 51050 Jan 12, 2016 SINGLE IMMUNIZATION ADMIN CPT-4 21304 Dec 222015 Vital Signs Date/Time: Jan 12, 2016 Cardiac Monitoring Heart Rate 88 bpm Weight 213.4 lbs Height 65 in BMI 35.51 Index Oximetry on room air:91 % Blood Pressure Diastolic 74 mmHg Blood Pressure Systolic 102 mmHg Results No Known Results Immunizations Vaccine Administration Date FLUARIX QUAD P-FREE 3 AND UP .50 2015Jan 12, 2016 Summary Purpose eClinicalWorks Submission
--- OUTSIDE RECORDS SUMMARY | 2019-09-29 11:03 | XMS REPORT ---
Author Author LETA Cameronsheridan YI Organization [facility] Address [address] [place] [address] Care Team Providers Care Banquet Captain Name Role Phone SAMANTHALIAM WHITTINGTONA Unavailable PROBLEMS Type Condition ICD9-CM Code [id number] Code Onset Dates Condition S tatus SNOMED Code Problem Diabetes E11.9 Active 35422572 Problem Intermittent explosive disorder in adult F63.81 Active 16206165 Problem Bipolar disorder, in partial remission, most rec ent episode manic F31.73 Active 03043315 Problem Neuropathy G62.9 Active 281298519 Problem Other diabetic neurological complication associated with type 2 diabetes mellitus E11.49 Active 643458672 Problem Mild intellectual disability F70 A ctive 75481182 Problem Bipolar disorder, unspecified F31.9 Active 33853788 Problem Gastroesophageal reflux disease without esophagitis K21.9 Active 305152893 Problem Reactive airway disease, mild intermittent, uncomplicated J45.20 Active 210410280 Problem Adjustment disorder, unspecified type F43.20 Active 09180340 Problem Open-angle glaucoma of both eyes, unspecified glaucoma stage, unspecified open-angle glaucoma type H40.10X0 Acti ve 93601430 Problem 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 Active 51598740 Problem Reactive airway disease, unspecified asthma justin rity, uncomplicated J45.909 Active 063401141706 Problem Essential hypertension I10 Active 32280225 Problem Type 2 diabetes mellitus with complication E11.8 Active 25713545 Problem Hypertensive retinopathy of both eyes H35.033 Active 3051013 Problem Intermittent explosive disorder F63.81 Active 74400458 Problem Obstructive sleep apnea G47.33 Active 34303509 Problem Depression F32.9 Active [id number] ALLERGIES No Information ENCOUNTERS Encounter Location Date Diagnosis [facility] [address] [facility] [id number] [address] [place] [address] Jan, [facility] [address] [facility] [id number] [address] [place] [address] Oct, [facility] [address] [place] [address] [id number] [place] [id number] Oct, [facility] [address] [facility] [id number] [address] [place] [address] Oct, Onychomycosis B35.1 and Othe r diabetic neurological complication associated with type 2 diabetes mellitus E11.49 [facility] [address] [facility] [id number] [address] [place] [address] Sep, Type 2 diabetes mellitus wit h complication E11.8 and Colon cancer screening Z12.11 [place] [address] [facility] [id number] [address] [place] [address] 18 Sep, 2017 Type 2 diabetes mellitus wit h complication E11.8 ; Colon cancer screening Z12.11 and Neuropathy G62.9 [facility] [address] [place] [id number] [address] [place] [address] August, Diabetes E11.9 [facility] [address] [facility] [id number] [address] [place] [phone] Jul, Dental examination Z01.20 [facility] [address] [facility] [id number] [address] [place] [address] 27 May, 2017 Mild intellectual disability F70 [place] [address] [place] [id number] [address] [place] [address] 07 May, 2017 Mild intellectual disability F70 ; High risk medication use Z79.899 ; Intermittent explosive disorder in adult F63.81 and Bipolar disorder, unspecified F31.9 [facility] [address] [facility] [id number] [address] [place] [address] May, [facility] [address] [facility] [id number] [address] [place] [address] May, [facility] [address] [place] [id number] [address] [place] [address] 22 Dayron, 2018 Type 2 diabetes mellitus wit h complication E11.8 ; Mild intellectual disability F70 ; Gastroesophageal reflux disease without esophagitis K21.9 ; Reactive airway disease, mild intermittent, uncomplicated J45.20 and Tobacco abuse Z72.0 [facility] [address] [id number] [address] [place] [id number] Apr, High risk medication use Z79 .899 ; Mild intellectual disability F70 ; Intermittent explosive disorder in adult F63.81 and Bipolar disorder, unspecified F31.9 [facility] [address] [id number] [address] [place] [id number] Mar, Encounter for dental exam an d cleaning w/o abnormal findings Z01.20 [facility] [address] [id number] [place] [address] [phone] Mar, Dental examination Z01.20 [facility] [address] [id number] [address] [place] [address] 12 Jan, 2017 [facility] [address] [id number] [address] [place] [address] Jan, [facility] [address] [facility] [id number] [address] [place] [address] Jan, Mild intellectual disability F70 ; Bipolar disorder, unspecified F31.9 and Intermittent explosive disorder in adult F63.81 [facility] [address] [id number] [address] [place] [address] 02 Jan, 2017 Diabetes E11.9 [facility] [address] [id number] [address] [place] [address] [phone] Dec, Encounter for dental examina tion and cleaning without abnormal findings Z01.20 [facility] [address] [id number] [address] [place] [address] 12 Dec, 2016 Bipolar disorder, unspecifie d F31.9 ; Intermittent explosive disorder in adult F63.81 and Mild intellectual disability F70 [facility] [address] [facility] [id number] [address] [place] [address] Nov, Diabetes E11.9 [place] [id number] [id number] [address] [place] [address] Nov, [facility] [address] [id number] [address] [place] [address] Nov, Diabetes E11.9 and Colon can cer screening Z12.11 [facility] [address] [place] [address] [address] [id number] [id number] Sep, Dental examination Z01.20 [facility] [address] [id number] [address] [place] [address] [phone] Sep, Encounter for dental examina tion and cleaning without abnormal findings Z01.20 [facility] [address] [id number] [address] [place] [address] Sep, Bipolar disorder, unspecifie d F31.9 [facility] [address] [id number] [address] [place] [address] Sep, Bipolar disorder, unspecifie d F31.9 [facility] [address] [id number] [address] [place] [address] Jul, [facility] [address] [id number] [address] [place] [address] Jul, Type 2 diabetes mellitus wit h complication E11.8 [facility] [address] [id number] [address] [place] [address] [id number] 15 Jun, 2016 Encounter for dental examina tion and cleaning without abnormal findings Z01.20 [facility] [address] [facility] [address] [id number] [id number] 15 Jun, 2016 Dental examination Z01.20 [facility] [address] [id number] [address] [place] [address] 18 Apr, 2016 Sports physical Z02.5 [facility] [address] [facility] [id number] [address] [place] [address] 14 Mar, 2016 Bipolar disorder, in partial remission, most recent episode manic F31.73 and Intermittent explosive disorder in adult F63.81 [facility] [address] [facility] [id number] [address] [place] [address] 08 Mar, 2016 [facility] [address] [facility] [id number] [address] [place] [address] Mar, Diabetes E11.9 [facility] [address] [facility] [id number] [address] [place] [address] [phone] Feb, Encounter for dental examina tion and cleaning without abnormal findings Z01.20 [facility] [address] [facility] [id number] [address] [place] [address] 22 Dec, 2015 Nocturnal hypoxemia G47.34 a nd Encounter for immunization Z23 [place] [address] [facility] [id number] [address] [place] [address] 15 Dec, 2015 [place] [address] [facility] [id number] [address] [place] [address] Dec, [place] [address] [facility] [id number] [address] [place] [address] Dec, Bipolar disorder, unspecifie d F31.9 [facility] [id number] [place] [address] [id number] Oct, Encounter for dental examina tion and cleaning without abnormal findings Z01.[id number] [place] [address] [id number] Oct, Dental examination Z01.20 [facility] [address] [facility] [id number] [address] [place] [address] Oct, Diabetes E11.9 [facility] [address] [facility] [id number] [address] [place] [address] 05 Oct, 2015 Diabetes E11.9 ; Reactive ai rway disease, mild intermittent, uncomplicated J45.20 and Tobacco abuse Z72.0 [place] [address] [facility] [id number] [address] [place] [address] Sep, Bipolar disorder, unspecifie d F31.9 and Depression F32.9 [place] [address] [address] Sep, [place] [address] [address] August, Tinea pedis of both feet B35 .3 and DM w/o complication type II, uncontrolled E11.65 [place] [address] [address] Jul, [place] [address] [address] Jul, [place] [address] [address] Jul, Obstructive sleep apnea G47. 33 [place] [address] [address] Jun, Diabetes E11.9 [place] [address] [address] Jun, [place] [address] [address] Jun, [place] [address] [address] Jun, Bipolar disorder, unspecifie d F31.9 and Mental retardation F79 [place] [address] [address] Apr, [place] [address] [address] Feb, Diabetes E11.9 ; Encounter f or immunization Z23 ; Cough R05 and Nicotine abuse Z72.0 [place] [address] [address] 09 Jan, 2015 Bipolar disorder, unspecifie d F31.9 and Diabetes mellitus without mention of complication, type II or unspecified type, uncontrolled 250.02 [place] [address] [address] Jan, [facility] [address] [facility] [id number] [address] [place] [address] Dec, Reactive airway disease 493. 90 and Enuresis 788.30 [facility] [address] [facility] [id number] [address] [place] [address] Dec, [facility] [address] [place] [address] Nov, [facility] [address] [place] [id number] [address] [place] [address] Nov, [facility] [address] [place] [id number] [address] [place] [address] Nov, Annual physical exam V70.0 ; Urinary incontinence 788.30 ; Diabetes 250.00 and Hypertension 401.9 [place] [address] [place] [id number] [address] [place] [address] Oct, Diabetes mellitus without me ntion of complication, type II or unspecified type, uncontrolled 250.02 [facility] [address] [place] [id number] [address] [place] [address] Oct, Diabetes mellitus without me ntion of complication, type II or unspecified type, uncontrolled 250.02 [facility] [address] [place] [id number] [address] [place] [address] Oct, Diabetes mellitus without me ntion of complication, type II or unspecified type, uncontrolled 250.02 [facility] [address] [place] [id number] [address] [place] [address] Oct, [facility] [address] [place] [id number] [address] [place] [address] Oct, [facility] [address] [place] [id number] [address] [place] [address] Oct, Bipolar disorder, unspecifie d 296.80 [facility] [address] [id number] [address] [place] [address] [id number] Sep, Dental examination V72.2 [facility] [address] [id number] [address] [place] [address] August, [facility] [address] [id number] [address] [place] [address] [id number] August, Dental examination V72.2 [facility] [address] [id number] [address] [place] [address] August, [facility] [address] [id number] [address] [place] [address] Jul, [facility] [address] [id number] [address] [place] [address] Jul, [facility] [address] [id number] [address] [place] [address] Jun, [facility] [address] [id number] [address] [place] [address] Jun, [facility] [address] [id number] [address] [place] [address] Jun, [facility] [address] [id number] [address] [place] [address] Jun, [facility] [address] [id number] [address] [place] [address] May, [facility] [address] [id number] [address] [place] [address] May, [facility] [address] [id number] [address] [place] [address] May, [facility] [address] [id number] [address] [place] [address] May, [facility] [address] [id number] [address] [place] [address] May, [facility] [address] [id number] [address] [place] [address] May, [facility] [address] [id number] [address] [place] [address], [place] [address] May, 2014 [facility] [address] [id number] [address] [place] [address], [place] [address] May, 2014 [facility] [address] [id number] [address] [place] [address], [place] [address] May, 2014 [facility] [address] [id number] [address] [place] [address], [place] [address] May, 2014 [facility] [address] [id number] [address] [place] [address], [place] [address] May, 2014 [facility] [address] [id number] [address] [place] [address], [place] [address] May, 2014 [facility] [address] [id number] [address] [place] [address], [place] [address] May, 2014 [facility] [address] [id number] [address] [place] [address], [place] [address] May, 2014 [facility] [address] [id number] [address] [place] [address], [place] [address] May, [facility] [address] [id number] [address] [place] [address], [place] [address] Apr, [facility] [address] [id number] [address] [place] [address], [place] [address] Apr, [facility] [address] [id number] [address] [place] [address], [place] [address] Apr, [facility] [address] [id number] [address] [place] [address], [place] [address] Apr, [facility] [address] [id number] [address] [place] [address], [place] [address] Apr, [facility] [address] [id number] [address] [place] [address], [place] [address] Apr, [facility] [address] [id number] [address] [place] [address], [place] [address] Apr, [facility] [address] [id number] [address] [place] [address], [place] [address] Apr, [facility] [address] [id number] [address] [place] [address], [place] [address] Apr, [facility] [address] [id number] [address] [place] [address], [place] [address] Apr, [facility] [address] [id number] [address] [place] [address], [place] [address] Apr, [facility] [address] [id number] [address] [place] [address], [place] [address] Apr, [facility] [address] [id number] [address] [place] [address], [place] [address] Mar, [facility] [address] [id number] [address] [place] [address], [place] [address] Mar, [facility] [address] [id number] [address] [place] [address], [place] [address] Mar, [facility] [address] [id number] [address] [place] [address], [place] [address] Mar, [facility] [address] [id number] [address] [place] [address], [place] [address] Mar, [facility] [address] [id number] [address] [place] [address], [place] [address] Mar, [facility] [address] [id number] [address] [place] [address], [place] [address] Feb, [facility] [address] [id number] [address] [place] [address], [place] [address] Feb, [facility] [address] [id number] [address] [place] [address], [place] [address] Feb, [facility] [address] [id number] [address] [place] [address], [place] [address] Feb, [facility] [address] [id number] [address] [place] [address], [place] [address] 14 Jan, 2014 [facility] [address] [id number] [address] [place] [address], [place] [address] 14 Jan, 2014 [facility] [address] [id number] [address] [place] [address], [place] [address] 14 Jan, 2014 [facility] [address] [id number] [address] [place] [address], [place] [address] 14 Jan, 2014 [facility] [address] [id number] [address] [place] [address], [place] [address] 22 Dec, 2013 [facility] [address] [id number] [address] [place] [address], [place] [address] 22 Dec, 2013 [facility] [address] [id number] [address] [place] [address], [place] [address] 15 Dec, 2013 [facility] [address] [id number] [address] [place] [address], [place] [address] 15 Dec, 2013 [facility] [address] [id number] [address] [place] [address], [place] [address] Nov, [facility] [address] [id number] [address] [place] [address], [place] [address] Nov, [facility] [address] [id number] [address] [place] [address], [place] [address] Nov, [facility] [address] [id number] [address] [place] [address], [place] [address] Nov, [facility] [address] [id number] [address] [place] [address], [place] [address] Nov, [facility] [address] [id number] [address] [place] [address], [place] [address] Nov, [facility] [address] [id number] [address] [place] [address], [place] [address] Nov, [facility] [address] [id number] [address] [place] [address], [place] [address] Oct, [facility] [address] [id number] [address] [address] Oct, [facility] [address] [id number] [address] [place] [address], [place] [address] Oct, [facility] [address] [id number] [address] [place] [address], [place] [address] Oct, [facility] [address] [id number] [address] [place] [address], [place] [address] Oct, [facility] [address] [id number] [address] [place] [address], [place] [address] Oct, [facility] [address] [id number] [address] [place] [address], [place] [address] Oct, [facility] [address] [id number] [address] [place] [address], [place] [address] Sep, [facility] [address] [id number] [address] [place] [address], [place] [address] Sep, [facility] [address] [id number] [address] [place] [address], [place] [address] Sep, [facility] [address] [id number] [address] [place] [address], [place] [address] Sep, [facility] [address] [id number] [address] [place] [address], [place] [address] Sep, [facility] [address] [id number] [address] [place] [address], [place] [address] Jul, [facility] [address] [id number] [address] [place] [address], [place] [address] Jul, [facility] [address] [id number] [address] [place] [address], [place] [address] Jul, [facility] [address] [id number] [address] [place] [address], [place] [address] Jul, [facility] [address] [id number] [facility] [id number] 15 Jul, 2013 [facility] [address] [id number] [facility] [address] Jul, [facility] [address] [id number] [address] [place] [address], [place] [address] Jul, [facility] [address] [id number] [address] [place] [address], [place] [address] Jul, [facility] [address] [id number] [address] [place] [address], [place] [address] Jul, [facility] [address] [id number] [address] [place] [address], [place] [address] Jul, [facility] [address] [id number] [address] [place] [address], [place] [address] Jul, [facility] [address] [id number] [address] [place] [address], [place] [id number] Jul, [facility] [address] [id number] [address] [place] [address], [place] [address] Jun, [facility] [address] [id number] [address] [place] [address], [place] [address] Jun, [facility] [address] [id number] [address] [place] [address], [place] [address] Jun, [facility] [address] [id number] [address] [place] [address], [place] [address] Jun, [facility] [address] [id number] [address] [place] [address], [place] [address] Jun, [facility] [address] [id number] [address] [place] [address], [place] [address] Jun, [facility] [address] [id number] [address] [place] [address], [place] [address] Jun, [facility] [address] [id number] [address] [place] [address], [place] [address] Jun, [facility] [address] [id number] [facility] [address] May, [facility] [facility] [address] [id number] [address] [place] [address], [place] [address] May, [facility] [address] [id number] [address] [place] [address], [place] [address] May, [facility] [address] [id number] [address] [place] [address], [place] [address] May, [facility] [address] [id number] [address] [place] [address], [place] [address] May, [facility] [address] [id number] [address] [place] [address], [place] [address] May, [facility] [address] [id number] [address] [place] [address], [place] [address] May, [facility] [address] [id number] [address] [place] [address], [place] [address] May, [facility] [address] [id number] [address] [place] [address], [place] [address] Apr, [facility] [address] [id number] [address] [place] [address], [place] [address] Apr, [facility] [address] [id number] [address] [place] [address], [place] [address] Apr, [facility] [address] [id number] [address] [place] [address], [place] [address] Apr, [facility] [address] [id number] [address] [place] [address], [place] [address] Mar, [facility] [address] [id number] [address] [place] [address], [place] [address] Mar, [facility] [address] [id number] [address] [place] [address], [place] [address] Mar, [facility] [address] [id number] [address] [place] [address], [place] [address] Feb, [facility] [address] [id number] [address] [place] [address], [place] [address] Feb, [facility] [address] [id number] [address] [place] [address], [place] [address] Feb, [facility] [address] [id number] [address] [place] [address], [place] [address] Feb, [facility] [address] [id number] [address] [place] [address], [place] [address] Feb, [facility] [address] [id number] [address] [place] [address], [place] [address] Feb, [facility] [address] [id number] [address] [place] [address], [place] [address] Jan, [facility] [address] [id number] [address] [place] [address], [place] [address] Jan, [facility] [address] [id number] [address] [place] [address], [place] [address] Jan, [facility] [address] [id number] [address] [place] [address], [place] [address] Jan, [facility] [address] [id number] [address] [place] [address], [place] [address] Jan, [facility] [address] [id number] [address] [place] [address], [place] [address] Jan, [facility] [address] [id number] [address] [place] [address], [place] [address] Jan, [facility] [address] [id number] [address] [place] [address], [place] [address] 25 Dec, 2012 [facility] [address] [id number] [address] [place] [address], [place] [address] 16 Dec, 2012 [facility] [address] [id number] [address] [place] [address], [place] [address] Dec, [facility] [address] [id number] [address] [place] [address], [place] [address] Dec, [facility] [address] [id number] [address] [place] [address], [place] [address] Nov, [facility] [address] [id number] [address] [place] [address], [place] [address] Nov, [facility] [address] [id number] [address] [place] [address], [place] [address] Nov, [facility] [address] [id number] [address] [place] [address], [place] [address] Nov, [facility] [address] [id number] [address] [place] [address], [place] [address] Nov, [facility] [address] [id number] [address] [place] [address], [place] [address] Nov, [facility] [address] [id number] [address] [place] [address], [place] [address] Nov, [facility] [address] [id number] [address] [place] [address], [place] [address] Oct, [facility] [address] [id number] [address] [place] [address], [place] [address] Oct, [facility] [address] [id number] [address] [place] [address], [place] [address] Oct, [facility] [address] [id number] [address] [place] [address], [place] [address] Oct, [facility] [address] [id number] [address] [place] [address], [place] [address] Oct, [facility] [address] [id number] [address] [place] [address], [place] [address] Oct, [facility] [address] [id number] [address] [place] [address], [place] [address] Oct, [facility] [address] [id number] [address] [place] [address], [place] [address] Oct, [facility] [address] [id number] [address] [place] [address], [place] [address] Sep, [facility] [id number] [place] [id number] August, [facility] [address] [id number] [facility] [address] August, [facility] [address] [id number] [address] [place] [address], [place] [address] Jul, [facility] [address] [id number] [address] [place] [address], [place] [address] Jul, [facility] [address] [id number] [address] [place] [address], [place] [address] Jul, [facility] [address] [id number] [address] [place] [address], [place] [address] Jul, [facility] [address] [id number] [address] [place] [address], [place] [address] Jul, [facility] [address] [id number] [address] [place] [address], [place] [address] Jul, [facility] [address] [id number] [address] [place] [address], [place] [address] 16 Jul, 2012 [facility] [address] [id number] [address] [place] [address], [place] [address] Jun, [facility] [address] [id number] [address] [place] [address], [place] [address] 18 Jun, 2012 [facility] [address] [id number] [address] [place] [address], [place] [address] Jun, [facility] [address] [id number] [address] [place] [address], [place] [address] Jun, [facility] [address] [id number] [address] [place] [address], [place] [address] Jun, [facility] [address] [id number] [address] [place] [address], [place] [address] May, [facility] [address] [id number] [address] [place] [address], [place] [address] 18 May, 2012 [facility] [address] [id number] [address] [place] [address], [place] [address] May, [facility] [address] [id number] [address] [place] [address], [place] [address] 15 Apr, 2012 [facility] [address] [id number] [address] [place] [address], [place] [address] 14 Apr, 2012 [facility] [address] [id number] [address] [place] [address], [place] [address] Apr, [facility] [address] [id number] [address] [place] [address], [place] [address] Mar, [facility] [address] [id number] [address] [place] [address], [place] [address] Mar, [facility] [address] [id number] [address] [place] [address], [place] [address] Mar, [facility] [address] [id number] [address] [place] [address], [place] [address] Mar, [facility] [address] [id number] [address] [place] [address], [place] [address] Mar, [facility] [address] [id number] [address] [place] [address] Mar, [facility] [address] [id number] [address] [place] [address], [place] [address] Feb, [facility] [address] [id number] [address] [place] [address], [place] [address] Feb, [facility] [address] [id number] [address] [place] [address], [place] [address] 18 Jan, 2012 [facility] [address] [id number] [address] [place] [address], [place] [address] Jan, [facility] [address] [id number] [address] [place] [address], [place] [address] Dec, [facility] [address] [id number] [address] [place] [address], [place] [address] Nov, [facility] [address] [id number] [address] [place] [address], [place] [address] Nov, [facility] [address] [id number] [address] [place] [address], [place] [address] Nov, [facility] [address] [id number] [address] [place] [address], [place] [address] Nov, [facility] [address] [id number] [address] [place] [address], [place] [address] Oct, [facility] [address] [id number] [address] [place] [address], [place] [address] Oct, [facility] [address] [id number] [address] [place] [address], [place] [address] Oct, [facility] [address] [id number] [address] [place] [address], [place] [address] Sep, [facility] [address] [id number] [address] [place] [address], [place] [address] Sep, [facility] [address] [id number] [address] [place] [address], [place] [address] Sep, [facility] [address] [id number] [address] [place] [address], [place] [address] August, [facility] [address] [id number] [address] [place] [address], [place] [address] August, [facility] [address] [id number] [address] [place] [address], [place] [address] Jul, [facility] [address] [id number] [address] [place] [address], [place] [address] Jul, [facility] [address] [id number] [address] [place] [address], [place] [address] 17 Jul, 2011 [facility] [address] [id number] [address] [place] [address], [place] [address] Jul, [facility] [address] [id number] [address] [place] [address], [place] [address] Jun, [facility] [address] [id number] [address] [place] [address], [place] [address] May, [facility] [address] [id number] [address] [place] [address], [place] [address] Apr, [facility] [address] [id number] [address] [place] [address], [place] [address] Apr, [facility] [address] [id number] [address] [place] [address], [place] [address] Apr, [facility] [address] [id number] [address] [place] [address], [place] [address] Apr, [facility] [address] [id number] [address] [place] [address], [place] [address] Apr, [facility] [address] [id number] [address] [place] [address], [place] [address] Apr, [facility] [address] [id number] [address] [place] [address], [place] [address] Mar, [facility] [address] [id number] [address] [place] [address], [place] [address] Mar, [facility] [address] [id number] [address] [place] [address], [place] [address] Feb, [facility] [address] [id number] [address] [place] [address], [place] [address] 18 Feb, 2011 [facility] [address] [id number] [address] [place] [address], [place] [address] 17 Feb, 2011 [facility] [address] [id number] [address] [place] [address] [address] Feb, [facility] [address] [id number] [address] [place] [address], [place] [address] 20 Jan, 2011 [facility] [address] [id number] [address] [place] [address], [place] [address] 18 Jan, 2011 [facility] [address] [id number] [address] [place] [address], [place] [address] 18 Jan, 2011 [facility] [address] [id number] [address] [place] [address], [place] [address] Jan, [facility] [address] [id number] [address] [place] [address], [place] [address] Nov, [facility] [address] [id number] [address] [place] [address], [place] [address] Mar, [facility] [address] [id number] [address] [place] [address], [place] [address] Mar, [facility] [address] [id number] [address] [place] [address] Feb, [facility] [address] [id number] [address] [place] [address], [place] [address] Feb, [facility] [address] [id number] [address] [place] [address] Jan, [facility] [address] [id number] [address] [place] [address] Jan, [facility] [address] [id number] [address] [place] [address] Sep, [facility] [address] [id number] [address] [place] [address], [place] [address] May, [facility] [address] [id number] [address] [place] [address] Apr, [facility] [address] [id number] [address] [place] [address] Mar, [facility] [address] [id number] [address] [place] [address] 15 Feb, 2009 [facility] [address] [id number] [address] [place] [address] Feb, [facility] [address] [id number] [address] [place] [address] 10 Feb, 2009 [facility] [address] [id number] [address] [place] [address] Jan, [facility] [address] [id number] [address] [place] [address] Jan, [facility] [address] [id number] [address] [place] [address] Jan, [facility] [address] [id number] [address] [place] [address] Jan, [facility] [address] [id number] [address] [place] [address] August, IMMUNIZATIONS No Known Immunizations SOCIAL HISTORY Never Assessed REASON FOR VISIT med refill PLAN OF CARE VITAL SIGNS MEDICATIONS Medication Instructions Dosage Frequency Start Date End Date Duration S tatus Quetiapine Fumarate 100 MG Orally every morning 1 tablet 30 days Active Depakote ER 500 MG Orally every night 2 tablet 3 0 days Active Seroquel 300 MG Orally Once a day 2 tablets every night 24h 30 days Active RESULTS No Results PROCEDURES No [...] Hospitalization History [facility], [place] tient treatment few times for BH
--- OUTSIDE RECORDS SUMMARY | 2019-09-29 11:03 | XMS REPORT ---
Author Author Cameron ALANIZ [facility] eClinical[employer] Address Unknown Phone Unavailable Care Team Providers Care Rn Visiting Name Role Phone JEET ALANIZ CP Unavailable [...] g and expression of language F80.2 Active Assessment Tobacco abuse Z72.0 Active Assessment Reactive airway disease, mild intermittent, uncomplica yessica J45.20 Active Assessment Diabetes E11.9 Active Medications Medication Code System Code Instructions Start Date End Date Status Dosage Depakote ER [facility] [address]-19 500 MG Orally 2 tablets at bedti me October 12, 2015 as directed GlyBURIDE [facility] 49165079018 2.5 MG Orally 2 times a day 0.5 tablet Lancets Ultra Thin 30G [facility] [id number] [facility] USE TO TEST BLOOD GLUCOSE ONCE DAILY DIRECTED Pulmicort Flexhaler [facility] [address]-26 90 MCG/ACT I nhalation Twice a day sample given Jan 18, 2015 2 puff Singulair [facility] [address]-70 10 mg Orally Once a day at hs and take Zyrtec in AM October 25, 2015 1 tablet in the even ing GNP Natural Fiber [facility] 69636212858 0.52 GM TAKE 3 CAPSULES ORALLY DAILY [5PM] Test strips NDC 0 not defined desmopressin ND 0 0.2 mg July 23, 2013 3 T ablet by Oral route 1 time per day qHS Diovan HCT [facility] 09854436862 80-12.5 MG Orally Once a day 1 tablet Simvastatin [facility] 79467133595 20 MG TAKE ONE TABLET ORALLY EVERY NIGHT AT BEDTIME ZyrTEC ND 0 10 mg by oral route Once a day 1 tablet Albuterol Sulfate [facility] [address]-98 2.5 mg /3 mL (0.083 %) Dec 1 Each by Inhalation route 4 times per day for cough and wheeze PRN for wheezing or cough Tamsulosin HCl [facility] [address]-06 0.4 MG Orally Once a day 2 capsules Quetiapine Fumarate [facility] [address]-01 100 MG Orally in am Once a day 1 tablet Omeprazole [facility] 39774003650 20 MG Orally 2 times a day 1 capsule Metoprolol Tartrate [facility] [address]-53 25 MG Orally Once a day September 1 tablet with food Abilify [facility] [address]-73 5 MG Orally Once a day 1 tablet Seroquel [facility] [address]-19 300 MG Orally at bedtime Once a day 1 tablet Folic Acid [facility] 45998393236 1 MG take 0.5 tablet by Oral route 1 time per day Pioglitazone HCl [facility] [address]-10 15 MG Orally Once a day 1 tablet Toviaz [facility] [address]-33 8 MG Orally Once a day 1 tablet Ventolin HFA [facility] [address]-07 90 mcg/actuation Jan 11, 2014 inhale 2 puff by Inhalation route as needed 1 time per day Q hs and PRN Depakote ER [facility] [address]-40 500 MG 2 tab lets once a day qAM Orally 30 days once a day Orally 30 days Procedures Procedure Coding System Code Date MICROALBUMIN, SEMIQUANT CPT-4 71055 October 25, 2015 LAB NOT BILLED BY [facility] CPT-4 NOBLL October GLYCATED HEMOGLOBIN TEST CPT-4 29521 October Office Visit, Est Pt., Level 3 CPT-4 50555 J nicolette 2015 Vital Signs Date/Time: October 25, 2015 Cardiac Monitoring Heart Rate 87 bpm Weight 213.1 lbs Height 65 in BMI 35.46 Index Blood Pressure Diastolic 76 mmHg Blood Pressure Systolic 100 mmHg Results No Known Results Summary Purpose eClinicalWorks Submission
--- OUTSIDE RECORDS SUMMARY | 2019-09-29 11:03 | XMS REPORT ---
Author Author LETA Cameronsheridan YI Organization [facility] Address [address] [place] [address] Care Team Providers Care Dtp Operator Name Role Phone SAMANTHALIAM WHITTINGTONA Unavailable PROBLEMS Type Condition ICD9-CM Code MAO05-CN Code Onset Dates Condition S tatus SNOMED Code Problem Essential hypertension I10 Active 56484298 Problem Diabetes E11.9 Active 70701094 Problem Depression F32.9 Active 90460696 Problem Gastroesophageal reflux disease without esophagitis K21.9 Active 329709069 Problem Reactive airway disease, mild intermittent, uncomplicated J45.20 Active 519241806 Problem Intermittent explosive disorder in adult F63.81 Active 26828383 Problem Bipolar disorder, in partial remission, most rec ent episode manic F31.73 Active 30743915 Problem Mild intellectual disability F70 A ctive 46394443 Problem Bipolar disorder, unspecified F31.9 Active 55218950 Problem 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 Active 40941931 Problem Reactive airway disease, unspecified asthma justin rity, uncomplicated J45.909 Active 945087144381 Problem Hypertensive retinopathy of both eyes H35.033 Active 8252359 Problem Type 2 diabetes mellitus with complication E11.8 Active 06649556 Problem Adjustment disorder, unspecified type F43.20 Active 80255146 Problem Intermittent explosive disorder F63.81 Active 08942180 Problem Open-angle glaucoma of both eyes, unspecified glaucoma stage, unspecified open-angle glaucoma type H40.10X0 Acti ve 43956732 Problem Obstructive sleep apnea G47.33 Active 10899107 ALLERGIES No Information ENCOUNTERS Encounter Location Date Diagnosis [facility] [address] [facility] [id number] [address] [place] [address] Oct, [facility] [address] [facility] [id number] [address] [place] [address] Sep, [facility] [address] [facility] [id number] [address] [place] [address] Sep, [facility] [address] [id number] [address] [place] [address] [id number] Jul, Dental examination Z01.20 [facility] [address] [facility] [id number] [address] [place] [address] May, Mild intellectual disability F70 [facility] [address] [facility] [id number] [address] [place] [address] May, Mild intellectual disability F70 ; High risk medication use Z79.899 ; Intermittent explosive disorder in adult F63.81 and Bipolar disorder, unspecified F31.9 [facility] [address] [facility] [id number] [address] [place] [address] May, [facility] [address] [facility] [id number] [address] [place] [address] May, [facility] [address] [facility] [id number] [address] [place] [address] Apr, Type 2 diabetes mellitus wit h complication E11.8 ; Mild intellectual disability F70 ; Gastroesophageal reflux disease without esophagitis K21.9 ; Reactive airway disease, mild intermittent, uncomplicated J45.20 and Tobacco abuse Z72.0 [facility] [address] [facility] [id number] [address] [place] [address] Apr, High risk medication use Z79 .899 ; Mild intellectual disability F70 ; Intermittent explosive disorder in adult F63.81 and Bipolar disorder, unspecified F31.9 [facility] [address] [id number] [address] [place] [address] [id number] Mar, Encounter for dental exam an d cleaning w/o abnormal findings Z01.20 [facility] [address] [id number] [address] [place] [address] [phone] Mar, Dental examination Z01.20 [facility] [address] [facility] [id number] [address] [place] [address] Jan, [facility] [address] [id number] [address] [place] [address] Jan, [facility] [address] [id number] [address] [place] [address] 10 Jan, 2017 Mild intellectual disability F70 ; Bipolar disorder, unspecified F31.9 and Intermittent explosive disorder in adult F63.81 [facility] [address] [id number] [address] [place] [address] 02 Jan, 2017 Diabetes E11.9 [facility] [address] [id number] [address] [place] [address] [id number] 13 Dec, 2016 Encounter for dental examina tion and cleaning without abnormal findings Z01.20 [facility] [address] [id number] [address] [place] [address] Dec, Bipolar disorder, unspecifie d F31.9 ; Intermittent explosive disorder in adult F63.81 and Mild intellectual disability F70 [facility] [address] [id number] [address] [place] [address] Nov, Diabetes E11.9 [facility] [address] [id number] [address] [place] [address] Nov, [facility] [address] [id number] [address] [place] [address] Nov, Diabetes E11.9 and Colon can cer screening Z12.[id number] [place] [address] [id number] Sep, Dental examination Z01.20 [facility] [address] [id number] [address] [place] [address] [id number] Sep, Encounter for dental examina tion and cleaning without abnormal findings Z01.20 [facility] [address] [id number] [address] [place] [address] 13 Sep, 2016 Bipolar disorder, unspecifie d F31.9 [facility] [address] [id number] [address] [place] [address] Sep, Bipolar disorder, unspecifie d F31.9 [facility] [address] [facility] [id number] [address] [place] [address] Jul, [facility] [address] [facility] [id number] [address] [place] [address] 13 Jul, 2016 Type 2 diabetes mellitus wit h complication E11.8 [facility] [address] [facility] [id number] [address] [place] [address] [id number] 15 Jun, 2016 Encounter for dental examina tion and cleaning without abnormal findings Z01.[address] [id number] [place] [address] [id number] Jun, Dental examination Z01.20 [facility] [address] [facility] [id number] [address] [place] [address] Apr, Sports physical Z02.5 [facility] [address] [facility] [id number] [address] [place] [address] 14 Mar, 2016 Bipolar disorder, in partial remission, most recent episode manic F31.73 and Intermittent explosive disorder in adult F63.81 [facility] [address] [facility] [id number] [address] [place] [address] 08 Mar, 2016 [facility] [address] [facility] [id number] [address] [place] [address] 06 Mar, 2016 Diabetes E11.9 [facility] [address] [facility] [id number] [address] [place] [address] [id number] Feb, Encounter for dental examina tion and cleaning without abnormal findings Z01.20 [facility] [address] [facility] [id number] [address] [place] [address] 22 Dec, 2015 Nocturnal hypoxemia G47.34 a nd Encounter for immunization Z23 [facility] [address] [facility] [id number] [address] [place] [address] 15 Dec, 2015 [facility] [address] [facility] [id number] [address] [place] [address] 12 Dec, 2015 [facility] [address] [facility] [id number] [address] [place] [address] Dec, Bipolar disorder, unspecifie d F31.9 [facility] [address] [id number] [address] [place] [address] [id number] 13 Oct, 2015 Encounter for dental examina tion and cleaning without abnormal findings Z01.[address] [id number] [id number] 13 Oct, 2015 Dental examination Z01.20 [facility] [address] [facility] [id number] [address] [place] [address] 07 Oct, 2015 Diabetes E11.9 [place] [address] [address] 05 Oct, 2015 Diabetes E11.9 ; Reactive ai rway disease, mild intermittent, uncomplicated J45.20 and Tobacco abuse Z72.0 [facility] [address] [place] [id number] [address] [place] [address] Sep, Bipolar disorder, unspecifie d F31.9 and Depression F32.9 [facility] [address] [place] [id number] [address] [place] [address] Sep, [facility] [address] [address] August, Tinea pedis of both feet B35 .3 and DM w/o complication type II, uncontrolled E11.65 [facility] [id number] [place] [address] Jul, [facility] [address] [place] [id number] [address] [place] [address] Jul, [place] [address] [address] Jul, Obstructive sleep apnea G47. 33 [facility] [address] [place] [id number] [address] [place] [address] Jun, Diabetes E11.9 [facility] [address] [address] Jun, [facility] [address] [address] Jun, [facility] [address] [address] Jun, Bipolar disorder, unspecifie d F31.9 and Mental retardation F79 [place] [address] [address] Apr, [place] [address] [address] Feb, Diabetes E11.9 ; Encounter f or immunization Z23 ; Cough R05 and Nicotine abuse Z72.0 [place] [address] [address] Jan, Bipolar disorder, unspecifie d F31.9 and Diabetes mellitus without mention of complication, type II or unspecified type, uncontrolled 250.02 [place] [address] [address] Jan, [place] [address] [address] Dec, Reactive airway disease 493. 90 and Enuresis 788.30 [place] [address] [address] Dec, [place] [address] [address] Nov, [place] [address] [address] Nov, [place] [address] [address] Nov, Annual physical exam V70.0 ; Urinary incontinence 788.30 ; Diabetes 250.00 and Hypertension 401.9 [place] [address] [address] Oct, Diabetes mellitus without me ntion of complication, type II or unspecified type, uncontrolled 250.02 [facility] [address] [id number] [address] [place] [address] Oct, Diabetes mellitus without me ntion of complication, type II or unspecified type, uncontrolled 250.02 [facility] [address] [id number] [address] [place] [address] Oct, Diabetes mellitus without me ntion of complication, type II or unspecified type, uncontrolled 250.02 [facility] [address] [id number] [address] [place] [address] Oct, [facility] [address] [id number] [address] [place] [address] Oct, [facility] [address] [id number] [address] [place] [address] Oct, Bipolar disorder, unspecifie d 296.80 [facility] [address] [id number] [address] [place] [address] [id number] Sep, Dental examination V72.2 [facility] [address] [id number] [address] [place] [address] August, [facility] [address] [id number] [address] [place] [address] [id number] August, Dental examination V72.2 [facility] [address] [id number] [address] [place] [address] August, [facility] [address] [id number] [address] [place] [address] Jul, [facility] [address] [id number] [address] [place] [address] Jul, [facility] [address] [id number] [address] [place] [address] Jun, [facility] [address] [id number] [address] [place] [address] 17 Jun, 2014 [facility] [address] [id number] [address] [place] [address], [place] [address] 17 Jun, 2014 [facility] [address] [id number] [address] [place] [address], [place] [address] 17 Jun, 2014 [facility] [address] [id number] [address] [place] [address], [place] [address] 23 May, 2014 [facility] [address] [id number] [address] [place] [address], [place] [address] 23 May, 2014 [facility] [address] [id number] [address] [place] [address], [place] [address] 16 May, 2014 [facility] [address] [id number] [address] [place] [address], [place] [address] 16 May, 2014 [facility] [address] [id number] [address] [place] [address], [place] [address] 16 May, 2014 [facility] [address] [id number] [address] [place] [address], [place] [address] 16 May, 2014 [facility] [address] [id number] [address] [place] [address], [place] [address] 16 May, 2014 [facility] [address] [id number] [address] [place] [address], [place] [address] 16 May, 2014 [facility] [address] [id number] [address] [place] [address], [place] [address] 16 May, 2014 [facility] [address] [id number] [address] [place] [address], [place] [address] 16 May, 2014 [facility] [address] [id number] [address] [place] [address], [place] [address] 16 May, 2014 [facility] [address] [id number] [address] [place] [address], [place] [address] 16 May, 2014 [facility] [address] [id number] [address] [place] [address], [place] [address] May, [facility] [address] [id number] [address] [place] [address], [place] [address] May, [facility] [address] [id number] [address] [place] [address], [place] [address] May, [facility] [address] [id number] [address] [place] [address], [place] [address] Apr, [facility] [address] [id number] [address] [place] [address], [place] [address] Apr, [facility] [address] [id number] [address] [place] [address], [place] [address] Apr, [facility] [address] [id number] [address] [place] [address], [place] [address] Apr, [facility] [address] [id number] [address] [place] [address], [place] [address] Apr, [facility] [address] [id number] [address] [place] [address], [place] [address] Apr, [facility] [address] [id number] [address] [place] [address], [place] [address] Apr, [facility] [address] [id number] [address] [place] [address], [place] [address] Apr, [facility] [address] [id number] [address] [place] [address], [place] [address] Apr, [facility] [address] [id number] [address] [place] [address], [place] [address] Apr, [facility] [address] [id number] [address] [place] [address], [place] [address] Apr, [facility] [address] [id number] [address] [place] [address], [place] [address] Apr, [facility] [address] [id number] [address] [place] [address], [place] [address] Mar, [facility] [address] [id number] [address] [place] [address], [place] [address] 10 Mar, 2014 [facility] [address] [id number] [address] [place] [address], [place] [address] 10 Mar, 2014 [facility] [address] [id number] [address] [place] [address], [place] [address] 10 Mar, 2014 [facility] [address] [id number] [address] [place] [address], [place] [address] Mar, [facility] [address] [id number] [address] [place] [address], [place] [address] 10 Mar, 2014 [facility] [address] [id number] [address] [place] [address], [place] [address] 13 Feb, 2014 [facility] [address] [id number] [address] [place] [address], [place] [address] Feb, [facility] [address] [id number] [address] [place] [address], [place] [address] Feb, [facility] [address] [id number] [address] [place] [address], [place] [address] 13 Feb, 2014 [facility] [address] [id number] [address] [place] [address], [place] [address] 14 Jan, 2014 [facility] [address] [id number] [address] [place] [address], [place] [address] 14 Jan, 2014 [facility] [address] [id number] [address] [place] [address], [place] [address] 14 Jan, 2014 [facility] [address] [id number] [address] [place] [address], [place] [address] 14 Jan, 2014 [facility] [address] [id number] [address] [place] [address], [place] [address] 22 Dec, 2013 [facility] [address] [id number] [address] [place] [address], [place] [address] 22 Dec, 2013 [facility] [address] [id number] [address] [place] [address], [place] [address] 15 Dec, 2013 [facility] [address] [id number] [facility] [place] [address] Dec, [facility] [address] [id number] [facility] [place] [address] Nov, [facility] [address] [id number] [facility] [place] [address] Nov, [facility] [address] [id number] [address] [place] [address], [place] [address] Nov, [facility] [address] [id number] [address] [place] [address], [place] [address] Nov, [facility] [address] [id number] [address] [place] [address], [place] [address] Nov, [facility] [address] [id number] [address] [place] [address], [place] [address] Nov, [facility] [address] [id number] [address] [place] [address], [place] [address] Nov, [facility] [address] [id number] [address] [place] [address], [place] [address] Oct, [facility] [address] [id number] [address] [place] [address], [place] [address] Oct, [facility] [address] [id number] [address] [place] [address], [place] [address] Oct, [facility] [address] [id number] [address] [place] [address], [place] [address] Oct, [facility] [address] [id number] [address] [place] [address], [place] [address] Oct, [facility] [address] [id number] [address] [place] [address], [place] [address] Oct, [facility] [address] [id number] [address] [place] [address], [place] [address] Oct, [facility] [address] [id number] [address] [place] [address], [place] [address] Sep, [facility] [address] [id number] [facility] [place] [address] 17 Sep, 2013 [facility] [address] [id number] [address] [place] [address], [place] [address] Sep, [facility] [address] [id number] [address] [place] [address], [place] [address] Sep, [facility] [address] [id number] [address] [place] [address], [place] [address] Sep, [facility] [address] [id number] [address] [place] [address], [place] [address] Jul, [facility] [address] [id number] [address] [place] [address], [place] [address] Jul, [facility] [address] [id number] [address] [place] [address], [place] [address] Jul, [facility] [address] [id number] [address] [place] [address], [place] [address] Jul, [facility] [address] [id number] [address] [place] [address], [place] [address] Jul, [facility] [address] [id number] [address] [place] [address], [place] [address] Jul, [facility] [address] [id number] [address] [place] [address], [place] [address] Jul, [facility] [address] [id number] [address] [place] [address], [place] [address] Jul, [facility] [address] [id number] [address] [place] [address], [place] [address] Jul, [facility] [address] [id number] [address] [place] [address], [place] [address] Jul, [facility] [address] [id number] [address] [place] [address], [place] [address] Jul, [facility] [address] [id number] [address] [place] [address], [place] [address] Jul, [facility] [address] [id number] [address] [place] [address], [place] [address] Jun, [facility] [address] [id number] [address] [place] [address], [place] [address] Jun, [facility] [address] [id number] [address] [place] [address], [place] [address] Jun, [facility] [address] [id number] [address] [place] [address], [place] [address] Jun, [facility] [address] [id number] [address] [place] [address], [place] [address] Jun, [facility] [address] [id number] [address] [place] [address], [place] [address] Jun, [facility] [address] [id number] [address] [place] [address], [place] [address] Jun, [facility] [address] [id number] [address] [place] [address], [place] [address] Jun, [facility] [address] [id number] [address] [place] [address], [place] [address] May, [facility] [address] [id number] [address] [place] [address], [place] [address] May, [facility] [address] [id number] [address] [place] [address], [place] [address] May, [facility] [address] [id number] [address] [place] [address], [place] [address] May, [facility] [address] [id number] [address] [place] [address], [place] [address] May, [facility] [address] [id number] [address] [place] [address], [place] [address] May, [facility] [address] [id number] [address] [place] [address], [place] [address] May, [facility] [address] [id number] [address] [place] [address], [place] [address] May, [facility] [address] [id number] [address] [place] [address], [place] [address] Apr, [facility] [address] [id number] [address] [place] [address], [place] [address] Apr, [facility] [address] [id number] [address] [place] [address], [place] [address] Apr, [facility] [address] [id number] [address] [place] [address], [place] [address] Apr, [facility] [address] [id number] [address] [place] [address], [place] [address] Mar, [facility] [address] [id number] [address] [place] [address], [place] [address] Mar, [facility] [address] [id number] [address] [place] [address], [place] [address] Mar, [facility] [address] [id number] [address] [place] [address], [place] [address] Feb, [facility] [address] [id number] [address] [place] [address], [place] [address] Feb, [facility] [address] [id number] [address] [place] [address], [place] [address] Feb, [facility] [address] [id number] [address] [place] [address], [place] [address] Feb, [facility] [address] [id number] [address] [place] [address], [place] [address] Feb, [facility] [address] [id number] [address] [place] [address], [place] [address] Feb, [facility] [address] [id number] [address] [place] [address], [place] [address] Jan, [facility] [address] [id number] [address] [place] [address], [place] [address] Jan, [facility] [address] [id number] [address] [place] [address], [place] [address] Jan, [facility] [address] [id number] [address] [place] [address], [place] [address] Jan, [facility] [address] [id number] [address] [place] [address], [place] [address] Jan, [facility] [address] [id number] [address] [place] [address], [place] [address] Jan, [facility] [address] [id number] [address] [place] [address], [place] [address] Jan, [facility] [address] [id number] [address] [place] [address], [place] [address] Dec, [facility] [address] [id number] [address] [place] [address], [place] [address] 16 Dec, 2012 [facility] [address] [id number] [address] [place] [address], [place] [address] Dec, [facility] [address] [id number] [address] [place] [address], [place] [address] 05 Dec, 2012 [facility] [address] [id number] [address] [place] [address], [place] [address] Nov, [facility] [address] [id number] [address] [place] [address], [place] [address] Nov, [facility] [address] [id number] [address] [place] [address], [place] [address] Nov, [facility] [address] [id number] [address] [place] [address], [place] [address] Nov, [facility] [address] [id number] [address] [place] [address], [place] [address] Nov, [facility] [address] [id number] [address] [place] [address], [place] [address] Nov, [facility] [address] [id number] [address] [place] [address], [place] [address] Nov, [facility] [address] [id number] [address] [place] [address], [place] [address] Oct, [facility] [address] [id number] [address] [place] [address], [place] [address] Oct, [facility] [address] [id number] [address] [place] [address], [place] [address] Oct, [facility] [address] [id number] [address] [place] [address], [place] [address] Oct, [facility] [address] [id number] [address] [place] [address], [place] [address] Oct, [facility] [address] [id number] [address] [place] [address], [place] [address] Oct, [facility] [address] [id number] [address] [place] [address], [place] [address] Oct, [facility] [address] [id number] [address] [place] [address], [place] [address] Oct, [facility] [address] [id number] [address] [place] [address], [place] [address] Sep, [facility] [id number] [id number] August, [facility] [address] [id number] [address] [place] [address], [place] [address] August, [facility] [address] [id number] [address] [place] [address], [place] [address] Jul, [facility] [address] [id number] [address] [place] [address], [place] [address] Jul, [facility] [address] [id number] [address] [place] [address], [place] [address] Jul, [facility] [address] [id number] [address] [place] [address] [place] [address] 22 Jul, 2012 [facility] [address] [id number] [address] [place] [address], [place] [address] 18 Jul, 2012 [facility] [address] [id number] [address] [place] [address], [place] [address] 17 Jul, 2012 [facility] [address] [id number] [address] [place] [address], [place] [address] 16 Jul, 2012 [facility] [address] [id number] [address] [place] [address], [place] [address] 21 Jun, 2012 [facility] [address] [id number] [address] [place] [address], [place] [address] 18 Jun, 2012 [facility] [address] [id number] [address] [place] [address], [place] [address] Jun, [facility] [address] [id number] [address] [place] [address], [place] [address] 04 Jun, 2012 [facility] [address] [id number] [address] [place] [address], [place] [address] 04 Jun, 2012 [facility] [address] [id number] [address] [place] [address], [place] [address] 19 May, 2012 [facility] [address] [id number] [address] [place] [address], [place] [address] 18 May, 2012 [facility] [address] [id number] [address] [place] [address], [place] [address] 04 May, 2012 [facility] [address] [id number] [address] [place] [address], [place] [address] 15 Apr, 2012 [facility] [address] [id number] [address] [place] [address], [place] [address] 14 Apr, 2012 [facility] [address] [id number] [address] [place] [address], [place] [address] 07 Apr, 2012 [facility] [address] [id number] [address] [place] [address], [place] [address] Mar, [facility] [address] [id number] [address] [place] [address], [place] [address] Mar, [facility] [address] [id number] [address] [place] [address], [place] [address] Mar, [facility] [address] [id number] [address] [place] [address], [place] [address] Mar, [facility] [address] [id number] [address] [place] [address], [place] [address] Mar, [facility] [address] [id number] [address] [place] [address], [place] [address] Mar, [facility] [address] [id number] [address] [place] [address], [place] [address] Feb, [facility] [address] [id number] [address] [place] [address], [place] [address] Feb, [facility] [address] [id number] [address] [place] [address], [place] [address] Jan, [facility] [address] [id number] [address] [place] [address], [place] [address] Jan, [facility] [address] [id number] [address] [place] [address], [place] [address] Dec, [facility] [address] [id number] [address] [place] [address], [place] [address] Nov, [facility] [address] [id number] [address] [place] [address], [place] [address] Nov, [facility] [address] [id number] [address] [place] [address], [place] [address] Nov, [facility] [address] [id number] [address] [place] [address], [place] [address] Nov, [facility] [address] [id number] [address] [place] [address], [place] [address] Oct, [facility] [address] [id number] [address] [place] [address], [place] [address] Oct, [facility] [address] [id number] [address] [place] [address], [place] [address] Oct, [facility] [address] [id number] [address] [place] [address], [place] [address] 15 Sep, 2011 [facility] [address] [id number] [address] [place] [address], [place] [address] Sep, [facility] [address] [id number] [address] [place] [address], [place] [address] Sep, [facility] [address] [id number] [address] [place] [address], [place] [address] August, [facility] [address] [id number] [address] [place] [address], [place] [address] August, [facility] [address] [id number] [address] [place] [address], [place] [address] Jul, [facility] [address] [id number] [address] [place] [address], [place] [address] 24 Jul, 2011 [facility] [address] [id number] [address] [place] [address], [place] [address] Jul, [facility] [address] [id number] [address] [place] [address], [place] [address] Jul, [facility] [address] [id number] [address] [place] [address], [place] [address] Jun, [facility] [address] [id number] [address] [place] [address], [place] [address] May, [facility] [address] [id number] [address] [place] [address], [place] [address] Apr, [facility] [address] [id number] [address] [place] [address], [place] [address] Apr, [facility] [address] [id number] [address] [place] [address], [place] [address] Apr, [facility] [address] [id number] [address] [place] [address], [place] [address] Apr, [facility] [address] [id number] [address] [place] [address], [place] [address] Apr, [facility] [address] [id number] [address] [place] [address], [place] [address] Apr, [facility] [address] [id number] [address] [place] [address], [place] [address] Mar, [facility] [address] [id number] [address] [place] [address], [place] [address] Mar, [facility] [address] [id number] [address] [place] [address], [place] [address] Feb, [facility] [address] [id number] [address] [place] [address], [place] [address] Feb, [facility] [address] [id number] [address] [place] [address], [place] [address] Feb, [facility] [address] [id number] [address] [place] [address], [place] [address] Feb, [facility] [address] [id number] [address] [place] [address], [place] [address] Jan, [facility] [address] [id number] [address] [place] [address], [place] [address] Jan, [facility] [address] [id number] [address] [place] [address], [place] [address] Jan, [facility] [address] [id number] [address] [place] [address], [place] [address] Jan, [facility] [address] [id number] [address] [place] [address], [place] [address] Nov, [facility] [address] [id number] [address] [place] [address], [place] [address] Mar, [facility] [address] [id number] [address] [place] [address], [place] [address] Mar, [facility] [address] [id number] [address] [place] [address], [place] [address] 30 Feb, 2010 [facility] [address] [id number] [address] [place] [address], [place] [address] 15 Feb, 2010 [facility] [address] [id number] [address] [place] [address], [place] [address] 19 Jan, 2010 [facility] [address] [id number] [address] [place] [address], [place] [address] Jan, [facility] [address] [id number] [address] [place] [address], [place] [address] 15 Sep, 2009 [facility] [address] [id number] [address] [place] [address], [place] [address] 16 May, 2009 [facility] [address] [id number] [address] [place] [address], [place] [address] Apr, [facility] [address] [id number] [address] [place] [address] Mar, [facility] [address] [id number] [address] [place] [address], [place] [address] 15 Feb, 2009 [facility] [address] [id number] [address] [place] [address] 10 Feb, 2009 [facility] [address] [id number] [address] [place] [address] 10 Feb, 2009 [facility] [address] [id number] [address] [place] [address] 22 Jan, 2009 [facility] [address] [id number] [address] [place] [address], [place] [address] 13 Jan, 2009 [facility] [address] [id number] [address] [place] [address] 13 Jan, 2009 [facility] [address] [id number] [address] [place] [address] 11 Jan, 2009 [facility] [address] [id number] [address] [place] [address], [place] [address] August, IMMUNIZATIONS No Known Immunizations SOCIAL HISTORY Never Assessed REASON FOR VISIT medication PLAN OF CARE VITAL SIGNS MEDICATIONS Medication Instructions Dosage Frequency Start Date End Date Duration S tatus Depakote ER 250 MG Orally in the morning 1 tablet Active Depakote ER 500 mg Orally Once a day in the morning 1 tablet 30 days Active RESULTS No Results PROCEDURES [...] 7 Hospitalization History surgery Hospitalization History [facility], inco tient treatment few times for BH
--- OUTSIDE RECORDS SUMMARY | 2019-09-29 11:03 | XMS REPORT ---
Author Author Cameron RICHARDS Organization [facility] Address [address] [place] [address] Phone Unavailable Care Team Providers Care Molding Manager Name Role Phone DEVORAH RICHARDS Unavailable Unavailable PROBLEMS Type Condition ICD9-CM Code [id number] Code Onset Dates Condition S tatus SNOMED Code Problem Mild mental retardation F70 Active 27187064 Problem Essential hypertension I10 Active 25704303 Problem Obstructive sleep apnea G47.33 Active 18378668 Problem Mild intellectual disability F70 A ctive 22325704 Problem Bipolar disorder, unspecified F31.9 Active 10632926 Problem Diabetes E11.9 Active 90696042 Problem Depression F32.9 Active 56601112 Problem Bipolar disorder, in partial remission, most rec ent episode manic F31.73 Active 82267612 Problem Intermittent explosive disorder in adult F63.81 Active 99137871 Problem Intermittent explosive disorder F63.81 Active 13926452 Problem 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 Active 98866614 Problem Reactive airway disease, unspecified asthma justin rity, uncomplicated J45.909 Active 832485754928 Problem Open-angle glaucoma of both eyes, unspecified glaucoma stage, unspecified open-angle glaucoma type H40.10X0 Acti ve 21470293 Problem Adjustment disorder, unspecified type F43.20 Active 02040714 Problem Hypertensive retinopathy of both eyes H35.033 Active 1981083 Problem Type 2 diabetes mellitus with complication E11.8 Active 59611641 ALLERGIES No Known Allergies SOCIAL HISTORY Never Assessed PLAN OF CARE Activity Details Follow Up 3 Months Reason:RECALL AND R ESTORATIVE ON SITE VITAL SIGNS MEDICATIONS Medication Instructions Dosage Frequency Start Date End Date Duration S tatus Singulair 10 mg Orally Once a day at hs and take Zyrtec in AM 1 tablet in the evening Oct, 31 Active GNP Natural Fiber 0.52 GM Orally Once a day 3 capsules 24h Active Folic Acid 1 MG take 0.5 tablet by Oral route 1 time per day 31 Active Quetiapine Fumarate 100 MG Orally in am Once a day 1 tablet 24h 30 days Active Seroquel 300 MG Orally at bedtime Once a day 1 tablet 24h 30 days Active GlyBURIDE 2.5 MG Orally 2 times a day 0.5 tablet 12h 31 Active Simvastatin 20 MG Orally Once a day 1 tablet at bedtime 24h Active Metoprolol Tartrate 25 MG Orally Twice a day 1 tablet with food 12h 31 Active Omeprazole 20 MG Orally 2 times a day 1 capsule 12h 30 Active Depakote ER 250 MG Orally in the morning 1 tablet Dec, 30 days Active Depakote ER 500 MG Orally in the morning 1 tablet Dec, 30 days Active Test strips N/A test blood sugar 12h Active Albuterol Sulfate 2.5 mg /3 mL (0.083 %) 1 Each by Inhalation route 4 times per day for cough and wheeze PRN for wheezing or cough Dec, 4 Active Actos 15 MG take 1 tablet (15 mg) by oral route once daily 30 Active Abilify 5 MG Orally Once a day 1 tablet 24h 30 days Active desmopressin 0.2 mg 3 Tablet by Oral route 1 time per day qHS Jul, 30 days Active Tamsulosin HCl 0.4 MG TAKE TWO CAPSULES ORALLY DAILY 30 MINUTES AFTER THE SAME MEAL EACH DAY 30 Active ZyrTEC 10 mg by oral route Once a day 1 tablet 24h Active Toviaz 8 MG Orally Once a day 1 tablet 24h A ctive Diovan HCT 80-12.5 MG Orally Once a day 1 tablet 24h 30 Active RESULTS No Results PROCEDURES Procedure Date Ordered Result Body Site PROPHYLAXIS - ADULT July 04, 2016 TOPICAL FLUORIDE VARNISH July 04, 2016 IMMUNIZATIONS No Known Immunizations MEDICAL (GENERAL) HISTORY Type Description Date Medical [...] age 6 Hospitalization History surgery Hospitalization History [facility], inpa tient treatment few times for BH
--- OUTSIDE RECORDS SUMMARY | 2019-09-29 11:04 | XMS REPORT ---
Author Author Cameron BURNETTE Organization [facility] Address [address] [place] [address] Care Team Providers Care Ground Hand Name Role Phone CARLOS BURNETTE Unavailable PROBLEMS Type Condition ICD9-CM Code EIH45-DN Code Onset Dates Condition S tatus SNOMED Code Problem Essential hypertension I10 Active 83009789 Problem Diabetes E11.9 Active 45985582 Problem Depression F32.9 Active 56215339 Problem Gastroesophageal reflux disease without esophagitis K21.9 Active 433455620 Problem Reactive airway disease, mild intermittent, uncomplicated J45.20 Active 162344026 Problem Intermittent explosive disorder in adult F63.81 Active 76459255 Problem Bipolar disorder, in partial remission, most rec ent episode manic F31.73 Active 68802480 Problem Mild intellectual disability F70 A ctive 87159087 Problem Bipolar disorder, unspecified F31.9 Active 59725004 Problem 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 Active 07152034 Problem Reactive airway disease, unspecified asthma justin rity, uncomplicated J45.909 Active 951253697301 Problem Hypertensive retinopathy of both eyes H35.033 Active 9225102 Problem Type 2 diabetes mellitus with complication E11.8 Active 97555088 Problem Adjustment disorder, unspecified type F43.20 Active 67722931 Problem Intermittent explosive disorder F63.81 Active 78973480 Problem Open-angle glaucoma of both eyes, unspecified glaucoma stage, unspecified open-angle glaucoma type H40.10X0 Acti ve 25441598 Problem Obstructive sleep apnea G47.33 Active 54686400 ALLERGIES No Known Allergies ENCOUNTERS Encounter Location Date Diagnosis [facility] [address] [id number] [address] [place] [phone] Sep, [facility] [address] [id number] [address] [place] [address] Jul, [facility] [address] [id number] [address] [place] [address] May, Mild intellectual disability F70 [facility] [address] [id number] [address] [place] [address] May, Mild intellectual disability F70 ; High risk medication use Z79.899 ; Intermittent explosive disorder in adult F63.81 and Bipolar disorder, unspecified F31.9 [facility] [address] [id number] [address] [place] [address] May, [facility] [address] [id number] [address] [place] [address] May, [facility] [address] [id number] [address] [place] [address] Apr, Type 2 diabetes mellitus wit h complication E11.8 ; Mild intellectual disability F70 ; Gastroesophageal reflux disease without esophagitis K21.9 ; Reactive airway disease, mild intermittent, uncomplicated J45.20 and Tobacco abuse Z72.0 [facility] [address] [id number] [address] [place] [address] Apr, High risk medication use Z79 .899 ; Mild intellectual disability F70 ; Intermittent explosive disorder in adult F63.81 and Bipolar disorder, unspecified F31.9 [facility] [id number] [place] [address] [id number] Mar, Encounter for dental exam an d cleaning w/o abnormal findings Z01.20 [facility] [address] [id number] [address] [place] [address] [id number] Mar, Dental examination Z01.20 [facility] [address] [id number] [address] [place] [address] Jan, [facility] [address] [id number] [address] [place] [address] Jan, [facility] [address] [id number] [address] [place] [id number] Jan, Mild intellectual disability F70 ; Bipolar disorder, unspecified F31.9 and Intermittent explosive disorder in adult F63.81 [facility] [address] [id number] [address] [place] [id number] 02 Jan, 2017 Diabetes E11.9 [facility] [address] [id number] [address] [place] [address] [id number] 13 Dec, 2016 Encounter for dental examina tion and cleaning without abnormal findings Z01.20 [facility] [address] [id number] [address] [place] [id number] 12 Dec, 2016 Bipolar disorder, unspecifie d F31.9 ; Intermittent explosive disorder in adult F63.81 and Mild intellectual disability F70 [facility] [address] [id number] [address] [place] [phone] Nov, Diabetes E11.9 [facility] [address] [id number] [address] [place] [id number] Nov, [facility] [address] [id number] [address] [place] [address] Nov, Diabetes E11.9 and Colon can cer screening Z12.[id number] [place] [address] [id number] 21 Sep, 2016 Dental examination Z01.20 [facility] [address] [id number] [address] [place] [address] [id number] 21 Sep, 2016 Encounter for dental examina tion and cleaning without abnormal findings Z01.20 [facility] [address] [id number] [address] [place] [phone] Sep, Bipolar disorder, unspecifie d F31.9 [facility] [address] [id number] [address] [place] [address] Sep, Bipolar disorder, unspecifie d F31.9 [facility] [address] [id number] [address] [place] [address] Jul, [facility] [address] [id number] [address] [place] [phone] Jul, Type 2 diabetes mellitus wit h complication E11.8 [facility] [address] [id number] [address] [place] [address] [id number] 15 Jun, 2016 Encounter for dental examina tion and cleaning without abnormal findings Z01.20 [facility] [address] [id number] [id number] 15 Jun, 2016 Dental examination Z01.20 [facility] [address] [id number] [address] [place] [phone] 18 Apr, 2016 Sports physical Z02.5 [facility] [id number] [place] [id number] 14 Mar, 2016 Bipolar disorder, in partial remission, most recent episode manic F31.73 and Intermittent explosive disorder in adult F63.81 [facility] [address] [id number] [address] [place] [phone] Mar, [facility] [address] [id number] [address] [place] [phone] Mar, Diabetes E11.9 [facility] [address] [place] [address] [id number] Feb, Encounter for dental examina tion and cleaning without abnormal findings Z01.20 [facility] [address] [id number] [address] [place] [phone] 22 Dec, 2015 Nocturnal hypoxemia G47.34 a nd Encounter for immunization Z23 [facility] [address] [id number] [address] [place] [phone] 15 Dec, 2015 [facility] [address] [id number] [address] [place] [phone] Dec, [facility] [id number] [place] [phone] Dec, Bipolar disorder, unspecifie d F31.9 [facility] [address] [id number] [address] [place] [address] [id number] Oct, Encounter for dental examina tion and cleaning without abnormal findings Z01.20 [facility] [id number] [place] [address] [id number] 13 Oct, 2015 Dental examination Z01.20 [facility] [address] [id number] [address] [place] [phone] 07 Oct, 2015 Diabetes E11.9 [facility] [address] [address] Oct, Diabetes E11.9 ; Reactive ai rway disease, mild intermittent, uncomplicated J45.20 and Tobacco abuse Z72.0 [place] [address] [phone] Sep, Bipolar disorder, unspecifie d F31.9 and Depression F32.9 [place] [address] [place] [id number] [address] [place] [phone] Sep, [place] [address] [place] [id number] [address] [place] [phone] August, Tinea pedis of both feet B35 .3 and DM w/o complication type II, uncontrolled E11.65 [place] [address] [place] [id number] [address] [place] [phone] Jul, [place] [address] [place] [id number] [address] [place] [id number] Jul, [place] [address] [place] [id number] [address] [place] [phone] Jul, Obstructive sleep apnea G47. 33 [facility] [address] [id number] [address] [place] [phone] Jun, Diabetes E11.9 [facility] [address] [id number] [address] [place] [id number] Jun, [facility] [address] [place] [id number] [address] [place] [phone] Jun, [place] [address] [address] Jun, Bipolar disorder, unspecifie d F31.9 and Mental retardation F79 [place] [address] [address] Apr, [place] [address] [address] Feb, Encounter for immunization Z 23 ; Diabetes E11.9 ; Cough R05 and Nicotine abuse Z72.0 [place] [address] [address] Jan, Bipolar disorder, unspecifie d F31.9 and Diabetes mellitus without mention of complication, type II or unspecified type, uncontrolled 250.02 [place] [address] [address] Jan, [place] [address] [address] Dec, Reactive airway disease 493. 90 and Enuresis 788.30 [place] [address] [address] Dec, [place] [address] [address] Nov, [place] [address] [address] Nov, [place] [address] [address] Nov, Annual physical exam V70.0 ; Urinary incontinence 788.30 ; Diabetes 250.00 and Hypertension 401.9 [place] [address] [address] Oct, Diabetes mellitus without me ntion of complication, type II or unspecified type, uncontrolled 250.02 [place] [address] [address] Oct, Diabetes mellitus without me ntion of complication, type II or unspecified type, uncontrolled 250.02 [facility] [address] [id number] [address] [place] [phone] Oct, Diabetes mellitus without me ntion of complication, type II or unspecified type, uncontrolled 250.02 [facility] [address] [id number] [address] [place] [phone] Oct, [facility] [address] [id number] [address] [place] [phone] Oct, [facility] [address] [id number] [address] [place] [phone] Oct, Bipolar disorder, unspecifie d 296.80 [facility] [address] [id number] [address] [place] [address] [id number] Sep, Dental examination V72.2 [facility] [address] [id number] [address] [place] [phone] August, [facility] [address] [id number] [address] [place] [address] [id number] August, Dental examination V72.2 [facility] [address] [id number] [address] [place] [phone] August, [facility] [address] [id number] [address] [place] [phone] Jul, [facility] [address] [id number] [address] [place] [phone] Jul, [facility] [address] [id number] [address] [place] [phone] Jun, [facility] [address] [id number] [address] [place] [phone] Jun, [facility] [address] [id number] [address] [place] [phone] Jun, [facility] [address] [id number] [address] [place] [phone] Jun, 2014 [facility] [address] [id number] [address] [place] [address], [place] [address] 23 May, 2014 [facility] [address] [id number] [address] [place] [address], [place] [address] 23 May, 2014 [facility] [address] [id number] [address] [place] [address], [place] [address] 16 May, 2014 [facility] [address] [id number] [address] [place] [address], [place] [address] 16 May, 2014 [facility] [address] [id number] [address] [place] [address], [place] [address] 16 May, 2014 [facility] [address] [id number] [address] [place] [address], [place] [address] 16 May, 2014 [facility] [address] [id number] [address] [place] [address], [place] [address] 16 May, 2014 [facility] [address] [id number] [address] [place] [address], [place] [address] 16 May, 2014 [facility] [address] [id number] [address] [place] [address], [place] [address] 16 May, 2014 [facility] [address] [id number] [address] [place] [address], [place] [address] 16 May, 2014 [facility] [address] [id number] [address] [place] [address], [place] [address] 16 May, 2014 [facility] [address] [id number] [address] [place] [address], [place] [address] 16 May, 2014 [facility] [address] [id number] [address] [place] [address], [place] [address] 16 May, 2014 [facility] [address] [id number] [address] [place] [address], [place] [address] 16 May, 2014 [facility] [address] [id number] [address] [place] [address], [place] [address] May, [facility] [address] [id number] [address] [place] [address], [place] [address] Apr, [facility] [address] [id number] [address] [place] [address], [place] [address] Apr, [facility] [address] [id number] [address] [place] [address], [place] [address] Apr, [facility] [address] [id number] [address] [place] [address], [place] [address] Apr, [facility] [address] [id number] [address] [place] [address], [place] [address] Apr, [facility] [address] [id number] [address] [place] [address], [place] [address] Apr, [facility] [address] [id number] [address] [place] [address], [place] [address] Apr, [facility] [address] [id number] [address] [place] [address], [place] [address] Apr, [facility] [address] [id number] [address] [place] [address], [place] [address] Apr, [facility] [address] [id number] [address] [place] [address], [place] [address] Apr, [facility] [address] [id number] [address] [place] [address], [place] [address] Apr, [facility] [address] [id number] [address] [place] [address], [place] [address] Apr, [facility] [address] [id number] [address] [place] [address], [place] [address] Mar, [facility] [address] [id number] [address] [place] [address], [place] [address] Mar, [facility] [address] [id number] [address] [place] [address], [place] [address] Mar, [facility] [address] [id number] [address] [place] [address] 10 Mar, 2014 [facility] [address] [id number] [address] [place] [address], [place] [address] 10 Mar, 2014 [facility] [address] [id number] [address] [place] [address], [place] [address] Mar, [facility] [address] [id number] [address] [place] [address], [place] [address] Feb, [facility] [address] [id number] [address] [place] [address], [place] [address] Feb, [facility] [address] [id number] [address] [place] [address], [place] [address] Feb, [facility] [address] [id number] [address] [place] [address], [place] [address] Feb, [facility] [address] [id number] [address] [place] [address], [place] [address] 14 Jan, 2014 [facility] [address] [id number] [address] [place] [address], [place] [address] 14 Jan, 2014 [facility] [address] [id number] [address] [place] [address], [place] [address] 14 Jan, 2014 [facility] [address] [id number] [address] [place] [address], [place] [address] 14 Jan, 2014 [facility] [address] [id number] [address] [place] [address], [place] [address] 22 Dec, 2013 [facility] [address] [id number] [address] [place] [address], [place] [address] 22 Dec, 2013 [facility] [address] [id number] [address] [place] [address], [place] [address] 15 Dec, 2013 [facility] [address] [id number] [address] [place] [address], [place] [address] 15 Dec, 2013 [facility] [address] [id number] [address] [place] [address], [place] [address] Nov, [facility] [address] [id number] [facility] [place] [address] Nov, [facility] [address] [id number] [facility] [place] [address] Nov, [facility] [address] [id number] [facility] [place] [address] Nov, [facility] [address] [id number] [address] [place] [address], [place] [address] Nov, [facility] [address] [id number] [address] [place] [address], [place] [address] Nov, [facility] [address] [id number] [address] [place] [address], [place] [address] Nov, [facility] [address] [id number] [address] [place] [address], [place] [address] Oct, [facility] [address] [id number] [address] [place] [address], [place] [address] Oct, [facility] [address] [id number] [address] [place] [address], [place] [address] Oct, [facility] [address] [id number] [address] [place] [address], [place] [address] Oct, [facility] [address] [id number] [address] [place] [address], [place] [address] Oct, [facility] [address] [id number] [address] [place] [address], [place] [address] Oct, [facility] [address] [id number] [address] [place] [address], [place] [address] Oct, [facility] [address] [id number] [address] [place] [address], [place] [address] Sep, [facility] [address] [id number] [address] [place] [address], [place] [address] Sep, [facility] [address] [id number] [address] [place] [address], [place] [address] Sep, [facility] [address] [id number] [facility] [place] [address] Sep, [facility] [address] [id number] [address] [place] [address], [place] [address] Sep, [facility] [address] [id number] [address] [place] [address], [place] [address] Jul, [facility] [address] [id number] [address] [place] [address], [place] [address] Jul, [facility] [address] [id number] [address] [place] [address], [place] [address] Jul, [facility] [address] [id number] [address] [place] [address], [place] [address] Jul, [facility] [address] [id number] [address] [place] [address], [place] [address] Jul, [facility] [address] [id number] [address] [place] [address], [place] [address] Jul, [facility] [address] [id number] [address] [place] [address], [place] [address] Jul, [facility] [address] [id number] [address] [place] [address], [place] [address] Jul, [facility] [address] [id number] [address] [place] [address], [place] [address] Jul, [facility] [address] [id number] [address] [place] [address], [place] [address] Jul, [facility] [address] [id number] [address] [place] [address], [place] [address] Jul, [facility] [address] [id number] [address] [place] [address], [place] [address] Jul, [facility] [address] [id number] [address] [place] [address], [place] [address] Jun, [facility] [address] [id number] [address] [place] [address], [place] [address] Jun, [facility] [address] [id number] [address] [place] [address], [place] [address] Jun, [facility] [address] [id number] [address] [place] [address], [place] [address] Jun, [facility] [address] [id number] [address] [place] [address], [place] [address] Jun, [facility] [address] [id number] [address] [place] [address], [place] [address] Jun, [facility] [address] [id number] [address] [place] [address], [place] [address] Jun, [facility] [address] [id number] [address] [place] [address], [place] [address] Jun, [facility] [address] [id number] [address] [place] [address], [place] [address] May, [facility] [address] [id number] [address] [place] [address], [place] [address] May, [facility] [address] [id number] [address] [place] [address], [place] [address] May, [facility] [address] [id number] [address] [place] [address], [place] [address] May, [facility] [address] [id number] [address] [place] [address], [place] [address] May, [facility] [address] [id number] [address] [place] [address], [place] [address] May, [facility] [address] [id number] [address] [place] [address], [place] [address] May, [facility] [address] [id number] [address] [place] [address], [place] [address] May, [facility] [address] [id number] [address] [place] [address], [place] [address] Apr, [facility] [address] [id number] [address] [place] [address], [place] [address] Apr, [facility] [address] [id number] [address] [place] [address], [place] [address] Apr, [facility] [address] [id number] [address] [place] [address], [place] [address] Apr, [facility] [address] [id number] [address] [place] [address], [place] [address] Mar, [facility] [address] [id number] [address] [place] [address], [place] [address] Mar, [facility] [address] [id number] [address] [place] [address], [place] [address] Mar, [facility] [address] [id number] [address] [place] [address], [place] [address] Feb, [facility] [address] [id number] [address] [place] [address], [place] [address] Feb, [facility] [address] [id number] [address] [place] [address], [place] [address] Feb, [facility] [address] [id number] [address] [place] [address], [place] [address] Feb, [facility] [address] [id number] [address] [place] [address], [place] [address] Feb, [facility] [facility] [address] [id number] [address] [place] [address], [place] [address] Feb, [facility] [address] [id number] [address] [place] [address], [place] [address] Jan, [facility] [address] [id number] [address] [place] [address], [place] [address] Jan, [facility] [address] [id number] [address] [place] [address], [place] [address] Jan, [facility] [address] [id number] [address] [place] [address], [place] [address] Jan, [facility] [address] [id number] [address] [place] [address], [place] [address] Jan, [facility] [address] [id number] [address] [place] [address], [place] [address] Jan, [facility] [address] [id number] [address] [place] [address], [place] [address] Jan, [facility] [address] [id number] [address] [place] [address], [place] [address] Dec, [facility] [address] [id number] [address] [place] [address], [place] [address] 16 Dec, 2012 [facility] [address] [id number] [address] [place] [address], [place] [address] Dec, [facility] [address] [id number] [address] [place] [address], [place] [address] 05 Dec, 2012 [facility] [address] [id number] [address] [place] [address], [place] [address] Nov, [facility] [address] [id number] [address] [place] [address], [place] [address] Nov, [facility] [address] [id number] [address] [place] [address], [place] [address] Nov, [facility] [address] [id number] [address] [place] [address], [place] [address] Nov, [facility] [address] [id number] [address] [place] [address], [place] [address] Nov, [facility] [address] [id number] [address] [place] [address], [place] [address] Nov, [facility] [address] [id number] [address] [place] [address], [place] [address] Nov, [facility] [address] [id number] [address] [place] [address], [place] [address] Oct, [facility] [address] [id number] [address] [place] [address], [place] [address] Oct, [facility] [address] [id number] [address] [place] [address], [place] [address] Oct, [facility] [address] [id number] [address] [place] [address], [place] [address] Oct, [facility] [address] [id number] [address] [place] [address], [place] [address] Oct, [facility] [address] [id number] [address] [place] [address], [place] [address] Oct, [facility] [address] [id number] [address] [place] [address], [place] [address] Oct, [facility] [address] [id number] [address] [place] [address], [place] [address] Oct, [facility] [address] [id number] [address] [place] [address], [place] [address] Sep, [facility] [address] [id number] [id number] August, [facility] [address] [id number] [address] [place] [address], [place] [address] August, [facility] [address] [id number] [address] [place] [address], [place] [address] Jul, [facility] [address] [id number] [address] [place] [address], [place] [address] Jul, [facility] [address] [id number] [address] [place] [address], [place] [address] Jul, [facility] [address] [id number] [address] [place] [address], [place] [address] Jul, [facility] [address] [id number] [address] [place] [address], [place] [address] Jul, [facility] [address] [id number] [address] [place] [address], [place] [address] 17 Jul, 2012 [facility] [address] [id number] [address] [place] [address], [place] [address] 16 Jul, 2012 [facility] [address] [id number] [address] [place] [address], [place] [address] 21 Jun, 2012 [facility] [address] [id number] [address] [place] [address], [place] [address] 18 Jun, 2012 [facility] [address] [id number] [address] [place] [address], [place] [address] 11 Jun, 2012 [facility] [address] [id number] [address] [place] [address], [place] [address] 04 Jun, 2012 [facility] [address] [id number] [address] [place] [address], [place] [address] 04 Jun, 2012 [facility] [address] [id number] [address] [place] [address], [place] [address] 19 May, 2012 [facility] [address] [id number] [address] [place] [address], [place] [address] 18 May, 2012 [facility] [address] [id number] [address] [place] [address], [place] [address] 04 May, 2012 [facility] [address] [id number] [address] [place] [address], [place] [address] 15 Apr, 2012 [facility] [address] [id number] [address] [place] [address], [place] [address] 14 Apr, 2012 [facility] [address] [id number] [address] [place] [address], [place] [address] 07 Apr, 2012 [facility] [address] [id number] [address] [place] [address], [place] [address] Mar, [facility] [address] [id number] [address] [place] [address], [place] [address] 31 Mar, 2012 [facility] [address] [id number] [address] [place] [address], [place] [address] Mar, [facility] [address] [id number] [address] [place] [address], [place] [address] Mar, [facility] [address] [id number] [address] [place] [address], [place] [address] Mar, [facility] [address] [id number] [address] [place] [address], [place] [address] Mar, [facility] [address] [id number] [address] [place] [address], [place] [address] Feb, [facility] [address] [id number] [address] [place] [address], [place] [address] Feb, [facility] [address] [id number] [address] [place] [address], [place] [address] Jan, [facility] [address] [id number] [address] [place] [address], [place] [address] Jan, [facility] [address] [id number] [address] [place] [address], [place] [address] Dec, [facility] [address] [id number] [address] [place] [address], [place] [address] Nov, [facility] [address] [id number] [address] [place] [address], [place] [address] Nov, [facility] [address] [id number] [address] [place] [address], [place] [address] Nov, [facility] [address] [id number] [address] [place] [address], [place] [address] Nov, [facility] [address] [id number] [address] [place] [address], [place] [address] Oct, [facility] [address] [id number] [address] [place] [address], [place] [address] Oct, [facility] [address] [id number] [address] [place] [address], [place] [address] Oct, [facility] [address] [id number] [address] [place] [address], [place] [address] 15 Sep, 2011 [facility] [address] [id number] [address] [place] [address], [place] [address] 14 Sep, 2011 [facility] [address] [id number] [address] [place] [address], [place] [address] 05 Sep, 2011 [facility] [address] [id number] [address] [place] [address], [place] [address] August, [facility] [address] [id number] [address] [place] [address], [place] [address] August, [facility] [address] [id number] [address] [place] [address], [place] [address] Jul, [facility] [address] [id number] [address] [place] [address], [place] [address] 24 Jul, 2011 [facility] [address] [id number] [address] [place] [address], [place] [address] Jul, [facility] [address] [id number] [address] [place] [address], [place] [address] Jul, [facility] [address] [id number] [address] [place] [address], [place] [address] Jun, [facility] [address] [id number] [address] [place] [address], [place] [address] May, [facility] [address] [id number] [address] [place] [address], [place] [address] Apr, [facility] [address] [id number] [address] [place] [address], [place] [address] Apr, [facility] [address] [id number] [address] [place] [address], [place] [address] Apr, [facility] [address] [id number] [address] [place] [address], [place] [address] Apr, [facility] [address] [id number] [address] [place] [address], [place] [address] Apr, [facility] [address] [id number] [address] [place] [address], [place] [address] Apr, [facility] [address] [id number] [address] [place] [address], [place] [address] Mar, [facility] [address] [id number] [address] [place] [address], [place] [address] Mar, [facility] [address] [id number] [address] [place] [address], [place] [address] Feb, [facility] [address] [id number] [address] [place] [address], [place] [address] Feb, [facility] [address] [id number] [address] [place] [address], [place] [address] Feb, [facility] [address] [id number] [address] [place] [address], [place] [address] Feb, [facility] [address] [id number] [address] [place] [address], [place] [address] Jan, [facility] [address] [id number] [address] [place] [address], [place] [address] Jan, [facility] [address] [id number] [address] [place] [address], [place] [address] Jan, [facility] [address] [id number] [address] [place] [address], [place] [address] Jan, [facility] [address] [id number] [address] [place] [address], [place] [address] Nov, [facility] [address] [id number] [address] [place] [address], [place] [address] Mar, [facility] [address] [id number] [address] [place] [address], [place] [address] Mar, [facility] [address] [id number] [address] [place] [address], [place] [address] 30 Feb, 2010 [facility] [address] [id number] [address] [place] [address], [place] [address] 15 Feb, 2010 [facility] [address] [id number] [address] [place] [address] Jan, [facility] [address] [id number] [address] [place] [address] Jan, [facility] [address] [id number] [address] [place] [address] Sep, [facility] [address] [id number] [address] [place] [address] May, [facility] [address] [id number] [address] [place] [address] Apr, [facility] [address] [id number] [address] [place] [address] Mar, [facility] [address] [id number] [address] [place] [id number] Feb, [facility] [address] [id number] [address] [place] [address] Feb, [facility] [address] [id number] [address] [place] [address] Feb, [facility] [address] [id number] [address] [place] [address] Jan, [facility] [address] [id number] [address] [place] [address] Jan, [facility] [address] [id number] [address] [place] [id number] Jan, [facility] [address] [id number] [address] [place] [id number] Jan, [facility] [address] [id number] [address] [place] [id number] August, IMMUNIZATIONS No Known Immunizations SOCIAL HISTORY Never Assessed REASON FOR VISIT PLAN OF CARE Activity Details Follow Up prn Reason:Recall VITAL SIGNS MEDICATIONS Unknown Medications RESULTS No Results PROCEDURES Procedure Date Ordered Result Body Site RESIN COMPOS - 2 SURFACES POSTERIOR October 10, 2016 Dental Outreach adjust balance October 10, 2016 Billing Notes on claim October 10, 2016 INSTRUCTIONS MEDICATIONS ADMINISTERED No Known Medications MEDICAL [...] age 6 Hospitalization History surgery Hospitalization History [facility], [facility] treatment few times for BH
--- OUTSIDE RECORDS SUMMARY | 2019-09-29 11:04 | XMS REPORT ---
Author Author Cameron ALANIZ Organization [facility] Address [address] [place] [address] Care Team Providers Care Nursing Associate Name Role Phone JEET ALANIZ Unavailable PROBLEMS Type Condition ICD9-CM Code PFE47-ZX Code Onset Dates Condition S tatus SNOMED Code Problem Depression F32.9 Active 60683038 Problem Bipolar disorder, in partial remission, most rec ent episode manic F31.73 Active 47024895 Problem Diabetes E11.9 Active 22462129 Problem Neuropathy G62.9 Active 476544797 Problem Gastroesophageal reflux disease without esophagitis K21.9 Active 336914574 Problem Bipolar disorder, unspecified F31.9 Active 77528029 Problem Intermittent explosive disorder in adult F63.81 Active 17048241 Problem Reactive airway disease, mild intermittent, uncomplicated J45.20 Active 629336918 Problem Mild intellectual disability F70 A ctive 48544012 Problem Reactive airway disease, unspecified asthma justin rity, uncomplicated J45.909 Active 356212091855 Problem Adjustment disorder, unspecified type F43.20 Active 88356524 Problem 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 Active 03534784 Problem Obstructive sleep apnea G47.33 Active 64220755 Problem Essential hypertension I10 Active 91379015 Problem Open-angle glaucoma of both eyes, unspecified glaucoma stage, unspecified open-angle glaucoma type H40.10X0 Acti ve 85067857 Problem Type 2 diabetes mellitus with complication E11.8 Active 55390550 Problem Hypertensive retinopathy of both eyes H35.033 Active 6871386 Problem Intermittent explosive disorder F63.81 Active 29069498 ALLERGIES No Information ENCOUNTERS Encounter Location Date Diagnosis [facility] [address] [facility] [id number] [address] [place] [address] Oct, [facility] [id number] [place] [id number] Oct, [facility] [address] [facility] [id number] [address] [place] [address] Oct, [facility] [address] [facility] [id number] [address] [place] [address] Sep, Type 2 diabetes mellitus wit h complication E11.8 and Colon cancer screening Z12.11 [facility] [address] [facility] [id number] [address] [place] [address] Sep, Type 2 diabetes mellitus wit h complication E11.8 ; Colon cancer screening Z12.11 and Neuropathy G62.9 [facility] [address] [facility] [id number] [address] [place] [address] August, Diabetes E11.9 [facility] [address] [facility] [id number] [address] [place] [address] [phone] Jul, Dental examination Z01.20 [facility] [address] [place] [id number] [address] [place] [address] 27 May, 2017 Mild intellectual disability F70 [place] [address] [place] [id number] [address] [place] [address] May, Mild intellectual disability F70 ; High risk medication use Z79.899 ; Intermittent explosive disorder in adult F63.81 and Bipolar disorder, unspecified F31.9 [facility] [address] [facility] [id number] [address] [place] [address] May, [facility] [address] [place] [id number] [address] [place] [address] May, [facility] [address] [facility] [id number] [address] [place] [address] Apr, Type 2 diabetes mellitus wit h complication E11.8 ; Mild intellectual disability F70 ; Gastroesophageal reflux disease without esophagitis K21.9 ; Reactive airway disease, mild intermittent, uncomplicated J45.20 and Tobacco abuse Z72.0 [facility] [address] [place] [id number] [address] [place] [address] Apr, High risk medication use Z79 .899 ; Mild intellectual disability F70 ; Intermittent explosive disorder in adult F63.81 and Bipolar disorder, unspecified F31.9 [facility] [address] [id number] [address] [place] [address] [phone] Mar, Encounter for dental exam an d cleaning w/o abnormal findings Z01.20 [facility] [address] [id number] [address] [place] [address] [id number] Mar, Dental examination Z01.20 [facility] [address] [id number] [address] [place] [address] 12 Jan, 2017 [facility] [address] [id number] [address] [place] [address] Jan, [facility] [address] [id number] [address] [place] [address] Jan, Mild intellectual disability F70 ; Bipolar disorder, unspecified F31.9 and Intermittent explosive disorder in adult F63.81 [facility] [address] [id number] [address] [place] [address] 02 Jan, 2017 Diabetes E11.9 [facility] [address] [id number] [address] [place] [address] [id number] 13 Dec, 2016 Encounter for dental examina tion and cleaning without abnormal findings Z01.20 [facility] [address] [id number] [address] [place] [address] 12 Dec, 2016 Bipolar disorder, unspecifie d F31.9 ; Intermittent explosive disorder in adult F63.81 and Mild intellectual disability F70 [facility] [address] [id number] [address] [place] [address] Nov, Diabetes E11.9 [facility] [address] [id number] [address] [place] [address] Nov, [facility] [address] [id number] [address] [place] [address] Nov, Diabetes E11.9 and Colon can cer screening Z12.[address] [facility] [address] [id number] [id number] 21 Sep, 2016 Dental examination Z01.20 [facility] [address] [id number] [address] [place] [address] [id number] 21 Sep, 2016 Encounter for dental examina tion and cleaning without abnormal findings Z01.20 [facility] [address] [id number] [address] [place] [address] 13 Sep, 2016 Bipolar disorder, unspecifie d F31.9 [facility] [address] [id number] [address] [place] [address] 12 Sep, 2016 Bipolar disorder, unspecifie d F31.9 [facility] [address] [facility] [id number] [address] [place] [address] Jul, [facility] [address] [facility] [id number] [address] [place] [address] Jul, Type 2 diabetes mellitus wit h complication E11.8 [facility] [address] [id number] [address] [place] [id number] 15 Jun, 2016 Encounter for dental examina tion and cleaning without abnormal findings Z01.20 [facility] [address] [facility] [address] [id number] [id number] 15 Jun, 2016 Dental examination Z01.20 [facility] [address] [facility] [id number] [address] [place] [address] 18 Apr, 2016 Sports physical Z02.5 [facility] [address] [facility] [id number] [address] [place] [address] 14 Mar, 2016 Bipolar disorder, in partial remission, most recent episode manic F31.73 and Intermittent explosive disorder in adult F63.81 [facility] [address] [id number] [address] [place] [address] 08 Mar, 2016 [facility] [address] [facility] [id number] [address] [place] [address] Mar, Diabetes E11.9 [facility] [address] [id number] [address] [place] [address] [phone] Feb, Encounter for dental examina tion and cleaning without abnormal findings Z01.20 [facility] [address] [id number] [address] [place] [address] 22 Dec, 2015 Nocturnal hypoxemia G47.34 a nd Encounter for immunization Z23 [facility] [address] [facility] [id number] [address] [place] [phone] 15 Dec, 2015 [facility] [address] [facility] [id number] [address] [place] [address] Dec, [facility] [address] [facility] [id number] [address] [place] [address] Dec, Bipolar disorder, unspecifie d F31.9 [facility] [address] [id number] [address] [place] [id number] Oct, Encounter for dental examina tion and cleaning without abnormal findings Z01.20 [facility] [id number] [place] [address] [id number] Oct, Dental examination Z01.20 [facility] [address] [facility] [id number] [address] [place] [address] Oct, Diabetes E11.9 [facility] [address] [facility] [id number] [address] [place] [address] Oct, Diabetes E11.9 ; Reactive ai rway disease, mild intermittent, uncomplicated J45.20 and Tobacco abuse Z72.0 [facility] [address] [facility] [id number] [address] [place] [address] Sep, Bipolar disorder, unspecifie d F31.9 and Depression F32.9 [place] [address] [facility] [id number] [address] [place] [address] Sep, [facility] [address] [facility] [id number] [address] [place] [address] August, Tinea pedis of both feet B35 .3 and DM w/o complication type II, uncontrolled E11.65 [place] [address] [address] Jul, [place] [address] [address] Jul, [place] [address] [address] Jul, Obstructive sleep apnea G47. 33 [place] [address] [address] Jun, Diabetes E11.9 [place] [address] [address] Jun, [place] [address] [address] Jun, [place] [address] [address] Jun, Bipolar disorder, unspecifie d F31.9 and Mental retardation F79 [place] [address] [address] Apr, [place] [address] [address] Feb, Diabetes E11.9 ; Encounter f or immunization Z23 ; Cough R05 and Nicotine abuse Z72.0 [place] [address] [address] Jan, Bipolar disorder, unspecifie d F31.9 and Diabetes mellitus without mention of complication, type II or unspecified type, uncontrolled 250.02 [place] [address] [address] Jan, [place] [address] [address] Dec, Reactive airway disease 493. 90 and Enuresis 788.30 [place] [address] [place] [address] Dec, [facility] [address] [id number] [address] [place] [address] Nov, [facility] [address] [facility] [id number] [address] [place] [address] Nov, [facility] [address] [facility] [id number] [address] [place] [address] Nov, Annual physical exam V70.0 ; Urinary incontinence 788.30 ; Diabetes 250.00 and Hypertension 401.9 [facility] [address] [id number] [address] [place] [address] Oct, Diabetes mellitus without me ntion of complication, type II or unspecified type, uncontrolled 250.02 [facility] [address] [facility] [id number] [address] [place] [address] Oct, Diabetes mellitus without me ntion of complication, type II or unspecified type, uncontrolled 250.02 [facility] [address] [facility] [id number] [address] [place] [address] Oct, Diabetes mellitus without me ntion of complication, type II or unspecified type, uncontrolled 250.02 [facility] [address] [facility] [id number] [address] [place] [address] Oct, [facility] [address] [facility] [id number] [address] [place] [address] Oct, [facility] [address] [facility] [id number] [address] [place] [address] Oct, Bipolar disorder, unspecifie d 296.80 [facility] [address] [id number] [address] [place] [address] [id number] Sep, Dental examination V72.2 [facility] [address] [id number] [address] [place] [address] August, [facility] [address] [id number] [address] [place] [address] [id number] August, Dental examination V72.2 [facility] [address] [id number] [address] [place] [address], [place] [address] August, [facility] [address] [id number] [address] [place] [address], [place] [address] 14 Jul, 2014 [facility] [address] [id number] [address] [place] [address], [place] [address] Jul, [facility] [address] [id number] [address] [place] [address], [place] [address] 17 Jun, 2014 [facility] [address] [id number] [address] [place] [address], [place] [address] Jun, [facility] [address] [id number] [address] [place] [address], [place] [address] Jun, [facility] [address] [id number] [address] [place] [address], [place] [address] Jun, [facility] [address] [id number] [address] [place] [address], [place] [address] May, [facility] [address] [id number] [address] [place] [address], [place] [address] 23 May, 2014 [facility] [address] [id number] [address] [place] [address], [place] [address] 16 May, 2014 [facility] [address] [id number] [address] [place] [address] 16 May, 2014 [facility] [address] [id number] [address] [place] [address] May, 2014 [facility] [address] [id number] [address] [place] [address], [place] [address] May, 2014 [facility] [address] [id number] [address] [place] [address] 16 May, 2014 [facility] [address] [id number] [address] [place] [address] 16 May, 2014 [facility] [address] [id number] [address] [place] [address], [place] [address] 16 May, 2014 [facility] [address] [id number] [address] [place] [address], [place] [address] May, 2014 [facility] [address] [id number] [address] [place] [address], [place] [address] May, 2014 [facility] [address] [id number] [address] [place] [address], [place] [address] May, 2014 [facility] [address] [id number] [address] [place] [address], [place] [address] May, 2014 [facility] [address] [id number] [address] [place] [address], [place] [address] May, 2014 [facility] [address] [id number] [address] [place] [address], [place] [address] May, [facility] [address] [id number] [address] [place] [address], [place] [address] Apr, [facility] [address] [id number] [address] [place] [address], [place] [address] Apr, [facility] [address] [id number] [address] [place] [address], [place] [address] Apr, [facility] [address] [id number] [address] [place] [address], [place] [address] Apr, [facility] [address] [id number] [address] [place] [address], [place] [address] Apr, [facility] [address] [id number] [address] [place] [address], [place] [address] Apr, [facility] [address] [id number] [address] [place] [address], [place] [address] Apr, [facility] [address] [id number] [address] [place] [address], [place] [address] Apr, [facility] [address] [id number] [address] [place] [address], [place] [address] Apr, [facility] [address] [id number] [address] [place] [address], [place] [address] Apr, [facility] [address] [id number] [address] [place] [address], [place] [address] Apr, [facility] [address] [id number] [address] [place] [address], [place] [address] Apr, [facility] [address] [id number] [address] [place] [address], [place] [address] Mar, [facility] [address] [id number] [address] [place] [address], [place] [address] Mar, [facility] [address] [id number] [address] [place] [address], [place] [address] Mar, [facility] [address] [id number] [address] [place] [address], [place] [address] Mar, [facility] [address] [id number] [address] [place] [address], [place] [address] Mar, [facility] [address] [id number] [address] [place] [address], [place] [address] Mar, [facility] [address] [id number] [address] [place] [address], [place] [address] Feb, [facility] [address] [id number] [address] [place] [address], [place] [address] Feb, [facility] [address] [id number] [address] [place] [address], [place] [address] Feb, [facility] [address] [id number] [address] [place] [address], [place] [address] Feb, [facility] [address] [id number] [address] [place] [address], [place] [address] 14 Jan, 2014 [facility] [address] [id number] [address] [place] [address], [place] [address] 14 Jan, 2014 [facility] [address] [id number] [address] [place] [address], [place] [address] 14 Jan, 2014 [facility] [address] [id number] [address] [place] [address], [place] [address] 14 Jan, 2014 [facility] [address] [id number] [address] [place] [address], [place] [address] Dec, [facility] [address] [id number] [address] [place] [address], [place] [address] Dec, [facility] [address] [id number] [address] [place] [address], [place] [address] Dec, [facility] [address] [id number] [address] [place] [address], [place] [address] Dec, [facility] [address] [id number] [address] [place] [address], [place] [address] Nov, [facility] [address] [id number] [address] [place] [address], [place] [address] Nov, [facility] [address] [id number] [address] [place] [address], [place] [address] Nov, [facility] [address] [id number] [address] [place] [address], [place] [address] Nov, [facility] [address] [id number] [address] [place] [address], [place] [address] Nov, [facility] [address] [id number] [address] [place] [address], [place] [address] Nov, [facility] [address] [id number] [address] [place] [address], [place] [address] Nov, [facility] [address] [id number] [address] [place] [address], [place] [address] Oct, [facility] [address] [id number] [address] [place] [address], [place] [address] Oct, [facility] [address] [id number] [address] [place] [address], [place] [address] Oct, [facility] [address] [id number] [address] [place] [address], [place] [address] Oct, [facility] [address] [id number] [address] [place] [address], [place] [address] Oct, [facility] [address] [id number] [address] [place] [address], [place] [address] Oct, [facility] [address] [id number] [address] [place] [address], [place] [address] Oct, [facility] [address] [id number] [address] [place] [address], [place] [address] Sep, [facility] [address] [id number] [address] [place] [address], [place] [address] Sep, [facility] [address] [id number] [address] [place] [address], [place] [address] Sep, [facility] [address] [id number] [address] [place] [address], [place] [address] Sep, [facility] [address] [id number] [address] [place] [address], [place] [address] Sep, [facility] [address] [id number] [address] [place] [address], [place] [address] Jul, [facility] [address] [id number] [address] [place] [address], [place] [address] Jul, [facility] [address] [id number] [address] [place] [address], [place] [address] Jul, [facility] [address] [id number] [address] [place] [address], [place] [address] Jul, [facility] [address] [id number] [address] [place] [address], [place] [address] Jul, [facility] [address] [id number] [address] [place] [address], [place] [address] Jul, [facility] [address] [id number] [address] [place] [address], [place] [address] Jul, [facility] [address] [id number] [facility] [place] [address] Jul, [facility] [address] [id number] [address] [place] [address], [place] [address] Jul, [facility] [address] [id number] [address] [place] [address], [place] [id number] Jul, [facility] [address] [id number] [address] [place] [address], [place] [address] Jul, [facility] [address] [id number] [address] [place] [address], [place] [address] Jul, [facility] [address] [id number] [address] [place] [address], [place] [address] Jun, [facility] [address] [id number] [address] [place] [address], [place] [address] Jun, [facility] [address] [id number] [address] [place] [address], [place] [address] Jun, [facility] [address] [id number] [address] [place] [address], [place] [address] Jun, [facility] [address] [id number] [address] [place] [address], [place] [address] Jun, [facility] [address] [id number] [address] [place] [address], [place] [address] Jun, [facility] [address] [id number] [address] [place] [address], [place] [address] Jun, [facility] [address] [id number] [address] [place] [address], [place] [address] Jun, [facility] [address] [id number] [address] [place] [address], [place] [address] May, [facility] [address] [id number] [address] [place] [address], [place] [address] May, [facility] [address] [id number] [address] [place] [address], [place] [address] May, [facility] [address] [id number] [address] [place] [address], [place] [address] May, [facility] [address] [id number] [address] [place] [address], [place] [address] May, [facility] [address] [id number] [address] [place] [address], [place] [address] May, [facility] [address] [id number] [address] [place] [address], [place] [address] May, [facility] [address] [id number] [address] [place] [address], [place] [address] May, [facility] [address] [id number] [address] [place] [address], [place] [address] Apr, [facility] [address] [id number] [address] [place] [address], [place] [address] Apr, [facility] [address] [id number] [address] [place] [address], [place] [address] Apr, [facility] [address] [id number] [address] [place] [address], [place] [address] Apr, [facility] [address] [id number] [address] [place] [address], [place] [address] Mar, [facility] [address] [id number] [address] [place] [address], [place] [address] Mar, [facility] [address] [id number] [address] [place] [address], [place] [address] Mar, [facility] [address] [id number] [address] [place] [address], [place] [address] Feb, [facility] [address] [id number] [address] [place] [address], [place] [address] Feb, [facility] [address] [id number] [address] [place] [address] Feb, [facility] [address] [id number] [address] [place] [address], [place] [address] Feb, [facility] [address] [id number] [address] [place] [address], [place] [address] Feb, [facility] [address] [id number] [address] [place] [address], [place] [address] Feb, [facility] [address] [id number] [address] [place] [address], [place] [address] Jan, [facility] [address] [id number] [address] [place] [address], [place] [address] Jan, [facility] [address] [id number] [address] [place] [address], [place] [address] Jan, [facility] [address] [id number] [address] [place] [address], [place] [address] Jan, [facility] [address] [id number] [address] [place] [address], [place] [address] Jan, [facility] [address] [id number] [address] [place] [address], [place] [address] Jan, [facility] [address] [id number] [address] [place] [address], [place] [address] Jan, [facility] [address] [id number] [address] [place] [address], [place] [address] 25 Dec, 2012 [facility] [address] [id number] [address] [place] [address] 16 Dec, 2012 [facility] [address] [id number] [address] [place] [address], [place] [address] 10 Dec, 2012 [facility] [address] [id number] [address] [place] [address], [place] [address] 05 Dec, 2012 [facility] [address] [id number] [address] [place] [address], [place] [address] Nov, [facility] [address] [id number] [address] [place] [address], [place] [address] Nov, [facility] [address] [id number] [address] [place] [address], [place] [address] Nov, [facility] [address] [id number] [address] [place] [address], [place] [address] Nov, [facility] [address] [id number] [address] [place] [address], [place] [address] Nov, [facility] [address] [id number] [address] [place] [address], [place] [address] Nov, [facility] [address] [id number] [address] [place] [address], [place] [address] Nov, [facility] [address] [id number] [address] [place] [address], [place] [address] Oct, [facility] [address] [id number] [address] [place] [address], [place] [address] Oct, [facility] [address] [id number] [address] [place] [address], [place] [address] Oct, [facility] [address] [id number] [address] [place] [address], [place] [address] Oct, [facility] [address] [id number] [address] [place] [address], [place] [address] Oct, [facility] [address] [id number] [address] [place] [address], [place] [address] Oct, [facility] [address] [id number] [address] [place] [address], [place] [address] Oct, [facility] [address] [id number] [address] [place] [address], [place] [address] Oct, [facility] [address] [id number] [address] [place] [address], [place] [address] Sep, [facility] [id number] [id number] 30 Aug, 2012 [facility] [address] [id number] [address] [place] [address], [place] [address] August, [facility] [address] [id number] [address] [place] [address], [place] [address] Jul, [facility] [address] [id number] [address] [place] [address], [place] [address] Jul, [facility] [address] [id number] [address] [place] [address], [place] [address] Jul, [facility] [address] [id number] [address] [place] [address], [place] [address] Jul, [facility] [address] [id number] [address] [place] [address], [place] [address] Jul, [facility] [address] [id number] [address] [place] [address], [place] [address] Jul, [facility] [address] [id number] [address] [place] [address], [place] [address] Jul, [facility] [address] [id number] [address] [place] [address], [place] [address] Jun, [facility] [address] [id number] [address] [place] [address], [place] [address] Jun, [facility] [address] [id number] [address] [place] [address] Jun, [facility] [address] [id number] [address] [place] [address] Jun, [facility] [address] [id number] [address] [place] [address], [place] [address] Jun, [facility] [address] [id number] [address] [place] [address] May, [facility] [address] [id number] [address] [place] [address] May, [facility] [address] [id number] [address] [place] [address], [place] [address] 04 May, 2012 [facility] [address] [id number] [address] [place] [address], [place] [address] 15 Apr, 2012 [facility] [address] [id number] [address] [place] [address], [place] [address] 14 Apr, 2012 [facility] [address] [id number] [address] [place] [address], [place] [address] Apr, [facility] [address] [id number] [address] [place] [address], [place] [address] Mar, [facility] [address] [id number] [address] [place] [address], [place] [address] Mar, [facility] [address] [id number] [address] [place] [address], [place] [address] Mar, [facility] [address] [id number] [address] [place] [address], [place] [address] Mar, [facility] [address] [id number] [address] [place] [address], [place] [address] Mar, [facility] [address] [id number] [address] [place] [address], [place] [address] Mar, [facility] [address] [id number] [address] [place] [address], [place] [address] Feb, [facility] [address] [id number] [address] [place] [address], [place] [address] Feb, [facility] [address] [id number] [address] [place] [address], [place] [address] Jan, [facility] [address] [id number] [address] [place] [address], [place] [address] Jan, [facility] [address] [id number] [address] [place] [address], [place] [address] Dec, [facility] [address] [id number] [address] [place] [address], [place] [address] Nov, [facility] [address] [id number] [address] [place] [address], [place] [address] Nov, [facility] [address] [id number] [address] [place] [address], [place] [address] Nov, [facility] [address] [id number] [address] [place] [address], [place] [address] Nov, [facility] [address] [id number] [address] [place] [address], [place] [address] Oct, [facility] [address] [id number] [address] [place] [address], [place] [address] Oct, [facility] [address] [id number] [address] [place] [address], [place] [address] Oct, [facility] [address] [id number] [address] [place] [address], [place] [address] Sep, [facility] [address] [id number] [address] [place] [address], [place] [address] Sep, [facility] [address] [id number] [address] [place] [address], [place] [address] Sep, [facility] [address] [id number] [address] [place] [address], [place] [address] August, [facility] [address] [id number] [address] [place] [address], [place] [address] August, [facility] [address] [id number] [address] [place] [address], [place] [address] Jul, [facility] [address] [id number] [address] [place] [address], [place] [address] 24 Jul, 2011 [facility] [address] [id number] [address] [place] [address], [place] [address] Jul, [facility] [address] [id number] [address] [place] [address], [place] [address] Jul, [facility] [address] [id number] [address] [place] [address], [place] [address] 14 Jun, 2011 [facility] [address] [id number] [address] [place] [address], [place] [address] May, [facility] [address] [id number] [address] [place] [address], [place] [address] Apr, [facility] [address] [id number] [address] [place] [address], [place] [address] Apr, [facility] [address] [id number] [address] [place] [address], [place] [address] Apr, [facility] [address] [id number] [address] [place] [address], [place] [address] Apr, [facility] [address] [id number] [address] [place] [address], [place] [address] Apr, [facility] [address] [id number] [address] [place] [address], [place] [address] Apr, [facility] [address] [id number] [address] [place] [address], [place] [address] Mar, [facility] [address] [id number] [address] [place] [address], [place] [address] Mar, [facility] [address] [id number] [address] [place] [address], [place] [address] Feb, [facility] [address] [id number] [address] [place] [address], [place] [address] 18 Feb, 2011 [facility] [address] [id number] [address] [place] [address], [place] [address] 17 Feb, 2011 [facility] [address] [id number] [address] [place] [address], [place] [address] 09 Feb, 2011 [facility] [address] [id number] [address] [place] [address], [place] [address] 20 Jan, 2011 [facility] [address] [id number] [address] [place] [address], [place] [address] 18 Jan, 2011 [facility] [address] [id number] [address] [place] [address], [place] [address] 18 Jan, 2011 [facility] [address] [id number] [address] [place] [address], [place] [address] 18 Jan, 2011 [facility] [address] [id number] [address] [place] [address], [place] [address] 17 Nov, 2010 [facility] [address] [id number] [address] [place] [address], [place] [address] Mar, [facility] [address] [id number] [address] [place] [address], [place] [address] Mar, [facility] [address] [id number] [address] [place] [address], [place] [address] Feb, [facility] [address] [id number] [address] [place] [address], [place] [address] Feb, [facility] [address] [id number] [address] [place] [address], [place] [address] Jan, [facility] [address] [id number] [address] [place] [address], [place] [address] Jan, [facility] [address] [id number] [address] [place] [address], [place] [address] Sep, [facility] [address] [id number] [address] [place] [address], [place] [address] May, [facility] [address] [id number] [address] [place] [address], [place] [address] Apr, [facility] [address] [id number] [address] [place] [address], [place] [address] Mar, [facility] [address] [id number] [address] [place] [address], [place] [address] 15 Feb, 2009 [facility] [address] [id number] [address] [place] [address], [place] [address] 10 Feb, 2009 [facility] [address] [id number] [address] [place] [address] Feb, [facility] [address] [facility] [id number] [address] [place] [address] Jan, [facility] [address] [facility] [id number] [address] [place] [address] Jan, [facility] [address] [facility] [id number] [address] [place] [address] Jan, [facility] [address] [facility] [id number] [address] [place] [id number] Jan, [facility] [address] [facility] [id number] [address] [place] [id number] August, IMMUNIZATIONS No Known Immunizations SOCIAL HISTORY Never Assessed REASON FOR VISIT Refill request PLAN OF CARE VITAL SIGNS MEDICATIONS Medication Instructions Dosage Frequency Start Date End Date Duration S tatus GlyBURIDE 2.5 MG Orally 2 times a day 0.5 tablet 12h 31 Active RESULTS No Results PROCEDURES No [...] age 6 Hospitalization History surgery Hospitalization History [facility], inne akbar treatment few times for BH
--- OUTSIDE RECORDS SUMMARY | 2019-09-29 11:04 | XMS REPORT ---
Author Author Cameron RICHARDS Organization [facility] Address [address] [place] [address] Phone Unavailable Care Team Providers Care Client Renewal Specialist Name Role Phone DEVORAH RICHARDS Unavailable Unavailable PROBLEMS Type Condition ICD9-CM Code LSD66-WM Code Onset Dates Condition S tatus SNOMED Code Problem Essential hypertension I10 Active 30933005 Problem Diabetes E11.9 Active 47147286 Problem Depression F32.9 Active 95713033 Problem Gastroesophageal reflux disease without esophagitis K21.9 Active 235367840 Problem Reactive airway disease, mild intermittent, uncomplicated J45.20 Active 452715937 Problem Intermittent explosive disorder in adult F63.81 Active 37872627 Problem Bipolar disorder, in partial remission, most rec ent episode manic F31.73 Active 69029656 Problem Mild intellectual disability F70 A ctive 91296885 Problem Bipolar disorder, unspecified F31.9 Active 55216248 Problem 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 Active 67598946 Problem Reactive airway disease, unspecified asthma justin rity, uncomplicated J45.909 Active 322342116903 Problem Hypertensive retinopathy of both eyes H35.033 Active 0970113 Problem Type 2 diabetes mellitus with complication E11.8 Active 95150268 Problem Adjustment disorder, unspecified type F43.20 Active 98815239 Problem Intermittent explosive disorder F63.81 Active 31966678 Problem Open-angle glaucoma of both eyes, unspecified glaucoma stage, unspecified open-angle glaucoma type H40.10X0 Acti ve 05895338 Problem Obstructive sleep apnea G47.33 Active 70157251 ALLERGIES No Known Allergies ENCOUNTERS Encounter Location Date Diagnosis [facility], [place] [address] [facility] [id number] [address] [place] [address] Oct, [facility], [place] [address] [facility] [id number] [address] [place] [address] Sep, [facility] [place] [address] [facility] [id number] [address] [place] [address] Sep, [facility] [address] [id number] [address] [place] [id number] Jul, Dental examination Z01.20 [facility], [place] [address] [id number] [address] [place] [address] May, Mild intellectual disability F70 [facility], [place] [address] [id number] [address] [place] [address] 07 May, 2017 Mild intellectual disability F70 ; High risk medication use Z79.899 ; Intermittent explosive disorder in adult F63.81 and Bipolar disorder, unspecified F31.9 [facility], [place] [address] [id number] [address] [place] [address] 05 May, 2017 [facility] [place] [address] [facility] [id number] [address] [place] [address] May, [facility] [place] [address] [facility] [id number] [address] [place] [address] Apr, Type 2 diabetes mellitus wit h complication E11.8 ; Mild intellectual disability F70 ; Gastroesophageal reflux disease without esophagitis K21.9 ; Reactive airway disease, mild intermittent, uncomplicated J45.20 and Tobacco abuse Z72.0 [facility] [place] [address] [facility] [id number] [address] [place] [address] Apr, High risk medication use Z79 .899 ; Mild intellectual disability F70 ; Intermittent explosive disorder in adult F63.81 and Bipolar disorder, unspecified F31.9 [facility] [address] [id number] [address] [place] [id number] Mar, Encounter for dental exam an d cleaning w/o abnormal findings Z01.20 [facility] [address] [id number] [address] [place] [id number] Mar, Dental examination Z01.20 [facility], [place] [address] [id number] [address] [place] [address] Jan, [facility], [place] [address] [id number] [address] [place] [id number] 11 Jan, 2017 [facility], [place] [address] [id number] [address] [place] [id number] 10 Jan, 2017 Mild intellectual disability F70 ; Bipolar disorder, unspecified F31.9 and Intermittent explosive disorder in adult F63.81 [facility], [place] [address] [id number] [address] [place] [address] 02 Jan, 2017 Diabetes E11.9 [facility] [address] [id number] [address] [place] [address] [id number] 13 Dec, 2016 Encounter for dental examina tion and cleaning without abnormal findings Z01.20 [facility], [place] [address] [id number] [address] [place] [phone] 12 Dec, 2016 Bipolar disorder, unspecifie d F31.9 ; Intermittent explosive disorder in adult F63.81 and Mild intellectual disability F70 [facility], [place] [address] [id number] [address] [place] [address] Nov, Diabetes E11.9 [facility], [place] [address] [id number] [address] [place] [phone] Nov, [facility], [place] [address] [id number] [address] [place] [address] Nov, Diabetes E11.9 and Colon can cer screening Z12.[id number] [place] [address] [id number] Sep, Dental examination Z01.20 [facility] [address] [id number] [address] [place] [address] [id number] Sep, Encounter for dental examina tion and cleaning without abnormal findings Z01.20 [facility], [place] [address] [id number] [address] [place] [phone] 13 Sep, 2016 Bipolar disorder, unspecifie d F31.9 [facility], [place] [address] [id number] [address] [place] [phone] 12 Sep, 2016 Bipolar disorder, unspecifie d F31.9 [facility], [place] [address] [id number] [address] [place] [phone] Jul, [facility], [place] [address] [id number] [address] [place] [address] Jul, Type 2 diabetes mellitus wit h complication E11.8 [facility] [address] [id number] [address] [place] [address] [id number] 15 Jun, 2016 Encounter for dental examina tion and cleaning without abnormal findings Z01.[address] [facility] [address] [id number] [id number] 15 Jun, 2016 Dental examination Z01.20 [facility], [place] [address] [id number] [address] [place] [phone] 18 Apr, 2016 Sports physical Z02.5 [facility], [place] [address] [id number] [address] [place] [phone] 14 Mar, 2016 Bipolar disorder, in partial remission, most recent episode manic F31.73 and Intermittent explosive disorder in adult F63.81 [facility], [place] [address] [id number] [address] [place] [phone] 08 Mar, 2016 [facility] [place] [address] [id number] [address] [place] [phone] 06 Mar, 2016 Diabetes E11.9 [facility] [address] [id number] [address] [place] [address] [id number] Feb, Encounter for dental examina tion and cleaning without abnormal findings Z01.20 [facility], [place] [address] [id number] [address] [place] [phone] 22 Dec, 2015 Nocturnal hypoxemia G47.34 a nd Encounter for immunization Z23 [facility], [place] [address] [id number] [address] [place] [phone] 15 Dec, 2015 [facility], [place] [address] [id number] [address] [place] [phone] 12 Dec, 2015 [facility], [place] [address] [id number] [address] [place] [phone] Dec, Bipolar disorder, unspecifie d F31.9 [facility] [address] [id number] [address] [place] [address] [id number] 13 Oct, 2015 Encounter for dental examina tion and cleaning without abnormal findings Z01.20 [facility] [id number] [id number] 13 Oct, 2015 Dental examination Z01.20 [facility], [place] [address] [facility] [id number] [address] [place] [phone] 07 Oct, 2015 Diabetes E11.9 [facility], [place] [address] [facility] [id number] [address] [place] [phone] 05 Oct, 2015 Diabetes E11.9 ; Reactive ai rway disease, mild intermittent, uncomplicated J45.20 and Tobacco abuse Z72.0 [place] [id number] [place] [id number] [address] [place] [address] Sep, Bipolar disorder, unspecifie d F31.9 and Depression F32.9 [facility], [place] [address] [facility] [id number] [address] [place] [phone] Sep, [facility], [place] [address] [phone] August, Tinea pedis of both feet B35 .3 and DM w/o complication type II, uncontrolled E11.65 [facility], [place] [address] [place] [id number] [address] [place] [phone] Jul, [facility], [place] [address] [facility] [id number] [address] [place] [address] Jul, [facility] [place] [address] [place] [id number] [address] [place] [id number] Jul, Obstructive sleep apnea G47. 33 [facility], [place] [address] [facility] [id number] [address] [place] [phone] Jun, Diabetes E11.9 [facility] [place] [address] [place] [id number] [address] [place] [phone] Jun, [facility], [place] [address] [address] Jun, [place] [address] [address] Jun, Bipolar disorder, unspecifie d F31.9 and Mental retardation F79 [place] [address] [address] Apr, [place] [address] [address] Feb, Diabetes E11.9 ; Encounter f or immunization Z23 ; Cough R05 and Nicotine abuse Z72.0 [place] [address] [address] Jan, Bipolar disorder, unspecifie d F31.9 and Diabetes mellitus without mention of complication, type II or unspecified type, uncontrolled 250.02 [place] [address] [address] Jan, [place] [address] [address] Dec, Reactive airway disease 493. 90 and Enuresis 788.30 [place] [address] [address] Dec, [place] [address] [address] Nov, [place] [address] [address] Nov, [place] [address] [address] Nov, Annual physical exam V70.0 ; Urinary incontinence 788.30 ; Diabetes 250.00 and Hypertension 401.9 [place] [address] [address] Oct, Diabetes mellitus without me ntion of complication, type II or unspecified type, uncontrolled 250.02 [facility] [place] [address] [id number] [address] [place] [id number] Oct, Diabetes mellitus without me ntion of complication, type II or unspecified type, uncontrolled 250.02 [facility] [place] [address] [id number] [address] [place] [phone] Oct, Diabetes mellitus without me ntion of complication, type II or unspecified type, uncontrolled 250.02 [facility] [place] [address] [id number] [address] [place] [phone] Oct, [facility], [place] [address] [id number] [address] [place] [phone] Oct, [facility] [place] [address] [id number] [address] [place] [phone] Oct, Bipolar disorder, unspecifie d 296.80 [facility] [address] [id number] [address] [place] [address] [id number] Sep, Dental examination V72.2 [facility], [place] [address] [id number] [address] [place] [phone] August, [facility] [address] [id number] [address] [place] [address] [id number] August, Dental examination V72.2 [facility] [place] [address] [id number] [address] [place] [phone] August, [facility] [place] [address] [id number] [address] [place] [phone] Jul, [facility] [place] [address] [id number] [address] [place] [id number] Jul, [facility] [place] [address] [id number] [address] [place] [phone] Jun, [facility] [place] [address] [id number] [address] [place] [id number] Jun, [facility] [address] [id number] [address] [place] [address], [place] [address] 17 Jun, 2014 [facility] [address] [id number] [address] [place] [address], [place] [address] 17 Jun, 2014 [facility] [address] [id number] [address] [place] [address], [place] [address] 23 May, 2014 [facility] [address] [id number] [address] [place] [address], [place] [address] 23 May, 2014 [facility] [address] [id number] [address] [place] [address], [place] [address] 16 May, 2014 [facility] [address] [id number] [address] [place] [address], [place] [address] 16 May, 2014 [facility] [address] [id number] [address] [place] [address], [place] [address] 16 May, 2014 [facility] [address] [id number] [address] [place] [address], [place] [address] 16 May, 2014 [facility] [address] [id number] [address] [place] [address], [place] [address] 16 May, 2014 [facility] [address] [id number] [address] [place] [address], [place] [address] 16 May, 2014 [facility] [address] [id number] [address] [place] [address], [place] [address] 16 May, 2014 [facility] [address] [id number] [address] [place] [address], [place] [address] 16 May, 2014 [facility] [address] [id number] [address] [place] [address], [place] [address] 16 May, 2014 [facility] [address] [id number] [address] [place] [address], [place] [address] 16 May, 2014 [facility] [address] [id number] [address] [place] [address], [place] [address] 16 May, 2014 [facility] [address] [id number] [address] [place] [address], [place] [address] May, [facility] [address] [id number] [address] [place] [address], [place] [address] May, [facility] [address] [id number] [address] [place] [address], [place] [address] Apr, [facility] [address] [id number] [address] [place] [address], [place] [address] Apr, [facility] [address] [id number] [address] [place] [address], [place] [address] Apr, [facility] [address] [id number] [address] [place] [address], [place] [address] Apr, [facility] [address] [id number] [address] [place] [address], [place] [address] Apr, [facility] [address] [id number] [address] [place] [address], [place] [address] Apr, [facility] [address] [id number] [address] [place] [address], [place] [address] Apr, [facility] [address] [id number] [address] [place] [address], [place] [address] Apr, [facility] [address] [id number] [address] [place] [address], [place] [address] Apr, [facility] [address] [id number] [address] [place] [address], [place] [address] Apr, [facility] [address] [id number] [address] [place] [address], [place] [address] Apr, [facility] [address] [id number] [address] [place] [address], [place] [address] Apr, [facility] [address] [id number] [address] [place] [address], [place] [address] Mar, [facility] [address] [id number] [address] [place] [address], [place] [address] Mar, [facility] [address] [id number] [address] [place] [address], [place] [address] Mar, [facility] [address] [id number] [address] [place] [address], [place] [address] Mar, [facility] [address] [id number] [address] [place] [address], [place] [address] Mar, [facility] [address] [id number] [address] [place] [address], [place] [address] Mar, [facility] [address] [id number] [address] [place] [address], [place] [address] Feb, [facility] [address] [id number] [address] [place] [address], [place] [address] Feb, [facility] [address] [id number] [address] [place] [address], [place] [address] Feb, [facility] [address] [id number] [address] [place] [address], [place] [address] Feb, [facility] [address] [id number] [address] [place] [address], [place] [address] 14 Jan, 2014 [facility] [address] [id number] [address] [place] [address], [place] [address] 14 Jan, 2014 [facility] [address] [id number] [address] [place] [address], [place] [address] 14 Jan, 2014 [facility] [address] [id number] [address] [place] [address], [place] [address] 14 Jan, 2014 [facility] [address] [id number] [address] [place] [address], [place] [address] 22 Dec, 2013 [facility] [address] [id number] [address] [place] [address], [place] [address] 22 Dec, 2013 [facility] [address] [id number] [address] [place] [address], [place] [address] 15 Dec, 2013 [facility] [address] [id number] [address] [place] [address], [place] [address] Dec, [facility] [address] [id number] [address] [place] [address], [place] [address] Nov, [facility] [address] [id number] [address] [place] [address], [place] [address] Nov, [facility] [address] [id number] [address] [place] [address], [place] [address] Nov, [facility] [address] [id number] [address] [place] [address], [place] [address] Nov, [facility] [address] [id number] [address] [place] [address], [place] [address] Nov, [facility] [address] [id number] [address] [place] [address], [place] [address] Nov, [facility] [address] [id number] [address] [place] [address], [place] [address] Nov, [facility] [address] [id number] [address] [place] [address], [place] [address] Oct, [facility] [address] [id number] [address] [place] [address], [place] [address] Oct, [facility] [address] [id number] [address] [place] [address], [place] [address] Oct, [facility] [address] [id number] [address] [place] [address], [place] [address] Oct, [facility] [address] [id number] [address] [place] [address], [place] [address] Oct, [facility] [address] [id number] [address] [place] [address], [place] [address] Oct, [facility] [address] [id number] [address] [place] [address], [place] [address] Oct, [facility] [address] [id number] [address] [place] [address], [place] [address] Sep, [facility] [address] [id number] [address] [place] [address] 17 Sep, 2013 [facility] [address] [id number] [address] [place] [address] 13 Sep, 2013 [facility] [address] [id number] [address] [place] [address], [place] [address] 04 Sep, 2013 [facility] [address] [id number] [address] [place] [address], [place] [address] Sep, [facility] [address] [id number] [address] [place] [address], [place] [address] 24 Jul, 2013 [facility] [address] [id number] [address] [place] [address], [place] [address] Jul, [facility] [address] [id number] [address] [place] [address], [place] [address] Jul, [facility] [address] [id number] [address] [place] [address], [place] [address] Jul, [facility] [address] [id number] [address] [place] [address], [place] [address] Jul, [facility] [address] [id number] [address] [place] [address], [place] [address] Jul, [facility] [address] [id number] [address] [place] [address], [place] [address] Jul, [facility] [address] [id number] [address] [place] [address], [place] [address] Jul, [facility] [address] [id number] [address] [place] [address], [place] [address] Jul, [facility] [address] [id number] [address] [place] [address], [place] [address] Jul, [facility] [address] [id number] [address] [place] [address], [place] [address] Jul, [facility] [address] [id number] [address] [place] [address], [place] [address] Jul, [facility] [address] [id number] [address] [place] [address] Jun, [facility] [address] [id number] [address] [place] [address] Jun, [facility] [address] [id number] [address] [place] [address] Jun, [facility] [address] [id number] [address] [place] [address], [place] [address] Jun, [facility] [address] [id number] [address] [place] [address], [place] [address] Jun, [facility] [address] [id number] [address] [place] [address], [place] [address] Jun, [facility] [address] [id number] [address] [place] [address], [place] [address] Jun, [facility] [address] [id number] [address] [place] [address], [place] [address] Jun, [facility] [address] [id number] [address] [place] [address], [place] [address] May, [facility] [address] [id number] [address] [place] [address], [place] [address] May, [facility] [address] [id number] [address] [place] [address], [place] [address] May, [facility] [address] [id number] [address] [place] [address], [place] [address] May, [facility] [address] [id number] [address] [place] [address], [place] [address] May, [facility] [address] [id number] [address] [place] [address], [place] [address] May, [facility] [address] [id number] [address] [place] [address], [place] [address] 18 May, 2013 [facility] [address] [id number] [address] [place] [address], [place] [address] May, [facility] [address] [id number] [address] [place] [address], [place] [address] Apr, [facility] [address] [id number] [address] [place] [address], [place] [address] Apr, [facility] [address] [id number] [address] [place] [address], [place] [address] Apr, [facility] [address] [id number] [address] [place] [address], [place] [address] Apr, [facility] [address] [id number] [address] [place] [address], [place] [address] Mar, [facility] [address] [id number] [address] [place] [address], [place] [address] Mar, [facility] [address] [id number] [address] [place] [address], [place] [address] Mar, [facility] [address] [id number] [address] [place] [address], [place] [address] Feb, [facility] [address] [id number] [address] [place] [address], [place] [address] Feb, [facility] [address] [id number] [address] [place] [address], [place] [address] Feb, [facility] [address] [id number] [address] [place] [address], [place] [address] Feb, [facility] [address] [id number] [address] [place] [address], [place] [address] Feb, [facility] [address] [id number] [address] [place] [address], [place] [address] Feb, [facility] [address] [id number] [address] [place] [address], [place] [address] Jan, [facility] [address] [id number] [address] [place] [address], [place] [address] Jan, [facility] [address] [id number] [address] [place] [address], [place] [address] Jan, [facility] [address] [id number] [address] [place] [address], [place] [address] Jan, [facility] [address] [id number] [address] [place] [address], [place] [address] Jan, [facility] [address] [id number] [address] [place] [address], [place] [address] Jan, [facility] [address] [id number] [address] [place] [address], [place] [address] Jan, [facility] [address] [id number] [address] [place] [address], [place] [address] Dec, [facility] [address] [id number] [address] [place] [address], [place] [address] 16 Dec, 2012 [facility] [address] [id number] [address] [place] [address], [place] [address] Dec, [facility] [address] [id number] [address] [place] [address], [place] [address] 05 Dec, 2012 [facility] [address] [id number] [address] [place] [address], [place] [address] Nov, [facility] [address] [id number] [address] [place] [address], [place] [address] Nov, [facility] [address] [id number] [address] [place] [address], [place] [address] Nov, [facility] [address] [id number] [address] [place] [address], [place] [address] Nov, [facility] [address] [id number] [address] [place] [address], [place] [address] Nov, [facility] [address] [id number] [address] [place] [address], [place] [address] Nov, [facility] [address] [id number] [address] [place] [address], [place] [address] Nov, [facility] [address] [id number] [address] [place] [address], [place] [address] Oct, [facility] [address] [id number] [address] [place] [address], [place] [address] Oct, [facility] [address] [id number] [address] [place] [address], [place] [address] Oct, [facility] [address] [id number] [address] [place] [address], [place] [address] Oct, [facility] [address] [id number] [address] [place] [address], [place] [address] Oct, [facility] [address] [id number] [address] [place] [address], [place] [address] Oct, [facility] [address] [id number] [address] [place] [address], [place] [address] Oct, [facility] [address] [id number] [address] [place] [address], [place] [address] Oct, [facility] [address] [id number] [address] [place] [address], [place] [address] Sep, [facility] [address] [facility] [id number] [id number] August, [facility] [address] [id number] [address] [place] [address], [place] [address] August, [facility] [address] [id number] [address] [place] [address], [place] [address] Jul, [facility] [address] [id number] [address] [place] [address], [place] [address] Jul, [facility] [address] [id number] [address] [place] [address], [place] [address] Jul, [facility] [address] [id number] [address] [place] [address], [place] [address] Jul, [facility] [address] [id number] [address] [place] [address], [place] [address] 18 Jul, 2012 [facility] [address] [id number] [address] [place] [address], [place] [address] 17 Jul, 2012 [facility] [address] [id number] [address] [place] [address], [place] [address] 16 Jul, 2012 [facility] [address] [id number] [address] [place] [address], [place] [address] 21 Jun, 2012 [facility] [address] [id number] [address] [place] [address], [place] [address] 18 Jun, 2012 [facility] [address] [id number] [address] [place] [address], [place] [address] 11 Jun, 2012 [facility] [address] [id number] [address] [place] [address], [place] [address] 04 Jun, 2012 [facility] [address] [id number] [address] [place] [address], [place] [address] 04 Jun, 2012 [facility] [address] [id number] [address] [place] [address], [place] [address] May, [facility] [address] [id number] [address] [place] [address], [place] [address] 18 May, 2012 [facility] [address] [id number] [address] [place] [address], [place] [address] 04 May, 2012 [facility] [address] [id number] [address] [place] [address], [place] [address] 15 Apr, 2012 [facility] [address] [id number] [address] [place] [address], [place] [address] 14 Apr, 2012 [facility] [address] [id number] [address] [place] [address], [place] [address] 07 Apr, 2012 [facility] [address] [id number] [address] [place] [address], [place] [address] 31 Mar, 2012 [facility] [address] [id number] [address] [place] [address] [place] [address] 31 Mar, 2012 [facility] [address] [id number] [address] [place] [address], [place] [address] Mar, [facility] [address] [id number] [address] [place] [address], [place] [address] Mar, [facility] [address] [id number] [address] [place] [address], [place] [address] Mar, [facility] [address] [id number] [address] [place] [address], [place] [address] Mar, [facility] [address] [id number] [address] [place] [address], [place] [address] Feb, [facility] [address] [id number] [address] [place] [address], [place] [address] Feb, [facility] [address] [id number] [address] [place] [address], [place] [address] Jan, [facility] [address] [id number] [address] [place] [address], [place] [address] Jan, [facility] [address] [id number] [address] [place] [address], [place] [address] Dec, [facility] [address] [id number] [address] [place] [address], [place] [address] Nov, [facility] [address] [id number] [address] [place] [address], [place] [address] Nov, [facility] [address] [id number] [address] [place] [address], [place] [address] Nov, [facility] [address] [id number] [address] [place] [address], [place] [address] Nov, [facility] [address] [id number] [address] [place] [address], [place] [address] Oct, [facility] [address] [id number] [address] [place] [address], [place] [address] Oct, [facility] [address] [id number] [address] [place] [address], [place] [address] Oct, [facility] [address] [id number] [address] [place] [address], [place] [address] 15 Sep, 2011 [facility] [address] [id number] [address] [place] [address], [place] [address] 14 Sep, 2011 [facility] [address] [id number] [address] [place] [address], [place] [address] Sep, [facility] [address] [id number] [address] [place] [address], [place] [address] August, [facility] [address] [id number] [address] [place] [address], [place] [address] August, [facility] [address] [id number] [address] [place] [address], [place] [address] Jul, [facility] [address] [id number] [address] [place] [address], [place] [address] 24 Jul, 2011 [facility] [address] [id number] [address] [place] [address], [place] [address] Jul, [facility] [address] [id number] [address] [place] [address], [place] [address] Jul, [facility] [address] [id number] [address] [place] [address], [place] [address] Jun, [facility] [address] [id number] [address] [place] [address], [place] [address] May, [facility] [address] [id number] [address] [place] [address], [place] [address] Apr, [facility] [address] [id number] [address] [place] [address], [place] [address] Apr, [facility] [address] [id number] [address] [place] [address], [place] [address] Apr, [facility] [address] [id number] [address] [place] [address], [place] [address] Apr, [facility] [address] [id number] [address] [place] [address], [place] [address] Apr, [facility] [address] [id number] [address] [place] [address], [place] [address] Apr, [facility] [address] [id number] [address] [place] [address], [place] [address] Mar, [facility] [address] [id number] [address] [place] [address], [place] [address] Mar, [facility] [address] [id number] [address] [place] [address], [place] [address] Feb, [facility] [address] [id number] [address] [place] [address], [place] [address] Feb, [facility] [address] [id number] [address] [place] [address], [place] [address] Feb, [facility] [address] [id number] [address] [place] [address], [place] [address] Feb, [facility] [address] [id number] [address] [place] [address], [place] [address] Jan, [facility] [address] [id number] [address] [place] [address], [place] [address] Jan, [facility] [address] [id number] [address] [place] [address], [place] [address] Jan, [facility] [address] [id number] [address] [place] [address] Jan, [facility] [address] [id number] [address] [place] [address], [place] [address] Nov, [facility] [address] [id number] [address] [place] [address], [place] [address] Mar, [facility] [address] [id number] [address] [place] [address], [place] [address] Mar, [facility] [address] [id number] [address] [place] [address] 30 Feb, 2010 [facility] [address] [id number] [address] [place] [address], [place] [address] 15 Feb, 2010 [facility] [address] [id number] [address] [place] [address], [place] [address] 19 Jan, 2010 [facility] [address] [id number] [address] [place] [address] 19 Jan, 2010 [facility] [address] [id number] [address] [place] [address], [place] [address] 15 Sep, 2009 [facility] [address] [id number] [address] [place] [address], [place] [address] 16 May, 2009 [facility] [address] [id number] [address] [place] [address], [place] [address] Apr, [facility] [address] [id number] [address] [place] [address], [place] [address] Mar, [facility] [address] [id number] [address] [place] [address] 15 Feb, 2009 [facility] [address] [id number] [address] [place] [address] Feb, [facility] [address] [id number] [address] [place] [address] 10 Feb, 2009 [facility] [address] [id number] [address] [place] [address] 22 Jan, 2009 [facility] [address] [id number] [address] [place] [address] 13 Jan, 2009 [facility] [address] [id number] [address] [place] [address] 13 Jan, 2009 [facility] [address] [id number] [address] [place] [address] Jan, [facility] [address] [id number] [address] [place] [address] August, IMMUNIZATIONS No Known Immunizations SOCIAL HISTORY Never Assessed REASON FOR VISIT ADULT OUTREACH [facility] PLAN OF CARE Activity Details Follow Up WE WILL CALL/3 MOS Reason:#2 8 DO/ON SITE RECALL VITAL SIGNS MEDICATIONS Medication Instructions Dosage Frequency Start Date End Date Duration S tatus Tamsulosin HCl 0.4 MG TAKE TWO CAPSULES ORALLY DAILY 30 MINUTES AFTER THE SAME MEAL EACH DAY 31 Active Singulair 10 mg Orally Once a day at hs and take Zyrtec in AM 1 tablet in the evening Oct, 31 Active Toviaz 8 MG Orally Once a day 1 tablet 24h A ctive Metoprolol Tartrate 25 MG Orally Twice a day 1 tablet with food 12h 31 Active Depakote ER 250 MG Orally in the morning 1 tablet Active Cetirizine HCl 10 MG TAKE 1 TABLET ORALLY DAILY 31 Active Actos 15 MG take 1 tablet (15 mg) by oral route once daily 31 Active GNP Natural Fiber 0.52 GM Orally Once a day 3 capsules 24h 31 Active Ventolin HFA 108 (90 Base) MCG/ACT Inhalation every 4 hrs 2 puffs a s needed 4h Active Simvastatin 20 MG Orally Once a day 1 tablet at bedtime 24h 31 Active desmopressin 0.2 mg 3 Tablet by Oral route 1 time per day qHS Jul, 30 days Active Albuterol Sulfate 2.5 mg /3 mL (0.083 %) 1 Each by Inhalation route 4 times per day for cough and wheeze PRN for wheezing or cough Dec, 4 Active Diovan HCT 80-12.5 MG Orally Once a day 1 tablet 24h 31 Active GlyBURIDE 2.5 MG Orally 2 times a day 0.5 tablet 12h 31 Active Depakote ER 500 MG Orally at bedtime once a day 1 tablet 24h Active Seroquel 400 MG Orally Once a day at bedtime 1 tablet 30 days Active Omeprazole 20 MG Orally 2 times a day 1 capsule 12h 30 Active TRUEtest Test - test blood sugar 12h Nov, Active Folic Acid 1 MG take 0.5 tablet by Oral route 1 time per day 31 Active RESULTS No Results PROCEDURES Procedure Date Ordered Result Body Site PROPHYLAXIS - ADULT Jan 02, 2017 TOPICAL FLUORIDE VARNISH Jan 02, 2017 INSTRUCTIONS MEDICATIONS ADMINISTERED No Known Medications [...] age 6 Hospitalization History surgery Hospitalization History [facility] treatment few times for BH
--- OUTSIDE RECORDS SUMMARY | 2019-09-29 11:04 | XMS REPORT ---
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 Info Not Available Non Drug Allergy Problems Problem Type Condition Code Onset Dates Condition Statu s Assessment Diabetes E11.9 Active Problem Essential hypertension I10 Activ e Problem Reactive airway disease, unspecified ast hma severity, uncomplicated J45.909 Active Problem Mild mental retardation F70 Acti ve Problem Adjustment disorder, unspecified type F43.20 Active Problem Depression F32.9 Active Problem Type 2 diabetes mellitus with complication E11.8 Active Problem Obstructive sleep apnea G47.33 Acti ve Problem 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 Active Problem Intermittent explosive disorder F63.81 Active Assessment Nicotine abuse Z72.0 Active Assessment Cough R05 Active Assessment Encounter for immunization Z23 A ctive Medications Medication Code System Code Instructions Start Date End Date Status Dosage Cetirizine HCl [facility] [address]-02 10 MG Orally Once a day 1 tablet as needed Ventolin HFA [facility] [address]-17 90 mcg/actuation Jan 11, 2014 inhale 2 puff by Inhalation route as needed 1 time per day Q hs and PRN Albuterol Sulfate [facility] [address]-67 2.5 mg /3 mL (0.083 %) Dec 1 Each by Inhalation route 4 times per day for cough and wheeze PRN for wheezing or cough Depakote ER [facility] [address]-02 500 MG Orally once a day qAM 2 tablets Seroquel [facility] [address]-32 100 MG Orally Once a day 1 tablet Simvastatin [facility] 15304423215 20 MG 1 by Ora l route 1 time per day Actos [facility] 97317431438 15 MG take 1 table t (15 mg) by oral route once daily Folic Acid [facility] 79575633196 1 MG take 0.5 tablet by Oral route 1 time per day Test strips NDC 0 not defined Singulair [facility] [address]-24 10 MG Orally Once a day Jan 18, 2015 1 tablet in the evening Seroquel [facility] [address]-21 300 MG Orally Once a day 1 tablet at bedtime GlyBURIDE [facility] 87682473111 2.5 MG Orally 2 times a day 0.5 tablet GNP Natural Fiber [facility] 86789468043 0.52 GM TAKE 3 CAPSULES ORALLY DAILY [5PM] Omeprazole [facility] 63209921277 20 MG Orally 2 times a day 1 capsule Diovan HCT [facility] 18037723771 80-12.5 MG Orally Once a day 1 tablet Pulmicort Flexhaler [facility] [address]-89 90 MCG/ACT I nhalation Twice a day sample given Jan 18, 2015 2 puff desmopressin [facility] 0 0.2 mg July 23, 2013 3 T ablet by Oral route 1 time per day qHS Abilify [facility] [address]-38 5 MG Orally Once a day Jan 28, 2015 1 tablet Toviaz [facility] [address]-53 8 MG Orally Once a day 1 tablet Flomax [facility] 62318098248 0.4 MG Orally Once a day May 18 6 2 capsule 30 minutes after the same meal each day Metoprolol Succinate ER [facility] 09575051987 25 MG Orally Once a day 1 tablet Procedures Procedure Coding System Code Date GLYCATED HEMOGLOBIN TEST CPT-4 76903 Mar 01, 2015 Office Visit, Est Pt., Level 3 CPT-4 11657 N ov 2014 MEASURE BLOOD OXYGEN LEVEL CPT-4 00582 Feb 202014 SINGLE IMMUNIZATION ADMIN CPT-4 65744 Feb FLUARIX QUAD (3 & UP)-GSK-2014 CPT-4 64169 N ov 2014 Vital Signs Date/Time: Mar 01, 2015 Temperature 97.5 F Weight 215.5 lbs Height 65 in Oximetry 95 % Blood Pressure Diastolic 80 mmHg Blood Pressure Systolic 104 mmHg Cardiac Monitoring Heart Rate 82 bpm BMI 35.86 Index Results Name Result Date Reference Range Unit Abnormali ty Flag A1C (IN HOUSE) Immunizations Vaccine Administration Date FLUARIX QUAD (3 & UP)-GSK-2014Mar 01, 2015 Summary Purpose [employer] Submission
--- OUTSIDE RECORDS SUMMARY | 2019-09-29 11:04 | XMS REPORT ---
Author Author Cameron ALANIZ Organization [employer] Address Unknown Phone Unavailable Care Team Providers Care [employer] Driver Name Role Phone JEET ALANIZ CP Unavailable Allergies No Known Allergies Problems Problem Type Condition ICD-9 Code Onset Dates Condition Statu s Problem Hypertension 401.9 Active Problem Routine general medical examination at [facility] V70.0 Active Problem Diabetes 250.00 Active Problem Obstructive sleep apnea (adult) (pediatric) 327.23 Active Problem Unspecified gastritis and ga stroduodenitis without mention of hemorrhage 535.50 Active Problem Mononeuritis of unspecified site 355.9 Active Medications No Known Medications Results No Known Results Summary Purpose [employer] Submission
--- OUTSIDE RECORDS SUMMARY | 2019-09-29 11:05 | XMS REPORT ---
Author Author Cameron RICHARDS Organization [facility] Address [address] [place] [address] Phone Unavailable Care Team Providers Care Director Of Medical Review Name Role Phone DEVORAH RICHARDS Unavailable Unavailable PROBLEMS Type Condition ICD9-CM Code ROD30-QT Code Onset Dates Condition S tatus SNOMED Code Problem Essential hypertension I10 Active 74784318 Problem Diabetes E11.9 Active 14661826 Problem Depression F32.9 Active 42947756 Problem Gastroesophageal reflux disease without esophagitis K21.9 Active 867373628 Problem Reactive airway disease, mild intermittent, uncomplicated J45.20 Active 694180254 Problem Intermittent explosive disorder in adult F63.81 Active 22913724 Problem Bipolar disorder, in partial remission, most rec ent episode manic F31.73 Active 86029248 Problem Mild intellectual disability F70 A ctive 37633762 Problem Bipolar disorder, unspecified F31.9 Active 38571686 Problem 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 Active 97798971 Problem Reactive airway disease, unspecified asthma justin rity, uncomplicated J45.909 Active 778736411903 Problem Hypertensive retinopathy of both eyes H35.033 Active 9058829 Problem Type 2 diabetes mellitus with complication E11.8 Active 84754819 Problem Adjustment disorder, unspecified type F43.20 Active 96614787 Problem Intermittent explosive disorder F63.81 Active 24450438 Problem Open-angle glaucoma of both eyes, unspecified glaucoma stage, unspecified open-angle glaucoma type H40.10X0 Acti ve 46510252 Problem Obstructive sleep apnea G47.33 Active 06168142 ALLERGIES No Known Allergies ENCOUNTERS Encounter Location Date Diagnosis [facility] [address] [facility] [id number] [address] [place] [address] Sep, [facility] [address] [facility] [id number] [address] [place] [address] Jul, [facility] [address] [facility] [id number] [address] [place] [address] May, Mild intellectual disability F70 [facility] [address] [id number] [address] [place] [address] May, Mild intellectual disability F70 ; High risk medication use Z79.899 ; Intermittent explosive disorder in adult F63.81 and Bipolar disorder, unspecified F31.9 [facility] [address] [facility] [id number] [address] [place] [address] May, [facility] [address] [facility] [id number] [address] [place] [address] May, [facility] [address] [facility] [id number] [address] [place] [address] Apr, Type 2 diabetes mellitus wit h complication E11.8 ; Mild intellectual disability F70 ; Gastroesophageal reflux disease without esophagitis K21.9 ; Reactive airway disease, mild intermittent, uncomplicated J45.20 and Tobacco abuse Z72.0 [facility] [address] [facility] [id number] [address] [place] [address] Apr, High risk medication use Z79 .899 ; Mild intellectual disability F70 ; Intermittent explosive disorder in adult F63.81 and Bipolar disorder, unspecified F31.9 [facility] [address] [place] [id number] [address] [place] [address] [id number] Mar, Encounter for dental exam an d cleaning w/o abnormal findings Z01.20 [facility] [address] [id number] [address] [place] [id number] Mar, Dental examination Z01.20 [facility] [address] [id number] [address] [place] [address] Jan, [facility] [address] [id number] [address] [place] [address] Jan, [facility] [address] [facility] [id number] [address] [place] [address] Jan, Mild intellectual disability F70 ; Bipolar disorder, unspecified F31.9 and Intermittent explosive disorder in adult F63.81 [facility] [address] [id number] [address] [place] [address] 02 Jan, 2017 Diabetes E11.9 [facility] [address] [id number] [address] [place] [address] [id number] 13 Dec, 2016 Encounter for dental examina tion and cleaning without abnormal findings Z01.20 [facility] [address] [id number] [address] [place] [address] 12 Dec, 2016 Bipolar disorder, unspecifie d F31.9 ; Intermittent explosive disorder in adult F63.81 and Mild intellectual disability F70 [facility] [address] [id number] [address] [place] [address] Nov, Diabetes E11.9 [facility] [address] [id number] [address] [place] [address] Nov, [facility] [address] [id number] [address] [place] [address] Nov, Diabetes E11.9 and Colon can cer screening Z12.[id number] [place] [address] [id number] Sep, Dental examination Z01.20 [facility] [address] [id number] [address] [place] [address] [id number] 21 Sep, 2016 Encounter for dental examina tion and cleaning without abnormal findings Z01.20 [facility] [address] [id number] [address] [place] [address] 13 Sep, 2016 Bipolar disorder, unspecifie d F31.9 [facility] [address] [id number] [address] [place] [address] Sep, Bipolar disorder, unspecifie d F31.9 [facility] [address] [id number] [address] [place] [address] Jul, [facility] [address] [id number] [address] [place] [address] Jul, Type 2 diabetes mellitus wit h complication E11.8 [facility] [address] [id number] [address] [place] [address] [id number] 15 Jun, 2016 Encounter for dental examina tion and cleaning without abnormal findings Z01.20 [facility] [address] [id number] [place] [id number] 15 Jun, 2016 Dental examination Z01.20 [facility] [address] [id number] [address] [place] [address] 18 Apr, 2016 Sports physical Z02.5 [facility] [address] [id number] [address] [place] [id number] 14 Mar, 2016 Bipolar disorder, in partial remission, most recent episode manic F31.73 and Intermittent explosive disorder in adult F63.81 [facility] [address] [id number] [address] [place] [address] 08 Mar, 2016 [facility] [address] [id number] [address] [place] [address] 06 Mar, 2016 Diabetes E11.9 [facility] [address] [id number] [address] [place] [address] [id number] Feb, Encounter for dental examina tion and cleaning without abnormal findings Z01.20 [facility] [address] [id number] [address] [place] [phone] 22 Dec, 2015 Nocturnal hypoxemia G47.34 a nd Encounter for immunization Z23 [facility] [address] [id number] [address] [place] [address] Dec, [facility] [address] [id number] [address] [place] [address] Dec, [facility] [address] [id number] [address] [place] [address] Dec, Bipolar disorder, unspecifie d F31.9 [facility] [address] [id number] [address] [place] [address] [id number] Oct, Encounter for dental examina tion and cleaning without abnormal findings Z01.20 [facility] [place] [id number] [facility] [id number] [place] [address] [id number] 13 Oct, 2016 Dental examination Z01.20 [facility] [address] [facility] [id number] [address] [place] [phone] 07 Oct, 2015 Diabetes E11.9 [facility] [address] [facility] [id number] [address] [place] [phone] 05 Oct, 2015 Diabetes E11.9 ; Reactive ai rway disease, mild intermittent, uncomplicated J45.20 and Tobacco abuse Z72.0 [facility] [address] [facility] [id number] [address] [place] [address] Sep, Bipolar disorder, unspecifie d F31.9 and Depression F32.9 [place] [address] [facility] [id number] [address] [place] [address] Sep, [place] [address] [place] [id number] [address] [place] [address] August, Tinea pedis of both feet B35 .3 and DM w/o complication type II, uncontrolled E11.65 [place] [id number] [facility] [id number] [address] [place] [address] Jul, [facility] [address] [facility] [id number] [address] [place] [phone] Jul, [place] [address] [facility] [id number] [address] [place] [address] Jul, Obstructive sleep apnea G47. 33 [facility] [address] [facility] [id number] [address] [place] [address] Jun, Diabetes E11.9 [facility] [address] [facility] [id number] [address] [place] [address] Jun, [facility] [address] [facility] [id number] [address] [place] [phone] Jun, [facility] [address] [facility] [id number] [address] [place] [address] Jun, Bipolar disorder, unspecifie d F31.9 and Mental retardation F79 [place] [address] [address] Apr, [place] [address] [address] Feb, Diabetes E11.9 ; Encounter f or immunization Z23 ; Cough R05 and Nicotine abuse Z72.0 [place] [address] [address] Jan, Bipolar disorder, unspecifie d F31.9 and Diabetes mellitus without mention of complication, type II or unspecified type, uncontrolled 250.02 [place] [address] [address] Jan, [place] [address] [address] Dec, Reactive airway disease 493. 90 and Enuresis 788.30 [place] [address] [address] Dec, [place] [address] [address] Nov, [place] [address] [address] Nov, [place] [address] [address] Nov, Annual physical exam V70.0 ; Urinary incontinence 788.30 ; Diabetes 250.00 and Hypertension 401.9 [place] [address] [address] Oct, Diabetes mellitus without me ntion of complication, type II or unspecified type, uncontrolled 250.02 [place] [address] [address] Oct, Diabetes mellitus without me ntion of complication, type II or unspecified type, uncontrolled 250.02 [facility] [address] [id number] [address] [place] [address] Oct, Diabetes mellitus without me ntion of complication, type II or unspecified type, uncontrolled 250.02 [facility] [address] [id number] [address] [place] [id number] 08 Oct, 2014 [facility] [address] [id number] [address] [place] [phone] Oct, [facility] [address] [id number] [address] [place] [phone] Oct, Bipolar disorder, unspecifie d 296.80 [facility] [address] [id number] [address] [place] [address] [id number] Sep, Dental examination V72.2 [facility] [address] [id number] [address] [place] [phone] August, [facility] [address] [id number] [address] [place] [address] [id number] August, Dental examination V72.2 [facility] [address] [id number] [address] [place] [phone] August, [facility] [address] [id number] [address] [place] [address] Jul, [facility] [address] [id number] [address] [place] [phone] Jul, [facility] [address] [id number] [address] [place] [address] Jun, [facility] [address] [id number] [address] [place] [phone] Jun, [facility] [address] [id number] [address] [place] [id number] Jun, [facility] [address] [id number] [address] [place] [address] Jun, [facility] [address] [id number] [address] [place] [address], [place] [address] 23 May, 2014 [facility] [address] [id number] [address] [place] [address], [place] [address] 23 May, 2014 [facility] [address] [id number] [address] [place] [address], [place] [address] 16 May, 2014 [facility] [address] [id number] [address] [place] [address], [place] [address] 16 May, 2014 [facility] [address] [id number] [address] [place] [address], [place] [address] 16 May, 2014 [facility] [address] [id number] [address] [place] [address], [place] [address] 16 May, 2014 [facility] [address] [id number] [address] [place] [address], [place] [address] 16 May, 2014 [facility] [address] [id number] [address] [place] [address], [place] [address] 16 May, 2014 [facility] [address] [id number] [address] [place] [address], [place] [address] 16 May, 2014 [facility] [address] [id number] [address] [place] [address], [place] [address] 16 May, 2014 [facility] [address] [id number] [address] [place] [address], [place] [address] 16 May, 2014 [facility] [address] [id number] [address] [place] [id number] 16 May, 2014 [facility] [address] [id number] [address] [place] [address], [place] [address] 16 May, 2014 [facility] [address] [id number] [address] [place] [address], [place] [address] 16 May, 2014 [facility] [address] [id number] [address] [place] [address], [place] [address] 16 May, 2014 [facility] [address] [id number] [address] [place] [address], [place] [address] Apr, [facility] [address] [id number] [address] [place] [address], [place] [address] Apr, [facility] [address] [id number] [address] [place] [address], [place] [address] Apr, [facility] [address] [id number] [address] [place] [address], [place] [address] Apr, [facility] [address] [id number] [address] [place] [address], [place] [address] Apr, [facility] [address] [id number] [address] [place] [address], [place] [address] Apr, [facility] [address] [id number] [address] [place] [address], [place] [address] Apr, [facility] [address] [id number] [address] [place] [address], [place] [address] Apr, [facility] [address] [id number] [address] [place] [address], [place] [address] Apr, [facility] [address] [id number] [address] [place] [address], [place] [address] Apr, [facility] [address] [id number] [address] [place] [address], [place] [address] Apr, [facility] [address] [id number] [address] [place] [address], [place] [address] Apr, [facility] [address] [id number] [address] [place] [address], [place] [address] Mar, [facility] [address] [id number] [address] [place] [address], [place] [address] Mar, [facility] [address] [id number] [address] [place] [address], [place] [address] Mar, [facility] [address] [id number] [address] [place] [address], [place] [address] Mar, [facility] [address] [id number] [address] [place] [address], [place] [address] 10 Mar, 2014 [facility] [address] [id number] [address] [place] [address], [place] [address] Mar, [facility] [address] [id number] [address] [place] [address], [place] [address] Feb, [facility] [address] [id number] [address] [place] [address], [place] [address] Feb, [facility] [address] [id number] [address] [place] [address], [place] [address] Feb, [facility] [address] [id number] [address] [place] [address], [place] [address] Feb, [facility] [address] [id number] [address] [place] [address], [place] [address] 14 Jan, 2014 [facility] [address] [id number] [address] [place] [address], [place] [address] 14 Jan, 2014 [facility] [address] [id number] [address] [place] [address], [place] [address] 14 Jan, 2014 [facility] [address] [id number] [address] [place] [address], [place] [address] 14 Jan, 2014 [facility] [address] [id number] [address] [place] [address], [place] [address] 22 Dec, 2013 [facility] [address] [id number] [address] [place] [address], [place] [address] 22 Dec, 2013 [facility] [address] [id number] [address] [place] [address], [place] [address] 15 Dec, 2013 [facility] [address] [id number] [address] [place] [address], [place] [address] 15 Dec, 2013 [facility] [address] [id number] [address] [place] [address], [place] [address] Nov, [facility] [address] [id number] [address] [place] [address], [place] [address] Nov, [facility] [address] [id number] [facility] [place] [address] Nov, [facility] [address] [id number] [address] [place] [address], [place] [address] Nov, [facility] [address] [id number] [address] [place] [address], [place] [address] Nov, [facility] [address] [id number] [address] [place] [address], [place] [address] Nov, [facility] [address] [id number] [address] [place] [address], [place] [address] Nov, [facility] [address] [id number] [address] [place] [address], [place] [address] Oct, [facility] [address] [id number] [address] [place] [address], [place] [address] Oct, [facility] [address] [id number] [address] [place] [address], [place] [address] Oct, [facility] [address] [id number] [address] [place] [address], [place] [address] Oct, [facility] [address] [id number] [address] [place] [address], [place] [address] Oct, [facility] [address] [id number] [address] [place] [address], [place] [address] Oct, [facility] [address] [id number] [address] [place] [address], [place] [address] Oct, [facility] [address] [id number] [address] [place] [address], [place] [address] Sep, [facility] [address] [id number] [address] [place] [address], [place] [address] Sep, [facility] [address] [id number] [address] [place] [address], [place] [address] Sep, [facility] [address] [id number] [address] [place] [address], [place] [address] 04 Sep, 2013 [facility] [place] [address] [id number] [address] [place] [address], [place] [address] Sep, [facility] [address] [id number] [address] [place] [address], [place] [address] Jul, [facility] [place] [address] [id number] [address] [place] [address], [place] [address] Jul, [facility] [address] [id number] [address] [place] [address], [place] [address] Jul, [facility] [address] [id number] [address] [place] [address], [place] [address] Jul, [facility] [address] [id number] [address] [place] [address], [place] [address] Jul, [facility] [place] [address] [id number] [address] [place] [address], [place] [address] Jul, [facility] [address] [id number] [address] [place] [address], [place] [address] Jul, [facility] [address] [id number] [address] [place] [address], [place] [address] Jul, [facility] [address] [id number] [address] [place] [address], [place] [address] Jul, [facility] [address] [id number] [address] [place] [address], [place] [address] Jul, [facility] [address] [id number] [address] [place] [address], [place] [address] Jul, [facility] [address] [id number] [address] [place] [address], [place] [address] Jul, [facility] [address] [id number] [address] [place] [address], [place] [address] Jun, [facility] [address] [id number] [address] [place] [address], [place] [address] Jun, [facility] [address] [id number] [address] [place] [address], [place] [address] Jun, [facility] [address] [id number] [address] [place] [address], [place] [address] Jun, [facility] [address] [id number] [address] [place] [address], [place] [address] Jun, [facility] [address] [id number] [address] [place] [address], [place] [address] Jun, [facility] [address] [id number] [address] [place] [address], [place] [address] Jun, [facility] [address] [id number] [address] [place] [address], [place] [address] Jun, [facility] [address] [id number] [address] [place] [address], [place] [address] May, [facility] [address] [id number] [address] [place] [address], [place] [address] May, [facility] [address] [id number] [address] [place] [address], [place] [address] May, [facility] [address] [id number] [address] [place] [address], [place] [address] May, [facility] [address] [id number] [address] [place] [address], [place] [address] May, [facility] [address] [id number] [address] [place] [address], [place] [address] May, [facility] [address] [id number] [address] [place] [address], [place] [address] May, [facility] [address] [id number] [address] [place] [address], [place] [address] May, [facility] [address] [id number] [address] [place] [address], [place] [address] Apr, [facility] [address] [id number] [address] [place] [address], [place] [address] Apr, [facility] [place] [address] [id number] [address] [place] [address], [place] [address] Apr, [facility] [address] [address] [id number] [address] [place] [address], [place] [address] Apr, [facility] [address] [id number] [address] [place] [address], [place] [address] Mar, [facility] [address] [id number] [address] [place] [address], [place] [address] Mar, [facility] [address] [id number] [address] [place] [address], [place] [address] Mar, [facility] [address] [id number] [address] [place] [address], [place] [address] Feb, [facility] [place] [address] [id number] [address] [place] [address], [place] [address] Feb, [facility] [place] [address] [id number] [address] [place] [address], [place] [address] Feb, [facility] [address] [id number] [address] [place] [address], [place] [address] Feb, [facility] [address] [id number] [address] [place] [address], [place] [address] Feb, [facility] [place] [address] [id number] [address] [place] [address], [place] [address] Feb, [facility] [place] [address] [id number] [address] [place] [address], [place] [address] Jan, [facility] [address] [id number] [address] [place] [address], [place] [address] Jan, [facility] [address] [id number] [address] [place] [address], [place] [address] Jan, [facility] [address] [id number] [address] [place] [address], [place] [address] Jan, [facility] [address] [id number] [address] [place] [address], [place] [address] Jan, [facility] [address] [id number] [address] [place] [address], [place] [address] Jan, [facility] [address] [id number] [address] [place] [address], [place] [address] Jan, [facility] [address] [id number] [address] [place] [address], [place] [address] Dec, [facility] [address] [id number] [address] [place] [address], [place] [address] 16 Dec, 2012 [facility] [address] [id number] [address] [place] [address], [place] [address] Dec, [facility] [address] [id number] [address] [place] [address], [place] [address] Dec, [facility] [address] [id number] [address] [place] [address], [place] [address] Nov, [facility] [address] [id number] [address] [place] [address], [place] [address] Nov, [facility] [address] [id number] [address] [place] [address], [place] [address] Nov, [facility] [address] [id number] [address] [place] [address], [place] [address] Nov, [facility] [address] [id number] [address] [place] [address], [place] [address] Nov, [facility] [address] [id number] [address] [place] [address], [place] [address] Nov, [facility] [address] [id number] [address] [place] [address], [place] [address] Nov, [facility] [address] [id number] [address] [place] [address], [place] [address] Oct, [facility] [address] [id number] [address] [place] [address] Oct, [facility] [place] [address] [id number] [address] [place] [address], [place] [address] Oct, [facility] [place] [address] [id number] [address] [place] [address], [place] [address] Oct, [facility] [place] [address] [id number] [address] [place] [address], [place] [address] Oct, [facility] [address] [id number] [address] [place] [address], [place] [address] Oct, [facility] [place] [address] [id number] [address] [place] [address], [place] [address] Oct, [facility] [place] [address] [id number] [address] [place] [address], [place] [address] Oct, [facility] [address] [id number] [address] [place] [address], [place] [address] Sep, [facility] [place] [id number] [facility] [id number] [place] [id number] August, [facility] [place] [address] [id number] [address] [place] [address], [place] [address] August, [facility] [address] [id number] [address] [place] [address], [place] [address] Jul, [facility] [place] [address] [id number] [address] [place] [address], [place] [address] 29 Jul, 2012 [facility] [place] [address] [id number] [address] [place] [address], [place] [address] Jul, [facility] [address] [id number] [address] [place] [address], [place] [address] Jul, [facility] [address] [id number] [address] [place] [address], [place] [address] 18 Jul, 2012 [facility] [place] [address] [id number] [address] [place] [address], [place] [address] 17 Jul, 2012 [facility] [address] [id number] [address] [place] [address], [place] [address] 16 Jul, 2012 [facility] [address] [id number] [address] [place] [address], [place] [address] 21 Jun, 2012 [facility] [address] [id number] [address] [place] [address], [place] [address] 18 Jun, 2012 [facility] [address] [id number] [address] [place] [address], [place] [address] 11 Jun, 2012 [facility] [address] [id number] [address] [place] [address], [place] [address] 04 Jun, 2012 [facility] [address] [id number] [address] [place] [address], [place] [address] 04 Jun, [address] [facility] [address] [id number] [address] [place] [address], [place] [address] 19 May, 2012 [facility] [address] [id number] [address] [place] [address], [place] [address] 18 May, 2012 [facility] [place] [address] [id number] [address] [place] [address], [place] [address] 04 May, 2012 [facility] [place] [address] [id number] [address] [place] [address], [place] [address] 15 Apr, 2012 [facility] [place] [address] [id number] [address] [place] [address], [place] [address] 14 Apr, 2012 [facility] [place] [address] [id number] [address] [place] [address], [place] [address] Apr, [facility] [address] [id number] [address] [place] [address], [place] [address] Mar, [facility] [address] [id number] [address] [place] [address], [place] [address] Mar, [facility] [address] [id number] [address] [place] [address], [place] [address] 13 Mar, 2012 [facility] [address] [id number] [address] [place] [address], [place] [address] Mar, [facility] [address] [id number] [address] [place] [address], [place] [address] Mar, [facility] [address] [id number] [address] [place] [address], [place] [address] Mar, [facility] [address] [id number] [address] [place] [address], [place] [address] Feb, [facility] [address] [id number] [address] [place] [address], [place] [address] Feb, [facility] [address] [id number] [address] [place] [address], [place] [address] Jan, [facility] [address] [id number] [address] [place] [address], [place] [address] Jan, [facility] [address] [id number] [address] [place] [address], [place] [address] Dec, [facility] [address] [id number] [address] [place] [address], [place] [address] Nov, [facility] [address] [id number] [address] [place] [address], [place] [address] Nov, [facility] [address] [id number] [address] [place] [address], [place] [address] Nov, [facility] [address] [id number] [address] [place] [address], [place] [address] Nov, [facility] [address] [id number] [address] [place] [address], [place] [address] Oct, [facility] [address] [id number] [address] [place] [address], [place] [address] Oct, [facility] [address] [id number] [address] [place] [address], [place] [address] Oct, [facility] [address] [id number] [address] [place] [address], [place] [address] Sep, [facility] [address] [id number] [address] [place] [address], [place] [address] 14 Sep, 2011 [facility] [place] [address] [id number] [address] [place] [address], [place] [address] Sep, [facility] [address] [id number] [address] [place] [address], [place] [address] August, [facility] [place] [address] [id number] [address] [place] [address], [place] [address] August, [facility] [address] [id number] [address] [place] [address], [place] [address] Jul, [facility] [place] [address] [id number] [address] [place] [address], [place] [address] Jul, [facility] [place] [address] [id number] [address] [place] [address], [place] [address] Jul, [facility] [place] [address] [id number] [address] [place] [address], [place] [address] Jul, [facility] [address] [id number] [address] [place] [address], [place] [address] Jun, [facility] [place] [address] [id number] [address] [place] [address], [place] [address] May, [facility] [address] [id number] [address] [place] [address], [place] [address] Apr, [facility] [place] [address] [id number] [address] [place] [address], [place] [address] Apr, [facility] [address] [id number] [address] [place] [address], [place] [address] Apr, [facility] [address] [id number] [address] [place] [address], [place] [address] Apr, [facility] [address] [id number] [address] [place] [address], [place] [address] Apr, [facility] [address] [id number] [address] [place] [address], [place] [address] Apr, [facility] [address] [id number] [address] [place] [address], [place] [address] Mar, [facility] [address] [id number] [address] [place] [address], [place] [address] Mar, [facility] [address] [id number] [address] [place] [address], [place] [address] Feb, [facility] [address] [id number] [address] [place] [address], [place] [address] Feb, [facility] [address] [id number] [address] [place] [address], [place] [address] Feb, [facility] [address] [id number] [address] [place] [address], [place] [address] Feb, [facility] [address] [id number] [address] [place] [address], [place] [address] Jan, [facility] [address] [id number] [address] [place] [address], [place] [address] Jan, [facility] [address] [id number] [address] [place] [address], [place] [address] Jan, [facility] [address] [id number] [address] [place] [address], [place] [address] Jan, [facility] [address] [id number] [address] [place] [address], [place] [address] Nov, [facility] [address] [id number] [address] [place] [address], [place] [address] Mar, [facility] [address] [id number] [address] [place] [address], [place] [address] Mar, [facility] [address] [id number] [address] [place] [address], [place] [address] Feb, [facility] [address] [id number] [address] [place] [address], [place] [address] 15 Feb, 2010 [facility] [address] [id number] [address] [place] [address] Jan, [facility] [address] [id number] [address] [place] [address] Jan, [facility] [address] [id number] [address] [place] [address] Sep, [facility] [address] [id number] [address] [place] [address] May, [facility] [address] [id number] [address] [place] [address] Apr, [facility] [address] [id number] [address] [place] [address] Mar, [facility] [address] [id number] [address] [place] [address] Feb, [facility] [address] [id number] [address] [place] [address] Feb, [facility] [address] [id number] [address] [place] [address] Feb, [facility] [address] [id number] [address] [place] [address] Jan, [facility] [address] [id number] [address] [place] [address] Jan, [facility] [address] [id number] [address] [place] [address] Jan, [facility] [address] [id number] [address] [place] [address] Jan, [facility] [address] [id number] [address] [place] [address] August, IMMUNIZATIONS No Known Immunizations SOCIAL HISTORY Never Assessed REASON FOR VISIT ADULT OUTREACH [facility] PLAN OF CARE Activity Details Follow Up 3 Months Reason:ON SITE RECA LL VITAL SIGNS MEDICATIONS Unknown Medications RESULTS No Results PROCEDURES Procedure Date Ordered Result Body Site PROPHYLAXIS - ADULT October 10, 2016 INSTRUCTIONS MEDICATIONS ADMINISTERED No [...] Hospitalization History [facility], [facility] treatment few times for BH
--- OUTSIDE RECORDS SUMMARY | 2019-09-29 11:05 | XMS REPORT ---
Author Author Cameron ALANIZ [facility] eClinicalWorks Address Unknown Phone Unavailable Care Team Providers Care Automobile Seat Cover Installer Name Role Phone JEET ALANIZ CP Unavailable Allergies, Adverse Reactions, Alerts Substance Reaction Event Type N.K.D.A. Info Not Available Non Drug Allergy Problems Problem Type Condition Code Onset Dates Condition Statu s Assessment Reactive airway disease 493.90 Acti ve Assessment Enuresis 788.30 Active Problem Diabetes 250.00 Active Problem Hypertension 401.9 Active Problem Reactive airway disease 493.90 Acti ve Problem Mononeuritis of unspecified site 355.9 Active Problem Obstructive sleep apnea (adult) (pediatric) 327.23 Active Problem Routine general medical examination at [facility] V70.0 Active Problem Unspecified gastritis and ga stroduodenitis without mention of hemorrhage 535.50 Active Medications Medication Code System Code Instructions Start Date End Date Status Dosage Diovan HCT [facility] 24837250182 80-12.5 MG Orally Once a day 1 tablet Simvastatin [facility] 65999695847 20 MG 1 by Ora l route 1 time per day Singulair [facility] 37934826975 10 MG Orally Once a day 1 tablet in the evening GlyBURIDE [facility] 21133168319 2.5 MG Orally 2 times a day 0.5 tablet Omeprazole [facility] 04923722325 20 MG Orally 2 times a day 1 capsule Seroquel [facility] 78506277677 100 MG 1 Tablet b y Oral route 1 time per day qAM Depakote ER [facility] [address]-85 500 MG Orally once a day qAM 2 tablets Cetirizine HCl [facility] [address]-74 10 MG Orally Once a day 1 tablet as needed Pulmicort Flexhaler [facility] [address]-57 90 MCG/ACT I nhalation Twice a day sample given Jan 18, 2015 2 puff Actos [facility] 38273078979 15 MG take 1 table t (15 mg) by oral route once daily Flomax [facility] 71443476801 0.4 MG Orally Once a day May 18 6 2 capsule 30 minutes after the same meal each day Seroquel [facility] [address]-16 300 MG Orally Once a day 1 tablet at bedtime Toviaz [facility] [address]-68 8 MG Orally Once a day 1 tablet Ventolin HFA [facility] [address]-20 90 mcg/actuation Jan 11, 2014 inhale 2 puff by Inhalation route as needed 1 time per day Q hs and PRN GNP Natural Fiber [facility] 85628374133 0.52 GM TAKE 3 CAPSULES ORALLY DAILY [5PM] Metoprolol Succinate ER [facility] 65252063177 25 MG Orally Once a day 1 tablet Albuterol Sulfate [facility] [address]-34 2.5 mg /3 mL (0.083 %) Dec 1 Each by Inhalation route 4 times per day for cough and wheeze PRN for wheezing or cough Metamucil [facility] [address]56[address] Jun 09, 2013 3 Cap mary by Oral route 1 time per day at 1700 hrs desmopressin [facility] 0 0.2 mg July 23, 2013 3 T ablet by Oral route 1 time per day qHS Singulair [facility] [address]-74 10 MG Orally Once a day Jan 18, 2015 1 tablet in the evening Proventil HFA [facility] 65996250001 108 (90 Base) MCG/ACT inhale 2 puff by Inhalation route as needed 1 time per day Q hs and PRN Folic Acid [facility] 46802811192 1 MG take 0.5 tablet by Oral route 1 time per day Procedures Procedure Coding System Code Date Office Visit, Est Pt., Level 3 CPT-4 92375 S ept 2014 MEASURE BLOOD OXYGEN LEVEL CPT-4 05698 Jan 18, 2015 Vital Signs Date/Time: Jan 18, 2015 Temperature 97.1 F Weight 218 lbs Height 65 in Oximetry 96 % Blood Pressure Diastolic 76 mmHg Blood Pressure Systolic 122 mmHg Cardiac Monitoring Heart Rate 96 bpm BMI 36.27 Index Results No Known Results Summary Purpose eClinicalWorks Submission
--- OUTSIDE RECORDS SUMMARY | 2019-09-29 11:05 | XMS REPORT ---
Author Author Cameron ALANIZ Organization [employer] Address Unknown Phone Unavailable Care Team Providers Care Outboard Motor Inspector Name Role Phone JEET ALANIZ CP Unavailable Allergies No Known Allergies Problems Problem Type Condition Code Onset Dates Condition Statu s Problem Essential hypertension I10 Activ e Problem [...] Active Problem Intermittent explosive disorder F63.81 Active Medications Medication Code System Code Instructions Start Date End Date Status Dosage Damienulair [facility] [address]-02 10 MG Orally Once a day Jan 18, 2015 1 tablet in the evening Results No Known Results Summary Purpose eClinicalWorks Submission
--- OUTSIDE RECORDS SUMMARY | 2019-09-29 11:05 | XMS REPORT ---
Author Author Cameron BURNETTE [facility] eClinicalWorks Address Unknown Phone Unavailable Care Team Providers Care Debate Director Name Role Phone CARLOS BURNETTE CP Unavailable Allergies No Known Allergies Problems Problem Type Condition Code Onset Dates Condition Statu s Problem Reactive airway disease, unspecified ast hma severity, uncomplicated J45.909 Active Problem Obstructive sleep apnea G47.33 Acti ve Problem Essential hypertension I10 Activ e Assessment Dental examination Z01.20 Active Problem Depression F32.9 Active Problem Mild mental retardation F70 Acti ve Problem Diabetes E11.9 Active Problem Intermittent explosive disorder F63.81 Active Problem Type 2 diabetes mellitus with complication E11.8 Active Problem Adjustment disorder, unspecified type F43.20 Active Problem 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 Active Medications No Known Medications Procedures Procedure Coding System Code Date INTRAORL-PERIAPICAL 1 FILM 35817 CPT-4 D0220 November 02, 2015 INTRAORL-PERIAPICAL EA ADD FILM CPT-4 D0230 November 02, 2015 COMP ORAL EVALUATION - NEW/EST PT CPT-4 D0150 November 02, 2015 BITEWING - SINGLE FILM CPT-4 D0270 November 02, 2015 INTRAORL-PERIAPICAL EA ADD FILM CPT-4 D0230 November 02, 2015 RESIN COMPOS - 3 SURFACES POSTERIOR CPT-4 D2393 November 02, 2015 INTRAORL-PERIAPICAL EA ADD FILM CPT-4 D0230 November 02, 2015 INTRAORL-PERIAPICAL EA ADD FILM CPT-4 D0230 November 02, 2015 INTRAORL-PERIAPICAL EA ADD FILM CPT-4 D0230 November 02, 2015 INTRAORL-PERIAPICAL EA ADD FILM CPT-4 D0230 November 02, 2015 Results No Known Results Summary Purpose eClinicalWorks Submission
--- OUTSIDE RECORDS SUMMARY | 2019-09-29 11:05 | XMS REPORT ---
Author Author Cameron ALANIZ Organization [facility] Address [address] [place] [address] Care Team Providers Care Commercial Real Estate Assistant Name Role Phone JEET ALANIZ Unavailable PROBLEMS Type Condition ICD9-CM Code [id number] Code Onset Dates Condition S tatus SNOMED Code Problem Essential hypertension I10 Active 83067571 Problem Type 2 diabetes mellitus with complication E11.8 Active 19081985 Problem Obstructive sleep apnea G47.33 Active 61316574 Problem Reactive airway disease, unspecified asthma justin rity, uncomplicated J45.909 Active 498819119847 Problem Diabetes E11.9 Active 00318679 Problem Depression F32.9 Active 56374373 Problem 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 Active 40438688 Problem Intermittent explosive disorder F63.81 Active 62140168 Problem Mild mental retardation F70 Active 40875396 Problem Adjustment disorder, unspecified type F43.20 Active 22278697 ALLERGIES Unknown Allergies SOCIAL HISTORY No smoking Hx information available PLAN OF CARE VITAL SIGNS MEDICATIONS Medication Instructions Dosage Frequency Start Date End Date Duration S tatus Test strips N/A test blood sugar 12h Active Lancets Ultra Thin 30G Misc USE TO TEST BLOOD GL UCOSE ONCE DAILY DIRECTED 31 Active RESULTS No Results PROCEDURES No Known procedures IMMUNIZATIONS No Known Immunizations
--- OUTSIDE RECORDS SUMMARY | 2019-09-29 11:05 | XMS REPORT ---
Author Author Cameron RICHARDS [facility] eClinicalWorks Address Unknown Phone Unavailable Care Team Providers Care Credit Collection Associate Name Role Phone DEVORAH RICHARDS CP Unavailable [...] Date End Date Status Dosage Depakote ER [facility] [address]-12 500 MG Orally in the morning Jan 02, 2016 1 tablet Depakote ER [facility] [address]-28 250 MG Orally in the morning Jan 02, 2016 1 tablet Abilify [facility] [address]-62 5 MG Orally Once a day 1 tablet Pulmicort Flexhaler [facility] [address]-75 90 MCG/ACT I nhalation Twice a day sample given Jan 18, 2015 2 puff Test strips [facility] 0 N/A 2 times a day t est blood sugar GNP Natural Fiber [facility] 09149589553 0.52 GM TAKE 3 CAPSULES ORALLY DAILY [5PM] Omeprazole [facility] 85077283227 20 MG Orally 2 times a day 1 capsule Simvastatin [facility] 52738144319 20 MG TAKE ONE TABLET ORALLY EVERY NIGHT AT BEDTIME Toviaz [facility] [address]-05 8 MG Orally Once a day 1 tablet Seroquel [facility] [address]-50 300 MG Orally at bedtime Once a day 1 tablet Cetirizine HCl [facility] 07878226720 10 MG TAKE 1 TABLET ORALLY DAILY Ventolin HFA [facility] [address]-51 90 mcg/actuation Jan 11, 2014 inhale 2 puff by Inhalation route as needed 1 time per day Q hs and PRN ZyrTEC NDC 0 10 mg by oral route Once a day 1 tablet desmopressin ND 0 0.2 mg July 23, 2013 3 T ablet by Oral route 1 time per day qHS Folic Acid [facility] 22421218182 1 MG take 0.5 tablet by Oral route 1 time per day Metoprolol Tartrate [facility] 09248461463 25 MG Orally Twice a day 1 tablet with food Tamsulosin HCl [facility] 20533142276 0.4 MG TAKE TWO CAPSULES ORALLY DAILY 30 MINUTES AFTER THE SAME MEAL EACH DAY GlyBURIDE [facility] 78346387947 2.5 MG Orally 2 times a day 0.5 tablet Singulair [facility] [address]-69 10 mg Orally Once a day at hs and take Zyrtec in AM October 25, 2015 1 tablet in the even ing Diovan HCT [facility] 40472745919 80-12.5 MG Orally Once a day 1 tablet Quetiapine Fumarate [facility] [address]-89 100 MG Orally in am Once a day 1 tablet Albuterol Sulfate [facility] [address]-75 2.5 mg /3 mL (0.083 %) Dec 1 Each by Inhalation route 4 times per day for cough and wheeze PRN for wheezing or cough Procedures Procedure Coding System Code Date TOPICAL FLUORIDE VARNISH CPT-4 D1206 Feb 23, 2016 PROPHYLAXIS - ADULT CPT-4 D1110 Feb 23, 2016 Results No Known Results Summary Purpose eClinicalWorks Submission
--- OUTSIDE RECORDS SUMMARY | 2019-09-29 11:05 | XMS REPORT ---
Author Author Cameron ALANIZ Organization [facility] Address [address] [place] [address] Care Team Providers Care Sales Support Specialist Name Role Phone JEET ALANIZ Unavailable PROBLEMS Type Condition ICD9-CM Code [id number] Code Onset Dates Condition S tatus SNOMED Code Problem Essential hypertension I10 Active 15871601 Problem Type 2 diabetes mellitus with complication E11.8 Active 17905668 Problem Obstructive sleep apnea G47.33 Active 77425025 Problem Reactive airway disease, unspecified asthma justin rity, uncomplicated J45.909 Active 692438914498 Problem Diabetes E11.9 Active 36381753 Problem Depression F32.9 Active 40716822 Problem 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 Active 72607591 Problem Intermittent explosive disorder F63.81 Active 51541827 Problem Mild mental retardation F70 Active 70571255 Problem Adjustment disorder, unspecified type F43.20 Active 71734017 ALLERGIES Unknown Allergies SOCIAL HISTORY No smoking [...]
--- OUTSIDE RECORDS SUMMARY | 2019-09-29 11:05 | XMS REPORT ---
Author Author Cameron ALANIZ Organization [employer] Address Unknown Phone Unavailable Care Team Providers Care Medical Concierge Name Role Phone JEET ALANIZ CP Unavailable Allergies No Known Allergies Problems Problem Type Condition Code Onset Dates Condition Statu s Problem Reactive airway disease, unspecified ast hma severity, uncomplicated J45.909 Active Problem Obstructive sleep apnea G47.33 Acti ve Problem Essential hypertension I10 Activ e Assessment Obstructive sleep apnea G47.33 Acti ve Problem Depression F32.9 Active Problem Mild mental [...]
--- OUTSIDE RECORDS SUMMARY | 2019-09-29 11:05 | XMS REPORT ---
Author Author LETA Cameronsheridan YI Organization [facility] Address [address] [place] [address] Care Team Providers Care Spout Worker Name Role Phone SAMANTHABELLE WHITTINGTONYLA Unavailable PROBLEMS Type Condition ICD9-CM Code MNV80-PY Code Onset Dates Condition S tatus SNOMED Code Problem Depression F32.9 Active 48700377 Problem Bipolar disorder, in partial remission, most rec ent episode manic F31.73 Active 31864922 Problem Diabetes E11.9 Active 89051767 Problem Neuropathy G62.9 Active 097144602 Problem Gastroesophageal reflux disease without esophagitis K21.9 Active 627742631 Problem Bipolar disorder, unspecified F31.9 Active 55281512 Problem Intermittent explosive disorder in adult F63.81 Active 17922894 Problem Reactive airway disease, mild intermittent, uncomplicated J45.20 Active 555644793 Problem Mild intellectual disability F70 A ctive 12340536 Problem Reactive airway disease, unspecified asthma justin rity, uncomplicated J45.909 Active 480762516862 Problem Adjustment disorder, unspecified type F43.20 Active 09862750 Problem 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 Active 46399422 Problem Obstructive sleep apnea G47.33 Active 63829157 Problem Essential hypertension I10 Active 62964925 Problem Open-angle glaucoma of both eyes, unspecified glaucoma stage, unspecified open-angle glaucoma type H40.10X0 Acti ve 32901175 Problem Type 2 diabetes mellitus with complication E11.8 Active 25177289 Problem Hypertensive retinopathy of both eyes H35.033 Active 8126371 Problem Intermittent explosive disorder F63.81 Active 52185625 ALLERGIES No Information ENCOUNTERS Encounter Location Date Diagnosis [facility] [address] [facility] [id number] [address] [place] [address] Oct, [facility] [address] [id number] [id number] Oct, [facility] [address] [facility] [id number] [address] [place] [phone] Oct, [facility] [address] [facility] [id number] [address] [place] [phone] Sep, Type 2 diabetes mellitus wit h complication E11.8 and Colon cancer screening Z12.11 [facility] [address] [facility] [id number] [address] [place] [address] Sep, Type 2 diabetes mellitus wit h complication E11.8 ; Colon cancer screening Z12.11 and Neuropathy G62.9 [facility] [address] [facility] [id number] [address] [place] [phone] August, Diabetes E11.9 [facility] [address] [facility] [id number] [address] [place] [address] [id number] Jul, Dental examination Z01.20 [facility] [address] [place] [id number] [address] [place] [id number] 27 May, 2017 Mild intellectual disability F70 [place] [address] [facility] [id number] [address] [place] [address] May, Mild intellectual disability F70 ; High risk medication use Z79.899 ; Intermittent explosive disorder in adult F63.81 and Bipolar disorder, unspecified F31.9 [facility] [address] [place] [id number] [address] [place] [address] May, [place] [address] [facility] [id number] [address] [place] [phone] May, [facility] [address] [facility] [id number] [address] [place] [address] Apr, Type 2 diabetes mellitus wit h complication E11.8 ; Mild intellectual disability F70 ; Gastroesophageal reflux disease without esophagitis K21.9 ; Reactive airway disease, mild intermittent, uncomplicated J45.20 and Tobacco abuse Z72.0 [place] [address] [facility] [id number] [address] [place] [phone] Apr, High risk medication use Z79 .899 ; Mild intellectual disability F70 ; Intermittent explosive disorder in adult F63.81 and Bipolar disorder, unspecified F31.9 [facility] [address] [id number] [address] [place] [address] [id number] Mar, Encounter for dental exam an d cleaning w/o abnormal findings Z01.20 [facility] [address] [id number] [address] [place] [address] [id number] Mar, Dental examination Z01.20 [facility] [address] [id number] [address] [place] [phone] 12 Jan, 2017 [facility] [address] [id number] [address] [place] [phone] Jan, [facility] [address] [id number] [address] [place] [phone] 10 Jan, 2017 Mild intellectual disability F70 ; Bipolar disorder, unspecified F31.9 and Intermittent explosive disorder in adult F63.81 [facility] [address] [id number] [address] [place] [phone] 02 Jan, 2017 Diabetes E11.9 [facility] [address] [id number] [address] [place] [address] [id number] 13 Dec, 2016 Encounter for dental examina tion and cleaning without abnormal findings Z01.20 [facility] [address] [id number] [address] [place] [phone] 12 Dec, 2016 Bipolar disorder, unspecifie d F31.9 ; Intermittent explosive disorder in adult F63.81 and Mild intellectual disability F70 [facility] [address] [id number] [address] [place] [phone] Nov, Diabetes E11.9 [facility] [address] [id number] [address] [place] [phone] Nov, [facility] [address] [id number] [address] [place] [phone] Nov, Diabetes E11.9 and Colon can cer screening Z12.[address] [place] [id number] [id number] [id number] 21 Sep, 2016 Dental examination Z01.20 [facility] [address] [id number] [address] [place] [address] [id number] 21 Sep, 2016 Encounter for dental examina tion and cleaning without abnormal findings Z01.20 [facility] [address] [id number] [address] [place] [phone] 13 Sep, 2016 Bipolar disorder, unspecifie d F31.9 [facility] [address] [id number] [address] [place] [phone] 12 Sep, 2016 Bipolar disorder, unspecifie d F31.9 [facility] [address] [facility] [id number] [address] [place] [phone] Jul, [facility] [address] [facility] [id number] [address] [place] [phone] Jul, Type 2 diabetes mellitus wit h complication E11.8 [facility] [address] [id number] [address] [place] [address] [id number] 15 Jun, 2016 Encounter for dental examina tion and cleaning without abnormal findings Z01.20 [facility] [address] [facility] [id number] [id number] 15 Jun, 2016 Dental examination Z01.20 [facility] [address] [facility] [id number] [address] [place] [phone] Apr, Sports physical Z02.5 [facility] [address] [facility] [id number] [address] [place] [phone] 14 Mar, 2016 Bipolar disorder, in partial remission, most recent episode manic F31.73 and Intermittent explosive disorder in adult F63.81 [facility] [address] [facility] [id number] [address] [place] [phone] 08 Mar, 2016 [facility] [address] [facility] [id number] [address] [place] [phone] Mar, Diabetes E11.9 [facility] [address] [place] [id number] [address] [place] [address] [id number] Feb, Encounter for dental examina tion and cleaning without abnormal findings Z01.20 [facility] [address] [id number] [address] [place] [phone] 22 Dec, 2015 Nocturnal hypoxemia G47.34 a nd Encounter for immunization Z23 [facility] [address] [id number] [address] [place] [phone] 15 Dec, 2015 [facility] [address] [id number] [address] [place] [phone] Dec, [place] [address] [facility] [id number] [address] [place] [phone] Dec, Bipolar disorder, unspecifie d F31.9 [facility] [address] [id number] [address] [place] [address] [id number] Oct, Encounter for dental examina tion and cleaning without abnormal findings Z01.[address] [place] [id number] [place] [address] [id number] Oct, Dental examination Z01.20 [facility] [address] [facility] [id number] [address] [place] [phone] Oct, Diabetes E11.9 [place] [address] [facility] [id number] [address] [place] [phone] Oct, Diabetes E11.9 ; Reactive ai rway disease, mild intermittent, uncomplicated J45.20 and Tobacco abuse Z72.0 [facility] [address] [facility] [id number] [address] [place] [phone] Sep, Bipolar disorder, unspecifie d F31.9 and Depression F32.9 [place] [address] [facility] [id number] [address] [place] [phone] Sep, [place] [address] [facility] [id number] [address] [place] [phone] August, Tinea pedis of both feet B35 .3 and DM w/o complication type II, uncontrolled E11.65 [place] [id number] [phone] Jul, [facility] [address] [phone] Jul, [place] [address] [phone] Jul, Obstructive sleep apnea G47. 33 [place] [address] [phone] Jun, Diabetes E11.9 [place] [address] [address] Jun, [place] [address] [address] Jun, [place] [address] [address] Jun, Bipolar disorder, unspecifie d F31.9 and Mental retardation F79 [place] [address] [phone] Apr, [place] [address] [id number] Feb, Diabetes E11.9 ; Encounter f or immunization Z23 ; Cough R05 and Nicotine abuse Z72.0 [place] [address] [address] Jan, Bipolar disorder, unspecifie d F31.9 and Diabetes mellitus without mention of complication, type II or unspecified type, uncontrolled 250.02 [place] [address] [address] Jan, [place] [address] [address] Dec, Reactive airway disease 493. 90 and Enuresis 788.30 [place] [address] [address] Dec, [facility] [address] [id number] [address] [place] [phone] Nov, [facility] [address] [facility] [id number] [address] [place] [phone] Nov, [facility] [address] [facility] [id number] [address] [place] [phone] Nov, Annual physical exam V70.0 ; Urinary incontinence 788.30 ; Diabetes 250.00 and Hypertension 401.9 [facility] [address] [id number] [address] [place] [phone] Oct, Diabetes mellitus without me ntion of complication, type II or unspecified type, uncontrolled 250.02 [facility] [address] [facility] [id number] [address] [place] [phone] Oct, Diabetes mellitus without me ntion of complication, type II or unspecified type, uncontrolled 250.02 [facility] [address] [facility] [id number] [address] [place] [phone] Oct, Diabetes mellitus without me ntion of complication, type II or unspecified type, uncontrolled 250.02 [facility] [address] [facility] [id number] [address] [place] [phone] Oct, [facility] [address] [facility] [id number] [address] [place] [phone] Oct, [facility] [address] [facility] [id number] [address] [place] [phone] Oct, Bipolar disorder, unspecifie d 296.80 [facility] [address] [id number] [address] [place] [address] [id number] Sep, Dental examination V72.2 [facility] [address] [id number] [address] [place] [phone] August, [facility] [address] [id number] [address] [place] [address] [id number] August, Dental examination V72.2 [facility] [address] [id number] [address] [place] [phone] August, [facility] [address] [id number] [address] [place] [phone] 14 Jul, 2014 [facility] [address] [id number] [address] [place] [phone] Jul, [facility] [address] [id number] [address] [place] [phone] 17 Jun, 2014 [facility] [address] [id number] [address] [place] [address], [place] [address] Jun, [facility] [address] [id number] [address] [place] [phone] Jun, [facility] [address] [id number] [address] [place] [phone] Jun, [facility] [address] [id number] [address] [place] [phone] May, [facility] [address] [id number] [address] [place] [phone] May, [facility] [address] [id number] [address] [place] [phone] 16 May, 2014 [facility] [address] [id number] [address] [place] [phone] 16 May, 2014 [facility] [address] [id number] [address] [place] [address] May, 2014 [facility] [address] [id number] [address] [place] [phone] May, 2014 [facility] [address] [id number] [address] [place] [phone] 16 May, 2014 [facility] [address] [id number] [address] [place] [phone] 16 May, 2014 [facility] [address] [id number] [address] [place] [address], [place] [address] 16 May, 2014 [facility] [address] [id number] [address] [place] [address], [place] [address] May, 2014 [facility] [address] [id number] [address] [place] [address], [place] [address] May, 2014 [facility] [address] [id number] [address] [place] [address], [place] [address] May, 2014 [facility] [address] [id number] [address] [place] [address], [place] [address] May, 2014 [facility] [address] [id number] [address] [place] [address], [place] [address] May, 2014 [facility] [address] [id number] [address] [place] [address], [place] [address] May, [facility] [address] [id number] [address] [place] [address], [place] [address] Apr, [facility] [address] [id number] [address] [place] [address], [place] [address] Apr, [facility] [address] [id number] [address] [place] [address], [place] [address] Apr, [facility] [address] [id number] [address] [place] [address], [place] [address] Apr, [facility] [address] [id number] [address] [place] [address], [place] [address] Apr, [facility] [address] [id number] [address] [place] [address], [place] [address] Apr, [facility] [address] [id number] [address] [place] [address], [place] [address] Apr, [facility] [address] [id number] [address] [place] [address], [place] [address] Apr, [facility] [address] [id number] [address] [place] [address], [place] [address] Apr, [facility] [address] [id number] [address] [place] [address], [place] [address] Apr, [facility] [address] [id number] [address] [place] [address], [place] [address] Apr, [facility] [address] [id number] [address] [place] [address], [place] [address] Apr, [facility] [address] [id number] [address] [place] [address], [place] [address] Mar, [facility] [address] [id number] [address] [place] [address], [place] [address] Mar, [facility] [address] [id number] [address] [place] [address], [place] [address] Mar, [facility] [address] [id number] [address] [place] [address], [place] [address] Mar, [facility] [address] [id number] [address] [place] [address], [place] [address] Mar, [facility] [address] [id number] [address] [place] [address], [place] [address] Mar, [facility] [address] [id number] [address] [place] [address], [place] [address] Feb, [facility] [address] [id number] [address] [place] [address], [place] [address] Feb, [facility] [address] [id number] [address] [place] [address], [place] [address] Feb, [facility] [address] [id number] [address] [place] [address], [place] [address] Feb, [facility] [address] [id number] [address] [place] [address], [place] [address] 14 Jan, 2014 [facility] [address] [id number] [address] [place] [address], [place] [address] 14 Jan, 2014 [facility] [address] [id number] [address] [place] [address], [place] [address] 14 Jan, 2014 [facility] [address] [id number] [address] [place] [address], [place] [address] 14 Jan, 2014 [facility] [address] [id number] [address] [place] [address], [place] [address] Dec, [facility] [address] [id number] [address] [place] [address], [place] [address] Dec, [facility] [address] [id number] [address] [place] [address], [place] [address] Dec, [facility] [address] [id number] [address] [place] [address], [place] [address] Dec, [facility] [address] [id number] [address] [place] [address], [place] [address] Nov, [facility] [address] [id number] [address] [place] [address], [place] [address] Nov, [facility] [address] [id number] [address] [place] [address], [place] [address] Nov, [facility] [address] [id number] [address] [place] [address], [place] [address] Nov, [facility] [address] [id number] [address] [place] [address], [place] [address] Nov, [facility] [address] [id number] [address] [place] [address], [place] [address] Nov, [facility] [address] [id number] [address] [place] [address], [place] [address] Nov, [facility] [address] [id number] [address] [place] [address], [place] [address] Oct, [facility] [address] [id number] [address] [place] [address], [place] [address] Oct, [facility] [address] [id number] [address] [place] [address], [place] [address] Oct, [facility] [address] [id number] [address] [place] [address], [place] [address] Oct, [facility] [address] [id number] [address] [place] [address], [place] [address] Oct, [facility] [address] [id number] [address] [place] [address], [place] [address] Oct, [facility] [address] [id number] [address] [place] [id number], [place] [address] Oct, [facility] [address] [id number] [address] [place] [address], [place] [address] Sep, [facility] [address] [id number] [address] [place] [address], [place] [address] Sep, [facility] [address] [id number] [address] [place] [address], [place] [address] Sep, [facility] [address] [id number] [address] [place] [address], [place] [address] Sep, [facility] [address] [id number] [address] [place] [address], [place] [address] Sep, [facility] [address] [id number] [address] [place] [address], [place] [address] Jul, [facility] [address] [id number] [address] [place] [address], [place] [address] Jul, [facility] [address] [id number] [address] [place] [address], [place] [address] Jul, [facility] [address] [id number] [address] [place] [address], [place] [address] Jul, [facility] [address] [id number] [address] [place] [address], [place] [address] Jul, [facility] [address] [id number] [address] [place] [address], [place] [address] Jul, [facility] [address] [id number] [address] [place] [address], [place] [address] Jul, [facility] [address] [id number] [address] [place] [address], [place] [address] Jul, [facility] [address] [id number] [address] [place] [address], [place] [address] Jul, [facility] [address] [id number] [address] [place] [address], [place] [address] Jul, [facility] [address] [id number] [address] [place] [address], [place] [address] Jul, [facility] [address] [id number] [address] [place] [address], [place] [address] Jul, [facility] [address] [id number] [address] [place] [address], [place] [address] Jun, [facility] [address] [id number] [address] [place] [address], [place] [address] Jun, [facility] [address] [id number] [address] [place] [address], [place] [address] Jun, [facility] [address] [id number] [address] [place] [address], [place] [address] Jun, [facility] [address] [id number] [address] [place] [address], [place] [address] Jun, [facility] [address] [id number] [address] [place] [address], [place] [address] Jun, [facility] [address] [id number] [address] [place] [address], [place] [address] Jun, [facility] [address] [id number] [address] [place] [address], [place] [address] Jun, [facility] [address] [id number] [address] [place] [address], [place] [address] May, [facility] [address] [id number] [address] [place] [address], [place] [address] May, [facility] [address] [id number] [address] [place] [address], [place] [address] May, [facility] [address] [id number] [address] [place] [address], [place] [address] May, [facility] [address] [id number] [address] [place] [address], [place] [address] May, [facility] [address] [id number] [address] [place] [address], [place] [address] May, [facility] [address] [id number] [address] [place] [address], [place] [address] May, [facility] [address] [id number] [address] [place] [address], [place] [address] May, [facility] [address] [id number] [address] [place] [address], [place] [address] Apr, [facility] [address] [id number] [address] [place] [address], [place] [address] Apr, [facility] [address] [id number] [address] [place] [address], [place] [address] Apr, [facility] [address] [id number] [address] [place] [address], [place] [address] Apr, [facility] [address] [id number] [address] [place] [address], [place] [address] Mar, [facility] [address] [id number] [address] [place] [address], [place] [address] Mar, [facility] [address] [id number] [address] [place] [address], [place] [address] Mar, [facility] [address] [id number] [address] [place] [address], [place] [address] Feb, [facility] [address] [id number] [address] [place] [address], [place] [address] Feb, [facility] [address] [id number] [address] [place] [address], [place] [address] Feb, [facility] [address] [id number] [address] [place] [address], [place] [address] Feb, [facility] [address] [id number] [address] [place] [address], [place] [address] Feb, [facility] [address] [id number] [address] [place] [address], [place] [address] Feb, [facility] [address] [id number] [address] [place] [address], [place] [address] Jan, [facility] [address] [id number] [address] [place] [address], [place] [address] Jan, [facility] [address] [id number] [address] [place] [address], [place] [address] Jan, [facility] [address] [id number] [address] [place] [address], [place] [address] Jan, [facility] [address] [id number] [address] [place] [address], [place] [address] Jan, [facility] [address] [id number] [address] [place] [address], [place] [address] Jan, [facility] [address] [id number] [address] [place] [address], [place] [address] Jan, [facility] [address] [id number] [address] [place] [address], [place] [address] 25 Dec, 2012 [facility] [address] [id number] [address] [place] [address], [place] [address] 16 Dec, 2012 [facility] [address] [id number] [address] [place] [address], [place] [address] 10 Dec, 2012 [facility] [address] [id number] [address] [place] [address], [place] [address] 05 Dec, 2012 [facility] [address] [id number] [address] [place] [address], [place] [address] Nov, [facility] [address] [id number] [address] [place] [address], [place] [address] Nov, [facility] [address] [id number] [address] [place] [address], [place] [address] Nov, [facility] [address] [id number] [address] [place] [address], [place] [address] Nov, [facility] [address] [id number] [address] [place] [address], [place] [address] Nov, [facility] [address] [id number] [address] [place] [address], [place] [address] Nov, [facility] [address] [id number] [address] [place] [address], [place] [address] Nov, [facility] [address] [id number] [address] [place] [address], [place] [address] Oct, [facility] [address] [id number] [address] [place] [address], [place] [address] Oct, [facility] [address] [id number] [address] [place] [address], [place] [address] Oct, [facility] [address] [id number] [address] [place] [address], [place] [address] Oct, [facility] [address] [id number] [address] [place] [address], [place] [address] Oct, [facility] [address] [id number] [address] [place] [address], [place] [address] Oct, [facility] [address] [id number] [address] [place] [address], [place] [address] Oct, [facility] [address] [id number] [address] [place] [address], [place] [address] Oct, [facility] [address] [id number] [address] [place] [address], [place] [address] Sep, Suleiman PEREZ [address] [id number] [id number] August, [facility] [address] [id number] [address] [place] [address], [place] [address] August, [facility] [address] [id number] [address] [place] [address], [place] [address] Jul, [facility] [address] [id number] [address] [place] [address], [place] [address] Jul, [facility] [address] [id number] [address] [place] [address], [place] [address] Jul, [facility] [address] [id number] [address] [place] [address], [place] [address] Jul, [facility] [address] [id number] [address] [place] [address], [place] [address] Jul, [facility] [address] [id number] [address] [place] [address], [place] [address] Jul, [facility] [address] [id number] [address] [place] [address], [place] [address] Jul, [facility] [address] [id number] [address] [place] [address], [place] [address] Jun, [facility] [address] [id number] [address] [place] [address] Jun, [facility] [address] [id number] [address] [place] [address] Jun, [facility] [address] [id number] [address] [place] [address] Jun, [facility] [address] [id number] [address] [place] [address], [place] [address] Jun, [facility] [address] [id number] [address] [place] [address] May, [facility] [address] [id number] [address] [place] [address] May, [facility] [address] [id number] [address] [place] [address], [place] [address] 04 May, 2012 [facility] [address] [id number] [address] [place] [address], [place] [address] 15 Apr, 2012 [facility] [address] [id number] [address] [place] [address], [place] [address] 14 Apr, 2012 [facility] [address] [id number] [address] [place] [address], [place] [address] Apr, [facility] [address] [id number] [address] [place] [address], [place] [address] Mar, [facility] [address] [id number] [address] [place] [address], [place] [address] Mar, [facility] [address] [id number] [address] [place] [address], [place] [address] Mar, [facility] [address] [id number] [address] [place] [address], [place] [address] Mar, [facility] [address] [id number] [address] [place] [address], [place] [address] Mar, [facility] [address] [id number] [address] [place] [address], [place] [address] Mar, [facility] [address] [id number] [address] [place] [address], [place] [address] Feb, [facility] [address] [id number] [address] [place] [address], [place] [address] Feb, [facility] [address] [id number] [address] [place] [address], [place] [address] Jan, [facility] [address] [id number] [address] [place] [address], [place] [address] Jan, [facility] [address] [id number] [address] [place] [address], [place] [address] Dec, [facility] [address] [id number] [address] [place] [address], [place] [address] Nov, [facility] [address] [id number] [address] [place] [address], [place] [address] Nov, [facility] [address] [id number] [address] [place] [address], [place] [address] Nov, [facility] [address] [id number] [address] [place] [address], [place] [address] Nov, [facility] [address] [id number] [address] [place] [address], [place] [address] Oct, [facility] [address] [id number] [address] [place] [address], [place] [address] Oct, [facility] [address] [id number] [address] [place] [address], [place] [address] Oct, [facility] [address] [id number] [address] [place] [address], [place] [address] Sep, [facility] [address] [id number] [address] [place] [address], [place] [address] Sep, [facility] [address] [id number] [address] [place] [address], [place] [address] Sep, [facility] [address] [id number] [address] [place] [address], [place] [address] August, [facility] [address] [id number] [address] [place] [address], [place] [address] August, [facility] [address] [id number] [address] [place] [address], [place] [address] Jul, [facility] [address] [id number] [address] [place] [address], [place] [address] 24 Jul, 2011 [facility] [address] [id number] [address] [place] [address], [place] [address] Jul, [facility] [address] [id number] [address] [place] [address], [place] [address] Jul, [facility] [address] [id number] [address] [place] [address] Jun, [facility] [address] [id number] [address] [place] [address], [place] [address] May, [facility] [address] [id number] [address] [place] [address], [place] [address] Apr, [facility] [address] [id number] [address] [place] [address], [place] [address] Apr, [facility] [address] [id number] [address] [place] [address], [place] [address] Apr, [facility] [address] [id number] [address] [place] [address], [place] [address] Apr, [facility] [address] [id number] [address] [place] [address], [place] [address] Apr, [facility] [address] [id number] [address] [place] [address], [place] [address] Apr, [facility] [address] [id number] [address] [place] [address], [place] [address] Mar, [facility] [address] [id number] [address] [place] [address], [place] [address] Mar, [facility] [address] [id number] [address] [place] [address], [place] [address] Feb, [facility] [address] [id number] [address] [place] [address], [place] [address] Feb, [facility] [address] [id number] [address] [place] [address], [place] [address] Feb, [facility] [address] [id number] [address] [place] [address], [place] [address] 09 Feb, 2011 [facility] [address] [id number] [address] [place] [address], [place] [address] 20 Jan, 2011 [facility] [address] [id number] [address] [place] [address], [place] [address] 18 Jan, 2011 [facility] [address] [id number] [address] [place] [address], [place] [address] 18 Jan, 2011 [facility] [address] [id number] [address] [place] [address], [place] [address] 18 Jan, 2011 [facility] [address] [id number] [address] [place] [address], [place] [address] 17 Nov, 2010 [facility] [address] [id number] [address] [place] [address], [place] [address] 03 Mar, 2010 [facility] [address] [id number] [address] [place] [address], [place] [address] 02 Mar, 2010 [facility] [address] [id number] [address] [place] [address], [place] [address] 30 Feb, 2010 [facility] [address] [id number] [address] [place] [address], [place] [address] 15 Feb, 2010 [facility] [address] [id number] [address] [place] [address], [place] [address] Jan, [facility] [address] [id number] [address] [place] [address], [place] [address] Jan, [facility] [address] [id number] [address] [place] [address], [place] [address] Sep, [facility] [address] [id number] [address] [place] [address], [place] [address] 16 May, 2009 [facility] [address] [id number] [address] [place] [address], [place] [address] Apr, [facility] [address] [id number] [address] [place] [address], [place] [address] Mar, [facility] [address] [id number] [address] [place] [address], [place] [address] Feb, [facility] [address] [id number] [address] [place] [address], [place] [address] Feb, [facility] [address] [id number] [address] [place] [address] Feb, [facility] [address] [facility] [id number] [address] [place] [address] Jan, [facility] [address] [facility] [id number] [address] [place] [address] Jan, [facility] [address] [facility] [id number] [address] [place] [address] Jan, [facility] [address] [facility] [id number] [address] [place] [address] Jan, [facility] [address] [facility] [id number] [address] [place] [address] August, IMMUNIZATIONS No Known Immunizations SOCIAL HISTORY Never Assessed REASON FOR VISIT med refill PLAN OF CARE VITAL SIGNS MEDICATIONS Medication Instructions Dosage Frequency Start Date End Date Duration S tatus Depakote ER 500 mg Orally every night 2 tablet 3 1 days Active RESULTS No Results PROCEDURES No [...] History [facility], inid tient treatment few times for BH
--- OUTSIDE RECORDS SUMMARY | 2019-09-29 11:05 | XMS REPORT ---
Author Author Cameron ALANIZ Organization [facility] Address [address] [place] [address] Care Team Providers Care South Asian History Professor Name Role Phone JEET ALANIZ Unavailable PROBLEMS Type Condition ICD9-CM Code [id number] Code Onset Dates Condition S tatus SNOMED Code Problem Mild mental retardation F70 Active 49653892 Problem Essential hypertension I10 Active 83699752 Problem Obstructive sleep apnea G47.33 Active 88405737 Problem Mild intellectual disability F70 A ctive 18699394 Problem Bipolar disorder, unspecified F31.9 Active 00774096 Problem Diabetes E11.9 Active 38969632 Problem Depression F32.9 Active 23602199 Problem Bipolar disorder, in partial remission, most rec ent episode manic F31.73 Active 23582600 Problem Intermittent explosive disorder in adult F63.81 Active 48548044 Problem Intermittent explosive disorder F63.81 Active 58059687 Problem 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 Active 67415164 Problem Reactive airway disease, unspecified asthma justin rity, uncomplicated J45.909 Active 723996029043 Problem Open-angle glaucoma of both eyes, unspecified glaucoma stage, unspecified open-angle glaucoma type H40.10X0 Acti ve 06314348 Problem Adjustment disorder, unspecified type F43.20 Active 07826874 Problem Hypertensive retinopathy of both eyes H35.033 Active 9532356 Problem Type 2 diabetes mellitus with complication E11.8 Active 60063532 ALLERGIES No Known Allergies SOCIAL HISTORY Never Assessed PLAN OF CARE Activity Details Follow Up 3 Months Reason:DM VITAL SIGNS Height 65 in 2016-08-02 Weight 206.6 lbs 2016-08-02 Temperature 98.1 degrees Fahrenheit 2016-08-02 Heart Rate 84 bpm 2016-08-02 Respiratory Rate 20 2016-08-02 BMI 34.38 kg/m2 2016-08-02 Blood pressure systolic 112 mmHg 2016-08-02 Blood pressure diastolic 70 mmHg 2016-08-02 MEDICATIONS Medication Instructions Dosage Frequency Start Date End Date Duration S tatus Omeprazole 20 MG Orally 2 times a day 1 capsule 12h 30 Active GlyBURIDE 2.5 MG Orally 2 times a day 0.5 tablet 12h 31 Active Actos 15 MG take 1 tablet (15 mg) by oral route once daily 30 Active Tamsulosin HCl 0.4 MG TAKE TWO CAPSULES ORALLY DAILY 30 MINUTES AFTER THE SAME MEAL EACH DAY 30 Active Test strips N/A test blood sugar 12h Active Simvastatin 20 MG Orally Once a day 1 tablet at bedtime 24h Active Folic Acid 1 MG take 0.5 tablet by Oral route 1 time per day 31 Active ZyrTEC 10 mg by oral route Once a day 1 tablet 24h Active desmopressin 0.2 mg 3 Tablet by Oral route 1 time per day qHS Jul, 30 days Active Albuterol Sulfate 2.5 mg /3 mL (0.083 %) 1 Each by Inhalation route 4 times per day for cough and wheeze PRN for wheezing or cough Dec, 4 Active GNP Natural Fiber 0.52 GM Orally Once a day 3 capsules 24h 31 Active Toviaz 8 MG Orally Once a day 1 tablet 24h A ctive Depakote ER 500 MG Orally in the morning 1 tablet Dec, 30 days Active Quetiapine Fumarate 100 MG Orally in am Once a day 1 tablet 24h 30 days Active Diovan HCT 80-12.5 MG Orally Once a day 1 tablet 24h 30 Active Metoprolol Tartrate 25 MG Orally Twice a day 1 tablet with food 12h 31 Active Seroquel 300 MG Orally at bedtime Once a day 1 tablet 24h 30 days Active Abilify 5 MG Orally Once a day 1 tablet 24h 30 days Active Depakote ER 250 MG Orally in the morning 1 tablet Dec, 30 days Active Singulair 10 mg Orally Once a day at hs and take Zyrtec in AM 1 tablet in the evening Oct, 31 Active RESULTS Name Result Date Reference Range A1C (IN HOUSE) 2016-08-02 A1C IN HOUSE 7.0 4.3 - 5.6 % Previous A1c 7.3 Lot [id number] Exp date 04/2018 PROCEDURES Procedure Date Ordered Result Body Site GLYCATED HEMOGLOBIN TEST August 02, 2016 IMMUNIZATIONS No Known Immunizations MEDICAL (GENERAL) [...] History surgery Hospitalization History [facility], infl tient treatment few times for BH
--- OUTSIDE RECORDS SUMMARY | 2019-09-29 11:05 | XMS REPORT ---
Author Author Cameron JEFFERS [facility] [employer] Address Unknown Phone Unavailable Care Team Providers Care Sound Truck Operator Name Role Phone VIRIDIANA JEFFERS CP Unavailable Allergies, Adverse Reactions, Alerts Substance Reaction Event Type N.K.D.A. Info Not Available Non Drug Allergy Problems Problem Type Condition Code Onset Dates Condition Statu s Assessment Bipolar disorder, unspecified F31.9 Active Assessment Diabetes mellitus without me ntion of complication, type II or unspecified type, uncontrolled 250.02 Active Problem Diabetes 250.00 Active Problem Hypertension 401.9 Active Problem Reactive airway disease 493.90 Acti ve Problem Mononeuritis of unspecified site 355.9 Active Problem Obstructive sleep apnea (adult) (pediatric) 327.23 Active Problem Routine general medical examination at [facility] V70.0 Active Problem Unspecified gastritis and ga stroduodenitis without mention of hemorrhage 535.50 Active Medications Medication Code System Code Instructions Start Date End Date Status Dosage GlyBURIDE [facility] 14833120987 2.5 MG Orally 2 times a day 0.5 tablet GNP Natural Fiber [facility] 39665268278 0.52 GM TAKE 3 CAPSULES ORALLY DAILY [5PM] desmopressin ND 0 0.2 mg July 23, 2013 3 T ablet by Oral route 1 time per day qHS Test strips NDC 0 not defined Metoprolol Succinate ER [facility] 75710580826 25 MG Orally Once a day 1 tablet Seroquel [facility] [address]-64 100 MG Orally Once a day 1 tablet Toviaz [facility] [address]-92 8 MG Orally Once a day 1 tablet Abilify [facility] [address]-04 5 MG Orally Once a day Jan 28, 2015 1 tablet Cetirizine HCl [facility] [address]-94 10 MG Orally Once a day 1 tablet as needed Actos [facility] [id number] 15 MG take 1 table t (15 mg) by oral route once daily Omeprazole [facility] 51137851428 20 MG Orally 2 times a day 1 capsule Flomax [facility] 27529722290 0.4 MG Orally Once a day May 18 6 2 capsule 30 minutes after the same meal each day Seroquel [facility] [address]-58 300 MG Orally Once a day 1 tablet at bedtime Simvastatin [facility] 57857780963 20 MG 1 by Ora l route 1 time per day Folic Acid [facility] 28454903230 1 MG take 0.5 tablet by Oral route 1 time per day Albuterol Sulfate [facility] [address]-73 2.5 mg /3 mL (0.083 %) Dec 1 Each by Inhalation route 4 times per day for cough and wheeze PRN for wheezing or cough Singulair [facility] [address]-33 10 MG Orally Once a day Jan 18, 2015 1 tablet in the evening Pulmicort Flexhaler [facility] [address]-13 90 MCG/ACT I nhalation Twice a day sample given Jan 18, 2015 2 puff Diovan HCT [facility] 57159634103 80-12.5 MG Orally Once a day 1 tablet Ventolin HFA [facility] [address]-03 90 mcg/actuation Jan 11, 2014 inhale 2 puff by Inhalation route as needed 1 time per day Q hs and PRN Depakote ER [facility] [address]-96 500 MG Orally once a day qAM 2 tablets Procedures Procedure Coding System Code Date BASIC METABOLIC PANEL CPT-4 15462 Jan 28 15 MH Office Visit, Est Pt., Level 3 CPT-4 56739 Jan 28, 2015 ASSAY, DIPROPYLACETIC ACID CPT-4 29174 Jan VENIPUNCT, ROUTINE* CPT-4 45924 Jan 28, 2015 Vital Signs Date/Time: Jan 28, 2015 Cardiac Monitoring Heart Rate 104 bpm Weight 218.7 lbs Height 65 in BMI 36.39 Index Blood Pressure Diastolic 70 mmHg Blood Pressure Systolic 110 mmHg Results Name Result Date Reference Range Unit Abnormali ty Flag VALPROIC ACID/DEPAKOTE Summary Purpose eClinicalWorks Submission
--- OUTSIDE RECORDS SUMMARY | 2019-09-29 11:06 | XMS REPORT ---
Author Author Cameron BURNETTE Organization [facility] Address [address] [place] [address] Care Team Providers Care Director Women Name Role Phone CARLOS BURNETTE Unavailable PROBLEMS Type Condition ICD9-CM Code LOI75-ZL Code Onset Dates Condition S tatus SNOMED Code Problem Mild mental retardation F70 Active 76931112 Problem Essential hypertension I10 Active 87825815 Problem Obstructive sleep apnea G47.33 Active 53665661 Problem Mild intellectual disability F70 A ctive 24445037 Problem Bipolar disorder, unspecified F31.9 Active 43115280 Problem Diabetes E11.9 Active 68566136 Problem Depression F32.9 Active 49240495 Problem Bipolar disorder, in partial remission, most rec ent episode manic F31.73 Active 64985627 Problem Intermittent explosive disorder in adult F63.81 Active 42816881 Problem Intermittent explosive disorder F63.81 Active 12819647 Problem 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 Active 79818055 Problem Reactive airway disease, unspecified asthma justin rity, uncomplicated J45.909 Active 338468564141 Problem Open-angle glaucoma of both eyes, unspecified glaucoma stage, unspecified open-angle glaucoma type H40.10X0 Acti ve 36276436 Problem Adjustment disorder, unspecified type F43.20 Active 35185713 Problem Hypertensive retinopathy of both eyes H35.033 Active 8819961 Problem Type 2 diabetes mellitus with complication E11.8 Active 83711391 ALLERGIES No Information SOCIAL HISTORY Never Assessed PLAN OF CARE Activity Details Follow Up Restorative Reason: VITAL SIGNS MEDICATIONS Unknown Medications RESULTS No Results PROCEDURES Procedure Date Ordered Result Body Site INTRAORL-PERIAPICAL 1 FILM 81153 July 04, 2016 PERIODIC ORAL EXAMINATION July 04, 2016 INTRAORL-PERIAPICAL 1 FILM 37742 July 04, 2016 INTRAORL-PERIAPICAL 1 FILM 64895 July 04, 2016 INTRAORL-PERIAPICAL 1 FILM 48038 July 04, 2016 INTRAORL-PERIAPICAL 1 FILM 70603 July 04, 2016 INTRAORL-PERIAPICAL 1 FILM 52447 July 04, 2016 INTRAORL-PERIAPICAL 1 FILM 45754 July 04, 2016 INTRAORL-PERIAPICAL 1 FILM 72670 July 04, 2016 INTRAORL-PERIAPICAL 1 FILM 28573 July 04, 2016 IMMUNIZATIONS No Known Immunizations [...] age 6 Hospitalization History surgery Hospitalization History [facility], [facility] treatment few times for BH
--- OUTSIDE RECORDS SUMMARY | 2019-09-29 11:06 | XMS REPORT ---
Author Author Cameron ALANIZ Organization [facility] Address [address] [place] [address] Care Team Providers Care Gate Keeper Name Role Phone JEET ALANIZ Unavailable PROBLEMS Type Condition ICD9-CM Code ZJO03-BC Code Onset Dates Condition S tatus SNOMED Code Problem Essential hypertension I10 Active 87814030 Problem Diabetes E11.9 Active 22255408 Problem Depression F32.9 Active 92001687 Problem Gastroesophageal reflux disease without esophagitis K21.9 Active 053898284 Problem Reactive airway disease, mild intermittent, uncomplicated J45.20 Active 468150181 Problem Intermittent explosive disorder in adult F63.81 Active 44637396 Problem Bipolar disorder, in partial remission, most rec ent episode manic F31.73 Active 85276221 Problem Mild intellectual disability F70 A ctive 74838791 Problem Bipolar disorder, unspecified F31.9 Active 04835659 Problem 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 Active 56356525 Problem Reactive airway disease, unspecified asthma justin rity, uncomplicated J45.909 Active 923705132603 Problem Hypertensive retinopathy of both eyes H35.033 Active 1077746 Problem Type 2 diabetes mellitus with complication E11.8 Active 40306723 Problem Adjustment disorder, unspecified type F43.20 Active 48790465 Problem Intermittent explosive disorder F63.81 Active 74742223 Problem Open-angle glaucoma of both eyes, unspecified glaucoma stage, unspecified open-angle glaucoma type H40.10X0 Acti ve 90702235 Problem Obstructive sleep apnea G47.33 Active 37442089 ALLERGIES No Information ENCOUNTERS Encounter Location Date Diagnosis [facility] [address] [facility] [id number] [address] [place] [address] Oct, [facility] [address] [facility] [id number] [address] [place] [address] Sep, [facility] [address] [id number] [address] [place] [address] Sep, [facility] [address] [id number] [address] [place] [address] [id number] Jul, Dental examination Z01.20 [facility] [address] [facility] [id number] [address] [place] [phone] May, Mild intellectual disability F70 [facility] [address] [facility] [id number] [address] [place] [address] May, Mild intellectual disability F70 ; High risk medication use Z79.899 ; Intermittent explosive disorder in adult F63.81 and Bipolar disorder, unspecified F31.9 [facility] [address] [facility] [id number] [address] [place] [address] May, [facility] [address] [facility] [id number] [address] [place] [address] May, [facility] [address] [facility] [id number] [address] [place] [address] Apr, Type 2 diabetes mellitus wit h complication E11.8 ; Mild intellectual disability F70 ; Gastroesophageal reflux disease without esophagitis K21.9 ; Reactive airway disease, mild intermittent, uncomplicated J45.20 and Tobacco abuse Z72.0 [facility] [address] [facility] [id number] [address] [place] [address] Apr, High risk medication use Z79 .899 ; Mild intellectual disability F70 ; Intermittent explosive disorder in adult F63.81 and Bipolar disorder, unspecified F31.9 [facility] [address] [id number] [address] [place] [address] [id number] Mar, Encounter for dental exam an d cleaning w/o abnormal findings Z01.20 [facility] [address] [id number] [address] [place] [address] [id number] Mar, Dental examination Z01.20 [facility] [address] [facility] [id number] [address] [place] [address] Jan, [facility] [address] [id number] [address] [place] [address] Jan, [facility] [address] [id number] [address] [place] [phone] 10 Jan, 2017 Mild intellectual disability F70 ; Bipolar disorder, unspecified F31.9 and Intermittent explosive disorder in adult F63.81 [facility] [address] [id number] [address] [place] [phone] 02 Jan, 2017 Diabetes E11.9 [facility] [address] [id number] [address] [place] [address] [id number] 13 Dec, 2016 Encounter for dental examina tion and cleaning without abnormal findings Z01.20 [facility] [address] [id number] [address] [place] [phone] 12 Dec, 2016 Bipolar disorder, unspecifie d F31.9 ; Intermittent explosive disorder in adult F63.81 and Mild intellectual disability F70 [facility] [address] [id number] [address] [place] [address] Nov, Diabetes E11.9 [facility] [address] [id number] [address] [place] [address] Nov, [facility] [address] [id number] [address] [place] [address] Nov, Diabetes E11.9 and Colon can cer screening Z12.[id number] [place] [address] [id number] Sep, Dental examination Z01.20 [facility] [address] [id number] [address] [place] [address] [id number] Sep, Encounter for dental examina tion and cleaning without abnormal findings Z01.20 [facility] [address] [id number] [address] [place] [id number] 13 Sep, 2016 Bipolar disorder, unspecifie d F31.9 [facility] [address] [id number] [address] [place] [address] Sep, Bipolar disorder, unspecifie d F31.9 [facility] [address] [id number] [address] [place] [phone] Jul, [facility] [address] [facility] [id number] [address] [place] [id number] 13 Jul, 2016 Type 2 diabetes mellitus wit h complication E11.8 [facility] [address] [id number] [address] [place] [address] [id number] 15 Jun, 2016 Encounter for dental examina tion and cleaning without abnormal findings Z01.20 [place] [id number] [facility] [id number] [place] [address] [id number] Jun, Dental examination Z01.20 [facility] [address] [facility] [id number] [address] [place] [address] Apr, Sports physical Z02.5 [facility] [address] [facility] [id number] [address] [place] [phone] 14 Mar, 2016 Bipolar disorder, in partial remission, most recent episode manic F31.73 and Intermittent explosive disorder in adult F63.81 [facility] [address] [facility] [id number] [address] [place] [phone] 08 Mar, 2016 [facility] [address] [facility] [id number] [address] [place] [phone] 06 Mar, 2016 Diabetes E11.9 [facility] [address] [id number] [address] [place] [address] [phone] Feb, Encounter for dental examina tion and cleaning without abnormal findings Z01.20 [facility] [address] [facility] [id number] [address] [place] [phone] 22 Dec, 2015 Nocturnal hypoxemia G47.34 a nd Encounter for immunization Z23 [facility] [address] [facility] [id number] [address] [place] [phone] 15 Dec, 2015 [facility] [address] [facility] [id number] [address] [place] [id number] 12 Dec, 2015 [facility] [address] [facility] [id number] [address] [place] [id number] Dec, Bipolar disorder, unspecifie d F31.9 [facility] [address] [id number] [address] [place] [address] [id number] 13 Oct, 2015 Encounter for dental examina tion and cleaning without abnormal findings Z01.[address] [place] [address] [id number] [id number] 13 Oct, 2015 Dental examination Z01.20 [facility] [address] [facility] [id number] [address] [place] [phone] 07 Oct, 2015 Diabetes E11.9 [place] [address] [facility] [id number] [address] [place] [phone] Oct, Diabetes E11.9 ; Reactive ai rway disease, mild intermittent, uncomplicated J45.20 and Tobacco abuse Z72.0 [place] [address] [facility] [id number] [address] [place] [phone] Sep, Bipolar disorder, unspecifie d F31.9 and Depression F32.9 [place] [address] [facility] [id number] [address] [place] [phone] Sep, [place] [address] [facility] [id number] [address] [place] [address] August, Tinea pedis of both feet B35 .3 and DM w/o complication type II, uncontrolled E11.65 [facility] [address] [facility] [id number] [address] [place] [address] Jul, [facility] [address] [facility] [id number] [address] [place] [id number] Jul, [place] [address] [facility] [id number] [address] [place] [id number] Jul, Obstructive sleep apnea G47. 33 [place] [address] [facility] [id number] [address] [place] [phone] Jun, Diabetes E11.9 [place] [address] [place] [id number] [address] [place] [address] Jun, [facility] [address] [phone] Jun, [facility] [address] [address] Jun, Bipolar disorder, unspecifie d F31.9 and Mental retardation F79 [place] [address] [phone] Apr, [place] [address] [address] Feb, Diabetes E11.9 ; Encounter f or immunization Z23 ; Cough R05 and Nicotine abuse Z72.0 [place] [address] [phone] Jan, Bipolar disorder, unspecifie d F31.9 and Diabetes mellitus without mention of complication, type II or unspecified type, uncontrolled 250.02 [place] [address] [address] Jan, [place] [address] [address] Dec, Reactive airway disease 493. 90 and Enuresis 788.30 [place] [address] [address] Dec, [place] [address] [id number] Nov, [place] [address] [address] Nov, [place] [address] [id number] Nov, Annual physical exam V70.0 ; Urinary incontinence 788.30 ; Diabetes 250.00 and Hypertension 401.9 [place] [address] [place] [address] Oct, Diabetes mellitus without me ntion of complication, type II or unspecified type, uncontrolled 250.02 [facility] [address] [id number] [address] [place] [phone] Oct, Diabetes mellitus without me ntion of complication, type II or unspecified type, uncontrolled 250.02 [facility] [address] [id number] [address] [place] [address] Oct, Diabetes mellitus without me ntion of complication, type II or unspecified type, uncontrolled 250.02 [facility] [address] [id number] [address] [place] [phone] Oct, [facility] [address] [id number] [address] [place] [id number] Oct, [facility] [address] [id number] [address] [place] [phone] Oct, Bipolar disorder, unspecifie d 296.80 [facility] [address] [id number] [address] [place] [address] [id number] Sep, Dental examination V72.2 [facility] [address] [id number] [address] [place] [phone] August, [facility] [address] [id number] [address] [place] [address] [id number] August, Dental examination V72.2 [facility] [address] [id number] [address] [place] [phone] August, [facility] [address] [id number] [address] [place] [phone] Jul, [facility] [address] [id number] [address] [place] [id number] Jul, [facility] [address] [id number] [address] [place] [phone] Jun, [facility] [address] [id number] [address] [place] [phone] 17 Jun, 2014 [facility] [address] [id number] [address] [place] [address], [place] [address] 17 Jun, 2014 [facility] [address] [id number] [address] [place] [address], [place] [address] 17 Jun, 2014 [facility] [address] [id number] [address] [place] [address], [place] [address] 23 May, 2014 [facility] [address] [id number] [address] [place] [address], [place] [address] 23 May, 2014 [facility] [address] [id number] [address] [place] [address], [place] [address] 16 May, 2014 [facility] [address] [id number] [address] [place] [address], [place] [address] 16 May, 2014 [facility] [address] [id number] [address] [place] [address], [place] [address] 16 May, 2014 [facility] [address] [id number] [address] [place] [address], [place] [address] 16 May, 2014 [facility] [address] [id number] [address] [place] [address], [place] [address] 16 May, 2014 [facility] [address] [id number] [address] [place] [address], [place] [address] 16 May, 2014 [facility] [address] [id number] [address] [place] [address], [place] [address] 16 May, 2014 [facility] [address] [id number] [address] [place] [address], [place] [address] 16 May, 2014 [facility] [address] [id number] [address] [place] [address], [place] [address] 16 May, 2014 [facility] [address] [id number] [address] [place] [address], [place] [address] 16 May, 2014 [facility] [address] [id number] [address] [place] [address], [place] [address] May, [facility] [address] [id number] [address] [place] [address], [place] [address] May, [facility] [address] [id number] [address] [place] [address], [place] [address] May, [facility] [address] [id number] [address] [place] [address], [place] [address] Apr, [facility] [address] [id number] [address] [place] [address], [place] [address] Apr, [facility] [address] [id number] [address] [place] [address], [place] [address] Apr, [facility] [address] [id number] [address] [place] [address], [place] [address] Apr, [facility] [address] [id number] [address] [place] [address], [place] [address] Apr, [facility] [address] [id number] [address] [place] [address], [place] [address] Apr, [facility] [address] [id number] [address] [place] [address], [place] [address] Apr, [facility] [address] [id number] [address] [place] [address], [place] [address] Apr, [facility] [address] [id number] [address] [place] [address], [place] [address] Apr, [facility] [address] [id number] [address] [place] [address], [place] [address] Apr, [facility] [address] [id number] [address] [place] [address], [place] [address] Apr, [facility] [address] [id number] [address] [place] [address], [place] [address] Apr, [facility] [address] [id number] [address] [place] [address], [place] [address] Mar, [facility] [address] [id number] [address] [place] [address], [place] [address] 10 Mar, 2014 [facility] [address] [id number] [address] [place] [address], [place] [address] 10 Mar, 2014 [facility] [address] [id number] [address] [place] [address], [place] [address] 10 Mar, 2014 [facility] [address] [id number] [address] [place] [address], [place] [address] 10 Mar, 2014 [facility] [address] [id number] [address] [place] [address], [place] [address] 10 Mar, 2014 [facility] [address] [id number] [address] [place] [address], [place] [address] Feb, [facility] [address] [id number] [address] [place] [address], [place] [address] Feb, [facility] [address] [id number] [address] [place] [address], [place] [address] Feb, [facility] [address] [id number] [address] [place] [address], [place] [address] Feb, [facility] [address] [id number] [address] [place] [address], [place] [address] 14 Jan, 2014 [facility] [address] [id number] [address] [place] [address], [place] [address] 14 Jan, 2014 [facility] [address] [id number] [address] [place] [address], [place] [address] 14 Jan, 2014 [facility] [address] [id number] [address] [place] [address], [place] [address] 14 Jan, 2014 [facility] [address] [id number] [address] [place] [address], [place] [address] 22 Dec, 2013 [facility] [address] [id number] [address] [place] [address], [place] [address] 22 Dec, 2013 [facility] [address] [id number] [address] [place] [address], [place] [address] Dec, [facility] [address] [id number] [address] [place] [address], [place] [address] Dec, [facility] [address] [id number] [address] [place] [address], [place] [address] Nov, [facility] [address] [id number] [address] [place] [address], [place] [address] Nov, [facility] [address] [id number] [address] [place] [address], [place] [address] Nov, [facility] [address] [id number] [address] [place] [address], [place] [address] Nov, [facility] [address] [id number] [address] [place] [address], [place] [address] Nov, [facility] [address] [id number] [address] [place] [address], [place] [address] Nov, [facility] [address] [id number] [address] [place] [address], [place] [address] Nov, [facility] [address] [id number] [address] [place] [address], [place] [address] Oct, [facility] [address] [id number] [address] [place] [address], [place] [address] Oct, [facility] [address] [id number] [address] [place] [address], [place] [address] Oct, [facility] [address] [id number] [address] [place] [address], [place] [address] Oct, [facility] [address] [id number] [address] [place] [address], [place] [address] Oct, [facility] [address] [id number] [address] [place] [address], [place] [address] Oct, [facility] [address] [id number] [address] [place] [address], [place] [address] Oct, [facility] [address] [id number] [address] [place] [address], [place] [address] Sep, [facility] [address] [id number] [facility] [place] [address] 17 Sep, 2013 [facility] [address] [id number] [address] [place] [address], [place] [address] Sep, [facility] [address] [id number] [address] [place] [address], [place] [address] Sep, [facility] [address] [id number] [address] [place] [address], [place] [address] Sep, [facility] [address] [id number] [address] [place] [address], [place] [address] Jul, [facility] [address] [id number] [address] [place] [address], [place] [address] Jul, [facility] [address] [id number] [address] [place] [address], [place] [address] Jul, [facility] [address] [id number] [address] [place] [address], [place] [address] Jul, [facility] [address] [id number] [address] [place] [address], [place] [address] Jul, [facility] [address] [id number] [address] [place] [address], [place] [address] Jul, [facility] [address] [id number] [address] [place] [address], [place] [address] Jul, [facility] [address] [id number] [address] [place] [address], [place] [address] Jul, [facility] [address] [id number] [address] [place] [address], [place] [address] Jul, [facility] [address] [id number] [address] [place] [address], [place] [address] Jul, [facility] [address] [id number] [address] [place] [address], [place] [address] Jul, [facility] [address] [id number] [address] [place] [address], [place] [address] Jul, [facility] [address] [id number] [address] [place] [address], [place] [address] Jun, [facility] [address] [id number] [address] [place] [address], [place] [address] Jun, [facility] [address] [id number] [address] [place] [address], [place] [address] Jun, [facility] [address] [id number] [address] [place] [address], [place] [address] Jun, [facility] [address] [id number] [address] [place] [address], [place] [address] Jun, [facility] [address] [id number] [address] [place] [address], [place] [address] Jun, [facility] [address] [id number] [address] [place] [address], [place] [address] Jun, [facility] [address] [id number] [address] [place] [address], [place] [address] Jun, [facility] [address] [id number] [address] [place] [address], [place] [address] May, [facility] [address] [id number] [address] [place] [address], [place] [address] May, [facility] [address] [id number] [address] [place] [address], [place] [address] May, [facility] [address] [id number] [address] [place] [address], [place] [address] May, [facility] [address] [id number] [address] [place] [address], [place] [address] May, [facility] [address] [id number] [address] [place] [address], [place] [address] May, [facility] [address] [id number] [address] [place] [address], [place] [address] May, [facility] [address] [id number] [address] [place] [address], [place] [address] May, [facility] [address] [id number] [address] [place] [address], [place] [address] Apr, [facility] [address] [id number] [address] [place] [place] [address], [place] [address] Apr, [facility] [address] [id number] [address] [place] [address], [place] [address] Apr, [facility] [address] [id number] [address] [place] [address], [place] [address] Apr, [facility] [address] [id number] [address] [place] [address], [place] [address] Mar, [facility] [address] [id number] [address] [place] [address], [place] [address] Mar, [facility] [address] [id number] [address] [place] [address], [place] [address] Mar, [facility] [address] [id number] [address] [place] [address], [place] [address] Feb, [facility] [address] [id number] [address] [place] [address], [place] [address] Feb, [facility] [address] [id number] [address] [place] [address], [place] [address] Feb, [facility] [address] [id number] [address] [place] [address], [place] [address] Feb, [facility] [address] [id number] [address] [place] [address], [place] [address] Feb, [facility] [address] [id number] [address] [place] [address], [place] [address] Feb, [facility] [address] [id number] [address] [place] [address], [place] [address] Jan, [facility] [address] [id number] [address] [place] [address], [place] [address] Jan, [facility] [address] [id number] [address] [place] [address], [place] [address] Jan, [facility] [address] [id number] [address] [place] [address], [place] [address] Jan, [facility] [address] [id number] [address] [place] [address], [place] [address] Jan, [facility] [address] [id number] [address] [place] [address], [place] [address] Jan, [facility] [address] [id number] [address] [place] [address], [place] [address] Jan, [facility] [address] [id number] [address] [place] [address], [place] [address] Dec, [facility] [address] [id number] [address] [place] [address], [place] [address] 16 Dec, 2012 [facility] [address] [id number] [address] [place] [address], [place] [address] Dec, [facility] [address] [id number] [address] [place] [address], [place] [address] 05 Dec, 2012 [facility] [address] [id number] [address] [place] [address], [place] [address] Nov, [facility] [address] [id number] [address] [place] [address], [place] [address] Nov, [facility] [address] [id number] [address] [place] [address], [place] [address] Nov, [facility] [address] [id number] [address] [place] [address], [place] [address] Nov, [facility] [address] [id number] [address] [place] [address], [place] [address] Nov, [facility] [address] [id number] [address] [place] [address], [place] [address] Nov, [facility] [address] [id number] [address] [place] [address], [place] [address] Nov, [facility] [address] [id number] [address] [place] [address], [place] [address] Oct, [facility] [address] [id number] [address] [place] [address], [place] [address] Oct, [facility] [address] [id number] [address] [place] [address], [place] [address] Oct, [facility] [address] [id number] [address] [place] [address], [place] [address] Oct, [facility] [address] [id number] [address] [place] [address], [place] [address] Oct, [facility] [address] [id number] [address] [place] [address], [place] [address] Oct, [facility] [address] [id number] [address] [place] [address], [place] [address] Oct, [facility] [address] [id number] [address] [place] [address], [place] [address] Oct, [facility] [address] [id number] [address] [place] [address], [place] [address] Sep, [facility] [address] [facility] [id number] [id number] August, [facility] [address] [id number] [address] [place] [address] August, [facility] [address] [id number] [address] [place] [address], [place] [address] Jul, [facility] [address] [id number] [address] [place] [address], [place] [address] Jul, [facility] [address] [id number] [address] [place] [address], [place] [address] Jul, [facility] [address] [id number] [address] [place] [address], [place] [address] 22 Jul, 2012 [facility] [address] [id number] [address] [place] [address], [place] [address] 18 Jul, 2012 [facility] [address] [id number] [address] [place] [address], [place] [address] 17 Jul, 2012 [facility] [address] [id number] [address] [place] [address], [place] [address] 16 Jul, 2012 [facility] [address] [id number] [address] [place] [address], [place] [address] 21 Jun, 2012 [facility] [address] [id number] [address] [place] [address], [place] [address] 18 Jun, 2012 [facility] [address] [id number] [address] [place] [address], [place] [address] 11 Jun, 2012 [facility] [address] [id number] [address] [place] [address], [place] [address] 04 Jun, 2012 [facility] [address] [id number] [address] [place] [address], [place] [address] 04 Jun, 2012 [facility] [address] [id number] [address] [place] [address], [place] [address] 19 May, 2012 [facility] [address] [id number] [address] [place] [address], [place] [address] 18 May, 2012 [facility] [address] [id number] [address] [place] [address], [place] [address] 04 May, 2012 [facility] [address] [id number] [address] [place] [address], [place] [address] 15 Apr, 2012 [facility] [address] [id number] [address] [place] [address], [place] [address] 14 Apr, 2012 [facility] [address] [id number] [address] [place] [address], [place] [address] 07 Apr, 2012 [facility] [address] [id number] [address] [place] [address], [place] [address] Mar, [facility] [address] [id number] [address] [place] [address], [place] [address] Mar, [facility] [address] [id number] [address] [place] [address], [place] [address] Mar, [facility] [address] [id number] [address] [place] [address], [place] [address] Mar, [facility] [address] [id number] [address] [place] [address], [place] [address] Mar, [facility] [address] [id number] [address] [place] [address], [place] [address] Mar, [facility] [address] [id number] [address] [place] [address], [place] [address] Feb, [facility] [address] [id number] [address] [place] [address], [place] [address] Feb, [facility] [address] [id number] [address] [place] [address], [place] [address] Jan, [facility] [address] [id number] [address] [place] [address], [place] [address] Jan, [facility] [address] [id number] [address] [place] [address], [place] [address] Dec, [facility] [address] [id number] [address] [place] [address], [place] [address] Nov, [facility] [address] [id number] [address] [place] [address], [place] [address] Nov, [facility] [address] [id number] [address] [place] [address], [place] [address] Nov, [facility] [address] [id number] [address] [place] [address], [place] [address] Nov, [facility] [address] [id number] [address] [place] [address], [place] [address] Oct, [facility] [address] [id number] [address] [place] [address], [place] [address] Oct, [facility] [address] [id number] [address] [place] [address], [place] [address] Oct, [facility] [address] [id number] [address] [place] [address], [place] [address] 15 Sep, 2011 [facility] [address] [id number] [address] [place] [address], [place] [address] Sep, [facility] [address] [id number] [address] [place] [address], [place] [address] Sep, [facility] [address] [id number] [address] [place] [address], [place] [address] August, [facility] [address] [id number] [address] [place] [address], [place] [address] August, [facility] [address] [id number] [address] [place] [address], [place] [address] Jul, [facility] [address] [id number] [address] [place] [address], [place] [address] 24 Jul, 2011 [facility] [address] [id number] [address] [place] [address], [place] [address] Jul, [facility] [address] [id number] [address] [place] [address], [place] [address] Jul, [facility] [address] [id number] [address] [place] [address], [place] [address] Jun, [facility] [address] [id number] [address] [place] [address], [place] [address] May, [facility] [address] [id number] [address] [place] [address], [place] [address] Apr, [facility] [address] [id number] [address] [place] [address], [place] [address] Apr, [facility] [address] [id number] [address] [place] [address], [place] [address] Apr, [facility] [address] [id number] [address] [place] [address], [place] [address] Apr, [facility] [address] [id number] [address] [place] [address], [place] [address] Apr, [facility] [address] [id number] [address] [place] [address], [place] [address] Apr, [facility] [address] [id number] [address] [place] [address], [place] [address] Mar, [facility] [address] [id number] [address] [place] [address], [place] [address] Mar, [facility] [address] [id number] [address] [place] [address], [place] [address] Feb, [facility] [address] [id number] [address] [place] [address], [place] [address] Feb, [facility] [address] [id number] [address] [place] [address], [place] [address] Feb, [facility] [address] [id number] [address] [place] [address], [place] [address] Feb, [facility] [address] [id number] [address] [place] [address], [place] [address] Jan, [facility] [address] [id number] [address] [place] [address], [place] [address] Jan, [facility] [address] [id number] [address] [place] [address], [place] [address] Jan, [facility] [address] [id number] [address] [place] [address], [place] [address] Jan, [facility] [address] [id number] [address] [place] [address], [place] [address] Nov, [facility] [address] [id number] [address] [place] [address], [place] [address] Mar, [facility] [address] [id number] [address] [place] [address], [place] [address] 02 Mar, 2010 [facility] [address] [id number] [address] [place] [address], [place] [address] 30 Feb, 2010 [facility] [address] [id number] [address] [place] [address], [place] [address] 15 Feb, 2010 [facility] [address] [id number] [address] [place] [address], [place] [address] 19 Jan, 2010 [facility] [address] [id number] [address] [place] [address], [place] [address] 19 Jan, 2010 [facility] [address] [id number] [address] [place] [address], [place] [address] 15 Sep, 2009 [facility] [address] [id number] [address] [place] [address] 16 May, 2009 [facility] [address] [id number] [address] [place] [address], [place] [address] Apr, [facility] [address] [id number] [address] [place] [address] Mar, [facility] [address] [id number] [address] [place] [address] 15 Feb, 2009 [facility] [address] [id number] [address] [place] [address] 10 Feb, 2009 [facility] [address] [id number] [address] [place] [address] 10 Feb, 2009 [facility] [address] [id number] [address] [place] [address] 22 Jan, 2009 [facility] [address] [id number] [address] [place] [address] 13 Jan, 2009 [facility] [address] [id number] [address] [place] [address] 13 Jan, 2009 [facility] [address] [id number] [address] [place] [address] 11 Jan, 2009 [facility] [address] [id number] [facility] [place] [address] August, IMMUNIZATIONS No Known Immunizations SOCIAL HISTORY [...] Hospitalization History [facility], [facility] treatment few times for BH
--- OUTSIDE RECORDS SUMMARY | 2019-09-29 11:06 | XMS REPORT ---
Author Author Cameron ALANIZ Organization [facility] Address [address] [place] [address] Care Team Providers Care Infrastructure Software Engineer Name Role Phone JEET ALANIZ Unavailable PROBLEMS Type Condition ICD9-CM Code OEC43-PS Code Onset Dates Condition S tatus SNOMED Code Problem Type 2 diabetes mellitus with complication E11.8 Active 33582102 Problem Obstructive sleep apnea G47.33 Active 09367796 Problem Mild mental retardation F70 Active 93401829 Problem Bipolar disorder, unspecified F31.9 Active 96799856 Problem Intermittent explosive disorder in adult F63.81 Active 23245599 Problem Depression F32.9 Active 61339543 Problem Essential hypertension I10 Active 51044811 Problem Bipolar disorder, in partial remission, most rec ent episode manic F31.73 Active 71911639 Problem Diabetes E11.9 Active 18961792 Problem Hypertensive retinopathy of both eyes H35.033 Active 6152484 Problem 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 Unknown Non Drug Allergy Apr, Unknown SOCIAL HISTORY No smoking Hx information available PLAN OF CARE Activity Details Follow Up prn Reason: VITAL SIGNS Height 65 in 2016-05-09 Weight 216.6 lbs 2016-05-09 Temperature 97.5 degrees Fahrenheit 2016-05-09 Heart Rate 88 bpm 2016-05-09 Respiratory Rate 20 2016-05-09 Oximetry on room air:97 % 2016-05-09 BMI 36.04 kg/m2 2016-05-09 Blood pressure systolic 108 mmHg 2016-05-09 Blood pressure diastolic 70 mmHg 2016-05-09 MEDICATIONS Medication Instructions Dosage Frequency Start Date End Date Duration S arnel Singulair 10 mg Orally Once a day at hs and take Zyrtec in AM 1 tablet in the evening Oct, 31 Active Toviaz 8 MG Orally Once a day 1 tablet 24h A ctive Quetiapine Fumarate 100 MG Orally in am Once a day 1 tablet 24h 30 days Active desmopressin 0.2 mg 3 Tablet by Oral route 1 time per day qHS Jul, 30 days Active ZyrTEC 10 mg by oral route Once a day 1 tablet 24h Active Actos 15 MG Orally Once a day 1 tablet 24h A ctive GNP Natural Fiber 0.52 GM Orally Once a day 3 capsules 24h Active GlyBURIDE 2.5 MG Orally 2 times a day 0.5 tablet 12h 31 Active Folic Acid 1 MG take 0.5 tablet by Oral route 1 time per day 31 Active Tamsulosin HCl 0.4 MG TAKE TWO CAPSULES ORALLY DAILY 30 MINUTES AFTER THE SAME MEAL EACH DAY 30 Active Depakote ER 500 MG Orally in the morning 1 tablet Dec, 30 days Active Seroquel 300 MG Orally at bedtime Once a day 1 tablet 24h 30 days Active Omeprazole 20 MG Orally 2 times a day 1 capsule 12h 30 Active Test strips N/A test blood sugar 12h Active Metoprolol Tartrate 25 MG Orally Twice a day 1 tablet with food 12h 31 Active Albuterol Sulfate 2.5 mg /3 mL (0.083 %) 1 Each by Inhalation route 4 times per day for cough and wheeze PRN for wheezing or cough Dec, 4 Active Abilify 5 MG Orally Once a day 1 tablet 24h 30 days Active Simvastatin 20 MG Orally Once a day 1 tablet at bedtime 24h Active Diovan HCT 80-12.5 MG Orally Once a day 1 tablet 24h 30 Active Depakote ER 250 MG Orally in the morning 1 tablet Dec, 30 days Active RESULTS No Results PROCEDURES Procedure Date Ordered Related Diagnosis Body Site MEASURE BLOOD OXYGEN LEVEL May 09, 2016 Office Visit, Est Pt., Level 3 May 09, 2016 IMMUNIZATIONS No Known Immunizations
--- OUTSIDE RECORDS SUMMARY | 2019-09-29 11:06 | XMS REPORT ---
Author Author LETA Cameronsheridan YI Organization [facility] Address [address] [place] [address] Care Team Providers Care Zinc Plater Name Role Phone SAMANTHALIAM WHITTINGTONA Unavailable PROBLEMS Type Condition ICD9-CM Code CYI34-RC Code Onset Dates Condition S tatus SNOMED Code Problem Essential hypertension I10 Active 32177028 Problem Diabetes E11.9 Active 93005671 Problem Depression F32.9 Active 75231522 Problem Gastroesophageal reflux disease without esophagitis K21.9 Active 444729750 Problem Reactive airway disease, mild intermittent, uncomplicated J45.20 Active 049393330 Problem Intermittent explosive disorder in adult F63.81 Active 78286763 Problem Bipolar disorder, in partial remission, most rec ent episode manic F31.73 Active 40200876 Problem Mild intellectual disability F70 A ctive 54592259 Problem Bipolar disorder, unspecified F31.9 Active 95120007 Problem 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 Active 03688269 Problem Reactive airway disease, unspecified asthma justin rity, uncomplicated J45.909 Active 617041714984 Problem Hypertensive retinopathy of both eyes H35.033 Active 4142370 Problem Type 2 diabetes mellitus with complication E11.8 Active 31988696 Problem Adjustment disorder, unspecified type F43.20 Active 03751925 Problem Intermittent explosive disorder F63.81 Active 91427956 Problem Open-angle glaucoma of both eyes, unspecified glaucoma stage, unspecified open-angle glaucoma type H40.10X0 Acti ve 10314413 Problem Obstructive sleep apnea G47.33 Active 29960870 ALLERGIES No Known Allergies ENCOUNTERS Encounter Location Date Diagnosis [facility] [address] [facility] [id number] [address] [place] [id number] Oct, [facility] [address] [facility] [id number] [address] [place] [phone] Sep, [facility] [address] [facility] [id number] [address] [place] [id number] Sep, [facility] [address] [id number] [address] [place] [address] [id number] Jul, Dental examination Z01.20 [facility] [address] [facility] [id number] [address] [place] [phone] May, Mild intellectual disability F70 [facility] [address] [facility] [id number] [address] [place] [phone] May, Mild intellectual disability F70 ; High risk medication use Z79.899 ; Intermittent explosive disorder in adult F63.81 and Bipolar disorder, unspecified F31.9 [facility] [address] [facility] [id number] [address] [place] [phone] May, [facility] [address] [facility] [id number] [address] [place] [phone] May, [facility] [address] [facility] [id number] [address] [place] [phone] Apr, Type 2 diabetes mellitus wit h complication E11.8 ; Mild intellectual disability F70 ; Gastroesophageal reflux disease without esophagitis K21.9 ; Reactive airway disease, mild intermittent, uncomplicated J45.20 and Tobacco abuse Z72.0 [facility] [address] [place] [id number] [address] [place] [phone] Apr, High risk medication use Z79 .899 ; Mild intellectual disability F70 ; Intermittent explosive disorder in adult F63.81 and Bipolar disorder, unspecified F31.9 [facility] [address] [id number] [address] [place] [address] [phone] Mar, Dental examination Z01.20 [facility] [address] [id number] [address] [place] [address] [id number] Mar, Encounter for dental exam an d cleaning w/o abnormal findings Z01.20 [facility] [address] [facility] [id number] [address] [place] [phone] Jan, [facility] [address] [id number] [address] [place] [id number] Jan, [facility] [address] [id number] [address] [place] [phone] 10 Jan, 2017 Mild intellectual disability F70 ; Bipolar disorder, unspecified F31.9 and Intermittent explosive disorder in adult F63.81 [facility] [address] [id number] [address] [place] [phone] 02 Jan, 2017 Diabetes E11.9 [facility] [address] [id number] [address] [place] [address] [id number] 13 Dec, 2016 Encounter for dental examina tion and cleaning without abnormal findings Z01.20 [facility] [address] [id number] [address] [place] [id number] Dec, Bipolar disorder, unspecifie d F31.9 ; Intermittent explosive disorder in adult F63.81 and Mild intellectual disability F70 [facility] [address] [id number] [address] [place] [phone] Nov, Diabetes E11.9 [facility] [address] [id number] [address] [place] [phone] Nov, [facility] [address] [id number] [address] [place] [phone] Nov, Diabetes E11.9 and Colon can cer screening Z12.[id number] [place] [address] [phone] Sep, Dental examination Z01.20 [facility] [address] [id number] [address] [place] [address] [phone] Sep, Encounter for dental examina tion and cleaning without abnormal findings Z01.20 [facility] [address] [id number] [address] [place] [id number] 13 Sep, 2016 Bipolar disorder, unspecifie d F31.9 [facility] [address] [id number] [address] [place] [phone] Sep, Bipolar disorder, unspecifie d F31.9 [facility] [address] [id number] [address] [place] [phone] Jul, [facility] [address] [facility] [id number] [address] [place] [phone] Jul, Type 2 diabetes mellitus wit h complication E11.[address] [id number] [place] [address] [id number] 15 Jun, 2016 Dental examination Z01.20 [facility] [address] [id number] [address] [place] [address] [id number] 15 Jun, 2016 Encounter for dental examina tion and cleaning without abnormal findings Z01.20 [facility] [address] [id number] [address] [place] [phone] 18 Apr, 2016 Sports physical Z02.5 [facility] [address] [facility] [id number] [address] [place] [id number] 14 Mar, 2016 Bipolar disorder, in partial remission, most recent episode manic F31.73 and Intermittent explosive disorder in adult F63.81 [facility] [address] [facility] [id number] [address] [place] [id number] 08 Mar, 2016 [facility] [address] [id number] [address] [place] [phone] 06 Mar, 2016 Diabetes E11.9 [facility] [address] [id number] [address] [place] [address] [phone] Feb, Encounter for dental examina tion and cleaning without abnormal findings Z01.20 [facility] [address] [id number] [address] [place] [phone] 22 Dec, 2015 Nocturnal hypoxemia G47.34 a nd Encounter for immunization Z23 [facility] [address] [id number] [address] [place] [phone] 15 Dec, 2015 [facility] [address] [id number] [address] [place] [phone] 12 Dec, 2015 [place] [address] [facility] [id number] [address] [place] [phone] Dec, Bipolar disorder, unspecifie d F31.9 [facility] [address] [id number] [address] [place] [address] [id number] 13 Oct, 2015 Encounter for dental examina tion and cleaning without abnormal findings Z01.[address] [place] [id number] [id number] 13 Oct, 2015 Dental examination Z01.20 [facility] [address] [facility] [id number] [address] [place] [phone] 07 Oct, 2015 Diabetes E11.9 [place] [address] [phone] 05 Oct, 2015 Diabetes E11.9 ; Reactive ai rway disease, mild intermittent, uncomplicated J45.20 and Tobacco abuse Z72.0 [place] [address] [place] [id number] [address] [place] [phone] Sep, Bipolar disorder, unspecifie d F31.9 and Depression F32.9 [place] [address] [place] [id number] [address] [place] [phone] Sep, [facility] [address] [address] August, Tinea pedis of both feet B35 .3 and DM w/o complication type II, uncontrolled E11.65 [facility] [id number] [place] [phone] Jul, [facility] [id number] [place] [phone] Jul, [place] [address] [id number] Jul, Obstructive sleep apnea G47. 33 [facility] [address] [place] [id number] [address] [place] [phone] Jun, Diabetes E11.9 [facility] [address] [id number] Jun, [facility] [address] [id number] Jun, [facility] [address] [id number] Jun, Bipolar disorder, unspecifie d F31.9 and Mental retardation F79 [place] [address] [id number] Apr, [place] [address] [id number] Feb, Diabetes E11.9 ; Encounter f or immunization Z23 ; Cough R05 and Nicotine abuse Z72.0 [place] [address] [address] Jan, Bipolar disorder, unspecifie d F31.9 and Diabetes mellitus without mention of complication, type II or unspecified type, uncontrolled 250.02 [place] [address] [id number] Jan, [place] [address] [address] Dec, Reactive airway disease 493. 90 and Enuresis 788.30 [place] [address] [id number] Dec, [place] [address] [phone] Nov, [place] [address] [address] Nov, [place] [address] [address] Nov, Annual physical exam V70.0 ; Urinary incontinence 788.30 ; Diabetes 250.00 and Hypertension 401.9 [place] [address] [id number] Oct, Diabetes mellitus without me ntion of complication, type II or unspecified type, uncontrolled 250.02 [facility] [address] [id number] [address] [place] [phone] Oct, Diabetes mellitus without me ntion of complication, type II or unspecified type, uncontrolled 250.02 [facility] [address] [id number] [address] [place] [phone] Oct, Diabetes mellitus without me ntion of complication, type II or unspecified type, uncontrolled 250.02 [facility] [address] [id number] [address] [place] [phone] Oct, [facility] [address] [id number] [address] [place] [id number] Oct, [facility] [address] [id number] [address] [place] [phone] Oct, Bipolar disorder, unspecifie d 296.80 [facility] [address] [id number] [address] [place] [address] [id number] Sep, Dental examination V72.2 [facility] [address] [id number] [address] [place] [phone] August, [facility] [address] [id number] [address] [place] [address] [id number] August, Dental examination V72.2 [facility] [address] [id number] [address] [place] [phone] August, [facility] [address] [id number] [address] [place] [phone] Jul, [facility] [address] [id number] [address] [place] [phone] Jul, [facility] [address] [id number] [address] [place] [phone] Jun, [facility] [address] [id number] [address] [place] [phone] 17 Jun, 2014 [facility] [address] [id number] [address] [place] [address], [place] [id number] 17 Jun, 2014 [facility] [address] [id number] [address] [place] [address], [place] [id number] 17 Jun, 2014 [facility] [address] [id number] [address] [place] [address], [place] [id number] 23 May, 2014 [facility] [address] [id number] [address] [place] [address], [place] [id number] 23 May, 2014 [facility] [address] [id number] [address] [place] [address], [place] [id number] 16 May, 2014 [facility] [address] [id number] [address] [place] [address], [place] [id number] 16 May, 2014 [facility] [address] [id number] [address] [place] [address], [place] [id number] 16 May, 2014 [facility] [address] [id number] [address] [place] [address], [place] [id number] 16 May, 2014 [facility] [address] [id number] [address] [place] [address], [place] [id number] 16 May, 2014 [facility] [address] [id number] [address] [place] [address], [place] [id number] 16 May, 2014 [facility] [address] [id number] [address] [place] [address], [place] [id number] 16 May, 2014 [facility] [address] [id number] [address] [place] [address], [place] [id number] 16 May, 2014 [facility] [address] [id number] [address] [place] [address], [place] [id number] 16 May, 2014 [facility] [address] [id number] [address] [place] [address], [place] [id number] 16 May, 2014 [facility] [address] [id number] [address] [place] [address], [place] [id number] May, [facility] [address] [id number] [address] [place] [address], [place] [id number] May, [facility] [address] [id number] [address] [place] [address], [place] [id number] May, [facility] [address] [id number] [address] [place] [address], [place] [id number] Apr, [facility] [address] [id number] [address] [place] [address], [place] [id number] Apr, [facility] [address] [id number] [address] [place] [address], [place] [id number] Apr, [facility] [address] [id number] [address] [place] [address], [place] [id number] Apr, [facility] [address] [id number] [address] [place] [address], [place] [id number] Apr, [facility] [address] [id number] [address] [place] [address], [place] [id number] Apr, [facility] [address] [id number] [address] [place] [address], [place] [id number] Apr, [facility] [address] [id number] [address] [place] [address], [place] [id number] Apr, [facility] [address] [id number] [address] [place] [address], [place] [id number] Apr, [facility] [address] [id number] [address] [place] [address], [place] [id number] Apr, [facility] [address] [id number] [address] [place] [address], [place] [id number] Apr, [facility] [address] [id number] [address] [place] [address], [place] [id number] Apr, [facility] [address] [id number] [address] [place] [address], [place] [id number] Mar, [facility] [address] [id number] [address] [place] [address], [place] [id number] 10 Mar, 2014 [facility] [address] [id number] [address] [place] [address], [place] [id number] 10 Mar, 2014 [facility] [address] [id number] [address] [place] [address], [place] [id number] 10 Mar, 2014 [facility] [address] [id number] [address] [place] [address], [place] [id number] 10 Mar, 2014 [facility] [address] [id number] [address] [place] [address], [place] [id number] 10 Mar, 2014 [facility] [address] [id number] [address] [place] [address], [place] [id number] 13 Feb, 2014 [facility] [address] [id number] [address] [place] [address], [place] [id number] 13 Feb, 2014 [facility] [address] [id number] [address] [place] [address], [place] [id number] Feb, [facility] [address] [id number] [address] [place] [address], [place] [id number] 13 Feb, 2014 [facility] [address] [id number] [address] [place] [address], [place] [id number] 14 Jan, 2014 [facility] [address] [id number] [address] [place] [address], [place] [id number] 14 Jan, 2014 [facility] [address] [id number] [address] [place] [address], [place] [id number] 14 Jan, 2014 [facility] [address] [id number] [address] [place] [address], [place] [id number] 14 Jan, 2014 [facility] [address] [id number] [address] [place] [address], [place] [id number] 22 Dec, 2013 [facility] [address] [id number] [address] [place] [address], [place] [id number] 22 Dec, 2013 [facility] [address] [id number] [address] [place] [address], [place] [id number] 15 Dec, 2013 [facility] [address] [id number] [facility] [place] [id number] Dec, [facility] [address] [id number] [facility] [place] [id number] Nov, [facility] [address] [id number] [facility] [place] [id number] Nov, [facility] [address] [id number] [address] [place] [address], [place] [id number] Nov, [facility] [address] [id number] [address] [place] [address], [place] [address] Nov, [facility] [address] [id number] [address] [place] [address], [place] [id number] Nov, [facility] [address] [id number] [address] [place] [address], [place] [id number] Nov, [facility] [address] [id number] [address] [place] [address], [place] [id number] Nov, [facility] [address] [id number] [address] [place] [address], [place] [id number] Oct, [facility] [address] [id number] [address] [place] [address], [place] [id number] Oct, [facility] [address] [id number] [address] [place] [address], [place] [id number] Oct, [facility] [address] [id number] [address] [place] [address], [place] [id number] Oct, [facility] [address] [id number] [address] [place] [address], [place] [address] Oct, [facility] [address] [id number] [address] [place] [address], [place] [id number] Oct, [facility] [address] [id number] [address] [place] [address], [place] [id number] Oct, [facility] [address] [id number] [address] [place] [address], [place] [id number] Sep, [facility] [address] [id number] [address] [place] [address], [place] [id number] 17 Sep, 2013 [facility] [address] [id number] [address] [place] [address], [place] [id number] Sep, [facility] [address] [id number] [address] [place] [address], [place] [id number] Sep, [facility] [address] [id number] [address] [place] [address], [place] [id number] Sep, [facility] [address] [id number] [address] [place] [address], [place] [id number] Jul, [facility] [address] [id number] [address] [place] [address], [place] [id number] Jul, [facility] [address] [id number] [address] [place] [address], [place] [id number] Jul, [facility] [address] [id number] [address] [place] [address], [place] [id number] Jul, [facility] [address] [id number] [address] [place] [address], [place] [id number] Jul, [facility] [address] [id number] [address] [place] [address], [place] [id number] Jul, [facility] [address] [id number] [address] [place] [address], [place] [id number] Jul, [facility] [address] [id number] [address] [place] [address], [place] [id number] Jul, [facility] [address] [id number] [address] [place] [address], [place] [id number] Jul, [facility] [address] [id number] [address] [place] [address], [place] [id number] Jul, [facility] [address] [id number] [address] [place] [address], [place] [id number] Jul, [facility] [address] [id number] [address] [place] [address], [place] [id number] Jul, [facility] [address] [id number] [address] [place] [address], [place] [id number] Jun, [facility] [address] [id number] [address] [place] [address], [place] [id number] Jun, [facility] [address] [id number] [address] [place] [address], [place] [id number] Jun, [facility] [address] [id number] [address] [place] [address], [place] [id number] Jun, [facility] [address] [id number] [address] [place] [address], [place] [id number] Jun, [facility] [address] [id number] [address] [place] [address], [place] [id number] Jun, [facility] [address] [id number] [address] [place] [address], [place] [id number] Jun, [facility] [address] [id number] [address] [place] [address], [place] [id number] Jun, [facility] [address] [id number] [address] [place] [address], [place] [id number] May, [facility] [address] [id number] [address] [place] [address], [place] [id number] May, [facility] [address] [id number] [address] [place] [address], [place] [id number] May, [facility] [address] [id number] [address] [place] [address], [place] [id number] May, [facility] [address] [id number] [address] [place] [address], [place] [id number] May, [facility] [address] [id number] [address] [place] [address], [place] [id number] May, [facility] [address] [id number] [address] [place] [address], [place] [id number] May, [facility] [address] [id number] [address] [place] [address], [place] [id number] May, [facility] [address] [id number] [address] [place] [address], [place] [id number] Apr, [facility] [address] [id number] [address] [place] [address], [place] [id number] Apr, [facility] [address] [id number] [address] [place] [address], [place] [id number] Apr, [facility] [address] [id number] [address] [place] [address], [place] [id number] Apr, [facility] [address] [id number] [address] [place] [address], [place] [id number] Mar, [facility] [address] [id number] [address] [place] [address], [place] [id number] Mar, [facility] [address] [id number] [address] [place] [address], [place] [id number] Mar, [facility] [address] [id number] [address] [place] [address], [place] [id number] Feb, [facility] [address] [id number] [address] [place] [address], [place] [id number] Feb, [facility] [address] [id number] [address] [place] [address], [place] [id number] Feb, [facility] [address] [id number] [address] [place] [address], [place] [id number] Feb, [facility] [address] [id number] [address] [place] [address], [place] [id number] Feb, [facility] [address] [id number] [address] [place] [address], [place] [id number] Feb, [facility] [address] [id number] [address] [place] [address], [place] [id number] Jan, [facility] [address] [id number] [address] [place] [address], [place] [id number] Jan, [facility] [address] [id number] [address] [place] [address], [place] [id number] Jan, [facility] [address] [id number] [address] [place] [address], [place] [id number] Jan, [facility] [address] [id number] [address] [place] [address], [place] [id number] Jan, [facility] [address] [id number] [address] [place] [address], [place] [id number] Jan, [facility] [address] [id number] [address] [place] [address], [place] [id number] Jan, [facility] [address] [id number] [address] [place] [address], [place] [id number] Dec, [facility] [address] [id number] [address] [place] [address], [place] [id number] 16 Dec, 2012 [facility] [address] [id number] [address] [place] [address], [place] [id number] Dec, [facility] [address] [id number] [address] [place] [address], [place] [id number] 05 Dec, 2012 [facility] [address] [id number] [address] [place] [address], [place] [id number] Nov, [facility] [address] [id number] [address] [place] [address], [place] [id number] Nov, [facility] [address] [id number] [address] [place] [address], [place] [id number] Nov, [facility] [address] [id number] [address] [place] [address], [place] [id number] Nov, [facility] [address] [id number] [address] [place] [address], [place] [id number] Nov, [facility] [address] [id number] [address] [place] [address], [place] [id number] Nov, [facility] [address] [id number] [address] [place] [address], [place] [id number] Nov, [facility] [address] [id number] [address] [place] [address], [place] [id number] Oct, [facility] [address] [id number] [address] [place] [address], [place] [id number] Oct, [facility] [address] [id number] [address] [place] [address], [place] [id number] Oct, [facility] [address] [id number] [address] [place] [address], [place] [id number] Oct, [facility] [address] [id number] [address] [place] [address], [place] [id number] Oct, [facility] [address] [id number] [address] [place] [address], [place] [id number] Oct, [facility] [address] [id number] [address] [place] [address], [place] [id number] Oct, [facility] [address] [id number] [address] [place] [address], [place] [id number] Oct, [facility] [address] [id number] [address] [place] [address], [place] [id number] Sep, [facility] [address] [facility] [id number] [id number] August, [facility] [address] [id number] [address] [place] [id number] August, [facility] [address] [id number] [address] [place] [address], [place] [id number] Jul, [facility] [address] [id number] [address] [place] [address], [place] [id number] Jul, [facility] [address] [id number] [address] [place] [address], [place] [id number] Jul, [facility] [address] [id number] [address] [place] [address], [place] [id number] 22 Jul, 2012 [facility] [address] [id number] [address] [place] [address], [place] [id number] 18 Jul, 2012 [facility] [address] [id number] [address] [place] [address], [place] [id number] 17 Jul, 2012 [facility] [address] [id number] [address] [place] [address], [place] [id number] 16 Jul, 2012 [facility] [address] [id number] [address] [place] [address], [place] [id number] 21 Jun, 2012 [facility] [address] [id number] [address] [place] [address], [place] [id number] 18 Jun, 2012 [facility] [address] [id number] [address] [place] [address], [place] [id number] Jun, [facility] [address] [id number] [address] [place] [address], [place] [id number] 04 Jun, 2012 [facility] [address] [id number] [address] [place] [address], [place] [id number] 04 Jun, 2012 [facility] [address] [id number] [address] [place] [address], [place] [id number] 19 May, 2012 [facility] [address] [id number] [address] [place] [address], [place] [id number] 18 May, 2012 [facility] [address] [id number] [address] [place] [address], [place] [id number] 04 May, 2012 [facility] [address] [id number] [address] [place] [address], [place] [id number] 15 Apr, 2012 [facility] [address] [id number] [address] [place] [address], [place] [id number] 14 Apr, 2012 [facility] [address] [id number] [address] [place] [address], [place] [id number] 07 Apr, 2012 [facility] [address] [id number] [address] [place] [address], [place] [id number] Mar, [facility] [address] [id number] [address] [place] [address], [place] [id number] Mar, [facility] [address] [id number] [address] [place] [address], [place] [id number] Mar, [facility] [address] [id number] [address] [place] [address], [place] [id number] Mar, [facility] [address] [id number] [address] [place] [address], [place] [id number] Mar, [facility] [address] [id number] [address] [place] [address], [place] [id number] Mar, [facility] [address] [id number] [address] [place] [address], [place] [id number] Feb, [facility] [address] [id number] [address] [place] [address], [place] [id number] Feb, [facility] [address] [id number] [address] [place] [address], [place] [id number] Jan, [facility] [address] [id number] [address] [place] [address], [place] [id number] Jan, [facility] [address] [id number] [address] [place] [address], [place] [id number] Dec, [facility] [address] [id number] [address] [place] [address], [place] [id number] Nov, [facility] [address] [id number] [address] [place] [address], [place] [id number] Nov, [facility] [address] [id number] [address] [place] [address], [place] [id number] Nov, [facility] [address] [id number] [address] [place] [address], [place] [id number] Nov, [facility] [address] [id number] [address] [place] [address], [place] [id number] Oct, [facility] [address] [id number] [address] [place] [address], [place] [id number] Oct, [facility] [address] [id number] [address] [place] [address], [place] [id number] Oct, [facility] [address] [id number] [address] [place] [address], [place] [id number] Sep, [facility] [address] [id number] [address] [place] [address], [place] [id number] Sep, [facility] [address] [id number] [address] [place] [address], [place] [id number] Sep, [facility] [address] [id number] [address] [place] [address], [place] [id number] August, [facility] [address] [id number] [address] [place] [address], [place] [id number] August, [facility] [address] [id number] [address] [place] [address], [place] [id number] Jul, [facility] [address] [id number] [address] [place] [address], [place] [id number] 24 Jul, 2011 [facility] [address] [id number] [address] [place] [address], [place] [id number] Jul, [facility] [address] [id number] [address] [place] [address], [place] [id number] Jul, [facility] [address] [id number] [address] [place] [address], [place] [id number] Jun, [facility] [address] [id number] [address] [place] [address], [place] [id number] May, [facility] [address] [id number] [address] [place] [address], [place] [id number] Apr, [facility] [address] [id number] [address] [place] [address], [place] [id number] Apr, [facility] [address] [id number] [address] [place] [address], [place] [id number] Apr, [facility] [address] [id number] [address] [place] [address], [place] [id number] Apr, [facility] [address] [id number] [address] [place] [address], [place] [id number] Apr, [facility] [address] [id number] [address] [place] [address], [place] [id number] Apr, [facility] [address] [id number] [address] [place] [address], [place] [id number] Mar, [facility] [address] [id number] [address] [place] [address], [place] [id number] Mar, [facility] [address] [id number] [address] [place] [address], [place] [id number] Feb, [facility] [address] [id number] [address] [place] [address], [place] [id number] Feb, [facility] [address] [id number] [address] [place] [address], [place] [id number] Feb, [facility] [address] [id number] [address] [place] [address], [place] [id number] Feb, [facility] [address] [id number] [address] [place] [address], [place] [id number] Jan, [facility] [address] [id number] [address] [place] [address], [place] [id number] Jan, [facility] [address] [id number] [address] [place] [address], [place] [id number] Jan, [facility] [address] [id number] [address] [place] [address], [place] [id number] Jan, [facility] [address] [id number] [address] [place] [address], [place] [id number] Nov, [facility] [address] [id number] [address] [place] [address], [place] [id number] Mar, [facility] [address] [id number] [address] [place] [address], [place] [id number] Mar, [facility] [address] [id number] [address] [place] [id number] 30 Feb, 2010 [facility] [address] [id number] [address] [place] [id number] 15 Feb, 2010 [facility] [address] [id number] [address] [place] [address], [place] [id number] 19 Jan, 2010 [facility] [address] [id number] [address] [place] [address], [place] [id number] 19 Jan, 2010 [facility] [address] [id number] [address] [place] [address], [place] [id number] 15 Sep, 2009 [facility] [address] [id number] [address] [place] [id number] 16 May, 2009 [facility] [address] [id number] [address] [place] [address], [place] [id number] Apr, [facility] [address] [id number] [address] [place] [id number] Mar, [facility] [address] [id number] [address] [place] [id number] 15 Feb, 2009 [facility] [address] [id number] [address] [place] [id number] 10 Feb, 2009 [facility] [address] [id number] [address] [place] [phone] 10 Feb, 2009 [facility] [address] [id number] [address] [place] [id number] 22 Jan, 2009 [facility] [address] [id number] [address] [place] [id number] 13 Jan, 2009 [facility] [address] [id number] [address] [place] [id number] 13 Jan, 2009 [facility] [address] [id number] [address] [place] [id number] 11 Jan, 2009 [facility] [address] [id number] [address] [place] [address] August, IMMUNIZATIONS No Known Immunizations SOCIAL HISTORY Never Assessed REASON FOR VISIT intake Beth PLAN OF CARE Activity Details Follow Up 4 Weeks Reason: VITAL SIGNS Height 65 in 2017-01-01 Weight 208 lbs 2017-01-01 Heart Rate 84 bpm 2017-01-01 Respiratory Rate 22 2017-01-01 BMI 34.61 kg/m2 2017-01-01 Blood pressure systolic 98 mmHg 2017-01-01 Blood pressure diastolic 60 mmHg 2017-01-01 MEDICATIONS Medication Instructions Dosage Frequency Start Date End Date Duration S tatus GNP Natural Fiber 0.52 GM Orally Once a day 3 capsules 24h 31 Active Tamsulosin HCl 0.4 MG TAKE TWO CAPSULES ORALLY DAILY 30 MINUTES AFTER THE SAME MEAL EACH DAY 31 Active Ventolin HFA 108 (90 Base) MCG/ACT Inhalation every 4 hrs 2 puffs a s needed 4h Active GlyBURIDE 2.5 MG Orally 2 times a day 0.5 tablet 12h 31 Active Folic Acid 1 MG take 0.5 tablet by Oral route 1 time per day 31 Active TRUEtest Test - test blood sugar 12h Nov, Active Simvastatin 20 MG Orally Once a day 1 tablet at bedtime 24h 31 Active Depakote ER 500 MG Orally at bedtime once a day 1 tablet 24h Active Singulair 10 mg Orally Once a day at hs and take Zyrtec in AM 1 tablet in the evening Oct, 31 Active Albuterol Sulfate 2.5 mg /3 mL (0.083 %) 1 Each by Inhalation route 4 times per day for cough and wheeze PRN for wheezing or cough Dec, 4 Active Omeprazole 20 MG Orally 2 times a day 1 capsule 12h 30 Active Seroquel 400 MG Orally Once a day at bedtime 1 tablet 30 days Active Metoprolol Tartrate 25 MG Orally Twice a day 1 tablet with food 12h 31 Active Diovan HCT 80-12.5 MG Orally Once a day 1 tablet 24h 31 Active desmopressin 0.2 mg 3 Tablet by Oral route 1 time per day qHS Jul, 30 days Active Cetirizine HCl 10 MG TAKE 1 TABLET ORALLY DAILY 31 Active Depakote ER 250 MG Orally in the morning 1 tablet Active Toviaz 8 MG Orally Once a day 1 tablet 24h A ctive Actos 15 MG take 1 tablet (15 mg) by oral route once daily 31 Active RESULTS No Results PROCEDURES Procedure Date Ordered Result Body Site PSYTX COMPLEX INTERACTIVE Jan 01, 2017 INSTRUCTIONS MEDICATIONS ADMINISTERED No Known Medications [...] 7 Hospitalization History surgery Hospitalization History [facility], intx tient treatment few times for BH
--- OUTSIDE RECORDS SUMMARY | 2019-09-29 11:06 | XMS REPORT ---
Author Author Cameron ALANIZ Organization [facility] Address [address] [place] [address] Care Team Providers Care Pastoral Worker Name Role Phone JEET ALANIZ Unavailable PROBLEMS Type Condition ICD9-CM Code [id number] Code Onset Dates Condition S tatus SNOMED Code Problem Essential hypertension I10 Active 64131003 Problem Diabetes E11.9 Active 87510545 Problem Depression F32.9 Active 19084482 Problem Gastroesophageal reflux disease without esophagitis K21.9 Active 004151117 Problem Reactive airway disease, mild intermittent, uncomplicated J45.20 Active 778674031 Problem Intermittent explosive disorder in adult F63.81 Active 80687367 Problem Bipolar disorder, in partial remission, most rec ent episode manic F31.73 Active 91104866 Problem Mild intellectual disability F70 A ctive 09919329 Problem Bipolar disorder, unspecified F31.9 Active 72390853 Problem 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 Active 03012588 Problem Reactive airway disease, unspecified asthma justin rity, uncomplicated J45.909 Active 269547780115 Problem Hypertensive retinopathy of both eyes H35.033 Active 1966398 Problem Type 2 diabetes mellitus with complication E11.8 Active 17568142 Problem Adjustment disorder, unspecified type F43.20 Active 48302306 Problem Intermittent explosive disorder F63.81 Active 40923084 Problem Open-angle glaucoma of both eyes, unspecified glaucoma stage, unspecified open-angle glaucoma type H40.10X0 Acti ve 06711022 Problem Obstructive sleep apnea G47.33 Active 96140932 ALLERGIES No Information ENCOUNTERS Encounter Location Date Diagnosis [facility] [address] [facility] [id number] [address] [place] [phone] Oct, [facility] [address] [facility] [id number] [address] [place] [phone] Sep, [facility] [address] [id number] [address] [place] [phone] Sep, [facility] [address] [id number] [address] [place] [address] [phone] Jul, Dental examination Z01.20 [facility] [address] [facility] [id number] [address] [place] [phone] May, Mild intellectual disability F70 [facility] [address] [facility] [id number] [address] [place] [phone] May, Mild intellectual disability F70 ; High risk medication use Z79.899 ; Intermittent explosive disorder in adult F63.81 and Bipolar disorder, unspecified F31.9 [facility] [address] [facility] [id number] [address] [place] [phone] May, [facility] [address] [facility] [id number] [address] [place] [phone] May, [facility] [address] [facility] [id number] [address] [place] [phone] Apr, Type 2 diabetes mellitus wit h complication E11.8 ; Mild intellectual disability F70 ; Gastroesophageal reflux disease without esophagitis K21.9 ; Reactive airway disease, mild intermittent, uncomplicated J45.20 and Tobacco abuse Z[address].0 [facility] [address] [facility] [id number] [address] [place] [phone] Apr, High risk medication use Z79 .899 ; Mild intellectual disability F70 ; Intermittent explosive disorder in adult F63.81 and Bipolar disorder, unspecified F31.9 [facility] [address] [id number] [address] [place] [address] [phone] Mar, Encounter for dental exam an d cleaning w/o abnormal findings Z01.20 [facility] [address] [id number] [address] [place] [address] [phone] Mar, Dental examination Z01.20 [facility] [address] [facility] [id number] [address] [place] [phone] Jan, [facility] [address] [id number] [address] [place] [phone] Jan, [facility] [address] [id number] [address] [place] [phone] 10 Jan, 2017 Mild intellectual disability F70 ; Bipolar disorder, unspecified F31.9 and Intermittent explosive disorder in adult F63.81 [facility] [address] [id number] [address] [place] [phone] 02 Jan, 2017 Diabetes E11.9 [facility] [address] [id number] [address] [place] [address] [id number] 13 Dec, 2016 Encounter for dental examina tion and cleaning without abnormal findings Z01.20 [facility] [address] [id number] [address] [place] [phone] 12 Dec, 2016 Bipolar disorder, unspecifie d F31.9 ; Intermittent explosive disorder in adult F63.81 and Mild intellectual disability F70 [facility] [address] [id number] [address] [place] [phone] Nov, Diabetes E11.9 [facility] [address] [id number] [address] [place] [phone] Nov, [facility] [address] [id number] [address] [place] [phone] Nov, Diabetes E11.9 and Colon can cer screening Z12.[address] [id number] [place] [address] [phone] Sep, Dental examination Z01.20 [facility] [address] [id number] [address] [place] [address] [id number] Sep, Encounter for dental examina tion and cleaning without abnormal findings Z01.20 [facility] [address] [id number] [address] [place] [phone] 13 Sep, 2016 Bipolar disorder, unspecifie d F31.9 [facility] [address] [id number] [address] [place] [phone] Sep, Bipolar disorder, unspecifie d F31.9 [facility] [address] [id number] [address] [place] [phone] Jul, [facility] [address] [facility] [id number] [address] [place] [phone] 13 Jul, 2016 Type 2 diabetes mellitus wit h complication E11.8 [facility] [address] [id number] [address] [place] [address] [phone] 15 Jun, 2016 Encounter for dental examina tion and cleaning without abnormal findings Z01.20 [place] [id number] [facility] [id number] [place] [address] [phone] Jun, Dental examination Z01.20 [facility] [address] [facility] [id number] [address] [place] [phone] Apr, Sports physical Z02.5 [facility] [address] [facility] [id number] [address] [place] [phone] 14 Mar, 2016 Bipolar disorder, in partial remission, most recent episode manic F31.73 and Intermittent explosive disorder in adult F63.81 [facility] [address] [facility] [id number] [address] [place] [phone] 08 Mar, 2016 [facility] [address] [facility] [id number] [address] [place] [phone] 06 Mar, 2016 Diabetes E11.9 [facility] [address] [id number] [address] [place] [address] [phone] Feb, Encounter for dental examina tion and cleaning without abnormal findings Z01.20 [facility] [address] [facility] [id number] [address] [place] [phone] 22 Dec, 2015 Nocturnal hypoxemia G47.34 a nd Encounter for immunization Z23 [facility] [address] [facility] [id number] [address] [place] [phone] 15 Dec, 2015 [facility] [address] [facility] [id number] [address] [place] [phone] 12 Dec, 2015 [facility] [address] [facility] [id number] [address] [place] [phone] Dec, Bipolar disorder, unspecifie d F31.9 [facility] [address] [id number] [address] [place] [address] [id number] 13 Oct, 2015 Encounter for dental examina tion and cleaning without abnormal findings Z01.[address] [place] [address] [id number] [id number] 13 Oct, [address] [facility] [address] [facility] [id number] [address] [place] [phone] 07 Oct, 2015 Diabetes E11.9 [place] [address] [facility] [id number] [address] [place] [phone] Oct, Diabetes E11.9 ; Reactive ai rway disease, mild intermittent, uncomplicated J45.20 and Tobacco abuse Z72.0 [place] [address] [facility] [id number] [address] [place] [phone] Sep, Bipolar disorder, unspecifie d F31.9 and Depression F32.9 [place] [address] [facility] [id number] [address] [place] [phone] Sep, [place] [address] [facility] [id number] [address] [place] [phone] August, Tinea pedis of both feet B35 .3 and DM w/o complication type II, uncontrolled E11.65 [facility] [address] [facility] [id number] [address] [place] [phone] Jul, [facility] [address] [facility] [id number] [address] [place] [phone] Jul, [place] [address] [facility] [id number] [address] [place] [phone] Jul, Obstructive sleep apnea G47. 33 [place] [address] [facility] [id number] [address] [place] [phone] Jun, Diabetes E11.9 [place] [address] [place] [id number] [address] [place] [phone] Jun, [facility] [address] [address] Jun, [facility] [address] [phone] Jun, Bipolar disorder, unspecifie d F31.9 and Mental retardation F79 [place] [address] [id number] Apr, [place] [address] [phone] Feb, Diabetes E11.9 ; Encounter f or immunization Z23 ; Cough R05 and Nicotine abuse Z72.0 [place] [address] [phone] Jan, Bipolar disorder, unspecifie d F31.9 and Diabetes mellitus without mention of complication, type II or unspecified type, uncontrolled 250.02 [place] [address] [address] Jan, [place] [address] [address] Dec, Reactive airway disease 493. 90 and Enuresis 788.30 [place] [address] [address] Dec, [place] [address] [address] Nov, [place] [address] [address] Nov, [place] [address] [address] Nov, Annual physical exam V70.0 ; Urinary incontinence 788.30 ; Diabetes 250.00 and Hypertension 401.9 [place] [address] [place] [address] Oct, Diabetes mellitus without me ntion of complication, type II or unspecified type, uncontrolled 250.02 [facility] [address] [id number] [address] [place] [phone] Oct, Diabetes mellitus without me ntion of complication, type II or unspecified type, uncontrolled 250.02 [facility] [address] [id number] [address] [place] [phone] Oct, Diabetes mellitus without me ntion of complication, type II or unspecified type, uncontrolled 250.02 [facility] [address] [id number] [address] [place] [phone] Oct, [facility] [address] [id number] [address] [place] [phone] Oct, [facility] [address] [id number] [address] [place] [phone] Oct, Bipolar disorder, unspecifie d 296.80 [facility] [address] [id number] [address] [place] [address] [phone] Sep, Dental examination V72.2 [facility] [address] [id number] [address] [place] [phone] August, [facility] [address] [id number] [address] [place] [address] [id number] August, Dental examination V72.2 [facility] [address] [id number] [address] [place] [phone] August, [facility] [address] [id number] [address] [place] [phone] Jul, [facility] [address] [id number] [address] [place] [phone] Jul, [facility] [address] [id number] [address] [place] [phone] Jun, [facility] [address] [id number] [address] [place] [phone] 17 Jun, 2014 [facility] [address] [id number] [address] [place] [address], [place] [address] 17 Jun, 2014 [facility] [address] [id number] [address] [place] [address], [place] [address] 17 Jun, 2014 [facility] [address] [id number] [address] [place] [address], [place] [address] 23 May, 2014 [facility] [address] [id number] [address] [place] [address], [place] [address] 23 May, 2014 [facility] [address] [id number] [address] [place] [address], [place] [address] 16 May, 2014 [facility] [address] [id number] [address] [place] [address], [place] [address] 16 May, 2014 [facility] [address] [id number] [address] [place] [address], [place] [address] 16 May, 2014 [facility] [address] [id number] [address] [place] [address], [place] [address] 16 May, 2014 [facility] [address] [id number] [address] [place] [address], [place] [address] 16 May, 2014 [facility] [address] [id number] [address] [place] [address], [place] [address] 16 May, 2014 [facility] [address] [id number] [address] [place] [address], [place] [address] 16 May, 2014 [facility] [address] [id number] [address] [place] [address], [place] [address] 16 May, 2014 [facility] [address] [id number] [address] [place] [address], [place] [address] 16 May, 2014 [facility] [address] [id number] [address] [place] [address], [place] [address] 16 May, 2014 [facility] [address] [id number] [address] [place] [address], [place] [address] May, [facility] [address] [id number] [address] [place] [address], [place] [address] May, [facility] [address] [id number] [address] [place] [address], [place] [address] May, [facility] [address] [id number] [address] [place] [address], [place] [address] Apr, [facility] [address] [id number] [address] [place] [address], [place] [address] Apr, [facility] [address] [id number] [address] [place] [address], [place] [address] Apr, [facility] [address] [id number] [address] [place] [address], [place] [address] Apr, [facility] [address] [id number] [address] [place] [address], [place] [address] Apr, [facility] [address] [id number] [address] [place] [address], [place] [address] Apr, [facility] [address] [id number] [address] [place] [address], [place] [address] Apr, [facility] [address] [id number] [address] [place] [address], [place] [address] Apr, [facility] [address] [id number] [address] [place] [address], [place] [address] Apr, [facility] [address] [id number] [address] [place] [address], [place] [address] Apr, [facility] [address] [id number] [address] [place] [address], [place] [address] Apr, [facility] [address] [id number] [address] [place] [address], [place] [address] Apr, [facility] [address] [id number] [address] [place] [address], [place] [address] Mar, [facility] [address] [id number] [address] [place] [address], [place] [address] 10 Mar, 2014 [facility] [address] [id number] [address] [place] [address], [place] [address] 10 Mar, 2014 [facility] [address] [id number] [address] [place] [address], [place] [address] 10 Mar, 2014 [facility] [address] [id number] [address] [place] [address], [place] [address] 10 Mar, 2014 [facility] [address] [id number] [address] [place] [address], [place] [address] 10 Mar, 2014 [facility] [address] [id number] [address] [place] [address], [place] [address] Feb, [facility] [address] [id number] [address] [place] [address], [place] [address] Feb, [facility] [address] [id number] [address] [place] [address], [place] [address] Feb, [facility] [address] [id number] [address] [place] [address], [place] [address] Feb, [facility] [address] [id number] [address] [place] [address], [place] [address] 14 Jan, 2014 [facility] [address] [id number] [address] [place] [address], [place] [address] 14 Jan, 2014 [facility] [address] [id number] [address] [place] [address], [place] [address] 14 Jan, 2014 [facility] [address] [id number] [address] [place] [address], [place] [address] 14 Jan, 2014 [facility] [address] [id number] [address] [place] [address], [place] [address] 22 Dec, 2013 [facility] [address] [id number] [address] [place] [address], [place] [address] 22 Dec, 2013 [facility] [address] [id number] [address] [place] [address], [place] [address] Dec, [facility] [address] [id number] [address] [place] [address], [place] [address] Dec, [facility] [address] [id number] [address] [place] [address], [place] [address] Nov, [facility] [address] [id number] [address] [place] [address], [place] [address] Nov, [facility] [address] [id number] [address] [place] [address], [place] [address] Nov, [facility] [address] [id number] [address] [place] [address], [place] [address] Nov, [facility] [address] [id number] [address] [place] [address], [place] [address] Nov, [facility] [address] [id number] [address] [place] [address], [place] [address] Nov, [facility] [address] [id number] [address] [place] [address], [place] [address] Nov, [facility] [address] [id number] [address] [place] [address], [place] [address] Oct, [facility] [address] [id number] [address] [place] [address], [place] [address] Oct, [facility] [address] [id number] [address] [place] [address], [place] [address] Oct, [facility] [address] [id number] [address] [place] [address], [place] [address] Oct, [facility] [address] [id number] [address] [place] [address], [place] [address] Oct, [facility] [address] [id number] [address] [place] [address], [place] [address] Oct, [facility] [address] [id number] [address] [place] [address], [place] [address] Oct, [facility] [address] [id number] [address] [place] [address], [place] [address] Sep, [facility] [address] [id number] [facility] [place] [address] 17 Sep, 2013 [facility] [address] [id number] [address] [place] [address], [place] [address] Sep, [facility] [address] [id number] [address] [place] [address], [place] [address] Sep, [facility] [address] [id number] [address] [place] [address], [place] [address] Sep, [facility] [address] [id number] [address] [place] [address], [place] [address] Jul, [facility] [address] [id number] [address] [place] [address], [place] [address] Jul, [facility] [address] [id number] [address] [place] [address], [place] [address] Jul, [facility] [address] [id number] [address] [place] [address], [place] [address] Jul, [facility] [address] [id number] [address] [place] [address], [place] [address] Jul, [facility] [address] [id number] [address] [place] [address], [place] [address] Jul, [facility] [address] [id number] [address] [place] [address], [place] [address] Jul, [facility] [address] [id number] [address] [place] [address], [place] [address] Jul, [facility] [address] [id number] [address] [place] [address], [place] [address] Jul, [facility] [address] [id number] [address] [place] [address], [place] [address] Jul, [facility] [address] [id number] [address] [place] [address], [place] [address] Jul, [facility] [address] [id number] [address] [place] [address], [place] [address] Jul, [facility] [address] [id number] [address] [place] [address], [place] [address] Jun, [facility] [address] [id number] [address] [place] [address], [place] [address] Jun, [facility] [facility] [address] [id number] [address] [place] [address], [place] [address] Jun, [facility] [address] [id number] [address] [place] [address], [place] [address] Jun, [facility] [address] [id number] [address] [place] [address], [place] [address] Jun, [facility] [address] [id number] [address] [place] [address], [place] [address] Jun, [facility] [address] [id number] [address] [place] [address], [place] [address] Jun, [facility] [address] [id number] [address] [place] [address], [place] [address] Jun, [facility] [address] [id number] [address] [place] [address], [place] [address] May, [facility] [address] [id number] [address] [place] [address], [place] [address] May, [facility] [address] [id number] [address] [place] [address], [place] [address] May, [facility] [address] [id number] [address] [place] [address], [place] [address] May, [facility] [address] [id number] [address] [place] [address], [place] [address] May, [facility] [address] [id number] [address] [place] [address], [place] [address] May, [facility] [address] [id number] [address] [place] [address], [place] [address] May, [facility] [address] [id number] [address] [place] [address], [place] [address] May, [facility] [address] [id number] [address] [place] [address], [place] [address] Apr, [facility] [address] [id number] [address] [place] [address], [place] [address] Apr, [facility] [address] [id number] [address] [place] [address], [place] [address] Apr, [facility] [address] [id number] [address] [place] [address], [place] [address] Apr, [facility] [address] [id number] [address] [place] [address], [place] [address] Mar, [facility] [address] [id number] [address] [place] [address], [place] [address] Mar, [facility] [address] [id number] [address] [place] [address], [place] [address] Mar, [facility] [address] [id number] [address] [place] [address], [place] [address] Feb, [facility] [address] [id number] [address] [place] [address], [place] [address] Feb, [facility] [address] [id number] [address] [place] [address], [place] [address] Feb, [facility] [address] [id number] [address] [place] [address], [place] [address] Feb, [facility] [address] [id number] [address] [place] [address], [place] [address] Feb, [facility] [address] [id number] [address] [place] [address], [place] [address] Feb, [facility] [address] [id number] [address] [place] [address], [place] [address] Jan, [facility] [address] [id number] [address] [place] [address], [place] [address] Jan, [facility] [address] [id number] [address] [place] [address], [place] [address] Jan, [facility] [address] [id number] [address] [place] [address], [place] [address] Jan, [facility] [address] [id number] [address] [place] [address], [place] [address] Jan, [facility] [address] [id number] [address] [place] [address], [place] [address] Jan, [facility] [address] [id number] [address] [place] [address], [place] [address] Jan, [facility] [address] [id number] [address] [place] [address], [place] [address] Dec, [facility] [address] [id number] [address] [place] [address], [place] [address] 16 Dec, 2012 [facility] [address] [id number] [address] [place] [address], [place] [address] Dec, [facility] [address] [id number] [address] [place] [address], [place] [address] 05 Dec, 2012 [facility] [address] [id number] [address] [place] [address], [place] [address] Nov, [facility] [address] [id number] [address] [place] [address], [place] [address] Nov, [facility] [address] [id number] [address] [place] [address], [place] [address] Nov, [facility] [address] [id number] [address] [place] [address], [place] [address] Nov, [facility] [address] [id number] [address] [place] [address], [place] [address] Nov, [facility] [address] [id number] [address] [place] [address], [place] [address] Nov, [facility] [address] [id number] [address] [place] [address], [place] [address] Nov, [facility] [address] [id number] [address] [place] [address], [place] [address] Oct, [facility] [address] [id number] [address] [place] [address], [place] [address] Oct, [facility] [address] [id number] [address] [place] [address], [place] [address] Oct, [facility] [address] [id number] [address] [place] [address], [place] [address] Oct, [facility] [address] [id number] [address] [place] [address], [place] [address] Oct, [facility] [address] [id number] [address] [place] [address], [place] [address] Oct, [facility] [address] [id number] [address] [place] [address], [place] [address] Oct, [facility] [address] [id number] [address] [place] [address], [place] [address] Oct, [facility] [address] [id number] [address] [place] [address], [place] [address] Sep, [id number] [id number] [id number] August, [facility] [address] [id number] [address] [place] [address] August, [facility] [address] [id number] [address] [place] [address], [place] [address] Jul, [facility] [address] [id number] [address] [place] [address], [place] [address] Jul, [facility] [address] [id number] [address] [place] [address], [place] [address] Jul, [facility] [address] [id number] [address] [place] [address], [place] [address] 22 Jul, 2012 [facility] [address] [id number] [address] [place] [address], [place] [address] 18 Jul, 2012 [facility] [address] [id number] [address] [place] [address], [place] [address] 17 Jul, 2012 [facility] [address] [id number] [address] [place] [address], [place] [address] 16 Jul, 2012 [facility] [address] [id number] [address] [place] [address], [place] [address] 21 Jun, 2012 [facility] [address] [id number] [address] [place] [address], [place] [address] 18 Jun, 2012 [facility] [address] [id number] [address] [place] [address], [place] [address] 11 Jun, 2012 [facility] [address] [id number] [address] [place] [address], [place] [address] 04 Jun, 2012 [facility] [address] [id number] [address] [place] [address], [place] [address] 04 Jun, 2012 [facility] [address] [id number] [address] [place] [address], [place] [address] 19 May, 2012 [facility] [address] [id number] [address] [place] [address], [place] [address] 18 May, 2012 [facility] [address] [id number] [address] [place] [address], [place] [address] 04 May, 2012 [facility] [address] [id number] [address] [place] [address], [place] [address] 15 Apr, 2012 [facility] [address] [id number] [address] [place] [address], [place] [address] 14 Apr, 2012 [facility] [address] [id number] [address] [place] [address], [place] [address] 07 Apr, 2012 [facility] [address] [id number] [address] [place] [address], [place] [address] Mar, [facility] [address] [id number] [address] [place] [address], [place] [address] Mar, [facility] [address] [id number] [address] [place] [address], [place] [address] Mar, [facility] [address] [id number] [address] [place] [address], [place] [address] Mar, [facility] [address] [id number] [address] [place] [address], [place] [address] Mar, [facility] [address] [id number] [address] [place] [address], [place] [address] Mar, [facility] [address] [id number] [address] [place] [address], [place] [address] Feb, [facility] [address] [id number] [address] [place] [address], [place] [address] Feb, [facility] [address] [id number] [address] [place] [address], [place] [address] Jan, [facility] [address] [id number] [address] [place] [address], [place] [address] Jan, [facility] [address] [id number] [address] [place] [address], [place] [address] Dec, [facility] [address] [id number] [address] [place] [address], [place] [address] Nov, [facility] [address] [id number] [address] [place] [address], [place] [address] Nov, [facility] [address] [id number] [address] [place] [address], [place] [address] Nov, [facility] [address] [id number] [address] [place] [address], [place] [address] Nov, [facility] [address] [id number] [address] [place] [address], [place] [address] Oct, [facility] [address] [id number] [address] [place] [address], [place] [address] Oct, [facility] [address] [id number] [address] [place] [address], [place] [address] Oct, [facility] [address] [id number] [address] [place] [address], [place] [address] 15 Sep, 2011 [facility] [address] [id number] [address] [place] [address], [place] [address] Sep, [facility] [address] [id number] [address] [place] [address], [place] [address] Sep, [facility] [address] [id number] [address] [place] [address], [place] [address] August, [facility] [address] [id number] [address] [place] [address], [place] [address] August, [facility] [address] [id number] [address] [place] [address], [place] [address] Jul, [facility] [address] [id number] [address] [place] [address], [place] [address] 24 Jul, 2011 [facility] [address] [id number] [address] [place] [address], [place] [address] Jul, [facility] [address] [id number] [address] [place] [address], [place] [address] Jul, [facility] [address] [id number] [address] [place] [address], [place] [address] Jun, [facility] [address] [id number] [address] [place] [address], [place] [address] May, [facility] [address] [id number] [address] [place] [address], [place] [address] Apr, [facility] [address] [id number] [address] [place] [address], [place] [address] Apr, [facility] [address] [id number] [address] [place] [address], [place] [address] Apr, [facility] [address] [id number] [address] [place] [address], [place] [address] Apr, [facility] [address] [id number] [address] [place] [address], [place] [address] Apr, [facility] [address] [id number] [address] [place] [address], [place] [address] Apr, [facility] [address] [id number] [address] [place] [address], [place] [address] Mar, [facility] [address] [id number] [address] [place] [address], [place] [address] Mar, [facility] [address] [id number] [address] [place] [address], [place] [address] Feb, [facility] [address] [id number] [address] [place] [address], [place] [address] Feb, [facility] [address] [id number] [address] [place] [address], [place] [address] Feb, [facility] [address] [id number] [address] [place] [address], [place] [address] Feb, [facility] [address] [id number] [address] [place] [address], [place] [address] Jan, [facility] [address] [id number] [address] [place] [address], [place] [address] Jan, [facility] [address] [id number] [address] [place] [address], [place] [address] Jan, [facility] [address] [id number] [address] [place] [address], [place] [address] Jan, [facility] [address] [id number] [address] [place] [address], [place] [address] Nov, [facility] [address] [id number] [address] [place] [address], [place] [address] Mar, [facility] [address] [id number] [address] [place] [address], [place] [address] 02 Mar, 2010 [facility] [address] [id number] [address] [place] [address], [place] [address] 30 Feb, 2010 [facility] [address] [id number] [address] [place] [address], [place] [address] 15 Feb, 2010 [facility] [address] [id number] [address] [place] [address], [place] [address] 19 Jan, 2010 [facility] [address] [id number] [address] [place] [address], [place] [address] 19 Jan, 2010 [facility] [address] [id number] [address] [place] [address], [place] [address] 15 Sep, 2009 [facility] [address] [id number] [address] [place] [id number] 16 May, 2009 [facility] [address] [id number] [address] [place] [address], [place] [address] Apr, [facility] [address] [id number] [address] [place] [phone] Mar, [facility] [address] [id number] [address] [place] [id number] 15 Feb, 2009 [facility] [address] [id number] [address] [place] [phone] 10 Feb, 2009 [facility] [address] [id number] [address] [place] [phone] 10 Feb, 2009 [facility] [address] [id number] [address] [place] [id number] 22 Jan, 2009 [facility] [address] [id number] [address] [place] [id number] 13 Jan, 2009 [facility] [address] [id number] [address] [place] [id number] 13 Jan, 2009 [facility] [address] [id number] [address] [place] [phone] 11 Jan, 2009 [facility] [address] [id number] [facility] [place] [address] August, IMMUNIZATIONS No Known Immunizations SOCIAL HISTORY Never Assessed REASON FOR VISIT Refill request PLAN OF CARE VITAL SIGNS MEDICATIONS Medication Instructions Dosage Frequency Start Date End Date Duration S tatus TRUEplus Lancets 33G - test blood sugar 12h Jan, Active RESULTS No Results PROCEDURES No Known [...] age 6 Hospitalization History surgery Hospitalization History [facility], [facility] treatment few times for BH
--- OUTSIDE RECORDS SUMMARY | 2019-09-29 11:07 | XMS REPORT ---
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 Active 78164760 Problem Intermittent explosive disorder F63.81 Active 80140925 Assessment Diabetes E11.9 Mar, Active 161434 007 Problem Reactive airway disease, unspecified asthma justin jamilay, uncomplicated J45.909 Active 852595505661 Problem Essential hypertension I10 Active 42305008 Problem Obstructive sleep apnea G47.33 Active 02107438 Problem Bipolar disorder, in partial remission, most rec ent episode manic F31.73 Active 97063066 Problem Intermittent explosive disorder in adult F63.81 Active 29193964 Problem Mild mental retardation F70 Active 21893838 Problem Adjustment disorder, unspecified type F43.20 Active 73630126 Problem Diabetes E11.9 Active 55828379 Problem Depression F32.9 Active 92696088 ALLERGIES Substance Reaction Event Type Date Status N.K.D.A. Unknown Non Drug Allergy Mar, Unknown SOCIAL HISTORY No smoking Hx information available PLAN OF CARE VITAL SIGNS Height 65 in 2016-03-27 Weight 211 lbs 2016-03-27 Heart Rate 92 bpm 2016-03-27 Respiratory Rate 20 2016-03-27 BMI 35.11 kg/m2 2016-03-27 Blood pressure systolic 100 mmHg 2016-03-27 Blood pressure diastolic 70 mmHg 2016-03-27 MEDICATIONS Medication Instructions Dosage Frequency Start Date End Date Duration S tatus Quetiapine Fumarate 100 MG Orally in am Once a day 1 tablet 24h 30 days Active GlyBURIDE 2.5 MG Orally 2 times a day 0.5 tablet 12h 31 Active Toviaz 8 MG Orally Once a day 1 tablet 24h A ctive Test strips N/A test blood sugar 12h Active GNP Natural Fiber 0.52 GM TAKE 3 CAPSULES ORALLY DAILY [5PM] 31 Active Abilify 5 MG Orally Once a day 1 tablet 24h 30 days Active Pulmicort Flexhaler 90 MCG/ACT Inhalation Twice a day sample given 2 puff Dec, Active Folic Acid 1 MG take 0.5 tablet by Oral route 1 time per day 31 Active Omeprazole 20 MG Orally 2 times a day 1 capsule 12h 30 Active Singulair 10 mg Orally Once a day at hs and take Zyrtec in AM 1 tablet in the evening Oct, Active Tamsulosin HCl 0.4 MG TAKE TWO CAPSULES ORALLY DAILY 30 MINUTES AFTER THE SAME MEAL EACH DAY 30 Active Diovan HCT 80-12.5 MG Orally Once a day 1 tablet 24h 30 Active Ventolin HFA 90 mcg/actuation inhale 2 p uff by Inhalation route as needed 1 time per day Q hs and PRN Dec, Ac tive Depakote ER 250 MG Orally in the morning 1 tablet Dec, 30 days Active ZyrTEC 10 mg by oral route Once a day 1 tablet 24h Active Metoprolol Tartrate 25 MG Orally Twice a day 1 tablet with food 12h 30 Active Seroquel 300 MG Orally at bedtime Once a day 1 tablet 24h 30 days Active Albuterol Sulfate 2.5 mg /3 mL (0.083 %) 1 Each by Inhalation route 4 times per day for cough and wheeze PRN for wheezing or cough Dec, 4 Active Simvastatin 20 MG TAKE ONE TABLET ORALLY EVERY NIGHT AT BEDTIME 31 Active Depakote ER 500 MG Orally in the morning 1 tablet Dec, 30 days Active desmopressin 0.2 mg 3 Tablet by Oral route 1 time per day qHS Jul, 30 days Active RESULTS Name Result Date Reference Range A1C (IN HOUSE) 2016-03-27 A1C IN HOUSE 7.3 4.3 - 5.6 % Previous A1c 6.8 Lot [id number] Exp date 12/2017 PROCEDURES Procedure Date Ordered Related Diagnosis Body Site TRIM NAIL(S) 2016-03-27 N/A GLYCATED HEMOGLOBIN TEST Mar 27, 2016 Office Visit, Est Pt., Level 3 Mar 27, 2016 TRIM NAIL(S) Mar 27, 2016 IMMUNIZATIONS No Known Immunizations
--- OUTSIDE RECORDS SUMMARY | 2019-09-29 11:07 | XMS REPORT ---
Author Author Cameron ALANIZ Organization 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 Name Role Phone JEET ALANIZ Unavailable PROBLEMS Type Condition ICD9-CM Code BSZ10-LR Code Onset Dates Condition S tatus SNOMED Code Problem Essential hypertension I10 Active 10060241 Problem Diabetes E11.9 Active 40464817 Problem Depression F32.9 Active 18556739 Problem Gastroesophageal reflux disease without esophagitis K21.9 Active 202231470 Problem Reactive airway disease, mild intermittent, uncomplicated J45.20 Active 242657599 Problem Intermittent explosive disorder in adult F63.81 Active 29800871 Problem Bipolar disorder, in partial remission, most rec ent episode manic F31.73 Active 25965636 Problem Mild intellectual disability F70 A ctive 48057992 Problem Bipolar disorder, unspecified F31.9 Active 81269497 Problem 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 Active 67255018 Problem Reactive airway disease, unspecified asthma justin rity, uncomplicated J45.909 Active 549947457205 Problem Hypertensive retinopathy of both eyes H35.033 Active 6554809 Problem Type 2 diabetes mellitus with complication E11.8 Active 76945710 Problem Adjustment disorder, unspecified type F43.20 Active 27184992 Problem Intermittent explosive disorder F63.81 Active 12251699 Problem Open-angle glaucoma of both eyes, unspecified glaucoma stage, unspecified open-angle glaucoma type H40.10X0 Acti ve 07307134 Problem Obstructive sleep apnea G47.33 Active 16227581 ALLERGIES No Information ENCOUNTERS Encounter Location Date Diagnosis [facility] [address] [facility] [id number] [address] [place] [id number] Oct, [facility] [address] [facility] [id number] [address] [place] [phone] Sep, [facility] [address] [id number] [address] [place] [id number] Jul, [facility] [address] [facility] [id number] [address] [place] [phone] May, Mild intellectual disability F70 [facility] [address] [facility] [id number] [address] [place] [address] May, Mild intellectual disability F70 ; High risk medication use Z79.899 ; Intermittent explosive disorder in adult F63.81 and Bipolar disorder, unspecified F31.9 [facility] [address] [facility] [id number] [address] [place] [id number] May, [facility] [address] [facility] [id number] [address] [place] [id number] May, [facility] [address] [facility] [id number] [address] [place] [phone] Apr, Type 2 diabetes mellitus wit h complication E11.8 ; Mild intellectual disability F70 ; Gastroesophageal reflux disease without esophagitis K21.9 ; Reactive airway disease, mild intermittent, uncomplicated J45.[address]0 [facility] [address] [facility] [id number] [address] [place] [phone] Apr, High risk medication use Z79 .899 ; Mild intellectual disability F70 ; Intermittent explosive disorder in adult F63.81 and Bipolar disorder, unspecified F31.9 [facility] [address] [place] [id number] [address] [place] [phone] Mar, Encounter for dental exam an d cleaning w/o abnormal findings Z01.20 [facility] [address] [id number] [address] [place] [id number] Mar, Dental examination Z01.20 [facility] [address] [id number] [address] [place] [id number] 12 Jan, 2017 [facility] [address] [facility] [id number] [address] [place] [id number] Jan, [facility] [address] [id number] [address] [place] [id number] 10 Jan, 2017 Mild intellectual disability F70 ; Bipolar disorder, unspecified F31.9 and Intermittent explosive disorder in adult F63.81 [facility] [address] [id number] [address] [place] [phone] 02 Jan, 2017 Diabetes E11.9 [facility] [address] [id number] [address] [place] [address] [id number] 13 Dec, 2016 Encounter for dental examina tion and cleaning without abnormal findings Z01.20 [facility] [address] [id number] [address] [place] [id number] 12 Dec, 2016 Bipolar disorder, unspecifie d F31.9 ; Intermittent explosive disorder in adult F63.81 and Mild intellectual disability F70 [facility] [address] [id number] [address] [place] [phone] Nov, Diabetes E11.9 [facility] [address] [id number] [address] [place] [phone] Nov, [facility] [address] [id number] [address] [place] [phone] Nov, Diabetes E11.9 and Colon can cer screening Z12.[id number] [place] [address] [id number] Sep, Dental examination Z01.20 [facility] [address] [id number] [address] [place] [id number] Sep, Encounter for dental examina tion and cleaning without abnormal findings Z01.20 [facility] [address] [id number] [address] [place] [id number] 13 Sep, 2016 Bipolar disorder, unspecifie d F31.9 [facility] [address] [id number] [address] [place] [phone] 12 Sep, 2016 Bipolar disorder, unspecifie d F31.9 [facility] [address] [id number] [address] [place] [id number] Jul, [facility] [address] [id number] [address] [place] [phone] Jul, Type 2 diabetes mellitus wit h complication E11.8 [facility] [address] [id number] [address] [place] [address] [id number] 15 Jun, 2016 Encounter for dental examina tion and cleaning without abnormal findings Z01.[address] [place] [id number] [place] [address] [id number] 15 Jun, [address] [facility] [address] [id number] [address] [place] [id number] 18 Apr, [address] [facility] [address] [id number] [address] [place] [id number] 14 Mar, 2016 Bipolar disorder, in partial remission, most recent episode manic F31.73 and Intermittent explosive disorder in adult F63.81 [facility] [address] [id number] [address] [place] [phone] 08 Mar, 2016 [facility] [address] [facility] [id number] [address] [place] [phone] Mar, Diabetes E11.9 [facility] [address] [id number] [address] [place] [phone] Feb, Encounter for dental examina tion and cleaning without abnormal findings Z01.20 [facility] [address] [id number] [address] [place] [phone] 22 Dec, 2015 Nocturnal hypoxemia G47.34 a nd Encounter for immunization Z23 [facility] [address] [id number] [address] [place] [phone] [address], [address] [facility] [address] [id number] [address] [place] [phone] Dec, [facility] [address] [facility] [id number] [address] [place] [phone] Dec, Bipolar disorder, unspecifie d F31.9 [facility] [address] [id number] [place] [id number] Oct, Encounter for dental examina tion and cleaning without abnormal findings Z01.20 [facility] [address] [id number] [place] [id number] 13 Oct, [address] [facility] [address] [facility] [id number] [address] [place] [id number] 07 Oct, [address] [facility] [address] [facility] [id number] [address] [place] [phone] Oct, Diabetes E11.9 ; Reactive ai rway disease, mild intermittent, uncomplicated J45.20 [address] Tobacco abuse Z72.0 [facility] [address] [place] [id number] [address] [place] [phone] Sep, Bipolar disorder, unspecifie d F31.[address] [facility] [address] [facility] [id number] [address] [place] [phone] Sep, [facility] [address] [id number] August, Tinea pedis of both feet B35 .3 and DM w/o complication type II, uncontrolled E11.65 [facility] [address] [place] [id number] [address] [place] [phone] Jul, [facility] [address] [facility] [id number] [address] [place] [phone] Jul, [facility] [address] [facility] [id number] [address] [place] [phone] Jul, Obstructive sleep apnea G47. 33 [facility] [address] [facility] [id number] [address] [place] [phone] Jun, Diabetes E11.9 [facility] [address] [facility] [id number] [address] [place] [phone] Jun, [facility] [address] [phone] Jun, [place] [address] [id number] Jun, Bipolar disorder, unspecifie d F31.9 and Mental retardation F79 [place] [address] [phone] Apr, [place] [address] [address] Feb, Diabetes E11.9 ; Encounter f or immunization Z23 ; Cough R05 and Nicotine abuse Z72.[address] [phone] Jan, Bipolar disorder, unspecifie d F31.9 and Diabetes mellitus without mention of complication, type II or unspecified type, uncontrolled 250.02 [place] [address] [address] Jan, [place] [address] [address] Dec, Reactive airway disease 493. 90 and Enuresis 788.30 [place] [address] [id number] Dec, [place] [address] [address] Nov, [place] [address] [address] Nov, [place] [address] [address] Nov, Annual physical exam V70.0 ; Urinary incontinence 788.30 ; Diabetes 250.00 and Hypertension 401.9 [place] [address] [id number] Oct, Diabetes mellitus without me ntion of complication, type II or unspecified type, uncontrolled 250.02 [facility] [address] [id number] [address] [place] [phone] Oct, Diabetes mellitus without me ntion of complication, type II or unspecified type, uncontrolled 250.02 [facility] [address] [id number] [address] [place] [id number] Oct, Diabetes mellitus without me ntion of complication, type II or unspecified type, uncontrolled 250.02 [facility] [address] [id number] [address] [place] [phone] Oct, [facility] [address] [id number] [address] [place] [phone] Oct, [facility] [address] [id number] [address] [place] [phone] Oct, Bipolar disorder, unspecifie d 296.80 [facility] [address] [id number] [address] [place] [address] [id number] Sep, Dental examination V72.2 [facility] [address] [id number] [address] [place] [phone] August, [facility] [address] [id number] [address] [place] [address] [id number] August, Dental examination V72.2 [facility] [address] [id number] [address] [place] [phone] August, [facility] [address] [id number] [address] [place] [phone] Jul, [facility] [address] [id number] [address] [place] [phone] Jul, [facility] [address] [id number] [address] [place] [id number] Jun, [facility] [address] [id number] [address] [place] [phone] Jun, [facility] [address] [id number] [address] [place] [phone] Jun, 2014 [facility] [address] [id number] [address] [place] [address], [place] [address] Jun, [facility] [address] [id number] [address] [place] [address], [place] [address] 23 May, 2014 [facility] [address] [id number] [address] [place] [address], [place] [address] 23 May, 2014 [facility] [address] [id number] [address] [place] [address], [place] [address] 16 May, 2014 [facility] [address] [id number] [address] [place] [address], [place] [address] 16 May, 2014 [facility] [address] [id number] [address] [place] [address], [place] [address] 16 May, 2014 [facility] [address] [id number] [address] [place] [address], [place] [address] 16 May, 2014 [facility] [address] [id number] [address] [place] [address], [place] [address] 16 May, 2014 [facility] [address] [id number] [address] [place] [address], [place] [address] 16 May, 2014 [facility] [address] [id number] [address] [place] [address], [place] [address] 16 May, 2014 [facility] [address] [id number] [address] [place] [address], [place] [address] 16 May, 2014 [facility] [address] [id number] [address] [place] [address], [place] [address] 16 May, 2014 [facility] [address] [id number] [address] [place] [address], [place] [address] 16 May, 2014 [facility] [address] [id number] [address] [place] [address], [place] [address] 16 May, 2014 [facility] [address] [id number] [address] [place] [address], [place] [address] May, [facility] [address] [id number] [address] [place] [address], [place] [address] May, [facility] [address] [id number] [address] [place] [address], [place] [address] Apr, [facility] [address] [id number] [address] [place] [address], [place] [address] Apr, [facility] [address] [id number] [address] [place] [address], [place] [address] Apr, [facility] [address] [id number] [address] [place] [address], [place] [address] Apr, [facility] [address] [id number] [address] [place] [address], [place] [address] Apr, [facility] [address] [id number] [address] [place] [address], [place] [address] Apr, [facility] [address] [id number] [address] [place] [address], [place] [address] Apr, [facility] [address] [id number] [address] [place] [address], [place] [address] Apr, [facility] [address] [id number] [address] [place] [address], [place] [address] Apr, [facility] [address] [id number] [address] [place] [address], [place] [address] Apr, [facility] [address] [id number] [address] [place] [phone] Apr, [facility] [address] [id number] [address] [place] [address], [place] [address] Apr, [facility] [address] [id number] [address] [place] [address], [place] [address] Mar, [facility] [address] [id number] [address] [place] [address], [place] [address] Mar, [facility] [address] [id number] [address] [place] [address], [place] [address] 10 Mar, 2014 [facility] [address] [id number] [address] [place] [address], [place] [address] 10 Mar, 2014 [facility] [address] [id number] [address] [place] [address], [place] [address] 10 Mar, 2014 [facility] [address] [id number] [address] [place] [address], [place] [address] 10 Mar, 2014 [facility] [address] [id number] [address] [place] [address], [place] [address] 13 Feb, 2014 [facility] [address] [id number] [address] [place] [address], [place] [address] Feb, [facility] [address] [id number] [address] [place] [address], [place] [address] Feb, [facility] [address] [id number] [address] [place] [address], [place] [address] Feb, [facility] [address] [id number] [address] [place] [address], [place] [address] 14 Jan, 2014 [facility] [address] [id number] [address] [place] [address], [place] [address] 14 Jan, 2014 [facility] [address] [id number] [address] [place] [address], [place] [address] 14 Jan, 2014 [facility] [address] [id number] [address] [place] [address], [place] [address] 14 Jan, 2014 [facility] [address] [id number] [address] [place] [address], [place] [address] 22 Dec, 2013 [facility] [address] [id number] [address] [place] [address], [place] [address] 22 Dec, 2013 [facility] [address] [id number] [address] [place] [address], [place] [address] 15 Dec, 2013 [facility] [address] [id number] [address] [place] [address], [place] [address] 15 Dec, 2013 [facility] [address] [id number] [facility] [place] [address] Nov, [facility] [address] [id number] [facility] [place] [address] Nov, [facility] [address] [id number] [facility] [place] [address] Nov, [facility] [address] [id number] [facility] [place] [address] Nov, [facility] [address] [id number] [facility] [place] [address] Nov, [facility] [address] [id number] [address] [place] [address], [place] [address] Nov, [facility] [address] [id number] [address] [place] [address], [place] [address] Nov, [facility] [address] [id number] [address] [place] [address], [place] [address] Oct, [facility] [address] [id number] [address] [place] [address], [place] [address] Oct, [facility] [address] [id number] [address] [place] [address], [place] [address] Oct, [facility] [address] [id number] [address] [place] [address], [place] [address] Oct, [facility] [address] [id number] [address] [place] [address], [place] [address] Oct, [facility] [address] [id number] [address] [place] [address], [place] [address] Oct, [facility] [address] [id number] [address] [place] [address], [place] [address] Oct, [facility] [address] [id number] [address] [place] [address], [place] [address] Sep, [facility] [address] [id number] [address] [place] [address], [place] [address] Sep, [facility] [address] [id number] [facility] [place] [address] Sep, [facility] [address] [id number] [facility] [place] [address] Sep, [facility] [address] [id number] [address] [place] [address], [place] [address] Sep, [facility] [address] [id number] [address] [place] [address], [place] [address] Jul, [facility] [address] [id number] [address] [place] [address], [place] [address] Jul, [facility] [address] [id number] [address] [place] [address], [place] [address] Jul, [facility] [address] [id number] [address] [place] [address], [place] [address] Jul, [facility] [address] [id number] [address] [place] [address], [place] [address] Jul, [facility] [address] [id number] [address] [place] [address], [place] [address] Jul, [facility] [address] [id number] [address] [place] [address], [place] [address] Jul, [facility] [address] [id number] [address] [place] [address], [place] [address] Jul, [facility] [address] [id number] [address] [place] [address], [place] [address] Jul, [facility] [address] [id number] [address] [place] [address], [place] [address] Jul, [facility] [address] [id number] [address] [place] [address], [place] [address] Jul, [facility] [address] [id number] [address] [place] [address], [place] [address] Jul, [facility] [address] [id number] [facility] [place] [address] Jun, [facility] [address] [id number] [address] [place] [address], [place] [address] Jun, [facility] [address] [id number] [address] [place] [address], [place] [address] Jun, [facility] [address] [id number] [address] [place] [address], [place] [address] Jun, [facility] [address] [id number] [address] [place] [address], [place] [address] Jun, [facility] [address] [id number] [address] [place] [address], [place] [address] Jun, [facility] [address] [id number] [address] [place] [address], [place] [address] Jun, [facility] [address] [id number] [address] [place] [address], [place] [address] Jun, [facility] [address] [id number] [address] [place] [address], [place] [address] May, [facility] [address] [id number] [address] [place] [address], [place] [address] May, [facility] [address] [id number] [address] [place] [address], [place] [address] May, [facility] [address] [id number] [address] [place] [address], [place] [address] May, [facility] [address] [id number] [address] [place] [address], [place] [address] May, [facility] [address] [id number] [address] [place] [address], [place] [address] May, [facility] [address] [id number] [address] [place], [place] [address], [place] [address] 18 May, 2013 [facility] [address] [id number] [address] [place] [address], [place] [address] May, [facility] [address] [id number] [address] [place] [address], [place] [address] Apr, [facility] [address] [id number] [address] [place] [address], [place] [address] Apr, [facility] [address] [id number] [address] [place] [address], [place] [address] Apr, [facility] [address] [id number] [address] [place] [address], [place] [address] Apr, [facility] [address] [id number] [address] [place] [address], [place] [address] Mar, [facility] [address] [id number] [address] [place] [address], [place] [address] Mar, [facility] [address] [id number] [address] [place] [address], [place] [address] Mar, [facility] [address] [id number] [address] [place] [address], [place] [address] Feb, [facility] [address] [id number] [address] [place] [address], [place] [address] Feb, [facility] [address] [id number] [address] [place] [address], [place] [address] Feb, [facility] [address] [id number] [address] [place] [address], [place] [address] Feb, [facility] [address] [id number] [address] [place] [address], [place] [address] Feb, [facility] [address] [id number] [address] [place] [address], [place] [address] Feb, [facility] [address] [id number] [address] [place] [address], [place] [address] Jan, [facility] [address] [id number] [address] [place] [address], [place] [address] Jan, [facility] [address] [id number] [address] [place] [address], [place] [address] Jan, [facility] [address] [id number] [address] [place] [address], [place] [address] Jan, [facility] [address] [id number] [address] [place] [address], [place] [address] Jan, [facility] [address] [id number] [address] [place] [address], [place] [address] Jan, [facility] [address] [id number] [address] [place] [address], [place] [address] Jan, [facility] [address] [id number] [address] [place] [address], [place] [address] Dec, [facility] [address] [id number] [address] [place] [address], [place] [address] 16 Dec, 2012 [facility] [address] [id number] [address] [place] [address], [place] [address] Dec, [facility] [address] [id number] [address] [place] [address], [place] [address] 05 Dec, 2012 [facility] [address] [id number] [address] [place] [address], [place] [address] Nov, [facility] [address] [id number] [address] [place] [address], [place] [address] Nov, [facility] [address] [id number] [address] [place] [address], [place] [address] Nov, [facility] [address] [id number] [address] [place] [address], [place] [address] Nov, [facility] [address] [id number] [address] [place] [address], [place] [address] Nov, [facility] [address] [id number] [address] [place] [address], [place] [address] Nov, [facility] [address] [id number] [address] [place] [address], [place] [address] Nov, [facility] [address] [id number] [address] [place] [address], [place] [address] Oct, [facility] [address] [id number] [address] [place] [address], [place] [address] Oct, [facility] [address] [id number] [address] [place] [address], [place] [address] Oct, [facility] [address] [id number] [address] [place] [address], [place] [address] Oct, [facility] [address] [id number] [address] [place] [address], [place] [address] Oct, [facility] [address] [id number] [address] [place] [address], [place] [address] Oct, [facility] [address] [id number] [address] [place] [address], [place] [address] Oct, [facility] [address] [id number] [address] [place] [address], [place] [address] Oct, [facility] [address] [id number] [address] [place] [address], [place] [address] Sep, Suleiman PEREZ [id number] [place] [id number] August, [facility] [address] [id number] [address] [place] [address], [place] [address] August, [facility] [address] [id number] [address] [place] [address], [place] [address] Jul, [facility] [address] [id number] [address] [place] [address], [place] [address] Jul, [facility] [address] [id number] [address] [place] [address], [place] [address] Jul, [facility] [address] [id number] [address] [place] [address], [place] [address] Jul, [facility] [address] [id number] [address] [place] [address], [place] [address] 18 Jul, 2012 [facility] [address] [id number] [address] [place] [address], [place] [address] 17 Jul, 2012 [facility] [address] [id number] [address] [place] [address], [place] [address] 16 Jul, 2012 [facility] [address] [id number] [address] [place] [address], [place] [address] 21 Jun, 2012 [facility] [address] [id number] [address] [place] [address], [place] [address] 18 Jun, 2012 [facility] [address] [id number] [address] [place] [address], [place] [address] 11 Jun, 2012 [facility] [address] [id number] [address] [place] [address], [place] [address] 04 Jun, 2012 [facility] [address] [id number] [address] [place] [address], [place] [address] 04 Jun, 2012 [facility] [address] [id number] [address] [place] [address], [place] [address] 19 May, 2012 [facility] [address] [id number] [address] [place] [address], [place] [address] 18 May, 2012 [facility] [address] [id number] [address] [place] [address], [place] [address] 04 May, 2012 [facility] [address] [id number] [address] [place] [address], [place] [address] 15 Apr, 2012 [facility] [address] [id number] [address] [place] [address], [place] [address] 14 Apr, 2012 [facility] [address] [id number] [address] [place] [address], [place] [address] 07 Apr, 2012 [facility] [address] [id number] [address] [place] [address], [place] [address] Mar, [facility] [address] [id number] [address] [place] [address], [place] [address] Mar, [facility] [address] [id number] [address] [place] [address], [place] [address] Mar, [facility] [address] [id number] [address] [place] [address], [place] [address] Mar, [facility] [address] [id number] [address] [place] [address], [place] [address] Mar, [facility] [address] [id number] [address] [place] [address], [place] [address] Mar, [facility] [address] [id number] [address] [place] [address], [place] [address] Feb, [facility] [address] [id number] [address] [place] [address], [place] [address] Feb, [facility] [address] [id number] [address] [place] [address], [place] [address] Jan, [facility] [address] [id number] [address] [place] [address], [place] [address] Jan, [facility] [address] [id number] [address] [place] [address], [place] [address] Dec, [facility] [address] [id number] [address] [place] [address], [place] [address] Nov, [facility] [address] [id number] [address] [place] [address], [place] [address] Nov, [facility] [address] [id number] [address] [place] [address], [place] [address] Nov, [facility] [address] [id number] [address] [place] [address], [place] [address] Nov, [facility] [address] [id number] [address] [place] [address], [place] [address] Oct, [facility] [address] [id number] [address] [place] [address], [place] [address] Oct, [facility] [address] [id number] [address] [place] [address], [place] [address] Oct, [facility] [address] [id number] [address] [place] [address], [place] [address] 15 Sep, 2011 [facility] [address] [id number] [address] [place] [address], [place] [address] Sep, [facility] [address] [id number] [address] [place] [address], [place] [address] Sep, [facility] [address] [id number] [address] [place] [address], [place] [address] August, [facility] [address] [id number] [address] [place] [address], [place] [address] August, [facility] [address] [id number] [address] [place] [address], [place] [address] Jul, [facility] [address] [id number] [address] [place] [address], [place] [address] Jul, [facility] [address] [id number] [address] [place] [address], [place] [address] Jul, [facility] [address] [id number] [address] [place] [address], [place] [address] Jul, [facility] [address] [id number] [address] [place] [address], [place] [address] Jun, [facility] [address] [id number] [address] [place] [address], [place] [address] May, [facility] [address] [id number] [address] [place] [address], [place] [address] Apr, [facility] [address] [id number] [address] [place] [address], [place] [address] Apr, [facility] [address] [id number] [address] [place] [address], [place] [address] Apr, [facility] [address] [id number] [address] [place] [address], [place] [address] Apr, [facility] [address] [id number] [address] [place] [address], [place] [address] 17 Apr, 2011 [facility] [address] [id number] [address] [place] [address], [place] [address] Apr, [facility] [address] [id number] [address] [place] [address], [place] [address] Mar, [facility] [address] [id number] [address] [place] [address], [place] [address] Mar, [facility] [address] [id number] [address] [place] [address], [place] [address] Feb, [facility] [address] [id number] [address] [place] [address], [place] [address] Feb, [facility] [address] [id number] [address] [place] [address], [place] [address] Feb, [facility] [address] [id number] [address] [place] [address], [place] [address] Feb, [facility] [address] [id number] [address] [place] [address], [place] [address] Jan, [facility] [address] [id number] [address] [place] [address], [place] [address] Jan, [facility] [address] [id number] [address] [place] [address], [place] [address] Jan, [facility] [address] [id number] [address] [place] [address], [place] [address] Jan, [facility] [address] [id number] [address] [place] [address], [place] [address] Nov, [facility] [address] [id number] [address] [place] [address], [place] [address] Mar, [facility] [address] [id number] [address] [place] [address], [place] [address] Mar, [facility] [address] [id number] [address] [place] [address], [place] [address] Feb, [facility] [address] [id number] [address] [place] [address] 15 Feb, 2010 [facility] [address] [id number] [address] [place] [address] Jan, [facility] [address] [id number] [address] [place] [address] Jan, [facility] [address] [id number] [address] [place] [address] Sep, [facility] [address] [id number] [address] [place] [address] May, [facility] [address] [id number] [address] [place] [address] Apr, [facility] [address] [id number] [address] [place] [address] Mar, [facility] [address] [id number] [address] [place] [address] Feb, [facility] [address] [id number] [address] [place] [address] Feb, [facility] [address] [id number] [address] [place] [address] Feb, [facility] [address] [id number] [address] [place] [address] Jan, [facility] [address] [id number] [address] [place] [address] Jan, [facility] [address] [id number] [address] [place] [address] Jan, [facility] [address] [id number] [address] [place] [address] Jan, [facility] [address] [id number] [address] [place] [address] August, IMMUNIZATIONS No Known Immunizations SOCIAL HISTORY Never Assessed REASON FOR VISIT Refill request PLAN OF CARE VITAL SIGNS MEDICATIONS Medication Instructions Dosage Frequency Start Date End Date Duration S tatus GlyBURIDE 2.5 MG Orally 2 times a day 0.5 tablet 12h 31 Active Simvastatin 20 MG Orally Once a day 1 tablet at bedtime 24h 31 Active GNP Natural Fiber 0.52 GM [...] by oral route once daily 31 Active Metoprolol Tartrate 25 MG Orally Twice a day 1 tablet with food 12h 31 Active Depakote ER 500 MG Orally at bedtime once a day 1 tablet 24h 30 days Active Depakote ER 250 MG Orally in the morning 1 tablet 30 days Active Diovan HCT 80-12.5 MG Orally Once a day 1 tablet 24h 31 Active Singulair 10 mg Orally Once a day at hs and take Zyrtec in AM 1 tablet in the evening Oct, 31 Active Ventolin HFA 108 (90 Base) MCG/ACT Inhalation every 4 hrs 2 puffs a s needed 4h Active Cetirizine HCl 10 MG TAKE 1 TABLET ORALLY DAILY 31 Active Abilify 5 MG Orally Once a day 1 tablet 24h 30 days Active Folic Acid 1 MG take 0.5 tablet by Oral route 1 time per day 31 Active desmopressin 0.2 mg 3 Tablet by Oral route 1 time per day qHS Jul, 30 days Active Seroquel 300 MG Orally bedtime Once a day 1 tablet 24h 30 days Active TRUEtest Test - test blood sugar 12h Nov, Active Tamsulosin HCl 0.4 MG TAKE TWO CAPSULES ORALLY DAILY 30 MINUTES AFTER THE SAME MEAL EACH DAY 31 Active Omeprazole 20 MG Orally 2 times a day 1 capsule 12h 30 Active RESULTS No Results PROCEDURES No Known [...] age 6 Hospitalization History surgery Hospitalization History [facility], infl tie treatment few times for BH
--- OUTSIDE RECORDS SUMMARY | 2019-09-29 11:07 | XMS REPORT ---
Author Author Cameron JEFFERS Organization [facility] Address Unknown Care Team Providers Care High Risk Ob Name Role Phone VIRIDIANA JEFFERS Unavailable PROBLEMS Type Condition ICD9-CM Code CUZ03-QT Code Onset Dates Condition S tatus SNOMED Code Problem Essential hypertension I10 Active 83744057 Problem Type 2 diabetes mellitus with complication E11.8 Active 99219501 Problem Obstructive sleep apnea G47.33 Active 49260347 Assessment Bipolar disorder, unspecified F31.9 Dec, 016 Active 47981869 Problem Reactive airway disease, unspecified asthma justin abel, uncomplicated J45.909 Active 324271519006 Problem Diabetes E11.9 Active 75166312 Problem Depression F32.9 Active 64862213 Problem 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 Unknown Non Drug Allergy Dec, Unknown SOCIAL HISTORY No smoking Hx information available PLAN OF CARE VITAL SIGNS Height 65 in 2016-01-02 Weight 211.8 lbs 2016-01-02 Heart Rate 92 bpm 2016-01-02 Respiratory Rate 20 2016-01-02 BMI 35.24 kg/m2 2016-01-02 Blood pressure systolic 104 mmHg 2016-01-02 Blood pressure diastolic 76 mmHg 2016-01-02 MEDICATIONS Medication Instructions Dosage Frequency Start Date End Date Duration S tatus Depakote ER 250 MG Orally in the morning 1 tablet Dec, 30 days Active Seroquel 300 MG Orally at bedtime Once a day 1 tablet 24h 30 days Active Quetiapine Fumarate 100 MG Orally in am Once a day 1 tablet 24h 30 days Active Simvastatin 20 MG TAKE ONE TABLET ORALLY EVERY NIGHT AT BEDTIME 31 Active Depakote ER 500 MG Orally in the morning 1 tablet Dec, 30 days Active Folic Acid 1 MG take 0.5 tablet by Oral route 1 time per day 31 Active GlyBURIDE 2.5 MG Orally 2 times a day 0.5 tablet 12h 31 Active Abilify 5 MG Orally Once a day 1 tablet 24h 30 days Active GNP Natural Fiber 0.52 GM TAKE 3 CAPSULES ORALLY DAILY [5PM] 31 Active RESULTS No Results PROCEDURES Procedure Date Ordered Related Diagnosis Body Site Office Visit, Est Pt., Level 3 Jan 02, 2016 IMMUNIZATIONS No Known Immunizations
--- OUTSIDE RECORDS SUMMARY | 2019-09-29 11:07 | XMS REPORT ---
Author Author Cameron JEFFERS Organization [facility] Address Unknown Care Team Providers Care Machine Puller Name Role Phone VIRIDIANA JEFFERS Unavailable PROBLEMS Type Condition ICD9-CM Code LEW02-EP Code Onset Dates Condition S tatus SNOMED Code Problem Adjustment disorder, unspecified type F43.20 Active 88555026 Problem Depression F32.9 Active 45992640 Problem Mild mental retardation F70 Active 43282619 Problem Bipolar disorder, unspecified F31.9 Active 50192222 Problem Bipolar disorder, in partial remission, most rec ent episode manic F31.73 Active 58416542 Problem Hypertensive retinopathy of both eyes H35.033 Active 5330547 Problem Open-angle glaucoma of both eyes, unspecified glaucoma stage, unspecified open-angle glaucoma type H40.10X0 Acti ve 72502310 Problem Intermittent explosive disorder in adult F63.81 Active 33854449 Problem Diabetes E11.9 Active 38091372 Problem Obstructive sleep apnea G47.33 Active 11838031 Problem Type 2 diabetes mellitus with complication E11.8 Active 94833194 Problem Reactive airway disease, unspecified asthma justin rity, uncomplicated J45.909 Active 324270602590 Problem Intermittent explosive disorder F63.81 Active 99439406 Problem Essential hypertension I10 Active 02246284 Problem 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 Active 23390280 ALLERGIES Unknown Allergies SOCIAL HISTORY No smoking Hx information available PLAN OF CARE Activity Details Follow Up 3 Months Reason: VITAL SIGNS Height 65 in 2016-04-04 Weight 217 lbs 2016-04-04 BMI 36.11 kg/m2 2016-04-04 Blood pressure systolic 120 mmHg 2016-04-04 Blood pressure diastolic 74 mmHg 2016-04-04 MEDICATIONS Medication Instructions Dosage Frequency Start Date End Date Duration S tatus Singulair 10 mg Orally Once a day at hs and take Zyrtec in AM 1 tablet in the evening Oct, Active Toviaz 8 MG Orally Once a day 1 tablet 24h A ctive Abilify 5 MG Orally Once a day 1 tablet 24h 30 days Active desmopressin 0.2 mg 3 Tablet by Oral route 1 time per day [facility] Jul, 30 days Active ZyrTEC 10 mg by oral route Once a day 1 tablet 24h Active Actos 15 MG Orally Once a day 1 tablet 24h A ctive Omeprazole 20 MG Orally 2 times a day 1 capsule 12h 30 Active Simvastatin 20 MG TAKE ONE TABLET ORALLY EVERY NIGHT AT BEDTIME 31 Active GNP Natural Fiber 0.52 GM TAKE 3 CAPSULES ORALLY DAILY [5PM] 31 Active Seroquel 300 MG Orally at bedtime Once a day 1 tablet 24h 30 days Active Depakote ER 500 MG Orally in the morning 1 tablet Dec, 30 days Active Quetiapine Fumarate 100 MG Orally in am Once a day 1 tablet 24h 30 days Active Albuterol Sulfate 2.5 mg /3 mL (0.083 %) 1 Each by Inhalation route 4 times per day for cough and wheeze PRN for wheezing or cough Dec, 4 Active Depakote ER 250 MG Orally in the morning 1 tablet Dec, 30 days Active Metoprolol Tartrate 25 MG Orally Twice a day 1 tablet with food 12h 31 Active Tamsulosin HCl 0.4 MG TAKE TWO CAPSULES ORALLY DAILY 30 MINUTES AFTER THE SAME MEAL EACH DAY 30 Active GlyBURIDE 2.5 MG Orally 2 times a day 0.5 tablet 12h 31 Active Pulmicort Flexhaler 90 MCG/ACT Inhalation Twice a day sample given 2 puff Dec, Active Diovan HCT 80-12.5 MG Orally Once a day 1 tablet 24h 30 Active Folic Acid 1 MG take 0.5 tablet by Oral route 1 time per day 31 Active RESULTS No Results PROCEDURES Procedure Date Ordered Related Diagnosis Body Site Office Visit, Est Pt., Level 3 Apr 04, 2016 IMMUNIZATIONS No Known Immunizations
--- OUTSIDE RECORDS SUMMARY | 2019-09-29 11:07 | XMS REPORT | Continuity of Care Document ---
Author Author [facility] Organization [facility] Address Unknown Phone Unavailable Support Name Relationship Address Phone [facility] [place] [address] Insurance Providers Payer Name Policy Number Subscriber Name Relationship [facility] [id number] Cameron Zavala 01 Self / Same As Patient Problems No Known Problems or Medical conditions. Allergies, Adverse Reactions, Alerts Allergen Type Severity Reaction Last Updated No Known Drug Allergies 11/01/10 Medications Medication Dose Units Route Sig Qty Days Pioglitazone HCl (Actos) 1 Tab PO DAILY Risperidone (Risperidone Odt) 0.25 Mg PO DAILY Psyllium Husk/Ca Carbonate (Metamucil Plus Calcium Cap mary) 3 Cap PO DAILY Quetiapine Fumarate (Seroquel) 300 Mg PO HS Divalproex Sodium (Depakote) 1000 Mg PO DAILY Tolterodine Tartrate (Detrol La) 4 Mg PO DAILY Albuterol (Ventolin) 17 Gm IH PRN Simvastatin 20 Mg PO HS Metoprolol Succinate (Toprol Xl) 25 Mg PO DAILY Lansoprazole (Prevacid) 1 DAILY HCTZ/Valsartan (Diovan Hct 80-12.5 Mg Tablet) 1 Each PO DAILY Glyburide (Diabeta) 0.5 BID Response Recorded Date/Time Status not known Unknown Results No Known Relevant Diagnostic Tests, Laboratory Data and/or Discharge Summary. Procedures Procedure Code Date CYSTOSCOPY AND TREATMENT 62721 06/05/05 LESION REMOVE COLONOSCOPY 62310 12/12/05 Encounters Encounter Location Date/ Time Departed Emergency Room [facility] [place] 11/01/10 4:26pm
--- OUTSIDE RECORDS SUMMARY | 2019-09-29 11:08 | XMS REPORT | Continuity of Care Document ---
Demographics Preferred Language Unknown Marital Status Unknown Sabianist Affiliation Unknown Race Unknown Ethnic Group Unknown Author Organization Unknown Address Unknown Phone Unavailable Allergies Active Description Code Type Severity Reaction Onset Reported/Identified Relationship to Patient Clinical Status Yes No Known Drug Allergies [id number] Drug Allergy Unknown N/A 11/01/2010 Medications There is no data. Problems Date Dx Coded Attending Type Code Diagnosis Diagnosed By 03/21/1400 AL VIEYRA DO Ot Z01.818 ENCOUNTER FOR OTHER PREPROCEDURAL EXAMIN 03/21/1400 AL VIEYRA DO Ot Z11. 59 ENCOUNTER FOR SCREENING FOR OTHER VIRAL 01/07/2008 298.9 P PS YCHOSIS NOS 01/07/2008 311 MO DEP RESSIVE DISORDER NOS 01/07/2008 312.30 I I MPULSE CONTROL DISORDER NOS 01/07/2008 317 MILD M ENTAL RETARDATION 01/07/2008 298.9 P PS YCHOSIS NOS 01/07/2008 311 MO DEP RESSIVE DISORDER NOS 01/07/2008 312.30 I I MPULSE CONTROL DISORDER NOS 01/07/2008 317 MILD M ENTAL RETARDATION 01/07/2008 MUOGHALU DDS, DAMIÁN N 298.9 P PSYCHOSIS NOS 01/07/2008 MUOGHALU DDS, DAMIÁN N 311 MO DEPRESSIVE DISORDER NOS 01/07/2008 MUOGHALU DDS, DAMIÁN N 312.30 I IMPULSE CONTROL DISORDER NOS 01/07/2008 MUOGHALU DDS, DAMIÁN N 317 MILD MENTAL RETARDATION 01/07/2008 KATTY PLATE STRAIGHTENER, JEET S 298.9 P PSYCHOSIS NOS 01/07/2008 KATTY PLATE STRAIGHTENER, JEET S 311 MO DEPRESSIVE DISORDER NOS 01/07/2008 KATTY PLATE STRAIGHTENER, JEET S 312.30 I IMPULSE CONTROL DISORDER NOS 01/07/2008 KATTY PLATE STRAIGHTENER, JEET S 317 MILD MENTAL RETARDATION 01/07/2008 KATTY PLATE STRAIGHTENER, JEET S 298.9 P PSYCHOSIS NOS 01/07/2008 KATTY PLATE STRAIGHTENER, JEET S 311 MO DEPRESSIVE DISORDER NOS 01/07/2008 KATTY PLATE STRAIGHTENER, JEET S 312.30 I IMPULSE CONTROL DISORDER NOS 01/07/2008 JEET ALANIZ APRN S 317 MILD MENTAL RETARDATION 01/07/2008 298.9 P PS YCHOSIS NOS 01/07/2008 311 MO DEP RESSIVE DISORDER NOS 01/07/2008 312.30 I I MPULSE CONTROL DISORDER NOS 01/07/2008 317 MILD M ENTAL RETARDATION 01/07/2008 298.9 P PS YCHOSIS NOS 01/07/2008 311 MO DEP RESSIVE DISORDER NOS 01/07/2008 312.30 I I MPULSE CONTROL DISORDER NOS 01/07/2008 317 MILD M ENTAL RETARDATION 01/07/2008 298.9 P PS YCHOSIS NOS 01/07/2008 311 MO DEP RESSIVE DISORDER NOS 01/07/2008 312.30 I I MPULSE CONTROL DISORDER NOS 01/07/2008 317 MILD M ENTAL RETARDATION 01/07/2008 298.9 P PS YCHOSIS NOS 01/07/2008 311 MO DEP RESSIVE DISORDER NOS 01/07/2008 312.30 I I MPULSE CONTROL DISORDER NOS 01/07/2008 317 MILD M ENTAL RETARDATION 01/07/2008 298.9 P PS YCHOSIS NOS 01/07/2008 311 MO DEP RESSIVE DISORDER NOS 01/07/2008 312.30 I I MPULSE CONTROL DISORDER NOS 01/07/2008 317 MILD M ENTAL RETARDATION 01/07/2008 298.9 P PS YCHOSIS NOS 01/07/2008 311 MO DEP RESSIVE DISORDER NOS 01/07/2008 312.30 I I MPULSE CONTROL DISORDER NOS 01/07/2008 317 MILD M ENTAL RETARDATION 01/07/2008 WERDER DO, JULISA F 298 .9 P PSYCHOSIS NOS 01/07/2008 WERDER DO, JULISA F 311 MO DEPRESSIVE DISORDER NOS 01/07/2008 WERDER DO, JULISA F 312 .30 I IMPULSE CONTROL DISORDER NOS 01/07/2008 WERDER DO, JULISA F 317 MILD MENTAL RETARDATION 01/07/2008 JEET ALANIZ APRN S 298.9 P PSYCHOSIS NOS 01/07/2008 JEET ALANIZ APRN S 311 MO DEPRESSIVE DISORDER NOS 01/07/2008 JEET ALANIZ APRN 312.30 I IMPULSE CONTROL DISORDER NOS 01/07/2008 JEET ALANIZ APRN S 317 MILD MENTAL RETARDATION 01/07/2008 KATTY PLATE STRAIGHTENER, JEET S 298.9 P PSYCHOSIS NOS 01/07/2008 KATTY PLATE STRAIGHTENER, JEET S 311 MO DEPRESSIVE DISORDER NOS 01/07/2008 KATTY PLATE STRAIGHTENER, JEET S 312.30 I IMPULSE CONTROL DISORDER NOS 01/07/2008 KATTY PLATE STRAIGHTENER, JEET S 317 MILD MENTAL RETARDATION 01/07/2008 WHITE DDS, PAYTON D 29 8.9 P PSYCHOSIS NOS 01/07/2008 WHITE DDS, PAYTON D 31 1 MO DEPRESSIVE DISORDER NOS 01/07/2008 WHITE DDS, PAYTON D 312.30 I IMPULSE CONTROL DISORDER NOS 01/07/2008 WHITE DDS, PAYTON D 31 7 MILD MENTAL RETARDATION 01/07/[address] ARCINIEGA PLATE STRAIGHTENERDAVID Villalobos 298.9 P PSYCHOSIS NOS 01/07/2008 ARCINIEGA PLATE STRAIGHTENERDAVID 311 MO DEPRESSIVE DISORDER NOS 01/07/2008 ARCINIEGA PLATE STRAIGHTENERDAVID 312.30 I IMPULSE CONTROL DISORDER NOS 01/07/2008 ARCINIEGA DAVID HOLLAND 317 MILD MENTAL RETARDATION 01/07/2008 WHITE DDS, MEERA J 29 8.9 P PSYCHOSIS NOS 01/07/2008 WHITE DDS, MEERA J 31 1 MO DEPRESSIVE DISORDER NOS 01/07/2008 WHITE DDS, MEERA J 312.30 I IMPULSE CONTROL DISORDER NOS 01/07/2008 WHITE DDS, MEERA J 31 7 MILD MENTAL RETARDATION 01/07/2008 KATTY PLATE STRAIGHTENER, JEET S 298.9 P PSYCHOSIS NOS 01/07/2008 KATTY PLATE STRAIGHTENER, JEET S 311 MO DEPRESSIVE DISORDER NOS 01/07/2008 KATTY PLATE STRAIGHTENER, JEET S 312.30 I IMPULSE CONTROL DISORDER NOS 01/07/2008 KATTY PLATE STRAIGHTENER, JEET S 317 MILD MENTAL RETARDATION 01/07/2008 KATTY PLATE STRAIGHTENER, JEET S 298.9 P PSYCHOSIS NOS 01/07/2008 KATTY PLATE STRAIGHTENER, JEET S 311 MO DEPRESSIVE DISORDER NOS 01/07/2008 KATTY PLATE STRAIGHTENER, JEET S 312.30 I IMPULSE CONTROL DISORDER NOS 01/07/2008 KATTY PLATE STRAIGHTENER, JEET S 317 MILD MENTAL RETARDATION 01/07/2008 WHITE DDS, MEERA J 29 8.9 P PSYCHOSIS NOS 01/07/2008 WHITE DDS, MEERA J 31 1 MO DEPRESSIVE DISORDER NOS 01/07/2008 WHITE DDS, MEERA J 312.30 I IMPULSE CONTROL DISORDER NOS 01/07/2008 WHITE DDS, MEERA J 31 7 MILD MENTAL RETARDATION 01/07/2008 WHITE DDS, MEERA J 29 8.9 P PSYCHOSIS NOS 01/07/2008 WHITE DDS, MEERA J 31 1 MO DEPRESSIVE DISORDER NOS 01/07/2008 WHITE DDS, MEERA J 312.30 I IMPULSE CONTROL DISORDER NOS 01/07/2008 WHITE DDS, MEERA J 31 7 MILD MENTAL RETARDATION 01/07/[address] ARCINIEGA PLATE STRAIGHTENER, DAVID PIERRE 298.9 P PSYCHOSIS NOS 01/07/[address] ARC[address]ATE STRAIGHTENER, DAVID IGNACIO 311 MO DEPRESSIVE DISORDER NOS 01/07/[address] AR[address]ATE STRAIGHTENER, DAVID IGNACIO 312.30 I IMPULSE CONTROL DISORDER NOS 01/07/[address] ARCINIEGA PLATE STRAIGHTENER, DAVID DANIELSONH 317 MILD MENTAL RETARDATION 01/07/2008 KATTY PLATE STRAIGHTENER, JEET S 298.9 P PSYCHOSIS NOS 01/07/2008 KATTY PLATE STRAIGHTENER, JEET S 311 MO DEPRESSIVE DISORDER NOS 01/07/2008 KATTY PLATE STRAIGHTENER, JEET S 312.30 I IMPULSE CONTROL DISORDER NOS 01/07/2008 KATTY PLATE STRAIGHTENER, JEET S 317 MILD MENTAL RETARDATION 01/07/2008 AURY CRATE LINER, VIRIDIANA M 298.9 P PSYCHOSIS NOS 01/07/2008 AURY CRATE LINER, VIRIDIANA M 3 11 MO DEPRESSIVE DISORDER NOS 01/07/2008 AURY CRATE LINER, VIRIDIANA M 312.30 I IMPULSE CONTROL DISORDER NOS 01/07/2008 AURY CRATE LINERJOSE JUANVIRIDIANA M 3 17 MILD MENTAL RETARDATION 01/07/2008 AURY CRATE LINERJOSE JUANVIRIDIANA M 298.9 P PSYCHOSIS NOS 01/07/2008 AURY CRATE LINER, VIRIDIANA M 3 11 MO DEPRESSIVE DISORDER NOS 01/07/2008 AURY CRATE LINER, VIRIDIANA M 312.30 I IMPULSE CONTROL DISORDER NOS 01/07/2008 AURY CRATE LINER, VIRIDIANA M 3 17 MILD MENTAL RETARDATION 02/03/2008 250.00 CAROLE BETES MELLITUS 02/03/2008 530.81 Gerd 02/03/2008 250.00 CAROLE BETES MELLITUS 02/03/2008 530.81 Gerd 02/03/2008 MUOGHALU DDS, DAMIÁN N 250.00 DIABETES MELLITUS 02/03/2008 MUOGHALU DDS, DAMIÁN N 530.81 Gerd 02/03/2008 GUILLERMO ALANIZ APRNNDA S 250.00 DIABETES MELLITUS 02/03/2008 GUILLERMO ALANIZ APRNNDA S 530.81 Gerd 02/03/2008 GUILLERMO ALANIZ APRNNDA S 250.00 DIABETES MELLITUS 02/03/2008 KATTY HOLLAND JEET S 530.81 Gerd 02/03/2008 250.00 CAROLE BETES MELLITUS 02/03/2008 530.81 Gerd 02/03/2008 250.00 CAROLE BETES MELLITUS 02/03/2008 530.81 Gerd 02/03/2008 250.00 CAROLE BETES MELLITUS 02/03/2008 530.81 Gerd 02/03/2008 250.00 CAROLE BETES MELLITUS 02/03/2008 530.81 Gerd 02/03/2008 250.00 CAROLE BETES MELLITUS 02/03/2008 530.81 Gerd 02/03/2008 250.00 CAROLE BETES MELLITUS 02/03/2008 530.81 Gerd 02/03/2008 JULISA PUGA DO F 250 .00 DIABETES MELLITUS 02/03/2008 JULISA PUGA DO F 530 .81 Gerd 02/03/2008 GUILLERMO ALANIZ APRNNDA S 250.00 DIABETES MELLITUS 02/03/2008 GUILLERMO ALANIZ APRNNDA S 530.81 Gerd 02/03/2008 GUILLERMO ALANIZ APRNNDA S 250.00 DIABETES MELLITUS 02/03/2008 KATTY HOLLAND JEET S 530.81 Gerd 02/03/2008 WHITE DDS, PAYTON D 250.00 DIABETES MELLITUS 02/03/2008 WHITE DDS, PAYTON D 530.81 Gerd 02/03/2008 DAVID ARCINIEGA APRN 250.00 DIABETES MELLITUS 02/03/2008 DAVID ARCINIEGA APRN 530.81 Gerd 02/03/2008 WHITE DDS, MEERA J 250.00 DIABETES MELLITUS 02/03/2008 WHITE DDS, MEERA J 530.81 Gerd 02/03/2008 GUILLERMO ALANIZ APRNNDA S 250.00 DIABETES MELLITUS 02/03/2008 GUILLERMO ALANIZ APRNNDA S 530.81 Gerd 02/03/2008 GUILLERMO ALANIZ APRNNDA S 250.00 DIABETES MELLITUS 02/03/2008 GUILLERMO ALANIZ APRNNDA S 530.81 Gerd 02/03/2008 WHITE DDS, MEERA J 250.00 DIABETES MELLITUS 02/03/2008 WHITE DDS, MEERA J 530.81 Gerd 02/03/2008 WHITE DDS, MEERA J 250.00 DIABETES MELLITUS 02/03/2008 WHITE DDS, MEERA J 530.81 Gerd 02/03/2008 DAVID ARCINIEGA APRN 250.00 DIABETES MELLITUS 02/03/2008 DAVID ARCINIEGA APRN 530.81 Gerd 02/03/2008 KATTY HOLLAND, JEET S 250.00 DIABETES MELLITUS 02/03/2008 KATTY ARORAN, JEET S 530.81 Gerd 02/03/2008 AURY CRATE LINER, VIRIDIANA M 250.00 DIABETES MELLITUS 02/03/2008 AURY CRATE LINER, VIRIDIANA M 530.81 Gerd 02/03/2008 AURY CRATE LINER, VIRIDIANA M 250.00 DIABETES MELLITUS 02/03/2008 AURY CRATE LINER, VIRIDIANA M 530.81 Gerd 02/12/2008 272.0 HYPERCHOLESTEROLEMIA PURE 02/12/2008 V58.69 CRISTIAN G-TERM (CURRENT) USE OF OTHER MEDICATIONS 02/12/2008 272.0 HYPERCHOLESTEROLEMIA PURE 02/12/2008 V58.69 CRISTIAN G-TERM (CURRENT) USE OF OTHER MEDICATIONS 02/12/2008 MUOGHALU DDS, DAMIÁN N 272.0 HYPERCHOLESTEROLEMIA PURE 02/12/2008 MUOGHALU DDS, DAMIÁN N V58.69 LONG-TERM (CURRENT) USE OF OTHER MEDICATIONS 02/12/2008 KATTY HOLLAND JEET S 272.0 HYPERCHOLESTEROLEMIA PURE 02/12/2008 GUILLERMO ALANIZ APRNNDA S V58.69 LONG-TERM (CURRENT) USE OF OTHER MEDICATIONS 02/12/2008 KATTY ARORAN JEET S 272.0 HYPERCHOLESTEROLEMIA PURE 02/12/2008 KATTY PLATE STRAIGHTENER, JEET S V58.69 LONG-TERM (CURRENT) USE OF OTHER MEDICATIONS 02/12/2008 272.0 HYPERCHOLESTEROLEMIA PURE 02/12/2008 V58.69 CRISTIAN G-TERM (CURRENT) USE OF OTHER MEDICATIONS 02/12/2008 272.0 HYPERCHOLESTEROLEMIA PURE 02/12/2008 V58.69 CRISTIAN G-TERM (CURRENT) USE OF OTHER MEDICATIONS 02/12/2008 272.0 HYPERCHOLESTEROLEMIA PURE 02/12/2008 V58.69 CRISTIAN G-TERM (CURRENT) USE OF OTHER MEDICATIONS 02/12/2008 272.0 HYPERCHOLESTEROLEMIA PURE 02/12/2008 V58.69 CRISTIAN G-TERM (CURRENT) USE OF OTHER MEDICATIONS 02/12/2008 272.0 HYPERCHOLESTEROLEMIA PURE 02/12/2008 V58.69 CRISTIAN G-TERM (CURRENT) USE OF OTHER MEDICATIONS 02/12/2008 272.0 HYPERCHOLESTEROLEMIA PURE 02/12/2008 V58.69 CRISTIAN G-TERM (CURRENT) USE OF OTHER MEDICATIONS 02/12/2008 JULISA PUGA DO F 272 .0 HYPERCHOLESTEROLEMIA PURE 02/12/2008 EDD DOLUIZEN F V58 .69 LONG-TERM (CURRENT) USE OF OTHER MEDICATIONS 02/12/2008 KATTY HOLLAND JEET S 272.0 HYPERCHOLESTEROLEMIA PURE 02/12/2008 KATTY HOLLAND JETE S V58.69 LONG-TERM (CURRENT) USE OF OTHER MEDICATIONS 02/12/2008 KATTY HOLLAND JEET S 272.0 HYPERCHOLESTEROLEMIA PURE 02/12/2008 KATTY HOLLAND JEET S V58.69 LONG-TERM (CURRENT) USE OF OTHER MEDICATIONS 02/12/2008 WHITE DDS, PAYTON D 27 2.0 HYPERCHOLESTEROLEMIA PURE 02/12/2008 WHITE DDS PAYTON D V58.69 LONG-TERM (CURRENT) USE OF OTHER MEDICATIONS 02/12/2008 DEMIAN HOLLAND DAVID IGNACIO 272.0 HYPERCHOLESTEROLEMIA PURE 02/12/2008 DEMIAN HOLLAND DAVID PIERRE V58.69 LONG-TERM (CURRENT) USE OF OTHER MEDICATIONS 02/12/2008 WHITE DDS, MEERA J 27 2.0 HYPERCHOLESTEROLEMIA PURE 02/12/2008 WHITE DDS, MEERA J V58.69 LONG-TERM (CURRENT) USE OF OTHER MEDICATIONS 02/12/2008 KATTY HOLLAND JEET S 272.0 HYPERCHOLESTEROLEMIA PURE 02/12/2008 KATTY HOLLAND, JEET S V58.69 LONG-TERM (CURRENT) USE OF OTHER MEDICATIONS 02/12/2008 KATTY HOLLAND JEET S 272.0 HYPERCHOLESTEROLEMIA PURE 02/12/2008 KATTY HOLLAND, JEET S V58.69 LONG-TERM (CURRENT) USE OF OTHER MEDICATIONS 02/12/2008 WHITE DDS, MEERA J 27 2.0 HYPERCHOLESTEROLEMIA PURE 02/12/2008 WHITE DDS, MEERA J V58.69 LONG-TERM (CURRENT) USE OF OTHER MEDICATIONS 02/12/2008 WHITE DDS, MEERA J 27 2.0 HYPERCHOLESTEROLEMIA PURE 02/12/2008 WHITE DDS, MEERA J V58.69 LONG-TERM (CURRENT) USE OF OTHER MEDICATIONS 02/12/[address] STRAIGHTENERDAVID Villalobos 272.0 HYPERCHOLESTEROLEMIA PURE 02/12/[address] STRAIGHTENERDAVID V58.69 LONG-TERM (CURRENT) USE OF OTHER MEDICATIONS 02/12/2008 KEVIN ALANIZ APRNA S 272.0 HYPERCHOLESTEROLEMIA PURE 02/12/2008 GUILLERMO ALANIZ APRNNDA S V58.69 LONG-TERM (CURRENT) USE OF OTHER MEDICATIONS 02/12/2008 VIRIDIANA CEBALLOS M 272.0 HYPERCHOLESTEROLEMIA PURE 02/12/2008 VIRIDIANA CEBALLOS M V58.69 LONG-TERM (CURRENT) USE OF OTHER MEDICATIONS 02/12/2008 AURY CRATE LINERVIRIDIANA M 272.0 HYPERCHOLESTEROLEMIA PURE 02/12/2008 JOSE JUAN CEBALLOSISTIN M V58.69 LONG-TERM (CURRENT) USE OF OTHER MEDICATIONS 06/08/2008 250.02 Carole betes Ii Uncontrolled 06/08/2008 788.30 INC ONTINENCE ENURESOS/URINARY 06/08/2008 250.02 Carole betes Ii Uncontrolled 06/08/2008 788.30 INC ONTINENCE ENURESOS/URINARY 06/08/2008 CASTRO ZAPATAS, DAMIÁN N 250.02 Diabetes Ii Uncontrolled 06/08/2008 CASTRO ZAPATAS, DAMIÁN N 788.30 INCONTINENCE ENURESOS/URINARY 06/08/2008 JEET ALANIZ APRN S 250.02 Diabetes Ii Uncontrolled 06/08/2008 JEET ALANIZ APRN S 788.30 INCONTINENCE ENURESOS/URINARY 06/08/2008 JEET ALANIZ APRN S 250.02 Diabetes Ii Uncontrolled 06/08/2008 JEET ALANIZ APRN 788.30 INCONTINENCE ENURESOS/URINARY 06/08/2008 250.02 Carole betes Ii Uncontrolled 06/08/2008 788.30 INC ONTINENCE ENURESOS/URINARY 06/08/2008 250.02 Craole betes Ii Uncontrolled 06/08/2008 788.30 INC ONTINENCE ENURESOS/URINARY 06/08/2008 250.02 Carole betes Ii Uncontrolled 06/08/2008 788.30 INC ONTINENCE ENURESOS/URINARY 06/08/2008 250.02 Carole betes Ii Uncontrolled 06/08/2008 788.30 INC ONTINENCE ENURESOS/URINARY 06/08/2008 250.02 Carole betes Ii Uncontrolled 06/08/2008 788.30 INC ONTINENCE ENURESOS/URINARY 06/08/2008 250.02 Carole betes Ii Uncontrolled 06/08/2008 788.30 INC ONTINENCE ENURESOS/URINARY 06/08/2008 EDD DO, JULISA F 250 .02 Diabetes Ii Uncontrolled 06/08/2008 EDD DO, JULISA F 788 .30 INCONTINENCE ENURESOS/URINARY 06/08/2008 KEVIN ALANIZ APRNA S 250.02 Diabetes Ii Uncontrolled 06/08/2008 KEVIN ALANIZ APRNA S 788.30 INCONTINENCE ENURESOS/URINARY 06/08/2008 KEVIN ALANIZ APRNA S 250.02 Diabetes Ii Uncontrolled 06/08/2008 GUILLERMO ALANIZ APRNNDA S 788.30 INCONTINENCE ENURESOS/URINARY 06/08/2008 PAYTON STEWART DDS 250.02 Diabetes Ii Uncontrolled 06/08/2008 PAYTON STEWART DDS 788.30 INCONTINENCE ENURESOS/URINARY 06/08/2008 DEMIAN HOLLAND DAVID DANIELSONH 250.02 Diabetes Ii Uncontrolled 06/08/2008 DEMIAN HOLLAND DAVID PIERRE 788.30 INCONTINENCE ENURESOS/URINARY 06/08/2008 MEERA STEWART DDS J 250.02 Diabetes Ii Uncontrolled 06/08/2008 MEERA STEWART DDS J 788.30 INCONTINENCE ENURESOS/URINARY 06/08/2008 KEVIN ALANIZ APRNA S 250.02 Diabetes Ii Uncontrolled 06/08/2008 GUILLERMO ALANIZ APRNNDA S 788.30 INCONTINENCE ENURESOS/URINARY 06/08/2008 GUILLERMO ALANIZ APRNNDA S 250.02 Diabetes Ii Uncontrolled 06/08/2008 GUILLERMO ALANIZ APRNNDA S 788.30 INCONTINENCE ENURESOS/URINARY 06/08/2008 MEERA STEWART DDS J 250.02 Diabetes Ii Uncontrolled 06/08/2008 MEERA STEWART DDS J 788.30 INCONTINENCE ENURESOS/URINARY 06/08/2008 WHITE DDS, MEERA J 250.02 Diabetes Ii Uncontrolled 06/08/2008 PAT DDS, MEERA J 788.30 INCONTINENCE ENURESOS/URINARY 06/08/2008 DEMIAN ARORANDAVID 250.02 Diabetes Ii Uncontrolled 06/08/[address] PLATE STRAIGHTENERDAVID 788.30 INCONTINENCE ENURESOS/URINARY 06/08/2008 JEET ALANIZ APRN S 250.02 Diabetes Ii Uncontrolled 06/08/2008 KEVIN ALANIZ APRNA S 788.30 INCONTINENCE ENURESOS/URINARY 06/08/2008 VIRIDIANA CEBALLOS 250.02 Diabetes Ii Uncontrolled 06/08/2008 VIRIDIANA CEBALLOS M 788.30 INCONTINENCE ENURESOS/URINARY 06/08/2008 VIRIDIANA CEBALLOS M 250.02 Diabetes Ii Uncontrolled 06/08/2008 VIRIDIANA CEBALLOS M 788.30 INCONTINENCE ENURESOS/URINARY 07/07/2008 307.6 EI E NURESIS 07/07/2008 315.31 EXP RESSIVE LANGUAGE DISORDER 07/07/2008 307.6 EI E NURESIS 07/07/2008 315.31 EXP RESSIVE LANGUAGE DISORDER 07/07/2008 MUOGHALAydin ZAPATASVENKATESHRA N 307.6 EI ENURESIS 07/07/2008 CASTRO ZAPATAS, DAMIÁN N 315.31 EXPRESSIVE LANGUAGE DISORDER 07/07/2008 JEET ALANIZ APRN S 307.6 EI ENURESIS 07/07/2008 JEET ALANIZ APRN S 315.31 EXPRESSIVE LANGUAGE DISORDER 07/07/2008 JEET ALANIZ APRN S 307.6 EI ENURESIS 07/07/2008 JEET ALANIZ APRN S 315.31 EXPRESSIVE LANGUAGE DISORDER 07/07/2008 307.6 EI E NURESIS 07/07/2008 315.31 EXP RESSIVE LANGUAGE DISORDER 07/07/2008 307.6 EI E NURESIS 07/07/2008 315.31 EXP RESSIVE LANGUAGE DISORDER 07/07/2008 307.6 EI E NURESIS 07/07/2008 315.31 EXP RESSIVE LANGUAGE DISORDER 07/07/2008 307.6 EI E NURESIS 07/07/2008 315.31 EXP RESSIVE LANGUAGE DISORDER 07/07/2008 307.6 EI E NURESIS 07/07/2008 315.31 EXP RESSIVE LANGUAGE DISORDER 07/07/2008 307.6 EI E NURESIS 07/07/2008 315.31 EXP RESSIVE LANGUAGE DISORDER 07/07/2008 WERDER DOJULISA F 307 .6 EI ENURESIS 07/07/2008 ESSENCEDER DOJULISA F 315 .31 EXPRESSIVE LANGUAGE DISORDER 07/07/2008 GUILLERMO ALANIZ APRNNDA S 307.6 EI ENURESIS 07/07/2008 KATTY HOLLAND JEET S 315.31 EXPRESSIVE LANGUAGE DISORDER 07/07/2008 GUILLERMO ALANIZ APRNNDA S 307.6 EI ENURESIS 07/07/2008 GUILLERMO ALANIZ APRNNDA S 315.31 EXPRESSIVE LANGUAGE DISORDER 07/07/2008 WHITE DDS, PAYTON D 30 7.6 EI ENURESIS 07/07/2008 WHITE DDS, PAYTON D 315.31 EXPRESSIVE LANGUAGE DISORDER 07/07/2008 DEMIAN HOLLAND DAVID IGNACIO 307.6 EI ENURESIS 07/07/2008 DEMIAN HOLLAND DAVID IGNACIO 315.31 EXPRESSIVE LANGUAGE DISORDER 07/07/2008 WHITE DDS, MEERA J 30 7.6 EI ENURESIS 07/07/2008 WHITE DDS, MEERA J 315.31 EXPRESSIVE LANGUAGE DISORDER 07/07/2008 GUILLERMO ALANIZ APRNNDA S 307.6 EI ENURESIS 07/07/2008 GUILLERMO ALANIZ APRNNDA S 315.31 EXPRESSIVE LANGUAGE DISORDER 07/07/2008 GUILLERMO ALANIZ APRNNDA S 307.6 EI ENURESIS 07/07/2008 GUILLERMO ALANIZ APRNNDA S 315.31 EXPRESSIVE LANGUAGE DISORDER 07/07/2008 WHITE DDS, MEERA J 30 7.6 EI ENURESIS 07/07/2008 WHITE DDS, MEERA J 315.31 EXPRESSIVE LANGUAGE DISORDER 07/07/2008 WHITE DDS, MEERA J 30 7.6 EI ENURESIS 07/07/2008 WHITE DDS, MEERA J 315.31 EXPRESSIVE LANGUAGE DISORDER 07/07/2008 ARCINIEGA AMALIA DAVID IGNACIO 307.6 EI ENURESIS 07/07/2008 ARCINIEGA AMALIA DAVID IGNACIO 315.31 EXPRESSIVE LANGUAGE DISORDER 07/07/2008 KATTY PLATE STRAIGHTENER, JEET S 307.6 EI ENURESIS 07/07/2008 KATTY ARORAN, JEET S 315.31 EXPRESSIVE LANGUAGE DISORDER 07/07/2008 AURY CRATE LINER, VIRIDIANA M 307.6 EI ENURESIS 07/07/2008 AURY CRATE LINER, VIRIDIANA M 315.31 EXPRESSIVE LANGUAGE DISORDER 07/07/2008 AURY CRATE LINER, VIRIDIANA M 307.6 EI ENURESIS 07/07/2008 AURY CRATE LINER, VIRIDIANA M 315.31 EXPRESSIVE LANGUAGE DISORDER 08/10/2008 465.9 Acut e Upper Respiratory Infections Of Unspecified Site 08/10/2008 465.9 Acut e Upper Respiratory Infections Of Unspecified Site 08/10/2008 DAMIÁN ERAZO DDS 465.9 Acute Upper Respiratory Infections Of Unspecified Site 08/10/2008 KATTY HOLLAND, JEET S 465.9 Acute Upper Respiratory Infections Of Unspecified Site 08/10/2008 KATTY HOLLAND, JEET S 465.9 Acute Upper Respiratory Infections Of Unspecified Site 08/10/2008 465.9 Acut e Upper Respiratory Infections Of Unspecified Site 08/10/2008 465.9 Acut e Upper Respiratory Infections Of Unspecified Site 08/10/2008 465.9 Acut e Upper Respiratory Infections Of Unspecified Site 08/10/2008 465.9 Acut e Upper Respiratory Infections Of Unspecified Site 08/10/2008 465.9 Acut e Upper Respiratory Infections Of Unspecified Site 08/10/2008 465.9 Acut e Upper Respiratory Infections Of Unspecified Site 08/10/2008 JULISA PUGA DO 465 .9 Acute Upper Respiratory Infections Of Unspecified Site 08/10/2008 KATTY HOLLAND, JEET S 465.9 Acute Upper Respiratory Infections Of Unspecified Site 08/10/2008 KATTY HOLLAND, JEET S 465.9 Acute Upper Respiratory Infections Of Unspecified Site 08/10/2008 PAYTON STEWART DDS 46 5.9 Acute Upper Respiratory Infections Of Unspecified Site 08/10/2008 DAVID ARCINIEGA APRN 465.9 Acute Upper Respiratory Infections Of Unspecified Site 08/10/2008 MEERA STEWART DDS 46 5.9 Acute Upper Respiratory Infections Of Unspecified Site 08/10/2008 GUILLERMO ALANIZ APRNNDA S 465.9 Acute Upper Respiratory Infections Of Unspecified Site 08/10/2008 JEET ALANIZ APRN S 465.9 Acute Upper Respiratory Infections Of Unspecified Site 08/10/2008 WHITE DDS, MEERA J 46 5.9 Acute Upper Respiratory Infections Of Unspecified Site 08/10/2008 WHITE DDS, MEERA J 46 5.9 Acute Upper Respiratory Infections Of Unspecified Site 08/10/2008 DEMIAN AMALIADAVID 465.9 Acute Upper Respiratory Infections Of Unspecified Site 08/10/2008 KEVIN ALANIZ APRNA S 465.9 Acute Upper Respiratory Infections Of Unspecified Site 08/10/2008 AURY CRATE LINER, VIRIDIANA M 465.9 Acute Upper Respiratory Infections Of Unspecified Site 08/10/2008 AURY CRATE LINER, VIRIDIANA M 465.9 Acute Upper Respiratory Infections Of Unspecified Site 02/10/2009 995.20 UNS PECIFIED ADVERSE EFFECT OF UNSPECIFIED DRUG, MEDICINAL AND BIOLOGICAL SUBSTANCE, NOT ELSEWHERE CLASSIFIED 02/10/2009 E939.9 UNS PECIFIED PSYCHOTROPIC AGENTS CAUSING ADVERSE EFFECTS IN THERAPEUTIC USE 02/10/2009 995.20 UNS PECIFIED ADVERSE EFFECT OF UNSPECIFIED DRUG, MEDICINAL AND BIOLOGICAL SUBSTANCE, NOT ELSEWHERE CLASSIFIED 02/10/2009 E939.9 UNS PECIFIED PSYCHOTROPIC AGENTS CAUSING ADVERSE EFFECTS IN THERAPEUTIC USE 02/10/2009 MUOGHALU DDSVENKATESHRA N 995.20 UNSPECIFIED ADVERSE EFFECT OF UNSPECIFIE D DRUG, MEDICINAL AND BIOLOGICAL SUBSTANCE, NOT ELSEWHERE CLASSIFIED 02/10/2009 KRISTELOGHALU DDSDAMIÁN N E939.9 UNSPECIFIED PSYCHOTROPIC AGENTS CAUSING ADVERSE EFFECTS IN THERAPEUTIC USE 02/10/2009 JEET ALANIZ APRN S 995.20 UNSPECIFIED ADVERSE EFFECT OF UNSPECIFIE D DRUG, MEDICINAL AND BIOLOGICAL SUBSTANCE, NOT ELSEWHERE CLASSIFIED 02/10/2009 JEET ALANIZ APRN S E939.9 UNSPECIFIED PSYCHOTROPIC AGENTS CAUSING ADVERSE EFFECTS IN THERAPEUTIC USE 02/10/2009 KEVIN ALANIZ APRNA S 995.20 UNSPECIFIED ADVERSE EFFECT OF UNSPECIFIE D DRUG, MEDICINAL AND BIOLOGICAL SUBSTANCE, NOT ELSEWHERE CLASSIFIED 02/10/2009 KEVIN ALANIZ APRNA S E939.9 UNSPECIFIED PSYCHOTROPIC AGENTS CAUSING ADVERSE EFFECTS IN THERAPEUTIC USE 02/10/2009 995.20 UNS PECIFIED ADVERSE EFFECT OF UNSPECIFIED DRUG, MEDICINAL AND BIOLOGICAL SUBSTANCE, NOT ELSEWHERE CLASSIFIED 02/10/2009 E939.9 UNS PECIFIED PSYCHOTROPIC AGENTS CAUSING ADVERSE EFFECTS IN THERAPEUTIC USE 02/10/2009 995.20 UNS PECIFIED ADVERSE EFFECT OF UNSPECIFIED DRUG, MEDICINAL AND BIOLOGICAL SUBSTANCE, NOT ELSEWHERE CLASSIFIED 02/10/2009 E939.9 UNS PECIFIED PSYCHOTROPIC AGENTS CAUSING ADVERSE EFFECTS IN THERAPEUTIC USE 02/10/2009 995.20 UNS PECIFIED ADVERSE EFFECT OF UNSPECIFIED DRUG, MEDICINAL AND BIOLOGICAL SUBSTANCE, NOT ELSEWHERE CLASSIFIED 02/10/2009 E939.9 UNS PECIFIED PSYCHOTROPIC AGENTS CAUSING ADVERSE EFFECTS IN THERAPEUTIC USE 02/10/2009 995.20 UNS PECIFIED ADVERSE EFFECT OF UNSPECIFIED DRUG, MEDICINAL AND BIOLOGICAL SUBSTANCE, NOT ELSEWHERE CLASSIFIED 02/10/2009 E939.9 UNS PECIFIED PSYCHOTROPIC AGENTS CAUSING ADVERSE EFFECTS IN THERAPEUTIC USE 02/10/2009 995.20 UNS PECIFIED ADVERSE EFFECT OF UNSPECIFIED DRUG, MEDICINAL AND BIOLOGICAL SUBSTANCE, NOT ELSEWHERE CLASSIFIED 02/10/2009 E939.9 UNS PECIFIED PSYCHOTROPIC AGENTS CAUSING ADVERSE EFFECTS IN THERAPEUTIC USE 02/10/2009 995.20 UNS PECIFIED ADVERSE EFFECT OF UNSPECIFIED DRUG, MEDICINAL AND BIOLOGICAL SUBSTANCE, NOT ELSEWHERE CLASSIFIED 02/10/2009 E939.9 UNS PECIFIED PSYCHOTROPIC AGENTS CAUSING ADVERSE EFFECTS IN THERAPEUTIC USE 02/10/2009 JULISA PUGA DO 995 .20 UNSPECIFIED ADVERSE EFFECT OF UNSPECIFIED DRUG, MEDICINAL AND BIOLOGICAL SUBSTANCE, NOT ELSEWHERE CLASSIFIED 02/10/2009 JULISA PUGA DO E93 9.9 UNSPECIFIED PSYCHOTROPIC AGENTS CAUSING ADVERSE EFFECTS IN THERAPEUTIC USE 02/10/2009 JEET ALANIZ APRN S 995.20 UNSPECIFIED ADVERSE EFFECT OF UNSPECIFIE D DRUG, MEDICINAL AND BIOLOGICAL SUBSTANCE, NOT ELSEWHERE CLASSIFIED 02/10/2009 JEET ALANIZ APRN E939.9 UNSPECIFIED PSYCHOTROPIC AGENTS CAUSING ADVERSE EFFECTS IN THERAPEUTIC USE 02/10/2009 JEET ALANIZ APRN S 995.20 UNSPECIFIED ADVERSE EFFECT OF UNSPECIFIE D DRUG, MEDICINAL AND BIOLOGICAL SUBSTANCE, NOT ELSEWHERE CLASSIFIED 02/10/2009 JEET ALANIZ APRN E939.9 UNSPECIFIED PSYCHOTROPIC AGENTS CAUSING ADVERSE EFFECTS IN THERAPEUTIC USE 02/10/2009 PAT ZAPATASPAYTON 995.20 UNSPECIFIED ADVERSE EFFECT OF UNSPECIFIE D DRUG, MEDICINAL AND BIOLOGICAL SUBSTANCE, NOT ELSEWHERE CLASSIFIED 02/10/2009 PAT ZAPATASPAYTON E939.9 UNSPECIFIED PSYCHOTROPIC AGENTS CAUSING ADVERSE EFFECTS IN THERAPEUTIC USE 02/10/2009 DEMIAN HOLLANDDAVID 995.20 UNSPECIFIED ADVERSE EFFECT OF UNSPECIFIE D DRUG, MEDICINAL AND BIOLOGICAL SUBSTANCE, NOT ELSEWHERE CLASSIFIED 02/10/2009 ARCINIEGADULCE HOLLANDDAVID E939.9 UNSPECIFIED PSYCHOTROPIC AGENTS CAUSING ADVERSE EFFECTS IN THERAPEUTIC USE 02/10/2009 PAT DDS, MEERA J 995.20 UNSPECIFIED ADVERSE EFFECT OF UNSPECIFIE D DRUG, MEDICINAL AND BIOLOGICAL SUBSTANCE, NOT ELSEWHERE CLASSIFIED 02/10/2009 PAT DDS, MEERA J E939.9 UNSPECIFIED PSYCHOTROPIC AGENTS CAUSING ADVERSE EFFECTS IN THERAPEUTIC USE 02/10/2009 KATTY HOLLAND JEET S 995.20 UNSPECIFIED ADVERSE EFFECT OF UNSPECIFIE D DRUG, MEDICINAL AND BIOLOGICAL SUBSTANCE, NOT ELSEWHERE CLASSIFIED 02/10/2009 GUILLERMO ALANIZ APRNNDA S E939.9 UNSPECIFIED PSYCHOTROPIC AGENTS CAUSING ADVERSE EFFECTS IN THERAPEUTIC USE 02/10/2009 KATTY HOLLAND JEET S 995.20 UNSPECIFIED ADVERSE EFFECT OF UNSPECIFIE D DRUG, MEDICINAL AND BIOLOGICAL SUBSTANCE, NOT ELSEWHERE CLASSIFIED 02/10/2009 GUILLERMO ALANIZ APRNNDA S E939.9 UNSPECIFIED PSYCHOTROPIC AGENTS CAUSING ADVERSE EFFECTS IN THERAPEUTIC USE 02/10/2009 PAT DDS, MEERA J 995.20 UNSPECIFIED ADVERSE EFFECT OF UNSPECIFIE D DRUG, MEDICINAL AND BIOLOGICAL SUBSTANCE, NOT ELSEWHERE CLASSIFIED 02/10/2009 PAT DDS, MEERA J E939.9 UNSPECIFIED PSYCHOTROPIC AGENTS CAUSING ADVERSE EFFECTS IN THERAPEUTIC USE 02/10/2009 PAT DDS, MEERA J 995.20 UNSPECIFIED ADVERSE EFFECT OF UNSPECIFIE D DRUG, MEDICINAL AND BIOLOGICAL SUBSTANCE, NOT ELSEWHERE CLASSIFIED 02/10/2009 PAT DDS, MEERA J E939.9 UNSPECIFIED PSYCHOTROPIC AGENTS CAUSING ADVERSE EFFECTS IN THERAPEUTIC USE 02/10/2009 DEMIAN HOLLAND DAVID PIERRE 995.20 UNSPECIFIED ADVERSE EFFECT OF UNSPECIFIE D DRUG, MEDICINAL AND BIOLOGICAL SUBSTANCE, NOT ELSEWHERE CLASSIFIED 02/10/2009 DEMIAN HOLLAND DAVID PIERRE E939.9 UNSPECIFIED PSYCHOTROPIC AGENTS CAUSING ADVERSE EFFECTS IN THERAPEUTIC USE 02/10/2009 GUILLERMO ALANIZ APRNNDA S 995.20 UNSPECIFIED ADVERSE EFFECT OF UNSPECIFIE D DRUG, MEDICINAL AND BIOLOGICAL SUBSTANCE, NOT ELSEWHERE CLASSIFIED 02/10/2009 GUILLERMO ALANIZ APRNNDA S E939.9 UNSPECIFIED PSYCHOTROPIC AGENTS CAUSING ADVERSE EFFECTS IN THERAPEUTIC USE 02/10/2009 AURY VIRIDIANA KAUR 995.20 UNSPECIFIED ADVERSE EFFECT OF UNSPECIFIE D DRUG, MEDICINAL AND BIOLOGICAL SUBSTANCE, NOT ELSEWHERE CLASSIFIED 02/10/2009 AURY VIRIDIANA KAUR E939.9 UNSPECIFIED PSYCHOTROPIC AGENTS CAUSING ADVERSE EFFECTS IN THERAPEUTIC USE 02/10/2009 AURY VIRIDIANA KAUR 995.20 UNSPECIFIED ADVERSE EFFECT OF UNSPECIFIE D DRUG, MEDICINAL AND BIOLOGICAL SUBSTANCE, NOT ELSEWHERE CLASSIFIED 02/10/2009 AURY CNSVIRIDIANA E939.9 UNSPECIFIED PSYCHOTROPIC AGENTS CAUSING ADVERSE EFFECTS IN THERAPEUTIC USE 05/10/2009 296.90 MO MOOD DIS NOS 05/10/2009 789.07 Abd ominal Pain, Generalized 05/10/2009 296.90 MO MOOD DIS NOS 05/10/2009 789.07 Abd ominal Pain, Generalized 05/10/2009 MUOGHALU DDS, DAMIÁN N 296.90 MO MOOD DIS NOS 05/10/2009 KRISTELOGHALU DDS, DAMIÁN N 789.07 Abdominal Pain, Generalized 05/10/2009 KATTY PLATE STRAIGHTENER, JEET S 296.90 MO MOOD DIS NOS 05/10/2009 KATTY PLATE STRAIGHTENER, JEET S 789.07 Abdominal Pain, Generalized 05/10/2009 KATTY PLATE STRAIGHTENER, JEET S 296.90 MO MOOD DIS NOS 05/10/2009 KATTY PLATE STRAIGHTENER, JEET S 789.07 Abdominal Pain, Generalized 05/10/2009 296.90 MO MOOD DIS NOS 05/10/2009 789.07 Abd ominal Pain, Generalized 05/10/2009 296.90 MO MOOD DIS NOS 05/10/2009 789.07 Abd ominal Pain, Generalized 05/10/2009 296.90 MO MOOD DIS NOS 05/10/2009 789.07 Abd ominal Pain, Generalized 05/10/2009 296.90 MO MOOD DIS NOS 05/10/2009 789.07 Abd ominal Pain, Generalized 05/10/2009 296.90 MO MOOD DIS NOS 05/10/2009 789.07 Abd ominal Pain, Generalized 05/10/2009 296.90 MO MOOD DIS NOS 05/10/2009 789.07 Abd ominal Pain, Generalized 05/10/2009 WERDER DO, JULISA F 296 .90 MO MOOD DIS NOS 05/10/2009 JULISA PUGA DO F 789 .07 Abdominal Pain, Generalized 05/10/2009 KATTY PLATE STRAIGHTENER, JEET S 296.90 MO MOOD DIS NOS 05/10/2009 KATTY PLATE STRAIGHTENER, JEET S 789.07 Abdominal Pain, Generalized 05/10/2009 KATTY PLATE STRAIGHTENER, JEET S 296.90 MO MOOD DIS NOS 05/10/2009 KATTY PLATE STRAIGHTENER, JEET S 789.07 Abdominal Pain, Generalized 05/10/2009 WHITE DDS, PAYTON D 296.90 MO MOOD DIS NOS 05/10/2009 WHITE DDS, PAYTON D 789.07 Abdominal Pain, Generalized 05/10/2009 ARCINIEGA PLATE STRAIGHTENER, DAVID IGNACIO 296.90 MO MOOD DIS NOS 05/10/2009 ARCINIEGA PLATE STRAIGHTENER, DAVID IGNACIO 789.07 Abdominal Pain, Generalized 05/10/2009 WHITE DDS, MEERA J 296.90 MO MOOD DIS NOS 05/10/2009 WHITE DDS, MEERA J 789.07 Abdominal Pain, Generalized 05/10/2009 KATTY PLATE STRAIGHTENER, JEET S 296.90 MO MOOD DIS NOS 05/10/2009 KATTY PLATE STRAIGHTENER, JEET S 789.07 Abdominal Pain, Generalized 05/10/2009 KATTY PLATE STRAIGHTENER, JEET S 296.90 MO MOOD DIS NOS 05/10/2009 KATTY PLATE STRAIGHTENER, JEET S 789.07 Abdominal Pain, Generalized 05/10/2009 WHITE DDS, MEERA J 296.90 MO MOOD DIS NOS 05/10/2009 WHITE DDS, MEERA J 789.07 Abdominal Pain, Generalized 05/10/2009 WHITE DDS, MEERA J 296.90 MO MOOD DIS NOS 05/10/2009 WHITE DDS, MEERA J 789.07 Abdominal Pain, Generalized 05/10/2009 ARCINIEGA PLATE STRAIGHTENER DAVID IGNACIO 296.90 MO MOOD DIS NOS 05/10/2009 ARCINIEGA PLATE STRAIGHTENER, DAVID IGNACIO 789.07 Abdominal Pain, Generalized 05/10/2009 KATTY PLATE STRAIGHTENER, JEET S 296.90 MO MOOD DIS NOS 05/10/2009 KATTY PLATE STRAIGHTENER, JEET S 789.07 Abdominal Pain, Generalized 05/10/2009 VIRIDIANA CEBALLOS 296.90 MO MOOD DIS NOS 05/10/2009 VIRIDIANA CEBALLOS M 789.07 Abdominal Pain, Generalized 05/10/2009 VIRIDIANA CEBALLOS M 296.90 MO MOOD DIS NOS 05/10/2009 VIRIDIANA CEBALLOS 789.07 Abdominal Pain, Generalized 10/04/2009 786.2 cough 10/04/2009 786.2 cough 10/04/2009 CASTRO DDS, DAMIÁN N 786.2 cough 10/04/2009 KATTY PLATE STRAIGHTENER, JEET S 786.2 cough 10/04/2009 KATTY PLATE STRAIGHTENER, JEET S 786.2 cough 10/04/2009 786.2 cough 10/04/2009 786.2 cough 10/04/2009 786.2 cough 10/04/2009 786.2 cough 10/04/2009 786.2 cough 10/04/2009 786.2 cough 10/04/2009 JULISA PUGA DO 786 .2 cough 10/04/2009 KATTY PLATE STRAIGHTENER, JEET S 786.2 cough 10/04/2009 KATTY PLATE STRAIGHTENER, JEET S 786.2 cough 10/04/2009 WHITE DDS, PAYTON D 78 6.2 cough 10/04/2009 DAVID ARCINIEGA APRN 786.2 cough 10/04/2009 PAT ZAPATAS, MEERA J 78 6.2 cough 10/04/2009 KATTY PLATE STRAIGHTENER, JEET S 786.2 cough 10/04/2009 KATTY PLATE STRAIGHTENER, JEET S 786.2 cough 10/04/2009 WHITE JODISESTRELLITAON J 78 6.2 cough 10/04/2009 WHITE DDSESTRELLITAON J 78 6.2 cough 10/04/2009 DAVID ARCINIEGA APRN 786.2 cough 10/04/2009 KATTY PLATE STRAIGHTENER, JEET S 786.2 cough 10/04/2009 VIRIDIANA CEBALLOS M 786.2 cough 10/04/2009 VIRIDIANA CEBALLOS 786.2 cough 02/28/2011 427.9 Card iac Dysrhythmia Unspecified 02/28/2011 786.50 Uns pecified Chest Pain 02/28/2011 V04.81 FLU DX (3 YRS AND ABOVE, IM) 02/28/2011 427.9 Card iac Dysrhythmia Unspecified 02/28/2011 786.50 Uns pecified Chest Pain 02/28/2011 V04.81 FLU DX (3 YRS AND ABOVE, IM) 02/28/2011 MUOGHALU DDS, DAMIÁN N 427.9 Cardiac Dysrhythmia Unspecified 02/28/2011 MUOGHALU DDS, DAMIÁN N 786.50 Unspecified Chest Pain 02/28/2011 MUOGHALU DDS, DAMIÁN N V04.81 FLU DX (3 YRS AND ABOVE, IM) 02/28/2011 KATTY PLATE STRAIGHTENER, JEET S 427.9 Cardiac Dysrhythmia Unspecified 02/28/2011 KATTY PLATE STRAIGHTENER, JEET S 786.50 Unspecified Chest Pain 02/28/2011 KATTY PLATE STRAIGHTENER, JEET S V04.81 FLU DX (3 YRS AND ABOVE, IM) 02/28/2011 KATTY PLATE STRAIGHTENER, JEET S 427.9 Cardiac Dysrhythmia Unspecified 02/28/2011 KATTY PLATE STRAIGHTENER, JEET S 786.50 Unspecified Chest Pain 02/28/2011 KATTY PLATE STRAIGHTENER, JEET S V04.81 FLU DX (3 YRS AND ABOVE, IM) 02/28/2011 427.9 Card iac Dysrhythmia Unspecified 02/28/2011 786.50 Uns pecified Chest Pain 02/28/2011 V04.81 FLU DX (3 YRS AND ABOVE, IM) 02/28/2011 427.9 Card iac Dysrhythmia Unspecified 02/28/2011 786.50 Uns pecified Chest Pain 02/28/2011 V04.81 FLU DX (3 YRS AND ABOVE, IM) 02/28/2011 427.9 Card iac Dysrhythmia Unspecified 02/28/2011 786.50 Uns pecified Chest Pain 02/28/2011 V04.81 FLU DX (3 YRS AND ABOVE, IM) 02/28/2011 427.9 Card iac Dysrhythmia Unspecified 02/28/2011 786.50 Uns pecified Chest Pain 02/28/2011 V04.81 FLU DX (3 YRS AND ABOVE, IM) 02/28/2011 427.9 Card iac Dysrhythmia Unspecified 02/28/2011 786.50 Uns pecified Chest Pain 02/28/2011 V04.81 FLU DX (3 YRS AND ABOVE, IM) 02/28/2011 427.9 Card iac Dysrhythmia Unspecified 02/28/2011 786.50 Uns pecified Chest Pain 02/28/2011 V04.81 FLU DX (3 YRS AND ABOVE, IM) 02/28/2011 JULISA PUGA DO F 427 .9 Cardiac Dysrhythmia Unspecified 02/28/2011 JULISA PUGA DO F 786 .50 Unspecified Chest Pain 02/28/2011 JULISA PUGA DO F V04 .81 FLU DX (3 YRS AND ABOVE, IM) 02/28/2011 KATTY PLATE STRAIGHTENER JEET S 427.9 Cardiac Dysrhythmia Unspecified 02/28/2011 KATTY PLATE STRAIGHTENER, JEET S 786.50 Unspecified Chest Pain 02/28/2011 KATTY PLATE STRAIGHTENER JEET S V04.81 FLU DX (3 YRS AND ABOVE, IM) 02/28/2011 KATTY PLATE STRAIGHTENER JEET S 427.9 Cardiac Dysrhythmia Unspecified 02/28/2011 KATTY PLATE STRAIGHTENER JEET S 786.50 Unspecified Chest Pain 02/28/2011 KATTY PLATE STRAIGHTENER, JEET S V04.81 FLU DX (3 YRS AND ABOVE, IM) 02/28/2011 WHITE DDS, PAYTON D 42 7.9 Cardiac Dysrhythmia Unspecified 02/28/2011 WHITE DDS, PAYTON D 786.50 Unspecified Chest Pain 02/28/2011 WHITE DDS, PAYTON D V04.81 FLU DX (3 YRS AND ABOVE, IM) 02/28/2011 DEMIAN HOLLAND DAVID DANIELSONH 427.9 Cardiac Dysrhythmia Unspecified 02/28/[address] STRAIGHTENER DAVID DANIELSONH 786.50 Unspecified Chest Pain 02/28/[address] STRAIGHTENER, DAVID PIERRE V04.81 FLU DX (3 YRS AND ABOVE, IM) 02/28/2011 WHITE DDSMEERA J 42 7.9 Cardiac Dysrhythmia Unspecified 02/28/2011 WHITE DDSMEERA J 786.50 Unspecified Chest Pain 02/28/2011 WHITE DDSESTRELLITAON J V04.81 FLU DX (3 YRS AND ABOVE, IM) 02/28/2011 KATTY HOLLAND JEET S 427.9 Cardiac Dysrhythmia Unspecified 02/28/2011 KATTY PLATE STRAIGHTENER, JEET S 786.50 Unspecified Chest Pain 02/28/2011 KATTY PLATE STRAIGHTENER, JEET S V04.81 FLU DX (3 YRS AND ABOVE, IM) 02/28/2011 KATTY PLATE STRAIGHTENER, JEET S 427.9 Cardiac Dysrhythmia Unspecified 02/28/2011 KATTY PLATE STRAIGHTENER, JEET S 786.50 Unspecified Chest Pain 02/28/2011 KATTY PLATE STRAIGHTENER, JEET S V04.81 FLU DX (3 YRS AND ABOVE, IM) 02/28/2011 WHITE DDS, MEERA J 42 7.9 Cardiac Dysrhythmia Unspecified 02/28/2011 WHITE DDS, MEERA J 786.50 Unspecified Chest Pain 02/28/2011 WHITE DDS, MEERA J V04.81 FLU DX (3 YRS AND ABOVE, IM) 02/28/2011 WHITE DDS, MEERA J 42 7.9 Cardiac Dysrhythmia Unspecified 02/28/2011 WHITE DDS, MEERA J 786.50 Unspecified Chest Pain 02/28/2011 WHITE DDS, MEERA J V04.81 FLU DX (3 YRS AND ABOVE, IM) 02/28/2011 DAVID ARCINIEGA APRN 427.9 Cardiac Dysrhythmia Unspecified 02/28/2011 DAVID ARCINIEGA APRN 786.50 Unspecified Chest Pain 02/28/2011 DAVID ARCINIEGA APRN V04.81 FLU DX (3 YRS AND ABOVE, IM) 02/28/2011 KATTY ARORAN, JEET S 427.9 Cardiac Dysrhythmia Unspecified 02/28/2011 KATTY ARORAN, JEET S 786.50 Unspecified Chest Pain 02/28/2011 K[address]Y [address]ATE STRAIGHTENER, JEET S V04.81 FLU DX (3 YRS AND ABOVE, IM) 02/28/2011 VIRIDIANA CEBALLOS 427.9 Cardiac Dysrhythmia Unspecified 02/28/2011 VIRIDIANA CEBALLOS M 786.50 Unspecified Chest Pain 02/28/2011 VIRIDIANA CEBALLOS M V04.81 FLU DX (3 YRS AND ABOVE, IM) 02/28/2011 VIRIDIANA CEBALLOS 427.9 Cardiac Dysrhythmia Unspecified 02/28/2011 AURY CNSVIRIDIANA M 786.50 Unspecified Chest Pain 02/28/2011 AURY KAURVIRIDIANA V04.81 FLU DX (3 YRS AND ABOVE, IM) 04/28/2012 JEET ALANIZ APRN S 535.50 UNSPECIFIED GASTRITIS AND GASTRODUODENITIS (WITHOUT HE MORRHAGE) 04/28/2012 JEET ALANIZ APRN S V70.0 EXAM - ROUTINE H&P 04/28/2012 JEET ALANIZ APRN S 535.50 UNSPECIFIED GASTRITIS AND GASTRODUODENITIS (WITHOUT HE MORRHAGE) 04/28/2012 JEET ALANIZ APRN S V70.0 EXAM - ROUTINE H&P 04/28/2012 535.50 UNS PECIFIED GASTRITIS AND GASTRODUODENITIS (WITHOUT HEMORRHAGE) 04/28/2012 V70.0 EXAM - ROUTINE H&P 04/28/2012 535.50 UNS PECIFIED GASTRITIS AND GASTRODUODENITIS (WITHOUT HEMORRHAGE) 04/28/2012 V70.0 EXAM - ROUTINE H&P 04/28/2012 535.50 UNS PECIFIED GASTRITIS AND GASTRODUODENITIS (WITHOUT HEMORRHAGE) 04/28/2012 V70.0 EXAM - ROUTINE H&P 04/28/2012 535.50 UNS PECIFIED GASTRITIS AND GASTRODUODENITIS (WITHOUT HEMORRHAGE) 04/28/2012 V70.0 EXAM - ROUTINE H&P 04/28/2012 535.50 UNS PECIFIED GASTRITIS AND GASTRODUODENITIS (WITHOUT HEMORRHAGE) 04/28/2012 V70.0 EXAM - ROUTINE H&P 04/28/2012 535.50 UNS PECIFIED GASTRITIS AND GASTRODUODENITIS (WITHOUT HEMORRHAGE) 04/28/2012 V70.0 EXAM - ROUTINE H&P 04/28/2012 JULISA PUGA DO 535 .50 UNSPECIFIED GASTRITIS AND GASTRODUODENITIS (WITHOUT HEMORRHAGE) 04/28/2012 JULISA PUGA DO V70 .0 EXAM - ROUTINE H&P 04/28/2012 JEET ALANIZ APRN 535.50 UNSPECIFIED GASTRITIS AND GASTRODUODENITIS (WITHOUT HE MORRHAGE) 04/28/2012 JEET ALANIZ APRN S V70.0 EXAM - ROUTINE H&P 04/28/2012 JEET ALANIZ APRN S 535.50 UNSPECIFIED GASTRITIS AND GASTRODUODENITIS (WITHOUT HE MORRHAGE) 04/28/2012 JEET ALANIZ APRN S V70.0 EXAM - ROUTINE H&P 04/28/2012 PAYTON STEWART DDS 535.50 UNSPECIFIED GASTRITIS AND GASTRODUODENITIS (WITHOUT HE MORRHAGE) 04/28/2012 PAT ZAPATASPAYTON V7 0.0 EXAM - ROUTINE H&P 04/28/2012 DEMIAN HOLLAND DAVID PIERRE 535.50 UNSPECIFIED GASTRITIS AND GASTRODUODENITIS (WITHOUT HE MORRHAGE) 04/28/2012 DEMIAN HOLLAND DAVID IGNACIO V70.0 EXAM - ROUTINE H&P 04/28/2012 PAT ZAPATASMEERA J 535.50 UNSPECIFIED GASTRITIS AND GASTRODUODENITIS (WITHOUT HE MORRHAGE) 04/28/2012 PAT ZAPATAS, MEERA J V7 0.0 EXAM - ROUTINE H&P 04/28/2012 JEET ALANIZ APRN S 535.50 UNSPECIFIED GASTRITIS AND GASTRODUODENITIS (WITHOUT HE MORRHAGE) 04/28/2012 JEET ALANIZ APRN S V70.0 EXAM - ROUTINE H&P 04/28/2012 JEET ALANIZ APRN S 535.50 UNSPECIFIED GASTRITIS AND GASTRODUODENITIS (WITHOUT HE MORRHAGE) 04/28/2012 JEET ALANIZ APRN S V70.0 EXAM - ROUTINE H&P 04/28/2012 PAT ZAPATASESTRELLITAON J 535.50 UNSPECIFIED GASTRITIS AND GASTRODUODENITIS (WITHOUT HE MORRHAGE) 04/28/2012 PAT DDS, MEERA J V7 0.0 EXAM - ROUTINE H&P 04/28/2012 PAT DDS, MEERA J 535.50 UNSPECIFIED GASTRITIS AND GASTRODUODENITIS (WITHOUT HE MORRHAGE) 04/28/2012 PAT DDS, MEERA J V7 0.0 EXAM - ROUTINE H&P 04/28/2012 DEMIAN HOLLAND DAVID PIERRE 535.50 UNSPECIFIED GASTRITIS AND GASTRODUODENITIS (WITHOUT HE MORRHAGE) 04/28/2012 DEMIAN HOLLAND DAVID PIERRE V70.0 EXAM - ROUTINE H&P 04/28/2012 KEVIN ALANIZ APRNA S 535.50 UNSPECIFIED GASTRITIS AND GASTRODUODENITIS (WITHOUT HE MORRHAGE) 04/28/2012 KEVIN ALANIZ APRNA S V70.0 EXAM - ROUTINE H&P 04/28/2012 VIRIDIANA CEBALLOS 535.50 UNSPECIFIED GASTRITIS AND GASTRODUODENITIS (WITHOUT HE MORRHAGE) 04/28/2012 VIRIDIANA CEBALLOS V70.0 EXAM - ROUTINE H&P 04/28/2012 VIRIDIANA CEBALLOS 535.50 UNSPECIFIED GASTRITIS AND GASTRODUODENITIS (WITHOUT HE MORRHAGE) 04/28/2012 VIRIDIANA CEBALLOS V70.0 EXAM - ROUTINE H&P 08/10/2013 KEVIN ALANIZ APRNA S 327.23 OBSTRUCTIVE SLEEP APNEA (ADULT) (PEDIATRIC) 08/10/2013 GUILLERMO ALANIZ APRNNDA S 355.9 MONONEURITIS OF UNSPECIFIED SITE 08/10/2013 GUILLERMO ALANIZ APRNNDA S 327.23 OBSTRUCTIVE SLEEP APNEA (ADULT) (PEDIATRIC) 08/10/2013 GUILLERMO ALANIZ APRNNDA S 355.9 MONONEURITIS OF UNSPECIFIED SITE 08/10/2013 WHITE JODIS, MEERA J 327.23 OBSTRUCTIVE SLEEP APNEA (ADULT) (PEDIATRIC) 08/10/2013 WHITE DDS, MEERA J 35 5.9 MONONEURITIS OF UNSPECIFIED SITE 08/10/2013 WHITE DDS, MEERA J 327.23 OBSTRUCTIVE SLEEP APNEA (ADULT) (PEDIATRIC) 08/10/2013 PAT ZAPATAS, MEERA J 35 5.9 MONONEURITIS OF UNSPECIFIED SITE 08/10/2013 DAVID ARCINIEGA APRN 327.23 OBSTRUCTIVE SLEEP APNEA (ADULT) (PEDIATRIC) 08/10/2013 DAVID ARCINIEGA APRN 355.9 MONONEURITIS OF UNSPECIFIED SITE 08/10/2013 GUILLERMO ALANIZ APRNNDA S 327.23 OBSTRUCTIVE SLEEP APNEA (ADULT) (PEDIATRIC) 08/10/2013 GUILLERMO ALANIZ APRNNDA S 355.9 MONONEURITIS OF UNSPECIFIED SITE 08/10/2013 VIRIDIANA CEBALLOS 327.23 OBSTRUCTIVE SLEEP APNEA (ADULT) (PEDIATRIC) 08/10/2013 VIRIDIANA CEBALLOS 355.9 MONONEURITIS OF UNSPECIFIED SITE 08/10/2013 VIRIDIANA CEBALLOS 327.23 OBSTRUCTIVE SLEEP APNEA (ADULT) (PEDIATRIC) 08/10/2013 VIRIDIANA CEBALLOS 355.9 MONONEURITIS OF UNSPECIFIED SITE 08/12/2014 VIRIDIANA CEBALLOS 788.1 DYSURIA 09/25/2019 AL VIEYRA DO Ot Z01.818 ENCOUNTER FOR OTHER PREPROCEDURAL EXAMIN 09/25/2019 AL VIEYRA DO Ot Z11. 59 ENCOUNTER FOR SCREENING FOR OTHER VIRAL Procedures Code Description [place] [address] PSYC H PHARM MGMT 04/17/2012 76679 A1C (IN-HOUSE) 04/28/2012 73421 UA L HAYDEN DIP 04/28/2012 70760 MICR O ALBUMIN-IN HOUSE 04/28/2012 39172 ROUT INE VENIPUNCTURE 08/05/2012 67314 ROUT INE VENIPUNCTURE 08/05/2012 51890 CBC 08/05/2012 43198 CBC 08/05/2012 25628 LIVE R PANEL (LFT) 08/05/2012 15750 LIVE R PANEL (LFT) 08/05/2012 95112 LIPI D PANEL 08/05/2012 43070 LIPI D PANEL 08/05/2012 [id number] GF R CALC (RESULT ONLY) 08/05/2012 [id number] GF R CALC (RESULT ONLY) 08/05/2012 62447 VALP ROIC ACID / DEPAKOTE 08/05/2012 77470 VALP ROIC ACID / DEPAKOTE 08/05/2012 54125 DAVID L PROFILE 08/05/2012 88983 DAVID L PROFILE 08/05/2012 52928 FOLATE 08/06/2012 63010 FOLATE 08/06/2012 02418 HOMO CYSTINE 08/07/2012 73378 HOMO CYSTINE 08/07/2012 34803 JAYNE MIN D 25-HYDROXY (D2,D3, TOTAL) 08/11/2012 72170 JAYNE MIN D 25-HYDROXY (D2,D3, TOTAL) 08/11/2012 93777 ROUT INE VENIPUNCTURE 08/14/2012 11140 UA W / CULTURE IF INDICATED 08/14/2012 77741 PSA TOTAL 08/14/2012 77539 SLEE P STUDY 11/26/2012 74888 A1C (IN-HOUSE) 02/12/2013 88713 JAYNE MIN D 25-HYDROXY (D2,D3, TOTAL) 07/29/2013 15638 A1C (IN-HOUSE) 08/10/2013 41615 UA L HAYDEN DIP 08/12/2014 52796 CULT URE URINE 08/14/2014 Results Test Result Range CBC With Differential/Platelet - 7 08:50 WBC 5.4 x10E3/uL 3.4-10.8 RBC 4.18 x10E6/uL 4.14-5.80 Hemoglobin 12.5 g/dL 12.6-17.7 Hematocrit 38.3 % 37.5-51.0 MCV 92 fL 79-97 MCH 29.9 pg 26.6-33.0 MCHC 32.6 g/dL 31.5-35.7 RDW 13.9 % 12.3-15.4 Platelets 191 x10E3/uL 150-379 Neutrophils 51 % Lymphs 42 % Monocytes 6 % Eos 1 % Basos 0 % Neutrophils (Absolute) 2.8 x10E3/uL 1.4- 7.0 Lymphs (Absolute) 2.3 x10E3/uL 0.7-3.1 Monocytes(Absolute) 0.3 x10E3/uL 0.1-0.9 Eos (Absolute) 0.0 x10E3/uL 0.0-0.4 Baso (Absolute) 0.0 x10E3/uL 0.0-0.2 Immature Granulocytes 0 % Immature Grans (Abs) 0.0 x10E3/uL 0.0-0. 1 Comp. Metabolic Panel (14) - 10/02/16 08 :50 Glucose, Serum 134 mg/dL 65-99 BUN 13 mg/dL 6-24 Creatinine, Serum 1.14 mg/dL 0.76-1.27 eGFR If NonAfricn Am 74 mL/min/1.73 >59 eGFR If Africn Am 85 mL/min/1.73 >59 BUN/Creatinine Ratio 11 9-20 Sodium, Serum 142 mmol/L 134-144 Potassium, Serum 4.3 mmol/L 3.5-5.2 Chloride, Serum 99 mmol/L 96-106 Carbon Dioxide, Total 27 mmol/L 18-29 Calcium, Serum 9.3 mg/dL 8.7-10.2 Protein, Total, Serum 6.5 g/dL 6.0-8.5 Albumin, Serum 4.0 g/dL 3.5-5.5 Globulin, Total 2.5 g/dL 1.5-4.5 A/G Ratio 1.6 1.2-2.2 Bilirubin, Total 0.3 mg/dL 0.0-1.2 Alkaline Phosphatase, S 52 IU/L 39-117 AST (SGOT) 11 IU/L 0-40 ALT (SGPT) 9 IU/L 0-44 Lipid Panel - 10/02/16 08:50 Cholesterol, Total 155 mg/dL 100-199 Triglycerides 107 mg/dL 0-149 HDL Cholesterol 55 mg/dL >39 VLDL Cholesterol Bob 21 mg/dL 5-40 LDL Cholesterol Calc 79 mg/dL 0-99 TSH - 10/02/16 08:50 TSH 2.850 uIU/mL 0.450-4.500 Valproic Acid (Depakote)(R),S - 10/02/16 08:50 Valproic Acid (Depakote),S 50 ug/mL 50- 100 VALPROIC ACID/DEPAKOTE - 05/29/17 10:40 VALPROIC ACID 93.2 mg/L 50.0-100.0 LIPID PANEL - 10/08/17 08:11 CHOLESTEROL, TOTAL 133 mg/dL <200 HDL CHOLESTEROL 52 mg/dL >40 TRIGLYCERIDES 103 mg/dL <150 LDL-CHOLESTEROL 62 mg/dL (calc) NRG CHOL/HDLC RATIO 2.6 (calc) <5.0 NON HDL CHOLESTEROL 81 mg/dL (calc) <130 CMP - 10/08/17 08:11 GLUCOSE 126 mg/dL 65-99 UREA NITROGEN (BUN) 15 mg/dL 7-25 CREATININE 1.25 mg/dL 0.70-1.33 eGFR NON-AFR. [facility] 65 mL/min/1.73m2 > OR = 60 eGFR 76 mL/min/1.73m2 > OR = 60 BUN/CREATININE RATIO NOT APPLICABLE (calc) 6-22 SODIUM 138 mmol/L 135-146 POTASSIUM 4.3 mmol/L 3.5-5.3 CHLORIDE 100 mmol/L 98-110 CARBON DIOXIDE 29 mmol/L 20-31 CALCIUM 9.3 mg/dL 8.6-10.3 PROTEIN, TOTAL 6.4 g/dL 6.1-8.1 ALBUMIN 4.0 g/dL 3.6-5.1 GLOBULIN 2.4 g/dL (calc) 1.9-3.7 ALBUMIN/GLOBULIN RATIO 1.7 (calc) 1.0-2. 5 BILIRUBIN, TOTAL 0.3 mg/dL 0.2-1.2 ALKALINE PHOSPHATASE 47 U/L 40-115 AST 13 U/L 10-35 ALT 8 U/L 9-46 CULTURE, URINE - 01/15/19 10:04 CULTURE, URINE, ROUTINE SEE NOTE NRG CBC - 01/19/19 08:29 WHITE BLOOD CELL COUNT 6.9 Thousand/uL 3 .8-10.8 RED BLOOD CELL COUNT 3.69 Million/uL 4.2 0-5.80 HEMOGLOBIN 11.6 g/dL 13.2-17.1 HEMATOCRIT 35.2 % 38.5-50.0 MCV 95.4 fL 80.0-100.0 MCH 31.4 pg 27.0-33.0 MCHC 33.0 g/dL 32.0-36.0 RDW 12.9 % 11.0-15.0 PLATELET COUNT 164 Thousand/uL 140-400 MPV 9.0 fL 7.5-12.5 ABSOLUTE NEUTROPHILS 4809 cells/uL 1500- 7800 ABSOLUTE LYMPHOCYTES 1484 cells/uL 850-3 900 ABSOLUTE MONOCYTES 593 cells/uL 200-950 ABSOLUTE EOSINOPHILS 7 cells/uL 15-500 ABSOLUTE BASOPHILS 7 cells/uL 0-200 NEUTROPHILS 69.7 % NRG LYMPHOCYTES 21.5 % NRG MONOCYTES 8.6 % NRG EOSINOPHILS 0.1 % NRG BASOPHILS 0.1 % NRG CULTURE, URINE - 06/24/19 16:07 CULTURE, URINE, ROUTINE SEE NOTE NRG Coronavirus SARS-CoV-2 SO 2018 - 0 13:08 Coronavirus Ab [Units/volume] in Serum Negative Negative Encounters ACCT No. Visit Date/Time Discharge Status Pt. Type Provider Facility Loc./Unit Complaint [id number] 10/03/2016 08:49:00 Document Registration [id number] 09/25/2019 08:02:00 020 14:01:00 DIS Outpatient AL VIEYRA DO [facility] PREOP COLONOSCOPY [id number] 11/24/2012 21:00:00 013 06:55:00 DIS Outpatient [id number] 09/29/2019 09:18:[address] Outpatient AL VIEYRA DO [facility] ENDO SCREENING [id number] 08/13/2014 08:00:00 08/13/2014 23:59: 59 CLS Outpatient VIRIDIANA CEBALLOS [id number] 07/23/2014 10:29:00 07/23/2014 23:59: 59 CLS Outpatient VIRIDIANA CEBALLOS [id number] 05/12/2014 14:35:00 05/12/2014 23:59: 59 CLS Outpatient JEET ALANIZ APRN [id number] 11/25/2013 14:26:00 11/25/2013 23:59: 59 CLS Outpatient DEMIAN HOLLAND DAVID PIERRE [id number] 11/03/2013 07:53:00 11/03/2013 23:59: 59 CLS Outpatient MEERA STEWART DDS [id number] 09/29/2013 08:54:00 09/29/2013 23:59: 59 CLS Outpatient MEERA STEWART DDS [id number] 08/10/2013 12:06:00 08/10/2013 23:59: 59 CLS Outpatient JEET ALANIZ APRN [id number] 08/10/2013 12:06:00 08/10/2013 23:59: 59 CLS Outpatient JEET ALANIZ APRN [id number] 07/27/2013 09:15:00 07/27/2013 23:59: 59 CLS Outpatient MEERA STEWART DDS [id number] 07/23/2013 17:42:00 07/23/2013 23:59: 59 CLS Outpatient DEMIAN HOLLAND DAVID PIERRE [id number] 06/10/2013 11:12:00 06/10/2013 23:59: 59 CLS Outpatient WHITE DDPAYTON Mazariegos [id number] 02/12/2013 13:24:00 02/12/2013 23:59: 59 CLS Outpatient JEET ALANIZ APRN S [id number] 02/12/2013 13:24:00 02/12/2013 23:59: 59 CLS Outpatient JEET ALANIZ APRN [id number] 01/05/2013 11:24:00 01/05/2013 23:59: 59 CLS Outpatient JULISA PUGA DO [id number] 04/28/2012 10:05:00 04/28/2012 23:59: 59 CLS Outpatient KATTY ARORAJEET Villalobos [id number] 04/28/2012 10:05:00 04/28/2012 23:59: 59 CLS Outpatient KATTY JEET HOLLAND [id number] 04/10/2012 09:58:00 04/10/2012 23:59: 59 CLS Outpatient DAMIÁN ERAZO DDS Griselda [id number] 03/31/2012 12:06:00 03/31/2012 23:59: 59 CLS Outpatient [id number] 11/19/2011 12:36:00 11/19/2011 23:59:5 9 CLS Outpatient [id number] 10/20/2012 09:05:00 Document Registration [id number] 10/20/2012 09:05:00 Document Registration [id number] 08/14/2012 10:31:00 Document Registration [id number] 08/14/2012 10:31:00 Document Registration [id number] 08/05/2012 12:00:00 Document Registration [id number] 08/05/2012 12:00:00 Document Registration [id number] 06/11/2019 11:40:00 06/11/2019 23:59:5 9 CLS Outpatient KATTYJEET CASH APRN [facility] [id number] 06/24/2019 15:30:00 Document Registration [id number] 01/19/2019 08:40:00 Document Registration [id number] 01/15/2019 08:40:00 Document Registration [id number] 10/08/2017 08:20:00 Document Registration [id number] 05/29/2017 10:40:00 Document Registration
[2019-09-29 11:30] VITALS: BP 119/80
[2019-09-29 11:36] VITALS: BP 119/80
--- NOTE | 2019-09-29 12:55 | Anesthesia-General Post-Op ---
MAC Patient Condition Mental Status/LOC: Same as Preop Cardiovascular: Satisfactory Nausea/Vomiting: Absent Respiratory: Satisfactory Pain: Controlled Complications: Absent Post Op Complications Complications None Follow Up Care/Instructions Patient Instructions None needed. Anesthesiology Discharge Order Discharge Order Patient is doing well, no complaints, stable vital signs, no apparent adverse anesthesia problems. No complications reported per nursing. GELA LOUIS CRNA Sep 29, 2019 12:55
--- NOTE | 2019-09-29 15:04 | OPERATIVE REPORT ---
DATE OF SERVICE: 09/29/2019 PREOPERATIVE DIAGNOSIS: Screening colonoscopy. POSTOPERATIVE DIAGNOSIS: Ascending colon mass. PROCEDURE: Colonoscopy with cold biopsies of the mass and an injection of Jeniffer ink. SURGEON: Al Garcia DO ANESTHESIA: Per [employer]. ESTIMATED BLOOD LOSS: Scant. COMPLICATIONS: None. SPECIMENS: Ascending colon mass. INDICATIONS: The patient is a 54-year-old male needing screening colonoscopy. He understands risks and benefits of procedure and wished to proceed with procedure. Consent was signed in the chart. DESCRIPTION OF PROCEDURE: The patient was taken to the endoscopy suite, placed in left lateral recumbent position. Timeout was performed. Digital rectal exam was performed. There were no palpable polyps, masses or ulcerations. Scope was inserted in the rectum and advanced all the way to cecum with minimal difficulty. Prep was adequate with irrigation and suction. Scope was then slowly retracted back. No polyps, masses or ulcerations visualized within the cecum and the ascending colon. Colonic mass was present. Cold biopsies were obtained. Just distal to this area, Jeniffer ink was injected. Scope was then continuously retracted back. No other polyps, masses or ulcerations visualized within the remainder of the ascending, transverse, descending and sigmoid colon. Once in the rectum, scope was retroflexed noting no other pathology. Scope was returned to its normal position, slowly withdrawn until completely removed. The patient tolerated procedure well without any complications, taken to recovery room in stable condition. RECOMMENDATIONS: The patient need to followup on biopsies and discuss right colon resection, all indicated procedures. Job ID: [id number] DocumentID: [id number] Dictated Date: 09/29/2019 11:02:01 Substation Operator Automatic Date: 09/29/2019 15:03:10 Dictated By: AL GARCIA DO
== END 2019-09-29 11:40 | disposition home or self-care (01) ==
LOC: ENDO 09:18
PROVIDERS: ATTEND Surgery
DX: Z12.11 Encounter for screening for malignant neoplasm of colon (principal); D12.2 Benign neoplasm of ascending colon; I10 Essential (primary) hypertension; J45.909 Unspecified asthma, uncomplicated; E78.5 Hyperlipidemia, unspecified; F79 Unspecified intellectual disabilities; Z79.84 Long term (current) use of oral hypoglycemic drugs; Z79.899 Other long term (current) drug therapy

== ENCOUNTER 2019-11-02 05:43 | Outpatient (RCR) | payer MEDICAID ==
[~2019-11-02] VITALS: Ht 165 cm; Wt 85.0 kg
[~2019-11-02 05:43] MED LIST changes: +FOLI0.8C PO
== END 2019-11-02 10:38 | disposition home or self-care (01) ==
LOC: PREOP 05:43
PROVIDERS: ATTEND Surgery
DX: Z01.818 Encounter for other preprocedural examination (principal); Z20.828 Contact with and (suspected) exposure to other viral communicable diseases; D12.2 Benign neoplasm of ascending colon
CPT/HCPCS: 87635

== ENCOUNTER 2019-11-05 07:29 | Inpatient (IN) | payer MEDICAID ==
--- NOTE | 2019-11-05 07:35 | NUR ---
PT TO [facility]14. [employer] STAFF AT BEDSIDE. PT NOT ABLE TO REPORT WHAT PROCEDURE DR IS TO PERFORM TODAY, UNABLE TO SIGN CONSENT FOR HIMSELF. NO CERTIFIED LETTER OF GUARDIANSHIP TO PROVIDE CONSENT FOR PROCEDURE. [employer]AFF ATTEMPTING TO OBTAIN PROOF OF GUARDIANSHIP. ANESTHESIA AWARE. DR NOTIFIED.
[2019-11-05] MEDS ORDERED: LACTATED RINGERS 1,000 ML IV PRN (07:37)
[2019-11-05] MEDS ORDERED: metroNIDAZOLE 500MG/100ML IVPB 100 ML IV ONE (07:45)
[2019-11-05] MEDS ORDERED: ceFAZolin 2 GM IV Premixed 50 ML IV ONE (07:45)
--- OUTSIDE RECORDS SUMMARY | 2019-11-05 07:52 | XMS REPORT ---
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 Active 51152604 Problem Hypertensive retinopathy of both eyes H35.033 Active 4541917 Problem Open-angle glaucoma of both eyes, unspecified glaucoma stage, unspecified open-angle glaucoma type H40.10X0 Acti ve 55574180 Problem Obstructive sleep apnea G47.33 Active 61499045 Problem Type 2 diabetes mellitus with complication E11.8 Active 11701653 Problem Intermittent explosive disorder in adult F63.81 Active 17350057 Problem Bipolar disorder, unspecified F31.9 Active 69871915 Problem Mild intellectual disability F70 A ctive 95786059 Problem Other specified urinary incontinence N39.498 Active 976197819 Problem Diabetes E11.9 Active 82712845 Problem Type 2 diabetes mellitus wit h diabetic neuropathy, unspecified whether shelter insulin use E11.40 Active 422587 880150115 Problem Essential hypertension I10 Active 03929335 Problem Reactive airway disease, mild intermittent, uncomplicated J45.20 Active 924672488 Problem Gastroesophageal reflux disease without esophagitis K21.9 Active 835330038 Problem Other diabetic neurological complication associated with type 2 diabetes mellitus E11.49 Active 757606616 Problem Neuropathy G62.9 Active [id number] ALLERGIES No Information ENCOUNTERS Encounter Location Date Diagnosis [facility] [address] [facility] [id number] [address] [place] [phone] 09 Jan, 2020 [facility] [address] [facility] [id number] [address] [place] [phone] Dec, [facility] [address] [facility] [id number] [address] [place] [phone] Oct, Callus of foot L84 ; Hyperhi drosis R61 ; Onychomycosis B35.1 and Tinea pedis of both feet B35.3 [place] [address] [place] [id number] [address] [place] [phone] 23 Sep, 2019 [place] [address] [address] Sep, [place] [address] [address] Sep, [place] [address] [address] Sep, Essential hypertension I10 [place] [address] [address] August, Intermittent explosive disor salvatore in adult F63.81 ; Bipolar disorder, unspecified F31.9 and Mild intellectual disability F70 [place] [address] [place] [id number] [place] [phone] Jul, Type 2 diabetes mellitus wit h diabetic neuropathy, unspecified whether shelter insulin use E11.40 and Colon cancer screening Z12.11 [place] [address] [place] [id number] [place] [phone] Jul, Type 2 diabetes mellitus wit h diabetic neuropathy, unspecified whether shelter insulin use E11.40 and Tinea pedis, unspecified laterality B35.3 [place] [address] [place] [id number] [place] [phone] Jun, [place] [address] [place] [id number] [place] [phone] Jun, [facility] [address] [phone] 04 Jun, 2019 Dysuria R30.0 [place] [address] [address] Jun, [place] [address] [place] [id number] [address] [place] [phone] 20 May, 2019 Influenza J11.1 [facility] [address] [facility] [id number] [address] [place] [phone] 13 May, 2019 Intermittent explosive disor salvatore in adult F63.81 [facility] [address] [place] [id number] [address] [place] [phone] May, [facility] [address] [place] [id number] [address] [place] [id number] Apr, Intermittent explosive disor salvatore in adult F63.81 ; Bipolar disorder, unspecified F31.9 and Mild intellectual disability F70 [facility] [address] [place] [id number] [place] [phone] Apr, Oral health maintenance stat us requiring routine preventive dental care K08.9 [place] [address] [place] [id number] [address] [place] [phone] Apr, Type 2 diabetes mellitus wit h complication E11.8 ; History of test for hearing Z92.89 ; Colon cancer screening Z12.11 ; Other specified urinary incontinence N39.498 and Impacted cerumen, right ear H61.21 [place] [address] [place] [id number] [address] [place] [phone] 10 Apr, 2019 Onychomycosis B35.1 ; Other diabetic neurological complication associated with type 2 diabetes mellitus E11.49 and Tinea pedis of both feet B35.3 [place] [address] [place] [id number] [address] [place] [phone] Feb, [place] [address] [place] [id number] [address] [place] [phone] Jan, [place] [address] [place] [id number] [address] [place] [phone] Jan, [place] [address] [place] [id number] [address] [place] [phone] Jan, [place] [address] [place] [id number] [address] [place] [phone] Jan, [facility] [address] [facility] [id number] [address] [place] [phone] Jan, [facility] [address] [facility] [id number] [address] [place] [phone] Jan, [facility] [address] [facility] [id number] [address] [place] [phone] Jan, [facility] [address] [facility] [id number] [address] [place] [phone] Jan, Anemia D64.9 [facility] [address] [place] [id number] [place] [phone] Jan, Dental examination Z01.20 an d Oral health maintenance status requiring routine preventive dental care K08.9 [facility] [address] [facility] [id number] [address] [place] [phone] Jan, Onychomycosis B35.1 and Othe r diabetic neurological complication associated with type 2 diabetes mellitus E11.49 [facility] [address] [facility] [id number] [address] [place] [phone] Jan, Anemia D64.9 [facility] [address] [facility] [id number] [address] [place] [phone] Jan, [facility] [address] [facility] [id number] [address] [place] [phone] Dec, Urinary tract infection with out hematuria, site unspecified N39.0 [facility] [address] [facility] [id number] [address] [place] [phone] Dec, Type 2 diabetes mellitus wit h complication E11.8 ; Urinary tract infection without hematuria, site unspecified N39.0 ; Impacted cerumen of both ears H61.23 ; Encounter for immunization Z23 and Hyponatremia E87.1 [facility] [address] [facility] [id number] [address] [place] [phone] Dec, Intermittent explosive disor salvatore in adult F63.81 ; Dysuria R30.0 ; Type 2 diabetes mellitus with complication E11.8 ; Bipolar disorder, unspecified F31.9 and Mild intellectual disability F70 [facility] [address] [facility] [id number] [address] [place] [phone] Dec, Dysuria R30.0 [facility] [address] [facility] [id number] [address] [place] [phone] Dec, Intermittent explosive disor salvatore in adult F63.81 ; Bipolar disorder, unspecified F31.9 and Mild intellectual disability F70 [facility] [address] [facility] [id number] [address] [place] [phone] Nov, [facility] [address] [facility] [id number] [address] [place] [phone] Oct, [facility] [address] [facility] [id number] [place] [phone] Oct, Oral health maintenance stat us requiring routine preventive dental care K08.9 [facility] [address] [facility] [id number] [address] [place] [phone] August, Intermittent explosive disor salvatore in adult F63.81 ; Bipolar disorder, unspecified F31.9 and Mild intellectual disability F70 [facility] [address] [id number] [address] [place] [address] [phone] August, Dental caries K02.9 [facility] [address] [facility] [id number] [address] [place] [phone] Jul, Onychomycosis B35.1 ; Other diabetic neurological complication associated with type 2 diabetes mellitus E11.49 and Tinea pedis of both feet B35.3 [facility] [address] [id number] [address] [place] [address] [id number] Jul, Caries K02.9 [facility] [address] [facility] [id number] [address] [place] [phone] Jul, Type 2 diabetes mellitus wit h complication E11.8 ; Tobacco abuse Z72.0 and Bipolar disorder, unspecified F31.9 [facility] [address] [place] [id number] [address] [place] [phone] Jun, [facility] [address] [facility] [id number] [address] [place] [address] [id number] Jun, Dental examination Z01.20 an d Oral health maintenance status requiring routine preventive dental care K08.9 [facility] [id number] [place] [phone] 11 May, 2018 Bilateral impacted cerumen H 61.23 [facility] [address] [place] [id number] [address] [place] [phone] Apr, Bipolar disorder, unspecifie d F31.9 ; Intermittent explosive disorder in adult F63.81 ; Type 2 diabetes mellitus with complication E11.8 ; Tobacco abuse Z72.0 and Colon cancer screening Z12.11 [facility] [address] [place] [id number] [address] [place] [phone] Apr, Onychomycosis B35.1 and Othe r diabetic neurological complication associated with type 2 diabetes mellitus E11.49 [facility] [address] [place] [id number] [address] [place] [id number] Apr, Intermittent explosive disor salvatore in adult F63.81 ; Bipolar disorder, unspecified F31.9 and Mild intellectual disability F70 [facility] [address] [place] [id number] [address] [place] [phone] Mar, Diabetes E11.9 [facility] [address] [place] [id number] [address] [place] [phone] Jan, Encounter for immunization Z 23 [facility] [address] [place] [id number] [address] [place] [phone] Jan, Tinea pedis of both feet B35 .3 ; Other diabetic neurological complication associated with type 2 diabetes mellitus E11.49 and Onychomycosis B35.1 [facility] [address] [place] [id number] [address] [place] [phone] Nov, Type 2 diabetes mellitus wit h complication E11.8 [facility] [address] [facility] [id number] [address] [place] [phone] Nov, [facility] [address] [facility] [id number] [address] [place] [phone] Oct, Intermittent explosive disor salvatore in adult F63.81 ; Bipolar disorder, unspecified F31.9 and Mild intellectual disability F70 [facility] [address] [facility] [id number] [address] [place] [phone] Oct, [facility] [address] [facility] [id number] [address] [place] [address] [id number] Oct, Dental examination Z01.20 [facility] [address] [place] [id number] [address] [place] [phone] Oct, Onychomycosis B35.1 and Othe r diabetic neurological complication associated with type 2 diabetes mellitus E11.49 [place] [address] [place] [id number] [address] [place] [id number] Sep, Type 2 diabetes mellitus wit h complication E11.8 and Colon cancer screening Z12.11 [place] [address] [place] [id number] [address] [place] [phone] Sep, Type 2 diabetes mellitus wit h complication E11.8 ; Colon cancer screening Z12.11 and Neuropathy G62.9 [facility] [address] [facility] [id number] [address] [place] [phone] August, Diabetes E11.9 [facility] [address] [facility] [id number] [address] [place] [address] [id number] Jul, Dental examination Z01.20 [facility] [address] [facility] [id number] [address] [place] [phone] May, Mild intellectual disability F70 [facility] [address] [facility] [id number] [address] [place] [phone] 07 May, 2017 Mild intellectual disability F70 ; High risk medication use Z79.899 ; Intermittent explosive disorder in adult F63.81 and Bipolar disorder, unspecified F31.9 [facility] [address] [id number] [address] [place] [phone] May, [facility] [address] [id number] [address] [place] [phone] May, [facility] [address] [id number] [address] [place] [phone] Apr, Type 2 diabetes mellitus wit h complication E11.8 ; Mild intellectual disability F70 ; Gastroesophageal reflux disease without esophagitis K21.9 ; Reactive airway disease, mild intermittent, uncomplicated J45.20 and Tobacco abuse Z72.0 [facility] [address] [id number] [address] [place] [phone] Apr, High risk medication use Z79 .899 ; Mild intellectual disability F70 ; Intermittent explosive disorder in adult F63.81 and Bipolar disorder, unspecified F31.9 [facility] [address] [id number] [place] [address] [id number] Mar, Encounter for dental exam an d cleaning w/o abnormal findings Z01.20 [facility] [address] [id number] [address] [place] [address] [phone] Mar, Dental examination Z01.20 [facility] [address] [id number] [address] [place] [id number] 12 Jan, 2017 [facility] [address] [id number] [address] [place] [phone] Jan, [facility] [address] [id number] [address] [place] [phone] 10 Jan, 2017 Mild intellectual disability F70 ; Bipolar disorder, unspecified F31.9 and Intermittent explosive disorder in adult F63.81 [facility] [address] [id number] [address] [place] [phone] 02 Jan, 2017 Diabetes E11.9 [facility] [address] [id number] [address] [place] [address] [id number] Dec, Encounter for dental examina tion and cleaning without abnormal findings Z01.20 [facility] [address] [id number] [address] [place] [phone] 12 Dec, 2016 Bipolar disorder, unspecifie d F31.9 ; Intermittent explosive disorder in adult F63.81 and Mild intellectual disability F70 [facility] [address] [id number] [address] [place] [phone] Nov, Diabetes E11.9 [facility] [address] [id number] [address] [place] [phone] Nov, [facility] [address] [id number] [address] [place] [phone] 14 Nov, 2016 Diabetes E11.9 and Colon can cer screening Z12.11 [facility] [address] [facility] [address] [id number] [id number] Sep, Dental examination Z01.20 [facility] [address] [id number] [address] [place] [address] [id number] Sep, Encounter for dental examina tion and cleaning without abnormal findings Z01.20 [facility] [address] [id number] [address] [place] [phone] 13 Sep, 2016 Bipolar disorder, unspecifie d F31.9 [facility] [address] [id number] [address] [place] [phone] Sep, Bipolar disorder, unspecifie d F31.9 [facility] [address] [id number] [address] [place] [id number] Jul, [facility] [address] [id number] [address] [place] [phone] Jul, Type 2 diabetes mellitus wit h complication E11.8 [facility] [address] [id number] [id number] Jun, Dental examination Z01.20 [facility] [address] [id number] [address] [place] [address] [id number] Jun, Encounter for dental examina tion and cleaning without abnormal findings Z01.20 [facility] [address] [id number] [address] [place] [phone] 18 Apr, 2016 Sports physical Z02.5 [facility] [address] [id number] [address] [place] [phone] 14 Mar, 2016 Bipolar disorder, in partial remission, most recent episode manic F31.73 and Intermittent explosive disorder in adult F63.81 [facility] [address] [id number] [address] [place] [id number] 08 Mar, 2016 [facility] [address] [id number] [address] [place] [phone] Mar, Diabetes E11.9 [facility] [address] [id number] [address] [place] [address] [id number] Feb, Encounter for dental examina tion and cleaning without abnormal findings Z01.20 [facility] [address] [id number] [address] [place] [phone] 22 Dec, 2015 Nocturnal hypoxemia G47.34 a nd Encounter for immunization Z23 [facility] [address] [id number] [address] [place] [phone] Dec, [facility] [address] [id number] [address] [place] [phone] Dec, [facility] [address] [id number] [address] [place] [phone] Dec, Bipolar disorder, unspecifie d F31.9 [facility] [address] [id number] [address] [place] [address] [id number] Oct, Encounter for dental examina tion and cleaning without abnormal findings Z01.20 [facility] [address] [id number] [id number] Oct, Dental examination Z01.20 [facility] [address] [id number] [address] [place] [phone] Oct, Diabetes E11.9 [facility] [address] [facility] [id number] [address] [place] [phone] Oct, Diabetes E11.9 ; Reactive ai rway disease, mild intermittent, uncomplicated J45.20 and Tobacco abuse Z72.0 [facility] [address] [facility] [id number] [address] [place] [phone] Sep, Bipolar disorder, unspecifie d F31.9 and Depression F32.9 [place] [address] [facility] [id number] [address] [place] [phone] Sep, [place] [address] [facility] [id number] [address] [place] [phone] August, Tinea pedis of both feet B35 .3 and DM w/o complication type II, uncontrolled E11.65 [place] [address] [facility] [id number] [address] [place] [phone] Jul, [place] [address] [facility] [id number] [address] [place] [phone] Jul, [place] [address] [facility] [id number] [address] [place] [phone] Jul, Obstructive sleep apnea G47. 33 [place] [address] [facility] [id number] [address] [place] [phone] Jun, Diabetes E11.9 [facility] [address] [facility] [id number] [address] [place] [phone] Jun, [facility] [address] [facility] [id number] [address] [place] [phone] Jun, [facility] [address] [facility] [id number] [address] [place] [phone] Jun, Bipolar disorder, unspecifie d F31.9 and Mental retardation F79 [facility] [address] [facility] [id number] [address] [place] [phone] Apr, [facility] [address] [facility] [id number] [address] [place] [phone] Feb, Diabetes E11.9 ; Encounter f or immunization Z23 ; Cough R05 and Nicotine abuse Z72.0 [place] [address] [phone] Jan, Bipolar disorder, unspecifie d F31.9 and Diabetes mellitus without mention of complication, type II or unspecified type, uncontrolled 250.02 [place] [address] [phone] Jan, [place] [address] [id number] Dec, Reactive airway disease 493. 90 and Enuresis 788.30 [place] [address] [address] Dec, [place] [address] [address] Nov, [place] [address] [address] Nov, [address] [address] Nov, Annual physical exam V70.0 ; Urinary incontinence 788.30 ; Diabetes 250.00 and Hypertension 401.[address] [address] Oct, Diabetes mellitus without me ntion of complication, type II or unspecified type, uncontrolled 250.02 [place] [address] [address] Oct, Diabetes mellitus without me ntion of complication, type II or unspecified type, uncontrolled 250.02 [place] [address] [id number] Oct, Diabetes mellitus without me ntion of complication, type II or unspecified type, uncontrolled 250.02 [place] [address] [phone] Oct, [facility] [address] [id number] [address] [place] [phone] Oct, [facility] [address] [id number] [address] [place] [phone] Oct, Bipolar disorder, unspecifie d 296.80 [facility] [address] [id number] [address] [place] [id number] Sep, Dental examination V72.2 [facility] [address] [id number] [address] [place] [id number] August, [facility] [address] [id number] [address] [place] [id number] August, Dental examination V72.2 [facility] [address] [id number] [address] [place] [id number] August, [facility] [address] [id number] [address] [place] [id number] Jul, [facility] [address] [id number] [address] [place] [id number] Jul, [facility] [facility] [address] [id number] [address] [place] [address] Jun, [facility] [address] [id number] [address] [place] [address] Jun, [facility] [address] [id number] [address] [place] [address] Jun, [facility] [address] [id number] [address] [place] [address] Jun, [facility] [address] [id number] [address] [place] [address] May, [facility] [address] [id number] [address] [place] [address] May, [facility] [address] [id number] [address] [place] [address] May, 2014 [facility] [address] [id number] [address] [place] [address], [place] [address] 16 May, 2014 [facility] [address] [id number] [address] [place] [address], [place] [address] 16 May, 2014 [facility] [address] [id number] [address] [place] [address], [place] [address] 16 May, 2014 [facility] [address] [id number] [address] [place] [address], [place] [address] 16 May, 2014 [facility] [address] [id number] [address] [place] [address], [place] [address] May, 2014 [facility] [address] [id number] [address] [place] [address], [place] [address] 16 May, 2014 [facility] [address] [id number] [address] [place] [address], [place] [address] 16 May, 2014 [facility] [address] [id number] [address] [place] [address], [place] [address] May, 2014 [facility] [address] [id number] [address] [place] [address], [place] [address] May, 2014 [facility] [address] [id number] [address] [place] [address], [place] [address] 16 May, 2014 [facility] [address] [id number] [address] [place] [address], [place] [address] May, 2014 [facility] [address] [id number] [address] [place] [address], [place] [address] May, [facility] [address] [id number] [address] [place] [address], [place] [address] Apr, [facility] [address] [id number] [address] [place] [address], [place] [address] Apr, [facility] [address] [id number] [address] [place] [address] Apr, [facility] [address] [id number] [address] [place] [address], [place] [address] Apr, [facility] [address] [id number] [address] [place] [address], [place] [address] Apr, [facility] [address] [id number] [address] [place] [address], [place] [address] Apr, [facility] [address] [id number] [address] [place] [address], [place] [address] Apr, [facility] [address] [id number] [address] [place] [address], [place] [address] Apr, [facility] [address] [id number] [address] [place] [address], [place] [address] Apr, [facility] [address] [id number] [address] [place] [address], [place] [address] Apr, [facility] [address] [id number] [address] [place] [address], [place] [address] Apr, [facility] [address] [id number] [address] [place] [address], [place] [address] Apr, [facility] [address] [id number] [address] [place] [address], [place] [address] Mar, [facility] [address] [id number] [address] [place] [address], [place] [address] Mar, [facility] [address] [id number] [address] [place] [address], [place] [address] Mar, [facility] [address] [id number] [address] [place] [address], [place] [address] Mar, [facility] [address] [id number] [address] [place] [address], [place] [address] Mar, [facility] [address] [id number] [address] [place] [address], [place] [address] Mar, [facility] [address] [id number] [address] [place] [address], [place] [address] 13 Feb, 2014 [facility] [address] [id number] [address] [place] [address], [place] [address] 13 Feb, 2014 [facility] [address] [id number] [address] [place] [address], [place] [address] 13 Feb, 2014 [facility] [address] [id number] [address] [place] [address], [place] [address] Feb, [facility] [address] [id number] [address] [place] [address], [place] [address] 14 Jan, 2014 [facility] [address] [id number] [address] [place] [address], [place] [address] 14 Jan, 2014 [facility] [address] [id number] [address] [place] [address], [place] [address] 14 Jan, 2014 [facility] [address] [id number] [address] [place] [address], [place] [address] 14 Jan, 2014 [facility] [address] [id number] [address] [place] [address], [place] [address] 22 Dec, 2013 [facility] [address] [id number] [address] [place] [address], [place] [address] 22 Dec, 2013 [facility] [address] [id number] [address] [place] [address], [place] [address] 15 Dec, 2013 [facility] [address] [id number] [address] [place] [address], [place] [address] 15 Dec, 2013 [facility] [address] [id number] [address] [place] [address], [place] [address] Nov, [facility] [address] [id number] [address] [place] [address], [place] [address] Nov, [facility] [address] [id number] [address] [place] [address], [place] [address] Nov, [facility] [address] [id number] [address] [place] [address], [place] [address] Nov, [facility] [address] [id number] [facility] [place] [address] Nov, [facility] [address] [id number] [facility] [place] [address] Nov, [facility] [address] [id number] [facility] [place] [address] Nov, [facility] [address] [id number] [address] [place] [address], [place] [address] Oct, [facility] [address] [id number] [address] [place] [address], [place] [address] Oct, [facility] [address] [id number] [address] [place] [address], [place] [address] Oct, [facility] [address] [id number] [address] [place] [address], [place] [address] Oct, [facility] [address] [id number] [address] [place] [address], [place] [address] Oct, [facility] [address] [id number] [address] [place] [address], [place] [address] Oct, [facility] [address] [id number] [address] [place] [address], [place] [address] Oct, [facility] [address] [id number] [address] [place] [address], [place] [address] Sep, [facility] [address] [id number] [address] [place] [address], [place] [address] Sep, [facility] [address] [id number] [address] [place] [address], [place] [address] Sep, [facility] [address] [id number] [address] [place] [address], [place] [address] Sep, [facility] [address] [id number] [address] [place] [address], [place] [address] Sep, [facility] [address] [id number] [address] [place] [address], [place] [address] Jul, [facility] [address] [id number] [facility] [place] [address] Jul, [facility] [address] [id number] [address] [place] [address], [place] [address] Jul, [facility] [address] [id number] [address] [place] [address], [place] [address] Jul, [facility] [address] [id number] [address] [place] [address], [place] [address] Jul, [facility] [address] [id number] [address] [place] [address], [place] [address] Jul, [facility] [address] [id number] [address] [place] [address], [place] [address] Jul, [facility] [address] [id number] [address] [place] [address], [place] [address] Jul, [facility] [address] [id number] [address] [place] [address], [place] [address] Jul, [facility] [address] [id number] [address] [place] [address], [place] [address] Jul, [facility] [address] [id number] [address] [place] [address], [place] [address] Jul, [facility] [address] [id number] [address] [place] [address], [place] [address] Jul, [facility] [address] [id number] [address] [place] [address], [place] [address] Jun, [facility] [address] [id number] [address] [place] [address], [place] [address] Jun, [facility] [address] [id number] [address] [place] [address], [place] [address] Jun, [facility] [address] [id number] [address] [place] [address], [place] [address] Jun, [facility] [address] [id number] [address] [place] [address], [place] [address] Jun, [facility] [address] [id number] [address] [place] [address], [place] [address] Jun, [facility] [address] [id number] [address] [place] [address], [place] [address] Jun, [facility] [address] [id number] [address] [place] [address], [place] [address] Jun, [facility] [address] [id number] [address] [place] [address], [place] [address] May, [facility] [address] [id number] [address] [place] [address], [place] [address] May, [facility] [address] [id number] [address] [place] [address], [place] [address] May, [facility] [address] [id number] [address] [place] [address], [place] [address] May, [facility] [address] [id number] [address] [place] [address], [place] [address] May, [facility] [address] [id number] [address] [place] [address], [place] [address] May, [facility] [address] [id number] [address] [place] [address], [place] [address] May, [facility] [address] [id number] [address] [place] [address], [place] [address] May, [facility] [address] [id number] [address] [place] [address], [place] [address] Apr, [facility] [address] [id number] [address] [place] [address], [place] [address] Apr, [facility] [address] [id number] [address] [place] [address], [place] [address] Apr, [facility] [address] [id number] [address] [place] [address], [place] [address] Apr, [facility] [address] [id number] [address] [place] [address], [place] [address] Mar, [facility] [address] [id number] [address] [place] [address], [place] [address] Mar, [facility] [address] [id number] [address] [place] [address], [place] [address] Mar, [facility] [address] [id number] [address] [place] [address], [place] [address] Feb, [facility] [address] [id number] [address] [place] [address], [place] [address] Feb, [facility] [address] [id number] [address] [place] [address], [place] [address] Feb, [facility] [address] [id number] [address] [place] [address], [place] [address] Feb, [facility] [address] [id number] [address] [place] [address], [place] [address] Feb, [facility] [address] [id number] [address] [place] [address], [place] [address] Feb, [facility] [address] [id number] [address] [place] [address], [place] [address] Jan, [facility] [address] [id number] [address] [place] [address], [place] [address] Jan, [facility] [address] [id number] [address] [place] [address], [place] [address] Jan, [facility] [address] [id number] [address] [place] [address], [place] [address] Jan, [facility] [address] [id number] [address] [place] [address], [place] [address] Jan, [facility] [address] [id number] [address] [place] [address], [place] [address] Jan, [facility] [address] [id number] [address] [place] [address], [place] [address] 2013 [facility] [address] [id number] [address] [place] [address], [place] [address] 25 Dec, 2012 [facility] [address] [id number] [address] [place] [address], [place] [address] 16 Dec, 2012 [facility] [address] [id number] [address] [place] [address], [place] [address] 10 Dec, 2012 [facility] [address] [id number] [address] [place] [address], [place] [address] 05 Dec, 2012 [facility] [address] [id number] [address] [place] [address], [place] [address] Nov, [facility] [address] [id number] [address] [place] [address], [place] [address] Nov, [facility] [address] [id number] [address] [place] [address], [place] [address] Nov, [facility] [address] [id number] [address] [place] [address], [place] [address] Nov, [facility] [address] [id number] [address] [place] [address], [place] [address] Nov, [facility] [address] [id number] [address] [place] [address], [place] [address] Nov, [facility] [address] [id number] [address] [place] [address], [place] [address] Nov, [facility] [address] [id number] [address] [place] [address], [place] [address] Oct, [facility] [address] [id number] [address] [place] [address], [place] [address] Oct, [facility] [address] [id number] [address] [place] [address], [place] [address] Oct, [facility] [address] [id number] [address] [place] [address], [place] [address] Oct, [facility] [address] [id number] [address] [place] [address], [place] [address] Oct, [facility] [address] [id number] [address] [place] [address], [place] [address] Oct, [facility] [address] [id number] [address] [place] [address], [place] [address] Oct, [facility] [address] [id number] [address] [place] [address], [place] [address] Oct, [facility] [address] [id number] [address] [place] [address], [place] [address] Sep, Suleiman PEREZ [address] [id number] COFFJOSE [place] [id number] August, [facility] [address] [id number] [address] [place] [address], [place] [address] August, [facility] [address] [id number] [address] [place] [address], [place] [address] Jul, [facility] [address] [id number] [address] [place] [address], [place] [address] Jul, [facility] [address] [id number] [address] [place] [address], [place] [address] Jul, [facility] [address] [id number] [address] [place] [address], [place] [address] Jul, [facility] [address] [id number] [address] [place] [address], [place] [address] 18 Jul, 2012 [facility] [address] [id number] [address] [place] [address], [place] [address] 17 Jul, 2012 [facility] [address] [id number] [address] [place] [address], [place] [address] 16 Jul, 2012 [facility] [address] [id number] [address] [place] [address], [place] [address] Jun, [facility] [address] [id number] [address] [place] [address], [place] [address] 18 Jun, 2012 [facility] [address] [id number] [address] [place] [address], [place] [address] 11 Jun, 2012 [facility] [address] [id number] [address] [place] [address], [place] [address] 04 Jun, 2012 [facility] [address] [id number] [address] [place] [address], [place] [address] 04 Jun, 2012 [facility] [address] [id number] [address] [place] [address], [place] [address] 19 May, 2012 [facility] [address] [id number] [address] [place] [address], [place] [address] 18 May, 2012 [facility] [address] [id number] [address] [place] [address], [place] [address] 04 May, 2012 [facility] [address] [id number] [address] [place] [address], [place] [address] 15 Apr, 2012 [facility] [address] [id number] [address] [place] [address], [place] [address] 14 Apr, 2012 [facility] [address] [id number] [address] [place] [address], [place] [address] 07 Apr, 2012 [facility] [address] [id number] [address] [place] [address], [place] [address] 31 Mar, 2012 [facility] [address] [id number] [address] [place] [address], [place] [address] 31 Mar, 2012 [facility] [address] [id number] [address] [place] [address], [place] [address] 13 Mar, 2012 [facility] [address] [id number] [address] [place] [address], [place] [address] 13 Mar, 2012 [facility] [address] [id number] [address] [place] [address], [place] [address] 10 Mar, 2012 [facility] [address] [id number] [address] [place] [address], [place] [address] Mar, [facility] [address] [id number] [address] [place] [address], [place] [address] Feb, [facility] [address] [id number] [address] [place] [address], [place] [address] Feb, [facility] [address] [id number] [address] [place] [address], [place] [address] Jan, [facility] [address] [id number] [address] [place] [address], [place] [address] Jan, [facility] [address] [id number] [address] [place] [address], [place] [address] Dec, [facility] [address] [id number] [address] [place] [address], [place] [address] Nov, [facility] [address] [id number] [address] [place] [address], [place] [address] Nov, [facility] [address] [id number] [address] [place] [address], [place] [address] Nov, [facility] [address] [id number] [address] [place] [address], [place] [address] Nov, [facility] [address] [id number] [address] [place] [address], [place] [address] Oct, [facility] [address] [id number] [address] [place] [address], [place] [address] Oct, [facility] [address] [id number] [address] [place] [address], [place] [address] Oct, [facility] [address] [id number] [address] [place] [address], [place] [address] Sep, [facility] [address] [id number] [address] [place] [address], [place] [address] Sep, [facility] [address] [id number] [address] [place] [address], [place] [address] Sep, [facility] [address] [id number] [address] [place] [address], [place] [address] August, [facility] [address] [id number] [address] [place] [address], [place] [address] August, [facility] [address] [id number] [address] [place] [address], [place] [address] Jul, [facility] [address] [id number] [address] [place] [address], [place] [address] Jul, [facility] [address] [id number] [address] [place] [address], [place] [address] Jul, [facility] [address] [id number] [address] [place] [address], [place] [address] Jul, [facility] [address] [id number] [address] [place] [address], [place] [address] Jun, [facility] [address] [id number] [address] [place] [address], [place] [address] May, [facility] [address] [id number] [address] [place] [address], [place] [address] Apr, [facility] [address] [id number] [address] [place] [address], [place] [address] Apr, [facility] [address] [id number] [address] [place] [address], [place] [address] Apr, [facility] [address] [id number] [address] [place] [address], [place] [address] Apr, [facility] [address] [id number] [address] [place] [address], [place] [address] Apr, [facility] [address] [id number] [address] [place] [address], [place] [address] Apr, [facility] [address] [id number] [address] [place] [address], [place] [address] Mar, [facility] [address] [id number] [address] [place] [address], [place] [address] Mar, [facility] [address] [id number] [address] [place] [address], [place] [address] 29 Feb, 2011 [facility] [address] [id number] [address] [place] [address], [place] [address] Feb, [facility] [address] [id number] [address] [place] [address], [place] [address] Feb, [facility] [address] [id number] [address] [place] [address], [place] [address] Feb, [facility] [address] [id number] [address] [place] [address], [place] [address] Jan, [facility] [address] [id number] [address] [place] [address], [place] [address] Jan, [facility] [address] [id number] [address] [place] [address], [place] [address] Jan, [facility] [address] [id number] [address] [place] [address], [place] [address] Jan, [facility] [address] [id number] [address] [place] [address], [place] [address] Nov, [facility] [address] [id number] [address] [place] [address], [place] [address] Mar, [facility] [address] [id number] [address] [place] [address], [place] [address] Mar, [facility] [address] [id number] [address] [place] [address], [place] [address] 30 Feb, 2010 [facility] [address] [id number] [address] [place] [address], [place] [address] 15 Feb, 2010 [facility] [address] [id number] [address] [place] [address], [place] [address] Jan, [facility] [address] [id number] [address] [place] [address], [place] [address] Jan, [facility] [address] [id number] [address] [place] [address], [place] [address] Sep, [facility] [address] [id number] [address] [place] [address] 16 May, 2009 [facility] [address] [id number] [address] [place] [address] Apr, [facility] [address] [id number] [address] [place] [address] Mar, [facility] [address] [id number] [address] [place] [id number] Feb, [facility] [address] [id number] [address] [place] [id number] Feb, [facility] [address] [id number] [address] [place] [id number] Feb, [facility] [address] [id number] [address] [place] [phone] Jan, [facility] [address] [id number] [address] [place] [id number] Jan, [facility] [address] [id number] [address] [place] [id number] Jan, [facility] [address] [id number] [address] [place] [phone] Jan, [facility] [address] [id number] [address] [place] [id number] August, IMMUNIZATIONS No Known Immunizations SOCIAL HISTORY [...] wound when playing with brother, age 6 Surgical History screening colonoscopy colon mass identif ied 09/2019 Hospitalization History surgery Hospitalization History [facility], in[facility] tient treatment few times for BH
--- OUTSIDE RECORDS SUMMARY | 2019-11-05 07:53 | XMS REPORT ---
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 Active 24354753 Problem Hypertensive retinopathy of both eyes H35.033 Active 8201372 Problem Open-angle glaucoma of both eyes, unspecified glaucoma stage, unspecified open-angle glaucoma type H40.10X0 Acti ve 28065135 Problem Obstructive sleep apnea G47.33 Active 07914424 Problem Type 2 diabetes mellitus with complication E11.8 Active 95042227 Problem Intermittent explosive disorder in adult F63.81 Active 31093712 Problem Bipolar disorder, unspecified F31.9 Active 38420942 Problem Mild intellectual disability F70 A ctive 92206422 Problem Other specified urinary incontinence N39.498 Active 871031505 Problem Diabetes E11.9 Active 11763017 Problem Type 2 diabetes mellitus wit h diabetic neuropathy, unspecified whether half-way insulin use E11.40 Active 389505 315418186 Problem Essential hypertension I10 Active 43111493 Problem Reactive airway disease, mild intermittent, uncomplicated J45.20 Active 659669878 Problem Gastroesophageal reflux disease without esophagitis K21.9 Active 638886391 Problem Other diabetic neurological complication associated with type 2 diabetes mellitus E11.49 Active 814401481 Problem Neuropathy G62.9 Active 981173109 ALLERGIES No Information ENCOUNTERS Encounter Location Date Diagnosis [facility] [address] [facility] [id number] [address] [place] [id number] Dec, OUTREACH [facility] [id number] [place] [id number] Nov, [facility] [address] [facility] [id number] [address] [place] [id number] Oct, [facility] [address] [facility] [id number] [address] [place] [id number] Sep, [facility] [address] [place] [id number] [address] [place] [phone] Sep, [facility] [address] [place] [id number] [address] [place] [id number] Sep, [facility] [address] [place] [id number] Sep, Essential hypertension I10 [place] [address] [address] August, Intermittent explosive disor salvatore in adult F63.81 ; Bipolar disorder, unspecified F31.9 and Mild intellectual disability F70 [place] [address] [place] [id number] Jul, Type 2 diabetes mellitus wit h diabetic neuropathy, unspecified whether half-way insulin use E11.40 and Colon cancer screening Z12.11 [place] [address] [place] [id number] [address] [place] [id number] Jul, Type 2 diabetes mellitus wit h diabetic neuropathy, unspecified whether health technician insulin use E11.40 and Tinea pedis, unspecified laterality B35.3 [facility] [address] [place] [id number] Jun, [facility] [address] [place] [id number] [address] [place] [id number] Jun, [facility] [address] [place] [id number] [address] [place] [id number] Jun, Dysuria R30.0 [facility] [address] [place] [id number] [address] [place] [id number] Jun, [facility] [address] [place] [id number] [address] [place] [id number] May, Influenza J11.1 [facility] [address] [id number] [address] [place] [id number] 13 May, 2019 Intermittent explosive disor salvatore in adult F63.81 [facility] [address] [facility] [id number] [address] [place] [id number] 12 May, 2019 [facility] [address] [facility] [id number] [address] [place] [id number] Apr, Intermittent explosive disor slavatore in adult F63.81 ; Bipolar disorder, unspecified F31.9 and Mild intellectual disability F70 OUTRE[facility] [id number] [place] [id number] Apr, Oral health maintenance stat us requiring routine preventive dental care K08.9 [facility] [address] [facility] [id number] [address] [place] [id number] Apr, Type 2 diabetes mellitus wit h complication E11.8 ; History of test for hearing Z92.89 ; Colon cancer screening Z12.11 ; Other specified urinary incontinence N39.498 and Impacted cerumen, right ear H61.21 [facility] [address] [facility] [id number] [address] [place] [id number] 10 Apr, 2019 Onychomycosis B35.1 ; Other diabetic neurological complication associated with type 2 diabetes mellitus E11.49 and Tinea pedis of both feet B35.3 [facility] [address] [facility] [id number] [address] [place] [id number] Feb, [facility] [address] [facility] [id number] [address] [place] [phone] Jan, [facility] [address] [facility] [id number] [address] [place] [phone] Jan, [facility] [address] [facility] [id number] [address] [place] [phone] Jan, [facility] [address] [facility] [id number] [address] [place] [phone] Jan, [facility] [address] [facility] [id number] [address] [place] [id number] Jan, [facility] [address] [facility] [id number] [address] [place] [phone] Jan, [facility] [address] [facility] [id number] [address] [place] [id number] Jan, [facility] [address] [place] [id number] [address] [place] [id number] Jan, Anemia D64.9 [facility] [address] [facility] [id number] [place] [id number] Jan, Dental examination Z01.20 an d Oral health maintenance status requiring routine preventive dental care K08.9 [facility] [address] [facility] [id number] [address] [place] [id number] Jan, Onychomycosis B35.1 and Othe r diabetic neurological complication associated with type 2 diabetes mellitus E11.49 [place] [address] [place] [id number] [address] [place] [id number] Jan, Anemia D64.9 [place] [address] [place] [id number] [address] [place] [id number] Jan, [facility] [address] [place] [id number] [address] [place] [id number] Dec, Urinary tract infection with out hematuria, site unspecified N39.0 [place] [address] [place] [id number] [address] [place] [id number] Dec, Type 2 diabetes mellitus wit h complication E11.8 ; Urinary tract infection without hematuria, site unspecified N39.0 ; Impacted cerumen of both ears H61.23 ; Encounter for immunization Z23 and Hyponatremia E87.1 [place] [address] [facility] [id number] [address] [place] [id number] Dec, Intermittent explosive disor salvatore in adult F63.81 ; Dysuria R30.0 ; Type 2 diabetes mellitus with complication E11.8 ; Bipolar disorder, unspecified F31.9 and Mild intellectual disability F70 [facility] [address] [facility] [id number] [address] [place] [id number] Dec, Dysuria R30.0 [facility] [address] [facility] [id number] [address] [place] [id number] Dec, Intermittent explosive disor salvatore in adult F63.81 ; Bipolar disorder, unspecified F31.9 and Mild intellectual disability F70 [facility] [address] [facility] [id number] [address] [place] [id number] Nov, [facility] [address] [facility] [id number] [address] [place] [phone] Oct, [facility]ACH [facility] [address] [place] [id number] [place] [id number] Oct, Oral health maintenance stat us requiring routine preventive dental care K08.9 [facility] [address] [facility] [id number] [address] [place] [id number] August, Intermittent explosive disor salvatore in adult F63.81 ; Bipolar disorder, unspecified F31.9 and Mild intellectual disability F70 [facility] [address] [facility] [id number] [address] [place] [id number] August, Dental caries K02.9 [facility] [address] [facility] [id number] [address] [place] [id number] Jul, Onychomycosis B35.1 ; Other diabetic neurological complication associated with type 2 diabetes mellitus E11.49 and Tinea pedis of both feet B35.3 [facility] [address] [id number] [address] [place] [address] [id number] Jul, Caries K02.9 [facility] [address] [facility] [id number] [address] [place] [id number] Jul, Type 2 diabetes mellitus wit h complication E11.8 ; Tobacco abuse Z72.0 and Bipolar disorder, unspecified F31.9 [facility] [address] [facility] [id number] [address] [place] [id number] Jun, [facility] [address] [facility] [id number] [address] [place] [address] [id number] Jun, Dental examination Z01.20 an d Oral health maintenance status requiring routine preventive dental care K08.9 [facility] [address] [place] [id number] 11 May, 2018 Bilateral impacted cerumen H 61.23 [place] [address] [place] [id number] [address] [place] [id number] Apr, Bipolar disorder, unspecifie d F31.9 ; Intermittent explosive disorder in adult F63.81 ; Type 2 diabetes mellitus with complication E11.8 ; Tobacco abuse Z72.0 and Colon cancer screening Z12.11 [place] [address] [place] [id number] [address] [place] [id number] Apr, Onychomycosis B35.1 and Othe r diabetic neurological complication associated with type 2 diabetes mellitus E11.49 [place] [address] [place] [id number] [address] [place] [id number] Apr, Intermittent explosive disor salvatore in adult F63.81 ; Bipolar disorder, unspecified F31.9 and Mild intellectual disability F70 [place] [address] [place] [id number] Mar, Diabetes E11.9 [facility] [address] [place] [id number] Jan, Encounter for immunization Z 23 [place] [address] [place] [id number] [address] [place] [phone] Jan, Tinea pedis of both feet B35 .3 ; Other diabetic neurological complication associated with type 2 diabetes mellitus E11.49 and Onychomycosis B35.1 [place] [address] [place] [id number] Nov, Type 2 diabetes mellitus wit h complication E11.8 [place] [address] [place] [id number] [address] [place] [id number] Nov, [facility] [address] [facility] [id number] [address] [place] [id number] Oct, Intermittent explosive disor salvatore in adult F63.81 ; Bipolar disorder, unspecified F31.9 and Mild intellectual disability F70 [facility] [address] [facility] [id number] [address] [place] [id number] Oct, [facility] [address] [id number] [address] [place] [address] [id number] Oct, Dental examination Z01.20 [facility] [address] [facility] [id number] [address] [place] [id number] Oct, Onychomycosis B35.1 and Othe r diabetic neurological complication associated with type 2 diabetes mellitus E11.49 [place] [address] [facility] [id number] [address] [place] [id number] Sep, Type 2 diabetes mellitus wit h complication E11.8 and Colon cancer screening Z12.11 [facility] [address] [id number] [address] [place] [id number] 18 Sep, 2017 Type 2 diabetes mellitus wit h complication E11.8 ; Colon cancer screening Z12.11 and Neuropathy G62.9 [facility] [address] [facility] [id number] [address] [place] [id number] August, Diabetes E11.9 [facility] [address] [id number] [address] [place] [address] [id number] Jul, Dental examination Z01.20 [facility] [address] [id number] [address] [place] [id number] 27 May, 2017 Mild intellectual disability F70 [facility] [address] [facility] [id number] [address] [place] [id number] 07 May, 2017 Mild intellectual disability F70 ; High risk medication use Z79.899 ; Intermittent explosive disorder in adult F63.81 and Bipolar disorder, unspecified F31.9 [facility] [address] [facility] [id number] [address] [place] [id number] May, [facility] [address] [id number] [address] [place] [id number] May, [facility] [address] [id number] [address] [place] [id number] Apr, Type 2 diabetes mellitus wit h complication E11.8 ; Mild intellectual disability F70 ; Gastroesophageal reflux disease without esophagitis K21.9 ; Reactive airway disease, mild intermittent, uncomplicated J45.20 and Tobacco abuse Z72.0 [facility] [address] [id number] [address] [place] [id number] Apr, High risk medication use Z79 .899 ; Mild intellectual disability F70 ; Intermittent explosive disorder in adult F63.81 and Bipolar disorder, unspecified F31.9 [facility] [address] [id number] [address] [place] [address] [id number] Mar, Dental examination Z01.20 [facility] [address] [id number] [address] [place] [address] [id number] Mar, Encounter for dental exam an d cleaning w/o abnormal findings Z01.20 [facility] [address] [id number] [address] [place] [id number] 12 Jan, 2017 [facility] [address] [id number] [address] [place] [phone] Jan, [facility] [address] [id number] [address] [place] [phone] Jan, Mild intellectual disability F70 ; Bipolar disorder, unspecified F31.9 and Intermittent explosive disorder in adult F63.81 [facility] [address] [id number] [address] [place] [id number] 02 Jan, 2017 Diabetes E11.9 [facility] [address] [id number] [address] [place] [id number] 13 Dec, 2016 Encounter for dental examina tion and cleaning without abnormal findings Z01.20 [facility] [address] [id number] [address] [place], [place] [phone] Dec, Bipolar disorder, unspecifie d F31.9 ; Intermittent explosive disorder in adult F63.81 and Mild intellectual disability F70 [facility] [address] [id number] [address] [place] [phone] Nov, Diabetes E11.9 [facility] [address] [facility] [id number] [address] [place] [phone] Nov, [facility] [address] [facility] [id number] [address] [place] [id number] Nov, Diabetes E11.9 and Colon can cer screening Z12.11 [place] [id number] [facility] [id number] [id number] Sep, Dental examination Z01.20 [facility] [address] [id number] [address] [place] [address] [id number] Sep, Encounter for dental examina tion and cleaning without abnormal findings Z01.20 [place] [id number] [id number] [address] [place] [id number] Sep, Bipolar disorder, unspecifie d F31.9 [place] [address] [facility] [id number] [address] [place] [id number] Sep, Bipolar disorder, unspecifie d F31.9 [place] [address] [facility] [id number] [address] [place] [phone] Jul, [facility] [address] [facility] [id number] [address] [place] [id number] Jul, Type 2 diabetes mellitus wit h complication E11.[address] [facility] [address] [id number] [id number] 15 Jun, 2016 Dental examination Z01.20 [facility] [address] [id number] [address] [place] [address] [id number] 15 Jun, 2016 Encounter for dental examina tion and cleaning without abnormal findings Z01.20 [facility] [address] [id number] [address] [place] [id number] 18 Apr, 2016 Sports physical Z02.5 [facility] [address] [id number] [address] [place] [id number] 14 Mar, 2016 Bipolar disorder, in partial remission, most recent episode manic F31.73 and Intermittent explosive disorder in adult F63.81 [facility] [address] [id number] [address] [place] [id number] 08 Mar, 2016 [facility] [address] [id number] [address] [place] [id number] 06 Mar, 2016 Diabetes E11.9 [facility] [address] [id number] [address] [place] [address] [id number] Feb, Encounter for dental examina tion and cleaning without abnormal findings Z01.20 [facility] [address] [id number] [address] [place] [id number] 22 Dec, 2015 Nocturnal hypoxemia G47.34 a nd Encounter for immunization Z23 [facility] [address] [id number] [address] [place] [id number] 15 Dec, 2015 [facility] [address] [id number] [address] [place] [id number] Dec, [facility] [address] [id number] [address] [place] [id number] Dec, Bipolar disorder, unspecifie d F31.9 [facility] [address] [id number] [address] [place] [address] [id number] Oct, Encounter for dental examina tion and cleaning without abnormal findings Z01.20 [facility] [id number] [place] [address] [id number] Oct, Dental examination Z01.20 [facility] [address] [id number] [address] [place] [phone] Oct, Diabetes E11.9 [facility] [address] [id number] [address] [place] [id number] Oct, Diabetes E11.9 ; Reactive ai rway disease, mild intermittent, uncomplicated J45.20 and Tobacco abuse Z72.0 [place] [address] [address] Sep, Bipolar disorder, unspecifie d F31.9 and Depression F32.9 [place] [address] [address] Sep, [place] [address] [address] August, Tinea pedis of both feet B35 .3 and DM w/o complication type II, uncontrolled E11.65 [place] [address] [address] Jul, [place] [address] [address] Jul, [place] [address] [address] Jul, Obstructive sleep apnea G47. 33 [place] [address] [address] Jun, Diabetes E11.9 [place] [address] [address] Jun, [place] [address] [id number] Jun, [place] [address] [address] Jun, Bipolar disorder, unspecifie d F31.9 and Mental retardation F79 [place] [address] [address] Apr, [place] [address] [address] Feb, Diabetes E11.9 ; Encounter f or immunization Z23 ; Cough R05 and Nicotine abuse Z72.0 [place] [address] [place] [id number] [address] [place] [id number] Jan, Bipolar disorder, unspecifie d F31.9 and Diabetes mellitus without mention of complication, type II or unspecified type, uncontrolled 250.02 [place] [address] [place] [id number] [place] [id number] Jan, [place] [address] [address] Dec, Reactive airway disease 493. 90 and Enuresis 788.30 [place] [address] [place] [id number] [place] [phone] Dec, [place] [address] [address] Nov, [place] [address] [address] Nov, [place] [address] [address] Nov, Annual physical exam V70.0 ; Urinary incontinence 788.30 ; Diabetes 250.00 and Hypertension 401.9 [place] [address] [address] Oct, Diabetes mellitus without me ntion of complication, type II or unspecified type, uncontrolled 250.02 [place] [address] [place] [id number] [address] [place] [id number] Oct, Diabetes mellitus without me ntion of complication, type II or unspecified type, uncontrolled 250.02 [place] [address] [place] [id number] [place] [phone] Oct, Diabetes mellitus without me ntion of complication, type II or unspecified type, uncontrolled 250.02 [place] [address] [place] [id number] [place] [phone] Oct, [place] [address] [address] Oct, [facility] [address] [id number] [address] [place] [id number] Oct, Bipolar disorder, unspecifie d 296.80 [facility] [address] [id number] [address] [place] [address] [id number] Sep, Dental examination V72.2 [facility] [address] [id number] [address] [place] [id number] August, [facility] [address] [id number] [address] [place] [id number] August, Dental examination V72.2 [facility] [address] [id number] [address] [place] [id number] August, [facility] [address] [id number] [address] [place] [phone] Jul, [facility] [address] [id number] [address] [place] [id number] Jul, [facility] [address] [id number] [address] [place] [id number] Jun, [facility] [address] [id number] [address] [place] [id number] Jun, [facility] [address] [id number] [address] [place] [id number] Jun, [facility] [address] [id number] [address] [place] [id number] Jun, [facility] [address] [id number] [address] [place] [id number] May, [facility] [address] [id number] [address] [place] [id number] May, [facility] [address] [id number] [address] [place] [id number] May, [facility] [address] [id number] [address] [place] [id number] 16 May, 2014 [facility] [address] [id number] [address] [place] [address], [place] [address] 16 May, 2014 [facility] [address] [id number] [address] [place] [address], [place] [address] 16 May, 2014 [facility] [address] [id number] [address] [place] [address], [place] [address] 16 May, 2014 [facility] [address] [id number] [address] [place] [address], [place] [address] May, 2014 [facility] [address] [id number] [address] [place] [address], [place] [address] May, 2014 [facility] [address] [id number] [address] [place] [address], [place] [address] 16 May, 2014 [facility] [address] [id number] [address] [place] [address], [place] [address] 16 May, 2014 [facility] [address] [id number] [address] [place] [address], [place] [address] 16 May, 2014 [facility] [address] [id number] [address] [place] [address], [place] [address] May, 2014 [facility] [address] [id number] [address] [place] [address], [place] [address] 16 May, 2014 [facility] [address] [id number] [address] [place] [address], [place] [address] May, 2014 [facility] [address] [id number] [address] [place] [address], [place] [address] Apr, [facility] [address] [id number] [address] [place] [address], [place] [address] Apr, [facility] [address] [id number] [address] [place] [address], [place] [address] Apr, [facility] [address] [id number] [address] [place] [id number] Apr, [facility] [address] [id number] [address] [place] [address], [place] [address] Apr, [facility] [address] [id number] [address] [place] [address], [place] [address] Apr, [facility] [address] [id number] [address] [place] [address], [place] [address] Apr, [facility] [address] [id number] [address] [place] [address], [place] [address] Apr, [facility] [address] [id number] [address] [place] [address], [place] [address] Apr, [facility] [address] [id number] [address] [place] [address], [place] [address] Apr, [facility] [address] [id number] [address] [place] [address], [place] [address] Apr, [facility] [address] [id number] [address] [place] [address], [place] [address] Apr, [facility] [address] [id number] [address] [place] [address], [place] [address] Mar, [facility] [address] [id number] [address] [place] [address], [place] [address] Mar, [facility] [address] [id number] [address] [place] [address], [place] [address] Mar, [facility] [address] [id number] [address] [place] [address], [place] [address] Mar, [facility] [address] [id number] [address] [place] [address], [place] [address] Mar, [facility] [address] [id number] [address] [place] [address], [place] [address] Mar, [facility] [address] [id number] [address] [place] [address], [place] [address] Feb, [facility] [address] [id number] [address] [place] [address], [place] [address] 13 Feb, 2014 [facility] [address] [id number] [address] [place] [address], [place] [address] Feb, [facility] [address] [id number] [address] [place] [address], [place] [address] Feb, [facility] [address] [id number] [address] [place] [address], [place] [address] 14 Jan, 2014 [facility] [address] [id number] [address] [place] [address], [place] [address] 14 Jan, 2014 [facility] [address] [id number] [address] [place] [address], [place] [address] 14 Jan, 2014 [facility] [address] [id number] [address] [place] [address], [place] [address] 14 Jan, 2014 [facility] [address] [id number] [address] [place] [address], [place] [address] 22 Dec, 2013 [facility] [address] [id number] [address] [place] [address], [place] [address] 22 Dec, 2013 [facility] [address] [id number] [address] [place] [address], [place] [address] 15 Dec, 2013 [facility] [address] [id number] [address] [place] [address], [place] [address] 15 Dec, 2013 [facility] [address] [id number] [address] [place] [address], [place] [address] Nov, [facility] [address] [id number] [address] [place] [address], [place] [address] Nov, [facility] [address] [id number] [address] [place] [address], [place] [address] Nov, [facility] [address] [id number] [address] [place] [address], [place] [address] Nov, [facility] [address] [id number] [address] [place] [address], [place] [address] Nov, [facility] [address] [id number] [facility] [place] [address] Nov, [facility] [address] [id number] [address] [place] [address], [place] [address] Nov, [facility] [address] [id number] [address] [place] [address], [place] [address] Oct, [facility] [address] [id number] [address] [place] [address], [place] [address] Oct, [facility] [address] [id number] [address] [place] [address], [place] [address] Oct, [facility] [address] [id number] [address] [place] [address], [place] [address] Oct, [facility] [address] [id number] [address] [place] [address], [place] [address] Oct, [facility] [address] [id number] [address] [place] [address], [place] [address] Oct, [facility] [address] [id number] [address] [place] [address], [place] [address] Oct, [facility] [address] [id number] [address] [place] [address], [place] [address] Sep, [facility] [address] [id number] [address] [place] [address], [place] [address] Sep, [facility] [address] [id number] [address] [place] [address], [place] [address] Sep, [facility] [address] [id number] [address] [place] [address], [place] [address] Sep, [facility] [address] [id number] [address] [place] [address], [place] [address] Sep, [facility] [address] [id number] [address] [place] [address], [place] [address] Jul, [facility] [address] [id number] [address] [place] [address], [place] [address] Jul, [facility] [address] [id number] [facility] [place] [address] Jul, [facility] [address] [id number] [address] [place] [address], [place] [address] Jul, [facility] [address] [id number] [address] [place] [address], [place] [address] Jul, [facility] [address] [id number] [address] [place] [address], [place] [address] Jul, [facility] [address] [id number] [address] [place] [address], [place] [address] Jul, [facility] [address] [id number] [address] [place] [address], [place] [address] Jul, [facility] [address] [id number] [address] [place] [address], [place] [address] Jul, [facility] [address] [id number] [address] [place] [address], [place] [address] Jul, [facility] [address] [id number] [address] [place] [address], [place] [address] Jul, [facility] [address] [id number] [address] [place] [address], [place] [address] Jul, [facility] [address] [id number] [address] [place] [address], [place] [address] Jun, [facility] [address] [id number] [address] [place] [address], [place] [address] Jun, [facility] [address] [id number] [address] [place] [address], [place] [address] Jun, [facility] [address] [id number] [address] [place] [address], [place] [address] Jun, [facility] [address] [id number] [address] [place] [address], [place] [address] Jun, [facility] [address] [id number] [address] [place] [address], [place] [address] Jun, [facility] [address] [id number] [address] [place] [address], [place] [address] Jun, [facility] [address] [id number] [address] [place] [address], [place] [address] Jun, [facility] [address] [id number] [address] [place] [address], [place] [address] May, [facility] [address] [id number] [address] [place] [address], [place] [address] May, [facility] [address] [id number] [address] [place] [address], [place] [address] May, [facility] [address] [id number] [address] [place] [address], [place] [address] May, [facility] [address] [id number] [address] [place] [address], [place] [address] May, [facility] [address] [id number] [address] [place] [address], [place] [address] May, [facility] [address] [id number] [address] [place] [address], [place] [address] May, [facility] [address] [id number] [address] [place] [address], [place] [address] May, [facility] [address] [id number] [address] [place] [address], [place] [address] Apr, [facility] [address] [id number] [address] [place] [address], [place] [address] Apr, [facility] [address] [id number] [address] [place] [address], [place] [address] Apr, [facility] [address] [id number] [address] [place] [address], [place] [address] Apr, [facility] [address] [id number] [address] [place] [address], [place] [address] Mar, [facility] [address] [id number] [address] [place] [address], [place] [address] Mar, [facility] [address] [id number] [address] [place] [address], [place] [address] Mar, [facility] [address] [id number] [address] [place] [address], [place] [address] Feb, [facility] [address] [id number] [address] [place] [address], [place] [address] Feb, [facility] [address] [id number] [address] [place] [address], [place] [address] Feb, [facility] [address] [id number] [address] [place] [address], [place] [address] Feb, [facility] [address] [id number] [address] [place] [address], [place] [address] Feb, [facility] [address] [id number] [address] [place] [address], [place] [address] Feb, [facility] [address] [id number] [address] [place] [address], [place] [address] Jan, [facility] [address] [id number] [address] [place] [address], [place] [address] Jan, [facility] [address] [id number] [address] [place] [address], [place] [address] Jan, [facility] [address] [id number] [address] [place] [id number] Jan, [facility] [address] [id number] [address] [place] [address], [place] [address] Jan, [facility] [address] [id number] [address] [place] [address], [place] [address] Jan, [facility] [address] [id number] [address] [place] [address], [place] [address] Jan, [facility] [address] [id number] [address] [place] [address], [place] [address] 25 Dec, 2012 [facility] [address] [id number] [address] [place] [address], [place] [address] 16 Dec, 2012 [facility] [address] [id number] [address] [place] [address], [place] [address] Dec, [facility] [address] [id number] [address] [place] [address], [place] [address] 05 Dec, 2012 [facility] [address] [id number] [address] [place] [address], [place] [address] Nov, [facility] [address] [id number] [address] [place] [address], [place] [address] Nov, [facility] [address] [id number] [address] [place] [address], [place] [address] Nov, [facility] [address] [id number] [address] [place] [address], [place] [address] Nov, [facility] [address] [id number] [address] [place] [address], [place] [address] Nov, [facility] [address] [id number] [address] [place] [address], [place] [address] Nov, [facility] [address] [id number] [address] [place] [address], [place] [address] Nov, [facility] [address] [id number] [address] [place] [address], [place] [address] Oct, [facility] [address] [id number] [address] [place] [address], [place] [address] Oct, [facility] [address] [id number] [address] [place] [address], [place] [address] Oct, [facility] [address] [id number] [address] [place] [address], [place] [address] Oct, [facility] [address] [id number] [address] [place] [address], [place] [address] Oct, [facility] [address] [id number] [address] [place] [address], [place] [address] 16 Oct, 2012 [facility] [address] [id number] [address] [place] [address], [place] [address] Oct, [facility] [address] [id number] [address] [place] [address], [place] [address] Oct, [facility] [address] [id number] [address] [place] [address], [place] [address] Sep, mananzCHBERTHA HATFIELDJO[facility] [address] [id number] COFFJOSE [place] [id number] August, [facility] [address] [id number] [address] [place] [address], [place] [address] August, [facility] [address] [id number] [address] [place] [address], [place] [address] Jul, [facility] [address] [id number] [address] [place] [address], [place] [address] Jul, [facility] [address] [id number] [address] [place] [address], [place] [address] Jul, [facility] [address] [id number] [address] [place] [address], [place] [address] Jul, [facility] [address] [id number] [address] [place] [address], [place] [address] Jul, [facility] [address] [id number] [address] [place] [address], [place] [address] 17 Jul, 2012 [facility] [address] [id number] [address] [place] [address], [place] [address] 16 Jul, 2012 [facility] [address] [id number] [address] [place] [address], [place] [address] Jun, [facility] [address] [id number] [address] [place] [address], [place] [address] Jun, [facility] [address] [id number] [address] [place] [address], [place] [address] 11 Jun, 2012 [facility] [address] [id number] [address] [place] [address], [place] [address] 04 Jun, 2012 [facility] [address] [id number] [address] [place] [address], [place] [address] 04 Jun, 2012 [facility] [address] [id number] [address] [place] [address], [place] [address] 19 May, 2012 [facility] [address] [id number] [address] [place] [address], [place] [address] 18 May, 2012 [facility] [address] [id number] [address] [place] [address], [place] [address] 04 May, 2012 [facility] [address] [id number] [address] [place] [address], [place] [address] 15 Apr, 2012 [facility] [address] [id number] [address] [place] [address], [place] [address] 14 Apr, 2012 [facility] [address] [id number] [address] [place] [address], [place] [address] 07 Apr, 2012 [facility] [address] [id number] [address] [place] [address], [place] [address] 31 Mar, 2012 [facility] [address] [id number] [address] [place] [address], [place] [address] 31 Mar, 2012 [facility] [address] [id number] [address] [place] [address], [place] [address] 13 Mar, 2012 [facility] [address] [id number] [address] [place] [address], [place] [id number] 13 Mar, 2012 [facility] [address] [id number] [address] [place] [address], [place] [id number] 10 Mar, 2012 [facility] [address] [id number] [address] [place] [address], [place] [id number] 10 Mar, 2012 [facility] [address] [id number] [address] [place] [address], [place] [id number] Feb, [facility] [address] [id number] [address] [place] [address], [place] [id number] Feb, [facility] [address] [id number] [address] [place] [address], [place] [id number] Jan, [facility] [address] [id number] [address] [place] [address], [place] [id number] Jan, [facility] [address] [id number] [address] [place] [address], [place] [id number] Dec, [facility] [address] [id number] [address] [place] [address], [place] [id number] Nov, [facility] [address] [id number] [address] [place] [address], [place] [id number] Nov, [facility] [address] [id number] [address] [place] [address], [place] [id number] Nov, [facility] [address] [id number] [address] [place] [address], [place] [id number] Nov, [facility] [address] [id number] [address] [place] [address], [place] [id number] Oct, [facility] [address] [id number] [address] [place] [address], [place] [id number] Oct, [facility] [address] [id number] [address] [place] [address], [place] [id number] Oct, [facility] [address] [id number] [address] [place] [address], [place] [id number] Sep, [facility] [address] [id number] [address] [place] [address], [place] [id number] Sep, [facility] [address] [id number] [address] [place] [address], [place] [address] Sep, [facility] [address] [id number] [address] [place] [address], [place] [id number] August, [facility] [address] [id number] [address] [place] [address], [place] [id number] August, [facility] [address] [id number] [address] [place] [address], [place] [id number] Jul, [facility] [address] [id number] [address] [place] [address], [place] [id number] Jul, [facility] [address] [id number] [address] [place] [address], [place] [id number] Jul, [facility] [address] [id number] [address] [place] [address], [place] [id number] Jul, [facility] [address] [id number] [address] [place] [address], [place] [id number] Jun, [facility] [address] [id number] [address] [place] [address], [place] [id number] May, [facility] [address] [id number] [address] [place] [address], [place] [id number] Apr, [facility] [address] [id number] [address] [place] [address], [place] [id number] Apr, [facility] [address] [id number] [address] [place] [address], [place] [id number] Apr, [facility] [address] [id number] [address] [place] [address], [place] [id number] Apr, [facility] [address] [id number] [address] [place] [address], [place] [id number] Apr, [facility] [address] [id number] [address] [place] [address], [place] [id number] Apr, [facility] [address] [id number] [address] [place] [address], [place] [id number] Mar, [facility] [address] [id number] [address] [place] [address], [place] [id number] Mar, [facility] [address] [id number] [address] [place] [address], [place] [id number] Feb, [facility] [address] [id number] [address] [place] [address], [place] [id number] 18 Feb, 2011 [facility] [address] [id number] [address] [place] [address], [place] [id number] Feb, [facility] [address] [id number] [address] [place] [address], [place] [id number] Feb, [facility] [address] [id number] [address] [place] [address], [place] [id number] Jan, [facility] [address] [id number] [address] [place] [address], [place] [id number] Jan, [facility] [address] [id number] [address] [place] [address], [place] [id number] Jan, [facility] [address] [id number] [address] [place] [address], [place] [id number] Jan, [facility] [address] [id number] [address] [place] [address], [place] [id number] Nov, [facility] [address] [id number] [address] [place] [address], [place] [address] Mar, [facility] [address] [id number] [address] [place] [address], [place] [id number] Mar, [facility] [address] [id number] [address] [place] [address], [place] [id number] 30 Feb, 2010 [facility] [address] [id number] [address] [place] [address], [place] [address] Feb, [facility] [address] [id number] [address] [place] [address], [place] [id number] Jan, [facility] [address] [id number] [address] [place] [address], [place] [id number] Jan, [facility] [address] [id number] [address] [place] [address], [place] [id number] Sep, [facility] [address] [id number] [address] [place] [address], [place] [id number] 16 May, 2009 [facility] [address] [id number] [address] [place] [id number] Apr, [facility] [address] [id number] [address] [place] [id number] Mar, [facility] [address] [id number] [address] [place] [id number] Feb, [facility] [address] [id number] 20 [place] [id number] Feb, [facility] [address] [id number] [address] [place] [id number] Feb, [facility] [address] [id number] [address] [place] [id number] Jan, [facility] [address] [id number] [address] [place] [id number] Jan, [facility] [address] [id number] [address] [place] [id number] Jan, [facility] [address] [id number] [address] [place] [phone] Jan, [facility] [address] [id number] [address] [place] [id number] August, IMMUNIZATIONS No Known Immunizations SOCIAL HISTORY [...] age 6 Hospitalization History surgery Hospitalization History [facility], inin tient treatment few times for BH
--- OUTSIDE RECORDS SUMMARY | 2019-11-05 07:53 | XMS REPORT ---
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 Active 88457492 Problem Hypertensive retinopathy of both eyes H35.033 Active 5157144 Problem Open-angle glaucoma of both eyes, unspecified glaucoma stage, unspecified open-angle glaucoma type H40.10X0 Acti ve 63651465 Problem Obstructive sleep apnea G47.33 Active 00391816 Problem Type 2 diabetes mellitus with complication E11.8 Active 38810373 Problem Intermittent explosive disorder in adult F63.81 Active 21383183 Problem Bipolar disorder, unspecified F31.9 Active 00595298 Problem Mild intellectual disability F70 A ctive 55855471 Problem Other specified urinary incontinence N39.498 Active 134583273 Problem Diabetes E11.9 Active 91342965 Problem Type 2 diabetes mellitus wit h diabetic neuropathy, unspecified whether detention insulin use E11.40 Active 307133 833461324 Problem Essential hypertension I10 Active 64115893 Problem Reactive airway disease, mild intermittent, uncomplicated J45.20 Active 408825892 Problem Gastroesophageal reflux disease without esophagitis K21.9 Active 388187042 Problem Other diabetic neurological complication associated with type 2 diabetes mellitus E11.49 Active 724696424 Problem Neuropathy G62.9 Active 730803732 ALLERGIES No Information ENCOUNTERS Encounter Location Date Diagnosis [facility] [address] [id number] [place] [address] Dec, OUTREACH [facility] [address] [id number] [address] Nov, [facility] [address] [place] [address] Oct, [facility] [address] [place] [address] Sep, [facility] [address] [place] [address] Sep, [facility] [address] [place] [address] Sep, [facility] [address] [place] [address] Sep, Essential hypertension I10 [place] [address] [place] [id number] [place] [address] August, Intermittent explosive disor salvatore in adult F63.81 ; Bipolar disorder, unspecified F31.9 and Mild intellectual disability F70 [place] [address] [place] [address] Jul, Type 2 diabetes mellitus wit h diabetic neuropathy, 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 and Colon cancer screening Z12.11 [place] [address] [place] [address] Jul, Type 2 diabetes mellitus wit h diabetic neuropathy, 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 and Tinea pedis, unspecified laterality B35.3 [facility] [address] [place] [address] Jun, [facility] [address] [place] [address] Jun, [facility] [address] [place] [address] 04 Jun, 2019 Dysuria R30.0 [facility] [address] [place] [id number] [address] [place] [address] Jun, [facility] [address] [place] [id number] [address] [place] [address] 20 May, 2019 Influenza J11.1 [facility] [address] [facility] [id number] [address] [place] [address] 13 May, 2019 Intermittent explosive disor salvatore in adult F63.81 [facility] [address] [place] [id number] [address] [place] [address] May, [facility] [address] [place] [id number] [place] [address] Apr, Intermittent explosive disor salvatore in adult F63.81 ; Bipolar disorder, unspecified F31.9 and Mild intellectual disability F70 [facility] [address] [place] [id number] [place] [address] Apr, Oral health maintenance stat us requiring routine preventive dental care K08.9 [place] [address] [place] [id number] [place] [address] Apr, Type 2 diabetes mellitus wit h complication E11.8 ; History of test for hearing Z92.89 ; Colon cancer screening Z12.11 ; Other specified urinary incontinence N39.498 and Impacted cerumen, right ear H61.21 [place] [address] [place] [id number] [place] [address] 10 Apr, 2019 Onychomycosis B35.1 ; Other diabetic neurological complication associated with type 2 diabetes mellitus E11.49 and Tinea pedis of both feet B35.3 [place] [address] [place] [id number] [place] [address] Feb, [place] [address] [place] [id number] [address] [place] [address] Jan, [place] [address] [place] [id number] [place] [address] Jan, [place] [address] [place] [id number] [address] [place] [address] Jan, [place] [address] [place] [id number] [address] [place] [address] Jan, [facility] [address] [facility] [id number] [address] [place] [address] Jan, [facility] [address] [facility] [id number] [address] [place] [address] Jan, [facility] [address] [facility] [id number] [address] [place] [address] Jan, [facility] [address] [facility] [id number] [address] [place] [address] Jan, Anemia D64.9 [facility] [address] [place] [id number] [place] [address] Jan, Dental examination Z01.20 an d Oral health maintenance status requiring routine preventive dental care K08.9 [facility] [address] [facility] [id number] [address] [place] [address] Jan, Onychomycosis B35.1 and Othe r diabetic neurological complication associated with type 2 diabetes mellitus E11.49 [facility] [address] [facility] [id number] [address] [place] [address] Jan, Anemia D64.9 [facility] [address] [facility] [id number] [address] [place] [address] Jan, [facility] [address] [facility] [id number] [address] [place] [address] Dec, Urinary tract infection with out hematuria, site unspecified N39.0 [facility] [address] [facility] [id number] [address] [place] [address] Dec, Type 2 diabetes mellitus wit h complication E11.8 ; Urinary tract infection without hematuria, site unspecified N39.0 ; Impacted cerumen of both ears H61.23 ; Encounter for immunization Z23 and Hyponatremia E87.1 [facility] [address] [facility] [id number] [address] [place] [address] Dec, Intermittent explosive disor salvatore in adult F63.81 ; Dysuria R30.0 ; Type 2 diabetes mellitus with complication E11.8 ; Bipolar disorder, unspecified F31.9 and Mild intellectual disability F70 [facility] [address] [facility] [id number] [address] [place] [address] Dec, Dysuria R30.0 [facility] [address] [facility] [id number] [address] [place] [address] Dec, Intermittent explosive disor salvatore in adult F63.81 ; Bipolar disorder, unspecified F31.9 and Mild intellectual disability F70 [facility] [address] [facility] [id number] [address] [place] [address] Nov, [facility] [address] [facility] [id number] [address] [place] [address] Oct, [facility] [address] [facility] [id number] [place] [address] Oct, Oral health maintenance stat us requiring routine preventive dental care K08.9 [facility] [address] [facility] [id number] [address] [place] [address] August, Intermittent explosive disor salvatore in adult F63.81 ; Bipolar disorder, unspecified F31.9 and Mild intellectual disability F70 [facility] [address] [id number] [address] [place] [id number] August, Dental caries K02.9 [facility] [address] [facility] [id number] [address] [place] [address] Jul, Onychomycosis B35.1 ; Other diabetic neurological complication associated with type 2 diabetes mellitus E11.49 and Tinea pedis of both feet B35.3 [facility] [address] [id number] [address] [place] [id number] Jul, Caries K02.9 [facility] [address] [facility] [id number] [address] [place] [address] Jul, Type 2 diabetes mellitus wit h complication E11.8 ; Tobacco abuse Z72.0 and Bipolar disorder, unspecified F31.9 [facility] [address] [place] [id number] [address] [place] [address] Jun, [facility] [address] [facility] [id number] [address] [place] [address] [id number] Jun, Dental examination Z01.20 an d Oral health maintenance status requiring routine preventive dental care K08.9 [facility] [address] [place] [address] 11 May, 2018 Bilateral impacted cerumen H 61.23 [facility] [address] [place] [id number] [address] [place] [address] Apr, Bipolar disorder, unspecifie d F31.9 ; Intermittent explosive disorder in adult F63.81 ; Type 2 diabetes mellitus with complication E11.8 ; Tobacco abuse Z72.0 and Colon cancer screening Z12.11 [facility] [address] [place] [id number] [address] [place] [address] Apr, Onychomycosis B35.1 and Othe r diabetic neurological complication associated with type 2 diabetes mellitus E11.49 [facility] [address] [place] [id number] [address] [place] [address] Apr, Intermittent explosive disor salvatore in adult F63.81 ; Bipolar disorder, unspecified F31.9 and Mild intellectual disability F70 [facility] [address] [place] [id number] [place] [address] Mar, Diabetes E11.9 [facility] [address] [place] [id number] [address] [place] [address] Jan, Encounter for immunization Z 23 [facility] [address] [place] [id number] [address] [place] [address] Jan, Tinea pedis of both feet B35 .3 ; Other diabetic neurological complication associated with type 2 diabetes mellitus E11.49 and Onychomycosis B35.1 [facility] [address] [place] [id number] [address] [place] [address] Nov, Type 2 diabetes mellitus wit h complication E11.8 [facility] [address] [facility] [id number] [address] [place] [address] Nov, [facility] [address] [facility] [id number] [address] [place] [address] Oct, Intermittent explosive disor salvatore in adult F63.81 ; Bipolar disorder, unspecified F31.9 and Mild intellectual disability F70 [facility] [address] [facility] [id number] [address] [place] [address] Oct, [facility] [address] [facility] [id number] [address] [place] [address] [id number] Oct, Dental examination Z01.20 [facility] [address] [place] [id number] [place] [address] Oct, Onychomycosis B35.1 and Othe r diabetic neurological complication associated with type 2 diabetes mellitus E11.49 [place] [address] [place] [id number] [address] [place] [address] Sep, Type 2 diabetes mellitus wit h complication E11.8 and Colon cancer screening Z12.11 [place] [address] [place] [id number] [place] [address] Sep, Type 2 diabetes mellitus wit h complication E11.8 ; Colon cancer screening Z12.11 and Neuropathy G62.9 [facility] [address] [facility] [id number] [address] [place] [address] August, Diabetes E11.9 [facility] [address] [facility] [id number] [address] [place] [address] [id number] Jul, Dental examination Z01.20 [facility] [address] [facility] [id number] [address] [place] [address] May, Mild intellectual disability F70 [facility] [address] [facility] [id number] [address] [place] [address] 07 May, 2017 Mild intellectual disability F70 ; High risk medication use Z79.899 ; Intermittent explosive disorder in adult F63.81 and Bipolar disorder, unspecified F31.9 [facility] [address] [id number] [address] [place] [address] May, [facility] [address] [id number] [address] [place] [phone] May, [facility] [address] [id number] [address] [place] [address] Apr, Type 2 diabetes mellitus wit h complication E11.8 ; Mild intellectual disability F70 ; Gastroesophageal reflux disease without esophagitis K21.9 ; Reactive airway disease, mild intermittent, uncomplicated J45.20 and Tobacco abuse Z72.0 [facility] [address] [id number] [address] [place] [phone] Apr, High risk medication use Z79 .899 ; Mild intellectual disability F70 ; Intermittent explosive disorder in adult F63.81 and Bipolar disorder, unspecified F31.9 [facility] [address] [id number] [place] [address] [id number] Mar, Encounter for dental exam an d cleaning w/o abnormal findings Z01.20 [facility] [address] [id number] [address] [place] [address] [id number] Mar, Dental examination Z01.20 [facility] [address] [id number] [address] [place] [address] 12 Jan, 2017 [facility] [address] [id number] [address] [place] [address] Jan, [facility] [address] [id number] [address] [place] [address] 10 Jan, 2017 Mild intellectual disability F70 ; Bipolar disorder, unspecified F31.9 and Intermittent explosive disorder in adult F63.81 [facility] [address] [id number] [address] [place] [address] 02 Jan, 2017 Diabetes E11.9 [facility] [address] [id number] [address] [place] [address] [id number] Dec, Encounter for dental examina tion and cleaning without abnormal findings Z01.20 [facility] [address] [id number] [address] [place] [address] 12 Dec, 2016 Bipolar disorder, unspecifie d F31.9 ; Intermittent explosive disorder in adult F63.81 and Mild intellectual disability F70 [facility] [address] [id number] [address] [place] [address] Nov, Diabetes E11.9 [facility] [address] [id number] [address] [place] [address] Nov, [facility] [address] [id number] [address] [place] [phone] Nov, Diabetes E11.9 and Colon can cer screening Z12.11 [facility] [address] [id number] [id number] Sep, Dental examination Z01.20 [facility] [address] [id number] [address] [place] [address] [id number] Sep, Encounter for dental examina tion and cleaning without abnormal findings Z01.20 [facility] [address] [id number] [address] [place] [address] Sep, Bipolar disorder, unspecifie d F31.9 [facility] [address] [id number] [address] [place] [address] Sep, Bipolar disorder, unspecifie d F31.9 [facility] [address] [id number] [address] [place] [address] Jul, [facility] [address] [id number] [address] [place] [address] 13 Jul, 2016 Type 2 diabetes mellitus wit h complication E11.8 [facility] [address] [id number] [address] [place] [address] [id number] 15 Jun, 2016 Encounter for dental examina tion and cleaning without abnormal findings Z01.20 [facility] [address] [id number] [id number] Jun, Dental examination Z01.20 [facility] [address] [id number] [address] [place] [address] 18 Apr, 2016 Sports physical Z02.5 [facility] [address] [id number] [address] [place] [phone] 14 Mar, 2016 Bipolar disorder, in partial remission, most recent episode manic F31.73 and Intermittent explosive disorder in adult F63.81 [facility] [address] [id number] [address] [place] [address] 08 Mar, 2016 [facility] [address] [id number] [address] [place] [phone] 06 Mar, 2016 Diabetes E11.9 [facility] [address] [id number] [address] [place] [address] [id number] Feb, Encounter for dental examina tion and cleaning without abnormal findings Z01.20 [facility] [address] [id number] [address] [place] [address] 22 Dec, 2015 Nocturnal hypoxemia G47.34 a nd Encounter for immunization Z23 [facility] [address] [id number] [address] [place] [id number] 15 Dec, 2015 [facility] [address] [id number] [address] [place] [address] Dec, [facility] [address] [id number] [address] [place] [address] Dec, Bipolar disorder, unspecifie d F31.9 [facility] [address] [id number] [address] [place] [address] [id number] Oct, Encounter for dental examina tion and cleaning without abnormal findings Z01.20 [facility] [address] [id number] [id number] Oct, Dental examination Z01.20 [facility] [address] [id number] [address] [place] [address] Oct, Diabetes E11.9 [facility] [address] [facility] [id number] [address] [place] [address] Oct, Diabetes E11.9 ; Reactive ai rway disease, mild intermittent, uncomplicated J45.20 and Tobacco abuse Z72.0 [facility] [address] [facility] [id number] [address] [place] [phone] Sep, Bipolar disorder, unspecifie d F31.9 and Depression F32.9 [place] [address] [facility] [id number] [address] [place] [address] Sep, [place] [address] [facility] [id number] [address] [place] [address] August, Tinea pedis of both feet B35 .3 and DM w/o complication type II, uncontrolled E11.65 [place] [id number] [facility] [id number] [address] [place] [phone] Jul, [place] [address] [facility] [id number] [address] [place] [address] Jul, [place] [address] [facility] [id number] [address] [place] [address] Jul, Obstructive sleep apnea G47. 33 [place] [id number] [facility] [id number] [address] [place] [address] Jun, Diabetes E11.9 [facility] [address] [facility] [id number] [address] [place] [phone] Jun, [facility] [address] [facility] [id number] [address] [place] [address] Jun, [facility] [address] [facility] [id number] [address] [place] [address] Jun, Bipolar disorder, unspecifie d F31.9 and Mental retardation F79 [facility] [address] [facility] [id number] [address] [place] [address] Apr, [facility] [address] [facility] [id number] [address] [place] [address] Feb, Diabetes E11.9 ; Encounter f or immunization Z23 ; Cough R05 and Nicotine abuse Z72.0 [place] [address] [address] Jan, Bipolar disorder, unspecifie d F31.9 and Diabetes mellitus without mention of complication, type II or unspecified type, uncontrolled 250.02 [place] [address] [address] Jan, [place] [address] [address] Dec, Reactive airway disease 493. 90 and Enuresis 788.30 [place] [address] [address] Dec, [place] [address] [address] Nov, [place] [address] [address] Nov, [address] [address] Nov, Annual physical exam V70.0 ; Urinary incontinence 788.30 ; Diabetes 250.00 and Hypertension 401.[address] [address] Oct, Diabetes mellitus without me ntion of complication, type II or unspecified type, uncontrolled 250.02 [place] [address] [address] Oct, Diabetes mellitus without me ntion of complication, type II or unspecified type, uncontrolled 250.02 [place] [address] [address] Oct, Diabetes mellitus without me ntion of complication, type II or unspecified type, uncontrolled 250.02 [place] [address] [address] Oct, [facility] [address] [id number] [address] [place] [address] Oct, [facility] [address] [id number] [address] [place] [address] Oct, Bipolar disorder, unspecifie d 296.80 [facility] [address] [id number] [address] [place] [address] [id number] Sep, Dental examination V72.2 [facility] [address] [id number] [address] [place] [address] August, [facility] [address] [id number] [address] [place] [id number] August, Dental examination V72.2 [facility] [address] [id number] [address] [place] [address] August, [facility] [address] [id number] [address] [place] [phone] Jul, [facility] [address] [id number] [address] [place] [id number] Jul, [facility] [address] [id number] [address] [place] [phone] Jun, [facility] [address] [id number] [address] [place] [id number] Jun, [facility] [address] [id number] [address] [place] [id number] Jun, [facility] [address] [id number] [address] [place] [address] [address] Jun, [facility] [address] [id number] [address] [place] [address] May, [facility] [address] [id number] [address] [place] [address] May, [facility] [address] [id number] [address] [place] [address] May, 2014 [facility] [address] [id number] [address] [place] [address], [place] [address] 16 May, 2014 [facility] [address] [id number] [address] [place] [address], [place] [address] 16 May, 2014 [facility] [address] [id number] [address] [place] [address], [place] [address] 16 May, 2014 [facility] [address] [id number] [address] [place] [address], [place] [address] 16 May, 2014 [facility] [address] [id number] [address] [place] [address], [place] [address] May, 2014 [facility] [address] [id number] [address] [place] [address], [place] [address] 16 May, 2014 [facility] [address] [id number] [address] [place] [address], [place] [address] 16 May, 2014 [facility] [address] [id number] [address] [place] [address], [place] [address] May, 2014 [facility] [address] [id number] [address] [place] [address], [place] [address] May, 2014 [facility] [address] [id number] [address] [place] [address], [place] [address] 16 May, 2014 [facility] [address] [id number] [address] [place] [address], [place] [address] May, 2014 [facility] [address] [id number] [address] [place] [address], [place] [address] May, [facility] [address] [id number] [address] [place] [address], [place] [address] Apr, [facility] [address] [id number] [address] [place] [address], [place] [address] Apr, [facility] [address] [id number] [address] [place] [address] Apr, [facility] [address] [id number] [address] [place] [address], [place] [address] Apr, [facility] [address] [id number] [address] [place] [address], [place] [address] Apr, [facility] [address] [id number] [address] [place] [address], [place] [address] Apr, [facility] [address] [id number] [address] [place] [address], [place] [address] Apr, [facility] [address] [id number] [address] [place] [address], [place] [address] Apr, [facility] [address] [id number] [address] [place] [address], [place] [address] Apr, [facility] [address] [id number] [address] [place] [address], [place] [address] Apr, [facility] [address] [id number] [address] [place] [address], [place] [address] Apr, [facility] [address] [id number] [address] [place] [address], [place] [address] Apr, [facility] [address] [id number] [address] [place] [address], [place] [address] Mar, [facility] [address] [id number] [address] [place] [address], [place] [address] Mar, [facility] [address] [id number] [address] [place] [address], [place] [address] Mar, [facility] [address] [id number] [address] [place] [address], [place] [address] Mar, [facility] [address] [id number] [address] [place] [address], [place] [address] Mar, [facility] [address] [id number] [address] [place] [address], [place] [address] Mar, [facility] [address] [id number] [address] [place] [address], [place] [address] 13 Feb, 2014 [facility] [address] [id number] [address] [place] [address], [place] [address] 13 Feb, 2014 [facility] [address] [id number] [address] [place] [address], [place] [address] 13 Feb, 2014 [facility] [address] [id number] [address] [place] [address], [place] [address] Feb, [facility] [address] [id number] [address] [place] [address], [place] [address] 14 Jan, 2014 [facility] [address] [id number] [address] [place] [address], [place] [address] 14 Jan, 2014 [facility] [address] [id number] [address] [place] [address], [place] [address] 14 Jan, 2014 [facility] [address] [id number] [address] [place] [address], [place] [address] 14 Jan, 2014 [facility] [address] [id number] [address] [place] [address], [place] [address] 22 Dec, 2013 [facility] [address] [id number] [address] [place] [address], [place] [address] 22 Dec, 2013 [facility] [address] [id number] [address] [place] [address], [place] [address] 15 Dec, 2013 [facility] [address] [id number] [address] [place] [address], [place] [address] 15 Dec, 2013 [facility] [address] [id number] [address] [place] [address], [place] [address] Nov, [facility] [address] [id number] [address] [place] [address], [place] [address] Nov, [facility] [address] [id number] [address] [place] [address], [place] [address] Nov, [facility] [address] [id number] [address] [place] [address], [place] [address] Nov, [facility] [address] [id number] [facility] [place] [address] Nov, [facility] [address] [id number] [facility] [place] [address] Nov, [facility] [address] [id number] [facility] [place] [address] Nov, [facility] [address] [id number] [address] [place] [address], [place] [address] Oct, [facility] [address] [id number] [address] [place] [address], [place] [address] Oct, [facility] [address] [id number] [address] [place] [address], [place] [address] Oct, [facility] [address] [id number] [address] [place] [address], [place] [address] Oct, [facility] [address] [id number] [address] [place] [address], [place] [address] Oct, [facility] [address] [id number] [address] [place] [address], [place] [address] Oct, [facility] [address] [id number] [address] [place] [address], [place] [address] Oct, [facility] [address] [id number] [address] [place] [address], [place] [address] Sep, [facility] [address] [id number] [address] [place] [address], [place] [address] Sep, [facility] [address] [id number] [address] [place] [address], [place] [address] Sep, [facility] [address] [id number] [address] [place] [address], [place] [address] Sep, [facility] [address] [id number] [address] [place] [address], [place] [address] Sep, [facility] [address] [id number] [address] [place] [address], [place] [address] Jul, [facility] [address] [id number] [facility] [place] [address] Jul, [facility] [address] [id number] [address] [place] [address], [place] [address] Jul, [facility] [address] [id number] [address] [place] [address], [place] [address] Jul, [facility] [address] [id number] [address] [place] [address], [place] [address] Jul, [facility] [address] [id number] [address] [place] [address], [place] [address] Jul, [facility] [address] [id number] [address] [place] [address], [place] [address] Jul, [facility] [address] [id number] [address] [place] [address], [place] [address] Jul, [facility] [address] [id number] [address] [place] [address], [place] [address] Jul, [facility] [address] [id number] [address] [place] [address], [place] [address] Jul, [facility] [address] [id number] [address] [place] [address], [place] [address] Jul, [facility] [address] [id number] [address] [place] [address], [place] [address] Jul, [facility] [address] [id number] [address] [place] [address], [place] [address] Jun, [facility] [address] [id number] [address] [place] [address], [place] [address] Jun, [facility] [address] [id number] [address] [place] [address], [place] [address] Jun, [facility] [address] [id number] [address] [place] [address], [place] [address] Jun, [facility] [address] [id number] [address] [place] [address], [place] [address] Jun, [facility] [address] [id number] [address] [place] [address], [place] [address] Jun, [facility] [address] [id number] [address] [place] [address], [place] [address] Jun, [facility] [address] [id number] [address] [place] [address], [place] [address] Jun, [facility] [address] [id number] [address] [place] [address], [place] [address] May, [facility] [address] [id number] [address] [place] [address], [place] [address] May, [facility] [address] [id number] [address] [place] [address], [place] [address] May, [facility] [address] [id number] [address] [place] [address], [place] [address] May, [facility] [address] [id number] [address] [place] [address], [place] [address] May, [facility] [address] [id number] [address] [place] [address], [place] [address] May, [facility] [address] [id number] [address] [place] [address], [place] [address] May, [facility] [address] [id number] [address] [place] [address], [place] [address] May, [facility] [address] [id number] [address] [place] [address], [place] [address] Apr, [facility] [address] [id number] [address] [place] [address], [place] [address] Apr, [facility] [address] [id number] [address] [place] [address], [place] [address] Apr, [facility] [address] [id number] [address] [place] [address], [place] [address] Apr, [facility] [address] [id number] [address] [place] [address], [place] [address] Mar, [facility] [address] [id number] [address] [place] [address], [place] [address] Mar, [facility] [address] [id number] [address] [place] [address], [place] [address] Mar, [facility] [address] [id number] [address] [place] [address], [place] [address] Feb, [facility] [address] [id number] [address] [place] [address], [place] [address] Feb, [facility] [address] [id number] [address] [place] [address], [place] [address] Feb, [facility] [address] [id number] [address] [place] [address], [place] [address] Feb, [facility] [address] [id number] [address] [place] [address], [place] [address] Feb, [facility] [address] [id number] [address] [place] [address], [place] [address] Feb, [facility] [address] [id number] [address] [place] [address], [place] [address] Jan, [facility] [address] [id number] [address] [place] [address], [place] [address] Jan, [facility] [address] [id number] [address] [place] [address], [place] [address] Jan, [facility] [address] [id number] [address] [place] [address], [place] [address] Jan, [facility] [address] [id number] [address] [place] [address], [place] [address] Jan, [facility] [address] [id number] [address] [place] [address], [place] [address] Jan, [facility] [address] [id number] [address] [place] [address], [place] [address] 2013 [facility] [address] [id number] [address] [place] [address], [place] [address] 25 Dec, 2012 [facility] [address] [id number] [address] [place] [address], [place] [address] 16 Dec, 2012 [facility] [address] [id number] [address] [place] [address], [place] [address] 10 Dec, 2012 [facility] [address] [id number] [address] [place] [address], [place] [address] 05 Dec, 2012 [facility] [address] [id number] [address] [place] [address], [place] [address] Nov, [facility] [address] [id number] [address] [place] [address], [place] [address] Nov, [facility] [address] [id number] [address] [place] [address], [place] [address] Nov, [facility] [address] [id number] [address] [place] [address], [place] [address] Nov, [facility] [address] [id number] [address] [place] [address], [place] [address] Nov, [facility] [address] [id number] [address] [place] [address], [place] [address] Nov, [facility] [address] [id number] [address] [place] [address], [place] [address] Nov, [facility] [address] [id number] [address] [place] [address], [place] [address] Oct, [facility] [address] [id number] [address] [place] [address], [place] [address] Oct, [facility] [address] [id number] [address] [place] [address], [place] [address] Oct, [facility] [address] [id number] [address] [place] [address], [place] [address] Oct, [facility] [address] [id number] [address] [place] [address], [place] [address] Oct, [facility] [address] [id number] [address] [place] [address], [place] [address] Oct, [facility] [address] [id number] [address] [place] [address], [place] [address] Oct, [facility] [address] [id number] [address] [place] [address], [place] [address] Oct, [facility] [address] [id number] [address] [place] [address], [place] [address] Sep, Suleiman PEREZ [address] [id number] COFFJOSE ANTON[place] [id number] August, [facility] [address] [id number] [address] [place] [address], [place] [address] August, [facility] [address] [id number] [address] [place] [address], [place] [address] Jul, [facility] [address] [id number] [address] [place] [address], [place] [address] Jul, [facility] [address] [id number] [address] [place] [address], [place] [address] Jul, [facility] [address] [id number] [address] [place] [address], [place] [address] Jul, [facility] [address] [id number] [address] [place] [address], [place] [address] 18 Jul, 2012 [facility] [address] [id number] [address] [place] [address], [place] [address] 17 Jul, 2012 [facility] [address] [id number] [address] [place] [address], [place] [address] 16 Jul, 2012 [facility] [address] [id number] [address] [place] [address], [place] [address] Jun, [facility] [address] [id number] [address] [place] [address], [place] [address] 18 Jun, 2012 [facility] [address] [id number] [address] [place] [address], [place] [address] 11 Jun, 2012 [facility] [address] [id number] [address] [place] [address], [place] [address] 04 Jun, 2012 [facility] [address] [id number] [address] [place] [address], [place] [address] 04 Jun, 2012 [facility] [address] [id number] [address] [place] [address], [place] [address] 19 May, 2012 [facility] [address] [id number] [address] [place] [address], [place] [address] 18 May, 2012 [facility] [address] [id number] [address] [place] [address], [place] [address] 04 May, 2012 [facility] [address] [id number] [address] [place] [address], [place] [address] 15 Apr, 2012 [facility] [address] [id number] [address] [place] [address], [place] [address] 14 Apr, 2012 [facility] [address] [id number] [address] [place] [address], [place] [address] 07 Apr, 2012 [facility] [address] [id number] [address] [place] [address], [place] [address] 31 Mar, 2012 [facility] [address] [id number] [address] [place] [address], [place] [address] 31 Mar, 2012 [facility] [address] [id number] [address] [place] [address], [place] [address] 13 Mar, 2012 [facility] [address] [id number] [address] [place] [address], [place] [address] 13 Mar, 2012 [facility] [address] [id number] [address] [place] [address], [place] [address] 10 Mar, 2012 [facility] [address] [id number] [address] [place] [address], [place] [address] Mar, [facility] [address] [id number] [address] [place] [address], [place] [address] Feb, [facility] [address] [id number] [address] [place] [address], [place] [address] Feb, [facility] [address] [id number] [address] [place] [address], [place] [address] Jan, [facility] [address] [id number] [address] [place] [address], [place] [address] Jan, [facility] [address] [id number] [address] [place] [address], [place] [address] Dec, [facility] [address] [id number] [address] [place] [address], [place] [address] Nov, [facility] [address] [id number] [address] [place] [address], [place] [address] Nov, [facility] [address] [id number] [address] [place] [address], [place] [address] Nov, [facility] [address] [id number] [address] [place] [address], [place] [address] Nov, [facility] [address] [id number] [address] [place] [address], [place] [address] Oct, [facility] [address] [id number] [address] [place] [address], [place] [address] Oct, [facility] [address] [id number] [address] [place] [address], [place] [address] Oct, [facility] [address] [id number] [address] [place] [address], [place] [address] Sep, [facility] [address] [id number] [address] [place] [address], [place] [address] Sep, [facility] [address] [id number] [address] [place] [address], [place] [address] Sep, [facility] [address] [id number] [address] [place] [address], [place] [address] August, [facility] [address] [id number] [address] [place] [address], [place] [address] August, [facility] [address] [id number] [address] [place] [address], [place] [address] Jul, [facility] [address] [id number] [address] [place] [address], [place] [address] Jul, [facility] [address] [id number] [address] [place] [address], [place] [address] Jul, [facility] [address] [id number] [address] [place] [address], [place] [address] Jul, [facility] [address] [id number] [address] [place] [address], [place] [address] Jun, [facility] [address] [id number] [address] [place] [address], [place] [address] May, [facility] [address] [id number] [address] [place] [address], [place] [address] Apr, [facility] [address] [id number] [address] [place] [address], [place] [address] Apr, [facility] [address] [id number] [address] [place] [address], [place] [address] Apr, [facility] [address] [id number] [address] [place] [address], [place] [address] Apr, [facility] [address] [id number] [address] [place] [address], [place] [address] Apr, [facility] [address] [id number] [address] [place] [address], [place] [address] Apr, [facility] [address] [id number] [address] [place] [address], [place] [address] Mar, [facility] [address] [id number] [address] [place] [address], [place] [address] Mar, [facility] [address] [id number] [address] [place] [address], [place] [address] 29 Feb, 2011 [facility] [address] [id number] [address] [place] [address], [place] [address] Feb, [facility] [address] [id number] [address] [place] [address], [place] [address] Feb, [facility] [address] [id number] [address] [place] [address], [place] [address] Feb, [facility] [address] [id number] [address] [place] [address], [place] [address] Jan, [facility] [address] [id number] [address] [place] [address], [place] [address] Jan, [facility] [address] [id number] [address] [place] [address], [place] [address] Jan, [facility] [address] [id number] [address] [place] [address], [place] [address] Jan, [facility] [address] [id number] [address] [place] [address], [place] [address] Nov, [facility] [address] [id number] [address] [place] [address], [place] [address] Mar, [facility] [address] [id number] [address] [place] [address], [place] [address] Mar, [facility] [address] [id number] [address] [place] [address], [place] [address] 30 Feb, 2010 [facility] [address] [id number] [address] [place] [address], [place] [address] 15 Feb, 2010 [facility] [address] [id number] [address] [place] [address], [place] [address] Jan, [facility] [address] [id number] [address] [place] [address], [place] [address] Jan, [facility] [address] [id number] [address] [place] [address], [place] [address] Sep, [facility] [address] [id number] [address] [place] [id number] 16 May, 2009 [facility] [address] [id number] [address] [place] [id number] Apr, [facility] [address] [id number] [address] [place] [id number] Mar, [facility] [address] [id number] [address] [place] [id number] Feb, [facility] [address] [id number] [address] [place] [phone] Feb, [facility] [address] [id number] [address] [place] [id number] Feb, [facility] [address] [id number] [address] [place] [id number] Jan, [facility] [address] [id number] [address] [place] [phone] Jan, [facility] [address] [id number] [address] [place] [id number] Jan, [facility] [address] [id number] [address] [place] [phone] Jan, [facility] [address] [id number] [address] [place] [id number] August, IMMUNIZATIONS No Known Immunizations SOCIAL HISTORY [...] age 6 Hospitalization History surgery Hospitalization History [facility], innh tie treatment few times for BH
--- OUTSIDE RECORDS SUMMARY | 2019-11-05 07:53 | XMS REPORT ---
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 Active 54050767 Problem Hypertensive retinopathy of both eyes H35.033 Active 9911199 Problem Open-angle glaucoma of both eyes, unspecified glaucoma stage, unspecified open-angle glaucoma type H40.10X0 Acti ve 85563280 Problem Obstructive sleep apnea G47.33 Active 97952822 Problem Type 2 diabetes mellitus with complication E11.8 Active 75265797 Problem Intermittent explosive disorder in adult F63.81 Active 68161229 Problem Bipolar disorder, unspecified F31.9 Active 91697988 Problem Mild intellectual disability F70 A ctive 71204226 Problem Other specified urinary incontinence N39.498 Active 006237037 Problem Diabetes E11.9 Active 05853898 Problem Type 2 diabetes mellitus wit h diabetic neuropathy, unspecified whether care home insulin use E11.40 Active 585819 184100405 Problem Essential hypertension I10 Active 60207719 Problem Reactive airway disease, mild intermittent, uncomplicated J45.20 Active 278027030 Problem Gastroesophageal reflux disease without esophagitis K21.9 Active 160442534 Problem Other diabetic neurological complication associated with type 2 diabetes mellitus E11.49 Active 242870276 Problem Neuropathy G62.9 Active 405410874 ALLERGIES No Information ENCOUNTERS Encounter Location Date Diagnosis [facility] [address] [facility] [id number] [address] [place] [phone] Dec, [facility] [address] [facility] [id number] [address] [place] [phone] Oct, [facility] [address] [facility] [id number] [address] [place] [phone] Sep, [facility] [address] [place] [id number] [address] [place] [phone] Sep, [facility] [address] [place] [id number] [address] [place] [phone] Sep, [facility] [address] [place] [phone] Sep, Essential hypertension I10 [place] [address] [place] [id number] [place] [phone] August, Intermittent explosive disor salvatore in adult F63.81 ; Bipolar disorder, unspecified F31.9 and Mild intellectual disability F70 [place] [address] [place] [phone] Jul, Type 2 diabetes mellitus wit h diabetic neuropathy, unspecified whether intermediate teacher insulin use E11.40 and Colon cancer screening Z12.11 [place] [address] [place] [id number] [address] [place] [phone] Jul, Type 2 diabetes mellitus wit h diabetic neuropathy, unspecified whether care home insulin use E11.40 and Tinea pedis, unspecified laterality B35.3 [facility] [address] [place] [phone] Jun, [facility] [address] [place] [id number] [address] [place] [id number] Jun, [facility] [address] [place] [id number] [address] [place] [phone] Jun, Dysuria R30.0 [facility] [address] [place] [id number] [address] [place] [phone] Jun, [facility] [address] [place] [id number] [address] [place] [id number] May, Influenza J11.1 [place] [address] [id number] [address] [place] [phone] 13 May, 2019 Intermittent explosive disor salvatore in adult F63.81 [facility] [address] [facility] [id number] [address] [place] [phone] 12 May, 2019 [facility] [address] [facility] [id number] [address] [place] [phone] Apr, Intermittent explosive disor salvatore in adult F63.81 ; Bipolar disorder, unspecified F31.9 and Mild intellectual disability F70 [facility] [id number] [place] [phone] Apr, Oral health maintenance stat requiring routine preventive dental care K08.9 [facility] [address] [facility] [id number] [address] [place] [phone] Apr, Type 2 diabetes mellitus wit h complication E11.8 ; History of test for hearing Z92.89 ; Colon cancer screening Z12.11 ; Other specified urinary incontinence N39.498 and Impacted cerumen, right ear H61.21 [facility] [address] [facility] [id number] [address] [place] [phone] 10 Apr, 2019 Onychomycosis B35.1 ; Other diabetic neurological complication associated with type 2 diabetes mellitus E11.49 and Tinea pedis of both feet B35.3 [facility] [address] [facility] [id number] [address] [place] [phone] Feb, [facility] [address] [facility] [id number] [address] [place] [phone] Jan, [facility] [address] [facility] [id number] [address] [place] [phone] Jan, [facility] [address] [facility] [id number] [address] [place] [phone] Jan, [facility] [address] [facility] [id number] [address] [place] [phone] Jan, [facility] [address] [facility] [id number] [address] [place] [phone] Jan, [facility] [address] [facility] [id number] [address] [place] [phone] Jan, [facility] [address] [facility] [id number] [address] [place] [phone] Jan, [facility] [address] [facility] [id number] [address] [place] [phone] Jan, Anemia D64.9 [facility] [address] [facility] [id number] [place] [phone] Jan, Dental examination Z01.20 an d Oral health maintenance status requiring routine preventive dental care K08.9 [facility] [address] [facility] [id number] [address] [place] [phone] Jan, Onychomycosis B35.1 and Othe r diabetic neurological complication associated with type 2 diabetes mellitus E11.49 [place] [address] [facility] [id number] [address] [place] [phone] Jan, Anemia D64.9 [place] [address] [facility] [id number] [address] [place] [phone] Jan, [facility] [address] [facility] [id number] [address] [place] [phone] Dec, Urinary tract infection with out hematuria, site unspecified N39.0 [place] [address] [place] [id number] [address] [place] [phone] Dec, Type 2 diabetes mellitus wit h complication E11.8 ; Urinary tract infection without hematuria, site unspecified N39.0 ; Impacted cerumen of both ears H61.23 ; Encounter for immunization Z23 and Hyponatremia E87.1 [facility] [address] [facility] [id number] [address] [place] [phone] Dec, Intermittent explosive disor salvatore in adult F63.81 ; Dysuria R30.0 ; Type 2 diabetes mellitus with complication E11.8 ; Bipolar disorder, unspecified F31.9 and Mild intellectual disability F70 [facility] [address] [facility] [id number] [address] [place] [phone] Dec, Dysuria R30.0 [facility] [address] [facility] [id number] [address] [place] [phone] Dec, Intermittent explosive disor salvatore in adult F63.81 ; Bipolar disorder, unspecified F31.9 and Mild intellectual disability F70 [facility] [address] [facility] [id number] [address] [place] [phone] Nov, [facility] [address] [facility] [id number] [address] [place] [phone] Oct, [facility] [address] [place] [id number] [place] [phone] Oct, Oral health maintenance stat us requiring routine preventive dental care K08.9 [facility] [address] [facility] [id number] [address] [place] [phone] August, Intermittent explosive disor salvatore in adult F63.81 ; Bipolar disorder, unspecified F31.9 and Mild intellectual disability F70 [facility] [address] [facility] [id number] [address] [place] [phone] August, Dental caries K02.9 [facility] [address] [facility] [id number] [address] [place] [phone] Jul, Onychomycosis B35.1 ; Other diabetic neurological complication associated with type 2 diabetes mellitus E11.49 and Tinea pedis of both feet B35.3 [facility] [address] [id number] [address] [place] [address] [id number] Jul, Caries K02.9 [facility] [address] [facility] [id number] [address] [place] [phone] Jul, Type 2 diabetes mellitus wit h complication E11.8 ; Tobacco abuse Z72.0 and Bipolar disorder, unspecified F31.9 [facility] [address] [facility] [id number] [address] [place] [phone] Jun, [facility] [address] [facility] [id number] [address] [place] [address] [phone] Jun, Dental examination Z01.20 an d Oral health maintenance status requiring routine preventive dental care K08.9 [facility] [address] [place] [id number] [address] [place] [phone] 11 May, 2018 Bilateral impacted cerumen H 61.23 [place] [address] [place] [id number] [address] [place] [phone] Apr, Bipolar disorder, unspecifie d F31.9 ; Intermittent explosive disorder in adult F63.81 ; Type 2 diabetes mellitus with complication E11.8 ; Tobacco abuse Z72.0 and Colon cancer screening Z12.11 [place] [address] [place] [phone] Apr, Onychomycosis B35.1 and Othe r diabetic neurological complication associated with type 2 diabetes mellitus E11.49 [place] [address] [place] [phone] Apr, Intermittent explosive disor salvatore in adult F63.81 ; Bipolar disorder, unspecified F31.9 and Mild intellectual disability F70 [place] [address] [place] [id number] [address] [place] [phone] Mar, Diabetes E11.9 [facility] [address] [place] [phone] Jan, Encounter for immunization Z 23 [place] [address] [place] [id number] [address] [place] [phone] Jan, Tinea pedis of both feet B35 .3 ; Other diabetic neurological complication associated with type 2 diabetes mellitus E11.49 and Onychomycosis B35.1 [place] [address] [place] [id number] [address] [place] [phone] Nov, Type 2 diabetes mellitus wit h complication E11.8 [place] [address] [place] [id number] [address] [place] [phone] Nov, [facility] [address] [facility] [id number] [address] [place] [phone] Oct, Intermittent explosive disor salvatore in adult F63.81 ; Bipolar disorder, unspecified F31.9 and Mild intellectual disability F70 [facility] [address] [facility] [id number] [address] [place] [phone] Oct, [facility] [address] [id number] [address] [place] [address] [id number] Oct, Dental examination Z01.20 [facility] [address] [facility] [id number] [address] [place] [phone] Oct, Onychomycosis B35.1 and Othe r diabetic neurological complication associated with type 2 diabetes mellitus E11.49 [place] [address] [facility] [id number] [address] [place] [phone] Sep, Type 2 diabetes mellitus wit h complication E11.8 and Colon cancer screening Z12.11 [facility] [address] [facility] [id number] [address] [place] [phone] 18 Sep, 2017 Type 2 diabetes mellitus wit h complication E11.8 ; Colon cancer screening Z12.11 and Neuropathy G62.9 [facility] [address] [facility] [id number] [address] [place] [phone] August, Diabetes E11.9 [facility] [address] [id number] [address] [place] [address] [id number] Jul, Dental examination Z01.20 [facility] [address] [id number] [address] [place] [phone] 27 May, 2017 Mild intellectual disability F70 [facility] [address] [facility] [id number] [address] [place] [phone] 07 May, 2017 Mild intellectual disability F70 ; High risk medication use Z79.899 ; Intermittent explosive disorder in adult F63.81 and Bipolar disorder, unspecified F31.9 [facility] [address] [facility] [id number] [address] [place] [phone] May, [facility] [address] [id number] [address] [place] [id number] May, [facility] [address] [id number] [address] [place] [phone] Apr, Type 2 diabetes mellitus wit h complication E11.8 ; Mild intellectual disability F70 ; Gastroesophageal reflux disease without esophagitis K21.9 ; Reactive airway disease, mild intermittent, uncomplicated J45.20 and Tobacco abuse Z72.0 [facility] [address] [id number] [address] [place] [phone] Apr, High risk medication use Z79 .899 ; Mild intellectual disability F70 ; Intermittent explosive disorder in adult F63.81 and Bipolar disorder, unspecified F31.9 [facility] [address] [id number] [address] [place] [address] [id number] Mar, Encounter for dental exam an d cleaning w/o abnormal findings Z01.20 [facility] [address] [id number] [address] [place] [address] [id number] Mar, Dental examination Z01.20 [facility] [address] [id number] [address] [place] [phone] 12 Jan, 2017 [facility] [address] [id number] [address] [place] [phone] Jan, [facility] [address] [id number] [address] [place] [phone] Jan, Mild intellectual disability F70 ; Bipolar disorder, unspecified F31.9 and Intermittent explosive disorder in adult F63.81 [facility] [address] [id number] [address] [place] [phone] 02 Jan, 2017 Diabetes E11.9 [facility] [address] [id number] [address] [place] [address] [id number] 13 Dec, 2016 Encounter for dental examina tion and cleaning without abnormal findings Z01.20 [facility] [address] [id number] [address] [place] [phone] Dec, Bipolar disorder, unspecifie d F31.9 ; Intermittent explosive disorder in adult F63.81 and Mild intellectual disability F70 [facility] [address] [id number] [address] [place] [phone] Nov, Diabetes E11.9 [facility] [address] [id number] [address] [place] [phone] Nov, [place] [address] [id number] [address] [place] [phone] Nov, Diabetes E11.9 and Colon can cer screening Z12.11 [facility] [address] [id number] [id number] Sep, Dental examination Z01.20 [facility] [address] [id number] [address] [place] [address] [id number] Sep, Encounter for dental examina tion and cleaning without abnormal findings Z01.20 [place] [address] [id number] [address] [place] [phone] Sep, Bipolar disorder, unspecifie d F31.9 [place] [address] [id number] [address] [place] [phone] Sep, Bipolar disorder, unspecifie d F31.9 [facility] [address] [id number] [address] [place] [phone] Jul, [facility] [address] [id number] [address] [place] [phone] Jul, Type 2 diabetes mellitus wit h complication E11.8 [facility] [address] [id number] [address] [place] [address] [id number] 15 Jun, 2016 Encounter for dental examina tion and cleaning without abnormal findings Z01.20 [facility] [address] [id number] [id number] 15 Jun, 2016 Dental examination Z01.20 [facility] [address] [id number] [address] [place] [phone] 18 Apr, 2016 Sports physical Z02.5 [facility] [address] [id number] [address] [place] [phone] 14 Mar, 2016 Bipolar disorder, in partial remission, most recent episode manic F31.73 and Intermittent explosive disorder in adult F63.81 [facility] [address] [id number] [address] [place] [id number] 08 Mar, 2016 [facility] [address] [id number] [address] [place] [phone] 06 Mar, 2016 Diabetes E11.9 [facility] [id number] [place] [address] [id number] Feb, Encounter for dental examina tion and cleaning without abnormal findings Z01.20 [facility] [address] [id number] [address] [place] [phone] 22 Dec, 2015 Nocturnal hypoxemia G47.34 a nd Encounter for immunization Z23 [facility] [address] [id number] [address] [place] [phone] 15 Dec, 2015 [facility] [address] [id number] [address] [place] [phone] Dec, [facility] [address] [id number] [address] [place] [phone] Dec, Bipolar disorder, unspecifie d F31.9 [facility] [address] [id number] [address] [place] [address] [id number] Oct, Encounter for dental examina tion and cleaning without abnormal findings Z01.20 [facility] [address] [id number] [id number] Oct, Dental examination Z01.20 [facility] [address] [id number] [address] [place] [phone] Oct, Diabetes E11.9 [facility] [address] [id number] [address] [place] [phone] Oct, Diabetes E11.9 ; Reactive ai rway disease, mild intermittent, uncomplicated J45.20 and Tobacco abuse Z72.0 [place] [address] [phone] Sep, Bipolar disorder, unspecifie d F31.9 and Depression F32.9 [place] [address] [address] Sep, [place] [address] [address] August, Tinea pedis of both feet B35 .3 and DM w/o complication type II, uncontrolled E11.65 [place] [address] [address] Jul, [place] [address] [address] Jul, [place] [address] [address] Jul, Obstructive sleep apnea G47. 33 [place] [address] [address] Jun, Diabetes E11.9 [place] [address] [address] Jun, [place] [address] [address] Jun, [place] [address] [address] Jun, Bipolar disorder, unspecifie d F31.9 and Mental retardation F79 [place] [address] [address] Apr, [place] [address] [address] Feb, Diabetes E11.9 ; Encounter f or immunization Z23 ; Cough R05 and Nicotine abuse Z72.0 [place] [address] [place] [id number] [address] [place] [phone] Jan, Bipolar disorder, unspecifie d F31.9 and Diabetes mellitus without mention of complication, type II or unspecified type, uncontrolled 250.02 [place] [address] [place] [id number] [address] [place] [phone] Jan, [place] [address] [place] [id number] [place] [phone] Dec, Reactive airway disease 493. 90 and Enuresis 788.30 [place] [address] [place] [id number] [place] [phone] Dec, [place] [address] [place] [id number] [place] [phone] Nov, [place] [address] [phone] Nov, [place] [address] [phone] Nov, Annual physical exam V70.0 ; Urinary incontinence 788.30 ; Diabetes 250.00 and Hypertension 401.9 [place] [address] [place] [id number] [address] [place] [phone] Oct, Diabetes mellitus without me ntion of complication, type II or unspecified type, uncontrolled 250.02 [place] [address] [place] [id number] [address] [place] [id number] Oct, Diabetes mellitus without me ntion of complication, type II or unspecified type, uncontrolled 250.02 [place] [address] [place] [id number] [address] [place] [phone] Oct, Diabetes mellitus without me ntion of complication, type II or unspecified type, uncontrolled 250.02 [place] [address] [place] [id number] [address] [place] [phone] Oct, [place] [address] [place] [id number] [place] [phone] Oct, [facility] [address] [id number] [address] [place] [phone] Oct, Bipolar disorder, unspecifie d 296.80 [facility] [address] [id number] [address] [place] [address] [id number] Sep, Dental examination V72.2 [facility] [address] [id number] [address] [place] [phone] August, [facility] [address] [id number] [address] [place] [id number] August, Dental examination V72.2 [facility] [address] [id number] [address] [place] [phone] August, [facility] [address] [id number] [address] [place] [phone] Jul, [facility] [address] [id number] [address] [place] [phone] Jul, [facility] [address] [id number] [address] [place] [phone] Jun, [facility] [address] [id number] [address] [place] [phone] Jun, [facility] [address] [id number] [address] [place] [phone] Jun, [facility] [facility] [address] [id number] [address] [place] [id number] Jun, [facility] [address] [id number] [address] [place] [id number] May, [facility] [address] [id number] [address] [place] [id number] May, [facility] [address] [id number] [address] [place] [id number] May, [facility] [address] [id number] [address] [place] [id number] May, 2014 [facility] [address] [id number] [address] [place] [address], [place] [address] 16 May, 2014 [facility] [address] [id number] [address] [place] [address], [place] [address] 16 May, 2014 [facility] [address] [id number] [address] [place] [address], [place] [address] 16 May, 2014 [facility] [address] [id number] [address] [place] [address], [place] [address] May, 2014 [facility] [address] [id number] [address] [place] [address], [place] [address] May, 2014 [facility] [address] [id number] [address] [place] [address], [place] [address] 16 May, 2014 [facility] [address] [id number] [address] [place] [address], [place] [address] 16 May, 2014 [facility] [address] [id number] [address] [place] [address], [place] [address] May, 2014 [facility] [address] [id number] [address] [place] [address], [place] [address] May, 2014 [facility] [address] [id number] [address] [place] [address] 16 May, 2014 [facility] [address] [id number] [address] [place] [address], [place] [address] May, 2014 [facility] [address] [id number] [address] [place] [id number] Apr, [facility] [place] [address] [id number] [address] [place] [address], [place] [address] Apr, [facility] [address] [id number] [address] [place] [id number] Apr, [facility] [address] [id number] [address] [place] [id number] Apr, [facility] [address] [id number] [address] [place] [address], [place] [address] Apr, [facility] [address] [id number] [address] [place] [address], [place] [address] Apr, [facility] [address] [id number] [address] [place] [address], [place] [address] Apr, [facility] [address] [id number] [address] [place] [address], [place] [address] Apr, [facility] [address] [id number] [address] [place] [address], [place] [address] Apr, [facility] [address] [id number] [address] [place] [address], [place] [address] Apr, [facility] [address] [id number] [address] [place] [address], [place] [address] Apr, [facility] [address] [id number] [address] [place] [address], [place] [address] Apr, [facility] [address] [id number] [address] [place] [address], [place] [address] Mar, [facility] [address] [id number] [address] [place] [address], [place] [address] Mar, [facility] [address] [id number] [address] [place] [address], [place] [address] Mar, [facility] [place] [address] [id number] [address] [place] [address], [place] [address] Mar, [facility] [address] [id number] [address] [place] [address], [place] [address] Mar, [facility] [place] [facility] [address] [id number] [address] [place] [address], [place] [address] Mar, [facility] [place] [address] [id number] [address] [place] [address], [place] [address] Feb, [facility] [place] [address] [id number] [address] [place] [address], [place] [address] Feb, [facility] [place] [address] [id number] [address] [place] [address], [place] [address] Feb, [facility] [place] [address] [id number] [address] [place] [address], [place] [address] Feb, [facility] [address] [id number] [address] [place] [address], [place] [address] 14 Jan, 2014 [facility] [address] [id number] [address] [place] [address], [place] [address] 14 Jan, 2014 [facility] [place] [address] [id number] [address] [place] [address], [place] [address] 14 Jan, 2014 [facility] [place] [address] [id number] [address] [place] [address], [place] [address] 14 Jan, 2014 [facility] [address] [id number] [address] [place] [address], [place] [address] 22 Dec, 2013 [facility] [place] [address] [id number] [address] [place] [address], [place] [address] 22 Dec, 2013 [facility] [place] [facility] [address] [id number] [address] [place] [address], [place] [address] 15 Dec, 2013 [facility] [place] [facility] [address] [id number] [address] [place] [address], [place] [address] 15 Dec, 2013 [facility] [place] [address] [id number] [address] [place] [address], [place] [address] Nov, [facility] [place] [address] [id number] [address] [place] [address], [place] [address] Nov, [facility] [place] [address] [id number] [address] [place] [address], [place] [address] Nov, [facility] [place] [facility] [address] [id number] [address] [place] [address], [place] [address] Nov, [facility] [place] [address] [id number] [address] [place] [address], [place] [address] Nov, [facility] [place] [facility] [address] [id number] [facility] [place] [address] Nov, [facility] [address] [id number] [address] [place] [address], [place] [address] Nov, [facility] [place] [address] [id number] [address] [place] [address], [place] [address] Oct, [facility] [place] [facility] [address] [id number] [address] [place] [address], [place] [address] Oct, [facility] [place] [address] [id number] [address] [place] [address], [place] [address] Oct, [facility] [place] [facility] [address] [id number] [address] [place] [address], [place] [address] Oct, [facility] [address] [id number] [address] [place] [address], [place] [address] Oct, [facility] [address] [id number] [address] [place] [address], [place] [address] Oct, [facility] [address] [id number] [address] [place] [address], [place] [address] Oct, [facility] [address] [id number] [address] [place] [address], [place] [address] Sep, [facility] [address] [id number] [address] [place] [address], [place] [address] Sep, [facility] [place] [facility] [address] [id number] [address] [place] [address], [place] [address] Sep, [facility] [place] [facility] [address] [id number] [address] [place] [address], [place] [address] Sep, [facility] [place] [facility] [address] [id number] [address] [place] [address], [place] [address] Sep, [facility] [place] [facility] [address] [id number] [address] [place] [address], [place] [address] Jul, [facility] [place] [facility] [address] [id number] [address] [place] [address], [place] [address] Jul, [facility] [address] [id number] [facility] [place] [address] Jul, [facility] [address] [id number] [facility] [place] [address] Jul, [facility] [address] [id number] [address] [place] [address], [place] [address] Jul, [facility] [address] [id number] [address] [place] [address], [place] [address] Jul, [facility] [address] [id number] [address] [place] [address], [place] [address] Jul, [facility] [address] [id number] [address] [place] [address], [place] [address] Jul, [facility] [address] [id number] [address] [place] [address], [place] [address] Jul, [facility] [address] [id number] [address] [place] [address], [place] [address] Jul, [facility] [address] [id number] [address] [place] [address], [place] [address] Jul, [facility] [address] [id number] [address] [place] [address], [place] [address] Jul, [facility] [address] [id number] [address] [place] [address], [place] [address] Jun, [facility] [address] [id number] [address] [place] [address], [place] [address] Jun, [facility] [address] [id number] [address] [place] [address], [place] [address] Jun, [facility] [place] [address] [id number] [address] [place] [address], [place] [address] Jun, [facility] [place] [facility] [address] [id number] [address] [place] [address], [place] [address] Jun, [facility] [address] [id number] [address] [place] [address] Jun, [facility] [address] [id number] [address] [place] [address], [place] [address] Jun, [facility] [place] [facility] [address] [id number] [address] [place] [address], [place] [address] Jun, [facility] [address] [id number] [address] [place] [address], [place] [address] May, [facility] [address] [id number] [address] [place] [address], [place] [address] May, [facility] [address] [id number] [address] [place] [address], [place] [address] May, [facility] [address] [id number] [address] [place] [address], [place] [address] May, [facility] [place] [facility] [address] [id number] [address] [place] [address], [place] [address] May, [facility] [address] [id number] [address] [place] [address], [place] [address] May, [facility] [place] [facility] [address] [id number] [address] [place] [address], [place] [address] May, [facility] [address] [id number] [address] [place] [address], [place] [address] May, [facility] [place] [facility] [address] [id number] [address] [place] [address], [place] [address] Apr, [facility] [address] [id number] [address] [place] [address], [place] [address] Apr, [facility] [address] [id number] [address] [place] [address], [place] [address] Apr, [facility] [address] [id number] [address] [place] [address], [place] [address] Apr, [facility] [place] [facility] [address] [id number] [address] [place] [address], [place] [address] Mar, [facility] [address] [id number] [address] [place] [address], [place] [address] Mar, [facility] [address] [id number] [address] [place] [address], [place] [address] Mar, [facility] [address] [id number] [address] [place] [address], [place] [address] Feb, [facility] [address] [id number] [address] [place] [address], [place] [address] Feb, [facility] [address] [id number] [address] [place] [address], [place] [address] Feb, [facility] [address] [id number] [address] [place] [address], [place] [address] Feb, [facility] [address] [id number] [address] [place] [address], [place] [address] Feb, [facility] [address] [id number] [address] [place] [address], [place] [address] Feb, [facility] [address] [id number] [address] [place] [address], [place] [address] Jan, [facility] [address] [id number] [address] [place] [address] Jan, [facility] [address] [id number] [address] [place] [address] Jan, [facility] [address] [id number] [address] [place] [address] Jan, [facility] [address] [id number] [address] [place] [address], [place] [address] Jan, [facility] [address] [id number] [address] [place] [address] Jan, [facility] [address] [id number] [address] [place] [address] Jan, [facility] [address] [id number] [address] [place] [address], [place] [address] 25 Dec, 2012 [facility] [address] [id number] [address] [place] [address], [place] [address] 16 Dec, 2012 [facility] [address] [id number] [address] [place] [address], [place] [address] Dec, [facility] [address] [id number] [address] [place] [address], [place] [address] 05 Dec, 2012 [facility] [address] [id number] [address] [place] [address], [place] [address] Nov, [facility] [address] [id number] [address] [place] [address], [place] [address] Nov, [facility] [address] [id number] [address] [place] [address], [place] [address] Nov, [facility] [address] [id number] [address] [place] [address], [place] [address] Nov, [facility] [address] [id number] [address] [place] [address], [place] [address] Nov, [facility] [address] [id number] [address] [place] [address], [place] [address] Nov, [facility] [address] [id number] [address] [place] [address], [place] [address] Nov, [facility] [address] [id number] [address] [place] [address], [place] [address] Oct, [facility] [address] [id number] [address] [place] [address], [place] [address] Oct, [facility] [address] [id number] [address] [place] [address], [place] [address] Oct, [facility] [address] [id number] [address] [place] [address], [place] [address] Oct, [facility] [address] [id number] [address] [place] [address], [place] [address] Oct, [facility] [address] [id number] [address] [place] [address], [place] [address] Oct, [facility] [address] [id number] [address] [place] [address], [place] [address] Oct, [facility] [address] [id number] [address] [place] [address], [place] [address] Oct, [facility] [address] [id number] [address] [place] [address], [place] [address] Sep, [facility] [address] [id number] [id number] August, [facility] [address] [id number] [address] [place] [address], [place] [address] August, [facility] [address] [id number] [address] [place] [address], [place] [address] Jul, [facility] [address] [id number] [address] [place] [address], [place] [address] Jul, [facility] [address] [id number] [address] [place] [address], [place] [address] Jul, [facility] [address] [id number] [address] [place] [address], [place] [address] Jul, [facility] [address] [id number] [address] [place] [address], [place] [address] Jul, [facility] [address] [id number] [address] [place] [address], [place] [address] 17 Jul, 2012 [facility] [address] [id number] [address] [place] [address], [place] [address] 16 Jul, 2012 [facility] [address] [id number] [address] [place] [address], [place] [address] Jun, [facility] [address] [id number] [address] [place] [address], [place] [address] Jun, [facility] [address] [id number] [address] [place] [address], [place] [address] 11 Jun, 2012 [facility] [address] [id number] [address] [place] [address], [place] [address] 04 Jun, 2012 [facility] [address] [id number] [address] [place] [address], [place] [address] 04 Jun, 2012 [facility] [address] [id number] [address] [place] [address], [place] [address] 19 May, 2012 [facility] [address] [id number] [address] [place] [address], [place] [address] 18 May, 2012 [facility] [address] [id number] [address] [place] [address], [place] [address] 04 May, 2012 [facility] [address] [id number] [address] [place] [address], [place] [address] 15 Apr, 2012 [facility] [address] [id number] [address] [place] [address], [place] [address] 14 Apr, 2012 [facility] [address] [id number] [address] [place] [address], [place] [address] 07 Apr, 2012 [facility] [address] [id number] [address] [place] [address], [place] [address] 31 Mar, 2012 [facility] [address] [id number] [address] [place] [address], [place] [address] 31 Mar, 2012 [facility] [address] [id number] [address] [place] [address], [place] [address] Mar, [facility] [address] [id number] [address] [place] [address], [place] [address] Mar, [facility] [address] [id number] [address] [place] [address], [place] [address] 10 Mar, 2012 [facility] [address] [id number] [address] [place] [address], [place] [address] 10 Mar, 2012 [facility] [address] [id number] [address] [place] [address], [place] [id number] 02 Feb, 2012 [facility] [address] [id number] [address] [place] [address], [place] [address] Feb, [facility] [address] [id number] [address] [place] [address], [place] [address] Jan, [facility] [address] [id number] [address] [place] [address], [place] [address] Jan, [facility] [address] [id number] [address] [place] [address], [place] [address] Dec, [facility] [address] [id number] [address] [place] [address], [place] [address] Nov, [facility] [address] [id number] [address] [place] [address], [place] [address] Nov, [facility] [address] [id number] [address] [place] [address], [place] [address] Nov, [facility] [address] [id number] [address] [place] [address], [place] [address] Nov, [facility] [address] [id number] [address] [place] [address], [place] [address] Oct, [facility] [address] [id number] [address] [place] [address], [place] [address] Oct, [facility] [address] [id number] [address] [place] [address], [place] [address] Oct, [facility] [address] [id number] [address] [place] [address], [place] [address] Sep, [facility] [address] [id number] [address] [place] [address], [place] [address] Sep, [facility] [address] [id number] [address] [place] [address], [place] [address] Sep, [facility] [address] [id number] [address] [place] [address], [place] [address] August, [facility] [address] [id number] [address] [place] [address], [place] [address] August, [facility] [address] [id number] [address] [place] [address], [place] [address] Jul, [facility] [address] [id number] [address] [place] [address], [place] [address] Jul, [facility] [address] [id number] [address] [place] [address], [place] [address] Jul, [facility] [address] [id number] [address] [place] [address], [place] [address] Jul, [facility] [address] [id number] [address] [place] [address], [place] [address] Jun, [facility] [address] [id number] [address] [place] [address], [place] [address] May, [facility] [address] [id number] [address] [place] [address], [place] [address] Apr, [facility] [address] [id number] [address] [place] [address], [place] [address] Apr, [facility] [address] [id number] [address] [place] [address], [place] [address] Apr, [facility] [address] [id number] [address] [place] [address], [place] [address] Apr, [facility] [address] [id number] [address] [place] [address], [place] [address] Apr, [facility] [address] [id number] [address] [place] [address], [place] [address] Apr, [facility] [address] [id number] [address] [place] [address], [place] [address] Mar, [facility] [address] [id number] [address] [place] [address], [place] [address] Mar, [facility] [address] [id number] [address] [place] [address], [place] [address] Feb, [facility] [address] [id number] [address] [place] [address], [place] [address] 18 Feb, 2011 [facility] [address] [id number] [address] [place] [address], [place] [address] Feb, [facility] [address] [id number] [address] [place] [address], [place] [address] Feb, [facility] [address] [id number] [address] [place] [address], [place] [address] Jan, [facility] [address] [id number] [address] [place] [address], [place] [address] Jan, [facility] [address] [id number] [address] [place] [address], [place] [address] Jan, [facility] [address] [id number] [address] [place] [address], [place] [address] Jan, [facility] [address] [id number] [address] [place] [address], [place] [address] Nov, [facility] [address] [id number] [address] [place] [address], [place] [address] Mar, [facility] [address] [id number] [address] [place] [address], [place] [address] Mar, [facility] [address] [id number] [address] [place] [address], [place] [address] 30 Feb, 2010 [facility] [address] [id number] [address] [place] [address], [place] [address] Feb, [facility] [facility] [address] [id number] [address] [place] [address], [place] [id number] Jan, [facility] [address] [id number] [address] [place] [address], [place] [id number] Jan, [facility] [address] [id number] [address] [place] [address], [place] [id number] Sep, [facility] [address] [id number] [address] [place] [address], [place] [phone] May, [facility] [address] [id number] [address] [place] [phone] Apr, [facility] [address] [id number] [address] [place] [phone] Mar, [facility] [address] [id number] [address] [place] [phone] Feb, [facility] [address] [id number] [address] [place] [phone] Feb, [facility] [address] [id number] [address] [place] [id number] Feb, [facility] [address] [id number] [address] [place] [id number] Jan, [facility] [address] [id number] [address] [place] [id number] Jan, [facility] [address] [id number] [address] [place] [phone] Jan, [facility] [address] [id number] [address] [place] [phone] Jan, [facility] [address] [id number] [address] [place] [id number] August, IMMUNIZATIONS No Known Immunizations SOCIAL HISTORY Never Assessed REASON FOR VISIT PLAN OF CARE VITAL SIGNS Height 65 in 2013-01-05 Weight 208 lbs 2013-01-05 Temperature 98.8 degrees Fahrenheit 2013-01-05 Heart Rate 72 bpm 2013-01-05 Respiratory Rate 22 2013-01-05 Blood pressure systolic 104 mmHg 2013-01-05 Blood pressure diastolic 72 mmHg 2013-01-05 MEDICATIONS Unknown Medications RESULTS No Results PROCEDURES [...] age 6 Hospitalization History surgery Hospitalization History [facility], inoh tie treatment few times for BH
--- OUTSIDE RECORDS SUMMARY | 2019-11-05 07:54 | XMS REPORT ---
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 Active 63738082 Problem Hypertensive retinopathy of both eyes H35.033 Active 0488574 Problem Open-angle glaucoma of both eyes, unspecified glaucoma stage, unspecified open-angle glaucoma type H40.10X0 Acti ve 14957272 Problem Obstructive sleep apnea G47.33 Active 59516967 Problem Type 2 diabetes mellitus with complication E11.8 Active 21531845 Problem Intermittent explosive disorder in adult F63.81 Active 84147014 Problem Bipolar disorder, unspecified F31.9 Active 87021990 Problem Mild intellectual disability F70 A ctive 89341494 Problem Other specified urinary incontinence N39.498 Active 945668571 Problem Diabetes E11.9 Active 00903230 Problem Type 2 diabetes mellitus wit h diabetic neuropathy, 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 Active 912121 299590762 Problem Essential hypertension I10 Active 73320910 Problem Reactive airway disease, mild intermittent, uncomplicated J45.20 Active 889917615 Problem Gastroesophageal reflux disease without esophagitis K21.9 Active 851314165 Problem Other diabetic neurological complication associated with type 2 diabetes mellitus E11.49 Active 435273529 Problem Neuropathy G62.9 Active 744885050 ALLERGIES No Information ENCOUNTERS Encounter Location Date Diagnosis [facility] [address] [id number] [address] [address] Dec, [facility] [address] [id number] [address] Nov, [facility] [address] [place] [address] Oct, [facility] [address] [place] [address] Sep, [facility] [address] [place] [address] Sep, [facility] [address] [place] [address] Sep, [facility] [address] [place] [address] Sep, Essential hypertension I10 [place] [address] [place] [id number] [place] [address] August, Intermittent explosive disor salvatore in adult F63.81 ; Bipolar disorder, unspecified F31.9 and Mild intellectual disability F70 [place] [address] [place] [address] Jul, Type 2 diabetes mellitus wit h diabetic neuropathy, unspecified whether termination clerk insulin use E11.40 and Colon cancer screening Z12.11 [place] [address] [place] [address] Jul, Type 2 diabetes mellitus wit h diabetic neuropathy, unspecified whether termination clerk insulin use E11.40 and Tinea pedis, unspecified laterality B35.3 [facility] [address] [place] [address] Jun, [facility] [address] [place] [address] Jun, [facility] [address] [place] [address] 04 Jun, 2019 Dysuria R30.0 [facility] [address] [place] [id number] [place] [address] Jun, [facility] [address] [place] [id number] [place] [address] 20 May, 2019 Influenza J11.1 [facility] [address] [facility] [id number] [address] [place] [address] 13 May, 2019 Intermittent explosive disor salvatore in adult F63.81 [facility] [address] [place] [id number] [place] [address] May, [facility] [address] [place] [id number] [place] [address] Apr, Intermittent explosive disor salvatore in adult F63.81 ; Bipolar disorder, unspecified F31.9 and Mild intellectual disability F70 [facility] [address] [place] [id number] [place] [address] Apr, Oral health maintenance stat us requiring routine preventive dental care K08.9 [place] [address] [place] [id number] [place] [address] Apr, Type 2 diabetes mellitus wit h complication E11.8 ; History of test for hearing Z92.89 ; Colon cancer screening Z12.11 ; Other specified urinary incontinence N39.498 and Impacted cerumen, right ear H61.21 [place] [address] [place] [id number] [place] [address] 10 Apr, 2019 Onychomycosis B35.1 ; Other diabetic neurological complication associated with type 2 diabetes mellitus E11.49 and Tinea pedis of both feet B35.3 [place] [address] [place] [id number] [place] [address] Feb, [place] [address] [place] [id number] [place] [address] Jan, [place] [address] [place] [id number] [place] [address] Jan, [place] [address] [place] [id number] [place] [address] Jan, [place] [address] [place] [id number] [place] [address] Jan, [facility] [address] [facility] [id number] [address] [place] [address] Jan, [facility] [address] [facility] [id number] [address] [place] [address] Jan, [facility] [address] [facility] [id number] [address] [place] [address] Jan, [facility] [address] [facility] [id number] [address] [place] [address] Jan, Anemia D64.9 [facility] [address] [place] [id number] [place] [address] Jan, Dental examination Z01.20 an d Oral health maintenance status requiring routine preventive dental care K08.9 [facility] [address] [facility] [id number] [address] [place] [address] Jan, Onychomycosis B35.1 and Othe r diabetic neurological complication associated with type 2 diabetes mellitus E11.49 [facility] [address] [facility] [id number] [address] [place] [address] Jan, Anemia D64.9 [facility] [address] [facility] [id number] [address] [place] [address] Jan, [facility] [address] [facility] [id number] [address] [place] [address] Dec, Urinary tract infection with out hematuria, site unspecified N39.0 [facility] [address] [facility] [id number] [address] [place] [address] Dec, Type 2 diabetes mellitus wit h complication E11.8 ; Urinary tract infection without hematuria, site unspecified N39.0 ; Impacted cerumen of both ears H61.23 ; Encounter for immunization Z23 and Hyponatremia E87.1 [facility] [address] [facility] [id number] [address] [place] [address] Dec, Intermittent explosive disor salvatore in adult F63.81 ; Dysuria R30.0 ; Type 2 diabetes mellitus with complication E11.8 ; Bipolar disorder, unspecified F31.9 and Mild intellectual disability F70 [facility] [address] [facility] [id number] [address] [place] [address] Dec, Dysuria R30.0 [facility] [address] [facility] [id number] [address] [place] [address] Dec, Intermittent explosive disor salvatore in adult F63.81 ; Bipolar disorder, unspecified F31.9 and Mild intellectual disability F70 [facility] [address] [facility] [id number] [address] [place] [address] Nov, [facility] [address] [facility] [id number] [address] [place] [address] Oct, [facility] [address] [facility] [id number] [place] [address] Oct, Oral health maintenance stat us requiring routine preventive dental care K08.9 [facility] [address] [facility] [id number] [address] [place] [address] August, Intermittent explosive disor salvatore in adult F63.81 ; Bipolar disorder, unspecified F31.9 and Mild intellectual disability F70 [facility] [address] [id number] [address] [place] [id number] August, Dental caries K02.9 [facility] [address] [facility] [id number] [address] [place] [address] Jul, Onychomycosis B35.1 ; Other diabetic neurological complication associated with type 2 diabetes mellitus E11.49 and Tinea pedis of both feet B35.3 [facility] [address] [id number] [address] [place] [id number] Jul, Caries K02.9 [facility] [address] [facility] [id number] [address] [place] [address] Jul, Type 2 diabetes mellitus wit h complication E11.8 ; Tobacco abuse Z72.0 and Bipolar disorder, unspecified F31.9 [facility] [address] [place] [id number] [place] [address] Jun, [facility] [address] [facility] [id number] [address] [place] [id number] Jun, Dental examination Z01.20 an d Oral health maintenance status requiring routine preventive dental care K08.9 [facility] [address] [place] [address] 11 May, 2018 Bilateral impacted cerumen H 61.23 [facility] [address] [place] [id number] [address] [place] [address] Apr, Bipolar disorder, unspecifie d F31.9 ; Intermittent explosive disorder in adult F63.81 ; Type 2 diabetes mellitus with complication E11.8 ; Tobacco abuse Z72.0 and Colon cancer screening Z12.11 [facility] [address] [place] [id number] [address] [place] [address] Apr, Onychomycosis B35.1 and Othe r diabetic neurological complication associated with type 2 diabetes mellitus E11.49 [facility] [address] [place] [id number] [place] [address] Apr, Intermittent explosive disor salvatore in adult F63.81 ; Bipolar disorder, unspecified F31.9 and Mild intellectual disability F70 [facility] [address] [place] [id number] [place] [address] Mar, Diabetes E11.[address] [facility] [address] [place] [id number] [place] [address] Jan, Encounter for immunization Z 23 [facility] [address] [place] [id number] [address] [place] [address] Jan, Tinea pedis of both feet B35 .3 ; Other diabetic neurological complication associated with type 2 diabetes mellitus E11.49 and Onychomycosis B35.1 [facility] [address] [place] [id number] [place] [address] Nov, Type 2 diabetes mellitus wit h complication E11.8 [facility] [address] [facility] [id number] [address] [place] [address] Nov, [facility] [address] [facility] [id number] [address] [place] [address] Oct, Intermittent explosive disor salvatore in adult F63.81 ; Bipolar disorder, unspecified F31.9 and Mild intellectual disability F70 [facility] [address] [facility] [id number] [address] [place] [address] Oct, [facility] [address] [facility] [id number] [address] [place] [address] [id number] Oct, Dental examination Z01.20 [facility] [address] [place] [id number] [place] [address] Oct, Onychomycosis B35.1 and Othe r diabetic neurological complication associated with type 2 diabetes mellitus E11.49 [place] [address] [place] [id number] [place] [address] Sep, Type 2 diabetes mellitus wit h complication E11.8 and Colon cancer screening Z12.11 [place] [address] [place] [id number] [place] [address] Sep, Type 2 diabetes mellitus wit h complication E11.8 ; Colon cancer screening Z12.11 and Neuropathy G62.9 [facility] [address] [facility] [id number] [address] [place] [address] August, Diabetes E11.9 [facility] [address] [facility] [id number] [address] [place] [address] [id number] Jul, Dental examination Z01.20 [facility] [address] [facility] [id number] [address] [place] [address] May, Mild intellectual disability F70 [facility] [address] [facility] [id number] [address] [place] [address] 07 May, 2017 Mild intellectual disability F70 ; High risk medication use Z79.899 ; Intermittent explosive disorder in adult F63.81 and Bipolar disorder, unspecified F31.9 [facility] [address] [id number] [address] [place] [address] May, [facility] [address] [id number] [address] [place] [address] May, [facility] [address] [facility] [id number] [address] [place] [address] Apr, Type 2 diabetes mellitus wit h complication E11.8 ; Mild intellectual disability F70 ; Gastroesophageal reflux disease without esophagitis K21.9 ; Reactive airway disease, mild intermittent, uncomplicated J45.20 and Tobacco abuse Z72.0 [facility] [address] [id number] [address] [place] [address] Apr, High risk medication use Z79 .899 ; Mild intellectual disability F70 ; Intermittent explosive disorder in adult F63.81 and Bipolar disorder, unspecified F31.9 [facility] [id number] [place] [address] [id number] Mar, Dental examination Z01.20 [facility] [address] [id number] [place] [address] [id number] Mar, Encounter for dental exam an d cleaning w/o abnormal findings Z01.20 [facility] [address] [id number] [address] [place] [address] 12 Jan, 2017 [facility] [address] [id number] [address] [place] [address] Jan, [facility] [address] [id number] [address] [place] [address] 10 Jan, 2017 Mild intellectual disability F70 ; Bipolar disorder, unspecified F31.9 and Intermittent explosive disorder in adult F63.81 [facility] [address] [id number] [address] [place] [address] 02 Jan, 2017 Diabetes E11.9 [facility] [address] [id number] [address] [place] [address] [id number] Dec, Encounter for dental examina tion and cleaning without abnormal findings Z01.20 [facility] [address] [id number] [address] [place] [address] 12 Dec, 2016 Bipolar disorder, unspecifie d F31.9 ; Intermittent explosive disorder in adult F63.81 and Mild intellectual disability F70 [facility] [address] [id number] [address] [place] [address] Nov, Diabetes E11.9 [facility] [address] [id number] [address] [place] [address] Nov, [facility] [address] [id number] [address] [place] [address] 14 Nov, 2016 Diabetes E11.9 and Colon can cer screening Z12.11 [facility] [address] [facility] [address] [id number] [id number] Sep, Dental examination Z01.20 [facility] [address] [id number] [address] [place] [address] [id number] Sep, Encounter for dental examina tion and cleaning without abnormal findings Z01.20 [facility] [address] [id number] [address] [place] [id number] 13 Sep, 2016 Bipolar disorder, unspecifie d F31.9 [facility] [address] [id number] [address] [place] [address] Sep, Bipolar disorder, unspecifie d F31.9 [facility] [address] [id number] [address] [place] [address] Jul, [facility] [address] [id number] [address] [place] [address] Jul, Type 2 diabetes mellitus wit h complication E11.8 [facility] [address] [id number] [id number] Jun, Dental examination Z01.20 [facility] [address] [id number] [address] [place] [address] [id number] Jun, Encounter for dental examina tion and cleaning without abnormal findings Z01.20 [facility] [address] [id number] [address] [place] [address] 18 Apr, 2016 Sports physical Z02.5 [facility] [address] [id number] [address] [place] [address] 14 Mar, 2016 Bipolar disorder, in partial remission, most recent episode manic F31.73 and Intermittent explosive disorder in adult F63.81 [facility] [address] [id number] [address] [place] [address] 08 Mar, 2016 [facility] [address] [id number] [address] [place] [address] Mar, Diabetes E11.9 [facility] [address] [id number] [address] [place] [address] [id number] Feb, Encounter for dental examina tion and cleaning without abnormal findings Z01.20 [facility] [address] [id number] [address] [place] [address] 22 Dec, 2015 Nocturnal hypoxemia G47.34 a nd Encounter for immunization Z23 [facility] [address] [id number] [address] [place] [address] Dec, [facility] [address] [id number] [address] [place] [address] Dec, [facility] [address] [id number] [address] [place] [address] Dec, Bipolar disorder, unspecifie d F31.9 [facility] [address] [id number] [address] [place] [address] [id number] Oct, Encounter for dental examina tion and cleaning without abnormal findings Z01.20 [facility] [address] [id number] [id number] Oct, Dental examination Z01.20 [facility] [address] [id number] [address] [place] [address] Oct, Diabetes E11.9 [facility] [address] [facility] [id number] [address] [place] [address] Oct, Diabetes E11.9 ; Reactive ai rway disease, mild intermittent, uncomplicated J45.20 and Tobacco abuse Z72.0 [facility] [address] [facility] [id number] [address] [place] [address] Sep, Bipolar disorder, unspecifie d F31.9 and Depression F32.9 [place] [address] [facility] [id number] [address] [place] [address] Sep, [place] [address] [facility] [id number] [address] [place] [address] August, Tinea pedis of both feet B35 .3 and DM w/o complication type II, uncontrolled E11.65 [place] [address] [facility] [id number] [address] [place] [address] Jul, [place] [address] [facility] [id number] [address] [place] [address] Jul, [place] [address] [facility] [id number] [address] [place] [address] Jul, Obstructive sleep apnea G47. 33 [place] [address] [facility] [id number] [address] [place] [address] Jun, Diabetes E11.9 [facility] [address] [facility] [id number] [address] [place] [address] Jun, [facility] [address] [facility] [id number] [address] [place] [id number] Jun, [facility] [address] [facility] [id number] [address] [place] [address] Jun, Bipolar disorder, unspecifie d F31.9 and Mental retardation F79 [facility] [address] [facility] [id number] [address] [place] [address] Apr, [facility] [address] [facility] [id number] [address] [place] [address] Feb, Diabetes E11.9 ; Encounter f or immunization Z23 ; Cough R05 and Nicotine abuse Z72.0 [place] [address] [address] Jan, Bipolar disorder, unspecifie d F31.9 and Diabetes mellitus without mention of complication, type II or unspecified type, uncontrolled 250.02 [place] [address] [address] Jan, [place] [address] [address] Dec, Reactive airway disease 493. 90 and Enuresis 788.30 [place] [address] [address] Dec, [place] [address] [address] Nov, [place] [address] [address] Nov, [address] [address] Nov, Annual physical exam V70.0 ; Urinary incontinence 788.30 ; Diabetes 250.00 and Hypertension 401.[address] [address] Oct, Diabetes mellitus without me ntion of complication, type II or unspecified type, uncontrolled 250.02 [place] [address] [address] Oct, Diabetes mellitus without me ntion of complication, type II or unspecified type, uncontrolled 250.02 [place] [address] [address] Oct, Diabetes mellitus without me ntion of complication, type II or unspecified type, uncontrolled 250.02 [place] [address] [address] Oct, [facility] [address] [id number] [address] [place] [address] Oct, [facility] [address] [id number] [address] [place] [id number] Oct, Bipolar disorder, unspecifie d 296.80 [facility] [address] [id number] [address] [place] [id number] Sep, Dental examination V72.2 [facility] [address] [id number] [address] [place] [id number] August, [facility] [address] [id number] [address] [place] [id number] August, Dental examination V72.2 [facility] [address] [id number] [address] [place] [id number] August, [facility] [address] [id number] [address] [place] [id number] Jul, [facility] [address] [id number] [address] [place] [id number] Jul, [facility] [address] [id number] [address] [place] [id number] Jun, [facility] [address] [id number] [address] [place] [id number] Jun, [facility] [address] [id number] [address] [place] [id number] Jun, [facility] [address] [id number] [address] [place] [id number] Jun, [facility] [address] [id number] [address] [place] [address] May, [facility] [address] [id number] [address] [place] [id number] May, [facility] [address] [id number] [address] [place] [id number] May, 2014 [facility] [address] [id number] [address] [place] [address], [place] [address] 16 May, 2014 [facility] [address] [id number] [address] [place] [address], [place] [address] 16 May, 2014 [facility] [address] [id number] [address] [place] [address], [place] [address] 16 May, 2014 [facility] [address] [id number] [address] [place] [address], [place] [address] 16 May, 2014 [facility] [address] [id number] [address] [place] [address], [place] [address] May, 2014 [facility] [address] [id number] [address] [place] [address], [place] [address] 16 May, 2014 [facility] [address] [id number] [address] [place] [address], [place] [address] 16 May, 2014 [facility] [address] [id number] [address] [place] [address], [place] [address] May, 2014 [facility] [address] [id number] [address] [place] [address], [place] [address] May, 2014 [facility] [address] [id number] [address] [place] [address], [place] [address] 16 May, 2014 [facility] [address] [id number] [address] [place] [address], [place] [address] May, 2014 [facility] [address] [id number] [address] [place] [address], [place] [address] May, [facility] [address] [id number] [address] [place] [address], [place] [address] Apr, [facility] [address] [id number] [address] [place] [address], [place] [address] Apr, [facility] [address] [id number] [address] [place] [id number] Apr, [facility] [address] [id number] [address] [place] [address], [place] [address] Apr, [facility] [address] [id number] [address] [place] [address], [place] [address] Apr, [facility] [address] [id number] [address] [place] [address], [place] [address] Apr, [facility] [address] [id number] [address] [place] [address], [place] [address] Apr, [facility] [address] [id number] [address] [place] [address], [place] [address] Apr, [facility] [address] [id number] [address] [place] [address], [place] [address] Apr, [facility] [address] [id number] [address] [place] [address], [place] [address] Apr, [facility] [address] [id number] [address] [place] [address], [place] [address] Apr, [facility] [address] [id number] [address] [place] [address], [place] [address] Apr, [facility] [address] [id number] [address] [place] [address], [place] [address] Mar, [facility] [address] [id number] [address] [place] [address], [place] [address] Mar, [facility] [address] [id number] [address] [place] [address], [place] [address] Mar, [facility] [address] [id number] [address] [place] [address], [place] [address] Mar, [facility] [address] [id number] [address] [place] [address], [place] [address] Mar, [facility] [address] [id number] [address] [place] [address], [place] [address] Mar, [facility] [address] [id number] [address] [place] [address], [place] [address] 13 Feb, 2014 [facility] [address] [id number] [address] [place] [address], [place] [address] 13 Feb, 2014 [facility] [address] [id number] [address] [place] [address], [place] [address] 13 Feb, 2014 [facility] [address] [id number] [address] [place] [address], [place] [address] Feb, [facility] [address] [id number] [address] [place] [address], [place] [address] 14 Jan, 2014 [facility] [address] [id number] [address] [place] [address], [place] [address] 14 Jan, 2014 [facility] [address] [id number] [address] [place] [address], [place] [address] 14 Jan, 2014 [facility] [address] [id number] [address] [place] [address], [place] [address] 14 Jan, 2014 [facility] [address] [id number] [address] [place] [address], [place] [address] 22 Dec, 2013 [facility] [address] [id number] [address] [place] [address], [place] [address] 22 Dec, 2013 [facility] [address] [id number] [address] [place] [address], [place] [address] 15 Dec, 2013 [facility] [address] [id number] [address] [place] [address], [place] [address] 15 Dec, 2013 [facility] [address] [id number] [address] [place] [address], [place] [address] Nov, [facility] [address] [id number] [address] [place] [address], [place] [address] Nov, [facility] [address] [id number] [address] [place] [address], [place] [address] Nov, [facility] [address] [id number] [address] [place] [address], [place] [address] Nov, [facility] [address] [id number] [facility] [place] [address] Nov, [facility] [address] [id number] [facility] [address] Nov, [facility] [address] [id number] [facility] [place] [address] Nov, [facility] [address] [id number] [address] [place] [address], [place] [address] Oct, [facility] [address] [id number] [address] [place] [address], [place] [address] Oct, [facility] [address] [id number] [address] [place] [address], [place] [address] Oct, [facility] [address] [id number] [address] [place] [address], [place] [address] Oct, [facility] [address] [id number] [address] [place] [address], [place] [address] Oct, [facility] [address] [id number] [address] [place] [address], [place] [address] Oct, [facility] [address] [id number] [address] [place] [address], [place] [address] Oct, [facility] [address] [id number] [address] [place] [address], [place] [address] Sep, [facility] [address] [id number] [address] [place] [address], [place] [address] Sep, [facility] [address] [id number] [address] [place] [address], [place] [address] Sep, [facility] [address] [id number] [address] [place] [address], [place] [address] Sep, [facility] [address] [id number] [address] [place] [address], [place] [address] Sep, [facility] [address] [id number] [address] [place] [address], [place] [address] Jul, [facility] [address] [id number] [facility] [place] [address] Jul, [facility] [address] [id number] [address] [place] [address], [place] [address] Jul, [facility] [address] [id number] [address] [place] [address], [place] [address] Jul, [facility] [address] [id number] [address] [place] [address], [place] [address] Jul, [facility] [address] [id number] [address] [place] [address], [place] [address] Jul, [facility] [address] [id number] [address] [place] [address], [place] [address] Jul, [facility] [address] [id number] [address] [place] [address], [place] [address] Jul, [facility] [address] [id number] [address] [place] [address], [place] [address] Jul, [facility] [address] [id number] [address] [place] [address], [place] [address] Jul, [facility] [address] [id number] [address] [place] [address], [place] [address] Jul, [facility] [address] [id number] [address] [place] [address], [place] [address] Jul, [facility] [address] [id number] [address] [place] [address], [place] [address] Jun, [facility] [address] [id number] [address] [place] [address], [place] [address] Jun, [facility] [address] [id number] [address] [place] [address], [place] [address] Jun, [facility] [address] [id number] [address] [place] [address], [place] [address] Jun, [facility] [address] [id number] [address] [place] [address], [place] [address] Jun, [facility] [address] [id number] [address] [place] [address], [place] [address] Jun, [facility] [address] [id number] [address] [place] [address], [place] [address] Jun, [facility] [address] [id number] [address] [place] [address], [place] [address] Jun, [facility] [address] [id number] [address] [place] [address], [place] [address] May, [facility] [address] [id number] [address] [place] [address], [place] [address] May, [facility] [address] [id number] [address] [place] [address], [place] [address] May, [facility] [address] [id number] [address] [place] [address], [place] [address] May, [facility] [address] [id number] [address] [place] [address], [place] [address] May, [facility] [address] [id number] [address] [place] [address], [place] [address] May, [facility] [address] [id number] [address] [place] [address], [place] [address] May, [facility] [address] [id number] [address] [place] [address], [place] [address] May, [facility] [address] [id number] [address] [place] [address], [place] [address] Apr, [facility] [address] [id number] [address] [place] [address], [place] [address] Apr, [facility] [address] [id number] [address] [place] [address], [place] [address] Apr, [facility] [address] [id number] [address] [place] [address], [place] [address] Apr, [facility] [address] [id number] [address] [place] [address], [place] [address] Mar, [facility] [address] [id number] [address] [place] [address], [place] [address] Mar, [facility] [address] [id number] [address] [place] [address], [place] [address] Mar, [facility] [address] [id number] [address] [place] [address], [place] [address] Feb, [facility] [address] [id number] [address] [place] [address], [place] [address] Feb, [facility] [address] [id number] [address] [place] [address], [place] [address] Feb, [facility] [address] [id number] [address] [place] [address], [place] [address] Feb, [facility] [address] [id number] [address] [place] [address], [place] [address] Feb, [facility] [address] [id number] [address] [place] [address], [place] [address] Feb, [facility] [address] [id number] [address] [place] [address], [place] [address] Jan, [facility] [address] [id number] [address] [place] [address], [place] [address] Jan, [facility] [address] [id number] [address] [place] [address], [place] [address] Jan, [facility] [address] [id number] [address] [place] [address], [place] [address] Jan, [facility] [address] [id number] [address] [place] [address], [place] [address] Jan, [facility] [address] [id number] [address] [place] [address], [place] [address] Jan, [facility] [address] [id number] [address] [place] [address], [place] [address] 2013 [facility] [address] [id number] [address] [place] [address], [place] [address] 25 Dec, 2012 [facility] [address] [id number] [address] [place] [address], [place] [address] 16 Dec, 2012 [facility] [address] [id number] [address] [place] [address], [place] [address] 10 Dec, 2012 [facility] [address] [id number] [address] [place] [address], [place] [address] 05 Dec, 2012 [facility] [address] [id number] [address] [place] [address], [place] [address] Nov, [facility] [address] [id number] [address] [place] [address], [place] [address] Nov, [facility] [address] [id number] [address] [place] [address], [place] [address] Nov, [facility] [address] [id number] [address] [place] [address], [place] [address] Nov, [facility] [address] [id number] [address] [place] [address], [place] [address] Nov, [facility] [address] [id number] [address] [place] [address], [place] [address] Nov, [facility] [address] [id number] [address] [place] [address], [place] [address] Nov, [facility] [address] [id number] [address] [place] [address], [place] [address] Oct, [facility] [address] [id number] [address] [place] [address], [place] [address] Oct, [facility] [address] [id number] [address] [place] [address], [place] [address] Oct, [facility] [address] [id number] [address] [place] [address], [place] [address] Oct, [facility] [address] [id number] [address] [place] [address], [place] [address] Oct, [facility] [address] [id number] [address] [place] [address], [place] [address] Oct, [facility] [address] [id number] [address] [place] [address], [place] [address] Oct, [facility] [address] [id number] [address] [place] [address], [place] [address] Oct, [facility] [address] [id number] [address] [place] [address], [place] [address] Sep, Suleiman PEREZ [address] [id number] [place] [id number] August, [facility] [address] [id number] [address] [place] [address], [place] [address] August, [facility] [address] [id number] [address] [place] [address], [place] [address] Jul, [facility] [address] [id number] [address] [place] [address], [place] [address] Jul, [facility] [address] [id number] [address] [place] [address], [place] [address] Jul, [facility] [address] [id number] [address] [place] [address], [place] [address] Jul, [facility] [address] [id number] [address] [place] [address], [place] [address] 18 Jul, 2012 [facility] [address] [id number] [address] [place] [address], [place] [address] 17 Jul, 2012 [facility] [address] [id number] [address] [place] [address], [place] [address] 16 Jul, 2012 [facility] [address] [id number] [address] [place] [address], [place] [address] Jun, [facility] [address] [id number] [address] [place] [address], [place] [id number] 18 Jun, 2012 [facility] [address] [id number] [address] [place] [address], [place] [address] 11 Jun, 2012 [facility] [address] [id number] [address] [place] [address], [place] [address] 04 Jun, 2012 [facility] [address] [id number] [address] [place] [address], [place] [address] 04 Jun, 2012 [facility] [address] [id number] [address] [place] [address], [place] [address] 19 May, 2012 [facility] [address] [id number] [address] [place] [address], [place] [address] 18 May, 2012 [facility] [address] [id number] [address] [place] [address], [place] [address] 04 May, 2012 [facility] [address] [id number] [address] [place] [address], [place] [address] 15 Apr, 2012 [facility] [address] [id number] [address] [place] [address], [place] [address] 14 Apr, 2012 [facility] [address] [id number] [address] [place] [address], [place] [address] 07 Apr, 2012 [facility] [address] [id number] [address] [place] [address], [place] [address] 31 Mar, 2012 [facility] [address] [id number] [address] [place] [address], [place] [address] 31 Mar, 2012 [facility] [address] [id number] [address] [place] [address], [place] [address] 13 Mar, 2012 [facility] [address] [id number] [address] [place] [address], [place] [address] 13 Mar, 2012 [facility] [address] [id number] [address] [place] [address], [place] [address] 10 Mar, 2012 [facility] [address] [id number] [address] [place] [address], [place] [address] Mar, [facility] [address] [id number] [address] [place] [address], [place] [id number] Feb, [facility] [address] [id number] [address] [place] [address], [place] [id number] Feb, [facility] [address] [id number] [address] [place] [address], [place] [id number] Jan, [facility] [address] [id number] [address] [place] [address], [place] [id number] Jan, [facility] [address] [id number] [address] [place] [address], [place] [id number] Dec, [facility] [address] [id number] [address] [place] [address], [place] [id number] Nov, [facility] [address] [id number] [address] [place] [address], [place] [id number] Nov, [facility] [address] [id number] [address] [place] [address], [place] [id number] Nov, [facility] [address] [id number] [address] [place] [address], [place] [id number] Nov, [facility] [address] [id number] [address] [place] [address], [place] [id number] Oct, [facility] [address] [id number] [address] [place] [address], [place] [id number] Oct, [facility] [address] [id number] [address] [place] [address], [place] [id number] Oct, [facility] [address] [id number] [address] [place] [address], [place] [id number] Sep, [facility] [address] [id number] [address] [place] [address], [place] [id number] Sep, [facility] [address] [id number] [address] [place] [address], [place] [id number] Sep, [facility] [address] [id number] [address] [place] [address], [place] [id number] August, [facility] [address] [id number] [address] [place] [address], [place] [id number] August, [facility] [address] [id number] [address] [place] [address], [place] [id number] Jul, [facility] [address] [id number] [address] [place] [address], [place] [id number] Jul, [facility] [address] [id number] [address] [place] [address], [place] [id number] Jul, [facility] [address] [id number] [address] [place] [address], [place] [id number] Jul, [facility] [address] [id number] [address] [place] [address], [place] [id number] Jun, [facility] [address] [id number] [address] [place] [address], [place] [id number] May, [facility] [address] [id number] [address] [place] [address], [place] [id number] Apr, [facility] [address] [id number] [address] [place] [address], [place] [id number] Apr, [facility] [address] [id number] [address] [place] [address], [place] [id number] Apr, [facility] [address] [id number] [address] [place] [address], [place] [id number] Apr, [facility] [address] [id number] [address] [place] [address], [place] [id number] Apr, [facility] [address] [id number] [address] [place] [address], [place] [id number] Apr, [facility] [address] [id number] [address] [place] [address], [place] [id number] Mar, [facility] [address] [id number] [address] [place] [address], [place] [id number] Mar, [facility] [address] [id number] [address] [place] [address], [place] [id number] 29 Feb, 2011 [facility] [address] [id number] [address] [place] [address], [place] [id number] Feb, [facility] [address] [id number] [address] [place] [address], [place] [id number] Feb, [facility] [address] [id number] [address] [place] [address], [place] [id number] Feb, [facility] [address] [id number] [address] [place] [address], [place] [id number] Jan, [facility] [address] [id number] [address] [place] [address], [place] [id number] Jan, [facility] [address] [id number] [address] [place] [address], [place] [id number] Jan, [facility] [address] [id number] [address] [place] [address], [place] [id number] Jan, [facility] [address] [id number] [address] [place] [address], [place] [id number] Nov, [facility] [address] [id number] [address] [place] [address], [place] [id number] Mar, [facility] [address] [id number] [address] [place] [address], [place] [id number] Mar, [facility] [address] [id number] [address] [place] [address], [place] [id number] 30 Feb, 2010 [facility] [address] [id number] [address] [place] [address], [place] [id number] 15 Feb, 2010 [facility] [address] [id number] [address] [place] [address], [place] [id number] Jan, [facility] [address] [id number] [address] [place] [address], [place] [id number] Jan, [facility] [address] [id number] [address] [place] [address], [place] [id number] Sep, [facility] [address] [id number] [address] [place] [id number] May, [facility] [address] [id number] [address] [place] [id number] Apr, [facility] [address] [address] [id number] [address] [place] [id number] Mar, [facility] [address] [id number] [address] [place] [id number] Feb, [facility] [address] [id number] [address] [place] [id number] Feb, [facility] [address] [id number] [address] [place] [id number] Feb, [facility] [address] [id number] [address] [place] [id number] Jan, [facility] [address] [id number] [address] [place] [id number] Jan, [facility] [address] [id number] [address] [place] [id number] Jan, [facility] [address] [id number] [address] [place] [id number] Jan, [facility] [address] [id number] [address] [place] [id number] August, IMMUNIZATIONS No Known Immunizations SOCIAL HISTORY Never Assessed REASON FOR VISIT PLAN OF CARE VITAL SIGNS Height 65 in 2012-11-04 Weight 207 lbs 2012-11-04 Temperature 98.7 degrees Fahrenheit 2012-11-04 Heart Rate 80 bpm 2012-11-04 Respiratory Rate 20 2012-11-04 Blood pressure systolic 100 mmHg 2012-11-04 Blood pressure diastolic 64 mmHg 2012-11-04 MEDICATIONS Unknown Medications RESULTS No Results PROCEDURES Procedure Date Ordered Result Body Site SLEEP STUDY, UNATTENDED November 04, 2012 INSTRUCTIONS MEDICATIONS ADMINISTERED No Known Medications [...] age 6 Hospitalization History surgery Hospitalization History [facility], [facility] treatment few times for BH
--- OUTSIDE RECORDS SUMMARY | 2019-11-05 07:54 | XMS REPORT ---
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 Active 90003547 Problem Hypertensive retinopathy of both eyes H35.033 Active 9737048 Problem Open-angle glaucoma of both eyes, unspecified glaucoma stage, unspecified open-angle glaucoma type H40.10X0 Acti ve 55609490 Problem Obstructive sleep apnea G47.33 Active 77661209 Problem Type 2 diabetes mellitus with complication E11.8 Active 52504270 Problem Intermittent explosive disorder in adult F63.81 Active 80572643 Problem Bipolar disorder, unspecified F31.9 Active 75430943 Problem Mild intellectual disability F70 A ctive 00927881 Problem Other specified urinary incontinence N39.498 Active 375155500 Problem Diabetes E11.9 Active 47922715 Problem Type 2 diabetes mellitus wit h diabetic neuropathy, unspecified whether group home insulin use E11.40 Active 382815 953133475 Problem Essential hypertension I10 Active 09884245 Problem Reactive airway disease, mild intermittent, uncomplicated J45.20 Active 862364559 Problem Gastroesophageal reflux disease without esophagitis K21.9 Active 720229941 Problem Other diabetic neurological complication associated with type 2 diabetes mellitus E11.49 Active 839725485 Problem Neuropathy G62.9 Active 253408642 ALLERGIES No Information ENCOUNTERS Encounter Location Date Diagnosis [facility] [address] [id number] [place] [address] Dec, [facility] [address] [id number] [address] Nov, [facility] [address] [place] [address] Oct, [facility] [address] [place] [address] Sep, [facility] [address] [place] [address] Sep, [facility] [address] [place] [address] Sep, [facility] [address] [place] [address] Sep, Essential hypertension I10 [place] [address] [place] [id number] [place] [address] August, Intermittent explosive disor salvatore in adult F63.81 ; Bipolar disorder, unspecified F31.9 and Mild intellectual disability F70 [place] [address] [place] [address] Jul, Type 2 diabetes mellitus wit h diabetic neuropathy, 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.40 and Colon cancer screening Z12.11 [place] [address] [place] [address] Jul, Type 2 diabetes mellitus wit h diabetic neuropathy, 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.40 and Tinea pedis, unspecified laterality B35.3 [facility] [address] [place] [address] Jun, [facility] [address] [place] [address] Jun, [facility] [address] [place] [address] 04 Jun, 2019 Dysuria R30.0 [facility] [address] [place] [id number] [address] [place] [address] Jun, [facility] [address] [place] [id number] [place] [address] 20 May, 2019 Influenza J11.1 [facility] [address] [facility] [id number] [address] [place] [address] 13 May, 2019 Intermittent explosive disor salvatore in adult F63.81 [facility] [address] [place] [id number] [place] [address] May, [facility] [address] [place] [id number] [place] [address] Apr, Intermittent explosive disor salvatore in adult F63.81 ; Bipolar disorder, unspecified F31.9 and Mild intellectual disability F70 [facility] [address] [place] [id number] [place] [address] Apr, Oral health maintenance stat us requiring routine preventive dental care K08.9 [place] [address] [place] [id number] [place] [address] Apr, Type 2 diabetes mellitus wit h complication E11.8 ; History of test for hearing Z92.89 ; Colon cancer screening Z12.11 ; Other specified urinary incontinence N39.498 and Impacted cerumen, right ear H61.21 [place] [address] [place] [id number] [place] [id number] 10 Apr, 2019 Onychomycosis B35.1 ; Other diabetic neurological complication associated with type 2 diabetes mellitus E11.49 and Tinea pedis of both feet B35.3 [place] [address] [place] [id number] [place] [address] Feb, [place] [address] [place] [id number] [place] [id number] Jan, [place] [address] [place] [id number] [place] [phone] Jan, [place] [address] [place] [id number] [place] [phone] Jan, [place] [address] [place] [id number] [place] [phone] Jan, [facility] [address] [facility] [id number] [address] [place] [address] Jan, [facility] [address] [facility] [id number] [address] [place] [address] Jan, [facility] [address] [facility] [id number] [address] [place] [id number] Jan, [facility] [address] [facility] [id number] [address] [place] [address] Jan, Anemia D64.9 [facility] [address] [place] [id number] [place] [phone] Jan, Dental examination Z01.20 an d Oral health maintenance status requiring routine preventive dental care K08.9 [facility] [address] [facility] [id number] [address] [place] [address] Jan, Onychomycosis B35.1 and Othe r diabetic neurological complication associated with type 2 diabetes mellitus E11.49 [facility] [address] [facility] [id number] [address] [place] [address] Jan, Anemia D64.9 [facility] [address] [facility] [id number] [address] [place] [phone] Jan, [facility] [address] [facility] [id number] [address] [place] [address] Dec, Urinary tract infection with out hematuria, site unspecified N39.0 [facility] [address] [facility] [id number] [address] [place] [address] Dec, Type 2 diabetes mellitus wit h complication E11.8 ; Urinary tract infection without hematuria, site unspecified N39.0 ; Impacted cerumen of both ears H61.23 ; Encounter for immunization Z23 and Hyponatremia E87.1 [facility] [address] [facility] [id number] [address] [place] [address] Dec, Intermittent explosive disor salvatore in adult F63.81 ; Dysuria R30.0 ; Type 2 diabetes mellitus with complication E11.8 ; Bipolar disorder, unspecified F31.9 and Mild intellectual disability F70 [facility] [address] [facility] [id number] [address] [place] [address] Dec, Dysuria R30.0 [facility] [address] [facility] [id number] [address] [place] [address] Dec, Intermittent explosive disor salvatore in adult F63.81 ; Bipolar disorder, unspecified F31.9 and Mild intellectual disability F70 [facility] [address] [facility] [id number] [address] [place] [id number] Nov, [facility] [address] [facility] [id number] [address] [place] [address] Oct, [facility] [address] [facility] [id number] [place] [phone] Oct, Oral health maintenance stat us requiring routine preventive dental care K08.9 [facility] [address] [facility] [id number] [address] [place] [address] August, Intermittent explosive disor salvatore in adult F63.81 ; Bipolar disorder, unspecified F31.9 and Mild intellectual disability F70 [facility] [address] [id number] [address] [place] [id number] August, Dental caries K02.9 [facility] [address] [facility] [id number] [address] [place] [address] Jul, Onychomycosis B35.1 ; Other diabetic neurological complication associated with type 2 diabetes mellitus E11.49 and Tinea pedis of both feet B35.3 [facility] [address] [id number] [address] [place] [address] [id number] Jul, Caries K02.9 [facility] [address] [facility] [id number] [address] [place] [address] Jul, Type 2 diabetes mellitus wit h complication E11.8 ; Tobacco abuse Z72.0 and Bipolar disorder, unspecified F31.9 [facility] [address] [place] [id number] [address] [place] [address] Jun, [facility] [address] [facility] [id number] [address] [place] [address] [id number] Jun, Dental examination Z01.20 an d Oral health maintenance status requiring routine preventive dental care K08.9 [facility] [address] [place] [address] 11 May, 2018 Bilateral impacted cerumen H 61.23 [facility] [address] [place] [id number] [address] [place] [address] Apr, Bipolar disorder, unspecifie d F31.9 ; Intermittent explosive disorder in adult F63.81 ; Type 2 diabetes mellitus with complication E11.8 ; Tobacco abuse Z72.0 and Colon cancer screening Z12.11 [facility] [address] [place] [id number] [address] [place] [phone] Apr, Onychomycosis B35.1 and Othe r diabetic neurological complication associated with type 2 diabetes mellitus E11.49 [facility] [address] [place] [id number] [address] [place] [address] Apr, Intermittent explosive disor salvatore in adult F63.81 ; Bipolar disorder, unspecified F31.9 and Mild intellectual disability F70 [facility] [address] [place] [id number] [address] [place] [id number] Mar, Diabetes E11.9 [facility] [address] [place] [id number] [place] [phone] Jan, Encounter for immunization Z 23 [facility] [address] [place] [id number] [address] [place] [phone] Jan, Tinea pedis of both feet B35 .3 ; Other diabetic neurological complication associated with type 2 diabetes mellitus E11.49 and Onychomycosis B35.1 [facility] [address] [place] [id number] [address] [place] [id number] Nov, Type 2 diabetes mellitus wit h complication E11.8 [facility] [address] [facility] [id number] [address] [place] [phone] Nov, [facility] [address] [facility] [id number] [address] [place] [phone] Oct, Intermittent explosive disor salvatore in adult F63.81 ; Bipolar disorder, unspecified F31.9 and Mild intellectual disability F70 [facility] [address] [facility] [id number] [address] [place] [phone] Oct, [facility] [address] [facility] [id number] [address] [place] [address] [id number] Oct, Dental examination Z01.20 [facility] [address] [place] [id number] [place] [id number] Oct, Onychomycosis B35.1 and Othe r diabetic neurological complication associated with type 2 diabetes mellitus E11.49 [place] [address] [place] [id number] [address] [place] [id number] Sep, Type 2 diabetes mellitus wit h complication E11.8 and Colon cancer screening Z12.11 [place] [address] [place] [id number] [address] [place] [id number] Sep, Type 2 diabetes mellitus wit h complication E11.8 ; Colon cancer screening Z12.11 and Neuropathy G62.9 [facility] [address] [facility] [id number] [address] [place] [address] August, Diabetes E11.9 [facility] [address] [facility] [id number] [address] [place] [address] [id number] Jul, Dental examination Z01.20 [facility] [address] [facility] [id number] [address] [place] [address] May, Mild intellectual disability F70 [facility] [address] [facility] [id number] [address] [place] [address] 07 May, 2017 Mild intellectual disability F70 ; High risk medication use Z79.899 ; Intermittent explosive disorder in adult F63.81 and Bipolar disorder, unspecified F31.9 [facility] [address] [id number] [address] [place] [phone] May, [facility] [address] [id number] [address] [place] [address] May, [facility] [address] [id number] [address] [place] [phone] Apr, Type 2 diabetes mellitus wit h complication E11.8 ; Mild intellectual disability F70 ; Gastroesophageal reflux disease without esophagitis K21.9 ; Reactive airway disease, mild intermittent, uncomplicated J45.20 and Tobacco abuse Z72.0 [facility] [address] [id number] [address] [place] [address] Apr, High risk medication use Z79 .899 ; Mild intellectual disability F70 ; Intermittent explosive disorder in adult F63.81 and Bipolar disorder, unspecified F31.9 [facility] [id number] [place] [address] [id number] Mar, Encounter for dental exam an d cleaning w/o abnormal findings Z01.20 [facility] [address] [id number] [address] [place] [address] [id number] Mar, Dental examination Z01.20 [facility] [address] [id number] [address] [place] [id number] 12 Jan, 2017 [facility] [address] [id number] [address] [place] [phone] Jan, [facility] [address] [id number] [address] [place] [phone] 10 Jan, 2017 Mild intellectual disability F70 ; Bipolar disorder, unspecified F31.9 and Intermittent explosive disorder in adult F63.81 [facility] [address] [id number] [address] [place] [id number] 02 Jan, 2017 Diabetes E11.9 [facility] [address] [id number] [address] [place] [address] [id number] Dec, Encounter for dental examina tion and cleaning without abnormal findings Z01.20 [facility] [address] [id number] [address] [place] [id number] 12 Dec, 2016 Bipolar disorder, unspecifie d F31.9 ; Intermittent explosive disorder in adult F63.81 and Mild intellectual disability F70 [facility] [address] [id number] [address] [place] [phone] Nov, Diabetes E11.9 [facility] [address] [id number] [address] [place] [phone] Nov, [facility] [address] [id number] [address] [place] [address] Nov, Diabetes E11.9 and Colon can cer screening Z12.[address] [facility] [address] [id number] [id number] Sep, Dental examination Z01.20 [facility] [address] [id number] [address] [place] [address] [id number] Sep, Encounter for dental examina tion and cleaning without abnormal findings Z01.20 [facility] [address] [id number] [address] [place] [id number] Sep, Bipolar disorder, unspecifie d F31.9 [facility] [address] [id number] [address] [place] [id number] Sep, Bipolar disorder, unspecifie d F31.9 [facility] [address] [id number] [address] [place] [phone] Jul, [facility] [address] [id number] [address] [place] [id number] 13 Jul, 2016 Type 2 diabetes mellitus wit h complication E11.8 [facility] [address] [id number] [address] [place] [address] [id number] 15 Jun, 2016 Encounter for dental examina tion and cleaning without abnormal findings Z01.[address] [facility] [address] [id number] [id number] Jun, Dental examination Z01.20 [facility] [address] [id number] [address] [place] [phone] 18 Apr, 2016 Sports physical Z02.5 [facility] [address] [id number] [address] [place] [id number] 14 Mar, 2016 Bipolar disorder, in partial remission, most recent episode manic F31.73 and Intermittent explosive disorder in adult F63.81 [facility] [address] [id number] [address] [place] [phone] 08 Mar, 2016 [facility] [address] [id number] [address] [place] [phone] 06 Mar, 2016 Diabetes E11.9 [facility] [address] [id number] [address] [place] [address] [id number] Feb, Encounter for dental examina tion and cleaning without abnormal findings Z01.20 [facility] [address] [id number] [address] [place] [id number] 22 Dec, 2015 Nocturnal hypoxemia G47.34 a nd Encounter for immunization Z23 [facility] [address] [id number] [address] [place] [id number] 15 Dec, 2015 [facility] [address] [id number] [address] [place] [phone] Dec, [facility] [address] [id number] [address] [place] [id number] Dec, Bipolar disorder, unspecifie d F31.9 [facility] [address] [id number] [address] [place] [address] [id number] Oct, Encounter for dental examina tion and cleaning without abnormal findings Z01.20 [facility] [address] [id number] [id number] Oct, Dental examination Z01.20 [facility] [address] [id number] [address] [place] [id number] Oct, Diabetes E11.9 [facility] [address] [facility] [id number] [address] [place] [address] Oct, Diabetes E11.9 ; Reactive ai rway disease, mild intermittent, uncomplicated J45.20 and Tobacco abuse Z72.0 [facility] [address] [facility] [id number] [address] [place] [address] Sep, Bipolar disorder, unspecifie d F31.9 and Depression F32.9 [place] [address] [facility] [id number] [address] [place] [phone] Sep, [place] [address] [facility] [id number] [address] [place] [phone] August, Tinea pedis of both feet B35 .3 and DM w/o complication type II, uncontrolled E11.65 [place] [address] [facility] [id number] [address] [place] [phone] Jul, [place] [address] [facility] [id number] [address] [place] [phone] Jul, [place] [address] [facility] [id number] [address] [place] [address] Jul, Obstructive sleep apnea G47. 33 [place] [address] [facility] [id number] [address] [place] [id number] Jun, Diabetes E11.9 [facility] [address] [facility] [id number] [address] [place] [phone] Jun, [facility] [address] [facility] [id number] [address] [place] [phone] Jun, [facility] [address] [facility] [id number] [address] [place] [phone] Jun, Bipolar disorder, unspecifie d F31.9 and Mental retardation F79 [facility] [address] [facility] [id number] [address] [place] [phone] Apr, [facility] [address] [facility] [id number] [address] [place] [phone] Feb, Diabetes E11.9 ; Encounter f or immunization Z23 ; Cough R05 and Nicotine abuse Z72.0 [place] [address] [phone] Jan, Bipolar disorder, unspecifie d F31.9 and Diabetes mellitus without mention of complication, type II or unspecified type, uncontrolled 250.02 [place] [address] [phone] Jan, [place] [address] [address] Dec, Reactive airway disease 493. 90 and Enuresis 788.30 [place] [address] [address] Dec, [place] [address] [address] Nov, [place] [address] [address] Nov, [address] [address] Nov, Annual physical exam V70.0 ; Urinary incontinence 788.30 ; Diabetes 250.00 and Hypertension 401.[address] [address] Oct, Diabetes mellitus without me ntion of complication, type II or unspecified type, uncontrolled 250.02 [place] [address] [address] Oct, Diabetes mellitus without me ntion of complication, type II or unspecified type, uncontrolled 250.02 [place] [address] [address] Oct, Diabetes mellitus without me ntion of complication, type II or unspecified type, uncontrolled 250.02 [place] [address] [address] Oct, [facility] [address] [id number] [address] [place] [phone] Oct, [facility] [address] [id number] [address] [place] [phone] Oct, Bipolar disorder, unspecifie d 296.80 [facility] [address] [id number] [address] [place] [id number] Sep, Dental examination V72.2 [facility] [address] [id number] [address] [place] [id number] August, [facility] [address] [id number] [address] [place] [id number] August, Dental examination V72.2 [facility] [address] [id number] [address] [place] [id number] August, [facility] [address] [id number] [address] [place] [id number] Jul, [facility] [address] [id number] [address] [place] [phone] Jul, [facility] [address] [id number] [address] [place] [id number] Jun, [facility] [address] [id number] [address] [place] [id number] Jun, [facility] [address] [id number] [address] [place] [phone] Jun, [facility] [address] [id number] [address] [place] [phone] Jun, [facility] [address] [id number] [address] [place] [phone] May, [facility] [address] [id number] [address] [place] [id number] May, [facility] [address] [id number] [address] [place] [phone] May, 2014 [facility] [address] [id number] [address] [place] [address], [place] [address] 16 May, 2014 [facility] [address] [id number] [address] [place] [address], [place] [address] 16 May, 2014 [facility] [address] [id number] [address] [place] [address], [place] [address] 16 May, 2014 [facility] [address] [id number] [address] [place] [address], [place] [address] 16 May, 2014 [facility] [address] [id number] [address] [place] [address], [place] [address] May, 2014 [facility] [address] [id number] [address] [place] [address], [place] [address] 16 May, 2014 [facility] [address] [id number] [address] [place] [address], [place] [address] 16 May, 2014 [facility] [address] [id number] [address] [place] [address], [place] [address] May, 2014 [facility] [address] [id number] [address] [place] [address], [place] [address] May, 2014 [facility] [address] [id number] [address] [place] [address], [place] [address] 16 May, 2014 [facility] [address] [id number] [address] [place] [address], [place] [address] May, 2014 [facility] [address] [id number] [address] [place] [address], [place] [address] May, [facility] [address] [id number] [address] [place] [address], [place] [address] Apr, [facility] [address] [id number] [address] [place] [address], [place] [address] Apr, [facility] [address] [id number] [address] [place] [phone] Apr, [facility] [address] [id number] [address] [place] [address], [place] [address] Apr, [facility] [address] [id number] [address] [place] [address], [place] [address] Apr, [facility] [address] [id number] [address] [place] [address], [place] [address] Apr, [facility] [address] [id number] [address] [place] [address], [place] [address] Apr, [facility] [address] [id number] [address] [place] [address], [place] [address] Apr, [facility] [address] [id number] [address] [place] [address], [place] [address] Apr, [facility] [address] [id number] [address] [place] [address], [place] [address] Apr, [facility] [address] [id number] [address] [place] [address], [place] [address] Apr, [facility] [address] [id number] [address] [place] [address], [place] [address] Apr, [facility] [address] [id number] [address] [place] [address], [place] [address] Mar, [facility] [address] [id number] [address] [place] [address], [place] [address] Mar, [facility] [address] [id number] [address] [place] [address], [place] [address] Mar, [facility] [address] [id number] [address] [place] [address], [place] [address] Mar, [facility] [address] [id number] [address] [place] [address], [place] [address] Mar, [facility] [address] [id number] [address] [place] [address], [place] [address] Mar, [facility] [address] [id number] [address] [place] [address], [place] [address] 13 Feb, 2014 [facility] [address] [id number] [address] [place] [address], [place] [address] 13 Feb, 2014 [facility] [address] [id number] [address] [place] [address], [place] [address] 13 Feb, 2014 [facility] [address] [id number] [address] [place] [address], [place] [address] Feb, [facility] [address] [id number] [address] [place] [address], [place] [address] 14 Jan, 2014 [facility] [address] [id number] [address] [place] [address], [place] [address] 14 Jan, 2014 [facility] [address] [id number] [address] [place] [address], [place] [address] 14 Jan, 2014 [facility] [address] [id number] [address] [place] [address], [place] [address] 14 Jan, 2014 [facility] [address] [id number] [address] [place] [address], [place] [address] 22 Dec, 2013 [facility] [address] [id number] [address] [place] [address], [place] [address] 22 Dec, 2013 [facility] [address] [id number] [address] [place] [address], [place] [address] 15 Dec, 2013 [facility] [address] [id number] [address] [place] [address], [place] [address] 15 Dec, 2013 [facility] [address] [id number] [address] [place] [address], [place] [address] Nov, [facility] [address] [id number] [address] [place] [address], [place] [address] Nov, [facility] [address] [id number] [address] [place] [address], [place] [address] Nov, [facility] [address] [id number] [address] [place] [address], [place] [address] Nov, [facility] [address] [id number] [facility] [place] [address] Nov, [facility] [address] [id number] [facility] [place] [address] Nov, [facility] [address] [id number] [facility] [place] [address] Nov, [facility] [address] [id number] [address] [place] [address], [place] [address] Oct, [facility] [address] [id number] [address] [place] [address], [place] [address] Oct, [facility] [address] [id number] [address] [place] [address], [place] [address] Oct, [facility] [address] [id number] [address] [place] [address], [place] [address] Oct, [facility] [address] [id number] [address] [place] [address], [place] [address] Oct, [facility] [address] [id number] [address] [place] [address], [place] [address] Oct, [facility] [address] [id number] [address] [place] [address], [place] [address] Oct, [facility] [address] [id number] [address] [place] [address], [place] [address] Sep, [facility] [address] [id number] [address] [place] [address], [place] [address] Sep, [facility] [address] [id number] [address] [place] [address], [place] [address] Sep, [facility] [address] [id number] [address] [place] [address], [place] [address] Sep, [facility] [address] [id number] [address] [place] [address], [place] [address] Sep, [facility] [address] [id number] [address] [place] [address], [place] [address] Jul, [facility] [address] [id number] [facility] [place] [address] Jul, [facility] [address] [id number] [address] [place] [address], [place] [address] Jul, [facility] [address] [id number] [address] [place] [address], [place] [address] Jul, [facility] [address] [id number] [address] [place] [address], [place] [address] Jul, [facility] [address] [id number] [address] [place] [address], [place] [address] Jul, [facility] [address] [id number] [address] [place] [address], [place] [address] Jul, [facility] [address] [id number] [address] [place] [address], [place] [address] Jul, [facility] [address] [id number] [address] [place] [address], [place] [address] Jul, [facility] [address] [id number] [address] [place] [address], [place] [address] Jul, [facility] [address] [id number] [address] [place] [address], [place] [address] Jul, [facility] [address] [id number] [address] [place] [address], [place] [address] Jul, [facility] [address] [id number] [address] [place] [address], [place] [address] Jun, [facility] [address] [id number] [address] [place] [address], [place] [address] Jun, [facility] [address] [id number] [address] [place] [address], [place] [address] Jun, [facility] [address] [id number] [address] [place] [address], [place] [address] Jun, [facility] [address] [id number] [address] [place] [address], [place] [address] Jun, [facility] [address] [id number] [address] [place] [address], [place] [address] Jun, [facility] [address] [id number] [address] [place] [address], [place] [address] Jun, [facility] [address] [id number] [address] [place] [address], [place] [address] Jun, [facility] [address] [id number] [address] [place] [address], [place] [address] May, [facility] [address] [id number] [address] [place] [address], [place] [address] May, [facility] [address] [id number] [address] [place] [address], [place] [address] May, [facility] [address] [id number] [address] [place] [address], [place] [address] May, [facility] [address] [id number] [address] [place] [address], [place] [address] May, [facility] [address] [id number] [address] [place] [address], [place] [address] May, [facility] [address] [id number] [address] [place] [address], [place] [address] May, [facility] [address] [id number] [address] [place] [address], [place] [address] May, [facility] [address] [id number] [address] [place] [address], [place] [address] Apr, [facility] [address] [id number] [address] [place] [address], [place] [address] Apr, [facility] [address] [id number] [address] [place] [address], [place] [address] Apr, [facility] [address] [id number] [address] [place] [address], [place] [address] Apr, [facility] [address] [id number] [address] [place] [address], [place] [address] Mar, [facility] [address] [id number] [address] [place] [address], [place] [address] Mar, [facility] [address] [id number] [address] [place] [address], [place] [address] Mar, [facility] [address] [id number] [address] [place] [address], [place] [address] Feb, [facility] [address] [id number] [address] [place] [address], [place] [address] Feb, [facility] [address] [id number] [address] [place] [address], [place] [address] Feb, [facility] [address] [id number] [address] [place] [address], [place] [address] Feb, [facility] [address] [id number] [address] [place] [address], [place] [address] Feb, [facility] [address] [id number] [address] [place] [address], [place] [address] Feb, [facility] [address] [id number] [address] [place] [address], [place] [address] Jan, [facility] [address] [id number] [address] [place] [address], [place] [address] Jan, [facility] [address] [id number] [address] [place] [address], [place] [address] Jan, [facility] [address] [id number] [address] [place] [address], [place] [address] Jan, [facility] [address] [id number] [address] [place] [address], [place] [address] Jan, [facility] [address] [id number] [address] [place] [address], [place] [address] Jan, [facility] [address] [id number] [address] [place] [address], [place] [address] 2013 [facility] [address] [id number] [address] [place] [address], [place] [address] 25 Dec, 2012 [facility] [address] [id number] [address] [place] [address], [place] [address] 16 Dec, 2012 [facility] [address] [id number] [address] [place] [address], [place] [address] 10 Dec, 2012 [facility] [address] [id number] [address] [place] [address], [place] [address] 05 Dec, 2012 [facility] [address] [id number] [address] [place] [address], [place] [address] Nov, [facility] [address] [id number] [address] [place] [address], [place] [address] Nov, [facility] [address] [id number] [address] [place] [address], [place] [address] Nov, [facility] [address] [id number] [address] [place] [address], [place] [address] Nov, [facility] [address] [id number] [address] [place] [address], [place] [address] Nov, [facility] [address] [id number] [address] [place] [address], [place] [address] Nov, [facility] [address] [id number] [address] [place] [address], [place] [address] Nov, [facility] [address] [id number] [address] [place] [address], [place] [address] Oct, [facility] [address] [id number] [address] [place] [address], [place] [address] Oct, [facility] [address] [id number] [address] [place] [address], [place] [address] Oct, [facility] [address] [id number] [address] [place] [address], [place] [address] Oct, [facility] [address] [id number] [address] [place] [address], [place] [address] Oct, [facility] [address] [id number] [address] [place] [address], [place] [address] Oct, [facility] [address] [id number] [address] [place] [address], [place] [address] Oct, [facility] [address] [id number] [address] [place] [address], [place] [address] Oct, [facility] [address] [id number] [address] [place] [address], [place] [address] Sep, Suleiman PEREZ [address] [id number] COFFJOSE [place] [id number] August, [facility] [address] [id number] [address] [place] [address], [place] [address] August, [facility] [address] [id number] [address] [place] [address], [place] [address] Jul, [facility] [address] [id number] [address] [place] [address], [place] [address] Jul, [facility] [address] [id number] [address] [place] [address], [place] [address] Jul, [facility] [address] [id number] [address] [place] [address], [place] [address] Jul, [facility] [address] [id number] [address] [place] [address], [place] [address] 18 Jul, 2012 [facility] [address] [id number] [address] [place] [address], [place] [address] 17 Jul, 2012 [facility] [address] [id number] [address] [place] [address], [place] [address] 16 Jul, 2012 [facility] [address] [id number] [address] [place] [address], [place] [address] Jun, [facility] [address] [id number] [address] [place] [address], [place] [address] 18 Jun, 2012 [facility] [address] [id number] [address] [place] [address], [place] [address] 11 Jun, 2012 [facility] [address] [id number] [address] [place] [address], [place] [address] 04 Jun, 2012 [facility] [address] [id number] [address] [place] [address], [place] [address] 04 Jun, 2012 [facility] [address] [id number] [address] [place] [address], [place] [address] 19 May, 2012 [facility] [address] [id number] [address] [place] [address], [place] [address] 18 May, 2012 [facility] [address] [id number] [address] [place] [address], [place] [address] 04 May, 2012 [facility] [address] [id number] [address] [place] [address], [place] [id number] 15 Apr, 2012 [facility] [address] [id number] [address] [place] [address], [place] [address] 14 Apr, 2012 [facility] [address] [id number] [address] [place] [address], [place] [address] 07 Apr, 2012 [facility] [address] [id number] [address] [place] [address], [place] [address] 31 Mar, 2012 [facility] [address] [id number] [address] [place] [address], [place] [address] 31 Mar, 2012 [facility] [address] [id number] [address] [place] [address], [place] [address] 13 Mar, 2012 [facility] [address] [id number] [address] [place] [address], [place] [id number] 13 Mar, 2012 [facility] [address] [id number] [address] [place] [address], [place] [address] 10 Mar, 2012 [facility] [address] [id number] [address] [place] [address], [place] [phone] Mar, [facility] [address] [id number] [address] [place] [address], [place] [id number] Feb, [facility] [address] [id number] [address] [place] [address], [place] [address] Feb, [facility] [address] [id number] [address] [place] [address], [place] [address] Jan, [facility] [address] [id number] [address] [place] [address], [place] [address] Jan, [facility] [address] [id number] [address] [place] [address], [place] [address] Dec, [facility] [address] [id number] [address] [place] [address], [place] [address] Nov, [facility] [address] [id number] [address] [place] [address], [place] [address] Nov, [facility] [address] [id number] [address] [place] [address], [place] [address] Nov, [facility] [address] [id number] [address] [place] [address], [place] [address] Nov, [facility] [address] [id number] [address] [place] [address], [place] [address] Oct, [facility] [address] [id number] [address] [place] [address], [place] [address] Oct, [facility] [address] [id number] [address] [place] [address], [place] [address] Oct, [facility] [address] [id number] [address] [place] [address], [place] [address] Sep, [facility] [address] [id number] [address] [place] [address], [place] [address] Sep, [facility] [address] [id number] [address] [place] [address], [place] [address] Sep, [facility] [address] [id number] [address] [place] [address], [place] [address] August, [facility] [address] [id number] [address] [place] [address], [place] [address] August, [facility] [address] [id number] [address] [place] [address], [place] [address] Jul, [facility] [address] [id number] [address] [place] [address], [place] [address] Jul, [facility] [address] [id number] [address] [place] [address], [place] [address] Jul, [facility] [address] [id number] [address] [place] [address], [place] [address] Jul, [facility] [address] [id number] [address] [place] [address], [place] [address] Jun, [facility] [address] [id number] [address] [place] [address], [place] [address] May, [facility] [address] [id number] [address] [place] [address], [place] [address] Apr, [facility] [address] [id number] [address] [place] [address], [place] [address] Apr, [facility] [address] [id number] [address] [place] [address], [place] [address] Apr, [facility] [address] [id number] [address] [place] [address], [place] [address] Apr, [facility] [address] [id number] [address] [place] [address], [place] [address] Apr, [facility] [address] [id number] [address] [place] [address], [place] [address] Apr, [facility] [address] [id number] [address] [place] [address], [place] [address] Mar, [facility] [address] [id number] [address] [place] [address], [place] [address] Mar, [facility] [address] [id number] [address] [place] [address], [place] [address] 29 Feb, 2011 [facility] [address] [id number] [address] [place] [address], [place] [address] Feb, [facility] [address] [id number] [address] [place] [address], [place] [address] Feb, [facility] [address] [id number] [address] [place] [address], [place] [address] Feb, [facility] [address] [id number] [address] [place] [address], [place] [address] Jan, [facility] [address] [id number] [address] [place] [address], [place] [address] Jan, [facility] [address] [id number] [address] [place] [address], [place] [address] Jan, [facility] [address] [id number] [address] [place] [address], [place] [address] Jan, [facility] [address] [id number] [address] [place] [address], [place] [address] Nov, [facility] [address] [id number] [address] [place] [address], [place] [address] Mar, [facility] [address] [id number] [address] [place] [address], [place] [address] Mar, [facility] [address] [id number] [address] [place] [address], [place] [address] 30 Feb, 2010 [facility] [address] [id number] [address] [place] [address], [place] [id number] 15 Feb, 2010 [facility] [address] [id number] [address] [place] [address], [place] [id number] Jan, [facility] [address] [id number] [address] [place] [address], [place] [id number] Jan, [facility] [address] [id number] [address] [place] [address], [place] [id number] Sep, [facility] [address] [id number] [address] [place] [id number] 16 May, 2009 [facility] [address] [id number] [address] [place] [phone] Apr, [facility] [address] [id number] [address] [place] [id number] Mar, [facility] [address] [id number] [address] [place] [id number] Feb, [facility] [address] [id number] [address] [place] [id number] Feb, [facility] [address] [id number] [address] [place] [id number] Feb, [facility] [address] [id number] [address] [place] [id number] Jan, [facility] [address] [id number] [address] [place] [id number] Jan, [facility] [address] [id number] [address] [place] [id number] Jan, [facility] [address] [id number] [address] [place] [id number] Jan, [facility] [address] [id number] [address] [place] [id number] August, IMMUNIZATIONS No Known Immunizations SOCIAL HISTORY [...] 7 Hospitalization History surgery Hospitalization History [facility], [facility] tie treatment few times for BH
--- OUTSIDE RECORDS SUMMARY | 2019-11-05 07:55 | XMS REPORT ---
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 Active 13533232 Problem Hypertensive retinopathy of both eyes H35.033 Active 7944720 Problem Open-angle glaucoma of both eyes, unspecified glaucoma stage, unspecified open-angle glaucoma type H40.10X0 Acti ve 71034236 Problem Obstructive sleep apnea G47.33 Active 70596220 Problem Type 2 diabetes mellitus with complication E11.8 Active 25618467 Problem Intermittent explosive disorder in adult F63.81 Active 49064079 Problem Bipolar disorder, unspecified F31.9 Active 03913485 Problem Mild intellectual disability F70 A ctive 91649519 Problem Other specified urinary incontinence N39.498 Active 176833373 Problem Diabetes E11.9 Active 42878991 Problem Type 2 diabetes mellitus wit h diabetic neuropathy, unspecified whether usp insulin use E11.40 Active 141982 925981099 Problem Essential hypertension I10 Active 83899264 Problem Reactive airway disease, mild intermittent, uncomplicated J45.20 Active 841853273 Problem Gastroesophageal reflux disease without esophagitis K21.9 Active 848026158 Problem Other diabetic neurological complication associated with type 2 diabetes mellitus E11.49 Active 543588362 Problem Neuropathy G62.9 Active 163837245 ALLERGIES No Information ENCOUNTERS Encounter Location Date Diagnosis [facility] [address] [facility] [id number] [address] [address] Dec, OUTREACH [facility] [id number] [place] [id number] Nov, [facility] [address] [facility] [id number] [address] [place] [address] Oct, [facility] [address] [facility] [id number] [address] [place] [id number] Sep, [facility] [address] [place] [id number] [address] [place] [id number] Sep, [facility] [address] [place] [address] Sep, Essential hypertension I10 [place] [address] [place] [id number] [address] [place] [address] August, Intermittent explosive disor salvatore in adult F63.81 ; Bipolar disorder, unspecified F31.9 and Mild intellectual disability F70 [place] [address] [place] [id number] Jul, Type 2 diabetes mellitus wit h diabetic neuropathy, 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 and Colon cancer screening Z12.11 [place] [address] [place] [address] Jul, Type 2 diabetes mellitus wit h diabetic neuropathy, unspecified whether usp insulin use E11.40 and Tinea pedis, unspecified laterality B35.3 [facility] [address] [place] [address] Jun, [facility] [address] [place] [id number] [address] [place] [id number] Jun, [facility] [address] [place] [id number] [address] [place] [address] Jun, Dysuria R30.0 [facility] [address] [place] [id number] [address] [place] [address] Jun, [facility] [address] [place] [id number] [address] [place] [address] May, Influenza J11.1 [place] [address] [id number] [address] [place] [id number] 13 May, 2019 Intermittent explosive disor salvatore in adult F63.81 [facility] [address] [facility] [id number] [address] [place] [address] 12 May, 2019 [facility] [address] [facility] [id number] [address] [place] [id number] Apr, Intermittent explosive disor salvatore in adult F63.81 ; Bipolar disorder, unspecified F31.9 and Mild intellectual disability F70 [facility] [id number] [place] [phone] Apr, Oral health maintenance stat requiring routine preventive dental care K08.9 [facility] [address] [facility] [id number] [address] [place] [address] Apr, Type 2 diabetes mellitus wit h complication E11.8 ; History of test for hearing Z92.89 ; Colon cancer screening Z12.11 ; Other specified urinary incontinence N39.498 and Impacted cerumen, right ear H61.21 [facility] [address] [facility] [id number] [address] [place] [id number] 10 Apr, 2019 Onychomycosis B35.1 ; Other diabetic neurological complication associated with type 2 diabetes mellitus E11.49 and Tinea pedis of both feet B35.3 [facility] [address] [facility] [id number] [address] [place] [id number] Feb, [facility] [address] [facility] [id number] [address] [place] [address] Jan, [facility] [address] [facility] [id number] [address] [place] [phone] Jan, [facility] [address] [facility] [id number] [address] [place] [address] Jan, [facility] [address] [facility] [id number] [address] [place] [id number] Jan, [facility] [address] [facility] [id number] [address] [place] [id number] Jan, [facility] [address] [facility] [id number] [address] [place] [address] Jan, [facility] [address] [facility] [id number] [address] [place] [address] Jan, [facility] [address] [facility] [id number] [address] [place] [id number] 07 Jan, 2019 Anemia D64.9 [facility] [address] [facility] [id number] [place] [phone] 04 Jan, 2019 Dental examination Z01.20 an d Oral health maintenance status requiring routine preventive dental care K08.9 [facility] [address] [facility] [id number] [address] [place] [id number] Jan, Onychomycosis B35.1 and Othe r diabetic neurological complication associated with type 2 diabetes mellitus E11.49 [place] [address] [facility] [id number] [address] [place] [id number] Jan, Anemia D64.9 [facility] [address] [facility] [id number] [address] [place] [id number] Jan, [facility] [address] [facility] [id number] [address] [place] [address] Dec, Urinary tract infection with out hematuria, site unspecified N39.0 [place] [address] [facility] [id number] [address] [place] [address] Dec, Type 2 diabetes mellitus wit h complication E11.8 ; Urinary tract infection without hematuria, site unspecified N39.0 ; Impacted cerumen of both ears H61.23 ; Encounter for immunization Z23 and Hyponatremia E87.1 [facility] [address] [facility] [id number] [address] [place] [address] Dec, Intermittent explosive disor salvatore in adult F63.81 ; Dysuria R30.0 ; Type 2 diabetes mellitus with complication E11.8 ; Bipolar disorder, unspecified F31.9 and Mild intellectual disability F70 [facility] [address] [facility] [id number] [address] [place] [address] Dec, Dysuria R30.0 [facility] [address] [facility] [id number] [address] [place] [id number] Dec, Intermittent explosive disor salvatore in adult F63.81 ; Bipolar disorder, unspecified F31.9 and Mild intellectual disability F70 [facility] [address] [facility] [id number] [address] [place] [id number] Nov, [facility] [address] [facility] [id number] [address] [place] [id number] Oct, [facility] [address] [facility] [id number] [place] [id number] Oct, Oral health maintenance stat us requiring routine preventive dental care K08.9 [facility] [address] [facility] [id number] [address] [place] [address] August, Intermittent explosive disor salvatore in adult F63.81 ; Bipolar disorder, unspecified F31.9 and Mild intellectual disability F70 [facility] [address] [id number] [address] [place] [id number] August, Dental caries K02.9 [facility] [address] [facility] [id number] [address] [place] [id number] Jul, Onychomycosis B35.1 ; Other diabetic neurological complication associated with type 2 diabetes mellitus E11.49 and Tinea pedis of both feet B35.3 [facility] [address] [id number] [address] [place] [address] [id number] Jul, Caries K02.9 [facility] [address] [facility] [id number] [address] [place] [address] Jul, Type 2 diabetes mellitus wit h complication E11.8 ; Tobacco abuse Z72.0 and Bipolar disorder, unspecified F31.9 [facility] [address] [facility] [id number] [address] [place] [id number] Jun, [facility] [address] [facility] [id number] [address] [place] [id number] Jun, Dental examination Z01.20 an d Oral health maintenance status requiring routine preventive dental care K08.9 [facility] [address] [place] [id number] [address] [place] [id number] 11 May, 2018 Bilateral impacted cerumen H 61.23 [place] [address] [place] [id number] [address] [place] [address] Apr, Bipolar disorder, unspecifie d F31.9 ; Intermittent explosive disorder in adult F63.81 ; Type 2 diabetes mellitus with complication E11.8 ; Tobacco abuse Z72.0 and Colon cancer screening Z12.11 [place] [address] [place] [address] Apr, Onychomycosis B35.1 and Othe r diabetic neurological complication associated with type 2 diabetes mellitus E11.49 [place] [address] [place] [address] Apr, Intermittent explosive disor salvatore in adult F63.81 ; Bipolar disorder, unspecified F31.9 and Mild intellectual disability F70 [place] [address] [place] [id number] [address] [place] [id number] Mar, Diabetes E11.9 [facility] [address] [place] [id number] Jan, Encounter for immunization Z 23 [place] [address] [place] [id number] Jan, Tinea pedis of both feet B35 .3 ; Other diabetic neurological complication associated with type 2 diabetes mellitus E11.49 and Onychomycosis B35.1 [place] [address] [place] [id number] [address] [place] [id number] Nov, Type 2 diabetes mellitus wit h complication E11.8 [place] [address] [place] [id number] [address] [place] [id number] Nov, [facility] [address] [facility] [id number] [address] [place] [id number] Oct, Intermittent explosive disor salvatore in adult F63.81 ; Bipolar disorder, unspecified F31.9 and Mild intellectual disability F70 [facility] [address] [facility] [id number] [address] [place] [address] Oct, [facility] [address] [id number] [address] [place] [address] [id number] Oct, Dental examination Z01.20 [facility] [address] [facility] [id number] [address] [place] [id number] Oct, Onychomycosis B35.1 and Othe r diabetic neurological complication associated with type 2 diabetes mellitus E11.49 [place] [address] [facility] [id number] [address] [place] [id number] Sep, Type 2 diabetes mellitus wit h complication E11.8 and Colon cancer screening Z12.11 [facility] [address] [facility] [id number] [address] [place] [id number] 18 Sep, 2017 Type 2 diabetes mellitus wit h complication E11.8 ; Colon cancer screening Z12.11 and Neuropathy G62.9 [facility] [address] [facility] [id number] [address] [place] [address] August, Diabetes E11.9 [facility] [address] [id number] [address] [place] [address] [id number] Jul, Dental examination Z01.20 [facility] [address] [facility] [id number] [address] [place] [id number] 27 May, 2017 Mild intellectual disability F70 [facility] [address] [facility] [id number] [address] [place] [id number] 07 May, 2017 Mild intellectual disability F70 ; High risk medication use Z79.899 ; Intermittent explosive disorder in adult F63.81 and Bipolar disorder, unspecified F31.9 [facility] [address] [facility] [id number] [address] [place] [id number] May, [facility] [address] [id number] [address] [place] [id number] May, [facility] [address] [id number] [address] [place] [id number] Apr, Type 2 diabetes mellitus wit h complication E11.8 ; Mild intellectual disability F70 ; Gastroesophageal reflux disease without esophagitis K21.9 ; Reactive airway disease, mild intermittent, uncomplicated J45.20 and Tobacco abuse Z72.0 [facility] [address] [id number] [address] [place] [id number] Apr, High risk medication use Z79 .899 ; Mild intellectual disability F70 ; Intermittent explosive disorder in adult F63.81 and Bipolar disorder, unspecified F31.9 [facility] [address] [id number] [address] [place] [address] [id number] Mar, Encounter for dental exam an d cleaning w/o abnormal findings Z01.20 [facility] [address] [id number] [address] [place] [address] [id number] Mar, Dental examination Z01.20 [facility] [address] [id number] [address] [place] [id number] 12 Jan, 2017 [facility] [address] [id number] [address] [place] [phone] Jan, [facility] [address] [id number] [address] [place] [id number] Jan, Mild intellectual disability F70 ; Bipolar disorder, unspecified F31.9 and Intermittent explosive disorder in adult F63.81 [facility] [address] [id number] [address] [place] [id number] 02 Jan, 2017 Diabetes E11.9 [facility] [address] [id number] [address] [place] [address] [id number] 13 Dec, 2016 Encounter for dental examina tion and cleaning without abnormal findings Z01.20 [facility] [address] [id number] [address] [place] [id number] Dec, Bipolar disorder, unspecifie d F31.9 ; Intermittent explosive disorder in adult F63.81 and Mild intellectual disability F70 [facility] [address] [id number] [address] [place] [phone] Nov, Diabetes E11.9 [facility] [address] [id number] [address] [place] [id number] Nov, [facility] [address] [id number] [address] [place] [id number] Nov, Diabetes E11.9 and Colon can cer screening Z12.11 [facility] [address] [id number] [id number] Sep, Dental examination Z01.20 [facility] [address] [id number] [address] [place] [address] [id number] Sep, Encounter for dental examina tion and cleaning without abnormal findings Z01.20 [facility] [address] [id number] [address] [place] [phone] Sep, Bipolar disorder, unspecifie d F31.9 [facility] [address] [id number] [address] [place] [id number] Sep, Bipolar disorder, unspecifie d F31.9 [facility] [address] [id number] [address] [place] [id number] Jul, [facility] [address] [id number] [address] [place] [id number] Jul, Type 2 diabetes mellitus wit h complication E11.8 [facility] [address] [id number] [address] [place] [address] [id number] Jun, Encounter for dental examina tion and cleaning without abnormal findings Z01.20 [facility] [address] [id number] [id number] 15 Jun, 2016 Dental examination Z01.20 [facility] [address] [id number] [address] [place] [id number] 18 Apr, 2016 Sports physical Z02.5 [facility] [address] [id number] [address] [place] [id number] 14 Mar, 2016 Bipolar disorder, in partial remission, most recent episode manic F31.73 and Intermittent explosive disorder in adult F63.81 [facility] [address] [id number] [address] [place] [id number] 08 Mar, 2016 [facility] [address] [id number] [address] [place] [id number] 06 Mar, 2016 Diabetes E11.9 [facility] [id number] [place] [address] [id number] Feb, Encounter for dental examina tion and cleaning without abnormal findings Z01.20 [facility] [address] [id number] [address] [place] [id number] 22 Dec, 2015 Nocturnal hypoxemia G47.34 a nd Encounter for immunization Z23 [facility] [address] [id number] [address] [place] [id number] 15 Dec, 2015 [facility] [address] [id number] [address] [place] [id number] Dec, [facility] [address] [id number] [address] [place] [id number] Dec, Bipolar disorder, unspecifie d F31.9 [facility] [address] [id number] [address] [place] [address] [id number] Oct, Encounter for dental examina tion and cleaning without abnormal findings Z01.20 [facility] [address] [id number] [id number] Oct, Dental examination Z01.20 [facility] [address] [id number] [address] [place] [id number] Oct, Diabetes E11.9 [facility] [address] [id number] [address] [place] [id number] 05 Alexis, 2016 Diabetes E11.9 ; Reactive ai rway disease, mild intermittent, uncomplicated J45.20 and Tobacco abuse Z72.0 [place] [address] [id number] Sep, Bipolar disorder, unspecifie d F31.9 and Depression F32.9 [place] [address] [address] Sep, [place] [address] [address] August, Tinea pedis of both feet B35 .3 and DM w/o complication type II, uncontrolled E11.65 [place] [address] [address] Jul, [place] [address] [address] Jul, [place] [address] [id number] Jul, Obstructive sleep apnea G47. 33 [place] [address] [id number] Jun, Diabetes E11.9 [place] [address] [address] Jun, [place] [address] [address] Jun, [place] [address] [address] Jun, Bipolar disorder, unspecifie d F31.9 and Mental retardation F79 [place] [address] [address] Apr, [place] [address] [address] Feb, Diabetes E11.9 ; Encounter f or immunization Z23 ; Cough R05 and Nicotine abuse Z72.0 [place] [address] [place] [id number] [address] [place] [id number] Jan, Bipolar disorder, unspecifie d F31.9 and Diabetes mellitus without mention of complication, type II or unspecified type, uncontrolled 250.02 [facility] [address] [place] [id number] [address] [place] [id number] Jan, [place] [address] [place] [id number] [place] [address] Dec, Reactive airway disease 493. 90 and Enuresis 788.30 [place] [address] [place] [id number] [place] [phone] Dec, [place] [address] [place] [id number] [place] [phone] Nov, [place] [address] [address] Nov, [place] [address] [address] Nov, Annual physical exam V70.0 ; Urinary incontinence 788.30 ; Diabetes 250.00 and Hypertension 401.9 [place] [address] [place] [id number] [address] [place] [id number] Oct, Diabetes mellitus without me ntion of complication, type II or unspecified type, uncontrolled 250.02 [place] [address] [place] [id number] [address] [place] [id number] Oct, Diabetes mellitus without me ntion of complication, type II or unspecified type, uncontrolled 250.02 [facility] [address] [place] [id number] [address] [place] [id number] Oct, Diabetes mellitus without me ntion of complication, type II or unspecified type, uncontrolled 250.02 [facility] [address] [place] [id number] [address] [place] [id number] Oct, [facility] [address] [place] [id number] [place] [id number] Oct, [facility] [address] [id number] [address] [place] [id number] Oct, Bipolar disorder, unspecifie d 296.80 [facility] [address] [id number] [address] [place] [address] [id number] Sep, Dental examination V72.2 [facility] [address] [id number] [address] [place] [id number] August, [facility] [address] [id number] [address] [place] [address] [id number] August, Dental examination V72.2 [facility] [address] [id number] [address] [place] [id number] August, [facility] [address] [id number] [address] [place] [id number] Jul, [facility] [address] [id number] [address] [place] [id number] Jul, [facility] [address] [id number] [address] [place] [id number] Jun, [facility] [address] [id number] [address] [place] [phone] Jun, [facility] [address] [id number] [address] [place] [phone] Jun, [facility] [address] [id number] [address] [place] [phone] Jun, [facility] [address] [id number] [address] [place] [phone] May, [facility] [address] [id number] [address] [place] [phone] May, [facility] [address] [id number] [address] [place] [phone] May, [facility] [address] [id number] [address] [place] [id number] 16 May, 2014 [facility] [address] [id number] [address] [place] [address], [place] [phone] 16 May, 2014 [facility] [address] [id number] [address] [place] [address], [place] [phone] 16 May, 2014 [facility] [facility] [address] [id number] [address] [place] [address], [place] [address] 16 May, 2014 [facility] [address] [id number] [address] [place] [address], [place] [address] 16 May, 2014 [facility] [address] [id number] [address] [place] [address], [place] [address] May, 2014 [facility] [address] [id number] [address] [place] [address], [place] [address] 16 May, 2014 [facility] [address] [id number] [address] [place] [address], [place] [address] 16 May, 2014 [facility] [address] [id number] [address] [place] [address], [place] [address] May, 2014 [facility] [address] [id number] [address] [place] [address], [place] [address] May, 2014 [facility] [address] [id number] [address] [place] [address], [place] [address] 16 May, 2014 [facility] [address] [id number] [address] [place] [address], [place] [address] May, 2014 [facility] [address] [id number] [address] [place] [address], [place] [address] Apr, [facility] [address] [id number] [address] [place] [address], [place] [address] Apr, [facility] [address] [id number] [address] [place] [address], [place] [address] Apr, [facility] [address] [id number] [address] [place] [address] Apr, [facility] [address] [id number] [address] [place] [address], [place] [address] Apr, [facility] [address] [id number] [address] [place] [address], [place] [address] Apr, [facility] [address] [id number] [address] [place] [address], [place] [address] Apr, [facility] [address] [id number] [address] [place] [address], [place] [address] Apr, [facility] [address] [id number] [address] [place] [address], [place] [address] Apr, [facility] [address] [id number] [address] [place] [address], [place] [address] Apr, [facility] [address] [id number] [address] [place] [address], [place] [address] Apr, [facility] [address] [id number] [address] [place] [address], [place] [address] Apr, [facility] [address] [id number] [address] [place] [address], [place] [address] Mar, [facility] [address] [id number] [address] [place] [address], [place] [address] Mar, [facility] [address] [id number] [address] [place] [address], [place] [address] Mar, [facility] [address] [id number] [address] [place] [address], [place] [address] Mar, [facility] [address] [id number] [address] [place] [address], [place] [address] Mar, [facility] [address] [id number] [address] [place] [address], [place] [address] Mar, [facility] [address] [id number] [address] [place] [address], [place] [address] 13 Feb, 2014 [facility] [address] [id number] [address] [place] [address] Feb, [facility] [address] [id number] [address] [place] [address], [place] [address] Feb, [facility] [address] [id number] [address] [place] [address], [place] [address] Feb, [facility] [address] [id number] [address] [place] [address], [place] [address] 14 Jan, 2014 [facility] [address] [id number] [address] [place] [address], [place] [address] 14 Jan, 2014 [facility] [address] [id number] [address] [place] [address], [place] [address] 14 Jan, 2014 [facility] [address] [id number] [address] [place] [address], [place] [address] 14 Jan, 2014 [facility] [address] [id number] [address] [place] [address], [place] [address] 22 Dec, 2013 [facility] [address] [id number] [address] [place] [address], [place] [address] 22 Dec, 2013 [facility] [address] [id number] [address] [place] [address], [place] [address] 15 Dec, 2013 [facility] [address] [id number] [address] [place] [address], [place] [address] 15 Dec, 2013 [facility] [address] [id number] [address] [place] [address], [place] [address] Nov, [facility] [address] [id number] [address] [place] [address], [place] [address] Nov, [facility] [address] [id number] [address] [place] [address], [place] [address] Nov, [facility] [address] [id number] [address] [place] [address], [place] [address] Nov, [facility] [address] [id number] [address] [place] [address], [place] [address] Nov, [facility] [address] [id number] [facility] [place] [address] Nov, [facility] [address] [id number] [facility] [place] [address] Nov, [facility] [address] [id number] [address] [place] [address], [place] [address] Oct, [facility] [address] [id number] [address] [place] [address], [place] [address] Oct, [facility] [address] [id number] [address] [place] [address], [place] [address] Oct, [facility] [address] [id number] [address] [place] [address], [place] [address] Oct, [facility] [address] [id number] [address] [place] [address], [place] [address] Oct, [facility] [address] [id number] [address] [place] [address], [place] [address] Oct, [facility] [address] [id number] [address] [place] [address], [place] [address] Oct, [facility] [address] [id number] [address] [place] [address], [place] [address] Sep, [facility] [address] [id number] [address] [place] [address], [place] [address] Sep, [facility] [address] [id number] [address] [place] [address], [place] [address] Sep, [facility] [address] [id number] [address] [place] [address], [place] [address] Sep, [facility] [address] [id number] [address] [place] [address], [place] [address] Sep, [facility] [address] [id number] [address] [place] [address], [place] [address] Jul, [facility] [address] [id number] [address] [place] [address], [place] [address] Jul, [facility] [address] [id number] [facility] [place] [address] Jul, [facility] [address] [id number] [facility] [place] [address] Jul, [facility] [address] [id number] [address] [place] [address], [place] [address] Jul, [facility] [address] [id number] [address] [place] [address], [place] [address] Jul, [facility] [address] [id number] [address] [place] [address], [place] [address] Jul, [facility] [address] [id number] [address] [place] [address], [place] [address] Jul, [facility] [address] [id number] [address] [place] [address], [place] [address] Jul, [facility] [address] [id number] [address] [place] [address], [place] [address] Jul, [facility] [address] [id number] [address] [place] [address], [place] [address] Jul, [facility] [address] [id number] [address] [place] [address], [place] [address] Jul, [facility] [address] [id number] [address] [place] [address], [place] [address] Jun, [facility] [address] [id number] [address] [place] [address], [place] [address] Jun, [facility] [address] [id number] [address] [place] [address], [place] [address] Jun, [facility] [address] [id number] [address] [place] [address], [place] [address] Jun, [facility] [address] [id number] [address] [place] [address], [place] [address] Jun, [facility] [address] [id number] [address] [place] [address], [place] [address] Jun, [facility] [address] [id number] [address] [place] [address], [place] [address] Jun, [facility] [address] [id number] [address] [place] [address], [place] [address] Jun, [facility] [address] [id number] [address] [place] [address], [place] [address] May, [facility] [address] [id number] [address] [place] [address], [place] [address] May, [facility] [address] [id number] [address] [place] [address], [place] [address] May, [facility] [address] [id number] [address] [place] [address], [place] [address] May, [facility] [address] [id number] [address] [place] [address], [place] [address] May, [facility] [address] [id number] [address] [place] [address], [place] [address] May, [facility] [address] [id number] [address] [place] [address], [place] [address] May, [facility] [address] [id number] [address] [place] [address], [place] [address] May, [facility] [address] [id number] [address] [place] [address], [place] [address] Apr, [facility] [address] [id number] [address] [place] [address], [place] [address] Apr, [facility] [address] [id number] [address] [place] [address], [place] [address] Apr, [facility] [address] [id number] [address] [place] [address], [place] [address] Apr, [facility] [address] [id number] [address] [place], [place] [address] [address] Mar, [facility] [address] [id number] [address] [place] [address], [place] [address] Mar, [facility] [address] [id number] [address] [place] [address], [place] [address] Mar, [facility] [address] [id number] [address] [place] [address], [place] [address] Feb, [facility] [address] [id number] [address] [place] [address], [place] [address] Feb, [facility] [address] [id number] [address] [place] [address], [place] [address] Feb, [facility] [address] [id number] [address] [place] [address], [place] [address] Feb, [facility] [address] [id number] [address] [place] [address], [place] [address] Feb, [facility] [address] [id number] [address] [place] [address], [place] [address] Feb, [facility] [address] [id number] [address] [place] [address], [place] [address] Jan, [facility] [address] [id number] [address] [place] [address], [place] [address] Jan, [facility] [address] [id number] [address] [place] [address], [place] [address] Jan, [facility] [address] [id number] [address] [place] [address] Jan, [facility] [address] [id number] [address] [place] [address], [place] [address] Jan, [facility] [address] [id number] [address] [place] [address], [place] [address] Jan, [facility] [address] [id number] [address] [place] [address] Jan, [facility] [address] [id number] [facility] [place] [address] 25 Dec, 2012 [facility] [address] [id number] [address] [place] [address], [place] [address] 16 Dec, 2012 [facility] [address] [id number] [address] [place] [address], [place] [address] Dec, [facility] [address] [id number] [address] [place] [address], [place] [address] 05 Dec, 2012 [facility] [address] [id number] [address] [place] [address], [place] [address] Nov, [facility] [address] [id number] [address] [place] [address], [place] [address] Nov, [facility] [address] [id number] [address] [place] [address], [place] [address] Nov, [facility] [address] [id number] [address] [place] [address], [place] [address] Nov, [facility] [address] [id number] [address] [place] [address], [place] [address] Nov, [facility] [address] [id number] [address] [place] [address], [place] [address] Nov, [facility] [address] [id number] [address] [place] [address], [place] [address] Nov, [facility] [address] [id number] [address] [place] [address], [place] [address] Oct, [facility] [address] [id number] [address] [place] [address], [place] [address] Oct, [facility] [address] [id number] [address] [place] [address], [place] [address] Oct, [facility] [address] [id number] [address] [place] [address], [place] [address] Oct, [facility] [address] [id number] [address] [place] [address], [place] [address] Oct, [facility] [address] [id number] [address] [place] [address], [place] [address] Oct, [facility] [address] [id number] [address] [place] [address], [place] [address] Oct, [facility] [address] [id number] [address] [place] [address], [place] [address] Oct, [facility] [address] [id number] [address] [place] [address], [place] [address] Sep, [facility] [address] [id number] [place] [id number] August, [facility] [address] [id number] [address] [place] [address], [place] [address] August, [facility] [address] [id number] [address] [place] [address], [place] [address] Jul, [facility] [address] [id number] [address] [place] [address], [place] [address] Jul, [facility] [address] [id number] [address] [place] [address], [place] [address] Jul, [facility] [address] [id number] [address] [place] [address], [place] [address] Jul, [facility] [address] [id number] [address] [place] [address], [place] [address] Jul, [facility] [address] [id number] [address] [place] [address], [place] [address] 17 Jul, 2012 [facility] [address] [id number] [address] [place] [address], [place] [address] 16 Jul, 2012 [facility] [address] [id number] [address] [place] [address], [place] [address] Jun, [facility] [address] [id number] [address] [place] [address], [place] [address] Jun, [facility] [address] [id number] [address] [place] [address], [place] [address] 11 Jun, 2012 [facility] [address] [id number] [address] [place] [address], [place] [address] 04 Jun, 2012 [facility] [address] [id number] [address] [place] [address], [place] [address] 04 Jun, 2012 [facility] [address] [id number] [address] [place] [address], [place] [address] 19 May, 2012 [facility] [address] [id number] [address] [place] [address], [place] [address] 18 May, 2012 [facility] [address] [id number] [address] [place] [address], [place] [address] 04 May, 2012 [facility] [address] [id number] [address] [place] [address], [place] [address] 15 Apr, 2012 [facility] [address] [id number] [address] [place] [address], [place] [address] 14 Apr, 2012 [facility] [address] [id number] [address] [place] [address], [place] [address] 07 Apr, 2012 [facility] [address] [id number] [address] [place] [address], [place] [address] 31 Mar, 2012 [facility] [address] [id number] [address] [place] [address], [place] [address] 31 Mar, 2012 [facility] [address] [id number] [address] [place] [address], [place] [address] Mar, [facility] [address] [id number] [address] [place] [address], [place] [address] Mar, [facility] [address] [id number] [address] [place] [address], [place] [address] 10 Mar, 2012 [facility] [address] [id number] [address] [place] [address], [place] [address] 10 Mar, 2012 [facility] [address] [id number] [address] [place] [address], [place] [address] 02 Feb, 2012 [facility] [address] [id number] [address] [place] [address], [place] [address] Feb, [facility] [address] [id number] [address] [place] [address], [place] [address] Jan, [facility] [address] [id number] [address] [place] [address], [place] [address] Jan, [facility] [address] [id number] [address] [place] [address], [place] [address] Dec, [facility] [address] [id number] [address] [place] [address], [place] [address] Nov, [facility] [address] [id number] [address] [place] [address], [place] [address] Nov, [facility] [address] [id number] [address] [place] [address], [place] [address] Nov, [facility] [address] [id number] [address] [place] [address], [place] [address] Nov, [facility] [address] [id number] [address] [place] [address], [place] [address] Oct, [facility] [address] [id number] [address] [place] [address], [place] [address] Oct, [facility] [address] [id number] [address] [place] [address], [place] [address] Oct, [facility] [address] [id number] [address] [place] [address], [place] [address] Sep, [facility] [address] [id number] [address] [place] [address], [place] [address] Sep, [facility] [address] [id number] [address] [place] [address], [place] [address] Sep, [facility] [address] [id number] [address] [place] [address], [place] [address] August, [facility] [address] [id number] [address] [place] [address], [place] [address] August, [facility] [address] [id number] [address] [place] [address], [place] [address] Jul, [facility] [address] [id number] [address] [place] [address], [place] [address] Jul, [facility] [address] [id number] [address] [place] [address], [place] [address] Jul, [facility] [address] [id number] [address] [place] [address], [place] [address] Jul, [facility] [address] [id number] [address] [place] [address], [place] [address] Jun, [facility] [address] [id number] [address] [place] [address], [place] [address] May, [facility] [address] [id number] [address] [place] [address], [place] [address] Apr, [facility] [address] [id number] [address] [place] [address], [place] [address] Apr, [facility] [address] [id number] [address] [place] [address], [place] [address] Apr, [facility] [address] [id number] [address] [place] [address], [place] [address] Apr, [facility] [address] [id number] [address] [place] [address], [place] [address] Apr, [facility] [address] [id number] [address] [place] [address], [place] [address] Apr, [facility] [address] [id number] [address] [place] [address], [place] [address] Mar, [facility] [address] [id number] [address] [place] [address], [place] [address] Mar, [facility] [address] [id number] [address] [place] [address], [place] [address] Feb, [facility] [address] [id number] [address] [place] [address], [place] [address] 18 Feb, 2011 [facility] [address] [id number] [address] [place] [address], [place] [address] 17 Feb, 2011 [facility] [address] [id number] [address] [place] [address], [place] [address] 09 Feb, 2011 [facility] [address] [id number] [address] [place] [address], [place] [address] Jan, [facility] [address] [id number] [address] [place] [address], [place] [address] 18 Jan, 2011 [facility] [address] [id number] [address] [place] [address], [place] [address] Jan, [facility] [address] [id number] [address] [place] [address], [place] [address] Jan, [facility] [address] [id number] [address] [place] [address], [place] [address] Nov, [facility] [address] [id number] [address] [place] [address], [place] [address] Mar, [facility] [address] [id number] [address] [place] [address], [place] [address] Mar, [facility] [address] [id number] [address] [place] [address], [place] [address] 30 Feb, 2010 [facility] [address] [id number] [address] [place] [address], [place] [address] 15 Feb, 2010 [facility] [address] [id number] [address] [place] [address], [place] [address] Jan, [facility] [address] [id number] [address] [place] [address], [place] [address] Jan, [facility] [address] [id number] [address] [place] [address], [place] [address] 15 Sep, 2009 [facility] [address] [id number] [address] [place] [id number] 16 May, 2009 [facility] [address] [id number] [address] [place] [phone] Apr, [facility] [address] [id number] [address] [place] [phone] Mar, [facility] [address] [id number] [address] [place] [phone] Feb, [facility] [address] [id number] [address] [place] [id number] Feb, [facility] [address] [id number] [address] [place] [phone] Feb, [facility] [address] [id number] [address] [place] [phone] Jan, [facility] [address] [id number] [address] [place] [phone] Jan, [facility] [address] [id number] [address] [place] [phone] Jan, [facility] [address] [id number] [address] [place] [phone] Jan, [facility] [address] [id number] [address] [place] [id number] August, IMMUNIZATIONS No Known Immunizations SOCIAL HISTORY [...] age 6 Hospitalization History surgery Hospitalization History [facility], inva tient treatment few times for BH
--- OUTSIDE RECORDS SUMMARY | 2019-11-05 07:55 | XMS REPORT ---
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 Active 63694721 Problem Hypertensive retinopathy of both eyes H35.033 Active 9732825 Problem Open-angle glaucoma of both eyes, unspecified glaucoma stage, unspecified open-angle glaucoma type H40.10X0 Acti ve 68738798 Problem Obstructive sleep apnea G47.33 Active 32118208 Problem Type 2 diabetes mellitus with complication E11.8 Active 79436599 Problem Intermittent explosive disorder in adult F63.81 Active 95757267 Problem Bipolar disorder, unspecified F31.9 Active 02651259 Problem Mild intellectual disability F70 A ctive 09083054 Problem Other specified urinary incontinence N39.498 Active 126431005 Problem Diabetes E11.9 Active 00730603 Problem Type 2 diabetes mellitus wit h diabetic neuropathy, unspecified whether skilled nursing insulin use E11.40 Active 075818 286235293 Problem Essential hypertension I10 Active 19803503 Problem Reactive airway disease, mild intermittent, uncomplicated J45.20 Active 357675149 Problem Gastroesophageal reflux disease without esophagitis K21.9 Active 289757777 Problem Other diabetic neurological complication associated with type 2 diabetes mellitus E11.49 Active 914146910 Problem Neuropathy G62.9 Active 065454320 ALLERGIES No Information ENCOUNTERS Encounter Location Date Diagnosis [facility] [address] [id number] [address] [place] [id number] Dec, [facility] [address] [id number] [address] [place] [id number] Oct, [facility] [address] [place] [id number] [address] [place] [id number] Sep, [facility] [address] [id number] Sep, [facility] [address] [address] 03 Sep, 2019 Essential hypertension I10 [place] [address] [id number] August, Intermittent explosive disor salvatore in adult F63.81 ; Bipolar disorder, unspecified F31.9 and Mild intellectual disability F70 [place] [address] [address] Jul, Type 2 diabetes mellitus wit h diabetic neuropathy, unspecified whether rodent exterminator insulin use E11.40 and Colon cancer screening Z12.11 [place] [address] [address] Jul, Type 2 diabetes mellitus wit h diabetic neuropathy, unspecified whether rodent exterminator insulin use E11.40 and Tinea pedis, unspecified laterality B35.3 [place] [address] [address] Jun, [place] [address] [address] Jun, [facility] [address] [id number] 04 Jun, 2019 Dysuria R30.0 [place] [address] [id number] Jun, [place] [address] [address] May, Influenza J11.1 [place] [address] [id number] 13 May, 2019 Intermittent explosive disor salvatore in adult F63.81 [facility] [address] [id number] [address] [place] [id number] May, [facility] [address] [id number] [address] [place] [id number] Apr, Intermittent explosive disor salvatore in adult F63.81 ; Bipolar disorder, unspecified F31.9 and Mild intellectual disability F70 [facility] [id number] [place] [id number] Apr, Oral health maintenance stat us requiring routine preventive dental care K08.9 [facility] [address] [id number] [address] [place] [id number] Apr, Type 2 diabetes mellitus wit h complication E11.8 ; History of test for hearing Z92.89 ; Colon cancer screening Z12.11 ; Other specified urinary incontinence N39.498 and Impacted cerumen, right ear H61.21 [facility] [address] [id number] [address] [place] [id number] Apr, Onychomycosis B35.1 ; Other diabetic neurological complication associated with type 2 diabetes mellitus E11.49 and Tinea pedis of both feet B35.3 [facility] [address] [id number] [address] [place] [id number] Feb, [facility] [address] [id number] [address] [place] [id number] Jan, [facility] [address] [id number] [address] [place] [id number] Jan, [facility] [address] [id number] [address] [place] [id number] Jan, [facility] [address] [id number] [address] [place] [id number] Jan, [facility] [address] [id number] [address] [place] [phone] Jan, [facility] [address] [id number] [address] [place] [phone] Jan, [facility] [address] [id number] [address] [place] [id number] Jan, [facility] [address] [id number] [address] [place] [id number] 07 Jan, 2019 Anemia D64.9 [facility] [id number] [place] [id number] Jan, Dental examination Z01.20 an d Oral health maintenance status requiring routine preventive dental care K08.9 [facility] [address] [id number] [address] [place] [id number] Jan, Onychomycosis B35.1 and Othe r diabetic neurological complication associated with type 2 diabetes mellitus E11.49 [facility] [address] [id number] [address] [place] [id number] Jan, Anemia D64.9 [facility] [address] [id number] [address] [place] [id number] Jan, [facility] [address] [id number] [address] [place] [id number] Dec, Urinary tract infection with out hematuria, site unspecified N39.0 [facility] [address] [id number] [address] [place] [id number] Dec, Type 2 diabetes mellitus wit h complication E11.8 ; Urinary tract infection without hematuria, site unspecified N39.0 ; Impacted cerumen of both ears H61.23 ; Encounter for immunization Z23 and Hyponatremia E87.1 [facility] [address] [id number] [address] [place] [id number] Dec, Intermittent explosive disor salvatore in adult F63.81 ; Dysuria R30.0 ; Type 2 diabetes mellitus with complication E11.8 ; Bipolar disorder, unspecified F31.9 and Mild intellectual disability F70 [facility] [address] [place] [id number] [address] [place] [id number] Dec, Dysuria R30.0 [facility] [address] [id number] [address] [place] [id number] Dec, Intermittent explosive disor salvatore in adult F63.81 ; Bipolar disorder, unspecified F31.9 and Mild intellectual disability F70 [facility] [address] [id number] [address] [place] [id number] Nov, [facility] [address] [id number] [address] [place] [id number] Oct, [facility] [address] [facility] [id number] [place] [id number] Oct, Oral health maintenance stat us requiring routine preventive dental care K08.9 [facility] [address] [id number] [address] [place] [id number] August, Intermittent explosive disor salvatore in adult F63.81 ; Bipolar disorder, unspecified F31.9 and Mild intellectual disability F70 [facility] [address] [id number] [address] [place] [address] [id number] August, Dental caries K02.9 [facility] [address] [id number] [address] [place] [id number] Jul, Onychomycosis B35.1 ; Other diabetic neurological complication associated with type 2 diabetes mellitus E11.49 and Tinea pedis of both feet B35.3 [facility] [address] [id number] [address] [place] [address] [id number] Jul, Caries K02.9 [facility] [address] [id number] [address] [place] [id number] Jul, Type 2 diabetes mellitus wit h complication E11.8 ; Tobacco abuse Z72.0 and Bipolar disorder, unspecified F31.9 [facility] [address] [id number] [address] [place] [id number] Jun, [facility] [address] [id number] [address] [place] [address] [id number] Jun, Dental examination Z01.20 an d Oral health maintenance status requiring routine preventive dental care K08.9 [facility] [address] [id number] [address] [place] [id number] 11 May, 2018 Bilateral impacted cerumen H 61.23 [facility] [address] [id number] [address] [place] [id number] Apr, Bipolar disorder, unspecifie d F31.9 ; Intermittent explosive disorder in adult F63.81 ; Type 2 diabetes mellitus with complication E11.8 ; Tobacco abuse Z72.0 and Colon cancer screening Z12.11 [place] [address] [place] [id number] [address] [place] [id number] Apr, Onychomycosis B35.1 and Othe r diabetic neurological complication associated with type 2 diabetes mellitus E11.49 [place] [address] [place] [id number] [address] [place] [id number] Apr, Intermittent explosive disor salvatore in adult F63.81 ; Bipolar disorder, unspecified F31.9 and Mild intellectual disability F70 [facility] [address] [place] [id number] [address] [place] [id number] Mar, Diabetes E11.9 [facility] [address] [id number] [address] [place] [id number] Jan, Encounter for immunization Z 23 [facility] [address] [place] [id number] [address] [place] [id number] Jan, Tinea pedis of both feet B35 .3 ; Other diabetic neurological complication associated with type 2 diabetes mellitus E11.49 and Onychomycosis B35.1 [facility] [address] [id number] [address] [place] [id number] Nov, Type 2 diabetes mellitus wit h complication E11.8 [facility] [address] [id number] [address] [place] [id number] Nov, [facility] [address] [place] [id number] [address] [place] [id number] Oct, Intermittent explosive disor salvatore in adult F63.81 ; Bipolar disorder, unspecified F31.9 and Mild intellectual disability F70 [facility] [address] [id number] [address] [place] [id number] Oct, [facility] [address] [id number] [address] [place] [address] [phone] Oct, Dental examination Z01.20 [facility] [address] [id number] [address] [place] [id number] Oct, Onychomycosis B35.1 and Othe r diabetic neurological complication associated with type 2 diabetes mellitus E11.49 [facility] [address] [id number] [address] [place] [id number] Sep, Type 2 diabetes mellitus wit h complication E11.8 and Colon cancer screening Z12.11 [facility] [address] [id number] [address] [place] [id number] Sep, Type 2 diabetes mellitus wit h complication E11.8 ; Colon cancer screening Z12.11 and Neuropathy G62.9 [facility] [address] [id number] [address] [place] [id number] August, Diabetes E11.9 [facility] [address] [id number] [address] [place] [address] [id number] Jul, Dental examination Z01.20 [facility] [address] [id number] [address] [place] [id number] 27 May, 2017 Mild intellectual disability F70 [facility] [address] [id number] [address] [place] [id number] 07 May, 2017 Mild intellectual disability F70 ; High risk medication use Z79.899 ; Intermittent explosive disorder in adult F63.81 and Bipolar disorder, unspecified F31.9 [facility] [address] [id number] [address] [place] [id number] 05 May, 2017 [facility] [address] [id number] [address] [place] [id number] May, [facility] [address] [id number] [address] [place] [id number] Apr, Type 2 diabetes mellitus wit h complication E11.8 ; Mild intellectual disability F70 ; Gastroesophageal reflux disease without esophagitis K21.9 ; Reactive airway disease, mild intermittent, uncomplicated J45.20 and Tobacco abuse Z72.0 [facility] [address] [id number] [address] [place] [id number] Apr, High risk medication use Z79 .899 ; Mild intellectual disability F70 ; Intermittent explosive disorder in adult F63.81 and Bipolar disorder, unspecified F31.9 [facility] [address] [id number] [place] [address] [id number] Mar, Encounter for dental exam an d cleaning w/o abnormal findings Z01.20 [facility] [address] [id number] [address] [place] [address] [id number] Mar, Dental examination Z01.20 [facility] [address] [id number] [address] [place] [id number] 12 Jan, 2017 [facility] [address] [id number] [address] [place] [id number] 11 Jan, 2017 [facility] [address] [id number] [address] [place] [phone] Jan, Mild intellectual disability F70 ; Bipolar disorder, unspecified F31.9 and Intermittent explosive disorder in adult F63.81 [facility] [address] [id number] [address] [place] [id number] 02 Jan, 2017 Diabetes E11.9 [facility] [address] [id number] [address] [place] [address] [id number] 13 Dec, 2016 Encounter for dental examina tion and cleaning without abnormal findings Z01.20 [facility] [address] [id number] [address] [place] [id number] 12 Dec, 2016 Bipolar disorder, unspecifie d F31.9 ; Intermittent explosive disorder in adult F63.81 and Mild intellectual disability F70 [facility] [address] [id number] [address] [place] [id number] Nov, Diabetes E11.9 [facility] [address] [id number] [address] [place] [id number] Nov, [facility] [address] [id number] [address] [place] [phone] Nov, Diabetes E11.9 and Colon can cer screening Z12.[address] [facility] [id number] [place] [address] [id number] Sep, Dental examination Z01.20 [facility] [address] [id number] [address] [place] [address] [id number] 21 Sep, 2016 Encounter for dental examina tion and cleaning without abnormal findings Z01.20 [facility] [address] [id number] [address] [place] [id number] Sep, Bipolar disorder, unspecifie d F31.9 [facility] [address] [id number] [address] [place] [id number] 12 Sep, 2016 Bipolar disorder, unspecifie d F31.9 [facility] [address] [id number] [address] [place] [id number] Jul, [facility] [address] [id number] [address] [place] [id number] Jul, Type 2 diabetes mellitus wit h complication E11.8 [facility] [address] [id number] [address] [place] [address] [id number] 15 Jun, 2016 Encounter for dental examina tion and cleaning without abnormal findings Z01.20 [facility] [address] [id number] [id number] 15 Jun, 2016 Dental examination Z01.20 [facility] [address] [id number] [address] [place] [id number] 18 Apr, 2016 Sports physical Z02.5 [facility] [address] [id number] [address] [place] [id number] 14 Mar, 2016 Bipolar disorder, in partial remission, most recent episode manic F31.73 and Intermittent explosive disorder in adult F63.81 [facility] [address] [id number] [address] [place] [id number] 08 Mar, 2016 [facility] [address] [id number] [address] [place] [id number] 06 Mar, 2016 Diabetes E11.9 [facility] [address] [id number] [address] [place] [address] [id number] Feb, Encounter for dental examina tion and cleaning without abnormal findings Z01.20 [facility] [address] [id number] [address] [place] [id number] 22 Dec, 2015 Nocturnal hypoxemia G47.34 a nd Encounter for immunization Z23 [facility] [address] [id number] [address] [place] [id number] 15 Dec, 2015 [facility] [address] [id number] [address] [place] [id number] Dec, [facility] [address] [id number] [address] [place] [id number] Dec, Bipolar disorder, unspecifie d F31.9 [facility] [address] [place] [id number] [address] [place] [address] [id number] Oct, Encounter for dental examina tion and cleaning without abnormal findings Z01.20 [facility] [id number] [place] [address] [id number] Oct, Dental examination Z01.20 [facility] [address] [id number] [address] [place] [id number] Oct, Diabetes E11.9 [facility] [address] [id number] [address] [place] [id number] 05 Oct, 2015 Diabetes E11.9 ; Reactive ai rway disease, mild intermittent, uncomplicated J45.20 and Tobacco abuse Z72.0 [facility] [address] [id number] Sep, Bipolar disorder, unspecifie d F31.9 and Depression F32.9 [place] [address] [id number] Sep, [place] [address] [id number] August, Tinea pedis of both feet B35 .3 and DM w/o complication type II, uncontrolled E11.65 [place] [address] [id number] Jul, [place] [address] [address] Jul, [place] [address] [address] Jul, Obstructive sleep apnea G47. 33 [place] [address] [id number] Jun, Diabetes E11.9 [place] [address] [address] Jun, [place] [address] [id number] Jun, [place] [address] [id number] Jun, Bipolar disorder, unspecifie d F31.9 and Mental retardation F79 [place] [address] [address] Apr, [place] [address] [address] Feb, Diabetes E11.9 ; Encounter f or immunization Z23 ; Cough R05 and Nicotine abuse Z72.0 [place] [address] [id number] Jan, Bipolar disorder, unspecifie d F31.9 and Diabetes mellitus without mention of complication, type II or unspecified type, uncontrolled 250.02 [place] [address] [place] [id number] [address] [place] [id number] Jan, [facility] [address] [place] [id number] [address] [place] [id number] Dec, Reactive airway disease 493. 90 and Enuresis 788.30 [place] [address] [place] [id number] [place] [phone] Dec, [place] [address] [place] [id number] [address] [place] [id number] Nov, [place] [address] [place] [id number] [place] [phone] Nov, [place] [address] [address] Nov, Annual physical exam V70.0 ; Urinary incontinence 788.30 ; Diabetes 250.00 and Hypertension 401.9 [place] [address] [place] [id number] [address] [place] [id number] Oct, Diabetes mellitus without me ntion of complication, type II or unspecified type, uncontrolled 250.02 [place] [address] [place] [id number] [address] [place] [id number] Oct, Diabetes mellitus without me ntion of complication, type II or unspecified type, uncontrolled 250.02 [place] [address] [place] [id number] [address] [place] [id number] Oct, Diabetes mellitus without me ntion of complication, type II or unspecified type, uncontrolled 250.02 [place] [address] [place] [id number] [address] [place] [id number] Oct, [place] [address] [place] [id number] [address] [place] [id number] Oct, [place] [address] [place] [id number] [address] [place] [id number] Oct, Bipolar disorder, unspecifie d 296.80 [facility] [address] [id number] [address] [place] [address] [id number] Sep, Dental examination V72.2 [facility] [address] [id number] [address] [place] [id number] August, [facility] [address] [id number] [address] [place] [address] [id number] August, Dental examination V72.2 [facility] [address] [id number] [address] [place] [phone] August, [facility] [address] [id number] [address] [place] [phone] Jul, [facility] [address] [id number] [address] [place] [id number] Jul, [facility] [address] [id number] [address] [place] [id number] Jun, [facility] [address] [id number] [address] [place] [id number] Jun, [facility] [address] [id number] [address] [place] [phone] Jun, [facility] [address] [id number] [address] [place] [phone] Jun, [facility] [address] [id number] [address] [place] [phone] May, [facility] [address] [id number] [address] [place] [phone] May, [facility] [address] [id number] [address] [place] [id number] May, [facility] [address] [id number] [address] [place] [phone] May, [facility] [address] [id number] [address] [place] [id number] 16 May, 2014 [facility] [address] [id number] [address] [place] [address], [place] [phone] 16 May, 2014 [facility] [address] [id number] [address] [place] [address], [place] [id number] 16 May, 2014 [facility] [address] [id number] [address] [place] [address], [place] [phone] 16 May, 2014 [facility] [address] [id number] [address] [place] [address], [place] [id number] 16 May, 2014 [facility] [address] [id number] [address] [place] [address], [place] [id number] May, 2014 [facility] [address] [id number] [address] [place] [address], [place] [id number] 16 May, 2014 [facility] [facility] [address] [id number] [address] [place] [address], [place] [address] 16 May, 2014 [facility] [address] [id number] [address] [place] [address], [place] [address] 16 May, 2014 [facility] [address] [id number] [address] [place] [address], [place] [address] May, 2014 [facility] [address] [id number] [address] [place] [address], [place] [address] 16 May, 2014 [facility] [address] [id number] [address] [place] [address], [place] [address] Apr, [facility] [address] [id number] [address] [place] [address], [place] [address] Apr, [facility] [address] [id number] [address] [place] [address], [place] [address] Apr, [facility] [address] [id number] [address] [place] [address], [place] [address] Apr, [facility] [address] [id number] [address] [place] [address] Apr, [facility] [address] [id number] [address] [place] [address], [place] [address] Apr, [facility] [address] [id number] [address] [place] [address], [place] [address] Apr, [facility] [address] [id number] [address] [place] [address], [place] [address] Apr, [facility] [address] [id number] [address] [place] [address], [place] [address] Apr, [facility] [address] [id number] [address] [place] [address], [place] [address] Apr, [facility] [address] [id number] [address] [place] [address], [place] [address] Apr, [facility] [address] [id number] [address] [place] [address], [place] [address] Apr, [facility] [address] [id number] [address] [place] [address], [place] [address] Mar, [facility] [address] [id number] [address] [place] [address], [place] [address] Mar, [facility] [address] [id number] [address] [place] [address], [place] [address] Mar, [facility] [address] [id number] [address] [place] [address], [place] [address] Mar, [facility] [address] [id number] [address] [place] [address], [place] [address] Mar, [facility] [address] [id number] [address] [place] [address], [place] [address] Mar, [facility] [address] [id number] [address] [place] [address], [place] [address] Feb, [facility] [address] [id number] [address] [place] [address], [place] [address] Feb, [facility] [address] [id number] [address] [place] [address], [place] [address] Feb, [facility] [address] [id number] [address] [place] [address], [place] [address] Feb, [facility] [address] [id number] [address] [place] [address], [place] [address] 14 Jan, 2014 [facility] [address] [id number] [address] [place] [address], [place] [address] 14 Jan, 2014 [facility] [address] [id number] [address] [place] [address], [place] [address] 14 Jan, 2014 [facility] [address] [id number] [address] [place] [address], [place] [address] 14 Jan, 2014 [facility] [address] [id number] [address] [place] [address], [place] [address] 22 Dec, 2013 [facility] [address] [id number] [address] [place] [address], [place] [address] Dec, [facility] [address] [id number] [address] [place] [address], [place] [address] 15 Dec, 2013 [facility] [address] [id number] [address] [place] [address], [place] [address] 15 Dec, 2013 [facility] [address] [id number] [address] [place] [address], [place] [address] Nov, [facility] [address] [id number] [address] [place] [address], [place] [address] Nov, [facility] [address] [id number] [address] [place] [address], [place] [address] Nov, [facility] [address] [id number] [address] [place] [address], [place] [address] Nov, [facility] [address] [id number] [address] [place] [address], [place] [address] Nov, [facility] [address] [id number] [address] [place] [address], [place] [address] Nov, [facility] [address] [id number] [facility] [place] [address] Nov, [facility] [address] [id number] [facility] [place] [address] Oct, [facility] [address] [id number] [facility] [place] [address] Oct, [facility] [address] [id number] [address] [place] [address], [place] [address] Oct, [facility] [address] [id number] [address] [place] [address], [place] [address] Oct, [facility] [address] [id number] [address] [place] [address], [place] [address] Oct, [facility] [address] [id number] [address] [place] [address], [place] [address] Oct, [facility] [address] [id number] [address] [place] [address], [place] [address] Oct, [facility] [address] [id number] [address] [place] [address], [place] [address] Sep, [facility] [address] [id number] [address] [place] [address], [place] [address] Sep, [facility] [address] [id number] [address] [place] [address], [place] [address] Sep, [facility] [address] [id number] [address] [place] [address], [place] [address] Sep, [facility] [address] [id number] [address] [place] [address], [place] [address] Sep, [facility] [address] [id number] [address] [place] [address], [place] [address] Jul, [facility] [address] [id number] [address] [place] [address], [place] [address] Jul, [facility] [address] [id number] [address] [place] [address], [place] [address] Jul, [facility] [address] [id number] [facility] [place] [address] Jul, [facility] [address] [id number] [facility] [place] [address] Jul, [facility] [address] [id number] [facility] [place] [address] Jul, [facility] [address] [id number] [address] [place] [address], [place] [address] Jul, [facility] [address] [id number] [address] [place] [address], [place] [address] Jul, [facility] [address] [id number] [address] [place] [address], [place] [address] Jul, [facility] [address] [id number] [address] [place] [address], [place] [address] Jul, [facility] [address] [id number] [address] [place] [address], [place] [address] Jul, [facility] [address] [id number] [address] [place] [address], [place] [address] Jul, [facility] [address] [id number] [address] [place] [address], [place] [address] Jun, [facility] [address] [id number] [address] [place] [address], [place] [address] Jun, [facility] [address] [id number] [address] [place] [address], [place] [address] Jun, [facility] [address] [id number] [address] [place] [address], [place] [address] Jun, [facility] [address] [id number] [address] [place] [address], [place] [address] Jun, [facility] [address] [id number] [address] [place] [address], [place] [address] Jun, [facility] [address] [id number] [address] [place] [address], [place] [address] Jun, [facility] [address] [id number] [address] [place] [address], [place] [address] Jun, [facility] [address] [id number] [address] [place] [address], [place] [address] May, [facility] [address] [id number] [address] [place] [address], [place] [address] May, [facility] [address] [id number] [address] [place] [address], [place] [address] May, [facility] [address] [id number] [address] [place] [address], [place] [address] May, [facility] [address] [id number] [address] [place] [address], [place] [address] May, [facility] [address] [id number] [address] [place] [address], [place] [address] May, [facility] [address] [id number] [address] [place] [address], [place] [address] May, [facility] [address] [id number] [address] [place] [address], [place] [address] May, [facility] [address] [id number] [address] [place] [address], [place] [address] Apr, [facility] [address] [id number] [address] [place] [address], [place] [address] Apr, [facility] [address] [id number] [address] [place] [address], [place] [address] Apr, [facility] [address] [id number] [address] [place] [address], [place] [address] Apr, [facility] [address] [id number] [address] [place] [address], [place] [address] Mar, [facility] [address] [id number] [address] [place] [address], [place] [address] Mar, [facility] [address] [id number] [address] [place] [address], [place] [address] Mar, [facility] [address] [id number] [address] [place] [address], [place] [address] Feb, [facility] [address] [id number] [address] [place] [address], [place] [address] Feb, [facility] [address] [id number] [address] [place] [address], [place] [address] Feb, [facility] [address] [id number] [address] [place] [address], [place] [address] Feb, [facility] [address] [id number] [address] [place] [address], [place] [address] Feb, [facility] [address] [id number] [address] [place] [address], [place] [address] Feb, [facility] [address] [id number] [address] [place] [address], [place] [address] Jan, [facility] [address] [id number] [address] [place] [address], [place] [address] Jan, [facility] [address] [id number] [address] [place] [address], [place] [address] Jan, [facility] [address] [id number] [address] [place] [address], [place] [address] Jan, [facility] [address] [id number] [address] [place] [address] Jan, [facility] [address] [id number] [address] [place] [address], [place] [address] Jan, [facility] [address] [id number] [address] [place] [address], [place] [address] Jan, [facility] [address] [id number] [address] [place] [address], [place] [address] Dec, [facility] [address] [id number] [address] [place] [address], [place] [address] 16 Dec, 2012 [facility] [address] [id number] [address] [place] [address], [place] [address] Dec, [facility] [address] [id number] [address] [place] [address], [place] [address] Dec, [facility] [address] [id number] [address] [place] [address], [place] [address] Nov, [facility] [address] [id number] [address] [place] [address], [place] [address] Nov, [facility] [address] [id number] [address] [place] [address], [place] [address] Nov, [facility] [address] [id number] [address] [place] [address], [place] [address] Nov, [facility] [address] [id number] [address] [place] [address], [place] [address] Nov, [facility] [address] [id number] [address] [place] [address], [place] [address] Nov, [facility] [address] [id number] [address] [place] [address], [place] [address] Nov, [facility] [address] [id number] [address] [place] [address], [place] [address] Oct, [facility] [address] [id number] [address] [place] [address], [place] [address] Oct, [facility] [address] [id number] [address] [place] [address], [place] [address] Oct, [facility] [address] [id number] [address] [place] [address], [place] [address] Oct, [facility] [address] [id number] [address] [place] [address], [place] [address] Oct, [facility] [address] [id number] [address] [place] [address], [place] [address] Oct, [facility] [address] [id number] [address] [place] [address], [place] [address] Oct, [facility] [address] [id number] [address] [place] [address], [place] [address] Oct, [facility] [address] [id number] [address] [place] [address], [place] [address] Sep, [facility] [address] [id number] [place] [id number] August, [facility] [address] [id number] [address] [place] [address], [place] [address] August, [facility] [address] [id number] [address] [place] [address], [place] [address] Jul, [facility] [address] [id number] [address] [place] [address], [place] [address] Jul, [facility] [address] [id number] [address] [place] [address], [place] [address] Jul, [facility] [address] [id number] [address] [place] [address], [place] [address] Jul, [facility] [address] [id number] [address] [place] [address], [place] [address] Jul, [facility] [address] [id number] [address] [place] [address], [place] [address] Jul, [facility] [address] [id number] [address] [place] [address], [place] [address] 16 Jul, 2012 [facility] [address] [id number] [address] [place] [address], [place] [address] Jun, [facility] [address] [id number] [address] [place] [address], [place] [address] 18 Jun, 2012 [facility] [address] [id number] [address] [place] [address], [place] [address] Jun, [facility] [address] [id number] [address] [place] [address], [place] [address] 04 Jun, 2012 [facility] [address] [id number] [address] [place] [address], [place] [address] Jun, [facility] [address] [id number] [address] [place] [address], [place] [address] May, [facility] [address] [id number] [address] [place] [address], [place] [address] 18 May, 2012 [facility] [address] [id number] [address] [place] [address], [place] [address] May, [facility] [address] [id number] [address] [place] [address], [place] [address] 15 Apr, 2012 [facility] [address] [id number] [address] [place] [address], [place] [address] 14 Apr, 2012 [facility] [address] [id number] [address] [place] [address], [place] [address] Apr, [facility] [address] [id number] [address] [place] [address], [place] [address] Mar, [facility] [address] [id number] [address] [place] [address], [place] [address] Mar, [facility] [address] [id number] [address] [place] [address], [place] [address] Mar, [facility] [address] [id number] [address] [place] [address], [place] [address] Mar, [facility] [address] [id number] [address] [place] [address], [place] [address] Mar, [facility] [address] [id number] [address] [place] [address], [place] [address] Mar, [facility] [address] [id number] [address] [place] [address], [place] [address] Feb, [facility] [address] [id number] [address] [place] [address], [place] [address] Feb, [facility] [address] [id number] [address] [place] [address], [place] [address] Jan, [facility] [address] [id number] [address] [place] [address], [place] [address] Jan, [facility] [address] [id number] [address] [place] [address], [place] [address] Dec, [facility] [address] [id number] [address] [place] [address], [place] [address] Nov, [facility] [address] [id number] [address] [place] [address], [place] [address] Nov, [facility] [address] [id number] [address] [place] [address], [place] [address] Nov, [facility] [address] [id number] [address] [place] [address], [place] [address] Nov, [facility] [address] [id number] [address] [place] [address], [place] [address] Oct, [facility] [address] [id number] [address] [place] [address], [place] [address] Oct, [facility] [address] [id number] [address] [place] [address], [place] [address] Oct, [facility] [address] [id number] [address] [place] [address], [place] [address] Sep, [facility] [address] [id number] [address] [place] [address], [place] [address] Sep, [facility] [address] [id number] [address] [place] [address], [place] [address] Sep, [facility] [address] [id number] [address] [place] [address], [place] [address] August, [facility] [address] [id number] [address] [place] [address], [place] [address] August, [facility] [address] [id number] [address] [place] [address], [place] [address] Jul, 2011 [facility] [address] [id number] [address] [place] [address], [place] [address] 24 Jul, 2011 [facility] [address] [id number] [address] [place] [address], [place] [address] 17 Jul, 2011 [facility] [address] [id number] [address] [place] [address], [place] [address] Jul, [facility] [address] [id number] [address] [place] [address], [place] [address] Jun, [facility] [address] [id number] [address] [place] [address], [place] [address] May, [facility] [address] [id number] [address] [place] [address], [place] [address] Apr, [facility] [address] [id number] [address] [place] [address], [place] [address] Apr, [facility] [address] [id number] [address] [place] [address], [place] [address] Apr, [facility] [address] [id number] [address] [place] [address], [place] [address] Apr, [facility] [address] [id number] [address] [place] [address], [place] [address] Apr, [facility] [address] [id number] [address] [place] [address], [place] [address] Apr, [facility] [address] [id number] [address] [place] [address], [place] [address] Mar, [facility] [address] [id number] [address] [place] [address], [place] [address] Mar, [facility] [address] [id number] [address] [place] [address], [place] [address] Feb, [facility] [address] [id number] [address] [place] [address], [place] [address] Feb, [facility] [address] [id number] [address] [place] [address], [place] [address] 17 Feb, 2011 [facility] [address] [id number] [address] [place] [address], [place] [address] 09 Feb, 2011 [facility] [address] [id number] [address] [place] [address], [place] [address] 20 Jan, 2011 [facility] [address] [id number] [address] [place] [address], [place] [address] 18 Jan, 2011 [facility] [address] [id number] [address] [place] [address], [place] [address] 18 Jan, 2011 [facility] [address] [id number] [address] [place] [address], [place] [address] 18 Jan, 2011 [facility] [address] [id number] [address] [place] [address], [place] [address] Nov, [facility] [address] [id number] [address] [place] [address], [place] [address] Mar, [facility] [address] [id number] [address] [place] [address], [place] [address] 02 Mar, 2010 [facility] [address] [id number] [address] [place] [address], [place] [address] 30 Feb, 2010 [facility] [address] [id number] [address] [place] [address], [place] [address] 15 Feb, 2010 [facility] [address] [id number] [address] [place] [address], [place] [address] Jan, [facility] [address] [id number] [address] [place] [address], [place] [address] Jan, [facility] [address] [id number] [address] [place] [address], [place] [address] 15 Sep, 2009 [facility] [address] [id number] [address] [place] [address], [place] [address] 16 May, 2009 [facility] [address] [id number] [address] [place] [address], [place] [address] Apr, [facility] [address] [id number] [address] [place] [id number] Mar, [facility] [address] [id number] [address] [place] [id number] Feb, [facility] [address] [id number] [address] [place] [id number] Feb, [facility] [address] [id number] [address] [place] [id number] Feb, [facility] [address] [id number] [address] [place] [id number] Jan, [facility] [address] [id number] [address] [place] [id number] Jan, [facility] [address] [id number] [address] [place] [id number] Jan, [facility] [address] [id number] [address] [place] [id number] Jan, [facility] [address] [id number] [address] [place] [id number] August, IMMUNIZATIONS No Known Immunizations SOCIAL HISTORY [...] 7 Hospitalization History surgery Hospitalization History [facility], inva tie treatment few times for BH
--- OUTSIDE RECORDS SUMMARY | 2019-11-05 07:55 | XMS REPORT ---
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 Active 14741584 Problem Hypertensive retinopathy of both eyes H35.033 Active 3272911 Problem Open-angle glaucoma of both eyes, unspecified glaucoma stage, unspecified open-angle glaucoma type H40.10X0 Acti ve 28057400 Problem Obstructive sleep apnea G47.33 Active 76583745 Problem Type 2 diabetes mellitus with complication E11.8 Active 98577064 Problem Intermittent explosive disorder in adult F63.81 Active 82133133 Problem Bipolar disorder, unspecified F31.9 Active 20106176 Problem Mild intellectual disability F70 A ctive 96678557 Problem Other specified urinary incontinence N39.498 Active 862194404 Problem Diabetes E11.9 Active 74988392 Problem Type 2 diabetes mellitus wit h diabetic neuropathy, unspecified whether fdc insulin use E11.40 Active 518244 769332955 Problem Essential hypertension I10 Active 65140353 Problem Reactive airway disease, mild intermittent, uncomplicated J45.20 Active 535345135 Problem Gastroesophageal reflux disease without esophagitis K21.9 Active 930525699 Problem Other diabetic neurological complication associated with type 2 diabetes mellitus E11.49 Active 324470228 Problem Neuropathy G62.9 Active [id number] ALLERGIES No Information ENCOUNTERS Encounter Location Date Diagnosis [facility] [address] [facility] [id number] [address] [address] Dec, OUTREACH [facility] [id number] [place] [address] Nov, [facility] [address] [place] [address] Oct, [facility] [address] [place] [address] Sep, [facility] [address] [place] [id number] [place] [address] Sep, [facility] [address] [address] Sep, [facility] [address] [place] [id number] [place] [address] Sep, Essential hypertension I10 [place] [address] [place] [id number] [place] [address] August, Intermittent explosive disor salvatore in adult F63.81 ; Bipolar disorder, unspecified F31.9 and Mild intellectual disability F70 [place] [address] [place] [address] Jul, Type 2 diabetes mellitus wit h diabetic neuropathy, unspecified whether buttermaker helper insulin use E11.40 and Colon cancer screening Z12.11 [place] [address] [place] [address] Jul, Type 2 diabetes mellitus wit h diabetic neuropathy, unspecified whether buttermaker helper insulin use E11.40 and Tinea pedis, unspecified laterality B35.3 [facility] [address] [place] [address] Jun, [facility] [address] [place] [address] Jun, [facility] [address] [place] [address] Jun, Dysuria R30.0 [facility] [address] [place] [id number] [place] [address] Jun, [facility] [address] [place] [address] [id number] [place] [address] 20 May, 2019 Influenza J11.1 [facility] [address] [place] [id number] [place] [address] 13 May, 2019 Intermittent explosive disor salvatore in adult F63.81 [facility] [address] [place] [id number] [place] [address] May, [facility] [address] [place] [id number] [place] [address] Apr, Intermittent explosive disor salvatore in adult F63.81 ; Bipolar disorder, unspecified F31.9 and Mild intellectual disability F70 [facility] [address] [place] [id number] [place] [address] Apr, Oral health maintenance stat us requiring routine preventive dental care K08.9 [place] [address] [place] [id number] [place] [address] Apr, Type 2 diabetes mellitus wit h complication E11.8 ; History of test for hearing Z92.89 ; Colon cancer screening Z12.11 ; Other specified urinary incontinence N39.498 and Impacted cerumen, right ear H61.21 [place] [address] [place] [id number] [place] [address] 10 Apr, 2019 Onychomycosis B35.1 ; Other diabetic neurological complication associated with type 2 diabetes mellitus E11.49 and Tinea pedis of both feet B35.3 [place] [address] [place] [id number] [place] [address] Feb, [place] [address] [place] [id number] [place] [address] Jan, [place] [address] [place] [id number] [place] [address] Jan, [facility] [address] [place] [id number] [place] [address] Jan, [place] [address] [place] [id number] [place] [address] Jan, [facility] [address] [facility] [id number] [address] [place] [address] Jan, [facility] [address] [facility] [id number] [address] [place] [address] Jan, [facility] [address] [facility] [id number] [address] [place] [address] Jan, [facility] [address] [facility] [id number] [address] [place] [address] Jan, Anemia D64.9 [facility] [address] [facility] [id number] [place] [address] Jan, Dental examination Z01.20 an d Oral health maintenance status requiring routine preventive dental care K08.9 [facility] [address] [facility] [id number] [address] [place] [address] Jan, Onychomycosis B35.1 and Othe r diabetic neurological complication associated with type 2 diabetes mellitus E11.49 [facility] [address] [facility] [id number] [address] [place] [address] Jan, Anemia D64.9 [facility] [address] [facility] [id number] [address] [place] [address] Jan, [facility] [address] [facility] [id number] [address] [place] [address] Dec, Urinary tract infection with out hematuria, site unspecified N39.0 [facility] [address] [facility] [id number] [address] [place] [address] Dec, Type 2 diabetes mellitus wit h complication E11.8 ; Urinary tract infection without hematuria, site unspecified N39.0 ; Impacted cerumen of both ears H61.23 ; Encounter for immunization Z23 and Hyponatremia E87.1 [facility] [address] [facility] [id number] [address] [place] [address] Dec, Intermittent explosive disor salvatore in adult F63.81 ; Dysuria R30.0 ; Type 2 diabetes mellitus with complication E11.8 ; Bipolar disorder, unspecified F31.9 and Mild intellectual disability F70 [facility] [address] [id number] [address] [place] [address] Dec, Dysuria R30.0 [facility] [address] [id number] [address] [place] [address] Dec, Intermittent explosive disor salvatore in adult F63.81 ; Bipolar disorder, unspecified F31.9 and Mild intellectual disability F70 [facility] [address] [facility] [id number] [address] [place] [address] Nov, [facility] [address] [facility] [id number] [address] [place] [address] Oct, [facility] [address] [facility] [id number] [place] [address] Oct, Oral health maintenance stat us requiring routine preventive dental care K08.9 [facility] [address] [facility] [id number] [address] [place] [address] August, Intermittent explosive disor salvatore in adult F63.81 ; Bipolar disorder, unspecified F31.9 and Mild intellectual disability F70 [facility] [address] [id number] [address] [place] [id number] August, Dental caries K02.9 [facility] [address] [facility] [id number] [address] [place] [address] Jul, Onychomycosis B35.1 ; Other diabetic neurological complication associated with type 2 diabetes mellitus E11.49 and Tinea pedis of both feet B35.3 [facility] [address] [id number] [address] [place] [address] [id number] Jul, Caries K02.9 [facility] [address] [id number] [address] [place] [address] Jul, Type 2 diabetes mellitus wit h complication E11.8 ; Tobacco abuse Z72.0 and Bipolar disorder, unspecified F31.9 [facility] [address] [place] [id number] [address] [place] [address] Jun, [facility] [address] [facility] [id number] [address] [place] [address] [id number] Jun, Dental examination Z01.20 an d Oral health maintenance status requiring routine preventive dental care K08.9 [facility] [address] [place] [address] 11 May, 2018 Bilateral impacted cerumen H 61.23 [facility] [address] [place] [address] Apr, Bipolar disorder, unspecifie d F31.9 ; Intermittent explosive disorder in adult F63.81 ; Type 2 diabetes mellitus with complication E11.8 ; Tobacco abuse Z72.0 and Colon cancer screening Z12.11 [facility] [address] [place] [id number] [address] [place] [address] Apr, Onychomycosis B35.1 and Othe r diabetic neurological complication associated with type 2 diabetes mellitus E11.49 [facility] [address] [place] [id number] [address] [place] [address] Apr, Intermittent explosive disor salvatore in adult F63.81 ; Bipolar disorder, unspecified F31.9 and Mild intellectual disability F70 [facility] [address] [place] [id number] [address] [place] [address] Mar, Diabetes E11.9 [facility] [address] [place] [id number] [place] [address] Jan, Encounter for immunization Z 23 [facility] [address] [place] [id number] [address] [place] [address] Jan, Tinea pedis of both feet B35 .3 ; Other diabetic neurological complication associated with type 2 diabetes mellitus E11.49 and Onychomycosis B35.1 [facility] [address] [place] [id number] [address] [place] [phone] Nov, Type 2 diabetes mellitus wit h complication E11.8 [facility] [address] [facility] [id number] [address] [place] [address] Nov, [facility] [address] [facility] [id number] [address] [place] [address] Oct, Intermittent explosive disor salvatore in adult F63.81 ; Bipolar disorder, unspecified F31.9 and Mild intellectual disability F70 [facility] [address] [facility] [id number] [address] [place] [address] Oct, [facility] [address] [facility] [id number] [address] [place] [address] [id number] Oct, Dental examination Z01.20 [facility] [address] [facility] [id number] [address] [place] [address] Oct, Onychomycosis B35.1 and Othe r diabetic neurological complication associated with type 2 diabetes mellitus E11.49 [place] [address] [facility] [id number] [address] [place] [address] Sep, Type 2 diabetes mellitus wit h complication E11.8 and Colon cancer screening Z12.11 [facility] [address] [facility] [id number] [address] [place] [address] Sep, Type 2 diabetes mellitus wit h complication E11.8 ; Colon cancer screening Z12.11 and Neuropathy G62.9 [facility] [address] [facility] [id number] [address] [place] [address] August, Diabetes E11.9 [facility] [address] [facility] [id number] [address] [place] [address] [id number] Jul, Dental examination Z01.20 [facility] [address] [facility] [id number] [address] [place] [address] May, Mild intellectual disability F70 [facility] [address] [facility] [id number] [address] [place] [phone] 07 May, 2017 Mild intellectual disability F70 ; High risk medication use Z79.899 ; Intermittent explosive disorder in adult F63.81 and Bipolar disorder, unspecified F31.9 [facility] [address] [id number] [address] [place] [address] May, [facility] [address] [id number] [address] [place] [phone] May, [facility] [address] [id number] [address] [place] [address] Apr, Type 2 diabetes mellitus wit h complication E11.8 ; Mild intellectual disability F70 ; Gastroesophageal reflux disease without esophagitis K21.9 ; Reactive airway disease, mild intermittent, uncomplicated J45.20 and Tobacco abuse Z72.0 [facility] [address] [id number] [address] [place] [address] Apr, High risk medication use Z79 .899 ; Mild intellectual disability F70 ; Intermittent explosive disorder in adult F63.81 and Bipolar disorder, unspecified F31.9 [facility] [address] [id number] [place] [address] [id number] Mar, Encounter for dental exam an d cleaning w/o abnormal findings Z01.20 [facility] [address] [id number] [address] [place] [address] [id number] Mar, Dental examination Z01.20 [facility] [address] [id number] [address] [place] [phone] 12 Jan, 2017 [facility] [address] [id number] [address] [place] [address] Jan, [facility] [address] [id number] [address] [place] [address] Jan, Mild intellectual disability F70 ; Bipolar disorder, unspecified F31.9 and Intermittent explosive disorder in adult F63.81 [facility] [address] [id number] [address] [place] [phone] 02 Jan, 2017 Diabetes E11.9 [facility] [address] [id number] [address] [place] [address] [id number] Dec, Encounter for dental examina tion and cleaning without abnormal findings Z01.20 [facility] [address] [id number] [address] [place] [address] 12 Dec, 2016 Bipolar disorder, unspecifie d F31.9 ; Intermittent explosive disorder in adult F63.81 and Mild intellectual disability F70 [facility] [address] [id number] [address] [place] [address] Nov, Diabetes E11.9 [facility] [address] [id number] [address] [place] [phone] Nov, [facility] [address] [id number] [address] [place] [address] Nov, Diabetes E11.9 and Colon can cer screening Z12.[address] [facility] [address] [id number] [id number] Sep, Dental examination Z01.20 [facility] [address] [id number] [address] [place] [address] [id number] Sep, Encounter for dental examina tion and cleaning without abnormal findings Z01.20 [facility] [address] [id number] [address] [place] [address] 13 Sep, 2016 Bipolar disorder, unspecifie d F31.9 [facility] [address] [id number] [address] [place] [address] Sep, Bipolar disorder, unspecifie d F31.9 [facility] [address] [id number] [address] [place] [phone] Jul, [facility] [address] [id number] [address] [place] [phone] Jul, Type 2 diabetes mellitus wit h complication E11.8 [facility] [address] [id number] [address] [place] [address] [id number] Jun, Encounter for dental examina tion and cleaning without abnormal findings Z01.[address] [facility] [address] [id number] [id number] Jun, Dental examination Z01.20 [facility] [address] [id number] [address] [place] [address] 18 Apr, 2016 Sports physical Z02.5 [facility] [address] [id number] [address] [place] [phone] 14 Mar, 2016 Bipolar disorder, in partial remission, most recent episode manic F31.73 and Intermittent explosive disorder in adult F63.81 [facility] [address] [id number] [address] [place] [address] 08 Mar, 2016 [facility] [address] [id number] [address] [place] [phone] 06 Mar, 2016 Diabetes E11.9 [facility] [address] [id number] [address] [place] [address] [id number] Feb, Encounter for dental examina tion and cleaning without abnormal findings Z01.20 [facility] [address] [id number] [address] [place] [address] 22 Dec, 2015 Nocturnal hypoxemia G47.34 a nd Encounter for immunization Z23 [facility] [address] [id number] [address] [place] [phone] 15 Dec, 2015 [facility] [address] [id number] [address] [place] [phone] Dec, [facility] [address] [id number] [address] [place] [phone] Dec, Bipolar disorder, unspecifie d F31.9 [facility] [address] [id number] [address] [place] [address] [id number] Oct, Encounter for dental examina tion and cleaning without abnormal findings Z01.20 [facility] [id number] [place] [address] [id number] Oct, Dental examination Z01.20 [facility] [address] [id number] [address] [place] [address] Oct, Diabetes E11.9 [place] [id number] [facility] [id number] [address] [place] [address] Oct, Diabetes E11.9 ; Reactive ai rway disease, mild intermittent, uncomplicated J45.20 and Tobacco abuse Z72.0 [facility] [address] [facility] [id number] [address] [place] [address] Sep, Bipolar disorder, unspecifie d F31.9 and Depression F32.9 [place] [address] [place] [id number] [address] [place] [address] Sep, [place] [address] [place] [id number] [place] [address] August, Tinea pedis of both feet B35 .3 and DM w/o complication type II, uncontrolled E11.65 [place] [address] [place] [id number] [address] [place] [address] Jul, [place] [address] [place] [id number] [place] [address] Jul, [place] [address] [place] [id number] [place] [address] Jul, Obstructive sleep apnea G47. 33 [place] [address] [place] [id number] [place] [address] Jun, Diabetes E11.9 [facility] [address] [place] [id number] [address] [place] [address] Jun, [facility] [address] [place] [id number] [place] [phone] Jun, [facility] [address] [place] [id number] [address] [place] [phone] Jun, Bipolar disorder, unspecifie d F31.9 and Mental retardation F79 [facility] [address] [facility] [id number] [address] [place] [phone] Apr, [facility] [address] [place] [id number] [address] [place] [address] Feb, Diabetes E11.9 ; Encounter f or immunization Z23 ; Cough R05 and Nicotine abuse Z72.[address] [address] Jan, Bipolar disorder, unspecifie d F31.9 and Diabetes mellitus without mention of complication, type II or unspecified type, uncontrolled 250.[address] [address] Jan, [address] [address] Dec, Reactive airway disease 493. 90 and Enuresis 788.[address] [address] Dec, [address] [address] Nov, [address] [address] Nov, [address] [address] Nov, Annual physical exam V70.0 ; Urinary incontinence 788.30 ; Diabetes 250.00 and Hypertension 401.[address] [address] Oct, Diabetes mellitus without me ntion of complication, type II or unspecified type, uncontrolled 250.[address] [address] Oct, Diabetes mellitus without me ntion of complication, type II or unspecified type, uncontrolled 250.[address] [address] Oct, Diabetes mellitus without me ntion of complication, type II or unspecified type, uncontrolled 250.[address] [address] Oct, [facility] [address] [id number] [address] [place] [phone] Oct, [facility] [address] [id number] [address] [place] [address] Oct, Bipolar disorder, unspecifie d 296.80 [facility] [address] [id number] [address] [place] [address] [id number] Sep, Dental examination V72.2 [facility] [address] [id number] [address] [place] [phone] August, [facility] [address] [id number] [address] [place] [address] [id number] August, Dental examination V72.2 [facility] [address] [id number] [address] [place] [phone] August, [facility] [address] [id number] [address] [place] [phone] Jul, [facility] [facility] [address] [id number] [address] [place] [address] Jul, [facility] [address] [id number] [address] [place] [address] Jun, [facility] [address] [id number] [address] [place] [address] Jun, [facility] [address] [id number] [address] [place] [address] Jun, [facility] [address] [id number] [address] [place] [address] Jun, [facility] [address] [id number] [address] [place] [address] May, [facility] [address] [id number] [address] [place] [address] May, [facility] [address] [id number] [address] [place] [address] 16 May, 2014 [facility] [address] [id number] [address] [place] [address], [place] [address] 16 May, 2014 [facility] [address] [id number] [address] [place] [address], [place] [address] 16 May, 2014 [facility] [address] [id number] [address] [place] [address], [place] [address] 16 May, 2014 [facility] [address] [id number] [address] [place] [address], [place] [address] 16 May, 2014 [facility] [address] [id number] [address] [place] [address], [place] [address] May, 2014 [facility] [address] [id number] [address] [place] [address], [place] [address] 16 May, 2014 [facility] [address] [id number] [address] [place] [address], [place] [address] 16 May, 2014 [facility] [address] [id number] [address] [place] [address], [place] [address] May, 2014 [facility] [address] [id number] [address] [place] [address], [place] [address] May, 2014 [facility] [address] [id number] [address] [place] [address], [place] [address] 16 May, 2014 [facility] [address] [id number] [address] [place] [address], [place] [address] May, 2014 [facility] [address] [id number] [address] [place] [address], [place] [address] May, 2014 [facility] [address] [id number] [address] [place] [address], [place] [address] Apr, [facility] [address] [id number] [address] [place] [address], [place] [address] Apr, [facility] [address] [id number] [address] [place] [address], [place] [address] Apr, [facility] [address] [id number] [address] [place] [address], [place] [address] Apr, [facility] [address] [id number] [address] [place] [address], [place] [address] Apr, [facility] [address] [id number] [address] [place] [address], [place] [address] Apr, [facility] [address] [id number] [address] [place] [address], [place] [address] Apr, [facility] [address] [id number] [address] [place] [address], [place] [address] Apr, [facility] [address] [id number] [address] [place] [address], [place] [address] Apr, [facility] [address] [id number] [address] [place] [address], [place] [address] Apr, [facility] [address] [id number] [address] [place] [address], [place] [address] Apr, [facility] [address] [id number] [address] [place] [address], [place] [address] Apr, [facility] [address] [id number] [address] [place] [address], [place] [address] Mar, [facility] [address] [id number] [address] [place] [address], [place] [address] Mar, [facility] [address] [id number] [address] [place] [address], [place] [address] Mar, [facility] [address] [id number] [address] [place] [address], [place] [address] Mar, [facility] [address] [id number] [address] [place] [address], [place] [address] Mar, [facility] [address] [id number] [address] [place] [address], [place] [address] Mar, [facility] [address] [id number] [address] [place] [address] Feb, [facility] [address] [id number] [address] [place] [address], [place] [address] Feb, [facility] [address] [id number] [address] [place] [address], [place] [address] Feb, [facility] [address] [id number] [address] [place] [address], [place] [address] Feb, [facility] [address] [id number] [address] [place] [address], [place] [address] 14 Jan, 2014 [facility] [address] [id number] [address] [place] [address], [place] [address] 14 Jan, 2014 [facility] [address] [id number] [address] [place] [address], [place] [address] 14 Jan, 2014 [facility] [address] [id number] [address] [place] [address], [place] [address] 14 Jan, 2014 [facility] [address] [id number] [address] [place] [address], [place] [address] 22 Dec, 2013 [facility] [address] [id number] [address] [place] [address], [place] [address] 22 Dec, 2013 [facility] [address] [id number] [address] [place] [address], [place] [address] 15 Dec, 2013 [facility] [address] [id number] [address] [place] [address], [place] [address] 15 Dec, 2013 [facility] [address] [id number] [address] [place] [address], [place] [address] Nov, [facility] [address] [id number] [address] [place] [address], [place] [address] Nov, [facility] [address] [id number] [address] [place] [address], [place] [address] Nov, [facility] [address] [id number] [address] [place] [address], [place] [address] Nov, [facility] [address] [id number] [facility] [place] [address] Nov, [facility] [address] [id number] [facility] [place] [address] Nov, [facility] [address] [id number] [facility] [place] [address] Nov, [facility] [address] [id number] [address] [place] [address], [place] [address] Oct, [facility] [address] [id number] [address] [place] [address], [place] [address] Oct, [facility] [address] [id number] [address] [place] [address], [place] [address] Oct, [facility] [address] [id number] [address] [place] [address], [place] [address] Oct, [facility] [address] [id number] [address] [place] [address], [place] [address] Oct, [facility] [address] [id number] [address] [place] [address], [place] [address] Oct, [facility] [address] [id number] [address] [place] [address], [place] [address] Oct, [facility] [address] [id number] [address] [place] [address], [place] [address] Sep, [facility] [address] [id number] [address] [place] [address], [place] [address] Sep, [facility] [address] [id number] [address] [place] [address], [place] [address] Sep, [facility] [address] [id number] [address] [place] [address], [place] [address] Sep, [facility] [address] [id number] [address] [place] [address], [place] [address] Sep, [facility] [address] [id number] [address] [place] [address], [place] [address] Jul, [facility] [address] [id number] [facility] [place] [address] Jul, [facility] [address] [id number] [facility] [place] [address] Jul, [facility] [address] [id number] [address] [place] [address], [place] [address] Jul, [facility] [address] [id number] [address] [place] [address], [place] [address] Jul, [facility] [address] [id number] [address] [place] [address], [place] [address] Jul, [facility] [address] [id number] [address] [place] [address], [place] [address] Jul, [facility] [address] [id number] [address] [place] [address], [place] [address] Jul, [facility] [address] [id number] [address] [place] [address], [place] [address] Jul, [facility] [address] [id number] [address] [place] [address], [place] [address] Jul, [facility] [address] [id number] [address] [place] [address], [place] [address] Jul, [facility] [address] [id number] [address] [place] [address], [place] [address] Jul, [facility] [address] [id number] [address] [place] [address], [place] [address] Jun, [facility] [address] [id number] [address] [place] [address], [place] [address] Jun, [facility] [address] [id number] [address] [place] [address], [place] [address] Jun, [facility] [address] [id number] [address] [place] [address], [place] [address] Jun, [facility] [address] [id number] [address] [place] [address], [place] [address] Jun, [facility] [address] [id number] [address] [place] [address], [place] [address] Jun, [facility] [address] [id number] [address] [place] [address], [place] [address] Jun, [facility] [address] [id number] [address] [place] [address], [place] [address] Jun, [facility] [address] [id number] [address] [place] [address], [place] [address] May, [facility] [address] [id number] [address] [place] [address], [place] [address] May, [facility] [address] [id number] [address] [place] [address], [place] [address] May, [facility] [address] [id number] [address] [place] [address], [place] [address] May, [facility] [address] [id number] [address] [place] [address], [place] [address] May, [facility] [address] [id number] [address] [place] [address], [place] [address] May, [facility] [address] [id number] [address] [place] [address], [place] [address] May, [facility] [address] [id number] [address] [place] [address], [place] [address] May, [facility] [address] [id number] [address] [place] [address], [place] [address] Apr, [facility] [address] [id number] [address] [place] [address], [place] [address] Apr, [facility] [address] [id number] [address] [place] [address], [place] [address] Apr, [facility] [address] [id number] [address] [place] [address] [address] Apr, [facility] [address] [id number] [address] [place] [address], [place] [address] Mar, [facility] [address] [id number] [address] [place] [address], [place] [address] Mar, [facility] [address] [id number] [address] [place] [address], [place] [address] Mar, [facility] [address] [id number] [address] [place] [address], [place] [address] Feb, [facility] [address] [id number] [address] [place] [address], [place] [address] Feb, [facility] [address] [id number] [address] [place] [address], [place] [address] Feb, [facility] [address] [id number] [address] [place] [address], [place] [address] Feb, [facility] [address] [id number] [address] [place] [address], [place] [address] Feb, [facility] [address] [id number] [address] [place] [address], [place] [address] Feb, [facility] [address] [id number] [address] [place] [address], [place] [address] Jan, [facility] [address] [id number] [address] [place] [address], [place] [address] Jan, [facility] [address] [id number] [address] [place] [address] Jan, [facility] [address] [id number] [address] [place] [address], [place] [address] Jan, [facility] [address] [id number] [address] [place] [address], [place] [address] Jan, [facility] [address] [id number] [address] [place] [address], [place] [address] Jan, [facility] [address] [id number] [address] [place] [address], [place] [address] 2013 [facility] [address] [id number] [address] [place] [address], [place] [address] 25 Dec, 2012 [facility] [address] [id number] [address] [place] [address], [place] [address] 16 Dec, 2012 [facility] [address] [id number] [address] [place] [address], [place] [address] 10 Dec, 2012 [facility] [address] [id number] [address] [place] [address], [place] [address] 05 Dec, 2012 [facility] [address] [id number] [address] [place] [address], [place] [address] Nov, [facility] [address] [id number] [address] [place] [address], [place] [address] Nov, [facility] [address] [id number] [address] [place] [address], [place] [address] Nov, [facility] [address] [id number] [address] [place] [address], [place] [address] Nov, [facility] [address] [id number] [address] [place] [address], [place] [address] Nov, [facility] [address] [id number] [address] [place] [address], [place] [address] Nov, [facility] [address] [id number] [address] [place] [address], [place] [address] Nov, [facility] [address] [id number] [address] [place] [address], [place] [address] Oct, [facility] [address] [id number] [address] [place] [address], [place] [address] Oct, [facility] [address] [id number] [address] [place] [address], [place] [address] Oct, [facility] [address] [id number] [address] [place] [address], [place] [address] Oct, [facility] [address] [id number] [address] [place] [address], [place] [address] Oct, [facility] [address] [id number] [address] [place] [address], [place] [address] Oct, [facility] [address] [id number] [address] [place] [address], [place] [address] Oct, [facility] [address] [id number] [address] [place] [address], [place] [address] Oct, [facility] [address] [id number] [address] [place] [address], [place] [address] Sep, Suleiman PEREZ [address] [id number] COFFJOSE [place] [id number] August, [facility] [address] [id number] [address] [place] [address], [place] [address] August, [facility] [address] [id number] [address] [place] [address], [place] [address] Jul, [facility] [address] [id number] [address] [place] [address], [place] [address] Jul, [facility] [address] [id number] [address] [place] [address], [place] [address] Jul, [facility] [address] [id number] [address] [place] [address], [place] [address] Jul, [facility] [address] [id number] [address] [place] [address], [place] [address] 18 Jul, 2012 [facility] [address] [id number] [address] [place] [address], [place] [address] 17 Jul, 2012 [facility] [address] [id number] [address] [place] [address], [place] [address] Jul, [facility] [address] [id number] [address] [place] [address], [place] [address] Jun, [facility] [address] [id number] [address] [place] [address], [place] [address] 18 Jun, 2012 [facility] [address] [id number] [address] [place] [address], [place] [address] Jun, [facility] [address] [id number] [address] [place] [address], [place] [address] 04 Jun, 2012 [facility] [address] [id number] [address] [place] [address], [place] [address] 04 Jun, 2012 [facility] [address] [id number] [address] [place] [address], [place] [address] 19 May, 2012 [facility] [address] [id number] [address] [place] [address], [place] [address] 18 May, 2012 [facility] [address] [id number] [address] [place] [address], [place] [address] 04 May, 2012 [facility] [address] [id number] [address] [place] [address], [place] [address] 15 Apr, 2012 [facility] [address] [id number] [address] [place] [address], [place] [address] 14 Apr, 2012 [facility] [address] [id number] [address] [place] [address], [place] [address] 07 Apr, 2012 [facility] [address] [id number] [address] [place] [address], [place] [address] 31 Mar, 2012 [facility] [address] [id number] [address] [place] [address], [place] [address] 31 Mar, 2012 [facility] [address] [id number] [address] [place] [address], [place] [address] Mar, [facility] [address] [id number] [address] [place] [address], [place] [address] Mar, [facility] [address] [id number] [address] [place] [address], [place] [address] 10 Mar, 2012 [facility] [address] [id number] [address] [place] [address], [place] [id number] 10 Mar, 2012 [facility] [address] [id number] [address] [place] [address], [place] [address] Feb, [facility] [address] [id number] [address] [place] [address], [place] [address] Feb, [facility] [address] [id number] [address] [place] [address], [place] [address] Jan, [facility] [address] [id number] [address] [place] [address], [place] [address] Jan, [facility] [address] [id number] [address] [place] [address], [place] [address] Dec, [facility] [address] [id number] [address] [place] [address], [place] [address] Nov, [facility] [address] [id number] [address] [place] [address], [place] [address] Nov, [facility] [address] [id number] [address] [place] [address], [place] [address] Nov, [facility] [address] [id number] [address] [place] [address], [place] [address] Nov, [facility] [address] [id number] [address] [place] [address], [place] [address] Oct, [facility] [address] [id number] [address] [place] [address], [place] [address] Oct, [facility] [address] [id number] [address] [place] [address], [place] [id number] Oct, [facility] [address] [id number] [address] [place] [address], [place] [address] Sep, [facility] [address] [id number] [address] [place] [address], [place] [address] Sep, [facility] [address] [id number] [address] [place] [address], [place] [address] Sep, [facility] [address] [id number] [address] [place] [address], [place] [address] August, [facility] [address] [id number] [address] [place] [address], [place] [address] August, [facility] [address] [id number] [address] [place] [address], [place] [address] Jul, [facility] [address] [id number] [address] [place] [address], [place] [id number] Jul, [facility] [address] [id number] [address] [place] [address], [place] [address] Jul, [facility] [address] [id number] [address] [place] [address], [place] [address] Jul, [facility] [address] [id number] [address] [place] [address], [place] [address] Jun, [facility] [address] [id number] [address] [place] [address], [place] [address] May, [facility] [address] [id number] [address] [place] [address], [place] [address] Apr, [facility] [address] [id number] [address] [place] [address], [place] [address] Apr, [facility] [address] [id number] [address] [place] [address], [place] [address] Apr, [facility] [address] [id number] [address] [place] [address], [place] [address] Apr, [facility] [address] [id number] [address] [place] [address], [place] [address] Apr, [facility] [address] [id number] [address] [place] [address], [place] [address] Apr, [facility] [address] [id number] [address] [place] [address], [place] [address] Mar, [facility] [address] [id number] [address] [place] [address], [place] [address] Mar, [facility] [address] [id number] [address] [place] [address], [place] [id number] 29 Feb, 2011 [facility] [address] [id number] [address] [place] [address], [place] [address] Feb, [facility] [address] [id number] [address] [place] [address], [place] [id number] 17 Feb, 2011 [facility] [address] [id number] [address] [place] [address], [place] [id number] 09 Feb, 2011 [facility] [address] [id number] [address] [place] [address], [place] [address] Jan, [facility] [address] [id number] [address] [place] [address], [place] [id number] 18 Jan, 2011 [facility] [address] [id number] [address] [place] [address], [place] [address] Jan, [facility] [address] [id number] [address] [place] [address], [place] [address] Jan, [facility] [address] [id number] [address] [place] [address], [place] [address] Nov, [facility] [address] [id number] [address] [place] [address], [place] [address] Mar, [facility] [address] [id number] [address] [place] [address], [place] [address] Mar, [facility] [address] [id number] [address] [place] [address], [place] [address] 30 Feb, 2010 [facility] [address] [id number] [address] [place] [address], [place] [address] 15 Feb, 2010 [facility] [address] [id number] [address] [place] [address], [place] [address] Jan, [facility] [address] [id number] [address] [place] [address], [place] [address] Jan, [facility] [address] [id number] [address] [place] [address], [place] [phone] 15 Sep, 2009 [facility] [address] [id number] [address] [place] [phone] 16 May, 2009 [facility] [address] [id number] [address] [place] [phone] Apr, [facility] [address] [id number] [address] [place] [phone] Mar, [facility] [address] [id number] [address] [place] [phone] Feb, [facility] [address] [id number] [address] [place] [phone] Feb, [facility] [address] [id number] [address] [place] [phone] Feb, [facility] [address] [id number] [address] [place] [phone] Jan, [facility] [address] [id number] [address] [place] [phone] Jan, [facility] [address] [id number] [address] [place] [phone] Jan, [facility] [address] [id number] [address] [place] [phone] Jan, [facility] [address] [id number] [address] [place] [phone] August, IMMUNIZATIONS No Known Immunizations SOCIAL HISTORY [...] age 6 Hospitalization History surgery Hospitalization History [facility], [place] tie treatment few times for BH
--- OUTSIDE RECORDS SUMMARY | 2019-11-05 08:14 | XMS REPORT | Continuity of Care Document ---
Demographics Preferred Language Unknown Marital Status Unknown Gnosticism Affiliation Unknown Race Unknown Ethnic Group Unknown Author Organization Unknown Address Unknown Phone Unavailable Allergies Active Description Code Type Severity Reaction Onset Reported/Identified Relationship to Patient Clinical Status Yes No Known Drug Allergies [id number] Drug Allergy Unknown N/A 10/29/2019 Medications There is no data. Problems Date [...] N 317 MILD MENTAL RETARDATION 01/07/2008 KATTY HEATING [employer] VENTILATING TENDER, JEET S 298.9 P PSYCHOSIS NOS 01/07/2008 KATTY HEATING AND VENTILATING TENDER, JEET S 311 MO DEPRESSIVE DISORDER NOS 01/07/2008 KATTY HEATING AND VENTILATING TENDER, JETE S 312.30 I IMPULSE CONTROL DISORDER NOS 01/07/2008 KATTY HEATING AND VENTILATING TENDER, JEET S 317 MILD MENTAL RETARDATION 01/07/2008 KATTY HEATING AND VENTILATING TENDER, JEET S 298.9 P PSYCHOSIS NOS 01/07/2008 KATTY HEATING AND VENTILATING TENDER, JEET S 311 MO DEPRESSIVE DISORDER NOS 01/07/2008 KATTY HEATING AND VENTILATING TENDER, JEET S 312.30 I IMPULSE CONTROL DISORDER [...] S 317 MILD MENTAL RETARDATION 01/07/2008 KATTY HEATING AND VENTILATING TENDER, JEET S 298.9 P PSYCHOSIS NOS 01/07/2008 KATTY HEATING AND VENTILATING TENDER, JEET S 311 MO DEPRESSIVE DISORDER NOS 01/07/2008 KATTY HEATING AND VENTILATING TENDER, JEET S 312.30 I IMPULSE CONTROL DISORDER NOS 01/07/2008 KATTY HEATING AND VENTILATING TENDER, JEET S 317 MILD MENTAL RETARDATION 01/07/2008 WHITE DDS, PAYTON D 29 8.9 P PSYCHOSIS NOS 01/07/2008 WHITE DDS, PAYTON D 31 1 MO DEPRESSIVE DISORDER NOS 01/07/2008 WHITE DDS, PAYTON D 312.30 I IMPULSE CONTROL DISORDER NOS 01/07/2008 WHITE DDS, PAYTON D 31 7 MILD MENTAL RETARDATION 01/07/2008 ARCINIEGA HEATING AND VENTILATING TENDERDAVID Villalobos 298.9 P PSYCHOSIS NOS 01/07/2008 ARCINIEGA HEATING AND VENTILATING TENDERDAVID 311 MO DEPRESSIVE DISORDER NOS 01/07/2008 ARCINIEGA HEATING AND VENTILATING TENDERDAVID 312.30 I IMPULSE CONTROL DISORDER NOS 01/07/2008 ARCINIEGA DAVID HOLLAND 317 MILD MENTAL RETARDATION 01/07/2008 WHITE DDS, MEERA J 29 8.9 P PSYCHOSIS NOS 01/07/2008 WHITE DDS, MEERA J 31 1 MO DEPRESSIVE DISORDER NOS 01/07/2008 WHITE DDS, MEERA J 312.30 I IMPULSE CONTROL DISORDER NOS 01/07/2008 WHITE DDS, MEERA J 31 7 MILD MENTAL RETARDATION 01/07/2008 KATTY HEATING AND VENTILATING TENDER, JEET S 298.9 P PSYCHOSIS NOS 01/07/2008 KATTY HEATING AND VENTILATING TENDER, JEET S 311 MO DEPRESSIVE DISORDER NOS 01/07/2008 KATTY HEATING AND VENTILATING TENDER, JEET S 312.30 I IMPULSE CONTROL DISORDER NOS 01/07/2008 KATTY HEATING AND VENTILATING TENDER, JEET S 317 MILD MENTAL RETARDATION 01/07/2008 KATTY HEATING AND VENTILATING TENDER, JEET S 298.9 P PSYCHOSIS NOS 01/07/2008 KATTY HEATING AND VENTILATING TENDER, JEET S 311 MO DEPRESSIVE DISORDER NOS 01/07/2008 KATTY HEATING AND VENTILATING TENDER, JEET S 312.30 I IMPULSE CONTROL DISORDER NOS 01/07/2008 KATTY HEATING AND VENTILATING TENDER, JEET S 317 MILD MENTAL RETARDATION 01/07/2008 [...] 31 7 MILD MENTAL RETARDATION 01/07/2008 [employer] HEATING [employer] VENTILATING TENDER, DAVID PIERRE 298.9 P PSYCHOSIS NOS 01/07/2008 ARCINIE[employer] HEATING AND VENTILATING TENDER, DAVID IGNACIO 311 MO DEPRESSIVE DISORDER NOS 01/07/2008 [employer]IE[employer] HEATING AND VENTILATING TENDER, DAVID IGNACIO 312.30 I IMPULSE CONTROL DISORDER NOS 01/07/2008 [employer]IE[employer] HEATING AND VENTILATING TENDER, DAVID DANIELSONH 317 MILD MENTAL RETARDATION 01/07/2008 KATTY HEATING AND VENTILATING TENDER, JEET S 298.9 P PSYCHOSIS NOS 01/07/2008 KATTY HEATING AND VENTILATING TENDER, JEET S 311 MO DEPRESSIVE DISORDER NOS 01/07/2008 KATTY HEATING AND VENTILATING TENDER, JEET S 312.30 I IMPULSE CONTROL DISORDER NOS 01/07/2008 KATTY HEATING AND VENTILATING TENDER, JEET S 317 MILD MENTAL RETARDATION 01/07/2008 AURY CNP, VIRIDIANA M 298.9 P PSYCHOSIS NOS 01/07/2008 AURY CNP, VIRIDIANA M 3 11 MO DEPRESSIVE DISORDER NOS 01/07/2008 AURY CNP, VIRIDIANA M 312.30 I IMPULSE CONTROL DISORDER NOS 01/07/2008 AURY CNPJOSE JUANVIRIDIANA M 3 17 MILD MENTAL RETARDATION 01/07/2008 AURY CNPJOSE JUANVIRIDIANA M 298.9 P PSYCHOSIS NOS 01/07/2008 AURY CNP, VIRIDIANA M 3 11 MO DEPRESSIVE DISORDER NOS 01/07/2008 AURY CNP, VIRIDIANA M 312.30 I IMPULSE CONTROL DISORDER NOS 01/07/2008 AURY CNP, VIRIDIANA M 3 17 MILD MENTAL RETARDATION [...] ARORAN, JEET S 530.81 Gerd 02/03/2008 AURY CNP, VIRIDIANA M 250.00 DIABETES MELLITUS 02/03/2008 AURY CNP, VIRIDIANA M 530.81 Gerd 02/03/2008 AURY CNP, VIRIDIANA M 250.00 DIABETES MELLITUS 02/03/2008 AURY CNP, VIRIDIANA M 530.81 Gerd 02/12/2008 272.0 HYPERCHOLESTEROLEMIA [...] JEET S 272.0 HYPERCHOLESTEROLEMIA PURE 02/12/2008 K[employer] HEATING [employer] VENTILATING TENDER, EJET S V58.69 LONG-TERM (CURRENT) USE OF OTHER [...] (CURRENT) USE OF OTHER MEDICATIONS 02/12/2008 [employer]INIE[employer] HEATING AND VENTILATING TENDERDAVID Villalobos 272.0 HYPERCHOLESTEROLEMIA PURE 02/12/2008 DEMIAN HEATING AND VENTILATING TENDERDAVID V58.69 LONG-TERM (CURRENT) USE OF OTHER MEDICATIONS 02/12/2008 KEVIN ALANIZ APRNA S 272.0 HYPERCHOLESTEROLEMIA PURE 02/12/2008 GUILLERMO ALANIZ APRNNDA S V58.69 LONG-TERM (CURRENT) USE OF OTHER MEDICATIONS 02/12/2008 VIRIDIANA CEBALLOS M 272.0 HYPERCHOLESTEROLEMIA PURE 02/12/2008 VIRIDIANA CEBALLOS M V58.69 LONG-TERM (CURRENT) USE OF OTHER MEDICATIONS 02/12/2008 AURY CNPVIRIDIANA M 272.0 HYPERCHOLESTEROLEMIA PURE 02/12/2008 JOSE JUAN [...] ARORANDAVID 250.02 Diabetes Ii Uncontrolled 06/08/2008 DEMIAN HEATING AND VENTILATING TENDERDAVID 788.30 INCONTINENCE ENURESOS/URINARY 06/08/2008 JEET ALANIZ APRN [...] IGNACIO 315.31 EXPRESSIVE LANGUAGE DISORDER 07/07/2008 KATTY HEATING AND VENTILATING TENDER, JEET S 307.6 EI ENURESIS 07/07/2008 KATTY ARORAN, JEET S 315.31 EXPRESSIVE LANGUAGE DISORDER 07/07/2008 AURY CNP, VIRIDIANA M 307.6 EI ENURESIS 07/07/2008 AURY CNP, VIRIDIANA M 315.31 EXPRESSIVE LANGUAGE DISORDER 07/07/2008 AURY CNP, VIRIDIANA M 307.6 EI ENURESIS 07/07/2008 AURY CNP, VIRIDIANA M 315.31 EXPRESSIVE LANGUAGE DISORDER 08/10/2008 [...] Respiratory Infections Of Unspecified Site 08/10/2008 AURY CNP, VIRIDIANA M 465.9 Acute Upper Respiratory Infections Of Unspecified Site 08/10/2008 AURY CNP, VIRIDIANA M 465.9 Acute Upper Respiratory Infections [...] ADVERSE EFFECTS IN THERAPEUTIC USE 02/10/2009 AURY VIIRDIANA KAUR 995.20 UNSPECIFIED ADVERSE EFFECT OF UNSPECIFIE [...] N 789.07 Abdominal Pain, Generalized 05/10/2009 K[employer] HEATING AND VENTILATING TENDER, JEET S 296.90 MO MOOD DIS NOS 05/10/2009 KATTY HEATING AND VENTILATING TENDER, JEET S 789.07 Abdominal Pain, Generalized 05/10/2009 KATTY HEATING AND VENTILATING TENDER, JEET S 296.90 MO MOOD DIS NOS 05/10/2009 KATTY HEATING AND VENTILATING TENDER, JEET S 789.07 Abdominal Pain, Generalized 05/10/2009 [...] 789 .07 Abdominal Pain, Generalized 05/10/2009 KATTY HEATING AND VENTILATING TENDER, JEET S 296.90 MO MOOD DIS NOS 05/10/2009 KATTY HEATING AND VENTILATING TENDER, JEET S 789.07 Abdominal Pain, Generalized 05/10/2009 KATTY HEATING AND VENTILATING TENDER, JEET S 296.90 MO MOOD DIS NOS 05/10/2009 KATTY HEATING AND VENTILATING TENDER, JEET S 789.07 Abdominal Pain, Generalized 05/10/2009 WHITE DDS, PAYTON D 296.90 MO MOOD DIS NOS 05/10/2009 WHITE DDS, PAYTON D 789.07 Abdominal Pain, Generalized 05/10/2009 [employer]IE[employer] HEATING [employer] VENTILATING TENDER, DAVID IGNACIO 296.90 MO MOOD DIS NOS 05/10/2009 ARCINIEGA HEATING AND VENTILATING TENDER, DAVID IGNACIO 789.07 Abdominal Pain, Generalized 05/10/2009 WHITE DDS, MEERA J 296.90 MO MOOD DIS NOS 05/10/2009 WHITE DDS, MEERA J 789.07 Abdominal Pain, Generalized 05/10/2009 KATTY HEATING AND VENTILATING TENDER, JEET S 296.90 MO MOOD DIS NOS 05/10/2009 KATTY HEATING AND VENTILATING TENDER, JEET S 789.07 Abdominal Pain, Generalized 05/10/2009 KATTY HEATING AND VENTILATING TENDER, JEET S 296.90 MO MOOD DIS NOS 05/10/2009 KATTY HEATING AND VENTILATING TENDER, JEET S 789.07 Abdominal Pain, Generalized 05/10/2009 WHITE DDS, MEERA J 296.90 MO MOOD DIS NOS 05/10/2009 WHITE DDS, MEERA J 789.07 Abdominal Pain, Generalized 05/10/2009 WHITE DDS, MEERA J 296.90 MO MOOD DIS NOS 05/10/2009 WHITE DDS, MEERA J 789.07 Abdominal Pain, Generalized 05/10/2009 ARCINIE[employer] HEATING AND VENTILATING TENDER DAVID IGNACIO 296.90 MO MOOD DIS NOS 05/10/2009 ARCINIEGA HEATING AND VENTILATING TENDER, DAVID IGNACIO 789.07 Abdominal Pain, Generalized 05/10/2009 KATTY HEATING AND VENTILATING TENDER, JEET S 296.90 MO MOOD DIS NOS 05/10/2009 KATTY HEATING AND VENTILATING TENDER, JEET S 789.07 Abdominal Pain, Generalized 05/10/2009 VIRIDIANA CEBALLOS 296.90 MO MOOD DIS NOS 05/10/2009 VIRIDIANA CEBALLOS M 789.07 Abdominal Pain, Generalized 05/10/2009 VIRIDIANA CEBALLOS M 296.90 MO MOOD DIS NOS 05/10/2009 VIRIDIANA CEBALLOS 789.07 Abdominal Pain, Generalized 10/04/2009 786.2 cough 10/04/2009 786.2 cough 10/04/2009 CASTRO DDS, DAMIÁN N 786.2 cough 10/04/2009 KATTY HEATING AND VENTILATING TENDER, JEET S 786.2 cough 10/04/2009 KATTY HEATING AND VENTILATING TENDER, JEET S 786.2 cough 10/04/2009 786.2 cough 10/04/2009 786.2 cough 10/04/2009 786.2 cough 10/04/2009 786.2 cough 10/04/2009 786.2 cough 10/04/2009 786.2 cough 10/04/2009 JULISA PUGA DO 786 .2 cough 10/04/2009 KATTY HEATING AND VENTILATING TENDER, JEET S 786.2 cough 10/04/2009 KATTY HEATING AND VENTILATING TENDER, JEET S 786.2 cough 10/04/2009 WHITE DDS, PAYTON D 78 6.2 cough 10/04/2009 DAVID ARCINIEGA APRN 786.2 cough 10/04/2009 PAT ZAPATAS, MEERA J 78 6.2 cough 10/04/2009 KATTY HEATING AND VENTILATING TENDER, JEET S 786.2 cough 10/04/2009 KATTY HEATING AND VENTILATING TENDER, JEET S 786.2 cough 10/04/2009 WHITE JODISESTRELLITAON J 78 6.2 cough 10/04/2009 WHITE DDSESTRELLITAON J 78 6.2 cough 10/04/2009 DAVID ARCINIEGA APRN 786.2 cough 10/04/2009 KATTY HEATING AND VENTILATING TENDER, JEET S 786.2 cough 10/04/2009 VIRIDIANA CEBALLOS [...] (3 YRS AND ABOVE, IM) 02/28/2011 KATTY HEATING AND VENTILATING TENDER, JEET S 427.9 Cardiac Dysrhythmia Unspecified 02/28/2011 KATTY HEATING AND VENTILATING TENDER, JEET S 786.50 Unspecified Chest Pain 02/28/2011 KATTY HEATING AND VENTILATING TENDER, JEET S V04.81 FLU DX (3 YRS AND ABOVE, IM) 02/28/2011 KATTY HEATING AND VENTILATING TENDER, JEET S 427.9 Cardiac Dysrhythmia Unspecified 02/28/2011 KATTY HEATING AND VENTILATING TENDER, JEET S 786.50 Unspecified Chest Pain 02/28/2011 KATTY HEATING AND VENTILATING TENDER, JEET S V04.81 FLU DX (3 YRS [...] (3 YRS AND ABOVE, IM) 02/28/2011 KATTY HEATING AND VENTILATING TENDER JEET S 427.9 Cardiac Dysrhythmia Unspecified 02/28/2011 KATTY HEATING AND VENTILATING TENDER, JEET S 786.50 Unspecified Chest Pain 02/28/2011 KATTY HEATING AND VENTILATING TENDER JEET S V04.81 FLU DX (3 YRS AND ABOVE, IM) 02/28/2011 KATTY HEATING AND VENTILATING TENDER JEET S 427.9 Cardiac Dysrhythmia Unspecified 02/28/2011 KATTY HEATING AND VENTILATING TENDER JEET S 786.50 Unspecified Chest Pain 02/28/2011 KATTY HEATING AND VENTILATING TENDER, JEET S V04.81 FLU DX (3 YRS AND ABOVE, IM) 02/28/2011 WHITE DDS, PAYTON D 42 7.9 Cardiac Dysrhythmia Unspecified 02/28/2011 WHITE DDS, PAYTON D 786.50 Unspecified Chest Pain 02/28/2011 WHITE DDS, PAYTON D V04.81 FLU DX (3 YRS AND ABOVE, IM) 02/28/2011 DEMIAN HOLLAND DAVID DANIELSONH 427.9 Cardiac Dysrhythmia Unspecified 02/28/2011 ARCINIEGA HEATING AND VENTILATING TENDER DAVID DANIELSONH 786.50 Unspecified Chest Pain 02/28/2011 ARCINIEGA HEATING AND VENTILATING TENDER, DAVID PIERRE V04.81 FLU DX (3 YRS AND ABOVE, IM) 02/28/2011 WHITE DDSMEERA J 42 7.9 Cardiac Dysrhythmia Unspecified 02/28/2011 WHITE DDSMEERA J 786.50 Unspecified Chest Pain 02/28/2011 WHITE DDSESTRELLITAON J V04.81 FLU DX (3 YRS AND ABOVE, IM) 02/28/2011 KATTY HOLLAND JEET S 427.9 Cardiac Dysrhythmia Unspecified 02/28/2011 KATTY HEATING AND VENTILATING TENDER, JEET S 786.50 Unspecified Chest Pain 02/28/2011 KATTY HEATING AND VENTILATING TENDER, JEET S V04.81 FLU DX (3 YRS AND ABOVE, IM) 02/28/2011 KATTY HEATING AND VENTILATING TENDER, JEET S 427.9 Cardiac Dysrhythmia Unspecified 02/28/2011 KATTY HEATING AND VENTILATING TENDER, JEET S 786.50 Unspecified Chest Pain 02/28/2011 KATTY HEATING AND VENTILATING TENDER, JEET S V04.81 FLU DX (3 YRS [...] ARCINIEGA APRN 427.9 Cardiac Dysrhythmia Unspecified 02/28/2011 DAVDI ARCINIEGA APRN 786.50 Unspecified Chest Pain 02/28/2011 DAVID ARCINIEGA APRN V04.81 FLU DX (3 YRS AND ABOVE, IM) 02/28/2011 KATTY ARORAN, JEET S 427.9 Cardiac Dysrhythmia Unspecified 02/28/2011 KATTY ARORAN, JEET S 786.50 Unspecified Chest Pain 02/28/2011 KATTY HEATING AND VENTILATING TENDER, JEET S V04.81 FLU DX (3 YRS AND ABOVE, IM) 02/28/2011 VIRIDAINA CEBALLOS 427.9 Cardiac Dysrhythmia Unspecified 02/28/2011 VIRIDIANA ECBALLOS M 786.50 Unspecified Chest Pain 02/28/2011 VIRIDIANA [...] AND GASTRODUODENITIS (WITHOUT HE MORRHAGE) 04/28/2012 VIRIDIANA CEABLLOS V70.0 EXAM - ROUTINE H&P 04/28/2012 VIRIDIANA [...] MONONEURITIS OF UNSPECIFIED SITE 08/10/2013 VIRIDIANA CEBALLOS M 327.23 OBSTRUCTIVE SLEEP APNEA (ADULT) (PEDIATRIC) 08/10/2013 VIRIDIANA CEBALLOS M 355.9 MONONEURITIS OF UNSPECIFIED SITE 08/12/2014 VIRIDIANA CEBALLOS M 788.1 DYSURIA 09/25/2019 VIEYRA DO, AL D Ot Z01.818 ENCOUNTER FOR OTHER PREPROCEDURAL EXAMIN 09/25/2019 VIEYRA DO, AL D Ot Z11. 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 5 HYPERLIPIDEMIA, UNSPECIFIED 09/29/2019 VIEYRA DO, AL D Ot F79 UNSPECIFIED INTELLECTUAL DISABILITIES 09/29/2019 VIEYRA DO, AL D Ot I10 ESSENTIAL (PRIMARY) HYPERTENSION 09/29/2019 VIEYRA DO, AL D Ot J45.909 UNSPECIFIED ASTHMA, UNCOMPLICATED 09/29/2019 VIEYRA DO, AL D Ot Z12. 11 ENCOUNTER FOR SCREENING FOR MALIGNANT NE 09/29/2019 VIEYRA DO, LA D Ot Z79. 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 5 HYPERLIPIDEMIA, UNSPECIFIED 10/02/2019 VIEYRA DO, AL D Ot F79 UNSPECIFIED INTELLECTUAL DISABILITIES 10/02/2019 VIEYRA DO, AL D Ot I10 ESSENTIAL (PRIMARY) HYPERTENSION 10/02/2019 VIEYRA DO, AL D Ot J45.909 UNSPECIFIED ASTHMA, UNCOMPLICATED 10/02/2019 VIEYRA DO, AL D Ot Z12. 11 ENCOUNTER FOR SCREENING FOR MALIGNANT NE 10/02/2019 VIEYRA DO, AL D Ot Z79. 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 5 HYPERLIPIDEMIA, UNSPECIFIED 10/02/2019 AL VIEYRA DO Ot F79 UNSPECIFIED INTELLECTUAL DISABILITIES 10/02/2019 AL VIEYRA DO Ot I10 ESSENTIAL (PRIMARY) HYPERTENSION 10/02/2019 VIEYRA AL HERRON Ot J45.909 UNSPECIFIED ASTHMA, UNCOMPLICATED 10/02/2019 AL VIEYRA DO Ot Z12. 11 ENCOUNTER FOR SCREENING FOR MALIGNANT NE 10/02/2019 AL VIEYRA DO Ot Z79. 84 [facility] (CURRENT) USE OF ORAL HYPOGLYC 10/02/2019 VIEYRAAL DONALD DO Ot Z79.899 OTHER SEALS ENGRAVER (CURRENT) DRUG THERAPY Procedures Code Description [place] [address] PSYC H PHARM MGMT 04/17/2012 19308 A1C (IN-HOUSE) 04/28/2012 02294 UA L HAYDEN DIP 04/28/2012 43068 MICR O ALBUMIN-IN HOUSE 04/28/2012 17583 ROUT INE VENIPUNCTURE 08/05/2012 00905 ROUT INE VENIPUNCTURE 08/05/2012 31990 CBC 08/05/2012 42740 CBC 08/05/2012 68137 LIVE R PANEL (LFT) 08/05/2012 87295 LIVE R PANEL (LFT) 08/05/2012 64470 LIPI D PANEL 08/05/2012 23387 LIPI D PANEL 08/05/2012 1176812 GF R CALC (RESULT ONLY) 08/05/2012 6407061 GF R CALC (RESULT ONLY) 08/05/2012 87275 VALP ROIC ACID / DEPAKOTE 08/05/2012 76052 VALP ROIC ACID / DEPAKOTE 08/05/2012 39453 DAVID L PROFILE 08/05/2012 02248 DAVID L PROFILE 08/05/2012 65089 FOLATE 08/06/2012 27853 FOLATE 08/06/2012 93692 HOMO CYSTINE 08/07/2012 71588 HOMO CYSTINE 08/07/2012 42782 JAYNE MIN D 25-HYDROXY (D2,D3, TOTAL) 08/11/2012 25411 JAYNE MIN D 25-HYDROXY (D2,D3, TOTAL) 08/11/2012 56122 ROUT INE VENIPUNCTURE 08/14/2012 34370 UA W / CULTURE IF INDICATED 08/14/2012 60346 PSA TOTAL 08/14/2012 64409 SLEE P STUDY 11/26/2012 42285 A1C (IN-HOUSE) 02/12/2013 77900 JAYNE MIN D 25-HYDROXY (D2,D3, TOTAL) 07/29/2013 01661 A1C (IN-HOUSE) 08/10/2013 34789 UA L HAYDEN DIP 08/12/2014 16065 CULT URE URINE 08/14/2014 Results Test Result [...] 7-25 CREATININE 1.25 mg/dL 0.70-1.33 eGFR NON-AFR. [place] 65 mL/min/1.73m2 > OR = 60 eGFR [...] SEE NOTE NRG Coronavirus SARS-CoV-2 SO 2018 0 13:08 Coronavirus Ab [Units/volume] in Serum Negative Negative Coronavirus SARS-CoV-2 SO 2018 0 08:14 Coronavirus Ab [Units/volume] in Serum Negative Negative Encounters ACCT No. Visit Date/Time Discharge Status Pt. Type Provider Facility Loc./Unit Complaint [id number] 10/03/2016 08:49:00 Document Registration [id number] 11/02/2019 05:43:00 020 10:38:00 DIS Outpatient AL VIEYRA DO Via [facility] PREOP LOCAL [facility] DYSPLA ODESSA [id number] 09/29/2019 09:18:00 020 11:40:00 DIS Outpatient AL VIEYRA DO [facility] ENDO SCREENING [id number] 09/25/2019 08:02:00 020 14:01:00 DIS Outpatient AL VIEYRA DO [facility] PREOP COLONOSCOPY [id number] 11/24/2012 21:00:00 013 06:55:00 DIS Outpatient [id number] 11/05/2019 09:00:00 P EN Preadmit AL VIEYRA DO LOCAL [facility] DYSPLASIA [id number] 08/13/2014 08:00:00 08/13/2014 23:59: 59 CLS Outpatient VIRIDIANA CEBALLOS [id number] 07/23/2014 10:29:00 07/23/2014 23:59: 59 CLS Outpatient VIRIDIANA CEBALLOS [id number] 05/12/2014 14:35:00 05/12/2014 23:59: 59 CLS Outpatient JEET ALANIZ APRN [id number] 11/25/2013 14:26:00 11/25/2013 23:59: 59 CLS Outpatient DEMIAN HOLLAND DAVID PIERRE [id number] 11/03/2013 07:53:00 11/03/2013 23:59: 59 CLS Outpatient MEERA STEWART DDS [id number] 09/29/2013 08:54:00 09/29/2013 23:59: 59 CLS Outpatient MEERA STEWART DDS [id number] 08/10/2013 12:06:00 08/10/2013 23:59: 59 CLS Outpatient JEET ALANIZ APRN [id number] 08/10/2013 12:06:00 08/10/2013 23:59: 59 CLS Outpatient JEET ALANIZ APRN [id number] 07/27/2013 09:15:00 07/27/2013 23:59: 59 CLS Outpatient MEERA STEWART DDS [id number] 07/23/2013 17:42:00 07/23/2013 23:59: 59 CLS Outpatient DAVID ARCINIEGA APRN [id number] 06/10/2013 11:12:00 06/10/2013 23:59: 59 CLS Outpatient PAYTON STEWART DDS [id number] 02/12/2013 13:24:00 02/12/2013 23:59: 59 CLS Outpatient JEET ALANIZ APRN S [id number] 02/12/2013 13:24:00 02/12/2013 23:59: 59 CLS Outpatient JEET ALANIZ APRN S [id number] 01/05/2013 11:24:00 01/05/2013 23:59: 59 CLS Outpatient JULISA PUGA DO [id number] 04/28/2012 10:05:00 04/28/2012 23:59: 59 CLS Outpatient JEET ALANIZ APRN [id number] 04/28/2012 10:05:00 04/28/2012 23:59: 59 CLS Outpatient JEET ALANIZ APRN [id number] 04/10/2012 09:58:00 04/10/2012 23:59: 59 CLS Outpatient DAMIÁN ERAZO DDS Griselda [id number] 03/31/2012 12:06:00 03/31/2012 23:59: 59 CLS Outpatient [id number] 11/19/2011 12:36:00 11/19/2011 23:59:5 9 CLS Outpatient [id number] 10/20/2012 09:05:00 Document Registration [id number] 10/20/2012 09:05:00 Document Registration [id number] 08/14/2012 10:31:00 Document Registration [id number] 08/14/2012 10:31:00 Document Registration [id number] 08/05/2012 12:00:00 Document Registration [id number] 08/05/2012 12:00:00 Document Registration [id number] 10/30/2019 10:15:00 10/30/2019 23:59:5 9 CLS Outpatient JEET ALANIZ APRN [facility] [id number] 06/24/2019 15:30:00 Document Registration [id number] 01/19/2019 08:40:00 Document Registration [id number] 01/15/2019 08:40:00 Document Registration [id number] 10/08/2017 08:20:00 Document Registration [id number] 05/29/2017 10:40:00 Document Registration
--- NOTE | 2019-11-05 09:00 | NUR ---
[facility] unable to produce certified letter of guardianship. pt cont to be unable to verbalize understanding of details of procedure or risks et benefits involved. 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 dr jeff levy's cancellation of procedure today, until legal consent is able to be obtained for anesthesia et procedure.
== END 2019-11-05 09:15 | disposition home or self-care (01) | DRG 395 ==
LOC: 4TH 07:29 → SURG 07:30
PROVIDERS: ADMIT Surgery; ATTEND Surgery
DX: D12.6 Benign neoplasm of colon, unspecified (principal); Z53.09 Procedure and treatment not carried out because of other contraindication

== ENCOUNTER 2019-11-24 13:54 | Outpatient (RCR) | payer MEDICAID ==
[~2019-11-24] VITALS: Ht 165 cm; Wt 85.0 kg
[~2019-11-24 13:54] MED LIST changes: +LOSA1TAB20 PO
== END 2019-11-24 13:57 | disposition home or self-care (01) ==
LOC: PREOP 13:54
PROVIDERS: ATTEND Surgery
DX: Z01.818 Encounter for other preprocedural examination (principal)

== ENCOUNTER 2019-11-26 06:05 | Inpatient (IN) | payer MEDICAID ==
[2019-11-26] VITALS (10 sets, daily range): BP systolic 116–144; BP diastolic 76–99
[~2019-11-26] VITALS: Ht 165 cm; Wt 85.0 kg
--- OUTSIDE RECORDS SUMMARY | 2019-11-26 06:14 | XMS REPORT ---
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 Active 11967864 Problem Hypertensive retinopathy of both eyes H35.033 Active 7715150 Problem Open-angle glaucoma of both eyes, unspecified glaucoma stage, unspecified open-angle glaucoma type H40.10X0 Acti ve 41726503 Problem Obstructive sleep apnea G47.33 Active 45768817 Problem Type 2 diabetes mellitus with complication E11.8 Active 35484227 Problem Intermittent explosive disorder in adult F63.81 Active 88210145 Problem Bipolar disorder, unspecified F31.9 Active 53869383 Problem Mild intellectual disability F70 A ctive 00129564 Problem Other specified urinary incontinence N39.498 Active 315112893 Problem Diabetes E11.9 Active 04667959 Problem Type 2 diabetes mellitus wit h diabetic neuropathy, unspecified whether retirement insulin use E11.40 Active 636836 863253261 Problem Essential hypertension I10 Active 16571994 Problem Reactive airway disease, mild intermittent, uncomplicated J45.20 Active 014091058 Problem Gastroesophageal reflux disease without esophagitis K21.9 Active 750805852 Problem Other diabetic neurological complication associated with type 2 diabetes mellitus E11.49 Active 863754980 Problem Neuropathy G62.9 Active 916390923 ALLERGIES No Information ENCOUNTERS Encounter Location Date Diagnosis [facility] [address] [facility] [id number] [address] [place] [id number] Jan, [facility] [address] [facility] [id number] [address] [place] [phone] Jan, [place] [address] [place] [id number] [address] [place] [phone] Dec, [place] [id number] [place] [address] Oct, Type 2 diabetes mellitus wit h complication E11.8 ; Abnormal colonoscopy R93.3 ; Tobacco abuse Z72.0 ; Weight loss R63.4 and Essential hypertension I10 [place] [address] [place] [id number] [address] [place] [address] Oct, [place] [address] [place] [id number] [address] [place] [id number] Oct, Callus of foot L84 ; Hyperhi drosis R61 ; Onychomycosis B35.1 and Tinea pedis of both feet B35.3 [place] [id number] [place] [phone] Sep, [place] [address] [place] [id number] [address] [place] [phone] Sep, [place] [id number] [place] [phone] Sep, [place] [address] [place] [id number] [address] [place] [address] Sep, Essential hypertension I10 [place] [id number] [address] [place] [address] August, Intermittent explosive disor salvatore in adult F63.81 ; Bipolar disorder, unspecified F31.9 and Mild intellectual disability F70 [place] [id number] [address] [place] [address] Jul, Type 2 diabetes mellitus wit h diabetic neuropathy, unspecified 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 gauger insulin use E11.40 and Colon cancer screening Z12.11 [place] [id number] [address] [place] [address] Jul, Type 2 diabetes mellitus wit h diabetic neuropathy, unspecified whether retirement insulin use E11.40 and Tinea pedis, unspecified laterality B35.3 [facility] [address] [facility] [id number] [address] [place] [id number] 10 Jun, 2019 [facility] [address] [facility] [id number] [address] [place] [phone] 10 Jun, 2019 [facility] [address] [facility] [id number] [address] [place] [id number] 04 Jun, 2019 Dysuria R30.0 [facility] [address] [facility] [id number] [address] [place] [id number] Jun, [facility] [address] [facility] [id number] [address] [place] [phone] 20 May, 2019 Influenza J11.1 [place] [address] [place] [id number] [address] [place] [address] 13 May, 2019 Intermittent explosive disor salvatore in adult F63.81 [facility] [address] [place] [id number] [address] [place] [address] 12 May, 2019 [facility] [address] [place] [id number] [address] [place] [id number] Apr, Intermittent explosive disor salvatore in adult F63.81 ; Bipolar disorder, unspecified F31.9 and Mild intellectual disability F70 [facility] [address] [place] [id number] [place] [id number] Apr, Oral health maintenance stat requiring routine preventive dental care K08.9 [facility] [address] [facility] [id number] [address] [place] [address] Apr, Type 2 diabetes mellitus wit h complication E11.8 ; History of test for hearing Z92.89 ; Colon cancer screening Z12.11 ; Other specified urinary incontinence N39.498 and Impacted cerumen, right ear H61.21 [facility] [address] [facility] [id number] [address] [place] [address] Apr, Onychomycosis B35.1 ; Other diabetic neurological complication associated with type 2 diabetes mellitus E11.49 and Tinea pedis of both feet B35.3 [facility] [address] [id number] [address] [place] [address] Feb, [facility] [address] [id number] [address] [place] [id number] Jan, [facility] [address] [id number] [address] [place] [address] Jan, [facility] [address] [id number] [address] [place] [id number] Jan, [facility] [address] [id number] [address] [place] [address] Jan, [facility] [address] [id number] [address] [place] [address] Jan, [facility] [address] [id number] [address] [place] [phone] Jan, [facility] [address] [id number] [address] [place] [id number] Jan, [facility] [address] [id number] [address] [place] [address] Jan, Anemia D64.9 [facility] [id number] [place] [phone] Jan, Dental examination Z01.20 an d Oral health maintenance status requiring routine preventive dental care K08.9 [facility] [address] [id number] [address] [place] [address] Jan, Onychomycosis B35.1 and Othe r diabetic neurological complication associated with type 2 diabetes mellitus E11.49 [facility] [address] [id number] [address] [place] [address] Jan, Anemia D64.9 [facility] [address] [id number] [address] [place] [address] Jan, [facility] [address] [facility] [id number] [address] [place] [address] Dec, Urinary tract infection with out hematuria, site unspecified N39.0 [facility] [address] [facility] [id number] [address] [place] [address] 30 Dec, 2018 Type 2 diabetes mellitus wit h complication E11.8 ; Urinary tract infection without hematuria, site unspecified N39.0 ; Impacted cerumen of both ears H61.23 ; Encounter for immunization Z23 and Hyponatremia E87.1 [facility] [address] [facility] [id number] [address] [place] [phone] Dec, Intermittent explosive disor salvatore in adult F63.81 ; Dysuria R30.0 ; Type 2 diabetes mellitus with complication E11.8 ; Bipolar disorder, unspecified F31.9 and Mild intellectual disability F70 [facility] [address] [facility] [id number] [address] [place] [address] Dec, Dysuria R30.0 [facility] [address] [facility] [id number] [address] [place] [address] Dec, Intermittent explosive disor salvatore in adult F63.81 ; Bipolar disorder, unspecified F31.9 and Mild intellectual disability F70 [facility] [address] [facility] [id number] [address] [place] [address] Nov, [facility] [address] [facility] [id number] [address] [place] [phone] Oct, [facility] [address] [place] [id number] [place] [phone] Oct, Oral health maintenance stat us requiring routine preventive dental care K08.9 [facility] [address] [facility] [id number] [address] [place] [address] August, Intermittent explosive disor salvatore in adult F63.81 ; Bipolar disorder, unspecified F31.9 and Mild intellectual disability F70 [facility] [address] [id number] [address] [place] [address] [id number] August, Dental caries K02.9 [facility] [address] [facility] [id number] [address] [place] [address] Jul, Onychomycosis B35.1 ; Other diabetic neurological complication associated with type 2 diabetes mellitus E11.49 and Tinea pedis of both feet B35.3 [facility] [address] [facility] [id number] [address] [place] [id number] Jul, Caries K02.9 [facility] [address] [facility] [id number] [address] [place] [address] Jul, Type 2 diabetes mellitus wit h complication E11.8 ; Tobacco abuse Z72.0 and Bipolar disorder, unspecified F31.9 [facility] [address] [facility] [id number] [address] [place] [phone] Jun, [facility] [address] [facility] [id number] [address] [place] [address] [id number] Jun, Dental examination Z01.20 an d Oral health maintenance status requiring routine preventive dental care K08.9 [facility] [address] [place] [id number] [address] [place] [address] May, Bilateral impacted cerumen H 61.23 [facility] [address] [place] [id number] [address] [place] [id number] Apr, Bipolar disorder, unspecifie d F31.9 ; Intermittent explosive disorder in adult F63.81 ; Type 2 diabetes mellitus with complication E11.8 ; Tobacco abuse Z72.0 and Colon cancer screening Z12.11 [facility] [address] [facility] [id number] [address] [place] [phone] Apr, Onychomycosis B35.1 and Othe r diabetic neurological complication associated with type 2 diabetes mellitus E11.49 [facility] [address] [place] [id number] [address] [place] [id number] Apr, Intermittent explosive disor salvatore in adult F63.81 ; Bipolar disorder, unspecified F31.9 and Mild intellectual disability F70 [facility] [address] [place] [id number] [address] [place] [address] Mar, Diabetes E11.9 [facility] [address] [facility] [id number] [address] [place] [id number] Jan, Encounter for immunization Z 23 [facility] [address] [facility] [id number] [address] [place] [id number] 12 Jan, 2018 Tinea pedis of both feet B35 .3 ; Other diabetic neurological complication associated with type 2 diabetes mellitus E11.49 and Onychomycosis B35.1 [facility] [address] [facility] [id number] [address] [place] [id number] Nov, Type 2 diabetes mellitus wit h complication E11.8 [place] [address] [facility] [id number] [address] [place] [address] Nov, [facility] [address] [place] [id number] [address] [place] [id number] Oct, Intermittent explosive disor salvatore in adult F63.81 ; Bipolar disorder, unspecified F31.9 and Mild intellectual disability F70 [facility] [address] [facility] [id number] [address] [place] [address] Oct, [facility] [address] [facility] [id number] [address] [place] [address] [id number] Oct, Dental examination Z01.20 [facility] [address] [place] [id number] [address] [place] [phone] Oct, Onychomycosis B35.1 and Othe r diabetic neurological complication associated with type 2 diabetes mellitus E11.49 [facility] [address] [facility] [id number] [address] [place] [id number] Sep, Type 2 diabetes mellitus wit h complication E11.8 and Colon cancer screening Z12.11 [facility] [address] [facility] [id number] [address] [place] [id number] Sep, Type 2 diabetes mellitus wit h complication E11.8 ; Colon cancer screening Z12.11 and Neuropathy G62.9 [facility] [address] [facility] [id number] [address] [place] [id number] August, Diabetes E11.9 [facility] [address] [id number] [address] [place] [address] [id number] Jul, Dental examination Z01.20 [facility] [address] [facility] [id number] [address] [place] [phone] May, Mild intellectual disability F70 [facility] [address] [facility] [id number] [address] [place] [address] May, Mild intellectual disability F70 ; High risk medication use Z79.899 ; Intermittent explosive disorder in adult F63.81 and Bipolar disorder, unspecified F31.9 [facility] [address] [facility] [id number] [address] [place] [id number] May, [facility] [address] [facility] [id number] [address] [place] [phone] May, [facility] [address] [facility] [id number] [address] [place] [id number] Apr, Type 2 diabetes mellitus wit h complication E11.8 ; Mild intellectual disability F70 ; Gastroesophageal reflux disease without esophagitis K21.9 ; Reactive airway disease, mild intermittent, uncomplicated J45.20 and Tobacco abuse Z72.0 [facility] [address] [facility] [id number] [address] [place] [address] Apr, High risk medication use Z79 .899 ; Mild intellectual disability F70 ; Intermittent explosive disorder in adult F63.81 and Bipolar disorder, unspecified F31.9 [facility] [address] [id number] [address] [place] [address] [id number] Mar, Encounter for dental exam an d cleaning w/o abnormal findings Z01.20 [facility] [address] [id number] [address] [place] [address] [id number] Mar, Dental examination Z01.20 [facility] [address] [facility] [id number] [address] [place] [phone] Jan, [facility] [address] [id number] [address] [place] [phone] Jan, [facility] [address] [id number] [address] [place] [id number] 10 Jan, 2017 Mild intellectual disability F70 ; Bipolar disorder, unspecified F31.9 and Intermittent explosive disorder in adult F63.81 [facility] [address] [id number] [address] [place] [id number] 02 Jan, 2017 Diabetes E11.9 [facility] [address] [id number] [address] [place] [address] [id number] 13 Dec, 2016 Encounter for dental examina tion and cleaning without abnormal findings Z01.20 [facility] [address] [id number] [address] [place] [id number] 12 Dec, 2016 Bipolar disorder, unspecifie d F31.9 ; Intermittent explosive disorder in adult F63.81 and Mild intellectual disability F70 [facility] [address] [id number] [address] [place] [id number] Nov, Diabetes E11.9 [facility] [address] [id number] [address] [place] [id number] Nov, [facility] [address] [id number] [address] [place] [address] Nov, Diabetes E11.9 and Colon can cer screening Z12.[id number] [place] [address] [id number] Sep, Dental examination Z01.20 [facility] [address] [id number] [address] [place] [address] [id number] Sep, Encounter for dental examina tion and cleaning without abnormal findings Z01.20 [facility] [address] [id number] [address] [place] [id number] 13 Sep, 2016 Bipolar disorder, unspecifie d F31.9 [facility] [address] [id number] [address] [place] [id number] Sep, Bipolar disorder, unspecifie d F31.9 [facility] [address] [id number] [address] [place] [id number] Jul, [facility] [address] [facility] [id number] [address] [place] [id number] 13 Jul, 2016 Type 2 diabetes mellitus wit h complication E11.8 [facility] [address] [id number] [address] [place] [address] [id number] 15 Jun, 2016 Encounter for dental examina tion and cleaning without abnormal findings Z01.20 [place] [address] [facility] [id number] [place] [address] [id number] Jun, Dental examination Z01.20 [facility] [address] [facility] [id number] [address] [place] [address] Apr, Sports physical Z02.5 [facility] [address] [facility] [id number] [address] [place] [id number] 14 Mar, 2016 Bipolar disorder, in partial remission, most recent episode manic F31.73 and Intermittent explosive disorder in adult F63.81 [facility] [address] [facility] [id number] [address] [place] [id number] 08 Mar, 2016 [facility] [address] [facility] [id number] [address] [place] [id number] 06 Mar, 2016 Diabetes E11.9 [facility] [address] [id number] [address] [place] [address] [id number] Feb, Encounter for dental examina tion and cleaning without abnormal findings Z01.20 [facility] [address] [facility] [id number] [address] [place] [id number] 22 Dec, 2015 Nocturnal hypoxemia G47.34 a nd Encounter for immunization Z23 [facility] [address] [facility] [id number] [address] [place] [id number] 15 Dec, 2015 [facility] [address] [facility] [id number] [address] [place] [id number] 12 Dec, 2015 [facility] [address] [facility] [id number] [address] [place] [id number] Dec, Bipolar disorder, unspecifie d F31.9 [facility] [address] [id number] [address] [place] [address] [id number] 13 Oct, 2015 Encounter for dental examina tion and cleaning without abnormal findings Z01.[address] [place] [address] [id number] 13 Oct, 2015 Dental examination Z01.20 [facility] [address] [facility] [id number] [address] [place] [id number] 07 Oct, 2015 Diabetes E11.9 [place] [address] [facility] [id number] [address] [place] [phone] Oct, Diabetes E11.9 ; Reactive ai rway disease, mild intermittent, uncomplicated J45.20 and Tobacco abuse Z72.0 [place] [address] [facility] [id number] [address] [place] [id number] Sep, Bipolar disorder, unspecifie d F31.9 and Depression F32.9 [place] [address] [facility] [id number] [address] [place] [address] Sep, [place] [address] [facility] [id number] [address] [place] [address] August, Tinea pedis of both feet B35 .3 and DM w/o complication type II, uncontrolled E11.65 [facility] [address] [facility] [id number] [address] [place] [address] Jul, [facility] [address] [facility] [id number] [address] [place] [phone] Jul, [place] [address] [facility] [id number] [address] [place] [id number] Jul, Obstructive sleep apnea G47. 33 [place] [address] [facility] [id number] [address] [place] [id number] Jun, Diabetes E11.9 [place] [address] [place] [id number] [address] [place] [id number] Jun, [facility] [address] [address] Jun, [facility] [address] [address] Jun, Bipolar disorder, unspecifie d F31.9 and Mental retardation F79 [place] [address] [address] Apr, [place] [address] [address] Feb, Diabetes E11.9 ; Encounter f or immunization Z23 ; Cough R05 and Nicotine abuse Z72.0 [place] [address] [id number] Jan, Bipolar disorder, unspecifie d F31.9 and Diabetes mellitus without mention of complication, type II or unspecified type, uncontrolled 250.02 [place] [address] [id number] Jan, [place] [address] [address] Dec, Reactive airway disease 493. 90 and Enuresis 788.30 [place] [address] [address] Dec, [place] [address] [address] Nov, [place] [address] [address] Nov, [place] [address] [address] Nov, Annual physical exam V70.0 ; Urinary incontinence 788.30 ; Diabetes 250.00 and Hypertension 401.9 [place] [address] [place] [address] Oct, Diabetes mellitus without me ntion of complication, type II or unspecified type, uncontrolled 250.02 [facility] [address] [id number] [address] [place] [id number] Oct, Diabetes mellitus without me ntion of complication, type II or unspecified type, uncontrolled 250.02 [facility] [address] [id number] [address] [place] [address] Oct, Diabetes mellitus without me ntion of complication, type II or unspecified type, uncontrolled 250.02 [facility] [address] [id number] [address] [place] [id number] Oct, [facility] [address] [id number] [address] [place] [phone] Oct, [facility] [address] [id number] [address] [place] [address] Oct, Bipolar disorder, unspecifie d 296.80 [facility] [address] [id number] [address] [place] [address] [id number] Sep, Dental examination V72[facility]2 [facility] [address] [id number] [address] [place] [address] August, [facility] [address] [id number] [address] [place] [id number] August, Dental examination V72.2 [facility] [address] [id number] [address] [place] [id number] August, [facility] [address] [id number] [address] [place] [id number] Jul, [facility] [address] [id number] [address] [place] [id number] Jul, [facility] [address] [id number] [address] [place] [address] Jun, [facility] [address] [id number] [address] [place] [id number] 17 Jun, 2014 [facility] [address] [id number] [address] [place] [address], [place] [address] 17 Jun, 2014 [facility] [address] [id number] [address] [place] [address], [place] [address] 17 Jun, 2014 [facility] [address] [id number] [address] [place] [address], [place] [address] 23 May, 2014 [facility] [address] [id number] [address] [place] [address], [place] [address] 23 May, 2014 [facility] [address] [id number] [address] [place] [address], [place] [address] 16 May, 2014 [facility] [address] [id number] [address] [place] [address], [place] [address] 16 May, 2014 [facility] [address] [id number] [address] [place] [address], [place] [address] 16 May, 2014 [facility] [address] [id number] [address] [place] [address], [place] [address] 16 May, 2014 [facility] [address] [id number] [address] [place] [address], [place] [address] 16 May, 2014 [facility] [address] [id number] [address] [place] [address], [place] [address] 16 May, 2014 [facility] [address] [id number] [address] [place] [address], [place] [address] 16 May, 2014 [facility] [address] [id number] [address] [place] [address], [place] [address] 16 May, 2014 [facility] [address] [id number] [address] [place] [address], [place] [address] 16 May, 2014 [facility] [address] [id number] [address] [place] [address], [place] [address] 16 May, 2014 [facility] [address] [id number] [address] [place] [address], [place] [address] May, [facility] [address] [id number] [address] [place] [address], [place] [address] May, [facility] [address] [id number] [address] [place] [address], [place] [address] May, [facility] [address] [id number] [address] [place] [address], [place] [address] Apr, [facility] [address] [id number] [address] [place] [address], [place] [address] Apr, [facility] [address] [id number] [address] [place] [address], [place] [address] Apr, [facility] [address] [id number] [address] [place] [address], [place] [address] Apr, [facility] [address] [id number] [address] [place] [address], [place] [address] Apr, [facility] [address] [id number] [address] [place] [address], [place] [address] Apr, [facility] [address] [id number] [address] [place] [address], [place] [address] Apr, [facility] [address] [id number] [address] [place] [address], [place] [address] Apr, [facility] [address] [id number] [address] [place] [address], [place] [address] Apr, [facility] [address] [id number] [address] [place] [address], [place] [address] Apr, [facility] [address] [id number] [address] [place] [address], [place] [address] Apr, [facility] [address] [id number] [address] [place] [address], [place] [address] Apr, [facility] [address] [id number] [address] [place] [address], [place] [address] Mar, [facility] [address] [id number] [address] [place] [address], [place] [address] 10 Mar, 2014 [facility] [address] [id number] [address] [place] [address], [place] [address] 10 Mar, 2014 [facility] [address] [id number] [address] [place] [address], [place] [address] 10 Mar, 2014 [facility] [address] [id number] [address] [place] [address], [place] [address] 10 Mar, 2014 [facility] [address] [id number] [address] [place] [address], [place] [address] 10 Mar, 2014 [facility] [address] [id number] [address] [place] [address], [place] [address] Feb, [facility] [address] [id number] [address] [place] [address], [place] [address] Feb, [facility] [address] [id number] [address] [place] [address], [place] [address] Feb, [facility] [address] [id number] [address] [place] [address], [place] [address] Feb, [facility] [address] [id number] [address] [place] [address], [place] [address] 14 Jan, 2014 [facility] [address] [id number] [address] [place] [address], [place] [address] 14 Jan, 2014 [facility] [address] [id number] [address] [place] [address], [place] [address] 14 Jan, 2014 [facility] [address] [id number] [address] [place] [address], [place] [address] 14 Jan, 2014 [facility] [address] [id number] [address] [place] [address], [place] [address] 22 Dec, 2013 [facility] [address] [id number] [address] [place] [address], [place] [address] 22 Dec, 2013 [facility] [address] [id number] [address] [place] [address], [place] [address] Dec, [facility] [address] [id number] [address] [place] [address], [place] [address] Dec, [facility] [address] [id number] [address] [place] [address], [place] [address] Nov, [facility] [address] [id number] [address] [place] [address], [place] [address] Nov, [facility] [address] [id number] [address] [place] [address], [place] [address] Nov, [facility] [address] [id number] [address] [place] [address], [place] [address] Nov, [facility] [address] [id number] [address] [place] [address], [place] [address] Nov, [facility] [address] [id number] [address] [place] [address], [place] [address] Nov, [facility] [address] [id number] [address] [place] [address], [place] [address] Nov, [facility] [address] [id number] [address] [place] [address], [place] [address] Oct, [facility] [address] [id number] [address] [place] [address], [place] [address] Oct, [facility] [address] [id number] [address] [place] [address], [place] [address] Oct, [facility] [address] [id number] [address] [place] [address], [place] [address] Oct, [facility] [address] [id number] [address] [place] [address], [place] [address] Oct, [facility] [address] [id number] [address] [place] [address], [place] [address] Oct, [facility] [address] [id number] [address] [place] [address], [place] [address] Oct, [facility] [address] [id number] [address] [place] [address], [place] [address] Sep, [facility] [address] [id number] [facility] [place] [address] 17 Sep, 2013 [facility] [address] [id number] [address] [place] [address], [place] [address] Sep, [facility] [address] [id number] [address] [place] [address], [place] [address] Sep, [facility] [address] [id number] [address] [place]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
--- OUTSIDE RECORDS SUMMARY | 2019-11-26 06:15 | XMS REPORT ---
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 Active 38836337 Problem Hypertensive retinopathy of both eyes H35.033 Active 9720925 Problem Open-angle glaucoma of both eyes, unspecified glaucoma stage, unspecified open-angle glaucoma type H40.10X0 Acti ve 05481639 Problem Obstructive sleep apnea G47.33 Active 13719741 Problem Type 2 diabetes mellitus with complication E11.8 Active 11828741 Problem Intermittent explosive disorder in adult F63.81 Active 70805208 Problem Bipolar disorder, unspecified F31.9 Active 75701075 Problem Mild intellectual disability F70 A ctive 70939312 Problem Other specified urinary incontinence N39.498 Active 297729907 Problem Diabetes E11.9 Active 56974344 Problem Type 2 diabetes mellitus wit h diabetic neuropathy, unspecified whether alf insulin use E11.40 Active 344518 770674539 Problem Essential hypertension I10 Active 71282332 Problem Reactive airway disease, mild intermittent, uncomplicated J45.20 Active 285043530 Problem Gastroesophageal reflux disease without esophagitis K21.9 Active 190625706 Problem Other diabetic neurological complication associated with type 2 diabetes mellitus E11.49 Active 777661709 Problem Neuropathy G62.9 Active [id number] ALLERGIES No Information ENCOUNTERS Encounter Location Date Diagnosis [facility] [place] [address] [facility] [id number] [address] [place] [id number] Jan, [facility] [place] [address] [facility] [id number] [address] [place] [address] Jan, [place] [address] [place] [id number] [address] [place] [phone] Dec, [place] [id number] [place] [phone] Oct, Type 2 diabetes mellitus wit h complication E11.8 ; Abnormal colonoscopy R93.3 ; Tobacco abuse Z72.0 ; Weight loss R63.4 and Essential hypertension I10 [place] [address] [place] [id number] [address] [place] [id number] Oct, [place] [address] [place] [id number] [address] [place] [address] Oct, Callus of foot L84 ; Hyperhi drosis R61 ; Onychomycosis B35.1 and Tinea pedis of both feet B35.3 [place] [id number] [place] [phone] Sep, [place] [address] [place] [id number] [address] [place] [phone] Sep, [place] [id number] [address] [place] [id number] Sep, [place] [address] [place] [id number] [address] [place] [address] Sep, Essential hypertension I10 [place] [id number] [address] [place] [address] August, Intermittent explosive disor salvatore in adult F63.81 ; Bipolar disorder, unspecified F31.9 and Mild intellectual disability F70 [place] [id number] [address] [place] [phone] Jul, Type 2 diabetes mellitus wit h diabetic neuropathy, unspecified whether intermediate manager insulin use E11.40 and Colon cancer screening Z12.11 [place] [id number] [address] [place] [address] Jul, Type 2 diabetes mellitus wit h diabetic neuropathy, unspecified whether alf insulin use E11.40 and Tinea pedis, unspecified laterality B35.3 [facility] [place] [address] [facility] [id number] [address] [place] [phone] 10 Jun, 2019 [facility] [place] [address] [facility] [id number] [address] [place] [phone] 10 Jun, 2019 [facility] [address] [facility] [id number] [address] [place] [id number] 04 Jun, 2019 Dysuria R30.0 [facility] [place] [address] [facility] [id number] [address] [place] [address] Jun, [facility] [place] [address] [facility] [id number] [address] [place] [phone] 20 May, 2019 Influenza J11.1 [place] [address] [place] [id number] [address] [place] [id number] 13 May, 2019 Intermittent explosive disor salvatore in adult F63.81 [facility] [place] [address] [place] [id number] [address] [place] [id number] 12 May, 2019 [facility] [place] [address] [place] [id number] [address] [place] [address] Apr, Intermittent explosive disor salvatore in adult F63.81 ; Bipolar disorder, unspecified F31.9 and Mild intellectual disability F70 [facility] [address] [place] [id number] [place] [address] Apr, Oral health maintenance stat requiring routine preventive dental care K08.9 [facility] [place] [address] [facility] [id number] [address] [place] [address] Apr, Type 2 diabetes mellitus wit h complication E11.8 ; History of test for hearing Z92.89 ; Colon cancer screening Z12.11 ; Other specified urinary incontinence N39.498 and Impacted cerumen, right ear H61.21 [facility] [place] [address] [facility] [id number] [address] [place] [address] Apr, Onychomycosis B35.1 ; Other diabetic neurological complication associated with type 2 diabetes mellitus E11.49 and Tinea pedis of both feet B35.3 [facility] [place] [address] [id number] [address] [place] [phone] Feb, [facility] [place] [address] [id number] [address] [place] [id number] Jan, [facility] [place] [address] [id number] [address] [place] [phone] Jan, [facility] [place] [address] [id number] [address] [place] [phone] Jan, [facility] [place] [address] [id number] [address] [place] [phone] Jan, [facility] [place] [address] [id number] [address] [place] [id number] Jan, [facility] [place] [address] [id number] [address] [place] [address] Jan, [facility] [place] [address] [id number] [address] [place] [phone] Jan, [facility] [place] [address] [id number] [address] [place] [address] Jan, Anemia D64.9 [facility] [id number] [place] [id number] Jan, Dental examination Z01.20 an d Oral health maintenance status requiring routine preventive dental care K08.9 [facility] [place] [address] [id number] [address] [place] [phone] Jan, Onychomycosis B35.1 and Othe r diabetic neurological complication associated with type 2 diabetes mellitus E11.49 [facility] [place] [address] [id number] [address] [place] [address] Jan, Anemia D64.9 [facility] [place] [address] [id number] [address] [place] [phone] Jan, [facility] [place] [address] [facility] [id number] [address] [place] [phone] Dec, Urinary tract infection with out hematuria, site unspecified N39.0 [facility] [place] [address] [facility] [id number] [address] [place] [id number] 30 Dec, 2018 Type 2 diabetes mellitus wit h complication E11.8 ; Urinary tract infection without hematuria, site unspecified N39.0 ; Impacted cerumen of both ears H61.23 ; Encounter for immunization Z23 and Hyponatremia E87.1 [facility] [place] [address] [facility] [id number] [address] [place] [id number] Dec, Intermittent explosive disor salvatore in adult F63.81 ; Dysuria R30.0 ; Type 2 diabetes mellitus with complication E11.8 ; Bipolar disorder, unspecified F31.9 and Mild intellectual disability F70 [facility] [place] [address] [facility] [id number] [address] [place] [phone] Dec, Dysuria R30.0 [facility] [place] [address] [facility] [id number] [address] [place] [address] Dec, Intermittent explosive disor salvatore in adult F63.81 ; Bipolar disorder, unspecified F31.9 and Mild intellectual disability F70 [facility] [place] [address] [facility] [id number] [address] [place] [id number] Nov, [facility] [place] [address] [facility] [id number] [address] [place] [address] Oct, [facility] [address] [place] [id number] [place] [address] Oct, Oral health maintenance stat us requiring routine preventive dental care K08.9 [facility] [place] [address] [facility] [id number] [address] [place] [id number] August, Intermittent explosive disor salvatore in adult F63.81 ; Bipolar disorder, unspecified F31.9 and Mild intellectual disability F70 [facility] [address] [id number] [address] [place] [address] [id number] August, Dental caries K02.9 [facility] [place] [address] [facility] [id number] [address] [place] [id number] Jul, Onychomycosis B35.1 ; Other diabetic neurological complication associated with type 2 diabetes mellitus E11.49 and Tinea pedis of both feet B35.3 [facility] [address] [facility] [id number] [address] [place] [address] [id number] Jul, Caries K02.9 [facility] [place] [address] [facility] [id number] [address] [place] [id number] Jul, Type 2 diabetes mellitus wit h complication E11.8 ; Tobacco abuse Z72.0 and Bipolar disorder, unspecified F31.9 [facility] [place] [address] [facility] [id number] [address] [place] [address] Jun, [facility] [address] [facility] [id number] [address] [place] [address] [phone] Jun, Dental examination Z01.20 an d Oral health maintenance status requiring routine preventive dental care K08.9 [facility] [place] [address] [place] [id number] [address] [place] [phone] May, Bilateral impacted cerumen H 61.23 [facility] [place] [address] [place] [id number] [address] [place] [address] Apr, Bipolar disorder, unspecifie d F31.9 ; Intermittent explosive disorder in adult F63.81 ; Type 2 diabetes mellitus with complication E11.8 ; Tobacco abuse Z72.0 and Colon cancer screening Z12.11 [facility] [place] [address] [facility] [id number] [address] [place] [address] Apr, Onychomycosis B35.1 and Othe r diabetic neurological complication associated with type 2 diabetes mellitus E11.49 [facility] [place] [address] [place] [id number] [address] [place] [id number] Apr, Intermittent explosive disor salvatore in adult F63.81 ; Bipolar disorder, unspecified F31.9 and Mild intellectual disability F70 [facility] [place] [address] [place] [id number] [address] [place] [address] Mar, Diabetes E11.9 [facility] [address] [facility] [id number] [address] [place] [id number] Jan, Encounter for immunization Z 23 [facility] [place] [address] [facility] [id number] [address] [place] [id number] 12 Jan, 2018 Tinea pedis of both feet B35 .3 ; Other diabetic neurological complication associated with type 2 diabetes mellitus E11.49 and Onychomycosis B35.1 [facility] [place] [address] [facility] [id number] [address] [place] [id number] Nov, Type 2 diabetes mellitus wit h complication E11.8 [place] [address] [facility] [id number] [address] [place] [id number] Nov, [facility] [place] [address] [place] [id number] [address] [place] [address] Oct, Intermittent explosive disor salvatore in adult F63.81 ; Bipolar disorder, unspecified F31.9 and Mild intellectual disability F70 [facility] [place] [address] [facility] [id number] [address] [place] [address] Oct, [facility] [address] [facility] [id number] [address] [place] [address] [phone] Oct, Dental examination Z01.20 [facility] [place] [address] [place] [id number] [address] [place] [phone] Oct, Onychomycosis B35.1 and Othe r diabetic neurological complication associated with type 2 diabetes mellitus E11.49 [facility] [place] [address] [facility] [id number] [address] [place] [address] Sep, Type 2 diabetes mellitus wit h complication E11.8 and Colon cancer screening Z12.11 [facility] [place] [address] [facility] [id number] [address] [place] [address] Sep, Type 2 diabetes mellitus wit h complication E11.8 ; Colon cancer screening Z12.11 and Neuropathy G62.9 [facility] [place] [address] [facility] [id number] [address] [place] [id number] August, Diabetes E11.9 [facility] [address] [id number] [address] [place] [address] [id number] Jul, Dental examination Z01.20 [facility] [place] [address] [facility] [id number] [address] [place] [address] May, Mild intellectual disability F70 [facility] [place] [address] [facility] [id number] [address] [place] [id number] May, Mild intellectual disability F70 ; High risk medication use Z79.899 ; Intermittent explosive disorder in adult F63.81 and Bipolar disorder, unspecified F31.9 [facility] [place] [address] [facility] [id number] [address] [place] [address] May, [facility] [place] [address] [facility] [id number] [address] [place] [id number] May, [facility] [place] [address] [facility] [id number] [address] [place] [address] Apr, Type 2 diabetes mellitus wit h complication E11.8 ; Mild intellectual disability F70 ; Gastroesophageal reflux disease without esophagitis K21.9 ; Reactive airway disease, mild intermittent, uncomplicated J45.20 and Tobacco abuse Z72.0 [facility] [place] [address] [facility] [id number] [address] [place] [phone] Apr, High risk medication use Z79 .899 ; Mild intellectual disability F70 ; Intermittent explosive disorder in adult F63.81 and Bipolar disorder, unspecified F31.9 [facility] [address] [id number] [address] [place] [address] [phone] Mar, Encounter for dental exam an d cleaning w/o abnormal findings Z01.20 [facility] [address] [id number] [address] [place] [address] [phone] Mar, Dental examination Z01.20 [facility] [place] [address] [facility] [id number] [address] [place] [phone] Jan, [facility] [place] [address] [id number] [address] [place] [id number] Jan, [facility] [place] [address] [id number] [address] [place] [id number] 10 Jan, 2017 Mild intellectual disability F70 ; Bipolar disorder, unspecified F31.9 and Intermittent explosive disorder in adult F63.81 [facility] [place] [address] [id number] [address] [place] [id number] 02 Jan, 2017 Diabetes E11.9 [facility] [address] [id number] [address] [place] [address] [id number] 13 Dec, 2016 Encounter for dental examina tion and cleaning without abnormal findings Z01.20 [facility] [place] [address] [id number] [address] [place] [id number] 12 Dec, 2016 Bipolar disorder, unspecifie d F31.9 ; Intermittent explosive disorder in adult F63.81 and Mild intellectual disability F70 [facility] [place] [address] [id number] [address] [place] [phone] Nov, Diabetes E11.9 [facility] [place] [address] [id number] [address] [place] [phone] Nov, [facility] [place] [address] [id number] [address] [place] [phone] Nov, Diabetes E11.9 and Colon can cer screening Z12.[id number] [place] [address] [id number] Sep, Dental examination Z01.20 [facility] [address] [id number] [address] [place] [address] [id number] Sep, Encounter for dental examina tion and cleaning without abnormal findings Z01.20 [facility] [place] [address] [id number] [address] [place] [id number] 13 Sep, 2016 Bipolar disorder, unspecifie d F31.9 [facility] [place] [address] [id number] [address] [place] [id number] Sep, Bipolar disorder, unspecifie d F31.9 [facility] [place] [address] [id number] [address] [place] [phone] Jul, [facility] [place] [address] [facility] [id number] [address] [place] [phone] 13 Jul, 2016 Type 2 diabetes mellitus wit h complication E11.8 [facility] [address] [id number] [address] [place] [address] [id number] 15 Jun, 2016 Encounter for dental examina tion and cleaning without abnormal findings Z01.20 [place] [id number] [facility] [id number] [place] [address] [id number] Jun, Dental examination Z01.20 [facility] [place] [address] [facility] [id number] [address] [place] [phone] Apr, Sports physical Z02.5 [facility] [place] [address] [facility] [id number] [address] [place] [id number] 14 Mar, 2016 Bipolar disorder, in partial remission, most recent episode manic F31.73 and Intermittent explosive disorder in adult F63.81 [facility] [place] [address] [facility] [id number] [address] [place] [id number] 08 Mar, 2016 [facility] [address] [facility] [id number] [address] [place] [phone] 06 Mar, 2016 Diabetes E11.9 [facility] [address] [id number] [address] [place] [address] [phone] Feb, Encounter for dental examina tion and cleaning without abnormal findings Z01.20 [facility] [address] [facility] [id number] [address] [place] [phone] 22 Dec, 2015 Nocturnal hypoxemia G47.34 a nd Encounter for immunization Z23 [facility] [place] [address] [facility] [id number] [address] [place] [phone] 15 Dec, 2015 [facility] [place] [address] [facility] [id number] [address] [place] [phone] 12 Dec, 2015 [facility] [place] [address] [facility] [id number] [address] [place] [phone] Dec, Bipolar disorder, unspecifie d F31.9 [facility] [address] [id number] [address] [place] [id number] 13 Oct, 2015 Encounter for dental examina tion and cleaning without abnormal findings Z01.[id number] [id number] [id number] 13 Oct, 2015 Dental examination Z01.20 [facility] [place] [address] [facility] [id number] [address] [place] [phone] 07 Oct, 2015 Diabetes E11.9 [place] [address] [facility] [id number] [address] [place] [phone] Oct, Diabetes E11.9 ; Reactive ai rway disease, mild intermittent, uncomplicated J45.20 and Tobacco abuse Z72.0 [place] [address] [address] [facility] [id number] [address] [place] [phone] Sep, Bipolar disorder, unspecifie d F31.9 and Depression F32.9 [place] [address] [facility] [id number] [address] [place] [phone] Sep, [place] [address] [address] [facility] [id number] [address] [place] [phone] August, Tinea pedis of both feet B35 .3 and DM w/o complication type II, uncontrolled E11.65 [facility] [place] [address] [facility] [id number] [address] [place] [phone] Jul, [facility] [place] [address] [facility] [id number] [address] [place] [phone] Jul, [place] [address] [address] [facility] [id number] [address] [place] [address] Jul, Obstructive sleep apnea G47. 33 [place] [address] [address] [facility] [id number] [address] [place] [address] Jun, Diabetes E11.9 [place] [address] [address] [place] [id number] [address] [place] [address] Jun, [facility] [address] [address] Jun, [facility] [address] [address] Jun, Bipolar disorder, unspecifie d F31.9 and Mental retardation F79 [place] [address] [address] Apr, [place] [address] [address] Feb, Diabetes E11.9 ; Encounter f or immunization Z23 ; Cough R05 and Nicotine abuse Z72.0 [place] [address] [address] Jan, Bipolar disorder, unspecifie d F31.9 and Diabetes mellitus without mention of complication, type II or unspecified type, uncontrolled 250.02 [place] [address] [address] Jan, [place] [address] [address] Dec, Reactive airway disease 493. 90 and Enuresis 788.30 [place] [address] [address] Dec, [place] [address] [address] Nov, [place] [address] [address] Nov, [place] [address] [address] Nov, Annual physical exam V70.0 ; Urinary incontinence 788.30 ; Diabetes 250.00 and Hypertension 401.9 [place] [address] [place] [address] Oct, Diabetes mellitus without me ntion of complication, type II or unspecified type, uncontrolled 250.02 [facility] [place] [address] [id number] [address] [place] [address] Oct, Diabetes mellitus without me ntion of complication, type II or unspecified type, uncontrolled 250.02 [facility] [place] [address] [id number] [address] [place] [address] Oct, Diabetes mellitus without me ntion of complication, type II or unspecified type, uncontrolled 250.02 [facility] [place] [address] [id number] [address] [place] [address] Oct, [facility] [place] [address] [id number] [address] [place] [address] Oct, [facility] [place] [address] [id number] [address] [place] [address] Oct, Bipolar disorder, unspecifie d 296.80 [facility] [address] [id number] [address] [place] [id number] Sep, Dental examination V72.2 [facility] [address] [id number] [address] [place] [address] August, [facility] [address] [id number] [address] [place] [id number] August, Dental examination V72.2 [facility] [place] [address] [id number] [address] [place] [address] August, [facility] [place] [address] [id number] [address] [place] [address] Jul, [facility] [place] [address] [id number] [address] [place] [address] Jul, [facility] [place] [address] [id number] [address] [place] [address] Jun, [facility] [place] [address] [id number] [address] [place] [address] 17 Jun, 2014 [facility] [address] [id number] [address] [place] [address], [place] [address] 17 Jun, 2014 [facility] [address] [id number] [address] [place] [address], [place] [address] 17 Jun, 2014 [facility] [address] [id number] [address] [place] [address], [place] [address] 23 May, 2014 [facility] [address] [id number] [address] [place] [address], [place] [address] 23 May, 2014 [facility] [address] [id number] [address] [place] [address], [place] [address] 16 May, 2014 [facility] [address] [id number] [address] [place] [address], [place] [address] 16 May, 2014 [facility] [address] [id number] [address] [place] [address], [place] [address] 16 May, 2014 [facility] [address] [id number] [address] [place] [address], [place] [address] 16 May, 2014 [facility] [address] [id number] [address] [place] [address], [place] [address] 16 May, 2014 [facility] [address] [id number] [address] [place] [address], [place] [address] 16 May, 2014 [facility] [address] [id number] [address] [place] [address], [place] [address] 16 May, 2014 [facility] [address] [id number] [address] [place] [address], [place] [address] 16 May, 2014 [facility] [address] [id number] [address] [place] [address], [place] [address] 16 May, 2014 [facility] [address] [id number] [address] [place] [address], [place] [address] 16 May, 2014 [facility] [address] [id number] [address] [place] [address], [place] [address] May, [facility] [address] [id number] [address] [place] [address], [place] [address] May, [facility] [address] [id number] [address] [place] [address], [place] [address] May, [facility] [address] [id number] [address] [place] [address], [place] [address] Apr, [facility] [address] [id number] [address] [place] [address], [place] [address] Apr, [facility] [address] [id number] [address] [place] [address], [place] [address] Apr, [facility] [address] [id number] [address] [place] [address], [place] [address] Apr, [facility] [address] [id number] [address] [place] [address], [place] [address] Apr, [facility] [address] [id number] [address] [place] [address], [place] [address] Apr, [facility] [address] [id number] [address] [place] [address], [place] [address] Apr, [facility] [address] [id number] [address] [place] [address], [place] [address] Apr, [facility] [address] [id number] [address] [place] [address], [place] [address] Apr, [facility] [address] [id number] [address] [place] [address], [place] [address] Apr, [facility] [address] [id number] [address] [place] [address], [place] [address] Apr, [facility] [address] [id number] [address] [place] [address], [place] [address] Apr, [facility] [address] [id number] [address] [place] [address], [place] [address] Mar, [facility] [address] [id number] [address] [place] [address], [place] [address] 10 Mar, 2014 [facility] [address] [id number] [address] [place] [address], [place] [address] 10 Mar, 2014 [facility] [address] [id number] [address] [place] [address], [place] [address] 10 Mar, 2014 [facility] [address] [id number] [address] [place] [address], [place] [address] 10 Mar, 2014 [facility] [address] [id number] [address] [place] [address], [place] [address] 10 Mar, 2014 [facility] [address] [id number] [address] [place] [address], [place] [address] Feb, [facility] [address] [id number] [address] [place] [address], [place] [address] Feb, [facility] [address] [id number] [address] [place] [address], [place] [address] Feb, [facility] [address] [id number] [address] [place] [address], [place] [address] Feb, [facility] [address] [id number] [address] [place] [address], [place] [address] 14 Jan, 2014 [facility] [address] [id number] [address] [place] [address], [place] [address] 14 Jan, 2014 [facility] [address] [id number] [address] [place] [address], [place] [address] 14 Jan, 2014 [facility] [address] [id number] [address] [place] [address], [place] [address] 14 Jan, 2014 [facility] [address] [id number] [address] [place] [address], [place] [address] 22 Dec, 2013 [facility] [address] [id number] [address] [place] [address], [place] [address] 22 Dec, 2013 [facility] [address] [id number] [address] [place] [address], [place] [address] Dec, [facility] [address] [id number] [address] [place] [address], [place] [address] Dec, [facility] [address] [id number] [address] [place] [address], [place] [address] Nov, [facility] [address] [id number] [address] [place] [address], [place] [address] Nov, [facility] [address] [id number] [address] [place] [address], [place] [address] Nov, [facility] [address] [id number] [address] [place] [address], [place] [address] Nov, [facility] [address] [id number] [address] [place] [address], [place] [address] Nov, [facility] [address] [id number] [address] [place] [address], [place] [address] Nov, [facility] [address] [id number] [address] [place] [address], [place] [address] Nov, [facility] [address] [id number] [address] [place] [address], [place] [address] Oct, [facility] [address] [id number] [address] [place] [address], [place] [address] Oct, [facility] [address] [id number] [address] [place] [address], [place] [address] Oct, [facility] [address] [id number] [address] [place] [address], [place] [address] Oct, [facility] [address] [id number] [address] [place] [address], [place] [address] Oct, [facility] [address] [id number] [address] [place] [address], [place] [address] Oct, [facility] [address] [id number] [address] [place] [address], [place] [address] Oct, [facility] [address] [id number] [address] [place] [address], [place] [address] Sep, [facility] [address] [id number] [facility] [place] [address] 17 Sep, 2013 [facility] [address] [id number] [address] [place] [address], [place] [address] Sep, [facility] [address] [id number] [address] [place] [address], [place] [address] Sep, [facility] [address] [id number] [address] [place] [address], [place] [address] Sep, [facility] [address] [id number] [address] [place] [address], [place] [address] Jul, [facility] [address] [id number] [address] [place] [address], [place] [address] Jul, [facility] [address] [id number] [address] [place] [address], [place] [address] Jul, [facility] [address] [id number] [address] [place] [address], [place] [address] Jul, [facility] [address] [id number] [address] [place] [address], [place] [address] Jul, [facility] [address] [id number] [address] [place] [address], [place] [address] Jul, [facility] [address] [id number] [address] [place] [address], [place] [address] Jul, [facility] [address] [id number] [address] [place] [address], [place] [address] Jul, [facility] [address] [id number] [address] [place] [address], [place] [address] Jul, [facility] [address] [id number] [address] [place] [address], [place] [address] Jul, [facility] [address] [id number] [address] [place] [address], [place] [address] Jul, [facility] [address] [id number] [address] [place] [address], [place] [address] Jul, [facility] [address] [id number] [address] [place] [address], [place] [address] Jun, [facility] [address] [id number] [address] [place] [address], [place] [address] Jun, [facility] [address] [id number] [address] [place] [address], [place] [address] Jun, [facility] [address] [id number] [address] [place] [address], [place] [address] Jun, [facility] [address] [id number] [address] [place] [address], [place] [address] Jun, [facility] [address] [id number] [address] [place] [address], [place] [address] Jun, [facility] [address] [id number] [address] [place] [address], [place] [address] Jun, [facility] [address] [id number] [address] [place] [address], [place] [address] Jun, [facility] [address] [id number] [address] [place] [address], [place] [address] May, [facility] [address] [id number] [address] [place] [address], [place] [address] May, [facility] [address] [id number] [address] [place] [address], [place] [address] May, [facility] [address] [id number] [address] [place] [address], [place] [address] May, [facility] [address] [id number] [address] [place] [address], [place] [address] May, [facility] [address] [id number] [address] [place] [address], [place] [address] May, [facility] [address] [id number] [address] [place] [address], [place] [address] May, [facility] [address] [id number] [address] [place] [address], [place] [address] May, [facility] [address] [id number] [address] [place] [address], [place] [address] Apr, [facility] [address] [id number] [address] [place] [address], [place] [address] Apr, [facility] [address] [id number] [address] [place] [address], [place] [address] Apr, [facility] [address] [id number] [address] [place] [address], [place] [address] Apr, [facility] [address] [id number] [address] [place] [address], [place] [address] Mar, [facility] [address] [id number] [address] [place] [address], [place] [address] Mar, [facility] [address] [id number] [address] [place] [address], [place] [address] Mar, [facility] [address] [id number] [address] [place] [address], [place] [address] Feb, [facility] [address] [id number] [address] [place] [address], [place] [address] Feb, [facility] [address] [id number] [address] [place] [address], [place] [address] Feb, [facility] [address] [id number] [address] [place] [address], [place] [address] Feb, [facility] [address] [id number] [address] [place] [address], [place] [address] Feb, [facility] [address] [id number] [address] [place] [address], [place] [address] Feb, [facility] [address] [id number] [address] [place] [address], [place] [address] Jan, [facility] [address] [id number] [address] [place] [address], [place] [address] Jan, [facility] [address] [id number] [address] [place] [address], [place] [address] Jan, [facility] [address] [id number] [address] [place] [address], [place] [address] Jan, [facility] [address] [id number] [address] [place] [address], [place] [address] Jan, [facility] [address] [id number] [address] [place] [address], [place] [address] Jan, [facility] [address] [id number] [address] [place] [address], [place] [address] Jan, [facility] [address] [id number] [address] [place] [address], [place] [address] Dec, [facility] [address] [id number] [address] [place] [address], [place] [address] 16 Dec, 2012 [facility] [address] [id number] [address] [place] [address], [place] [address] Dec, [facility] [address] [id number] [address] [place] [address], [place] [address] 05 Dec, 2012 [facility] [address] [id number] [address] [place] [address], [place] [address] Nov, [facility] [address] [id number] [address] [place] [address], [place] [address] Nov, [facility] [address] [id number] [address] [place] [address], [place] [address] Nov, [facility] [address] [id number] [address] [place] [address], [place] [address] Nov, [facility] [address] [id number] [address] [place] [address], [place] [address] Nov, [facility] [address] [id number] [address] [place] [address], [place] [address] Nov, [facility] [address] [id number] [address] [place] [address], [place] [address] Nov, [facility] [address] [id number] [address] [place] [address], [place] [address] Oct, [facility] [address] [id number] [address] [place] [address], [place] [address] Oct, [facility] [address] [id number] [address] [place] [address], [place] [address] Oct, [facility] [address] [id number] [address] [place] [address], [place] [address] Oct, [facility] [address] [id number] [address] [place] [address], [place] [address] Oct, [facility] [address] [id number] [address] [place] [address], [place] [address] Oct, [facility] [address] [id number] [address] [place] [address], [place] [address] Oct, [facility] [address] [id number] [address] [place] [address], [place] [address] Oct, [facility] [address] [id number] [address] [place] [address], [place] [address] Sep, [facility] [id number] [facility] [id number] [id number] August, [facility] [address] [id number] [address] [place] [id number] August, [facility] [address] [id number] [address] [place] [address], [place] [address] Jul, [facility] [address] [id number] [address] [place] [address], [place] [address] Jul, [facility] [address] [id number] [address] [place] [address], [place] [address] Jul, [facility] [address] [id number] [address] [place] [address], [place] [address] 22 Jul, 2012 [facility] [address] [id number] [address] [place] [address], [place] [address] 18 Jul, 2012 [facility] [address] [id number] [address] [place] [address], [place] [address] 17 Jul, 2012 [facility] [address] [id number] [address] [place] [address], [place] [address] 16 Jul, 2012 [facility] [address] [id number] [address] [place] [address], [place] [address] 21 Jun, 2012 [facility] [address] [id number] [address] [place] [address], [place] [address] 18 Jun, 2012 [facility] [address] [id number] [address] [place] [address], [place] [address] 11 Jun, 2012 [facility] [address] [id number] [address] [place] [address], [place] [address] 04 Jun, 2012 [facility] [address] [id number] [address] [place] [address], [place] [address] 04 Jun, 2012 [facility] [address] [id number] [address] [place] [address], [place] [address] 19 May, 2012 [facility] [address] [id number] [address] [place] [address], [place] [address] 18 May, 2012 [facility] [address] [id number] [address] [place] [address], [place] [address] 04 May, 2012 [facility] [address] [id number] [address] [place] [address], [place] [address] 15 Apr, 2012 [facility] [address] [id number] [address] [place] [address], [place] [address] 14 Apr, 2012 [facility] [address] [id number] [address] [place] [address], [place] [address] 07 Apr, 2012 [facility] [address] [id number] [address] [place] [address], [place] [address] Mar, [facility] [address] [id number] [address] [place] [address], [place] [address] Mar, [facility] [address] [id number] [address] [place] [address], [place] [address] Mar, [facility] [address] [id number] [address] [place] [address], [place] [address] Mar, [facility] [address] [id number] [address] [place] [address], [place] [address] Mar, [facility] [address] [id number] [address] [place] [address], [place] [address] Mar, [facility] [address] [id number] [address] [place] [address], [place] [address] Feb, [facility] [address] [id number] [address] [place] [address], [place] [address] Feb, [facility] [address] [id number] [address] [place] [address], [place] [address] Jan, [facility] [facility] [address] [id number] [address] [place] [address], [place] [address] Jan, [facility] [address] [id number] [address] [place] [address], [place] [address] Dec, [facility] [address] [id number] [address] [place] [address], [place] [address] Nov, [facility] [address] [id number] [address] [place] [address], [place] [address] Nov, [facility] [address] [id number] [address] [place] [address], [place] [address] Nov, [facility] [address] [id number] [address] [place] [address], [place] [address] Nov, [facility] [address] [id number] [address] [place] [address], [place] [address] Oct, [facility] [address] [id number] [address] [place] [address], [place] [address] Oct, [facility] [address] [id number] [address] [place] [address], [place] [address] Oct, [facility] [address] [id number] [address] [place] [address], [place] [address] 15 Sep, 2011 [facility] [address] [id number] [address] [place] [address], [place] [address] Sep, [facility] [address] [id number] [address] [place] [address], [place] [address] Sep, [facility] [address] [id number] [address] [place] [address], [place] [address] August, [facility] [address] [id number] [address] [place] [address], [place] [address] August, [facility] [address] [id number] [address] [place] [address], [place] [address] Jul, [facility] [address] [id number] [address] [place] [address], [place] [address] 24 Jul, 2011 [facility] [address] [id number] [address] [place] [address], [place] [address] Jul, [facility] [address] [id number] [address] [place] [address], [place] [address] Jul, [facility] [address] [id number] [address] [place] [address], [place] [address] Jun, [facility] [address] [id number] [address] [place] [address], [place] [address] May, [facility] [address] [id number] [address] [place] [address], [place] [address] Apr, [facility] [address] [id number] [address] [place] [address], [place] [address] Apr, [facility] [address] [id number] [address] [place] [address], [place] [address] Apr, [facility] [address] [id number] [address] [place] [address], [place] [address] Apr, [facility] [address] [id number] [address] [place] [address], [place] [address] Apr, [facility] [address] [id number] [address] [place] [address], [place] [address] Apr, [facility] [address] [id number] [address] [place] [address], [place] [address] Mar, [facility] [address] [id number] [address] [place] [address], [place] [address] Mar, [facility] [address] [id number] [address] [place] [address], [place] [address] Feb, [facility] [address] [id number] [address] [place] [address], [place] [address] Feb, [facility] [address] [id number] [address] [place] [address], [place] [address] Feb, [facility] [address] [id number] [address] [place] [address], [place] [address] Feb, [facility] [address] [id number] [address] [place] [address], [place] [address] Jan, [facility] [address] [id number] [address] [place] [address], [place] [address] Jan, [facility] [address] [id number] [address] [place] [address], [place] [address] Jan, [facility] [address] [id number] [address] [place] [address], [place] [address] Jan, [facility] [address] [id number] [address] [place] [address], [place] [address] Nov, [facility] [address] [id number] [address] [place] [address], [place] [address] Mar, [facility] [address] [id number] [address] [place] [address], [place] [address] 02 Mar, 2010 [facility] [address] [id number] [address] [place] [address], [place] [address] 30 Feb, 2010 [facility] [address] [id number] [address] [place] [address], [place] [address] 15 Feb, 2010 [facility] [address] [id number] [address] [place] [address], [place] [address] 19 Jan, 2010 [facility] [address] [id number] [address] [place] [address], [place] [address] 19 Jan, 2010 [facility] [address] [id number] [address] [place] [address], [place] [address] 15 Sep, 2009 [facility] [address] [id number] [address] [place] [id number] 16 May, 2009 [facility] [address] [id number] [address] [place] [address], [place] [address] Apr, [facility] [address] [id number] [address] [place] [address] Mar, [facility] [address] [id number] [address] [place] [id number] 15 Feb, 2009 [facility] [address] [id number] [address] [place] [id number] 10 Feb, 2009 [facility] [address] [id number] [address] [place] [id number] 10 Feb, 2009 [facility] [address] [id number] [address] [place] [id number] 22 Jan, 2009 [facility] [address] [id number] [address] [place] [id number] 13 Jan, 2009 [facility] [address] [id number] [address] [place] [id number] 13 Jan, 2009 [facility] [address] [id number] [address] [place] [id number] 11 Jan, 2009 [facility] [address] [id number] [facility] [place] [address] August, IMMUNIZATIONS No Known Immunizations SOCIAL HISTORY [...] ied 09/2019 Hospitalization History surgery Hospitalization History [facility], [facility] treatment few times for BH
--- OUTSIDE RECORDS SUMMARY | 2019-11-26 06:15 | XMS REPORT ---
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 Active 29550244 Problem Hypertensive retinopathy of both eyes H35.033 Active 2615919 Problem Open-angle glaucoma of both eyes, unspecified glaucoma stage, unspecified open-angle glaucoma type H40.10X0 Acti ve 47010063 Problem Obstructive sleep apnea G47.33 Active 27278853 Problem Type 2 diabetes mellitus with complication E11.8 Active 33736673 Problem Intermittent explosive disorder in adult F63.81 Active 14139976 Problem Bipolar disorder, unspecified F31.9 Active 10527020 Problem Mild intellectual disability F70 A ctive 85039850 Problem Other specified urinary incontinence N39.498 Active 323144147 Problem Diabetes E11.9 Active 56980349 Problem Type 2 diabetes mellitus wit h diabetic neuropathy, unspecified whether halfway insulin use E11.40 Active 823005 353140369 Problem Essential hypertension I10 Active 53726209 Problem Reactive airway disease, mild intermittent, uncomplicated J45.20 Active 497577628 Problem Gastroesophageal reflux disease without esophagitis K21.9 Active 516080143 Problem Other diabetic neurological complication associated with type 2 diabetes mellitus E11.49 Active 133104604 Problem Neuropathy G62.9 Active [id number] ALLERGIES No Information ENCOUNTERS Encounter Location Date Diagnosis [facility] [address] [facility] [id number] [address] [place] [phone] Jan, [facility] [address] [facility] [id number] [address] [place] [phone] Jan, [place] [address] [place] [id number] [address] [place] [phone] Dec, [place] [id number] [place] [phone] Oct, Type 2 diabetes mellitus wit h complication E11.8 ; Abnormal colonoscopy R93.3 ; Tobacco abuse Z72.0 ; Weight loss R63.4 and Essential hypertension I10 [place] [address] [place] [id number] [address] [place] [phone] Oct, [place] [address] [place] [id number] [address] [place] [phone] Oct, Callus of foot L84 ; Hyperhi drosis R61 ; Onychomycosis B35.1 and Tinea pedis of both feet B35.3 [place] [id number] [address] [place] [phone] Sep, [place] [address] [place] [id number] [address] [place] [phone] Sep, [place] [id number] [address] [place] [phone] Sep, [place] [address] [place] [id number] [address] [place] [id number] Sep, Essential hypertension I10 [place] [id number] [address] [place] [phone] August, Intermittent explosive disor salvatore in adult F63.81 ; Bipolar disorder, unspecified F31.9 and Mild intellectual disability F70 [place] [id number] [address] [place] [id number] Jul, Type 2 diabetes mellitus wit h diabetic neuropathy, unspecified whether intermediate manager insulin use E11.40 and Colon cancer screening Z12.11 [place] [id number] [address] [place] [phone] Jul, Type 2 diabetes mellitus wit h diabetic neuropathy, unspecified whether halfway insulin use E11.40 and Tinea pedis, unspecified laterality B35.3 [facility] [address] [facility] [id number] [address] [place] [id number] 10 Jun, 2019 [facility] [address] [facility] [id number] [address] [place] [phone] 10 Jun, 2019 [facility] [address] [facility] [id number] [address] [place] [id number] 04 Jun, 2019 Dysuria R30.0 [facility] [address] [facility] [id number] [address] [place] [phone] Jun, [facility] [address] [facility] [id number] [address] [place] [id number] 20 May, 2019 Influenza J11.1 [place] [address] [place] [id number] [address] [place] [id number] 13 May, 2019 Intermittent explosive disor salvatore in adult F63.81 [facility] [address] [place] [id number] [address] [place] [phone] 12 May, 2019 [facility] [address] [place] [id number] [address] [place] [phone] Apr, Intermittent explosive disor salvatore in adult F63.81 ; Bipolar disorder, unspecified F31.9 and Mild intellectual disability F70 [facility] [address] [place] [id number] [place] [id number] Apr, Oral health maintenance stat requiring routine preventive dental care K08.9 [facility] [address] [facility] [id number] [address] [place] [phone] Apr, Type 2 diabetes mellitus wit h complication E11.8 ; History of test for hearing Z92.89 ; Colon cancer screening Z12.11 ; Other specified urinary incontinence N39.498 and Impacted cerumen, right ear H61.21 [facility] [address] [facility] [id number] [address] [place] [id number] Apr, Onychomycosis B35.1 ; Other diabetic neurological complication associated with type 2 diabetes mellitus E11.49 and Tinea pedis of both feet B35.3 [facility] [address] [id number] [address] [place] [phone] Feb, [facility] [address] [id number] [address] [place] [phone] Jan, [facility] [address] [id number] [address] [place] [phone] Jan, [facility] [address] [id number] [address] [place] [phone] Jan, [facility] [address] [id number] [address] [place] [phone] Jan, [facility] [address] [id number] [address] [place] [phone] Jan, [facility] [address] [id number] [address] [place] [phone] Jan, [facility] [address] [id number] [address] [place] [id number] Jan, [facility] [address] [id number] [address] [place] [phone] Jan, Anemia D64.9 [facility] [id number] [place] [phone] Jan, Dental examination Z01.20 an d Oral health maintenance status requiring routine preventive dental care K08.9 [facility] [address] [id number] [address] [place] [id number] Jan, Onychomycosis B35.1 and Othe r diabetic neurological complication associated with type 2 diabetes mellitus E11.49 [facility] [address] [id number] [address] [place] [phone] Jan, Anemia D64.9 [facility] [address] [id number] [address] [place] [phone] Jan, [facility] [address] [facility] [id number] [address] [place] [phone] Dec, Urinary tract infection with out hematuria, site unspecified N39.0 [facility] [address] [facility] [id number] [address] [place] [id number] 30 Dec, 2018 Type 2 diabetes mellitus wit h complication E11.8 ; Urinary tract infection without hematuria, site unspecified N39.0 ; Impacted cerumen of both ears H61.23 ; Encounter for immunization Z23 and Hyponatremia E87.1 [facility] [address] [facility] [id number] [address] [place] [id number] Dec, Intermittent explosive disor salvatore in adult F63.81 ; Dysuria R30.0 ; Type 2 diabetes mellitus with complication E11.8 ; Bipolar disorder, unspecified F31.9 and Mild intellectual disability F70 [facility] [address] [facility] [id number] [address] [place] [phone] Dec, Dysuria R30.0 [facility] [address] [facility] [id number] [address] [place] [phone] Dec, Intermittent explosive disor salvatore in adult F63.81 ; Bipolar disorder, unspecified F31.9 and Mild intellectual disability F70 [facility] [address] [facility] [id number] [address] [place] [phone] Nov, [facility] [address] [facility] [id number] [address] [place] [id number] Oct, [facility] [address] [place] [id number] [place] [phone] Oct, Oral health maintenance stat us requiring routine preventive dental care K08.9 [facility] [address] [facility] [id number] [address] [place] [id number] August, Intermittent explosive disor salvatore in adult F63.81 ; Bipolar disorder, unspecified F31.9 and Mild intellectual disability F70 [facility] [address] [id number] [address] [place] [address] [id number] August, Dental caries K02.9 [facility] [address] [facility] [id number] [address] [place] [id number] Jul, Onychomycosis B35.1 ; Other diabetic neurological complication associated with type 2 diabetes mellitus E11.49 and Tinea pedis of both feet B35.3 [facility] [address] [facility] [id number] [address] [place] [address] [id number] Jul, Caries K02.9 [facility] [address] [facility] [id number] [address] [place] [id number] Jul, Type 2 diabetes mellitus wit h complication E11.8 ; Tobacco abuse Z72.0 and Bipolar disorder, unspecified F31.9 [facility] [address] [facility] [id number] [address] [place] [phone] Jun, [facility] [address] [facility] [id number] [address] [place] [address] [id number] Jun, Dental examination Z01.20 an d Oral health maintenance status requiring routine preventive dental care K08.9 [facility] [address] [place] [id number] [address] [place] [id number] May, Bilateral impacted cerumen H 61.23 [facility] [address] [place] [id number] [address] [place] [id number] Apr, Bipolar disorder, unspecifie d F31.9 ; Intermittent explosive disorder in adult F63.81 ; Type 2 diabetes mellitus with complication E11.8 ; Tobacco abuse Z72.0 and Colon cancer screening Z12.11 [facility] [address] [facility] [id number] [address] [place] [id number] Apr, Onychomycosis B35.1 and Othe r diabetic neurological complication associated with type 2 diabetes mellitus E11.49 [facility] [address] [place] [id number] [address] [place] [id number] Apr, Intermittent explosive disor salvatore in adult F63.81 ; Bipolar disorder, unspecified F31.9 and Mild intellectual disability F70 [facility] [address] [place] [id number] [address] [place] [phone] Mar, Diabetes E11.9 [facility] [address] [facility] [id number] [address] [place] [phone] Jan, Encounter for immunization Z 23 [facility] [address] [facility] [id number] [address] [place] [phone] 12 Jan, 2018 Tinea pedis of both feet B35 .3 ; Other diabetic neurological complication associated with type 2 diabetes mellitus E11.49 and Onychomycosis B35.1 [facility] [address] [facility] [id number] [address] [place] [phone] Nov, Type 2 diabetes mellitus wit h complication E11.8 [place] [address] [facility] [id number] [address] [place] [id number] Nov, [facility] [address] [place] [id number] [address] [place] [phone] Oct, Intermittent explosive disor salvatore in adult F63.81 ; Bipolar disorder, unspecified F31.9 and Mild intellectual disability F70 [facility] [address] [facility] [id number] [address] [place] [phone] Oct, [facility] [address] [facility] [id number] [address] [place] [id number] Oct, Dental examination Z01.20 [facility] [address] [place] [id number] [address] [place] [phone] Oct, Onychomycosis B35.1 and Othe r diabetic neurological complication associated with type 2 diabetes mellitus E11.49 [facility] [address] [facility] [id number] [address] [place] [phone] Sep, Type 2 diabetes mellitus wit h complication E11.8 and Colon cancer screening Z12.11 [facility] [address] [facility] [id number] [address] [place] [id number] Sep, Type 2 diabetes mellitus wit h complication E11.8 ; Colon cancer screening Z12.11 and Neuropathy G62.9 [facility] [address] [facility] [id number] [address] [place] [id number] August, Diabetes E11.9 [facility] [address] [id number] [address] [place] [address] [id number] Jul, Dental examination Z01.20 [facility] [address] [facility] [id number] [address] [place] [id number] May, Mild intellectual disability F70 [facility] [address] [facility] [id number] [address] [place] [id number] May, Mild intellectual disability F70 ; High risk medication use Z79.899 ; Intermittent explosive disorder in adult F63.81 and Bipolar disorder, unspecified F31.9 [facility] [address] [facility] [id number] [address] [place] [id number] May, [facility] [address] [facility] [id number] [address] [place] [id number] May, [facility] [address] [facility] [id number] [address] [place] [id number] Apr, Type 2 diabetes mellitus wit h complication E11.8 ; Mild intellectual disability F70 ; Gastroesophageal reflux disease without esophagitis K21.9 ; Reactive airway disease, mild intermittent, uncomplicated J45.20 and Tobacco abuse Z72.0 [facility] [address] [facility] [id number] [address] [place] [id number] Apr, High risk medication use Z79 .899 ; Mild intellectual disability F70 ; Intermittent explosive disorder in adult F63.81 and Bipolar disorder, unspecified F31.9 [facility] [address] [id number] [address] [place] [address] [id number] Mar, Encounter for dental exam an d cleaning w/o abnormal findings Z01.20 [facility] [address] [id number] [address] [place] [address] [id number] Mar, Dental examination Z01.20 [facility] [address] [facility] [id number] [address] [place] [id number] Jan, [facility] [address] [id number] [address] [place] [phone] Jan, [facility] [address] [id number] [address] [place] [id number] 10 Jan, 2017 Mild intellectual disability F70 ; Bipolar disorder, unspecified F31.9 and Intermittent explosive disorder in adult F63.81 [facility] [address] [id number] [address] [place] [id number] 02 Jan, 2017 Diabetes E11.9 [facility] [address] [id number] [address] [place] [address] [id number] 13 Dec, 2016 Encounter for dental examina tion and cleaning without abnormal findings Z01.20 [facility] [address] [id number] [address] [place] [id number] 12 Dec, 2016 Bipolar disorder, unspecifie d F31.9 ; Intermittent explosive disorder in adult F63.81 and Mild intellectual disability F70 [facility] [address] [id number] [address] [place] [id number] Nov, Diabetes E11.9 [facility] [address] [id number] [address] [place] [phone] Nov, [facility] [address] [id number] [address] [place] [phone] Nov, Diabetes E11.9 and Colon can cer screening Z12.[id number] [place] [address] [id number] Sep, Dental examination Z01.20 [facility] [address] [id number] [address] [place] [address] [id number] Sep, Encounter for dental examina tion and cleaning without abnormal findings Z01.20 [facility] [address] [id number] [address] [place] [id number] 13 Sep, 2016 Bipolar disorder, unspecifie d F31.9 [facility] [address] [id number] [address] [place] [id number] Sep, Bipolar disorder, unspecifie d F31.9 [facility] [address] [id number] [address] [place] [id number] Jul, [facility] [address] [facility] [id number] [address] [place] [id number] 13 Jul, 2016 Type 2 diabetes mellitus wit h complication E11.8 [facility] [address] [id number] [address] [place] [address] [id number] 15 Jun, 2016 Encounter for dental examina tion and cleaning without abnormal findings Z01.20 [place] [id number] [facility] [id number] [place] [address] [id number] Jun, Dental examination Z01.20 [facility] [address] [facility] [id number] [address] [place] [phone] Apr, Sports physical Z02.5 [facility] [address] [facility] [id number] [address] [place] [phone] 14 Mar, 2016 Bipolar disorder, in partial remission, most recent episode manic F31.73 and Intermittent explosive disorder in adult F63.81 [facility] [address] [facility] [id number] [address] [place] [id number] 08 Mar, 2016 [facility] [address] [facility] [id number] [address] [place] [id number] 06 Mar, 2016 Diabetes E11.9 [facility] [address] [id number] [address] [place] [address] [id number] Feb, Encounter for dental examina tion and cleaning without abnormal findings Z01.20 [facility] [address] [facility] [id number] [address] [place] [id number] 22 Dec, 2015 Nocturnal hypoxemia G47.34 a nd Encounter for immunization Z23 [facility] [address] [facility] [id number] [address] [place] [id number] 15 Dec, 2015 [facility] [address] [facility] [id number] [address] [place] [id number] 12 Dec, 2015 [facility] [address] [facility] [id number] [address] [place] [id number] Dec, Bipolar disorder, unspecifie d F31.9 [facility] [address] [id number] [address] [place] [address] [id number] 13 Oct, 2015 Encounter for dental examina tion and cleaning without abnormal findings Z01.[address] [place] [address] [id number] [id number] 13 Oct, 2015 Dental examination Z01.20 [facility] [address] [facility] [id number] [address] [place] [id number] 07 Oct, 2015 Diabetes E11.9 [place] [address] [facility] [id number] [address] [place] [id number] Oct, Diabetes E11.9 ; Reactive ai rway disease, mild intermittent, uncomplicated J45.20 and Tobacco abuse Z72.0 [place] [address] [facility] [id number] [address] [place] [id number] Sep, Bipolar disorder, unspecifie d F31.9 and Depression F32.9 [place] [address] [facility] [id number] [address] [place] [phone] Sep, [place] [address] [facility] [id number] [address] [place] [phone] August, Tinea pedis of both feet B35 .3 and DM w/o complication type II, uncontrolled E11.65 [facility] [address] [facility] [id number] [address] [place] [phone] Jul, [facility] [address] [facility] [id number] [address] [place] [id number] Jul, [place] [address] [facility] [id number] [address] [place] [id number] Jul, Obstructive sleep apnea G47. 33 [place] [address] [facility] [id number] [address] [place] [id number] Jun, Diabetes E11.9 [place] [address] [place] [id number] [address] [place] [id number] Jun, [facility] [address] [phone] Jun, [facility] [address] [id number] Jun, Bipolar disorder, unspecifie d F31.9 and Mental retardation F79 [place] [address] [address] Apr, [place] [address] [address] Feb, Diabetes E11.9 ; Encounter f or immunization Z23 ; Cough R05 and Nicotine abuse Z72.0 [place] [address] [phone] Jan, Bipolar disorder, unspecifie d F31.9 and Diabetes mellitus without mention of complication, type II or unspecified type, uncontrolled 250.02 [place] [address] [address] Jan, [place] [address] [address] Dec, Reactive airway disease 493. 90 and Enuresis 788.30 [place] [address] [id number] Dec, [place] [address] [id number] Nov, [place] [address] [phone] Nov, [place] [address] [address] Nov, Annual physical exam V70.0 ; Urinary incontinence 788.30 ; Diabetes 250.00 and Hypertension 401.9 [place] [address] [place] [address] Oct, Diabetes mellitus without me ntion of complication, type II or unspecified type, uncontrolled 250.02 [facility] [address] [id number] [address] [place] [id number] Oct, Diabetes mellitus without me ntion of complication, type II or unspecified type, uncontrolled 250.02 [facility] [address] [id number] [address] [place] [phone] Oct, Diabetes mellitus without me ntion of complication, type II or unspecified type, uncontrolled 250.02 [facility] [address] [id number] [address] [place] [id number] Oct, [facility] [address] [id number] [address] [place] [id number] Oct, [facility] [address] [id number] [address] [place] [phone] Oct, Bipolar disorder, unspecifie d 296.80 [facility] [address] [id number] [address] [place] [address] [id number] Sep, Dental examination V72.2 [facility] [address] [id number] [address] [place] [id number] August, [facility] [address] [id number] [address] [place] [address] [id number] August, Dental examination V72.2 [facility] [address] [id number] [address] [place] [address] August, [facility] [address] [id number] [address] [place] [address] Jul, [facility] [address] [id number] [address] [place] [address] Jul, [facility] [address] [id number] [address] [place] [address] Jun, [facility] [address] [id number] [address] [place] [address] 17 Jun, 2014 [facility] [address] [id number] [address] [place] [address], [place] [address] 17 Jun, 2014 [facility] [address] [id number] [address] [place] [address], [place] [address] 17 Jun, 2014 [facility] [address] [id number] [address] [place] [address], [place] [address] 23 May, 2014 [facility] [address] [id number] [address] [place] [address], [place] [address] 23 May, 2014 [facility] [address] [id number] [address] [place] [address], [place] [address] 16 May, 2014 [facility] [address] [id number] [address] [place] [address], [place] [address] 16 May, 2014 [facility] [address] [id number] [address] [place] [address], [place] [address] 16 May, 2014 [facility] [address] [id number] [address] [place] [address], [place] [address] 16 May, 2014 [facility] [address] [id number] [address] [place] [address], [place] [address] 16 May, 2014 [facility] [address] [id number] [address] [place] [address], [place] [address] 16 May, 2014 [facility] [address] [id number] [address] [place] [address], [place] [address] 16 May, 2014 [facility] [address] [id number] [address] [place] [address], [place] [address] 16 May, 2014 [facility] [address] [id number] [address] [place] [address], [place] [address] 16 May, 2014 [facility] [address] [id number] [address] [place] [address], [place] [address] 16 May, 2014 [facility] [address] [id number] [address] [place] [address], [place] [address] May, [facility] [address] [id number] [address] [place] [address], [place] [address] May, [facility] [address] [id number] [address] [place] [address], [place] [address] May, [facility] [address] [id number] [address] [place] [address], [place] [address] Apr, [facility] [address] [id number] [address] [place] [address], [place] [address] Apr, [facility] [address] [id number] [address] [place] [address], [place] [address] Apr, [facility] [address] [id number] [address] [place] [address], [place] [address] Apr, [facility] [address] [id number] [address] [place] [address], [place] [address] Apr, [facility] [address] [id number] [address] [place] [address], [place] [address] Apr, [facility] [address] [id number] [address] [place] [address], [place] [address] Apr, [facility] [address] [id number] [address] [place] [address], [place] [address] Apr, [facility] [address] [id number] [address] [place] [address], [place] [address] Apr, [facility] [address] [id number] [address] [place] [address], [place] [address] Apr, [facility] [address] [id number] [address] [place] [address], [place] [address] Apr, [facility] [address] [id number] [address] [place] [address], [place] [address] Apr, [facility] [address] [id number] [address] [place] [address], [place] [address] Mar, [facility] [address] [id number] [address] [place] [address], [place] [address] 10 Mar, 2014 [facility] [address] [id number] [address] [place] [address], [place] [address] 10 Mar, 2014 [facility] [address] [id number] [address] [place] [address], [place] [address] 10 Mar, 2014 [facility] [address] [id number] [address] [place] [address], [place] [address] 10 Mar, 2014 [facility] [address] [id number] [address] [place] [address], [place] [address] 10 Mar, 2014 [facility] [address] [id number] [address] [place] [address], [place] [address] Feb, [facility] [address] [id number] [address] [place] [address], [place] [address] Feb, [facility] [address] [id number] [address] [place] [address], [place] [address] Feb, [facility] [address] [id number] [address] [place] [address], [place] [address] Feb, [facility] [address] [id number] [address] [place] [address], [place] [address] 14 Jan, 2014 [facility] [address] [id number] [address] [place] [address], [place] [address] 14 Jan, 2014 [facility] [address] [id number] [address] [place] [address], [place] [address] 14 Jan, 2014 [facility] [address] [id number] [address] [place] [address], [place] [address] 14 Jan, 2014 [facility] [address] [id number] [address] [place] [address], [place] [address] 22 Dec, 2013 [facility] [address] [id number] [address] [place] [address], [place] [address] 22 Dec, 2013 [facility] [address] [id number] [address] [place] [address], [place] [address] Dec, [facility] [address] [id number] [address] [place] [address], [place] [address] Dec, [facility] [address] [id number] [address] [place] [address], [place] [address] Nov, [facility] [address] [id number] [address] [place] [address], [place] [address] Nov, [facility] [address] [id number] [address] [place] [address], [place] [address] Nov, [facility] [address] [id number] [address] [place] [address], [place] [address] Nov, [facility] [address] [id number] [address] [place] [address], [place] [address] Nov, [facility] [address] [id number] [address] [place] [address], [place] [address] Nov, [facility] [address] [id number] [address] [place] [address], [place] [address] Nov, [facility] [address] [id number] [address] [place] [address], [place] [address] Oct, [facility] [address] [id number] [address] [place] [address], [place] [address] Oct, [facility] [address] [id number] [address] [place] [address], [place] [address] Oct, [facility] [address] [id number] [address] [place] [address], [place] [address] Oct, [facility] [address] [id number] [address] [place] [address], [place] [address] Oct, [facility] [address] [id number] [address] [place] [address], [place] [address] Oct, [facility] [address] [id number] [address] [place] [address], [place] [address] Oct, [facility] [address] [id number] [address] [place] [address], [place] [address] Sep, [facility] [address] [id number] [facility] [address] 17 Sep, 2013 [facility] [address] [id number] [address] [place] [address], [place] [address] Sep, [facility] [address] [id number] [address] [place] [address], [place] [address] Sep, [facility] [address] [id number] [address] [place] [address], [place] [address] Sep, [facility] [address] [id number] [address] [place] [address], [place] [address] Jul, [facility] [address] [id number] [address] [place] [address], [place] [address] Jul, [facility] [address] [id number] [address] [place] [address], [place] [address] Jul, [facility] [address] [id number] [address] [place] [address], [place] [address] Jul, [facility] [address] [id number] [address] [place] [address], [place] [address] Jul, [facility] [address] [id number] [address] [place] [address], [place] [address] Jul, [facility] [address] [id number] [address] [place] [address], [place] [address] Jul, [facility] [address] [id number] [address] [place] [address], [place] [address] Jul, [facility] [address] [id number] [address] [place] [address], [place] [address] Jul, [facility] [address] [id number] [address] [place] [address], [place] [address] Jul, [facility] [address] [id number] [address] [place] [address], [place] [address] Jul, [facility] [address] [id number] [address] [place] [address], [place] [address] Jul, [facility] [address] [id number] [address] [place] [address], [place] [address] Jun, [facility] [address] [id number] [address] [place] [address], [place] [address] Jun, [facility] [address] [id number] [address] [place] [address], [place] [address] Jun, [facility] [address] [id number] [address] [place] [address], [place] [address] Jun, [facility] [address] [id number] [address] [place] [address], [place] [address] Jun, [facility] [address] [id number] [address] [place] [address], [place] [address] Jun, [facility] [address] [id number] [address] [place] [address], [place] [address] Jun, [facility] [address] [id number] [address] [place] [address], [place] [address] Jun, [facility] [address] [id number] [address] [place] [address], [place] [address] May, [facility] [address] [id number] [address] [place] [address], [place] [address] May, [facility] [address] [id number] [address] [place] [address], [place] [address] May, [facility] [address] [id number] [address] [place] [address], [place] [address] May, [facility] [address] [id number] [address] [place] [address], [place] [address] May, [facility] [address] [id number] [address] [place] [address], [place] [address] May, [facility] [address] [id number] [address] [place] [address], [place] [address] May, [facility] [address] [id number] [address] [place] [address], [place] [address] May, [facility] [address] [id number] [address] [place] [address], [place] [address] Apr, [facility] [address] [id number] [address] [place] [address], [place] [address] Apr, [facility] [address] [id number] [address] [place] [address], [place] [address] Apr, [facility] [address] [id number] [address] [place] [address], [place] [address] Apr, [facility] [address] [id number] [address] [place] [address], [place] [address] Mar, [facility] [address] [id number] [address] [place] [address], [place] [address] Mar, [facility] [address] [id number] [address] [place] [address], [place] [address] Mar, [facility] [address] [id number] [address] [place] [address], [place] [address] Feb, [facility] [address] [id number] [address] [place] [address], [place] [address] Feb, [facility] [address] [id number] [address] [place] [address], [place] [address] Feb, [facility] [address] [id number] [address] [place] [address], [place] [address] Feb, [facility] [address] [id number] [address] [place] [address], [place] [address] Feb, [facility] [address] [id number] [address] [place] [address], [place] [address] Feb, [facility] [address] [id number] [address] [place] [address], [place] [address] Jan, [facility] [address] [id number] [address] [place] [address], [place] [address] Jan, [facility] [address] [id number] [address] [place] [address], [place] [address] Jan, [facility] [address] [id number] [address] [place] [address], [place] [address] Jan, [facility] [address] [id number] [address] [place] [address], [place] [address] Jan, [facility] [address] [id number] [address] [place] [address], [place] [address] Jan, [facility] [address] [id number] [address] [place] [address], [place] [address] Jan, [facility] [address] [id number] [address] [place] [address], [place] [address] Dec, [facility] [address] [id number] [address] [place] [address], [place] [address] 16 Dec, 2012 [facility] [address] [id number] [address] [place] [address], [place] [address] Dec, [facility] [address] [id number] [address] [place] [address], [place] [address] 05 Dec, 2012 [facility] [address] [id number] [address] [place] [address], [place] [address] Nov, [facility] [address] [id number] [address] [place] [address], [place] [address] Nov, [facility] [address] [id number] [address] [place] [address], [place] [address] Nov, [facility] [address] [id number] [address] [place] [address], [place] [address] Nov, [facility] [address] [id number] [address] [place] [address], [place] [address] Nov, [facility] [address] [id number] [address] [place] [address], [place] [address] Nov, [facility] [address] [id number] [address] [place] [address], [place] [address] Nov, [facility] [address] [id number] [address] [place] [address], [place] [address] Oct, [facility] [address] [id number] [address] [place] [address], [place] [address] Oct, [facility] [address] [id number] [address] [place] [address], [place] [address] Oct, [facility] [address] [id number] [address] [place] [address], [place] [address] Oct, [facility] [address] [id number] [address] [place] [address], [place] [address] Oct, [facility] [address] [id number] [address] [place] [address], [place] [address] Oct, [facility] [address] [id number] [address] [place] [address], [place] [address] Oct, [facility] [address] [id number] [address] [place] [address], [place] [address] Oct, [facility] [address] [id number] [address] [place] [address], [place] [address] Sep, [facility] [address] [facility] [id number] [id number] August, [facility] [address] [id number] [address] [place] [address] August, [facility] [address] [id number] [address] [place] [address], [place] [address] Jul, [facility] [address] [id number] [address] [place] [address], [place] [address] Jul, [facility] [address] [id number] [address] [place] [address], [place] [address] Jul, [facility] [address] [id number] [address] [place] [address], [place] [address] 22 Jul, 2012 [facility] [address] [id number] [address] [place] [address], [place] [address] 18 Jul, 2012 [facility] [address] [id number] [address] [place] [address], [place] [address] 17 Jul, 2012 [facility] [address] [id number] [address] [place] [address], [place] [address] 16 Jul, 2012 [facility] [address] [id number] [address] [place] [address], [place] [address] 21 Jun, 2012 [facility] [address] [id number] [address] [place] [address], [place] [address] 18 Jun, 2012 [facility] [address] [id number] [address] [place] [address], [place] [address] 11 Jun, 2012 [facility] [address] [id number] [address] [place] [address], [place] [address] 04 Jun, 2012 [facility] [address] [id number] [address] [place] [address], [place] [address] 04 Jun, 2012 [facility] [address] [id number] [address] [place] [address], [place] [address] 19 May, 2012 [facility] [address] [id number] [address] [place] [address], [place] [address] 18 May, 2012 [facility] [address] [id number] [address] [place] [address], [place] [address] 04 May, 2012 [facility] [address] [id number] [address] [place] [address], [place] [address] 15 Apr, 2012 [facility] [address] [id number] [address] [place] [address], [place] [address] 14 Apr, 2012 [facility] [address] [id number] [address] [place] [address], [place] [address] 07 Apr, 2012 [facility] [address] [id number] [address] [place] [address], [place] [address] Mar, [facility] [address] [id number] [address] [place] [address], [place] [address] Mar, [facility] [address] [id number] [address] [place] [address], [place] [address] Mar, [facility] [address] [id number] [address] [place] [address], [place] [address] Mar, [facility] [address] [id number] [address] [place] [address], [place] [address] Mar, [facility] [address] [id number] [address] [place] [address], [place] [address] Mar, [facility] [address] [id number] [address] [place] [address], [place] [address] Feb, [facility] [address] [id number] [address] [place] [address], [place] [address] Feb, [facility] [address] [id number] [address] [place] [address], [place] [address] Jan, [facility] [address] [id number] [address] [place] [address], [place] [address] Jan, [facility] [address] [id number] [address] [place] [address], [place] [address] Dec, [facility] [address] [id number] [address] [place] [address], [place] [address] Nov, [facility] [address] [id number] [address] [place] [address], [place] [address] Nov, [facility] [address] [id number] [address] [place] [address], [place] [address] Nov, [facility] [address] [id number] [address] [place] [address], [place] [address] Nov, [facility] [address] [id number] [address] [place] [address], [place] [address] Oct, [facility] [address] [id number] [address] [place] [address], [place] [address] Oct, [facility] [address] [id number] [address] [place] [address], [place] [address] Oct, [facility] [address] [id number] [address] [place] [address], [place] [address] 15 Sep, 2011 [facility] [address] [id number] [address] [place] [address], [place] [address] Sep, [facility] [address] [id number] [address] [place] [address], [place] [address] Sep, [facility] [address] [id number] [address] [place] [address], [place] [address] August, [facility] [address] [id number] [address] [place] [address], [place] [address] August, [facility] [address] [id number] [address] [place] [address], [place] [address] Jul, [facility] [address] [id number] [address] [place] [address], [place] [address] 24 Jul, 2011 [facility] [address] [id number] [address] [place] [address], [place] [address] Jul, [facility] [address] [id number] [address] [place] [address], [place] [address] Jul, [facility] [address] [id number] [address] [place] [address], [place] [address] Jun, [facility] [address] [id number] [address] [place] [address], [place] [address] May, [facility] [address] [id number] [address] [place] [address], [place] [address] Apr, [facility] [address] [id number] [address] [place] [address], [place] [address] Apr, [facility] [address] [id number] [address] [place] [address], [place] [address] Apr, [facility] [address] [id number] [address] [place] [address], [place] [address] Apr, [facility] [address] [id number] [address] [place] [address], [place] [address] Apr, [facility] [address] [id number] [address] [place] [address], [place] [address] Apr, [facility] [address] [id number] [address] [place] [address], [place] [address] Mar, [facility] [address] [id number] [address] [place] [address], [place] [address] Mar, [facility] [address] [id number] [address] [place] [address], [place] [address] Feb, [facility] [address] [id number] [address] [place] [address], [place] [address] Feb, [facility] [address] [id number] [address] [place] [address], [place] [address] Feb, [facility] [address] [id number] [address] [place] [address], [place] [address] Feb, [facility] [address] [id number] [address] [place] [address], [place] [address] Jan, [facility] [address] [id number] [address] [place] [address], [place] [address] Jan, [facility] [address] [id number] [address] [place] [address], [place] [address] Jan, [facility] [address] [id number] [address] [place] [address], [place] [address] Jan, [facility] [address] [id number] [address] [place] [address], [place] [address] Nov, [facility] [address] [id number] [address] [place] [address], [place] [address] Mar, [facility] [address] [id number] [address] [place] [address], [place] [address] 02 Mar, 2010 [facility] [address] [id number] [address] [place] [address], [place] [address] 30 Feb, 2010 [facility] [address] [id number] [address] [place] [address], [place] [address] 15 Feb, 2010 [facility] [address] [id number] [address] [place] [address], [place] [address] 19 Jan, 2010 [facility] [address] [id number] [address] [place] [address], [place] [id number] 19 Jan, 2010 [facility] [address] [id number] [address] [place] [address], [place] [id number] 15 Sep, 2009 [facility] [address] [id number] [address] [place] [id number] 16 May, 2009 [facility] [address] [id number] [address] [place] [address], [place] [id number] Apr, [facility] [address] [id number] [address] [place] [phone] Mar, [facility] [address] [id number] [address] [place] [phone] 15 Feb, 2009 [facility] [address] [id number] [address] [place] [phone] 10 Feb, 2009 [facility] [address] [id number] [address] [place] [id number] 10 Feb, 2009 [facility] [address] [id number] [address] [place] [id number] 22 Jan, 2009 [facility] [address] [id number] [address] [place] [phone] 13 Jan, 2009 [facility] [address] [id number] [address] [place] [phone] 13 Jan, 2009 [facility] [address] [id number] [address] [place] [phone] 11 Jan, 2009 [facility] [address] [id number] [facility] [place] [address] August, IMMUNIZATIONS No Known Immunizations SOCIAL HISTORY [...] ied 09/2019 Hospitalization History surgery Hospitalization History [facility], [facility] treatment few times for BH
--- OUTSIDE RECORDS SUMMARY | 2019-11-26 06:15 | XMS REPORT ---
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 Active 84401249 Problem Hypertensive retinopathy of both eyes H35.033 Active 0730321 Problem Open-angle glaucoma of both eyes, unspecified glaucoma stage, unspecified open-angle glaucoma type H40.10X0 Acti ve 89938082 Problem Obstructive sleep apnea G47.33 Active 20866843 Problem Type 2 diabetes mellitus with complication E11.8 Active 83391705 Problem Intermittent explosive disorder in adult F63.81 Active 77270653 Problem Bipolar disorder, unspecified F31.9 Active 01427340 Problem Mild intellectual disability F70 A ctive 78753909 Problem Other specified urinary incontinence N39.498 Active 753538556 Problem Diabetes E11.9 Active 20249818 Problem Type 2 diabetes mellitus wit h diabetic neuropathy, unspecified whether [facility] insulin use E11.40 Active 220453 488975105 Problem Essential hypertension I10 Active 57697381 Problem Reactive airway disease, mild intermittent, uncomplicated J45.20 Active 804017929 Problem Gastroesophageal reflux disease without esophagitis K21.9 Active 620481720 Problem Other diabetic neurological complication associated with type 2 diabetes mellitus E11.49 Active 320944911 Problem Neuropathy G62.9 Active 189941778 ALLERGIES No Information ENCOUNTERS Encounter Location Date Diagnosis [facility] [address] [facility] [id number] [address] [place] [phone] Jan, [facility] [address] [facility] [id number] [address] [place] [phone] Dec, [facility] [address] [facility] [id number] [address] [place] [phone] Oct, [facility] [address] [facility] [id number] [address] [place] [phone] Oct, [facility] [address] [facility] [id number] [address] [place] [phone] Oct, Callus of foot L84 ; Hyperhi drosis R61 ; Onychomycosis B35.1 and Tinea pedis of both feet B35.3 [place] [address] [id number] [address] [place] [phone] Sep, [place] [address] [facility] [id number] [address] [place] [phone] Sep, [place] [address] [facility] [id number] [address] [place] [phone] Sep, [place] [address] [facility] [id number] [address] [place] [phone] Sep, Essential hypertension I10 [place] [address] [facility] [id number] [address] [place] [phone] August, Intermittent explosive disor salvatore in adult F63.81 ; Bipolar disorder, unspecified F31.9 and Mild intellectual disability F70 [place] [address] [facility] [id number] [address] [place] [phone] Jul, Type 2 diabetes mellitus wit h diabetic neuropathy, unspecified whether intermediate accountant insulin use E11.40 and Colon cancer screening Z12.11 [place] [address] [address] [facility] [id number] [address] [place] [phone] Jul, Type 2 diabetes mellitus wit h diabetic neuropathy, unspecified whether [facility] insulin use E11.40 and Tinea pedis, unspecified laterality B35.3 [place] [address] [facility] [id number] [address] [place] [phone] Jun, [place] [address] [facility] [id number] [address] [place] [phone] 10 Jun, 2019 [facility] [address] [facility] [id number] [address] [place] [phone] 04 Jun, 2019 Dysuria R30.0 [facility] [address] [facility] [id number] [address] [place] [phone] Jun, [facility] [address] [facility] [id number] [address] [place] [phone] 20 May, 2019 Influenza J11.1 [facility] [address] [facility] [id number] [address] [place] [phone] 13 May, 2019 Intermittent explosive disor salvatore in adult F63.81 [facility] [address] [facility] [id number] [address] [place] [phone] May, [facility] [address] [facility] [id number] [address] [place] [phone] Apr, Intermittent explosive disor salvatore in adult F63.81 ; Bipolar disorder, unspecified F31.9 and Mild intellectual disability F70 OUTREACH [facility] [address] [place] [id number] [place] [phone] Apr, Oral health maintenance stat us requiring routine preventive dental care K08.9 [facility] [address] [facility] [id number] [address] [place] [phone] Apr, Type 2 diabetes mellitus wit h complication E11.8 ; History of test for hearing Z92.89 ; Colon cancer screening Z12.11 ; Other specified urinary incontinence N39.498 and Impacted cerumen, right ear H61.21 [facility] [address] [facility] [id number] [address] [place] [phone] 10 Apr, 2019 Onychomycosis B35.1 ; Other diabetic neurological complication associated with type 2 diabetes mellitus E11.49 and Tinea pedis of both feet B35.3 [facility] [address] [facility] [id number] [address] [place] [phone] Feb, [facility] [address] [place] [id number] [address] [place] [phone] Jan, [facility] [address] [id number] [address] [place] [phone] Jan, [facility] [address] [id number] [address] [place] [phone] Jan, [facility] [address] [id number] [address] [place] [phone] Jan, [facility] [address] [id number] [address] [place] [phone] Jan, [facility] [address] [id number] [address] [place] [phone] Jan, [facility] [address] [id number] [address] [place] [phone] Jan, [facility] [address] [id number] [address] [place] [phone] Jan, Anemia D64.9 OUTREACH [facility] [id number] [place] [phone] Jan, Dental examination Z01.20 an d Oral health maintenance status requiring routine preventive dental care K08.9 [facility] [address] [id number] [address] [place] [phone] Jan, Onychomycosis B35.1 and Othe r diabetic neurological complication associated with type 2 diabetes mellitus E11.49 [facility] [address] [id number] [address] [place] [phone] Jan, Anemia D64.9 [facility] [address] [id number] [address] [place] [phone] Jan, [facility] [address] [id number] [address] [place] [phone] Dec, Urinary tract infection with out hematuria, site unspecified N39.0 [facility] [address] [id number] [address] [place] [phone] 30 Dec, 2018 Type 2 diabetes mellitus wit h complication E11.8 ; Urinary tract infection without hematuria, site unspecified N39.0 ; Impacted cerumen of both ears H61.23 ; Encounter for immunization Z23 and Hyponatremia E87.1 [facility] [address] [facility] [id number] [address] [place] [phone] 30 Dec, 2018 Intermittent explosive disor salvatore in adult F63.81 ; Dysuria R30.0 ; Type 2 diabetes mellitus with complication E11.8 ; Bipolar disorder, unspecified F31.9 and Mild intellectual disability F70 [facility] [address] [facility] [id number] [address] [place] [phone] Dec, Dysuria R30.0 [facility] [address] [facility] [id number] [address] [place] [phone] Dec, Intermittent explosive disor salvatore in adult F63.81 ; Bipolar disorder, unspecified F31.9 and Mild intellectual disability F70 [facility] [address] [facility] [id number] [address] [place] [phone] Nov, [facility] [address] [facility] [id number] [address] [place] [phone] Oct, OUTREACH [facility] [address] [place] [id number] [place] [phone] Oct, Oral health maintenance stat us requiring routine preventive dental care K08.9 [facility] [address] [facility] [id number] [address] [place] [phone] August, Intermittent explosive disor salvatore in adult F63.81 ; Bipolar disorder, unspecified F31.9 and Mild intellectual disability F70 [facility] [address] [id number] [address] [place] [id number] August, Dental caries K02.9 [facility] [address] [facility] [id number] [address] [place] [phone] Jul, Onychomycosis B35.1 ; Other diabetic neurological complication associated with type 2 diabetes mellitus E11.49 and Tinea pedis of both feet B35.3 [facility] [address] [place] [id number] [address] [place] [address] [id number] 18 Jul, 2018 Caries K02.9 [place] [address] [phone] 15 Jul, 2018 Type 2 diabetes mellitus wit h complication E11.8 ; Tobacco abuse Z72.0 and Bipolar disorder, unspecified F31.9 [place] [address] [phone] Jun, [facility] [id number] [place] [address] [id number] Jun, Dental examination Z01.20 an d Oral health maintenance status requiring routine preventive dental care K08.9 [place] [address] [phone] 11 May, 2018 Bilateral impacted cerumen H 61.23 [place] [address] [address] Apr, Bipolar disorder, unspecifie d F31.9 ; Intermittent explosive disorder in adult F63.81 ; Type 2 diabetes mellitus with complication E11.8 ; Tobacco abuse Z72.0 and Colon cancer screening Z12.11 [place] [address] [place] [id number] [address] [place] [address] Apr, Onychomycosis B35.1 and Othe r diabetic neurological complication associated with type 2 diabetes mellitus E11.49 [facility] [address] [phone] Apr, Intermittent explosive disor salvatore in adult F63.81 ; Bipolar disorder, unspecified F31.9 and Mild intellectual disability F70 [place] [address] [id number] 03 Mar, 2018 Diabetes E11.9 [facility] [address] [place] [id number] [address] [place] [phone] Jan, Encounter for immunization Z 23 [place] [address] [id number] [address] [place] [phone] Jan, Tinea pedis of both feet B35 .3 ; Other diabetic neurological complication associated with type 2 diabetes mellitus E11.49 and Onychomycosis B35.1 [facility] [address] [id number] [address] [place] [phone] Nov, Type 2 diabetes mellitus wit h complication E11.8 [place] [address] [facility] [id number] [address] [place] [phone] Nov, [facility] [address] [facility] [id number] [address] [place] [phone] Oct, Intermittent explosive disor salvatore in adult F63.81 ; Bipolar disorder, unspecified F31.9 and Mild intellectual disability F70 [place] [address] [facility] [id number] [address] [place] [phone] Oct, [facility] [address] [id number] [address] [place] [address] [id number] Oct, Dental examination Z01.20 [facility] [address] [facility] [id number] [address] [place] [phone] Oct, Onychomycosis B35.1 and Othe r diabetic neurological complication associated with type 2 diabetes mellitus E11.49 [facility] [address] [facility] [id number] [address] [place] [phone] Sep, Type 2 diabetes mellitus wit h complication E11.8 and Colon cancer screening Z12.11 [facility] [address] [id number] [address] [place] [phone] Sep, Type 2 diabetes mellitus wit h complication E11.8 ; Colon cancer screening Z12.11 and Neuropathy G62.9 [facility] [address] [id number] [address] [place] [phone] August, Diabetes E11.9 [facility] [address] [id number] [address] [place] [address] [id number] Jul, Dental examination Z01.20 [facility] [address] [facility] [id number] [address] [place] [phone] May, Mild intellectual disability F70 [facility] [address] [facility] [id number] [address] [place] [phone] May, Mild intellectual disability F70 ; High risk medication use Z79.899 ; Intermittent explosive disorder in adult F63.81 and Bipolar disorder, unspecified F31.9 [facility] [address] [facility] [id number] [address] [place] [phone] May, [facility] [address] [facility] [id number] [address] [place] [phone] May, [place] [address] [place] [id number] [place] [phone] Apr, Type 2 diabetes mellitus wit h complication E11.8 ; Mild intellectual disability F70 ; Gastroesophageal reflux disease without esophagitis K21.9 ; Reactive airway disease, mild intermittent, uncomplicated J45.20 and Tobacco abuse Z72.0 [facility] [address] [place] [id number] [address] [place] [phone] Apr, High risk medication use Z79 .899 ; Mild intellectual disability F70 ; Intermittent explosive disorder in adult F63.81 and Bipolar disorder, unspecified F31.9 [facility] [id number] [place] [address] [id number] Mar, Dental examination Z01.20 [facility] [address] [id number] [address] [place] [address] [id number] Mar, Encounter for dental exam an d cleaning w/o abnormal findings Z01.20 [facility] [address] [facility] [id number] [address] [place] [phone] Jan, [facility] [address] [facility] [id number] [address] [place] [phone] Jan, [facility] [address] [facility] [id number] [address] [place] [phone] Jan, Mild intellectual disability F70 ; Bipolar disorder, unspecified F31.9 and Intermittent explosive disorder in adult F63.81 [facility] [address] [id number] [address] [place] [phone] 02 Jan, 2017 Diabetes E11.9 [facility] [address] [id number] [address] [place] [address] [id number] 13 Dec, 2016 Encounter for dental examina tion and cleaning without abnormal findings Z01.20 [facility] [address] [id number] [address] [place] [phone] 12 Dec, 2016 Bipolar disorder, unspecifie d F31.9 ; Intermittent explosive disorder in adult F63.81 and Mild intellectual disability F70 [facility] [address] [id number] [address] [place] [phone] Nov, Diabetes E11.9 [facility] [address] [id number] [address] [place] [phone] Nov, [facility] [address] [id number] [address] [place] [phone] Nov, Diabetes E11.9 and Colon can cer screening Z12.[id number] [place] [address] [id number] Sep, Dental examination Z01.20 [facility] [address] [id number] [address] [place] [address] [id number] 21 Sep, 2016 Encounter for dental examina tion and cleaning without abnormal findings Z01.20 [facility] [address] [id number] [address] [place] [phone] 13 Sep, 2016 Bipolar disorder, unspecifie d F31.9 [facility] [address] [id number] [address] [place] [phone] Sep, Bipolar disorder, unspecifie d F31.9 [facility] [address] [id number] [address] [place] [phone] Jul, [facility] [address] [id number] [address] [place] [phone] Jul, Type 2 diabetes mellitus wit h complication E11.8 [facility] [id number] [place] [address] [id number] 15 Jun, 2016 Dental examination Z01.20 [facility] [address] [id number] [address] [place] [address] [id number] 15 Jun, 2016 Encounter for dental examina tion and cleaning without abnormal findings Z01.20 [facility] [address] [facility] [id number] [address] [place] [phone] 18 Apr, 2016 Sports physical Z02.5 [facility] [address] [facility] [id number] [place] [phone] 14 Mar, 2016 Bipolar disorder, in partial remission, most recent episode manic F31.73 and Intermittent explosive disorder in adult F63.81 [facility] [address] [facility] [id number] [address] [place] [phone] Mar, [facility] [address] [facility] [id number] [address] [place] [phone] Mar, Diabetes E11.9 [facility] [id number] [place] [address] [id number] Feb, Encounter for dental examina tion and cleaning without abnormal findings Z01.20 [facility] [address] [facility] [id number] [address] [place] [phone] 22 Dec, 2015 Nocturnal hypoxemia G47.34 a nd Encounter for immunization Z23 [facility] [address] [facility] [id number] [address] [place] [phone] 15 Dec, 2015 [facility] [address] [facility] [id number] [address] [place] [phone] Dec, [facility] [address] [facility] [id number] [address] [place] [phone] Dec, Bipolar disorder, unspecifie d F31.9 [facility] [address] [facility] [id number] [address] [place] [address] [id number] Oct, Encounter for dental examina tion and cleaning without abnormal findings Z01.20 [facility] [id number] [place] [address] [id number] 13 Oct, 2015 Dental examination Z01.20 [facility] [address] [facility] [id number] [address] [place] [phone] 07 Oct, 2015 Diabetes E11.9 [facility] [address] [facility] [id number] [address] 05 Oct, 2015 Diabetes E11.9 ; Reactive ai rway disease, mild intermittent, uncomplicated J45.20 and Tobacco abuse Z72.0 [place] [address] [phone] Sep, Bipolar disorder, unspecifie d F31.9 and Depression F32.9 [place] [id number] [place] [id number] Sep, [facility] [address] [place] [id number] [address] [place] [id number] August, Tinea pedis of both feet B35 .3 and DM w/o complication type II, uncontrolled E11.65 [place] [address] [address] [place] [id number] [place] [id number] Jul, [facility] [address] [place] [id number] [address] [place] [id number] Jul, [facility] [address] [facility] [id number] [address] [place] [id number] Jul, Obstructive sleep apnea G47. 33 [facility] [address] [facility] [id number] [address] [place] [id number] Jun, Diabetes E11.9 [facility] [address] [facility] [id number] [address] [place] [id number] Jun, [facility] [address] [facility] [id number] [address] [place] [id number] Jun, [facility] [address] [address] Jun, Bipolar disorder, unspecifie d F31.9 and Mental retardation F79 [place] [address] [address] Apr, [place] [address] [address] Feb, Diabetes E11.9 ; Encounter f or immunization Z23 ; Cough R05 and Nicotine abuse Z72.0 [place] [address] [address] Jan, Bipolar disorder, unspecifie d F31.9 and Diabetes mellitus without mention of complication, type II or unspecified type, uncontrolled 250.02 [place] [address] [address] Jan, [place] [address] [address] Dec, Reactive airway disease 493. 90 and Enuresis 788.30 [place] [address] [address] Dec, [place] [address] [address] Nov, [place] [address] [address] Nov, [place] [address] [address] Nov, Annual physical exam V70.0 ; Urinary incontinence 788.30 ; Diabetes 250.00 and Hypertension 401.9 [place] [address] [address] Oct, Diabetes mellitus without me ntion of complication, type II or unspecified type, uncontrolled 250.02 [place] [address] [address] Oct, Diabetes mellitus without me ntion of complication, type II or unspecified type, uncontrolled 250.02 [facility] [address] [id number] [address] [place] [address] Oct, Diabetes mellitus without me ntion of complication, type II or unspecified type, uncontrolled 250.02 [facility] [address] [id number] [address] [place] [address] Oct, [facility] [address] [id number] [address] [place] [address] Oct, [facility] [address] [id number] [address] [place] [address] Oct, Bipolar disorder, unspecifie d 296.80 [facility] [address] [id number] [address] [place] [id number] Sep, Dental examination V72.2 [facility] [address] [id number] [address] [place] [address] August, [facility] [address] [id number] [address] [place] [id number] August, Dental examination V72.2 [facility] [address] [id number] [address] [place] [phone] August, [facility] [address] [id number] [address] [place] [phone] Jul, [facility] [address] [id number] [address] [place] [phone] Jul, [facility] [address] [id number] [address] [place] [id number] Jun, [facility] [address] [id number] [address] [place] [phone] Jun, [facility] [address] [id number] [address] [place] [phone] Jun, [facility] [address] [id number] [address] [place] [phone] Jun, 2014 [facility] [address] [id number] [address] [place] [address], [place] [address] 23 May, 2014 [facility] [address] [id number] [address] [place] [address], [place] [address] 23 May, 2014 [facility] [address] [id number] [address] [place] [address], [place] [address] 16 May, 2014 [facility] [address] [id number] [address] [place] [address], [place] [address] 16 May, 2014 [facility] [address] [id number] [address] [place] [address], [place] [address] 16 May, 2014 [facility] [address] [id number] [address] [place] [address], [place] [address] 16 May, 2014 [facility] [address] [id number] [address] [place] [address], [place] [address] 16 May, 2014 [facility] [address] [id number] [address] [place] [address], [place] [address] 16 May, 2014 [facility] [address] [id number] [address] [place] [address], [place] [address] 16 May, 2014 [facility] [address] [id number] [address] [place] [address], [place] [address] 16 May, 2014 [facility] [address] [id number] [address] [place] [address], [place] [address] 16 May, 2014 [facility] [address] [id number] [address] [place] [address], [place] [address] 16 May, 2014 [facility] [address] [id number] [address] [place] [address], [place] [address] 16 May, 2014 [facility] [address] [id number] [address] [place] [address], [place] [address] 16 May, 2014 [facility] [address] [id number] [address] [place] [address], [place] [address] May, [facility] [address] [id number] [address] [place] [address], [place] [address] Apr, [facility] [address] [id number] [address] [place] [address], [place] [address] Apr, [facility] [address] [id number] [address] [place] [address], [place] [address] Apr, [facility] [address] [id number] [address] [place] [address], [place] [address] Apr, [facility] [address] [id number] [address] [place] [address], [place] [address] Apr, [facility] [address] [id number] [address] [place] [address], [place] [address] Apr, [facility] [address] [id number] [address] [place] [address], [place] [address] Apr, [facility] [address] [id number] [address] [place] [address], [place] [address] Apr, [facility] [address] [id number] [address] [place] [address], [place] [address] Apr, [facility] [address] [id number] [address] [place] [address], [place] [address] Apr, [facility] [address] [id number] [address] [place] [address], [place] [address] Apr, [facility] [address] [id number] [address] [place] [address], [place] [address] Apr, [facility] [address] [id number] [address] [place] [address], [place] [address] Mar, [facility] [address] [id number] [address] [place] [address], [place] [address] Mar, [facility] [address] [id number] [address] [place] [address], [place] [address] Mar, [facility] [address] [id number] [address] [place] [phone] 10 Mar, 2014 [facility] [address] [id number] [address] [place] [address], [place] [address] 10 Mar, 2014 [facility] [address] [id number] [address] [place] [address], [place] [address] Mar, [facility] [address] [id number] [address] [place] [address], [place] [address] Feb, [facility] [address] [id number] [address] [place] [address], [place] [address] Feb, [facility] [address] [id number] [address] [place] [address], [place] [address] Feb, [facility] [address] [id number] [address] [place] [address], [place] [address] Feb, [facility] [address] [id number] [address] [place] [address], [place] [address] 14 Jan, 2014 [facility] [address] [id number] [address] [place] [address], [place] [address] 14 Jan, 2014 [facility] [address] [id number] [address] [place] [address], [place] [address] 14 Jan, 2014 [facility] [address] [id number] [address] [place] [address], [place] [address] 14 Jan, 2014 [facility] [address] [id number] [address] [place] [address], [place] [address] 22 Dec, 2013 [facility] [address] [id number] [address] [place] [address], [place] [address] 22 Dec, 2013 [facility] [address] [id number] [address] [place] [address], [place] [address] 15 Dec, 2013 [facility] [address] [id number] [address] [place] [address], [place] [address] 15 Dec, 2013 [facility] [address] [id number] [address] [place] [address], [place] [address] Nov, [facility] [address] [id number] [facility] [address] Nov, [facility] [address] [id number] [facility] [address] Nov, [facility] [address] [id number] [facility] [address] Nov, [facility] [address] [id number] [address] [place] [address], [place] [address] Nov, [facility] [address] [id number] [address] [place] [address], [place] [address] Nov, [facility] [address] [id number] [address] [place] [address], [place] [address] Nov, [facility] [address] [id number] [address] [place] [address], [place] [address] Oct, [facility] [address] [id number] [address] [place] [address], [place] [address] Oct, [facility] [address] [id number] [address] [place] [address], [place] [address] Oct, [facility] [address] [id number] [address] [place] [address], [place] [address] Oct, [facility] [address] [id number] [address] [place] [address], [place] [address] Oct, [facility] [address] [id number] [address] [place] [address], [place] [address] Oct, [facility] [address] [id number] [address] [place] [address], [place] [address] Oct, [facility] [address] [id number] [address] [place] [address], [place] [address] Sep, [facility] [address] [id number] [address] [place] [address], [place] [address] Sep, [facility] [address] [id number] [address] [place] [address], [place] [address] Sep, [facility] [address] [id number] [facility] [address] Sep, [facility] [address] [id number] [address] [place] [address], [place] [address] Sep, [facility] [address] [id number] [address] [place] [address], [place] [address] Jul, [facility] [address] [id number] [address] [place] [address], [place] [address] Jul, [facility] [address] [id number] [address] [place] [address], [place] [address] Jul, [facility] [address] [id number] [address] [place] [address], [place] [address] Jul, [facility] [address] [id number] [address] [place] [address], [place] [address] Jul, [facility] [address] [id number] [address] [place] [address], [place] [address] Jul, [facility] [address] [id number] [address] [place] [address], [place] [address] Jul, [facility] [address] [id number] [address] [place] [address], [place] [address] Jul, [facility] [address] [id number] [address] [place] [address], [place] [address] Jul, [facility] [address] [id number] [address] [place] [address], [place] [address] Jul, [facility] [address] [id number] [address] [place] [address], [place] [address] Jul, [facility] [address] [id number] [address] [place] [address], [place] [address] Jul, [facility] [address] [id number] [address] [place] [address], [place] [address] Jun, [facility] [address] [id number] [address] [place] [address], [place] [address] Jun, [facility] [address] [id number] [address] [place] [address], [place] [address] Jun, [facility] [address] [id number] [address] [place] [address], [place] [address] Jun, [facility] [address] [id number] [address] [place] [address], [place] [address] Jun, [facility] [address] [id number] [address] [place] [address], [place] [address] Jun, [facility] [address] [id number] [address] [place] [address], [place] [address] Jun, [facility] [address] [id number] [address] [place] [address], [place] [address] Jun, [facility] [address] [id number] [address] [place] [address], [place] [address] May, [facility] [address] [id number] [address] [place] [address], [place] [address] May, [facility] [address] [id number] [address] [place] [address], [place] [address] May, [facility] [address] [id number] [address] [place] [address], [place] [address] May, [facility] [address] [id number] [address] [place] [address], [place] [address] May, [facility] [address] [id number] [address] [place] [address], [place] [address] May, [facility] [address] [id number] [address] [place] [address], [place] [address] May, [facility] [address] [id number] [address] [place] [address], [place] [address] May, [facility] [address] [id number] [address] [place] [address], [place] [address] Apr, [facility] [address] [id number] [address] [place] [address], [place] [address] Apr, [facility] [address] [id number] [address] [place] [address], [place] [address] Apr, [facility] [address] [id number] [address] [place] [address], [place] [address] Apr, [facility] [address] [id number] [address] [place] [address], [place] [address] Mar, [facility] [address] [id number] [address] [place] [address], [place] [address] Mar, [facility] [address] [id number] [address] [place] [address], [place] [address] Mar, [facility] [address] [id number] [address] [place] [address], [place] [address] Feb, [facility] [address] [id number] [address] [place] [address], [place] [address] Feb, [facility] [address] [id number] [address] [place] [address], [place] [address] Feb, [facility] [address] [id number] [address] [place] [address], [place] [address] Feb, [facility] [address] [id number] [address] [place] [address], [place] [address] Feb, [facility] [address] [id number] [address] [place] [address], [place] [address] Feb, [facility] [address] [id number] [address] [place] [address], [place] [address] Jan, [facility] [address] [id number] [address] [place] [address], [place] [address] Jan, [facility] [address] [id number] [address] [place] [address], [place] [address] Jan, [facility] [address] [id number] [address] [place] [address], [place] [address] Jan, [facility] [address] [id number] [address] [place] [address], [place] [address] Jan, [facility] [address] [id number] [address] [place] [address], [place] [address] Jan, [facility] [address] [id number] [address] [place] [address], [place] [address] Jan, [facility] [address] [id number] [address] [place] [address], [place] [address] Dec, [facility] [address] [id number] [address] [place] [address], [place] [address] 16 Dec, 2012 [facility] [address] [id number] [address] [place] [address], [place] [address] Dec, [facility] [address] [id number] [address] [place] [address], [place] [address] 05 Dec, 2012 [facility] [address] [id number] [address] [place] [address], [place] [address] Nov, [facility] [address] [id number] [address] [place] [address], [place] [address] Nov, [facility] [address] [id number] [address] [place] [address], [place] [address] Nov, [facility] [address] [id number] [address] [place] [address], [place] [address] Nov, [facility] [address] [id number] [address] [place] [address], [place] [address] Nov, [facility] [address] [id number] [address] [place] [address], [place] [address] Nov, [facility] [address] [id number] [address] [place] [address], [place] [address] Nov, [facility] [address] [id number] [address] [place] [address], [place] [address] Oct, [facility] [address] [id number] [address] [place] [address], [place] [address] Oct, [facility] [address] [id number] [address] [place] [address], [place] [address] Oct, [facility] [address] [id number] [address] [place] [address], [place] [address] Oct, [facility] [address] [id number] [address] [place] [address], [place] [address] Oct, [facility] [address] [id number] [address] [place] [address], [place] [address] Oct, [facility] [address] [id number] [address] [place] [address], [place] [address] Oct, [facility] [address] [id number] [address] [place] [address], [place] [address] Oct, [facility] [address] [id number] [address] [place] [address], [place] [address] Sep, [facility] [address] [id number] [id number] August, [facility] [address] [id number] [address] [place] [address], [place] [address] August, [facility] [address] [id number] [address] [place] [address], [place] [address] Jul, [facility] [address] [id number] [address] [place] [address], [place] [address] Jul, [facility] [address] [id number] [address] [place] [address], [place] [address] Jul, [facility] [address] [id number] [address] [place] [address], [place] [address] Jul, [facility] [address] [id number] [address] [place] [address], [place] [address] Jul, [facility] [address] [id number] [address] [place] [address], [place] [address] 17 Jul, 2012 [facility] [address] [id number] [address] [place] [address], [place] [address] 16 Jul, 2012 [facility] [address] [id number] [address] [place] [address], [place] [address] 21 Jun, 2012 [facility] [address] [id number] [address] [place] [address], [place] [address] 18 Jun, 2012 [facility] [address] [id number] [address] [place] [address], [place] [address] 11 Jun, 2012 [facility] [address] [id number] [address] [place] [address], [place] [address] 04 Jun, 2012 [facility] [address] [id number] [address] [place] [address], [place] [address] 04 Jun, 2012 [facility] [address] [id number] [address] [place] [address], [place] [address] 19 May, 2012 [facility] [address] [id number] [address] [place] [address], [place] [address] 18 May, 2012 [facility] [address] [id number] [address] [place] [address], [place] [address] 04 May, 2012 [facility] [address] [id number] [address] [place] [address], [place] [address] 15 Apr, 2012 [facility] [address] [id number] [address] [place] [address], [place] [address] 14 Apr, 2012 [facility] [address] [id number] [address] [place] [address], [place] [address] 07 Apr, 2012 [facility] [address] [id number] [address] [place] [address], [place] [address] Mar, [facility] [address] [id number] [address] [place] [address], [place] [address] 31 Mar, 2012 [facility] [address] [id number] [address] [place] [address], [place] [address] Mar, [facility] [address] [id number] [address] [place] [address], [place] [address] Mar, [facility] [address] [id number] [address] [place] [address], [place] [address] Mar, [facility] [address] [id number] [address] [place] [address], [place] [address] Mar, [facility] [address] [id number] [address] [place] [address], [place] [address] Feb, [facility] [address] [id number] [address] [place] [address], [place] [address] Feb, [facility] [address] [id number] [address] [place] [address], [place] [address] Jan, [facility] [address] [id number] [address] [place] [address], [place] [address] Jan, [facility] [address] [id number] [address] [place] [address], [place] [address] Dec, [facility] [address] [id number] [address] [place] [address], [place] [address] Nov, [facility] [address] [id number] [address] [place] [address], [place] [address] Nov, [facility] [address] [id number] [address] [place] [address], [place] [address] Nov, [facility] [address] [id number] [address] [place] [address], [place] [address] Nov, [facility] [address] [id number] [address] [place] [address], [place] [address] Oct, [facility] [address] [id number] [address] [place] [address], [place] [address] Oct, [facility] [address] [id number] [address] [place] [address], [place] [address] Oct, [facility] [address] [id number] [address] [place] [address], [place] [address] 15 Sep, 2011 [facility] [address] [id number] [address] [place] [address], [place] [address] 14 Sep, 2011 [facility] [address] [id number] [address] [place] [address], [place] [address] 05 Sep, 2011 [facility] [address] [id number] [address] [place] [address], [place] [address] August, [facility] [address] [id number] [address] [place] [address], [place] [address] August, [facility] [address] [id number] [address] [place] [address], [place] [address] Jul, [facility] [address] [id number] [address] [place] [address], [place] [address] 24 Jul, 2011 [facility] [address] [id number] [address] [place] [address], [place] [address] Jul, [facility] [address] [id number] [address] [place] [address], [place] [address] Jul, [facility] [address] [id number] [address] [place] [address], [place] [address] Jun, [facility] [address] [id number] [address] [place] [address], [place] [address] May, [facility] [address] [id number] [address] [place] [address], [place] [address] Apr, [facility] [address] [id number] [address] [place] [address], [place] [address] Apr, [facility] [address] [id number] [address] [place] [address], [place] [address] Apr, [facility] [address] [id number] [address] [place] [address], [place] [address] Apr, [facility] [address] [id number] [address] [place] [address], [place] [address] Apr, [facility] [address] [id number] [address] [place] [address], [place] [address] Apr, [facility] [address] [id number] [address] [place] [address], [place] [address] Mar, [facility] [address] [id number] [address] [place] [address], [place] [address] Mar, [facility] [address] [id number] [address] [place] [address], [place] [address] Feb, [facility] [address] [id number] [address] [place] [address], [place] [address] Feb, [facility] [address] [id number] [address] [place] [address], [place] [address] Feb, [facility] [address] [id number] [address] [place] [address], [place] [address] Feb, [facility] [address] [id number] [address] [place] [address], [place] [address] Jan, [facility] [address] [address] [id number] [address] [place] [address], [place] [id number] Jan, [facility] [address] [id number] [address] [place] [address], [place] [phone] Jan, [facility] [address] [id number] [address] [place] [address], [place] [id number] Jan, [facility] [address] [id number] [address] [place] [address], [place] [id number] Nov, [facility] [address] [id number] [address] [place] [address], [place] [id number] Mar, [facility] [address] [id number] [address] [place] [address], [place] [id number] Mar, [facility] [address] [id number] [address] [place] [address], [place] [id number] 30 Feb, 2010 [facility] [address] [id number] [address] [place] [address], [place] [id number] 15 Feb, 2010 [facility] [address] [id number] [address] [place] [phone] Jan, [facility] [address] [id number] [address] [place] [phone] Jan, [facility] [address] [id number] [address] [place] [phone] Sep, [facility] [address] [id number] [address] [place] [phone] May, [facility] [address] [id number] [address] [place] [id number] Apr, [facility] [address] [id number] [address] [place] [phone] Mar, [facility] [address] [id number] [address] [place] [phone] Feb, [facility] [address] [id number] [address] [place] [phone] Feb, [facility] [address] [id number] [address] [place] [phone] Feb, [facility] [address] [id number] [address] [place] [phone] Jan, [facility] [address] [id number] [address] [place] [phone] Jan, [facility] [address] [id number] [address] [place] [phone] Jan, [facility] [address] [id number] [address] [place] [phone] Jan, [facility] [address] [id number] [address] [place] [phone] August, IMMUNIZATIONS No Known Immunizations SOCIAL HISTORY [...] ied 09/2019 Hospitalization History surgery Hospitalization History [facility] treatment few times for BH
--- OUTSIDE RECORDS SUMMARY | 2019-11-26 06:16 | XMS REPORT ---
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 Active 15542321 Problem Hypertensive retinopathy of both eyes H35.033 Active 2355310 Problem Open-angle glaucoma of both eyes, unspecified glaucoma stage, unspecified open-angle glaucoma type H40.10X0 Acti ve 40779261 Problem Obstructive sleep apnea G47.33 Active 66920148 Problem Type 2 diabetes mellitus with complication E11.8 Active 45633731 Problem Intermittent explosive disorder in adult F63.81 Active 12533621 Problem Bipolar disorder, unspecified F31.9 Active 19895911 Problem Mild intellectual disability F70 A ctive 85300714 Problem Other specified urinary incontinence N39.498 Active 641568952 Problem Diabetes E11.9 Active 93237009 Problem Type 2 diabetes mellitus wit h diabetic neuropathy, unspecified whether longterm insulin use E11.40 Active 509730 074800899 Problem Essential hypertension I10 Active 12364596 Problem Reactive airway disease, mild intermittent, uncomplicated J45.20 Active 688276300 Problem Gastroesophageal reflux disease without esophagitis K21.9 Active 835842371 Problem Other diabetic neurological complication associated with type 2 diabetes mellitus E11.49 Active 850133622 Problem Neuropathy G62.9 Active [id number] ALLERGIES No Information ENCOUNTERS Encounter Location Date Diagnosis [facility] [address] [facility] [id number] [address] [place] [address] Jan, [facility] [address] [facility] [id number] [address] [place] [address] Dec, [facility] [address] [place] [address] Oct, [facility] [address] [address] Oct, Callus of foot L84 ; Hyperhi drosis R61 ; Onychomycosis B35.1 and Tinea pedis of both feet B35.3 [place] [address] [place] [address] Sep, [facility] [address] [place] [address] Sep, [place] [address] [address] Sep, [place] [address] [address] Sep, Essential hypertension I10 [place] [address] [address] August, Intermittent explosive disor salvatore in adult F63.81 ; Bipolar disorder, unspecified F31.9 and Mild intellectual disability F70 [place] [address] [place] [id number] [address] [place] [address] Jul, Type 2 diabetes mellitus wit h diabetic neuropathy, 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 and Colon cancer screening Z12.11 [place] [address] [place] [id number] [place] [address] Jul, Type 2 diabetes mellitus wit h diabetic neuropathy, unspecified whether longterm insulin use E11.40 and Tinea pedis, unspecified laterality B35.3 [place] [address] [place] [address] Jun, [facility] [address] [place] [address] Jun, [facility] [address] [place] [id number] [address] [place] [address] 04 Jun, 2019 Dysuria R30.0 [facility] [address] [place] [id number] [address] [place] [address] 02 Jun, 2019 [facility] [address] [place] [id number] [address] [place] [address] 20 May, 2019 Influenza J11.1 [facility] [address] [place] [id number] [address] [place] [address] 13 May, 2019 Intermittent explosive disor salvatore in adult F63.81 [facility] [address] [place] [id number] [address] [place] [address] 12 May, 2019 [place] [address] [place] [id number] [address] [place] [address] Apr, Intermittent explosive disor salvatore in adult F63.81 ; Bipolar disorder, unspecified F31.9 and Mild intellectual disability F70 [facility] [address] [place] [id number] [place] [address] Apr, Oral health maintenance stat us requiring routine preventive dental care K08.9 [place] [address] [place] [id number] [address] [place] [address] Apr, Type 2 diabetes mellitus wit h complication E11.8 ; History of test for hearing Z92.89 ; Colon cancer screening Z12.11 ; Other specified urinary incontinence N39.498 and Impacted cerumen, right ear H61.21 [place] [address] [place] [id number] [address] [place] [address] 10 Apr, 2019 Onychomycosis B35.1 ; Other diabetic neurological complication associated with type 2 diabetes mellitus E11.49 and Tinea pedis of both feet B35.3 [facility] [address] [place] [id number] [address] [place] [address] 14 Feb, 2019 [facility] [address] [place] [id number] [address] [place] [address] Jan, [facility] [address] [place] [id number] [address] [place] [address] Jan, [facility] [address] [id number] [address] [place] [address] Jan, [facility] [address] [id number] [address] [place] [address] Jan, [facility] [address] [id number] [address] [place] [address] Jan, [facility] [address] [id number] [address] [place] [address] Jan, [facility] [address] [id number] [address] [place] [address] Jan, [facility] [address] [facility] [id number] [address] [place] [address] Jan, Anemia D64.9 [facility] [address] [facility] [id number] [place] [address] Jan, Dental examination Z01.20 an d Oral health maintenance status requiring routine preventive dental care K08.9 [facility] [address] [facility] [id number] [address] [place] [address] Jan, Onychomycosis B35.1 and Othe r diabetic neurological complication associated with type 2 diabetes mellitus E11.49 [facility] [address] [facility] [id number] [address] [place] [address] Jan, Anemia D64.9 [facility] [address] [facility] [id number] [address] [place] [address] Jan, [facility] [address] [facility] [id number] [address] [place] [address] Dec, Urinary tract infection with out hematuria, site unspecified N39.0 [facility] [address] [facility] [id number] [address] [place] [address] Dec, Type 2 diabetes mellitus wit h complication E11.8 ; Urinary tract infection without hematuria, site unspecified N39.0 ; Impacted cerumen of both ears H61.23 ; Encounter for immunization Z23 and Hyponatremia E87.1 [facility] [address] [facility] [id number] [address] [place] [address] Dec, Intermittent explosive disor salvatore in adult F63.81 ; Dysuria R30.0 ; Type 2 diabetes mellitus with complication E11.8 ; Bipolar disorder, unspecified F31.9 and Mild intellectual disability F70 [facility] [address] [facility] [id number] [address] [place] [address] Dec, Dysuria R30.0 [facility] [address] [facility] [id number] [address] [place] [address] Dec, Intermittent explosive disor salvatore in adult F63.81 ; Bipolar disorder, unspecified F31.9 and Mild intellectual disability F70 [facility] [address] [facility] [id number] [address] [place] [address] Nov, [facility] [address] [facility] [id number] [address] [place] [address] Oct, [facility] [address] [place] [id number] [place] [address] Oct, Oral health maintenance stat us requiring routine preventive dental care K08.9 [facility] [address] [facility] [id number] [address] [place] [address] August, Intermittent explosive disor salvatore in adult F63.81 ; Bipolar disorder, unspecified F31.9 and Mild intellectual disability F70 [facility] [address] [id number] [address] [place] [address] [id number] August, Dental caries K02.9 [facility] [address] [facility] [id number] [address] [place] [address] Jul, Onychomycosis B35.1 ; Other diabetic neurological complication associated with type 2 diabetes mellitus E11.49 and Tinea pedis of both feet B35.3 [facility] [address] [id number] [address] [place] [id number] Jul, Caries K02.9 [facility] [address] [facility] [id number] [address] [place] [address] 15 Jul, 2018 Type 2 diabetes mellitus wit h complication E11.8 ; Tobacco abuse Z72.0 and Bipolar disorder, unspecified F31.9 [facility] [address] [facility] [id number] [address] [place] [address] Jun, [facility] [address] [facility] [id number] [address] [place] [address] [id number] Jun, Dental examination Z01.20 an d Oral health maintenance status requiring routine preventive dental care K08.9 [facility] [address] [place] [id number] [address] [place] [address] May, Bilateral impacted cerumen H 61.23 [facility] [address] [place] [id number] [address] [place] [address] Apr, Bipolar disorder, unspecifie d F31.9 ; Intermittent explosive disorder in adult F63.81 ; Type 2 diabetes mellitus with complication E11.8 ; Tobacco abuse Z72.0 and Colon cancer screening Z12.11 [facility] [address] [place] [id number] [address] [place] [address] Apr, Onychomycosis B35.1 and Othe r diabetic neurological complication associated with type 2 diabetes mellitus E11.49 [facility] [address] [place] [id number] [address] [place] [address] Apr, Intermittent explosive disor salvatore in adult F63.81 ; Bipolar disorder, unspecified F31.9 and Mild intellectual disability F70 [facility] [address] [place] [id number] [address] [place] [address] Mar, Diabetes E11.9 [facility] [address] [place] [id number] [address] [place] [address] Jan, Encounter for immunization Z 23 [facility] [address] [place] [id number] [address] [place] [address] Jan, Tinea pedis of both feet B35 .3 ; Other diabetic neurological complication associated with type 2 diabetes mellitus E11.49 and Onychomycosis B35.1 [facility] [address] [facility] [id number] [address] [place] [address] Nov, Type 2 diabetes mellitus wit h complication E11.8 [facility] [address] [facility] [id number] [address] [place] [address] Nov, [facility] [address] [facility] [id number] [address] [place] [address] Oct, Intermittent explosive disor salvatore in adult F63.81 ; Bipolar disorder, unspecified F31.9 and Mild intellectual disability F70 [facility] [address] [facility] [id number] [address] [place] [address] Oct, [facility] [address] [facility] [id number] [address] [place] [address] [id number] Oct, Dental examination Z01.20 [facility] [address] [facility] [id number] [address] [place] [address] Oct, Onychomycosis B35.1 and Othe r diabetic neurological complication associated with type 2 diabetes mellitus E11.49 [facility] [address] [facility] [id number] [address] [place] [address] Sep, Type 2 diabetes mellitus wit h complication E11.8 and Colon cancer screening Z12.11 [facility] [address] [facility] [id number] [address] [place] [address] Sep, Type 2 diabetes mellitus wit h complication E11.8 ; Colon cancer screening Z12.11 and Neuropathy G62.9 [facility] [address] [id number] [address] [place] [address] August, Diabetes E11.9 [facility] [address] [id number] [address] [place] [address] [id number] Jul, Dental examination Z01.20 [facility] [address] [facility] [id number] [address] [place] [address] May, Mild intellectual disability F70 [facility] [address] [facility] [id number] [address] [place] [address] May, Mild intellectual disability F70 ; High risk medication use Z79.899 ; Intermittent explosive disorder in adult F63.81 and Bipolar disorder, unspecified F31.9 [facility] [address] [facility] [id number] [address] [place] [address] May, [facility] [address] [facility] [id number] [address] [place] [address] May, [place] [id number] [facility] [id number] [address] [place] [address] Apr, Type 2 diabetes mellitus wit h complication E11.8 ; Mild intellectual disability F70 ; Gastroesophageal reflux disease without esophagitis K21.9 ; Reactive airway disease, mild intermittent, uncomplicated J45.20 and Tobacco abuse Z72.0 [place] [address] [place] [id number] [address] [place] [address] Apr, High risk medication use Z79 .899 ; Mild intellectual disability F70 ; Intermittent explosive disorder in adult F63.81 and Bipolar disorder, unspecified F31.9 [facility] [address] [place] [id number] [place] [address] [id number] Mar, Dental examination Z01.20 [facility] [id number] [place] [address] [id number] Mar, Encounter for dental exam an d cleaning w/o abnormal findings Z01.20 [facility] [address] [facility] [id number] [address] [place] [address] 12 Jan, 2017 [facility] [address] [facility] [id number] [address] [place] [address] Jan, [facility] [address] [facility] [id number] [address] [place] [address] Jan, Mild intellectual disability F70 ; Bipolar disorder, unspecified F31.9 and Intermittent explosive disorder in adult F63.81 [facility] [address] [id number] [address] [place] [address] 02 Jan, 2017 Diabetes E11.9 [facility] [address] [id number] [address] [place] [address] [id number] 13 Dec, 2016 Encounter for dental examina tion and cleaning without abnormal findings Z01.20 [facility] [address] [id number] [address] [place] [address] 12 Dec, 2016 Bipolar disorder, unspecifie d F31.9 ; Intermittent explosive disorder in adult F63.81 and Mild intellectual disability F70 [facility] [address] [id number] [address] [place] [address] Nov, Diabetes E11.9 [facility] [address] [id number] [address] [place] [address] Nov, [facility] [address] [id number] [address] [place] [address] Nov, Diabetes E11.9 and Colon can cer screening Z12.11 [facility] [id number] [place] [address] [id number] Sep, Dental examination Z01.20 [facility] [address] [id number] [address] [place] [address] [id number] 21 Sep, 2016 Encounter for dental examina tion and cleaning without abnormal findings Z01.20 [facility] [address] [id number] [address] [place] [address] 13 Sep, 2016 Bipolar disorder, unspecifie d F31.9 [facility] [address] [id number] [address] [place] [address] Sep, Bipolar disorder, unspecifie d F31.9 [facility] [address] [id number] [address] [place] [address] Jul, [facility] [address] [id number] [address] [place] [address] Jul, Type 2 diabetes mellitus wit h complication E11.8 [facility] [id number] [place] [id number] 15 Jun, 2016 Dental examination Z01.20 [facility] [address] [id number] [address] [place] [address] [id number] 15 Jun, 2016 Encounter for dental examina tion and cleaning without abnormal findings Z01.20 [facility] [address] [id number] [address] [place] [address] 18 Apr, 2016 Sports physical Z02.5 [facility] [address] [id number] [address] [place] [address] 14 Mar, 2016 Bipolar disorder, in partial remission, most recent episode manic F31.73 and Intermittent explosive disorder in adult F63.81 [facility] [address] [facility] [id number] [address] [place] [address] 08 Mar, 2016 [facility] [address] [facility] [id number] [address] [place] [address] 06 Mar, 2016 Diabetes E11.9 [facility] [address] [facility] [id number] [address] [place] [address] [id number] Feb, Encounter for dental examina tion and cleaning without abnormal findings Z01.20 [facility] [address] [facility] [id number] [address] [place] [address] 22 Dec, 2015 Nocturnal hypoxemia G47.34 a nd Encounter for immunization Z23 [facility] [address] [facility] [id number] [address] [place] [address] 15 Dec, 2015 [facility] [address] [id number] [address] [place] [address] Dec, [facility] [address] [id number] [address] [place] [address] Dec, Bipolar disorder, unspecifie d F31.9 [facility] [address] [id number] [address] [place] [address] [id number] Oct, Encounter for dental examina tion and cleaning without abnormal findings Z01.20 [facility] [address] [id number] [place] [id number] Oct, Dental examination Z01.20 [facility] [address] [facility] [id number] [address] [place] [address] Oct, Diabetes E11.9 [place] [address] [facility] [id number] [address] [place] [address] Oct, Diabetes E11.9 ; Reactive ai rway disease, mild intermittent, uncomplicated J45.20 and Tobacco abuse Z72.0 [place] [address] [place] [id number] [address] [place] [address] Sep, Bipolar disorder, unspecifie d F31.9 and Depression F32.9 [place] [address] [place] [id number] [address] [place] [address] Sep, [place] [address] [address] August, Tinea pedis of both feet B35 .3 and DM w/o complication type II, uncontrolled E11.65 [place] [address] [place] [id number] [address] [place] [address] Jul, [place] [address] [place] [id number] [address] [place] [address] Jul, [place] [address] [place] [id number] [address] [place] [address] Jul, Obstructive sleep apnea G47. 33 [place] [address] [facility] [id number] [address] [place] [address] Jun, Diabetes E11.9 [facility] [address] [facility] [id number] [address] [place] [address] Jun, [place] [address] [facility] [id number] [address] [place] [address] Jun, [facility] [address] [facility] [id number] [address] [place] [address] Jun, Bipolar disorder, unspecifie d F31.9 and Mental retardation F79 [place] [address] [place] [id number] [address] [place] [address] Apr, [place] [address] [address] Feb, Diabetes E11.9 ; Encounter f or immunization Z23 ; Cough R05 and Nicotine abuse Z72.0 [place] [address] [address] Jan, Bipolar disorder, unspecifie d F31.9 and Diabetes mellitus without mention of complication, type II or unspecified type, uncontrolled 250.02 [place] [address] [address] Jan, [place] [address] [address] Dec, Reactive airway disease 493. 90 and Enuresis 788.30 [place] [address] [address] Dec, [place] [address] [address] Nov, [place] [address] [address] Nov, [place] [address] [address] Nov, Annual physical exam V70.0 ; Urinary incontinence 788.30 ; Diabetes 250.00 and Hypertension 401.9 [place] [address] [place] [id number] [address] [place] [address] Oct, Diabetes mellitus without me ntion of complication, type II or unspecified type, uncontrolled 250.02 [place] [address] [place] [id number] [address] [place] [address] Oct, Diabetes mellitus without me ntion of complication, type II or unspecified type, uncontrolled 250.02 [place] [address] [place] [address] [place] [address] Oct, Diabetes mellitus without me ntion of complication, type II or unspecified type, uncontrolled 250.02 [facility] [address] [id number] [address] [place] [address] Oct, [facility] [address] [id number] [address] [place] [address] Oct, [facility] [address] [id number] [address] [place] [address] Oct, Bipolar disorder, unspecifie d 296.80 [facility] [address] [id number] [place] [address] [id number] Sep, Dental examination V72.2 [facility] [address] [id number] [address] [place] [address] August, [facility] [address] [id number] [place] [address] [id number] August, Dental examination V72.2 [facility] [address] [id number] [address] [place] [address] August, [facility] [address] [id number] [address] [place] [phone] Jul, [facility] [address] [id number] [address] [place] [id number] Jul, [facility] [address] [id number] [address] [place] [address] Jun, [facility] [address] [id number] [address] [place] [address] Jun, [facility] [address] [id number] [address] [place] [phone] Jun, [facility] [address] [id number] [address] [place] [address] Jun, [facility] [address] [id number] [address] [place] [address] May, 2014 [facility] [place] [facility] [address] [id number] [address] [place] [address], [place] [address] 23 May, 2014 [facility] [place] [facility] [address] [id number] [address] [place] [address], [place] [id number] 16 May, 2014 [facility] [address] [id number] [address] [place] [address], [place] [id number] 16 May, 2014 [facility] [address] [id number] [address] [place] [address], [place] [id number] 16 May, 2014 [facility] [address] [id number] [address] [place] [address], [place] [id number] 16 May, 2014 [facility] [address] [id number] [address] [place] [address], [place] [id number] 16 May, 2014 [facility] [address] [id number] [address] [place] [address], [place] [address] 16 May, 2014 [facility] [address] [id number] [address] [place] [address], [place] [address] 16 May, 2014 [facility] [address] [id number] [address] [place] [address], [place] [address] 16 May, 2014 [facility] [address] [id number] [address] [place] [address], [place] [address] 16 May, 2014 [facility] [address] [id number] [address] [place] [address], [place] [address] 16 May, 2014 [facility] [address] [id number] [address] [place] [address], [place] [address] 16 May, 2014 [facility] [address] [id number] [address] [place] [address], [place] [address] 16 May, 2014 [facility] [address] [id number] [address] [place] [address], [place] [address] 16 May, 2014 [facility] [address] [id number] [address] [place] [address], [place] [address] Apr, [facility] [address] [id number] [address] [place] [address], [place] [address] Apr, [facility] [address] [id number] [address] [place] [address], [place] [address] Apr, [facility] [address] [id number] [address] [place] [address], [place] [address] Apr, [facility] [address] [id number] [address] [place] [address], [place] [address] Apr, [facility] [address] [id number] [address] [place] [address], [place] [address] Apr, [facility] [address] [id number] [address] [place] [address], [place] [address] Apr, [facility] [address] [id number] [address] [place] [address], [place] [address] Apr, [facility] [address] [id number] [address] [place] [address], [place] [address] Apr, [facility] [address] [id number] [address] [place] [address], [place] [address] Apr, [facility] [address] [id number] [address] [place] [address], [place] [address] Apr, [facility] [address] [id number] [address] [place] [address], [place] [address] Apr, [facility] [address] [id number] [address] [place] [address], [place] [address] Mar, [facility] [address] [id number] [address] [place] [address], [place] [address] Mar, [facility] [address] [id number] [address] [place] [address], [place] [address] Mar, [facility] [address] [id number] [address] [place] [address], [place] [address] Mar, [facility] [address] [id number] [address] [place] [address], [place] [address] 10 Mar, 2014 [facility] [address] [id number] [address] [place] [address], [place] [address] Mar, [facility] [address] [id number] [address] [place] [address], [place] [address] Feb, [facility] [address] [id number] [address] [place] [address], [place] [address] Feb, [facility] [address] [id number] [address] [place] [address], [place] [address] Feb, [facility] [address] [id number] [address] [place] [address], [place] [address] Feb, [facility] [address] [id number] [address] [place] [address], [place] [address] 14 Jan, 2014 [facility] [address] [id number] [address] [place] [address], [place] [address] 14 Jan, 2014 [facility] [address] [id number] [address] [place] [address], [place] [address] 14 Jan, 2014 [facility] [address] [id number] [address] [place] [address], [place] [address] 14 Jan, 2014 [facility] [address] [id number] [address] [place] [address], [place] [address] 22 Dec, 2013 [facility] [address] [id number] [address] [place] [address], [place] [address] 22 Dec, 2013 [facility] [address] [id number] [address] [place] [address], [place] [address] 15 Dec, 2013 [facility] [address] [id number] [address] [place] [address], [place] [address] 15 Dec, 2013 [facility] [address] [id number] [address] [place] [address], [place] [address] Nov, [facility] [address] [id number] [address] [place] [address], [place] [address] Nov, [facility] [address] [id number] [facility] [place] [address] Nov, [facility] [address] [id number] [facility] [place] [address] Nov, [facility] [address] [id number] [facility] [place] [address] Nov, [facility] [address] [id number] [facility] [place] [address] Nov, [facility] [address] [id number] [address] [place] [address], [place] [address] Nov, [facility] [address] [id number] [address] [place] [address], [place] [address] Oct, [facility] [address] [id number] [address] [place] [address], [place] [address] Oct, [facility] [address] [id number] [address] [place] [address], [place] [address] Oct, [facility] [address] [id number] [address] [place] [address], [place] [address] Oct, [facility] [address] [id number] [address] [place] [address], [place] [address] Oct, [facility] [address] [id number] [address] [place] [address], [place] [address] Oct, [facility] [address] [id number] [address] [place] [address], [place] [address] Oct, [facility] [address] [id number] [address] [place] [address], [place] [address] Sep, [facility] [address] [id number] [address] [place] [address], [place] [address] Sep, [facility] [address] [id number] [address] [place] [address], [place] [address] Sep, [facility] [address] [id number] [address] [place] [address], [place] [address] Sep, [facility] [address] [id number] [facility] [place] [address] Sep, [facility] [address] [id number] [address] [place] [address], [place] [address] Jul, [facility] [address] [id number] [address] [place] [address], [place] [address] Jul, [facility] [address] [id number] [address] [place] [address], [place] [address] Jul, [facility] [address] [id number] [address] [place] [address], [place] [address] Jul, [facility] [address] [id number] [address] [place] [address], [place] [address] Jul, [facility] [address] [id number] [address] [place] [address], [place] [address] Jul, [facility] [address] [id number] [address] [place] [address], [place] [address] Jul, [facility] [address] [id number] [address] [place] [address], [place] [address] Jul, [facility] [address] [id number] [address] [place] [address], [place] [address] Jul, [facility] [address] [id number] [address] [place] [address], [place] [address] Jul, [facility] [address] [id number] [address] [place] [address], [place] [address] Jul, [facility] [address] [id number] [address] [place] [address], [place] [address] Jul, [facility] [address] [id number] [address] [place] [address], [place] [address] Jun, [facility] [address] [id number] [address] [place] [address], [place] [address] Jun, [facility] [address] [id number] [address] [place] [address], [place] [address] Jun, [facility] [address] [id number] [address] [place] [address], [place] [address] Jun, [facility] [address] [id number] [address] [place] [address], [place] [address] Jun, [facility] [address] [id number] [address] [place] [address], [place] [address] Jun, [facility] [address] [id number] [address] [place] [address], [place] [address] Jun, [facility] [address] [id number] [address] [place] [address], [place] [address] Jun, [facility] [address] [id number] [address] [place] [address], [place] [address] May, [facility] [address] [id number] [address] [place] [address], [place] [address] May, [facility] [address] [id number] [address] [place] [address], [place] [address] May, [facility] [address] [id number] [address] [place] [address], [place] [address] May, [facility] [address] [id number] [address] [place] [address], [place] [address] May, [facility] [address] [id number] [address] [place] [address], [place] [address] May, [facility] [address] [id number] [address] [place] [address], [place] [address] May, [facility] [address] [id number] [address] [place] [address], [place] [address] May, [facility] [address] [id number] [address] [place] [address], [place] [address] Apr, [facility] [address] [id number] [address] [place] [address] [address] Apr, [facility] [address] [id number] [address] [place] [address], [place] [address] Apr, [facility] [address] [id number] [address] [place] [address], [place] [address] Apr, [facility] [address] [id number] [address] [place] [address], [place] [address] Mar, [facility] [address] [id number] [address] [place] [address], [place] [address] Mar, [facility] [address] [id number] [address] [place] [address], [place] [address] Mar, [facility] [address] [id number] [address] [place] [address], [place] [address] Feb, [facility] [address] [id number] [address] [place] [address], [place] [address] Feb, [facility] [address] [id number] [address] [place] [address], [place] [address] Feb, [facility] [address] [id number] [address] [place] [address], [place] [address] Feb, [facility] [address] [id number] [address] [place] [address], [place] [address] Feb, [facility] [address] [id number] [address] [place] [address], [place] [address] Feb, [facility] [address] [id number] [address] [place] [address], [place] [address] Jan, [facility] [address] [id number] [address] [place] [address], [place] [address] Jan, [facility] [address] [id number] [address] [place] [address], [place] [address] Jan, [facility] [address] [id number] [address] [place] [address], [place] [address] Jan, [facility] [address] [id number] [address] [place] [address], [place] [address] Jan, [facility] [address] [id number] [address] [place] [address], [place] [address] Jan, [facility] [address] [id number] [address] [place] [address], [place] [address] Jan, [facility] [address] [id number] [address] [place] [address], [place] [address] Dec, [facility] [address] [id number] [address] [place] [address], [place] [address] 16 Dec, 2012 [facility] [address] [id number] [address] [place] [address], [place] [address] Dec, [facility] [address] [id number] [address] [place] [address], [place] [address] Dec, [facility] [address] [id number] [address] [place] [address], [place] [address] Nov, [facility] [address] [id number] [address] [place] [address], [place] [address] Nov, [facility] [address] [id number] [address] [place] [address], [place] [address] Nov, [facility] [address] [id number] [address] [place] [address], [place] [address] Nov, [facility] [address] [id number] [address] [place] [address], [place] [address] Nov, [facility] [address] [id number] [address] [place] [address], [place] [address] Nov, [facility] [address] [id number] [address] [place] [address], [place] [address] Nov, [facility] [address] [id number] [address] [place] [address], [place] [address] Oct, [facility] [address] [id number] [address] [place] [address], [place] [address] Oct, [facility] [address] [id number] [address] [place] [address], [place] [address] Oct, [facility] [address] [id number] [address] [place] [address], [place] [address] Oct, [facility] [address] [id number] [address] [place] [address], [place] [address] Oct, [facility] [address] [id number] [address] [place] [address], [place] [address] Oct, [facility] [address] [id number] [address] [place] [address], [place] [address] Oct, [facility] [address] [id number] [address] [place] [address], [place] [address] Oct, [facility] [address] [id number] [address] [place] [address], [place] [address] Sep, [facility] [place] [address] [address] [facility] [id number] [place] [id number] August, [facility] [address] [id number] [address] [place] [address], [place] [address] August, [facility] [address] [id number] [address] [place] [address], [place] [address] Jul, [facility] [address] [id number] [address] [place] [address], [place] [address] Jul, [facility] [address] [id number] [address] [place] [address], [place] [address] Jul, [facility] [address] [id number] [address] [place] [address], [place] [address] Jul, [facility] [address] [id number] [address] [place] [address], [place] [address] Jul, [facility] [address] [id number] [address] [place] [address], [place] [address] Jul, [facility] [address] [id number] [address] [place] [address], [place] [address] 16 Jul, 2012 [facility] [address] [id number] [address] [place] [address], [place] [address] Jun, [facility] [address] [id number] [address] [place] [address], [place] [address] 18 Jun, 2012 [facility] [address] [id number] [address] [place] [address], [place] [address] 11 Jun, 2012 [facility] [address] [id number] [address] [place] [address], [place] [address] 04 Jun, 2012 [facility] [address] [id number] [address] [place] [address], [place] [address] 04 Jun, 2012 [facility] [address] [id number] [address] [place] [address], [place] [address] 19 May, 2012 [facility] [address] [id number] [address] [place] [address], [place] [address] 18 May, 2012 [facility] [address] [id number] [address] [place] [address], [place] [address] 04 May, 2012 [facility] [address] [id number] [address] [place] [address], [place] [address] 15 Apr, 2012 [facility] [address] [id number] [address] [place] [address], [place] [address] 14 Apr, 2012 [facility] [address] [id number] [address] [place] [address], [place] [address] 07 Apr, 2012 [facility] [address] [id number] [address] [place] [address], [place] [address] Mar, [facility] [address] [id number] [address] [place] [address], [place] [address] Mar, [facility] [address] [id number] [address] [place] [address], [place] [address] Mar, [facility] [address] [id number] [address] [place] [address], [place] [address] Mar, [facility] [address] [id number] [address] [place] [address], [place] [address] Mar, [facility] [address] [id number] [address] [place] [address], [place] [address] Mar, [facility] [address] [id number] [address] [place] [address], [place] [address] Feb, [facility] [address] [id number] [address] [place] [address], [place] [address] Feb, [facility] [address] [id number] [address] [place] [address], [place] [address] Jan, [facility] [address] [id number] [address] [place] [address], [place] [address] Jan, [facility] [address] [id number] [address] [place] [address], [place] [address] Dec, [facility] [address] [id number] [address] [place] [address], [place] [address] Nov, [facility] [address] [id number] [address] [place] [address], [place] [address] Nov, [facility] [address] [id number] [address] [place] [address], [place] [address] Nov, [facility] [address] [id number] [address] [place] [address], [place] [address] Nov, [facility] [address] [id number] [address] [place] [address], [place] [address] Oct, [facility] [address] [id number] [address] [place] [address], [place] [address] Oct, [facility] [address] [id number] [address] [place] [address], [place] [address] Oct, [facility] [address] [id number] [address] [place] [address], [place] [address] Sep, [facility] [address] [id number] [address] [place] [address], [place] [address] 14 Sep, 2011 [facility] [address] [id number] [address] [place] [address], [place] [address] Sep, [facility] [address] [id number] [address] [place] [address], [place] [address] August, [facility] [address] [id number] [address] [place] [address], [place] [address] August, [facility] [address] [id number] [address] [place] [address], [place] [address] Jul, [facility] [address] [id number] [address] [place] [address], [place] [address] Jul, [facility] [address] [id number] [address] [place] [address], [place] [address] Jul, [facility] [address] [id number] [address] [place] [address], [place] [address] Jul, [facility] [address] [id number] [address] [place] [address], [place] [address] Jun, [facility] [address] [id number] [address] [place] [address], [place] [address] May, [facility] [address] [id number] [address] [place] [address], [place] [address] Apr, [facility] [address] [id number] [address] [place] [address], [place] [address] Apr, [facility] [address] [id number] [address] [place] [address], [place] [address] Apr, [facility] [address] [id number] [address] [place] [address], [place] [address] Apr, [facility] [address] [id number] [address] [place] [address], [place] [address] Apr, [facility] [address] [id number] [address] [place] [address], [place] [address] Apr, [facility] [address] [id number] [address] [place] [address], [place] [address] Mar, [facility] [address] [id number] [address] [place] [address], [place] [address] Mar, [facility] [address] [id number] [address] [place] [address], [place] [address] Feb, [facility] [address] [id number] [address] [place] [address], [place] [address] Feb, [facility] [address] [id number] [address] [place] [address], [place] [address] Feb, [facility] [address] [id number] [address] [place] [address], [place] [address] Feb, [facility] [address] [id number] [address] [place] [address], [place] [address] Jan, [facility] [address] [id number] [address] [place] [address], [place] [address] Jan, [facility] [address] [id number] [address] [place] [address], [place] [address] Jan, [facility] [address] [id number] [address] [place] [address], [place] [address] Jan, [facility] [address] [id number] [address] [place] [address], [place] [address] Nov, [facility] [address] [id number] [address] [place] [address], [place] [address] Mar, [facility] [address] [id number] [address] [place] [address], [place] [address] Mar, [facility] [address] [id number] [address] [place] [address], [place] [address] 30 Feb, 2010 [facility] [address] [id number] [address] [place] [address], [place] [address] 15 Feb, 2010 [facility] [address] [id number] [address] [place] [address], [place] [address] Jan, [facility] [address] [id number] [address] [place] [address] Jan, [facility] [address] [id number] [address] [place] [address] Sep, [facility] [address] [id number] [address] [place] [id number] 16 May, 2009 [facility] [address] [id number] [address] [place] [address] Apr, [facility] [address] [id number] [address] [place] [address] Mar, [facility] [address] [id number] [address] [place] [address] Feb, [facility] [address] [id number] [address] [place] [address] Feb, [facility] [address] [id number] [address] [place] [address] Feb, [facility] [address] [id number] [address] [place] [address] Jan, [facility] [address] [id number] [address] [place] [address] Jan, [facility] [address] [id number] [address] [place] [address] Jan, [facility] [address] [id number] [address] [place] [address] Jan, [facility] [address] [id number] [address] [place] [address] August, IMMUNIZATIONS No Known Immunizations SOCIAL HISTORY [...] ied 09/2019 Hospitalization History surgery Hospitalization History [facility], [facility] treatment few times for BH
--- OUTSIDE RECORDS SUMMARY | 2019-11-26 06:16 | XMS REPORT ---
Author Author Cameron ALANIZ 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 Active 33429489 Problem Hypertensive retinopathy of both eyes H35.033 Active 0870754 Problem Open-angle glaucoma of both eyes, unspecified glaucoma stage, unspecified open-angle glaucoma type H40.10X0 Acti ve 40571587 Problem Obstructive sleep apnea G47.33 Active 12347510 Problem Type 2 diabetes mellitus with complication E11.8 Active 05185731 Problem Intermittent explosive disorder in adult F63.81 Active 42710094 Problem Bipolar disorder, unspecified F31.9 Active 75446643 Problem Mild intellectual disability F70 A ctive 69311441 Problem Other specified urinary incontinence N39.498 Active 969783504 Problem Diabetes E11.9 Active 94239066 Problem Type 2 diabetes mellitus wit h diabetic neuropathy, unspecified whether custodial insulin use E11.40 Active 157490 508632700 Problem Essential hypertension I10 Active 52455994 Problem Reactive airway disease, mild intermittent, uncomplicated J45.20 Active 590137425 Problem Gastroesophageal reflux disease without esophagitis K21.9 Active 628622870 Problem Other diabetic neurological complication associated with type 2 diabetes mellitus E11.49 Active 707940128 Problem Neuropathy G62.9 Active [id number] ALLERGIES No Information ENCOUNTERS Encounter Location Date Diagnosis [facility] [address] [facility] [id number] [address] [place] [address] Jan, [facility] [address] [facility] [id number] [address] [place] [address] Dec, [facility] [address] [place] [address] Oct, [facility] [address] [address] Oct, Callus of foot L84 ; Hyperhi drosis R61 ; Onychomycosis B35.1 and Tinea pedis of both feet B35.3 [place] [address] [place] [address] Sep, [facility] [address] [place] [address] Sep, [place] [address] [address] Sep, [place] [address] [address] Sep, Essential hypertension I10 [place] [address] [address] August, Intermittent explosive disor salvatore in adult F63.81 ; Bipolar disorder, unspecified F31.9 and Mild intellectual disability F70 [place] [address] [place] [id number] [address] [place] [address] Jul, Type 2 diabetes mellitus wit h diabetic neuropathy, 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 and Colon cancer screening Z12.11 [place] [address] [place] [id number] [address] [place] [address] Jul, Type 2 diabetes mellitus wit h diabetic neuropathy, unspecified whether custodial insulin use E11.40 and Tinea pedis, unspecified laterality B35.3 [place] [address] [place] [address] Jun, [facility] [address] [place] [address] Jun, [facility] [address] [place] [id number] [address] [place] [address] 04 Jun, 2019 Dysuria R30.0 [facility] [address] [place] [id number] [address] [place] [address] 02 Jun, 2019 [facility] [address] [place] [id number] [address] [place] [address] 20 May, 2019 Influenza J11.1 [facility] [address] [place] [id number] [place] [address] 13 May, 2019 Intermittent explosive disor salvatore in adult F63.81 [facility] [address] [place] [id number] [address] [place] [address] 12 May, 2019 [place] [address] [place] [id number] [address] [place] [address] Apr, Intermittent explosive disor salvatore in adult F63.81 ; Bipolar disorder, unspecified F31.9 and Mild intellectual disability F70 [facility] [address] [place] [id number] [place] [address] Apr, Oral health maintenance stat us requiring routine preventive dental care K08.9 [place] [address] [place] [id number] [place] [address] Apr, Type 2 diabetes mellitus wit h complication E11.8 ; History of test for hearing Z92.89 ; Colon cancer screening Z12.11 ; Other specified urinary incontinence N39.498 and Impacted cerumen, right ear H61.21 [place] [address] [place] [id number] [address] [place] [address] 10 Apr, 2019 Onychomycosis B35.1 ; Other diabetic neurological complication associated with type 2 diabetes mellitus E11.49 and Tinea pedis of both feet B35.3 [facility] [address] [place] [id number] [place] [address] 14 Feb, 2019 [facility] [address] [place] [id number] [address] [place] [address] Jan, [facility] [address] [place] [id number] [address] [place] [address] Jan, [facility] [address] [id number] [address] [place] [address] Jan, [facility] [address] [id number] [address] [place] [address] Jan, [facility] [address] [id number] [address] [place] [address] Jan, [facility] [address] [id number] [address] [place] [address] Jan, [facility] [address] [id number] [address] [place] [address] Jan, [facility] [address] [facility] [id number] [address] [place] [address] Jan, Anemia D64.9 [facility] [address] [facility] [id number] [place] [address] Jan, Dental examination Z01.20 an d Oral health maintenance status requiring routine preventive dental care K08.9 [facility] [address] [facility] [id number] [address] [place] [address] Jan, Onychomycosis B35.1 and Othe r diabetic neurological complication associated with type 2 diabetes mellitus E11.49 [facility] [address] [facility] [id number] [address] [place] [address] Jan, Anemia D64.9 [facility] [address] [facility] [id number] [address] [place] [address] Jan, [facility] [address] [facility] [id number] [address] [place] [address] Dec, Urinary tract infection with out hematuria, site unspecified N39.0 [facility] [address] [facility] [id number] [address] [place] [address] Dec, Type 2 diabetes mellitus wit h complication E11.8 ; Urinary tract infection without hematuria, site unspecified N39.0 ; Impacted cerumen of both ears H61.23 ; Encounter for immunization Z23 and Hyponatremia E87.1 [facility] [address] [facility] [id number] [address] [place] [address] Dec, Intermittent explosive disor salvatore in adult F63.81 ; Dysuria R30.0 ; Type 2 diabetes mellitus with complication E11.8 ; Bipolar disorder, unspecified F31.9 and Mild intellectual disability F70 [facility] [address] [facility] [id number] [address] [place] [address] Dec, Dysuria R30.0 [facility] [address] [facility] [id number] [address] [place] [address] Dec, Intermittent explosive disor salvatore in adult F63.81 ; Bipolar disorder, unspecified F31.9 and Mild intellectual disability F70 [facility] [address] [facility] [id number] [address] [place] [address] Nov, [facility] [address] [facility] [id number] [address] [place] [address] Oct, [facility] [address] [place] [id number] [place] [address] Oct, Oral health maintenance stat us requiring routine preventive dental care K08.9 [facility] [address] [facility] [id number] [address] [place] [address] August, Intermittent explosive disor salvatore in adult F63.81 ; Bipolar disorder, unspecified F31.9 and Mild intellectual disability F70 [facility] [address] [id number] [address] [place] [id number] August, Dental caries K02.9 [facility] [address] [facility] [id number] [address] [place] [address] Jul, Onychomycosis B35.1 ; Other diabetic neurological complication associated with type 2 diabetes mellitus E11.49 and Tinea pedis of both feet B35.3 [facility] [address] [id number] [address] [place] [address] [id number] Jul, Caries K02.9 [facility] [address] [facility] [id number] [address] [place] [address] 15 Jul, 2018 Type 2 diabetes mellitus wit h complication E11.8 ; Tobacco abuse Z72.0 and Bipolar disorder, unspecified F31.9 [facility] [address] [facility] [id number] [address] [place] [address] Jun, [facility] [address] [facility] [id number] [address] [place] [address] [phone] Jun, Dental examination Z01.20 an d Oral health maintenance status requiring routine preventive dental care K08.9 [facility] [address] [place] [id number] [address] [place] [address] May, Bilateral impacted cerumen H 61.23 [facility] [address] [place] [id number] [address] [place] [address] Apr, Bipolar disorder, unspecifie d F31.9 ; Intermittent explosive disorder in adult F63.81 ; Type 2 diabetes mellitus with complication E11.8 ; Tobacco abuse Z72.0 and Colon cancer screening Z12.11 [facility] [address] [place] [id number] [address] [place] [address] Apr, Onychomycosis B35.1 and Othe r diabetic neurological complication associated with type 2 diabetes mellitus E11.49 [facility] [address] [place] [id number] [address] [place] [address] Apr, Intermittent explosive disor salvatore in adult F63.81 ; Bipolar disorder, unspecified F31.9 and Mild intellectual disability F70 [facility] [address] [place] [id number] [address] [place] [address] Mar, Diabetes E11.9 [facility] [address] [place] [id number] [address] [place] [address] Jan, Encounter for immunization Z 23 [facility] [address] [place] [id number] [address] [place] [address] Jan, Tinea pedis of both feet B35 .3 ; Other diabetic neurological complication associated with type 2 diabetes mellitus E11.49 and Onychomycosis B35.1 [facility] [address] [facility] [id number] [address] [place] [address] Nov, Type 2 diabetes mellitus wit h complication E11.8 [facility] [address] [facility] [id number] [address] [place] [address] Nov, [facility] [address] [facility] [id number] [address] [place] [address] Oct, Intermittent explosive disor salvatore in adult F63.81 ; Bipolar disorder, unspecified F31.9 and Mild intellectual disability F70 [facility] [address] [facility] [id number] [address] [place] [address] Oct, [facility] [address] [facility] [id number] [address] [place] [address] [id number] Oct, Dental examination Z01.20 [facility] [address] [facility] [id number] [address] [place] [address] Oct, Onychomycosis B35.1 and Othe r diabetic neurological complication associated with type 2 diabetes mellitus E11.49 [facility] [address] [facility] [id number] [address] [place] [address] Sep, Type 2 diabetes mellitus wit h complication E11.8 and Colon cancer screening Z12.11 [facility] [address] [facility] [id number] [address] [place] [address] Sep, Type 2 diabetes mellitus wit h complication E11.8 ; Colon cancer screening Z12.11 and Neuropathy G62.9 [facility] [address] [id number] [address] [place] [address] August, Diabetes E11.9 [facility] [address] [id number] [address] [place] [address] [id number] Jul, Dental examination Z01.20 [facility] [address] [facility] [id number] [address] [place] [address] May, Mild intellectual disability F70 [facility] [address] [facility] [id number] [address] [place] [address] May, Mild intellectual disability F70 ; High risk medication use Z79.899 ; Intermittent explosive disorder in adult F63.81 and Bipolar disorder, unspecified F31.9 [facility] [address] [place] [id number] [address] [place] [address] May, [facility] [address] [facility] [id number] [address] [place] [address] May, [facility] [address] [facility] [id number] [address] [place] [address] Apr, Type 2 diabetes mellitus wit h complication E11.8 ; Mild intellectual disability F70 ; Gastroesophageal reflux disease without esophagitis K21.9 ; Reactive airway disease, mild intermittent, uncomplicated J45.20 and Tobacco abuse Z72.0 [facility] [address] [place] [id number] [address] [place] [address] Apr, High risk medication use Z79 .899 ; Mild intellectual disability F70 ; Intermittent explosive disorder in adult F63.81 and Bipolar disorder, unspecified F31.9 [facility] [address] [place] [id number] [place] [address] [phone] Mar, Encounter for dental exam an d cleaning w/o abnormal findings Z01.20 [facility] [id number] [place] [id number] Mar, Dental examination Z01.20 [facility] [address] [facility] [id number] [address] [place] [address] Jan, [facility] [address] [facility] [id number] [address] [place] [address] Jan, [facility] [address] [facility] [id number] [address] [place] [address] Jan, Mild intellectual disability F70 ; Bipolar disorder, unspecified F31.9 and Intermittent explosive disorder in adult F63.81 [facility] [address] [facility] [id number] [address] [place] [address] 02 Jan, 2017 Diabetes E11.9 [facility] [address] [id number] [address] [place] [address] [id number] 13 Dec, 2016 Encounter for dental examina tion and cleaning without abnormal findings Z01.20 [facility] [address] [id number] [address] [place] [phone] 12 Dec, 2016 Bipolar disorder, unspecifie d F31.9 ; Intermittent explosive disorder in adult F63.81 and Mild intellectual disability F70 [facility] [address] [id number] [address] [place] [address] Nov, Diabetes E11.9 [facility] [address] [id number] [address] [place] [address] Nov, [facility] [address] [facility] [id number] [address] [place] [address] Nov, Diabetes E11.9 and Colon can cer screening Z12.[id number] [place] [address] [id number] Sep, Dental examination Z01.20 [facility] [address] [facility] [id number] [address] [place] [address] [id number] 21 Sep, 2016 Encounter for dental examina tion and cleaning without abnormal findings Z01.20 [facility] [address] [id number] [address] [place] [phone] 13 Sep, 2016 Bipolar disorder, unspecifie d F31.9 [facility] [address] [id number] [address] [place] [address] Sep, Bipolar disorder, unspecifie d F31.9 [facility] [address] [id number] [address] [place] [address] Jul, [facility] [address] [facility] [id number] [address] [place] [address] Jul, Type 2 diabetes mellitus wit h complication E11.8 [facility] [address] [facility] [id number] [address] [place] [address] [id number] 15 Jun, 2016 Encounter for dental examina tion and cleaning without abnormal findings Z01.20 [facility] [address] [id number] [id number] 15 Jun, 2016 Dental examination Z01.20 [facility] [address] [id number] [address] [place] [address] 18 Apr, 2016 Sports physical Z02.5 [facility] [address] [id number] [address] [place] [address] 14 Mar, 2016 Bipolar disorder, in partial remission, most recent episode manic F31.73 and Intermittent explosive disorder in adult F63.81 [facility] [address] [facility] [id number] [address] [place] [address] 08 Mar, 2016 [facility] [address] [facility] [id number] [address] [place] [address] 06 Mar, 2016 Diabetes E11.9 [facility] [address] [id number] [address] [place] [address] [phone] Feb, Encounter for dental examina tion and cleaning without abnormal findings Z01.20 [facility] [address] [id number] [address] [place] [address] 22 Dec, 2015 Nocturnal hypoxemia G47.34 a nd Encounter for immunization Z23 [facility] [address] [id number] [address] [place] [address] 15 Dec, 2015 [facility] [address] [id number] [address] [place] [address] Dec, [facility] [address] [id number] [address] [place] [address] Dec, Bipolar disorder, unspecifie d F31.9 [facility] [address] [id number] [address] [place] [address] [id number] Oct, Encounter for dental examina tion and cleaning without abnormal findings Z01.20 [facility] [id number] [place] [id number] Oct, Dental examination Z01.20 [facility] [address] [facility] [id number] [address] [place] [address] Oct, Diabetes E11.9 [place] [address] [facility] [id number] [address] [place] [address] Oct, Diabetes E11.9 ; Reactive ai rway disease, mild intermittent, uncomplicated J45.20 and Tobacco abuse Z72.0 [place] [address] [place] [id number] [address] [place] [address] Sep, Bipolar disorder, unspecifie d F31.9 and Depression F32.9 [place] [address] [place] [id number] [address] [place] [address] Sep, [place] [address] [address] August, Tinea pedis of both feet B35 .3 and DM w/o complication type II, uncontrolled E11.65 [place] [address] [place] [id number] [address] [place] [address] Jul, [place] [address] [place] [id number] [address] [place] [address] Jul, [place] [address] [place] [id number] [address] [place] [address] Jul, Obstructive sleep apnea G47. 33 [place] [address] [facility] [id number] [address] [place] [address] Jun, Diabetes E11.9 [facility] [address] [facility] [id number] [address] [place] [address] Jun, [place] [address] [facility] [id number] [address] [place] [id number] Jun, [facility] [address] [facility] [id number] [address] [place] [address] Jun, Bipolar disorder, unspecifie d F31.9 and Mental retardation F79 [place] [address] [place] [id number] [address] [place] [address] Apr, [place] [address] [address] Feb, Diabetes E11.9 ; Encounter f or immunization Z23 ; Cough R05 and Nicotine abuse Z72.0 [place] [address] [address] Jan, Bipolar disorder, unspecifie d F31.9 and Diabetes mellitus without mention of complication, type II or unspecified type, uncontrolled 250.02 [place] [address] [address] Jan, [place] [address] [address] Dec, Reactive airway disease 493. 90 and Enuresis 788.30 [place] [address] [address] Dec, [place] [address] [address] Nov, [place] [address] [address] Nov, [place] [address] [address] Nov, Annual physical exam V70.0 ; Urinary incontinence 788.30 ; Diabetes 250.00 and Hypertension 401.9 [place] [address] [place] [id number] [address] [place] [address] Oct, Diabetes mellitus without me ntion of complication, type II or unspecified type, uncontrolled 250.02 [place] [address] [place] [id number] [address] [place] [address] Oct, Diabetes mellitus without me ntion of complication, type II or unspecified type, uncontrolled 250.02 [place] [address] [place] [address] [place] [address] Oct, Diabetes mellitus without me ntion of complication, type II or unspecified type, uncontrolled 250.02 [facility] [address] [id number] [address] [place] [address] Oct, [facility] [address] [id number] [address] [place] [address] Oct, [facility] [address] [id number] [address] [place] [address] Oct, Bipolar disorder, unspecifie d 296.80 [facility] [address] [id number] [place] [id number] Sep, Dental examination V72.2 [facility] [address] [id number] [address] [place] [address] August, [facility] [address] [id number] [place] [address] [id number] August, Dental examination V72.2 [facility] [address] [id number] [address] [place] [address] August, [facility] [address] [id number] [address] [place] [address] Jul, [facility] [address] [id number] [address] [place] [address] Jul, [facility] [address] [id number] [address] [place] [id number] Jun, [facility] [address] [id number] [address] [place] [address] Jun, [facility] [address] [id number] [address] [place] [address] Jun, [facility] [address] [id number] [address] [place] [id number] Jun, [facility] [address] [id number] [address] [place] [address] May, 2014 [facility] [address] [id number] [address] [place] [address], [place] [address] 23 May, 2014 [facility] [address] [id number] [address] [place] [address], [place] [address] 16 May, 2014 [facility] [address] [id number] [address] [place] [address], [place] [address] 16 May, 2014 [facility] [address] [id number] [address] [place] [address], [place] [address] 16 May, 2014 [facility] [address] [id number] [address] [place] [address], [place] [address] 16 May, 2014 [facility] [address] [id number] [address] [place] [address], [place] [address] 16 May, 2014 [facility] [address] [id number] [address] [place] [address], [place] [address] 16 May, 2014 [facility] [address] [id number] [address] [place] [address], [place] [address] 16 May, 2014 [facility] [address] [id number] [address] [place] [address], [place] [address] 16 May, 2014 [facility] [address] [id number] [address] [place] [address], [place] [address] 16 May, 2014 [facility] [address] [id number] [address] [place] [address], [place] [address] 16 May, 2014 [facility] [address] [id number] [address] [place] [address], [place] [address] 16 May, 2014 [facility] [address] [id number] [address] [place] [address], [place] [address] 16 May, 2014 [facility] [address] [id number] [address] [place] [address], [place] [address] 16 May, 2014 [facility] [address] [id number] [address] [place] [address], [place] [address] Apr, [facility] [address] [id number] [address] [place] [address], [place] [address] Apr, [facility] [address] [id number] [address] [place] [address], [place] [address] Apr, [facility] [address] [id number] [address] [place] [address], [place] [address] Apr, [facility] [address] [id number] [address] [place] [address], [place] [address] Apr, [facility] [address] [id number] [address] [place] [address], [place] [address] Apr, [facility] [address] [id number] [address] [place] [address], [place] [address] Apr, [facility] [address] [id number] [address] [place] [address], [place] [address] Apr, [facility] [address] [id number] [address] [place] [address], [place] [address] Apr, [facility] [address] [id number] [address] [place] [address], [place] [address] Apr, [facility] [address] [id number] [address] [place] [address], [place] [address] Apr, [facility] [address] [id number] [address] [place] [address], [place] [address] Apr, [facility] [address] [id number] [address] [place] [address], [place] [address] Mar, [facility] [address] [id number] [address] [place] [address], [place] [address] Mar, [facility] [address] [id number] [address] [place] [address], [place] [address] Mar, [facility] [address] [id number] [address] [place] [address], [place] [address] Mar, [facility] [address] [id number] [address] [place] [address], [place] [address] 10 Mar, 2014 [facility] [address] [id number] [address] [place] [address], [place] [address] Mar, [facility] [address] [id number] [address] [place] [address], [place] [address] Feb, [facility] [address] [id number] [address] [place] [address], [place] [address] Feb, [facility] [address] [id number] [address] [place] [address], [place] [address] Feb, [facility] [address] [id number] [address] [place] [address], [place] [address] Feb, [facility] [address] [id number] [address] [place] [address], [place] [address] 14 Jan, 2014 [facility] [address] [id number] [address] [place] [address], [place] [address] 14 Jan, 2014 [facility] [address] [id number] [address] [place] [address], [place] [address] 14 Jan, 2014 [facility] [address] [id number] [address] [place] [address], [place] [address] 14 Jan, 2014 [facility] [address] [id number] [address] [place] [address], [place] [address] 22 Dec, 2013 [facility] [address] [id number] [address] [place] [address], [place] [address] 22 Dec, 2013 [facility] [address] [id number] [address] [place] [address], [place] [address] 15 Dec, 2013 [facility] [address] [id number] [address] [place] [address], [place] [address] 15 Dec, 2013 [facility] [address] [id number] [address] [place] [address], [place] [address] Nov, [facility] [address] [id number] [address] [place] [address], [place] [address] Nov, [facility] [address] [id number] [facility] [address] Nov, [facility] [address] [id number] [facility] [address] Nov, [facility] [address] [id number] [facility] [address] Nov, [facility] [address] [id number] [facility] [address] Nov, [facility] [address] [id number] [address] [place] [address], [place] [address] Nov, [facility] [address] [id number] [address] [place] [address], [place] [address] Oct, [facility] [address] [id number] [address] [place] [address], [place] [address] Oct, [facility] [address] [id number] [address] [place] [address], [place] [address] Oct, [facility] [address] [id number] [address] [place] [address], [place] [address] Oct, [facility] [address] [id number] [address] [place] [address], [place] [address] Oct, [facility] [address] [id number] [address] [place] [address], [place] [address] Oct, [facility] [address] [id number] [address] [place] [address], [place] [address] Oct, [facility] [address] [id number] [address] [place] [address], [place] [address] Sep, [facility] [address] [id number] [address] [place] [address], [place] [address] Sep, [facility] [address] [id number] [address] [place] [address], [place] [address] Sep, [facility] [address] [id number] [address] [place] [address], [place] [address] Sep, [facility] [address] [id number] [facility] [address] Sep, [facility] [address] [id number] [address] [place] [address], [place] [address] Jul, [facility] [address] [id number] [address] [place] [address], [place] [address] Jul, [facility] [address] [id number] [address] [place] [address], [place] [address] Jul, [facility] [address] [id number] [address] [place] [address], [place] [address] Jul, [facility] [address] [id number] [address] [place] [address], [place] [address] Jul, [facility] [address] [id number] [address] [place] [address], [place] [address] Jul, [facility] [address] [id number] [address] [place] [address], [place] [address] Jul, [facility] [address] [id number] [address] [place] [address], [place] [address] Jul, [facility] [address] [id number] [address] [place] [address], [place] [address] Jul, [facility] [address] [id number] [address] [place] [address], [place] [address] Jul, [facility] [address] [id number] [address] [place] [address], [place] [address] Jul, [facility] [address] [id number] [address] [place] [address], [place] [address] Jul, [facility] [address] [id number] [address] [place] [address], [place] [address] Jun, [facility] [address] [id number] [address] [place] [address], [place] [address] Jun, [facility] [address] [id number] [address] [place] [address], [place] [address] Jun, [facility] [address] [id number] [address] [place] [address], [place] [address] Jun, [facility] [address] [id number] [address] [place] [address], [place] [address] Jun, [facility] [address] [id number] [address] [place] [address], [place] [address] Jun, [facility] [address] [id number] [address] [place] [address], [place] [address] Jun, [facility] [address] [id number] [address] [place] [address], [place] [address] Jun, [facility] [address] [id number] [address] [place] [address], [place] [address] May, [facility] [address] [id number] [address] [place] [address], [place] [address] May, [facility] [address] [id number] [address] [place] [address], [place] [address] May, [facility] [address] [id number] [address] [place] [address], [place] [address] May, [facility] [address] [id number] [address] [place] [address], [place] [address] May, [facility] [address] [id number] [address] [place] [address], [place] [address] May, [facility] [address] [id number] [address] [place] [address], [place] [address] May, [facility] [address] [id number] [address] [place] [address], [place] [address] May, [facility] [address] [id number] [address] [place] [address], [place] [address] Apr, [facility] [address] [id number] [address] [place] [address] [address] Apr, [facility] [address] [id number] [address] [place] [address], [place] [address] Apr, [facility] [address] [id number] [address] [place] [address], [place] [address] Apr, [facility] [address] [id number] [address] [place] [address], [place] [address] Mar, [facility] [address] [id number] [address] [place] [address], [place] [address] Mar, [facility] [address] [id number] [address] [place] [address], [place] [address] Mar, [facility] [address] [id number] [address] [place] [address], [place] [address] Feb, [facility] [address] [id number] [address] [place] [address], [place] [address] Feb, [facility] [address] [id number] [address] [place] [address], [place] [address] Feb, [facility] [address] [id number] [address] [place] [address], [place] [address] Feb, [facility] [address] [id number] [address] [place] [address], [place] [address] Feb, [facility] [address] [id number] [address] [place] [address], [place] [address] Feb, [facility] [address] [id number] [address] [place] [address], [place] [address] Jan, [facility] [address] [id number] [address] [place] [address], [place] [address] Jan, [facility] [address] [id number] [address] [place] [address], [place] [address] Jan, [facility] [address] [id number] [address] [place] [address], [place] [address] Jan, [facility] [address] [id number] [address] [place] [address], [place] [address] Jan, [facility] [address] [id number] [address] [place] [address], [place] [address] Jan, [facility] [address] [id number] [address] [place] [address], [place] [address] Jan, [facility] [address] [id number] [address] [place] [address], [place] [address] Dec, [facility] [address] [id number] [address] [place] [address], [place] [address] 16 Dec, 2012 [facility] [address] [id number] [address] [place] [address], [place] [address] Dec, [facility] [address] [id number] [address] [place] [address], [place] [address] Dec, [facility] [address] [id number] [address] [place] [address], [place] [address] Nov, [facility] [address] [id number] [address] [place] [address], [place] [address] Nov, [facility] [address] [id number] [address] [place] [address], [place] [address] Nov, [facility] [address] [id number] [address] [place] [address], [place] [address] Nov, [facility] [address] [id number] [address] [place] [address], [place] [address] Nov, [facility] [address] [id number] [address] [place] [address], [place] [address] Nov, [facility] [address] [id number] [address] [place] [address], [place] [address] Nov, [facility] [address] [id number] [address] [place] [address], [place] [address] Oct, [facility] [address] [id number] [address] [place] [address], [place] [address] Oct, [facility] [address] [id number] [address] [place] [address], [place] [address] Oct, [facility] [address] [id number] [address] [place] [address], [place] [address] Oct, [facility] [address] [id number] [address] [place] [address], [place] [address] Oct, [facility] [address] [id number] [address] [place] [address], [place] [address] Oct, [facility] [address] [id number] [address] [place] [address], [place] [address] Oct, [facility] [address] [id number] [address] [place] [address], [place] [address] Oct, [facility] [address] [id number] [address] [place] [address], [place] [address] Sep, [facility] [place] [id number] [address] [facility] [id number] [place] [address] [id number] August, [facility] [address] [id number] [address] [place] [address], [place] [address] August, [facility] [address] [id number] [address] [place] [address], [place] [address] Jul, [facility] [address] [id number] [address] [place] [address], [place] [address] Jul, [facility] [address] [id number] [address] [place] [address], [place] [address] Jul, [facility] [address] [id number] [address] [place] [address], [place] [address] Jul, [facility] [address] [id number] [address] [place] [address], [place] [address] Jul, [facility] [address] [id number] [address] [place] [address], [place] [address] Jul, [facility] [address] [id number] [address] [place] [address], [place] [address] 16 Jul, 2012 [facility] [address] [id number] [address] [place] [address], [place] [address] Jun, [facility] [address] [id number] [address] [place] [address], [place] [id number] 18 Jun, 2012 [facility] [address] [id number] [address] [place] [address], [place] [address] 11 Jun, 2012 [facility] [address] [id number] [address] [place] [address], [place] [address] 04 Jun, 2012 [facility] [address] [id number] [address] [place] [address], [place] [address] 04 Jun, 2012 [facility] [address] [id number] [address] [place] [address], [place] [id number] 19 May, 2012 [facility] [address] [id number] [address] [place] [address], [place] [address] 18 May, 2012 [facility] [address] [id number] [address] [place] [address], [place] [address] 04 May, 2012 [facility] [address] [id number] [address] [place] [address], [place] [address] 15 Apr, 2012 [facility] [address] [id number] [address] [place] [address], [place] [id number] 14 Apr, 2012 [facility] [address] [id number] [address] [place] [address], [place] [address] 07 Apr, 2012 [facility] [address] [id number] [address] [place] [address], [place] [address] Mar, [facility] [address] [id number] [address] [place] [address], [place] [address] Mar, [facility] [address] [id number] [address] [place] [address], [place] [address] Mar, [facility] [address] [id number] [address] [place] [address], [place] [address] Mar, [facility] [address] [id number] [address] [place] [address], [place] [address] Mar, [facility] [address] [id number] [address] [place] [address], [place] [address] Mar, [facility] [address] [id number] [address] [place] [address], [place] [id number] Feb, [facility] [address] [id number] [address] [place] [address], [place] [address] Feb, [facility] [address] [id number] [address] [place] [address], [place] [id number] Jan, [facility] [address] [id number] [address] [place] [address], [place] [address] Jan, [facility] [address] [id number] [address] [place] [address], [place] [address] Dec, [facility] [address] [id number] [address] [place] [address], [place] [address] Nov, [facility] [address] [id number] [address] [place] [address], [place] [address] Nov, [facility] [address] [id number] [address] [place] [address], [place] [address] Nov, [facility] [address] [id number] [address] [place] [address], [place] [address] Nov, [facility] [address] [id number] [address] [place] [address], [place] [address] Oct, [facility] [address] [id number] [address] [place] [address], [place] [address] Oct, [facility] [address] [id number] [address] [place] [address], [place] [address] Oct, [facility] [address] [id number] [address] [place] [address], [place] [address] Sep, [facility] [address] [id number] [address] [place] [address], [place] [id number] 14 Sep, 2011 [facility] [address] [id number] [address] [place] [address], [place] [id number] Sep, [facility] [address] [id number] [address] [place] [address], [place] [id number] August, [facility] [address] [id number] [address] [place] [address], [place] [address] August, [facility] [address] [id number] [address] [place] [address], [place] [address] Jul, [facility] [address] [id number] [address] [place] [address], [place] [address] Jul, [facility] [address] [id number] [address] [place] [address], [place] [address] Jul, [facility] [address] [id number] [address] [place] [address], [place] [address] Jul, [facility] [address] [id number] [address] [place] [address], [place] [address] Jun, [facility] [address] [id number] [address] [place] [address], [place] [id number] May, [facility] [address] [id number] [address] [place] [address], [place] [address] Apr, [facility] [address] [id number] [address] [place] [address], [place] [id number] Apr, [facility] [address] [id number] [address] [place] [address], [place] [id number] Apr, [facility] [address] [id number] [address] [place] [address], [place] [address] Apr, [facility] [address] [id number] [address] [place] [address], [place] [address] Apr, [facility] [address] [id number] [address] [place] [address], [place] [id number] Apr, [facility] [address] [id number] [address] [place] [address], [place] [address] Mar, [facility] [address] [id number] [address] [place] [address], [place] [address] Mar, [facility] [address] [id number] [address] [place] [address], [place] [address] Feb, [facility] [address] [id number] [address] [place] [address], [place] [address] Feb, [facility] [address] [id number] [address] [place] [address], [place] [address] Feb, [facility] [address] [id number] [address] [place] [address], [place] [address] Feb, [facility] [address] [id number] [address] [place] [address], [place] [address] Jan, [facility] [address] [id number] [address] [place] [address], [place] [address] Jan, [facility] [address] [id number] [address] [place] [address], [place] [address] Jan, [facility] [address] [id number] [address] [place] [address], [place] [address] Jan, [facility] [address] [id number] [address] [place] [address], [place] [address] Nov, [facility] [address] [id number] [address] [place] [address], [place] [address] Mar, [facility] [address] [id number] [address] [place] [address], [place] [address] Mar, [facility] [address] [id number] [address] [place] [address], [place] [id number] 30 Feb, 2010 [facility] [address] [id number] [address] [place] [address], [place] [id number] 15 Feb, 2010 [facility] [address] [id number] [address] [place] [address], [place] [address] Jan, [facility] [address] [id number] [address] [place] [id number] Jan, [facility] [address] [id number] [address] [place] [id number] Sep, [facility] [address] [id number] [address] [place] [id number] 16 May, 2009 [facility] [address] [id number] [address] [place] [address] Apr, [facility] [address] [id number] [address] [place] [id number] Mar, [facility] [address] [id number] [address] [place] [id number] Feb, [facility] [address] [id number] [address] [place] [id number] Feb, [facility] [address] [id number] [address] [place] [address] Feb, [facility] [address] [id number] [address] [place] [id number] Jan, [facility] [address] [id number] [address] [place] [address] Jan, [facility] [address] [id number] [address] [place] [id number] Jan, [facility] [address] [id number] [address] [place] [id number] Jan, [facility] [address] [id number] [address] [place] [id number] August, IMMUNIZATIONS No Known Immunizations SOCIAL HISTORY [...] ied 09/2019 Hospitalization History surgery Hospitalization History [facility], [facility] treatment few times for BH
--- OUTSIDE RECORDS SUMMARY | 2019-11-26 06:17 | XMS REPORT ---
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 Active 13354908 Problem Hypertensive retinopathy of both eyes H35.033 Active 2952509 Problem Open-angle glaucoma of both eyes, unspecified glaucoma stage, unspecified open-angle glaucoma type H40.10X0 Acti ve 33412402 Problem Obstructive sleep apnea G47.33 Active 57829113 Problem Type 2 diabetes mellitus with complication E11.8 Active 96983411 Problem Intermittent explosive disorder in adult F63.81 Active 25811280 Problem Bipolar disorder, unspecified F31.9 Active 18944789 Problem Mild intellectual disability F70 A ctive 31419977 Problem Other specified urinary incontinence N39.498 Active 237647184 Problem Diabetes E11.9 Active 72615594 Problem Type 2 diabetes mellitus wit h diabetic neuropathy, unspecified whether intermediate insulin use E11.40 Active 087095 279969807 Problem Essential hypertension I10 Active 32751610 Problem Reactive airway disease, mild intermittent, uncomplicated J45.20 Active 215112573 Problem Gastroesophageal reflux disease without esophagitis K21.9 Active 331574768 Problem Other diabetic neurological complication associated with type 2 diabetes mellitus E11.49 Active 820270468 Problem Neuropathy G62.9 Active [id number] ALLERGIES No Information ENCOUNTERS Encounter Location Date Diagnosis [facility] [address] [facility] [id number] [address] [place] [id number] 09 Jan, 2020 [facility] [address] [facility] [id number] [address] [place] [phone] Dec, [facility] [address] [facility] [id number] [address] [place] [phone] Oct, Callus of foot L84 ; Hyperhi drosis R61 ; Onychomycosis B35.1 and Tinea pedis of both feet B35.3 [place] [address] [place] [id number] [address] [place] [phone] 23 Sep, 2019 [place] [address] [address] Sep, [place] [address] [address] Sep, [place] [address] [address] Sep, Essential hypertension I10 [place] [address] [address] August, Intermittent explosive disor salvatore in adult F63.81 ; Bipolar disorder, unspecified F31.9 and Mild intellectual disability F70 [place] [address] [place] [id number] [address] [place] [phone] Jul, Type 2 diabetes mellitus wit h diabetic neuropathy, unspecified whether intermediate insulin use E11.40 and Colon cancer screening Z12.11 [place] [address] [place] [id number] [address] [place] [phone] Jul, Type 2 diabetes mellitus wit h diabetic neuropathy, unspecified whether intermediate insulin use E11.40 and Tinea pedis, unspecified laterality B35.3 [place] [address] [place] [id number] [address] [place] [phone] Jun, [place] [address] [place] [id number] [address] [place] [phone] Jun, [facility] [address] [address] 04 Jun, 2019 Dysuria R30.0 [place] [address] [address] Jun, [place] [address] [place] [id number] [address] [place] [phone] 20 May, 2019 Influenza J11.1 [facility] [address] [facility] [id number] [address] [place] [phone] 13 May, 2019 Intermittent explosive disor salvatore in adult F63.81 [facility] [address] [place] [id number] [address] [place] [phone] May, [facility] [address] [place] [id number] [address] [place] [address] Apr, Intermittent explosive disor salvatore in adult F63.81 ; Bipolar disorder, unspecified F31.9 and Mild intellectual disability F70 [facility] [address] [place] [id number] [place] [id number] Apr, Oral health maintenance stat us requiring routine preventive dental care K08.9 [place] [address] [place] [id number] [address] [place] [phone] Apr, Type 2 diabetes mellitus wit h complication E11.8 ; History of test for hearing Z92.89 ; Colon cancer screening Z12.11 ; Other specified urinary incontinence N39.498 and Impacted cerumen, right ear H61.21 [place] [address] [place] [id number] [address] [place] [id number] 10 Apr, 2019 Onychomycosis B35.1 ; Other diabetic neurological complication associated with type 2 diabetes mellitus E11.49 and Tinea pedis of both feet B35.3 [place] [address] [place] [id number] [address] [place] [phone] Feb, [place] [address] [place] [id number] [address] [place] [phone] Jan, [place] [address] [place] [id number] [address] [place] [phone] Jan, [place] [address] [place] [id number] [address] [place] [phone] Jan, [place] [address] [place] [id number] [address] [place] [phone] Jan, [facility] [address] [facility] [id number] [address] [place] [phone] Jan, [facility] [address] [facility] [id number] [address] [place] [phone] Jan, [facility] [address] [facility] [id number] [address] [place] [phone] Jan, [facility] [address] [facility] [id number] [address] [place] [phone] Jan, Anemia D64.9 [facility] [address] [place] [id number] [place] [phone] Jan, Dental examination Z01.20 an d Oral health maintenance status requiring routine preventive dental care K08.9 [facility] [address] [facility] [id number] [address] [place] [phone] Jan, Onychomycosis B35.1 and Othe r diabetic neurological complication associated with type 2 diabetes mellitus E11.49 [facility] [address] [facility] [id number] [address] [place] [phone] Jan, Anemia D64.9 [facility] [address] [facility] [id number] [address] [place] [phone] Jan, [facility] [address] [facility] [id number] [address] [place] [phone] Dec, Urinary tract infection with out hematuria, site unspecified N39.0 [facility] [address] [facility] [id number] [address] [place] [phone] Dec, Type 2 diabetes mellitus wit h complication E11.8 ; Urinary tract infection without hematuria, site unspecified N39.0 ; Impacted cerumen of both ears H61.23 ; Encounter for immunization Z23 and Hyponatremia E87.1 [facility] [address] [facility] [id number] [address] [place] [phone] Dec, Intermittent explosive disor salvatore in adult F63.81 ; Dysuria R30.0 ; Type 2 diabetes mellitus with complication E11.8 ; Bipolar disorder, unspecified F31.9 and Mild intellectual disability F70 [facility] [address] [facility] [id number] [address] [place] [phone] Dec, Dysuria R30.0 [facility] [address] [facility] [id number] [address] [place] [id number] Dec, Intermittent explosive disor salvatore in adult F63.81 ; Bipolar disorder, unspecified F31.9 and Mild intellectual disability F70 [facility] [address] [facility] [id number] [address] [place] [phone] Nov, [facility] [address] [facility] [id number] [address] [place] [phone] Oct, [facility] [address] [facility] [id number] [place] [phone] Oct, Oral health maintenance stat us requiring routine preventive dental care K08.9 [facility] [address] [facility] [id number] [address] [place] [phone] August, Intermittent explosive disor salvatore in adult F63.81 ; Bipolar disorder, unspecified F31.9 and Mild intellectual disability F70 [facility] [address] [id number] [address] [place] [id number] August, Dental caries K02.9 [facility] [address] [facility] [id number] [address] [place] [phone] Jul, Onychomycosis B35.1 ; Other diabetic neurological complication associated with type 2 diabetes mellitus E11.49 and Tinea pedis of both feet B35.3 [facility] [address] [id number] [address] [place] [address] [id number] Jul, Caries K02.9 [facility] [address] [facility] [id number] [address] [place] [phone] Jul, Type 2 diabetes mellitus wit h complication E11.8 ; Tobacco abuse Z72.0 and Bipolar disorder, unspecified F31.9 [facility] [address] [place] [id number] [address] [place] [phone] Jun, [facility] [address] [facility] [id number] [address] [place] [address] [id number] Jun, Dental examination Z01.20 an d Oral health maintenance status requiring routine preventive dental care K08.9 [facility] [id number] [place] [phone] 11 May, 2018 Bilateral impacted cerumen H 61.23 [facility] [address] [place] [id number] [address] [place] [id number] Apr, Bipolar disorder, unspecifie d F31.9 ; Intermittent explosive disorder in adult F63.81 ; Type 2 diabetes mellitus with complication E11.8 ; Tobacco abuse Z72.0 and Colon cancer screening Z12.11 [facility] [address] [place] [id number] [address] [place] [id number] Apr, Onychomycosis B35.1 and Othe r diabetic neurological complication associated with type 2 diabetes mellitus E11.49 [facility] [address] [place] [id number] [address] [place] [phone] Apr, Intermittent explosive disor salvatore in adult F63.81 ; Bipolar disorder, unspecified F31.9 and Mild intellectual disability F70 [facility] [address] [place] [id number] [address] [place] [phone] Mar, Diabetes E11.9 [facility] [address] [place] [id number] [address] [place] [phone] Jan, Encounter for immunization Z 23 [facility] [address] [place] [id number] [address] [place] [phone] Jan, Tinea pedis of both feet B35 .3 ; Other diabetic neurological complication associated with type 2 diabetes mellitus E11.49 and Onychomycosis B35.1 [facility] [address] [place] [id number] [address] [place] [phone] Nov, Type 2 diabetes mellitus wit h complication E11.8 [facility] [address] [facility] [id number] [address] [place] [phone] Nov, [facility] [address] [facility] [id number] [address] [place] [phone] Oct, Intermittent explosive disor salvatore in adult F63.81 ; Bipolar disorder, unspecified F31.9 and Mild intellectual disability F70 [facility] [address] [facility] [id number] [address] [place] [phone] Oct, [facility] [address] [facility] [id number] [address] [place] [address] [id number] Oct, Dental examination Z01.20 [facility] [address] [place] [id number] [address] [place] [phone] Oct, Onychomycosis B35.1 and Othe r diabetic neurological complication associated with type 2 diabetes mellitus E11.49 [place] [address] [place] [id number] [address] [place] [phone] Sep, Type 2 diabetes mellitus wit h complication E11.8 and Colon cancer screening Z12.11 [place] [address] [place] [id number] [address] [place] [phone] Sep, Type 2 diabetes mellitus wit h complication E11.8 ; Colon cancer screening Z12.11 and Neuropathy G62.9 [facility] [address] [facility] [id number] [address] [place] [phone] August, Diabetes E11.9 [facility] [address] [facility] [id number] [address] [place] [address] [id number] Jul, Dental examination Z01.20 [facility] [address] [facility] [id number] [address] [place] [phone] May, Mild intellectual disability F70 [facility] [address] [facility] [id number] [address] [place] [phone] 07 May, 2017 Mild intellectual disability F70 ; High risk medication use Z79.899 ; Intermittent explosive disorder in adult F63.81 and Bipolar disorder, unspecified F31.9 [facility] [address] [id number] [address] [place] [phone] May, [facility] [address] [id number] [address] [place] [phone] May, [facility] [address] [id number] [address] [place] [phone] Apr, Type 2 diabetes mellitus wit h complication E11.8 ; Mild intellectual disability F70 ; Gastroesophageal reflux disease without esophagitis K21.9 ; Reactive airway disease, mild intermittent, uncomplicated J45.20 and Tobacco abuse Z72.0 [facility] [address] [id number] [address] [place] [phone] Apr, High risk medication use Z79 .899 ; Mild intellectual disability F70 ; Intermittent explosive disorder in adult F63.81 and Bipolar disorder, unspecified F31.9 [facility] [id number] [place] [address] [id number] Mar, Encounter for dental exam an d cleaning w/o abnormal findings Z01.20 [facility] [address] [id number] [address] [place] [address] [id number] Mar, Dental examination Z01.20 [facility] [address] [id number] [address] [place] [phone] 12 Jan, 2017 [facility] [address] [id number] [address] [place] [phone] Jan, [facility] [address] [id number] [address] [place] [id number] 10 Jan, 2017 Mild intellectual disability F70 ; Bipolar disorder, unspecified F31.9 and Intermittent explosive disorder in adult F63.81 [facility] [address] [id number] [address] [place] [id number] 02 Jan, 2017 Diabetes E11.9 [facility] [address] [id number] [address] [place] [address] [id number] Dec, Encounter for dental examina tion and cleaning without abnormal findings Z01.20 [facility] [address] [id number] [address] [place] [phone] 12 Dec, 2016 Bipolar disorder, unspecifie d F31.9 ; Intermittent explosive disorder in adult F63.81 and Mild intellectual disability F70 [facility] [address] [id number] [address] [place] [phone] Nov, Diabetes E11.9 [facility] [address] [id number] [address] [place] [phone] Nov, [facility] [address] [id number] [address] [place] [id number] Nov, Diabetes E11.9 and Colon can cer screening Z12.11 [facility] [address] [id number] [id number] Sep, Dental examination Z01.20 [facility] [address] [id number] [address] [place] [address] [id number] Sep, Encounter for dental examina tion and cleaning without abnormal findings Z01.20 [facility] [address] [id number] [address] [place] [id number] Sep, Bipolar disorder, unspecifie d F31.9 [facility] [address] [id number] [address] [place] [phone] Sep, Bipolar disorder, unspecifie d F31.9 [facility] [address] [id number] [address] [place] [phone] Jul, [facility] [address] [id number] [address] [place] [phone] 13 Jul, 2016 Type 2 diabetes mellitus wit h complication E11.8 [facility] [address] [id number] [address] [place] [address] [id number] 15 Jun, 2016 Encounter for dental examina tion and cleaning without abnormal findings Z01.20 [facility] [address] [id number] [id number] Jun, Dental examination Z01.20 [facility] [address] [id number] [address] [place] [phone] 18 Apr, 2016 Sports physical Z02.5 [facility] [address] [id number] [address] [place] [phone] 14 Mar, 2016 Bipolar disorder, in partial remission, most recent episode manic F31.73 and Intermittent explosive disorder in adult F63.81 [facility] [address] [id number] [address] [place] [phone] 08 Mar, 2016 [facility] [address] [id number] [address] [place] [phone] 06 Mar, 2016 Diabetes E11.9 [facility] [address] [id number] [address] [place] [address] [id number] Feb, Encounter for dental examina tion and cleaning without abnormal findings Z01.20 [facility] [address] [id number] [address] [place] [phone] 22 Dec, 2015 Nocturnal hypoxemia G47.34 a nd Encounter for immunization Z23 [facility] [address] [id number] [address] [place] [phone] 15 Dec, 2015 [facility] [address] [id number] [address] [place] [phone] Dec, [facility] [address] [id number] [address] [place] [phone] Dec, Bipolar disorder, unspecifie d F31.9 [facility] [address] [id number] [address] [place] [address] [id number] Oct, Encounter for dental examina tion and cleaning without abnormal findings Z01.20 [facility] [address] [id number] [id number] Oct, Dental examination Z01.20 [facility] [address] [id number] [address] [place] [phone] Oct, Diabetes E11.9 [facility] [address] [facility] [facility] [id number] [address] [place] [phone] Oct, Diabetes E11.9 ; Reactive ai rway disease, mild intermittent, uncomplicated J45.20 and Tobacco abuse Z72.0 [facility] [address] [facility] [address] [facility] [id number] [address] [place] [phone] Sep, Bipolar disorder, unspecifie d F31.9 and Depression F32.9 [place] [address] [address] [facility] [facility] [id number] [address] [place] [phone] Sep, [place] [address] [address] [facility] NAM[facility] [id number] [address] [place] [phone] August, Tinea pedis of both feet B35 .3 and DM w/o complication type II, uncontrolled E11.65 [place] [address] [facility]ED [facility] [id number] [address] [place] [phone] Jul, [place] [address] [facility]AM[address] [facility] [id number] [address] [place] [phone] Jul, [place] [address] [facility] NAMED [facility] [id number] [address] [place] [phone] Jul, Obstructive sleep apnea G47. 33 [place] [address] [facility] NAMED [facility] [id number] [address] [place] [phone] Jun, Diabetes E11.9 [facility] [address] [facility] [id number] [address] [place] [phone] Jun, [facility] [address] [address] [facility] [id number] [address] [place] [phone] Jun, [facility] [address] [address] [facility] [id number] [address] [place] [phone] Jun, Bipolar disorder, unspecifie d F31.9 and Mental retardation F79 [facility] [address] [facility] [id number] [address] [place] [phone] Apr, [facility] [address] [facility] [id number] [address] [place] [phone] Feb, Diabetes E11.9 ; Encounter f or immunization Z23 ; Cough R05 and Nicotine abuse Z72.0 [place] [address] [id number] Jan, Bipolar disorder, unspecifie d F31.9 and Diabetes mellitus without mention of complication, type II or unspecified type, uncontrolled 250.02 [place] [address] [address] Jan, [place] [address] [address] Dec, Reactive airway disease 493. 90 and Enuresis 788.30 [place] [address] [address] Dec, [place] [address] [address] Nov, [place] [address] [address] Nov, [address] [address] Nov, Annual physical exam V70.0 ; Urinary incontinence 788.30 ; Diabetes 250.00 and Hypertension 401.[address] [address] Oct, Diabetes mellitus without me ntion of complication, type II or unspecified type, uncontrolled 250.02 [place] [address] [address] Oct, Diabetes mellitus without me ntion of complication, type II or unspecified type, uncontrolled 250.02 [place] [address] [address] Oct, Diabetes mellitus without me ntion of complication, type II or unspecified type, uncontrolled 250.02 [place] [address] [address] Oct, [facility] [address] [id number] [address] [place] [address] Oct, [facility] [address] [id number] [address] [place] [address] Oct, Bipolar disorder, unspecifie d 296.80 [facility] [address] [id number] [address] [place] [id number] Sep, Dental examination V72.2 [facility] [address] [id number] [address] [place] [address] August, [facility] [address] [id number] [address] [place] [id number] August, Dental examination V72.2 [facility] [address] [id number] [address] [place] [address] August, [facility] [address] [id number] [address] [place] [address] Jul, [facility] [address] [id number] [address] [place] [address] Jul, [facility] [address] [id number] [address] [place] [phone] Jun, [facility] [address] [id number] [address] [place] [address] Jun, [facility] [address] [id number] [address] [place] [address] Jun, [facility] [address] [id number] [address] [place] [address] Jun, [facility] [address] [id number] [address] [place] [address] May, [facility] [address] [id number] [address] [place] [address] May, [facility] [address] [id number] [address] [place] [address] May, 2014 [facility] [address] [id number] [address] [place] [address], [place] [address] 16 May, 2014 [facility] [address] [id number] [address] [place] [address], [place] [address] 16 May, 2014 [facility] [address] [id number] [address] [place] [address], [place] [address] 16 May, 2014 [facility] [address] [id number] [address] [place] [address], [place] [address] 16 May, 2014 [facility] [address] [id number] [address] [place] [address], [place] [address] May, 2014 [facility] [address] [id number] [address] [place] [address], [place] [address] 16 May, 2014 [facility] [address] [id number] [address] [place] [address], [place] [address] 16 May, 2014 [facility] [address] [id number] [address] [place] [address], [place] [address] May, 2014 [facility] [address] [id number] [address] [place] [address], [place] [address] May, 2014 [facility] [address] [id number] [address] [place] [address], [place] [address] 16 May, 2014 [facility] [address] [id number] [address] [place] [address], [place] [address] May, 2014 [facility] [address] [id number] [address] [place] [address], [place] [address] May, [facility] [address] [id number] [address] [place] [address], [place] [address] Apr, [facility] [address] [id number] [address] [place] [address], [place] [address] Apr, [facility] [address] [id number] [address] [place] [address] Apr, [facility] [address] [id number] [address] [place] [address], [place] [address] Apr, [facility] [address] [id number] [address] [place] [address], [place] [address] Apr, [facility] [address] [id number] [address] [place] [address], [place] [address] Apr, [facility] [address] [id number] [address] [place] [address], [place] [address] Apr, [facility] [address] [id number] [address] [place] [address], [place] [address] Apr, [facility] [address] [id number] [address] [place] [address], [place] [address] Apr, [facility] [address] [id number] [address] [place] [address], [place] [address] Apr, [facility] [address] [id number] [address] [place] [address], [place] [address] Apr, [facility] [address] [id number] [address] [place] [address], [place] [address] Apr, [facility] [address] [id number] [address] [place] [address], [place] [address] Mar, [facility] [address] [id number] [address] [place] [address], [place] [address] Mar, [facility] [address] [id number] [address] [place] [address], [place] [address] Mar, [facility] [address] [id number] [address] [place] [address], [place] [address] Mar, [facility] [address] [id number] [address] [place] [address], [place] [address] Mar, [facility] [address] [id number] [address] [place] [address], [place] [address] Mar, [facility] [address] [id number] [address] [place] [address], [place] [address] 13 Feb, 2014 [facility] [address] [id number] [address] [place] [address], [place] [address] 13 Feb, 2014 [facility] [address] [id number] [address] [place] [address], [place] [address] 13 Feb, 2014 [facility] [address] [id number] [address] [place] [address], [place] [address] Feb, [facility] [address] [id number] [address] [place] [address], [place] [address] 14 Jan, 2014 [facility] [address] [id number] [address] [place] [address], [place] [address] 14 Jan, 2014 [facility] [address] [id number] [address] [place] [address], [place] [address] 14 Jan, 2014 [facility] [address] [id number] [address] [place] [address], [place] [address] 14 Jan, 2014 [facility] [address] [id number] [address] [place] [address], [place] [address] 22 Dec, 2013 [facility] [address] [id number] [address] [place] [address], [place] [address] 22 Dec, 2013 [facility] [address] [id number] [address] [place] [address], [place] [address] 15 Dec, 2013 [facility] [address] [id number] [address] [place] [address], [place] [address] 15 Dec, 2013 [facility] [address] [id number] [address] [place] [address], [place] [address] Nov, [facility] [address] [id number] [address] [place] [address], [place] [address] Nov, [facility] [address] [id number] [address] [place] [address], [place] [address] Nov, [facility] [address] [id number] [address] [place] [address], [place] [address] Nov, [facility] [address] [id number] [facility] [place] [address] Nov, [facility] [address] [id number] [facility] [place] [address] Nov, [facility] [address] [id number] [facility] [place] [address] Nov, [facility] [address] [id number] [address] [place] [address], [place] [address] Oct, [facility] [address] [id number] [address] [place] [address], [place] [address] Oct, [facility] [address] [id number] [address] [place] [address], [place] [address] Oct, [facility] [address] [id number] [address] [place] [address], [place] [address] Oct, [facility] [address] [id number] [address] [place] [address], [place] [address] Oct, [facility] [address] [id number] [address] [place] [address], [place] [address] Oct, [facility] [address] [id number] [address] [place] [address], [place] [address] Oct, [facility] [address] [id number] [address] [place] [address], [place] [address] Sep, [facility] [address] [id number] [address] [place] [address], [place] [address] Sep, [facility] [address] [id number] [address] [place] [address], [place] [address] Sep, [facility] [address] [id number] [address] [place] [address], [place] [address] Sep, [facility] [address] [id number] [address] [place] [address], [place] [address] Sep, [facility] [address] [id number] [address] [place] [address], [place] [address] Jul, [facility] [address] [id number] [facility] [place] [address] Jul, [facility] [address] [id number] [address] [place] [address], [place] [address] Jul, [facility] [address] [id number] [address] [place] [address], [place] [address] Jul, [facility] [address] [id number] [address] [place] [address], [place] [address] Jul, [facility] [address] [id number] [address] [place] [address], [place] [address] Jul, [facility] [address] [id number] [address] [place] [address], [place] [address] Jul, [facility] [address] [id number] [address] [place] [address], [place] [address] Jul, [facility] [address] [id number] [address] [place] [address], [place] [address] Jul, [facility] [address] [id number] [address] [place] [address], [place] [address] Jul, [facility] [address] [id number] [address] [place] [address], [place] [address] Jul, [facility] [address] [id number] [address] [place] [address], [place] [address] Jul, [facility] [address] [id number] [address] [place] [address], [place] [address] Jun, [facility] [address] [id number] [address] [place] [address], [place] [address] Jun, [facility] [address] [id number] [address] [place] [address], [place] [address] Jun, [facility] [address] [id number] [address] [place] [address], [place] [address] Jun, [facility] [address] [id number] [address] [place] [address], [place] [address] Jun, [facility] [address] [id number] [address] [place] [address], [place] [address] Jun, [facility] [address] [id number] [address] [place] [address], [place] [address] Jun, [facility] [address] [id number] [address] [place] [address], [place] [address] Jun, [facility] [address] [id number] [address] [place] [address], [place] [address] May, [facility] [address] [id number] [address] [place] [address], [place] [address] May, [facility] [address] [id number] [address] [place] [address], [place] [address] May, [facility] [address] [id number] [address] [place] [address], [place] [address] May, [facility] [address] [id number] [address] [place] [address], [place] [address] May, [facility] [address] [id number] [address] [place] [address], [place] [address] May, [facility] [address] [id number] [address] [place] [address], [place] [address] May, [facility] [address] [id number] [address] [place] [address], [place] [address] May, [facility] [address] [id number] [address] [place] [address], [place] [address] Apr, [facility] [address] [id number] [address] [place] [address], [place] [address] Apr, [facility] [address] [id number] [address] [place] [address], [place] [address] Apr, [facility] [address] [id number] [address] [place] [address], [place] [address] Apr, [facility] [address] [id number] [address] [place] [address], [place] [address] Mar, [facility] [address] [id number] [address] [place] [address], [place] [address] Mar, [facility] [address] [id number] [address] [place] [address], [place] [address] Mar, [facility] [address] [id number] [address] [place] [address], [place] [address] Feb, [facility] [address] [id number] [address] [place] [address], [place] [address] Feb, [facility] [address] [id number] [address] [place] [address], [place] [address] Feb, [facility] [address] [id number] [address] [place] [address], [place] [address] Feb, [facility] [address] [id number] [address] [place] [address], [place] [address] Feb, [facility] [address] [id number] [address] [place] [address], [place] [address] Feb, [facility] [address] [id number] [address] [place] [address], [place] [address] Jan, [facility] [address] [id number] [address] [place] [address], [place] [address] Jan, [facility] [address] [id number] [address] [place] [address], [place] [address] Jan, [facility] [address] [id number] [address] [place] [address], [place] [address] Jan, [facility] [address] [id number] [address] [place] [address], [place] [address] Jan, [facility] [address] [id number] [address] [place] [address], [place] [address] Jan, [facility] [address] [id number] [address] [place] [address], [place] [address] 2013 [facility] [address] [id number] [address] [place] [address], [place] [address] 25 Dec, 2012 [facility] [address] [id number] [address] [place] [address], [place] [address] 16 Dec, 2012 [facility] [address] [id number] [address] [place] [address], [place] [address] 10 Dec, 2012 [facility] [address] [id number] [address] [place] [address], [place] [address] 05 Dec, 2012 [facility] [address] [id number] [address] [place] [address], [place] [address] Nov, [facility] [address] [id number] [address] [place] [address], [place] [address] Nov, [facility] [address] [id number] [address] [place] [address], [place] [address] Nov, [facility] [address] [id number] [address] [place] [address], [place] [address] Nov, [facility] [address] [id number] [address] [place] [address], [place] [address] Nov, [facility] [address] [id number] [address] [place] [address], [place] [address] Nov, [facility] [address] [id number] [address] [place] [address], [place] [address] Nov, [facility] [address] [id number] [address] [place] [address], [place] [address] Oct, [facility] [address] [id number] [address] [place] [address], [place] [address] Oct, [facility] [address] [id number] [address] [place] [address], [place] [address] Oct, [facility] [address] [id number] [address] [place] [address], [place] [address] Oct, [facility] [address] [id number] [address] [place] [address], [place] [address] Oct, [facility] [address] [id number] [address] [place] [address], [place] [address] Oct, [facility] [address] [id number] [address] [place] [address], [place] [address] Oct, [facility] [address] [id number] [address] [place] [address], [place] [address] Oct, [facility] [address] [id number] [address] [place] [address], [place] [address] Sep, Suleiman PEREZ [address] [id number] [place] [id number] August, [facility] [address] [id number] [address] [place] [address], [place] [address] August, [facility] [address] [id number] [address] [place] [address], [place] [address] Jul, [facility] [address] [id number] [address] [place] [address], [place] [address] Jul, [facility] [address] [id number] [address] [place] [address], [place] [address] Jul, [facility] [address] [id number] [address] [place] [address], [place] [address] Jul, [facility] [address] [id number] [address] [place] [address], [place] [address] 18 Jul, 2012 [facility] [address] [id number] [address] [place] [address], [place] [address] 17 Jul, 2012 [facility] [address] [id number] [address] [place] [address], [place] [address] 16 Jul, 2012 [facility] [address] [id number] [address] [place] [address], [place] [address] Jun, [facility] [address] [id number] [address] [place] [address], [place] [address] 18 Jun, 2012 [facility] [address] [id number] [address] [place] [address], [place] [address] 11 Jun, 2012 [facility] [address] [id number] [address] [place] [address], [place] [address] 04 Jun, 2012 [facility] [address] [id number] [address] [place] [address], [place] [address] 04 Jun, 2012 [facility] [address] [id number] [address] [place] [address], [place] [address] 19 May, 2012 [facility] [address] [id number] [address] [place] [address], [place] [address] 18 May, 2012 [facility] [address] [id number] [address] [place] [address], [place] [address] 04 May, 2012 [facility] [address] [id number] [address] [place] [address], [place] [address] 15 Apr, 2012 [facility] [address] [id number] [address] [place] [address], [place] [address] 14 Apr, 2012 [facility] [address] [id number] [address] [place] [address], [place] [address] 07 Apr, 2012 [facility] [address] [id number] [address] [place] [address], [place] [address] 31 Mar, 2012 [facility] [address] [id number] [address] [place] [address], [place] [address] 31 Mar, 2012 [facility] [address] [id number] [address] [place] [address], [place] [address] 13 Mar, 2012 [facility] [address] [id number] [address] [place] [address], [place] [address] 13 Mar, 2012 [facility] [address] [id number] [address] [place] [address], [place] [address] 10 Mar, 2012 [facility] [address] [id number] [address] [place] [address], [place] [address] Mar, [facility] [address] [id number] [address] [place] [address], [place] [address] Feb, [facility] [address] [id number] [address] [place] [address], [place] [address] Feb, [facility] [address] [id number] [address] [place] [address], [place] [address] Jan, [facility] [address] [id number] [address] [place] [address], [place] [address] Jan, [facility] [address] [id number] [address] [place] [address], [place] [address] Dec, [facility] [address] [id number] [address] [place] [address], [place] [address] Nov, [facility] [address] [id number] [address] [place] [address], [place] [address] Nov, [facility] [address] [id number] [address] [place] [address], [place] [address] Nov, [facility] [address] [id number] [address] [place] [address], [place] [address] Nov, [facility] [address] [id number] [address] [place] [address], [place] [address] Oct, [facility] [address] [id number] [address] [place] [address], [place] [address] Oct, [facility] [address] [id number] [address] [place] [address], [place] [address] Oct, [facility] [address] [id number] [address] [place] [address], [place] [address] Sep, [facility] [address] [id number] [address] [place] [address], [place] [address] Sep, [facility] [address] [id number] [address] [place] [address], [place] [address] Sep, [facility] [address] [id number] [address] [place] [address], [place] [address] August, [facility] [address] [id number] [address] [place] [address], [place] [address] August, [facility] [address] [id number] [address] [place] [address], [place] [address] Jul, [facility] [address] [id number] [address] [place] [address], [place] [address] Jul, [facility] [address] [id number] [address] [place] [address], [place] [address] Jul, [facility] [address] [id number] [address] [place] [address], [place] [address] Jul, [facility] [address] [id number] [address] [place] [address], [place] [address] Jun, [facility] [address] [id number] [address] [place] [address], [place] [address] May, [facility] [address] [id number] [address] [place] [address], [place] [address] Apr, [facility] [address] [id number] [address] [place] [address], [place] [address] Apr, [facility] [address] [id number] [address] [place] [address], [place] [address] Apr, [facility] [address] [id number] [address] [place] [address], [place] [address] Apr, [facility] [address] [id number] [address] [place] [address], [place] [address] Apr, [facility] [address] [id number] [address] [place] [address], [place] [address] Apr, [facility] [address] [id number] [address] [place] [address], [place] [address] Mar, [facility] [address] [id number] [address] [place] [address], [place] [address] Mar, [facility] [address] [id number] [address] [place] [address], [place] [address] 29 Feb, 2011 [facility] [address] [id number] [address] [place] [address], [place] [address] Feb, [facility] [address] [id number] [address] [place] [address], [place] [address] Feb, [facility] [address] [id number] [address] [place] [address], [place] [address] Feb, [facility] [address] [id number] [address] [place] [address], [place] [id number] Jan, [facility] [address] [id number] [address] [place] [address], [place] [address] Jan, [facility] [address] [id number] [address] [place] [address], [place] [address] Jan, [facility] [address] [id number] [address] [place] [address], [place] [address] Jan, [facility] [address] [id number] [address] [place] [address], [place] [address] Nov, [facility] [address] [id number] [address] [place] [address], [place] [address] Mar, [facility] [address] [id number] [address] [place] [address], [place] [address] Mar, [facility] [address] [id number] [address] [place] [address], [place] [address] 30 Feb, 2010 [facility] [address] [id number] [address] [place] [address], [place] [address] 15 Feb, 2010 [facility] [address] [id number] [address] [place] [address], [place] [address] Jan, [facility] [address] [id number] [address] [place] [address], [place] [address] Jan, [facility] [address] [id number] [address] [place] [address], [place] [address] Sep, [facility] [address] [id number] [address] [place] [id number] 16 May, 2009 [facility] [address] [id number] [address] [place] [phone] Apr, [facility] [address] [id number] [address] [place] [id number] Mar, [facility] [address] [id number] [address] [place] [id number] Feb, [facility] [address] [id number] [address] [place] [id number] Feb, [facility] [address] [id number] [address] [place] [phone] Feb, [facility] [address] [id number] [address] [place] [phone] Jan, [facility] [address] [id number] [address] [place] [id number] Jan, [facility] [address] [id number] [address] [place] [phone] Jan, [facility] [address] [id number] [address] [place] [id number] Jan, [facility] [address] [id number] [address] [place] [id number] August, IMMUNIZATIONS No Known Immunizations SOCIAL HISTORY [...] ied 09/2019 Hospitalization History surgery Hospitalization History [facility], in[facility] tient treatment few times for BH
--- OUTSIDE RECORDS SUMMARY | 2019-11-26 06:36 | XMS REPORT | Continuity of Care Document ---
Demographics Preferred Language Unknown Marital Status Unknown Advent Affiliation Unknown Race Unknown Ethnic Group Unknown Author Organization Unknown Address Unknown Phone Unavailable Allergies Active Description Code Type Severity Reaction Onset Reported/Identified Relationship to Patient Clinical Status Yes No Known Drug Allergies [id number] Drug Allergy Unknown N/A 10/29/2019 Medications There is no data. 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 03/21/1037 AL VIEYRA DO Ot Z01.818 ENCOUNTER FOR OTHER PREPROCEDURAL EXAMIN 03/21/1037 AL VIEYRA DO Ot Z20.828 CONTACT W AND EXPOSURE TO OTH VIRAL COMM 03/21/1400 AL VIEYRA DO Ot Z01.818 ENCOUNTER [...] DAMIÁN N 317 MILD MENTAL RETARDATION 01/07/2008 JEET ALANIZ APRN S 298.9 P PSYCHOSIS NOS 01/07/2008 JEET ALANIZ APRN S 311 MO DEPRESSIVE DISORDER NOS 01/07/2008 JEET ALANIZ APRN S 312.30 I IMPULSE CONTROL DISORDER NOS 01/07/2008 JEET ALANIZ APRN S 317 MILD MENTAL RETARDATION 01/07/2008 JEET ALANIZ APRN S 298.9 P PSYCHOSIS NOS 01/07/2008 JEET ALANIZ APRN S 311 MO DEPRESSIVE DISORDER NOS 01/07/2008 JEET ALANIZ APRN S 312.30 I IMPULSE CONTROL DISORDER NOS [...] 317 MILD M ENTAL RETARDATION 01/07/2008 WERDER DO JULISA F 298 .9 P PSYCHOSIS NOS 01/07/2008 EDD DO JULISA F 311 MO DEPRESSIVE DISORDER NOS 01/07/2008 EDD DO, JULISA F 312 .30 I IMPULSE CONTROL DISORDER NOS 01/07/2008 EDD HERRON JULISA F 317 MILD MENTAL RETARDATION 01/07/2008 KATTY INSIDE SALES REPRESENTATIVE, JEET S 298.9 P PSYCHOSIS NOS 01/07/2008 KATTY INSIDE SALES REPRESENTATIVE, JEET S 311 MO DEPRESSIVE DISORDER NOS 01/07/2008 KATTY INSIDE SALES REPRESENTATIVE, JEET S 312.30 I IMPULSE CONTROL DISORDER NOS 01/07/2008 KATTY INSIDE SALES REPRESENTATIVE, JEET S 317 MILD MENTAL RETARDATION 01/07/2008 KATTY INSIDE SALES REPRESENTATIVE, JEET S 298.9 P PSYCHOSIS NOS 01/07/2008 KATTY INSIDE SALES REPRESENTATIVE, JEET S 311 MO DEPRESSIVE DISORDER NOS 01/07/2008 KATTY INSIDE SALES REPRESENTATIVE, JEET S 312.30 I IMPULSE CONTROL DISORDER NOS 01/07/2008 KATTY INSIDE SALES REPRESENTATIVE, JEET S 317 MILD MENTAL RETARDATION 01/07/2008 WHITE DDS, PAYTON D 29 8.9 P PSYCHOSIS NOS 01/07/2008 WHITE DDS, PAYTON D 31 1 MO DEPRESSIVE DISORDER NOS 01/07/2008 WHITE DDS, PAYTON D 312.30 I IMPULSE CONTROL DISORDER NOS 01/07/2008 WHITE DDS, PAYTON D 31 7 MILD MENTAL RETARDATION 01/07/2008 ARCINIEGADAVID IBARRA APRN 298.9 P PSYCHOSIS NOS 01/07/2008 ARCINIEGA INSIDE SALES REPRESENTATIVEDAVID 311 MO DEPRESSIVE DISORDER NOS 01/07/2008 ARCINIEGA INSIDE SALES REPRESENTATIVEDAVID 312.30 I IMPULSE CONTROL DISORDER NOS 01/07/2008 DAVID ARCINIEGA APRN 317 MILD MENTAL RETARDATION 01/07/2008 WHITE DDS, MEERA J 29 8.9 P PSYCHOSIS NOS 01/07/2008 WHITE DDS, MEERA J 31 1 MO DEPRESSIVE DISORDER NOS 01/07/2008 WHITE DDS, MEERA J 312.30 I IMPULSE CONTROL DISORDER NOS 01/07/2008 WHITE DDS, MEERA J 31 7 MILD MENTAL RETARDATION 01/07/2008 KATTY INSIDE SALES REPRESENTATIVE, JEET S 298.9 P PSYCHOSIS NOS 01/07/2008 KATTY INSIDE SALES REPRESENTATIVE, JEET S 311 MO DEPRESSIVE DISORDER NOS 01/07/2008 KATTY INSIDE SALES REPRESENTATIVE, JEET S 312.30 I IMPULSE CONTROL DISORDER NOS 01/07/2008 KATTY INSIDE SALES REPRESENTATIVE, JEET S 317 MILD MENTAL RETARDATION 01/07/2008 KATTY INSIDE SALES REPRESENTATIVE, JEET S 298.9 P PSYCHOSIS NOS 01/07/2008 KATTY INSIDE SALES REPRESENTATIVE, JEET S 311 MO DEPRESSIVE DISORDER NOS 01/07/2008 GUILLERMO ALANIZ APRNNDA S 312.30 I IMPULSE CONTROL DISORDER NOS 01/07/2008 GUILLERMO ALANIZ APRNNDA S 317 MILD MENTAL RETARDATION 01/07/2008 WHITE [...] J 31 7 MILD MENTAL RETARDATION 01/07/2008 DAVID ARCINIEGA APRN 298.9 P PSYCHOSIS NOS 01/07/2008 DEMIAN ARORANDAVID 311 MO DEPRESSIVE DISORDER NOS 01/07/2008 DEMIAN ARORANDAVID 312.30 I IMPULSE CONTROL DISORDER NOS 01/07/2008 DEMIAN ARORANDAVID 317 MILD MENTAL RETARDATION 01/07/2008 GUILLERMO ALANIZ APRNNDA S 298.9 P PSYCHOSIS NOS 01/07/2008 GUILLERMO ALANIZ APRNNDA S 311 MO DEPRESSIVE DISORDER NOS 01/07/2008 GUILLERMO ALANIZ APRNNDA S 312.30 I IMPULSE CONTROL DISORDER NOS 01/07/2008 GUILLERMO ALANIZ APRNNDA S 317 MILD MENTAL RETARDATION 01/07/2008 AURY RUBBER THREAD SPOOLER, VIRIDIANA M 298.9 P PSYCHOSIS NOS 01/07/2008 AURY RUBBER THREAD SPOOLER, VIRIDIANA M 3 11 MO DEPRESSIVE DISORDER NOS 01/07/2008 AURY RUBBER THREAD SPOOLER, VIRIDIANA M 312.30 I IMPULSE CONTROL DISORDER NOS 01/07/2008 AURY RUBBER THREAD SPOOLER, VIRIDIANA M 3 17 MILD MENTAL RETARDATION 01/07/2008 AURY RUBBER THREAD SPOOLER, VIRIDIANA M 298.9 P PSYCHOSIS NOS 01/07/2008 AURY RUBBER THREAD SPOOLER, VIRIIDANA M 3 11 MO DEPRESSIVE DISORDER NOS 01/07/2008 AURY RUBBER THREAD SPOOLER, VIRIDIANA M 312.30 I IMPULSE CONTROL DISORDER NOS 01/07/2008 AURY RUBBER THREAD SPOOLER, VIRIDIANA M 3 17 MILD MENTAL RETARDATION 02/03/2008 250.00 CAROLE BETES MELLITUS 02/03/2008 530.81 Gerd 02/03/2008 250.00 CAROLE BETES MELLITUS 02/03/2008 530.81 Gerd 02/03/2008 CASTRO ZAPATAS, DAMIÁN N 250.00 DIABETES MELLITUS 02/03/2008 NICKHALU DDS, DAMIÁN N 530.81 Gerd 02/03/2008 KEVIN ALANIZ APRNA S 250.00 DIABETES MELLITUS 02/03/2008 GUILLERMO ALANIZ APRNNDA S 530.81 Gerd 02/03/2008 GUILLERMO ALANIZ APRNNDA S 250.00 DIABETES MELLITUS 02/03/2008 GUILLERMO ALANIZ APRNNDA S 530.81 Gerd 02/03/2008 250.00 CAROLE BETES MELLITUS 02/03/2008 530.81 Gerd 02/03/2008 250.00 CAROLE BETES MELLITUS 02/03/2008 530.81 Gerd 02/03/2008 250.00 CAROLE BETES MELLITUS 02/03/2008 530.81 Gerd 02/03/2008 250.00 CAROLE BETES MELLITUS 02/03/2008 530.81 Gerd 02/03/2008 250.00 CAROLE BETES MELLITUS 02/03/2008 530.81 Gerd 02/03/2008 250.00 CAROLE BETES MELLITUS 02/03/2008 530.81 Gerd 02/03/2008 JULISA PUGA DO 250 .00 DIABETES MELLITUS 02/03/2008 JULISA PUGA DO F 530 .81 Gerd 02/03/2008 GUILLERMO ALANIZ APRNNDA S 250.00 DIABETES MELLITUS 02/03/2008 GUILLERMO ALANIZ APRNNDA S 530.81 Gerd 02/03/2008 GUILLERMO ALANIZ APRNNDA S 250.00 DIABETES MELLITUS 02/03/2008 GUILLERMO ALANIZ APRNNDA S 530.81 Gerd 02/03/2008 WHITE DDS, PAYTON D 250.00 DIABETES MELLITUS 02/03/2008 PAT ZAPATAS, PAYTON D 530.81 Gerd 02/03/2008 DAVID ARCINIEGA APRN 250.00 DIABETES MELLITUS 02/03/2008 DAVID ARCINIEGA APRN 530.81 Gerd 02/03/2008 PAT ZAPATAS, MEERA J 250.00 DIABETES MELLITUS 02/03/2008 WHITE JODISMEERA J 530.81 Gerd 02/03/2008 KATTY INSIDE SALES REPRESENTATIVE, JEET S 250.00 DIABETES MELLITUS 02/03/2008 KATTY HOLLAND, JEET S 530.81 Gerd 02/03/2008 KATTY INSIDE SALES REPRESENTATIVE, JEET S 250.00 DIABETES MELLITUS 02/03/2008 KATTY INSIDE SALES REPRESENTATIVE, JEET S 530.81 Gerd 02/03/2008 WHITE DDS, MEERA J 250.00 DIABETES MELLITUS 02/03/2008 WHITE DDS, MEERA J 530.81 Gerd 02/03/2008 WHITE DDS, MEERA J 250.00 DIABETES MELLITUS 02/03/2008 WHITE DDS, MEERA J 530.81 Gerd 02/03/2008 ARCINIEGA INSIDE SALES REPRESENTATIVE, DAVID PIERRE 250.00 DIABETES MELLITUS 02/03/2008 ARCINIEGA INSIDE SALES REPRESENTATIVE, DAVID PIERRE 530.81 Gerd 02/03/2008 KATTY HOLLAND, JEET S 250.00 DIABETES MELLITUS 02/03/2008 KATTYSHAILESH HOLLAND, JEET S 530.81 Gerd 02/03/2008 VIRIDIANA CEBALLOS M 250.00 DIABETES MELLITUS 02/03/2008 AURY KAUR, VIRIDIANA M 530.81 Gerd 02/03/2008 AURY KAUR, VIRIDIANA M 250.00 DIABETES MELLITUS 02/03/2008 AURY KAUR, VIRIDIANA M 530.81 Gerd 02/12/2008 272.0 HYPERCHOLESTEROLEMIA PURE 02/12/2008 V58.69 CRISTIAN G-TERM (CURRENT) USE OF OTHER MEDICATIONS 02/12/2008 272.0 HYPERCHOLESTEROLEMIA PURE 02/12/2008 V58.69 CRISTIAN G-TERM (CURRENT) USE OF OTHER MEDICATIONS 02/12/2008 MUOGHALU DDS, DAMIÁN N 272.0 HYPERCHOLESTEROLEMIA PURE 02/12/2008 MUOGHALU DDS, DAMIÁN N V58.69 LONG-TERM (CURRENT) USE OF OTHER MEDICATIONS 02/12/2008 KATTY HOLLAND, JEET S 272.0 HYPERCHOLESTEROLEMIA PURE 02/12/2008 KATTY [...] DO F 272 .0 HYPERCHOLESTEROLEMIA PURE 02/12/2008 JULISA PUGA DO F V58 .69 LONG-TERM (CURRENT) USE OF OTHER MEDICATIONS 02/12/2008 JEET ALANIZ APRN S 272.0 HYPERCHOLESTEROLEMIA PURE 02/12/2008 KEVIN ALANIZ APRNA S V58.69 LONG-TERM (CURRENT) USE OF OTHER MEDICATIONS 02/12/2008 KEVIN ALANIZ APRNA S 272.0 HYPERCHOLESTEROLEMIA PURE 02/12/2008 KEVIN ALANIZ APRNA S V58.69 LONG-TERM (CURRENT) USE OF OTHER MEDICATIONS 02/12/2008 WHITE DDS, PAYTON D 27 2.0 HYPERCHOLESTEROLEMIA PURE 02/12/2008 WHITE JODISPAYTON D V58.69 LONG-TERM (CURRENT) USE OF OTHER MEDICATIONS 02/12/2008 DAVID ARCINIEGA APRN 272.0 HYPERCHOLESTEROLEMIA PURE 02/12/2008 DAVID ARCINIEGA APRN V58.69 LONG-TERM (CURRENT) USE OF OTHER MEDICATIONS 02/12/2008 WHITE DDS, MEERA J 27 2.0 HYPERCHOLESTEROLEMIA PURE 02/12/2008 WHITE DDSMEERA J V58.69 LONG-TERM (CURRENT) USE OF OTHER [...] (CURRENT) USE OF OTHER MEDICATIONS 02/12/2008 ARCINIEGA APRN, DAVID PIERRE 272.0 HYPERCHOLESTEROLEMIA PURE 02/12/2008 ARCINIEGA INSIDE SALES REPRESENTATIVE, DAVID PIERRE V58.69 LONG-TERM (CURRENT) USE OF OTHER MEDICATIONS 02/12/2008 KEVIN ALANIZ APRNA S 272.0 HYPERCHOLESTEROLEMIA PURE 02/12/2008 GUILLERMO ALANIZ APRNNDA S V58.69 LONG-TERM (CURRENT) USE OF OTHER MEDICATIONS 02/12/2008 VIRIDIANA CEABLLOS M 272.0 HYPERCHOLESTEROLEMIA PURE 02/12/2008 VIRIDIANA CEBALLOS M V58.69 LONG-TERM (CURRENT) USE OF OTHER MEDICATIONS 02/12/2008 VIRIDIANA CEBALLOS M 272.0 HYPERCHOLESTEROLEMIA PURE 02/12/2008 VIRIDIANA CEBALLOS M V58.69 LONG-TERM (CURRENT) USE OF OTHER MEDICATIONS 06/08/2008 250.02 Carole betes Ii Uncontrolled 06/08/2008 788.30 INC ONTINENCE ENURESOS/URINARY 06/08/2008 250.02 Carole betes Ii Uncontrolled 06/08/2008 788.30 INC ONTINENCE ENURESOS/URINARY 06/08/2008 MUOGHALU DDS, DAMIÁN N 250.02 Diabetes Ii Uncontrolled 06/08/2008 MUOGHALU DDS, DAMIÁN N 788.30 INCONTINENCE ENURESOS/URINARY 06/08/2008 KEVIN ALANIZ APRNA S 250.02 Diabetes Ii Uncontrolled 06/08/2008 KEVIN ALANIZ APRNA S 788.30 INCONTINENCE ENURESOS/URINARY 06/08/2008 KEVIN ALANIZ APRNA S 250.02 Diabetes Ii Uncontrolled 06/08/2008 KEVIN ALANIZ APRNA S 788.30 INCONTINENCE ENURESOS/URINARY 06/08/2008 250.02 Carole betes [...] Uncontrolled 06/08/2008 788.30 INC ONTINENCE ENURESOS/URINARY 06/08/2008 JULISA PUGA DO 250 .02 Diabetes Ii Uncontrolled 06/08/2008 JULISA PUGA DO 788 .30 INCONTINENCE ENURESOS/URINARY 06/08/2008 JEET ALANIZ APRN S 250.02 Diabetes Ii Uncontrolled 06/08/2008 KEVIN ALANIZ APRNA S 788.30 INCONTINENCE ENURESOS/URINARY 06/08/2008 JEET ALANIZ APRN S 250.02 Diabetes Ii Uncontrolled 06/08/2008 KEVIN ALANIZ APRNA S 788.30 INCONTINENCE ENURESOS/URINARY 06/08/2008 PAYTON STEWART DDS 250.02 Diabetes Ii Uncontrolled 06/08/2008 PAYTON STEWART DDS 788.30 INCONTINENCE ENURESOS/URINARY 06/08/2008 DAVID ARCINIEGA APRN 250.02 Diabetes Ii Uncontrolled 06/08/2008 DAVID ARCINIEGA APRN 788.30 INCONTINENCE ENURESOS/URINARY 06/08/2008 MEERA STEWART DDS 250.02 Diabetes Ii Uncontrolled 06/08/2008 MEERA STEWART DDS 788.30 INCONTINENCE ENURESOS/URINARY 06/08/2008 JEET ALANIZ APRN S 250.02 Diabetes Ii Uncontrolled 06/08/2008 JEET ALANIZ APRN S 788.30 INCONTINENCE ENURESOS/URINARY 06/08/2008 KEVIN ALANIZ APRNA S 250.02 Diabetes Ii Uncontrolled 06/08/2008 JEET ALANIZ APRN S 788.30 INCONTINENCE ENURESOS/URINARY 06/08/2008 WHITE DDS, MEERA J 250.02 Diabetes Ii Uncontrolled 06/08/2008 WHITE DDS, MEERA J 788.30 INCONTINENCE ENURESOS/URINARY 06/08/2008 WHITE DDS, MEERA J 250.02 Diabetes Ii Uncontrolled 06/08/2008 WHITE DDS, MEERA J 788.30 INCONTINENCE ENURESOS/URINARY 06/08/2008 ARCINIEGA INSIDE SALES REPRESENTATIVE, DAVID PIERRE 250.02 Diabetes Ii Uncontrolled 06/08/2008 ARCINIEGA INSIDE SALES REPRESENTATIVE, DAVID PIERRE 788.30 INCONTINENCE ENURESOS/URINARY 06/08/2008 KEVIN ALANIZ APRNA S 250.02 Diabetes Ii Uncontrolled 06/08/2008 KEVIN ALANIZ APRNA S 788.30 INCONTINENCE ENURESOS/URINARY 06/08/2008 VIRIDIANA CEBALLOS M 250.02 Diabetes Ii Uncontrolled 06/08/2008 VIRIDIANA CEBALLOS M 788.30 INCONTINENCE ENURESOS/URINARY 06/08/2008 VIRIDIANA CEBALLOS M 250.02 Diabetes Ii Uncontrolled 06/08/2008 VIRIDIANA CEBALLOS M 788.30 INCONTINENCE ENURESOS/URINARY 07/07/2008 307.6 EI E NURESIS 07/07/2008 315.31 EXP RESSIVE LANGUAGE DISORDER 07/07/2008 307.6 EI E NURESIS 07/07/2008 315.31 EXP RESSIVE LANGUAGE DISORDER 07/07/2008 MUOGHALU DDS, DAMIÁN N 307.6 EI ENURESIS 07/07/2008 MUOGHALU DDS, DAMIÁN N 315.31 EXPRESSIVE LANGUAGE DISORDER 07/07/2008 JEET ALANIZ APRN S 307.6 EI ENURESIS 07/07/2008 JEET ALANIZ APRN S 315.31 EXPRESSIVE LANGUAGE DISORDER 07/07/2008 KEVIN ALANIZ APRNA S 307.6 EI ENURESIS 07/07/2008 KEVIN ALANIZ APRNA S 315.31 EXPRESSIVE LANGUAGE DISORDER 07/07/2008 307.6 [...] 315.31 EXP RESSIVE LANGUAGE DISORDER 07/07/2008 WERDER DO, JULISA F 307 .6 EI ENURESIS 07/07/2008 ESSENCEDER DO, JULISA F 315 .31 EXPRESSIVE LANGUAGE DISORDER 07/07/2008 GUILLERMO ALANIZ APRNNDA S 307.6 EI ENURESIS 07/07/2008 GUILLERMO ALANIZ APRNNDA S 315.31 EXPRESSIVE LANGUAGE DISORDER 07/07/2008 GUILLERMO ALANIZ APRNNDA S 307.6 EI ENURESIS 07/07/2008 GUILLERMO ALANIZ APRNNDA S 315.31 EXPRESSIVE LANGUAGE DISORDER 07/07/2008 WHITE DDS, PAYTON D 30 7.6 EI ENURESIS 07/07/2008 WHITE DDS, PAYTON D 315.31 EXPRESSIVE LANGUAGE DISORDER 07/07/2008 ARCINIEGA APRNDAVID 307.6 EI ENURESIS 07/07/2008 ARCINIEGA INSIDE SALES REPRESENTATIVEDAVID 315.31 EXPRESSIVE LANGUAGE DISORDER 07/07/2008 WHITE DDS, MEERA J 30 7.6 EI ENURESIS 07/07/2008 WHITE DDS, MEERA J 315.31 EXPRESSIVE LANGUAGE DISORDER 07/07/2008 GUILLERMO ALANIZ APRNNDA S 307.6 EI ENURESIS 07/07/2008 GUILLERMO ALANIZ APRNNDA S 315.31 EXPRESSIVE LANGUAGE DISORDER 07/07/2008 GUILLERMO ALANIZ APRNNDA S 307.6 EI ENURESIS 07/07/2008 KATTY HOLLAND JEET S 315.31 EXPRESSIVE LANGUAGE DISORDER 07/07/2008 WHITE DDS, MEERA J 30 7.6 EI ENURESIS 07/07/2008 WHITE DDS, MEERA J 315.31 EXPRESSIVE LANGUAGE DISORDER 07/07/2008 WHITE DDS, MEERA J 30 7.6 EI ENURESIS 07/07/2008 WHITE DDS, MEERA J 315.31 EXPRESSIVE LANGUAGE DISORDER 07/07/2008 ARCINIEGA DAVID HOLLAND 307.6 EI ENURESIS 07/07/2008 ARCINIEGA INSIDE SALES REPRESENTATIVEDAVID 315.31 EXPRESSIVE LANGUAGE DISORDER 07/07/2008 KATTY ARORAN, JEET S 307.6 EI ENURESIS 07/07/2008 KATTY INSIDE SALES REPRESENTATIVE, JEET S 315.31 EXPRESSIVE LANGUAGE DISORDER 07/07/2008 AURY RUBBER THREAD SPOOLER, VIRIDIANA M 307.6 EI ENURESIS 07/07/2008 AURY RUBBER THREAD SPOOLER, VIRIDIANA M 315.31 EXPRESSIVE LANGUAGE DISORDER 07/07/2008 AURY RUBBER THREAD SPOOLER, VIRIDIANA M 307.6 EI ENURESIS 07/07/2008 AURY RUBBER THREAD SPOOLER, VIRIDIANA M 315.31 EXPRESSIVE LANGUAGE DISORDER 08/10/2008 465.9 Acut e Upper Respiratory Infections Of Unspecified Site 08/10/2008 465.9 Acut e Upper Respiratory Infections Of Unspecified Site 08/10/2008 CASTRO ZAPATAS, DAMIÁN Villalobos 465.9 Acute Upper Respiratory Infections Of Unspecified [...] Respiratory Infections Of Unspecified Site 08/10/2008 KATTY HOLLAND JEET S 465.9 Acute Upper Respiratory Infections Of Unspecified Site 08/10/2008 KATTY HOLLAND, JEET S 465.9 Acute Upper Respiratory Infections Of Unspecified Site 08/10/2008 PAT DDS, PAYTON Faye 46 5.9 Acute Upper Respiratory Infections Of [...] Upper Respiratory Infections Of Unspecified Site 08/10/2008 KATTYGUILLERMO CASH APRNNDA S 465.9 Acute Upper Respiratory Infections Of Unspecified Site 08/10/2008 VIRIDIANA CEBALLOS M 465.9 Acute Upper Respiratory Infections Of Unspecified Site 08/10/2008 AURY RUBBER THREAD SPOOLER, VIRIDIANA M 465.9 Acute Upper Respiratory Infections [...] ADVERSE EFFECTS IN THERAPEUTIC USE 02/10/2009 MUOGHALU DDS, DAMIÁN N 995.20 UNSPECIFIED ADVERSE EFFECT OF UNSPECIFIE D DRUG, MEDICINAL AND BIOLOGICAL SUBSTANCE, NOT ELSEWHERE CLASSIFIED 02/10/2009 MUOGHALU DDS, DAMIÁN N E939.9 UNSPECIFIED PSYCHOTROPIC AGENTS CAUSING ADVERSE [...] AND BIOLOGICAL SUBSTANCE, NOT ELSEWHERE CLASSIFIED 02/10/2009 KATTY INSIDE SALES REPRESENTATIVE, JEET S E939.9 UNSPECIFIED PSYCHOTROPIC AGENTS CAUSING ADVERSE EFFECTS IN THERAPEUTIC USE 02/10/2009 WHITE DDS, PAYTON D 995.20 UNSPECIFIED ADVERSE EFFECT OF UNSPECIFIE D DRUG, MEDICINAL AND BIOLOGICAL SUBSTANCE, NOT ELSEWHERE CLASSIFIED 02/10/2009 WHITE DDS, PAYTON D E939.9 UNSPECIFIED PSYCHOTROPIC AGENTS CAUSING ADVERSE EFFECTS IN THERAPEUTIC USE 02/10/2009 DEMIAN HOLLAND DAVID IGNACIO 995.20 UNSPECIFIED ADVERSE EFFECT OF UNSPECIFIE D DRUG, MEDICINAL AND BIOLOGICAL SUBSTANCE, NOT ELSEWHERE CLASSIFIED 02/10/2009 DEMIAN HOLLAND DAVID IGNACIO E939.9 UNSPECIFIED PSYCHOTROPIC AGENTS CAUSING ADVERSE EFFECTS IN THERAPEUTIC USE 02/10/2009 WHITE DDS, MEERA J 995.20 UNSPECIFIED ADVERSE EFFECT [...] AND BIOLOGICAL SUBSTANCE, NOT ELSEWHERE CLASSIFIED 02/10/2009 WHITE DDS, MEERA J E939.9 UNSPECIFIED PSYCHOTROPIC AGENTS CAUSING ADVERSE EFFECTS IN THERAPEUTIC USE 02/10/2009 WHITE DDS, MEERA J 995.20 UNSPECIFIED ADVERSE EFFECT OF UNSPECIFIE D DRUG, MEDICINAL AND BIOLOGICAL SUBSTANCE, NOT ELSEWHERE CLASSIFIED 02/10/2009 PAT DDS, MEERA J E939.9 UNSPECIFIED PSYCHOTROPIC AGENTS CAUSING ADVERSE EFFECTS IN THERAPEUTIC USE 02/10/2009 DEMIAN HOLLAND DAVID IGNACIO 995.20 UNSPECIFIED ADVERSE EFFECT OF UNSPECIFIE D DRUG, MEDICINAL AND BIOLOGICAL SUBSTANCE, NOT ELSEWHERE CLASSIFIED 02/10/2009 DAVID ACRINIEGA APRNH E939.9 UNSPECIFIED PSYCHOTROPIC AGENTS CAUSING ADVERSE EFFECTS IN THERAPEUTIC USE 02/10/2009 JEET ALANIZ APRN S 995.20 UNSPECIFIED ADVERSE EFFECT OF UNSPECIFIE D DRUG, MEDICINAL AND BIOLOGICAL SUBSTANCE, NOT ELSEWHERE CLASSIFIED 02/10/2009 JEET ALANIZ APRN S E939.9 UNSPECIFIED PSYCHOTROPIC AGENTS CAUSING ADVERSE EFFECTS IN THERAPEUTIC USE 02/10/2009 VIRIDIANA CEBALLOS 995.20 UNSPECIFIED ADVERSE EFFECT OF UNSPECIFIE D DRUG, MEDICINAL AND BIOLOGICAL SUBSTANCE, NOT ELSEWHERE CLASSIFIED 02/10/2009 VIRIDIANA CEBALLOS E939.9 UNSPECIFIED PSYCHOTROPIC AGENTS CAUSING ADVERSE EFFECTS IN THERAPEUTIC USE 02/10/2009 VIRIDIANA CEBALLOS 995.20 UNSPECIFIED ADVERSE EFFECT OF UNSPECIFIE D DRUG, MEDICINAL AND BIOLOGICAL SUBSTANCE, NOT ELSEWHERE CLASSIFIED 02/10/2009 VIRIDIANA CEBALLOS E939.9 UNSPECIFIED PSYCHOTROPIC AGENTS CAUSING ADVERSE EFFECTS IN THERAPEUTIC USE 05/10/2009 296.90 MO MOOD DIS NOS 05/10/2009 789.07 Abd ominal Pain, Generalized 05/10/2009 296.90 MO MOOD DIS NOS 05/10/2009 789.07 Abd ominal Pain, Generalized 05/10/2009 MUOGHALU DDS, DAMIÁN N 296.90 MO MOOD DIS NOS 05/10/2009 MUOGHALU DDS, DAMIÁN N 789.07 Abdominal Pain, Generalized 05/10/2009 JEET ALANIZ APRN S 296.90 MO MOOD DIS NOS 05/10/2009 JEET ALANIZ APRN S 789.07 Abdominal Pain, Generalized 05/10/2009 KEVIN ALANIZ APRNA S 296.90 MO MOOD DIS NOS 05/10/2009 KEVIN ALANIZ APRNA S 789.07 Abdominal Pain, Generalized 05/10/2009 296.90 [...] 05/10/2009 789.07 Abd ominal Pain, Generalized 05/10/2009 JULISA PUGA DO F 296 .90 MO MOOD DIS NOS 05/10/2009 EDD HERRON, JULISA F 789 .07 Abdominal Pain, Generalized 05/10/2009 KATTY INSIDE SALES REPRESENTATIVE, JEET S 296.90 MO MOOD DIS NOS 05/10/2009 KATTY INSIDE SALES REPRESENTATIVE, JEET S 789.07 Abdominal Pain, Generalized 05/10/2009 KATTY INSIDE SALES REPRESENTATIVE, JEET S 296.90 MO MOOD DIS NOS 05/10/2009 KATTY INSIDE SALES REPRESENTATIVE, JEET S 789.07 Abdominal Pain, Generalized 05/10/2009 WHITE DDS, PAYTON D 296.90 MO MOOD DIS NOS 05/10/2009 WHITE DDS, PAYTON D 789.07 Abdominal Pain, Generalized 05/10/2009 ARCINIEGA INSIDE SALES REPRESENTATIVE DAVID IGNACIO 296.90 MO MOOD DIS NOS 05/10/2009 ARCINIEGA INSIDE SALES REPRESENTATIVE DAVID IGNACIO 789.07 Abdominal Pain, Generalized 05/10/2009 WHITE DDS, MEERA J 296.90 MO MOOD DIS NOS 05/10/2009 WHITE DDS, MEERA J 789.07 Abdominal Pain, Generalized 05/10/2009 KATTY ARORAN, JEET S 296.90 MO MOOD DIS NOS 05/10/2009 KATTY ARORAN, JEET S 789.07 Abdominal Pain, Generalized 05/10/2009 KATTY INSIDE SALES REPRESENTATIVE, JEET S 296.90 MO MOOD DIS NOS 05/10/2009 KATTY INSIDE SALES REPRESENTATIVE, JEET S 789.07 Abdominal Pain, Generalized 05/10/2009 WHITE DDS, MEERA J 296.90 MO MOOD DIS NOS 05/10/2009 WHITE DDS, MEERA J 789.07 Abdominal Pain, Generalized 05/10/2009 WHITE DDS, MEERA J 296.90 MO MOOD DIS NOS 05/10/2009 WHITE DDS, MEERA J 789.07 Abdominal Pain, Generalized 05/10/2009 ARCINIEGA APRN, DAVID DANIELSONH 296.90 MO MOOD DIS NOS 05/10/2009 DEMIAN HOLLAND DAVID PIERRE 789.07 Abdominal Pain, Generalized 05/10/2009 KATTY INSIDE SALES REPRESENTATIVE, JEET S 296.90 MO MOOD DIS NOS 05/10/2009 KATTY INSIDE SALES REPRESENTATIVE, JEET S 789.07 Abdominal Pain, Generalized 05/10/2009 AURY RUBBER THREAD SPOOLER, VIRIDIANA M 296.90 MO MOOD DIS NOS 05/10/2009 AURY RUBBER THREAD SPOOLER, VIRIDIANA M 789.07 Abdominal Pain, Generalized 05/10/2009 AURY RUBBER THREAD SPOOLER, VIRIDIANA M 296.90 MO MOOD DIS NOS 05/10/2009 AURY RUBBER THREAD SPOOLER, VIRIDIANA M 789.07 Abdominal Pain, Generalized 10/04/2009 786.2 cough 10/04/2009 786.2 cough 10/04/2009 DAMIÁN ERAZO DDS N 786.2 cough 10/04/2009 KATTY INSIDE SALES REPRESENTATIVE, JEET S 786.2 cough 10/04/2009 KATTY INSIDE SALES REPRESENTATIVE, JEET S 786.2 cough 10/04/2009 786.2 cough 10/04/2009 786.2 cough 10/04/2009 786.2 cough 10/04/2009 786.2 cough 10/04/2009 786.2 cough 10/04/2009 786.2 cough 10/04/2009 JULISA PUGA DO 786 .2 cough 10/04/2009 KATTY INSIDE SALES REPRESENTATIVE, JEET S 786.2 cough 10/04/2009 KATTY INSIDE SALES REPRESENTATIVE, JEET S 786.2 cough 10/04/2009 WHITE DDS, PAYTON D 78 6.2 cough 10/04/2009 DEMIAN HOLLAND DAVID IGNACIO 786.2 cough 10/04/2009 WHITE ESTRELLITA PEÑAON J 78 6.2 cough 10/04/2009 KATTY INSIDE SALES REPRESENTATIVE, JEET S 786.2 cough 10/04/2009 KATTY INSIDE SALES REPRESENTATIVE, JEET S 786.2 cough 10/04/2009 WHITE ESTRELLITA PEÑAON J 78 6.2 cough 10/04/2009 WHITE DDS, MEERA J 78 6.2 cough 10/04/2009 DEMIAN HOLLAND DAVID IGNACIO 786.2 cough 10/04/2009 KATTY INSIDE SALES REPRESENTATIVE, JEET S 786.2 cough 10/04/2009 VIRIDIANA CEBALLOS [...] (3 YRS AND ABOVE, IM) 02/28/2011 KATTY INSIDE SALES REPRESENTATIVE, JEET S 427.9 Cardiac Dysrhythmia Unspecified 02/28/2011 KATTY INSIDE SALES REPRESENTATIVE, JEET S 786.50 Unspecified Chest Pain 02/28/2011 KATTY INSIDE SALES REPRESENTATIVE, JEET S V04.81 FLU DX (3 YRS AND ABOVE, IM) 02/28/2011 KATTY INSIDE SALES REPRESENTATIVE, JEET S 427.9 Cardiac Dysrhythmia Unspecified 02/28/2011 KATTY INSIDE SALES REPRESENTATIVE, JEET S 786.50 Unspecified Chest Pain 02/28/2011 KATTY INSIDE SALES REPRESENTATIVE, JEET S V04.81 FLU DX (3 YRS [...] DX (3 YRS AND ABOVE, IM) 02/28/2011 EDD DO JULISA F 427 .9 Cardiac Dysrhythmia Unspecified 02/28/2011 ESSENCESARAH DO JULISA F 786 .50 Unspecified Chest Pain 02/28/2011 EDD DO JULISA F V04 .81 FLU DX (3 YRS AND ABOVE, IM) 02/28/2011 KATTY HOLLAND JEET S 427.9 Cardiac Dysrhythmia Unspecified 02/28/2011 KATTY HOLLAND JEET S 786.50 Unspecified Chest Pain 02/28/2011 KATTY ARORAN JEET S V04.81 FLU DX (3 YRS AND ABOVE, IM) 02/28/2011 KATTY HOLLAND JEET S 427.9 Cardiac Dysrhythmia Unspecified 02/28/2011 KATTY INSIDE SALES REPRESENTATIVE, JEET S 786.50 Unspecified Chest Pain 02/28/2011 KATTY INSIDE SALES REPRESENTATIVE, JEET S V04.81 FLU DX (3 YRS AND ABOVE, IM) 02/28/2011 WHITE DDS, PAYTON D 42 7.9 Cardiac Dysrhythmia Unspecified 02/28/2011 WHITE DDS, PAYTON D 786.50 Unspecified Chest Pain 02/28/2011 WHITE DDS, PAYTON D V04.81 FLU DX (3 YRS AND ABOVE, IM) 02/28/2011 DAVID ARCINIEGA APRN 427.9 Cardiac Dysrhythmia Unspecified 02/28/2011 DEMIAN HOLLAND DAVID IGNACIO 786.50 Unspecified Chest Pain 02/28/2011 DEMIAN HOLLAND DAVID PIERRE V04.81 FLU DX (3 YRS AND ABOVE, IM) 02/28/2011 PAT ZAPATAS, MEERA J 42 7.9 Cardiac Dysrhythmia Unspecified 02/28/2011 WHITE DDS, MEERA J 786.50 Unspecified Chest Pain 02/28/2011 WHITE DDS, MEERA J V04.81 FLU DX (3 YRS AND ABOVE, IM) 02/28/2011 KATTY INSIDE SALES REPRESENTATIVE, JEET S 427.9 Cardiac Dysrhythmia Unspecified 02/28/2011 KATTY INSIDE SALES REPRESENTATIVE, JEET S 786.50 Unspecified Chest Pain 02/28/2011 KATTY INSIDE SALES REPRESENTATIVE, JEET S V04.81 FLU DX (3 YRS AND ABOVE, IM) 02/28/2011 KATTY INSIDE SALES REPRESENTATIVE, JEET S 427.9 Cardiac Dysrhythmia Unspecified 02/28/2011 KATTY INSIDE SALES REPRESENTATIVE, JEET S 786.50 Unspecified Chest Pain 02/28/2011 KATTY INSIDE SALES REPRESENTATIVE, JEET S V04.81 FLU DX (3 YRS [...] DX (3 YRS AND ABOVE, IM) 02/28/2011 ARCINIEAG INSIDE SALES REPRESENTATIVEDAVID 427.9 Cardiac Dysrhythmia Unspecified 02/28/2011 ARCINIEGA INSIDE SALES REPRESENTATIVE, DAVID PIERRE 786.50 Unspecified Chest Pain 02/28/2011 ARCINIEGA INSIDE SALES REPRESENTATIVE, DAVID IGNACIO V04.81 FLU DX (3 YRS AND ABOVE, IM) 02/28/2011 KATTY INSIDE SALES REPRESENTATIVE, JEET S 427.9 Cardiac Dysrhythmia Unspecified 02/28/2011 KATTY INSIDE SALES REPRESENTATIVE, JEET S 786.50 Unspecified Chest Pain 02/28/2011 KATTY INSIDE SALES REPRESENTATIVE, JEET S V04.81 FLU DX (3 YRS AND ABOVE, IM) 02/28/2011 VIRIDIANA CEBALLOS 427.9 Cardiac Dysrhythmia Unspecified 02/28/2011 VIRIDIANA CEBALLOS M 786.50 Unspecified Chest Pain 02/28/2011 VIRIDIANA CEBALLOS V04.81 FLU DX (3 YRS AND ABOVE, IM) 02/28/2011 VIRIDIANA CEBALLOS M 427.9 Cardiac Dysrhythmia Unspecified 02/28/2011 VIRIDIANA CEBALLOS M 786.50 Unspecified Chest Pain 02/28/2011 VIRIDIANA CEBALLOS V04.81 FLU DX (3 YRS AND ABOVE, IM) 04/28/2012 JEET ALANIZ APRN 535.50 UNSPECIFIED GASTRITIS [...] S V70.0 EXAM - ROUTINE H&P 04/28/2012 KEVIN ALANIZ APRNA S 535.50 UNSPECIFIED GASTRITIS AND GASTRODUODENITIS (WITHOUT HE MORRHAGE) 04/28/2012 KEVIN ALANIZ APRNA S V70.0 EXAM - ROUTINE H&P 04/28/2012 PAT DDSPAYTON 535.50 UNSPECIFIED GASTRITIS AND GASTRODUODENITIS (WITHOUT HE MORRHAGE) 04/28/2012 PAT ZAPATASPAYTON V7 0.0 EXAM - ROUTINE H&P 04/28/2012 DEMIAN HOLLAND DAVID PIERRE 535.50 UNSPECIFIED GASTRITIS AND GASTRODUODENITIS (WITHOUT HE MORRHAGE) 04/28/2012 DEMIAN HOLLANDDAVID V70.0 EXAM - ROUTINE H&P 04/28/2012 WHITE DDS, MEERA J 535.50 UNSPECIFIED GASTRITIS AND GASTRODUODENITIS (WITHOUT HE MORRHAGE) 04/28/2012 PAT DDS, MEERA J V7 0.0 EXAM - ROUTINE H&P 04/28/2012 KEVIN ALANIZ APRNA S 535.50 UNSPECIFIED GASTRITIS AND GASTRODUODENITIS (WITHOUT HE MORRHAGE) 04/28/2012 KEVIN ALANIZ APRNA S V70.0 EXAM - ROUTINE H&P 04/28/2012 JEET ALANIZ APRN S 535.50 UNSPECIFIED GASTRITIS AND GASTRODUODENITIS (WITHOUT HE MORRHAGE) 04/28/2012 KEVIN ALANIZ APRNA S V70.0 EXAM - ROUTINE H&P 04/28/2012 WHITE DDS, MEERA J 535.50 UNSPECIFIED GASTRITIS AND GASTRODUODENITIS (WITHOUT HE MORRHAGE) 04/28/2012 WHITE DDS, MEERA J V7 0.0 EXAM - ROUTINE H&P 04/28/2012 WHITE DDS, MEERA J 535.50 UNSPECIFIED GASTRITIS AND GASTRODUODENITIS (WITHOUT HE MORRHAGE) 04/28/2012 WHITE DDS, MEERA J V7 0.0 EXAM - ROUTINE H&P 04/28/2012 DEMIAN HOLLAND DAVID IGNACIO 535.50 UNSPECIFIED GASTRITIS AND GASTRODUODENITIS (WITHOUT HE MORRHAGE) 04/28/2012 DEMIAN HOLLAND DAVID PIERRE V70.0 EXAM - ROUTINE H&P 04/28/2012 JEET ALANIZ APRN S 535.50 UNSPECIFIED GASTRITIS AND GASTRODUODENITIS (WITHOUT HE MORRHAGE) 04/28/2012 KEVIN ALANIZ APRNA S V70.0 EXAM - ROUTINE H&P 04/28/2012 VIRIDIANA CEBALLOS M 535.50 UNSPECIFIED GASTRITIS AND GASTRODUODENITIS (WITHOUT HE MORRHAGE) 04/28/2012 VIRIDIANA CEBALLOS M V70.0 EXAM - ROUTINE H&P 04/28/2012 VIRIDIANA CEBALLOS M 535.50 UNSPECIFIED GASTRITIS AND GASTRODUODENITIS (WITHOUT HE MORRHAGE) 04/28/2012 VIRIDIANA CEBALLOS M V70.0 EXAM - ROUTINE H&P 08/10/2013 GUILLERMO ALANIZ APRNNDA S 327.23 OBSTRUCTIVE SLEEP APNEA (ADULT) (PEDIATRIC) 08/10/2013 GUILLERMO ALANIZ APRNNDA S 355.9 MONONEURITIS OF UNSPECIFIED SITE 08/10/2013 GUILLERMO ALANIZ APRNNDA S 327.23 OBSTRUCTIVE SLEEP APNEA (ADULT) (PEDIATRIC) 08/10/2013 GUILLERMO ALANIZ APRNNDA S 355.9 MONONEURITIS OF UNSPECIFIED SITE 08/10/2013 WHITE DDS, [...] APRN 355.9 MONONEURITIS OF UNSPECIFIED SITE 08/10/2013 JEET ALANIZ APRN S 327.23 OBSTRUCTIVE SLEEP APNEA (ADULT) (PEDIATRIC) 08/10/2013 JEET ALANIZ APRN S 355.9 MONONEURITIS OF UNSPECIFIED SITE 08/10/2013 VIRIDIANA CEBALLOS M 327.23 OBSTRUCTIVE SLEEP APNEA (ADULT) (PEDIATRIC) 08/10/2013 VIRIDIANA CEBALLOS M 355.9 MONONEURITIS OF UNSPECIFIED SITE 08/10/2013 VIRIDIANA CEBALLOS M 327.23 OBSTRUCTIVE SLEEP APNEA (ADULT) (PEDIATRIC) 08/10/2013 VIRIDIANA CEBALLOS M 355.9 MONONEURITIS OF UNSPECIFIED SITE 08/12/2014 VIRIDIANA CEBALLOS M 788.1 DYSURIA 09/25/2019 AL VIEYRA DO Ot Z01.818 ENCOUNTER FOR OTHER PREPROCEDURAL EXAMIN 09/25/2019 AL VIEYRA DO Ot Z11. 59 ENCOUNTER FOR SCREENING FOR OTHER VIRAL 09/29/2019 AL VIEYRA DO Ot D12. 2 BENIGN NEOPLASM OF ASCENDING COLON 09/29/2019 AL VIEYRA DO Ot E78. 5 HYPERLIPIDEMIA, UNSPECIFIED 09/29/2019 AL VIEYRA DO Ot F79 UNSPECIFIED INTELLECTUAL DISABILITIES 09/29/2019 AL VIEYRA DO Ot I10 ESSENTIAL (PRIMARY) HYPERTENSION 09/29/2019 AL VIEYRA DO Ot J45.909 UNSPECIFIED ASTHMA, UNCOMPLICATED 09/29/2019 AL VIEYRA DO Ot Z12. 11 ENCOUNTER FOR SCREENING FOR MALIGNANT NE 09/29/2019 AL VIEYRA DO Ot Z79. 84 INTERMEDIATE (CURRENT) USE OF ORAL HYPOGLYC 09/29/2019 AL VIEYRA DO Ot Z79.899 OTHER INTERMEDIATE (CURRENT) DRUG THERAPY 10/02/2019 GUILLERMO VIEYRA DOTT Yunier Ot D12. 2 BENIGN NEOPLASM OF ASCENDING COLON 10/02/2019 AL VIEYRA DO Ot E78. 5 HYPERLIPIDEMIA, UNSPECIFIED 10/02/2019 GUILLERMO VIEYRA DOTT D Ot F79 UNSPECIFIED INTELLECTUAL DISABILITIES 10/02/2019 GUILLERMO VIEYRA DOTT Yunier Ot I10 ESSENTIAL (PRIMARY) HYPERTENSION 10/02/2019 AL VIEYRA DO Ot J45.909 UNSPECIFIED ASTHMA, UNCOMPLICATED 10/02/2019 AL VIEYRA DO D Ot Z12. 11 ENCOUNTER FOR SCREENING FOR MALIGNANT NE 10/02/2019 [facility] Ot Z79. 84 MEDICAL RECORDS ASSISTANT (CURRENT) USE OF ORAL HYPOGLYC 10/02/2019 [facility] Ot Z79.899 OTHER MEDICAL RECORDS ASSISTANT (CURRENT) DRUG THERAPY 10/02/2019 [facility] Ot D12. 2 BENIGN NEOPLASM OF ASCENDING COLON 10/02/2019 [facility] Ot E78. 5 HYPERLIPIDEMIA, UNSPECIFIED 10/02/2019 [facility] Ot F79 UNSPECIFIED INTELLECTUAL DISABILITIES 10/02/2019 [facility] Ot I10 ESSENTIAL (PRIMARY) HYPERTENSION 10/02/2019 [facility] Ot J45.909 UNSPECIFIED ASTHMA, UNCOMPLICATED 10/02/2019 VIEYRA DOAL Ot Z12. 11 ENCOUNTER FOR SCREENING FOR MALIGNANT NE 10/02/2019 [facility] Ot Z79. 84 MEDICAL RECORDS ASSISTANT (CURRENT) USE OF ORAL HYPOGLYC 10/02/2019 [facility] Ot Z79.899 OTHER MEDICAL RECORDS ASSISTANT (CURRENT) DRUG THERAPY 11/02/2019 [facility] Ot D12. 2 BENIGN NEOPLASM OF ASCENDING COLON 11/02/2019 [facility] Ot Z01.818 ENCOUNTER FOR OTHER PREPROCEDURAL EXAMIN 11/02/2019 [place] HRERON Ot Z20.828 CONTACT W AND EXPOSURE TO OTH VIRAL COMM 11/05/2019 [facility] Ot D12. 6 BENIGN NEOPLASM OF COLON, UNSPECIFIED 11/05/2019 [facility] Ot Z53. 09 PROC/TRTMT NOT CARRIED OUT BECAUSE OF CO Procedures Code Description [place] [address] PSYC H PHARM MGMT 04/17/2012 64038 A1C (IN-HOUSE) 04/28/2012 05790 UA L HAYDEN DIP 04/28/2012 74373 MICR O ALBUMIN-IN HOUSE 04/28/2012 94392 ROUT INE VENIPUNCTURE 08/05/2012 75531 ROUT INE VENIPUNCTURE 08/05/2012 03690 CBC 08/05/2012 65765 CBC 08/05/2012 52002 LIVE R PANEL (LFT) 08/05/2012 08561 LIVE R PANEL (LFT) 08/05/2012 21371 LIPI D PANEL 08/05/2012 53590 LIPI D PANEL 08/05/20127753535 GF R CALC (RESULT ONLY) 08/05/20122840475 GF R CALC (RESULT ONLY) 08/05/2012 15603 VALP ROIC ACID / DEPAKOTE 08/05/2012 58372 VALP ROIC ACID / DEPAKOTE 08/05/2012 79793 DAVID L PROFILE 08/05/2012 02631 DAVID L PROFILE 08/05/2012 59905 FOLATE 08/06/2012 60804 FOLATE 08/06/2012 18207 HOMO CYSTINE 08/07/2012 51001 HOMO CYSTINE 08/07/2012 00006 JAYNE MIN D 25-HYDROXY (D2,D3, TOTAL) 08/11/2012 50225 JAYNE MIN D 25-HYDROXY (D2,D3, TOTAL) 08/11/2012 16832 ROUT INE VENIPUNCTURE 08/14/2012 28420 UA W / CULTURE IF INDICATED 08/14/2012 02475 PSA TOTAL 08/14/2012 59622 SLEE P STUDY 11/26/2012 38484 A1C (IN-HOUSE) 02/12/2013 79419 JAYNE MIN D 25-HYDROXY (D2,D3, TOTAL) 07/29/2013 58153 A1C (IN-HOUSE) 08/10/2013 28453 UA L HAYDEN DIP 08/12/2014 14227 CULT URE URINE 08/14/2014 Results Test Result [...] 7-25 CREATININE 1.25 mg/dL 0.70-1.33 eGFR NON-AFR. [place] 65 mL/min/1.73m2 > OR = 60 eGFR [...] Status Pt. Type Provider Facility Loc./Unit Complaint [id number] 10/03/2016 08:49:00 Document Registration [id number] 11/24/2019 13:54:00 020 13:57:00 DIS Outpatient AL VIEYRA DO [facility] PREOP METASTATIC SQUAMOUS UNIQUE L CARCINOMA [id number] 11/05/2019 07:29:00 020 09:15:00 DIS Outpatient AL VIEYRA DO [facility] SURG LOCAL HIGH GRADE DYSPLA ODESSA [id number] 11/02/2019 05:43:00 020 10:38:00 DIS Outpatient AL VIEYRA DO [facility] PREOP LOCAL HIGH GRADE DYSPLA ODESSA [id number] 09/29/2019 09:18:00 020 11:40:00 DIS Outpatient AL VIEYRA DO [facility] ENDO SCREENING [id number] 09/25/2019 08:02:00 020 14:01:00 DIS Outpatient AL VIEYRA DO [facility] PREOP COLONOSCOPY [id number] 11/24/2012 21:00:00 013 06:55:00 DIS Outpatient [id number] 11/26/2019 09:40:00 P EN Preadmit AL VIEYRA DO METASTATIC SQUAMOUS CELL CARCINOMA [id number] 08/13/2014 08:00:00 08/13/2014 23:59: 59 CLS Outpatient VIRIDIANA CEBALLOS [id number] 07/23/2014 10:29:00 07/23/2014 23:59: 59 CLS Outpatient VIRIDIANA CEBALLOS [id number] 05/12/2014 14:35:00 05/12/2014 23:59: 59 CLS Outpatient JEET ALANIZ APRN S [id number] 11/25/2013 14:26:00 11/25/2013 23:59: 59 CLS Outpatient DAVID ARCINIEGA APRN [id number] 11/03/2013 07:53:00 11/03/2013 23:59: 59 CLS Outpatient MEERA STEWART DDS [id number] 09/29/2013 08:54:00 09/29/2013 23:59: 59 CLS Outpatient MEERA STEWART DDS [id number] 08/10/2013 12:06:00 08/10/2013 23:59: 59 CLS Outpatient JEET ALANIZ APRN [id number] 08/10/2013 12:06:00 08/10/2013 23:59: 59 CLS Outpatient KEVIN ALANIZ APRNA S [id number] 07/27/2013 09:15:00 07/27/2013 23:59: 59 CLS Outpatient MEERA STEWART DDS [id number] 07/23/2013 17:42:00 07/23/2013 23:59: 59 CLS Outpatient DAVID ARCINIEGA APRN [id number] 06/10/2013 11:12:00 06/10/2013 23:59: 59 CLS Outpatient PAYTON STEWART DDS [id number] 02/12/2013 13:24:00 02/12/2013 23:59: 59 CLS Outpatient KEVIN ALANIZ APRNA S [id number] 02/12/2013 13:24:00 02/12/2013 23:59: 59 CLS Outpatient KEVIN ALANIZ APRNA S [id number] 01/05/2013 11:24:00 01/05/2013 23:59: 59 CLS Outpatient JULISA PUGA DO [id number] 04/28/2012 10:05:00 04/28/2012 23:59: 59 CLS Outpatient JEET ALANIZ APRN S [id number] 04/28/2012 10:05:00 04/28/2012 23:59: 59 CLS Outpatient JEET ALANIZ APRN [id number] 04/10/2012 09:58:00 04/10/2012 23:59: 59 CLS Outpatient DAMIÁN ERAZO DDS [id number] 03/31/2012 12:06:00 03/31/2012 23:59: 59 CLS Outpatient [id number] 11/19/2011 12:36:00 11/19/2011 23:59:5 9 CLS Outpatient [id number] 10/20/2012 09:05:00 Document Registration [id number] 10/20/2012 09:05:00 Document Registration [id number] 08/14/2012 10:31:00 Document Registration [id number] 08/14/2012 10:31:00 Document Registration [id number] 08/05/2012 12:00:00 Document Registration [id number] 08/05/2012 12:00:00 Document Registration [id number] 11/18/2019 15:00:00 11/18/2019 23:59:5 9 CLS Outpatient JEET ALANIZ APRN [facility] [id number] 06/24/2019 15:30:00 Document Registration [id number] 01/19/2019 08:40:00 Document Registration [id number] 01/15/2019 08:40:00 Document Registration [id number] 10/08/2017 08:20:00 Document Registration [id number] 05/29/2017 10:40:00 Document Registration
[2019-11-26] MEDS ORDERED: ceFAZolin 2 GM IV Premixed 50 ML IV ONE (07:00)
[2019-11-26] MEDS ORDERED: metroNIDAZOLE 500MG/100ML IVPB 100 ML IV ONE (07:00)
[2019-11-26] MEDS ORDERED: ROCURONIUM 10 MG/ML 5 ML SYRINGE IV ONE (07:08)
[2019-11-26] MEDS ORDERED: fentaNYL INJECTION 100 MCG/2 ML AMP ONE (07:08)
[2019-11-26] MEDS ORDERED: NEOSTIGMINE 3 MG/3 ML VIAL ONE (07:08)
[2019-11-26] MEDS ORDERED: MIDAZOLAM 2 MG/2 ML (VERSED) VIAL ONE (07:08)
[2019-11-26] MEDS ORDERED: ONDANSETRON 4 MG/2 ML (SDV) Z0FRAN ONE (07:08)
[2019-11-26] MEDS ORDERED: LIDOCAINE PF 2% 5 ML (XYLOCAINE) VIAL ONE (07:08)
[2019-11-26] MEDS ORDERED: GLYCOPYRROLATE 0.2 MG/ML (ROBINUL) 2 ML VIAL ONE (07:08)
[2019-11-26] MEDS ORDERED: BUPIVACAINE 0.5% 30 ML (SENSORCAINE) VIAL ONE (07:08)
[2019-11-26] MEDS ORDERED: proPOfol 200 MG/20 ML (DIPRIVAN) VIAL IV ONE (07:08)
[2019-11-26] MEDS ORDERED: SEVOFLURANE (ULTANE) 15 ML INHAL SOLN ONE (07:08)
[2019-11-26] MEDS: LACTATED RINGERS 1,000 ML IV PRN ×2 (07:10→08:35)
[2019-11-26] MEDS ORDERED: BUP/EPI 0.5% 1:200,000 (MARCAINE) 10ML VIAL IJ ONE (07:15)
[2019-11-26 07:39] LABS: BASOPHILS % (AUTO) 0 % (0-10); EOSINOPHILS % (AUTO) 1 % (0-10); HEMATOCRIT 36 % (40-54); HEMOGLOBIN 12.4 G/DL (13.3-17.7); LYMPHOCYTES # (AUTO) 1.5 X 10^3 (1.0-4.0); LYMPHOCYTES % (AUTO) 34 % (12-44); MEAN CORPUSCULAR HEMOGLOBIN 32 PG (25-34); MEAN CORPUSCULAR HGB CONC 35 G/DL (32-36); MEAN CORPUSCULAR VOLUME 91 FL (80-99); MEAN PLATELET VOLUME 8.9 FL (7.4-10.4); MONOCYTES # (AUTO) 0.3 X 10^3 (0.0-1.0); MONOCYTES % (AUTO) 8 % (0-12); NEUTROPHILS # (AUTO) 2.6 X 10^3 (1.8-7.8); NEUTROPHILS % (AUTO) 58 % (42-75); PLATELET COUNT 128 10^3/uL (130-400); RED CELL DISTRIBUTION WIDTH 12.6 % (10.0-14.5); WHITE BLOOD COUNT 4.5 10^3/uL (4.3-11.0)
[2019-11-26] MEDS ORDERED: HYDROmorphone 2 MG/ML VIAL (DILAUDID) ONE (08:40)
[2019-11-26] MEDS ORDERED: PHENYLEPHRINE 100 MCG/ML 10 ML (ANESTHESIA) SYR ONE (08:40)
[2019-11-26] MEDS ORDERED: ONDANSETRON 4 MG/2 ML (SDV) Z0FRAN IVP PRN (10:15)
[2019-11-26] MEDS ORDERED: morphine INJ 10 MG/ML 1ML (SYR OR VIAL) IVP ONE (10:15)
[2019-11-26] MEDS ORDERED: HYDROmorphone 2 MG/ML VIAL (DILAUDID) IV ONE (10:15)
--- NOTE | 2019-11-26 10:55 | NUR ---
MINDI SMITH Makeda admitted to room 404-1, with an admitting diagnosis of POST-OP COLON RESECTION, on 11/26/19 from OR via BED, accompanied by PACU STAFF.MINDI SMITH introduced to surroundings, call light, bed controls, phone, TV, temperature control, lights, meal times, smoking policy, visitor policy, side rail policy, bathrooms and showers. Patient Rights given to patient in the handbook. MINDI SMITH verbalizes understanding that [facility] is not responsible for the loss or damage to any personal effects or valuables that are kept in the patients posession during their hospitalization. MINDI SMITH verbalizes understanding of Interdisciplinary Patient Education. Patient and/or family were informed about the Rapid Response Team and its purpose.
[2019-11-26] MEDS: NS IV 1000 ML 1,000 ML IV SCH ×3 (12:45→20:28)
[2019-11-26] MEDS: morphine INJ 4 MG/ML 1 ML (VIAL/SYRINGE) IVP PRN ×4 (12:46→20:29)
--- NOTE | 2019-11-26 13:24 | NUR ---
Received social service consult and will follow.
[2019-11-26] MEDS: ceFAZolin INJECTION 2,000 MG in WATER (STERILE) FOR INJECTION 10 ML IV SCH ×2 (13:55→20:40)
[2019-11-26] MEDS: metroNIDAZOLE 500MG/100ML IVPB 100 ML IV SCH ×2 (13:56→20:47)
--- NOTE | 2019-11-26 13:57 | Occ Therapy Progress Note ---
Therapy Progress Note OT orders received and chart reviewed, pt s/p colon resection this AM. OT attempted evaluation but pt drowsy, had difficulty keeping eyes open, unable to answer questions, and unable to participate in skilled therapy at this time. OT will attempt evaluation again tomorrow. 1, visit MARLENE BLOOM OT Nov 26, 2019 13:57
[2019-11-26] MEDS ORDERED: RT-ALBUTEROL SULF 2.5 MG/3 ML PRE-MIX VIAL INH PRN (14:00)
--- NOTE | 2019-11-26 14:21 | Physical Therapy Progress Note ---
Therapy Progress Note Patient had a colon resection this morning and just recently got back to his room from recovery. OT attempted evaluation and patient was too drowsy still to participate. PT will attempt evaluation in the morning. BOONE LOVE PT Nov 26, 2019 14:21
--- NOTE | 2019-11-26 16:38 | NUR ---
According to pt's RN, pt is a client of [facility]. In reviewing the chart, it appears pt was recently given a temporary guardian by the name of Karen Soriano but didn't see a contact number for her. Contacted [facility] but no on was available but requested a call back. .
--- NOTE | 2019-11-26 16:46 | NUR ---
Correction-Pt's temporary guardian is Karen Husain,
--- NOTE | 2019-11-26 18:21 | NUR ---
PT'S SURGICAL ISLAND DRESSING PLACED OVER LISA WAS SATURATED WITH POST-OP DRAINAGE. THIS RN CHANGED ISLAND DRESSING AT THIS TIME. PT'S LISA WELL INTACT AND INCISION IS WELL APPROXIMATED, NO DRAINAGE NOTED AT TIME OF DRESSING CHANGE.
--- NOTE | 2019-11-26 18:54 | Consultation ---
HPI History of Present Illness: Asked to see patient for medical management after partial colon resection for colon cancer. Patient is doing well after surgery. States that he is having some abdominal pain. Patient has some MR but is able to answer simple questions. Upon chart review patient has NIDDM and HTN which both seem to be well controlled. No other concerns today. Source: patient, old records Exam Limitations: other (Mild MR) Date seen by provider: Nov 26, 2019 Time Seen by Provider: 13:20 Attending Physician Jem Garcia DO [facility] Consult Date of Admission Nov 26, 2019 at 06:05 Home Medications Home Medications Reviewed patient Home Medication Reconciliation performed by pharmacy medication reconciliations die maintenance technician and/or nursing. Patients Allergies have been reviewed. Allergies Coded Allergies: No Known Drug Allergies (Unverified , 10/29/19) [id number]-Lrlyku Hx Patient Social History Type Used: Cigarettes 2nd Hand Smoke Exposure: Yes Recent Foreign Travel: No Contact w/other who traveled: No Recent Hopitalizations: No Immunizations Up To Date Tetanus Booster (TDap): Unknown Past Medical History NIDDM HTN HLD Review of Systems ([facility]) Constitutional: No chills, No fever; malaise EENTM: no symptoms reported; No mouth pain, No nose congestion, No throat pain Respiratory: No cough, No dyspnea on exertion; short of breath Cardiovascular: no symptoms reported; No chest pain, No edema, No palpitations Gastrointestinal: abdominal pain, loss of appetite; No nausea, No vomiting Genitourinary: no symptoms reported; No dysuria, No frequency, No hematuria Musculoskeletal: no symptoms reported; No back pain, No joint pain, No muscle pain Skin: no symptoms reported; No lesions, No rash Psychiatric/Neurological: No Symptoms Reported Reviewed Test Results Reviewed Test Results Lab Laboratory Tests Test 11/26/19 07:30 Range/Units White Blood Count 4.5 4.3-11.0 10^3/uL Red Blood Count 3.91 L 4.35-5.85 10^6/uL Hemoglobin 12.4 L 13.3-17.7 G/DL Hematocrit 36 L 40-54 % Mean Corpuscular Volume 91 80-99 FL Mean Corpuscular Hemoglobin 32 25-34 PG Mean Corpuscular Hemoglobin Concent 35 32-36 G/DL Red Cell Distribution Width 12.6 10.0-14.5 % Platelet Count 128 L 130-400 10^3/uL Mean Platelet Volume 8.9 7.4-10.4 FL Neutrophils (%) (Auto) 58 42-75 % Lymphocytes (%) (Auto) 34 12-44 % Monocytes (%) (Auto) 8 0-12 % Eosinophils (%) (Auto) 1 0-10 % Basophils (%) (Auto) 0 0-10 % Neutrophils # (Auto) 2.6 1.8-7.8 X 10^3 Lymphocytes # (Auto) 1.5 1.0-4.0 X 10^3 Monocytes # (Auto) 0.3 0.0-1.0 X 10^3 Eosinophils # (Auto) 0.0 0.0-0.3 10^3/uL Basophils # (Auto) 0.0 0.0-0.1 10^3/uL Physical Exam-([facility]) Physical Exam Vital Signs VS - Last 72 Hours, by Label 11/26/19 11/26/19 11/26/19 11/26/19 10:00 10:00 10:10 10:15 Temp 36.2 Resp 16 20 B/P (MAP) 117/76 (90) 116/76 (89) Pulse Ox 100 100 O2 Delivery OxyMask OxyMask OxyMask OxyMask O2 Flow Rate 8 8 8 8 11/26/19 11/26/19 11/26/19 11/26/19 10:20 10:30 10:30 10:40 Resp 20 20 20 B/P (MAP) 116/76 (89) 126/86 (99) 142/99 (113) Pulse Ox 100 100 98 O2 Delivery OxyMask OxyMask OxyMask Room Air O2 Flow Rate 8 3 3 11/26/19 11/26/19 11/26/19 11/26/19 10:45 10:55 10:55 10:55 Temp 35.6 Pulse 80 Resp 18 B/P (MAP) 140/81 (100) Pulse Ox 95 94 O2 Delivery Room Air Room Air Room Air Room Air 11/26/19 11/26/19 11/26/19 11/26/19 10:55 12:00 13:17 16:00 Temp 36.2 36.1 36.1 36.5 Pulse 88 88 84 Resp 20 16 18 B/P (MAP) 144/89 (107) 134/88 (103) 123/76 (92) Pulse Ox 98 96 96 94 O2 Delivery Room Air Room Air Room Air FiO2 21 Capillary Refill : Less Than 3 SecondsLess Than 3 Seconds General Appearance: WD/WN, mild distress (due to pain this afternoon) HEENT: PERRL/EOMI Neck: non-tender, full range of motion, supple Respiratory: chest non-tender, lungs clear, normal breath sounds, no respira tory distress, no accessory muscle use Cardiovascular: normal peripheral pulses, regular rate, rhythm, no edema, no murmur Gastrointestinal: soft; No guarding, No rebound; tenderness Back: no CVA tenderness, no vertebral tenderness Extremities: normal range of motion, non-tender, no pedal edema, no calf tenderness, normal capillary refill Neurologic/Psychiatric: 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 tested, alert, normal mood/affect, oriented x 3 Skin: normal color, warm/dry Lymphatic: no adenopathy Assessment/Plan Assessment/Plan (1) Mass of colon Status: Acute Assessment & Plan: - Partial resection today by Dr Garcia, asked to see patient for medical management (2) Non-insulin dependent type 2 diabetes mellitus Status: Chronic Assessment & Plan: - A1c pending, will restart home meds when taking PO (3) HTN (hypertension) Status: Chronic Assessment & Plan: - Currently holding meds due to normotension Qualifiers: Qualified Codes: I10 - Essential (primary) hypertension (4) HLD (hyperlipidemia) Status: Chronic Assessment & Plan: - Will restart statin once taking PO Qualifiers: Qualified Codes: E78.5 - Hyperlipidemia, unspecified (5) Mild cognitive impairment Status: Chronic (6) BPH (benign prostatic hyperplasia) Status: Chronic (7) DVT prophylaxis Status: Acute Assessment & Plan: - SCDs, would recommend starting lovenox when ok with surgery Clinical Quality Measures DVT/VTE Risk/Contraindication: Risk Factor Score Per Nursin RFS Level Per Nursing on Admit: 4+=Very High GRIS GARRISON MD Nov 26, 2019 18:54
[2019-11-26] MEDS: ONDANSETRON 4 MG/2 ML (SDV) Z0FRAN IVP PRN (20:29)
[2019-11-26] MEDS: DIVALPROEX 500 MG DELAYED RELEASE (DEPAKOTE) TAB PO SCH (20:30)
[2019-11-26] MEDS: QUEtiapine 100 MG (SEROquel) TAB IMMEDIATE RELEASE PO SCH (20:30)
[2019-11-26] MEDS ORDERED: DESMOPRESSIN 0.2 MG TAB (NON-FORMULARY) PO SCH (21:00)
[2019-11-26] MEDS ORDERED: NON-FORMULARY MEDICATION 1 EA EA (Quetiapine Fumarate 300 MG) PO SCH (21:00)
[2019-11-27] VITALS: BP 133/76
--- NOTE | 2019-11-27 01:16 | NUR ---
193 dr aguilar gave orders for is at bedside and may have meds with sips of po fluids
[2019-11-27 04:04] VITALS: BP 110/72
[2019-11-27] MEDS: NS IV 1000 ML 1,000 ML IV SCH ×3 (04:07→19:53)
[2019-11-27 06:40] LABS: BASOPHILS % (AUTO) 0 % (0-10); EOSINOPHILS % (AUTO) 0 % (0-10); HEMATOCRIT 39 % (40-54); HEMOGLOBIN 13.4 G/DL (13.3-17.7); LYMPHOCYTES # (AUTO) 0.5 X 10^3 (1.0-4.0); LYMPHOCYTES % (AUTO) 7 % (12-44); MEAN CORPUSCULAR HEMOGLOBIN 31 PG (25-34); MEAN CORPUSCULAR HGB CONC 34 G/DL (32-36); MEAN CORPUSCULAR VOLUME 92 FL (80-99); MEAN PLATELET VOLUME 9.2 FL (7.4-10.4); MONOCYTES # (AUTO) 0.4 X 10^3 (0.0-1.0); MONOCYTES % (AUTO) 5 % (0-12); NEUTROPHILS # (AUTO) 7.1 X 10^3 (1.8-7.8); NEUTROPHILS % (AUTO) 88 % (42-75); PLATELET COUNT 132 10^3/uL (130-400); RED CELL DISTRIBUTION WIDTH 13.2 % (10.0-14.5)
[2019-11-27 07:06] LABS: ALANINE AMINOTRANSFERASE 7 U/L (0-55); ALBUMIN 3.7 GM/DL (3.2-4.5); ALKALINE PHOSPHATASE 44 U/L (40-136); BILIRUBIN,TOTAL 0.4 MG/DL (0.1-1.0); BUN/CREATININE RATIO 7; CALCIUM 9.1 MG/DL (8.5-10.1); CARBON DIOXIDE 24 MMOL/L (21-32); CHLORIDE 98 MMOL/L (98-107); CREATININE SERUM 0.84 MG/DL (0.60-1.30); GFR ESTIMATED > 60; GLUCOSE 103 MG/DL (70-105); MAGNESIUM 1.7 MG/DL (1.6-2.4); POTASSIUM 4.5 MMOL/L (3.6-5.0); SODIUM 133 MMOL/L (135-145)
--- NOTE | 2019-11-27 07:22 | Anesthesia-General Post-Op ---
General Patient Condition Mental Status/LOC: Same as Preop Cardiovascular: Satisfactory Nausea/Vomiting: Absent Respiratory: Satisfactory Pain: Controlled Complications: Absent Post Op Complications Complications None Follow Up Care/Instructions Patient Instructions None needed. Anesthesia/Patient Condition Patient Condition Patient is doing well, no complaints, stable vital signs, no apparent adverse anesthesia problems. No complications reported per nursing. CATRACHITO ESQUIVEL CRNA Nov 27, 2019 07:22
[2019-11-27 07:27] LABS: BAND NEUTROPHILS 18 %; BASOPHILS % (MANUAL) 0 %; EOSINOPHILS % (MANUAL) 0 %; LYMPHOCYTES % (MANUAL) 10 %; MONOCYTES % (MANUAL) 6 %; NEUTROPHILS % (MANUAL) 66 %
[2019-11-27 07:28] LABS: RBC MORPH NORMAL
--- NOTE | 2019-11-27 07:56 | OPERATIVE REPORT ---
DATE OF SERVICE: PREOPERATIVE DIAGNOSIS: Ascending colon mass. POSTOPERATIVE DIAGNOSIS: Ascending colon mass. PROCEDURE: Laparoscopic hand-assisted right colon resection with takedown of hepatic flexure. SURGEON: Al Garcia DO RAIL TECHNICIAN: Dr. Hull, assisted in retraction, dissection and closure. ANESTHESIA: General. ESTIMATED BLOOD LOSS: Minimal. COMPLICATIONS: None. INDICATIONS: The patient is a 54-year-old male found to have ascending colon mass. He was recommended right colon resection. He understands risks and benefits of procedure and wished to proceed with procedure. Consent was signed in the chart. DESCRIPTION OF PROCEDURE: The patient was taken to the operating suite, was prepped and draped in sterile fashion. A timeout was performed. A midline incision was made at the umbilicus for hand port. A 12 mm trocar was placed in subxiphoid region and a 5 mm trocar was placed in the right upper quadrant. Abdomen was insufflated and colon was grasped. The tattoo was identified. The right colon was then began to be dissected along the white line of Toldt and the hepatic flexure was continued to be taken down until the colon could be rotated into a midline position. Once this was mobilized and freed. This was then brought out through the hand port, which the distal ileum was then dissected along with the distal portion of the colon distal to the tattooing, which was dissected around and the anastomosis was created in a [id number] fashion using a JAKUB linear stapler. A crotch stitch was placed at the staple line with 3-0 Vicryl. The LigaSure was then used to divide the mesentery and the specimen was obtained, which included distal ileum, appendix and right colon. The mesenteric defect was then closed using 3-0 Vicryl in a running fashion. The abdomen was then irrigated with copious amounts of irrigation and suction. The anastomosis was widely patent. The fascia was then closed using 1-0 looped PDS in a running fashion. The abdomen was reinsufflated. The abdomen was inspected noting no other pathology and the anastomosis was viable. The abdomen was then desufflated, the trocars were removed. The skin was then closed with luis after being irrigated. The abdomen was then washed and dried and sterile bandages were applied. The patient tolerated procedure well without any complications. He was taken to recovery room in stable condition. Job ID: [id number] DocumentID: [id number] Dictated Date: 11/26/2019 20:32:59 Household Appliance Mechanic Date: 11/27/2019 07:23:13 Dictated By: AL GARCIA DO
--- NOTE | 2019-11-27 08:50 | Progress Note - Surgery ---
SHANICE BOOTH MED STUDENT 11/27/19 0850: Subjective Date Seen by a Provider: Nov 27, 2019 Time Seen by a Provider: 08:40 Subjective/Events-last exam Pt appears in pain but otherwise tolerating procedure well. Says main source of pain is the incision. Incision looks clean with no signs of infection or edema. Pt has some MR, but is answering simple questions. Says he hasn't had gas or BM.. Is not currently ambulating, and any movement causes him discomfort at the incision site. Review of Systems General: No Chills, No Night Sweats HEENT: No Head Aches, No Dysphasia Pulmonary: No Dyspnea, No Cough Cardiovascular: No: Chest Pain, Palpitations Gastrointestinal: Abdominal Pain (incision site); No: Nausea, Vomiting Genitourinary: No Dysuria, No Retention Musculoskeletal: No: other, neck pain, shoulder pain, arm pain, back pain, hand pain, leg pain, foot pain Neurological: No: Weakness, Numbness Focused Exam Respiratory: Chest Non Tender, No Accessory Muscle Use, No Respiratory Distress Cardiovascular: Regular Rate, Rhythm, Normal Peripheral Pulses Skin: normal color, warm/dry Objective Exam Vital Signs Date Time Temp Pulse Resp B/P (MAP) Pulse Ox O2 Delivery O2 Flow Rate FiO2 11/27/19 04:04 36.8 68 18 110/72 (85) 95 Room Air 11/27/19 00:00 36.6 88 18 133/76 (95) 95 Room Air 3.00 3.00 11/26/19 21:00 36.6 11/26/19 20:30 93 Room Air 11/26/19 20:29 36.6 11/26/19 19:15 36.6 85 18 124/76 (92) 93 Room Air 11/26/19 16:00 36.5 84 18 123/76 (92) 94 Room Air 11/26/19 13:17 36.1 88 96 21 11/26/19 12:00 36.1 88 16 134/88 (103) 96 Room Air 11/26/19 10:55 36.2 20 144/89 (107) 98 Room Air 11/26/19 10:55 35.6 80 18 140/81 (100) 94 Room Air 11/26/19 10:55 Room Air 11/26/19 10:55 95 Room Air 11/26/19 10:45 Room Air 11/26/19 10:40 20 142/99 (113) 98 Room Air 11/26/19 10:30 OxyMask 3 11/26/19 10:30 20 126/86 (99) 100 OxyMask 3 11/26/19 10:20 20 116/76 (89) 100 OxyMask 8 11/26/19 10:15 OxyMask 8 11/26/19 10:10 20 116/76 (89) 100 OxyMask 8 11/26/19 10:00 36.2 16 117/76 (90) 100 OxyMask 8 11/26/19 10:00 OxyMask 8 I & O 11/27/19 07:00 Intake Total 1500 ml Output Total 3000 ml Balance -1500 ml Capillary Refill : Less Than 3 SecondsLess Than 3 Seconds General Appearance: No Apparent Distress, WD/WN HEENT: Normal ENT Inspection Neck: Normal Inspection, Supple Respiratory: Chest Non Tender, No Accessory Muscle Use, No Respiratory Distress Cardiovascular: No Edema, No JVD Gastrointestinal: normal bowel sounds, soft; No guarding, No rebound; tenderness Neurologic/Psychiatric: Alert, Oriented x3, No Motor/Sensory Deficits Skin: Warm/Dry Lymphatic: No Adenopathy Results Lab Laboratory Tests 11/27/19 05:57: White Blood Count 8.0, Red Blood Count 4.28L, Hemoglobin 13.4, Hematocrit 39L, Mean Corpuscular Volume 92, Mean Corpuscular Hemoglobin 31, Mean Corpuscular Hemoglobin Concent 34, Red Cell Distribution Width 13.2, Platelet Count 132, Mean Platelet Volume 9.2, Neutrophils (%) (Auto) 88H, Lymphocytes (%) (Auto) 7L, Monocytes (%) (Auto) 5, Eosinophils (%) (Auto) 0, Basophils (%) (Auto) 0, Neutrophils # (Auto) 7.1, Lymphocytes # (Auto) 0.5L, Monocytes # (Auto) 0.4, Eosinophils # (Auto) 0.0, Basophils # (Auto) 0.0, Neutrophils % (Manual) 66, Lymphocytes % (Manual) 10, Monocytes % (Manual) 6, Eosinophils % (Manual) 0, Basophils % (Manual) 0, Band Neutrophils 18, Blood Morphology Comment NORMAL, Sodium Level 133L, Potassium Level 4.5, Chloride Level 98, Carbon Dioxide Level 24, Anion Gap 11, Blood Urea Nitrogen 6L, Creatinine 0.84, Estimat Glomerular Filtration Rate > 60, BUN/Creatinine Ratio 7, Glucose Level 103, Calcium Level 9.1, Corrected Calcium 9.3, Magnesium Level 1.7, Total Bilirubin 0.4, Aspartate Amino Transf (AST/SGOT) 13, Alanine Aminotransferase (ALT/SGPT) 7, Alkaline Phosphatase 44, Total Protein 6.0L, Albumin 3.7 Assessment/Plan Assessment/Plan Admission Diagonsis Bowel Resection Assessment/Plan Bowel Resection Begin introducing fluid diet. DC rosa and slowly introduce ambulation Begin DVT prophylaxis. Clinical Quality Measures DVT/VTE Risk/Contraindication: Risk Factor Score Per Nursin RFS Level Per Nursing on Admit: 4+=Very High AL VIEYRA DO 11/27/19 1410: Subjective Subjective/Events-last exam Pain controlled. Has had some sips of clears and did okay. Not using IS well. Rosa in for accurate i/o and has good urine output. No bm. Denies n/v fever sweats chills shortness of breath or chest pain. Objective Exam General Appearance: No Apparent Distress (sitting in chair), WD/WN HEENT: PERRL/EOMI, Normal ENT Inspection Neck: Normal Inspection, Supple Respiratory: Chest Non Tender, No Accessory Muscle Use, No Respiratory Distress Cardiovascular: No Edema, No JVD Gastrointestinal: soft; No guarding, No rebound; tenderness (incisional, c/d/i no erythema) Neurologic/Psychiatric: Alert, Oriented x3, No Motor/Sensory Deficits Skin: Normal Color, Warm/Dry Lymphatic: No Adenopathy Assessment/Plan Assessment/Plan Assessment/Plan s/p lap hand assisted right colon resection for ascending colon mass pain control increase activity not using IS well, will have respiratory therapy to help lovenox/scd's for dvt prophylaxis pt eval and treat dc rosa clear liquid diet Supervisory-Addendum Brief Verification & Attestation Participated in pt care: history, MDM, physical Personally performed: exam, history, MDM, supervision of care Care discussed with: Medical Student Procedures: n/a Results interpretation: Verified all documentation Verification and Attestation of Medical Student E/M Service A medical student performed and documented this service in my presence. I reviewed and verified all information documented by the medical student and made modifications to such information, when appropriate. I personally performed the physical exam and medical decision making. Al Vieyra, Nov 27, 2019,14:09 SHANICE BOOTH STUDENT Nov 27, 2019 08:50 AL VIEYRA DO Nov 27, 2019 14:10
[2019-11-27 08:56] VITALS: BP 112/78
--- NOTE | 2019-11-27 08:59 | History & Physical ---
NASIM MOHAN MED STUDENT 11/27/19 0858: History of Present Illness History of Present Illness Reason for visit/HPI Mr. Zavala is a 54 y/o M with a cc of abdominal pain from partial bowel resection. He has a hx of MR but is able to answer simple closed ended Q's. Pt complains of belly pain around surgical site, 10/10 pain that radiates. Nothing makes it better, movement makes pain worse. Pt was not ambulating. He's had no previous occurrences. PMH includes controlled HTN, noninsulin dependent diabetes, dysplasia in colon, BPH, hyperlipidemia. Pt smokes, denies alcohol and elicit drugs. Pt has no drug allergies. Date of Admission Nov 26, 2019 at 06:05 Time Seen by a Provider: 07:45 I consulted on this patient on 11/27/19 07:45 Attending Physician Jem Garcia DO Admitting Physician Center/[facility] Consult Allergies and Home Medications Allergies Coded Allergies: No Known Drug Allergies (Unverified , 10/29/19) Home Medications Albuterol Sulfate 18 Gm Hfa.aer.ad, 2 PUFF INH Q4H PRN for WHEEZING, (Reported) Desmopressin Acetate 0.2 Mg Tablet, 0.2 MG PO HS, (Reported) Divalproex Sodium 500 Mg Tablet.dr, 500 MG PO HS, (Reported) Fesoterodine Fumarate 8 Mg Tab.er.24h, 8 MG PO DAILY, (Reported) Folic Acid 0.8 Mg Capsule, 0.8 MG PO DAILY, (Reported) Glyburide 2.5 Mg Tablet, 1.25 MG PO DAILY, (Reported) Losartan/Hydrochlorothiazide 1 Each Tablet, 1 EACH PO DAILY, (Reported) Metformin HCl 500 Mg Tablet, 1,000 MG PO BID, (Reported) Psyllium Husk/Ca Carbonate 1 Each Capsule, 3 EACH PO DAILY, (Reported) Quetiapine Fumarate 100 Mg Tablet, 100 MG PO DAILY, (Reported) Quetiapine Fumarate 300 Mg Tablet, 300 MG PO HS, (Reported) Simvastatin 20 Mg Tablet, 20 MG PO HS, (Reported) Tamsulosin HCl 0.4 Mg Cap, 0.8 MG PO DAILY, (Reported) Patient Home Medication List Home Medication List Reviewed: Yes Past Qbmccye-Blnrvd-Bojoio Hx Patient Social History Alcohol Use: Denies Use Smoking Status: Smoker Current Status UKN (smokes, unknown pack years) Type Used: Cigarettes 2nd Hand Smoke Exposure: Yes Recent Foreign Travel: No Contact w/other who traveled: No Recent Hopitalizations: No Immunizations Up To Date Tetanus Booster (TDap): Unknown Seasonal Allergies Seasonal Allergies: No Surgeries No Respiratory Yes Currently Using CPAP: No Currently Using BIPAP: No Cardiovascular Yes Hypertension Neurological Yes (MENTAL RETARDATION) Genitourinary No Gastrointestinal No Musculoskeletal No Endocrine History of Endocrine Disorders: Yes Endocrine Disorders: Diabetes, Non-Insulin dep HEENT History of HEENT Disorders: No Cancer No Psychosocial History of Psychiatric Problem: No Integumentary History of Skin or Integumenta: No Blood Transfusions History of Blood Disorders: No Review of Systems Constitutional: see HPI EENTM: see HPI Respiratory: no symptoms reported Cardiovascular: no symptoms reported Gastrointestinal: abdominal pain (at surgical site, winces upon palpation, no discoloration) Skin: no symptoms reported Psychiatric/Neurological: See HPI Physical Exam Vital Signs Vital Signs - First Documented 11/26/19 11/26/19 10:00 13:17 Temp 36.2 Resp 16 B/P (MAP) 117/76 (90) Pulse Ox 100 O2 Delivery OxyMask O2 Flow Rate 8 FiO2 21 Capillary Refill : Less Than 3 SecondsLess Than 3 Seconds Height, Weight, BMI Height: '" Weight: lbs. oz. kg; 31.22 BMI Method: General Appearance: Mild Distress Respiratory: Lungs Clear, Normal Breath Sounds Cardiovascular: Regular Rate, Rhythm Gastrointestinal: Normal Bowel Sounds, Tenderness Skin: Normal Color, Warm/Dry Assessment/Plan Assessment and Plan colon cancer: - s/p howel resection by surgery. pain managed by surg. path pending HTN: - well controlled, medications held until no longer NPO, currently normotensive hyperlipidemia: - hold statins until no longer NPO non-insulin dependent diabetes: - HbAIc ordered, pending ~MS Ameya3 Admission Diagnosis Admission Status: Inpatient Order (span 2 midnights) Reason for Inpatient Admission: s/p post op bowel resection abdominal pain Clinical Quality Measures DVT/VTE Risk/Contraindication: Risk Factor Score Per Nursin RFS Level Per Nursing on Admit: 4+=Very High Supervisory-Addendum Brief Verification & Attestation Participated in pt care: history, physical Personally performed: exam, history Care discussed with: Medical Student Procedures: n/a n/a GRIS GARRISON MD 11/27/19 1244: History of Present Illness History of Present Illness Date Seen by a Provider: Nov 27, 2019 Allergies and Home Medications Allergies Coded Allergies: No Known Drug Allergies (Unverified , 10/29/19) Home Medications Albuterol Sulfate 18 Gm Hfa.aer.ad, 2 PUFF INH Q4H PRN for WHEEZING, (Reported) Desmopressin Acetate 0.2 Mg Tablet, 0.2 MG PO HS, (Reported) Divalproex Sodium 500 Mg Tablet.dr, 500 MG PO HS, (Reported) Fesoterodine Fumarate 8 Mg Tab.er.24h, 8 MG PO DAILY, (Reported) Folic Acid 0.8 Mg Capsule, 0.8 MG PO DAILY, (Reported) Glyburide 2.5 Mg Tablet, 1.25 MG PO DAILY, (Reported) Losartan/Hydrochlorothiazide 1 Each Tablet, 1 EACH PO DAILY, (Reported) Metformin HCl 500 Mg Tablet, 1,000 MG PO BID, (Reported) Psyllium Husk/Ca Carbonate 1 Each Capsule, 3 EACH PO DAILY, (Reported) Quetiapine Fumarate 100 Mg Tablet, 100 MG PO DAILY, (Reported) Quetiapine Fumarate 300 Mg Tablet, 300 MG PO HS, (Reported) Simvastatin 20 Mg Tablet, 20 MG PO HS, (Reported) Tamsulosin HCl 0.4 Mg Cap, 0.8 MG PO DAILY, (Reported) Assessment/Plan Assessment and Plan Problems: (1) Mass of colon Status: Acute Assessment & Plan: 11/26: POD#1, bowel resection for colon Ca, managed by Dr Garcia (2) Non-insulin dependent type 2 diabetes mellitus Status: Chronic Assessment & Plan: 11/26: A1c pending (3) BPH (benign prostatic hyperplasia) Status: Chronic (4) HLD (hyperlipidemia) Status: Chronic Qualifiers: Qualified Codes: E78.5 - Hyperlipidemia, unspecified (5) HTN (hypertension) Status: Chronic Qualifiers: Qualified Codes: I10 - Essential (primary) hypertension (6) DVT prophylaxis Status: Acute Assessment & Plan: - Lovenox when ok with surgery Supervisory-Addendum Brief Verification & Attestation Participated in pt care: history, physical Personally performed: exam, history Care discussed with: Medical Student Procedures: n/a Verification and Attestation of Medical Student E/M Service A medical student performed and documented this service in my presence. I reviewed and verified all information documented by the medical student and made modifications to such information, when appropriate. I personally performed the physical exam and medical decision making. Gris Garrison, Nov 27, 2019,12:44 NASIM MOHAN MED STUDENT Nov 27, 2019 08:58 GRIS GARRISON MD Nov 27, 2019 12:44
[2019-11-27] MEDS ORDERED: NON-FORMULARY MEDICATION 1 EA EA (Folic Acid 0.8 MG) PO SCH (09:00)
[2019-11-27] MEDS ORDERED: NON-FORMULARY MEDICATION 1 EA EA (Fesoterodine Fumarate (Toviaz) 8 MG) PO SCH (09:00)
[2019-11-27] MEDS: TOLTERODINE LA 4 MG (DETROL) CAP PO SCH (09:04)
[2019-11-27] MEDS: FOLIC ACID 1 MG TAB PO SCH (09:04)
[2019-11-27] MEDS: TAMSULOSIN 0.4 MG (FLOMAX) CAP PO SCH (09:04)
[2019-11-27] MEDS: QUEtiapine 100 MG (SEROquel) TAB IMMEDIATE RELEASE PO SCH ×2 (09:04→20:37)
--- NOTE | 2019-11-27 09:22 | Progress Note - Surgery ---
EMMYSHANICE MED STUDENT 11/27/19 0922: Subjective Date Seen by a Provider: Nov 27, 2019 Time Seen by a Provider: 09:00 Subjective/Events-last exam Pt appears much better and in less distress. States he has been having slight lower abdominal pain, but says that might be of MSK origin because it is much different than the pain he was previously having. States he is tolerating diet well and is able to get sleep again. Says his diarrhea has ceased and just had a small amount but other than that claims normal bowel and urinary function. Feels comfortable with going home and continuing plan from Dr. Hay. Review of Systems General: No Chills, No Night Sweats HEENT: Head Aches; No Visual Changes, No Eye Pain Pulmonary: No Dyspnea, No Cough Cardiovascular: No: Chest Pain, Palpitations, Edema Gastrointestinal: Abdominal Pain; No: Nausea, Vomiting Genitourinary: No Dysuria, No Frequency, No Incontinence, No Hematuria Musculoskeletal: other (possible lower abdominal muscle soreness) Neurological: No: Weakness, Numbness, Incoordination, Change in speech, Confusion Focused Exam Respiratory: Chest Non Tender, No Accessory Muscle Use, No Respiratory Distress Cardiovascular: No JVD, Normal Peripheral Pulses Peripheral Pulses: 2+ Dorsalis Pedis (R), 2+ Radial Pulses (R) Skin: normal color, warm/dry Objective Exam Vital Signs Date Time Temp Pulse Resp B/P (MAP) Pulse Ox O2 Delivery O2 Flow Rate FiO2 11/27/19 08:56 36.9 93 18 112/78 (89) 94 Room Air 11/27/19 04:04 36.8 68 18 110/72 (85) 95 Room Air 11/27/19 00:00 36.6 88 18 133/76 (95) 95 Room Air 3.00 3.00 11/26/19 21:00 36.6 11/26/19 20:30 93 Room Air 11/26/19 20:29 36.6 11/26/19 19:15 36.6 85 18 124/76 (92) 93 Room Air 11/26/19 16:00 36.5 84 18 123/76 (92) 94 Room Air 11/26/19 13:17 36.1 88 96 21 11/26/19 12:00 36.1 88 16 134/88 (103) 96 Room Air 11/26/19 10:55 36.2 20 144/89 (107) 98 Room Air 11/26/19 10:55 35.6 80 18 140/81 (100) 94 Room Air 11/26/19 10:55 Room Air 11/26/19 10:55 95 Room Air 11/26/19 10:45 Room Air 11/26/19 10:40 20 142/99 (113) 98 Room Air 11/26/19 10:30 OxyMask 3 11/26/19 10:30 20 126/86 (99) 100 OxyMask 3 11/26/19 10:20 20 116/76 (89) 100 OxyMask 8 11/26/19 10:15 OxyMask 8 11/26/19 10:10 20 116/76 (89) 100 OxyMask 8 11/26/19 10:00 36.2 16 117/76 (90) 100 OxyMask 8 11/26/19 10:00 OxyMask 8 I & O 11/27/19 07:00 Intake Total 1500 ml Output Total 3000 ml Balance -1500 ml Capillary Refill : Less Than 3 SecondsLess Than 3 Seconds General Appearance: No Apparent Distress, WD/WN HEENT: Normal ENT Inspection Neck: Normal Inspection, Supple Respiratory: Chest Non Tender, Lungs Clear, Normal Breath Sounds, No Accessory Muscle Use, No Respiratory Distress Cardiovascular: Regular Rate, Rhythm, No JVD, Normal Peripheral Pulses Gastrointestinal: normal bowel sounds, soft; No guarding, No rebound; tenderness Extremity: Normal Inspection, No Pedal Edema Neurologic/Psychiatric: Alert, Oriented x3, No Motor/Sensory Deficits, Normal Mood/Affect Skin: Normal Color, Warm/Dry Lymphatic: No Adenopathy Results Lab Laboratory Tests 11/27/19 05:57: White Blood Count 8.0, Red Blood Count 4.28L, Hemoglobin 13.4, Hematocrit 39L, Mean Corpuscular Volume 92, Mean Corpuscular Hemoglobin 31, Mean Corpuscular Hemoglobin Concent 34, Red Cell Distribution Width 13.2, Platelet Count 132, Mean Platelet Volume 9.2, Neutrophils (%) (Auto) 88H, Lymphocytes (%) (Auto) 7L, Monocytes (%) (Auto) 5, Eosinophils (%) (Auto) 0, Basophils (%) (Auto) 0, N eutrophils # (Auto) 7.1, Lymphocytes # (Auto) 0.5L, Monocytes # (Auto) 0.4, Eosinophils # (Auto) 0.0, Basophils # (Auto) 0.0, Neutrophils % (Manual) 66, Lymphocytes % (Manual) 10, Monocytes % (Manual) 6, Eosinophils % (Manual) 0, Basophils % (Manual) 0, Band Neutrophils 18, Blood Morphology Comment NORMAL, Sodium Level 133L, Potassium Level 4.5, Chloride Level 98, Carbon Dioxide Level 24, Anion Gap 11, Blood Urea Nitrogen 6L, Creatinine 0.84, Estimat Glomerular Filtration Rate > 60, BUN/Creatinine Ratio 7, Glucose Level 103, Calcium Level 9.1, Corrected Calcium 9.3, Magnesium Level 1.7, Total Bilirubin 0.4, Aspartate Amino Transf (AST/SGOT) 13, Alanine Aminotransferase (ALT/SGPT) 7, Alkaline Phos phatase 44, Total Protein 6.0L, Albumin 3.7 Assessment/Plan Assessment/Plan Admission Diagonsis Colitis Assessment/Plan Bowel Resection Begin introducing fluid diet. DC rosa and slowly introduce ambulation Begin DVT prophylaxis. Clinical Quality Measures DVT/VTE Risk/Contraindication: Risk Factor Score Per Nursin RFS Level Per Nursing on Admit: 4+=Very High LEVIHUNG Hong 11/27/19 1439: SHANICE BOOTH MED STUDENT Nov 27, 2019 09:22 HUNG SIMS Nov 27, 2019 14:39
--- NOTE | 2019-11-27 09:54 | NUR ---
Pt lives in an Adult Foster home locally and receives services from [facility] services. Discussed continued care plans with Brigid COLEY at [facility] which will be discharge back to his home. She plans to visit pt today. Pt verbally responsive and seems to be doing OK. She also plans to provide pt's guardian's contact number. will follow.
--- NOTE | 2019-11-27 10:41 | Physical Therapy Evaluation ---
PT Evaluation-General Medical Diagnosis Admission Date Nov 26, 2019 at 06:05 Medical Diagnosis: s/p partial bowel resection Onset Date: Nov 26, 2019 Therapy Diagnosis Therapy Diagnosis: weakness Precautions Precautions/Isolations: Fall Prevention, Standard Precautions Weight Bear Status Right Lower Extremity: Right Weight Bearing/Tolerated Left Lower Extremity: Left Weight Bearing/Tolerated Referral Physician: Dr. Garcia Reason for Referral: Evaluation/Treatment Medical History Pertinent Medical History: DM, HTN Current History pt post partial bowel resection 11/26/2019 Reviewed History: Yes Social History Home: Current Living Status: pt lives in an adult foster home Prior Prior Level of Function SCALE: Activities may be completed with or without assistive devices. 3-Jhsjpddlxl-ysiqsez completes the activity by him/herself with no assistance fr om a helper. 5-Set-up or Clean-up Assistance-helper sets up or cleans up; patient completes activity. [place] assists only prior to or following the activity. 4-Supervision or Touching Assistance-helper provides verbal cues and/or touching/steadying and/or contact guard assistance as patient completes activity. Assistance may be provided throughout the activity or intermittently. 3-Partial/Moderate Assistance-helper does LESS THAN HALF the effort. [place] lifts, holds or supports trunk or limbs, but provides less than half the effort. 2-Substantial/Maximal Assistance-helper does MORE THAN HALF the effort. [place] lifts or holds trunk or limbs and provides more than half the effort. 4-Bacvnxnzm-snkyua does ALL the effort. Patient does none of the effort to complete the activity. Or, the assistance of 2 or more helpers is required for the patient to complete the activity. If activity was not attempted, code reason: 7-Patient Refused. 9-Not Applicable-not attempted and the patient did not perform the activity before the current illness, exacerbation or injury. 10-Not Attempted due to Environmental Limitations-(lack of equipment, weather restraints, etc.). 88-Not Attempted due to Medical Conditions or Safety Concerns. Bed Mobility: 6 Transfers (B,C,W/C): 6 Gait: 6 Stairs: 6 PT Evaluation-Current Subjective Pt presents sitting up in chair upon arrival to room, agreeable to therapy at this time. Pt rates pain levels 7/10 at incision site. Pt/Family Goals return home Objective Patient Orientation: Person, MR Attachments: Betancur Catheter, IV ROM/Strength ROM Lower Extremities WFL Strength Lower Extremities 4/5 BLE Integumentary/Posture Integumentary refer to nursing notes Bladder Incontinence: Betancur Cath Neuromuscular (Tone, Coordination, Reflexes) grossly intact Sensory Vision: Functional Hearing: Functional Hand Dominance: Right Sensation Right Lower Extremit: Intact Sensation Left Lower Extremity: Intact Transfers Sit to Stand (QC): 4 cueing for hand placement Gait Does the Patient Walk?: Yes Mode of Locomotion: Walk Anticipated Mode of Locomotion: Walk Walk 50 ft with 2 Turns(QC): 4 Gait Assistive Device: FWW Comments/Gait Description Pt ambulates 150' with SBA. Pt requires occasional cueing for walker mgmt, as he sometimes runs into cords instead of steering clear of them. No gross LOB noted. Balance Sitting Static: Normal Sitting Dynamic: Normal Standing Static: Normal Standing Dynamic: Normal Assessment/Needs Pt is a 54 year old male s/p partial bowel resection. Pt with problem list of increased pain, decreased activity tolerance, and decreased balance and strength. Pt would benefit from skilled PT to address above mentioned limit ations to ensure safety upon return home and to restore PLOF. Rehab Potential: Good PT Personal Lines Underwriter Goals Personal Lines Underwriter Goals PT Personal Lines Underwriter Goals Time Frame: Dec 11, 2019 Sit to Lying (QC): 6 Sit to Stand (QC): 6 Walk 150 ft (QC): 6 PT Plan Problem List Problem List: Activity Tolerance, Functional Strength, Safety, Balance, Gait, Transfer, Bed Mobility, ROM Treatment/Plan Treatment Plan: Continue Plan of Care Treatment Plan: Bed Mobility, Education, Functional Activity Vida, Functional Strength, Group Therapy, Gait, Safety, Therapeutic Exercise, Transfers Treatment Duration: Dec 11, 2019 Frequency: 6 times per week Estimated Hrs Per Day: .25 hour per day Patient and/or Family Agrees t: Yes Time/GCodes Time In: 927 Time Out: 950 Total Billed Treatment 1 visit EvalHaleighC (10') GT (13') CHICHI SINGH PT Nov 27, 2019 10:41
[2019-11-27 12:00] VITALS: BP 115/73
[2019-11-27] MEDS: ENOXAPARIN 40 MG/0.4 ML (LOVENOX) SYR SC SCH (13:25)
--- NOTE | 2019-11-27 14:41 | Occupational Therapy Eval ---
OT Evaluation-General/PLF Medical Diagnosis Admission Date Nov 26, 2019 at 06:05 Medical Diagnosis: s/p partial bowel resection Onset Date: Nov 26, 2019 Therapy Diagnosis Therapy Diagnosis: impaired ADLs/functional mobility Precautions Precautions/Isolations: Fall Prevention, Standard Precautions Referral Physician: Dr. Garcia Referral Reason: Evaluation/Treatment Medical History Pertinent Medical History: DM, HTN Additional Medical History MR, HTN, DM, dysplagia in colon, BPH, hyperlipidemia Current History s/p R colon resection 11/26/2019 Social History Home: adult foster home ADL-Prior Level of Function SCALE: Activities may be completed with or without assistive devices. 8-Chnbdxqkgr-qdxbogq completes the activity by him/herself with no assistance from a helper. 5-Set-up or Clean-up Assistance-helper sets up or cleans up; patient completes activity. [place] assists only prior to or following the activity. 4-Supervision or Touching Assistance-helper provides verbal cues and/or touching/steadying and/or contact guard assistance as patient completes activity. Assistance may be provided throughout the activity or intermittently. 3-Partial/Moderate Assistance-helper does LESS THAN HALF the effort. [place] lifts, holds or supports trunk or limbs, but provides less than half the effort. 2-Substantial/Maximal Assistance-helper does MORE THAN HALF the effort. [place] lifts or holds trunk or limbs and provides more than half the effort. 3-Oiqiakrae-szlqiy does ALL the effort. Patient does none of the effort to complete the activity. Or, the assistance of 2 or more helpers is required for the patient to complete the activity. If activity was not attempted, code reason: 7-Patient Refused. 9-Not Applicable-not attempted and the patient did not perform the activity before the current illness, exacerbation or injury. 10-Not Attempted due to Environmental Limitations-(lack of equipment, weather restraints, etc.). 88-Not Attempted due to Medical Conditions or Safety Concerns. ADL PLOF Comments Per chart review, pt lives at an adult foster home and receives services from [employer]. 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 Pt does not verbalize pain rating during tx. Mental Status/Objective Patient Orientation: Person, MR Current Glasses/Contacts: No Hand Dominance: Right Upper Extremity ROM WFL, BUE shoulder flexion to approx 150 degrees, Upper Extremity Coordination WFL Upper Extremity Sensation WFL Upper Extremity Strength grossly 4/5 BUEs Other Treatments Pt seated in recliner, OT introduced self and purpose of OT. Pt provided PLOF and home set up to his ability, OT kept questions simple for pt. Pt then participated in UE screen. Pt reports being able to complete bathing, dressing and toileting independently but he does have meals provided to him. 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 OT educated pt on POC while he is admitted to the hospit al, he verbalized agreement. Pt just wants to rest at this time. Post OT Tx, pt in recliner, call light in reach and all needs met. Education OT Patient Education: Correct positioning, Energy conservation, Modified ADL techniques, Progress toward Goal/Update tx plan, Purpose of tx/functional activities Teaching Recipient: Patient Teaching Methods: Discussion Response to Teaching: Verbalize Understanding OT Jail Goals Jail Goals Time Frame: Dec 04, 2019 Eating (QC): 6 Oral Hygiene (QC): 6 Toileting Hygiene (QC): 6 Shower/Bathe Self (QC): 6 Upper Body Dressing (QC): 6 Lower Body Dressing (QC): 6 On/Off Footwear (QC): 6 1=Demonstrate adherence to instructed precautions during ADL tasks. 2=Patient will verbalize/demonstrate understanding of assistive devices/modifications for ADL. 3=Patient will improve strength/tolerance for activity to enable patient to perform ADL's. OT Education/Plan Problem List/Assessment Assessment: Decreased Activ Tolerance, Decreased UE Strength, Impaired I ADL's, Impaired Self-Care Skills Discharge Recommendations Plan/Recommendations: Continue POC Treatment Plan/Plan of Care Patient would benefit from OT for education, treatment and training to promote independence in ADL's, mobility, safety and/or upper extremity function for ADL's. Plan of Care: ADL Retraining, Functional Mobility, UE Funct Exercise/Act Treatment Duration: Dec 04, 2019 Frequency: 5 times per week Rehab Potential: Good Time/GCodes Start Time: 13:25 Stop Time: 13:35 Total Time Billed (hr/min): 10 Billed Treatment Time 1, MARLENE EUCEDA OT Nov 27, 2019 14:41
[2019-11-27 15:54] VITALS: BP 112/78
[2019-11-27 19:45] VITALS: BP 104/69
[2019-11-27] MEDS: HYDROcodone/APAP 5 MG/325 MG (LORTAB) TAB PO PRN (20:37)
[2019-11-27] MEDS: DIVALPROEX 500 MG DELAYED RELEASE (DEPAKOTE) TAB PO SCH (21:00)
[2019-11-28] VITALS: BP 122/74
[2019-11-28] MEDS: NS IV 1000 ML 1,000 ML IV SCH ×3 (03:49→19:48)
[2019-11-28 04:00] VITALS: BP 117/78
[2019-11-28 06:02] LABS: BASOPHILS % (AUTO) 0 % (0-10); EOSINOPHILS % (AUTO) 0 % (0-10); HEMATOCRIT 35 % (40-54); HEMOGLOBIN 12.1 G/DL (13.3-17.7); LYMPHOCYTES # (AUTO) 0.7 X 10^3 (1.0-4.0); LYMPHOCYTES % (AUTO) 8 % (12-44); MEAN CORPUSCULAR HEMOGLOBIN 32 PG (25-34); MEAN CORPUSCULAR HGB CONC 35 G/DL (32-36); MEAN CORPUSCULAR VOLUME 93 FL (80-99); MEAN PLATELET VOLUME 9.4 FL (7.4-10.4); MONOCYTES # (AUTO) 0.5 X 10^3 (0.0-1.0); MONOCYTES % (AUTO) 6 % (0-12); NEUTROPHILS # (AUTO) 7.5 X 10^3 (1.8-7.8); NEUTROPHILS % (AUTO) 86 % (42-75); PLATELET COUNT 137 10^3/uL (130-400); RED CELL DISTRIBUTION WIDTH 13.3 % (10.0-14.5); WHITE BLOOD COUNT 8.7 10^3/uL (4.3-11.0)
[2019-11-28 06:20] LABS: BUN/CREATININE RATIO 8; CALCIUM 8.8 MG/DL (8.5-10.1); CARBON DIOXIDE 25 MMOL/L (21-32); CHLORIDE 101 MMOL/L (98-107); GFR ESTIMATED > 60; GLUCOSE 117 MG/DL (70-105); MAGNESIUM 1.8 MG/DL (1.6-2.4); SODIUM 134 MMOL/L (135-145)
[2019-11-28 07:30] VITALS: BP 134/75
--- NOTE | 2019-11-28 08:00 | NUR ---
TEMP 100.2. DR. HURLEY. WORKED WITH PT ON IS, BUT UNABLE TO PERFORM PROPERLY.
--- NOTE | 2019-11-28 08:35 | Progress Note - Surgery ---
EMMYSHANICE MED STUDENT 11/28/19 0835: Subjective Date Seen by a Provider: Nov 28, 2019 Time Seen by a Provider: 08:15 Subjective/Events-last exam Pt still in incision site pain, but no other pain stated. Low grade fever noted this morning. Pt incision site clean and dry with no visible edema or erythema. Tolerating introduction of foods well. Claims no BM or gas lately. Still not using IS well. Objective Exam Vital Signs Date Time Temp Pulse Resp B/P (MAP) Pulse Ox O2 Delivery O2 Flow Rate FiO2 11/28/19 07:30 37.9 103 20 134/75 (94) 95 Room Air 11/28/19 04:00 37.0 101 18 117/78 (91) 95 Room Air 11/28/19 00:00 36.9 86 18 122/74 (90) 91 Room Air 11/27/19 21:26 Room Air 11/27/19 19:45 37.0 103 20 104/69 (81) 96 Room Air 11/27/19 15:54 36.9 103 18 112/78 (89) 98 Room Air 11/27/19 14:08 Room Air 11/27/19 12:00 36.8 97 20 115/73 (87) 93 Room Air 11/27/19 09:00 Room Air 3.00 11/27/19 08:56 36.9 93 18 112/78 (89) 94 Room Air I & O 11/28/19 07:00 Intake Total 3840 ml Output Total 2400 ml Balance 1440 ml Capillary Refill : Less Than 3 SecondsLess Than 3 Seconds General Appearance: No Apparent Distress (sitting in chair), WD/WN HEENT: PERRL/EOMI, Normal ENT Inspection Neck: Normal Inspection, Supple Respiratory: Chest Non Tender, No Accessory Muscle Use, No Respiratory Distress Cardiovascular: No Edema, No JVD Peripheral Pulses: 2+ Dorsalis Pedis (R), 2+ Radial Pulses (R) Gastrointestinal: soft; No guarding, No rebound; tenderness (incisional, c/d/i no erythema) Extremity: Normal Inspection, No Pedal Edema Neurologic/Psychiatric: Alert, Oriented x3, No Motor/Sensory Deficits Skin: Normal Color, Warm/Dry Lymphatic: No Adenopathy Results Lab Laboratory Tests 11/27/19 23:58: Glucometer 120H 11/28/19 05:10: Glucometer 135H 11/28/19 05:33: White Blood Count 8.7, Red Blood Count 3.76L, Hemoglobin 12.1L, Hematocrit 35L, Mean Corpuscular Volume 93, Mean Corpuscular Hemoglobin 32, Mean Corpuscular Hemoglobin Concent 35, Red Cell Distribution Width 13.3, Platelet Count 137, M patrick Platelet Volume 9.4, Neutrophils (%) (Auto) 86H, Lymphocytes (%) (Auto) 8L, Monocytes (%) (Auto) 6, Eosinophils (%) (Auto) 0, Basophils (%) (Auto) 0, Neutrophils # (Auto) 7.5, Lymphocytes # (Auto) 0.7L, Monocytes # (Auto) 0.5, Eosinophils # (Auto) 0.0, Basophils # (Auto) 0.0, Sodium Level 134L, Potassium Level 4.0, Chloride Level 101, Carbon Dioxide Level 25, Anion Gap 8, Blood Urea Nitrogen 6L, Creatinine 0.80, Estimat Glomerular Filtration Rate > 60, BUN/Creatinine Ratio 8, Glucose Level 117H, Calcium Level 8.8, Magnesium Level 1.8 Microbiology 11/26/19 MRSA Screen - Final, Complete MRSA not isolated Assessment/Plan Assessment/Plan Assessment/Plan s/p lap hand assisted right colon resection for ascending colon mass pain control increase activity not using IS well, will have respiratory therapy to help lovenox/scd's for dvt prophylaxis pt eval and treat dc rosa clear liquid diet right colon resection low grade fever monitor fever and possible causes continue increase of activity and diet continue assistance with learning IS monitor Hgb changes for possible bleeding Clinical Quality Measures DVT/VTE Risk/Contraindication: Risk Factor Score Per Nursin RFS Level Per Nursing on Admit: 4+=Very High AL GARCIA DO 11/28/19 2214: Subjective Subjective/Events-last exam Pain controlled. Ambulating some. Not using IS very well. No flatus or bm. Tolerating clears. Low grade fever. Denies n/v sweats chills shortness of breath or chest pain. Objective Exam General Appearance: No Apparent Distress (sitting in chair), WD/WN HEENT: Normal ENT Inspection Neck: Normal Inspection, Supple Respiratory: Chest Non Tender, No Accessory Muscle Use, No Respiratory Distress Cardiovascular: Regular Rate, Rhythm, No Edema Gastrointestinal: distended (minimal); No guarding; tenderness (incisional, c/d/i no erythema) Extremity: Normal Inspection Neurologic/Psychiatric: Alert, Oriented x3 Skin: Normal Color, Warm/Dry Lymphatic: No Adenopathy Assessment/Plan Assessment/Plan Assessment/Plan s/p lap hand assisted right colon resection for ascending colon mass low grade fever likely atelectasis chest x ray encouraged to use IS Lovenox scd's for dvt prophylaxis await bowel function Supervisory-Addendum Brief Verification & Attestation Participated in pt care: history, MDM, physical Personally performed: exam, history, MDM, supervision of care Care discussed with: Medical Student Procedures: n/a Results interpretation: Verified all documentation Verification and Attestation of Medical Student E/M Service A medical student performed and documented this service in my presence. I reviewed and verified all information documented by the medical student and made modifications to such information, when appropriate. I personally performed the physical exam and medical decision making. Al Garcia, Nov 28, 2019,16:57 SHANICE BOOTH MED STUDENT Nov 28, 2019 08:35 AL GARCIA DO Nov 28, 2019 16:58
[2019-11-28] MEDS: QUEtiapine 100 MG (SEROquel) TAB IMMEDIATE RELEASE PO SCH ×2 (08:36→19:48)
[2019-11-28] MEDS: FOLIC ACID 1 MG TAB PO SCH (08:36)
[2019-11-28] MEDS: TAMSULOSIN 0.4 MG (FLOMAX) CAP PO SCH (08:36)
[2019-11-28] MEDS: TOLTERODINE LA 4 MG (DETROL) CAP PO SCH (08:36)
--- NOTE | 2019-11-28 09:41 | Physical Therapy Daily Note ---
PT Daily Note-Current Subjective Pt is agreeable to therapy this morning. Mental Status Patient Orientation: Person, Place, Situation Attachments: IV Transfers SCALE: Activities may be completed with or without assistive devices. 7-Gmqtdlxpek-tjrittz completes the activity by him/herself with no assistance from a helper. 5-Set-up or Clean-up Assistance-helper sets up or cleans up; patient completes activity. [place] assists only prior to or following the activity. 4-Supervision or Touching Assistance-helper provides verbal cues and/or touching/steadying and/or contact guard assistance as patient completes activity. Assistance may be provided throughout the activity or intermittently. 3-Partial/Moderate Assistance-helper does LESS THAN HALF the effort. [place] lifts, holds or supports trunk or limbs, but provides less than half the effort. 2-Substantial/Maximal Assistance-helper does MORE THAN HALF the effort. [place] lifts or holds trunk or limbs and provides more than half the effort. 5-Jvjovcpqk-ajvmos does ALL the effort. Patient does none of the effort to complete the activity. Or, the assistance of 2 or more helpers is required for the patient to complete the activity. If activity was not attempted, code reason: 7-Patient Refused. 9-Not Applicable-not attempted and the patient did not perform the activity before the current illness, exacerbation or injury. 10-Not Attempted due to Environmental Limitations-(lack of equipment, weather restraints, etc.). 88-Not Attempted due to Medical Conditions or Safety Concerns. Roll Left & Right (QC): 4 Sit to Lying (QC): 4 Lying to Sitting/Side of Bed(Q: 5 Sit to Stand (QC): 5 Chair/Bze-vu-Kvyen Xfer(QC): 5 Weight Bearing Right Lower Extremity: Right Weight Bearing/Tolerated Left Lower Extremity: Left Weight Bearing/Tolerated Gait Training Does the Patient Walk?: Yes Distance: 150ft Walk 10 feet (QC): 5 Walk 50 ft with 2 Turns(QC): 5 Walk 150 ft (QC): 5 Gait Persons Needed: 1 Gait Assistive Device: FWW Wheelchair Training Does the Pt Use a Wheelchair?: No Assessment Current Status: Good Progress Pt is safe with transitions and turning with gait. He was given the option of sitting up in the chair, but he opted to return to bed. PT Care Home Goals Chief Service Dispatcher Goals PT Chief Service Dispatcher Goals Time Frame: Dec 11, 2019 Sit to Lying (QC): 6 Sit to Stand (QC): 6 Walk 150 ft (QC): 6 PT Plan Treatment/Plan Treatment Plan: Continue Plan of Care Treatment Plan: Bed Mobility, Education, Functional Activity Vida, Functional Strength, Group Therapy, Gait, Safety, Therapeutic Exercise, Transfers Treatment Duration: Dec 11, 2019 Frequency: 6 times per week Estimated Hrs Per Day: .25 hour per day Patient and/or Family Agrees t: Yes Time/GCodes Time In: 854 Time Out: 909 Total Billed Treatment Time: 15 Total Billed Treatment 1, gt 15 DAVID JEFFERSON PT Nov 28, 2019 09:41
[2019-11-28] MEDS: ENOXAPARIN 40 MG/0.4 ML (LOVENOX) SYR SC SCH (11:48)
--- NOTE | 2019-11-28 11:50 | Progress Note - Hospitalist ---
Subjective HPI/CC On Admission Date Seen by Provider: Nov 28, 2019 Time Seen by Provider: 10:15 Subjective/Events-last exam Patient complains of abdominal discomfort. Nursing staff notes that he is unable to do his incentive spirometry and that his temperature is 102. Objective Exam Vital Signs Vital Signs Date Time Temp Pulse Resp B/P (MAP) Pulse Ox O2 Delivery O2 Flow Rate FiO2 11/28/19 09:00 Room Air 11/28/19 07:30 37.9 103 20 134/75 (94) 95 11/27/19 09:00 3.00 11/26/19 13:17 21 Capillary Refill : Less Than 3 SecondsLess Than 3 Seconds General Appearance: Mild Distress HEENT: Normal ENT Inspection Neck: Full Range of Motion, Normal Inspection, Non Tender Respiratory: Chest Non Tender, Lungs Clear, Normal Breath Sounds, No Accessory Muscle Use, No Respiratory Distress Cardiovascular: Regular Rate, Rhythm, No Edema, No Gallop, No Murmur, Normal Peripheral Pulses Gastrointestinal: Abnormal Bowel Sounds, Distended, Tenderness Rectal: Deferred Extremity: Normal Capillary Refill, Normal Range of Motion, Non Tender Results/Procedures Lab Laboratory Tests 11/28/19 05:33 Patient resulted labs reviewed. Assessment/Plan Assessment/Plan (1) Mass of colon Status: Acute Assessment & Plan: 11/27:- Partial resection yesterday by Dr Garcia, asked to see patient for medical management-patient recovering somewhat slowly and is unable to perform incentive spirometry-because of low-grade temperature chest x-rays obtained patient encouraged to ambulate (2) Non-insulin dependent type 2 diabetes mellitus Status: Chronic Assessment & Plan: - A1c pending, will restart home meds when taking PO 11/27: Patient had been on glyburide/metformin and currently is not taking enough by mouth to restart medications blood sugars are in the low 100s (3) HTN (hypertension) Status: Chronic Assessment & Plan: - Currently holding meds due to normotension 11/27 patient remains normotensive Qualifiers: Hypertension type: essential hypertension Qualified Codes: I10 - Essential (primary) hypertension (4) HLD (hyperlipidemia) Status: Chronic Assessment & Plan: - Will restart statin once taking PO Qualifiers: Hyperlipidemia type: unspecified Qualified Codes: E78.5 - Hyperlipidemia, unspecified (5) Mild cognitive impairment Status: Chronic (6) BPH (benign prostatic hyperplasia) Status: Chronic (7) DVT prophylaxis Status: Acute Assessment & Plan: - SCDs, would recommend starting lovenox when ok with surgery 11/27: Restart today Clinical Quality Measures DVT/VTE Risk/Contraindication: Risk Factor Score Per Nursin RFS Level Per Nursing on Admit: 4+=Very High FARRUKH VENCES MD Nov 28, 2019 11:50
[2019-11-28 12:05] VITALS: BP 128/76
--- NOTE | 2019-11-28 12:34 | Diagnostic Imaging Report ---
EXAMINATION: Chest 1 view HISTORY: Fever COMPARISON: 06/05/2010 FINDINGS: Lung volumes are small and there is mild bibasilar atelectasis. No edema or pneumonia. No pleural effusion or pneumothorax. IMPRESSION: 1. Small lung volumes with mild bibasilar atelectasis. Dictated by: Dictated on workstation # [id number]
[2019-11-28 16:03] VITALS: BP 119/78
[2019-11-28 19:44] VITALS: BP 122/79
[2019-11-28] MEDS: DIVALPROEX 500 MG DELAYED RELEASE (DEPAKOTE) TAB PO SCH (19:48)
[2019-11-29] VITALS (8 sets, daily range): BP systolic 125–149; BP diastolic 71–94
[2019-11-29] MEDS: NS IV 1000 ML 1,000 ML IV SCH ×3 (03:51→19:55)
[2019-11-29 05:30] LABS: HEMOGLOBIN 12.6 G/DL (13.3-17.7); MEAN PLATELET VOLUME 8.9 FL (7.4-10.4); RED CELL DISTRIBUTION WIDTH 13.4 % (10.0-14.5); WHITE BLOOD COUNT 12.2 10^3/uL (4.3-11.0)
[2019-11-29 05:44] LABS: BUN/CREATININE RATIO 17; CALCIUM 8.2 MG/DL (8.5-10.1); CARBON DIOXIDE 20 MMOL/L (21-32); CHLORIDE 107 MMOL/L (98-107); CREATININE SERUM 0.78 MG/DL (0.60-1.30); GFR ESTIMATED > 60; GLUCOSE 214 MG/DL (70-105); MAGNESIUM 1.7 MG/DL (1.6-2.4); SODIUM 133 MMOL/L (135-145)
--- NOTE | 2019-11-29 08:01 | Progress Note - Surgery ---
EMMYSHANICE MED STUDENT 11/29/19 0801: Subjective Date Seen by a Provider: Nov 29, 2019 Time Seen by a Provider: 07:35 Subjective/Events-last exam Pt has been tolerating liquids well and cough has improved. Still struggling with use of IS. Incision site is warm and dry with no visible edema. Tenderness at incision site . Hasn't noticed bowel function or flatulence. Objective Exam Vital Signs Date Time Temp Pulse Resp B/P (MAP) Pulse Ox O2 Delivery O2 Flow Rate FiO2 11/29/19 04:00 36.4 97 18 136/93 (107) 94 Room Air 11/29/19 00:00 36.6 94 18 129/88 (102) 96 Room Air 11/28/19 20:00 Room Air 11/28/19 19:44 36.8 96 20 122/79 (93) 96 Room Air 11/28/19 19:33 Room Air 11/28/19 16:03 37.2 100 18 119/78 (92) 93 Room Air 11/28/19 12:05 37.5 98 18 128/76 (93) 96 Room Air 11/28/19 09:00 Room Air I & O 11/29/19 07:00 Intake Total 3940 ml Output Total 725 ml Balance 3215 ml Capillary Refill : Less Than 3 SecondsLess Than 3 Seconds General Appearance: No Apparent Distress (sitting in chair), WD/WN HEENT: Normal ENT Inspection Neck: Normal Inspection, Supple Respiratory: Chest Non Tender, No Accessory Muscle Use, No Respiratory Distress Cardiovascular: Regular Rate, Rhythm, No Edema Peripheral Pulses: 2+ Dorsalis Pedis (R), 2+ Radial Pulses (R) Gastrointestinal: distended (minimal); No guarding; tenderness (incisional, c/d/i no erythema) Extremity: Normal Inspection Neurologic/Psychiatric: Alert, Oriented x3 Skin: Normal Color, Warm/Dry Lymphatic: No Adenopathy Results Lab Laboratory Tests 11/29/19 05:14: White Blood Count 12.2H, Red Blood Count 4.05L, Hemoglobin 12.6L, Hematocrit 37L , Mean Corpuscular Volume 91, Mean Corpuscular Hemoglobin 31, Mean Corpuscular Hemoglobin Concent 34, Red Cell Distribution Width 13.4, Platelet Count 151, Mean Platelet Volume 8.9, Sodium Level 133L, Potassium Level 4.0, Chloride Level 107, Carbon Dioxide Level 20L, Anion Gap 6, Blood Urea Nitrogen 13, Creatinine 0.78, Estimat Glomerular Filtration Rate > 60, BUN/Creatinine Ratio 17, Glucose Level 214H, Calcium Level 8.2L, Magnesium Level 1.7 Microbiology 11/26/19 MRSA Screen - Final, Complete MRSA not isolated Assessment/Plan Assessment/Plan Assessment/Plan s/p lap hand assisted right colon resection for ascending colon mass low grade fever determined to be mild atelectasis encouraged to continue use of IS increase ambulation Lovenox scd's for dvt prophylaxis await bowel function Clinical Quality Measures DVT/VTE Risk/Contraindication: Risk Factor Score Per Nursin RFS Level Per Nursing on Admit: 4+=Very High AL GARCIA DO 11/29/19 1054: Subjective Subjective/Events-last exam Pain controlled. Tolerating liquids. Had a small bowel movement, but no flatus. Abdomen more distended. Denies n/v fever sweats chills shortness of breath or chest pain. Hard time using IS. Ambulating some. Objective Exam General Appearance: No Apparent Distress, WD/WN HEENT: PERRL/EOMI, Normal ENT Inspection Neck: Normal Inspection, Supple Respiratory: Chest Non Tender, No Accessory Muscle Use, No Respiratory Distress Cardiovascular: Regular Rate, Rhythm, No Edema Gastrointestinal: distended; No guarding, No rebound; tenderness (incisional, c/d/i no erythema) Extremity: Normal Inspection Neurologic/Psychiatric: Alert, Oriented x3 Skin: Normal Color, Warm/Dry Lymphatic: No Adenopathy Assessment/Plan Assessment/Plan Assessment/Plan s/p lap hand assisted right colon resection for ascending colon mass abdominal distention ambulate IS await bowel function clears lovenox/scd's for dvt prophylaxis Supervisory-Addendum Brief Verification & Attestation Participated in pt care: history, MDM, physical Personally performed: exam, history, MDM, supervision of care Care discussed with: Medical Student Procedures: n/a Results interpretation: Verified all documentation Verification and Attestation of Medical Student E/M Service A medical student performed and documented this service in my presence. I reviewed and verified all information documented by the medical student and made modifications to such information, when appropriate. I personally performed the physical exam and medical decision making. Al Garcia, Nov 29, 2019,11:09 SHANICE BOOTH MED STUDENT Nov 29, 2019 08:01 AL GARCIA DO Nov 29, 2019 10:54
[2019-11-29] MEDS: TOLTERODINE LA 4 MG (DETROL) CAP PO SCH (08:39)
[2019-11-29] MEDS: TAMSULOSIN 0.4 MG (FLOMAX) CAP PO SCH (08:39)
[2019-11-29] MEDS: FOLIC ACID 1 MG TAB PO SCH (08:39)
[2019-11-29] MEDS: QUEtiapine 100 MG (SEROquel) TAB IMMEDIATE RELEASE PO SCH ×2 (08:39→19:55)
--- NOTE | 2019-11-29 09:00 | NUR ---
ABD WITH INCREASED DISTENTION. DR. VIEYRA HERE AND AWARE. AMBULATED IN HALLS AND SITTING IN CHAIR.
--- NOTE | 2019-11-29 11:00 | NUR ---
DR. VENCES NOTIFIED OF INCREASED BLOOD GLUCOSE LEVELS AND ELEVATED B/P THIS AM. ORDERS REC'D.
--- NOTE | 2019-11-29 12:55 | Progress Note - Hospitalist ---
Subjective HPI/CC On Admission Date Seen by Provider: Nov 29, 2019 Time Seen by Provider: 11:30 Subjective/Events-last exam Patient has been walking a lot in the halls. He had one small bowel movement yesterday that was felt to be just residual from preop. He does have a great deal of abdominal distention however he is had no vomiting. White count was up just a little today Objective Exam Vital Signs Vital Signs Date Time Temp Pulse Resp B/P (MAP) Pulse Ox O2 Delivery O2 Flow Rate FiO2 11/29/19 11:27 37.4 96 18 138/83 (101) 94 Room Air 11/27/19 09:00 3.00 11/26/19 13:17 21 Capillary Refill : Less Than 3 SecondsLess Than 3 Seconds General Appearance: No Apparent Distress, WD/WN HEENT: Normal ENT Inspection, Pharynx Normal Neck: Full Range of Motion, Normal Inspection, Non Tender, Supple Respiratory: Chest Non Tender, Lungs Clear, Normal Breath Sounds, No Accessory Muscle Use, No Respiratory Distress Cardiovascular: Regular Rate, Rhythm, No Edema, No Gallop, No JVD, No Murmur Gastrointestinal: Abnormal Bowel Sounds, Distended, Tenderness Rectal: Deferred Extremity: No Pedal Edema Results/Procedures Lab Laboratory Tests 11/29/19 05:14 Patient resulted labs reviewed. Assessment/Plan Assessment and Plan Assess & Plan/Chief Complaint Postop day number 3 excision of a colon mass Hypertension we'll restart losartan holding HCTZ part Type II diabetes we'll start sliding scale insulin Increased abdominal distention consider getting a KUB and upright however deann webber is asymptomatic and will continue to walk. Mild mental retardation stable Clinical Quality Measures DVT/VTE Risk/Contraindication: Risk Factor Score Per Nursin RFS Level Per Nursing on Admit: 4+=Very High FARRUKH VENCES MD Nov 29, 2019 12:55
--- NOTE | 2019-11-29 13:00 | NUR ---
REMAINS IN CHAIR. TEMP 37.8. WORKED INTENSELY WITH COUGHING AND DEEP BREATHING. LARGE AMOUNT WHITE PHLEGM COUGHED UP. EILEEN WELL.
[2019-11-29] MEDS: ENOXAPARIN 40 MG/0.4 ML (LOVENOX) SYR SC SCH (13:05)
[2019-11-29] MEDS: LOSARTAN 50 MG (COZAAR) TAB PO SCH (13:05)
[2019-11-29] MEDS: inSUlin ASPART (NovoLOG) 1 UNIT/0.01 ML (CHARGE PER UNIT) SC SCH ×2 (17:02→21:08)
[2019-11-29] MEDS: DIVALPROEX 500 MG DELAYED RELEASE (DEPAKOTE) TAB PO SCH (19:55)
[2019-11-30] MEDS: NS IV 1000 ML 1,000 ML IV SCH ×3 (03:57→20:03)
[2019-11-30 04:15] VITALS: BP 138/80
[2019-11-30] MEDS: inSUlin ASPART (NovoLOG) 1 UNIT/0.01 ML (CHARGE PER UNIT) SC SCH ×4 (05:50→21:02)
[2019-11-30 06:07] LABS: HEMOGLOBIN 11.6 G/DL (13.3-17.7); MEAN PLATELET VOLUME 9.1 FL (7.4-10.4); RED CELL DISTRIBUTION WIDTH 13.3 % (10.0-14.5); WHITE BLOOD COUNT 10.6 10^3/uL (4.3-11.0)
[2019-11-30 06:15] LABS: CHLORIDE 105 MMOL/L (98-107); POTASSIUM 3.9 MMOL/L (3.6-5.0); SODIUM 134 MMOL/L (135-145)
[2019-11-30 06:16] LABS: CALCIUM 8.6 MG/DL (8.5-10.1)
[2019-11-30 06:17] LABS: GLUCOSE 143 MG/DL (70-105)
[2019-11-30 06:18] LABS: CARBON DIOXIDE 20 MMOL/L (21-32)
[2019-11-30 06:20] LABS: GFR ESTIMATED > 60
[2019-11-30 06:21] LABS: BUN/CREATININE RATIO 19
[2019-11-30 06:23] LABS: MAGNESIUM 1.8 MG/DL (1.6-2.4)
[2019-11-30 07:41] VITALS: BP 146/95
--- NOTE | 2019-11-30 08:42 | Physical Therapy Daily Note ---
PT Daily Note-Current Subjective Patient in recliner pre tx, agrees to PT, states he has a little pain in his abdomen but doesn't rate it. Appearance Patient in bed post tx with nurse call, phone, tray, all needs met. Bed alarm on. Mental Status Patient Orientation: Person Attachments: IV Transfers SCALE: Activities may be completed with or without assistive devices. 6-Lpcvqhawsx-kjwlknb completes the activity by him/herself with no assistance from a helper. 5-Set-up or Clean-up Assistance-helper sets up or cleans up; patient completes activity. [place] assists only prior to or following the activity. 4-Supervision or Touching Assistance-helper provides verbal cues and/or touching/steadying and/or contact guard assistance as patient completes activity. Assistance may be provided throughout the activity or intermittently. 3-Partial/Moderate Assistance-helper does LESS THAN HALF the effort. [place] lifts, holds or supports trunk or limbs, but provides less than half the effort. 2-Substantial/Maximal Assistance-helper does MORE THAN HALF the effort. [place] lifts or holds trunk or limbs and provides more than half the effort. 5-Coaatqard-pkoglz does ALL the effort. Patient does none of the effort to complete the activity. Or, the assistance of 2 or more helpers is required for the patient to complete the activity. If activity was not attempted, code reason: 7-Patient Refused. 9-Not Applicable-not attempted and the patient did not perform the activity before the current illness, exacerbation or injury. 10-Not Attempted due to Environmental Limitations-(lack of equipment, weather restraints, etc.). 88-Not Attempted due to Medical Conditions or Safety Concerns. Roll Left & Right (QC): 6 Sit to Lying (QC): 6 Sit to Stand (QC): 5 Chair/Fpt-tl-Cmhbo Xfer(QC): 5 Weight Bearing Right Lower Extremity: Right Weight Bearing/Tolerated Left Lower Extremity: Left Weight Bearing/Tolerated Gait Training Distance: 300' Walk 10 feet (QC): 5 Walk 50 ft with 2 Turns(QC): 5 Walk 150 ft (QC): 5 Gait Persons Needed: 1 Gait Assistive Device: FWW Slow but steady ambulation Treatments bed mobility and transfers, ambulation Assessment Current Status: Fair Progress improving general mobility PT Jail Goals Jail Goals PT Jail Goals Time Frame: Dec 11, 2019 Sit to Lying (QC): 6 Sit to Stand (QC): 6 Walk 150 ft (QC): 6 PT Plan Problem List Problem List: Activity Tolerance, Functional Strength, Safety, Balance, Gait, Transfer Treatment/Plan Treatment Plan: Continue Plan of Care Treatment Plan: Bed Mobility, Education, Functional Activity Vida, Functional Strength, Group Therapy, Gait, Safety, Therapeutic Exercise, Transfers Treatment Duration: Dec 11, 2019 Frequency: 6 times per week Estimated Hrs Per Day: .25 hour per day Patient and/or Family Agrees t: Yes Safety Risks/Education Patient Education: Gait Training, Transfer Techniques, Correct Positioning, Safety Issues Teaching Recipient: Patient Teaching Methods: Demonstration, Discussion Response to Teaching: Reinforcement Needed Time/GCodes Time In: 822 Time Out: 835 Total Billed Treatment Time: 13 Total Billed Treatment 1 visit GT 13' BOONE LOVE PT Nov 30, 2019 08:42
[2019-11-30] MEDS: FOLIC ACID 1 MG TAB PO SCH (08:47)
[2019-11-30] MEDS: TOLTERODINE LA 4 MG (DETROL) CAP PO SCH (08:48)
[2019-11-30] MEDS: TAMSULOSIN 0.4 MG (FLOMAX) CAP PO SCH (08:48)
[2019-11-30] MEDS: LOSARTAN 50 MG (COZAAR) TAB PO SCH (08:48)
[2019-11-30] MEDS: QUEtiapine 100 MG (SEROquel) TAB IMMEDIATE RELEASE PO SCH ×2 (08:48→21:01)
--- NOTE | 2019-11-30 09:22 | Progress Note - Surgery ---
SHANICE BOOTH MED STUDENT 11/30/19 0922: Subjective Date Seen by a Provider: Nov 30, 2019 Time Seen by a Provider: 08:20 Subjective/Events-last exam Pt appears to be feeling well with no acute distress. Abdomen remains distended but Pt claims to be experiencing flatulence. Has been tolerating increase in activity well. Reports no nausea, vomiting, fever, chills. Objective Exam Vital Signs Date Time Temp Pulse Resp B/P (MAP) Pulse Ox O2 Delivery O2 Flow Rate FiO2 11/30/19 09:03 Room Air 11/30/19 07:41 36.6 97 20 146/95 (112) 96 Room Air 11/30/19 07:15 91 Room Air 11/30/19 04:15 36.4 92 16 138/80 (99) 94 Room Air 11/30/19 02:41 Room Air 11/29/19 23:34 36.8 98 18 130/83 (99) 95 Room Air 11/29/19 20:00 Room Air 11/29/19 19:31 37.0 96 15 125/71 (89) 93 Room Air 11/29/19 15:48 36.1 94 15 134/87 (103) 96 Room Air 11/29/19 11:27 37.4 96 18 138/83 (101) 94 Room Air 11/29/19 09:21 36.5 99 94 I & O 11/30/19 07:00 Intake Total 4486 ml Output Total 125 ml Balance 4361 ml Capillary Refill : Less Than 3 SecondsLess Than 3 Seconds General Appearance: No Apparent Distress, WD/WN HEENT: Normal ENT Inspection, Pharynx Normal Neck: Full Range of Motion, Normal Inspection, Non Tender, Supple Respiratory: Chest Non Tender, Lungs Clear, Normal Breath Sounds, No Accessory Muscle Use, No Respiratory Distress Cardiovascular: Regular Rate, Rhythm, No Edema, No Gallop, No JVD, No Murmur Peripheral Pulses: 2+ Dorsalis Pedis (R), 2+ Radial Pulses (R) Gastrointestinal: distended; No guarding, No rebound; tenderness (incisional, c/d/i no erythema) Extremity: No Pedal Edema Neurologic/Psychiatric: Alert, Oriented x3 Skin: Normal Color, Warm/Dry Lymphatic: No Adenopathy Results Lab Laboratory Tests 11/30/19 05:57: White Blood Count 10.6, Red Blood Count 3.63L, Hemoglobin 11.6L, Hematocrit 33L, Mean Corpuscular Volume 92, Mean Corpuscular Hemoglobin 32, Mean Corpuscular Hemoglobin Concent 35, Red Cell Distribution Width 13.3, Platelet Count 174, Mean Platelet Volume 9.1, Sodium Level 134L, Potassium Level 3.9, Chloride Level 105, Carbon Dioxide Level 20L, Anion Gap 9, Blood Urea Nitrogen 15, Creatinine 0.80, Estimat Glomerular Filtration Rate > 60, BUN/Creatinine Ratio 19, Glucose Level 143H, Calcium Level 8.6, Magnesium Level 1.8 Microbiology 11/26/19 MRSA Screen - Final, Complete MRSA not isolated Assessment/Plan Assessment/Plan Assessment/Plan s/p lap hand assisted right colon resection for ascending colon mass abdominal distention ambulate IS await bowel function clears lovenox/scd's for dvt prophylaxis KUB today to evaluate distention Clinical Quality Measures DVT/VTE Risk/Contraindication: Risk Factor Score Per Nursin RFS Level Per Nursing on Admit: 4+=Very High AL GARCIA DO 11/30/191905: Subjective Subjective/Events-last exam Sitting in chair. Pain controlled. States some flatus. Abdomen distended. Ambulating some. IS some. Denies n/v fever sweats chills shortness of breath or chest pain. Objective Exam General Appearance: No Apparent Distress, WD/WN HEENT: Normal ENT Inspection, Pharynx Normal Neck: Full Range of Motion, Non Tender, Supple Respiratory: Chest Non Tender, No Accessory Muscle Use, No Respiratory Distress Cardiovascular: Regular Rate, Rhythm, No Edema Gastrointestinal: distended; No guarding, No rebound; tenderness (incisional, c/d/i no erythema) Neurologic/Psychiatric: Alert, Oriented x3 Skin: Normal Color, Warm/Dry Lymphatic: No Adenopathy Assessment/Plan Assessment/Plan Assessment/Plan s/p lap hand assisted right colon resection for ascending colon mass abdominal distention clear liquids scd/lovenox for dvt prophylaxis KUB await bowel function IS Supervisory-Addendum Brief Verification & Attestation Participated in pt care: history, MDM, physical Personally performed: exam, history, MDM, supervision of care Care discussed with: Medical Student Procedures: n/a Results interpretation: Verified all documentation Verification and Attestation of Medical Student E/M Service A medical student performed and documented this service in my presence. I reviewed and verified all information documented by the medical student and made modifications to such information, when appropriate. I personally performed the physical exam and medical decision making. Al Garcia, Nov 30, 2019,19:23 SHANICE BOOTH MED STUDENT Nov 30, 2019 09:22 AL GARCIA DO Nov 30, 2019 19:06
--- NOTE | 2019-11-30 09:45 | Progress Note - Hospitalist ---
Subjective HPI/CC On Admission Date Seen by Provider: Nov 30, 2019 Time Seen by Provider: 09:45 Subjective/Events-last exam Dr. Garcia ordered a KUB Abdominal region is distended He reports that he is passing gas but unsure if that is reliable Bowels moved two days ago Overall having some difficulty motivating Review of Systems General: Fatigue, Malaise Gastrointestinal: Abdominal Pain Neurological: Weakness Objective Exam Vital Signs Vital Signs Date Time Temp Pulse Resp B/P (MAP) Pulse Ox O2 Delivery O2 Flow Rate FiO2 11/30/19 16:00 36.9 88 18 132/85 (101) 95 Room Air 11/30/19 10:51 21 11/27/19 09:00 3.00 Capillary Refill : Less Than 3 SecondsLess Than 3 Seconds General Appearance: No Apparent Distress, WD/WN Respiratory: Chest Non Tender, Lungs Clear, Normal Breath Sounds, No Accessory Muscle Use, No Respiratory Distress Cardiovascular: Regular Rate, Rhythm, No Edema, No Gallop, No JVD, No Murmur, Normal Peripheral Pulses Neurologic/Psychiatric: Alert, Oriented x3, No Motor/Sensory Deficits, Normal Mood/Affect Results/Procedures Lab Laboratory Tests 11/30/19 05:57 Patient resulted labs reviewed. Assessment/Plan Assessment and Plan Assess & Plan/Chief Complaint Assessment: Gastrointestinal Surgery Post op ileus Mental delay chronic Plan: Appreciate general surgery Monitor blood pressure and blood sugar Clinical Quality Measures DVT/VTE Risk/Contraindication: Risk Factor Score Per Nursin RFS Level Per Nursing on Admit: 4+=Very High KACEY MULTANI DO Nov 30, 2019 09:45
[2019-11-30 10:51] VITALS: BP 146/95
--- NOTE | 2019-11-30 11:44 | Diagnostic Imaging Report ---
EXAMINATION: Abdomen 1 view HISTORY: Abdominal distention. COMPARISON: None available. FINDINGS: Midline skin luis are present. There are dilated loops of large and small bowel throughout the abdomen. No free air is seen. IMPRESSION: 1. Dilated loops of large and small bowel in the setting of skin luis. This is favored to reflect an ileus given history of recent surgery. Dictated by: Dictated on workstation # [id number]
[2019-11-30] MEDS: ENOXAPARIN 40 MG/0.4 ML (LOVENOX) SYR SC SCH (12:15)
[2019-11-30] MEDS ORDERED: RT-ALBUTEROL SULF 2.5 MG/3 ML PRE-MIX VIAL INH PRN (13:00)
--- NOTE | 2019-11-30 14:55 | NUR ---
Report given to Troy COLEY
--- NOTE | 2019-11-30 14:55 | NUR ---
RECEIVED REPORT FROM ERIN COLEY
--- NOTE | 2019-11-30 15:23 | Occupational Ther Daily Note ---
OT Current Status-Daily Note Subjective Pt seen in room, initially very sleepy but willing to awaken. No pain mentioned. Mental Status/Objective Attachments: IV ADL-Treatment Pt said he needed to toilet and wanted to use bathroom instead of urinal. Min assist supine to sit EOB. Sit to stand SBA, and walked with SBA, FWW to bathroom. Pt urinated on floor into bathroom. Scrotum swollen and pt had difficulty placing genitals to point in toilet to urinate. Pt walked SBA, FWW to recliner and was able to get slipper socks off with some difficulty but without help. Also able to remove and don clean gown with assist to manage over IV tubing, Pt washed alberto area and legs with bath pack and clean socks put on. Nursing notified that pt indicated that he would like to get a shower later today. Pt left up in recliner, all needs met. Therapy Code Descriptions/Definitions Functional [place] Measure: 0=Not Assessed/NA 4=Minimal Assistance 1=Total Assistance 5=Supervision or Setup 2=Maximal Assistance 6=Modified [place] 3=Moderate Assistance 7=Complete IndependenceSCALE: Activities may be completed with or without assistive devices. 2-Xxqzvkfhtg-cikiljh completes the activity by him/herself with no assistance from a helper. 5-Set-up or Clean-up Assistance-helper sets up or cleans up; patient completes activity. [place] assists only prior to or following the activity. 4-Supervision or Touching Assistance-helper provides verbal cues and/or touching/steadying and/or contact guard assistance as patient completes activity. Assistance may be provided throughout the activity or intermittently. 3-Partial/Moderate Assistance-helper does LESS THAN HALF the effort. [place] lifts, holds or supports trunk or limbs, but provides less than half the effort. 2-Substantial/Maximal Assistance-helper does MORE THAN HALF the effort. [place] lifts or holds trunk or limbs and provides more than half the effort. 4-Vqcdkdgdo-pofhnv does ALL the effort. Patient does none of the effort to complete the activity. Or, the assistance of 2 or more helpers is required for the patient to complete the activity. If activity was not attempted, code reason: 7-Patient Refused. 9-Not Applicable-not attempted and the patient did not perform the activity before the current illness, exacerbation or injury. 10-Not Attempted due to Environmental Limitations-(lack of equipment, weather restraints, etc.). 88-Not Attempted due to Medical Conditions or Safety Concerns. Education OT Patient Education: Progress toward Goal/Update tx plan, Purpose of tx/functional activities, Safety issues Teaching Recipient: Patient Teaching Methods: Discussion Response to Teaching: Verbalize Understanding, Return Demonstration OT Machine Leather Trimmer Goals Mcfp Goals Time Frame: Dec 04, 2019 Eating (QC): 6 Oral Hygiene (QC): 6 Toileting Hygiene (QC): 6 Shower/Bathe Self (QC): 6 Upper Body Dressing (QC): 6 Lower Body Dressing (QC): 6 On/Off Footwear (QC): 6 1=Demonstrate adherence to instructed precautions during ADL tasks. 2=Patient will verbalize/demonstrate understanding of assistive devices/modifica tions for ADL. 3=Patient will improve strength/tolerance for activity to enable patient to perform ADL's. OT Education/Plan Discharge Recommendations Plan/Recommendations: Continue POC Treatment Plan/Plan of Care Patient would benefit from OT for education, treatment and training to promote independence in ADL's, mobility, safety and/or upper extremity function for ADL's. Plan of Care: ADL Retraining, Functional Mobility, UE Funct Exercise/Act Treatment Duration: Dec 04, 2019 Frequency: 5 times per week Rehab Potential: Good Time/GCodes Start Time: 14:40 Stop Time: 15:06 Total Time Billed (hr/min): 26 Billed Treatment Time visit, 26 minutes ADL NAY BARRETT OT Nov 30, 2019 15:23
[2019-11-30 16:00] VITALS: BP 132/85
[2019-11-30] MEDS: DIVALPROEX 500 MG DELAYED RELEASE (DEPAKOTE) TAB PO SCH (21:02)
[2019-11-30] MEDS: HYDROcodone/APAP 5 MG/325 MG (LORTAB) TAB PO PRN (21:02)
[2019-11-30] MEDS: RT-ALBUTEROL SULF 2.5 MG/3 ML PRE-MIX VIAL INH SCH (21:39)
[2019-11-30] MEDS: morphine INJ 4 MG/ML 1 ML (VIAL/SYRINGE) IVP PRN (22:00)
[2019-12-01 00:50] VITALS: BP 146/88
[2019-12-01] MEDS: RT-ALBUTEROL SULF 2.5 MG/3 ML PRE-MIX VIAL INH SCH ×4 (02:14→22:03)
[2019-12-01] MEDS: HYDROcodone/APAP 5 MG/325 MG (LORTAB) TAB PO PRN (03:58)
[2019-12-01] MEDS: NS IV 1000 ML 1,000 ML IV SCH ×3 (04:14→22:38)
[2019-12-01 05:19] LABS: BASOPHILS % (AUTO) 0 % (0-10); EOSINOPHILS % (AUTO) 0 % (0-10); HEMATOCRIT 33 % (40-54); HEMOGLOBIN 11.4 G/DL (13.3-17.7); LYMPHOCYTES % (AUTO) 19 % (12-44); MEAN CORPUSCULAR HEMOGLOBIN 32 PG (25-34); MEAN CORPUSCULAR HGB CONC 35 G/DL (32-36); MEAN CORPUSCULAR VOLUME 92 FL (80-99); MEAN PLATELET VOLUME 8.8 FL (7.4-10.4); MONOCYTES # (AUTO) 0.9 X 10^3 (0.0-1.0); MONOCYTES % (AUTO) 16 % (0-12); NEUTROPHILS # (AUTO) 3.5 X 10^3 (1.8-7.8); NEUTROPHILS % (AUTO) 65 % (42-75); PLATELET COUNT 202 10^3/uL (130-400); RED CELL DISTRIBUTION WIDTH 13.4 % (10.0-14.5); WHITE BLOOD COUNT 5.4 10^3/uL (4.3-11.0)
[2019-12-01 05:32] LABS: ALBUMIN 3.1 GM/DL (3.2-4.5); CHLORIDE 105 MMOL/L (98-107); POTASSIUM 4.2 MMOL/L (3.6-5.0); SODIUM 135 MMOL/L (135-145)
[2019-12-01 05:33] LABS: CALCIUM 8.5 MG/DL (8.5-10.1)
[2019-12-01 05:34] LABS: GLUCOSE 145 MG/DL (70-105)
[2019-12-01 05:35] LABS: TOTAL PROTEIN 5.3 GM/DL (6.4-8.2)
[2019-12-01 05:36] LABS: CARBON DIOXIDE 23 MMOL/L (21-32)
[2019-12-01 05:37] LABS: BILIRUBIN,TOTAL 0.4 MG/DL (0.1-1.0)
[2019-12-01 05:38] LABS: ALKALINE PHOSPHATASE 47 U/L (40-136); CREATININE SERUM 0.79 MG/DL (0.60-1.30); GFR ESTIMATED > 60
[2019-12-01 05:39] LABS: BUN/CREATININE RATIO 16
[2019-12-01 05:41] LABS: ALANINE AMINOTRANSFERASE 8 U/L (0-55)
[2019-12-01] MEDS: inSUlin ASPART (NovoLOG) 1 UNIT/0.01 ML (CHARGE PER UNIT) SC SCH ×4 (06:17→21:41)
--- NOTE | 2019-12-01 07:24 | Progress Note - Surgery ---
EMMYSHANICE MED STUDENT 12/01/19 0724: Subjective Date Seen by a Provider: Dec 01, 2019 Time Seen by a Provider: 06:50 Subjective/Events-last exam Pt appeared in no acute distress and claims to be feeling better today. Denies any flatulence but is in minimal abdominal pain currently. Last night he had an episode of intense abdominal pain that required morphine to calm him down. Abdomen still shows sign of distention. Pt has been ambulating and will continue to do so. KUB revealed dilated bowels indicative of a post-op ileus. Objective Exam Vital Signs Date Time Temp Pulse Resp B/P (MAP) Pulse Ox O2 Delivery O2 Flow Rate FiO2 12/01/19 02:14 93 Room Air 12/01/19 00:50 36.6 77 18 146/88 (107) 94 Room Air 11/30/19 21:45 Room Air 11/30/19 21:39 94 Room Air 11/30/19 16:00 36.9 88 18 132/85 (101) 95 Room Air 11/30/19 15:29 90 Room Air 11/30/19 10:51 36.6 87 90 21 11/30/19 09:03 Room Air 11/30/19 07:41 36.6 97 20 146/95 (112) 96 Room Air l I & O 12/01/19 07:00 Intake Total 1316 ml Output Total 180 ml Balance 1136 ml Capillary Refill : Less Than 3 SecondsLess Than 3 Seconds General Appearance: No Apparent Distress, WD/WN HEENT: Normal ENT Inspection, Pharynx Normal Neck: Full Range of Motion, Non Tender, Supple Respiratory: Chest Non Tender, Lungs Clear, Normal Breath Sounds, No Accessory Muscle Use, No Respiratory Distress Cardiovascular: Regular Rate, Rhythm, No Edema, No Gallop, No JVD, No Murmur, Normal Peripheral Pulses Peripheral Pulses: 2+ Dorsalis Pedis (R), 2+ Radial Pulses (R) Gastrointestinal: non tender, distended; No guarding, No rebound Extremity: No Pedal Edema Neurologic/Psychiatric: Alert, Oriented x3, No Motor/Sensory Deficits, Normal Mood/Affect Skin: Normal Color, Warm/Dry Lymphatic: No Adenopathy Results Lab Laboratory Tests 12/01/19 04:50: White Blood Count 5.4, Red Blood Count 3.58L, Hemoglobin 11.4L, Hematocrit 33L, Mean Corpuscular Volume 92, Mean Corpuscular Hemoglobin 32, Mean Corpuscular Hemoglobin Concent 35, Red Cell Distribution Width 13.4, Platelet Count 202, Mean Platelet Volume 8.8, Neutrophils (%) (Auto) 65, Lymphocytes (%) (Auto) 19, Monocytes (%) (Auto) 16H, Eosinophils (%) (Auto) 0, Basophils (%) (Auto) 0, Neutrophils # (Auto) 3.5, Lymphocytes # (Auto) 1.0, Monocytes # (Auto) 0.9, Eosinophils # (Auto) 0.0, Basophils # (Auto) 0.0, Sodium Level 135, Potassium Level 4.2, Chloride Level 105, Carbon Dioxide Level 23, Anion Gap 7, Blood Urea Nitrogen 13, Creatinine 0.79, Estimat Glomerular Filtration Rate > 60, BUN/Creatinine Ratio 16, Glucose Level 145H, Calcium Level 8.5, Corrected Calcium 9.2, Total Bilirubin 0.4, Aspartate Amino Transf (AST/SGOT) 9, Alanine Aminotransferase (ALT/SGPT) 8, Alkaline Phosphatase 47, Total Protein 5.3L, Albumin 3.1L Microbiology 11/26/19 MRSA Screen - Final, Complete MRSA not isolated Assessment/Plan Assessment/Plan Assessment/Plan s/p lap hand assisted right colon resection for ascending colon mass abdominal distention post-op ileus clear liquids scd/lovenox for dvt prophylaxis increase activity await bowel function IS Clinical Quality Measures DVT/VTE Risk/Contraindication: Risk Factor Score Per Nursin RFS Level Per Nursing on Admit: 4+=Very High AL GARCIA DO 12/01/191934: Subjective Subjective/Events-last exam Patient sitting in chair. Is not passing flatus or bm. Reports pain controlled now. Using IS some. Ambulating. Tolerating liquids. denies n/v fever sweats chills shortness of breath or chest pain. Objective Exam General Appearance: No Apparent Distress, WD/WN HEENT: PERRL/EOMI, Normal ENT Inspection, Pharynx Normal Neck: Full Range of Motion, Non Tender, Supple Respiratory: Chest Non Tender, No Accessory Muscle Use, No Respiratory Distress Cardiovascular: Regular Rate, Rhythm, No Edema Gastrointestinal: non tender, distended; No guarding, No rebound Extremity: Non Tender, No Calf Tenderness Neurologic/Psychiatric: Alert, Oriented x3, No Motor/Sensory Deficits, Normal Mood/Affect Skin: Normal Color, Warm/Dry Lymphatic: No Adenopathy Assessment/Plan Assessment/Plan Assessment/Plan s/p lap hand assisted right colon resection for ascending colon mass abdominal distention post-op ileus clear liquids scd/lovenox for dvt prophylaxis increase activity await bowel function IS repeat labs in am Supervisory-Addendum Brief Verification & Attestation Participated in pt care: history, MDM, physical Personally performed: exam, history, MDM, supervision of care Care discussed with: Medical Student Procedures: n/a Results interpretation: Verified all documentation Verification and Attestation of Medical Student E/M Service A medical student performed and documented this service in my presence. I reviewed and verified all information documented by the medical student and made modifications to such information, when appropriate. I personally performed the physical exam and medical decision making. Al Garcia, Dec 01, 2019,19:35 SHANICE BOOTH MED STUDENT Dec 01, 2019 07:24 AL GARCIA DO Dec 01, 2019 19:35
[2019-12-01 08:09] VITALS: BP 128/85
[2019-12-01] MEDS: TOLTERODINE LA 4 MG (DETROL) CAP PO SCH (08:39)
[2019-12-01] MEDS: QUEtiapine 100 MG (SEROquel) TAB IMMEDIATE RELEASE PO SCH ×2 (08:39→20:10)
[2019-12-01] MEDS: FOLIC ACID 1 MG TAB PO SCH (08:39)
[2019-12-01] MEDS: LOSARTAN 50 MG (COZAAR) TAB PO SCH (08:40)
[2019-12-01] MEDS: TAMSULOSIN 0.4 MG (FLOMAX) CAP PO SCH (08:40)
--- NOTE | 2019-12-01 09:51 | Physical Therapy Daily Note ---
PT Daily Note-Current Subjective Patient is in recliner and initially declined PT. After much encouragement, patient agrees. Pain Numeric Pain Scale: 0-No Pain Location: No Pain Reported Mental Status Patient Orientation: MR Attachments: IV Transfers SCALE: Activities may be completed with or without assistive devices. 0-Prvsgymaua-vrdkaca completes the activity by him/herself with no assistance from a helper. 5-Set-up or Clean-up Assistance-helper sets up or cleans up; patient completes activity. [place] assists only prior to or following the activity. 4-Supervision or Touching Assistance-helper provides verbal cues and/or touching/steadying and/or contact guard assistance as patient completes activity. Assistance may be provided throughout the activity or intermittently. 3-Partial/Moderate Assistance-helper does LESS THAN HALF the effort. [place] lifts, holds or supports trunk or limbs, but provides less than half the effort. 2-Substantial/Maximal Assistance-helper does MORE THAN HALF the effort. [place] lifts or holds trunk or limbs and provides more than half the effort. 3-Wljpodpzm-fvouuz does ALL the effort. Patient does none of the effort to complete the activity. Or, the assistance of 2 or more helpers is required for the patient to complete the activity. If activity was not attempted, code reason: 7-Patient Refused. 9-Not Applicable-not attempted and the patient did not perform the activity before the current illness, exacerbation or injury. 10-Not Attempted due to Environmental Limitations-(lack of equipment, weather restraints, etc.). 88-Not Attempted due to Medical Conditions or Safety Concerns. Sit to Stand (QC): 6 Weight Bearing Right Lower Extremity: Right Weight Bearing/Tolerated Left Lower Extremity: Left Weight Bearing/Tolerated Gait Training Does the Patient Walk?: Yes Distance: 500' Walk 10 feet (QC): 5 Walk 50 ft with 2 Turns(QC): 5 Walk 150 ft (QC): 5 Gait Assistive Device: FWW safe and functional with no deviation Assessment Patient remains up in recliner with needs met. Plan dismissal this week. PT Fountain Dispenser Goals Fountain Dispenser Goals PT Skilled Nursing Goals Time Frame: Dec 11, 2019 Sit to Lying (QC): 6 Sit to Stand (QC): 6 Walk 150 ft (QC): 6 PT Plan Treatment/Plan Treatment Plan: Continue Plan of Care Treatment Plan: Bed Mobility, Education, Functional Activity [place], Functional Strength, Group Therapy, Gait, Safety, Therapeutic Exercise, Transfers Treatment Duration: Dec 11, 2019 Frequency: 6 times per week Estimated Hrs Per Day: .25 hour per day Patient and/or Family Agrees t: Yes Time/GCodes Time In: 910 Time Out: 928 Total Billed Treatment Time: 18 Total Billed Treatment 1 visit FA 18 min MERCEDES PRINCE PT Dec 01, 2019 09:51
--- NOTE | 2019-12-01 09:56 | Progress Note - Hospitalist ---
Subjective HPI/CC On Admission Date Seen by Provider: Dec 01, 2019 Time Seen by Provider: 09:00 Subjective/Events-last exam Pt walked in the halls Maintain on IV fluid Belching a great deal, but no gas passed Abdomen remains firm from a post-op ileus Clear liquid diet maintained Review of Systems General: Fatigue, Malaise Neurological: Weakness Objective Exam Vital Signs Vital Signs Date Time Temp Pulse Resp B/P (MAP) Pulse Ox O2 Delivery O2 Flow Rate FiO2 12/01/19 16:37 36.8 89 18 141/84 (103) 92 Room Air 11/30/19 10:51 21 11/27/19 09:00 3.00 Capillary Refill : Less Than 3 SecondsLess Than 3 Seconds General Appearance: No Apparent Distress, WD/WN Respiratory: Chest Non Tender, Lungs Clear, Normal Breath Sounds, No Accessory Muscle Use, No Respiratory Distress Cardiovascular: Regular Rate, Rhythm, No Edema, No Gallop, No JVD, No Murmur, Normal Peripheral Pulses Neurologic/Psychiatric: Alert, Oriented x3, No Motor/Sensory Deficits, Normal Mood/Affect Results/Procedures Lab Laboratory Tests 12/01/19 04:50 Patient resulted labs reviewed. Assessment/Plan Assessment and Plan Assess & Plan/Chief Complaint Assessment: Gastrointestinal Surgery Post op ileus Mental delay chronic Plan: Appreciate general surgery Monitor blood pressure and blood sugar 12/01/19: Maintain IV fluids Walk in halls Monitor post op abdominal distension Continue clear liquid diet Clinical Quality Measures DVT/VTE Risk/Contraindication: Risk Factor Score Per Nursin RFS Level Per Nursing on Admit: 4+=Very High KACEY MULTANI DO Dec 01, 2019 09:56
[2019-12-01] MEDS: ENOXAPARIN 40 MG/0.4 ML (LOVENOX) SYR SC SCH (12:15)
--- NOTE | 2019-12-01 12:50 | NUR ---
"RD ASSESSMENT PMHx: HTN; DM; BPH; mental retardation; HLD PT INTERACTION: Pt was awake and pleasant during nutrition assessment. Note pt has mental retardation, per chart review. Most of the answers were short yes/no answers during assessment. Pt states current appetite is good. Note avg PO intake 50-75% x1d, per chart review. Pt states following a regular diet at home, and has no issues with chewing/swallowing food. Pt states no recent issues with nausea, vomiting, constipation, or diarrhea. Note last BM was 11/27 and pt not currently on bowel regimen per chart review. Pt states no recent wt changes. Note unable to determine recent wt hx, per chart review. Pt states current DM management is good. This RD believes he may be unsure of what diabetes is. Note recent HbA1c fo 5.9, taken 11/26/19 per chart review. ABNORMAL NUTRITION-RELATED LAB VALUES LOW: Pro 5.3; alb 3.1 HIGH: glu 145 Est. kcal needs: 1700 kcal | 20 kcal/kg Est. Pro needs: 68 g Pro | 0.8 g Pro/kg PES STATEMENT: Inadequate oral intake (NI-2.1) related to loss of appetite as evidenced by pt interview | avg PO intake 50-75% x1d INTERVENTION: Continue with current diet order of Clear Liquid diet. Would recommend diet advancement when medically able and as tolerated. Did not offer diet education on DM management at this time d/t pt's mental status. Will attempt to offer again with family present prior to discharge. Will continue to follow and reassess as pt needs, intake, and status change. MONITOR/EVALUATE: PO Intake; Plan of Care; Hydration Status; Weight Status; Lab Values Rosmery Browne, MS, RD, LD"
--- NOTE | 2019-12-01 12:55 | Occupational Ther Daily Note ---
OT Current Status-Daily Note Subjective Pt sleeping in chair, woke to name. Pt agrees to therapy. No c/o pain. Mental Status/Objective Patient Orientation: Person, Place, Time, Situation Attachments: IV ADL-Treatment After set up, pt able to wash face and hands. Pt then able to open packages and place contents in coffee. Pt demonstrates fair B UE AROM during eating. After therapy, pt sitting in recliner with call light/phone in reach. All needs met in room. Therapy Code Descriptions/Definitions Functional [place] Measure: 0=Not Assessed/NA 4=Minimal Assistance 1=Total Assistance 5=Supervision or Setup 2=Maximal Assistance 6=Modified [place] 3=Moderate Assistance 7=Complete IndependenceSCALE: Activities may be completed with or without assistive devices. 4-Ifiuzscxsg-hhztbwt completes the activity by him/herself with no assistance from a helper. 5-Set-up or Clean-up Assistance-helper sets up or cleans up; patient completes activity. [place] assists only prior to or following the activity. 4-Supervision or Touching Assistance-helper provides verbal cues and/or touching/steadying and/or contact guard assistance as patient completes activity. Assistance may be provided throughout the activity or intermittently. 3-Partial/Moderate Assistance-helper does LESS THAN HALF the effort. [place] lifts, holds or supports trunk or limbs, but provides less than half the effort. 2-Substantial/Maximal Assistance-helper does MORE THAN HALF the effort. [place] lifts or holds trunk or limbs and provides more than half the effort. 9-Elbnrpmgl-laeofy does ALL the effort. Patient does none of the effort to complete the activity. Or, the assistance of 2 or more helpers is required for the patient to complete the activity. If activity was not attempted, code reason: 7-Patient Refused. 9-Not Applicable-not attempted and the patient did not perform the activity before the current illness, exacerbation or injury. 10-Not Attempted due to Environmental Limitations-(lack of equipment, weather restraints, etc.). 88-Not Attempted due to Medical Conditions or Safety Concerns. Eating (QC): 6 OT Cigar Head Holer Goals Cigar Head Holer Goals Time Frame: Dec 04, 2019 Eating (QC): 6 Oral Hygiene (QC): 6 Toileting Hygiene (QC): 6 Shower/Bathe Self (QC): 6 Upper Body Dressing (QC): 6 Lower Body Dressing (QC): 6 On/Off Footwear (QC): 6 1=Demonstrate adherence to instructed precautions during ADL tasks. 2=Patient will verbalize/demonstrate understanding of assistive devices/modifications for ADL. 3=Patient will improve strength/tolerance for activity to enable patient to perform ADL's. OT Education/Plan Problem List/Assessment Assessment: Decreased Activ Tolerance, Impaired Self-Care Skills Discharge Recommendations Plan/Recommendations: Continue POC Treatment Plan/Plan of Care Patient would benefit from OT for education, treatment and training to promote independence in ADL's, mobility, safety and/or upper extremity function for ADL's. Plan of Care: ADL Retraining, Functional Mobility, UE Funct Exercise/Act Treatment Duration: Dec 04, 2019 Frequency: 5 times per week Rehab Potential: Good Time/GCodes Start Time: 12:35 Stop Time: 12:58 Total Time Billed (hr/min): 23 Billed Treatment Time 1 visit-ADL 2 (23 min) EFREN STANLEY Dec 01, 2019 12:55
[2019-12-01 16:37] VITALS: BP 141/84
--- NOTE | 2019-12-01 19:55 | NUR ---
PT ABD DISTENDED, FIRM NAD HOT. MODERATE SEROSANGUINEOUS LOOKING DRAINAGE COMING AROUND LISA. BOWEL SOUNDS HYPOACTIVE. PT REPORTS NOT PASSING GAS. VS FOLLOW: 130/78 BLOOD PRESSURE, 87 HR, 93%O2 ON RA, 36.[address] VIEYRA NOTIFIED ABOUT SITUATION A NE ORDERS TO PLACE A NG TUBE TO LOW INTERMITTENT SUCTION AND BANDAGE DRESSING TO ABD. WILL CONTINUO TO MONITOR
[2019-12-01] MEDS: DIVALPROEX 500 MG DELAYED RELEASE (DEPAKOTE) TAB PO SCH (20:10)
--- NOTE | 2019-12-01 21:15 | Diagnostic Imaging Report ---
INDICATION: NG tube placement COMPARISONS: 11/28/2019, KUB 11/30/2019. FINDINGS: Single view of the chest and visualized upper abdomen demonstrate an NG tube folded on itself within the esophagus. The loop is in the distal esophagus. Recommend withdrawing and re-advancing. Bibasilar atelectasis and small effusions are present. IMPRESSION: 1. NG tube folded on itself within the esophagus. Recommend withdrawing and re-advancing Dictated by: Dictated on workstation # [id number]
[2019-12-02] VITALS: BP 135/77
[2019-12-02] MEDS: RT-ALBUTEROL SULF 2.5 MG/3 ML PRE-MIX VIAL INH SCH ×4 (02:22→22:33)
[2019-12-02 05:28] LABS: HEMOGLOBIN 10.6 G/DL (13.3-17.7); RED CELL DISTRIBUTION WIDTH 13.8 % (10.0-14.5)
[2019-12-02 05:51] LABS: BUN/CREATININE RATIO 16; CALCIUM 8.6 MG/DL (8.5-10.1); CARBON DIOXIDE 23 MMOL/L (21-32); CHLORIDE 105 MMOL/L (98-107); CREATININE SERUM 0.75 MG/DL (0.60-1.30); GFR ESTIMATED > 60; GLUCOSE 107 MG/DL (70-105); MAGNESIUM 1.9 MG/DL (1.6-2.4); POTASSIUM 3.9 MMOL/L (3.6-5.0); SODIUM 136 MMOL/L (135-145)
[2019-12-02] MEDS: inSUlin ASPART (NovoLOG) 1 UNIT/0.01 ML (CHARGE PER UNIT) SC SCH ×4 (05:56→22:01)
--- NOTE | 2019-12-02 06:29 | Progress Note - Hospitalist ---
Subjective HPI/CC On Admission Date Seen by Provider: Dec 02, 2019 Time Seen by Provider: 10:00 Subjective/Events-last exam Pt doing a lot better since NG tube was placed and removed two liters of gastrointestinal fluid Abdomen is less distended Will order PT and OT Hgb stable at 10.6 with normal WBC Review of Systems General: Fatigue, Malaise Gastrointestinal: Abdominal Pain Neurological: Weakness Objective Exam Vital Signs Vital Signs Date Time Temp Pulse Resp B/P (MAP) Pulse Ox O2 Delivery O2 Flow Rate FiO2 12/02/19 16:00 37.4 97 20 131/70 (90) 93 Room Air 11/30/19 10:51 21 11/27/19 09:00 3.00 Capillary Refill : Less Than 3 SecondsLess Than 3 Seconds General Appearance: No Apparent Distress, WD/WN HEENT: PERRL/EOMI, TMs Normal, Normal ENT Inspection, Pharynx Normal, Moist Mucous Membranes Neck: Full Range of Motion, Normal Inspection, Non Tender, Supple, Carotid Bruit Respiratory: Chest Non Tender, Lungs Clear, Normal Breath Sounds, No Accessory Muscle Use, No Respiratory Distress Cardiovascular: Regular Rate, Rhythm, No Edema, No Gallop, No JVD, No Murmur, Normal Peripheral Pulses Gastrointestinal: Normal Bowel Sounds, No Organomegaly, No Pulsatile Mass, Distended, Tenderness Back: Normal Inspection, No CVA Tenderness, No Vertebral Tenderness Extremity: Normal Capillary Refill, Normal Inspection, Normal Range of Motion, Non Tender, No Calf Tenderness, No Pedal Edema Neurologic/Psychiatric: Alert, Oriented x3, No Motor/Sensory Deficits, Normal Mood/Affect Skin: Normal Color, Warm/Dry Lymphatic: No Adenopathy Results/Procedures Lab Laboratory Tests 12/02/19 04:40 Patient resulted labs reviewed. Assessment/Plan Assessment and Plan Assess & Plan/Chief Complaint Assessment: Gastrointestinal Surgery Post op ileus Mental delay chronic Plan: Appreciate general surgery Monitor blood pressure and blood sugar 12/01/19: Maintain IV fluids Walk in halls Monitor post op abdominal distension Continue clear liquid diet 12/02/19: Maintain ng tube Monitor hemoglobin 10.6 today PT/OT Clinical Quality Measures DVT/VTE Risk/Contraindication: Risk Factor Score Per Nursin RFS Level Per Nursing on Admit: 4+=Very High KACEY MULTANI DO Dec 02, 2019 06:29
[2019-12-02] MEDS: NS IV 1000 ML 1,000 ML IV SCH ×2 (06:52→19:45)
[2019-12-02 07:56] VITALS: BP 134/68
--- NOTE | 2019-12-02 09:04 | Progress Note - Surgery ---
SHANICE BOOTH MED STUDENT 12/02/19 0904: Subjective Date Seen by a Provider: Dec 02, 2019 Time Seen by a Provider: 07:35 Subjective/Events-last exam Pt reports abdominal pain and tenderness has decreased and abdominal distention has decreased. Vomited twice overnight and placed but otherwise denies any more nausea, fever, or chills. Incision site is clean with no visible signs of edema or infection. Objective Exam Vital Signs Date Time Temp Pulse Resp B/P (MAP) Pulse Ox O2 Delivery O2 Flow Rate FiO2 12/02/19 07:56 36.8 97 18 134/68 (90) 91 Room Air 12/02/19 06:46 91 Room Air 12/02/19 02:22 91 Room Air 12/02/19 00:00 36.8 83 18 135/77 (96) 92 Room Air 12/01/19 22:03 91 Room Air 12/01/19 20:00 Room Air 12/01/19 16:37 36.8 89 18 141/84 (103) 92 Room Air 12/01/19 14:12 91 Room Air I & O 12/02/19 07:00 Intake Total 3200 ml Output Total 2375 ml Balance 825 ml Capillary Refill : Less Than 3 SecondsLess Than 3 Seconds General Appearance: No Apparent Distress, WD/WN HEENT: PERRL/EOMI, Normal ENT Inspection, Pharynx Normal Neck: Full Range of Motion, Non Tender, Supple Respiratory: Chest Non Tender, Lungs Clear, Normal Breath Sounds, No Accessory Muscle Use, No Respiratory Distress Cardiovascular: Regular Rate, Rhythm, No Edema, No Gallop, No JVD, No Murmur, Normal Peripheral Pulses Peripheral Pulses: 2+ Dorsalis Pedis (R), 2+ Radial Pulses (R) Gastrointestinal: non tender, distended; No guarding, No rebound Extremity: Non Tender, No Calf Tenderness Neurologic/Psychiatric: Alert, Oriented x3, No Motor/Sensory Deficits, Normal Mood/Affect Skin: Normal Color, Warm/Dry Lymphatic: No Adenopathy Results Lab Laboratory Tests 12/02/19 04:40: White Blood Count 5.0, Red Blood Count 3.36L, Hemoglobin 10.6L, Hematocrit 31L, Mean Corpuscular Volume 93, Mean Corpuscular Hemoglobin 32, Mean Corpuscular Hemoglobin Concent 34, Red Cell Distribution Width 13.8, Platelet Count 230, Mean Platelet Volume 9.0, Sodium Level 136, Potassium Level 3.9, Chloride Level 105, Carbon Dioxide Level 23, Anion Gap 8, Blood Urea Nitrogen 12, Creatinine 0.75, Estimat Glomerular Filtration Rate > 60, BUN/Creatinine Ratio 16, Glucose Level 107H, Calcium Level 8.6, Magnesium Level 1.9 Microbiology 11/26/19 MRSA Screen - Final, Complete MRSA not isolated Assessment/Plan Assessment/Plan Assessment/Plan s/p lap hand assisted right colon resection for ascending colon mass abdominal distention post-op ileus ng tube placed after vomiting clear liquids scd/lovenox for dvt prophylaxis increase activity await bowel function IS repeat labs in am Clinical Quality Measures DVT/VTE Risk/Contraindication: Risk Factor Score Per Nursin RFS Level Per Nursing on Admit: 4+=Very High AL GARCIA DO 12/03/19 1651: Subjective Subjective/Events-last exam Abdomen feeling better today, Pain controlled. Had ng tube placed and abdomen less distended. Placed due to emesis. NPO at this time. Using IS. Ambulating. Denies fever sweats chills shortness of breath or chest pain. Objective Exam General Appearance: No Apparent Distress, WD/WN HEENT: PERRL/EOMI, Normal ENT Inspection, Pharynx Normal Neck: Full Range of Motion, Non Tender, Supple Respiratory: Chest Non Tender, No Accessory Muscle Use, No Respiratory Distress Cardiovascular: Regular Rate, Rhythm, No Edema Gastrointestinal: distended (less) Extremity: Non Tender, No Calf Tenderness Neurologic/Psychiatric: Alert, Oriented x3, No Motor/Sensory Deficits, Normal Mood/Affect Skin: Normal Color, Warm/Dry Lymphatic: No Adenopathy Assessment/Plan Assessment/Plan Assessment/Plan s/p lap hand assisted right colon resection for ascending colon mass abdominal distention post-op ileus ng tube since having emesis and distended less distention and feeling better. ambulate IS await bowel function wait till flatus to restart clears. Supervisory-Addendum Brief Verification & Attestation Participated in pt care: history, MDM, physical Personally performed: exam, history, MDM, supervision of care Care discussed with: Medical Student Procedures: n/a Results interpretation: Verified all documentation Verification and Attestation of Medical Student E/M Service A medical student performed and documented this service in my presence. I reviewed and verified all information documented by the medical student and made modifications to such information, when appropriate. I personally performed the physical exam and medical decision making. Al Garcia, Dec 02, 2019,16:51 SHANICE BOOTH MED STUDENT Dec 02, 2019 09:04 AL GARCIA DO Dec 03, 2019 16:51
--- NOTE | 2019-12-02 09:19 | Physical Therapy Daily Note ---
PT Daily Note-Current Subjective Patient in bed pre tx, agrees to PT, has no complaints of pain. Appearance Patient in shower with nurse tech post tx. Mental Status Patient Orientation: Person Attachments: IV Transfers SCALE: Activities may be completed with or without assistive devices. 3-Zgxuxfufua-qkgnmxr completes the activity by him/herself with no assistance from a helper. 5-Set-up or Clean-up Assistance-helper sets up or cleans up; patient completes activity. [place] assists only prior to or following the activity. 4-Supervision or Touching Assistance-helper provides verbal cues and/or touching/steadying and/or contact guard assistance as patient completes activity. Assistance may be provided throughout the activity or intermittently. 3-Partial/Moderate Assistance-helper does LESS THAN HALF the effort. [place] lifts, holds or supports trunk or limbs, but provides less than half the effort. 2-Substantial/Maximal Assistance-helper does MORE THAN HALF the effort. [place] lifts or holds trunk or limbs and provides more than half the effort. 5-Lvugkugog-bvqnhs does ALL the effort. Patient does none of the effort to complete the activity. Or, the assistance of 2 or more helpers is required for the patient to complete the activity. If activity was not attempted, code reason: 7-Patient Refused. 9-Not Applicable-not attempted and the patient did not perform the activity before the current illness, exacerbation or injury. 10-Not Attempted due to Environmental Limitations-(lack of equipment, weather restraints, etc.). 88-Not Attempted due to Medical Conditions or Safety Concerns. Roll Left & Right (QC): 6 Lying to Sitting/Side of Bed(Q: 3 Sit to Stand (QC): 3 Chair/Mns-yf-Gxnne Xfer(QC): 4 Weight Bearing Right Lower Extremity: Right Weight Bearing/Tolerated Left Lower Extremity: Left Weight Bearing/Tolerated Gait Training Distance: 400' Walk 10 feet (QC): 4 Walk 50 ft with 2 Turns(QC): 4 Walk 150 ft (QC): 4 Gait Persons Needed: 1 Gait Assistive Device: FWW SBA, slow but steady ambulation Treatments transfers, ambulation Assessment Current Status: Fair Progress improving endurance, patient cooperative and motivated PT Chcf Goals Chcf Goals PT Warp Tension Tester Goals Time Frame: Dec 11, 2019 Sit to Lying (QC): 6 Sit to Stand (QC): 6 Walk 150 ft (QC): 6 PT Plan Problem List Problem List: Activity Tolerance, Functional Strength, Safety, Balance, Gait, Transfer, Bed Mobility Treatment/Plan Treatment Plan: Continue Plan of Care Treatment Plan: Bed Mobility, Education, Functional Activity [place], Functional Strength, Group Therapy, Gait, Safety, Therapeutic Exercise, Transfers Treatment Duration: Dec 11, 2019 Frequency: 6 times per week Estimated Hrs Per Day: .25 hour per day Patient and/or Family Agrees t: Yes Safety Risks/Education Patient Education: Gait Training, Transfer Techniques, Correct Positioning, Safety Issues Teaching Recipient: Patient Teaching Methods: Demonstration, Discussion Response to Teaching: Reinforcement Needed Time/GCodes Time In: 901 Time Out: 914 Total Billed Treatment Time: 13 Total Billed Treatment 1 visit GT 13' BOONE LOVE PT Dec 02, 2019 09:19
[2019-12-02] MEDS: TAMSULOSIN 0.4 MG (FLOMAX) CAP PO SCH (09:38)
[2019-12-02] MEDS: TOLTERODINE LA 4 MG (DETROL) CAP PO SCH (09:38)
[2019-12-02] MEDS: LOSARTAN 50 MG (COZAAR) TAB PO SCH (09:38)
[2019-12-02] MEDS: QUEtiapine 100 MG (SEROquel) TAB IMMEDIATE RELEASE PO SCH ×2 (09:39→22:01)
[2019-12-02] MEDS: FOLIC ACID 1 MG TAB PO SCH (09:39)
--- NOTE | 2019-12-02 13:55 | Occupational Ther Daily Note ---
OT Current Status-Daily Note Subjective Pt was sitting in recliner talking on phone with visitor. Pt was comfortable with only completing 1x round of theraband exercise. Pain Location: No Pain Reported Appearance Pt appeared worn out. Mental Status/Objective Patient Orientation: Person, Place, Time, Situation Attachments: IV ADL-Treatment Therapy Code Descriptions/Definitions Functional [place] Measure: 0=Not Assessed/NA 4=Minimal Assistance 1=Total Assistance 5=Supervision or Setup 2=Maximal Assistance 6=Modified [place] 3=Moderate Assistance 7=Complete IndependenceSCALE: Activities may be completed with or without assistive devices. 5-Baznijorpv-zjqyifk completes the activity by him/herself with no assistance from a helper. 5-Set-up or Clean-up Assistance-helper sets up or cleans up; patient completes activity. [place] assists only prior to or following the activity. 4-Supervision or Touching Assistance-helper provides verbal cues and/or touching/steadying and/or contact guard assistance as patient completes activity. Assistance may be provided throughout the activity or intermittently. 3-Partial/Moderate Assistance-helper does LESS THAN HALF the effort. [place] lifts, holds or supports trunk or limbs, but provides less than half the effort. 2-Substantial/Maximal Assistance-helper does MORE THAN HALF the effort. [place] lifts or holds trunk or limbs and provides more than half the effort. 1-Zflaetmyj-dfbngc does ALL the effort. Patient does none of the effort to complete the activity. Or, the assistance of 2 or more helpers is required for the patient to complete the activity. If activity was not attempted, code reason: 7-Patient Refused. 9-Not Applicable-not attempted and the patient did not perform the activity before the current illness, exacerbation or injury. 10-Not Attempted due to Environmental Limitations-(lack of equipment, weather restraints, etc.). 88-Not Attempted due to Medical Conditions or Safety Concerns. Per nrsg, pt had taken shower earlier. Nrsg reported that pt he did well and only received assist for set up and lower legs/feet. Other Treatment Pt requires UE strengthening to be able to functionally complete ADLs. Pt completed 1 set 10 reps of 6 light resistance theraband exercises. Skilled instruction required for technique using verbal prompts and demonstration. Pt fatigued quickly. After session, pt sitting in recliner with call light/phone in reach. All needs met in room. Visitor present in room. Education OT Patient Education: Exercise program (light resistance theraband) Teaching Recipient: Patient Teaching Methods: Demonstration, Discussion Response to Teaching: Verbalize Understanding, Return Demonstration, Reinforcement Needed OT Talent Acquisition Consultant Goals Talent Acquisition Consultant Goals Time Frame: Dec 04, 2019 Eating (QC): 6 Oral Hygiene (QC): 6 Toileting Hygiene (QC): 6 Shower/Bathe Self (QC): 6 Upper Body Dressing (QC): 6 Lower Body Dressing (QC): 6 On/Off Footwear (QC): 6 1=Demonstrate adherence to instructed precautions during ADL tasks. 2=Patient will verbalize/demonstrate understanding of assistive devices/m odifications for ADL. 3=Patient will improve strength/tolerance for activity to enable patient to perform ADL's. OT Education/Plan Problem List/Assessment Assessment: Decreased Activ Tolerance, Impaired Self-Care Skills Discharge Recommendations Plan/Recommendations: Continue POC Treatment Plan/Plan of Care Patient would benefit from OT for education, treatment and training to promote independence in ADL's, mobility, safety and/or upper extremity function for ADL's. Plan of Care: ADL Retraining, Functional Mobility, UE Funct Exercise/Act Treatment Duration: Dec 04, 2019 Frequency: 5 times per week Rehab Potential: Good Time/GCodes Start Time: 13:00 Stop Time: 13:18 Total Time Billed (hr/min): 18 Billed Treatment Time 1 visit-EX 1 (18 min) EFREN STANLEY Dec 02, 2019 13:55
[2019-12-02] MEDS: ENOXAPARIN 40 MG/0.4 ML (LOVENOX) SYR SC SCH (14:24)
[2019-12-02] MEDS: ONDANSETRON 4 MG/2 ML (SDV) Z0FRAN IVP PRN (15:59)
[2019-12-02 16:00] VITALS: BP 131/70
[2019-12-02] MEDS: DIVALPROEX 500 MG DELAYED RELEASE (DEPAKOTE) TAB PO SCH (22:01)
[2019-12-03] VITALS: BP 115/68
[2019-12-03] MEDS: RT-ALBUTEROL SULF 2.5 MG/3 ML PRE-MIX VIAL INH SCH ×3 (02:53→22:43)
[2019-12-03] MEDS: NS IV 1000 ML 1,000 ML IV SCH ×4 (04:02→21:37)
[2019-12-03 05:41] LABS: BASOPHILS % (AUTO) 0 % (0-10); EOSINOPHILS % (AUTO) 0 % (0-10); HEMATOCRIT 28 % (40-54); HEMOGLOBIN 9.3 G/DL (13.3-17.7); LYMPHOCYTES % (AUTO) 34 % (12-44); MEAN CORPUSCULAR HEMOGLOBIN 31 PG (25-34); MEAN CORPUSCULAR HGB CONC 34 G/DL (32-36); MEAN CORPUSCULAR VOLUME 94 FL (80-99); MEAN PLATELET VOLUME 8.7 FL (7.4-10.4); MONOCYTES # (AUTO) 0.7 X 10^3 (0.0-1.0); MONOCYTES % (AUTO) 13 % (0-12); NEUTROPHILS # (AUTO) 3.1 X 10^3 (1.8-7.8); NEUTROPHILS % (AUTO) 53 % (42-75); PLATELET COUNT 188 10^3/uL (130-400); RED CELL DISTRIBUTION WIDTH 13.4 % (10.0-14.5); WHITE BLOOD COUNT 5.8 10^3/uL (4.3-11.0)
[2019-12-03 06:10] LABS: ALANINE AMINOTRANSFERASE 21 U/L (0-55); ALBUMIN 2.4 GM/DL (3.2-4.5); ALKALINE PHOSPHATASE 55 U/L (40-136); BILIRUBIN,TOTAL 0.4 MG/DL (0.1-1.0); BUN/CREATININE RATIO 11; CALCIUM 7.7 MG/DL (8.5-10.1); CARBON DIOXIDE 23 MMOL/L (21-32); CHLORIDE 111 MMOL/L (98-107); CREATININE SERUM 0.75 MG/DL (0.60-1.30); GFR ESTIMATED > 60; GLUCOSE 88 MG/DL (70-105); POTASSIUM 3.5 MMOL/L (3.6-5.0); SODIUM 142 MMOL/L (135-145); TOTAL PROTEIN 4.4 GM/DL (6.4-8.2)
[2019-12-03] MEDS: inSUlin ASPART (NovoLOG) 1 UNIT/0.01 ML (CHARGE PER UNIT) SC SCH ×4 (06:17→21:38)
[2019-12-03 07:43] VITALS: BP 131/90
[2019-12-03] MEDS: LOSARTAN 50 MG (COZAAR) TAB PO SCH (09:13)
[2019-12-03] MEDS: QUEtiapine 100 MG (SEROquel) TAB IMMEDIATE RELEASE PO SCH ×2 (09:13→21:37)
[2019-12-03] MEDS: FOLIC ACID 1 MG TAB PO SCH (09:13)
[2019-12-03] MEDS: TOLTERODINE LA 4 MG (DETROL) CAP PO SCH (09:13)
[2019-12-03] MEDS: TAMSULOSIN 0.4 MG (FLOMAX) CAP PO SCH (09:13)
--- NOTE | 2019-12-03 10:02 | Progress Note - Hospitalist ---
Subjective HPI/CC On Admission Date Seen by Provider: Dec 03, 2019 Time Seen by Provider: 10:00 Subjective/Events-last exam Pt doing pretty well Ambulating around pretty well Labs remain stable Overall doing very well and as expected Unsure of the reliability of his details regarding bowel movements and passing of gas Review of Systems General: Fatigue, Malaise Neurological: Weakness Objective Exam Vital Signs Vital Signs Date Time Temp Pulse Resp B/P (MAP) Pulse Ox O2 Delivery O2 Flow Rate FiO2 12/03/19 16:23 36.6 80 15 173/83 (113) 94 Room Air 12/03/19 14:19 21 11/27/19 09:00 3.00 Capillary Refill : Less Than 3 SecondsLess Than 3 Seconds General Appearance: No Apparent Distress, WD/WN, Chronically ill HEENT: PERRL/EOMI, Normal ENT Inspection, Pharynx Normal, Moist Mucous Membranes Neck: Full Range of Motion, Normal Inspection, Non Tender, Supple, Carotid Bruit Respiratory: Chest Non Tender, Lungs Clear, Normal Breath Sounds, No Accessory Muscle Use, No Respiratory Distress Cardiovascular: Regular Rate, Rhythm, No Edema, No Gallop, No JVD, No Murmur, Normal Peripheral Pulses Gastrointestinal: Normal Bowel Sounds, No Organomegaly, No Pulsatile Mass, Soft, Abnormal Bowel Sounds, Tenderness Back: Normal Inspection, No CVA Tenderness, No Vertebral Tenderness Extremity: Normal Capillary Refill, Normal Inspection, Normal Range of Motion, Non Tender, No Calf Tenderness, No Pedal Edema Neurologic/Psychiatric: Alert, Oriented x3, No Motor/Sensory Deficits, Normal Mood/Affect Skin: Normal Color, Warm/Dry Lymphatic: No Adenopathy Results/Procedures Lab Laboratory Tests 12/03/19 04:55 Patient resulted labs reviewed. Assessment/Plan Assessment and Plan Assess & Plan/Chief Complaint Assessment: Gastrointestinal Surgery Post op ileus Mental delay chronic Plan: Appreciate general surgery Monitor blood pressure and blood sugar 12/01/19: Maintain IV fluids Walk in halls Monitor post op abdominal distension Continue clear liquid diet 12/02/19: Maintain ng tube Monitor hemoglobin 10.6 today PT/OT 12/03/19: Continue to ambulate Supportive care Much improved today NG tube out Clinical Quality Measures DVT/VTE Risk/Contraindication: Risk Factor Score Per Nursin RFS Level Per Nursing on Admit: 4+=Very High KACEY MULTANI DO Dec 03, 2019 10:02
--- NOTE | 2019-12-03 10:15 | Occupational Ther Daily Note ---
OT Current Status-Daily Note Subjective Pt is alert upon entry, pt denies pain. Agreeable to therapy. States readiness for home. Mental Status/Objective Patient Orientation: Person, Place, Situation ADL-Treatment Therapy Code Descriptions/Definitions Functional [place] Measure: 0=Not Assessed/NA 4=Minimal Assistance 1=Total Assistance 5=Supervision or Setup 2=Maximal Assistance 6=Modified [place] 3=Moderate Assistance 7=Complete IndependenceSCALE: Activities may be completed with or without assistive devices. 9-Hhylyuionc-djcyfpj completes the activity by him/herself with no assistance from a helper. 5-Set-up or Clean-up Assistance-helper sets up or cleans up; patient completes activity. [place] assists only prior to or following the activity. 4-Supervision or Touching Assistance-helper provides verbal cues and/or touc dominick/steadying and/or contact guard assistance as patient completes activity. Assistance may be provided throughout the activity or intermittently. 3-Partial/Moderate Assistance-helper does LESS THAN HALF the effort. [place] lifts, holds or supports trunk or limbs, but provides less than half the effort. 2-Substantial/Maximal Assistance-helper does MORE THAN HALF the effort. [place] lifts or holds trunk or limbs and provides more than half the effort. 9-Hdgaoegqh-irfylm does ALL the effort. Patient does none of the effort to complete the activity. Or, the assistance of 2 or more helpers is required for the patient to complete the activity. If activity was not attempted, code reason: 7-Patient Refused. 9-Not Applicable-not attempted and the patient did not perform the activity before the current illness, exacerbation or injury. 10-Not Attempted due to Environmental Limitations-(lack of equipment, weather restraints, etc.). 88-Not Attempted due to Medical Conditions or Safety Concerns. Lower Body Dressing (QC): 3 (min A for threading due to "stiffness" in LEs.) Toileting Hygiene (QC): 4 (SBA for stance. ) Other Treatment Pt sit to stand with SBA, pt at walker level and completes UE theraband ex in stance with no LOB. Pt completes 3/3 ex with ~15 reps bilaterally with/without support of opposite UE on walker for support. Pt reaches down/ travels with walker to pick up driver 3/3 cones with skilled cues for walker placement, CGA-SBA. Pt returns to chair to doff brief in stance, completes bottom hygiene with SBA, and dons pants in sit with min A. Pt returns to chair post-pant hike with all needs met, call light in reach. Education OT Patient Education: Exercise program, Home exercise program, Progress toward Goal/Update tx plan, Purpose of tx/functional activities, Safety issues Teaching Recipient: Patient Teaching Methods: Demonstration, Discussion Response to Teaching: Verbalize Understanding, Return Demonstration, Reinforcement Needed OT Drafter Mechanical Goals Senior Living Goals Time Frame: Dec 04, 2019 Eating (QC): 6 Oral Hygiene (QC): 6 Toileting Hygiene (QC): 6 Shower/Bathe Self (QC): 6 Upper Body Dressing (QC): 6 Lower Body Dressing (QC): 6 On/Off Footwear (QC): 6 1=Demonstrate adherence to instructed precautions during ADL tasks. 2=Patient will verbalize/demonstrate understanding of assistive devices/modifications for ADL. 3=Patient will improve strength/tolerance for activity to enable patient to perform ADL's. OT Education/Plan Problem List/Assessment Assessment: Decreased Activ Tolerance, Impaired I ADL's, Impaired Self-Care Skills Discharge Recommendations Plan/Recommendations: Continue POC Treatment Plan/Plan of Care Treatment,Training & Education: Yes Patient would benefit from OT for education, treatment and training to promote independence in ADL's, mobility, safety and/or upper extremity function for ADL's. Plan of Care: ADL Retraining, Functional Mobility, UE Funct Exercise/Act Treatment Duration: Dec 04, 2019 Frequency: 5 times per week Rehab Potential: Good Time/GCodes Start Time: 09:35 Stop Time: 09:49 Total Time Billed (hr/min): 14 Billed Treatment Time 1, EX (14) JOSIAH AGUILAR OTR Dec 03, 2019 10:15
--- NOTE | 2019-12-03 10:34 | Physical Therapy Daily Note ---
PT Daily Note-Current Subjective Patient is up in recliner and agrees to PT. Pain Numeric Pain Scale: 0-No Pain Location: No Pain Reported Mental Status Patient Orientation: Person, Time, Situation Attachments: IV Transfers SCALE: Activities may be completed with or without assistive devices. 1-Zphcbjjxlz-eotswti completes the activity by him/herself with no assistance from a helper. 5-Set-up or Clean-up Assistance-helper sets up or cleans up; patient completes activity. [place] assists only prior to or following the activity. 4-Supervision or Touching Assistance-helper provides verbal cues and/or touching/steadying and/or contact guard assistance as patient completes activity. Assistance may be provided throughout the activity or intermittently. 3-Partial/Moderate Assistance-helper does LESS THAN HALF the effort. [place] lifts, holds or supports trunk or limbs, but provides less than half the effort. 2-Substantial/Maximal Assistance-helper does MORE THAN HALF the effort. [place] lifts or holds trunk or limbs and provides more than half the effort. 4-Eygnwfnzy-qrukwy does ALL the effort. Patient does none of the effort to complete the activity. Or, the assistance of 2 or more helpers is required for the patient to complete the activity. If activity was not attempted, code reason: 7-Patient Refused. 9-Not Applicable-not attempted and the patient did not perform the activity before the current illness, exacerbation or injury. 10-Not Attempted due to Environmental Limitations-(lack of equipment, weather restraints, etc.). 88-Not Attempted due to Medical Conditions or Safety Concerns. Sit to Stand (QC): 5 Weight Bearing Right Lower Extremity: Right Weight Bearing/Tolerated Left Lower Extremity: Left Weight Bearing/Tolerated Gait Training Does the Patient Walk?: Yes Distance: 600' Walk 10 feet (QC): 5 Walk 50 ft with 2 Turns(QC): 5 Walk 150 ft (QC): 5 Gait Assistive Device: FWW safe and functional with no deviation Exercises Supine Ex: Ankle pumps, Quad Set Supine Reps: 12 Seated Therapy Exercises: Ankle pumps, Long arc quads Seated Reps: 12 Assessment Patient progressing with treatment plan. Nursing to continue with ambulation PRN. PT Longterm Goals Radiation / Chemistry Technician Goals PT Longterm Goals Time Frame: Dec 11, 2019 Sit to Lying (QC): 6 Sit to Stand (QC): 6 Walk 150 ft (QC): 6 PT Plan Treatment/Plan Treatment Plan: Continue Plan of Care Treatment Plan: Bed Mobility, Education, Functional Activity Vida, Functional Strength, Group Therapy, Gait, Safety, Therapeutic Exercise, Transfers Treatment Duration: Dec 11, 2019 Frequency: 6 times per week Estimated Hrs Per Day: .25 hour per day Patient and/or Family Agrees t: Yes Time/GCodes Time In: 959 Time Out: 1011 Total Billed Treatment Time: 12 Total Billed Treatment 1 visit FA 12 min MERCEDES PRINCE PT Dec 03, 2019 10:34
[2019-12-03] MEDS: ENOXAPARIN 40 MG/0.4 ML (LOVENOX) SYR SC SCH (11:46)
[2019-12-03 14:19] VITALS: BP 131/90
--- NOTE | 2019-12-03 14:35 | Progress Note - Surgery ---
EMMYSHANICE YANG MED STUDENT 12/03/19 1435: Subjective Date Seen by a Provider: Dec 03, 2019 Time Seen by a Provider: 07:10 Subjective/Events-last exam Pt comfortable and pain controlled. Reports flatulence has begun and abdominal pain is subsiding. No BM currently but distention is decreasing. Hematoma has formed on RLQ but is nontender. Denies n/v, fever, chills, sob, chest pain. Objective Exam Vital Signs Date Time Temp Pulse Resp B/P (MAP) Pulse Ox O2 Delivery O2 Flow Rate FiO2 12/03/19 14:19 37.0 109 91 21 12/03/19 08:00 Room Air 12/03/19 07:43 37.0 109 18 131/90 (104) 91 Room Air 12/03/19 07:26 93 Room Air 12/03/19 02:53 92 Room Air 12/03/19 00:00 37.6 108 18 115/68 (84) 94 Room Air 12/02/19 21:00 Room Air 12/02/19 16:00 37.4 97 20 131/70 (90) 93 Room Air I & O 12/03/19 07:00 Intake Total 0 ml Output Total 1350 ml Balance -1350 ml Capillary Refill : Less Than 3 SecondsLess Than 3 Seconds General Appearance: No Apparent Distress, WD/WN HEENT: PERRL/EOMI, TMs Normal, Normal ENT Inspection, Pharynx Normal, Moist Mucous Membranes Neck: Full Range of Motion, Normal Inspection, Non Tender, Supple, Carotid Bruit Respiratory: Chest Non Tender, Lungs Clear, Normal Breath Sounds, No Accessory Muscle Use, No Respiratory Distress Cardiovascular: Regular Rate, Rhythm, No Edema, No Gallop, No JVD, No Murmur, Normal Peripheral Pulses Peripheral Pulses: 2+ Dorsalis Pedis (R), 2+ Radial Pulses (R) Gastrointestinal: non tender, distended; No guarding, No rebound; mass (hematoma RLQ) Extremity: Normal Capillary Refill, Normal Inspection, Normal Range of Motion, Non Tender, No Calf Tenderness, No Pedal Edema Neurologic/Psychiatric: Alert, Oriented x3, No Motor/Sensory Deficits, Normal Mood/Affect Skin: Normal Color, Warm/Dry Lymphatic: No Adenopathy Results Lab Laboratory Tests 12/02/19 15:58: Glucometer 120H 12/02/19 20:15: Glucometer 92 12/03/19 04:55: White Blood Count 5.8, Red Blood Count 2.96L, Hemoglobin 9.3L, Hematocrit 28L, Mean Corpuscular Volume 94, Mean Corpuscular Hemoglobin 31, Mean Corpuscular Hemoglobin Concent 34, Red Cell Distribution Width 13.4, Platelet Count 188, Mean Platelet Volume 8.7, Neutrophils (%) (Auto) 53, Lymphocytes (%) (Auto) 34, Monocytes (%) (Auto) 13H, Eosinophils (%) (Auto) 0, Basophils (%) (Auto) 0, Neutrophils # (Auto) 3.1, Lymphocytes # (Auto) 2.0, Monocytes # (Auto) 0.7, Eosinophils # (Auto) 0.0, Basophils # (Auto) 0.0, Sodium Level 142, Potassium Level 3.5L, Chloride Level 111H, Carbon Dioxide Level 23, Anion Gap 8, Blood Urea Nitrogen 8, Creatinine 0.75, Estimat Glomerular Filtration Rate > 60, BUN/Creatinine Ratio 11, Glucose Level 88, Calcium Level 7.7L, Corrected Calcium 9.0, Total Bilirubin 0.4, Aspartate Amino Transf (AST/SGOT) 24, Alanine Aminotransferase (ALT/SGPT) 21, Alkaline Phosphatase 55, Total Protein 4.4L, Albumin 2.4L 12/03/19 05:07: Glucometer 82 12/03/19 11:26: Glucometer 90 Microbiology 11/26/19 MRSA Screen - Final, Complete MRSA not isolated Assessment/Plan Assessment/Plan Assessment/Plan s/p lap hand assisted right colon resection for ascending colon mass abdominal distention post-op ileus ng tube placed after vomiting clear liquids scd/lovenox for dvt prophylaxis increase activity await bowel function IS repeat labs in am Clinical Quality Measures DVT/VTE Risk/Contraindication: Risk Factor Score Per Nursin RFS Level Per Nursing on Admit: 4+=Very High AL GARCIA DO 12/03/19 1769: Subjective Subjective/Events-last exam Ng tube got pulled out. Passing flatus heard by nurses. Feeling better. Ambulating and using IS Denies n/v fever sweats chills shortness of breath or chest pain. Objective Exam General Appearance: No Apparent Distress, WD/WN HEENT: PERRL/EOMI, TMs Normal, Normal ENT Inspection, Pharynx Normal Neck: Full Range of Motion, Non Tender Respiratory: Chest Non Tender, No Accessory Muscle Use, No Respiratory Distress Cardiovascular: Regular Rate, Rhythm, No Edema Gastrointestinal: non tender, distended (minimal) Extremity: Normal Capillary Refill, Non Tender, No Calf Tenderness Neurologic/Psychiatric: Alert, Oriented x3, No Motor/Sensory Deficits, Normal Mood/Affect Skin: Normal Color, Warm/Dry Lymphatic: No Adenopathy Assessment/Plan Assessment/Plan Assessment/Plan s/p lap hand assisted right colon resection for ascending colon mass abdominal distention post-op ileus passing flatus start clears ambulate IS if can advance diet home soon Supervisory-Addendum Brief Verification & Attestation Participated in pt care: history, MDM, physical Personally performed: exam, history, MDM, supervision of care Care discussed with: Medical Student Procedures: n/a Results interpretation: Verified all documentation Verification and Attestation of Medical Student E/M Service A medical student performed and documented this service in my presence. I reviewed and verified all information documented by the medical student and made modifications to such information, when appropriate. I personally performed the physical exam and medical decision making. Al Garcia, Dec 03, 2019,16:53 SHANICE BOOTH MED STUDENT Dec 03, 2019 14:35 AL GARCIA DO Dec 03, 2019 16:54
[2019-12-03 16:23] VITALS: BP 173/83
[2019-12-03] MEDS: DIVALPROEX 500 MG DELAYED RELEASE (DEPAKOTE) TAB PO SCH (21:37)
[2019-12-04] VITALS: BP 167/86
[2019-12-04] MEDS: inSUlin ASPART (NovoLOG) 1 UNIT/0.01 ML (CHARGE PER UNIT) SC SCH ×2 (05:22→11:23)
[2019-12-04 05:33] LABS: BASOPHILS % (AUTO) 0 % (0-10); EOSINOPHILS # (AUTO) 0.1 10^3/uL (0.0-0.3); EOSINOPHILS % (AUTO) 1 % (0-10); HEMATOCRIT 28 % (40-54); HEMOGLOBIN 9.6 G/DL (13.3-17.7); LYMPHOCYTES # (AUTO) 1.5 X 10^3 (1.0-4.0); LYMPHOCYTES % (AUTO) 25 % (12-44); MEAN CORPUSCULAR HEMOGLOBIN 32 PG (25-34); MEAN CORPUSCULAR HGB CONC 34 G/DL (32-36); MEAN CORPUSCULAR VOLUME 93 FL (80-99); MEAN PLATELET VOLUME 8.5 FL (7.4-10.4); MONOCYTES # (AUTO) 0.7 X 10^3 (0.0-1.0); MONOCYTES % (AUTO) 11 % (0-12); NEUTROPHILS # (AUTO) 3.7 X 10^3 (1.8-7.8); NEUTROPHILS % (AUTO) 63 % (42-75); PLATELET COUNT 234 10^3/uL (130-400); RED CELL DISTRIBUTION WIDTH 13.6 % (10.0-14.5); WHITE BLOOD COUNT 5.9 10^3/uL (4.3-11.0)
[2019-12-04] MEDS: NS IV 1000 ML 1,000 ML IV SCH (05:40)
[2019-12-04 05:53] LABS: ALANINE AMINOTRANSFERASE 24 U/L (0-55); ALBUMIN 2.6 GM/DL (3.2-4.5); ALKALINE PHOSPHATASE 61 U/L (40-136); BILIRUBIN,TOTAL 0.4 MG/DL (0.1-1.0); BUN/CREATININE RATIO 7; CALCIUM 7.9 MG/DL (8.5-10.1); CARBON DIOXIDE 22 MMOL/L (21-32); CHLORIDE 109 MMOL/L (98-107); CREATININE SERUM 0.71 MG/DL (0.60-1.30); GFR ESTIMATED > 60; GLUCOSE 97 MG/DL (70-105); POTASSIUM 3.1 MMOL/L (3.6-5.0); SODIUM 141 MMOL/L (135-145); TOTAL PROTEIN 4.5 GM/DL (6.4-8.2)
[2019-12-04] MEDS ORDERED: POTASSIUM CL 10MEQ/50ML IVPB 50 ML IV ONE (06:15)
[2019-12-04] MEDS ORDERED: MAGNESIUM 1 GM/100 ML IVPB 100 ML IV ONE (06:15)
[2019-12-04] MEDS ORDERED: MAGNESIUM 1 GM/100 ML IVPB 100 ML IV NR (06:15)
[2019-12-04 07:33] VITALS: BP 158/81
[2019-12-04] MEDS: FOLIC ACID 1 MG TAB PO SCH (08:11)
[2019-12-04] MEDS: LOSARTAN 50 MG (COZAAR) TAB PO SCH (08:11)
[2019-12-04] MEDS: TOLTERODINE LA 4 MG (DETROL) CAP PO SCH (08:11)
[2019-12-04] MEDS: TAMSULOSIN 0.4 MG (FLOMAX) CAP PO SCH (08:12)
[2019-12-04] MEDS: POTASSIUM CL 10MEQ/50ML IVPB 50 ML IV SCH ×4 (08:12→10:30)
[2019-12-04] MEDS: QUEtiapine 100 MG (SEROquel) TAB IMMEDIATE RELEASE PO SCH (08:12)
--- NOTE | 2019-12-04 09:27 | Physical Therapy Daily Note ---
PT Daily Note-Current Subjective Patient agrees to PT. Mental Status Patient Orientation: MR Attachments: IV Transfers SCALE: Activities may be completed with or without assistive devices. 3-Yfiqcjbdns-rjzelzm completes the activity by him/herself with no assistance from a helper. 5-Set-up or Clean-up Assistance-helper sets up or cleans up; patient completes activity. [place] assists only prior to or following the activity. 4-Supervision or Touching Assistance-helper provides verbal cues and/or touching/steadying and/or contact guard assistance as patient completes activity. Assistance may be provided throughout the activity or intermittently. 3-Partial/Moderate Assistance-helper does LESS THAN HALF the effort. [place] lifts, holds or supports trunk or limbs, but provides less than half the effort. 2-Substantial/Maximal Assistance-helper does MORE THAN HALF the effort. [place] l ifts or holds trunk or limbs and provides more than half the effort. 9-Ibzipomvd-rjaehl does ALL the effort. Patient does none of the effort to complete the activity. Or, the assistance of 2 or more helpers is required for the patient to complete the activity. If activity was not attempted, code reason: 7-Patient Refused. 9-Not Applicable-not attempted and the patient did not perform the activity before the current illness, exacerbation or injury. 10-Not Attempted due to Environmental Limitations-(lack of equipment, weather restraints, etc.). 88-Not Attempted due to Medical Conditions or Safety Concerns. Sit to Stand (QC): 6 Weight Bearing Right Lower Extremity: Right Weight Bearing/Tolerated Left Lower Extremity: Left Weight Bearing/Tolerated Gait Training Does the Patient Walk?: Yes Distance: 600' Walk 10 feet (QC): 5 Walk 50 ft with 2 Turns(QC): 5 Walk 150 ft (QC): 5 Gait Assistive Device: FWW safe and functional with no deviation Assessment PT consulted with RN on nursing to continue ambulating with patient PRN. PT Care Home Goals Care Home Goals PT Care Home Goals Time Frame: Dec 11, 2019 Sit to Lying (QC): 6 Sit to Stand (QC): 6 Walk 150 ft (QC): 6 PT Plan Treatment/Plan Treatment Plan: Continue Plan of Care Treatment Plan: Bed Mobility, Education, Functional Activity Vida, Functional Strength, Group Therapy, Gait, Safety, Therapeutic Exercise, Transfers Treatment Duration: Dec 11, 2019 Frequency: 6 times per week Estimated Hrs Per Day: .25 hour per day Patient and/or Family Agrees t: Yes Time/GCodes Time In: 909 Time Out: 920 Total Billed Treatment Time: 11 Total Billed Treatment 1 visit FA 11 min MERCEDES PRINCE PT Dec 04, 2019 09:27
--- NOTE | 2019-12-04 09:54 | NUR ---
Pt is using a front wheel walker since his surgery. He will likely need to continue to use walker at home for balance and was able to provide one through [facility] donation closet. The walker is in his room and he can take home at discharge. Pt lives in an adult foster home and no one in the home has any medical training. Brigid COLEY from [facility] will need to be notified of pt discharge if over the week-end as she is station manager and will assist with transportation home and with home instructions. Her contact number is [phone].
[2019-12-04] MEDS: RT-ALBUTEROL SULF 2.5 MG/3 ML PRE-MIX VIAL INH SCH (10:28)
--- NOTE | 2019-12-04 11:06 | Progress Note - Hospitalist ---
Subjective HPI/CC On Admission Date Seen by Provider: Dec 04, 2019 Time Seen by Provider: 10:00 Subjective/Events-last exam Potassium low at 3.1, supplement with IV supplement Pt functioning pretty well Has plenty of help at home Bowels are moving Discharge likely today Review of Systems General: Fatigue, Malaise Neurological: Weakness Objective Exam Vital Signs Vital Signs Date Time Temp Pulse Resp B/P (MAP) Pulse Ox O2 Delivery O2 Flow Rate FiO2 12/04/19 16:50 12/04/19 16:01 37.8 96 16 95 Room Air 12/03/19 14:19 21 Capillary Refill : Less Than 3 SecondsLess Than 3 Seconds General Appearance: No Apparent Distress, WD/WN HEENT: PERRL/EOMI, TMs Normal, Normal ENT Inspection, Pharynx Normal, Moist Mucous Membranes Neck: Full Range of Motion, Normal Inspection, Non Tender, Supple, Carotid Brui t Respiratory: Chest Non Tender, Lungs Clear, Normal Breath Sounds, No Accessory Muscle Use, No Respiratory Distress Cardiovascular: Regular Rate, Rhythm, No Edema, No Gallop, No JVD, No Murmur, Normal Peripheral Pulses Gastrointestinal: Normal Bowel Sounds, No Organomegaly, No Pulsatile Mass, Non Tender, Soft Back: Normal Inspection, No CVA Tenderness, No Vertebral Tenderness Extremity: Normal Capillary Refill, Normal Inspection, Normal Range of Motion, Non Tender, No Calf Tenderness, No Pedal Edema Neurologic/Psychiatric: Alert, Oriented x3, No Motor/Sensory Deficits, Normal Mood/Affect Skin: Normal Color, Warm/Dry Lymphatic: No Adenopathy Results/Procedures Lab Laboratory Tests 12/04/19 04:45 Patient resulted labs reviewed. Assessment/Plan Assessment and Plan Assess & Plan/Chief Complaint Assessment: Gastrointestinal Surgery Post op ileus Mental delay chronic Plan: Appreciate general surgery Monitor blood pressure and blood sugar 12/01/19: Maintain IV fluids Walk in halls Monitor post op abdominal distension Continue clear liquid diet 12/02/19: Maintain ng tube Monitor hemoglobin 10.6 today PT/OT 12/03/19: Continue to ambulate Supportive care Much improved today NG tube out 12/04/19: Replace potassium Bowels are moving Has plenty of helpers at home Discharge today supported by medicine service Clinical Quality Measures DVT/VTE Risk/Contraindication: Risk Factor Score Per Nursin RFS Level Per Nursing on Admit: 4+=Very High KACEY MULTANI DO Dec 04, 2019 11:06
[2019-12-04] MEDS: ENOXAPARIN 40 MG/0.4 ML (LOVENOX) SYR SC SCH (11:22)
--- NOTE | 2019-12-04 12:45 | Occupational Ther Daily Note ---
OT Current Status-Daily Note Subjective Pt seen in recliner, nursing present. Pt agrees to OT tx session. Pt denies pain. ADL-Treatment Therapy Code Descriptions/Definitions Functional [place] Measure: 0=Not Assessed/NA 4=Minimal Assistance 1=Total Assistance 5=Supervision or Setup 2=Maximal Assistance 6=Modified [place] 3=Moderate Assistance 7=Complete IndependenceSCALE: Activities may be completed with or without assistive devices. 7-Jqdlxudtug-wnxltlk completes the activity by him/herself with no assistance from a helper. 5-Set-up or Clean-up Assistance-helper sets up or cleans up; patient completes activity. [place] assists only prior to or following the activity. 4-Supervision or Touching Assistance-helper provides verbal cues and/or touching/steadying and/or contact guard assistance as patient completes activity. Assistance may be provided throughout the activity or intermittently. 3-Partial/Moderate Assistance-helper does LESS THAN HALF the effort. [place] lifts, holds or supports trunk or limbs, but provides less than half the effort. 2-Substantial/Maximal Assistance-helper does MORE THAN HALF the effort. [place] lifts or holds trunk or limbs and provides more than half the effort. 0-Boklilzxi-sagoet does ALL the effort. Patient does none of the effort to complete the activity. Or, the assistance of 2 or more helpers is required for the patient to complete the activity. If activity was not attempted, code reason: 7-Patient Refused. 9-Not Applicable-not attempted and the patient did not perform the activity before the current illness, exacerbation or injury. 10-Not Attempted due to Environmental Limitations-(lack of equipment, weather restraints, etc.). 88-Not Attempted due to Medical Conditions or Safety Concerns. Lower Body Dressing (QC): 3 (min A for threading BLE, sit to stand SBA and completes hike with SBA) Toileting Hygiene (QC): 4 (SBA) Other Treatment Pt seen in chair, states wet. Pt stands to doff over feet. Sits to don with min A. Pt stands and completes brief donning with min cues for thoroughness. Pt returns to sit, dons new gown. Pt's dressing (abdominal) wet- nursing notified. Pt completes minimal UE theraband ex with SUP, completes with IND. Pt continues to complete upon OT exit. All needs met, call light in reach, pt remains in recliner. Education OT Patient Education: Correct positioning, Exercise program, Home exercise program, Progress toward Goal/Update tx plan Teaching Recipient: Patient Teaching Methods: Demonstration, Discussion Response to Teaching: Verbalize Understanding, Return Demonstration OT [facility]itentiary Goals Floor Coverings Salesperson Goals Time Frame: Dec 04, 2019 Eating (QC): 6 Oral Hygiene (QC): 6 Toileting Hygiene (QC): 6 Shower/Bathe Self (QC): 6 Upper Body Dressing (QC): 6 Lower Body Dressing (QC): 6 On/Off Footwear (QC): 6 1=Demonstrate adherence to instructed precautions during ADL tasks. 2=Patient will verbalize/demonstrate understanding of assistive devices/modifications for ADL. 3=Patient will improve strength/tolerance for activity to enable patient to perform ADL's. OT Education/Plan Problem List/Assessment Assessment: Decreased Activ Tolerance, Impaired I ADL's, Impaired Self-Care Skills Discharge Recommendations Plan/Recommendations: Continue POC Therapy Discharge Recommendati: Assisted Living Treatment Plan/Plan of Care Treatment,Training & Education: Yes Patient would benefit from OT for education, treatment and training to promote independence in ADL's, mobility, safety and/or upper extremity function for ADL's. Plan of Care: ADL Retraining, Functional Mobility, UE Funct Exercise/Act Treatment Duration: Dec 04, 2019 Frequency: 5 times per week Rehab Potential: Good Time/GCodes Start Time: 11:23 Stop Time: 11:33 Total Time Billed (hr/min): 10 Billed Treatment Time 1, ADL (10) JOSIAH AGUILAR OTR Dec 04, 2019 12:45
--- NOTE | 2019-12-04 12:47 | NUR ---
Inpatient Rehab Referral Received order to evaluate patient for admission to the inpatient rehab unit. After reviewing therapy notes, patient is ambulating 600 feet, safe and functional gait with no deviation. Patient does not meet criteria for admission to the inpatient rehab unit as he does not require the active and ongoing therapeutic intervention of multiple therapy disciplines, one of which must be physical or occupational therapy. Thank you for the referral.
[2019-12-04 16:01] VITALS: BP 158/84
--- NOTE | 2019-12-04 16:17 | Discharge Inst-Simple/Standard ---
Discharge Inst-Standard Patient Instructions/Follow Up Plan of Care/Instructions/FU: 2 weeks Radha Activity as Tolerated: No Discharge Diet: Regular Diet Other Inst to Patient Follow up Appt: Make appointment for 2 week. Instructions: No lifting greater than 10 pounds. No strenuous activity. May shower in 24 hours, no tub bath or soaking. Use incentive spirometer at home as directed. No Smoking Skin/Wound Care: Keep bandage on incision and change daily, if saturated change as needed. Symptoms to Report: Appetite Changes, Extremity Discoloration, Numbness/Tingling, Swelling Increased, Bleeding Excessive, Eyesight Changes, Pain Increased, Urine Color Change, Constipation(Persistent), Fever over 101 degree F, Pain/Pressure in chest, Urinating Difficulty, Cough Up/Vomit Blood, Heart Beat Irreg/Pounding, Pain/Pressure in jaw, Vaginal Bleeding Increase, Cramps in feet or legs, Lightheadedness, Pain/Pressure in shoulder, Diarrhea(Persistent), Memory Changes Suddenly, Questions/Concerns, Weight gain consecutive days, Dizziness/Fainting, Nausea/Vomiting, Shortness of Breath, Weight gain over 2 pounds If questions or concerns contact your physician Or seek help at emergency department. Planned Outpatient Orders/Ref. Pneu Vac Indicated: Yes AL VIEYRA DO Dec 04, 2019 16:17
== END 2019-12-04 16:45 | disposition home or self-care (01) | DRG 330 ==
LOC: 4TH 06:05 → SURG 06:06 → 4TH 10:50
PROVIDERS: ADMIT Surgery; ATTEND Surgery
PROC: 0DTF0ZZ Resection of Right Large Intestine, Open Approach (ICD-10-PCS; principal; 2019-11-26 07:59)
DX: C18.2 Malignant neoplasm of ascending colon (principal); K56.7 Ileus, unspecified; I10 Essential (primary) hypertension; J45.909 Unspecified asthma, uncomplicated; E11.9 Type 2 diabetes mellitus without complications; F70 Mild intellectual disabilities; N40.0 Benign prostatic hyperplasia without lower urinary tract symptoms; E78.5 Hyperlipidemia, unspecified; F17.210 Nicotine dependence, cigarettes, uncomplicated
CPT/HCPCS: 36415; 71045; 74018; 80048; 80053; 82962; 83036; 83735; 85007; 85025; 85027; 86850; 86900; 86901; 87081; 94640; 94664; 94760

== ENCOUNTER 2022-11-07 05:38 | Outpatient (CLI) | payer MEDICAID ==
[~2022-11-07] VITALS: Ht 162.6 cm; Wt 84.7 kg
[~2022-11-07 05:38] MED LIST changes: -FOLI1TAB24 PO; +FOLI1TAB33 PO; +GLBR2.5T PO; -GLYB2.5T4 PO; +QUET300T19 PO; -QUET300T44 PO
[2022-11-08] MEDS ORDERED: FOLI1TAB33 PO (13:00)
[2022-11-08] MEDS ORDERED: METO-333 PO (13:00)
[2022-11-08] MEDS ORDERED: DIVA250T12 PO (13:00)
[2022-11-08] MEDS ORDERED: FERR324T PO (13:00)
== END 2022-11-08 13:03 ==
LOC: PREOP 05:38
PROVIDERS: ATTEND Surgery
DX: Z01.818 Encounter for other preprocedural examination (principal)

== ENCOUNTER 2022-12-11 07:43 | Day surgery (SDC) | payer MEDICAID ==
[~2022-12-11] VITALS: Ht 162.6 cm; Wt 84.7 kg
[~2022-12-11 07:43] MED LIST changes: +DIVA250T12 PO; +FERR324T PO
[2022-12-11] MEDS ORDERED: LACTATED RINGERS 1,000 ML 1,000 ML IV STA (07:57)
[2022-12-11 08:05] VITALS: BP 133/92
[2022-12-11] MEDS ORDERED: MIDAZOLAM INJ 2 MG/2 ML VIAL ONE (09:27)
[2022-12-11 10:00] VITALS: BP 94/53
--- NOTE | 2022-12-11 10:01 | Progress Note-Post Operative ---
Post-Operative Progess Note Surgeon (s)/Continuous Process Rotary Drum Tanner (s) Surgeon AL VIEYRA DO Continuous Process Rotary Drum Tanner: none Pre-Operative Diagnosis hx of polyps Post-Operative Diagnosis colon polyps Procedure & Operative Findings Date of Procedure 12/11/22 Procedure Performed/Findings colonoscopy with hot biopsy polypectomy x 4 Anesthesia Type per MASTIC MAN Estimated Blood Loss Estimated blood loss (mL): none Specimens/Packing Specimens Removed colon polyps AL VIEYRA DO Dec 11, 2022 10:01
--- NOTE | 2022-12-11 10:03 | Discharge Inst-Simple/Standard ---
Discharge Inst-Standard Patient Instructions/Follow Up Plan of Care/Instructions/FU: jeff 2 weeks Activity as Tolerated: Yes Discharge Diet: Regular Diet AL VIEYRA DO Dec 11, 2022 10:03
[2022-12-11 10:10] VITALS: BP 105/76
[2022-12-11 10:45] VITALS: BP 105/76
--- NOTE | 2022-12-11 10:51 | OPERATIVE REPORT ---
DATE OF SERVICE: 12/11/2022 PREOPERATIVE DIAGNOSIS: History of polyps. POSTOPERATIVE DIAGNOSIS: Colon polyps. PROCEDURE: Colonoscopy with hot biopsy polypectomy x4. SURGEON: Al Garcia DO ANESTHESIA: Per SCREEN PRINTING CLOTH SPREADER. ESTIMATED BLOOD LOSS: None. COMPLICATIONS: None. INDICATIONS: The patient is a 57-year-old male with history of polyps. He has had a previous right colon resection. He understands risks and benefits of procedure and wished to proceed. Consent was signed in chart. DESCRIPTION OF PROCEDURE: The patient was taken to the endoscopy suite, placed in left lateral recumbent position. Timeout was performed. Digital rectal exam was performed. No palpable polyps, masses or ulcerations. Scope was inserted in the rectum, advanced all the way to the ileocolonic anastomosis. A small polyp was present near the ileocolonic anastomosis. Hot biopsy polypectomy was performed. Scope was then continuously retracted back. No polyps, masses or ulcerations from the ileocolonic anastomosis until in the sigmoid colon where there were 2 polyps present, which hot biopsy polypectomy was performed. Scope was then continuously retracted back into the rectum, where another small polyp was present, which hot biopsy polypectomy was performed. Scope was inserted and retracted multiple times, noting no other pathology. Scope was returned to its normal position, slowly withdrawn until completely removed. The patient tolerated the procedure well, no complications, taken to recovery room in stable condition. RECOMMENDATIONS: The patient will need repeat colonoscopy in 5 years. Any issues before that, be seen at that time, he will follow up on pathology in 2 weeks. Job ID: [id number] DocumentID: [id number] Dictated Date: 12/11/2022 09:59:18 La[address] Driver Date: 12/11/2022 10:49:00 Dictated By: AL GARCIA DO
--- NOTE | 2022-12-11 14:03 | Anesthesia-General Post-Op ---
MAC Patient Condition Mental Status/LOC: Same as Preop Cardiovascular: Satisfactory Nausea/Vomiting: Absent Respiratory: Satisfactory Pain: Controlled Complications: Absent Post Op Complications Complications None Follow Up Care/Instructions Patient Instructions None needed. Anesthesiology Discharge Order Discharge Order Patient is doing well, no complaints, stable vital signs, no apparent adverse anesthesia problems. No complications reported per nursing. CATRACHITO ESQUIVEL CRNA Dec 11, 2022 14:03
== END 2022-12-11 10:45 | disposition home or self-care (01) ==
LOC: ENDO 07:43
PROVIDERS: ATTEND Surgery
DX: Z12.11 Encounter for screening for malignant neoplasm of colon (principal); K63.5 Polyp of colon; F17.210 Nicotine dependence, cigarettes, uncomplicated; Z90.49 Acquired absence of other specified parts of digestive tract
CPT/HCPCS: 88305